=== PATIENT | female | born 1970 | race Caucasian/White ===

== ENCOUNTER 2023-01-27 10:19 | Outpatient (OUT) | payer MEDICARE, SELFPAY ==
--- NOTE | 2023-01-27 10:22 | XR_ITS ---
[facility] [id number] Patient Name: MARY JANE SANTOS MRN: [id number] date: 1970 Sex: F Assigned Patient Location: [facility] Current Patient Location: [facility] Accession/Order Number: [id number] Exam Date: 01/27/2023 10:30 Report Date: 01/27/2023 11:14 At the request of: AFIA LAO Procedure: XR knee LT 4V EXAM: XR knee LT 4V HISTORY: Left Knee Pain M25.562 COMPARISON: None. TECHNIQUE: Four views of the left knee. FINDINGS: No acute fracture or dislocation. No knee effusion identified. Moderate to severe tricompartmental degenerative changes are present, greatest at the patellofemoral articulation. There is a linear high density foreign body present in the region of the anterior soft tissues of the proximal delcid, which may represent a soft tissue foreign body or may be on the skin surface. XR/XR knee LT 4V IMPRESSION: 1. No acute osseous abnormality. 2. Question of a soft tissue foreign body versus surface debris at the anterior proximal delcid. 3. Advanced tricompartmental degenerative change. Electronically authenticated by: VESTA CROCKETT Date: 01/27/2023 11:14
== END 2023-01-27 10:20 | disposition home or self-care (01) ==
LOC: RAD 10:19
PROVIDERS: PCP Nurse Practitioner Family; Visit Provider Orthopaedic Surgery
DX: M25.562 Pain in left knee (principal)
CPT/HCPCS: 73564

== ENCOUNTER 2023-02-27 15:29 | Outpatient (REF) | payer MEDICARE, SELFPAY ==
[2023-02-27 16:24] LABS: Internal Control Within Normal Limits; Strep A Antigen Screen Negative
== END 2023-02-27 15:30 | disposition home or self-care (01) ==
LOC: LAB 15:29
PROVIDERS: PCP Nurse Practitioner Family; Visit Provider Nurse Practitioner Family
DX: J02.9 Acute pharyngitis, unspecified (principal)
CPT/HCPCS: 87070; 87880

== ENCOUNTER 2023-05-27 17:03 | Outpatient (REF) | payer MEDICARE, SELFPAY ==
[2023-05-27 17:28] LABS: Influenza Virus A Antigen Negative; Influenza Virus B Antigen Negative; Internal Control Within Normal Limits; SARS-CoV-2 Ag NEGATIVE (NEGATIVE)
[2023-05-28 10:20] LABS: SARS-CoV-2 NAA NOT DETECTED (NOT DETECTE)
== END 2023-05-27 17:04 | disposition home or self-care (01) ==
LOC: LAB 17:03
PROVIDERS: PCP Nurse Practitioner Family; Visit Provider Nurse Practitioner Family
DX: R05.9 Cough, unspecified (principal)
CPT/HCPCS: 87635; 87804; 87811

== ENCOUNTER 2023-06-17 14:48 | Outpatient (OUT) | payer MEDICARE, MEDICAID, SELFPAY ==
--- OUTSIDE RECORDS SUMMARY | 2023-06-17 14:55 | XMS_ITS | CCD ---
Author Name Unknown Address [address] [facility] [address] [place] [address] Organization [facility] Care Team Providers Care Clinical Manager Home Care Name Role Phone ANTONIO BRIAN Unavailable Unavailable JARAD NULL Unavailable Unavailab le HOY, SEA Primary Care Unavailable HOY, SEA Referring Unavailable ELTAHAWY, EHAB A Admitting Unavailable ELTAHAWY, EHAB A Attending Unavailable HOMau, SEA Primary Care Unavailable HOY, SEA Referring Unavailable ELTAHAWY, EHAB A Admitting Unavailable ELTAHAWY, EHAB A Attending Unavailable Jasmine, Anila Unavailable Arthur Moy Unavailable MD Arthur Moy Attending Provider [phone] SHANTANU, ANN Primary Care Unavailable JASMINE, ANILA Admitting Unavailable JASMINE, ANILA Attending Unavailable JASMINE, ANILA Consulting Unavailable SHANTANU, ANN Primary Care Unavailable SHANTANU, ANN Admitting Unavailable SHANTANU, ANN Attending Unavailable SHANTANU, ANN Consulting Unavailable Zieber, Win Consulting Unavailable SHANTANU, ANN Primary Care Unavailable SHANTANU, ANN Admitting Unavailable ANN FOURNIER Attending Unavailable SHANTANU, ANN Consulting Unavailable JASMINE, ANILA Admitting Unavailable JASMINE, ANILA Attending Unavailable JASMINE, ANILA Consulting Unavailable SHANTANU, ANN Primary Care Unavailable SAMSA ., DENYS Admitting Unavailable SAMSA ., DENYS Attending Unavailable Win Hall Consulting Unavailable SHANTANU, ANN Primary Care Unavailable LAYLA ., DENYS Consulting Unavailable AMILCAR, DR AZEEM Whyte Admitting Unavailable AMILCAR, DR AZEEM Whyte Attending Unavailable AMILCAR, DR AZEEM Whyte Consulting Unavailable SHANTANU, ANN Primary Care Unavailable WIN KOHLI Consulting Unavailable SHANTANU, ANN Primary Care Unavailable PAY ., DR HURD Admitting Unavailable PAY ., DR HURD Attending Unavailable PAY ., DR HURD Consulting Unavailable ANN FOURNIER Primary Care Unavailable ANN FOURNIER Admitting Unavailable ANN FOURNIER Attending Unavailable ANN FOURNIER Consulting Unavailable Misha Christian Unavailable ENEDINA ROMERO Attending Unavailable CAROLYN Fournier Primary Care Provider MD Anila Granados Attending Provider Ann Fournier Primary Care Unavailable Anila Granados Admitting Unavailable Anila Granados Attending Unavailable Olexa, Arthur Attending Unavailable Olexa, Arthur Admitting Unavailable Olexa, Arthur Admitting Unavailable Olexa, Arthur Attending Unavailable Allergies Allergy Classification Reported Allergen(s) Allergy Type Date of Onset Reaction(s) Facility Acetaminophen / oxyCODONE (1 source) Acetaminophen / oxyCODONE Drug Allergy 021 [facility] Repository Aspirin (1 source) Aspirin Drug Allergy 021 [facility] Cephalosporins (antibiotic) (3 sources) Cephalexin; 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: [cephalexin] Drug Allergy 021 [facility] Macrolides (antibiotic) (1 source) Clarithromycin Drug Allergy 021 [facility] Penicillins (antibiotic) (1 source) Penicillin Drug Allergy 021 [facility] Quinolones (antibiotic) (2 sources) moxifloxacin; 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: [Cipro] Drug Allergy 021 [facility] Sulfamethoxazole / Trimethoprim (1 source) Sulfamethoxazole / Trimethoprim Drug Allergy 021 [facility] Unclassified (10 sources) Adhesive agent Drug allergy (disorder) 021 Unknown [facility] Repository (9 sources) Acetaminophen / oxyCODONE Drug Allergy Unknown [employer] Other (9 sources) Aspirin Drug Allergy Unknown [employer] Other (10 sources) cefprozil; 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: [Cefzil] Drug Allergy 013 Unknown [facility] Repository (9 sources) Cephalexin Drug Allergy Unknown [facility] Other (9 sources) Cephalosporins (Antibiotic) Propensity to adverse reactions Hives [facility] Other (18 sources) Ciprofloxacin; 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: [ciprofloxacin] Drug Allergy Unknown [facility] Other (18 sources) moxifloxacin Drug Allergy Hives [facility] Other (9 sources) oxyCODONE Drug Allergy nausea [facility] Other (9 sources) penicillAMINE Drug Allergy anaphylaxis [facility] Other (9 sources) Penicillins Propensity to adverse reactions Unknown [facility] Other (10 sources) Soy protein; 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: [soy] Propensity to adverse reactions anaphylaxis [facility] Repository (9 sources) Sulfamethoxazole Drug Allergy Anaphylaxis [facility] Other (9 sources) Sulfamethoxazole / Trimethoprim Drug Allergy anaphylaxis [facility] Other (9 sources) Sulfanilamide Drug Allergy Anaphylaxis [facility] Other (9 sources) Trimethoprim Drug Allergy Anaphylaxis [facility] Other (9 sources) Foam Tape Propensity to adverse reactions Unknown [facility] Other (9 sources) BCise Propensity to adverse reactions stomach upset [facility] Other (9 sources) Avalox Propensity to adverse reactions Unknown [facility] Other (1 source) Acetaminophen / oxyCODONE Drug Allergy [facility] Repository (1 source) Aspirin Drug Allergy [facility] Repository (1 source) Cephalexin Drug Allergy [facility] Repository (1 source) Ciprofloxacin Drug Allergy [facility] Repository (1 source) Clarithromycin Drug Allergy [facility] Repository (1 source) Desonide Drug Allergy [facility] Repository (1 source) egg extract Drug Allergy [facility] Repository (1 source) moxifloxacin Drug Allergy [facility] Repository (1 source) Penicillins Drug allergy (disorder) [facility] Repository (1 source) Sulfamethoxazole / Trimethoprim Drug Allergy [facility] Repository (1 source) tomato allergenic extract Drug Allergy [facility] (1 source) Misc-ENV; 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: [Misc-ENV] Propensity to adverse reactions (disorder) [facility] Repository (1 source) Misc-Other; 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: [Misc-Other] Propensity to adverse reactions (disorder) [facility] Repository (1 source) Misc-Food; 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: [Misc-Food] Food allergy (disorder) [facility] Repository (6 sources) Azithromycin Drug Allergy rash [employer] Other Medications Current Medications Medication Drug Class(es) Dates Sig (Normalized) Sig (Original) [id number] 200 actuat albuterol 0.09 mg/actuat metered dose inhaler (17 sources) beta2-Adrenergic Agonist Albuterol Sulfate (2.5 MG/3ML) 0.083% Inhalation for 30 Days Active take 2 puff(s) by in halation every four hours as needed Ventolin HFA 108 (90 Base) MCG/ACT 2 puffs as needed Inhalation every 4 hrs Active allopurinol 300 mg oral tablet (9 sources) Xanthine Oxidase Inhibitor take 1 tablet by mouth every twenty-four hours Allopurinol 300 MG 1 tablet Orally Once a day Active ascorbic acid 250 mg chewable tablet (3 sources) Vitamin C take 1 tablet by mouth every twenty-four hours Vitamin C 250 MG 1 tablet Orally Once a day Active biotin 10 mg oral tablet (9 sources) take 1 tablet by mouth once daily Biotin 10 MG 1 tablet Orally Once a day Active 120 actuat budesonide 0.16 mg/actuat / formoterol fumarate 0.0045 mg/actuat metered dose inhaler (9 sources) Corticosteroid, beta2-Adrenergic Agonist take 2 puff(s) by inhalation twice daily Symbicort 160-4.5 MCG/ACT 2 puffs Inhalation Twice a day Active cholecalciferol 0.05 mg oral capsule (6 sources) Vitamin D take 1 capsule by mo [facility] every twenty-four hours Vitamin D3 50 MCG (1999 UT) 1 capsule Orally Once a day Active Cholest Off 450 MG (9 sources) take 450 mg by mouth twice daily Cholest Off 450 MG Orally TWICE A DAY Active Cholest Off 450 MG Orally Active Cinnamon Preparation (9 sources) Non-Standardized Food Allergenic Extract take 1000 mg by mouth twice maura y Cinnamon 1000 MG as directed Orally TWICE A DAY Active Cinnamon 1000 MG as directed Orally Active cyclobenzaprine hydrochlorid e 10 mg oral tablet (9 sources) Muscle Relaxant Flexeril 10mg 1 Oral once daily Active docusate sodium 250 mg oral capsule (9 sources) take 1 capsule by mo [facility] every twenty-four hours Stool Softener 250 MG 1 capsule as needed Orally Once a day Active take 3 capsules by [facility] every twenty-four hours Stool Softener 250 MG 3 capsule as needed Orally Once a day Active 0.5 ML dulaglutide 9 MG/ML A uto-Injector [Trulicity] (9 sources) GLP-1 Receptor Agonist inject 3 mg by subcu taneous injection every week Trulicity 4.5 MG/0.5ML 3mg Subcutaneous weekly for 84 days Active 2 ml dupilumab 150 mg/ml auto-injector (9 sources) Interleukin-4 Receptor alpha Antagonist Dupixent 300 MG/2ML as directed Subcutaneous EVERY 14 DAYS Active famotidine 20 mg oral tablet (9 sources) Histamine-2 Receptor Antagonist take 1 tablet by mouth every twenty-four hours Pepcid 20 MG 1 tablet Orally Once a day Active fenofibrate 160 mg oral tablet (9 sources) Peroxisome Proliferator Receptor alpha Agonist take 1 tablet by mouth every twenty-four hours Fenofibrate 160 MG 1 tablet Orally Once a day Active fexofenadine hydrochloride 180 mg oral tablet (9 sources) Histamine-1 Receptor Antagonist take 1 tablet by mouth every twenty-four hours Fexofenadine HCl 180 MG 1 tablet Orally Once a day for 30 day(s) Active Fiber (Guar Gum) 15 Grams (9 sources) take 15 g by mouth once daily Fi jamal (Guar Gum) 15 Grams as directed Orally once a day Active fluticasone propionate 0.05 mg/actuat metered dose nasal spray (9 sources) Corticosteroid take 2 spray(s) nasa l route once daily Fluticasone Propionate 50 MCG/ACT 2 sprays Nasally Once a day for 30 day(s) Active FreeStyle Lisbeth 14 Day Senso r - (8 sources) Start: 08-03-2019 Start: 08-03-2019 FreeStyle Libr e 14 Day Sensor - as directed SQ change every 14 days for 84 days Jul, Active FreeStyle Lisbeth 2 Sensor - (9 sources) Start: 11-15-2020 Start: 11-15-2020 FreeStyle Libr e 2 Sensor - as directed SQ change every 14 days for 84 days Oct, Active furosemide 40 mg oral tablet (9 sources) Loop Diuretic take 1 tablet by mouth every twelve hours Lasix 40 mg 1 tablet Orally bid for 90 day(s) Active insulin, regular, human 500 unt/ml injectable solution (9 sources) Insulin HumuLIN R U-500 (CONCENTRATED) 500 UNIT/ML as directed Subcutaneous INSULIN PUMP Active Iron (9 sources) Iron (Ferrous Gl uconate) 325 MG Orally Active krill oil 300 mg oral capsul e (9 sources) Krill Oil 300 MG Orally Active levothyroxine sodium 0.175 mg oral tablet (9 sources) l-Thyroxine Levothyroxine So dium 175 MCG 1 tablet every morning on an empty stomach Orally Once a day Active metoprolol tartrate 50 mg oral tablet (9 sources) beta-Adrenergic Jennifer take 1 tablet by mouth every twelve hours Metoprolol Tartrate 50 MG 1 tablet Orally Twice a day for 30 day(s) Active montelukast 10 mg oral tablet (9 sources) Leukotriene Receptor Antagonist take 1 tablet by mouth every twenty-four hours Singulair 10 MG 1 tablet Orally Once a day not surer of doseage Active Multivitamins (9 sources) Multivitamins as directed Orally Active OmniPod Dash 5 Pack - (3 sources) OmniPod Dash 5 P ack - as directed In Vitro Change every 72 hours for 90 days Active Omnipod DASH Pods (Gen 4) - (2 sources) Omnipod DASH Pod s (Gen 4) - for 90 Days Active One Touch Glucometer 1 (3 sources) Start: 7 One Touch Glucometer 1 as directed SQ qid for 365 days Oct, Active pantoprazole 40 mg delayed release oral tablet (9 sources) Proton Pump Inhibitor take 1 tablet by mouth every twelve hours Protonix 40 mg 1 tablet Orally bid Active Pen Pepin 5/16 (3 sources) Start: 9 Pen Pepin 5/16 USE WITH PEN INSULIN SQ qid for 90 day(s) Jul, Active pregabalin 100 mg oral capsule (9 sources) take 1 capsule by mouth every eight hours Lyrica 100 MG 1 capsule Orally tid Active Probiotic - (9 sources) Probiotic - Oral ly Active Spiriva Respimat 2.5 mcg/act uation (9 sources) Spiriva Respimat 2.5 mcg/actuation 2 puffs daily Active Super B Complex (9 sources) Super B Complex Active traMADol hydrochloride 50 mg oral tablet (4 sources) Opioid Agonist Start: 10-07-2022 take 1 tablet by mouth every six hours as needed for pain traMADol HCl 50 MG 1 tablet as needed for pain Orally up to every 6 hrs for 7 days ANIYAH: [id number] September, Active triamcinolone acetonide 0.001 mg/mg topical ointment (8 sources) Corticosteroid Triamcinolone Acetonide 0.1 % External for 90 Days Active Vitamin C 250 MG (6 sources) take 1 tablet by mouth once maura y Vitamin C 250 MG 1 tablet Orally Once a day Active Vitamin E 400 UNIT (9 sources) take 1 capsule by mouth once aileen ly Vitamin E 400 UNIT 1 capsule Orally Once a day Active Zinc (1 source) take 1 tablet by eva th once daily Zinc 50 MG 1 tablet Orally Once a day Active zinc gluconate 50 mg oral tablet (5 sources) take 1 tablet by eva th every twenty-four hours Completed/Discontinued Medications Medication Drug Class(es) Dates Sig (Normalized) Sig (Original) doxycycline hyclate 100 mg oral capsule (1 source) Tetracycline-clas s Drug Doxycycline Hyclate 100 MG Oral for 14 Days Not-Taking Durolane (1 source) Start: 11-11-2022 Durolane Oct, 60 mg zileuton 600 mg oral tablet (2 sources) 5-Lipoxygenase Inhibitor take 2 tablets by mouth every twelve hours Zyflo 600 MG 2 tablet orally bid Not-Taking Problems Active Problems Problem Classification Problem Date Documented Date Episodic/Chronic Asthma (20 sources) Cough variant asthma; 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: [Cough variant asthma] Onset: 08-24-2007 Chronic Chronic kidney disease (20 sources) Chronic kidney disease stage 2; 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: [CKD (chronic kidney disease) stage 2, GFR 60-89 ml/min] Onset: 09-10-2021 Chronic Chronic kidney disease (13 sources) Chronic kidney disease; 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: [Chronic kidney disease, stage III (moderate)] Onset: 08-02-2021 Resolved: 02-11-2022 Chronic obstructive pulmonary disease and bronchiectasis (2 sources) Unspecified chronic bronchitis; 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: [Chronic obstructive pulmonary disease with (acute) exacerbation] Onset: 09-06-2021 Chronic Coronary atherosclerosis and other heart disease (1 source) Coronary atherosclerosis and other heart disease Onset: 11-06-2017 Deficiency and other anemia (9 sources) Anemia in chronic kidney disease; 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: [Anemia in chronic kidney disease] Chronic Deficiency and other anemia (9 sources) Iron deficiency anemia; 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: [Iron deficiency anemia] Episodic Diabetes mellitus with complications (20 sources) Disorder of kidney due to diabetes mellitus; 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: [Type 2 diabetes mellitus with diabetic nephropathy] Onset: 02-10-2012 Resolved: 02-11-2022 Chronic Diabetes mellitus without complication (20 sources) Insulin dose changed; 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: [Encounter for fitting and adjustment of insulin pump] Onset: 08-24-2007 Chronic Diabetes mellitus without complication (10 sources) Insulin pump present; 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: [Presence of insulin pump (external) (internal)] Onset: 02-07-2022 Episodic Diabetes mellitus without complication (1 source) Diabetes mellitus without complication; 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: [Type 2 diabetes mellitus with diabetic chronic kidney disease] Onset: 04-30-2023 Disorders of lipid metabolism (20 sources) Hyperlipidemia; 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: [Other and unspecified hyperlipidemia] Onset: 08-24-2007 Chronic Esophageal disorders (10 sources) Gastroesophageal reflux disease; 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: [GERD [Gastroesophageal reflux disease]] Onset: 09-06-2021 Chronic Essential hypertension (9 sources) Essential hypertension; 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: [Essential (primary) hypertension] Chronic Fluid and electrolyte disorders (6 sources) Other disorders of electrolyte and fluid balance, not elsewhere classified; 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: [OTHER D/O ELECTROLYTE AND FL BAL NEC] Onset: 08-02-2021 Resolved: 02-11-2022 Episodic Hypertension with complications and secondary hypertension (19 sources) Chronic kidney disease due to hypertension; 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: [Hypertensive chronic kidney disease with stage 1 through stage 4 chronic kidney disease, or unspecified chronic kidney disease] Onset: 08-02-2021 Resolved: 02-11-2022 Chronic Nonspecific chest pain (1 source) Chest pain, unspecified; 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: [Chest pain, unspecified] Onset: 11-06-2017 Episodic Nutritional deficiencies (15 sources) Vitamin D deficiency; 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: [Vitamin D deficiency, unspecified] Onset: 08-02-2021 Resolved: 02-11-2022 Chronic Osteoarthritis (20 sources) Osteoarthritis; 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: [DJD (degenerative joint disease)] Onset: 08-24-2007 Chronic Other aftercare (9 sources) Long-term current use of insulin; 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: [skilled nursing (current) use of insulin] Episodic Other aftercare (9 sources) H/O: high risk medication; 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: [Other terminal supervisor (current) drug therapy] Episodic Other diseases of kidney and ureters (9 sources) Renal osteodystrophy; 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: [Renal osteodystrophy] Chronic Other endocrine disorders (9 sources) 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; 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: [Other hypoglycemia] Chronic Other endocrine disorders (6 sources) Hypoparathyroidism; 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: [Hypoparathyroidism, unspecified] Chronic Other endocrine disorders (3 sources) Hypoparathyroidism, unspecified; 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: [Hypoparathyroidism, unspecified] Onset: 04-30-2023 Chronic Other inflammatory condition of skin (1 source) Pruritus, unspecified Episodic Other lower respiratory disease (9 sources) Dyspnea on exertion; 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: [Dyspnea on exertion] Episodic Other nervous system disorders (9 sources) Chronic pain; 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: [Other chronic pain] Chronic Other nervous system disorders (6 sources) Paresthesia; 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: [Paresthesia of skin] Episodic Other nervous system disorders (1 source) Anesthesia of skin Episodic Other nervous system disorders (1 source) Paresthesia of skin Episodic Other non-traumatic joint disorders (9 sources) Lower limb joint arthritis; 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: [Osteoarthrosis, unspecified whether generalized or localized, lower leg] Onset: 11-26-2007 Chronic Other non-traumatic joint disorders (4 sources) Pain in left hip; 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: [PAIN IN LEFT HIP] Onset: 07-08-2022 Episodic Other nutritional; endocrine; and metabolic disorders (20 sources) Body mass index 40+ - severely obese; 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: [Body mass index (BMI) 50.0-59.9, adult] Chronic Other nutritional; endocrine; and metabolic disorders (9 sources) Morbid obesity; 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: [Morbid (severe) obesity due to excess calories] Chronic Other nutritional; endocrine; and metabolic disorders (3 sources) Morbid (severe) obesity due to excess calories; 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: [MORBID SEVERE OBES D/T EXCESS VANI] Onset: 09-10-2021 Chronic Other nutritional; endocrine; and metabolic disorders (1 source) Body mass index (BMI) 45.0-49.9, adult; 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: [BODY MASS INDEX BMI 45.0-49.9 ADULT] Onset: 09-10-2021 Chronic Other nutritional; endocrine; and metabolic disorders (4 sources) Severe obesity; 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: [Morbid (severe) obesity due to excess calories] Chronic Other nutritional; endocrine; and metabolic disorders (2 sources) Body mass index (BMI) 50.0-59.9, adult Chronic Other upper respiratory disease (9 sources) Allergic rhinitis; 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: [Allergic rhinitis due to other allergen] Onset: 06-09-2009 Chronic Other upper respiratory infections (10 sources) Chronic sinusitis; 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: [Unspecified sinusitis (chronic)] Onset: 06-09-2009 Chronic Spondylosis; intervertebral disc disorders; other back problems (20 sources) Solitary sacroiliitis; 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: [Sacroiliitis, not elsewhere classified] Chronic Spondylosis; intervertebral disc disorders; other back problems (1 source) Cervicalgia Episodic Thyroid disorders (19 sources) Hypothyroidism; 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: [Hypothyroidism, unspecified] Onset: 08-24-2007 Chronic Unclassified (2 sources) Chest pain, unspecified / R07.9(ICD-9) Onset: 11-06-2017 Unclassified (1 source) Shortness of breath / R06.02(ICD-9) Onset: 11-06-2017 Unclassified (1 source) Supraventricular tachycardia / I47.1(ICD-9) Onset: 11-06-2017 Unclassified (1 source) Morbid (severe) obesity due to excess calories / E66.01(ICD-9) Onset: 11-06-2017 Unclassified (1 source) CHRN KIDNEY DISEASE STG 3 UNSP; 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: [CHRN KIDNEY DISEASE STG 3 UNSP] Onset: 08-19-2022 Unclassified (1 source) CONTACT W/AND (SUSP) EXPOS COVID-19; 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: [CONTACT W/AND (SUSP) EXPOS COVID-19] Onset: 05-18-2022 Unclassified (1 source) Pain in left knee; 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: [Pain in left knee] Onset: 09-23-2022 Unclassified (1 source) Pain in right shoulder; 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: [Pain in right shoulder] Onset: 08-19-2022 Past or Other Problems Problem Classification Problem Date Documented Date Episodic/Chronic Deficiency and other anemia (1 source) Anemia, unspecified; 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: [ANEMIA UNSPECIFIED] Onset: 02-07-2022 Episodic Fever of unknown origin (4 sources) Fever, unspecified; 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: [FEVER UNSPECIFIED] Onset: 05-13-2022 Episodic Other aftercare (1 source) Other terminal supervisor (current) drug therapy; 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: [OTH MANAGER PROGRAM MANAGEMENT CURRENT DRUG THERAPY] Onset: 09-10-2021 Episodic Other aftercare (1 source) skilled nursing (current) use of insulin; 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: [MANAGER PROGRAM MANAGEMENT CURRENT USE OF INSULIN] Onset: 09-10-2021 Episodic Other connective tissue disease (1 source) Other enthesopathies, not elsewhere classified Onset: 10-22-2021 Resolved: 10-22-2021 Episodic Other disorders of stomach and duodenum (9 sources) Gastroparesis syndrome; 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: [Gastroparesis] Onset: 02-10-2012 Episodic Other lower respiratory disease (3 sources) Shortness of breath; 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: [SHORTNESS OF BREATH] Onset: 09-04-2021 Episodic Other non-traumatic joint disorders (1 source) Pain in left shoulder Onset: 10-22-2021 Resolved: 10-22-2021 Episodic Other upper respiratory infections (3 sources) Acute pharyngitis, unspecified; 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: [ACUTE PHARYNGITIS UNSPECIFIED] Onset: 09-07-2021 Episodic Residual codes; unclassified (1 source) Acquired absence of other specified parts of digestive tract; 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: [ACQ ABSENCE OTH PART DIGESTV TRACT] Onset: 09-10-2021 Episodic Results Test Name Value Interpretation Reference Range Facility Albumin [Mass/volume] in Ser um or Plasma by Bromocresol green (BCG) dye binding methoOrdered By: Anila Granados on 04-30-2023 Albumin BCG dye [Mass/Vol] 3.8 g/dL 3.5-5.7 [facility] Automated erythrocytes count in urine sediment (number/area)Ordered By: Anila Granados on 04-30-2023 RBC Auto (Urine sed) [#/Area] 5-9 [HPF] 0-4 [facility] Automated leukocytes count i n urine sediment (number/area)Ordered By: Anila Granados on 04-30-2023 WBC Auto (Urine sed) [#/Area] 1-2 [HPF] 0-4 [facility] Bilirubin Test strip Ql (U)O rdered By: Anila Granados on 04-30-2023 Bilirubin Ql (U) Negative Negative [facility] Calcium [Mass/volume] in Ser um or PlasmaOrdered By: Anila Granados on 04-30-2023 Calcium [Mass/Vol] 9.1 mg/dL 8.6-10.3 [facility] Carbon dioxide, total [Moles /volume] in Serum or PlasmaOrdered By: Anila Granados on 04-30-2023 CO2 [Moles/Vol] 31.5 mmol/L 21.0-31.0 [facility] Chloride [Moles/volume] in S [place] or PlasmaOrdered By: Anila Granados on 04-30-2023 Chloride [Moles/Vol] 102 mmol/L 98-107 [facility] Color Auto (U)Ordered By: Ab garcia Granados on 04-30-2023 Color (U) Yellow Yellow [facility] Creatinine [Mass/volume] in Serum or PlasmaOrdered By: Anila Granados on 04-30-2023 Creatinine [Mass/Vol] 1.53 mg/dL 0.60-1.20 [facility] Creatinine [Mass/volume] in UrineOrdered By: Anila Granados on 04-30-2023 Creatinine (U) [Mass/Vol] 34.0 mg/dL 11.0-20.0 [facility] Dipstick and Microscopicon 1 06-30-2022 Appearance (U) Clear Normal Clear [facility] Comment on above: Order Comment: Reaso n for Exam Chronic kidney disease, stage III (moderate);Disorders of fl Name Collection Type:: Clean-Voided Midstream Performed By: #### A DDONUAPLUS #### [facility] [address] [place] [address] [place] Bacteria,Urine None Seen Normal None Seen [facility] Comment on above: Order Comment: Reaso n for Exam Chronic kidney disease, stage III (moderate);Disorders of fl Name Collection Type:: Clean-Voided Midstream Performed By: #### A DDONUAPLUS #### [facility] [address] [place] [address] [place] Bilirubin,Urine Negative Normal Negative [facility] Comment on above: Order Comment: Reaso n for Exam Chronic kidney disease, stage III (moderate);Disorders of fl Name Collection Type:: Clean-Voided Midstream Performed By: #### A DDONUAPLUS #### [facility] [address] [place] [address] [place] Color (U) Yellow Normal Yellow [facility] Comment on above: Order Comment: Reaso n for Exam Chronic kidney disease, stage III (moderate);Disorders of fl Name Collection Type:: Clean-Voided Midstream Performed By: #### A DDONUAPLUS #### [facility] [address] [place] [address] [place] Glucose Ql (U) Normal Normal Normal [facility] Comment on above: Order Comment: Reaso n for Exam Chronic kidney disease, stage III (moderate);Disorders of fl Name Collection Type:: Clean-Voided Midstream Performed By: #### A DDONUAPLUS #### [facility] [address] [place] [address] [place] Hyaline Casts,Urine None Seen Normal 0-8 [facility] Comment on above: Order Comment: Reaso n for Exam Chronic kidney disease, stage III (moderate);Disorders of fl Name Collection Type:: Clean-Voided Midstream Result Comment: PERF ORMED BY: [place] [address] PATHOLOGIST GENERAL EDUCATION INSTRUCTOR MEERA GRIFFITHS M.D. Performed By: #### A DDONUAPLUS #### [facility] [address] [place] [address] [place] Ketones Ql (U) Negative Normal Negative [facility] Comment on above: Order Comment: Reaso n for Exam Chronic kidney disease, stage III (moderate);Disorders of fl Name Collection Type:: Clean-Voided Midstream Performed By: #### A DDONUAPLUS #### [facility] [address] [place] [address] Leukocyte esterase Test strip Ql (U) 1+ High Negative [facility] Comment on above: Order Comment: Reaso n for Exam Chronic kidney disease, stage III (moderate);Disorders of fl Name Collection Type:: Clean-Voided Midstream Performed By: #### A DDONUAPLUS #### [place] [address] [place] Nitrite,Urine Negative Normal Negative [facility] Comment on above: Order Comment: Reaso n for Exam Chronic kidney disease, stage III (moderate);Disorders of fl Name Collection Type:: Clean-Voided Midstream Performed By: #### A DDONUAPLUS #### [place] [address] [place] Occult Blood,Urine Negative Normal Negative [facility] Comment on above: Order Comment: Reaso n for Exam Chronic kidney disease, stage III (moderate);Disorders of fl Name Collection Type:: Clean-Voided Midstream Performed By: #### A DDONUAPLUS #### [facility] [address] [place] [address] [place] pH (U) 6.5 [pH] Normal 5.0-9.0 [facility] Comment on above: Order Comment: Reaso n for Exam Chronic kidney disease, stage III (moderate);Disorders of fl Name Collection Type:: Clean-Voided Midstream Performed By: #### A DDONUAPLUS #### [facility] [address] [place] [address] [place] Protein,Urine Negative Normal Negative [facility] Comment on above: Order Comment: Reaso n for Exam Chronic kidney disease, stage III (moderate);Disorders of fl Name Collection Type:: Clean-Voided Midstream Performed By: #### A DDONUAPLUS #### [facility] [address] [place] [address] RBC,Urine 5-9 High 0-4 [facility] Comment on above: Order Comment: Reaso n for Exam Chronic kidney disease, stage III (moderate);Disorders of fl Name Collection Type:: Clean-Voided Midstream Performed By: #### A DDONUAPLUS #### [facility] [address] [place] [address] Specificy [place],Urine 1.010 Normal 1.001-1.030 [facility] Comment on above: Order Comment: Reaso n for Exam Chronic kidney disease, stage III (moderate);Disorders of fl Name Collection Type:: Clean-Voided Midstream Performed By: #### A DDONUAPLUS #### [address] Squamous Epithelial Cell,Urine 0-1 Normal 0-2 [facility] Comment on above: Order Comment: Reaso n for Exam Chronic kidney disease, stage III (moderate);Disorders of fl Name Collection Type:: Clean-Voided Midstream Performed By: #### A DDONUAPLUS #### [address] Urobilinogen,Urine Normal Normal Normal [facility] Comment on above: Order Comment: Reaso n for Exam Chronic kidney disease, stage III (moderate);Disorders of fl Name Collection Type:: Clean-Voided Midstream Performed By: #### A DDONUAPLUS #### [facility] [address] [place] [address] WBC,Urine 1-2 Normal 0-4 [facility] Comment on above: Order Comment: Reaso n for Exam Chronic kidney disease, stage III (moderate);Disorders of fl Name Collection Type:: Clean-Voided Midstream Performed By: #### A DDONUAPLUS #### [address] Erythrocyte distribution wid th Auto (RBC) [Ratio]Ordered By: Anila Granados on 04-30-2023 Erythrocyte distribution width (RBC) [Ratio] 14.9 % 11.9-15.3 [facility] Glucose [Mass/volume] in Ser um or PlasmaOrdered By: Anila Granados on 04-30-2023 Glucose [Mass/Vol] 244 mg/dL 70-100 [facility] Comment on above: ADA recommended refe rence rangeRandom Glucose Reference Range is dependent on time and content of last meal. Glucose of more than 200 mg/dL in a nonstressed, ambulatory subject supports the diagnosis of Diabetes Mellitus. Hematocrit Auto (Bld) [Volum e fraction]Ordered By: Anila Granados on 04-30-2023 Hematocrit (Bld) [Volume fraction] 38.6 % 34.0-46.4 [facility] Hemoglobin [Mass/volume] in BloodOrdered By: Anila Granados on 04-30-2023 Hemoglobin (Bld) [Mass/Vol] 12.7 g/dL 11.8-15.4 [facility] Hemogram CBC Without Diffon 04-30-2023 Erythrocyte distribution width (RBC) [Ratio] 14.9 % Normal 11.9-15.3 [facility] Comment on above: Order Comment: Reaso n for Exam Chronic kidney disease, stage III (moderate);Disorders of fl Performed By: #### C BCNO #### [facility] [address] [place] [address] Hematocrit (Bld) [Volume fraction] 38.6 % Normal 34.0-46.4 [facility] Comment on above: Order Comment: Reaso n for Exam Chronic kidney disease, stage III (moderate);Disorders of fl Performed By: #### C BCNO #### [facility] [address] [place] [address] Hemoglobin (Bld) [Mass/Vol] 12.7 g/dL Normal 11.8-15.4 [facility] Comment on above: Order Comment: Reaso n for Exam Chronic kidney disease, stage III (moderate);Disorders of fl Performed By: #### C BCNO #### [address] MCH (RBC) [Entitic mass] 31.6 pg Normal 24.7-34.3 [facility] Comment on above: Order Comment: Reaso n for Exam Chronic kidney disease, stage III (moderate);Disorders of fl Performed By: #### C BCNO #### [address] MCV (RBC) [Entitic vol] 96.3 fL Normal 80-100 [facility] Comment on above: Order Comment: Reaso n for Exam Chronic kidney disease, stage III (moderate);Disorders of fl Performed By: #### C BCNO #### [address] Mean Corpuscular HGB Conc 32.8 g/dL Normal 32.0-35.0 [facility] Comment on above: Order Comment: Reaso n for Exam Chronic kidney disease, stage III (moderate);Disorders of fl Performed By: #### C BCNO #### [address] Platelet mean volume (Bld) [Entitic vol] 10.8 fL High 6.3-10.7 [facility] Comment on above: Order Comment: Reaso n for Exam Chronic kidney disease, stage III (moderate);Disorders of fl Result Comment: PERF ORMED BY: [place] [address] PATHOLOGIST GENERAL EDUCATION INSTRUCTOR MEERA GRIFFITHS M.D. Performed By: #### C BCNO #### [address] Platelets (Bld) [#/Vol] 164 10*3/uL Normal 150-450 [facility] Comment on above: Order Comment: Reaso n for Exam Chronic kidney disease, stage III (moderate);Disorders of fl Performed By: #### C BCNO #### [address] RBC (Bld) [#/Vol] 4.01 10*6/uL Normal 3.60-5.00 [facility] Comment on above: Order Comment: Reaso n for Exam Chronic kidney disease, stage III (moderate);Disorders of fl Performed By: #### C BCNO #### [address] [place] [address] [place] WBC (Bld) [#/Vol] 5.2 10*3/uL Normal 3.8-11.6 [facility] Comment on above: Order Comment: Reaso n for Exam Chronic kidney disease, stage III (moderate);Disorders of fl Performed By: #### C BCNO #### [facility] [address] Ketones Auto test strip (U) [Mass/Vol]Ordered By: Anila Granados on 04-30-2023 Ketones (U) [Mass/Vol] Negative Negative [facility] - UrinalysisOrder ed By: Anila Granados on 04-30-2023 Hyaline casts LM Ql (Urine sed) None seen [LPF] 0-8 [facility] Leukocytes [#/volume] correc will for nucleated erythrocytes in Blood by Automated counOrdered By: Anila Granados on 04-30-2023 WBC corrected for nucl RBC Auto (Bld) [#/Vol] 5.2 10*3/uL 3.8-11.6 [facility] MCH Auto (RBC) [Entitic mass ]Ordered By: Anila Granados on 04-30-2023 MCH (RBC) [Entitic mass] 31.6 pg 24.7-34.3 [facility] MCHC Auto (RBC) [Mass/Vol]Or dered By: Anila Smithdir on 04-30-2023 MCHC (RBC) [Mass/Vol] 32.8 g/dL 32.0-35.0 [facility] MCV Auto (RBC) [Entitic vol] Ordered By: Anila Smithdir on 04-30-2023 MCV (RBC) [Entitic vol] 96.3 fL 80-100 [facility] Magnesiumon 04-30-2023 Magnesium [Mass/Vol] 1.9 mg/dL Normal 1.9-2.7 [facility] Comment on above: Order Comment: Reaso n for Exam Chronic kidney disease, stage III (moderate);Disorders of fl Performed By: #### U FERNANDO, RENAL, MG, [id number] #### [facility] [address] [place], [place] [id number] [facility] Magnesium [Mass/volume] in S faviola or PlasmaOrdered By: Anila Granados on 04-30-2023 Magnesium [Mass/Vol] 1.9 mg/dL 1.9-2.7 [facility] Nitrite Test strip Ql (U)Ord ered By: Anila Granados on 04-30-2023 Nitrite Ql (U) Negative Negative [facility] No Panel InformationOrdered By: Anila Granados on 04-30-2023 Estimated GFR (CKD-EPI) 40.189 mL/Min [facility] Creatinine Clearance (Chem N/A [facility] Parathyrin.intact [Mass/volu me] in Serum or PlasmaOrdered By: Anila Granados on 04-30-2023 Parathyrin.intact [Mass/Vol] 19.7 pg/mL [facility] Parathyroid Hormone Intacton 04-30-2023 Parathyroid Hormone Intact 19.7 pg/mL Normal [facility] Comment on above: Order Comment: Reaso n for Exam Chronic kidney disease, stage III (moderate);Disorders of fl Result Comment: PERF ORMED BY: [place] [address] PATHOLOGIST GENERAL EDUCATION INSTRUCTOR MEERA GRIFFITHS M.D. Performed By: #### P TH #### [facility] [address] [place], [place] [id number] [facility] Phosphate [Mass/volume] in S faviola or PlasmaOrdered By: Anila Granados on 04-30-2023 Phosphate [Mass/Vol] 4.1 mg/dL 2.5-4.5 [facility] Platelet mean volume Auto (B ld) [Entitic vol]Ordered By: Anila Granados on 04-30-2023 Platelet mean volume (Bld) [Entitic vol] 10.8 fL 6.3-10.7 [facility] Platelets Auto (Bld) [#/Vol] Ordered By: Anila Granados on 04-30-2023 Platelets (Bld) [#/Vol] 164 10*3/uL 150-450 [facility] Potassium [Moles/volume] in Serum or PlasmaOrdered By: Anila Granados on 04-30-2023 Potassium [Moles/Vol] 4.0 mmol/L 3.5-5.1 [facility] Protein Auto test strip (U) [Mass/Vol]Ordered By: Anila Sellersr on 04-30-2023 Protein (U) [Mass/Vol] Negative Negative [facility] Protein Creat Ratio Ur Rando mon 04-30-2023 Creatinine, Urine (Random) 34.0 mg/dL High 11.0-20.0 [facility] Comment on above: Order Comment: Reaso n for Exam Chronic kidney disease, stage III (moderate);Disorders of fl Performed By: #### P ROCRERAT ####[place] [address] [place] [address] [facility] Protein (U) [Mass/Vol] 4 mg/dL Normal 0-9 [facility] Comment on above: Order Comment: Reaso n for Exam Chronic kidney disease, stage III (moderate);Disorders of fl Performed By: #### P ROCRERAT ####[address] [address] [facility] Urine Protein/Creatinine Ratio 118 mg/g{Cre} Normal 0-200 [facility] Comment on above: Order Comment: Reaso n for Exam Chronic kidney disease, stage III (moderate);Disorders of fl Result Comment: PERF ORMED BY: [facility] [address] [employer] [place] [id number] PATHOLOGIST GENERAL EDUCATION INSTRUCTOR MEERA GRIFFITHS M.D. Performed By: #### P ROCRERAT ####[address] [address] [place] Protein [Mass/volume] in Uri neOrdered By: Anila Granados on 04-30-2023 Protein (U) [Mass/Vol] 4 mg/dL 0-9 [facility] RBC Auto (Bld) [#/Vol]Ordere d By: Anila Jasmine on 04-30-2023 RBC (Bld) [#/Vol] 4.01 10*6/uL 3.60-5.00 [facility] Renal Function Panelon 04-30 Albumin [Mass/Vol] 3.8 g/dL Normal 3.5-5.7 [facility] Comment on above: Order Comment: Reaso n for Exam Chronic kidney disease, stage III (moderate);Disorders of fl Performed By: #### U FERNANDO, RENAL, MG, [id number] #### [facility] [address] Anion gap [Moles/Vol] 12.5 mmol/L Normal 6.0-15.0 [facility] Comment on above: Order Comment: Reaso n for Exam Chronic kidney disease, stage III (moderate);Disorders of fl Performed By: #### U FERNANDO, RENAL, MG, [id number] #### [facility] [address] Calcium [Mass/Vol] 9.1 mg/dL Normal 8.6-10.3 [facility] Comment on above: Order Comment: Reaso n for Exam Chronic kidney disease, stage III (moderate);Disorders of fl Performed By: #### U FERNANDO, RENAL, MG, [id number] #### [facility] [address] [place] [address] [place] Chloride [Moles/Vol] 102 mmol/L Normal 98-107 [facility] Comment on above: Order Comment: Reaso n for Exam Chronic kidney disease, stage III (moderate);Disorders of fl Performed By: #### U FERNANDO, RENAL, MG, [id number] #### [facility] [address] [place] [id number] [place] CO2 [Moles/Vol] 31.5 mmol/L High 21.0-31.0 [facility] Comment on above: Order Comment: Reaso n for Exam Chronic kidney disease, stage III (moderate);Disorders of fl Performed By: #### U FERNANDO, RENAL, MG, [id number] #### [facility] [address] [place] [id number] [facility] Creatinine [Mass/Vol] 1.53 mg/dL High 0.60-1.20 [facility] Comment on above: Order Comment: Reaso n for Exam Chronic kidney disease, stage III (moderate);Disorders of fl Performed By: #### U FERNANDO, RENAL, MG, [id number] #### [facility] [address] [place] [address] [place] GFR/1.73 sq M.predicted MDRD (S/P/Bld) [Vol rate/Area] 40.189 mL/min/{1.73_m2} Normal [facility] Comment on above: Order Comment: Reaso n for Exam Chronic kidney disease, stage III (moderate);Disorders of fl Performed By: #### U FERNANDO, RENAL, MG, [id number] #### [facility] [address] [place] [id number] [facility] Glucose [Mass/Vol] 244 mg/dL High 70-100 [facility] Comment on above: Order Comment: Reaso n for Exam Chronic kidney disease, stage III (moderate);Disorders of fl Result Comment: [facility] Glucose Reference Range is dependent on time and content of last meal. Glucose of more than 200 mg/dL in a nonstressed, ambulatory subject supports the diagnosis of Diabetes Mellitus. ADA recommended reference range Performed By: #### U FERNANDO, RENAL, MG, [id number] #### [facility] [address] [place] [address] [place] Phosphate [Mass/Vol] 4.1 mg/dL Normal 2.5-4.5 [facility] Comment on above: Order Comment: Reaso n for Exam Chronic kidney disease, stage III (moderate);Disorders of fl Performed By: #### U FERNANDO, RENAL, MG, [id number] #### [facility] [address] [place] [id number] [place] Potassium [Moles/Vol] 4.0 mmol/L Normal 3.5-5.1 [facility] Comment on above: Order Comment: Reaso n for Exam Chronic kidney disease, stage III (moderate);Disorders of fl Performed By: #### U FERNANDO, RENAL, MG, [id number] #### [facility] [address] [place] [id number] [facility] Sodium [Moles/Vol] 142 mmol/L Normal 136-145 [facility] Comment on above: Order Comment: Reaso n for Exam Chronic kidney disease, stage III (moderate);Disorders of fl Performed By: #### U FERNANDO, RENAL, MG, [id number] #### [facility] [address] Urea nitrogen [Mass/Vol] 46 mg/dL High 12-24 [facility] Comment on above: Order Comment: Reaso n for Exam Chronic kidney disease, stage III (moderate);Disorders of fl Performed By: #### U FERNANDO, RENAL, MG, [id number] #### [facility] [address] Serum or plasma anion gap de terminationOrdered By: Anila Jasmine on 04-30-2023 Anion gap [Moles/Vol] 12.5 mmol/L 6.0-15.0 [facility] Sodium [Moles/volume] in Ser um or PlasmaOrdered By: Anila Jasmine on 04-30-2023 Sodium [Moles/Vol] 142 mmol/L 136-145 [facility] Specific gravity Auto test s trip (U) [Rel density]Ordered By: Anila Sellersr on 04-30-2023 Specific gravity (U) [Rel density] 1.010 1.001-1.030 [facility] Squamous epithelial cells de tection in urine sediment by light microscopyOrdered By: Anila Sellersr on 04-30-2023 Epithelial cells.squamous LM Ql (Urine sed) 0-1 [HPF] 0-2 [facility] Urate [Mass/volume] in Serum or PlasmaOrdered By: Anila Jasmine on 04-30-2023 Urate [Mass/Vol] 5.8 mg/dL 2.3-6.6 [facility] Urea nitrogen [Mass/volume] in Serum or PlasmaOrdered By: Anila Jasmine on 04-30-2023 Urea nitrogen [Mass/Vol] 46 mg/dL 12-24 [facility] Uric Acidon 04-30-2023 Urate [Mass/Vol] 5.8 mg/dL Normal 2.3-6.6 [facility] Comment on above: Order Comment: Reaso n for Exam Chronic kidney disease, stage III (moderate);Disorders of fl Performed By: #### U FERNANDO, RENAL, MG, [id number] #### [facility] [address] Urine bacteria detection by automated methodOrdered By: Anila Granados on 04-30-2023 Bacteria Auto Ql (U) None seen None Seen [facility] Urine clarity by refractomet ry automatedOrdered By: Anila Granados on 04-30-2023 Clarity Refractometry automated (U) Clear Clear [facility] Urine glucose measurement by automated test strip (mass/volume)Ordered By: Anila Granados on 04-30-2023 Glucose Auto test strip (U) [Mass/Vol] Normal mg/dL Normal [facility] Urine hemoglobin detection b y automated test stripOrdered By: Anila Granados on 04-30-2023 Hemoglobin Auto test strip Ql (U) Negative Negative [facility] Urine leukocyte esterase det ection by automated test stripOrdered By: Anila Granados on 04-30-2023 Leukocyte esterase Auto test strip Ql (U) 1+ Negative [facility] Urine protein/creatinine rat ioOrdered By: Anila Granados on 04-30-2023 Protein/Creatinine (U) [Ratio] 118 mg/g{Cre} 0-200 [facility] Urobilinogen Auto test strip (U) [Mass/Vol]Ordered By: Anial Granados on 04-30-2023 Urobilinogen (U) [Mass/Vol] Normal mg/dL Normal [facility] Vitamin D 25 Hydroxy Totalon 04-30-2023 Vitamin D 25 Hydroxy Total 68.6 ng/mL Normal 30-100 [facility] Comment on above: Order Comment: Reaso n for Exam Chronic kidney disease, stage III (moderate);Disorders of fl Result Comment: JOANNE MIN D STATUS 25(OH)VITAMIN D RANGE (ng/mL) Deficient <20 Insufficient 20 to <30 Sufficient 30 to 100 Reference: Amilcar MF,Milo PENA, Adrián TELLEZ, et al. Evaluation,treatment, and prevention of vitamin D deficiency; an Endocrine Society clinical practice guideline. JCEM. 2010; 96(7):1911-30. PERFORMED BY: [place] [address] PATHOLOGIST GENERAL EDUCATION INSTRUCTOR MEERA GRIFFITHS M.D. Performed By: #### U FERNANDO, RENAL, MG, [id number] #### [address] Vitamin D+Metabolites [Mass/ volume] in Serum or PlasmaOrdered By: Anila Granados on 04-30-2023 Vitamin D+Metabolites [Mass/Vol] 68.6 ng/mL 30-100 [facility] Comment on above: VITAMIN D STATUS 25( [place])VITAMIN D RANGE (ng/mL) Deficient <20 Insufficient 20 to <30Sufficient 30 to 100Reference: Amilcar MF,Milo NC, Adrián TELLEZ, et al. Evaluation,treatment, and prevention of vitamin D deficiency; an Endocrine Society clinical practice guideline. JCEM. 2010; 96(7):1911-30. pH Auto test strip (U)Ordere d By: Anila Granados on 04-30-2023 pH (U) 6.5 [pH] 5.0-9.0 [facility] XR knee LT 2Von 09-23-2022 XR knee LT 2V [facility] Main [place] [address] [place] [address] XRay Report Signed Patient: Amadou Suarez MR#: [id number] : 1970 Acct:[id number] Age/Sex: 52 / F ADM Date: 09/23/22 Loc: [facility] [place]: Type: [facility] Attending Dr: Arthur Moy MD Copies to: Arthur Moy MD Ordering Provider: Arthur Moy MD Date of Service: 09/23/22 XR/XR knee LT 2V: Acute pain of left knee LEFT KNEE - 2 views COMPARISON: None CLINICAL DATA: Left knee pain for the past few months. No injury. Standing AP and lateral views were obtained. There is osteopenia. No acute fracture or dislocation is seen. There is narrowing of the medial tibiofemoral joint compartment with near bone to bone contact. There is also narrowing of the patellofemoral joint. There is tricompartment marginal spurring. There is no knee effusion or focal soft tissue swelling. There is a linear radiopaque foreign body projecting within the subcutaneous soft tissues at the proximal anterolateral delcid. It measures just over a centimeter in length. Atherosclerotic plaque is noted at vessels along the posterior leg. XR/XR knee LT 2V IMPRESSION: MODERATE TO SEVERE DEGENERATIVE CHANGES. RADIOPAQUE FOREIGN BODY AT THE PROXIMAL DELCID. Impression dictated by: Kim Coleman M.D.09/23/2022 5:10 PM Dictation Location: RADIO-PC-10 Transcribed By: [facility] 09/23/22 171 Dictated By: Kim Coleman MD 09/23/22 170 Signed By: 09/23/221709 [facility] XR cerv spine AP/LAT/FLX/EXT on 08-19-2022 XR cerv spine AP/LAT/FLX/EXT [facility] [place] [address] XRay Report Signed Patient: Amadou Suarez MR#: [id number] : 1970 Acct:[id number] Age/Sex: 52 / F ADM Date: 08/19/22 Loc[place] [facility] [place] Room: Type: [facility] Attending Dr: Arthur Moy MD Copies to: Arthur Moy MD Ordering Provider: Arthur Moy MD Date of Service: 08/19/22 XR/XR cerv spine AP/LAT/FLX/EXT: M54.2 AP with lateral neutral, flexion and extension views of cervical spinecervical spine HISTORY: RIGHT hand imaging. COMPARISON: None BONY ALIGNMENT: No hypermobility identified with flexion and extension views. FRACTURE: None DISC DEGENERATION: C5-6 and C6-7 moderate spondylosis present. FACETS: Unremarkable FORAMEN: Not assessed DENS: Intact CRANIOCERVICAL JUNCTION: Unremarkable SOFT TISSUES: Unremarkable XR/XR cerv spine AP/LAT/FLX/EXT IMPRESSION: No hypermobility. Lower cervical degeneration. Impression dictated by: Mihai Jackson M.D.08/19/2022 4:48 PM Dictation Location: RADIO--01 Transcribed By: [facility] 08/19/22 1648 Dictated By: Mihai Jackson DO 08/19/221646 Signed By: 08/19/221647 [facility] XR shoulder RT min 2V*on XR shoulder RT min 2V* [facility] [facility] [place] [address] [place], [place] [id number] XRay Report Signed Patient: Amadou Suarez MR#: [id number] : 1970 Acct:[id number] Age/Sex: 52 / F ADM Date: 08/19/22 Loc: [facility] [place] Room: Type: [facility] Attending Dr: Arthur Moy MD Copies to: Arthur Moy MD Ordering Provider: Arthur Moy MD Date of Service: 08/19/22 XR/XR shoulder RT min 2V*: Acute pain of right shoulder L4 views of the RIGHTshoulder HISTORY:RIGHT hand pain. Swelling involving the 4th and 5th digits. COMPARISON:None ACUTE FINDINGS:None DEGENERATIVE CHANGE:Unremarkable SOFT TISSUE FINDINGS:Unremarkabl e JOINT EFFUSION:None POSTOP CHANGES:2 screws are present in the humeral head. No abnormality. BONY MINERALIZATION:Adequ ate XR/XR shoulder RT min 2V* IMPRESSION:Unremarka ble postsurgical changes. Impression dictated by: Mihai Jackson M.D.08/19/2022 4:46 PM Dictation Location: [place] [address] Transcribed By: [facility] 08/19/221645 Dictated By: Mihai Jackson DO 08/19/221643 Signed By: 08/19/221645 [facility] PTH INTACTon 08-14-2022 PTH, Intact 12 pg/mL Critically low 15-65 [facility] Comment on above: Performed By: #### I NSULIN #### [facility] [address] [address] [address] Jose Mckinney HEMOGRAM AND PLATELon 2022 Hematocrit (Bld) [Volume fraction] 38.7 % Normal 36.0-48.0 [facility] Comment on above: Performed By: #### U RTPCR #### [facility] [address] [address] [address] Jose Mckinney Hemoglobin (Bld) [Mass/Vol] 12.7 g/dL Normal 12.0-16.0 [facility] Comment on above: Performed By: #### U RTPCR #### [facility] [address] [place] [address] Dr. Jose Mckinney MCH (RBC) [Entitic mass] 30.5 pg Normal 26.7-34.0 [facility] Comment on above: Performed By: #### U RTPCR #### [facility] [address] [place] [address] Dr. Jose Mckinney MCHC (RBC) [Mass/Vol] 32.8 g/dL Normal 29.9-35.2 [facility] Comment on above: Performed By: #### U RTPCR #### [facility] [address] [place] [address] Dr. Jose Mckinney MCV (RBC) [Entitic vol] 92.8 fL Normal 81.0-99.0 [facility] Comment on above: Performed By: #### U RTPCR #### [facility] [address] [place] [address] Dr. Jose Mckinney PLT 223 103/ul Normal 150-450 [facility] Comment on above: Performed By: #### U RTPCR #### [facility] [address] [place] [address] Dr. Jose Mckinney RBC 4.17 106/ul Critically low 4.20-5.40 [facility] Comment on above: Performed By: #### U RTPCR #### [facility] [address] [place] [address] Dr. Jose Mckinney WBC 7.0 103/ul Normal 4.0-11.0 [facility] Comment on above: Performed By: #### U RTPCR #### [facility] [address] [place] [address] Dr. Jose Mckinney MAGNESIUMon 08-13-2022 Magnesium [Mass/Vol] 1.9 mg/dL Normal 1.8-2.4 [facility] Comment on above: Performed By: #### U FERNANDO, RENAL, MG #### [facility] [address] [address] [address] Jose Mckinney RENAL FUNCTION PANELon 08-13 Albumin [Mass/Vol] 3.6 g/dL Normal 3.4-5.0 [facility] Comment on above: Performed By: #### U FERNANDO, RENAL, MG #### [facility] [address] [address] [address] Jose Mckinney Calcium [Mass/Vol] 9.3 mg/dL Normal 8.5-10.1 [facility] Comment on above: Performed By: #### U FERNANDO, RENAL, MG #### [facility] [address] [address] [address] Jose Mckinney Chloride [Moles/Vol] 104 mmol/L Normal 98-107 [facility] Comment on above: Performed By: #### U FERNANDO, RENAL, MG #### [facility] [address] [place] [address] Dr. Jose Mckinney CO2 [Moles/Vol] 28.3 mmol/L Normal 21.0-32.0 [facility] Comment on above: Performed By: #### U FERNANDO, RENAL, MG #### [facility] [address] [address] [address] Jose Mckinney Creatinine [Mass/Vol] 1.34 mg/dL Critically high 0.55-1.02 [facility] Comment on above: Performed By: #### U FERNANDO, RENAL, MG #### [facility] [address] [address] [address] Jose Mckinney EGFR-AF ITALIAN 50 mL/min/1.73m2 Critically low >=60 [facility] Comment on above: Performed By: #### U FERNANDO, RENAL, MG #### [facility] [address] [address] [address] Jose Mckinney EGFR-NON AF ITALIAN 41 mL/min/1.73m2 Critically low >=60 [facility] Comment on above: Performed By: #### U FERNANDO, RENAL, MG #### [facility] [address] [address] [address] Jose Mckinney Glucose [Mass/Vol] 226 mg/dL Critically high 74-[address] [facility] Comment on above: Performed By: #### U FERNANDO, RENAL, MG #### [facility] [address] [address] [address] Jose Mckinney Phosphate [Mass/Vol] 4.6 mg/dL Normal 2.6-4.7 [facility] Comment on above: Performed By: #### U FERNANDO, RENAL, MG #### [facility] [address] [place] [address] Dr. Jose Mckinney Potassium [Moles/Vol] 4.4 mmol/L Normal 3.5-5.1 [facility] Comment on above: Performed By: #### U FERNANDO, RENAL, MG #### [facility] [address] [place] [address] Dr. Jose Mckinney Sodium [Moles/Vol] 138 mmol/L Normal 136-145 [facility] Comment on above: Performed By: #### U FERNANDO, RENAL, MG #### [facility] [address] [place] [address] Dr. Jose Mckinney Urea nitrogen [Mass/Vol] 27.0 mg/dL Critically high 7.0-18 .0 [facility] Comment on above: Performed By: #### U FERNANDO, RENAL, MG #### [facility] [address] [place] [address] Dr. Jose Mckinney UA RANDOM W/MICROSCOPICon BACTERIA NONE SEEN Normal NONE SEEN [facility] Comment on above: Performed By: #### U AMIC #### [facility] [address] [place] [address] Dr. Jose Mckinney Bilirubin Ql (U) Negative Normal NEGATIVE [facility] Comment on above: Performed By: #### U AMIC #### [facility] [address] [place] [address] Dr. Jose Mckinney CAST NONE SEEN Normal NONE SEEN [facility] Comment on above: Performed By: #### U AMIC #### [facility] [address] [place] [address] Dr. Jose Mckinney Clarity (U) CLEAR Normal CLEAR [facility] Comment on above: Performed By: #### U AMIC #### [facility] [address] [address] [address] Jose Mckinney Color (U) YELLOW Normal YELLOW [facility] Comment on above: Performed By: #### U AMIC #### [facility] [address] [address] [address] Jose Mckinney Crystals LM Nom (Urine sed) NONE SEEN Normal NONE SEEN [facility] Comment on above: Performed By: #### U AMIC #### [facility] [address] [address] [address] Jose Mckinney Epithelial cells LM Ql (Urine sed) NONE SEEN Normal NONE SEEN /RARE [facility] Comment on above: Performed By: #### U AMIC #### [facility] [address] [place] [address] Dr. Jose Mckinney Glucose Ql (U) 250 mg/dl Abnormal NEGATIVE [facility] Comment on above: Performed By: #### U AMIC #### [facility] [address] [address] [address] Jose Mckinney Hemoglobin Ql (U) Negative Normal NEGATIVE [facility] Comment on above: Performed By: #### U AMIC #### [facility] [address] [place] [address] Dr. Jose Mckinney Ketones Ql (U) Negative Normal NEGATIVE [facility] Comment on above: Performed By: #### U AMIC #### [facility] [address] [address] [address] Jose Mckinney LEUKOCYTES Negative Normal NEGATIVE [facility] Comment on above: Performed By: #### U AMIC #### [facility] [address] [address] [address] Jose Mckinney MUCOUS NONE SEEN Normal NONE SEEN [facility] Comment on above: Performed By: #### U AMIC #### [facility] [address] [place] [address] Dr. Jose Mckinney Nitrite Ql (U) Negative Normal NEGATIVE [facility] Comment on above: Performed By: #### U AMIC #### [facility] [address] [address] [address] Jose Mckinney pH (U) 6.5 [pH] Normal 5-9 [facility] Comment on above: Performed By: #### U AMIC #### [facility] [address] [place] [address] Dr. Jose Mckinney RBC 0-2 Normal 0-2 [facility] Comment on above: Performed By: #### U AMIC #### [facility] [address] [place] [address] Dr. Jose Mckinney SPEC GRAVITY 1.020 Normal 1.005-<=1.02 5 [facility] Comment on above: Performed By: #### U AMIC #### [facility] [address] [place] [address] Dr. Jose Mckinney UA PROTEIN Negative Normal NEGATIVE/ TRACE [facility] Comment on above: Performed By: #### U AMIC #### [facility] [address] [place] [address] Dr. Jose Mckinney Urobilinogen Qn (U) 0.2 {Betsy'U}/dL Normal 0.2 - 1. 0 [facility] Comment on above: Performed By: #### U AMIC #### [facility] [address] [place] [address] Dr. Jose Mckinney WBC NONE SEEN Normal NONE SEEN [facility] Comment on above: Performed By: #### U AMIC #### [facility] [address] [place] [address] Dr. Jose Mckinney URIC ACID SERUMon 08-13-2022 Urate [Mass/Vol] 4.1 mg/dL Normal 2.6-6.0 [facility] Comment on above: Performed By: #### U FERNANDO, RENAL, MG #### [facility] [address] [place] [address] Dr. Jose Mckinney URINE T PROTEIN CREAT RATIOo n 08-13-2022 Protein (U) [Mass/Vol] 13.5 mg/dL Critically high <=12.0 [facility] Comment on above: Performed By: #### U RTPCR #### [facility] [address] [address] [address] Jose Mckinney UR PROT CREAT RAT 0.16 Normal [facility] Comment on above: Performed By: #### U RTPCR #### [facility] [address] [place] [address] Dr. Jsoe Mckinney URINE CREAT 83.00 mg/dL Normal 20.00-300.00 [facility] Comment on above: Performed By: #### U RTPCR #### [facility] [address] [place] [address] Dr. Jose Mckinney VITAMIN D 25 OHon 08-13-2022 VIT D 25-OH 54.4 ng/mL Normal [facility] Comment on above: Performed By: #### C BC #### [facility] [address] [place] [address] Dr. Jose Mckinney VIT D RANGES SEE BELOW Normal [facility] Comment on above: Result Comment: <20 ng/mL Vit D deficient 20 - <30 ng/mL Vit D insufficient 30 - 100 ng/mL Vit D sufficient >100 ng/mL Potential Toxicity Performed By: #### C BC #### [facility] [address] [place] [address] Dr. Jose Mckinney Covid-19 PCR ([facility])on 05-02 SARS-CoV-2 (COVID-19) RNA CHILO+probe Ql (Unsp spec) Not detected Normal NOT DETECTED [facility] Comment on above: Result Comment: This test is not yet approved or cleared by the [place] FDA. When there are no FDA-approved or cleared tests available, and other criteria are met, FDA can make tests available under an emergency access mechanism called an Emergency Use Authorization (EUA). The EUA for this test is supported by the Rose Grading Supervisor of Health and Human Service's (HHS's) declaration that circumstances exist to justify the emergency use of in vitro diagnostics for the detection and/or diagnosis of the virus that causes COVID-19. This EUA will remain in effect (meaning this test can be used) for the duration of the COVID-19 declaration justifying emergency of IVDs, unless it is terminated or revoked by FDA (after which the test may no longer be used). When diagnostic testing is negative, the possibility of a false negative should be considered in the context of a patient's recent exposures and the presence of clinical signs and symptoms consistent with SARS-CoV-2. Performed By: #### C BC #### [facility] [address] [place] [address] Dr. Jose Mckinney INFLUENZA A AND B AGon 05-13 INFLUANE SEE BELOW Normal [facility] Comment on above: Result Comment: Nega tive for Flu A protein angiten. Infection due to Flu A cannot be ruled out. Flu A angiten in the sample may be below the detection limit of the test. Performed By: #### C BC #### [facility] [address] [place] [address] Dr. Jose Mckinney INFLUBNEGH SEE BELOW Normal [facility] Comment on above: Result Comment: Nega tive for Flu B protein antigen. Infection due to Flu B cannot be ruled out. Flu B antigen in the sample may be below the detection limit of the test. Performed By: #### C BC #### [facility] [address] [place] [address] Dr. Jose Mckinney INFLUENZA A AG Negative Normal NEGATIVE SEE COMMENT [facility] Comment on above: Performed By: #### C BC #### [facility] [address] [place] [address] Dr. Jose Mckinney INFLUENZA B AG Negative Normal NEGATIVE SEE COMMENT [facility] Comment on above: Performed By: #### C BC #### [facility] [address] [place] [address] Dr. Jose Mckinney INTERNAL CONTROLS Within Normal Limits Normal Wi thin Normal Limits [facility] Comment on above: Performed By: #### C BC #### [facility] [address] [place] [address] Dr. Jose Mckinney INSULINon 02-07-2022 Insulin 191.0 uIU/mL Critically high 2.6-24.9 [facility] Comment on above: Performed By: #### I NSULIN #### [facility] [address] [place] [address] Dr. Jose Mckinney PTH INTACTon 02-07-2022 PTH, Intact 13 pg/mL Critically low 15-65 [facility] Comment on above: Performed By: #### C BC #### [facility] [address] [address] [address] Jose Mckinney T4, T3U, FTI [facility] 02-07 Free Thyroxine Index 2.3 Normal 1.2-4.9 [facility] Comment on above: Performed By: #### C BC #### [facility] [address] [address] [address] Jose Mckinney T3 Uptake 23 % Critically low 24-39 [facility] Comment on above: Performed By: #### C BC #### [facility] [address] [address] [address] Jose Mckinney T4 [Mass/Vol] 10.2 ug/dL Normal 4.5-12.0 [facility] Comment on above: Performed By: #### C BC #### [facility] [address] [address] [address] Jose Mckinney VIT D 25-OH [facility] 2021 Vitamin D, 25-Hydroxy 43.3 ng/mL Normal 30.0-100.0 [facility] Comment on above: Result Comment: Joanne min D deficiency has been defined by the [place] of Medicine and an Endocrine Society practice guideline as a level of serum 25-OH vitamin D less than 20 ng/mL (1,2). The Endocrine Society went on to further define vitamin D insufficiency as a level between 21 and 29 ng/mL (2). 1. IOM ([place] of Medicine). 2010. Dietary reference intakes for calcium and D. [place]: The National Academies Press. 2. Amilcar MF, Milo [place], Adrián TELLEZ, et al. Evaluation, treatment, and prevention of vitamin D deficiency: an Endocrine Society clinical practice guideline. JCEM. 2010; 96(7):1911-30. Performed By: #### C BC #### [facility] [address] [address] [address] Jose Mckinney CBC AUTO DIFFon 02-06-2022 BASO # 0.0 103/ul Normal 0.0-0.1 [facility] Comment on above: Performed By: #### U RTPCR #### [facility] [address] [address] [address] Jose Mckinney Basophils/100 WBC (Bld) 0.5 % Normal 0.2-2.0 [facility] Comment on above: Performed By: #### U RTPCR #### [facility] [address] [place] [address] Dr. Jose Mckinney EO # 0.5 103/ul Normal 0.0-0.7 [facility] Comment on above: Performed By: #### U RTPCR #### [facility] [address] [place] [address] Dr. Jose Mckinney Eosinophils/100 WBC (Bld) 8.0 % Critically high 0.9-7.0 [facility] Comment on above: Performed By: #### U RTPCR #### [facility] [address] [place] [address] Dr. Jose Mckinney Erythrocyte distribution width (RBC) [Ratio] 13.6 % Normal 11.0-15.0 [facility] Comment on above: Performed By: #### U RTPCR #### [facility] [address] [place] [address] Dr. Jose Mckinney Hematocrit (Bld) [Volume fraction] 42.5 % Normal 36.0-48.0 [facility] Comment on above: Performed By: #### U RTPCR #### [facility] [address] [place] [address] Dr. Jose Mckinney Hemoglobin (Bld) [Mass/Vol] 13.8 g/dL Normal 12.0-16.0 [facility] Comment on above: Performed By: #### U RTPCR #### [facility] [address] [place] [address] Dr. Jose Mckinney IG # 0.02 10e3/ul Normal 0.00-0.03 [facility] Comment on above: Performed By: #### U RTPCR #### [facility] [address] [place] [address] Dr. Jose Mckinney IG % 0.3 % Normal 0.0-0.5 [facility] Comment on above: Performed By: #### U RTPCR #### [facility] [address] [place] [address] Dr. Jose Mckinney LYMPH # 1.5 103/ul Normal 1.2-3.8 [facility] Comment on above: Performed By: #### U RTPCR #### [facility] [address] [place] [address] Dr. Jose Mckinney Lymphocytes/100 WBC (Bld) 25.3 % Normal 20.5-60.0 [facility] Comment on above: Performed By: #### U RTPCR #### [facility] [address] [place] [address] Dr. Jose Mckinney MANUAL DIFF REQ NO Normal [facility] Comment on above: Performed By: #### U RTPCR #### [facility] [address] [place] [address] Dr. Jose Mckinney MCH (RBC) [Entitic mass] 30.1 pg Normal 26.7-34.0 [facility] Comment on above: Performed By: #### U RTPCR #### [facility] [address] [place] [address] Dr. Jose Mckinney MCHC (RBC) [Mass/Vol] 32.5 g/dL Normal 29.9-35.2 [facility] Comment on above: Performed By: #### U RTPCR #### [facility] [address] [place] [address] Dr. Jose Mckinney MCV (RBC) [Entitic vol] 92.6 fL Normal 81.0-99.0 [facility] Comment on above: Performed By: #### U RTPCR #### [facility] [address] [place] [address] Dr. Jose Mckinney MONO # 0.4 103/ul Normal 0.3-0.8 [facility] Comment on above: Performed By: #### U RTPCR #### [facility] [address] [place] [address] Dr. Jose Mckinney Monocytes/100 WBC (Bld) 6.4 % Normal 1.7-12.0 [facility] Comment on above: Performed By: #### U RTPCR #### [facility] [address] [place] [address] Dr. Jose Mckinney NEUT # 3.6 103/ul Normal 1.4-6.5 [facility] Comment on above: Performed By: #### U RTPCR #### [facility] [address] [place] [address] Dr. Jose Mckinney Neutrophils/100 WBC (Bld) 59.5 % Normal 43.0-75.0 [facility] Comment on above: Performed By: #### U RTPCR #### [facility] [address] [place] [address] Dr. Jose Mckinney Platelet mean volume (Bld) [Entitic vol] 11.8 fL Normal 9.5-13.5 [facility] Comment on above: Performed By: #### U RTPCR #### [facility] [address] [place] [address] Dr. Jose Mckinney PLT 175 103/ul Normal 150-450 [facility] Comment on above: Performed By: #### U RTPCR #### [facility] [address] [place] [address] Dr. Jose Mckinney RBC 4.59 106/ul Normal 4.20-5.40 [facility] Comment on above: Performed By: #### U RTPCR #### [facility] [address] [place] [address] Dr. Jose Mckinney WBC 6.1 103/ul Normal 4.0-11.0 [facility] Comment on above: Performed By: #### U RTPCR #### [facility] [address] [place] [address] Dr. Jose Mckinney GLYCOHEMOGLOBIN A1Con 2021 ADA RECOMMENDATION SEE BELOW Normal [facility] Comment on above: Result Comment: ADA RECOMMENDED LIMIT 4.0 - 6.0 ADA THERAPEUTIC TARGET < 7.0 ACTION SUGGESTED > 7.0 Performed By: #### U RTPCR #### [facility] [address] [place] [address] Dr. Jose Mckinney Glucose [Mass/Vol] 209 mg/dL Normal [facility] Comment on above: Performed By: #### U RTPCR #### [facility] [address] [address] [address] Jose Mckinney HbA1c (Bld) [Mass fraction] 8.9 % Critically high 4.5-6.2 [facility] Comment on above: Performed By: #### U RTPCR #### [facility] [address] [address] [address] Jose Mckinney IRONon 02-06-2022 Iron [Mass/Vol] 55.0 ug/dL Normal 50.0-170.0 [facility] Comment on above: Performed By: #### C BC #### [facility] [address] [place] [address] Dr. Jose Mckinney LIPID PROFILEon 02-06-2022 CHOL-HDL RATIO NORM SEE BELOW Normal [facility] Comment on above: Result Comment: 3.3 - 4.4 LOW RISK 4.4 - 7.1 AVERAGE RISK 7.1 - 11.0 MODERATE RISK >11.0 HIGH RISK Performed By: #### T SH, CMP, LIPID #### [facility] [address] [address] [address] Jose Mckinney Cholesterol [Mass/Vol] 215 mg/dL Critically high <=200 [facility] Comment on above: Performed By: #### T SH, CMP, LIPID #### [facility] [address] [address] [address] Jose Mckinney Cholesterol in HDL [Mass/Vol] 32 mg/dL Critically low 40-60 [facility] Comment on above: Performed By: #### T SH, CMP, LIPID #### [facility] [address] [address] [address] Jose Mckinney Cholesterol in LDL [Mass/Vol] 118.4 mg/dL Normal [facility] Comment on above: Performed By: #### T SH, CMP, LIPID #### [facility] [address] [place] [address] Dr. Jose Mckinney Cholesterol.total/Choles terol in HDL [Mass ratio] 6.7 {ratio} Normal [facility] Comment on above: Performed By: #### T SH, CMP, LIPID #### [facility] [address] [address] [address] Jose Mckinney HDL NORMAL > or = 60 mg/dl - LOW CARDIOVASCULAR RISK <40 mg/dl - HIGH CARDIOVASCULAR RISK Normal [facility] Comment on above: Performed By: #### T SH, CMP, LIPID #### [facility] [address] [address] [address] Jose Mckinney LDL CALC NORMAL SEE BELOW Normal [facility] Comment on above: Result Comment: <100 mg/dl OPTIMAL 100 - 129 mg/dl NEAR OR ABOVE OPTIMAL 130 - 159 mg/dl BORDERLINE HIGH 160 - 189 mg/dl HIGH >190 mg/dl VERY HIGH Performed By: #### T SH, CMP, LIPID #### [facility] [address] [place] [address] Dr. Jose Mckinney Triglyceride [Mass/Vol] 323 mg/dL Critically high <=150 [facility] Comment on above: Performed By: #### T SH, CMP, LIPID #### [facility] [address] [address] [address] Jose Mckinney VLDL CALC 64.6 mg/dL Normal [facility] Comment on above: Performed By: #### T SH, CMP, LIPID #### [facility] [address] [address] [address] Jose Mckinney MAGNESIUMon 02-06-2022 Magnesium [Mass/Vol] 1.8 mg/dL Normal 1.8-2.4 [facility] Comment on above: Performed By: #### U RTPCR #### [facility] [address] [address] [address] Jose Mckinney PHOSPHORUSon 02-06-2022 Phosphate [Mass/Vol] 4.1 mg/dL Normal 2.6-4.7 [facility] Comment on above: Performed By: #### U RTPCR #### [facility] [address] [place] [address] Dr. Jose Mckinney PROF 14(COMP METB)on 022 Albumin [Mass/Vol] 3.6 g/dL Normal 3.4-5.0 [facility] Comment on above: Performed By: #### T SH, CMP, LIPID #### [facility] [address] [address] [address] Jose Mckinney Albumin/Globulin [Mass ratio] 0.9 {ratio} Normal [facility] Comment on above: Performed By: #### T SH, CMP, LIPID #### [facility] [address] [address] [address] Jose Mckinney ALP [Catalytic activity/Vol] 70 U/L Normal 46-116 [facility] Comment on above: Performed By: #### T SH, CMP, LIPID #### [facility] [address] [address] [address] Jose Mckinney ALT [Catalytic activity/Vol] 38 U/L Normal 14-59 [facility] Comment on above: Performed By: #### T SH, CMP, LIPID #### [facility] [address] [address] [address] Jose Mckinney Anion gap [Moles/Vol] 11.9 mmol/L Normal [facility] Comment on above: Performed By: #### T SH, CMP, LIPID #### [facility] [address] [place] [address] Dr. Jose Mckinney AST [Catalytic activity/Vol] 19 U/L Normal 15-37 [facility] Comment on above: Performed By: #### T SH, CMP, LIPID #### [facility] [address] [address] [address] Jose Mckinney Bilirubin [Mass/Vol] 0.3 mg/dL Normal 0.2-1.0 [facility] Comment on above: Performed By: #### T SH, CMP, LIPID #### [facility] [address] [place] [address] Dr. Jose Mckinney Calcium [Mass/Vol] 9.3 mg/dL Normal 8.5-10.1 [facility] Comment on above: Performed By: #### T SH, CMP, LIPID #### [facility] [address] [address] [address] Jose Mckinney Chloride [Moles/Vol] 104 mmol/L Normal 98-107 [facility] Comment on above: Performed By: #### T SH, CMP, LIPID #### [facility] [address] [address] [address] Jose Mckinney CO2 [Moles/Vol] 29.1 mmol/L Normal 21.0-32.0 [facility] Comment on above: Performed By: #### T SH, CMP, LIPID #### [facility] [address] [place] [address] Dr. Jose Mckinney Creatinine [Mass/Vol] 1.31 mg/dL Critically high 0.55-1.02 [facility] Comment on above: Performed By: #### T SH, CMP, LIPID #### [facility] [address] [place] [address] Dr. Jose Mckinney EGFR-AF ITALIAN 51 mL/min/1.73m2 Critically low >=60 [facility] Comment on above: Performed By: #### T SH, CMP, LIPID #### [facility] [address] [place] [address] Dr. Jose Mckinney EGFR-NON AF ITALIAN 42 mL/min/1.73m2 Critically low >=60 [facility] Comment on above: Performed By: #### T SH, CMP, LIPID #### [facility] [address] [place] [address] Dr. Jose Mckinney Globulin (S) [Mass/Vol] 3.9 g/dL Normal [facility] Comment on above: Performed By: #### T SH, CMP, LIPID #### [facility] [address] [place] [address] Dr. Jose Mckinney Glucose [Mass/Vol] 185 mg/dL Critically high 74-106 [facility] Comment on above: Performed By: #### T SH, CMP, LIPID #### [facility] [address] [place] [address] Dr. Jose Mckinney Potassium [Moles/Vol] 4.0 mmol/L Normal 3.5-5.1 [facility] Comment on above: Performed By: #### T SH, CMP, LIPID #### [facility] [address] [address] [address] Jose Mckinney Protein [Mass/Vol] 7.5 g/dL Normal 6.4-8.2 [facility] Comment on above: Performed By: #### T SH, CMP, LIPID #### [facility] [address] [place] [address] Dr. Jose Mckinney Sodium [Moles/Vol] 141 mmol/L Normal 136-145 [facility] Comment on above: Performed By: #### T SH, CMP, LIPID #### [facility] [address] [place] [address] Dr. Jose Mckinney Urea nitrogen [Mass/Vol] 20.0 mg/dL Critically high 7.0-18 .0 [facility] Comment on above: Performed By: #### T SH, CMP, LIPID #### [facility] [address] [place] [address] Dr. Jose Mckinney Urea nitrogen/Creatinine [Mass ratio] 15.3 mg/mg Normal [facility] Comment on above: Performed By: #### T SH, CMP, LIPID #### [facility] [address] [place] [address] Dr. Jose Mckinney TSHon 02-06-2022 TSH 2.011 uIU/mL Normal 0.358-3.740 [facility] Comment on above: Performed By: #### T SH, CMP, LIPID #### [facility] [address] [place] [address] Dr. Jose Mckinney UA RANDOM W/MICROSCOPICon BACTERIA NONE SEEN Normal NONE SEEN [facility] Comment on above: Performed By: #### U RTPCR #### [facility] [address] [place] [address] Dr. Jose Mckinney Bilirubin Ql (U) Negative Normal NEGATIVE [facility] Comment on above: Performed By: #### U RTPCR #### [facility] [address] [place] [address] Dr. Jose Mckinney CAST NONE SEEN Normal NONE SEEN [facility] Comment on above: Performed By: #### U RTPCR #### [facility] [address] [place] [address] Dr. Jose Mckinney Clarity (U) CLEAR Normal CLEAR [facility] Comment on above: Performed By: #### U RTPCR #### [facility] [address] [place] [address] Dr. Jose Mckinney Color (U) LT. YELLOW Normal YELLOW [facility] Comment on above: Performed By: #### U RTPCR #### [facility] [address] [place] [address] Dr. Jose Mckinney Crystals LM Nom (Urine sed) NONE SEEN Normal NONE SEEN [facility] Comment on above: Performed By: #### U RTPCR #### [facility] [address] [place] [address] Dr. Jose Mckinney Epithelial cells LM Ql (Urine sed) RARE Normal NONE SEEN /RARE [facility] Comment on above: Performed By: #### U RTPCR #### [facility] [address] [place] [address] Dr. Jose Mckinney Glucose Ql (U) Negative Normal NEGATIVE [facility] Comment on above: Performed By: #### U RTPCR #### [facility] [address] [place] [address] Dr. Jose Mckinney Hemoglobin Ql (U) Negative Normal NEGATIVE [facility] Comment on above: Performed By: #### U RTPCR #### [facility] [address] [place] [address] Dr. Jose Mckinney Ketones Ql (U) Negative Normal NEGATIVE [facility] Comment on above: Performed By: #### U RTPCR #### [facility] [address] [place] [address] Dr. Jose Mckinney LEUKOCYTES Negative Normal NEGATIVE [facility] Comment on above: Performed By: #### U RTPCR #### [facility] [address] [place] [address] Dr. Jose Mckinney MUCOUS NONE SEEN Normal NONE SEEN [facility] Comment on above: Performed By: #### U RTPCR #### [facility] [address] [place] [address] Dr. Jose Mckinney Nitrite Ql (U) Negative Normal NEGATIVE [facility] Comment on above: Performed By: #### U RTPCR #### [facility] [address] [place] [address] Dr. Jose Mckinney pH (U) 6.0 [pH] Normal 5-9 [facility] Comment on above: Performed By: #### U RTPCR #### [facility] [address] [place] [address] Dr. Jose Mckinney RBC 0-2 Normal 0-2 [facility] Comment on above: Performed By: #### U RTPCR #### [facility] [address] [place] [address] Dr. Jose Mckinney SPEC GRAVITY 1.010 Normal 1.005-<=1.02 5 [facility] Comment on above: Performed By: #### U RTPCR #### [facility] [address] [place] [address] Dr. Jose Mckinney UA PROTEIN Negative Normal NEGATIVE/ TRACE [facility] Comment on above: Performed By: #### U RTPCR #### [facility] [address] [place] [address] Dr. Jose Mckinney Urobilinogen Qn (U) 0.2 {Betsy'U}/dL Normal 0.2 - 1. 0 [facility] Comment on above: Performed By: #### U RTPCR #### [facility] [address] [place] [address] Dr. Jose Mckinney WBC 0-2 Abnormal NONE SEEN [facility] Comment on above: Performed By: #### U RTPCR #### [facility] [address] [place] [address] Dr. Jose Mckinney URIC ACID SERUMon 02-06-2022 Urate [Mass/Vol] 6.7 mg/dL Critically high 2.6-6.0 [facility] Comment on above: Performed By: #### U RTPCR #### [facility] [address] [place] [address] Dr. Jose Mckinney URINE T PROTEIN CREAT RATIOo n 02-06-2022 Protein (U) [Mass/Vol] 6.0 mg/dL Normal <=12.0 [facility] Comment on above: Performed By: #### I NSULIN #### [facility] [address] [place] [address] Dr. Jose Mckinney UR PROT CREAT RAT 0.19 Normal [facility] Comment on above: Performed By: #### I NSULIN #### [facility] [address] [place] [address] Dr. Jose Mckinney URINE CREAT 32.07 mg/dL Normal 20.00-300.00 [facility] Comment on above: Performed By: #### I NSULIN #### [facility] [address] [place] [address] Dr. Jose Mckinney BNPon 09-04-2021 Natriuretic peptide B (Bld) [Mass/Vol] 1096.0 pg/mL Critically high <=900.0 [facility] Comment on above: Performed By: #### U RTPCR #### [facility] [address] [place] [address] Dr. Jose Mckinney CBC AUTO DIFFon 09-04-2021 BASO # 0.0 103/ul Normal 0.0-0.1 [facility] Comment on above: Performed By: #### C BC #### [facility] [address] [place] [address] Dr. Jose Mckinney Basophils/100 WBC (Bld) 0.3 % Normal 0.2-2.0 [facility] Comment on above: Performed By: #### C BC #### [facility] [address] [place] [address] Dr. Jose Mckinney EO # 0.3 103/ul Normal 0.0-0.7 [facility] Comment on above: Performed By: #### C BC #### [facility] [address] [place] [address] Dr. Jose Mckinney Eosinophils/100 WBC (Bld) 2.1 % Normal 0.9-7.0 [facility] Comment on above: Performed By: #### C BC #### [facility] [address] [place] [address] Dr. Jose Mckinney Erythrocyte distribution width (RBC) [Ratio] 13.7 % Normal 11.0-15.0 [facility] Comment on above: Performed By: #### C BC #### [facility] [address] [place] [address] Dr. Jose Mckinney Hematocrit (Bld) [Volume fraction] 40.1 % Normal 36.0-48.0 [facility] Comment on above: Performed By: #### C BC #### [facility] [address] [place] [address] Dr. Jose Mckinney Hemoglobin (Bld) [Mass/Vol] 13.5 g/dL Normal 12.0-16.0 [facility] Comment on above: Performed By: #### C BC #### [facility] [address] [place] [address] Dr. Jose Mckinney IG # 0.48 10e3/ul Critically high 0.00-0.03 [facility] Comment on above: Performed By: #### C BC #### [facility] [address] [place] [address] Dr. Jose Mckinney IG % 3.7 % Critically high 0.0-0.5 [facility] Comment on above: Performed By: #### C BC #### [facility] [address] [place] [address] Dr. Jose Mckinney LYMPH # 4.2 103/ul Critically high 1.2-3.8 [facility] Comment on above: Performed By: #### C BC #### [facility] [address] [place] [address] Dr. Jose Mckinney Lymphocytes/100 WBC (Bld) 32.5 % Normal 20.5-60.0 [facility] Comment on above: Performed By: #### C BC #### [facility] [address] [place] [address] Dr. Jose Mckinney MANUAL DIFF REQ NO Normal [facility] Comment on above: Performed By: #### C BC #### [facility] [address] [place] [address] Dr. Jose Mckinney MCH (RBC) [Entitic mass] 30.7 pg Normal 26.7-34.0 [facility] Comment on above: Performed By: #### C BC #### [facility] [address] [place] [address] Dr. Jose Mckinney MCHC (RBC) [Mass/Vol] 33.7 g/dL Normal 29.9-35.2 [facility] Comment on above: Performed By: #### C BC #### [facility] [address] [place] [address] Dr. Jose Mckinney MCV (RBC) [Entitic vol] 91.1 fL Normal 81.0-99.0 [facility] Comment on above: Performed By: #### C BC #### [facility] [address] [place] [address] Dr. Jose Mckinney MONO # 0.9 103/ul Critically high 0.3-0.8 [facility] Comment on above: Performed By: #### C BC #### [facility] [address] [place] [address] Dr. Jose Mckinney Monocytes/100 WBC (Bld) 7.3 % Normal 1.7-12.0 [facility] Comment on above: Performed By: #### C BC #### [facility] [address] [place] [address] Dr. Jose Mckinney NEUT # 6.9 103/ul Critically high 1.4-6.5 [facility] Comment on above: Performed By: #### C BC #### [facility] [address] [place] [address] Dr. Jose Mckinney Neutrophils/100 WBC (Bld) 54.1 % Normal 43.0-75.0 [facility] Comment on above: Performed By: #### C BC #### [facility] [address] [place] [address] Dr. Jose Mckinney Platelet mean volume (Bld) [Entitic vol] 11.7 fL Normal 9.5-13.5 [facility] Comment on above: Performed By: #### C BC #### [facility] [address] [place] [address] Dr. Jose Mckinney PLT 216 103/ul Normal 150-450 [facility] Comment on above: Performed By: #### C BC #### [facility] [address] [place] [address] Dr. Jose Mckinney RBC 4.40 106/ul Normal 4.20-5.40 [facility] Comment on above: Performed By: #### C BC #### [facility] [address] [place] [address] Dr. Jose Mckinney WBC 12.8 103/ul Critically high 4.0-11.0 [facility] Comment on above: Performed By: #### C BC #### [facility] [address] [place] [address] Dr. Jose Mckinney Covid-19 PCR ([facility])on SARS-CoV-2 (COVID-19) RNA CHILO+probe Ql (Unsp spec) Not detected Normal NOT DETECTED [facility] Comment on above: Result Comment: This test is not yet approved or cleared by the [place] FDA. When there are no FDA-approved or cleared tests available, and other criteria are met, FDA can make tests available under an emergency access mechanism called an Emergency Use Authorization (EUA). The EUA for this test is supported by the Rose Grading Supervisor of Health and Human Service's (HHS's) declaration that circumstances exist to justify the emergency use of in vitro diagnostics for the detection and/or diagnosis of the virus that causes COVID-19. This EUA will remain in effect (meaning this test can be used) for the duration of the COVID-19 declaration justifying emergency of IVDs, unless it is terminated or revoked by FDA (after which the test may no longer be used). When diagnostic testing is negative, the possibility of a false negative should be considered in the context of a patient's recent exposures and the presence of clinical signs and symptoms consistent with SARS-CoV-2. Performed By: #### I NSULIN #### [facility] [address] [place] [address] Dr. Jose Mckinney D-DIMERon 09-04-2021 D-DIMER 0.33 mg/L FEU Normal 0.19-0.50 [facility] Comment on above: Performed By: #### I NSULIN #### [facility] [address] [place] [address] Dr. Jose Mckinney D-DIMER COMMENTS SEE BELOW Normal [facility] Comment on above: Result Comment: Incr eases in D-Dimer concentration observed with thromboembolic events can be variable due to localization, size, and age of the thrombus. Therefore, a thromboembolic event cannot be diagnosed with certainty on the basis of the reference range. D-Dimers may also be elevated for a variety of disorders including: advanced age, , coronary disease, cancer, liver disease, infection, inflammation, hematoma, DIC, trauma, post-surgery, diabetes, thrombolytic or anticoagulant therapy, stress, and generalized hospitalization. Performed By: #### I NSULIN #### [facility] [address] [place] [address] Dr. Jose Mckinney PROF 14(COMP METB)on 022 Albumin [Mass/Vol] 3.4 g/dL Normal 3.4-5.0 [facility] Comment on above: Performed By: #### U RTPCR #### [facility] [address] [place] [address] Dr. Jose Mckinney Albumin/Globulin [Mass ratio] 1.0 {ratio} Normal [facility] Comment on above: Performed By: #### U RTPCR #### [facility] [address] [place] [address] Dr. Jose Mckinney ALP [Catalytic activity/Vol] 92 U/L Normal 46-116 [facility] Comment on above: Performed By: #### U RTPCR #### [facility] [address] [place] [address] Dr. Jose Mckinney ALT [Catalytic activity/Vol] 113 U/L Critically high 14-59 [facility] Comment on above: Performed By: #### U RTPCR #### [facility] [address] [place] [address] Dr. Jose Mckinney Anion gap [Moles/Vol] 14.0 mmol/L Normal [facility] Comment on above: Performed By: #### U RTPCR #### [facility] [address] [address] [address] Jose Mckinney AST [Catalytic activity/Vol] 50 U/L Critically high 15-37 [facility] Comment on above: Performed By: #### U RTPCR #### [facility] [address] [address] [address] Jose Mckineny Bilirubin [Mass/Vol] 0.4 mg/dL Normal 0.2-1.3 [facility] Comment on above: Performed By: #### U RTPCR #### [facility] [address] [address] [address] Jose Mckinney Calcium [Mass/Vol] 9.0 mg/dL Normal 8.5-10.1 [facility] Comment on above: Performed By: #### U RTPCR #### [facility] [address] [place] [address] Dr. Jose Mckinney Chloride [Moles/Vol] 100 mmol/L Normal 98-107 [facility] Comment on above: Performed By: #### U RTPCR #### [facility] [address] [place] [address] Dr. Jose Mckinney CO2 [Moles/Vol] 25.4 mmol/L Normal 22.0-30.0 [facility] Comment on above: Performed By: #### U RTPCR #### [facility] [address] [place] [address] Dr. Jose Mckinney Creatinine [Mass/Vol] 1.61 mg/dL Critically high 0.52-1.04 [facility] Comment on above: Performed By: #### U RTPCR #### [facility] [address] [place] [address] Dr. Jose Mckinney EGFR-AF ITALIAN 41 mL/min/1.73m2 Critically low >=60 [facility] Comment on above: Performed By: #### U RTPCR #### [facility] [address] [address] [address] Jose Mckinney EGFR-NON AF ITALIAN 33 mL/min/1.73m2 Critically low >=60 [facility] Comment on above: Performed By: #### U RTPCR #### [facility] [address] [address] [address] Jose Mckinney Globulin (S) [Mass/Vol] 3.4 g/dL Normal T [facility] Comment on above: Performed By: #### U RTPCR #### [facility] [address] [address] [address] Jose Mckinney Glucose [Mass/Vol] 57 mg/dL Critically low 74-106 [facility] Comment on above: Performed By: #### U RTPCR #### [facility] [address] [address] [address] Joes Mckinney Potassium [Moles/Vol] 3.4 mmol/L Normal 3.4-5.0 [facility] Comment on above: Performed By: #### U RTPCR #### [facility] [address] [place] [address] Dr. Jose Mckinney Protein [Mass/Vol] 6.8 g/dL Normal 6.1-8.2 [facility] Comment on above: Performed By: #### U RTPCR #### [facility] [address] [place] [address] Dr. Jose Mckinney Sodium [Moles/Vol] 136 mmol/L Critically low 137-145 [facility] Comment on above: Performed By: #### U RTPCR #### [facility] [address] [place] [address] Dr. Jose Mckinney Urea nitrogen [Mass/Vol] 51.0 mg/dL Critically high 7.0-18 .0 [facility] Comment on above: Performed By: #### U RTPCR #### [facility] [address] [place] [address] Dr. Jose Mckinney Urea nitrogen/Creatinine [Mass ratio] 31.7 mg/mg Normal [facility] Comment on above: Performed By: #### U RTPCR #### [facility] [address] [place] [address] Dr. Jose Mckinney TROPONIN, HIGH SENSITIVITYon 09-04-2021 HSTROP 16.1 pg/mL Normal 4.0-35.5 [facility] Comment on above: Result Comment: CUT- OFF POINTS HAVE BEEN ESTABLISHED BASED ON THE FOURTH UNIVERSAL DEFINITIONS OF MYOCARDIAL INFARCTION. THE UPPER REFERENCE LIMIT (URL) OF TROPONIN, DEFINED THE 99TH PERCENTILE OF cTnI DISTRIBUTION IN A REFERENCE POPULATION, HAS BEEN CONFIRMED THE DECISION THRESHOLD FOR [place] DIAGNOSIS. Performed By: #### U RTPCR #### [facility] [address] [address] [address] Jose Mckinney XR CHEST 1 Von 09-04-2021 XR CHEST 1 V EXAM: XR CHEST 1 V HISTORY: Increased shortness of breath COMPARISON: Chest radiograph 08/29/2021, 02/01/2021 TECHNIQUE: Frontal chest radiograph FINDINGS: Lungs symmetrically and adequately inflated. Increased density of the lower thorax, likely technique related. No focal consolidation or evidence of pulmonary edema. No pneumothorax or pleural effusion. Prominent cardiomediastinal silhouette, unchanged. No acute osseous findings. Limited evaluation of the upper abdomen, due to technique. Postsurgical changes of the right shoulder. IMPRESSION: Prominent cardiomediastinal silhouette, which may be exaggerated by technique. No focal airspace disease. Electronically authenticated by: WIN KOHLI Date: 2021-09-04 20:53 Normal [facility] XR CHEST 2 Von 08-29-2021 XR CHEST 2 V EXAMINATION: XR CHEST 2 V HISTORY: Acute severe exacerbation of severe persistent asthma COMPARISON: XR chest 02/01/2021 FINDINGS: LUNGS: Hyperexpanded lungs. No appreciable infiltrates or mass. VASCULATURE: No increased pulmonary vasculature. PLEURA: No pneumothorax, effusion, or pleural thickening. CARDIAC: No cardiomegaly or cardiac silhouette abnormality. MEDIASTINUM: No visible mass or adenopathy. BONES: Prior right rotator cuff repair. OTHER: Negative. IMPRESSION: 1. No acute cardiopulmonary process. 2. Hyperexpanded lungs; exaggerated inspiratory effort versus mild COPD. Electronically authenticated by: WIN HALL Date: 2021-08-29 14:43 Normal [facility] Cardiovascular Lab Reporton 11-10-2020 Cardiovascular Lab Report [facility] Patient Name: [facility] Authsudheer MR #: [id number] Department of Physician: Huy Howell M.D. Division of Service Date: 11/09/2020 Cardiology Birthdate: 1970 Adult Cardiovascular Room #: [facility] [address] [place], [place] [address] Cardiovascular Laboratory Report FINAL IMPRESSION: 1. Mild coronary artery disease. 2. Normal global left ventricular systolic function by noninvasive imaging. 3. Moderate systemic hypertension. RECOMMENDATIONS: 1. The patient may proceed to upcoming surgery at acceptable (low) risk with no further cardiovascular testing needed; recommend strict heart rate and blood pressure control and avoidance of major fluid shifts. 2. Aggressive cardiovascular risk factor modification. 3. Aspirin, moderate high-intensity statin therapy, +/- beta jennifer and angiotensin-converti ng enzyme inhibitor should be considered given mild coronary disease. 4. Follow up with Dr. Sea Chatterjee as scheduled. 5. Follow up with [facility] Cardiology on an as-needed basis. PROCEDURES: Ultrasound-guided access to the left radial artery, bilateral selective coronary angiography. METHODS: After risks, benefits, and alternatives were explained, written informed consent was obtained. The patient was prepped and draped in usual sterile fashion over the left wrist and left groin. Using 1% lidocaine solution, local infiltration anesthesia was achieved over the left wrist. Using a modified Seldinger technique, a micropuncture kit and on the ultrasound guidance, access to the left radial artery was obtained. A 6-Maori glide sheath was inserted without difficulty. Bilateral selective coronary angiography was performed using JR4 and JL4 catheters. After reviewing the images, it was elected to conclude the procedure. All catheters removed. The radial sheath was removed with application of a TR band per protocol to achieve optimal hemostasis. Overall, the patient tolerated the procedure well. There were no overt complications. She was to be transferred to the holding area in stable condition. FINDINGS: Hemodynamics. AO: 139/63. LEFT VENTRICULOGRAPHY: This was not performed. Ejection fraction is normal by noninvasive imaging. CORONARY ARTERIES: Left main coronary artery: This arises from the left coronary cusp. It bifurcates into the left anterior descending and left circumflex coronary arteries. It is free of significant stenosis. Left anterior descending coronary artery: This shows luminal irregularities and mild caliber reduction in the proximal to midportion of the vessel adjacent to a small diagonal branch. It is a wrap-around vessel. There is mid to distal vessel tapering. Left circumflex coronary artery: This is angiographically nonobstructive. Right coronary artery: This is a dominant vessel giving rise to the posterior descending and small posterolateral branches. It is angiographically nonobstructive. INDICATIONS: Preoperative evaluation, abnormal stress test. Electronically Signed by: Rebeca Valadez M.D. 11/10/2020 05:10 P Rebeca Valadez M.D. Date Dict: 11/09/2020/12:57 P/Rebeca Valadez M.D. Date Trans: 11/10/2020 07:37 A/josefa [id number] cc: Sea Chatterjee M.D. [address], [facility] [address] [facility] Vital Signs Date Time Vital Sign Value Performing Clinician Facility 04-30-2023 11:00-0500 Body height 160.02 cm Anila Jasmine Other [facility] Other 04-30-2023 11:00-0500 Body mass index (BMI) [Ratio] 51.54 kg/m2 Anila Jasmine Other [facility] Other 04-30-2023 11:00-0500 Body temperature 96.4 [degF] Anila Jasmine Other [facility] Other 04-30-2023 11:00-0500 Body weight 132 kg Anila Jasmine Other [facility] Other 04-30-2023 11:00-0500 Diastolic blood pressure 84 mm[Hg] Anila Jasmine Other [facility] Other 04-30-2023 11:00-0500 Respiratory rate 18 /min Anila Jasmine Other [facility] Other 04-30-2023 11:00-0500 SaO2% (BldA) [Mass fraction] 96 % Anila Jasmine Other [facility] Other 04-30-2023 11:00-0500 Systolic blood pressure 133 mm[Hg] Anila Jasmnie Other [facility] Other 11-11-2022 14:45-0400 Body height 160.02 cm Misha Anahi Other [facility] Other 11-11-2022 14:45-0400 Body mass index (BMI) [Ratio] 49.24 kg/m2 Misha Anahi Other [facility] Other 11-11-2022 14:45-0400 Body weight 126.1 kg Misha Anahi Other [facility] Other 10-07-2022 14:30-0400 Body height 160.02 cm Misha Anahi Other [facility] Other 10-07-2022 14:30-0400 Body mass index (BMI) [Ratio] 50.41 kg/m2 Misha Anahi Other [facility] Other 10-07-2022 14:30-0400 Body weight 129.09 kg Misha Anahi Other [facility] Other 08-15-2022 15:20-0400 Body height 160.02 cm Anila Jasmine Other [facility] Other 08-15-2022 15:20-0400 Body mass index (BMI) [Ratio] 48.35 kg/m2 Anila Jasmine Other [facility] Other 08-15-2022 15:20-0400 Body temperature 97.4 [degF] Anila Jasmine Other [facility] Other 08-15-2022 15:20-0400 Body weight 123.83 kg Anila Jasmine Other [facility] Other 08-15-2022 15:20-0400 Diastolic blood pressure 70 mm[Hg] Anila Jasmine Other [facility] Other 08-15-2022 15:20-0400 Respiratory rate 18 /min Anila Jasmine Other [facility] Other 08-15-2022 15:20-0400 SaO2% (BldA) [Mass fraction] 99 % Anila Jasmine Other [facility] Other 08-15-2022 15:20-0400 Systolic blood pressure 132 mm[Hg] Anila Jasmine Other [facility] Other 02-11-2022 15:40-0400 Body height 160.02 cm Anila Jasmine Other [facility] Other 02-11-2022 15:40-0400 Body mass index (BMI) [Ratio] 50.37 kg/m2 Anila Jasmine Other [facility] Other 02-11-2022 15:40-0400 Body temperature 96.6 [degF] Anila Jasmine Other [facility] Other 02-11-2022 15:40-0400 Body weight 129 kg Anila Jasmine Other [facility] Other 02-11-2022 15:40-0400 Diastolic blood pressure 54 mm[Hg] Anila Jasmine Other [facility] Other 02-11-2022 15:40-0400 Respiratory rate 18 /min Anila Jasmine Other [facility] Other 02-11-2022 15:40-0400 SaO2% (BldA) [Mass fraction] 96 % Anila Jasmine Other [facility] Other 02-11-2022 15:40-0400 Systolic blood pressure 131 mm[Hg] Anila Jasmine Other [facility] Other 10-22-2021 15:30-0400 Body height 160.02 cm Arthur Olexa Other [facility] Other 10-22-2021 15:30-0400 Body mass index (BMI) [Ratio] 49.95 kg/m2 Arthur Olexa Other [facility] Other 10-22-2021 15:30-0400 Body weight 127.92 kg Arthur Olexa Other [facility] Other 08-02-2021 15:40-0500 Body height 160.02 cm Anila Jasmine Other [facility] Other 08-02-2021 15:40-0500 Body mass index (BMI) [Ratio] 50.66 kg/m2 Anila Jasmine Other [facility] Other 08-02-2021 15:40-0500 Body weight 129.73 kg Anila Jasmine Other [facility] Other 08-02-2021 15:40-0500 Diastolic blood pressure 80 mm[Hg] Anila Jasmine Other [facility] Other 08-02-2021 15:40-0500 Respiratory rate 18 /min Anila Jasmine Other [facility] Other 08-02-2021 15:40-0500 SaO2% (BldA) [Mass fraction] 96 % Anila Jasmine Other [facility] Other 08-02-2021 15:40-0500 Systolic blood pressure 132 mm[Hg] Anila Jasmine Other [facility] Other Encounters Encounter Date Encounter Type Care Provider Facility Start: 04-30-2023 Office outpatient vi sit 15 minutes Anila Jasmine [facility] Start: 04-30-2023 End: 04-30-2023 ambulatory [employer] Ann Fournier Work Phone: [facility] [facility] Other Start: 04-30-2023 End: 04-30-2023 Patient encounter procedure [employer]-C Ann Fournier Work Phone: [facility] [place] Work Phone: Start: 04-17-2023 End: 04-17-2023 ambulatory ENEDINA ROMERO Not Available Start: 11-11-2022 (Proc F/U) Procedure F/U Misha Christian [facility] Start: 11-11-2022 End: 11-11-2022 ambulatory Misha Christian Other [facility] Other Start: 10-24-2022 End: 10-24-2022 ambulatory Arthur Moy Other [facility] Other Start: 10-24-2022 Telephone encounter Arthur Moy [facility] Start: 10-07-2022 End: 10-07-2022 ambulatory Misha Christian Other [facility] Other Start: 10-07-2022 Office outpatient vi sit 15 minutes Misha Christian [facility] Start: 09-23-2022 End: 09-23-2022 ambulatory Arthur Moy Facility:[facility] Start: 09-23-2022 End: 09-23-2022 ambulatory MD Arthur Moy Work Phone: [facility] Work Phone: Start: 09-23-2022 End: 09-23-2022 Patient encounter procedure MD Arthur Myo Work Phone: [facility] Start: 08-19-2022 End: 08-19-2022 ambulatory Arthur Moy Facility:[facility] Start: 08-19-2022 End: 08-19-2022 Patient encounter procedure MD Arthur Moy Work Phone: [facility] Start: 08-19-2022 End: 08-19-2022 ambulatory MD Arthur Moy Work Phone: [facility] Work Phone: Start: 08-19-2022 Office outpatient ne w 30 minutes Arthur Moy [facility] Start: 08-15-2022 End: 08-15-2022 ambulatory Anila Jasmine Other [facility] Other Start: 08-15-2022 Office outpatient vi sit 25 minutes Anila Jasmine [facility] Start: 08-13-2022 End: 08-14-2022 ambulatory ANILA JASMINE Facility: Start: 07-08-2022 End: 07-09-2022 ambulatory Win Hernandezroya Facility:[facility] Start: 05-13-2022 End: 05-13-2022 ambulatory ANNJOSELUIS FOURNIER Facility:[facility] Start: 02-11-2022 End: 02-11-2022 ambulatory Anila Jasmine Other [facility] Other Start: 02-11-2022 Office outpatient vi sit 25 minutes Anila Jasmine [facility] Start: 02-06-2022 End: 02-07-2022 ambulatory ANN FOURNIER Facility:[facility] Start: 10-22-2021 End: 10-22-2021 ambulatory Arthur Moy Other [facility] Other Start: 10-22-2021 Office outpatient ne w 30 minutes Arthur Moy [facility] Start: 09-07-2021 End: 09-07-2021 ambulatory ANN FOURNIER Facility:[facility] Start: 09-04-2021 End: 09-05-[address] AZEEM FITZGERALD Facility:[facility] Start: 08-29-2021 End: 08-30-2021 ambulatory DENYSBENSON RICH . Facility:[facility] Start: 08-02-2021 End: 08-02-2021 ambulatory Anila Jasmine Other [facility] [facility] Other Start: 08-02-2021 Office outpatient vi sit 15 minutes Anila Jasmine [facility] Start: 11-09-2020 End: 11-10-2020 ambulatory SEA HOY Facility:[facility] Start: 10-31-2020 End: 11-01-2020 ambulatory SEA HOY Facility:[facility] Start: 11-06-2017 Ambulatory ANTONIO BRIAN Facility :[id number] Start: 11-06-2017 Ambulatory Facility:[id number] Procedures Date Procedure Procedure Detail Performing Clinician Start: 09-23-2022 X-ray of left knee MD Frantz Moy Work Phone: Start: 08-19-2022 Plain X-ray of right shoulder MD Arthur Moy Work Phone: Start: 08-19-2022 X-ray of cervical spine MD Arthur Moy Work Phone: Replacement of total knee joint [employer] Other Payers Date Payer Category Payer Self-pay [id number] 2008 Unknown [id number] 1970 Unknown [id number] 2.16.8 [id number] 1970 Unknown [id number] 2.16.8 [id number] 1970 Unknown [id number] 2.16.84 [id number] 1970 Unknown [id number] 2.16.84 [id number] 1968 Unknown [id number] 2.16.84 [id number] 1968 Unknown [id number] 2.16.84 [id number] 1968 Unknown [id number] 2.16.84 [id number] 1968 Unknown [id number] 2.16.84 [id number] 1968 Unknown [id number] 2.16.84 [id number] 1968 Unknown [id number] 2.16.84 [id number] 1970 Unknown [id number] 2.16.840 .[id number] 1961 Medicaid [id number] 1961 Unknown [id number] Unknown [id number] 2.16.8 [id number] Unknown [id number] 2.16.8 [id number] Unknown [id number] 2.16.8 [id number] Social History Date Type Detail Facility Unknown if ever smoked [facility] [facility] Other Sex Assigned At Sex Assigned At Bir th [employer] Other Start: 1970 Sex Assigned At Female F [facility] Medical Equipment Procedure Code Equipment Code Equipment Origin al Text Equipment Identifier Dates Start: 11-05-2016 Clinical Notes 08-02-2021 to 04-30-2023 Note Date & Type Note Facility 04-30-2023 Evaluation note Encounter Date Diagnosis Assessment Notes Apr, Disorders of fluid, electrolyte, and acid-base balance (ICD-10 - E87.8) She appears to be euvolemic on exam. Potassium and Bicarbonate are within the normal limit. Continue lasix 40 mg BID. Apr, Chronic kidney disease, stage III (moderate) (ICD-10 - N18.30) She has CKD 3 due to HTN and DM. Her b/l serum Creatinine is 1.3-1.5 mg/dl. I have discussed with her the importance of good DM and HTN control to slow down the progression of disease. Her renal US showed unremarkable kidneys in 2011. Apr, Hypertensive chronic kidney disease with stage 1 through stage 4 chronic kidney disease, or unspecified chronic kidney disease (ICD-10 - I12.9) Blood pressure is well controlled on current regimen. I will continue same medications. Apr, Vitamin D deficiency (ICD-10 - E55.9) Continue current medications Apr, Diabetes mellitus with chronic kidney disease (ICD-10 - E11.22) She has uncontrolled DM and currently follows with Dr. Moon. She currently does not take PAULETTE or ARB. Apr, Hypoparathyroidism (ICD-10 - E20.9) She has hypoparathyroidism due to the need to be etiology. Her calcium, phosphorus and vitamin D are within the goal. [facility] Other [id number] Evaluation note* Encounter Date Diagnosis Assessment Notes Treatment Notes Treatment Clinical Notes September, Arthritis of left knee (ICD-10 - M17.12) Amadou presents with left knee DJD. H/o R TKA. At this juncture we have discussed the findings and diagnosis as well as personally reviewed appropriate imaging and performed interpretation of related testing and examination with the patient in office today. Prior medical notes from Dr. Myo and history have been reviewed. Today we have discussed degenerative joint disease of the knee and its treatment. Imaging was discussed and explained to the patient. We discussed recommended conservative therapies including physical therapy, anti-inflammatory medications, and weight loss strategies. We also discussed other treatment options including cortisone injections, Visco supplementation injections which are options for treatment. I have laid out the course of knee DJD including the end-stage treatment of total joint arthroplasty. The patient recognizes and understands our options and goals and we will move forward with our treatment. At this time we will submit for viscosupplementation approval and attempt these injections. We discussed that she has modifiable risk factors prior to undergoing total knee arthroplasty. She does have advanced degenerative changes. Her weight needs to come down and her glucose control needs to improve in order to optimize her for total knee arthroplasty. She verbalized understanding of this. I will see her back for TELLEZ injections The patient has been involved in our cooperative treatment plan and agrees to move forward with treatment at this time. The patient is suffering from degenerative arthritis involving the knee. We discussed the conservative treatment options which can be beneficial in relieving pain, including gentle non-impact motion exercise and non-steroidal anti-inflammatory medication. We discussed the use of occasional cortisone injections that can provide pain relief as well as hyaluronan lubricant injection. We will avoid NSAIDs due to kidney disease, and steroid due to diabetes. We will apply for TELLEZ injections at this time. Patient continues to experience joint pain and we will now apply for hyaluronic acid injections. Patient has failed other conservative treatments including topical medications, acetaminophen, home therapy exercises for a trial of 3 months or longer. Discussed potential for surgical treatment in the future, advised patient work on weight loss and continuing to decrease her A1C in the meantime. September, Morbid (severe) obesity due to excess calories (ICD-10 - E66.01) September, Body mass index [BMI] 50.0-59.9, adult (ICD-10 - Z68.43) Today we discussed obesity. I have informed the patient the amount of stress it applies to our musculoskeletal system as well as the axial and appendicular skeleton. They understand how this can affect joint function as well as joint pain. We discussed the range of BMI and the patient's BMI of 50. We discussed weight loss strategies through increased physical activity as well as decrease caloric intake. We offered referral for bariatric services. Our discussion is limited to 5 minutes. September, Other See orders for this visit as documented in the electronic medical record. [facility] Other 03-20-2023 Evaluation note* Encounter Date Diagnosis Assessment Notes Treatment Notes Treatment Clinical Notes Jul, Itch (ICD-10 - L29.9) Jul, Anesthesia of skin (ICD-10 - R20.0) Jul, Paresthesia of skin (ICD-10 - R20.2) Based on patient's history, discussed potential for many causes including cervical disc disease, carpal tunnel and cubital tunnel. Patient declines cortisone injection to the carpal tunnel. Provided order for physical therapy for the cervical spine. If no improvement we will refer patient to neurology for EMG and neurology evaluation. Jul, Type 2 diabetes mellitus without complication, unspecified whether terminal supervisor insulin use (ICD-10 - E11.9) Jul, Cervical spine pain (ICD-10 - M54.2) [facility] Other 03-16-2023 Evaluation note* Encounter Date Diagnosis Assessment Notes Treatment Notes Treatment Clinical Notes Jul, Disorders of fluid, electrolyte, and acid-base balance (ICD-10 - E87.8) She appears to be euvolemic on exam. Potassium and Bicarbonate are within the normal limit. Continue lasix 40 mg BID. Jul, Chronic kidney disease, stage III (moderate) (ICD-10 - N18.30) She has CKD 3 due to HTN and DM. Her b/l serum Creatinine is 1.1-1.4 mg/dl. I have discussed with her the importance of good DM and HTN control to slow down the progression of disease. Her renal US showed unremarkable kidneys in 2011. I have advised her to contact the PCP office to see if the case mgr can help her with the subsidized housing. Jul, Hypertensive chronic kidney disease with stage 1 through stage 4 chronic kidney disease, or unspecified chronic kidney disease (ICD-10 - I12.9) Blood pressure is well controlled on current regimen. I will continue same medications. Jul, Vitamin D deficiency (ICD-10 - E55.9) Continue current medications Jul, Diabetes mellitus wi th chronic kidney disease (ICD-10 - E11.22) She has uncontrolled DM and currently follows with Dr. Moon. She currently does not take PAULETTE or ARB. Jul, Hypoparathyroidism (ICD-10 - E20.9) She has hypoparathyroidism due to the need to be etiology. Her calcium, phosphorus and vitamin D are within the goal. [facility] Other 02-07-2023 NotePROCEDURE: XR HIP LT 2 3V W PELVIS HISTORY: Pain of left hip joint COMPARISON: None. FINDINGS: BONES:Narrowing of the hip joint spaces. Degenerative osteophytes along the rim of acetabulum bilaterally. Separate ossification at superior margin of the greater trochanter favoring sequela of remote injury. SOFT TISSUES:No visible soft tissue swelling. EFFUSION:None visible. OTHER: Negative. IMPRESSION: 1. Moderate degenerative joint disease of the hips bilaterally. 2. No acute abnormality. Electronically authenticated by: WIN HALL Date: 2022-07-09 07:42[facility]09[facility]12[facility] Evaluation note* Encounter Date Diagnosis Assessment Notes Treatment Notes Treatment Clinical Notes Jan, Disorders of fluid, electrolyte, and acid-base balance (ICD-10 - E87.8) She appears to be euvolemic on exam. Potassium and Bicarbonate are within the normal limit. Continue lasix 40 mg BID. Jan, Chronic kidney disease, stage III (moderate) (ICD-10 - N18.30) She has CKD 3 due to HTN and DM. Her b/l serum Creatinine is 1.1-1.4 mg/dl. I have discussed with her the importance of good DM and HTN control to slow down the progression of disease. Her renal US showed unremarkable kidneys in 2011. I have advised her to contact the PCP office to see if the case mgr can help her with the subsidized housing. Jan, Hypertensive chronic kidney disease with stage 1 through stage 4 chronic kidney disease, or unspecified chronic kidney disease (ICD-10 - I12.9) Blood pressure is well controlled on current regimen. I will continue same medications. Jan, Vitamin D deficiency (ICD-10 - E55.9) Continue current medications Jan, Diabetes mellitus with chronic kidney disease (ICD-10 - E11.22) She has uncontrolled DM and currently follows with Dr. Moon. She currently does not take PAULETTE or ARB. [employer] Other 05-23-2022 Evaluation note* Encounter Date Diagnosis Assessment Notes Treatment Notes Treatment Clinical Notes September, Acute pain of left shoulder (ICD-10 - M25.512) September, Left shoulder tendonitis (ICD-10 - M77.8) This appears to be pain secondary to subacromial bursitis / rotator cuff tendonitis. We discussed and demonstrated gentle motion exercise and rotator cuff strengthening exercise. Discussed the use of non-steroidal anti-inflammatory medication. Patient is unable to have a cortisone injection today due to her diabetic condition. Formal therapy order provided. If no improvement, may consider MRI to assess for rotator cuff tear. [employer] Other 03-03-2022 Evaluation note* Encounter Date Diagnosis Assessment Notes Treatment Notes Treatment Clinical Notes Jul, Disorders of fluid, electrolyte, and acid-base balance (ICD-10 - E87.8) She appears to be euvolemic on exam. Potassium and Bicarbonate are within the normal limit. Continue lasix 40 mg BID. Jul, Chronic kidney disease, stage III (moderate) (ICD-10 - N18.30) She has CKD 3 due to HTN and DM. Her b/l serum Creatinine is 1.1-1.4 mg/dl. I have discussed with her the importance of good DM and HTN control to slow down the progression of disease. Her renal US showed unremarkable kidneys in 2011Jul, Hypertensive chronic kidney disease with stage 1 through stage 4 chronic kidney disease, or unspecified chronic kidney disease (ICD-10 - I12.9) Blood pressure is well controlled on current regimen. I will continue same medications. Jul, Vitamin D deficiency (ICD-10 - E55.9) Continue current medications Jul, Diabetes mellitus with chronic kidney disease (ICD-10 - E11.22) She has uncontrolled DM and currently follows with Dr. Moon. She currently does not take PAULETTE or ARB. [employer] Other Evaluation noteNo assessment information available [facility] Work Phone: Evaluation noteNo InformationNort [employer] Other Evaluation noteNortZonder Other Hisvs[facility] general Narrative - Reported* Type Description Date Medical History SVT Medical History diabetes mellitus type 2 Medical History asthma Medical History uncontrolled DM type 2 Medical History GERD Medical History Morbid obesity Medical History SOB on exertion Medical History hypothyroidism Medical History arthritis Medical History kidney disease stage 3 Medical History nerve damage Medical History spinal degeneration Medical History IBS Medical History ASTHMA Medical History C-Diff Surgical History Procedure: Arthroscopy knee;Dis ease: 1999 Surgical History tonsillectomy 1971 Surgical History arthroscopic rt knee surgery x' s 3 Surgical History Procedure: Tonsillectomy;Diseas e: 1971 Surgical History cholecystectomy 2000 Surgical History Procedure: Rotator Cuff Repair; Disease: 2009 Surgical History arthroscopy rt x's 2 shoulder 2 002 Surgical History Procedure: Carpal tunnel releas e;Disease: 2000 Surgical History cardiac catheterization 2007 Surgical History Procedure: eye exam; Disease:Diabetes mellitus, type 2 2012 Surgical History Procedure:Cholecystectomy;Disea se: 2000 Surgical History shoulder surgery 2008 Surgical History appendectomy 2010 Surgical History Procedure:ativan, zo dayron, tylenol;Disease:right upper quad pain 2011 Surgical History bone spur 2011 Surgical History back surgery 2011 Surgical History herniated disk repair 2011 Surgical History right total knee (07/28/12) Surgical History injections to back Dr Lundberg 09/30 Surgical History carpel tunnel right 09/16 Surgical History Heart Cath 11/09/2020 Surgical History HYSTERECTOMY/ PNEUMONIA Hospitalization History SEE ABOVE SURGERY Hospitalization History Cellul[facility] 02/2020 [employer] Other [facility] Narrative - Reported* Type Description Date Medical History SVT Medical History diabetes mellitus type 2 Medical History asthma Medical History uncontrolled DM type 2 Medical History GERD Medical History Morbid obesity Medical History SOB on exertion Medical History hypothyroidism Medical History arthritis Medical History kidney disease stage 3 Medical History nerve damage Medical History spinal degeneration Medical History IBS Medical History ASTHMA Medical History C-Diff Medical History COVID 09/2021 Surgical History Procedure: Arthroscopy knee;Dis ease: 1999 Surgical History tonsillectomy 1972 Surgical History arthroscopic rt knee surgery x' s 3 1987,1999 Surgical History Procedure: Tonsillectomy;Diseas e: 1971 Surgical History cholecystectomy 2000 Surgical History Procedure: Rotator Cuff Repair; Disease: 2009 Surgical History arthroscopy rt x's 2 shoulder 2 002 Surgical History Procedure: Carpal tunnel releas e;Disease: 2000 Surgical History cardiac catheterization 2007 Surgical History Procedure: eye exam; Disease:Diabetes mellitus, type 2 2012 Surgical History Procedure:Cholecystectomy;Disea se: 2000 Surgical History shoulder surgery 2008 Surgical History appendectomy 2010 Surgical History Procedure:ativan, zo dayron, tylenol;Disease:right upper quad pain 2011 Surgical History bone spur 2011 Surgical History back surgery 2011 Surgical History herniated disk repair 2011 Surgical History right total knee (07/28/12) Surgical History injections to back Dr Lundberg 09/30 Surgical History carpel tunnel right 09/16 Surgical History Heart Cath 11/09/2020 Surgical History HYSTERECTOMY/ PNEUMONIA Hospitalization History SEE ABOVE SURGERY Hospitalization History Cellul[facility] 02/2020 [facility] [employer] Other History general [facility]ative - [facility] [employer] Other Summary Purpose Family History No Family History Records FoundNo Family History Records FoundNo Family History Records FoundNo Family History Records FoundNo Family History Records FoundNo Family History Records Found Advance Directives No Advanced Directives Records Found Advance Directive Response Recorded Date/ Time Advance Directives No November 13 8:11am Advance Directive Response Recorded Date/ Time Advance Directives No November 13 7:11am Chief Complaint and Reason for Visit Chief Complaint M54.2 R20.0 M25.562 Chief Complaint Chronic Kidney Disea se Additional Source Comments INFORMATION SOURCE (unrecogn ized section and content) DATE CREATED AUTHOR 11/18/2017 [facility] DATE CREATED AUTHOR AUTHOR'S ORGANIZ ATION 11/18/2017 [facility] DATE CREATED AUTHOR AUTHOR'S ORGANIZ ATION 11/16/[address] [facility] DATE CREATED AUTHOR AUTHOR'S ORGANIZ ATION 08/20/2022 [facility] DATE CREATED AUTHOR AUTHOR'S ORGANIZ ATION 04/19/2023 [facility] EPIC DATE CREATED AUTHOR AUTHOR'S PURNIMA ATDAYAN 05/02/2023 [facility] REASON FOR VISIT (unrecogniz ed section and content) CKDLeft Shoulder PainCKD and HTNCKD and HTNRight Shoulder PainLeft Knee PainMED ALLERGYCKD and Edema Care Teams (unrecognized sec tion and content) Team Status: Inactive Member Role Status Dates Arthur Moy MD Attending Provider Active Team Status: Active Member Role Status Dates Ann Fournier NP-Leo Primary Care Provider Active Team Status: Inactive Member Role Status Dates CAROLYN Fitzgerald Primary Care Provider Active Anila Granados MD Attending Provider Active Goals (unrecognized section and content) Goals may be documented in a n alternate section FOR RECORDS PERTAINING TO PATIENTS WHO ARE OR HAVE BEEN ENROLLED IN A CHEMICAL DEPENDENCY/SUBSTANCEABUSE PROGRAM, SOME INFORMATION MAY BE OMITTED. This clinical summary was aggregated from multiple sources. Caution should be exercised in using it in the provision of clinical care. This summary normalizes information from multiple sources, and as a consequence, information in this document may materially change the coding, format and clinical context of patient data. In addition, data may be omitted in some cases. CLINICAL DECISIONS SHOULD BE BASED ON THE PRIMARY CLINICAL RECORDS. [employer] [facility]. provides no warranty or guarantee of the accuracy or completeness of information in this document.
--- NOTE | 2023-06-17 15:14 | XR_ITS ---
The [place] [id number] Patient Name: MARY JANE Foy [facility] MRN: [facility]:[id number] date: 1970 Sex: F Assigned Patient Location: LAB Current Patient Location: LAB Accession/Order Number: [id number] Exam Date: 06/17/2023 15:21 Report Date: 06/17/2023 15:46 At the request of: RICHELLE FOURNIER Procedure: XR ribs LT min 3V w CXR1V EXAM: XR ribs LT min 3V w CXR1V HISTORY: left rib pain R07.81 COMPARISON: Chest study dated 09/04/2021 TECHNIQUE: Left rib series was performed. FINDINGS: Artifact versus essentially undisplaced fracture of the anterior aspect of the left eighth rib on page 4 of 5. Correlate for point tenderness. No obvious focal lytic or sclerotic lesions are identified. PA view of the chest was obtained. Heart and mediastinal contours are unremarkable in appearance. No acute infiltrate or consolidations are seen. No obvious pneumothorax. Mild to moderate degenerative changes in the dorsal spine with slight convexity to the right. Postoperative opacities at the right humeral head level. XR/XR ribs LT min 3V w CXR1V IMPRESSION: Left rib series demonstrates possible essentially undisplaced fracture of the anterior left eighth rib, correlate for point tenderness. No acute process seen in the chest. Follow-up as needed. Electronically authenticated by: REX SMALLWOOD Date: 06/17/2023 15:46
[2023-06-17 17:22] LABS: Free T3 2.05 pg/mL (2.18-3.98)
== END 2023-06-17 14:49 | disposition home or self-care (01) ==
PROVIDERS: PCP Nurse Practitioner Family; Visit Provider Nurse Practitioner Family
DX: R07.81 Pleurodynia (principal); E03.9 Hypothyroidism, unspecified
CPT/HCPCS: 36415; 71101; 84436; 84443; 84481

== ENCOUNTER 2023-08-27 12:54 | Outpatient (OUT) | payer MEDICARE, MEDICAID, SELFPAY | END 2023-08-27 12:55 | disposition home or self-care (01) | LOC: PST 12:55 | PROVIDERS: PCP Nurse Practitioner Family; Visit Provider Surgery | DX: Z01.818 Encounter for other preprocedural examination (principal); R13.10 Dysphagia, unspecified ==

== ENCOUNTER 2023-08-27 12:55 | Outpatient (OUT) | payer MEDICARE, MEDICAID, SELFPAY ==
--- NOTE | 2023-08-27 12:58 | FL_ITS ---
The [address] [address] Patient Name: MARY JANE Foy [facility] MRN: [id number] date: 1970 Sex: F Assigned Patient Location: [place] Current Patient Location: [place] Accession/Order Number: [id number] Exam Date: 08/27/2023 13:10 Report Date: 08/27/2023 15:06 At the request of: NON-STAFF PHYSICIAN Procedure: FL barium swallow EXAMINATION: FL barium swallow, FL cineradiography HISTORY: Dysphagia R13.10 COMPARISON: No relevant comparison available. TECHNIQUE: A swallowing evaluation was performed with fluoroscopy in the usual manner. Standard level fluoroscopic mode of operation utilized. FINDINGS: HYPOPHARYNX: No appreciable stricture, mass, or irregularity. ESOPHAGUS:No visible obstruction, dilatation, reflux or hernia OTHER: Negative. FL/FL barium swallow IMPRESSION: 1. No appreciable abnormality to account for patient's symptoms. 2. No appreciable reflux or penetration of the upper airway during today's study. 3. Consider a Fluoroscopic Modified Swallowing Study in conjunction with speech therapy if symptoms persist. Electronically authenticated by: AFIA AVILEZ Date: 08/27/2023 15:06
--- NOTE | 2023-08-27 13:35 | FL_ITS ---
[address] [address] Patient Name: MARY JANE Foy [facility] MRN: [id number] date: 1970 Sex: F Assigned Patient Location: [place] Current Patient Location: [place] Accession/Order Number: [id number] Exam Date: 08/27/2023 13:10 Report Date: 08/27/2023 15:06 At the request of: NON-STAFF PHYSICIAN Procedure: FL cineradiography EXAMINATION: FL barium swallow, FL cineradiography HISTORY: Dysphagia R13.10 COMPARISON: No relevant comparison available. TECHNIQUE: A swallowing evaluation was performed with fluoroscopy in the usual manner. Standard level fluoroscopic mode of operation utilized. FINDINGS: HYPOPHARYNX: No appreciable stricture, mass, or irregularity. ESOPHAGUS:No visible obstruction, dilatation, reflux or hernia OTHER: Negative. FL/FL cineradiography IMPRESSION: 1. No appreciable abnormality to account for patient's symptoms. 2. No appreciable reflux or penetration of the upper airway during today's study. 3. Consider a Fluoroscopic Modified Swallowing Study in conjunction with speech therapy if symptoms persist. Electronically authenticated by: AFIA AVILEZ Date: 08/27/2023 15:06
== END 2023-08-27 12:56 | disposition home or self-care (01) ==
LOC: FL 12:55
PROVIDERS: PCP Nurse Practitioner Family
DX: R13.10 Dysphagia, unspecified (principal)
CPT/HCPCS: 74220; 76120

== ENCOUNTER 2023-09-03 06:37 | Day surgery (SDC) | payer MEDICARE, MEDICAID, SELFPAY ==
--- OUTSIDE RECORDS SUMMARY | 2023-09-03 06:41 | XMS_ITS | CCD ---
Author Organization [facility] Care Team Providers Care Pen Rider Name Role Phone ANTONIO BRIAN Unavailable Unavailable JARAD NULL Unavailable Unavailab le RENA, SEA Primary Care Unavailable HOY, SEA Referring Unavailable ELTAHAWY, EHAB A Admitting Unavailable ELTAHAWY, EHAB A Attending Unavailable HOY, SEA Primary Care Unavailable HOY, SEA Referring Unavailable ELTAHAWY, EHAB A Admitting Unavailable ELTAHAWY, EHAB A Attending Unavailable Jasmine, Anila Unavailable Arthur Moy Unavailable MD Arthur Moy Attending Provider SHANTANU, ANN Primary Care Unavailable JASMINE, ANILA Admitting Unavailable JASMINE, ANILA Attending Unavailable JASMINE, ANILA Consulting Unavailable SHANTANU, ANN Primary Care Unavailable SHANTANU, ANN Admitting Unavailable SHANTANU, ANN Attending Unavailable SHANTANU, ANN Consulting Unavailable Zieber, Afia Consulting Unavailable SHANTANU, ANN Primary Care Unavailable SHANTANU, ANN Admitting Unavailable SHANTANUANN Attending Unavailable SHANTANU, ANN Consulting Unavailable JASMINE, ANILA Admitting Unavailable JASMINE, ANILA Attending Unavailable JASMINE, ANILA Consulting Unavailable SHANTANU, ANN Primary Care Unavailable SAMSA ., DENYS Admitting Unavailable SAMSA ., DENYS Attending Unavailable Isabel, Afia Consulting Unavailable SHANTANU, ANN Primary Care Unavailable SAMSA ., DENYS Consulting Unavailable AMILCAR, DR AZEEM Whyte Admitting Unavailable AMILCAR, DR AZEEM Whyte Attending Unavailable AMILCAR, DR AZEEM Whyte Consulting Unavailable SHANTANU, ANN Primary Care Unavailable SEUN, AFIA Consulting Unavailable SHANTANU, ANN Primary Care Unavailable PAY ., DR HURD Admitting Unavailable PAY ., DR HURD Attending Unavailable PAY ., DR HURD Consulting Unavailable SHANTAUN, ANN Primary Care Unavailable ANN FOURNIER Admitting Unavailable ANN FOURNIER Attending Unavailable ANN FOURNIER Consulting Unavailable Misha Christian Unavailable CAROLYN Fournier Primary Care Provider MD Anila Granados Attending Provider Ann Fournier Primary Care Unavailable Anila Granados Admitting Unavailable Anila Granados Attending Unavailable Olexa, Arthur Attending Unavailable Olexa, Arthur Admitting Unavailable Olexa, Arthur Admitting Unavailable Olexa, Arthur Attending Unavailable ENEDINA ROMERO Attending Unavailable ENEDINA ROMERO Attending Unavailable Ann Lynn Primary Care Provider ANN FOURNIER Primary Care Unavailable KAREN, SHYANN Attending Unavailable SHYANN JONES Referring Unavailable ANN FOURNIER Primary Care Unavailable RENEE GRUBER Attending Unavailable JARAD NULL Referring Unavailable JARAD NULL Primary Care Unavailable ANN FOURNIER S Referring Unavailable ANN FOURNIER S Primary Care Unavailable Allergies Allergy Classification Reported Allergen(s) Allergy Type Date of Onset Reaction(s) Facility Acetaminophen / oxyCODONE (1 source) Acetaminophen / oxyCODONE Drug Allergy 021 [facility] Repository Aspirin (1 source) Aspirin Drug Allergy 021 [facility] Repository Cephalosporins (antibiotic) (3 sources) Cephalexin; 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: [cephalexin] Drug Allergy [facility] Repository Macrolides (antibiotic) (1 source) Clarithromycin Drug Allergy 021 [facility] Repository Penicillins (antibiotic) (1 source) Penicillin Drug Allergy 021 [facility] Repository Quinolones (antibiotic) (2 sources) moxifloxacin; 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: [Cipro] Drug Allergy [facility] Repository Sulfamethoxazole / Trimethoprim (1 source) Sulfamethoxazole / Trimethoprim Drug Allergy 021 [facility] Repository Unclassified (10 sources) Adhesive agent Drug allergy (disorder) 021 Unknown [facility] Rep[facility] (10 sources) Acetaminophen / oxyCODONE Drug Allergy 018 Vomiting [facility] [employer] Other (12 sources) Aspirin; 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: [ASPIRIN] Drug Allergy 018 Vomiting [facility] (10 sources) cefprozil; 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: [Cefzil] Drug Allergy 013 Unknown [facility] Repository (12 sources) Cephalexin; 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: [CEPHALEXIN] Drug Allergy [facility] [employer] Other (9 sources) Cephalosporins (Antibiotic) Propensity to adverse reactions [facility] [employer] Other (20 sources) Ciprofloxacin; 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: [ciprofloxacin] Drug Allergy [facility] [employer] Other (20 sources) moxifloxacin; 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: [MOXIFLOXACIN] Drug Allergy [facility] [employer] Other (9 sources) oxyCODONE Drug Allergy nausea [facility] [employer] Other (9 sources) penicillAMINE Drug Allergy anaphylaxis [facility] [employer] Other (11 sources) Penicillins; 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: [PENICILLINS] Propensity to adverse reactions Unknown [facility] Repository (10 sources) Soy protein; 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: [soy] Propensity to adverse reactions 014 anaphylaxis [facility] Repository (12 sources) Sulfamethoxazole; 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: [SULFAMETHOXAZOLE] Drug Allergy 011 Anaphylaxis, Swelling [facility] [employer] Other (10 sources) Sulfamethoxazole / Trimethoprim Drug Allergy 018 anaphylaxis [facility] [employer] Other (12 sources) Sulfanilamide; 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: [SULFANILAMIDE] Drug Allergy 023 Anaphylaxis [facility] [employer] Other (12 sources) Trimethoprim; 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: [TRIMETHOPRIM] Drug Allergy 023 Anaphylaxis [facility] [employer] Other (9 sources) Foam Tape Propensity to adverse reactions Unknown [facility] [employer] Other (9 sources) BCise Propensity to adverse reactions stomach upset [employer] [facility] [employer] Other (9 sources) Avalox Propensity to adverse reactions Unknown [employer] [facility] [employer] Other (1 source) Acetaminophen / oxyCODONE Drug Allergy 014 [facility] Repository (1 source) Aspirin Drug Allergy [facility] (1 source) Cephalexin Drug Allergy [facility] (1 source) Ciprofloxacin Drug Allergy [facility] (1 source) Clarithromycin Drug Allergy [facility] (1 source) Desonide Drug Allergy 013 [facility] (1 source) egg extract Drug Allergy [facility] (1 source) moxifloxacin Drug Allergy 013 [facility] (1 source) Penicillins Drug allergy (disorder) 013 [facility] Repository (1 source) Sulfamethoxazole / Trimethoprim Drug Allergy 013 [facility] (1 source) tomato allergenic extract Drug Allergy 015 [facility] Rep[facility] (1 source) Misc-ENV; 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: [Misc-ENV] Propensity to adverse reactions (disorder) [facility] Rep[facility] (1 source) Misc-Other; 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: [Misc-Other] Propensity to adverse reactions (disorder) [facility] (1 source) Misc-Food; 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: [Misc-Food] Food allergy (disorder) [facility] (9 sources) Azithromycin; 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: [AZITHROMYCIN] Drug Allergy 024 rash, Hives [facility] (3 sources) cefprozil; 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: [CEFPROZIL] Drug Allergy 018 Hives [facility] (1 source) Penicillins Propensity to adverse reactions to drug 07-11-2 018 Anaphylaxis [facility] (2 sources) Acetaminophen / oxyCODONE; 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: [OXYCODONE-ACETAMIN OPHEN] Drug Allergy [facility] Repository (2 sources) Sulfamethoxazole / Trimethoprim; 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: [SULFAMETHOXAZOLE-T RIMETHOPRIM] [facility] Medications Current Medications Medication Drug Class(es) Dates Sig (Normalized) Sig (Original) [id number] 200 actuat albuterol 0.09 mg/actuat metered dose inhaler (18 sources) beta2-Adrenergic Agonist take 2 puff(s) by inhalation every four hours as needed albuterol (PROVENTIL HFA;VENTOLIN HFA) 90 mcg/actuation inhaler Inhale 2 puffs every 4 (four) hours as needed for shortness of breath. 0 Active Albuterol Sulfat e (2.5 MG/3ML) 0.083% Inhalation for 30 Days Active take 2 puff(s) by in halation every four hours as needed Ventolin HFA 108 (90 Base) MCG/ACT 2 puffs as needed Inhalation every 4 hrs Active allopurinol 300 mg oral tablet (10 sources) Xanthine Oxidase Inhibitor take 1 tablet by mouth in the morning allopurinoL (ZYLOPRIM) 300 mg tablet Take 1 tablet (300 mg total) by mouth in the morning. 0 Active ascorbic acid 250 mg chewable tablet (4 sources) Vitamin C ascorbic acid, v itamin C, (ascorbic acid) 250 mg tablet,chewable Chew and swallow. 0 Active biotin 10 mg oral capsule (10 sources) biotin 10,000 mc g capsule Take by mouth. 0 Active take 1 tablet by mouth once maura y Biotin 10 MG 1 tablet Orally Once a day Active 60 actuat budesonide 0.16 mg/actuat / formoterol fumarate 0.0045 mg/actuat metered dose inhaler (10 sources) Corticosteroid, beta2-Adrenergic Agonist Start: 10-06-2017 SYMBICORT 160-4 .5 mcg/actuation inhaler take 2 puff(s) by inhalation twi ce daily Symbicort 160-4.5 MCG/ACT 2 puffs Inhalation Twice a day Active cholecalciferol 0.05 mg oral capsule (7 sources) Vitamin D take 1 capsule by mouth in the morning cholecalciferol, vitamin D3, 2,000 units capsule Take 1 capsule (2,000 Units total) by mouth in the morning. 0 Active take 1 capsule by mo uth every twenty-four hours Vitamin D3 50 MCG (2000 UT) 1 capsule Orally Once a day Active Cholest Off 450 MG (9 sources) take 450 mg by mouth twice daily Cholest Off 450 MG Orally TWICE A DAY Active Cholest Off 450 MG Orally Active cinnamon bark 500 mg oral capsule (1 source) take 4 capsules by mouth in the morning cinnamon bark (CINNAMON) 500 mg capsule Take 4 capsules (2,000 mg total) by mouth in the morning. 0 Active Cinnamon Preparation (9 sources) Non-Standardized Food Allergenic Extract take 1000 mg by mouth twice maura y Cinnamon 1000 MG as directed Orally TWICE A DAY Active Cinnamon 1000 MG as directed Orally Active cyclobenzaprine hydrochloride 10 mg oral tablet (10 sources) Muscle Relaxant Start: 11-03-2017 cyclobenzaprin e (FLEXERIL) 10 mg tablet Flexeril 10mg 1 Oral once daily Active docusate sodium 250 mg oral capsule (9 sources) take 1 capsule by mo uth every twenty-four hours Stool Softener 250 MG 1 capsule as needed Orally Once a day Active take 3 capsules by m outh every twenty-four hours Stool Softener 250 MG [...] day Active fenofibrate 160 mg oral tablet (10 sources) Peroxisome Proliferator Receptor alpha Agonist Start: 018 fenofibrate (LOFIBRA) 160 mg tablet ferrous sulfate 325 mg oral tablet (1 source) take 1 tablet by mouth once daily at breakfast ferrous sulfate (IRON) 325 (65 FE) mg tablet Take 1 tablet (325 mg total) by mouth daily with breakfast. 0 Active fexofenadine hydrochloride 180 mg oral tablet (10 sources) Histamine-1 Receptor Antagonist take 1 tablet by mouth in the morning fexofenadine (ORAL) 180 mg tablet Take 1 tablet (180 mg total) by mouth in the morning. 0 Active Fiber (Guar Gum) 15 Grams (9 sources) take 15 g by mouth once daily Fi jamal (Guar Gum) 15 Grams as directed Orally once a day Active fluticasone propionate 0.05 mg/actuat metered dose nasal spray (10 sources) Corticosteroid Start: 10-06-2017 fluticasone (F LONASE) 50 mcg/actuation nasal spray take 2 spray(s) nasal route once daily Fluticasone Propionate 50 MCG/ACT [...] Oct, Active furosemide 40 mg oral tablet (10 sources) Loop Diuretic Start: 10-06-2017 furosemide (LA SIX) 40 mg tablet 3 ml insulin, regular, human 500 unt/ml pen injector (10 sources) Insulin Start: 10-07-2017 HUMULIN R U-50 0, CONC, KWIKPEN injection Inject 150 Units of U-500 under the skin in the morning and 150 Units of U-500 at noon and 150 Units of U-500 in the evening and 150 Units of U-500 before bedtime. 150-190 units QID. 0 10/07/2017 Active HumuLIN R U-500 (CONCENTRATED) 500 UNIT/ML as directed Subcutaneous INSULIN PUMP Active inulin 2000 mg chewable tabl et (1 source) inulin (FIBER MMIES) 2 gram tablet,chewable Chew and swallow. 0 Active Iron (9 sources) Iron (Ferrous Gl uconate) 325 MG Orally Active krill oil 300 mg oral capsul e (9 sources) Krill Oil 300 MG Orally Active [id number] mg capsule (1 source) [id number]-[id number]-[id number] mg capsule Take by mouth. 0 Active Lactobacillus acidophilus (1 source) Lactobacillus ac idophilus (ACIDOPHILUS) capsule Take 1 capsule by mouth in the morning and 1 capsule at noon and 1 capsule in the evening. Take with meals. 0 Active levothyroxine sodium 0.15 mg oral tablet (10 sources) l-Thyro xine Start: 018 levothyroxine (SYNTHROID, LEVOTHROID) 150 MCG tablet Levothyroxine So dium 175 MCG 1 tablet every morning on an empty stomach Orally Once a day Active metoprolol tartrate 50 mg oral tablet (10 sources) beta-Adrenergic Ayala Start: 10-06-2017 metopr olol tartrate (LOPRESSOR) 50 mg tablet montelukast 10 mg oral tablet (10 sources) Leukotriene Receptor Antagonist Start: 11-03-2017 montelukast (SINGULAIR) 10 mg tablet multivitamin tablet,chewable (1 source) multivitamin tablet,chewable Chew 2 capsules and swallow. 0 Active Multivitamins (9 sources) Multivitamins as directed Orally Active OmniPod Dash 5 Pack - (3 sources) OmniPod Dash 5 P ack - as directed In Vitro Change every 72 hours for 90 days Active Omnipod DASH Pods (Gen 4) - (2 sources) Omnipod DASH Pod s (Gen 4) - for 90 Days Active ondansetron 4 mg disintegrating oral tablet (1 source) Serotonin-3 Receptor Antagonist Start: 11-25-2017 ondansetron ODT (ZOFRAN-ODT) 4 mg disintegrating tablet One Touch Glucometer 1 (3 sources) Start: 11-05-2016 One Touch Glucometer 1 as directed SQ qid for 365 days Oct, Active pantoprazole 40 mg delayed release oral tablet (10 sources) Proton Pump Inhibitor Start: 11-03-2017 pantoprazole (PROTONIX) 40 mg EC tablet Pen [place] 5/16 (3 sources) Start: 08-05-2018 Pen [place] 5/16 USE WITH PEN INSULIN SQ qid for 90 day(s) Jul, Active pregabalin 75 mg oral capsule (10 sources) Start: 11-03-2017 LYRICA 75 mg capsule take 1 capsule by mouth every ei ght hours Lyrica 100 MG 1 capsule Orally tid Active Probiotic - (9 sources) Probiotic - Oral ly Active Spiriva Respimat 2.5 mcg/act uation (9 sources) Spiriva Respimat 2.5 mcg/actuation 2 puffs daily Active Super B Complex (9 sources) Super B Complex Active tiotropium (1 source) Anticholinergic take 2 puff(s) by inhalation in the morning tiotropium bromide 1.25 mcg/actuation mist Inhale 2 puffs in the morning. 0 Active traMADol hydrochloride 50 mg oral tablet (4 sources) Opioid Agonist Start: 10-08-19 23 take 1 tablet by mouth every six hours as needed for pain traMADol HCl 50 MG 1 tablet as needed for pain Orally up to every 6 hrs for 7 days ANIYAH: [id number] September, Active triamcinolone acetonide 0.001 mg/mg topical ointment (8 sources) Corticosteroid Triamcinolone Acetonide 0.1 % External for 90 Days Active TRULICITY 4.5 mg/0.5 mL pen injector (1 source) Start: 07-07-19 24 inject 4.5 mg by subcutaneous injection every week TRULICITY 4.5 mg/0.5 mL pen injector Inject 4.5 mg under the skin once a week. Sundays 0 07/07/2023 Active Vitamin B Complex (1 source) vitamin B comple x (SUPER B-50 COMPLEX PLUS ORAL) Take by mouth. 0 Active Vitamin C 250 MG (6 sources) take 1 tablet by mouth once maura y Vitamin C 250 MG 1 tablet Orally Once a day Active vitamin e 180 mg oral capsule (1 source) take 1 capsule by mo uth in the morning vitamin E, dl,tocopheryl acet, (VITAMIN E, DL, ACETATE,) 400 unit capsule Take 1 capsule (400 Units total) by mouth in the morning. 0 Active Vitamin E 400 UNIT (9 sources) [...] Drug Class(es) Dates Sig (Normalized) Sig (Original) Calcium Carbonate / vitamin D3 (1 source) End: 08-14-2023 calcium carbonate/vitamin D3 (CALCIUM 500 + D, D3, ORAL) Take by mouth. 0 08/14/2023 Discontinued (Duplicate Listing) doxycycline hyclate 100 mg oral capsule (1 source) Tetracycline-clas s Drug Doxycycline Hyclate 100 MG Oral for 14 Days Not-Taking Durolane (1 source) Start: 11-11-2022 Durolane Oct, 60 mg nystatin [id number] unt/ml topical cream (1 source) Polyene Antifungal Start: 11-04-2017 End: 08-14-2023 nystatin (MYCOSTATIN) cream raNITIdine 150 mg oral tablet (1 source) Histamine-2 Receptor Antagonist Start: 10-06-2017 End: 08-14-2023 raNITIdine (ZANTAC) 150 mg tablet SITagliptin 100 mg oral tablet (1 source) Dipeptidyl Peptidase 4 Inhibitor Start: 11-03-2017 End: 08-14-2023 JANUVIA 100 mg tablet zileuton 600 mg oral tablet (2 sources) 5-Lipoxygenase Inhibitor take 2 tablets by mouth every twelve hours Zyflo 600 MG 2 tablet orally bid Not-Taking Problems Active Problems Problem Classification Problem Date Documented Da te Episodic/Chronic Asthma (20 sources) Cough variant asthma; 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: [Cough variant asthma] Onset: 8 Chronic Cancer of ovary (2 sources) History of malignant neoplasm of ovary; 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: [Personal history of malignant neoplasm of ovary] Onset: 4 08-14-2023 Episodic Chronic kidney disease (20 sources) Chronic kidney disease stage 2; 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: [CKD (chronic kidney disease) stage 2, GFR 60-89 ml/min] Onset: 2 Chronic Chronic kidney disease (13 sources) Chronic kidney disease; 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: [Chronic kidney disease, stage III (moderate)] Onset: 2 Resolved: 2 Chronic obstructive pulmonary disease and bronchiectasis (2 sources) Unspecified chronic bronchitis; 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: [Chronic obstructive pulmonary disease with (acute) exacerbation] Onset: 2 Chronic Coronary atherosclerosis and other heart disease (1 source) Coronary atherosclerosis and other heart disease Onset: 8 Deficiency and other anemia (9 sources) Anemia in chronic kidney disease; 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: [Anemia in chronic kidney disease] Chronic Deficiency and other anemia (9 sources) Iron deficiency anemia; 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: [Iron deficiency anemia] Episodic Diabetes mellitus with complications (20 sources) Disorder of kidney due to diabetes mellitus; 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: [Type 2 diabetes mellitus with diabetic nephropathy] Onset: 2 Resolved: 2 Chronic Diabetes mellitus without complication (20 sources) Insulin dose changed; 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: [Encounter for fitting and adjustment of insulin pump] Onset: 8 Chronic Diabetes mellitus without complication (10 sources) Insulin pump present; 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: [Presence of insulin pump (external) (internal)] Onset: 2 Episodic Diabetes mellitus without complication (1 source) Diabetes mellitus without complication; 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: [Type 2 diabetes mellitus with diabetic chronic kidney disease] Onset: 3 Disorders of lipid metabolism (20 sources) Hyperlipidemia; 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: [Other and unspecified hyperlipidemia] Onset: 8 Chronic E Codes: Fall (1 source) Unspecified fall, initial encounter; 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: [Unspecified fall, initial encounter] Onset: 4 Episodic E Codes: Fall (1 source) Fall Onset: 4 Esophageal disorders (10 sources) Gastroesophageal reflux disease; 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: [GERD [Gastroesophageal reflux disease]] Onset: 2 Chronic Essential hypertension (9 sources) Essential hypertension; 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: [Essential (primary) hypertension] Chronic Fluid and electrolyte disorders (6 sources) Other disorders of electrolyte and fluid balance, not elsewhere classified; 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: [OTHER D/O ELECTROLYTE AND FL BAL NEC] Onset: 2 Resolved: 2 Episodic Hypertension with complications and secondary hypertension (19 sources) Chronic kidney disease due to hypertension; 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: [Hypertensive chronic kidney disease with stage 1 through stage 4 chronic kidney disease, or unspecified chronic kidney disease] Onset: 2 Resolved: 2 Chronic Nonspecific chest pain (1 source) Chest pain, unspecified; 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: [Chest pain, unspecified] Onset: 8 Episodic Nutritional deficiencies (15 sources) Vitamin D deficiency; 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: [Vitamin D deficiency, unspecified] Onset: 2 Resolved: 2 Chronic Osteoarthritis (20 sources) Osteoarthritis; 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: [DJD (degenerative joint disease)] Onset: 8 Chronic Other aftercare (9 sources) Long-term current use of insulin; 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: [FCI (current) use of insulin] Episodic Other aftercare (9 sources) H/O: high risk medication; 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: [Other 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 renewal inspector (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) drug therapy] Episodic Other diseases of kidney and ureters (9 sources) Renal osteodystrophy; 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: [Renal osteodystrophy] Chronic Other endocrine disorders (9 sources) 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; 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: [Other hypoglycemia] Chronic Other endocrine disorders (6 sources) Hypoparathyroidism; 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: [Hypoparathyroidism, unspecified] Chronic Other endocrine disorders (3 sources) Hypoparathyroidism, unspecified; 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: [Hypoparathyroidism, unspecified] Onset: 3 Chronic Other gastrointestinal disorders (1 source) Dysphagia; 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: [Dysphagia, unspecified] 08-14-2023 Episodic Other gastrointestinal disorders (1 source) Dysphagia, unspecified; 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: [Dysphagia, unspecified] Onset: 4 Episodic Other inflammatory condition of skin (1 source) [...] whether generalized or localized, lower leg] Onset: 8 Chronic Other non-traumatic joint disorders (4 sources) Pain in left hip; 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: [PAIN IN LEFT HIP] Onset: 3 Episodic Other nutritional; endocrine; and metabolic disorders (20 sources) Body mass index 40+ - severely obese; 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: [Body mass index (BMI) 50.0-59.9, adult] 08-14-2023 Chronic Other nutritional; endocrine; and metabolic disorders (9 sources) Morbid obesity; 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: [Morbid (severe) obesity due to excess calories] Chronic Other nutritional; endocrine; and metabolic disorders (4 sources) Morbid (severe) obesity due to excess calories; 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: [MORBID SEVERE OBES D/T EXCESS VANI] Onset: 2 Chronic Other nutritional; endocrine; and metabolic disorders (2 sources) Body mass index (BMI) 45.0-49.9, adult; 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: [BODY MASS INDEX BMI 45.0-49.9 ADULT] Onset: 2 Chronic Other nutritional; endocrine; and metabolic disorders (4 sources) Severe obesity; 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: [Morbid (severe) obesity due to excess calories] Chronic Other nutritional; endocrine; and metabolic disorders (2 sources) Body mass index (BMI) 50.0-59.9, adult Chronic Other upper respiratory disease (9 sources) Allergic rhinitis; 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: [Allergic rhinitis due to other allergen] Onset: 0 Chronic Other upper respiratory infections (10 sources) Chronic sinusitis; 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: [Unspecified sinusitis (chronic)] Onset: 0 Chronic Residual codes; unclassified (1 source) Pain, unspecified; 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: [Pain, unspecified] Onset: 4 Episodic Spondylosis; intervertebral disc disorders; other back problems (20 sources) Solitary sacroiliitis; 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: [Sacroiliitis, not elsewhere classified] Chronic Spondylosis; intervertebral disc disorders; other back problems (1 source) Cervicalgia Episodic Thyroid disorders (19 sources) Hypothyroidism; 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: [Hypothyroidism, unspecified] Onset: 8 Chronic Unclassified (2 sources) Chest pain, unspecified / R07.9(ICD-9) Onset: 8 Unclassified (1 source) Shortness of breath / R06.02(ICD-9) Onset: 8 Unclassified (1 source) Supraventricular tachycardia / I47.1(ICD-9) Onset: 8 Unclassified (1 source) Morbid (severe) obesity due to excess calories / E66.01(ICD-9) Onset: 8 Unclassified (1 source) CHRN KIDNEY DISEASE STG 3 UNSP; 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: [CHRN KIDNEY DISEASE STG 3 UNSP] Onset: 3 Unclassified (1 source) CONTACT W/AND (SUSP) EXPOS COVID-19; 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: [CONTACT W/AND (SUSP) EXPOS COVID-19] Onset: 2 Unclassified (1 source) Pain in left knee; 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: [Pain in left knee] Onset: 3 Unclassified (1 source) Pain in right shoulder; 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: [Pain in right shoulder] Onset: 3 Unclassified (1 source) EMS Onset: 4 Unclassified (1 source) Emotional state finding Onset: 4 Past or Other Problems Problem Classification Problem Date Documented Date Episodic/Chronic Deficiency and other anemia (1 source) Anemia, unspecified; 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: [ANEMIA UNSPECIFIED] Onset: 02-07-2022 Episodic Fever of unknown origin (4 sources) Fever, unspecified; 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: [FEVER UNSPECIFIED] Onset: 05-13-2022 Episodic Other aftercare (1 source) Other nursing home (current) drug therapy; 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: [OTH ENVIRONMENTAL COMPLIANCE ENGINEER CURRENT DRUG THERAPY] Onset: 09-10-2021 Episodic Other aftercare (1 source) [facility] (current) use of insulin; 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: [ASSISTED CURRENT USE OF INSULIN] Onset: 09-10-2021 Episodic [...] Test Name Value Interpretation Reference Range Facility CT BRAIN WO CONTon [address] BRAIN WO CONT CT BRAIN WO CONT EXAM:CT BRAIN WO CONT INDICATION: Head trauma, moderate-severe COMPARISON: None TECHNIQUE: Standard noncontrast axial CT sections through the head. All CT scans at this facility use dose modulation, iterative reconstruction, and/or weight based dosing when appropriate to reduce radiation dose to as low as reasonably achievable. FINDINGS: Brain Parenchyma: No acute hemorrhage, cerebral edema, or acute cortical infarction. No mass effect, or midline shift. Ventricles and Sulci: Normal for age. Extra-Axial Spaces: No extra-axial fluid collection. Orbits, paranasal sinuses, midface structures, mastoid air cells: Normal Cranium and extracranial soft tissues: No fractures are identified IMPRESSION: No acute or subacute intracranial abnormalities. Finalized by Antonio Elizondo on 08/14/2023 5:19 PM Normal [facility] CT CERVICAL SPINE WO CONTon 08-14-2023 CT CERVICAL SPINE WO CONT CT CERVICAL SPINE WO CONT CT CERVICAL SPINE WO CONT HISTORY: Neck pain, trauma, dangerous mechanism COMPARISON: None TECHNIQUE: Multi detector CT slices of the cervical spine were obtained without IV contrast. CT was performed with one or more of the following dose reduction techniques: Automated exposure control, adjustment of the mA and/or kV according to patient size, or use of iterative reconstruction technique. FINDINGS: The cervical alignment is maintained. The vertebral body heights are preserved. Mild multilevel degenerative disc space narrowing and anterior endplate osteophytosis. There is ossification of the posterior longitudinal ligament at C5 and C6 with thecal sac narrowing. No significant facet arthropathy. No acute fracture is identified. The craniocervical junction and atlantoaxial joint are within normal limits. No destructive osseous lesion. The prevertebral and paraspinous soft tissues are within normal limits. The lung apices are unremarkable. IMPRESSION: * No acute fracture or malalignment. 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 Correlate with cervical myelopathy. Consider nonemergent cervical spine MRI if clinically indicated. Approved by Resident: Miles Elder DO on 08/14/2023 5:15 PM Antonio Hernandez MD have personally reviewed the image(s) and agree with and/or edited the report Finalized by Antonio Og MD on 08/14/2023 5:30 PM Normal [facility] Albumin [Mass/volume] in Ser um or Plasma by Bromocresol green (BCG) dye binding methoOrdered By: Anila Granados on 04-30-2023 Albumin BCG dye [Mass/Vol] 3.8 g/dL 3.5-5.7 [facility] Automated erythrocytes count in urine sediment (number/area)Ordered By: Anila Jasmine on 04-30-2023 RBC Auto (Urine sed) [#/Area] 5-9 [HPF] 0-4 [facility] Automated leukocytes count i n urine sediment (number/area)Ordered By: Anila Jasmine on 04-30-2023 WBC Auto (Urine sed) [#/Area] 1-2 [HPF] 0-4 [facility] Bilirubin Test strip Ql (U)O rdered By: Anila Sellersr on 04-30-2023 Bilirubin Ql (U) Negative Negative [facility] Calcium [Mass/volume] in Ser um or PlasmaOrdered By: Anila Jasmine on 04-30-2023 Calcium [Mass/Vol] 9.1 mg/dL 8.6-10.3 [facility] Carbon dioxide, total [Moles /volume] in Serum or PlasmaOrdered By: Anila Jasmine on 04-30-2023 CO2 [Moles/Vol] 31.5 mmol/L 21.0-31.0 [facility] Chloride [Moles/volume] in S faviola or PlasmaOrdered By: Anila Jasmine on 04-30-2023 Chloride [Moles/Vol] 102 mmol/L 98-107 [facility] Color Auto (U)Ordered By: Ab garcia Granados on 04-30-2023 Color (U) Yellow Yellow [facility] Creatinine [Mass/volume] in Serum or PlasmaOrdered By: Anila Jasmine on 04-30-2023 Creatinine [Mass/Vol] 1.53 mg/dL 0.60-1.20 [facility] Creatinine [Mass/volume] in UrineOrdered By: Anila Jasmine on 04-30-2023 Creatinine (U) [Mass/Vol] 34.0 mg/dL 11.0-20.0 [facility] Dipstick and Microscopicon 1 06-30-2022 Appearance (U) Clear Normal Clear [facility] Comment on above: Order Comment: Reaso n for Exam Chronic kidney disease, stage III (moderate);Disorders of fl Name Collection Type:: Clean-Voided Midstream Performed By: #### A DDONUAPLUS #### [facility] [address] Bacteria,Urine None Seen Normal None Seen [facility] Comment on above: Order Comment: Reaso n for Exam Chronic kidney disease, stage III (moderate);Disorders of fl Name Collection Type:: Clean-Voided Midstream Performed By: #### A DDONUAPLUS #### [facility] [address] [place] [address] [place] Bilirubin,Urine Negative Normal Negative [facility] Comment on above: Order Comment: Reaso n for Exam Chronic kidney disease, stage III (moderate);Disorders of fl Name Collection Type:: Clean-Voided Midstream Performed By: #### A DDONUAPLUS #### [facility] [address] [place] [address] [place] Color (U) Yellow Normal Yellow [facility] Comment on above: Order Comment: Reaso n for Exam Chronic kidney disease, stage III (moderate);Disorders of fl Name Collection Type:: Clean-Voided Midstream Performed By: #### A DDONUAPLUS #### [facility] [address] [place] [address] [place] Glucose Ql (U) Normal Normal Normal [facility] Comment on above: Order Comment: Reaso n for Exam Chronic kidney disease, stage III (moderate);Disorders of fl Name Collection Type:: Clean-Voided Midstream Performed By: #### A DDONUAPLUS #### [facility] [address] [place] [address] [place] Hyaline Casts,Urine None Seen Normal 0-8 [facility] Comment on above: Order Comment: Reaso n for Exam Chronic kidney disease, stage III (moderate);Disorders of fl Name Collection Type:: Clean-Voided Midstream Result Comment: PERF ORMED BY: [place] [address] PATHOLOGIST [employer] MEERA GRIFFITHS M.D. Performed By: #### A DDONUAPLUS #### [address] Ketones Ql (U) Negative Normal Negative [facility] Comment on above: Order Comment: Reaso n for Exam Chronic kidney disease, stage III (moderate);Disorders of fl Name Collection Type:: Clean-Voided Midstream Performed By: #### A DDONUAPLUS #### [address] Leukocyte esterase Test strip Ql (U) 1+ High Negative [facility] Comment on above: Order Comment: Reaso n for Exam Chronic kidney disease, stage III (moderate);Disorders of fl Name Collection Type:: Clean-Voided Midstream Performed By: #### A DDONUAPLUS #### [address] Nitrite,Urine Negative Normal Negative [facility] Comment on above: Order Comment: Reaso n for Exam Chronic kidney disease, stage III (moderate);Disorders of fl Name Collection Type:: Clean-Voided Midstream Performed By: #### A DDONUAPLUS #### [address] Occult Blood,Urine Negative Normal Negative [facility] Comment on above: Order Comment: Reaso n for Exam Chronic kidney disease, stage III (moderate);Disorders of fl Name Collection Type:: Clean-Voided Midstream Performed By: #### A DDONUAPLUS #### [address] pH (U) 6.5 [pH] Normal 5.0-9.0 [facility] Comment on above: Order Comment: Reaso n for Exam Chronic kidney disease, stage III (moderate);Disorders of fl Name Collection Type:: Clean-Voided Midstream Performed By: #### A DDONUAPLUS #### [address] Protein,Urine Negative Normal Negative [facility] Comment on above: Order Comment: Reaso n for Exam Chronic kidney disease, stage III (moderate);Disorders of fl Name Collection Type:: Clean-Voided Midstream Performed By: #### A DDONUAPLUS #### [address] RBC,Urine 5-9 High 0-4 [facility] Comment on above: Order Comment: Reaso n for Exam Chronic kidney disease, stage III (moderate);Disorders of fl Name Collection Type:: Clean-Voided Midstream Performed By: #### A DDONUAPLUS #### [address] Specificy [place],Urine 1.010 Normal 1.001-1.030 [facility] Comment on above: Order Comment: Reaso n for Exam Chronic kidney disease, stage III (moderate);Disorders of fl Name Collection Type:: Clean-Voided Midstream Performed By: #### A DDONUAPLUS #### [address] Squamous Epithelial Cell,Urine 0-1 Normal 0-2 [facility] Comment on above: Order Comment: Reaso n for Exam Chronic kidney disease, stage III (moderate);Disorders of fl Name Collection Type:: Clean-Voided Midstream Performed By: #### A DDONUAPLUS #### [address] Urobilinogen,Urine Normal Normal Normal [facility] Comment on above: Order Comment: Reaso n for Exam Chronic kidney disease, stage III (moderate);Disorders of fl Name Collection Type:: Clean-Voided Midstream Performed By: #### A DDONUAPLUS #### [address] WBC,Urine 1-2 Normal 0-4 [facility] Comment on above: Order Comment: Reaso n for Exam Chronic kidney disease, stage III (moderate);Disorders of fl Name Collection Type:: Clean-Voided Midstream Performed By: #### A DDONUAPLUS #### [address] Erythrocyte distribution wid th Auto (RBC) [Ratio]Ordered By: Anila Granados on 04-30-2023 Erythrocyte distribution width (RBC) [Ratio] 14.9 % 11.9-15.3 [facility] Glucose [Mass/volume] in Ser um or PlasmaOrdered By: Anila Granados on 04-30-2023 Glucose [Mass/Vol] 244 mg/dL 70-100 [facility] Comment on above: ADA recommended refe rence rangeRandom Glucose Reference Range is dependent on time and content of last meal. Glucose of more than 200 mg/dL in a nonstressed, ambulatory subject supports the diagnosis of Diabetes Mellitus. Hematocrit Auto (Bld) [Volum e fraction]Ordered By: Anila Granados on 04-30-2023 Hematocrit (Bld) [Volume fraction] 38.6 % 34.0-46.4 [facility] Hemoglobin [Mass/volume] in BloodOrdered By: Anila Granados on 04-30-2023 Hemoglobin (Bld) [Mass/Vol] 12.7 g/dL 11.8-15.4 [facility] Hemogram CBC Without Diffon 04-30-2023 Erythrocyte distribution width (RBC) [Ratio] 14.9 % Normal 11.9-15.3 [facility] Comment on above: Order Comment: Reaso n for Exam Chronic kidney disease, stage III (moderate);Disorders of fl Performed By: #### C BCNO #### [facility] [address] Hematocrit (Bld) [Volume fraction] 38.6 % Normal 34.0-46.4 [facility] Comment on above: Order Comment: Reaso n for Exam Chronic kidney disease, stage III (moderate);Disorders of fl Performed By: #### C BCNO #### [facility] [address] Hemoglobin (Bld) [Mass/Vol] 12.7 g/dL Normal 11.8-15.4 [facility] Comment on above: Order Comment: Reaso n for Exam Chronic kidney disease, stage III (moderate);Disorders of fl Performed By: #### C BCNO #### [facility] [address] [place] [address] [place] MCH (RBC) [Entitic mass] 31.6 pg Normal 24.7-34.3 [facility] Comment on above: Order Comment: Reaso n for Exam Chronic kidney disease, stage III (moderate);Disorders of fl Performed By: #### C BCNO #### [address] MCV (RBC) [Entitic vol] 96.3 fL Normal 80-100 [facility] Comment on above: Order Comment: Reaso n for Exam Chronic kidney disease, stage III (moderate);Disorders of fl Performed By: #### C BCNO #### [address] Mean Corpuscular HGB Conc 32.8 g/dL Normal 32.0-35.0 [facility] Comment on above: Order Comment: Reaso n for Exam Chronic kidney disease, stage III (moderate);Disorders of fl Performed By: #### C BCNO #### [address] Platelet mean volume (Bld) [Entitic vol] 10.8 fL High 6.3-10.7 [facility] Comment on above: Order Comment: Reaso n for Exam Chronic kidney disease, stage III (moderate);Disorders of fl Result Comment: PERF ORMED BY: [place] [address] PATHOLOGIST [employer] MEERA GRIFFITHS M.D. Performed By: #### C BCNO #### [address] Platelets (Bld) [#/Vol] 164 10*3/uL Normal 150-450 [facility] Comment on above: Order Comment: Reaso n for Exam Chronic kidney disease, stage III (moderate);Disorders of fl Performed By: #### C BCNO #### [address] RBC (Bld) [#/Vol] 4.01 10*6/uL Normal 3.60-5.00 [facility] Comment on above: Order Comment: Reaso n for Exam Chronic kidney disease, stage III (moderate);Disorders of fl Performed By: #### C BCNO #### [facility] [address] WBC (Bld) [#/Vol] 5.2 10*3/uL Normal 3.8-11.6 [facility] Comment on above: Order Comment: Reaso n for Exam Chronic kidney disease, stage III (moderate);Disorders of fl Performed By: #### C BCNO #### [facility] [address] Ketones Auto test strip (U) [Mass/Vol]Ordered By: Anila Granados on 04-30-2023 Ketones (U) [Mass/Vol] Negative Negative [facility] - UrinalysisOrder ed By: Anila Granados on 04-30-2023 Hyaline casts LM Ql (Urine sed) None seen [LPF] 0-8 [facility] Leukocytes [#/volume] correc will for nucleated erythrocytes in Blood by Automated counOrdered By: Anila Granados on 04-30-2023 WBC corrected for nucl RBC Auto (Bld) [#/Vol] 5.2 10*3/uL 3.8-11.6 [facility] MCH Auto (RBC) [Entitic mass ]Ordered By: Anila Granados on 04-30-2023 MCH (RBC) [Entitic mass] 31.6 pg 24.7-34.3 [facility] MCHC Auto (RBC) [Mass/Vol]Or dered By: Anila Granados on 04-30-2023 MCHC (RBC) [Mass/Vol] 32.8 g/dL 32.0-35.0 [facility] MCV Auto (RBC) [Entitic vol] Ordered By: Anila Granados on 04-30-2023 MCV (RBC) [Entitic vol] 96.3 fL 80-100 [facility] Magnesiumon 04-30-2023 Magnesium [Mass/Vol] 1.9 mg/dL Normal 1.9-2.7 [facility] Comment on above: Order Comment: Reaso n for Exam Chronic kidney disease, stage III (moderate);Disorders of fl Performed By: #### U FERNANDO, RENAL, MG, [id number] #### [facility] [address] [place] [id number] [facility] Magnesium [Mass/volume] in S faviola or PlasmaOrdered By: Anila Granados on 04-30-2023 Magnesium [Mass/Vol] 1.9 mg/dL 1.9-2.7 [facility] Nitrite Test strip Ql (U)Ord ered By: Anila Granados on 04-30-2023 Nitrite Ql (U) Negative Negative [facility] No Panel InformationOrdered By: Anila Granados on 04-30-2023 Estimated GFR (CKD-EPI) 40.189 mL/Min [facility] Creatinine Clearance (Chem N/A [facility] Parathyrin.intact [Mass/volu me] in Serum or PlasmaOrdered By: Anila Granados on 04-30-2023 Parathyrin.intact [Mass/Vol] 19.7 pg/mL [facility] Parathyroid Hormone Intacton 04-30-2023 Parathyroid Hormone Intact 19.7 pg/mL Normal [facility] Comment on above: Order Comment: Reaso n for Exam Chronic kidney disease, stage III (moderate);Disorders of fl Result Comment: PERF ORMED BY: [place] [address] PATHOLOGIST [employer] MEERA GRIFFITHS M.D. Performed By: #### P TH #### [facility] [address] [place], [place] [id number] [facility] Phosphate [Mass/volume] in S faviola or PlasmaOrdered By: Anila Granados on 04-30-2023 Phosphate [Mass/Vol] 4.1 mg/dL 2.5-4.5 [facility] Platelet mean volume Auto (B ld) [Entitic vol]Ordered By: Anila Jasmine on 04-30-2023 Platelet mean volume (Bld) [Entitic vol] 10.8 fL 6.3-10.7 [facility] Platelets Auto (Bld) [#/Vol] Ordered By: Anila Jasmine on 04-30-2023 Platelets (Bld) [#/Vol] 164 10*3/uL 150-450 [facility] Potassium [Moles/volume] in Serum or PlasmaOrdered By: Anila Granados on 04-30-2023 Potassium [Moles/Vol] 4.0 mmol/L 3.5-5.1 [facility] Protein Auto test strip (U) [Mass/Vol]Ordered By: Anila Jasmine on 04-30-2023 Protein (U) [Mass/Vol] Negative Negative [facility] Protein Creat Ratio Ur Rando mon 04-30-2023 Creatinine, Urine (Random) 34.0 mg/dL High 11.0-20.0 [facility] Comment on above: Order Comment: Reaso n for Exam Chronic kidney disease, stage III (moderate);Disorders of fl Performed By: #### P ROCRERAT ####[place] [id number] [place] [address] [facility] Protein (U) [Mass/Vol] 4 mg/dL Normal 0-9 [facility] Comment on above: Order Comment: Reaso n for Exam Chronic kidney disease, stage III (moderate);Disorders of fl Performed By: #### P ROCRERAT ####[place] [id number] [facility] Urine Protein/Creatinine Ratio 118 mg/g{Cre} Normal 0-200 [facility] Comment on above: Order Comment: Reaso n for Exam Chronic kidney disease, stage III (moderate);Disorders of fl Result Comment: PERF ORMED BY: [facility] [address] [place] [address] PATHOLOGIST [employer] MEERA GRIFFITHS M.D. Performed By: #### P ROCRERAT ####[address] [address] [place] Protein [Mass/volume] in Uri neOrdered By: Anila Granados on 04-30-2023 Protein (U) [Mass/Vol] 4 mg/dL 0-9 [facility] RBC Auto (Bld) [#/Vol]Ordere d By: Anila Jasmine on 04-30-2023 RBC (Bld) [#/Vol] 4.01 10*6/uL 3.60-5.00 [facility] Renal Function Panelon 04-30 Albumin [Mass/Vol] 3.8 g/dL Normal 3.5-5.7 [facility] Comment on above: Order Comment: Reaso n for Exam Chronic kidney disease, stage III (moderate);Disorders of fl Performed By: #### U FERNANDO, RENAL, MG, [id number] #### [facility] [address] Anion gap [Moles/Vol] 12.5 mmol/L Normal 6.0-15.0 [facility] Comment on above: Order Comment: Reaso n for Exam Chronic kidney disease, stage III (moderate);Disorders of fl Performed By: #### U FERNANDO, RENAL, MG, [id number] #### [facility] [address] Calcium [Mass/Vol] 9.1 mg/dL Normal 8.6-10.3 [facility] Comment on above: Order Comment: Reaso n for Exam Chronic kidney disease, stage III (moderate);Disorders of fl Performed By: #### U FERNANDO, RENAL, MG, [id number] #### [facility] [address] Chloride [Moles/Vol] 102 mmol/L Normal 98-107 [facility] Comment on above: Order Comment: Reaso n for Exam Chronic kidney disease, stage III (moderate);Disorders of fl Performed By: #### U FERNANDO, RENAL, MG, [id number] #### [facility] [address] [place] [id number] [place] CO2 [Moles/Vol] 31.5 mmol/L High 21.0-31.0 [facility] Comment on above: Order Comment: Reaso n for Exam Chronic kidney disease, stage III (moderate);Disorders of fl Performed By: #### U FERNANDO, RENAL, MG, [id number] #### [facility] [address] Creatinine [Mass/Vol] 1.53 mg/dL High 0.60-1.20 [facility] Comment on above: Order Comment: Reaso n for Exam Chronic kidney disease, stage III (moderate);Disorders of fl Performed By: #### U FERNANDO, RENAL, MG, [id number] #### [place] [address] [place] GFR/1.73 sq M.predicted MDRD (S/P/Bld) [Vol rate/Area] 40.189 mL/min/{1.73_m2} [facility] Comment on above: Order Comment: Reaso n for Exam Chronic kidney disease, stage III (moderate);Disorders of fl Performed By: #### U FERNANDO, RENAL, MG, [id number] #### [address] Glucose [Mass/Vol] 244 mg/dL High 70-100 [facility] Comment on above: Order Comment: Reaso n for Exam Chronic kidney disease, stage III (moderate);Disorders of fl Result Comment: [facility] Glucose Reference Range is dependent on time and content of last meal. Glucose of more than 200 mg/dL in a nonstressed, ambulatory subject supports the diagnosis of Diabetes Mellitus. ADA recommended reference range Performed By: #### U FERNANDO, RENAL, MG, [id number] #### [address] Phosphate [Mass/Vol] 4.1 mg/dL Normal 2.5-4.5 [facility] Comment on above: Order Comment: Reaso n for Exam Chronic kidney disease, stage III (moderate);Disorders of fl Performed By: #### U FERNANDO, RENAL, MG, [id number] #### [place] [address] [place] Potassium [Moles/Vol] 4.0 mmol/L Normal 3.5-5.1 [facility] Comment on above: Order Comment: Reaso n for Exam Chronic kidney disease, stage III (moderate);Disorders of fl Performed By: #### U FERNANDO, RENAL, MG, [id number] #### [place] [address] [place] Sodium [Moles/Vol] 142 mmol/L Normal 136-145 [facility] Comment on above: Order Comment: Reaso n for Exam Chronic kidney disease, stage III (moderate);Disorders of fl Performed By: #### U FERNANDO, RENAL, MG, [id number] #### [facility] [address] Urea nitrogen [Mass/Vol] 46 mg/dL High 12-24 [facility] Comment on above: Order Comment: Reaso n for Exam Chronic kidney disease, stage III (moderate);Disorders of fl Performed By: #### U FERNANDO, RENAL, MG, [id number] #### [facility] [address] Serum or plasma anion gap de terminationOrdered By: Anila Jasmine on 04-30-2023 Anion gap [Moles/Vol] 12.5 mmol/L 6.0-15.0 [facility] Sodium [Moles/volume] in Ser um or PlasmaOrdered By: Anila Jasmine on 04-30-2023 Sodium [Moles/Vol] 142 mmol/L 136-145 [facility] Specific gravity Auto test s trip (U) [Rel density]Ordered By: Anila Jasmine on 04-30-2023 Specific gravity (U) [Rel density] 1.010 1.001-1.030 [facility] Squamous epithelial cells de tection in urine sediment by light microscopyOrdered By: Anila Jasmine on 04-30-2023 Epithelial cells.squamous LM Ql (Urine sed) 0-1 [HPF] 0-2 [facility] Urate [Mass/volume] in Serum or PlasmaOrdered By: Anila Jasmine on 04-30-2023 Urate [Mass/Vol] 5.8 mg/dL 2.3-6.6 [facility] Urea nitrogen [Mass/volume] in Serum or PlasmaOrdered By: Anila Jasmine on 04-30-2023 Urea nitrogen [Mass/Vol] 46 mg/dL 12-24 [facility] Uric Acidon 04-30-2023 Urate [Mass/Vol] 5.8 mg/dL Normal 2.3-6.6 [facility] Comment on above: Order Comment: Reaso n for Exam Chronic kidney disease, stage III (moderate);Disorders of fl Performed By: #### U FERNANDO, RENAL, MG, [id number] #### [facility] [address] Urine bacteria detection by automated methodOrdered By: Anila Granados on 04-30-2023 Bacteria Auto Ql (U) None seen None Seen [facility] Urine clarity by refractomet ry automatedOrdered By: Anila Granados on 04-30-2023 Clarity Refractometry automated (U) Clear Clear [facility] Urine glucose measurement by automated test strip (mass/volume)Ordered By: Anila Granados on 04-30-2023 Glucose Auto test strip (U) [Mass/Vol] Normal mg/dL Normal [facility] Urine hemoglobin detection b y automated test stripOrdered By: Anila Granados on 04-30-2023 Hemoglobin Auto test strip Ql (U) Negative Negative [facility] Urine leukocyte esterase det ection by automated test stripOrdered By: Anila Granados on 04-30-2023 Leukocyte esterase Auto test strip Ql (U) 1+ Negative [facility] Urine protein/creatinine rat ioOrdered By: Anila Granados on 04-30-2023 Protein/Creatinine (U) [Ratio] 118 mg/g{Cre} 0-200 [facility] Urobilinogen Auto test strip (U) [Mass/Vol]Ordered By: Anila Granados on 04-30-2023 Urobilinogen (U) [Mass/Vol] Normal mg/dL Normal [facility] Vitamin D 25 Hydroxy Totalon 04-30-2023 Vitamin D 25 Hydroxy Total 68.6 ng/mL Normal 30-100 [facility] Comment on above: Order Comment: Reaso n for Exam Chronic kidney disease, stage III (moderate);Disorders of fl Result Comment: GAYATRI MIN D STATUS 25(OH)VITAMIN D RANGE (ng/mL) Deficient <20 Insufficient 20 to <30 Sufficient 30 to 100 Reference: Amilcar MF,Milo NC, Adrián TELLEZ, et al. Evaluation,treatment, and prevention of vitamin D deficiency; an Endocrine Society clinical practice guideline. JCEM. 2010; 96(7):191-. PERFORMED BY: [place] [address] PATHOLOGIST [employer] MEERA GRIFFITHS M.D. Performed By: #### U FERNANDO, RENAL, MG, [id number] #### [address] Vitamin D+Metabolites [Mass/ volume] in Serum or PlasmaOrdered By: Anila Granados on 04-30-2023 Vitamin D+Metabolites [Mass/Vol] 68.6 ng/mL 30-100 [facility] Comment on above: VITAMIN D STATUS 25( OH)VITAMIN D RANGE (ng/mL) Deficient <20 Insufficient 20 to <30Sufficient 30 to 100Reference: Amilcar MF,Milo PENA, Adrián TELLEZ, et al. Evaluation,treatment, and prevention of vitamin D deficiency; an Endocrine Society clinical practice guideline. JCEM. 2010; 96(7):1911-30. pH Auto test strip (U)Ordere d By: Anila Granados on 04-30-2023 pH (U) 6.5 [pH] 5.0-9.0 [facility] XR knee LT 2Von 09-23-2022 XR knee LT 2V [facility] [place] [address] [place] [address] XRay Report Signed Patient: Amadou Suarez MR#: [id number] : 1970 Acct:[id number] Age/Sex: 52 / F ADM Date: 09/23/22 Loc: [facility] Room: Type: [facility] Attending Dr: Arthur Moy MD Copies to: [...] Kim Coleman M.D.09/23/2022 5:10 PM Dictation Location: [place] [address] Transcribed By: [facility] 09/23/221709 Dictated By: Kim Coleman MD 09/23/221707 Signed By: 09/23/221709 [facility] XR cerv spine AP/LAT/FLX/EXT on 08-19-2022 XR cerv spine AP/LAT/FLX/EXT [facility] [place] [address] [place] [address] XRay Report Signed Patient: Amadou Suarez MR#: [id number] : 1970 Acct:[id number] Age/Sex: 52 / F ADM Date: 08/19/22 Loc: [facility] [place] Room: Type: [facility] Attending Dr: Arthur Moy MD Copies to: [...] 4:48 PM Dictation Location: [facility]--01 Transcribed By: BRITT 08/19/221647 Dictated By: Mihai Jackson DO 08/19/221646 Signed By: 08/19/221647 [facility] XR shoulder RT min 2V*on XR shoulder RT min 2V* [facility] [place] [address] [place] [address] XRay Report Signed Patient: Amadou Suarez MR#: [id number] : 1970 Acct:[id number] Age/Sex: 52 / F ADM Date: 08/19/22 Loc: [facility] [place] Room: Type: [facility] Attending Dr: Arthur Moy MD Copies to: [...] Mihai Jackson M.D.08/19/2022 4:46 PM Dictation Location: [facility] Transcribed By: BRITT 08/19/221645 Dictated By: Mihai Jackson DO 08/19/221643 Signed By: 08/19/221645 [facility] PTH INTACTon 08-14-2022 PTH, Intact 12 pg/mL Critically low 15-65 [facility] Comment on above: Performed By: #### I NSULIN #### [facility] [address] [place] [address] Dr. Jose Mckinney HEMOGRAM AND PLATELon 2022 Hematocrit (Bld) [Volume fraction] 38.7 % Normal 36.0-48.0 [facility] Comment on above: Performed By: #### U RTPCR #### [facility] [address] [place] [address] Dr. Jose Mckinney Hemoglobin (Bld) [Mass/Vol] 12.7 g/dL Normal 12.0-16.0 [facility] Comment on above: Performed By: #### U RTPCR #### [facility] [address] [place] [address] Dr. Jose Mckinney MCH (RBC) [Entitic mass] 30.5 pg Normal 26.7-34.0 [facility] Comment on above: Performed By: #### U RTPCR #### [facility] [address] [place] [address] Dr. Jose Mckinney MCHC (RBC) [Mass/Vol] 32.8 g/dL Normal 29.9-35.2 [facility] Comment on above: Performed By: #### U RTPCR #### [facility] [address] [place] [address] Dr. Jose Mckinney MCV (RBC) [Entitic vol] 92.8 fL Normal 81.0-99.0 [facility] Comment on above: Performed By: #### U RTPCR #### [facility] [address] [place] [address] Dr. Jose Mckinney PLT 223 103/ul Normal 150-450 [facility] Comment on above: Performed By: #### U RTPCR #### [facility] [address] [place] [address] Dr. Jose Mckinney RBC 4.17 106/ul Critically low 4.20-5.40 [facility] Comment on above: Performed By: #### U RTPCR #### [facility] [address] [place] [address] Dr. Jose Mciknney WBC 7.0 103/ul Normal 4.0-11.0 [facility] Comment on above: Performed By: #### U RTPCR #### [facility] [address] [place] [address] Dr. Jose Mckinney MAGNESIUMon 08-13-2022 Magnesium [Mass/Vol] 1.9 mg/dL Normal 1.8-2.4 [facility] Comment on above: Performed By: #### U FERNANDO, RENAL, MG #### [facility] [address] [place] [address] [address] Jose Mckinney RENAL FUNCTION PANELon 08-13 Albumin [Mass/Vol] 3.6 g/dL Normal 3.4-5.0 [facility] Comment on above: Performed By: #### U FERNANDO, RENAL, MG #### [facility] [address] [place] [address] Dr. Jose Mckinney Calcium [Mass/Vol] 9.3 mg/dL Normal 8.5-10.1 [facility] Comment on above: Performed By: #### U FERNANDO, RENAL, MG #### [facility] [address] [place] [address] Dr. Jose Mckinney Chloride [Moles/Vol] 104 mmol/L Normal 98-107 [facility] Comment on above: Performed By: #### U FERNANDO, RENAL, MG #### [facility] [address] [place] [address] Dr. Jose Mckinney CO2 [Moles/Vol] 28.3 mmol/L Normal 21.0-32.0 [facility] Comment on above: Performed By: #### U FERNANDO, RENAL, MG #### [facility] [address] [place] [address] Dr. Jose Mckinney Creatinine [Mass/Vol] 1.34 mg/dL Critically high 0.55-1.02 [facility] Comment on above: Performed By: #### U FERNANDO, RENAL, MG #### [facility] [address] [place] [address] Dr. Jose Mckinney EGFR-AF MOROCCAN 50 mL/min/1.73m2 Critically low >=60 [facility] Comment on above: Performed By: #### U FERNANDO, RENAL, MG #### [facility] [address] [place] [address] Dr. Jose Mckinney EGFR-NON AF MOROCCAN 41 mL/min/1.73m2 Critically low >=60 [facility] Comment on above: Performed By: #### U FERNANDO, RENAL, MG #### [facility] [address] [place], [place] [id number] Dr. Jose Mckinney Glucose [Mass/Vol] 226 mg/dL Critically high 74-106 [facility] Comment on above: Performed By: #### U FERNANDO, RENAL, MG #### [facility] [address] [place] [address] Dr. Jose Mckinney Phosphate [Mass/Vol] 4.6 mg/dL Normal 2.6-4.7 [facility] Comment on above: Performed By: #### U FERNANDO, RENAL, MG #### [facility] [address] [place] [address] Dr. Jose Mckinney Potassium [Moles/Vol] 4.4 mmol/L Normal 3.5-5.1 [facility] Comment on above: Performed By: #### U FERNANDO, RENAL, MG #### [facility] [address] [place] [address] Dr. Jose Mckinney Sodium [Moles/Vol] 138 mmol/L Normal 136-145 [facility] Comment on above: Performed By: #### U FERNANDO, RENAL, MG #### [facility] [address] [place] [address] Dr. Jose Mckinney Urea nitrogen [Mass/Vol] 27.0 mg/dL Critically high 7.0-18 .0 [facility] Comment on above: Performed By: #### U FERNANDO, RENAL, MG #### [facility] [address] [place] [address] Dr. Jose Mckinney UA RANDOM W/MICROSCOPICon BACTERIA NONE SEEN Normal NONE SEEN [facility] Comment on above: Performed By: #### U AMIC #### [facility] [address] [place] [address] Dr. Jose Mckinney Bilirubin Ql (U) Negative Normal NEGATIVE [facility] Comment on above: Performed By: #### U AMIC #### [facility] [address] [place] [address] Dr. Jose Mckinney CAST NONE SEEN Normal NONE SEEN [facility] Comment on above: Performed By: #### U AMIC #### [facility] [address] [place] [address] Dr. Jose Mckinney Clarity (U) CLEAR Normal CLEAR [facility] Comment on above: Performed By: #### U AMIC #### [facility] [address] [place] [address] Dr. Jose Mckinney Color (U) YELLOW Normal YELLOW [facility] Comment on above: Performed By: #### U AMIC #### [facility] [address] [address] [address] Jose Mckinney Crystals LM Nom (Urine sed) NONE SEEN Normal NONE SEEN [facility] Comment on above: Performed By: #### U AMIC #### [facility] [address] [address] [address] Jose Mckinney Epithelial cells LM Ql (Urine sed) NONE SEEN Normal NONE SEEN /RARE [facility] Comment on above: Performed By: #### U AMIC #### [facility] [address] [place] [address] Dr. Jose Mckinney Glucose Ql (U) 250 mg/dl Abnormal NEGATIVE [facility] Comment on above: Performed By: #### U AMIC #### [facility] [address] [place] [address] Dr. Jose Mckinney Hemoglobin Ql (U) Negative Normal NEGATIVE [facility] Comment on above: Performed By: #### U AMIC #### [facility] [address] [place] [address] Dr. Jose Mckinney Ketones Ql (U) Negative Normal NEGATIVE [facility] Comment on above: Performed By: #### U AMIC #### [facility] [address] [place] [address] Dr. Jose Mckinney LEUKOCYTES Negative Normal NEGATIVE [facility] Comment on above: Performed By: #### U AMIC #### [facility] [address] [place] [address] [address] Jose Mckinney MUCOUS NONE SEEN Normal NONE SEEN [facility] Comment on above: Performed By: #### U AMIC #### [facility] [address] [place] [address] Dr. Jose Mckinney Nitrite Ql (U) Negative Normal NEGATIVE [facility] Comment on above: Performed By: #### U AMIC #### [facility] [address] [place] [address] [address] Jose Mckinney pH (U) 6.5 [pH] Normal 5-9 [facility] Comment on above: Performed By: #### U AMIC #### [facility] [address] [place] [address] Dr. Jose Mckinney RBC 0-2 Normal 0-2 [facility] Comment on above: Performed By: #### U AMIC #### [facility] [address] [place] [address] Dr. Jose Mckinney SPEC GRAVITY 1.020 Normal 1.005-<=1.02 5 [facility] Comment on above: Performed By: #### U AMIC #### [facility] [address] [place] [address] Dr. Jose Mckinney UA PROTEIN Negative Normal NEGATIVE/ TRACE [facility] Comment on above: Performed By: #### U AMIC #### [facility] [address] [place] [address] Dr. Jose Mkcinney Urobilinogen Qn (U) 0.2 {Betsy'U}/dL Normal 0.2 - 1. 0 [facility] Comment on above: Performed By: #### U AMIC #### [facility] [address] [place] [address] Dr. Jose Mckinney WBC NONE SEEN Normal NONE SEEN [facility] Comment on above: Performed By: #### U AMIC #### [facility] [address] [place] [address] Dr. Jose Mckinney URIC ACID SERUMon 08-13-2022 Urate [Mass/Vol] 4.1 mg/dL Normal 2.6-6.0 [facility] Comment on above: Performed By: #### U FERNANDO, RENAL, MG #### [facility] [address] [place] [address] Dr. Jose Mckinney URINE T PROTEIN CREAT RATIOo n 08-13-2022 Protein (U) [Mass/Vol] 13.5 mg/dL Critically high <=12.0 [facility] Comment on above: Performed By: #### U RTPCR #### [facility] [address] [place] [address] Dr. Jose Mckinney UR PROT CREAT RAT 0.16 Normal [facility] Comment on above: Performed By: #### U RTPCR #### [facility] [address] [place] [address] Dr. Jose Mckinney URINE CREAT 83.00 mg/dL Normal 20.00-300.00 [facility] Comment on above: Performed By: #### U RTPCR #### [facility] [address] [place] [address] Dr. Jose Mckinney VITAMIN D 25 OHon 08-13-2022 VIT D 25-OH 54.4 ng/mL Normal [facility] Comment on above: Performed By: #### C BC #### [facility] [address] [place] [address] Dr. Jose Mckinney VIT D RANGES SEE BELOW Normal [facility] Comment on above: Result Comment: <20 ng/mL Vit D deficient 20 - <30 ng/mL Vit D insufficient 30 - 100 ng/mL Vit D sufficient >100 ng/mL Potential Toxicity Performed By: #### C BC #### [facility] [address] [place] [address] Dr. Jose Mckinney [facility]02 SARS-CoV-2 (COVID-19) RNA CHILO+probe Ql (Unsp spec) Not detected Normal NOT DETECTED [facility] Comment on above: Result Comment: This test is not yet approved or cleared by the [place] FDA. When there are no FDA-approved or cleared tests available, and other criteria are met, FDA can make tests available under an emergency access mechanism called an Emergency Use Authorization (EUA). The EUA for this test is supported by the [employer] Worker of Health and Human Service's (HHS's) declaration [...] SARS-CoV-2. Performed By: #### C BC #### [facility] [address] [place] [address] Dr. Jose Mckinney INFLUENZA A AND B AGon 05-13 [facility] SEE BELOW Normal [facility] Comment on above: Result Comment: Nega tive for Flu A protein angiten. Infection due to Flu A cannot be ruled out. Flu A angiten in the sample may be below the detection limit of the test. Performed By: #### C BC #### [facility] [address] [place] [address] Dr. Jose Mckinney INFLUBNEG SEE BELOW Normal [facility] Comment on above: Result Comment: Nega tive for Flu B protein antigen. Infection due to Flu B cannot be ruled out. Flu B antigen in the sample may be below the detection limit of the test. Performed By: #### C BC #### [facility] [address] [place] [address] Dr. Jose Mckinney INFLUENZA A AG Negative Normal NEGATIVE SEE COMMENT [facility] Comment on above: Performed By: #### C BC #### [facility] [address] [place] [address] Dr. Jose Mckinney INFLUENZA B AG Negative Normal NEGATIVE SEE COMMENT [facility] Comment on above: Performed By: #### C BC #### [facility] [address] [place] [address] Dr. Jose Mckinney INTERNAL CONTROLS Within Normal Limits Normal Wi thin Normal Limits [facility] Comment on above: Performed By: #### C BC #### [facility] [address] [place] [address] Dr. Jose Mckinney INSULINon 02-07-2022 Insulin 191.0 uIU/mL Critically high 2.6-24.9 [facility] Comment on above: Performed By: #### I NSULIN #### [facility] [address] [place] [address] Dr. Jose Mckinney PTH INTACTon 02-07-2022 PTH, Intact 13 pg/mL Critically low 15-65 [facility] Comment on above: Performed By: #### C BC #### [facility] [address] [address] [address] Jose Mckinney T4, T3U, FTI [facility] 02-07 Free Thyroxine Index 2.3 Normal 1.2-4.9 [facility] Comment on above: Performed By: #### C BC #### [facility] [address] [address] [address] Jose Mckinney T3 Uptake 23 % Critically low 24-39 [facility] Comment on above: Performed By: #### C BC #### [facility] [address] [address] [address] Jose Mckinney T4 [Mass/Vol] 10.2 ug/dL Normal 4.5-12.0 [facility] Comment on above: Performed By: #### C BC #### [facility] [address] [address] [address] Jose Mckinney VIT D 25-OH [facility] 2021 Vitamin D, 25-Hydroxy 43.3 ng/mL Normal 30.0-100.0 [facility] Comment on above: Result Comment: Gayatri min D deficiency has been defined by the [place] of [employer] and an Endocrine Society practice guideline as a level of serum 25-OH vitamin D less than 20 ng/mL (1,2). The Endocrine Society went on to further define vitamin D insufficiency as a level between 21 and 29 ng/mL (2). 1. IOM ([place] of [employer]). 2010. Dietary reference intakes for calcium and D. [place]: The National Academies Press. 2. Amilcar MF, Milo NC, Adrián TELLEZ, et al. Evaluation, treatment, and prevention of vitamin D deficiency: an Endocrine Society clinical practice guideline. JCEM. 2010; 96(7):1911-30. Performed By: #### C BC #### [facility] [address] [address] [address] Jose Mckinney CBC AUTO DIFFon 02-06-2022 BASO # 0.0 103/ul Normal 0.0-0.1 [facility] Comment on above: Performed By: #### U RTPCR #### [facility] [address] [place] [address] Dr. Jose Mckinney Basophils/100 WBC (Bld) 0.5 % Normal 0.2-2.0 [facility] Comment on above: Performed By: #### U RTPCR #### [facility] [address] [place] [address] Dr. Jose Mckinney EO # 0.5 103/ul Normal 0.0-0.7 [facility] Comment on above: Performed By: #### U RTPCR #### [facility] [address] [place] [address] Dr. Jose Mckinney Eosinophils/100 WBC (Bld) 8.0 % Critically high 0.9-7.0 [facility] Comment on above: Performed By: #### U RTPCR #### [facility] [address] [place] [address] Dr. Jose Mckinney Erythrocyte distribution width (RBC) [Ratio] 13.6 % Normal 11.0-15.0 [facility] Comment on above: Performed By: #### U RTPCR #### [facility] [address] [place] [address] Dr. Jose Mckinney Hematocrit (Bld) [Volume fraction] 42.5 % Normal 36.0-48.0 [facility] Comment on above: Performed By: #### U RTPCR #### [facility] [address] [place] [address] Dr. Jose Mckinney Hemoglobin (Bld) [Mass/Vol] 13.8 g/dL Normal 12.0-16.0 [facility] Comment on above: Performed By: #### U RTPCR #### [facility] [address] [place] [address] Dr. Jose Mckinney IG # 0.02 10e3/ul Normal 0.00-0.03 [facility] Comment on above: Performed By: #### U RTPCR #### [facility] [address] [place] [address] Dr. Jose Mckinney IG % 0.3 % Normal 0.0-0.5 [facility] Comment on above: Performed By: #### U RTPCR #### [facility] [address] [place] [address] Dr. Jose Mckinney LYMPH # 1.5 103/ul Normal 1.2-3.8 [facility] Comment on above: Performed By: #### U RTPCR #### [facility] [address] [place] [address] Dr. Jose Mckinney Lymphocytes/100 WBC (Bld) 25.3 % Normal 20.5-60.0 [facility] Comment on above: Performed By: #### U RTPCR #### [facility] [address] [place] [address] Dr. Jose Mckinney MANUAL DIFF REQ NO Normal [facility] Comment on above: Performed By: #### U RTPCR #### [facility] [address] [place] [address] Dr. Jose Mckinney MCH (RBC) [Entitic mass] 30.1 pg Normal 26.7-34.0 [facility] Comment on above: Performed By: #### U RTPCR #### [facility] [address] [place] [address] Dr. Jose Mckinney MCHC (RBC) [Mass/Vol] 32.5 g/dL Normal 29.9-35.2 [facility] Comment on above: Performed By: #### U RTPCR #### [facility] [address] [place] [address] Dr. Jose Mckinney MCV (RBC) [Entitic vol] 92.6 fL Normal 81.0-99.0 [facility] Comment on above: Performed By: #### U RTPCR #### [facility] [address] [place] [address] Dr. Jose Mckinney MONO # 0.4 103/ul Normal 0.3-0.8 [facility] Comment on above: Performed By: #### U RTPCR #### [facility] [address] [place] [address] Dr. Jose Mckinney Monocytes/100 WBC (Bld) 6.4 % Normal 1.7-12.0 [facility] Comment on above: Performed By: #### U RTPCR #### [facility] [address] [place] [address] Dr. Jose Mckinney NEUT # 3.6 103/ul Normal 1.4-6.5 [facility] Comment on above: Performed By: #### U RTPCR #### [facility] [address] [place] [address] Dr. Jose Mckinney Neutrophils/100 WBC (Bld) 59.5 % Normal 43.0-75.0 [facility] Comment on above: Performed By: #### U RTPCR #### [facility] [address] [place] [address] Dr. Jose Mckinney Platelet mean volume (Bld) [Entitic vol] 11.8 fL Normal 9.5-13.5 [facility] Comment on above: Performed By: #### U RTPCR #### [facility] [address] [place] [address] Dr. Jose Mckinney PLT 175 103/ul Normal 150-450 [facility] Comment on above: Performed By: #### U RTPCR #### [facility] [address] [place] [address] Dr. Jose Mckinney RBC 4.59 106/ul Normal 4.20-5.40 [facility] Comment on above: Performed By: #### U RTPCR #### [facility] [address] [place] [address] Dr. Jose Mckinney WBC 6.1 103/ul Normal 4.0-11.0 [facility] Comment on above: Performed By: #### U RTPCR #### [facility] [address] [place] [address] Dr. Jose Mckinney GLYCOHEMOGLOBIN A1Con 2021 ADA RECOMMENDATION SEE BELOW Normal [facility] Comment on above: Result Comment: ADA RECOMMENDED LIMIT 4.0 - 6.0 ADA THERAPEUTIC TARGET < 7.0 ACTION SUGGESTED > 7.0 Performed By: #### U RTPCR #### [facility] [address] [address] [address] Jose Mckinney Glucose [Mass/Vol] 209 mg/dL Normal [facility] Comment on above: Performed By: #### U RTPCR #### [facility] [address] [address] [address] Jose Mckinney HbA1c (Bld) [Mass fraction] 8.9 % Critically high 4.5-6.2 [facility] Comment on above: Performed By: #### U RTPCR #### [facility] [address] [address] [address] Jose Mckinney IRONon 02-06-2022 Iron [Mass/Vol] 55.0 ug/dL Normal 50.0-170.0 [facility] Comment on above: Performed By: #### C BC #### [facility] [address] [place] [address] Dr. Jose Mckinney LIPID PROFILEon 02-06-2022 CHOL-HDL RATIO NORM SEE BELOW Normal [facility] Comment on above: Result Comment: 3.3 - 4.4 LOW RISK 4.4 - 7.1 AVERAGE RISK 7.1 - 11.0 MODERATE RISK >11.0 HIGH RISK Performed By: #### T SH, CMP, LIPID #### [facility] [address] [place] [address] Dr. Jose Mckinney Cholesterol [Mass/Vol] 215 mg/dL Critically high <=200 [facility] Comment on above: Performed By: #### T SH, CMP, LIPID #### [facility] [address] [place] [address] Dr. Jose Mckinney Cholesterol in HDL [Mass/Vol] 32 mg/dL Critically low 40-60 [facility] Comment on above: Performed By: #### T SH, CMP, LIPID #### [facility] [address] [place] [address] Dr. Jose Mckinney Cholesterol in LDL [Mass/Vol] 118.4 mg/dL Normal [facility] Comment on above: Performed By: #### T SH, CMP, LIPID #### [facility] [address] [place] [address] Dr. Jose Mckinney Cholesterol.total/Choles terol in HDL [Mass ratio] 6.7 {ratio} Normal [facility] Comment on above: Performed By: #### T SH, CMP, LIPID #### [facility] [address] [place] [address] Dr. Jose Mckinney HDL NORMAL > or = 60 mg/dl - LOW CARDIOVASCULAR RISK <40 mg/dl - HIGH CARDIOVASCULAR RISK Normal [facility] Comment on above: Performed By: #### T SH, CMP, LIPID #### [facility] [address] [place] [address] Dr. Jose Mckinney LDL CALC NORMAL SEE BELOW Normal [facility] Comment on above: Result Comment: <100 mg/dl OPTIMAL 100 - 129 mg/dl NEAR OR ABOVE OPTIMAL 130 - 159 mg/dl BORDERLINE HIGH 160 - 189 mg/dl HIGH >190 mg/dl VERY HIGH Performed By: #### T SH, CMP, LIPID #### [facility] [address] [place] [address] Dr. Jose Mckinney Triglyceride [Mass/Vol] 323 mg/dL Critically high <=150 [facility] Comment on above: Performed By: #### T SH, CMP, LIPID #### [facility] [address] [place] [address] Dr. Jose Mckinney VLDL CALC 64.6 mg/dL Normal [facility] Comment on above: Performed By: #### T SH, CMP, LIPID #### [facility] [address] [place] [address] Dr. Jose Mckinney MAGNESIUMon 02-06-2022 Magnesium [Mass/Vol] 1.8 mg/dL Normal 1.8-2.4 [facility] Comment on above: Performed By: #### U RTPCR #### [facility] [address] [place] [address] Dr. Jose Mckinney PHOSPHORUSon 02-06-2022 Phosphate [Mass/Vol] 4.1 mg/dL Normal 2.6-4.7 [facility] Comment on above: Performed By: #### U RTPCR #### [facility] [address] [place] [address] Dr. Jose Mckinney PROF 14(COMP METB)on 022 Albumin [Mass/Vol] 3.6 g/dL Normal 3.4-5.0 [facility] Comment on above: Performed By: #### T SH, CMP, LIPID #### [facility] [address] [address] [address] Jose Mckinney Albumin/Globulin [Mass ratio] 0.9 {ratio} Normal [facility] Comment on above: Performed By: #### T SH, CMP, LIPID #### [facility] [address] [address] [address] Jose Mckinney ALP [Catalytic activity/Vol] 70 U/L Normal 46-116 [facility] Comment on above: Performed By: #### T SH, CMP, LIPID #### [facility] [address] [address] [address] Jose Mckinney ALT [Catalytic activity/Vol] 38 U/L Normal 14-59 [facility] Comment on above: Performed By: #### T SH, CMP, LIPID #### [facility] [address] [address] [address] Jose Mckinney Anion gap [Moles/Vol] 11.9 mmol/L Normal [facility] Comment on above: Performed By: #### T SH, CMP, LIPID #### [facility] [address] [address] [address] Jose Mckinney AST [Catalytic activity/Vol] 19 U/L Normal 15-37 [facility] Comment on above: Performed By: #### T SH, CMP, LIPID #### [facility] [address] [address] [address] Jose Mckinney Bilirubin [Mass/Vol] 0.3 mg/dL Normal 0.2-1.0 [facility] Comment on above: Performed By: #### T SH, CMP, LIPID #### [facility] [address] [address] [address] Jose Mckinney Calcium [Mass/Vol] 9.3 mg/dL Normal 8.5-10.1 [facility] Comment on above: Performed By: #### T SH, CMP, LIPID #### [facility] [address] [address] [address] Jose Mckinney Chloride [Moles/Vol] 104 mmol/L Normal 98-107 [facility] Comment on above: Performed By: #### T SH, CMP, LIPID #### [facility] [address] [address] [address] Jose Mckinney CO2 [Moles/Vol] 29.1 mmol/L Normal 21.0-32.0 [facility] Comment on above: Performed By: #### T SH, CMP, LIPID #### [facility] [address] [address] [address] Jose Mckinney Creatinine [Mass/Vol] 1.31 mg/dL Critically high 0.55-1.02 [facility] Comment on above: Performed By: #### T SH, CMP, LIPID #### [facility] [address] [address] [address] Jose Mckinney EGFR-AF MOROCCAN 51 mL/min/1.73m2 Critically low >=60 [facility] Comment on above: Performed By: #### T SH, CMP, LIPID #### [facility] [address] [address] [address] Jose Mckinney EGFR-NON AF MOROCCAN 42 mL/min/1.73m2 Critically low >=60 [facility] Comment on above: Performed By: #### T SH, CMP, LIPID #### [facility] [address] [address] [address] Jose Mckinney Globulin (S) [Mass/Vol] 3.9 g/dL Normal [facility] Comment on above: Performed By: #### T SH, CMP, LIPID #### [facility] [address] [address] [address] Jose Mckinney Glucose [Mass/Vol] 185 mg/dL Critically high 74-106 [facility] Comment on above: Performed By: #### T SH, CMP, LIPID #### [facility] [address] [address] [address] Jose Mckinney Potassium [Moles/Vol] 4.0 mmol/L Normal 3.5-5.1 [facility] Comment on above: Performed By: #### T SH, CMP, LIPID #### [facility] [address] [place] [address] Dr. Jose Mckinney Protein [Mass/Vol] 7.5 g/dL Normal 6.4-8.2 [facility] Comment on above: Performed By: #### T SH, CMP, LIPID #### [facility] [address] [place] [address] Dr. Jose Mckinney Sodium [Moles/Vol] 141 mmol/L Normal 136-145 [facility] Comment on above: Performed By: #### T MIGUEL ÁNGEL CMP, LIPID #### [facility] [address] [place] [address] Dr. Jose Mckinney Urea nitrogen [Mass/Vol] 20.0 mg/dL Critically high 7.0-18 .0 [facility] Comment on above: Performed By: #### T MIGUEL ÁNGEL CMP, LIPID #### [facility] [address] [place] [address] Dr. Jose Mckinney Urea nitrogen/Creatinine [Mass ratio] 15.3 mg/mg Normal [facility] Comment on above: Performed By: #### T MIGUEL ÁNGEL CMP, LIPID #### [facility] [address] [place] [address] Dr. Jose Mckinney TSHon 02-06-2022 TSH 2.011 uIU/mL Normal 0.358-3.740 [facility] Comment on above: Performed By: #### T MIGUEL ÁNGEL, CMP, LIPID #### [facility] [address] [place] [address] Dr. Jose Mckinney UA RANDOM W/MICROSCOPICon BACTERIA NONE SEEN Normal NONE SEEN [facility] Comment on above: Performed By: #### U RTPCR #### [facility] [address] [place] [address] Dr. Jose Mckinney Bilirubin Ql (U) Negative Normal NEGATIVE [facility] Comment on above: Performed By: #### U RTPCR #### [facility] [address] [place] [address] Dr. Jose Mckinney CAST NONE SEEN Normal NONE SEEN [facility] Comment on above: Performed By: #### U RTPCR #### [facility] [address] [place] [address] Dr. Jose Mckinney Clarity (U) CLEAR Normal CLEAR [facility] Comment on above: Performed By: #### U RTPCR #### [facility] [address] [place] [address] Dr. Jose Mckinney Color (U) LT. YELLOW Normal YELLOW [facility] Comment on above: Performed By: #### U RTPCR #### [facility] [address] [place] [address] Dr. Jose Mckinney Crystals LM Nom (Urine sed) NONE SEEN Normal NONE SEEN [facility] Comment on above: Performed By: #### U RTPCR #### [facility] [address] [place] [address] Dr. Jose Mckinney Epithelial cells LM Ql (Urine sed) RARE Normal NONE SEEN /RARE [facility] Comment on above: Performed By: #### U RTPCR #### [facility] [address] [place] [address] Dr. Jose Mckinney Glucose Ql (U) Negative Normal NEGATIVE [facility] Comment on above: Performed By: #### U RTPCR #### [facility] [address] [place] [address] Dr. Jose Mckinney Hemoglobin Ql (U) Negative Normal NEGATIVE [facility] Comment on above: Performed By: #### U RTPCR #### [facility] [address] [place] [address] Dr. Jose Mckinney Ketones Ql (U) Negative Normal NEGATIVE [facility] Comment on above: Performed By: #### U RTPCR #### [facility] [address] [place] [address] Dr. Jose Mckinney LEUKOCYTES Negative Normal NEGATIVE [facility] Comment on above: Performed By: #### U RTPCR #### [facility] [address] [place] [address] Dr. Jose Mckinney MUCOUS NONE SEEN Normal NONE SEEN [facility] Comment on above: Performed By: #### U RTPCR #### [facility] [address] [place] [address] Dr. Jose Mckinney Nitrite Ql (U) Negative Normal NEGATIVE [facility] Comment on above: Performed By: #### U RTPCR #### [facility] [address] [place] [address] Dr. Jose Mckinney pH (U) 6.0 [pH] Normal 5-9 [facility] Comment on above: Performed By: #### U RTPCR #### [facility] [address] [place] [address] Dr. Jose Mckinney RBC 0-2 Normal 0-2 [facility] Comment on above: Performed By: #### U RTPCR #### [facility] [address] [place] [address] Dr. Jose Mckinney SPEC GRAVITY 1.010 Normal 1.005-<=1.02 5 [facility] Comment on above: Performed By: #### U RTPCR #### [facility] [address] [place] [address] Dr. Jose Mckinney UA PROTEIN Negative Normal NEGATIVE/ TRACE [facility] Comment on above: Performed By: #### U RTPCR #### [facility] [address] [place] [address] Dr. Jose Mckinney Urobilinogen Qn (U) 0.2 {Betsy'U}/dL Normal 0.2 - 1. 0 [facility] Comment on above: Performed By: #### U RTPCR #### [facility] [address] [place] [address] Dr. Jose Mckinney WBC 0-2 Abnormal NONE SEEN [facility] Comment on above: Performed By: #### U RTPCR #### [facility] [address] [place] [address] Dr. Jose Mckinney URIC ACID SERUMon 02-06-2022 Urate [Mass/Vol] 6.7 mg/dL Critically high 2.6-6.0 [facility] Comment on above: Performed By: #### U RTPCR #### [facility] [address] [place] [address] Dr. Jose Mckinney URINE T PROTEIN CREAT RATIOo n 02-06-2022 Protein (U) [Mass/Vol] 6.0 mg/dL Normal <=12.0 [facility] Comment on above: Performed By: #### I NSULIN #### [facility] [address] [place] [address] Dr. Jose Mckinney UR PROT CREAT RAT 0.19 Normal [facility] Comment on above: Performed By: #### I NSULIN #### [facility] [address] [place] [address] Dr. Jose Mckinney URINE CREAT 32.07 mg/dL Normal 20.00-300.00 [facility] Comment on above: Performed By: #### I NSULIN #### [facility] [address] [place] [address] Dr. Jose Mckinney BNPon 09-04-2021 Natriuretic peptide B (Bld) [Mass/Vol] 1096.0 pg/mL Critically high <=900.0 [facility] Comment on above: Performed By: #### U RTPCR #### [facility] [address] [place] [address] Dr. Jose Mckinney CBC AUTO DIFFon 09-04-2021 BASO # 0.0 103/ul Normal 0.0-0.1 [facility] Comment on above: Performed By: #### C BC #### [facility] [address] [place] [address] Dr. Jose Mckinney Basophils/100 WBC (Bld) 0.3 % Normal 0.2-2.0 [facility] Comment on above: Performed By: #### C BC #### [facility] [address] [place] [address] Dr. Jose Mckinney EO # 0.3 103/ul Normal 0.0-0.7 [facility] Comment on above: Performed By: #### C BC #### [facility] [address] [place] [address] Dr. Jose Mckinney Eosinophils/100 WBC (Bld) 2.1 % Normal 0.9-7.0 [facility] Comment on above: Performed By: #### C BC #### [facility] [address] [address] [address] Jose Mckinney Erythrocyte distribution width (RBC) [Ratio] 13.7 % Normal 11.0-15.0 [facility] Comment on above: Performed By: #### C BC #### [facility] [address] [address] [address] Jose Mckinney Hematocrit (Bld) [Volume fraction] 40.1 % Normal 36.0-48.0 [facility] Comment on above: Performed By: #### C BC #### [facility] [address] [place] [address] Dr. Jose Mckinney Hemoglobin (Bld) [Mass/Vol] 13.5 g/dL Normal 12.0-16.0 [facility] Comment on above: Performed By: #### C BC #### [facility] [address] [place] [address] Dr. Jose Mckinney IG # 0.48 10e3/ul Critically high 0.00-0.03 [facility] Comment on above: Performed By: #### C BC #### [facility] [address] [place] [address] Dr. Jose Mckinney IG % 3.7 % Critically high 0.0-0.5 [facility] Comment on above: Performed By: #### C BC #### [facility] [address] [place] [address] Dr. Jose Mckinney LYMPH # 4.2 103/ul Critically high 1.2-3.8 [facility] Comment on above: Performed By: #### C BC #### [facility] [address] [place] [address] Dr. Jose Mckinney Lymphocytes/100 WBC (Bld) 32.5 % Normal 20.5-60.0 [facility] Comment on above: Performed By: #### C BC #### [facility] [address] [place] [address] Dr. Jose Mckinney MANUAL DIFF REQ NO Normal [facility] Comment on above: Performed By: #### C BC #### [facility] [address] [address] [address] Jose Mckinney MCH (RBC) [Entitic mass] 30.7 pg Normal 26.7-34.0 [facility] Comment on above: Performed By: #### C BC #### [facility] [address] [place] [address] Dr. Jose Mckinney MCHC (RBC) [Mass/Vol] 33.7 g/dL Normal 29.9-35.2 [facility] Comment on above: Performed By: #### C BC #### [facility] [address] [place] [address] Dr. Jose Mckinney MCV (RBC) [Entitic vol] 91.1 fL Normal 81.0-99.0 [facility] Comment on above: Performed By: #### C BC #### [facility] [address] [place] [address] Dr. Jose Mckinney MONO # 0.9 103/ul Critically high 0.3-0.8 [facility] Comment on above: Performed By: #### C BC #### [facility] [address] [place] [address] Dr. Jose Mckinney Monocytes/100 WBC (Bld) 7.3 % Normal 1.7-12.0 [facility] Comment on above: Performed By: #### C BC #### [facility] [address] [place] [address] Dr. Jose Mckinney NEUT # 6.9 103/ul Critically high 1.4-6.5 [facility] Comment on above: Performed By: #### C BC #### [facility] [address] [place] [address] Dr. Jose Mckinney Neutrophils/100 WBC (Bld) 54.1 % Normal 43.0-75.0 [facility] Comment on above: Performed By: #### C BC #### [facility] [address] [place] [address] Dr. Jose Mckinney Platelet mean volume (Bld) [Entitic vol] 11.7 fL Normal 9.5-13.5 [facility] Comment on above: Performed By: #### C BC #### [facility] [address] [address] [address] Jose Mckinney PLT 216 103/ul Normal 150-450 [facility] Comment on above: Performed By: #### C BC #### [facility] [address] [place] [address] Dr. Jose Mckinney RBC 4.40 106/ul Normal 4.20-5.40 [facility] Comment on above: Performed By: #### C BC #### [facility] [address] [place] [address] Dr. Jose Mckinney WBC 12.8 103/ul Critically high 4.0-11.0 [facility] Comment on above: Performed By: #### C BC #### [facility] [address] [place] [address] Dr. Jose Mckinney [facility] SARS-CoV-2 (COVID-19) RNA CHILO+probe Ql (Unsp spec) Not detected Normal NOT DETECTED [facility] Comment on above: Result Comment: This test is not yet approved or cleared by the [place] FDA. When there are no FDA-approved or cleared tests available, and other criteria are met, FDA can make tests available under an emergency access mechanism called an Emergency Use Authorization (EUA). The EUA for this test is supported by the [employer] of Health and Human Service's (HHS's) declaration [...] SARS-CoV-2. Performed By: #### I NSULIN #### [facility] [address] [place] [address] Dr. Jose Mckinney D-DIMERon 09-04-2021 D-DIMER 0.33 mg/L FEU Normal 0.19-0.50 [facility] Comment on above: Performed By: #### I NSULIN #### [facility] [address] [place] [address] Dr. Jose Mckinney D-DIMER COMMENTS SEE BELOW Normal [facility] Comment on above: Result Comment: Incr [...] hospitalization. Performed By: #### I NSULIN #### [facility] [address] [place] [address] Dr. Jose Mckinney PROF 14(COMP METB)on 022 Albumin [Mass/Vol] 3.4 g/dL Normal 3.4-5.0 [facility] Comment on above: Performed By: #### U RTPCR #### [facility] [address] [place] [address] Dr. Jose Mckinney Albumin/Globulin [Mass ratio] 1.0 {ratio} Normal [facility] Comment on above: Performed By: #### U RTPCR #### [facility] [address] [place] [address] Dr. Jose Mckinney ALP [Catalytic activity/Vol] 92 U/L Normal 46-116 [facility] Comment on above: Performed By: #### U RTPCR #### [facility] [address] [place] [address] Dr. Jose Mckinney ALT [Catalytic activity/Vol] 113 U/L Critically high 14-59 [facility] Comment on above: Performed By: #### U RTPCR #### [facility] [address] [place] [address] Dr. Jose Mckinney Anion gap [Moles/Vol] 14.0 mmol/L Normal [facility] Comment on above: Performed By: #### U RTPCR #### [facility] [address] [address] [address] Jose Mckinney AST [Catalytic activity/Vol] 50 U/L Critically high 15-37 [facility] Comment on above: Performed By: #### U RTPCR #### [facility] [address] [address] [address] Jose Mckinney Bilirubin [Mass/Vol] 0.4 mg/dL Normal 0.2-1.3 [facility] Comment on above: Performed By: #### U RTPCR #### [facility] [address] [address] [address] Jose Mckinney Calcium [Mass/Vol] 9.0 mg/dL Normal 8.5-10.1 [facility] Comment on above: Performed By: #### U RTPCR #### [facility] [address] [address] [address] Jose Mckinney Chloride [Moles/Vol] 100 mmol/L Normal 98-107 [facility] Comment on above: Performed By: #### U RTPCR #### [facility] [address] [address] [address] Jose Mckinney CO2 [Moles/Vol] 25.4 mmol/L Normal 22.0-30.0 [facility] Comment on above: Performed By: #### U RTPCR #### [facility] [address] [address] [address] Jose Mckinney Creatinine [Mass/Vol] 1.61 mg/dL Critically high 0.52-1.04 [facility] Comment on above: Performed By: #### U RTPCR #### [facility] [address] [address] [address] Jose Mckinney EGFR-AF MOROCCAN 41 mL/min/1.73m2 Critically low >=60 [facility] Comment on above: Performed By: #### U RTPCR #### [facility] [address] [address] [address] Jose Mckinney EGFR-NON AF MOROCCAN 33 mL/min/1.73m2 Critically low >=60 [facility] Comment on above: Performed By: #### U RTPCR #### [facility] [address] [address] [address] Jose Mckinney Globulin (S) [Mass/Vol] 3.4 g/dL Normal [facility] Comment on above: Performed By: #### U RTPCR #### [facility] [address] [address] [address] Jose Mckinney Glucose [Mass/Vol] 57 mg/dL Critically low 74-106 [facility] Comment on above: Performed By: #### U RTPCR #### [facility] [address] [address] [address] Jose Mckinney Potassium [Moles/Vol] 3.4 mmol/L Normal 3.4-5.0 [facility] Comment on above: Performed By: #### U RTPCR #### [facility] [address] [address] [address] Jose Mckinney Protein [Mass/Vol] 6.8 g/dL Normal 6.1-8.2 [facility] Comment on above: Performed By: #### U RTPCR #### [facility] [address] [address] [address] Jose Mckinney Sodium [Moles/Vol] 136 mmol/L Critically low 137-145 [facility] Comment on above: Performed By: #### U RTPCR #### [facility] [address] [address] [address] Jose Mckinney Urea nitrogen [Mass/Vol] 51.0 mg/dL Critically high 7.0-18 .0 [facility] Comment on above: Performed By: #### U RTPCR #### [facility] [address] [address] [address] Jose Mckinney Urea nitrogen/Creatinine [Mass ratio] 31.7 mg/mg Normal [facility] Comment on above: Performed By: #### U RTPCR #### [facility] [address] [address] [address] Jose Mckinney TROPONIN, HIGH SENSITIVITYon 09-04-2021 HSTROP 16.1 pg/mL Normal 4.0-35.5 [facility] Comment on above: Result Comment: CUT- OFF POINTS HAVE BEEN ESTABLISHED BASED ON THE FOURTH UNIVERSAL DEFINITIONS OF MYOCARDIAL INFARCTION. THE UPPER REFERENCE LIMIT (URL) OF TROPONIN, DEFINED THE 99TH PERCENTILE OF cTnI DISTRIBUTION IN A REFERENCE POPULATION, HAS BEEN CONFIRMED THE DECISION THRESHOLD FOR NE DIAGNOSIS. Performed By: #### U RTPCR #### [facility] [address] [address] [address] Jose Mckinney XR CHEST 1 Von [...] No focal airspace disease. Electronically authenticated by: AFIA KOHLI Date: 2021-09-04 20:53 Normal [facility] XR CHEST 2 Von 08-29-2021 XR CHEST [...] effort versus mild COPD. Electronically authenticated by: AFIA HALL Date: 2021-08-29 14:43 Normal [facility] Cardiovascular Lab Reporton 11-10-2020 Cardiovascular Lab Report [facility] Patient Name: [facility] Authumn MR #: [id number] Department of Physician: Huy Howell M.D. Division of Service Date: 11/09/2020 Cardiology Birthdate: 1970 Adult Cardiovascular Room #: [facility] [address] [place] [address] Cardiovascular Laboratory Report FINAL IMPRESSION: 1. Mild [...] Aspirin, moderate high-intensity statin therapy, +/- beta ayala and angiotensin-converti ng enzyme inhibitor should be considered given mild coronary disease. 4. Follow up with Dr. Sea Chatterjee as scheduled. 5. Follow up with [facility] Cardiology on an as-needed basis. PROCEDURES: Ultrasound-guided [...] the left radial artery was obtained. A 6-Romanian glide sheath was inserted without difficulty. Bilateral [...] Valadez M.D. Date Trans: 11/10/2020 07:37 [id number] cc: Sea Chatterjee M.D. [address] [id number] [facility] Vital Signs Date Time Vital Sign Value Performing Clinician Facility 08-14-2023 [id number] Body height 160 cm Renee MCGUIRE Work Phone: [facility] 08-14-2023 10:23-0400 Body mass index (BMI) [Ratio] 49.03 kg/m2 Renee MCGUIRE Work Phone: [facility] 08-14-2023 10:23-0400 Body weight 125.56 kg Renee MCGUIRE Work Phone: [facility] 08-14-2023 10:23-0400 Diastolic blood pressure 76 mm[Hg] Renee MCGUIRE Work Phone: [facility] 08-14-2023 10:23-0400 Heart rate 110 /min Renee MCGUIRE Work Phone: [facility] 08-14-2023 10:23-0400 Systolic blood pressure 144 mm[Hg] Renee MCGUIRE Work Phone: [facility] 04-30-2023 11:00-0500 Body height 160.02 cm Anila Jasmine Other [employer] Other 04-30-2023 11:00-0500 Body mass index (BMI) [Ratio] 51.54 kg/m2 Anila Jasmine Other [employer] Other 04-30-2023 11:00-0500 Body temperature 96.4 [degF] Anila Jasmine Other [employer] Other 04-30-2023 11:00-0500 Body weight 132 kg Anila Jasmine Other [employer] Other 04-30-2023 11:00-0500 Diastolic blood pressure 84 mm[Hg] Anila Jasmine Other [employer] Other 04-30-2023 11:00-0500 Respiratory rate 18 /min Anila Jasmine Other [employer] Other 04-30-2023 11:00-0500 SaO2% (BldA) [Mass fraction] 96 % Anila Jasmine Other [employer] Other 04-30-2023 11:00-0500 Systolic blood pressure 133 mm[Hg] Anila Jasmine Other [employer] Other 11-11-2022 14:45-0400 Body height 160.02 cm Misha Christian Other [employer] Other 11-11-2022 14:45-0400 Body mass index (BMI) [Ratio] 49.24 kg/m2 Misha Christian Other [employer] Other 11-11-2022 14:45-0400 Body weight 126.1 kg Misha Christian Other [employer] Other 10-07-2022 14:30-0400 Body height 160.02 cm Misha Christian Other [employer] Other 10-07-2022 14:30-0400 Body mass index (BMI) [Ratio] 50.41 kg/m2 Misha Christian Other [employer] Other 10-07-2022 14:30-0400 Body weight 129.09 kg Misha Christian Other [employer] Other 08-15-2022 15:20-0400 Body height 160.02 cm Anila Jasmine Other [employer] Other 08-15-2022 15:20-0400 Body mass index (BMI) [Ratio] 48.35 kg/m2 Anila Jasmine Other [employer] Other 08-15-2022 15:20-0400 Body temperature 97.4 [degF] Anila Jasmine Other [employer] Other 08-15-2022 15:20-0400 Body weight 123.83 kg Anila Jasmine Other [employer] Other 08-15-2022 15:20-0400 Diastolic blood pressure 70 mm[Hg] Anila Jasmine Other [employer] Other 08-15-2022 15:20-0400 Respiratory rate 18 /min Anila Jasmine Other [employer] Other 08-15-2022 15:20-0400 SaO2% (BldA) [Mass fraction] 99 % Anila Jasmine Other [employer] Other 08-15-2022 15:20-0400 Systolic blood pressure 132 mm[Hg] Anila Jasmine Other [employer] Other 02-11-2022 15:40-0400 Body height 160.02 cm Anila Jasmine Other [employer] Other 02-11-2022 15:40-0400 Body mass index (BMI) [Ratio] 50.37 kg/m2 Anila Jasmine Other [employer] Other 02-11-2022 15:40-0400 Body temperature 96.6 [degF] Anila Jasmine Other [employer] Other 02-11-2022 15:40-0400 Body weight 129 kg Anila Jasmine Other [employer] Other 02-11-2022 15:40-0400 Diastolic blood pressure 54 mm[Hg] Anila Jasmine Other [employer] Other 02-11-2022 15:40-0400 Respiratory rate 18 /min Anila Jasmine Other [employer] Other 02-11-2022 15:40-0400 SaO2% (BldA) [Mass fraction] 96 % Anila Jasmine Other [employer] Other 02-11-2022 15:40-0400 Systolic blood pressure 131 mm[Hg] Anila Jasmine Other [employer] Other 10-22-2021 15:30-0400 Body height 160.02 cm Arthur Olexa Other [employer] Other 10-22-2021 15:30-0400 Body mass index (BMI) [Ratio] 49.95 kg/m2 Arthur Olexa Other [employer] Other 10-22-2021 15:30-0400 Body weight 127.92 kg Arthur Olexa Other [employer] Other 08-02-2021 15:40-0500 Body height 160.02 cm Anila Jasmine Other [employer] Other 08-02-2021 15:40-0500 Body mass index (BMI) [Ratio] 50.66 kg/m2 Anila Jasmine Other [employer] Other 08-02-2021 15:40-0500 Body weight 129.73 kg Anila Jasmine Other [employer] Other 08-02-2021 15:40-0500 Diastolic blood pressure 80 mm[Hg] Anila Jasmine Other [employer] Other 08-02-2021 15:40-0500 Respiratory rate 18 /min Anila Jasmine Other [employer] Other 08-02-2021 15:40-0500 SaO2% (BldA) [Mass fraction] 96 % Anila Jasmine Other [employer] Other 08-02-2021 15:40-0500 Systolic blood pressure 132 mm[Hg] Anila Jasmine Other [employer] Other Encounters Encounter Date Encounter Type Care Provider Facility Start: 08-29-2023 ambulatory ANN Lilibeth SHANTANU [facility] Start: 08-14-2023 End: 08-15-2023 Emergency department patient visit SHYANN JONES [facility] Start: 08-14-2023 End: 08-14-2023 ambulatory RENEE GRUBER [facility] Start: 08-14-2023 End: 08-14-2023 Office outpatient new 30 minutes Renee Nickerson Helen COATING INSPECTOR-POLISH [employer]KER Work Phone: 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 RELATIONS ADMINISTRATOR-C Ann Fournier Work Phone: [employer] Other Start: 04-30-2023 End: 04-30-2023 Patient encounter procedure EMPLOYEE RELATIONS ADMINISTRATOR-C Ann Fournier Work Phone: [facility] [place] Work Phone: Start: 04-17-2023 End: 04-17-2023 ambulatory ENEDINA ROMERO Not Available Start: 11-11-2022 (Proc F/U) Procedure F/U Misha Christian [facility] Start: 11-11-2022 End: 11-11-2022 ambulatory Misha Christian Other [employer] Other Start: 10-24-2022 End: 10-24-2022 ambulatory Arthur Moy Other [employer] Other Start: 10-24-2022 Telephone encounter Arthur Moy [facility] Start: 10-07-2022 End: 10-07-2022 ambulatory Misha Christian Other [employer] Other Start: 10-07-2022 Office outpatient vi sit 15 minutes Misha Christian [facility] Start: 09-23-2022 End: 09-23-2022 ambulatory Arthur Moy Facility:[facility] Start: 09-23-2022 End: 09-23-2022 ambulatory MD Arthur Moy Work Phone: [facility] Work Phone: Start: 09-23-2022 End: 09-23-2022 Patient encounter procedure MD Arthur Moy Work Phone: [facility] Start: 08-19-2022 End: 08-19-2022 ambulatory Arthur Moy Facility:[facility] Start: 08-19-2022 End: 08-19-2022 Patient encounter procedure MD Arthur Moy Work Phone: [facility] Start: 08-19-2022 End: 08-19-2022 ambulatory MD Arthur Moy Work Phone: [facility] Work Phone: Start: 08-19-2022 Office outpatient ne w 30 minutes Arthur Moy [facility] Start: 08-15-2022 End: 08-15-2022 ambulatory Anila Jasmine Other [employer] Other Start: 08-15-2022 Office outpatient vi sit 25 minutes Anila Jasmine [facility] Start: 08-13-2022 End: 08-14-2022 ambulatory ANILA JASMINE Facility:[facility] Start: 07-08-2022 End: 07-09-2022 ambulatory Afia Hall Facility:[facility] Start: 05-13-2022 End: 05-13-2022 ambulatory ANN FOURNIER Facility:[facility] Start: 02-11-2022 End: 02-11-2022 ambulatory Anila Jasmine Other [employer] Other Start: 02-11-2022 Office outpatient vi sit 25 minutes Anila Jasmine [facility] Start: 02-06-2022 End: 02-07-2022 ambulatory ANNJOSELUIS ESPINOZAMER Facility:[facility] Start: 10-22-2021 End: 10-22-2021 ambulatory Arthur Moy Other [employer] Other Start: 10-22-2021 Office outpatient ne w [address] [facility] Start: 09-07-2021 End: 09-07-2021 ambulatory ANN FOURNIER Facility:[facility] Start: 09-04-2021 End: 09-05-[address] AZEEM FITZGERALD Facility:[facility] Start: 08-29-2021 End: 08-30-2021 ambulatory DENYSBENSON RICH . Facility:[facility] Start: 08-02-2021 End: 08-02-2021 ambulatory Anila Jasmine Other [employer] Other Start: 08-02-2021 Office outpatient vi sit 15 minutes Anila Jasmine [facility] Start: 11-09-2020 End: 11-10-2020 ambulatory SEA CHATTERJEE Facility:[facility] Start: 10-31-2020 End: 11-01-2020 ambulatory SEA CHATTERJEE Facility:[facility] Start: 11-06-2017 Ambulatory ANTONIO BRIAN Facility :[id number] Start: 11-06-2017 Ambulatory Facility:[id number] Procedures Date Procedure Procedure Detail Performing Clinician Start: 09-23-2022 X-ray of left knee MD Frantz Moy Work Phone: Start: 08-19-2022 Plain X-ray of right shoulder MD Arthur Moy Work Phone: Start: 08-19-2022 X-ray of cervical spine MD Arthur Moy Work Phone: Replacement of total knee joint Anila Granados Other Plan of Treatment Date Care Activity Detail Author Start: 08-13-2024 Adult BMI Screening Adult [facility]ening [facility] Start: 08-13-2024 Tobacco Screening [facility] Start: 08-14-2023 End: 08-13-2024 RF Esophagus Views W contrast PO Fluoroscopy esophagus Imaging Routine Dysphagia, unspecified type Expected: 08/14/2023, Expires: 08/13/2024 ooma Work Phone: Comment on above: Expected: 08/14/2023, Expires: Start: 01-31-2023 Influenza vaccination Influenza Vaccine [facility] Start: 1989 Screening for malignant neoplasm of cervix Pap Smear [facility] Start: 1987 DTaP,Tdap and Td Vaccines (1 - Tdap) DTaP,Tdap and Td Vaccines ( - Tdap) [facility] Start: 1986 Adult BMI Follow Up Plan Adult BMI Follow Up Plan [facility] Start: 1980 Depression Screening Depression Screening [facility] [employer] End: 08-13-2024 Esophagogastroduodenoscopy EGD GI Routine Dysphagia, unspecified type 1 Occurrences starting 08/14/2023 until 08/13/2024 [facility] [employer] Comment on above: 1 Occurrences starting 08/14/2023 until 08/13/2024 Payers Date Payer Category Payer Medicare [facility]LY [facility] MEDICARE ANTH MEDICARE ADVANTAGE [id number] 2023-Present [phone] [address] [place] [address] [id number] 2022 Self-pay [id number] 2017 [place] [id number] 2017-Present [phone] [address] [place] [address] [id number] 2008 Unknown [id number] 1968 Unknown [id number] [id number]7 1968 Unknown [id number] 2.16.840.1.745471.3.579.2.647 1968 Unknown [id number] 2.16.840.1.421297.3.579.2.593 1968 Unknown [id number] 2.16.840.1.185016.3.579.2.593 1968 Unknown [id number] 2.16.840.1.114993.3.579.2.593 1968 Unknown [id number] 2.16.840.1.676899.3.579.2.593 1968 Unknown [id number] 2.16.840.1.970618.3.579.2.593 1968 Unknown [id number] 2.16.840.1.465915.3.579.2.593 1968 Unknown [id number] 2.16.840.1.085030.3.579.2.593 1968 Unknown [id number] 2.16.840.1.390257.3.579.2.593 1968 Unknown [id number] 2.16.840.1.676095.3.579.2.1259 1968 Unknown [id number] 2.16.840.1.771312.3.579.2.1259 1968 Unknown [id number] 2.16.840.1.253381.3.579.2.1286 1968 Unknown [id number] 2.16.840.1.505720.3.579.2.1286 1968 Unknown [id number] 2.16.840.1.586236.3.579.2.1286 1968 Unknown [id number] 2.16.840.1.387563.3.579.2.1286 1968 Unknown [id number] 2.16.840.1.140073.3.579.2.1286 1959 Medicaid [id number] 1959 Unknown [id number] Unknown [id number] 2.16.840.1.996917.3.579.2.531 Unknown [id number] 2.16.840.1.663946.3.579.2.531 Unknown [id number] 2.16.840.1.799727.3.579.2.531 Social History Date Type Detail Facility Unknown if ever smoked [employer] Other Start: 07-13-2020 End: 08-14-2023 Sex Assigned At [facility] y[facility] Start: 1970 Sex Assigned At Female [facility] Start: 08-14-2023 Tobacco smoking stat [facility] Never smoked tobacco [facility] Start: 08-14-2023 Tobacco use and exposure Smokeless tobacco non-user [facility] Start: 08-14-2023 Alcohol intake Ex-drinker (finding) [facility] Start: 07-13-2020 End: 08-14-2023 History of Social function [facility] Childcare Unknown [facility] Start: 1970 Sex Assigned At Not on file P [facility] Medical Equipment Procedure Code Equipment Code Equipment Origin al Text Equipment Identifier Dates Start: 11-05-2016 Clinical Notes 08-02-2021 to 08-14-2023 Renee Gruber, STEPH-POLISH [employer]KER - 08/14/2023 10:00 AM EDT Note Date & Type Note Facility 08-14-2023 History of Present illness Narrative Images from the original note were not included. Chief Complaint: Dysphagia History of Present Illness Amadou Suarez is a 53 y.o. female who presents to the office for dysphagia. Symptoms started in 2021 but are quickly getting worse. She has difficulty swallowing liquids and solids. She feels like they get stuck in the back of her throat. She can usually get the food down by taking extra drinks. She denies any nausea or vomiting, bleeding or unintentional weight loss. She reports intermittent heartburn depending on her diet. She does not smoke or drink an increased amount of caffeine. She is currently taking pantoprazole 40 mg daily. She is worried because she has a personal history of ovarian cancer. Review of Systems Constitutional: Negative for fever and unexpected weight change. HENT: Positive for trouble swallowing. Respiratory: Negative for shortness of breath. Cardiovascular: Negative for chest pain. Gastrointestinal: Negative for nausea, vomiting, diarrhea, constipation, blood in stool and black tarry stool. Genitourinary: Negative for dysuria and difficulty urinating. Musculoskeletal: Negative for gait problem. Skin: Negative for rash and wound. Neurological: Negative for dizziness, weakness and light-headedness. Hematological: Does not bruise/bleed easily. Psychiatric/Behavioral: Negative for confusion. Past Medical History: Diagnosis Date Anemia Asthma Diabetes type 2, controlled ([facility]) GI problem Herniation of right side of L4-L5 intervertebral disc High cholesterol Hypertension Hypothyroidism Nerve damage in feet and legs Osteoarthritis Ovarian cancer ([facility]) Past Surgical History: Procedure Laterality Date APPENDECTOMY CHOLECYSTECTOMY DISCECTOMY KNEE ARTHROSCOPY Right NASAL SEPTUM SURGERY REPLACEMENT TOTAL KNEE Right SHOULDER HARDWARE REMOVAL TONSILLECTOMY Allergies Allergen Reactions Bactrim [Sulfamethoxazole-Trimethoprim] Anaphylaxis Penicillins Anaphylaxis Sulfamethoxazole Anaphylaxis and Swelling Sulfanilamide Anaphylaxis Trimethoprim Anaphylaxis Aspirin Vomiting Avelox [Moxifloxacin] Hives Azithromycin Hives Cefzil [Cefprozil] Hives Cephalexin Hives Ciprofloxacin Hives Percocet [Oxycodone-Acetaminophen] Vomiting Current Outpatient Medications: albuterol (PROVENTIL HFA;VENTOLIN HFA) 90 mcg/actuation inhaler, Inhale 2 puffs every 4 (four) hours as needed for shortness of breath., Disp: , Rfl: allopurinoL (ZYLOPRIM) 300 mg tablet, Take 1 tablet (300 mg total) by mouth in the morning., Disp: , Rfl: ascorbic acid, vitamin C, (ascorbic acid) 250 mg tablet,chewable, Chew and swallow., Disp: , Rfl: biotin 10,000 mcg capsule, Take by mouth., Disp: , Rfl: cholecalciferol, vitamin D3, 2,000 units capsule, Take 1 capsule (2,000 Units total) by mouth in the morning., Disp: , Rfl: cinnamon bark (CINNAMON) 500 mg capsule, Take 4 capsules (2,000 mg total) by mouth in the morning., Disp: , Rfl: cyclobenzaprine (FLEXERIL) 10 mg tablet, , Disp: , Rfl: fenofibrate (LOFIBRA) 160 mg tablet, , Disp: , Rfl: ferrous sulfate (IRON) 325 (65 FE) mg tablet, Take 1 tablet (325 mg total) by mouth daily with breakfast., Disp: , Rfl: fexofenadine (ORAL) 180 mg tablet, Take 1 tablet (180 mg total) by mouth in the morning., Disp: , Rfl: fluticasone (FLONASE) 50 mcg/actuation nasal spray, , Disp: , Rfl: furosemide (LASIX) 40 mg tablet, , Disp: , Rfl: HUMULIN R U-500, CONC, KWIKPEN injection, Inject 150 Units of U-500 under the skin in the morning and 150 Units of U-500 at noon and 150 Units of U-500 in the evening and 150 Units of U-500 before bedtime. 150-190 units QID., Disp: , Rfl: inulin (FIBER GUMMIES) 2 gram tablet,chewable, Chew and swallow., Disp: , Rfl: iiomc-zqsdr-5-ppz-vbd-eknsqx 209-47-86-50 mg capsule, Take by mouth., Disp: , Rfl: Lactobacillus acidophilus (ACIDOPHILUS) capsule, Take 1 capsule by mouth in the morning and 1 capsule at noon and 1 capsule in the evening. Take with meals., Disp: , Rfl: levothyroxine (SYNTHROID, LEVOTHROID) 150 MCG tablet, , Disp: , Rfl: LYRICA 75 mg capsule, , Disp: , Rfl: metoprolol tartrate (LOPRESSOR) 50 mg tablet, , Disp: , Rfl: montelukast (SINGULAIR) 10 mg tablet, , Disp: , Rfl: multivitamin tablet,chewable, Chew 2 capsules and swallow., Disp: , Rfl: ondansetron ODT (ZOFRAN-ODT) 4 mg disintegrating tablet, , Disp: , Rfl: pantoprazole (PROTONIX) 40 mg EC tablet, , Disp: , Rfl: SYMBICORT 160-4.5 mcg/actuation inhaler, , Disp: , Rfl: tiotropium bromide 1.25 mcg/actuation mist, Inhale 2 puffs in the morning., Disp: , Rfl: TRULICITY 4.5 mg/0.5 mL pen injector, Inject 4.5 mg under the skin once a week. Sundays, Disp: , Rfl: vitamin B complex (SUPER B-50 COMPLEX PLUS ORAL), Take by mouth., Disp: , Rfl: vitamin E, dl,tocopheryl acet, (VITAMIN E, DL, ACETATE,) 400 unit capsule, Take 1 capsule (400 Units total) by mouth in the morning., Disp: , Rfl: JANUVIA 100 mg tablet, , Disp: , Rfl: nystatin (MYCOSTATIN) cream, , Disp: , Rfl: raNITIdine (ZANTAC) 150 mg tablet, , Disp: , Rfl: Social History Socioeconomic History Marital status: Single Spouse name: Not on file Number of children: Not on file Years of education: Not on file Highest education level: Not on file Occupational History Not on file Tobacco Use Smoking status: Never Smokeless tobacco: Never Vaping Use Vaping Use: Never used Substance and Sexual Activity Alcohol use: Not Currently Drug use: Not Currently Sexual activity: Defer Other Topics Concern Not on file Social History Narrative Not on file Social Determinants of Health Financial Resource Strain: Not on file Food Insecurity: Unknown (08/14/2023) Hunger Screening Food Insecurity - Worry: Never True Food Insecurity - Inability: Not on file Transportation Needs: Not on file Physical Activity: Not on file Stress: Not on file Social Connections: Not on file Interpersonal Safety: Not on file Housing Instability: Not on file Family History Problem Relation Age of Onset Arthritis Mother Asthma Mother Hypertension Mother Hyperlipidemia Mother Stroke Mother Arthritis Father Diabetes Father Hypertension Father Alzheimer's disease Father Objective Physical Exam Constitutional: General: She is not in acute distress. Appearance: Normal appearance. She is obese. She is not ill-appearing. HENT: Head: Normocephalic and atraumatic. Mouth/Throat: Mouth: Mucous membranes are moist. Eyes: Pupils: Pupils are equal, round, and reactive to light. Cardiovascular: Rate and Rhythm: Normal rate and regular rhythm. Pulmonary: Effort: Pulmonary effort is normal. No respiratory distress. Abdominal: General: Bowel sounds are normal. There is no distension. Palpations: Abdomen is soft. Tenderness: There is no abdominal tenderness. Musculoskeletal: General: Normal range of motion. Skin: General: Skin is warm and dry. Neurological: Mental Status: She is alert and oriented to person, place, and time. Mental status is at baseline. Vital Signs: Blood pressure 144/76, pulse 110, height 160 cm (5' 3 ), weight 125.6 kg (276 lb 12.8 oz). Respiratory Source: No data recorded Admission Weight: Weight: 125.6 kg (276 lb 12.8 oz) Labs No results found for: WBC , HGB , HCT , MCV , PLT No results found for: GLU , CALCIUM , NA , K , CO2 , CL , BUN , CREATININE No results found for: AMYLASE No results found for: LIPASE No results found for: ALT , AST , GGT , ALKPHOS , LABBILI No results found for: INR , PROTIME Assessment [facility] is a 53 y.o.female with dysphagia. Plan Esophagram. EGD with possible biopsy. Risks, benefits, and alternatives discussed with patient. Patient verbalizes understanding and wishes to proceed. Evaluation included: Preparing to see the patient (e.g., review of tests) Obtaining and/or reviewing separately obtained history Performing a medically appropriate examination and/or evaluation Counseling and educating the patient/family/caregiver Referring and communicating with other health career development coordinator Dysphagia, unspecified type [R13.10] SHAYLA RUBIO [facility] [place] This note was created with the assistance of a speech recognition program. While intending to generate a timely document that accurately reflects the content of the visit, no guarantee can be provided that every grammatical or spelling mistake has been or will be identified or corrected. Thank you for your understanding. SHAYLA Rubio 08/14/23 1058 documented in this encounter [facility] 04-30-2023 Evaluation note Encounter Date Diagnosis Assessment [...] and vitamin D are within the goal. [employer] Other 05-08-2023 Evaluation note* Encounter Date Diagnosis Assessment Notes Treatment Notes Treatment Clinical Notes September, Arthritis of left knee (ICD-10 - M17.12) Authumn presents with left knee DJD. H/o R TKA. At this juncture we have discussed the findings and diagnosis as well as personally reviewed appropriate imaging and performed interpretation of related testing and examination with the patient in office today. Prior medical notes from Dr. Moy and history have been reviewed. Today we [...] as documented in the electronic medical record. [employer] [facility] Other 03-20-2023 Evaluation note* Encounter Date Diagnosis [...] 2 diabetes mellitus without complication, unspecified whether nursing home insulin use (ICD-10 - E11.9) Jul, Cervical spine pain (ICD-10 - M54.2) [employer] [facility] Other 03-16-2023 Evaluation note* Encounter Date Diagnosis [...] PCP office to see if the case management manager can help her with the subsidized housing. [...] and vitamin D are within the goal. [employer] [facility] Other 02-07-2023 NotePROCEDURE: XR HIP LT 2 [...] 2. No acute abnormality. Electronically authenticated by: AFIA HALL Date: 2022-07-09 07:42[facility]09-12-2022 Evaluation note* Encounter Date Diagnosis Assessment Notes [...] PCP office to see if the case management manager can help her with the subsidized housing. [...] currently does not take PAULETTE or ARB. [employer] [facility] Other 05-23-2022 Evaluation note* Encounter Date Diagnosis [...] MRI to assess for rotator cuff tear. [employer] [facility] Other 03-03-2022 Evaluation note* Encounter Date Diagnosis [...] currently does not take PAULETTE or ARB. [employer] Other Evaluation noteNo assessment information available [facility] Work Phone: Evaluation noteNo [email or web address] Other Evaluation note[employer] Other Evaluation note* Diagnosis Dysphagia, unspecified type- Primary Personal history of ovarian cancer Personal history of malignant neoplasm of ovary Morbid obesity with BMI of 45.0-49.9, adult ([facility]) documented in this encounter [facility] N[facility]ative - Reported* Type Description Date [...] s 3 Surgical History Procedure: Tonsillectomy;Diseas e: 1972 Surgical History cholecystectomy 2000 Surgical History Procedure: Rotator Cuff Repair; Disease: 2008 Surgical History arthroscopy rt x's 2 shoulder [...] History [facility] 02/2020 [employer] [facility] Other [facility] general Narrative - Reported* Type Description Date [...] Surgical History Procedure: Rotator Cuff Repair; Disease: 2008 Surgical History arthroscopy rt x's 2 shoulder [...] History [facility]ul[facility] 02/2020 [facility] [employer] Other History general Narrative - ReportedNortKaleida Health [employer] Other InstructionsNot on filedocumented in this encounter [facility] Summary Purpose Family History No Family History [...] M25.562 Chief Complaint Chronic Kidney Disea se Reason for Referral Specialty Diagnoses / Procedures Referred By Marina ruiz Referred To Contact Diagnoses Dysphagia, unspecified type Procedures Fluoroscopy esophagus Renee Gruber, COATING INSPECTOR-POLISH MAKER [address] [place] [address] Referral ID Status Reason Start Date Expiration Date V isits Requested Visits Authorized [id number] Pending Review 08/14/2023 08/13/2024 1 1 Additional Source Comments INFORMATION SOURCE (unrecogn ized section and content) DATE CREATED AUTHOR 11/18/2017 [facility] DATE CREATED AUTHOR AUTHOR'S ORGANIZ ATION 11/18/2017 [facility] DATE CREATED AUTHOR AUTHOR'S ORGANIZ ATION 11/16/2020 [facility] DATE CREATED AUTHOR AUTHOR'S ORGANIZ ATION 08/20/2022 [facility] DATE CREATED AUTHOR AUTHOR'S ORGANIZ ATION 05/02/2023 [facility] DATE CREATED AUTHOR AUTHOR'S ORGANIZ ATION 06/27/2023 [facility] DATE CREATED AUTHOR AUTHOR'S ORGANIZ ATION [facility]/16/2023 [facility] DATE CREATED AUTHOR AUTHOR'S ORGANIZ ATION 09/02/2023 [facility] REASON FOR VISIT (unrecogniz ed section and content) Reason Comments Difficulty Swallowing Trouble swallowing Care Teams (unrecognized sec tion and content) Team Status: Inactive Member Role Status Dates Arthur Moy MD Attending Provider Active Team Status: Active Member Role Status Dates CAROLYN Fitzgerald Primary Care Provider Active Team Status: Inactive Member Role Status Dates CAROLYN Fitzgerald Primary Care Provider Active Anila Granados MD Attending Provider Active Pen Rider Relationship Specialty Start Date End Date Ann Fournier APRN-POLISH MAKER [address] [place] [address] PCP - General Family Medicine 08/14/23 Goals (unrecognized section and content) Goals may [...] BE BASED ON THE PRIMARY CLINICAL RECORDS. [employer] provides no warranty or guarantee of the accuracy or completeness of information in this document.
[2023-09-03 06:49] VITALS: BMI 47.4
[2023-09-03 07:09] LABS: Glucometer 455 mg/dL (74-106)
[2023-09-03 07:18] VITALS: BP 169/69; PULSE 67; TEMP 36.3; O2SAT 95
--- NOTE | 2023-09-03 07:18 | PM.GSPRC ---
Date of procedure: 09/03/23 Indications for Procedure: dysphagia Pre-op diagnosis: dysphagia Procedure: EGD with biopsy antrum Findings: gastritis superficial without hemorrhage Anesthesia: MAC Surgeon: Víctor Boo Procedure Summary: Patient was taken endoscopy suite placed in the left lateral recumbent position and given sedation by the airconditioning engineer. The Olympus EGD scope was advanced under direct visualization to the posterior pharynx esophagus stomach through the 1st 2nd 3rd and 4th portions of duodenum.duodenum was normal. The scope was returned to the stomach retroflexed on itself looking the GE junction which was normal.there was superficial gastritis without hemorrhage. Biopsies were taken of the antrum and hemostasis was maintained. There were no ulcers tumors or polyps seen.scope was withdrawn to the esophagus which was normal. There were no obstructions tumors polyps or ulcers seen. The scope was removed from the mouth. Estimated blood loss (mL): 1 Specimens: antral biopsies Complications: No Condition: stable Disposition: PACU
[2023-09-03] MEDS: LACTATED RINGER'S SOLUTION 1,000 ML 50 ML IV (07:25)
[2023-09-03] MEDS: INSULIN REGULAR IN 0.9 % NACL 100 UNIT/100 ML PLAST..BAG 10 UNIT IV (07:32)
[2023-09-03 07:51] LABS: Glucometer 454 mg/dL (74-106)
[2023-09-03 08:05] LABS: Glucometer 447 mg/dL (74-106)
[2023-09-03 08:49] LABS: Glucometer 399 mg/dL (74-106)
[2023-09-03 09:29] VITALS: BP 115/52; PULSE 68; O2SAT 90
[2023-09-03 09:39] LABS: Glucometer 335 mg/dL (74-106)
[2023-09-03 09:44] VITALS: BP 154/59; PULSE 69; O2SAT 93
[2023-09-03 10:01] VITALS: BP 174/77; PULSE 67; O2SAT 95
[2023-09-06 15:53] LABS: H Pylori Tissue, Urease Negative
== END 2023-09-03 10:03 | disposition home or self-care (01) ==
PROVIDERS: PCP Nurse Practitioner Family; Visit Provider Surgery
PROC: (CPT 731; principal; 2023-09-03 07:55)
DX: R13.10 Dysphagia, unspecified (principal); K29.30 Chronic superficial gastritis without bleeding; Z85.43 Personal history of malignant neoplasm of ovary; J45.909 Unspecified asthma, uncomplicated; E11.9 Type 2 diabetes mellitus without complications; M51.26 Other intervertebral disc displacement, lumbar region; E78.00 Pure hypercholesterolemia, unspecified; I10 Essential (primary) hypertension; E03.9 Hypothyroidism, unspecified; M19.90 Unspecified osteoarthritis, unspecified site; Z90.49 Acquired absence of other specified parts of digestive tract; Z79.4 Long term (current) use of insulin; Z79.899 Other long term (current) drug therapy; Z79.85 Long-term (current) use of injectable non-insulin antidiabetic drugs; E66.9 Obesity, unspecified; Z68.42 Body mass index [BMI] 45.0-49.9, adult; Z96.651 Presence of right artificial knee joint
CPT/HCPCS: 43239; 36415; 82948; 87077; 88305; 99999; J2704

== ENCOUNTER 2023-10-01 12:54 | Outpatient (OUT) | payer MEDICARE, MEDICAID, SELFPAY ==
[2023-10-01 13:22] LABS: Hemoglobin 13.9 g/dL (12.0-16.0)
[2023-10-01] MEDS: ALBUTEROL SULFATE 2.5 MG/3 ML VIAL NEB IH (13:53)
--- NOTE | 2023-10-01 13:53 | RT_ITS ---
[facility] Test Date: 2023-10-01 Pat Name: MARY JANE [facility] Department: Room: - Gender: Female Retail Coverage Merchandiser: Mio Zhou RRT : 1970 Requested By: Cayden Viveros Order Number: [id number] Reading MD: Cayden Viveros Interpretive Statements Pulmonary function testing was completed according to ATS criteria. Findings were considered accurate and reproducible. Both pre- and post-bronchodilator values utilized for spirometry. Spirometry (based on pre-bronchodilator values): -FEV1/FVC: Normal @ 83% -FEV1: Mildly reduced @ 74% -FVC: Mildly reduced @ 70% -There is no significant bronchodilator response. Lung volumes by plethysmography (based on pre-bronchodilator values): -RV: Normal @ 90% -TLC: Normal @ 86% Diffusion capacity: -DLCO: Mild reduction @ 69% when corrected for Hb 13.9g/dL Flow-volume loop: -Mild restrictive pattern Impressions: -Spirometry is a mild restrictive pattern with normal lung volumes; this would be consistent with an obesity pattern (stated BMI 51). Mild diffusion impairment. Clinical correlation required. Clinical correlation required. Electronically Signed On 10-01-2023 17:18:26 EDT by Cayden Viveros
== END 2023-10-01 12:55 | disposition home or self-care (01) ==
LOC: CARD 12:55
PROVIDERS: PCP Nurse Practitioner Family; Visit Provider Internal Medicine
DX: J45.50 Severe persistent asthma, uncomplicated (principal)
CPT/HCPCS: 36415; 85018; 94060; 94726; 94729

== ENCOUNTER 2023-10-08 14:00 | Outpatient (OUT) | payer MEDICARE, MEDICAID, SELFPAY ==
[2023-10-08 14:34] LABS: Hemoglobin 14.1 g/dL (12.0-16.0); Mean Corpuscular HGB Conc 32.8 g/dL (29.9-35.2); Mean Corpuscular Hemoglobin 30.7 pg (26.7-34.0); Mean Corpuscular Volume 93.7 fL (81.0-99.0); Platelet Count 144 10^3/uL (150-450); Red Blood Count 4.59 10^6/uL (4.20-5.40); Red Cell Distribution Width 13.1 % (11.0-15.0); White Blood Count 4.9 10^3/uL (4.0-11.0)
[2023-10-08 14:53] LABS: Creatinine Urine Random 38.95 mg/dL (20.00-300.00); Protein Creatinine Ratio Urine 0.94; Total Protein Urine Random 36.5 mg/dL (<=11.9)
[2023-10-08 15:24] LABS: Albumin Level 3.5 g/dL (3.4-5.0); Anion Gap 24.6; BUN Creatinine Ratio 15.2; Calcium 9.7 mg/dL (8.5-10.1); Carbon Dioxide 18.7 mmol/L (21.0-32.0); Chloride 96 mmol/L (98-107); Estimated GFR (African America 54 (>=60); Estimated GFR (Non-African Ame 44 (>=60); Glucose 472 mg/dL (74-106); Magnesium 2.1 mg/dL (1.8-2.4); Phosphorus 3.6 mg/dL (2.6-4.7); Potassium 4.3 mmol/L (3.5-5.1); Sodium 135 mmol/L (136-145); Uric Acid 13.4 mg/dL (2.6-6.0)
[2023-10-09 11:10] LABS: PTH, Intact 8 pg/mL (15-65)
== END 2023-10-08 14:01 | disposition home or self-care (01) ==
LOC: LAB 14:02
PROVIDERS: PCP Nurse Practitioner Family; Visit Provider Internal Medicine
DX: I12.9 Hypertensive chronic kidney disease with stage 1 through stage 4 chronic kidney disease, or unspecified chronic kidney disease (principal); N18.30 Chronic kidney disease, stage 3 unspecified; E87.8 Other disorders of electrolyte and fluid balance, not elsewhere classified; E55.9 Vitamin D deficiency, unspecified; E11.22 Type 2 diabetes mellitus with diabetic chronic kidney disease; E20.9 Hypoparathyroidism, unspecified
CPT/HCPCS: 36415; 80069; 81001; 82306; 82570; 83735; 83970; 84156; 84550; 85027

== ENCOUNTER 2023-10-20 14:10 | Outpatient (OUT) | payer MEDICARE, MEDICAID, SELFPAY ==
--- NOTE | 2023-10-20 14:20 | XR_ITS ---
The [place] [id number] [id number] date: 1970 Sex: F Assigned Patient Location: [facility] Current Patient Location: Accession/Order Number: [id number] Exam Date: 10/20/2023 14:38 Report Date: 10/21/2023 11:11 At the request of: RICHELLE FOURNIER Procedure: XR shoulder LT min 2V PROCEDURE: XR clavicle LT, XR shoulder LT min 2V HISTORY: Fall W19.XXXA ; left shoulder pain, left clavicle pain COMPARISON: None. FINDINGS: BONES:Narrowing of the acromioclavicular joint with small undersurface osteophytes. Unremarkable humeral head and glenohumeral joint. SOFT TISSUES:No visible soft tissue swelling. EFFUSION:None visible. OTHER: Negative. XR/XR shoulder LT min 2V IMPRESSION: 1. Mild degenerative changes of the acromioclavicular joint which may predispose to rotator cuff injury. 2. No acute bone abnormality. Electronically authenticated by: AFIA AVILEZ Date: 10/21/2023 11:11
--- NOTE | 2023-10-20 14:20 | XR_ITS ---
[address] [address] [id number] date: 1970 Sex: F Assigned Patient Location: [facility] Current Patient Location: Accession/Order Number: [id number] Exam Date: 10/20/2023 14:38 Report Date: 10/21/2023 11:11 At the request of: RICHELLE FOURNIER Procedure: XR clavicle LT PROCEDURE: XR clavicle LT, XR shoulder LT min 2V HISTORY: Fall W19.XXXA ; left shoulder pain, left clavicle pain COMPARISON: None. FINDINGS: BONES:Narrowing of the acromioclavicular joint with small undersurface osteophytes. Unremarkable humeral head and glenohumeral joint. SOFT TISSUES:No visible soft tissue swelling. EFFUSION:None visible. OTHER: Negative. XR/XR clavicle LT IMPRESSION: 1. Mild degenerative changes of the acromioclavicular joint which may predispose to rotator cuff injury. 2. No acute bone abnormality. Electronically authenticated by: AFIA AVILEZ Date: 10/21/2023 11:11
== END 2023-10-20 14:11 | disposition home or self-care (01) ==
LOC: RAD 14:12
PROVIDERS: PCP Nurse Practitioner Family; Visit Provider Nurse Practitioner Family
DX: M19.012 Primary osteoarthritis, left shoulder (principal); W19.XXXA Unspecified fall, initial encounter
CPT/HCPCS: 73000; 73030

== ENCOUNTER 2023-11-20 10:57 | Outpatient (OUT) | payer MEDICARE, MEDICAID, SELFPAY ==
--- NOTE | 2023-11-20 09:40 | NM_ITS ---
Patient Name: [facility] MR#: [id number] : 1970 Exam Date: 11/20/2023 Ordering Doctor: DR CONCEPCIÓN MADRIGAL M.D. RADIOLOGY REPORT PROCEDURE: NM KARISHMA PERF SPECT REST STR COMPARISON: None. INDICATIONS: CHEST PAIN TECHNIQUE: Exam Description: Stress/Rest two day protocol gated SPECT Rest Imagin.8 mCi Tc-99m Cardiolite IV on 11/20/2023 Stress Imaging 26.2 mCi Tc-99m Cardiolite IV on 11/24/2023 Exercise Protocol: 0.4 mg Lexiscan given IV Heart Rate (bpm): Rest: 69 Max: 93 PMHR: 56 Blood Pressure: Rest: 136/64 Max: 136/64 Symptoms: Rest and peak stress ECG findings were pending and the exercise portion of the study was pending per attending physician Dr. HOPPER . For more details please see separate cardiac stress test report. FINDINGS: QUALITY OF STUDY: Poor. PERFUSION DEFECT: LOCATION: Mid-anterior. Apical anterior. SIZE: Small (1-2 segments). SEVERITY: Mild. TYPE: Persistent. WALL MOTION: Normal. LV SIZE: Normal. 74 mL. TID / TCD: None; 0.7 LVEF: Normal. Calculated EF 76%. SUMMARY: Myocardial perfusion imaging study has ABNORMAL findings. CONCLUSION: 1. No reversible ischemia 2. Pending exercise test results Dictated by: Hari Ibarra MD on 11/24/2023 at 14:01 Approved by: Hari Ibarra MD on 11/24/2023 at 14:02
== END 2023-11-20 10:58 | disposition home or self-care (01) ==
LOC: NM 10:57
PROVIDERS: PCP Nurse Practitioner Family; Visit Provider Internal Medicine Interventional Cardiology
DX: R07.9 Chest pain, unspecified (principal)
CPT/HCPCS: 78452; A9500

== ENCOUNTER 2023-11-24 07:59 | Outpatient (OUT) | payer MEDICARE, MEDICAID, SELFPAY ==
--- NOTE | 2023-11-24 | PCN_ITS ---
CARDIAC STRESS TEST Requesting Physician: Procedure Date: 11/24/2023 This was a Lexiscan stress test with myocardial perfusion imaging, performed at the [facility] on 11/24/2023. Informed consent was obtained and the patient was attached to electrocardiographic monitoring. An intravenous line was secured. Baseline vital signs and ECG were obtained. Lexiscan 0.4 mg were infused intravenously. The patient then went on to obtain myocardial perfusion imaging. Resting heart rate was 69 BPM and maximum heart rate was 93 BPM. Resting blood pressure was 136/64 and maximum blood pressure was 136/64. Resting ECG showed sinus rhythm with no ischemic changes. ECG following infusion of Lexiscan, showed sinus rhythm without ischemic changes. IMPRESSION: 1. No evidence of ischemic ECG changes seen following infusion of Lexiscan. 2. Myocardial perfusion images will be reported separately. MTDD
--- OUTSIDE RECORDS SUMMARY | 2023-11-24 08:21 | XMS_ITS | CCD ---
Author Organization [facility] Care Team Providers Care Picker / Packer Name Role Phone ANTONIO BRIAN Unavailable Unavailable JARAD NULL Unavailable Unavailab le HOY, SEA Primary Care Unavailable HOY, SEA Referring Unavailable ELTAHAWY, EHAB A Admitting Unavailable ELTAHAWY, EHAB A Attending Unavailable HOY, SEA Primary Care Unavailable HOY, SEA Referring Unavailable ELTAHAWY, EHAB A Admitting Unavailable ELTAHAWY, EHAB A Attending Unavailable Jasmine, Anila Unavailable Arthur Moy Unavailable MD Arthur Moy Attending Provider [phone] SHANTANU, ANN Primary Care Unavailable JASMINE, ANILA [...] Admitting Unavailable SAMSA ., DENYS Attending Unavailable Zieber, Afia Consulting Unavailable SHANTANU, ANN Primary Care Unavailable SAMSA ., DENYS Consulting Unavailable AMILCAR, DR AZEEM Whyte Admitting Unavailable AMILCAR, DR AZEEM Whyte Attending Unavailable AMILCAR, DR AZEEM Whyte Consulting Unavailable SHANTANU, ANN Primary Care Unavailable GERMAINEDINDavid, AFIA Consulting Unavailable SHANTANU, ANN Primary Care Unavailable PAY ., DR HURD Admitting Unavailable PAY ., DR HURD Attending Unavailable PAY ., DR HURD Consulting Unavailable SHANTANU, ANN Primary Care Unavailable SHANTANU, ANN Admitting Unavailable SHANTANU, ANN Attending Unavailable SHANTANU, ANN Consulting Unavailable Misha Christian Unavailable CAROLYN Fournier Tash Primary Care Provider [phone] MD Anila Granados Attending Provider Shantanu GAMEROOM TECHNICIAN-FINANCIAL PROCESSING CLERK, Ann S Primary Care Provider SHANTANU, ANN S Primary Care Unavailable SHYANN JONES Attending Unavailable SHYANN JONES Referring Unavailable SHANTANU, ANN S Primary Care Unavailable RENEE GRUBER Attending Unavailable JARAD NULL Referring Unavailable TENNILLEJARAD NICHOLSON Primary Care Unavailable SHANTANU, ANN S Referring Unavailable SHANTANU, ANN S Primary Care Unavailable CAROLYN Fournier Tash Primary Care Provider DO Antonio Boo Attending Provider Antonio Boo Admitting Unavailable Antonio Boo Attending Unavailable Shantanu, Ann Tash Primary Care Unavailable Anila Granados Admitting Unavailable Anila Granados Attending Unavailable Shantanu, Ann Tash Primary Care Unavailable Arthur Moy Admitting Unavailable Chinmay, Arthur Attending Unavailable REBECA VALADEZ Attending Unavailable ENEDINA ROMERO Attending Unavailable ENEDINA ROMERO Attending Unavailable ENEDINA ROMERO Attending Unavailable IRMA NGUYEN Attending Unavailable ENEDINA ROMERO Attending Unavailable Allergies Allergy Classification Reported Allergen(s) Allergy Type Date of Onset Reaction(s) Facility Acetaminophen / oxyCODONE (1 source) Acetaminophen / oxyCODONE Drug Allergy [facility] Repository Aspirin (1 source) Aspirin Drug Allergy [facility] Repository Cephalosporins (antibiotic) (3 sources) Cephalexin; 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: [cephalexin] Drug Allergy [facility] Repository Macrolides (antibiotic) (1 source) Clarithromycin Drug Allergy [facility] Repository Penicillins (antibiotic) (1 source) Penicillin Drug Allergy [facility] Repository Quinolones (antibiotic) (2 sources) moxifloxacin; 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: [Cipro] Drug Allergy [facility] Repository Sulfamethoxazole / Trimethoprim (1 source) Sulfamethoxazole / Trimethoprim Drug Allergy [facility] Repository Unclassified (12 sources) Adhesive agent Drug allergy (disorder) Unknown, Rash [facility] Repository (12 sources) Acetaminophen / oxyCODONE Drug Allergy Vomiting [employer] [facility] [employer] Other (17 sources) Aspirin; 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: [ASPIRIN] Drug Allergy Vomiting [facility] [employer] (10 sources) cefprozil; 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: [Cefzil] Drug Allergy Unknown [facility] Repository (17 sources) Cephalexin; 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: [CEPHALEXIN] Drug Allergy [facility] [employer] Other (11 sources) Cephalosporins (Antibiotic) Propensity to adverse reactions [facility] (20 sources) Ciprofloxacin; 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: [ciprofloxacin] Drug Allergy [facility] [employer] Other (20 sources) moxifloxacin; 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: [MOXIFLOXACIN] Drug Allergy [facility] [employer] Other (11 sources) oxyCODONE Drug Allergy 023 nausea [facility] (11 sources) penicillAMINE Drug Allergy anaphylaxis [facility] (14 sources) Penicillins; 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: [PENICILLINS] Propensity to adverse reactions Unknown [facility] Repository (12 sources) Soy protein; 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: [soy] Propensity to adverse reactions anaphylaxis [facility] Repository (16 sources) Sulfamethoxazole; 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: [SULFAMETHOXAZOLE] Drug Allergy 011 Anaphylaxis, Swelling [facility] [employer] Other (12 sources) Sulfamethoxazole / Trimethoprim Drug Allergy anaphylaxis [facility] [employer] Other (16 sources) Sulfanilamide; 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: [SULFANILAMIDE] Drug Allergy Anaphylaxis [facility] [employer] Other (16 sources) Trimethoprim; 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: [TRIMETHOPRIM] Drug Allergy Anaphylaxis [facility] [employer] Other (11 sources) Foam Tape Propensity to adverse reactions Unknown, Rash [facility] (11 sources) BCise Propensity to adverse reactions stomach upset [facility] (9 sources) Avalox Propensity to adverse reactions Unknown [facility] [employer] Other (1 source) Acetaminophen / oxyCODONE Drug Allergy [facility] Repository (1 source) Aspirin Drug Allergy [facility] Repository (1 source) Cephalexin Drug Allergy [facility] Repository (1 source) Ciprofloxacin Drug Allergy [facility] Repository (1 source) Clarithromycin Drug Allergy [facility] Repository (1 source) Desonide Drug Allergy 013 [facility] Repository (1 source) egg extract Drug Allergy [facility] Repository (1 source) moxifloxacin Drug Allergy [facility] Repository (1 source) Penicillins Drug allergy (disorder) [facility] Repository (1 source) Sulfamethoxazole / Trimethoprim Drug Allergy [facility] Repository (1 source) tomato allergenic extract Drug Allergy [facility] Repository (1 source) Misc-ENV; 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: [Misc-ENV] Propensity to adverse reactions (disorder) [facility] Repository (1 source) Misc-Other; 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: [Misc-Other] Propensity to adverse reactions (disorder) [facility] Repository (1 source) Misc-Food; 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: [Misc-Food] Food allergy (disorder) [facility] Repository (14 sources) Azithromycin; 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: [AZITHROMYCIN] Drug Allergy rash, Hives [facility] (8 sources) cefprozil; 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: [CEFPROZIL] Drug Allergy 011 Hives [facility] (3 sources) Penicillins Propensity to adverse reactions to drug Anaphylaxis [facility] (3 sources) Acetaminophen / oxyCODONE; 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: [OXYCODONE-ACETAMIN OPHEN] Drug Allergy [facility] Repository (3 sources) Sulfamethoxazole / Trimethoprim; 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: [SULFAMETHOXAZOLE-T RIMETHOPRIM] Drug Allergy [facility] Repository (2 sources) Acetaminophen Drug Allergy Unknown Reaction [facility] (1 source) atorvastatin; 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: [ATORVASTATIN] Drug Allergy [facility] Repository (1 source) Simvastatin; 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: [SIMVASTATIN] Drug Allergy [facility] Repository (1 source) OTHER; 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: [OTHER] Propensity to adverse reactions (disorder) [facility] Repository Medications Current Medications Medication Drug Class(es) Dates Sig (Normalized) Sig (Original) [id number] 200 actuat albuterol 0.09 mg/actuat metered dose inhaler (20 sources) beta2-Adrenergic Agonist Start: 10-09-2023 Albuterol Sulfate Active 2.5 MG INHALATION every 6 to 8 hours October 09, 2023 12:00am Start: 10-09-2023 take 2 puff(s) by in halation every four hours as needed Albuterol Sulfate (Ventolin Hfa) 90 mcg/actuation HFA aerosol inhaler Active 2 PUFF INHALATION Every 4 hours October 09, 2023 12:00am FreeText[employer] puffs as needed Inhalation every 4 hrs; Note: Source Status: Taking; Provider: Jasmine High ( ) take 2 puff(s) by in halation every four hours as needed albuterol (PROVENTIL [...] hrs Active allopurinol 300 mg oral tablet (13 sources) Xanthine Oxidase Inhibitor Start: 10-09-2023 take 1 tablet by mouth once daily Allopurinol Active 1 TAB PO Daily October 09, 2023 12:00am [employer] tablet Orally Once a day; Note: Source Status: Taking; Provider: Jasmine High ( ) take 1 tablet by mouth in the mo rning allopurinoL (ZYLOPRIM) 300 mg tablet Take 1 tablet (300 mg total) by mouth in the morning. 0 Active ascorbic acid 250 mg oral tablet (7 sources) Vitamin C Start: 10-09-2023 take 250 mg by mouth once daily Ascorbic Acid (Vitamin C) Active 250 MG PO Daily October 09, 2023 12:00am ascorbic acid, v itamin C, (ascorbic acid) 250 mg tablet,chewable Chew and swallow. 0 Active biotin 10 mg oral tablet (13 sources) Start: 10-09-2023 take 1 tablet by mouth once daily Biotin Active 1 TAB PO Daily October 09, 2023 12:00am FreeText[employer] tablet Orally Once a day; Note: Source Status: Taking; Provider: Jasmine High ( ) biotin 10,000 mc g capsule Take by mouth. 0 Active take 1 tablet by mouth once maura y Biotin 10 MG 1 tablet Orally Once a day Active 120 actuat budesonide 0.16 mg/actuat / formoterol fumarate 0.0045 mg/actuat metered dose inhaler (13 sources) Corticosteroid, beta2-Adrenergic Agonist Start: 10-09-2023 take 2 puff(s) by inhalation twice daily Budesonide-Formoterol (Symbicort) 160-4.5 mcg/actuation HFA aerosol inhaler Active 2 PUFF INHALATION Twice daily October 09, 2023 12:00am [employer] puffs Inhalation Twice a day; Note: Source Status: Taking; Provider: Jasmine High ( ) Start: 10-06-2017 SYMBICORT 160- 4.5 mcg/actuation inhaler take 2 puff(s) by in halation twice daily Symbicort 160-4.5 MCG/ACT 2 puffs Inhalation Twice a day Active cholecalciferol 0.05 mg oral capsule (10 sources) Vitamin D Start: 10-09-2023 take 1 capsule by mouth once daily Cholecalciferol (Vitamin D3) Active 1 CAP PO Daily October 09, 2023 12:00am Free[employer] capsule Orally Once a day; Note: Source Status: Taking; Provider: Jasmine High ( ) take 1 capsule by mo uth in the morning cholecalciferol, vitamin D3, 2,000 units capsule Take 1 capsule (2,000 Units total) by mouth in the morning. 0 Active take 1 capsule by mo uth every twenty-four hours Vitamin D3 50 MCG (2000 UT) 1 capsule Or ally Once a day Active Cholest Off 450 MG (9 sources) take 450 mg by mouth twice daily Cholest Off 450 MG Orally TWICE A DAY Active Cholest Off 450 MG Orally Active cinnamon bark 500 mg oral capsule (4 sources) Start: 10-09-2023 take 1 capsule by mouth once daily Cinnamon Bark (Cinnamon) 500 mg capsule Active 1000 MG PO Daily October 09, 2023 12:00am take 4 capsules by mouth in the [...] Active cyclobenzaprine hydrochloride 10 mg oral tablet (13 sources) Muscle Relaxant Start: 10-09-2023 take 10 mg by mouth once daily at bedtime Cyclobenzaprine Active 10 MG PO Daily at bedtime October 09, 2023 12:00am Start: 11-03-2017 cyclobenzaprin e (FLEXERIL) 10 mg tablet docusate sodium 250 mg oral capsule (10 sources) Start: 10-09-2023 take 250 mg by mouth once daily Docusate Sodium Active 250 MG PO Daily October 09, 2023 12:00am take 1 capsule by mo uth every [...] 3mg Subcutaneous weekly for 84 days Active Dulaglutide (Trulicity) 4.5 mg/0.5 mL pen injector (1 source) Start: 10-09-2023 inject 3 mg by subcutaneous injection every week Dulaglutide (Trulicity) 4.5 mg/0.5 mL pen injector Active MG SUBCUT October 09, 2023 12:00am FreeTextSimg Subcutaneous weekly; Note: Source Status: Taking; Refills: 3; Qty: 3 Box; Provider: Ramon Davis 2 ml dupilumab 150 mg/ml auto-injector (10 sources) Interleukin-4 Receptor alpha Antagonist Start: 10-09-2023 Dupilumab Active MG SUBCUT October 09, 2023 12:00am FreeTextSig: as directed Subcutaneous EVERY 14 DAYS; Note: Source Status: Taking; Provider: Dr Viveros Dupixent 300 MG/ 2ML as directed Subcutaneous EVERY 14 DAYS Active famotidine 20 mg oral tablet (10 sources) Histamine-2 Receptor Antagonist Start: 10-09-2023 take 1 tablet by mouth twice daily before mealtime Famotidine (Pepcid Ac) 20 mg tablet Active 20 MG PO Twice daily October 09, 2023 12:00am take 1 tablet by eva th every twenty-four hours Pepcid 20 MG 1 tablet Orally Once a day Active fenofibrate 160 mg oral tablet (13 sources) Peroxisome Proliferator Receptor alpha Agonist Start: 10-09-2023 take 160 mg by mouth once daily Fenofibrate Active 160 MG PO Daily October 09, 2023 12:00am Start: 10-06-2017 fenofibrate (L OFIBRA) 160 mg tablet ferrous sulfate 325 mg oral tablet (4 sources) Start: 10-09-2023 take 1 tablet by mouth once daily Ferrous Sulfate (Feosol) 325 mg (65 mg iron) tablet Active 325 MG PO Daily October 09, 2023 12:00am take 1 tablet by eva th once daily at breakfast ferrous sulfate (IRON) 325 (65 FE) mg tablet Take 1 tablet (325 mg total) by mouth daily with breakfast. 0 Active fexofenadine hydrochloride 180 mg oral tablet (13 sources) Histamine-1 Receptor Antagonist Start: 10-09-2023 take 1 tablet by mouth once daily Fexofenadine Active 1 TAB PO Daily October 09, 2023 12:00am FreeTextSi tablet Orally Once a day; Note: Source Status: Taking; Provider: Jasmine High ( ) take 1 tablet by mouth in the mo rning fexofenadine (ORAL) 180 mg tablet Take 1 tablet (180 mg total) by mouth in the morning. 0 Active Fiber (Guar Gum) 15 Grams (9 sources) take 15 g by mouth once daily Fi jamal (Guar Gum) 15 Grams as directed Orally once a day Active fluticasone propionate 0.05 mg/actuat metered dose nasal spray (13 sources) Corticosteroid Start: 10-09-2023 take 2 spray(s) nasal route once daily Fluticasone Propionate Active 2 SPRAY INTRANASAL Daily October 09, 2023 12:00am FreeTextSi sprays Nasally Once a day; Note: Source Status: Taking; Provider: Jasmine High ( ) Start: 10-06-2017 fluticasone (F LONASE) 50 mcg/actuation nasal spray take 2 spray(s) nasa l route once [...] Oct, Active furosemide 40 mg oral tablet (13 sources) Loop Diuretic Start: 05-09-2024 take 1 tablet by mouth twice daily Furosemide (Lasix) 40 mg tablet Active 40 MG PO Twice daily October 09, 2023 12:00am Start: 10-06-2017 furosemide (LA SIX) 40 mg tablet insulin, regular, human 500 unt/ml injectable solution (13 sources) Insulin Start: 10-09-2023 Insulin Regula r Hum U-500 Conc Active UNIT SUBCUT October 09, 2023 12:00am FreeTextSig: as directed Subcutaneous INSULIN PUMP; Note: Source Status: Taking; Provider: Jasmine High ( ) Start: 10-07-2017 HUMULIN R U-50 0, CONC, [...] Active inulin 2000 mg chewable tabl et (3 sources) inulin (FIBER MMIES) 2 gram tablet,chewable Chew and swallow. 0 Active Iron (9 sources) Iron (Ferrous Gl uconate) 325 MG Orally Active krill oil (10 sources) Start: 10-09-2023 Rrlez-Nx-2-Dha -Mpe-Inktsec-Juv (Krill Oil) 1,101-677-83-80 mg capsule Active 1 CAP PO Twice daily October 09, 2023 12:00am Krill Oil 300 MG Orally Active upbop-ydytl-[id number]-iaa-[id number]-gfbzqp 930-96-31-50 mg capsule (3 sources) siepl-pgyet-8-dh w-moi-myggep 314-29-64-50 mg capsule Take by mouth. 0 Active Lactobacillus acidophilus (3 sources) Lactobacillus ac idophilus (ACIDOPHILUS) capsule Take 1 capsule by mouth in the morning and 1 capsule at noon and 1 capsule in the evening. Take with meals. 0 Active levothyroxine sodium 0.175 m g oral tablet (13 sources) l-Thyro xine Start: 024 Levothyroxine Active 1 TAB P O Every morning October 09, 2023 12:00am FreeTextSi tablet every morning on an empty stomach Orally Once a day; Note: Source Status: Taking; Provider: Jasmine High ( ) Start: 10-07-2017 levothyroxine (SYNTHROID, LEVOTHROID) 150 MCG tablet Levothyroxine So dium 175 MCG 1 tablet every morning on an empty stomach Orally Once a day Active metoprolol tartrate 50 mg oral tablet (13 sources) beta-Adrenergic Ayala Start: 10-09-2023 take 1 tablet by mouth twice daily Metoprolol Tartrate Active 1 TAB PO Twice daily October 09, 2023 12:00am FreeTextSi tablet Orally Twice a day; Note: Source Status: Taking; Provider: Jasmine High ( ) Start: 10-06-2017 metoprolol tar trate (LOPRESSOR) 50 mg tablet montelukast 10 mg oral tablet (13 sources) Leukotriene Receptor Antagonist Start: 10-09-2023 take 1 tablet by mouth once daily Montelukast (Singulair) 10 mg tablet Active 1 TAB PO Daily October 09, 2023 12:00am FreeTextSi tablet Orally Once a day; Note: Source Status: Takingnot surer of doseage; Provider: Jasmine High ( ) Start: 11-03-2017 montelukast (S INGULAIR) 10 mg tablet Qqvyogaj-Wfs-Qotmrjk Sulfate (One Daily Multi-Vit W-Mineral) 4.5 mg iron tablet (1 source) Start: 10-09-2023 take 1 tablet by mouth once daily Cczkeayd-Znj-Msabfsq Sulfate (One Daily Multi-Vit W-Mineral) 4.5 mg iron tablet Active 1 TAB PO daily October 09, 2023 12:00am multivitamin tablet,chewable (3 sources) multivitamin tablet,chewable Chew 2 capsules and swallow. [...] Active ondansetron 4 mg disintegrating oral tablet (3 sources) Serotonin-3 Receptor Antagonist Start: 11-26-19 18 ondansetron ODT (ZOFRAN-ODT) 4 mg disintegrating tablet One Touch Glucometer 1 (3 sources) Start: 11-06-19 17 One Touch Glucometer 1 as directed SQ qid for 365 days Oct, Active pantoprazole 40 mg delayed release oral tablet (13 sources) Proton Pump Inhibitor Start: 10-09-19 24 take 1 tablet by mouth twice daily Pantoprazole (Protonix) 40 mg tablet,delayed release (DR/EC) Active 1 TAB PO Twice daily October 09, 2023 12:00am FreeTextSi tablet Orally bid; Note: Source Status: Taking; Provider: Jasmine High ( ) Start: 11-03-2017 pantoprazole ( PROTONIX) 40 mg EC tablet Pen [place] 5/16 (3 sources) Start: 08-05-2018 Pen [place] 5/ 16 USE WITH PEN INSULIN SQ qid for 90 day(s) Jul, Active plant stanol anisa 450 mg oral tablet (1 source) Start: 10-09-2023 take 1 tablet by mouth once Plant Stanol Anisa Active TAB PO October 09, 2023 12:00am FreeTextSig: Orally; Note: Source Status: TakingTWICE A DAY; Provider: Jasmine High ( ) Polydextrose (Childrens Fiber Gummy Bear) 1.5 gram tablet,chewable (1 source) Start: 10-09-2023 take 1 tablet by mouth once daily Polydextrose (Childrens Fiber Gummy Bear) 1.5 gram tablet,chewable Active 4 GM PO daily October 09, 2023 12:00am pregabalin 100 mg oral capsule (13 sources) Start: 10-09-2023 take 1 capsule by mouth three times daily Pregabalin (Lyrica) 100 mg capsule Active 100 MG PO Three times daily October 09, 2023 12:00am Start: 11-03-2017 LYRICA 75 mg c apsule take 1 capsule by [facility] every eight hours Lyrica 100 MG 1 capsule Orally tid Active Probiotic - (9 sources) Probiotic - Oral ly Active saccharomyces boulardii 250 mg oral capsule (1 source) Start: 10-09-2023 take 1 capsule by mouth twice daily Saccharomyces Boulardii (Daily Probiotic (S. Boulardii)) 250 mg capsule Active 250 MG PO Twice daily October 09, 2023 12:00am Spiriva Respimat 2.5 mcg/actuation (9 sources) Spiriva Respimat 2.5 mcg/actuation 2 puffs daily Active Super B Complex (9 sources) Super B Complex Active tiotropium (3 sources) Anticholinergic take 2 puff(s) by inhalation in the morning tiotropium bromide 1.25 mcg/actuation mist Inhale 2 puffs in the morning. 0 Active traMADol hydrochloride 50 mg oral tablet (5 sources) Opioid Agonist Start: 10-09-19 take 50 mg by mouth every eight hours Tramadol Active 50 MG PO Every 8 hours October 09, 2023 12:00am Start: 10-07-2022 take 1 tablet by eva th every six hours as needed for pain traMADol HCl 50 MG 1 tablet as needed for pain Orally up to every 6 hrs for 7 days ANIYAH: [id number] September, Active triamcinolone acetonide 0.001 mg/mg topical ointment (9 sources) Corticosteroid Start: 10-09-2023 Triamcinolone Acetonide Active APPLIC TOPICAL October 09, 2023 12:00am FreeTextSig: External; Note: Source Status: Taking; Qty: 80 Gram; Provider: Jasmine High ( ) Triamcinolone Ac etonide 0.1 % External for 90 Days Active TRULICITY 4.5 mg/0.5 mL pen injector (3 sources) Start: 07-07-2023 inject 4.5 mg by subcutaneous injection every week TRULICITY 4.5 mg/0.5 mL pen injector Inject 4.5 mg under the skin once a week. Sundays 0 07/07/2023 Active Vitamin B Complex (4 sources) Start: 10-09-2023 take 1 tablet by eva th once daily Vitamin B Complex Active 1 TAB PO Daily October 09, 2023 12:00am vitamin B comple x (SUPER B-50 COMPLEX PLUS ORAL) Take by mouth. 0 Active Vitamin C 250 MG (6 sources) take 1 tablet by mouth once maura y Vitamin C 250 MG 1 tablet Orally Once a day Active vitamin e 180 mg oral capsule (4 sources) Start: 10-09-2023 take 1 capsule by mouth once daily Vitamin E (Dl, Acetate) Active 1 CAP PO Daily October 09, 2023 12:00am FreeTextSi capsule Orally Once a day; Note: Source Status: Taking; Provider: Jasmine High ( ) take 1 capsule by mouth in the m orning vitamin E, dl,tocopheryl acet, (VITAMIN E, DL, ACETATE,) 400 unit capsule Take 1 capsule (400 Units total) by mouth in the morning. 0 Active Vitamin E 400 UNIT (9 sources) take 1 capsule by mouth once aileen ly Vitamin E 400 UNIT 1 capsule Orally Once a day Active Zinc (1 source) take 1 tablet by mouth once daily Zinc 50 MG 1 tablet Orally Once a day Active zinc gluconate 50 mg oral tablet (6 sources) Start: 10-09-2023 take 1 tablet by mouth once daily Zinc Gluconate Active 1 TAB PO Daily October 09, 2023 12:00am FreeTextSi tablet Orally Once a day; Note: Source Status: Taking; Provider: Jasmine High ( ) take 1 tablet by mouth every twe nty-four hours Completed/Discontinued Medications Medication Drug Class(es) Dates [...] Start: 11-11-2022 Durolane Oct, 60 mg nystatin [id number] unt/ml topical cream (1 source) Polyene Antifungal [...] stage 2, GFR 60-89 ml/min] Onset: 2 10-09-2023 Chronic Chronic kidney disease (13 sources) Chronic kidney disease; 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: [Chronic kidney disease, stage III (moderate)] Onset: 2 Resolved: 2 Chronic obstructive pulmonary disease and bronchiectasis (2 sources) Unspecified chronic bronchitis; 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: [Chronic obstructive pulmonary disease with (acute) exacerbation] Onset: 2 Chronic Coronary atherosclerosis and other heart disease (4 sources) Atherosclerotic heart disease of [place] coronary artery without angina pectoris; 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: [Unstable angina] Onset: 4 Chronic Coronary atherosclerosis and other heart disease [...] Essential hypertension; 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: [Essential (primary) hypertension] Chronic Hypertension with complications and secondary hypertension (20 sources) Chronic kidney disease due to hypertension; 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: [Hypertensive chronic kidney disease with stage 1 through stage 4 chronic kidney disease, or unspecified chronic kidney disease] Onset: 2 Resolved: 2 Chronic Nonspecific chest pain (1 source) Chest pain, unspecified; 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: [Chest pain, unspecified] Onset: 8 Episodic Nutritional deficiencies (17 sources) Vitamin D deficiency; 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: [Vitamin D deficiency, unspecified] Onset: 2 Resolved: 2 Chronic Osteoarthritis (20 sources) Osteoarthritis; 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: [DJD (degenerative joint disease)] Onset: 8 Chronic Other aftercare (9 sources) Long-term current use of insulin; 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: [FDC (current) use of insulin] Episodic Other aftercare (9 sources) H/O: high risk medication; 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: [Other exterminator termite (current) drug therapy] Episodic Other diseases of kidney and ureters (9 sources) Renal osteodystrophy; 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: [Renal osteodystrophy] Chronic Other endocrine disorders (9 sources) 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; 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: [Other hypoglycemia] Chronic Other endocrine disorders (7 sources) Hypoparathyroidism; 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: [Hypoparathyroidism, unspecified] 10-09-2023 Chronic Other endocrine disorders (4 sources) Hypoparathyroidism, unspecified; 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: [Hypoparathyroidism] Onset: 3 Chronic Other gastrointestinal disorders (2 sources) Dysphagia; 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: [Dysphagia, unspecified] 08-14-2023 Episodic Other [...] mass index (BMI) 50.0-59.9, adult Chronic Other nutritional; endocrine; and metabolic disorders (1 source) Hyperuricemia; 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: [Hyperuricemia without signs of inflammatory arthritis and tophaceous disease] 10-09-2023 Episodic Other nutritional; endocrine; and metabolic disorders (1 source) Hyperuricemia without signs of inflammatory arthritis and tophaceous disease; 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: [Other abnormal blood chemistry] 10-09-2023 Episodic Other upper respiratory disease (9 sources) Allergic [...] other back problems (1 source) Cervicalgia Episodic Syncope (2 sources) Syncope and collapse; 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: [Syncope and collapse] Onset: 4 Episodic Thyroid disorders (19 sources) Hypothyroidism; 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: [...] EXPOS COVID-19] Onset: 2 Unclassified (1 source) EMS Onset: 4 Unclassified (1 source) Emotional state finding Onset: 4 Unclassified (1 source) Pain in left knee; 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: [Pain in left knee] Onset: 3 Unclassified (1 source) Supraventricular tachycardia, unspecified; 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: [Supraventricular tachycardia, unspecified] Onset: Past or Other Problems Problem Classification Problem Date Documented Date Episodic/Chronic Deficiency and other anemia (1 source) Anemia, unspecified; 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: [ANEMIA UNSPECIFIED] Onset: 02-07-2022 Episodic Fever of unknown origin (4 sources) Fever, unspecified; 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: [FEVER UNSPECIFIED] Onset: 05-13-2022 Episodic Fluid and electrolyte disorders (6 sources) Other disorders of electrolyte and fluid balance, not elsewhere classified; 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: [OTHER D/O ELECTROLYTE AND FL BAL NEC] Onset: 08-02-2021 Resolved: 02-11-2022 Episodic Other aftercare (1 source) Other skilled nursing (current) drug therapy; 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: [OTH HAND MOLDER MEAT CURRENT DRUG THERAPY] Onset: 09-10-2021 Episodic Other aftercare (1 source) [facility] (current) use of insulin; 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: [SENIOR CARE CURRENT USE OF INSULIN] Onset: 09-10-2021 Episodic [...] OTH PART DIGESTV TRACT] Onset: 09-10-2021 Episodic Unclassified (1 source) Supraventricular tachycardia, unspecified; 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: [Supraventricular tachycardia, unspecified] Onset: 11-03-2023 Results Test Name Value Interpretation Reference Range Facility Office Visiton 11-03-2023 Follow-up visit [id number] [facility],Authumn D 1970 F Date Provider Department Center 11/03/2023 271-REBECA VALADEZ CARD [facility] Family History Problem Relation Age of Onset Angina Mother Heart attack Mother Heart attack Maternal Grandfather Family Status - Relation Status Age at Mother Maternal Grandfather Level of Service:10948 SC OFFICE/OUTPATIENT NEW MODERATE MDM 45 MINUTES Normal [facility] Erythrocyte distribution wid th Auto (RBC) [Ratio]on 10-08-2023 Erythrocyte distribution width (RBC) [Ratio] 13.1 % 11.0-15.0 [facility] Estimated glomerular filtrat ion rate (GFR) non- Americanon 10-08-2023 GFR/1.73 sq M.predicted among non-blacks MDRD (S/P/Bld) [Vol rate/Area] 44 mL/min/{1.73_m2} >=60 [facility] Hematocrit Auto (Bld) [Volum e fraction]on 10-08-2023 Hematocrit (Bld) [Volume fraction] 43.0 % 36.0-48.0 [facility] Hemoglobin [Mass/volume] in Bloodon 10-08-2023 Hemoglobin (Bld) [Mass/Vol] 14.1 g/dL 12.0-16.0 [facility] Laboratory - Chemistry and C hemistry - challengeon 10-08-2023 Albumin [Mass/Vol] 3.5 g/dL 3.4-5.[address] [facility] Calcium [Mass/Vol] 9.7 mg/dL 8.5-10.[address] [facility] Chloride [Moles/Vol] 96 mmol/L 98-107 [facility] CO2 [Moles/Vol] 18.7 mmol/L 21.0-32.0 [facility] Creatinine [Mass/Vol] 1.25 mg/dL 0.55-1.02 [facility] GFR/1.73 sq M.predicted MDRD (S/P/Bld) [Vol rate/Area] 54 mL/min/{1.73_m2} >=60 [facility] Glucose [Mass/Vol] 472 mg/dL 74-[address] [facility] Magnesium [Mass/Vol] 2.1 mg/dL 1.8-2.4 [facility] Potassium [Moles/Vol] 4.3 mmol/L 3.5-5.1 [facility] Sodium [Moles/Vol] 135 mmol/L 136-[address] [facility] Urate [Mass/Vol] 13.4 mg/dL 2.6-6.0 [facility] Urea nitrogen [Mass/Vol] 19.0 mg/dL 7.0-18.0 [facility] Urea nitrogen/Creatinine [Mass ratio] 15.2 mg/mg [facility] Laboratory - Urinalysison Protein (U) [Mass/Vol] 36.5 mg/dL <=11.9 [facility] Leukocytes [#/volume] correc will for nucleated erythrocytes in Blood by Automated counon 10-08-2023 WBC corrected for nucl RBC Auto (Bld) [#/Vol] 4.9 10 3/uL 4.0-11.0 [facility] MCH Auto (RBC) [Entitic mass ]on 10-08-2023 MCH (RBC) [Entitic mass] 30.7 pg 26.7-34.0 [facility] MCHC Auto (RBC) [Mass/Vol]on 10-08-2023 MCHC (RBC) [Mass/Vol] 32.8 g/dL 29.9-35.2 [facility] MCV Auto (RBC) [Entitic vol] on 10-08-2023 MCV (RBC) [Entitic vol] 93.7 fL 81.0-99.0 [facility] No Panel Informationon 10-07 25-Hydroxy Vitamin D Total 108.3 ng/mL [facility] Comment on above: <20 ng/mL Vit D defi cient20-<30 ng/mL Vit D obsmylbbulxl85-647 ng/mL Vit D sufficient>100 ng/mL Potential Toxicity Parathyroid Hormone (Intact) 8 pg/mL [facility] Comment on above: Performed at: - [address] [id number] Director: Godwin Menjivar PhD, Phone: [phone] Phosphorus Level 3.6 mg/dL 2.6-4.7 [facility] Urine Random Creatinine 38.95 mg/dL 20.00-300.0 0 [facility] Platelet mean volume Auto (B ld) [Entitic vol]on 10-08-2023 Platelet mean volume (Bld) [Entitic vol] 13.0 fL 9.5-13.5 [facility] Platelets Auto (Bld) [#/Vol] on 10-08-2023 Platelets (Bld) [#/Vol] 144 10 3/uL 150-450 [facility] RBC Auto (Bld) [#/Vol]on RBC (Bld) [#/Vol] 4.59 10 6/uL 4.20-5.40 [facility] Serum or plasma anion gap de terminationon 10-08-2023 Anion gap [Moles/Vol] 24.6 mmol/L [facility] Urine protein/creatinine rat ioon 10-08-2023 Protein/Creatinine (U) [Ratio] 0.94 [facility] EGDon 09-03-2023 [facility] Dylan 09-03-2023 L Specimen: [id number] Received: 09/03/23 Status: SOUFrantz Aldana Num: [id number] Spec Type: Surgical Subm Dr: Antonio Boo DO Tissues: A Gastric Biopsy (ANTRUM) Procedures: HE/2, Gross/Micro L4 Age/ Patient Sex Location Account Attending Physician [facility],Authumn D 53/F LABELL [id number] Antonio Boo DO SPEC NUM: [id number] RECD: 09/03/23 STATUS: [facility] NUM: [id number] KEVIN: 09/03/[address]: Antonio Boo DO ENTERED: 09/03/[address]: Zeny,Lab SPEC TYPE: Surgical DEPT: STEPHEN DUGGAN ORDERED: HE/2, Gross/Micro L4 ORDERED: HE/2, Gross/Micro L4 Pathological Diagnosis Antrum biopsy: -Antral and oxyntic mucosa with superimposed changes of mild chronic reactive gastropathy and focal mild inactive chronic gastritis, including mild stromal expansion with mild petechial congestions, and mildly associated stromal chronic inflammation, including occasionally admixed eosinophils, and mild reactive proliferation of the surface foveolar glands, otherwise without intestinal metaplasia, active erosion, glandular atypia, or overall the significant chronic inflammation identified -Also no other obvious, distinct, or specific features of Helicobacter infection identified on routine H E morphological assessment Clinical Information Gastritis Gross Description Received in formalin with patient name and date of , labeled as antrum biopsy, are 4 grace mucosal pieces of 1-8 mm in sizes each. Totally submitted in cassette A1. Specimen: [id number] Received: 09/03/23 Status: TIEN Chaseefren Num: [id number] Spec Type: Surgical Subm Dr: Atnonio Boo DO Tissues: A Gastric Biopsy (ANTRUM) Procedures: HE/2, Gross/Micro L4 [facility] [id number] (Continued) Specimen: [id number] Received: 09/03/23 (Continued) Signed (signature on file) Eder Mckinney MD 09/06/23 1850 Specimen: [id number] Received: 09/03/23 Status: TIEN Aldana Num: [id number] Spec Type: Surgical Subm Dr: Antonio Boo DO Tissues: A Gastric Biopsy (ANTRUM) Procedures: HE/All, Gross/Micro L4 Patient: Mary Jane Schaeffer [id number] (Continued) Specimen: [id number] Received: 09/03/23 (Continued) CPT Codes 11398 Specimen: [id number] Received: 09/03/23 Status: TIEN Aldana Num: [id number] Spec Type: Surgical Subm Dr: Antonio Boo, Tissues: A Gastric Biopsy (ANTRUM) Procedures: HE/2, Gross/Micro L4 Patient: RolyMary Jane D [id number] (Continued) Signed (signature on file) Eder Mckinney MD 09/06/23 6430 [facility] POCT Rehab GlucoseOrdered By : Jeni Bonilla on 09-03-[email or web address] BRAIN WO CONTon CT BRAIN WO CONT CT BRAIN WO [...] Antonio Elizondo on 08/14/2023 5:19 PM Normal [facility] CT CERVICAL SPINE WO CONTon 08-14-2023 CT [...] Og MD on 08/14/2023 5:30 PM Normal [facility] Albumin [Mass/volume] in Ser um or Plasma by Bromocresol green (BCG) dye binding methoOrdered By: Anila Granados on 04-30-2023 Albumin BCG dye [Mass/Vol] 3.8 g/dL 3.5-5.7 [facility] Automated erythrocytes count in urine sediment (number/area)Ordered By: Anila Granados on 04-30-2023 RBC Auto (Urine sed) [#/Area] 5-9 [HPF] 0-4 [facility] Automated leukocytes count i n urine sediment (number/area)Ordered By: Anila Sellersr on 04-30-2023 WBC Auto (Urine sed) [#/Area] 1-2 [HPF] 0-4 [facility] Bilirubin Test strip Ql (U)O rdered By: Anila Granaods on 04-30-2023 Bilirubin Ql (U) Negative Negative [facility] Calcium [Mass/volume] in Ser um or PlasmaOrdered By: Anila Granados on 04-30-2023 Calcium [Mass/Vol] 9.1 mg/dL 8.6-10.[address] [facility] Carbon dioxide, total [Moles /volume] in Serum or PlasmaOrdered By: Anila Granados on 04-30-2023 CO2 [Moles/Vol] 31.5 mmol/L 21.0-31.0 [facility] Chloride [Moles/volume] in S faviola or PlasmaOrdered By: Anila Granados on 04-30-2023 Chloride [Moles/Vol] 102 mmol/L 98-107 [facility] Color Auto (U)Ordered By: Ab garcia Granados on 04-30-2023 Color (U) Yellow Yellow [facility] Creatinine [Mass/volume] in Serum or PlasmaOrdered By: Anila Granados on 04-30-2023 Creatinine [Mass/Vol] 1.53 mg/dL 0.60-1.20 [facility] Creatinine [Mass/volume] in UrineOrdered By: Anila Granados on 04-30-2023 Creatinine (U) [Mass/Vol] 34.0 mg/dL 11.0-20.0 [facility] Dipstick and Microscopicon 1 06-30-2022 Appearance (U) Clear Normal Clear [facility] Comment on above: Order Comment: Reaso n for Exam Chronic kidney disease, stage III (moderate);Disorders of fl Name Collection Type:: Clean-Voided Midstream Performed By: #### A DDONUAPLUS #### [facility] [address] [place] [address] [place] Bacteria,Urine None Seen Normal None Seen [facility] Comment on above: Order Comment: Reaso n for Exam Chronic kidney disease, stage III (moderate);Disorders of fl Name Collection Type:: Clean-Voided Midstream Performed By: #### A DDONUAPLUS #### [facility] [address] [place] [address] [place] Bilirubin,Urine Negative Normal Negative [facility] Comment on above: Order Comment: Reaso n for Exam Chronic kidney disease, stage III (moderate);Disorders of fl Name Collection Type:: Clean-Voided Midstream Performed By: #### A DDONUAPLUS #### [facility] [address] [place] [address] [place] Color (U) Yellow Normal Yellow [facility] Comment on above: Order Comment: Reaso n for Exam Chronic kidney disease, stage III (moderate);Disorders of fl Name Collection Type:: Clean-Voided Midstream Performed By: #### A DDONUAPLUS #### [facility] [address] [place] [address] [place] Glucose Ql (U) Normal Normal Normal [facility] Comment on above: Order Comment: Reaso n for Exam Chronic kidney disease, stage III (moderate);Disorders of fl Name Collection Type:: Clean-Voided Midstream Performed By: #### A DDONUAPLUS #### [facility] [address] [place] [address] [place] Hyaline Casts,Urine None Seen Normal 0-8 [facility] Comment on above: Order Comment: Reaso n for Exam Chronic kidney disease, stage III (moderate);Disorders of fl Name Collection Type:: Clean-Voided Midstream Result Comment: PERF ORMED BY: [place] [address] PATHOLOGIST DIRECTOR ENERGY MEERA GRIFFITHS M.D. Performed By: #### A DDONUAPLUS #### [facility] [address] [place] [address] [place] Ketones Ql (U) Negative Normal Negative [facility] Comment on above: Order Comment: Reaso n for Exam Chronic kidney disease, stage III (moderate);Disorders of fl Name Collection Type:: Clean-Voided Midstream Performed By: #### A DDONUAPLUS #### [facility] [address] [place] [address] Leukocyte esterase Test strip Ql (U) 1+ High Negative [facility] Comment on above: Order Comment: Reaso n for Exam Chronic kidney disease, stage III (moderate);Disorders of fl Name Collection Type:: Clean-Voided Midstream Performed By: #### A DDONUAPLUS #### [place] [address] [place] Nitrite,Urine Negative Normal Negative [facility] Comment on above: Order Comment: Reaso n for Exam Chronic kidney disease, stage III (moderate);Disorders of fl Name Collection Type:: Clean-Voided Midstream Performed By: #### A DDONUAPLUS #### [address] Occult Blood,Urine Negative Normal Negative [facility] Comment on above: Order Comment: Reaso n for Exam Chronic kidney disease, stage III (moderate);Disorders of fl Name Collection Type:: Clean-Voided Midstream Performed By: #### A DDONUAPLUS #### [place] [address] [place] pH (U) 6.5 [pH] Normal 5.0-9.0 [facility] Comment on above: Order Comment: Reaso n for Exam Chronic kidney disease, stage III (moderate);Disorders of fl Name Collection Type:: Clean-Voided Midstream Performed By: #### A DDONUAPLUS #### [place] [address] [place] Protein,Urine Negative Normal Negative [facility] Comment on above: Order Comment: Reaso n for Exam Chronic kidney disease, stage III (moderate);Disorders of fl Name Collection Type:: Clean-Voided Midstream Performed By: #### A DDONUAPLUS #### [place] [address] [place] RBC,Urine 5-9 High 0-4 [facility] Comment on above: Order Comment: Reaso n for Exam Chronic kidney disease, stage III (moderate);Disorders of fl Name Collection Type:: Clean-Voided Midstream Performed By: #### A DDONUAPLUS #### [address] Specificy Chloride,Urine 1.010 Normal 1.001-1.030 [facility] Comment on above: Order Comment: Reaso n for Exam Chronic kidney disease, stage III (moderate);Disorders of fl Name Collection Type:: Clean-Voided Midstream Performed By: #### A DDONUAPLUS #### [address] Squamous Epithelial Cell,Urine 0-1 Normal 0-2 [facility] Comment on above: Order Comment: Reaso n for Exam Chronic kidney disease, stage III (moderate);Disorders of fl Name Collection Type:: Clean-Voided Midstream Performed By: #### A DDONUAPLUS #### [facility] [address] [place] [address] Urobilinogen,Urine Normal Normal Normal [facility] Comment on above: Order Comment: Reaso n for Exam Chronic kidney disease, stage III (moderate);Disorders of fl Name Collection Type:: Clean-Voided Midstream Performed By: #### A DDONUAPLUS #### [address] WBC,Urine 1-2 Normal 0-4 [facility] Comment on above: Order Comment: Reaso n for Exam Chronic kidney disease, stage III (moderate);Disorders of fl Name Collection Type:: Clean-Voided Midstream Performed By: #### A DDONUAPLUS #### [facility] [address] [place] [address] Erythrocyte distribution wid th Auto (RBC) [Ratio]Ordered By: Anila Granados on 04-30-2023 Erythrocyte distribution width (RBC) [Ratio] 14.9 % 11.9-15.3 [facility] Glucose [Mass/volume] in Ser um or PlasmaOrdered By: Anila Granados on 04-30-2023 Glucose [Mass/Vol] 244 mg/dL 70-[address] [facility] Comment on above: ADA recommended refe rence rangeRandom Glucose Reference Range is dependent on time and content of last meal. Glucose of more than 200 mg/dL in a nonstressed, ambulatory subject supports the diagnosis of Diabetes Mellitus. Hematocrit Auto (Bld) [Volum e fraction]Ordered By: Anila Granados on 04-30-2023 Hematocrit (Bld) [Volume fraction] 38.6 % 34.0-46.4 [facility] Hemoglobin [Mass/volume] in BloodOrdered By: Anila Granados on 04-30-2023 Hemoglobin (Bld) [Mass/Vol] 12.7 g/dL 11.8-15.4 [facility] Hemogram CBC Without Diffon 04-30-2023 Erythrocyte distribution width (RBC) [Ratio] 14.9 % Normal 11.9-15.3 [facility] Comment on above: Order Comment: Reaso n for Exam Chronic kidney disease, stage III (moderate);Disorders of fl Performed By: #### C BCNO #### [address] Hematocrit (Bld) [Volume fraction] 38.6 % Normal 34.0-46.4 [facility] Comment on above: Order Comment: Reaso n for Exam Chronic kidney disease, stage III (moderate);Disorders of fl Performed By: #### C BCNO #### [address] Hemoglobin (Bld) [Mass/Vol] 12.7 g/dL Normal 11.8-15.4 [facility] Comment on above: Order Comment: Reaso n for Exam Chronic kidney disease, stage III (moderate);Disorders of fl Performed By: #### C BCNO #### [address] MCH (RBC) [Entitic mass] 31.6 pg Normal 24.7-34.3 [facility] Comment on above: Order Comment: Reaso n for Exam Chronic kidney disease, stage III (moderate);Disorders of fl Performed By: #### C BCNO #### [place] [address] [place] MCV (RBC) [Entitic vol] 96.3 fL Normal 80-100 F [facility] Comment on above: Order Comment: Reaso n for Exam Chronic kidney disease, stage III (moderate);Disorders of fl Performed By: #### C BCNO #### [address] Mean Corpuscular HGB Conc 32.8 g/dL Normal 32.0-35.0 [facility] Comment on above: Order Comment: Reaso n for Exam Chronic kidney disease, stage III (moderate);Disorders of fl Performed By: #### C BCNO #### [address] Platelet mean volume (Bld) [Entitic vol] 10.8 fL High 6.3-10.7 [facility] Comment on above: Order Comment: Reaso n for Exam Chronic kidney disease, stage III (moderate);Disorders of fl Result Comment: PERF ORMED BY: [place] [address] PATHOLOGIST DIRECTOR ENERGY MEERA GRIFFITHS M.D. Performed By: #### C BCNO #### [address] Platelets (Bld) [#/Vol] 164 10*3/uL Normal 150-450 [facility] Comment on above: Order Comment: Reaso n for Exam Chronic kidney disease, stage III (moderate);Disorders of fl Performed By: #### C BCNO #### [address] RBC (Bld) [#/Vol] 4.01 10*6/uL Normal 3.60-5.00 [facility] Comment on above: Order Comment: Reaso n for Exam Chronic kidney disease, stage III (moderate);Disorders of fl Performed By: #### C BCNO #### [address] WBC (Bld) [#/Vol] 5.2 10*3/uL Normal 3.8-11.[address] [facility] Comment on above: Order Comment: Reaso n for Exam Chronic kidney disease, stage III (moderate);Disorders of fl Performed By: #### C BCNO #### [facility] [address] Ketones Auto test strip (U) [Mass/Vol]Ordered By: Anila Granados on 04-30-2023 Ketones (U) [Mass/Vol] Negative Negative [facility] Laboratory - UrinalysisOrder ed By: Anila Granados on 04-30-2023 Hyaline casts LM Ql (Urine sed) None seen [LPF] 0-8 [facility] Leukocytes [#/volume] correc will for nucleated erythrocytes in Blood by Automated counOrdered By: Anila Granados on 04-30-2023 WBC corrected for nucl RBC Auto (Bld) [#/Vol] 5.2 10*3/uL 3.8-11.6 [facility] MCH Auto (RBC) [Entitic mass ]Ordered By: Anila Granados on 04-30-2023 MCH (RBC) [Entitic mass] 31.6 pg 24.7-34.3 [facility] MCHC Auto (RBC) [Mass/Vol]Or dered By: Anila Granados on 04-30-2023 MCHC (RBC) [Mass/Vol] 32.8 g/dL 32.0-35.0 [facility] MCV Auto (RBC) [Entitic vol] Ordered By: Anila Granados on 04-30-2023 MCV (RBC) [Entitic vol] 96.3 fL 80-100 F [facility] Magnesiumon 04-30-2023 Magnesium [Mass/Vol] 1.9 mg/dL Normal 1.9-2.7 [facility] Comment on above: Order Comment: Reaso n for Exam Chronic kidney disease, stage III (moderate);Disorders of fl Performed By: #### U FERNANDO, RENAL, MG, [id number] #### [facility] [address] Magnesium [Mass/volume] in S faviola or PlasmaOrdered By: Anila Granados on 04-30-2023 Magnesium [Mass/Vol] 1.9 mg/dL 1.9-2.7 [facility] Nitrite Test strip Ql (U)Ord ered By: Anila Granados on 04-30-2023 Nitrite Ql (U) Negative Negative [facility] No Panel InformationOrdered By: Anila Granados on 04-30-2023 Estimated GFR (CKD-EPI) 40.189 mL/Min [facility] Creatinine Clearance (Chem N/A [facility] Parathyrin.intact [Mass/volu me] in Serum or PlasmaOrdered By: Anila Granados on 04-30-2023 Parathyrin.intact [Mass/Vol] 19.7 pg/mL [facility] Parathyroid Hormone Intacton 04-30-2023 Parathyroid Hormone Intact 19.7 pg/mL Normal [facility] Comment on above: Order Comment: Reaso n for Exam Chronic kidney disease, stage III (moderate);Disorders of fl Result Comment: PERF ORMED BY: [place] [address] PATHOLOGIST DIRECTOR ENERGY MEERA GRIFFITHS M.D. Performed By: #### P #### [address] Phosphate [Mass/volume] in S faviola or PlasmaOrdered By: Anila Granados on 04-30-2023 Phosphate [Mass/Vol] 4.1 mg/dL 2.5-4.5 [facility] Platelet mean volume Auto (B ld) [Entitic vol]Ordered By: Anila Granados on 04-30-2023 Platelet mean volume (Bld) [Entitic vol] 10.8 fL 6.3-10.7 [facility] Platelets Auto (Bld) [#/Vol] Ordered By: Anila Granados on 04-30-2023 Platelets (Bld) [#/Vol] 164 10*3/uL 150-450 [facility] Potassium [Moles/volume] in Serum or PlasmaOrdered By: Anila Granados on 04-30-2023 Potassium [Moles/Vol] 4.0 mmol/L 3.5-5.1 [facility] Protein Auto test strip (U) [Mass/Vol]Ordered By: Anila Granados on 04-30-2023 Protein (U) [Mass/Vol] Negative Negative [facility] Protein Creat Ratio Ur Rando mon 04-30-2023 Creatinine, Urine (Random) 34.0 mg/dL High 11.0-20.0 [facility] Comment on above: Order Comment: Reaso n for Exam Chronic kidney disease, stage III (moderate);Disorders of fl Performed By: #### P ROCRERAT #### [facility] [address] [place] [address] [place] Protein (U) [Mass/Vol] 4 mg/dL Normal 0-9 [facility] Comment on above: Order Comment: Reaso n for Exam Chronic kidney disease, stage III (moderate);Disorders of fl Performed By: #### P ROCRERAT #### [facility] [address] [place] [address] Urine Protein/Creatinine Ratio 118 mg/g{Cre} Normal 0-200 [facility] Comment on above: Order Comment: Reaso n for Exam Chronic kidney disease, stage III (moderate);Disorders of fl Result Comment: PERF ORMED BY: [place] [address] PATHOLOGIST DIRECTOR ENERGY MEERA GRIFFITHS M.D. Performed By: #### P ROCRERAT #### [facility] [address] [place] [address] [place] Protein [Mass/volume] in Uri neOrdered By: Anila Granados on 04-30-2023 Protein (U) [Mass/Vol] 4 mg/dL 0-9 [facility] RBC Auto (Bld) [#/Vol]Ordere d By: Anila Jasmine on 04-30-2023 RBC (Bld) [#/Vol] 4.01 10*6/uL 3.60-5.00 [facility] Renal Function Panelon 04-30 Albumin [Mass/Vol] 3.8 g/dL Normal 3.5-5.[address] [facility] Comment on above: Order Comment: Reaso n for Exam Chronic kidney disease, stage III (moderate);Disorders of fl Performed By: #### U FERNANDO, RENAL, MG, [id number] #### [facility] [address] Anion gap [Moles/Vol] 12.5 mmol/L Normal 6.0-15.0 [facility] Comment on above: Order Comment: Reaso n for Exam Chronic kidney disease, stage III (moderate);Disorders of fl Performed By: #### U FERNANDO, RENAL, MG, [id number] #### [facility] [address] Calcium [Mass/Vol] 9.1 mg/dL Normal 8.6-10.[address] [facility] Comment on above: Order Comment: Reaso n for Exam Chronic kidney disease, stage III (moderate);Disorders of fl Performed By: #### U FERNANDO, RENAL, MG, [id number] #### [facility] [address] [place] [address] Chloride [Moles/Vol] 102 mmol/L Normal 98-107 [facility] Comment on above: Order Comment: Reaso n for Exam Chronic kidney disease, stage III (moderate);Disorders of fl Performed By: #### U FERNANDO, RENAL, MG, [id number] #### [address] CO2 [Moles/Vol] 31.5 mmol/L High 21.0-31.0 [facility] Comment on above: Order Comment: Reaso n for Exam Chronic kidney disease, stage III (moderate);Disorders of fl Performed By: #### U FERNANDO, RENAL, MG, [id number] #### [facility] [address] [place] [id number] [facility] Creatinine [Mass/Vol] 1.53 mg/dL High 0.60-1.20 [facility] Comment on above: Order Comment: Reaso n for Exam Chronic kidney disease, stage III (moderate);Disorders of fl Performed By: #### U FERNANDO, RENAL, MG, [id number] #### [facility] [address] [place] [id number] [facility] GFR/1.73 sq M.predicted MDRD (S/P/Bld) [Vol rate/Area] 40.189 mL/min/{1.73_m2} Normal [facility] Comment on above: Order Comment: Reaso n for Exam Chronic kidney disease, stage III (moderate);Disorders of fl Performed By: #### U FERNANDO, RENAL, MG, [id number] #### [address] Glucose [Mass/Vol] 244 mg/dL High 70-[address] [facility] Comment on above: Order Comment: Reaso n for Exam Chronic kidney disease, stage III (moderate);Disorders of fl Result Comment: [facility] Glucose Reference Range is dependent on time and content of last meal. Glucose of more than 200 mg/dL in a nonstressed, ambulatory subject supports the diagnosis of Diabetes Mellitus. ADA recommended reference range Performed By: #### U FERNANDO, RENAL, MG, [id number] #### [address] Phosphate [Mass/Vol] 4.1 mg/dL Normal 2.5-4.5 [facility] Comment on above: Order Comment: Reaso n for Exam Chronic kidney disease, stage III (moderate);Disorders of fl Performed By: #### U FERNANDO, RENAL, MG, [id number] #### [place] [address] [place] Potassium [Moles/Vol] 4.0 mmol/L Normal 3.5-5.1 [facility] Comment on above: Order Comment: Reaso n for Exam Chronic kidney disease, stage III (moderate);Disorders of fl Performed By: #### U FERNANDO, RENAL, MG, [id number] #### [place] [address] [place] Sodium [Moles/Vol] 142 mmol/L Normal 136-[address] [facility] Comment on above: Order Comment: Reaso n for Exam Chronic kidney disease, stage III (moderate);Disorders of fl Performed By: #### U FERNANDO, RENAL, MG, [id number] #### [address] [place] [address] [place] Urea nitrogen [Mass/Vol] 46 mg/dL High 12-24 [facility] Comment on above: Order Comment: Reaso n for Exam Chronic kidney disease, stage III (moderate);Disorders of fl Performed By: #### U FERNANDO, RENAL, MG, [id number] #### [address] Serum or plasma anion gap de terminationOrdered By: Anila Jasmine on 04-30-2023 Anion gap [Moles/Vol] 12.5 mmol/L 6.0-15.0 [facility] Sodium [Moles/volume] in Ser um or PlasmaOrdered By: Anila Jasmine on 04-30-2023 Sodium [Moles/Vol] 142 mmol/L 136-[address] [facility] Specific gravity Auto test s trip (U) [Rel density]Ordered By: Anila Jasmine on 04-30-2023 Specific gravity (U) [Rel density] 1.010 1.001-1.030 [facility] Squamous epithelial cells de tection in urine sediment by light microscopyOrdered By: Anila Jasmine on 04-30-2023 Epithelial cells.squamous LM Ql (Urine sed) 0-1 [HPF] 0-2 [facility] Urate [Mass/volume] in Serum or PlasmaOrdered By: Anila Jasmine on 04-30-2023 Urate [Mass/Vol] 5.8 mg/dL 2.3-6.6 [facility] Urea nitrogen [Mass/volume] in Serum or PlasmaOrdered By: Anila Jasmine on 04-30-2023 Urea nitrogen [Mass/Vol] 46 mg/dL 12-24 [facility] Uric Acidon 04-30-2023 Urate [Mass/Vol] 5.8 mg/dL Normal 2.3-6.6 [facility] Comment on above: Order Comment: Reaso n for Exam Chronic kidney disease, stage III (moderate);Disorders of fl Performed By: #### U FERNANDO, RENAL, MG, [id number] #### [facility] [address] [place] [address] [place] Urine bacteria detection by automated methodOrdered By: Anila Granados on 04-30-2023 Bacteria Auto Ql (U) None seen None Seen [facility] Urine clarity by refractomet ry automatedOrdered By: Anila Granados on 04-30-2023 Clarity Refractometry automated (U) Clear Clear [facility] Urine glucose measurement by automated test strip (mass/volume)Ordered By: Anila Granados on 04-30-2023 Glucose Auto test strip (U) [Mass/Vol] Normal mg/dL Normal [facility] Urine hemoglobin detection b y automated test stripOrdered By: Anila Granados on 04-30-2023 Hemoglobin Auto test strip Ql (U) Negative Negative [facility] Urine leukocyte esterase det ection by automated test stripOrdered By: Anila Granados on 04-30-2023 Leukocyte esterase Auto test strip Ql (U) 1+ Negative [facility] Urine protein/creatinine rat ioOrdered By: Anila Granados on 04-30-2023 Protein/Creatinine (U) [Ratio] 118 mg/g{Cre} 0-200 [facility] Urobilinogen Auto test strip (U) [Mass/Vol]Ordered By: Anila Granados on 04-30-2023 Urobilinogen (U) [Mass/Vol] Normal mg/dL Normal [facility] Vitamin D 25 Hydroxy Totalon 04-30-2023 Vitamin D 25 Hydroxy Total 68.6 ng/mL Normal 30-100 [facility] Comment on above: Order Comment: Reaso n for Exam Chronic kidney disease, stage III (moderate);Disorders of fl Result Comment: GAYATRI MIN D STATUS 25(OH)VITAMIN D RANGE (ng/mL) Deficient <20 Insufficient 20 to <30 Sufficient 30 to 100 Reference: Amilcar MF,Milo NC, Vero-Tomas TELLEZ, et al. Evaluation,treatment, and prevention of vitamin D deficiency; an Endocrine Society clinical practice guideline. JCEM. 2010; 96(7):1911-30. PERFORMED BY: [facility] Diaz [place] [address] PATHOLOGIST DIRECTOR ENERGY MEERA GRIFFITHS M.D. Performed By: #### U FERNANDO, RENAL, MG, [id number] #### [place] [id number] [facility] Vitamin D+Metabolites [Mass/ volume] in Serum or PlasmaOrdered By: Anila Granados on 04-30-2023 Vitamin D+Metabolites [Mass/Vol] 68.6 ng/mL 30-100 [facility] Comment on above: VITAMIN D STATUS 25( OH)VITAMIN D RANGE (ng/mL) Deficient <20 Insufficient 20 to <30Sufficient 30 to 100Reference: Amilcar MF,Milo PENA, Adrián TELLEZ, et al. Evaluation,treatment, and prevention of vitamin D deficiency; an Endocrine Society clinical practice guideline. JCEM. 2010; 96(7):1911-30. pH Auto test strip (U)Ordere d By: Anila Granados on 04-30-2023 pH (U) 6.5 [pH] 5.0-9.0 [facility] XR knee LT 2Von 09-23-2022 XR knee LT 2V [facility] [place] [address] [place], [place] [id number] XRay Report Signed Patient: Mary Jane Schaeffer MR#: [id number] : 1970 Acct:[id number] Age/Sex: 52 / F ADM Date: 09/23/22 [place]: [facility] [place]: Type: [facility] Attending Dr: Arthur Moy MD Copies to: [...] 5:10 PM Dictation Location: RADIO-PC-10 Transcribed By: [facility] 09/23/221709 Dictated By: Kim Coleman MD 09/23/221707 Signed By: 09/23/221709 Normal [facility] PTH INTACTon 08-14-2022 PTH, Intact 12 pg/mL Critically low 15-65 [facility] Comment on above: Performed By: #### I NSULIN #### [facility] [address] [place] [address] Dr. Jose Mckinney HEMOGRAM AND PLATELon 2022 Hematocrit (Bld) [Volume fraction] 38.7 % Normal 36.0-48.0 [facility] Comment on above: Performed By: #### U RTPCR #### [facility] [address] [place] [address] Dr. Jose Mckinney Hemoglobin (Bld) [Mass/Vol] 12.7 g/dL Normal 12.0-16.0 [facility] Comment on above: Performed By: #### U RTPCR #### [facility] [address] [place] [address] Dr. Jose Mckinney MCH (RBC) [Entitic mass] 30.5 pg Normal 26.7-34.0 [facility] Comment on above: Performed By: #### U RTPCR #### [facility] [address] [place] [address] Dr. Jose Mckinney MCHC (RBC) [Mass/Vol] 32.8 g/dL Normal 29.9-35.2 [facility] Comment on above: Performed By: #### U RTPCR #### [facility] [address] [place] [address] Dr. Jose Mckinney MCV (RBC) [Entitic vol] 92.8 fL Normal 81.0-99.0 [facility] Comment on above: Performed By: #### U RTPCR #### [facility] [address] [address] [address] Jose Mckinney PLT 223 103/ul Normal 150-450 [facility] Comment on above: Performed By: #### U RTPCR #### [facility] [address] [address] [address] Jose Mckinney RBC 4.17 106/ul Critically low 4.20-5.40 [facility] Comment on above: Performed By: #### U RTPCR #### [facility] [address] [address] [address] Jose Mckinney WBC 7.0 103/ul Normal 4.0-11.0 [facility] Comment on above: Performed By: #### U RTPCR #### [facility] [address] [place] [address] Dr. Jose Mckinney MAGNESIUMon 08-13-2022 Magnesium [Mass/Vol] 1.9 mg/dL Normal 1.8-2.4 [facility] Comment on above: Performed By: #### U FERNANDO, RENAL, MG #### [facility] [address] [address] [address] Jose Mckinney RENAL FUNCTION PANELon 08-13 Albumin [Mass/Vol] 3.6 g/dL Normal 3.4-5.0 [facility] Comment on above: Performed By: #### U FERNANDO, RENAL, MG #### [facility] [address] [address] [address] Jose Mckinney Calcium [Mass/Vol] 9.3 mg/dL Normal 8.5-10.1 [facility] Comment on above: Performed By: #### U FERNANDO, RENAL, MG #### [facility] [address] [address] [address] Jose Mckinney Chloride [Moles/Vol] 104 mmol/L Normal 98-107 [facility] Comment on above: Performed By: #### U FERNANDO, RENAL, MG #### [facility] [address] [address] [address] Jose Mckinney CO2 [Moles/Vol] 28.3 mmol/L Normal 21.0-32.0 [facility] Comment on above: Performed By: #### U FERNANDO, RENAL, MG #### [facility] [address] [place] [address] Dr. Jose Mckinney Creatinine [Mass/Vol] 1.34 mg/dL Critically high 0.55-1.02 [facility] Comment on above: Performed By: #### U FERNANDO, RENAL, MG #### [facility] [address] [place] [address] Dr. Jose Mckinney EGFR-AF BAHAMIAN 50 mL/min/1.73m2 Critically low >=60 [facility] Comment on above: Performed By: #### U FERNANDO, RENAL, MG #### [facility] [address] [place] [address] Dr. Jose Mckinney EGFR-NON AF BAHAMIAN 41 mL/min/1.73m2 Critically low >=60 [facility] Comment on above: Performed By: #### U FERNANDO, RENAL, MG #### [facility] [address] [place] [address] Dr. Jose Mckinney Glucose [Mass/Vol] 226 mg/dL Critically high 74-106 [facility] Comment on above: Performed By: #### U FERNANDO, RENAL, MG #### [facility] [address] [place] [address] Dr. Jsoe Mckinney Phosphate [Mass/Vol] 4.6 mg/dL Normal 2.6-4.7 [facility] Comment on above: Performed By: #### U FERNANDO, RENAL, MG #### [facility] [address] [place] [address] Dr. Jose Mckinney Potassium [Moles/Vol] 4.4 mmol/L Normal 3.5-5.1 [facility] Comment on above: Performed By: #### U FERNANDO, RENAL, MG #### [facility] [address] [place] [address] Dr. Jose Mckinney Sodium [Moles/Vol] 138 mmol/L Normal 136-145 [facility] Comment on above: Performed By: #### U FERNANDO, RENAL, MG #### [facility] [address] [address] [address] Jose Mckinney Urea nitrogen [Mass/Vol] 27.0 mg/dL Critically high 7.0-18 .0 [facility] Comment on above: Performed By: #### U FERNANDO, RENAL, MG #### [facility] [address] [place] [address] Dr. Jose Mckinney UA RANDOM W/MICROSCOPICon BACTERIA NONE SEEN Normal NONE SEEN [facility] Comment on above: Performed By: #### U AMIC #### [facility] [address] [place] [address] Dr. Jose Mckinney Bilirubin Ql (U) Negative Normal NEGATIVE [facility] Comment on above: Performed By: #### U AMIC #### [facility] [address] [place] [address] Dr. Jose Mckinney CAST NONE SEEN Normal NONE SEEN [facility] Comment on above: Performed By: #### U AMIC #### [facility] [address] [address] [address] Jose Mckinney Clarity (U) CLEAR Normal CLEAR [facility] Comment on above: Performed By: #### U AMIC #### [facility] [address] [place] [address] Dr. Jose Mckinney Color (U) YELLOW Normal YELLOW [facility] Comment on above: Performed By: #### U AMIC #### [facility] [address] [place] [address] Dr. Jose Mckinney Crystals LM Nom (Urine sed) NONE SEEN Normal NONE SEEN [facility] Comment on above: Performed By: #### U AMIC #### [facility] [address] [place] [address] Dr. Jose Mckinney Epithelial cells LM Ql (Urine sed) NONE SEEN Normal NONE SEEN /RARE [facility] Comment on above: Performed By: #### U AMIC #### [facility] [address] [place] [address] Dr. Jose Mckinney Glucose Ql (U) 250 mg/dl Abnormal NEGATIVE [facility] Comment on above: Performed By: #### U AMIC #### [facility] [address] [address] [address] Jose Mckinney Hemoglobin Ql (U) Negative Normal NEGATIVE [facility] Comment on above: Performed By: #### U AMIC #### [facility] [address] [address] [address] Jose Mckinney Ketones Ql (U) Negative Normal NEGATIVE [facility] Comment on above: Performed By: #### U AMIC #### [facility] [address] [address] [address] Jose Mckinney LEUKOCYTES Negative Normal NEGATIVE [facility] Comment on above: Performed By: #### U AMIC #### [facility] [address] [address] [address] Jose Mckinney MUCOUS NONE SEEN Normal NONE SEEN [facility] Comment on above: Performed By: #### U AMIC #### [facility] [address] [place] [address] Dr. Jose Mckinney Nitrite Ql (U) Negative Normal NEGATIVE [facility] Comment on above: Performed By: #### U AMIC #### [facility] [address] [place] [address] Dr. Jose Mckinney pH (U) 6.5 [pH] Normal 5-9 [facility] Comment on above: Performed By: #### U AMIC #### [facility] [address] [place] [address] Dr. Jose Mckinney RBC 0-2 Normal 0-2 [facility] Comment on above: Performed By: #### U AMIC #### [facility] [address] [place] [address] Dr. Jose Mckinney SPEC GRAVITY 1.020 Normal 1.005-<=1.02 5 [facility] Comment on above: Performed By: #### U AMIC #### [facility] [address] [place] [address] Dr. Jose Mckinney UA PROTEIN Negative Normal NEGATIVE/ TRACE [facility] Comment on above: Performed By: #### U AMIC #### [facility] [address] [place] [address] Dr. Jose Mckinney Urobilinogen Qn (U) 0.2 {Betsy'U}/dL Normal 0.2 - 1. 0 [facility] Comment on above: Performed By: #### U AMIC #### [facility] [address] [place] [address] Dr. Jose Mckinney WBC NONE SEEN Normal NONE SEEN [facility] Comment on above: Performed By: #### U AMIC #### [facility] [address] [place] [address] Dr. Jose Mckinney URIC ACID SERUMon 08-13-2022 Urate [Mass/Vol] 4.1 mg/dL Normal 2.6-6.0 [facility] Comment on above: Performed By: #### U FERNANDO, RENAL, MG #### [facility] [address] [place] [address] Dr. Jose Mckinney URINE T PROTEIN CREAT RATIOo n 08-13-2022 Protein (U) [Mass/Vol] 13.5 mg/dL Critically high <=12.0 [facility] Comment on above: Performed By: #### U RTPCR #### [facility] [address] [place] [address] Dr. Jose Mckinney UR PROT CREAT RAT 0.16 Normal [address] [facility] Comment on above: Performed By: #### U RTPCR #### [facility] [address] [place] [address] Dr. Jose Mckinney URINE CREAT 83.00 mg/dL Normal 20.00-300.[address] [facility] Comment on above: Performed By: #### U RTPCR #### [facility] [address] [place] [address] Dr. Jose Mckinney VITAMIN D 25 OHon 08-13-2022 VIT D 25-OH 54.4 ng/mL Normal [facility] Comment on above: Performed By: #### C BC #### [facility] [address] [place] [address] Dr. Jose Mckinney VIT D RANGES SEE BELOW Normal [facility] Comment on above: Result Comment: <20 ng/mL Vit D deficient 20 - <30 ng/mL Vit D insufficient 30 - 100 ng/mL Vit D sufficient >100 ng/mL Potential Toxicity Performed By: #### C BC #### [facility] [address] [place] [address] Dr. Jose Mckinney Covid-19 PCR ([facility])on 05-02 SARS-CoV-2 (COVID-19) RNA CHILO+probe Ql (Unsp spec) Not detected Normal NOT DETECTED [facility] Comment on above: Result Comment: This test is not yet approved or cleared by the [place] FDA. When there are no FDA-approved or cleared tests available, and other criteria are met, FDA can make tests available under an emergency access mechanism called an Emergency Use Authorization (EUA). The EUA for this test is supported by the Fish Hatchery Inspector of Health and Human Service's (HHS's) declaration [...] SARS-CoV-2. Performed By: #### C BC #### [facility] [address] [place] [address] Dr. Jose Mckinney INFLUENZA A AND B AGon 05-13 [facility] SEE BELOW Normal [facility] Comment on above: Result Comment: Nega tive for Flu A protein angiten. Infection due to Flu A cannot be ruled out. Flu A angiten in the sample may be below the detection limit of the test. Performed By: #### C BC #### [facility] [address] [place] [address] Dr. Jose [facility]ck[facility] BEL[facility] Normal [facility] Comment on above: Result Comment: Nega tive for Flu B protein antigen. Infection due to Flu B cannot be ruled out. Flu B antigen in the sample may be below the detection limit of the test. Performed By: #### C BC #### [facility] [address] [place] [address] Dr. Jose Mckinney INFLUENZA A AG Negative Normal NEGATIVE SEE COMMENT [facility] Comment on above: Performed By: #### C BC #### [facility] [address] [place] [address] Dr. Jose Mckinney INFLUENZA B AG Negative Normal NEGATIVE SEE COMMENT [facility] Comment on above: Performed By: #### C BC #### [facility] [address] [address] [address] Jose Mckinney INTERNAL CONTROLS Within Normal Limits Normal Wi thin Normal Limits [facility] Comment on above: Performed By: #### C BC #### [facility] [address] [place] [address] Dr. Jose Mckinney INSULINon 02-07-2022 Insulin 191.0 uIU/mL Critically high 2.6-24.9 [facility] Comment on above: Performed By: #### I NSULIN #### [facility] [address] [place] [address] Dr. Jose Mckinney PTH INTACTon 02-07-2022 PTH, Intact 13 pg/mL Critically low 15-65 [facility] Comment on above: Performed By: #### C BC #### [facility] [address] [place] [address] Dr. Jose Mckinney T4, T3U, FTI [facility] 02-07 Free Thyroxine Index 2.3 Normal 1.2-4.9 [facility] Comment on above: Performed By: #### C BC #### [facility] [address] [place] [address] Dr. Jose Mckinney T3 Uptake 23 % Critically low 24-[address] [facility] Comment on above: Performed By: #### C BC #### [facility] [address] [place] [address] Dr. Jose Mckinney T4 [Mass/Vol] 10.2 ug/dL Normal 4.5-12.0 [facility] Comment on above: Performed By: #### C BC #### [facility] [address] [place] [address] Dr. Jose Mckinney VIT D 25-OH [facility] 2021 Vitamin D, 25-Hydroxy 43.3 ng/mL Normal 30.0-100.0 [facility] Comment on above: Result Comment: Gayatri min D deficiency has been defined by the [place] [employer] and an Endocrine Society practice guideline as a level of serum 25-OH vitamin D less than 20 ng/mL (1,2). The Endocrine Society went on to further define vitamin D insufficiency as a level between 21 and 29 ng/mL (2). 1. IOM ([place] [employer]). 2010. Dietary reference intakes for calcium and D. [place]: The National Academies Press. 2. Amilcar MF, Milo NC, Adrián TELLEZ, et al. Evaluation, treatment, and prevention of vitamin D deficiency: an Endocrine Society clinical practice guideline. JCEM. 2010; 96(7):1911-30. Performed By: #### C BC #### [facility] [address] [place] [address] Dr. Jose Mckinney CBC AUTO DIFFon 02-06-2022 BASO # 0.0 103/ul Normal 0.0-0.1 [facility] Comment on above: Performed By: #### U RTPCR #### [facility] [address] [place] [address] Dr. Jose Mckinney Basophils/100 WBC (Bld) 0.5 % Normal 0.2-2.0 [facility] Comment on above: Performed By: #### U RTPCR #### [facility] [address] [place] [address] Dr. Jose Mckinney EO # 0.5 103/ul Normal 0.0-0.7 [facility] Comment on above: Performed By: #### U RTPCR #### [facility] [address] [place] [address] Dr. Jose Mckinney Eosinophils/100 WBC (Bld) 8.0 % Critically high 0.9-7.0 [facility] Comment on above: Performed By: #### U RTPCR #### [facility] [address] [place] [address] Dr. Jose Mckinney Erythrocyte distribution width (RBC) [Ratio] 13.6 % Normal 11.0-15.0 [facility] Comment on above: Performed By: #### U RTPCR #### [facility] [address] [place] [address] Dr. Jose Mckinney Hematocrit (Bld) [Volume fraction] 42.5 % Normal 36.0-48.0 [facility] Comment on above: Performed By: #### U RTPCR #### [facility] [address] [place] [address] Dr. Jose Mckinney Hemoglobin (Bld) [Mass/Vol] 13.8 g/dL Normal 12.0-16.0 [facility] Comment on above: Performed By: #### U RTPCR #### [facility] [address] [place] [address] Dr. Jose Mckinney IG # 0.02 10e3/ul Normal 0.00-0.03 [facility] Comment on above: Performed By: #### U RTPCR #### [facility] [address] [place] [address] Dr. Jose Mckinney IG % 0.3 % Normal 0.0-0.5 [facility] Comment on above: Performed By: #### U RTPCR #### [facility] [address] [place] [address] Dr. Jose Mckinney LYMPH # 1.5 103/ul Normal 1.2-3.8 [facility] Comment on above: Performed By: #### U RTPCR #### [facility] [address] [place] [address] Dr. Jose Mckinney Lymphocytes/100 WBC (Bld) 25.3 % Normal 20.5-60.0 [facility] Comment on above: Performed By: #### U RTPCR #### [facility] [address] [place] [address] Dr. Jose Mckinney MANUAL DIFF REQ NO Normal [facility] Comment on above: Performed By: #### U RTPCR #### [facility] [address] [place] [address] Dr. Jose Mckinney MCH (RBC) [Entitic mass] 30.1 pg Normal 26.7-34.0 [facility] Comment on above: Performed By: #### U RTPCR #### [facility] [address] [place] [address] Dr. Jose Mckinney MCHC (RBC) [Mass/Vol] 32.5 g/dL Normal 29.9-35.2 [facility] Comment on above: Performed By: #### U RTPCR #### [facility] [address] [place] [address] Dr. Jose Mckinney MCV (RBC) [Entitic vol] 92.6 fL Normal 81.0-99.0 [facility] Comment on above: Performed By: #### U RTPCR #### [facility] [address] [place] [address] Dr. Jose Mckinney MONO # 0.4 103/ul Normal 0.3-0.8 [facility] Comment on above: Performed By: #### U RTPCR #### [facility] [address] [place] [address] Dr. Jose Mckinney Monocytes/100 WBC (Bld) 6.4 % Normal 1.7-12.0 [facility] Comment on above: Performed By: #### U RTPCR #### [facility] [address] [place] [address] Dr. Jose Mckinney NEUT # 3.6 103/ul Normal 1.4-6.5 [facility] Comment on above: Performed By: #### U RTPCR #### [facility] [address] [place] [address] Dr. Jose Mckinney Neutrophils/100 WBC (Bld) 59.5 % Normal 43.0-75.0 [facility] Comment on above: Performed By: #### U RTPCR #### [facility] [address] [place] [address] Dr. Jose Mckinney Platelet mean volume (Bld) [Entitic vol] 11.8 fL Normal 9.5-13.5 [facility] Comment on above: Performed By: #### U RTPCR #### [facility] [address] [place] [address] Dr. Jose Mckinney PLT 175 103/ul Normal 150-450 [facility] Comment on above: Performed By: #### U RTPCR #### [facility] [address] [address] [address] Jose Mckinney RBC 4.59 106/ul Normal 4.20-5.40 [facility] Comment on above: Performed By: #### U RTPCR #### [facility] [address] [address] [address] Jose Mckinney WBC 6.1 103/ul Normal 4.0-11.0 [facility] Comment on above: Performed By: #### U RTPCR #### [facility] [address] [address] [address] Jose Mckinney GLYCOHEMOGLOBIN A1Con 2021 ADA RECOMMENDATION SEE BELOW Normal [facility] Comment on above: Result Comment: ADA RECOMMENDED LIMIT 4.0 - 6.0 ADA THERAPEUTIC TARGET < 7.0 ACTION SUGGESTED > 7.0 Performed By: #### U RTPCR #### [facility] [address] [place] [address] Dr. Jose Mckinney Glucose [Mass/Vol] 209 mg/dL Normal [facility] Comment on above: Performed By: #### U RTPCR #### [facility] [address] [place] [address] Dr. Jose Mckinney HbA1c (Bld) [Mass fraction] 8.9 % Critically high 4.5-6.2 [facility] Comment on above: Performed By: #### U RTPCR #### [facility] [address] [place] [address] Dr. Jose Mckinney IRONon 02-06-2022 Iron [Mass/Vol] 55.0 ug/dL Normal 50.0-170.0 [facility] Comment on above: Performed By: #### C BC #### [facility] [address] [place] [address] Dr. Jose Mckinney LIPID PROFILEon 02-06-2022 CHOL-HDL RATIO NORM SEE BELOW Normal [facility] Comment on above: Result Comment: 3.3 - 4.4 LOW RISK 4.4 - 7.1 AVERAGE RISK 7.1 - 11.0 MODERATE RISK >11.0 HIGH RISK Performed By: #### T SH, CMP, LIPID #### [facility] [address] [address] [address] Jose Mckinney Cholesterol [Mass/Vol] 215 mg/dL Critically high <=200 [facility] Comment on above: Performed By: #### T SH, CMP, LIPID #### [facility] [address] [address] [address] Jose Mckinney Cholesterol in HDL [Mass/Vol] 32 mg/dL Critically low 40-60 [facility] Comment on above: Performed By: #### T MIGUEL ÁNGEL CMP, LIPID #### [facility] [address] [place] [address] Dr. Jose Mckinney Cholesterol in LDL [Mass/Vol] 118.4 mg/dL Normal [facility] Comment on above: Performed By: #### T MIGUEL ÁNGEL CMP, LIPID #### [facility] [address] [place] [address] Dr. Jose Mckinney Cholesterol.total/Choles terol in HDL [Mass ratio] 6.7 {ratio} Normal [facility] Comment on above: Performed By: #### T MIGUEL ÁNGEL CMP, LIPID #### [facility] [address] [place] [address] Dr. Jose Mckinney HDL NORMAL > or = 60 mg/dl - LOW CARDIOVASCULAR RISK <40 mg/dl - HIGH CARDIOVASCULAR RISK Normal [facility] Comment on above: Performed By: #### T SH, CMP, LIPID #### [facility] [address] [place] [address] Dr. Jose Mckinney LDL CALC NORMAL SEE BELOW Normal [facility] Comment on above: Result Comment: <100 mg/dl OPTIMAL 100 - 129 mg/dl NEAR OR ABOVE OPTIMAL 130 - 159 mg/dl BORDERLINE HIGH 160 - 189 mg/dl HIGH >190 mg/dl VERY HIGH Performed By: #### T SH, CMP, LIPID #### [facility] [address] [place] [address] Dr. Jose Mckinney Triglyceride [Mass/Vol] 323 mg/dL Critically high <=150 [facility] Comment on above: Performed By: #### T SH, CMP, LIPID #### [facility] [address] [address] [address] Jose Mckinney VLDL CALC 64.6 mg/dL Normal [facility] Comment on above: Performed By: #### T SH, CMP, LIPID #### [facility] [address] [place] [address] Dr. Jose Mckinney MAGNESIUMon 02-06-2022 Magnesium [Mass/Vol] 1.8 mg/dL Normal 1.8-2.4 [facility] Comment on above: Performed By: #### U RTPCR #### [facility] [address] [place] [address] Dr. Jose Mckinney PHOSPHORUSon 02-06-2022 Phosphate [Mass/Vol] 4.1 mg/dL Normal 2.6-4.7 [facility] Comment on above: Performed By: #### U RTPCR #### [facility] [address] [place] [address] Dr. Jose Mckinney PROF 14(COMP METB)on 022 Albumin [Mass/Vol] 3.6 g/dL Normal 3.4-5.0 [facility] Comment on above: Performed By: #### T SH, CMP, LIPID #### [facility] [address] [place] [address] Dr. Jose Mckinney Albumin/Globulin [Mass ratio] 0.9 {ratio} Normal [facility] Comment on above: Performed By: #### T SH, CMP, LIPID #### [facility] [address] [place] [address] Dr. Jose Mckinney ALP [Catalytic activity/Vol] 70 U/L Normal 46-116 [facility] Comment on above: Performed By: #### T SH, CMP, LIPID #### [facility] [address] [place] [address] Dr. Jose Mckinney ALT [Catalytic activity/Vol] 38 U/L Normal 14-59 [facility] Comment on above: Performed By: #### T SH, CMP, LIPID #### [facility] [address] [place] [address] Dr. Jose Mckinney Anion gap [Moles/Vol] 11.9 mmol/L Normal [facility] Comment on above: Performed By: #### T SH, CMP, LIPID #### [facility] [address] [address] [address] Jose Mckinney AST [Catalytic activity/Vol] 19 U/L Normal 15-37 [facility] Comment on above: Performed By: #### T SH, CMP, LIPID #### [facility] [address] [address] [address] Jose Mckinney Bilirubin [Mass/Vol] 0.3 mg/dL Normal 0.2-1.0 [facility] Comment on above: Performed By: #### T SH, CMP, LIPID #### [facility] [address] [place] [address] Dr. Jose Mckinney Calcium [Mass/Vol] 9.3 mg/dL Normal 8.5-10.1 [facility] Comment on above: Performed By: #### T MIGUEL ÁNGEL, CMP, LIPID #### [facility] [address] [address] [address] Jose Mckinney Chloride [Moles/Vol] 104 mmol/L Normal 98-107 [facility] Comment on above: Performed By: #### T MIGUEL ÁNGEL, CMP, LIPID #### [facility] [address] [place] [address] Dr. Jose Mckinney CO2 [Moles/Vol] 29.1 mmol/L Normal 21.0-32.0 [facility] Comment on above: Performed By: #### T SH, CMP, LIPID #### [facility] [address] [place] [address] Dr. Jose Mckinney Creatinine [Mass/Vol] 1.31 mg/dL Critically high 0.55-1.02 [facility] Comment on above: Performed By: #### T SH, CMP, LIPID #### [facility] [address] [address] [address] Jose Mckinney EGFR-AF BAHAMIAN 51 mL/min/1.73m2 Critically low >=60 [facility] Comment on above: Performed By: #### T SH, CMP, LIPID #### [facility] [address] [address] [address] Jose Mckinney EGFR-NON AF BAHAMIAN 42 mL/min/1.73m2 Critically low >=60 [facility] Comment on above: Performed By: #### T SH, CMP, LIPID #### [facility] [address] [address] [address] Jose Mckinney Globulin (S) [Mass/Vol] 3.9 g/dL Normal [facility] Comment on above: Performed By: #### T SH, CMP, LIPID #### [facility] [address] [address] [address] Jose Mckinney Glucose [Mass/Vol] 185 mg/dL Critically high 74-106 [facility] Comment on above: Performed By: #### T SH, CMP, LIPID #### [facility] [address] [address] [address] Jose Mckinney Potassium [Moles/Vol] 4.0 mmol/L Normal 3.5-5.1 [facility] Comment on above: Performed By: #### T SH, CMP, LIPID #### [facility] [address] [address] [address] Jose Mckinney Protein [Mass/Vol] 7.5 g/dL Normal 6.4-8.2 [facility] Comment on above: Performed By: #### T SH, CMP, LIPID #### [facility] [address] [address] [address] Jose Mckinney Sodium [Moles/Vol] 141 mmol/L Normal 136-145 [facility] Comment on above: Performed By: #### T SH, CMP, LIPID #### [facility] [address] [address] [address] Jose Mckinney Urea nitrogen [Mass/Vol] 20.0 mg/dL Critically high 7.0-18 .0 [facility] Comment on above: Performed By: #### T SH, CMP, LIPID #### [facility] [address] [address] [address] Jose Mckinney Urea nitrogen/Creatinine [Mass ratio] 15.3 mg/mg Normal [facility] Comment on above: Performed By: #### T SH, CMP, LIPID #### [facility] [address] [place] [address] Dr. Jose Mckinney TSHon 02-06-2022 TSH 2.011 uIU/mL Normal 0.358-3.740 [facility] Comment on above: Performed By: #### T SH, CMP, LIPID #### [facility] [address] [place] [address] Dr. Jose Mckinney UA RANDOM W/MICROSCOPICon BACTERIA NONE SEEN Normal NONE SEEN [facility] Comment on above: Performed By: #### U RTPCR #### [facility] [address] [place] [address] Dr. Jose Mckinney Bilirubin Ql (U) Negative Normal NEGATIVE [facility] Comment on above: Performed By: #### U RTPCR #### [facility] [address] [place] [address] Dr. Jose Mckinney CAST NONE SEEN Normal NONE SEEN [facility] Comment on above: Performed By: #### U RTPCR #### [facility] [address] [place] [address] Dr. Jose Mckinney Clarity (U) CLEAR Normal CLEAR [facility] Comment on above: Performed By: #### U RTPCR #### [facility] [address] [place] [address] Dr. Jose Mckinney Color (U) LT. YELLOW Normal YELLOW [facility] Comment on above: Performed By: #### U RTPCR #### [facility] [address] [place] [address] Dr. Jose Mckinney Crystals LM Nom (Urine sed) NONE SEEN Normal NONE SEEN [facility] Comment on above: Performed By: #### U RTPCR #### [facility] [address] [place] [address] Dr. Jose Mckinney Epithelial cells LM Ql (Urine sed) RARE Normal NONE SEEN /RARE [facility] Comment on above: Performed By: #### U RTPCR #### [facility] [address] [place] [address] Dr. Jose Mckinney Glucose Ql (U) Negative Normal NEGATIVE [facility] Comment on above: Performed By: #### U RTPCR #### [facility] [address] [place] [address] Dr. Jose Mckinney Hemoglobin Ql (U) Negative Normal NEGATIVE [facility] Comment on above: Performed By: #### U RTPCR #### [facility] [address] [place] [address] Dr. Jose Mckinney Ketones Ql (U) Negative Normal NEGATIVE [facility] Comment on above: Performed By: #### U RTPCR #### [facility] [address] [place] [address] Dr. Jose Mckinney LEUKOCYTES Negative Normal NEGATIVE [facility] Comment on above: Performed By: #### U RTPCR #### [facility] [address] [place] [address] Dr. Jose Mckinney MUCOUS NONE SEEN Normal NONE SEEN [facility] Comment on above: Performed By: #### U RTPCR #### [facility] [address] [place] [address] Dr. Jose Mckinney Nitrite Ql (U) Negative Normal NEGATIVE [facility] Comment on above: Performed By: #### U RTPCR #### [facility] [address] [place] [address] Dr. Jose Mckinney pH (U) 6.0 [pH] Normal 5-9 [facility] Comment on above: Performed By: #### U RTPCR #### [facility] [address] [place] [address] Dr. Jose Mckinney RBC 0-2 Normal 0-2 [facility] Comment on above: Performed By: #### U RTPCR #### [facility] [address] [place] [address] Dr. Jose Mckinney SPEC GRAVITY 1.010 Normal 1.005-<=1.02 5 [facility] Comment on above: Performed By: #### U RTPCR #### [facility] [address] [place] [address] Dr. Jose Mckinney UA PROTEIN Negative Normal NEGATIVE/ TRACE [facility] Comment on above: Performed By: #### U RTPCR #### [facility] [address] [place] [address] Dr. Jose Mckinney Urobilinogen Qn (U) 0.2 {Betsy'U}/dL Normal 0.2 - 1. 0 [facility] Comment on above: Performed By: #### U RTPCR #### [facility] [address] [place] [address] Dr. Jose Mckinney WBC 0-2 Abnormal NONE SEEN [facility] Comment on above: Performed By: #### U RTPCR #### [facility] [address] [place] [address] Dr. Jose Mckinney URIC ACID SERUMon 02-06-2022 Urate [Mass/Vol] 6.7 mg/dL Critically high 2.6-6.0 [facility] Comment on above: Performed By: #### U RTPCR #### [facility] [address] [place] [address] Dr. Jose Mckinney URINE T PROTEIN CREAT RATIOo n 02-06-2022 Protein (U) [Mass/Vol] 6.0 mg/dL Normal <=12.0 [facility] Comment on above: Performed By: #### I NSULIN #### [facility] [address] [place] [address] Dr. Jose Mckinney UR PROT CREAT RAT 0.[address] [facility] Comment on above: Performed By: #### I NSULIN #### [facility] [address] [place] [address] Dr. Jose Mckinney URINE CREAT 32.07 mg/dL Normal 20.00-300.00 [facility] Comment on above: Performed By: #### I NSULIN #### [facility] [address] [place] [address] Dr. Jose Mckinney BNPon 09-04-2021 Natriuretic peptide B (Bld) [Mass/Vol] 1096.0 pg/mL Critically high <=900.0 [facility] Comment on above: Performed By: #### U RTPCR #### [facility] [address] [address] [address] Jose Mckinney CBC AUTO DIFFon 09-04-2021 BASO # 0.0 103/ul Normal 0.0-0.1 [facility] Comment on above: Performed By: #### C BC #### [facility] [address] [place] [address] Dr. Jose Mckinney Basophils/100 WBC (Bld) 0.3 % Normal 0.2-2.0 [facility] Comment on above: Performed By: #### C BC #### [facility] [address] [place] [address] Dr. Jose Mckinney EO # 0.3 103/ul Normal 0.0-0.7 [facility] Comment on above: Performed By: #### C BC #### [facility] [address] [place] [address] Dr. Jose Mckinney Eosinophils/100 WBC (Bld) 2.1 % Normal 0.9-7.0 [facility] Comment on above: Performed By: #### C BC #### [facility] [address] [place] [address] Dr. Jose Mckinney Erythrocyte distribution width (RBC) [Ratio] 13.7 % Normal 11.0-15.0 [facility] Comment on above: Performed By: #### C BC #### [facility] [address] [place] [address] Dr. Jose Mckinney Hematocrit (Bld) [Volume fraction] 40.1 % Normal 36.0-48.0 [facility] Comment on above: Performed By: #### C BC #### [facility] [address] [place] [address] Dr. Jose Mckinney Hemoglobin (Bld) [Mass/Vol] 13.5 g/dL Normal 12.0-16.0 [facility] Comment on above: Performed By: #### C BC #### [facility] [address] [place] [address] Dr. Jose Mckinney IG # 0.48 10e3/ul Critically high 0.00-0.03 [facility] Comment on above: Performed By: #### C BC #### [facility] [address] [place] [address] Dr. Jose Mckinney IG % 3.7 % Critically high 0.0-0.5 [facility] Comment on above: Performed By: #### C BC #### [facility] [address] [place] [address] Dr. Jose Mckinney LYMPH # 4.2 103/ul Critically high 1.2-3.8 [facility] Comment on above: Performed By: #### C BC #### [facility] [address] [place] [address] Dr. Jose Mckinney Lymphocytes/100 WBC (Bld) 32.5 % Normal 20.5-60.0 [facility] Comment on above: Performed By: #### C BC #### [facility] [address] [place] [address] Dr. Jose Mckinney MANUAL DIFF REQ NO Normal [facility] Comment on above: Performed By: #### C BC #### [facility] [address] [place] [address] Dr. Jose Mckinney MCH (RBC) [Entitic mass] 30.7 pg Normal 26.7-34.0 [facility] Comment on above: Performed By: #### C BC #### [facility] [address] [place] [address] Dr. Jose Mckinney MCHC (RBC) [Mass/Vol] 33.7 g/dL Normal 29.9-35.2 [facility] Comment on above: Performed By: #### C BC #### [facility] [address] [place] [address] Dr. Jose Mckinney MCV (RBC) [Entitic vol] 91.1 fL Normal 81.0-99.0 [facility] Comment on above: Performed By: #### C BC #### [facility] [address] [place] [address] Dr. Jose Mckinney MONO # 0.9 103/ul Critically high 0.3-0.8 [facility] Comment on above: Performed By: #### C BC #### [facility] [address] [place] [address] Dr. Jose Mckinney Monocytes/100 WBC (Bld) 7.3 % Normal 1.7-12.0 [facility] Comment on above: Performed By: #### C BC #### [facility] [address] [place] [address] Dr. Jose Mckinney NEUT # 6.9 103/ul Critically high 1.4-6.5 [facility] Comment on above: Performed By: #### C BC #### [facility] [address] [place] [address] Dr. Jose Mckinney Neutrophils/100 WBC (Bld) 54.1 % Normal 43.0-75.0 [facility] Comment on above: Performed By: #### C BC #### [facility] [address] [place] [address] Dr. Jose Mckinney Platelet mean volume (Bld) [Entitic vol] 11.7 fL Normal 9.5-13.5 [facility] Comment on above: Performed By: #### C BC #### [facility] [address] [place] [address] Dr. Jose Mckinney PLT 216 103/ul Normal 150-450 [facility] Comment on above: Performed By: #### C BC #### [facility] [address] [place] [address] Dr. Jose Mckinney RBC 4.40 106/ul Normal 4.20-5.40 [facility] Comment on above: Performed By: #### C BC #### [facility] [address] [place] [address] Dr. Jose Mckinney WBC 12.8 103/ul Critically high 4.0-11.0 [facility] Comment on above: Performed By: #### C BC #### [facility] [address] [place] [address] Dr. Jose Mckinney [facility]on SARS-CoV-2 (COVID-19) RNA HCILO+probe Ql (Unsp spec) Not detected Normal NOT DETECTED [facility] Comment on above: Result Comment: This test is not yet approved or cleared by the [place] FDA. When there are no FDA-approved or cleared tests available, and other criteria are met, FDA can make tests available under an emergency access mechanism called an Emergency Use Authorization (EUA). The EUA for this test is supported by the Fish Hatchery Inspector of Health and Human Service's (HHS's) declaration [...] SARS-CoV-2. Performed By: #### I NSULIN #### [facility] [address] [place] [address] Dr. Jose Mckinney D-DIMERon 09-04-2021 D-DIMER 0.33 mg/L FEU Normal 0.19-0.50 [facility] Comment on above: Performed By: #### I NSULIN #### [facility] [address] [place] [address] Dr. Jose Mckinney D-DIMER COMMENTS SEE BELOW Normal [facility] Comment on above: Result Comment: Incr [...] hospitalization. Performed By: #### I NSULIN #### [facility] [address] [place] [address] Dr. Jose Mckinney PROF 14(COMP METB)on 022 Albumin [Mass/Vol] 3.4 g/dL Normal 3.4-5.0 [facility] Comment on above: Performed By: #### U RTPCR #### [facility] [address] [address] [address] Jose Mckinney Albumin/Globulin [Mass ratio] 1.0 {ratio} Normal [facility] Comment on above: Performed By: #### U RTPCR #### [facility] [address] [address] [address] Jose Mckinney ALP [Catalytic activity/Vol] 92 U/L Normal 46-116 [facility] Comment on above: Performed By: #### U RTPCR #### [facility] [address] [address] [address] Jose Mckinney ALT [Catalytic activity/Vol] 113 U/L Critically high 14-59 [facility] Comment on above: Performed By: #### U RTPCR #### [facility] [address] [place] [address] Dr. Jose Mckinney Anion gap [Moles/Vol] 14.0 mmol/L Normal [facility] Comment on above: Performed By: #### U RTPCR #### [facility] [address] [place] [address] Dr. Jose Mckinney AST [Catalytic activity/Vol] 50 U/L Critically high 15-37 [facility] Comment on above: Performed By: #### U RTPCR #### [facility] [address] [address] [address] Jose Mckinney Bilirubin [Mass/Vol] 0.4 mg/dL Normal 0.2-1.3 [facility] Comment on above: Performed By: #### U RTPCR #### [facility] [address] [address] [address] Jose Mckinney Calcium [Mass/Vol] 9.0 mg/dL Normal 8.5-10.1 [facility] Comment on above: Performed By: #### U RTPCR #### [facility] [address] [address] [address] Jose Mckinney Chloride [Moles/Vol] 100 mmol/L Normal 98-107 [facility] Comment on above: Performed By: #### U RTPCR #### [facility] [address] [address] [address] Jose Mckinney CO2 [Moles/Vol] 25.4 mmol/L Normal 22.0-30.0 [facility] Comment on above: Performed By: #### U RTPCR #### [facility] [address] [address] [address] Jose Mckinney Creatinine [Mass/Vol] 1.61 mg/dL Critically high 0.52-1.04 [facility] Comment on above: Performed By: #### U RTPCR #### [facility] [address] [address] [address] Jose Mckinney EGFR-AF BAHAMIAN 41 mL/min/1.73m2 Critically low >=60 [facility] Comment on above: Performed By: #### U RTPCR #### [facility] [address] [place] [address] Dr. Jose Mckinney EGFR-NON AF BAHAMIAN 33 mL/min/1.73m2 Critically low >=60 [facility] Comment on above: Performed By: #### U RTPCR #### [facility] [address] [address] [address] Jose Mckinney Globulin (S) [Mass/Vol] 3.4 g/dL Normal [facility] Comment on above: Performed By: #### U RTPCR #### [facility] [address] [address] [address] Jose Mckinney Glucose [Mass/Vol] 57 mg/dL Critically low 74-106 [facility] Comment on above: Performed By: #### U RTPCR #### [facility] [address] [address] [address] Jose Mckinney Potassium [Moles/Vol] 3.4 mmol/L Normal 3.4-5.0 [facility] Comment on above: Performed By: #### U RTPCR #### [facility] [address] [address] [address] Jose Mckinney Protein [Mass/Vol] 6.8 g/dL Normal 6.1-8.2 [facility] Comment on above: Performed By: #### U RTPCR #### [facility] [address] [address] [address] Jose Mckinney Sodium [Moles/Vol] 136 mmol/L Critically low 137-145 [facility] Comment on above: Performed By: #### U RTPCR #### [facility] [address] [address] [address] Jose Mckinney Urea nitrogen [Mass/Vol] 51.0 mg/dL Critically high 7.0-18 .0 [facility] Comment on above: Performed By: #### U RTPCR #### [facility] [address] [address] [address] Jose Mckinney Urea nitrogen/Creatinine [Mass ratio] 31.7 mg/mg Normal [facility] Comment on above: Performed By: #### U RTPCR #### [facility] [address] [place] [address] Dr. Jose Mckinney TROPONIN, HIGH SENSITIVITYon 09-04-2021 HSTROP 16.1 pg/mL Normal 4.0-35.5 [facility] Comment on above: Result Comment: CUT- OFF POINTS HAVE BEEN ESTABLISHED BASED ON THE FOURTH UNIVERSAL DEFINITIONS OF MYOCARDIAL INFARCTION. THE UPPER REFERENCE LIMIT (URL) OF TROPONIN, DEFINED THE 99TH PERCENTILE OF cTnI DISTRIBUTION IN A REFERENCE POPULATION, HAS BEEN CONFIRMED THE DECISION THRESHOLD FOR NM DIAGNOSIS. Performed By: #### U RTPCR #### [facility] [address] [place] [address] Dr. Jose Mckinney XR CHEST 1 Von [...] AFIA KOHLI Date: 2021-09-04 20:53 Normal [facility] XR CHEST 2 Von 08-29-2021 XR CHEST [...] by: AFIA HALL Date: 2021-08-29 14:43 Normal [facility] Cardiovascular Lab Reporton 11-10-2020 Cardiovascular Lab Report [facility] Patient Name: [facility] Mary Jane MR #: [id number] Department of Physician: Huy Howell M.D. Division of Service Date: 11/09/2020 Cardiology Birthdate: 1970 Adult Cardiovascular Room #: [address] [address] Cardiovascular Laboratory Report FINAL IMPRESSION: 1. Mild [...] as scheduled. 5. Follow up with [facility] Cardiology on an as-needed basis. PROCEDURES: [...] the left radial artery was obtained. A 6-Spanish glide sheath was inserted without difficulty. Bilateral [...] Valadez M.D. Date Trans: 11/10/2020 07:37 A/josefa [id number] cc: Sea Chatterjee M.D. [address] [place] [address] Normal [facility] Vital Signs Date Time Vital Sign Value Performing Clinician Facility 10-09-2023 15:26-0400 Body height 160.02 cm CAROLYN Arias Phone: [facility] 10-09-2023 15:26-0400 Body mass index (BMI) [Ratio] 45.8 kg/m2 ENVIRONMENTAL LEAD-C Annlance Velamer Work Phone: [facility] 10-09-2023 15:26-0400 Body temperature 95.9 [degF] ENVIRONMENTAL LEAD-C Annlance Velamer Work Phone: [facility] 10-09-2023 15:26-0400 Body weight 117.25 kg ENVIRONMENTAL LEAD-C Annlance Velamer Work Phone: [facility] 10-09-2023 15:26-0400 Diastolic blood pressure 62 mm[Hg] ENVIRONMENTAL LEAD-C Annlance Velamer Work Phone: [facility] 10-09-2023 15:26-0400 Heart rate 75 /min ENVIRONMENTAL LEAD-C Annlance Velamer Work Phone: [facility] 10-09-2023 15:26-0400 Respiratory rate 18 /min ENVIRONMENTAL LEAD-C Annlance Velamer Work Phone: [facility] 10-09-2023 15:26-0400 SaO2% (BldA) [Mass fraction] 96 % ENVIRONMENTAL LEAD-C Ann Velamer Work Phone: [facility] 10-09-2023 15:26-0400 Systolic blood pressure 110 mm[Hg] ENVIRONMENTAL LEAD-C Ann Velamer Work Phone: [facility] 08-14-2023 10:23-040 Body height 160 cm Reneekristel Gruber GAMEROOM TECHNICIAN-FINANCIAL PROCESSING CLERK Work Phone: [facility] 08-14-2023 10:23-0400 Body mass index (BMI) [Ratio] 49.03 kg/m2 Reneekristel Gruber GAMEROOM TECHNICIAN-FINANCIAL PROCESSING CLERK Work Phone: [facility] 08-14-2023 10:23-0400 Body weight 125.56 kg Reneekristel Gruber GAMEROOM TECHNICIAN-FINANCIAL PROCESSING CLERK Work Phone: [facility] 08-14-2023 10:23-0400 Diastolic blood pressure 76 mm[Hg] Renee Gruber APRN-FINANCIAL PROCESSING CLERK [facility] 08-14-2023 10:23-0400 Heart rate 110 /min Renee Gruber APRN-FINANCIAL PROCESSING CLERK Work Phone[facility] 08-14-2023 10:23-0400 Systolic blood pressure 144 mm[Hg] Renee Gruber APRN-FINANCIAL PROCESSING CLERK Work Phone[facility] 04-30-2023 11:00-0500 Body height 160.02 cm Anila Jasmine Other [facility] Other 04-30-2023 11:00-0500 Body mass index (BMI) [Ratio] 51.54 kg/m2 Anila Jasmine Other [facility] Other 04-30-2023 11:00-0500 Body temperature 96.4 [degF] Anila Jasmine Other [facility] Other 04-30-2023 11:00-0500 Body weight 132 kg Anila Jasmine Other [facility] Other 04-30-2023 11:00-0500 Diastolic blood pressure 84 mm[Hg] Anila Jasmine Other [facility] Other 04-30-2023 11:00-0500 Respiratory rate 18 /min Anila Jasmine Other [facility] Other 04-30-2023 11:00-0500 SaO2% (BldA) [Mass fraction] 96 % Anila Jasmine Other [facility] Other 04-30-2023 11:00-0500 Systolic blood pressure 133 mm[Hg] Anila Jamsine Other [facility] Other 11-11-2022 14:45-0400 Body height 160.02 cm Misha Christian Other [facility] Other 11-11-2022 14:45-0400 Body mass index (BMI) [Ratio] 49.24 kg/m2 Misha Anahi Other [facility] Other 11-11-2022 14:45-0400 Body weight 126.1 kg Misha Christian Other [facility] Other 10-07-2022 14:30-0400 Body height 160.02 cm Misha Christian Other [facility] Other 10-07-2022 14:30-0400 Body mass index (BMI) [Ratio] 50.41 kg/m2 Misha Anahi Other [facility] Other 10-07-2022 14:30-0400 Body weight 129.09 kg Misha Christian Other [facility] Other 08-15-2022 15:20-0400 Body height 160.02 cm Anila Jasmine Other [facility] Other 08-15-2022 15:20-0400 Body mass index (BMI) [Ratio] 48.35 kg/m2 Anila Jasmine Other [facility] Other 08-15-2022 15:20-0400 Body temperature 97.4 [degF] Anila Jasmine Other [facility] Other 08-15-2022 15:20-0400 Body weight 123.83 kg Anila Jasmine Other [facility] Other 08-15-2022 15:20-0400 Diastolic blood pressure 70 mm[Hg] Anila Jasmine Other [facility] Other 08-15-2022 15:20-0400 Respiratory rate 18 /min Anila Jasmine Other [facility] Other 08-15-2022 15:20-0400 SaO2% (BldA) [Mass fraction] 99 % Anila Jasmine Other [facility] Other 08-15-2022 15:20-0400 Systolic blood pressure 132 mm[Hg] Anila Jasmine Other [facility] Other 02-11-2022 15:40-0400 Body height 160.02 cm Anila Jasmine Other [facility] Other 02-11-2022 15:40-0400 Body mass index (BMI) [Ratio] 50.37 kg/m2 Anila Jasmine Other [facility] Other 02-11-2022 15:40-0400 Body temperature 96.6 [degF] Anila Jasmine Other [facility] Other 02-11-2022 15:40-0400 Body weight 129 kg Anila Jasmine Other [facility] Other 02-11-2022 15:40-0400 Diastolic blood pressure 54 mm[Hg] Anila Jasmine Other [facility] Other 02-11-2022 15:40-0400 Respiratory rate 18 /min Anila Jasmine Other [facility] Other 02-11-2022 15:40-0400 SaO2% (BldA) [Mass fraction] 96 % Anila Jasmine Other [facility] Other 02-11-2022 15:40-0400 Systolic blood pressure 131 mm[Hg] Anila Jasmine Other [facility] Other 10-22-2021 15:30-0400 Body height 160.02 cm Arthur Olexa Other [facility] Other 10-22-2021 15:30-0400 Body mass index (BMI) [Ratio] 49.95 kg/m2 Arthur Olexa Other [facility] Other 10-22-2021 15:30-0400 Body weight 127.92 kg Arthur Olexa Other [facility] Other 08-02-2021 15:40-0500 Body height 160.02 cm Anila Jasmine Other [facility] Other 08-02-2021 15:40-0500 Body mass index (BMI) [Ratio] 50.66 kg/m2 Anila Jasmine Other [facility] Other 08-02-2021 15:40-0500 Body weight 129.73 kg Anila Jasmine Other [facility] Other 08-02-2021 15:40-0500 Diastolic blood pressure 80 mm[Hg] Anila Jasmine Other [facility] Other 08-02-2021 15:40-0500 Respiratory rate 18 /min Anila Jasmine Other [facility] Other 08-02-2021 15:40-0500 SaO2% (BldA) [Mass fraction] 96 % Anila Jasmine Other [facility] Other 08-02-2021 15:40-0500 Systolic blood pressure 132 mm[Hg] Anila Jasmine Other [facility] Other Encounters Encounter Date Encounter Type Care Provider Facility Start: 11-13-2023 End: 11-13-2023 ambulatory ENEDINA ROMERO Not Available Start: 11-10-2023 End: 11-10-2023 ambulatory IRMA NGUYEN Not Available Start: 11-03-2023 End: 11-03-2023 ambulatory EHAB [facility] Start: 10-09-2023 End: 10-09-2023 ambulatory ENVIRONMENTAL LEAD-C Ann Fournier Work Phone: [facility] Work Phone: Start: 10-09-2023 End: 10-09-2023 Patient encounter procedure ENVIRONMENTAL LEAD-C Ann Fournier Work Phone: [facility] Work Phone: Start: 10-08-2023 Non-patient / Non-visit ENVIRONMENTAL LEAD-C Margaux Fournier Work Phone: [facility] Work Phone: Start: 09-04-2023 End: 09-04-2023 Orders Only Jeni Bonilla RMA [facility] Comment on above: Dysphagia, unspecifi ed type Start: 09-03-2023 End: 09-03-2023 Orders Only Not In System Ref Prov [facility] Start: 09-03-2023 End: 09-03-2023 Departed Referred ENVIRONMENTAL LEAD-C Ann Shantanu Work Phone: [facility] Start: 08-29-2023 ambulatory ANN S SHANTANU [facility] Start: 08-14-2023 End: 08-15-2023 Emergency department patient visit SHYANN JOENS [facility] Start: 08-14-2023 End: 08-14-2023 ambulatory RENEE GRUBER [facility] Start: 08-14-2023 End: 08-14-2023 Office outpatient new 30 minutes Renee Gruber GAMEROOM TECHNICIAN-FINANCIAL PROCESSING CLERK Work Phone: [facility] Comment on above: Dysphagia, unspecifi ed type (Primary Dx); Personal history of ovarian cancer; Morbid obesity with BMI of 45.0-49.9, adult ([facility]) Start: 06-26-2023 End: 06-26-2023 ambulatory ENEDINA ROMERO Not Available Start: 04-30-2023 Office outpatient vi sit 15 minutes Anila Granados [facility] Start: 04-30-2023 End: 04-30-2023 ambulatory ENVIRONMENTAL LEAD-C Nan Tash Shantanu Work Phone: [facility] Other Start: 04-30-2023 End: 04-30-2023 Patient encounter procedure ENVIRONMENTAL LEAD-C Ann Shantanu Work Phone: [facility] [place] Work Phone: Start: 04-17-2023 End: 04-17-2023 ambulatory ENEDINA ROMERO Not Available Start: 11-11-2022 (Proc F/U) Procedure F/U Misha Christian [facility] Start: 11-11-2022 End: 11-11-2022 ambulatory Misha Christian Other [facility] Other Start: 10-24-2022 End: 10-24-2022 ambulatory Arthur Moy Other [facility] Other Start: 10-24-2022 Telephone encounter Arthur Moy [facility] Start: 10-07-2022 End: 10-07-2022 ambulatory Misha Christian Other [facility] Other Start: 10-07-2022 Office outpatient vi sit 15 minutes Misha Christian [facility] Start: 09-23-2022 End: 09-23-2022 ambulatory Arthur Moy Facility:[facility] Start: 09-23-2022 End: 09-23-2022 ambulatory MD Arthur Moy Work Phone: [facility] Work Phone: Start: 09-23-2022 End: 09-23-2022 Patient encounter procedure MD Arthur Moy Work Phone: [facility] Start: 08-19-2022 End: 08-19-2022 Patient encounter procedure MD Arthur Moy Work Phone: [facility] Start: 08-19-2022 End: 08-19-2022 ambulatory MD Arthur Moy Work Phone: [facility] Work Phone: Start: 08-19-2022 Office outpatient ne w 30 minutes Arthur Moy [facility] Start: 08-15-2022 End: 08-15-2022 ambulatory Anila Jasmine Other [facility] Other Start: 08-15-2022 Office outpatient vi sit 25 minutes Anila Jasmine [facility] Start: 08-13-2022 End: 08-14-2022 ambulatory ANILA JASMINE Facility:[facility] Start: 07-08-2022 End: 07-09-2022 ambulatory Afia Hall Facility:[facility] Start: 05-13-2022 End: 05-13-2022 ambulatory ANN FOURNIER Facility:[facility] Start: 02-11-2022 End: 02-11-2022 ambulatory Anila Jasmine Other [facility] Other Start: 02-11-2022 Office outpatient vi sit 25 minutes Anila Jasmine [facility] Start: 02-06-2022 End: 02-07-2022 ambulatory ANN FOURNIER Facility:[facility] Start: 10-22-2021 End: 10-22-2021 ambulatory Arthur Moy Other [facility] Other Start: 10-22-2021 Office outpatient ne w 30 minutes Arthur Moy [facility] Start: 09-07-2021 End: 09-07-2021 ambulatory ANN FOURNIER Facility:[facility] Start: 09-04-2021 End: 09-05-[address] AZEEM FITZGERALD Facility:[facility] Start: 08-29-2021 End: 08-30-2021 ambulatory DENYS Omer Facility:[facility] Start: 08-02-2021 End: 08-02-2021 ambulatory Anila Jasmine Other [facility] Other Start: 08-02-2021 Office outpatient vi sit 15 minutes Anila Jasmine [facility] Start: 11-09-2020 End: 11-10-2020 ambulatory SEA CHATTERJEE Facility:[facility] Start: 10-31-2020 End: 11-01-2020 ambulatory SEA CHATTERJEE Facility:[facility] Start: 11-06-2017 Ambulatory ANTONIO BRIAN Facility :[id number] Start: 11-06-2017 Ambulatory Facility:[id number] Procedures Date Procedure Procedure Detail Performing Clinician Start: 09-03-2023 Esophagogastroduodenoscopy Renee burden GAMEROOM TECHNICIAN-FINANCIAL PROCESSING CLERK Work Phone: Start: 09-03-2023 POCT REHAB GLUCOSE Not In System Ref Prov Start: 09-23-2022 X-ray of left knee MD Arthur Moy Work Phone: Start: 08-19-2022 Plain X-ray of right shoulder MD Arthur Moy Work Phone: Start: 08-19-2022 X-ray of cervical spine MD Arthur Moy Work Phone: Replacement of total knee joint Anila Granados Other Plan of Treatment Date Care Activity Detail Author Start: 08-13-2024 Adult [facility]ening [facility] Start: 08-13-2024 Tobacco Screening [facility] Start: 02-01-2024 Influenza vaccination Influenza Vaccine [facility] Start: 08-14-2023 End: 08-13-2024 RF Esophagus Views W contrast PO Fluoroscopy esophagus Imaging Routine Dysphagia, unspecified type Expected: 08/14/2023, Expires: 08/13/2024 [employer] Work Phone: Comment on above: Expected: 08/14/2023, Expires: Start: 01-31-2023 Influenza vaccination Influenza Vaccine [facility] Start: 1989 Screening for malignant neoplasm of cervix Pap [facility] [employer] Start: 1987 DTaP,Tdap and Td Vaccines (1 - Tdap) DTaP,Tdap and Td Vaccines (1 - Tdap) [facility] Start: 1986 Adult BMI Follow Up Plan Adult BMI Follow Up Plan [facility] Start: 1980 Depression Screening [facility]ening [facility] End: 08-13-2024 Esophagogastroduodenoscopy EGD GI Routine Dysphagia, unspecified type 1 Occurrences starting 08/14/2023 until 08/13/2024 [facility] [employer] Comment on above: 1 Occurrences starting 08/14/2023 until 08/13/2024 Renal function 2000 panel - Serum or Plasma [facility] Payers Date Payer Category Payer Medicare ANTHEM MEDICARE ANTHEM MEDICARE ADVANTAGE [id number] 2023-Present [phone] [address] [place] [address] [id number] 2022 Self-pay [id number] 2017 Medicaid [facility] [id number] 2017-Present [phone] [address] [place] [address] [id number] 2008 Unknown [id number] 1970 Unknown [id number] 2.16.840.1.507663.3.579.2.647 1968 Unknown [id number] 2.16.840.1.372890.3.579.2.647 1968 Unknown [id number] 2.16.840.1.643441.3.579.2.593 1968 Unknown [id number] 2.16.840.1.162222.3.579.2.593 1968 Unknown [id number] 2.16.840.1.260774.3.579.2.593 1968 Unknown [id number] 2.16.840.1.660897.3.579.2.593 1968 Unknown [id number] 2.16.840.1.050169.3.579.2.593 1968 Unknown [id number] 2.16.840.1.254674.3.579.2.593 1968 Unknown [id number] 2.16.840.1.648638.3.579.2.593 1968 Unknown [id number] 2.16.840.1.112131.3.579.2.593 1968 Unknown [id number] 2.16.840.1.776648.3.579.2.1286 1968 Unknown [id number] 2.16.840.1.135215.3.579.2.1286 1968 Unknown [id number] 2.16.840.1.372811.3.579.2.1286 1968 Unknown [id number] 2.16.840.1.875128.3.579.2.1286 1968 Unknown [id number] 2.16.840.1.202383.3.579.2.1286 1968 Unknown [id number] 2.16.840.1.582910.3.579.2.1259 1968 Unknown [id number] 2.16.840.1.262336.3.579.2.9 1968 Unknown [id number] 2.16.840.1.266662.3.579.2.1259 1968 Unknown [id number] 2.16.840.1.499432.3.579.2.9 1968 Unknown [id number] 2.16.840.1.400876.3.579.2.1259 1961 Medicaid [id number] 1959 Unknown [id number] Unknown [id number] 2.16.840.1.839015.3.579.2.531 Unknown [id number] 2.16.840.1.175682.3.579.2.531 Social History Date Type Detail Facility Unknown if ever smoked [facility] Other Start: 07-13-2020 End: 08-14-2023 Sex Assigned At [facility] Start: 1970 Sex Assigned At Female F [facility] Start: 08-14-2023 End: 10-09-2023 Tobacco smoking status NHIS Never smoked tobacco [facility] Start: 08-14-2023 Tobacco use and exposure Smokeless tobacco non-user [facility] Start: 08-14-2023 Alcohol intake Ex-drinker (finding) [facility] Start: 07-13-2020 End: 08-14-2023 History of Social function [facility] Childcare Unknown [facility] Start: 1970 Sex Assigned At Not on file P [facility] Medical Equipment Procedure Code Equipment Code Equipment Origin al Text Equipment Identifier Dates Start: 11-05-2016 Clinical Notes 03-03-2022 to 11-03-2023 Renee Gruber, GAMEROOM TECHNICIAN-FINANCIAL PROCESSING CLERK - 08/14/2023 10:00 AM EDT Note Date & Type Note Facility 11-03-2023 Note [facility] Card[facility] Clinic Note Chief Complaint: Patient here to re-establish care. She had a recent episode of possible syncope w/ hypotension at home. She was bent over putting cases of pop away, and when she stood back up she lost her balance. Denies lightheadedness/dizziness. She doesn't remember the few seconds between the sink to the floor . EMS came and she was told her BP was 90/63. She does have intermittent vertigo. Has intermittent chest pain and palpitations. She has tried simvastatin and atorvastatin in the past and was unable to tolerate them due to myalgias. HPI: Mary Jane Schaeffer is a 53 y.o. female woman with morbid obesity and a multiple number of comorbid conditions; she is here for preop evaluation In 2020: She denies exertional symptoms apart from shortness of breath which she always has . She has asthma and uses inhalers multiple times a day. She denies chest pain. She is able to walk in the grocery store albeit at a low pace and leaning on the cart. Sometimes she has to use an electric wheelchair. She sleeps semireclined due to history of reflux, no paroxysmal external dyspnea. She has mild obstructive sleep apnea and does not wear a CPAP mask. She has chronic lower extremity edema and skin changes. Past medical history: Hypertension, fibromyalgia, PSVT, chronic kidney disease, obstructive sleep apnea, body mass index 50 and over, morbid obesity, asthma, hypertension, diabetes mellitus, hypothyroidism Allergies: Avelox, sulfa, penicillin, statin, Bactrim, Cipro, cephalosporins, aspirin, Percocet, adhesive tape, pollen, eggs, mold results UPDATE 11/03/2023 Patient had an episode of positional syncope; she was leaning forward to pick something up. She subsequently blacked out. She has exertional chest discomfort when she has SVT . This happens a few times a month. She performs a Valsalva maneuver and this sometimes helps. She has not had cardiac testing in several years. She has been diagnosed with SVT many years ago; there was discussion regarding ablation. She did not want to proceed at that time. Cardiology ROS: Review of Systems Cardiovascular: Positive for chest pain, dyspnea on exertion, irregular heartbeat and palpitations. Musculoskeletal: Positive for arthritis, back pain, joint pain, muscle weakness and myalgias. Neurological: Positive for headaches, loss of balance, vertigo and weakness. All other systems reviewed and are negative. Past Medical History She has no past medical history on file. Surgical History She has no past surgical history on file. Social History She has no history on file for tobacco use, alcohol use, and drug use. Family History No family history on file. Allergies Patient has no allergy information on record. Medications No current outpatient medications on file. Last Recorded Vitals BP 162/75 (BP Location: Left wrist, Patient Position: Sitting) Pulse 89 Ht 1.6 m (5' 3 ) Wt 127 kg (281 lb) SpO2 97% BMI 49.78 kg/m??? Physical Examination: GENERAL: alert and oriented x3, well developed, in no acute distress. HEAD: atraumatic, normocephalic. EYES: RUTH, EOMI. NECK: trachea midline, no JVD present, no carotid bruits present. CARDIAC: S1, S2 present. RRR. No murmur, rubs, or gallops. RESPIRATORY: CTAB, no increased effort of breathing, no rales, rhonchi, or wheezing. ABDOMEN: soft, nontender, nondistended. EXTREMITIES: no lower extremity edema, peripheral pulses are 2+ bilaterally. No rash/skin discoloration present. NEURO: strength/sensation equal and symmetric in bilateral upper and lower extremities. PSYCH: appropriate mood, affect, and judgement. Investigations: Exercise stress test; Abnormal EKG portion Nuclear portion: No acute or reversible ischemia Mild hypokinesis of the septal wall Transient ischemic dilation is at upper normal limits 1.2 Ejection fraction is 55% Cardiac catheterization 11/09/2020: Final impression: 1. Mild coronary artery disease 2. Normal global left ventricular systolic function by noninvasive imaging 3. Moderate systemic hypertension Recommendations: 1. The patient may proceed to upcoming surgery at acceptable risk 2. Aggressive cardiovascular SPECT modification 3. Aspirin, moderate to high intensity statin therapy, plus or minus a beta-ayala and an angiotensin-converting enzyme inhibitor 4. Follow-up with Dr. Andrew already scheduled 5. Follow-up with [facility] cardiology on an as-needed basis MARY JANE SCHAEFFER Age/Sex/Date of : 53, F - 1970 Created on: 10/31/2023 16:24 EDT TSH Collected Result Units Reference 06/17/23 15:06 3.330 uIU/mL 0.358-3.740 Thyroxine (T4) Collected Result Units Reference 06/17/23 15:06 11.20 ug/dL 4.80-13.90 Free T3 Collected Result Units Reference 06/17/23 15:06 2.05 L pg/mL 2.18-3.98 Assessment: Syncope - Chest pain Paroxysmal supraventri (more content not included)... [facility] 08-14-2023 History of Present illness Narrative Images from the original note were not included. Chief Complaint: Dysphagia History of Present Illness Mary Jane Schaeffer is a 53 y.o. female who presents to the office for dysphagia. Symptoms started in 2020 but are quickly getting worse. She has [...] Date Anemia Asthma Diabetes type 2, controlled ([facility]) GI problem Herniation of right side of L4-L5 intervertebral disc High cholesterol Hypertension Hypothyroidism Nerve damage in feet and legs Osteoarthritis Ovarian cancer ([facility]) Past Surgical History: Procedure Laterality Date APPENDECTOMY [...] tablet,chewable, Chew and swallow., Disp: , Rfl: [id number] 283-06-20-50 mg capsule, Take by mouth., Disp: , [...] results found for: INR , PROTIME Assessment Mary Jane Schaeffer is a 53 y.o.female with dysphagia. Plan Esophagram. EGD with possible biopsy. Risks, benefits, and alternatives discussed with patient. Patient verbalizes understanding and wishes to proceed. Evaluation included: Preparing to see the patient (e.g., review of tests) Obtaining and/or reviewing separately obtained history Performing a medically appropriate examination and/or evaluation Counseling and educating the patient/family/caregiver Referring and communicating with other health care transition coordinator Dysphagia, unspecified type [R13.10] SHAYLA RUBIO [facility] General Surgery [place] This note was created with the assistance of a speech recognition program. While intending to generate a timely document that accurately reflects the content of the visit, no guarantee can be provided that every grammatical or spelling mistake has been or will be identified or corrected. Thank you for your understanding. SHAYLA Rubio 08/14/23 1058 documented in this encounter [facility] 04-30-2023 Evaluation note Encounter Date Diagnosis Assessment [...] and vitamin D are within the goal. [facility] Other 05-08-2023 Evaluation note* Encounter Date Diagnosis Assessment Notes Treatment Notes Treatment Clinical Notes September, Arthritis of left knee (ICD-10 - M17.12) Mary Jane presents with left knee DJD. H/o R [...] as documented in the electronic medical record. [facility] Other 03-20-2023 Evaluation note* Encounter Date Diagnosis [...] 2 diabetes mellitus without complication, unspecified whether skilled nursing insulin use (ICD-10 - E11.9) Jul, Cervical spine pain (ICD-10 - M54.2) [facility] Other 03-16-2023 Evaluation note* Encounter Date Diagnosis [...] the PCP office to see if the family independence case manager can help her with the subsidized [...] and vitamin D are within the goal. [facility] Other 02-07-2023 NotePROCEDURE: XR HIP LT 2 [...] Electronically authenticated by: AFIA HALL Date: 2022-07-09 07:42[facility]09-12-2022 Evaluation note* Encounter Date Diagnosis Assessment Notes [...] the PCP office to see if the family independence case manager can help her with the subsidized [...] currently does not take PAULETTE or ARB. [facility] Other 05-23-2022 Evaluation note* Encounter Date Diagnosis [...] MRI to assess for rotator cuff tear. [facility] Other 03-03-2022 Evaluation note* Encounter Date Diagnosis [...] currently does not take PAULETTE or ARB. [facility] Other Evaluation noteNo assessment information available [facility] Work Phone: Evaluation noteNo InformationNort [email or web address] Other Evaluation [email or web address] [email or web address] Other Evaluation note* Diagnosis Dysphagia, unspecified type- Primary Personal history of ovarian cancer Personal history of malignant neoplasm of ovary Morbid obesity with BMI of 45.0-49.9, adult ([facility]) [facility] Diagnosis Dysphagia, unspecified type [facility] Diagnosis Onset Date Resolution Status CKD (chronic kidney disease) stage 3, GFR 30-59 ml/min acute [id number] acute Hyperuricemia acute Hypoparathyroidism acute 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 disease acute Vitamin D deficiency acute [facility] Work Phone: History general Narrative - Reported* Type Description Date [...] Procedure:ativan, zo dayron, tylenol;Disease:right upper quad pain 2012 Surgical History bone spur 2012 Surgical History back surgery 2012 Surgical History herniated disk repair 2012 Surgical History right total knee (07/28/12) Surgical History injections to back Dr Lundberg 09/30 6 Surgical History carpel tunnel right 09/16 Surgical History Heart Cath 11/09/2020 Surgical History HYSTERECTOMY/ PNEUMONIA Hospitalization History SEE ABOVE SURGERY Hospitalization History [facility] 02/2020 [facility] Other History general Narrative - Reported* Type Description Date [...] bone spur 2011 Surgical History back surgery 2012 Surgical History herniated disk repair 2012 Surgical History right total knee (07/28/12) Surgical History injections to back Dr Lundberg 09/30 6 Surgical History carpel tunnel right 09/16 Surgical History Heart Cath 11/09/2020 Surgical History HYSTERECTOMY/ PNEUMONIA Hospitalization History SEE ABOVE SURGERY Hospitalization History [facility] 02/2020 [facility] Other History general Narrative - ReportedNortFlickme Other InstructionsNot on filedocumented in this encounter [facility] filedocumented in this encounter [facility] Summary Purpose Family History No Family History Records Found Relationship Condition Age at Onset Recorded Date/T earl father Heart disease Unknown Hypertension Unknown Diabetes mellitus Unknown Unknown grandparent Heart disease Unknown History of stroke Unknown grandparent Unknown Heart disease Unknown grandparent Motor vehicle accident Unknown Not Specified History of stroke Unknown sister Family history of mental disorder Unknown Advance Directives No Advanced Directives Records Found Advance Directive Response Recorded Date/ Time Advance Directives No November 13 8:11am Advance Directive Response Recorded Date/ Time Advance Directives No November 13 7:11am Chief Complaint and Reason for Visit Chief Complaint M54.2 R20.0 M25.562 Chief Complaint Chronic Kidney Disea se Chief Complaint Unknown Chief Complaint Unknown RENAL 6 month f/u Reason for Visit CKD (chronic kidney disease) stage 3, GFR 30-59 ml/min [id number] Hyperuricemia Hypoparathyroidism Type 2 diabetes mellitus with diabetic chronic kidney disease Vitamin D deficiency Reason for Referral Specialty Diagnoses / Procedures Referred By Marina ruiz Referred To Contact Diagnoses Dysphagia, unspecified type Procedures Fluoroscopy esophagus Renee Gruber, GAMEROOM TECHNICIAN-FINANCIAL PROCESSING CLERK [address] [place] [address] Referral ID Status Reason Start Date Expiration Date V isits Requested Visits Authorized [id number] Pending Review 08/14/2023 08/13/2024 1 1 Additional Source Comments INFORMATION SOURCE (unrecogn ized section and content) DATE CREATED AUTHOR 11/18/2017 [facility] DATE CREATED AUTHOR AUTHOR'S ORGANIZ ATION 11/18/2017 [facility] DATE CREATED AUTHOR AUTHOR'S ORGANIZ ATION 11/16/2020 [facility] DATE CREATED AUTHOR AUTHOR'S ORGANIZ ATION 08/20/2022 [facility] DATE CREATED AUTHOR AUTHOR'S ORGANIZ ATION 08/16/2023 [facility] DATE CREATED AUTHOR AUTHOR'S ORGANIZ ATION 09/02/2023 [facility] DATE CREATED AUTHOR AUTHOR'S ORGANIZ ATION 09/06/2023 [facility] DATE CREATED AUTHOR AUTHOR'S ORGANIZ ATION 11/04/2023 [facility] DATE CREATED AUTHOR AUTHOR'S ORGANIZ ATION 11/15/2023 [facility] dical Specialists EPIC REASON FOR VISIT (unrecogniz ed section and content) Reason Comments Difficulty Swallowing Trouble swallowing Care Teams (unrecognized sec tion and content) Team Status: Inactive Member Role Status Dates Arthur Moy MD Attending Provider Active Team Status: Active Member Role Status Dates Ann Fournier NP-C Primary Care Provider Active Team Status: Inactive Member Role Status Dates Ann Fournier NP-C Primary Care Provider Active Anila Granados MD Attending Provider Active Picker / Packer Relationship Specialty Start Date End Date Ann Fournier GAMEROOM TECHNICIAN-FINANCIAL PROCESSING CLERK [address] [facility], [place] [address] PCP - General Family Medicine 08/14/23 Picker / Packer Relationship Specialty Start Date End Date Ann Fournier GAMEROOM TECHNICIAN-FINANCIAL PROCESSING CLERK [address] [facility], [place] [address] PCP - General Family Medicine 08/14/23 Team Status: Inactive Member Role Status Dates Ann Fournier NP-Leo Primary Care Provider Active Start: September 03, 2023 End: September 03, 2023 Antonio Boo DO Attending Provider Active Start: September 03, 2023 End: September 03, 2023 Picker / Packer Relationship Specialty Start Date End Date Ann Fournier GAMEROOM TECHNICIAN-FINANCIAL PROCESSING CLERK [address] [facility], [place] [address] PCP - General Family Medicine 08/14/23 Team Status: Active Member Role Status Dates CAROLYN Fitzgerald Primary Care Provider Active Start: October 08, 2023 Anila Granados MD Attending Provider Active Start : October 08, 2023 Team Status: Inactive Member Role Status Dates CAROLYN Fitzgerald Primary Care Provider Active Start: October 09, 2023 End: October 09, 2023 Anila Granados MD Attending Provider Active Start : October 09, 2023 End: October 09, 2023 Goals (unrecognized section and content) Goals may [...] BE BASED ON THE PRIMARY CLINICAL RECORDS. [facility]. provides no warranty or guarantee of the accuracy or completeness of information in this document.
[2023-11-24] MEDS: REGADENOSON 0.4 MG/5 ML SYRINGE 0.400000000000000022 MG IV (08:58)
--- NOTE | 2023-11-24 09:05 | PC.NURSE ---
Nursing Note Cardiac Stress Test Reviewed: Medication, allergies and patient history reviewed. Stress Test: [ x] Patient tolerated stress test well. [ ] Patient unable to tolerate walking on treadmill. Switched to Lexiscan stress test. [ x] No chest pain noted per patient [ ] Chest pain that resolved prior to leaving stress lab. [ x] No dyspnea noted. [ ] Dyspnea that resolved prior to leaving stress lab. [ x] Patient left stress lab asymptomatic and hemodynamically stable. [ ] Patient taken to the Emergency Room due to non-resolving symptoms following stress test. [ ] Patient achieved target heart rate. [ ] Patient unable to achieve target heart rate. [ ] Aminophylline administered as reversal agent to Lexiscan (Regadenoson). [ ] Nitro administered. Nursing Comments: Lexiscan stress test completed. Pt tolerated well with no issues other then headache that started to go away prior to the end of test. Pt encouraged to drink something with caffeine at breakfast to help with symptoms.
[2023-11-24 09:08] LABS: Alanine Aminotransferase 47 U/L (14-59); Albumin Globulin Ratio 0.8; Albumin Level 3.5 g/dL (3.4-5.0); Alkaline Phosphatase 77 U/L (46-116); Anion Gap 17.5; Aspartate Amino Transferase 38 U/L (15-37); BUN Creatinine Ratio 19.4; Bilirubin Total 0.6 mg/dL (0.2-1.0); Calcium 9.4 mg/dL (8.5-10.1); Carbon Dioxide 24.2 mmol/L (21.0-32.0); Chloride 102 mmol/L (98-107); Chol HDL Ratio 5.2; Cholesterol 192 mg/dL (<=200); Estimated GFR (African America 54 (>=60); Estimated GFR (Non-African Ame 45 (>=60); Globulin 4.2 g/dL; Glucose 364 mg/dL (74-106); HDL Cholesterol 37 mg/dL (40-60); Potassium 3.7 mmol/L (3.5-5.1); Sodium 140 mmol/L (136-145); Total Protein 7.7 g/dL (6.4-8.2); Triglycerides 229 mg/dL (<=150); VLDL CHOLESTEROL 45.8 mg/dL
== END 2023-11-24 08:00 | disposition home or self-care (01) ==
LOC: CARD 07:59
PROVIDERS: PCP Nurse Practitioner Family; Visit Provider Internal Medicine Interventional Cardiology
DX: R07.9 Chest pain, unspecified (principal); I11.9 Hypertensive heart disease without heart failure
CPT/HCPCS: 36415; 80053; 80061; 93017; J2785

== ENCOUNTER 2023-12-08 12:55 | Outpatient (OUT) | payer MEDICARE, MEDICAID, SELFPAY ==
--- NOTE | 2023-12-08 13:00 | CA_ITS ---
Patient Name: MARY JANE [facility] MR#: [id number] : 1970 Exam Date: 12/08/2023 Ordering Doctor: DR CONCEPCIÓN VALADEZ M.D. ECHOCARDIOGRAM REPORT PROCEDURE: CA ECHO DOPPLER COMPLETE INDICATIONS: Dyspnea on exertion, diabetes COMPARISON: None. DESCRIPTION: COMPLETE ECHOCARDIOGRAM Real-time transthoracic echocardiography with 2D, M-mode, spectral and color flow Doppler performed. QUALITY: Technically difficult due to patient's condition. LEFT VENTRICLE: Normal chamber size. Normal left ventricular wall thickness. LV EF: Global left ventricular systolic function is difficult to assess but appears preserved; visually estimated ejection fraction is 55 to 60%. Unable to assess regional wall motion abnormalities. DIASTOLIC: Diastolic function is indeterminate. ATRIAL SEPTUM: Inadequately seen. LEFT ATRIUM: Normal chamber size. RIGHT ATRIUM: Normal chamber size. RIGHT VENTRICLE: Normal chamber size. Normal systolic function. TRICUSPID VALVE: Normal mobility and thickness. No regurgitation. Unable to assess right-sided pressures due to lack of measurable tricuspid regurgitation. MITRAL VALVE: Normal mobility and thickness. No evidence of mitral valve stenosis. Mild mitral annular calcification. No mitral regurgitation. AORTIC VALVE: Normal trileaflet appearance. No visible sclerosis. Normal leaflet mobility. No evidence of aortic valve stenosis. No aortic regurgitation. AORTIC ROOT: Normal diameter and appearance. Ascending aorta is normal in size. PULMONIC VALVE: Normal thickness and mobility. No stenosis. No regurgitation. PERICARDIUM: Anterior free space; trivial effusion versus fat pad. IVC: Not well visualized. CONCLUSION: 1. Global left ventricular systolic function is difficult to assess but appears preserved; visually estimated ejection fraction is 55 to 60% 2. Normal right ventricular size and systolic function 3. Diastolic function is indeterminate 4. No significant valvular abnormalities 5. Anterior free space; trivial effusion versus fat pad Adult Echocardiography Procedure Report Left Ventricle LVEDD (3.7 - 5.6 cm): 4.78 cm LVESD (2.2 - 4.0 cm): 3.43 cm LVIVS thickness (0.6 - 1.2 cm): 0.99 cm LVPW thickness (0.5 - 1.0 cm): 1.09 cm e': 0.07 m/s E - e': 15.68 LVOT Max Gradient: 2.07 mm[Hg] LVOT Area (cm2): 0.72 m/s Peak Velocity (LVOT): 0.72 m/s LVOT Diameter 2.32 cm Left Atrium LA Volume Index (2D A2C): 21.88 ml/m2 Left Atrium Systolic Dimension: 3.86 cm Mitral Valve MV E to A Ratio: 1.20 Mitral Valve A-Wave Peak Velocity: 0.86 m/s Mitral Valve E-Wave Peak Velocity: 1.03 m/s Right Ventricle Aorta AO Root Diam: 3.27 cm Ascending Ao Diam: 2.46 cm Aortic Valve AoV Area (Peak Jesus): 2.45 cm2, 2.45 cm2 Peak Velocity(Antegrade Flow): 1.25 m/s Peak Gradient(Antegrade Flow): 6.20 mm[Hg] Tricuspid Valve Pulmonic Valve Peak Gradient: 6.36 mm[Hg], 6.18 mm[Hg] Right Atrium Right Atrium Systolic Pressure: 29.57 ml, 29.57 ml Dictated by: Concepción Valadez M.D. on 12/08/2023 at 15:49 Approved by: Concepción Valadez M.D. on 12/08/2023 at 15:53
== END 2023-12-08 12:56 | disposition home or self-care (01) ==
LOC: CARD 12:56
PROVIDERS: PCP Nurse Practitioner Family; Visit Provider Internal Medicine Interventional Cardiology
DX: R06.09 Other forms of dyspnea (principal)
CPT/HCPCS: 93306

== ENCOUNTER 2023-12-26 14:21 | Emergency (ER) | payer MEDICARE, MEDICAID, SELFPAY ==
[2023-12-26 14:24] VITALS: BP 150/83; PULSE 74; TEMP 37; O2SAT 98; BMI 49.2
--- OUTSIDE RECORDS SUMMARY | 2023-12-26 14:34 | XMS_ITS | CCD ---
Author Organization [facility] Care Team Providers Care Line Welder Name Role Phone ANTONIO BRIAN Unavailable Unavailable [...] ANN Admitting Unavailable ANN FOURNIER Attending Unavailable SHANTANU ANN Consulting Unavailable JASMINE, ANILA Admitting Unavailable JASMINE, ANILA Attending Unavailable JASMINE, ANILA Consulting Unavailable SHANTANU, ANN Primary Care Unavailable SAMSA ., DENYS Admitting Unavailable SAMSA ., DENYS Attending Unavailable Zieber, Afia Consulting Unavailable SHANTANU, ANN Primary Care Unavailable SAMSA ., DENYS Consulting Unavailable DR AZEEM FITZGERALD Admitting Unavailable AMILCAR, DR AZEEM Whyte Attending [...] Unavailable CAROLYN Fournier Tash Primary Care Provider MD Anila Granados Attending Provider Shantanu ZIGZAG TOPSTITCHER-BODY JOINER, Ann S Primary Care Provider SHANTANU, ANN S Primary Care Unavailable SHYANN JONSE Attending Unavailable SHYANN JONES Referring Unavailable SHANTANU, ANN S Primary Care Unavailable RENEE GRUBER Attending Unavailable JARAD NULL Referring Unavailable TENNILLEJARAD NICHOLSON Primary Care Unavailable SHANTANU, ANN S Referring Unavailable SHANTANU, ANN S Primary Care Unavailable CAROLYN Fournierela Tash Primary Care Provider 1( [phone] DO Antonio Boo Attending Provider Antonio Boo Admitting Unavailable Antonio Boo Attending Unavailable Shantanu, Ann Tash Primary Care Unavailable Anila Granados Admitting Unavailable Anila Granados Attending Unavailable Shantanu, Ann Tash Primary Care Unavailable Arthur Moy Admitting Unavailable Chinmay, Arthur Attending Unavailable ENEDINA ROMERO Attending Unavailable ENEDINA ROMERO Attending Unavailable ENEDINA ROMERO Attending Unavailable IRMA NGUYEN Attending Unavailable ENEDINA ROMERO Attending Unavailable REBECA VALADEZ Attending Unavailable ROHAN, EHAB Attending Unavailable Allergies Allergy Classification Reported Allergen(s) Allergy Type Date of Onset Reaction(s) Facility Acetaminophen / oxyCODONE (1 source) Acetaminophen / oxyCODONE Drug Allergy [address] [facility] Repository Aspirin (1 source) Aspirin Drug Allergy [facility] Cephalosporins (antibiotic) (3 sources) Cephalexin; 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: [cephalexin] Drug Allergy [facility] Macrolides (antibiotic) (1 source) Clarithromycin Drug Allergy [facility] Penicillins (antibiotic) (1 source) Penicillin Drug Allergy [facility] Quinolones (antibiotic) (2 sources) moxifloxacin; 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: [Cipro] Drug Allergy [facility] Sulfamethoxazole / Trimethoprim (1 source) Sulfamethoxazole / Trimethoprim Drug Allergy [facility] Unclassified (12 sources) Adhesive agent Drug allergy (disorder) Unknown, Rash [facility] (12 sources) Acetaminophen / oxyCODONE Drug Allergy Vomiting [employer] [facility] Other (17 sources) Aspirin; 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: [ASPIRIN] Drug [facility]ergy [facility] (10 sources) cefprozil; 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: [Cefzil] Drug Allergy Unknown [facility] Repository (17 sources) Cephalexin; 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: [CEPHALEXIN] Drug Allergy [facility] [employer] Other (11 sources) Cephalosporins (Antibiotic) Propensity to adverse reactions [facility] (20 sources) Ciprofloxacin; 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: [ciprofloxacin] Drug Allergy [facility] [employer] Other (20 sources) moxifloxacin; 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: [MOXIFLOXACIN] Drug Allergy [facility] [employer] Other (11 sources) oxyCODONE Drug Allergy nausea [facility] (11 sources) penicillAMINE Drug Allergy anaphylaxis [facility] (14 sources) Penicillins; 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: [PENICILLINS] Propensity to adverse reactions Unknown [facility] Repository (12 sources) Soy protein; 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: [soy] Propensity to adverse reactions 014 anaphylaxis [facility] Repository (16 sources) Sulfamethoxazole; 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: [SULFAMETHOXAZOLE] Drug Allergy 011 Anaphylaxis, Swelling [facility] [employer] Other (12 sources) Sulfamethoxazole / Trimethoprim Drug Allergy [address] [facility] [employer] Other (16 sources) Sulfanilamide; 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: [SULFANILAMIDE] Drug Allergy Anaphylaxis [facility] [employer] Other (16 sources) Trimethoprim; 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: [TRIMETHOPRIM] Drug Allergy Anaphylaxis [facility] Other (11 sources) Foam Tape Propensity to adverse reactions Unknown, Rash [facility] (11 sources) BCise Propensity to adverse reactions stomach upset [facility] (9 sources) Avalox Propensity to adverse reactions Unknown [facility] Other (1 source) Acetaminophen / oxyCODONE Drug Allergy [facility] (1 source) Aspirin Drug Allergy [facility] (1 source) Cephalexin Drug Allergy [facility] (1 source) Ciprofloxacin Drug Allergy [facility] (1 source) Clarithromycin Drug Allergy [facility] (1 source) Desonide Drug Allergy [facility] (1 source) egg extract Drug Allergy [facility] (1 source) moxifloxacin Drug Allergy [facility] (1 source) Penicillins Drug allergy (disorder) [facility] (1 source) Sulfamethoxazole / Trimethoprim Drug Allergy [facility] (1 source) tomato allergenic extract Drug Allergy [facility] (1 source) Misc-ENV; 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: [Misc-ENV] Propensity to adverse reactions (disorder) [facility] (1 source) Misc-Other; 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: [Misc-Other] Propensity to adverse reactions (disorder) [facility] (1 source) Misc-Food; 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: [Misc-Food] Food allergy (disorder) [facility] (14 sources) Azithromycin; 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: [AZITHROMYCIN] Drug Allergy rash, Hives [facility] (8 sources) cefprozil; 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: [CEFPROZIL] Drug Allergy 011 Hives [facility] (3 sources) Penicillins Propensity to adverse reactions to drug Anaphylaxis [facility] (3 sources) Acetaminophen / oxyCODONE; 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: [OXYCODONE-ACETAMIN OPHEN] Drug Allergy [facility] (3 sources) Sulfamethoxazole / Trimethoprim; 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: [SULFAMETHOXAZOLE-T RIMETHOPRIM] Drug Allergy [facility] (2 sources) Acetaminophen Drug Allergy Unknown Reaction [facility] (1 source) atorvastatin; 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: [ATORVASTATIN] Drug Allergy [facility] (1 source) Simvastatin; 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: [SIMVASTATIN] Drug Allergy [facility] (1 source) OTHER; 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: [OTHER] Propensity to adverse reactions (disorder) [facility] Rep[facility] Medications Current Medications Medication Drug Class(es) Dates Sig (Normalized) Sig (Original) [id number] 200 actuat albuterol 0.09 mg/actuat metered dose [...] DAYS; Note: Source Status: Taking; Provider: Dr Rich Dupixent 300 MG/ 2ML as directed Subcutaneous [...] by mouth in the mo rning fexofenadine (CHACHA) 180 mg tablet Take 1 tablet (180 [...] oral tablet (13 sources) Loop Diuretic Start: 10-09-2023 take 1 tablet by mouth [...] Active krill oil (10 sources) Start: 10-09-2023 Skksr-Qo-4-Dha -Zfo-Dqpivox-Uas (Krill Oil) 1,341-070-89-80 mg capsule Active 1 CAP PO Twice daily October 09, 2023 12:00am Krill Oil 300 MG Orally Active qcomb-eysxm-1-enc-dnw-oobrzt 654-17-05-50 mg capsule (3 sources) aqthv-gbuni-9-dh t-anb-phxray 795-73-93-50 mg capsule Take by mouth. 0 Active [...] 11-03-2017 montelukast (S INGULAIR) 10 mg tablet Dywhoyyl-Aol-Jdacjmw Sulfate (One Daily Multi-Vit W-Mineral) 4.5 mg iron tablet (1 source) Start: 10-09-2023 take 1 tablet by mouth once daily Bhrojwpx-Hsm-Ypsatqf Sulfate (One Daily Multi-Vit W-Mineral) 4.5 mg [...] ( PROTONIX) 40 mg EC tablet Pen [place] 5/16 (3 sources) Start: 08-05-2018 Pen [place] 5/ 16 USE WITH PEN INSULIN SQ qid for 90 day(s) Jul, Active plant stanol anisa 450 mg oral tablet (1 source) Start: 10-09-2023 take 1 tablet by mouth once Plant Stanol Anisa Active TAB PO October 09, 2023 12:00am FreeTextSig: Orally; Note: Source Status: TakingTWICE A DAY; Provider: Jasmnie High ( ) Polydextrose (Childrens Fiber Gummy [...] mg c apsule take 1 capsule by [facility] [place] every eight hours Lyrica 100 MG 1 [...] every 6 hrs for 7 days ANIYAH: [id number] September, Active triamcinolone acetonide 0.001 mg/mg topical [...] Start: 11-11-2022 Durolane Oct, 60 mg nystatin [id number] unt/ml topical cream (1 source) Polyene Antifungal [...] disease (4 sources) Atherosclerotic heart disease of [place] coronary artery without angina pectoris; 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: [Unstable [...] sources) Long-term current use of insulin; 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: [prison (current) use of insulin] Episodic Other aftercare (9 sources) H/O: high risk medication; 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: [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] Episodic Other diseases of [...] tachycardia, unspecified; 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: [Supraventricular tachycardia, unspecified] Onset: 4 Past or Other Problems Problem [...] 02-11-2022 Episodic Other aftercare (1 source) Other correction (current) drug therapy; 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] Onset: 09-10-2021 Episodic Other aftercare (1 source) prison (current) use of insulin; Translations: [INTERMEDIATE CURRENT USE OF INSULIN] Onset: 09-10-2021 Episodic [...] Value Interpretation Reference Range Facility Office Visiton 12-18-2023 Follow-up visit [id number] [facility],Authumn D 1970 F Date Provider Department Center 12/18/2023 REBECA ANDRES Family History Problem Relation Age of Onset Angina Mother Heart attack Mother Heart attack Maternal Grandfather Family Status - Relation Status Age at Mother Maternal Grandfather Level of Service:13619 HI OFFICE/OUTPATIENT ESTABLISHED MOD MDM 30 MIN [facility] 36on 11-26-2023 36 Rx sent to patient's pharmacy per her request. [facility] 36on 11-24-2023 36 Patient called back and said a lady at her pharmacy told her about Nexletol (bempedoic acid). Can I send RX for that? I told her if it was too pricey for her we could then try injections. Please advise. Thanks. [facility] 36 Regarding lab results from 11/24/2023: MD Theresa Howell MA Please prescribe Repatha or Praluent - whichever is covered by insurance Thanks for patient on her VM asking her to return my call. [facility] Office Visiton 11-03-2023 [facility] [id number] [facility] 1970 Provider Department Center 11/03/2023 REBECA ANDRES Family History Problem Relation Age of Onset Angina Mother Heart attack Mother Heart attack Maternal Grandfather Family Status - Relation Status Age at Mother Maternal Grandfather Level of Service:85516 HI OFFICE/OUTPATIENT NEW MODERATE MDM 45 MINUTES [facility] Erythrocyte distribution wid th Auto (RBC) [Ratio]on 10-08-2023 Erythrocyte distribution width (RBC) [Ratio] 13.1 % 11.0-15.0 [facility] Estimated glomerular filtrat ion rate (GFR) non- Americanon 10-08-2023 GFR/1.73 sq M.predicted among non-blacks MDRD (S/P/Bld) [Vol rate/Area] 44 mL/min/{1.73_m2} >=60 [facility] Hematocrit Auto (Bld) [Volum e fraction]on 10-08-2023 Hematocrit (Bld) [Volume fraction] 43.0 % 36.0-48.0 [facility] Hemoglobin [Mass/volume] in Bloodon 10-08-2023 Hemoglobin (Bld) [Mass/Vol] 14.1 g/dL 12.0-16.0 [facility] Laboratory - Chemistry and C hemistry - challengeon 10-08-2023 Albumin [Mass/Vol] 3.5 g/dL 3.4-5.0 [facility] Calcium [Mass/Vol] 9.7 mg/dL 8.5-10.1 [facility] Chloride [Moles/Vol] 96 mmol/L 98-107 [facility] CO2 [Moles/Vol] 18.7 mmol/L 21.0-32.0 [facility] Creatinine [Mass/Vol] 1.25 mg/dL 0.55-1.02 [facility] GFR/1.73 sq M.predicted MDRD (S/P/Bld) [Vol rate/Area] 54 mL/min/{1.73_m2} >=60 [facility] Glucose [Mass/Vol] 472 mg/dL 74-106 [facility] Magnesium [Mass/Vol] 2.1 mg/dL 1.8-2.4 [facility] Potassium [Moles/Vol] 4.3 mmol/L 3.5-5.1 [facility] Sodium [Moles/Vol] 135 mmol/L 136-145 [facility] Urate [Mass/Vol] 13.4 mg/dL 2.6-6.0 [facility] Urea nitrogen [Mass/Vol] 19.0 mg/dL 7.0-18.0 [facility] Urea nitrogen/Creatinine [Mass ratio] 15.2 mg/mg [facility] Laboratory - Urinalysison Protein (U) [Mass/Vol] 36.5 mg/dL <=11.9 [facility] Leukocytes [#/volume] correc will for nucleated erythrocytes in Blood by Automated counon 10-08-2023 WBC corrected for nucl RBC Auto (Bld) [#/Vol] 4.9 10 3/uL 4.0-11.0 [facility] MCH Auto (RBC) [Entitic mass ]on 10-08-2023 MCH (RBC) [Entitic mass] 30.7 pg 26.7-34.0 [facility] MCHC Auto (RBC) [Mass/Vol]on 10-08-2023 MCHC (RBC) [Mass/Vol] 32.8 g/dL 29.9-35.2 [facility] MCV Auto (RBC) [Entitic vol] on 10-08-2023 MCV (RBC) [Entitic vol] 93.7 fL 81.0-99.0 [facility] No Panel Informationon 10-07 25-Hydroxy Vitamin D Total 108.3 ng/mL [facility] Comment on above: <20 ng/mL Vit D defi cient20-<30 ng/mL Vit D watvqaomfofw48-682 ng/mL Vit D sufficient>100 ng/mL Potential Toxicity Parathyroid Hormone (Intact) 8 pg/mL 15-65 [facility] Comment on above: Performed at: [facility] [employer] [address] [id number] Director: Godwin Menjivar PhD, Phone: [phone] Phosphorus Level 3.6 mg/dL 2.6-4.7 [facility] Urine Random Creatinine 38.95 mg/dL 20.00-300.0 0 [facility] Platelet mean volume Auto (B ld) [Entitic vol]on 10-08-2023 Platelet mean volume (Bld) [Entitic vol] 13.0 fL 9.5-13.5 [facility] Platelets Auto (Bld) [#/Vol] on 10-08-2023 Platelets (Bld) [#/Vol] 144 10 3/uL 150-450 [facility] RBC Auto (Bld) [#/Vol]on RBC (Bld) [#/Vol] 4.59 10 6/uL 4.20-5.40 [facility] Serum or plasma anion gap de terminationon 10-08-2023 Anion gap [Moles/Vol] 24.6 mmol/L [facility] Urine protein/creatinine rat ioon 10-08-2023 Protein/Creatinine (U) [Ratio] 0.94 [facility] EGDon 09-03-2023 [facility] Dylan 09-03-2023 L Specimen: [id number] Received: 09/03/23 Status: CATHIEFrantz Aldana Num: [id number] Spec Type: Surgical Subm Dr: Antonio Boo DO Tissues: A Gastric Biopsy (ANTRUM) Procedures: HE/2, Gross/Micro L4 Age/ Patient Sex Location Account Attending Physician [facility],Authumn D 53/F LABELL [id number] Antonio Boo DO SPEC NUM: [id number] RECD: 09/03/23 STATUS: TIEN MILTON NUM: [id number] KEVIN: 09/03/[address]: Antonio Boo DO ENTERED: 09/03/23 [facility] DR: Sunshine Marin SPEC TYPE: Surgical DEPT: STEPHEN DUGGAN ORDERED: [...] each. Totally submitted in cassette A1. Specimen: [id number] Received: 09/03/23 Status: TIEN Aldana Num: [id number] Spec Type: Surgical Subm Dr: Antonio Boo DO Tissues: A Gastric Biopsy (ANTRUM) Procedures: Malena VILA/Shikha L4 [id number] (Continued) Specimen: [id number] Received: 09/03/23 (Continued) Signed (signature on file) Eder Mckinney MD 09/06/231849 Specimen: [id number] Received: 09/03/23 Status: TIEN Aldana Num: [id number] Spec Type: Surgical Subm Dr: Antonio Boo DO Tissues: A Gastric Biopsy (ANTRUM) Procedures: Malena VILA/Shikha L4 Patient: Mary Jane Scheaffer [id number] (Continued) Specimen: [id number] Received: 09/03/23 (Continued) CPT Codes 79512 Specimen: [id number] Received: 09/03/23 Status: TIEN Aldana Num: [id number] Spec Type: Surgical Subm Dr: Antonio Boo DO Tissues: A Gastric Biopsy (ANTRUM) Procedures: HE/2, Gross/Micro L4 Patient: Mary Jane Schaeffer [id number] (Continued) Signed (signature on file) Eder Mckinney MD 09/06/23 4841 [facility] POCT Rehab GlucoseOrdered By : Jeni Bonilla on 09-03-[address] [facility] [address] BRAIN WO CONTon CT BRAIN WO [...] Antonio Elizondo on 08/14/2023 5:19 PM Normal [facility] CT CERVICAL SPINE WO CONTon 08-14-2023 [...] Miles Elder DO on 08/14/2023 5:15 PM IAntonio MD have personally reviewed the image(s) and agree with and/or edited the report Finalized by Antonio Og MD on 08/14/2023 5:30 PM Normal [facility] Albumin [Mass/volume] in Ser um or Plasma by Bromocresol green (BCG) dye binding methoOrdered By: Anila Granados on 04-30-2023 Albumin BCG dye [Mass/Vol] 3.8 g/dL 3.5-5.7 [facility] Automated erythrocytes count in urine sediment (number/area)Ordered By: Anila Granados on 04-30-2023 RBC Auto (Urine sed) [#/Area] 5-9 [HPF] 0-4 [facility] Automated leukocytes count i n urine sediment (number/area)Ordered By: Anila Granados on 04-30-2023 WBC Auto (Urine sed) [#/Area] 1-2 [HPF] 0-4 [facility] Bilirubin Test strip Ql (U)O rdered By: Anila Granados on 04-30-2023 Bilirubin Ql (U) Negative Negative [facility] Calcium [Mass/volume] in Ser um or PlasmaOrdered By: Anila Granados on 04-30-2023 Calcium [Mass/Vol] 9.1 mg/dL 8.6-10.3 [facility] Carbon dioxide, total [Moles /volume] in Serum or PlasmaOrdered By: Anila Granados on 04-30-2023 CO2 [Moles/Vol] 31.5 mmol/L 21.0-31.0 [facility] Chloride [Moles/volume] in S faviola or PlasmaOrdered By: Anila Granados on 04-30-2023 Chloride [Moles/Vol] 102 mmol/L 98-107 [facility] Color Auto (U)Ordered By: Ab garcia Granados on 04-30-2023 Color (U) Yellow Yellow [facility] Creatinine [Mass/volume] in Serum or PlasmaOrdered By: Anila Granados on 04-30-2023 Creatinine [Mass/Vol] 1.53 mg/dL 0.60-1.20 [facility] Creatinine [Mass/volume] in UrineOrdered By: Anila Granados on 04-30-2023 Creatinine (U) [Mass/Vol] 34.0 mg/dL 11.0-20.0 [facility] Dipstick and Microscopicon 1 06-30-2022 Appearance (U) Clear Normal Clear [facility] Comment on above: Order Comment: Reaso n for Exam Chronic kidney disease, stage III (moderate);Disorders of fl Name Collection Type:: Clean-Voided Midstream Performed By: #### A DDONUAPLUS #### [facility] [address] [place] [address] [place] Bacteria,Urine None Seen Normal None Seen [facility] Comment on above: Order Comment: Reaso n for Exam Chronic kidney disease, stage III (moderate);Disorders of fl Name Collection Type:: Clean-Voided Midstream Performed By: #### A DDONUAPLUS #### [facility] [address] [id number] [place] Bilirubin,Urine Negative Normal Negative [facility] Comment on above: Order Comment: Reaso n for Exam Chronic kidney disease, stage III (moderate);Disorders of fl Name Collection Type:: Clean-Voided Midstream Performed By: #### A DDONUAPLUS #### [facility] [address] [id number] [place] Color (U) Yellow Normal Yellow [facility] Comment on above: Order Comment: Reaso n for Exam Chronic kidney disease, stage III (moderate);Disorders of fl Name Collection Type:: Clean-Voided Midstream Performed By: #### A DDONUAPLUS #### [address] Glucose Ql (U) Normal Normal Normal [facility] Comment on above: Order Comment: Reaso n for Exam Chronic kidney disease, stage III (moderate);Disorders of fl Name Collection Type:: Clean-Voided Midstream Performed By: #### A DDONUAPLUS #### [address] Hyaline Casts,Urine None Seen Normal 0-8 [facility] Comment on above: Order Comment: Reaso n for Exam Chronic kidney disease, stage III (moderate);Disorders of fl Name Collection Type:: Clean-Voided Midstream Result Comment: PERF ORMED BY: [place] [address] PATHOLOGIST PATTERN PUNCHER MEERA GRIFFITHS M.D. Performed By: #### A DDONUAPLUS #### [place] [address] [place] Ketones Ql (U) Negative Normal Negative [facility] Comment on above: Order Comment: Reaso n for Exam Chronic kidney disease, stage III (moderate);Disorders of fl Name Collection Type:: Clean-Voided Midstream Performed By: #### A DDONUAPLUS #### [address] Leukocyte esterase Test strip Ql (U) 1+ High Negative [facility] Comment on above: Order Comment: Reaso n for Exam Chronic kidney disease, stage III (moderate);Disorders of fl Name Collection Type:: Clean-Voided Midstream Performed By: #### A DDONUAPLUS #### [place] [address] [place] Nitrite,Urine Negative Normal Negative [facility] Comment on above: Order Comment: Reaso n for Exam Chronic kidney disease, stage III (moderate);Disorders of fl Name Collection Type:: Clean-Voided Midstream Performed By: #### A DDONUAPLUS #### [address] [address] [place] Occult Blood,Urine Negative Normal Negative [facility] Comment on above: Order Comment: Reaso n for Exam Chronic kidney disease, stage III (moderate);Disorders of fl Name Collection Type:: Clean-Voided Midstream Performed By: #### A DDONUAPLUS #### [facility] [address] [place] [address] pH (U) 6.5 [pH] Normal 5.0-9.0 [facility] Comment on above: Order Comment: Reaso n for Exam Chronic kidney disease, stage III (moderate);Disorders of fl Name Collection Type:: Clean-Voided Midstream Performed By: #### A DDONUAPLUS #### [facility] [address] [place] [address] Protein,Urine Negative Normal Negative [facility] Comment on above: Order Comment: Reaso n for Exam Chronic kidney disease, stage III (moderate);Disorders of fl Name Collection Type:: Clean-Voided Midstream Performed By: #### A DDONUAPLUS #### [facility] [address] [place] [address] RBC,Urine 5-9 High 0-4 [facility] Comment on above: Order Comment: Reaso n for Exam Chronic kidney disease, stage III (moderate);Disorders of fl Name Collection Type:: Clean-Voided Midstream Performed By: #### A DDONUAPLUS #### [facility] [address] [place] [address] [place] Specificy [place],Urine 1.010 Normal 1.001-1.030 [facility] Comment on above: Order Comment: Reaso n for Exam Chronic kidney disease, stage III (moderate);Disorders of fl Name Collection Type:: Clean-Voided Midstream Performed By: #### A DDONUAPLUS #### [facility] [address] [place] [address] [place] Squamous Epithelial Cell,Urine 0-1 Normal 0-2 [facility] Comment on above: Order Comment: Reaso n for Exam Chronic kidney disease, stage III (moderate);Disorders of fl Name Collection Type:: Clean-Voided Midstream Performed By: #### A DDONUAPLUS #### [facility] [address] Urobilinogen,Urine Normal Normal Normal [facility] Comment on above: Order Comment: Reaso n for Exam Chronic kidney disease, stage III (moderate);Disorders of fl Name Collection Type:: Clean-Voided Midstream Performed By: #### A DDONUAPLUS #### [facility] [address] WBC,Urine 1-2 Normal 0-4 [facility] Comment on above: Order Comment: Reaso n for Exam Chronic kidney disease, stage III (moderate);Disorders of fl Name Collection Type:: Clean-Voided Midstream Performed By: #### A DDONUAPLUS #### [facility] [address] Erythrocyte distribution wid th Auto (RBC) [Ratio]Ordered By: Anila Granados on 04-30-2023 Erythrocyte distribution width (RBC) [Ratio] 14.9 % 11.9-15.3 [facility] Glucose [Mass/volume] in Ser um or PlasmaOrdered By: Anila Granados on 04-30-2023 Glucose [Mass/Vol] 244 mg/dL 70-100 [facility] Comment on above: ADA recommended refe rence rangeRandom Glucose Reference Range is dependent on time and content of last meal. Glucose of more than 200 mg/dL in a nonstressed, ambulatory subject supports the diagnosis of Diabetes Mellitus. Hematocrit Auto (Bld) [Volum e fraction]Ordered By: Anila Granados on 04-30-2023 Hematocrit (Bld) [Volume fraction] 38.6 % 34.0-46.4 [facility] Hemoglobin [Mass/volume] in BloodOrdered By: Anila Granados on 04-30-2023 Hemoglobin (Bld) [Mass/Vol] 12.7 g/dL 11.8-15.4 [facility] Hemogram CBC Without Diffon 04-30-2023 Erythrocyte distribution width (RBC) [Ratio] 14.9 % Normal 11.9-15.3 [facility] Comment on above: Order Comment: Reaso n for Exam Chronic kidney disease, stage III (moderate);Disorders of fl Performed By: #### C BCNO #### [address] Hematocrit (Bld) [Volume fraction] 38.6 % Normal 34.0-46.4 [facility] Comment on above: Order Comment: Reaso n for Exam Chronic kidney disease, stage III (moderate);Disorders of fl Performed By: #### C BCNO #### [address] Hemoglobin (Bld) [Mass/Vol] 12.7 g/dL Normal 11.8-15.4 [facility] Comment on above: Order Comment: Reaso n for Exam Chronic kidney disease, stage III (moderate);Disorders of fl Performed By: #### C BCNO #### [address] MCH (RBC) [Entitic mass] 31.6 pg Normal 24.7-34.3 [facility] Comment on above: Order Comment: Reaso n for Exam Chronic kidney disease, stage III (moderate);Disorders of fl Performed By: #### C BCNO #### [address] MCV (RBC) [Entitic vol] 96.3 fL Normal 80-100 [facility] Comment on above: Order Comment: Reaso n for Exam Chronic kidney disease, stage III (moderate);Disorders of fl Performed By: #### C BCNO #### [address] Mean Corpuscular HGB Conc 32.8 g/dL Normal 32.0-35.0 [facility] Comment on above: Order Comment: Reaso n for Exam Chronic kidney disease, stage III (moderate);Disorders of fl Performed By: #### C BCNO #### [address] Platelet mean volume (Bld) [Entitic vol] 10.8 fL High 6.3-10.7 [facility] Comment on above: Order Comment: Reaso n for Exam Chronic kidney disease, stage III (moderate);Disorders of fl Result Comment: PERF ORMED BY: [place] [address] PATHOLOGIST PATTERN PUNCHER MEERA GRIFFITHS M.D. Performed By: #### C BCNO #### [facility] [address] Platelets (Bld) [#/Vol] 164 10*3/uL Normal 150-450 [facility] Comment on above: Order Comment: Reaso n for Exam Chronic kidney disease, stage III (moderate);Disorders of fl Performed By: #### C BCNO #### [facility] [address] RBC (Bld) [#/Vol] 4.01 10*6/uL Normal 3.60-5.00 [facility] Comment on above: Order Comment: Reaso n for Exam Chronic kidney disease, stage III (moderate);Disorders of fl Performed By: #### C BCNO #### [facility] [address] WBC (Bld) [#/Vol] 5.2 10*3/uL Normal 3.8-11.6 [facility] Comment on above: Order Comment: Reaso n for Exam Chronic kidney disease, stage III (moderate);Disorders of fl Performed By: #### C BCNO #### [address] Ketones Auto test strip (U) [Mass/Vol]Ordered By: Anila Granados on 04-30-2023 Ketones (U) [Mass/Vol] Negative Negative [facility] - UrinalysisOrder ed By: Anila Granados on 04-30-2023 Hyaline casts LM Ql (Urine sed) None seen [LPF] 0-8 [facility] Leukocytes [#/volume] correc will for nucleated erythrocytes in Blood by Automated counOrdered By: Anila Granados on 04-30-2023 WBC corrected for nucl RBC Auto (Bld) [#/Vol] 5.2 10*3/uL 3.8-11.6 [facility] MCH Auto (RBC) [Entitic mass ]Ordered By: Anila Granados on 04-30-2023 MCH (RBC) [Entitic mass] 31.6 pg 24.7-34.3 [facility] MCHC Auto (RBC) [Mass/Vol]Or dered By: Anila Grnaados on 04-30-2023 MCHC (RBC) [Mass/Vol] 32.8 g/dL 32.0-35.0 [facility] MCV Auto (RBC) [Entitic vol] Ordered By: Anila Granados on 04-30-2023 MCV (RBC) [Entitic vol] 96.3 fL 80-100 [facility] Magnesiumon 04-30-2023 Magnesium [Mass/Vol] 1.9 mg/dL Normal 1.9-2.7 [facility] Comment on above: Order Comment: Reaso n for Exam Chronic kidney disease, stage III (moderate);Disorders of fl Performed By: #### U FERNANDO, RENAL, MG, [id number] #### [address] Magnesium [Mass/volume] in S faviola or PlasmaOrdered By: Anila Granados on 04-30-2023 Magnesium [Mass/Vol] 1.9 mg/dL 1.9-2.7 [facility] Nitrite Test strip Ql (U)Ord ered By: Anila Granados on 04-30-2023 Nitrite Ql (U) Negative Negative [facility] No Panel InformationOrdered By: Anila Granados on 04-30-2023 Estimated GFR (CKD-EPI) 40.189 mL/Min [facility] Creatinine Clearance (Chem N/A [facility] Parathyrin.intact [Mass/volu me] in Serum or PlasmaOrdered By: Anila Granados on 04-30-2023 Parathyrin.intact [Mass/Vol] 19.7 pg/mL [facility] Parathyroid Hormone Intacton 04-30-2023 Parathyroid Hormone Intact 19.7 pg/mL Normal [facility] Comment on above: Order Comment: Reaso n for Exam Chronic kidney disease, stage III (moderate);Disorders of fl Result Comment: PERF ORMED BY: [place] [address] PATHOLOGIST PATTERN PUNCHER MEERA GRIFFITHS M.D. Performed By: #### P TH #### [facility] [address] [place] [address] Phosphate [Mass/volume] in S faviola or PlasmaOrdered By: Anila Jasmine on 04-30-2023 Phosphate [Mass/Vol] 4.1 mg/dL 2.5-4.5 [facility] Platelet mean volume Auto (B ld) [Entitic vol]Ordered By: Anila Jasmine on 04-30-2023 Platelet mean volume (Bld) [Entitic vol] 10.8 fL 6.3-10.7 [facility] Platelets Auto (Bld) [#/Vol] Ordered By: Anila Jasmine on 04-30-2023 Platelets (Bld) [#/Vol] 164 10*3/uL 150-450 [facility] Potassium [Moles/volume] in Serum or PlasmaOrdered By: Anila Jasmine on 04-30-2023 Potassium [Moles/Vol] 4.0 mmol/L 3.5-5.1 [facility] Protein Auto test strip (U) [Mass/Vol]Ordered By: Anila Sellersr on 04-30-2023 Protein (U) [Mass/Vol] Negative Negative [facility] Protein Creat Ratio Ur Rando mon 04-30-2023 Creatinine, Urine (Random) 34.0 mg/dL High 11.0-20.0 [facility] Comment on above: Order Comment: Reaso n for Exam Chronic kidney disease, stage III (moderate);Disorders of fl Performed By: #### P ROCRERAT #### [facility] [address] [place] [address] Protein (U) [Mass/Vol] 4 mg/dL Normal 0-9 [facility] Comment on above: Order Comment: Reaso n for Exam Chronic kidney disease, stage III (moderate);Disorders of fl Performed By: #### P ROCRERAT #### [facility] [address] [place] [address] [place] Urine Protein/Creatinine Ratio 118 mg/g{Cre} Normal 0-200 [facility] Comment on above: Order Comment: Reaso n for Exam Chronic kidney disease, stage III (moderate);Disorders of fl Result Comment: PERF ORMED BY: [place] [address] PATHOLOGIST PATTERN PUNCHER MEERA GRIFFITHS M.D. Performed By: #### P ROCRERAT #### [facility] [address] [place] [address] Protein [Mass/volume] in Uri neOrdered By: Anila Jasmine on 04-30-2023 Protein (U) [Mass/Vol] 4 mg/dL 0-9 [facility] RBC Auto (Bld) [#/Vol]Ordere d By: Anila Jasmine on 04-30-2023 RBC (Bld) [#/Vol] 4.01 10*6/uL 3.60-5.00 [facility] Renal Function Panelon 04-30 Albumin [Mass/Vol] 3.8 g/dL Normal 3.5-5.7 [facility] Comment on above: Order Comment: Reaso n for Exam Chronic kidney disease, stage III (moderate);Disorders of fl Performed By: #### U FERNANDO, RENAL, MG, [id number] #### [address] Anion gap [Moles/Vol] 12.5 mmol/L Normal 6.0-15.0 [facility] Comment on above: Order Comment: Reaso n for Exam Chronic kidney disease, stage III (moderate);Disorders of fl Performed By: #### U FERNANDO, RENAL, MG, [id number] #### [facility] [address] [place] [address] [place] Calcium [Mass/Vol] 9.1 mg/dL Normal 8.6-10.3 [facility] Comment on above: Order Comment: Reaso n for Exam Chronic kidney disease, stage III (moderate);Disorders of fl Performed By: #### U FERNANDO, RENAL, MG, [id number] #### [facility] [address] [place] [address] [place] Chloride [Moles/Vol] 102 mmol/L Normal 98-107 [facility] Comment on above: Order Comment: Reaso n for Exam Chronic kidney disease, stage III (moderate);Disorders of fl Performed By: #### U FERNANDO, RENAL, MG, [id number] #### [facility] [address] [place] [address] [place] CO2 [Moles/Vol] 31.5 mmol/L High 21.0-31.0 [facility] Comment on above: Order Comment: Reaso n for Exam Chronic kidney disease, stage III (moderate);Disorders of fl Performed By: #### U FERNANDO, RENAL, MG, [id number] #### [facility] [address] Creatinine [Mass/Vol] 1.53 mg/dL High 0.60-1.20 [facility] Comment on above: Order Comment: Reaso n for Exam Chronic kidney disease, stage III (moderate);Disorders of fl Performed By: #### U FERNANDO, RENAL, MG, [id number] #### [facility] [address] [place] [address] [place] GFR/1.73 sq M.predicted MDRD (S/P/Bld) [Vol rate/Area] 40.189 mL/min/{1.73_m2} Normal [facility] Comment on above: Order Comment: Reaso n for Exam Chronic kidney disease, stage III (moderate);Disorders of fl Performed By: #### U FERNANDO, RENAL, MG, [id number] #### [facility] [address] [place] [id number] [place] Glucose [Mass/Vol] 244 mg/dL High 70-100 [facility] Comment on above: Order Comment: Reaso n for Exam Chronic kidney disease, stage III (moderate);Disorders of fl Result Comment: [place] Glucose Reference Range is dependent on time and content of last meal. Glucose of more than 200 mg/dL in a nonstressed, ambulatory subject supports the diagnosis of Diabetes Mellitus. ADA recommended reference range Performed By: #### U FERNANDO, RENAL, MG, [id number] #### [facility] [address] Phosphate [Mass/Vol] 4.1 mg/dL Normal 2.5-4.5 [facility] Comment on above: Order Comment: Reaso n for Exam Chronic kidney disease, stage III (moderate);Disorders of fl Performed By: #### U FERNANDO, RENAL, MG, [id number] #### [facility] [address] [place] [address] Potassium [Moles/Vol] 4.0 mmol/L Normal 3.5-5.1 [facility] Comment on above: Order Comment: Reaso n for Exam Chronic kidney disease, stage III (moderate);Disorders of fl Performed By: #### U FERNANDO, RENAL, MG, [id number] #### [address] Sodium [Moles/Vol] 142 mmol/L Normal 136-145 [facility] Comment on above: Order Comment: Reaso n for Exam Chronic kidney disease, stage III (moderate);Disorders of fl Performed By: #### U FERNANDO, RENAL, MG, [id number] #### [address] Urea nitrogen [Mass/Vol] 46 mg/dL High 7-25 [facility] Comment on above: Order Comment: Reaso n for Exam Chronic kidney disease, stage III (moderate);Disorders of fl Performed By: #### U FERNANDO, RENAL, MG, [id number] #### [address] Serum or plasma anion gap de terminationOrdered By: Anila Granados on 04-30-2023 Anion gap [Moles/Vol] 12.5 mmol/L 6.0-15.0 [facility] Sodium [Moles/volume] in Ser um or PlasmaOrdered By: Anila Granados on 04-30-2023 Sodium [Moles/Vol] 142 mmol/L 136-145 [facility] Specific gravity Auto test s trip (U) [Rel density]Ordered By: Anila Granados on 04-30-2023 Specific gravity (U) [Rel density] 1.010 1.001-1.030 [facility] Squamous epithelial cells de tection in urine sediment by light microscopyOrdered By: Anila Granados on 04-30-2023 Epithelial cells.squamous LM Ql (Urine sed) 0-1 [HPF] 0-2 [facility] Urate [Mass/volume] in Serum or PlasmaOrdered By: Anila Granados on 04-30-2023 Urate [Mass/Vol] 5.8 mg/dL 2.3-6.6 [facility] Urea nitrogen [Mass/volume] in Serum or PlasmaOrdered By: Anila Granados on 04-30-2023 Urea nitrogen [Mass/Vol] 46 mg/dL 7-25 [facility] Uric Acidon 04-30-2023 Urate [Mass/Vol] 5.8 mg/dL Normal 2.3-6.6 [facility] Comment on above: Order Comment: Reaso n for Exam Chronic kidney disease, stage III (moderate);Disorders of fl Performed By: #### U FERNANDO, RENAL, MG, [id number] #### [facility] [address] Urine bacteria detection by automated methodOrdered By: Anila Granados on 04-30-2023 Bacteria Auto Ql (U) None seen None Seen [facility] Urine clarity by refractomet ry automatedOrdered By: Anila Granados on 04-30-2023 Clarity Refractometry automated (U) Clear Clear [facility] Urine glucose measurement by automated test strip (mass/volume)Ordered By: Anila Granados on 04-30-2023 Glucose Auto test strip (U) [Mass/Vol] Normal mg/dL Normal [facility] Urine hemoglobin detection b y automated test stripOrdered By: Anila Granados on 04-30-2023 Hemoglobin Auto test strip Ql (U) Negative Negative [facility] Urine leukocyte esterase det ection by automated test stripOrdered By: Anila Granados on 04-30-2023 Leukocyte esterase Auto test strip Ql (U) 1+ Negative [facility] Urine protein/creatinine rat ioOrdered By: Anila Granados on 04-30-2023 Protein/Creatinine (U) [Ratio] 118 mg/g{Cre} 0-200 [facility] Urobilinogen Auto test strip (U) [Mass/Vol]Ordered By: Anila Granados on 04-30-2023 Urobilinogen (U) [Mass/Vol] Normal mg/dL Normal [facility] Vitamin D 25 Hydroxy Totalon 04-30-2023 Vitamin D 25 Hydroxy Total 68.6 ng/mL Normal 30-100 [facility] Comment on above: Order Comment: Reaso n for Exam Chronic kidney disease, stage III (moderate);Disorders of fl Result Comment: GAYATRI MIN D STATUS 25(OH)VITAMIN D RANGE (ng/mL) Deficient <20 Insufficient 20 to <30 Sufficient 30 to 100 Reference: Milo Braxton, Adrián TELLEZ, et al. Evaluation,treatment, and prevention of vitamin D deficiency; an Endocrine Society clinical practice guideline. JCEM. 2010; 96(7):1911-30. PERFORMED BY: [place] [address] PATHOLOGIST PATTERN PUNCHER MEERA GRIFFITHS M.D. Performed By: #### U FERNANDO, RENAL, MG, [id number] #### [address] Vitamin D+Metabolites [Mass/ volume] in Serum or PlasmaOrdered By: Anila Granados on 04-30-2023 Vitamin D+Metabolites [Mass/Vol] 68.6 ng/mL 30-100 [facility] Comment on above: VITAMIN D STATUS 25( OH)VITAMIN D RANGE (ng/mL) Deficient <20 Insufficient 20 to <30Sufficient 30 to 100Reference: Milo Braxton, Adrián TELLEZ, et al. Evaluation,treatment, and prevention of vitamin D deficiency; an Endocrine Society clinical practice guideline. JCEM. 2010; 96(7):1911-30. pH Auto test strip (U)Ordere d By: Anila Granados on 04-30-2023 pH (U) 6.5 [pH] 5.0-9.0 [facility] XR knee LT 2Von 09-23-2022 XR knee LT 2V [facility] [place] [address] [place] [address] XRay Report Signed Patient: Mary Jane Schaeffer MR#: [id number] : 1970 Acct:[id number] Age/Sex: 52 / F ADM Date: 09/23/22 [place] [facility] [place] Type[place] [facility] [address] Attending Dr: Arthur Moy MD Copies to: [...] Kim Coleman M.D.09/23/2022 5:10 PM Dictation Location: [place] [address] Transcribed By: BRITT 09/23/221709 Dictated By: Kim Coleman MD 09/23/22 1708 Signed By: 09/23/22 1710 Normal [facility] PTH INTACTon 08-14-2022 PTH, Intact 12 pg/mL Critically low 15-65 [facility] Comment on above: Performed By: #### I NSULIN #### [facility] [address] [place] [address] [address] Jose Mckinney HEMOGRAM AND PLATELon 2022 Hematocrit (Bld) [Volume fraction] 38.7 % Normal 36.0-48.0 [facility] Comment on above: Performed By: #### U RTPCR #### [facility] [address] [place] [address] Dr. Jose Mckinney Hemoglobin (Bld) [Mass/Vol] 12.7 g/dL Normal 12.0-16.0 [facility] Comment on above: Performed By: #### U RTPCR #### [facility] [address] [place] [address] Dr. Jose Mckinney MCH (RBC) [Entitic mass] 30.5 pg Normal 26.7-34.0 [facility] Comment on above: Performed By: #### U RTPCR #### [facility] [address] [place] [address] Dr. Jose Mckinney MCHC (RBC) [Mass/Vol] 32.8 g/dL Normal 29.9-35.2 [facility] Comment on above: Performed By: #### U RTPCR #### [facility] [address] [place] [address] Dr. Jose Mckinney MCV (RBC) [Entitic vol] 92.8 fL Normal 81.0-99.0 [facility] Comment on above: Performed By: #### U RTPCR #### [facility] [address] [place] [address] Dr. Jose Mckinney PLT 223 103/ul Normal 150-450 [facility] Comment on above: Performed By: #### U RTPCR #### [facility] [address] [place] [address] Dr. Jose Mckinney RBC 4.17 106/ul Critically low 4.20-5.40 [facility] Comment on above: Performed By: #### U RTPCR #### [facility] [address] [place] [address] Dr. Jose Mckinney WBC 7.0 103/ul Normal 4.0-11.0 [facility] Comment on above: Performed By: #### U RTPCR #### [facility] [address] [place] [address] Dr. Jose Mckinney MAGNESIUMon 08-13-2022 Magnesium [Mass/Vol] 1.9 mg/dL Normal 1.8-2.4 [facility] Comment on above: Performed By: #### U FERNANDO, RENAL, MG #### [facility] [address] [place] [address] [address] Jose Mckinney RENAL FUNCTION PANELon 08-13 Albumin [Mass/Vol] 3.6 g/dL Normal 3.4-5.0 [facility] Comment on above: Performed By: #### U FERNANDO, RENAL, MG #### [facility] [address] [place] [address] Dr. Jose Mckinney Calcium [Mass/Vol] 9.3 mg/dL Normal 8.5-10.1 [facility] Comment on above: Performed By: #### U FERNANDO, RENAL, MG #### [facility] [address] [place] [address] Dr. Jose Mckinney Chloride [Moles/Vol] 104 mmol/L Normal 98-107 [facility] Comment on above: Performed By: #### U FERNANDO, RENAL, MG #### [facility] [address] [place] [address] Dr. Jose Mckinney CO2 [Moles/Vol] 28.3 mmol/L Normal 21.0-32.0 [facility] Comment on above: Performed By: #### U FERNANDO, RENAL, MG #### [facility] [address] [place] [address] Dr. Jose Mckinney Creatinine [Mass/Vol] 1.34 mg/dL Critically high 0.55-1.02 [facility] Comment on above: Performed By: #### U FERNANDO, RENAL, MG #### [facility] [address] [place] [address] Dr. Jose Mckinney EGFR-AF MARSHALLESE 50 mL/min/1.73m2 Critically low >=60 [facility] Comment on above: Performed By: #### U FERNANDO, RENAL, MG #### [facility] [address] [place] [address] Dr. Jose Mckinney EGFR-NON AF MARSHALLESE 41 mL/min/1.73m2 Critically low >=60 [facility] Comment on above: Performed By: #### U FERNANDO, RENAL, MG #### [facility] [address] [place] [address] [address] Jose Mckinney Glucose [Mass/Vol] 226 mg/dL Critically high 74-106 [facility] Comment on above: Performed By: #### U FERNANDO, RENAL, MG #### [facility] [address] [place] [address] [address] Jose Mckinney Phosphate [Mass/Vol] 4.6 mg/dL Normal 2.6-4.7 [facility] Comment on above: Performed By: #### U FERNANDO, RENAL, MG #### [facility] [address] [place] [address] Dr. Jose Mckinney Potassium [Moles/Vol] 4.4 mmol/L Normal 3.5-5.1 [facility] Comment on above: Performed By: #### U FERNANDO, RENAL, MG #### [facility] [address] [place] [address] Dr. Jose Mckinney Sodium [Moles/Vol] 138 mmol/L Normal 136-145 [facility] Comment on above: Performed By: #### U FERNANDO, RENAL, MG #### [facility] [address] [place] [address] [address] Jose Mckinney Urea nitrogen [Mass/Vol] 27.0 mg/dL Critically high 7.0-18 .0 [facility] Comment on above: Performed By: #### U FERNANDO, RENAL, MG #### [facility] [address] [place] [address] [address] Jose Mckinney UA RANDOM W/MICROSCOPICon BACTERIA NONE SEEN Normal NONE SEEN [facility] Comment on above: Performed By: #### U AMIC #### [facility] [address] [place] [address] [address] Jose Mckinney Bilirubin Ql (U) Negative Normal NEGATIVE [facility] Comment on above: Performed By: #### U AMIC #### [facility] [address] [place] [address] Dr. Jose Mckinney CAST NONE SEEN Normal NONE SEEN [facility] Comment on above: Performed By: #### U AMIC #### [facility] [address] [place] [address] [address] Jose Mckinney Clarity (U) CLEAR Normal CLEAR [facility] Comment on above: Performed By: #### U AMIC #### [facility] [address] [place] [address] Dr. Jose Mckinney Color (U) YELLOW Normal YELLOW [facility] Comment on above: Performed By: #### U AMIC #### [facility] [address] [place] [address] [address] Jose Mckinney Crystals LM Nom (Urine sed) NONE SEEN Normal NONE SEEN [facility] Comment on above: Performed By: #### U AMIC #### [facility] [address] [place] [address] Dr. Jose Mckinney Epithelial cells LM Ql (Urine sed) NONE SEEN Normal NONE SEEN /RARE [facility] Comment on above: Performed By: #### U AMIC #### [facility] [address] [place] [address] Dr. Jose Mckinney Glucose Ql (U) 250 mg/dl Abnormal NEGATIVE [facility] Comment on above: Performed By: #### U AMIC #### [facility] [address] [place] [address] Dr. Jose Mckinney Hemoglobin Ql (U) Negative Normal NEGATIVE [facility] Comment on above: Performed By: #### U AMIC #### [facility] [address] [place] [address] Dr. Jose Mckinney Ketones Ql (U) Negative Normal NEGATIVE [facility] Comment on above: Performed By: #### U AMIC #### [facility] [address] [place] [address] Dr. Jose Mckinney LEUKOCYTES Negative Normal NEGATIVE [facility] Comment on above: Performed By: #### U AMIC #### [facility] [address] [place] [address] Dr. Jose Mckinney MUCOUS NONE SEEN Normal NONE SEEN [facility] Comment on above: Performed By: #### U AMIC #### [facility] [address] [place] [address] Dr. Jose Mckinney Nitrite Ql (U) Negative Normal NEGATIVE [facility] Comment on above: Performed By: #### U AMIC #### [facility] [address] [place] [address] Dr. Jose Mckinney pH (U) 6.5 [pH] Normal 5-9 [facility] Comment on above: Performed By: #### U AMIC #### [facility] [address] [place] [address] [address] Jose Mckinney RBC 0-2 Normal 0-2 [facility] Comment on above: Performed By: #### U AMIC #### [facility] [address] [place] [address] Dr. Jose Mckinney SPEC GRAVITY 1.020 Normal 1.005-<=1.02 5 [facility] Comment on above: Performed By: #### U AMIC #### [facility] [address] [place] [address] Dr. Jose Mckinney UA PROTEIN Negative Normal NEGATIVE/ TRACE [facility] Comment on above: Performed By: #### U AMIC #### [facility] [address] [place] [address] Dr. Jose Mckinney Urobilinogen Qn (U) 0.2 {Betsy'U}/dL Normal 0.2 - 1. 0 [facility] Comment on above: Performed By: #### U AMIC #### [facility] [address] [place] [address] Dr. Jose Mckinney WBC NONE SEEN Normal NONE SEEN [facility] Comment on above: Performed By: #### U AMIC #### [facility] [address] [place] [address] Dr. Jose Mckinney URIC ACID SERUMon 08-13-2022 Urate [Mass/Vol] 4.1 mg/dL Normal 2.6-6.0 [facility] Comment on above: Performed By: #### U FERNANDO, RENAL, MG #### [facility] [address] [place] [address] Dr. Jose Mckinney URINE T PROTEIN CREAT RATIOo n 08-13-2022 Protein (U) [Mass/Vol] 13.5 mg/dL Critically high <=12.0 [facility] Comment on above: Performed By: #### U RTPCR #### [facility] [address] [place] [address] Dr. Jose Mckinney UR PROT CREAT RAT 0.16 Normal [facility] Comment on above: Performed By: #### U RTPCR #### [facility] [address] [place] [address] Dr. Jose Mckinney URINE CREAT 83.00 mg/dL Normal 20.00-300.00 [facility] Comment on above: Performed By: #### U RTPCR #### [facility] [address] [place] [address] Dr. Jose Mckinney VITAMIN D 25 OHon 08-13-2022 VIT D 25-OH 54.4 ng/mL Normal [facility] Comment on above: Performed By: #### C BC #### [facility] [address] [place] [address] Dr. Jose Mckinney VIT D RANGES SEE BELOW Normal [facility] Comment on above: Result Comment: <20 ng/mL Vit D deficient 20 - <30 ng/mL Vit D insufficient 30 - 100 ng/mL Vit D sufficient >100 ng/mL Potential Toxicity Performed By: #### C BC #### [facility] [address] [place] [address] Dr. Jose Mckinney [facility]02 SARS-CoV-2 (COVID-19) RNA CHILO+probe Ql (Unsp spec) Not detected Normal NOT DETECTED [facility] Comment on above: Result Comment: This test is not yet approved or cleared by the [place] FDA. When there are no FDA-approved or cleared tests available, and other criteria are met, FDA can make tests available under an emergency access mechanism called an Emergency Use Authorization (EUA). The EUA for this test is supported by the Motor Generator Set Operator of Health and Human Service's (HHS's) declaration [...] SARS-CoV-2. Performed By: #### C BC #### [facility] [address] [place] [address] Dr. Jose Mckinney INFLUENZA A AND B AGon 05-13 INFLUANE SEE BELOW Normal [facility] Comment on above: Result Comment: Nega tive for Flu A protein angiten. Infection due to Flu A cannot be ruled out. Flu A angiten in the sample may be below the detection limit of the test. Performed By: #### C BC #### [facility] [address] [place] [address] Dr. [facility] Normal [facility] Comment on above: Result Comment: Nega tive for Flu B protein antigen. Infection due to Flu B cannot be ruled out. Flu B antigen in the sample may be below the detection limit of the test. Performed By: #### C BC #### [facility] [address] [place] [address] Dr. Jose Mckinney INFLUENZA A AG Negative Normal NEGATIVE SEE COMMENT [facility] Comment on above: Performed By: #### C BC #### [facility] [address] [place] [address] Dr. Jose Mckinney INFLUENZA B AG Negative Normal NEGATIVE SEE COMMENT [facility] Comment on above: Performed By: #### C BC #### [facility] [address] [place] [address] Dr. Jose Mckinney INTERNAL CONTROLS Within Normal Limits Normal Wi thin Normal Limits [facility] Comment on above: Performed By: #### C BC #### [facility] [address] [place] [address] Dr. Jose Mckinney INSULINon 02-07-2022 Insulin 191.0 uIU/mL Critically high 2.6-24.9 [facility] Comment on above: Performed By: #### I NSULIN #### [facility] [address] [place], [place] [address] Dr. Jose Mckinney PTH INTACTon 02-07-2022 PTH, Intact 13 pg/mL Critically low 15-65 [facility] Comment on above: Performed By: #### C BC #### [facility] [address] [address] [address] Jose Mckinney T4, T3U, FTI [facility]on 02-07 Free Thyroxine Index 2.3 Normal 1.2-4.9 [facility] Comment on above: Performed By: #### C BC #### [facility] [address] [address] [address] Jose Mckinney T3 Uptake 23 % Critically low 24-39 [facility] Comment on above: Performed By: #### C BC #### [facility] [address] [address] [address] Jose Mckinney T4 [Mass/Vol] 10.2 ug/dL Normal 4.5-12.0 [facility] Comment on above: Performed By: #### C BC #### [facility] [address] [address] [address] Jose Mckinney VIT D 25-OH [facility] 2021 Vitamin D, 25-Hydroxy 43.3 ng/mL Normal 30.0-100.0 [facility] Comment on above: Result Comment: Gayatri min D deficiency has been defined by the [place] of [employer] and an Endocrine Society practice guideline as a level of serum 25-OH vitamin D less than 20 ng/mL (1,2). The Endocrine Society went on to further define vitamin D insufficiency as a level between 21 and 29 ng/mL (2). 1. IOM ([place] of [employer]). 2010. Dietary reference intakes for calcium and D. [place]: The National Academies Press. 2. Amilcar JIMÉNEZ, [place], Adrián TELLEZ, et al. Evaluation, treatment, and prevention of vitamin D deficiency: an Endocrine Society clinical practice guideline. JCEM. 2010; 96(7):1911-30. Performed By: #### C BC #### [facility] [address] [address] [address] Jose Mckinney CBC AUTO DIFFon 02-06-2022 BASO # 0.0 103/ul Normal 0.0-0.1 [facility] Comment on above: Performed By: #### U RTPCR #### [facility] [address] [place] [address] Dr. Jose Mckinney Basophils/100 WBC (Bld) 0.5 % Normal 0.2-2.0 [facility] Comment on above: Performed By: #### U RTPCR #### [facility] [address] [place] [address] Dr. Jose Mckinney EO # 0.5 103/ul Normal 0.0-0.7 [facility] Comment on above: Performed By: #### U RTPCR #### [facility] [address] [place] [address] Dr. Jose Mckinney Eosinophils/100 WBC (Bld) 8.0 % Critically high 0.9-7.0 [facility] Comment on above: Performed By: #### U RTPCR #### [facility] [address] [place] [address] Dr. Jose Mckinney Erythrocyte distribution width (RBC) [Ratio] 13.6 % Normal 11.0-15.0 [facility] Comment on above: Performed By: #### U RTPCR #### [facility] [address] [place] [address] Dr. Jose Mckinney Hematocrit (Bld) [Volume fraction] 42.5 % Normal 36.0-48.0 [facility] Comment on above: Performed By: #### U RTPCR #### [facility] [address] [place] [address] Dr. Jose Mckinney Hemoglobin (Bld) [Mass/Vol] 13.8 g/dL Normal 12.0-16.0 [facility] Comment on above: Performed By: #### U RTPCR #### [facility] [address] [place] [address] Dr. Jose Mckinney IG # 0.02 10e3/ul Normal 0.00-0.03 [facility] Comment on above: Performed By: #### U RTPCR #### [facility] [address] [place] [address] Dr. Jose Mckinney IG % 0.3 % Normal 0.0-0.5 [facility] Comment on above: Performed By: #### U RTPCR #### [facility] [address] [place] [address] Dr. Jose Mckinney LYMPH # 1.5 103/ul Normal 1.2-3.8 [facility] Comment on above: Performed By: #### U RTPCR #### [facility] [address] [place] [address] Dr. Jose Mckinney Lymphocytes/100 WBC (Bld) 25.3 % Normal 20.5-60.0 [facility] Comment on above: Performed By: #### U RTPCR #### [facility] [address] [place] [address] Dr. Jose Mckinney MANUAL DIFF REQ NO Normal [facility] Comment on above: Performed By: #### U RTPCR #### [facility] [address] [place] [address] Dr. Jose Mckinney MCH (RBC) [Entitic mass] 30.1 pg Normal 26.7-34.0 [facility] Comment on above: Performed By: #### U RTPCR #### [facility] [address] [place] [address] Dr. Jose Mckinney MCHC (RBC) [Mass/Vol] 32.5 g/dL Normal 29.9-35.2 [facility] Comment on above: Performed By: #### U RTPCR #### [facility] [address] [place] [address] Dr. Jose Mckinney MCV (RBC) [Entitic vol] 92.6 fL Normal 81.0-99.0 [facility] Comment on above: Performed By: #### U RTPCR #### [facility] [address] [place] [address] Dr. Jose Mckinney MONO # 0.4 103/ul Normal 0.3-0.8 [facility] Comment on above: Performed By: #### U RTPCR #### [facility] [address] [address] [address] Jose Mckinney Monocytes/100 WBC (Bld) 6.4 % Normal 1.7-12.0 [facility] Comment on above: Performed By: #### U RTPCR #### [facility] [address] [place] [address] Dr. Jose Mckinney NEUT # 3.6 103/ul Normal 1.4-6.5 [facility] Comment on above: Performed By: #### U RTPCR #### [facility] [address] [place] [address] Dr. Jose Mckinney Neutrophils/100 WBC (Bld) 59.5 % Normal 43.0-75.0 [facility] Comment on above: Performed By: #### U RTPCR #### [facility] [address] [place] [address] Dr. Jose Mckinney Platelet mean volume (Bld) [Entitic vol] 11.8 fL Normal 9.5-13.5 [facility] Comment on above: Performed By: #### U RTPCR #### [facility] [address] [place] [address] Dr. Jose Mckinney PLT 175 103/ul Normal 150-450 [facility] Comment on above: Performed By: #### U RTPCR #### [facility] [address] [place] [address] Dr. Jose Mckinney RBC 4.59 106/ul Normal 4.20-5.40 [facility] Comment on above: Performed By: #### U RTPCR #### [facility] [address] [place] [address] Dr. Jose Mckinney WBC 6.1 103/ul Normal 4.0-11.0 [facility] Comment on above: Performed By: #### U RTPCR #### [facility] [address] [place] [address] Dr. Jose Mckinney GLYCOHEMOGLOBIN A1Con 2021 ADA RECOMMENDATION SEE BELOW Normal [facility] Comment on above: Result Comment: ADA RECOMMENDED LIMIT 4.0 - 6.0 [facility] THERAPEUTIC TARGET < 7.0 ACTION SUGGESTED > 7.0 Performed By: #### U RTPCR #### [facility] [address] [address] [address] Jose Mckinney Glucose [Mass/Vol] 209 mg/dL Normal [facility] Comment on above: Performed By: #### U RTPCR #### [facility] [address] [address] [address] Jose Mckinney HbA1c (Bld) [Mass fraction] 8.9 % Critically high 4.5-6.2 [facility] Comment on above: Performed By: #### U RTPCR #### [facility] [address] [address] [address] Jose Mckinney IRONon 02-06-2022 Iron [Mass/Vol] 55.0 ug/dL Normal 50.0-170.0 [facility] Comment on above: Performed By: #### C BC #### [facility] [address] [place] [address] Dr. Jose Mckinney LIPID PROFILEon 02-06-2022 CHOL-HDL RATIO NORM SEE BELOW Normal [facility] Comment on above: Result Comment: 3.3 - 4.4 LOW RISK 4.4 - 7.1 AVERAGE RISK 7.1 - 11.0 MODERATE RISK >11.0 HIGH RISK Performed By: #### T SH, CMP, LIPID #### [facility] [address] [place] [address] Dr. Jose Mckinney Cholesterol [Mass/Vol] 215 mg/dL Critically high <=200 [facility] Comment on above: Performed By: #### T SH, CMP, LIPID #### [facility] [address] [place] [address] Dr. Jose Mckinney Cholesterol in HDL [Mass/Vol] 32 mg/dL Critically low 40-60 [facility] Comment on above: Performed By: #### T SH, CMP, LIPID #### [facility] [address] [address] [address] Jose Mckinney Cholesterol in LDL [Mass/Vol] 118.4 mg/dL Normal [facility] Comment on above: Performed By: #### T SH, CMP, LIPID #### [facility] [address] [address] [address] Jose Mckinney Cholesterol.total/Choles terol in HDL [Mass ratio] 6.7 {ratio} Normal [facility] Comment on above: Performed By: #### T MIGUEL ÁNGEL CMP, LIPID #### [facility] [address] [address] [address] Jose Mckinney HDL NORMAL > or = 60 mg/dl - LOW CARDIOVASCULAR RISK <40 mg/dl - HIGH CARDIOVASCULAR RISK Normal [facility] Comment on above: Performed By: #### T MIGUEL ÁNGEL CMP, LIPID #### [facility] [address] [address] [address] Jose Mckinney LDL CALC NORMAL SEE BELOW Normal [facility] Comment on above: Result Comment: <100 mg/dl OPTIMAL 100 - 129 mg/dl NEAR OR ABOVE OPTIMAL 130 - 159 mg/dl BORDERLINE HIGH 160 - 189 mg/dl HIGH >190 mg/dl VERY HIGH Performed By: #### T MIGUEL ÁNGEL CMP, LIPID #### [facility] [address] [address] [address] Jose Mckinney Triglyceride [Mass/Vol] 323 mg/dL Critically high <=150 [facility] Comment on above: Performed By: #### T MIGUEL ÁNGEL CMP, LIPID #### [facility] [address] [address] [address] Jose Mckinney VLDL CALC 64.6 mg/dL Normal [facility] Comment on above: Performed By: #### T MIGUEL ÁNGEL CMP, LIPID #### [facility] [address] [address] [address] Jose Mckinney MAGNESIUMon 02-06-2022 Magnesium [Mass/Vol] 1.8 mg/dL Normal 1.8-2.4 [facility] Comment on above: Performed By: #### U RTPCR #### [facility] [address] [address] [address] Jose Mckinney PHOSPHORUSon 02-06-2022 Phosphate [Mass/Vol] 4.1 mg/dL Normal 2.6-4.7 [facility] Comment on above: Performed By: #### U RTPCR #### [facility] [address] [address] [address] Jose Mckinney PROF 14(COMP METB)on 022 Albumin [Mass/Vol] 3.6 g/dL Normal 3.4-5.0 [facility] Comment on above: Performed By: #### T SH, CMP, LIPID #### [facility] [address] [address] [address] Jose Mckinney Albumin/Globulin [Mass ratio] 0.9 {ratio} Normal [facility] Comment on above: Performed By: #### T SH, CMP, LIPID #### [facility] [address] [address] [address] Jose Mckinney ALP [Catalytic activity/Vol] 70 U/L Normal 46-116 [facility] Comment on above: Performed By: #### T SH, CMP, LIPID #### [facility] [address] [address] [address] Jose Mckinney ALT [Catalytic activity/Vol] 38 U/L Normal 14-59 [facility] Comment on above: Performed By: #### T SH, CMP, LIPID #### [facility] [address] [address] [address] Jose Mckinney Anion gap [Moles/Vol] 11.9 mmol/L Normal [facility] Comment on above: Performed By: #### T SH, CMP, LIPID #### [facility] [address] [address] [address] Jose Mckinney AST [Catalytic activity/Vol] 19 U/L Normal 15-37 [facility] Comment on above: Performed By: #### T SH, CMP, LIPID #### [facility] [address] [address] [address] Jose Mckinney Bilirubin [Mass/Vol] 0.3 mg/dL Normal 0.2-1.0 [facility] Comment on above: Performed By: #### T SH, CMP, LIPID #### [facility] [address] [address] [address] Jose Mckinney Calcium [Mass/Vol] 9.3 mg/dL Normal 8.5-10.1 [facility] Comment on above: Performed By: #### T SH, CMP, LIPID #### [facility] [address] [address] [address] Jose Mckinney Chloride [Moles/Vol] 104 mmol/L Normal 98-107 [facility] Comment on above: Performed By: #### T SH, CMP, LIPID #### [facility] [address] [address] [address] Jose Mckinney CO2 [Moles/Vol] 29.1 mmol/L Normal 21.0-32.0 [facility] Comment on above: Performed By: #### T SH, CMP, LIPID #### [facility] [address] [place] [address] Dr. Jose Mckinney Creatinine [Mass/Vol] 1.31 mg/dL Critically high 0.55-1.02 [facility] Comment on above: Performed By: #### T SH, CMP, LIPID #### [facility] [address] [place] [address] Dr. Jose Mckinney EGFR-AF MARSHALLESE 51 mL/min/1.73m2 Critically low >=60 [facility] Comment on above: Performed By: #### T SH, CMP, LIPID #### [facility] [address] [place] [address] Dr. Jose Mckinney EGFR-NON AF MARSHALLESE 42 mL/min/1.73m2 Critically low >=60 [facility] Comment on above: Performed By: #### T SH, CMP, LIPID #### [facility] [address] [place] [address] Dr. Jose Mckinney Globulin (S) [Mass/Vol] 3.9 g/dL Normal [facility] Comment on above: Performed By: #### T SH, CMP, LIPID #### [facility] [address] [place] [address] Dr. Jose Mckinney Glucose [Mass/Vol] 185 mg/dL Critically high 74-106 [facility] Comment on above: Performed By: #### T SH, CMP, LIPID #### [facility] [address] [place] [address] Dr. Jose Mckinney Potassium [Moles/Vol] 4.0 mmol/L Normal 3.5-5.1 [facility] Comment on above: Performed By: #### T SH, CMP, LIPID #### [facility] [address] [address] [address] Jose Mckinney Protein [Mass/Vol] 7.5 g/dL Normal 6.4-8.2 [facility] Comment on above: Performed By: #### T SH, CMP, LIPID #### [facility] [address] [address] [address] Jose Mckinney Sodium [Moles/Vol] 141 mmol/L Normal 136-145 [facility] Comment on above: Performed By: #### T MIGUEL ÁNGEL, CMP, LIPID #### [facility] [address] [place] [address] Dr. Jose Mckinney Urea nitrogen [Mass/Vol] 20.0 mg/dL Critically high 7.0-18 .0 [facility] Comment on above: Performed By: #### T MIGUEL ÁNGEL, CMP, LIPID #### [facility] [address] [place] [address] Dr. Jose Mckinney Urea nitrogen/Creatinine [Mass ratio] 15.3 mg/mg Normal [facility] Comment on above: Performed By: #### T MIGUEL ÁNGEL, CMP, LIPID #### [facility] [address] [place] [address] Dr. Jose Mckinney TSHon 02-06-2022 TSH 2.011 uIU/mL Normal 0.358-3.740 [facility] Comment on above: Performed By: #### T SH, CMP, LIPID #### [facility] [address] [place] [address] Dr. Jose Mckinney UA RANDOM W/MICROSCOPICon BACTERIA NONE SEEN Normal NONE SEEN [facility] Comment on above: Performed By: #### U RTPCR #### [facility] [address] [place] [address] Dr. Jose Mckinney Bilirubin Ql (U) Negative Normal NEGATIVE [facility] Comment on above: Performed By: #### U RTPCR #### [facility] [address] [place] [address] Dr. Jose Mckinney CAST NONE SEEN Normal NONE SEEN [facility] Comment on above: Performed By: #### U RTPCR #### [facility] [address] [place] [address] Dr. Jose Mckinney Clarity (U) CLEAR Normal CLEAR [facility] Comment on above: Performed By: #### U RTPCR #### [facility] [address] [place] [address] Dr. Jose Mckinney Color (U) LT. YELLOW Normal YELLOW [facility] Comment on above: Performed By: #### U RTPCR #### [facility] [address] [place] [address] Dr. Jose Mckinney Crystals LM Nom (Urine sed) NONE SEEN Normal NONE SEEN [facility] Comment on above: Performed By: #### U RTPCR #### [facility] [address] [place] [address] Dr. Jose Mckinney Epithelial cells LM Ql (Urine sed) RARE Normal NONE SEEN /RARE [facility] Comment on above: Performed By: #### U RTPCR #### [facility] [address] [place] [address] Dr. Jose Mckinney Glucose Ql (U) Negative Normal NEGATIVE [facility] Comment on above: Performed By: #### U RTPCR #### [facility] [address] [place] [address] Dr. Jose Mckinney Hemoglobin Ql (U) Negative Normal NEGATIVE [facility] Comment on above: Performed By: #### U RTPCR #### [facility] [address] [place] [address] Dr. Jose Mckinney Ketones Ql (U) Negative Normal NEGATIVE [facility] Comment on above: Performed By: #### U RTPCR #### [facility] [address] [place] [address] Dr. Jose Mckinney LEUKOCYTES Negative Normal NEGATIVE [facility] Comment on above: Performed By: #### U RTPCR #### [facility] [address] [place] [address] Dr. Jose Mckinney MUCOUS NONE SEEN Normal NONE SEEN [facility] Comment on above: Performed By: #### U RTPCR #### [facility] [address] [place] [address] Dr. Jose Mckinney Nitrite Ql (U) Negative Normal NEGATIVE [facility] Comment on above: Performed By: #### U RTPCR #### [facility] [address] [place] [address] Dr. Jose Mckinney pH (U) 6.0 [pH] Normal 5-9 [facility] Comment on above: Performed By: #### U RTPCR #### [facility] [address] [place] [address] Dr. Jose Mckinney RBC 0-2 Normal 0-2 [facility] Comment on above: Performed By: #### U RTPCR #### [facility] [address] [place] [address] Dr. Jose Mckinney SPEC GRAVITY 1.010 Normal 1.005-<=1.02 5 [facility] Comment on above: Performed By: #### U RTPCR #### [facility] [address] [place] [address] Dr. Jose Mckinney UA PROTEIN Negative Normal NEGATIVE/ TRACE [facility] Comment on above: Performed By: #### U RTPCR #### [facility] [address] [place] [address] Dr. Jose Mckinney Urobilinogen Qn (U) 0.2 {Betsy'U}/dL Normal 0.2 - 1. 0 [facility] Comment on above: Performed By: #### U RTPCR #### [facility] [address] [place] [address] Dr. Jose Mckinney WBC 0-2 Abnormal NONE SEEN [facility] Comment on above: Performed By: #### U RTPCR #### [facility] [address] [place] [address] Dr. Jose Mckinney URIC ACID SERUMon 02-06-2022 Urate [Mass/Vol] 6.7 mg/dL Critically high 2.6-6.0 [facility] Comment on above: Performed By: #### U RTPCR #### [facility] [address] [place] [address] Dr. Jose Mckinney URINE T PROTEIN CREAT RATIOo n 02-06-2022 Protein (U) [Mass/Vol] 6.0 mg/dL Normal <=12.0 [facility] Comment on above: Performed By: #### I NSULIN #### [facility] [address] [place] [address] Dr. Jose Mckinney UR PROT CREAT RAT 0.19 Normal [facility] Comment on above: Performed By: #### I NSULIN #### [facility] [address] [place] [address] Dr. Jose Mckinney URINE CREAT 32.07 mg/dL Normal 20.00-300.00 [facility] Comment on above: Performed By: #### I NSULIN #### [facility] [address] [place] [address] Dr. Jose Mckinney BNPon 09-04-2021 Natriuretic peptide B (Bld) [Mass/Vol] 1096.0 pg/mL Critically high <=900.0 [facility] Comment on above: Performed By: #### U RTPCR #### [facility] [address] [place] [address] Dr. Jose Mckinney CBC AUTO DIFFon 09-04-2021 BASO # 0.0 103/ul Normal 0.0-0.1 [facility] Comment on above: Performed By: #### C BC #### [facility] [address] [place] [address] Dr. Jose Mckinney Basophils/100 WBC (Bld) 0.3 % Normal 0.2-2.0 [facility] Comment on above: Performed By: #### C BC #### [facility] [address] [place] [address] Dr. Jose Mckinney EO # 0.3 103/ul Normal 0.0-0.7 [facility] Comment on above: Performed By: #### C BC #### [facility] [address] [place] [address] Dr. Jose Mckinney Eosinophils/100 WBC (Bld) 2.1 % Normal 0.9-7.0 [facility] Comment on above: Performed By: #### C BC #### [facility] [address] [place] [address] Dr. Jose Mckinney Erythrocyte distribution width (RBC) [Ratio] 13.7 % Normal 11.0-15.0 [facility] Comment on above: Performed By: #### C BC #### [facility] [address] [place] [address] Dr. Jose Mckinney Hematocrit (Bld) [Volume fraction] 40.1 % Normal 36.0-48.0 [facility] Comment on above: Performed By: #### C BC #### [facility] [address] [place] [address] Dr. Jose Mckinney Hemoglobin (Bld) [Mass/Vol] 13.5 g/dL Normal 12.0-16.0 [facility] Comment on above: Performed By: #### C BC #### [facility] [address] [place] [address] Dr. Jose Mckinney IG # 0.48 10e3/ul Critically high 0.00-0.03 [facility] [facility] Comment on above: Performed By: #### C BC #### [facility] [address] [place] [address] Dr. Jose Mckinney IG % 3.7 % Critically high 0.0-0.5 [facility] Comment on above: Performed By: #### C BC #### [facility] [address] [place] [address] Dr. Jose Mckinney LYMPH # 4.2 103/ul Critically high 1.2-3.8 [facility] Comment on above: Performed By: #### C BC #### [facility] [address] [place] [address] Dr. Jose Mckinney Lymphocytes/100 WBC (Bld) 32.5 % Normal 20.5-60.0 [facility] Comment on above: Performed By: #### C BC #### [facility] [address] [place] [address] Dr. Jose Mckinney MANUAL DIFF REQ NO Normal [facility] Comment on above: Performed By: #### C BC #### [facility] [address] [address] [address] Jose Mckinney MCH (RBC) [Entitic mass] 30.7 pg Normal 26.7-34.0 [facility] Comment on above: Performed By: #### C BC #### [facility] [address] [place] [address] Dr. Jose Mckniney MCHC (RBC) [Mass/Vol] 33.7 g/dL Normal 29.9-35.2 [facility] Comment on above: Performed By: #### C BC #### [facility] [address] [place] [address] Dr. Jose Mckinney MCV (RBC) [Entitic vol] 91.1 fL Normal 81.0-99.0 [facility] Comment on above: Performed By: #### C BC #### [facility] [address] [place] [address] Dr. Jose Mckinney MONO # 0.9 103/ul Critically high 0.3-0.8 [facility] Comment on above: Performed By: #### C BC #### [facility] [address] [place] [address] Dr. Jose Mckinney Monocytes/100 WBC (Bld) 7.3 % Normal 1.7-12.0 [facility] Comment on above: Performed By: #### C BC #### [facility] [address] [place] [address] Dr. Jose Mckinney NEUT # 6.9 103/ul Critically high 1.4-6.5 [facility] Comment on above: Performed By: #### C BC #### [facility] [address] [place] [address] Dr. Jose Mckinney Neutrophils/100 WBC (Bld) 54.1 % Normal 43.0-75.0 [facility] Comment on above: Performed By: #### C BC #### [facility] [address] [place] [address] Dr. Jose Mckinney Platelet mean volume (Bld) [Entitic vol] 11.7 fL Normal 9.5-13.5 [facility] Comment on above: Performed By: #### C BC #### [facility] [address] [address] [address] Jose Mckinney PLT 216 103/ul Normal 150-450 [facility] Comment on above: Performed By: #### C BC #### [facility] [address] [place] [address] Dr. Jose Mckinney RBC 4.40 106/ul Normal 4.20-5.40 [facility] Comment on above: Performed By: #### C BC #### [facility] [address] [place] [address] Dr. Jose Mckinney WBC 12.8 103/ul Critically high 4.0-11.0 [facility] Comment on above: Performed By: #### C BC #### [facility] [address] [place] [address] Dr. Jose Mckinney Covid-19 PCR ([facility])on SARS-CoV-2 (COVID-19) RNA CHILO+probe Ql (Unsp spec) Not detected Normal NOT DETECTED [facility] Comment on above: Result Comment: This test is not yet approved or cleared by the [place] FDA. When there are no FDA-approved or cleared tests available, and other criteria are met, FDA can make tests available under an emergency access mechanism called an Emergency Use Authorization (EUA). The EUA for this test is supported by the Motor Generator Set Operator of Health and Human Service's (HHS's) declaration [...] SARS-CoV-2. Performed By: #### I NSULIN #### [facility] [address] [place] [address] Dr. Jose cMkinney D-DIMERon 09-04-2021 D-DIMER 0.33 mg/L FEU Normal 0.19-0.50 [facility] Comment on above: Performed By: #### I NSULIN #### [facility] [address] [place] [address] Dr. Jose Mckinney D-DIMER COMMENTS SEE BELOW Normal [facility] Comment on above: Result Comment: Incr [...] hospitalization. Performed By: #### I NSULIN #### [facility] [address] [place] [address] Dr. Jose Mckinney PROF 14(COMP METB)on 022 Albumin [Mass/Vol] 3.4 g/dL Normal 3.4-5.0 [facility] Comment on above: Performed By: #### U RTPCR #### [facility] [address] [place] [address] Dr. Jose Mckinney Albumin/Globulin [Mass ratio] 1.0 {ratio} Normal [facility] Comment on above: Performed By: #### U RTPCR #### [facility] [address] [place] [address] Dr. Jose Mckinney ALP [Catalytic activity/Vol] 92 U/L Normal 46-116 [facility] Comment on above: Performed By: #### U RTPCR #### [facility] [address] [place] [address] Dr. Jose Mckinney ALT [Catalytic activity/Vol] 113 U/L Critically high 14-59 [facility] Comment on above: Performed By: #### U RTPCR #### [facility] [address] [place] [address] Dr. Jose Mckinney Anion gap [Moles/Vol] 14.0 mmol/L Normal [facility] Comment on above: Performed By: #### U RTPCR #### [facility] [address] [place] [address] Dr. Jose Mckinney AST [Catalytic activity/Vol] 50 U/L Critically high 15-37 [facility] Comment on above: Performed By: #### U RTPCR #### [facility] [address] [place] [address] Dr. Jose Mckinney Bilirubin [Mass/Vol] 0.4 mg/dL Normal 0.2-1.3 [facility] Comment on above: Performed By: #### U RTPCR #### [facility] [address] [place] [address] Dr. Jose Mckinney Calcium [Mass/Vol] 9.0 mg/dL Normal 8.5-10.1 [facility] Comment on above: Performed By: #### U RTPCR #### [facility] [address] [place] [address] Dr. Jose Mckinney Chloride [Moles/Vol] 100 mmol/L Normal 98-107 [facility] Comment on above: Performed By: #### U RTPCR #### [facility] [address] [place] [address] Dr. Jose Mckinney CO2 [Moles/Vol] 25.4 mmol/L Normal 22.0-30.0 [facility] Comment on above: Performed By: #### U RTPCR #### [facility] [address] [place] [address] Dr. Jose Mckinney Creatinine [Mass/Vol] 1.61 mg/dL Critically high 0.52-1.04 [facility] Comment on above: Performed By: #### U RTPCR #### [facility] [address] [place] [address] Dr. Jose Mckinney EGFR-AF MARSHALLESE 41 mL/min/1.73m2 Critically low >=60 [facility] Comment on above: Performed By: #### U RTPCR #### [facility] [address] [place] [address] Dr. Jose Mckinney EGFR-NON AF MARSHALLESE 33 mL/min/1.73m2 Critically low >=60 [facility] Comment on above: Performed By: #### U RTPCR #### [facility] [address] [address] [address] Jose Mckinney Globulin (S) [Mass/Vol] 3.4 g/dL Normal [facility] Comment on above: Performed By: #### U RTPCR #### [facility] [address] [address] [address] Jose Mckinney Glucose [Mass/Vol] 57 mg/dL Critically low 74-106 [facility] Comment on above: Performed By: #### U RTPCR #### [facility] [address] [place] [address] Dr. Jose Mckinney Potassium [Moles/Vol] 3.4 mmol/L Normal 3.4-5.0 [facility] Comment on above: Performed By: #### U RTPCR #### [facility] [address] [address] [address] Jose Mckinney Protein [Mass/Vol] 6.8 g/dL Normal 6.1-8.2 [facility] Comment on above: Performed By: #### U RTPCR #### [facility] [address] [place] [address] Dr. Jose Mckinney Sodium [Moles/Vol] 136 mmol/L Critically low 137-145 [facility] Comment on above: Performed By: #### U RTPCR #### [facility] [address] [place] [address] Dr. Jose Mckinney Urea nitrogen [Mass/Vol] 51.0 mg/dL Critically high 7.0-18 .0 [facility] Comment on above: Performed By: #### U RTPCR #### [facility] [address] [place] [address] Dr. Jose Mckinney Urea nitrogen/Creatinine [Mass ratio] 31.7 mg/mg Normal [facility] Comment on above: Performed By: #### U RTPCR #### [facility] [address] [place] [address] Dr. Jose Mckinney TROPONIN, HIGH SENSITIVITYon 09-04-2021 HSTROP 16.1 pg/mL Normal 4.0-35.5 [facility] Comment on above: Result Comment: CUT- OFF POINTS HAVE BEEN ESTABLISHED BASED ON THE FOURTH UNIVERSAL DEFINITIONS OF MYOCARDIAL INFARCTION. THE UPPER REFERENCE LIMIT (URL) OF TROPONIN, DEFINED THE 99TH PERCENTILE OF cTnI DISTRIBUTION IN A REFERENCE POPULATION, HAS BEEN CONFIRMED THE DECISION THRESHOLD FOR NC DIAGNOSIS. Performed By: #### U RTPCR #### [facility] [address] [address] [address] Jose Mckinney XR CHEST 1 Von [...] AFIA KOHLI Date: 2021-09-04 20:53 Normal [facility] XR CHEST 2 Von 08-29-2021 XR [...] AFIA HALL Date: 2021-08-29 14:43 Normal [facility] Cardiovascular Lab Reporton 11-10-2020 Cardiovascular Lab Report [facility] Patient Name: [facility] Authumn MR #: [id number] Department of Physician: Huy Howell M.D. Division of Service Date: 11/09/2020 Cardiology Birthdate: 1970 Adult Cardiovascular Room #: [address] [address] [address] [id number] Cardiovascular Laboratory Report FINAL IMPRESSION: 1. Mild [...] Chatterjee as scheduled. 5. Follow up with [facility] Cardiology on an as-needed basis. PROCEDURES: [...] the left radial artery was obtained. A 6-Estonian glide sheath was inserted without difficulty. Bilateral [...] Valadez M.D. Date Trans: 11/10/2020 07:37 A/[id number] [id number] cc: Sea Chatterjee M.D. [address] [address] [facility] Vital Signs Date Time Vital Sign Value Performing Clinician Facility 10-09-2023 [id number] Body height 160.02 cm LVN-C Ann Fournier Work Phone: [facility] 10-09-2023 15:26-0400 Body mass index (BMI) [Ratio] 45.8 kg/m2 LVN-C Ann Fournier Work Phone: [facility] 10-09-2023 15:26-0400 Body temperature 95.9 [degF] LVN-C Ann Fournier Work Phone: [facility] 10-09-2023 15:26-0400 Body weight 117.25 kg LVN-C Ann Fournier Work Phone: [facility] 10-09-2023 15:26-0400 Diastolic blood pressure 62 mm[Hg] LVN-C Ann Fournier Work Phone: [facility] 10-09-2023 15:26-0400 Heart rate 75 /min LVN-C Ann Fournier Work Phone: [facility] 10-09-2023 15:26-0400 Respiratory rate 18 /min LVN-C Ann Fournier Work Phone: [facility] 10-09-2023 15:26-0400 SaO2% (BldA) [Mass fraction] 96 % LVN-C Ann Fournier Work Phone: [facility] 10-09-2023 15:26-0400 Systolic blood pressure 110 mm[Hg] LVN-C Ann Fournier Work Phone: [facility] 08-14-2023 10:23-0400 Body height 160 cm Renee Gruber [employer] [facility] 08-14-2023 10:23-0400 Body mass index (BMI) [Ratio] 49.03 kg/m2 Renee Gruber [employer] [facility] 08-14-2023 10:23-0400 Body weight 125.56 kg Renee Gruber [employer] Work Phone: [employer] 08-14-2023 10:23-0400 Diastolic blood pressure 76 mm[Hg] Renee Gruber [employer] [facility] 08-14-2023 10:23-0400 Heart rate 110 /min Renee Gruber [employer] Work Phone: [employer] 08-14-2023 10:23-0400 Systolic blood pressure 144 mm[Hg] Renee Gruber [employer] Work Phone: [employer] 04-30-2023 11:00-0500 Body height 160.02 cm Anila Jasmine Other [employer] Other 04-30-2023 11:00-0500 Body mass index (BMI) [Ratio] 51.54 kg/m2 Anila Jasmine Other [employer] Other 04-30-2023 11:00-0500 Body temperature 96.4 [degF] Anila Jasmine Other [employer] Other 04-30-2023 11:00-0500 Body weight 132 kg Anila Jasmine Other [employer] Other 04-30-2023 11:00-0500 Diastolic blood pressure 84 mm[Hg] Anila Jasmine Other [employer] Other 04-30-2023 11:00-0500 Respiratory rate 18 /min Anila Jasmine Other [employer] Other 04-30-2023 11:00-0500 SaO2% (BldA) [Mass fraction] 96 % Anila Jasmine Other [employer] Other 04-30-2023 11:00-0500 Systolic blood pressure 133 mm[Hg] Anila Jasmine Other [employer] Other 11-11-2022 14:45-0400 Body height 160.02 cm Misha Anahi Other [employer] Other 11-11-2022 14:45-0400 Body mass index (BMI) [Ratio] 49.24 kg/m2 Misha Anahi Other [employer] Other 11-11-2022 14:45-0400 Body weight 126.1 kg Misha Anahi Other [employer] Other 10-07-2022 14:30-0400 Body height 160.02 cm Misha Anahi Other [employer] Other 10-07-2022 14:30-0400 Body mass index (BMI) [Ratio] 50.41 kg/m2 Misha Christian Other [employer] Other 10-07-2022 14:30-0400 Body weight 129.09 kg Misha Christian Other [employer] Other 08-15-2022 15:20-0400 Body height 160.02 cm Anila Jasmine Other [employer] Other 08-15-2022 15:20-0400 Body mass index (BMI) [Ratio] 48.35 kg/m2 Anila Jasmine Other [employer] Other 08-15-2022 15:20-0400 Body temperature 97.4 [degF] Anila Jasmine Other [employer] Other 08-15-2022 15:20-0400 Body weight 123.83 kg Anila Jasmine Other [employer] Other 08-15-2022 15:20-0400 Diastolic blood pressure 70 mm[Hg] Anila Jasmine Other [employer] Other 08-15-2022 15:20-0400 Respiratory rate 18 /min Anila Jasmine Other [employer] Other 08-15-2022 15:20-0400 SaO2% (BldA) [Mass fraction] 99 % Anila Jasmine Other [employer] Other 08-15-2022 15:20-0400 Systolic blood pressure 132 mm[Hg] Anila Jasmine Other [employer] Other 02-11-2022 15:40-0400 Body height 160.02 cm Anila Jasmine Other [employer] Other 02-11-2022 15:40-0400 Body mass index (BMI) [Ratio] 50.37 kg/m2 Anila Jasmine Other [employer] Other 02-11-2022 15:40-0400 Body temperature 96.6 [degF] Anila Jasmine Other [employer] Other 02-11-2022 15:40-0400 Body weight 129 kg Anila Jasmine Other [employer] Other 02-11-2022 15:40-0400 Diastolic blood pressure 54 mm[Hg] Ainla Jasmine Other [employer] Other 02-11-2022 15:40-0400 Respiratory rate 18 /min Anila Jasmine Other [employer] Other 02-11-2022 15:40-0400 SaO2% (BldA) [Mass fraction] 96 % Anila Jasmine Other [employer] Other 02-11-2022 15:40-0400 Systolic blood pressure 131 mm[Hg] Anila Jasmine Other [employer] Other 10-22-2021 15:30-0400 Body height 160.02 cm Arthur Olexa Other [employer] Other 10-22-2021 15:30-0400 Body mass index (BMI) [Ratio] 49.95 kg/m2 Arthur Moy Other [employer] Other 10-22-2021 15:30-0400 Body weight 127.92 kg Arthur Farrellxa Other [employer] Other 08-02-2021 15:40-0500 Body height 160.02 cm Anila Jasmine Other [employer] Other 08-02-2021 15:40-0500 Body mass index (BMI) [Ratio] 50.66 kg/m2 Anila Jasmine Other [employer] Other 08-02-2021 15:40-0500 Body weight 129.73 kg Anila Jasmine Other [employer] Other 08-02-2021 15:40-0500 Diastolic blood pressure 80 mm[Hg] Anila Jasmine Other [employer] Other 08-02-2021 15:40-0500 Respiratory rate 18 /min Anila Jasmine Other [employer] Other 08-02-2021 15:40-0500 SaO2% (BldA) [Mass fraction] 96 % Anila Jasmine Other [employer] Other 08-02-2021 15:40-0500 Systolic blood pressure 132 mm[Hg] Anila Jasmine Other [employer] Other Encounters Encounter Date Encounter Type Care Provider Facility Start: 12-18-2023 End: 12-18-2023 ambulatory [facility] Start: 11-13-2023 End: 11-13-2023 ambulatory ENEDINA Nickerson HEATHER Not Available Start: 11-10-2023 End: 11-10-2023 ambulatory IRMA NGUYEN Not Available Start: 11-03-2023 End: 11-03-2023 ambulatory BOL[facility]AR [facility] Start: 10-09-2023 End: 10-09-2023 ambulatory LVN-C Ann Fournier Work Phone: [facility] Work Phone: Start: 10-09-2023 End: 10-09-2023 Patient encounter procedure LVN-C Ann Fournier Work Phone: [facility] Physician [facility]p Work Phone: Start: 10-08-2023 Non-patient / Non-visit LVN-C Margaux Fournier Work Phone: [facility] Physician [facility] Work Phone: Start: 09-04-2023 End: 09-04-2023 Orders Only Jeni Bonilla [facility] General Surgery Comment on above: Dysphagia, unspecifi ed type Start: 09-03-2023 End: 09-03-2023 Orders Only Not In System Ref Prov [facility] General Surgery Start: 09-03-2023 End: 09-03-2023 Departed Referred LVN-C Ann Fournier Work Phone: [facility] Start: 08-29-2023 ambulatory ANN FOURNIER [facility] Start: 08-14-2023 End: 08-15-2023 Emergency department patient visit SHYANN JONES [facility] Start: 08-14-2023 End: 08-14-2023 ambulatory RENEE GRUBER [facility] Start: 08-14-2023 End: 08-14-2023 Office outpatient new 30 minutes Renee Gruber [employer] Work Phone: [facility] Comment on above: Dysphagia, unspecifi ed type (Primary Dx); Personal history of ovarian cancer; Morbid obesity with BMI of 45.0-49.9, adult ([facility] Start: 06-26-2023 End: 06-26-2023 ambulatory ENEDINA ROMERO Not Available Start: 04-30-2023 Office outpatient vi sit 15 minutes Anila Granados [facility] Nephrology Start: 04-30-2023 End: 04-30-2023 ambulatory LVN-C Ann Bianchi Shantanu Work Phone: [employer] Other Start: 04-30-2023 End: 04-30-2023 Patient encounter procedure LVN-C Ann Velamer Work Phone: [facility] [place] Work Phone: Start: 04-17-2023 End: 04-17-2023 ambulatory ENEDINA ROMERO Not Available Start: 11-11-2022 (Proc F/U) Procedure F/U Misha Christian [facility] Start: 11-11-2022 End: 11-11-2022 ambulatory Misha Christian Other [employer] Other Start: 10-24-2022 End: 10-24-2022 ambulatory Arthur Moy Other [employer] Other Start: 10-24-2022 Telephone encounter Arthur Moy [facility] Start: 10-07-2022 End: 10-07-2022 ambulatory Misha Christian Other [employer] Other Start: 10-07-2022 Office outpatient vi sit 15 minutes Misha Christian [facility] Start: 09-23-2022 End: 09-23-2022 ambulatory Arthur Moy Facility:[facility] Start: 09-23-2022 End: 09-23-2022 ambulatory MD Arthur Moy Work Phone: [facility] Work Phone: Start: 09-23-2022 End: 09-23-2022 Patient encounter procedure MD Arthur Olexa Work Phone: [facility] Start: 08-19-2022 End: 08-19-2022 Patient encounter procedure MD Arthur Moy Work Phone: [facility] Start: 08-19-2022 End: 08-19-2022 ambulatory MD Arthur Moy Work Phone: [facility] Work Phone: Start: 08-19-2022 Office outpatient ne w 30 minutes Arthur Olexa [facility] Start: 08-15-2022 End: 08-15-2022 ambulatory Anila Jasmine Other [employer] Other Start: 08-15-2022 Office outpatient vi sit 25 minutes Anila Jasmine [facility] Start: 08-13-2022 End: 08-14-2022 ambulatory ANILA JASMINE Facility:[facility] Start: 07-08-2022 End: 07-09-2022 ambulatory Afia Hall Facility:[facility] Start: 05-13-2022 End: 05-13-2022 ambulatory ANN FOURNIER Facility:[facility] Start: 02-11-2022 End: 02-11-2022 ambulatory Anila Jasmine Other [employer] Other Start: 02-11-2022 Office outpatient vi sit 25 minutes Anila Jasmine [facility] Start: 02-06-2022 End: 02-07-2022 ambulatory ANN FOURNIER Facility:[facility] Start: 10-22-2021 End: 10-22-2021 ambulatory Arthur Olexa Other [employer] Other Start: 10-22-2021 Office outpatient ne w 30 minutes Arthur Olexa [facility] Start: 09-07-2021 End: 09-07-2021 ambulatory ANN FOURNIER Facility:[facility] Start: 09-04-2021 End: 09-05-[address] AZEEM FITZGERALD Facility:[facility] Start: 08-29-2021 End: 08-30-2021 ambulatory DENYS RICH . Facility:[facility] Start: 08-02-2021 End: 08-02-2021 ambulatory Anila Jasmine Other [employer] Other Start: 08-02-2021 Office outpatient vi sit 15 minutes Anilajames Sellersr [facility] Start: 11-09-2020 End: 11-10-2020 ambulatory SEA HOY Facility:[facility] Start: 10-31-2020 End: 11-01-2020 ambulatory SEA HOY Facility:[facility] Start: 11-06-2017 Ambulatory ANTONIO BRIAN Facility :[id number] Start: 11-06-2017 Ambulatory Facility:[id number] Procedures Date Procedure Procedure Detail Performing Clinician Start: 09-03-2023 Esophagogastroduodenoscopy Reene burden [employer] Work Phone: Start: 09-03-2023 POCT REHAB GLUCOSE Not In System Ref Prov Start: 09-23-2022 X-ray of left knee MD Arthur Moy Work Phone: Start: 08-19-2022 Plain X-ray of right shoulder MD Arthur Moy Work Phone: Start: 08-19-2022 X-ray of cervical spine MD Arthur Moy Work Phone: Replacement of total knee joint Anilajames [employer]ellers[employer] Other Plan of Treatment Date Care Activity Detail Author Start: 08-13-2024 Adult BMI Screening [facility] Start: 08-13-2024 Tobacco Screening Tobacco Screening [employer] Start: 02-01-2024 Influenza [facility] Start: 08-14-2023 End: 08-13-2024 RF Esophagus Views W contrast PO Fluoroscopy esophagus Imaging Routine Dysphagia, unspecified type Expected: 08/14/2023, Expires: 08/13/2024 [facility] Work Phone: Comment on above: Expected: 08/14/2023, Expires: Start: 09-01-2023 Influenza vaccination Influenza Vaccine [facility] Start: 1989 Screening for malignant neoplasm of cervix Pap Smear [facility] Start: 1987 DTaP,Tdap and Td Vaccines (1 - Tdap) DTaP,Tdap and Td Vaccines (1 - Tdap) [facility] Start: 1986 Adult BMI Follow Up Plan Adult BMI Follow Up Plan [facility] Start: 1980 Depression Screening [facility] Screening [facility] End: 08-13-2024 Esophagogastroduodenoscopy EGD GI Routine Dysphagia, unspecified type 1 Occurrences starting 08/14/2023 until 08/13/2024 [facility] [employer] Comment on above: 1 Occurrences starting 08/14/2023 until 08/13/2024 Renal function 2000 panel - Serum or Plasma [facility] Payers Date Payer Category Payer Medicare ANTH MEDICARE [employer] [id number] 2023-Present [phone] [address] [place] [address] [id number] 2022 Self-pay [id number] 2017 Medicaid MEDICAID [facility] EDICAID [id number] 2017-Present [phone] [address] [place] [address] [id number] 2008 Unknown [id number] 1970 Unknown [id number] 1970 Unknown [id number] [id number] 1968 Unknown [id number] [id number] 1968 Unknown [id number] [id number] 1968 Unknown [id number] [id number] 1968 Unknown [id number] [id number] 1968 Unknown [id number] [id number] 1968 Unknown [id number] 2.16.840.1.600099.3.579.2.593 1968 Unknown [id number] 2.16.840.1.141469.3.579.2.593 1968 Unknown [id number] [id number] 1968 Unknown [id number] 2.16.840.1.563525.3.579.2.1286 1968 Unknown [id number] 2.16.840.1.143187.3.579.2.1286 1968 Unknown [id number] 1970 Unknown [id number] 1970 Unknown [id number] [id number] 1970 Unknown [id number] [id number] 1970 Unknown [id number] 2.16.840.1.850467.3.579.2.9 1968 Unknown [id number] [id number] 1968 Unknown [id number] [id number] 1970 Unknown [id number] [id number] 1961 Medicaid [id number] 1961 Unknown [id number] Unknown [id number] Unknown [id number] Social History Date Type Detail Facility Unknown if ever smoked [employer] Other Start: 07-13-2020 End: 08-14-2023 [facility] 1970 Sex Assigned At Female F [facility] Start: 08-14-2023 End: 10-09-2023 Tobacco smoking status NHIS [facility] smoked tobacco [facility] Start: 08-14-2023 Tobacco use and exposure Smokeless tobacco non-user [facility] [employer] [facility] Start: 08-14-2023 Alcohol intake Ex-drinker (finding) [facility] Start: 07-13-2020 End: 08-14-2023 History of Social function [facility] [employer] [facility]care [facility] Start: 1970 Sex Assigned At Not on file [facility] Medical Equipment Procedure Code Equipment Code Equipment Origin al Text Equipment Identifier Dates Start: 11-05-2016 Clinical Notes 08-02-2021 to 12-18-2023 Renee Gruber, [employer] TOPSTITCHER-BODY JOINER - 08/14/2023 10:00 AM EDT Note Date & Type Note Facility 12-18-2023 Note [facility] Cardiology Clinic Note Chief Complaint: wants to know what is going on with her health, and how to go about it from here. HPI: Authsudheer Schaeffer is a 53 y.o. female woman [...] ROS: Review of Systems Cardiovascular: Positive for leg swelling. Respiratory: Positive for shortness of breath. Neurological: Positive for dizziness. All other systems reviewed and are negative. Past Medical History She has a past medical history of Abnormal ECG, Asthma, Diabetes mellitus ([facility]), and Hyperlipidemia. Surgical History She has a past surgical history that includes Cardiac catheterization. Social History She reports that she has never smoked. She has never used smokeless tobacco. She reports that she does not drink alcohol. No history on file for drug use. Family History Family History Problem Relation Name Age of Onset Angina Mother Heart attack Mother Heart attack Maternal Grandfather Allergies Sulfamethoxazole-trimethoprim, Atorvastatin, Azithromycin, Cefprozil, Ciprofloxacin, Keflex [cephalexin], Moxifloxacin, Other, Penicillins, Percocet [oxycodone-acetaminophen], Simvastatin, and Aspirin Medications Current Outpatient Medications: albuterol 90 mcg/actuation inhaler, INHALE 2 PUFFS EVERY 4 HOURS NEEDED FOR SHORTNESS OF BREATH, Disp: , Rfl: allopurinol (Zyloprim) 300 mg tablet, Take 1 tablet by mouth in the morning., Disp: , Rfl: bempedoic acid 180 mg tablet, Take 180 mg by mouth once daily as directed., Disp: 30 tablet, Rfl: 3 budesonide-formoteroL (Symbicort) 160-4.5 mcg/actuation inhaler, Inhale 2 puffs twice a day by inhalation route., Disp: , Rfl: clopidogrel (Plavix) 75 mg tablet, Take 1 tablet (75 mg) by mouth in the morning., Disp: 90 tablet, Rfl: 3 DOCOSAHEXAENOIC ACID ORAL, Take by mouth., Disp: , Rfl: Dupixent Pen 300 mg/2 mL pen injector, , Disp: , Rfl: fenofibrate (Lofibra) 160 mg tablet, Take 1 tablet by mouth at bedtime., Disp: , Rfl: ferrous sulfate 325 (65 Fe) MG tablet, Take 325 mg by mouth., Disp: , Rfl: fexofenadine (Chacha) 180 mg tablet, Take 180 mg by mouth in the morning., Disp: , Rfl: furosemide (Lasix) 20 mg tablet, Take 20 mg by mouth in the morning and at bedtime., Disp: , Rfl: HumuLIN R U-500, Conc, Insulin 500 unit/mL CONCENTRATED injection, USE WITH INSULIN PUMP (EXPECT UP TO 200 UNITS TOTAL DAILY, Disp: , Rfl: levothyroxine (Synthroid, Levoxyl) 175 mcg tablet, TAKE ONE TABLET BY MOUTH IN THE MORNING DAILY ON AN EMPTY STOMACH, WAIT 30 MIN BEFORE EATING OR DRINKING, Disp: , Rfl: lisinopril 10 mg tablet, Take 1 tablet (10 mg) by mouth in the morning., Disp: 90 tablet, Rfl: 3 Lyrica 100 mg capsule, Take 100 mg by mouth three times daily., Disp: , Rfl: metoprolol tartrate (Lopressor) 50 mg tablet, Take 1 tablet by mouth in the morning and at bedtime., Disp: , Rfl: montelukast (Singulair) 10 mg tablet, Take 10 mg by mouth in the morning., Disp: , Rfl: pantoprazole (ProtoNix) 40 mg EC tablet, Take 1 tablet by mouth in the morning and at bedtime., Disp: , Rfl: tiotropium (Spiriva Respimat) 1.25 mcg/actuation inhaler, INHALE 2 PUFFS DAILY, Disp: , Rfl: Trulicity 4.5 mg/0.5 mL pen injector, Inject 4.5 mg under the skin every 7 (seven) days., Disp: , Rfl: Last Recorded Vitals BP 132/74 (BP Location: Left arm, Patient Position: Sitting, BP Cuff Size: Large adult) Pulse 82 Resp 18 Ht 1.6 m (5' 3 ) Wt 126 kg (278 lb) SpO2 99% BMI 49.25 kg/m??? Physical Examination: (more content not included)... [facility] 11-03-2023 Note [facility] Cardiology Clinic Note Chief Complaint: Patient here [...] Dr. Andrew already scheduled 5. Follow-up with [facility] cardiology on an as-needed basis MARY [...] pain Paroxysmal supraventri (more content not included)... [facility] 08-14-2023 History of Present illness Narrative Images [...] Date Anemia Asthma Diabetes type 2, controlled ([facility]) GI problem Herniation of right side of L4-L5 intervertebral disc High cholesterol Hypertension Hypothyroidism Nerve damage in feet and legs Osteoarthritis Ovarian cancer (CMS-HCC) Past Surgical History: Procedure Laterality Date APPENDECTOMY [...] daily with breakfast., Disp: , Rfl: fexofenadine (CHACHA) 180 mg tablet, Take 1 tablet (180 [...] tablet,chewable, Chew and swallow., Disp: , Rfl: eciiy-odeyl-3-tph-xzc-zcgdgs 178-88-76-50 mg capsule, Take by mouth., Disp: , [...] Referring and communicating with other health career services representative Dysphagia, unspecified type [R13.10] SHAYLA RUBIO [facility] [place] This note was created with the assistance of a speech recognition program. While intending to generate a timely document that accurately reflects the content of the visit, no guarantee can be provided that every grammatical or spelling mistake has been or will be identified or corrected. Thank you for your understanding. SHAYLA Rubio 08/14/23 1058 documented in this encounter [facility] 04-30-2023 Evaluation note Encounter Date Diagnosis [...] and vitamin D are within the goal. [employer] Other 05-08-2023 Evaluation note* Encounter Date Diagnosis [...] as documented in the electronic medical record. [employer] Other 03-20-2023 Evaluation note* Encounter Date Diagnosis [...] 2 diabetes mellitus without complication, unspecified whether ferry terminal agent insulin use (ICD-10 - E11.9) Jul, Cervical spine pain (ICD-10 - M54.2) [employer] Other 03-16-2023 Evaluation note* Encounter Date Diagnosis [...] PCP office to see if the case sealer can help her with the subsidized housing. [...] and vitamin D are within the goal. [employer] Other 02-07-2023 NotePROCEDURE: XR HIP LT 2 [...] Electronically authenticated by: AFIA HALL Date: 2022-07-09 07:42[facility]09-12-20[facility] Evaluation note* Encounter Date Diagnosis Assessment [...] PCP office to see if the case sealer can help her with the subsidized housing. [...] currently does not take PAULETTE or ARB. [employer] Other 05-23-2022 Evaluation note* Encounter Date Diagnosis [...] MRI to assess for rotator cuff tear. [employer] Other 03-03-2022 Evaluation note* Encounter Date Diagnosis [...] currently does not take PAULETTE or ARB. [employer] Other Evaluation noteNo assessment information available [facility] Work Phone: Evaluation noteNo InformationNort [employer] Other Evaluation noteNort [employer] Other Evaluation note* Diagnosis Dysphagia, unspecified type- Primary Personal history of ovarian cancer Personal history of malignant neoplasm of ovary Morbid obesity with BMI of 45.0-49.9, adult ([facility]) [facility] Diagnosis Dysphagia, unspecified type documented [facility] this encounter [facility]* Diagnosis Onset Date Resolution Status CKD (chronic kidney disease) stage 3, GFR 30-59 ml/min acute [id number] acute Hyperuricemia acute Hypoparathyroidism acute 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 disease acute Vitamin D deficiency acute [facility] Work Phone: History general Narrative - Reported* [...] Procedure:Cholecystectomy;Disea se: 2000 Surgical History shoulder surgery 2009 Surgical History appendectomy 2010 Surgical History Procedure:ativan, zo dayron, tylenol;Disease:right upper quad pain 2011 Surgical History bone spur 2011 Surgical History back surgery 2011 Surgical History herniated disk repair 2011 Surgical History right total knee (07/28/12) Surgical History injections to back Dr Lundberg 09/30 Surgical History carpel tunnel right 09/16 Surgical History Heart Cath 11/09/2020 Surgical History HYSTERECTOMY/ PNEUMONIA 1 Hospitalization History SEE ABOVE SURGERY Hospitalization History [facility] 02/2020 [employer] Other History general Narrative - Reported* Type [...] History arthroscopy rt x's 2 shoulder 2 Surgical History Procedure: Carpal tunnel releas e;Disease: [...] Heart Cath 11/09/2020 Surgical History HYSTERECTOMY/ PNEUMONIA 1 Hospitalization History SEE ABOVE SURGERY Hospitalization History [facility]ul[facility] 02/2020 [employer] Other History general Narrative - ReportedNortOsteoplastics Other InstructionsNot on filedocumented in this encounter [facility] filedocumented in this [facility] SystemInstructionsNot on filedocumented in this encounter [facility] Summary Purpose Family History No [...] kidney disease) stage 3, GFR 30-59 ml/min [id number] Hyperuricemia Hypoparathyroidism Type 2 diabetes mellitus with diabetic chronic kidney disease Vitamin D deficiency Reason for Referral Specialty Diagnoses / Procedures Referred By Marina ruiz Referred To Contact Diagnoses Dysphagia, unspecified type Procedures Fluoroscopy esophagus Renee Gruber, [employer] TOPSTITCHER-BODY JOINER [id number] [id number] Referral ID Status Reason Start Date Expiration Date V isits Requested Visits Authorized [id number] Pending Review 08/14/2023 08/13/2024 1 1 Additional Source Comments INFORMATION SOURCE (unrecogn ized section and content) DATE CREATED AUTHOR 11/18/2017 [facility] DATE CREATED AUTHOR AUTHOR'S ORGANIZ ATION 11/18/2017 [facility] DATE CREATED AUTHOR AUTHOR'S ORGANIZ ATION 11/16/2020 [facility] DATE CREATED AUTHOR AUTHOR'S ORGANIZ ATION 08/20/2022 [facility] DATE CREATED AUTHOR AUTHOR'S ORGANIZ ATION 08/16/2023 [facility] DATE CREATED AUTHOR AUTHOR'S ORGANIZ ATION 09/02/2023 [facility] DATE CREATED AUTHOR AUTHOR'S ORGANIZ ATION 09/06/2023 [facility] DATE CREATED AUTHOR AUTHOR'S ORGANIZ ATION 11/15/2023 [facility] dical Specialists [facility] DATE CREATED AUTHOR AUTHOR'S ORGANIZ ATION 12/22/2023 [facility] REASON FOR VISIT (unrecogniz ed section [...] Active Anila Granados MD Attending Provider Active Line Welder Relationship Specialty Start Date End Date Ann Fournier APRN-BODY JOINER [address] [facility] [place] [address] PCP - General Family Medicine 08/14/23 Line Welder Relationship Specialty Start Date End Date nAn Fournier APRN-BODY JOINER [address] [facility] [place] [address] PCP - General Family Medicine 08/14/23 Team Status: Inactive Member Role Status Dates CAROLYN Fitzgerald Primary Care Provider Active Start: September 03, 2023 End: September 03, 2023 Antonio Boo DO Attending Provider Active Start: September 03, 2023 End: September 03, 2023 Line Welder Relationship Specialty Start Date End Date Ann Fournier ZIGZAG TOPSTITCHER-BODY JOINER [address] [facility], [facility] [address] PCP - General Family Medicine 08/14/23 Team [...] BE BASED ON THE PRIMARY CLINICAL RECORDS. [employer] provides no warranty or guarantee of the accuracy or completeness of information in this document.
--- NOTE | 2023-12-26 14:44 | XR_ITS ---
The [address] [address] [facility]: [id number] date: 1970 Sex: F Assigned Patient Location: ER Current Patient Location: ER Accession/Order Number: [id number] Exam Date: 12/26/2023 15:15 Report Date: 12/26/2023 15:51 At the request of: MAIA REYES Procedure: XR chest 2V EXAM: XR chest 2V HISTORY: Pain to left lower rib area, no injury COMPARISON: Chest x-ray obtained as part of a rib series 06/17/2023. Chest x-ray 09/04/2021. TECHNIQUE: PA, lateral chest x-ray. FINDINGS: Cardiac silhouette enlarged unchanged. Lung markings prominent stable without new or increasing lung density, consolidation or edema. No pleural effusion or pneumothorax. Slight elevation right diaphragm unchanged. XR/XR chest 2V IMPRESSION: Stable chest x-ray, no acute or new abnormality. Electronically authenticated by: MARILIN PINEDO Date: 12/26/2023 15:51
--- NOTE | 2023-12-26 14:45 | ED.GENADUL1 ---
HPI HPI - General Adult General Chief complaint: Back Pain/Injury Stated complaint: BACK PAIN Time Seen by Provider: 12/26/23 14:41 Source: patient Mode of arrival: Wheelchair Limitations: physical limitation History of Present Illness HPI narrative: 53-year-old female presents to the emergency department for pain to her left lower posterior rib area. She has had it for a week and she gives no history of any injury or unusual activity. She states if she sits still it does not hurt at all but if she moves it hurts. No dysuria or hematuria. No fever or cough or right-sided pain. No midline pain. Related Data Home Medications ?Medication ?Instructions ?Recorded ?Confirmed Lactobacillus acidophilus 100 mg PO DAILY 08/26/23 09/03/23 albuterol 90 mcg/actuation aerosol 90 mcg inhalation .every 4 hours 08/26/23 09/03/23 inhaler PRN shortness of breath allopurinol 300 mg tablet 300 mg PO DAILY 08/26/23 09/03/23 ascorbic acid (vitamin C) 250 mg 250 mg PO DAILY 08/26/23 09/03/23 chewable tablet biotin 5,000 mcg disintegrating 10,000 mcg PO DAILY 08/26/23 09/03/23 tablet budesonide-formoterol HFA 80 1 puff inhalation BID 08/26/23 09/03/23 mcg-4.5 mcg/actuation aerosol inhaler (Symbicort) cholecalciferol (vitamin D3) 50 2,000 mcg PO DAILY 08/26/23 09/03/23 mcg (2,000 unit) disintegrating tablet cyclobenzaprine 10 mg tablet 10 mg PO QAM 08/26/23 09/03/23 dulaglutide 4.5 mg/0.5 mL 4.5 mg subcut QWEEK 08/26/23 09/03/23 subcutaneous pen injector ([facility]) fenofibrate 160 mg tablet 160 mg PO DAILY 08/26/23 09/03/23 ferrous sulfate 325 mg (65 mg 325 mg PO DAILY 08/26/23 09/03/23 iron) tablet fexofenadine 180 mg tablet 180 mg PO DAILY 08/26/23 09/03/23 fluticasone propionate 50 1 spray intranasal DAILY PRN nasal 08/26/23 09/03/23 mcg/actuation nasal congestion spray,suspension (Flonase Allergy Relief) furosemide 40 mg tablet 40 mg PO DAILY 08/26/23 09/03/23 insulin regular hum U-500 conc 500 150 unit subcut QAM 08/26/23 09/03/23 unit/mL subcutaneous soln (Humulin R U-500 (Concentrated) Insulin) insulin regular hum U-500 conc 500 150 unit subcut QNOON 08/26/23 09/03/23 unit/mL subcutaneous soln (Humulin R U-500 (Concentrated) Insulin) insulin regular hum U-500 conc 500 150 unit subcut QPM 08/26/23 08/26/23 unit/mL subcutaneous soln (Humulin R U-500 (Concentrated) Insulin) inulin 2 gram chewable tablet 2 g PO DAILY 08/26/23 09/03/23 (Fiber Gummies) levothyroxine 175 mcg capsule 150 mcg PO DAILY 08/26/23 09/03/23 metoprolol tartrate 50 mg tablet 50 mg PO DAILY 08/26/23 09/03/23 montelukast 10 mg tablet 10 mg PO DAILY 08/26/23 09/03/23 nystatin 100,000 unit/gram topical 1 applic topical DAILY 08/26/23 09/03/23 cream ondansetron 4 mg disintegrating 4 mg PO DAILY PRN nausea and 08/26/23 09/03/23 tablet vomiting pantoprazole 40 mg tablet,delayed 40 mg PO BID 08/26/23 09/03/23 release (Protonix) pregabalin 75 mg capsule (Lyrica) 75 mg PO DAILY 08/26/23 09/03/23 tiotropium bromide 1.25 2 inh inhalation DAILY 08/26/23 09/03/23 mcg/actuation mist for inhalation famotidine 40 mg tablet (Pepcid) 40 mg PO DAILY 08/27/23 09/03/23 Previous Rx's ?Medication ?Instructions ?Recorded acetaminophen 300 mg-codeine 30 mg 1 tab PO Q6H PRN pain 5 days #20 12/26/23 tablet tabs Allergies Allergy/AdvReac Type Severity Reaction Status Date / Time azithromycin Allergy Severe Hives Verified 12/26/23 14:28 cephalexin Allergy Severe Hives Verified 12/26/23 14:28 ciprofloxacin Allergy Severe Hives Verified 12/26/23 14:28 Penicillins Allergy Severe Anaphylaxis Verified 12/26/23 14:28 sulfamethoxazole Allergy Severe Anaphylaxis Verified 12/26/23 14:28 sulfanilamide Allergy Severe Anaphylaxis Verified 12/26/23 14:28 trimethoprim Allergy Severe Anaphylaxis Verified 12/26/23 14:28 acetaminophen [From Percocet] AdvReac Severe Vomiting Verified 12/26/23 14:28 aspirin AdvReac Severe Vomiting Verified 12/26/23 14:28 cefprozil [From Cefzil] AdvReac Severe Hives Verified 12/26/23 14:28 moxifloxacin [From Avelox] AdvReac Severe Hives Verified 12/26/23 14:28 oxycodone [From Percocet] AdvReac Severe Vomiting Verified 12/26/23 14:28 Opioid HPI Opioid Management Most Recent Opioid Data: Last Pain Scale 5 12/26/23 16:46 Last ED Pain Assessment 12/26/23 16:46 Last MAR Pain Assessment 12/26/23 16:22 Review of Systems ROS Narrative A ten point review of systems is negative except as noted above. [facility] Medical History (Updated 12/26/23 @ 17:04 by Brian Cota MD) Fall ?W19.XXXA - Unspecified fall, initial encounter (ICD-10) Concussion ?S06.0XAA - Concussion with loss of consciousness status unknown, initial encounter (ICD-10) Obesity ?E66.9 - Obesity, unspecified (ICD-10) Delayed recovery from anesthesia Postoperative nausea and vomiting ?R11.2 - Nausea with vomiting, unspecified (ICD-10) ?Z98.890 - Other specified postprocedural states (ICD-10) Dysphagia ?R13.10 - Dysphagia, unspecified (ICD-10) Ovarian cancer ?C56.9 - Malignant neoplasm of unspecified ovary (ICD-10) Osteoarthritis ?M19.90 - Unspecified osteoarthritis, unspecified site (ICD-10) Nerve damage of right foot ?G57.91 - Unspecified mononeuropathy of right lower limb (ICD-10) Nerve damage of left foot ?G57.92 - Unspecified mononeuropathy of left lower limb (ICD-10) Hypothyroidism ?E03.9 - Hypothyroidism, unspecified (ICD-10) Hypertension ?I10 - Essential (primary) hypertension (ICD-10) High cholesterol ?E78.00 - Pure hypercholesterolemia, unspecified (ICD-10) Herniation of right side of L4-L5 intervertebral disc ?M51.26 - Other intervertebral disc displacement, lumbar region (ICD-10) GI problem ?R19.8 - Other specified symptoms and signs involving the digestive system and abdomen (ICD-10) Diabetes 1.5, managed as type 2 ?E13.9 - Other specified diabetes mellitus without complications (ICD-10) Asthma ?J45.909 - Unspecified asthma, uncomplicated (ICD-10) Anemia ?D64.9 - Anemia, unspecified (ICD-10) Surgical History (Updated 08/27/23 @ 13:[address], RN) H/O: hysterectomy ?Z90.710 - Acquired absence of both cervix and uterus (ICD-10) Hx of tonsillectomy ?Z90.89 - Acquired absence of other organs (ICD-10) Total knee replacement status ?Z96.659 - Presence of unspecified artificial knee joint (ICD-10) S/P surgery on nasal septum ?Z98.890 - Other specified postprocedural states (ICD-10) History of arthroscopic knee surgery ?Z98.890 - Other specified postprocedural states (ICD-10) History of discectomy ?Z98.890 - Other specified postprocedural states (ICD-10) History of cholecystectomy ?Z90.49 - Acquired absence of other specified parts of digestive tract (ICD-10) History of appendectomy ?Z90.49 - Acquired absence of other specified parts of digestive tract (ICD-10) Family History (Updated 08/27/23 @ 13:[address], RN) Mother Arthritis Asthma Family history of hypertension Hyperlipidemia Family history of stroke Father Arthritis Family history of diabetes mellitus Family history of hypertension Alzheimer's disease Other Family history of cancer Social History (Updated 08/27/23 @ 13:[address], RIGOBERTO) Within the past year, how often did you have a drink containing alcohol: never Score interpretation: A score less than 3 is consistent with normal alcohol consumption. Smoking status: Never smoker Second hand tobacco smoke exposure: No Non-prescribed substance use: denies use Previous occupational history: disability Highest level of school completed/degree received: some college, no degree Exam Narrative Exam Narrative: Nurses note and vital signs reviewed and patient is not hypoxic. General: The patient appears in no apparent distress. Skin: Warm, dry, no pallor noted. There is no rash noted, including in the left flank area. Head: Normocephalic, atraumatic Eye: Normal conjunctiva, no drainage Ears, Nose, Mouth, and Throat: oral mucosa is moist. Nares patent. Cardiovascular: Regular Rate and Rhythm Respiratory: Patient is in no distress, no accessory muscle use, lungs are clear to auscultation, no wheezing, rales or rhonchi Back: There is no bruise or rash or apparent tenderness to palpation of the left flank area. There is no thoracic or lumbar spine tenderness. GI: Soft and nontender Musculoskeletal: No joint swelling Neurological: A&O, normal speech Psychiatric: Cooperative Constitutional Vital Signs, click to edit/add: Last Vital Signs Temp 98.6 F 12/26/23 14:24 Pulse 74 12/26/23 14:24 Resp 20 12/26/23 14:24 BP 150/83 H 12/26/23 14:24 Pulse Ox 98 12/26/23 14:24 O2 Del Method Room Air 12/26/23 14:24 Course Vital Signs Vital signs: Vital Signs Temperature 98.6 F 12/26/23 14:24 Pulse Rate 74 12/26/23 14:24 Respiratory Rate 20 12/26/23 14:24 Blood Pressure 150/83 H 12/26/23 14:24 Pulse Oximetry 98 12/26/23 14:24 Oxygen Delivery Method Room Air 12/26/23 14:24 Temperature 98.6 F 12/26/23 14:24 Pulse Rate 74 12/26/23 14:24 Respiratory Rate 20 12/26/23 14:24 Blood Pressure 150/83 H 12/26/23 14:24 Pulse Oximetry 98 12/26/23 14:24 Oxygen Delivery Method Room Air 12/26/23 14:24 Medical Decision Making MDM Narrative Medical decision making narrative: Urinalysis is negative. No blood in the urine and I do not suspect kidney stone. No evidence of UTI. X-rays are negative. She has no pain unless she moves. My impression is that this is muscular. I do not suspect pulmonary embolism. She is feeling improved with IM Toradol and is discharged home with a prescription for Tylenol 3. Treatment diagnosis and follow-up were discussed with the patient. Differential Diagnosis Differential Diagnosis: Muscle strain, pneumonia, kidney stone, UTI Lab Data Lab results reviewed: Yes I reviewed the patient's lab results Labs: Lab Results 12/26/23 Range/Units 15:40 Urine Color Yellow (YELLOW) Urine Clarity Clear (CLEAR) Urine pH 8.0 (5.0-9.0) Ur Specific [place] 1.015 (1.005-1.025) Urine Protein Negative (NEG/TRACE) mg/dL Urine Glucose (UA) Negative (NEGATIVE) mg/dL Urine Ketones Negative (NEGATIVE) mg/dL Urine Occult Blood Negative (NEGATIVE) Urine Nitrite Negative (NEGATIVE) Urine Bilirubin Negative (NEGATIVE) Urine Urobilinogen 0.2 (0.2-1.0) EU/dL Ur Leukocyte Esterase Negative (NEGATIVE) Urine RBC 0-2 (0-2) #/HPF Urine WBC 0-2 A (NONE SEEN) #/HPF Ur Squamous Epith Cells Few A (NONE/RARE) #/LPF Urine Crystals None seen (None Seen) #/HPF Urine Bacteria None seen (NONE SEEN) #/HPF Urine Casts None seen (NONE SEEN) #/LPF Urine Mucus None seen (NONE SEEN) Imaging Data Chest x-ray: Radiologist's impression: ITS Impressions Chest X-Ray 12/26/23 14:44 IMPRESSION: Stable chest x-ray, no acute or new abnormality. Electronically authenticated by: MARILIN PINEDO Date: 12/26/2023 15:51 Discharge Plan Discharge Stand Alone Forms: Portal Instructions Chief Complaint: Back Pain/Injury Clinical Impression: Musculoskeletal back pain Patient Disposition: Home, Self-Care Time of Disposition Decision: 17:04 Condition: Good Mode of Transportation: Private Vehicle Prescriptions / Home Meds: New acetaminophen-codeine 300-30 mg tablet 1 tab PO Q6H PRN (Reason: pain) 5 Days Qty: 20 0RF No Action albuterol 90 mcg/actuation aerosol 90 mcg inhalation .every 4 hours PRN (Reason: shortness of breath) allopurinol 300 mg tablet 300 mg PO DAILY ascorbic acid (vitamin C) 250 mg tablet,chewable 250 mg PO DAILY biotin 5,000 mcg tablet,disintegrating 10,000 mcg PO DAILY cholecalciferol (vitamin D3) 50 mcg (2,000 unit) tablet,disintegrating 2,000 mcg PO DAILY cyclobenzaprine 10 mg tablet 10 mg PO QAM fenofibrate 160 mg tablet 160 mg PO DAILY ferrous sulfate 325 mg (65 mg iron) tablet 325 mg PO DAILY fexofenadine 180 mg tablet 180 mg PO DAILY fluticasone propionate [Flonase Allergy Relief] 50 mcg/actuation spray,suspension 1 spray intranasal DAILY PRN (Reason: nasal congestion) Rx Instructions: administer into each nostril furosemide 40 mg tablet 40 mg PO DAILY Humulin R U-500 (Conc) Insulin 500 unit/mL solution 150 unit subcut QAM Humulin R U-500 (Conc) Insulin 500 unit/mL solution 150 unit subcut QNOON Humulin R U-500 (Conc) Insulin 500 unit/mL solution 150 unit subcut QPM Fiber Gummies 2 gram tablet,chewable 2 g PO DAILY Lactobacillus acidophilus Capsule 100 mg PO DAILY levothyroxine 175 mcg capsule 150 mcg PO DAILY pregabalin [Lyrica] 75 mg capsule 75 mg PO DAILY metoprolol tartrate 50 mg tablet 50 mg PO DAILY montelukast 10 mg tablet 10 mg PO DAILY ondansetron 4 mg tablet,disintegrating 4 mg PO DAILY PRN (Reason: nausea and vomiting) pantoprazole [Protonix] 40 mg tablet,delayed release (DR/EC) 40 mg PO BID budesonide-formoterol [Symbicort] 80-4.5 mcg/actuation HFA aerosol inhaler 1 puff inhalation BID tiotropium bromide 1.25 mcg/actuation mist 2 inh inhalation DAILY Trulicity 4.5 mg/0.5 mL pen injector 4.5 mg subcut QWEEK Rx Instructions: friday nystatin 100,000 unit/gram cream 1 applic topical DAILY famotidine [Pepcid] 40 mg tablet 40 mg PO DAILY Rx Instructions: at bedtime Print Language: German Instructions: Back Pain (ED) Referrals: RICHELLE FOURNIER [Primary Care Provider] - 1 week
[2023-12-26 15:50] LABS: Bilirubin Urine NEGATIVE (NEGATIVE); Blood Urine NEGATIVE (NEGATIVE); Clarity Urine CLEAR (CLEAR); Color Urine YELLOW (YELLOW); Glucose Urine UA NEGATIVE (NEGATIVE); Ketones Urine NEGATIVE (NEGATIVE); Leukocyte Esterase Urine NEGATIVE (NEGATIVE); Nitrite Urine NEGATIVE (NEGATIVE); Protein Urine NEGATIVE (NEG/TRACE); Specific Gravity Urine 1.015 (1.005-1.025); Urobilinogen Urine 0.2 EU/dL (0.2-1.0)
[2023-12-26 16:02] LABS: Bacteria Urine NONE SEEN #/HPF (NONE SEEN); Cast Seen? NONE SEEN #/LPF (NONE SEEN); Crystals Seen? None Seen #/HPF (None Seen); Mucus Urine NONE SEEN (NONE SEEN); RBC Urine 0-2 #/HPF (0-2); Squamous Epithelial Cell Urine FEW #/LPF (NONE/RARE); WBC Urine 0-2 #/HPF (NONE SEEN)
[2023-12-26] MEDS: KETOROLAC TROMETHAMINE 60 MG/2 ML VIAL IM (16:22)
[2023-12-26 17:21] VITALS: BP 149/82; PULSE 82; O2SAT 99
== END 2023-12-26 17:21 | disposition home or self-care (01) ==
PROVIDERS: Emergency Provider Emergency Medicine; PCP Nurse Practitioner Family
DX: M54.9 Dorsalgia, unspecified (principal)
CPT/HCPCS: 71046; 81001; 96372; 99285; J1885

== ENCOUNTER 2024-01-12 14:15 | Outpatient (OUT) | payer MEDICARE, MEDICAID, SELFPAY ==
--- OUTSIDE RECORDS SUMMARY | 2024-01-12 14:31 | XMS_ITS | CCD ---
Author Organization [facility] Care Team Providers Care Wash Worker Name Role Phone ANTONIO BRIAN Unavailable Unavailable JARAD NULL Unavailable Unavailab le RENA, SEA Primary Care Unavailable HOY, SEA Referring Unavailable ELTAHAWY, EHAB A Admitting Unavailable ELTAHAWY, EHAB A Attending Unavailable HOY, SEA Primary Care Unavailable HOY, SEA Referring Unavailable ELTAHAWY, EHAB A Admitting Unavailable ELTAHAWY, EHAB A Attending Unavailable Jasmine, Anila Unavailable Arthur Moy Unavailable MD Arthur Moy Attending Provider [phone] SHANTANU, ANN Primary Care Unavailable JASMINE, ANILA [...] Provider MD Anila Granados Attending Provider Shantanu KEYPUNCH OPERATOR-BENEFITS CLERK, Ann S Primary Care Provider SHANTANU, ANN S Primary Care Unavailable SHYANN JONES Attending Unavailable SHYANN JONES Referring Unavailable SHANTANU, ANN S Primary Care Unavailable RENEE GRUBER Attending Unavailable JARAD NULL Referring Unavailable TENNILLEJARAD NICHOLSON Primary Care Unavailable SHANTANU, ANN S Referring Unavailable SHANTANU, ANN S Primary Care Unavailable CAROLYN Fournierela Tash Primary Care Provider DO Antonio Boo Attending Provider [phone] Antonio Boo Admitting Unavailable Antonio Boo Attending [...] Acetaminophen / oxyCODONE Drug Allergy 021 [facility] Repository Aspirin (1 source) Aspirin Drug Allergy [facility] Repository Cephalosporins (antibiotic) (3 sources) Cephalexin; Translations: [cephalexin] Drug Allergy [facility] Repository Macrolides (antibiotic) (1 source) Clarithromycin Drug Allergy [facility] Repository Penicillins (antibiotic) (1 source) Penicillin Drug Allergy [facility] Repository Quinolones (antibiotic) (2 sources) moxifloxacin; Translations: [Cipro] Drug Allergy [facility] Repository Sulfamethoxazole / Trimethoprim (1 source) Sulfamethoxazole / Trimethoprim Drug Allergy [facility] Repository Unclassified (12 sources) Adhesive agent Drug allergy (disorder) Unknown, Rash [facility] Repository (12 sources) Acetaminophen / oxyCODONE Drug Allergy Vomiting [facility] Other (17 sources) Aspirin; Translations: [ASPIRIN] Drug [facility] (10 sources) cefprozil; Translations: [Cefzil] Drug Allergy Unknown [facility] Repository (17 sources) Cephalexin; Translations: [CEPHALEXIN] Drug Allergy [facility] Other (11 sources) Cephalosporins (Antibiotic) Propensity to adverse reactions [facility] (20 sources) Ciprofloxacin; Translations: [ciprofloxacin] Drug Allergy [facility] Other (20 sources) moxifloxacin; Translations: [MOXIFLOXACIN] Drug Allergy [facility] Other (11 sources) oxyCODONE Drug Allergy nausea [facility] (11 sources) penicillAMINE Drug Allergy anaphylaxis [facility] (14 sources) Penicillins; Translations: [PENICILLINS] Propensity to adverse reactions Unknown [facility] Repository (12 sources) Soy protein; Translations: [soy] Propensity to adverse reactions 014 anaphylaxis [facility] Repository (16 sources) Sulfamethoxazole; Translations: [SULFAMETHOXAZOLE] Drug Allergy 011 Anaphylaxis, Swelling [facility] Other (12 sources) Sulfamethoxazole / Trimethoprim Drug Allergy 018 anaphylaxis [facility] Other (16 sources) Sulfanilamide; Translations: [SULFANILAMIDE] Drug Allergy Anaphylaxis [facility] Other (16 sources) Trimethoprim; Translations: [TRIMETHOPRIM] Drug Allergy Anaphylaxis [facility] Other (11 sources) Foam Tape Propensity to adverse reactions Unknown, Rash [facility] (11 sources) BCise Propensity to adverse reactions stomach upset [facility] (9 sources) Avalox Propensity to adverse reactions Unknown [facility] Other (1 source) Acetaminophen / oxyCODONE Drug Allergy [facility] Repository (1 source) Aspirin Drug Allergy [facility] (1 source) Cephalexin Drug Allergy [facility] Rep[facility] (1 source) Ciprofloxacin Drug Allergy [facility] (1 source) Clarithromycin Drug Allergy [facility] (1 source) Desonide Drug Allergy [facility] Repository (1 source) egg extract Drug Allergy [facility] Repository (1 source) moxifloxacin Drug Allergy [facility] Repository (1 source) Penicillins Drug allergy (disorder) [facility] Repository (1 source) Sulfamethoxazole / Trimethoprim Drug Allergy [facility] Repository (1 source) tomato allergenic extract Drug Allergy [facility] Repository (1 source) Misc-ENV; Translations: [Misc-ENV] Propensity to adverse reactions (disorder) [facility] Repository (1 source) Misc-Other; Translations: [Misc-Other] Propensity to adverse reactions (disorder) [facility] Repository (1 source) Misc-Food; Translations: [Misc-Food] Food allergy (disorder) [facility] Repository (14 sources) Azithromycin; Translations: [AZITHROMYCIN] Drug Allergy rash, Hives [facility] (8 sources) cefprozil; Translations: [CEFPROZIL] Drug Allergy 011 Hives [facility] (3 sources) Penicillins Propensity to adverse reactions to drug Anaphylaxis [facility] (3 sources) Acetaminophen / oxyCODONE; Translations: [OXYCODONE-ACETAMIN OPHEN] Drug Allergy [facility] Repository (3 sources) Sulfamethoxazole / Trimethoprim; Translations: [SULFAMETHOXAZOLE-T RIMETHOPRIM] Drug Allergy [facility] Repository (2 sources) Acetaminophen Drug Allergy Unknown Reaction [facility] (1 source) atorvastatin; Translations: [ATORVASTATIN] Drug Allergy [facility] Repository (1 source) Simvastatin; Translations: [SIMVASTATIN] Drug Allergy [facility] Repository (1 source) OTHER; Translations: [OTHER] Propensity to adverse reactions (disorder) [facility] Repository Medications Current Medications Medication Drug Class(es) Dates Sig (Normalized) Sig (Original) [id number] 200 actuat albuterol 0.09 mg/actuat metered dose [...] Active krill oil (10 sources) Start: 10-09-2023 Rdtkb-Dd-9-Dha -Wuv-Wixcynm-Ufg (Krill Oil) 1,302-609-64-80 mg capsule Active 1 CAP PO Twice daily October 09, 2023 12:00am Krill Oil 300 MG Orally Active dtiwl-ntppk-2-ekf-nnl-rxcwev 486-87-12-50 mg capsule (3 sources) awgxl-pfeqj-5-dh w-qsr-gwirtl 835-58-21-50 mg capsule Take by mouth. 0 Active [...] 11-03-2017 montelukast (S INGULAIR) 10 mg tablet Irryixeb-Ihu-Uqxzfad Sulfate (One Daily Multi-Vit W-Mineral) 4.5 mg iron tablet (1 source) Start: 10-09-2023 take 1 tablet by mouth once daily Btuiaqsh-Dsz-Tmxipjb Sulfate (One Daily Multi-Vit W-Mineral) 4.5 mg [...] ( PROTONIX) 40 mg EC tablet Pen Harper 5/16 (3 sources) Start: 08-05-2018 Pen Harper 5/ 16 USE WITH PEN INSULIN SQ [...] mg c apsule take 1 capsule by [facility] every eight hours Lyrica 100 MG 1 [...] every 6 hrs for 7 days ANIYAH: [id number] September, Active triamcinolone acetonide 0.001 mg/mg topical [...] Start: 11-11-2022 Durolane Oct, 60 mg nystatin [id number] unt/ml topical cream (1 source) Polyene Antifungal [...] disease (4 sources) Atherosclerotic heart disease of [place] coronary artery without angina pectoris; Translations: [Unstable [...] sources) Long-term current use of insulin; Translations: [bed bug exterminator (current) use of insulin] Episodic Other aftercare (9 sources) H/O: high risk medication; Translations: [Other bed bug exterminator (current) drug therapy] Episodic Other diseases of [...] 02-11-2022 Episodic Other aftercare (1 source) Other bed bug exterminator (current) drug therapy; Translations: [OTH DETENTION CURRENT DRUG THERAPY] Onset: 09-10-2021 Episodic Other aftercare (1 source) correction (current) use of insulin; Translations: [DETENTION CURRENT USE OF INSULIN] Onset: 09-10-2021 Episodic [...] Range Facility Office Visiton 12-18-2023 Follow-up visit [id number] On License Of [facility] D 1970 F Date Provider Department Center 12/18/2023 REBECA ANDRES Family History Problem Relation Age of Onset Angina Mother Heart attack Mother Heart attack Maternal Grandfather Family Status - Relation Status Age at Mother Maternal Grandfather Level of Service:84271 ND OFFICE/OUTPATIENT ESTABLISHED MOD MDM 30 MIN [facility] 36on 11-26-2023 36 Rx sent to patient's pharmacy per her request. [facility] 36on 11-24-2023 36 Patient called back and said a lady at her pharmacy told her about Nexletol (bempedoic acid). Can I send RX for that? I told her if it was too pricey for her we could then try injections. Please advise. Thanks. [facility] 36 Regarding lab results from 11/24/2023: MD Theresa Howell MA Please prescribe Repatha or Praluent - whichever is covered by insurance Thanks for patient on her VM asking her to return my call. [facility] Office Visiton 11-03-2023 Follow-up [id number] [facility] 1970 Provider Department Center 11/03/2023 REBECA ANDRES Family History Problem Relation Age of Onset Angina Mother Heart attack Mother Heart attack Maternal Grandfather Family Status - Relation Status Age at Mother Maternal Grandfather Level of Service:05975 ND OFFICE/OUTPATIENT NEW MODERATE MDM 45 MINUTES [facility] Erythrocyte distribution wid th Auto (RBC) [Ratio]on 10-08-2023 Erythrocyte distribution width (RBC) [Ratio] 13.1 % 11.0-15.0 [facility] Estimated glomerular filtrat ion rate (GFR) non- Americanon 10-08-2023 GFR/1.73 sq M.predicted among non-blacks MDRD (S/P/Bld) [Vol rate/Area] 44 mL/min/{1.73_m2} >=60 [facility] Hematocrit Auto (Bld) [Volum e fraction]on 10-08-2023 Hematocrit (Bld) [Volume fraction] 43.0 % 36.0-48.0 [facility] Hemoglobin [Mass/volume] in Bloodon 10-08-2023 Hemoglobin (Bld) [Mass/Vol] 14.1 g/dL 12.0-16.0 [facility] Laboratory - Chemistry and C hemistry - challengeon 10-08-2023 Albumin [Mass/Vol] 3.5 g/dL 3.4-5.0 [facility] Calcium [Mass/Vol] 9.7 mg/dL 8.5-10.1 [facility] Chloride [Moles/Vol] 96 mmol/L 98-107 [facility] CO2 [Moles/Vol] 18.7 mmol/L 21.0-32.0 [facility] Creatinine [Mass/Vol] 1.25 mg/dL 0.55-1.02 [facility] GFR/1.73 sq M.predicted MDRD (S/P/Bld) [Vol rate/Area] 54 mL/min/{1.73_m2} >=60 [facility] Glucose [Mass/Vol] 472 mg/dL 74-106 [facility] Magnesium [Mass/Vol] 2.1 mg/dL 1.8-2.4 [facility] Potassium [Moles/Vol] 4.3 mmol/L 3.5-5.1 [facility] Sodium [Moles/Vol] 135 mmol/L 136-145 [facility] Urate [Mass/Vol] 13.4 mg/dL 2.6-6.0 [facility] Urea nitrogen [Mass/Vol] 19.0 mg/dL 7.0-18.0 [facility] Urea nitrogen/Creatinine [Mass ratio] 15.2 mg/mg [facility] Laboratory - Urinalysison Protein (U) [Mass/Vol] 36.5 mg/dL <=11.9 [facility] Leukocytes [#/volume] correc will for nucleated erythrocytes in Blood by Automated counon 10-08-2023 WBC corrected for nucl RBC Auto (Bld) [#/Vol] 4.9 10 3/uL 4.0-11.0 [facility] MCH Auto (RBC) [Entitic mass ]on 10-08-2023 MCH (RBC) [Entitic mass] 30.7 pg 26.7-34.0 [facility] MCHC Auto (RBC) [Mass/Vol]on 10-08-2023 MCHC (RBC) [Mass/Vol] 32.8 g/dL 29.9-35.2 [facility] MCV Auto (RBC) [Entitic vol] on 10-08-2023 MCV (RBC) [Entitic vol] 93.7 fL 81.0-99.0 [facility] No Panel Informationon 10-07 25-Hydroxy Vitamin D Total 108.3 ng/mL [facility] Comment on above: <20 ng/mL Vit D defi cient20-<30 ng/mL Vit D vxeioejeveyz85-905 ng/mL Vit D sufficient>100 ng/mL Potential Toxicity Parathyroid Hormone (Intact) 8 pg/mL 15-65 [facility] Comment on above: Performed at: [facility] [employer] [address] [id number] Director: Godwin Menjivar PhD, Phone: [phone] Phosphorus Level 3.6 mg/dL 2.6-4.7 [facility] Urine Random Creatinine 38.95 mg/dL 20.00-300.0 0 [facility] Platelet mean volume Auto (B ld) [Entitic vol]on 10-08-2023 Platelet mean volume (Bld) [Entitic vol] 13.0 fL 9.5-13.5 [facility] Platelets Auto (Bld) [#/Vol] on 10-08-2023 Platelets (Bld) [#/Vol] 144 10 3/uL 150-450 [facility] RBC Auto (Bld) [#/Vol]on RBC (Bld) [#/Vol] 4.59 10 6/uL 4.20-5.40 [facility] Serum or plasma anion gap de terminationon 10-08-2023 Anion gap [Moles/Vol] 24.6 mmol/L [facility] Urine protein/creatinine rat ioon 10-08-2023 Protein/Creatinine (U) [Ratio] 0.94 [facility] EGDon 09-03-2023 [facility] Dylan 09-03-2023 L Specimen: [id number] Received: 09/03/23 Status: CATHIEFrantz Aldana Num: [id number] Spec Type: Surgical Subm Dr: Antonio Boo DO Tissues: A Gastric Biopsy (ANTRUM) Procedures: HE/2, Gross/Micro L4 Age/ Patient Sex Location Account Attending Physician On [facility]Authumn D 53/F LABELL [id number] Antonio Boo DO SPEC NUM: [id number] RECD: 09/03/23 STATUS: TIEN MILTON NUM: [id number] KEVIN: 09/03/[address]: Antonio Boo DO ENTERED: 09/03/23 [facility] DR: Sunshine Marin SPEC TYPE: Surgical [...] each. Totally submitted in cassette A1. Specimen: [id number] Received: 09/03/23 Status: TIEN Aldana Num: [id number] Spec Type: Surgical Subm Dr: Antonio Boo DO Tissues: A Gastric Biopsy (ANTRUM) Procedures: Malena VILA/Shikha L4 [id number] (Continued) Specimen: [id number] Received: 09/03/23 (Continued) Signed (signature on file) Eder Mckinney MD 09/06/231849 Specimen: [id number] Received: 09/03/23 Status: TIEN Aldana Num: [id number] Spec Type: Surgical Subm Dr: Antonio Boo DO Tissues: A Gastric Biopsy (ANTRUM) Procedures: Malena VILA/Shikha L4 Patient: Mary Jane Schaeffer [id number] (Continued) Specimen: [id number] Received: 09/03/23 (Continued) CPT Codes 84762 Specimen: [id number] Received: 09/03/23 Status: TIEN Aldana Num: [id number] Spec Type: Surgical Subm Dr: Antonio Boo DO Tissues: A Gastric Biopsy (ANTRUM) Procedures: HE/2, Gross/Micro L4 Patient: Mary Jane Schaeffer [id number] (Continued) Signed (signature on file) Eder Mckinney MD 09/06/23 9318 [facility] POCT Rehab GlucoseOrdered By : Jeni Bonilla on 09-03-[address] [facility] [address] BRAIN WO CONTon CT BRAIN [...] Antonio Elizondo on 08/14/2023 5:19 PM Normal [facility] CT CERVICAL SPINE WO CONTon 08-14-2023 CT [...] Og MD on 08/14/2023 5:30 PM Normal [facility] Albumin [Mass/volume] in Ser um or Plasma by Bromocresol green (BCG) dye binding methoOrdered By: Anila Granados on 04-30-2023 Albumin BCG dye [Mass/Vol] 3.8 g/dL 3.5-5.7 [facility] Automated erythrocytes count in urine sediment (number/area)Ordered By: Anila Granados on 04-30-2023 RBC Auto (Urine sed) [#/Area] 5-9 [HPF] 0-4 [facility] Automated leukocytes count i n urine sediment (number/area)Ordered By: Anila Granados on 04-30-2023 WBC Auto (Urine sed) [#/Area] 1-2 [HPF] 0-4 [facility] Bilirubin Test strip Ql (U)O rdered By: Anila Granados on 04-30-2023 Bilirubin Ql (U) Negative Negative [facility] Calcium [Mass/volume] in Ser um or PlasmaOrdered By: Anila Granados on 04-30-2023 Calcium [Mass/Vol] 9.1 mg/dL 8.6-10.3 [facility] Carbon dioxide, total [Moles /volume] in Serum or PlasmaOrdered By: Anila Granados on 04-30-2023 CO2 [Moles/Vol] 31.5 mmol/L 21.0-31.0 [facility] Chloride [Moles/volume] in S faviola or PlasmaOrdered By: Anila Granados on 04-30-2023 Chloride [Moles/Vol] 102 mmol/L 98-107 [facility] Color Auto (U)Ordered By: Ab garcia Granados on 04-30-2023 Color (U) Yellow Yellow [facility] Creatinine [Mass/volume] in Serum or PlasmaOrdered By: Anila Granados on 04-30-2023 Creatinine [Mass/Vol] 1.53 mg/dL 0.60-1.20 [facility] Creatinine [Mass/volume] in UrineOrdered By: Anila Granados on 04-30-2023 Creatinine (U) [Mass/Vol] 34.0 mg/dL 11.0-20.0 [facility] Dipstick and Microscopicon 1 06-30-2022 Appearance (U) Clear Normal Clear [facility] Comment on above: Order Comment: Reaso n for Exam Chronic kidney disease, stage III (moderate);Disorders of fl Name Collection Type:: Clean-Voided Midstream Performed By: #### A DDONUAPLUS #### [facility] [address] [place] [address] [place] Bacteria,Urine None Seen Normal None Seen [facility] Comment on above: Order Comment: Reaso n for Exam Chronic kidney disease, stage III (moderate);Disorders of fl Name Collection Type:: Clean-Voided Midstream Performed By: #### A DDONUAPLUS #### [facility] [address] [id number] [place] Bilirubin,Urine Negative Normal Negative [facility] Comment on above: Order Comment: Reaso n for Exam Chronic kidney disease, stage III (moderate);Disorders of fl Name Collection Type:: Clean-Voided Midstream Performed By: #### A DDONUAPLUS #### [facility] [address] [id number] [place] Color (U) Yellow Normal Yellow [facility] Comment on above: Order Comment: Reaso n for Exam Chronic kidney disease, stage III (moderate);Disorders of fl Name Collection Type:: Clean-Voided Midstream Performed By: #### A DDONUAPLUS #### [address] Glucose Ql (U) Normal Normal Normal [facility] Comment on above: Order Comment: Reaso n for Exam Chronic kidney disease, stage III (moderate);Disorders of fl Name Collection Type:: Clean-Voided Midstream Performed By: #### A DDONUAPLUS #### [address] Hyaline Casts,Urine None Seen Normal 0-8 [facility] Comment on above: Order Comment: Reaso n for Exam Chronic kidney disease, stage III (moderate);Disorders of fl Name Collection Type:: Clean-Voided Midstream Result Comment: PERF ORMED BY: [place] [address] PATHOLOGIST SENIOR INSIGHT MANAGER [employer] MEERA GRIFFITHS M.D. Performed By: #### A DDONUAPLUS #### [place] [address] [place] Ketones Ql (U) Negative Normal Negative [facility] Comment on above: Order Comment: Reaso n for Exam Chronic kidney disease, stage III (moderate);Disorders of fl Name Collection Type:: Clean-Voided Midstream Performed By: #### A DDONUAPLUS #### [address] Leukocyte esterase Test strip Ql (U) 1+ High Negative [facility] Comment on above: Order Comment: Reaso n for Exam Chronic kidney disease, stage III (moderate);Disorders of fl Name Collection Type:: Clean-Voided Midstream Performed By: #### A DDONUAPLUS #### [place] [address] [place] Nitrite,Urine Negative Normal Negative [facility] Comment on above: Order Comment: Reaso n for Exam Chronic kidney disease, stage III (moderate);Disorders of fl Name Collection Type:: Clean-Voided Midstream Performed By: #### A DDONUAPLUS #### [address] [address] [place] Occult Blood,Urine Negative Normal Negative [facility] Comment on above: Order Comment: Reaso n for Exam Chronic kidney disease, stage III (moderate);Disorders of fl Name Collection Type:: Clean-Voided Midstream Performed By: #### A DDONUAPLUS #### [facility] [address] [place] [address] pH (U) 6.5 [pH] Normal 5.0-9.0 [facility] Comment on above: Order Comment: Reaso n for Exam Chronic kidney disease, stage III (moderate);Disorders of fl Name Collection Type:: Clean-Voided Midstream Performed By: #### A DDONUAPLUS #### [facility] [address] [place] [address] Protein,Urine Negative Normal Negative [facility] Comment on above: Order Comment: Reaso n for Exam Chronic kidney disease, stage III (moderate);Disorders of fl Name Collection Type:: Clean-Voided Midstream Performed By: #### A DDONUAPLUS #### [facility] [address] [place] [address] RBC,Urine 5-9 High 0-4 [facility] Comment on above: Order Comment: Reaso n for Exam Chronic kidney disease, stage III (moderate);Disorders of fl Name Collection Type:: Clean-Voided Midstream Performed By: #### A DDONUAPLUS #### [facility] [address] [place] [address] [place] Specificy [place],Urine 1.010 Normal 1.001-1.030 [facility] Comment on above: Order Comment: Reaso n for Exam Chronic kidney disease, stage III (moderate);Disorders of fl Name Collection Type:: Clean-Voided Midstream Performed By: #### A DDONUAPLUS #### [facility] [address] [place] [address] [place] Squamous Epithelial Cell,Urine 0-1 Normal 0-2 [facility] Comment on above: Order Comment: Reaso n for Exam Chronic kidney disease, stage III (moderate);Disorders of fl Name Collection Type:: Clean-Voided Midstream Performed By: #### A DDONUAPLUS #### [facility] [address] Urobilinogen,Urine Normal Normal Normal [facility] Comment on above: Order Comment: Reaso n for Exam Chronic kidney disease, stage III (moderate);Disorders of fl Name Collection Type:: Clean-Voided Midstream Performed By: #### A DDONUAPLUS #### [facility] [address] WBC,Urine 1-2 Normal 0-4 [facility] Comment on above: Order Comment: Reaso n for Exam Chronic kidney disease, stage III (moderate);Disorders of fl Name Collection Type:: Clean-Voided Midstream Performed By: #### A DDONUAPLUS #### [facility] [address] Erythrocyte distribution wid th Auto (RBC) [Ratio]Ordered By: Anila Granados on 04-30-2023 Erythrocyte distribution width (RBC) [Ratio] 14.9 % 11.9-15.3 [facility] Glucose [Mass/volume] in Ser um or PlasmaOrdered By: Anila Granados on 04-30-2023 Glucose [Mass/Vol] 244 mg/dL 70-100 [facility] Comment on above: ADA recommended refe rence rangeRandom Glucose Reference Range is dependent on time and content of last meal. Glucose of more than 200 mg/dL in a nonstressed, ambulatory subject supports the diagnosis of Diabetes Mellitus. Hematocrit Auto (Bld) [Volum e fraction]Ordered By: Anila Granados on 04-30-2023 Hematocrit (Bld) [Volume fraction] 38.6 % 34.0-46.4 [facility] Hemoglobin [Mass/volume] in BloodOrdered By: Anila Granados on 04-30-2023 Hemoglobin (Bld) [Mass/Vol] 12.7 g/dL 11.8-15.4 [facility] Hemogram CBC Without Diffon 04-30-2023 Erythrocyte distribution width (RBC) [Ratio] 14.9 % Normal 11.9-15.3 [facility] Comment on above: Order Comment: Reaso n for Exam Chronic kidney disease, stage III (moderate);Disorders of fl Performed By: #### C BCNO #### [address] Hematocrit (Bld) [Volume fraction] 38.6 % Normal 34.0-46.4 [facility] Comment on above: Order Comment: Reaso n for Exam Chronic kidney disease, stage III (moderate);Disorders of fl Performed By: #### C BCNO #### [address] Hemoglobin (Bld) [Mass/Vol] 12.7 g/dL Normal 11.8-15.4 [facility] Comment on above: Order Comment: Reaso n for Exam Chronic kidney disease, stage III (moderate);Disorders of fl Performed By: #### C BCNO #### [address] MCH (RBC) [Entitic mass] 31.6 pg Normal 24.7-34.3 [facility] Comment on above: Order Comment: Reaso n for Exam Chronic kidney disease, stage III (moderate);Disorders of fl Performed By: #### C BCNO #### [address] MCV (RBC) [Entitic vol] 96.3 fL Normal 80-100 F [facility] Comment on above: Order Comment: Reaso n for Exam Chronic kidney disease, stage III (moderate);Disorders of fl Performed By: #### C BCNO #### [address] Mean Corpuscular HGB Conc 32.8 g/dL Normal 32.0-35.0 [facility] Comment on above: Order Comment: Reaso n for Exam Chronic kidney disease, stage III (moderate);Disorders of fl Performed By: #### C BCNO #### [address] Platelet mean volume (Bld) [Entitic vol] 10.8 fL High 6.3-10.7 [facility] Comment on above: Order Comment: Reaso n for Exam Chronic kidney disease, stage III (moderate);Disorders of fl Result Comment: PERF ORMED BY: [place] [address] PATHOLOGIST SENIOR INSIGHT MANAGER [employer] MEERA GRIFFITHS M.D. Performed By: #### C BCNO #### [facility] [address] Platelets (Bld) [#/Vol] 164 10*3/uL Normal 150-450 [facility] Comment on above: Order Comment: Reaso n for Exam Chronic kidney disease, stage III (moderate);Disorders of fl Performed By: #### C BCNO #### [facility] [address] RBC (Bld) [#/Vol] 4.01 10*6/uL Normal 3.60-5.00 [facility] Comment on above: Order Comment: Reaso n for Exam Chronic kidney disease, stage III (moderate);Disorders of fl Performed By: #### C BCNO #### [facility] [address] WBC (Bld) [#/Vol] 5.2 10*3/uL Normal 3.8-11.6 [facility] Comment on above: Order Comment: Reaso n for Exam Chronic kidney disease, stage III (moderate);Disorders of fl Performed By: #### C BCNO #### [address] Ketones Auto test strip (U) [Mass/Vol]Ordered By: Anila Granados on 04-30-2023 Ketones (U) [Mass/Vol] Negative Negative [facility] - UrinalysisOrder ed By: Anila Granados on 04-30-2023 Hyaline casts LM Ql (Urine sed) None seen [LPF] 0-8 [facility] Leukocytes [#/volume] correc will for nucleated erythrocytes in Blood by Automated counOrdered By: Anila Granados on 04-30-2023 WBC corrected for nucl RBC Auto (Bld) [#/Vol] 5.2 10*3/uL 3.8-11.6 [facility] MCH Auto (RBC) [Entitic mass ]Ordered By: Anila Granados on 04-30-2023 MCH (RBC) [Entitic mass] 31.6 pg 24.7-34.3 [facility] MCHC Auto (RBC) [Mass/Vol]Or dered By: Anila Granados on 04-30-2023 MCHC (RBC) [Mass/Vol] 32.8 g/dL 32.0-35.0 [facility] MCV Auto (RBC) [Entitic vol] Ordered By: Anila Granados on 04-30-2023 MCV (RBC) [Entitic vol] 96.3 fL 80-100 F [facility] Magnesiumon 04-30-2023 Magnesium [Mass/Vol] 1.9 mg/dL Normal 1.9-2.7 [facility] Comment on above: Order Comment: Reaso n for Exam Chronic kidney disease, stage III (moderate);Disorders of fl Performed By: #### U FERNANDO, RENAL, MG, [id number] #### [address] Magnesium [Mass/volume] in S faviola or PlasmaOrdered By: Anila Granados on 04-30-2023 Magnesium [Mass/Vol] 1.9 mg/dL 1.9-2.7 [facility] Nitrite Test strip Ql (U)Ord ered By: Anila Granados on 04-30-2023 Nitrite Ql (U) Negative Negative [facility] No Panel InformationOrdered By: Anila Granados on 04-30-2023 Estimated GFR (CKD-EPI) 40.189 mL/Min [facility] Creatinine Clearance (Chem N/A [facility] Parathyrin.intact [Mass/volu me] in Serum or PlasmaOrdered By: Anila Granados on 04-30-2023 Parathyrin.intact [Mass/Vol] 19.7 pg/mL [facility] Parathyroid Hormone Intacton 04-30-2023 Parathyroid Hormone Intact 19.7 pg/mL Normal [facility] Comment on above: Order Comment: Reaso n for Exam Chronic kidney disease, stage III (moderate);Disorders of fl Result Comment: PERF ORMED BY: [place] [address] PATHOLOGIST SENIOR INSIGHT MA[employer]GER [employer] MEERA GRIFFITHS M.D. Performed By: #### P TH #### [facility] [address] [place] [address] Phosphate [Mass/volume] in S faviola or PlasmaOrdered By: Anila Jasmine on 04-30-2023 Phosphate [Mass/Vol] 4.1 mg/dL 2.5-4.5 [facility] Platelet mean volume Auto (B ld) [Entitic vol]Ordered By: Anila Jasmine on 04-30-2023 Platelet mean volume (Bld) [Entitic vol] 10.8 fL 6.3-10.7 [facility] Platelets Auto (Bld) [#/Vol] Ordered By: Anila Jasmine on 04-30-2023 Platelets (Bld) [#/Vol] 164 10*3/uL 150-450 [facility] Potassium [Moles/volume] in Serum or PlasmaOrdered By: Anila Jasmine on 04-30-2023 Potassium [Moles/Vol] 4.0 mmol/L 3.5-5.1 [facility] Protein Auto test strip (U) [Mass/Vol]Ordered By: Anila Sellersr on 04-30-2023 Protein (U) [Mass/Vol] Negative Negative [facility] Protein Creat Ratio Ur Rando mon 04-30-2023 Creatinine, Urine (Random) 34.0 mg/dL High 11.0-20.0 [facility] Comment on above: Order Comment: Reaso n for Exam Chronic kidney disease, stage III (moderate);Disorders of fl Performed By: #### P ROCRERAT #### [facility] [address] [place] [address] Protein (U) [Mass/Vol] 4 mg/dL Normal 0-9 [facility] Comment on above: Order Comment: Reaso n for Exam Chronic kidney disease, stage III (moderate);Disorders of fl Performed By: #### P ROCRERAT #### [facility] [address] [place] [address] [place] Urine Protein/Creatinine Ratio 118 mg/g{Cre} Normal 0-200 [facility] Comment on above: Order Comment: Reaso n for Exam Chronic kidney disease, stage III (moderate);Disorders of fl Result Comment: PERF ORMED BY: [place] [address] PATHOLOGIST SENIOR INSIGHT MANAGER [employer] MEERA GRIFFITHS M.D. Performed By: #### P ROCRERAT #### [facility] [address] [place] [address] Protein [Mass/volume] in Uri neOrdered By: Anila Jasmine on 04-30-2023 Protein (U) [Mass/Vol] 4 mg/dL 0-9 [facility] RBC Auto (Bld) [#/Vol]Ordere d By: Anila Jasmine on 04-30-2023 RBC (Bld) [#/Vol] 4.01 10*6/uL 3.60-5.00 [facility] Renal Function Panelon 04-30 Albumin [Mass/Vol] 3.8 g/dL Normal 3.5-5.7 [facility] Comment on above: Order Comment: Reaso n for Exam Chronic kidney disease, stage III (moderate);Disorders of fl Performed By: #### U FERNANDO, RENAL, MG, [id number] #### [address] Anion gap [Moles/Vol] 12.5 mmol/L Normal 6.0-15.0 [facility] Comment on above: Order Comment: Reaso n for Exam Chronic kidney disease, stage III (moderate);Disorders of fl Performed By: #### U FERNANDO, RENAL, MG, [id number] #### [facility] [address] [place] [address] [place] Calcium [Mass/Vol] 9.1 mg/dL Normal 8.6-10.3 [facility] Comment on above: Order Comment: Reaso n for Exam Chronic kidney disease, stage III (moderate);Disorders of fl Performed By: #### U FERNANDO, RENAL, MG, [id number] #### [facility] [address] [place] [address] [place] Chloride [Moles/Vol] 102 mmol/L Normal 98-107 [facility] Comment on above: Order Comment: Reaso n for Exam Chronic kidney disease, stage III (moderate);Disorders of fl Performed By: #### U FERNANDO, RENAL, MG, [id number] #### [facility] [address] [place] [address] [place] CO2 [Moles/Vol] 31.5 mmol/L High 21.0-31.0 [facility] Comment on above: Order Comment: Reaso n for Exam Chronic kidney disease, stage III (moderate);Disorders of fl Performed By: #### U FERNANDO, RENAL, MG, [id number] #### [facility] [address] Creatinine [Mass/Vol] 1.53 mg/dL High 0.60-1.20 [facility] Comment on above: Order Comment: Reaso n for Exam Chronic kidney disease, stage III (moderate);Disorders of fl Performed By: #### U FERNANDO, RENAL, MG, [id number] #### [facility] [address] [place] [address] [place] GFR/1.73 sq M.predicted MDRD (S/P/Bld) [Vol rate/Area] 40.189 mL/min/{1.73_m2} Normal [facility] Comment on above: Order Comment: Reaso n for Exam Chronic kidney disease, stage III (moderate);Disorders of fl Performed By: #### U FERNANDO, RENAL, MG, [id number] #### [facility] [address] [place] [id number] [place] Glucose [Mass/Vol] 244 mg/dL High 70-100 [facility] Comment on above: Order Comment: Reaso n for Exam Chronic kidney disease, stage III (moderate);Disorders of fl Result Comment: [place] Glucose Reference Range is dependent on time and content of last meal. Glucose of more than 200 mg/dL in a nonstressed, ambulatory subject supports the diagnosis of Diabetes Mellitus. ADA recommended reference range Performed By: #### U FERNANDO, RENAL, MG, [id number] #### [facility] [address] Phosphate [Mass/Vol] 4.1 mg/dL Normal 2.5-4.5 [facility] Comment on above: Order Comment: Reaso n for Exam Chronic kidney disease, stage III (moderate);Disorders of fl Performed By: #### U FERNANDO, RENAL, MG, [id number] #### [facility] [address] [place] [address] Potassium [Moles/Vol] 4.0 mmol/L Normal 3.5-5.1 [facility] Comment on above: Order Comment: Reaso n for Exam Chronic kidney disease, stage III (moderate);Disorders of fl Performed By: #### U FERNANDO, RENAL, MG, [id number] #### [address] Sodium [Moles/Vol] 142 mmol/L Normal 136-145 [facility] Comment on above: Order Comment: Reaso n for Exam Chronic kidney disease, stage III (moderate);Disorders of fl Performed By: #### U FERNANDO, RENAL, MG, [id number] #### [address] Urea nitrogen [Mass/Vol] 46 mg/dL High 7-25 [facility] Comment on above: Order Comment: Reaso n for Exam Chronic kidney disease, stage III (moderate);Disorders of fl Performed By: #### U FERNANDO, RENAL, MG, [id number] #### [address] Serum or plasma anion gap de terminationOrdered By: Anila Granados on 04-30-2023 Anion gap [Moles/Vol] 12.5 mmol/L 6.0-15.0 [facility] Sodium [Moles/volume] in Ser um or PlasmaOrdered By: Anila Granados on 04-30-2023 Sodium [Moles/Vol] 142 mmol/L 136-145 [facility] Specific gravity Auto test s trip (U) [Rel density]Ordered By: Anila Granados on 04-30-2023 Specific gravity (U) [Rel density] 1.010 1.001-1.030 [facility] Squamous epithelial cells de tection in urine sediment by light microscopyOrdered By: Anila Granados on 04-30-2023 Epithelial cells.squamous LM Ql (Urine sed) 0-1 [HPF] 0-2 [facility] Urate [Mass/volume] in Serum or PlasmaOrdered By: Anila Granados on 04-30-2023 Urate [Mass/Vol] 5.8 mg/dL 2.3-6.6 [facility] Urea nitrogen [Mass/volume] in Serum or PlasmaOrdered By: Anila Granados on 04-30-2023 Urea nitrogen [Mass/Vol] 46 mg/dL 7-25 [facility] Uric Acidon 04-30-2023 Urate [Mass/Vol] 5.8 mg/dL Normal 2.3-6.6 [facility] Comment on above: Order Comment: Reaso n for Exam Chronic kidney disease, stage III (moderate);Disorders of fl Performed By: #### U FERNANDO, RENAL, MG, [id number] #### [facility] [address] Urine bacteria detection by automated methodOrdered By: Anila Granados on 04-30-2023 Bacteria Auto Ql (U) None seen None Seen [facility] Urine clarity by refractomet ry automatedOrdered By: Anila Granados on 04-30-2023 Clarity Refractometry automated (U) Clear Clear [facility] Urine glucose measurement by automated test strip (mass/volume)Ordered By: Anila Granados on 04-30-2023 Glucose Auto test strip (U) [Mass/Vol] Normal mg/dL Normal [facility] Urine hemoglobin detection b y automated test stripOrdered By: Anila Granados on 04-30-2023 Hemoglobin Auto test strip Ql (U) Negative Negative [facility] Urine leukocyte esterase det ection by automated test stripOrdered By: Anila Granados on 04-30-2023 Leukocyte esterase Auto test strip Ql (U) 1+ Negative [facility] Urine protein/creatinine rat ioOrdered By: Anila Granados on 04-30-2023 Protein/Creatinine (U) [Ratio] 118 mg/g{Cre} 0-200 [facility] Urobilinogen Auto test strip (U) [Mass/Vol]Ordered By: Anila Granados on 04-30-2023 Urobilinogen (U) [Mass/Vol] Normal mg/dL Normal [facility] Vitamin D 25 Hydroxy Totalon 04-30-2023 Vitamin D 25 Hydroxy Total 68.6 ng/mL Normal 30-100 [facility] Comment [...] practice guideline. JCEM. 2010; 96(7):1911-30. PERFORMED BY: [place] [address] PATHOLOGIST SENIOR INSIGHT MANAGER [employer] MEERA GRIFFITHS M.D. Performed By: #### U FERNANDO, RENAL, MG, [id number] #### [address] Vitamin D+Metabolites [Mass/ volume] in Serum or PlasmaOrdered By: Anila Granados on 04-30-2023 Vitamin D+Metabolites [Mass/Vol] 68.6 ng/mL 30-100 [facility] Comment on above: VITAMIN D STATUS 25( [place])VITAMIN D RANGE (ng/mL) Deficient <20 Insufficient 20 to <30Sufficient 30 to 100Reference: Milo Braxton, Adrián TELLEZ, et al. Evaluation,treatment, and prevention of vitamin D deficiency; an Endocrine Society clinical practice guideline. JCEM. 2010; 96(7):1911-30. pH Auto test strip (U)Ordere d By: Anila Granados on 04-30-2023 pH (U) 6.5 [pH] 5.0-9.0 [facility] XR knee LT 2Von 09-23-2022 XR knee LT 2V [facility] [place] [address] [place] [address] XRay Report Signed Patient: Mary Jane Schaeffer MR#: [id number] : 1970 Acct:[id number] Age/Sex: 52 / F ADM Date: 09/23/22 Loc: [facility] [place]: Type: [facility] Attending Dr: Arthur Moy MD Copies [...] Kim Coleman M.D.09/23/2022 5:10 PM Dictation Location: [place] [address] Transcribed By: BRITT 09/23/221709 Dictated By: Kim Coleman MD 09/23/22 1708 Signed By: 09/23/22 1710 Normal [facility] PTH INTACTon 08-14-2022 PTH, Intact 12 pg/mL Critically low 15-65 [facility] Comment on above: Performed By: #### I NSULIN #### [facility] [address] [place] [address] [address] Jose Mckinney HEMOGRAM AND PLATELon 2022 Hematocrit (Bld) [Volume fraction] 38.7 % Normal 36.0-48.0 [facility] Comment on above: Performed By: #### U RTPCR #### [facility] [address] [place] [address] Dr. Jose Mckinney Hemoglobin (Bld) [Mass/Vol] 12.7 g/dL Normal 12.0-16.0 [facility] Comment on above: Performed By: #### U RTPCR #### [facility] [address] [place] [address] Dr. Jose Mckinney MCH (RBC) [Entitic mass] 30.5 pg Normal 26.7-34.0 [facility] Comment on above: Performed By: #### U RTPCR #### [facility] [address] [place] [address] Dr. Jose Mckinney MCHC (RBC) [Mass/Vol] 32.8 g/dL Normal 29.9-35.2 [facility] Comment on above: Performed By: #### U RTPCR #### [facility] [address] [place] [address] Dr. Jose Mckinney MCV (RBC) [Entitic vol] 92.8 fL Normal 81.0-99.0 [facility] Comment on above: Performed By: #### U RTPCR #### [facility] [address] [place] [address] Dr. Jose Mckinney PLT 223 103/ul Normal 150-450 [facility] Comment on above: Performed By: #### U RTPCR #### [facility] [address] [place] [address] Dr. Jose Mckinney RBC 4.17 106/ul Critically low 4.20-5.40 [facility] Comment on above: Performed By: #### U RTPCR #### [facility] [address] [place] [address] Dr. Jose Mckinney WBC 7.0 103/ul Normal 4.0-11.0 [facility] Comment on above: Performed By: #### U RTPCR #### [facility] [address] [place] [address] Dr. Jose Mckinney MAGNESIUMon 08-13-2022 Magnesium [Mass/Vol] 1.9 mg/dL Normal 1.8-2.4 [facility] Comment on above: Performed By: #### U FERNANDO, RENAL, MG #### [facility] [address] [place] [address] [address] Jose Mckinney RENAL FUNCTION PANELon 08-13 Albumin [Mass/Vol] 3.6 g/dL Normal 3.4-5.0 [facility] Comment on above: Performed By: #### U FERNANDO, RENAL, MG #### [facility] [address] [place] [address] Dr. Jose Mckineny Calcium [Mass/Vol] 9.3 mg/dL Normal 8.5-10.1 [facility] Comment on above: Performed By: #### U FERNANDO, RENAL, MG #### [facility] [address] [place] [address] Dr. Jose Mckinney Chloride [Moles/Vol] 104 mmol/L Normal 98-107 [facility] Comment on above: Performed By: #### U FERNANDO, RENAL, MG #### [facility] [address] [place] [address] Dr. Jose Mckinney CO2 [Moles/Vol] 28.3 mmol/L Normal 21.0-32.0 [facility] Comment on above: Performed By: #### U FERNANDO, RENAL, MG #### [facility] [address] [place] [address] Dr. Jose Mckinney Creatinine [Mass/Vol] 1.34 mg/dL Critically high 0.55-1.02 [facility] Comment on above: Performed By: #### U FERNANDO, RENAL, MG #### [facility] [address] [place] [address] Dr. Jose Mckinney EGFR-AF IRAQI 50 mL/min/1.73m2 Critically low >=60 [facility] Comment on above: Performed By: #### U FERNANDO, RENAL, MG #### [facility] [address] [place] [address] Dr. Jose Mckinney EGFR-NON AF IRAQI 41 mL/min/1.73m2 Critically low >=60 [facility] Comment on above: Performed By: #### U FERNANDO, RENAL, MG #### [facility] [address] [place] [address] [address] Jose Mckinney Glucose [Mass/Vol] 226 mg/dL Critically high 74-106 [facility] Comment on above: Performed By: #### U FERNANDO, RENAL, MG #### [facility] [address] [place] [address] [address] Jose Mckinney Phosphate [Mass/Vol] 4.6 mg/dL Normal 2.6-4.7 [facility] Comment on above: Performed By: #### U FERNANDO, RENAL, MG #### [facility] [address] [place] [address] Dr. Jose Mckinney Potassium [Moles/Vol] 4.4 mmol/L Normal 3.5-5.1 [facility] Comment on above: Performed By: #### U FERNANDO, RENAL, MG #### [facility] [address] [place] [address] Dr. Jose Mckinney Sodium [Moles/Vol] 138 mmol/L Normal 136-145 [facility] Comment on above: Performed By: #### U FERNANDO, RENAL, MG #### [facility] [address] [place] [address] [address] Jose Mckinney Urea nitrogen [Mass/Vol] 27.0 mg/dL Critically high 7.0-18 .0 [facility] Comment on above: Performed By: #### U FERNANDO, RENAL, MG #### [facility] [address] [place] [address] [address] Jose Mckinney UA RANDOM W/MICROSCOPICon BACTERIA NONE SEEN Normal NONE SEEN [facility] Comment on above: Performed By: #### U AMIC #### [facility] [address] [place] [address] [address] Jose Mckinney Bilirubin Ql (U) Negative Normal NEGATIVE [facility] Comment on above: Performed By: #### U AMIC #### [facility] [address] [place] [address] Dr. Jose Mckinney CAST NONE SEEN Normal NONE SEEN [facility] Comment on above: Performed By: #### U AMIC #### [facility] [address] [place] [address] [address] Jose Mckinney Clarity (U) CLEAR Normal CLEAR [facility] Comment on above: Performed By: #### U AMIC #### [facility] [address] [place] [address] Dr. Jose Mckinney Color (U) YELLOW Normal YELLOW [facility] Comment on above: Performed By: #### U AMIC #### [facility] [address] [place] [address] [address] Jose Mckinney Crystals LM Nom (Urine sed) NONE SEEN Normal NONE SEEN [facility] Comment on above: Performed By: #### U AMIC #### [facility] [address] [place] [address] Dr. Jose Mckinney Epithelial cells LM Ql (Urine sed) NONE SEEN Normal NONE SEEN /RARE [facility] Comment on above: Performed By: #### U AMIC #### [facility] [address] [place] [address] Dr. Jose Mckinney Glucose Ql (U) 250 mg/dl Abnormal NEGATIVE [facility] Comment on above: Performed By: #### U AMIC #### [facility] [address] [place] [address] Dr. Jose Mckinney Hemoglobin Ql (U) Negative Normal NEGATIVE [facility] Comment on above: Performed By: #### U AMIC #### [facility] [address] [place] [address] Dr. Jose Mckinney Ketones Ql (U) Negative Normal NEGATIVE [facility] Comment on above: Performed By: #### U AMIC #### [facility] [address] [place] [address] Dr. Jose Mckinney LEUKOCYTES Negative Normal NEGATIVE [facility] Comment on above: Performed By: #### U AMIC #### [facility] [address] [place] [address] Dr. Jose Mckinney MUCOUS NONE SEEN Normal NONE SEEN [facility] [place] [facility] Comment on above: Performed By: #### U AMIC #### [facility] [address] [place] [address] Dr. Jose Mckinney Nitrite Ql (U) Negative Normal NEGATIVE [facility] [place] [facility] Comment on above: Performed By: #### U AMIC #### [facility] [address] [place] [address] Dr. Jose Mckinney pH (U) 6.5 [pH] Normal 5-9 [facility] [place] [facility] Comment on above: Performed By: #### U AMIC #### [facility] [address] [address] [address] Jose Mckinney RBC 0-2 Normal 0-2 [facility] [place] [facility] Comment on above: Performed By: #### U AMIC #### [facility] [address] [place] [address] Dr. Jose Mckinney SPEC GRAVITY 1.020 Normal 1.005-<=1.02 5 [facility] [place] [facility] Comment on above: Performed By: #### U AMIC #### [facility] [address] [place] [address] Dr. Jose Mckinney UA PROTEIN Negative Normal NEGATIVE/ TRACE [facility] Comment on above: Performed By: #### U AMIC #### [facility] [address] [place] [address] Dr. Jose Mckinney Urobilinogen Qn (U) 0.2 {Betsy'U}/dL Normal 0.2 - 1. 0 [facility] [place] [facility] Comment on above: Performed By: #### U AMIC #### [facility] [address] [place] [address] Dr. Jose Mckinney WBC NONE SEEN Normal NONE SEEN [facility] Comment on above: Performed By: #### U AMIC #### [facility] [address] [place] [address] Dr. Jose Mckinney URIC ACID SERUMon 08-13-2022 Urate [Mass/Vol] 4.1 mg/dL Normal 2.6-6.0 [facility] Comment on above: Performed By: #### U FERNANDO, RENAL, MG #### [facility] [address] [place] [address] Dr. Jose Mckinney URINE T PROTEIN CREAT RATIOo n 08-13-2022 Protein (U) [Mass/Vol] 13.5 mg/dL Critically high <=12.0 [facility] [place] [facility] Comment on above: Performed By: #### U RTPCR #### [facility] [address] [place] [address] Dr. Jose Mckinney UR PROT CREAT RAT 0.16 Normal [facility] Comment on above: Performed By: #### U RTPCR #### [facility] [address] [place] [address] Dr. Jose Mckinney URINE CREAT 83.00 mg/dL Normal 20.00-300.00 [facility] Comment on above: Performed By: #### U RTPCR #### [facility] [address] [place] [address] Dr. Jose Mckinney VITAMIN D 25 OHon 08-13-2022 VIT D 25-OH 54.4 ng/mL Normal [facility] [place] [facility] Comment on above: Performed By: #### C BC #### [facility] [address] [place] [address] Dr. Jose Mckinney VIT D RANGES SEE BELOW Normal [facility] [place] [facility] Comment on above: Result Comment: <20 ng/mL Vit D deficient 20 - <30 ng/mL Vit D insufficient 30 - 100 ng/mL Vit D sufficient >100 ng/mL Potential Toxicity Performed By: #### C BC #### [facility] [address] [place] [address] Dr. Jose Mckinney [facility]02 SARS-CoV-2 (COVID-19) RNA CHILO+probe Ql (Unsp spec) Not detected Normal NOT DETECTED [facility] [place] [facility] Comment on above: Result Comment: This test is not yet approved or cleared by the [place] FDA. When there are no FDA-approved or cleared tests available, and other criteria are met, FDA can make tests available under an emergency access mechanism called an Emergency Use Authorization (EUA). The EUA for this test is supported by the Business Manager of Health and Human Service's (HHS's) declaration [...] SARS-CoV-2. Performed By: #### C BC #### [facility] [address] [place] [address] Dr. Jose Mckinney INFLUENZA A AND B AGon 05-13 INFLUANE SEE BELOW Normal [facility] [place] [facility] Comment on above: Result Comment: Nega tive for Flu A protein angiten. Infection due to Flu A cannot be ruled out. Flu A angiten in the sample may be below the detection limit of the test. Performed By: #### C BC #### [facility] [address] [place] [address] Dr. Jose Mckinney INFLUBNTRIOS HEALTH SEE BELOW Normal [facility] [place] [facility] Comment on above: Result Comment: Nega tive for Flu B protein antigen. Infection due to Flu B cannot be ruled out. Flu B antigen in the sample may be below the detection limit of the test. Performed By: #### C BC #### [facility] [address] [place] [address] Dr. Jose Mckinney INFLUENZA A AG Negative Normal NEGATIVE SEE COMMENT [facility] [place] [facility] Comment on above: Performed By: #### C BC #### [facility] [address] [place] [address] Dr. Jose Mckinney INFLUENZA B AG Negative Normal NEGATIVE SEE COMMENT [facility] Comment on above: Performed By: #### C BC #### [facility] [address] [place] [address] Dr. Jose Mckinney INTERNAL CONTROLS Within Normal Limits Normal Wi thin Normal Limits [facility] Comment on above: Performed By: #### C BC #### [facility] [address] [place] [address] Dr. Jose Mckinney INSULINon 02-07-2022 Insulin 191.0 uIU/mL Critically high 2.6-24.9 [facility] Comment on above: Performed By: #### I NSULIN #### [facility] [address] [place], [place] [address] Dr. Jose Mckinney PTH INTACTon 02-07-2022 PTH, Intact 13 pg/mL Critically low 15-65 [facility] Comment on above: Performed By: #### C BC #### [facility] [address] [address] [address] Jose Mckinney T4, T3U, FTI [facility]on 02-07 Free Thyroxine Index 2.3 Normal 1.2-4.9 [facility] [place] [facility] Comment on above: Performed By: #### C BC #### [facility] [address] [address] [address] Jose Mckinney T3 Uptake 23 % Critically low 24-39 [facility] Comment on above: Performed By: #### C BC #### [facility] [address] [address] [address] Jose Mckinney T4 [Mass/Vol] 10.2 ug/dL Normal 4.5-12.0 [facility] Comment on above: Performed By: #### C BC #### [facility] [address] [address] [address] Jose Mckinney VIT D 25-OH [facility] 2021 Vitamin D, 25-Hydroxy 43.3 ng/mL Normal 30.0-100.0 [facility] [place] [facility] Comment on above: Result Comment: Gayatri min D deficiency has been defined by the [place] [employer] and an Endocrine Society practice guideline as a level of serum 25-OH vitamin D less than 20 ng/mL (1,2). The Endocrine Society went on to further define vitamin D insufficiency as a level between 21 and 29 ng/mL (2). 1. IOM ([place] [employer]). 2010. Dietary reference intakes for calcium and D. [place]: The National Academies Press. 2. Amilcar JIMÉNEZ, [place], Adrián TELLEZ, et al. Evaluation, treatment, and prevention of vitamin D deficiency: an Endocrine Society clinical practice guideline. JCEM. 2010; 96(7):1911-30. Performed By: #### C BC #### [facility] [address] [address] [address] Jose Mckinney CBC AUTO DIFFon 02-06-2022 BASO # 0.0 103/ul Normal 0.0-0.1 [facility] [place] [facility] Comment on above: Performed By: #### U RTPCR #### [facility] [address] [place] [address] Dr. Jose Mckinney Basophils/100 WBC (Bld) 0.5 % Normal 0.2-2.0 [facility] Comment on above: Performed By: #### U RTPCR #### [facility] [address] [place] [address] Dr. Jose Mckinney EO # 0.5 103/ul Normal 0.0-0.7 [facility] [place] [facility] Comment on above: Performed By: #### U RTPCR #### [facility] [address] [place] [address] Dr. Jose Mckinney Eosinophils/100 WBC (Bld) 8.0 % Critically high 0.9-7.0 [facility] [place] [facility] Comment on above: Performed By: #### U RTPCR #### [facility] [address] [place] [address] Dr. Jose Mckinney Erythrocyte distribution width (RBC) [Ratio] 13.6 % Normal 11.0-15.0 [facility] [place] [facility] Comment on above: Performed By: #### U RTPCR #### [facility] [address] [place] [address] Dr. Jose Mckinney Hematocrit (Bld) [Volume fraction] 42.5 % Normal 36.0-48.0 [facility] [place] [facility] Comment on above: Performed By: #### U RTPCR #### [facility] [address] [place] [address] Dr. Jose Mckinney Hemoglobin (Bld) [Mass/Vol] 13.8 g/dL Normal 12.0-16.0 [facility] [place] [facility] Comment on above: Performed By: #### U RTPCR #### [facility] [address] [place] [address] Dr. Jose Mckinney IG # 0.02 10e3/ul Normal 0.00-0.03 [facility] [place] [facility] Comment on above: Performed By: #### U RTPCR #### [facility] [address] [place] [address] Dr. Jose Mckinney IG % 0.3 % Normal 0.0-0.5 [facility] [place] [facility] Comment on above: Performed By: #### U RTPCR #### [facility] [address] [place] [address] Dr. Jose Mckinney LYMPH # 1.5 103/ul Normal 1.2-3.8 [facility] [place] [facility] Comment on above: Performed By: #### U RTPCR #### [facility] [address] [place] [address] Dr. Jose Mckinney Lymphocytes/100 WBC (Bld) 25.3 % Normal 20.5-60.0 [facility] [place] [facility] Comment on above: Performed By: #### U RTPCR #### [facility] [address] [place] [address] Dr. Jose Mckinney MANUAL DIFF REQ NO Normal [facility] Comment on above: Performed By: #### U RTPCR #### [facility] [address] [place] [address] Dr. Jose Mckinney MCH (RBC) [Entitic mass] 30.1 pg Normal 26.7-34.0 [facility] [place] [facility] Comment on above: Performed By: #### U RTPCR #### [facility] [address] [place] [address] Dr. Jose Mckinney MCHC (RBC) [Mass/Vol] 32.5 g/dL Normal 29.9-35.2 [facility] [place] [facility] Comment on above: Performed By: #### U RTPCR #### [facility] [address] [place] [address] Dr. Jose Mckinney MCV (RBC) [Entitic vol] 92.6 fL Normal 81.0-99.0 [facility] Comment on above: Performed By: #### U RTPCR #### [facility] [address] [place] [address] Dr. Jose Mckinney MONO # 0.4 103/ul Normal 0.3-0.8 [facility] [place] [facility] Comment on above: Performed By: #### U RTPCR #### [facility] [address] [address] [address] Jose Mckinney Monocytes/100 WBC (Bld) 6.4 % Normal 1.7-12.0 [facility] Comment on above: Performed By: #### U RTPCR #### [facility] [address] [place] [address] Dr. Jose Mckinney NEUT # 3.6 103/ul Normal 1.4-6.5 [facility] [place] [facility] Comment on above: Performed By: #### U RTPCR #### [facility] [address] [place] [address] Dr. Jose Mckinney Neutrophils/100 WBC (Bld) 59.5 % Normal 43.0-75.0 [facility] [place] [facility] Comment on above: Performed By: #### U RTPCR #### [facility] [address] [place] [address] Dr. Jose Mckinney Platelet mean volume (Bld) [Entitic vol] 11.8 fL Normal 9.5-13.5 [facility] [place] [facility] Comment on above: Performed By: #### U RTPCR #### [facility] [address] [place] [address] Dr. Jose Mckinney PLT 175 103/ul Normal 150-450 [facility] [place] [facility] Comment on above: Performed By: #### U RTPCR #### [facility] [address] [place] [address] Dr. Jose Mckinney RBC 4.59 106/ul Normal 4.20-5.40 [facility] [place] [facility] Comment on above: Performed By: #### U RTPCR #### [facility] [address] [place] [address] Dr. Jose Mckinney WBC 6.1 103/ul Normal 4.0-11.0 [facility] [place] [facility] Comment on above: Performed By: #### U RTPCR #### [facility] [address] [place] [address] Dr. Jose Mckinney GLYCOHEMOGLOBIN A1Con 2021 ADA RECOMMENDATION SEE BELOW Normal [facility] Comment on above: Result Comment: ADA RECOMMENDED LIMIT 4.0 - 6.0 ADA THERAPEUTIC TARGET < 7.0 ACTION SUGGESTED > 7.0 Performed By: #### U RTPCR #### [facility] [address] [address] [address] Jose Mckinney Glucose [Mass/Vol] 209 mg/dL Normal [facility] Comment on above: Performed By: #### U RTPCR #### [facility] [address] [address] [address] Jose Mckinney HbA1c (Bld) [Mass fraction] 8.9 % Critically high 4.5-6.2 [facility] [place] [facility] Comment on above: Performed By: #### U RTPCR #### [facility] [address] [address] [address] Jose Mckinney IRONon 02-06-2022 Iron [Mass/Vol] 55.0 ug/dL Normal 50.0-170.0 [facility] Comment on above: Performed By: #### C BC #### [facility] [address] [place] [address] Dr. Jose Mckinney LIPID PROFILEon 02-06-2022 CHOL-HDL RATIO NORM SEE BELOW Normal [facility] Comment on above: Result Comment: 3.3 - 4.4 LOW RISK 4.4 - 7.1 AVERAGE RISK 7.1 - 11.0 MODERATE RISK >11.0 HIGH RISK Performed By: #### T SH, CMP, LIPID #### [facility] [address] [place] [address] Dr. Jose Mckinney Cholesterol [Mass/Vol] 215 mg/dL Critically high <=200 [facility] [place] [facility] Comment on above: Performed By: #### T SH, CMP, LIPID #### [facility] [address] [place] [address] Dr. Jose Mckinney Cholesterol in HDL [Mass/Vol] 32 mg/dL Critically low 40-60 [facility] [place] [facility] Comment on above: Performed By: #### T SH, CMP, LIPID #### [facility] [address] [address] [address] Jose Mckinney Cholesterol in LDL [Mass/Vol] 118.4 mg/dL Normal [facility] [place] [facility] Comment on above: Performed By: #### T SH, CMP, LIPID #### [facility] [address] [address] [address] Jose Mckinney Cholesterol.total/Choles terol in HDL [Mass ratio] 6.7 {ratio} Normal [facility] Comment on above: Performed By: #### T MIGUEL ÁNGEL CMP, LIPID #### [facility] [address] [address] [address] Jose Mckinney HDL NORMAL > or = 60 mg/dl - LOW CARDIOVASCULAR RISK <40 mg/dl - HIGH CARDIOVASCULAR RISK Normal [facility] Comment on above: Performed By: #### T MIGUEL ÁNGEL CMP, LIPID #### [facility] [address] [address] [address] Jose Mckinney LDL CALC NORMAL SEE BELOW Normal [facility] Comment on above: Result Comment: <100 mg/dl OPTIMAL 100 - 129 mg/dl NEAR OR ABOVE OPTIMAL 130 - 159 mg/dl BORDERLINE HIGH 160 - 189 mg/dl HIGH >190 mg/dl VERY HIGH Performed By: #### T MIGUEL ÁNGEL CMP, LIPID #### [facility] [address] [address] [address] Jose Mckinney Triglyceride [Mass/Vol] 323 mg/dL Critically high <=150 [facility] Comment on above: Performed By: #### T MIGUEL ÁNGEL CMP, LIPID #### [facility] [address] [address] [address] Jose Mckinney VLDL CALC 64.6 mg/dL Normal [facility] Comment on above: Performed By: #### T MIGUEL ÁNGEL CMP, LIPID #### [facility] [address] [address] [address] Jose Mckinney MAGNESIUMon 02-06-2022 Magnesium [Mass/Vol] 1.8 mg/dL Normal 1.8-2.4 [facility] Comment on above: Performed By: #### U RTPCR #### [facility] [address] [address] [address] Jose Mckinney PHOSPHORUSon 02-06-2022 Phosphate [Mass/Vol] 4.1 mg/dL Normal 2.6-4.7 [facility] Comment on above: Performed By: #### U RTPCR #### [facility] [address] [address] [address] Jose Mckinney PROF 14(COMP METB)on 022 Albumin [Mass/Vol] 3.6 g/dL Normal 3.4-5.0 [facility] Comment on above: Performed By: #### T SH, CMP, LIPID #### [facility] [address] [address] [address] Jose Mckinney Albumin/Globulin [Mass ratio] 0.9 {ratio} Normal [facility] Comment on above: Performed By: #### T SH, CMP, LIPID #### [facility] [address] [address] [address] Jose Mckinney ALP [Catalytic activity/Vol] 70 U/L Normal 46-116 [facility] [place] [facility] Comment on above: Performed By: #### T SH, CMP, LIPID #### [facility] [address] [address] [address] Jose Mckinney ALT [Catalytic activity/Vol] 38 U/L Normal 14-59 [facility] [place] [facility] Comment on above: Performed By: #### T SH, CMP, LIPID #### [facility] [address] [address] [address] Jose Mckinney Anion gap [Moles/Vol] 11.9 mmol/L Normal [facility] Comment on above: Performed By: #### T SH, CMP, LIPID #### [facility] [address] [address] [address] Jose Mckinney AST [Catalytic activity/Vol] 19 U/L Normal 15-37 [facility] [place] [facility] Comment on above: Performed By: #### T SH, CMP, LIPID #### [facility] [address] [address] [address] Jose Mckinney Bilirubin [Mass/Vol] 0.3 mg/dL Normal 0.2-1.0 [facility] Comment on above: Performed By: #### T SH, CMP, LIPID #### [facility] [address] [address] [address] Jose Mckinney Calcium [Mass/Vol] 9.3 mg/dL Normal 8.5-10.1 [facility] Comment on above: Performed By: #### T SH, CMP, LIPID #### [facility] [address] [address] [address] Jose Mckinney Chloride [Moles/Vol] 104 mmol/L Normal 98-107 [facility] [place] [facility] Comment on above: Performed By: #### T SH, CMP, LIPID #### [facility] [address] [address] [address] Jose Mckinney CO2 [Moles/Vol] 29.1 mmol/L Normal 21.0-32.0 [facility] Comment on above: Performed By: #### T SH, CMP, LIPID #### [facility] [address] [place] [address] Dr. Jose Mckinney Creatinine [Mass/Vol] 1.31 mg/dL Critically high 0.55-1.02 [facility] Comment on above: Performed By: #### T SH, CMP, LIPID #### [facility] [address] [place] [address] Dr. Jose Mckinney EGFR-AF IRAQI 51 mL/min/1.73m2 Critically low >=60 [facility] [place] [facility] Comment on above: Performed By: #### T SH, CMP, LIPID #### [facility] [address] [place] [address] Dr. Jose Mckinney EGFR-NON AF IRAQI 42 mL/min/1.73m2 Critically low >=60 [facility] [place] [facility] Comment on above: Performed By: #### T SH, CMP, LIPID #### [facility] [address] [place] [address] Dr. Jose Mckinney Globulin (S) [Mass/Vol] 3.9 g/dL Normal [facility] Comment on above: Performed By: #### T SH, CMP, LIPID #### [facility] [address] [place] [address] Dr. Jose Mckinney Glucose [Mass/Vol] 185 mg/dL Critically high 74-106 [facility] Comment on above: Performed By: #### T SH, CMP, LIPID #### [facility] [address] [place] [address] Dr. Jose Mckinney Potassium [Moles/Vol] 4.0 mmol/L Normal 3.5-5.1 [facility] Comment on above: Performed By: #### T SH, CMP, LIPID #### [facility] [address] [address] [address] Jose Mckinney Protein [Mass/Vol] 7.5 g/dL Normal 6.4-8.2 [facility] Comment on above: Performed By: #### T SH, CMP, LIPID #### [facility] [address] [address] [address] Jose Mckinney Sodium [Moles/Vol] 141 mmol/L Normal 136-145 [facility] Comment on above: Performed By: #### T MIGUEL ÁNGEL, CMP, LIPID #### [facility] [address] [place] [address] Dr. Jose Mckinney Urea nitrogen [Mass/Vol] 20.0 mg/dL Critically high 7.0-18 .0 [facility] Comment on above: Performed By: #### T MIGUEL ÁNGEL, CMP, LIPID #### [facility] [address] [place] [address] Dr. Joes Mckinney Urea nitrogen/Creatinine [Mass ratio] 15.3 mg/mg Normal [facility] Comment on above: Performed By: #### T MIGUEL ÁNGEL, CMP, LIPID #### [facility] [address] [place] [address] Dr. Jose Mckinney TSHon 02-06-2022 TSH 2.011 uIU/mL Normal 0.358-3.740 [facility] Comment on above: Performed By: #### T SH, CMP, LIPID #### [facility] [address] [place] [address] Dr. Jose Mckinney UA RANDOM W/MICROSCOPICon BACTERIA NONE SEEN Normal NONE SEEN [facility] Comment on above: Performed By: #### U RTPCR #### [facility] [address] [place] [address] Dr. Jose Mckinney Bilirubin Ql (U) Negative Normal NEGATIVE [facility] Comment on above: Performed By: #### U RTPCR #### [facility] [address] [place] [address] Dr. Jose Mckinney CAST NONE SEEN Normal NONE SEEN [facility] Comment on above: Performed By: #### U RTPCR #### [facility] [address] [place] [address] Dr. Jose Mckinney Clarity (U) CLEAR Normal CLEAR [facility] Comment on above: Performed By: #### U RTPCR #### [facility] [address] [place] [address] Dr. Jose Mckinney Color (U) LT. YELLOW Normal YELLOW [facility] Comment on above: Performed By: #### U RTPCR #### [facility] [address] [place] [address] Dr. Jose Mckinney Crystals LM Nom (Urine sed) NONE SEEN Normal NONE SEEN [facility] Comment on above: Performed By: #### U RTPCR #### [facility] [address] [place] [address] Dr. Jose Mckinney Epithelial cells LM Ql (Urine sed) RARE Normal NONE SEEN /RARE [facility] Comment on above: Performed By: #### U RTPCR #### [facility] [address] [place] [address] Dr. Jose Mckinney Glucose Ql (U) Negative Normal NEGATIVE [facility] Comment on above: Performed By: #### U RTPCR #### [facility] [address] [place] [address] Dr. Jose Mckinney Hemoglobin Ql (U) Negative Normal NEGATIVE The [facility] Comment on above: Performed By: #### U RTPCR #### [facility] [address] [place] [address] Dr. Jose Mckinney Ketones Ql (U) Negative Normal NEGATIVE The [facility] Comment on above: Performed By: #### U RTPCR #### [facility] [address] [place] [address] Dr. Jose Mckinney LEUKOCYTES Negative Normal NEGATIVE The [facility] Comment on above: Performed By: #### U RTPCR #### [facility] [address] [place] [address] Dr. Jose Mckinney MUCOUS NONE SEEN Normal NONE SEEN The [facility] Comment on above: Performed By: #### U RTPCR #### [facility] [address] [place] [address] Dr. Jose Mckinney Nitrite Ql (U) Negative Normal NEGATIVE The [facility] Comment on above: Performed By: #### U RTPCR #### [facility] [address] [place] [address] Dr. Jose Mckinney pH (U) 6.0 [pH] Normal 5-9 The [facility] Comment on above: Performed By: #### U RTPCR #### [facility] [address] [place] [address] Dr. Jose Mckinney RBC 0-2 Normal 0-2 The [facility] Comment on above: Performed By: #### U RTPCR #### [facility] [address] [place] [address] Dr. Jose Mckinney SPEC GRAVITY 1.010 Normal 1.005-<=1.02 5 [facility] Comment on above: Performed By: #### U RTPCR #### [facility] [address] [place] [address] Dr. Jose Mckinney UA PROTEIN Negative Normal NEGATIVE/ TRACE The [facility] Comment on above: Performed By: #### U RTPCR #### [facility] [address] [place] [address] Dr. Jose Mckinney Urobilinogen Qn (U) 0.2 {Betsy'U}/dL Normal 0.2 - 1. 0 The [facility] Comment on above: Performed By: #### U RTPCR #### [facility] [address] [place] [address] Dr. Jose Mckinney WBC 0-2 Abnormal NONE SEEN [facility] Comment on above: Performed By: #### U RTPCR #### [facility] [address] [place] [address] Dr. Jose Mckinney URIC ACID SERUMon 02-06-2022 Urate [Mass/Vol] 6.7 mg/dL Critically high 2.6-6.0 [facility] Comment on above: Performed By: #### U RTPCR #### [facility] [address] [place] [address] Dr. Jose Mckinney URINE T PROTEIN CREAT RATIOo n 02-06-2022 Protein (U) [Mass/Vol] 6.0 mg/dL Normal <=12.0 [facility] Comment on above: Performed By: #### I NSULIN #### [facility] [address] [place] [address] Dr. Jose Mckinney UR PROT CREAT RAT 0.19 Normal [facility] Comment on above: Performed By: #### I NSULIN #### [facility] [address] [place] [address] Dr. Jose Mckinney URINE CREAT 32.07 mg/dL Normal 20.00-300.00 [facility] Comment on above: Performed By: #### I NSULIN #### [facility] [address] [place] [address] Dr. Jose Mckinney BNPon 09-04-2021 Natriuretic peptide B (Bld) [Mass/Vol] 1096.0 pg/mL Critically high <=900.0 [facility] Comment on above: Performed By: #### U RTPCR #### [facility] [address] [place] [address] Dr. Jose Mckinney CBC AUTO DIFFon 09-04-2021 BASO # 0.0 103/ul Normal 0.0-0.1 [facility] Comment on above: Performed By: #### C BC #### [facility] [address] [place] [address] Dr. Jose Mckinney Basophils/100 WBC (Bld) 0.3 % Normal 0.2-2.0 [facility] Comment on above: Performed By: #### C BC #### [facility] [address] [place] [address] Dr. Jose Mckinney EO # 0.3 103/ul Normal 0.0-0.7 [facility] Comment on above: Performed By: #### C BC #### [facility] [address] [place] [address] Dr. Jose Mckinney Eosinophils/100 WBC (Bld) 2.1 % Normal 0.9-7.0 [facility] Comment on above: Performed By: #### C BC #### [facility] [address] [place] [address] Dr. Jose Mckinney Erythrocyte distribution width (RBC) [Ratio] 13.7 % Normal 11.0-15.0 [facility] Comment on above: Performed By: #### C BC #### [facility] [address] [place] [address] Dr. Jose Mckinney Hematocrit (Bld) [Volume fraction] 40.1 % Normal 36.0-48.0 [facility] Comment on above: Performed By: #### C BC #### [facility] [address] [place] [address] Dr. Jose Mckinney Hemoglobin (Bld) [Mass/Vol] 13.5 g/dL Normal 12.0-16.0 [facility] Comment on above: Performed By: #### C BC #### [facility] [address] [place] [address] Dr. Jose Mckinney IG # 0.48 10e3/ul Critically high 0.00-0.03 [facility] Comment on above: Performed By: #### C BC #### [facility] [address] [place] [address] Dr. Jose Mckinney IG % 3.7 % Critically high 0.0-0.5 [facility] Comment on above: Performed By: #### C BC #### [facility] [address] [place] [address] Dr. Jose Mckinney LYMPH # 4.2 103/ul Critically high 1.2-3.8 [facility] Comment on above: Performed By: #### C BC #### [facility] [address] [place] [address] Dr. Jose Mckinney Lymphocytes/100 WBC (Bld) 32.5 % Normal 20.5-60.0 [facility] Comment on above: Performed By: #### C BC #### [facility] [address] [place] [address] Dr. Jose Mckinney MANUAL DIFF REQ NO Normal [facility] Comment on above: Performed By: #### C BC #### [facility] [address] [address] [address] Jose Mckinney MCH (RBC) [Entitic mass] 30.7 pg Normal 26.7-34.0 [facility] Comment on above: Performed By: #### C BC #### [facility] [address] [place] [address] Dr. Jose Mckinney MCHC (RBC) [Mass/Vol] 33.7 g/dL Normal 29.9-35.2 [facility] Comment on above: Performed By: #### C BC #### [facility] [address] [place] [address] Dr. Jose Mckinney MCV (RBC) [Entitic vol] 91.1 fL Normal 81.0-99.0 [facility] Comment on above: Performed By: #### C BC #### [facility] [address] [place] [address] Dr. Jose Mckinney MONO # 0.9 103/ul Critically high 0.3-0.8 [facility] Comment on above: Performed By: #### C BC #### [facility] [address] [place] [address] Dr. oJse Mckinney Monocytes/100 WBC (Bld) 7.3 % Normal 1.7-12.0 [facility] Comment on above: Performed By: #### C BC #### [facility] [address] [place] [address] Dr. Jose Mckinney NEUT # 6.9 103/ul Critically high 1.4-6.5 [facility] Comment on above: Performed By: #### C BC #### [facility] [address] [place] [address] Dr. Jose Mckinney Neutrophils/100 WBC (Bld) 54.1 % Normal 43.0-75.0 [facility] Comment on above: Performed By: #### C BC #### [facility] [address] [place] [address] Dr. Jose Mckinney Platelet mean volume (Bld) [Entitic vol] 11.7 fL Normal 9.5-13.5 [facility] Comment on above: Performed By: #### C BC #### [facility] [address] [address] [address] Jose Mckinney PLT 216 103/ul Normal 150-450 [facility] Comment on above: Performed By: #### C BC #### [facility] [address] [place] [address] Dr. Jose Mckinney RBC 4.40 106/ul Normal 4.20-5.40 [facility] Comment on above: Performed By: #### C BC #### [facility] [address] [place] [address] Dr. Jose Mckinney WBC 12.8 103/ul Critically high 4.0-11.0 [facility] Comment on above: Performed By: #### C BC #### [facility] [address] [place] [address] Dr. Jose Mckinney Covid-19 PCR ([facility])on SARS-CoV-2 (COVID-19) RNA CHILO+probe Ql (Unsp spec) Not detected Normal NOT DETECTED The [facility] Comment on above: Result Comment: This test is not yet approved or cleared by the [place] FDA. When there are no FDA-approved or cleared tests available, and other criteria are met, FDA can make tests available under an emergency access mechanism called an Emergency Use Authorization (EUA). The EUA for this test is supported by the [place] of Health and Human Service's (HHS's) declaration [...] SARS-CoV-2. Performed By: #### I NSULIN #### [facility] [address] [place] [address] Dr. Jose Mckinney D-DIMERon 09-04-2021 D-DIMER 0.33 mg/L FEU Normal 0.19-0.50 [facility] Comment on above: Performed By: #### I NSULIN #### [facility] [address] [place] [address] Dr. Jose Mckinney D-DIMER COMMENTS SEE BELOW Normal [facility] Comment on above: Result Comment: Incr [...] hospitalization. Performed By: #### I NSULIN #### [facility] [address] [place] [address] Dr. Jose Mckinney PROF 14(COMP METB)on 022 Albumin [Mass/Vol] 3.4 g/dL Normal 3.4-5.0 [facility] Comment on above: Performed By: #### U RTPCR #### [facility] [address] [place] [address] Dr. Jose Mckinney Albumin/Globulin [Mass ratio] 1.0 {ratio} Normal [facility] Comment on above: Performed By: #### U RTPCR #### [facility] [address] [place] [address] Dr. Jose Mckinney ALP [Catalytic activity/Vol] 92 U/L Normal 46-116 [facility] Comment on above: Performed By: #### U RTPCR #### [facility] [address] [place] [address] Dr. Jose Mckinney ALT [Catalytic activity/Vol] 113 U/L Critically high 14-59 [facility] Comment on above: Performed By: #### U RTPCR #### [facility] [address] [place] [address] Dr. Jose Mckinney Anion gap [Moles/Vol] 14.0 mmol/L Normal [facility] Comment on above: Performed By: #### U RTPCR #### [facility] [address] [place] [address] Dr. Jose Mckinney AST [Catalytic activity/Vol] 50 U/L Critically high 15-37 [facility] Comment on above: Performed By: #### U RTPCR #### [facility] [address] [place] [address] Dr. Jose Mckinney Bilirubin [Mass/Vol] 0.4 mg/dL Normal 0.2-1.3 [facility] Comment on above: Performed By: #### U RTPCR #### [facility] [address] [place] [address] Dr. Jose Mckinney Calcium [Mass/Vol] 9.0 mg/dL Normal 8.5-10.1 [facility] Comment on above: Performed By: #### U RTPCR #### [facility] [address] [place] [address] Dr. Jose Mckinney Chloride [Moles/Vol] 100 mmol/L Normal 98-107 [facility] Comment on above: Performed By: #### U RTPCR #### [facility] [address] [place] [address] Dr. Jose Mckinney CO2 [Moles/Vol] 25.4 mmol/L Normal 22.0-30.0 [facility] Comment on above: Performed By: #### U RTPCR #### [facility] [address] [place] [address] Dr. Jose Mckinney Creatinine [Mass/Vol] 1.61 mg/dL Critically high 0.52-1.04 [facility] Comment on above: Performed By: #### U RTPCR #### [facility] [address] [place] [address] Dr. Jose Mckinney EGFR-AF IRAQI 41 mL/min/1.73m2 Critically low >=60 [facility] Comment on above: Performed By: #### U RTPCR #### [facility] [address] [place] [address] Dr. Jose Mckinney EGFR-NON AF IRAQI 33 mL/min/1.73m2 Critically low >=60 [facility] Comment on above: Performed By: #### U RTPCR #### [facility] [address] [address] [address] Jose Mckinney Globulin (S) [Mass/Vol] 3.4 g/dL Normal [facility] Comment on above: Performed By: #### U RTPCR #### [facility] [address] [address] [address] Jose Mckinney Glucose [Mass/Vol] 57 mg/dL Critically low 74-106 [facility] Comment on above: Performed By: #### U RTPCR #### [facility] [address] [place] [address] Dr. Jose Mckinney Potassium [Moles/Vol] 3.4 mmol/L Normal 3.4-5.0 [facility] Comment on above: Performed By: #### U RTPCR #### [facility] [address] [address] [address] Jose Mckinney Protein [Mass/Vol] 6.8 g/dL Normal 6.1-8.2 [facility] Comment on above: Performed By: #### U RTPCR #### [facility] [address] [place] [address] Dr. Jose Mckinney Sodium [Moles/Vol] 136 mmol/L Critically low 137-145 [facility] Comment on above: Performed By: #### U RTPCR #### [facility] [address] [place] [address] Dr. Jose Mckinney Urea nitrogen [Mass/Vol] 51.0 mg/dL Critically high 7.0-18 .0 [facility] Comment on above: Performed By: #### U RTPCR #### [facility] [address] [place] [address] Dr. Joes Mckinney Urea nitrogen/Creatinine [Mass ratio] 31.7 mg/mg Normal [facility] Comment on above: Performed By: #### U RTPCR #### [facility] [address] [place] [address] Dr. Jose Mckinney TROPONIN, HIGH SENSITIVITYon 09-04-2021 HSTROP 16.1 pg/mL Normal 4.0-35.5 [facility] Comment on above: Result Comment: CUT- OFF POINTS HAVE BEEN ESTABLISHED BASED ON THE FOURTH UNIVERSAL DEFINITIONS OF MYOCARDIAL INFARCTION. THE UPPER REFERENCE LIMIT (URL) OF TROPONIN, DEFINED THE 99TH PERCENTILE OF cTnI DISTRIBUTION IN A REFERENCE POPULATION, HAS BEEN CONFIRMED THE DECISION THRESHOLD FOR [place] DIAGNOSIS. Performed By: #### U RTPCR #### [facility] [address] [address] [address] Jose Mckinney XR CHEST 1 Von [...] AFIA KOHLI Date: 2021-09-04 20:53 Normal [facility] XR CHEST 2 Von 08-29-2021 XR CHEST [...] AFIA HALL Date: 2021-08-29 14:43 Normal [facility] Cardiovascular Lab Reporton 11-10-2020 Cardiovascular Lab Report [facility] Patient Name: [facility]umn MR #: [id number] Department of Physician: Huy Howell M.D. Division of Service Date: 11/09/2020 Cardiology Birthdate: 1970 Adult Cardiovascular Room #: [address] [place] [address] [address] [place] [id number] Cardiovascular Laboratory Report FINAL IMPRESSION: 1. Mild [...] Chatterjee as scheduled. [facility]. [facility] basis. PROCEDURES: Ultrasound-guided [...] the left radial artery was obtained. A 6-Tajik glide sheath was inserted without difficulty. Bilateral [...] Valadez M.D. Date Trans: 11/10/2020 07:37 A/josefa [id number] cc: Sea Chatterjee M.D. [address] [id number] [facility] Vital Signs Date Time Vital Sign Value Performing Clinician Facility 10-09-2023 [id number] Body height 160.02 cm MANAGER INTERNATIONAL-C Ann Fournier Work Phone: [facility] 10-09-2023 15:26-0400 Body mass index (BMI) [Ratio] 45.8 kg/m2 MANAGER INTERNATIONAL-C Ann Fournier Work Phone: [facility] 10-09-2023 15:26-0400 Body temperature 95.9 [degF] MANAGER INTERNATIONAL-C Ann Fournier Work Phone: [facility] 10-09-2023 15:26-0400 Body weight 117.25 kg MANAGER INTERNATIONAL-C Ann Fournier Work Phone: [facility] 10-09-2023 15:26-0400 Diastolic blood pressure 62 mm[Hg] MANAGER INTERNATIONAL-C Ann Fournier Work Phone: [facility] 10-09-2023 15:26-0400 Heart rate 75 /min MANAGER INTERNATIONAL-C Ann Fournier Work Phone: [facility] 10-09-2023 15:26-0400 Respiratory rate 18 /min MANAGER INTERNATIONAL-C Ann Fournier Work Phone: [facility] 10-09-2023 15:26-0400 SaO2% (BldA) [Mass fraction] 96 % MANAGER INTERNATIONAL-C Ann Fournier Work Phone: [facility] 10-09-2023 15:26-0400 Systolic blood pressure 110 mm[Hg] MANAGER INTERNATIONAL-C Ann Fournier Work Phone: [facility] 08-14-2023 10:23-0400 Body height 160 cm Renee Gruber KEYPUNCH OPERATOR-BENEFITS CLERK Work Phone: [facility] 08-14-2023 10:23-0400 Body mass index (BMI) [Ratio] 49.03 kg/m2 Renee Gruber KEYPUNCH OPERATOR-BENEFITS CLERK Work Phone: [facility] 08-14-2023 10:23-0400 Body weight 125.56 kg Renee Gruber KEYPUNCH OPERATOR-BENEFITS CLERK Work Phone: [employer] 08-14-2023 10:23-0400 Diastolic blood pressure 76 mm[Hg] Renee Gruber KEYPUNCH OPERATOR-BENEFITS CLERK Work Phone: [facility] 08-14-2023 10:23-0400 Heart rate 110 /min Renee Gruber KEYPUNCH OPERATOR-BENEFITS CLERK Work Phone: [employer] 08-14-2023 10:23-0400 Systolic blood pressure 144 mm[Hg] Renee Gruber KEYPUNCH OPERATOR-BENEFITS CLERK Work Phone: [employer] 04-30-2023 11:00-0500 Body height 160.02 cm Anila Jasmine Other [employer] Other 04-30-2023 11:00-0500 Body mass index (BMI) [Ratio] 51.54 kg/m2 Anila Jasmine Other [employer] Other 04-30-2023 11:00-0500 Body temperature 96.4 [degF] Anila Jasmine Other [employer] Other 04-30-2023 11:00-0500 Body weight 132 kg Anila Jasmine Other [employer] Other 04-30-2023 11:00-0500 Diastolic blood pressure 84 mm[Hg] Anila Jasmine Other [employer] Other 04-30-2023 11:00-0500 Respiratory rate 18 /min Anila Jasmine Other [employer] Other 04-30-2023 11:00-0500 SaO2% (BldA) [Mass fraction] 96 % Anila Jasmine Other [employer] Other 04-30-2023 11:00-0500 Systolic blood pressure 133 mm[Hg] Anila Jasmine Other [employer] Other 11-11-2022 14:45-0400 Body height 160.02 cm Misha Anahi Other [employer] Other 11-11-2022 14:45-0400 Body mass index (BMI) [Ratio] 49.24 kg/m2 Misha Anahi Other [employer] Other 11-11-2022 14:45-0400 Body weight 126.1 kg Misha Anahi Other [employer] Other 10-07-2022 14:30-0400 Body height 160.02 cm Misha Anahi Other [employer] Other 10-07-2022 14:30-0400 Body mass index (BMI) [Ratio] 50.41 kg/m2 Misha Christian Other [employer] Other 10-07-2022 14:30-0400 Body weight 129.09 kg Misha Christian Other [employer] Other 08-15-2022 15:20-0400 Body height 160.02 cm Anila Jasmine Other [employer] Other 08-15-2022 15:20-0400 Body mass index (BMI) [Ratio] 48.35 kg/m2 Ainla Jasmine Other [employer] Other 08-15-2022 15:20-0400 Body temperature 97.4 [degF] Anila Jasmine Other [employer] Other 08-15-2022 15:20-0400 Body weight 123.83 kg Anila Jasmine Other [employer] Other 08-15-2022 15:20-0400 Diastolic blood pressure 70 mm[Hg] Anlia Jasmine Other [employer] Other 08-15-2022 15:20-0400 Respiratory rate 18 /min Anila Jasmine Other [employer] Other 08-15-2022 15:20-0400 SaO2% (BldA) [Mass fraction] 99 % Anila Jasmine Other [employer] Other 08-15-2022 15:20-0400 Systolic blood pressure 132 mm[Hg] Anila Jasmine Other [employer] Other 02-11-2022 15:40-0400 Body height 160.02 cm Anila Jasmine Other [employer] Other 02-11-2022 15:40-0400 Body mass index (BMI) [Ratio] 50.37 kg/m2 Anila Jasmine Other [employer] Other 02-11-2022 15:40-0400 Body temperature 96.6 [degF] Anila Jasmine Other [employer] Other 02-11-2022 15:40-0400 Body weight 129 kg Anila Jasmine Other [employer] Other 02-11-2022 15:40-0400 Diastolic blood pressure 54 mm[Hg] Anila Jasmine Other [employer] Other 02-11-2022 15:40-0400 Respiratory rate 18 /min Anila Jasmine Other [employer] Other 02-11-2022 15:40-0400 SaO2% (BldA) [Mass fraction] 96 % Anila Jasmine Other [employer] Other 02-11-2022 15:40-0400 Systolic blood pressure 131 mm[Hg] Anila Jasmine Other [employer] Other 10-22-2021 15:30-0400 Body height 160.02 cm Arthur Olexa Other [employer] Other 10-22-2021 15:30-0400 Body mass index (BMI) [Ratio] 49.95 kg/m2 Arthur Moy Other [employer] Other 10-22-2021 15:30-0400 Body weight 127.92 kg Arthur Farrellxa Other [employer] Other 08-02-2021 15:40-0500 Body height 160.02 cm Anila Jasmine Other [employer] Other 08-02-2021 15:40-0500 Body mass index (BMI) [Ratio] 50.66 kg/m2 Anila Jasmine Other [employer] Other 08-02-2021 15:40-0500 Body weight 129.73 kg Anila Jasmine Other [employer] Other 08-02-2021 15:40-0500 Diastolic blood pressure 80 mm[Hg] Anila Jasmine Other [employer] Other 08-02-2021 15:40-0500 Respiratory rate 18 /min Anila Jasmine Other [employer] Other 08-02-2021 15:40-0500 SaO2% (BldA) [Mass fraction] 96 % Anila Jasmine Other [employer] Other 08-02-2021 15:40-0500 Systolic blood pressure 132 mm[Hg] Anila Jasmine Other [employer] Other Encounters Encounter Date Encounter Type Care Provider Facility Start: 12-18-2023 End: 12-18-2023 ambulatory [facility] Start: 11-13-2023 End: 11-13-2023 ambulatory ENEDINA Nickerson HEATHER Not Available Start: 11-10-2023 End: 11-10-2023 ambulatory IRMA NGUYEN Not Available Start: 11-03-2023 End: 11-03-2023 ambulatory [place] [facility] Start: 10-09-2023 End: 10-09-2023 ambulatory MANAGER INTERNATIONAL-C Ann Fournier Work Phone: [facility] Work Phone: Start: 10-09-2023 End: 10-09-2023 Patient encounter procedure MANAGER INTERNATIONAL-C Ann Fournier Work Phone: [facility] Physician [employer] [facility] Work Phone: Start: 10-08-2023 Non-patient / Non-visit MANAGER INTERNATIONAL-C Margaux Fournier Work Phone: [facility] Physician [facility] Work Phone: Start: 09-04-2023 End: 09-04-2023 Orders Only Jeni Bonilla [facility] Physicians General Surgery Comment on above: Dysphagia, unspecifi ed type Start: 09-03-2023 End: 09-03-2023 Orders Only Not In System Ref Prov [facility] Physicians General Surgery Start: 09-03-2023 End: 09-03-2023 Departed Referred MANAGER INTERNATIONAL-C Ann Fournier Work Phone: [facility] C[facility] Start: 08-29-2023 ambulatory ANN FOURNIER [facility] Start: 08-14-2023 End: 08-15-2023 Emergency department patient visit SHYANN JONES [facility] Start: 08-14-2023 End: 08-14-2023 ambulatory RENEE GRUBER [facility] Start: 08-14-2023 End: 08-14-2023 Office outpatient new 30 minutes Renee Gruber KEYPUNCH OPERATOR-BENEFITS CLERK Work Phone: [facility] Comment on above: Dysphagia, unspecifi ed type (Primary Dx); Personal history of ovarian cancer; Morbid obesity with BMI of 45.0-49.9, adult ([facility]) Start: 06-26-2023 End: 06-26-2023 ambulatory ENEDINA ROMERO Not Available Start: 04-30-2023 Office outpatient vi sit 15 minutes Anila Granados [facility] Start: 04-30-2023 End: 04-30-2023 ambulatory MANAGER INTERNATIONAL-C Ann Bianchi Shantanu Work Phone: [employer] Other Start: 04-30-2023 End: 04-30-2023 Patient encounter procedure MANAGER INTERNATIONAL-C Ann Velamer Work Phone: [facility] Ctr-Lab [place] Work Phone: Start: 04-17-2023 End: 04-17-2023 ambulatory ENEDINA ROMERO Not Available Start: 11-11-2022 (Proc F/U) Procedure F/U Misha Christian [facility] Start: 11-11-2022 End: 11-11-2022 ambulatory Misha Christian Other [employer] Other Start: 10-24-2022 End: 10-24-2022 ambulatory Arthur Moy Other [employer] Other Start: 10-24-2022 Telephone encounter Arthur Moy [facility] Start: 10-07-2022 End: 10-07-2022 ambulatory Misha Christian Other [employer] Other Start: 10-07-2022 Office outpatient vi sit 15 minutes Misha Christian [facility] Start: 09-23-2022 End: 09-23-2022 ambulatory Arthur Moy Facility:[facility] Start: 09-23-2022 End: 09-23-2022 ambulatory MD Arthur Moy Work Phone: [facility] Work Phone: Start: 09-23-2022 End: 09-23-2022 Patient encounter procedure MD Arthur Olexa Work Phone: [facility] C[facility] Start: 08-19-2022 End: 08-19-2022 Patient encounter procedure MD Arthur Moy Work Phone: [facility] Start: 08-19-2022 End: 08-19-2022 ambulatory MD Arthur Moy Work Phone: [facility] Work Phone: Start: 08-19-2022 Office outpatient ne w 30 minutes Arthur Olexa [facility] Start: 08-15-2022 End: 08-15-2022 ambulatory Anila Jasmine Other [employer] Other Start: 08-15-2022 Office outpatient vi sit 25 minutes Anila Jasmine [facility] Start: 08-13-2022 End: 08-14-2022 ambulatory ANILA JASMINE Facility:[facility] Start: 07-08-2022 End: 07-09-2022 ambulatory Afia Hall Facility:[facility] Start: 05-13-2022 End: 05-13-2022 ambulatory ANN FOURNIER Facility:[facility] Start: 02-11-2022 End: 02-11-2022 ambulatory Anila Jasmine Other [employer] Other Start: 02-11-2022 Office outpatient vi sit 25 minutes Anila Jasmine [facility] Start: 02-06-2022 End: 02-07-2022 ambulatory ANN FOURNIER Facility:[facility] Start: 10-22-2021 End: 10-22-2021 ambulatory Arthur Olexa Other [employer] Other Start: 10-22-2021 Office outpatient ne w 30 minutes Arthur Olexa [facility] Start: 09-07-2021 End: 09-07-2021 ambulatory ANN FOURNIER Facility:[facility] Start: 09-04-2021 End: 09-05-[address] AZEEM FITZGERALD Facility:[facility] Start: 08-29-2021 End: 08-30-2021 ambulatory DENYS RICH . Facility:[facility] Start: 08-02-2021 End: 08-02-2021 ambulatory Anila Jasmine Other [employer] Other Start: 08-02-2021 Office outpatient vi sit 15 minutes Anilajames Sellersr [facility] Start: 11-09-2020 End: 11-10-2020 ambulatory SEA HOY [facility] Start: 10-31-2020 End: 11-01-2020 ambulatory SEA HOY [facility] Start: 11-06-2017 Ambulatory ANTONIO BRIAN Facility :[id number] Start: 11-06-2017 Ambulatory Facility:[id number] Procedures Date Procedure Procedure Detail Performing Clinician Start: 09-03-2023 Esophagogastroduodenoscopy Renee burden KEYPUNCH OPERATOR-BENEFITS CLERK Work Phone: Start: 09-03-2023 POCT REHAB [...] 08-13-2024 Adult BMI Screening Adult [facility] Screening [facility] Start: 08-13-2024 Tobacco Screening Tobacco Screening [employer] Start: 02-01-2024 Influenza vaccination Influenza Vaccine [facility] Start: 08-14-2023 End: 08-13-2024 RF Esophagus Views W contrast PO Fluoroscopy esophagus Imaging Routine Dysphagia, unspecified type Expected: 08/14/2023, Expires: 08/13/2024 [employer] Work Phone: Comment on above: Expected: 08/14/2023, Expires: Start: 09-01-2023 Influenza vaccination Influenza Vaccine [employer] Start: 1989 Screening for malignant neoplasm of cervix Pap Smear [facility] Start: 1987 DTaP,Tdap and Td Vaccines (1 - Tdap) DTaP,Tdap and Td Vaccines (1 - Tdap) [facility] Start: 1986 Adult BMI Follow Up Plan Adult BMI Follow Up Plan [facility] Start: 1980 Depression Screening Depression Screening [facility] End: 08-13-2024 Esophagogastroduodenoscopy EGD GI Routine Dysphagia, unspecified type 1 Occurrences starting 08/14/2023 until 08/13/2024 [facility] [employer] Comment on above: 1 Occurrences starting 08/14/2023 until 08/13/2024 Renal function 2000 panel - Serum or Plasma [facility] Payers Date Payer Category Payer Medicare ANTH MEDICARE [facility] MEDICARE ADVANTAGE [id number] 2023-Present [phone] [address] [place] [address] [id number] 2022 Self-pay [id number] 2017 Medicaid MEDICAID [facility] EDICAID [id number] 2017-Present [phone] [address] [place] [address] [id number] 2008 Unknown [id number] 1968 Unknown [id number] 2.16.840.1.413941.3.579.2.647 1968 Unknown [id number] 2.16.840.1.094889.3.579.2.647 1968 Unknown [id number] 2.16.840.1.596335.3.579.2.593 1968 Unknown [id number] 2.16.840.1.491167.3.579.2.593 1968 Unknown [id number] 2.16.840.1.828287.3.579.2.593 1968 Unknown [id number] 2.16.840.1.313976.3.579.2.593 1968 Unknown [id number] 2.16.840.1.213195.3.579.2.593 1968 Unknown [id number] 2.16.840.1.410862.3.579.2.593 1968 Unknown [id number] 2.16.840.1.474440.3.579.2.593 1968 Unknown [id number] 2.16.840.1.189188.3.579.2.593 1968 Unknown [id number] 2.16.840.1.517986.3.579.2.1286 1968 Unknown [id number] 2.16.840.1.743785.3.579.2.1286 1968 Unknown [id number] 2.16.840.1.596374.3.579.2.1286 1968 Unknown [id number] 2.16.840.1.625069.3.579.2.1286 1968 Unknown [id number] 2.16.840.1.141888.3.579.2.1286 1968 Unknown [id number] 2.16.840.1.291439.3.579.2.1259 1968 Unknown [id number] 2.16.840.1.945434.3.579.2.9 1968 Unknown [id number] 2.16.840.1.920780.3.579.2.1259 1968 Unknown [id number] 2.16.840.1.683822.3.579.2.1259 1968 Unknown [id number] 2.16.840.1.323817.3.579.2.1259 1959 Medicaid [id number] 1959 Unknown [id number] Unknown [id number] 2.16.840.1.314508.3.579.2.531 Unknown [id number] 2.16.840.1.947542.3.579.2.531 Social History Date Type Detail Facility Unknown if ever smoked [employer] Other Start: 07-13-2020 End: 08-14-2023 [facility] Start: 1970 Sex Assigned At Female F [facility] Start: 08-14-2023 End: 10-09-2023 Tobacco smoking status NHIS Never smoked tobacco [facility] Start: 08-14-2023 Tobacco use and exposure Smokeless tobacco non-user [facility] [employer] [facility] Start: 08-14-2023 Alcohol intake Ex-drinker (finding) [facility] Start: 07-13-2020 End: 08-14-2023 History of Social function [facility] [employer] [facility] Childcare Unknown [facility] Start: 1970 Sex Assigned At Not on file [place] [employer] [facility] Medical Equipment Procedure Code Equipment Code Equipment Origin al Text Equipment Identifier Dates Start: 11-05-2016 Clinical Notes 08-02-2021 to 12-18-2023 Renee Gruber, KEYPUNCH OPERATOR-BENEFITS CLERK - 08/14/2023 10:00 AM EDT Note Date & Type Note Facility 12-18-2023 Note [facility] Cardiology Clinic Note Chief Complaint: wants to [...] history of Abnormal ECG, Asthma, Diabetes mellitus ([facility]), and Hyperlipidemia. Surgical History She has [...] kg/m??? Physical Examination: (more content not included)... [facility] 11-03-2023 Note [facility] Cardiology Clinic Note Chief Complaint: Patient [...] Dr. Andrew already scheduled 5. [facility]-needed basis MARY JANE [...] pain Paroxysmal supraventri (more content not included)... [facility] 08-14-2023 History of Present illness Narrative Images [...] Date Anemia Asthma Diabetes type 2, controlled ([facility]) GI problem Herniation of right side of [...] tablet,chewable, Chew and swallow., Disp: , Rfl: [id number] mg capsule, Take by mouth., Disp: , [...] Referring and communicating with other health career coach Dysphagia, unspecified type [R13.10] SHAYLA RUBIO [facility] Surgery [place] This note was created with the assistance of a speech recognition program. While intending to generate a timely document that accurately reflects the content of the visit, no guarantee can be provided that every grammatical or spelling mistake has been or will be identified or corrected. Thank you for your understanding. SHAYLA Rubio 08/14/23 1058 documented in this encounter [facility] 04-30-2023 Evaluation note Encounter Date Diagnosis [...] and vitamin D are within the goal. [employer] Other 05-08-2023 Evaluation note* Encounter Date Diagnosis [...] as documented in the electronic medical record. [employer] Other 03-20-2023 Evaluation note* Encounter Date Diagnosis [...] 2 diabetes mellitus without complication, unspecified whether bed bug exterminator insulin use (ICD-10 - E11.9) Jul, Cervical spine pain (ICD-10 - M54.2) [employer] Other 03-16-2023 Evaluation note* Encounter Date Diagnosis [...] the PCP office to see if the briefcase sewer can help her with the subsidized housing. [...] and vitamin D are within the goal. [employer] Other 02-07-2023 NotePROCEDURE: XR HIP LT 2 [...] Electronically authenticated by: AFIA HALL Date: 2022-07-09 07:42[facility]09-12-2022 Evaluation note* Encounter Date Diagnosis Assessment [...] the PCP office to see if the briefcase sewer can help her with the subsidized housing. [...] currently does not take PAULETTE or ARB. [employer] Other 05-23-2022 Evaluation note* Encounter Date Diagnosis [...] MRI to assess for rotator cuff tear. [employer] Other 03-03-2022 Evaluation note* Encounter Date Diagnosis [...] currently does not take PAULETTE or ARB. [employer] Other Evaluation noteNo assessment information available [facility] Work Phone: Evaluation noteNo InformationNort [employer] Other Evaluation noteNort [employer] Other Evaluation note* Diagnosis Dysphagia, unspecified type- Primary Personal history of ovarian cancer Personal history of malignant neoplasm of ovary Morbid obesity with BMI of 45.0-49.9, adult ([facility]) documented in this encounter [facility]* Diagnosis Dysphagia, unspecified type documented in this encounter [facility]* Diagnosis Onset Date Resolution Status CKD (chronic kidney disease) stage 3, GFR 30-59 ml/min acute [id number] acute Hyperuricemia acute Hypoparathyroidism acute 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 disease acute Vitamin D deficiency acute [facility] Work Phone: History general Narrative - [...] History SEE ABOVE SURGERY Hospitalization History [facility] X2 02/2020 [employer] Other History general Narrative - Reported* Type [...] History Cellul[facility] X2 02/2020 [employer] Other History general Narrative - ReportedNortTweetPhoto Other InstructionsNot on filedocumented in this encounter [facility] on filedocumented in this encounter [facility] SystemInstructionsNot on filedocumented in this encounter [facility] Summary Purpose Family History No [...] kidney disease) stage 3, GFR 30-59 ml/min [id number] Hyperuricemia Hypoparathyroidism Type 2 diabetes mellitus with diabetic chronic kidney disease Vitamin D deficiency Reason for Referral Specialty Diagnoses / Procedures Referred By Marina ruiz Referred To Contact Diagnoses Dysphagia, unspecified type Procedures Fluoroscopy esophagus Renee Gruber, KEYPUNCH OPERATOR-BENEFITS CLERK [address] [id number] Referral ID Status Reason Start Date Expiration Date V isits Requested Visits Authorized [id number] Pending Review 08/14/2023 08/13/2024 1 1 Additional Source Comments INFORMATION SOURCE (unrecogn ized section and content) DATE CREATED AUTHOR 11/18/2017 [facility] DATE CREATED AUTHOR AUTHOR'S ORGANIZ ATION 11/18/2017 [facility] DATE CREATED AUTHOR AUTHOR'S ORGANIZ ATION 11/16/2020 [facility] DATE CREATED AUTHOR AUTHOR'S ORGANIZ ATION 08/20/2022 [facility] DATE CREATED AUTHOR AUTHOR'S ORGANIZ ATION 08/16/2023 [facility] DATE CREATED AUTHOR AUTHOR'S ORGANIZ ATION 09/02/2023 [facility] DATE CREATED AUTHOR AUTHOR'S ORGANIZ ATION 09/06/2023 [facility] DATE CREATED AUTHOR AUTHOR'S ORGANIZ ATION 11/15/2023 [facility] dical Specialists [facility] DATE CREATED AUTHOR AUTHOR'S ORGANIZ ATION 12/22/2023 [facility] REASON FOR VISIT (unrecogniz ed section [...] Active Anila Granados MD Attending Provider Active Wash Worker Relationship Specialty Start Date End Date Ann Fournier APRN-BENEFITS CLERK [address] [facility] [place] [address] PCP - General Family Medicine 08/14/23 Wash Worker Relationship Specialty Start Date End Date Ann Fournier APRN-BENEFITS CLERK [address] [facility] [place] [address] PCP - General Family Medicine 08/14/23 Team Status: Inactive Member Role Status Dates CAROLYN Fitzgerald Primary Care Provider Active Start: September 03, 2023 End: September 03, 2023 Antonio Boo DO Attending Provider Active Start: September 03, 2023 End: September 03, 2023 Wash Worker Relationship Specialty Start Date End Date Ann Fournier KEYPUNCH OPERATOR-BENEFITS CLERK [address] [facility] [place] [address] PCP - General Family Medicine 08/14/23 Team [...] BE BASED ON THE PRIMARY CLINICAL RECORDS. [employer] provides no warranty or guarantee of the accuracy or completeness of information in this document.
[2024-01-12 14:38] LABS: Basophils Absolute Auto 0.1 10^3/uL (0.0-0.1); Basophils Percent Auto 0.9 % (0.2-2.0); Eosinophils Absolute Auto 0.3 10^3/uL (0.0-0.7); Eosinophils Percent Auto 5.6 % (0.9-7.0); Hematocrit 39.5 % (36.0-48.0); Hemoglobin 13.2 g/dL (12.0-16.0); Immature Granulocytes Abs Auto 0.03 10^3/uL (0.00-0.03); Immature Granulocytes Pct Auto 0.5 % (0.0-0.5); Lymphocytes Absolute Auto 1.6 10^3/uL (1.2-3.8); Mean Corpuscular HGB Conc 33.4 g/dL (29.9-35.2); Mean Corpuscular Hemoglobin 31.5 pg (26.7-34.0); Mean Corpuscular Volume 94.3 fL (81.0-99.0); Mean Platelet Volume 11.2 fL (9.5-13.5); Monocytes Absolute Auto 0.4 10^3/uL (0.3-0.8); Monocytes Percent Auto 6.8 % (1.7-12.0); Neutrophils Absolute Auto 3.3 10^3/uL (1.4-6.5); Neutrophils Percent Auto 58.2 % (43.0-75.0); Platelet Count 225 10^3/uL (150-450); Red Blood Count 4.19 10^6/uL (4.20-5.40); Red Cell Distribution Width 12.5 % (11.0-15.0); White Blood Count 5.7 10^3/uL (4.0-11.0)
[2024-01-12 14:52] LABS: Erythrocyte Sedimentation Rate 109 mm/hr (<=30)
[2024-01-12 15:28] LABS: Alanine Aminotransferase 35 U/L (14-59); Albumin Globulin Ratio 0.9; Albumin Level 3.7 g/dL (3.4-5.0); Alkaline Phosphatase 66 U/L (46-116); Anion Gap 11.5; Aspartate Amino Transferase 28 U/L (15-37); BUN Creatinine Ratio 25.5; Bilirubin Total 0.5 mg/dL (0.2-1.0); C Reactive Protein 0.56 mg/dL (<=0.50); Calcium 9.6 mg/dL (8.5-10.1); Carbon Dioxide 30.4 mmol/L (21.0-32.0); Chloride 100 mmol/L (98-107); Estimated GFR (African America 44 (>=60); Estimated GFR (Non-African Ame 36 (>=60); Globulin 4.1 g/dL; Glucose 195 mg/dL (74-106); Potassium 3.9 mmol/L (3.5-5.1); Sodium 138 mmol/L (136-145); Total Protein 7.8 g/dL (6.4-8.2)
== END 2024-01-12 14:16 | disposition home or self-care (01) ==
LOC: LAB 14:15
PROVIDERS: PCP Nurse Practitioner Family; Visit Provider Nurse Practitioner Family
DX: R23.4 Changes in skin texture (principal)
CPT/HCPCS: 36415; 80053; 85025; 85652; 86140; 87040

== ENCOUNTER 2024-01-18 12:55 | Emergency (ER) | payer MEDICARE, MEDICAID, SELFPAY ==
[2024-01-18 13:01] VITALS: BP 143/62; PULSE 88; TEMP 36.6; O2SAT 98; BMI 49.2
--- OUTSIDE RECORDS SUMMARY | 2024-01-18 13:07 | XMS_ITS | CCD ---
Author Organization [facility] Care Team Providers Care Ironer Or Presser Name Role Phone ANTONIO BRIAN Unavailable Unavailable JARAD NULL Unavailable Unavailab le RENA, SEA Primary Care Unavailable HOY, SEA Referring Unavailable ELTAHAWY, EHAB A Admitting Unavailable ELTAHAWY, EHAB A Attending Unavailable HOY, SEA Primary Care Unavailable HOY, SEA Referring Unavailable ELTAHAWY, EHAB A Admitting Unavailable ELTAHAWY, EHAB A Attending Unavailable Jasmine, Anila Unavailable Arthur Moy Unavailable MD Arthur Moy Attending Provider [phone] SHANTANU, ANN Primary Care Unavailable JASMINE, ANILA [...] Care Provider MD Anila Granados Attending Provider [phone] Sahntanu CASE FITTER-HEADING AND PRIMING OPERATOR, Ann S Primary Care Provider SHANTANU, ANN S Primary Care Unavailable SHYANN JONES Attending Unavailable SHYANN JONES Referring Unavailable SHANTANU, ANN S Primary Care Unavailable RENEE GRUBER Attending Unavailable JARAD NULL Referring Unavailable TENNILLEJARAD NICHOLSON Primary Care Unavailable SHANTANU, ANN S Referring Unavailable SHANTANU, ANN S Primary Care Unavailable CAROLYN Fournierela Tash Primary Care Provider [phone] Antonio Boo Attending Provider Antonio Boo [...] Acetaminophen / oxyCODONE Drug Allergy 021 [facility] Aspirin (1 source) Aspirin Drug Allergy [facility] Cephalosporins (antibiotic) (3 sources) Cephalexin; Translations: [cephalexin] Drug Allergy [facility] Macrolides (antibiotic) (1 source) Clarithromycin Drug Allergy [facility] Penicillins (antibiotic) (1 source) Penicillin Drug Allergy [facility] Quinolones (antibiotic) (2 sources) moxifloxacin; Translations: [Cipro] Drug Allergy [facility] Sulfamethoxazole / Trimethoprim (1 source) Sulfamethoxazole / Trimethoprim Drug Allergy [facility] Unclassified (12 sources) Adhesive agent Drug allergy (disorder) Unknown, Rash [facility] (12 sources) Acetaminophen / oxyCODONE Drug Allergy Vomiting [employer] [facility] [employer] Other (17 sources) Aspirin; Translations: [ASPIRIN] [facility] (10 sources) cefprozil; Translations: [Cefzil] Drug Allergy Unknown [facility] Rep[facility] (17 sources) Cephalexin; Translations: [CEPHALEXIN] Drug Allergy [facility] [employer] Other (11 sources) Cephalosporins (Antibiotic) Propensity to adverse reactions [facility] (20 sources) Ciprofloxacin; Translations: [ciprofloxacin] Drug Allergy [facility] [employer] Other (20 sources) moxifloxacin; Translations: [MOXIFLOXACIN] Drug Allergy [facility] [employer] Other (11 sources) oxyCODONE Drug Allergy nausea [facility] (11 sources) penicillAMINE Drug Allergy anaphylaxis [facility] (14 sources) Penicillins; Translations: [PENICILLINS] Propensity to adverse reactions Unknown [facility] (12 sources) Soy protein; Translations: [soy] Propensity to adverse reactions 014 anaphylaxis [facility] (16 sources) Sulfamethoxazole; Translations: [SULFAMETHOXAZOLE] Drug Allergy 011 Anaphylaxis, Swelling [facility] [employer] Other (12 sources) Sulfamethoxazole / Trimethoprim Drug Allergy 018 anaphylaxis [facility] [employer] Other (16 sources) Sulfanilamide; Translations: [SULFANILAMIDE] Drug Allergy Anaphylaxis [facility] [employer] Other (16 sources) Trimethoprim; Translations: [TRIMETHOPRIM] Drug Allergy Anaphylaxis [facility] [employer] Other (11 sources) Foam Tape Propensity to adverse reactions Unknown, Rash [facility] (11 sources) BCise Propensity to adverse reactions stomach upset [facility] (9 sources) Avalox Propensity to adverse reactions Unknown [facility] [employer] Other (1 source) Acetaminophen / oxyCODONE Drug Allergy [facility] (1 source) Aspirin Drug Allergy [facility] (1 source) Cephalexin Drug Allergy [facility] (1 source) Ciprofloxacin Drug Allergy [facility] (1 source) Clarithromycin Drug Allergy [facility] (1 source) Desonide Drug Allergy [facility] (1 source) egg extract Drug Allergy [facility] (1 source) moxifloxacin Drug Allergy [facility] (1 source) Penicillins Drug allergy (disorder) [facility] (1 source) Sulfamethoxazole / Trimethoprim Drug Allergy [facility] (1 source) tomato allergenic extract Drug Allergy [facility] (1 source) Misc-ENV; Translations: [Misc-ENV] Propensity to adverse reactions (disorder) [facility] (1 source) Misc-Other; Translations: [Misc-Other] Propensity to adverse reactions (disorder) [facility] (1 source) Misc-Food; Translations: [Misc-Food] Food allergy (disorder) [facility] (14 sources) Azithromycin; Translations: [AZITHROMYCIN] Drug Allergy rash, Hives [facility] (8 sources) cefprozil; Translations: [CEFPROZIL] Drug Allergy 011 Hives [facility] (3 sources) Penicillins Propensity to adverse reactions to drug Anaphylaxis [facility] (3 sources) Acetaminophen / oxyCODONE; Translations: [OXYCODONE-ACETAMIN OPHEN] Drug Allergy [facility] (3 sources) Sulfamethoxazole / Trimethoprim; Translations: [SULFAMETHOXAZOLE-T RIMETHOPRIM] Drug Allergy [facility] (2 sources) Acetaminophen Drug Allergy Unknown Reaction [facility] (1 source) atorvastatin; Translations: [ATORVASTATIN] Drug Allergy [facility] (1 source) Simvastatin; Translations: [SIMVASTATIN] Drug Allergy [facility] (1 source) OTHER; Translations: [OTHER] Propensity to adverse reactions (disorder) [facility] Medications Current Medications Medication Drug Class(es) Dates Sig (Normalized) Sig (Original) [id number] 200 actuat albuterol 0.09 mg/actuat metered dose [...] Active krill oil (10 sources) Start: 10-09-2023 Pbzgt-On-6-Dha -Tsz-Lsuctts-Wot (Krill Oil) 1,397-610-05-80 mg capsule Active 1 CAP PO Twice daily October 09, 2023 12:00am Krill Oil 300 MG Orally Active mwalc-tvduj-1-kbj-wkc-sghcdb 875-50-51-50 mg capsule (3 sources) qyhrp-szjud-4-dh o-ejb-ettarv 587-32-77-50 mg capsule Take by mouth. 0 Active [...] 11-03-2017 montelukast (S INGULAIR) 10 mg tablet Zkuaekcl-Qlp-Ddziaae Sulfate (One Daily Multi-Vit W-Mineral) 4.5 mg iron tablet (1 source) Start: 10-09-2023 take 1 tablet by mouth once daily Lnzzjbvi-Puh-Hracjap Sulfate (One Daily Multi-Vit W-Mineral) 4.5 mg [...] ( PROTONIX) 40 mg EC tablet Pen [place]cy 5/16 (3 sources) Start: 08-05-2018 Pen [place] 5/ 16 USE WITH PEN INSULIN SQ [...] mg c apsule take 1 capsule by [facility] every eight hours Lyrica 100 MG 1 [...] every 6 hrs for 7 days ANIYAH: [id number] September, Active triamcinolone acetonide 0.001 mg/mg topical [...] Start: 11-11-2022 Durolane Oct, 60 mg nystatin [id number] unt/ml topical cream (1 source) Polyene Antifungal [...] disease (4 sources) 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; Translations: [Unstable [...] sources) Long-term current use of insulin; 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: [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 insulin] Episodic Other aftercare (9 sources) H/O: high risk medication; Translations: [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] Episodic Other diseases of [...] 02-11-2022 Episodic Other aftercare (1 source) 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; Translations: [OTH SENIOR LIVING CURRENT DRUG THERAPY] Onset: 09-10-2021 Episodic Other aftercare (1 source) USP (current) use of insulin; Translations: [SENIOR LIVING CURRENT USE OF INSULIN] Onset: 09-10-2021 Episodic [...] Range Facility Office Visiton 12-18-2023 Follow-up visit [id number] [facility],Authumn D 1970 F Date Provider Department Center 12/18/2023 REBECA ANDRES Family History Problem Relation Age of Onset Angina Mother Heart attack Mother Heart attack Maternal Grandfather Family Status - Relation Status Age at Mother Maternal Grandfather Level of Service:88274 [place] OFFICE/OUTPATIENT ESTABLISHED MOD MDM 30 MIN [facility] 36on 11-26-2023 36 Rx sent to patient's pharmacy per her request. [facility] 36on 11-24-2023 36 Patient called back and said a lady at her pharmacy told her about Nexletol (bempedoic acid). Can I send RX for that? I told her if it was too pricey for her we could then try injections. Please advise. Thanks. [facility] 36 Regarding lab results from 11/24/2023: MD Theresa Howell MA Please prescribe Repatha or Praluent - whichever is covered by insurance Thanks for patient on her VM asking her to return my call. [facility] Office Visiton 11-03-2023 [id number] [facility] 1970 Provider Department Center 11/03/2023 REBECA ANDRES Family History Problem Relation Age of Onset Angina Mother Heart attack Mother Heart attack Maternal Grandfather Family Status - Relation Status Age at Mother Maternal Grandfather Level of Service:75016 [place] OFFICE/OUTPATIENT NEW MODERATE MDM 45 MINUTES [facility] Erythrocyte distribution wid th Auto (RBC) [Ratio]on 10-08-2023 Erythrocyte distribution width (RBC) [Ratio] 13.1 % 11.0-15.0 [facility] Estimated glomerular filtrat ion rate (GFR) non- Americanon 10-08-2023 GFR/1.73 sq M.predicted among non-blacks MDRD (S/P/Bld) [Vol rate/Area] 44 mL/min/{1.73_m2} >=60 [facility] Hematocrit Auto (Bld) [Volum e fraction]on 10-08-2023 Hematocrit (Bld) [Volume fraction] 43.0 % 36.0-48.0 [facility] Hemoglobin [Mass/volume] in Bloodon 10-08-2023 Hemoglobin (Bld) [Mass/Vol] 14.1 g/dL 12.0-16.0 [facility] Laboratory - Chemistry and C hemistry - challengeon 10-08-2023 Albumin [Mass/Vol] 3.5 g/dL 3.4-5.0 [facility] Calcium [Mass/Vol] 9.7 mg/dL 8.5-10.1 [facility] Chloride [Moles/Vol] 96 mmol/L 98-107 [facility] CO2 [Moles/Vol] 18.7 mmol/L 21.0-32.0 [facility] Creatinine [Mass/Vol] 1.25 mg/dL 0.55-1.02 [facility] GFR/1.73 sq M.predicted MDRD (S/P/Bld) [Vol rate/Area] 54 mL/min/{1.73_m2} >=60 [facility] Glucose [Mass/Vol] 472 mg/dL 74-106 [facility] Magnesium [Mass/Vol] 2.1 mg/dL 1.8-2.4 [facility] Potassium [Moles/Vol] 4.3 mmol/L 3.5-5.1 [facility] Sodium [Moles/Vol] 135 mmol/L 136-145 [facility] Urate [Mass/Vol] 13.4 mg/dL 2.6-6.0 [facility] Urea nitrogen [Mass/Vol] 19.0 mg/dL 7.0-18.0 [facility] Urea nitrogen/Creatinine [Mass ratio] 15.2 mg/mg [facility] Laboratory - Urinalysison Protein (U) [Mass/Vol] 36.5 mg/dL <=11.9 [facility] Leukocytes [#/volume] correc will for nucleated erythrocytes in Blood by Automated counon 10-08-2023 WBC corrected for nucl RBC Auto (Bld) [#/Vol] 4.9 10 3/uL 4.0-11.0 [facility] MCH Auto (RBC) [Entitic mass ]on 10-08-2023 MCH (RBC) [Entitic mass] 30.7 pg 26.7-34.0 [facility] MCHC Auto (RBC) [Mass/Vol]on 10-08-2023 MCHC (RBC) [Mass/Vol] 32.8 g/dL 29.9-35.2 [facility] MCV Auto (RBC) [Entitic vol] on 10-08-2023 MCV (RBC) [Entitic vol] 93.7 fL 81.0-99.0 [facility] No Panel Informationon 10-07 25-Hydroxy Vitamin D Total 108.3 ng/mL [facility] Comment on above: <20 ng/mL Vit D defi cient20-<30 ng/mL Vit D ppyxmmbltuka46-315 ng/mL Vit D sufficient>100 ng/mL Potential Toxicity Parathyroid Hormone (Intact) 8 pg/mL 15-65 [facility] Comment on above: Performed at: [facility] Must See [place] [address] [id number] Director: Godwin Menjivar PhD, Phone: [phone] Phosphorus Level 3.6 mg/dL 2.6-4.7 [facility] Urine Random Creatinine 38.95 mg/dL 20.00-300.0 0 [facility] Platelet mean volume Auto (B ld) [Entitic vol]on 10-08-2023 Platelet mean volume (Bld) [Entitic vol] 13.0 fL 9.5-13.5 [facility] Platelets Auto (Bld) [#/Vol] on 10-08-2023 Platelets (Bld) [#/Vol] 144 10 3/uL 150-450 [facility] RBC Auto (Bld) [#/Vol]on RBC (Bld) [#/Vol] 4.59 10 6/uL 4.20-5.40 [facility] Serum or plasma anion gap de terminationon 10-08-2023 Anion gap [Moles/Vol] 24.6 mmol/L [facility] Urine protein/creatinine rat ioon 10-08-2023 Protein/Creatinine (U) [Ratio] 0.94 [facility] EGDon 09-03-2023 [facility] Dylan 09-03-2023 L Specimen: [id number] Received: 09/03/23 Status: CATHIEFrantz Aldana Num: [id number] Spec Type: Surgical Subm Dr: Antonio Boo DO Tissues: A Gastric Biopsy (ANTRUM) Procedures: HE/2, Gross/Micro L4 Age/ Patient Sex Location Account Attending Physician [facility],Authumn D 53/F LABELL [id number] Antonio Boo DO SPEC NUM: [id number] RECD: 09/03/23 STATUS: TIEN MILTON NUM: [id number] KEVIN: 09/03/[address]: Antonio Boo DO ENTERED: 09/03/[address] [facility] [address]: Sunshine Marin SPEC TYPE: [...] each. Totally submitted in cassette A1. Specimen: [id number] Received: 09/03/23 Status: TIEN Aldana Num: [id number] Spec Type: Surgical Subm Dr: Antonio Boo DO Tissues: A Gastric Biopsy (ANTRUM) Procedures: Malena VILA/Shikha L4 [facility] [id number] (Continued) Specimen: [id number] Received: 09/03/23 (Continued) Signed (signature on file) Eder Mckinney MD 09/06/231849 Specimen: [id number] Received: 09/03/23 Status: TIEN Aldana Num: [id number] Spec Type: Surgical Subm Dr: Antonio Boo DO Tissues: A Gastric Biopsy (ANTRUM) Procedures: Malena VILA/Shikha L4 Patient: Mary Jane Schaeffer [id number] (Continued) Specimen: [id number] Received: 09/03/23 (Continued) CPT Codes 37244 Specimen: [id number] Received: 09/03/23 Status: TIEN Aldana Num: [id number] Spec Type: Surgical Subm Dr: Antonio Boo DO Tissues: A Gastric Biopsy (ANTRUM) Procedures: HE/2, Gross/Micro L4 Patient: Mary Jane Schaeffer [id number] (Continued) Signed (signature on file) Eder Mckinney MD 09/06/23 4669 [facility] POCT Rehab GlucoseOrdered By : Jeni Bonilla on 09-03-[address] [facility] [address] BRAIN WO CONTon CT BRAIN [...] Antonio Elizondo on 08/14/2023 5:19 PM Normal [facility] CT CERVICAL SPINE WO CONTon 08-14-2023 [...] Og MD on 08/14/2023 5:30 PM Normal [facility] Albumin [Mass/volume] in Ser um or Plasma by Bromocresol green (BCG) dye binding methoOrdered By: Anila Granados on 04-30-2023 Albumin BCG dye [Mass/Vol] 3.8 g/dL 3.5-5.7 [facility] Automated erythrocytes count in urine sediment (number/area)Ordered By: Anila Granados on 04-30-2023 RBC Auto (Urine sed) [#/Area] 5-9 [HPF] 0-4 [facility] Automated leukocytes count i n urine sediment (number/area)Ordered By: Anila Granados on 04-30-2023 WBC Auto (Urine sed) [#/Area] 1-2 [HPF] 0-4 [facility] Bilirubin Test strip Ql (U)O rdered By: Anila Granados on 04-30-2023 Bilirubin Ql (U) Negative Negative [facility] Calcium [Mass/volume] in Ser um or PlasmaOrdered By: Anila Granados on 04-30-2023 Calcium [Mass/Vol] 9.1 mg/dL 8.6-10.3 [facility] Carbon dioxide, total [Moles /volume] in Serum or PlasmaOrdered By: Anila Granados on 04-30-2023 CO2 [Moles/Vol] 31.5 mmol/L 21.0-31.0 [facility] Chloride [Moles/volume] in S faviola or PlasmaOrdered By: Anila Granados on 04-30-2023 Chloride [Moles/Vol] 102 mmol/L 98-107 [facility] Color Auto (U)Ordered By: Ab garcia Granados on 04-30-2023 Color (U) Yellow Yellow [facility] Creatinine [Mass/volume] in Serum or PlasmaOrdered By: Anila Granados on 04-30-2023 Creatinine [Mass/Vol] 1.53 mg/dL 0.60-1.20 [facility] Creatinine [Mass/volume] in UrineOrdered By: Anila Granados on 04-30-2023 Creatinine (U) [Mass/Vol] 34.0 mg/dL 11.0-20.0 [facility] Dipstick and Microscopicon 1 06-30-2022 Appearance (U) Clear Normal Clear [facility] Comment on above: Order Comment: Reaso n for Exam Chronic kidney disease, stage III (moderate);Disorders of fl Name Collection Type:: Clean-Voided Midstream Performed By: #### A DDONUAPLUS #### [facility] [address] [place] [address] [place] Bacteria,Urine None Seen Normal None Seen [facility] Comment on above: Order Comment: Reaso n for Exam Chronic kidney disease, stage III (moderate);Disorders of fl Name Collection Type:: Clean-Voided Midstream Performed By: #### A DDONUAPLUS #### [facility] [address] [id number] [place] Bilirubin,Urine Negative Normal Negative [facility] Comment on above: Order Comment: Reaso n for Exam Chronic kidney disease, stage III (moderate);Disorders of fl Name Collection Type:: Clean-Voided Midstream Performed By: #### A DDONUAPLUS #### [facility] [address] [id number] [place] Color (U) Yellow Normal Yellow [facility] Comment on above: Order Comment: Reaso n for Exam Chronic kidney disease, stage III (moderate);Disorders of fl Name Collection Type:: Clean-Voided Midstream Performed By: #### A DDONUAPLUS #### [address] Glucose Ql (U) Normal Normal Normal [facility] Comment on above: Order Comment: Reaso n for Exam Chronic kidney disease, stage III (moderate);Disorders of fl Name Collection Type:: Clean-Voided Midstream Performed By: #### A DDONUAPLUS #### [address] Hyaline Casts,Urine None Seen Normal 0-8 [facility] Comment on above: Order Comment: Reaso n for Exam Chronic kidney disease, stage III (moderate);Disorders of fl Name Collection Type:: Clean-Voided Midstream Result Comment: PERF ORMED BY: [place] [address] PATHOLOGIST CUFF STITCHER MEERA GRIFFITHS M.D. Performed By: #### A DDONUAPLUS #### [place] [address] [place] Ketones Ql (U) Negative Normal Negative [facility] Comment on above: Order Comment: Reaso n for Exam Chronic kidney disease, stage III (moderate);Disorders of fl Name Collection Type:: Clean-Voided Midstream Performed By: #### A DDONUAPLUS #### [address] Leukocyte esterase Test strip Ql (U) 1+ High Negative [facility] Comment on above: Order Comment: Reaso n for Exam Chronic kidney disease, stage III (moderate);Disorders of fl Name Collection Type:: Clean-Voided Midstream Performed By: #### A DDONUAPLUS #### [place] [address] [place] Nitrite,Urine Negative Normal Negative [facility] Comment on above: Order Comment: Reaso n for Exam Chronic kidney disease, stage III (moderate);Disorders of fl Name Collection Type:: Clean-Voided Midstream Performed By: #### A DDONUAPLUS #### [address] [address] [place] Occult Blood,Urine Negative Normal Negative [facility] Comment on above: Order Comment: Reaso n for Exam Chronic kidney disease, stage III (moderate);Disorders of fl Name Collection Type:: Clean-Voided Midstream Performed By: #### A DDONUAPLUS #### [facility] [address] [place] [address] pH (U) 6.5 [pH] Normal 5.0-9.0 [facility] Comment on above: Order Comment: Reaso n for Exam Chronic kidney disease, stage III (moderate);Disorders of fl Name Collection Type:: Clean-Voided Midstream Performed By: #### A DDONUAPLUS #### [facility] [address] [place] [address] Protein,Urine Negative Normal Negative [facility] Comment on above: Order Comment: Reaso n for Exam Chronic kidney disease, stage III (moderate);Disorders of fl Name Collection Type:: Clean-Voided Midstream Performed By: #### A DDONUAPLUS #### [facility] [address] [place] [address] RBC,Urine 5-9 High 0-4 [facility] Comment on above: Order Comment: Reaso n for Exam Chronic kidney disease, stage III (moderate);Disorders of fl Name Collection Type:: Clean-Voided Midstream Performed By: #### A DDONUAPLUS #### [facility] [address] [place] [address] [place] Specificy [place],Urine 1.010 Normal 1.001-1.030 [facility] Comment on above: Order Comment: Reaso n for Exam Chronic kidney disease, stage III (moderate);Disorders of fl Name Collection Type:: Clean-Voided Midstream Performed By: #### A DDONUAPLUS #### [facility] [address] [place] [address] [place] Squamous Epithelial Cell,Urine 0-1 Normal 0-2 [facility] Comment on above: Order Comment: Reaso n for Exam Chronic kidney disease, stage III (moderate);Disorders of fl Name Collection Type:: Clean-Voided Midstream Performed By: #### A DDONUAPLUS #### [facility] [address] Urobilinogen,Urine Normal Normal Normal [facility] Comment on above: Order Comment: Reaso n for Exam Chronic kidney disease, stage III (moderate);Disorders of fl Name Collection Type:: Clean-Voided Midstream Performed By: #### A DDONUAPLUS #### [facility] [address] WBC,Urine 1-2 Normal 0-4 [facility] Comment on above: Order Comment: Reaso n for Exam Chronic kidney disease, stage III (moderate);Disorders of fl Name Collection Type:: Clean-Voided Midstream Performed By: #### A DDONUAPLUS #### [facility] [address] Erythrocyte distribution wid th Auto (RBC) [Ratio]Ordered By: Anila Granados on 04-30-2023 Erythrocyte distribution width (RBC) [Ratio] 14.9 % 11.9-15.3 [facility] Glucose [Mass/volume] in Ser um or PlasmaOrdered By: Anila Granados on 04-30-2023 Glucose [Mass/Vol] 244 mg/dL 70-100 [facility] Comment on above: ADA recommended refe rence rangeRandom Glucose Reference Range is dependent on time and content of last meal. Glucose of more than 200 mg/dL in a nonstressed, ambulatory subject supports the diagnosis of Diabetes Mellitus. Hematocrit Auto (Bld) [Volum e fraction]Ordered By: Anila Granados on 04-30-2023 Hematocrit (Bld) [Volume fraction] 38.6 % 34.0-46.4 [facility] Hemoglobin [Mass/volume] in BloodOrdered By: Anila Granados on 04-30-2023 Hemoglobin (Bld) [Mass/Vol] 12.7 g/dL 11.8-15.4 [facility] Hemogram CBC Without Diffon 04-30-2023 Erythrocyte distribution width (RBC) [Ratio] 14.9 % Normal 11.9-15.3 [facility] Comment on above: Order Comment: Reaso n for Exam Chronic kidney disease, stage III (moderate);Disorders of fl Performed By: #### C BCNO #### [address] Hematocrit (Bld) [Volume fraction] 38.6 % Normal 34.0-46.4 [facility] Comment on above: Order Comment: Reaso n for Exam Chronic kidney disease, stage III (moderate);Disorders of fl Performed By: #### C BCNO #### [address] Hemoglobin (Bld) [Mass/Vol] 12.7 g/dL Normal 11.8-15.4 [facility] Comment on above: Order Comment: Reaso n for Exam Chronic kidney disease, stage III (moderate);Disorders of fl Performed By: #### C BCNO #### [address] MCH (RBC) [Entitic mass] 31.6 pg Normal 24.7-34.3 [facility] Comment on above: Order Comment: Reaso n for Exam Chronic kidney disease, stage III (moderate);Disorders of fl Performed By: #### C BCNO #### [address] MCV (RBC) [Entitic vol] 96.3 fL Normal 80-100 [facility] Comment on above: Order Comment: Reaso n for Exam Chronic kidney disease, stage III (moderate);Disorders of fl Performed By: #### C BCNO #### [address] Mean Corpuscular HGB Conc 32.8 g/dL Normal 32.0-35.0 [facility] Comment on above: Order Comment: Reaso n for Exam Chronic kidney disease, stage III (moderate);Disorders of fl Performed By: #### C BCNO #### [address] Platelet mean volume (Bld) [Entitic vol] 10.8 fL High 6.3-10.7 [facility] Comment on above: Order Comment: Reaso n for Exam Chronic kidney disease, stage III (moderate);Disorders of fl Result Comment: PERF ORMED BY: [place] [address] PATHOLOGIST CUFF STITCHER MEERA GRIFFITHS M.D. Performed By: #### C BCNO #### [facility] [address] Platelets (Bld) [#/Vol] 164 10*3/uL Normal 150-450 [facility] Comment on above: Order Comment: Reaso n for Exam Chronic kidney disease, stage III (moderate);Disorders of fl Performed By: #### C BCNO #### [facility] [address] RBC (Bld) [#/Vol] 4.01 10*6/uL Normal 3.60-5.00 [facility] Comment on above: Order Comment: Reaso n for Exam Chronic kidney disease, stage III (moderate);Disorders of fl Performed By: #### C BCNO #### [facility] [address] WBC (Bld) [#/Vol] 5.2 10*3/uL Normal 3.8-11.6 [facility] Comment on above: Order Comment: Reaso n for Exam Chronic kidney disease, stage III (moderate);Disorders of fl Performed By: #### C BCNO #### [address] Ketones Auto test strip (U) [Mass/Vol]Ordered By: Anila Granados on 04-30-2023 Ketones (U) [Mass/Vol] Negative Negative [facility] - UrinalysisOrder ed By: Anila Granados on 04-30-2023 Hyaline casts LM Ql (Urine sed) None seen [LPF] 0-8 [facility] Leukocytes [#/volume] correc will for nucleated erythrocytes in Blood by Automated counOrdered By: Anila Granados on 04-30-2023 WBC corrected for nucl RBC Auto (Bld) [#/Vol] 5.2 10*3/uL 3.8-11.6 [facility] MCH Auto (RBC) [Entitic mass ]Ordered By: Anila Granados on 04-30-2023 MCH (RBC) [Entitic mass] 31.6 pg 24.7-34.3 [facility] MCHC Auto (RBC) [Mass/Vol]Or dered By: Anila Granados on 04-30-2023 MCHC (RBC) [Mass/Vol] 32.8 g/dL 32.0-35.0 [facility] MCV Auto (RBC) [Entitic vol] Ordered By: Anila Granados on 04-30-2023 MCV (RBC) [Entitic vol] 96.3 fL 80-100 F [facility] Magnesiumon 04-30-2023 Magnesium [Mass/Vol] 1.9 mg/dL Normal 1.9-2.7 [facility] Comment on above: Order Comment: Reaso n for Exam Chronic kidney disease, stage III (moderate);Disorders of fl Performed By: #### U FERNANDO, RENAL, MG, [id number] #### [address] Magnesium [Mass/volume] in S faviola or PlasmaOrdered By: Anila Granados on 04-30-2023 Magnesium [Mass/Vol] 1.9 mg/dL 1.9-2.7 [facility] Nitrite Test strip Ql (U)Ord ered By: Anila Granados on 04-30-2023 Nitrite Ql (U) Negative Negative [facility] No Panel InformationOrdered By: Anila Granados on 04-30-2023 Estimated GFR (CKD-EPI) 40.189 mL/Min [facility] Creatinine Clearance (Chem N/A [facility] Parathyrin.intact [Mass/volu me] in Serum or PlasmaOrdered By: Anila Granados on 04-30-2023 Parathyrin.intact [Mass/Vol] 19.7 pg/mL [facility] Parathyroid Hormone Intacton 04-30-2023 Parathyroid Hormone Intact 19.7 pg/mL Normal [facility] Comment on above: Order Comment: Reaso n for Exam Chronic kidney disease, stage III (moderate);Disorders of fl Result Comment: PERF ORMED BY: [place] [address] PATHOLOGIST CUFF STITCHER MEERA GRIFFITHS M.D. Performed By: #### P TH #### [facility] [address] [place] [address] Phosphate [Mass/volume] in S faviola or PlasmaOrdered By: Anila Jasmine on 04-30-2023 Phosphate [Mass/Vol] 4.1 mg/dL 2.5-4.5 [facility] Platelet mean volume Auto (B ld) [Entitic vol]Ordered By: Anila Jasmine on 04-30-2023 Platelet mean volume (Bld) [Entitic vol] 10.8 fL 6.3-10.7 [facility] Platelets Auto (Bld) [#/Vol] Ordered By: Anila Jasmine on 04-30-2023 Platelets (Bld) [#/Vol] 164 10*3/uL 150-450 [facility] Potassium [Moles/volume] in Serum or PlasmaOrdered By: Anila Jasmine on 04-30-2023 Potassium [Moles/Vol] 4.0 mmol/L 3.5-5.1 [facility] Protein Auto test strip (U) [Mass/Vol]Ordered By: Anila Sellersr on 04-30-2023 Protein (U) [Mass/Vol] Negative Negative [facility] Protein Creat Ratio Ur Rando mon 04-30-2023 Creatinine, Urine (Random) 34.0 mg/dL High 11.0-20.0 [facility] Comment on above: Order Comment: Reaso n for Exam Chronic kidney disease, stage III (moderate);Disorders of fl Performed By: #### P ROCRERAT #### [facility] [address] [place] [address] Protein (U) [Mass/Vol] 4 mg/dL Normal 0-9 [facility] Comment on above: Order Comment: Reaso n for Exam Chronic kidney disease, stage III (moderate);Disorders of fl Performed By: #### P ROCRERAT #### [facility] [address] [place] [address] [place] Urine Protein/Creatinine Ratio 118 mg/g{Cre} Normal 0-200 [facility] Comment on above: Order Comment: Reaso n for Exam Chronic kidney disease, stage III (moderate);Disorders of fl Result Comment: PERF ORMED BY: [place] [address] PATHOLOGIST CUFF STITCHER MEERA GRIFFITHS M.D. Performed By: #### P ROCRERAT #### [facility] [address] [place] [address] Protein [Mass/volume] in Uri neOrdered By: Anila Jasmine on 04-30-2023 Protein (U) [Mass/Vol] 4 mg/dL 0-9 [facility] RBC Auto (Bld) [#/Vol]Ordere d By: Anila Jasmine on 04-30-2023 RBC (Bld) [#/Vol] 4.01 10*6/uL 3.60-5.00 [facility] Renal Function Panelon 04-30 Albumin [Mass/Vol] 3.8 g/dL Normal 3.5-5.7 [facility] Comment on above: Order Comment: Reaso n for Exam Chronic kidney disease, stage III (moderate);Disorders of fl Performed By: #### U FERNANDO, RENAL, MG, [id number] #### [address] Anion gap [Moles/Vol] 12.5 mmol/L Normal 6.0-15.0 [facility] Comment on above: Order Comment: Reaso n for Exam Chronic kidney disease, stage III (moderate);Disorders of fl Performed By: #### U FERNANDO, RENAL, MG, [id number] #### [facility] [address] [place] [address] [place] Calcium [Mass/Vol] 9.1 mg/dL Normal 8.6-10.3 [facility] Comment on above: Order Comment: Reaso n for Exam Chronic kidney disease, stage III (moderate);Disorders of fl Performed By: #### U FERNANDO, RENAL, MG, [id number] #### [facility] [address] [place] [address] [place] Chloride [Moles/Vol] 102 mmol/L Normal 98-107 [facility] Comment on above: Order Comment: Reaso n for Exam Chronic kidney disease, stage III (moderate);Disorders of fl Performed By: #### U FERNANDO, RENAL, MG, [id number] #### [facility] [address] [place] [address] [place] CO2 [Moles/Vol] 31.5 mmol/L High 21.0-31.0 [facility] Comment on above: Order Comment: Reaso n for Exam Chronic kidney disease, stage III (moderate);Disorders of fl Performed By: #### U FERNANDO, RENAL, MG, [id number] #### [facility] [address] Creatinine [Mass/Vol] 1.53 mg/dL High 0.60-1.20 [facility] Comment on above: Order Comment: Reaso n for Exam Chronic kidney disease, stage III (moderate);Disorders of fl Performed By: #### U FERNANDO, RENAL, MG, [id number] #### [facility] [address] [place] [address] [place] GFR/1.73 sq M.predicted MDRD (S/P/Bld) [Vol rate/Area] 40.189 mL/min/{1.73_m2} Normal [facility] Comment on above: Order Comment: Reaso n for Exam Chronic kidney disease, stage III (moderate);Disorders of fl Performed By: #### U FERNANDO, RENAL, MG, [id number] #### [facility] [address] [place] [id number] [place] Glucose [Mass/Vol] 244 mg/dL High 70-100 [facility] Comment on above: Order Comment: Reaso n for Exam Chronic kidney disease, stage III (moderate);Disorders of fl Result Comment: [place] Glucose Reference Range is dependent on time and content of last meal. Glucose of more than 200 mg/dL in a nonstressed, ambulatory subject supports the diagnosis of Diabetes Mellitus. ADA recommended reference range Performed By: #### U FERNANDO, RENAL, MG, [id number] #### [facility] [address] Phosphate [Mass/Vol] 4.1 mg/dL Normal 2.5-4.5 [facility] Comment on above: Order Comment: Reaso n for Exam Chronic kidney disease, stage III (moderate);Disorders of fl Performed By: #### U FERNANDO, RENAL, MG, [id number] #### [facility] [address] [place] [address] Potassium [Moles/Vol] 4.0 mmol/L Normal 3.5-5.1 [facility] Comment on above: Order Comment: Reaso n for Exam Chronic kidney disease, stage III (moderate);Disorders of fl Performed By: #### U FERNANDO, RENAL, MG, [id number] #### [address] Sodium [Moles/Vol] 142 mmol/L Normal 136-145 [facility] Comment on above: Order Comment: Reaso n for Exam Chronic kidney disease, stage III (moderate);Disorders of fl Performed By: #### U FERNANDO, RENAL, MG, [id number] #### [address] Urea nitrogen [Mass/Vol] 46 mg/dL High 7-25 [facility] Comment on above: Order Comment: Reaso n for Exam Chronic kidney disease, stage III (moderate);Disorders of fl Performed By: #### U FERNANDO, RENAL, MG, [id number] #### [address] Serum or plasma anion gap de terminationOrdered By: Anila Granados on 04-30-2023 Anion gap [Moles/Vol] 12.5 mmol/L 6.0-15.0 [facility] Sodium [Moles/volume] in Ser um or PlasmaOrdered By: Anila Granados on 04-30-2023 Sodium [Moles/Vol] 142 mmol/L 136-145 [facility] Specific gravity Auto test s trip (U) [Rel density]Ordered By: Anila Granados on 04-30-2023 Specific gravity (U) [Rel density] 1.010 1.001-1.030 [facility] Squamous epithelial cells de tection in urine sediment by light microscopyOrdered By: Anila Granados on 04-30-2023 Epithelial cells.squamous LM Ql (Urine sed) 0-1 [HPF] 0-2 [facility] Urate [Mass/volume] in Serum or PlasmaOrdered By: Anila Granados on 04-30-2023 Urate [Mass/Vol] 5.8 mg/dL 2.3-6.6 [facility] Urea nitrogen [Mass/volume] in Serum or PlasmaOrdered By: Anila Granados on 04-30-2023 Urea nitrogen [Mass/Vol] 46 mg/dL 7-25 [facility] Uric Acidon 04-30-2023 Urate [Mass/Vol] 5.8 mg/dL Normal 2.3-6.6 [facility] Comment on above: Order Comment: Reaso n for Exam Chronic kidney disease, stage III (moderate);Disorders of fl Performed By: #### U FERNANDO, RENAL, MG, [id number] #### [facility] [address] Urine bacteria detection by automated methodOrdered By: Anila Granados on 04-30-2023 Bacteria Auto Ql (U) None seen None Seen [facility] Urine clarity by refractomet ry automatedOrdered By: Anila Granados on 04-30-2023 Clarity Refractometry automated (U) Clear Clear [facility] Urine glucose measurement by automated test strip (mass/volume)Ordered By: Anila Granados on 04-30-2023 Glucose Auto test strip (U) [Mass/Vol] Normal mg/dL Normal [facility] Urine hemoglobin detection b y automated test stripOrdered By: Anila Granados on 04-30-2023 Hemoglobin Auto test strip Ql (U) Negative Negative [facility] Urine leukocyte esterase det ection by automated test stripOrdered By: Anila Granados on 04-30-2023 Leukocyte esterase Auto test strip Ql (U) 1+ Negative [facility] Urine protein/creatinine rat ioOrdered By: Anila Granados on 04-30-2023 Protein/Creatinine (U) [Ratio] 118 mg/g{Cre} 0-200 [facility] Urobilinogen Auto test strip (U) [Mass/Vol]Ordered By: Anila Granados on 04-30-2023 Urobilinogen (U) [Mass/Vol] Normal mg/dL Normal [facility] Vitamin D 25 Hydroxy Totalon 04-30-2023 Vitamin D 25 Hydroxy Total 68.6 ng/mL Normal 30-100 [facility] Comment on above: Order Comment: [...] practice guideline. JCEM. 2010; 96(7):1911-30. PERFORMED BY: [place] [address] PATHOLOGIST CUFF STITCHER MEERA GRIFFITHS M.D. Performed By: #### U FERNANDO, RENAL, MG, [id number] #### [address] Vitamin D+Metabolites [Mass/ volume] in Serum or PlasmaOrdered By: Anila Granados on 04-30-2023 Vitamin D+Metabolites [Mass/Vol] 68.6 ng/mL 30-100 [facility] Comment on above: VITAMIN D STATUS 25( [place])VITAMIN D RANGE (ng/mL) Deficient <20 Insufficient 20 to <30Sufficient 30 to 100Reference: Milo Braxton, Adrián TELLEZ, et al. Evaluation,treatment, and prevention of vitamin D deficiency; an Endocrine Society clinical practice guideline. JCEM. 2010; 96(7):1911-30. pH Auto test strip (U)Ordere d By: Anila Granados on 04-30-2023 pH (U) 6.5 [pH] 5.0-9.0 [facility] XR knee LT 2Von 09-23-2022 XR knee LT 2V [facility] Main [place] [address] [place] [address] XRay Report Signed Patient: Mary Jane Schaeffer MR#: [id number] : 1970 Acct:[id number] Age/Sex: 52 / F ADM Date: 09/23/22 Loc: [facility] Room: Type: [facility] Attending Dr: Arthur Moy MD Copies to: [...] Kim Coleman M.D.09/23/2022 5:10 PM Dictation Location: [place] [address] Transcribed By: BRITT 09/23/221709 Dictated By: Kim Coleman MD 09/23/22 1708 Signed By: 09/23/22 1710 Normal [facility] PTH INTACTon 08-14-2022 PTH, Intact 12 pg/mL Critically low 15-65 [facility] Comment on above: Performed By: #### I NSULIN #### [facility] [address] [place] [address] [address] Jose Mckinney HEMOGRAM AND PLATELon 2022 Hematocrit (Bld) [Volume fraction] 38.7 % Normal 36.0-48.0 [facility] Comment on above: Performed By: #### U RTPCR #### [facility] [address] [place] [address] Dr. Jose Mckinney Hemoglobin (Bld) [Mass/Vol] 12.7 g/dL Normal 12.0-16.0 [facility] Comment on above: Performed By: #### U RTPCR #### [facility] [address] [place] [address] Dr. Jose Mckinney MCH (RBC) [Entitic mass] 30.5 pg Normal 26.7-34.0 [facility] Comment on above: Performed By: #### U RTPCR #### [facility] [address] [place] [address] Dr. Jose Mckinney MCHC (RBC) [Mass/Vol] 32.8 g/dL Normal 29.9-35.2 [facility] Comment on above: Performed By: #### U RTPCR #### [facility] [address] [place] [address] Dr. Jose Mckinney MCV (RBC) [Entitic vol] 92.8 fL Normal 81.0-99.0 [facility] Comment on above: Performed By: #### U RTPCR #### [facility] [address] [place] [address] Dr. Jose Mckinney PLT 223 103/ul Normal 150-450 [facility] Comment on above: Performed By: #### U RTPCR #### [facility] [address] [place] [address] Dr. Jose Mckinney RBC 4.17 106/ul Critically low 4.20-5.40 [facility] Comment on above: Performed By: #### U RTPCR #### [facility] [address] [place] [address] Dr. Jose Mckinney WBC 7.0 103/ul Normal 4.0-11.0 [facility] Comment on above: Performed By: #### U RTPCR #### [facility] [address] [place] [address] Dr. Jose Mckinney MAGNESIUMon 08-13-2022 Magnesium [Mass/Vol] 1.9 mg/dL Normal 1.8-2.4 [facility] Comment on above: Performed By: #### U FERNANDO, RENAL, MG #### [facility] [address] [place] [address] [address] Jose Mckinney RENAL FUNCTION PANELon 08-13 Albumin [Mass/Vol] 3.6 g/dL Normal 3.4-5.0 [facility] Comment on above: Performed By: #### U FERNANDO, RENAL, MG #### [facility] [address] [place] [address] Dr. Jose Mckinney Calcium [Mass/Vol] 9.3 mg/dL Normal 8.5-10.1 [facility] Comment on above: Performed By: #### U FERNANDO, RENAL, MG #### [facility] [address] [place] [address] Dr. Jose Mckinney Chloride [Moles/Vol] 104 mmol/L Normal 98-107 [facility] Comment on above: Performed By: #### U FERNANDO, RENAL, MG #### [facility] [address] [place] [address] Dr. Jose Mckinney CO2 [Moles/Vol] 28.3 mmol/L Normal 21.0-32.0 [facility] Comment on above: Performed By: #### U FERNANDO, RENAL, MG #### [facility] [address] [place] [address] Dr. Jose Mckinney Creatinine [Mass/Vol] 1.34 mg/dL Critically high 0.55-1.02 [facility] Comment on above: Performed By: #### U FERNANDO, RENAL, MG #### [facility] [address] [place] [address] Dr. Jose Mckinney EGFR-AF SCOTTISH 50 mL/min/1.73m2 Critically low >=60 [facility] Comment on above: Performed By: #### U FERNANDO, RENAL, MG #### [facility] [address] [place] [address] Dr. Jose Mckinney EGFR-NON AF SCOTTISH 41 mL/min/1.73m2 Critically low >=60 [facility] Comment on above: Performed By: #### U FERNANDO, RENAL, MG #### [facility] [address] [address] [address] Jose Mckinney Glucose [Mass/Vol] 226 mg/dL Critically high 74-106 [facility] Comment on above: Performed By: #### U FERNANDO, RENAL, MG #### [facility] [address] [place] [address] [address] Jose Mckinney Phosphate [Mass/Vol] 4.6 mg/dL Normal 2.6-4.7 [facility] Comment on above: Performed By: #### U FERNANDO, RENAL, MG #### [facility] [address] [place] [address] Dr. Jose Mckinney Potassium [Moles/Vol] 4.4 mmol/L Normal 3.5-5.1 [facility] Comment on above: Performed By: #### U FERNANDO, RENAL, MG #### [facility] [address] [place] [address] Dr. Jose Mckinney Sodium [Moles/Vol] 138 mmol/L Normal 136-145 [facility] Comment on above: Performed By: #### U FERNANDO, RENAL, MG #### [facility] [address] [address] [address] Jose Mckinney Urea nitrogen [Mass/Vol] 27.0 mg/dL Critically high 7.0-18 .0 [facility] Comment on above: Performed By: #### U FERNANDO, RENAL, MG #### [facility] [address] [address] [address] Jose Mckinney UA RANDOM W/MICROSCOPICon BACTERIA NONE SEEN Normal NONE SEEN [facility] Comment on above: Performed By: #### U AMIC #### [facility] [address] [address] [address] Jose Mckinney Bilirubin Ql (U) Negative Normal NEGATIVE [facility] Comment on above: Performed By: #### U AMIC #### [facility] [address] [place] [address] Dr. Jose Mckinney CAST NONE SEEN Normal NONE SEEN [facility] Comment on above: Performed By: #### U AMIC #### [facility] [address] [address] [address] Jose Mckinney Clarity (U) CLEAR Normal CLEAR [facility] Comment on above: Performed By: #### U AMIC #### [facility] [address] [place] [address] Dr. Jose Mckinney Color (U) YELLOW Normal YELLOW [facility] Comment on above: Performed By: #### U AMIC #### [facility] [address] [address] [address] Jose Mckinney Crystals LM Nom (Urine sed) NONE SEEN Normal NONE SEEN [facility] Comment on above: Performed By: #### U AMIC #### [facility] [address] [place] [address] Dr. Jose Mckinney Epithelial cells LM Ql (Urine sed) NONE SEEN Normal NONE SEEN /RARE [facility] Comment on above: Performed By: #### U AMIC #### [facility] [address] [place] [address] Dr. Jose Mckinney Glucose Ql (U) 250 mg/dl Abnormal NEGATIVE [facility] Comment on above: Performed By: #### U AMIC #### [facility] [address] [place] [address] Dr. Jose Mckinney Hemoglobin Ql (U) Negative Normal NEGATIVE [facility] Comment on above: Performed By: #### U AMIC #### [facility] [address] [place] [address] Dr. Jose Mckinney Ketones Ql (U) Negative Normal NEGATIVE [facility] Comment on above: Performed By: #### U AMIC #### [facility] [address] [place] [address] Dr. Jose Mckinney LEUKOCYTES Negative Normal NEGATIVE [facility] Comment on above: Performed By: #### U AMIC #### [facility] [address] [place] [address] Dr. Jose Mckinney MUCOUS NONE SEEN Normal NONE SEEN [facility] Comment on above: Performed By: #### U AMIC #### [facility] [address] [place] [address] Dr. Jose Mckinney Nitrite Ql (U) Negative Normal NEGATIVE [facility] Comment on above: Performed By: #### U AMIC #### [facility] [address] [place] [address] Dr. Jose Mckinney pH (U) 6.5 [pH] Normal 5-9 [facility] Comment on above: Performed By: #### U AMIC #### [facility] [address] [address] [address] Jose Mckinney RBC 0-2 Normal 0-2 [facility] Comment on above: Performed By: #### U AMIC #### [facility] [address] [place] [address] Dr. Jose Mckinney SPEC GRAVITY 1.020 Normal 1.005-<=1.02 5 [facility] Comment on above: Performed By: #### U AMIC #### [facility] [address] [place] [address] Dr. Jose Mckinney UA PROTEIN Negative Normal NEGATIVE/ TRACE [facility] Comment on above: Performed By: #### U AMIC #### [facility] [address] [place] [address] Dr. Jose Mckinney Urobilinogen Qn (U) 0.2 {Betsy'U}/dL Normal 0.2 - 1. 0 [facility] Comment on above: Performed By: #### U AMIC #### [facility] [address] [place] [address] Dr. Jose Mckinney WBC NONE SEEN Normal NONE SEEN [facility] Comment on above: Performed By: #### U AMIC #### [facility] [address] [place] [address] Dr. Jose Mckinney URIC ACID SERUMon 08-13-2022 Urate [Mass/Vol] 4.1 mg/dL Normal 2.6-6.0 [facility] Comment on above: Performed By: #### U FERNANDO, RENAL, MG #### [facility] [address] [place] [address] Dr. Jose Mckinney URINE T PROTEIN CREAT RATIOo n 08-13-2022 Protein (U) [Mass/Vol] 13.5 mg/dL Critically high <=12.0 [facility] Comment on above: Performed By: #### U RTPCR #### [facility] [address] [place] [address] Dr. Jose Mckinney UR PROT CREAT RAT 0.16 Normal [facility] Comment on above: Performed By: #### U RTPCR #### [facility] [address] [place] [address] Dr. Jose Mckinney URINE CREAT 83.00 mg/dL Normal 20.00-300.00 [facility] Comment on above: Performed By: #### U RTPCR #### [facility] [address] [place] [address] Dr. Jose Mckinney VITAMIN D 25 OHon 08-13-2022 VIT D 25-OH 54.4 ng/mL Normal [facility] Comment on above: Performed By: #### C BC #### [facility] [address] [place] [address] Dr. Jose Mckinney VIT D RANGES SEE BELOW Normal [facility] Comment on above: Result Comment: <20 ng/mL Vit D deficient 20 - <30 ng/mL Vit D insufficient 30 - 100 ng/mL Vit D sufficient >100 ng/mL Potential Toxicity Performed By: #### C BC #### [facility] [address] [place] [address] Dr. Jose Mckinney [facility]on 05-02 SARS-CoV-2 (COVID-19) RNA CHILO+probe Ql (Unsp spec) Not detected Normal NOT DETECTED [facility] Comment on above: Result Comment: This test is not yet approved or cleared by the [place] FDA. When there are no FDA-approved or cleared tests available, and other criteria are met, FDA can make tests available under an emergency access mechanism called an Emergency Use Authorization (EUA). The EUA for this test is supported by the Dope Edger of Health and Human Service's (HHS's) declaration [...] SARS-CoV-2. Performed By: #### C BC #### [facility] [address] [place] [address] Dr. Jose Mckinney INFLUENZA A AND B AGon 05-13 INFLUANE SEE BELOW Normal [facility] Comment on above: Result Comment: Nega tive for Flu A protein angiten. Infection due to Flu A cannot be ruled out. Flu A angiten in the sample may be below the detection limit of the test. Performed By: #### C BC #### [facility] [address] [place] [address] Dr. [facility] Normal [facility] Comment on above: Result Comment: Nega tive for Flu B protein antigen. Infection due to Flu B cannot be ruled out. Flu B antigen in the sample may be below the detection limit of the test. Performed By: #### C BC #### [facility] [address] [place] [address] Dr. Jose Mckinney INFLUENZA A AG Negative Normal NEGATIVE SEE COMMENT [facility] Comment on above: Performed By: #### C BC #### [facility] [address] [place] [address] Dr. Jose Mckinney INFLUENZA B AG Negative Normal NEGATIVE SEE COMMENT [facility] Comment on above: Performed By: #### C BC #### [facility] [address] [place] [address] Dr. Jose Mckinney INTERNAL CONTROLS Within Normal Limits Normal Wi thin Normal Limits [facility] Comment on above: Performed By: #### C BC #### [facility] [address] [place] [address] Dr. Jose Mckinney INSULINon 02-07-2022 Insulin 191.0 uIU/mL Critically high 2.6-24.9 [facility] Comment on above: Performed By: #### I NSULIN #### [facility] [address] [place], [place] [address] Dr. Jose Mckinney PTH INTACTon 02-07-2022 PTH, Intact 13 pg/mL Critically low 15-65 [facility] Comment on above: Performed By: #### C BC #### [facility] [address] [place] [address] [address] Jose Mckinney T4, T3U, FTI [facility]07 Free Thyroxine Index 2.3 Normal 1.2-4.9 [facility] Comment on above: Performed By: #### C BC #### [facility] [address] [place] [address] [address] Jose Mckinney T3 Uptake 23 % Critically low 24-39 [facility] Comment on above: Performed By: #### C BC #### [facility] [address] [address] [address] Jose Mckinney T4 [Mass/Vol] 10.2 ug/dL Normal 4.5-12.0 [facility] Comment on above: Performed By: #### C BC #### [facility] [address] [place] [address] [address] Jose Mckinney VIT D 25-OH [facility] 2021 Vitamin D, 25-Hydroxy 43.3 ng/mL Normal 30.0-100.0 [facility] Comment on above: Result Comment: Gayatri min D deficiency has been defined by the [place] of [employer] and an Endocrine Society practice guideline as a level of serum 25-OH vitamin D less than 20 ng/mL (1,2). The Endocrine Society went on to further define vitamin D insufficiency as a level between 21 and 29 ng/mL (2). 1. IOM ([place] of [employer]). 2010. Dietary reference intakes for calcium and D. [place]: The National Academies Press. 2. Amilcar JIMÉNEZ, [place], Adrián TELLEZ, et al. Evaluation, treatment, and prevention of vitamin D deficiency: an Endocrine Society clinical practice guideline. JCEM. 2010; 96(7):1911-30. Performed By: #### C BC #### [facility] [address] [place] [address] [address] Jose Mckinney CBC AUTO DIFFon 02-06-2022 BASO # 0.0 103/ul Normal 0.0-0.1 [facility] Comment on above: Performed By: #### U RTPCR #### [facility] [address] [place] [address] Dr. Jose Mckinney Basophils/100 WBC (Bld) 0.5 % Normal 0.2-2.0 [facility] Comment on above: Performed By: #### U RTPCR #### [facility] [address] [place] [address] Dr. Jose Mckinney EO # 0.5 103/ul Normal 0.0-0.7 [facility] Comment on above: Performed By: #### U RTPCR #### [facility] [address] [place] [address] Dr. Jose Mckinney Eosinophils/100 WBC (Bld) 8.0 % Critically high 0.9-7.0 [facility] Comment on above: Performed By: #### U RTPCR #### [facility] [address] [place] [address] Dr. Jose Mckinney Erythrocyte distribution width (RBC) [Ratio] 13.6 % Normal 11.0-15.0 [facility] Comment on above: Performed By: #### U RTPCR #### [facility] [address] [place] [address] Dr. Jsoe Mckinney Hematocrit (Bld) [Volume fraction] 42.5 % Normal 36.0-48.0 [facility] Comment on above: Performed By: #### U RTPCR #### [facility] [address] [place] [address] Dr. Jose Mckinney Hemoglobin (Bld) [Mass/Vol] 13.8 g/dL Normal 12.0-16.0 [facility] Comment on above: Performed By: #### U RTPCR #### [facility] [address] [place] [address] Dr. Jose Mckinney IG # 0.02 10e3/ul Normal 0.00-0.03 [facility] Comment on above: Performed By: #### U RTPCR #### [facility] [address] [place] [address] Dr. Jose Mckinney IG % 0.3 % Normal 0.0-0.5 [facility] Comment on above: Performed By: #### U RTPCR #### [facility] [address] [place] [address] Dr. Jose Mckinney LYMPH # 1.5 103/ul Normal 1.2-3.8 [facility] Comment on above: Performed By: #### U RTPCR #### [facility] [address] [place] [address] Dr. Jose Mckinney Lymphocytes/100 WBC (Bld) 25.3 % Normal 20.5-60.0 [facility] Comment on above: Performed By: #### U RTPCR #### [facility] [address] [place] [address] Dr. Jose Mckinney MANUAL DIFF REQ NO Normal [facility] Comment on above: Performed By: #### U RTPCR #### [facility] [address] [place] [address] Dr. Jose Mckinney MCH (RBC) [Entitic mass] 30.1 pg Normal 26.7-34.0 [facility] Comment on above: Performed By: #### U RTPCR #### [facility] [address] [place] [address] Dr. Jose Mckinney MCHC (RBC) [Mass/Vol] 32.5 g/dL Normal 29.9-35.2 [facility] Comment on above: Performed By: #### U RTPCR #### [facility] [address] [place] [address] Dr. Jose Mckinney MCV (RBC) [Entitic vol] 92.6 fL Normal 81.0-99.0 [facility] Comment on above: Performed By: #### U RTPCR #### [facility] [address] [place] [address] Dr. Jose Mckinney MONO # 0.4 103/ul Normal 0.3-0.8 [facility] Comment on above: Performed By: #### U RTPCR #### [facility] [address] [place] [address] [address] Jsoe Mckinney Monocytes/100 WBC (Bld) 6.4 % Normal 1.7-12.0 [facility] Comment on above: Performed By: #### U RTPCR #### [facility] [address] [place] [address] Dr. Jose Mckinney NEUT # 3.6 103/ul Normal 1.4-6.5 [facility] Comment on above: Performed By: #### U RTPCR #### [facility] [address] [place] [address] Dr. Jose Mckinney Neutrophils/100 WBC (Bld) 59.5 % Normal 43.0-75.0 [facility] Comment on above: Performed By: #### U RTPCR #### [facility] [address] [place] [address] Dr. Jose Mckinney Platelet mean volume (Bld) [Entitic vol] 11.8 fL Normal 9.5-13.5 [facility] Comment on above: Performed By: #### U RTPCR #### [facility] [address] [place] [address] Dr. Jose Mckinney PLT 175 103/ul Normal 150-450 [facility] Comment on above: Performed By: #### U RTPCR #### [facility] [address] [place] [address] Dr. Jose Mckinney RBC 4.59 106/ul Normal 4.20-5.40 [facility] Comment on above: Performed By: #### U RTPCR #### [facility] [address] [place] [address] Dr. Jose Mckinney WBC 6.1 103/ul Normal 4.0-11.0 [facility] Comment on above: Performed By: #### U RTPCR #### [facility] [address] [place] [address] Dr. Jose Mckinney GLYCOHEMOGLOBIN A1Con 2021 ADA RECOMMENDATION SEE BELOW Normal [facility] Comment on above: Result Comment: ADA RECOMMENDED LIMIT 4.0 - 6.0 ADA THERAPEUTIC TARGET < 7.0 ACTION SUGGESTED > 7.0 Performed By: #### U RTPCR #### [facility] [address] [place] [address] [address] Jose Mckinney Glucose [Mass/Vol] 209 mg/dL Normal [facility] Comment on above: Performed By: #### U RTPCR #### [facility] [address] [place] [address] [address] Jose Mckinney HbA1c (Bld) [Mass fraction] 8.9 % Critically high 4.5-6.2 [facility] Comment on above: Performed By: #### U RTPCR #### [facility] [address] [place] [address] [address] Jose Mckinney IRONon 02-06-2022 Iron [Mass/Vol] 55.0 ug/dL Normal 50.0-170.0 [facility] Comment on above: Performed By: #### C BC #### [facility] [address] [place] [address] Dr. Jose Mckinney LIPID PROFILEon 02-06-2022 CHOL-HDL RATIO NORM SEE BELOW Normal [facility] Comment on above: Result Comment: 3.3 - 4.4 LOW RISK 4.4 - 7.1 AVERAGE RISK 7.1 - 11.0 MODERATE RISK >11.0 HIGH RISK Performed By: #### T SH, CMP, LIPID #### [facility] [address] [place] [address] Dr. Jose Mckinney Cholesterol [Mass/Vol] 215 mg/dL Critically high <=200 [facility] Comment on above: Performed By: #### T SH, CMP, LIPID #### [facility] [address] [place] [address] Dr. Jose Mckinney Cholesterol in HDL [Mass/Vol] 32 mg/dL Critically low 40-60 [facility] Comment on above: Performed By: #### T SH, CMP, LIPID #### [facility] [address] [place] [address] [address] Jose Mckinney Cholesterol in LDL [Mass/Vol] 118.4 mg/dL Normal [facility] Comment on above: Performed By: #### T SH, CMP, LIPID #### [facility] [address] [place] [address] [address] Jose Mckinney Cholesterol.total/Choles terol in HDL [Mass ratio] 6.7 {ratio} Normal [facility] Comment on above: Performed By: #### T MIGUEL ÁNGEL CMP, LIPID #### [facility] [address] [place] [address] [address] Jose Mckinney HDL NORMAL > or = 60 mg/dl - LOW CARDIOVASCULAR RISK <40 mg/dl - HIGH CARDIOVASCULAR RISK Normal [facility] Comment on above: Performed By: #### T MIGUEL ÁNGEL CMP, LIPID #### [facility] [address] [place] [address] [address] Jose Mckinney LDL CALC NORMAL SEE BELOW Normal [facility] Comment on above: Result Comment: <100 mg/dl OPTIMAL 100 - 129 mg/dl NEAR OR ABOVE OPTIMAL 130 - 159 mg/dl BORDERLINE HIGH 160 - 189 mg/dl HIGH >190 mg/dl VERY HIGH Performed By: #### T MIGUEL ÁNGEL CMP, LIPID #### [facility] [address] [place] [address] [address] Jose Mckinney Triglyceride [Mass/Vol] 323 mg/dL Critically high <=150 [facility] Comment on above: Performed By: #### T MIGUEL ÁNGEL CMP, LIPID #### [facility] [address] [place] [address] [address] Jose Mckinney VLDL CALC 64.6 mg/dL Normal [facility] Comment on above: Performed By: #### T MIGUEL ÁNGEL CMP, LIPID #### [facility] [address] [address] [address] Jose Mckinney MAGNESIUMon 02-06-2022 Magnesium [Mass/Vol] 1.8 mg/dL Normal 1.8-2.4 [facility] Comment on above: Performed By: #### U RTPCR #### [facility] [address] [place] [address] [address] Jose Mckinney PHOSPHORUSon 02-06-2022 Phosphate [Mass/Vol] 4.1 mg/dL Normal 2.6-4.7 [facility] Comment on above: Performed By: #### U RTPCR #### [facility] [address] [address] [address] Jose Mckinney PROF 14(COMP METB)on 022 Albumin [Mass/Vol] 3.6 g/dL Normal 3.4-5.0 [facility] Comment on above: Performed By: #### T SH, CMP, LIPID #### [facility] [address] [address] [address] Jose Mckinney Albumin/Globulin [Mass ratio] 0.9 {ratio} Normal [facility] Comment on above: Performed By: #### T SH, CMP, LIPID #### [facility] [address] [place] [address] [address] Jose Mckinney ALP [Catalytic activity/Vol] 70 U/L Normal 46-116 [facility] Comment on above: Performed By: #### T SH, CMP, LIPID #### [facility] [address] [place] [address] [address] Jose Mckinney ALT [Catalytic activity/Vol] 38 U/L Normal 14-59 [facility] Comment on above: Performed By: #### T SH, CMP, LIPID #### [facility] [address] [place] [address] [address] Jose Mckinney Anion gap [Moles/Vol] 11.9 mmol/L Normal [facility] Comment on above: Performed By: #### T SH, CMP, LIPID #### [facility] [address] [address] [address] Jose Mckinney AST [Catalytic activity/Vol] 19 U/L Normal 15-37 [facility] Comment on above: Performed By: #### T SH, CMP, LIPID #### [facility] [address] [place] [address] [address] Jose Mckinney Bilirubin [Mass/Vol] 0.3 mg/dL Normal 0.2-1.0 [facility] Comment on above: Performed By: #### T SH, CMP, LIPID #### [facility] [address] [address] [address] Jose Mckinney Calcium [Mass/Vol] 9.3 mg/dL Normal 8.5-10.1 [facility] Comment on above: Performed By: #### T SH, CMP, LIPID #### [facility] [address] [place] [address] [address] Jose Mckinney Chloride [Moles/Vol] 104 mmol/L Normal 98-107 [facility] Comment on above: Performed By: #### T SH, CMP, LIPID #### [facility] [address] [place] [address] [address] Jose Mckinney CO2 [Moles/Vol] 29.1 mmol/L Normal 21.0-32.0 [facility] Comment on above: Performed By: #### T SH, CMP, LIPID #### [facility] [address] [place] [address] Dr. Jose Mckinney Creatinine [Mass/Vol] 1.31 mg/dL Critically high 0.55-1.02 [facility] Comment on above: Performed By: #### T SH, CMP, LIPID #### [facility] [address] [place] [address] Dr. Jose Mckinney EGFR-AF SCOTTISH 51 mL/min/1.73m2 Critically low >=60 [facility] Comment on above: Performed By: #### T SH, CMP, LIPID #### [facility] [address] [place] [address] Dr. Jose Mckinney EGFR-NON AF SCOTTISH 42 mL/min/1.73m2 Critically low >=60 [facility] Comment on above: Performed By: #### T SH, CMP, LIPID #### [facility] [address] [place] [address] Dr. Jose Mckinney Globulin (S) [Mass/Vol] 3.9 g/dL Normal [facility] Comment on above: Performed By: #### T SH, CMP, LIPID #### [facility] [address] [place] [address] Dr. Jose Mckinney Glucose [Mass/Vol] 185 mg/dL Critically high 74-106 [facility] Comment on above: Performed By: #### T SH, CMP, LIPID #### [facility] [address] [place] [address] Dr. Jose Mckinney Potassium [Moles/Vol] 4.0 mmol/L Normal 3.5-5.1 [facility] Comment on above: Performed By: #### T SH, CMP, LIPID #### [facility] [address] [place] [address] [address] Jose Mckinney Protein [Mass/Vol] 7.5 g/dL Normal 6.4-8.2 [facility] Comment on above: Performed By: #### T SH, CMP, LIPID #### [facility] [address] [place] [address] [address] Jose Mckinney Sodium [Moles/Vol] 141 mmol/L Normal 136-145 [facility] Comment on above: Performed By: #### T MIGUEL ÁNGEL, CMP, LIPID #### [facility] [address] [place] [address] Dr. Jose Mckinney Urea nitrogen [Mass/Vol] 20.0 mg/dL Critically high 7.0-18 .0 [facility] Comment on above: Performed By: #### T MIGUEL ÁNGEL, CMP, LIPID #### [facility] [address] [place] [address] Dr. Jose Mckinney Urea nitrogen/Creatinine [Mass ratio] 15.3 mg/mg Normal [facility] Comment on above: Performed By: #### T MIGUEL ÁNGEL, CMP, LIPID #### [facility] [address] [place] [address] Dr. Jose Mckinney TSHon 02-06-2022 TSH 2.011 uIU/mL Normal 0.358-3.740 [facility] Comment on above: Performed By: #### T SH, CMP, LIPID #### [facility] [address] [place] [address] Dr. Jose Mckinney UA RANDOM W/MICROSCOPICon BACTERIA NONE SEEN Normal NONE SEEN [facility] Comment on above: Performed By: #### U RTPCR #### [facility] [address] [place] [address] Dr. Jose Mckinney Bilirubin Ql (U) Negative Normal NEGATIVE [facility] Comment on above: Performed By: #### U RTPCR #### [facility] [address] [place] [address] Dr. Jose Mckinney CAST NONE SEEN Normal NONE SEEN [facility] Comment on above: Performed By: #### U RTPCR #### [facility] [address] [place] [address] Dr. Jose Mckinney Clarity (U) CLEAR Normal CLEAR [facility] Comment on above: Performed By: #### U RTPCR #### [facility] [address] [place] [address] Dr. Jose Mckinney Color (U) LT. YELLOW Normal YELLOW [facility] Comment on above: Performed By: #### U RTPCR #### [facility] [address] [place] [address] Dr. Jose Mckinney Crystals LM Nom (Urine sed) NONE SEEN Normal NONE SEEN [facility] Comment on above: Performed By: #### U RTPCR #### [facility] [address] [place] [address] Dr. Jose Mckinney Epithelial cells LM Ql (Urine sed) RARE Normal NONE SEEN /RARE [facility] Comment on above: Performed By: #### U RTPCR #### [facility] [address] [place] [address] Dr. Jose Mckinney Glucose Ql (U) Negative Normal NEGATIVE [facility] Comment on above: Performed By: #### U RTPCR #### [facility] [address] [place] [address] Dr. Jose Mckinney Hemoglobin Ql (U) Negative Normal NEGATIVE [facility] Comment on above: Performed By: #### U RTPCR #### [facility] [address] [place] [address] Dr. Jose Mckinney Ketones Ql (U) Negative Normal NEGATIVE [facility] Comment on above: Performed By: #### U RTPCR #### [facility] [address] [place] [address] Dr. Jose Mckinney LEUKOCYTES Negative Normal NEGATIVE [facility] Comment on above: Performed By: #### U RTPCR #### [facility] [address] [place] [address] Dr. Jose Mckinney MUCOUS NONE SEEN Normal NONE SEEN [facility] Comment on above: Performed By: #### U RTPCR #### [facility] [address] [place] [address] Dr. Jose Mckinney Nitrite Ql (U) Negative Normal NEGATIVE [facility] Comment on above: Performed By: #### U RTPCR #### [facility] [address] [place] [address] Dr. Jose Mckinney pH (U) 6.0 [pH] Normal 5-9 [facility] Comment on above: Performed By: #### U RTPCR #### [facility] [address] [place] [address] Dr. Jose Mckinney RBC 0-2 Normal 0-2 [facility] Comment on above: Performed By: #### U RTPCR #### [facility] [address] [place] [address] Dr. Jose Mckinney SPEC GRAVITY 1.010 Normal 1.005-<=1.02 5 [facility] Comment on above: Performed By: #### U RTPCR #### [facility] [address] [place] [address] Dr. Jose Mckinney UA PROTEIN Negative Normal NEGATIVE/ TRACE [facility] Comment on above: Performed By: #### U RTPCR #### [facility] [address] [place] [address] Dr. Jose Mckinney Urobilinogen Qn (U) 0.2 {Betsy'U}/dL Normal 0.2 - 1. 0 [facility] Comment on above: Performed By: #### U RTPCR #### [facility] [address] [place] [address] Dr. Jose Mckinney WBC 0-2 Abnormal NONE SEEN [facility] Comment on above: Performed By: #### U RTPCR #### [facility] [address] [place] [address] Dr. Jose Mckinney URIC ACID SERUMon 02-06-2022 Urate [Mass/Vol] 6.7 mg/dL Critically high 2.6-6.0 [facility] Comment on above: Performed By: #### U RTPCR #### [facility] [address] [place] [address] Dr. Jose Mckinney URINE T PROTEIN CREAT RATIOo n 02-06-2022 Protein (U) [Mass/Vol] 6.0 mg/dL Normal <=12.0 [facility] Comment on above: Performed By: #### I NSULIN #### [facility] [address] [place] [address] Dr. Jose Mckinney UR PROT CREAT RAT 0.19 Normal [facility] Comment on above: Performed By: #### I NSULIN #### [facility] [address] [place] [address] Dr. Jose Mckinney URINE CREAT 32.07 mg/dL Normal 20.00-300.00 [facility] Comment on above: Performed By: #### I NSULIN #### [facility] [address] [place] [address] Dr. Jose Mckinney BNPon 09-04-2021 Natriuretic peptide B (Bld) [Mass/Vol] 1096.0 pg/mL Critically high <=900.0 [facility] Comment on above: Performed By: #### U RTPCR #### [facility] [address] [place] [address] Dr. Jose Mckinney CBC AUTO DIFFon 09-04-2021 BASO # 0.0 103/ul Normal 0.0-0.1 [facility] Comment on above: Performed By: #### C BC #### [facility] [address] [place] [address] Dr. Jose Mckinney Basophils/100 WBC (Bld) 0.3 % Normal 0.2-2.0 [facility] Comment on above: Performed By: #### C BC #### [facility] [address] [place] [address] Dr. Jose Mckinney EO # 0.3 103/ul Normal 0.0-0.7 [facility] Comment on above: Performed By: #### C BC #### [facility] [address] [place] [address] Dr. Jose Mckinney Eosinophils/100 WBC (Bld) 2.1 % Normal 0.9-7.0 [facility] Comment on above: Performed By: #### C BC #### [facility] [address] [place] [address] Dr. Jose Mckinney Erythrocyte distribution width (RBC) [Ratio] 13.7 % Normal 11.0-15.0 [facility] Comment on above: Performed By: #### C BC #### [facility] [address] [place] [address] Dr. Jose Mckinney Hematocrit (Bld) [Volume fraction] 40.1 % Normal 36.0-48.0 [facility] Comment on above: Performed By: #### C BC #### [facility] [address] [place] [address] Dr. Jose Mckinney Hemoglobin (Bld) [Mass/Vol] 13.5 g/dL Normal 12.0-16.0 [facility] Comment on above: Performed By: #### C BC #### [facility] [address] [place] [address] Dr. Jose Mckinney IG # 0.48 10e3/ul Critically high 0.00-0.03 [facility] Comment on above: Performed By: #### C BC #### [facility] [address] [place] [address] Dr. Jose Mckinney IG % 3.7 % Critically high 0.0-0.5 [facility] Comment on above: Performed By: #### C BC #### [facility] [address] [place] [address] Dr. Jose Mckinney LYMPH # 4.2 103/ul Critically high 1.2-3.8 [facility] Comment on above: Performed By: #### C BC #### [facility] [address] [place] [address] Dr. Jose Mckinney Lymphocytes/100 WBC (Bld) 32.5 % Normal 20.5-60.0 [facility] Comment on above: Performed By: #### C BC #### [facility] [address] [place] [address] Dr. Jose Mckinney MANUAL DIFF REQ NO Normal [facility] Comment on above: Performed By: #### C BC #### [facility] [address] [address] [address] Jose Mckinney MCH (RBC) [Entitic mass] 30.7 pg Normal 26.7-34.0 [facility] Comment on above: Performed By: #### C BC #### [facility] [address] [place] [address] Dr. Jose Mckinney MCHC (RBC) [Mass/Vol] 33.7 g/dL Normal 29.9-35.2 [facility] Comment on above: Performed By: #### C BC #### [facility] [address] [place] [address] Dr. Jose Mckinney MCV (RBC) [Entitic vol] 91.1 fL Normal 81.0-99.0 [facility] Comment on above: Performed By: #### C BC #### [facility] [address] [place] [address] Dr. Jose Mckinney MONO # 0.9 103/ul Critically high 0.3-0.8 [facility] Comment on above: Performed By: #### C BC #### [facility] [address] [place] [address] Dr. Jose Mckinney Monocytes/100 WBC (Bld) 7.3 % Normal 1.7-12.0 [facility] Comment on above: Performed By: #### C BC #### [facility] [address] [place] [address] Dr. Jose Mckinney NEUT # 6.9 103/ul Critically high 1.4-6.5 [facility] Comment on above: Performed By: #### C BC #### [facility] [address] [place] [address] Dr. Jose Mckinney Neutrophils/100 WBC (Bld) 54.1 % Normal 43.0-75.0 [facility] Comment on above: Performed By: #### C BC #### [facility] [address] [place] [address] Dr. Jose Mckinney Platelet mean volume (Bld) [Entitic vol] 11.7 fL Normal 9.5-13.5 [facility] Comment on above: Performed By: #### C BC #### [facility] [address] [address] [address] Jose Mckinney PLT 216 103/ul Normal 150-450 [facility] Comment on above: Performed By: #### C BC #### [facility] [address] [place] [address] Dr. Jose Mckinney RBC 4.40 106/ul Normal 4.20-5.40 [facility] Comment on above: Performed By: #### C BC #### [facility] [address] [place] [address] Dr. Jose Mckinney WBC 12.8 103/ul Critically high 4.0-11.0 [facility] Comment on above: Performed By: #### C BC #### [facility] [address] [place] [address] Dr. Jose Mckinney Covid-19 PCR ([facility])on SARS-CoV-2 (COVID-19) RNA CHILO+probe Ql (Unsp spec) Not detected Normal NOT DETECTED [facility] Comment on above: Result Comment: This test is not yet approved or cleared by the [place] FDA. When there are no FDA-approved or cleared tests available, and other criteria are met, FDA can make tests available under an emergency access mechanism called an Emergency Use Authorization (EUA). The EUA for this test is supported by the Leon of Health and Human Service's (HHS's) declaration [...] SARS-CoV-2. Performed By: #### I NSULIN #### [facility] [address] [place] [address] Dr. Jose Mckinney D-DIMERon 09-04-2021 D-DIMER 0.33 mg/L FEU Normal 0.19-0.50 [facility] Comment on above: Performed By: #### I NSULIN #### [facility] [address] [place] [address] Dr. Jose Mckinney D-DIMER COMMENTS SEE BELOW Normal [facility] Comment on above: Result Comment: Incr [...] hospitalization. Performed By: #### I NSULIN #### [facility] [address] [place] [address] Dr. Jose Mckinney PROF 14(COMP METB)on 022 Albumin [Mass/Vol] 3.4 g/dL Normal 3.4-5.0 [facility] Comment on above: Performed By: #### U RTPCR #### [facility] [address] [place] [address] Dr. Jose Mckinney Albumin/Globulin [Mass ratio] 1.0 {ratio} Normal [facility] Comment on above: Performed By: #### U RTPCR #### [facility] [address] [place] [address] Dr. Jose Mckinney ALP [Catalytic activity/Vol] 92 U/L Normal 46-116 [facility] Comment on above: Performed By: #### U RTPCR #### [facility] [address] [place] [address] Dr. Jose Mckinney ALT [Catalytic activity/Vol] 113 U/L Critically high 14-59 [facility] Comment on above: Performed By: #### U RTPCR #### [facility] [address] [place] [address] Dr. Jose Mckinney Anion gap [Moles/Vol] 14.0 mmol/L Normal [facility] Comment on above: Performed By: #### U RTPCR #### [facility] [address] [place] [address] Dr. Jose Mckinney AST [Catalytic activity/Vol] 50 U/L Critically high 15-37 [facility] Comment on above: Performed By: #### U RTPCR #### [facility] [address] [place] [address] Dr. Jose Mckinney Bilirubin [Mass/Vol] 0.4 mg/dL Normal 0.2-1.3 [facility] Comment on above: Performed By: #### U RTPCR #### [facility] [address] [place] [address] Dr. Jose Mckinney Calcium [Mass/Vol] 9.0 mg/dL Normal 8.5-10.1 [facility] Comment on above: Performed By: #### U RTPCR #### [facility] [address] [place] [address] Dr. Jose Mckinney Chloride [Moles/Vol] 100 mmol/L Normal 98-107 [facility] Comment on above: Performed By: #### U RTPCR #### [facility] [address] [place] [address] Dr. Jose Mckinney CO2 [Moles/Vol] 25.4 mmol/L Normal 22.0-30.0 [facility] Comment on above: Performed By: #### U RTPCR #### [facility] [address] [place] [address] Dr. Jose Mckinney Creatinine [Mass/Vol] 1.61 mg/dL Critically high 0.52-1.04 [facility] Comment on above: Performed By: #### U RTPCR #### [facility] [address] [place] [address] Dr. Jose Mckinney EGFR-AF SCOTTISH 41 mL/min/1.73m2 Critically low >=60 [facility] Comment on above: Performed By: #### U RTPCR #### [facility] [address] [place] [address] Dr. Jose Mckinney EGFR-NON AF SCOTTISH 33 mL/min/1.73m2 Critically low >=60 [facility] Comment on above: Performed By: #### U RTPCR #### [facility] [address] [address] [address] Jose Mckinney Globulin (S) [Mass/Vol] 3.4 g/dL Normal T [facility] Comment on above: Performed By: #### U RTPCR #### [facility] [address] [address] [address] Jose Mckinney Glucose [Mass/Vol] 57 mg/dL Critically low 74-106 [facility] Comment on above: Performed By: #### U RTPCR #### [facility] [address] [place] [address] Dr. Jose Mckinney Potassium [Moles/Vol] 3.4 mmol/L Normal 3.4-5.0 [facility] Comment on above: Performed By: #### U RTPCR #### [facility] [address] [address] [address] Jose Mckinney Protein [Mass/Vol] 6.8 g/dL Normal 6.1-8.2 [facility] Comment on above: Performed By: #### U RTPCR #### [facility] [address] [place] [address] Dr. Jose Mckinney Sodium [Moles/Vol] 136 mmol/L Critically low 137-145 [facility] Comment on above: Performed By: #### U RTPCR #### [facility] [address] [place] [address] Dr. Jose Mckinney Urea nitrogen [Mass/Vol] 51.0 mg/dL Critically high 7.0-18 .0 [facility] Comment on above: Performed By: #### U RTPCR #### [facility] [address] [place] [address] Dr. Jose Mckinney Urea nitrogen/Creatinine [Mass ratio] 31.7 mg/mg Normal [facility] Comment on above: Performed By: #### U RTPCR #### [facility] [address] [place] [address] Dr. Jose Mckinney TROPONIN, HIGH SENSITIVITYon 09-04-2021 HSTROP 16.1 pg/mL Normal 4.0-35.5 [facility] Comment on above: Result Comment: CUT- OFF POINTS HAVE BEEN ESTABLISHED BASED ON THE FOURTH UNIVERSAL DEFINITIONS OF MYOCARDIAL INFARCTION. THE UPPER REFERENCE LIMIT (URL) OF TROPONIN, DEFINED THE 99TH PERCENTILE OF cTnI DISTRIBUTION IN A REFERENCE POPULATION, HAS BEEN CONFIRMED THE DECISION THRESHOLD FOR SD DIAGNOSIS. Performed By: #### U RTPCR #### [facility] [address] [address] [address] Jose Mckinney XR CHEST 1 Von [...] AFIA KOHLI Date: 2021-09-04 20:53 Normal [facility] XR CHEST 2 Von 08-29-2021 XR CHEST [...] AFIA HALL Date: 2021-08-29 14:43 Normal [facility] Lab Reporton 11-10-2020 Cardiovascular Lab Report [facility] Patient Name: [facility] MR #: [id number] Department of Physician: Huy Howell M.D. Division of Service Date: 11/09/2020 Cardiology Birthdate: 1970 Adult Cardiovascular Room #: [address] [address] [address] [id number] Cardiovascular Laboratory Report FINAL IMPRESSION: 1. Mild [...] Chatterjee as scheduled. 5. Follow up with [facility] Cardiology on an as-needed basis. PROCEDURES: [...] the left radial artery was obtained. A 6-Occitan glide sheath was inserted without difficulty. Bilateral [...] Valadez M.D. Date Trans: 11/10/2020 07:37 A/josefa [id number] cc: Sea Chatterjee M.D. [address] [address] [facility] Vital Signs Date Time Vital Sign Value Performing Clinician Facility 10-09-2023 [id number] Body height 160.02 cm CONTRACT ATTORNEY-C Ann Fournier Work Phone: [facility] 10-09-2023 15:26-0400 Body mass index (BMI) [Ratio] 45.8 kg/m2 CONTRACT ATTORNEY-C Ann Fournier Work Phone: [facility] 10-09-2023 15:26-0400 Body temperature 95.9 [degF] CONTRACT ATTORNEY-C Ann Fournier Work Phone: [facility] 10-09-2023 15:26-0400 Body weight 117.25 kg CONTRACT ATTORNEY-C Ann Fournier Work Phone: [facility] 10-09-2023 15:26-0400 Diastolic blood pressure 62 mm[Hg] CONTRACT ATTORNEY-C Ann Fournier Work Phone: [facility] 10-09-2023 15:26-0400 Heart rate 75 /min CONTRACT ATTORNEY-C Ann Fournier Work Phone: [facility] 10-09-2023 15:26-0400 Respiratory rate 18 /min CONTRACT ATTORNEY-C Ann Fournier Work Phone: [facility] 10-09-2023 15:26-0400 SaO2% (BldA) [Mass fraction] 96 % CONTRACT ATTORNEY-C Ann Fournier Work Phone: [facility] 10-09-2023 15:26-0400 Systolic blood pressure 110 mm[Hg] CONTRACT ATTORNEY-C Ann Fournier Work Phone: [facility] 08-14-2023 10:23-0400 Body height 160 cm Renee Gruber CASE FITTER-HEADING AND PRIMING OPERATOR [facility] 08-14-2023 10:23-0400 Body mass index (BMI) [Ratio] 49.03 kg/m2 Renee Gruber CASE FITTER-HEADING AND PRIMING OPERATOR [facility] 08-14-2023 10:23-0400 Body weight 125.56 kg Renee Gruber CASE FITTER-HEADING AND PRIMING OPERATOR Work Phone: [employer] 08-14-2023 10:23-0400 Diastolic blood pressure 76 mm[Hg] Renee Gruber CASE FITTER-HEADING AND PRIMING OPERATOR [facility] 08-14-2023 10:23-0400 Heart rate 110 /min Renee Gruber CASE FITTER-HEADING AND PRIMING OPERATOR Work Phone: [employer] 08-14-2023 10:23-0400 Systolic blood pressure 144 mm[Hg] Renee Gruber CASE FITTER-HEADING AND PRIMING OPERATOR Work Phone: [employer] 04-30-2023 11:00-0500 Body height 160.02 cm Anila Jasmine Other [employer] Other 04-30-2023 11:00-0500 Body mass index (BMI) [Ratio] 51.54 kg/m2 Anila Jasmine Other [employer] Other 04-30-2023 11:00-0500 Body temperature 96.4 [degF] Anila Jasmine Other [employer] Other 04-30-2023 11:00-0500 Body weight 132 kg Anila Jasmine Other [employer] Other 04-30-2023 11:00-0500 Diastolic blood pressure 84 mm[Hg] Anila Jasmine Other [employer] Other 04-30-2023 11:00-0500 Respiratory rate 18 /min Anila Jasmine Other [employer] Other 04-30-2023 11:00-0500 SaO2% (BldA) [Mass fraction] 96 % Anila Jasmine Other [employer] Other 04-30-2023 11:00-0500 Systolic blood pressure 133 mm[Hg] Anila Jasmien Other [employer] Other 11-11-2022 14:45-0400 Body height 160.02 cm Misha Anahi Other [employer] Other 11-11-2022 14:45-0400 Body mass index (BMI) [Ratio] 49.24 kg/m2 Misha Anahi Other [employer] Other 11-11-2022 14:45-0400 Body weight 126.1 kg Misha Anahi Other [employer] Other 10-07-2022 14:30-0400 Body height 160.02 cm Misha Anahi Other [employer] Other 10-07-2022 14:30-0400 Body mass index (BMI) [Ratio] 50.41 kg/m2 Misha Christian Other [employer] Other 10-07-2022 14:30-0400 Body weight 129.09 kg Misha Christian Other [employer] Other 08-15-2022 15:20-0400 Body height 160.02 cm Anila Jasmine Other [employer] Other 08-15-2022 15:20-0400 Body mass index (BMI) [Ratio] 48.35 kg/m2 Anila Jasmine Other [employer] Other 08-15-2022 15:20-0400 Body temperature 97.4 [degF] Anila Jasmine Other [employer] Other 08-15-2022 15:20-0400 Body weight 123.83 kg Anila Jasmine Other [employer] Other 08-15-2022 15:20-0400 Diastolic blood pressure 70 mm[Hg] Anila Jasmine Other [employer] Other 08-15-2022 15:20-0400 Respiratory rate 18 /min Anila Jasmine Other [employer] Other 08-15-2022 15:20-0400 SaO2% (BldA) [Mass fraction] 99 % Anila Jasmine Other [employer] Other 08-15-2022 15:20-0400 Systolic blood pressure 132 mm[Hg] Anila Jasmine Other [employer] Other 02-11-2022 15:40-0400 Body height 160.02 cm Anila Jasmine Other [employer] Other 02-11-2022 15:40-0400 Body mass index (BMI) [Ratio] 50.37 kg/m2 Anila Jasmine Other [employer] Other 02-11-2022 15:40-0400 Body temperature 96.6 [degF] Anila Jasmine Other [employer] Other 02-11-2022 15:40-0400 Body weight 129 kg Anila Jasmine Other [employer] Other 02-11-2022 15:40-0400 Diastolic blood pressure 54 mm[Hg] Anila Jasmine Other [employer] Other 02-11-2022 15:40-0400 Respiratory rate 18 /min Anila Jasmine Other [employer] Other 02-11-2022 15:40-0400 SaO2% (BldA) [Mass fraction] 96 % Anila Jasmine Other [employer] Other 02-11-2022 15:40-0400 Systolic blood pressure 131 mm[Hg] Anila Jasmine Other [employer] Other 10-22-2021 15:30-0400 Body height 160.02 cm Arthur Olexa Other [employer] Other 10-22-2021 15:30-0400 Body mass index (BMI) [Ratio] 49.95 kg/m2 Arthur Moy Other [employer] Other 10-22-2021 15:30-0400 Body weight 127.92 kg Arthur Farrellxa Other [employer] Other 08-02-2021 15:40-0500 Body height 160.02 cm Anila Jasmine Other [employer] Other 08-02-2021 15:40-0500 Body mass index (BMI) [Ratio] 50.66 kg/m2 Anila Jasmine Other [employer] Other 08-02-2021 15:40-0500 Body weight 129.73 kg Anila Jasmine Other [employer] Other 08-02-2021 15:40-0500 Diastolic blood pressure 80 mm[Hg] Anila Jasmine Other [employer] Other 08-02-2021 15:40-0500 Respiratory rate 18 /min Anila Jasmine Other [employer] Other 08-02-2021 15:40-0500 SaO2% (BldA) [Mass fraction] 96 % Anila Jasmine Other [employer] Other 08-02-2021 15:40-0500 Systolic blood pressure 132 mm[Hg] Anila Jasmine Other [employer] Other Encounters Encounter Date Encounter Type Care Provider Facility Start: 12-18-2023 End: 12-18-2023 ambulatory [facility] Start: 11-13-2023 End: 11-13-2023 ambulatory ENEDINA Nickerson HEATHER Not Available Start: 11-10-2023 End: 11-10-2023 ambulatory IRMA NGUYEN Not Available Start: 11-03-2023 End: 11-03-2023 ambulatory [facility] Start: 10-09-2023 End: 10-09-2023 ambulatory CONTRACT ATTORNEY-C Ann Fournier Work Phone: [facility] Work Phone: Start: 10-09-2023 End: 10-09-2023 Patient encounter procedure CONTRACT ATTORNEY-C Ann Fournier Work Phone: [facility]p Work Phone: Start: 10-08-2023 Non-patient / Non-visit CONTRACT ATTORNEY-C Margaux Fournier Work Phone: [facility] Work Phone: Start: 09-04-2023 End: 09-04-2023 Orders Only Jeni Bonilla [facility] General Surgery Comment on above: Dysphagia, unspecifi ed type Start: 09-03-2023 End: 09-03-2023 Orders Only Not In System Ref Prov [facility] General Surgery Start: 09-03-2023 End: 09-03-2023 Departed Referred CONTRACT ATTORNEY-C Ann Fournier Work Phone: [facility] Start: 08-29-2023 ambulatory ANN FOURNIER [facility] Start: 08-14-2023 End: 08-15-2023 Emergency department patient visit SHYANN JONES [facility] Start: 08-14-2023 End: 08-14-2023 ambulatory RENEE GRUBER [facility] Start: 08-14-2023 End: 08-14-2023 Office outpatient new 30 minutes Renee Gruber CASE FITTER-HEADING AND PRIMING OPERATOR [facility] Comment on above: Dysphagia, unspecifi ed type (Primary Dx); Personal history of ovarian cancer; Morbid obesity with BMI of 45.0-49.9, adult ([facility] Start: 06-26-2023 End: 06-26-2023 ambulatory ENEDINA ROMERO Not Available Start: 04-30-2023 Office outpatient vi sit 15 minutes Anila Granados [facility] Start: 04-30-2023 End: 04-30-2023 ambulatory CONTRACT ATTORNEY-C Ann Bianchi Shantanu Work Phone: [employer] Other Start: 04-30-2023 End: 04-30-2023 Patient encounter procedure CONTRACT ATTORNEY-C Ann Velamer Work Phone: [facility] [place] Work Phone: Start: 04-17-2023 End: 04-17-2023 ambulatory ENEDINA ROMERO Not Available Start: 11-11-2022 (Proc F/U) Procedure F/U Misha Christian [facility] Start: 11-11-2022 End: 11-11-2022 ambulatory Misha Christian Other [employer] Other Start: 10-24-2022 End: 10-24-2022 ambulatory Arthur Moy Other [employer] Other Start: 10-24-2022 Telephone encounter Arthur Moy [facility] Start: 10-07-2022 End: 10-07-2022 ambulatory Misha Christian Other [employer] Other Start: 10-07-2022 Office outpatient vi sit 15 minutes Misha Christian [facility] Start: 09-23-2022 End: 09-23-2022 ambulatory Arthur Moy Facility:[facility] Start: 09-23-2022 End: 09-23-2022 ambulatory MD Arthur oMy Work Phone: [facility] Work Phone: Start: 09-23-2022 End: 09-23-2022 Patient encounter procedure MD Arthur Olexa Work Phone: [facility] Start: 08-19-2022 End: 08-19-2022 Patient encounter procedure MD Arthur Moy Work Phone: [facility] Start: 08-19-2022 End: 08-19-2022 ambulatory MD Arthur Moy Work Phone: [facility] Work Phone: Start: 08-19-2022 Office outpatient ne w 30 minutes Arthur Olexa [facility] Start: 08-15-2022 End: 08-15-2022 ambulatory Anila Jasmine Other [employer] Other Start: 08-15-2022 Office outpatient vi sit 25 minutes Anila Jasmine [facility] Start: 08-13-2022 End: 08-14-2022 ambulatory ANILA JASMINE Facility:[facility] Start: 07-08-2022 End: 07-09-2022 ambulatory Afia Hall Facility:[facility] Start: 05-13-2022 End: 05-13-2022 ambulatory ANN FOURNIER Facility:[facility] Start: 02-11-2022 End: 02-11-2022 ambulatory Anila Jasmine Other [employer] Other Start: 02-11-2022 Office outpatient vi sit 25 minutes Anila Jasimne [facility] Start: 02-06-2022 End: 02-07-2022 ambulatory ANN FOURNIER Facility:[facility] Start: 10-22-2021 End: 10-22-2021 ambulatory Arthur Olexa Other [employer] Other Start: 10-22-2021 Office outpatient ne w 30 minutes Arthur Olexa [facility] Start: 09-07-2021 End: 09-07-2021 ambulatory ANN FOURNIER Facility:[facility] Start: 09-04-2021 End: 09-05-[address] AZEEM FITZGERALD Facility:[facility] Start: 08-29-2021 End: 08-30-2021 ambulatory DENYS RICH . Facility:[facility] Start: 08-02-2021 End: 08-02-2021 ambulatory Anila Jasmine Other [employer] Other Start: 08-02-2021 Office outpatient vi sit 15 minutes Anilajames Sellersr [facility] Start: 11-09-2020 End: 11-10-2020 ambulatory SEA HOY Facility:[facility] Start: 10-31-2020 End: 11-01-2020 ambulatory SEA HOY Facility:[facility] Start: 11-06-2017 Ambulatory ANTONIO BRIAN Facility :[id number] Start: 11-06-2017 Ambulatory Facility:[id number] Procedures Date Procedure Procedure Detail Performing Clinician Start: 09-03-2023 Esophagogastroduodenoscopy Renee burden CASE FITTER-HEADING AND PRIMING OPERATOR Work Phone: Start: 09-03-2023 POCT REHAB GLUCOSE [...] 08-13-2024 Adult BMI Screening [facility] Start: 08-13-2024 Tobacco Screening Tobacco Screening [employer] Start: 02-01-2024 Influenza vaccination Influenza Vaccine [employer] [facility] Start: 08-14-2023 End: 08-13-2024 RF Esophagus Views W contrast PO Fluoroscopy esophagus Imaging Routine Dysphagia, unspecified type Expected: 08/14/2023, Expires: 08/13/2024 [employer] Work Phone: Comment on above: Expected: 08/14/2023, Expires: Start: 09-01-2023 Influenza vaccination Influenza Vaccine [employer] [facility] Start: 1989 Screening for malignant neoplasm of cervix Pap Smear [facility] Start: 1987 DTaP,Tdap and Td Vaccines (1 - Tdap) DTaP,Tdap and Td Vaccines (1 - Tdap) [facility] Start: 1986 Adult BMI Follow Up Plan Adult BMI Follow Up Plan [facility] Start: 1980 Depression Screening [facility]ening [facility] End: 08-13-2024 Esophagogastroduodenoscopy EGD GI Routine Dysphagia, unspecified type 1 Occurrences starting 08/14/2023 until 08/13/2024 [facility] [facility] Comment on above: 1 Occurrences starting 08/14/2023 until 08/13/2024 Renal function 2000 panel - Serum or Plasma [facility] Payers Date Payer Category Payer Medicare ANTH MEDICARE [facility] [employer] [id number] 2023-Present [phone] [address] [place] [address] [id number] 2022 Self-pay [id number] 2017 Medicaid MEDICAID [facility] EDICAID [id number] 2017-Present [phone] [address] [place] [address] [id number] 2008 Unknown [id number] 1970 Unknown [id number] 2.16.840.1.469075.3.579.2.647 1970 Unknown [id number] 2.16.840.1.752987.3.579.2.647 1968 Unknown [id number] 2.16.840.1.676695.3.579.2.593 1968 Unknown [id number] 2.16.840.1.823521.3.579.2.593 1968 Unknown [id number] 2.16.840.1.585943.3.579.2.593 1968 Unknown [id number] 2.16.840.1.421634.3.579.2.593 1968 Unknown [id number] 2.16.840.1.392784.3.579.2.593 1968 Unknown [id number] 2.16.840.1.083796.3.579.2.593 1968 Unknown [id number] 2.16.840.1.875948.3.579.2.593 1968 Unknown [id number] 2.16.840.1.489928.3.579.2.593 1968 Unknown [id number] 2.16.840.1.277359.3.579.2.1286 1968 Unknown [id number] 2.16.840.1.107915.3.579.2.1286 1968 Unknown [id number] 2.16.840.1.628620.3.579.2.1286 1968 Unknown [id number] 2.16.840.1.439373.3.579.2.1286 1968 Unknown [id number] 2.16.840.1.885560.3.579.2.1286 1968 Unknown [id number] 2.16.840.1.425936.3.579.2.1259 1968 Unknown [id number] 2.16.840.1.824601.3.579.2.9 1968 Unknown [id number] 2.16.840.1.957817.3.579.2.1259 1968 Unknown [id number] 1970 Unknown [id number] 1961 Medicaid [id number] 1961 Unknown [id number] Unknown [id number] Unknown [id number] Social History Date Type Detail Facility Unknown if ever smoked [employer] Other Start: 07-13-2020 End: 08-14-2023 [facility] Start: 1970 Sex Assigned At Female F [facility] Start: 08-14-2023 End: 10-09-2023 Tobacco smoking status NHIS [facility] Start: 08-14-2023 Tobacco use and exposure Smokeless tobacco non-user [facility] [address] [facility] Start: 08-14-2023 Alcohol intake Ex-drinker (finding) [facility] Start: 07-13-2020 End: 08-14-2023 History of Social function [facility] [address] System Childcare Unknown [facility] [employer] [facility] Start: 1970 Sex Assigned At Not on file P TownsendFAZUA [facility] Medical Equipment Procedure Code Equipment Code Equipment Origin al Text Equipment Identifier Dates Start: 11-05-2016 Clinical Notes 08-02-2021 to 12-18-2023 Renee Gruber, CASE FITTER-HEADING AND PRIMING OPERATOR - 08/14/2023 10:00 AM EDT Note Date & Type Note Facility 12-18-2023 Note [facility] Cardiology Clinic Note Chief Complaint: wants to [...] history of Abnormal ECG, Asthma, Diabetes mellitus ([facility]), and Hyperlipidemia. Surgical History She has a [...] kg/m??? Physical Examination: (more content not included)... [facility] 11-03-2023 Note [facility] Cardiology Clinic Note Chief Complaint: Patient here [...] Dr. Andrew already scheduled 5. Follow-up with [facility] cardiology on an as-needed basis MARY [...] pain Paroxysmal supraventri (more content not included)... [facility] 08-14-2023 History of Present illness Narrative [...] Date Anemia Asthma Diabetes type 2, controlled ([facility]) GI problem Herniation of right [...] tablet,chewable, Chew and swallow., Disp: , Rfl: [id number] mg capsule, Take by mouth., Disp: , [...] patient/family/caregiver Referring and communicating with other health health care administrator Dysphagia, unspecified type [R13.10] SHAYLA RUBIO [facility] [place] This note was created with the assistance of a speech recognition program. While intending to generate a timely document that accurately reflects the content of the visit, no guarantee can be provided that every grammatical or spelling mistake has been or will be identified or corrected. Thank you for your understanding. SHAYLA Rubio 08/14/23 1058 documented in this encounter [facility] 04-30-2023 Evaluation note Encounter Date Diagnosis [...] and vitamin D are within the goal. [employer] Other 05-08-2023 Evaluation note* Encounter Date Diagnosis [...] as documented in the electronic medical record. [facility] Other 03-20-2023 Evaluation note* Encounter Date Diagnosis [...] 2 diabetes mellitus without complication, unspecified whether marine oil terminal superintendent insulin use (ICD-10 - E11.9) Jul, Cervical spine pain (ICD-10 - M54.2) [employer] Other 03-16-2023 Evaluation note* Encounter Date Diagnosis [...] the PCP office to see if the director case management can help her with the subsidized housing. [...] and vitamin D are within the goal. [employer] Other 02-07-2023 NotePROCEDURE: XR HIP LT 2 [...] Electronically authenticated by: AFIA HALL Date: 2022-07-09 07:42[facility]09-12-2022 Evaluation note* Encounter Date Diagnosis Assessment [...] the PCP office to see if the director case management can help her with the subsidized housing. [...] currently does not take PAULETTE or ARB. [employer] Other 05-23-2022 Evaluation note* Encounter Date Diagnosis [...] MRI to assess for rotator cuff tear. [employer] Other 03-03-2022 Evaluation note* Encounter Date Diagnosis [...] currently does not take PAULETTE or ARB. [employer] Other Evaluation noteNo assessment information available [facility] Work Phone: Evaluation noteNo InformationNort Ornicept Other Evaluation noteNort Ornicept Other Evaluation note* Diagnosis Dysphagia, unspecified type- Primary Personal history of ovarian cancer Personal history of malignant neoplasm of ovary Morbid obesity with BMI of 45.0-49.9, adult ([facility]) [facility] Diagnosis Dysphagia, unspecified type documented in this encounter [facility]* Diagnosis Onset Date Resolution Status CKD (chronic kidney disease) stage 3, GFR 30-59 ml/min acute [id number] acute Hyperuricemia acute Hypoparathyroidism acute 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 disease acute Vitamin D deficiency acute [facility] Work Phone: History general Narrative - Reported* [...] History SEE ABOVE SURGERY Hospitalization History [facility] 02/2020 [employer] Other History general Narrative - Reported* Type [...] History [facility] 02/2020 [employer] Other History general Narrative - ReportedNortDynamo Media Other InstructionsNot on filedocumented in this encounter [facility] filedocumented in this encounter [facility]Not on filedocumented in this encounter [facility] Summary Purpose Family History No [...] kidney disease) stage 3, GFR 30-59 ml/min [id number] Hyperuricemia Hypoparathyroidism Type 2 diabetes mellitus with diabetic chronic kidney disease Vitamin D deficiency Reason for Referral Specialty Diagnoses / Procedures Referred By Marina ruiz Referred To Contact Diagnoses Dysphagia, unspecified type Procedures Fluoroscopy esophagus Renee Gruber, CASE FITTER-HEADING AND PRIMING OPERATOR [address] [id number] Referral ID Status Reason Start Date Expiration Date V isits Requested Visits Authorized [id number] Pending Review 08/14/2023 08/13/2024 1 1 Additional Source Comments INFORMATION SOURCE (unrecogn ized section and content) DATE CREATED AUTHOR 11/18/2017 [facility] DATE CREATED AUTHOR AUTHOR'S ORGANIZ ATION 11/18/2017 [facility] DATE CREATED AUTHOR AUTHOR'S ORGANIZ ATION 11/16/2020 [facility] DATE CREATED AUTHOR AUTHOR'S ORGANIZ ATION 08/20/2022 [facility] DATE CREATED AUTHOR AUTHOR'S ORGANIZ ATION 08/16/2023 [facility] DATE CREATED AUTHOR AUTHOR'S ORGANIZ ATION 09/02/2023 [facility] DATE CREATED AUTHOR AUTHOR'S ORGANIZ ATION 09/06/2023 [facility] DATE CREATED AUTHOR AUTHOR'S ORGANIZ ATION 11/15/2023 [facility] DATE CREATED AUTHOR AUTHOR'S ORGANIZ ATION 12/22/2023 [facility] REASON FOR VISIT (unrecogniz ed section [...] Active Anila Granados MD Attending Provider Active Ironer Or Presser Relationship Specialty Start Date End Date Ann Fournier APRN-HEADING AND PRIMING OPERATOR [address], [place] [address] PCP - General Family Medicine 08/14/23 Ironer Or Presser Relationship Specialty Start Date End Date Ann Fournier APRN-HEADING AND PRIMING OPERATOR [address] [facility], [place] [address] PCP - General Family Medicine 08/14/23 Team Status: Inactive Member Role Status Dates CAROLYN Fitzgerald Primary Care Provider Active Start: September 03, 2023 End: September 03, 2023 Antonio Boo DO Attending Provider Active Start: September 03, 2023 End: September 03, 2023 Ironer Or Presser Relationship Specialty Start Date End Date Ann Fournier CASE FITTER-HEADING AND PRIMING OPERATOR [address] [facility], [facility] [address] PCP - General Family Medicine 08/14/23 Team [...] BE BASED ON THE PRIMARY CLINICAL RECORDS. [employer] provides no warranty or guarantee of the accuracy or completeness of information in this document.
[2024-01-18 13:58] VITALS: PULSE 87; O2SAT 99
--- NOTE | 2024-01-19 11:37 | ED_ITS ---
HPI HPI - General Adult General Chief complaint: Skin/Abscess/Foreign Body Stated complaint: RIGHT SIDE PAIN, SENSITIVITY, POSSIBLE SPIDER BITE Time Seen by Provider: 01/18/24 12:58 Source: patient Mode of arrival: Wheelchair Limitations: no limitations History of Present Illness HPI narrative: 53-year-old female to the emergency department for the evaluation of wounds to her abdomen. Patient reports that she has had 1 large and 2 small ulcerated lesions to the right side of her pannus that have been present for over a month. She has been treated by her family doctor for these wounds. She has been on Levaquin and doxycycline. Patient reports that the pain keeps her up at night and she would like something for the pain. She has no fever, sweats, chills. She is otherwise at her baseline health. She has not followed up with wound care. She is diabetic. Related Data Home Medications ?Medication ?Instructions ?Recorded ?Confirmed Lactobacillus acidophilus 100 mg PO DAILY 08/26/23 09/03/23 albuterol 90 mcg/actuation aerosol 90 mcg inhalation .every 4 hours 08/26/23 09/03/23 inhaler PRN shortness of breath allopurinol 300 mg tablet 300 mg PO DAILY 08/26/23 09/03/23 ascorbic acid (vitamin C) 250 mg 250 mg PO DAILY 08/26/23 09/03/23 chewable tablet biotin 5,000 mcg disintegrating 10,000 mcg PO DAILY 08/26/23 09/03/23 tablet budesonide-formoterol HFA 80 1 puff inhalation BID 08/26/23 09/03/23 mcg-4.5 mcg/actuation aerosol inhaler (Symbicort) cholecalciferol (vitamin D3) 50 2,000 mcg PO DAILY 08/26/23 09/03/23 mcg (2,000 unit) disintegrating tablet cyclobenzaprine 10 mg tablet 10 mg PO QAM 08/26/23 09/03/23 dulaglutide 4.5 mg/0.5 mL 4.5 mg subcut QWEEK 08/26/23 09/03/23 subcutaneous pen injector ([facility]) fenofibrate 160 mg tablet 160 mg PO DAILY 08/26/23 09/03/23 ferrous sulfate 325 mg (65 mg 325 mg PO DAILY 08/26/23 09/03/23 iron) tablet fexofenadine 180 mg tablet 180 mg PO DAILY 08/26/23 09/03/23 fluticasone propionate 50 1 spray intranasal DAILY PRN nasal 08/26/23 09/03/23 mcg/actuation nasal congestion spray,suspension (Flonase Allergy Relief) furosemide 40 mg tablet 40 mg PO DAILY 08/26/23 09/03/23 insulin regular hum U-500 conc 500 150 unit subcut QAM 08/26/23 09/03/23 unit/mL subcutaneous soln (Humulin R U-500 (Concentrated) Insulin) insulin regular hum U-500 conc 500 150 unit subcut QNOON 08/26/23 09/03/23 unit/mL subcutaneous soln (Humulin R U-500 (Concentrated) Insulin) insulin regular hum U-500 conc 500 150 unit subcut QPM 08/26/23 08/26/23 unit/mL subcutaneous soln (Humulin R U-500 (Concentrated) Insulin) inulin 2 gram chewable tablet 2 g PO DAILY 08/26/23 09/03/23 (Fiber Gummies) levothyroxine 175 mcg capsule 150 mcg PO DAILY 08/26/23 09/03/23 metoprolol tartrate 50 mg tablet 50 mg PO DAILY 08/26/23 09/03/23 montelukast 10 mg tablet 10 mg PO DAILY 08/26/23 09/03/23 nystatin 100,000 unit/gram topical 1 applic topical DAILY 08/26/23 09/03/23 cream ondansetron 4 mg disintegrating 4 mg PO DAILY PRN nausea and 08/26/23 09/03/23 tablet vomiting pantoprazole 40 mg tablet,delayed 40 mg PO BID 08/26/23 09/03/23 release (Protonix) pregabalin 75 mg capsule (Lyrica) 75 mg PO DAILY 08/26/23 09/03/23 tiotropium bromide 1.25 2 inh inhalation DAILY 08/26/23 09/03/23 mcg/actuation mist for inhalation famotidine 40 mg tablet (Pepcid) 40 mg PO DAILY 08/27/23 09/03/23 Previous Rx's ?Medication ?Instructions ?Recorded acetaminophen 300 mg-codeine 30 mg 1 tab PO Q6H PRN pain 5 days #20 12/26/23 tablet tabs hydrocodone 5 mg-acetaminophen 300 1 tab PO Q6H PRN pain 3 days #12 01/18/24 mg tablet tabs hydrocodone 5 mg-acetaminophen 325 1 tab PO Q6H PRN pain 3 days #12 01/18/24 mg tablet tabs Allergies Allergy/AdvReac Type Severity Reaction Status Date / Time azithromycin Allergy Severe Hives Verified 12/26/23 14:28 cephalexin Allergy Severe Hives Verified 12/26/23 14:28 ciprofloxacin Allergy Severe Hives Verified 12/26/23 14:28 Penicillins Allergy Severe Anaphylaxis Verified 12/26/23 14:28 sulfamethoxazole Allergy Severe Anaphylaxis Verified 12/26/23 14:28 sulfanilamide Allergy Severe Anaphylaxis Verified 12/26/23 14:28 trimethoprim Allergy Severe Anaphylaxis Verified 12/26/23 14:28 acetaminophen [From Percocet] AdvReac Severe Vomiting Verified 12/26/23 14:28 aspirin AdvReac Severe Vomiting Verified 12/26/23 14:28 cefprozil [From Cefzil] AdvReac Severe Hives Verified 12/26/23 14:28 moxifloxacin [From Avelox] AdvReac Severe Hives Verified 12/26/23 14:28 oxycodone [From Percocet] AdvReac Severe Vomiting Verified 12/26/23 14:28 Opioid HPI Opioid Management Most Recent Opioid Data: Last Pain Scale 10 01/18/24 13:10 Review of Systems ROS Status of ROS 10 or more systems reviewed and unremark able except as noted in history and below [facility] Medical History (Updated 01/18/24 @ 13:44 by Levy Burnham MD) Fall ?W19.XXXA - Unspecified fall, initial encounter (ICD-10) Concussion ?S06.0XAA - Concussion with loss of consciousness status unknown, initial encounter (ICD-10) Obesity ?E66.9 - Obesity, unspecified (ICD-10) Delayed recovery from anesthesia Postoperative nausea and vomiting ?R11.2 - Nausea with vomiting, unspecified (ICD-10) ?Z98.890 - Other specified postprocedural states (ICD-10) Dysphagia ?R13.10 - Dysphagia, unspecified (ICD-10) Ovarian cancer ?C56.9 - Malignant neoplasm of unspecified ovary (ICD-10) Osteoarthritis ?M19.90 - Unspecified osteoarthritis, unspecified site (ICD-10) Nerve damage of right foot ?G57.91 - Unspecified mononeuropathy of right lower limb (ICD-10) Nerve damage of left foot ?G57.92 - Unspecified mononeuropathy of left lower limb (ICD-10) Hypothyroidism ?E03.9 - Hypothyroidism, unspecified (ICD-10) Hypertension ?I10 - Essential (primary) hypertension (ICD-10) High cholesterol ?E78.00 - Pure hypercholesterolemia, unspecified (ICD-10) Herniation of right side of L4-L5 intervertebral disc ?M51.26 - Other intervertebral disc displacement, lumbar region (ICD-10) GI problem ?R19.8 - Other specified symptoms and signs involving the digestive system and abdomen (ICD-10) Diabetes 1.5, managed as type 2 ?E13.9 - Other specified diabetes mellitus without complications (ICD-10) Asthma ?J45.909 - Unspecified asthma, uncomplicated (ICD-10) Anemia ?D64.9 - Anemia, unspecified (ICD-10) Surgical History (Updated 08/27/23 @ 13:[address] RN) H/O: hysterectomy ?Z90.710 - Acquired absence of both cervix and uterus (ICD-10) Hx of tonsillectomy ?Z90.89 - Acquired absence of other organs (ICD-10) Total knee replacement status ?Z96.659 - Presence of unspecified artificial knee joint (ICD-10) S/P surgery on nasal septum ?Z98.890 - Other specified postprocedural states (ICD-10) History of arthroscopic knee surgery ?Z98.890 - Other specified postprocedural states (ICD-10) History of discectomy ?Z98.890 - Other specified postprocedural states (ICD-10) History of cholecystectomy ?Z90.49 - Acquired absence of other specified parts of digestive tract (ICD- 10) History of appendectomy ?Z90.49 - Acquired absence of other specified parts of digestive tract (ICD- 10) Family History (Updated 08/27/23 @ 13:[address], RIGOBERTO) Mother Arthritis Asthma Family history of hypertension Hyperlipidemia Family history of stroke Father Arthritis Family history of diabetes mellitus Family history of hypertension Alzheimer's disease Other Family history of cancer Social History (Updated 08/27/23 @ 13:[address], RIGOBERTO) Within the past year, how often did you have a drink containing alcohol: never Score interpretation: A score less than 3 is consistent with normal alcohol consumption. Smoking status: Never smoker Second hand tobacco smoke exposure: No Non-prescribed substance use: denies use Previous occupational history: disability Highest level of school completed/degree received: some college, no degree Exam Narrative Exam Narrative: VITALS: I have reviewed the triage vital signs. GENERAL: Morbidly obese adult female in no distress NEURO: Alert and oriented. Moves all extremities. Face is symmetric and expressive. EYES: PERRL. No scleral icterus or conjunctival injection. No discharge. HENT: Normocephalic, atraumatic. Hearing is grossly intact. Nares grossly patent and without discharge. Mucous membranes moist. NECK: No JVD. Patient moves neck without restriction. CARDIO: Rhythm regular. Normal rate. No murmur, rub, or gallop. Pulses equal bilaterally in the upper and lower extremity. No lower extremity edema. PULM: Lungs clear to auscultation in all cox. No wheezes, rales, or rhonchi. No conversational dyspnea. No splinting, stridor, or accessory muscle use. GI/: Abdomen is soft and non-tender. Normoactive bowel sounds. EXTREMITIES: Symmetric muscle bulk. No joint swelling. No clubbing, cyanosis, or deformity. SKIN: Warm and dry. Normal turgor. There is an approximately 7 cm oval ulceration on her right lateral pannus as well as 2 smaller dime sized areas of ulceration. There is no discharge, erythema, warmth, Crepitus, lymphangitic streaking. PSYCH: Mood, affect, and interaction is appropriate to the setting. Constitutional Vital Signs, click to edit/add: Last Vital Signs Temp 97.8 F 01/18/24 13:01 Pulse 87 01/18/24 13:58 Resp 18 01/18/24 13:58 BP 143/62 H 01/18/24 13:01 Pulse Ox 99 01/18/24 13:58 O2 Del Method Room Air 01/18/24 13:58 Course Vital Signs Vital signs: Vital Signs Temperature 97.8 F 01/18/24 13:01 Pulse Rate 88 01/18/24 13:01 Respiratory Rate 20 01/18/24 13:01 Blood Pressure 143/62 H 01/18/24 13:01 Pulse Oximetry 98 01/18/24 13:01 Oxygen Delivery Method Room Air 01/18/24 13:01 Temperature 97.8 F 01/18/24 13:01 Pulse Rate 87 01/18/24 13:58 Respiratory Rate 18 01/18/24 13:58 Blood Pressure 143/62 H 01/18/24 13:01 Pulse Oximetry 99 01/18/24 13:58 Oxygen Delivery Method Room Air 01/18/24 13:58 Medical Decision Making MDM Narrative Medical decision making narrative: Well-appearing 53-year-old female to the emergency department for evaluation of 3 chronic wounds to her pannus. Vital stable, the patient is afebrile. There is no evidence of infection. No evidence of necrotizing soft tissue infection. She has 3 chronic appearing wounds which appear to be healing. Prosper wounds with the patient. She also does not believe they are infected at this time. I do not believe there is indication for any further workup, patient agrees with this plan. I do believe she needs a referral to the wound care center for her chronic wounds with delayed healing. Paper referral form she was given a paper referral form to the wound care center. Wound care was discussed. Wound dressings were discussed. Will place her on a short course of pain medication. Return precautions were discussed. All questions were answered. The patient was discharged home. Discharge Plan Discharge Stand Alone Forms: Portal Instructions Chief Complaint: Skin/Abscess/Foreign Body Clinical Impression: Chronic wound Patient Disposition: Home, Self-Care Time of Disposition Decision: 13:44 Condition: Good Mode of Transportation: Private Vehicle Prescriptions / Home Meds: New hydrocodone-acetaminophen 5-300 mg tablet 1 tab PO Q6H PRN (Reason: pain) 3 Days Qty: 12 0RF hydrocodone-acetaminophen 5-325 mg tablet 1 tab PO Q6H PRN (Reason: pain) 3 Days Qty: 12 0RF No Action albuterol 90 mcg/actuation aerosol 90 mcg inhalation .every 4 hours PRN (Reason: shortness of breath) allopurinol 300 mg tablet 300 mg PO DAILY ascorbic acid (vitamin C) 250 mg tablet,chewable 250 mg PO DAILY biotin 5,000 mcg tablet,disintegrating 10,000 mcg PO DAILY cholecalciferol (vitamin D3) 50 mcg (2,000 unit) tablet,disintegrating 2,000 mcg PO DAILY cyclobenzaprine 10 mg tablet 10 mg PO QAM fenofibrate 160 mg tablet 160 mg PO DAILY ferrous sulfate 325 mg (65 mg iron) tablet 325 mg PO DAILY fexofenadine 180 mg tablet 180 mg PO DAILY fluticasone propionate [Flonase Allergy Relief] 50 mcg/actuation spray,suspension 1 spray intranasal DAILY PRN (Reason: nasal congestion) Rx Instructions: administer into each nostril furosemide 40 mg tablet 40 mg PO DAILY Humulin R U-500 (Conc) Insulin 500 unit/mL solution 150 unit subcut QAM Humulin R U-500 (Conc) Insulin 500 unit/mL solution 150 unit subcut QNOON Humulin R U-500 (Conc) Insulin 500 unit/mL solution 150 unit subcut QPM Fiber Gummies 2 gram tablet,chewable 2 g PO DAILY Lactobacillus acidophilus Capsule 100 mg PO DAILY levothyroxine 175 mcg capsule 150 mcg PO DAILY pregabalin [Lyrica] 75 mg capsule 75 mg PO DAILY metoprolol tartrate 50 mg tablet 50 mg PO DAILY montelukast 10 mg tablet 10 mg PO DAILY ondansetron 4 mg tablet,disintegrating 4 mg PO DAILY PRN (Reason: nausea and vomiting) pantoprazole [Protonix] 40 mg tablet,delayed release (DR/EC) 40 mg PO BID budesonide-formoterol [Symbicort] 80-4.5 mcg/actuation HFA aerosol inhaler 1 puff inhalation BID tiotropium bromide 1.25 mcg/actuation mist 2 inh inhalation DAILY Trulicity 4.5 mg/0.5 mL pen injector 4.5 mg subcut QWEEK Rx Instructions: friday nystatin 100,000 unit/gram cream 1 applic topical DAILY famotidine [Pepcid] 40 mg tablet 40 mg PO DAILY Rx Instructions: at bedtime acetaminophen-codeine 300-30 mg tablet 1 tab PO Q6H PRN (Reason: pain) 5 Days Qty: 20 0RF Print Language: Monegasque Instructions: Chronic Wounds (ED) Additional Instructions: Call the number on the wound care handout and arrange for follow-up with next week. Return to the ED with fever, worsening pain, redness, warmth spreading from wound. Take pain medication as prescribed. Take the smallest dose with the least amount of time possible to control your symptoms. Dispose of medications properly when treatment completed. Do not take with other sedating medications. Call the office of your primary care doctor to arrange for follow-up within the above-stated timeframe. Your ED visit was focused on your acute issue and does not replace primary care. You should review your labs, imaging, and diagnoses from this ED visit with your primary care physician. There may be non-emergent/ incidental findings that need further evaluation. You should review your vital signs including blood pressure with your PCP. If you were prescribed medications you should discuss possible side-effects and drug interactions with your pharmacist. Call 911 or go to the nearest Emergency Department if you develop any new or worsening symptoms. Referrals: RICHELLE FOURNIER [Primary Care Provider] - 1 week Discharge Date/Time: 01/18/24 13:59
== END 2024-01-18 13:59 | disposition home or self-care (01) ==
PROVIDERS: Emergency Provider Student in an Organized Health Care Education/Training Program; PCP Nurse Practitioner Family
DX: L98.499 Non-pressure chronic ulcer of skin of other sites with unspecified severity (principal); E11.9 Type 2 diabetes mellitus without complications; Z79.4 Long term (current) use of insulin; E66.01 Morbid (severe) obesity due to excess calories; Z68.42 Body mass index [BMI] 45.0-49.9, adult
CPT/HCPCS: 99283

== ENCOUNTER 2024-07-29 14:33 | Outpatient (OUT) | payer MEDICARE, MEDICAID, SELFPAY ==
--- NOTE | 2024-07-29 14:44 | XR_ITS ---
[facility] [place] [id number] Patient Name: MARY JANE SANTOS MRN: [id number] date: 1970 Sex: F Assigned Patient Location: [facility] Current Patient Location: [facility] Accession/Order Number: [id number] Exam Date: 07/29/2024 15:32 Report Date: 07/29/2024 15:33 At the request of: RICHELLE FOURNIER Procedure: XR shoulder RT min 2V XR shoulder RT min 2V 07/29/2024 3:01 PM SIGNS AND SYMPTOMS: ^Fall, right shoulder pain PROTOCOL: Frontal, Grashey, scapular Y views of the right shoulder COMPARISON: None FINDINGS: Mild hypertrophic changes are noted in the acromioclavicular joint. There is evidence of soft tissue anchoring in the right humeral head consistent with prior rotator cuff repair. The visualized right hemithorax is grossly intact. XR/XR shoulder RT min 2V IMPRESSION: No fracture or dislocation. Degenerative changes are noted in the right shoulder with findings consistent with previous rotator cuff repair. Impression dictated by: Donald De Souza M.D.07/29/2024 3:33 PM Dictation Location: [place] [address] Electronically authenticated by: [id number] Y Date: 07/29/2024 15:33
--- NOTE | 2024-07-29 14:44 | XR_ITS ---
[place] [address] Patient Name: MAYR JANE SANTOS MRN: [id number] date: 1970 Sex: F Assigned Patient Location: [facility] Current Patient Location: [facility] Accession/Order Number: [id number] Exam Date: 07/29/2024 15:25 Report Date: 07/29/2024 15:30 At the request of: RICHELLE FOURNIER Procedure: XR wrist RT 2V XR wrist RT 2V 07/29/2024 3:01 PM SIGNS AND SYMPTOMS: ^Fall, right wrist pain PROTOCOL: Frontal and lateral radiographs of the right wrist COMPARISON: None FINDINGS: The bones are in anatomic alignment. There is preservation of the radiocarpal joint and carpal rows. Vascular calcifications are present. There is mild soft tissue swelling. XR/XR wrist RT 2V IMPRESSION: No fracture. Nonspecific diffuse soft tissue swelling is noted. Impression dictated by: Donald De Souza M.D.07/29/2024 3:30 PM Dictation Location: [place] [address] Electronically authenticated by: [id number] Y Date: 07/29/2024 15:30
--- NOTE | 2024-07-29 14:44 | XR_ITS ---
[facility] [place] [id number] Patient [facility] MRN: [id number] date: 1970 Sex: F Assigned Patient Location: [facility] Current Patient Location: [facility] Accession/Order Number: [id number] Exam Date: 07/29/2024 15:30 Report Date: 07/29/2024 15:32 At the request of: RICHELLE FOURNIER Procedure: XR ribs RT 2V XR ribs RT 2V 07/29/2024 3:01 PM SIGNS AND SYMPTOMS: ^Fall , right rib pain PROTOCOL: Frontal radiograph of the chest with oblique radiographs of the right ribs COMPARISON: 09/17/2017 FINDINGS: The trachea is midline. The heart and mediastinal structures are within normal limits. Pleural parenchymal opacities noted at the left lung base which is of uncertain etiology. There is no evidence of acute displaced rib fracture. The bony thorax is intact. Degenerative changes are present in the thoracic spine. XR/XR ribs RT 2V IMPRESSION: Pleural parenchymal opacities noted at the left lung base which is of uncertain etiology. No acute displaced rib fracture. Impression dictated by: Donald De Souza M.D.07/29/2024 3:32 PM Dictation Location: [place] [address] Electronically authenticated by: [id number] Y Date: 07/29/2024 15:32
== END 2024-07-29 14:34 | disposition home or self-care (01) ==
LOC: RAD 14:36
PROVIDERS: PCP Nurse Practitioner Family; Visit Provider Nurse Practitioner Family
DX: M24.111 Other articular cartilage disorders, right shoulder (principal); W19.XXXA Unspecified fall, initial encounter
CPT/HCPCS: 71100; 73030; 73100

== ENCOUNTER 2024-08-04 13:04 | Outpatient (RCR) | payer MEDICARE, MEDICAID, SELFPAY | END 2024-09-02 08:43 | disposition home or self-care (01) | LOC: PT 13:04 | PROVIDERS: PCP Nurse Practitioner Family; Visit Provider Nurse Practitioner Family | DX: R42 Dizziness and giddiness (principal) | CPT/HCPCS: 97110; 97112; 97140; 97163 ==

== ENCOUNTER 2024-08-31 14:52 | Outpatient (OUT) | payer MEDICARE, MEDICAID, SELFPAY ==
--- NOTE | 2024-08-31 15:14 | CT_ITS ---
[address] [address] [facility]: [id number] date: 1970 Sex: F Assigned Patient Location: CT Current Patient Location: CT Accession/Order Number: [id number] Exam Date: 08/31/2024 17:39 Report Date: 08/31/2024 17:41 At the request of: RICHELLE FOURNIER Procedure: CT head/brain wo con Unenhanced head CT TECHNIQUE: Contiguous axial imaging of the head. The CT exam was performed using one or more the following dose reduction techniques: Automated exposure control, adjustment of the MA and/or Kv according to patient size, or use of the iterative reconstruction technique. COMPARISON: None HISTORY: Head injury. VENTRICLES: Within normal limits ATROPHY: None BRAIN PARENCHYMA: Adequate corbin-white matter differentiation identified. HEMORRHAGE: None HERNIATION: No mass effect or herniation INFARCTION: No recent vascular distribution infarction is seen. EXTRA-AXIAL FLUID COLLECTIONS None MIDBRAIN: Unremarkable OZZY: Unremarkable MEDULLA: Unremarkable SINUSES: Unremarkable ORBITS: Grossly unremarkable MASTOIDS: Unremarkable BONY STRUCTURES Intact ADDITIONAL FINDINGS: CT/CT head/brain wo con IMPRESSION: No acute findings. Impression dictated by: Mihai Jackson M.D.08/31/2024 5:41 PM Dictation Location: [employer] [facility] Electronically authenticated by: [id number] Y Date: 08/31/2024 17:41
== END 2024-08-31 14:53 | disposition home or self-care (01) ==
LOC: CT 14:53
PROVIDERS: PCP Nurse Practitioner Family; Visit Provider Nurse Practitioner Family
DX: R42 Dizziness and giddiness (principal); Z91.81 History of falling
CPT/HCPCS: 70450

== ENCOUNTER 2024-09-22 11:16 | Outpatient (OUT) | payer MEDICARE, MEDICAID, SELFPAY ==
[2024-09-22 11:54] LABS: Hematocrit 36.1 % (36.0-48.0); Mean Corpuscular HGB Conc 33.2 g/dL (29.9-35.2); Mean Corpuscular Hemoglobin 30.6 pg (26.7-34.0); Mean Corpuscular Volume 92.1 fL (81.0-99.0); Mean Platelet Volume 11.5 fL (9.5-13.5); Platelet Count 205 10^3/uL (150-450); Red Blood Count 3.92 10^6/uL (4.20-5.40); Red Cell Distribution Width 13.9 % (11.0-15.0); White Blood Count 5.9 10^3/uL (4.0-11.0)
[2024-09-22 12:08] LABS: Creatinine Urine Random 138.55 mg/dL (20.00-300.00); Protein Creatinine Ratio Urine 0.28; Total Protein Urine Random 39.1 mg/dL (<=11.9)
[2024-09-22 12:15] LABS: Albumin Level 3.6 g/dL (3.4-5.0); Anion Gap 14.2; BUN Creatinine Ratio 23.5; Calcium 9.4 mg/dL (8.5-10.1); Carbon Dioxide 25.2 mmol/L (21.0-32.0); Chloride 108 mmol/L (98-107); Estimated GFR (African America 49 (>=60 mL/min/1.73m^2); Estimated GFR (Non-African Ame 40 (>=60 mL/min/1.73m^2); Glucose 102 mg/dL (74-106); Phosphorus 3.8 mg/dL (2.6-4.7); Potassium 4.4 mmol/L (3.5-5.1); Sodium 143 mmol/L (136-145)
[2024-09-22 12:16] LABS: Uric Acid 9.7 mg/dL (2.6-6.0)
[2024-09-22 13:50] LABS: Bilirubin Urine NEGATIVE (NEGATIVE); Blood Urine NEGATIVE (NEGATIVE); Clarity Urine CLEAR (CLEAR); Color Urine LT. YELLOW (YELLOW); Glucose Urine UA NEGATIVE (NEGATIVE); Ketones Urine NEGATIVE (NEGATIVE); Leukocyte Esterase Urine TRACE (NEGATIVE); Nitrite Urine NEGATIVE (NEGATIVE); Protein Urine TRACE mg/dL (NEG/TRACE); Specific Gravity Urine 1.025 (1.005-1.025); Urobilinogen Urine 0.2 EU/dL (0.2-1.0)
[2024-09-22 14:14] LABS: Cast Seen? NONE SEEN #/LPF (NONE SEEN); Crystals Seen? None Seen #/HPF (None Seen); Mucus Urine SMALL (NONE SEEN); RBC Urine 0-2 #/HPF (0-2); Squamous Epithelial Cell Urine FEW #/LPF (NONE/RARE); Transitional Epi Cells Urine FEW #/LPF (NONE SEEN); Urine Culture Indicated NO; WBC Urine 0-2 #/HPF (NONE SEEN)
[2024-09-22 14:16] LABS: Bacteria Urine TRACE #/HPF (NONE SEEN)
[2024-09-23 11:10] LABS: PTH, Intact 14 pg/mL (15-65)
== END 2024-09-22 11:17 | disposition home or self-care (01) ==
LOC: LAB 11:19
PROVIDERS: PCP Nurse Practitioner Family; Visit Provider Internal Medicine
DX: E03.9 Hypothyroidism, unspecified (principal); E55.9 Vitamin D deficiency, unspecified; E11.22 Type 2 diabetes mellitus with diabetic chronic kidney disease; I12.9 Hypertensive chronic kidney disease with stage 1 through stage 4 chronic kidney disease, or unspecified chronic kidney disease; N18.30 Chronic kidney disease, stage 3 unspecified; R10.9 Unspecified abdominal pain; E78.00 Pure hypercholesterolemia, unspecified; E11.65 Type 2 diabetes mellitus with hyperglycemia; Z79.4 Long term (current) use of insulin; Z71.3 Dietary counseling and surveillance
CPT/HCPCS: 36415; 80061; 80069; 80076; 81001; 82043; 82306; 82570; 83036; 83525; 83540; 83735; 83970; 84156; 84550; 84681; 85025; 85027

== ENCOUNTER 2024-09-22 11:21 | Outpatient (OUT) | payer MEDICARE, MEDICAID, SELFPAY ==
[2024-09-22 12:09] LABS: Creatinine Urine Random 137.35 mg/dL (20.00-300.00); Microalbum Creatinine Ratio Ur 109.9 mg/g (0.0-29.9); Microalbumin Urine Random 15.1 mg/dL (<=30.0)
[2024-09-22 12:18] LABS: Chol HDL Ratio 4.3; Cholesterol 200 mg/dL (<=200); HDL Cholesterol 46 mg/dL (40-60); Triglycerides 236 mg/dL (<=150); VLDL CHOLESTEROL 47.2 mg/dL
[2024-09-23 04:07] LABS: C-Peptide, Serum 1.7 ng/mL (1.1-4.4)
== END 2024-09-22 11:22 | disposition home or self-care (01) ==
LOC: LAB 11:24
PROVIDERS: PCP Nurse Practitioner Family; Visit Provider Internal Medicine
DX: E55.9 Vitamin D deficiency, unspecified (principal); E11.65 Type 2 diabetes mellitus with hyperglycemia; Z79.4 Long term (current) use of insulin; Z71.3 Dietary counseling and surveillance
CPT/HCPCS: 36415; 80061; 82043; 82570; 84681

== ENCOUNTER 2024-09-22 11:56 | Outpatient (OUT) | payer MEDICARE, MEDICAID, SELFPAY ==
--- NOTE | 2024-09-22 11:55 | CT_ITS ---
[address] [address] Patient Name: MARY JANE Foy [facility] MRN: [id number] date: 1970 Sex: F Assigned Patient Location: LAB Current Patient Location: LAB Accession/Order Number: [id number] Exam Date: 09/22/2024 13:44 Report Date: 09/22/2024 13:50 At the request of: RICHELLE FOURNIER Procedure: CT abdomen pelvis w con CT Abdomen and Pelvis withcontrast TECHNIQUE: Axial imaging with 2-D reconstruction.100 cc of Omnipaque 300. The CT exam was performed using one or more the following dose reduction techniques: Automated exposure control, adjustment of the MA and/or Kv according to patient size, or use of the iterative reconstruction technique. COMPARISON: None History: Chronic abdominal wound. LIMITATIONS: None LOWER THORAX Unremarkable LIVER: Hepatic steatosis. Hepatomegaly. GALLBLADDER: No gallbladder abnormality identified. BILE DUCTS: No dilatation SPLEEN: Splenomegaly PANCREAS: Unremarkable ADRENAL GLANDS: Unremarkable KIDNEYS:Unremarkable AORTA: No abdominal aortic aneurysm identified. RETROPERITONEUM: No significant retroperitoneal abnormalities identified. MESENTERY:Unremarkable SMALL BOWEL: The small bowel loops are nondistended. APPENDIX: The appendix is normal. COLON: Unremarkable URINARY BLADDER: Urinary bladder is unremarkable. REPRODUCTIVE SYSTEM: Reproductive structures are unremarkable. PNEUMOPERITONEUM: None PERITONEAL FLUID:None BONY STRUCTURES: Degenerative change. ABDOMINAL WALL: Small fat-containing umbilical hernia. Anterior abdominal wall relaxation. 2 cm left lower quadrant subcutaneous nodule likely inflammatory. No soft tissue fluid collections. No subcutaneous air. CT/CT abdomen pelvis w con IMPRESSION: No subcutaneous air. No fluid collection. No acute abdominal or pelvic findings. Fatty hepatomegaly. Splenomegaly. Small fat-containing umbilical hernia. Impression dictated by: Mihai Jackson M.D.09/22/2024 1:50 PM Dictation Location: [facility] Electronically authenticated by: [id number] Y Date: 09/22/2024 13:50
[2024-09-22 12:50] LABS: Red Blood Count 3.92 10^6/uL (4.20-5.40); White Blood Count 5.9 10^3/uL (4.0-11.0)
[2024-09-22 12:51] LABS: Eosinophils Percent Auto 9.5 % (0.9-7.0); Hematocrit 36.1 % (36.0-48.0); Lymphocytes Percent Auto 30.8 % (20.5-60.0); Mean Corpuscular HGB Conc 33.2 g/dL (29.9-35.2); Mean Corpuscular Hemoglobin 30.6 pg (26.7-34.0); Mean Corpuscular Volume 92.1 fL (81.0-99.0); Mean Platelet Volume 11.5 fL (9.5-13.5); Monocytes Percent Auto 8.5 % (1.7-12.0); Neutrophils Percent Auto 49.7 % (43.0-75.0); Platelet Count 205 10^3/uL (150-450); Red Cell Distribution Width 13.9 % (11.0-15.0)
[2024-09-22 12:52] LABS: Basophils Absolute Auto 0.1 10^3/uL (0.0-0.1); Eosinophils Absolute Auto 0.6 10^3/uL (0.0-0.7); Immature Granulocytes Abs Auto 0.03 10^3/uL (0.00-0.03); Immature Granulocytes Pct Auto 0.5 % (0.0-0.5); Lymphocytes Absolute Auto 1.9 10^3/uL (1.2-3.8); Monocytes Absolute Auto 0.5 10^3/uL (0.3-0.8)
[2024-09-22 12:55] LABS: Alanine Aminotransferase 35 U/L (14-59); Albumin Level 3.6 g/dL (3.4-5.0); Alkaline Phosphatase 72 U/L (46-116); Aspartate Amino Transferase 29 U/L (15-37); Bilirubin Direct 0.1 mg/dL (0.0-0.2); Bilirubin Total 0.4 mg/dL (0.2-1.0); Globulin 3.7 g/dL; Total Protein 7.3 g/dL (6.4-8.2)
[2024-09-22 13:07] LABS: Estimated Average Glucose 223 mg/dL; Glycohemoglobin A1C 9.4 % (4.5-6.2)
[2024-09-23 18:08] LABS: Insulin 98.3 uIU/mL (2.6-24.9)
== END 2024-09-22 11:57 | disposition home or self-care (01) ==
LOC: LAB 11:56
PROVIDERS: PCP Nurse Practitioner Family; Visit Provider Nurse Practitioner Family
DX: R10.9 Unspecified abdominal pain (principal); S31.109A Unspecified open wound of abdominal wall, unspecified quadrant without penetration into peritoneal cavity, initial encounter; E78.00 Pure hypercholesterolemia, unspecified; E11.9 Type 2 diabetes mellitus without complications; E03.9 Hypothyroidism, unspecified; E55.9 Vitamin D deficiency, unspecified; R16.1 Splenomegaly, not elsewhere classified; K42.9 Umbilical hernia without obstruction or gangrene
CPT/HCPCS: 36415; 74177; 80076; 83036; 83525; 83540; 85025; Q9967

== ENCOUNTER 2024-10-06 12:29 | Emergency (ER) | payer MEDICARE, MEDICAID, SELFPAY ==
[2024-10-06] VITALS (13 sets, daily range): BP systolic 127–156; BP diastolic 53–75; PULSE 95–100; TEMP 36.9; O2SAT 92–96; BMI 45.5
--- NOTE | 2024-10-06 12:51 | ECG_ITS ---
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 Measurements Intervals Noble Rate: 98 P: 40 DE: 140 QRS: 104 QRSD: 80 T: 35 QT: 340 QTc: 395 Interpretive Statements 1100 Sinus rhythm 3113 Cannot rule out anterior myocardial infarction, probably old 7100 Abnormal right axis deviation 9150 abnormal ECG Compared to ECG 09/07/2021 12:09:35 Right-axis deviation now present Electronically Signed On 10-06-2024 18:14:34 EDT by NANDA KAUR M.D.
--- NOTE | 2024-10-06 12:54 | ED.GENADUL1 ---
HPI HPI - General Adult General Chief complaint: Shortness of Breath/Dyspnea Stated complaint: SHORTNESS OF BREATH Time Seen by Provider: 10/06/24 12:35 Source: patient Mode of arrival: ambulance History of Present Illness HPI narrative: 54-year-old female presents to the emergency department for shortness of breath. She has had this for 2 or 3 days and she has been coughing up brown phlegm. She states her highest temperature at home was 99 degrees and she is worried that she has pneumonia. She has nebulizer at home but did not use it. No hemoptysis or vomiting. Related Data Home Medications ?Medication ?Instructions ?Recorded ?Confirmed Lactobacillus acidophilus 100 mg PO DAILY 08/26/23 10/06/24 albuterol 90 mcg/actuation aerosol 90 mcg inhalation .every 4 hours 08/26/23 10/06/24 inhaler PRN shortness of breath allopurinol 300 mg tablet 300 mg PO DAILY 08/26/23 10/06/24 ascorbic acid (vitamin C) 250 mg 250 mg PO DAILY 08/26/23 10/06/24 chewable tablet biotin 5,000 mcg disintegrating 10,000 mcg PO DAILY 08/26/23 10/06/24 tablet budesonide-formoterol HFA 80 1 puff inhalation BID 08/26/23 10/06/24 mcg-4.5 mcg/actuation aerosol inhaler (Symbicort) cyclobenzaprine 10 mg tablet 10 mg PO QPM 08/26/23 10/06/24 dulaglutide 4.5 mg/0.5 mL 4.5 mg subcut QWEEK 08/26/23 10/06/24 subcutaneous pen injector (Trulicity) fenofibrate 160 mg tablet 160 mg PO DAILY 08/26/23 10/06/24 ferrous sulfate 325 mg (65 mg 325 mg PO DAILY 08/26/23 10/06/24 iron) tablet fexofenadine 180 mg tablet 180 mg PO DAILY 08/26/23 10/06/24 fluticasone propionate 50 1 spray intranasal DAILY PRN nasal 08/26/23 10/06/24 mcg/actuation nasal congestion spray,suspension (Flonase Allergy Relief) furosemide 40 mg tablet 40 mg PO DAILY 08/26/23 10/06/24 insulin regular hum U-500 conc 500 150 unit subcut QAM 08/26/23 10/06/24 unit/mL subcutaneous soln (Humulin R U-500 (Concentrated) Insulin) insulin regular hum U-500 conc 500 150 unit subcut QNOON 08/26/23 09/03/23 unit/mL subcutaneous soln (Humulin R U-500 (Concentrated) Insulin) insulin regular hum U-500 conc 500 150 unit subcut QPM 08/26/23 08/26/23 unit/mL subcutaneous soln (Humulin R U-500 (Concentrated) Insulin) inulin 2 gram chewable tablet 2 g PO DAILY 08/26/23 09/03/23 (Fiber Gummies) levothyroxine 175 mcg capsule 150 mcg PO DAILY 08/26/23 10/06/24 metoprolol tartrate 50 mg tablet 100 mg PO Q12H 08/26/23 10/06/24 montelukast 10 mg tablet 10 mg PO DAILY 08/26/23 10/06/24 nystatin 100,000 unit/gram topical 1 applic topical DAILY PRN rash 08/26/23 10/06/24 cream ondansetron 4 mg disintegrating 4 mg PO DAILY PRN nausea and 08/26/23 10/06/24 tablet vomiting pantoprazole 40 mg tablet,delayed 40 mg PO BID 08/26/23 10/06/24 release (Protonix) tiotropium bromide 1.25 2 inh inhalation DAILY 08/26/23 10/06/24 mcg/actuation mist for inhalation famotidine 40 mg tablet (Pepcid) 40 mg PO DAILY 08/27/23 10/06/24 clopidogrel 75 mg tablet 75 mg PO DAILY 10/06/24 10/06/24 lisinopril 10 mg tablet 10 mg PO DAILY 10/06/24 10/06/24 meclizine 25 mg tablet 25 mg PO BID PRN dizziness 10/06/24 10/06/24 pregabalin 100 mg capsule (Lyrica) 100 mg PO TID 10/06/24 10/06/24 rosuvastatin 20 mg tablet 20 mg PO DAILY 10/06/24 10/06/24 Previous Rx's ?Medication ?Instructions ?Recorded acetaminophen 300 mg-codeine 30 mg 1 tab PO Q6H PRN pain 5 days #20 12/26/23 tablet tabs Allergies Allergy/AdvReac Type Severity Reaction Status Date / Time azithromycin Allergy Severe Hives Verified 10/06/24 12:35 cephalexin Allergy Severe Hives Verified 10/06/24 12:35 ciprofloxacin Allergy Severe Hives Verified 10/06/24 12:35 Penicillins Allergy Severe Anaphylaxis Verified 10/06/24 12:35 sulfamethoxazole Allergy Severe Anaphylaxis Verified 10/06/24 12:35 sulfanilamide Allergy Severe Anaphylaxis Verified 10/06/24 12:35 trimethoprim Allergy Severe Anaphylaxis Verified 10/06/24 12:35 acetaminophen (From Percocet) AdvReac Severe Vomiting Verified 10/06/24 12:35 aspirin AdvReac Severe Vomiting Verified 10/06/24 12:35 cefprozil (From Cefzil) AdvReac Severe Hives Verified 10/06/24 12:35 moxifloxacin (From Avelox) AdvReac Severe Hives Verified 10/06/24 12:35 oxycodone (From Percocet) AdvReac Severe Vomiting Verified 10/06/24 12:35 Opioid HPI Opioid Management Most Recent Opioid Data: Last Pain Scale 10 01/18/24, 13:10 Review of Systems ROS Narrative A ten point review of systems is negative except as noted above. [facility] Medical History (Updated 10/06/24 @ 15:08 by Brian Cota MD) Fall ?W19.XXXA - Unspecified fall, initial encounter (ICD-10) Concussion ?S06.0XAA - Concussion with loss of consciousness status unknown, initial encounter (ICD-10) Obesity ?E66.9 - Obesity, unspecified (ICD-10) Delayed recovery from anesthesia Postoperative nausea and vomiting ?R11.2 - Nausea with vomiting, unspecified (ICD-10) ?Z98.890 - Other specified postprocedural states (ICD-10) Dysphagia ?R13.10 - Dysphagia, unspecified (ICD-10) Ovarian cancer ?C56.9 - Malignant neoplasm of unspecified ovary (ICD-10) Osteoarthritis ?M19.90 - Unspecified osteoarthritis, unspecified site (ICD-10) Nerve damage of right foot ?G57.91 - Unspecified mononeuropathy of right lower limb (ICD-10) Nerve damage of left foot ?G57.92 - Unspecified mononeuropathy of left lower limb (ICD-10) Hypothyroidism ?E03.9 - Hypothyroidism, unspecified (ICD-10) Hypertension ?I10 - Essential (primary) hypertension (ICD-10) High cholesterol ?E78.00 - Pure hypercholesterolemia, unspecified (ICD-10) Herniation of right side of L4-L5 intervertebral disc ?M51.26 - Other intervertebral disc displacement, lumbar region (ICD-10) GI problem ?R19.8 - Other specified symptoms and signs involving the digestive system and abdomen (ICD-10) Diabetes 1.5, managed as type 2 ?E13.9 - Other specified diabetes mellitus without complications (ICD-10) Asthma ?J45.909 - Unspecified asthma, uncomplicated (ICD-10) Anemia ?D64.9 - Anemia, unspecified (ICD-10) Surgical History H/O: hysterectomy ?Z90.710 - Acquired absence of both cervix and uterus (ICD-10) Hx of tonsillectomy ?Z90.89 - Acquired absence of other organs (ICD-10) Total knee replacement status ?Z96.659 - Presence of unspecified artificial knee joint (ICD-10) S/P surgery on nasal septum ?Z98.890 - Other specified postprocedural states (ICD-10) History of arthroscopic knee surgery ?Z98.890 - Other specified postprocedural states (ICD-10) History of discectomy ?Z98.890 - Other specified postprocedural states (ICD-10) History of cholecystectomy ?Z90.49 - Acquired absence of other specified parts of digestive tract (ICD-10) History of appendectomy ?Z90.49 - Acquired absence of other specified parts of digestive tract (ICD-10) Family History (Updated 08/27/23 @ 13:[address] RN) Mother Arthritis Asthma Family history of hypertension Hyperlipidemia Family history of stroke Father Arthritis Family history of diabetes mellitus Family history of hypertension Alzheimer's disease Other Family history of cancer Social History (Updated 08/27/23 @ 13:[address] RN) Within the past year, how often did you have a drink containing alcohol: never Score interpretation: A score less than 3 is consistent with normal alcohol consumption. Smoking status: Never smoker Second hand tobacco smoke exposure: No Non-prescribed substance use: denies use Previous occupational history: disability Highest level of school completed/degree received: some college, no degree Little interest or pleasure in doing things: not at all Feeling down, depressed, or hopeless: not at all Exam Narrative Exam Narrative: Nurses note and vital signs reviewed and patient is not hypoxic. General: The patient appears well and in no apparent distress. Patient is resting comfortably on cart. Skin: Warm, dry, no pallor noted. There is no rash noted. Head: Normocephalic, atraumatic Eye: Normal conjunctiva, no drainage Ears, Nose, Mouth, and Throat: oral mucosa is moist. Nares patent. Cardiovascular: Regular Rate and Rhythm Respiratory: Lungs have good air movement. Back: non-tender GI: Normal bowel sounds, no tenderness to palpation, no masses appreciated. No rebound, guarding, or rigidity noted. Musculoskeletal: The patient has no evidence of calf tenderness, no pitting edema, symmetrical pulses noted bilaterally Neurological: A&O, normal speech Psychiatric: Cooperative Constitutional Vital Signs, click to edit/add: Last Vital Signs Temp 98.4 F 10/06/24 12:35 Pulse 98 H 10/06/24 14:00 Resp 33 H 10/06/24 14:00 BP 150/65 H 10/06/24 13:00 Pulse Ox 94 L 10/06/24 14:00 O2 Del Method Nasal Cannula 10/06/24 13:26 O2 Flow Rate 3 10/06/24 13:26 Course Vital Signs Vital signs: Vital Signs Pulse Oximetry 96 10/06/24 12:34 Temperature 98.4 F 10/06/24 12:35 Pulse Rate 98 H 10/06/24 14:00 Respiratory Rate 33 H 10/06/24 14:00 Blood Pressure 150/65 H 10/06/24 13:00 Pulse Oximetry 94 L 10/06/24 14:00 Oxygen Delivery Method Nasal Cannula 10/06/24 13:26 Oxygen Delivery Flow Rate 3 10/06/24 13:26 Medical Decision Making MDM Narrative Medical decision making narrative: Her troponin came back elevated with repeat pending. She was given aspirin and IV heparin. Right lower lobe pneumonia is identified and she has numerous allergies including macrolides, cephalosporins, fluoroquinolones, and penicillins. She did not have doxycycline listed as an allergy and when I ordered the doxycycline she told the nurse that she broke out in a rash from it. The patient has been given IV Benadryl and she will be watched closely. The patient will be transferred to [facility] and I spoke to the nurse practitioner on duty there who accepts the patient. The patient is stable and agreeable for transfer. Differential Diagnosis Differential Diagnosis: Pneumonia, COVID, influenza, heart failure, [place] Lab Data Lab results reviewed: Yes I reviewed the patient's lab results Labs: Lab Results 10/06/24 10/06/24 Range/Units 13:20 13:29 WBC 7.7 (4.0-11.0) 10^3/uL RBC 2.89 L (4.20-5.40) 10^6/uL Hgb 9.0 L (12.0-16.0) g/dL Hct 27.9 L (36.0-48.0) % MCV 96.5 (81.0-99.0) fL MCH 31.1 (26.7-34.0) pg MCHC 32.3 (29.9-35.2) g/dL RDW 14.9 (11.0-15.0) % Plt Count 136 L (150-450) 10^3/uL MPV 12.6 (9.5-13.5) fL Seg Neuts % (Manual) 95.0 H (43.0-75.0) Lymphocytes % (Manual) 4.0 L (20.5-60.0) % Monocytes % (Manual) 1.0 L (1.7-12.0) % Eosinophils % (Manual) 0.0 L (0.9-7.0) % Basophils % (Manual) 0.0 L (0.2-2.0) % Neutrophils # (Manual) 7.31 H (1.4-6.5) 10^3/uL Lymphocytes # (Manual) 0.30 L (1.20-3.80) 10^3/uL Monocytes # (Manual) 0.07 L (0.30-0.80) 10^3/uL Eosinophils # (Manual) 0.00 (0.00-0.70) 10^3/uL Basophils # (Manual) 0.00 (0.00-0.10) 10^3/uL Anisocytosis 2+ PT 11.7 H (9.0-11.6) sec INR 1.12 APTT 34.7 (22.3-36.2) sec Sodium 135 L (136-145) mmol/L Potassium 4.7 (3.5-5.1) mmol/L Chloride 103 (98-107) mmol/L Carbon Dioxide 18.3 L (21.0-32.0) mmol/L Anion Gap 18.4 BUN 33.0 H (7.0-18.0) mg/dL Creatinine 1.84 H (0.55-1.02) mg/dL Est GFR ( Amer) 34 L (>=60 mL/min/1.73m^2) Est GFR (Non-Af Amer) 28 L (>=60 mL/min/1.73m^2) BUN/Creatinine Ratio 17.9 Glucose 498 H (74-106) mg/dL Calcium 9.2 (8.5-10.1) mg/dL Troponin I High Sens 254.3 H* (4.0-51.3) pg/mL NT-Pro-B Natriuret Pep 5250.0 H* (<=900.0) pg/mL Influenza Type A Ag Negative Influenza Type B Ag Negative SARS-CoV-2 Ag (CV2AG) Negative (NEGATIVE) Imaging Data Chest x-ray: Radiologist's impression: Right lung base infection ECG Data Attestation: I personally reviewed and interpreted this ECG as follows: (EKG on my interpretation shows normal sinus rhythm with rate of 98 and no acute) Critical Care Time Critical Care Time Critical Care Time: Yes Total Critical Care Time: 35 Attestation: Due to the high probability of sudden and clinically significant deterioration in the patient's condition he/she required the highest level of my preparedness to intervene urgently I provided critical care time including documentation time, medication orders and management, reevaluation, vital sign assessment, ordering and reviewing of lab tests, ordering and reviewing of x-ray studies, and admission orders. Aggregate critical care time is 35 minutes including only time during which I was engaged in work directly related to his/her care and did not include time spent treating other patients simultaneously. Discharge Plan Discharge Chief Complaint: Shortness of Breath/Dyspnea Clinical Impression: Acute non-ST elevation myocardial infarction (NSTEMI), Right lower lobe pneumonia Patient Disposition: [facility] Time of Disposition Decision: 15:07 Discharge Location: [facility] Condition: Fair Mode of Transportation: EMS
[2024-10-06] MEDS: METHYLPREDNISOLONE SOD SUCC PF 125 MG/2 ML VIAL IVP (13:15)
[2024-10-06] MEDS: ALBUTEROL SULFATE 2.5 MG/3 ML VIAL NEB IH (13:22)
[2024-10-06 13:38] LABS: Hematocrit 27.9 % (36.0-48.0); Mean Corpuscular HGB Conc 32.3 g/dL (29.9-35.2); Mean Corpuscular Hemoglobin 31.1 pg (26.7-34.0); Mean Corpuscular Volume 96.5 fL (81.0-99.0); Mean Platelet Volume 12.6 fL (9.5-13.5); Platelet Count 136 10^3/uL (150-450); Red Blood Count 2.89 10^6/uL (4.20-5.40); Red Cell Distribution Width 14.9 % (11.0-15.0); White Blood Count 7.7 10^3/uL (4.0-11.0)
[2024-10-06 13:49] LABS: Influenza Virus A Antigen Negative; Influenza Virus B Antigen Negative; Internal Control Within Normal Limits; SARS-CoV-2 Ag NEGATIVE (NEGATIVE)
[2024-10-06 13:53] LABS: Anisocytosis 2+; Monocytes Absolute Manual 0.07 10^3/uL (0.30-0.80); Segmented Neut Absolute Manual 7.31 10^3/uL (1.4-6.5)
[2024-10-06 13:57] LABS: Anion Gap 18.4; BUN Creatinine Ratio 17.9; Calcium 9.2 mg/dL (8.5-10.1); Carbon Dioxide 18.3 mmol/L (21.0-32.0); Chloride 103 mmol/L (98-107); Estimated GFR (African America 34 (>=60 mL/min/1.73m^2); Estimated GFR (Non-African Ame 28 (>=60 mL/min/1.73m^2); Glucose 498 mg/dL (74-106); Potassium 4.7 mmol/L (3.5-5.1); Sodium 135 mmol/L (136-145)
[2024-10-06 13:59] LABS: Troponin I High Sensitivity 254.3 pg/mL (4.0-51.3)
[2024-10-06 14:58] LABS: INR 1.12; Partial Thromboplastin Time 34.7 sec (22.3-36.2); Prothrombin Time 11.7 sec (9.0-11.6)
[2024-10-06] MEDS: DOXYCYCLINE HYCLATE 100 MG in 0.9 % SODIUM CHLORIDE 100 ML IV (15:03)
[2024-10-06] MEDS: HEPARIN SODIUM (PORCINE) 5,000 UNIT/ML VIAL 4000 UNIT IV (15:04)
[2024-10-06] MEDS: HEPARIN SODIUM,PORCINE/D5W 25,000 UNIT/500 ML IV.SOLN 18 UNIT IV (15:08)
[2024-10-06 15:25] LABS: Troponin I High Sensitivity 239.6 pg/mL (4.0-51.3)
[2024-10-06] MEDS: DIPHENHYDRAMINE HCL 50 MG/ML VIAL 25 MG IVP (15:26)
--- NOTE | 2024-10-06 15:31 | PC.NURSE ---
Patient refuses aspirin, states it makes me throw up . Dr. Cota aware of refusal.
--- NOTE | 2024-10-06 17:48 | PC.NURSE ---
Patient leaves facility with Heparin drip running.
== END 2024-10-06 17:50 | disposition short-term general hospital (02) ==
PROVIDERS: Emergency Provider Emergency Medicine; PCP Nurse Practitioner Family
DX: I21.4 Non-ST elevation (NSTEMI) myocardial infarction (principal); J18.9 Pneumonia, unspecified organism; R06.02 Shortness of breath; Z90.710 Acquired absence of both cervix and uterus; Z96.659 Presence of unspecified artificial knee joint; Z90.49 Acquired absence of other specified parts of digestive tract
CPT/HCPCS: 36415; 71045; 80048; 83880; 84484; 85007; 85027; 85610; 85730; 87040; 87804; 87811; 93005; 94640; 96365; 96366; 96368; 96375; 96376; 99285; J1200; J1644; J2919

== ENCOUNTER 2024-10-21 14:50 | Inpatient (IN) | payer MEDICARE, MEDICAID, SELFPAY ==
--- OUTSIDE RECORDS SUMMARY | 2023-08-18 06:30 | XMS_ITS ---
Author Organization [facility] Address [address] [place] [address] Care Team Providers Care Vice President [employer] Name Role Phone Ann Rocha Primary Care Provider Vladimir Hurt Unavailable [phone] REASON FOR VISIT RC LEFT KNEE ARTHRITIS Medications Medication SIG (Take, Route, Frequency, Duration) Notes Start Date End Date Status Acidophilus - 1 cap(s) orally once a day Active Cinnamon 500 mg 2 cap(s) orally 2 ti mes a day Active biotin 05240 mcg 1 cap(s) orally once a day [...] Active Encounters Encounter Location Date Provider Diagnosis [facility] Office [address] [place] [address] [address] 08/18/2023 Vladimir Riggins Primary osteoarthrit is of left knee M17.12 Assessments Encounter Date Diagnosis (ICD Code) Assessment Notes Treatment Notes Treatment Clinical Notes Section Notes 08/18/2023 Primary osteoarthritis of left knee (ICD-10 - M17.12) Plan Of Treatment Pending Test Test Name Order Date RSS: KNEE LEFT LUCITA AP,LUCITA PA ,LEFT LAT,B [place] - [id number] 08/18/2023 Progress Notes * MARY JANE SCHAEFFER DDOB:[birth year] (54 yo F)Acc No.[id number]:08/18/2023 Patient: Carmelita MARY JANE VEGAS D Provider: Isabell Riggins MD :1970 A ge:53 Y S ex:Female Date:08/18/2023 Address:[address] [place] [address] [address] Pcp:Ann Rocha Subjective: * Chief Complaints: [...] orally once a day , Taking biotin 16399 mcg capsule 1 cap(s) orally once a [...] 7 3564 X-ray Knee, complete 4 views, 36820 X-ray Knee, 3 view Forms: * Images: * Electronic signature of Vladimir Riggins MD on 10/21/2024 at 02:55 PM EDT Sign off status: Pending * Provider: Isabell Riggins MD Date: 0 08/18/2023 Generated for Mark davis/Otilia/Adrianitting on: 0 10/21/2024 02:55 PM EDT
--- OUTSIDE RECORDS SUMMARY | 2024-10-06 09:20 | XMS_ITS ---
Author Organization [facility] in [place] Address [address] [place] [address] Care Team Providers Care Retail Brand Ambassador Name Role Phone Ann Rocha Primary Care Provider Cayden Viveros [phone] Allergies Allergen (clinical drug ingredient) Drug/Non Drug Allergy documented on EMR Reaction Allergy Type Onset Date Status Soy (uncoded) anaphylaxis Allergy Acti ve aspirin Aspirin vomiting Drug Allergy Active moxifloxacin Avelox hives Drug Allergy Acti ve sulfamethoxazole / trimethoprim Bactrim anaphylaxis Drug Allergy Active Cephadyn hives Drug Allergy Active ciprofloxacin Cipro hives Drug Allergy Act ellis acetaminophen / oxycodone Percocet vomiting Drug Allergy Active Adhesive Unknown Allergy Active azithromycin Azithromycin hives Drug Allergy 05/02/2022 Active Medicinal cephalosporin and acting as antibacterial agent (FN) Cephalosporins hives Drug Allergy Active Eggs or Egg-derived Products Unknown Drug Allergy Active Pollen Pollen Unknown Allergy Active Substance with 8-arjcxcm-2-methylglut aryl-coenzyme A reductase inhibitor mechanism of action (substance) Statins Unknown Drug Allergy Active Substance with sulfonamide structure and antibacterial mechanism of action (substance) Sulfa Antibiotics Unknown Drug Allergy Active doxycycline Doxycycline hives Drug Allergy Act ellis Penicillin anaphylaxis Drug Allergy Acti ve REASON FOR VISIT F/U-ASTHMA Medications Medication SIG (Take, Route, Frequency, Duration) Notes Start Date End Date Status Lyrica 100 MG 1 capsule Orally Three times a day Active Meclizine HCl 25 MG 1 tablet as needed Orally every 12 hrs for 15 days 07/29/2024 Active Levothyroxine Sodium 175 MCG 1 tablet in the morning on an empty stomach Orally Once a day for 90 days Active Lisinopril 10 MG 1 tablet Orally Once a day Active Metoprolol Tartrate 100 MG 1 tablet with food Orally Twice a day for 90 days Active Iron 325 (65 Fe) MG 1 tablet Orally daily Active Krill Oil Active Furosemide 20 MG 1 tablet Orally BID Active HumuLIN R U-500 (CONCENTRATED) 500 UNIT/ML as directed Subcutaneous per insulin pump - Endocrin Active Fluticasone Propionate 50 MCG/ACT 2 sprays in each nostril Nasally QD Active Fiber Select Gummies - 4 tablets Orally every evening Active Fenofibrate 160 MG TAKE 1 TABLET BY MOUTH DAILY AT BEDTIME for 90 Active Fexofenadine HCl 180 MG 1 tablet Orally every evening Active Cyclobenzaprine HCl 10 MG 1 tablet Orally Once a day for 90 days Active Dupixent 300 MG/2ML as directed Subcutaneous Every 2 weeks Active Allopurinol 300 MG 1 tablet Orally Daily for 90 days Active Vitamin C Active Zinc 50 MG 1 tablet Orally Once a day Active Calcium Active Cinnamon 500 MG 1 capsule Orally BID Active Symbicort 160-4.5 MCG/ACT 2 puffs Inhalation BID for 90 days Rinse after use Active Trulicity 1.5 MG/0.5ML as directed Subcutaneous weekly Active Ventolin HFA 108 (90 Base) MCG/ACT 2 puffs as needed for SOB Inhalation Q4H for 90 days Active traMADol HCl 50 MG 1 tablet as needed Orally BID prn for 7 days 12/23/2023 Active Triamcinolone Acetonide 0.1 % 1 application Externally Twice a day Active Repatha SureClick 140 MG/ML 1 injection Subcutaneous every 2 weeks 09/29/2024 Active Spiriva Respimat 1.25 MCG/ACT 2 puffs Inhalation QD for 90 days Active Pepcid 20 MG 1 tablet Orally Daily Active Plavix 75 MG 1 tablet Orally Once a day Active Pantoprazole Sodium 40 MG 1 tablet Orally BID for 90 days Active Ondansetron HCl 4 MG 1 tablet Orally every 8 hours Active Montelukast Sodium 10 MG 1 tablet Orally QD for 30 days Active Nystatin 956704 UNIT/GM 1 application Externally daily Active Social History Tobacco Use: Social History Observation Description Date Details (start date - stop date) Never Smoker NA - NA Tobacco Control (Standard) Question Answer Notes Tobacco use: Nonsmoker Encounters Encounter Location Date Provider Diagnosis [facility] [place] [address] [place] [address] 10/06/2024 Cayden Viveros Plan Of Treatment No Information Procedure Notes * Category Sub-Category Detail Notes PFT Data: PFT 09/03/2017-FEV 1/FVC: 87%-FEV1: 69%-FVC: 63%-Bronchodilator response: None-RV: 92%-T%-DLCO: 70%-FENO 16PFT 04/06/2012-FEV1/FVC: 82% -FEV1: 79%-FVC: 78%-Bronchodilator response: None-RV: 103%-T%-DLCO: 94% Progress Notes * Amadou SUAREZ DDOB:[birth year] (54 yo F)Acc No.[id number]:10/06/2024 UNLOCKED PROGRESS NOTE Follow Up Patient: Carmelita Amadou VEGAS D Provider: Josesito Viveros DO :1970 A ge:54 Y S ex:Female Date:10/06/2024 Address:[facility] [address] [place], [address] Pcp:Ann Rocha Subjective: * Chief Complaints: * 1 . F/U-ASTHMA. * Medical History: O bstructive sleep apnea, Peripheral eosinophilia, Elevated IgE level, Chronic nonseasonal allergic rhinitis due to other allergen, Diabetes mellitus type 2, controlled, Gastroesophageal reflux disease, Hypercholesterolemia, Hypothyroidism, Obstructive sleep apnea, Intramural leiomyoma of uterus, Intrinsic atopic dermatitis, Morbid obesity, emt intermediate (current) use of 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s, Osteoarthritis of right hip, Ovarian cancer, Wound check, abscess, CAD (coronary artery disease), Fibroid uterus, Sciatica, right, Chronic allergic conjunctivitis, Vitamin D deficiency, Renal osteodystrophy, Benign hypertensive kidney disease with chronic kidney disease stage I through stage IV, or unspecified, Chronic kidney disease (CKD), stage III (moderate), Body mass index (BMI) of 70 or greater in adult, Carpal tunnel syndrome, Chronic diarrhea, Gout, Neuropathy, Degenerative disc disease, lumbar, Dependent edema, Chronic sinusitis, unspecified, Osteoarthritis, Hypertension, GERD (gastroesophageal reflux disease). * Surgical History: A ppendectomy 03/2011, Right knee arthroscopy 05/1988, Right knee arthroscopy 04/2000, Right & left heart catheterization 03/2008, Cholecystectomy 12/2000, Herniated disk repair 08/2011, Hysterectomy 12/05/2020, Nasal bone spur repair 08/2011, Right rotator cuff 12/2001, Right shoulder repair 09/2008, Tonsillectomy 01/1972, Right TKA 07/2012, Toe Surgery-Right 10/2022, EGD 09/03/2023. * Hospitalization/Major Diagno stic Procedure: D enies Past Hospitalization. * Family History: F ather: , Dementia, renal failure, emphysema, diagnosed with Diabetes mellitus without mention of complication, type II or unspecified type, not stated as uncontrolled, Unspecified essential hypertension. M other: , Stroke, lung disease , diagnosed with Diabetes mellitus without mention of complication, type II or unspecified type, not stated as uncontrolled, Unspecified essential hypertension. 1 brother(s) . . * Social History: T obacco Use: T obacco Control (Standard) T obacco use: N onsmoker Electronic Cigarette use C urrent user N o M iscellaneous: A mbulatory Assistance E quipment: C ane Occupation O ccupation: D isabled. Worked in [employer], [employer], horses Pets: dog, cat. D rugs/Alcohol: D rugs H ave you used drugs other than those for medical reasons in the past 12 months? N o D oes the Patient have a History of Drug Abuse in the Past? N o Caffeine I ntake: n one Do you drink alcohol?: No. Do you smoke marijuana?: Denies. * Medications: T aking Allopurinol 300 MG Tablet 1 tablet Orally Daily , Taking Calcium , Taking Cinnamon 500 MG Capsule 1 capsule Orally BID , Taking Cyclobenzaprine HCl 10 MG Tablet 1 tablet Orally Once a day , Taking Dupixent(Dupilumab) 300 MG/2ML Solution Pen-injector as directed Subcutaneous Every 2 weeks , Taking Fenofibrate 160 MG Tablet TAKE 1 TABLET BY MOUTH DAILY AT BEDTIME , Taking Fexofenadine HCl 180 MG Tablet 1 tablet Orally every evening , Taking Fiber Select Gummies(Fiber) - Tablet Chewable 4 tablets Orally every evening , Taking Fluticasone Propionate 50 MCG/ACT Suspension 2 sprays in each nostril Nasally QD , Taking Furosemide 20 MG Tablet 1 tablet Orally BID , Taking HumuLIN R U-500 (CONCENTRATED)(Insulin Regular Human (Conc)) 500 UNIT/ML Solution as directed Subcutaneous per insulin pump , Notes to Pharmacist: - Endocrin, Taking Iron 325 (65 Fe) MG Tablet 1 tablet Orally daily , Taking Krill Oil , Taking Levothyroxine Sodium 175 MCG Tablet 1 tablet in the morning on an empty stomach Orally Once a day , Taking Lisinopril 10 MG Tablet 1 tablet Orally Once a day , Taking Lyrica(Pregabalin) 100 MG Capsule 1 capsule Orally Three times a day , Taking Meclizine HCl 25 MG Tablet 1 tablet as needed Orally every 12 hrs , Taking Metoprolol Tartrate 100 MG Tablet 1 tablet with food Orally Twice a day , Taking Montelukast Sodium 10 MG Tablet 1 tablet Orally QD , Taking Nystatin 872489 UNIT/GM Cream 1 application Externally daily , Taking Ondansetron HCl 4 MG Tablet 1 tablet Orally every 8 hours , Taking Pantoprazole Sodium 40 MG Tablet Delayed Release 1 tablet Orally BID , Taking Pepcid(Famotidine) 20 MG Tablet 1 tablet Orally Daily , Taking Plavix(Clopidogrel Bisulfate) 75 MG Tablet 1 tablet Orally Once a day , Taking Repatha SureClick(Evolocumab) 140 MG/ML Solution Auto-injector 1 injection Subcutaneous every 2 weeks , Taking Spiriva Respimat(Tiotropium Pansey Monohydrate) 1.25 MCG/ACT Aerosol Solution 2 puffs Inhalation QD , Taking Symbicort(Budesonide-Formoterol Fumarate) 160-4.5 MCG/ACT Aerosol 2 puffs Inhalation BID , Notes to Pharmacist: Rinse after use, Taking traMADol HCl 50 MG Tablet 1 tablet as needed Orally BID prn , Taking Triamcinolone Acetonide 0.1 % Cream 1 application Externally Twice a day , Taking Trulicity(Dulaglutide) 1.5 MG/0.5ML Solution Pen-injector as directed Subcutaneous weekly , Taking Ventolin HFA(Albuterol Sulfate HFA) 108 (90 Base) MCG/ACT Aerosol Solution 2 puffs as needed for SOB Inhalation Q4H , Taking Vitamin C , Taking Zinc 50 MG Tablet 1 tablet Orally Once a day * Allergies: P enicillin: anaphylaxis - Allergy - Criticality High, Bactrim: anaphylaxis - Allergy - Criticality High, Avelox: hives - Allergy - Criticality Low, Aspirin: vomiting - Allergy - Criticality High, Cephalosporins: hives - Allergy - Criticality Low, Cipro: hives - Allergy - Criticality Low, Percocet: vomiting - Allergy - Criticality High, Cephadyn: hives - Allergy - Criticality Low, Adhesive: Allergy, Statins: Allergy, Azithromycin: hives - Allergy - Criticality Low - Onset Date 05/02/2022, Sulfa Antibiotics, Pollen, Eggs or Egg-derived Products, Soy: anaphylaxis - Allergy - Criticality High, Doxycycline: hives - Allergy. Objective: * Vitals: Assessment: Plan: * Treatment: * Procedures: P FT: Data: PFT 09/03/2017 -FEV1/FVC: 87% -FEV1: 69% -FVC: 63% -Bronchodilator response: None -RV: 92% -T% -DLCO: 70% -FENO 16 PFT 04/06/2012 -FEV1/FVC: 82% -FEV1: 79% -FVC: 78% -Bronchodilator response: None -RV: 103% -T% -DLCO: 94%. * Preventive Medicine: COVID Vaccination: H as patient had COVID Vaccination? COVID Vaccination N o Patient Refused Immunization Status: P neumovacc P bvgche16-41/23/2023. I nfluenza P t Refused. Screenings/Counseling: F ALL RISK SCREENING Fall Risk Assessment: O ne fall with injury in the past year Are you afraid of falling? N o T OBACCO ACTION PLAN Exclusion: M edical Reason Non Smoker Type of Medical Reason: N ot indicated F MEGHAN EXCLUSION Reason: M edical Reason Type of Medical Reason: A dverse reaction to drug B MS ACTION PLAN Above Normal BMI Follow-up D ietary management education, guidance, and counseling * * Electronic signature of Anna Viveros DO on 10/21/2024 at 02:55 PM EDT Sign off status: Pending Visit Status: C ANC (Cancelled) * Provider: Josesito Viveros DO Date: 10/06/2024 Generated for Mark davis/Otilia/eTransmitting on: 10/21/2024 02:55 PM EDT
--- OUTSIDE RECORDS SUMMARY | 2024-10-06 19:39 | XMS_ITS | Encounter Summary ---
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 Role Phone Ann Rocha CNP Primary Care Provider [phone] Reason for Referral * Consultation (Routine) - Pending Review Specialty Diagnoses / Procedures Referred By Contac t Referred To Contact Nutrition Diagnoses Type 2 diabetes mellitus without complication, unspecified whether long chain beamer insulin use ([facility]) Procedures NE OFFICE/OUTPATIENT NEW HIGH MDM 60 MINUTES Ravinder Rodriguez MD [address] [place] [address] [facility] [address] [place] [address] Referral ID Status Reason Start Date Expiration Date Visits Requested Visits Authorized [id number] Pending Review Specialty Services Required 10/07/2024 10/07/2025 1 1 * (Routine) - Pending Review Specialty Diagnoses / Procedures Referred By Contac t Referred To Contact Procedures ECG 12 lead Jake Buckley MD [address] [place] [address] Referral ID Status Reason Start Date Expiration Date V isits Requested Visits Authorized [id number] Pending Review 10/07/2024 10/07/2025 1 1 Reason for Visit * Auth/Cert (Routine) Specialty Diagnoses / Procedures Referred By Contac t Referred To Contact Diagnoses NSTEMI (non-ST elevated myocardial infarction) ([facility]) nstemi, pneumonia Procedures NO CODED SERVICE Zurdo Perera MD [address] [place] [phone] [facility] [address] [place] [address] Referral ID Status Reason Start Date Expiration Date Visits Re quested Visits Authorized [id number] 1 1 Encounter Details Date Type Department Care Team (Late st Contact Info) Description 10/06/2024 7:39 PM EDT - 10/11/2024 3:35 PM EDT Hospital Encounter [facility] [address] [place] [address] Zurdo Perera MD [address] [place] [phone] Ravinder Rodriguez MD [address] [place] [phone] NSTEMI (non-ST elevated myocardial infarction) ([facility]) (Primary Dx); Type 2 diabetes mellitus without complication, unspecified whether long chain beamer insulin use ([facility]); Type 2 diabetes mellitus without complication, with long-term current use of insulin ([facility]); Pneumonia of right lower lobe due to infectious organism; PETRA (obstructive sleep apnea) Discharge Disposition: Home-Health Care [facility] () Social History Tobacco Use Types Packs/Day Years Used Date Smoking Tobacco: Never Smokeless Tobacco: Never Alcohol Use Standard Drinks/Week Comments Never 0 (1 standard drink = 0.6 oz pur e alcohol) [facility] Utilities Answer Date Recorded In the past 12 months has e [employer], gas, oil, or water [employer] threatened to shut off services in your home? No 10/06/2024 Humiliation, Afraid, Rape, and Kick questionnair e Answer Date Recorded Within the last year, have y ou been afraid of your partner or ex-partner? No 10/06/2024 Emotionally Abused Not on file 10/06/2024 Physically Abused Not on file 10/06/2024 Sexually Abused Not on file 10/06/2024 Overall Financial Resource Strain (CARDIA) Answe r Date Recorded How hard is it for you to pa y for the very basics like food, housing, medical care, and heating? Not very hard 10/06/2024 Transportation Answer Date Recorded In the past 12 months, has l ack of transportation kept you from medical appointments or from getting medications? No 10/06/2024 Lack of Transportation (Non-Medical) Not on file 10/06/2024 Housing Stability Vital Sign Answer Chris e Recorded Unable to Pay for Housing in the Last Year Not o n file 10/06/2024 Number of Times Moved in the Last Year Not on fi le 10/06/2024 At any time in the past 12 m [facility], were you homeless or living in a snf (including now)? Yes 10/06/2024 Hunger Vital Sign Answer Date Recorded Within the past 12 months, y ou worried that your food would run out before you got the money to buy more. Never true 10/07/19 25 Ran Out of Food in the Last Year Not on file 10/06/2024 Sex and Gender Information Value Date Recorded Sex Assigned at Female 10/07/2024 10:13 AM EDT Gender Identity Female 10/07/2024 10:13 AM EDT Sexual Orientation Don't know 10/07/2024 10 :13 AM EDT documented as of this encounter Last Filed Vital Signs Vital Sign Reading Time Taken Comments Blood Pressure 126/53 10/11/2024 12:09 PM EDT Pulse 70 10/11/2024 12:09 PM EDT Temperature 36.4 C (97.5 F) 10/11/2024 8:05 AM EDT Respiratory Rate 22 10/11/2024 12:09 PM EDT Oxygen Saturation 97% 10/11/2024 12:09 PM EDT Inhaled Oxygen Concentration - - Weight 120 kg (263 lb 14.3 oz) 10/11/2024 3:52 A M EDT Height 160 cm (5' 2.99 ) 10/06/2024 8:00 PM EDT Body Mass Index 46.76 10/06/2024 8:00 PM EDT documented in this encounter Discharge Summaries * Ravinder Rodriguez MD - 10/10/2024 10:11 AM EDT Images from the original note were not included. Hospital Medicine Discharge Summary Final Discharge Diagnosis: Right lower lobe pneumonia Uncontrolled hyperglycemia with underlying type 2 diabetes mellitus Chronic kidney disease stage II-III Hyperlipidemia Hypothyroidism Hypertension Class III obesity Mildly elevated troponin likely supply/demand mismatch Anemia likely chronic Admission Diagnosis: NSTEMI (non-ST elevated myocardial infarction) ([facility]) [I21.4] Hospital course: [facility] is a 54 y.o. female with medical history notable for mild CAD (cath 2020), T2DM(9.7%), HTN, HLD, presented with three days of cough productive of rust colored sputum. She is currently being treated for community acquired pneumonia and diabetic ketoacidosis. S Notable labs include HS trop 56 trended to 53. ECG demonstrated sinus rhythm. As far as elevated troponin, patient was evaluated by cardiology team they felt patient can have this test outpatient on nonurgent basis Regarding patient's pneumonia, patient started on Rocephin and doxycycline and she will continue ondischarge cefpodoxime and doxycycline for 3 more days. Patient has mild allergy to doxycycline seems with Benadryl he was able to tolerate. Patient also treated for uncontrolled hyperglycemia with insulin drip initially and then transitionto Lantus. On discharge patient to continue her insulin pump at home. Patient had O2 evaluation andqualified for 2 L nasal cannula at rest and 4 L with ambulation Patient on discharge to follow-up with PCP in 1 week. Surgical, Invasive or Diagnostic Procedures Done During Admission: None Consultations During Admission: Cardiology Dear JOSE Rocha, Mary Jane is advised to follow up with you within 1-2 weeks. Items to follow up in ambulatory setting: None Follow-up with: PCP Scheduled appointments: Future Appointments Date Time Provider Department Center 11/09/2024 1:45 PM Rebeca Valadez MD [facility] Your medication list START taking these medications Instructions Last Dose Given Next Dose Due atorvastatin 80 mg tablet Commonly known as: Lipitor Take 1 tablet (80 mg) by mouth at bedtime. cefpodoxime 200 mg tablet Commonly known as: Vantin Take 1 tablet (200 mg) by mouth two times daily for 3 days. diphenhydrAMINE 25 mg capsule Commonly known as: BENADryl Take 1 capsule (25 mg) by mouth two times daily for 3 days. doxycycline 50 mg tablet Commonly known as: Adoxa Take 2 tablets (100 mg) by mouth two times daily for 3 days. Take with a full glass of water and donot lie down for at least 30 minutes after. CHANGE how you take these medications Instructions Last Dose Given Next Dose Due metoprolol tartrate 100 mg tablet Commonly known as: Lopressor What changed: Another medication with the same name was removed. Continue taking this medication, and follow the directions you see here. Take 1 tablet (100 mg) by mouth two times daily. Repatha SureClick 140 mg/mL pen injector Generic drug: evolocumab What changed: Another medication with the same name was removed. Continue taking this medication, and follow the directions you see here. Inject 140 mg under the skin every 14 (fourteen) days. CONTINUE taking these medications Instructions Last Dose Given Next Dose Due albuterol 90 mcg/actuation inhaler allopurinol 300 mg tablet Commonly known as: Zyloprim ascorbic acid 250 MG chewable tablet Commonly known as: Vitamin C biotin 5,000 mcg tablet,disintegrating budesonide-formoteroL 160-4.5 mcg/actuation inhaler Commonly known as: Symbicort clopidogrel 75 mg tablet Commonly known as: Plavix TAKE 1 TABLET (75 MG) BY MOUTH IN THE MORNING Dupixent Pen 300 mg/2 mL pen injector Generic drug: dupilumab fenofibrate 160 mg tablet Commonly known as: Lofibra ferrous sulfate 325 (65 Fe) MG tablet fexofenadine 180 mg tablet Commonly known as: Chacha fluticasone 50 mcg/actuation nasal spray Commonly known as: Flonase furosemide 20 mg tablet Commonly known as: Lasix HumuLIN R U-500 (Conc) Insulin 500 unit/mL CONCENTRATED injection Generic drug: insulin regular Lactobacillus acidophilus 100 mg (1 billion cell) capsule levothyroxine 175 mcg tablet Commonly known as: Synthroid, Levoxyl lisinopril 10 mg tablet Take 1 tablet (10 mg) by mouth in the morning. Lyrica 100 mg capsule Generic drug: pregabalin meclizine 25 mg tablet Commonly known as: Antivert montelukast 10 mg tablet Commonly known as: Singulair pantoprazole 40 mg EC tablet Commonly known as: ProtoNix tiotropium 1.25 mcg/actuation inhaler Commonly known as: Spiriva Respimat Trulicity 4.5 mg/0.5 mL pen injector Generic drug: dulaglutide STOP taking these medications bempedoic acid 180 mg tablet Pepcid 20 mg tablet Generic drug: famotidine rosuvastatin 20 mg tablet Commonly known as: Crestor Where to Get Your Medications These medications were sent to [facility] [place], [place] - [address] [facility] [place] [address] [facility] [address], [facility] [address] atorvastatin 80 mg tablet cefpodoxime 200 mg tablet diphenhydrAMINE 25 mg capsule doxycycline 50 mg tablet Authumn is allergic to sulfamethoxazole-trimethoprim, atorvastatin, azithromycin, cefprozil, ciprofloxacin, egg, keflex [cephalexin], moxifloxacin, other, penicillins, percocet [oxycodone-acetaminophen], simvastatin, soy, aspirin, and doxycycline. Disposition: Home or Self Care () Discharge Condition: Stable Code Status: Full Code Diagnostic Results Hematology: Results from last 7 days Lab Units 10/10/2432110/09/2440810/08/2444310/07/24 0606 WBC AUTO 10*3/uL -- 4.95 -- 9.59 HEMOGLOBIN g/dL 8.5* 8.4* < > 8.4* HEMATOCRIT % 26.2* 25.9* < > 27.0* MCV fL -- 94.9 -- 99.3* PLATELETS AUTO 10*3/uL -- 146* -- 178 < > = values in this interval not displayed. Chemistry: Results from last 7 days Lab Units 10/10/2432110/09/2440810/08/24 0444 SODIUM mmol/L 141 137 140 POTASSIUM mmol/L 3.5 3.7 4.1 CHLORIDE mmol/L 109* 107 109* CO2 mmol/L 24 20* 21 BUN mg/dL 55* 68* 65* CREATININE mg/dL 1.46* 1.67* 1.78* GLUCOSE mg/dL 119* 303* 212* CALCIUM mg/dL 8.1* 7.9* 8.3* No lab exists for component: AFIO2 , APHT , APCOT , APOT , ATCO2 , CK , ALB , IBILI Test Results Pending At Discharge: Pending Labs Order Current Status Blood culture, peripheral #1 Preliminary result Blood culture, peripheral #2 Preliminary result Diet at the time of discharge: regular diet and diabetic diet Activity: Normal activity as tolerated Objective Blood pressure 142/65, pulse 75, temperature 36.3 ??C (97.3 ??F), temperature source Temporal, resp. rate 18, height 1.6 m (5' 2.99 ), weight 118 kg (260 lb), SpO2 100%. General: Alert and oriented x3. Cardiology: Normal rate, regular rhythm. Lungs: Diminished breath sounds bilateral lung bases with occasional rhonchi abdomen: Soft, non tender, non distended. Extremities: No pitting edema. Neurology: No focal neuro deficit noted. Total time for discharge - review of data, exam, discussion with providers and care-team, med-rec and orders, arranging follow up, counseling of patient and/or family and documentation was 60 minutes. Signed Ravinder Rodriguez MD [facility] Medicine 10/10/2024 10:11 AM CC: JOSE Rocha documented in this encounter Discharge Instructions * Discharge Instr - AVS First Page* Halie Lundy RN - 10/11/2024 12:28 PM EDT Any questions or concerns. * Discharge Instr - Activity* Rosalinda Perez LPN - 10/10/2024 10:43 AM EDT PT/OT : evaluate & treat FALL RISK PRECAUTIONS Activity as tolerated * Discharge Instr - Diet* Iza Stauffer RN - 10/10/2024 10:44 AM EDT HEART HEALTHY DIABETIC DIET TOLERATED FINGERSTICK BLOOD SUGAR CHECKS BEFORE MEALS & AT BEDTIME * Appointments* Iza Stauffer RN - 10/10/2024 10:45 AM EDT FOLLOW-UP SCHEDULED WITH [facility]. -Please follow up with the providers listed above. -If you are unable to keep your appointments, please call to reschedule as soon as possible. Upcoming Encounters Date Type Department Care Team (Latest Contact Info) 10/21/2024 1:50 PM EDT Office Visit [facility] [address] [facility] [address] [place] [address] Benito Real, DPM [address] [facility] [address] [place] [address] 12/28/2024 2:10 PM EDT Office Visit [facility] [address] [place] [address] Margarito Moon MD 01/05/2025 2:20 PM EDT Office Visit [facility] [address] [place] [address] Angelia Worley PA * Discharge Instr - Other Orders* Rosalinda Perez LPN - 10/10/2024 3:10 PM EDT HOME O2 @ 2 LITERS PER NASAL CANULA @ REST, 4 LITERS WITH [facility]ITY [facility] SOON YOU ARRIVE HOME SO THEY CAN EXCHANGE THE TANK & SET YOU UPFOR HOME OXYGEN. PH# [phone] or [phone]. Right abd: cleanse with soap and water, pat dry daily. Keep clean and dry. Left buttocks: cleanse with soap and water, pat dry daily. Keep clean and dry. * Attachments The following attachments cannot be sent through Care Everywhere. * Heart Attack - Warning Signs and What to Do (Japanese) documented in this encounter Medications at Time of Discharge Medication Sig Dispensed Refills Start Date End Date albuterol 90 mcg/actuation inhaler INHALE 2 PUFFS EVERY 4 HOURS NEEDED FOR SHORTNESS OF BREATH 07/02/2010 allopurinol (Zyloprim) 300 mg tablet Take 1 tablet by mouth in the morning. ascorbic acid (Vitamin C) 250 MG chewable tablet Chew 250 mg in the morning. atorvastatin (Lipitor) 80 mg tabletIndications:Type 2 diabetes mellitus without complication, with long-term current use of insulin ([facility]) Take 1 tablet (80 mg) by mouth at bedtime. 30 tablet 10/10/2024 11/09/2024 biotin 5,000 mcg tablet,disintegrating Take 10,000 mcg by mouth in the morning. budesonide-formoteroL (Symbicort) 160-4.5 mcg/actuation inhaler Inhale 2 puffs twice a day by inhalation route. 10/06/2017 clopidogrel (Plavix) 75 mg tabletIndications:Jacob nary artery disease due to lipid rich plaque TAKE 1 TABLET (75 MG) BY MOUTH IN THE MORNING 90 tablet 3 07/28/2024 07/28/2025 diphenhydrAMINE 25 mg capsuleIndications:Pne umonia of right lower lobe due to infectious organism Take 1 capsule (25 mg) by mouth two times daily for 3 days. 6 capsule 10/10/2024 Dupixent Pen 300 mg/2 mL pen injector evolocumab (Repatha SureClick) 140 mg/mL pen injectorIndications:Co ronary artery disease involving [place] coronary artery of [place] heart without angina pectoris Inject 140 mg under the skin every 14 (fourteen) days. 6 mL 3 07/07/2024 fenofibrate (Lofibra) 160 mg tablet Take 1 tablet by mouth at bedtime. 10/06/2017 ferrous sulfate 325 (65 Fe) MG tablet Take 325 mg by mouth. fexofenadine (Chacha) 180 mg tablet Take 180 mg by mouth in the morning. 07/02/2010 fluticasone (Flonase) 50 mcg/actuation nasal spray Administer 1 spray into each nostril if needed each day for rhinitis. Shake gently. Before first use, prime pump. After use, clean tip and replace cap. furosemide (Lasix) 20 mg tablet Take 20 mg by mouth in the morning and at bedtime. 07/02/2010 HumuLIN R U-500, Conc, Insulin 500 unit/mL CONCENTRATED injection USE WITH INSULIN PUMP (EXPECT UP TO 200 UNITS TOTAL DAILY Lactobacillus acidophilus 100 mg (1 billion cell) capsule Take 100 mg by mouth in the morning. levothyroxine (Synthroid, Levoxyl) 175 mcg tablet TAKE ONE TABLET BY MOUTH IN THE MORNING DAILY ON AN EMPTY STOMACH, WAIT 30 MIN BEFORE EATING OR DRINKING 10/23/2020 lisinopril 10 mg tabletIndications:Esse ntial hypertension Take 1 tablet (10 mg) by mouth in the morning. 90 tablet 3 11/03/2023 11/02/2024 Lyrica 100 mg capsule Take 100 mg by mouth three times daily. meclizine (Antivert) 25 mg tablet Take 25 mg by mouth if needed in the morning and at bedtime for dizziness. metoprolol tartrate (Lopressor) 100 mg tabletIndications:SVT (supraventricular tachycardia),Benign hypertensive heart disease without congestive heart failure Take 1 tablet (100 mg) by mouth two times daily. 180 tablet 3 07/07/2024 07/07/2025 montelukast (Singulair) 10 mg tablet Take 10 mg by mouth in the morning. pantoprazole (ProtoNix) 40 mg EC tablet Take 1 tablet by mouth in the morning and at bedtime. 11/03/2017 tiotropium (Spiriva Respimat) 1.25 mcg/actuation inhaler INHALE 2 PUFFS DAILY Trulicity 4.5 mg/0.5 mL pen injector Inject 4.5 mg under the skin every 7 (seven) days. 07/07/2023 cefpodoxime (Vantin) 200 mg tabletIndications:Pneu monia of right lower lobe due to infectious organism Take 1 tablet (200 mg) by mouth two times daily for 3 days. 6 tablet 10/10/2024 10/13/2024 doxycycline (Adoxa) 50 mg tabletIndications:Pneu monia of right lower lobe due to infectious organism Take 2 tablets (100 mg) by mouth two times daily for 3 days. Take with a full glass of water and do not lie down for at least 30 minutes after. 12 tablet 10/10/2024 10/13/2024 documented as of this encounter Progress Notes * Elham Chen - 10/11/2024 1:13 PM EDT discharge planning: to Home with [facility] resuming services AVS sent to [facility], via [employer] system * RAJENDRA Angel LSW - 10/10/2024 1:43 PM EDT Patient is currently enrolled with [facility]; updates have been sent. A follow-up phone call confirmed that the patient remains active and is eligible to resume services. * Ravinder Rodriguez MD - 10/09/2024 10:38 AM EDT Images from the original note were not included. Hospital Medicine Daily Progress Note - 10/09/2024 10:38 AM; Room: [address] [place] [address] Admission: 10/06/2024 7:39 PM; Length of stay: 3 days THE HOSPITALIST TEAM PREFERS TO USE [employer] CHAT FOR NON-URGENT COMMUNICATION 7AM- 7PM. IF I DO NOT RESPOND WITHIN 20 MINUTES OR URGENT MATTERS, PLEASE CALL THROUGH THE CLINICAL PRACTICE CONSULTANT. FROM 7PM-7AM, PLEASE PAGE [phone](COVR). Code Status: Full Code Barriers to Discharge: insulin, doxycycline, ceftriaxone Expected Discharge Date: 10/10/2024 Discharge Destination: home Overview Patient is seen for evaluation and management of pneumonia, NSTEMI, type II DM. Subjective Seen today in her room, breathing better, on 2 L nasal cannula still her blood sugar not well-controlled Physical Exam Visit Vitals BP 152/71 (BP Location: Left arm, Patient Position: Lying) Pulse 80 Temp 36.5 ??C (97.7 ??F) (Temporal) Resp 20 Intake/Output Summary (Last 24 hours) at 10/09/2024 1038 Last data filed at 10/09/2024 0820 Gross per 24 hour Intake 800 ml Output 2450 ml Net -1650 ml Physical Exam Cardiovascular: Rate and Rhythm: Normal rate and regular rhythm. Pulmonary: Breath sounds: Rales present. Neurological: Mental Status: She is alert. Estimated body mass index is 47.66 kg/m?? as calculated from the following: Height as of this encounter: 1.6 m (5' 2.99 ). Weight as of this encounter: 122 kg (268 lb 15.4 oz). Assessment and Plan Assessment & Plan NSTEMI (non-ST elevated myocardial infarction) ([facility]) Repeat troponin Discontinue heparin drip Perform stress test in outpatient post recovery from acute illness Pneumonia of right lower lobe due to infectious organism Continue treatment with ceftriaxone and doxycycline, follow-up culture results Add benadryl to use with doxycycline for allergic reaction Acute on chronic anemia monitor hemoglobin, transfuse for hemoglobin less than 7 Monitor clinically for source of bleeding Acquired hypothyroidism continue levothyroxine Hyperlipidemia reports allergy/intolerance of statins Continue fenofibrate Insulin dependent type 2 diabetes mellitus ([facility]) uncontrolled with hyperglycemia due to noncompliance of insulin Normally has an insulin pump but she left at home Insulin drip was discontinued and patient switched to 50 Lantus twice daily will increase the dose today to 60 twice daily. Patient can continue her home insulin pump on discharge A1c 9.0 Class 3 obesity BMI 44.12 --> 48.01 Essential hypertension continue oral antihypertensives History of supraventricular tachycardia Continue rate control medications with Lopressor Chronic kidney disease (CKD), stage III (moderate) ([facility]) Creatinine seems at baseline GERD (gastroesophageal reflux disease) continue PPI VTE Prophylaxis: Heparin sub-q Scheduled Meds allopurinol, 300 mg, oral, Daily ascorbic acid, 250 mg, oral, Daily atorvastatin, 80 mg, oral, Nightly cetirizine, 10 mg, oral, Daily clopidogrel, 75 mg, oral, Daily famotidine, 20 mg, oral, Daily fenofibrate, 160 mg, oral, Nightly ferrous sulfate, 325 mg, oral, Daily with breakfast furosemide, 20 mg, oral, BID heparin (porcine), 5,000 Units, subcutaneous, BID insulin glargine, 60 Units, subcutaneous, BID insulin lispro, 0-10 Units, subcutaneous, TID with meals And insulin lispro, 0-8 Units, subcutaneous, Nightly lactobacillus acidophilus, 1 capsule, oral, Daily levothyroxine, 175 mcg, oral, Daily before breakfast metoprolol tartrate, 100 mg, oral, BID mometasone-formoterol, 2 puff, inhalation, BID montelukast, 10 mg, oral, Daily Oxygen Therapy, , inhalation, Continuous pantoprazole, 40 mg, oral, BID pregabalin, 100 mg, oral, TID umeclidinium, 1 puff, inhalation, Daily Pertinent Investigations Hematology: Results from last 7 days Lab Units 10/09/24 0409 10/08/24 0444 10/07/24 0606 WBC AUTO 10*3/uL 4.95 -- 9.59 HEMOGLOBIN g/dL 8.4* 7.8* 8.4* HEMATOCRIT % 25.9* 24.7* 27.0* MCV fL 94.9 -- 99.3* PLATELETS AUTO 10*3/uL 146* -- 178 Chemistry: Results from last 7 days Lab Units 10/09/24 0409 10/08/24 0444 10/07/24 0101 SODIUM mmol/L 137 140 136 POTASSIUM mmol/L 3.7 4.1 5.1 CHLORIDE mmol/L 107 109* 102 CO2 mmol/L 20* 21 9* BUN mg/dL 68* 65* 41* CREATININE mg/dL 1.67* 1.78* 1.70* GLUCOSE mg/dL 303* 212* 649* CALCIUM mg/dL 7.9* 8.3* 8.6 No lab exists for component: AFIO2 , APHT , APCOT , APOT , ATCO2 , CK , ALB , IBILI Results from last 7 days Lab Units 10/09/24 0751 10/08/24 2031 10/08/24 1608 10/08/24 1301 10/08/24 1159 10/08/24 1115 POCT GLUCOSE mg/dL 299* 285* 217* 175* 225* 213* Historical Values: (Includes values prior to this admission) Lab Results Component Value Date HDL 26 10/07/2024 LDL 121 10/07/2024 No results found for: [id number] , IRON , TIBC , C3 , C4 , BRITTANY , CANCA , ASO , PSA , CEA , CA125 , CA199 , AFP , CA153 Imaging Complete Echo (TTE) w/wo Imaging Agent, Strain, 3D, Bubble Study 1 [facility] [address] [place] [address] [phone] (fax) Echocardiogram-[facility] Name: MARY JANE SCHAEFFER Study Date: 10/07/2024 02:33 PM B/P: 137 mmHg/53 mmHg HR: 77 bpm Date of : 1970 Location: [facility] Height: 63 in. Age: 54 year(s) Patient Room: 3120 Weight: 270 lb. Gender: Female Patient Status: InPt BSA: 2.2 m2 Indication: Angina, Shortness of Breath, elevated troponin Apical images are off-axis Examination: Echocardiogram (Complete), Lumason Contrast Image Quality: Poor sound transmission in apical views Patient Consent: Procedure explained to patient Exam Details Contrast: I.V. dose of Lumason Conclusions Left Ventricle: The left ventricle is normal size. Global left ventricular systolic function is normal. EF range is estimated at 60 % -65 %. Left ventricular wall thickness is mildly increased. The septum is abnormal, consistent with RV volume and/or pressure overload. Unable to assess diastolic dysfunction. Right Ventricle: The right ventricle appears enlarged. Right ventricular systolic function appears reduced. Unable to assess right sided pressures due to lack of measurable tricuspid regurgitation. Left Atrium: Left atrium is poorly visualized. Right Atrium: Right atrium is poorly visualized. Pericardium: There is a small pericardial effusion. Overall Conclusions: Due to suboptimal imaging Lumason contrast was administered for opacification and better delineation of endocardial borders. No significant valvular abnormalities Measurements Left Ventricle Label Value Normal Value LVOTd 1.9 cm (18cm - 20cm) LVDd, 2D 4.6 cm (3.9cm - 5.3cm) LVDs, 2D 3.23 cm (2.1cm - 4cm) IVSd, 2D 1.25 cm (0.6cm - 1.1cm) LVPWd, 2D 1.21 cm (0.6cm - 0.9cm) LV Mass, 2D ASE 212.39 g LV Mass Index, 2D ASE 96.5 g/m?? (44g/m?? - 88.4g/m??) RWT, MM 0.53 (0 - 0.42) LVSVI, 2D 25 ml/m2 Left Atrium Label Value Normal Value LADs, 2D 3.6 cm (2.7cm - 3.8cm) Mitral Valve Label Value Normal Value MV E Vmax 1.02 m/s MV A Vmax 0.6 m/s MV E/A 1.7 MV E/E' lateral 20.8 MV E' lateral 0.05 m/s Aorta Label Value Normal Value AoRoot, 2D 2.7 cm (1.4cm - 3.8cm) Great Vessels Label Value Normal Value IVC 2.4 cm (1.2cm - 2.3cm) Valvular Assessment LVOT 0.7 - 1.1 m/sec Aortic Valve 1.0 - 1.7 m/sec Mitral Valve 0.6 - 1.3 m/sec Tricuspid Valve 0.3 - 0.7 m/sec Pulmonic Valve 0.6 - 0.9 m/sec Regurgitation No Trivial Trivial Stenosis No No No Max Velocity 1.02 m/sec Findings Left Ventricle: The left ventricle is normal size. Global left ventricular systolic function is normal. EF range is estimated at 60 % -65 %. Left ventricular wall thickness is mildly increased. The septum is abnormal, consistent with RV volume and/or pressure overload. Unable to assess diastolic dysfunction. Left atrial filling pressure is elevated. Right Ventricle: Right ventricle is poorly visualized. The right ventricle appears enlarged. Right ventricular systolic function appears reduced. Unable to assess right sided pressures due to lack of measurable tricuspid regurgitation. Left Atrium: Left atrium is poorly visualized. Right Atrium: Right atrium is poorly visualized. Mitral Valve: There is nonspecific thickening of the mitral valve leaflet. Trivial mitral regurgitation. No mitral valve stenosis. Aortic Valve: The aortic valve is normal. No aortic valve regurgitation. No aortic valve stenosis. The aortic valve is trileaflet. Tricuspid Valve: Normal tricuspid valve. Trivial tricuspid regurgitation. No tricuspid valve stenosis. Pulmonic Valve: Pulmonic valve is poorly visualized. Aorta: The aortic root exhibits normal size. Great Vessels: IVC: The IVC is dilated. There is no inspiratory collapse of the IVC. Pericardium: There is a small pericardial effusion. Procedure Staff Reading Group: [facility] Referring Physician: RAVINDER RODRIGUEZ Blood Bank Laboratory Professional: ERMIAS Mckee Ordering Physician: JAKE BUCKLEY 12 lead Normal sinus rhythm Nonspecific T wave abnormality Abnormal ECG When compared with ECG of 09-NOV-2020 07:35, Nonspecific T wave abnormality now evident in Anterior leads Confirmed by Gino FABIAN., L.S. (2) on 10/07/2024 12:01:23 PM XR chest 1 view Narrative: XR CHEST 1 VIEW 10/07/2024 9:43 AM CLINICAL INDICATIONS: Pneumonia COMPARISON: None FINDINGS: Bilateral pulmonary infiltrates. Small effusions and atelectasis. No pneumothorax. Heart size stable. Impression: Extensive pulmonary infiltrates consistent with edema and/or multifocal pneumonia. Electronically signed: Arthur Shepherd. Discharge Planning Expected Discharge Disposition: Home-Health Care [facility] (06) Signed Ravinder Rodriguez MD, 3rd year medical student Hospital Medicine 10/09/2024 10:38 AM As the teaching physician, I have personally performed or re-performed the history of present illness, physical exam and medical decision-making activities of the encounter and verified the medical student's documentation. I made pertinent changes as necessary to ensure accurate documentation. There may be additional comments below. * Ravinder Rodriguez MD - 10/08/2024 8:03 AM EDT Images from the original note were not included. [facility] Medicine Daily Progress Note - 10/08/2024 8:04 AM; Room: [address] [place] [address] Admission: 10/06/2024 7:39 PM; Length of stay: 2 days THE HOSPITALIST TEAM PREFERS TO USE [employer] FOR NON-URGENT COMMUNICATION 7AM- 7PM. IF I DO NOT RESPOND WITHIN 20 MINUTES OR URGENT MATTERS, PLEASE CALL THROUGH THE CLINICAL PRACTICE CONSULTANT. FROM 7PM-7AM, PLEASE PAGE [phone](COVR). Code Status: Full Code Barriers to Discharge: insulin, doxycycline, ceftriaxone Expected Discharge Date: 10/09/2024 Discharge Destination: home Overview Patient is seen for evaluation and management of pneumonia, NSTEMI, type II DM. [facility] is a 54 y.o. female presenting with right lower lobe pneumonia, NSTEMI, type II DM, and CKDIII. She states that her shortness of breath has subsided at rest, but is still present on exertion. Cough is also still present and producing yellow-colored sputum. She states that her coughimproves when on oxygen. She denies any chest pain in relation to her NSTEMI diagnosis, but notes that she has pain in her chest when she coughs. With regards to her type II DM, she states that she is feeling better after being on insulin drip. Physical Exam Visit Vitals BP 120/53 (BP Location: Left arm, Patient Position: Lying) Pulse 62 Temp 36.3 ??C (97.3 ??F) (Temporal) Resp 18 Intake/Output Summary (Last 24 hours) at 10/08/2024 0804 Last data filed at 10/07/2024 2211 Gross per 24 hour Intake 955 ml Output 650 ml Net 305 ml Physical Exam Cardiovascular: Rate and Rhythm: Normal rate and regular rhythm. Pulmonary: Breath sounds: Rales present. Neurological: Mental Status: She is alert. Estimated body mass index is 48.01 kg/m?? as calculated from the following: Height as of this encounter: 1.6 m (5' 2.99 ). Weight as of this encounter: 123 kg (270 lb 15.1 oz). Assessment and Plan Assessment & Plan NSTEMI (non-ST elevated myocardial infarction) ([facility]) Repeat troponin Discontinue heparin drip Perform stress test in outpatient post recovery from acute illness Pneumonia of right lower lobe due to infectious organism Continue treatment with ceftriaxone and doxycycline, follow-up culture results Add benadryl to use with doxycycline for allergic reaction Acute on chronic anemia monitor hemoglobin, transfuse for hemoglobin less than 7 Monitor clinically for source of bleeding Acquired hypothyroidism continue levothyroxine Hyperlipidemia reports allergy/intolerance of statins Continue fenofibrate Insulin dependent type 2 diabetes mellitus ([facility]) uncontrolled with hyperglycemia due to noncompliance of insulin Normally has an insulin pump but she left at home Will start insulin drip to evaluate insulin requirement and then transition to basal/bolus regimen check hemoglobin A1c Discontinue insulin drip 2 hours after first dose of glargine (Lantus) 50 units BID Class 3 obesity BMI 44.12 --> 48.01 Essential hypertension continue oral antihypertensives History of supraventricular tachycardia Chronic kidney disease (CKD), stage III (moderate) ([facility]) baseline unclear, monitor renal function, monitor I's and O's GERD (gastroesophageal reflux disease) continue PPI VTE Prophylaxis: Heparin sub-q Scheduled Meds allopurinol, 300 mg, oral, Daily ascorbic acid, 250 mg, oral, Daily atorvastatin, 80 mg, oral, Nightly cefTRIAXone, 2 g, intravenous, q24h cetirizine, 10 mg, oral, Daily clopidogrel, 75 mg, oral, Daily doxycycline, 100 mg, oral, q12h famotidine, 20 mg, oral, Daily fenofibrate, 160 mg, oral, Nightly ferrous sulfate, 325 mg, oral, Daily with breakfast furosemide, 20 mg, oral, BID lactobacillus acidophilus, 1 capsule, oral, Daily levothyroxine, 175 mcg, oral, Daily before breakfast metoprolol tartrate, 100 mg, oral, BID mometasone-formoterol, 2 puff, inhalation, BID montelukast, 10 mg, oral, Daily Oxygen Therapy, , inhalation, Continuous pantoprazole, 40 mg, oral, BID pregabalin, 100 mg, oral, TID umeclidinium, 1 puff, inhalation, Daily insulin regular in 0.9 % NaCl, 0-60 Units/hr, Last Rate: 4.5 Units/hr (10/08/24 0704) Pertinent Investigations Hematology: Results from last 7 days Lab Units 10/08/24 0444 10/07/24 0606 10/06/24 2235 WBC AUTO 10*3/uL -- 9.59 5.88 HEMOGLOBIN g/dL 7.8* 8.4* 8.5* HEMATOCRIT % 24.7* 27.0* 29.0* MCV fL -- 99.3* 105.8* PLATELETS AUTO 10*3/uL -- 178 126* Chemistry: Results from last 7 days Lab Units 10/08/24 0444 10/07/24 0101 SODIUM mmol/L 140 136 POTASSIUM mmol/L 4.1 5.1 CHLORIDE mmol/L 109* 102 CO2 mmol/L 21 9* BUN mg/dL 65* 41* CREATININE mg/dL 1.78* 1.70* GLUCOSE mg/dL 212* 649* CALCIUM mg/dL 8.3* 8.6 No lab exists for component: AFIO2 , APHT , APCOT , APOT , ATCO2 , CK , ALB , IBILI Results from last 7 days Lab Units 10/08/24 0703 10/08/24 0603 10/08/24 0508 10/08/24 0345 10/08/24 0248 10/08/24 0147 POCT GLUCOSE mg/dL 220* 233* 209* 251* 256* 203* Historical Values: (Includes values prior to this admission) Lab Results Component Value Date HDL 26 10/07/2024 LDL 121 10/07/2024 No results found for: CYYUIFFH46 , IRON , TIBC , C3 , C4 , BRITTANY , CANCA , ASO , PSA , CEA , CA125 , CA199 , AFP , CA153 Imaging Complete Echo (TTE) w/wo Imaging Agent, Strain, 3D, Bubble Study 1 1 [facility] Heart [facility] [address] [place] [address] [phone] (fax) Echocardiogram-[facility] Name: MARY JANE SCHAEFFER Study Date: 10/07/2024 02:33 PM B/P: 137 mmHg/53 mmHg HR: 77 bpm Date of : 1970 Location: [facility] Height: 63 in. Age: 54 year(s) Patient Room: 3120 Weight: 270 lb. Gender: Female Patient Status: InPt BSA: 2.2 m2 Indication: Angina, Shortness of Breath, elevated troponin Apical images are off-axis Examination: Echocardiogram (Complete), Lumason Contrast Image Quality: Poor sound transmission in apical views Patient Consent: Procedure explained to patient Exam Details Contrast: I.V. dose of Lumason Conclusions Left Ventricle: The left ventricle is normal size. Global left ventricular systolic function is normal. EF range is estimated at 60 % -65 %. Left ventricular wall thickness is mildly increased. The septum is abnormal, consistent with RV volume and/or pressure overload. Unable to assess diastolic dysfunction. Right Ventricle: The right ventricle appears enlarged. Right ventricular systolic function appears reduced. Unable to assess right sided pressures due to lack of measurable tricuspid regurgitation. Left Atrium: Left atrium is poorly visualized. Right Atrium: Right atrium is poorly visualized. Pericardium: There is a small pericardial effusion. Overall Conclusions: Due to suboptimal imaging Lumason contrast was administered for opacification and better delineation of endocardial borders. No significant valvular abnormalities Measurements Left Ventricle Label Value Normal Value LVOTd 1.9 cm (18cm - 20cm) LVDd, 2D 4.6 cm (3.9cm - 5.3cm) LVDs, 2D 3.23 cm (2.1cm - 4cm) IVSd, 2D 1.25 cm (0.6cm - 1.1cm) LVPWd, 2D 1.21 cm (0.6cm - 0.9cm) LV Mass, 2D ASE 212.39 g LV Mass Index, 2D ASE 96.5 g/m?? (44g/m?? - 88.4g/m??) RWT, MM 0.53 (0 - 0.42) LVSVI, 2D 25 ml/m2 Left Atrium Label Value Normal Value LADs, 2D 3.6 cm (2.7cm - 3.8cm) Mitral Valve Label Value Normal Value MV E Vmax 1.02 m/s MV A Vmax 0.6 m/s MV E/A 1.7 MV E/E' lateral 20.8 MV E' lateral 0.05 m/s Aorta Label Value Normal Value AoRoot, 2D 2.7 cm (1.4cm - 3.8cm) Great Vessels Label Value Normal Value IVC 2.4 cm (1.2cm - 2.3cm) Valvular Assessment LVOT 0.7 - 1.1 m/sec Aortic Valve 1.0 - 1.7 m/sec Mitral Valve 0.6 - 1.3 m/sec Tricuspid Valve 0.3 - 0.7 m/sec Pulmonic Valve 0.6 - 0.9 m/sec Regurgitation No Trivial Trivial Stenosis No No No Max Velocity 1.02 m/sec Findings Left Ventricle: The left ventricle is normal size. Global left ventricular systolic function is normal. EF range is estimated at 60 % -65 %. Left ventricular wall thickness is mildly increased. The septum is abnormal, consistent with RV volume and/or pressure overload. Unable to assess diastolic dysfunction. Left atrial filling pressure is elevated. Right Ventricle: Right ventricle is poorly visualized. The right ventricle appears enlarged. Right ventricular systolic function appears reduced. Unable to assess right sided pressures due to lack of measurable tricuspid regurgitation. Left Atrium: Left atrium is poorly visualized. Right Atrium: Right atrium is poorly visualized. Mitral Valve: There is nonspecific thickening of the mitral valve leaflet. Trivial mitral regurgitation. No mitral valve stenosis. Aortic Valve: The aortic valve is normal. No aortic valve regurgitation. No aortic valve stenosis. The aortic valve is trileaflet. Tricuspid Valve: Normal tricuspid valve. Trivial tricuspid regurgitation. No tricuspid valve stenosis. Pulmonic Valve: Pulmonic valve is poorly visualized. Aorta: The aortic root exhibits normal size. Great Vessels: IVC: The IVC is dilated. There is no inspiratory collapse of the IVC. Pericardium: There is a small pericardial effusion. Procedure Staff Reading Group: [facility] Referring Physician: RAVINDER RODRIGUEZ Blood Bank Laboratory Professional: ERMIAS Mckee Ordering Physician: JAKE BUCKLEY 12 lead Normal sinus rhythm Nonspecific T wave abnormality Abnormal ECG When compared with ECG of 09-NOV-2020 07:35, Nonspecific T wave abnormality now evident in Anterior leads Confirmed by Gino FABIAN., L.S. (2) on 10/07/2024 12:01:23 PM XR chest 1 view Narrative: XR CHEST 1 VIEW 10/07/2024 9:43 AM CLINICAL INDICATIONS: Pneumonia COMPARISON: None FINDINGS: Bilateral pulmonary infiltrates. Small effusions and atelectasis. No pneumothorax. Heart size stable. Impression: Extensive pulmonary infiltrates consistent with edema and/or multifocal pneumonia. Electronically signed: Arthur Shepherd. Discharge Planning Expected Discharge Disposition: Home-Health Care [facility] (06) Signed Imer Sherman, 3rd year medical student [facility] Medicine 10/08/2024 8:04 AM As the teaching physician, I have personally performed or re-performed the history of present illness, physical exam and medical decision-making activities of the encounter and verified the medical student's documentation. I made pertinent changes as necessary to ensure accurate documentation. There may be additional comments below. * Shivam Amaya - 10/08/2024 6:25 AM EDT Images from the original note were not included. Cardiology Progress Note Subjective Subjective: Mary Jane Schaeffer was seen and examined at bedside. No acute events noted since last cardiology evaluation. Denies chest pain, palpitations, dyspnea, nausea, diaphoresis. Objective: Patient Vitals for the past 24 hrs: BP Temp Temp src Pulse Resp SpO2 Weight 10/08/24 0550 -- -- -- -- -- -- 123 kg (270 lb 15.1 oz) 10/08/24 0400 120/53 36.3 ??C (97.3 ??F) Temporal 62 18 93 % -- 10/07/24 1940 138/61 35.9 ??C (96.6 ??F) Temporal 82 22 95 % -- 10/07/24 0700 -- 37 ??C (98.6 ??F) Temporal -- -- -- -- Physical Examination: GENERAL: AOx3, in no acute distress. HEAD: Atraumatic, normocephalic. EYES: PERRLA, EOMI. NECK: No JVD present. CARDIAC: RRR. No murmur, rubs, or gallops. RESPIRATORY: CTAB, no increased work of breathing. ABDOMEN: Soft, nontender, nondistended. EXTREMITIES: Trace pitting lower extremity edema, peripheral pulses are 2+ bilaterally. NEURO: No focal deficits Relevant Lab Results Encounter Date: 10/06/24 ECG 12 lead Result Value Ventricular Rate 78 Atrial Rate 78 NE Interval 138 QRS DURATION 88 QT Interval 398 QTC CALCULATION(BAZETT) 453 P [place] 62 R-[place] 83 T Wave [place] 42 Impression Normal sinus rhythm Nonspecific T wave abnormality Abnormal ECG When compared with ECG of 09-NOV-2020 07:35, Nonspecific T wave abnormality now evident in Anterior leads Confirmed by Steve FABIAN, L.S. (2) on 10/07/2024 12:01:23 PM No results found for: CKTOTAL , CKMB , CKMBINDEX , TROPONINI Complete Echo (TTE) w/wo Imaging Agent, Strain, 3D, Bubble Study Result Date: 10/07/2024 1 1 [facility] Heart [facility] [address] [place] [address] [phone] (fax) Echocardiogram-[facility] Name: MARY JANE SANTOS Study Date: 10/07/2024 02:33 PM B/P: 137 mmHg/53 mmHg HR: 77 bpm Date of : 1970 Location: [facility] Height: 63 in. Age: 54 year(s) Patient Room: 3120 Weight: 270 lb. Gender: Female Patient Status: InPt BSA: 2.2 m2 Indication: Angina, Shortness of Breath, elevated troponin Apical images are off-axis Examination: Echocardiogram (Complete), Lumason Contrast Image Quality: Poor sound transmission in apical views Patient Consent: Procedure explained to patient Exam Details Contrast: I.V. doseof Lumason Conclusions Left Ventricle: The left ventricle is normal size. Global left ventricular systolic function is normal. EF range is estimated at 60 % -65 %. Left ventricular wall thickness is mildly increased. The septum is abnormal, consistent with RV volume and/or pressure overload. Unableto assess diastolic dysfunction. Right Ventricle: The right ventricle appears enlarged. Right ventricular systolic function appears reduced. Unable to assess right sided pressures due to lack of measurable tricuspid regurgitation. Left Atrium: Left atrium is poorly visualized. Right Atrium: Right atrium is poorly visualized. Pericardium: There is a small pericardial effusion. Overall Conclusions:Due to suboptimal imaging Lumason contrast was administered for opacification and better delineation of endocardial borders. No significant valvular abnormalities Measurements Left Ventricle Label Value Normal Value LVOTd 1.9 cm (18cm - 20cm) LVDd, 2D 4.6 cm (3.9cm - 5.3cm) LVDs, 2D 3.23 cm (2.1cm - 4cm) IVSd, 2D 1.25 cm (0.6cm - 1.1cm) LVPWd, 2D 1.21 cm (0.6cm - 0.9cm) LV Mass, 2D ASE 212.39 g LV Mass Index, 2D ASE 96.5 g/m?? (44g/m?? - 88.4g/m??) RWT, MM 0.53 (0 - 0.42) LVSVI, 2D 25 ml/m2 Left Atrium Label Value Normal Value LADs, 2D 3.6 cm (2.7cm - 3.8cm) Mitral Valve Label Value Normal Value MV E Vmax 1.02 m/s MV A Vmax 0.6 m/s MV E/A 1.7 MV E/E' lateral 20.8 MV E' lateral 0.05 m/s Aorta Label Value Normal Value AoRoot, 2D 2.7 cm (1.4cm - 3.8cm) Great Vessels Label Value Normal Value IVC 2.4 cm (1.2cm - 2.3cm) Valvular Assessment LVOT 0.7 - 1.1 m/sec Aortic Valve 1.0 - 1.7 m/sec Mitral Valve 0.6 - 1.3 m/sec Tricuspid Valve 0.3 - 0.7 m/sec Pulmonic Valve 0.6 - 0.9 m/sec Regurgitation No Trivial Trivial Stenosis No No No Max Velocity 1.02 m/sec Findings Left Ventricle: The left ventricle is normal size. Global left ventricular systolic function is normal. EF range is estimated at 60 % -65 %. Left ventricular wall thickness is mildly increased. The septum is abnormal, consistent with RV volume and/or pressure overload. Unable to assess diastolic dysfunction. Left atrial filling pressure is elevated. Right Ventricle: Right ventricle is poorly visualized. The right ventricle appears enlarged. Right ventricular systolic function appears reduced. Unable to assess right sided pressures due to lack of measurable tricuspid regurgitation. Left Atrium: Left atrium is poorly visua lized. Right Atrium: Right atrium is poorly visualized. Mitral Valve: There is nonspecific thickening of the mitral valve leaflet. Trivial mitral regurgitation. No mitral valve stenosis. Aortic Valve: The aortic valve is normal. No aortic valve regurgitation. No aortic valve stenosis. The aortic [place] ve is trileaflet. Tricuspid Valve: Normal tricuspid valve. Trivial tricuspid regurgitation. No tricuspid valve stenosis. Pulmonic Valve: Pulmonic valve is poorly visualized. Aorta: The aortic root exhibits normal size. Great Vessels: IVC: The IVC is dilated. There is no inspiratory collapse of the IVC. Pericardium: There is a small pericardial effusion. Procedure Staff Reading Group: [facility] Referring Physician: RAVINDER RODRIGUEZ Blood Bank Laboratory Professional: ERMIAS Mckee Ordering Physician: JAKE BUCKLEY No nuclear medicine results found for the past 12 months Relevant Imaging Results Complete Echo (TTE) w/wo Imaging Agent, Strain, 3D, Bubble Study 1 1 [facility] Heart [facility] [address], [place] [phone] (fax) Echocardiogram-[facility] Name: MARY JANE SANTOS Study Date: 10/07/2024 02:33 PM B/P: 137 mmHg/53 mmHg HR: 77 bpm Date of : 1970 Location: [facility] Height: 63 in. Age: 54 year(s) Patient Room: 3120 Weight: 270 lb. Gender: Female Patient Status: InPt BSA: 2.2 m2 Indication: Angina, Shortness of Breath, elevated troponin Apical images are off-axis Examination: Echocardiogram (Complete), Lumason Contrast Image Quality: Poor sound transmission in apical views Patient Consent: Procedure explained to patient Exam Details Contrast: I.V. dose of Lumason Conclusions Left Ventricle: The left ventricle is normal size. Global left ventricular systolic function is normal. EF range is estimated at 60 % -65 %. Left ventricular wall thickness is mildly increased. The septum is abnormal, consistent with RV volume and/or pressure overload. Unable to assess diastolic dysfunction. Right Ventricle: The right ventricle appears enlarged. Right ventricular systolic function appears reduced. Unable to assess right sided pressures due to lack of measurable tricuspid regurgitation. Left Atrium: Left atrium is poorly visualized. Right Atrium: Right atrium is poorly visualized. Pericardium: There is a small pericardial effusion. Overall Conclusions: Due to suboptimal imaging Lumason contrast was administered for opacification and better delineation of endocardial borders. No significant valvular abnormalities Measurements Left Ventricle Label Value Normal Value LVOTd 1.9 cm (18cm - 20cm) LVDd, 2D 4.6 cm (3.9cm - 5.3cm) LVDs, 2D 3.23 cm (2.1cm - 4cm) IVSd, 2D 1.25 cm (0.6cm - 1.1cm) LVPWd, 2D 1.21 cm (0.6cm - 0.9cm) LV Mass, 2D ASE 212.39 g LV Mass Index, 2D ASE 96.5 g/m?? (44g/m?? - 88.4g/m??) RWT, MM 0.53 (0 - 0.42) LVSVI, 2D 25 ml/m2 Left Atrium Label Value Normal Value LADs, 2D 3.6 cm (2.7cm - 3.8cm) Mitral Valve Label Value Normal Value MV E Vmax 1.02 m/s MV A Vmax 0.6 m/s MV E/A 1.7 MV E/E' lateral 20.8 MV E' lateral 0.05 m/s Aorta Label Value Normal Value AoRoot, 2D 2.7 cm (1.4cm - 3.8cm) Great Vessels Label Value Normal Value IVC 2.4 cm (1.2cm - 2.3cm) Valvular Assessment LVOT 0.7 - 1.1 m/sec Aortic Valve 1.0 - 1.7 m/sec Mitral Valve 0.6 - 1.3 m/sec Tricuspid Valve 0.3 - 0.7 m/sec Pulmonic Valve 0.6 - 0.9 m/sec Regurgitation No Trivial Trivial Stenosis No No No Max Velocity 1.02 m/sec Findings Left Ventricle: The left ventricle is normal size. Global left ventricular systolic function is normal. EF range is estimated at 60 % -65 %. Left ventricular wall thickness is mildly increased. The septum is abnormal, consistent with RV volume and/or pressure overload. Unable to assess diastolic dysfunction. Left atrial filling pressure is elevated. Right Ventricle: Right ventricle is poorly visualized. The right ventricle appears enlarged. Right ventricular systolic function appears reduced. Unable to assess right sided pressures due to lack of measurable tricuspid regurgitation. Left Atrium: Left atrium is poorly visualized. Right Atrium: Right atrium is poorly visualized. Mitral Valve: There is nonspecific thickening of the mitral valve leaflet. Trivial mitral regurgitation. No mitral valve stenosis. Aortic Valve: The aortic valve is normal. No aortic valve regurgitation. No aortic valve stenosis. The aortic valve is trileaflet. Tricuspid Valve: Normal tricuspid valve. Trivial tricuspid regurgitation. No tricuspid valve stenosis. Pulmonic Valve: Pulmonic valve is poorly visualized. Aorta: The aortic root exhibits normal size. Great Vessels: IVC: The IVC is dilated. There is no inspiratory collapse of the IVC. Pericardium: There is a small pericardial effusion. Procedure Staff Reading Group: [facility] Referring Physician: RAVINDER RODRIGUEZ Blood Bank Laboratory Professional: ERMIAS Mckee Ordering Physician: JAKE BUCKLEY 12 lead Normal sinus rhythm Nonspecific T wave abnormality Abnormal ECG When compared with ECG of 09-NOV-2020 07:35, Nonspecific T wave abnormality now evident in Anterior leads Confirmed by Steve FABIAN, L.S. (2) on 10/07/2024 12:01:23 PM XR chest 1 view Narrative: XR CHEST 1 VIEW 10/07/2024 9:43 AM CLINICAL INDICATIONS: Pneumonia COMPARISON: None FINDINGS: Bilateral pulmonary infiltrates. Small effusions and atelectasis. No pneumothorax. Heart size stable. Impression: Extensive pulmonary infiltrates consistent with edema and/or multifocal pneumonia. Electronically signed: Arthur Shepherd. Assessment Assessment: NSTEMI attributed to supply/demand mismatch in the setting of acute illness and HAGMA presumed DKA,peak HS troponin 56 Mild CAD on cath 2020 Reduced RV systolic function on surface echo in the setting of chronic PETRA with CPAP nonadherence T2DM (9.7%) HTN HLD Obstructive sleep apnea with CPAP nonadherence Plan: Management of acute pathology including community acquired pneumonia per Hospitalist Medicine team. We will facilitate outpatient follow up in our clinic at which time will consider stress testing ifappropriate. No further inpatient intervention/investigation planned from a cardiac perspective. Cardiology willsign off. Please re-consult should new questions/concerns arise. While inpatient, maintain telemetry. Electrolyte correction with target potassium 4.0, magnesium 2.0. Associated attestation - Jake Buckley MD - 10/08/2024 1:19 PM EDT By using the attestations below, the signing clinician agrees that I have read and verify that thedocumentation has been personally reviewed by me and ensure that the documentation accurately reflects the encounter. GC: I personally saw this patient on the day of the encounter, performed the ramos portion(s) of the service and participated in the management and confirm the resident's documentation. Please note there may be an additional personal documentation from me. (Dr. Amaya) * Adenike Pierce - 10/07/2024 11:13 AM EDT Adult Nutrition Assessment: Name: Mary Jane Foy [facility] Date: 1970 Date of Visit: 10/07/24 Admission Dx: NSTEMI (non-ST elevated myocardial infarction) (CMS/HCC) [I21.4] Reason for assessment: high risk (wt and po intake) Information obtained from: patient, medical record, and nursing Past Medical History: Diagnosis Date Abnormal ECG Asthma Diabetes mellitus (CMS/HCC) Hyperlipidemia Current Medications: allopurinol, 300 mg, oral, Daily ascorbic acid, 250 mg, oral, Daily atorvastatin, 80 mg, oral, Nightly cefTRIAXone, 2 g, intravenous, q24h cetirizine, 10 mg, oral, Daily clopidogrel, 75 mg, oral, Daily doxycycline, 100 mg, oral, q12h famotidine, 20 mg, oral, Daily fenofibrate, 160 mg, oral, Nightly ferrous sulfate, 325 mg, oral, Daily with breakfast furosemide, 20 mg, oral, BID lactobacillus acidophilus, 1 capsule, oral, Daily levothyroxine, 175 mcg, oral, Daily before breakfast metoprolol tartrate, 100 mg, oral, BID mometasone-formoterol, 2 puff, inhalation, BID montelukast, 10 mg, oral, Daily Oxygen Therapy, , inhalation, Continuous pantoprazole, 40 mg, oral, BID pregabalin, 100 mg, oral, TID umeclidinium, 1 puff, inhalation, Daily heparin, 0-28 Units/kg/hr, Last Rate: 15 Units/kg/hr (10/07/24 0500) insulin regular in 0.9 % NaCl, 0-60 Units/hr, Last Rate: Stopped (10/07/24 1105) Labs: 0 Lab Value Date/Time POCGLU 428 (H) 10/07/2024 1044 BUN 41 (H) 10/07/2024 0101 CREATININE 1.70 (H) 10/07/2024 0101 NA 136 10/07/2024 0101 K 5.1 10/07/2024 0101 MG 1.8 02/27/2024 0508 HGB 8.4 (L) 10/07/2024 0606 WBC 9.59 10/07/2024 0606 POC B->600 A1c 02/23: 9.7%, pending A1c 10/06 Allergies: Allergies Allergen Reactions Sulfamethoxazole-Trimethoprim Anaphylaxis and Other Atorvastatin Other Myalgias Azithromycin Other Cefprozil Hives and Other Ciprofloxacin Other Keflex [Cephalexin] Other Moxifloxacin Hives and Other Other Other Penicillins Other Percocet [Oxycodone-Acetaminophen] Other Simvastatin Other myalgias Aspirin Other and Rash Doxycycline Rash Pt reports allergy to soy and eggs (can tolerate if baked). Pt reports many other food intolerances. Nutrition Problems: Swallowing Assessment: pt denies difficulties swallowing Mouth: pt denies difficulties chewing Abdominal Assessment: last BM: 10/06 Pt reports nausea, however this has improved slightly since admission Pt reports vomiting that has resolved Pt reports diarrhea that has resolved Appetite: poor Cognition: A/O x4 Nutrition Deficits Prior to Admission: Pt reports decreased intake since 10/02 Feeding Skills: pt is able to shop, cook for, and feed herself, good access to food Skin Integrity: Spider bite R pelvis (closed wound) Edema: BLE +1 Other Factors: 3L O2 Nutrition Data/Clinical Indicators of Nutrition Status: Height: 160 cm (5' 2.99 ) Weight: 123 kg (270 lb 15.1 oz) BMI (Calculated): 48.01 Wt Readings from Last 20 Encounters: 10/07/24 123 kg (270 lb 15.1 oz) 09/28/24 128.6 kg office visit 08/12/24 121 kg office visit 07/07/24 112 kg (246 lb) 04/08/24 124 kg office visit 03/03/24 126.6 ED 02/20/24 126.8 Internal Medicine 12/18/23 126 kg (278 lb) 11/03/23 127 kg (281 lb) 10/23/20 130 kg (287 lb) 09/04/23 147 kg office visit IBW: 52.3 kg UBW: Pt believes she currently weighs 249 lbs (113.2 kg), not consistent with wt records Weight change: Pt states she has lost 50 lbs since December d/t decreased appetite from previous spider bite and hospital visits. Wt records show a 20 kg loss from 09/2023 to 11/2023. Wt records are inconsistent with pt statement of wt loss since December. No recent significant weight changes. % weight change: 5.4% (7 kg) x1 year Severity of weight change: wt loss over 1 year is not clinically significant Nutrition Assessment: Pt reports poor appetite and vomiting since 10/03 and states she had not eaten anything since Friday evening. Pt lives with her mom who she calls when she shops for help with reading nutrition labelsfor allergens. She states that she follows a diabetic diet at home, but has not received diabetic nutrition education in a long time. She reports that she does not count carbohydrates at home, but she does monitor her blood sugars; she states her BG at home is usually in the 100s (non consistent with last A1c of 9.7). She eats 2 meals a day with some snacks and states that she usually does not eat breakfast. She states that she does not drink any protein drinks at home as they make her sick. Drinks: Sugar free edna-aid, sugar free iced tea, diet soda, juice, water, milk L: meat, vegetable, starch D: similar to lunch Snacks: bread, rice, yogurt, fruit cups, sugar free pudding, popcorn Dietary Orders (From admission, onward) Start Ordered 10/06/242137 Diet NPO Diet effective now Comments: Sips with medications Question: Reason for NPO: Answer: Operation/Procedure 10/06/242143 Meal Intakes: NPO Nutrition Risk: Low Nutrition Needs: Needs based on: ideal body weight (52.3 kg) Calorie needs: 7797-1975 kcals/day based on Equation: 25-30 kcal/kg Protein needs: 42-52 g/day based on 0.8-1 g/kg Fluid needs: 1569 ml/day based on 30 ml/kg Nutrition Diagnosis: altered nutrient-related laboratory values related to undesirable food choices as evidenced by POC BG ranging 428->600 and pt diet recall. Malnutrition Assessment: Per Registered Dietitian assessment and evaluation, patient does not currently meet criteria OR there is not enough information to support the diagnosis of malnutrition per the clinical criteria set by the Academy of Nutrition and Dietetics (AND) and the [place] Society of Enteral and Parenteral Nutrition (ASPEN). Nutrition Education: Diet literature: Diabetes Nutrition Therapy (explained and reviewed reading nutrition labels and discussed the importance of regular scheduled meals and snacks). Discussed sources of CHO and encouraged pt to decrease intake of sugary beverages, including juice. Provided Reading Nutrition Labels andCHO Counting handout. Demonstrated label reading and reviewed CHO counting. Expected compliance/patient understanding: good Teach back method: pt verbalized understanding Time spent: 15 minutes Treatment Plan: Diet: Diabetic female and cardiac diet when medically feasible Monitor and encourage intakes with all meals Prevent unintentional wt loss Medically manage BG Monitor results of A1c Asked MD for out patient DM education referral Goals: Adequate po intakes (kcals and protein); >75% meals Understanding of nutrition education/adherence to diet recommendations No significant unintentional wt loss BG control To reach the Clinical Dietitian, please utilize My[employer] chat Friday-Friday from 8AM-4PM or call extension [phone]. For weekends (Friday-Friday) and holidays, the Clinical Dietitian can be reached via pager ([phone]) from 9AM-3PM. The Clinical Nutrition Department is unable to respond to My[employer] chat messages on Sundays and hols. Associated attestation - Erin Umaña RD - 10/07/2024 12:46 PM EDT By using this attestation, the signing clinician agrees that I have read and verify that the documentation has been personally reviewed by me and ensure that the documentation accurately reflects the encounter. Additional Comments: -Poor appetite/intakes r/t acute illness of PNA -Prevent prolonged NPO status -DM education provided and asked MD for referral for outpatient education as well -Small, frequent intakes when diet does advance. Encouraged intakes with all meals - pt dislikes ONS. -Pt reports many food allergies/intolerances. States 2 main ones are eggs and soy. Eggs toleratedwhen baked in other products but not by themselves. Soy causes throat closure. She reports having many other random food intolerances for various reasons - she only wants eggs and soy added to allergens. RD updated allergy list. * Ravinder Rodriguez MD - 10/07/2024 10:14 AM EDT Images from the original note were not included. [facility] Medicine Daily Progress Note - 10/07/2024 10:16 AM; Room: [address] [place] [address] Admission: 10/06/2024 7:39 PM; Length of stay: 1 days THE HOSPITALIST TEAM PREFERS TO USE [employer] FOR NON-URGENT COMMUNICATION 7AM- 7PM. IF I DO NOT RESPOND WITHIN 20 MINUTES OR URGENT MATTERS, PLEASE CALL THROUGH THE CLINICAL PRACTICE CONSULTANT. FROM 7PM-7AM, PLEASE PAGE [phone](COVR). Code Status: Full Code Barriers to Discharge: IV heparin, insulin, ceftriaxone and doxycyline Expected Discharge Date: 10/09/2024 Discharge Destination: home Overview Patient is seen for evaluation and management of right lower lobe pneumonia, NSTEMI, type II diabetes mellitus. [facility] is a 54 y.o female presenting with right lower lobe pneumonia. She states that she has shortness of breath and a productive cough with yellow- colored sputum. She notes that her shortness of breath is present during both exertion and rest. She also stated that she had beating pain around her right lower lobe, and that it improves with oxygen and gets worse with movement. She rates the pain as a 7 or 8 out of 10 without oxygen, and as a 5 or 6 out of 10 with oxygen, with 1 beingvery little pain and 10 being the worst pain she has felt. She states that she had a fever on Friday, but has not had one since, and also denies diaphoresis or chills. She also stated that she discontinued her insulin pump 3 days prior due to decreased appetite. She denies any chest pain in reference to her elevated troponin and BNP. She also stated that this was her 9th time being diagnosed withpneumonia. She is allergic to doxycycline, and when in contact with it, she develops a rash. Physical Exam Visit Vitals BP 137/53 (BP Location: Left arm, Patient Position: Lying) Pulse 81 Temp 37 ??C (98.6 ??F) (Temporal) Resp 24 Intake/Output Summary (Last 24 hours) at 10/07/2024 1016 Last data filed at 10/07/2024 0500 Gross per 24 hour Intake 106.69 ml Output -- Net 106.69 ml Physical Exam Cardiovascular: Rate and Rhythm: Normal rate and regular rhythm. Neurological: Mental Status: She is alert. Pulmonary: Abnormal breath sounds Estimated body mass index is 48.01 kg/m?? as calculated from the following: Height as of this encounter: 1.6 m (5' 2.99 ). Weight as of this encounter: 123 kg (270 lb 15.1 oz). Assessment and Plan Assessment & Plan NSTEMI (non-ST elevated myocardial infarction) ([facility]/HCC) Repeat troponin Continue heparin drip Cardiology consult Pneumonia of right lower lobe due to infectious organism Continue treatment with ceftriaxone and doxycycline, follow-up culture results Add benadryl to use with doxycycline for allergic reaction Obtain chest X-ray Acute on chronic anemia monitor hemoglobin, transfuse for hemoglobin less than 7 Monitor clinically for source of bleeding Acquired hypothyroidism continue levothyroxine Hyperlipidemia reports allergy/intolerance of statins Continue fenofibrate Insulin dependent type 2 diabetes mellitus (CMS/[facility]) uncontrolled with hyperglycemia due to noncompliance of insulin Normally has an insulin pump but she left at home Will start insulin drip to evaluate insulin requirement and then transition to basal/bolus regimen check hemoglobin A1c Class 3 obesity BMI 44.12 Essential hypertension continue oral antihypertensives History of supraventricular tachycardia Chronic kidney disease (CKD), stage III (moderate) (CMS/HCC) baseline unclear, monitor renal function, monitor I's and O's GERD (gastroesophageal reflux disease) continue PPI VTE Prophylaxis: Heparin subcutaneous Scheduled Meds allopurinol, 300 mg, oral, Daily ascorbic acid, 250 mg, oral, Daily atorvastatin, 80 mg, oral, Nightly cefTRIAXone, 2 g, intravenous, q24h cetirizine, 10 mg, oral, Daily clopidogrel, 75 mg, oral, Daily doxycycline, 100 mg, oral, q12h famotidine, 20 mg, oral, Daily fenofibrate, 160 mg, oral, Nightly ferrous sulfate, 325 mg, oral, Daily with breakfast furosemide, 20 mg, oral, BID lactobacillus acidophilus, 1 capsule, oral, Daily levothyroxine, 175 mcg, oral, Daily before breakfast metoprolol tartrate, 100 mg, oral, BID mometasone-formoterol, 2 puff, inhalation, BID montelukast, 10 mg, oral, Daily Oxygen Therapy, , inhalation, Continuous pantoprazole, 40 mg, oral, BID pregabalin, 100 mg, oral, TID umeclidinium, 1 puff, inhalation, Daily heparin, 0-28 Units/kg/hr, Last Rate: 15 Units/kg/hr (10/07/24 0500) insulin regular in 0.9 % NaCl, 0-60 Units/hr, Last Rate: 9.5 Units/hr (10/07/24 0747) Pertinent Investigations Hematology: Results from last 7 days Lab Units 10/07/24 0606 10/06/24 2235 WBC AUTO 10*3/uL 9.59 5.88 HEMOGLOBIN g/dL 8.4* 8.5* HEMATOCRIT % 27.0* 29.0* MCV fL 99.3* 105.8* PLATELETS AUTO 10*3/uL 178 126* Chemistry: Results from last 7 days Lab Units 10/07/24 0101 SODIUM mmol/L 136 POTASSIUM mmol/L 5.1 CHLORIDE mmol/L 102 CO2 mmol/L 9* BUN mg/dL 41* CREATININE mg/dL 1.70* GLUCOSE mg/dL 649* CALCIUM mg/dL 8.6 No lab exists for component: AFIO2 , APHT , APCOT , APOT , ATCO2 , CK , ALB , IBILI Results from last 7 days Lab Units 10/07/24 0941 10/07/24 0847 10/07/24 0634 10/07/24 0534 10/07/24 0436 10/07/24 0334 POCT GLUCOSE mg/dL 470* 476* 555* 523* 589* >600* Historical Values: (Includes values prior to this admission) No results found for: PREALBUMIN , TSH , T3FREE , FREET4 , CORTISOL , FEV1 , UZI9GIO , DLCO , RVSP , HDL , LDL No results found for: [id number] , IRON , TIBC , C3 , C4 , BRITTANY , CANCA , ASO , PSA , CEA , CA125 , CA199 , AFP , CA153 Imaging XR knee 3 views left Narrative: [facility] Department of Radiology [address] [place] [address] Patien t Name: MARY JANE SCHAEFFER : 1970 Sex: F Age: Race: White^White Pt. Location: Patient Status: O Ordered Date: 11/24/2017 11:25:00 AM Completed Date: 11/24/2017 11:28 AM Requesting Provider: RODRIGO ABREU Attending Provider: RODRIGO ABREU Report Copy To: Signs & Symptoms: M25.562 Pain in left knee I10 History: [place] Comments: , Views (X-RAY, KNEE): AP, Lateral, [place] , Weight Bearing?: Y , With Magnification Marker?: N , Views (X-RAY, KNEE): AP, Lateral, [place] , Weight Bearing?: Y , With Magnification Marker?: N , , , Ordering Provider - RODRIGO ABREU MD , Exam: KNEE LEFT 3 VWS PELVIS 1 OR 2 VWS, KNEE LEFT 3 VWS 11/24/2017 11:28 AM EDT SIGNS AND SYMPTOMS: M25.562 Pain in left knee I10 TECHNOLOGIST COMMENTS: Patient complains of left knee pain for years. No known trauma. QUESTION FOR THE RADIOLOGIST: , Views (X-RAY, PELVIS): AP , Weight Bearing?: Y , With Magnification Marker?: Y , Views (X-RAY, PELVIS): AP , Weight Bearing?: Y , With Magnification Marker?: Y , , ...More In Sending System PROTOCOL: AP(PA) view was obtained. (accession [id number]), AP,Lateral and Tangential views were obtained. (accession [id number]) COMPARISON: None FINDINGS: Pelvis: Moderate bilateral hip osteoarthritis with mild peritrochanteric heterotopic ossifications. Left knee: Severe medial weightbearing osteoarthritis with joint effusion and essentially complete joint space loss. Incidental broken needle foreign body along the anterolateral soft tissues of proximal lower leg Impression: 1. Moderate bilateral hip osteoarthritis 2. Severe medial weightbearing knee arthritis Electronically signed by:Elham Bernard. Transcribed by: [email or web address], User Resident: Electronically Signed by: ELHAM BERNARD @ 11/24/2017 12:54 PM XR pelvis 1 or 2 views Narrative: [facility] Department of Radiology [address] [place] [id number] Patien t Name: MAKSIM MARY JANE : 1970 Sex: F Age: Race: White^White Pt. Location: 84 Patient Status: O Ordered Date: 11/24/2017 11:25:00 AM Completed Date: 11/24/2017 11:28 AM Requesting Provider: RODRIGO ABREU Attending Provider: RODRIGO ABREU Report Copy To: Signs & Symptoms: M25.562 Pain in left knee I10 History: [place] Comments: , Views (X-RAY, PELVIS): AP , Weight Bearing?: Y , With Magnification Marker?: Y , Views (X-RAY, PELVIS): AP , Weight Bearing?: Y , With Magnification Marker?: Y , , , Ordering Provider - RODRIGO ABREU MD , Exam: PELVIS 1 OR 2 VWS PELVIS 1 OR 2 VWS, KNEE LEFT 3 VWS 11/24/2017 11:28 AM EDT SIGNS AND SYMPTOMS: M25.562 Pain in left knee I10 TECHNOLOGIST COMMENTS: Patient complains of left knee pain for years. No known trauma. QUESTION FOR THE RADIOLOGIST: , Views (X-RAY, PELVIS): AP , Weight Bearing?: Y , With Magnification Marker?: Y , Views (X-RAY, PELVIS): AP , Weight Bearing?: Y , With Magnification Marker?: Y , , ...More In Sending System PROTOCOL: AP(PA) view was obtained. (accession [id number]), AP,Lateral and Tangential views were obtained. (accession [id number]) COMPARISON: None FINDINGS: Pelvis: Moderate bilateral hip osteoarthritis with mild peritrochanteric heterotopic ossifications. Left knee: Severe medial weightbearing osteoarthritis with joint effusion and essentially complete joint space loss. Incidental broken needle foreign body along the anterolateral soft tissues of proximal lower leg Impression: 1. Moderate bilateral hip osteoarthritis 2. Severe medial weightbearing knee arthritis Electronically signed by:Elham Bernard. Transcribed by: [email or web address], User Resident: Electronically Signed by: ELHAM BERNARD @ 11/24/2017 12:54 PM Discharge Planning Expected Discharge Disposition: Home-Health Care [facility] (06) Signed Imer Sherman, 3rd year medical student [facility] Medicine 10/07/2024 10:16 AM As the teaching physician, I have personally performed or re-performed the history of present illness, physical exam and medical decision-making activities of the encounter and verified the medical student's documentation. I made pertinent changes as necessary to ensure accurate documentation. There may be additional comments below. * Elham Chen - 10/07/2024 9:58 AM EDT discharge planning: to Home with [facility] resuming services PC received from Gisela at [facility]; Patient is reported to be active on their services. [facility] added to AVS and Ru[facility]/bedside nurse notified documented in this encounter H&P Notes * Silver Cain MD - 10/06/2024 10:11 PM EDT Images from the original note were not included. Hospital Medicine History and Physical 10/07/2024 1:19 AM THE HOSPITALIST TEAM PREFERS TO USE My[employer] CHAT FOR NON-URGENT COMMUNICATION 7AM- 7PM. IF I DO NOT RESPOND WITHIN 20 MINUTES OR URGENT MATTERS, PLEASE CALL THROUGH THE CLINICAL PRACTICE CONSULTANT. FROM 7PM-7AM, PLEASE PAGE [phone](COVR). Chief Complaint cough and shortness of breath History of Present Illness Authsudheer Schaeffer is an 54 y.o. female who came from the [facility] with 3-day history of shortness of breath plus cough. Reports having productive cough with brown-colored sputum. Has been having some left-sided chest discomfort during coughing spells but otherwise denies having chest pain or shortness of breath with exertion or at rest prior to recent illness. Denies fever, chills, diaphoresis. Was found to have right lower lobe pneumonia at the ED and started on IV doxycycline. Patient does endorse having allergies to multiple antibiotics. We were able to start her on ceftriaxoneand doxycycline after her transfer here. She was transferred here due to elevated high- sensitivity troponin of 2053.3 concerning for NSTEMI. Patient was started on IV heparin. She also had proBNP of 5000 2049. Hemoglobin at baseline is reported to be around 12 and decreased to 9. Patient denies melena or gross rectal bleeding. Unclear if Hemoccult was done at the outside hospital and patient is currently declining. She was also found to have elevated blood glucose of 498 on her lab workup. Reports that she stopped using her insulin pump for 3 days after she got sick due to decreased appetite.Blood glucose levels have been high when she checks at home. Review of System and Physical Exam Temp: [36.6 ??C (97.9 ??F)] 36.6 ??C (97.9 ??F) Heart Rate: [93] 93 Resp: [24] 24 BP: (136)/(56) 136/56 Physical Exam Vitals reviewed. Constitutional: General: She is not in acute distress. Appearance: She is obese. She is ill-appearing. She is not toxic-appearing or diaphoretic. HENT: Head: Normocephalic and atraumatic. Right Ear: External ear normal. Left Ear: External ear normal. Nose: Nose normal. Mouth/Throat: Mouth: Mucous membranes are moist. Pharynx: Oropharynx is clear. Eyes: Extraocular Movements: Extraocular movements intact. Conjunctiva/sclera: Conjunctivae normal. Pupils: Pupils are equal, round, and reactive to light. Cardiovascular: Rate and Rhythm: Normal rate and regular rhythm. Pulses: Normal pulses. Heart sounds: Normal heart sounds. Pulmonary: Effort: Pulmonary effort is normal. Breath sounds: Rhonchi and rales present. No wheezing. Abdominal: General: Abdomen is flat. Bowel sounds are normal. Palpations: Abdomen is soft. Tenderness: There is no abdominal tenderness. There is no guarding or rebound. Hernia: No hernia is present. Musculoskeletal: Cervical back: Normal range of motion and neck supple. Right lower leg: Edema present. Left lower leg: Edema present. Skin: General: Skin is warm and dry. Capillary Refill: Capillary refill takes less than 2 seconds. Findings: No lesion or rash. Neurological: General: No focal deficit present. Mental Status: She is alert and oriented to person, place, and time. Mental status is at baseline. Psychiatric: Mood and Affect: Mood normal. Behavior: Behavior normal. Review of Systems Constitutional: Positive for activity change, appetite change and fatigue. Negative for chills, diaphoresis and fever. HENT: Negative. Eyes: Negative. Respiratory: Positive for cough and shortness of breath. Negative for wheezing. Cardiovascular: Negative. Gastrointestinal: Negative. Endocrine: Negative. Genitourinary: Negative. Musculoskeletal: Negative. Skin: Negative. Allergic/Immunologic: Negative. Neurological: Negative. Hematological: Negative. Psychiatric/Behavioral: Negative. All other systems reviewed and are negative. Assessment and Plan Assessment & Plan NSTEMI (non-ST elevated myocardial infarction) ([facility]) monitor on telemetry, trend cardiac enzymes Continue heparin drip Cardiology consult Pneumonia of right lower lobe due to infectious organism Will empirically treat with ceftriaxone and doxycycline, follow-up culture results Acute on chronic anemia monitor hemoglobin, transfuse for hemoglobin less than 7 Monitor clinically for source of bleeding Acquired hypothyroidism continue levothyroxine Hyperlipidemia reports allergy/intolerance of statins Continue fenofibrate Insulin dependent type 2 diabetes mellitus ([facility]) uncontrolled with hyperglycemia due to noncompliance of insulin Normally has an insulin pump but she left at home Will start insulin drip to evaluate insulin requirement and then transition to basal/bolus regimen check hemoglobin A1c Class 3 obesity BMI 44.12 Essential hypertension continue oral antihypertensives History of supraventricular tachycardia Chronic kidney disease (CKD), stage III (moderate) ([facility]) baseline unclear, monitor renal function, monitor I's and O's GERD (gastroesophageal reflux disease) continue PPI VTE Prophylaxis: Heparin subcutaneous ----- Focus of this inpatient stay will remain on problems that need acute care setting for care. We will review available studies and will order additional labs, imaging and other studies as appropriate. As needed medicines are ordered as appropriate. VTE Prophylaxis will be ordered as appropriate. Please see above for management plan for individual hospital problems. Home medications are reviewed and will be continued as appropriate. Patient will be continued to be followed during this hospital stay by a member of [facility] Hospital Medicine. Past Medical History Past Medical History: Diagnosis Date Abnormal ECG Asthma Diabetes mellitus ([facility]) Hyperlipidemia Past Surgical History Past Surgical History: Procedure Laterality Date CARDIAC CATHETERIZATION Social History Social History Socioeconomic History Marital status: Spouse name: Not on file Number of children: Not on file Years of education: Not on file Highest education level: Not on file Occupational History Not on file Tobacco Use Smoking status: Never Smokeless tobacco: Never Substance and Sexual Activity Alcohol use: Never Drug use: Not on file Sexual activity: Not on file Other Topics Concern Not on file Social History Narrative Not on file Social Determinants of Health Financial Resource Strain: Low Risk (10/06/2024) Overall Financial Resource Strain (CARDIA) Difficulty of Paying Living Expenses: Not very hard Food Insecurity: No Food Insecurity (10/06/2024) Hunger Vital Sign Worried About Running Out of Food in the Last Year: Never true Ran Out of Food in the Last Year: Not on file Transportation Needs: No Transportation Needs (10/06/2024) Transportation Lack of Transportation (Medical): No Lack of Transportation (Non-Medical): Not on file Physical Activity: Not on file Stress: Not on file Social Connections: Not on file Intimate Partner Violence: Unknown (10/06/2024) Humiliation, Afraid, Rape, and Kick questionnaire Fear of Current or Ex-Partner: No Emotionally Abused: Not on file Physically Abused: Not on file Sexually Abused: Not on file Housing Stability: High Risk (10/06/2024) Housing Stability Vital Sign Unable to Pay for Housing in the Last Year: Not on file Number of Times Moved in the Last Year: Not on file Homeless in the Last Year: Yes Family History family history includes Angina in her mother; Heart attack in her maternal grandfather and mother. Allergies is allergic to sulfamethoxazole-trimethoprim, atorvastatin, azithromycin, cefprozil, ciprofloxacin,keflex [cephalexin], moxifloxacin, other, penicillins, percocet [oxycodone-acetaminophen], simvastatin, aspirin, and doxycycline. Prior to Admission Medications Medications Prior to Admission Medication Sig Dispense Refill Last Dose albuterol 90 mcg/actuation inhaler INHALE 2 PUFFS EVERY 4 HOURS NEEDED FOR SHORTNESS OF BREATH allopurinol (Zyloprim) 300 mg tablet Take 1 tablet by mouth in the morning. ascorbic acid (Vitamin C) 250 MG chewable tablet Chew 250 mg in the morning. bempedoic acid 180 mg tablet Take 180 mg by mouth once daily as directed. (Patient not taking: Reported on 07/07/2024) 30 tablet 3 biotin 5,000 mcg tablet,disintegrating Take 10,000 mcg by mouth in the morning. budesonide-formoteroL (Symbicort) 160-4.5 mcg/actuation inhaler Inhale 2 puffs twice a day by inhalation route. clopidogrel (Plavix) 75 mg tablet TAKE 1 TABLET (75 MG) BY MOUTH IN THE MORNING 90 tablet 3 Dupixent Pen 300 mg/2 mL pen injector evolocumab (Repatha SureClick) 140 mg/mL pen injector Inject 140 mg under the skin every 14 (fourteen) days. (Patient not taking: Reported on 07/07/2024) 6 mL 3 evolocumab (Repatha SureClick) 140 mg/mL pen injector Inject 140 mg under the skin every 14 (fourteen) days. 6 mL 3 famotidine (Pepcid) 20 mg tablet 1 (one) time each day at the same time. fenofibrate (Lofibra) 160 mg tablet Take 1 tablet by mouth at bedtime. ferrous sulfate 325 (65 Fe) MG tablet Take 325 mg by mouth. fexofenadine (Chacha) 180 mg tablet Take 180 mg by mouth in the morning. fluticasone (Flonase) 50 mcg/actuation nasal spray Administer 1 spray into each nostril if needed each day for rhinitis. Shake gently. Before first use, prime pump. After use, clean tip and replace cap. furosemide (Lasix) 20 mg tablet Take 20 mg by mouth in the morning and at bedtime. HumuLIN R U-500, Conc, Insulin 500 unit/mL CONCENTRATED injection USE WITH INSULIN PUMP (EXPECT UP TO 200 UNITS TOTAL DAILY Lactobacillus acidophilus 100 mg (1 billion cell) capsule Take 100 mg by mouth in the morning. levothyroxine (Synthroid, Levoxyl) 175 mcg tablet TAKE ONE TABLET BY MOUTH IN THE MORNING DAILY ON AN EMPTY STOMACH, WAIT 30 MIN BEFORE EATING OR DRINKING lisinopril 10 mg tablet Take 1 tablet (10 mg) by mouth in the morning. 90 tablet 3 Lyrica 100 mg capsule Take 100 mg by mouth three times daily. meclizine (Antivert) 25 mg tablet Take 25 mg by mouth if needed in the morning and at bedtime for dizziness. metoprolol tartrate (Lopressor) 100 mg tablet Take 1 tablet (100 mg) by mouth two times daily. 180 tablet 3 metoprolol tartrate (Lopressor) 50 mg tablet Take 1 tablet by mouth in the morning and at bedtime. metoprolol tartrate 75 mg tablet Take 1 tablet (75 mg) by mouth in the morning and at bedtime. 180 tablet 3 montelukast (Singulair) 10 mg tablet Take 10 mg by mouth in the morning. pantoprazole (ProtoNix) 40 mg EC tablet Take 1 tablet by mouth in the morning and at bedtime. rosuvastatin (Crestor) 20 mg tablet Take 1 tablet (20 mg) by mouth at bedtime. (Patient not taking:Reported on 07/07/2024) 90 tablet 3 tiotropium (Spiriva Respimat) 1.25 mcg/actuation inhaler INHALE 2 PUFFS DAILY Trulicity 4.5 mg/0.5 mL pen injector Inject 4.5 mg under the skin every 7 (seven) days. Labs Labs Reviewed CBC WITH AUTO DIFFERENTIAL - Abnormal Result Value Auto WBC 5.88 RBC 2.74 (*) Hemoglobin 8.5 (*) Hematocrit 29.0 (*) MCV 105.8 (*) MCH 31.0 MCHC 29.3 (*) RDW 15.0 Neutrophils % 86.9 (*) Lymphocytes % 10.5 (*) Monocytes % 1.4 (*) Eosinophils % 0.0 Basophils % 0.2 Neutrophils Absolute 5.11 Lymphocytes Absolute 0.62 (*) Monocytes Absolute 0.08 (*) Eosinophils Absolute 0.00 Basophils Absolute 0.01 Platelets 126 (*) nRBC % 0.0 Immature Granulocytes % 1.0 Immature Granulocytes Absolute 0.06 LACTIC ACID WITH 4 HOUR REFLEX - Normal Lactate 1.2 BLOOD CULTURE BLOOD CULTURE CBC AND DIFFERENTIAL Narrative: The following orders were created for panel order CBC and differential. Procedure Abnormality Status --------- ------ CBC auto differential[[id number]] Abnormal Final result Please view results for these tests on the individual orders. BASIC METABOLIC PANEL HIGH SENSITIVITY TROPONIN I LACTIC ACID WITH 4 HOUR REFLEX BASIC METABOLIC PANEL APTT ANTI-XA (HEPARIN LEVEL) POCT GLUCOSE METER POCT GLUCOSE METER POCT GLUCOSE METER Imaging XR knee 3 views left Narrative: [facility] Department of Radiology [address] [place] [address] Willow ruiz Name: MARY JANE SCHAEFFER : 1970 Sex: F Age: Race: White^White Pt. Location: 84 Patient Status: O Ordered Date: 11/24/2017 11:25:00 AM Completed Date: 11/24/2017 11:28 AM Requesting Provider: RODRIGO ABREU Attending Provider: RODRIGO ABREU Report Copy To: Signs & Symptoms: M25.562 Pain in left knee I10 History: [place] Comments: , Views (X-RAY, KNEE): AP, Lateral, [place] , Weight Bearing?: Y , With Magnification Marker?: N , Views (X-RAY, KNEE): AP, Lateral, [place] , Weight Bearing?: Y , With Magnification Marker?: N , , , Ordering Provider - RODRIGO ABREU MD , Exam: KNEE LEFT 3 VWS PELVIS 1 OR 2 VWS, KNEE LEFT 3 VWS 11/24/2017 11:28 AM EDT SIGNS AND SYMPTOMS: M25.562 Pain in left knee I10 TECHNOLOGIST COMMENTS: Patient complains of left knee pain for years. No known trauma. QUESTION FOR THE RADIOLOGIST: , Views (X-RAY, PELVIS): AP , Weight Bearing?: Y , With Magnification Marker?: Y , Views (X-RAY, PELVIS): AP , Weight Bearing?: Y , With Magnification Marker?: Y , , ...More In Sending System PROTOCOL: AP(PA) view was obtained. (accession [id number]), AP,Lateral and Tangential views were obtained. (accession [id number]) COMPARISON: None FINDINGS: Pelvis: Moderate bilateral hip osteoarthritis with mild peritrochanteric heterotopic ossifications. Left knee: Severe medial weightbearing osteoarthritis with joint effusion and essentially complete joint space loss. Incidental broken needle foreign body along the anterolateral soft tissues of proximal lower leg Impression: 1. Moderate bilateral hip osteoarthritis 2. Severe medial weightbearing knee arthritis Electronically signed by:Elham Bernard. Transcribed by: [email or web address], User Resident: Electronically Signed by: ELHAM BERNARD @ 11/24/2017 12:54 PM XR pelvis 1 or 2 views Narrative: [facility] Department of Radiology [address] [place] [id number] Patien t Name: MARY JANE SCHAEFFER : 1970 Sex: F Age: Race: White^White Pt. Location: 84 Patient Status: O Ordered Date: 11/24/2017 11:25:00 AM Completed Date: 11/24/2017 11:28 AM Requesting Provider: RODRIGO ABREU Attending Provider: RODRIGO ABREU Report Copy To: Signs & Symptoms: M25.562 Pain in left knee I10 History: [place] Comments: , Views (X-RAY, PELVIS): AP , Weight Bearing?: Y , With Magnification Marker?: Y , Views (X-RAY, PELVIS): AP , Weight Bearing?: Y , With Magnification Marker?: Y , , , Ordering Provider - RODRIGO ABREU MD , Exam: PELVIS 1 OR 2 VWS PELVIS 1 OR 2 VWS, KNEE LEFT 3 VWS 11/24/2017 11:28 AM EDT SIGNS AND SYMPTOMS: M25.562 Pain in left knee I10 TECHNOLOGIST COMMENTS: Patient complains of left knee pain for years. No known trauma. QUESTION FOR THE RADIOLOGIST: , Views (X-RAY, PELVIS): AP , Weight Bearing?: Y , With Magnification Marker?: Y , Views (X-RAY, PELVIS): AP , Weight Bearing?: Y , With Magnification Marker?: Y , , ...More In Sending System PROTOCOL: AP(PA) view was obtained. (accession [id number]), AP,Lateral and Tangential views were obtained. (accession [id number]) COMPARISON: None FINDINGS: Pelvis: Moderate bilateral hip osteoarthritis with mild peritrochanteric heterotopic ossifications. Left knee: Severe medial weightbearing osteoarthritis with joint effusion and essentially complete joint space loss. Incidental broken needle foreign body along the anterolateral soft tissues of proximal lower leg Impression: 1. Moderate bilateral hip osteoarthritis 2. Severe medial weightbearing knee arthritis Electronically signed by:Elham Bernard. Transcribed by: [email or web address], User Resident: Electronically Signed by: ELHAM BERNARD @ 11/24/2017 12:54 PM Signed Silver Cain MD [facility] Medicine 10/07/2024 1:19 AM documented in this encounter Consult Notes * Shivam Amaya - 10/07/2024 9:27 AM EDTAssociated Order(s): IP CONSULT TO CARDIOLOGY Images from the original note were not included. Cardiology Consult Note Reason for Consult: concern for NSTEMI HPI: Mary Jane Schaeffer is a 54 y.o. female with medical history notable for mild CAD (cath 2020), T2DM(9.7%), HTN, HLD. History obtained from patient. Mary Jane Schaeffer presented with three days of cough productive of rust colored sputum. She is currently being treated for community acquired pneumonia and diabetic ketoacidosis. She was last seen by Cardiology in July at which time her metoprolol tartrate was increased to 100mg q12hrs and she was started on Repatha for lipid management. On evaluation this admission, Ms Schaeffer denies chest pain, palpitations, worsening dyspnea. Her primary complaints are productive cough and chills. Notable labs include HS trop 56 trended to 53. ECG dem onstrated sinus rhythm. Cardiology was consulted for evaluation of NSTEMI concern. Active outpatient cardiac medications: Clopidogrel, evolocumab, fenofibrate, furosemide, lisinopril, metoprolol tartrate, rosuvastatin. Family history of cardiac pathology: None reported. Tobacco/alcohol/substance history: Denies. Occupation: Retired [employer] employee. 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 Last surface echo: EF 60-65%, reduced RV systolic function. Last coronary angiography: 2020, mild CAD. ROS: Ten point review of systems negative except as noted above. Past Medical History She has a past medical history of Abnormal ECG, Asthma, Diabetes mellitus ([facility]), and Hyperlipidemia. Surgical History She has a [...] Grandfather Allergies Sulfamethoxazole-trimethoprim, Atorvastatin, Azithromycin, Cefprozil, Ciprofloxacin, Egg, Keflex [cephalexin], Moxifloxacin, Other, Penicillins, Percocet [oxycodone-acetaminophen], Simvastatin, Soy, Aspirin, and Doxycycline Medications Current Outpatient Medications Medication Instructions albuterol 90 mcg/actuation inhaler INHALE 2 PUFFS EVERY 4 HOURS NEEDED FOR SHORTNESS OF BREATH allopurinol (Zyloprim) 300 mg tablet 1 tablet, oral, Daily ascorbic acid (VITAMIN C) 250 mg, oral, Daily bempedoic acid 180 mg, oral, Once Daily biotin 10,000 mcg, oral, Daily budesonide-formoteroL (Symbicort) 160-4.5 mcg/actuation inhaler Inhale 2 puffs twice a day by inhalation route. clopidogrel (PLAVIX) 75 mg, oral, Daily Dupixent Pen 300 mg/2 mL pen injector famotidine (Pepcid) 20 mg tablet Every 24 hours fenofibrate (Lofibra) 160 mg tablet 1 tablet, oral, Nightly ferrous sulfate 325 mg, oral fexofenadine (CHACHA) 180 mg, oral, Daily RT fluticasone (Flonase) 50 mcg/actuation nasal spray 1 spray, Each Nostril, Daily PRN, Shake gently. Before first use, prime pump. After use, clean tip and replace cap. furosemide (LASIX) 20 mg, oral, 2 times daily HumuLIN R U-500, Conc, Insulin 500 unit/mL CONCENTRATED injection USE WITH INSULIN PUMP (EXPECT UP TO 200 UNITS TOTAL DAILY Lactobacillus acidophilus 100 mg, oral, Daily levothyroxine (Synthroid, Levoxyl) 175 mcg tablet TAKE ONE TABLET BY MOUTH IN THE MORNING DAILY ON AN EMPTY STOMACH, WAIT 30 MIN BEFORE EATING OR DRINKING lisinopril 10 mg, oral, Daily Lyrica 100 mg, oral, 3 times daily meclizine (ANTIVERT) 25 mg, oral, 2 times daily PRN metoprolol tartrate (Lopressor) 50 mg tablet 1 tablet, oral, 2 times daily RT metoprolol tartrate (LOPRESSOR) 100 mg, oral, 2 times daily metoprolol tartrate 75 mg, oral, 2 times daily montelukast (SINGULAIR) 10 mg, oral, Daily pantoprazole (ProtoNix) 40 mg EC tablet 1 tablet, oral, 2 times daily RT Repatha SureClick 140 mg, subcutaneous, Every 14 days Repatha SureClick 140 mg, subcutaneous, Every 14 days rosuvastatin (CRESTOR) 20 mg, oral, Nightly tiotropium (Spiriva Respimat) 1.25 mcg/actuation inhaler INHALE 2 PUFFS DAILY Trulicity 4.5 mg, subcutaneous, Every 7 days Medications Prior to Admission Medication Sig Dispense Refill Last Dose albuterol 90 mcg/actuation inhaler INHALE 2 PUFFS EVERY 4 HOURS NEEDED FOR SHORTNESS OF BREATH allopurinol (Zyloprim) 300 mg tablet Take 1 tablet by mouth in the morning. ascorbic acid (Vitamin C) 250 MG chewable tablet Chew 250 mg in the morning. bempedoic acid 180 mg tablet Take 180 mg by mouth once daily as directed. (Patient not taking: Reported on 07/07/2024) 30 tablet 3 biotin 5,000 mcg tablet,disintegrating Take 10,000 mcg by mouth in the morning. budesonide-formoteroL (Symbicort) 160-4.5 mcg/actuation inhaler Inhale 2 puffs twice a day by inhalation route. clopidogrel (Plavix) 75 mg tablet TAKE 1 TABLET (75 MG) BY MOUTH IN THE MORNING 90 tablet 3 Dupixent Pen 300 mg/2 mL pen injector evolocumab (Repatha SureClick) 140 mg/mL pen injector Inject 140 mg under the skin every 14 (fourteen) days. (Patient not taking: Reported on 07/07/2024) 6 mL 3 evolocumab (Repatha SureClick) 140 mg/mL pen injector Inject 140 mg under the skin every 14 (fourteen) days. 6 mL 3 famotidine (Pepcid) 20 mg tablet 1 (one) time each day at the same time. fenofibrate (Lofibra) 160 mg tablet Take 1 tablet by mouth at bedtime. ferrous sulfate 325 (65 Fe) MG tablet Take 325 mg by mouth. fexofenadine (Chacha) 180 mg tablet Take 180 mg by mouth in the morning. fluticasone (Flonase) 50 mcg/actuation nasal spray Administer 1 spray into each nostril if needed each day for rhinitis. Shake gently. Before first use, prime pump. After use, clean tip and replace cap. furosemide (Lasix) 20 mg tablet Take 20 mg by mouth in the morning and at bedtime. HumuLIN R U-500, Conc, Insulin 500 unit/mL CONCENTRATED injection USE WITH INSULIN PUMP (EXPECT UP TO 200 UNITS TOTAL DAILY Lactobacillus acidophilus 100 mg (1 billion cell) capsule Take 100 mg by mouth in the morning. levothyroxine (Synthroid, Levoxyl) 175 mcg tablet TAKE ONE TABLET BY MOUTH IN THE MORNING DAILY ON AN EMPTY STOMACH, WAIT 30 MIN BEFORE EATING OR DRINKING lisinopril 10 mg tablet Take 1 tablet (10 mg) by mouth in the morning. 90 tablet 3 Lyrica 100 mg capsule Take 100 mg by mouth three times daily. meclizine (Antivert) 25 mg tablet Take 25 mg by mouth if needed in the morning and at bedtime for dizziness. metoprolol tartrate (Lopressor) 100 mg tablet Take 1 tablet (100 mg) by mouth two times daily. 180 tablet 3 metoprolol tartrate (Lopressor) 50 mg tablet Take 1 tablet by mouth in the morning and at bedtime. metoprolol tartrate 75 mg tablet Take 1 tablet (75 mg) by mouth in the morning and at bedtime. 180 tablet 3 montelukast (Singulair) 10 mg tablet Take 10 mg by mouth in the morning. pantoprazole (ProtoNix) 40 mg EC tablet Take 1 tablet by mouth in the morning and at bedtime. rosuvastatin (Crestor) 20 mg tablet Take 1 tablet (20 mg) by mouth at bedtime. (Patient not taking:Reported on 07/07/2024) 90 tablet 3 tiotropium (Spiriva Respimat) 1.25 mcg/actuation inhaler INHALE 2 PUFFS DAILY Trulicity 4.5 mg/0.5 mL pen injector Inject 4.5 mg under the skin every 7 (seven) days. Current Facility-Administered Medications Medication Dose Route Frequency Provider Last Rate Last Admin acetaminophen (Tylenol) tablet 650 mg 650 mg oral q6h PRN Silver Cain MD albuterol 90 mcg/actuation inhaler 2 puff 2 puff inhalation q4h PRN Silver Cain MD allopurinol (Zyloprim) tablet 300 mg 300 mg oral Daily Silver Cain MD ascorbic acid (Vitamin C) tablet 250 mg 250 mg oral Daily Silver Cain MD atorvastatin (Lipitor) tablet 80 mg 80 mg oral Nightly Silver Cain MD benzonatate (Tessalon) capsule 100 mg 100 mg oral TID PRN Silver Cain MD cefTRIAXone (Rocephin) IVPB 2 g in NS 50 mL (Mini-Bag Plus) 2 g intravenous q24h Silver Cain MD Stopped at 10/06/24 2236 cetirizine (ZyrTEC) tablet 10 mg 10 mg oral Daily Silver Cain MD 10 mg at 10/07/24 0857 clopidogrel (Plavix) tablet 75 mg 75 mg oral Daily Silver Cain MD 75 mg at 10/07/24 1045 dextrose 50 % in water (D50W) syringe 25 mL 25 mL intravenous PRN Silver Cain MD dextrose 50 % in water (D50W) syringe 50 mL 50 mL intravenous PRN Silver Cain MD diphenhydrAMINE (BENADryl) capsule 25 mg 25 mg oral BID PRN Ravinder Rodriguez MD 25 mg at 10/07/24 0938 doxycycline (Vibramycin) capsule 100 mg 100 mg oral q12h Silver MD Ant 100 mg at 10/07/24 1045 famotidine (Pepcid) tablet 20 mg 20 mg oral Daily Silver MD Ant 20 mg at 10/07/24 0856 fenofibrate (Lofibra) tablet 160 mg 160 mg oral Nightly Silver MD Ant 160 mg at 10/07/24 0113 ferrous sulfate tablet 325 mg 325 mg oral Daily with breakfast Silver MD Ant furosemide (Lasix) tablet 20 mg 20 mg oral BID Silver MD Ant 20 mg at 10/07/24 1045 heparin infusion 100 units/mL in D5W 0-28 Units/kg/hr intravenous Continuous Silver MD Ant 17 mL/hr at 10/07/24 0500 15 Units/kg/hr at 10/07/24 0500 insulin regular in 0.9 % NaCl 100 unit/100 mL (1 unit/mL) solution 0-60 Units/hr intravenous Continuous Silver MD Ant 9.5 mL/hr at 10/07/24 1302 9.5 Units/hr at 10/07/24 1302 lactobacillus acidophilus 500 million cell 1 capsule 1 capsule oral Daily Silver MD Ant levothyroxine (Synthroid, Levoxyl) tablet 175 mcg 175 mcg oral Daily before breakfast Silver MD Ant 175 mcg at 10/07/24 0647 meclizine (Antivert) tablet 25 mg 25 mg oral BID PRN Silver Cain MD melatonin tablet 5 mg 5 mg oral Nightly PRN Silver Cain MD metoprolol tartrate (Lopressor) tablet 100 mg 100 mg oral BID Silver MD Ant 100 mg at 10/07/24 0857 mometasone-formoterol (Dulera 100) 100-5 mcg/actuation inhaler 2 puff 2 puff inhalation BID Silver Cain MD 2 puff at 10/07/24 0856 montelukast (Singulair) tablet 10 mg 10 mg oral Daily Silver MD Ant 10 mg at 10/07/24 0857 nitroglycerin (Nitrostat) SL tablet 0.4 mg 0.4 mg sublingual q5 min PRN Silver Cain MD Oxygen Therapy inhalation Continuous Silver Cain MD Oxygen On at 10/06/24 2145 pantoprazole (ProtoNix) EC tablet 40 mg 40 mg oral BID Silver Cain MD 40 mg at 10/07/24 0857 pregabalin (Lyrica) capsule 100 mg 100 mg oral TID Silver Cain MD 100 mg at 10/07/24 1045 umeclidinium (Incruse Ellipta) 62.5 mcg/actuation inhalation 62.5 mcg 1 puff inhalation Daily Silver Cain MD 62.5 mcg at 10/07/24 0856 Last Recorded Vitals Patient Vitals for the past 24 hrs: BP Temp Temp src Pulse Resp SpO2 Height Weight 10/07/24 0700 -- 37 ??C (98.6 ??F) Temporal -- -- -- -- -- 10/07/24 0447 -- -- -- -- -- -- -- 123 kg (270 lb 15.1 oz) 10/07/24 0420 137/53 36.6 ??C (97.9 ??F) Temporal 81 24 93 % -- -- 10/07/24 0000 138/51 36.6 ??C (97.9 ??F) Temporal 93 (!) 31 94 % -- -- 10/06/24 2000 136/56 36.6 ??C (97.9 ??F) Temporal 93 24 97 % 1.6 m (5' 2.99 ) 113 kg (249 lb) Physical Examination: GENERAL: AOx3, in no acute distress. HEAD: Atraumatic, normocephalic. EYES: PERRLA, EOMI. NECK: No JVD present. CARDIAC: RRR. No murmur, rubs, or gallops. RESPIRATORY: CTAB, no increased work of breathing. ABDOMEN: Soft, nontender, nondistended. EXTREMITIES: Trace lower extremity edema, peripheral pulses are 2+ bilaterally. NEURO: No focal deficits Relevant Testing Results Encounter Date: 10/06/24 ECG 12 lead Result Value Ventricular Rate 78 Atrial Rate 78 NE Interval 138 QRS DURATION 88 QT Interval 398 QTC CALCULATION(BAZETT) 453 P [place] 62 R-[place] 83 T Wave [place] 42 Impression Normal sinus rhythm Nonspecific T wave abnormality Abnormal ECG When compared with ECG of 09-NOV-2020 07:35, Nonspecific T wave abnormality now evident in Anterior leads Confirmed by Steve FABIAN, L.S. (2) on 10/07/2024 12:01:23 PM No results found for: CKTOTAL , CKMB , CKMBINDEX , TROPONINI Complete Echo (TTE) w/wo Imaging Agent, Strain, 3D, Bubble Study Result Date: 10/07/2024 1 1 [facility] [address] [place] [address] [phone] (fax) Echocardiogram-[facility] Name: MARY JANE SCHAEFFER Study Date: 10/07/2024 02:33 PM B/P: 137 mmHg/53 mmHg HR: 77 bpm Date of : 1970 Location: [facility] Height: 63 in. Age: 54 year(s) Patient Room: 3120 Weight: 270 lb. Gender: Female Patient Status: InPt BSA: 2.2 m2 Indication: Angina, Shortness of Breath, elevated troponin Apical images are off-axis Examination: Echocardiogram (Complete), Lumason Contrast Image Quality: Poor sound transmission in apical views Patient Consent: Procedure explained to patient Exam Details Contrast: I.V. doseof Lumason Conclusions Left Ventricle: The left ventricle is normal size. Global left ventricular systolic function is normal. EF range is estimated at 60 % -65 %. Left ventricular wall thickness is mildly increased. The septum is abnormal, consistent with RV volume and/or pressure overload. Unableto assess diastolic dysfunction. Right Ventricle: The right ventricle appears enlarged. Right ventricular systolic function appears reduced. Unable to assess right sided pressures due to lack of measurable tricuspid regurgitation. Left Atrium: Left atrium is poorly visualized. Right Atrium: Right atrium is poorly visualized. Pericardium: There is a small pericardial effusion. Overall Conclusions:Due to suboptimal imaging Lumason contrast was administered for opacification and better delineation of endocardial borders. No significant valvular abnormalities Measurements Left Ventricle Label Value Normal Value LVOTd 1.9 cm (18cm - 20cm) LVDd, 2D 4.6 cm (3.9cm - 5.3cm) LVDs, 2D 3.23 cm (2.1cm - 4cm) IVSd, 2D 1.25 cm (0.6cm - 1.1cm) LVPWd, 2D 1.21 cm (0.6cm - 0.9cm) LV Mass, 2D ASE 212.39 g LV Mass Index, 2D ASE 96.5 g/m?? (44g/m?? - 88.4g/m??) RWT, MM 0.53 (0 - 0.42) LVSVI, 2D 25 ml/m2 Left Atrium Label Value Normal Value LADs, 2D 3.6 cm (2.7cm - 3.8cm) Mitral Valve Label Value Normal Value MV E Vmax 1.02 m/s MV A Vmax 0.6 m/s MV E/A 1.7 MV E/E' lateral 20.8 MV E' lateral 0.05 m/s Aorta Label Value Normal Value AoRoot, 2D 2.7 cm (1.4cm - 3.8cm) Great Vessels Label Value Normal Value IVC 2.4 cm (1.2cm - 2.3cm) Valvular Assessment LVOT 0.7 - 1.1 m/sec Aortic Valve 1.0 - 1.7 m/sec Mitral Valve 0.6 - 1.3 m/sec Tricuspid Valve 0.3 - 0.7 m/sec Pulmonic Valve 0.6 - 0.9 m/sec Regurgitation No Trivial Trivial Stenosis No No No Max Velocity 1.02 m/sec Findings Left Ventricle: The left ventricle is normal size. Global left ventricular systolic function is normal. EF range is estimated at 60 % -65 %. Left ventricular wall thickness is mildly increased. The septum is abnormal, consistent with RV volume and/or pressure overload. Unable to assess diastolic dysfunction. Left atrial filling pressure is elevated. Right Ventricle: Right ventricle is poorly visualized. The right ventricle appears enlarged. Right ventricular systolic function appears reduced. Unable to assess right sided pressures due to lack of measurable tricuspid regurgitation. Left Atrium: Left atrium is poorly visua lized. Right Atrium: Right atrium is poorly visualized. Mitral Valve: There is nonspecific thickening of the mitral valve leaflet. Trivial mitral regurgitation. No mitral valve stenosis. Aortic Valve: The aortic valve is normal. No aortic valve regurgitation. No aortic valve stenosis. The aortic [place] ve is trileaflet. Tricuspid Valve: Normal tricuspid valve. Trivial tricuspid regurgitation. No tricuspid valve stenosis. Pulmonic Valve: Pulmonic valve is poorly visualized. Aorta: The aortic root exhibits normal size. Great Vessels: IVC: The IVC is dilated. There is no inspiratory collapse of the IVC. Pericardium: There is a small pericardial effusion. Procedure Staff Reading Group: [facility] Referring Physician: RAVINDER RODRIGUEZ Blood Bank Laboratory Professional: ERMIAS Mckee Ordering Physician: JAKE BUCKLEY No nuclear medicine results found for the past 12 months Relevant Imaging Results Complete Echo (TTE) w/wo Imaging Agent, Strain, 3D, Bubble Study 1 1 [facility] Heart [facility] [address] [place] [address] [phone] (fax) Echocardiogram-[facility] Name: MARY JANE SANTOS Study Date: 10/07/2024 02:33 PM B/P: 137 mmHg/53 mmHg HR: 77 bpm Date of : 1970 Location: [facility] Height: 63 in. Age: 54 year(s) Patient Room: 3120 Weight: 270 lb. Gender: Female Patient Status: InPt BSA: 2.2 m2 Indication: Angina, Shortness of Breath, elevated troponin Apical images are off-axis Examination: Echocardiogram (Complete), Lumason Contrast Image Quality: Poor sound transmission in apical views Patient Consent: Procedure explained to patient Exam Details Contrast: I.V. dose of Lumason Conclusions Left Ventricle: The left ventricle is normal size. Global left ventricular systolic function is normal. EF range is estimated at 60 % -65 %. Left ventricular wall thickness is mildly increased. The septum is abnormal, consistent with RV volume and/or pressure overload. Unable to assess diastolic dysfunction. Right Ventricle: The right ventricle appears enlarged. Right ventricular systolic function appears reduced. Unable to assess right sided pressures due to lack of measurable tricuspid regurgitation. Left Atrium: Left atrium is poorly visualized. Right Atrium: Right atrium is poorly visualized. Pericardium: There is a small pericardial effusion. Overall Conclusions: Due to suboptimal imaging Lumason contrast was administered for opacification and better delineation of endocardial borders. No significant valvular abnormalities Measurements Left Ventricle Label Value Normal Value LVOTd 1.9 cm (18cm - 20cm) LVDd, 2D 4.6 cm (3.9cm - 5.3cm) LVDs, 2D 3.23 cm (2.1cm - 4cm) IVSd, 2D 1.25 cm (0.6cm - 1.1cm) LVPWd, 2D 1.21 cm (0.6cm - 0.9cm) LV Mass, 2D ASE 212.39 g LV Mass Index, 2D ASE 96.5 g/m?? (44g/m?? - 88.4g/m??) RWT, MM 0.53 (0 - 0.42) LVSVI, 2D 25 ml/m2 Left Atrium Label Value Normal Value LADs, 2D 3.6 cm (2.7cm - 3.8cm) Mitral Valve Label Value Normal Value MV E Vmax 1.02 m/s MV A Vmax 0.6 m/s MV E/A 1.7 MV E/E' lateral 20.8 MV E' lateral 0.05 m/s Aorta Label Value Normal Value AoRoot, 2D 2.7 cm (1.4cm - 3.8cm) Great Vessels Label Value Normal Value IVC 2.4 cm (1.2cm - 2.3cm) Valvular Assessment LVOT 0.7 - 1.1 m/sec Aortic Valve 1.0 - 1.7 m/sec Mitral Valve 0.6 - 1.3 m/sec Tricuspid Valve 0.3 - 0.7 m/sec Pulmonic Valve 0.6 - 0.9 m/sec Regurgitation No Trivial Trivial Stenosis No No No Max Velocity 1.02 m/sec Findings Left Ventricle: The left ventricle is normal size. Global left ventricular systolic function is normal. EF range is estimated at 60 % -65 %. Left ventricular wall thickness is mildly increased. The septum is abnormal, consistent with RV volume and/or pressure overload. Unable to assess diastolic dysfunction. Left atrial filling pressure is elevated. Right Ventricle: Right ventricle is poorly visualized. The right ventricle appears enlarged. Right ventricular systolic function appears reduced. Unable to assess right sided pressures due to lack of measurable tricuspid regurgitation. Left Atrium: Left atrium is poorly visualized. Right Atrium: Right atrium is poorly visualized. Mitral Valve: There is nonspecific thickening of the mitral valve leaflet. Trivial mitral regurgitation. No mitral valve stenosis. Aortic Valve: The aortic valve is normal. No aortic valve regurgitation. No aortic valve stenosis. The aortic valve is trileaflet. Tricuspid Valve: Normal tricuspid valve. Trivial tricuspid regurgitation. No tricuspid valve stenosis. Pulmonic Valve: Pulmonic valve is poorly visualized. Aorta: The aortic root exhibits normal size. Great Vessels: IVC: The IVC is dilated. There is no inspiratory collapse of the IVC. Pericardium: There is a small pericardial effusion. Procedure Staff Reading Group: [facility] Referring Physician: RAVINDER RODRIGUEZ Blood Bank Laboratory Professional: ERMIAS Mckee Ordering Physician: JAKE BUCKLEY 12 lead Normal sinus rhythm Nonspecific T wave abnormality Abnormal ECG When compared with ECG of 09-NOV-2020 07:35, Nonspecific T wave abnormality now evident in Anterior leads Confirmed by Steve FABIAN, L.S. (2) on 10/07/2024 12:01:23 PM XR chest 1 view Narrative: XR CHEST 1 VIEW 10/07/2024 9:43 AM CLINICAL INDICATIONS: Pneumonia COMPARISON: None FINDINGS: Bilateral pulmonary infiltrates. Small effusions and atelectasis. No pneumothorax. Heart size stable. Impression: Extensive pulmonary infiltrates consistent with edema and/or multifocal pneumonia. Electronically signed: Arthur Shepherd. Assessment: NSTEMI attributed to supply/demand mismatch in the setting of acute illness and DKA, peak HS troponin 56 Mild CAD on cath 2020 Reduced RV systolic function on surface echo in the setting of chronic PETRA with CPAP nonadherence T2DM (9.7%) HTN HLD Obstructive sleep apnea with CPAP nonadherence Plan: Surface echo reviewed. Within visualization limitations, no clear wall motion abnormalities were identified. No cardiac indication for heparin infusion. Management of pneumonia and DKA per Hospitalist Medicine. Continue to closely monitor volume status; patient may benefit from more aggressive diuresis once her acute pathologies have resolved, however will defer at this time given acute illness. Ms Bradshaw would benefit from stress testing, however given her acute presentation, will not pursue at this time. Can be performed as an outpatient once Ms Bradshaw has recovered from her acute illness. Maintain telemetry. Electrolyte correction with target potassium 4.0, magnesium 2.0. Associated attestation - Jake Buckley MD - 10/07/2024 6:54 PM EDT By using the attestations below, the signing clinician agrees that I have read and verify that thedocumentation has been personally reviewed by me and ensure that the documentation accurately reflects the encounter. GC: I personally saw this patient on the day of the encounter, performed the ramos portion(s) of the service and participated in the management and confirm the resident's documentation. Please note there may be an additional personal documentation from me. (Dr. Amaya).) Additional Comments: Patient presented with shortness of breath and she found to have bilateral pulmonary infiltration consistent with pneumonia. Also she had minimal elevation of troponin consistentwith type II myocardial infarction. She had mild CAD based on the cath on 2020, severe RV enlargement consistent with chronic cor pulmonale secondary to him compliant with PETRA and CPAP. Diabetes mellitus, hypertension, hyperlipidemia and PETRA. Based on this the medical therapy is going to be to continue focus on pneumonia and monitor troponin. If he still minimally elevated, will consider stress test as an outpatient as it was planned. documented in this encounter Nursing Notes * Meredith Escalona RN - 10/11/2024 3:34 PM EDT AVS gone over with patient and all questions answered at this time. Patient encouraged to call if any new questions/concerns arise. * Judy Butler LPN - 10/11/2024 8:18 AM EDT The findings from this face to face encounter indicate the reason this patient requires oxygen Patient is diagnosed with a chronic condition requiring the use of oxygen to maintain stability outside the hospital setting This note constitutes a F2F for home oxygen therapy. Patient qualifies for Home Oxygen Therapy as evaluated by respiratory therapy. 2L NC at rest and 4Lwith ambulation. HOME O2 EVAL REVIEWED AND PATIENT REQUIRES OXYGEN DUE TO SPO2 84 % ON ROOM AIR WITH AMBULATION. Dx: PNA * Raysa Breen RN - 10/10/2024 6:15 PM EDT Pt was to discharge today but is delayed by home O2 order and a med that needs changed, IV access d/c'd per order earlier, MD aware of all of this, pt agreeable and understanding. No further issues noted. documented in this encounter Miscellaneous Notes * Care Plan - Meredith Escalona RN - 10/11/2024 1:52 PM EDT The patient is Moderately Stable - Low risk of patient condition declining or worsening The patient's goals for the shift include comfort The clinical goals for the shift include VSS; safety Problem: Pain - Adult Goal: Verbalizes/displays adequate comfort level or baseline comfort level Outcome: Progressing Problem: Safety - Adult Goal: Free from fall injury Outcome: Progressing Problem: Discharge Planning Goal: Discharge to home or other facility with appropriate resources Outcome: Progressing Problem: Chronic Conditions and Co-morbidities Goal: Patient's chronic conditions and co-morbidity symptoms are monitored and maintained or improved Outcome: Progressing Problem: Neurosensory - Adult Goal: Achieves stable or improved neurological status Outcome: Progressing Problem: Respiratory - Adult Goal: Achieves optimal ventilation and oxygenation Outcome: Progressing Problem: Cardiovascular - Adult Goal: Maintains optimal cardiac output and hemodynamic stability Outcome: Progressing Problem: Skin/Tissue Integrity - Adult Goal: Skin integrity remains intact Outcome: Progressing Problem: Musculoskeletal - Adult Goal: Return mobility to safest level of function Outcome: Progressing Problem: Gastrointestinal - Adult Goal: Maintains or returns to baseline bowel function Outcome: Progressing Problem: Genitourinary - Adult Goal: Absence of urinary retention Outcome: Progressing Problem: Infection - Adult Goal: Absence of infection at discharge Outcome: Progressing Problem: Metabolic/Fluid and Electrolytes - Adult Goal: Electrolytes maintained within normal limits Outcome: Progressing Problem: Hematologic - Adult Goal: Maintains hematologic stability Outcome: Progressing * Care Plan - Vanessa Klein RN - 10/10/2024 10:11 PM EDT Problem: Pain - Adult Goal: Verbalizes/displays adequate comfort level or baseline comfort level Outcome: Progressing Flowsheets (Taken 10/10/20242006) Verbalizes/displays adequate comfort level or baseline comfort level: Encourage patient to monitor pain and request assistance Assess pain using appropriate pain scale Administer analgesics based on type and severity of pain and evaluate response Implement non-pharmacological measures as appropriate and evaluate response Problem: Safety - Adult Goal: Free from fall injury Outcome: Progressing Flowsheets (Taken 10/10/20242006) Free from fall injury: Assess patient frequently for physical needs Identify cognitive and physical deficits and behaviors that affect risk of falls [place] fall precautions as indicated by assessment Educate patient/family on patient safety, including physical limitations Instruct patient to call for assistance with activity based on assessment Modify environment to reduce risk of injury Consider OT/PT consult to assist with strengthening/mobility Problem: Discharge Planning Goal: Discharge to home or other facility with appropriate resources Outcome: Progressing Flowsheets (Taken 10/10/20242006) Discharge to home or other facility with appropriate resources: Identify barriers to discharge with patient and caregiver Identify discharge learning needs (meds, wound care, etc) Arrange for needed discharge resources and transportation as appropriate Problem: Chronic Conditions and Co-morbidities Goal: Patient's chronic conditions and co-morbidity symptoms are monitored and maintained or improved Outcome: Progressing Flowsheets (Taken 10/10/20242006) Care Plan - Patient's Chronic Conditions and Co-Morbidity Symptoms are Monitored and Maintained or Improved: Monitor and assess patient's chronic conditions and comorbid symptoms for stability, deterioration,or improvement Collaborate with multidisciplinary team to address chronic and comorbid conditions and prevent exacerbation or deterioration Update acute care plan with appropriate goals if chronic or comorbid symptoms are exacerbated and prevent overall improvement and discharge Problem: Neurosensory - Adult Goal: Achieves stable or improved neurological status Outcome: Progressing Flowsheets (Taken 10/10/20242006) Achieves stable or improved neurological status: Assess for and report changes in neurological status Initiate measures to prevent increased intracranial pressure Maintain blood pressure and fluid volume within ordered parameters to optimize cerebral perfusion and minimize risk of hemorrhage Problem: Respiratory - Adult Goal: Achieves optimal ventilation and oxygenation Outcome: Progressing Problem: Cardiovascular - Adult Goal: Maintains optimal cardiac output and hemodynamic stability Outcome: Progressing Flowsheets (Taken 10/10/20242006) Maintains optimal cardiac output and hemodynamic stability: Monitor blood pressure and heart rate Monitor urine output and notify Licensed Independent Practitioner for values outside of normal range Assess for signs of decreased cardiac output Problem: Skin/Tissue Integrity - Adult Goal: Skin integrity remains intact Outcome: Progressing Flowsheets (Taken 10/10/20242006) Skin integrity remains intact: Monitor for areas of redness and/or skin breakdown Assess vascular access sites hourly Problem: Musculoskeletal - Adult Goal: Return mobility to safest level of function Outcome: Progressing Flowsheets (Taken 10/10/20242006) Return mobility to safest level of function: Assess patient stability and activity tolerance for standing, transferring and ambulating with or without assistive devices Assist with transfers and ambulation using safe patient handling equipment as needed Ensure adequate protection for wounds/incisions during mobilization Problem: Gastrointestinal - Adult Goal: Maintains or returns to baseline bowel function Outcome: Progressing Flowsheets (Taken 10/10/20242006) Maintains or returns to baseline bowel function: Assess bowel function Encourage oral fluids to ensure adequate hydration Problem: Genitourinary - Adult Goal: Absence of urinary retention Outcome: Progressing Flowsheets (Taken 10/10/20242006) Absence of urinary retention: Assess patient???s ability to void and empty bladder Monitor intake/output and perform bladder scan as needed Problem: Infection - Adult Goal: Absence of infection at discharge Outcome: Progressing Flowsheets (Taken 10/10/20242006) Absence of infection at discharge: Assess and monitor for signs and symptoms of infection Monitor lab/diagnostic results Problem: Metabolic/Fluid and Electrolytes - Adult Goal: Electrolytes maintained within normal limits Outcome: Progressing Flowsheets (Taken 10/10/20242006) Electrolytes maintained within normal limits: Monitor labs and assess patient for signs and symptoms of electrolyte imbalances Administer electrolyte replacement as ordered Problem: Hematologic - Adult Goal: Maintains hematologic stability Outcome: Progressing Flowsheets (Taken 10/10/20242006) Maintains hematologic stability: Assess for signs and symptoms of bleeding or hemorrhage The patient is Moderately Stable - Low risk of patient condition declining or worsening The patient's goals for the shift include comfort The clinical goals for the shift include VSS; safety * Care Plan - Iza Stauffer RN - 10/10/2024 3:38 PM EDT Daily Case Management Update Multidisciplinary rounds have been completed. Barriers to Discharge: nearly medically ready/discharge pulled today. Await clarification on medications. Dc Plan : Home, resume [facility]. TG called Rusty @ [facility] agreeable to provide Home O2. Scripts/Orders/Progress Notes reviewed with Rusty per phone. Rusty aware that pt lives in [facility]. Await Script Dx to be fixed as PETRA is not a qualifying diagnosis (but PNA is). TG called Rusty back & informed dc on hold until 10/11 ; TG offered to fax the clinical that I have printed but Rusty stated to hold off until tomorrow & fax everything together Diet: Dietary Orders (From admission, onward) Start Ordered 10/07/24 1248 Regular Diet Heart Healthy/HTN, CABG,Stroke, (2gNA, low fat, low cholesterol); Diabetic Female (carb 45g/meal); Soy Allergy, Egg Allergy Diet effective now Question Answer Comment Room Service? Yes Fat restriction: Heart Healthy/HTN, CABG,Stroke, (2gNA, low fat, low cholesterol) Carbohydrate restriction: Diabetic Female (carb 45g/meal) Other restriction(s): Soy Allergy Other restriction(s): Egg Allergy 10/07/24 1247 Physician Expected Discharge Date: 10/10/2024 Discharge Delays: PT Six Click Score: 23 OT Six Click Score: PT Recommendations: OT Recommendations: New Consults: * Significant Event - Justine Montoya RRT - 10/10/2024 11:35 AM EDT 10/10/24 1115 Home Oxygen Therapy Evaluation Pulse Oximetry on room air at Rest 91 Pulse Ox on O2 with nasal cannula while at rest 94 (2L) Pulse Ox on room air while walking 84 Pulse Ox on O2 with nasal cannula while walking 93 (4L) Patient Qualification for home oxygen Qualifies * Care Plan - Raysa Breen RN - 10/10/2024 11:05 AM EDT The patient is Moderately Stable - Low risk of patient condition declining or worsening The patient's goals for the shift include discharge home The clinical goals for the shift include staable vitals and safety Over the shift, the patient did make progress toward the following goals. Barriers to progression include delay with home oxygen if needed. Recommendations to address these barriers include communicate new orders and update discharge planning Problem: Pain - Adult Goal: Verbalizes/displays adequate comfort level or baseline comfort level Outcome: Progressing . * Hospital Course - Ravinder Rodriguez MD - 10/10/2024 10:11 AM EDT [facility] 54 y.[facility]. female with medical history notable for mild CAD (cath 2020), T2DM(9.7%), HTN, HLD, presented with three days of cough productive of rust colored sputum. She is currently being treated for community acquired pneumonia and diabetic ketoacidosis. S Notable labs include HS trop 56 trended to 53. ECG demonstrated sinus rhythm. As far as elevated troponin, patient was evaluated by cardiology team they felt patient can have this test outpatient on nonurgent basis Regarding patient's pneumonia, patient started on Rocephin and doxycycline and she will continue ondischarge cefpodoxime and doxycycline for 3 more days. Patient has mild allergy to doxycycline seems with Benadryl he was able to tolerate. Patient also treated for uncontrolled hyperglycemia with insulin drip initially and then transitionto Lantus. On discharge patient to continue her insulin pump at home. Patient on discharge to follow-up with PCP in 1 week. * Care Plan - Erin Castillo RN - 10/09/2024 8:11 PM EDT Problem: Pain - Adult Goal: Verbalizes/displays adequate comfort level or baseline comfort level Outcome: Progressing Problem: Safety - Adult Goal: Free from fall injury Outcome: Progressing Flowsheets (Taken 10/09/20241999) Free from fall injury: Assess patient frequently for physical needs Identify cognitive and physical deficits and behaviors that affect risk of falls [place] fall precautions as indicated by assessment Educate patient/family on patient safety, including physical limitations Instruct patient to call for assistance with activity based on assessment Modify environment to reduce risk of injury Consider OT/PT consult to assist with strengthening/mobility Problem: Discharge Planning Goal: Discharge to home or other facility with appropriate resources Outcome: Progressing Problem: Chronic Conditions and Co-morbidities Goal: Patient's chronic conditions and co-morbidity symptoms are monitored and maintained or improved Outcome: Progressing Flowsheets (Taken 10/09/20240) Care Plan - Patient's Chronic Conditions and Co-Morbidity Symptoms are Monitored and Maintained or Improved: Monitor and assess patient's chronic conditions and comorbid symptoms for stability, deterioration,or improvement Collaborate with multidisciplinary team to address chronic and comorbid conditions and prevent exacerbation or deterioration Update acute care plan with appropriate goals if chronic or comorbid symptoms are exacerbated and prevent overall improvement and discharge The patient is Moderately Stable - Low risk of patient condition declining or worsening The patient's goals for the shift include figure out a plan The clinical goals for the shift include VSS, safety * Assessment & Plan Note - Ravinder Rodriguez MD - 10/09/2024 10:41 AM EDTAssociated Problem(s): NSTEMI (non-ST elevated myocardial infarction) ([facility]) Repeat troponin Discontinue heparin drip Perform stress test in outpatient post recovery from acute illness * Assessment & Plan Note - Ravinder Rodriguez MD - 10/09/2024 10:41 AM EDTAssociated Problem(s): Pneumonia of right lower lobe due to infectious organism Continue treatment with ceftriaxone and doxycycline, follow-up culture results Add benadryl to use with doxycycline for allergic reaction * Assessment & Plan Note - Ravinder Rodriguez MD - 10/09/2024 10:41 AM EDTAssociated Problem(s): Acute on chronic anemia monitor hemoglobin, transfuse for hemoglobin less than 7 Monitor clinically for source of bleeding * Assessment & Plan Note - Ravinder Rodriguez MD - 10/09/2024 10:41 AM EDTAssociated Problem(s): Acquired hypothyroidism continue levothyroxine * Assessment & Plan Note - Ravinder Rodriguez MD - 10/09/2024 10:41 AM EDTAssociated Problem(s): Hyperlipidemia reports allergy/intolerance of statins Continue fenofibrate * Assessment & Plan Note - Ravinder Rodriguez MD - 10/09/2024 10:41 AM EDTAssociated Problem(s): Insulin dependent type 2 diabetes mellitus (CMS/HCC) uncontrolled with hyperglycemia due to noncompliance of insulin Normally has an insulin pump but she left at home Insulin drip was discontinued and patient switched to 50 Lantus twice daily will increase the dose today to 60 twice daily. Patient can continue her home insulin pump on discharge A1c 9.0 * Assessment & Plan Note - Ravinder Rodriguez MD - 10/09/2024 10:41 AM EDTAssociated Problem(s): Class 3 obesity BMI 44.12 --> 48.01 * Assessment & Plan Note - Ravinder Rodriguez MD - 10/09/2024 10:41 AM EDTAssociated Problem(s): Essential hypertension continue oral antihypertensives * Assessment & Plan Note - Ravinder Rodriguez MD - 10/09/2024 10:41 AM EDTAssociated Problem(s): History of supraventricular tachycardia Continue rate control medications with Lopressor * Assessment & Plan Note - Ravinder Rodriguez MD - 10/09/2024 10:41 AM EDTAssociated Problem(s): Chronic kidney disease (CKD), stage III (moderate) ([facility]) Creatinine seems at baseline * Assessment & Plan Note - Ravinder Rodriguez MD - 10/09/2024 10:41 AM EDTAssociated Problem(s): GERD (gastroesophageal reflux disease) continue PPI * Care Plan - Albert Diamond RN - 10/09/2024 9:53 AM EDT Problem: Chronic Conditions and Co-morbidities Goal: Patient's chronic conditions and co-morbidity symptoms are monitored and maintained or improved Outcome: Progressing Flowsheets (Taken 10/09/2024 08) Care Plan - Patient's Chronic Conditions and Co-Morbidity Symptoms are Monitored and Maintained or Improved: Monitor and assess patient's chronic conditions and comorbid symptoms for stability, deterioration,or improvement Collaborate with multidisciplinary team to address chronic and comorbid conditions and prevent exacerbation or deterioration Update acute care plan with appropriate goals if chronic or comorbid symptoms are exacerbated and prevent overall improvement and discharge Problem: Discharge Planning Goal: Discharge to home or other facility with appropriate resources Outcome: Progressing Flowsheets (Taken 10/09/2024 08) Discharge to home or other facility with appropriate resources: Identify barriers to discharge withpatient and caregiver The patient is Moderately Stable - Low risk of patient condition declining or worsening The patient's goals for the shift include Figure out a plan The clinical goals for the shift include VSS, safety Over the shift, the patient did not make progress toward the following goals. * Care Plan - Erin Castillo RN - 10/08/2024 7:58 PM EDT Problem: Pain - Adult Goal: Verbalizes/displays adequate comfort level or baseline comfort level Outcome: Progressing Problem: Safety - Adult Goal: Free from fall injury Outcome: Progressing Flowsheets (Taken 10/08/2024 1900) Free from fall injury: Assess patient frequently for physical needs Identify cognitive and physical deficits and behaviors that affect risk of falls [place] fall precautions as indicated by assessment Educate patient/family on patient safety, including physical limitations Instruct patient to call for assistance with activity based on assessment Modify environment to reduce risk of injury Consider OT/PT consult to assist with strengthening/mobility Problem: Discharge Planning Goal: Discharge to home or other facility with appropriate resources Outcome: Progressing Flowsheets (Taken 10/08/2024 1900) Discharge to home or other facility with appropriate resources: Identify barriers to discharge withpatient and caregiver Problem: Chronic Conditions and Co-morbidities Goal: Patient's chronic conditions and co-morbidity symptoms are monitored and maintained or improved Outcome: Progressing Flowsheets (Taken 10/08/2024 1900) Care Plan - Patient's Chronic Conditions and Co-Morbidity Symptoms are Monitored and Maintained or Improved: Monitor and assess patient's chronic conditions and comorbid symptoms for stability, deterioration,or improvement Collaborate with multidisciplinary team to address chronic and comorbid conditions and prevent exacerbation or deterioration Update acute care plan with appropriate goals if chronic or comorbid symptoms are exacerbated and prevent overall improvement and discharge The patient is Moderately Stable - Low risk of patient condition declining or worsening The patient's goals for the shift include figure out a plan The clinical goals for the shift include VSS, safety * Care Plan - Faiza Magana RN - 10/08/2024 6:42 PM EDT Daily Case Management Update Multidisciplinary rounds have been completed. Barriers to Discharge: Pending medical clearance for discharge. Hep and insulin gtts d/c'd today. Cardio consulted but have no plans of IP invest/intervent. Will arrange OP follow up and poss OP stress. Likely MR 10/09. Diet: Dietary Orders (From admission, onward) Start Ordered 10/07/24 1248 Regular Diet Heart Healthy/HTN, CABG,Stroke, (2gNA, low fat, low cholesterol); Diabetic Female (carb 45g/meal); Soy Allergy, Egg Allergy Diet effective now Question Answer Comment Room Service? Yes Fat restriction: Heart Healthy/HTN, CABG,Stroke, (2gNA, low fat, low cholesterol) Carbohydrate restriction: Diabetic Female (carb 45g/meal) Other restriction(s): Soy Allergy Other restriction(s): Egg Allergy 10/07/24 1247 Physician Expected Discharge Date: 10/09/2024 Discharge Delays: PT Six Click Score: OT Six Click Score: PT Recommendations: OT Recommendations: Does patient understand post acute plan of care? Yes Is expected discharge disposition appropriate for patient?: Yes New Consults: * Assessment & Plan Note - Ravinder Rodriguez MD - 10/08/2024 10:17 AM EDTAssociated Problem(s): NSTEMI (non-ST elevated myocardial infarction) ([facility]) Repeat troponin Discontinue heparin drip Perform stress test in outpatient post recovery from acute illness * Assessment & Plan Note - Ravinder Rodriguez MD - 10/08/2024 10:17 AM EDTAssociated Problem(s): Pneumonia of right lower lobe due to infectious organism Continue treatment with ceftriaxone and doxycycline, follow-up culture results Add benadryl to use with doxycycline for allergic reaction * Assessment & Plan Note - Ravinder Rodriguez MD - 10/08/2024 10:17 AM EDTAssociated Problem(s): Acute on chronic anemia monitor hemoglobin, transfuse for hemoglobin less than 7 Monitor clinically for source of bleeding * Assessment & Plan Note - Ravinder Rodriguez MD - 10/08/2024 10:17 AM EDTAssociated Problem(s): Acquired hypothyroidism continue levothyroxine * Assessment & Plan Note - Ravinder Rodriguez MD - 10/08/2024 10:17 AM EDTAssociated Problem(s): Hyperlipidemia reports allergy/intolerance of statins Continue fenofibrate * Assessment & Plan Note - Ravinder Rodriguez MD - 10/08/2024 10:17 AM EDTAssociated Problem(s): Insulin dependent type 2 diabetes mellitus (CMS/HCC) uncontrolled with hyperglycemia due to noncompliance of insulin Normally has an insulin pump but she left at home Will start insulin drip to evaluate insulin requirement and then transition to basal/bolus regimen check hemoglobin A1c Discontinue insulin drip 2 hours after first dose of glargine (Lantus) 50 units BID * Assessment & Plan Note - Ravinder Rodriguez MD - 10/08/2024 10:17 AM EDTAssociated Problem(s): Class 3 obesity BMI 44.12 --> 48.01 * Assessment & Plan Note - Ravinder Rodriguez MD - 10/08/2024 10:17 AM EDTAssociated Problem(s): Essential hypertension continue oral antihypertensives * Assessment & Plan Note - Ravinder Rodriguez MD - 10/08/2024 10:17 AM EDTAssociated Problem(s): Chronic kidney disease (CKD), stage III (moderate) (CMS/HCC) baseline unclear, monitor renal function, monitor I's and O's * Assessment & Plan Note - Ravinder Rodriguez MD - 10/08/2024 10:17 AM EDTAssociated Problem(s): GERD (gastroesophageal reflux disease) continue PPI * Care Plan - Rosalinda Jones RN - 10/08/2024 9:50 AM EDT The patient is Moderately Unstable - Medium risk of patient condition declining or worsening The patient's goals for the shift include figure out a plan The clinical goals for the shift include VSS, safety Problem: Pain - Adult Goal: Verbalizes/displays adequate comfort level or baseline comfort level Outcome: Progressing Problem: Safety - Adult Goal: Free from fall injury Outcome: Progressing Flowsheets (Taken 10/08/2024752) Free from fall injury: Assess patient frequently for physical needs Problem: Discharge Planning Goal: Discharge to home or other facility with appropriate resources Outcome: Progressing Flowsheets (Taken 10/08/2024 075) Discharge to home or other facility with appropriate resources: Identify barriers to discharge withpatient and caregiver Problem: Chronic Conditions and Co-morbidities Goal: Patient's chronic conditions and co-morbidity symptoms are monitored and maintained or improved Outcome: Progressing Flowsheets (Taken 10/08/2024 075) Care Plan - Patient's Chronic Conditions and Co-Morbidity Symptoms are Monitored and Maintained or Improved: Monitor and assess patient's chronic conditions and comorbid symptoms for stability, deterioration, or improvement * Care Plan - Erin Castillo RN - 10/07/2024 9:02 PM EDT Problem: Pain - Adult Goal: Verbalizes/displays adequate comfort level or baseline comfort level Outcome: Progressing Problem: Safety - Adult Goal: Free from fall injury Outcome: Progressing Flowsheets (Taken 10/07/20241999) Free from fall injury: Assess patient frequently for physical needs Identify cognitive and physical deficits and behaviors that affect risk of falls [place] fall precautions as indicated by assessment Educate patient/family on patient safety, including physical limitations Instruct patient to call for assistance with activity based on assessment Modify environment to reduce risk of injury Consider OT/PT consult to assist with strengthening/mobility Problem: Discharge Planning Goal: Discharge to home or other facility with appropriate resources Outcome: Progressing Flowsheets (Taken 10/07/20241999) Discharge to home or other facility with appropriate resources: Identify barriers to discharge withpatient and caregiver Problem: Chronic Conditions and Co-morbidities Goal: Patient's chronic conditions and co-morbidity symptoms are monitored and maintained or improved Outcome: Progressing Flowsheets (Taken 10/07/20241999) Care Plan - Patient's Chronic Conditions and Co-Morbidity Symptoms are Monitored and Maintained or Improved: Monitor and assess patient's chronic conditions and comorbid symptoms for stability, deterioration,or improvement Collaborate with multidisciplinary team to address chronic and comorbid conditions and prevent exacerbation or deterioration Update acute care plan with appropriate goals if chronic or comorbid symptoms are exacerbated and prevent overall improvement and discharge The patient is Moderately Stable - Low risk of patient condition declining or worsening The patient's goals for the shift include get a plan established with doctors The clinical goals for the shift include VSS, safety * Assessment & Plan Note - Ravinder Rodriguez MD - 10/07/2024 10:34 AM EDTAssociated Problem(s): NSTEMI (non-ST elevated myocardial infarction) ([facility]) Repeat troponin Continue heparin drip Cardiology consult * Assessment & Plan Note - Ravinder Rodriguez MD - 10/07/2024 10:34 AM EDTAssociated Problem(s): Pneumonia of right lower lobe due to infectious organism Continue treatment with ceftriaxone and doxycycline, follow-up culture results Add benadryl to use with doxycycline for allergic reaction Obtain chest X-ray * Assessment & Plan Note - Ravinder Rodriguez MD - 10/07/2024 10:34 AM EDTAssociated Problem(s): Acute on chronic anemia monitor hemoglobin, transfuse for hemoglobin less than 7 Monitor clinically for source of bleeding * Assessment & Plan Note - Ravinder Rodriguez MD - 10/07/2024 10:34 AM EDTAssociated Problem(s): Acquired hypothyroidism continue levothyroxine * Assessment & Plan Note - Ravinder Rodriguez MD - 10/07/2024 10:34 AM EDTAssociated Problem(s): Hyperlipidemia reports allergy/intolerance of statins Continue fenofibrate * Assessment & Plan Note - Ravinder Rodriguez MD - 10/07/2024 10:34 AM EDTAssociated Problem(s): Insulin dependent type 2 diabetes mellitus (CMS/HCC) uncontrolled with hyperglycemia due to noncompliance of insulin Normally has an insulin pump but she left at home Will start insulin drip to evaluate insulin requirement and then transition to basal/bolus regimen check hemoglobin A1c * Assessment & Plan Note - Ravinder Rodriguez MD - 10/07/2024 10:34 AM EDTAssociated Problem(s): Class 3 obesity BMI 44.12 * Assessment & Plan Note - Ravinder Rodriguez MD - 10/07/2024 10:34 AM EDTAssociated Problem(s): Essential hypertension continue oral antihypertensives * Assessment & Plan Note - Ravinder Rodriguez MD - 10/07/2024 10:34 AM EDTAssociated Problem(s): Chronic kidney disease (CKD), stage III (moderate) (CMS/HCC) baseline unclear, monitor renal function, monitor I's and O's * Assessment & Plan Note - Ravinder Rodriguez MD - 10/07/2024 10:34 AM EDTAssociated Problem(s): GERD (gastroesophageal reflux disease) continue PPI * Care Plan - Ning Rodrigues RN - 10/07/2024 9:32 AM EDT Problem: Pain - Adult Goal: Verbalizes/displays adequate comfort level or baseline comfort level Outcome: Progressing Flowsheets (Taken 10/07/2024 0700) Verbalizes/displays adequate comfort level or baseline comfort level: Encourage patient to monitor pain and request assistance Assess pain using appropriate pain scale Administer analgesics based on type and severity of pain and evaluate response Implement non-pharmacological measures as appropriate and evaluate response Consider cultural and social influences on pain and pain management Notify Licensed Independent Practitioner if interventions unsuccessful or patient reports new pain Problem: Safety - Adult Goal: Free from fall injury Outcome: Progressing Flowsheets (Taken 10/07/2024744) Free from fall injury: Assess patient frequently for physical needs Identify cognitive and physical deficits and behaviors that affect risk of falls [place] fall precautions as indicated by assessment Educate patient/family on patient safety, including physical limitations Instruct patient to call for assistance with activity based on assessment Modify environment to reduce risk of injury Consider OT/PT consult to assist with strengthening/mobility Problem: Discharge Planning Goal: Discharge to home or other facility with appropriate resources Outcome: Progressing Flowsheets (Taken 10/07/2024744) Discharge to home or other facility with appropriate resources: Identify barriers to discharge with patient and caregiver Arrange for needed discharge resources and transportation as appropriate Identify discharge learning needs (meds, wound care, etc) Arrange for interpreters to assist at discharge as needed Refer to discharge planning if patient needs post-hospital services based on physician order or complex needs related to functional status, cognitive ability or social support system Problem: Chronic Conditions and Co-morbidities Goal: Patient's chronic conditions and co-morbidity symptoms are monitored and maintained or improved Outcome: Progressing Flowsheets (Taken 10/07/2024744) Care Plan - Patient's Chronic Conditions and Co-Morbidity Symptoms are Monitored and Maintained or Improved: Monitor and assess patient's chronic conditions and comorbid symptoms for stability, deterioration,or improvement Collaborate with multidisciplinary team to address chronic and comorbid conditions and prevent exacerbation or deterioration Update acute care plan with appropriate goals if chronic or comorbid symptoms are exacerbated and prevent overall improvement and discharge The patient is Moderately Stable - Low risk of patient condition declining or worsening The patient's goals for the shift include get a plan establish with the md's The clinical goals for the shift include hemodynamically stable * Assessment & Plan Note - Silver Cain MD - 10/07/2024 1:25 AM EDT Associated Problem(s): NSTEMI (non-ST elevated myocardial infarction) ([facility]) monitor on telemetry, trend cardiac enzymes Continue heparin drip Cardiology consult * Assessment & Plan Note - Silver Cain MD - 10/07/2024 1:25 AM EDT Associated Problem(s): Pneumonia of right lower lobe due to infectious organism Will empirically treat with ceftriaxone and doxycycline, follow-up culture results * Assessment & Plan Note - Silver Cain MD - 10/07/2024 1:25 AM EDT Associated Problem(s): Acute on chronic anemia monitor hemoglobin, transfuse for hemoglobin less than 7 Monitor clinically for source of bleeding * Assessment & Plan Note - Silver Cain MD - 10/07/2024 1:25 AM EDT Associated Problem(s): Acquired hypothyroidism continue levothyroxine * Assessment & Plan Note - Silver Cain MD - 10/07/2024 1:25 AM EDT Associated Problem(s): Hyperlipidemia reports allergy/intolerance of statins Continue fenofibrate * Assessment & Plan Note - Silver Cain MD - 10/07/2024 1:25 AM EDT Associated Problem(s): Insulin dependent type 2 diabetes mellitus ([facility]) uncontrolled with hyperglycemia due to noncompliance of insulin Normally has an insulin pump but she left at home Will start insulin drip to evaluate insulin requirement and then transition to basal/bolus regimen check hemoglobin A1c * Assessment & Plan Note - Silver Cain MD - 10/07/2024 1:25 AM EDT Associated Problem(s): Class 3 obesity BMI 44.12 * Assessment & Plan Note - Silver Cain MD - 10/07/2024 1:25 AM EDT Associated Problem(s): Essential hypertension continue oral antihypertensives * Assessment & Plan Note - Silver Cain MD - 10/07/2024 1:25 AM EDT Associated Problem(s): Chronic kidney disease (CKD), stage III (moderate) ([facility]) baseline unclear, monitor renal function, monitor I's and O's * Assessment & Plan Note - Silver Cain MD - 10/07/2024 1:25 AM EDT Associated Problem(s): GERD (gastroesophageal reflux disease) continue PPI * Care Plan - Erin Castillo RN - 10/06/2024 11:37 PM EDT Problem: Pain - Adult Goal: Verbalizes/displays adequate comfort level or baseline comfort level Outcome: Progressing Problem: Safety - Adult Goal: Free from fall injury Outcome: Progressing Problem: Discharge Planning Goal: Discharge to home or other facility with appropriate resources Outcome: Progressing Problem: Chronic Conditions and Co-morbidities Goal: Patient's chronic conditions and co-morbidity symptoms are monitored and maintained or improved Outcome: Progressing The patient is Moderately Stable - Low risk of patient condition declining or worsening The patient's goals for the shift include Treatment The clinical goals for the shift include VSS, safety O documented in this encounter Plan of Treatment Upcoming Encounters Date Type Department Care Team (Late st Contact Info) Description 11/09/2024 1:45 PM EDT Follow-Up [facility] [address] [place] [id number] Rebeca Valadez MD [address] [facility] [address] [place] [address] Scheduled Referrals Name Type Priority Associated Diagnoses Orde r Schedule Ambulatory referral to Nutrition Services Outpatient Referral Routine Type 2 diabetes mellitus without complication, unspecified whether halfway insulin use ([facility]) Expected: 10/07/2024 (Approximate), Expires: 04/09/2025 documented as of this encounter Procedures Procedure Name Priority Date/Time Associated Diagnosis Comments POCT GLUCOSE METER UNSOLICITED RESULTS Routine 10/11/2024 12:03 PM EDT POCT GLUCOSE METER UNSOLICITED RESULTS Routine 10/11/2024 7:32 AM EDT EXTRA TUBES Routine 10/11/2024 3:57 AM EDT LIGHT GREEN TOP Routine 10/11/2024 3:57 AM EDT CBC Pending Discharge 10/11/2024 3:57 AM EDT POCT GLUCOSE METER UNSOLICITED RESULTS Routine 10/10/2024 8:04 PM EDT POCT GLUCOSE METER UNSOLICITED RESULTS Routine 10/10/2024 4:43 PM EDT POCT GLUCOSE METER UNSOLICITED RESULTS Routine 10/10/2024 11:51 AM EDT HOME O2 EVAL (DESATURATION SCREEN) Routine 10/10/2024 10:47 AM EDT POCT GLUCOSE METER UNSOLICITED RESULTS Routine 10/10/2024 7:22 AM EDT HEMOGLOBIN AND HEMATOCRIT, BLOOD Pending Discharge 10/10/2024 3:22 AM EDT BASIC METABOLIC PANEL Pending Discharge 10/10/2024 3:22 AM EDT POCT GLUCOSE METER UNSOLICITED RESULTS Routine 10/09/2024 9:06 PM EDT POCT GLUCOSE METER UNSOLICITED RESULTS Routine 10/09/2024 3:49 PM EDT POCT GLUCOSE METER UNSOLICITED RESULTS Routine 10/09/2024 11:34 AM EDT POCT GLUCOSE METER UNSOLICITED RESULTS Routine 10/09/2024 7:51 AM EDT CBC Pending Discharge 10/09/2024 4:09 AM EDT BASIC METABOLIC PANEL Pending Discharge 10/09/2024 4:09 AM EDT POCT GLUCOSE METER UNSOLICITED RESULTS Routine 10/08/2024 8:31 PM EDT POCT GLUCOSE METER UNSOLICITED RESULTS Routine 10/08/2024 4:08 PM EDT POCT GLUCOSE METER UNSOLICITED RESULTS Routine 10/08/2024 1:01 PM EDT POCT GLUCOSE METER UNSOLICITED RESULTS Routine 10/08/2024 11:59 AM EDT POCT GLUCOSE METER UNSOLICITED RESULTS Routine 10/08/2024 11:15 AM EDT POCT GLUCOSE METER UNSOLICITED RESULTS Routine 10/08/2024 10:12 AM EDT POCT GLUCOSE METER UNSOLICITED RESULTS Routine 10/08/2024 9:06 AM EDT POCT GLUCOSE METER UNSOLICITED RESULTS Routine 10/08/2024 8:00 AM EDT POCT GLUCOSE METER UNSOLICITED RESULTS Routine 10/08/2024 7:03 AM EDT POCT GLUCOSE METER UNSOLICITED RESULTS Routine 10/08/2024 6:03 AM EDT POCT GLUCOSE METER UNSOLICITED RESULTS Routine 10/08/2024 5:08 AM EDT HEMOGLOBIN AND HEMATOCRIT, BLOOD Routine 10/08/2024 4:44 AM EDT BASIC METABOLIC PANEL Routine 10/08/2024 4:44 AM EDT POCT GLUCOSE METER UNSOLICITED RESULTS Routine 10/08/2024 3:45 AM EDT POCT GLUCOSE METER UNSOLICITED RESULTS Routine 10/08/2024 2:48 AM EDT POCT GLUCOSE METER UNSOLICITED RESULTS Routine 10/08/2024 1:47 AM EDT POCT GLUCOSE METER UNSOLICITED RESULTS Routine 10/08/2024 1:15 AM EDT POCT GLUCOSE METER UNSOLICITED RESULTS Routine 10/08/2024 12:38 AM EDT POCT GLUCOSE METER UNSOLICITED RESULTS Routine 10/07/2024 11:40 PM EDT POCT GLUCOSE METER UNSOLICITED RESULTS Routine 10/07/2024 10:35 PM EDT POCT GLUCOSE METER UNSOLICITED RESULTS Routine 10/07/2024 9:32 PM EDT POCT GLUCOSE METER UNSOLICITED RESULTS Routine 10/07/2024 8:33 PM EDT POCT GLUCOSE METER UNSOLICITED RESULTS Routine 10/07/2024 7:30 PM EDT POCT GLUCOSE METER UNSOLICITED RESULTS Routine 10/07/2024 6:33 PM EDT POCT GLUCOSE METER UNSOLICITED RESULTS Routine 10/07/2024 5:41 PM EDT POCT GLUCOSE METER UNSOLICITED RESULTS Routine 10/07/2024 4:40 PM EDT EXTRA TUBES Routine 10/07/2024 4:08 PM EDT LIGHT GREEN TOP Routine 10/07/2024 4:08 PM EDT ANTI-FACTOR XA Timed 10/07/2024 4:08 PM EDT POCT GLUCOSE METER UNSOLICITED RESULTS Routine 10/07/2024 3:38 PM EDT COMPLETE ECHO (TTE) W/ IMAGING AGENT Routine 10/07/2024 3:02 PM EDT POCT GLUCOSE METER UNSOLICITED RESULTS Routine 10/07/2024 2:15 PM EDT POCT GLUCOSE METER UNSOLICITED RESULTS Routine 10/07/2024 1:35 PM EDT POCT GLUCOSE METER UNSOLICITED RESULTS Routine 10/07/2024 12:25 PM EDT HIGH SENSITIVITY TROPONIN I Routine 10/07/2024 12:04 PM EDT ANTI-FACTOR XA Timed 10/07/2024 12:04 PM EDT LIPID PANEL Routine 10/07/2024 12:04 PM EDT POCT GLUCOSE METER UNSOLICITED RESULTS Routine 10/07/2024 10:44 AM EDT XR CHEST 1 VIEW Routine 10/07/2024 10:27 AM EDT ECG 12-LEAD Routine 10/07/2024 10:26 AM EDT POCT GLUCOSE METER UNSOLICITED RESULTS Routine 10/07/2024 9:41 AM EDT POCT GLUCOSE METER UNSOLICITED RESULTS Routine 10/07/2024 8:47 AM EDT POCT GLUCOSE METER UNSOLICITED RESULTS Routine 10/07/2024 7:40 AM EDT POCT GLUCOSE METER UNSOLICITED RESULTS Routine 10/07/2024 6:34 AM EDT ANTI-FACTOR XA Timed 10/07/2024 6:06 AM EDT CBC Routine 10/07/2024 6:06 AM EDT HIGH SENSITIVITY TROPONIN I Add-On 10/07/2024 6:00 AM EDT EXTRA TUBES Routine 10/07/2024 6:00 AM EDT LIGHT GREEN TOP Routine 10/07/2024 6:00 AM EDT RED TOP Routine 10/07/2024 6:00 AM EDT POCT GLUCOSE METER UNSOLICITED RESULTS Routine 10/07/2024 5:34 AM EDT POCT GLUCOSE METER UNSOLICITED RESULTS Routine 10/07/2024 4:36 AM EDT POCT GLUCOSE METER UNSOLICITED RESULTS Routine 10/07/2024 3:34 AM EDT APTT Routine 10/07/2024 1:01 AM EDT ANTI-FACTOR XA Routine 10/07/2024 1:01 AM EDT BASIC METABOLIC PANEL Routine 10/07/2024 1:01 AM EDT LACTIC ACID WITH 4 HOUR REFLEX Routine 10/07/2024 12:54 AM EDT BLOOD CULTURE STAT 10/07/2024 12:54 AM EDT BLOOD CULTURE STAT 10/07/2024 12:54 AM EDT POCT GLUCOSE METER UNSOLICITED RESULTS Routine 10/07/2024 12:11 AM EDT LACTIC ACID WITH 4 HOUR REFLEX Routine 10/06/2024 11:29 PM EDT CBC WITH AUTO DIFFERENTIAL STAT 10/06/2024 10:35 PM EDT CBC AND DIFFERENTIAL STAT 10/06/2024 10:35 PM EDT HEMOGLOBIN A1C Add-On 10/06/2024 10:35 PM EDT documented in this encounter Results * (ABNORMAL) POCT glucose meter (10/11/2024 12:03 PM EDT) [facility] Signature Glucose POC 318(H) 70 - 105 mg/dL 10/11/2024 12:20 PM EDT [facility] ([facility]) Comment:[email or web address] Blood Capillary blood specimen / Unknown 10/11/2024 12:03 PM EDT 10/11/2024 12:20 PM EDT Narrative [facility] ([facility]) - 10/11/2024 12:20 PM EDT Waived Testing in the ED is performed under the ED CLIA certificate #[id number]. Ravinder Rodriguez MD LAB BLOOD ORDERABLES Performing Organization Address City/[facility] Co de Phone Number [facility]) [address] [place] [address] * (ABNORMAL) POCT glucose meter (10/11/2024 7:32 AM EDT) Glucose POC 232(H) 70 - 105 mg/dL 10/11/2024 7:44 AM EDT [facility] ([facility]) Comment:[email or web address] Blood Capillary blood specimen / Unknown 10/11/2024 7:32 AM EDT 10/11/2024 7:44 AM EDT Narrative [facility]) - 10/11/2024 7:44 AM EDT Waived Testing in the ED is performed under the ED CLIA certificate #[id number]. Ravinder Rodriguez MD LAB BLOOD ORDERABLES Performing Organization Address [facility] Co de Phone Number [facility]) [address] [place] [address] * Light Green Top (10/11/2024 3:57 AM EDT) Extra Tube Hold for add-ons. 10/11/2024 7:01 AM EDT [facility] ([facility]) Comment:Auto resulted. Blood Venous blood specimen / Unknown 10/11/2024 3:57 AM EDT 10/11/2024 5:12 AM EDT Ravinder Rodriguez MD LAB BLOOD ORDERABLES Performing Organization Address City/[facility]/ZIP Co de Phone Number [facility] ([facility]) [address] [place] [address] * (ABNORMAL) CBC (10/11/2024 3:57 AM EDT) Auto WBC 5.66 4.00 - 10.60 10*3/uL 10/11/2024 5:44 AM EDT [facility] ([facility]) RBC 2.82(L) 3.80 - 5.00 10*6/uL 10/11/2024 5:44 AM EDT [facility] ([facility]) Hemoglobin 8.6(L) 12.0 - 15.0 g/dL 10/11/2024 5:44 AM EDT [facility] ([facility]) Hematocrit 26.9(L) 36.0 - 45.0 % 10/11/2024 5:44 AM EDT [facility] ([facility]) MCV 95.4 82.0 - 98.0 fL 10/11/2024 5:44 AM EDT [facility] ([facility]) MCH 30.5 27.0 - 33.0 pg 10/11/2024 5:44 AM EDT [facility] ([facility]) MCHC 32.0 32.0 - 35.0 g/dL 10/11/2024 5:44 AM EDT [facility] ([facility]) RDW 14.8 11.5 - 15.0 % 10/11/2024 5:44 AM EDT [facility] ([facility]) Platelets 171 150 - 400 10*3/uL 10/11/2024 5:44 AM EDT [facility] ([facility]) Blood Venous blood specimen / Unknown Arterial Line / Unknown 10/11/2024 3:57 AM EDT 10/11/2024 5:12 AM EDT [facility] LAB BLOOD ORDERABLES [facility]) [address] [place] [address] * (ABNORMAL) POCT glucose meter (10/10/2024 8:04 PM EDT) Glucose POC 289(H) 70 - 105 mg/dL 10/10/2024 8:14 PM EDT [facility] ([facility]) Comment:[email or web address] Blood Capillary blood specimen / Unknown 10/10/2024 8:04 PM EDT 10/10/2024 8:14 PM EDT [facility] ([facility]) - 10/10/2024 8:14 PM EDT Waived Testing in the ED is performed under the ED CLIA certificate #[id number]. Ravinder Rodriguez MD LAB BLOOD ORDERABLES [facility]) [address] [place] [address] * (ABNORMAL) POCT glucose meter (10/10/2024 4:43 PM EDT) Glucose POC 320(H) 70 - 105 mg/dL 10/10/2024 4:54 PM EDT [facility] ([facility]) Comment:[email or web address] Blood Capillary blood specimen / Unknown 10/10/2024 4:43 PM EDT 10/10/2024 4:54 PM EDT [facility] ([facility]) - 10/10/2024 4:54 PM EDT Waived Testing in the ED is performed under the ED CLIA certificate #[id number]. Ravinder Rodriguez MD LAB BLOOD ORDERABLES [facility] ([facility]) [address] [place] [address] * (ABNORMAL) POCT glucose meter (10/10/2024 11:51 AM EDT) Glucose POC 338(H) 70 - 105 mg/dL 10/10/2024 12:02 PM EDT [facility] ([facility]) Comment:[email or web address] Blood Capillary blood specimen / Unknown 10/10/2024 11:51 AM EDT 10/10/2024 12:02 PM EDT Narrative [facility] ([facility]) - 10/10/2024 12:02 PM EDT Waived Testing in the ED is performed under the ED CLIA certificate #[id number]. Ravinder Rodriguez MD LAB BLOOD ORDERABLES Performing Organization Address City/[facility]/ZIP Co de Phone Number [facility] ([facility]) [address] [place] [address] * (ABNORMAL) POCT glucose meter (10/10/2024 7:22 AM EDT) Glucose POC 131(H) 70 - 105 mg/dL 10/10/2024 7:35 AM EDT [facility] ([facility]) Comment:[email or web address] Blood Capillary blood specimen / Unknown 10/10/2024 7:22 AM EDT 10/10/2024 7:35 AM EDT Narrative [facility] ([facility]) - 10/10/2024 7:35 AM EDT Waived Testing in the ED is performed under the ED CLIA certificate #[id number]. Ravinder Rodriguez MD LAB BLOOD ORDERABLES Performing Organization Address [facility] Co de Phone Number [facility] ([facility]) [address] [place] [address] * (ABNORMAL) Hemoglobin and hematocrit, blood (10/10/2024 3:22 AM EDT) Hemoglobin 8.5(L) 12.0 - 15.0 g/dL 10/10/2024 4:19 AM EDT [facility] ([facility]) Hematocrit 26.2(L) 36.0 - 45.0 % 10/10/2024 4:19 AM EDT [facility] ([facility]) Blood Venous blood specimen / Unknown Arterial Line / Unknown 10/10/2024 3:22 AM EDT 10/10/2024 4:07 AM EDT Ravinder Rodriguez MD LAB BLOOD ORDERABLES [facility] ([facility]) [address] [place] [address] * (ABNORMAL) Basic metabolic panel (10/10/2024 3:22 AM EDT) Sodium 141 136 - 145 mmol/L 10/10/2024 5:01 AM EDT [facility] ([facility]) Potassium 3.5 3.5 - 5.1 mmol/L 10/10/2024 5:01 AM EDT [facility] ([facility]) Chloride 109(H) 98 - 107 mmol/L 10/10/2024 5:01 AM EDT [facility] ([facility]) CO2 24 21 - 31 mmol/L 10/10/2024 5:01 AM EDT [facility] ([facility]) BUN 55(H) 7 - 25 mg/dL 10/10/2024 5:01 AM EDT [facility] ([facility]) Creatinine 1.46(H) 0.60 - 1.20 mg/dL 10/10/2024 5:01 AM EDT [facility] ([facility]) Glucose 119(H) 70 - 100 mg/dL 10/10/2024 5:01 AM EDT [facility] ([facility]) Calcium 8.1(L) 8.6 - 10.3 mg/dL 10/10/2024 5:01 AM EDT [facility] ([facility]) Anion Gap 12 7 - 20 mmol/L 10/10/2024 5:01 AM EDT [facility] ([facility]) eGFR 42.0(L) >60.0 mL/min/1. 73m*2 10/10/2024 5:01 AM T [facility] ([facility]) Comment:The [facility] s estimated glomerular filtration rate (eGFR) will no longer include consideration of race in its calculation. The [employer] s eGFR Task Force developed new recommendations for the estimation of the glomerular filtration rate in the [place] They recommend immediate implementation of the new equation refit without the race variable in all laboratories because the calculation does not include race. In addition to not including race in the calculation and reporting, it included diversity in its development, and has acceptable performance characteristics and potential consequences that do not disproportionately affect any one group of individuals. BUN/Creatinine Ratio 37.7 09/30 5:01 AM EDT [facility] ([facility]) Blood Venous blood specimen / Unknown Arterial Line / Unknown 10/10/2024 3:22 AM EDT 10/10/2024 4:08 AM EDT Ravinder Rodriguez MD LAB BLOOD ORDERABLES Performing Organization Address [facility]/ZIP Co de Phone Number [facility]) [address] [place] [address] * (ABNORMAL) POCT glucose meter (10/09/2024 9:06 PM EDT) Glucose POC 204(H) 70 - 105 mg/dL 10/09/2024 9:17 PM EDT [facility] ([facility]) Comment:[email or web address] Blood Capillary blood specimen / Unknown 10/09/2024 9:06 PM EDT 10/09/2024 9:17 PM EDT [facility] - 10/09/2024 9:17 PM EDT Waived Testing in the ED is performed under the ED CLIA certificate #[id number]. Ravinder Rodriguez MD LAB BLOOD ORDERABLES Performing Organization Address [facility] Co de Phone Number [facility]) [address] [place] [address] * (ABNORMAL) POCT glucose meter (10/09/2024 3:49 PM EDT) Glucose POC 312(H) 70 - 105 mg/dL 10/09/2024 4:09 PM EDT [facility] ([facility]) Comment:[email or web address] Blood Capillary blood specimen / Unknown 10/09/2024 3:49 PM EDT 10/09/2024 4:09 PM EDT [facility] ([facility]) - 10/09/2024 4:09 PM EDT Waived Testing in the ED is performed under the ED CLIA certificate #[id number]. Ravinder Rodriguez MD LAB BLOOD ORDERABLES [facility] ([facility]) [address] [place] [address] * (ABNORMAL) POCT glucose meter (10/09/2024 11:34 AM EDT) Glucose POC 305(H) 70 - 105 mg/dL 10/09/2024 11:46 AM EDT [facility] ([facility]) Comment:[email or web address] Blood Capillary blood specimen / Unknown 10/09/2024 11:34 AM EDT 10/09/2024 11:46 AM EDT Narrative [facility] ([facility]) - 10/09/2024 11:46 AM EDT Waived Testing in the ED is performed under the ED CLIA certificate #[id number]. Ravinder Rodriguez MD LAB BLOOD ORDERABLES Performing Organization Address [facility]/ZIP Co de Phone Number [facility] ([facility]) [address] [place] [address] * (ABNORMAL) POCT glucose meter (10/09/2024 7:51 AM EDT) Glucose POC 299(H) 70 - 105 mg/dL 10/09/2024 8:06 AM EDT [facility] ([facility]) Comment:[email or web address] Blood Capillary blood specimen / Unknown 10/09/2024 7:51 AM EDT 10/09/2024 8:06 AM EDT Narrative [facility] ([facility]) - 10/09/2024 8:06 AM EDT Waived Testing in the ED is performed under the ED CLIA certificate #[id number]. Ravinder Rodriguez MD LAB BLOOD ORDERABLES [facility] ([facility]) [address] [place] [address] * (ABNORMAL) CBC (10/09/2024 4:09 AM EDT) Auto WBC 4.95 4.00 - 10.60 10*3/uL 10/09/2024 5:06 AM EDT [facility] ([facility]) RBC 2.73(L) 3.80 - 5.00 10*6/uL 10/09/2024 5:06 AM EDT [facility] ([facility]) Hemoglobin 8.4(L) 12.0 - 15.0 g/dL 10/09/2024 5:06 AM EDT [facility] ([facility]) Hematocrit 25.9(L) 36.0 - 45.0 % 10/09/2024 5:06 AM EDT [facility] ([facility]) MCV 94.9 82.0 - 98.0 fL 10/09/2024 5:06 AM EDT [facility] ([facility]) MCH 30.8 27.0 - 33.0 pg 10/09/2024 5:06 AM EDT [facility] ([facility]) MCHC 32.4 32.0 - 35.0 g/dL 10/09/2024 5:06 AM EDT [facility] ([facility]) RDW 15.2(H) 11.5 - 15.0 % 10/09/2024 5:06 AM EDT [facility] ([facility]) Platelets 146(L) 150 - 400 10*3/uL 10/09/2024 5:06 AM EDT [facility] ([facility]) Blood Venous blood specimen / Unknown Arterial Line / Unknown 10/09/2024 4:09 AM EDT 10/09/2024 4:51 AM EDT [facility] LAB BLOOD ORDERABLES [facility] ([facility]) [address] [place] [address] * (ABNORMAL) Basic metabolic panel (10/09/2024 4:09 AM EDT) Sodium 137 136 - 145 mmol/L 10/09/2024 5:13 AM [facility] ([facility]) Potassium 3.7 3.5 - 5.1 mmol/L 10/09/2024 5:13 AM [facility] ([facility]) Chloride 107 98 - 107 mmol/L 10/09/2024 5:13 AM [facility] ([facility]) CO2 20(L) 21 - 31 mmol/L 10/09/2024 5:13 AM [facility] ([facility]) BUN 68(H) 7 - 25 mg/dL 10/09/2024 5:13 AM [facility] ([facility]) Creatinine 1.67(H) 0.60 - 1.20 mg/dL 10/09/2024 5:13 AM [facility] ([facility]) Glucose 303(H) 70 - 100 mg/dL 10/09/2024 5:13 AM [facility] ([facility]) Calcium 7.9(L) 8.6 - 10.3 mg/dL 10/09/2024 5:13 AM [facility] ([facility]) Anion Gap 14 7 - 20 mmol/L 10/09/2024 5:13 AM [facility] ([facility]) eGFR 35.7(L) >60.0 mL/min/1. 73m*2 10/09/2024 5:13 AM [facility] ([facility]) Comment:The [facility] s estimated glomerular filtration rate (eGFR) will no longer include consideration of race in its calculation. The [employer] s eGFR Task Force developed new recommendations for the estimation of the glomerular filtration rate in the [place] They recommend immediate implementation of the new equation refit without the race variable in all laboratories because the calculation does not include race. In addition to not including race in the calculation and reporting, it included diversity in its development, and has acceptable performance characteristics and potential consequences that do not disproportionately affect any one group of individuals. BUN/Creatinine Ratio 40.7 09/30 5:13 AM [facility] ([facility]) Blood Venous blood specimen / Unknown Arterial Line / Unknown 10/09/2024 4:09 AM EDT 10/09/2024 4:50 AM EDT Ravinder Rodriguez MD LAB BLOOD ORDERABLES [facility] ([facility]) [address] [place] [address] * (ABNORMAL) POCT glucose meter (10/08/2024 8:31 PM EDT) Glucose POC 285(H) 70 - 105 mg/dL 10/08/2024 8:42 PM EDT [facility] ([facility]) Comment:[email or web address] Blood Capillary blood specimen / Unknown 10/08/2024 8:31 PM EDT 10/08/2024 8:42 PM EDT Narrative [facility] ([facility]) - 10/08/2024 8:42 PM EDT Waived Testing in the ED is performed under the ED CLIA certificate #[id number]. Ravinder Rodriguez MD LAB BLOOD ORDERABLES Performing Organization Address City/[facility]/ZIP Co de Phone Number [facility] ([facility]) [address] [place] [address] * (ABNORMAL) POCT glucose meter (10/08/2024 4:08 PM EDT) Glucose POC 217(H) 70 - 105 mg/dL 10/08/2024 4:18 PM EDT [facility] ([facility]) Comment:[email or web address] Blood Capillary blood specimen / Unknown 10/08/2024 4:08 PM EDT 10/08/2024 4:18 PM EDT Narrative [facility] ([facility]) - 10/08/2024 4:18 PM EDT Waived Testing in the ED is performed under the ED CLIA certificate #[id number]. Ravinder Rodrgiuez MD LAB BLOOD ORDERABLES [facility] ([facility]) [address] [place] [address] * (ABNORMAL) POCT glucose meter (10/08/2024 1:01 PM EDT) Glucose POC 175(H) 70 - 105 mg/dL 10/08/2024 1:18 PM EDT [facility] ([facility]) Comment:[email or web address] Blood Capillary blood specimen / Unknown 10/08/2024 1:01 PM EDT 10/08/2024 1:18 PM EDT [facility] ([facility]) - 10/08/2024 1:18 PM EDT Waived Testing in the ED is performed under the ED CLIA certificate #[id number]. Ravinder Rodriguez MD LAB BLOOD ORDERABLES [facility]) [address] [place] [address] * (ABNORMAL) POCT glucose meter (10/08/2024 11:59 AM EDT) Glucose POC 225(H) 70 - 105 mg/dL 10/08/2024 12:10 PM EDT [facility] ([facility]) Comment:[email or web address] Blood Capillary blood specimen / Unknown 10/08/2024 11:59 AM EDT 10/08/2024 12:10 PM EDT [facility] ([facility]) - 10/08/2024 12:10 PM EDT Waived Testing in the ED is performed under the ED CLIA certificate #[id number]. Ravinder Rodriguez MD LAB BLOOD ORDERABLES [facility] ([facility]) [address], [place] [id number] * (ABNORMAL) POCT glucose meter (10/08/2024 11:15 AM EDT) Glucose POC 213(H) 70 - 105 mg/dL 10/08/2024 11:36 AM EDT [facility] ([facility]) Comment:[email or web address] Blood Capillary blood specimen / Unknown 10/08/2024 11:15 AM EDT 10/08/2024 11:36 AM EDT [facility] ([facility]) - 10/08/2024 11:36 AM EDT Waived Testing in the ED is performed under the ED CLIA certificate #[id number]. Ravinder Rodriguez MD LAB BLOOD ORDERABLES Performing Organization Address [facility]/ZIP Co de Phone Number [facility] ([facility]) [address] [place] [address] * (ABNORMAL) POCT glucose meter (10/08/2024 10:12 AM EDT) Glucose POC 201(H) 70 - 105 mg/dL 10/08/2024 10:32 AM EDT [facility] ([facility]) Comment:[email or web address] Blood Capillary blood specimen / Unknown 10/08/2024 10:12 AM EDT 10/08/2024 10:32 AM EDT [facility] ([facility]) - 10/08/2024 10:32 AM EDT Waived Testing in the ED is performed under the ED CLIA certificate #[id number]. Ravinder Rodriguez MD LAB BLOOD ORDERABLES Performing Organization Address [facility] Co de Phone Number [facility] ([facility]) [address] [place] [address] * (ABNORMAL) POCT glucose meter (10/08/2024 9:06 AM EDT) Glucose POC 162(H) 70 - 105 mg/dL 10/08/2024 9:34 AM EDT [facility] ([facility]) Comment:[email or web address] Blood Capillary blood specimen / Unknown 10/08/2024 9:06 AM EDT 10/08/2024 9:34 AM EDT [facility] ([facility]) - 10/08/2024 9:34 AM EDT Waived Testing in the ED is performed under the ED CLIA certificate #[id number]. Ravinder Rodriguez MD LAB BLOOD ORDERABLES [facility] ([facility]) [address] [place] [address] * (ABNORMAL) POCT glucose meter (10/08/2024 8:00 AM EDT) Glucose POC 182(H) 70 - 105 mg/dL 10/08/2024 8:10 AM EDT [facility] ([facility]) Comment:[email or web address] Blood Capillary blood specimen / Unknown 10/08/2024 8:00 AM EDT 10/08/2024 8:10 AM EDT [facility] ([facility]) - 10/08/2024 8:10 AM EDT Waived Testing in the ED is performed under the ED CLIA certificate #[id number]. Ravinder Rodriguez MD LAB BLOOD ORDERABLES Performing Organization Address [facility]/ZIP Co de Phone Number [facility] ([facility]) [address] [place] [address] * (ABNORMAL) POCT glucose meter (10/08/2024 7:03 AM EDT) Glucose POC 220(H) 70 - 105 mg/dL 10/08/2024 7:14 AM EDT [facility] ([facility]) Comment:[email or web address] Blood Capillary blood specimen / Unknown 10/08/2024 7:03 AM EDT 10/08/2024 7:14 AM EDT [facility] ([facility]) - 10/08/2024 7:14 AM EDT Waived Testing in the ED is performed under the ED CLIA certificate #[id number]. Ravinder Rodriguez MD LAB BLOOD ORDERABLES [facility] ([facility]) [address] [place] [address] * (ABNORMAL) POCT glucose meter (10/08/2024 6:03 AM EDT) Glucose POC 233(H) 70 - 105 mg/dL 10/08/2024 6:16 AM EDT [facility] ([facility]) Comment:[email or web address] Blood Capillary blood specimen / Unknown 10/08/2024 6:03 AM EDT 10/08/2024 6:16 AM EDT [facility] ([facility]) - 10/08/2024 6:16 AM EDT Waived Testing in the ED is performed under the ED CLIA certificate #[id number]. Ravinder Rodriguez MD LAB BLOOD ORDERABLES [facility]) [address], [place] [id number] * (ABNORMAL) POCT glucose meter (10/08/2024 5:08 AM EDT) Glucose POC 209(H) 70 - 105 mg/dL 10/08/2024 5:21 AM EDT [facility] ([facility]) Comment: [email or web address] Critical Value Noted Blood Capillary blood specimen / Unknown 10/08/2024 5:08 AM EDT 10/08/2024 5:21 AM EDT [facility] ([facility]) - 10/08/2024 5:21 AM EDT Waived Testing in the ED is performed under the ED CLIA certificate #[id number]. Ravinder Rodriguez MD LAB BLOOD ORDERABLES Performing Organization Address City/[facility]/ZIP Co de Phone Number [facility] ([facility]) [address], [place] [id number] * (ABNORMAL) Hemoglobin and hematocrit, blood (10/08/2024 4:44 AM EDT) Hemoglobin 7.8(L) 12.0 - 15.0 g/dL 10/08/2024 5:22 AM EDT [facility] ([facility]) Hematocrit 24.7(L) 36.0 - 45.0 % 10/08/2024 5:22 AM EDT [facility] ([facility]) Blood Venous blood specimen / Unknown Arterial Line / Unknown 10/08/2024 4:44 AM EDT 10/08/2024 5:10 AM EDT Ravinder Rodriguez MD LAB BLOOD ORDERABLES [facility] ([facility]) [address] [place] [address] * (ABNORMAL) Basic metabolic panel (10/08/2024 4:44 AM EDT) Sodium 140 136 - 145 mmol/L 10/08/2024 5:38 AM EDT [facility] ([facility]) Potassium 4.1 3.5 - 5.1 mmol/L 10/08/2024 5:38 AM EDT [facility] ([facility]) Chloride 109(H) 98 - 107 mmol/L 10/08/2024 5:38 AM EDT [facility] ([facility]) CO2 21 21 - 31 mmol/L 10/08/2024 5:38 AM EDT [facility] ([facility]) BUN 65(H) 7 - 25 mg/dL 10/08/2024 5:38 AM EDT [facility] ([facility]) Creatinine 1.78(H) 0.60 - 1.20 mg/dL 10/08/2024 5:38 AM EDT [facility] ([facility]) Glucose 212(H) 70 - 100 mg/dL 10/08/2024 5:38 AM EDT [facility] ([facility]) Calcium 8.3(L) 8.6 - 10.3 mg/dL 10/08/2024 5:38 AM EDT [facility] ([facility]) Anion Gap 14 7 - 20 mmol/L 10/08/2024 5:38 AM EDT [facility] ([facility]) eGFR 33.1(L) >60.0 mL/min/1. 73m*2 10/08/2024 5:38 AM EDT [facility] ([facility]) Comment:The [facility] s estimated glomerular filtration rate (eGFR) will no longer include consideration of race in its calculation. The [employer] s eGFR Task Force developed new recommendations for the estimation of the glomerular filtration rate in the [place] They recommend immediate implementation of the new equation refit without the race variable in all laboratories because the calculation does not include race. In addition to not including race in the calculation and reporting, it included diversity in its development, and has acceptable performance characteristics and potential consequences that do not disproportionately affect any one group of individuals. BUN/Creatinine Ratio 36.5 01/2025 5:38 AM EDT [facility] ([facility]) Blood Venous blood specimen / Unknown Arterial Line / Unknown 10/08/2024 4:44 AM EDT 10/08/2024 5:10 AM EDT Ravinder Rodriguez MD LAB BLOOD ORDERABLES Performing Organization Address City/[facility]/ZIP Co de Phone Number [facility]) [address] [place] [address] * (ABNORMAL) POCT glucose meter (10/08/2024 3:45 AM EDT) Glucose POC 251(H) 70 - 105 mg/dL 10/08/2024 4:01 AM EDT [facility]) Comment:[email or web address] Blood Capillary blood specimen / Unknown 10/08/2024 3:45 AM EDT 10/08/2024 4:01 AM EDT Narrative [facility]) - 10/08/2024 4:01 AM EDT Waived Testing in the ED is performed under the ED CLIA certificate #[id number]. Ravinder Rodriguez MD LAB BLOOD ORDERABLES Performing Organization Address City/[facility]/ZIP Co de Phone Number [facility]) [address] [place] [address] * (ABNORMAL) POCT glucose meter (10/08/2024 2:48 AM EDT) Glucose POC 256(H) 70 - 105 mg/dL 10/08/2024 3:00 AM EDT [facility]) Comment:[email or web address] Blood Capillary blood specimen / Unknown 10/08/2024 2:48 AM EDT 10/08/2024 3:00 AM EDT [facility] ([facility]) - 10/08/2024 3:00 AM EDT Waived Testing in the ED is performed under the ED CLIA certificate #[id number]. Ravinder Rodriguez MD LAB BLOOD ORDERABLES Performing Organization Address [facility]/ZIP Co de Phone Number [facility] ([facility]) [address] [place] [address] * (ABNORMAL) POCT glucose meter (10/08/2024 1:47 AM EDT) Glucose POC 203(H) 70 - 105 mg/dL 10/08/2024 2:02 AM EDT [facility] ([facility]) Comment:[email or web address] Blood Capillary blood specimen / Unknown 10/08/2024 1:47 AM EDT 10/08/2024 2:02 AM EDT [facility] ([facility]) - 10/08/2024 2:02 AM EDT Waived Testing in the ED is performed under the ED CLIA certificate #[id number]. Ravinder Rodriguez MD LAB BLOOD ORDERABLES Performing Organization Address [facility] Co de Phone Number [facility]) [address] [place] [address] * (ABNORMAL) POCT glucose meter (10/08/2024 1:15 AM EDT) Glucose POC 188(H) 70 - 105 mg/dL 10/08/2024 1:27 AM EDT [facility] ([facility]) Comment:[email or web address] Blood Capillary blood specimen / Unknown 10/08/2024 1:15 AM EDT 10/08/2024 1:27 AM EDT [facility] ([facility]) - 10/08/2024 1:27 AM EDT Waived Testing in the ED is performed under the ED CLIA certificate #[id number]. Ravinder Rodriguez MD LAB BLOOD ORDERABLES [facility] ([facility]) [address] [place] [address] * (ABNORMAL) POCT glucose meter (10/08/2024 12:38 AM EDT) Glucose POC 199(H) 70 - 105 mg/dL 10/08/2024 1:07 AM EDT [facility] ([facility]) Comment:[email or web address] Blood Capillary blood specimen / Unknown 10/08/2024 12:38 AM EDT 10/08/2024 1:07 AM EDT Narrative [facility] ([facility]) - 10/08/2024 1:07 AM EDT Waived Testing in the ED is performed under the ED CLIA certificate #[id number]. Ravinder Rodriguez MD LAB BLOOD ORDERABLES Performing Organization Address City/[facility]/ZIP Co de Phone Number [facility] ([facility]) [address] [place] [address] * (ABNORMAL) POCT glucose meter (10/07/2024 11:40 PM EDT) Glucose POC 263(H) 70 - 105 mg/dL 10/07/2024 11:54 PM EDT [facility] ([facility]) Comment: [email or web address] Critical Value Noted Blood Capillary blood specimen / Unknown 10/07/2024 11:40 PM EDT 10/07/2024 11:54 PM EDT Narrative [facility] ([facility]) - 10/07/2024 11:54 PM EDT Waived Testing in the ED is performed under the ED CLIA certificate #[id number]. Ravinder Rodriguez MD LAB BLOOD ORDERABLES [facility] ([facility]) [address] [place] [address] * (ABNORMAL) POCT glucose meter (10/07/2024 10:35 PM EDT) Glucose POC 279(H) 70 - 105 mg/dL 10/07/2024 10:47 PM EDT [facility] ([facility]) Comment:[email or web address] Blood Capillary blood specimen / Unknown 10/07/2024 10:35 PM EDT 10/07/2024 10:47 PM EDT [facility] ([facility]) - 10/07/2024 10:47 PM EDT Waived Testing in the ED is performed under the ED CLIA certificate #[id number]. Ravinder Rodriguez MD LAB BLOOD ORDERABLES [facility]) [address] [place] [address] * (ABNORMAL) POCT glucose meter (10/07/2024 9:32 PM EDT) Glucose POC 289(H) 70 - 105 mg/dL 10/07/2024 9:47 PM EDT [facility] ([facility]) Comment:[email or web address] Blood Capillary blood specimen / Unknown 10/07/2024 9:32 PM EDT 10/07/2024 9:47 PM EDT [facility] ([facility]) - 10/07/2024 9:47 PM EDT Waived Testing in the ED is performed under the ED CLIA certificate #[id number]. Ravinder Rodriguez MD LAB BLOOD ORDERABLES [facility] ([facility]) [address], [place] [id number] * (ABNORMAL) POCT glucose meter (10/07/2024 8:33 PM EDT) Glucose POC 277(H) 70 - 105 mg/dL 10/07/2024 8:50 PM EDT [facility] ([facility]) Comment:[email or web address] Blood Capillary blood specimen / Unknown 10/07/2024 8:33 PM EDT 10/07/2024 8:50 PM EDT [facility] ([facility]) - 10/07/2024 8:50 PM EDT Waived Testing in the ED is performed under the ED CLIA certificate #[id number]. Ravinder Rodriguez MD LAB BLOOD ORDERABLES Performing Organization Address [facility]/ZIP Co de Phone Number [facility] ([facility]) [address] [place] [address] * (ABNORMAL) POCT glucose meter (10/07/2024 7:30 PM EDT) Glucose POC 319(H) 70 - 105 mg/dL 10/07/2024 7:43 PM EDT [facility] ([facility]) Comment:[email or web address] Blood Capillary blood specimen / Unknown 10/07/2024 7:30 PM EDT 10/07/2024 7:43 PM EDT [facility] ([facility]) - 10/07/2024 7:43 PM EDT Waived Testing in the ED is performed under the ED CLIA certificate #[id number]. Ravinder Rodriguez MD LAB BLOOD ORDERABLES Performing Organization Address [facility] Co de Phone Number [facility] ([facility]) [address] [place] [address] * (ABNORMAL) POCT glucose meter (10/07/2024 6:33 PM EDT) Glucose POC 362(H) 70 - 105 mg/dL 10/07/2024 6:48 PM EDT [facility] ([facility]) Comment:[email or web address] Blood Capillary blood specimen / Unknown 10/07/2024 6:33 PM EDT 10/07/2024 6:48 PM EDT [facility] ([facility]) - 10/07/2024 6:48 PM EDT Waived Testing in the ED is performed under the ED CLIA certificate #[id number]. Ravinder Rodriguez MD LAB BLOOD ORDERABLES [facility] ([facility]) [address] [place] [address] * (ABNORMAL) POCT glucose meter (10/07/2024 5:41 PM EDT) Glucose POC 375(H) 70 - 105 mg/dL 10/07/2024 6:02 PM EDT [facility] ([facility]) Comment:[email or web address] Blood Capillary blood specimen / Unknown 10/07/2024 5:41 PM EDT 10/07/2024 6:02 PM EDT Narrative [facility] ([facility]) - 10/07/2024 6:02 PM EDT Waived Testing in the ED is performed under the ED CLIA certificate #[id number]. Ravinder Rodriguez MD LAB BLOOD ORDERABLES Performing Organization Address City/[facility]/ZIP Co de Phone Number [facility] ([facility]) [address] [place] [address] * (ABNORMAL) POCT glucose meter (10/07/2024 4:40 PM EDT) Glucose POC 406(H) 70 - 105 mg/dL 10/07/2024 4:53 PM EDT [facility] ([facility]) Comment:[email or web address] Blood Capillary blood specimen / Unknown 10/07/2024 4:40 PM EDT 10/07/2024 4:53 PM EDT Narrative [facility] ([facility]) - 10/07/2024 4:53 PM EDT Waived Testing in the ED is performed under the ED CLIA certificate #[id number]. Ravinder Rodriguez MD LAB BLOOD ORDERABLES [facility] ([facility]) [address] [place] [address] * Light Green Top (10/07/2024 4:08 PM EDT) [facility] Extra Tube Hold for add-ons. 10/07/2024 6:01 PM EDT [facility] ([facility]) Comment:Auto resulted. Blood Venous blood specimen / Unknown 10/07/2024 4:08 PM EDT 10/07/2024 4:22 PM EDT Ravinder Rodriguez MD LAB BLOOD ORDERABLES Performing Organization Address City/[facility]/ZIP Co de Phone Number [facility]) [address] [place] [address] * Anti-Xa (Heparin Level) (10/07/2024 4:08 PM EDT) [facility] Anti-Xa (Heparin) 0.65 0.3 - 0.7 IU/mL 10/07/2024 4:47 PM EDT [facility] ([facility]) Comment:Rivaroxaban and Apix aban will interfere with the anti Xa assay used to monitor UFH and LMWH. Blood Venous blood specimen / Unknown Arterial Line / Unknown 10/07/2024 4:08 PM EDT 10/07/2024 4:22 PM EDT Silver Cain MD LAB BLOOD ORDERABLES Performing Organization Address City/[facility]/ZIP Co de Phone Number [facility]) [address] [place] [address] * (ABNORMAL) POCT glucose meter (10/07/2024 3:38 PM EDT) [facility] Glucose POC 330(H) 70 - 105 mg/dL 10/07/2024 3:49 PM EDT [facility] ([facility]) Comment:[email or web address] Blood Capillary blood specimen / Unknown 10/07/2024 3:38 PM EDT 10/07/2024 3:49 PM EDT Narrative [facility] ([facility]) - 10/07/2024 3:49 PM EDT Waived Testing in the ED is performed under the ED CLIA certificate #[id number]. Ravinder Rodriguez MD LAB BLOOD ORDERABLES [facility] ([facility]) [address] [place] [address] * COMPLETE ECHO (TTE) W/ IMAGING AGENT (10/07/2024 3:02 PM EDT) Anatomical Region Laterality Modality Other 10/07/2024 2:33 PM EDT Narrative 10/07/2024 4:13 PM EDT 1 1 [facility] Heart Station [address] [place] [address] [phone] (fax) Echocardiogram-[facility] Name: MARY JANE SCHAEFFER Study Date: 10/07/2024 02:33 PM B/P: 137 mmHg/53 mmHg HR: 77 bpm Date of : 1970 Location: [facility] Height: 63 in. Age: 54 year(s) Patient Room: 3120 Weight: 270 lb. Gender: Female Patient Status: InPt BSA: 2.2 m2 Indication: Angina, Shortness of Breath, elevated troponin Apical images are off-axis Examination: Echocardiogram (Complete), Lumason Contrast Image Quality: Poor sound transmission in apical views Patient Consent: Procedure explained to patient Exam Details Contrast: I.V. dose of Lumason Conclusions Left Ventricle: The left ventricle is normal size. Global left ventricular systolic function is normal. EF range is estimated at 60 % -65 %. Left ventricular wall thickness is mildly increased. The septum is abnormal, consistent with RV volume and/or pressure overload. Unable to assess diastolic dysfunction. Right Ventricle: The right ventricle appears enlarged. Right ventricular systolic function appears reduced. Unable to assess right sided pressures due to lack of measurable tricuspid regurgitation. Left Atrium: Left atrium is poorly visualized. Right Atrium: Right atrium is poorly visualized. Pericardium: There is a small pericardial effusion. Overall Conclusions: Due to suboptimal imaging Lumason contrast was administered for opacification and better delineation of endocardial borders. No significant valvular abnormalities Measurements Left Ventricle Label Value Normal Value LVOTd 1.9 cm (18cm - 20cm) LVDd, 2D 4.6 cm (3.9cm - 5.3cm) LVDs, 2D 3.23 cm (2.1cm - 4cm) IVSd, 2D 1.25 cm (0.6cm - 1.1cm) LVPWd, 2D 1.21 cm (0.6cm - 0.9cm) LV Mass, 2D ASE 212.39 g LV Mass Index, 2D ASE 96.5 g/m?? (44g/m?? - 88.4g/m??) RWT, MM 0.53 (0 - 0.42) LVSVI, 2D 25 ml/m2 Left Atrium Label Value Normal Value LADs, 2D 3.6 cm (2.7cm - 3.8cm) Mitral Valve Label Value Normal Value MV E Vmax 1.02 m/s MV A Vmax 0.6 m/s MV E/A 1.7 MV E/E' lateral 20.8 MV E' lateral 0.05 m/s Aorta Label Value Normal Value AoRoot, 2D 2.7 cm (1.4cm - 3.8cm) Great Vessels Label Value Normal Value IVC 2.4 cm (1.2cm - 2.3cm) Valvular Assessment LVOT 0.7 - 1.1 m/sec Aortic Valve 1.0 - 1.7 m/sec Mitral Valve 0.6 - 1.3 m/sec Tricuspid Valve 0.3 - 0.7 m/sec Pulmonic Valve 0.6 - 0.9 m/sec Regurgitation No Trivial Trivial Stenosis No No No Max Velocity 1.02 m/sec Findings Left Ventricle: The left ventricle is normal size. Global left ventricular systolic function is normal. EF range is estimated at 60 % -65 %. Left ventricular wall thickness is mildly increased. The septum is abnormal, consistent with RV volume and/or pressure overload. Unable to assess diastolic dysfunction. Left atrial filling pressure is elevated. Right Ventricle: Right ventricle is poorly visualized. The right ventricle appears enlarged. Right ventricular systolic function appears reduced. Unable to assess right sided pressures due to lack of measurable tricuspid regurgitation. Left Atrium: Left atrium is poorly visualized. Right Atrium: Right atrium is poorly visualized. Mitral Valve: There is nonspecific thickening of the mitral valve leaflet. Trivial mitral regurgitation. No mitral valve stenosis. Aortic Valve: The aortic valve is normal. No aortic valve regurgitation. No aortic valve stenosis. The aortic valve is trileaflet. Tricuspid Valve: Normal tricuspid valve. Trivial tricuspid regurgitation. No tricuspid valve stenosis. Pulmonic Valve: Pulmonic valve is poorly visualized. Aorta: The aortic root exhibits normal size. Great Vessels: IVC: The IVC is dilated. There is no inspiratory collapse of the IVC. Pericardium: There is a small pericardial effusion. Procedure Staff Reading Group: [facility] Referring Physician: RAVINDER RODRIGUEZ Blood Bank Laboratory Professional: ERMIAS Mckee Ordering Physician: JAKE BUCKLEY Procedure Note Rebeca Valadez MD - 10/07/2024 1 1 [facility] Heart Station [address] [place] [address] [phone] (fax) Echocardiogram-[facility] Name: MARY JANE SANTOS Study Date: 10/07/2024 02:33 PM B/P: 137 mmHg/53 mmHg HR: 77 bpm Date of : 1970 Location: [facility] Height: 63 in. Age: 54 year(s) Patient Room: 3120 Weight: 270 lb. Gender: Female Patient Status: InPt BSA: 2.2 m2 Indication: Angina, Shortness of Breath, elevated troponin Apical images are off-axis Examination: Echocardiogram (Complete), Lumason Contrast Image Quality: Poor sound transmission in apical views Patient Consent: Procedure explained to patient Exam Details Contrast: I.V. dose of Lumason Conclusions Left Ventricle: The left ventricle is normal size. Global left ventricular systolic function is normal. EF range is estimated at 60 % -65 %. Left ventricular wall thickness is mildly increased. The septum is abnormal, consistent with RV volume and/or pressure overload. Unable to assess diastolic dysfunction. Right Ventricle: The right ventricle appears enlarged. Right ventricular systolic function appears reduced. Unable to assess right sided pressures due to lack of measurable tricuspid regurgitation. Left Atrium: Left atrium is poorly visualized. Right Atrium: Right atrium is poorly visualized. Pericardium: There is a small pericardial effusion. Overall Conclusions: Due to suboptimal imaging Lumason contrast was administered for opacification and better delineation of endocardial borders. No significant valvular abnormalities Measurements Left Ventricle Label Value Normal Value LVOTd 1.9 cm (18cm - 20cm) LVDd, 2D 4.6 cm (3.9cm - 5.3cm) LVDs, 2D 3.23 cm (2.1cm - 4cm) IVSd, 2D 1.25 cm (0.6cm - 1.1cm) LVPWd, 2D 1.21 cm (0.6cm - 0.9cm) LV Mass, 2D ASE 212.39 g LV Mass Index, 2D ASE 96.5 g/m?? (44g/m?? - 88.4g/m??) RWT, MM 0.53 (0 - 0.42) LVSVI, 2D 25 ml/m2 Left Atrium Label Value Normal Value LADs, 2D 3.6 cm (2.7cm - 3.8cm) Mitral Valve Label Value Normal Value MV E Vmax 1.02 m/s MV A Vmax 0.6 m/s MV E/A 1.7 MV E/E' lateral 20.8 MV E' lateral 0.05 m/s Aorta Label Value Normal Value AoRoot, 2D 2.7 cm (1.4cm - 3.8cm) Great Vessels Label Value Normal Value IVC 2.4 cm (1.2cm - 2.3cm) Valvular Assessment LVOT 0.7 - 1.1 m/sec Aortic Valve 1.0 - 1.7 m/sec Mitral Valve 0.6 - 1.3 m/sec Tricuspid Valve 0.3 - 0.7 m/sec Pulmonic Valve 0.6 - 0.9 m/sec Regurgitation No Trivial Trivial Stenosis No No No Max Velocity 1.02 m/sec Findings Left Ventricle: The left ventricle is normal size. Global left ventricular systolic function is normal. EF range is estimated at 60 % -65 %. Left ventricular wall thickness is mildly increased. The septum is abnormal, consistent with RV volume and/or pressure overload. Unable to assess diastolic dysfunction. Left atrial filling pressure is elevated. Right Ventricle: Right ventricle is poorly visualized. The right ventricle appears enlarged. Right ventricular systolic function appears reduced. Unable to assess right sided pressures due to lack of measurable tricuspid regurgitation. Left Atrium: Left atrium is poorly visualized. Right Atrium: Right atrium is poorly visualized. Mitral Valve: There is nonspecific thickening of the mitral valve leaflet. Trivial mitral regurgitation. No mitral valve stenosis. Aortic Valve: The aortic valve is normal. No aortic valve regurgitation. No aortic valve stenosis. The aortic valve is trileaflet. Tricuspid Valve: Normal tricuspid valve. Trivial tricuspid regurgitation. No tricuspid valve stenosis. Pulmonic Valve: Pulmonic valve is poorly visualized. Aorta: The aortic root exhibits normal size. Great Vessels: IVC: The IVC is dilated. There is no inspiratory collapse of the IVC. Pericardium: There is a small pericardial effusion. Procedure Staff Reading Group: [facility] Referring Physician: RAVINDER RODRIGUEZ Blood Bank Laboratory Professional: Hoa Ornelas [facility] Ordering Physician: JAKE BUCKLEY Jake Buckley MD CV ECHO PROCEDURES * (ABNORMAL) POCT glucose meter (10/07/2024 2:15 PM EDT) Glucose POC 374(H) 70 - 105 mg/dL 10/07/2024 2:25 PM EDT [facility] ([facility]) Comment:[email or web address] Blood Capillary blood specimen / Unknown 10/07/2024 2:15 PM EDT 10/07/2024 2:25 PM EDT [facility] ([facility]) - 10/07/2024 2:25 PM EDT Waived Testing in the ED is performed under the ED CLIA certificate #[id number]. Ravinder Rodriguez MD LAB BLOOD ORDERABLES [facility] ([facility]) [address] [place] [address] * (ABNORMAL) POCT glucose meter (10/07/2024 1:35 PM EDT) Glucose POC 401(H) 70 - 105 mg/dL 10/07/2024 1:45 PM EDT [facility] ([facility]) Comment:[email or web address] Blood Capillary blood specimen / Unknown 10/07/2024 1:35 PM EDT 10/07/2024 1:45 PM EDT [facility] ([facility]) - 10/07/2024 1:45 PM EDT Waived Testing in the ED is performed under the ED CLIA certificate #[id number]. Ravinder Rodriguez MD LAB BLOOD ORDERABLES [facility] ([facility]) [address] [place] [address] * (ABNORMAL) POCT glucose meter (10/07/2024 12:25 PM EDT) Glucose POC 447(H) 70 - 105 mg/dL 10/07/2024 12:36 PM EDT [facility] ([facility]) Comment:[email or web address] Blood Capillary blood specimen / Unknown 10/07/2024 12:25 PM EDT 10/07/2024 12:36 PM EDT Narrative [facility] ([facility]) - 10/07/2024 12:36 PM EDT Waived Testing in the ED is performed under the ED CLIA certificate #[id number]. Ravinder Rodriguez MD LAB BLOOD ORDERABLES Performing Organization Address [facility]/ZIP Co de Phone Number [facility] ([facility]) [address] [place] [address] * (ABNORMAL) Lipid panel (10/07/2024 12:04 PM EDT) Triglycerides 221(H) <150 mg/dL 10/07/2024 1:20 PM EDT [facility] ([facility]) Comment: TRIGLYCERIDE REFERENCE RANGE: 20 YEARS AND OLDER CARDIOVASCULAR RISK LESS THAN 150 mg/dL LOW RISK 150 TO 199 mg/dL BORDERLINE RISK 200 mg/dL AND GREATER HIGH RISK Cholesterol 147 120 - 200 mg/dL 10/07/2024 1:20 PM EDT [facility] ([facility]) LDL Calculated 77 0 - 160 mg/dL 10/07/2024 1:20 PM EDT [facility] ([facility]) HDL 26 23 - 92 mg/dL 10/07/2024 1:20 PM EDT [facility] ([facility]) Non HDL Cholesterol 121 10/07/2024 1:20 PM EDT [facility] ([facility]) Total VLDL-C 44(H) 0 - 40 mg/dL 10/07/2024 1:20 PM EDT [facility] [facility]) Cholesterol/HDL Ratio 5.7 mg/dL 10/07/2024 1:20 PM EDT [facility] ([facility]) Blood Venous blood specimen / Unknown Arterial Line / Unknown 10/07/2024 12:04 PM EDT 10/07/2024 12:37 PM EDT Jake Buckley MD LAB BLOOD ORDERABLES [facility]) [address] [place] [address] * (ABNORMAL) High Sensitivity Troponin I (10/07/2024 12:04 PM EDT) [facility] High Sensitivity Troponin I 53(HH) <15 ng/L 10/07/2024 1:23 PM EDT [facility] ([facility]) Blood Venous blood specimen / Unknown Arterial Line / Unknown 10/07/2024 12:04 PM EDT 10/07/2024 12:37 PM EDT Jake Buckley MD LAB BLOOD ORDERABLES Performing Organization Address City/[facility]/ZIP Co de Phone Number [facility]) [address] [place] [address] * Anti-Xa (Heparin Level) (10/07/2024 12:04 PM EDT) Anti-Xa (Heparin) 0.57 0.3 - 0.7 IU/mL 10/07/2024 12:59 PM EDT [facility]) Comment:Rivaroxaban and Apix aban will interfere with the anti Xa assay used to monitor UFH and LMWH. Blood Venous blood specimen / Unknown Arterial Line / Unknown 10/07/2024 12:04 PM EDT 10/07/2024 12:31 PM EDT Silver Cain MD LAB BLOOD ORDERABLES [facility] ([facility]) [address] [place] [address] * (ABNORMAL) POCT glucose meter (10/07/2024 10:44 AM EDT) Glucose POC 428(H) 70 - 105 mg/dL 10/07/2024 10:54 AM EDT [facility] ([facility]) Comment:[email or web address] Blood Capillary blood specimen / Unknown 10/07/2024 10:44 AM EDT 10/07/2024 10:54 AM EDT Narrative [facility] ([facility]) - 10/07/2024 10:54 AM EDT Waived Testing in the ED is performed under the ED CLIA certificate #[id number]. Ravinder Rodriguez MD LAB BLOOD ORDERABLES Performing Organization Address City/[facility]/ZIP Co de Phone Number [facility] ([facility]) [address] [place] [address] * XR chest 1 view (10/07/2024 10:27 AM EDT) Anatomical Region Laterality Modality Chest Computed Radiogr aphy 10/07/2024 10:3 5 AM EDT Impressions 10/07/2024 10:35 AM EDT Extensive pulmonary infiltrates consistent with edema and/or multifocal pneumonia. Electronically signed: Arthur Shepherd. Narrative 10/07/2024 10:35 AM EDT XR CHEST 1 VIEW 10/07/2024 9:43 AM CLINICAL INDICATIONS: Pneumonia COMPARISON: None FINDINGS: Bilateral pulmonary infiltrates. Small effusions and atelectasis. No pneumothorax. Heart size stable. Procedure Note Arthur Shepherd MD - 10/07/2024 XR CHEST 1 VIEW 10/07/2024 9:43 AM CLINICAL INDICATIONS: Pneumonia COMPARISON: None FINDINGS: Bilateral pulmonary infiltrates. Small effusions and atelectasis. No pneumothorax. Heart size stable. IMPRESSION: Extensive pulmonary infiltrates consistent with edema and/or multifocal pneumonia. Electronically signed: Arthur Chu Ravinder Rodriguez MD IMG XR PROCEDURES * ECG 12 lead (10/07/2024 10:26 AM EDT) Ventricular Rate 78 BPM GE MUSE Atrial Rate 78 BPM GE MUSE NE Interval 138 ms GE MUSE QRS DURATION 88 ms GE MUSE QT Interval 398 ms GE MUSE QTC CALCULATION(BAZE TT) 453 ms GE MUSE P [place] 62 degrees GE MUSE R-[place] 83 degrees GE MUSE T Wave [place] 42 degrees GE MUSE 10/07/2024 10:0 5 AM EDT 10/07/2024 12:01 PM EDT Impressions GE MUSE - 10/07/2024 12:01 PM EDT Normal sinus rhythm Nonspecific T wave abnormality Abnormal ECG When compared with ECG of 09-NOV-2020 07:35, Nonspecific T wave abnormality now evident in Anterior leads Confirmed by Steve FABIAN, L.S. (2) on 10/07/2024 12:01:23 PM Narrative Procedure Note Micehlle Fabian MD - 10/07/2024 IMPRESSION: Normal sinus rhythm Nonspecific T wave abnormality Abnormal ECG When compared with ECG of 09-NOV-2020 07:35, Nonspecific T wave abnormality now evident in Anterior leads Confirmed by Steve FABIAN, L.S. (2) on 10/07/2024 12:01:23 PM Samer Katherine Buckley MD ECG ORDERABLES GE MUSE * (ABNORMAL) POCT glucose meter (10/07/2024 9:41 AM EDT) Glucose POC 470(H) 70 - 105 mg/dL 10/07/2024 9:51 AM EDT [facility] ([facility]) Comment:[email or web address] Blood Capillary blood specimen / Unknown 10/07/2024 9:41 AM EDT 10/07/2024 9:51 AM EDT Narrative [facility] ([facility]) - 10/07/2024 9:51 AM EDT Waived Testing in the ED is performed under the ED CLIA certificate #[id number]. Ravidner Rodriguez MD LAB BLOOD ORDERABLES [facility] ([facility]) [address] [place] [address] * (ABNORMAL) POCT glucose meter (10/07/2024 8:47 AM EDT) Glucose POC 476(H) 70 - 105 mg/dL 10/07/2024 8:58 AM EDT [facility] ([facility]) Comment:[email or web address] Blood Capillary blood specimen / Unknown 10/07/2024 8:47 AM EDT 10/07/2024 8:58 AM EDT Narrative [facility] ([facility]) - 10/07/2024 8:58 AM EDT Waived Testing in the ED is performed under the ED CLIA certificate #[id number]. Ravinder Rodriguez MD LAB BLOOD ORDERABLES Performing Organization Address City/[facility]/ZIP Co de Phone Number [facility] ([facility]) [address] [place] [address] * (ABNORMAL) POCT glucose meter (10/07/2024 7:40 AM EDT) Glucose POC 511(HH) 70 - 105 mg/dL 10/07/2024 11:42 AM EDT [facility] ([facility]) Comment: [email or web address] Critical Value Noted Blood Capillary blood specimen / Unknown 10/07/2024 7:40 AM EDT 10/07/2024 11:42 AM EDT Narrative [facility] ([facility]) - 10/07/2024 11:42 AM EDT Waived Testing in the ED is performed under the ED CLIA certificate #[id number]. Ravinder Rodriguez MD LAB BLOOD ORDERABLES [facility] ([facility]) [address] [place] [address] * (ABNORMAL) POCT glucose meter (10/07/2024 6:34 AM EDT) Pathologist [facility] Glucose POC 555(HH) 70 - 105 mg/dL 10/07/2024 7:22 AM EDT [facility] ([facility]) Comment:[email or web address] Blood Capillary blood specimen / Unknown 10/07/2024 6:34 AM EDT 10/07/2024 7:22 AM EDT Narrative [facility] ([facility]) - 10/07/2024 7:22 AM EDT Waived Testing in the ED is performed under the ED CLIA certificate #[id number]. Zurdo Perera MD LAB BLOOD ORDERABLES [facility] ([facility]) [address] [place] [address] * (ABNORMAL) CBC (10/07/2024 6:06 AM EDT) [facility] Auto WBC 9.59 4.00 - 10.60 10*3/uL 10/07/2024 7:04 AM EDT [facility] ([facility]) RBC 2.72(L) 3.80 - 5.00 10*6/uL 10/07/2024 7:04 AM EDT [facility] ([facility]) Hemoglobin 8.4(L) 12.0 - 15.0 g/dL 10/07/2024 7:04 AM EDT [facility] ([facility]) Hematocrit 27.0(L) 36.0 - 45.0 % 10/07/2024 7:04 AM EDT [facility] ([facility]) MCV 99.3(H) 82.0 - 98.0 fL 10/07/2024 7:04 AM EDT [facility] ([facility]) MCH 30.9 27.0 - 33.0 pg 10/07/2024 7:04 AM EDT [facility] ([facility]) MCHC 31.1(L) 32.0 - 35.0 g/dL 10/07/2024 7:04 AM EDT [facility] ([facility]) RDW 15.0 11.5 - 15.0 % 10/07/2024 7:04 AM EDT [facility] ([facility]) Platelets 178 150 - 400 10*3/uL 10/07/2024 7:04 AM EDT [facility] ([facility]) Immature Platelet Fraction % 6.6(H) 0.8 - 6.3 % 10/07/2024 7:04 AM EDT [facility] ([facility]) Blood Venous blood specimen / Unknown Arterial Line / Unknown 10/07/2024 6:06 AM EDT 10/07/2024 6:10 AM EDT Silver Ant WALKER LAB BLOOD ORDERABLES [facility]) [address] [place] [address] * Anti-Xa (Heparin Level) (10/07/2024 6:06 AM EDT) Pathologist [facility] Anti-Xa (Heparin) 0.40 0.3 - 0.7 IU/mL 10/07/2024 6:36 AM EDT [facility] ([facility]) Comment:Rivaroxaban and Apix aban will interfere with the anti Xa assay used to monitor UFH and LMWH. Blood Venous blood specimen / Unknown Arterial Line / Unknown 10/07/2024 6:06 AM EDT 10/07/2024 6:09 AM EDT Silver Ant WALKER LAB BLOOD ORDERABLES [facility]) [address] [place] [address] * (ABNORMAL) High Sensitivity Troponin I (10/07/2024 6:00 AM EDT) Pathologist [facility] High Sensitivity Troponin I 56(HH) <15 ng/L 10/07/2024 9:57 AM EDT [facility] ([facility]) Blood Venous blood specimen / Unknown 10/07/2024 6:00 AM EDT 10/07/2024 6:10 AM EDT Ravinder Rodriguez MD LAB BLOOD ORDERABLES Performing Organization Address City/[facility]/ZIP Co de Phone Number [facility]) [address] [place] [address] * Light Green Top (10/07/2024 6:00 AM EDT) Extra Tube Hold for add-ons. 10/07/2024 8:01 AM EDT [facility] ([facility]) Comment:Auto resulted. Blood Venous blood specimen / Unknown 10/07/2024 6:00 AM EDT 10/07/2024 6:10 AM EDT Zurdo Perera MD LAB BLOOD ORDERABLES Performing Organization Address City/[facility] Co de Phone Number [facility]) [address] [place] [address] * Red Top (10/07/2024 6:00 AM EDT) Extra Tube Hold for add-ons. 10/07/2024 8:01 AM EDT [facility] ([facility]) Comment:Auto resulted. Blood Venous blood specimen / Unknown 10/07/2024 6:00 AM EDT 10/07/2024 6:10 AM EDT Zurdo Perera MD LAB BLOOD ORDERABLES Performing Organization Address City/[facility] Co de Phone Number [facility]) [address] [place] [address] * (ABNORMAL) POCT glucose meter (10/07/2024 5:34 AM EDT) Glucose POC 523(HH) 70 - 105 mg/dL 10/07/2024 7:22 AM EDT [facility] ([facility]) Comment:[email or web address] Blood Capillary blood specimen / Unknown 10/07/2024 5:34 AM EDT 10/07/2024 7:22 AM EDT [facility] ([facility]) - 10/07/2024 7:22 AM EDT Waived Testing in the ED is performed under the ED CLIA certificate #[id number]. Zurdo Perera MD LAB BLOOD ORDERABLES Performing Organization Address [facility]/ZIP Co de Phone Number [facility] ([facility]) [address] [place] [address] * (ABNORMAL) POCT glucose meter (10/07/2024 4:36 AM EDT) Glucose POC 589(HH) 70 - 105 mg/dL 10/07/2024 5:33 AM EDT [facility] ([facility]) Comment: [email or web address] Critical Value Noted Blood Capillary blood specimen / Unknown 10/07/2024 4:36 AM EDT 10/07/2024 5:33 AM EDT [facility] ([facility]) - 10/07/2024 5:33 AM EDT Waived Testing in the ED is performed under the ED CLIA certificate #[id number]. Zurdo Perera MD LAB BLOOD ORDERABLES Performing Organization Address [facility] Co de Phone Number [facility] ([facility]) [address] [place] [address] * (ABNORMAL) POCT glucose meter (10/07/2024 3:34 AM EDT) Glucose POC >600(HH) 70 - 105 mg/dL 10/07/2024 5:33 AM EDT [facility] ([facility]) Comment: [email or web address] Critical Value Noted Blood Capillary blood specimen / Unknown 10/07/2024 3:34 AM EDT 10/07/2024 5:33 AM EDT [facility] ([facility]) - 10/07/2024 5:33 AM EDT Waived Testing in the ED is performed under the ED CLIA certificate #[id number]. Zurdo Perera MD LAB BLOOD ORDERABLES Performing Organization Address City/[facility] Co de Phone Number [facility]) [address], [place] [id number] * (ABNORMAL) Anti-Xa (Heparin Level) (10/07/2024 1:01 AM EDT) Anti-Xa (Heparin) <0.10(LL) 0.3 - 0.7 IU/mL 10/07/2024 1:58 AM EDT [facility] ([facility]) Comment:Rivaroxaban and Apix aban will interfere with the anti Xa assay used to monitor UFH and LMWH. Blood Venous blood specimen / Unknown Arterial Line / Unknown 10/07/2024 1:01 AM EDT 10/07/2024 1:20 AM EDT Zurdo Perera MD LAB BLOOD ORDERABLES Performing Organization Address [facility] Co de Phone Number [facility]) [address] [place] [address] * (ABNORMAL) APTT (10/07/2024 1:01 AM EDT) aPTT 46.7(H) 25.0 - 35.0 Seconds 10/07/2024 1:47 AM EDT [facility] ([facility]) Comment:Clinical significanc e of the APTT is questionable in the presence of heparin. Blood Venous blood specimen / Unknown Arterial Line / Unknown 10/07/2024 1:01 AM EDT 10/07/2024 1:20 AM EDT Zurdo Perera MD LAB BLOOD ORDERABLES Performing Organization Address City/[facility] Co de Phone Number [facility]) [address], [place] [id number] * (ABNORMAL) Basic metabolic panel (10/07/2024 1:01 AM EDT) Sodium 136 136 - 145 mmol/L 10/07/2024 2:20 AM [facility] ([facility]) Potassium 5.1 3.5 - 5.1 mmol/L 10/07/2024 2:20 AM [facility] ([facility]) Chloride 102 98 - 107 mmol/L 10/07/2024 2:20 AM [facility] ([facility]) CO2 9(LL) 21 - 31 mmol/L 10/07/2024 2:20 AM [facility] ([facility]) BUN 41(H) 7 - 25 mg/dL 10/07/2024 2:20 AM [facility] ([facility]) Creatinine 1.70(H) 0.60 - 1.20 mg/dL 10/07/2024 2:20 AM [facility] ([facility]) Glucose 649(HH) 70 - 100 mg/dL 10/07/2024 2:20 AM [facility] ([facility]) Calcium 8.6 8.6 - 10.3 mg/dL 10/07/2024 2:20 AM [facility] ([facility]) Anion Gap 30(H) 7 - 20 mmol/L 10/07/2024 2:20 AM [facility] ([facility]) eGFR 35.0(L) >60.0 mL/min/1. 73m*2 10/07/2024 2:20 AM [facility] ([facility]) Comment:The [facility]'s estimated glomerular filtration rate (eGFR) will no longer include consideration of race in its calculation. The [employer]'s eGFR Task Force developed new recommendations for the estimation of the glomerular filtration rate in the [place] They recommend immediate implementation of the new equation refit without the race variable in all laboratories because the calculation does not include race. In addition to not including race in the calculation and reporting, it included diversity in its development, and has acceptable performance characteristics and potential consequences that do not disproportionately affect any one group of individuals. BUN/Creatinine Ratio 24.1 05/0 12/2024 2:20 AM [facility] ([facility]) Blood Venous blood specimen / Unknown Arterial Line / Unknown 10/07/2024 1:01 AM EDT 10/07/2024 1:22 AM EDT Zurdo Perera MD LAB BLOOD ORDERABLES [facility] ([facility]) [place] [address] * Blood culture, peripheral #2 (10/07/2024 12:54 AM EDT) Blood Culture No growth at 5 days POONAM 10/12/2024 2:01 AM EDT [facility] ([facility]) Blood Venous blood specimen / Unknown Venipuncture / Unknown 10/07/2024 12:54 AM EDT 10/07/2024 1:20 AM EDT Silver Cain MD LAB MICROBIOLOGY - G ENERAL ORDERABLES Performing Organization Address City/[facility]/ZIP Co de Phone Number [facility] ([facility]) [address] [place] [address] * Blood culture, peripheral #1 (10/07/2024 12:54 AM EDT) Blood Culture No growth at 5 days POONAM 10/12/2024 2:01 AM EDT [facility] ([facility]) Blood Venous blood specimen / Unknown Venipuncture / Unknown 10/07/2024 12:54 AM EDT 10/07/2024 1:21 AM EDT Silverfelicita Cain MD LAB MICROBIOLOGY - G ENERAL ORDERABLES [facility] ([facility]) [address] [place] [address] * Lactic Acid with 4 hour reflex (10/07/2024 12:54 AM EDT) Lactate 1.1 0.5 - 2.2 mmol/L 10/07/2024 1:50 AM EDT [facility] ([facility]) Blood Venous blood specimen / Unknown Arterial Line / Unknown 10/07/2024 12:54 AM EDT 10/07/2024 1:19 AM EDT Silverfelicita Cain MD LAB BLOOD ORDERABLES [facility] ([facility]) [address] [place] [address] * (ABNORMAL) POCT glucose meter (10/07/2024 12:11 AM EDT) Glucose POC >600(HH) 70 - 105 mg/dL 10/07/2024 5:33 AM EDT [facility] ([facility]) Comment: [email or web address] Critical Value Noted Blood Capillary blood specimen / Unknown 10/07/2024 12:11 AM EDT 10/07/2024 5:33 AM EDT Narrative [facility] ([facility]) - 10/07/2024 5:33 AM EDT Waived Testing in the ED is performed under the ED CLIA certificate #[id number]. Zurdo Perera MD LAB BLOOD ORDERABLES Performing Organization Address [facility]/ZIP Co de Phone Number [facility] ([facility]) [address] [place] [address] * Lactic acid with 4 hour reflex (10/06/2024 11:29 PM EDT) [facility] Lactate 1.2 0.5 - 2.2 mmol/L 10/07/2024 12:27 AM EDT [facility] ([facility]) Blood Venous blood specimen / Unknown Arterial Line / Unknown 10/06/2024 11:29 PM EDT 10/06/2024 11:41 PM EDT Silver Cain MD LAB BLOOD ORDERABLES Performing Organization Address City/[facility]/ZIP Co de Phone Number [facility] ([facility]) [address] [place] [address] * (ABNORMAL) Hemoglobin A1c (10/06/2024 10:35 PM EDT) Hemoglobin A1C 9.0(H) 4.0 - 6.0 % 10/08/2024 12:31 PM EDT [facility] ([facility]) Estimated Average Glucose 212 mg/dL 10/08/2024 12:31 PM EDT [facility] ([facility]) Blood Venous blood specimen / Unknown Arterial Line / Unknown 10/06/2024 10:35 PM EDT 10/06/2024 10:53 PM EDT Silver Ant WALKER LAB BLOOD ORDERABLES [facility] ([facility]) [address] [place] [address] * (ABNORMAL) CBC auto differential (10/06/2024 10:35 PM EDT) Auto WBC 5.88 4.00 - 10.60 10*3/uL 10/06/2024 10:59 PM EDT [facility] ([facility]) RBC 2.74(L) 3.80 - 5.00 10*6/uL 10/06/2024 10:59 PM EDT [facility] ([facility]) Hemoglobin 8.5(L) 12.0 - 15.0 g/dL 10/06/2024 10:59 PM EDT [facility] ([facility]) Hematocrit 29.0(L) 36.0 - 45.0 % 10/06/2024 10:59 PM EDT [facility] ([facility]) MCV 105.8(H) 82.0 - 98.0 fL 10/06/2024 10:59 PM EDT [facility] ([facility]) MCH 31.0 27.0 - 33.0 pg 10/06/2024 10:59 PM EDT [facility] ([facility]) MCHC 29.3(L) 32.0 - 35.0 g/dL 10/06/2024 10:59 PM EDT [facility] ([facility]) RDW 15.0 11.5 - 15.0 % 10/06/2024 10:59 PM EDT [facility] ([facility]) Neutrophils % 86.9(H) 40.0 - 72.0 % 10/06/2024 10:59 PM T [facility] ([facility]) Lymphocytes % 10.5(L) 20.0 - 45.0 % 10/06/2024 10:59 PM [facility] ([facility]) Monocytes % 1.4(L) 5.0 - 12.0 % 10/06/2024 10:59 PM [facility] ([facility]) Eosinophils % 0.0 0.0 - 6.0 % 10/06/2024 10:59 PM [facility] ([facility]) Basophils % 0.2 0.0 - 1.0 % 10/06/2024 10:59 PM [facility] ([facility]) Neutrophils Absolute 5.11 1.60 - 7.60 10*3/uL 10/06/2024 10:59 PM [facility] ([facility]) Lymphocytes Absolute 0.62(L) 1.20 - 4.00 10*3/uL 10/06/2024 10:59 PM [facility] ([facility]) Monocytes Absolute 0.08(L) 0.10 - 1.00 10*3/uL 10/06/2024 10:59 PM [facility] ([facility]) Eosinophils Absolute 0.00 0.00 - 0.50 10*3/uL 10/06/2024 10:59 PM [facility] ([facility]) Basophils Absolute 0.01 0.00 - 0.20 10*3/uL 10/06/2024 10:59 PM [facility] ([facility]) Platelets 126(L) 150 - 400 10*3/uL 10/06/2024 10:59 PM [facility] ([facility]) nRBC % 0.0 0 % 10/06/2024 10:59 PM [facility] ([facility]) Immature Granulocytes % 1.0 0.0 - 1.0 % 10/06/2024 10:59 PM [facility] ([facility]) Immature Granulocytes Absolute 0.06 0.00 - 0.20 10*3/uL 10/06/2024 10:59 PM [facility] ([facility]) Blood Venous blood specimen / Unknown Arterial Line / Unknown 10/06/2024 10:35 PM EDT 10/06/2024 10:53 PM EDT Silver nAt WALKER LAB BLOOD ORDERABLES [facility] ([facility]) [address] [place] [address] documented in this encounter Visit Diagnoses Diagnosis NSTEMI (non-ST elevated myocardial infarction) ([facility])- Primary Acute myocardial infarction, subendocardial infarction, episode of care unspecified NSTEMI (non-ST elevated myocardial infarction) ([facility]) Acute myocardial infarction, subendocardial infarction, episode of care unspecified Type 2 diabetes mellitus without complication, unspecified whether long chain beamer insulin use ([facility]) Pneumonia of right lower lobe due to infectious organism PETRA (obstructive sleep apnea) Obstructive sleep apnea (adult) (pediatric) Pneumonia of right lower lobe due to infectious organism Acute on chronic anemia Insulin dependent type 2 diabetes mellitus ([facility]) Class 3 obesity Hyperlipidemia Other and unspecified hyperlipidemia Acquired hypothyroidism Unspecified hypothyroidism Essential hypertension Unspecified essential hypertension History of supraventricular tachycardia Personal history of other diseases of circulatory system Chronic kidney disease (CKD), stage III (moderate) ([facility]) Chronic kidney disease, Stage III (moderate) GERD (gastroesophageal reflux disease) Esophageal reflux documented in this encounter Admitting Diagnoses Diagnosis NSTEMI (non-ST elevated myocardial infarction) ([facility]) Acute myocardial infarction, subendocardial infarction, episode of care unspecified documented in this encounter Administered Medications Inactive Administered Medications - up to 3 most recent administrations Medication Order MAR Action Action Date Dose Rate Site allopurinol (Zyloprim) tablet 300 mg 300 mg, oral, Daily, First dose on Danni 10/07/24 at 1000, For 99 days Given 10/11/2024 9:51 AM EDT 300 mg Given 10/10/2024 9:50 AM EDT 300 mg Given 10/08/2024 10:13 AM EDT 300 mg ascorbic acid (Vitamin C) tablet 250 mg 250 mg, oral, Daily, First dose on [place] 10/07/24 at 1000 Given 10/11/2024 9:50 AM EDT 250 mg Given 10/10/2024 9:50 AM EDT 250 mg Given 10/08/2024 10:12 AM EDT 250 mg atorvastatin (Lipitor) tablet 80 mg 80 mg, oral, Nightly, First dose on Fri10/06/24 at 2200, For 99 days Given 10/10/2024 9:32 PM EDT 80 mg Given 10/09/2024 9:38 PM EDT 80 mg Given 10/08/2024 9:46 PM EDT 80 mg benzonatate (Tessalon) capsule 100 mg 100 mg, oral, 3 times daily PRN, cough, Starting on Fri10/07/24 at 0048, For 99 days, Do not crush or chew. Given 10/09/2024 4:31 PM EDT 100 mg cefpodoxime (Vantin) tablet 200 mg 200 mg, oral, 2 times daily, First dose on Fri10/10/24 at 1545, For 3 days, Suspected Indication (Select all that apply): Pneumonia, Type of Pneumonia: Community-Acquired Given 10/11/2024 9:50 AM EDT 200 mg Given 10/10/2024 4:20 PM EDT 200 mg cefTRIAXone (Rocephin) IVPB 2 g in NS 50 mL (Mini-Bag Plus) 2 g, intravenous, at 100 mL/hr, Administer over 30 Minutes, Every 24 hours, First dose on Fri10/06/24 at 2145, For 3 days, Mini-Bag Plus bag, Suspected Indication (Select all that apply): Pneumonia, Type of Pneumonia: Community-Acquired, Type of Therapy: Empiric New Bag 10/08/2024 9:45 PM EDT 2 g 100 mL/hr New Bag 10/07/2024 9:41 PM EDT 2 g 100 mL/hr New Bag 10/06/2024 10:06 PM EDT 2 g 100 mL/hr cetirizine (ZyrTEC) tablet 10 mg 10 mg, oral, Daily, First dose on Fri10/07/24 at 1000 Given 10/11/2024 9:52 AM EDT 10 mg Given 10/10/2024 9:50 AM EDT 10 mg Given 10/08/2024 10:13 AM EDT 10 mg clopidogrel (Plavix) tablet 75 mg 75 mg, oral, Daily, First dose on Fri10/07/24 at 1000, For 99 days Given 10/11/2024 9:50 AM EDT 75 mg Given 10/10/2024 9:49 AM EDT 75 mg Given 10/08/2024 10:13 AM EDT 75 mg dextrose 50 % in water (D50W) syringe 25 mL 25 mL, intravenous, As needed, low blood sugar, Blood glucose 50-74 mg/dL, Starting on Fri10/07/24 at 0117, For 99 days, If BG 50-74 mg/dL: Discontinue or hold the insulin infusion and administer 12.5 grams D50 IV. Recheck blood glucose every 15 minutes until greater than or equal to 90 mg/dL. Then, recheck blood glucose every hour. When blood glucose greater than or equal to 140 mg/dL, wait 30 min, restart insulin infusion at 50% of most recent rate. dextrose 50 % in water (D50W) syringe 50 mL 50 mL, intravenous, As needed, low blood sugar, Blood glucose less than 50 mg/dL, Starting on Fri10/07/24 at 0117, For 99 days, If BG less than 50 mg/dL: Discontinue or hold the insulin infusion and administer 25 grams D50 IV. Recheck blood glucose every 15 minutes until greater than or equal to 90 mg/dL. Then, recheck blood glucose every hour. When blood glucose greater than or equal to140 mg/dL, wait 30 min, restart insulin infusion at 50% of most recent rate. diphenhydrAMINE (BENADryl) capsule 25 mg 25 mg, oral, Once, On Fri10/06/24 at 2300, For 1 dose Given 10/06/2024 11:01 PM EDT 25 mg diphenhydrAMINE (BENADryl) capsule 25 mg 25 mg, oral, 2 times daily PRN, itching, allergies, Starting on Fri10/07/24 at 0922, For 99 days Given 10/11/2024 9:55 AM EDT 25 mg Given 10/10/2024 4:03 PM EDT 25 mg Given 10/09/2024 7:38 PM EDT 25 mg doxycycline (Vibramycin) capsule 100 mg 100 mg, oral, Every 12 hours, First dose on Fri10/06/24 at 2145, For 3 days, Take with at least 8 ounces (large glass) of water, do not lie down for 30 minutes after, Suspected Indication (Select all that apply): Pneumonia, Type of Pneumonia: Community-Acquired, Type of Therapy: Empiric Given 10/09/2024 10:3 1 AM EDT 100 mg Given 10/08/2024 9:47 PM EDT 100 mg Given 10/08/2024 10:13 AM EDT 100 mg doxycycline (Vibramycin) capsule 100 mg 100 mg, oral, 2 times daily, First dose on [place] 10/10/24 at 1545, For 3 days, Take with at least 8 ounces (large glass) of water, do not lie down for 30 minutes after, Suspected Indication (Select all that apply): Pneumonia, Type of Pneumonia: Community-Acquired, Type of Therapy: Definitive, No Cultures Given 10/11/2024 9:51 AM EDT 100 mg Given 10/10/2024 4:59 PM EDT 100 mg famotidine (Pepcid) tablet 20 mg 20 mg, oral, Daily, First dose on [facility] 10/07/24 at 1000, For 99 days, Indication: GERD Given 10/11/2024 9:52 AM EDT 20 mg Given 10/10/2024 9:50 AM EDT 20 mg Given 10/08/2024 10:12 AM EDT 20 mg fenofibrate (Lofibra) tablet 160 mg 160 mg, oral, Nightly, First dose on [facility] 10/07/24 at 0100, For 99 days Given 10/10/2024 9:32 PM EDT 160 mg Given 10/09/2024 9:35 PM EDT 160 mg Given 10/08/2024 9:46 PM EDT 160 mg ferrous sulfate tablet 325 mg 325 mg, oral, Daily with breakfast, First dose on [facility] 10/07/24 at 0800, For 99 days Given 10/11/2024 8:05 AM EDT 325 mg Given 10/10/2024 9:50 AM EDT 325 mg Given 10/09/2024 8:54 AM EDT 325 mg furosemide (Lasix) tablet 20 mg 20 mg, oral, 2 times daily, First dose on [facility] 10/07/24 at 0115, For 99 days Given 10/11/2024 9:52 AM EDT 20 mg Given 10/10/2024 9:32 PM EDT 20 mg Given 10/10/2024 9:49 AM EDT 20 mg heparin (porcine) injection 5,000 Units 5,000 Units, subcutaneous, 2 times daily, First dose on Fri10/08/24 at 1445, For 99 days Given 10/11/2024 9:52 AM EDT 5,000 Units Left Lower Abdomen Given 10/10/2024 9:32 PM EDT 5,000 Units L eft Lower Abdomen Given 10/10/2024 9:49 AM EDT 5,000 Units L eft Lower Abdomen heparin infusion 100 units/mL in D5W 0-28 Units/kg/hr 113 kg (0-31.64 mL/hr, rounded to 0-31.6 mL/hr), intravenous, Continuous, Starting on Fri10/06/24 at 2230, For 99 days, Cardiac/Stroke protocol - Monitor antiXa level 6 hours after rate change, then every 6 hours until therapeutic twice. While therapeutic monitor every AM., Initial Heparin rate (units/kg/hr): 15, Anti-Xa < 0.20 Maintenance Dose Adjustment (units/kg/hr): 2, Anti-Xa < 0.20 Bolus Dose (units/kg): 0, Anti-Xa 0.2-0.29 Heparin Maintenance Dose Adjustment (units/kg/hr): 1, Anti-Xa 0.3-0.7 Maintenance Dose Adjustment (units/kg/hr): 0, Anti-Xa 0.71-0.8 Maintenance Dose Adjustment (units/kg/hr): -1, Anti-Xa 0.81-0.99 Maintenance Dose Adjustment (units/kg/hr): -2, Anti-Xa 1.00 or greater = Maintenance Dose Adjustment (units/kg/hr): -2, Anti-Xa 1.0 or greater = Bolus Dose (units/kg): 0, Anti-Xa 1.0 or greater = adjust current infusion: Hold infusion for 1 hour, then restart at 2 units/kg/hr below current dose., Indication: Cardiac/Stroke New Bag 10/07/2024 4:54 PM EDT 15 Units/kg/hr 17 mL/hr Rate/Dose Verify 10/07/2024 5:00 AM EDT 15 Units/kg/hr 17 mL/hr Rate/Dose Verify 10/07/2024 2:54 AM EDT 15 Units/kg/hr 17 mL/hr insulin glargine (Lantus) injection vial 30 Units 30 Units, subcutaneous, Once, On Fri10/10/24 at 1000, For 1 dose Given 10/10/2024 10:30 AM EDT 30 Units Left Lower Abdomen insulin glargine (Lantus) injection vial 30 Units 30 Units, subcutaneous, Once, On Fri10/11/24 at 0800, For 1 dose Given 10/11/2024 9:52 AM EDT 30 Units Left Lower Abdomen insulin glargine (Lantus) injection vial 50 Units 50 Units, subcutaneous, 2 times daily, First dose on Fri10/08/24 at 1000, For 99 days Given 10/08/2024 9:46 PM EDT 50 Units Right Lower Abdomen Given 10/08/2024 10:39 AM EDT 50 Units L eft Lower Abdomen insulin glargine (Lantus) injection vial 60 Units 60 Units, subcutaneous, 2 times daily, First dose (after last modification) on Fri10/09/24 at 1000, For 196 doses Given 10/09/2024 9:34 PM EDT 60 Units Left Lower Abdomen Given 10/09/2024 10:31 AM EDT 60 Units L eft Lower Abdomen insulin lispro (HumaLOG) injection 0-10 Units 0-10 Units, subcutaneous, 3 times daily with meals, First dose on Fri10/08/24 at 1300, For 99 days, BG less than 110 instructions: Hold Insulin. If BG less than 70, implement hypoglycemia orders., BG 110-150: 0, BG 151-200: 2, BG 201-250: 4, BG 251-300: 6, BG 301-350: 8, BG 351-400: 10, BG greater than 400 instructions: Call Physician Given 10/11/2024 12:56 PM EDT 8 Units Left Lower Abdomen Given 10/11/2024 9:53 AM EDT 4 Units Le ft Lower Abdomen Given 10/10/2024 4:59 PM EDT 8 Units Le ft Upper Abdomen insulin lispro (HumaLOG) injection 0-8 Units 0-8 Units, subcutaneous, Nightly, First dose on Fri10/08/24 at 2200, For 99 days, BG less than 110 instructions: Hold Insulin. If BG less than 70, implement hypoglycemia orders, BG 110-150: 0, BG 151-200: 0, BG 201-250: 2, BG 251-300: 4, BG 301-350: 6, BG 351-400: 8, BG greater than 400 instructions: Call Physician Given 10/10/2024 9:35 PM EDT 4 Units Right Lower Abdomen Given 10/09/2024 9:34 PM EDT 2 Units Ri ght Upper Abdomen Given 10/08/2024 9:45 PM EDT 4 Units Le ft Lower Abdomen insulin regular in 0.9 % NaCl 100 unit/100 mL (1 unit/mL) bolus from bag solution 2-10 Units 2-10 Units, intravenous, Once, On [place] 10/07/24 at 0130, For 1 dose, Divide initial BG level by 100, then round to nearest 0.5 units for bolus dose. Bolus from Bag 10/07/2024 1:30 AM EDT 6.5 Units insulin regular in 0.9 % NaCl 100 unit/100 mL (1 unit/mL) solution 0-60 Units/hr (0-60 mL/hr), intravenous, Continuous, Starting on [place] 10/07/24 at 0130, After priming IV tubing with insulin, waste 20 mL to ensure saturation of all IV tubing binding sites. Check blood glucose hourly while on infusion / protocol, unless otherwise specified by the calculator. If instructed by the calculator to hold the infusion until blood glucose is greater than or equal to 140 mg/dL, do not document subsequent blood glucose values in the calculator until the patient's blood glucose is greater than or equal to 140 mg/dL and the infusion should be resumed. If enteral / parenteral nutrition is stopped abruptly, reduce the insulin infusion rate by 50%. Be mindful of significant changes in dextrose containing fluid infusion rates. Notify provider if rate exceeds 20 units/hr. (Typical doses range from 2-10 units/hr) Notify provider for potassium levels less than 3.3 mmol/L or greater than 5.2 mmol/L Notify provider if patient is eating. Patients requiring IV insulin infusion are typically not eating. If eating, administer fast-acting SC insulin after meals to cover the meal (1 unit insulin per 15 grams of carbohydrates consumed - usual dose is 3 to 6 units) should be considered with order obtained from provider. Dose may be adjusted proportionate to the percentage of the tray consumed (e.g. insulin dose if of tray eaten). Notify provider if infusion is discontinued without appropriate scheduled subcutaneous insulin ordered for patients with Type 1 diabetes mellitus, insulin requiring type 2 diabetic patients, and those requiring greater than 1 unit per hour. These patients should be transitioned to scheduled insulin. Insulin Infusion Premix - Protect from light, Starting Dose: Initial blood glucose divided by 100, rounded to the nearest 0.5 units. Rate/Dose Change 10/08/2024 7:04 AM EDT 4.5 Units/hr 4.5 mL/hr Rate/Dose Change 10/08/2024 6:04 AM EDT 3.5 Units/hr 3.5 m L/hr Rate/Dose Change 10/08/2024 5:09 AM EDT 2.5 Units/hr 2.5 m L/hr insulin regular in 0.9 % NaCl 100 unit/100 mL (1 unit/mL) solution 0-60 Units/hr (0-60 mL/hr), intravenous, Continuous, Starting on Fri10/08/24 at 0930, After priming IV tubing with insulin, waste 20 mL to ensure saturation of all IV tubing binding sites. Check blood glucose hourly while on infusion / protocol, unless otherwise specified by the calculator. If instructed by the calculator to hold the infusion until blood glucose is greater than or equal to 140 mg/dL, do not document subsequent blood glucose values in the calculator until the patient's blood glucose is greater than or equal to 140 mg/dL and the infusion should be resumed. If enteral / parenteral nutrition is stopped abruptly, reduce the insulin infusion rate by 50%. Be mindful of significant changes in dextrose containing fluid infusion rates. Notify provider if rate exceeds 20 units/hr. (Typical doses range from 2-10 units/hr) Notify provider for potassium levels less than 3.3 mmol/L or greater than 5.2 mmol/L Notify provider if patient is eating. Patients requiring IV insulin infusion are typically not eating. If eating, administer fast-acting SC insulin after meals to cover the meal (1 unit insulin per 15 grams of carbohydrates consumed - usual dose is 3 to 6 units) should be considered with order obtained from provider. Dose may be adjusted proportionate to the percentage of the tray consumed (e.g. insulin dose if of tray eaten). Notify provider if infusion is discontinued without appropriate scheduled subcutaneous insulin ordered for patients with Type 1 diabetes mellitus, insulin requiring type 2 diabetic patients, and those requiring greater than 1 unit per hour. These patients should be transitioned to scheduled insulin. Insulin Infusion Premix - Protect from light, Starting Dose: Initial blood glucose divided by 100, rounded to the nearest 0.5 units. Rate/Dose Change 10/08/2024 12:02 PM EDT 10.5 Units/hr 10.5 mL/hr Rate/Dose Change 10/08/2024 11:16 AM EDT 8.5 Units/hr 8.5 mL/hr New Bag 10/08/2024 10:18 AM EDT 6.5 Units/hr 6.5 mL/hr lactobacillus acidophilus 500 million cell 1 capsule 1 capsule, oral, Daily, First dose on [facility] 10/07/24 at 1000 Given 10/11/2024 9:50 AM EDT 1 capsule Given 10/10/2024 9:50 AM EDT 1 capsule Given 10/08/2024 10:13 AM EDT 1 capsule levothyroxine (Synthroid, Levoxyl) tablet 175 mcg 175 mcg, oral, Daily before breakfast, First dose on [facility] 10/07/24 at 0730, For 99 days Given 10/11/2024 5:38 AM EDT 175 mcg Given 10/10/2024 7:56 AM EDT 175 mcg Given 10/09/2024 8:46 AM EDT 175 mcg lisinopril tablet 10 mg 10 mg, oral, Daily, First dose on [facility] 10/09/24 at 1645, For 99 days Given 10/11/2024 9:52 AM EDT 10 mg Given 10/10/2024 9:49 AM EDT 10 mg Given 10/09/2024 4:49 PM EDT 10 mg metoprolol tartrate (Lopressor) tablet 100 mg 100 mg, oral, 2 times daily, First dose on [facility] 10/07/24 at 0100, For 99 days Given 10/11/2024 9:52 AM EDT 100 mg Given 10/10/2024 9:32 PM EDT 100 mg Given 10/10/2024 9:50 AM EDT 100 mg mometasone-formoterol (Dulera 100) 100-5 mcg/actuation inhaler 2 puff 2 puff, inhalation, 2 times daily RT, First dose on [facility] 10/07/24 at 0100, Rinse mouth with water after use to reduce aftertaste and incidence of candidiasis. Do not swallow. Given 10/11/2024 10:00 AM EDT 2 puffs Given 10/10/2024 9:33 PM EDT 2 puffs Given 10/10/2024 9:46 AM EDT 2 puffs montelukast (Singulair) tablet 10 mg 10 mg, oral, Daily, First dose on Fri10/07/24 at 1000, For 99 days Given 10/11/2024 9:51 AM EDT 10 mg Given 10/10/2024 9:50 AM EDT 10 mg Given 10/08/2024 10:13 AM EDT 10 mg Oxygen Therapy Routine, Device: Nasal Cannula, Flow in liters per minute: 2 Lpm Oxygen On 10/10/2024 9:51 AM EDT Oxygen On 10/10/2024 2:00 AM EDT 2 mL/hr In tranasal Oxygen On 10/06/2024 9:45 PM EDT pantoprazole (ProtoNix) EC tablet 40 mg 40 mg, oral, 2 times daily RT, First dose on Fri10/07/24 at 0100, For 99 days, Do not crush, chew, or split., Indication: GERD Given 10/11/2024 8:05 AM EDT 40 mg Given 10/10/2024 9:32 PM EDT 40 mg Given 10/10/2024 9:50 AM EDT 40 mg pregabalin (Lyrica) capsule 100 mg 100 mg, oral, 3 times daily, First dose on Fri10/07/24 at 0100, For 99 days Given 10/11/2024 9:52 AM EDT 100 mg Given 10/10/2024 9:32 PM EDT 100 mg Given 10/10/2024 4:03 PM EDT 100 mg sulfur hexafluoride microsphr (Lumason) injection 24.28 mg 24.28 mg (2 mL), intravenous, Once in imaging, Starting on Fri10/07/24 at 1502, For 1 dose Given 10/07/2024 3:03 PM EDT 24.28 mg umeclidinium (Incruse Ellipta) 62.5 mcg/actuation inhalation 62.5 mcg 62.5 mcg (1 puff), inhalation, Daily, First dose on [place] 10/07/24 at 1000 Given 10/11/2024 9:57 AM EDT 62.5 mcg Given 10/10/2024 9:47 AM EDT 62.5 mcg Given 10/08/2024 10:12 AM EDT 62.5 mcg documented in this encounter Active and Recently Administered Medications Times are shown in EDT. Scheduled Medication Order 10/09/2024 10/10/2024 10/11/2024 allopurinol (Zyloprim) tablet 300 mg 300 mg, oral, Daily, First dose on [place] 10/07/24 at 1000, For 99 days 1000 (Override Pull - Provider: Albert Diamond RN - Comment: given) 0950 (Given - Provider: Raysa Breen RN) 0951 (Given - Provider: Meredith Escalona, RIGOBERTO) ascorbic acid (Vitamin C) tablet 250 mg 250 mg, oral, Daily, First dose on [place] 10/07/24 at 1000 1000 (Override Pull - Provider: Albert Diamond RN - Comment: given) 0950 (Given - Provider: Raysa Breen RN) 0950 (Given - Provider: Meredith Escalona, RIGOBERTO) atorvastatin (Lipitor) tablet 80 mg 80 mg, oral, Nightly, First dose on Fri10/06/24 at 2200, For 99 days 2137 (Given - Provider: Erin Castillo, RIGOBERTO) 2131 (Given - Provider: Vanessa Klein, RIGOBERTO) cefpodoxime (Vantin) tablet 200 mg 200 mg, oral, 2 times daily, First dose on Fri10/10/24 at 1545, For 3 days, Suspected Indication (Select all that apply): Pneumonia, Type of Pneumonia: Community-Acquired 1620 (Given - Provider: Raysa Breen RN)2200 (Not Given - Provider: Vanessa Klein, RIGOBERTO - Reason: See Provider Order - Comment: too close to previous admin) 0950 (Given - Provider: Meredith Escalona, RIGOBERTO) cetirizine (ZyrTEC) tablet 10 mg 10 mg, oral, Daily, First dose on Fri10/07/24 at 1000 2200 (Not Given - Provider: Erin Castillo, RIGOBERTO - Reason: Other - Comment: Pixis said due at 1000am.) 0950 (Given - Provider: Raysa Breen RN) 0952 (Given - Provider: Meredith Escalona, RIGOBERTO) clopidogrel (Plavix) tablet 75 mg 75 mg, oral, Daily, First dose on [place] 10/07/24 at 1000, For 99 days 1000 (Override Pull - Provider: Albert Diamond RN - Comment: given) 0949 (Given - Provider: Raysa Breen RN) 0950 (Given - Provider: Meredith Escalona RN) doxycycline (Vibramycin) capsule 100 mg (COMPLETED) 100 mg, oral, Every 12 hours, First dose on Fri10/06/24 at 2145, For 3 days, Take with at least 8 ounces (large glass) of water, do not lie down for 30 minutes after, Suspected Indication (Select all that apply): Pneumonia, Type of Pneumonia: Community-Acquired, Type of Therapy: Empiric 1031 (Given - Provider: Albert Diamond RN) doxycycline (Vibramycin) capsule 100 mg 100 mg, oral, 2 times daily, First dose on Fri10/10/24 at 1545, For 3 days, Take with at least 8 ounces (large glass) of water, do not lie down for 30 minutes after, Suspected Indication (Select all that apply): Pneumonia, Type of Pneumonia: Community-Acquired, Type of Therapy: Definitive, No Cultures 1659 (Given - Provider: Raysa Breen RN - Comment: pt needed benedryl first)2200 (Not Given - Provider: Vanessa Klein RN - Reason: See Provider Order - Comment: too close to previous admin) 0951 (Given - Provider: Meredith Escalona RN) famotidine (Pepcid) tablet 20 mg 20 mg, oral, Daily, First dose on [place] 10/07/24 at 1000, For 99 days, Indication: GERD 1000 (Override Pull - Provider: Albert Diamond RN - Comment: given) 0950 (Given - Provider: Raysa Breen RN) 0952 (Given - Provider: Meredith Escalona RN) fenofibrate (Lofibra) tablet 160 mg 160 mg, oral, Nightly, First dose on [place] 10/07/24 at 0100, For 99 days 2134 (Given - Provider: Erin Castillo RN) 2131 (Given - Provider: Vanessa Klein, RIGOBERTO) ferrous sulfate tablet 325 mg 325 mg, oral, Daily with breakfast, First dose on [place] 10/07/24 at 0800, For 99 days 0854 (Given - Provider: Albert Diamond RN) 0950 (Given - Provider: Raysa Breen RN) 0805 (Given - Provider: Meredith Escalona, RIGOBERTO) furosemide (Lasix) tablet 20 mg 20 mg, oral, 2 times daily, First dose on [place] 10/07/24 at 0115, For 99 days 1000 (Override Pull - Provider: Albert Diamond RN - Comment: given)2134 (Given - Provider: Erin Castillo RN) 948 (Given - Provider: Raysa Breen RN)2131 (Given - Provider: Vanessa Klein, RIGOBERTO) 0952 (Given - Provider: Meredith Escalona, RIGOBERTO) heparin (porcine) injection 5,000 Units 5,000 Units, subcutaneous, 2 times daily, First dose on Fri10/08/24 at 1445, For 99 days 1000 (Override Pull - Provider: Albert Diamond RN - Comment: given)2136 (Given - Provider: Erin Castillo RN) 0949 (Given - Provider: Raysa Breen RN)2131 (Given - Provider: Vanessa Klein, RIGOBERTO) 0952 (Given - Provider: Meredith Escalona RN) insulin glargine (Lantus) injection vial 30 Units (COMPLETED) 30 Units, subcutaneous, Once, On Fri10/10/24 at 1000, For 1 dose 1030 (Given - Provider: Raysa Breen RN) insulin glargine (Lantus) injection vial 30 Units (COMPLETED) 30 Units, subcutaneous, Once, On Fri10/11/24 at 0800, For 1 dose 0952 (Given - Provider: Meredith Escalona RN) insulin glargine (Lantus) injection vial 60 Units (CANCELED) 60 Units, subcutaneous, 2 times daily, First dose (after last modification) on 10/09/24 at 1000, For 196 doses 1031 (Given - Provider: Albert Diamond RN)2134 (Given - Provider: Erin Castillo, RN) insulin lispro (HumaLOG) injection 0-10 Units(Linked Group 1) 0-10 Units, subcutaneous, 3 times daily with meals, First dose on Fri10/08/24 at 1300, For 99 days, BG less than 110 instructions: Hold Insulin. If BG less than 70, implement hypoglycemia orders., BG 110-150: 0, BG 151-200: 2, BG 201-250: 4, BG 251-300: 6, BG 301-350: 8, BG 351-400: 10, BG greater than 400 instructions: Call Physician 0858 (Given - Provider: Albert Diamond RN)1329 (Given - Provider: Albert Diamond RN)1649 (Given - Provider: Albert Diamond RN) 0800 (Not Given - Provider: Raysa Breen RN - Reason: Order parameters not met)1215 (Given - Provider: Raysa Breen RN)1659 (Given - Provider: Raysa Breen RN) 0953 (Given - Provider: Meredith Escalona, RIGOBERTO)1256 (Given - Provider: Meredith Escalona RN)1700 (Canceled Entry - Provider: Automatic Discharge Provider - Comment: Automatically canceled at discontinue of medication order) insulin lispro (HumaLOG) injection 0-8 Units(Linked Group 1) 0-8 Units, subcutaneous, Nightly, First dose on Fri10/08/24 at 2200, For 99 days, BG less than 110 instructions: Hold Insulin. If BG less than 70, implement hypoglycemia orders, BG 110-150: 0, BG 151-200: 0, BG 201-250: 2, BG 251-300: 4, BG 301-350: 6, BG 351-400: 8, BG greater than 400 instructions: Call Physician 2133 (Given - Provider: Erin Castillo, RIGOBERTO) 2134 (Given - Provider: Vanessa Klein RN) lactobacillus acidophilus 500 million cell 1 capsule 1 capsule, oral, Daily, First dose on Fri10/07/24 at 1000 1000 (Override Pull - Provider: Albert Diamond RN - Comment: given) 0950 (Given - Provider: Raysa Breen RN) 0950 (Given - Provider: Meredith Escalona, RIGOBERTO) levothyroxine (Synthroid, Levoxyl) tablet 175 mcg 175 mcg, oral, Daily before breakfast, First dose on [place] 10/07/24 at 0730, For 99 days 0846 (Given - Provider: Albert Diamond RN) 0756 (Given - Provider: Raysa Breen RN) 0538 (Given - Provider: Vanessa Klein, RIGOBERTO) lisinopril tablet 10 mg 10 mg, oral, Daily, First dose on 10/09/24 at 1645, For 99 days 1649 (Given - Provider: Albert Diamond RN) 0949 (Given - Provider: Raysa Breen RN) 0952 (Given - Provider: Meredith Escalona, RIGOBERTO) metoprolol tartrate (Lopressor) tablet 100 mg 100 mg, oral, 2 times daily, First dose on [place] 10/07/24 at 0100, For 99 days 1000 (Override Pull - Provider: Albert Diamond RN - Comment: given)2134 (Given - Provider: Erin Castillo RN) 0950 (Given - Provider: Raysa Breen RN)2131 (Given - Provider: Vanessa Klein, RIGOBERTO) 0952 (Given - Provider: Meredith Escalona, RIGOBERTO) mometasone-formoterol (Dulera 100) 100-5 mcg/actuation inhaler 2 puff 2 puff, inhalation, 2 times daily RT, First dose on [place] 10/07/24 at 0100, Rinse mouth with water after use to reduce aftertaste and incidence of candidiasis. Do not swallow. 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)2132 (Given - Provider: Vanessa Klein, RIGOBERTO) 1000 (Given - Provider: Meredith Escalona, RIGOBERTO) montelukast (Singulair) tablet 10 mg 10 mg, oral, Daily, First dose on [place] 10/07/24 at 1000, For 99 days 1000 (Override Pull - Provider: Albert Diamond RN - Comment: given) 0950 (Given - Provider: Raysa Breen RN) 0951 (Given - Provider: Meredith Escalona, RIGOBERTO) Oxygen Therapy Routine, Device: Nasal Cannula, Flow in liters per minute: 2 Lpm 0200 (Oxygen On - Provider: Erin Castillo RN)0951 (Oxygen On - Provider: Raysa Breen RN) pantoprazole (ProtoNix) EC tablet 40 mg 40 mg, oral, 2 times daily RT, First dose on Danni 10/07/24 at 0100, For 99 days, Do not crush, chew, or split., Indication: GERD 0856 (Given - Provider: Albert Diamond RN)1938 (Given - Provider: Erin Castillo RN) 0950 (Given - Provider: Raysa Breen RN - Comment: 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)2132 (Given - Provider: Vanessa Klein RN) 0805 (Given - Provider: Meredith Escalona, RIGOBERTO) pregabalin (Lyrica) capsule 100 mg 100 mg, oral, 3 times daily, First dose on Danni 10/07/24 at 0100, For 99 days 1000 (Override Pull - Provider: Albert Diamond RN - Comment: given)1540 (Given - Provider: Albert Diamond RN)2136 (Given - Provider: Erin Castillo RN) 0949 (Given - Provider: Raysa Breen RN)1603 (Given - Provider: Raysa Breen, RIGOBERTO)2132 (Given - Provider: Vanessa Klein RN) 0952 (Given - Provider: Meredith Escalona, RIGOBERTO)1600 (Canceled Entry - Provider: Automatic Discharge Provider - Comment: Automatically canceled at discontinue of medication order) umeclidinium (Incruse Ellipta) 62.5 mcg/actuation inhalation 62.5 mcg 62.5 mcg (1 puff), inhalation, Daily, First dose on Danni 10/07/25 at 1000 1000 (Override Pull - Provider: Albert Diamond RN - Comment: given) 0932 (Given - Provider: Raysa Breen RN) 0934 (Given - Provider: Meredith Escalona RN) PRN Medication Order 10/09/2024 10/10/2024 10/11/2024 acetaminophen (Tylenol) tablet 650 mg 650 mg, oral, Every 6 hours PRN, mild pain (1-3 pain score), (1-3), Starting on Fri10/06/24 at 2142, For 99 days albuterol 90 mcg/actuation inhaler 2 puff 2 puff, inhalation, Every 4 hours PRN, shortness of breath, wheezing, Starting on Fri10/07/24 at 0051 benzonatate (Tessalon) capsule 100 mg 100 mg, oral, 3 times daily PRN, cough, Starting on Fri10/07/24 at 0048, For 99 days, Do not crush or chew. 1631 (Given - Provider: Albert Diamond RN) dextrose 50 % in water (D50W) syringe 25 mL(Linked Group 2) 25 mL, intravenous, As needed, low blood sugar, Blood glucose 50-74 mg/dL, Starting on Fri10/07/24 at 0117, For 99 days, If BG 50-74 mg/dL: Discontinue or hold the insulin infusion and administer 12.5 grams D50 IV. Recheck blood glucose every 15 minutes until greater than or equal to 90 mg/dL. Then, recheck blood glucose every hour. When blood glucose greater than or equal to 140 mg/dL, wait 30 min, restart insulin infusion at 50% of most recent rate. dextrose 50 % in water (D50W) syringe 50 mL(Linked Group 3) 50 mL, intravenous, As needed, low blood sugar, Blood glucose less than 50 mg/dL, Starting on Fri10/07/24 at 0117, For 99 days, If BG less than 50 mg/dL: Discontinue or hold the insulin infusion and administer 25 grams D50 IV. Recheck blood glucose every 15 minutes until greater than or equal to 90 mg/dL. Then, recheck blood glucose every hour. When blood glucose greater than or equal to140 mg/dL, wait 30 min, restart insulin infusion at 50% of most recent rate. diphenhydrAMINE (BENADryl) capsule 25 mg 25 mg, oral, 2 times daily PRN, itching, allergies, Starting on Fri10/07/24 at 0922, For 99 days 0856 (Given - Provider: Albert Diamond, RN)1938 (Given - Provider: Erin Castillo, RN) 1603 (Given - Provider: Raysa Breen, RIGOBERTO) 0955 (Given - Provider: Meredith Escalona RN) meclizine (Antivert) tablet 25 mg 25 mg, oral, 2 times daily PRN, dizziness, Starting on Fri10/07/24 at 0051, For 99 days melatonin tablet 5 mg 5 mg, oral, Nightly PRN, sleep, Starting on Fri10/06/24 at 2142, For 99 days nitroglycerin (Nitrostat) SL tablet 0.4 mg 0.4 mg, sublingual, Every 5 min PRN, chest pain, Starting on Fri10/06/24 at 2142, For 3 doses, May administer up to 3 doses per episode. Linked Groups Order Group 1: insulin lispro (HumaLOG) injection 0-10 UnitsJump to med 0-10 Units, subcutaneous, 3 times daily with meals, First dose on Fri10/08/24 at 1300, For 99 days, BG less than 110 instructions: Hold Insulin. If BG less than 70, implement hypoglycemia orders., BG 110-150: 0, BG 151-200: 2, BG 201-250: 4, BG 251-300: 6, BG 301-350: 8, BG 351-400: 10, BG greater than 400 instructions: Call Physician And insulin lispro (HumaLOG) injection 0-8 UnitsJump to med 0-8 Units, subcutaneous, Nightly, First dose on Fri10/08/24 at 2200, For 99 days, BG less than 110 instructions: Hold Insulin. If BG less than 70, implement hypoglycemia orders, BG 110-150: 0, BG 151-200: 0, BG 201-250: 2, BG 251-300: 4, BG 301-350: 6, BG 351-400: 8, BG greater than 400 instructions: Call Physician Group 2: dextrose 50 % in water (D50W) syringe 25 mLJump to med 25 mL, intravenous, As needed, low blood sugar, Blood glucose 50-74 mg/dL, Starting on Danni 10/07/24 at 0117, For 99 days, If BG 50-74 mg/dL: Discontinue or hold the insulin infusion and administer 12.5 grams D50 IV. Recheck blood glucose every 15 minutes until greater than or equal to 90 mg/dL. Then, recheck blood glucose every hour. When blood glucose greater than or equal to 140 mg/dL, wait 30 min, restart insulin infusion at 50% of most recent rate. And POCT glucose meter docked device (CANCELED) As needed, Starting on Danni 10/07/24 at 0117, Until Specified, Blood Glucose 50-74 mg/dL. Recheck blood glucose every 15 minutes until greater than or equal to 90 mg/dL. Then, recheck blood glucose every hour. Group 3: dextrose 50 % in water (D50W) syringe 50 mLJump to med 50 mL, intravenous, As needed, low blood sugar, Blood glucose less than 50 mg/dL, Starting on Danni 10/07/24 at 0117, For 99 days, If BG less than 50 mg/dL: Discontinue or hold the insulin infusion and administer 25 grams D50 IV. Recheck blood glucose every 15 minutes until greater than or equal to 90 mg/dL. Then, recheck blood glucose every hour. When blood glucose greater than or equal to140 mg/dL, wait 30 min, restart insulin infusion at 50% of most recent rate. And POCT glucose meter docked device (CANCELED) As needed, Starting on Danni 10/07/24 at 0117, Until Specified, Blood glucose less than 50 mg/dL. Recheck blood glucose every 15 minutes until greater than or equal to 90 mg/dL. Then, recheck blood glucose every hour. 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
--- OUTSIDE RECORDS SUMMARY | 2024-10-07 14:30 | XMS_ITS ---
Author Name Auto Generated Organization OHIP Support Name Relationship Address Phone CURTIS SCHAEFFER Next of Kin Unknown [phone] ROMAN YEPEZ Next of Kin Unknown [phone] ROSE SCHAEFFERE Next of Kin Unknown [phone] LUCHO CRYSTAL Next of Kin Unknown [phone] ROSE SCHAEFFERE Next of Kin Unknown [phone] LUCHO CRYSTAL Next of Kin Unknown [phone] MAKSIM, CURTIS Next of Kin Unknown [phone] ROMAN YEPEZ Next of Kin Unknown [phone] ROSE SCHAEFFERE Next of Kin Unknown [phone] RAYADELAIDA Next of Kin Unknown [phone] [facility], CURTIS Next of Kin Unknown [phone] ADELAIDA BELL Next of Kin Unknown [phone] [facility], CURTIS Next of Kin Unknown [phone] ADELAIDA BELL Next of Kin Unknown [phone] [facility], CURTIS Next of Kin Unknown [phone] [facility] Next of Kin Unknown [phone] ADELAIDA BELL Next of Kin Unknown [phone] DANIELLE, CURTIS Next of Kin [address] [place] [address] Unavailable CURTIS SCHAEFFER Next of Kin [address] [place] [address] Unavailable MAKSIM, CURTIS Next of Kin [address] [place] [address] Unavailable [facility]UH, CURTIS Next of Kin [address] [place] [address] Unavailable [facility], CURTIS Next of Kin [address] [place] [address] Unavailable [facility], CURTIS Next of Kin [address] [place] [address] Unavailable [facility], CURTIS Next of Kin [address] [place] [address] Unavailable [facility], CURTIS Next of Kin [address] [place] [address] Unavailable [facility], CURTIS Next of Kin [address] [place] [address] Unavailable [facility], CURTIS Next of Kin [address] [place] [address] Unavailable [facility], CURTIS Next of Kin [address] [place] [address] Unavailable [facility], CURTIS Next of Kin [address] [place] [address] Unavailable [facility], CURTIS Next of Kin [address] [place] [address] Unavailable [facility], CURTIS Next of Kin [address] [place] [address] Unavailable [facility], CURTIS Next of Kin [address] [place] [address] Unavailable [facility], CURTIS Next of Kin [address] [place] [address] Unavailable [facility], CURTIS Next of Kin [address] [place] [address] Unavailable [facility], CURTIS Next of Kin [address] [place] [address] Unavailable [facility], CURTIS Next of Kin [address] [place] [address] Unavailable [facility], CURTIS Next of Kin [address] [place] [address] Unavailable [facility], CURTIS Next of Kin [address] [place] [address] Unavailable [facility], CURTIS Next of Kin [address] [place] [address] Unavailable [facility], CURTIS Next of Kin Unknown [phone] ADELAIDA BELL Next of Kin Unknown [phone] [facility], CURTIS Next of Kin Unknown [phone] ADELAIDA BELL Next of Kin Unknown [phone] [facility], CURTIS Next of Kin Unknown [phone] [facility], CURTIS Next of Kin Unknown [phone] RAY, ADELAIDA Next of Kin Unknown [phone] [facility], CURTIS Next of Kin Unknown [phone] RAY, ADELAIDA Next of Kin Unknown [phone] [facility], CURTIS Next of Kin Unknown [phone] Care Team Providers Care Dental Secretary Name Role Phone RAVINDER CHAPMAN Referring Unavailable JAKE BUCKLEY Referring Unavailable JAKE BUCKLEY Referring Unavailable MAIA REYES Referring Unavailable HORANI, JOSE LUIS Admitting Unavailable RAVINDER CHAPMAN Attending Unavailable ELTACADENCE, EHAB Attending Unavailable ELJEET, REBECA Attending Unavailable ROHAN, REBECA Attending Unavailable IRMA NGUYEN Attending Unavailable ENEDINA ROMERO Attending Unavailable MARTI DUNHAM Attending Unavailable ENEDINA ROMERO Attending Unavailable ENEDINA ROMERO Attending Unavailable IRMA NGUYEN Attending Unavailable ENEDINA ROMERO Attending Unavailable ELÍAS JACINTO Attending Unavailable ELÍAS JACINTO F Referring Unavailable BONNIE, JAYLEEN P Attending Unavailable SHANTANU, ANN S Referring Unavailable SHANTANU, ANN S Primary Care Unavailable BONNIE, JAYLEEN P Referring Unavailable SHANTANU, ANN S Primary Care Unavailable BONNIE, JAYLEEN P Attending Unavailable SHANTANU, ANN S Referring Unavailable SHANTANU, ANN S Primary Care Unavailable BONNIE, JAYLEEN P Attending Unavailable SHANTANU, ANN S Referring Unavailable SHANTANU, ANN S Primary Care Unavailable BONNIE, JAYLEEN P Attending Unavailable SHANTANU, ANN S Referring Unavailable SHANTANU, ANN S Primary Care Unavailable SHANTANU, ANN S Primary Care Unavailable ANTONIO PARRA Attending Unavailab GHANSHYAM Morales Admitting Unavailable ONLY), [facility] (INPATIENT Consult ing Unavailable JOSE LUIS, MENNATALLAH M Consulting Unavailable BIANKA LACY Consulting Unavailable DIVISION OF INFECTIOUS DISEASE, [facility] Consulting Unavailable GERMAINE FREEMAN Attending Unavailable SHANTANU, ANN S Primary Care Unavailable GERMAINE FREEMAN Attending Unavailable SHANTANU, ANN S Primary Care Unavailable JAYLEEN NICOLE Attending Unavailable SHANTANU, ANN S Referring Unavailable SHANTANU, ANN S Primary Care Unavailable SHANTANU, ANN S Primary Care Unavailable KEV JACKSON Attending Unavailable BALTAZAR BACON Attending Unavailable SHANTANU, ANN S Referring Unavailable SHANTANU, ANN S Primary Care Unavailable Shantanu, Ann Tash Primary Care Unavailable Arun Riggins Admitting Unavailable Arun Riggins Attending Unavailable Munir Morelos Admitting UnavailMunir Milligan Attending Unavailabl e Shantanu, Ann Tash Primary Care Unavailable Shantanu, Ann Tash Primary Care Unavailable Mc Roque Admitting Unavailable Mc Roque Attending Unavailable Jorge Early Admitting Unavailable Jorge Early Attending Unavailable Shantanu, Ann Tash Primary Care Unavailable Shantanu, Ann Tash Primary Care Unavailable Billy Nickerson Attending UnavailAudra Ortiz Admitting Unavailable Troy Moya Consulting Unavailable Antonio Jenkins Consulting Unavailable Shantanu, Ann Tash Primary Care Unavailable Troy Moya Admitting Unavailable Troy Moya Attending Unavailable PROBLEMS DATE TYPE CONDITION / CODE ATTENDING STATUS [facility] 10/06/2024 Admitting Diagnosis Non-ST elevation (NSTEMI) myocardial infarction / I21.4(ICD-10) [facility] 10/06/2024 Admitting Diagnosis Pneumonia, unspecified organism / J18.9(ICD-10) [facility] 11/03/2023 Admitting Diagnosis Type 2 diabetes mellitus without complications / E11.9(ICD-10) [facility] 11/03/2023 Admitting Diagnosis 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 / Z79.4(ICD-10) ADELA [facility] 10/06/2024 Admitting Diagnosis Obstructive sleep apnea (adult) (pediatric) / G47.33(ICD-10) RAVINDER CHAPMAN [facility] 11/03/2023 Admitting Diagnosis Other hyperlipidemia / E78.49(ICD-10) REBECA VALADEZ [facility] 05/03/2024 Unknown Other acute postprocedural pain / G89.18(ICD-10) MoyaTroy de la garza [facility] 03/17/2024 Unknown Unspecified open wound of abdominal wall, unspecified quadrant without penetration into peritoneal cavity, initial encounter / S31.109A(ICD-10) DoNikolai chewderick E [facility] 03/17/2024 Unknown Type 2 diabetes mellitus with diabetic chronic kidney disease / E11.22(ICD-10) Dojeevan, Billy [facility] 03/17/2024 Unknown Cutaneous absces s, unspecified / L02.91(ICD-10) 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 / E79.0(ICD-10) Doanastasiacalixto, Billy [facility] 03/17/2024 Unknown Resistance to mu ltiple antibiotics / Z16.24(ICD-10) Doanastasiacalixto, Billy [facility] 03/10/2024 Unknown Cellulitis of abdominal wall / L03.311(ICD-10) BALTAZAR BACON [facility] 02/20/2024 Unknown Other injury of unspecified body region, initial encounter / T14.8XXA(ICD-10) ANTONIO PARRA [facility] 02/20/2024 Unknown Local infection of the skin and subcutaneous tissue, unspecified / L08.9(ICD-10) ANTONIO PARRA [facility] 02/20/2024 Unknown Wound Check / UNK(Unknown) ANTONIO PARRA [facility] 02/06/2024 Unknown Toxic effect of unspecified spider venom, accidental (unintentional), subsequent encounter / T63.301D(ICD-10) JAYLEEN NICOLE [facility] 01/30/2024 Unknown Non-pressure chr onic ulcer of skin of 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 / L98.492(ICD-10) JAYLEEN NICOLE [facility] 01/30/2024 Unknown Toxic effect of unspecified spider venom, accidental (unintentional), initial encounter / T63.301A(ICD-10) JAYLEEN NICOLE [facility] 01/30/2024 Unknown Wound Check / FREETEXT(AOF) JAYLEEN NICOLE [facility] 11/03/2023 Admitting Diagnosis Mixed hyperlipidemia / E78.2(ICD-10) [facility] 12/18/2023 Admitting Diagnosis Hypertensive heart disease without heart failure / I11.9(ICD-10) [facility] 11/03/2023 Admitting Diagnosis 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 Patient encouraged to call if any new questions/concerns arise. 30 Observed: 10/11/2024 1:52 PM Status: COMPLETED Source: [facility] The patient is Moderately St able - Low risk of patient condition declining or worsening The patient's goals for the shift include comfort The clinical goals for the shift include VSS; safety Problem: Pain - Adult Goal: Verbalizes/displays adequate comfort level or baseline comfort level Outcome: ProgressingProblem: Safety - Adult Goal: Free from fall injury Outcome: ProgressingProblem: Discharge Planning Goal: Discharge to home or other facility with appropriate resources Outcome: ProgressingProblem: Chronic Conditions and Co-morbidities Goal: Patient's chronic conditions and co-morbidity symptoms are monitored and maintained or improved Outcome: ProgressingProblem: Neurosensory - Adult Goal: Achieves stable or improved neurological status Outcome: ProgressingProblem: Respiratory - Adult Goal: Achieves optimal ventilation and oxygenation Outcome: ProgressingProblem: Cardiovascular - Adult Goal: Maintains optimal cardiac output and hemodynamic stability Outcome: ProgressingProblem: Skin/Tissue Integrity - Adult Goal: Skin integrity remains intact Outcome: ProgressingProblem: Musculoskeletal - Adult Goal: Return mobility to safest level of function Outcome: ProgressingProblem: Gastrointestinal - Adult Goal: Maintains or returns to baseline bowel function Outcome: ProgressingProblem: Genitourinary - Adult Goal: Absence of urinary retention Outcome: ProgressingProblem: Infection - Adult Goal: Absence of infection at discharge Outcome: ProgressingProblem: Metabolic/Fluid and Electrolytes - Adult Goal: Electrolytes maintained within normal limits Outcome: ProgressingProblem: Hematologic - Adult Goal: Maintains hematologic stability Outcome: Progressing PROGRESS Observed: 10/11/2024 1:13 PM Status: COMPLETED Source: [facility] discharge planning: to Home with [facility] resuming services AVS sent to [facility], via [facility] system POCT GLUCOSE METER UNSOLICIT ED RESULTS Collected: 10/11/2024 12:03 PM Status: UNK Source: [facility] Order Comment: Waived Testin g in the ED is performed under the ED CLIA certificate #[id number]. TYPE CODE TESTS RESULT OUT OF RANGE REFERENCE UNITS LAB 885 POCT GLUCOSE 318 High 70-105 mg/dL Result Comment: [email or web address] Performed By: #### [id number] #### [facility] ([facility]) [address] [place] [address] NURSNOTE Observed: 10/11/2024 8:18 AM Status: COMPLETED Source: [facility] The findings from this face to face encounter indicate the reason this patient requires oxygen Patient is diagnosed with a chronic condition requiring the use of oxygen to maintain stability outside the hospital setting This note constitutes a F2F for home oxygen therapy. Patient qualifies for Home Oxygen Therapy as evaluated by respiratory therapy. 2L NC at rest and 4L with ambulation. HOME O2 EVAL REVIEWED AND PATIENT REQUIRES OXYGEN DUE TO SPO2 84 % ON ROOM AIR WITH AMBULATION. Dx: PNA POCT GLUCOSE METER UNSOLICIT ED RESULTS Collected: 10/11/2024 7:32 AM Status: UNK Source: [facility] Order Comment: Waived Testin g in the ED is performed under the ED CLIA certificate #[id number]. TYPE CODE TESTS RESULT OUT OF RANGE REFERENCE UNITS LAB 885 POCT GLUCOSE 232 High 70-105 mg/dL Result Comment: [email or web address] Performed By: #### [id number] #### [facility] ([facility]) [address] [place] [address] CBC Collected: 10/11/2024 3:57 AM Status: UN K Source: [facility] TYPE CODE TESTS RESULT OUT OF RANGE REFERENCE UNITS LAB [id number] LEUKOCYTES(10*3/ U L) IN BLOOD BY AUTOMATED COUNT 5.66 4.00-10.60 10*3/uL LAB [id number] ERYTHROCYTES (10*6/UL) IN BLOOD BY AUTOMATED COUNT 2.82 Low 3.80-5.00 10*6/uL LAB [id number] HEMOGLOBIN (G/DL ) IN BLOOD 8.6 Low 12.0-15.0 g/dL LAB [id number] HEMATOCRIT (%) I N BLOOD BY AUTOMATED COUNT 26.9 Low 36.0-45.0 % LAB 5805490 ERYTHROCYTE MEAN CORPUSCULAR VOLUME (FL) BY AUTOMATED COUNT 95.4 82.0-98.0 fL LAB [id number] ERYTHROCYTE MEAN CORPUSCULAR HEMOGLOBIN (PG) BY AUTOMATED COUNT 30.5 27.0-33.0 pg LAB [id number] ERYTHROCYTE MEAN CORPUSCULAR HEMOGLOBIN CONCENTRATION (G/DL) BY AUTOMATED 32.0 32.0-35.0 g/dL LAB [id number] ERYTHROCYTE DISTRIBUTION WIDTH (RATIO) BY AUTOMATED COUNT 14.8 11.5-15.0 % LAB [id number] PLATELETS (10*3/UL) IN BLOOD AUTOMATED COUNT 171 150-400 10*3/uL Performed By: #### [id number] ## ## [facility] ([facility]) [address] [place] [address] 30 Observed: 10/10/2024 10:11 PM Status: COMPLETED Source: [facility] Problem: Pain - Adult Goal: Verbalizes/displays adequate [...] and behaviors that affect risk of falls [place] fall precautions as indicated by assessment Educate [...] comorbid symptoms for stability, deterioration, or improvement Collaborate with multidisciplinary team to address [...] goals for the shift include VSS; safety POCT GLUCOSE METER UNSOLICIT ED RESULTS Collected: 10/10/2024 8:04 PM Status: UNK Source: [facility] Order Comment: Waived Testin g in the ED is performed under the ED CLIA certificate #[id number]. TYPE CODE TESTS RESULT OUT OF RANGE REFERENCE UNITS LAB 885 POCT GLUCOSE 289 High 70-105 mg/dL Result Comment: [email or web address] Performed By: #### [id number] #### [facility] ([facility]) [address] [place] [address] NURSNOTE Observed: 10/10/2024 6:15 PM Status: COMPLETED Source: [facility] Pt was to discharge today bu t is delayed by home O2 order and a med that needs changed, IV access d/c'd per order earlier, MD aware of all of this, pt agreeable and understanding. No further issues noted. POCT GLUCOSE METER UNSOLICIT ED RESULTS Collected: 10/10/2024 4:43 PM Status: UNK Source: [facility] Order Comment: Waived Testin g in the ED is performed under the ED CLIA certificate #[id number]. TYPE CODE TESTS RESULT OUT OF RANGE REFERENCE UNITS LAB 885 POCT GLUCOSE 320 High 70-105 mg/dL Result Comment: [email or web address] Performed By: #### [id number] #### [facility] ([facility]) [address] [place] [address] 30 Observed: 10/10/2024 3:38 PM Status: COMPLETED Source: [facility] Daily Case Management Update Multidisciplinary rounds have been completed. Barriers to Discharge: nearly medically ready/discharge pulled today. Await clarification on medications. Dc Plan : Home, resume [facility]. TG called Rusty @ [facility] agreeable to provide Home O2. Scripts/Orders/Progress Notes reviewed with Rusty per phone. Rusty aware that pt lives in [facility]. Await Script Dx to be fixed [...] Score: PT Recommendations: OT Recommendations: New Consults: PROGRESS Observed: 10/10/2024 2:48 PM Status: COMPLETED Source: [facility] This report has been cancell ed. PROGRESS Observed: 10/10/2024 1:43 PM Status: COMPLETED Source: [facility] Patient is currently enrolle d with [facility]; updates have been sent. A follow-up phone call confirmed that the patient remains active and is eligible to resume services. POCT GLUCOSE METER UNSOLICIT ED RESULTS Collected: 10/10/2024 11:51 AM Status: UNK Source: [facility] Order Comment: Waived Testin g in the ED is performed under the ED CLIA certificate #[id number]. TYPE CODE TESTS RESULT OUT OF RANGE REFERENCE UNITS LAB 885 POCT GLUCOSE 338 High 70-105 mg/dL Result Comment: [email or web address] Performed By: #### [id number] #### [facility] ([facility]) [address] [place] [address] PROGRESS Observed: 10/10/2024 11:35 AM Status: COMPLETED Source: [facility] 10/10/24 1115 Home Oxygen Therapy Evaluation Pulse Oximetry on room air at Rest 91 Pulse Ox on O2 with nasal cannula while at rest 94 (2L) Pulse Ox on room air while walking 84 Pulse Ox on O2 with nasal cannula while walking 93 (4L) Patient Qualification for home oxygen Qualifies 30 Observed: 10/10/2024 11:05 AM Status: COMPLETED Source: [facility] The patient is Moderately St able - Low risk of patient condition declining [...] or baseline comfort level Outcome: Progressing . DS Observed: 10/10/2024 10:11 AM Status: COMPLETED Source: [facility] Hospital Medicine Discharge Summary Final Discharge Diagnosis: Right lower lobe pneumonia Uncontrolled hyperglycemia with underlying type 2 diabetes mellitus Chronic kidney disease stage II-III Hyperlipidemia Hypothyroidism Hypertension Class III obesity Mildly elevated troponin likely supply/demand mismatch Anemia likely chronic Admission Diagnosis: NSTEMI (non-ST elevated myocardial infarction) ([facility]) [I21.4] Hospital course: Mary Jane Schaeffer is a 54 y.o. female with medical history notable for mild CAD (cath 2020), T2DM (9.7%), HTN, HLD, presented with three days of [...] Rocephin and doxycycline and she will continue on discharge cefpodoxime and doxycycline for 3 more days. Patient has mild allergy to doxycycline seems with Benadryl he was able to tolerate. Patient also treated for uncontrolled hyperglycemia with insulin drip initially and then transition to Lantus. On discharge patient to continue her insulin pump at home. Patient had O2 evaluation and qualified for 2 L nasal cannula at rest [...] Center 11/09/2024 1:45 PM Rebeca Valadez MD [facility] [place] [facility] Your medication list START taking these [...] Medications These medications were sent to [facility] - [address] [place] [address] [address] [facility] [place] [address], [facility] [address] atorvastatin 80 mg tablet cefpodoxime 200 mg tablet diphenhydrAMINE 25 mg capsule doxycycline 50 mg tablet Authumn is allergic to sulfamethoxazole-trimethoprim, atorvastatin, azithromycin, cefprozil, ciprofloxacin, egg, keflex [cephalexin], moxifloxacin, other, penicillins, percocet [oxycodone-acetaminophen], simvastatin, soy, aspirin, and doxycycline. Disposition: Home or Self Care () Discharge Condition: Stable Code Status: Full Code Diagnostic Results Hematology: Results from last 7 days Lab Units 10/10/2432110/09/2440810/08/244 10/07/24 0606 WBC AUTO 10*3/uL -- 4.95 -- 9.59 HEMOGLOBIN g/dL 8.5* 8.4* < > 8.4* HEMATOCRIT % 26.2* 25.9* < > 27.0* MCV fL -- 94.9 -- 99.3* PLATELETS AUTO 10*3/uL -- 146* -- 178 < > = values in this interval not displayed. Chemistry: Results from last 7 days Lab Units 10/10/2432110/09/24408 09/09/25 0444 SODIUM mmol/L 141 137 140 POTASSIUM [...] Blood pressure 142/65, pulse 75, temperature 36.3 ???C (97.3 ???F), temperature source Temporal, resp. rate 18, height [...] and documentation was 60 minutes. Signed Ravinder Chapman MD [facility] Medicine 10/10/2024 10:11 AM CC: JOSE Rocha POCT GLUCOSE METER UNSOLICIT ED RESULTS Collected: 10/10/2024 7:22 AM Status: UNK Source: [facility] Order Comment: Waived Testin g in the ED is performed under the ED CLIA certificate #[id number]. TYPE CODE TESTS RESULT OUT OF RANGE REFERENCE UNITS LAB 885 POCT GLUCOSE 131 High 70-105 mg/dL Result Comment: [email or web address] Performed By: #### [id number] #### [facility] ([facility]) [address] [place] [address] BASIC METABOLIC PANEL Collected: 2024 3:22 AM Status: UNK Source: [facility] TYPE CODE TESTS RESULT OUT OF RANGE REFERENCE UNITS LAB [id number] SODIUM (MMOL/L) IN SER/PLAS 141 136-145 mmol/L LAB [id number] POTASSIUM (MMOL/L) IN SER/PLAS 3.5 3.5-5.1 mmol/L LAB 6941050 CHLORIDE (MMOL/L) IN SER/PLAS 109 High 98-107 mmol/L LAB 3017091 CARBON DIOXIDE, TOTAL (MMOL/L) IN SER/PLAS 24 21-31 mmol/L LAB [id number] UREA NITROGEN (MG/DL) IN SER/PLAS 55 High 7-25 mg/dL LAB [id number] CREATININE (MG/DL) IN SER/PLAS 1.46 High 0.60-1.20 mg/dL LAB 2057209 GLUCOSE (MG/DL) IN SER/PLAS 119 High 70-100 mg/dL LAB 1350280 CALCIUM (MG/DL) IN SER/PLAS 8.1 Low 8.6-10.3 mg/dL LAB 1969112 ANION GAP IN SER/PLAS 12 7-20 mmol/L LAB [id number] GLOMERULAR FILTRATION RATE ML/MIN/1.73 SQ M.PREDICTED 42.0 Low >60.0 mL/min/ 1.73m*2 Result Comment: [facility]???s estimated glomerular filtration rate (eGFR) will no longer include consideration of race in its calculation. The National Kidney Foundation???s eGFR Task Force developed new recommendations for [...] disproportionately affect any one group of individuals. LAB 0563656 UREA NITROGEN/CREA TININE (MASS RATIO) IN SER/PLAS 37.7 NA Performed By: #### [id number] ### # [facility] ([facility]) [address] [place] [address] HEMOGLOBIN AND HEMATOCRIT, BLOOD Collected: 10/10/2024 3:22 AM Status: UNK Source: [facility] TYPE CODE TESTS RESULT OUT OF RANGE REFERENCE UNITS LAB [id number] HEMOGLOBIN (G/DL) IN BLOOD 8.5 Low 12.0-15.0 g/dL LAB 4506613 HEMATOCRIT (%) IN BLOOD BY AUTOMATED COUNT 26.2 Low 36.0-45.0 % Performed By: #### [id number] ## ## [facility] ([facility]) [address] [place] [address] POCT GLUCOSE METER UNSOLICIT ED RESULTS Collected: 10/09/2024 9:06 PM Status: UNK Source: [facility] Order Comment: Waived Testin g in the ED is performed under the ED CLIA certificate #[id number]. TYPE CODE TESTS RESULT OUT OF RANGE REFERENCE UNITS LAB 885 POCT GLUCOSE 204 High 70-105 mg/dL Result Comment: [email or web address] Performed By: #### [id number] #### [facility] (BEAKER) [address] [place] [address] 30 Observed: 10/09/2024 8:11 PM Status: COMPLETED Source: [facility] Problem: Pain - Adult Goal: Verbalizes/displays adequate comfort level or baseline comfort level Outcome: Progressing Problem: Safety - Adult Goal: Free from fall injury Outcome: Progressing Flowsheets (Taken 10/09/20241999) Free from fall injury: Assess patient frequently for physical needs Identify cognitive and physical deficits and behaviors that affect risk of falls [place] fall precautions as indicated by assessment Educate [...] or improved Outcome: Progressing Flowsheets (Taken 10/09/2024 1940) Care Plan - Patient's Chronic Conditions and Co-Morbidity Symptoms are Monitored and Maintained or Improved: Monitor and assess patient's chronic conditions and comorbid symptoms for stability, deterioration, or improvement Collaborate with multidisciplinary team to address [...] goals for the shift include VSS, safety POCT GLUCOSE METER UNSOLICIT ED RESULTS Collected: 10/09/2024 3:49 PM Status: UNK Source: [facility] Order Comment: Waived Testin g in the ED is performed under the ED CLIA certificate #[id number]. TYPE CODE TESTS RESULT OUT OF RANGE REFERENCE UNITS LAB 885 POCT GLUCOSE 312 High 70-105 mg/dL Result Comment: [email or web address] Performed By: #### [id number] #### [facility] ([facility]) [address] [place] [address] POCT GLUCOSE METER UNSOLICIT ED RESULTS Collected: 10/09/2024 11:34 AM Status: UNK Source: [facility] Order Comment: Waived Testin g in the ED is performed under the ED CLIA certificate #[id number]. TYPE CODE TESTS RESULT OUT OF RANGE REFERENCE UNITS LAB 885 POCT GLUCOSE 305 High 70-105 mg/dL Result Comment: [email or web address] Performed By: #### [id number] #### [facility] [address] [place] [address] PROGRESS Observed: 10/09/2024 10:41 AM Status: COMPLETED Source: [facility] continue oral antihypertensi ves PROGRESS Observed: 10/09/2024 10:41 AM Status: COMPLETED Source: [facility] BMI 44.12 --> 48.01 PROGRESS Observed: 10/09/2024 10:41 AM Status: COMPLETED Source: [facility] uncontrolled with hyperglyce jose luis due to noncompliance of insulin Normally has an insulin pump but she left at home Insulin drip was discontinued and patient switched to 50 Lantus twice daily will increase the dose today to 60 twice daily. Patient can continue her home insulin pump on discharge A1c 9.0 PROGRESS Observed: 10/09/2024 10:41 AM Status: COMPLETED Source: [facility] reports allergy/intolerance of statins Continue fenofibrate PROGRESS Observed: 10/09/2024 10:41 AM Status: COMPLETED Source: [facility] Creatinine seems at baseline PROGRESS Observed: 10/09/2024 10:41 AM Status: COMPLETED Source: [facility] monitor hemoglobin, transfus e for hemoglobin less than 7 Monitor clinically for source of bleeding PROGRESS Observed: 10/09/2024 10:41 AM Status: COMPLETED Source: [facility] continue PPI PROGRESS Observed: 10/09/2024 10:41 AM Status: COMPLETED Source: [facility] Continue rate control medica tions with Lopressor PROGRESS Observed: 10/09/2024 10:41 AM Status: COMPLETED Source: [facility] continue levothyroxine PROGRESS Observed: 10/09/2024 10:41 AM Status: COMPLETED Source: [facility] Continue treatment with ceft riaxone and doxycycline, follow-up culture results Add benadryl to use with doxycycline for allergic reaction PROGRESS Observed: 10/09/2024 10:41 AM Status: COMPLETED Source: [facility] Repeat troponin Discontinue heparin drip Perform stress test in outpatient post recovery from acute illness PROGRESS Observed: 10/09/2024 10:38 AM Status: COMPLETED Source: [facility] Hospital Medicine Daily Progress Note - 10/09/2024 10:38 AM; Room: [address] [place] [address] Admission: 10/06/2024 7:39 PM; Length of stay: 3 days THE HOSPITALIST TEAM PREFERS TO USE [employer]tree FOR NON-URGENT COMMUNICATION 7AM-7PM. IF I DO NOT RESPOND WITHIN 20 MINUTES OR URGENT MATTERS, PLEASE CALL THROUGH THE DETECTIVE [place]. FROM 7PM-7AM, PLEASE PAGE [phone](COVR). Code Status: Full Code Barriers to Discharge: [...] Patient Position: Lying) Pulse 80 Temp 36.5 ???C (97.7 ???F) (Temporal) Resp 20 Intake/Output Summary (Last 24 hours) at 10/09/2024 1038 Last data filed at 10/09/2024 0820 Gross per 24 hour Intake 800 ml Output 2450 ml Net -1650 ml Physical Exam Cardiovascular: Rate and Rhythm: Normal rate and regular rhythm. Pulmonary: Breath sounds: Rales present. Neurological: Mental Status: She is alert. Estimated body mass index is 47.66 kg/m??? as calculated from the following: Height as of this encounter: 1.6 m (5' 2.99 ). Weight as of this encounter: 122 kg (268 lb 15.4 oz). Assessment and Plan Assessment & Plan NSTEMI (non-ST elevated myocardial infarction) ([facility]) Repeat troponin Discontinue heparin drip Perform stress [...] fenofibrate Insulin dependent type 2 diabetes mellitus ([facility]) uncontrolled with hyperglycemia due to noncompliance of [...] Chronic kidney disease (CKD), stage III (moderate) ([facility]) Creatinine seems at baseline GERD (gastroesophageal reflux [...] LDL 121 10/07/2024 No results found for: [id number] , IRON , TIBC , C3 , C4 , BRITTANY , CANCA , ASO , PSA , CEA , CA125 , CA199 , AFP , CA153 Imaging Complete Echo (TTE) w/wo Imaging Agent, Strain, 3D, Bubble Study 1 1 [facility] Heart Station [address] [place] [address] [phone] (fax) Echocardiogram-[facility] Name: MARY JANE SCHAEFFER Study Date: 10/07/2024 02:33 PM B/P: 137 mmHg/53 mmHg HR: 77 bpm Date of : 1970 Location: [facility] Height: 63 in. Age: 54 year(s) [...] small pericardial effusion. Procedure Staff Reading Group: [facility] Referring Physician: RAVINDER CHAPMAN Equipment Analyst: ERMIAS Mckee Ordering Physician: JAKE BUCKLEY 12 [...] Discharge Planning Expected Discharge Disposition: Home-Health Care [facility] (06) Signed Ravinder Chapman MD, 3rd year medical student Hospital Medicine 10/09/2024 10:38 AM As the teaching physician, I have personally performed or re-performed the history of present illness, physical exam and medical decision-making activities of the encounter and verified the medical student's documentation. I made pertinent changes as necessary to ensure accurate documentation. There may be additional comments below. 30 Observed: 10/09/2024 9:53 AM Status: COMPLETED Source: [facility] Problem: Chronic Conditions and Co-morbidities Goal: Patient's chronic conditions and co-morbidity symptoms are monitored and maintained or improved Outcome: Progressing Flowsheets (Taken 10/09/2024 08) Care Plan - Patient's Chronic Conditions and Co-Morbidity Symptoms are Monitored and Maintained or Improved: Monitor and assess patient's chronic conditions and comorbid symptoms for stability, deterioration, or improvement Collaborate with multidisciplinary team to address [...] barriers to discharge with patient and caregiver The patient is Moderately Stable - Low risk of patient condition declining or worsening The patient's goals for the shift include Figure out a plan The clinical goals for the shift include VSS, safety Over the shift, the patient did not make progress toward the following goals. POCT GLUCOSE METER UNSOLICIT ED RESULTS Collected: 10/09/2024 7:51 AM Status: UNK Source: [facility] Order Comment: Waived Testin g in the ED is performed under the ED CLIA certificate #[id number]. TYPE CODE TESTS RESULT OUT OF RANGE REFERENCE UNITS LAB 885 POCT GLUCOSE 299 High 70-105 mg/dL Result Comment: [email or web address] Performed By: #### [id number] #### [facility] ([facility]) [address] [place] [address] BASIC METABOLIC PANEL Collected: 2024 4:09 AM Status: UNK Source: [facility] TYPE CODE TESTS RESULT OUT OF RANGE REFERENCE UNITS LAB [id number] SODIUM (MMOL/L) IN SER/PLAS 137 136-145 mmol/L LAB [id number] POTASSIUM (MMOL/L) IN SER/PLAS 3.7 3.5-5.1 mmol/L LAB 9451888 CHLORIDE (MMOL/L) IN SER/PLAS 107 98-107 mmol/L LAB 5503361 CARBON DIOXIDE, TOTAL (MMOL/L) IN SER/PLAS 20 Low 21-31 mmol/L LAB 4546062 UREA NITROGEN (MG/DL) IN SER/PLAS 68 High 7-25 mg/dL LAB 5401026 CREATININE (MG/DL) IN SER/PLAS 1.67 High 0.60-1.20 mg/dL LAB 9929582 GLUCOSE (MG/DL) IN SER/PLAS 303 High 70-100 mg/dL LAB 6563410 CALCIUM (MG/DL) IN SER/PLAS 7.9 Low 8.6-10.3 mg/dL LAB [id number] ANION GAP IN SER/PLAS 14 7-20 mmol/L LAB [id number] GLOMERULAR FILTRATION RATE ML/MIN/1.73 SQ M.PREDICTED 35.7 Low >60.0 mL/min/ 1.73m*2 Result Comment: [facility]???s estimated glomerular filtration rate (eGFR) will no longer include consideration of race in its calculation. The [employer]???s eGFR Task Force developed new recommendations for [...] disproportionately affect any one group of individuals. LAB 2785866 UREA NITROGEN/CREA TININE (MASS RATIO) IN SER/PLAS 40.7 NA Performed By: #### [id number] ### # [facility] ([facility]) [address] [place] [address] CBC Collected: 10/09/2024 4:09 AM Status: UN K Source: [facility] TYPE CODE TESTS RESULT OUT OF RANGE REFERENCE UNITS LAB 0271318 LEUKOCYTES(10*3/ U L) IN BLOOD BY AUTOMATED COUNT 4.95 4.00-10.60 10*3/uL LAB 6112117 ERYTHROCYTES (10*6/UL) IN BLOOD BY AUTOMATED COUNT 2.73 Low 3.80-5.00 10*6/uL LAB 4202921 HEMOGLOBIN (G/DL ) IN BLOOD 8.4 Low 12.0-15.0 g/dL LAB 1006338 HEMATOCRIT (%) I N BLOOD BY AUTOMATED COUNT 25.9 Low 36.0-45.0 % LAB 6305594 ERYTHROCYTE MEAN CORPUSCULAR VOLUME (FL) BY AUTOMATED COUNT 94.9 82.0-98.0 fL LAB 1198977 ERYTHROCYTE MEAN CORPUSCULAR HEMOGLOBIN (PG) BY AUTOMATED COUNT 30.8 27.0-33.0 pg LAB 0015157 ERYTHROCYTE MEAN CORPUSCULAR HEMOGLOBIN CONCENTRATION (G/DL) BY AUTOMATED 32.4 32.0-35.0 g/dL LAB 9230694 ERYTHROCYTE DISTRIBUTION WIDTH (RATIO) BY AUTOMATED COUNT 15.2 High 11.5-15.0 % LAB 7686145 PLATELETS (10*3/UL) IN BLOOD AUTOMATED COUNT 146 Low 150-400 10*3/uL Performed By: #### [id number] ## ## [facility] ([facility]) [address] [place] [address] POCT GLUCOSE METER UNSOLICIT ED RESULTS Collected: 10/08/2024 8:31 PM Status: UNK Source: [facility] Order Comment: Waived Testin g in the ED is performed under the ED CLIA certificate #[id number]. TYPE CODE TESTS RESULT OUT OF RANGE REFERENCE UNITS LAB 885 POCT GLUCOSE 285 High 70-105 mg/dL Result Comment: [email or web address] Performed By: #### [id number] #### [facility] ([facility]) [address] [place] [address] 30 Observed: 10/08/2024 7:58 PM Status: COMPLETED Source: [facility] Problem: Pain - Adult Goal: Verbalizes/displays adequate comfort level or baseline comfort level Outcome: Progressing Problem: Safety - Adult Goal: Free from fall injury Outcome: Progressing Flowsheets (Taken 10/08/2024 1900) Free from fall injury: Assess patient frequently for physical needs Identify cognitive and physical deficits and behaviors that affect risk of falls [place] fall precautions as indicated by assessment Educate [...] barriers to discharge with patient and caregiver Problem: Chronic Conditions and Co-morbidities Goal: Patient's chronic conditions and co-morbidity symptoms are monitored and maintained or improved Outcome: Progressing Flowsheets (Taken 10/08/2024 1900) Care Plan - Patient's Chronic Conditions and Co-Morbidity Symptoms are Monitored and Maintained or Improved: Monitor and assess patient's chronic conditions and comorbid symptoms for stability, deterioration, or improvement Collaborate with multidisciplinary team to address [...] goals for the shift include VSS, safety 30 Observed: 10/08/2024 6:42 PM Status: COMPLETED Source: [facility] Daily Case Management Update Multidisciplinary rounds have been completed. Barriers to Discharge: Pending medical clearance for discharge. Hep and insulin gtts d/c'd today. Cardio consulted but have no plans of IP invest/intervent. Will arrange OP follow up and poss OP stress. Likely MR 5. Diet: Dietary Orders (From admission, onward) Start [...] disposition appropriate for patient?: Yes New Consults: POCT GLUCOSE METER UNSOLICIT ED RESULTS Collected: 10/08/2024 4:08 PM Status: UNK Source: [facility] Order Comment: Waived Testin g in the ED is performed under the ED CLIA certificate #[id number]. TYPE CODE TESTS RESULT OUT OF RANGE REFERENCE UNITS LAB 885 POCT GLUCOSE 217 High 70-105 mg/dL Result Comment: [email or web address] Performed By: #### [id number] #### [facility] ([facility]AKER) [address] [place] [address] POCT GLUCOSE METER UNSOLICIT ED RESULTS Collected: 10/08/2024 1:01 PM Status: UNK Source: [facility] Order Comment: Waived Testin g in the ED is performed under the ED CLIA certificate #[id number]. TYPE CODE TESTS RESULT OUT OF RANGE REFERENCE UNITS LAB 885 POCT GLUCOSE 175 High 70-105 mg/dL Result Comment: [email or web address] Performed By: #### [id number] #### [facility] ([facility]ER) [address] [place] [address] POCT GLUCOSE METER UNSOLICIT ED RESULTS Collected: 10/08/2024 11:59 AM Status: UNK Source: [facility] Order Comment: Waived Testin g in the ED is performed under the ED CLIA certificate #[id number]. TYPE CODE TESTS RESULT OUT OF RANGE REFERENCE UNITS LAB 885 POCT GLUCOSE 225 High 70-105 mg/dL Result Comment: [email or web address] Performed By: #### [id number] #### [facility] ([facility]AKER) [address] [place] [address] POCT GLUCOSE METER UNSOLICIT ED RESULTS Collected: 10/08/2024 11:15 AM Status: UNK Source: [facility] Order Comment: Waived Testin g in the ED is performed under the ED CLIA certificate #[id number]. TYPE CODE TESTS RESULT OUT OF RANGE REFERENCE UNITS LAB 885 POCT GLUCOSE 213 High 70-105 mg/dL Result Comment: [email or web address] Performed By: #### [id number] #### [facility] ([facility]) [address] [place] [address] PROGRESS Observed: 10/08/2024 10:17 AM Status: COMPLETED Source: [facility] reports allergy/intolerance of statins Continue fenofibrate PROGRESS Observed: 10/08/2024 10:17 AM Status: COMPLETED Source: [facility] uncontrolled with hyperglyce jose luis due to noncompliance of insulin Normally has an insulin pump but she left at home Will start insulin drip to evaluate insulin requirement and then transition to basal/bolus regimen check hemoglobin A1c Discontinue insulin drip 2 hours after first dose of glargine (Lantus) 50 units BID PROGRESS Observed: 10/08/2024 10:17 AM Status: COMPLETED Source: [facility] BMI 44.12 --> 48.01 PROGRESS Observed: 10/08/2024 10:17 AM Status: COMPLETED Source: [facility] continue levothyroxine PROGRESS Observed: 10/08/2024 10:17 AM Status: COMPLETED Source: [facility] continue PPI PROGRESS Observed: 10/08/2024 10:17 AM Status: COMPLETED Source: [facility] monitor hemoglobin, transfus e for hemoglobin less than 7 Monitor clinically for source of bleeding PROGRESS Observed: 10/08/2024 10:17 AM Status: COMPLETED Source: [facility] baseline unclear, monitor re nal function, monitor I's and O's PROGRESS Observed: 10/08/2024 10:17 AM Status: COMPLETED Source: [facility] continue oral antihypertensi ves PROGRESS Observed: 10/08/2024 10:17 AM Status: COMPLETED Source: [facility] Continue treatment with ceft riaxone and doxycycline, follow-up culture results Add benadryl to use with doxycycline for allergic reaction PROGRESS Observed: 10/08/2024 10:17 AM Status: COMPLETED Source: [facility] Repeat troponin Discontinue heparin drip Perform stress test in outpatient post recovery from acute illness POCT GLUCOSE METER UNSOLICIT ED RESULTS Collected: 10/08/2024 10:12 AM Status: UNK Source: [facility] Order Comment: Waived Testin g in the ED is performed under the ED CLIA certificate #[id number]. TYPE CODE TESTS RESULT OUT OF RANGE REFERENCE UNITS LAB 885 POCT GLUCOSE 201 High 70-105 mg/dL Result Comment: [email or web address] Performed By: #### [id number] #### [facility] ([facility]ER) [address] [place] [address] 30 Observed: 10/08/2024 9:50 AM Status: COMPLETED Source: [facility] The patient is Moderately Un stable - Medium risk of patient condition declining or worsening The patient's goals for the shift include figure out a plan The clinical goals for the shift include VSS, safety Problem: Pain - Adult Goal: Verbalizes/displays adequate comfort level or baseline comfort level Outcome: Progressing Problem: Safety - Adult Goal: Free from fall injury Outcome: Progressing Flowsheets (Taken 10/08/2024 0753) Free from fall injury: Assess patient frequently for physical needs Problem: Discharge Planning Goal: Discharge to home or other facility with appropriate resources Outcome: Progressing Flowsheets (Taken 10/08/2024 0753) Discharge to home or other facility with appropriate resources: Identify barriers to discharge with patient and caregiver Problem: Chronic Conditions and Co-morbidities Goal: Patient's chronic conditions and co-morbidity symptoms are monitored and maintained or improved Outcome: Progressing Flowsheets (Taken 10/08/2024 0753) Care Plan - Patient's Chronic Conditions and Co-Morbidity Symptoms are Monitored and Maintained or Improved: Monitor and assess patient's chronic conditions and comorbid symptoms for stability, deterioration, or improvement POCT GLUCOSE METER UNSOLICIT ED RESULTS Collected: 10/08/2024 9:06 AM Status: UNK Source: [facility] Order Comment: Waived Testin g in the ED is performed under the ED CLIA certificate #[id number]. TYPE CODE TESTS RESULT OUT OF RANGE REFERENCE UNITS LAB 885 POCT GLUCOSE 162 High 70-105 mg/dL Result Comment: [email or web address] Performed By: #### [id number] #### [facility] ([facility]) [address] [place] [address] PROGRESS Observed: 10/08/2024 8:03 AM Status: COMPLETED Source: [facility] Medicine Daily Progress Note - 10/08/2024 8:04 AM; Room: [address] [place] [address] Admission: 10/06/2024 7:39 PM; Length of stay: 2 days THE HOSPITALIST TEAM PREFERS TO USE [employer] FOR NON-URGENT COMMUNICATION 7AM-7PM. IF I DO NOT RESPOND WITHIN 20 MINUTES OR URGENT MATTERS, PLEASE CALL THROUGH THE DETECTIVE [place]. FROM 7PM-7AM, PLEASE PAGE [phone](COVR). Code Status: Full Code Barriers to Discharge: insulin, doxycycline, ceftriaxone Expected Discharge Date: 10/09/2024 Discharge Destination: home Overview Patient is seen for evaluation and management of pneumonia, NSTEMI, type II DM. Indy Schaeffer is a 54 y.o. female presenting with right lower lobe pneumonia, NSTEMI, type II DM, and CKDIII. She states that her shortness of breath has subsided at rest, but is still present on exertion. Cough is also still present and producing yellow-colored sputum. She states that her cough improves when on oxygen. She denies any chest pain in relation to her NSTEMI diagnosis, but notes that she has pain in her chest when she coughs. With regards to her type II DM, she states that she is feeling better after being on insulin drip. Physical Exam Visit Vitals BP 120/53 (BP Location: Left arm, Patient Position: Lying) Pulse 62 Temp 36.3 ???C (97.3 ???F) (Temporal) Resp 18 Intake/Output Summary (Last 24 hours) at 10/08/2024 0804 Last data filed at 10/07/2024 2211 Gross per 24 hour Intake 955 ml Output 650 ml Net 305 ml Physical Exam Cardiovascular: Rate and Rhythm: Normal rate and regular rhythm. Pulmonary: Breath sounds: Rales present. Neurological: Mental Status: She is alert. Estimated body mass index is 48.01 kg/m??? as calculated from the following: Height as of this encounter: 1.6 m (5' 2.99 ). Weight as of this encounter: 123 kg (270 lb 15.1 oz). Assessment and Plan Assessment & Plan NSTEMI (non-ST elevated myocardial infarction) ([facility]) Repeat troponin Discontinue heparin drip Perform stress [...] fenofibrate Insulin dependent type 2 diabetes mellitus ([facility]) uncontrolled with hyperglycemia due to noncompliance of [...] Chronic kidney disease (CKD), stage III (moderate) ([facility]) baseline unclear, monitor renal function, monitor I's [...] LDL 121 10/07/2024 No results found for: [id number] , IRON , TIBC , C3 , C4 , BRITTANY , CANCA , ASO , PSA , CEA , CA125 , CA199 , AFP , CA153 Imaging Complete Echo (TTE) w/wo Imaging Agent, Strain, 3D, Bubble Study 1 1 [facility] Heart Station [address] [place] [address] [phone] (fax) Echocardiogram-[facility] Name: MARY JANE SANTOS Study Date: 10/07/2024 02:33 PM B/P: 137 mmHg/53 mmHg HR: 77 bpm Date of : 1970 Location: [facility] Height: 63 in. Age: 54 year(s) [...] small pericardial effusion. Procedure Staff Reading Group: [facility] Referring Physician: RAVINDER CHAPMAN Equipment Analyst: ERMIAS Mckee Ordering Physician: JAKE BUCKLEY 12 [...] Discharge Planning Expected Discharge Disposition: Home-Health Care [facility] (06) Signed Imer Sherman, 3rd year medical student [facility] Medicine 10/08/2024 8:04 AM As the teaching physician, I have personally performed or re-performed the history of present illness, physical exam and medical decision-making activities of the encounter and verified the medical student's documentation. I made pertinent changes as necessary to ensure accurate documentation. There may be additional comments below. POCT GLUCOSE METER UNSOLICIT ED RESULTS Collected: 10/08/2024 8:00 AM Status: UNK Source: [facility] Order Comment: Waived Testin g in the ED is performed under the ED CLIA certificate #[id number]. TYPE CODE TESTS RESULT OUT OF RANGE REFERENCE UNITS LAB 885 POCT GLUCOSE 182 High 70-105 mg/dL Result Comment: [email or web address] Performed By: #### [id number] #### [facility] ([facility]AKER) [address] [place] [address] POCT GLUCOSE METER UNSOLICIT ED RESULTS Collected: 10/08/2024 7:03 AM Status: UNK Source: [facility] Order Comment: Waived Testin g in the ED is performed under the ED CLIA certificate #[id number]. TYPE CODE TESTS RESULT OUT OF RANGE REFERENCE UNITS LAB 885 POCT GLUCOSE 220 High 70-105 mg/dL Result Comment: [email or web address] Performed By: #### [id number] #### [facility] ([facility]) [address] [place] [address] PROGRESS Observed: 10/08/2024 6:25 AM Status: COMPLETED Source: [facility] Attestation signed by Jake Buckley MD at 10/08/2024 1:19 PM By using the attestations below, the signing [...] additional personal documentation from me. (Dr. Amaya) Cardiology Progress Note Subjective Subjective: Mary Jane Schaeffer was seen and examined at bedside. No acute events noted since last cardiology evaluation. Denies chest pain, palpitations, dyspnea, nausea, diaphoresis. Objective: Patient Vitals for the past 24 hrs: BP Temp Temp src Pulse Resp SpO2 Weight 10/08/24 0550 -- -- -- -- -- -- 123 kg (270 lb 15.1 oz) 10/08/24 0400 120/53 36.3 ???C (97.3 ???F) Temporal 62 18 93 % -- 10/07/24 1940 138/61 35.9 ???C (96.6 ???F) Temporal 82 22 95 % -- 10/07/24 0700 -- 37 ???C (98.6 ???F) Temporal -- -- -- -- Physical Examination: [...] Value Ventricular Rate 78 Atrial Rate 78 SD Interval 138 QRS DURATION 88 QT Interval 398 QTC CALCULATION(BAZETT) 453 P Nu Mine 62 R-Nu Mine 83 T Wave Nu Mine 42 Impression Normal sinus rhythm Nonspecific T wave abnormality Abnormal ECG When compared with ECG of 09-NOV-2020 07:35, Nonspecific T wave abnormality now evident in Anterior leads Confirmed by Steve FABIAN, L.S. (2) on 10/07/2024 12:01:23 PM No results found for: CKTOTAL , CKMB , CKMBINDEX , TROPONINI Complete Echo (TTE) w/wo Imaging Agent, Strain, 3D, Bubble Study Result Date: 10/07/2024 1 1 [facility] Heart Station [address] [place] [address] [phone] (fax) Echocardiogram-[facility] Name: MARY JANE SCHAEFFER Study Date: 10/07/2024 02:33 PM B/P: 137 mmHg/53 mmHg HR: 77 bpm Date of : 1970 Location: [facility] Height: 63 in. Age: 54 year(s) [...] small pericardial effusion. Procedure Staff Reading Group: [facility] Referring Physician: RAVINDER CHAPMAN Equipment Analyst: ERMIAS Mckee Ordering Physician: JAKE BUCKLEY No nuclear medicine results found for the past 12 months Relevant Imaging Results Complete Echo (TTE) w/wo Imaging Agent, Strain, 3D, Bubble Study 1 1 [facility] Heart Station [address] [place] [address] [phone] (fax) Echocardiogram-[facility] Name: MARY JANE SANTOS Study Date: 10/07/2024 02:33 PM B/P: 137 mmHg/53 mmHg HR: 77 bpm Date of : 1970 Location: [facility] Height: 63 in. Age: 54 year(s) [...] small pericardial effusion. Procedure Staff Reading Group: [facility] Referring Physician: RAVINDER CHAPMAN Equipment Analyst: ERMIAS Mckee Ordering Physician: JAKE BUKCLEY 12 lead Normal sinus rhythm Nonspecific T [...] setting of acute illness and HAGMA presumed DKA, peak HS troponin 56 Mild CAD [...] at which time will consider stress testing if appropriate. No further inpatient intervention/investigation planned from a cardiac perspective. Cardiology will sign off. Please re-consult should new questions/concerns arise. While inpatient, maintain telemetry. Electrolyte correction with target potassium 4.0, magnesium 2.0. POCT GLUCOSE METER UNSOLICIT ED RESULTS Collected: 10/08/2024 6:03 AM Status: UNK Source: [facility] Order Comment: Waived Testin g in the ED is performed under the ED CLIA certificate #[id number]. TYPE CODE TESTS RESULT OUT OF RANGE REFERENCE UNITS LAB 885 POCT GLUCOSE 233 High 70-105 mg/dL Result Comment: eproven Performed By: #### [id number] #### [facility] ([facility]) [address] [place] [address] POCT GLUCOSE METER UNSOLICIT ED RESULTS Collected: 10/08/2024 5:08 AM Status: UNK Source: [facility] Order Comment: Waived Testin g in the ED is performed under the ED CLIA certificate #[id number]. TYPE CODE TESTS RESULT OUT OF RANGE REFERENCE UNITS LAB 885 POCT GLUCOSE 209 High 70-105 mg/dL Result Comment: [email or web address] Critical Value Noted Performed By: #### [id number] #### [facility] ([facility]) [address] [place] [address] HEMOGLOBIN AND HEMATOCRIT, BLOOD Collected: 10/08/2024 4:44 AM Status: UNK Source: U [facility] TYPE CODE TESTS RESULT OUT OF RANGE REFERENCE UNITS LAB [id number] HEMOGLOBIN (G/DL) IN BLOOD 7.8 Low 12.0-15.0 g/dL LAB [id number] HEMATOCRIT (%) IN BLOOD BY AUTOMATED COUNT 24.7 Low 36.0-45.0 % Performed By: #### [id number] ## ## [facility] ([facility]) [address] [place] [address] BASIC METABOLIC PANEL Collected: 2024 4:44 AM Status: UNK Source: [facility] TYPE CODE TESTS RESULT OUT OF RANGE REFERENCE UNITS LAB [id number] SODIUM (MMOL/L) IN SER/PLAS 140 136-145 mmol/L LAB 1086108 POTASSIUM (MMOL/L) IN SER/PLAS 4.1 3.5-5.1 mmol/L LAB 1056059 CHLORIDE (MMOL/L) IN SER/PLAS 109 High 98-107 mmol/L LAB 1747022 CARBON DIOXIDE, TOTAL (MMOL/L) IN SER/PLAS 21 21-31 mmol/L LAB [id number] UREA NITROGEN (MG/DL) IN SER/PLAS 65 High 7-25 mg/dL LAB 0772876 CREATININE (MG/DL) IN SER/PLAS 1.78 High 0.60-1.20 mg/dL LAB 5777580 GLUCOSE (MG/DL) IN SER/PLAS 212 High 70-100 mg/dL LAB 3467633 CALCIUM (MG/DL) IN SER/PLAS 8.3 Low 8.6-10.3 mg/dL LAB 1413317 ANION GAP IN SER/PLAS 14 7-20 mmol/L LAB 6776777 GLOMERULAR FILTRATION RATE ML/MIN/1.73 SQ M.PREDICTED 33.1 Low >60.0 mL/min/ 1.73m*2 Result Comment: [facility]???s estimated glomerular filtration rate (eGFR) will no longer include consideration of race in its calculation. The National Kidney Foundation???s eGFR Task Force developed new recommendations for [...] disproportionately affect any one group of individuals. LAB 0525885 UREA NITROGEN/CREA TININE (MASS RATIO) IN SER/PLAS 36.5 NA Performed By: #### [id number] ### # [facility] ([facility]) [address] [place] [address] POCT GLUCOSE METER UNSOLICIT ED RESULTS Collected: 10/08/2024 3:45 AM Status: UNK Source: [facility] Order Comment: Waived Testin g in the ED is performed under the ED CLIA certificate #[id number]. TYPE CODE TESTS RESULT OUT OF RANGE REFERENCE UNITS LAB 885 POCT GLUCOSE 251 High 70-105 mg/dL Result Comment: [email or web address] Performed By: #### [id number] #### [facility] ([facility]) [address] [place] [address] POCT GLUCOSE METER UNSOLICIT ED RESULTS Collected: 10/08/2024 2:48 AM Status: UNK Source: [facility] Order Comment: Waived Testin g in the ED is performed under the ED CLIA certificate #[id number]. TYPE CODE TESTS RESULT OUT OF RANGE REFERENCE UNITS LAB 885 POCT GLUCOSE 256 High 70-105 mg/dL Result Comment: haii Performed By: #### [id number] #### [facility] ([facility]) [address] [place] [address] POCT GLUCOSE METER UNSOLICIT ED RESULTS Collected: 10/08/2024 1:47 AM Status: UNK Source: [facility] Order Comment: Waived Testin g in the ED is performed under the ED CLIA certificate #[id number]. TYPE CODE TESTS RESULT OUT OF RANGE REFERENCE UNITS LAB 885 POCT GLUCOSE 203 High 70-105 mg/dL Result Comment: eproven Performed By: #### [id number] #### [facility] [address] [place] [address] POCT GLUCOSE METER UNSOLICIT ED RESULTS Collected: 10/08/2024 1:15 AM Status: UNK Source: [facility] Order Comment: Waived Testin g in the ED is performed under the ED CLIA certificate #[id number]. TYPE CODE TESTS RESULT OUT OF RANGE REFERENCE UNITS LAB 885 POCT GLUCOSE 188 High 70-105 mg/dL Result Comment: eproven Performed By: #### [id number] #### [facility] ([facility]) [address] [place] [address] POCT GLUCOSE METER UNSOLICIT ED RESULTS Collected: 10/08/2024 12:38 AM Status: UNK Source: [facility] Order Comment: Waived Testin g in the ED is performed under the ED CLIA certificate #[id number]. TYPE CODE TESTS RESULT OUT OF RANGE REFERENCE UNITS LAB 885 POCT GLUCOSE 199 High 70-105 mg/dL Result Comment: [email or web address] Performed By: #### [id number] #### [facility] ([facility]) [address] [place] [address] POCT GLUCOSE METER UNSOLICIT ED RESULTS Collected: 10/07/2024 11:40 PM Status: UNK Source: [facility] Order Comment: Waived Testin g in the ED is performed under the ED CLIA certificate #[id number]. TYPE CODE TESTS RESULT OUT OF RANGE REFERENCE UNITS LAB 885 POCT GLUCOSE 263 High 70-105 mg/dL Result Comment: [email or web address] Critical Value Noted Performed By: #### [id number] #### [facility] [address] [place] [address] POCT GLUCOSE METER UNSOLICIT ED RESULTS Collected: 10/07/2024 10:35 PM Status: UNK Source: [facility] Order Comment: Waived Testin g in the ED is performed under the ED CLIA certificate #[id number]. TYPE CODE TESTS RESULT OUT OF RANGE REFERENCE UNITS LAB 885 POCT GLUCOSE 279 High 70-105 mg/dL Result Comment: [email or web address] Performed By: #### [id number] #### [facility] ([facility]) [address] [place] [address] POCT GLUCOSE METER UNSOLICIT ED RESULTS Collected: 10/07/2024 9:32 PM Status: UNK Source: [facility] Order Comment: Waived Testin g in the ED is performed under the ED CLIA certificate #[id number]. TYPE CODE TESTS RESULT OUT OF RANGE REFERENCE UNITS LAB 885 POCT GLUCOSE 289 High 70-105 mg/dL Result Comment: [email or web address] Performed By: #### [id number] #### [facility] ([facility]) [address] [place] [address] 30 Observed: 10/07/2024 9:02 PM Status: COMPLETED Source: [facility] Problem: Pain - Adult Goal: Verbalizes/displays adequate comfort level or baseline comfort level Outcome: Progressing Problem: Safety - Adult Goal: Free from fall injury Outcome: Progressing Flowsheets (Taken 10/07/20241999) Free from fall injury: Assess patient frequently for physical needs Identify cognitive and physical deficits and behaviors that affect risk of falls [place] fall precautions as indicated by assessment Educate [...] barriers to discharge with patient and caregiver Problem: Chronic Conditions and Co-morbidities Goal: Patient's chronic conditions and co-morbidity symptoms are monitored and maintained or improved Outcome: Progressing Flowsheets (Taken 10/07/20241999) Care Plan - Patient's Chronic Conditions and Co-Morbidity Symptoms are Monitored and Maintained or Improved: Monitor and assess patient's chronic conditions and comorbid symptoms for stability, deterioration, or improvement Collaborate with multidisciplinary team to address [...] goals for the shift include VSS, safety POCT GLUCOSE METER UNSOLICIT ED RESULTS Collected: 10/07/2024 8:33 PM Status: UNK Source: [facility] Order Comment: Waived Testin g in the ED is performed under the ED CLIA certificate #[id number]. TYPE CODE TESTS RESULT OUT OF RANGE REFERENCE UNITS LAB 885 POCT GLUCOSE 277 High 70-105 mg/dL Result Comment: [email or web address] Performed By: #### [id number] #### [facility] ([facility]) [address] [place] [address] POCT GLUCOSE METER UNSOLICIT ED RESULTS Collected: 10/07/2024 7:30 PM Status: UNK Source: [facility] Order Comment: Waived Testin g in the ED is performed under the ED CLIA certificate #[id number]. TYPE CODE TESTS RESULT OUT OF RANGE REFERENCE UNITS LAB 885 POCT GLUCOSE 319 High 70-105 mg/dL Result Comment: [email or web address] Performed By: #### [id number] #### [facility] [address] [place] [address] POCT GLUCOSE METER UNSOLICIT ED RESULTS Collected: 10/07/2024 6:33 PM Status: UNK Source: [facility] Order Comment: Waived Testin g in the ED is performed under the ED CLIA certificate #[id number]. TYPE CODE TESTS RESULT OUT OF RANGE REFERENCE UNITS LAB 885 POCT GLUCOSE 362 High 70-105 mg/dL Result Comment: [email or web address] Performed By: #### [id number] #### [facility] ([facility]) [address] [place] [address] POCT GLUCOSE METER UNSOLICIT ED RESULTS Collected: 10/07/2024 5:41 PM Status: UNK Source: [facility] Order Comment: Waived Testin g in the ED is performed under the ED CLIA certificate #[id number]. TYPE CODE TESTS RESULT OUT OF RANGE REFERENCE UNITS LAB 885 POCT GLUCOSE 375 High 70-105 mg/dL Result Comment: [email or web address] Performed By: #### [id number] #### [facility] [address] [place] [address] POCT GLUCOSE METER UNSOLICIT ED RESULTS Collected: 10/07/2024 4:40 PM Status: UNK Source: [facility] Order Comment: Waived Testin g in the ED is performed under the ED CLIA certificate #[id number]. TYPE CODE TESTS RESULT OUT OF RANGE REFERENCE UNITS LAB 885 POCT GLUCOSE 406 High 70-105 mg/dL Result Comment: [email or web address] Performed By: #### [id number] #### [facility] ([facility]) [address] [place] [address] ANTI-XA (HEPARIN LEVEL) Collected: 10/07/2024 4:08 PM Status: UNK Source: [facility] Order Comment: Check anti-Xa level every 6 hours while on heparin infusion, or per protocol. TYPE CODE TESTS RESULT OUT OF RANGE REFERENCE UNITS LAB [id number] HEPARIN UNFRACTIONATED (U/ML) IN PPP BY CHROMOGENIC METHOD 0.65 0.3-0.7 IU/mL Result Comment: Rivaroxaban and Apixaban will interfere with the anti Xa assay used to monitor UFH and LMWH. Performed By: #### [id number] ## ## [facility] ([facility]) [address] [place] [address] POCT GLUCOSE METER UNSOLICIT ED RESULTS Collected: 10/07/2024 3:38 PM Status: UNK Source: [facility] Order Comment: Waived Testin g in the ED is performed under the ED CLIA certificate #[id number]. TYPE CODE TESTS RESULT OUT OF RANGE REFERENCE UNITS LAB 885 POCT GLUCOSE 330 High 70-105 mg/dL Result Comment: [email or web address] Performed By: #### [id number] #### [facility] ([facility]) [address] [place] [address] POCT GLUCOSE METER UNSOLICIT ED RESULTS Collected: 10/07/2024 2:15 PM Status: UNK Source: [facility] Order Comment: Waived Testin g in the ED is performed under the ED CLIA certificate #[id number]. TYPE CODE TESTS RESULT OUT OF RANGE REFERENCE UNITS LAB 885 POCT GLUCOSE 374 High 70-105 mg/dL Result Comment: [email or web address] Performed By: #### [id number] #### [facility] [address] [place] [address] POCT GLUCOSE METER UNSOLICIT ED RESULTS Collected: 10/07/2024 1:35 PM Status: UNK Source: [facility] Order Comment: Waived Testin g in the ED is performed under the ED CLIA certificate #[id number]. TYPE CODE TESTS RESULT OUT OF RANGE REFERENCE UNITS LAB 885 POCT GLUCOSE 401 High 70-105 mg/dL Result Comment: [email or web address] Performed By: #### [id number] #### [facility] [address] [place] [address] POCT GLUCOSE METER UNSOLICIT ED RESULTS Collected: 10/07/2024 12:25 PM Status: UNK Source: [facility] Order Comment: Waived Testin g in the ED is performed under the ED CLIA certificate #[id number]. TYPE CODE TESTS RESULT OUT OF RANGE REFERENCE UNITS LAB 885 POCT GLUCOSE 447 High 70-105 mg/dL Result Comment: [email or web address] Performed By: #### [id number] #### [facility] [address] [place] [address] LIPID PANEL Collected: 10/07/2024 12:04 PM Status: U NK Source: [facility] TYPE CODE TESTS RESULT OUT OF RANGE REFERENCE UNITS LAB [id number] TRIGLYCERIDE (MG/DL) IN SER/PLAS 221 High <150 mg/dL Result Comment: TRIGLYCERIDE REFERENCE RANGE: 20 YEARS AND OLDER CARDIOVASCULAR RISK LESS THAN 150 mg/dL LOW RISK 150 TO 199 mg/dL BORDERLINE RISK 200 mg/dL AND GREATER HIGH RISK LAB 2605063 CHOLESTEROL (MG/DL) IN SER/PLAS 147 120-200 mg/dL LAB 2939347 CHOLESTEROL IN LDL (MG/DL) IN SERUM OR PLASMA BY CALCULATION 77 0-160 mg/dL LAB 4532183 CHOLESTEROL IN HDL (MG/DL) IN SER/PLAS 26 23-92 mg/dL LAB 9653663 NON HDL CHOL. (LDL+VLDL) 121 NA LAB 7366754 TOTAL VLDL-C 44 High 0-40 mg/dL LAB 2481 CHOL/HDL 5.7 mg/dL Performed By: #### [id number] ### # [facility] ([facility]) [address] [place] [address] HIGH SENSITIVITY TROPONIN I Collected: 10/07/2024 12:04 PM Status: UNK Source: [facility] TYPE CODE TESTS RESULT OUT OF RANGE REFERENCE UNITS LAB 3630 HS TROPONIN I (NG/L) 53 High Alert <15 ng/L Performed By: #### [id number] # ### [facility] ([facility]) [address] [place] [address] ANTI-XA (HEPARIN LEVEL) Collected: 10/07/2024 12:04 P M Status: UNK Source: [facility] Order Comment: Check anti-Xa level every 6 hours while on heparin infusion, or per protocol. TYPE CODE TESTS RESULT OUT OF RANGE REFERENCE UNITS LAB 2395581 HEPARIN UNFRACTIONATED (U/ML) IN PPP BY CHROMOGENIC METHOD 0.57 0.3-0.7 IU/mL Result Comment: Rivaroxaban and Apixaban will interfere with the anti Xa assay used to monitor UFH and LMWH. Performed By: #### [id number] ## ## [facility] ([facility]) [address] [place] [address] PROGRESS Observed: 10/07/2024 11:13 AM Status: COMPLETED Source: [facility] Attestation signed by Erin Umaña RD at 10/07/2024 12:46 PM By using this attestation, the signing clinician [...] main ones are eggs and soy. Eggs tolerated when baked in other products but not by themselves. Soy causes throat closure. She reports having many other random food intolerances for various reasons - she only wants eggs and soy added to allergens. RD updated allergy list. Adult Nutrition Assessment: Name: Mary Jane Foy [facility] Date: 1970 Date of Visit: 10/07/24 Admission Dx: NSTEMI (non-ST elevated myocardial infarction) ([facility]) [I21.4] Reason for assessment: high risk (wt and po intake) Information obtained from: patient, medical record, and nursing Past Medical History: Diagnosis Date Abnormal ECG Asthma Diabetes mellitus ([facility]) Hyperlipidemia Current Medications: allopurinol, 300 mg, oral, [...] NA 136 10/07/2024 0101 K 5.1 10/07/2024 010 MG 1.8 02/27/2024 0508 HGB 8.4 (L) [...] she shops for help with reading nutrition labels for allergens. She states that she follows a [...] ideal body weight (52.3 kg) Calorie needs: 1163-5039 kcals/day based on Equation: 25-30 kcal/kg Protein [...] of Nutrition and Dietetics (AND) and the [place] [employer] Enteral and Parenteral Nutrition (ASPEN). Nutrition Education: Diet literature: Diabetes Nutrition Therapy (explained and reviewed reading nutrition labels and discussed the importance of regular scheduled meals and snacks). Discussed sources of CHO and encouraged pt to decrease intake of sugary beverages, including juice. Provided Reading Nutrition Labels and CHO Counting handout. Demonstrated label reading and reviewed [...] To reach the Clinical Dietitian, please utilize [employer] chat Friday-Friday from 8AM-4PM or call extension [phone]. For weekends (Friday-Friday) and holidays, the Clinical Dietitian can be reached via pager ([phone]) from 9AM-3PM. The Clinical Nutrition Department is unable to respond to [employer] chat messages on Sundays and s. POCT GLUCOSE METER UNSOLICIT ED RESULTS Collected: 10/07/2024 10:44 AM Status: UNK Source: [facility] Order Comment: Waived Testin g in the ED is performed under the ED CLIA certificate #[id number]. TYPE CODE TESTS RESULT OUT OF RANGE REFERENCE UNITS LAB 885 POCT GLUCOSE 428 High 70-105 mg/dL Result Comment: [email or web address] Performed By: #### [id number] #### [facility] ([facility]) [address] [place] [address] PROGRESS Observed: 10/07/2024 10:34 AM Status: COMPLETED Source: [facility] monitor hemoglobin, transfus e for hemoglobin less than 7 Monitor clinically for source of bleeding PROGRESS Observed: 10/07/2024 10:34 AM Status: COMPLETED Source: [facility] continue PPI PROGRESS Observed: 10/07/2024 10:34 AM Status: COM PLETED Source: [facility] BMI 44.12 PROGRESS Observed: 10/07/2024 10:34 AM Status: COMPLETED Source: [facility] uncontrolled with hyperglyce jose luis due to noncompliance of insulin Normally has an insulin pump but she left at home Will start insulin drip to evaluate insulin requirement and then transition to basal/bolus regimen check hemoglobin A1c PROGRESS Observed: 10/07/2024 10:34 AM Status: COMPLETED Source: [facility] Continue treatment with ceft riaxone and doxycycline, follow-up culture results Add benadryl to use with doxycycline for allergic reaction Obtain chest X-ray PROGRESS Observed: 10/07/2024 10:34 AM Status: COMPLETED Source: [facility] baseline unclear, monitor re nal function, monitor I's and O's PROGRESS Observed: 10/07/2024 10:34 AM Status: COMPLETED Source: [facility] continue oral antihypertensi ves PROGRESS Observed: 10/07/2024 10:34 AM Status: COMPLETED Source: [facility] reports allergy/intolerance of statins Continue fenofibrate PROGRESS Observed: 10/07/2024 10:34 AM Status: COMPLETED Source: [facility] continue levothyroxine PROGRESS Observed: 10/07/2024 10:34 AM Status: COMPLETED Source: [facility] Repeat troponin Continue heparin drip Cardiology consult PROGRESS Observed: 10/07/2024 10:14 AM Status: COMPLETED Source: [facility] Hospital Medicine Daily Progress Note - 10/07/2024 10:16 AM; Room: [address] [place] [address] Admission: 10/06/2024 7:39 PM; Length of stay: 1 days THE HOSPITALIST TEAM PREFERS TO USE [employer] FOR NON-URGENT COMMUNICATION 7AM-7PM. IF I DO NOT RESPOND WITHIN 20 MINUTES OR URGENT MATTERS, PLEASE CALL THROUGH THE DETECTIVE [place]. FROM 7PM-7AM, PLEASE PAGE [phone](COVR). Code Status: Full Code Barriers to Discharge: IV heparin, insulin, ceftriaxone and doxycyline Expected Discharge Date: 10/09/2024 Discharge Destination: home Overview Patient is seen for evaluation and management of right lower lobe pneumonia, NSTEMI, type II diabetes mellitus. [facility] 54 y.[facility] female presenting with right lower lobe pneumonia. She states that she has shortness of breath and a productive cough with yellow-colored sputum. She notes that her shortness of [...] out of 10 with oxygen, with 1 being very little pain and 10 being the worst [...] this was her 9th time being diagnosed with pneumonia. She is allergic to doxycycline, and when in contact with it, she develops a rash. Physical Exam Visit Vitals BP 137/53 (BP Location: Left arm, Patient Position: Lying) Pulse 81 Temp 37 ???C (98.6 ???F) (Temporal) Resp 24 Intake/Output Summary (Last 24 hours) at 10/07/2024 1016 Last data filed at 10/07/2024 0500 Gross per 24 hour Intake 106.69 ml Output -- Net 106.69 ml Physical Exam Cardiovascular: Rate and Rhythm: Normal rate and regular rhythm. Neurological: Mental Status: She is alert. Pulmonary: Abnormal breath sounds Estimated body mass index is 48.01 kg/m??? as calculated from the following: Height as of this encounter: 1.6 m (5' 2.99 ). Weight as of this encounter: 123 kg (270 lb 15.1 oz). Assessment and Plan Assessment & Plan NSTEMI (non-ST elevated myocardial infarction) ([facility]) Repeat troponin Continue heparin drip Cardiology consult [...] fenofibrate Insulin dependent type 2 diabetes mellitus ([facility]) uncontrolled with hyperglycemia due to noncompliance of insulin Normally has an insulin pump but she left at home Will start insulin drip to evaluate insulin requirement and then transition to basal/bolus regimen check hemoglobin A1c Class 3 obesity BMI 44.12 Essential hypertension continue oral antihypertensives History of supraventricular tachycardia Chronic kidney disease (CKD), stage III (moderate) ([facility]) baseline unclear, monitor renal function, monitor I's [...] Results from last 7 days Lab Units 05/08/25 0606 10/06/24 2235 WBC AUTO 10*3/uL 9.59 [...] , FREET4 , CORTISOL , FEV1 , SWM9BTL , DLCO , RVSP , HDL , LDL No results found for: [id number] , IRON , TIBC , C3 , C4 , BRITTANY , CANCA , ASO , PSA , CEA , CA125 , CA199 , AFP , CA153 Imaging XR knee 3 views left Narrative: [facility] Department of Radiology [address] [place] [id number] Patient Name: MARY JANE SCHAEFFER : 1970 Sex: F Age: Race: White^White Pt. Location: 84 Patient Status: O Ordered Date: 11/24/2017 11:25:00 AM Completed Date: 11/24/2017 11:28 AM Requesting Provider: RODRIGO ABREU Attending Provider: RODRIGO ABREU Report Copy To: Signs & Symptoms: M25.562 Pain in left knee I10 History: [place] Comments: , Views (X-RAY, KNEE): AP, Lateral, [place] , Weight Bearing?: Y , With Magnification Marker?: N , Views (X-RAY, KNEE): AP, Lateral, [place] , Weight Bearing?: Y , With Magnification [...] System PROTOCOL: AP(PA) view was obtained. (accession [id number]), AP,Lateral and Tangential views were obtained. (accession [id number]) COMPARISON: None FINDINGS: Pelvis: Moderate bilateral hip osteoarthritis with mild peritrochanteric heterotopic ossifications. Left knee: Severe medial weightbearing osteoarthritis with joint effusion and essentially complete joint space loss. Incidental broken needle foreign body along the anterolateral soft tissues of proximal lower leg Impression: 1. Moderate bilateral hip osteoarthritis 2. Severe medial weightbearing knee arthritis Electronically signed by:Elham Bernard. Transcribed by: [email or web address], User Resident: Electronically Signed by: ELHAM BERNARD @ 11/24/2017 12:54 PM XR pelvis 1 or 2 views Narrative: [facility] Department of Radiology [address] [place] [phone] Patient Name: MARY JANE SCHAEFFER : 1970 Sex: F Age: Race: White^White Pt. Location: Patient Status: O Ordered Date: 11/24/2017 11:25:00 AM Completed Date: 11/24/2017 11:28 AM Requesting Provider: RODRIGO ABREU Attending Provider: RODRIGO ABREU Report Copy To: Signs & Symptoms: M25.562 Pain in left knee I10 History: [place] Comments: , Views (X-RAY, PELVIS): AP , [...] System PROTOCOL: AP(PA) view was obtained. (accession [id number]), AP,Lateral and Tangential views were obtained. (accession [id number]) COMPARISON: None FINDINGS: Pelvis: Moderate bilateral hip osteoarthritis with mild peritrochanteric heterotopic ossifications. Left knee: Severe medial weightbearing osteoarthritis with joint effusion and essentially complete joint space loss. Incidental broken needle foreign body along the anterolateral soft tissues of proximal lower leg Impression: 1. Moderate bilateral hip osteoarthritis 2. Severe medial weightbearing knee arthritis Electronically signed by:Elham Bernard. Transcribed by: [email or web address], User Resident: Electronically Signed by: ELHAM BERNARD @ 11/24/2017 12:54 PM Discharge Planning Expected Discharge Disposition: Home-Health Care [facility] (06) Signed Imer Sherman, 3rd year medical student [facility] Medicine 10/07/2024 10:16 AM As the teaching physician, I have personally performed or re-performed the history of present illness, physical exam and medical decision-making activities of the encounter and verified the medical student's documentation. I made pertinent changes as necessary to ensure accurate documentation. There may be additional comments below. PROGRESS Observed: 10/07/2024 9:58 AM Status: COMPLETED Source: [facility] discharge planning: to Home with [facility] resuming services PC received from Gisela at [facility]; Patient is reported to be active on their services. [facility] added to AVS and [facility]/bedside nurse notified POCT GLUCOSE METER UNSOLICIT ED RESULTS Collected: 10/07/2024 9:41 AM Status: UNK Source: [facility] Order Comment: Waived Testin g in the ED is performed under the ED CLIA certificate #[id number]. TYPE CODE TESTS RESULT OUT OF RANGE REFERENCE UNITS LAB 885 POCT GLUCOSE 470 High 70-105 mg/dL Result Comment: [email or web address] Performed By: #### [id number] #### [facility] ([facility]) [address] [place] [address] 30 Observed: 10/07/2024 9:32 AM Status: COMPLETED Source: [facility] Problem: Pain - Adult Goal: Verbalizes/displays adequate [...] and behaviors that affect risk of falls [place] fall precautions as indicated by assessment Educate [...] comorbid symptoms for stability, deterioration, or improvement Collaborate with multidisciplinary team to address [...] goals for the shift include hemodynamically stable CONSULT Observed: 10/07/2024 9:27 AM Status: COMPLETED Source: [facility] Attestation signed by Jake Buckley MD at 10/07/2024 6:54 PM By using the attestations below, the signing [...] Also she had minimal elevation of troponin consistent with type II myocardial infarction. She had mild [...] as an outpatient as it was planned. Cardiology Consult Note Reason for Consult: concern for NSTEMI HPI: Mary Jane Schaeffer is a 54 y.o. female with medical history notable for mild CAD (cath 2020), T2DM (9.7%), HTN, HLD. History obtained from patient. Mary [...] trended to 53. ECG demonstrated sinus rhythm. Cardiology was consulted for evaluation of NSTEMI concern. Active outpatient cardiac medications: Clopidogrel, evolocumab, fenofibrate, furosemide, lisinopril, metoprolol tartrate, rosuvastatin. Family history of cardiac pathology: None reported. Tobacco/alcohol/substance history: Denies. 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 Last surface echo: EF 60-65%, reduced RV systolic function. Last coronary angiography: 2020, mild CAD. ROS: Ten point review of systems negative except as noted above. Past Medical History She has a past medical history of Abnormal ECG, Asthma, Diabetes mellitus (CMS/HCC), and Hyperlipidemia. Surgical History She has a [...] mg) by mouth at bedtime. (Patient not taking: Reported on 07/07/2024) 90 tablet 3 tiotropium (Spiriva [...] mg 25 mg oral BID PRN Ravinder Chapman MD 25 mg at 10/07/24 0938 doxycycline [...] 325 mg oral Daily with breakfast Silver Cain MD furosemide (Lasix) tablet 20 mg 20 mg oral BID Silver MD Ant 20 mg at 10/07/24 1045 heparin infusion 100 units/mL in D5W 0-28 Units/kg/hr intravenous Continuous Silver Cain MD 17 mL/hr at 10/07/24 0500 15 Units/kg/hr at 10/07/24 0500 insulin regular in 0.9 % NaCl 100 unit/100 mL (1 unit/mL) solution 0-60 Units/hr intravenous Continuous Silver Cain MD 9.5 mL/hr at 10/07/24 1302 9.5 Units/hr at 10/07/24 1302 lactobacillus acidophilus 500 million cell 1 capsule 1 capsule oral Daily Silver MD Ant levothyroxine (Synthroid, Levoxyl) tablet 175 mcg 175 mcg oral Daily before breakfast Silver Cain MD 175 mcg at 10/07/24 0647 meclizine (Antivert) [...] Cain MD 10 mg at 10/07/24 0857 nitroglycerin (Nitrostat) [...] SpO2 Height Weight 10/07/24 0700 -- 37 ???C (98.6 ???F) Temporal -- -- -- -- -- 10/07/24 0447 -- -- -- -- -- -- -- 123 kg (270 lb 15.1 oz) 10/07/24 0420 137/53 36.6 ???C (97.9 ???F) Temporal 81 24 93 % -- -- 10/07/24 0000 138/51 36.6 ???C (97.9 ???F) Temporal 93 (!) 31 94 % -- -- 10/06/24 2000 136/56 36.6 ???C (97.9 ???F) Temporal 93 24 97 % 1.6 m [...] Value Ventricular Rate 78 Atrial Rate 78 SD Interval 138 QRS DURATION 88 QT Interval 398 QTC CALCULATION(BAZETT) 453 P Nu Mine 62 R-Nu Mine 83 T Wave Nu Mine 42 Impression Normal sinus rhythm Nonspecific T wave abnormality Abnormal ECG When compared with ECG of 09-NOV-2020 07:35, Nonspecific T wave abnormality now evident in Anterior leads Confirmed by Steve FABIAN, L.S. (2) on 10/07/2024 12:01:23 PM No results found for: CKTOTAL , CKMB , CKMBINDEX , TROPONINI Complete Echo (TTE) w/wo Imaging Agent, Strain, 3D, Bubble Study Result Date: 10/07/2024 1 1 [facility] Heart Station [address] [place] [address] [phone] (fax) Echocardiogram-[facility] Name: MARY JANE SCHAEFFER Study Date: 10/07/2024 02:33 PM B/P: 137 mmHg/53 mmHg HR: 77 bpm Date of : 1970 Location: [facility] Height: 63 in. Age: 54 year(s) [...] small pericardial effusion. Procedure Staff Reading Group: [facility] Referring Physician: RAVINDER CHAPMAN Equipment Analyst: ERMIAS Mckee Ordering Physician: JAKE BUCKLEY No nuclear medicine results found for the past 12 months Relevant Imaging Results Complete Echo (TTE) w/wo Imaging Agent, Strain, 3D, Bubble Study 1 1 [facility] Heart Station [address] [place] [address] [phone] (fax) Echocardiogram-[facility] Name: MARY JANE SANTOS Study Date: 10/07/2024 02:33 PM B/P: 137 mmHg/53 mmHg HR: 77 bpm Date of : 1970 Location: [facility] Height: 63 in. Age: 54 year(s) [...] small pericardial effusion. Procedure Staff Reading Group: [facility] Referring Physician: RAVINDER CHAPMAN Equipment Analyst: ERMIAS Mckee Ordering Physician: JAKE BUCKLEY 12 [...] correction with target potassium 4.0, magnesium 2.0. POCT GLUCOSE METER UNSOLICIT ED RESULTS Collected: 10/07/2024 8:47 AM Status: UNK Source: [facility] Order Comment: Waived Testin g in the ED is performed under the ED CLIA certificate #[id number]. TYPE CODE TESTS RESULT OUT OF RANGE REFERENCE UNITS LAB 885 POCT GLUCOSE 476 High 70-105 mg/dL Result Comment: [email or web address] Performed By: #### [id number] #### [facility] ([facility]) [address] [place] [address] POCT GLUCOSE METER UNSOLICIT ED RESULTS Collected: 10/07/2024 7:40 AM Status: UNK Source: [facility] Order Comment: Waived Testin g in the ED is performed under the ED CLIA certificate #[id number]. TYPE CODE TESTS RESULT OUT OF RANGE REFERENCE UNITS LAB 885 POCT GLUCOSE 511 High Alert 70-105 mg/dL Result Comment: [email or web address] Critical Value Noted Performed By: #### [id number] #### [facility] ([facility]) [address] [place] [address] POCT GLUCOSE METER UNSOLICIT ED RESULTS Collected: 10/07/2024 6:34 AM Status: UNK Source: [facility] Order Comment: Waived Testin g in the ED is performed under the ED CLIA certificate #[id number]. TYPE CODE TESTS RESULT OUT OF RANGE REFERENCE UNITS LAB 885 POCT GLUCOSE 555 High Alert 70-105 mg/dL Result Comment: [email or web address] Performed By: #### [id number] #### [facility] ([facility]) [address] [place] [address] CBC Collected: 10/07/2024 6:06 AM Status: UN K Source: [facility] TYPE CODE TESTS RESULT OUT OF RANGE REFERENCE UNITS LAB [id number] LEUKOCYTES(10*3/ U L) IN BLOOD BY AUTOMATED COUNT 9.59 4.00-10.60 10*3/uL LAB [id number] ERYTHROCYTES (10*6/UL) IN BLOOD BY AUTOMATED COUNT 2.72 Low 3.80-5.00 10*6/uL LAB [id number] HEMOGLOBIN (G/DL ) IN BLOOD 8.4 Low 12.0-15.0 g/dL LAB [id number] HEMATOCRIT (%) I N BLOOD BY AUTOMATED COUNT 27.0 Low 36.0-45.0 % LAB 5725919 ERYTHROCYTE MEAN CORPUSCULAR VOLUME (FL) BY AUTOMATED COUNT 99.3 High 82.0-98.0 fL LAB 4292463 ERYTHROCYTE MEAN CORPUSCULAR HEMOGLOBIN (PG) BY AUTOMATED COUNT 30.9 27.0-33.0 pg LAB [id number] ERYTHROCYTE MEAN CORPUSCULAR HEMOGLOBIN CONCENTRATION (G/DL) BY AUTOMATED 31.1 Low 32.0-35.0 g/dL LAB 3656589 ERYTHROCYTE DISTRIBUTION WIDTH (RATIO) BY AUTOMATED COUNT 15.0 11.5-15.0 % LAB 5174064 PLATELETS (10*3/UL) IN BLOOD AUTOMATED COUNT 178 150-400 10*3/uL LAB 2878 IMMATURE PLATELE T FRACTION % 6.6 High 0.8-6.3 % Performed By: #### [id number] ## ## [facility] ([facility]) [address] [place] [address] ANTI-XA (HEPARIN LEVEL) Collected: 10/07/2024 6:06 AM Status: UNK Source: [facility] Order Comment: Check anti-Xa level every 6 hours while on heparin infusion, or per protocol. TYPE CODE TESTS RESULT OUT OF RANGE REFERENCE UNITS LAB [id number] HEPARIN UNFRACTIONATED (U/ML) IN PPP BY CHROMOGENIC METHOD 0.40 0.3-0.7 IU/mL Result Comment: Rivaroxaban and Apixaban will interfere with the anti Xa assay used to monitor UFH and LMWH. Performed By: #### [id number] ## ## [facility] ([facility]) [address] [place] [address] HIGH SENSITIVITY TROPONIN I Collected: 10/07/2024 6:00 AM Status: UNK Source: [facility] TYPE CODE TESTS RESULT OUT OF RANGE REFERENCE UNITS LAB 3630 HS TROPONIN I (NG/L) 56 High Alert <15 ng/L Performed By: #### [id number] # ### [facility] ([facility]) [address] [place] [address] POCT GLUCOSE METER UNSOLICIT ED RESULTS Collected: 10/07/2024 5:34 AM Status: UNK Source: [facility] Order Comment: Waived Testin g in the ED is performed under the ED CLIA certificate #[id number]. TYPE CODE TESTS RESULT OUT OF RANGE REFERENCE UNITS LAB 885 POCT GLUCOSE 523 High Alert 70-105 mg/dL Result Comment: [email or web address] Performed By: #### [id number] #### [facility] ([facility] [address] [place] [address] POCT GLUCOSE METER UNSOLICIT ED RESULTS Collected: 10/07/2024 4:36 AM Status: UNK Source: [facility] Order Comment: Waived Testin g in the ED is performed under the ED CLIA certificate #[id number]. TYPE CODE TESTS RESULT OUT OF RANGE REFERENCE UNITS LAB 885 POCT GLUCOSE 589 High Alert 70-105 mg/dL Result Comment: [email or web address] Critical Value Noted Performed By: #### [id number] #### [facility] ([facility]) [address] [place] [address] POCT GLUCOSE METER UNSOLICIT ED RESULTS Collected: 10/07/2024 3:34 AM Status: UNK Source: [facility] Order Comment: Waived Testin g in the ED is performed under the ED CLIA certificate #[id number]. TYPE CODE TESTS RESULT OUT OF RANGE REFERENCE UNITS LAB 885 POCT GLUCOSE >600 High Alert 70-105 mg/dL Result Comment: [email or web address] Critical Value Noted Performed By: #### [id number] #### [facility] ([facility] [address] [place] [address] PROGRESS Observed: 10/07/2024 1:25 AM Status: COMPLETED Source: [facility] monitor on telemetry, trend cardiac enzymes Continue heparin drip Cardiology consult PROGRESS Observed: 10/07/2024 1:25 AM Status: COMPLETED Source: [facility] baseline unclear, monitor re nal function, monitor I's and O's PROGRESS Observed: 10/07/2024 1:25 AM Status: COMPLETED Source: [facility] continue oral antihypertensi ves PROGRESS Observed: 10/07/2024 1:25 AM Status: COMPLETED Source: [facility] reports allergy/intolerance of statins Continue fenofibrate PROGRESS Observed: 10/07/2024 1:25 AM Status: COMPLETED Source: [facility] continue levothyroxine PROGRESS Observed: 10/07/2024 1:25 AM Status: COMPLETED Source: [facility] continue PPI PROGRESS Observed: 10/07/2024 1:25 AM Status: COMP LETED Source: [facility] BMI 44.12 PROGRESS Observed: 10/07/2024 1:25 AM Status: COMPLETED Source: [facility] uncontrolled with hyperglyce jose luis due to noncompliance of insulin Normally has an insulin pump but she left at home Will start insulin drip to evaluate insulin requirement and then transition to basal/bolus regimen check hemoglobin A1c PROGRESS Observed: 10/07/2024 1:25 AM Status: COMPLETED Source: [facility] monitor hemoglobin, transfus e for hemoglobin less than 7 Monitor clinically for source of bleeding PROGRESS Observed: 10/07/2024 1:25 AM Status: COMPLETED Source: [facility] Will empirically treat with ceftriaxone and doxycycline, follow-up culture results BASIC METABOLIC PANEL Collected: 2024 1:01 AM Status: UNK Source: [facility] TYPE CODE TESTS RESULT OUT OF RANGE REFERENCE UNITS LAB [id number] SODIUM (MMOL/L) IN SER/PLAS 136 136-145 mmol/L LAB 1293295 POTASSIUM (MMOL/L) IN SER/PLAS 5.1 3.5-5.1 mmol/L LAB 0910454 CHLORIDE (MMOL/L) IN SER/PLAS 102 98-107 mmol/L LAB 1898645 CARBON DIOXIDE, TOTAL (MMOL/L) IN SER/PLAS 9 Unknown 21-31 mmol/L LAB 1487024 UREA NITROGEN (MG/DL) IN SER/PLAS 41 High 7-25 mg/dL LAB 8364311 CREATININE (MG/DL) IN SER/PLAS 1.70 High 0.60-1.20 mg/dL LAB 6816894 GLUCOSE (MG/DL) IN SER/PLAS 649 High Alert 70-100 mg/dL LAB 4635012 CALCIUM (MG/DL) IN SER/PLAS 8.6 8.6-10.3 mg/dL LAB 7055561 ANION GAP IN SER/PLAS 30 High 7-20 mmol/L LAB 4131973 GLOMERULAR FILTRATION RATE ML/MIN/1.73 SQ M.PREDICTED 35.0 Low >60.0 mL/min/ 1.73m*2 Result Comment: [facility]'s estimated glomerular filtration rate (eGFR) will no [...] disproportionately affect any one group of individuals. LAB 2818930 UREA NITROGEN/CREA TININE (MASS RATIO) IN SER/PLAS 24.1 NA Performed By: #### [id number] ### # [facility] ([facility]) [address] [place] [address] ANTI-XA (HEPARIN LEVEL) Collected: 10/07/2024 1:01 AM Status: UNK Source: [facility] TYPE CODE TESTS RESULT OUT OF RANGE REFERENCE UNITS LAB 1514458 HEPARIN UNFRACTIONATED (U/ML) IN PPP BY CHROMOGENIC METHOD <0.10 Unknown 0.3-0.7 IU/mL Result Comment: Rivaroxaban and Apixaban will interfere with the anti Xa assay used to monitor UFH and LMWH. Performed By: #### [id number] ## ## [facility] ([facility]) [address] [place] [address] APTT Collected: 10/07/2024 1:01 AM Status: UN K Source: [facility] TYPE CODE TESTS RESULT OUT OF RANGE REFERENCE UNITS LAB 7541998 ACTIVATED PARTIA L THROMBOPLASTIN TIME IN PPP BY COAGULATION ASSAY 46.7 High 25.0-35.0 Seconds Result Comment: Clinical sig nificance of the APTT is questionable in the presence of heparin. Performed By: #### [id number] ## ## [facility] ([facility]) [address] [place] [address] LACTIC ACID WITH 4 HOUR REFLEX Collecte d: 10/07/2024 12:54 AM Status: UNK Source: [facility] TYPE CODE TESTS RESULT OUT OF RANGE REFERENCE UNITS LAB 2059844 LACTATE (MMOL/L) IN SER/PLAS 1.1 0.5-2.2 mmol/L Performed By: #### [id number] #### [facility] ([facility]) [address] [place] [address] BLOOD CULTURE Collected: 12:54 AM Status: UNK Source: [facility] Order Comment: From a differ ent site than #1. TYPE CODE TESTS RESULT OUT OF RANGE REFERENCE UNITS LAB 0554053 BLOOD CULTURE No growth at 5 days Performed By: #### [id number] ## ## [facility] ([facility]) [address] [place] [address] BLOOD CULTURE Collected: 12:54 AM Status: UNK Source: [facility] TYPE CODE TESTS RESULT OUT OF RANGE REFERENCE UNITS LAB 7224406 BLOOD CULTURE No growth at 5 days Performed By: #### [id number] ## ## [facility] ([facility]) [address] [place] [address] POCT GLUCOSE METER UNSOLICIT ED RESULTS Collected: 10/07/2024 12:11 AM Status: UNK Source: [facility] Order Comment: Waived Testin g in the ED is performed under the ED CLIA certificate #[id number]. TYPE CODE TESTS RESULT OUT OF RANGE REFERENCE UNITS LAB 885 POCT GLUCOSE >600 High Alert 70-105 mg/dL Result Comment: [email or web address] Critical Value Noted Performed By: #### [id number] #### [facility] ([facility]) [address] [place] [address] 30 Observed: 10/06/2024 11:37 PM Status: COMPLETED Source: [facility] Problem: Pain - Adult Goal: Verbalizes/displays adequate [...] for the shift include VSS, safety O LACTIC ACID WITH 4 HOUR REFLEX Collecte d: 10/06/2024 11:29 PM Status: UNK Source: [facility] TYPE CODE TESTS RESULT OUT OF RANGE REFERENCE UNITS LAB 3095841 LACTATE (MMOL/L) IN SER/PLAS 1.2 0.5-2.2 mmol/L Performed By: #### [id number] #### [facility] ([facility]) [address] [place] [address] HEMOGLOBIN A1C Collected: 10/06/2024 10:35 PM Status : UNK Source: [facility] TYPE CODE TESTS RESULT OUT OF RANGE REFERENCE UNITS LAB 3808796 HEMOGLOBIN A1C/HEMOGLOBIN TOTAL IN BLOOD 9.0 High 4.0-6.0 % LAB 294 ESTIMATED AVERAGE GLUCOSE (MG/DL) IN BLOOD 212 mg/dL Performed By: #### [id number] ### # [facility] ([facility]) [address] [place] [address] CBC WITH AUTO DIFFERENTIAL Collected: 0 10/06/2024 10:35 PM Status: UNK Source: [facility] TYPE CODE TESTS RESULT OUT OF RANGE REFERENCE UNITS LAB 5629741 LEUKOCYTES(10*3/ UL) IN BLOOD BY AUTOMATED COUNT 5.88 4.00-10.60 10*3/uL LAB 3866995 ERYTHROCYTES (10*6/UL) IN BLOOD BY AUTOMATED COUNT 2.74 Low 3.80-5.00 10*6/uL LAB 9516627 HEMOGLOBIN (G/DL) IN BLOOD 8.5 Low 12.0-15.0 g/dL LAB 6906746 HEMATOCRIT (%) IN BLOOD BY AUTOMATED COUNT 29.0 Low 36.0-45.0 % LAB 6387896 ERYTHROCYTE MEAN CORPUSCULAR VOLUME (FL) BY AUTOMATED COUNT 105.8 High 82.0-98.0 fL LAB 3307111 ERYTHROCYTE MEAN CORPUSCULAR HEMOGLOBIN (PG) BY AUTOMATED COUNT 31.0 27.0-33.0 pg LAB 0821181 ERYTHROCYTE MEAN CORPUSCULAR HEMOGLOBIN CONCENTRATION (G/DL) BY AUTOMATED 29.3 Low 32.0-35.0 g/dL LAB 4357351 ERYTHROCYTE DISTRIBUTION WIDTH (RATIO) BY AUTOMATED COUNT 15.0 11.5-15.0 % LAB 5118310 NEUTROPHILS/100 LEUKOCYTES IN BLOOD BY AUTOMATED COUNT 86.9 High 40.0-72.0 % LAB 3536217 LYMPHOCYTES/100 LEUKOCYTES IN BLOOD BY AUTOMATED COUNT 10.5 Low 20.0-45.0 % LAB 2623443 MONOCYTES/100 LEUKOCYTES IN BLOOD BY AUTOMATED COUNT 1.4 Low 5.0-12.0 % LAB 6224476 EOSINOPHILS/100 LEUKOCYTES IN BLOOD BY AUTOMATED COUNT 0.0 0.0-6.0 % LAB 4017758 BASOPHILS/100 LEUKOCYTES IN BLOOD BY AUTOMATED COUNT 0.2 0.0-1.0 % LAB 5617522 NEUTROPHILS (10*3/UL) IN BLOOD BY AUTOMATED COUNT 5.11 1.60-7.60 10*3/uL LAB 2544761 LYMPHOCYTES (10*3/UL) IN BLOOD BY AUTOMATED COUNT 0.62 Low 1.20-4.00 10*3/uL LAB 8366426 MONOCYTES (10*3/UL) IN BLOOD BY AUTOMATED COUNT 0.08 Low 0.10-1.00 10*3/uL LAB 5252521 EOSINOPHILS (10*3/UL) IN BLOOD BY AUTOMATED COUNT 0.00 0.00-0.50 10*3/uL LAB 5855634 BASOPHILS (10*3/UL) IN BLOOD BY AUTOMATED COUNT 0.01 0.00-0.20 10*3/uL LAB 7706691 PLATELETS (10*3/UL) IN BLOOD AUTOMATED COUNT 126 Low 150-400 10*3/uL LAB 254 NRBC (PER 100 WBCS) BY AUTOMATED COUNT 0.0 0 % LAB 1767 IMMATURE GRANULOCYTES/100 LEUKOCYTES IN BLOOD BY AUTOMATED COUNT 1.0 0.0-1.0 % LAB 1768 IMMATURE GRANULOCYTES (10*3/UL) IN BLOOD BY AUTOMATED COUNT 0.06 0.00-0.20 10*3/uL Performed By: #### [id number] # ### [facility] ([facility]) [address] [place] [address] Observed: 10/06/2024 10:11 PM Status: COMPLETED Source: [facility] Hospital Medicine History and Physical 10/07/2024 1:19 AM THE HOSPITALIST TEAM PREFERS TO USE [employer] FOR NON-URGENT COMMUNICATION 7AM-7PM. IF I DO NOT RESPOND WITHIN 20 MINUTES OR URGENT MATTERS, PLEASE CALL THROUGH THE DETECTIVE [place] [facility]. FROM 7PM-7AM, PLEASE PAGE [phone](COVR). Chief Complaint cough and shortness of breath History of Present Illness Authsudheer Schaeffer is an 54 y.o. female who came from the [facility] with 3-day history of shortness of [...] We were able to start her on ceftriaxone and doxycycline after her transfer here. She was transferred here due to elevated high-sensitivity troponin of 2053.3 concerning for NSTEMI. Patient [...] after she got sick due to decreased appetite. Blood glucose levels have been high when she checks at home. Review of System and Physical Exam Temp: [36.6 ???C (97.9 ???F)] 36.6 ???C (97.9 ???F) Heart Rate: [93] 93 Resp: [24] 24 [...] & Plan NSTEMI (non-ST elevated myocardial infarction) ([facility]) monitor on telemetry, trend cardiac enzymes Continue [...] fenofibrate Insulin dependent type 2 diabetes mellitus ([facility]) uncontrolled with hyperglycemia due to noncompliance of insulin Normally has an insulin pump but she left at home Will start insulin drip to evaluate insulin requirement and then transition to basal/bolus regimen check hemoglobin A1c Class 3 obesity BMI 44.12 Essential hypertension continue oral antihypertensives History of supraventricular tachycardia Chronic kidney disease (CKD), stage III (moderate) ([facility]) baseline unclear, monitor renal function, monitor I's [...] this hospital stay by a member of [facility]. Past Medical History Past Medical History: Diagnosis Date Abnormal ECG Asthma Diabetes mellitus (CMS/HCC) Hyperlipidemia Past Surgical History Past Surgical History: [...] allergic to sulfamethoxazole-trimethoprim, atorvastatin, azithromycin, cefprozil, ciprofloxacin, keflex [cephalexin], moxifloxacin, other, penicillins, percocet [oxycodone-acetaminophen], [...] mg) by mouth at bedtime. (Patient not taking: Reported on 07/07/2024) 90 tablet 3 tiotropium (Spiriva [...] Procedure Abnormality Status --------- ------ CBC auto differential[[id number]] Abnormal Final result Please view results for these tests on the individual orders. BASIC METABOLIC PANEL HIGH SENSITIVITY TROPONIN I LACTIC ACID WITH 4 HOUR REFLEX BASIC METABOLIC PANEL APTT ANTI-XA (HEPARIN LEVEL) POCT GLUCOSE METER POCT GLUCOSE METER POCT GLUCOSE METER Imaging XR knee 3 views left Narrative: [facility] Department of Radiology [address] [place] [address] Patient Name: MARY JANE SCHAEFFER : 1970 Sex: F Age: Race: White^White Pt. Location: Patient Status: O Ordered Date: 11/24/2017 11:25:00 AM Completed Date: 11/24/2017 11:28 AM Requesting Provider: RODRIGO ABREU Attending Provider: RODRIGO ABREU Report Copy To: Signs & Symptoms: M25.562 Pain in left knee I10 History: [place] Comments: , Views (X-RAY, KNEE): AP, Lateral, [place] , Weight Bearing?: Y , With Magnification Marker?: N , Views (X-RAY, KNEE): AP, Lateral, [place] , Weight Bearing?: Y , With Magnification [...] System PROTOCOL: AP(PA) view was obtained. (accession [id number]), AP,Lateral and Tangential views were obtained. (accession [id number]) COMPARISON: None FINDINGS: Pelvis: Moderate bilateral hip osteoarthritis with mild peritrochanteric heterotopic ossifications. Left knee: Severe medial weightbearing osteoarthritis with joint effusion and essentially complete joint space loss. Incidental broken needle foreign body along the anterolateral soft tissues of proximal lower leg Impression: 1. Moderate bilateral hip osteoarthritis 2. Severe medial weightbearing knee arthritis Electronically signed by:Elham Bernard. Transcribed by: [email or web address], User Resident: Electronically Signed by: ELHAM BERNARD @ 11/24/2017 12:54 PM XR pelvis 1 or 2 views Narrative: [facility] Department of Radiology [address] [place] [id number] Patient Name: MARY JANE SCHAEFFER : 1970 Sex: [...] System PROTOCOL: AP(PA) view was obtained. (accession [id number]), AP,Lateral and Tangential views were obtained. (accession [id number]) COMPARISON: None FINDINGS: Pelvis: Moderate bilateral hip osteoarthritis with mild peritrochanteric heterotopic ossifications. Left knee: Severe medial weightbearing osteoarthritis with joint effusion and essentially complete joint space loss. Incidental broken needle foreign body along the anterolateral soft tissues of proximal lower leg Impression: 1. Moderate bilateral hip osteoarthritis 2. Severe medial weightbearing knee arthritis Electronically signed by:Elham Bernard. Transcribed by: [email or web address], User Resident: Electronically Signed by: ELHAM BERNARD @ 11/24/2017 12:54 PM Signed Silver Cain MD [facility] 10/07/2024 1:19 AM COMPLETE BLOOD COUNT AUTO DIFF Collected: 08/21/2024 5:00 PM Status: F Source: [facility] TYPE CODE TESTS RESULT OUT OF RANGE REFERENCE UNITS LAB WBC White Blood Count 5.0 Normal 3.8-11.6 10*3/uL LAB UNWBC Uncorrected WBC 5.0 Normal 3.8-11.6 10*3/uL LAB RBC Red Blood Count 3.58 Low 3.60-5.00 10*6/u L LAB HGB Hemoglobin 11.1 Low 11.8-15.4 g/dL LAB HCT Hematocrit 33.0 Low 34.0-46.4 % LAB MCV Mean Corpuscular Volume 92.1 Normal 80-100 fL LAB MCH Mean Corpuscular Hemoglobin 30.9 Normal 24.7-34.3 pg LAB MCHC Mean Corpuscular HGB Conc 33.6 Normal 32.0-35.0 g/dL LAB RDW Red Cell Distribution Width 14.3 Normal 11.9-15.3 % LAB PLT Platelet Count 213 Normal 150-450 10*3/uL LAB MPV Mean Platelet Volume 10.5 Normal 6.3-10.7 fL LAB MDW Monocyte Distribution Width 21.75 High 0.00-20.00 % Result Comment: For adults i n ED, MDW > 20.0 may be associated with a higher risk of sepsis during the first 12 hrs of hospital admission LAB NE% Neutrophils % (Auto) 55.1 . % LAB LY% Lymphocytes % (Auto) 27.9 . % LAB MO% Monocytes % (Auto) 8.8 . % LAB EO% Eosinophils % (Auto) 7.5 . % LAB BA% Basophils % (Auto) 0.7 . % LAB NRBC% NRBC% 0.1 Normal 0-0.5 /100{WBC } LAB NE# Neutrophils # (Auto) 2.8 Normal 1.8-7.7 10*3/uL LAB LY# Lymphocytes # (Auto) 1.4 Normal 1.00-4.8 10*3/uL LAB MO# Monocytes # (Auto) 0.4 Normal 0.0-0.8 10*3/uL LAB EO# Eosinophils # (Auto) 0.4 Normal 0.0-0.45 10*3/uL LAB BA# Basophils # (Auto) 0.0 Normal 0.0-0.2 10*3/uL Performed By: #### CRP, CBC, CMP, ESR #### [facility] [address] [place] [address] [facility] ERYTHROCYTE SEDIMENTATION RATE Collected: 08/21/2024 5:00 PM Status: F Source: [facility] TYPE CODE TESTS RESULT OUT OF RANGE REFERENCE UNITS LAB ESR Erythrocyte Sedimentation Rate 57 High 0-29 Result Comment: PERFORMED BY : [place] [address] PATHOLOGIST DRIVER HELPER NATHANIEL DRAPER M.D. Performed By: #### CRP, CBC, CMP, ESR #### [place] [id number] [facility] COMPREHENSIVE METABOLIC PANEL Collected: 08/21/2024 5 :00 PM Status: F Source: [facility] TYPE CODE TESTS RESULT OUT OF RANGE REFERENCE UNITS LAB GLU Glucose 78 Normal 70-100 mg/dL Result Comment: Random Gluco se Reference Range is dependent on time and content of last meal. Glucose of more than 200 mg/dL in a nonstressed, ambulatory subject supports the diagnosis of Diabetes Mellitus. ADA recommended reference range LAB BUN Blood Urea Nitrogen 31 High 7-25 mg/d L LAB CREATT Creatinine 1.77 High 0.60-1.20 mg/dL LAB GFReNR Estimated GFR 33.324 mL/Min LAB NA Sodium 140 Normal 136-145 mmol/L LAB K Potassium 3.9 Normal 3.5-5.1 mmol/L LAB CL Chloride 109 High 98-107 mmol/L LAB CO2 Carbon Dioxide 22.2 Normal 21.0-31.0 mmol/L LAB GAP Anion Gap 12.7 Normal 6.0-15.0 meq/L LAB CA Calcium 8.9 Normal 8.6-10.3 mg/dL LAB TP Total Protein 6.8 Normal 6.4-8.9 g/dL LAB ALB Albumin Level 3.9 Normal 3.5-5.7 g/dL LAB GLOB Globulin 2.9 g/dL LAB AGRATIO Albumin/Globulin Ratio 1.3 LAB BILIT Bilirubin,Total 0.3 Normal 0.3-1.0 mg/dL LAB AST Aspartate Amino Transferase 21 Normal 13-39 U/L LAB ALT Alanine Aminotransferase 13 Normal 7-52 U/L LAB ALP Alkaline Phosphatase 55 Normal 34-104 U/L LAB CRCLPHA Creatinine Clr C alc Pharmacy 43.25 Performed By: #### CRP, CBC, CMP, ESR #### [place] [id number] [place] C-REACTIVE PROTEIN Collected: 5:00 PM Status: F Source: [facility] TYPE CODE TESTS RESULT OUT OF RANGE REFERENCE UNITS LAB CRP C-Reactive Protein <0.5 Normal 0.0-0.5 mg/dL Result Comment: PERFORMED BY : [place] [address] PATHOLOGIST DRIVER HELPER NATHANIEL DRAPER M.D. Performed By: #### CRP, CBC, CMP, ESR #### [facility] [address] [place] [address] CT ABDOMEN PELVIS W CON Observed: 2024 8:52 PM Status: COMPLETED Source: [facility] Main [place] [address] [place] [address] CT Scan Report Signed Patient: Mary Jane Schaeffer MR#: [id number] : 1970 Acct:[id number] Age/Sex: 54 / F ADM Date: 08/11/24 Loc: ER Room: Type: [facility] ER Attending Dr: Copies to: Jorge Early PA-C Ordering Provider: Jorge Early PA-C Date of Service: 08/11/24 CT/CT abdomen pelvis w con: Right side abdominal wound, rule out abscess CT Abdomen and Pelvis withcontrast TECHNIQUE: Axial imaging with 2-D reconstruction.90 cc of Isovue-300. The CT exam was performed using one or more the following dose reduction techniques: Automated exposure control, adjustment of the MA and/or Kv according to patient size, or use of the iterative reconstruction technique. COMPARISON: 04/05/2024 History: Right-sided abdominal wound. Continued drain. Assessment for abscess. LIMITATIONS: None LOWER THORAX Unremarkable LIVER: Hepatic steatosis hepatomegaly GALLBLADDER: Cholecystectomy clips identified. BILE DUCTS: No dilatation SPLEEN: Similar splenomegaly PANCREAS: Unremarkable ADRENAL GLANDS: Unremarkable KIDNEYS:Unremarkable AORTA: No abdominal aortic aneurysm identified. Atherosclerosis RETROPERITONEUM: No significant retroperitoneal abnormalities identified. MESENTERY:Unremarkable SMALL BOWEL: The small bowel loops are nondistended. APPENDIX: Appendectomy changes identified. COLON: Colonic diverticulosis. URINARY BLADDER: Urinary bladder is unremarkable. REPRODUCTIVE SYSTEM: The uterus is absent. PNEUMOPERITONEUM: None PERITONEAL FLUID:None BONY STRUCTURES: Degenerative change ABDOMINAL WALL: In the right side of the pannus there is residual soft tissue identified. This is decreased from prior examination. There is no developing abscess. There is no subcutaneous air. CT/CT abdomen pelvis w con IMPRESSION: Smaller wound defect of the right portion of the pannus. No developing abscess. Fatty hepatomegaly. Splenomegaly. Colonic diverticulosis. Impression dictated by: Mihai Jackson M.D.08/11/2024 9:01 PM Dictation Location: [place] [address] Transcribed By: [facility] 08/11/242100 Dictated By: Mihai Jackson DO 08/11/242051 Signed By: <Electronically signed by Mihai Jackson DO in OV> 08/11/242100 GLUCOSE POCT GLUCOMETERS Collected: 08/11/2024 8:21 P M Status: F Source: [facility] TYPE CODE TESTS RESULT OUT OF RANGE REFERENCE UNITS LAB GLUPOC Glucose Poc Glucometers 99 mg/dL Result Comment: Random Gluco se Reference Range is dependent on time and content of last meal. Glucose of more than 200 mg/dL in a nonstressed, ambulatory subject supports the diagnosis of Diabetes Mellitus. PERFORMED BY: [facility] [address] [place] [address] PATHOLOGIST DRIVER HELPER NATHANIEL DRAPER M.D. Performed By: #### GLULS ### # Point of Care testing , HEPATIC PANEL Collected: 08/11/2024 7:20 PM Status: F Source: [facility] TYPE CODE TESTS RESULT OUT OF RANGE REFERENCE UNITS LAB TP Total Protein 7.5 Normal 6.4-8.9 g/dL LAB ALB Albumin Level 4.1 Normal 3.5-5.7 g/dL LAB GLOB Globulin 3.4 g/dL LAB AGRATIO Albumin/Globulin Ratio 1.2 LAB BILIT Bilirubin,Total 0.4 Normal 0.3-1.0 mg/dL LAB BILID Bilirubin,Direct 0.00 Low 0.03-0.18 mg/dL Result Comment: If the DBIL is less than 0.1, IBIL is not able to be calculated. LAB BILII Bilirubin,Indirect 0.4 mg/dL LAB AST Aspartate Amino Transferase 19 Normal 13-39 U/L LAB ALT Alanine Aminotransferase 11 Normal 7-52 U/L LAB ALP Alkaline Phosphatase 50 Normal 34-104 U/L Performed By: #### ESR, CRP, BMP, CBC, HEPATIC #### [facility] [address] [place] [id number] [facility] BASIC METABOLIC PANEL Collected: 08/11/2024 7:20 PM Status: F Source: [facility] TYPE CODE TESTS RESULT OUT OF RANGE REFERENCE UNITS LAB GLU Glucose 137 High 70-100 mg/dL Result Comment: Random Gluco se Reference Range is dependent on time and content of last meal. Glucose of more than 200 mg/dL in a nonstressed, ambulatory subject supports the diagnosis of Diabetes Mellitus. ADA recommended reference range LAB BUN Blood Urea Nitrogen 68 High 7-25 mg/dL LAB CREATT Creatinine 1.81 High 0.60-1.20 mg/dL LAB GFReNR Estimated GFR 32.443 mL/Min LAB NA Sodium 139 Normal 136-145 mmol/L LAB K Potassium 4.3 Normal 3.5-5.1 mmol/L LAB CL Chloride 107 Normal 98-107 mmol/L LAB CO2 Carbon Dioxide 24.7 Normal 21.0-31.0 mmol/L LAB GAP Anion Gap 11.6 Normal 6.0-15.0 meq/L LAB CA Calcium 10.2 Normal 8.6-10.3 mg/dL LAB CRCLPHA Creatinine Clr Calc Pharmacy 41.52 Performed By: #### ESR, CRP, BMP, CBC, HEPATIC #### [facility] [address] [place] [id number] [facility] C-REACTIVE PROTEIN Collected: 08/11/2024 7:20 PM Sta tus: F Source: [facility] TYPE CODE TESTS RESULT OUT OF RANGE REFERENCE UNITS LAB CRP C-Reactive Protein 3.5 High 0.0-0.5 mg/dL Result Comment: PERFORMED BY : [place] [address] PATHOLOGIST DRIVER HELPER NATHANIEL DRAPER M.D. Performed By: #### ESR, CRP, BMP, CBC, HEPATIC #### [place] [id number] [facility] COMPLETE BLOOD COUNT AUTO DIFF Collected: 08/11/2024 7:20 PM Status: F Source: F [facility] TYPE CODE TESTS RESULT OUT OF RANGE REFERENCE UNITS LAB WBC White Blood Count 4.3 Normal 3.8-11.6 10*3/uL LAB UNWBC Uncorrected WBC 4.3 Normal 3.8-11.6 10*3/uL LAB RBC Red Blood Count 3.69 Normal 3.60-5.00 10*6/u L LAB HGB Hemoglobin 11.3 Low 11.8-15.4 g/dL LAB HCT Hematocrit 33.9 Low 34.0-46.4 % LAB MCV Mean Corpuscular Volume 91.9 Normal 80-100 fL LAB MCH Mean Corpuscular Hemoglobin 30.5 Normal 24.7-34.3 pg LAB MCHC Mean Corpuscular HGB Conc 33.2 Normal 32.0-35.0 g/dL LAB RDW Red Cell Distribution Width 14.5 Normal 11.9-15.3 % LAB PLT Platelet Count 182 Normal 150-450 10*3/uL LAB MPV Mean Platelet Volume 10.1 Normal 6.3-10.7 fL LAB MDW Monocyte Distribution Width 19.33 Normal 0.00-20.00 % LAB NE% Neutrophils % (Auto) 61.1 . % LAB LY% Lymphocytes % (Auto) 25.4 . % LAB MO% Monocytes % (Auto) 6.2 . % LAB EO% Eosinophils % (Auto) 6.9 . % LAB BA% Basophils % (Auto) 0.4 . % LAB NRBC% NRBC% 0.1 Normal 0-0.5 /100{WBC } LAB NE# Neutrophils # (Auto) 2.6 Normal 1.8-7.7 10*3/uL LAB LY# Lymphocytes # (Auto) 1.1 Normal 1.00-4.8 10*3/uL LAB MO# Monocytes # (Auto) 0.3 Normal 0.0-0.8 10*3/uL LAB EO# Eosinophils # (Auto) 0.3 Normal 0.0-0.45 10*3/uL LAB BA# Basophils # (Auto) 0.0 Normal 0.0-0.2 10*3/uL Performed By: #### ESR, CRP, BMP, CBC, HEPATIC #### [facility] [address] [place] [id number] [facility] ERYTHROCYTE SEDIMENTATION RATE Collected: 08/11/2024 7:20 PM Status: F Source: [facility] TYPE CODE TESTS RESULT OUT OF RANGE REFERENCE UNITS LAB ESR Erythrocyte Sedimentation Rate 82 High 0-29 Result Comment: PERFORMED BY : [place] [id number] PATHOLOGIST DRIVER HELPER NATHANIEL DRAPER M.D. Performed By: #### ESR, CRP, BMP, CBC, HEPATIC #### [place] [id number] [facility] PROGRESS Observed: 07/07/2024 2:00 PM Status: COMPLETED Source: [facility] Cardiology Clinic Note Chief Complaint: Patient here for 6 mo follow up mild CAD, atypical chest pain, and hypertension. She was started on rosuvastatin at last visit in December 2023 but she was unable to tolerate it due to myalgias. Repatha was then sent into her pharmacy but she said they wouldn't give it to her. No lipid panel has been drawn since then. Metoprolol was increased to 75mg bid to help with palpitations. She said this has helped to lessen them. Patient was bit by a dumont spider in Dec and is still seeing wound care for the bite. HPI: Mary Jane Schaeffer is a 54 y.o. female woman with morbid obesity and [...] not want to proceed at that time. UPDATE 07/07/2024 She has been doing relatively okay from a cardiac standpoint; palpitations have improved with increase Lopressor She is currently fighting a sinus infection and is on antibiotics She could not tolerate Crestor and apparently her insurance or the pharmacy did not prescribe the PCSK9 inhibitor Cardiology ROS: Review of Systems Constitutional: Positive for weight loss (32# since December 2023). Cardiovascular: Positive for dyspnea on exertion, leg swelling (minimal) and palpitations (must less frequent). Musculoskeletal: Positive for arthritis, back pain, joint pain, muscle weakness and myalgias. Neurological: Positive for headaches, loss of balance, vertigo and weakness. All other systems reviewed and are negative. Past Medical History She has a past medical history of Abnormal ECG, Asthma, Diabetes mellitus ([facility]/HCC), and Hyperlipidemia. Surgical History She has a [...] mL pen injector, , Disp: , Rfl: evolocumab (Repatha SureClick) 140 mg/mL pen injector, Inject 140 mg under the skin every 14 (fourteen) days., Disp: 6 mL, Rfl: 3 fenofibrate (Lofibra) 160 mg tablet, Take 1 [...] morning and at bedtime., Disp: , Rfl: metoprolol tartrate 75 mg tablet, Take 1 tablet (75 mg) by mouth in the morning and at bedtime., Disp: 180 tablet, Rfl: 3 montelukast (Singulair) 10 mg tablet, Take 10 mg by mouth in the morning., Disp: , Rfl: pantoprazole (ProtoNix) 40 mg EC tablet, Take 1 tablet by mouth in the morning and at bedtime., Disp: , Rfl: rosuvastatin (Crestor) 20 mg tablet, Take 1 tablet (20 mg) by mouth at bedtime., Disp: 90 tablet, Rfl: 3 tiotropium (Spiriva Respimat) 1.25 mcg/actuation inhaler, INHALE 2 PUFFS DAILY, Disp: , Rfl: Trulicity 4.5 mg/0.5 mL pen injector, Inject 4.5 mg under the skin every 7 (seven) days., Disp: , Rfl: Last Recorded Vitals BP 156/72 (BP Location: Right arm, Patient Position: Sitting) Pulse 70 Ht 1.6 m (5' 3 ) Wt 112 kg (246 lb) SpO2 99% BMI 43.58 kg/m??? Physical Examination: GENERAL: alert and oriented [...] Dr. Andrew already scheduled 5. Follow-up with [facility] cardiology on an as-needed basis DANIELLE,AUTHUMN D Age/Sex/Date of : 53, F - 1970 Created on: 10/31/2023 16:24 EDT TSH Collected Result Units Reference 06/17/23 15:06 3.330 uIU/mL 0.358-3.740 Thyroxine (T4) Collected Result Units Reference 06/17/23 15:06 11.20 ug/dL 4.80-13.90 Free T3 Collected Result Units Reference 06/17/23 15:06 2.05 L pg/mL 2.18-3.98 Echocardiogram 12/08/2023: Global left ventricular systolic function is difficult to assess but appears preserved; visually estimated ejection fraction is 55 to 60% Normal right ventricular size and systolic function Diastolic function is indeterminate No significant valvular abnormalities Anterior free space; trivial effusion versus fat pad Lexiscan stress test 11/20/2023: No ischemic EKG changes No reversible ischemia on nuclear images Event monitor; sinus rhythm, heart rate between 59 to 127 bpm. Infrequent SVT. During patient reported symptoms strip showed sinus rhythm and short runs of PSVT. Labs 11/24/2023: Serum creatinine is elevated at 1.24 AST is minimally elevated at 38 Triglycerides 229, cholesterol 192, HDL 37, LDL 110 Assessment: Mild CAD (Cath 2020) Syncope - Chest pain - atypical Paroxysmal supraventricular tachycardia Morbid obesity Essential hypertension - Uncontrolled Obstructive sleep apnea syndrome Diabetes mellitus Type 2 Dyspnea on exertion Low free T3 Elevated s.cr 1.25; repeat 1.24 on PAULETTE-I Plan: Continue optimal medical therapy for coronary artery disease including Plavix (she cannot tolerate aspirin- it causes emesis), high intensity statin therapy or a PCSK9 inhibitor, a beta-aayla and a RAAS inhibitor given her diabetes mellitus. Given diabetes and coronary disease, she is appropriately on a GLP-1 receptor agonistIn the form of Trulicity. She could not tolerate an SGLT2 inhibitor - Farxiga led to REBEL She could not tolerate Lipitor or Crestor: she needs a PCSK9 inhibitor in the form of Repatha or Praluent, or Leqvio given her CAD, statin intolerance (both Lipitor and Crestor) and elevated LDL Will check a fasting lipid profile and liver function test in 2 months We will increase her metoprolol to tartrate to 100 mg p.o. twice daily in an attempt to improve her symptoms of palpitations and her elevated BP Will consider referral to EP for possible EP study plus or minus ablation should her symptoms persist or worsen Treat noncardiac comorbidities as clinically appropriate RTC in 6 months or sooner should problems arise Rebeca Valadez MD, MPH, FACC, [facility] [place], [facility] Interventional Cardiology Pager Email: [email or web address] OFFICE VISIT Observed: 07/07/2024 2:00 PM Status: COMPLETED Source: [facility] [id number] [facility] 1970 F Date Provider Department Center 07/07/2024 Leyda-REBECA VALADEZ CARD [facility] Family History Problem Relation Age of Onset Angina Mother Heart attack Mother Heart attack Maternal Grandfather Family Status - Relation Status Age at Mother Maternal Grandfather Level of Service:63392 SD OFFICE/OUTPATIENT ESTABLISHED MOD MDM 30 MIN GLUCOSE POCT GLUCOMETERS Collected: 05/04/2024 6:58 A M Status: F Source: [facility] TYPE CODE TESTS RESULT OUT OF RANGE REFERENCE UNITS LAB GLUPOC Glucose Poc Glucometers 73 mg/dL Result Comment: Random Gluco se Reference Range is dependent on time and content of last meal. Glucose of more than 200 mg/dL in a nonstressed, ambulatory subject supports the diagnosis of Diabetes Mellitus. PERFORMED BY: [facility] [address] [place] [address] PATHOLOGIST DRIVER HELPER NATHANIEL DRAPER M.D. Performed By: #### GLULS ### # Point of Care testing , GLUCOSE POCT GLUCOMETERS Collected: 05/04/2024 4:18 A M Status: F Source: [facility] TYPE CODE TESTS RESULT OUT OF RANGE REFERENCE UNITS LAB GLUPOC Glucose Poc Glucometers 93 mg/dL Result Comment: Random Gluco se Reference Range is dependent on time and content of last meal. Glucose of more than 200 mg/dL in a nonstressed, ambulatory subject supports the diagnosis of Diabetes Mellitus. PERFORMED BY: [facility] [address] [place] [address] PATHOLOGIST DRIVER HELPER NATHANIEL DRAPER M.D. Performed By: #### GLULS ### # Point of Care testing , GLUCOSE POCT GLUCOMETERS Collected: 05/04/2024 2:01 A M Status: F Source: [facility] TYPE CODE TESTS RESULT OUT OF RANGE REFERENCE UNITS LAB GLUPOC Glucose Poc Glucometers 79 mg/dL Result Comment: Random Gluco se Reference Range is dependent on time and content of last meal. Glucose of more than 200 mg/dL in a nonstressed, ambulatory subject supports the diagnosis of Diabetes Mellitus. PERFORMED BY: [address] [place] [address] PATHOLOGIST DRIVER HELPER NATHANIEL DRAPER M.D. Performed By: #### GLULS ### # Point of Care testing , GLUCOSE POCT GLUCOMETERS Collected: 05/03/2024 10:49 PM Status: F Source: [facility] TYPE CODE TESTS RESULT OUT OF RANGE REFERENCE UNITS LAB GLUPOC Glucose Poc Glucometers 133 mg/dL Result Comment: Random Gluco se Reference Range is dependent on time and content of last meal. Glucose of more than 200 mg/dL in a nonstressed, ambulatory subject supports the diagnosis of Diabetes Mellitus. PERFORMED BY: [address] [place] [address] PATHOLOGIST DRIVER HELPER NATHANIEL DRAPER M.D. Performed By: #### GLULS ### # Point of Care testing , GLUCOSE POCT GLUCOMETERS Collected: 05/03/2024 9:40 P M Status: F Source: [facility] TYPE CODE TESTS RESULT OUT OF RANGE REFERENCE UNITS LAB GLUPOC Glucose Poc Glucometers 58 Low Off Scale mg/dL Result Comment: Random Gluco se Reference Range is dependent on time and content of last meal. Glucose of more than 200 mg/dL in a nonstressed, ambulatory subject supports the diagnosis of Diabetes Mellitus. LAB COMM1 Commemt1 Result Comment: Glu2: WILL N OTIFY DR/RN PERFORMED BY: [address] [place] [address] PATHOLOGIST DRIVER HELPER NATHANIEL DRAPER M.D. Performed By: #### GLULS ### # Point of Care testing , GLUCOSE POCT GLUCOMETERS Collected: 05/03/2024 6:30 P M Status: F Source: [facility] TYPE CODE TESTS RESULT OUT OF RANGE REFERENCE UNITS LAB GLUPOC Glucose Poc Glucometers 125 mg/dL Result Comment: Random Gluco se Reference Range is dependent on time and content of last meal. Glucose of more than 200 mg/dL in a nonstressed, ambulatory subject supports the diagnosis of Diabetes Mellitus. PERFORMED BY: [address] [place] [address] PATHOLOGIST DRIVER HELPER NATHANIEL DRAPER M.D. Performed By: #### GLULS ### # Point of Care testing , GLUCOSE POCT GLUCOMETERS Collected: 05/03/2024 5:54 P M Status: F Source: [facility] TYPE CODE TESTS RESULT OUT OF RANGE REFERENCE UNITS LAB GLUPOC Glucose Poc Glucometers 63 mg/dL Result Comment: Random Gluco se Reference Range is dependent on time and content of last meal. Glucose of more than 200 mg/dL in a nonstressed, ambulatory subject supports the diagnosis of Diabetes Mellitus. LAB COMM1 Commemt1 Result Comment: Glu2: Will R epeat Test PERFORMED BY: [address] [address] PATHOLOGIST DRIVER HELPER NATHANIEL DRAPER M.D. Performed By: #### GLULS ### # Point of Care testing , GLUCOSE POCT GLUCOMETERS Collected: 05/03/2024 3:51 P M Status: F Source: [facility] TYPE CODE TESTS RESULT OUT OF RANGE REFERENCE UNITS LAB GLUPOC Glucose Poc Glucometers 134 mg/dL Result Comment: Random Gluco se Reference Range is dependent on time and content of last meal. Glucose of more than 200 mg/dL in a nonstressed, ambulatory subject supports the diagnosis of Diabetes Mellitus. PERFORMED BY: [address] [address] PATHOLOGIST DRIVER HELPER NATHANIEL DRAPER M.D. Performed By: #### GLULS ### # Point of Care testing , GLUCOSE POCT GLUCOMETERS Collected: 05/03/2024 2:28 P M Status: F Source: [facility] TYPE CODE TESTS RESULT OUT OF RANGE REFERENCE UNITS LAB GLUPOC Glucose Poc Glucometers 155 mg/dL Result Comment: Random Gluco se Reference Range is dependent on time and content of last meal. Glucose of more than 200 mg/dL in a nonstressed, ambulatory subject supports the diagnosis of Diabetes Mellitus. PERFORMED BY: [address] [address] PATHOLOGIST DRIVER HELPER NATHANIEL DRAPER M.D. Performed By: #### GLULS ### # Point of Care testing , GLUCOSE POCT GLUCOMETERS Collected: 05/03/2024 2:10 P M Status: F Source: [facility] TYPE CODE TESTS RESULT OUT OF RANGE REFERENCE UNITS LAB GLUPOC Glucose Poc Glucometers 116 mg/dL Result Comment: Random Gluco se Reference Range is dependent on time and content of last meal. Glucose of more than 200 mg/dL in a nonstressed, ambulatory subject supports the diagnosis of Diabetes Mellitus. PERFORMED BY: [address] [place] [address] PATHOLOGIST DRIVER HELPER NATHANIEL DRAPER M.D. Performed By: #### GLULS ### # Point of Care testing , GLUCOSE POCT GLUCOMETERS Collected: 05/03/2024 2:00 P M Status: F Source: [facility] TYPE CODE TESTS RESULT OUT OF RANGE REFERENCE UNITS LAB GLUPOC Glucose Poc Glucometers 43 Low Off Scale mg/dL Result Comment: Random Gluco se Reference Range is dependent on time and content of last meal. Glucose of more than 200 mg/dL in a nonstressed, ambulatory subject supports the diagnosis of Diabetes Mellitus. LAB COMM1 Commemt1 Result Comment: Glu2: Result Not Confirmed PERFORMED BY: [address] [place] [address] PATHOLOGIST DRIVER HELPER NATHANIEL DRAPER M.D. Performed By: #### GLULS ### # Point of Care testing , GLUCOSE POCT GLUCOMETERS Collected: 05/03/2024 1:55 P M Status: F Source: [facility] TYPE CODE TESTS RESULT OUT OF RANGE REFERENCE UNITS LAB GLUPOC Glucose Poc Glucometers 45 Low Off Scale mg/dL Result Comment: Random Gluco se Reference Range is dependent on time and content of last meal. Glucose of more than 200 mg/dL in a nonstressed, ambulatory subject supports the diagnosis of Diabetes Mellitus. LAB COMM1 Commemt1 Result Comment: Glu2: FOLLOW HYPOGLYCEMIC PERFORMED BY: [address] [place] [address] PATHOLOGIST DRIVER HELPER NATHANIEL DRAPER M.D. Performed By: #### GLULS ### # Point of Care testing , GLUCOSE POCT GLUCOMETERS Collected: 05/03/2024 10:26 AM Status: F Source: [facility] TYPE CODE TESTS RESULT OUT OF RANGE REFERENCE UNITS LAB GLUPOC Glucose Poc Glucometers 216 mg/dL Result Comment: Random Gluco se Reference Range is dependent on time and content of last meal. Glucose of more than 200 mg/dL in a nonstressed, ambulatory subject supports the diagnosis of Diabetes Mellitus. PERFORMED BY: [facility] [address] [place] [address] PATHOLOGIST DRIVER HELPER NATHANIEL DRAPER M.D. Performed By: #### GLULS ### # Point of Care testing , COMPLETE BLOOD COUNT AUTO DIFF Collected: 05/03/2024 10:25 AM Status: F Source: [facility] TYPE CODE TESTS RESULT OUT OF RANGE REFERENCE UNITS LAB WBC White Blood Count 6.3 Normal 3.8-11.6 10*3/uL LAB UNWBC Uncorrected WBC 6.3 Normal 3.8-11.6 10*3/uL LAB RBC Red Blood Count 3.89 Normal 3.60-5.00 10*6/u L LAB HGB Hemoglobin 11.2 Low 11.8-15.4 g/dL LAB HCT Hematocrit 33.9 Low 34.0-46.4 % LAB MCV Mean Corpuscular Volume 87.0 Normal 80-100 fL LAB MCH Mean Corpuscular Hemoglobin 28.8 Normal 24.7-34.3 pg LAB MCHC Mean Corpuscular HGB Conc 33.1 Normal 32.0-35.0 g/dL LAB RDW Red Cell Distribution Width 15.0 Normal 11.9-15.3 % LAB PLT Platelet Count 192 Normal 150-450 10*3/uL LAB MPV Mean Platelet Volume 9.9 Normal 6.3-10.7 fL LAB NE% Neutrophils % (Auto) 60.9 . % LAB LY% Lymphocytes % (Auto) 25.4 . % LAB MO% Monocytes % (Auto) 4.8 . % LAB EO% Eosinophils % (Auto) 8.0 . % LAB BA% Basophils % (Auto) 0.9 . % LAB NRBC% NRBC% 0.1 Normal 0-0.5 /100{WBC} LAB NE# Neutrophils # (Auto) 3.9 Normal 1.8-7.7 10*3/uL LAB LY# Lymphocytes # (Auto) 1.6 Normal 1.00-4.8 10*3/uL LAB MO# Monocytes # (Auto) 0.3 Normal 0.0-0.8 10*3/uL LAB EO# Eosinophils # (Auto) 0.5 High 0.0-0.45 10*3/uL LAB BA# Basophils # (Auto) 0.1 Normal 0.0-0.2 10*3/uL Result Comment: PERFORMED BY : [place] [address] PATHOLOGIST DRIVER HELPER NATHANIEL DRAPER M.D. Performed By: #### BMP, CBC #### [address] BASIC METABOLIC PANEL Collected: 2023 10:25 AM Status: F Source: [facility] TYPE CODE TESTS RESULT OUT OF RANGE REFERENCE UNITS LAB GLU Glucose 228 High 70-100 mg/dL Result Comment: Random Gluco se Reference Range is dependent on time and content of last meal. Glucose of more than 200 mg/dL in a nonstressed, ambulatory subject supports the diagnosis of Diabetes Mellitus. ADA recommended reference range LAB BUN Blood Urea Nitrogen 17 Normal 7-25 mg/dL LAB CREATT Creatinine 1.09 Normal 0.60-1.20 mg/dL LAB GFReNR Estimated GFR 59.995 mL/Min LAB NA Sodium 141 Normal 136-145 mmol/L LAB K Potassium 3.4 Low 3.5-5.1 mmol/L LAB CL Chloride 105 Normal 98-107 mmol/L LAB CO2 Carbon Dioxide 22.4 Normal 21.0-31.0 mmol/L LAB GAP Anion Gap 17.0 High 6.0-15.0 meq/L LAB CA Calcium 9.2 Normal 8.6-10.3 mg/dL Result Comment: PERFORMED BY : [place] [address] PATHOLOGIST DRIVER HELPER NATHANIEL DRAPER M.D. Performed By: #### BMP, CBC #### [facility] [address] [place] [address], [place] [address] [facility] L Observed: 04/28/2024 12:00 AM Status: [place] Source: [facility] ----- ------- Specimen: [id number] Received: 05/03/24 Status: TIEN Rose Num: [id number] Spec Type: Surgical Subm Dr: Troy Moya MD Tissues: A Skin Tag or debridement (PRODUCTS OF DEBRIDEMENT) Procedures: Malena PEREZ/Shikha L3 ----- ------- Age/ Patient Sex Location Account Attending Physician ----- ------- Mary Jane Schaeffer 53/F [place] [id number] Troy Moya MD ----- ------- SPEC NUM: [id number] RECD: 05/03/24 STATUS: TIEN ROSE NUM: [id number] KEVIN: 04/28/24- SUBM DR: Troy Moya MD ENTERED: 05/03/[address] [facility] [address]: SPEC TYPE: Surgical DEPT: S ENTERED BY: [id number] RECV BY: [id number] ORDERED: HE, Gross/Micro L3 ORDERED: HE, Gross/Micro L3 Pathological Diagnosis Abdominal wound, debridement: Skin ulceration with underlying soft tissue inflammation and necrosis, consistent with wound debridement. Clinical Information Abdominal wound Gross Description Part A is received in formalin labeled with the patients name, date of , and products of debridement are fragments of grace-pink to yellow-green subcutaneous tissue, 2.4 x 2 x 0.7 cm in aggregate. Some of the fragments are lined by a grace-green plaque-like material. Serial sections reveal yellow-grace to corbin-green, dull and uniform cut surfaces. Case Planner sections are submitted in a single cassette. (1, ss, [id number]) CPT Codes 65701 ----- ------- ----- ------- Specimen: [id number] Received: 05/03/24 Status: TIEN Rose Num: [id number] Spec Type: Surgical Subm Dr: Troy Moya MD Tissues: A Skin Tag or debridement (PRODUCTS OF DEBRIDEMENT) Procedures: HE, Gross/Micro L3 ----- ------- Patient: Mary Jane Schaeffer [id number] (Continued) ----- ------- Signed (signature on file) Nathaniel Draper MD 05/05/[address] ABDOMEN PELVIS W CON Observed: 2023 10:43 PM Status: COMPLETED Source: [place] [address] CT Scan Report Signed Patient: Mary Jane Schaeffer MR#: [id number] : 1970 Acct:[id number] Age/Sex: 53 / F ADM Date: 04/05/24 Loc: ER Room: Type: [facility] ER Attending Dr: Copies to: Mc Roque DO Ordering Provider: Mc Roque DO Date of Service: 04/05/24 CT/CT abdomen pelvis w con: eval soft tissue mass RLQ CT abdomen pelvis w con 04/05/2024 8:33 PM SIGNS AND SYMPTOMS: Spider bite with chronic wound in the right lower abdominal wall TECHNIQUE: Multidetector ct axial images of the abdomen and pelvis were obtained with IV contrast. Multiplanar reformats were performed and reviewed to further define anatomy and possible pathology. CT was performed with one or more of the following dose reduction techniques: Automated exposure control, adjustment of the mA and/or kV according to patient size, or use of iterative reconstruction technique. COMPARISON: 03/17/2024 FINDINGS: Lower Chest: There is linear scarring or atelectasis at the left lung base. ABDOMEN: Liver: The liver is hypoattenuating suggesting hepatic steatosis. Bile Ducts: Normal caliber. Gallbladder: Previously removed Pancreas: Within normal limits. Spleen: There is splenomegaly. The spleen measures 16.8 cm in craniocaudal dimension. Adrenals: Within normal limits. Kidneys: Within normal limits. Pelvis: Reproductive Organs: No pelvic masses. Ureters: Within normal limits. Bladder: Within normal limits. Bowel: Normal caliber. Uncomplicated colonic diverticula are noted. Mesenteric Lymph Nodes: No enlarged mesenteric lymph nodes. Peritoneum: No ascites or free air, no fluid collection. Vessels: Atherosclerotic changes are noted in the abdominal aorta and its branches. Retroperitoneum: Within normal limits. Abdominal Wall: There is a chronic appearing wound along the lateral aspect of the right side of the abdominal pannus without evidence of abscess formation. There is resolving subcutaneous emphysema when compared to the prior exam. The open/ulcerated area appears to be slightly larger when compared to the prior exam. Bones: Degenerative changes are noted in the thoracolumbar spine. Degenerative changes are noted in the sacroiliac joints. CT/CT abdomen pelvis w con IMPRESSION: There is a chronic appearing wound along the lateral aspect of the right side of the abdominal pannus without evidence of abscess formation. There is resolving subcutaneous emphysema when compared to the prior exam. The open/ulcerated area appears to be slightly larger when compared to the prior exam. There is redemonstration of splenomegaly with the spleen measuring 16.8 cm in craniocaudal dimension. There are uncomplicated colonic diverticula. Findings are consistent with hepatic steatosis. Additional chronic findings are noted as above. Impression dictated by: Donald De Souza M.D.04/05/2024 10:53 PM Dictation Location: [place] [address] Transcribed By: [facility] 04/05/242252 Dictated By: Donald De Souza II, MD 04/05/242242 Signed By: <Electronically signed by Donald De Souza II, MD in OV> 04/05/242252 VENOUS BLOOD GAS Collected: 04/05/2024 10:34 PM Stat us: F Source: [facility] TYPE CODE TESTS RESULT OUT OF RANGE REFERENCE UNITS LAB VBPH VBG PH Venous PH 7.39 Normal 7.32-7.43 LAB VBPCO2 VBG PCO2 35.6 Low 38.0-50.0 mm[Hg] LAB VBHCO3 VBG HCO3 21.2 Low 23.0-29.0 mmol/L LAB VBBE VBG Base Excess -3.2 Low -3.0-3.0 mmol/L LAB SCQ2RGB VBG Oxygen Saturation 85.7 High Off Scale 73.0-76.0 % LAB VBTCO2 VBG TCO2 22.3 Low 24.0-29.0 mmol/L LAB VBFIO2 VBG Frac Inspired O2 21 % LAB VBDRAW VBG Draw Site Venous LAB RESPCRIT Respiratory Critical Result Comment: Critical Cheryl ue called on: 04/05/2024 at 22:36 PERFORMED BY: [place] [address] PATHOLOGIST DRIVER HELPER MEERA GRIFFITHS M.D. Performed By: #### VBG #### Point of Care testing , BETA HYDROXYBUTERATE Collected: 04/05/2024 8:57 PM S tatus: F Source: [facility] TYPE CODE TESTS RESULT OUT OF RANGE REFERENCE UNITS LAB BHOB Beta Hydroxybuterate 1.04 High 0.02-0.27 mmol/L Result Comment: PERFORMED BY : [place] [address] PATHOLOGIST DRIVER HELPER MEERA GRIFFITHS M.D. Performed By: #### BHOB #### [address] COMPLETE BLOOD COUNT AUTO DIFF Collected: 04/05/2024 8:57 PM Status: F Source: [facility] TYPE CODE TESTS RESULT OUT OF RANGE REFERENCE UNITS LAB WBC White Blood Count 4.1 Normal 3.8-11.6 10*3/uL LAB UNWBC Uncorrected WBC 4.1 Normal 3.8-11.6 10*3/uL LAB RBC Red Blood Count 3.44 Low 3.60-5.00 LAB HGB Hemoglobin 10.3 Low 11.8-15.4 g/dL LAB HCT Hematocrit 31.1 Low 34.0-46.4 % LAB MCV Mean Corpuscular Volume 90.6 Normal 80-100 fL LAB MCH Mean Corpuscular Hemoglobin 29.8 Normal 24.7-34.3 pg LAB MCHC Mean Corpuscular HGB Conc 32.9 Normal 32.0-35.0 g/dL LAB RDW Red Cell Distribution Width 14.9 Normal 11.9-15.3 % LAB PLT Platelet Count 239 Normal 150-450 10*3/uL LAB MPV Mean Platelet Volume 9.4 Normal 6.3-10.7 fL LAB MDW Monocyte Distribution Width 19.15 Normal 0.00-20.00 % LAB NE% Neutrophils % (Auto) 61.5 . % LAB LY% Lymphocytes % (Auto) 24.4 . % LAB MO% Monocytes % (Auto) 8.4 . % LAB EO% Eosinophils % (Auto) 4.6 . % LAB BA% Basophils % (Auto) 1.1 . % LAB NRBC% NRBC% 0.1 Normal 0-0.5 /100{WBC } LAB NE# Neutrophils # (Auto) 2.5 Normal 1.8-7.7 10*3/uL LAB LY# Lymphocytes # (Auto) 1.0 Normal 1.00-4.8 10*3/uL LAB MO# Monocytes # (Auto) 0.3 Normal 0.0-0.8 10*3/uL LAB EO# Eosinophils # (Auto) 0.2 Normal 0.0-0.45 10*3/uL LAB BA# Basophils # (Auto) 0.0 Normal 0.0-0.2 10*3/uL Result Comment: PERFORMED BY : [place] [address] PATHOLOGIST DRIVER HELPER MEERA GRIFFITHS M.D. Performed By: #### CBC, BMP #### [address] BASIC METABOLIC PANEL Collected: 04/05/2024 8:57 PM Status: F Source: [facility] TYPE CODE TESTS RESULT OUT OF RANGE REFERENCE UNITS LAB GLU Glucose 694 High Off Scale 70-100 mg/dL Result Comment: Critical Res ult Called to and read back by: JESUS MORSE at: 04/05/2024 21:29:55 by:[id number] Random Glucose Reference Range is dependent on time and content of last meal. Glucose of more than 200 mg/dL in a nonstressed, ambulatory subject supports the diagnosis of Diabetes Mellitus. ADA recommended reference range LAB BUN Blood Urea Nitrogen 31 High 7-25 mg/dL LAB CREATT Creatinine 1.08 Normal 0.60-1.20 mg/dL LAB GFReNR Estimated GFR > 60.0 LAB NA Sodium 128 Low 136-145 mmol/L LAB K Potassium 5.1 Normal 3.5-5.1 mmol/L LAB CL Chloride 97 Low 98-107 mmol/L LAB CO2 Carbon Dioxide 20.4 Low 21.0-31.0 mmol/L LAB GAP Anion Gap 15.7 High 6.0-15.0 LAB CA Calcium 9.4 Normal 8.6-10.3 mg/dL LAB CRCLPHA Creatinine Clr Calc Pharmacy 70.95 Result Comment: PERFORMED BY : [place] [address] PATHOLOGIST DRIVER HELPER MEERA GRIFFITHS M.D. Performed By: #### CBC, BMP #### [address] DIPSTICK AND MICROSCOPIC Collected: 09/2023 7:35 PM Status: F Source: [facility] Order Comment: Name Collecti on Type:: Clean-Voided Midstream TYPE CODE TESTS RESULT OUT OF RANGE REFERENCE UNITS LAB UCOL Color,Urine Light-Yellow Yellow LAB UAPP Appearance,Uri ne Clear Clear LAB USG Specificy [place],Urine 1.025 Normal 1.001-1.030 LAB UPH pH,Urine 5.5 Normal 5.0-9.0 LAB ULE Leukocyte Esterase,Urine Negative Negative LAB UNIT Nitrite,Urine Negative Negative LAB UPRO Protein,Urine Trace High Negative LAB UGL Glucose,Urine (UA) >=1000 High Normal LAB UKET Ketones,Urine Trace High Negative LAB UURO Urobilinogen,U rine Normal Normal LAB UBIL Bilirubin,Urin e Negative Negative LAB UBLD Occult Blood,Urine Negative Negative Result Comment: PERFORMED BY : [place] [id number] PATHOLOGIST DRIVER HELPER MEERA GRIFFITHS M.D. LAB URBC RBC,Urine 1-2 0-4 LAB UWBC WBC,Urine 5-9 High 0-4 LAB USQEPI Squamous Epithelial Cell,Urine 1-2 0-2 LAB UBACT Bacteria,Urine None Seen None Seen Result Comment: PERFORMED BY : [place] [address] PATHOLOGIST DRIVER HELPER MEERA GRIFFITHS M.D. Performed By: #### ADDONUAPL #### [place] [id number] [facility] GLUCOSE POCT GLUCOMETERS Collected: 03/24/2024 11:28 AM Status: F Source: [facility] TYPE CODE TESTS RESULT OUT OF RANGE REFERENCE UNITS LAB GLUPOC Glucose Poc Glucometers 191 mg/dL Result Comment: Random Gluco se Reference Range is dependent on time and content of last meal. Glucose of more than 200 mg/dL in a nonstressed, ambulatory subject supports the diagnosis of Diabetes Mellitus. PERFORMED BY: [place] [address] PATHOLOGIST DRIVER HELPER MEERA GRIFFITHS M.D. Performed By: #### GLULS ### # Point of Care testing , GLUCOSE POCT GLUCOMETERS Collected: 03/24/2024 6:25 A M Status: F Source: [facility] TYPE CODE TESTS RESULT OUT OF RANGE REFERENCE UNITS LAB GLUPOC Glucose Poc Glucometers 245 mg/dL Result Comment: Random Gluco se Reference Range is dependent on time and content of last meal. Glucose of more than 200 mg/dL in a nonstressed, ambulatory subject supports the diagnosis of Diabetes Mellitus. PERFORMED BY: [place] [id number] PATHOLOGIST DRIVER HELPER MEERA GRIFFITHS M.D. Performed By: #### GLULS ### # Point of Care testing , COMPLETE BLOOD COUNT AUTO DIFF Collected: 03/24/2024 6:21 AM Status: F Source: F [facility] TYPE CODE TESTS RESULT OUT OF RANGE REFERENCE UNITS LAB WBC White Blood Count 6.7 Normal 3.8-11.6 10*3/uL LAB UNWBC Uncorrected WBC 6.7 Normal 3.8-11.6 10*3/uL LAB RBC Red Blood Count 3.49 Low 3.60-5.00 LAB HGB Hemoglobin 10.3 Low 11.8-15.4 g/dL LAB HCT Hematocrit 31.4 Low 34.0-46.4 % LAB MCV Mean Corpuscular Volume 89.9 Normal 80-100 fL LAB MCH Mean Corpuscular Hemoglobin 29.4 Normal 24.7-34.3 pg LAB MCHC Mean Corpuscular HGB Conc 32.7 Normal 32.0-35.0 g/dL LAB RDW Red Cell Distribution Width 14.9 Normal 11.9-15.3 % LAB PLT Platelet Count 283 Normal 150-450 10*3/uL LAB MPV Mean Platelet Volume 9.3 Normal 6.3-10.7 fL LAB NE% Neutrophils % (Auto) 56.7 . % LAB LY% Lymphocytes % (Auto) 28.2 . % LAB MO% Monocytes % (Auto) 7.2 . % LAB EO% Eosinophils % (Auto) 7.0 . % LAB BA% Basophils % (Auto) 0.9 . % LAB NRBC% NRBC% 0.1 Normal 0-0.5 /100{WBC} LAB NE# Neutrophils # (Auto) 3.8 Normal 1.8-7.7 10*3/uL LAB LY# Lymphocytes # (Auto) 1.9 Normal 1.00-4.8 10*3/uL LAB MO# Monocytes # (Auto) 0.5 Normal 0.0-0.8 10*3/uL LAB EO# Eosinophils # (Auto) 0.5 High 0.0-0.45 10*3/uL LAB BA# Basophils # (Auto) 0.1 Normal 0.0-0.2 10*3/uL Result Comment: PERFORMED BY : [place] [address] PATHOLOGIST DRIVER HELPER MEERA GRIFFITHS M.D. Performed By: #### CBC, BMP #### [address] BASIC METABOLIC PANEL Collected: 03/24/2024 6:21 AM Status: F Source: [facility] TYPE CODE TESTS RESULT OUT OF RANGE REFERENCE UNITS LAB GLU Glucose 228 High 70-100 mg/dL Result Comment: Random Gluco se Reference Range is dependent on time and content of last meal. Glucose of more than 200 mg/dL in a nonstressed, ambulatory subject supports the diagnosis of Diabetes Mellitus. ADA recommended reference range LAB BUN Blood Urea Nitrogen 30 High 7-25 mg/dL LAB CREATT Creatinine 1.54 High 0.60-1.20 mg/dL LAB GFReNR Estimated GFR 39.628 LAB NA Sodium 138 Normal 136-145 mmol/L LAB K Potassium 3.8 Normal 3.5-5.1 mmol/L LAB CL Chloride 99 Normal 98-107 mmol/L LAB CO2 Carbon Dioxide 29.9 Normal 21.0-31.0 mmol/L LAB GAP Anion Gap 12.9 Normal 6.0-15.0 LAB CA Calcium 8.8 Normal 8.6-10.3 mg/dL LAB CRCLPHA Creatinine Clr Calc Pharmacy 49.93 Result Comment: PERFORMED BY : [place] [address] PATHOLOGIST DRIVER HELPER MEERA GRIFFITHS M.D. Performed By: #### CBC, BMP #### [address] GLUCOSE POCT GLUCOMETERS Collected: 03/24/2024 2:03 A M Status: F Source: [facility] TYPE CODE TESTS RESULT OUT OF RANGE REFERENCE UNITS LAB GLUPOC Glucose Poc Glucometers 311 mg/dL Result Comment: Random Gluco se Reference Range is dependent on time and content of last meal. Glucose of more than 200 mg/dL in a nonstressed, ambulatory subject supports the diagnosis of Diabetes Mellitus. PERFORMED BY: [place] [address] PATHOLOGIST DRIVER HELPER MEERA GRIFFITHS M.D. Performed By: #### GLULS ### # Point of Care testing , GLUCOSE POCT GLUCOMETERS Collected: 03/23/2024 8:51 P M Status: F Source: [facility] TYPE CODE TESTS RESULT OUT OF RANGE REFERENCE UNITS LAB GLUPOC Glucose Poc Glucometers 346 mg/dL Result Comment: Random Gluco se Reference Range is dependent on time and content of last meal. Glucose of more than 200 mg/dL in a nonstressed, ambulatory subject supports the diagnosis of Diabetes Mellitus. PERFORMED BY: [address] [address] PATHOLOGIST DRIVER HELPER JIANLAN SUN M.D. Performed By: #### GLULS ### # Point of Care testing , XR CHEST 1V PORTABLE Observed: 4 4:31 PM Status: COMPLETED Source: [facility] Main [address] [address] XRay Report Signed Patient: Mary Jane Schaeffer MR#: [id number] : 1970 Acct:[id number] Age/Sex: 53 / F ADM Date: 03/17/24 Loc: Room: [address] [place] [address] Type: ADM IN Attending Dr: Billy Nickerson MD Copies to: Billy Nickerson MD Ordering Provider: Billy Nickerson MD Date of Service: 03/23/24 XR/XR chest 1V portable: PICC line placement verifications PORTABLE AP ERECT CHEST 1551 hours CLINICAL HISTORY: Right-sided PICC line placement COMPARISON: 03/27/2010 There is a right-sided PICC line which extends to the distal superior vena cava. The heart is within normal limits. There is no vascular congestion. The lungs, as visualized, are clear. There is no effusion or pneumothorax. The osseous structures are intact. End plate spurring is noted at the spine. There are anchor pins at the right humeral head. XR/XR chest 1V portable IMPRESSION: PICC LINE PLACEMENT, DESCRIBED. NO ACUTE FINDINGS Impression dictated by: Kim Coleman M.D.03/23/2024 4:33 PM Dictation Location: [place] [address] Transcribed By: [facility] 03/23/24 1633 Dictated By: Kim Coleman MD 03/23/24 1631 Signed By: <Electronically signed by MD Kim Coleman in OV> 03/23/24 1633 GLUCOSE POCT GLUCOMETERS Collected: 03/23/2024 4:03 P M Status: F Source: [facility] TYPE CODE TESTS RESULT OUT OF RANGE REFERENCE UNITS LAB GLUPOC Glucose Poc Glucometers 393 mg/dL Result Comment: Random Gluco se Reference Range is dependent on time and content of last meal. Glucose of more than 200 mg/dL in a nonstressed, ambulatory subject supports the diagnosis of Diabetes Mellitus. PERFORMED BY: [place] [address] PATHOLOGIST DRIVER HELPER MEERA GRIFFITHS M.D. Performed By: #### GLULS ### # Point of Care testing , PROTHROMBIN TIME INR Collected: 12:40 PM Status: F Source: [facility] TYPE CODE TESTS RESULT OUT OF RANGE REFERENCE UNITS LAB R PT Prothrombin Time 15.1 High 9.0-12.9 s Result Comment: A hematocrit value greater than 55% may lead to inaccurate results in coagulation testing. Patients having hematocrit values >55% require a special collection tube for coagulation studies. Please contact the laboratory at [phone] for redraw instructions. LAB INR INR 1.3 Result Comment: INR Therapeu tic Range A) Pre- and Peroperative OAT started two weeks before surgery. NOT HIP SURGERY: 1.5 - 2.5 HIP SURGERY: 2 - 3 B) Primary and secondary prevention of venous THROMBOSIS: 2 - 3 C) Active venous thrombosis, pulmonary embolism and prevention of recurrent venous thrombosis: 2 - 3 D) Prevention of arterial thromboembolism including patients with mechanical heart valves: 3 - 4.5 PERFORMED BY: [place] [address] PATHOLOGIST DRIVER HELPER MEERA GRIFFITHS M.D. Performed By: #### PT #### [address] GLUCOSE POCT GLUCOMETERS Collected: 03/23/2024 10:59 AM Status: F Source: [facility] TYPE CODE TESTS RESULT OUT OF RANGE REFERENCE UNITS LAB GLUPOC Glucose Poc Glucometers 295 mg/dL Result Comment: Random Gluco se Reference Range is dependent on time and content of last meal. Glucose of more than 200 mg/dL in a nonstressed, ambulatory subject supports the diagnosis of Diabetes Mellitus. LAB COMM1 Commemt1 Glu2: Cleaned Meter Result Comment: PERFORMED BY : [place] [address] PATHOLOGIST DRIVER HELPER MEERA GRIFFITHS M.D. Performed By: #### GLULS ### # Point of Care testing , COMPLETE BLOOD COUNT AUTO DIFF Collected: 03/23/2024 7:23 AM Status: F Source: [facility] TYPE CODE TESTS RESULT OUT OF RANGE REFERENCE UNITS LAB WBC White Blood Count 6.2 Normal 3.8-11.6 10*3/uL LAB UNWBC Uncorrected WBC 6.2 Normal 3.8-11.6 10*3/uL LAB RBC Red Blood Count 3.52 Low 3.60-5.00 LAB HGB Hemoglobin 10.3 Low 11.8-15.4 g/dL LAB HCT Hematocrit 31.6 Low 34.0-46.4 % LAB MCV Mean Corpuscular Volume 89.5 Normal 80-100 fL LAB MCH Mean Corpuscular Hemoglobin 29.2 Normal 24.7-34.3 pg LAB MCHC Mean Corpuscular HGB Conc 32.6 Normal 32.0-35.0 g/dL LAB RDW Red Cell Distribution Width 14.7 Normal 11.9-15.3 % LAB PLT Platelet Count 270 Normal 150-450 10*3/uL LAB MPV Mean Platelet Volume 9.4 Normal 6.3-10.7 fL LAB NE% Neutrophils % (Auto) 56.5 . % LAB LY% Lymphocytes % (Auto) 28.3 . % LAB MO% Monocytes % (Auto) 7.8 . % LAB EO% Eosinophils % (Auto) 6.6 . % LAB BA% Basophils % (Auto) 0.8 . % LAB NRBC% NRBC% 0.1 Normal 0-0.5 /100{WBC} LAB NE# Neutrophils # (Auto) 3.5 Normal 1.8-7.7 10*3/uL LAB LY# Lymphocytes # (Auto) 1.8 Normal 1.00-4.8 10*3/uL LAB MO# Monocytes # (Auto) 0.5 Normal 0.0-0.8 10*3/uL LAB EO# Eosinophils # (Auto) 0.4 Normal 0.0-0.45 10*3/uL LAB BA# Basophils # (Auto) 0.0 Normal 0.0-0.2 10*3/uL Result Comment: PERFORMED BY : [address] [address] PATHOLOGIST DRIVER HELPER MEERA GRIFFITHS M.D. Performed By: #### BMP, CBC #### [facility] [address] [id number] [facility] BASIC METABOLIC PANEL Collected: 03/23/2024 7:23 AM Status: F Source: [facility] TYPE CODE TESTS RESULT OUT OF RANGE REFERENCE UNITS LAB GLU Glucose 184 High 70-100 mg/dL Result Comment: Random Gluco se Reference Range is dependent on time and content of last meal. Glucose of more than 200 mg/dL in a nonstressed, ambulatory subject supports the diagnosis of Diabetes Mellitus. ADA recommended reference range LAB BUN Blood Urea Nitrogen 26 High 7-25 mg/dL LAB CREATT Creatinine 1.42 High 0.60-1.20 mg/dL LAB GFReNR Estimated GFR 43.680 LAB NA Sodium 140 Normal 136-145 mmol/L LAB K Potassium 4.5 Normal 3.5-5.1 mmol/L LAB CL Chloride 99 Normal 98-107 mmol/L LAB CO2 Carbon Dioxide 31.5 High 21.0-31.0 mmol/L LAB GAP Anion Gap 14.0 Normal 6.0-15.0 LAB CA Calcium 8.6 Normal 8.6-10.3 mg/dL LAB CRCLPHA Creatinine Clr Calc Pharmacy 54.54 Result Comment: PERFORMED BY : [place] [address] PATHOLOGIST DRIVER HELPER MEERA GRIFFITHS M.D. Performed By: #### BMP, CBC #### [address] GLUCOSE POCT GLUCOMETERS Collected: 03/23/2024 6:26 A M Status: F Source: [facility] TYPE CODE TESTS RESULT OUT OF RANGE REFERENCE UNITS LAB GLUPOC Glucose Poc Glucometers 221 mg/dL Result Comment: Random Gluco se Reference Range is dependent on time and content of last meal. Glucose of more than 200 mg/dL in a nonstressed, ambulatory subject supports the diagnosis of Diabetes Mellitus. PERFORMED BY: [place] [address] PATHOLOGIST DRIVER HELPER MEERA GRIFFITHS M.D. Performed By: #### GLULS ### # Point of Care testing , GLUCOSE POCT GLUCOMETERS Collected: 03/23/2024 1:31 A M Status: F Source: [facility] TYPE CODE TESTS RESULT OUT OF RANGE REFERENCE UNITS LAB GLUPOC Glucose Poc Glucometers 249 mg/dL Result Comment: Random Gluco se Reference Range is dependent on time and content of last meal. Glucose of more than 200 mg/dL in a nonstressed, ambulatory subject supports the diagnosis of Diabetes Mellitus. PERFORMED BY: [address] [place] [address] PATHOLOGIST DRIVER HELPER MEERA GRIFFITHS M.D. Performed By: #### GLULS ### # Point of Care testing , GLUCOSE POCT GLUCOMETERS Collected: 03/22/2024 8:19 P M Status: F Source: [facility] TYPE CODE TESTS RESULT OUT OF RANGE REFERENCE UNITS LAB GLUPOC Glucose Poc Glucometers 323 mg/dL Result Comment: Random Gluco se Reference Range is dependent on time and content of last meal. Glucose of more than 200 mg/dL in a nonstressed, ambulatory subject supports the diagnosis of Diabetes Mellitus. PERFORMED BY: [address] [address] PATHOLOGIST DRIVER HELPER MEERA GRIFFITHS M.D. Performed By: #### GLULS ### # Point of Care testing , GLUCOSE POCT GLUCOMETERS Collected: 03/22/2024 4:17 P M Status: F Source: [facility] TYPE CODE TESTS RESULT OUT OF RANGE REFERENCE UNITS LAB GLUPOC Glucose Poc Glucometers 339 mg/dL Result Comment: Random Gluco se Reference Range is dependent on time and content of last meal. Glucose of more than 200 mg/dL in a nonstressed, ambulatory subject supports the diagnosis of Diabetes Mellitus. PERFORMED BY: [address] [place] [address] PATHOLOGIST DRIVER HELPER MEERA GRIFFITHS M.D. Performed By: #### GLULS ### # Point of Care testing , GLUCOSE POCT GLUCOMETERS Collected: 03/22/2024 11:43 AM Status: F Source: [facility] TYPE CODE TESTS RESULT OUT OF RANGE REFERENCE UNITS LAB GLUPOC Glucose Poc Glucometers 252 mg/dL Result Comment: Random Gluco se Reference Range is dependent on time and content of last meal. Glucose of more than 200 mg/dL in a nonstressed, ambulatory subject supports the diagnosis of Diabetes Mellitus. PERFORMED BY: [facility] [place] [address] PATHOLOGIST DRIVER HELPER MEERA GRIFFITHS M.D. Performed By: #### GLULS ### # Point of Care testing , COMPLETE BLOOD COUNT AUTO DIFF Collected: 03/22/2024 6:32 AM Status: F Source: F [facility] TYPE CODE TESTS RESULT OUT OF RANGE REFERENCE UNITS LAB WBC White Blood Count 5.9 Normal 3.8-11.6 10*3/uL LAB UNWBC Uncorrected WBC 5.9 Normal 3.8-11.6 10*3/uL LAB RBC Red Blood Count 3.34 Low 3.60-5.00 LAB HGB Hemoglobin 10.0 Low 11.8-15.4 g/dL LAB HCT Hematocrit 30.2 Low 34.0-46.4 % LAB MCV Mean Corpuscular Volume 90.4 Normal 80-100 fL LAB MCH Mean Corpuscular Hemoglobin 29.9 Normal 24.7-34.3 pg LAB MCHC Mean Corpuscular HGB Conc 33.0 Normal 32.0-35.0 g/dL LAB RDW Red Cell Distribution Width 14.6 Normal 11.9-15.3 % LAB PLT Platelet Count 243 Normal 150-450 10*3/uL LAB MPV Mean Platelet Volume 10.0 Normal 6.3-10.7 fL LAB NE% Neutrophils % (Auto) 58.1 . % LAB LY% Lymphocytes % (Auto) 27.0 . % LAB MO% Monocytes % (Auto) 8.6 . % LAB EO% Eosinophils % (Auto) 5.8 . % LAB BA% Basophils % (Auto) 0.5 . % LAB NRBC% NRBC% 0.0 Normal 0-0.5 /100{WBC} LAB NE# Neutrophils # (Auto) 3.4 Normal 1.8-7.7 10*3/uL LAB LY# Lymphocytes # (Auto) 1.6 Normal 1.00-4.8 10*3/uL LAB MO# Monocytes # (Auto) 0.5 Normal 0.0-0.8 10*3/uL LAB EO# Eosinophils # (Auto) 0.3 Normal 0.0-0.45 10*3/uL LAB BA# Basophils # (Auto) 0.0 Normal 0.0-0.2 10*3/uL Result Comment: PERFORMED BY : [facility] [address] [place] [address] PATHOLOGIST DRIVER HELPER MEERA GRIFFITHS M.D. Performed By: #### PHOS, CMP , CBC, MG #### [facility] [address] [id number] [facility] COMPREHENSIVE METABOLIC PANEL Collected: 03/22/2024 6 :32 AM Status: F Source: [facility] TYPE CODE TESTS RESULT OUT OF RANGE REFERENCE UNITS LAB GLU Glucose 240 High 70-100 mg/dL Result Comment: Random Gluco se Reference Range is dependent on time and content of last meal. Glucose of more than 200 mg/dL in a nonstressed, ambulatory subject supports the diagnosis of Diabetes Mellitus. ADA recommended reference range LAB BUN Blood Urea Nitrogen 19 Normal 7-25 mg/d L LAB CREATT Creatinine 1.29 High 0.60-1.20 mg/dL LAB GFReNR Estimated GFR 49.014 LAB NA Sodium 137 Normal 136-145 mmol/L LAB K Potassium 3.6 Normal 3.5-5.1 mmol/L LAB CL Chloride 100 Normal 98-107 mmol/L LAB CO2 Carbon Dioxide 28.8 Normal 21.0-31.0 mmol/L LAB GAP Anion Gap 11.8 Normal 6.0-15.0 LAB CA Calcium 8.5 Low 8.6-10.3 mg/dL LAB TP Total Protein 6.3 Low 6.4-8.9 g/dL LAB ALB Albumin Level 3.0 Low 3.5-5.7 g/dL LAB GLOB Globulin 3.3 g/dL LAB AGRATIO Albumin/Globulin Ratio 0.9 LAB BILIT Bilirubin,Total 0.4 Normal 0.3-1.0 mg/dL LAB AST Aspartate Amino Transferase 13 Normal 13-39 U/L LAB ALT Alanine Aminotransferase 7 Normal 7-52 U/L LAB ALP Alkaline Phosphatase 48 Normal 34-104 U/L LAB CRCLPHA Creatinine Clr C alc Pharmacy 59.79 Performed By: #### PHOS, CMP , CBC, MG #### [facility] [address] [id number] [facility] PHOSPHORUS Collected: 6:32 AM Status: F Source: [facility] TYPE CODE TESTS RESULT OUT OF RANGE REFERENCE UNITS LAB PHOS Phosphorus 3.7 Normal 2.5-4.5 mg/dL Performed By: #### PHOS, CMP , CBC, MG #### [facility] [address] [id number] [facility] MAGNESIUM Collected: 6:32 AM Status: F Source: [facility] TYPE CODE TESTS RESULT OUT OF RANGE REFERENCE UNITS LAB MG Magnesium 1.6 Low 1.9-2.7 mg/dL Result Comment: PERFORMED BY : [place] [address] PATHOLOGIST DRIVER HELPER MEERA GRIFFITHS M.D. Performed By: #### PHOS, CMP , CBC, MG #### [facility] [address] [place], [place] [id number] [facility] GLUCOSE POCT GLUCOMETERS Collected: 03/22/2024 6:29 A M Status: F Source: [facility] TYPE CODE TESTS RESULT OUT OF RANGE REFERENCE UNITS LAB GLUPOC Glucose Poc Glucometers 264 mg/dL Result Comment: Random Gluco se Reference Range is dependent on time and content of last meal. Glucose of more than 200 mg/dL in a nonstressed, ambulatory subject supports the diagnosis of Diabetes Mellitus. LAB COMM1 Commemt1 Glu2: Cleaned Meter Result Comment: PERFORMED BY : [place] [address] PATHOLOGIST DRIVER HELPER MEERA GRIFFITHS M.D. Performed By: #### GLULS ### # Point of Care testing , GLUCOSE POCT GLUCOMETERS Collected: 03/22/2024 2:24 A M Status: F Source: [facility] TYPE CODE TESTS RESULT OUT OF RANGE REFERENCE UNITS LAB GLUPOC Glucose Poc Glucometers 260 mg/dL Result Comment: Random Gluco se Reference Range is dependent on time and content of last meal. Glucose of more than 200 mg/dL in a nonstressed, ambulatory subject supports the diagnosis of Diabetes Mellitus. PERFORMED BY: [place] [id number] PATHOLOGIST DRIVER HELPER MEERA GRIFFITHS M.D. Performed By: #### GLULS ### # Point of Care testing , GLUCOSE POCT GLUCOMETERS Collected: 03/21/2024 8:48 P M Status: F Source: [facility] TYPE CODE TESTS RESULT OUT OF RANGE REFERENCE UNITS LAB GLUPOC Glucose Poc Glucometers 387 mg/dL Result Comment: Random Gluco se Reference Range is dependent on time and content of last meal. Glucose of more than 200 mg/dL in a nonstressed, ambulatory subject supports the diagnosis of Diabetes Mellitus. LAB COMM1 Commemt1 Glu2: Cleaned Meter Result Comment: PERFORMED BY : [address] [place] [address] PATHOLOGIST DRIVER HELPER MEERA GRIFFITHS M.D. Performed By: #### GLULS ### # Point of Care testing , GLUCOSE POCT GLUCOMETERS Collected: 03/21/2024 4:28 P M Status: F Source: [facility] TYPE CODE TESTS RESULT OUT OF RANGE REFERENCE UNITS LAB GLUPOC Glucose Poc Glucometers 401 High Off Scale mg/dL Result Comment: Random Gluco se Reference Range is dependent on time and content of last meal. Glucose of more than 200 mg/dL in a nonstressed, ambulatory subject supports the diagnosis of Diabetes Mellitus. LAB COMM1 Commemt1 Result Comment: Glu2: Will R epeat Test PERFORMED BY: [address] [place] [address] PATHOLOGIST DRIVER HELPER MEERA GRIFFITHS M.D. Performed By: #### GLULS ### # Point of Care testing , GLUCOSE POCT GLUCOMETERS Collected: 03/21/2024 11:28 AM Status: F Source: [facility] TYPE CODE TESTS RESULT OUT OF RANGE REFERENCE UNITS LAB GLUPOC Glucose Poc Glucometers 245 mg/dL Result Comment: Random Gluc ose Reference Range is dependent on time and content of last meal. Glucose of more than 200 mg/dL in a nonstressed, ambulatory subject supports the diagnosis of Diabetes Mellitus. PERFORMED BY: [address] [place] [address] PATHOLOGIST DRIVER HELPER MEERA GRIFFITHS M.D. Performed By: #### GLULS ### # Point of Care testing , VANCOMYCIN,PEAK Collected: 11:22 AM Status: F Source: [facility] Order Comment: Comment ?DRAW 1 HOUR AFTER INFUSION COMPLETES Date of last dose?: 20240319 Time of last dose?: 2129 TYPE CODE TESTS RESULT OUT OF RANGE REFERENCE UNITS LAB VANCP Vancomycin,P eak 50.0 High 20.0-40.0 ug/mL Result Comment: Last dose: - PERFORMED BY: [place] [address] PATHOLOGIST DRIVER HELPER MEERA GRIFFITHS M.D. Performed By: #### VANCP ### # [place] [id number] [facility] GLUCOSE POCT GLUCOMETERS Collected: 03/21/2024 6:53 A M Status: F Source: [facility] TYPE CODE TESTS RESULT OUT OF RANGE REFERENCE UNITS LAB GLUPOC Glucose Poc Glucometers 191 mg/dL Result Comment: Random Gluco se Reference Range is dependent on time and content of last meal. Glucose of more than 200 mg/dL in a nonstressed, ambulatory subject supports the diagnosis of Diabetes Mellitus. LAB COMM1 Commemt1 Glu2: Cleaned Meter Result Comment: PERFORMED BY : [place] [address] PATHOLOGIST DRIVER HELPER MEERA GRIFFITHS M.D. Performed By: #### GLULS ### # Point of Care testing , COMPREHENSIVE METABOLIC PANEL Collected: 03/21/2024 6 :38 AM Status: F Source: [facility] TYPE CODE TESTS RESULT OUT OF RANGE REFERENCE UNITS LAB GLU Glucose 185 High 70-100 mg/dL Result Comment: Random Gluco se Reference Range is dependent on time and content of last meal. Glucose of more than 200 mg/dL in a nonstressed, ambulatory subject supports the diagnosis of Diabetes Mellitus. ADA recommended reference range LAB BUN Blood Urea Nitrogen 14 Normal 7-25 mg/d L LAB CREATT Creatinine 1.05 Normal 0.60-1.20 mg/dL LAB GFReNR Estimated GFR > 60.0 LAB NA Sodium 139 Normal 136-145 mmol/L LAB K Potassium 3.6 Normal 3.5-5.1 mmol/L LAB CL Chloride 102 Normal 98-107 mmol/L LAB CO2 Carbon Dioxide 27.4 Normal 21.0-31.0 mmol/L LAB GAP Anion Gap 13.2 Normal 6.0-15.0 LAB CA Calcium 8.5 Low 8.6-10.3 mg/dL LAB TP Total Protein 6.1 Low 6.4-8.9 g/dL LAB ALB Albumin Level 2.9 Low 3.5-5.7 g/dL LAB GLOB Globulin 3.2 g/dL LAB AGRATIO Albumin/Globulin Ratio 0.9 LAB BILIT Bilirubin,Total 0.3 Normal 0.3-1.0 mg/dL LAB AST Aspartate Amino Transferase 12 Low 13-39 U/L LAB ALT Alanine Aminotransferase 7 Normal 7-52 U/L LAB ALP Alkaline Phosphatase 48 Normal 34-104 U/L LAB CRCLPHA Creatinine Clr C alc Pharmacy 74.03 Performed By: #### ESR, CMP, CBC, PHOS, CRP, MG #### [address] PHOSPHORUS Collected: 6:38 AM Status: F Source: [facility] TYPE CODE TESTS RESULT OUT OF RANGE REFERENCE UNITS LAB PHOS Phosphorus 3.5 Normal 2.5-4.5 mg/dL Performed By: #### ESR, CMP, CBC, PHOS, CRP, MG #### [address] MAGNESIUM Collected: 6:38 AM Status: F Source: [facility] TYPE CODE TESTS RESULT OUT OF RANGE REFERENCE UNITS LAB MG Magnesium 1.5 Low 1.9-2.7 mg/dL Performed By: #### ESR, CMP, CBC, PHOS, CRP, MG #### [address] C-REACTIVE PROTEIN Collected: 03/21/2024 6:38 AM Sta tus: F Source: [facility] TYPE CODE TESTS RESULT OUT OF RANGE REFERENCE UNITS LAB CRP C-Reactive Protein 6.5 High 0.0-0.5 mg/dL Result Comment: PERFORMED BY : [place] [address] PATHOLOGIST DRIVER HELPER MEERA GRIFFITHS M.D. Performed By: #### ESR, CMP, CBC, PHOS, CRP, MG #### [address] COMPLETE BLOOD COUNT AUTO DIFF Collected: 03/21/2024 6:38 AM Status: F Source: [facility] TYPE CODE TESTS RESULT OUT OF RANGE REFERENCE UNITS LAB WBC White Blood Count 5.3 Normal 3.8-11.6 10*3/uL LAB UNWBC Uncorrected WBC 5.3 Normal 3.8-11.6 10*3/uL LAB RBC Red Blood Count 3.21 Low 3.60-5.00 LAB HGB Hemoglobin 9.6 Low 11.8-15.4 g/dL LAB HCT Hematocrit 29.1 Low 34.0-46.4 % LAB MCV Mean Corpuscular Volume 90.8 Normal 80-100 fL LAB MCH Mean Corpuscular Hemoglobin 29.8 Normal 24.7-34.3 pg LAB MCHC Mean Corpuscular HGB Conc 32.8 Normal 32.0-35.0 g/dL LAB RDW Red Cell Distribution Width 14.5 Normal 11.9-15.3 % LAB PLT Platelet Count 212 Normal 150-450 10*3/uL LAB MPV Mean Platelet Volume 10.1 Normal 6.3-10.7 fL LAB NE% Neutrophils % (Auto) 54.5 . % LAB LY% Lymphocytes % (Auto) 28.5 . % LAB MO% Monocytes % (Auto) 10.3 . % LAB EO% Eosinophils % (Auto) 6.0 . % LAB BA% Basophils % (Auto) 0.7 . % LAB NRBC% NRBC% 0.1 Normal 0-0.5 /100{WBC} LAB NE# Neutrophils # (Auto) 2.9 Normal 1.8-7.7 10*3/uL LAB LY# Lymphocytes # (Auto) 1.5 Normal 1.00-4.8 10*3/uL LAB MO# Monocytes # (Auto) 0.5 Normal 0.0-0.8 10*3/uL LAB EO# Eosinophils # (Auto) 0.3 Normal 0.0-0.45 10*3/uL LAB BA# Basophils # (Auto) 0.0 Normal 0.0-0.2 10*3/uL Performed By: #### ESR, CMP, CBC, PHOS, CRP, MG #### [facility] [address] [place] [address] [facility] ERYTHROCYTE SEDIMENTATION RATE Collected: 03/21/2024 6:38 AM Status: F Source: [facility] TYPE CODE TESTS RESULT OUT OF RANGE REFERENCE UNITS LAB ESR Erythrocyte Sedimentation Rate 116 High 0-29 Result Comment: PERFORMED BY : [place] [id number] PATHOLOGIST DRIVER HELPER MEERA GRIFFITHS M.D. Performed By: #### ESR, CMP, CBC, PHOS, CRP, MG #### [place] [id number] [facility] GLUCOSE POCT GLUCOMETERS Collected: 03/21/2024 2:23 A M Status: F Source: [facility] TYPE CODE TESTS RESULT OUT OF RANGE REFERENCE UNITS LAB GLUPOC Glucose Poc Glucometers 345 mg/dL Result Comment: Random Gluco se Reference Range is dependent on time and content of last meal. Glucose of more than 200 mg/dL in a nonstressed, ambulatory subject supports the diagnosis of Diabetes Mellitus. LAB COMM1 Commemt1 Glu2: Cleaned Meter Result Comment: PERFORMED BY : [address] [address] PATHOLOGIST DRIVER HELPER MEERA GRIFFITHS M.D. Performed By: #### GLULS ### # Point of Care testing , GLUCOSE POCT GLUCOMETERS Collected: 03/20/2024 9:30 P M Status: F Source: [facility] TYPE CODE TESTS RESULT OUT OF RANGE REFERENCE UNITS LAB GLUPOC Glucose Poc Glucometers 460 High Off Scale mg/dL Result Comment: Random Gluco se Reference Range is dependent on time and content of last meal. Glucose of more than 200 mg/dL in a nonstressed, ambulatory subject supports the diagnosis of Diabetes Mellitus. LAB COMM1 Commemt1 Result Comment: Glu2: WILL N OTIFY DR/CALL SPECIALIST COMM2 Commemt2 Cleaned Meter Result Comment: PERFORMED BY : [address] [address] PATHOLOGIST DRIVER HELPER MEERA GRIFFITHS M.D. Performed By: #### GLULS ### # Point of Care testing , GLUCOSE POCT GLUCOMETERS Collected: 03/20/2024 9:28 P M Status: F Source: [facility] TYPE CODE TESTS RESULT OUT OF RANGE REFERENCE UNITS LAB GLUPOC Glucose Poc Glucometers 455 High Off Scale mg/dL Result Comment: Random Gluco se Reference Range is dependent on time and content of last meal. Glucose of more than 200 mg/dL in a nonstressed, ambulatory subject supports the diagnosis of Diabetes Mellitus. LAB COMM1 Commemt1 Result Comment: Glu2: WILL N OTIFY DR/CALL SPECIALIST COMM2 Commemt2 Will Repeat Test Result Comment: PERFORMED BY : [address] [address] PATHOLOGIST DRIVER HELPER MEERA GRIFFITHS M.D. Performed By: #### GLULS ### # Point of Care testing , GLUCOSE POCT GLUCOMETERS Collected: 03/20/2024 4:21 P M Status: F Source: [facility] TYPE CODE TESTS RESULT OUT OF RANGE REFERENCE UNITS LAB GLUPOC Glucose Poc Glucometers 269 mg/dL Result Comment: Random Gluco se Reference Range is dependent on time and content of last meal. Glucose of more than 200 mg/dL in a nonstressed, ambulatory subject supports the diagnosis of Diabetes Mellitus. PERFORMED BY: [address] [address] PATHOLOGIST DRIVER HELPER MEERA GRIFFITHS M.D. Performed By: #### GLULS ### # Point of Care testing , GLUCOSE POCT GLUCOMETERS Collected: 03/20/2024 11:46 AM Status: F Source: [facility] TYPE CODE TESTS RESULT OUT OF RANGE REFERENCE UNITS LAB GLUPOC Glucose Poc Glucometers 226 mg/dL Result Comment: Random Gluco se Reference Range is dependent on time and content of last meal. Glucose of more than 200 mg/dL in a nonstressed, ambulatory subject supports the diagnosis of Diabetes Mellitus. PERFORMED BY: [facility] [address] [place] [address] PATHOLOGIST DRIVER HELPER MEERA GRIFFITHS M.D. Performed By: #### GLULS ### # Point of Care testing , GLUCOSE POCT GLUCOMETERS Collected: 03/20/2024 6:35 A M Status: F Source: [facility] TYPE CODE TESTS RESULT OUT OF RANGE REFERENCE UNITS LAB GLUPOC Glucose Poc Glucometers 120 mg/dL Result Comment: Random Gluco se Reference Range is dependent on time and content of last meal. Glucose of more than 200 mg/dL in a nonstressed, ambulatory subject supports the diagnosis of Diabetes Mellitus. PERFORMED BY: [facility] [place] [address] PATHOLOGIST DRIVER HELPER MEERA GRIFFITHS M.D. Performed By: #### GLULS ### # Point of Care testing , COMPLETE BLOOD COUNT AUTO DIFF Collected: 03/20/2024 4:00 AM Status: F Source: [facility] TYPE CODE TESTS RESULT OUT OF RANGE REFERENCE UNITS LAB WBC White Blood Count 4.9 Normal 3.8-11.6 10*3/uL LAB UNWBC Uncorrected WBC 4.9 Normal 3.8-11.6 10*3/uL LAB RBC Red Blood Count 3.45 Low 3.60-5.00 LAB HGB Hemoglobin 10.3 Low 11.8-15.4 g/dL LAB HCT Hematocrit 31.0 Low 34.0-46.4 % LAB MCV Mean Corpuscular Volume 90.0 Normal 80-100 fL LAB MCH Mean Corpuscular Hemoglobin 29.7 Normal 24.7-34.3 pg LAB MCHC Mean Corpuscular HGB Conc 33.0 Normal 32.0-35.0 g/dL LAB RDW Red Cell Distribution Width 14.7 Normal 11.9-15.3 % LAB PLT Platelet Count 205 Normal 150-450 10*3/uL LAB MPV Mean Platelet Volume 10.0 Normal 6.3-10.7 fL LAB NE% Neutrophils % (Auto) 53.5 . % LAB LY% Lymphocytes % (Auto) 29.8 . % LAB MO% Monocytes % (Auto) 9.1 . % LAB EO% Eosinophils % (Auto) 7.0 . % LAB BA% Basophils % (Auto) 0.6 . % LAB NRBC% NRBC% 0.0 Normal 0-0.5 /100{WBC} LAB NE# Neutrophils # (Auto) 2.6 Normal 1.8-7.7 10*3/uL LAB LY# Lymphocytes # (Auto) 1.5 Normal 1.00-4.8 10*3/uL LAB MO# Monocytes # (Auto) 0.4 Normal 0.0-0.8 10*3/uL LAB EO# Eosinophils # (Auto) 0.3 Normal 0.0-0.45 10*3/uL LAB BA# Basophils # (Auto) 0.0 Normal 0.0-0.2 10*3/uL Result Comment: PERFORMED BY : [facility] [address] [place] [address] PATHOLOGIST DRIVER HELPER MEERA GRIFFITHS M.D. Performed By: #### PHOS, CMP , MG, CBC #### [facility] [address] [place] [id number] [facility] COMPREHENSIVE METABOLIC PANEL Collected: 03/20/2024 4 :00 AM Status: F Source: [facility] TYPE CODE TESTS RESULT OUT OF RANGE REFERENCE UNITS LAB GLU Glucose 198 High 70-100 mg/dL Result Comment: Random Gluco se Reference Range is dependent on time and content of last meal. Glucose of more than 200 mg/dL in a nonstressed, ambulatory subject supports the diagnosis of Diabetes Mellitus. ADA recommended reference range LAB BUN Blood Urea Nitrogen 10 Normal 7-25 mg/d L LAB CREATT Creatinine 0.85 Normal 0.60-1.20 mg/dL LAB GFReNR Estimated GFR > 60.0 LAB NA Sodium 140 Normal 136-145 mmol/L LAB K Potassium 4.2 Normal 3.5-5.1 mmol/L LAB CL Chloride 105 Normal 98-107 mmol/L LAB CO2 Carbon Dioxide 26.3 Normal 21.0-31.0 mmol/L LAB GAP Anion Gap 12.9 Normal 6.0-15.0 LAB CA Calcium 8.8 Normal 8.6-10.3 mg/dL LAB TP Total Protein 6.5 Normal 6.4-8.9 g/dL LAB ALB Albumin Level 3.2 Low 3.5-5.7 g/dL LAB GLOB Globulin 3.3 g/dL LAB AGRATIO Albumin/Globulin Ratio 1.0 LAB BILIT Bilirubin,Total 0.4 Normal 0.3-1.0 mg/dL LAB AST Aspartate Amino Transferase 14 Normal 13-39 U/L LAB ALT Alanine Aminotransferase 9 Normal 7-52 U/L LAB ALP Alkaline Phosphatase 53 Normal 34-104 U/L LAB CRCLPHA Creatinine Clr C alc Pharmacy 93.38 Performed By: #### PHOS, CMP , MG, CBC #### [facility] [address] [place] [id number] [facility] PHOSPHORUS Collected: 4:00 AM Status: F Source: [facility] TYPE CODE TESTS RESULT OUT OF RANGE REFERENCE UNITS LAB PHOS Phosphorus 3.2 Normal 2.5-4.5 mg/dL Performed By: #### PHOS, CMP , MG, CBC #### [place] [id number] [facility] MAGNESIUM Collected: 4:00 AM Status: F Source: [facility] TYPE CODE TESTS RESULT OUT OF RANGE REFERENCE UNITS LAB MG Magnesium 1.8 Low 1.9-2.7 mg/dL Result Comment: PERFORMED BY : [place] [address] PATHOLOGIST DRIVER HELPER MEERA GRIFFITHS M.D. Performed By: #### PHOS, CMP , MG, CBC #### [place] [id number] [facility] GLUCOSE POCT GLUCOMETERS Collected: 03/19/2024 9:07 P M Status: F Source: [facility] TYPE CODE TESTS RESULT OUT OF RANGE REFERENCE UNITS LAB GLUPOC Glucose Poc Glucometers 313 mg/dL Result Comment: Random Gluco se Reference Range is dependent on time and content of last meal. Glucose of more than 200 mg/dL in a nonstressed, ambulatory subject supports the diagnosis of Diabetes Mellitus. PERFORMED BY: [place] [address] PATHOLOGIST DRIVER HELPER MEERA GRIFFITHS M.D. Performed By: #### GLULS ### # Point of Care testing , VANCOMYCIN,TROUGH Collected: 7:20 PM Status: F Source: [facility] Order Comment: Time of next dose? 629 Date of last dose?: 20240317 Time of last dose?: 1629 TYPE CODE TESTS RESULT OUT OF RANGE REFERENCE UNITS LAB VANCT Vancomycin, Trough 16.9 Normal 10.0-20.0 ug/mL Result Comment: Last dose: - PERFORMED BY: [place] [id number] PATHOLOGIST DRIVER HELPER MEERA GRIFFITHS M.D. Performed By: #### VANCT ### # [address] [place] [address] [facility] GLUCOSE POCT GLUCOMETERS Collected: 03/19/2024 5:51 P M Status: F Source: [facility] TYPE CODE TESTS RESULT OUT OF RANGE REFERENCE UNITS LAB GLUPOC Glucose Poc Glucometers 286 mg/dL Result Comment: Random Gluco se Reference Range is dependent on time and content of last meal. Glucose of more than 200 mg/dL in a nonstressed, ambulatory subject supports the diagnosis of Diabetes Mellitus. PERFORMED BY: [place] [address] PATHOLOGIST DRIVER HELPER MEERA GRIFFITHS M.D. Performed By: #### GLULS ### # Point of Care testing , AEROBIC CULTURE Observed: 03/19/2024 5:34 PM Status: F Source: [facility] Comment abdominal wound tiss ue culture ORGANISM: Achromobacter xylosoxidan MDRO (O:ACHXYLMDRO) Quantity of Growth Light Growth Comment abdominal wound tissue culture No Anaerobes Isolated 3 Days Comment abdominal wound tissue culture Gram Stain Result No Bacteria Seen Aerobic POONAM Charge (NMIC56) SUSCEPTIBILITY ORGANISM: O:ACHXYLMDRO ANTIBIOTIC INTERPRETATION POONAM Amikacin R >32 Aztreonam R >16 Cefepime I 16 Ceftazidime S 8 Ceftriaxone R >32 Gentamicin R >8 Piperacillin/Tazobactam S <8 Tobramycin R >8 S = SUSCEPTIBLE I = INTERMEDIATE R = RESISTANT BLANK = DATA NOT AVAILABLE, OR DRUG NOT ADVISABLE OR TESTED R* = RESISTANCE DUE TO EXTENDED SPECTRUM BETA-LACTAMASES ESBL = EXTENDED SPECTRUM BETA-LACTAMASE TFG = THYMIDINE-DEPENDENT STRAIN SAMAN = BETA-LACTAMASE POSITIVE IB = INDUCIBLE BETA-LACTAMASE. APPEARS IN PLACE OF 'S' WITH SPECIES KNOWN TO POSSESS INDUCIBLE BETA-LACTAMASES. POTENTIALLY THEY MAY BECOME RESISTANT TO ALL B-LACTAM DRUGS. PERFORMED BY: [place] [id number] PATHOLOGIST DRIVER HELPER MEERA GRIFFITHS M.D. Performed By: #### AERC #### [facility] [address] [place] [id number] [place] GLUCOSE POCT GLUCOMETERS Collected: 03/19/2024 3:11 P M Status: F Source: [facility] TYPE CODE TESTS RESULT OUT OF RANGE REFERENCE UNITS LAB GLUPOC Glucose Poc Glucometers 284 mg/dL Result Comment: Random Gluco se Reference Range is dependent on time and content of last meal. Glucose of more than 200 mg/dL in a nonstressed, ambulatory subject supports the diagnosis of Diabetes Mellitus. LAB COMM1 Commemt1 Glu2: Cleaned Meter Result Comment: PERFORMED BY : [place] [address] PATHOLOGIST DRIVER HELPER MEERA GRIFFITHS M.D. Performed By: #### GLULS ### # Point of Care testing , HCG,URINE Collected: 03/19/2024 2:11 PM Status: F Source: [facility] TYPE CODE TESTS RESULT OUT OF RANGE REFERENCE UNITS LAB UHCGQ HCG Qualitative,U rine Negative Result Comment: PERFORMED BY : [place] [address] PATHOLOGIST DRIVER HELPER MEERA GRIFFITHS M.D. Performed By: #### UHCG #### [facility] [address] [place], [place] [id number] [place] GLUCOSE POCT GLUCOMETERS Collected: 03/19/2024 12:03 PM Status: F Source: [facility] TYPE CODE TESTS RESULT OUT OF RANGE REFERENCE UNITS LAB GLUPOC Glucose Poc Glucometers 301 mg/dL Result Comment: Random Gluco se Reference Range is dependent on time and content of last meal. Glucose of more than 200 mg/dL in a nonstressed, ambulatory subject supports the diagnosis of Diabetes Mellitus. PERFORMED BY: [place] [id number] PATHOLOGIST DRIVER HELPER MEERA GRIFFITHS M.D. Performed By: #### GLULS ### # Point of Care testing , ECG 12 LEAD ECG Observed: 03/19/2024 11:25 AM Status: COMPLETED Source: [facility] ENTER [facility] Main [address] [address] Electrocardiograph Report Signed Patient: Mary Jane Schaeffer MR#: [id number] : 1970 Acct:[id number] Age/Sex: 53 / F ADM Date: 03/17/24 Loc: Room: [address] [place] [address] Type: ADM IN Attending Dr: Audra Wheat MD Ordering Provider: Arun De Souza MD Date of Service: 03/19/24 ECG/ECG 12 lead ECG: preop Copies to: Test Reason : Blood Pressure : */* mmHG Vent. Rate : 65 BPM Atrial Rate : 65 BPM P-R Int : 152 ms QRS Dur : 84 ms QT Int : 444 ms P-R-T Axes : -1 44 13 degrees QTcB Int : 461 ms Normal sinus rhythm Normal ECG When compared with ECG of 14-Jul-2012 16:26, No significant change was found Confirmed by TERESA WALKER [facility], HUSSAIN ([id number]) on 03/19/2024 12:58:05 PM Referred By: Electronically Signed By: HUSSAIN MOORE MD FAC Transcribed By: MUS Signed By Hussain Moore MD, FACC 03/19/24 1258 VANCOMYCIN,PEAK Collected: 9:00 AM Status: F Source: [facility] Order Comment: Comment ?DRAW 1 HOUR AFTER INFUSION COMPLETES Date of last dose?: 20240317 Time of last dose?: 1630 TYPE CODE TESTS RESULT OUT OF RANGE REFERENCE UNITS LAB VANCP Vancomycin, Peak 34.9 Normal 20.0-40.0 ug/mL Result Comment: Last dose: - PERFORMED BY: [place] [address] PATHOLOGIST DRIVER HELPER MEERA GRIFFITHS M.D. Performed By: #### VANCP ### # [address] GLUCOSE POCT GLUCOMETERS Collected: 03/19/2024 6:35 A M Status: F Source: [facility] TYPE CODE TESTS RESULT OUT OF RANGE REFERENCE UNITS LAB GLUPOC Glucose Poc Glucometers 171 mg/dL Result Comment: Random Gluco se Reference Range is dependent on time and content of last meal. Glucose of more than 200 mg/dL in a nonstressed, ambulatory subject supports the diagnosis of Diabetes Mellitus. PERFORMED BY: [facility] [place] [address] PATHOLOGIST DRIVER HELPER MEERA GRIFFITHS M.D. Performed By: #### GLULS ### # Point of Care testing , COMPLETE BLOOD COUNT AUTO DIFF Collected: 03/19/2024 6:05 AM Status: F Source: [facility] TYPE CODE TESTS RESULT OUT OF RANGE REFERENCE UNITS LAB WBC White Blood Count 5.0 Normal 3.8-11.6 10*3/uL LAB UNWBC Uncorrected WBC 5.0 Normal 3.8-11.6 10*3/uL LAB RBC Red Blood Count 3.08 Low 3.60-5.00 LAB HGB Hemoglobin 9.3 Low 11.8-15.4 g/dL LAB HCT Hematocrit 28.0 Low 34.0-46.4 % LAB MCV Mean Corpuscular Volume 90.9 Normal 80-100 fL LAB MCH Mean Corpuscular Hemoglobin 30.2 Normal 24.7-34.3 pg LAB MCHC Mean Corpuscular HGB Conc 33.2 Normal 32.0-35.0 g/dL LAB RDW Red Cell Distribution Width 14.6 Normal 11.9-15.3 % LAB PLT Platelet Count 196 Normal 150-450 10*3/uL LAB MPV Mean Platelet Volume 10.1 Normal 6.3-10.7 fL LAB NE% Neutrophils % (Auto) 55.2 . % LAB LY% Lymphocytes % (Auto) 27.1 . % LAB MO% Monocytes % (Auto) 11.0 . % LAB EO% Eosinophils % (Auto) 5.9 . % LAB BA% Basophils % (Auto) 0.8 . % LAB NRBC% NRBC% 0.0 Normal 0-0.5 /100{WBC} LAB NE# Neutrophils # (Auto) 2.8 Normal 1.8-7.7 10*3/uL LAB LY# Lymphocytes # (Auto) 1.4 Normal 1.00-4.8 10*3/uL LAB MO# Monocytes # (Auto) 0.6 Normal 0.0-0.8 10*3/uL LAB EO# Eosinophils # (Auto) 0.3 Normal 0.0-0.45 10*3/uL LAB BA# Basophils # (Auto) 0.0 Normal 0.0-0.2 10*3/uL Result Comment: PERFORMED BY : [place] [id number] PATHOLOGIST DRIVER HELPER MEERA GRIFFITHS M.D. Performed By: #### MG, PHOS, CBC, CMP #### [facility] [address] [id number] [facility] COMPREHENSIVE METABOLIC PANEL Collected: 03/19/2024 6 :05 AM Status: F Source: [facility] TYPE CODE TESTS RESULT OUT OF RANGE REFERENCE UNITS LAB GLU Glucose 167 High 70-100 mg/dL Result Comment: Random Gluco se Reference Range is dependent on time and content of last meal. Glucose of more than 200 mg/dL in a nonstressed, ambulatory subject supports the diagnosis of Diabetes Mellitus. ADA recommended reference range LAB BUN Blood Urea Nitrogen 10 Normal 7-25 mg/d L LAB CREATT Creatinine 0.76 Normal 0.60-1.20 mg/dL LAB GFReNR Estimated GFR > 60.0 LAB NA Sodium 141 Normal 136-145 mmol/L LAB K Potassium 3.9 Normal 3.5-5.1 mmol/L LAB CL Chloride 108 High 98-107 mmol/L LAB CO2 Carbon Dioxide 24.8 Normal 21.0-31.0 mmol/L LAB GAP Anion Gap 12.1 Normal 6.0-15.0 LAB CA Calcium 8.3 Low 8.6-10.3 mg/dL LAB TP Total Protein 6.0 Low 6.4-8.9 g/dL LAB ALB Albumin Level 2.8 Low 3.5-5.7 g/dL LAB GLOB Globulin 3.2 g/dL LAB AGRATIO Albumin/Globulin Ratio 0.9 LAB BILIT Bilirubin,Total 0.4 Normal 0.3-1.0 mg/dL LAB AST Aspartate Amino Transferase 13 Normal 13-39 U/L LAB ALT Alanine Aminotransferase 8 Normal 7-52 U/L LAB ALP Alkaline Phosphatase 48 Normal 34-104 U/L LAB CRCLPHA Creatinine Clr C alc Pharmacy 104.44 Performed By: #### MG, PHOS, CBC, CMP #### [facility] [address] [place] [address] [facility] PHOSPHORUS Collected: 6:05 AM Status: F Source: [facility] TYPE CODE TESTS RESULT OUT OF RANGE REFERENCE UNITS LAB PHOS Phosphorus 3.3 Normal 2.5-4.5 mg/dL Performed By: #### MG, PHOS, CBC, CMP #### [facility] [address] [place] [address] MAGNESIUM Collected: 6:05 AM Status: F Source: [facility] TYPE CODE TESTS RESULT OUT OF RANGE REFERENCE UNITS LAB MG Magnesium 1.6 Low 1.9-2.7 mg/dL Result Comment: PERFORMED BY : [place] [address] PATHOLOGIST DRIVER HELPER MEERA GRIFFITHS M.D. Performed By: #### MG, PHOS, CBC, CMP #### [facility] [address] [place], [place] [id number] [facility] GLUCOSE POCT GLUCOMETERS Collected: 03/19/2024 3:02 A M Status: F Source: [facility] TYPE CODE TESTS RESULT OUT OF RANGE REFERENCE UNITS LAB GLUPOC Glucose Poc Glucometers 213 mg/dL Result Comment: Random Gluco se Reference Range is dependent on time and content of last meal. Glucose of more than 200 mg/dL in a nonstressed, ambulatory subject supports the diagnosis of Diabetes Mellitus. PERFORMED BY: [place] [address] PATHOLOGIST DRIVER HELPER MEERA GRIFFITHS M.D. Performed By: #### GLULS ### # Point of Care testing , L Observed: 03/19/2024 12:00 AM Status: F Source: [facility] Specimen: [id number] Received: 03/22/24 Status: TIEN Rose Num: [id number] Spec Type: Surgical Subm Dr: Troy Moya MD Tissues: A Debridement-Skin/Other Than Skin (DEBRIDEMENT OF ABD WOUND) Procedures: HE, Gross/Micro L3 Age/ Patient Sex Location Account Attending Physician [facility],Authumn D 53/F 3T [id number] Billy Nickerson MD SPEC NUM: [id number] RECD: 03/22/24 STATUS: TIEN ROSE NUM: [id number] KEVIN: 03/19/24- SUBM DR: Troy Moya MD ENTERED: 03/22/24-[address] [facility] [address]: SPEC TYPE: Surgical DEPT: S ENTERED BY: [id number] [facility] BY: [id number] ORDERED: ANA, Gross/Micro L3 ORDERED: ANA, Gross/Micro L3 Pathological Diagnosis Abdominal wound, debridement, excision: - Tissue with fat necrosis. - Skin with no significant histopathology. Clinical Information Abdominal wound Gross Description The specimen is received in formalin with the patient's name and debridement of abdominal wound and consists of multiple portions of grace-pink skin with underlying necrotic tissue measuring 6.0 x 6.0 x 3.0 cm in aggregate. The specimen is serially sectioned. Case Planner sections are submitted in cassette A1. Microscopic Description Microscopic examination is performed. CPT Codes 52766 ----- ------- ----- ------- Specimen: [id number] Received: 03/22/24 Status: TIEN Rose Num: [id number] Spec Type: Surgical Subm Dr: Troy Moya MD Tissues: A Debridement-Skin/Other Than Skin (DEBRIDEMENT OF ABD WOUND) Procedures: ANA Gross/Micro L3 ----- ------- Patient: Mary Jane Schaeffer [id number] (Continued) ----- ------- Signed (signature on file) Humberto Garcia MD 03/24/24 1223 GLUCOSE POCT GLUCOMETERS Collected: 03/18/2024 9:03 P M Status: F Source: [facility] TYPE CODE TESTS RESULT OUT OF RANGE REFERENCE UNITS LAB GLUPOC Glucose Poc Glucometers 349 mg/dL Result Comment: Random Gluco se Reference Range is dependent on time and content of last meal. Glucose of more than 200 mg/dL in a nonstressed, ambulatory subject supports the diagnosis of Diabetes Mellitus. PERFORMED BY: [facility] [address] [place] [address] PATHOLOGIST DRIVER HELPER MEERA GRIFFITHS M.D. Performed By: #### GLULS ### # Point of Care testing , GLUCOSE POCT GLUCOMETERS Collected: 03/18/2024 4:22 P M Status: F Source: [facility] TYPE CODE TESTS RESULT OUT OF RANGE REFERENCE UNITS LAB GLUPOC Glucose Poc Glucometers 247 mg/dL Result Comment: Random Gluco se Reference Range is dependent on time and content of last meal. Glucose of more than 200 mg/dL in a nonstressed, ambulatory subject supports the diagnosis of Diabetes Mellitus. PERFORMED BY: [facility] [address] [facility] [place] [address] PATHOLOGIST DRIVER HELPER MEERA GRIFFITHS M.D. Performed By: #### GLULS ### # Point of Care testing , GLUCOSE POCT GLUCOMETERS Collected: 03/18/2024 11:59 AM Status: F Source: [facility] TYPE CODE TESTS RESULT OUT OF RANGE REFERENCE UNITS LAB GLUPOC Glucose Poc Glucometers 255 mg/dL Result Comment: Random Gluco se Reference Range is dependent on time and content of last meal. Glucose of more than 200 mg/dL in a nonstressed, ambulatory subject supports the diagnosis of Diabetes Mellitus. PERFORMED BY: [place] [address] PATHOLOGIST DRIVER HELPER MEERA GRIFFITHS M.D. Performed By: #### GLULS ### # Point of Care testing , SUPERFICIAL WOUND CULTURE Observed: 03/02 9:45 AM Status: F Source: [facility] MDRO results called at 1005 on 03/20/24 ORGANISM: Achromobacter xylosoxidan MDRO (O:ACHXYLMDRO) Quantity of Growth Light Growth Aerobic POONAM Charge (NMIC56) SUSCEPTIBILITY ORGANISM: O:ACHXYLMDRO ANTIBIOTIC INTERPRETATION POONAM Amikacin R >32 Aztreonam R >16 Cefepime R >16 Ceftazidime I 16 Ceftriaxone R >32 Gentamicin R >8 Piperacillin/Tazobactam S <8 Tobramycin R >8 S = SUSCEPTIBLE I = INTERMEDIATE R = RESISTANT BLANK = DATA NOT AVAILABLE, OR DRUG NOT ADVISABLE OR TESTED R* = RESISTANCE DUE TO EXTENDED SPECTRUM BETA-LACTAMASES ESBL = EXTENDED SPECTRUM BETA-LACTAMASE TFG = THYMIDINE-DEPENDENT STRAIN SAMAN = BETA-LACTAMASE POSITIVE IB = INDUCIBLE BETA-LACTAMASE. APPEARS IN PLACE OF 'S' WITH SPECIES KNOWN TO POSSESS INDUCIBLE BETA-LACTAMASES. POTENTIALLY THEY MAY BECOME RESISTANT TO ALL B-LACTAM DRUGS. PERFORMED BY: [place] [address] PATHOLOGIST DRIVER HELPER MEERA GRIFFITHS M.D. Performed By: #### CUSUP ### # [place] [id number] [facility] COMPLETE BLOOD COUNT AUTO DIFF Collected: 03/18/2024 6:48 AM Status: F Source: [facility] TYPE CODE TESTS RESULT OUT OF RANGE REFERENCE UNITS LAB WBC White Blood Count 4.9 Normal 3.8-11.6 10*3/uL LAB UNWBC Uncorrected WBC 4.9 Normal 3.8-11.6 10*3/uL LAB RBC Red Blood Count 3.08 Low 3.60-5.00 LAB HGB Hemoglobin 9.3 Low 11.8-15.4 g/dL LAB HCT Hematocrit 27.9 Low 34.0-46.4 % LAB MCV Mean Corpuscular Volume 90.6 Normal 80-100 fL LAB MCH Mean Corpuscular Hemoglobin 30.1 Normal 24.7-34.3 pg LAB MCHC Mean Corpuscular HGB Conc 33.2 Normal 32.0-35.0 g/dL LAB RDW Red Cell Distribution Width 14.6 Normal 11.9-15.3 % LAB PLT Platelet Count 177 Decreased 150-450 10*3/uL LAB MPV Mean Platelet Volume 10.1 Normal 6.3-10.7 fL LAB NE% Neutrophils % (Auto) 53.5 . % LAB LY% Lymphocytes % (Auto) 28.4 . % LAB MO% Monocytes % (Auto) 11.9 . % LAB EO% Eosinophils % (Auto) 5.2 . % LAB BA% Basophils % (Auto) 1.0 . % LAB NRBC% NRBC% 0.1 Normal 0-0.5 /100{WBC } LAB NE# Neutrophils # (Auto) 2.6 Normal 1.8-7.7 10*3/uL LAB LY# Lymphocytes # (Auto) 1.4 Normal 1.00-4.8 10*3/uL LAB MO# Monocytes # (Auto) 0.6 Normal 0.0-0.8 10*3/uL LAB EO# Eosinophils # (Auto) 0.3 Normal 0.0-0.45 10*3/uL LAB BA# Basophils # (Auto) 0.0 Normal 0.0-0.2 10*3/uL Result Comment: PERFORMED BY : [facility] [address] [place] [address] PATHOLOGIST DRIVER HELPER MEERA GRIFFITHS M.D. Performed By: #### CBC, STEPHEN, TSH3, FE and TIBC, MG, PHOS, CMP, [id number] #### [facility] [address] [place], [place] [address] COMPREHENSIVE METABOLIC PANEL Collected: 03/18/2024 6 :48 AM Status: F Source: [facility] TYPE CODE TESTS RESULT OUT OF RANGE REFERENCE UNITS LAB GLU Glucose 186 High 70-100 mg/dL Result Comment: Random Gluco se Reference Range is dependent on time and content of last meal. Glucose of more than 200 mg/dL in a nonstressed, ambulatory subject supports the diagnosis of Diabetes Mellitus. ADA recommended reference range LAB BUN Blood Urea Nitrogen 14 Normal 7-25 mg/d L LAB CREATT Creatinine 0.74 Normal 0.60-1.20 mg/dL LAB GFReNR Estimated GFR > 60.0 LAB NA Sodium 141 Normal 136-145 mmol/L LAB K Potassium 3.9 Normal 3.5-5.1 mmol/L LAB CL Chloride 108 High 98-107 mmol/L LAB CO2 Carbon Dioxide 25.8 Normal 21.0-31.0 mmol/L LAB GAP Anion Gap 11.1 Normal 6.0-15.0 LAB CA Calcium 8.2 Low 8.6-10.3 mg/dL LAB TP Total Protein 5.7 Low 6.4-8.9 g/dL LAB ALB Albumin Level 2.8 Low 3.5-5.7 g/dL LAB GLOB Globulin 2.9 g/dL LAB AGRATIO Albumin/Globulin Ratio 1.0 LAB BILIT Bilirubin,Total 0.6 Normal 0.3-1.0 mg/dL LAB AST Aspartate Amino Transferase 18 Normal 13-39 U/L LAB ALT Alanine Aminotransferase 10 Normal 7-52 U/L LAB ALP Alkaline Phosphatase 46 Normal 34-104 U/L LAB CRCLPHA Creatinine Clr C alc Pharmacy 105.91 Performed By: #### CBC, STEPHEN, TSH3, FE and TIBC, MG, PHOS, CMP, [id number] #### [facility] [address] PHOSPHORUS Collected: 6:48 AM Status: F Source: [facility] TYPE CODE TESTS RESULT OUT OF RANGE REFERENCE UNITS LAB PHOS Phosphorus 3.9 Normal 2.5-4.5 mg/dL Performed By: #### CBC, STEPHEN, TSH3, FE and TIBC, MG, PHOS, CMP, [id number] #### [facility] [address] MAGNESIUM Collected: 6:48 AM Status: F Source: [facility] TYPE CODE TESTS RESULT OUT OF RANGE REFERENCE UNITS LAB MG Magnesium 1.6 Low 1.9-2.7 mg/dL Result Comment: PERFORMED BY : [place] [address] PATHOLOGIST DRIVER HELPER MEERA GRIFFITHS M.D. Performed By: #### CBC, STEPHEN, TSH3, FE and TIBC, MG, PHOS, CMP, [id number] #### [address] IRON AND TIBC PROFILE Collected: 03/18/2024 6:48 AM Status: F Source: [facility] TYPE CODE TESTS RESULT OUT OF RANGE REFERENCE UNITS LAB FE Iron 23 Low 50-212 ug/dL LAB TIBCT Total Iron Binding Capacity 210 Low 255-450 ug/dL LAB FESAT% % Iron Saturation 11.0 Low 20-50 % LAB TRANS Transferrin 150 Low 203-362 mg/dL Performed By: #### CBC, STEPHEN, TSH3, FE and TIBC, MG, PHOS, CMP, [id number] #### [address] FERRITIN Collected: 6:48 AM Status: F Source: [facility] TYPE CODE TESTS RESULT OUT OF RANGE REFERENCE UNITS LAB STEPHEN Ferritin 491.1 High 11.0-306.8 ng/mL Performed By: #### CBC, STEPHEN, TSH3, FE and TIBC, MG, PHOS, CMP, [id number] #### [facility] [address] [place] [address] VIT. B12/FOLATE PROFILE Collected: 03/02 6:48 AM Status: F Source: [facility] TYPE CODE TESTS RESULT OUT OF RANGE REFERENCE UNITS LAB B12 Vitamin B12 620 Normal 180-914 pg/mL LAB FOL Folate 23.0 >5.9 ng/mL Result Comment: Folate refer ence range: >5.9 ng/ml The WHO technical consultation on folate and vitamin b12 deficiencies has determined that folate concentrations less than 4 ng/ml are considered deficient. Performed By: #### CBC, STEPHEN, TSH3, FE and TIBC, MG, PHOS, CMP, [id number] #### [address] THYROID STIMULATING HORMONE Collected: 03/18/2024 6:4 8 AM Status: F Source: [facility] TYPE CODE TESTS RESULT OUT OF RANGE REFERENCE UNITS LAB TSH3 Thyroid Stimulating Hormone 8.44 High 0.45-5.33 u[iU]/mL Result Comment: PERFORMED BY : [place] [address] PATHOLOGIST DRIVER HELPER MEERA GRIFFITHS M.D. Performed By: #### CBC, STEPHEN, TSH3, FE and TIBC, MG, PHOS, CMP, [id number] #### [address] GLUCOSE POCT GLUCOMETERS Collected: 03/18/2024 1:53 A M Status: F Source: [facility] TYPE CODE TESTS RESULT OUT OF RANGE REFERENCE UNITS LAB GLUPOC Glucose Poc Glucometers 134 mg/dL Result Comment: Random Gluco se Reference Range is dependent on time and content of last meal. Glucose of more than 200 mg/dL in a nonstressed, ambulatory subject supports the diagnosis of Diabetes Mellitus. PERFORMED BY: [place] [address] PATHOLOGIST DRIVER HELPER MEERA GRIFFITHS M.D. Performed By: #### GLULS ### # Point of Care testing , CT ABDOMEN PELVIS WO CON Observed: 03/17 8:33 PM Status: COMPLETED Source: [facility] ENTER [facility] Main [place] [id number] CT Scan Report Signed Patient: Mary Jane Schaeffer MR#: [id number] : 1970 Acct:[id number] Age/Sex: 53 / F ADM Date: 03/17/24 Loc: ER Room: Type: [facility] ER Attending Dr: Copies to: LUBNA Blount MD Ordering Provider: Audra Wheat MD Date of Service: 03/17/24 CT/CT abdomen pelvis wo con: large abdominal wound wall CT ABDOMEN AND PELVIS WITHOUT INTRAVENOUS CONTRAST: CLINICAL HISTORY: Large right-sided abdominal wound due to spider bite to right groin. Seen yesterday. COMPARISON: None TECHNIQUE: Spiral images were obtained through the abdomen and pelvis without intravenous contrast. This CT exam was performed using one or more following dose reduction techniques: Automated exposure control, adjustment of the mA and/or kV according to patient size, or use of iterative reconstruction technique. FINDINGS: Lung Bases: [Mild bibasilar atelectasis/scarring.] Organs:Suboptimal evaluation due to lack of IV contrast. Gallbladder has been removed. Hepatosplenomegaly. Pancreas and adrenal glands appear unremarkable. Kidneys demonstrate no stones or hydronephrosis. Abdominal aorta appears normal in caliber.[ GI: Stomach is grossly unremarkable. Small bowel appears nondilated. No acute colonic abnormality is seen.[ Pelvis:[Urinary bladder is grossly unremarkable. Uterus has been removed. No adnexal mass.] Peritoneum/Retroperitoneum:No free air free fluid or lymphadenopathy.[ Abd wall/Bones:Abdominal wall demonstrates a bone involving the patient's mass with associated soft tissue gas. No fluid collection is seen to suggest underlying abscess. Osseous structures demon strate degenerative change.[ CT/CT abdomen pelvis wo con IMPRESSION: A wound is seen involving the right aspect of the patient's pannus with associated soft tissue gas. No collection is seen to suggest underlying abscess. No acute intra-abdominal process is seen. Impression dictated by: Nino Patino Jr., D.O.03/17/2024 8:35 PM Dictation Location: [place] [address] Transcribed By: [facility] 03/17/242034 Dictated By: Nino Patino Jr, DO 03/17/242032 Signed By: <Electronically signed by Nino Patino Jr, DO in OV> 03/17/242034 SUPERFICIAL WOUND CULTURE Observed: 03/02 8:11 PM Status: F Source: [facility] MDRO results called at 1005 on 03/20/24 ORGANISM: Achromobacter xylosoxidan MDRO (O:ACHXYLMDRO) Quantity of Growth Heavy Growth Aerobic POONAM Charge (NMIC56) SUSCEPTIBILITY ORGANISM: O:ACHXYLMO ANTIBIOTIC INTERPRETATION POONAM Amikacin R >32 Aztreonam R >16 Cefepime R >16 Ceftazidime S 8 Ceftriaxone R >32 Gentamicin R >8 Piperacillin/Tazobactam S <8 Tobramycin R >8 S = SUSCEPTIBLE I = INTERMEDIATE R = RESISTANT BLANK = DATA NOT AVAILABLE, OR DRUG NOT ADVISABLE OR TESTED R* = RESISTANCE DUE TO EXTENDED SPECTRUM BETA-LACTAMASES ESBL = EXTENDED SPECTRUM BETA-LACTAMASE TFG = THYMIDINE-DEPENDENT STRAIN SAMAN = BETA-LACTAMASE POSITIVE IB = INDUCIBLE BETA-LACTAMASE. APPEARS IN PLACE OF 'S' WITH SPECIES KNOWN TO POSSESS INDUCIBLE BETA-LACTAMASES. POTENTIALLY THEY MAY BECOME RESISTANT TO ALL B-LACTAM DRUGS. PERFORMED BY: [place] [address] PATHOLOGIST DRIVER HELPER MEERA GRIFFITHS M.D. Performed By: #### CUSUP ### # [address] BLOOD CULTURE Observed: 03/17/2024 6:20 PM Status: F Source: [facility] NO GROWTH 5 DAYS PERFORMED BY: [place] [address] PATHOLOGIST DRIVER HELPER MEERA GRIFFITHS M.D. Performed By: #### CMP, CUBL D, CBC #### [address] LACTIC ACID Collected: 5:43 PM Status: F Source: [facility] TYPE CODE TESTS RESULT OUT OF RANGE REFERENCE UNITS LAB LACTIC Lactic Acid 1.9 0.5-2.2 mmol/L Result Comment: PERFORMED BY : [place] [address] PATHOLOGIST DRIVER HELPER MEERA GRIFFITHS M.D. Performed By: #### LACTIC, E SR, CRP #### [place] [id number] [facility] C-REACTIVE PROTEIN Collected: 03/17/2024 5:43 PM Sta tus: F Source: [facility] TYPE CODE TESTS RESULT OUT OF RANGE REFERENCE UNITS LAB CRP C-Reactive Protein 9.0 High 0.0-0.5 mg/dL Result Comment: PERFORMED BY : [place] [address] PATHOLOGIST DRIVER HELPER MEERA GRIFFITHS M.D. Performed By: #### LACTIC, E SR, CRP #### [facility] [address] [place], [place] [id number] [facility] ERYTHROCYTE SEDIMENTATION RATE Collected: 03/17/2024 5:43 PM Status: F Source: [facility] TYPE CODE TESTS RESULT OUT OF RANGE REFERENCE UNITS LAB ESR Erythrocyte Sedimentation Rate 114 High 0-29 Result Comment: PERFORMED BY : [place] [address] PATHOLOGIST DRIVER HELPER MEERA GRIFFITHS M.D. Performed By: #### LACTIC, E SR, CRP #### [facility] [address] [place], [place] [id number] [facility] COMPLETE BLOOD COUNT AUTO DIFF Collected: 03/17/2024 5:43 PM Status: F Source: [facility] TYPE CODE TESTS RESULT OUT OF RANGE REFERENCE UNITS LAB WBC White Blood Count 6.1 Normal 3.8-11.6 10*3/uL LAB UNWBC Uncorrected WBC 6.1 Normal 3.8-11.6 10*3/uL LAB RBC Red Blood Count 3.45 Low 3.60-5.00 LAB HGB Hemoglobin 10.4 Low 11.8-15.4 g/dL LAB HCT Hematocrit 31.6 Low 34.0-46.4 % LAB MCV Mean Corpuscular Volume 91.5 Normal 80-100 fL LAB MCH Mean Corpuscular Hemoglobin 30.2 Normal 24.7-34.3 pg LAB MCHC Mean Corpuscular HGB Conc 33.0 Normal 32.0-35.0 g/dL LAB RDW Red Cell Distribution Width 14.9 Normal 11.9-15.3 % LAB PLT Platelet Count 227 Normal 150-450 10*3/uL LAB MPV Mean Platelet Volume 10.5 Normal 6.3-10.7 fL LAB MDW Monocyte Distribution Width 22.55 High 0.00-20.00 % Result Comment: For adults i n ED, MDW > 20.0 may be associated with a higher risk of sepsis during the first 12 hrs of hospital admission LAB NE% Neutrophils % (Auto) 62.3 . % LAB LY% Lymphocytes % (Auto) 24.8 . % LAB MO% Monocytes % (Auto) 9.2 . % LAB EO% Eosinophils % (Auto) 2.9 . % LAB BA% Basophils % (Auto) 0.8 . % LAB NRBC% NRBC% 0.1 Normal 0-0.5 /100{WBC } LAB NE# Neutrophils # (Auto) 3.8 Normal 1.8-7.7 10*3/uL LAB LY# Lymphocytes # (Auto) 1.5 Normal 1.00-4.8 10*3/uL LAB MO# Monocytes # (Auto) 0.6 Normal 0.0-0.8 10*3/uL LAB EO# Eosinophils # (Auto) 0.2 Normal 0.0-0.45 10*3/uL LAB BA# Basophils # (Auto) 0.1 Normal 0.0-0.2 10*3/uL Result Comment: PERFORMED BY : [place] [address] PATHOLOGIST DRIVER HELPER MEERA GRIFFITHS M.D. Performed By: #### CMP, CUBL D, CBC #### [address] COMPREHENSIVE METABOLIC PANEL Collected: 03/17/2024 5 :43 PM Status: F Source: [facility] TYPE CODE TESTS RESULT OUT OF RANGE REFERENCE UNITS LAB GLU Glucose 132 High 70-100 mg/dL Result Comment: Random Gluco se Reference Range is dependent on time and content of last meal. Glucose of more than 200 mg/dL in a nonstressed, ambulatory subject supports the diagnosis of Diabetes Mellitus. ADA recommended reference range LAB BUN Blood Urea Nitrogen 19 Normal 7-25 mg/d L LAB CREATT Creatinine 0.81 Normal 0.60-1.20 mg/dL LAB GFReNR Estimated GFR > 60.0 LAB NA Sodium 143 Normal 136-145 mmol/L LAB K Potassium 3.7 Normal 3.5-5.1 mmol/L LAB CL Chloride 109 High 98-107 mmol/L LAB CO2 Carbon Dioxide 22.6 Normal 21.0-31.0 mmol/L LAB GAP Anion Gap 15.1 High 6.0-15.0 LAB CA Calcium 8.5 Low 8.6-10.3 mg/dL LAB TP Total Protein 6.6 Normal 6.4-8.9 g/dL LAB ALB Albumin Level 3.2 Low 3.5-5.7 g/dL LAB GLOB Globulin 3.4 g/dL LAB AGRATIO Albumin/Globulin Ratio 0.9 LAB BILIT Bilirubin,Total 0.6 Normal 0.3-1.0 mg/dL LAB AST Aspartate Amino Transferase 23 Normal 13-39 U/L LAB ALT Alanine Aminotransferase 12 Normal 7-52 U/L LAB ALP Alkaline Phosphatase 51 Normal 34-104 U/L LAB CRCLPHA Creatinine Clr C alc Pharmacy 96.21 Result Comment: PERFORMED BY : [place] [address] PATHOLOGIST DRIVER HELPER MEERA GRIFFITHS M.D. Performed By: #### TIESHA MATAL D, CBC #### [facility] [address] [place], [place] [id number] [facility] BLOOD CULTURE Observed: 03/17/2024 5:43 PM Status: F Source: [facility] NO GROWTH 5 DAYS PERFORMED BY: [place] [address] PATHOLOGIST DRIVER HELPER MEERA GRIFFITHS M.D. Performed By: #### CMP, CUBL D, CBC #### [facility] [address] [place], [place] [phone] [facility] BEDSIDE GLUCOSE LAB Collected: 02/27/2024 4:07 PM Status: COMPLETED Source: [facility] TYPE CODE TESTS RESULT OUT OF RANGE REFERENCE UNITS LAB BEDG([facility]) BEDSIDE GLUCOSE LAB 429 High Alert 65-99 mg/dL BEDSIDE GLUCOSE LAB Collected: 02/27/2024 11:35 AM Status: COMPLETED Source: [facility] TYPE CODE TESTS RESULT OUT OF RANGE REFERENCE UNITS LAB BEDG([facility]) BEDSIDE GLUCOSE LAB 326 High 65-99 mg/dL CBC AND AUTO DIFF Collected: 02/27/2024 5:08 AM Status: COMPLETED Source: [facility] TYPE CODE TESTS RESULT OUT OF RANGE REFERENCE UNITS LAB WBC(LOINC) WBC COUNT 7.0 4.0-11.0 X10E9/L LAB RBC(LOINC) RBC COUNT 2.74 Low 3.80-5.20 X10E12/L LAB HGB(LOINC) HEMOGLOBIN 8.4 Low 11.7-15.5 g/dL LAB HCT(LOINC) HEMATOCRIT 25.6 Low 35-47 % LAB MCV(LOINC) MCV 93 80-100 fL LAB MCH(LOINC) MCH 30.7 27-34 pg LAB MCHC(LOINC) MCHC 32.8 32-36 g/dL LAB RDW(LOINC) RDW 13.7 11.5-15.0 % LAB PLTC(LOINC) PLATELET COUNT 239 150-450 X10E9 /L LAB MPV(LOINC) MPV 10.4 7-12 fL LAB NEUT(LOINC) % NEUTROPHILS 62.8 % LAB LYMP(LOINC) % LYMPHOCYTES 25.1 % LAB MONO(LOINC) % MONOCYTES 7.8 % LAB EOS(LOINC) % EOSINOPHILS 3.8 % LAB BASO(LOINC) % BASOPHILS 0.5 % LAB ANEUT(LOINC) ABSOLUTE NEUTROPHIL 4.4 1.5-6.6 X10E9/L LAB ALYMP(LOINC) ABSOLUTE LYMPHOCYTE 1.8 1.0-3.5 X10E9/L LAB AMONO(LOINC) ABSOLUTE MONOCYTE 0.5 0-0.9 X10E9/L LAB AEOS(LOINC) ABSOLUTE EOSINOPHIL 0.3 0.0-0.4 X10E9/L LAB ABASO(LOINC) ABSOLUTE BASOPHIL 0.0 0.0-0.2 X10E9/L Performed By: #### CBCA, CMP , 64345-2 #### [facility] ([id number]) [address] [place] [address], [place] [address] COMPREHENSIVE METABOLIC PANEL Collected: 2023 5:08 AM Status: COMPLETED Source: [facility] TYPE CODE TESTS RESULT OUT OF RANGE REFERENCE UNITS LAB NA(LOINC) SODIUM 135 134-146 mmol/L LAB K(LOINC) POTASSIUM 4.7 3.5-5.0 mmol/L LAB CL(LOINC) CHLORIDE 105 98-109 mmol/L LAB CO2(LOINC) CARBON DIOXIDE 21 Low 22-32 mmol/L LAB AGAP(LOINC) ANION GAP 9 5-15 mmol/L LAB BUN(LOINC) BLOOD UREA NITROGEN 43 High 5-23 mg/dL LAB CRET(LOINC) CREATININE 1.22 High 0.40-1.00 mg/dL Result Comment: METHOD TRACE ABLE TO IDMS STANDARD LAB GLU(LOINC) GLUCOSE 297 High 65-99 mg/dL LAB CA(LOINC) CALCIUM 8.7 8.5-10.5 mg/dL LAB TP(LOINC) TOTAL PROTEIN 6.3 6.0-8.0 g/dL LAB ALB(LOINC) ALBUMIN 2.4 Low 3.2-5.3 g/dL LAB ALK(LOINC) ALKALINE PHOSPHATASE 40 39-130 U/L LAB AST(LOINC) AST 17 0-41 U/L LAB ALT1(LOINC) ALT 15 0-31 U/L LAB TBIL(LOINC) BILIRUBIN,TOTAL 0.6 0.3-1.2 mg/d L LAB EGFR(LOINC) eGFR (CKD-EPI) NON-RACE DEPENDENT 52 Low >59 ml/min/1 .73sq.m Result Comment: Reported eGFR is based on the CKD-EPI 2020 equation that does not use a race coefficient. Performed By: #### CHRISTINE, DearLocal , [id number] #### [facility] ([id number]) [address] [place] [address] MAGNESIUM Collected: 02/27/2024 5:08 AM S tatus: COMPLETED Source: [facility] TYPE CODE TESTS RESULT OUT OF RANGE REFERENCE UNITS LAB MG(LOINC) MAGNESIUM 1.8 1.8-2.6 mg/dL Performed By: #### CBCA, CMP , [id number] #### [facility] ([id number]) [address] [place] [address] BEDSIDE GLUCOSE LAB Collected: 02/26/2024 9:10 PM Status: COMPLETED Source: [facility] TYPE CODE TESTS RESULT OUT OF RANGE REFERENCE UNITS LAB BEDG(LOINC) BEDSIDE GLUCOSE LAB 343 High 65-99 mg/dL BEDSIDE GLUCOSE LAB Collected: 02/26/2024 3:18 PM Status: COMPLETED Source: [facility] TYPE CODE TESTS RESULT OUT OF RANGE REFERENCE UNITS LAB BEDG(LOINC) BEDSIDE GLUCOSE LAB 339 High 65-99 mg/dL BEDSIDE GLUCOSE LAB Collected: 02/26/2024 12:00 PM Status: COMPLETED Source: [facility] TYPE CODE TESTS RESULT OUT OF RANGE REFERENCE UNITS LAB BEDG(LOINC) BEDSIDE GLUCOSE LAB 275 High 65-99 mg/dL CBC AND AUTO DIFF Collected: 02/26/2024 5:02 AM Status: COMPLETED Source: [facility] TYPE CODE TESTS RESULT OUT OF RANGE REFERENCE UNITS LAB WBC(LOINC) WBC COUNT 6.5 4.0-11.0 X10E9/L LAB RBC(LOINC) RBC COUNT 2.72 Low 3.80-5.20 X10E12/L LAB HGB(LOINC) HEMOGLOBIN 8.4 Low 11.7-15.5 g/dL LAB HCT(LOINC) HEMATOCRIT 25.4 Low 35-47 % LAB MCV(LOINC) MCV 93 80-100 fL LAB MCH(LOINC) MCH 30.9 27-34 pg LAB MCHC(LOINC) MCHC 33.1 32-36 g/dL LAB RDW(LOINC) RDW 13.7 11.5-15.0 % LAB PLTC(LOINC) PLATELET COUNT 232 150-450 X10E9 /L LAB MPV(LOINC) MPV 10.1 7-12 fL LAB NEUT(LOINC) % NEUTROPHILS 59.3 % LAB LYMP(LOINC) % LYMPHOCYTES 28.2 % LAB MONO(LOINC) % MONOCYTES 8.5 % LAB EOS(LOINC) % EOSINOPHILS 3.4 % LAB BASO(LOINC) % BASOPHILS 0.6 % LAB ANEUT(LOINC) ABSOLUTE NEUTROPHIL 3.8 1.5-6.6 X10E9/L LAB ALYMP(LOINC) ABSOLUTE LYMPHOCYTE 1.8 1.0-3.5 X10E9/L LAB AMONO(LOINC) ABSOLUTE MONOCYTE 0.6 0-0.9 X10E9/L LAB AEOS(LOINC) ABSOLUTE EOSINOPHIL 0.2 0.0-0.4 X10E9/L LAB ABASO(LOINC) ABSOLUTE BASOPHIL 0.0 0.0-0.2 X10E9/L Performed By: #### CBCA, 191 23-9, CMP #### [facility] ([id number]) [address] [place] [address] COMPREHENSIVE METABOLIC PANEL Collected: 2023 5:02 AM Status: COMPLETED Source: [facility] TYPE CODE TESTS RESULT OUT OF RANGE REFERENCE UNITS LAB NA(LOINC) SODIUM 133 Low 134-146 mmol/L LAB K(LOINC) POTASSIUM 4.8 3.5-5.0 mmol/L LAB CL(LOINC) CHLORIDE 102 98-109 mmol/L LAB CO2(LOINC) CARBON DIOXIDE 21 Low 22-32 mmol/L LAB AGAP(LOINC) ANION GAP 10 5-15 mmol/L LAB BUN(LOINC) BLOOD UREA NITROGEN 46 High 5-23 mg/dL LAB CRET(LOINC) CREATININE 1.48 High 0.40-1.00 mg/dL Result Comment: METHOD TRACE ABLE TO IDMS STANDARD LAB GLU(LOINC) GLUCOSE 344 High 65-99 mg/dL LAB CA(LOINC) CALCIUM 8.5 8.5-10.5 mg/dL LAB TP(LOINC) TOTAL PROTEIN 6.4 6.0-8.0 g/dL LAB ALB(LOINC) ALBUMIN 2.5 Low 3.2-5.3 g/dL LAB ALK(LOINC) ALKALINE PHOSPHATASE 38 Low 39-130 U/L LAB AST(LOINC) AST 15 0-41 U/L LAB ALT1(LOINC) ALT 13 0-31 U/L LAB TBIL(LOINC) BILIRUBIN,TOTAL 0.5 0.3-1.2 mg/d L LAB EGFR(LOINC) eGFR (CKD-EPI) NON-RACE DEPENDENT 42 Low >59 ml/min/1 .73sq.m Result Comment: Reported eGFR is based on the CKD-EPI 2020 equation that does not use a race coefficient. Performed By: #### CBCA, 191 23-9, CMP #### [facility] ([id number]) [address] [place] [address] MAGNESIUM Collected: 02/26/2024 5:02 AM S tatus: COMPLETED Source: [facility] TYPE CODE TESTS RESULT OUT OF RANGE REFERENCE UNITS LAB MG(LOINC) MAGNESIUM 1.9 1.8-2.6 mg/dL Performed By: #### CBCA, 191 23-9, CMP #### [facility] ([id number]) [address] [place] [address], [place] [address] BEDSIDE GLUCOSE LAB Collected: 02/25/2024 9:17 PM Status: COMPLETED Source: [facility] TYPE CODE TESTS RESULT OUT OF RANGE REFERENCE UNITS LAB BEDG(LOINC) BEDSIDE GLUCOSE LAB 405 High Alert 65-99 mg/dL BEDSIDE GLUCOSE LAB Collected: 02/25/2024 4:02 PM Status: COMPLETED Source: [facility] TYPE CODE TESTS RESULT OUT OF RANGE REFERENCE UNITS LAB BEDG(LOINC) BEDSIDE GLUCOSE LAB 407 High Alert 65-99 mg/dL BEDSIDE GLUCOSE LAB Collected: 02/25/2024 11:56 AM Status: COMPLETED Source: [facility] TYPE CODE TESTS RESULT OUT OF RANGE REFERENCE UNITS LAB BEDG(LOINC) BEDSIDE GLUCOSE LAB 322 High 65-99 mg/dL CBC AND AUTO DIFF Collected: 02/25/2024 4:30 AM Status: COMPLETED Source: [facility] TYPE CODE TESTS RESULT OUT OF RANGE REFERENCE UNITS LAB WBC(LOINC) WBC COUNT 6.6 4.0-11.0 X10E9/L LAB RBC(LOINC) RBC COUNT 2.81 Low 3.80-5.20 X10E12/L LAB HGB(LOINC) HEMOGLOBIN 8.8 Low 11.7-15.5 g/dL LAB HCT(LOINC) HEMATOCRIT 26.3 Low 35-47 % LAB MCV(LOINC) MCV 94 80-100 fL LAB MCH(LOINC) MCH 31.2 27-34 pg LAB MCHC(LOINC) MCHC 33.3 32-36 g/dL LAB RDW(LOINC) RDW 13.5 11.5-15.0 % LAB PLTC(LOINC) PLATELET COUNT 240 150-450 X10E9 /L LAB MPV(LOINC) MPV 10.4 7-12 fL LAB NEUT(LOINC) % NEUTROPHILS 62.5 % LAB LYMP(LOINC) % LYMPHOCYTES 25.2 % LAB MONO(LOINC) % MONOCYTES 7.3 % LAB EOS(LOINC) % EOSINOPHILS 4.5 % LAB BASO(LOINC) % BASOPHILS 0.5 % LAB ANEUT(LOINC) ABSOLUTE NEUTROPHIL 4.1 1.5-6.6 X10E9/L LAB ALYMP(LOINC) ABSOLUTE LYMPHOCYTE 1.7 1.0-3.5 X10E9/L LAB AMONO(LOINC) ABSOLUTE MONOCYTE 0.5 0-0.9 X10E9/L LAB AEOS(LOINC) ABSOLUTE EOSINOPHIL 0.3 0.0-0.4 X10E9/L LAB ABASO(LOINC) ABSOLUTE BASOPHIL 0.0 0.0-0.2 X10E9/L Performed By: #### 44980-5, CBCA, CMP #### [facility] ([id number]) [address] [place] [address], [place] [address] COMPREHENSIVE METABOLIC PANEL Collected: 2023 4:30 AM Status: COMPLETED Source: [facility] TYPE CODE TESTS RESULT OUT OF RANGE REFERENCE UNITS LAB NA(LOINC) SODIUM 137 134-146 mmol/L LAB K(LOINC) POTASSIUM 4.5 3.5-5.0 mmol/L LAB CL(LOINC) CHLORIDE 107 98-109 mmol/L LAB CO2(LOINC) CARBON DIOXIDE 22 22-32 mmol/L LAB AGAP(LOINC) ANION GAP 8 5-15 mmol/L LAB BUN(LOINC) BLOOD UREA NITROGEN 39 High 5-23 mg/dL LAB CRET(LOINC) CREATININE 1.25 High 0.40-1.00 mg/dL Result Comment: METHOD TRACE ABLE TO IDMS STANDARD LAB GLU(LOINC) GLUCOSE 257 High 65-99 mg/dL LAB CA(LOINC) CALCIUM 8.4 Low 8.5-10.5 mg/dL LAB TP(LOINC) TOTAL PROTEIN 6.3 6.0-8.0 g/dL LAB ALB(LOINC) ALBUMIN 2.6 Low 3.2-5.3 g/dL LAB ALK(LOINC) ALKALINE PHOSPHATASE 39 39-130 U/L LAB AST(LOINC) AST 18 0-41 U/L LAB ALT1(LOINC) ALT 15 0-31 U/L LAB TBIL(LOINC) BILIRUBIN,TOTAL 0.4 0.3-1.2 mg/d L LAB EGFR(LOINC) eGFR (CKD-EPI) NON-RACE DEPENDENT 51 Low >59 ml/min/1 .73sq.m Result Comment: Reported eGFR is based on the CKD-EPI 2020 equation that does not use a race coefficient. Performed By: #### 93238-2, CHRISTINE, CMP #### [facility] ([id number]) [address] [place] [address] MAGNESIUM Collected: 02/25/2024 4:30 AM S tatus: COMPLETED Source: [facility] TYPE CODE TESTS RESULT OUT OF RANGE REFERENCE UNITS LAB MG(LOINC) MAGNESIUM 1.8 1.8-2.6 mg/dL Performed By: #### 08097-6, CHRISTIEN, CMP #### [facility] ([id number]) [address] [place] [address] BEDSIDE GLUCOSE LAB Collected: 02/24/2024 9:28 PM Status: COMPLETED Source: [facility] TYPE CODE TESTS RESULT OUT OF RANGE REFERENCE UNITS LAB BEDG(LOINC) BEDSIDE GLUCOSE LAB 317 High 65-99 mg/dL BEDSIDE GLUCOSE LAB Collected: 02/24/2024 5:05 PM Status: COMPLETED Source: [facility] TYPE CODE TESTS RESULT OUT OF RANGE REFERENCE UNITS LAB BEDG(LOINC) BEDSIDE GLUCOSE LAB 255 High 65-99 mg/dL TISSUE CULTURE Observed: 02/24/2024 3:53 PM Status: COMPLETED Source: [facility] GRAM STAIN 0 to 1 WHITE BLOOD CELLS/LPF 0 SQUAMOUS EPITHELIAL CELLS/LPF NO ORGANISMS SEEN CULTURE RESULTS MANY ACHROMOBACTER (ALCALIGENES) XYLOSOXIDANS SSP. XYLOSOXIDANS RARE STAPHYLOCOCCUS, COAGULASE NEGATIVE NOT S.LUGDUNENSIS [ S = SUSCEPTIBLE R = RESISTANT I = INTERMEDIATE S-DO = Susceptible-dose dependent NS = Non-suscceptible NO = No Interpretation ] Organism: ACHROMOBACTER (ALCALIGENES) XYLOSOXIDANS SSP. XYLOSOXIDANS Antibiotic Interpretation POONAM Status CEFEPIME I 16 F CEFTAZIDIME S 4 F CIPROFLOXACIN R >=4 F GENTAMICIN I 8 F IMIPENEM S 1 F LEVOFLOXACIN R >=8 F MEROPENEM S <=0.25 F PIPERACIL/TAZOBACTAM S <=4 F TOBRAMYCIN I 8 F Performed By: #### 627-0 ### # [facility] ([id number]) [address] [place] [address] BEDSIDE GLUCOSE LAB Collected: 02/24/2024 11:59 AM Status: COMPLETED Source: [facility] TYPE CODE TESTS RESULT OUT OF RANGE REFERENCE UNITS LAB BEDG(LOINC) BEDSIDE GLUCOSE LAB 294 High 65-99 mg/dL BEDSIDE GLUCOSE LAB Collected: 02/24/2024 7:38 AM Status: COMPLETED Source: [facility] TYPE CODE TESTS RESULT OUT OF RANGE REFERENCE UNITS LAB BEDG(LOINC) BEDSIDE GLUCOSE LAB 342 High 65-99 mg/dL COMPREHENSIVE METABOLIC PANEL Collected: 2023 4:31 AM Status: COMPLETED Source: [facility] TYPE CODE TESTS RESULT OUT OF RANGE REFERENCE UNITS LAB NA(LOINC) SODIUM 133 Low 134-146 mmol/L LAB K(LOINC) POTASSIUM 4.7 3.5-5.0 mmol/L LAB CL(LOINC) CHLORIDE 102 98-109 mmol/L LAB CO2(LOINC) CARBON DIOXIDE 21 Low 22-32 mmol/L LAB AGAP(LOINC) ANION GAP 10 5-15 mmol/L LAB BUN(LOINC) BLOOD UREA NITROGEN 45 High 5-23 mg/dL LAB CRET(LOINC) CREATININE 1.36 High 0.40-1.00 mg/dL Result Comment: METHOD TRACE ABLE TO IDMS STANDARD LAB GLU(LOINC) GLUCOSE 357 High 65-99 mg/dL LAB CA(LOINC) CALCIUM 8.4 Low 8.5-10.5 mg/dL LAB TP(LOINC) TOTAL PROTEIN 6.5 6.0-8.0 g/dL LAB ALB(LOINC) ALBUMIN 2.6 Low 3.2-5.3 g/dL LAB ALK(LOINC) ALKALINE PHOSPHATASE 38 Low 39-130 U/L LAB AST(LOINC) AST 16 0-41 U/L LAB ALT1(LOINC) ALT 14 0-31 U/L LAB TBIL(LOINC) BILIRUBIN,TOTAL 0.5 0.3-1.2 mg/d L LAB EGFR(LOINC) eGFR (CKD-EPI) NON-RACE DEPENDENT 46 Low >59 ml/min/1 .73sq.m Result Comment: Reported eGFR is based on the CKD-EPI 2020 equation that does not use a race coefficient. Performed By: #### ADOLFO, 1911 3-, CBCA #### [facility] ([id number]) [address] [place] [address], [place] [address] CBC AND AUTO DIFF Collected: 02/24/2024 4:31 AM Status: COMPLETED Source: [facility] TYPE CODE TESTS RESULT OUT OF RANGE REFERENCE UNITS LAB WBC(LOINC) WBC COUNT 6.4 4.0-11.0 X10E9/L LAB RBC(LOINC) RBC COUNT 2.82 Low 3.80-5.20 X10E12/L LAB HGB(LOINC) HEMOGLOBIN 8.8 Low 11.7-15.5 g/dL LAB HCT(LOINC) HEMATOCRIT 26.4 Low 35-47 % LAB MCV(LOINC) MCV 94 80-100 fL LAB MCH(LOINC) MCH 31.2 27-34 pg LAB MCHC(LOINC) MCHC 33.3 32-36 g/dL LAB RDW(LOINC) RDW 13.5 11.5-15.0 % LAB PLTC(LOINC) PLATELET COUNT 224 150-450 X10E9 /L LAB MPV(LOINC) MPV 10.4 7-12 fL LAB NEUT(LOINC) % NEUTROPHILS 56.7 % LAB LYMP(LOINC) % LYMPHOCYTES 29.2 % LAB MONO(LOINC) % MONOCYTES 8.7 % LAB EOS(LOINC) % EOSINOPHILS 4.5 % LAB BASO(LOINC) % BASOPHILS 0.9 % LAB ANEUT(LOINC) ABSOLUTE NEUTROPHIL 3.7 1.5-6.6 X10E9/L LAB ALYMP(LOINC) ABSOLUTE LYMPHOCYTE 1.9 1.0-3.5 X10E9/L LAB AMONO(LOINC) ABSOLUTE MONOCYTE 0.6 0-0.9 X10E9/L LAB AEOS(LOINC) ABSOLUTE EOSINOPHIL 0.3 0.0-0.4 X10E9/L LAB ABASO(LOINC) ABSOLUTE BASOPHIL 0.1 0.0-0.2 X10E9/L Performed By: #### ADOLFO, 1914 3-9, CBCA #### [facility] ([id number]) [address] [place] [id number] MAGNESIUM Collected: 02/24/2024 4:31 AM S tatus: COMPLETED Source: [facility] TYPE CODE TESTS RESULT OUT OF RANGE REFERENCE UNITS LAB MG(LOINC) MAGNESIUM 1.9 1.8-2.6 mg/dL Performed By: #### CMP, 1912 3-9, CBCA #### [facility] ([id number]) [address] [place] [id number] BEDSIDE GLUCOSE LAB Collected: 02/23/2024 9:03 PM Status: COMPLETED Source: [facility] TYPE CODE TESTS RESULT OUT OF RANGE REFERENCE UNITS LAB BEDG(LOINC) BEDSIDE GLUCOSE LAB 378 High 65-99 mg/dL VANCOMYCIN TROUGH Collected: 02/23/2024 8:39 PM Status: COMPLETED Source: [facility] TYPE CODE TESTS RESULT OUT OF RANGE REFERENCE UNITS LAB VANCTR(LOINC) VANCOMYCIN TROUGH 6.8 5.0-20.0 ug/mL Performed By: #### [id number] ## ## [facility] ([id number]) [address] [place] [id number] BEDSIDE GLUCOSE LAB Collected: 02/23/2024 4:13 PM Status: COMPLETED Source: [facility] TYPE CODE TESTS RESULT OUT OF RANGE REFERENCE UNITS LAB BEDG(LOINC) BEDSIDE GLUCOSE LAB 436 High Alert 65-99 mg/dL BEDSIDE GLUCOSE LAB Collected: 02/23/2024 11:20 AM Status: COMPLETED Source: [facility] TYPE CODE TESTS RESULT OUT OF RANGE REFERENCE UNITS LAB BEDG(LOINC) BEDSIDE GLUCOSE LAB 346 High 65-99 mg/dL CBC AND AUTO DIFF Collected: 02/23/2024 4:27 AM Status: COMPLETED Source: [facility] TYPE CODE TESTS RESULT OUT OF RANGE REFERENCE UNITS LAB WBC(LOINC) WBC COUNT 6.4 4.0-11.0 X10E9/L LAB RBC(LOINC) RBC COUNT 2.83 Low 3.80-5.20 X10E12/L LAB HGB(LOINC) HEMOGLOBIN 8.8 Low 11.7-15.5 g/dL LAB HCT(LOINC) HEMATOCRIT 26.5 Low 35-47 % LAB MCV(LOINC) MCV 94 80-100 fL LAB MCH(LOINC) MCH 31.1 27-34 pg LAB MCHC(LOINC) MCHC 33.3 32-36 g/dL LAB RDW(LOINC) RDW 13.4 11.5-15.0 % LAB PLTC(LOINC) PLATELET COUNT 222 150-450 X10E9 /L LAB MPV(LOINC) MPV 10.1 7-12 fL LAB NEUT(LOINC) % NEUTROPHILS 54.3 % LAB LYMP(LOINC) % LYMPHOCYTES 31.6 % LAB MONO(LOINC) % MONOCYTES 9.5 % LAB EOS(LOINC) % EOSINOPHILS 3.8 % LAB BASO(LOINC) % BASOPHILS 0.8 % LAB ANEUT(LOINC) ABSOLUTE NEUTROPHIL 3.5 1.5-6.6 X10E9/L LAB ALYMP(LOINC) ABSOLUTE LYMPHOCYTE 2.0 1.0-3.5 X10E9/L LAB AMONO(LOINC) ABSOLUTE MONOCYTE 0.6 0-0.9 X10E9/L LAB AEOS(LOINC) ABSOLUTE EOSINOPHIL 0.2 0.0-0.4 X10E9/L LAB ABASO(LOINC) ABSOLUTE BASOPHIL 0.1 0.0-0.2 X10E9/L Performed By: #### CMP, 1912 3-9, CBCA #### [facility] ([id number]) [address] [place] [address], [place] [address] COMPREHENSIVE METABOLIC PANEL Collected: 2023 4:27 AM Status: COMPLETED Source: [facility] TYPE CODE TESTS RESULT OUT OF RANGE REFERENCE UNITS LAB NA(LOINC) SODIUM 135 134-146 mmol/L LAB K(LOINC) POTASSIUM 4.5 3.5-5.0 mmol/L LAB CL(LOINC) CHLORIDE 104 98-109 mmol/L LAB CO2(LOINC) CARBON DIOXIDE 23 22-32 mmol/L LAB AGAP(LOINC) ANION GAP 8 5-15 mmol/L LAB BUN(LOINC) BLOOD UREA NITROGEN 39 High 5-23 mg/dL LAB CRET(LOINC) CREATININE 1.48 High 0.40-1.00 mg/dL Result Comment: METHOD TRACE ABLE TO IDMS STANDARD LAB GLU(LOINC) GLUCOSE 252 High 65-99 mg/dL LAB CA(LOINC) CALCIUM 8.4 Low 8.5-10.5 mg/dL LAB TP(LOINC) TOTAL PROTEIN 6.5 6.0-8.0 g/dL LAB ALB(LOINC) ALBUMIN 2.5 Low 3.2-5.3 g/dL LAB ALK(LOINC) ALKALINE PHOSPHATASE 36 Low 39-130 U/L LAB AST(LOINC) AST 15 0-41 U/L LAB ALT1(LOINC) ALT 15 0-31 U/L LAB TBIL(LOINC) BILIRUBIN,TOTAL 0.6 0.3-1.2 mg/d L LAB EGFR(LOINC) eGFR (CKD-EPI) NON-RACE DEPENDENT 42 Low >59 ml/min/1 .73sq.m Result Comment: Reported eGFR is based on the CKD-EPI 2020 equation that does not use a race coefficient. Performed By: #### ADOLFO, 191 3-9, CBCA #### [facility] ([id number]) [address] [place] [address] MAGNESIUM Collected: 02/23/2024 4:27 AM S tatus: COMPLETED Source: [facility] TYPE CODE TESTS RESULT OUT OF RANGE REFERENCE UNITS LAB MG(INC) MAGNESIUM 2.1 1.8-2.6 mg/dL Performed By: #### ADOLFO, 1911 3-9, CBCA #### [facility] ([id number]) [address] [place] [address] BEDSIDE GLUCOSE LAB Collected: 02/22/2024 10:17 PM Status: COMPLETED Source: [facility] TYPE CODE TESTS RESULT OUT OF RANGE REFERENCE UNITS LAB BEDG(LOINC) BEDSIDE GLUCOSE LAB 416 High Alert 65-99 mg/dL BEDSIDE GLUCOSE LAB Collected: 02/22/2024 3:54 PM Status: COMPLETED Source: [facility] TYPE CODE TESTS RESULT OUT OF RANGE REFERENCE UNITS LAB BEDG([facility]) BEDSIDE GLUCOSE LAB 423 High Alert 65-99 mg/dL BEDSIDE GLUCOSE LAB Collected: 02/22/2024 12:14 PM Status: COMPLETED Source: [facility] TYPE CODE TESTS RESULT OUT OF RANGE REFERENCE UNITS LAB BEDG(LOINC) BEDSIDE GLUCOSE LAB 280 High 65-99 mg/dL COMPREHENSIVE METABOLIC PANEL Collected: 2023 4:21 AM Status: COMPLETED Source: [facility] TYPE CODE TESTS RESULT OUT OF RANGE REFERENCE UNITS LAB NA(LOINC) SODIUM 138 134-146 mmol/L LAB K(LOINC) POTASSIUM 4.3 3.5-5.0 mmol/L LAB CL(LOINC) CHLORIDE 108 98-109 mmol/L LAB CO2(LOINC) CARBON DIOXIDE 21 Low 22-32 mmol/L LAB AGAP(LOINC) ANION GAP 9 5-15 mmol/L LAB BUN(LOINC) BLOOD UREA NITROGEN 38 High 5-23 mg/dL LAB CRET(LOINC) CREATININE 1.47 High 0.40-1.00 mg/dL Result Comment: METHOD TRACE ABLE TO IDMS STANDARD LAB GLU(LOINC) GLUCOSE 105 High 65-99 mg/dL LAB CA(LOINC) CALCIUM 8.5 8.5-10.5 mg/dL LAB TP(LOINC) TOTAL PROTEIN 6.5 6.0-8.0 g/dL LAB ALB(LOINC) ALBUMIN 2.6 Low 3.2-5.3 g/dL LAB ALK(LOINC) ALKALINE PHOSPHATASE 37 Low 39-130 U/L LAB AST(LOINC) AST 23 0-41 U/L LAB ALT1(LOINC) ALT 16 0-31 U/L LAB TBIL(LOINC) BILIRUBIN,TOTAL 0.6 0.3-1.2 mg/d L LAB EGFR(LOINC) eGFR (CKD-EPI) NON-RACE DEPENDENT 42 Low >59 ml/min/1 .73sq.m Result Comment: Reported eGFR is based on the CKD-EPI 2020 equation that does not use a race coefficient. Performed By: #### 28101-9, CBCA, CMP #### [facility] ([id number]) [address] [place] [address], [place] [address] MAGNESIUM Collected: 02/22/2024 4:21 AM S tatus: COMPLETED Source: [facility] TYPE CODE TESTS RESULT OUT OF RANGE REFERENCE UNITS LAB MG(LOINC) MAGNESIUM 2.1 1.8-2.6 mg/dL Performed By: #### 46743-1, CBCA, CMP #### [facility] ([id number]) [address] [place] [address], [place] [address] CBC AND AUTO DIFF Collected: 02/22/2024 4:21 AM Status: COMPLETED Source: [facility] TYPE CODE TESTS RESULT OUT OF RANGE REFERENCE UNITS LAB WBC(LOINC) WBC COUNT 7.9 4.0-11.0 X10E9/L LAB RBC(LOINC) RBC COUNT 2.94 Low 3.80-5.20 X10E12/L LAB HGB(LOINC) HEMOGLOBIN 9.2 Low 11.7-15.5 g/dL LAB HCT(LOINC) HEMATOCRIT 27.6 Low 35-47 % LAB MCV(LOINC) MCV 94 80-100 fL LAB MCH(LOINC) MCH 31.2 27-34 pg LAB MCHC(LOINC) MCHC 33.3 32-36 g/dL LAB RDW(LOINC) RDW 13.8 11.5-15.0 % LAB PLTC(LOINC) PLATELET COUNT 253 150-450 X10E9 /L LAB MPV(LOINC) MPV 10.3 7-12 fL LAB NEUT(LOINC) % NEUTROPHILS 60.2 % LAB LYMP(LOINC) % LYMPHOCYTES 26.7 % LAB MONO(LOINC) % MONOCYTES 9.2 % LAB EOS(LOINC) % EOSINOPHILS 3.4 % LAB BASO(LOINC) % BASOPHILS 0.5 % LAB ANEUT(LOINC) ABSOLUTE NEUTROPHIL 4.7 1.5-6.6 X10E9/L LAB ALYMP(LOINC) ABSOLUTE LYMPHOCYTE 2.1 1.0-3.5 X10E9/L LAB AMONO(LOINC) ABSOLUTE MONOCYTE 0.7 0-0.9 X10E9/L LAB AEOS(LOINC) ABSOLUTE EOSINOPHIL 0.3 0.0-0.4 X10E9/L LAB ABASO(LOINC) ABSOLUTE BASOPHIL 0.0 0.0-0.2 X10E9/L Performed By: #### 98908-2, CBCA, CMP #### [facility] ([id number]) [address] [place] [address] BEDSIDE GLUCOSE LAB Collected: 02/21/2024 8:44 PM Status: COMPLETED Source: [facility] TYPE CODE TESTS RESULT OUT OF RANGE REFERENCE UNITS LAB BEDG(LOINC) BEDSIDE GLUCOSE LAB 216 High 65-99 mg/dL BEDSIDE GLUCOSE LAB Collected: 02/21/2024 5:12 PM Status: COMPLETED Source: [facility] TYPE CODE TESTS RESULT OUT OF RANGE REFERENCE UNITS LAB BEDG(INC) BEDSIDE GLUCOSE LAB 189 High 65-99 mg/dL THYROID PROFILE Collected: 02/21/2024 2:14 PM Status: COMPLETED Source: [facility] TYPE CODE TESTS RESULT OUT OF RANGE REFERENCE UNITS LAB TSH(INC) TSH 3.61 0.49-4.67 uIU/mL LAB FT4([facility]) FREE T4 1.11 0.61-1.60 ng/dL Performed By: #### THYR #### [facility] ([id number]) [address] [place] [address] BEDSIDE GLUCOSE LAB Collected: 02/21/2024 11:45 AM Status: COMPLETED Source: [facility] TYPE CODE TESTS RESULT OUT OF RANGE REFERENCE UNITS LAB BEDG([facility]) BEDSIDE GLUCOSE LAB 145 High 65-99 mg/dL COMPREHENSIVE METABOLIC PANEL Collected: 2023 4:38 AM Status: COMPLETED Source: [facility] TYPE CODE TESTS RESULT OUT OF RANGE REFERENCE UNITS LAB NA(LOINC) SODIUM 140 134-146 mmol/L LAB K(LOINC) POTASSIUM 4.2 3.5-5.0 mmol/L LAB CL(LOINC) CHLORIDE 107 98-109 mmol/L LAB CO2(LOINC) CARBON DIOXIDE 23 22-32 mmol/L LAB AGAP(LOINC) ANION GAP 10 5-15 mmol/L LAB BUN(LOINC) BLOOD UREA NITROGEN 45 High 5-23 mg/dL LAB CRET(LOINC) CREATININE 1.68 High 0.40-1.00 mg/dL Result Comment: METHOD TRACE ABLE TO IDMS STANDARD LAB GLU(LOINC) GLUCOSE 142 High 65-99 mg/dL LAB CA(LOINC) CALCIUM 8.4 Low 8.5-10.5 mg/dL LAB TP(LOINC) TOTAL PROTEIN 6.5 6.0-8.0 g/dL LAB ALB(LOINC) ALBUMIN 2.7 Low 3.2-5.3 g/dL LAB ALK(LOINC) ALKALINE PHOSPHATASE 35 Low 39-130 U/L LAB AST(LOINC) AST 23 0-41 U/L LAB ALT1(LOINC) ALT 17 0-31 U/L LAB TBIL(LOINC) BILIRUBIN,TOTAL 0.7 0.3-1.2 mg/d L LAB EGFR(LOINC) eGFR (CKD-EPI) NON-RACE DEPENDENT 36 Low >59 ml/min/1 .73sq.m Result Comment: Reported eGFR is based on the CKD-EPI 2020 equation that does not use a race coefficient. Performed By: #### RENATA, 227 6-4, 2132-02, HA1C, 2284-01 #### [facility] ([id number]) [address] [place] [address], [place] [address] #### CMP, 33109-4, CBCA #### [facility] ([id number]) [address] [place] [address] MAGNESIUM Collected: 02/21/2024 4:38 AM S tatus: COMPLETED Source: [facility] TYPE CODE TESTS RESULT OUT OF RANGE REFERENCE UNITS LAB MG(LOINC) MAGNESIUM 2.3 1.8-2.6 mg/dL Performed By: #### FEPR, 227 6-4, 2132-02, HA1C, 2284-01 #### [facility] ([id number]) [address] [place] [address], [address] [place] [address] #### CMP, 07832-7, CBCA #### [facility] ([id number]) [address] [place] [address] CBC AND AUTO DIFF Collected: 02/21/2024 4:38 AM Status: COMPLETED Source: [facility] TYPE CODE TESTS RESULT OUT OF RANGE REFERENCE UNITS LAB WBC(LOINC) WBC COUNT 7.0 4.0-11.0 X10E9/L LAB RBC(LOINC) RBC COUNT 3.00 Low 3.80-5.20 X10E12/L LAB HGB(LOINC) HEMOGLOBIN 9.4 Low 11.7-15.5 g/dL LAB HCT(LOINC) HEMATOCRIT 28.4 Low 35-47 % LAB MCV(LOINC) MCV 95 80-100 fL LAB MCH(LOINC) MCH 31.2 27-34 pg LAB MCHC(LOINC) MCHC 32.9 32-36 g/dL LAB RDW(LOINC) RDW 14.0 11.5-15.0 % LAB PLTC(LOINC) PLATELET COUNT 247 150-450 X10E9 /L LAB MPV(LOINC) MPV 9.9 7-12 fL LAB NEUT(LOINC) % NEUTROPHILS 57.0 % LAB LYMP(LOINC) % LYMPHOCYTES 28.7 % LAB MONO(LOINC) % MONOCYTES 10.8 % LAB EOS(LOINC) % EOSINOPHILS 3.0 % LAB BASO(LOINC) % BASOPHILS 0.5 % LAB ANEUT(LOINC) ABSOLUTE NEUTROPHIL 4.0 1.5-6.6 X10E9/L LAB ALYMP(LOINC) ABSOLUTE LYMPHOCYTE 2.0 1.0-3.5 X10E9/L LAB AMONO(LOINC) ABSOLUTE MONOCYTE 0.8 0-0.9 X10E9/L LAB AEOS(LOINC) ABSOLUTE EOSINOPHIL 0.2 0.0-0.4 X10E9/L LAB ABASO(LOINC) ABSOLUTE BASOPHIL 0.0 0.0-0.2 X10E9/L Performed By: #### FEPR, 227 6-4, 2132-9, HA1C, 2284-8 #### [facility] ([id number]) [address] [place] [address], [address] [place] [address] #### CMP, 61191-7, CBCA #### [facility] ([id number]) [address] [place] [address], [place] [address] HGB A1C (GLYCO-HGB) Collected: 02/21/2024 4:38 AM Status: COMPLETED Source: [facility] TYPE CODE TESTS RESULT OUT OF RANGE REFERENCE UNITS LAB HBA1C(LOINC) HEMOGLOBIN A1C 9.6 High 4.4-5.6 % Result Comment: NOTE ADA Guidelines Result HgbA1c Normal : less than 5.7 % Prediabetes : 5.7 % to 6.4 % Diabetes : > 6.4 % Use with caution in patients with abnormal hemoglobin variants as the half-life of red blood cells and in vivo glycation rates are affected. LAB EAG(LOINC) AVERAGE GLUCOSE 229 mg/dL Performed By: #### FEPR, 227 6-4, 2132-02, HA1C, 2284-01 #### [facility] ([id number]) [address] [place] [address], [place] [address] #### CMP, 18106-8, CBCA #### [facility] ([id number]) [address] [place] [address] IRON PROFILE Collected: 4:38 AM Status: COMPLETED Source: [facility] TYPE CODE TESTS RESULT OUT OF RANGE REFERENCE UNITS LAB FE(LOINC) IRON <10 Low 50-170 ug/dL LAB TIBC(LOINC) IRON BINDING 307 250-425 ug/dL LAB SAT(LOINC) IRON SATURATION <3 Low 15-50 % SATURATION Performed By: #### FEPR, 227 6-, 2132-02, HA1C, 2284-01 #### [facility] ([id number]) [address] [place] [address], [address] [address] #### CMP, 05481-8, CBCA #### [facility] ([id number]) [address] [place] [address] FERRITIN Collected: 02/21/2024 4:38 AM S tatus: COMPLETED Source: [facility] TYPE CODE TESTS RESULT OUT OF RANGE REFERENCE UNITS LAB FERR(LOINC) FERRITIN 568 High 11-307 ng/mL Performed By: #### FEPR, 227 6-4, 2132-02, HA1C, 2284-8 #### [facility] ([id number]) [address] [place] [address], [address] [place] [address] #### CMP, 02580-8, CBCA #### [facility] ([id number]) [address] [place] [address] FOLIC ACID Collected: 02/21/2024 4:38 AM S tatus: COMPLETED Source: [facility] TYPE CODE TESTS RESULT OUT OF RANGE REFERENCE UNITS LAB FOLI(LOINC) FOLIC ACID >25.0 >5.8 ng/mL Result Comment: NEW REFERENC E RANGE Performed By: #### FEPR, 227 6-4, 2132-02, HA1C, 2284-01 #### [facility] ([id number]) [address] [place] [address], [address] [place] [address] #### CMP, 75217-9, CBCA #### [facility] ([id number]) [address] [place] [address] VITAMIN B12 Collected: 02/21/2024 4:38 AM S tatus: COMPLETED Source: [facility] TYPE CODE TESTS RESULT OUT OF RANGE REFERENCE UNITS LAB B12(LOINC) VITAMIN B12 312 180-914 pg/mL Performed By: #### FEPR, 227 6-4, 2132-02, HA1C, 2284-01 #### [facility] ([id number]) [address] [place] [address], [facility] [address] [place] [address] #### CMP, 97360-1, CBCA #### [facility] ([id number]) [address] [place] [address] BEDSIDE GLUCOSE LAB Collected: 02/20/2024 9:51 PM Status: COMPLETED Source: [facility] TYPE CODE TESTS RESULT OUT OF RANGE REFERENCE UNITS LAB BEDG(LOINC) BEDSIDE GLUCOSE LAB 116 High 65-99 mg/dL BLOOD CULTURE Observed: 02/20/2024 7:18 PM Status: COMPLETED Source: [facility] CULTURE RESULTS NO GROWTH 5 DAYS BLOOD CULTURE Observed: 02/20/2024 7:10 PM Status: COMPLETED Source: [facility] CULTURE RESULTS NO GROWTH 5 DAYS SUPERFICIAL WOUND CULTURE Observed: 02/01 5:10 PM Status: COMPLETED Source: [facility] SPECIMEN NOTES SPECIMEN 2 GRAM STAIN >25 WHITE BLOOD CELLS/LPF 0 to 1 SQUAMOUS EPITHELIAL CELLS/LPF MODERATE GRAM POSITIVE COCCI FEW GRAM NEGATIVE RODS RARE YEAST CULTURE RESULTS MANY ACHROMOBACTER SPECIES ALONG WITH MANY NORMAL SKIN ERIC [ S = SUSCEPTIBLE R = RESISTANT I = INTERMEDIATE S-DO = Susceptible-dose dependent NS = Non-suscceptible NO = No Interpretation ] Organism: ACHROMOBACTER SPECIES Antibiotic Interpretation POONAM Status AMIKACIN R >=64 F CEFEPIME R 32 F CEFTAZIDIME S 4 F CIPROFLOXACIN R >=4 F GENTAMICIN R >=16 F IMIPENEM S 1 F LEVOFLOXACIN R >=8 F MEROPENEM S 1 F PIPERACIL/TAZOBACTAM S <=4 F TOBRAMYCIN I 8 F Performed By: #### 632-0 ### # [facility] ([id number]) [address] [place] [address], [address] [place] [address] CBC AND AUTO DIFF Collected: 02/20/2024 3:52 PM Status: COMPLETED Source: [facility] TYPE CODE TESTS RESULT OUT OF RANGE REFERENCE UNITS LAB WBC(LOINC) WBC COUNT 8.8 4.0-11.0 X10E9/L LAB RBC(LOINC) RBC COUNT 3.79 Low 3.80-5.20 X10E12/L LAB HGB(LOINC) HEMOGLOBIN 11.9 11.7-15.5 g/dL LAB HCT(LOINC) HEMATOCRIT 35.8 35-47 % LAB MCV(LOINC) MCV 94 80-100 fL LAB MCH(LOINC) MCH 31.4 27-34 pg LAB MCHC(LOINC) MCHC 33.2 32-36 g/dL LAB RDW(LOINC) RDW 14.2 11.5-15.0 % LAB PLTC(LOINC) PLATELET COUNT 328 150-450 X10E9 /L LAB MPV(LOINC) MPV 10.2 7-12 fL LAB NEUT(LOINC) % NEUTROPHILS 69.8 % LAB LYMP(LOINC) % LYMPHOCYTES 19.0 % LAB MONO(LOINC) % MONOCYTES 8.5 % LAB EOS(LOINC) % EOSINOPHILS 2.1 % LAB BASO(LOINC) % BASOPHILS 0.6 % LAB ANEUT(LOINC) ABSOLUTE NEUTROPHIL 6.2 1.5-6.6 X10E9/L LAB ALYMP(LOINC) ABSOLUTE LYMPHOCYTE 1.7 1.0-3.5 X10E9/L LAB AMONO(LOINC) ABSOLUTE MONOCYTE 0.8 0-0.9 X10E9/L LAB AEOS(LOINC) ABSOLUTE EOSINOPHIL 0.2 0.0-0.4 X10E9/L LAB ABASO(LOINC) ABSOLUTE BASOPHIL 0.1 0.0-0.2 X10E9/L Performed By: #### 1988-5, C MP, CBCA, 66957-0, 24301-8 #### [facility] ([id number]) [address] [place] [address], [place] [address] COMPREHENSIVE METABOLIC PANEL Collected: 2023 3:52 PM Status: COMPLETED Source: [facility] TYPE CODE TESTS RESULT OUT OF RANGE REFERENCE UNITS LAB NA(LOINC) SODIUM 139 134-146 mmol/L LAB K(LOINC) POTASSIUM 4.3 3.5-5.0 mmol/L LAB CL(LOINC) CHLORIDE 105 98-109 mmol/L LAB CO2(LOINC) CARBON DIOXIDE 24 22-32 mmol/L LAB AGAP(LOINC) ANION GAP 10 5-15 mmol/L LAB BUN(LOINC) BLOOD UREA NITROGEN 50 High 5-23 mg/dL LAB CRET(LOINC) CREATININE 1.86 High 0.40-1.00 mg/dL Result Comment: METHOD TRACE ABLE TO IDMS STANDARD LAB GLU(LOINC) GLUCOSE 134 High 65-99 mg/dL LAB CA(LOINC) CALCIUM 9.5 8.5-10.5 mg/dL LAB TP(LOINC) TOTAL PROTEIN 8.4 High 6.0-8.0 g/dL LAB ALB(LOINC) ALBUMIN 3.6 3.2-5.3 g/dL LAB ALK(LOINC) ALKALINE PHOSPHATASE 48 39-130 U/L LAB AST(LOINC) AST 32 0-41 U/L LAB ALT1(LOINC) ALT 21 0-31 U/L LAB TBIL(LOINC) BILIRUBIN,TOTAL 0.5 0.3-1.2 mg/d L LAB EGFR(LOINC) eGFR (CKD-EPI) NON-RACE DEPENDENT 32 Low >59 ml/min/1 .73sq.m Result Comment: Reported eGFR is based on the CKD-EPI 2020 equation that does not use a race coefficient. Performed By: #### 1987-, Leo MP, CBCA, 87301-0, 26528-6 #### [facility] ([id number]) [address] [place] [address] C REACTIVE PROTEIN Collected: 02/20/2024 3:52 P M Status: COMPLETED Source: [facility] TYPE CODE TESTS RESULT OUT OF RANGE REFERENCE UNITS LAB CRP(LOINC) C REACTIVE PROTEIN 10.2 High 0.000-0.744 mg/dL Performed By: #### 1987-, Leo MP, CBCA, 67420-7, 86400-6 #### [facility] ([id number]) [address] [place] [address] MAGNESIUM Collected: 02/20/2024 3:52 PM S tatus: COMPLETED Source: [facility] TYPE CODE TESTS RESULT OUT OF RANGE REFERENCE UNITS LAB MG(LOINC) MAGNESIUM 2.3 1.8-2.6 mg/dL Performed By: #### 1987-, Leo MP, CBCA, 76229-5, 27640-3 #### [facility] ([id number]) [address] [place] [address] BRN NATRIURETIC PEP Collected: 02/20/2024 3:52 PM Status: COMPLETED Source: [facility] TYPE CODE TESTS RESULT OUT OF RANGE REFERENCE UNITS LAB BNP(LOINC) BRN NATRIURETIC PEP 41 <100.0 pg/mL Performed By: #### 1987-, C MP, CBCA, 00583-8, 49252-0 #### [facility] ([id number]) [address] [place] [address] LACTATE W/REFLEX Collected: 02/20/2024 3:52 PM Status: COMPLETED Source: [facility] TYPE CODE TESTS RESULT OUT OF RANGE REFERENCE UNITS LAB LACTS(LOINC) LACTATE W/REFLEX 1.2 0.4-2.0 mmol/L Result Comment: Result did not trigger repeat Lactate, re-order if needed. Performed By: #### 38332-1 # ### [facility] ([id number]) [address] [place] [address], [place] [address] SUPERFICIAL WOUND CULTURE Observed: 02/01 3:07 PM Status: COMPLETED Source: [facility] SPECIMEN NOTES SPECIMEN 1 GRAM STAIN 10 to 24 WHITE BLOOD CELLS/LPF 0 to 1 SQUAMOUS EPITHELIAL CELLS/LPF FEW GRAM POSITIVE COCCI RARE GRAM NEGATIVE RODS CULTURE RESULTS MANY MIXED GRAM POSITIVE AND GRAM NEGATIVE ORGANISMS NO STAPHYLOCOCCUS AUREUS ISOLATED NO PSEUDOMONAS AERUGINOSA ISOLATED NO BETA HEMOLYTIC STREPTOCOCCI ISOLATED Performed By: #### 632-0 ### # [facility] ([id number]) [address] [place] [address], [address] [place] [address] SUPERFICIAL WOUND CULTURE Observed: 01/30/2024 2:36 PM Status: COMPLETED Source: [facility] GRAM STAIN 1 to 9 WHITE BLOOD CELLS/LPF 0 SQUAMOUS EPITHELIAL CELLS/LPF MANY GRAM POSITIVE COCCI IN CLUSTERS CULTURE RESULTS RARE LADY PARAPSILOSIS : CLINICAL CORRELATION RECOMMENDED. MAY REPRESENT COMMENSAL ERIC. ALONG WITH MANY NORMAL SKIN ERIC Performed By: #### 632-0 ### # [facility] ([id number]) [address] [place] [address], [address] [place] [address] OFFICE VISIT Observed: 12/18/2023 1:45 PM Status: COMPLETED Source: [facility] [id number] [facility],Authumn D 1970 F Date Provider Department Center 12/18/2023 Leyda-REBECA VALADEZ Family History Problem Relation Age of Onset Angina Mother Heart attack Mother Heart attack Maternal Grandfather Family Status - Relation Status Age at Mother Maternal Grandfather Level of Service:76209 SD OFFICE/OUTPATIENT ESTABLISHED MOD MDM 30 MIN PROGRESS Observed: 12/18/2023 1:45 PM Status: COMPLETED Source: [facility] Card[facility] Clinic Note Chief Complaint: wants to know what is going on with her health, and how to go about it from here. HPI: Mary Jane Schaeffer is a 53 [...] history of Abnormal ECG, Asthma, Diabetes mellitus ([facility]/HCC), and Hyperlipidemia. Surgical History She has a [...] SpO2 99% BMI 49.25 kg/m??? Physical Examination: GENERAL: alert and oriented [...] Dr. Andrew already scheduled 5. Follow-up with [facility] cardiology on an as-needed basis MARY JANE SCHAEFFER Age/Sex/Date of : 53, F - 1970 Created on: 10/31/2023 16:24 EDT TSH Collected Result Units Reference 06/17/23 15:06 3.330 uIU/mL 0.358-3.740 Thyroxine (T4) Collected Result Units Reference 06/17/23 15:06 11.20 ug/dL 4.80-13.90 Free T3 Collected Result Units Reference 06/17/23 15:06 2.05 L pg/mL 2.18-3.98 Echocardiogram 12/08/2023: Global left ventricular systolic function is difficult to assess but appears preserved; visually estimated ejection fraction is 55 to 60% Normal right ventricular size and systolic function Diastolic function is indeterminate No significant valvular abnormalities Anterior free space; trivial effusion versus fat pad Lexiscan stress test 11/20/2023: No ischemic EKG changes No reversible ischemia on nuclear images Event monitor; sinus rhythm, heart rate between 59 to 127 bpm. Infrequent SVT. During patient reported symptoms strip showed sinus rhythm and short runs of PSVT. Labs 11/24/2023: Serum creatinine is elevated at 1.24 AST is minimally elevated at 38 Triglycerides 229, cholesterol 192, HDL 37, LDL 110 Assessment: Mild CAD (Cath 2020) Syncope - Chest pain - atypical Paroxysmal supraventricular tachycardia Morbid obesity Essential hypertension - Uncontrolled Obstructive sleep apnea syndrome Diabetes mellitus Type 2 Dyspnea on exertion Low free T3 Elevated s.cr 1.25; repeat 1.24 on PAULETTE-I Plan: Continue optimal medical therapy for coronary artery disease including Plavix (she cannot tolerate aspirin- it causes emesis), high intensity statin therapy or a PCSK9 inhibitor, a beta-ayala and a RAAS inhibitor given her diabetes mellitus. Given diabetes and coronary disease, she is appropriately on a GLP-1 receptor agonistIn the form of Trulicity. She could not tolerate an SGLT2 inhibitor - Farxiga led to REBEL She could not tolerate Lipitor; she is willing to try Crestor. Will start Crestor 20 mg a day and uptitrate as tolerated Will check a fasting lipid profile and liver function test in 2 months If she does not tolerate Crestor and or her LDL does not decrease to target, she will need a PCSK9 inhibitor in the form of Repatha or Praluent given her statin intolerance and elevated LDL We will increase her metoprolol to tartrate to 75 mg p.o. twice daily in an attempt to improve her symptoms of palpitations Will consider referral to EP for possible EP study plus or minus ablation should her symptoms persist or worsen Treat noncardiac comorbidities as clinically appropriate RTC in 6 months or sooner should problems arise Rebeca Valadez MD, MPH, [facility], [facility], [facility] Interventional Cardiology Pager Email: [email or web address] Observed: 11/26/2023 8:30 AM Status: COMPLETED Source: [facility] Rx sent to patient's pharmac y per her request. 36 Observed: 11/24/2023 3:28 PM Status: COMPLETED Source: [facility] Patient called back and said a lady at her pharmacy told her about Nexletol (bempedoic acid). Can I send RX for that? I told her if it was too pricey for her we could then try injections. Please advise. Thanks. 36 Observed: 11/24/2023 3:13 PM Status: COMPLETED Source: [facility] Regarding lab results from : MD Theresa Howell MA Please prescribe Repatha or Praluent - whichever is covered by insurance Thanks LM for patient on her VM asking her to return my call. PROGRESS Observed: 11/03/2023 1:45 PM Status: COMPLETED Source: [facility] Cardiology Clinic Note Chief Complaint: [...] Dr. Andrew already scheduled 5. Follow-up with [facility] cardiology on an as-needed basis MARY JANE SCHAEFFER Age/Sex/Date of : 53, F - 1970 Created on: 10/31/2023 16:24 EDT TSH Collected Result Units Reference 06/17/23 15:06 3.330 uIU/mL 0.358-3.740 Thyroxine (T4) Collected Result Units Reference 06/17/23 15:06 11.20 ug/dL 4.80-13.90 Free T3 Collected Result Units Reference 06/17/23 15:06 2.05 L pg/mL 2.18-3.98 Assessment: Syncope - Chest pain Paroxysmal supraventricular tachycardia Morbid obesity Essential hypertension - Uncontrolled Obstructive sleep apnea syndrome Diabetes mellitus Type 2 Dyspnea on exertion Low free T3 Elevated s.cr 1.25 Plan: A 30-day event monitor +/- referral to EP Complete echocardiogram Lexiscan stress test She is to monitor her heart rate and blood pressure at home and let us know of any significant fluctuations In the interim, she is to continue optimal medical therapy for coronary artery disease including Plavix (she cannot tolerate aspirin- it causes emesis), high intensity statin therapy or a PCSK9 inhibitor, a beta-ayala and a RAAS inhibitor given her diabetes mellitus. Will discuss PCSK9 inhibitor at her next visit Will check a CMP and FLP 1 week after PAULETTE-I Given diabetes and vascular disease, she is appropriately on a GLP-1 receptor agonist; she could not tolerate Farxiga which caused REBEL Return to clinic following testing Rebeca Valadez MD, MPH, FACC, [facility], [facility] Interventional Cardiology Pager Email: [email or web address] OFFICE VISIT Observed: 11/03/2023 1:45 PM Status: COMPLETED Source: [facility] [id number] [facility],Authumn D 1970 F Date Provider Department Center 11/03/2023 271-REBECA VALADEZ [facility] Family History Problem Relation Age of Onset Angina Mother Heart attack Mother Heart attack Maternal Grandfather Family Status - Relation Status Age at Mother Maternal Grandfather Level of Service:7[address]16 [place] OFFICE/OUTPATIENT NEW MODERATE MDM 45 MINUTES ALLERGIES DATE TYPE / CODE NAME / CODE REACTION SEVERITY SOURCE 5 DRUG INGREDI/236249053( SNOMED CT) EGG (Inactive) GI intolerance [facility] 5 DRUG INGREDI/029795557( SNOMED CT) SOY Other [facility] 5 DRUG INGREDI/570162575( SNOMED CT) DOXYCYCLINE Rash [facility] 4 DRUG INGREDI~Food~Envir on/365905722(SNOME D CT) SOY [facility] 4 Drug Class~Environ~NON- CBORD/715381504(SN OMED CT) ADHESIVE Rash [facility] 4 DRUG INGREDI/561456086( SNOMED CT) ATORVASTATIN Other [facility] 4 DRUG INGREDI/436872810( SNOMED CT) AZITHROMYCIN Other [facility] 4 DRUG INGREDI/257170667( SNOMED CT) CIPROFLOXACIN Other [facility] 4 DRUG INGREDI/110758470( SNOMED CT) CEPHALEXIN Other [facility] 4 Miscellaneous Allergy/142243470( SNOMED CT) OTHER Other [facility] 4 Drug Class/216710145(SN OMED CT) PENICILLINS Other [facility] 4 DRUG/433664073(SNO MED CT) OXYCODONE-ACETAMINOP HEN Other [facility] 4 DRUG INGREDI/641516190( SNOMED CT) SIMVASTATIN Other [facility] 4 DRUG INGREDI~NON-CBORD/ 676542651(SNOMED CT) AZITHROMYCIN [facility] 3 DRUG INGREDI~NON-CBORD/ 594980230(SNOMED CT) SULFANILAMIDE Anaphylaxis [facility] 3 DRUG INGREDI~NON-CBORD/ 765179015(SNOMED CT) TRIMETHOPRIM Anaphylaxis [facility] 8 DRUG/413048325(SNO MED CT) SULFAMETHOXAZOLE-TRI METHOPRIM Anaphylaxis~Oth er [facility] 8 DRUG INGREDI/002708814( SNOMED CT) MOXIFLOXACIN Hives~[facility] 8 DRUG INGREDI/910926036( SNOMED CT) ASPIRIN Other~Rash Low [facility] 8 DRUG~NON-CBORD/419 524444(SNOMED CT) SULFAMETHOXAZOLE-TRI METHOPRIM Anaphylaxis High [facility] 8 Drug Class~NON-CBORD/41 7228022(SNOMED CT) PENICILLINS Anaphylaxis [facility] 8 DRUG INGREDI~NON-CBORD/ 468872686(SNOMED CT) ASPIRIN Vomiting [facility] 8 DRUG INGREDI~NON-CBORD/ 029377784(SNOMED CT) MOXIFLOXACIN [facility] 8 DRUG INGREDI~NON-CBORD/ 674195780(SNOMED CT) CEFPROZIL [facility] 8 DRUG INGREDI~NON-CBORD/ 267029070(SNOMED CT) CEPHALEXIN [facility] 8 DRUG INGREDI~NON-CBORD/ 023504545(SNOMED CT) CIPROFLOXACIN [facility] 8 DRUG~NON-CBORD/419 437949(SNOMED CT) OXYCODONE-ACETAMINOP HEN Vomiting [facility] 1 DRUG INGREDI/724478657( SNOMED CT) CEFPROZIL Hives~Other [facility] 1 DRUG INGREDI~NON-CBORD/ 531293088(SNOMED CT) SULFAMETHOXAZOLE Anaphylaxis~Swe lling High [facility] ENCOUNTERS ADMIT/DISCHARGE ACCOUNT NUMBER ADMITTING ENCOUNTER CLASS LOCATION SOURCE 10/07/2024 [id number] Inpatient Encounter Building:[facility] 10/07/2024 [id number] Inpatient Encounter Building:[facility] 10/07/2024 [id number] Inpatient Encounter Building:JESSA MENDEZ [facility] 10/06/2024/10/12/19 [id number] JOSE LUIS DACOSTA Inpatient Encounter Building:[facility] URoom: 3120Bed: 3120-01 [facility] 09/28/2024/09/29/19 [id number] Ambulatory Building:NOM S SH ENDO [facility] EPIC 08/21/2024/08/22/19 [id number] [facility] 08/12/2024/08/13/19 [id number] Ambulatory Building:NOM S CI POD [facility] EPIC 08/11/2024/08/12/19 [id number] Jorge Early [facility] 08/10/2024/08/11/19 [id number] Ambulatory Building:BSR NEURO [facility] EPIC 07/07/2024 [id number] Ambulatory Building:[facility] 05/03/2024/05/04/20 24 [id number] Troy Moya [facility] 04/08/2024/04/08/20 24 [id number] Ambulatory Building:NOM S CI POD [facility] EPIC 04/05/2024/04/05/20 24 [id number] Mc Roque [facility] 03/17/2024/03/24/20 24 [id number] Audra Wheat Inpatient Encounter [facility] nTRoom: [id number]: 1 [facility] 03/16/2024/03/16/20 24 [id number] Arun [facility] ng:ER [facility] 03/10/2024/03/10/20 24 [id number] [facility] 03/03/[facility]24/03/03/20 24 [id number] Emergency Building:PFM _EDRoom: 6Bed: 06 [facility] 03/03/2024/03/03/20 24 [id number] [facility] 02/27/2024/02/27/20 24 [id number] Inpatient Encounter Building:PFM [facility] 02/27/2024/02/27/20 24 [id number] Inpatient Encounter Building:PF _[facility] 02/20/2024/02/27/20 24 [id number] GHANSHYAM CUMMINS Inpatient Encounter Building:PFM _ACUTERoom: 205Bed: 01 [facility] 02/20/2024/02/20/20 24 [id number] Ambulatory Building:PF _[facility] 02/13/2024/02/13/20 24 [id number] Ambulatory Building:[facility] 02/06/2024/02/06/20 24 [id number] [facility] 01/30/2024/01/30/20 24 [id number] Ambulatory Building:[facility] _LAB [facility] 01/30/2024/01/30/20 24 [id number] Ambulatory Building:[facility] 01/29/2024/01/29/20 24 [id number] Ambulatory Building:NOM S CI POD [facility] EPIC 01/21/2024/01/21/20 24 [id number] Ambulatory Building:BWM GENSURG [facility] EPIC 12/18/2023/12/18/19 24 [id number] Ambulatory Building:[facility] 11/13/2023/11/13/19 24 [id number] Ambulatory Building:NOM S CI POD [facility] EPIC 11/10/2023/11/10/19 24 [id number] Ambulatory Building:BSR NEURO [facility] EPIC 11/03/2023/11/03/19 24 [id number] Ambulatory Building:[facility] PAYERS ENCOUNTER GUARANTOR PAYER SUBSCRIBER SOURCE 10/07/2024 Primary Insurance:[facility] MEDICARE ADVANTAGEPolicy Number: [id number] Date:2023-06-02 AUTHUMN Danii BUNDSCHUHDOB: [id number] JR BANSAL [address] [place] [address] 10/07/2024 Secondary [place]: [id number] Date:2017-06-02 AUTHSUDHEER Foy BUNDSCHDOB: [id number] JR BANSAL [address] [place], [place] [address] 10/07/2024 Primary Insurance:[facility] MEDICARE ADVANTAGEPolicy Number: [id number] Date:2023-06-02 AUTHUMN Danii BUNDSCHDOB: [id number] [address] [address] [facility] 10/07/2024 Secondary Insurance:[place]: [id number] Date:2017-06-02 AUTHUMN D BUNDSCHUHDOB: [id number] [address] [address] [facility] 10/07/2024 Primary Insurance:[employer] MEDICARE ADVANTAGEPolicy Number: [id number] Date:2023-06-02 AUTHUMN D BUNDSCHUHDOB: [id number] JR [address] [place] [address] [facility] 10/07/2024 Secondary Insurance:[place]: [id number] Date:2017-06-02 AUTHUMN Danii BUNDSCHUHDOB: [id number] [address] [place] [address] [facility] 10/06/2024 Primary Insurance:[employer]HEM MEDICARE ADVANTAGEPolicy Number: [id number] Date:2023-06-02 AUTHUMN D BUNDSCHUHDOB: [id number] [address] [address] [facility] 10/06/2024 Secondary Insurance:[place]: [id number] Date:2017-06-02 AUTHUMN Danii BUNDSCHUHDOB: [id number] [address] [address] [facility] 09/28/2024 AUTHUMN D BUNDSCHUHDOB: JR [address], [place] [address]Pye: () Primary Insurance:[employer]HE[place] MEDICARE ADVANTAGEPolicy Number: [id number] Date:2021-06-02 AUTHUMN Danii BUNDSCHUHDOB: [id number] [address] [place] [address] [facility] EPIC 09/28/2024 Secondary Insurance:[place] Number: [id number] Date:2017-06-02 AUTHUMN D BUNDSCHUHDOB: [id number] [address], [place] [address] [facility] EPIC 08/12/2024 AUTHUMN D BUNDSCHUHDOB: [address], [place] [address]Gax: (HP) Primary Insurance:[place] MEDICARE ADVANTAGEPolicy Number: [id number] Date:2021-06-02 AUTHUMN D BUNDSCHUHDOB: [id number] [address] [place] [address] [facility] EPIC 08/12/2024 Secondary Insurance:[place] Number: [id number] Date:2017-06-02 AUTHUMN D BUNDSCHUHDOB: [id number] [address], [place] [address] [facility] EPIC 08/10/2024 AUTHUMN D BUNDSCHUHDOB: [place] [address]Ggv: (HP) Primary Insurance:[place] MEDICARE ADVANTAGEPolicy Number: [id number] Date:2021-06-02 AUTHUMN D BUNDSCHUHDOB: [id number] AL[address], [place] [address] [facility] EPIC 08/10/2024 Secondary Insurance:[place] Number: [id number] Date:2017-06-02 AUTHUMN D BUNDSCHUHDOB: [id number] AVLIN[address]ISE [address], [place] [address] [facility] EPIC 07/07/2024 Primary Insurance:ANTH MEDICARE ADVANTAGEPolicy Number: [id number] Date:2023-06-02 AUTHUMN D BUNDSCHUHDOB: [id number] [address] [address] [facility] 07/07/2024 Secondary Insurance:[place] Number: [id number] Date:2017-06-02 AUTHUMN D BUNDSCHUHDOB: [id number] [address] [address] [facility] 04/08/2024 AUTHUMN D BUNDSCHUHDOB: [address] [address]Hkm: (HP) Primary Insurance:[facility] MEDICARE ADVANTAGEPolicy Number: [id number] Date:2021-06-02 [facility] D [facility]SELLEIREDE[facility]ITALDOB: [id number] [address] [place] [address] [facility] 04/08/2024 Secondary Insurance:MEDICAID [place] Number: [id number] Date:2017-06-02 [facility] D BUNDSCHDOB: [id number] [address] [address] [facility] 03/10/2024 AUTHUMN D BUNDSCHUHDOB: JR [address], [place] [address]Bqi: (HP) Primary Insurance:[facility] MEDICARE ADVANTAGEPolicy Number: [id number] Date:2023-06-02 AUTHUMN D BUNDSCHUHDOB: [id number] JR [address], [place] [address]Lyu: (HP) [facility] 03/10/2024 Secondary Insura nce:[place] MEDICAIDPolicy Number: [id number] Date:2017-06-02 AUTHUMN D BUNDSCHUHDOB: [id number] [address], [place] [address]Jvs: (HP) [facility] 03/03/2024 AUTHUMN D BUNDSCHUHDOB: JR [address], [place] [address]Zhh: (HP) Primary Insurance:[facility] MEDICARE ADVANTAGEPolicy Number: [id number] Date:2023-06-02 [facility] D [facility] CREEKB: [id number] JR [address], [place] [address]Wbl: (HP) [facility] 03/03/2024 Secondary Insura nce:[place] MEDICAIDPolicy Number: [id number] Date:2017-06-02 [facility] CREEKB: [id number] JR [address], [place] [address]Nxb: (HP) [facility] 03/03/2024 [facility] D [facility] CREEKDOB: JR [address], [place] [address]Bac: (HP) Primary Insurance:[facility] MEDICARE ADVANTAGEPolicy Number: [id number] Date:2023-06-02 [facility] D [facility] ST[facility] CREEKB: [id number] JR [address], [place] [address]Xts: (HP) [facility] 03/03/2024 Secondary Insura nce:[place] MEDICAIDPolicy Number: [id number] Date:2017-06-02 [facility] D [facility] CREEKDOB: [id number] [address], [place] [address]Ckg: (HP) [facility] 02/27/2024 [facility] D [facility] CREEKDOB: JR [address], [place] [address]Tho: (HP) Primary Insurance:[employer] MEDICARE ADVANTAGEPolicy Number: [id number] Date:2023-06-02 AUTHUNC [facility] CALDWELLDOB: [id number] JR [address], [place] [address]Men: (HP) [facility] 02/27/2024 Secondary Insura nce:[place] MEDICAIDPolicy Number: [id number] Date:2017-06-02 [facility] D [facility] CREEKDOB: [id number] JR [address], [place] [address]Avf: (HP) [facility] 02/27/2024 [facility] D [facility] CREEKDOB: JR [address], [place] [address]Fwg: (HP) Primary Insurance:[employer]HEM MEDICARE ADVANTAGEPolicy Number: [id number] Date:2023-06-02 [facility] Danii [facility] ST[facility] CREEKB: [id number] JR [address], [place] [address]Vxw: (HP) [facility] 02/27/2024 Secondary Insura nce:[place] MEDICAIDPolicy Number: [id number] Date:2017-06-02 [facility] Danii [facility] CREEKB: [id number] JR [address], [place] [address]Van: (HP) [facility] 02/20/2024 [facility] Danii [facility] CREEKDOB: JR [address], [place] [address]Unz: (HP) Primary Insurance:[facility] MEDICARE ADVANTAGEPolicy Number: [id number] Date:2023-06-02 [facility] D [facility] CREEKDOB: [id number] JR [address], [place] [address]Imr: (HP) [facility] 02/20/2024 Secondary Insura nce:[place] MEDICAIDPolicy Number: [id number] Date:2017-06-02 [facility] D [facility]PITALDOB: [id number] [address], [place] [address]Fdj: (HP) [facility] 02/20/2024 [facility] Danii [facility]IREDE[facility]PITALDOB: JR [address], [place] [address]Nev: (HP) Primary Insurance:[employer]HEM MEDICARE ADVANTAGEPolicy Number: [id number] Date:2023-06-02 [facility] D [facility] CREEKDOB: [id number] JR [address], [place] [address]Kod: (HP) [facility] 02/20/2024 Secondary Insura nce:[place] MEDICAIDPolicy Number: [id number] Date:2017-06-02 [facility] D [facility]SELLEIREDELL [facility] HOSPITALDOB: [id number] JR [address], [place] [address]Kof: (HP) [facility] 02/13/2024 [facility] Danii [facility]TSIREDELL [facility] HOSPITALDOB: JR [address], [place] [address]Neu: (HP) Primary Insurance:[employer]HEM MEDICARE ADVANTAGEPolicy Number: [id number] Date:2023-06-02 [facility] Danii PITTSIREDELL [facility]OR[facility] HOSPITALDOB: [id number] JR [address], [place] [address]Oeg: (HP) [facility] 02/13/2024 Secondary Insura nce:[place] MED[place]IDPolicy Number: [id number] Date:2017-06-02 [facility] Danii PITTSIREDELL MEMORIAL HOSPITALDOB: [id number] JR [address], [place] [address]Zxs: (HP) [facility] 02/06/2024 [facility] D [facility] C[facility]DOB: [id number] JR [address], [place] [address]Arl: (HP) Primary Insurance:[facility] MEDICARE ADVANTAGEPolicy Number: [id number] Date:2023-06-02 [facility] D [facility] CREEKDOB: [id number] JR [address], [place] [address]Owh: (HP) [facility] 02/06/2024 Secondary Insura nce:[place] MED[place]IDPolicy Number: [id number] Date:2017-06-02 AUTHUMN D [facility] CREEKDOB: [id number] [address], [place] [address]Htc: (HP) [facility] 01/30/2024 AUTHUMN D [facility] C[facility]DOB: JR [address], [place] [address]Brd: (HP) Primary Insurance:[facility] MEDICARE ADVANTAGEPolicy Number: [id number] Date:2023-06-02 [facility] D BUNDCAROMONT REGION[facility] - MOUNT HOLLYUHDOB: [id number] JR [address], [place] [address]Mri: (HP) [facility] 01/30/2024 Secondary Insura nce:[place] MEDICAIDPolicy Number: [id number] Date:2017-06-02 AUTHUMN D BUNDCAROMONT REGION[facility] - MOUNT HOLLYUHDOB: [id number] JR [address], [place] [address]Jme: (HP) [facility] 01/30/2024 AUTHUMN D BUNDSCHUHDOB: JR [address], [place] [address]Xdt: (HP) Primary Insurance:[employer]HEM MEDICARE ADVANTAGEPolicy Number: [id number] Date:2023-06-02 AUTHUMN D [facility]ERSCHDOB: [id number] JR [address], [place] [address]Vyn: (HP) [facility] 01/30/2024 Secondary Insura nce:[place] MEDICAIDPolicy Number: [id number] Date:2017-06-02 AUTHUMN D BUNDSCHUHDOB: [id number] [address], [place] [address]Qwx: (HP) [facility] 01/29/2024 AUTHUMN D BUNDSCHUHDOB: [address] [address]Ths: (HP) Primary Insurance:[employer]HEM MEDICARE ADVANTAGEPolicy Number: [id number] Date:2021-06-02 AUTHUMN D BUNDSCHUHDOB: [id number] [address] [place] [address] [facility] 01/29/2024 Secondary Insurance:MED[place]ID [place] Number: [id number] Date:2017-06-02 AUTHUMN D BUNDSCHUHDOB: [id number] [address] [address] [facility] EPIC 01/21/2024 AUTHUMN D BUNDSCHUHDOB: [address] [address]Vce: (HP) Primary Insurance:[employer]HEM MEDICARE ADVANTAGEPolicy Number: [id number] Date:2021-06-02 AUTHUMN D BUNDSCHUHDOB: [id number] [address] [address] [facility] EPIC 01/21/2024 Secondary Insurance:[place] Number: [id number] Date:2017-06-02 AUTHUMN D BUNDSCHUHDOB: [id number] [address] [address] [facility] EPIC 12/18/2023 Primary Insurance:ANTH MEDICARE ADVANTAGEPolicy Number: [id number] Date:2023-06-02 AUTHUMN D BUNDSCHUHDOB: [id number] [address] [place] [address] 12/18/2023 Secondary Insurance:[place]: [id number] Date:2017-06-02 AUTHUMN D BUNDSCHUHDOB: [id number] [address] 11/13/2023 AUTHUMN D BUNDSCHUHDOB: JR [address]AP[address] [address]Siz: (HP) Primary Insurance:ANTH MEDICARE ADVANTAGEPolicy Number: [id number] Date:2021-06-02 AUTHUMN D BUNDSCHUHDOB: [id number] [address] [address] [facility] EPIC 11/13/2023 Secondary Insurance:[place] Number: [id number] Date:2017-06-02 AUTHUMN D BUNDSCHUHDOB: [id number] JR [address] [address] [facility] EPIC 11/10/2023 AUTHUMN D BUNDSCHUHDOB: [address], [place] [address]Cgo: (HP) Primary Insurance:[facility] MEDICARE ADVANTAGEPolicy Number: [id number] Date:2021-06-02 AUTHUMN D BUNDSCHUHDOB: [id number] [address] [facility] EPIC 11/10/2023 Secondary Insurance:[place] Number: [id number] Date:2017-06-02 AUTHUMN D BUNDSCHUHDOB: [id number] [address] [facility] 11/03/2023 Primary Insurance:[facility] MEDICARE ADVANTAGEPolicy Number: [id number] Date:2023-06-02 MARY JANE PITTSMEMORIAL HEALTHCAREB: [id number] [place] [address] [facility] 11/03/2023 Secondary Insurance:[facility]ICAID [facility] Number: [id number] Date:2021-12-31 MARY JANE PITTSSCHB: [id number] [place] [address] [facility]
--- OUTSIDE RECORDS SUMMARY | 2024-10-07 14:30 | XMS_ITS ---
[...] Next of Kin Unknown [phone] [facility] Next of Kin Unknown [phone] ADELAIDA BELL Next of Kin Unknown [phone] [facility] Next of Kin Unknown [phone] ADELAIDA BELL Next of Kin Unknown [phone] [facility] Next of Kin Unknown [phone] BANNERMCKAYLA, CURTIS Next of Kin Unknown [phone] ADELAIDA BELL Next of Kin Unknown [phone] DANIELLE, CURTIS Next of Kin [address] [place] [address] Unavailable CURTIS SCHAEFFER Next of Kin [address] [place] [address] Unavailable MAKSIM, CURTIS Next of Kin [address] [place] [address] Unavailable BUNDSCHUH, CURTIS Next of Kin [address] [place] [address] Unavailable BUNDSCHUH, CURTIS Next of Kin [address] [place] [address] Unavailable BUNDSCHUH, CURTIS Next of Kin [address] [place] [address] Unavailable BUNDSCHUH, CURTIS Next of Kin [address] [place] [address] Unavailable BUNDSCHUH, CURTIS Next of Kin [address] [place] [address] Unavailable BUNDSCHUH, CURTIS Next of Kin [address] [place] [address] Unavailable BUNDSCHUH, CURTIS Next of Kin [address] [place] [address] Unavailable BUNDSCHUH, CURTIS Next of Kin [address] [place] [address] Unavailable BUNDSCHUH, CURTIS Next of Kin [address] [place] [address] Unavailable BUNDSCHUH, CURTIS Next of Kin [address] [place] [address] Unavailable BUNDSCHUH, CURTIS Next of Kin [address] [place] [address] Unavailable BUNDSCHUH, CURTIS Next of Kin [address] [place] [address] Unavailable BUNDSCHUH, CURTIS Next of Kin [address] [place] [address] Unavailable BUNDSCHUH, CURTIS Next of Kin [address] [place] [address] Unavailable BUNDSCHUH, CURTIS Next of Kin [address] [place] [address] Unavailable BUNDSCHUH, CURTIS Next of Kin [address] [place] [address] Unavailable BUNDSCHUH, CURTIS Next of Kin [address] [place] [address] Unavailable BUNDSCHUH, CURTIS Next of Kin [address] [place] [address] Unavailable BUNDSCHUH, CURTIS Next of Kin [address] [place] [address] Unavailable [facility] Next of Kin Unknown [phone] ADELAIDA BELL Next of Kin Unknown [phone] [facility] Next of Kin Unknown [phone] RAY, ADELAIDA Next of Kin Unknown [phone] [facility] Next of Kin Unknown [phone] [facility] Next of Kin Unknown [phone] RAY, ADELAIDA Next of Kin Unknown [phone] [facility] Next of Kin Unknown [phone] RAY, ADELAIDA Next of Kin Unknown [phone] [facility] Next of Kin Unknown [phone] Care Team Providers Care Ear Muff Assembler Name Role Phone RAVINDER CHAPMAN Referring Unavailable JAKE BUCKLEY Referring Unavailable JAKE BUCKLEY Referring Unavailable MAIA REYES Referring Unavailable JOSE LUIS DACOSTA Admitting Unavailable RAVINDER CHAPMAN Attending Unavailable ROHAN, EHAB Attending Unavailable ROHAN, REBECA Attending Unavailable ROHAN, REBECA Attending Unavailable IRMA NGUYEN Attending Unavailable ENEDINA ROMERO Attending Unavailable MARTI DUNHAM Attending Unavailable ENEDINA ROMERO Attending Unavailable ENEDINA ROMERO Attending Unavailable IRMA NGUYEN Attending Unavailable ENEDINA ROMERO Attending Unavailable ELÍAS JACINTO Attending Unavailable ELÍAS JACINTO F Referring Unavailable Shantanu, Ann Tash Primary Care Unavailable Arun Riggins Admitting Unavailable Arun Riggins Attending Unavailable Munir Morelos Admitting UnavailMunir Milligan Attending Unavaildaryl e Shantanu, Ann Tash Primary Care Unavailable Shantanu, Ann Tash Primary Care Unavailable Mc Roque Admitting Unavailable Mc Roque Attending Unavailable Jorge Early Admitting Unavailable Jorge Early Attending Unavailable Shantanu, Ann Tash Primary Care Unavailable Shantanu, Ann Tash Primary Care Unavailable Billy Nickerson Attending Unavailab Audra Baeza Admitting Unavailable Troy Moya Consulting Unavailable Antonio Jenkins Consulting Unavailable Shantanu, Ann Tash Primary Care Unavailable Troy Moya Admitting Unavailable Troy Moya Attending Unavailable BONNIE, JAYLEEN P Attending Unavailable SHANTANU, [...] S Primary Care Unavailable ANTONIO PARRA Attending UnavailGHANSHYAM Howe Admitting Unavailable ONLY), [facility] (INPATIENT Consult ing Unavailable JACKY AMAYA Consulting Unavailable BIANKA LACY Consulting Unavailable DIVISION OF INFECTIOUS DISEASE, [facility] Consulting Unavailable GERMAINE FREEMAN Attending Unavailable SHANTANU, ANN S Primary Care Unavailable GERMAINE FREEMAN Attending Unavailable SHANTANU, ANN S Primary Care Unavailable BONNIEJAYLEEN P Attending Unavailable SHANTANU, ANN S Referring Unavailable SHANTANU, ANN S Primary Care Unavailable SHANTANU, ANN S Primary Care Unavailable KEV JACKSON Attending Unavailable BALTAZAR BACON Attending Unavailable SHANTANU, ANN S Referring Unavailable SHANTANU, ANN S Primary Care Unavailable PROBLEMS DATE TYPE CONDITION / CODE ATTENDING STATUS [facility] 10/06/2024 Admitting Diagnosis Non-ST elevation (NSTEMI) myocardial infarction / I21.4(ICD-10) BENSON CHAPMAN Active [facility] 10/06/2024 Admitting Diagnosis Pneumonia, unspecified organism / J18.9(ICD-10) ADELA [facility] Active [facility] 11/03/2023 Admitting Diagnosis Type 2 diabetes mellitus without complications / E11.9(ICD-10) ADELA [facility] 11/03/2023 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 / Z79.4(ICD-10) ADELA [facility] 10/06/2024 Admitting Diagnosis Obstructive sleep apnea (adult) (pediatric) / G47.33(ICD-10) RAVINDER CHAPMAN Active [facility] 11/03/2023 Admitting Diagnosis Other hyperlipidemia / E78.49(ICD-10) REBECA VALADEZ Active [facility] 05/03/2024 Unknown Other acute postprocedural pain / G89.18(ICD-10) Troy Moya [facility] 03/17/2024 Unknown Unspecified open wound of abdominal wall, unspecified quadrant without penetration into peritoneal cavity, initial encounter / S31.109A(ICD-10) DoNikolai chewderick E [facility] 03/17/2024 Unknown Type 2 diabetes mellitus with diabetic chronic kidney disease / E11.22(ICD-10) Dojeevan, Billy [facility] 03/17/2024 Unknown Cutaneous absces s, unspecified / L02.91(ICD-10) Doanastasiacalixto, Billy E [facility] 03/17/2024 Unknown Hyperlipidemia, unspecified / E78.5(ICD-10) Doanastasiakpcalixto, Billy E [facility] 03/17/2024 Unknown Chronic kidney disease, stage 3 unspecified / N18.30(ICD-10) Doanastasiakpcalixto, Billy E [facility] 03/17/2024 Unknown Hypoparathyroidi sm, unspecified / E20.9(ICD-10) [facility] 03/17/2024 Unknown 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 / E79.0(ICD-10) Doanastasiakpcalixto, Billy [facility] 03/17/2024 Unknown Resistance to mu ltiple antibiotics / Z16.24(ICD-10) Doanastasiacalixto, Billy [facility] 03/10/2024 Unknown Cellulitis of abdominal wall / L03.311(ICD-10) BALTAZAR BACON [facility] 02/20/2024 Unknown Local infection of the skin and subcutaneous tissue, unspecified / L08.9(ICD-10) ANTONIO PARRA [facility] 02/20/2024 Unknown Other injury of unspecified body region, initial encounter / T14.8XXA(ICD-10) ANTONIO PARRA [facility] 02/20/2024 Unknown Wound Check / UNK(Unknown) ANTONIO PARRA [facility] 02/06/2024 Unknown Toxic effect of unspecified spider venom, accidental (unintentional), subsequent encounter / T63.301D(ICD-10) JAYLEEN NICOLE [facility] 01/30/2024 Unknown Non-pressure chr onic ulcer of skin of 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 / L98.492(ICD-10) JAYLEEN NICOLE [facility] 01/30/2024 Unknown Toxic effect of unspecified spider venom, accidental (unintentional), initial encounter / T63.301A(ICD-10) JAYLEEN NICOLE [facility] 01/30/2024 Unknown Wound Check / FREETEXT(AOF) JAYLEEN NICOLE [facility] 11/03/2023 Admitting Diagnosis Mixed hyperlipidemia / E78.2(ICD-10) [facility] 12/18/2023 Admitting Diagnosis Hypertensive heart disease without heart failure / I11.9(ICD-10) [facility] 11/03/2023 Admitting Diagnosis Atherosclerotic heart disease of [place] coronary artery without angina pectoris / I25.10(ICD-10) [facility] 11/03/2023 Admitting Diagnosis Syncope and collapse / R55(ICD-10) [facility] 11/03/2023 Admitting Diagnosis Supraventricular tachycardia, unspecified / I47.10(ICD-10) [facility] 11/03/2023 Admitting Diagnosis Unstable angina / I20.0(ICD-10) [facility] PROCEDURES No Procedure Records Found RESULTS NURSNOTE Observed: 10/11/2024 3:34 PM Status: COMPLETED Source: [facility] AVS gone over with patient a nd all questions answered at this time. Patient encouraged to call if any new questions/concerns arise. 30 Observed: 10/11/2024 1:52 PM Status: COMPLETED Source: [facility] The patient is Moderately St able - [...] Observed: 10/11/2024 1:13 PM Status: COMPLETED Source: [facility] discharge planning: to Home with [facility] resuming services AVS sent to [facility], via [employer] system POCT GLUCOSE METER UNSOLICIT ED RESULTS Collected: 10/11/2024 12:03 PM Status: UNK Source: [facility] Order Comment: Waived Testin g in the ED is performed under the ED CLIA certificate #[id number]. TYPE CODE TESTS RESULT OUT OF RANGE REFERENCE UNITS LAB 885 POCT GLUCOSE 318 High 70-105 mg/dL Result Comment: [email or web address] Performed By: #### [id number] #### [facility] ([facility]) [address] [place] [address] NURSNOTE Observed: 10/11/2024 8:18 AM Status: COMPLETED Source: [facility] The findings from this face to face [...] Collected: 10/11/2024 7:32 AM Status: UNK Source: [facility] Order Comment: Waived Testin g in the ED is performed under the ED CLIA certificate #[id number]. TYPE CODE TESTS RESULT OUT OF RANGE REFERENCE UNITS LAB 885 POCT GLUCOSE 232 High 70-105 mg/dL Result Comment: [email or web address] Performed By: #### [id number] #### [facility] ([facility]) [address] [place] [address] CBC Collected: 10/11/2024 3:57 AM Status: UN K Source: [facility] TYPE CODE TESTS RESULT OUT OF RANGE REFERENCE UNITS LAB [id number] LEUKOCYTES(10*3/ U L) IN BLOOD BY AUTOMATED COUNT 5.66 4.00-10.60 10*3/uL LAB [id number] ERYTHROCYTES (10*6/UL) IN BLOOD BY AUTOMATED COUNT 2.82 Low 3.80-5.00 10*6/uL LAB [id number] HEMOGLOBIN (G/DL ) IN BLOOD 8.6 Low 12.0-15.0 g/dL LAB [id number] HEMATOCRIT (%) I N BLOOD BY AUTOMATED COUNT 26.9 Low 36.0-45.0 % LAB [id number] ERYTHROCYTE MEAN CORPUSCULAR VOLUME (FL) BY AUTOMATED COUNT 95.4 82.0-98.0 fL LAB [id number] ERYTHROCYTE MEAN CORPUSCULAR HEMOGLOBIN (PG) BY AUTOMATED COUNT 30.5 27.0-33.0 pg LAB [id number] ERYTHROCYTE MEAN CORPUSCULAR HEMOGLOBIN CONCENTRATION (G/DL) BY AUTOMATED 32.0 32.0-35.0 g/dL LAB [id number] ERYTHROCYTE DISTRIBUTION WIDTH (RATIO) BY AUTOMATED COUNT 14.8 11.5-15.0 % LAB [id number] PLATELETS (10*3/UL) IN BLOOD AUTOMATED COUNT 171 150-400 10*3/uL Performed By: #### [id number] ## ## [facility] ([facility]) [address] [place] [address] 30 Observed: 10/10/2024 10:11 PM Status: COMPLETED Source: [facility] Problem: Pain - Adult Goal: Verbalizes/displays adequate [...] and behaviors that affect risk of falls [employer] fall precautions as indicated by assessment Educate [...] Collected: 10/10/2024 8:04 PM Status: UNK Source: [facility] Order Comment: Waived Testin g in the ED is performed under the ED CLIA certificate #[id number]. TYPE CODE TESTS RESULT OUT OF RANGE REFERENCE UNITS LAB 885 POCT GLUCOSE 289 High 70-105 mg/dL Result Comment: [email or web address] Performed By: #### [id number] #### [facility] ([facility] [address] [place] [address] NURSNOTE Observed: 10/10/2024 6:15 PM Status: COMPLETED Source: [facility] Pt was to discharge today bu t is delayed by home O2 order and a med that needs changed, IV access d/c'd per order earlier, MD aware of all of this, pt agreeable and understanding. No further issues noted. POCT GLUCOSE METER UNSOLICIT ED RESULTS Collected: 10/10/2024 4:43 PM Status: UNK Source: [facility] Order Comment: Waived Testin g in the ED is performed under the ED CLIA certificate #[id number]. TYPE CODE TESTS RESULT OUT OF RANGE REFERENCE UNITS LAB 885 POCT GLUCOSE 320 High 70-105 mg/dL Result Comment: [email or web address] Performed By: #### [id number] #### [facility] ([facility]) [address] [place] [address] 30 Observed: 10/10/2024 3:38 PM Status: COMPLETED Source: [facility] Daily Case Management Update Multidisciplinary rounds have been completed. Barriers to Discharge: nearly medically ready/discharge pulled today. Await clarification on medications. Dc Plan : Home, resume [facility]. TG called Rusty @ [employer] [facility] agreeable to provide Home O2. Scripts/Orders/Progress Notes [...] Observed: 10/10/2024 2:48 PM Status: COMPLETED Source: [facility] This report has been cancell ed. PROGRESS Observed: 10/10/2024 1:43 PM Status: COMPLETED Source: [facility] Patient is currently enrolle d with [facility]; updates have been sent. A follow-up phone call confirmed that the patient remains active and is eligible to resume services. POCT GLUCOSE METER UNSOLICIT ED RESULTS Collected: 10/10/2024 11:51 AM Status: UNK Source: [facility] Order Comment: Waived Testin g in the ED is performed under the ED CLIA certificate #[id number]. TYPE CODE TESTS RESULT OUT OF RANGE REFERENCE UNITS LAB 885 POCT GLUCOSE 338 High 70-105 mg/dL Result Comment: [email or web address] Performed By: #### [id number] #### [facility]) [address] [place] [address] PROGRESS Observed: 10/10/2024 11:35 AM Status: COMPLETED Source: [facility] 10/10/24 1115 Home Oxygen Therapy Evaluation Pulse Oximetry on room air at Rest 91 Pulse Ox on O2 with nasal cannula while at rest 94 (2L) Pulse Ox on room air while walking 84 Pulse Ox on O2 with nasal cannula while walking 93 (4L) Patient Qualification for home oxygen Qualifies 30 Observed: 10/10/2024 11:05 AM Status: COMPLETED Source: [facility] The patient is Moderately St able - [...] Observed: 10/10/2024 10:11 AM Status: COMPLETED Source: [facility] Hospital Medicine Discharge Summary Final Discharge Diagnosis: Right lower lobe pneumonia Uncontrolled hyperglycemia with underlying type 2 diabetes mellitus Chronic kidney disease stage II-III Hyperlipidemia Hypothyroidism Hypertension Class III obesity Mildly elevated troponin likely supply/demand mismatch Anemia likely chronic Admission Diagnosis: NSTEMI (non-ST elevated myocardial infarction) ([facility]) [I21.4] Hospital course: Mary Jane Schaeffer is [...] Center 11/09/2024 1:45 PM Rebeca Valadez MD [facility] [place] [facility] Your medication list START taking these [...] Medications These medications were sent to [facility] - [address] [place] [address] [facility] [place] [address], [facility] [address] atorvastatin 80 mg tablet cefpodoxime 200 mg [...] was 60 minutes. Signed Ravinder Chapman MD [facility] Medicine 10/10/2024 10:11 AM CC: JOSE Rocha POCT GLUCOSE METER UNSOLICIT ED RESULTS Collected: 10/10/2024 7:22 AM Status: UNK Source: [facility] Order Comment: Waived Testin g in the ED is performed under the ED CLIA certificate #[id number]. TYPE CODE TESTS RESULT OUT OF RANGE REFERENCE UNITS LAB 885 POCT GLUCOSE 131 High 70-105 mg/dL Result Comment: [email or web address] Performed By: #### [id number] #### [facility] ([facility]) [address] [place] [address] BASIC METABOLIC PANEL Collected: 2024 3:22 AM Status: UNK Source: [facility] TYPE CODE TESTS RESULT OUT OF RANGE REFERENCE UNITS LAB [id number] SODIUM (MMOL/L) IN SER/PLAS 141 136-145 mmol/L LAB [id number] POTASSIUM (MMOL/L) IN SER/PLAS 3.5 3.5-5.1 mmol/L LAB 8417089 CHLORIDE (MMOL/L) IN SER/PLAS 109 High 98-107 mmol/L LAB [id number] CARBON DIOXIDE, TOTAL (MMOL/L) IN SER/PLAS 24 21-31 mmol/L LAB [id number] UREA NITROGEN (MG/DL) IN SER/PLAS 55 High 7-25 mg/dL LAB [id number] CREATININE (MG/DL) IN SER/PLAS 1.46 High 0.60-1.20 mg/dL LAB 1178132 GLUCOSE (MG/DL) IN SER/PLAS 119 High 70-100 mg/dL LAB [id number] CALCIUM (MG/DL) IN SER/PLAS 8.1 Low 8.6-10.3 mg/dL LAB [id number] ANION GAP IN SER/PLAS 12 7-20 mmol/L LAB [id number] GLOMERULAR FILTRATION RATE ML/MIN/1.73 SQ M.PREDICTED 42.0 Low >60.0 mL/min/ 1.73m*2 Result Comment: [facility]???s estimated glomerular filtration rate (eGFR) will [...] affect any one group of individuals. LAB 3464024 UREA NITROGEN/CREA TININE (MASS RATIO) IN SER/PLAS 37.7 NA Performed By: #### [id number] ### # [facility] ([facility]) [address] [place] [address] HEMOGLOBIN AND HEMATOCRIT, BLOOD Collected: 10/10/2024 3:22 AM Status: UNK Source: [facility] TYPE CODE TESTS RESULT OUT OF RANGE REFERENCE UNITS LAB 4113851 HEMOGLOBIN (G/DL) IN BLOOD 8.5 Low 12.0-15.0 g/dL LAB [id number] HEMATOCRIT (%) IN BLOOD BY AUTOMATED COUNT 26.2 Low 36.0-45.0 % Performed By: #### [id number] ## ## [facility] ([facility]) [address] [place] [address] POCT GLUCOSE METER UNSOLICIT ED RESULTS Collected: 10/09/2024 9:06 PM Status: UNK Source: [facility] Order Comment: Waived Testin g in the ED is performed under the ED CLIA certificate #[id number]. TYPE CODE TESTS RESULT OUT OF RANGE REFERENCE UNITS LAB 885 POCT GLUCOSE 204 High 70-105 mg/dL Result Comment: [email or web address] Performed By: #### [id number] #### [facility] ([facility]) [address] [place] [address] 30 Observed: 10/09/2024 8:11 PM Status: COMPLETED Source: [facility] Problem: Pain - Adult Goal: Verbalizes/displays adequate comfort level or baseline comfort level Outcome: Progressing Problem: Safety - Adult Goal: Free from fall injury Outcome: Progressing Flowsheets (Taken 10/09/20241999) Free from fall injury: Assess patient frequently for physical needs Identify cognitive and physical deficits and behaviors that affect risk of falls [employer] fall precautions as indicated by assessment Educate [...] Collected: 10/09/2024 3:49 PM Status: UNK Source: [facility] Order Comment: Waived Testin g in the ED is performed under the ED CLIA certificate #[id number]. TYPE CODE TESTS RESULT OUT OF RANGE REFERENCE UNITS LAB 885 POCT GLUCOSE 312 High 70-105 mg/dL Result Comment: [email or web address] Performed By: #### [id number] #### [facility] ([facility]) [address] [place] [address] POCT GLUCOSE METER UNSOLICIT ED RESULTS Collected: 10/09/2024 11:34 AM Status: UNK Source: [facility] Order Comment: Waived Testin g in the ED is performed under the ED CLIA certificate #[id number]. TYPE CODE TESTS RESULT OUT OF RANGE REFERENCE UNITS LAB 885 POCT GLUCOSE 305 High 70-105 mg/dL Result Comment: [email or web address] Performed By: #### [id number] #### [facility] ([facility]) [address] [place] [address] PROGRESS Observed: 10/09/2024 10:41 AM Status: COMPLETED Source: [facility] continue oral antihypertensi ves PROGRESS Observed: 10/09/2024 10:41 AM Status: COMPLETED Source: [facility] BMI 44.12 --> 48.01 PROGRESS Observed: 10/09/2024 10:41 AM Status: COMPLETED Source: [facility] uncontrolled with hyperglyce jose luis due to noncompliance of insulin Normally has an insulin pump but she left at home Insulin drip was discontinued and patient switched to 50 Lantus twice daily will increase the dose today to 60 twice daily. Patient can continue her home insulin pump on discharge A1c 9.0 PROGRESS Observed: 10/09/2024 10:41 AM Status: COMPLETED Source: [facility] reports allergy/intolerance of statins Continue fenofibrate PROGRESS Observed: 10/09/2024 10:41 AM Status: COMPLETED Source: [facility] Creatinine seems at baseline PROGRESS Observed: 10/09/2024 10:41 AM Status: COMPLETED Source: [facility] monitor hemoglobin, transfus e for hemoglobin less than 7 Monitor clinically for source of bleeding PROGRESS Observed: 10/09/2024 10:41 AM Status: COMPLETED Source: [facility] continue PPI PROGRESS Observed: 10/09/2024 10:41 AM Status: COMPLETED Source: [facility] Continue rate control medica tions with Lopressor PROGRESS Observed: 10/09/2024 10:41 AM Status: COMPLETED Source: [facility] continue levothyroxine PROGRESS Observed: 10/09/2024 10:41 AM Status: COMPLETED Source: [facility] Continue treatment with ceft riaxone and doxycycline, follow-up culture results Add benadryl to use with doxycycline for allergic reaction PROGRESS Observed: 10/09/2024 10:41 AM Status: COMPLETED Source: [facility] Repeat troponin Discontinue heparin drip Perform stress test in outpatient post recovery from acute illness PROGRESS Observed: 10/09/2024 10:38 AM Status: COMPLETED Source: [facility] Hospital Medicine Daily Progress Note - 10/09/2024 10:38 AM; Room: [address] [place] [address] Admission: 10/06/2024 7:39 PM; Length of stay: 3 days THE HOSPITALIST TEAM PREFERS TO USE [employer] FOR NON-URGENT COMMUNICATION 7AM-7PM. IF I DO NOT RESPOND WITHIN 20 MINUTES OR URGENT MATTERS, PLEASE CALL THROUGH THE PICKER. FROM 7PM-7AM, PLEASE PAGE [phone](COVR). Code Status: Full Code Barriers to Discharge: [...] & Plan NSTEMI (non-ST elevated myocardial infarction) ([facility]) Repeat troponin Discontinue heparin drip Perform stress [...] fenofibrate Insulin dependent type 2 diabetes mellitus ([facility]) uncontrolled with hyperglycemia due to noncompliance of [...] Chronic kidney disease (CKD), stage III (moderate) ([facility]) Creatinine seems at baseline GERD (gastroesophageal reflux [...] LDL 121 10/07/2024 No results found for: [id number] , IRON , TIBC , C3 , C4 , BRITTANY , CANCA , ASO , PSA , CEA , CA125 , CA199 , AFP , CA153 Imaging Complete Echo (TTE) w/wo Imaging Agent, Strain, 3D, Bubble Study 1 1 [facility] Heart Station [address] [place] [address] [phone] (fax) Echocardiogram-[facility] Name: MARY JANE SCHAEFFER Study Date: 10/07/2024 02:33 PM B/P: 137 mmHg/53 mmHg HR: 77 bpm Date of : 1970 Location: [facility] Height: 63 in. Age: 54 year(s) Patient [...] small pericardial effusion. Procedure Staff Reading Group: [place] [facility] Referring Physician: RAVINDER CHAPMAN Grocery Team Member: ERMIAS Mckee Ordering Physician: JAKE BUCKLEY 12 [...] Discharge Planning Expected Dis[place] Disposition: [place] [facility] [place] Signed Ravinder Chapman MD, 3rd year [...] Observed: 10/09/2024 9:53 AM Status: COMPLETED Source: [facility] Problem: Chronic Conditions and Co-morbidities Goal: Patient's [...] Collected: 10/09/2024 7:51 AM Status: UNK Source: [facility] Order Comment: Waived Testin g in the ED is performed under the ED CLIA certificate #[id number]. TYPE CODE TESTS RESULT OUT OF RANGE REFERENCE UNITS LAB 885 POCT GLUCOSE 299 High 70-105 mg/dL Result Comment: [email or web address] Performed By: #### [id number] #### [facility] ([facility]) [address] [place] [address] BASIC METABOLIC PANEL Collected: 2024 4:09 AM Status: UNK Source: [facility] TYPE CODE TESTS RESULT OUT OF RANGE REFERENCE UNITS LAB [id number] SODIUM (MMOL/L) IN SER/PLAS 137 136-145 mmol/L LAB 2163581 POTASSIUM (MMOL/L) IN SER/PLAS 3.7 3.5-5.1 mmol/L LAB 8758222 CHLORIDE (MMOL/L) IN SER/PLAS 107 98-107 mmol/L LAB [id number] CARBON DIOXIDE, TOTAL (MMOL/L) IN SER/PLAS 20 Low 21-31 mmol/L LAB [id number] UREA NITROGEN (MG/DL) IN SER/PLAS 68 High 7-25 mg/dL LAB 2140003 CREATININE (MG/DL) IN SER/PLAS 1.67 High 0.60-1.20 mg/dL LAB 4253013 GLUCOSE (MG/DL) IN SER/PLAS 303 High 70-100 mg/dL LAB 2416160 CALCIUM (MG/DL) IN SER/PLAS 7.9 Low 8.6-10.3 mg/dL LAB 3905791 ANION GAP IN SER/PLAS 14 7-20 mmol/L LAB [id number] GLOMERULAR FILTRATION RATE ML/MIN/1.73 SQ M.PREDICTED 35.7 Low >60.0 mL/min/ 1.73m*2 Result Comment: [facility]???s estimated glomerular filtration rate (eGFR) will [...] affect any one group of individuals. LAB 8353478 UREA NITROGEN/CREA TININE (MASS RATIO) IN SER/PLAS 40.7 NA Performed By: #### [id number] ### # [facility] ([facility]) [address] [place] [address] CBC Collected: 10/09/2024 4:09 AM Status: UN K Source: [facility] TYPE CODE TESTS RESULT OUT OF RANGE REFERENCE UNITS LAB 2057895 LEUKOCYTES(10*3/ U L) IN BLOOD BY AUTOMATED COUNT 4.95 4.00-10.60 10*3/uL LAB 1492816 ERYTHROCYTES (10*6/UL) IN BLOOD BY AUTOMATED COUNT 2.73 Low 3.80-5.00 10*6/uL LAB 3219967 HEMOGLOBIN (G/DL ) IN BLOOD 8.4 Low 12.0-15.0 g/dL LAB 8593777 HEMATOCRIT (%) I N BLOOD BY AUTOMATED COUNT 25.9 Low 36.0-45.0 % LAB 6790412 ERYTHROCYTE MEAN CORPUSCULAR VOLUME (FL) BY AUTOMATED COUNT 94.9 82.0-98.0 fL LAB 2538350 ERYTHROCYTE MEAN CORPUSCULAR HEMOGLOBIN (PG) BY AUTOMATED COUNT 30.8 27.0-33.0 pg LAB 2937105 ERYTHROCYTE MEAN CORPUSCULAR HEMOGLOBIN CONCENTRATION (G/DL) BY AUTOMATED 32.4 32.0-35.0 g/dL LAB 4643704 ERYTHROCYTE DISTRIBUTION WIDTH (RATIO) BY AUTOMATED COUNT 15.2 High 11.5-15.0 % LAB 1446535 PLATELETS (10*3/UL) IN BLOOD AUTOMATED COUNT 146 Low 150-400 10*3/uL Performed By: #### [id number] ## ## [facility] ([facility]) [address] [place] [address] POCT GLUCOSE METER UNSOLICIT ED RESULTS Collected: 10/08/2024 8:31 PM Status: UNK Source: [facility] Order Comment: Waived Testin g in the ED is performed under the ED CLIA certificate #[id number]. TYPE CODE TESTS RESULT OUT OF RANGE REFERENCE UNITS LAB 885 POCT GLUCOSE 285 High 70-105 mg/dL Result Comment: [email or web address] Performed By: #### [id number] #### [facility] ([facility]) [address] [place] [address] 30 Observed: 10/08/2024 7:58 PM Status: COMPLETED Source: [facility] Problem: Pain - Adult Goal: Verbalizes/displays adequate comfort level or baseline comfort level Outcome: Progressing Problem: Safety - Adult Goal: Free from fall injury Outcome: Progressing Flowsheets (Taken 10/08/2024 1900) Free from fall injury: Assess patient frequently for physical needs Identify cognitive and physical deficits and behaviors that affect risk of falls [employer] fall precautions as indicated by assessment Educate [...] Observed: 10/08/2024 6:42 PM Status: COMPLETED Source: [facility] Daily Case Management Update Multidisciplinary rounds have [...] Collected: 10/08/2024 4:08 PM Status: UNK Source: [facility] Order Comment: Waived Testin g in the ED is performed under the ED CLIA certificate #[id number]. TYPE CODE TESTS RESULT OUT OF RANGE REFERENCE UNITS LAB 885 POCT GLUCOSE 217 High 70-105 mg/dL Result Comment: [email or web address] Performed By: #### [id number] #### [facility] ([facility]) [address] [place] [address] POCT GLUCOSE METER UNSOLICIT ED RESULTS Collected: 10/08/2024 1:01 PM Status: UNK Source: [facility] Order Comment: Waived Testin g in the ED is performed under the ED CLIA certificate #[id number]. TYPE CODE TESTS RESULT OUT OF RANGE REFERENCE UNITS LAB 885 POCT GLUCOSE 175 High 70-105 mg/dL Result Comment: [email or web address] Performed By: #### [id number] #### [facility] ([facility]) [address] [place] [address] POCT GLUCOSE METER UNSOLICIT ED RESULTS Collected: 10/08/2024 11:59 AM Status: UNK Source: [facility] Order Comment: Waived Testin g in the ED is performed under the ED CLIA certificate #[id number]. TYPE CODE TESTS RESULT OUT OF RANGE REFERENCE UNITS LAB 885 POCT GLUCOSE 225 High 70-105 mg/dL Result Comment: [email or web address] Performed By: #### [id number] #### [facility] ([facility]) [address] [place] [address] POCT GLUCOSE METER UNSOLICIT ED RESULTS Collected: 10/08/2024 11:15 AM Status: UNK Source: [facility] Order Comment: Waived Testin g in the ED is performed under the ED CLIA certificate #[id number]. TYPE CODE TESTS RESULT OUT OF RANGE REFERENCE UNITS LAB 885 POCT GLUCOSE 213 High 70-105 mg/dL Result Comment: [email or web address] Performed By: #### [id number] #### [facility] ([facility]) [address] [place] [address] PROGRESS Observed: 10/08/2024 10:17 AM Status: COMPLETED Source: [facility] reports allergy/intolerance of statins Continue fenofibrate PROGRESS Observed: 10/08/2024 10:17 AM Status: COMPLETED Source: [facility] uncontrolled with hyperglyce jose luis due to noncompliance of insulin Normally has an insulin pump but she left at home Will start insulin drip to evaluate insulin requirement and then transition to basal/bolus regimen check hemoglobin A1c Discontinue insulin drip 2 hours after first dose of glargine (Lantus) 50 units BID PROGRESS Observed: 10/08/2024 10:17 AM Status: COMPLETED Source: [facility] BMI 44.12 --> 48.01 PROGRESS Observed: 10/08/2024 10:17 AM Status: COMPLETED Source: [facility] continue levothyroxine PROGRESS Observed: 10/08/2024 10:17 AM Status: COMPLETED Source: [facility] continue PPI PROGRESS Observed: 10/08/2024 10:17 AM Status: COMPLETED Source: [facility] monitor hemoglobin, transfus e for hemoglobin less than 7 Monitor clinically for source of bleeding PROGRESS Observed: 10/08/2024 10:17 AM Status: COMPLETED Source: [facility] baseline unclear, monitor re nal function, monitor I's and O's PROGRESS Observed: 10/08/2024 10:17 AM Status: COMPLETED Source: [facility] continue oral antihypertensi ves PROGRESS Observed: 10/08/2024 10:17 AM Status: COMPLETED Source: [facility] Continue treatment with ceft riaxone and doxycycline, follow-up culture results Add benadryl to use with doxycycline for allergic reaction PROGRESS Observed: 10/08/2024 10:17 AM Status: COMPLETED Source: [facility] Repeat troponin Discontinue heparin drip Perform stress test in outpatient post recovery from acute illness POCT GLUCOSE METER UNSOLICIT ED RESULTS Collected: 10/08/2024 10:12 AM Status: UNK Source: [facility] Order Comment: Waived Testin g in the ED is performed under the ED CLIA certificate #[id number]. TYPE CODE TESTS RESULT OUT OF RANGE REFERENCE UNITS LAB 885 POCT GLUCOSE 201 High 70-105 mg/dL Result Comment: [email or web address] Performed By: #### [id number] #### [facility] ([facility]) [address] [place] [address] 30 Observed: 10/08/2024 9:50 AM Status: COMPLETED Source: [facility] The patient is Moderately Un stable - [...] Collected: 10/08/2024 9:06 AM Status: UNK Source: [facility] Order Comment: Waived Testin g in the ED is performed under the ED CLIA certificate #[id number]. TYPE CODE TESTS RESULT OUT OF RANGE REFERENCE UNITS LAB 885 POCT GLUCOSE 162 High 70-105 mg/dL Result Comment: [email or web address] Performed By: #### [id number] #### [facility] ([facility]) [address] [place] [address] PROGRESS Observed: 10/08/2024 8:03 AM Status: COMPLETED Source: [facility] Medicine Daily Progress Note - 10/08/2024 8:04 AM; Room: [address] [place] [address] Admission: 10/06/2024 7:39 PM; Length of stay: 2 days THE HOSPITALIST TEAM PREFERS TO USE [employer] FOR NON-URGENT COMMUNICATION 7AM-7PM. IF I DO NOT RESPOND WITHIN 20 MINUTES OR URGENT MATTERS, PLEASE CALL THROUGH THE PICKER. FROM 7PM-7AM, PLEASE PAGE [phone](COVR). Code Status: Full Code Barriers to Discharge: [...] & Plan NSTEMI (non-ST elevated myocardial infarction) ([facility]) Repeat troponin Discontinue heparin drip Perform stress [...] fenofibrate Insulin dependent type 2 diabetes mellitus ([facility]) uncontrolled with hyperglycemia due to noncompliance of [...] Chronic kidney disease (CKD), stage III (moderate) ([facility]) baseline unclear, monitor renal function, monitor I's [...] LDL 121 10/07/2024 No results found for: [id number] , IRON , TIBC , C3 , C4 , BRITTANY , CANCA , ASO , PSA , CEA , CA125 , CA199 , AFP , CA153 Imaging Complete Echo (TTE) w/wo Imaging Agent, Strain, 3D, Bubble Study 1 1 [facility] Heart Station [address] [place] [address] [phone] (fax) Echocardiogram-[facility] Name: MARY JANE SANTOS Study Date: 10/07/2024 02:33 PM B/P: 137 mmHg/53 mmHg HR: 77 bpm Date of : 1970 Location: [facility] Height: 63 in. Age: 54 year(s) Patient [...] small pericardial effusion. 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 Order Comment: Waived Testin g in the ED is performed under the ED CLIA certificate #[id number]. TYPE CODE TESTS RESULT OUT OF RANGE REFERENCE UNITS LAB 885 POCT GLUCOSE 182 High 70-105 mg/dL Result Comment: [email or web address] Performed By: #### [id number] #### [facility] ([facility]) [address] [place] [address] POCT GLUCOSE METER UNSOLICIT ED RESULTS Collected: 10/08/2024 7:03 AM Status: UNK Source: [facility] Order Comment: Waived Testin g in the ED is performed under the ED CLIA certificate #[id number]. TYPE CODE TESTS RESULT OUT OF RANGE REFERENCE UNITS LAB 885 POCT GLUCOSE 220 High 70-105 mg/dL Result Comment: [email or web address] Performed By: #### [id number] #### [facility] ([facility]) [address] [place] [address] PROGRESS Observed: 10/08/2024 6:25 AM Status: COMPLETED Source: [facility] Attestation signed by Jake Buckley MD at [...] Value Ventricular Rate 78 Atrial Rate 78 IL Interval 138 QRS DURATION 88 QT Interval 398 QTC CALCULATION(BAZETT) 453 P [place] 62 R-[place] 83 T Wave [place] 42 Impression Normal sinus rhythm Nonspecific T wave abnormality Abnormal ECG When compared with ECG of 09-NOV-2020 07:35, Nonspecific T wave abnormality now evident in Anterior leads Confirmed by Steve FABIAN, L.S. (2) on 10/07/2024 12:01:23 PM No results found for: CKTOTAL , CKMB , CKMBINDEX , TROPONINI Complete Echo (TTE) w/wo Imaging Agent, Strain, 3D, Bubble Study Result Date: 10/07/2024 1 1 [facility] Heart Station [address] [place] [address] [phone] (fax) Echocardiogram-[facility] Name: MARY JANE SCHAEFFER Study Date: 10/07/2024 02:33 PM B/P: 137 mmHg/53 mmHg HR: 77 bpm Date of : 1970 Location: [facility] Height: 63 in. Age: 54 year(s) Patient [...] small pericardial effusion. Procedure Staff Reading Group: [facility] Referring Physician: RAVINDER CHAPMAN Grocery Team Member: ERMIAS Mckee Ordering Physician: JAKE BUCKLEY No nuclear medicine results found for the past 12 months Relevant Imaging Results Complete Echo (TTE) w/wo Imaging Agent, Strain, 3D, Bubble Study 1 1 [facility] Heart Station [address] [place] [address] [phone] (fax) Echocardiogram-[facility] Name: MARY JANE SANTOS Study Date: 10/07/2024 02:33 PM B/P: 137 mmHg/53 mmHg HR: 77 bpm Date of : 1970 Location: [facility] Height: 63 in. Age: 54 year(s) Patient [...] small pericardial effusion. Procedure Staff Reading Group: [facility] Referring Physician: RAVINDER CHAPMAN Grocery Team Member: ERMIAS Mckee Ordering Physician: JAKE BUCKLEY 12 [...] Collected: 10/08/2024 6:03 AM Status: UNK Source: [facility] Order Comment: Waived Testin g in the ED is performed under the ED CLIA certificate #[id number]. TYPE CODE TESTS RESULT OUT OF RANGE REFERENCE UNITS LAB 885 POCT GLUCOSE 233 High 70-105 mg/dL Result Comment: [email or web address] Performed By: #### [id number] #### [facility] ([facility]) [address] [place] [address] POCT GLUCOSE METER UNSOLICIT ED RESULTS Collected: 10/08/2024 5:08 AM Status: UNK Source: [facility] Order Comment: Waived Testin g in the ED is performed under the ED CLIA certificate #[id number]. TYPE CODE TESTS RESULT OUT OF RANGE REFERENCE UNITS LAB 885 POCT GLUCOSE 209 High 70-105 mg/dL Result Comment: [email or web address] Critical Value Noted Performed By: #### [id number] #### [facility] ([facility]) [address] [place] [address] HEMOGLOBIN AND HEMATOCRIT, BLOOD Collected: 10/08/2024 4:44 AM Status: UNK Source: [facility] TYPE CODE TESTS RESULT OUT OF RANGE REFERENCE UNITS LAB [id number] HEMOGLOBIN (G/DL) IN BLOOD 7.8 Low 12.0-15.0 g/dL LAB 7553261 HEMATOCRIT (%) IN BLOOD BY AUTOMATED COUNT 24.7 Low 36.0-45.0 % Performed By: #### [id number] ## ## [facility] ([facility]) [address] [place] [address] BASIC METABOLIC PANEL Collected: 2024 4:44 AM Status: UNK Source: [facility] TYPE CODE TESTS RESULT OUT OF RANGE REFERENCE UNITS LAB 4639563 SODIUM (MMOL/L) IN SER/PLAS 140 136-145 mmol/L LAB 4742041 POTASSIUM (MMOL/L) IN SER/PLAS 4.1 3.5-5.1 mmol/L LAB 6190289 CHLORIDE (MMOL/L) IN SER/PLAS 109 High 98-107 mmol/L LAB 8294221 CARBON DIOXIDE, TOTAL (MMOL/L) IN SER/PLAS 21 21-31 mmol/L LAB 7930761 UREA NITROGEN (MG/DL) IN SER/PLAS 65 High 7-25 mg/dL LAB 3945766 CREATININE (MG/DL) IN SER/PLAS 1.78 High 0.60-1.20 mg/dL LAB 1146628 GLUCOSE (MG/DL) IN SER/PLAS 212 High 70-100 mg/dL LAB 8741468 CALCIUM (MG/DL) IN SER/PLAS 8.3 Low 8.6-10.3 mg/dL LAB 9113829 ANION GAP IN SER/PLAS 14 7-20 mmol/L LAB 2431395 GLOMERULAR FILTRATION RATE ML/MIN/1.73 SQ M.PREDICTED 33.1 Low >60.0 mL/min/ 1.73m*2 Result Comment: [facility]???s estimated glomerular filtration rate (eGFR) will [...] affect any one group of individuals. LAB 1495323 UREA NITROGEN/CREA TININE (MASS RATIO) IN SER/PLAS 36.5 NA Performed By: #### [id number] ### # [facility] ([facility]) [address] [place] [address] POCT GLUCOSE METER UNSOLICIT ED RESULTS Collected: 10/08/2024 3:45 AM Status: UNK Source: [facility] Order Comment: Waived Testin g in the ED is performed under the ED CLIA certificate #[id number]. TYPE CODE TESTS RESULT OUT OF RANGE REFERENCE UNITS LAB 885 POCT GLUCOSE 251 High 70-105 mg/dL Result Comment: [email or web address] Performed By: #### [id number] #### [facility] ([facility]) [address] [place] [address] POCT GLUCOSE METER UNSOLICIT ED RESULTS Collected: 10/08/2024 2:48 AM Status: UNK Source: [facility] Order Comment: Waived Testin g in the ED is performed under the ED CLIA certificate #[id number]. TYPE CODE TESTS RESULT OUT OF RANGE REFERENCE UNITS LAB 885 POCT GLUCOSE 256 High 70-105 mg/dL Result Comment: [email or web address] Performed By: #### [id number] #### [facility] ([facility]) [address] [place] [address] POCT GLUCOSE METER UNSOLICIT ED RESULTS Collected: 10/08/2024 1:47 AM Status: UNK Source: [facility] Order Comment: Waived Testin g in the ED is performed under the ED CLIA certificate #[id number]. TYPE CODE TESTS RESULT OUT OF RANGE REFERENCE UNITS LAB 885 POCT GLUCOSE 203 High 70-105 mg/dL Result Comment: [email or web address] Performed By: #### [id number] #### [facility] ([facility]) [address] [place] [address] POCT GLUCOSE METER UNSOLICIT ED RESULTS Collected: 10/08/2024 1:15 AM Status: UNK Source: [facility] Order Comment: Waived Testin g in the ED is performed under the ED CLIA certificate #[id number]. TYPE CODE TESTS RESULT OUT OF RANGE REFERENCE UNITS LAB 885 POCT GLUCOSE 188 High 70-105 mg/dL Result Comment: [email or web address] Performed By: #### [id number] #### [facility] ([facility]) [address] [place] [address] POCT GLUCOSE METER UNSOLICIT ED RESULTS Collected: 10/08/2024 12:38 AM Status: UNK Source: [facility] Order Comment: Waived Testin g in the ED is performed under the ED CLIA certificate #[id number]. TYPE CODE TESTS RESULT OUT OF RANGE REFERENCE UNITS LAB 885 POCT GLUCOSE 199 High 70-105 mg/dL Result Comment: [email or web address] Performed By: #### [id number] #### [facility] ([facility]) [address] [place] [address] POCT GLUCOSE METER UNSOLICIT ED RESULTS Collected: 10/07/2024 11:40 PM Status: UNK Source: [facility] Order Comment: Waived Testin g in the ED is performed under the ED CLIA certificate #[id number]. TYPE CODE TESTS RESULT OUT OF RANGE REFERENCE UNITS LAB 885 POCT GLUCOSE 263 High 70-105 mg/dL Result Comment: [email or web address] Critical Value Noted Performed By: #### [id number] #### [facility] ([facility]) [address] [place] [address] POCT GLUCOSE METER UNSOLICIT ED RESULTS Collected: 10/07/2024 10:35 PM Status: UNK Source: [facility] Order Comment: Waived Testin g in the ED is performed under the ED CLIA certificate #[id number]. TYPE CODE TESTS RESULT OUT OF RANGE REFERENCE UNITS LAB 885 POCT GLUCOSE 279 High 70-105 mg/dL Result Comment: [email or web address] Performed By: #### [id number] #### [facility] ([facility]) [address] [place] [address] POCT GLUCOSE METER UNSOLICIT ED RESULTS Collected: 10/07/2024 9:32 PM Status: UNK Source: [facility] Order Comment: Waived Testin g in the ED is performed under the ED CLIA certificate #[id number]. TYPE CODE TESTS RESULT OUT OF RANGE REFERENCE UNITS LAB 885 POCT GLUCOSE 289 High 70-105 mg/dL Result Comment: [email or web address] Performed By: #### [id number] #### [facility] ([facility]) [address] [place] [address] 30 Observed: 10/07/2024 9:02 PM Status: COMPLETED Source: [facility] Problem: Pain - Adult Goal: Verbalizes/displays adequate comfort level or baseline comfort level Outcome: Progressing Problem: Safety - Adult Goal: Free from fall injury Outcome: Progressing Flowsheets (Taken 10/07/20241999) Free from fall injury: Assess patient frequently for physical needs Identify cognitive and physical deficits and behaviors that affect risk of falls [employer] fall precautions as indicated by assessment Educate [...] Collected: 10/07/2024 8:33 PM Status: UNK Source: [facility] Order Comment: Waived Testin g in the ED is performed under the ED CLIA certificate #[id number]. TYPE CODE TESTS RESULT OUT OF RANGE REFERENCE UNITS LAB 885 POCT GLUCOSE 277 High 70-105 mg/dL Result Comment: [email or web address] Performed By: #### [id number] #### [facility] ([facility]) [address] [place] [address] POCT GLUCOSE METER UNSOLICIT ED RESULTS Collected: 10/07/2024 7:30 PM Status: UNK Source: [facility] Order Comment: Waived Testin g in the ED is performed under the ED CLIA certificate #[id number]. TYPE CODE TESTS RESULT OUT OF RANGE REFERENCE UNITS LAB 885 POCT GLUCOSE 319 High 70-105 mg/dL Result Comment: [email or web address] Performed By: #### [id number] #### [facility] ([facility]) [address] [place] [address] POCT GLUCOSE METER UNSOLICIT ED RESULTS Collected: 10/07/2024 6:33 PM Status: UNK Source: [facility] Order Comment: Waived Testin g in the ED is performed under the ED CLIA certificate #[id number]. TYPE CODE TESTS RESULT OUT OF RANGE REFERENCE UNITS LAB 885 POCT GLUCOSE 362 High 70-105 mg/dL Result Comment: [email or web address] Performed By: #### [id number] #### [facility] ([facility]) [address] [facility] [place] [address] POCT GLUCOSE METER UNSOLICIT ED RESULTS Collected: 10/07/2024 5:41 PM Status: UNK Source: [facility] Order Comment: Waived Testin g in the ED is performed under the ED CLIA certificate #[id number]. TYPE CODE TESTS RESULT OUT OF RANGE REFERENCE UNITS LAB 885 POCT GLUCOSE 375 High 70-105 mg/dL Result Comment: [email or web address] Performed By: #### [id number] #### [facility] ([facility]) [address] [place] [address] POCT GLUCOSE METER UNSOLICIT ED RESULTS Collected: 10/07/2024 4:40 PM Status: UNK Source: [facility] Order Comment: Waived Testin g in the ED is performed under the ED CLIA certificate #[id number]. TYPE CODE TESTS RESULT OUT OF RANGE REFERENCE UNITS LAB 885 POCT GLUCOSE 406 High 70-105 mg/dL Result Comment: [email or web address] Performed By: #### [id number] #### [facility] ([facility]) [address] [place] [address] ANTI-XA (HEPARIN LEVEL) Collected: 10/07/2024 4:08 PM Status: UNK Source: [facility] Order Comment: Check anti-Xa level every 6 hours while on heparin infusion, or per protocol. TYPE CODE TESTS RESULT OUT OF RANGE REFERENCE UNITS LAB [id number] HEPARIN UNFRACTIONATED (U/ML) IN PPP BY CHROMOGENIC METHOD 0.65 0.3-0.7 IU/mL Result Comment: Rivaroxaban and Apixaban will interfere with the anti Xa assay used to monitor UFH and LMWH. Performed By: #### [id number] ## ## [facility] ([facility]) [address] [place] [address] POCT GLUCOSE METER UNSOLICIT ED RESULTS Collected: 10/07/2024 3:38 PM Status: UNK Source: [facility] Order Comment: Waived Testin g in the ED is performed under the ED CLIA certificate #[id number]. TYPE CODE TESTS RESULT OUT OF RANGE REFERENCE UNITS LAB 885 POCT GLUCOSE 330 High 70-105 mg/dL Result Comment: [email or web address] Performed By: #### [id number] #### [facility] [facility] ([facility]) [address] [place] [address] POCT GLUCOSE METER UNSOLICIT ED RESULTS Collected: 10/07/2024 2:15 PM Status: UNK Source: [facility] Order Comment: Waived Testin g in the ED is performed under the ED CLIA certificate #[id number]. TYPE CODE TESTS RESULT OUT OF RANGE REFERENCE UNITS LAB 885 POCT GLUCOSE 374 High 70-105 mg/dL Result Comment: [email or web address] Performed By: #### [id number] #### [facility] ([facility]) [address] [place] [address] POCT GLUCOSE METER UNSOLICIT ED RESULTS Collected: 10/07/2024 1:35 PM Status: UNK Source: [facility] Order Comment: Waived Testin g in the ED is performed under the ED CLIA certificate #[id number]. TYPE CODE TESTS RESULT OUT OF RANGE REFERENCE UNITS LAB 885 POCT GLUCOSE 401 High 70-105 mg/dL Result Comment: [email or web address] Performed By: #### [id number] #### [facility] ([facility]) [address] [place] [address] POCT GLUCOSE METER UNSOLICIT ED RESULTS Collected: 10/07/2024 12:25 PM Status: UNK Source: [facility] Order Comment: Waived Testin g in the ED is performed under the ED CLIA certificate #[id number]. TYPE CODE TESTS RESULT OUT OF RANGE REFERENCE UNITS LAB 885 POCT GLUCOSE 447 High 70-105 mg/dL Result Comment: [email or web address] Performed By: #### [id number] #### [facility] ([facility]) [address] [place] [address] LIPID PANEL Collected: 10/07/2024 12:04 PM Status: U NK Source: [facility] TYPE CODE TESTS RESULT OUT OF RANGE REFERENCE UNITS LAB [id number] TRIGLYCERIDE (MG/DL) IN SER/PLAS 221 High <150 mg/dL Result Comment: TRIGLYCERIDE REFERENCE RANGE: 20 YEARS AND OLDER CARDIOVASCULAR RISK LESS THAN 150 mg/dL LOW RISK 150 TO 199 mg/dL BORDERLINE RISK 200 mg/dL AND GREATER HIGH RISK LAB 6611969 CHOLESTEROL (MG/DL) IN SER/PLAS 147 120-200 mg/dL LAB [id number] CHOLESTEROL IN LDL (MG/DL) IN SERUM OR PLASMA BY CALCULATION 77 0-160 mg/dL LAB 0836104 CHOLESTEROL IN HDL (MG/DL) IN SER/PLAS 26 23-92 mg/dL LAB 7750954 NON HDL CHOL. (LDL+VLDL) 121 NA LAB [id number] TOTAL VLDL-C 44 High 0-40 mg/dL LAB 2481 CHOL/HDL 5.7 mg/dL Performed By: #### [id number] ### # [facility] ([facility]) [address] [place] [address] HIGH SENSITIVITY TROPONIN I Collected: 10/07/2024 12:04 PM Status: UNK Source: [facility] TYPE CODE TESTS RESULT OUT OF RANGE REFERENCE UNITS LAB 3630 HS TROPONIN I (NG/L) 53 High Alert <15 ng/L Performed By: #### [id number] # ### [facility] ([facility]) [address] [place] [address] ANTI-XA (HEPARIN LEVEL) Collected: 10/07/2024 12:04 P M Status: UNK Source: [facility] Order Comment: Check anti-Xa level every 6 hours while on heparin infusion, or per protocol. TYPE CODE TESTS RESULT OUT OF RANGE REFERENCE UNITS LAB 1676067 HEPARIN UNFRACTIONATED (U/ML) IN PPP BY CHROMOGENIC METHOD 0.57 0.3-0.7 IU/mL Result Comment: Rivaroxaban and Apixaban will interfere with the anti Xa assay used to monitor UFH and LMWH. Performed By: #### [id number] ## ## [facility] ([facility]) [address] [place] [address] PROGRESS Observed: 10/07/2024 11:13 AM Status: COMPLETED Source: [facility] Attestation signed by Erin Umaña RD at [...] Adult Nutrition Assessment: Name: Mary Jane Foy [facility] Date: 1970 Date of Visit: 10/07/24 Admission Dx: NSTEMI (non-ST elevated myocardial infarction) ([facility]) [I21.4] Reason for assessment: high risk (wt and po intake) Information obtained from: patient, medical record, and nursing Past Medical History: Diagnosis Date Abnormal ECG Asthma Diabetes mellitus ([facility]) Hyperlipidemia Current Medications: allopurinol, 300 mg, oral, [...] ideal body weight (52.3 kg) Calorie needs: 6398-5804 kcals/day based on Equation: 25-30 kcal/kg Protein [...] of Nutrition and Dietetics (AND) and the [place] Society of Enteral and Parenteral Nutrition (ASPEN). [...] To reach the Clinical Dietitian, please utilize [employer] chat Friday-Friday from 8AM-4PM or call extension [phone]. For weekends (Friday-Friday) and holidays, the Clinical Dietitian can be reached via pager ([phone]) from 9AM-3PM. The Clinical Nutrition Department is unable to respond to [employer] chat messages on Sundays and s. POCT GLUCOSE METER UNSOLICIT ED RESULTS Collected: 10/07/2024 10:44 AM Status: UNK Source: [facility] Order Comment: Waived Testin g in the ED is performed under the ED CLIA certificate #[id number]. TYPE CODE TESTS RESULT OUT OF RANGE REFERENCE UNITS LAB 885 POCT GLUCOSE 428 High 70-105 mg/dL Result Comment: [email or web address] Performed By: #### [id number] #### [facility] ([facility]) [address] [place] [address] PROGRESS Observed: 10/07/2024 10:34 AM Status: COMPLETED Source: [facility] monitor hemoglobin, transfus e for hemoglobin less than 7 Monitor clinically for source of bleeding PROGRESS Observed: 10/07/2024 10:34 AM Status: COMPLETED Source: [facility] continue PPI PROGRESS Observed: 10/07/2024 10:34 AM Status: COM PLETED Source: [facility] BMI 44.12 PROGRESS Observed: 10/07/2024 10:34 AM Status: COMPLETED Source: [facility] uncontrolled with hyperglyce jose luis due to noncompliance of insulin Normally has an insulin pump but she left at home Will start insulin drip to evaluate insulin requirement and then transition to basal/bolus regimen check hemoglobin A1c PROGRESS Observed: 10/07/2024 10:34 AM Status: COMPLETED Source: [facility] Continue treatment with ceft riaxone and doxycycline, follow-up culture results Add benadryl to use with doxycycline for allergic reaction Obtain chest X-ray PROGRESS Observed: 10/07/2024 10:34 AM Status: COMPLETED Source: [facility] baseline unclear, monitor re nal function, monitor I's and O's PROGRESS Observed: 10/07/2024 10:34 AM Status: COMPLETED Source: [facility] continue oral antihypertensi ves PROGRESS Observed: 10/07/2024 10:34 AM Status: COMPLETED Source: [facility] reports allergy/intolerance of statins Continue fenofibrate PROGRESS Observed: 10/07/2024 10:34 AM Status: COMPLETED Source: [facility] continue levothyroxine PROGRESS Observed: 10/07/2024 10:34 AM Status: COMPLETED Source: [facility] Repeat troponin Continue heparin drip Cardiology consult PROGRESS Observed: 10/07/2024 10:14 AM Status: COMPLETED Source: [facility] Hospital Medicine Daily Progress Note - 10/07/2024 10:16 AM; Room: [address] [place] [address] Admission: 10/06/2024 7:39 PM; Length of stay: 1 days THE HOSPITALIST TEAM PREFERS TO USE [employer] FOR NON-URGENT COMMUNICATION 7AM-7PM. IF I DO NOT RESPOND WITHIN 20 MINUTES OR URGENT MATTERS, PLEASE CALL THROUGH THE PICKER. FROM 7PM-7AM, PLEASE PAGE [phone](COVR). Code Status: Full Code Barriers to Discharge: IV heparin, insulin, ceftriaxone and doxycyline Expected Discharge Date: 10/09/2024 Discharge Destination: home Overview Patient is seen for evaluation and management of right lower lobe pneumonia, NSTEMI, type II diabetes mellitus. [facility] 54 y.o female presenting with [...] & Plan NSTEMI (non-ST elevated myocardial infarction) ([facility]) Repeat troponin Continue heparin drip Cardiology consult [...] fenofibrate Insulin dependent type 2 diabetes mellitus ([facility]) uncontrolled with hyperglycemia due to noncompliance of insulin Normally has an insulin pump but she left at home Will start insulin drip to evaluate insulin requirement and then transition to basal/bolus regimen check hemoglobin A1c Class 3 obesity BMI 44.12 Essential hypertension continue oral antihypertensives History of supraventricular tachycardia Chronic kidney disease (CKD), stage III (moderate) ([facility]) baseline unclear, monitor renal function, monitor I's [...] , FREET4 , CORTISOL , FEV1 , PPN4TLA , DLCO , RVSP , HDL , LDL No results found for: [id number] , IRON , TIBC , C3 , C4 , BRITTANY , CANCA , ASO , PSA , CEA , CA125 , CA199 , AFP , CA153 Imaging XR knee 3 views left Narrative: [facility] Department of Radiology [address] [place] [phone] Patient Name: MARY JANE SCHAEFFER : 1970 Sex: F Age: Race: White^White Pt. Location: 84 Patient Status: O Ordered Date: 11/24/2017 11:25:00 AM Completed Date: 11/24/2017 11:28 AM Requesting Provider: RODRIGO ABREU Attending Provider: RODRIGO ABREU Report Copy To: Signs & Symptoms: M25.562 Pain in left knee I10 History: [place] Comments: , Views (X-RAY, KNEE): AP, Lateral, [place] , Weight Bearing?: Y , With Magnification Marker?: N , Views (X-RAY, KNEE): AP, Lateral, [place] , Weight Bearing?: Y , With Magnification [...] System PROTOCOL: AP(PA) view was obtained. (accession [id number]), AP,Lateral and Tangential views were obtained. (accession [id number]) COMPARISON: None FINDINGS: Pelvis: Moderate bilateral hip osteoarthritis with mild peritrochanteric heterotopic ossifications. Left knee: Severe medial weightbearing osteoarthritis with joint effusion and essentially complete joint space loss. Incidental broken needle foreign body along the anterolateral soft tissues of proximal lower leg Impression: 1. Moderate bilateral hip osteoarthritis 2. Severe medial weightbearing knee arthritis Electronically signed by:Elham Bernard. Transcribed by: [email or web address], User Resident: Electronically Signed by: ELHAM BERNARD @ 11/24/2017 12:54 PM XR pelvis 1 or 2 views Narrative: [facility] Department of Radiology [address] [place] [phone] Patient Name: MARY JANE SCHAEFFER : 1970 Sex: F Age: Race: White^White Pt. Location: Patient Status: O Ordered Date: 11/24/2017 11:25:00 AM Completed Date: 11/24/2017 11:28 AM Requesting Provider: RODRIGO ABREU Attending Provider: RODRIGO ABREU Report Copy To: Signs & Symptoms: M25.562 Pain in left knee I10 History: [place] Comments: , Views (X-RAY, PELVIS): AP , [...] System PROTOCOL: AP(PA) view was obtained. (accession [id number]), AP,Lateral and Tangential views were obtained. (accession [id number]) COMPARISON: None FINDINGS: Pelvis: Moderate bilateral hip osteoarthritis with mild peritrochanteric heterotopic ossifications. Left knee: Severe medial weightbearing osteoarthritis with joint effusion and essentially complete joint space loss. Incidental broken needle foreign body along the anterolateral soft tissues of proximal lower leg Impression: 1. Moderate bilateral hip osteoarthritis 2. Severe medial weightbearing knee arthritis Electronically signed by:Elham Bernard. Transcribed by: [email or web address], User Resident: Electronically Signed by: ELHAM BERNARD @ 11/24/2017 12:54 PM Discharge Planning Expected Discharge Disposition: [place] [facility] Signed Imer Sherman, 3rd year medical student [employer] [facility] [employer] [facility] Medicine 10/07/2024 10:16 AM As the teaching physician, I have personally performed or re-performed the history of present illness, physical exam and medical decision-making activities of the encounter and verified the medical student's documentation. I made pertinent changes as necessary to ensure accurate documentation. There may be additional comments below. PROGRESS Observed: 10/07/2024 9:58 AM Status: COMPLETED Source: [facility] discharge planning: to Home with [facility] resuming services PC received from Gisela at [facility]; Patient is reported to be active on their services. [facility] added to AVS and Ru[facility]/bedside nurse notified POCT GLUCOSE METER UNSOLICIT ED RESULTS Collected: 10/07/2024 9:41 AM Status: UNK Source: [facility] Order Comment: Waived Testin g in the ED is performed under the ED CLIA certificate #[id number]. TYPE CODE TESTS RESULT OUT OF RANGE REFERENCE UNITS LAB 885 POCT GLUCOSE 470 High 70-105 mg/dL Result Comment: [email or web address] Performed By: #### [id number] #### [facility] ([facility]) [address] [place] [address] 30 Observed: 10/07/2024 9:32 AM Status: COMPLETED Source: [facility] Problem: Pain - Adult Goal: Verbalizes/displays adequate [...] and behaviors that affect risk of falls [employer] fall precautions as indicated by assessment Educate [...] Observed: 10/07/2024 9:27 AM Status: COMPLETED Source: [facility] Attestation signed by Jake Buckley MD at [...] history: Denies. 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 Last surface echo: EF 60-65%, reduced [...] Value Ventricular Rate 78 Atrial Rate 78 IL Interval 138 QRS DURATION 88 QT Interval 398 QTC CALCULATION(BAZETT) 453 P [place] 62 R-[place] 83 T Wave [place] 42 Impression Normal sinus rhythm Nonspecific T wave abnormality Abnormal ECG When compared with ECG of 09-NOV-2020 07:35, Nonspecific T wave abnormality now evident in Anterior leads Confirmed by Steve FABIAN, L.S. (2) on 10/07/2024 12:01:23 PM No results found for: CKTOTAL , CKMB , CKMBINDEX , TROPONINI Complete Echo (TTE) w/wo Imaging Agent, Strain, 3D, Bubble Study Result Date: 10/07/2024 1 1 [facility] Heart Station [address] [place] [address] [phone] (fax) Echocardiogram-[facility] Name: MARY JANE SCHAEFFER Study Date: 10/07/2024 02:33 PM B/P: 137 mmHg/53 mmHg HR: 77 bpm Date of : 1970 Location: [facility] Height: 63 in. Age: 54 year(s) Patient [...] small pericardial effusion. Procedure Staff Reading Group: [facility] Referring Physician: RAVINDER CHAPMAN [employer] Team Member: ERMIAS Mckee Ordering Physician: JAKE BUCKLEY No nuclear medicine results found for the past 12 months Relevant Imaging Results Complete Echo (TTE) w/wo Imaging Agent, Strain, 3D, Bubble Study 1 1 [facility] Heart [facility] [address] [place] [address] [phone] (fax) Echocardiogram-[facility] Name: MARY JANE SANTOS Study Date: 10/07/2024 02:33 PM B/P: 137 mmHg/53 mmHg HR: 77 bpm Date of : 1970 Location: [facility] Height: 63 in. Age: 54 year(s) Patient [...] small pericardial effusion. Procedure Staff Reading Group: [facility] Referring Physician: RAVINDER CHAPMAN [employer] Team Member: ERMIAS Mckee Ordering Physician: JAKE BUCKLEY 12 [...] Collected: 10/07/2024 8:47 AM Status: UNK Source: [facility] Order Comment: Waived Testin g in the ED is performed under the ED CLIA certificate #[id number]. TYPE CODE TESTS RESULT OUT OF RANGE REFERENCE UNITS LAB 885 POCT GLUCOSE 476 High 70-105 mg/dL Result Comment: [email or web address] Performed By: #### [id number] #### [facility] ([facility]) [address] [place] [address] POCT GLUCOSE METER UNSOLICIT ED RESULTS Collected: 10/07/2024 7:40 AM Status: UNK Source: [facility] Order Comment: Waived Testin g in the ED is performed under the ED CLIA certificate #[id number]. TYPE CODE TESTS RESULT OUT OF RANGE REFERENCE UNITS LAB 885 POCT GLUCOSE 511 High Alert 70-105 mg/dL Result Comment: [email or web address] Critical Value Noted Performed By: #### [id number] #### [facility] ([facility]) [address] [place] [address] POCT GLUCOSE METER UNSOLICIT ED RESULTS Collected: 10/07/2024 6:34 AM Status: UNK Source: [facility] Order Comment: Waived Testin g in the ED is performed under the ED CLIA certificate #[id number]. TYPE CODE TESTS RESULT OUT OF RANGE REFERENCE UNITS LAB 885 POCT GLUCOSE 555 High Alert 70-105 mg/dL Result Comment: [email or web address] Performed By: #### [id number] #### [facility] ([facility]) [address] [place] [address] CBC Collected: 10/07/2024 6:06 AM Status: UN K Source: [facility] TYPE CODE TESTS RESULT OUT OF RANGE REFERENCE UNITS LAB [id number] LEUKOCYTES(10*3/ U L) IN BLOOD BY AUTOMATED COUNT 9.59 4.00-10.60 10*3/uL LAB [id number] ERYTHROCYTES (10*6/UL) IN BLOOD BY AUTOMATED COUNT 2.72 Low 3.80-5.00 10*6/uL LAB 5416265 HEMOGLOBIN (G/DL ) IN BLOOD 8.4 Low 12.0-15.0 g/dL LAB 8875445 HEMATOCRIT (%) I N BLOOD BY AUTOMATED COUNT 27.0 Low 36.0-45.0 % LAB 8690749 ERYTHROCYTE MEAN CORPUSCULAR VOLUME (FL) BY AUTOMATED COUNT 99.3 High 82.0-98.0 fL LAB [id number] ERYTHROCYTE MEAN CORPUSCULAR HEMOGLOBIN (PG) BY AUTOMATED COUNT 30.9 27.0-33.0 pg LAB 6186458 ERYTHROCYTE MEAN CORPUSCULAR HEMOGLOBIN CONCENTRATION (G/DL) BY AUTOMATED 31.1 Low 32.0-35.0 g/dL LAB 7298502 ERYTHROCYTE DISTRIBUTION WIDTH (RATIO) BY AUTOMATED COUNT 15.0 11.5-15.0 % LAB 1941642 PLATELETS (10*3/UL) IN BLOOD AUTOMATED COUNT 178 150-400 10*3/uL LAB 2878 IMMATURE PLATELE T FRACTION % 6.6 High 0.8-6.3 % Performed By: #### [id number] ## ## [facility] ([facility]) [address] [place] [address] ANTI-XA (HEPARIN LEVEL) Collected: 10/07/2024 6:06 AM Status: UNK Source: [facility] Order Comment: Check anti-Xa level every 6 hours while on heparin infusion, or per protocol. TYPE CODE TESTS RESULT OUT OF RANGE REFERENCE UNITS LAB [id number] HEPARIN UNFRACTIONATED (U/ML) IN PPP BY CHROMOGENIC METHOD 0.40 0.3-0.7 IU/mL Result Comment: Rivaroxaban and Apixaban will interfere with the anti Xa assay used to monitor UFH and LMWH. Performed By: #### [id number] ## ## [facility] ([facility]) [address] [place] [address] HIGH SENSITIVITY TROPONIN I Collected: 10/07/2024 6:00 AM Status: UNK Source: [facility] TYPE CODE TESTS RESULT OUT OF RANGE REFERENCE UNITS LAB 3630 HS TROPONIN I (NG/L) 56 High Alert <15 ng/L Performed By: #### [id number] ### [facility] ([facility]) [address] [place] [address] POCT GLUCOSE METER UNSOLICIT ED RESULTS Collected: 10/07/2024 5:34 AM Status: UNK Source: [facility] Order Comment: Waived Testin g in the ED is performed under the ED CLIA certificate #[id number]. TYPE CODE TESTS RESULT OUT OF RANGE REFERENCE UNITS LAB 885 POCT GLUCOSE 523 High Alert 70-105 mg/dL Result Comment: [email or web address] Performed By: #### [id number] #### [facility] ([facility] [address] [place] [address] POCT GLUCOSE METER UNSOLICIT ED RESULTS Collected: 10/07/2024 4:36 AM Status: UNK Source: [facility] Order Comment: Waived Testin g in the ED is performed under the ED CLIA certificate #[id number]. TYPE CODE TESTS RESULT OUT OF RANGE REFERENCE UNITS LAB 885 POCT GLUCOSE 589 High Alert 70-105 mg/dL Result Comment: [email or web address] Critical Value Noted Performed By: #### [id number] #### [facility] ([facility]) [address] [place] [address] POCT GLUCOSE METER UNSOLICIT ED RESULTS Collected: 10/07/2024 3:34 AM Status: UNK Source: [facility] Order Comment: Waived Testin g in the ED is performed under the ED CLIA certificate #[id number]. TYPE CODE TESTS RESULT OUT OF RANGE REFERENCE UNITS LAB 885 POCT GLUCOSE >600 High Alert 70-105 mg/dL Result Comment: [email or web address] Critical Value Noted Performed By: #### [id number] #### [facility] ([facility] [address] [place] [address] PROGRESS Observed: 10/07/2024 1:25 AM Status: COMPLETED Source: [facility] monitor on telemetry, trend cardiac enzymes Continue heparin drip Cardiology consult PROGRESS Observed: 10/07/2024 1:25 AM Status: COMPLETED Source: [facility] baseline unclear, monitor re nal function, monitor I's and O's PROGRESS Observed: 10/07/2024 1:25 AM Status: COMPLETED Source: [facility] continue oral antihypertensi ves PROGRESS Observed: 10/07/2024 1:25 AM Status: COMPLETED Source: [facility] reports allergy/intolerance of statins Continue fenofibrate PROGRESS Observed: 10/07/2024 1:25 AM Status: COMPLETED Source: [facility] continue levothyroxine PROGRESS Observed: 10/07/2024 1:25 AM Status: COMPLETED Source: [facility] continue PPI PROGRESS Observed: 10/07/2024 1:25 AM Status: COMP LETED Source: [facility] BMI 44.12 PROGRESS Observed: 10/07/2024 1:25 AM Status: COMPLETED Source: [facility] uncontrolled with hyperglyce jose luis due to noncompliance of insulin Normally has an insulin pump but she left at home Will start insulin drip to evaluate insulin requirement and then transition to basal/bolus regimen check hemoglobin A1c PROGRESS Observed: 10/07/2024 1:25 AM Status: COMPLETED Source: [facility] monitor hemoglobin, transfus e for hemoglobin less than 7 Monitor clinically for source of bleeding PROGRESS Observed: 10/07/2024 1:25 AM Status: COMPLETED Source: [facility] Will empirically treat with ceftriaxone and doxycycline, follow-up culture results BASIC METABOLIC PANEL Collected: 2024 1:01 AM Status: UNK Source: [facility] TYPE CODE TESTS RESULT OUT OF RANGE REFERENCE UNITS LAB [id number] SODIUM (MMOL/L) IN SER/PLAS 136 136-145 mmol/L LAB 0638007 POTASSIUM (MMOL/L) IN SER/PLAS 5.1 3.5-5.1 mmol/L LAB 7488594 CHLORIDE (MMOL/L) IN SER/PLAS 102 98-107 mmol/L LAB 3187387 CARBON DIOXIDE, TOTAL (MMOL/L) IN SER/PLAS 9 Unknown 21-31 mmol/L LAB 1759573 UREA NITROGEN (MG/DL) IN SER/PLAS 41 High 7-25 mg/dL LAB 6234697 CREATININE (MG/DL) IN SER/PLAS 1.70 High 0.60-1.20 mg/dL LAB 1081068 GLUCOSE (MG/DL) IN SER/PLAS 649 High Alert 70-100 mg/dL LAB 6755676 CALCIUM (MG/DL) IN SER/PLAS 8.6 8.6-10.3 mg/dL LAB 2538412 ANION GAP IN SER/PLAS 30 High 7-20 mmol/L LAB 7107652 GLOMERULAR FILTRATION RATE ML/MIN/1.73 SQ M.PREDICTED 35.0 Low >60.0 mL/min/ 1.73m*2 Result Comment: [facility]'s estimated glomerular filtration rate (eGFR) will [...] affect any one group of individuals. LAB 3524577 UREA NITROGEN/CREA TININE (MASS RATIO) IN SER/PLAS 24.1 NA Performed By: #### [id number] ### # [facility] ([facility]) [address] [place] [address] ANTI-XA (HEPARIN LEVEL) Collected: 10/07/2024 1:01 AM Status: UNK Source: [facility] TYPE CODE TESTS RESULT OUT OF RANGE REFERENCE UNITS LAB [id number] HEPARIN UNFRACTIONATED (U/ML) IN PPP BY CHROMOGENIC METHOD <0.10 Unknown 0.3-0.7 IU/mL Result Comment: Rivaroxaban and Apixaban will interfere with the anti Xa assay used to monitor UFH and LMWH. Performed By: #### [id number] ## ## [facility] ([facility]) [address] [place] [address] APTT Collected: 10/07/2024 1:01 AM Status: UN K Source: [facility] TYPE CODE TESTS RESULT OUT OF RANGE REFERENCE UNITS LAB 8588494 ACTIVATED PARTIA L THROMBOPLASTIN TIME IN PPP BY COAGULATION ASSAY 46.7 High 25.0-35.0 Seconds Result Comment: Clinical sig nificance of the APTT is questionable in the presence of heparin. Performed By: #### [id number] ## ## [facility] ([facility]) [address] [place] [address] LACTIC ACID WITH 4 HOUR REFLEX Collecte d: 10/07/2024 12:54 AM Status: UNK Source: [facility] TYPE CODE TESTS RESULT OUT OF RANGE REFERENCE UNITS LAB [id number] LACTATE (MMOL/L) IN SER/PLAS 1.1 0.5-2.2 mmol/L Performed By: #### [id number] #### [facility] ([facility]) [address] [place] [address] BLOOD CULTURE Collected: 12:54 AM Status: UNK Source: [facility] Order Comment: From a differ ent site than #1. TYPE CODE TESTS RESULT OUT OF RANGE REFERENCE UNITS LAB [id number] BLOOD CULTURE No growth at 5 days Performed By: #### [id number] ## ## [facility] ([facility]) [address] [place] [address] BLOOD CULTURE Collected: 12:54 AM Status: UNK Source: [facility] TYPE CODE TESTS RESULT OUT OF RANGE REFERENCE UNITS LAB [id number] BLOOD CULTURE No growth at 5 days Performed By: #### [id number] ## ## [facility] ([facility]) [address] [place] [address] POCT GLUCOSE METER UNSOLICIT ED RESULTS Collected: 10/07/2024 12:11 AM Status: UNK Source: [facility] Order Comment: Waived Testin g in the ED is performed under the ED CLIA certificate #[id number]. TYPE CODE TESTS RESULT OUT OF RANGE REFERENCE UNITS LAB 885 POCT GLUCOSE >600 High Alert 70-105 mg/dL Result Comment: [email or web address] Critical Value Noted Performed By: #### [id number] #### [facility] ([facility]) [address] [place] [address] 30 Observed: 10/06/2024 11:37 PM Status: COMPLETED Source: [facility] Problem: Pain - Adult Goal: Verbalizes/displays adequate [...] d: 10/06/2024 11:29 PM Status: UNK Source: [facility] TYPE CODE TESTS RESULT OUT OF RANGE REFERENCE UNITS LAB [id number] LACTATE (MMOL/L) IN SER/PLAS 1.2 0.5-2.2 mmol/L Performed By: #### [id number] #### [facility] ([facility]) [address] [place] [address] HEMOGLOBIN A1C Collected: 10/06/2024 10:35 PM Status : UNK Source: [facility] TYPE CODE TESTS RESULT OUT OF RANGE REFERENCE UNITS LAB 8736020 HEMOGLOBIN A1C/HEMOGLOBIN TOTAL IN BLOOD 9.0 High 4.0-6.0 % LAB 294 ESTIMATED AVERAGE GLUCOSE (MG/DL) IN BLOOD 212 mg/dL Performed By: #### [id number] ### # [facility] ([facility]) [address] [place] [address] CBC WITH AUTO DIFFERENTIAL Collected: 0 10/06/2024 10:35 PM Status: UNK Source: [facility] TYPE CODE TESTS RESULT OUT OF RANGE REFERENCE UNITS LAB 9677801 LEUKOCYTES(10*3/ UL) IN BLOOD BY AUTOMATED COUNT 5.88 4.00-10.60 10*3/uL LAB 1202293 ERYTHROCYTES (10*6/UL) IN BLOOD BY AUTOMATED COUNT 2.74 Low 3.80-5.00 10*6/uL LAB 3778521 HEMOGLOBIN (G/DL) IN BLOOD 8.5 Low 12.0-15.0 g/dL LAB 9091950 HEMATOCRIT (%) IN BLOOD BY AUTOMATED COUNT 29.0 Low 36.0-45.0 % LAB 2456173 ERYTHROCYTE MEAN CORPUSCULAR VOLUME (FL) BY AUTOMATED COUNT 105.8 High 82.0-98.0 fL LAB 6814322 ERYTHROCYTE MEAN CORPUSCULAR HEMOGLOBIN (PG) BY AUTOMATED COUNT 31.0 27.0-33.0 pg LAB 4195392 ERYTHROCYTE MEAN CORPUSCULAR HEMOGLOBIN CONCENTRATION (G/DL) BY AUTOMATED 29.3 Low 32.0-35.0 g/dL LAB 8668061 ERYTHROCYTE DISTRIBUTION WIDTH (RATIO) BY AUTOMATED COUNT 15.0 11.5-15.0 % LAB 1072940 NEUTROPHILS/100 LEUKOCYTES IN BLOOD BY AUTOMATED COUNT 86.9 High 40.0-72.0 % LAB 2455871 LYMPHOCYTES/100 LEUKOCYTES IN BLOOD BY AUTOMATED COUNT 10.5 Low 20.0-45.0 % LAB 3962793 MONOCYTES/100 LEUKOCYTES IN BLOOD BY AUTOMATED COUNT 1.4 Low 5.0-12.0 % LAB 6691502 EOSINOPHILS/100 LEUKOCYTES IN BLOOD BY AUTOMATED COUNT 0.0 0.0-6.0 % LAB 4060510 BASOPHILS/100 LEUKOCYTES IN BLOOD BY AUTOMATED COUNT 0.2 0.0-1.0 % LAB 2877676 NEUTROPHILS (10*3/UL) IN BLOOD BY AUTOMATED COUNT 5.11 1.60-7.60 10*3/uL LAB 6560579 LYMPHOCYTES (10*3/UL) IN BLOOD BY AUTOMATED COUNT 0.62 Low 1.20-4.00 10*3/uL LAB 4864712 MONOCYTES (10*3/UL) IN BLOOD BY AUTOMATED COUNT 0.08 Low 0.10-1.00 10*3/uL LAB 7923492 EOSINOPHILS (10*3/UL) IN BLOOD BY AUTOMATED COUNT 0.00 0.00-0.50 10*3/uL LAB 6527558 BASOPHILS (10*3/UL) IN BLOOD BY AUTOMATED COUNT 0.01 0.00-0.20 10*3/uL LAB 1010909 PLATELETS (10*3/UL) IN BLOOD AUTOMATED COUNT 126 Low 150-400 10*3/uL LAB 254 NRBC (PER 100 WBCS) BY AUTOMATED COUNT 0.0 0 % LAB 1767 IMMATURE GRANULOCYTES/100 LEUKOCYTES IN BLOOD BY AUTOMATED COUNT 1.0 0.0-1.0 % LAB 1768 IMMATURE GRANULOCYTES (10*3/UL) IN BLOOD BY AUTOMATED COUNT 0.06 0.00-0.20 10*3/uL Performed By: #### [id number] # ### [facility] ([facility]) [address] [place] [address] Observed: 10/06/2024 10:11 PM Status: COMPLETED Source: [facility] Hospital Medicine History and Physical 10/07/2024 1:19 AM THE HOSPITALIST TEAM PREFERS TO USE [employer] FOR NON-URGENT COMMUNICATION 7AM-7PM. IF I DO NOT RESPOND WITHIN 20 MINUTES OR URGENT MATTERS, PLEASE CALL THROUGH THE PICKER. FROM 7PM-7AM, PLEASE PAGE [phone](COVR). Chief Complaint cough and shortness of breath History of Present Illness Authsudheer Schaeffer is an 54 y.o. female who came from the [facility] with 3-day history of shortness of [...] & Plan NSTEMI (non-ST elevated myocardial infarction) ([facility]) monitor on telemetry, trend cardiac enzymes Continue [...] fenofibrate Insulin dependent type 2 diabetes mellitus ([facility]) uncontrolled with hyperglycemia due to noncompliance of insulin Normally has an insulin pump but she left at home Will start insulin drip to evaluate insulin requirement and then transition to basal/bolus regimen check hemoglobin A1c Class 3 obesity BMI 44.12 Essential hypertension continue oral antihypertensives History of supraventricular tachycardia Chronic kidney disease (CKD), stage III (moderate) ([facility]) baseline unclear, monitor renal function, monitor I's [...] this hospital stay by a member of [facility]. Past Medical History Past Medical History: [...] Procedure Abnormality Status --------- ------ CBC auto differential[[id number]] Abnormal Final result Please view results for these tests on the individual orders. BASIC METABOLIC PANEL HIGH SENSITIVITY TROPONIN I LACTIC ACID WITH 4 HOUR REFLEX BASIC METABOLIC PANEL APTT ANTI-XA (HEPARIN LEVEL) POCT GLUCOSE METER POCT GLUCOSE METER POCT GLUCOSE METER Imaging XR knee 3 views left Narrative: [facility] Department of Radiology [address] [place] [address] Patient Name: MARY JANE SCHAEFFER : 1970 Sex: F Age: Race: White^White Pt. Location: Patient Status: O Ordered Date: 11/24/2017 11:25:00 AM Completed Date: 11/24/2017 11:28 AM Requesting Provider: RODRIGO ABREU Attending Provider: RODRIGO ABREU Report Copy To: Signs & Symptoms: M25.562 Pain in left knee I10 History: [place] Comments: , Views (X-RAY, KNEE): AP, Lateral, [place] , Weight Bearing?: Y , With Magnification Marker?: N , Views (X-RAY, KNEE): AP, Lateral, [place] , Weight Bearing?: Y , With Magnification [...] System PROTOCOL: AP(PA) view was obtained. (accession [id number]), AP,Lateral and Tangential views were obtained. (accession [id number]) COMPARISON: None FINDINGS: Pelvis: Moderate bilateral hip osteoarthritis with mild peritrochanteric heterotopic ossifications. Left knee: Severe medial weightbearing osteoarthritis with joint effusion and essentially complete joint space loss. Incidental broken needle foreign body along the anterolateral soft tissues of proximal lower leg Impression: 1. Moderate bilateral hip osteoarthritis 2. Severe medial weightbearing knee arthritis Electronically signed by:Elham Bernard. Transcribed by: [email or web address], User Resident: Electronically Signed by: ELHAM BERNARD @ 11/24/2017 12:54 PM XR pelvis 1 or 2 views Narrative: [facility] Department of Radiology [address] [place] [id number] Patient Name: MARY JANE SCHAEFFER : [...] System PROTOCOL: AP(PA) view was obtained. (accession [id number]), AP,Lateral and Tangential views were obtained. (accession [id number]) COMPARISON: None FINDINGS: Pelvis: Moderate bilateral hip osteoarthritis with mild peritrochanteric heterotopic ossifications. Left knee: Severe medial weightbearing osteoarthritis with joint effusion and essentially complete joint space loss. Incidental broken needle foreign body along the anterolateral soft tissues of proximal lower leg Impression: 1. Moderate bilateral hip osteoarthritis 2. Severe medial weightbearing knee arthritis Electronically signed by:Elham Bernard. Transcribed by: [email or web address], User Resident: Electronically Signed by: ELHAM BERNARD @ 11/24/2017 12:54 PM Signed Silver Cain MD [facility] Medicine 10/07/2024 1:19 AM COMPLETE BLOOD COUNT AUTO DIFF Collected: 08/21/2024 5:00 PM Status: F Source: F [facility] TYPE CODE TESTS RESULT OUT OF [...] By: #### CRP, CBC, CMP, ESR #### [facility] [address] [place] [address] [facility] ERYTHROCYTE SEDIMENTATION RATE Collected: 08/21/2024 5:00 PM Status: F Source: [facility] TYPE CODE TESTS RESULT OUT OF RANGE REFERENCE UNITS LAB ESR Erythrocyte Sedimentation Rate 57 High 0-29 Result Comment: PERFORMED BY : [place] [address] PATHOLOGIST URGENT CARE NURSE PRACTITIONER NATHANIEL DRAPER M.D. Performed By: #### CRP, CBC, CMP, ESR #### [place] [id number] [facility] COMPREHENSIVE METABOLIC PANEL Collected: 08/21/2024 5 :00 PM Status: F Source: [facility] TYPE CODE TESTS RESULT OUT OF [...] By: #### CRP, CBC, CMP, ESR #### [place] [id number] [place] C-REACTIVE PROTEIN Collected: 5:00 PM Status: F Source: [facility] TYPE CODE TESTS RESULT OUT OF RANGE REFERENCE UNITS LAB CRP C-Reactive Protein <0.5 Normal 0.0-0.5 mg/dL Result Comment: PERFORMED BY : [place] [address] PATHOLOGIST URGENT CARE NURSE PRACTITIONER NATHANIEL DRAPER M.D. Performed By: #### CRP, CBC, CMP, ESR #### [facility] [address] [place] [address] CT ABDOMEN PELVIS W CON Observed: 2024 8:52 PM Status: COMPLETED Source: [facility] C ENTER [facility] Main [place] [address] [place] [address] CT Scan Report Signed Patient: Mary Jane Schaeffer MR#: [id number] : 1970 Acct:[id number] Age/Sex: 54 / F ADM Date: 08/11/24 Loc: ER Room: Type: [facility] ER Attending Dr: Copies to: Jorge Early [...] Mihai Jackson M.D.08/11/2024 9:01 PM Dictation Location: [place] [address] Transcribed By: [facility] 08/11/242100 Dictated By: Mihai Jackson DO 08/11/242051 Signed By: <Electronically signed by Mihai Jackson DO in OV> 08/11/242100 GLUCOSE POCT GLUCOMETERS Collected: 08/11/2024 8:21 P M Status: F Source: [facility] TYPE CODE TESTS RESULT OUT OF RANGE REFERENCE UNITS LAB GLUPOC Glucose Poc Glucometers 99 mg/dL Result Comment: Random Gluco se Reference Range is dependent on time and content of last meal. Glucose of more than 200 mg/dL in a nonstressed, ambulatory subject supports the diagnosis of Diabetes Mellitus. PERFORMED BY: [facility] [address] [place] [address] PATHOLOGIST URGENT CARE NURSE PRACTITIONER NATHANIEL DRAPER M.D. Performed By: #### GLULS ### # Point of Care testing , HEPATIC PANEL Collected: 08/11/2024 7:20 PM Status: F Source: [facility] TYPE CODE TESTS RESULT OUT OF [...] #### ESR, CRP, BMP, CBC, HEPATIC #### [facility] [address] [place] [id number] [facility] BASIC METABOLIC PANEL Collected: 08/11/2024 7:20 PM Status: F Source: [facility] TYPE CODE TESTS RESULT OUT OF [...] #### ESR, CRP, BMP, CBC, HEPATIC #### [facility] [address] [place] [id number] [facility] C-REACTIVE PROTEIN Collected: 08/11/2024 7:20 PM Sta tus: F Source: [facility] TYPE CODE TESTS RESULT OUT OF RANGE REFERENCE UNITS LAB CRP C-Reactive Protein 3.5 High 0.0-0.5 mg/dL Result Comment: PERFORMED BY : [place] [address] PATHOLOGIST URGENT CARE NURSE PRACTITIONER NATHANIEL DRAPER M.D. Performed By: #### ESR, CRP, BMP, CBC, HEPATIC #### [place] [id number] [facility] COMPLETE BLOOD COUNT AUTO DIFF Collected: 08/11/2024 7:20 PM Status: F Source: F [facility] TYPE CODE TESTS RESULT OUT OF [...] #### ESR, CRP, BMP, CBC, HEPATIC #### [facility] [address] [place] [id number] [facility] ERYTHROCYTE SEDIMENTATION RATE Collected: 08/11/2024 7:20 PM Status: F Source: [facility] TYPE CODE TESTS RESULT OUT OF RANGE REFERENCE UNITS LAB ESR Erythrocyte Sedimentation Rate 82 High 0-29 Result Comment: PERFORMED BY : [place] [id number] PATHOLOGIST URGENT CARE NURSE PRACTITIONER NATHANIEL DRAPER M.D. Performed By: #### ESR, CRP, BMP, CBC, HEPATIC #### [place] [id number] [facility] PROGRESS Observed: 07/07/2024 2:00 PM Status: COMPLETED Source: [facility] Cardiology Clinic Note Chief Complaint: Patient here [...] history of Abnormal ECG, Asthma, Diabetes mellitus ([facility]), and Hyperlipidemia. Surgical History She [...] Dr. Andrew already scheduled 5. Follow-up with [facility] cardiology on an as-needed basis DANIELLE,AUTHUMN D [...] problems arise Rebeca Valadez MD, MPH, FACC, [facility] Interventional Cardiology Pager Email: [email or web address] OFFICE VISIT Observed: 07/07/2024 2:00 PM Status: COMPLETED Source: [facility] [id number] [facility] 1970 F Date Provider Department Center 07/07/2024 Leyda-REBECA VALADEZ CARD [facility] Family History Problem Relation Age of Onset Angina Mother Heart attack Mother Heart attack Maternal Grandfather Family Status - Relation Status Age at Mother Maternal Grandfather Level of Service:[address] [place] OFFICE/OUTPATIENT ESTABLISHED MOD MDM 30 MIN GLUCOSE POCT GLUCOMETERS Collected: 05/04/2024 6:58 A M Status: F Source: [facility] TYPE CODE TESTS RESULT OUT OF RANGE REFERENCE UNITS LAB GLUPOC Glucose Poc Glucometers 73 mg/dL Result Comment: Random Gluco se Reference Range is dependent on time and content of last meal. Glucose of more than 200 mg/dL in a nonstressed, ambulatory subject supports the diagnosis of Diabetes Mellitus. PERFORMED BY: [facility] [address] [place] [address] PATHOLOGIST URGENT CARE NURSE PRACTITIONER NATHANIEL DRAPER M.D. Performed By: #### GLULS ### # Point of Care testing , GLUCOSE POCT GLUCOMETERS Collected: 05/04/2024 4:18 A M Status: F Source: [facility] TYPE CODE TESTS RESULT OUT OF RANGE REFERENCE UNITS LAB GLUPOC Glucose Poc Glucometers 93 mg/dL Result Comment: Random Gluco se Reference Range is dependent on time and content of last meal. Glucose of more than 200 mg/dL in a nonstressed, ambulatory subject supports the diagnosis of Diabetes Mellitus. PERFORMED BY: [facility] [address] [place] [address] PATHOLOGIST URGENT CARE NURSE PRACTITIONER NATHANIEL DRAPER M.D. Performed By: #### GLULS ### # Point of Care testing , GLUCOSE POCT GLUCOMETERS Collected: 05/04/2024 2:01 A M Status: F Source: [facility] TYPE CODE TESTS RESULT OUT OF RANGE REFERENCE UNITS LAB GLUPOC Glucose Poc Glucometers 79 mg/dL Result Comment: Random Gluco se Reference Range is dependent on time and content of last meal. Glucose of more than 200 mg/dL in a nonstressed, ambulatory subject supports the diagnosis of Diabetes Mellitus. PERFORMED BY: [address] [place] [address] PATHOLOGIST URGENT CARE NURSE PRACTITIONER NATHANIEL DRAPER M.D. Performed By: #### GLULS ### # Point of Care testing , GLUCOSE POCT GLUCOMETERS Collected: 05/03/2024 10:49 PM Status: F Source: [facility] TYPE CODE TESTS RESULT OUT OF RANGE REFERENCE UNITS LAB GLUPOC Glucose Poc Glucometers 133 mg/dL Result Comment: Random Gluco se Reference Range is dependent on time and content of last meal. Glucose of more than 200 mg/dL in a nonstressed, ambulatory subject supports the diagnosis of Diabetes Mellitus. PERFORMED BY: [address] [place] [address] PATHOLOGIST URGENT CARE NURSE PRACTITIONER NATHANIEL DRAPER M.D. Performed By: #### GLULS ### # Point of Care testing , GLUCOSE POCT GLUCOMETERS Collected: 05/03/2024 9:40 P M Status: F Source: [facility] TYPE CODE TESTS RESULT OUT OF [...] Glu2: WILL N OTIFY DR/RN PERFORMED BY: [address] [place] [address] PATHOLOGIST URGENT CARE NURSE PRACTITIONER NATHANIEL DRAPER M.D. Performed By: #### GLULS ### # Point of Care testing , GLUCOSE POCT GLUCOMETERS Collected: 05/03/2024 6:30 P M Status: F Source: [facility] TYPE CODE TESTS RESULT OUT OF RANGE REFERENCE UNITS LAB GLUPOC Glucose Poc Glucometers 125 mg/dL Result Comment: Random Gluco se Reference Range is dependent on time and content of last meal. Glucose of more than 200 mg/dL in a nonstressed, ambulatory subject supports the diagnosis of Diabetes Mellitus. PERFORMED BY: [address] [place] [address] PATHOLOGIST URGENT CARE NURSE PRACTITIONER NATHANIEL DRAPER M.D. Performed By: #### GLULS ### # Point of Care testing , GLUCOSE POCT GLUCOMETERS Collected: 05/03/2024 5:54 P M Status: F Source: [facility] TYPE CODE TESTS RESULT OUT OF RANGE REFERENCE UNITS LAB GLUPOC Glucose Poc Glucometers 63 mg/dL Result Comment: Random Gluco se Reference Range is dependent on time and content of last meal. Glucose of more than 200 mg/dL in a nonstressed, ambulatory subject supports the diagnosis of Diabetes Mellitus. LAB COMM1 Commemt1 Result Comment: Glu2: Will R epeat Test PERFORMED BY: [address] [address] PATHOLOGIST URGENT CARE NURSE PRACTITIONER NATHANIEL DRAPER M.D. Performed By: #### GLULS ### # Point of Care testing , GLUCOSE POCT GLUCOMETERS Collected: 05/03/2024 3:51 P M Status: F Source: [facility] TYPE CODE TESTS RESULT OUT OF RANGE REFERENCE UNITS LAB GLUPOC Glucose Poc Glucometers 134 mg/dL Result Comment: Random Gluco se Reference Range is dependent on time and content of last meal. Glucose of more than 200 mg/dL in a nonstressed, ambulatory subject supports the diagnosis of Diabetes Mellitus. PERFORMED BY: [address] [address] PATHOLOGIST URGENT CARE NURSE PRACTITIONER NATHANIEL DRAPER M.D. Performed By: #### GLULS ### # Point of Care testing , GLUCOSE POCT GLUCOMETERS Collected: 05/03/2024 2:28 P M Status: F Source: [facility] TYPE CODE TESTS RESULT OUT OF RANGE REFERENCE UNITS LAB GLUPOC Glucose Poc Glucometers 155 mg/dL Result Comment: Random Gluco se Reference Range is dependent on time and content of last meal. Glucose of more than 200 mg/dL in a nonstressed, ambulatory subject supports the diagnosis of Diabetes Mellitus. PERFORMED BY: [address] [address] PATHOLOGIST URGENT CARE NURSE PRACTITIONER NATHANIEL DRAPER M.D. Performed By: #### GLULS ### # Point of Care testing , GLUCOSE POCT GLUCOMETERS Collected: 05/03/2024 2:10 P M Status: F Source: [facility] TYPE CODE TESTS RESULT OUT OF RANGE REFERENCE UNITS LAB GLUPOC Glucose Poc Glucometers 116 mg/dL Result Comment: Random Gluco se Reference Range is dependent on time and content of last meal. Glucose of more than 200 mg/dL in a nonstressed, ambulatory subject supports the diagnosis of Diabetes Mellitus. PERFORMED BY: [address] [place] [address] PATHOLOGIST URGENT CARE NURSE PRACTITIONER NATHANIEL DRAPER M.D. Performed By: #### GLULS ### # Point of Care testing , GLUCOSE POCT GLUCOMETERS Collected: 05/03/2024 2:00 P M Status: F Source: [facility] TYPE CODE TESTS RESULT OUT OF [...] Comment: Glu2: Result Not Confirmed PERFORMED BY: [address] [place] [address] PATHOLOGIST URGENT CARE NURSE PRACTITIONER NATHANIEL DRAPER M.D. Performed By: #### GLULS ### # Point of Care testing , GLUCOSE POCT GLUCOMETERS Collected: 05/03/2024 1:55 P M Status: F Source: [facility] TYPE CODE TESTS RESULT OUT OF RANGE REFERENCE UNITS LAB GLUPOC Glucose Poc Glucometers 45 Low Off Scale mg/dL Result Comment: Random Gluco se Reference Range is dependent on time and content of last meal. Glucose of more than 200 mg/dL in a nonstressed, ambulatory subject supports the diagnosis of Diabetes Mellitus. LAB COMM1 Commemt1 Result Comment: Glu2: FOLLOW HYPOGLYCEMIC PERFORMED BY: [address] [place] [address] PATHOLOGIST URGENT CARE NURSE PRACTITIONER NATHANIEL DRAPER M.D. Performed By: #### GLULS ### # Point of Care testing , GLUCOSE POCT GLUCOMETERS Collected: 05/03/2024 10:26 AM Status: F Source: [facility] TYPE CODE TESTS RESULT OUT OF RANGE REFERENCE UNITS LAB GLUPOC Glucose Poc Glucometers 216 mg/dL Result Comment: Random Gluco se Reference Range is dependent on time and content of last meal. Glucose of more than 200 mg/dL in a nonstressed, ambulatory subject supports the diagnosis of Diabetes Mellitus. PERFORMED BY: [facility] [address] [place] [address] PATHOLOGIST URGENT CARE NURSE PRACTITIONER NATHANIEL DRAPER M.D. Performed By: #### GLULS ### # Point of Care testing , COMPLETE BLOOD COUNT AUTO DIFF Collected: 05/03/2024 10:25 AM Status: F Source: [facility] TYPE CODE TESTS RESULT OUT OF [...] 0.0-0.2 10*3/uL Result Comment: PERFORMED BY : [place] [address] PATHOLOGIST URGENT CARE NURSE PRACTITIONER NATHANIEL DRAPER M.D. Performed By: #### BMP, CBC #### [address] BASIC METABOLIC PANEL Collected: 2023 10:25 AM Status: F Source: [facility] TYPE CODE TESTS RESULT OUT OF [...] 8.6-10.3 mg/dL Result Comment: PERFORMED BY : [place] [address] PATHOLOGIST URGENT CARE NURSE PRACTITIONER NATHANIEL DRAPER M.D. Performed By: #### BMP, CBC #### [facility] [address] [place] [address], [place] [address] [facility] L Observed: 04/28/2024 12:00 AM Status: [place] Source: [facility] ----- ------- Specimen: [id number] Received: 05/03/24 Status: TIEN Rose Num: [id number] Spec Type: Surgical Subm Dr: Troy Moya MD Tissues: A Skin Tag or debridement (PRODUCTS OF DEBRIDEMENT) Procedures: Malena PEREZ/Shikha L3 ----- ------- Age/ Patient Sex Location Account Attending Physician ----- ------- Mary Jane Schaeffer 53/F [place] [id number] Troy Moya MD ----- ------- SPEC NUM: [id number] RECD: 05/03/24 STATUS: TIEN ROSE NUM: [id number] KEVIN: 04/28/24- SUBM DR: Troy Moya MD ENTERED: 05/03/[address] [facility] [address]: SPEC TYPE: Surgical DEPT: S ENTERED BY: [id number] RECV BY: [id number] ORDERED: HE, Gross/Micro L3 ORDERED: HE, Gross/Micro [...] to corbin-green, dull and uniform cut surfaces. Washer Engineer Helper sections are submitted in a single cassette. (1, ss, [id number] A) CPT Codes 06633 ----- ------- ----- ------- Specimen: [id number] Received: 05/03/24 Status: TIEN Rose Num: [id number] Spec Type: Surgical Subm Dr: Troy Moya MD Tissues: A Skin Tag or debridement (PRODUCTS OF DEBRIDEMENT) Procedures: HE, Gross/Micro L3 ----- ------- Patient: Mary Jane Schaeffer [id number] (Continued) ----- ------- Signed (signature on file) Nathaniel Draper MD 05/05/[address] ABDOMEN PELVIS W CON Observed: 2023 10:43 PM Status: COMPLETED Source: [place] [address] CT Scan Report Signed Patient: Mary Jane Schaeffer MR#: [id number] : 1970 Acct:[id number] Age/Sex: 53 / F ADM Date: 04/05/24 Loc: ER Room: Type: [facility] ER Attending Dr: Copies to: [place] [...] De Souza M.D.04/05/2024 10:53 PM Dictation Location: [place] [address] Transcribed By: [facility] 04/05/242252 Dictated By: Donald De Souza II, MD 04/05/242242 Signed By: <Electronically signed by Donald De Souza II, MD in OV> 04/05/242252 VENOUS BLOOD GAS Collected: 04/05/2024 10:34 PM Stat us: F Source: [facility] TYPE CODE TESTS RESULT OUT OF RANGE REFERENCE UNITS LAB VBPH VBG PH Venous PH 7.39 Normal 7.32-7.43 LAB VBPCO2 VBG PCO2 35.6 Low 38.0-50.0 mm[Hg] LAB VBHCO3 VBG HCO3 21.2 Low 23.0-29.0 mmol/L LAB VBBE VBG Base Excess -3.2 Low -3.0-3.0 mmol/L LAB CPV8NRL VBG Oxygen Saturation 85.7 High Off Scale 73.0-76.0 % LAB VBTCO2 VBG TCO2 22.3 Low 24.0-29.0 mmol/L LAB VBFIO2 VBG Frac Inspired O2 21 % LAB VBDRAW VBG Draw Site Venous LAB RESPCRIT Respiratory Critical Result Comment: Critical Cheryl ue called on: 04/05/2024 at 22:36 PERFORMED BY: [place] [address] PATHOLOGIST URGENT CARE NURSE PRACTITIONER MEERA GRIFFITHS M.D. Performed By: #### VBG #### Point of Care testing , BETA HYDROXYBUTERATE Collected: 04/05/2024 8:57 PM S tatus: F Source: [facility] TYPE CODE TESTS RESULT OUT OF RANGE REFERENCE UNITS LAB BHOB Beta Hydroxybuterate 1.04 High 0.02-0.27 mmol/L Result Comment: PERFORMED BY : [place] [address] PATHOLOGIST URGENT CARE NURSE PRACTITIONER MEERA GRIFFITHS M.D. Performed By: #### BHOB #### [address] COMPLETE BLOOD COUNT AUTO DIFF Collected: 04/05/2024 8:57 PM Status: F Source: F [facility] TYPE CODE TESTS RESULT OUT OF [...] 0.0-0.2 10*3/uL Result Comment: PERFORMED BY : [place] [address] PATHOLOGIST URGENT CARE NURSE PRACTITIONER MEERA GRIFFITHS M.D. Performed By: #### CBC, BMP #### [address] BASIC METABOLIC PANEL Collected: 04/05/2024 8:57 PM Status: F Source: [facility] TYPE CODE TESTS RESULT OUT OF RANGE REFERENCE UNITS LAB GLU Glucose 694 High Off Scale 70-100 mg/dL Result Comment: Critical Res ult Called to and read back by: JESUS MORSE at: 04/05/2024 21:29:55 by:[id number] Random Glucose Reference Range is dependent on [...] Pharmacy 70.95 Result Comment: PERFORMED BY : [place] [address] PATHOLOGIST URGENT CARE NURSE PRACTITIONER MEERA GRIFFITHS M.D. Performed By: #### CBC, BMP #### [address] DIPSTICK AND MICROSCOPIC Collected: 09/2023 7:35 PM Status: F Source: [facility] Order Comment: Name Collecti on Type:: Clean-Voided Midstream TYPE CODE TESTS RESULT OUT OF RANGE REFERENCE UNITS LAB UCOL Color,Urine Light-Yellow Yellow LAB UAPP Appearance,Uri ne Clear Clear LAB USG Specificy [place],Urine 1.025 Normal 1.001-1.030 LAB UPH pH,Urine 5.5 Normal 5.0-9.0 LAB ULE Leukocyte Esterase,Urine Negative Negative LAB UNIT Nitrite,Urine Negative Negative LAB UPRO Protein,Urine Trace High Negative LAB UGL Glucose,Urine (UA) >=1000 High Normal LAB UKET Ketones,Urine Trace High Negative LAB UURO Urobilinogen,U rine Normal Normal LAB UBIL Bilirubin,Urin e Negative Negative LAB UBLD Occult Blood,Urine Negative Negative Result Comment: PERFORMED BY : [place] [id number] PATHOLOGIST URGENT CARE NURSE PRACTITIONER MEERA GRIFFITHS M.D. LAB URBC RBC,Urine 1-2 0-4 LAB UWBC WBC,Urine 5-9 High 0-4 LAB USQEPI Squamous Epithelial Cell,Urine 1-2 0-2 LAB UBACT Bacteria,Urine None Seen None Seen Result Comment: PERFORMED BY : [place] [address] PATHOLOGIST URGENT CARE NURSE PRACTITIONER MEERA GRIFFITHS M.D. Performed By: #### ADDONUAPL #### [place] [id number] [facility] GLUCOSE POCT GLUCOMETERS Collected: 03/24/2024 11:28 AM Status: F Source: [facility] TYPE CODE TESTS RESULT OUT OF RANGE REFERENCE UNITS LAB GLUPOC Glucose Poc Glucometers 191 mg/dL Result Comment: Random Gluco se Reference Range is dependent on time and content of last meal. Glucose of more than 200 mg/dL in a nonstressed, ambulatory subject supports the diagnosis of Diabetes Mellitus. PERFORMED BY: [place] [address] PATHOLOGIST URGENT CARE NURSE PRACTITIONER MEERA GRIFFITHS M.D. Performed By: #### GLULS ### # Point of Care testing , GLUCOSE POCT GLUCOMETERS Collected: 03/24/2024 6:25 A M Status: F Source: [facility] TYPE CODE TESTS RESULT OUT OF RANGE REFERENCE UNITS LAB GLUPOC Glucose Poc Glucometers 245 mg/dL Result Comment: Random Gluco se Reference Range is dependent on time and content of last meal. Glucose of more than 200 mg/dL in a nonstressed, ambulatory subject supports the diagnosis of Diabetes Mellitus. PERFORMED BY: [place] [id number] PATHOLOGIST URGENT CARE NURSE PRACTITIONER MEERA GRIFFITHS M.D. Performed By: #### GLULS ### # Point of Care testing , COMPLETE BLOOD COUNT AUTO DIFF Collected: 03/24/2024 6:21 AM Status: F Source: F [facility] TYPE CODE TESTS RESULT OUT OF [...] 0.0-0.2 10*3/uL Result Comment: PERFORMED BY : [place] [address] PATHOLOGIST URGENT CARE NURSE PRACTITIONER MEERA GRIFFITHS M.D. Performed By: #### CBC, BMP #### [address] BASIC METABOLIC PANEL Collected: 03/24/2024 6:21 AM Status: F Source: [facility] TYPE CODE TESTS RESULT OUT OF [...] Pharmacy 49.93 Result Comment: PERFORMED BY : [place] [address] PATHOLOGIST URGENT CARE NURSE PRACTITIONER MEERA GRIFFITHS M.D. Performed By: #### CBC, BMP #### [address] GLUCOSE POCT GLUCOMETERS Collected: 03/24/2024 2:03 A M Status: F Source: [facility] TYPE CODE TESTS RESULT OUT OF RANGE REFERENCE UNITS LAB GLUPOC Glucose Poc Glucometers 311 mg/dL Result Comment: Random Gluco se Reference Range is dependent on time and content of last meal. Glucose of more than 200 mg/dL in a nonstressed, ambulatory subject supports the diagnosis of Diabetes Mellitus. PERFORMED BY: [place] [address] PATHOLOGIST URGENT CARE NURSE PRACTITIONER MEERA GRIFFITHS M.D. Performed By: #### GLULS ### # Point of Care testing , GLUCOSE POCT GLUCOMETERS Collected: 03/23/2024 8:51 P M Status: F Source: [facility] TYPE CODE TESTS RESULT OUT OF RANGE REFERENCE UNITS LAB GLUPOC Glucose Poc Glucometers 346 mg/dL Result Comment: Random Gluco se Reference Range is dependent on time and content of last meal. Glucose of more than 200 mg/dL in a nonstressed, ambulatory subject supports the diagnosis of Diabetes Mellitus. PERFORMED BY: [address] [address] PATHOLOGIST URGENT CARE NURSE PRACTITIONER JIANLAN SUN M.D. Performed By: #### GLULS ### # Point of Care testing , XR CHEST 1V PORTABLE Observed: 4 4:31 PM Status: COMPLETED Source: [facility] [address] [address] XRay Report Signed Patient: Mary Jane Schaeffer MR#: [id number] : 1970 Acct:[id number] Age/Sex: 53 / F ADM Date: 03/17/24 Loc: Room: [address] [place] [address] Type: ADM IN Attending Dr: Billy Nickerson [...] Kim Coleman M.D.03/23/2024 4:33 PM Dictation Location: [place] [address] Transcribed By: [facility] 03/23/24 1633 Dictated By: Kim Coleman MD 03/23/24 1631 Signed By: <Electronically signed by MD Kim Coleman in OV> 03/23/24 1633 GLUCOSE POCT GLUCOMETERS Collected: 03/23/2024 4:03 P M Status: F Source: [facility] TYPE CODE TESTS RESULT OUT OF RANGE REFERENCE UNITS LAB GLUPOC Glucose Poc Glucometers 393 mg/dL Result Comment: Random Gluco se Reference Range is dependent on time and content of last meal. Glucose of more than 200 mg/dL in a nonstressed, ambulatory subject supports the diagnosis of Diabetes Mellitus. PERFORMED BY: [place] [address] PATHOLOGIST URGENT CARE NURSE PRACTITIONER MEERA GRIFFITHS M.D. Performed By: #### GLULS ### # Point of Care testing , PROTHROMBIN TIME INR Collected: 12:40 PM Status: F Source: [facility] TYPE CODE TESTS RESULT OUT OF RANGE REFERENCE UNITS LAB R PT Prothrombin Time 15.1 High 9.0-12.9 s Result Comment: A hematocrit value greater than 55% may lead to inaccurate results in coagulation testing. Patients having hematocrit values >55% require a special collection tube for coagulation studies. Please contact the laboratory at [phone] for redraw instructions. LAB INR INR 1.3 [...] heart valves: 3 - 4.5 PERFORMED BY: [place] [address] PATHOLOGIST URGENT CARE NURSE PRACTITIONER MEERA GRIFFITHS M.D. Performed By: #### PT #### [address] GLUCOSE POCT GLUCOMETERS Collected: 03/23/2024 10:59 AM Status: F Source: [facility] TYPE CODE TESTS RESULT OUT OF RANGE REFERENCE UNITS LAB GLUPOC Glucose Poc Glucometers 295 mg/dL Result Comment: Random Gluco se Reference Range is dependent on time and content of last meal. Glucose of more than 200 mg/dL in a nonstressed, ambulatory subject supports the diagnosis of Diabetes Mellitus. LAB COMM1 Commemt1 Glu2: Cleaned Meter Result Comment: PERFORMED BY : [place] [address] PATHOLOGIST URGENT CARE NURSE PRACTITIONER MEERA GRIFFITHS M.D. Performed By: #### GLULS ### # Point of Care testing , COMPLETE BLOOD COUNT AUTO DIFF Collected: 03/23/2024 7:23 AM Status: F Source: F [facility] TYPE CODE TESTS RESULT OUT OF [...] 0.0-0.2 10*3/uL Result Comment: PERFORMED BY : [address] [address] PATHOLOGIST URGENT CARE NURSE PRACTITIONER MEERA GRIFFITHS M.D. Performed By: #### BMP, CBC #### [facility] [address] [place] [id number] [facility] BASIC METABOLIC PANEL Collected: 03/23/2024 7:23 AM Status: F Source: [facility] TYPE CODE TESTS RESULT OUT OF [...] Pharmacy 54.54 Result Comment: PERFORMED BY : [place] [address] PATHOLOGIST URGENT CARE NURSE PRACTITIONER MEERA GRIFFITHS M.D. Performed By: #### BMP, CBC #### [address] GLUCOSE POCT GLUCOMETERS Collected: 03/23/2024 6:26 A M Status: F Source: [facility] TYPE CODE TESTS RESULT OUT OF RANGE REFERENCE UNITS LAB GLUPOC Glucose Poc Glucometers 221 mg/dL Result Comment: Random Gluco se Reference Range is dependent on time and content of last meal. Glucose of more than 200 mg/dL in a nonstressed, ambulatory subject supports the diagnosis of Diabetes Mellitus. PERFORMED BY: [place] [address] PATHOLOGIST URGENT CARE NURSE PRACTITIONER MEERA GRIFFITHS M.D. Performed By: #### GLULS ### # Point of Care testing , GLUCOSE POCT GLUCOMETERS Collected: 03/23/2024 1:31 A M Status: F Source: [facility] TYPE CODE TESTS RESULT OUT OF RANGE REFERENCE UNITS LAB GLUPOC Glucose Poc Glucometers 249 mg/dL Result Comment: Random Gluco se Reference Range is dependent on time and content of last meal. Glucose of more than 200 mg/dL in a nonstressed, ambulatory subject supports the diagnosis of Diabetes Mellitus. PERFORMED BY: [address] [place] [address] PATHOLOGIST URGENT CARE NURSE PRACTITIONER MEERA GRIFFITHS M.D. Performed By: #### GLULS ### # Point of Care testing , GLUCOSE POCT GLUCOMETERS Collected: 03/22/2024 8:19 P M Status: F Source: [facility] TYPE CODE TESTS RESULT OUT OF RANGE REFERENCE UNITS LAB GLUPOC Glucose Poc Glucometers 323 mg/dL Result Comment: Random Gluco se Reference Range is dependent on time and content of last meal. Glucose of more than 200 mg/dL in a nonstressed, ambulatory subject supports the diagnosis of Diabetes Mellitus. PERFORMED BY: [address] [address] PATHOLOGIST URGENT CARE NURSE PRACTITIONER MEERA GRIFFITHS M.D. Performed By: #### GLULS ### # Point of Care testing , GLUCOSE POCT GLUCOMETERS Collected: 03/22/2024 4:17 P M Status: F Source: [facility] TYPE CODE TESTS RESULT OUT OF RANGE REFERENCE UNITS LAB GLUPOC Glucose Poc Glucometers 339 mg/dL Result Comment: Random Gluco se Reference Range is dependent on time and content of last meal. Glucose of more than 200 mg/dL in a nonstressed, ambulatory subject supports the diagnosis of Diabetes Mellitus. PERFORMED BY: [address] [place] [address] PATHOLOGIST URGENT CARE NURSE PRACTITIONER MEERA GRIFFITHS M.D. Performed By: #### GLULS ### # Point of Care testing , GLUCOSE POCT GLUCOMETERS Collected: 03/22/2024 11:43 AM Status: F Source: [facility] TYPE CODE TESTS RESULT OUT OF RANGE REFERENCE UNITS LAB GLUPOC Glucose Poc Glucometers 252 mg/dL Result Comment: Random Gluco se Reference Range is dependent on time and content of last meal. Glucose of more than 200 mg/dL in a nonstressed, ambulatory subject supports the diagnosis of Diabetes Mellitus. PERFORMED BY: [facility] [place] [address] PATHOLOGIST URGENT CARE NURSE PRACTITIONER MEERA GRIFFITHS M.D. Performed By: #### GLULS ### # Point of Care testing , COMPLETE BLOOD COUNT AUTO DIFF Collected: 03/22/2024 6:32 AM Status: F Source: F [facility] TYPE CODE TESTS RESULT OUT OF [...] 0.0-0.2 10*3/uL Result Comment: PERFORMED BY : [facility] [address] [place] [address] PATHOLOGIST URGENT CARE NURSE PRACTITIONER MEERA GRIFFITHS M.D. Performed By: #### PHOS, CMP , CBC, MG #### [facility] [address] [place] [id number] [facility] COMPREHENSIVE METABOLIC PANEL Collected: 03/22/2024 6 :32 AM Status: F Source: [facility] TYPE CODE TESTS RESULT OUT OF [...] #### PHOS, CMP , CBC, MG #### [facility] [address] [place] [id number] [facility] PHOSPHORUS Collected: 6:32 AM Status: F Source: [facility] TYPE CODE TESTS RESULT OUT OF RANGE REFERENCE UNITS LAB PHOS Phosphorus 3.7 Normal 2.5-4.5 mg/dL Performed By: #### PHOS, CMP , CBC, MG #### [facility] [address] [place] [id number] [facility] MAGNESIUM Collected: 6:32 AM Status: F Source: [facility] TYPE CODE TESTS RESULT OUT OF RANGE REFERENCE UNITS LAB MG Magnesium 1.6 Low 1.9-2.7 mg/dL Result Comment: PERFORMED BY : [place] [address] PATHOLOGIST URGENT CARE NURSE PRACTITIONER MEERA GRIFFITHS M.D. Performed By: #### PHOS, CMP , CBC, MG #### [facility] [address] [place], [place] [id number] [facility] GLUCOSE POCT GLUCOMETERS Collected: 03/22/2024 6:29 A M Status: F Source: [facility] TYPE CODE TESTS RESULT OUT OF RANGE REFERENCE UNITS LAB GLUPOC Glucose Poc Glucometers 264 mg/dL Result Comment: Random Gluco se Reference Range is dependent on time and content of last meal. Glucose of more than 200 mg/dL in a nonstressed, ambulatory subject supports the diagnosis of Diabetes Mellitus. LAB COMM1 Commemt1 Glu2: Cleaned Meter Result Comment: PERFORMED BY : [place] [address] PATHOLOGIST URGENT CARE NURSE PRACTITIONER MEERA GRIFFITHS M.D. Performed By: #### GLULS ### # Point of Care testing , GLUCOSE POCT GLUCOMETERS Collected: 03/22/2024 2:24 A M Status: F Source: [facility] TYPE CODE TESTS RESULT OUT OF RANGE REFERENCE UNITS LAB GLUPOC Glucose Poc Glucometers 260 mg/dL Result Comment: Random Gluco se Reference Range is dependent on time and content of last meal. Glucose of more than 200 mg/dL in a nonstressed, ambulatory subject supports the diagnosis of Diabetes Mellitus. PERFORMED BY: [place] [id number] PATHOLOGIST URGENT CARE NURSE PRACTITIONER MEERA GRIFFITHS M.D. Performed By: #### GLULS ### # Point of Care testing , GLUCOSE POCT GLUCOMETERS Collected: 03/21/2024 8:48 P M Status: F Source: [facility] TYPE CODE TESTS RESULT OUT OF RANGE REFERENCE UNITS LAB GLUPOC Glucose Poc Glucometers 387 mg/dL Result Comment: Random Gluco se Reference Range is dependent on time and content of last meal. Glucose of more than 200 mg/dL in a nonstressed, ambulatory subject supports the diagnosis of Diabetes Mellitus. LAB COMM1 Commemt1 Glu2: Cleaned Meter Result Comment: PERFORMED BY : [address] [place] [address] PATHOLOGIST URGENT CARE NURSE PRACTITIONER MEERA GRIFFITHS M.D. Performed By: #### GLULS ### # Point of Care testing , GLUCOSE POCT GLUCOMETERS Collected: 03/21/2024 4:28 P M Status: F Source: [facility] TYPE CODE TESTS RESULT OUT OF [...] Glu2: Will R epeat Test PERFORMED BY: [address] [place] [address] PATHOLOGIST URGENT CARE NURSE PRACTITIONER MEERA GRIFFITHS M.D. Performed By: #### GLULS ### # Point of Care testing , GLUCOSE POCT GLUCOMETERS Collected: 03/21/2024 11:28 AM Status: F Source: [facility] TYPE CODE TESTS RESULT OUT OF RANGE REFERENCE UNITS LAB GLUPOC Glucose Poc Glucometers 245 mg/dL Result Comment: Random Gluc ose Reference Range is dependent on time and content of last meal. Glucose of more than 200 mg/dL in a nonstressed, ambulatory subject supports the diagnosis of Diabetes Mellitus. PERFORMED BY: [address] [place] [address] PATHOLOGIST URGENT CARE NURSE PRACTITIONER MEERA GRIFFITHS M.D. Performed By: #### GLULS ### # Point of Care testing , VANCOMYCIN,PEAK Collected: 11:22 AM Status: F Source: [facility] Order Comment: Comment ?DRAW 1 HOUR AFTER INFUSION COMPLETES Date of last dose?: 20240319 Time of last dose?: 2129 TYPE CODE TESTS RESULT OUT OF RANGE REFERENCE UNITS LAB VANCP Vancomycin,P eak 50.0 High 20.0-40.0 ug/mL Result Comment: Last dose: - PERFORMED BY: [place] [address] PATHOLOGIST URGENT CARE NURSE PRACTITIONER MEERA GRIFFITHS M.D. Performed By: #### VANCP ### # [place] [id number] [facility] GLUCOSE POCT GLUCOMETERS Collected: 03/21/2024 6:53 A M Status: F Source: [facility] TYPE CODE TESTS RESULT OUT OF RANGE REFERENCE UNITS LAB GLUPOC Glucose Poc Glucometers 191 mg/dL Result Comment: Random Gluco se Reference Range is dependent on time and content of last meal. Glucose of more than 200 mg/dL in a nonstressed, ambulatory subject supports the diagnosis of Diabetes Mellitus. LAB COMM1 Commemt1 Glu2: Cleaned Meter Result Comment: PERFORMED BY : [place] [address] PATHOLOGIST URGENT CARE NURSE PRACTITIONER MEERA GRIFFITHS M.D. Performed By: #### GLULS ### # Point of Care testing , COMPREHENSIVE METABOLIC PANEL Collected: 03/21/2024 6 :38 AM Status: F Source: [facility] TYPE CODE TESTS RESULT OUT OF [...] ESR, CMP, CBC, PHOS, CRP, MG #### [address] PHOSPHORUS Collected: 6:38 AM Status: F Source: [facility] TYPE CODE TESTS RESULT OUT OF RANGE REFERENCE UNITS LAB PHOS Phosphorus 3.5 Normal 2.5-4.5 mg/dL Performed By: #### ESR, CMP, CBC, PHOS, CRP, MG #### [address] MAGNESIUM Collected: 6:38 AM Status: F Source: [facility] TYPE CODE TESTS RESULT OUT OF RANGE REFERENCE UNITS LAB MG Magnesium 1.5 Low 1.9-2.7 mg/dL Performed By: #### ESR, CMP, CBC, PHOS, CRP, MG #### [address] C-REACTIVE PROTEIN Collected: 03/21/2024 6:38 AM Sta tus: F Source: [facility] TYPE CODE TESTS RESULT OUT OF RANGE REFERENCE UNITS LAB CRP C-Reactive Protein 6.5 High 0.0-0.5 mg/dL Result Comment: PERFORMED BY : [place] [address] PATHOLOGIST URGENT CARE NURSE PRACTITIONER MEERA GRIFFITHS M.D. Performed By: #### ESR, CMP, CBC, PHOS, CRP, MG #### [address] COMPLETE BLOOD COUNT AUTO DIFF Collected: 03/21/2024 6:38 AM Status: F Source: F [facility] TYPE CODE TESTS RESULT OUT OF [...] ESR, CMP, CBC, PHOS, CRP, MG #### [facility] [address] [place] [address] [facility] ERYTHROCYTE SEDIMENTATION RATE Collected: 03/21/2024 6:38 AM Status: F Source: [facility] TYPE CODE TESTS RESULT OUT OF RANGE REFERENCE UNITS LAB ESR Erythrocyte Sedimentation Rate 116 High 0-29 Result Comment: PERFORMED BY : [place] [id number] PATHOLOGIST URGENT CARE NURSE PRACTITIONER MEERA GRIFFITHS M.D. Performed By: #### ESR, CMP, CBC, PHOS, CRP, MG #### [place] [id number] [facility] GLUCOSE POCT GLUCOMETERS Collected: 03/21/2024 2:23 A M Status: F Source: [facility] TYPE CODE TESTS RESULT OUT OF RANGE REFERENCE UNITS LAB GLUPOC Glucose Poc Glucometers 345 mg/dL Result Comment: Random Gluco se Reference Range is dependent on time and content of last meal. Glucose of more than 200 mg/dL in a nonstressed, ambulatory subject supports the diagnosis of Diabetes Mellitus. LAB COMM1 Commemt1 Glu2: Cleaned Meter Result Comment: PERFORMED BY : [address] [address] PATHOLOGIST URGENT CARE NURSE PRACTITIONER MEERA GRIFFITHS M.D. Performed By: #### GLULS ### # Point of Care testing , GLUCOSE POCT GLUCOMETERS Collected: 03/20/2024 9:30 P M Status: F Source: [facility] TYPE CODE TESTS RESULT OUT OF RANGE REFERENCE UNITS LAB GLUPOC Glucose Poc Glucometers 460 High Off Scale mg/dL Result Comment: Random Gluco se Reference Range is dependent on time and content of last meal. Glucose of more than 200 mg/dL in a nonstressed, ambulatory subject supports the diagnosis of Diabetes Mellitus. LAB COMM1 Commemt1 Result Comment: Glu2: WILL N OTIFY DR/WATER REGULATOR AND VALVE REPAIRER COMM2 Commemt2 Cleaned Meter Result Comment: PERFORMED BY : [address] [address] PATHOLOGIST URGENT CARE NURSE PRACTITIONER MEERA GRIFFITHS M.D. Performed By: #### GLULS ### # Point of Care testing , GLUCOSE POCT GLUCOMETERS Collected: 03/20/2024 9:28 P M Status: F Source: [facility] TYPE CODE TESTS RESULT OUT OF RANGE REFERENCE UNITS LAB GLUPOC Glucose Poc Glucometers 455 High Off Scale mg/dL Result Comment: Random Gluco se Reference Range is dependent on time and content of last meal. Glucose of more than 200 mg/dL in a nonstressed, ambulatory subject supports the diagnosis of Diabetes Mellitus. LAB COMM1 Commemt1 Result Comment: Glu2: WILL N OTIFY DR/WATER REGULATOR AND VALVE REPAIRER COMM2 Commemt2 Will Repeat Test Result Comment: PERFORMED BY : [address] [address] PATHOLOGIST URGENT CARE NURSE PRACTITIONER MEERA GRIFFITHS M.D. Performed By: #### GLULS ### # Point of Care testing , GLUCOSE POCT GLUCOMETERS Collected: 03/20/2024 4:21 P M Status: F Source: [facility] TYPE CODE TESTS RESULT OUT OF RANGE REFERENCE UNITS LAB GLUPOC Glucose Poc Glucometers 269 mg/dL Result Comment: Random Gluco se Reference Range is dependent on time and content of last meal. Glucose of more than 200 mg/dL in a nonstressed, ambulatory subject supports the diagnosis of Diabetes Mellitus. PERFORMED BY: [address] [address] PATHOLOGIST URGENT CARE NURSE PRACTITIONER MEERA GRIFFITHS M.D. Performed By: #### GLULS ### # Point of Care testing , GLUCOSE POCT GLUCOMETERS Collected: 03/20/2024 11:46 AM Status: F Source: [facility] TYPE CODE TESTS RESULT OUT OF RANGE REFERENCE UNITS LAB GLUPOC Glucose Poc Glucometers 226 mg/dL Result Comment: Random Gluco se Reference Range is dependent on time and content of last meal. Glucose of more than 200 mg/dL in a nonstressed, ambulatory subject supports the diagnosis of Diabetes Mellitus. PERFORMED BY: [facility] [address] [place] [address] PATHOLOGIST URGENT CARE NURSE PRACTITIONER MEERA GRIFFITHS M.D. Performed By: #### GLULS ### # Point of Care testing , GLUCOSE POCT GLUCOMETERS Collected: 03/20/2024 6:35 A M Status: F Source: [facility] TYPE CODE TESTS RESULT OUT OF RANGE REFERENCE UNITS LAB GLUPOC Glucose Poc Glucometers 120 mg/dL Result Comment: Random Gluco se Reference Range is dependent on time and content of last meal. Glucose of more than 200 mg/dL in a nonstressed, ambulatory subject supports the diagnosis of Diabetes Mellitus. PERFORMED BY: [facility] [place] [address] PATHOLOGIST URGENT CARE NURSE PRACTITIONER MEERA GRIFFITHS M.D. Performed By: #### GLULS ### # Point of Care testing , COMPLETE BLOOD COUNT AUTO DIFF Collected: 03/20/2024 4:00 AM Status: F Source: F [facility] TYPE CODE TESTS RESULT OUT OF [...] 0.0-0.2 10*3/uL Result Comment: PERFORMED BY : [facility] [address] [place] [address] PATHOLOGIST URGENT CARE NURSE PRACTITIONER MEERA GRIFFITHS M.D. Performed By: #### PHOS, CMP , MG, CBC #### [facility] [address] [place] [id number] [facility] COMPREHENSIVE METABOLIC PANEL Collected: 03/20/2024 4 :00 AM Status: F Source: [facility] TYPE CODE TESTS RESULT OUT OF [...] #### PHOS, CMP , MG, CBC #### [facility] [address] [place] [id number] [facility] PHOSPHORUS Collected: 4:00 AM Status: F Source: [facility] TYPE CODE TESTS RESULT OUT OF RANGE REFERENCE UNITS LAB PHOS Phosphorus 3.2 Normal 2.5-4.5 mg/dL Performed By: #### PHOS, CMP , MG, CBC #### [place] [id number] [facility] MAGNESIUM Collected: 4:00 AM Status: F Source: [facility] TYPE CODE TESTS RESULT OUT OF RANGE REFERENCE UNITS LAB MG Magnesium 1.8 Low 1.9-2.7 mg/dL Result Comment: PERFORMED BY : [place] [address] PATHOLOGIST URGENT CARE NURSE PRACTITIONER MEERA GRIFFITHS M.D. Performed By: #### PHOS, CMP , MG, CBC #### [place] [id number] [facility] GLUCOSE POCT GLUCOMETERS Collected: 03/19/2024 9:07 P M Status: F Source: [facility] TYPE CODE TESTS RESULT OUT OF RANGE REFERENCE UNITS LAB GLUPOC Glucose Poc Glucometers 313 mg/dL Result Comment: Random Gluco se Reference Range is dependent on time and content of last meal. Glucose of more than 200 mg/dL in a nonstressed, ambulatory subject supports the diagnosis of Diabetes Mellitus. PERFORMED BY: [place] [address] PATHOLOGIST URGENT CARE NURSE PRACTITIONER MEERA GRIFFITHS M.D. Performed By: #### GLULS ### # Point of Care testing , VANCOMYCIN,TROUGH Collected: 7:20 PM Status: F Source: [facility] Order Comment: Time of next dose? 629 Date of last dose?: 20240317 Time of last dose?: 1629 TYPE CODE TESTS RESULT OUT OF RANGE REFERENCE UNITS LAB VANCT Vancomycin, Trough 16.9 Normal 10.0-20.0 ug/mL Result Comment: Last dose: - PERFORMED BY: [place] [id number] PATHOLOGIST URGENT CARE NURSE PRACTITIONER MEERA GRIFFITHS M.D. Performed By: #### VANCT ### # [address] [place] [address] [facility] GLUCOSE POCT GLUCOMETERS Collected: 03/19/2024 5:51 P M Status: F Source: [facility] TYPE CODE TESTS RESULT OUT OF RANGE REFERENCE UNITS LAB GLUPOC Glucose Poc Glucometers 286 mg/dL Result Comment: Random Gluco se Reference Range is dependent on time and content of last meal. Glucose of more than 200 mg/dL in a nonstressed, ambulatory subject supports the diagnosis of Diabetes Mellitus. PERFORMED BY: [place] [address] PATHOLOGIST URGENT CARE NURSE PRACTITIONER MEERA GRIFFITHS M.D. Performed By: #### GLULS ### # Point of Care testing , AEROBIC CULTURE Observed: 03/19/2024 5:34 PM Status: F Source: [facility] Comment abdominal wound tiss ue culture ORGANISM: [...] RESISTANT TO ALL B-LACTAM DRUGS. PERFORMED BY: [place] [id number] PATHOLOGIST URGENT CARE NURSE PRACTITIONER MEERA GRIFFITHS M.D. Performed By: #### AERC #### [facility] [address] [place] [address] [place] GLUCOSE POCT GLUCOMETERS Collected: 03/19/2024 3:11 P M Status: F Source: [facility] TYPE CODE TESTS RESULT OUT OF RANGE REFERENCE UNITS LAB GLUPOC Glucose Poc Glucometers 284 mg/dL Result Comment: Random Gluco se Reference Range is dependent on time and content of last meal. Glucose of more than 200 mg/dL in a nonstressed, ambulatory subject supports the diagnosis of Diabetes Mellitus. LAB COMM1 Commemt1 Glu2: Cleaned Meter Result Comment: PERFORMED BY : [place] [address] PATHOLOGIST URGENT CARE NURSE PRACTITIONER MEERA GRIFFITHS M.D. Performed By: #### GLULS ### # Point of Care testing , HCG,URINE Collected: 03/19/2024 2:11 PM Status: F Source: [facility] TYPE CODE TESTS RESULT OUT OF RANGE REFERENCE UNITS LAB UHCGQ HCG Qualitative,U rine Negative Result Comment: PERFORMED BY : [place] [address] PATHOLOGIST URGENT CARE NURSE PRACTITIONER MEERA GRIFFITHS M.D. Performed By: #### UHCG #### [facility] [address] [place], [place] [id number] [place] GLUCOSE POCT GLUCOMETERS Collected: 03/19/2024 12:03 PM Status: F Source: [facility] TYPE CODE TESTS RESULT OUT OF RANGE REFERENCE UNITS LAB GLUPOC Glucose Poc Glucometers 301 mg/dL Result Comment: Random Gluco se Reference Range is dependent on time and content of last meal. Glucose of more than 200 mg/dL in a nonstressed, ambulatory subject supports the diagnosis of Diabetes Mellitus. PERFORMED BY: [place] [id number] PATHOLOGIST URGENT CARE NURSE PRACTITIONER MEERA GRIFFITHS M.D. Performed By: #### GLULS ### # Point of Care testing , ECG 12 LEAD ECG Observed: 03/19/2024 11:25 AM Status: COMPLETED Source: [facility] Main [address] [address] Electrocardiograph Report Signed Patient: Mary Jane Schaeffer MR#: [id number] : 1970 Acct:[id number] Age/Sex: 53 / F ADM Date: 03/17/24 Loc: Room: [address] [place] [address] Type: ADM IN Attending Dr: Audra Wheat [...] change was found Confirmed by TERESA WALKER [facility], HUSSAIN ([id number]) on 03/19/2024 12:58:05 PM Referred By: Electronically Signed By: HUSSAIN MOORE MD FAC Transcribed By: MUS Signed By Hussain Moore MD, FACC 03/19/24 1258 VANCOMYCIN,PEAK Collected: 9:00 AM Status: F Source: [facility] Order Comment: Comment ?DRAW 1 HOUR AFTER INFUSION COMPLETES Date of last dose?: 20240317 Time of last dose?: 1630 TYPE CODE TESTS RESULT OUT OF RANGE REFERENCE UNITS LAB VANCP Vancomycin, Peak 34.9 Normal 20.0-40.0 ug/mL Result Comment: Last dose: - PERFORMED BY: [place] [address] PATHOLOGIST URGENT CARE NURSE PRACTITIONER MEERA GRIFFITHS M.D. Performed By: #### VANCP ### # [address] GLUCOSE POCT GLUCOMETERS Collected: 03/19/2024 6:35 A M Status: F Source: [facility] TYPE CODE TESTS RESULT OUT OF RANGE REFERENCE UNITS LAB GLUPOC Glucose Poc Glucometers 171 mg/dL Result Comment: Random Gluco se Reference Range is dependent on time and content of last meal. Glucose of more than 200 mg/dL in a nonstressed, ambulatory subject supports the diagnosis of Diabetes Mellitus. PERFORMED BY: [facility] [place] [address] PATHOLOGIST URGENT CARE NURSE PRACTITIONER MEERA GRIFFITHS M.D. Performed By: #### GLULS ### # Point of Care testing , COMPLETE BLOOD COUNT AUTO DIFF Collected: 03/19/2024 6:05 AM Status: F Source: F [facility] TYPE CODE TESTS RESULT OUT OF [...] 0.0-0.2 10*3/uL Result Comment: PERFORMED BY : [place] [id number] PATHOLOGIST URGENT CARE NURSE PRACTITIONER MEERA GRIFFITHS M.D. Performed By: #### MG, PHOS, CBC, CMP #### [facility] [address] [place] [id number] [facility] COMPREHENSIVE METABOLIC PANEL Collected: 03/19/2024 6 :05 AM Status: F Source: [facility] TYPE CODE TESTS RESULT OUT OF [...] By: #### MG, PHOS, CBC, CMP #### [facility] [address] [place] [address] [facility] PHOSPHORUS Collected: 6:05 AM Status: F Source: [facility] TYPE CODE TESTS RESULT OUT OF RANGE REFERENCE UNITS LAB PHOS Phosphorus 3.3 Normal 2.5-4.5 mg/dL Performed By: #### MG, PHOS, CBC, CMP #### [facility] [address] [place] [address] MAGNESIUM Collected: 6:05 AM Status: F Source: [facility] TYPE CODE TESTS RESULT OUT OF RANGE REFERENCE UNITS LAB MG Magnesium 1.6 Low 1.9-2.7 mg/dL Result Comment: PERFORMED BY : [place] [address] PATHOLOGIST URGENT CARE NURSE PRACTITIONER MEERA GRIFFITHS M.D. Performed By: #### MG, PHOS, CBC, CMP #### [facility] [address] [place], [place] [address] [facility] GLUCOSE POCT GLUCOMETERS Collected: 03/19/2024 3:02 A M Status: F Source: [facility] TYPE CODE TESTS RESULT OUT OF RANGE REFERENCE UNITS LAB GLUPOC Glucose Poc Glucometers 213 mg/dL Result Comment: Random Gluco se Reference Range is dependent on time and content of last meal. Glucose of more than 200 mg/dL in a nonstressed, ambulatory subject supports the diagnosis of Diabetes Mellitus. PERFORMED BY: [place] [address] PATHOLOGIST URGENT CARE NURSE PRACTITIONER MEERA GRIFFITHS M.D. Performed By: #### GLULS ### # Point of Care testing , L Observed: 03/19/2024 12:00 AM Status: F Source: [facility] Specimen: [id number] Received: 03/22/24 Status: TIEN Rose Num: [id number] Spec Type: Surgical Subm Dr: Troy Moya MD Tissues: A Debridement-Skin/Other Than Skin (DEBRIDEMENT OF ABD WOUND) Procedures: HE, Gross/Micro L3 Age/ Patient Sex Location Account Attending Physician [facility],Authumn D 53/F 3T [id number] Billy Nickerson MD SPEC NUM: [id number] RECD: 03/22/24 STATUS: TIEN ROSE NUM: [id number] KEVIN: 03/19/24- SUBM DR: Troy Moya MD ENTERED: 03/22/24-[address] [facility] [address]: SPEC TYPE: Surgical DEPT: S ENTERED BY: [id number] [facility] BY: [id number] ORDERED: ANA, Gross/Micro L3 ORDERED: ANA, Gross/Micro [...] in aggregate. The specimen is serially sectioned. Washer Engineer Helper sections are submitted in cassette A1. Microscopic Description Microscopic examination is performed. CPT Codes 56797 ----- ------- ----- ------- Specimen: [id number] Received: 03/22/24 Status: TIEN Rose Num: [id number] Spec Type: Surgical Subm Dr: Troy Moya MD Tissues: A Debridement-Skin/Other Than Skin (DEBRIDEMENT OF ABD WOUND) Procedures: ANA Gross/Micro L3 ----- ------- Patient: Mary Jane Schaeffer [id number] (Continued) ----- ------- Signed (signature on file) Humberto Garcia MD 03/24/24 1223 GLUCOSE POCT GLUCOMETERS Collected: 03/18/2024 9:03 P M Status: F Source: [facility] TYPE CODE TESTS RESULT OUT OF RANGE REFERENCE UNITS LAB GLUPOC Glucose Poc Glucometers 349 mg/dL Result Comment: Random Gluco se Reference Range is dependent on time and content of last meal. Glucose of more than 200 mg/dL in a nonstressed, ambulatory subject supports the diagnosis of Diabetes Mellitus. PERFORMED BY: [facility] [address] [place] [address] PATHOLOGIST URGENT CARE NURSE PRACTITIONER MEERA GRIFFITHS M.D. Performed By: #### GLULS ### # Point of Care testing , GLUCOSE POCT GLUCOMETERS Collected: 03/18/2024 4:22 P M Status: F Source: [facility] TYPE CODE TESTS RESULT OUT OF RANGE REFERENCE UNITS LAB GLUPOC Glucose Poc Glucometers 247 mg/dL Result Comment: Random Gluco se Reference Range is dependent on time and content of last meal. Glucose of more than 200 mg/dL in a nonstressed, ambulatory subject supports the diagnosis of Diabetes Mellitus. PERFORMED BY: [facility] [address] [facility] [place] [address] PATHOLOGIST URGENT CARE NURSE PRACTITIONER MEERA GRIFFITHS M.D. Performed By: #### GLULS ### # Point of Care testing , GLUCOSE POCT GLUCOMETERS Collected: 03/18/2024 11:59 AM Status: F Source: [facility] TYPE CODE TESTS RESULT OUT OF RANGE REFERENCE UNITS LAB GLUPOC Glucose Poc Glucometers 255 mg/dL Result Comment: Random Gluco se Reference Range is dependent on time and content of last meal. Glucose of more than 200 mg/dL in a nonstressed, ambulatory subject supports the diagnosis of Diabetes Mellitus. PERFORMED BY: [place] [address] PATHOLOGIST URGENT CARE NURSE PRACTITIONER MEERA GRIFFITHS M.D. Performed By: #### GLULS ### # Point of Care testing , SUPERFICIAL WOUND CULTURE Observed: 03/02 9:45 AM Status: F Source: [facility] MDRO results called at 1005 on 03/20/24 [...] RESISTANT TO ALL B-LACTAM DRUGS. PERFORMED BY: [place] [address] PATHOLOGIST URGENT CARE NURSE PRACTITIONER MEERA GRIFFITHS M.D. Performed By: #### CUSUP ### # [place] [id number] [facility] COMPLETE BLOOD COUNT AUTO DIFF Collected: 03/18/2024 6:48 AM Status: F Source: F [facility] TYPE CODE TESTS RESULT OUT OF [...] 0.0-0.2 10*3/uL Result Comment: PERFORMED BY : [facility] [address] [place] [address] PATHOLOGIST URGENT CARE NURSE PRACTITIONER MEERA GRIFFITHS M.D. Performed By: #### CBC, STEPHEN, TSH3, FE and TIBC, MG, PHOS, CMP, [id number] #### [facility] [address] [place], [place] [address] COMPREHENSIVE METABOLIC PANEL Collected: 03/18/2024 6 :48 AM Status: F Source: [facility] TYPE CODE TESTS RESULT OUT OF [...] TSH3, FE and TIBC, MG, PHOS, CMP, [id number] #### [facility] [address] PHOSPHORUS Collected: 6:48 AM Status: F Source: [facility] TYPE CODE TESTS RESULT OUT OF RANGE REFERENCE UNITS LAB PHOS Phosphorus 3.9 Normal 2.5-4.5 mg/dL Performed By: #### CBC, STEPHEN, TSH3, FE and TIBC, MG, PHOS, CMP, [id number] #### [facility] [address] MAGNESIUM Collected: 6:48 AM Status: F Source: [facility] TYPE CODE TESTS RESULT OUT OF RANGE REFERENCE UNITS LAB MG Magnesium 1.6 Low 1.9-2.7 mg/dL Result Comment: PERFORMED BY : [place] [address] PATHOLOGIST URGENT CARE NURSE PRACTITIONER MEERA GRIFFITHS M.D. Performed By: #### CBC, STEPHEN, TSH3, FE and TIBC, MG, PHOS, CMP, [id number] #### [address] IRON AND TIBC PROFILE Collected: 03/18/2024 6:48 AM Status: F Source: [facility] TYPE CODE TESTS RESULT OUT OF RANGE REFERENCE UNITS LAB FE Iron 23 Low 50-212 ug/dL LAB TIBCT Total Iron Binding Capacity 210 Low 255-450 ug/dL LAB FESAT% % Iron Saturation 11.0 Low 20-50 % LAB TRANS Transferrin 150 Low 203-362 mg/dL Performed By: #### CBC, STEPHEN, TSH3, FE and TIBC, MG, PHOS, CMP, [id number] #### [address] FERRITIN Collected: 6:48 AM Status: F Source: [facility] TYPE CODE TESTS RESULT OUT OF RANGE REFERENCE UNITS LAB STEPHEN Ferritin 491.1 High 11.0-306.8 ng/mL Performed By: #### CBC, STEPHEN, TSH3, FE and TIBC, MG, PHOS, CMP, [id number] #### [facility] [address] [place] [address] VIT. B12/FOLATE PROFILE Collected: 03/02 6:48 AM Status: F Source: [facility] TYPE CODE TESTS RESULT OUT OF [...] TSH3, FE and TIBC, MG, PHOS, CMP, [id number] #### [address] THYROID STIMULATING HORMONE Collected: 03/18/2024 6:4 8 AM Status: F Source: [facility] TYPE CODE TESTS RESULT OUT OF RANGE REFERENCE UNITS LAB TSH3 Thyroid Stimulating Hormone 8.44 High 0.45-5.33 u[iU]/mL Result Comment: PERFORMED BY : [place] [address] PATHOLOGIST URGENT CARE NURSE PRACTITIONER MEERA GRIFFITHS M.D. Performed By: #### CBC, STEPHEN, TSH3, FE and TIBC, MG, PHOS, CMP, [id number] #### [address] GLUCOSE POCT GLUCOMETERS Collected: 03/18/2024 1:53 A M Status: F Source: [facility] TYPE CODE TESTS RESULT OUT OF RANGE REFERENCE UNITS LAB GLUPOC Glucose Poc Glucometers 134 mg/dL Result Comment: Random Gluco se Reference Range is dependent on time and content of last meal. Glucose of more than 200 mg/dL in a nonstressed, ambulatory subject supports the diagnosis of Diabetes Mellitus. PERFORMED BY: [place] [address] PATHOLOGIST URGENT CARE NURSE PRACTITIONER MEERA GRIFFITHS M.D. Performed By: #### GLULS ### # Point of Care testing , CT ABDOMEN PELVIS WO CON Observed: 03/17 8:33 PM Status: COMPLETED Source: [facility] Main [place] [id number] CT Scan Report Signed Patient: Mary Jane Schaeffer MR#: [id number] : 1970 Acct:[id number] Age/Sex: 53 / F ADM Date: 03/17/24 Loc: ER Room: Type: [facility] ER Attending Dr: Copies to: LUBNA Blount [...] Patino Jr., D.O.03/17/2024 8:35 PM Dictation Location: [place] [address] Transcribed By: [facility] 03/17/242034 Dictated By: Nino Patino Jr, DO 03/17/242032 Signed By: <Electronically signed by Nino Patino Jr, DO in OV> 03/17/242034 SUPERFICIAL WOUND CULTURE Observed: 03/02 8:11 PM Status: F Source: [facility] MDRO results called at 1005 on 03/20/24 [...] RESISTANT TO ALL B-LACTAM DRUGS. PERFORMED BY: [place] [address] PATHOLOGIST URGENT CARE NURSE PRACTITIONER MEERA GRIFFITHS M.D. Performed By: #### CUSUP ### # [address] BLOOD CULTURE Observed: 03/17/2024 6:20 PM Status: F Source: [facility] NO GROWTH 5 DAYS PERFORMED BY: [place] [address] PATHOLOGIST URGENT CARE NURSE PRACTITIONER MEERA GRIFFITHS M.D. Performed By: #### CMP, CUBL D, CBC #### [address] LACTIC ACID Collected: 5:43 PM Status: F Source: [facility] TYPE CODE TESTS RESULT OUT OF RANGE REFERENCE UNITS LAB LACTIC Lactic Acid 1.9 0.5-2.2 mmol/L Result Comment: PERFORMED BY : [place] [address] PATHOLOGIST URGENT CARE NURSE PRACTITIONER MEERA GRIFFITHS M.D. Performed By: #### LACTIC, E SR, CRP #### [place] [id number] [facility] C-REACTIVE PROTEIN Collected: 03/17/2024 5:43 PM Sta tus: F Source: [facility] TYPE CODE TESTS RESULT OUT OF RANGE REFERENCE UNITS LAB CRP C-Reactive Protein 9.0 High 0.0-0.5 mg/dL Result Comment: PERFORMED BY : [place] [address] PATHOLOGIST URGENT CARE NURSE PRACTITIONER MEERA GRIFFITHS M.D. Performed By: #### LACTIC, E SR, CRP #### [facility] [address] [place], [place] [phone] [facility] ERYTHROCYTE SEDIMENTATION RATE Collected: 03/17/2024 5:43 PM Status: F Source: [facility] TYPE CODE TESTS RESULT OUT OF RANGE REFERENCE UNITS LAB ESR Erythrocyte Sedimentation Rate 114 High 0-29 Result Comment: PERFORMED BY : [place] [address] PATHOLOGIST URGENT CARE NURSE PRACTITIONER MEERA GRIFFITHS M.D. Performed By: #### LACTIC, E SR, CRP #### [facility] [address] [place], [place] [address] [facility] COMPLETE BLOOD COUNT AUTO DIFF Collected: 03/17/2024 5:43 PM Status: F Source: F [facility] TYPE CODE TESTS RESULT OUT OF [...] 0.0-0.2 10*3/uL Result Comment: PERFORMED BY : [place] [address] PATHOLOGIST URGENT CARE NURSE PRACTITIONER MEERA GRIFFITHS M.D. Performed By: #### CMP, CUBL D, CBC #### [address] COMPREHENSIVE METABOLIC PANEL Collected: 03/17/2024 5 :43 PM Status: F Source: [facility] TYPE CODE TESTS RESULT OUT OF [...] Pharmacy 96.21 Result Comment: PERFORMED BY : [place] [address] PATHOLOGIST URGENT CARE NURSE PRACTITIONER MEERA GRIFFITHS M.D. Performed By: #### TIESHA MATAL D, CBC #### [facility] [address] [place], [place] [address] [facility] BLOOD CULTURE Observed: 03/17/2024 5:43 PM Status: F Source: [facility] NO GROWTH 5 DAYS PERFORMED BY: [place] [address] PATHOLOGIST URGENT CARE NURSE PRACTITIONER MEERA GRIFFITHS M.D. Performed By: #### CMP, CUBL D, CBC #### [facility] [address] [place], [place] [address] [facility] BEDSIDE GLUCOSE LAB Collected: 02/27/2024 4:07 PM Status: COMPLETED Source: [facility] TYPE CODE TESTS RESULT OUT OF RANGE REFERENCE UNITS LAB BEDG([facility]) BEDSIDE GLUCOSE LAB 429 High Alert 65-99 mg/dL BEDSIDE GLUCOSE LAB Collected: 02/27/2024 11:35 AM Status: COMPLETED Source: [facility] TYPE CODE TESTS RESULT OUT OF RANGE REFERENCE UNITS LAB BEDG([facility]) BEDSIDE GLUCOSE LAB 326 High 65-99 mg/dL CBC AND AUTO DIFF Collected: 02/27/2024 5:08 AM Status: COMPLETED Source: [facility] TYPE CODE TESTS RESULT OUT OF [...] X10E9/L Performed By: #### CBCA, CMP , 50997-7 #### [facility] ([id number]) [address] [place] [address], [place] [address] COMPREHENSIVE METABOLIC PANEL Collected: 2023 5:08 AM Status: COMPLETED Source: [facility] TYPE CODE TESTS RESULT OUT OF [...] a race coefficient. Performed By: #### CHRISTINE, [employer] , 70808-6 #### [facility] ([id number]) [address] [place] [address] MAGNESIUM Collected: 02/27/2024 5:08 AM S tatus: COMPLETED Source: [facility] TYPE CODE TESTS RESULT OUT OF RANGE REFERENCE UNITS LAB MG(LOINC) MAGNESIUM 1.8 1.8-2.6 mg/dL Performed By: #### CBCA, CMP , 40168-2 #### [facility] ([id number]) [address] [place] [address] BEDSIDE GLUCOSE LAB Collected: 02/26/2024 9:10 PM Status: COMPLETED Source: [facility] TYPE CODE TESTS RESULT OUT OF RANGE REFERENCE UNITS LAB BEDG(LOINC) BEDSIDE GLUCOSE LAB 343 High 65-99 mg/dL BEDSIDE GLUCOSE LAB Collected: 02/26/2024 3:18 PM Status: COMPLETED Source: [facility] TYPE CODE TESTS RESULT OUT OF RANGE REFERENCE UNITS LAB BEDG(LOINC) BEDSIDE GLUCOSE LAB 339 High 65-99 mg/dL BEDSIDE GLUCOSE LAB Collected: 02/26/2024 12:00 PM Status: COMPLETED Source: [facility] TYPE CODE TESTS RESULT OUT OF RANGE REFERENCE UNITS LAB BEDG(LOINC) BEDSIDE GLUCOSE LAB 275 High 65-99 mg/dL CBC AND AUTO DIFF Collected: 02/26/2024 5:02 AM Status: COMPLETED Source: [facility] TYPE CODE TESTS RESULT OUT OF [...] By: #### CBCA, 191 23-9, CMP #### [facility] ([id number]) [address] [place] [address] COMPREHENSIVE METABOLIC PANEL Collected: 2023 5:02 AM Status: COMPLETED Source: [facility] TYPE CODE TESTS RESULT OUT OF [...] By: #### CBCA, 191 23-9, CMP #### [facility] ([id number]) [address] [place] [address] MAGNESIUM Collected: 02/26/2024 5:02 AM S tatus: COMPLETED Source: [facility] TYPE CODE TESTS RESULT OUT OF RANGE REFERENCE UNITS LAB MG(LOINC) MAGNESIUM 1.9 1.8-2.6 mg/dL Performed By: #### CBCA, 191 23-9, CMP #### [facility] ([id number]) [address] [place] [address], [place] [address] BEDSIDE GLUCOSE LAB Collected: 02/25/2024 9:17 PM Status: COMPLETED Source: [facility] TYPE CODE TESTS RESULT OUT OF RANGE REFERENCE UNITS LAB BEDG(LOINC) BEDSIDE GLUCOSE LAB 405 High Alert 65-99 mg/dL BEDSIDE GLUCOSE LAB Collected: 02/25/2024 4:02 PM Status: COMPLETED Source: [facility] TYPE CODE TESTS RESULT OUT OF RANGE REFERENCE UNITS LAB BEDG(LOINC) BEDSIDE GLUCOSE LAB 407 High Alert 65-99 mg/dL BEDSIDE GLUCOSE LAB Collected: 02/25/2024 11:56 AM Status: COMPLETED Source: [facility] TYPE CODE TESTS RESULT OUT OF RANGE REFERENCE UNITS LAB BEDG(LOINC) BEDSIDE GLUCOSE LAB 322 High 65-99 mg/dL CBC AND AUTO DIFF Collected: 02/25/2024 4:30 AM Status: COMPLETED Source: [facility] TYPE CODE TESTS RESULT OUT OF [...] BASOPHIL 0.0 0.0-0.2 X10E9/L Performed By: #### [id number], CBCA, CMP #### [facility] ([id number]) [address] [place] [address], [place] [address] COMPREHENSIVE METABOLIC PANEL Collected: 2023 4:30 AM Status: COMPLETED Source: [facility] TYPE CODE TESTS RESULT OUT OF [...] use a race coefficient. Performed By: #### [id number], CHRISTINE, CMP #### [facility] ([id number]) [address] [place] [address] [id number] MAGNESIUM Collected: 02/25/2024 4:30 AM S tatus: COMPLETED Source: [facility] TYPE CODE TESTS RESULT OUT OF RANGE REFERENCE UNITS LAB MG(LOINC) MAGNESIUM 1.8 1.8-2.6 mg/dL Performed By: #### 78992-5, CHRISTINE, CMP #### [facility] ([id number]) [address] [place] [address] BEDSIDE GLUCOSE LAB Collected: 02/24/2024 9:28 PM Status: COMPLETED Source: [facility] TYPE CODE TESTS RESULT OUT OF RANGE REFERENCE UNITS LAB BEDG(LOINC) BEDSIDE GLUCOSE LAB 317 High 65-99 mg/dL BEDSIDE GLUCOSE LAB Collected: 02/24/2024 5:05 PM Status: COMPLETED Source: [facility] TYPE CODE TESTS RESULT OUT OF RANGE REFERENCE UNITS LAB BEDG(LOINC) BEDSIDE GLUCOSE LAB 255 High 65-99 mg/dL TISSUE CULTURE Observed: 02/24/2024 3:53 PM Status: COMPLETED Source: [facility] GRAM STAIN 0 to 1 WHITE BLOOD [...] F Performed By: #### 627-0 ### # [facility] ([id number]) [address], [address] [place] [address] BEDSIDE GLUCOSE LAB Collected: 02/24/2024 11:59 AM Status: COMPLETED Source: [facility] TYPE CODE TESTS RESULT OUT OF RANGE REFERENCE UNITS LAB BEDG(LOINC) BEDSIDE GLUCOSE LAB 294 High 65-99 mg/dL BEDSIDE GLUCOSE LAB Collected: 02/24/2024 7:38 AM Status: COMPLETED Source: [facility] TYPE CODE TESTS RESULT OUT OF RANGE REFERENCE UNITS LAB BEDG(LOINC) BEDSIDE GLUCOSE LAB 342 High 65-99 mg/dL COMPREHENSIVE METABOLIC PANEL Collected: 2023 4:31 AM Status: COMPLETED Source: [facility] TYPE CODE TESTS RESULT OUT OF [...] By: #### ADOLFO, 1911 3-, CBCA #### [facility] ([id number]) [address] [place] [address], [place] [address] CBC AND AUTO DIFF Collected: 02/24/2024 4:31 AM Status: COMPLETED Source: [facility] TYPE CODE TESTS RESULT OUT OF [...] By: #### ADOLFO, 1912 3-9, CBCA #### [facility] ([id number]) [address] [place] [address] MAGNESIUM Collected: 02/24/2024 4:31 AM S tatus: COMPLETED Source: [facility] TYPE CODE TESTS RESULT OUT OF RANGE REFERENCE UNITS LAB MG(LOINC) MAGNESIUM 1.9 1.8-2.6 mg/dL Performed By: #### CMP, 1912 3-9, CBCA #### [facility] ([id number]) [address] [place] [address] BEDSIDE GLUCOSE LAB Collected: 02/23/2024 9:03 PM Status: COMPLETED Source: [facility] TYPE CODE TESTS RESULT OUT OF RANGE REFERENCE UNITS LAB BEDG(LOINC) BEDSIDE GLUCOSE LAB 378 High 65-99 mg/dL VANCOMYCIN TROUGH Collected: 02/23/2024 8:39 PM Status: COMPLETED Source: [facility] TYPE CODE TESTS RESULT OUT OF RANGE REFERENCE UNITS LAB VANCTR(LOINC) VANCOMYCIN TROUGH 6.8 5.0-20.0 ug/mL Performed By: #### 4092-3 ## ## [facility] ([id number]) [address] [place] [address] BEDSIDE GLUCOSE LAB Collected: 02/23/2024 4:13 PM Status: COMPLETED Source: [facility] TYPE CODE TESTS RESULT OUT OF RANGE REFERENCE UNITS LAB BEDG(LOINC) BEDSIDE GLUCOSE LAB 436 High Alert 65-99 mg/dL BEDSIDE GLUCOSE LAB Collected: 02/23/2024 11:20 AM Status: COMPLETED Source: [facility] TYPE CODE TESTS RESULT OUT OF RANGE REFERENCE UNITS LAB BEDG(LOINC) BEDSIDE GLUCOSE LAB 346 High 65-99 mg/dL CBC AND AUTO DIFF Collected: 02/23/2024 4:27 AM Status: COMPLETED Source: [facility] TYPE CODE TESTS RESULT OUT OF [...] By: #### CMP, 1912 3-9, CBCA #### [facility] ([id number]) [address] [place] [address], [place] [address] COMPREHENSIVE METABOLIC PANEL Collected: 2023 4:27 AM Status: COMPLETED Source: [facility] TYPE CODE TESTS RESULT OUT OF [...] By: #### ADOLFO, 191 3-9, CBCA #### [facility] ([id number]) [address] [place] [address] MAGNESIUM Collected: 02/23/2024 4:27 AM S tatus: COMPLETED Source: [facility] TYPE CODE TESTS RESULT OUT OF RANGE REFERENCE UNITS LAB MG(INC) MAGNESIUM 2.1 1.8-2.6 mg/dL Performed By: #### ADOLFO, 1911 3-9, CBCA #### [facility] ([id number]) [address] [place] [address] BEDSIDE GLUCOSE LAB Collected: 02/22/2024 10:17 PM Status: COMPLETED Source: [facility] TYPE CODE TESTS RESULT OUT OF RANGE REFERENCE UNITS LAB BEDG(LOINC) BEDSIDE GLUCOSE LAB 416 High Alert 65-99 mg/dL BEDSIDE GLUCOSE LAB Collected: 02/22/2024 3:54 PM Status: COMPLETED Source: [facility] TYPE CODE TESTS RESULT OUT OF RANGE REFERENCE UNITS LAB [facility] BEDSIDE GLUCOSE LAB 423 High Alert 65-99 mg/dL BEDSIDE GLUCOSE LAB Collected: 02/22/2024 12:14 PM Status: COMPLETED Source: [facility] TYPE CODE TESTS RESULT OUT OF RANGE REFERENCE UNITS LAB BEDG(LOINC) BEDSIDE GLUCOSE LAB 280 High 65-99 mg/dL COMPREHENSIVE METABOLIC PANEL Collected: 2023 4:21 AM Status: COMPLETED Source: [facility] TYPE CODE TESTS RESULT OUT OF [...] use a race coefficient. Performed By: #### 62121-7, CBCA, CMP #### [facility] ([id number]) [address] [place] [address], [place] [address] MAGNESIUM Collected: 02/22/2024 4:21 AM S tatus: COMPLETED Source: [facility] TYPE CODE TESTS RESULT OUT OF RANGE REFERENCE UNITS LAB MG(LOINC) MAGNESIUM 2.1 1.8-2.6 mg/dL Performed By: #### 29746-8, CBCA, CMP #### [facility] ([id number]) [address] [place] [address], [place] [address] CBC AND AUTO DIFF Collected: 02/22/2024 4:21 AM Status: COMPLETED Source: [facility] TYPE CODE TESTS RESULT OUT OF [...] BASOPHIL 0.0 0.0-0.2 X10E9/L Performed By: #### 72598-1, CBCA, CMP #### [facility] ([id number]) [address] [place] [address] BEDSIDE GLUCOSE LAB Collected: 02/21/2024 8:44 PM Status: COMPLETED Source: [facility] TYPE CODE TESTS RESULT OUT OF RANGE REFERENCE UNITS LAB BEDG(LOINC) BEDSIDE GLUCOSE LAB 216 High 65-99 mg/dL BEDSIDE GLUCOSE LAB Collected: 02/21/2024 5:12 PM Status: COMPLETED Source: [facility] TYPE CODE TESTS RESULT OUT OF RANGE REFERENCE UNITS LAB BEDG(INC) BEDSIDE GLUCOSE LAB 189 High 65-99 mg/dL THYROID PROFILE Collected: 02/21/2024 2:14 PM Status: COMPLETED Source: [facility] TYPE CODE TESTS RESULT OUT OF RANGE REFERENCE UNITS LAB TSH(INC) TSH 3.61 0.49-4.67 uIU/mL LAB FT4([facility]) FREE T4 1.11 0.61-1.60 ng/dL Performed By: #### THYR #### [facility] ([id number]) [address] [place] [address] BEDSIDE GLUCOSE LAB Collected: 02/21/2024 11:45 AM Status: COMPLETED Source: [facility] TYPE CODE TESTS RESULT OUT OF RANGE REFERENCE UNITS LAB BEDG([facility]) BEDSIDE GLUCOSE LAB 145 High 65-99 mg/dL COMPREHENSIVE METABOLIC PANEL Collected: 2023 4:38 AM Status: COMPLETED Source: [facility] TYPE CODE TESTS RESULT OUT OF [...] RENATA, 227 6-4, 2132-02, HA1C, 2284-01 #### [facility] ([id number]) [address] [place] [address], [place] [address] #### CMP, 95108-8, CBCA #### [facility] ([id number]) [address] [place] [address] MAGNESIUM Collected: 02/21/2024 4:38 AM S tatus: COMPLETED Source: [facility] TYPE CODE TESTS RESULT OUT OF RANGE REFERENCE UNITS LAB MG(LOINC) MAGNESIUM 2.3 1.8-2.6 mg/dL Performed By: #### FEPR, 227 6-4, 2132-02, HA1C, 2284-01 #### [facility] ([id number]) [address] [place] [address], [address] [place] [address] #### CMP, 25322-5, CBCA #### [facility] ([id number]) [address] [place] [address] CBC AND AUTO DIFF Collected: 02/21/2024 4:38 AM Status: COMPLETED Source: [facility] TYPE CODE TESTS RESULT OUT OF [...] FEPR, 227 6-4, 2132-9, HA1C, 2284-8 #### [facility] ([id number]) [address] [place] [address], [address] [place] [address] #### CMP, 86649-4, CBCA #### [facility] ([id number]) [address] [place] [address], [place] [address] HGB A1C (GLYCO-HGB) Collected: 02/21/2024 4:38 AM Status: COMPLETED Source: [facility] TYPE CODE TESTS RESULT OUT OF [...] FEPR, 227 6-4, 2132-02, HA1C, 2284-01 #### [facility] ([id number]) [address] [place] [address], [place] [address] #### CMP, 73993-7, CBCA #### [facility] ([id number]) [address] [place] [address] IRON PROFILE Collected: 4:38 AM Status: COMPLETED Source: [facility] TYPE CODE TESTS RESULT OUT OF RANGE REFERENCE UNITS LAB FE(LOINC) IRON <10 Low 50-170 ug/dL LAB TIBC(LOINC) IRON BINDING 307 250-425 ug/dL LAB SAT(LOINC) IRON SATURATION <3 Low 15-50 % SATURATION Performed By: #### FEPR, 227 6-, 2132-02, HA1C, 2284-01 #### [facility] ([id number]) [address] [place] [address], [address] [address] #### CMP, 01554-4, CBCA #### [facility] ([id number]) [address] [place] [address] FERRITIN Collected: 02/21/2024 4:38 AM S tatus: COMPLETED Source: [facility] TYPE CODE TESTS RESULT OUT OF RANGE REFERENCE UNITS LAB FERR(LOINC) FERRITIN 568 High 11-307 ng/mL Performed By: #### FEPR, 227 6-4, 2132-02, HA1C, 2284-8 #### [facility] ([id number]) [address] [place] [address], [address] [place] [address] #### CMP, 07253-4, CBCA #### [facility] ([id number]) [address] [place] [address] FOLIC ACID Collected: 02/21/2024 4:38 AM S tatus: COMPLETED Source: [facility] TYPE CODE TESTS RESULT OUT OF RANGE REFERENCE UNITS LAB FOLI(LOINC) FOLIC ACID >25.0 >5.8 ng/mL Result Comment: NEW REFERENC E RANGE Performed By: #### FEPR, 227 6-4, 2132-02, HA1C, 2284-01 #### [facility] ([id number]) [address] [place] [address], [address] [place] [address] #### CMP, 08085-4, CBCA #### [facility] ([id number]) [address] [place] [address] VITAMIN B12 Collected: 02/21/2024 4:38 AM S tatus: COMPLETED Source: [facility] TYPE CODE TESTS RESULT OUT OF RANGE REFERENCE UNITS LAB B12(LOINC) VITAMIN B12 312 180-914 pg/mL Performed By: #### FEPR, 227 6-4, 2132-02, HA1C, 2284-01 #### [facility] ([id number]) [address] [place] [address], [facility] [address] [place] [address] #### CMP, 60883-4, CBCA #### [facility] ([id number]) [address] [place] [address] BEDSIDE GLUCOSE LAB Collected: 02/20/2024 9:51 PM Status: COMPLETED Source: [facility] TYPE CODE TESTS RESULT OUT OF RANGE REFERENCE UNITS LAB BEDG(LOINC) BEDSIDE GLUCOSE LAB 116 High 65-99 mg/dL BLOOD CULTURE Observed: 02/20/2024 7:18 PM Status: COMPLETED Source: [facility] CULTURE RESULTS NO GROWTH 5 DAYS BLOOD CULTURE Observed: 02/20/2024 7:10 PM Status: COMPLETED Source: [facility] CULTURE RESULTS NO GROWTH 5 DAYS SUPERFICIAL WOUND CULTURE Observed: 02/01 5:10 PM Status: COMPLETED Source: [facility] SPECIMEN NOTES SPECIMEN 2 GRAM STAIN >25 [...] F Performed By: #### 632-0 ### # [facility] ([id number]) [address] [place] [address], [address] [place] [address] CBC AND AUTO DIFF Collected: 02/20/2024 3:52 PM Status: COMPLETED Source: [facility] TYPE CODE TESTS RESULT OUT OF [...] Performed By: #### 1988-5, C MP, CBCA, 04085-4, 77083-5 #### [facility] ([id number]) [address] [place] [address], [place] [address] COMPREHENSIVE METABOLIC PANEL Collected: 2023 3:52 PM Status: COMPLETED Source: [facility] TYPE CODE TESTS RESULT OUT OF [...] Performed By: #### 1987-, Leo MP, CBCA, 89710-4, 30792-4 #### [facility] ([id number]) [address] [place] [address] C REACTIVE PROTEIN Collected: 02/20/2024 3:52 P M Status: COMPLETED Source: [facility] TYPE CODE TESTS RESULT OUT OF RANGE REFERENCE UNITS LAB CRP(LOINC) C REACTIVE PROTEIN 10.2 High 0.000-0.744 mg/dL Performed By: #### 1987-, Leo MP, CBCA, 86695-8, 25593-1 #### [facility] ([id number]) [address] [place] [address] MAGNESIUM Collected: 02/20/2024 3:52 PM S tatus: COMPLETED Source: [facility] TYPE CODE TESTS RESULT OUT OF RANGE REFERENCE UNITS LAB MG(LOINC) MAGNESIUM 2.3 1.8-2.6 mg/dL Performed By: #### 1987-, Leo MP, CBCA, 74696-8, 30710-7 #### [facility] ([id number]) [address] [place] [address] BRN NATRIURETIC PEP Collected: 02/20/2024 3:52 PM Status: COMPLETED Source: [facility] TYPE CODE TESTS RESULT OUT OF RANGE REFERENCE UNITS LAB BNP(LOINC) BRN NATRIURETIC PEP 41 <100.0 pg/mL Performed By: #### 1987-, C MP, CBCA, 43988-6, 73020-8 #### [facility] ([id number]) [address] [place] [address] LACTATE W/REFLEX Collected: 02/20/2024 3:52 PM Status: COMPLETED Source: [facility] TYPE CODE TESTS RESULT OUT OF RANGE REFERENCE UNITS LAB LACTS(LOINC) LACTATE W/REFLEX 1.2 0.4-2.0 mmol/L Result Comment: Result did not trigger repeat Lactate, re-order if needed. Performed By: #### 42602-9 # ### [facility] ([id number]) [address] [place] [address], [place] [address] SUPERFICIAL WOUND CULTURE Observed: 02/01 3:07 PM Status: COMPLETED Source: [facility] SPECIMEN NOTES SPECIMEN 1 GRAM STAIN 10 to 24 WHITE BLOOD CELLS/LPF 0 to 1 SQUAMOUS EPITHELIAL CELLS/LPF FEW GRAM POSITIVE COCCI RARE GRAM NEGATIVE RODS CULTURE RESULTS MANY MIXED GRAM POSITIVE AND GRAM NEGATIVE ORGANISMS NO STAPHYLOCOCCUS AUREUS ISOLATED NO PSEUDOMONAS AERUGINOSA ISOLATED NO BETA HEMOLYTIC STREPTOCOCCI ISOLATED Performed By: #### 632-0 ### # [facility] ([id number]) [address] [place] [address], [address] [place] [address] SUPERFICIAL WOUND CULTURE Observed: 01/30/2024 2:36 PM Status: COMPLETED Source: [facility] GRAM STAIN 1 to 9 WHITE BLOOD CELLS/LPF 0 SQUAMOUS EPITHELIAL CELLS/LPF MANY GRAM POSITIVE COCCI IN CLUSTERS CULTURE RESULTS RARE LADY PARAPSILOSIS : CLINICAL CORRELATION RECOMMENDED. MAY REPRESENT COMMENSAL ERIC. ALONG WITH MANY NORMAL SKIN ERIC Performed By: #### 632-0 ### # [facility] ([id number]) [address] [place] [address], [address] [place] [address] OFFICE VISIT Observed: 12/18/2023 1:45 PM Status: COMPLETED Source: [facility] [id number] [facility],Authumn D 1970 F Date Provider Department Center 12/18/2023 Leyda-REBECA VALADEZ Family History Problem Relation Age of Onset Angina Mother Heart attack Mother Heart attack Maternal Grandfather Family Status - Relation Status Age at Mother Maternal Grandfather Level of Service:17940 [place] OFFICE/OUTPATIENT ESTABLISHED MOD MDM 30 MIN PROGRESS Observed: 12/18/2023 1:45 PM Status: COMPLETED Source: [facility] Cardiology Clinic Note Chief Complaint: wants to [...] history of Abnormal ECG, Asthma, Diabetes mellitus ([facility]/HCC), and Hyperlipidemia. Surgical History She [...] Dr. Andrew already scheduled 5. Follow-up with [facility] cardiology on an as-needed basis MARY JANE [...] should problems arise Rebeca Valadez MD, MPH, [facility], [facility], [facility] Interventional Cardiology Pager Email: [email or web address] Observed: 11/26/2023 8:30 AM Status: COMPLETED Source: [facility] Rx sent to patient's pharmac y per her request. 36 Observed: 11/24/2023 3:28 PM Status: COMPLETED Source: [facility] Patient called back and said a lady at her pharmacy told her about Nexletol (bempedoic acid). Can I send RX for that? I told her if it was too pricey for her we could then try injections. Please advise. Thanks. 36 Observed: 11/24/2023 3:13 PM Status: COMPLETED Source: [facility] Regarding lab results from : MD Theresa Howell MA Please prescribe Repatha or Praluent - whichever is covered by insurance Thanks LM for patient on her VM asking her to return my call. PROGRESS Observed: 11/03/2023 1:45 PM Status: COMPLETED Source: [facility] Cardiology Clinic Note Chief Complaint: Patient here [...] Dr. Andrew already scheduled 5. Follow-up with [facility] cardiology on an as-needed basis MARY JANE [...] following testing Rebeca Valadez MD, MPH, FACC, [facility], [facility] Interventional Cardiology Pager Email: [email or web address] OFFICE VISIT Observed: 11/03/2023 1:45 PM Status: COMPLETED Source: [facility] [id number] [facility],Authumn D 1970 F Date Provider Department Center 11/03/2023 271-REBECA VALADEZ [facility] Family History Problem Relation Age of Onset Angina Mother Heart attack Mother Heart attack Maternal Grandfather Family Status - Relation Status Age at Mother Maternal Grandfather Level of Service:30008 [place] OFFICE/OUTPATIENT NEW MODERATE MDM 45 MINUTES ALLERGIES DATE TYPE / CODE NAME / CODE REACTION SEVERITY SOURCE 5 DRUG INGREDI/434677444( SNOMED CT) EGG (Inactive) GI intolerance [facility] 5 DRUG INGREDI/950867784( SNOMED CT) SOY Other [facility] 5 DRUG INGREDI/181340021( SNOMED CT) DOXYCYCLINE Rash [facility] 4 DRUG INGREDI~Food~Envir on/869681307(SNOME D CT) SOY [facility] 4 Drug Class~Environ~NON- CBORD/116555498(SN OMED CT) ADHESIVE Rash [facility] 4 DRUG INGREDI/382115173( SNOMED CT) ATORVASTATIN Other [facility] 4 DRUG INGREDI/463994775( SNOMED CT) AZITHROMYCIN Other [facility] 4 DRUG INGREDI/437065192( SNOMED CT) CIPROFLOXACIN Other [facility] 4 DRUG INGREDI/414617788( SNOMED CT) CEPHALEXIN Other [facility] 4 Miscellaneous Allergy/761539862( SNOMED CT) OTHER Other [facility] 4 Drug Class/782570486(SN OMED CT) PENICILLINS Other [facility] 4 DRUG/435581700(SNO MED CT) OXYCODONE-ACETAMINOP HEN Other [facility] 4 DRUG INGREDI/507159938( SNOMED CT) SIMVASTATIN Other [facility] 4 DRUG INGREDI~NON-CBORD/ 371273788(SNOMED CT) AZITHROMYCIN [facility] 3 DRUG INGREDI~NON-CBORD/ 091785409(SNOMED CT) SULFANILAMIDE Anaphylaxis [facility] 3 DRUG INGREDI~NON-CBORD/ 913723683(SNOMED CT) TRIMETHOPRIM Anaphylaxis [facility] 8 DRUG/654903844(SNO MED CT) SULFAMETHOXAZOLE-TRI METHOPRIM Anaphylaxis~Oth er [facility] 8 DRUG INGREDI/193369025( SNOMED CT) MOXIFLOXACIN Hives~[facility] 8 DRUG INGREDI/442913839( SNOMED CT) ASPIRIN Other~Rash Low [facility] 8 DRUG~NON-CBORD/419 738459(SNOMED CT) SULFAMETHOXAZOLE-TRI METHOPRIM Anaphylaxis High [facility] 8 Drug Class~NON-CBORD/41 3357103(SNOMED CT) PENICILLINS Anaphylaxis [facility] 8 DRUG INGREDI~NON-CBORD/ 335228795(SNOMED CT) ASPIRIN Vomiting [facility] 8 DRUG INGREDI~NON-CBORD/ 581546894(SNOMED CT) MOXIFLOXACIN [facility] 8 DRUG INGREDI~NON-CBORD/ 990589367(SNOMED CT) CEFPROZIL [facility] 8 DRUG INGREDI~NON-CBORD/ 085417537(SNOMED CT) CEPHALEXIN [facility] 8 DRUG INGREDI~NON-CBORD/ 849086334(SNOMED CT) CIPROFLOXACIN [facility] 8 DRUG~NON-CBORD/419 064481(SNOMED CT) OXYCODONE-ACETAMINOP HEN [facility]om[facility] 1 DRUG INGREDI/535019430( SNOMED CT) CEFPROZIL Hives~Other [facility] 1 DRUG INGREDI~NON-CBORD/ 314722273(SNOMED CT) SULFAMETHOXAZOLE Anaphylaxis~[facility] High [facility] ENCOUNTERS ADMIT/DISCHARGE ACCOUNT NUMBER ADMITTING ENCOUNTER CLASS LOCATION SOURCE 10/07/2024 [id number] Inpatient Encounter Building:[facility] 10/07/2024 [id number] Inpatient Encounter Building:[facility] 10/07/2024 [id number] Inpatient Encounter Building:JESSA MENDEZ [facility] 10/06/2024/10/12/19 [id number] JOSE LUIS DACOSTA Inpatient Encounter Building:[facility] URoom: 3120Bed: 3120-01 [facility] 09/28/2024/09/29/19 [id number] Ambulatory Building:NOM S SH ENDO [facility] EPIC 08/21/2024/08/22/19 [id number] [facility] 08/12/2024/08/13/19 [id number] Ambulatory Building:NOM S CI POD [facility] EPIC 08/11/2024/08/12/19 [id number] Jorge Early [facility] 08/10/2024/08/11/19 [id number] Ambulatory Building:BSR NEURO [facility] EPIC 07/07/2024 [id number] Ambulatory Building:[facility] 05/03/2024/05/04/20 24 [id number] Troy Moya [facility] 04/08/2024/04/08/20 24 [id number] Ambulatory Building:NOM S CI POD [facility] EPIC 04/05/2024/04/05/20 24 [id number] Mc Roque [facility] 03/17/2024/03/24/20 24 [id number] Audra Wheat Inpatient Encounter [facility] nTRoom: [id number]: 1 [facility] 03/16/2024/03/16/20 24 [id number] Arun Riggins [facility] ng:ER [facility] 03/10/2024/03/10/20 24 [id number] [facility]03[facility]20 24 [id number] Emergency Building:PFM _EDRoom: 6Bed: 06 [facility] 03/03/2024/03/03/20 24 [id number] [facility]02/27/20 24 [id number] [facility] 24 [id number] [facility]02/27/20 24 [id number] GHANSHYAM CUMMINS Inpatient Encounter Building:PFM _ACUTERoom: 205Bed: 01 [facility] 02/20/2024/02/20/20 24 [id number] Ambulatory Building:PF [facility] 02/13/2024/02/13/20 24 [id number] Ambulatory Building:[facility] 02/06/2024/02/06/20 24 [id number] [facility]/30[facility]01/30/20 24 [id number] Ambulatory Building:[facility] _LAB [facility] 01/30/2024/01/30/20 24 [id number] Ambulatory Building:[facility] 01/29/2024/01/29/20 24 [id number] Ambulatory Building:NOM S CI POD [facility] EPIC 01/21/2024/01/21/20 24 [id number] Ambulatory Building:[facility] EPIC 12/18/2023/12/18/19 24 [id number] Ambulatory Building:[facility] 11/13/2023/11/13/19 24 [id number] Ambulatory Building:NOM S CI POD [facility] EPIC 11/10/2023/11/10/19 24 [id number] Ambulatory Building:BSR NEURO [facility] 11/03/2023/11/03/19 24 [id number] Ambulatory Building:[facility] PAYERS ENCOUNTER GUARANTOR PAYER SUBSCRIBER SOURCE 10/07/2024 Primary Insurance:[facility] MEDICARE ADVANTAGEPolicy Number: [id number] Date:2023-06-02 AUTHUMN Danii BUNDSCHUHDOB: [id number] JR BANSAL [address] [place] [address] 10/07/2024 Secondary Insurance:MED[place]ID [place] Number: [id number] Date:2017-06-02 AUTHSUDHEER Foy BUNDSCHDOB: [id number] JR BANSAL [address] [place], [place] [address] [address] 10/07/2024 Primary Insurance:[facility] MEDICARE ADVANTAGEPolicy Number: [id number] Date:2023-06-02 AUTHUMN Danii BUNDSCHDOB: [id number] [address] [address] [facility] 10/07/2024 Secondary Insurance:[place]ID [place] Number: [id number] Date:2017-06-02 AUTHUMN D BUNDSCHUHDOB: [id number] [address] [address] [facility] 10/07/2024 Primary Insurance:[employer] MEDICARE ADVANTAGEPolicy Number: [id number] Date:2023-06-02 AUTHUMN D BUNDSCHUHDOB: [id number] [address] [address] [facility] 10/07/2024 Secondary Insurance:MED[place]ID [place] Number: [id number] Date:2017-06-02 AUTHUMN Danii BUNDSCHUHDOB: [id number] [address] [address] [facility] 10/06/2024 Primary Insurance:[employer]HEM MEDICARE ADVANTAGEPolicy Number: [id number] Date:2023-06-02 AUTHUMN D BUNDSCHUHDOB: [id number] [address] [address] [facility] 10/06/2024 Secondary Insurance:[place]ID [place] Number: [id number] Date:2017-06-02 AUTHUMN Danii BUNDSCHUHDOB: [id number] [address] [address] [facility] 09/28/2024 AUTHUMN D BUNDSCHUHDOB: [address], [place] [address]Ypk: () Primary Insurance:[employer]HEM MEDICARE ADVANTAGEPolicy Number: [id number] Date:2021-06-02 AUTHUMN Danii BUNDSCHUHDOB: [id number] [address] [place] [address] [facility] 09/28/2024 Secondary Insurance:[place] Number: [id number] Date:2017-06-02 AUTHUMN D BUNDSCHUHDOB: [id number] [address] [address] [facility] 08/12/2024 AUTHUMN D BUNDSCHUHDOB: AL[address] [address]Ndz: (HP) Primary Insurance:ANTH MEDICARE ADVANTAGEPolicy Number: [id number] Date:2021-06-02 AUTHUMN D BUNDSCHUHDOB: [id number] [address] [address] [facility] 08/12/2024 Secondary Insurance:[place] Number: [id number] Date:2017-06-02 AUTHUMN D BUNDSCHUHDOB: [id number] [address], [place] [address] [facility] 08/10/2024 AUTHUMN D BUNDSCHUHDOB: [place] [address]Igr: (HP) Primary Insurance:ANTH MEDICARE ADVANTAGEPolicy Number: [id number] Date:2021-06-02 AUTHUMN D BUNDSCHUHDOB: [id number] [address] [address] [facility] 08/10/2024 Secondary Insurance:[place] Number: [id number] Date:2017-06-02 AUTHUMN D BUNDSCHUHDOB: [id number] [address] [address] [facility] 07/07/2024 Primary Insurance:ANTH MEDICARE ADVANTAGEPolicy Number: [id number] Date:2023-06-02 AUTHUMN D BUNDSCHUHDOB: [id number] [address] [address] [facility] 07/07/2024 Secondary Insurance:MED[place]ID [place] Number: [id number] Date:2017-06-02 AUTHUMN D BUNDSCHUHDOB: [id number] [address] [address] [facility] 04/08/2024 AUTHUMN D BUNDSCHUHDOB: [address] [address]Shu: (HP) Primary Insurance:[facility] MEDICARE ADVANTAGEPolicy Number: [id number] Date:2021-06-02 [facility]: [id number] [address] [address] [facility] 04/08/2024 Secondary Insurance:MEDICAID [place]olicy Number: [id number] Date:2017-06-02 [facility] D BUNDSCHDOB: [id number] [address] [address] [facility] 03/10/2024 AUTHUMN D BUNDSCHUHDOB: [address], [place] [address]Hjh: (HP) Primary Insurance:[facility] MEDICARE ADVANTAGEPolicy Number: [id number] Date:2023-06-02 AUTHUMN D BUNDSCHUHDOB: [id number] [address], [place] [address]Bsz: (HP) [facility] 03/10/2024 Secondary Insura nce:[place] MED[place]ID[place] Number: [id number] Date:2017-06-02 AUTHUMN D BUNDSCHUHDOB: [id number] [address], [place] [address]Uxi: (HP) [facility] 03/03/2024 AUTHUMN D BUNDSCHUHDOB: [address], [place] [address]Pir: (HP) Primary Insurance:[facility] MEDICARE ADVANTAGEPolicy Number: [id number] Date:2023-06-02 [facility]: [id number] [address], [place] [address]Vxx: (HP) [facility] 03/03/2024 Secondary Insura nce:[place] MEDICAIDPolicy Number: [id number] Date:2017-06-02 [facility]: [id number] [address] [address]Apa: (HP) [facility] 03/03/2024 [facility] [address], [place] [address]Qbp: (HP) Primary Insurance:[facility] MEDICARE ADVANTAGEPolicy Number: [id number] Date:2023-06-02 [facility] D [facility]: [id number] [address], [place] [address]Kwq: (HP) [facility] 03/03/2024 Secondary Insura nce:[place] MED[place]Policy Number: [id number] Date:2017-06-02 [facility]: [id number] [address], [place] [address]Qem: (HP) [facility] 02/27/2024 [facility]: [facility] [address], [place] [address]Rgd: (HP) Primary Insurance:ANTHEM MEDICARE ADVANTAGEPolicy Number: [id number] Date:2023-06-02 [facility]: [id number] [address], [place] [address]Afx: (HP) [facility] 02/27/2024 [place] Insura nce:[place] MED[place] Number: [id number] Date:2017-06-02 [facility]: [id number] [address], [place] [address]Hpz: (HP) [facility] 02/27/2024 [facility]: [facility] [address], [place] [address]Qix: (HP) Primary Insurance:ANTHEM MEDICARE ADVANTAGEPolicy Number: [id number] Date:2023-06-02 [facility] Danii [facility]: [id number] [address], [place] [address]Arm: (HP) [facility] 02/27/2024 Secondary Insura nce:[place] MEDICAIDPolicy Number: [id number] Date:2017-06-02 [facility] Danii [facility]: [id number] [address], [place] [address]Qkg: (HP) [facility] 02/20/2024 [facility]ii [facility] [address], [place] [address]Ibl: (HP) Primary Insurance:[facility] MEDICARE ADVANTAGEPolicy Number: [id number] Date:2023-06-02 [facility]: [id number] [address], [place] [address]Exo: (HP) [facility] 02/20/2024 [place] Insura nce:[place] MEDICA[place]Policy Number: [id number] Date:2017-06-02 [facility]DOB: [id number] JR [address], [place] [address]Dkm: (HP) [facility] 02/20/2024 [facility] Danii [facility]ENTERDOB: JR [address], [place] [address]Ncm: (HP) Primary Insurance:ANTHEM MEDICARE ADVANTAGEPolicy Number: [id number] Date:2023-06-02 [facility]: [id number] [address], [place] [address]Nko: (HP) [facility] 02/20/2024 [place] Insura nce:[place] Number: [id number] Date:2017-06-02 [facility]DOB: [id number] [address], [place] [address]Jmo: (HP) [facility] 02/13/2024 [facility] Danii [facility]: [address], [place] [address]Xtd: (HP) Primary Insurance:ANTHEM MEDICARE ADVANTAGEPolicy Number: [id number] Date:2023-06-02 [facility] Danii [facility]ENTERDOB: [id number] [address], [place] [address]Edc: (HP) [facility] 02/13/2024 [place] Insura nce:[place] Number: [id number] Date:2017-06-02 [facility] Danii [facility]ENTERDOB: [id number] [address], [place] [address]Jkb: (HP) [facility] 02/06/2024 [facility]: [id number] [address], [place] [address]Vrn: (HP) Primary Insurance:[facility] MEDICARE ADVANTAGEPolicy Number: [id number] Date:2023-06-02 [facility]: [id number] [address], [place] [address]Wnq: (HP) [facility] 02/06/2024 [place] Insura nce:[place] MED[place]Policy Number: [id number] Date:2017-06-02 AUTHUMN D [facility]: [id number] [address], [place] [address]Opa: (HP) [facility] 01/30/2024 AUTHUMN D [facility]: JR [address], [place] [address]Mul: (HP) Primary Insurance:[facility] MEDICARE ADVANTAGEPolicy Number: [id number] Date:2023-06-02 [facility] D BUNDATRIUM HEALTH HARRISBURGUHDOB: [id number] JR [address], [place] [address]Qjn: (HP) [facility] 01/30/2024 [place] Insura nce:[place] MED[place] Number: [id number] Date:2017-06-02 AUTHUMN D BUNDATRIUM HEALTH HARRISBURGUHDOB: [id number] [address], [place] [address]Qiv: (HP) [facility] 01/30/2024 AUTHUMN D BUNDSCHUHDOB: JR [address], [place] [address]Qtq: (HP) Primary Insurance:ANTHEM MEDICARE ADVANTAGEPolicy Number: [id number] Date:2023-06-02 AUTHUMN D BANNERSCHDOB: [id number] [address], [place] [address]Lvo: (HP) [facility] 01/30/2024 Secondary Insura nce:[place] MEDICAIDPolicy Number: [id number] Date:2017-06-02 AUTHUMN D BUNDSCHUHDOB: [id number] [address], [place] [address]Qpb: (HP) [facility] 01/29/2024 AUTHUMN D BUNDSCHUHDOB: [address] [address]Amw: (HP) Primary Insurance:ANTHEM MEDICARE ADVANTAGEPolicy Number: [id number] Date:2021-06-02 AUTHUMN D BUNDSCHUHDOB: [id number] [address] [address] [facility] 01/29/2024 Secondary Insurance:MEDICAID [place] Number: [id number] Date:2017-06-02 AUTHUMN D BUNDSCHUHDOB: [id number] [address] [address] [facility] 01/21/2024 AUTHUMN D BUNDSCHUHDOB: [address] [address]Ior: (HP) Primary Insurance:ANTHEM MEDICARE ADVANTAGEPolicy Number: [id number] Date:2021-06-02 AUTHUMN D BUNDSCHUHDOB: [id number] [address] [address] [facility] 01/21/2024 Secondary Insurance:[place] Number: [id number] Date:2017-06-02 AUTHUMN D BUNDSCHUHDOB: [id number] [address] [address] [facility] 12/18/2023 Primary Insurance:AN[place] MEDICARE ADVANTAGEPolicy Number: [id number] Date:2023-06-02 AUTHUMN D BUNDSCHUHDOB: [id number] [id number] [place] [address] 12/18/2023 Secondary Insurance:MEDICAID [place] Number: [id number] Date:2017-06-02 AUTHUMN D BUNDSCHUHDOB: [id number] [address] 11/13/2023 AUTHUMN D BUNDSCHUHDOB: [address]AP[address] [address]Efv: (HP) Primary Insurance:[place] MEDICARE ADVANTAGEPolicy Number: [id number] Date:2021-06-02 AUTHUMN D BUNDSCHUHDOB: [id number] [address] [address] [facility] 11/13/2023 Secondary Insurance:MED[place] Number: [id number] Date:2017-06-02 AUTHUMN D BUNDSCHUHDOB: [id number] [address] [address] [facility] 11/10/2023 AUTHUMN D BUNDSCHUHDOB: [address] [address]Iuz: (HP) Primary Insurance:[facility] MEDICARE ADVANTAGEPolicy Number: [id number] Date:2021-06-02 AUTHUMN D BUNDSCHUHDOB: [id number] [address] [address] [facility] 11/10/2023 Secondary Insurance:MED[place]ID [place] Number: [id number] Date:2017-06-02 AUTHUMN D BUNDSCHUHDOB: [id number] [address] [address] [facility] 11/03/2023 Primary Insurance:[facility] MEDICARE ADVANTAGEPolicy Number: [id number] Date:2023-06-02 [facility]: [id number] [place] [address] [facility] 11/03/2023 Secondary Insurance:[facility]ID [facility] Number: [id number] Date:2021-12-31 MARY JANE PITTSSCHB: [id number] [place] [address] [facility]
--- OUTSIDE RECORDS SUMMARY | 2024-10-12 10:19 | XMS_ITS ---
Author Organization [facility] [place] Address [address] [place] [address] Care Team Providers Care Maori Liaison Adviser Name Role Phone Ann Rocha Primary Care Provider REASON FOR VISIT Check On Encounters Encounter Location Date Provider Diagnosis [facility] [address] [place] [address] 10/12/2024 Ann Rocha Plan Of Treatment No Information Progress Notes * Amadou SUAREZ DDOB:[birth year] (54 yo F)Acc No.[id number]:10/12/2024 Patient: Carmelita Amadou VEGAS :1970 A ge:54 Y S ex:Female Address:[facility] [address], [place] [address] * true * Date: Generated for Naidai ryan/Faitag/eTransmitting on: 0 10/21/2024 02:22 PM EDT
[2024-10-21] VITALS (19 sets, daily range): BP systolic 135–190; BP diastolic 57–79; PULSE 74–103; TEMP 36.7–36.9; O2SAT 93–99; BMI 48.5; BMI 48.4; BMI 48.6
--- OUTSIDE RECORDS SUMMARY | 2024-10-21 10:00 | XMS_ITS ---
Author Organization [facility] in [place] Address [address] [place] [address] Care Team Providers Care Implementation Engineer Name Role Phone Ann Rocha Primary Care Provider Allergies Allergen (clinical drug ingredient) Drug/Non Drug [...] Pollen Pollen Unknown Allergy Active Substance with 6-biiumtt-3-methylglut aryl-coenzyme A reductase inhibitor mechanism of action (substance) Statins Unknown Drug Allergy Active Substance with sulfonamide structure and antibacterial mechanism of action (substance) Sulfa Antibiotics Unknown Drug Allergy Active doxycycline Doxycycline hives Drug Allergy Act ellis Penicillin anaphylaxis Drug Allergy Acti ve REASON FOR VISIT Presents to office alone for TCM from [place] for pneumonia, Finished ATB. Currently on 2L oxygen Medications Medication SIG (Take, Route, Frequency, Duration) Notes Start Date End Date Status Zinc 50 MG 1 tablet Orally Once a day Active Ventolin HFA 108 (90 Base) MCG/ACT 2 puffs as needed for SOB Inhalation Q4H for 90 days Active Vitamin C Active Triamcinolone Acetonide 0.1 % 1 application Externally Twice a day Active Trulicity 1.5 MG/0.5ML as directed Subcutaneous weekly Active Symbicort 160-4.5 MCG/ACT 2 puffs Inhalation BID for 90 days Rinse after use Active traMADol HCl 50 MG 1 tablet as needed Orally BID prn for 7 days 12/23/2023 Active Repatha SureClick 140 MG/ML 1 injection Subcutaneous every 2 weeks 09/29/2024 Active Spiriva Respimat 1.25 MCG/ACT 2 puffs Inhalation QD for 90 days Active Plavix 75 MG 1 tablet Orally Once a day Active Pantoprazole Sodium 40 MG 1 tablet Orally BID for 90 days Active Nystatin 676784 UNIT/GM 1 application Externally daily Active Ondansetron HCl 4 MG 1 tablet Orally every 8 hours Active Montelukast Sodium 10 MG 1 tablet Orally QD for 30 days Active Pepcid 20 MG 1 tablet Orally Daily Active Metoprolol Tartrate 100 MG 1 tablet with food Orally Twice a day for 90 days Active Lyrica 100 MG 1 capsule Orally Three times a day Active Meclizine HCl 25 MG 1 tablet as needed Orally every 12 hrs for 15 days 07/29/2024 Active Lisinopril 10 MG 1 tablet Orally Once a day Active Levothyroxine Sodium 175 MCG 1 tablet in the morning on an empty stomach Orally Once a day for 90 days Active Iron [...] as directed Subcutaneous Every 2 weeks Active Cinnamon 500 MG 1 capsule Orally BID Active Allopurinol 300 MG 1 tablet Orally Daily for 90 days Active Calcium Active Oxygen - as directed Active Social History Tobacco Use: Social History Observation Description Date Details (start date - stop date) Never Smoker NA - NA Tobacco Control (Standard) Question Answer Notes Tobacco use: Nonsmoker AUDIT-C (Standard) Question Answer Notes Did you have a drink containing alcohol in the p ast year? No Points 0 Interpretation Negative Vital Signs Temperature 98.8 degrees Fahrenheit 10/22/19 25 Blood pressure systolic 150 mm Hg 10/22/19 25 Blood pressure diastolic 60 mm Hg 025 Heart Rate 94 /min 10/21/2024 Height 63 in 10/21/2024 Weight 265.6 lbs 10/21/2024 BMI 47.04 kg/m2 10/21/2024 Oximetry 91 % 10/21/2024 Encounters Encounter Location Date Provider Diagnosis 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 Presents to office alone for TCM from [place] for pneumonia. 2. Finished ATB. Currently on 2L oxygen. 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 * Hospitalization/Major Diagno stic Procedure: p neumonia 10/24. * Family History: F ather: , Dementia, [...] Cigarette use C urrent user N o D rug/Alcohol: A LINDEN-C (Standard) D id you have a drink containing alcohol in the past year? N o P oints 0 I nterpretation N egative * Medications: T aking Allopurinol 300 MG [...] 1 tablet Orally QD , Taking Nystatin 859427 UNIT/GM Cream 1 application Externally daily , Taking Ondansetron HCl 4 MG Tablet 1 tablet Orally every 8 hours , Taking Oxygen - - as directed , Taking Pantoprazole Sodium 40 MG Tablet Delayed Release 1 tablet Orally BID , Taking Pepcid(Famotidine) 20 MG Tablet 1 tablet Orally Daily , Taking Plavix(Clopidogrel Bisulfate) 75 MG Tablet 1 tablet Orally Once a day , Taking Repatha SureClick(Evolocumab) 140 MG/ML Solution Auto-injector 1 injection Subcutaneous every 2 weeks , Taking Spiriva Respimat(Tiotropium Sterling Monohydrate) 1.25 MCG/ACT Aerosol Solution 2 puffs [...] 1 tablet Orally Once a day , Medication List reviewed and reconciled with the patient * Allergies: P enicillin: anaphylaxis - Allergy [...] Doxycycline: hives - Allergy. Objective: * Vitals: W t:265.6lbs, Ht: 63 in, BP:150/60mm Hg, Temp:98.8F, HR:94/min, BMI:47.04Index, Oxygen sat %:91%, Ht-cm: 160.02 cm, Wt-k.48 kg. Assessment: Plan: * Treatment: * Preventive Medicine: Screenings/Counseling: B LA ACTION PLAN Above Normal BMI Follow-up D ietary management education, guidance, and counseling See treatment section of progress note for complete details of management plan. * * Electronic signature of Karie Kaiser NP, CORRECTIONAL CASE MANAGER.MUNICIPAL FIREFIGHTER.[id number] on 10/21/2024 at 02:22 PM EDT Sign off status: Pending Visit Status: A RR (Check-In) * Provider: Margaux Rocha (TTC), MUNICIPAL FIREFIGHTER Date: 10/21/2024 Generated for Mark davis/Otilia/eTransmitting on: 10/21/2024 02:22 PM EDT
--- OUTSIDE RECORDS SUMMARY | 2024-10-21 14:56 | XMS_ITS | Clinical Summary ---
Author Organization [facility] tem Address [id number] [address] [place] [address] Care Team Providers Care Graphics Editor Name Role Phone Ann Rocha TRAWL NET MAKER-BUTADIENE CONVERTER HELPER Primary Care Provider Allergies Active Allergy Reactions Criticality Noted Date Comments Adhesive Rash Low 01/30/2024 Aspirin Vomiting 12/10/2017 Moxifloxacin Hives 12/10/2017 Azithromycin Hives 08/14/2023 Sulfamethoxazole-Trimethoprim Anaphylaxis High 12/10 Cefprozil Hives 12/10/2017 Cephalexin Hives 12/10/2017 Ciprofloxacin Hives 12/10/2017 Penicillins Anaphylaxis High 12/10/2017 Oxycodone-Acetaminophen Vomiting 12/10/2017 Soy 02/21/2024 Sulfamethoxazole Anaphylaxis,Swelling High 1 Sulfanilamide Anaphylaxis High 10/21/2022 Trimethoprim Anaphylaxis High 10/21/2022 Medications SYMBICORT 160-4.5 mcg/actuation inhalerIndication s:bronchospasm prevention with COPD Inhale 2 puffs in the morning and 2 puffs before bedtime. Indications: bronchospasm prevention with COPD. 10/07/19 18 Active cyclobenzaprine (FLEXERIL) 10 mg tablet Take 1 tablet (10 mg total) by mouth nightly. 11/04/19 18 Active fenofibrate (LOFIBRA) 160 mg tablet 10/07/19 18 Active fluticasone (FLONASE) 50 mcg/actuation nasal spray 10/07/19 18 Active furosemide (LASIX) 40 mg tablet Take 1 tablet (40 mg total) by mouth 2 (two) times a day before meals. 10/07/19 18 Active HUMULIN R U-500, CONC, KWIKPEN injection Inject 150 Units of U-500 under the skin in the morning and 150 Units of U-500 at noon and 150 Units of U-500 in the evening and 150 Units of U-500 before bedtime. 150-190 units QID. 10/08/19 18 Active levothyroxine (SYNTHROID, LEVOTHROID) 150 MCG tablet 10/08/19 18 Active metoprolol tartrate (LOPRESSOR) 50 mg tabletIndications :hypertension Take 1.5 tablets (75 mg total) by mouth in the morning and 1.5 tablets (75 mg total) before bedtime. Indications: high blood pressure. 10/07/19 18 Active montelukast (SINGULAIR) 10 mg tablet 11/04/19 18 Active ondansetron ODT (ZOFRAN-ODT) 4 mg disintegrating tablet Dissolve 1 tablet (4 mg total) on tongue every 8 (eight) hours as needed for nausea. 11/26/19 18 Active pantoprazole (PROTONIX) 40 mg EC tabletIndications :gastroesophageal reflux disease Take 1 tablet (40 mg total) by mouth in the morning and 1 tablet (40 mg total) before bedtime. Indications: gastroesophageal reflux disease. 11/04/19 18 Active LYRICA 75 mg capsule Take 1 capsule (75 mg total) by mouth 3 (three) times a day. 11/04/19 18 Active cinnamon bark (CINNAMON) 500 mg capsule Take 4 capsules (2,000 mg total) by mouth in the morning. Active vitamin E, dl,tocopheryl acet, (VITAMIN E, DL, ACETATE,) 400 unit capsule Take 1 capsule (400 Units total) by mouth in the morning. Active ascorbic acid, vitamin C, (ascorbic acid) 250 mg tablet,chewable Chew and swallow. Active multivitamin tablet,chewable Chew 2 capsules and swallow. Active fexofenadine (ORAL) 180 mg tablet Take 1 tablet (180 mg total) by mouth in the morning. Active ferrous sulfate (IRON) 325 (65 FE) mg tablet Take 1 tablet (325 mg total) by mouth daily with breakfast. Active biotin 10,000 mcg capsule Take by mouth. Activ e dintt-dukte-8-dha -epa-lipids 894-49-00-50 mg capsule Take by mouth. Activ e inulin (FIBER GUMMIES) 2 gram tablet,chewable Chew and swallow. Active Lactobacillus acidophilus (ACIDOPHILUS) capsule Take 1 capsule by mouth in the morning and 1 capsule at noon and 1 capsule in the evening. Take with meals. Active vitamin B complex (SUPER B-50 COMPLEX PLUS ORAL) Take by mouth. Activ e tiotropium bromide 1.25 mcg/actuation mist Inhale 2 puffs in the morning. Active albuterol (PROVENTIL HFA;VENTOLIN HFA) 90 mcg/actuation inhaler Inhale 2 puffs every 4 (four) hours as needed for shortness of breath. Active allopurinoL (ZYLOPRIM) 300 mg tablet Take 1 tablet (300 mg total) by mouth in the morning. Active TRULICITY 4.5 mg/0.5 mL pen injector Inject 4.5 mg under the skin once a week. Sundays07/07/19 24 Active acetaminophen-cod eine (TYLENOL #3) 300-30 mg per tablet Take 1 tablet by mouth every 4 (four) hours as needed for pain. 01/12/20 24 Active clopidogreL (PLAVIX) 75 mg tablet Take 1 tablet (75 mg total) by mouth in the morning. Active HYDROcodone-aceta minophen (NORCO) 5-325 mg per tablet Take 1 tablet by mouth every 4 (four) hours as needed for pain. 01/18/20 24 Active lisinopriL (PRINIVIL,ZESTRIL ) 10 mg tablet Take 1 tablet (10 mg total) by mouth in the morning. 11/03/19 24 Active traMADoL (ULTRAM) 50 mg tablet Take 1 tablet (50 mg total) by mouth every 6 (six) hours as needed for pain. 12/23/19 24 Active dupilumab (DUPIXENT PEN) 300 mg/2 mL pen injector SUBQ injection pen Inject 2 mL (300 mg total) under the skin once. One injection subcutaneous every 14 days Active sodium hypochlorite (DAKIN'S SOLUTION) 0.125 % solution external solution Apply 1 Application topically in the morning and 1 Application before bedtime. Apply one application topically in the morning and 1 application at bedtime for wound care. 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 01/30/2024 Obesity, morbid 10/31/2022 Diabetic neuropathy 10/21/2022 Other chronic pain 10/21/2022 Supraventricular tachycardia 10/23/2020 Gastroparesis 02/10/2012 Lobular panniculitis 07/03/2010 Allergic rhinitis due to allergen 06/09/2009 Chronic sinusitis 06/09/2009 Acquired hypothyroidism 08/24/2007 Asthma without status asthmaticus 08/24/2007 Hyperlipidemia 08/24/2007 Type 2 diabetes mellitus without complication Family History Medical History Relation Name Comments Alzheimer's disease Father Arthritis Father Diabetes Father Hypertension Father Arthritis Mother Asthma Mother Hyperlipidemia Mother Hypertension Mother Stroke Mother Relation Name Status Comments Father Mother Alive Social History Tobacco Use Types Packs/Day Years Used Date Smoking Tobacco: Never Smokeless Tobacco: Never Alcohol Use Standard Drinks/Week Comments Not Currently 0 (1 standard drink = 0.6 oz pur e alcohol) [facility] Utilities Answer Date Recorded In the past 12 months has th e electric, gas, oil, or water company threatened to shut off services in your home? No 02/20/2024 PRAPARE - Transportation Answer Date Re corded In the past 12 months, has l ack of transportation kept you from medical appointments or from getting medications? No 02/01 In the past 12 months, has l ack of transportation kept you from meetings, work, or from getting things needed for daily living? No 02/20/2024 Housing Instability Answer Date Recorde d Are you worried or concerned that in the next two months you may not have stable housing that you own, rent or stay in as a part of a household? No 02/20/2024 Childcare Answer Date Recorded Childcare Unknown 11/11/2018 Employment Answer Date Recorded Employment Unknown 11/11/2018 Hunger Screening Answer Date Recorded Within the past 12 months we worried whether our food would run out before we got money to buy more. Never True 03/10/2024 Within the past 12 months th e food we bought just didn't last and we didn't have money to get more. Never True 03/10/2024 Purpose - Life Answer Date Recorded Purpose and direction in life Unknown Comments No Sex and Gender Information Value Date Recorded Sex Assigned at Not on file Legal Sex Female 11:56 AM EDT Gender Identity Not on file Sexual Orientation Not on file Last Filed Vital Signs Vital Sign Reading Time Taken Comments Blood Pressure 169/94 03/10/2024 3:45 PM EDT Pulse 97 03/10/2024 3:45 PM EDT Temperature 36.4 C (97.5 F) 03/10/2024 3:45 PM EDT Respiratory Rate 18 03/10/2024 3:45 PM EDT Oxygen Saturation 100% 03/03/2024 8:30 PM EDT Inhaled Oxygen Concentration - - Weight 126.6 kg (279 lb) 03/03/2024 7:49 PM EDT Height 157.5 cm (5' 2 ) 03/03/2024 7:49 PM EDT Body Mass Index 51.03 03/03/2024 7:49 PM EDT Plan of Treatment Health Maintenance Due Date Last Done Comments Diabetic Ophthalmology Exam 1968 Urine Microalbumin 1968 Depression Screening 1980 Adult BMI Follow Up Plan 1986 Diabetic Foot Exam 1986 DTaP,Tdap and Td Vaccines (1 - Tdap) 1987 Pap Smear 1989 Influenza Vaccine 01/31/2025 Adult BMI Screening 03/03/2025 03/03/2024 Tobacco Screening 03/10/2025 03/10/2024 Zoster (Shingles) Vaccine Completed 03/22/2019, Goals Goal Patient Goal Type Associated Problems Recent Progress Patient-Stated? Author home General Yes Luiza Odom LSW Note: Evaluation of progress towards goal: under assessment Medical Devices Not on file Insurance MEDICAID [place] ANTH MEDICARE Advance Directives * Full Code (Latest Code Status on File) Date Activated Date Inactivated Comments 02/20/2024 6:55 PM 02/27/2024 9:48 PM Care Teams Graphics Editor Relationship Specialty Start Date End Date Ann Rocha, TRAWL NET MAKER-BUTADIENE CONVERTER HELPER [address] [facility] [place] [phone] PCP - General Family Medicine 02/20/24
--- OUTSIDE RECORDS SUMMARY | 2024-10-21 14:56 | XMS_ITS | Clinical Summary ---
Author Organization [facility] Address [address] [place], [place] [address] Care Team Providers Care Cell Room Operator Name Role Phone Paulo MICHEALS MD, Cedric Mae Primary Care Provider [phone] Allergies Active Allergy Reactions Criticality Noted Date Comments Salicylates GI Upset 07/02/2010 avalox [Other] Hives 07/02/2010 Sulfamethoxazole Swelling 07/02/2010 Cefprozil Hives 07/02/2010 Cephalexin Hives 07/02/2010 Ciprofloxacin Hives 07/02/2010 foam tape [Other] Other: See Comments 1 breaks out skin Penicillins Anaphylaxis 07/02/2010 Medications clindamycin 150 mg ORAL capsule take one tablet (150mg) every 6 hours for 10 days 0 1 Active propoxyphene napsylate-acetami nophen (DARVOCET-N 100) 100-650 mg ORAL per tablet as needed per physician order 0 1 Active simvastatin (ZOCOR) 40 mg ORAL tablet Take one(1) tablet daily at bedtime. 0 1 Active fexofenadine (ORAL) 180 mg ORAL tablet Take one(1) tablet daily at bedtime 0 1 Active levothyroxine (SYNTHROID) 125 mcg ORAL tablet Take one(1) tablet daily in the morning 0 1 Active furosemide 20 mg ORAL tablet Take one(1) tablet daily. 0 1 Active diclofenac, EC, 75 mg ORAL EC tablet take 75mg twice daily 0 1 Active metoprolol tartrate (LOPRESSOR) 50 mg ORAL tablet Take one(1) tablet twice daily. 0 1 Active Omeprazole Magnesium 20 mg ORAL tablet take two tablets twice daily 0 1 Active Rosiglitazone-Met formin (AVANDAMET) 4-1,000 mg ORAL per tablet take one tablet twice daily 0 1 Active insulin detemir (LEVEMIR) 100 unit/mL SUBCUTANEOUS injection 70 units at bedtime 12 1 Active albuterol HFA (PROAIR HFA) 90 mcg/Actuation INHALATION inhaler two puffs every 4 to 6 hours as needed 0 1 Active Mometasone-Formot eugene (DULERA) 100-5 mcg/Actuation INHALATION HFAA two puffs twice daily, pt. unsure of dose 0 1 Active fluticasone-salme terol (ADVAIR DISKUS) 100-50 mcg/dose INHALATION DsDv Take one(1) inhalation twice daily; rinse and gargle mouth with water after each use, pt. unsure of dose 0 1 Active nystatin-triamcin olone TOPICAL cream rub on to affected areas after shaving 0 1 Active Active Problems Problem Noted Date Diagnosed Date Lobular panniculitis 07/03/2010 Social History Tobacco Use Types Packs/Day Years Used Date Smoking Tobacco: Never Assessed Comments Unknown Sex and Gender Information Value Date Recorded Sex Assigned at Not on file Legal Sex Female 9:54 AM EST Gender Identity Not on file Sexual Orientation Not on file Plan of Treatment Health Maintenance Due Date Last Done Comments Anxiety Screening 1986 Depression Screening 1986 HIV Screening 1986 Hepatitis C Screening 1986 DTaP,Tdap,Td Vaccine (1 - Tdap) 1987 Hepatitis B Vaccine (1 of 3 - 19+ 3-dose series) 06/11 Cervical Cancer Screening [address] M[address] Colonography 2013 Cologuard (FIT-DNA) 2013 Colonoscopy 2013 Colorectal Cancer Screening 2013 Diabetes Screening 2013 Fecal Occult Blood 2013 Lipid Screening 2013 Sigmoidoscopy 2013 Pneumococcal Vaccine: 50+ (1 of 1 - PCV) 2018 Shingrix Vaccine (1 of 2) 2018 Covid-19 Vaccine ( season) 2024 Influenza Vaccine (Season Ended) 2025 Insurance BLUE CARD PPO OOS Care Teams Cell Room Operator Relationship Specialty Start Date End Date Cedric Bates II, MD PCP - General Internal Medicine 04/20/10
--- OUTSIDE RECORDS SUMMARY | 2024-10-21 14:56 | XMS_ITS | Encounter Summary ---
Author Organization [facility] Address [id number] [address] [place] [address] Care Team Providers Care Unix Developer Name Role Phone Ann Rocha Primary Care Provider Encounter Details Date Type Department Care Team ([facility] st Contact Info) Description 09/04/2023 Orders Only [facility] [address] [place] [address] Transcribe, Orders Support User Social History Tobacco Use Types Packs/Day Years Used Date Smoking Tobacco: Never Smokeless Tobacco: Never Alcohol Use Standard Drinks/Week Comments Not Currently 0 (1 standard drink = 0.6 oz pur e alcohol) Childcare Answer Date Recorded Childcare Unknown 11/11/2018 Employment Answer Date Recorded Employment Unknown 11/11/2018 Hunger Screening Answer Date Recorded Within the past 12 months we worried whether our food would run out before we got money to buy more. Never True 08/14/2023 Within the past 12 months th e food we bought just didn't last and we didn't have money to get more. Never True 08/14/2023 Purpose - Life Answer Date Recorded Purpose and direction in life Unknown Comments Unknown Sex and Gender Information Value Date Recorded Sex Assigned at Not on file Legal Sex Female 11:56 AM EDT Gender Identity Not on file Sexual Orientation Not on file documented as of this encounter Plan of Treatment Not on file documented as of this encounter Visit Diagnoses Not on filedocumented in this encounter Care Teams Unix Developer Relationship Specialty Start Date End Date Ann Rocha APRN-CNP [address] [facility] [place] [address] PCP - General Family Medicine 02/20/24 documented as of this encounter
--- OUTSIDE RECORDS SUMMARY | 2024-10-21 14:56 | XMS_ITS | Encounter Summary ---
Author Organization [facility] Address [address] [place] [address] Care Team Providers Care Manager Investment Banking Name Role Phone Kamran Chatterjee MD Primary Care Provider [phone] Angelia Worley Unavailable Encounter Details Date Type Department Care Team (Late st Contact Info) Description 09/23/2024 Orders Only [facility] [address] [place] [address] Margarito Moon MD [address] [place] [address] Social History Tobacco Use Types Packs/Day Years Used Date Smoking Tobacco: Never Passive Smoke Exposure: Never Smokeless Tobacco: Never Alcohol Use Standard Drinks/Week Comments Never 0 (1 standard drink = 0.6 oz pur e alcohol) Comments Unknown Sex and Gender Information Value Date Recorded Sex Assigned at Not on file Legal Sex Female 6:50 PM EDT Gender Identity Not on file Sexual Orientation Not on file documented as of this encounter Plan of Treatment Upcoming Encounters Date Type Department Care Team (Late st Contact Info) Description 12/28/2024 2:10 PM EDT Office Visit [facility] [address] [place] [address] Margarito Moon MD [address] [place] [address] 01/05/2025 2:20 PM EDT Office Visit [facility] [address] [place] [address] Angelia Worley PA [address] [place] [id number] documented as of this encounter Procedures Procedure Name Priority Date/Time Associated Diagnosis Comments C-PEPTIDE Routine 09/23/2024 8:58 AM EDT documented in this encounter Results * C-peptide (09/23/2024 8:58 AM EDT) Blood Venous blood specimen / Unknown Margarito Moon MD LAB BLOOD ORDERABLES Final Re sult documented in this encounter Visit Diagnoses Not on filedocumented in this encounter Care Teams Manager Investment Banking Relationship Specialty Start Date End Date Kamran Chatterjee MD [address] [facility] [place] [address] PCP - General Family Medicine 10/23/22 Angelia Worley PA [address] [place] [address] Physician Account Management Assistant Neurology 08/10/24 documented as of this encounter
--- OUTSIDE RECORDS SUMMARY | 2024-10-21 14:56 | XMS_ITS | Patient Health Record ---
Author Organization [facility] Address [address] [place] [address] Care Team Providers Care Senior Speech Pathologist Name Role Phone Ann Rocha Primary Care Provider Vladimir Hurt Unavailable [phone] Allergies Allergen (clinical drug ingredient) Drug/Non Drug Allergy documented on EMR Reaction Allergy Type Onset Date Status adhesives (uncoded) Unknown Allergy Active eggs (uncoded) Unknown Allergy Activ e soy (uncoded) Unknown Allergy Active tomatoes (uncoded) Unknown Allergy A ctive cefprozil cefprozil Unknown Drug Allergy Active cephalexin cephalexin Unknown Drug Allergy Activ e ciprofloxacin Cipro Unknown Drug Allergy Act ellis sulfamethoxazole / trimethoprim Bactrim Unknown Drug Allergy Active aspirin aspirin Unknown Drug Allergy Active moxifloxacin Avelox Unknown Drug Allergy Acti ve penicillin G penicillin G sodium Unknown Drug Allergy Active Percocet Unknown Drug Allergy Active Reason For Referral No Information Medications Medication SIG (Take, Route, Frequency, Duration) Notes Start Date End Date Status multivitamin Vitamin B Complex 1 cap(s) orally once a day Active Fiber Tabs 625 mg 2 tab(s) orally 4 ti mes a day Active Calcium 500+D 500 mg-10 mcg 1 tab(s) howard wed 2 times a day Active Vitamin C 500 mg 1 tab(s) chewed once a day Active Lyrica 100 mg 1 cap(s) orally 2 ti mes a day Active Trulicity Pen 4.5 mg/0.5 mL as directed subcutaneously once a week Active HumaLOG Active fluticasone furoate 100 mcg as directed inhaled every 24 hours Active pantoprazole 40 mg 1 tab(s) orally once a day Active Synthroid 175 mcg (0.175 mg) 1 tab(s) orally once a day Active fenofibrate 160 mg 1 tab(s) orally once a day Active Acidophilus - 1 cap(s) orally once a day Active Metoprolol Tartrate 50 mg 1 tab(s) orall y 2 times a day Active Cinnamon 500 mg 2 cap(s) orally 2 ti mes a day Active cyclobenzaprine 10 mg 1 tab(s) orally 3 times a day Active furosemide 40 mg/5 mL 5 mL orally once a day Active allopurinol 300 mg 1 tab(s) orally once a day Active Iron 100 Plus Vitamin B Complex with C, Folic Acid and Iron 1 tab(s) orally once a day Active Symbicort 160 mcg-4.5 mcg/inh 2 puff(s) inhaled 2 times a day Active biotin 29773 mcg 1 cap(s) orally once a day Active Spiriva Respimat 10 ACT 2.5 mcg/inh 2 puff(s) inhaled once a day Active fexofenadine 180 mg 1 tab(s) orally once a day Active Ventolin HFA 90 mcg/inh 2 puff(s) inhale d every 6 hours Active Stool Softener with Laxative 50 mg-8.6 mg 2 tab(s) orally once a day (at bedtime) Active montelukast 10 mg 1 tab(s) orally once a day Active Vitamin D2 50,000 intl units 1 cap(s) orally once a week Active vitamin E 400 intl units 1 cap(s) orally once a day Active Vitamin B6 100 mg 1 tab(s) orally once a day Active Social History Tobacco Use: Social History Observation Description Date Details (start date - stop date) Never Smoker NA - NA Smoking History Question Answer Notes Smoking Status NonSmoker Problems Problem Type SNOMED Code ICD Code Onset Dates Problem Status W/U Status Risk Notes Problem 482247051746175 Primary osteoarthritis of left knee (M17.12) Active confirmed Problem 4795271454 Left knee pain, unspecified chronicity (M25.562) Active confirmed Problem 117076197 Diabetes mellitu s of other type without complication, unspecified whether human resources compensation analyst insulin use (E13.9) Active confirmed Plan Of Treatment Pending Test Test Name Order Date Hgb A1c 08/13/2023 Insurance Providers Payer Name Payer Address Payer Phone Subscriber Number Group Number Insured Name Patient Relationship to Insured Coverage Start Date Coverage End Date Medicare [employer] [address] [place] [address] [id number] MARY JANE CORREA Self - patient is the insured [facility] of Medicaid [address] [place] [address] [id number] MARY JANE CORREA Self - patient is the insured Medical (General) History Medical History History ICD Code Asthma/COPD Yes Respiratory problems: Yes Lung Disease: Yes Cancer Type Yes Anesthetic Reactions Yes Malignant Hyperthermia: No Heart problems: Yes Hypothyroidism Yes Diabetes: Yes GI Problems: Yes High Blood Pressure: Yes Kidney trouble Yes Surgical History Surgery Date(Month/Year) Hysterectomy November/2020 TKR laterality not sepcified Back surgery August/2011 Nasal spur removal August/2011 Appendectomy Right shoulder repair Cholecystectomy Screw removal July/1988 Right knee arthroscopy Tonsilectomy
--- OUTSIDE RECORDS SUMMARY | 2024-10-21 14:56 | XMS_ITS | Encounter Summary ---
Author Organization [facility] Address [address] [place] [address] Care Team Providers Care Camp Head Counselor Name Role Phone Kamran Chatterjee MD Primary Care Provider [phone] Angelia Worley Unavailable Encounter Details Date Type Department Care Team (Late Contact Info) Description 10/21/2024 Telephone [facility] [address] [facility] [address] [place] [address] Benito Real DPM [address] [facility] [address] [place] [address] Social History Tobacco Use Types Packs/Day Years [...] on file documented as of this encounter Miscellaneous Notes * Telephone Encounter - Barrera Cuadra - 10/21/2024 2:22 PM EDT CALLED PT FOR NO SHOW APPT (10/21/24) - LEFT VM TO CALL US BACK. documented in this encounter Plan of Treatment Upcoming Encounters Date Type Department Care Team (Late Contact Info) Description 12/28/2024 2:10 PM EDT Office Visit [facility] [address] [place] [address] Margarito Moon MD [address] [place] [address] 01/05/2025 2:20 PM EDT Office Visit [facility] [address] [place] [address] Angelia Worley PA [address] [place] [address] documented as of this encounter Visit Diagnoses Not on filedocumented in this encounter Care Teams Camp Head Counselor Relationship Specialty Start Date End Date Kamran Chatterjee MD [address] [place] [address] PCP - General Family Medicine 10/23/22 Angelia Worley PA [address] [place] [address] Physician Commercial Glazier Neurology 08/10/24 documented as of this encounter
--- OUTSIDE RECORDS SUMMARY | 2024-10-21 14:56 | XMS_ITS | Encounter Summary ---
Author Organization [facility] Address [address] [place] [address] Care Team Providers Care Speeder Hand Name Role Phone Kamran Chatterjee MD Primary Care Provider [phone] Angelia Worley Unavailable Encounter Details Date Type Department Care Team (Late st Contact Info) Description 09/22/2024 Orders Only [facility] [address] [place] [address] Margarito Moon MD [address] [place] [address] Social History Tobacco Use Types [...] [facility] [address] [place] [address] Margarito Moon MD [address] [place] [address] 01/05/2025 2:20 PM EDT Office Visit [facility] [address] [place] [address] Angelia Worley PA [address] [place] [address] documented as of this encounter Procedures Procedure Name Priority Date/Time Associated Diagnosis Comments MICROALBUMIN / CREATININE URINE RATIO Routine 09/22/2024 2:18 PM EDT LIPID PANEL Routine 09/22/2024 2:18 PM EDT VITAMIN D Routine 09/22/2024 2:14 PM EDT CREATININE Routine 09/22/2024 2:14 PM EDT CBC Routine 09/22/2024 2:14 PM EDT COMPREHENSIVE METABOLIC PANEL Routine 09/22/2024 2:14 PM EDT documented in this encounter Results * Lipid panel (09/22/2024 2:18 PM EDT) Blood Venous blood specimen / Unknown Margarito Moon MD LAB BLOOD ORDERABLES Final Re sult * Microalbumin / creatinine urine ratio (09/22/2024 2:18 PM EDT) Urine Urine specimen obtained by clean catch procedure / Unknown Margarito Moon MD LAB URINE ORDERABLES Final Re sult * Comprehensive metabolic panel (09/22/2024 2:14 PM EDT) Blood Venous blood specimen / Unknown Margarito Moon MD LAB BLOOD ORDERABLES Final Re sult * VITAMIN D (09/22/2024 2:14 PM EDT) Margarito Moon MD LAB BLOOD ORDERABLES Final Re sult * Creatinine (09/22/2024 2:14 PM EDT) Blood Venous blood specimen / Unknown Margarito Moon MD LAB BLOOD ORDERABLES Final Re sult * CBC (09/22/2024 2:14 PM EDT) Blood Venous blood specimen / Unknown Margarito Moon MD LAB BLOOD ORDERABLES Final Re sult documented in this encounter Visit Diagnoses Not on filedocumented in this encounter Care Teams Speeder Hand Relationship Specialty Start Date End Date Kamran Chatterjee MD [address] [facility] [place] [address] PCP - General Family Medicine 10/23/22 Angelia Worley PA [address] [place] [address] Physician Unified Communications Engineer Neurology 08/10/24 documented as of this encounter
--- OUTSIDE RECORDS SUMMARY | 2024-10-21 14:56 | XMS_ITS | Clinical Summary ---
Author Organization [facility] Address [address] [facility] [place] [address] Care Team Providers Care Parachutist/Combatant Diver Qualified Name Role Phone Kamran Chatterjee MD Primary Care Provider [phone] Angelia Wroley Unavailable Allergies Active Allergy Reactions Criticality Noted Date Comments Aspirin Rash Low 10/21/2022 Cefprozil Hives 07/02/2010 Cephalexin Hives 07/02/2010 Cephalosporins Hives 10/21/2022 Ciprofloxacin Other,Hives 07/02/2010 Moxifloxacin Hives,Unknown 10/21/2022 Oxycodone-Acetaminophen Other,GI intolerance Penicillins Unknown,Anaphylaxis High 07/02/2010 Sulfamethoxazole Anaphylaxis,Swelling High 1 Sulfamethoxazole-Trimethoprim Anaphylaxis High 12/10 Sulfanilamide Anaphylaxis High 10/21/2022 Trimethoprim Anaphylaxis High 10/21/2022 Wound Dressing Adhesive Rash Low 10/23/2022 Medications albuterol HFA (Ventolin HFA) 90 mcg/act inhaler Inhale 2 puffs in the morning and 2 puffs in the evening and 2 puffs before bedtime. Active allopurinol (Zyloprim) 300 MG tablet Take 300 mg by mouth 1 (one) time each day at the same time Active ascorbic acid (Vitamin C) 250 MG tablet Take 250 mg by mouth 1 (one) time each day at the same time Active budesonide-formot eugene (Symbicort) 160-4.5 MCG/ACT inhaler Inhale 2 puffs every 12 (twelve) hours Active calcium carbonate (Os-Mauricio) 1250 (500 Ca) MG tablet Take 1,250 mg by mouth every 12 (twelve) hours Active cholecalciferol (Vitamin D-3) 50 MCG (2000 UT) capsule Take 1 capsule by mouth 1 (one) time each day at the same time Active cyclobenzaprine (Flexeril) 10 MG tablet Take 10 mg by mouth 1 (one) time each day at the same time Active fenofibrate (Triglide) 160 MG tablet Take 160 mg by mouth 1 (one) time each day at the same time Active furosemide (Lasix) 40 MG tablet Take 40 mg by mouth Daily Active insulin regular (HumuLIN R U-500 KWIKPEN) 500 UNIT/ML CONCENTRATED injection Inject 500 mL under the skin at bedtime Active levothyroxine (Synthroid, Levoxyl) 175 MCG tablet Take 100 mcg by mouth 1 (one) time each day at the same time Active metoprolol tartrate (Lopressor) 50 MG tablet Take 50 mg by mouth every 12 (twelve) hours Active pantoprazole (ProtoNix) 40 MG EC tablet Take 40 mg by mouth 1 (one) time each day at the same time Active tiotropium (Spiriva Respimat) 1.25 MCG/ACT inhaler Inhale 2 puffs 1 (one) time each day at the same time Active zileuton CR (Zyflo CR) 600 MG 12 hr tablet Take 1,200 mg by mouth every 12 (twelve) hours Active biotin 10 MG capsule Take 10 mg by mouth Daily Active cinnamon 500 MG capsule Take 2,000 mg by mouth in the morning. Active clindamycin (Cleocin) 300 MG capsule Take 300 mg by mouth in the morning and 300 mg in the evening and 300 mg before bedtime. 3 Active Rome DMT 30-30 MG tablet Take 30 mg by mouth Daily 3 Active diclofenac (Voltaren) 75 MG EC tablet Take 75 mg by mouth in the morning and 75 mg before bedtime. 2 Active doxycycline (Monodox) 100 MG capsule Take 100 mg by mouth in the morning and 100 mg before bedtime. 3 Active ferrous sulfate 325 (65 Fe) MG tablet Take 325 mg by mouth in the morning. Take with meals. Active fexofenadine (Chacha) 180 MG tablet Take 180 mg by mouth in the morning. Active indomethacin (Indocin) 50 MG capsule Take 50 mg by mouth in the morning and 50 mg in the evening. Take with meals. 2 Active Inulin 2 g chewable tablet Chew 2 g Acti ve Lactobacillus (Acidophilus) capsule Take 1 capsule by mouth in the morning and 1 capsule at noon and 1 capsule in the evening. Take with meals. Active montelukast (Singulair) 10 MG tablet Take 10 mg by mouth Daily 2 Active traMADol (Ultram) 50 MG tablet Take 50 mg by mouth every 6 (six) hours if needed 3 Active ascorbic acid (Vitamin C) 250 MG chewable tablet Chew 250 mg Daily Active cholecalciferol (Vitamin D-3) 50 MCG (2000 UT) capsule Take 2,000 Units by mouth in the morning. Active furosemide (Lasix) 20 MG tablet Take 20 mg by mouth in the morning and 20 mg before bedtime. 3 Active HumuLIN R 500 UNIT/ML CONCENTRATED injection Inject 500 mL under the skin in the morning. 3 Active lisinopril 10 MG tablet Take by mouth Daily Active clopidogrel (Plavix) 75 MG tablet Take 75 mg by mouth Daily Active pregabalin (Lyrica) 100 MG capsuleIndication s:Lumbar back pain,Lumbar radiculopathy Take 1 capsule (100 mg) by mouth in the morning and 1 capsule (100 mg) in the evening and 1 capsule (100 mg) before bedtime. 270 capsule 4 Active levoFLOXacin (Levaquin) 250 MG tablet Take 250 mg by mouth Daily 3 Active Docusate Sodium (DSS) 250 MG capsule Take 1 capsule by mouth Daily as needed 4 Active Calcium Polycarbophil (fiber) 625 MG tablet Take 2 tablets by mouth every 6 (six) hours Active Dupilumab (Dupixent) 300 MG/2ML solution auto-injector 4 Active Lyrica 100 MG capsuleIndication s:Lumbar back pain,Lumbar radiculopathy Take 1 capsule (100 mg) by mouth in the morning and 1 capsule (100 mg) in the evening and 1 capsule (100 mg) before bedtime. 270 capsule 5 Active insulin regular (HumuLIN R) 500 UNIT/ML CONCENTRATED injectionIndicati ons:Type 2 diabetes mellitus without complication, with long-term current use of insulin Inject 250 Units under the skin Daily 45 mL 1 5 03/27/20 25 Active Dulaglutide 4.5 MG/0.5ML solution auto-injectorIndi cations:Type 2 diabetes mellitus without complication, with long-term current use of insulin Inject 1 Dose under the skin 1 (one) time per week 2 mL 5 5 12/29/19 25 Active Continuous Glucose Sensor (FreeStyle Lisbeth 2 Sensor) miscIndications:T ype 2 diabetes mellitus without complication, with long-term current use of insulin CHANGE EVERY 14 DAYS. 6 each 1 5 Active Insulin Disposable Pump (Omnipod DASH Pods, Gen 4,) miscIndications:T ype 2 diabetes mellitus without complication, with long-term current use of insulin CHANGE POD EVERY 72 HOURS. 10 each 12 5 10/02/19 26 Active Dulaglutide 4.5 MG/0.5ML solution auto-injector Inject 1 Dose under the skin 1 (one) time per week 4 09/29/19 25 Discontinu ed(Reorder ) Continuous Glucose Sensor (FreeStyle Lisbeth 2 Sensor) miscIndications:T ype 2 diabetes mellitus without complication, with long-term current use of insulin CHANGE EVERY 14 DAYS. 6 each 1 5 10/02/19 25 Discontinu ed(Reorder ) Dulaglutide 4.5 MG/0.5ML solution auto-injectorIndi cations:Type 2 diabetes mellitus without complication, with long-term current use of insulin Inject 1 Dose under the skin 1 (one) time per week 6 mL 1 5 09/30/19 25 Discontinu ed(Reorder ) Active Problems Problem Noted Date Diagnosed Date Obesity, morbid 10/31/2022 Diabetic neuropathy 10/21/2022 Other chronic pain 10/21/2022 Disorder of nervous system due to type 2 diabete s mellitus 02/10/2012 Gastroparesis 02/10/2012 Allergic rhinitis due to allergen 06/09/2009 Chronic sinusitis 06/09/2009 Acquired hypothyroidism 08/24/2007 Asthma without status asthmaticus 08/24/2007 Generalized osteoarthritis 08/24/2007 Hyperlipidemia 08/24/2007 Type 2 diabetes mellitus without complication Encounters Date Type Department Care Team Description 10/21/2024 Telephone [facility] [address] [place] [id number] Benito Real DPM 10/01/2024 Refill [facility] [address] [place] [address] Kat Crisostomo LPN Type 2 diabetes mellitus without complication, with long-term current use of insulin 09/29/2024 Refill [facility] [address] [place] [address] Kat Crisostomo LPN Type 2 diabetes mellitus without complication, with long-term current use of insulin 09/28/2024 1:30 PM EDT Office Visit [facility] [address] [place] [address] Margarito Moon MD Type 2 diabetes mellitus without complication, with long-term current use of insulin (Primary Dx); Acquired hypothyroidism (CMS/HCC); Mixed hyperlipidemia (CMS/HCC); Encounter for dietary consultation; Insulin long-term use (CMS/[facility]); Encounter for fitting or adjustment of insulin pump; Insulin pump in place; Class 3 severe obesity due to excess calories with serious comorbidity and body mass index (BMI) of 50.0 to 59.9 in adult 09/28/2024 Bamboo flowsheet [facility] [address] [place] [address] Margarito Moon MD 09/23/2024 Orders Only [facility] [address] [place] [address] Margarito Moon MD 09/22/2024 Orders Only [facility] [address] [place] [address] Margarito Moon MD 08/12/2024 2:10 PM EDT Office Visit [facility] [address] [place] [phone] Benito Real DPM Diabetes mellitus due to underlying condition with diabetic polyneuropathy, with long-term current use of insulin (CMS/[facility]) (Primary Dx); Pain due to onychomycosis of toenails of both feet 08/12/2024 Bamboo flowsheet [facility] [address] [place] [address] Benito Real DPM 08/12/2024 Travel 08/11/2024 Telephone [facility] [address] [facility] [address] [place] [phone] Yael Zamora MA Abdominal wound changes 08/10/2024 11:00 AM EDT Office Visit [facility] [address] [place] [address] Angelia Wroley PA Tremor (Primary Dx); Lumbar back pain; Lumbar radiculopathy; Migraine without aura and without status migrainosus, not intractable (CMS/HCC) 08/10/2024 Bamboo flowsheet [facility] [address] [place] [address] Angelia Worley PA 08/02/2024 Telephone [facility] [address] [place] [address] Margarito Moon MD Med Refill from Last 3 Months Immunizations Immunization Administration Dates Next Due Pneumococcal Conjugate PCV 20 08/22/2022 Zoster, Recombinant 03/22/2019,01/14/2019 Family History Medical History Relation Name Comments Heart disease Brother x 1 COPD Father Diabetes Father Hypertension Father Kidney failure Father Osteoporosis Father Heart disease Maternal Grandfather Heart disease Mother Hypertension Mother Kidney failure Mother No Known Problems Paternal Grandmother Relation Name Status Comments Brother x 1 Alive Father Maternal Grandfather Mother Alive Paternal Grandmother Sister x 2 Alive Social History Tobacco Use Types Packs/Day Years Used Date Smoking Tobacco: Never Passive Smoke Exposure: Never Smokeless Tobacco: Never Tobacco Cessation:Counseling Given: Yes Alcohol Use Standard Drinks/Week Comments Never 0 (1 standard drink = 0.6 oz pur e alcohol) Comments Unknown Sex and Gender Information Value Date Recorded Sex Assigned at Not on file Legal Sex Female 6:50 PM EDT Gender Identity Not on file Sexual Orientation Not on file Last Filed Vital Signs Vital Sign Reading Time Taken Comments Blood Pressure 128/62 09/28/2024 1:59 PM EDT Pulse 99 09/28/2024 1:59 PM EDT Temperature - - Respiratory Rate 18 09/28/2024 1:59 PM EDT Oxygen Saturation 97% 09/28/2024 1:59 PM EDT Inhaled Oxygen Concentration - - Weight 128 kg (283 lb) 09/28/2024 1:59 PM EDT Height 157.5 cm (5' 2 ) 09/28/2024 1:59 PM EDT Body Mass Index 51.76 09/28/2024 1:59 PM EDT Plan of Treatment Upcoming Encounters Date Type Department Care Team (Late st Contact Info) Description 12/28/2024 2:10 PM EDT Office Visit [facility] [address] [place] [address] Margarito Moon MD [address] [place] [address] 01/05/2025 2:20 PM EDT Office Visit [facility] [address] [place] [address] Angelia Worley PA [address] [place] [address] Procedures Procedure Name Priority Date/Time Associated Diagnosis Comments POCT GLUCOSE Routine 09/28/2024 2:05 PM EDT Type 2 diabetes mellitus without complication, with long-term current use of insulin C-PEPTIDE Routine 09/23/2024 8:58 AM EDT LIPID PANEL Routine 09/22/2024 2:18 PM EDT MICROALBUMIN / CREATININE URINE RATIO Routine 09/22/2024 2:18 PM EDT COMPREHENSIVE METABOLIC PANEL Routine 09/22/2024 2:14 PM EDT VITAMIN D Routine 09/22/2024 2:14 PM EDT CREATININE Routine 09/22/2024 2:14 PM EDT CBC Routine 09/22/2024 2:14 PM EDT from Last 3 Months Results * POCT glucose manually resulted (09/28/2024 2:05 PM EDT) Glucose Blood, POC 188 mg/dL Blood Capillary blood specimen / Unknown 09/28/2024 2:05 PM EDT Result [facility] Margarito Moon MD POINT OF CARE TEST ENTER/EDIT ORDERABLES Final Result * C-peptide (09/23/2024 8:58 AM EDT) Blood Venous blood specimen / Unknown Result [facility] Margarito Moon MD LAB BLOOD ORDERABLES Final Re sult * Microalbumin / creatinine urine ratio (09/22/2024 2:18 PM EDT) Urine Urine specimen obtained by clean catch procedure / Unknown Result [facility] Margarito Moon MD LAB URINE ORDERABLES Final Re sult * Lipid panel (09/22/2024 2:18 PM EDT) Blood Venous blood specimen / Unknown Result [facility] Margarito Moon MD LAB BLOOD ORDERABLES Final Re sult * VITAMIN D (09/22/2024 2:14 PM EDT) Result [facility] Margarito Moon MD LAB BLOOD ORDERABLES Final Re sult * Creatinine (09/22/2024 2:14 PM EDT) Blood Venous blood specimen / Unknown Result [facility] Margarito Moon MD LAB BLOOD ORDERABLES Final Re sult * CBC (09/22/2024 2:14 PM EDT) Blood Venous blood specimen / Unknown Margarito Moon MD LAB BLOOD ORDERABLES Final Re sult * Comprehensive metabolic panel (09/22/2024 2:14 PM EDT) Blood Venous blood specimen / Unknown Margarito Moon MD LAB BLOOD ORDERABLES Final Re sult from Last 3 Months Insurance [employer] [place]ICAID [place] Care Teams Parachutist/Combatant Diver Qualified Relationship Specialty Start Date End Date Kamran Chatterjee MD [address] [facility] [place] [address] PCP - General Family Medicine 10/23/22 Angelia Worley PA [address] [facility] [address] [place] [address] Physician Treating Plant Supervisor Neurology 08/10/24
--- OUTSIDE RECORDS SUMMARY | 2024-10-21 14:56 | XMS_ITS | Clinical Summary ---
Author Organization [facility] Address [address] [place] [address] Care Team Providers Care Tipple Engineer Name Role Phone Ann Rocha CNP Primary Care Provider Allergies Active Allergy Reactions Criticality Noted Date Comments Aspirin Other,Rash Low 12/10/2017 Atorvastatin Other 11/03/2023 Myalgias Azithromycin Other 11/03/2023 Cefprozil Hives,Other 07/02/2010 Ciprofloxacin Other 11/03/2023 Doxycycline Rash Low 10/06/2024 Egg GI intolerance 10/07/2024 Cannot tolerate eggs alone or in [facility] when baked into products Cephalexin Other 11/03/2023 Moxifloxacin Hives,Other 12/10/2017 Other Other 11/03/2023 Penicillins Other 11/03/2023 Oxycodone-Acetaminophen Other 11/03/2023 Simvastatin Other 11/03/2023 myalgias Soy Other 10/07/2024 Throat closes Sulfamethoxazole-Trimetho prim Anaphylaxis,Other High 12/10/2017 Medications Medication Sig Dispensed Refills Start Date End Date Status HumuLIN R U-500, Conc, Insulin 500 unit/mL CONCENTRATED injection USE WITH INSULIN PUMP (EXPECT UP TO 200 UNITS TOTAL DAILY Active albuterol 90 mcg/actuation inhaler INHALE 2 PUFFS EVERY 4 HOURS NEEDED FOR SHORTNESS OF BREATH 07/02/2010 Active allopurinol (Zyloprim) 300 mg tablet Take 1 tablet by mouth in the morning. Active budesonide-formoter oL (Symbicort) 160-4.5 mcg/actuation inhaler Inhale 2 puffs twice a day by inhalation route. 10/06/2017 Active Trulicity 4.5 mg/0.5 mL pen injector Inject 4.5 mg under the skin every 7 (seven) days. 07/07/2023 Active Dupixent Pen 300 mg/2 mL pen injector Active fenofibrate (Lofibra) 160 mg tablet Take 1 tablet by mouth at bedtime. 10/06/2017 Active ferrous sulfate 325 (65 Fe) MG tablet Take 325 mg by mouth. Active fexofenadine (Chacha) 180 mg tablet Take 180 mg by mouth in the morning. 07/02/2010 Active furosemide (Lasix) 20 mg tablet Take 20 mg by mouth in the morning and at bedtime. 07/02/2010 Active levothyroxine (Synthroid, Levoxyl) 175 mcg tablet TAKE ONE TABLET BY MOUTH IN THE MORNING DAILY ON AN EMPTY STOMACH, WAIT 30 MIN BEFORE EATING OR DRINKING 10/23/2020 Active montelukast (Singulair) 10 mg tablet Take 10 mg by mouth in the morning. Active pantoprazole (ProtoNix) 40 mg EC tablet Take 1 tablet by mouth in the morning and at bedtime. 11/03/2017 Active Lyrica 100 mg capsule Take 100 mg by mouth three times daily. Active tiotropium (Spiriva Respimat) 1.25 mcg/actuation inhaler INHALE 2 PUFFS DAILY Active lisinopril 10 mg tabletIndications:E ssential hypertension Take 1 tablet (10 mg) by mouth in the morning. 90 tablet 3 11/03/2023 5 Active evolocumab (Repatha SureClick) 140 mg/mL pen injectorIndications :Coronary artery disease involving [place] coronary artery of [place] heart without angina pectoris Inject 140 mg under the skin every 14 (fourteen) days. 6 mL 3 07/07/2024 Active metoprolol tartrate (Lopressor) 100 mg tabletIndications:S VT (supraventricular tachycardia),Benign hypertensive heart disease without congestive heart failure Take 1 tablet (100 mg) by mouth two times daily. 180 tablet 3 07/07/2024 6 Active clopidogrel (Plavix) 75 mg tabletIndications:C oronary artery disease due to lipid rich plaque TAKE 1 TABLET (75 MG) BY MOUTH IN THE MORNING 90 tablet 3 07/28/2024 6 Active Lactobacillus acidophilus 100 mg (1 billion cell) capsule Take 100 mg by mouth in the morning. Active ascorbic acid (Vitamin C) 250 MG chewable tablet Chew 250 mg in the morning. Active biotin 5,000 mcg tablet,disintegrati ng Take 10,000 mcg by mouth in the morning. Active fluticasone (Flonase) 50 mcg/actuation nasal spray Administer 1 spray into each nostril if needed each day for rhinitis. Shake gently. Before first use, prime pump. After use, clean tip and replace cap. Active meclizine (Antivert) 25 mg tablet Take 25 mg by mouth if needed in the morning and at bedtime for dizziness. Active atorvastatin (Lipitor) 80 mg tabletIndications:T ype 2 diabetes mellitus without complication, with long-term current use of insulin ([facility]) Take 1 tablet (80 mg) by mouth at bedtime. 30 tablet 10/10/2024 5 Active diphenhydrAMINE 25 mg capsuleIndications: Pneumonia of right lower lobe due to infectious organism Take 1 capsule (25 mg) by mouth two times daily for 3 days. 6 capsule 10/10/2024 Active metoprolol tartrate (Lopressor) 50 mg tablet Take 1 tablet by mouth in the morning and at bedtime. 5 Discontinue d(Stop Taking at Discharge) bempedoic acid 180 mg tabletIndications:O ther hyperlipidemia Take 180 mg by mouth once daily as directed. 30 tablet 3 11/26/2023 5 Discontinue d(Stop Taking at Discharge) metoprolol tartrate 75 mg tabletIndications:B enign hypertensive heart disease without congestive heart failure Take 1 tablet (75 mg) by mouth in the morning and at bedtime. 180 tablet 3 12/18/2023 5 Discontinue d(Stop Taking at Discharge) rosuvastatin (Crestor) 20 mg tabletIndications:M ixed hyperlipidemia Take 1 tablet (20 mg) by mouth at bedtime. 90 tablet 3 12/18/2023 5 Discontinue d(Stop Taking at Discharge) evolocumab (Repatha SureClick) 140 mg/mL pen injectorIndications :Hyperlipidemia, unspecified hyperlipidemia type Inject 140 mg under the skin every 14 (fourteen) days. 6 mL 3 01/15/2024 5 Discontinue d(Stop Taking at Discharge) famotidine (Pepcid) 20 mg tablet 1 (one) time each day at the same time. 5 Discontinue d(Stop Taking at Discharge) cefpodoxime (Vantin) 200 mg tabletIndications:P neumonia of right lower lobe due to infectious organism Take 1 tablet (200 mg) by mouth two times daily for 3 days. 6 tablet 10/10/2024 doxycycline (Adoxa) 50 mg tabletIndications:P neumonia of right lower lobe due to infectious organism Take 2 tablets (100 mg) by mouth two times daily for 3 days. Take with a full glass of water and do not lie down for at least 30 minutes after. 12 tablet 10/10/2024 5 Active Problems Problem Noted Date Diagnosed Date Insulin dependent type 2 diabetes mellitus 10/07 Assessment & Plan (10/09/2024 10:41 AM EDT): uncontrolled with hyperglycemia due to noncompliance of insulin Normally has an insulin pump but she left at home Insulin drip was discontinued and patient switched to 50 Lantus twice daily will increase the dose today to 60 twice daily. Patient can continue her home insulin pump on discharge A1c 9.0 Assessment & Plan (10/08/2024 2:38 PM EDT): uncontrolled with hyperglycemia due to noncompliance of insulin Normally has an insulin pump but she left at home Will start insulin drip to evaluate insulin requirement and then transition to basal/bolus regimen check hemoglobin A1c Discontinue insulin drip 2 hours after first dose of glargine (Lantus) 50 units BID Assessment & Plan (10/07/2024 12:58 PM EDT): uncontrolled with hyperglycemia due to noncompliance of insulin Normally has an insulin pump but she left at home Will start insulin drip to evaluate insulin requirement and then transition to basal/bolus regimen check hemoglobin A1c Assessment & Plan (10/07/2024 1:25 AM EDT): uncontrolled with hyperglycemia due to noncompliance of insulin Normally has an insulin pump but she left at home Will start insulin drip to evaluate insulin requirement and then transition to basal/bolus regimen check hemoglobin A1c Class 3 obesity 10/07/2024 Assessment & Plan (10/09/2024 10:41 AM EDT): BMI 44.12 --> 48.01 Assessment & Plan (10/08/2024 2:38 PM EDT): BMI 44.12 --> 48.01 Assessment & Plan (10/07/2024 12:58 PM EDT): BMI 44.12 Assessment & Plan (10/07/2024 1:25 AM EDT): BMI 44.12 Essential hypertension 10/07/2024 Assessment & Plan (10/09/2024 10:41 AM EDT): continue oral antihypertensives Assessment & Plan (10/08/2024 2:38 PM EDT): continue oral antihypertensives Assessment & Plan (10/07/2024 12:58 PM EDT): continue oral antihypertensives Assessment & Plan (10/07/2024 1:25 AM EDT): continue oral antihypertensives History of supraventricular tachycardia 10/08/19 Assessment & Plan (10/09/2024 10:41 AM EDT): Continue rate control medications with Lopressor Chronic kidney disease (CKD), stage III (moderat e) 10/07/2024 Assessment & Plan (10/09/2024 10:41 AM EDT): Creatinine seems at baseline Assessment & Plan (10/08/2024 2:38 PM EDT): baseline unclear, monitor renal function, monitor I's and O's Assessment & Plan (10/07/2024 12:58 PM EDT): baseline unclear, monitor renal function, monitor I's and O's Assessment & Plan (10/07/2024 1:25 AM EDT): baseline unclear, monitor renal function, monitor I's and O's GERD (gastroesophageal reflux disease) Assessment & Plan (10/09/2024 10:41 AM EDT): continue PPI Assessment & Plan (10/08/2024 2:38 PM EDT): continue PPI Assessment & Plan (10/07/2024 12:58 PM EDT): continue PPI Assessment & Plan (10/07/2024 1:25 AM EDT): continue PPI NSTEMI (non-ST elevated myocardial infarction) 0 10/06/2024 Assessment & Plan (10/09/2024 10:41 AM EDT): Repeat troponin Discontinue heparin drip Perform stress test in outpatient post recovery from acute illness Assessment & Plan (10/08/2024 2:38 PM EDT): Repeat troponin Discontinue heparin drip Perform stress test in outpatient post recovery from acute illness Assessment & Plan (10/07/2024 12:58 PM EDT): Repeat troponin Continue heparin drip Cardiology consult Assessment & Plan (10/07/2024 1:25 AM EDT): monitor on telemetry, trend cardiac enzymes Continue heparin drip Cardiology consult Pneumonia of right lower lobe due to infectious organism 10/06/2024 Assessment & Plan (10/09/2024 10:41 AM EDT): Continue treatment with ceftriaxone and doxycycline, follow-up culture results Add benadryl to use with doxycycline for allergic reaction Assessment & Plan (10/08/2024 2:38 PM EDT): Continue treatment with ceftriaxone and doxycycline, follow-up culture results Add benadryl to use with doxycycline for allergic reaction Assessment & Plan (10/07/2024 12:58 PM EDT): Continue treatment with ceftriaxone and doxycycline, follow-up culture results Add benadryl to use with doxycycline for allergic reaction Obtain chest X-ray Assessment & Plan (10/07/2024 1:25 AM EDT): Will empirically treat with ceftriaxone and doxycycline, follow-up culture results Acute on chronic anemia 10/06/2024 Assessment & Plan (10/09/2024 10:41 AM EDT): monitor hemoglobin, transfuse for hemoglobin less than 7 Monitor clinically for source of bleeding Assessment & Plan (10/08/2024 2:38 PM EDT): monitor hemoglobin, transfuse for hemoglobin less than 7 Monitor clinically for source of bleeding Assessment & Plan (10/07/2024 12:58 PM EDT): monitor hemoglobin, transfuse for hemoglobin less than 7 Monitor clinically for source of bleeding Assessment & Plan (10/07/2024 1:25 AM EDT): monitor hemoglobin, transfuse for hemoglobin less than 7 Monitor clinically for source of bleeding Stage 2 chronic kidney disease 02/20/2024 Wound infection 02/20/2024 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 01/30/2024 Obesity, morbid 10/31/2022 Diabetic neuropathy 10/21/2022 Other chronic pain 10/21/2022 Supraventricular tachycardia 10/23/2020 Gastroparesis 02/10/2012 Disorder of nervous system due to type 2 diabete s mellitus 02/10/2012 Lobular panniculitis 07/03/2010 Allergic rhinitis due to allergen 06/09/2009 Chronic sinusitis 06/09/2009 Acquired hypothyroidism 08/24/2007 Assessment & Plan (10/09/2024 10:41 AM EDT): continue levothyroxine Assessment & Plan (10/08/2024 2:38 PM EDT): continue levothyroxine Assessment & Plan (10/07/2024 12:58 PM EDT): continue levothyroxine Assessment & Plan (10/07/2024 1:25 AM EDT): continue levothyroxine Asthma without status asthmaticus 08/24/2007 Generalized osteoarthritis 08/24/2007 Hyperlipidemia 08/24/2007 Assessment & Plan (10/09/2024 10:41 AM EDT): reports allergy/intolerance of statins Continue fenofibrate Assessment & Plan (10/08/2024 2:38 PM EDT): reports allergy/intolerance of statins Continue fenofibrate Assessment & Plan (10/07/2024 12:58 PM EDT): reports allergy/intolerance of statins Continue fenofibrate Assessment & Plan (10/07/2024 1:25 AM EDT): reports allergy/intolerance of statins Continue fenofibrate Type 2 diabetes mellitus without complication Encounters Date Type Department Care Team Description 10/06/2024 7:39 PM EDT - 10/11/2024 3:35 PM EDT Hospital Encounter [facility] [address] [place] [address] Zurdo Perera MD Saad, Hani, MD NSTEMI (non-ST elevated myocardial infarction) (CMS/HCC) (Primary Dx); Type 2 diabetes mellitus without complication, unspecified whether snf insulin use (CMS/HCC); Type 2 diabetes mellitus without complication, with long-term current use of insulin (CMS/HCC); Pneumonia of right lower lobe due to infectious organism; PETRA (obstructive sleep apnea) Discharge Disposition: Home-Health Care [facility] (06) 10/06/2024 Travel 07/27/2024 Refill [facility] [address] [place] [address] Rebeca Valadez MD Coronary artery disease due to lipid rich plaque from Last 3 Months Family History Medical History Relation Name Comments Heart attack Maternal Grandfather Angina Mother Heart attack Mother Relation Name Status Comments Maternal Grandfather Mother Social History Tobacco Use Types Packs/Day Years Used Date Smoking Tobacco: Never Smokeless Tobacco: Never Tobacco Cessation:Counseling Given: Not Answered Alcohol Use Standard Drinks/Week Comments Never 0 (1 standard drink = 0.6 oz pur e alcohol) [facility] Utilities Answer Date Recorded In the past 12 months has th e [employer], gas, oil, or water [employer] threatened to shut off services in your [...] any time in the past 12 m [facility], were you homeless or living in a halfway (including now)? Yes 10/06/2024 Hunger Vital Sign [...] Don't know 10/07/2024 10 :13 AM EDT Last Filed Vital Signs Vital Sign Reading [...] Mass Index 46.76 10/06/2024 8:00 PM EDT Plan of Treatment Upcoming Encounters Date Type Department Care Team (Late st Contact Info) Description 11/09/2024 1:45 PM EDT Follow-Up [facility] [address] [place] [id number] Rebeca Valadez MD [address] [facility] [address] [facility] [place] [id number] Health Maintenance Due Date Last Done Comments CT Colonography 1968 Colonoscopy 1968 Colorectal Cancer Screening 1968 FIT-DNA 1968 FIT 1968 FOBT 1968 Medicare Annual Wellness (AWV) 1968 Sigmoidoscopy 1968 Diabetes: Retinopathy Screening 1978 Depression Screening 1980 Hepatitis B Vaccines (1 of 3 - 19+ 3-dose series) 1987 Pap Smear 1989 Adult Tetanus 1990 Cervical Cancer Screening 1998 HPV/Cotest 1998 Mammogram 2008 COVID-19 Vaccine (2023-2 5 season) 2024 Diabetes: Hemoglobin A1C 01/06/2025 10/06/2024 Influenza Vaccine (Season Ended) 2025 Diabetes: Urine Protein Screening 09/22/2025 09/22/2024 Zoster Vaccines Completed 03/22/2019, 01/14/2019 Pneumococcal Vaccine: Pediatrics (0 to 5 Years) and At-Risk Patients (6 to 64 Years) Completed 08/22/2022, 08/22/2022 HIB Vaccines Aged Out No longer eligi ble based on patient's age to complete this topic HPV Vaccines Aged Out No longer eligi ble based on patient's age to complete this topic IPV Vaccines Aged Out No longer eligi ble based on patient's age to complete this topic Meningococcal B Vaccine Aged Out No l onger eligible based on patient's age to complete this topic Meningococcal Vaccine Aged Out No alina hardy eligible based on patient's age to complete this topic Rotavirus Vaccines Aged Out No longer eligible based on patient's age to complete this topic Procedures Procedure Name Priority Date/Time Associated Diagnosis Comments POCT GLUCOSE METER UNSOLICITED RESULTS Routine 10/11/2024 12:03 PM EDT POCT GLUCOSE METER UNSOLICITED RESULTS Routine 10/11/2024 7:32 AM EDT LIGHT GREEN TOP Routine 10/11/2024 3:57 AM EDT EXTRA TUBES Routine 10/11/2024 3:57 AM EDT CBC Pending [...] UNSOLICITED RESULTS Routine 10/09/2024 7:51 AM EDT BASIC METABOLIC PANEL Pending Discharge 10/09/2024 4:09 AM EDT CBC Pending Discharge 10/09/2024 4:09 AM EDT POCT [...] UNSOLICITED RESULTS Routine 10/07/2024 4:40 PM EDT LIGHT GREEN TOP Routine 10/07/2024 4:08 PM EDT EXTRA TUBES Routine 10/07/2024 4:08 PM EDT ANTI-FACTOR XA Timed 10/07/2024 4:08 PM EDT POCT GLUCOSE METER UNSOLICITED RESULTS Routine 10/07/2024 3:38 PM EDT COMPLETE ECHO (TTE) W/ IMAGING AGENT Routine 10/07/2024 3:02 PM EDT POCT GLUCOSE METER UNSOLICITED RESULTS Routine 10/07/2024 2:15 PM EDT POCT GLUCOSE METER UNSOLICITED RESULTS Routine 10/07/2024 1:35 PM EDT POCT GLUCOSE METER UNSOLICITED RESULTS Routine 10/07/2024 12:25 PM EDT LIPID PANEL Routine 10/07/2024 12:04 PM EDT HIGH SENSITIVITY TROPONIN I Routine 10/07/2024 12:04 PM EDT ANTI-FACTOR XA Timed 10/07/2024 12:04 PM EDT POCT GLUCOSE METER [...] UNSOLICITED RESULTS Routine 10/07/2024 6:34 AM EDT CBC Routine 10/07/2024 6:06 AM EDT ANTI-FACTOR XA Timed 10/07/2024 6:06 AM EDT HIGH SENSITIVITY TROPONIN I Add-On 10/07/2024 6:00 AM EDT LIGHT GREEN TOP Routine 10/07/2024 6:00 AM EDT RED TOP Routine 10/07/2024 6:00 AM EDT EXTRA TUBES Routine 10/07/2024 6:00 AM EDT POCT GLUCOSE METER UNSOLICITED RESULTS Routine 10/07/2024 5:34 AM EDT POCT GLUCOSE METER UNSOLICITED RESULTS Routine 10/07/2024 4:36 AM EDT POCT GLUCOSE METER UNSOLICITED RESULTS Routine 10/07/2024 3:34 AM EDT ANTI-FACTOR XA Routine 10/07/2024 1:01 AM EDT APTT Routine 10/07/2024 1:01 AM EDT BASIC METABOLIC PANEL Routine 10/07/2024 1:01 AM EDT LACTIC ACID WITH 4 HOUR REFLEX Routine 10/07/2024 12:54 AM EDT BLOOD CULTURE STAT 10/07/2024 12:54 AM EDT BLOOD CULTURE STAT 10/07/2024 12:54 AM EDT POCT GLUCOSE METER UNSOLICITED RESULTS Routine 10/07/2024 12:11 AM EDT LACTIC ACID WITH 4 HOUR REFLEX Routine 10/06/2024 11:29 PM EDT HEMOGLOBIN A1C Add-On 10/06/2024 10:35 PM EDT CBC WITH AUTO DIFFERENTIAL STAT 10/06/2024 10:35 PM EDT CBC AND DIFFERENTIAL STAT 10/06/2024 10:35 PM EDT from Last 3 Months Results * (ABNORMAL) POCT glucose meter (10/11/2024 12:03 PM EDT) Only the most recent of47 resultswithin the time period is included. Glucose POC 318(H) 70 - 105 mg/dL 10/11/2024 12:20 PM EDT [facility]) Comment:[email or web address] Blood Capillary blood specimen / Unknown 10/11/2024 12:03 PM EDT 10/11/2024 12:20 PM EDT Narrative [facility]) - 10/11/2024 12:20 PM EDT Waived Testing in the ED is performed under the ED CLIA certificate #[id number]. Ravinder Chapman MD LAB BLOOD ORDERABLES [facility]) [address] [place] [address] * Light Green Top (10/11/2024 3:57 AM EDT) Only the most recent of3 resultswithin the time period is included. Extra Tube Hold for add-ons. 10/11/2024 7:01 AM EDT [facility] ([facility]) Comment:Auto resulted. Blood Venous blood specimen / Unknown 10/11/2024 3:57 AM EDT 10/11/2024 5:12 AM EDT Ravinder Chapman MD LAB BLOOD ORDERABLES [facility] ([facility]) [address] [place] [address] * (ABNORMAL) CBC (10/11/2024 3:57 AM EDT) Only the most recent of3 resultswithin the time period is included. Auto WBC 5.66 4.00 - 10.60 10*3/uL 10/11/2024 5:44 AM EDT [facility] ([facility]) RBC 2.82(L) 3.80 - 5.00 10*6/uL 10/11/2024 5:44 AM EDT [facility] ([facility]) Hemoglobin 8.6(L) 12.0 - 15.0 g/dL 10/11/2024 5:44 AM EDT [facility] ([facility]) Hematocrit 26.9(L) 36.0 - 45.0 % 10/11/2024 5:44 AM EDT [facility] ([facility]) MCV 95.4 82.0 - 98.0 fL 10/11/2024 5:44 AM EDT [facility] ([facility]) MCH 30.5 27.0 - 33.0 pg 10/11/2024 5:44 AM EDT [facility] ([facility]) MCHC 32.0 32.0 - 35.0 g/dL 10/11/2024 5:44 AM EDT [facility] ([facility]) RDW 14.8 11.5 - 15.0 % 10/11/2024 5:44 AM EDT [facility] ([facility]) Platelets 171 150 - 400 10*3/uL 10/11/2024 5:44 AM EDT [facility] ([facility]) Blood Venous blood specimen / Unknown Arterial Line / Unknown 10/11/2024 3:57 AM EDT 10/11/2024 5:12 AM EDT Silver Cain MD LAB BLOOD ORDERABLES Performing Organization Address [facility]/ZIP Co de Phone Number [facility] ([facility]) [address] [place] [address] * (ABNORMAL) Hemoglobin and hematocrit, blood (10/10/2024 3:22 AM EDT) Only the most recent of2 resultswithin the time period is included. Hemoglobin 8.5(L) 12.0 - 15.0 g/dL 10/10/2024 4:19 AM EDT [facility] ([facility]) Hematocrit 26.2(L) 36.0 - 45.0 % 10/10/2024 4:19 AM EDT [facility] ([facility]) Blood Venous blood specimen / Unknown Arterial Line / Unknown 10/10/2024 3:22 AM EDT 10/10/2024 4:07 AM EDT Ravinder Chapman MD LAB BLOOD ORDERABLES Performing Organization Address City/[facility]/ZIP Co de Phone Number [facility] ([facility]) [address] [place] [address] * (ABNORMAL) Basic metabolic panel (10/10/2024 3:22 AM EDT) Only the most recent of4 resultswithin the time period is included. Sodium 141 136 - 145 mmol/L 10/10/2024 5:01 AM EDT [facility] ([facility]) Potassium 3.5 3.5 - 5.1 mmol/L 10/10/2024 5:01 AM EDT [facility] ([facility]) Chloride 109(H) 98 - 107 mmol/L 10/10/2024 5:01 AM EDT [facility] ([facility]) CO2 24 21 - 31 mmol/L 10/10/2024 5:01 AM EDT [facility] ([facility]) BUN 55(H) 7 - 25 mg/dL 10/10/2024 5:01 AM EDT [facility] ([facility]) Creatinine 1.46(H) 0.60 - 1.20 mg/dL 10/10/2024 5:01 AM EDT [facility] ([facility]) Glucose 119(H) 70 - 100 mg/dL 10/10/2024 5:01 AM EDT [facility] ([facility]) Calcium 8.1(L) 8.6 - 10.3 mg/dL 10/10/2024 5:01 AM EDT [facility] ([facility]) Anion Gap 12 7 - 20 mmol/L 10/10/2024 5:01 AM EDT [facility] ([facility]) eGFR 42.0(L) >60.0 mL/min/1. 73m*2 10/10/2024 5:01 AM EDT [facility] ([facility]) Comment:[facility] s estimated glomerular filtration rate (eGFR) will [...] BUN/Creatinine Ratio 37.7 09/30 5:01 AM EDT [facility] ([facility]) Blood Venous blood specimen / Unknown Arterial Line / Unknown 10/10/2024 3:22 AM EDT 10/10/2024 4:08 AM EDT Ravinder Chapman MD LAB BLOOD ORDERABLES [facility] ([facility]) [address] [place] [address] * Anti-Xa (Heparin Level) (10/07/2024 4:08 PM EDT) Only the most recent of4 resultswithin the time period is included. Anti-Xa (Heparin) 0.65 0.3 - 0.7 IU/mL 10/07/2024 4:47 PM EDT [facility] ([facility]) Comment:Rivaroxaban and Apix aban will interfere with the anti Xa assay used to monitor UFH and LMWH. Blood Venous blood specimen / Unknown Arterial Line / Unknown 10/07/2024 4:08 PM EDT 10/07/2024 4:22 PM EDT Silver Ant WALKER LAB BLOOD ORDERABLES [facility] ([facility]) [address] [place] [address] * COMPLETE ECHO (TTE) W/ IMAGING AGENT (10/07/2024 3:02 PM EDT) Anatomical Region Laterality Modality Other 10/07/2024 2:33 PM EDT Narrative 10/07/2024 4:13 PM EDT [address] [facility] Heart Station [address] [place], [place] [id number] [phone] (fax) Echocardiogram-[facility] Name: MARY JANE SCHAEFFER Study Date: 10/07/2024 02:33 PM B/P: 137 mmHg/53 mmHg HR: 77 bpm Date of : 1970 Location: [facility] Height: 63 in. Age: 54 [...] small pericardial effusion. Procedure Staff Reading Group: [facility] Referring Physician: RAVINDER CHAPMAN Software Architect: ERMIAS Mckee Ordering Physician: JAKE DAMIAN Procedure Note Rebeca Valadez MD - 10/07/2024 1 1 [facility] Heart Station [address] [id number] [phone] (fax) Echocardiogram-[facility] Name: MARY JANE SCHAEFFER Study Date: 10/07/2024 02:33 PM B/P: 137 mmHg/53 mmHg HR: 77 bpm Date of : 1970 Location: [facility] Height: 63 in. Age: 54 [...] small pericardial effusion. Procedure Staff Reading Group: [facility] Referring Physician: RAVINDER CHAPMAN Software Architect: Hoa Ornelas [facility] Ordering Physician: JAKE DAMIAN Jake Damian MD CV ECHO PROCEDURES * (ABNORMAL) High Sensitivity Troponin I (10/07/2024 12:04 PM EDT) Only the most recent of2 resultswithin the time period is included. [facility] High Sensitivity Troponin I 53(HH) <15 ng/L 10/07/2024 1:23 PM EDT [facility] ([place]) Blood Venous blood specimen / Unknown Arterial Line / Unknown 10/07/2024 12:04 PM EDT 10/07/2024 12:37 PM EDT Jake Damian MD LAB BLOOD ORDERABLES [facility] ([place]) [address] [place] [address] * (ABNORMAL) Lipid panel (10/07/2024 12:04 PM EDT) [facility] Triglycerides 221(H) <150 mg/dL 10/07/2024 1:20 PM EDT [facility] ([facility]) Comment: TRIGLYCERIDE REFERENCE RANGE: 20 YEARS AND OLDER CARDIOVASCULAR RISK LESS THAN 150 mg/dL LOW RISK 150 TO 199 mg/dL BORDERLINE RISK 200 mg/dL AND GREATER HIGH RISK Cholesterol 147 120 - 200 mg/dL 10/07/2024 1:20 PM EDT [facility] ([facility]) LDL Calculated 77 0 - 160 mg/dL 10/07/2024 1:20 PM EDT [facility] ([facility]) HDL 26 23 - 92 mg/dL 10/07/2024 1:20 PM EDT [facility] ([facility]) Non HDL Cholesterol 121 10/07/2024 1:20 PM EDT [facility] ([facility]) Total VLDL-C 44(H) 0 - 40 mg/dL 10/07/2024 1:20 PM EDT [facility] ([facility]) Cholesterol/HDL Ratio 5.7 mg/dL 10/07/2024 1:20 PM EDT [facility] ([facility]) Blood Venous blood specimen / Unknown Arterial Line / Unknown 10/07/2024 12:04 PM EDT 10/07/2024 12:37 PM EDT Jake Damian MD LAB BLOOD ORDERABLES [facility] ([place]) [address] [place] [address] * XR chest 1 view (10/07/2024 10:27 [...] multifocal pneumonia. Electronically signed: Arthur Chu Ravinder Chapman MD IMG XR PROCEDURES * ECG 12 lead (10/07/2024 10:26 AM EDT) Ventricular Rate 78 BPM GE MUSE Atrial Rate 78 BPM GE MUSE SC Interval 138 ms GE MUSE QRS DURATION 88 ms GE MUSE QT Interval 398 ms GE MUSE QTC CALCULATION(BAZE TT) 453 ms GE MUSE P Barling 62 degrees GE MUSE R-Barling 83 degrees GE MUSE T Wave Barling 42 degrees GE MUSE 10/07/2024 10:0 5 AM EDT 10/07/2024 12:01 PM EDT Impressions GE MUSE - 10/07/2024 12:01 PM EDT Normal sinus rhythm Nonspecific T wave abnormality Abnormal ECG When compared with ECG of 09-NOV-2020 07:35, Nonspecific T wave abnormality now evident in Anterior leads Confirmed by Gino ZAPATA., L.S. (2) on 10/07/2024 12:01:23 PM Narrative Procedure Note Michelle Zapata MD - 10/07/2024 IMPRESSION: Normal sinus rhythm Nonspecific T wave abnormality Abnormal ECG When compared with ECG of 09-NOV-2020 07:35, Nonspecific T wave abnormality now evident in Anterior leads Confirmed by Steve ZAPATA, L.S. (2) on 10/07/2024 12:01:23 PM Jake Damian MD ECG ORDERABLES GE MUSE * Red Top (10/07/2024 6:00 AM EDT) Extra Tube Hold for add-ons. 10/07/2024 8:[address] [facility]) Comment:Auto resulted. Blood Venous blood specimen / Unknown 10/07/2024 6:00 AM EDT 10/07/2024 6:10 AM EDT Zurdo Perera MD LAB BLOOD ORDERABLES Performing Organization Address City/[facility] Co de Phone Number [facility]) [address] [place] [address] * (ABNORMAL) APTT (10/07/2024 1:01 AM EDT) aPTT 46.7(H) 25.0 - 35.0 Seconds 10/07/2024 1:47 AM EDT [facility] ([facility]) Comment:Clinical significanc e of the APTT is questionable in the presence of heparin. Blood Venous blood specimen / Unknown Arterial Line / Unknown 10/07/2024 1:01 AM EDT 10/07/2024 1:20 AM EDT Zurdo Perera MD LAB BLOOD ORDERABLES Performing Organization Address [facility] Co de Phone Number [facility] ([facility]) [address] [place] [address] * Lactic Acid with 4 hour reflex (10/07/2024 12:54 AM EDT) Only the most recent of2 resultswithin the time period is included. Lactate 1.1 0.5 - 2.2 mmol/L 10/07/2024 1:50 AM EDT [facility] ([facility]) Blood Venous blood specimen / Unknown Arterial Line / Unknown 10/07/2024 12:54 AM EDT 10/07/2024 1:19 AM EDT Silver Cain MD LAB BLOOD ORDERABLES Performing Organization Address City/[facility] Co de Phone Number [facility]) [address] [place] [address] * Blood culture, peripheral #2 (10/07/2024 12:54 AM EDT) Only the most recent of2 resultswithin the time period is included. [facility] Blood Culture No growth at 5 days POONAM 10/12/2024 2:01 AM EDT [facility] ([facility]) Blood Venous blood specimen / Unknown Venipuncture / Unknown 10/07/2024 12:54 AM EDT 10/07/2024 1:20 AM EDT Silver Ant [facility] MICROBIOLOGY - G ENERAL ORDERABLES [facility] ([facility]) [address] [place] [address] * (ABNORMAL) CBC auto differential (10/06/2024 10:35 PM EDT) [facility] Auto WBC 5.88 4.00 - 10.60 10*3/uL 10/06/2024 10:59 PM EDT [facility] ([facility]) RBC 2.74(L) 3.80 - 5.00 10*6/uL 10/06/2024 10:59 PM EDT [facility] ([facility]) Hemoglobin 8.5(L) 12.0 - 15.0 g/dL 10/06/2024 10:59 PM EDT [facility] ([facility]) Hematocrit 29.0(L) 36.0 - 45.0 % 10/06/2024 10:59 PM EDT [facility] ([facility]) MCV 105.8(H) 82.0 - 98.0 fL 10/06/2024 10:59 PM EDT [facility] ([facility]) MCH 31.0 27.0 - 33.0 pg 10/06/2024 10:59 PM EDT [facility] ([facility]) MCHC 29.3(L) 32.0 - 35.0 g/dL 10/06/2024 10:59 PM EDT [facility] ([facility]) RDW 15.0 11.5 - 15.0 % 10/06/2024 10:59 PM EDT [facility] ([facility]) Neutrophils % 86.9(H) 40.0 - 72.0 % 10/06/2024 10:59 PM EDT [facility] ([facility]) Lymphocytes % 10.5(L) 20.0 - 45.0 % 10/06/2024 10:59 PM EDT [facility] ([facility]) Monocytes % 1.4(L) 5.0 - 12.0 % 10/06/2024 10:59 PM EDT [facility] ([facility]) Eosinophils % 0.0 0.0 - 6.0 % 10/06/2024 10:59 PM EDT [facility] ([facility]) Basophils % 0.2 0.0 - 1.0 % 10/06/2024 10:59 PM T [facility] ([facility]) Neutrophils Absolute 5.11 1.60 - 7.60 10*3/uL 10/06/2024 10:59 PM EDT [facility] ([facility]) Lymphocytes Absolute 0.62(L) 1.20 - 4.00 10*3/uL 10/06/2024 10:59 PM T [facility] ([facility]) Monocytes Absolute 0.08(L) 0.10 - 1.00 10*3/uL 10/06/2024 10:59 PM T [facility] ([facility]) Eosinophils Absolute 0.00 0.00 - 0.50 10*3/uL 10/06/2024 10:59 PM EDT [facility] ([facility]) Basophils Absolute 0.01 0.00 - 0.20 10*3/uL 10/06/2024 10:59 PM T [facility] ([facility]) Platelets 126(L) 150 - 400 10*3/uL 10/06/2024 10:59 PM EDT [facility] ([facility]) nRBC % 0.0 0 % 10/06/2024 10:59 PM T [facility] ([facility]) Immature Granulocytes % 1.0 0.0 - 1.0 % 10/06/2024 10:59 PM T [facility] ([facility]) Immature Granulocytes Absolute 0.06 0.00 - 0.20 10*3/uL 10/06/2024 10:59 PM T [facility] ([facility]) Blood Venous blood specimen / Unknown Arterial Line / Unknown 10/06/2024 10:35 PM EDT 10/06/2024 10:53 PM EDT Silver Ant [facility] LAB BLOOD ORDERABLES [facility] ([facility]) [address], [place] [id number] * (ABNORMAL) Hemoglobin A1c (10/06/2024 10:35 PM EDT) Hemoglobin A1C 9.0(H) 4.0 - 6.0 % 10/08/2024 12:31 PM EDT [facility] ([facility]) Estimated Average Glucose 212 mg/dL 10/08/2024 12:31 PM EDT [facility] ([facility]) Blood Venous blood specimen / Unknown Arterial Line / Unknown 10/06/2024 10:35 PM EDT 10/06/2024 10:53 PM EDT Silver Ant W[facility] LAB BLOOD ORDERABLES [facility] ([place]) [address] [place] [address] from Last 3 Months Advance Directives * Full Code (Latest Code Status on File) Date Activated Date Inactivated Comments 10/06/2024 9:44 PM 10/11/2024 5:35 PM Care Teams Tipple Engineer Relationship Specialty Start Date End Date Ann Rocha CNP [facility] [place] [address] PCP - General Family Medicine 11/03/23
--- OUTSIDE RECORDS SUMMARY | 2024-10-21 14:57 | XMS_ITS | Patient Health Record ---
Author Organization The [facility] in [place] Address [address] [place] [address] Care Team Providers Care Video Production Engineer Name Role Phone Ann Fournier Primary Care Provider SEA CHATTERJEE Unavailable [phone] ANN FOURNIER Unavailable [phone] Cayden Viveros Unavailable [phone] Levy Chatterjee Unavailable [phone] Allergies Allergen (clinical drug ingredient) Drug/Non Drug [...] Pollen Pollen Unknown Allergy Active Substance with 8-botlfpd-5-methylglut aryl-coenzyme A reductase inhibitor mechanism of action (substance) Statins Unknown Drug Allergy Active Substance with sulfonamide structure and antibacterial mechanism of action (substance) Sulfa Antibiotics Unknown Drug Allergy Active doxycycline Doxycycline hives Drug Allergy Act ellis Penicillin anaphylaxis Drug Allergy Acti ve Results Component Value Reference Range Notes XR ribs RT 2V Reviewed date:07/29/2024 03:46:43 PM Interpretation: Performing Lab: Notes/Report: Source Facility: [address] [address] XRay Report Signed Patient: MARY JANE SCHAEFFER MR#: [id number] : 1970 Acct:[id number] Age/Sex: 54 / F ADM Date: 07/29/24 Loc: RAD Attending Dr: ANN FOURNIER Ordering Physician: ANN FOURNIER Date of Service: 07/29/24 Procedure(s): XR ribs RT 2V Accession Number(s): [id number] cc: ANN FOURNIER [place] [address] Patient Name: MARY JANE SCHAEFFER MRN: [id number] date: 1970 Sex: F Assigned Patient Location: [facility] Current Patient Location: [facility] Accession/Order Number: [id number] Exam Date: 07/29/2024 15:30 Report Date: 07/29/2024 15:32 At the request of: ANN FOURNIER Procedure: XR ribs RT 2V XR ribs RT 2V 07/29/2024 3:01 PM SIGNS AND SYMPTOMS: Fall , right rib pain PROTOCOL: Frontal radiograph of the chest with oblique radiographs of the right ribs COMPARISON: 09/17/2017 FINDINGS: The trachea is midline. The heart and mediastinal structures are within normal limits. Pleural parenchymal opacities noted at the left lung base which is of uncertain etiology. There is no evidence of acute displaced rib fracture. The bony thorax is intact. Degenerative changes are present in the thoracic spine. XR/XR ribs RT 2V IMPRESSION: Pleural parenchymal opacities noted at the left lung base which is of uncertain etiology. No acute displaced rib fracture. Impression dictated by: Donald De Souza M.D.07/29/2024 3:32 PM Dictation Location: [place] [address] Electronically authenticated by: [id number] Y Date: 07/29/2024 15:32 Dictated By: Donald De Souza M.D. Signed By: 07/29/24 1535 DD/ 31 TD/TT: Vacuum Cleaner Operator: [address] [address] XRay Report Signed Patient: MARY JANE SCHAEFFER MR#: [id number] : 1970 Acct:[id number] Age/Sex: 54 / F ADM Date: 07/29/24 Loc: RAD Attending Dr: ANN FOURNIER Ordering Physician: ANN FOURNIER Date of Service: 07/29/24 Procedure(s): XR rib s RT 2V Accession Number(s): [id number] cc: ANN FOURNIER [address] [address] Patient Name: MARY JANE SCHAEFFER MRN: [id number] date: 1970 Sex: F Assigned Patient Location: [facility] Current Patient Location: [facility] Accession/Order Numb er: [id number] Exam Date: 07/29/2024 15:30 Report Date: 07/29/2024 15:32 At the request of: ANN FOURNIER Procedure: XR ribs RT 2V XR ribs RT 2V 025 3:01 PM SIGNS AND SYMPTOMS: Fall , right rib pain PROTOCOL: Frontal radiograph of the chest with oblique radiographs of the right ribs COMPARISON: 09/17/2017 FINDINGS: The trachea is midli ne. The heart and mediastinal structures are within normal limits. Pleur al parenchymal opacities noted at the left lung base which is of uncertai n etiology. There is no evidence of acute displaced rib fracture. The bony thorax is intact. Degenerative changes are present in the thoracic spine. X R/XR ribs RT 2V IMPRESSION: Pleural parenchymal opacities noted at the left lung base which is of uncertain etiology. No acute displaced r ib fracture. Impression dictated by: Donald De Souza M.D.07/29/2024 3:32 PM Dictation Location: [place] [address] Electronically authenticated by: [id number] Y Date: 07/29/2024 15:32 Dictated By: Donald De Souza M.D. Signed By: 07/29/24 1535 DD/ 31 TD/TT: Vacuum Cleaner Operator: XR wrist RT 2V Reviewed date:07/29/2024 03:46:43 PM Interpretation: Performing Lab: Notes/Report: Source Facility: [place] [address] [place] [address] XRay Report Signed Patient: MARY JANE SCHAEFFER MR#: [id number] : 1970 Acct:[id number] Age/Sex: 54 / F ADM Date: 07/29/24 Loc: RAD Attending Dr: ANN FOURNIER Ordering Physician: ANN FOURNIER Date of Service: 07/29/24 Procedure(s): XR wrist RT 2V Accession Number(s): [id number] cc: ANN FOURNIER [place] [address] Patient Name: MARY JANE SCHAEFFER MRN: [id number] date: 1970 Sex: F Assigned Patient Location: [facility] Current Patient Location: [facility] Accession/Order Number: [id number] Exam Date: 07/29/2024 15:25 Report Date: 07/29/2024 15:30 At the request of: ANN FOURNIER Procedure: XR wrist RT 2V XR wrist RT 2V 07/29/2024 3:01 PM SIGNS AND SYMPTOMS: Fall, right wrist pain PROTOCOL: Frontal and lateral radiographs of the right wrist COMPARISON: None FINDINGS: The bones are in anatomic alignment. There is preservation of the radiocarpal joint and carpal rows. Vascular calcifications are present. There is mild soft tissue swelling. XR/XR wrist RT 2V IMPRESSION: No fracture. Nonspecific diffuse soft tissue swelling is noted. Impression dictated by: Donald De Souza M.D.07/29/2024 3:30 PM Dictation Location: [place] [address] Electronically authenticated by: [id number] Y Date: 07/29/2024 15:30 Dictated By: Donald De Souza M.D. Signed By: 07/29/24 153 DD/ 1530 TD/TT: Vacuum Cleaner Operator: [place] [address] XRay Report Signed Patient: MARY JANE SCHAEFFER#: [id number] : 1970 Acct:[id number] Age/Sex: 54 / F ADM Date: 07/29/24 Loc: RAD Attending Dr: ANN FOURNIER Ordering Physician: ANN FOURNIER Date of Service: 07/29/24 Procedure(s): XR wri st RT 2V Accession Number(s): [id number] cc: ANN FOURNIER [place] [address] Patient Name: MARY JANE SCHAEFFER MRN: [id number] date: 1970 Sex: F Assigned Patient Location: [facility] Current Patient Location: [facility] Accession/Order Numb er: [id number] Exam Date: 07/29/2024 15:25 Report Date: 07/29/2024 15:30 At the request of: ANN FOURNIER Procedure: XR wrist RT 2V XR wrist RT 2V 2024 3:01 PM SIGNS AND SYMPTOMS: Fall, right wrist pain PROTOCOL: Frontal an d lateral radiographs of the right wrist COMPARISON: None FINDINGS: The bones are in anatomic alignment. There is preservation of the radiocarpal joint and carpal row s. Vascular calcifications are present. There is mild soft tissue swelling. X R/XR wrist RT 2V IMPRESSION: No fracture. Nonspecific diffuse soft tissue swelling is noted. Impression dictated by: Donald De Souza M.D.07/29/2024 3:30 PM Dictation Location: [place] [address] Electronically authenticated by: [id number] Y Date: 07/29/2024 15:30 Dictated By: Donald De Souza M.D. Signed By: 07/29/24 1533 DD/ 1530 TD/TT: Vacuum Cleaner Operator: ZABRINA harper SPECT rest str Reviewed date:11/25/2023 11:13:49 AM Interpretation: Performing Lab: Notes/Report: Source Facility: [place] [address] Nuclear Medicine Report Signed Patient: MARY JANE SCHAEFFER MR#: [id number] : 1970 Acct:[id number] Age/Sex: 53 / F ADM Date: 11/20/23 Loc: NM Attending Dr: Rebeca Madrigal M.D. Ordering Physician: Rebeca Madrigal M.D. Date of Service: 11/20/23 Procedure(s): NM pretty perf SPECT rest str Accession Number(s): [id number] cc: ANN FOURNIER ; Rebeca Madrigal M.D. Patient Name: MARY JANE [facility] MR#: [id number] : 1970 Exam Date: 11/20/2023 Ordering Doctor: DR REBECA MADRIGAL M.D. RADIOLOGY REPORT PROCEDURE: NM PRETTY PERF SPECT REST STR COMPARISON: None. INDICATIONS: CHEST PAIN TECHNIQUE: Exam Description: Stress/Rest two day protocol gated SPECT Rest Imagin.8 mCi Tc-99m Cardiolite IV on 11/20/2023 Stress Imaging 26.2 mCi Tc-99m Cardiolite IV on 11/24/2023 Exercise Protocol: 0.4 mg Lexiscan given IV Heart Rate (bpm): Rest: 69 Max: 93 PMHR: 56 Blood Pressure: Rest: 136/64 Max: 136/64 Symptoms: Rest and peak stress ECG findings were pending and the exercise portion of the study was pending per attending physician Dr. HOPPER . For more details please see separate cardiac stress test report. FINDINGS: QUALITY OF STUDY: Poor. PERFUSION DEFECT: LOCATION: Mid-anterior. Apical anterior. SIZE: Small (1-2 segments). SEVERITY: Mild. TYPE: Persistent. WALL MOTION: Normal. LV SIZE: Normal. 74 mL. TID / TCD: None; 0.7 LVEF: Normal. Calculated EF 76%. SUMMARY: Myocardial perfusion imaging study has ABNORMAL findings. CONCLUSION: 1. No reversible ischemia 2. Pending exercise test results Dictated by: Hari Ibarra MD on 11/24/2023 at 14:01 Approved by: Hari Ibarra MD on 11/24/2023 at 14:02 Dictated By: Hari Ibarra M.D. Signed By: 11/24/23 1403 DD/ 1402 TD/TT: Vacuum Cleaner Operator: [place] [address] Nuclear Medicine Report Signed Patient: MARY JANE SCHAEFFER MR#: [id number] : 1970 Acct:[id number] Age/Sex: 53 / F ADM Date: 11/20/23 Loc: NM Attending Dr: Rebeca Madrigal M.D. Ordering Physician: Rebeca Madrigal M.D. Date of Service: 11/20/23 Procedure(s): NM pretty perf SPECT rest str Accession Number(s): [id number] cc: ANN FOURNIER ; Rebeca Madrigal M.D. Patient Name: MARY JANE SCHAEFFER MR#: [id number] : 1970 Exam Date: 11/20/2023 Ordering Doctor: DR REBECA MADRIGAL M.D. RADIOLOGY REPORT PROCEDURE: NM PRETTY PE RF SPECT REST STR COMPARISON: None. INDICATIONS: CHEST PAIN TECHNIQUE: Exam Description: Stress/Rest two day protocol gated SPECT Rest Imagin.8 m Ci Tc-99m Cardiolite IV on 11/20/2023 Stress Imaging 26.2 mCi Tc-99m Cardiolite IV on 11/24/2023 Exercise Protocol: 0 .4 mg Lexiscan given IV Heart Rate (bpm): Re st: 69 Max: 93 PMHR: 56 Blood Pressure: Rest : 136/64 Max: 136/64 Symptoms: Rest and peak stress ECG findings were pending and the exercise portion of the study was pending pe r attending physician Dr. HOPPER . For more details please see separate cardiac stress test report. FINDINGS: QUALITY OF STUDY: Poor. PERFUSION DEFECT: LOCATION: Mid-anteri or. Apical anterior. SIZE: Small (1-2 segments). SEVERITY: Mild. TYPE: Persistent. WALL MOTION: Normal. LV SIZE: Normal. 74 mL. TID / TCD: None; 0.7 LVEF: Normal. Calculated EF 76%. SUMMARY: Myocardial perfusion imaging study has ABNORMAL findings. CONCLUSION: 1. No reversible ischemia 2. Pending exercise test results Dictated by: Hari levin MD on 11/24/2023 at 14:01 Approved by: Hari levin MD on 11/24/2023 at 14:02 Dictated By: Sujit Ibarra M.D. Signed By: 11/24/23 1403 DD/ 1402 TD/TT: Vacuum Cleaner Operator: MARTHA echo doppler complete Reviewed date:12/08/2023 04:59:45 PM Interpretation: Performing Lab: Notes/Report: Source Facility: [place] [address] [place] [address] Cardiology Report Signed Patient: MARY JANE SCHAEFFER MR#: [id number] : 1970 Acct:[id number] Age/Sex: 53 / F ADM Date: 12/08/23 Loc: CARD Attending Dr: Rebeca Madrigal M.D. Ordering Physician: Rebeca Madrigal M.D. Date of Service: 12/08/23 Procedure(s): MARTHA echo doppler complete Accession Number(s): [id number] cc: ANN FOURNIER ; Rebeca Madrigal M.D. Patient Name: MARY JANE SCHAEFFER MR#: [id number] : 1970 Exam Date: 12/08/2023 Ordering Doctor: DR REBECA MADRIGAL M.D. ECHOCARDIOGRAM REPORT PROCEDURE: CA ECHO DOPPLER COMPLETE INDICATIONS: Dyspnea on exertion, diabetes COMPARISON: None. DESCRIPTION: COMPLETE ECHOCARDIOGRAM Real-time transthoracic echocardiography with 2D, M-mode, spectral and color flow Doppler performed. QUALITY: Technically difficult due to patient's condition. LEFT VENTRICLE: Normal chamber size. Normal left ventricular wall thickness. LV EF: Global left ventricular systolic function is difficult to assess but appears preserved; visually estimated ejection fraction is 55 to 60%. Unable to assess regional wall motion abnormalities. DIASTOLIC: Diastolic function is indeterminate. ATRIAL SEPTUM: Inadequately seen. LEFT ATRIUM: Normal chamber size. RIGHT ATRIUM: Normal chamber size. RIGHT VENTRICLE: Normal chamber size. Normal systolic function. TRICUSPID VALVE: Normal mobility and thickness. No regurgitation. Unable to assess right-sided pressures due to lack of measurable tricuspid regurgitation. MITRAL VALVE: Normal mobility and thickness. No evidence of mitral valve stenosis. Mild mitral annular calcification. No mitral regurgitation. AORTIC VALVE: Normal trileaflet appearance. No visible sclerosis. Normal leaflet mobility. No evidence of aortic valve stenosis. No aortic regurgitation. AORTIC ROOT: Normal diameter and appearance. Ascending aorta is normal in size. PULMONIC VALVE: Normal thickness and mobility. No stenosis. No regurgitation. PERICARDIUM: Anterior free space; trivial effusion versus fat pad. IVC: Not well visualized. CONCLUSION: 1. Global left ventricular systolic function is difficult to assess but appears preserved; visually estimated ejection fraction is 55 to 60% 2. Normal right ventricular size and systolic function 3. Diastolic function is indeterminate 4. No significant valvular abnormalities 5. Anterior free space; trivial effusion versus fat pad Adult Echocardiography Procedure Report Left Ventricle LVEDD (3.7 - 5.6 cm): 4.78 cm LVESD (2.2 - 4.0 cm): 3.43 cm LVIVS thickness (0.6 - 1.2 cm): 0.99 cm LVPW thickness (0.5 - 1.0 cm): 1.09 cm e': 0.07 m/s E - e': 15.68 LVOT Max Gradient: 2.07 mm[Hg] LVOT Area (cm2): 0.72 m/s Peak Velocity (LVOT): 0.72 m/s LVOT Diameter 2.32 cm Left Atrium LA Volume Index (2D A2C): 21.88 ml/m2 Left Atrium Systolic Dimension: 3.86 cm Mitral Valve MV E to A Ratio: 1.20 Mitral Valve A-Wave Peak Velocity: 0.86 m/s Mitral Valve E-Wave Peak Velocity: 1.03 m/s Right Ventricle Aorta AO Root Diam: 3.27 cm Ascending Ao Diam: 2.46 cm Aortic Valve AoV Area (Peak Jesus): 2.45 cm2, 2.45 cm2 Peak Velocity(Antegrade Flow): 1.25 m/s Peak Gradient(Antegrade Flow): 6.20 mm[Hg] Tricuspid Valve Pulmonic Valve Peak Gradient: 6.36 mm[Hg], 6.18 mm[Hg] Right Atrium Right Atrium Systolic Pressure: 29.57 ml, 29.57 ml Dictated by: Rebeca Madrigal M.D. on 12/08/2023 at 15:49 Approved by: Rebeca Madrigal M.D. on 12/08/2023 at 15:53 Dictated By: Rebeca Madrigal M.D. Signed By: 12/08/23 1555 DD/ 1553 TD/TT: Vacuum Cleaner Operator: The [address] [address] Cardiology Report Signed Patient: MARY JANE SCHAEFFER MR#: [id number] : 1970 Acct:[id number] Age/Sex: 53 / F ADM Date: 12/08/23 Loc: CARD Attending Dr: Rebeca Madrigal M.D. Ordering Physician: Rebeca Madrigal M.D. Date of Service: 12/08/23 Procedure(s): CA ech o doppler complete Accession Number(s): [id number] cc: ANN FOURNIER ; Rebeca Madrigal M.D. Patient Name: MARY JANE SCHAEFFER MR#: [id number] : 1970 Exam Date: 12/08/2023 Ordering Doctor: DR REBECA MADRIGAL M.D. ECHOCARDIOGRAM REPORT PROCEDURE: CA ECHO DOPPLER COMPLETE INDICATIONS: Dyspnea on exertion, diabetes COMPARISON: None. DESCRIPTION: COMPLET E ECHOCARDIOGRAM Real-time transthoracic echocardiography wit h 2D, M-mode, spectral and color flow Doppler performed. QUALITY: Technically difficult due to patient's condition. LEFT VENTRICLE: Norm al chamber size. Normal left ventricular wall thickness. LV EF: Global left ventricular systolic function is difficult to assess but appears preserve d; visually estimated ejection fraction is 55 to 60%. Unable to assess regional wall motion abnormalities. DIASTOLIC: Diastolic function is indeterminate. ATRIAL SEPTUM: Inadequately seen. LEFT ATRIUM: Normal chamber size. RIGHT ATRIUM: Normal chamber size. RIGHT VENTRICLE: Nor mal chamber size. Normal systolic function. TRICUSPID VALVE: Nor mal mobility and thickness. No regurgitation. Unable to assess right-side d pressures due to lack of measurable tricuspid regurgitation. MITRAL VALVE: Normal mobility and thickness. No evidence of mitral valve stenosis. Mild tim l annular calcification. No mitral regurgitation. AORTIC VALVE: Normal trileaflet appearance. No visible sclerosis. Normal leaflet mobility. No evidence of aortic valve stenosis. No aortic regurgitation. AORTIC ROOT: Normal diameter and appearance. Ascending aorta is normal in size. PULMONIC VALVE: Norm al thickness and mobility. No stenosis. No regurgitation. PERICARDIUM: Anterio r free space; trivial effusion versus fat pad. IVC: Not well visualized. CONCLUSION: 1. Global left ventricular systolic function is difficult to assess but appears preserved; visually estimated ejection fraction is 55 to 60% 2. Normal right ventricular size and systolic function 3. Diastolic functio n is indeterminate 4. No significant valvular abnormalities 5. Anterior free spa ce; trivial effusion versus fat pad Adult Echocardiograp hy Procedure Report Left Ventricle LVEDD (3.7 - 5.6 cm) : 4.78 cm LVESD (2.2 - 4.0 cm) : 3.43 cm LVIVS thickness (0.6 - 1.2 cm): 0.99 cm LVPW thickness (0.5 - 1.0 cm): 1.09 cm e': 0.07 m/s E - e': 15.68 LVOT Max Gradient: 2 .07 mm[Hg] LVOT Area (cm2): 0. 72 m/s Peak Velocity (LVOT) : 0.72 m/s LVOT Diameter 2.32 cm Left Atrium LA Volume Index (2D A2C): 21.88 ml/m2 Left Atrium Systolic Dimension: 3.86 cm Mitral Valve MV E to A Ratio: 1.20 Mitral Valve A-Wave Peak Velocity: 0.86 m/s Mitral Valve E-Wave Peak Velocity: 1.03 m/s Right Ventricle Aorta AO Root Diam: 3.27 cm Ascending Ao Diam: 2 .46 cm Aortic Valve AoV Area (Peak Jesus): 2.45 cm2, 2.45 cm2 Peak Velocity(Antegr tena Flow): 1.25 m/s Peak Gradient(Antegr tena Flow): 6.20 mm[Hg] Tricuspid Valve Pulmonic Valve Peak Gradient: 6.36 mm[Hg], 6.18 mm[Hg] Right Atrium Right Atrium Systoli c Pressure: 29.57 ml, 29.57 ml Dictated by: Rebeca Madrigal M.D. on 12/08/2023 at 15:49 Approved by: Rebeca Madrigal M.D. on 12/08/2023 at 15:53 Dictated By: Rebeca Madrigal M.D. Signed By: 12/08/23 1555 DD/ 1553 TD/TT: Vacuum Cleaner Operator: HONG Boateng or MICROSCOPIC Reviewed date:12/29/2023 10:57:59 AM Interpretation: Performing Lab: Notes/Report: [facility] , Color Urine YELLOW YELLOW Clarity Urine CLEAR CLEAR Specific [place] Urine 1.015 1.005-1.025 pH Urine 8.0 5.0-9.0 Protein Urine NEGATIVE NEG/TRACE mg/dL Glucose Urine UA NEGATIVE NEGATIVE mg/dL Bilirubin Urine NEGATIVE NEGATIVE Ketones Urine NEGATIVE NEGATIVE mg/dL Blood Urine NEGATIVE NEGATIVE Nitrite Urine NEGATIVE NEGATIVE Urobilinogen Urine 0.2 0.2-1.0 EU/dL Leukocyte Esterase Urine NEGATIVE NEGATIVE WBC Urine 0-2 NONE SEEN #/HPF RBC Urine 0-2 0-2 #/HPF Bacteria Urine NONE SEEN NONE SEEN #/HPF Mucus Urine NONE SEEN NONE SEEN Squamous Epithelial Cell Urine FEW NONE/RARE #/LPF Crystals Seen? None Seen None Seen #/HPF Cast Seen? NONE SEEN NONE SEEN #/LPF Performing Lab: see note ML - [facility] LB XR chest 2V Reviewed date:12/29/2023 10:57:59 AM Interpretation: Performing Lab: Notes/Report: Source Facility: [place] [address] [place] [address] XRay Report Signed Patient: MARY JANE SCHAEFFER MR#: [id number] : 1970 Acct:[id number] Age/Sex: 53 / F ADM Date: 12/26/23 Loc: ER Attending Dr: Ordering Physician: Maia Reyes M.D. Date of Service: 12/26/23 Procedure(s): XR chest 2V Accession Number(s): [id number] cc: ANN FOURNIER ; Maia Reyes M.D. The [place] [address] Patient Name: MARY JANE SCHAEFFER MRN: [id number] date: 1970 Sex: F Assigned Patient Location: ER Current Patient Location: ER Accession/Order Number: [id number] Exam Date: 12/26/2023 15:15 Report Date: 12/26/2023 15:51 At the request of: MAIA REYES Procedure: XR chest 2V EXAM: XR chest 2V HISTORY: Pain to left lower rib area, no injury COMPARISON: Chest x-ray obtained as part of a rib series 06/17/2023. Chest x-ray 09/04/2021. TECHNIQUE: PA, lateral chest x-ray. FINDINGS: Cardiac silhouette enlarged unchanged. Lung markings prominent stable without new or increasing lung density, consolidation or edema. No pleural effusion or pneumothorax. Slight elevation right diaphragm unchanged. XR/XR chest 2V IMPRESSION: Stable chest x-ray, no acute or new abnormality. Electronically authenticated by: MARILIN PINEDO Date: 12/26/2023 15:51 Dictated By: Marilin Pinedo M.D. Signed By: 12/26/23 1554 DD/ 50 TD/TT: Vacuum Cleaner Operator: [place] [address] XRay Report Signed Patient: MARY JANE SCHAEFFER MR#: [id number] : 1970 Acct:[id number] Age/Sex: 53 / F ADM Date: 12/26/23 Loc: ER Attending Dr: Ordering Physician: Maia Reyes M.D. Date of Service: 12/26/23 Procedure(s): XR [address] st 2V Accession Number(s): [id number] cc: ANN FOURNIER ; Maia Reyes M.D. The [place] [id number] Patient Name: MARY JANE SCHAEFFER MRN: [id number] date: 1970 Sex: F Assigned Patient Location: ER Current Patient Location: ER Accession/Order Numb er: [id number] Exam Date: 12/26/2023 15:15 Report Date: 12/26/2023 15:51 At the request of: MAIA REYES Procedure: XR chest 2V EXAM: XR chest 2V HISTORY: Pain to lef t lower rib area, no injury COMPARISON: Chest x- ray obtained as part of a rib series 06/17/2023. Chest x-ray 09/04/2021. TECHNIQUE: PA, later al chest x-ray. FINDINGS: Cardiac silhouette enlarged unchanged. Lung markings prominent stable without new or increasing lung density, consolidation or edema. No pleural effusion or pneumothorax. Slight elevation right diaphragm unchanged. X R/XR chest 2V IMPRESSION: Stable chest x-ray, no acute or new abnormality. Electronically authenticated by: MARILIN PINEDO Date: 12/26/2023 15:51 Dictated By: Marilin Pinedo M.D. Signed By: 12/26/23 1554 DD/ 155 TD/TT: Vacuum Cleaner Operator: CBC AUTO DIFF Reviewed date:01/13/2024 09:13:07 AM Interpretation: Performing Lab: Notes/Report: [facility] , White Blood Count 5.7 4.0-11.0 10 3/uL Red Blood Count 4.19 4.20-5.40 10 6/uL Hemoglobin 13.2 12.0-16.0 g/dL Hematocrit 39.5 36.0-48.0 % Mean Corpuscular Volume 94.3 81.0-99.0 fL Mean Corpuscular Hemoglobin 31.5 26.7-34.0 pg Mean Corpuscular HGB Conc 33.4 29.9-35.2 g/dL Red Cell Distribution Width 12.5 11.0-15.0 % Platelet Count 225 150-450 10 3/uL Mean Platelet Volume 11.2 9.5-13.5 fL Neutrophils Percent Auto 58.2 43.0-75.0 % Lymphocytes Percent Auto 28.0 20.5-60.0 % Monocytes Percent Auto 6.8 1.7-12.0 % Eosinophils Percent Auto 5.6 0.9-7.0 % Basophils Percent Auto 0.9 0.2-2.0 % Immature Granulocytes Pct Auto 0.5 0.0-0.5 % Neutrophils Absolute Auto 3.3 1.4-6.5 10 3/uL Lymphocytes Absolute Auto 1.6 1.2-3.8 10 3/uL Monocytes Absolute Auto 0.4 0.3-0.8 10 3/uL Eosinophils Absolute Auto 0.3 0.0-0.7 10 3/uL Basophils Absolute Auto 0.1 0.0-0.1 10 3/uL Immature Granulocytes Abs Auto 0.03 0.00-0.03 10 3/uL Performing Lab: see note ML - [facility] LB XR shoulder RT min 2V Reviewed date:07/29/2024 03:46:43 PM Interpretation: Performing Lab: Notes/Report: Source Facility: [facility]-[address] [address] XRay Report Signed Patient: MARY JANE SCHAEFFER MR#: [id number] : 1970 Acct:[id number] Age/Sex: 54 / F ADM Date: 07/29/24 Loc: RAD Attending Dr: ANN FOURNIER Ordering Physician: ANN FOURNIER Date of Service: 07/29/24 Procedure(s): XR shoulder RT min 2V Accession Number(s): [id number] cc: ANN FOURNIER [place] [address] Patient Name: MARY JANE SCHAEFFER MRN: [id number] date: 1970 Sex: F Assigned Patient Location: [facility] Current Patient Location: [facility] Accession/Order Number: [id number] Exam Date: 07/29/2024 15:32 Report Date: 07/29/2024 15:33 At the request of: ANN FOURNIER Procedure: XR shoulder RT min 2V XR shoulder RT min 2V 07/29/2024 3:01 PM SIGNS AND SYMPTOMS: Fall, right shoulder pain PROTOCOL: Frontal, Grashey, scapular Y views of the right shoulder COMPARISON: None FINDINGS: Mild hypertrophic changes are noted in the acromioclavicular joint. There is evidence of soft tissue anchoring in the right humeral head consistent with prior rotator cuff repair. The visualized right hemithorax is grossly intact. XR/XR shoulder RT min 2V IMPRESSION: No fracture or dislocation. Degenerative changes are noted in the right shoulder with findings consistent with previous rotator cuff repair. Impression dictated by: Donald De Souza M.D.07/29/2024 3:33 PM Dictation Location: [place] [address] Electronically authenticated by: [id number] Y Date: 07/29/2024 15:33 Dictated By: Donald De Souza M.D. Signed By: 07/29/24 1536 DD/ 153 TD/TT: Vacuum Cleaner Operator: [place] [id number] XRay Report Signed Patient: MARY JANE SCHAEFFER MR#: [id number] : 1970 Acct:[id number] Age/Sex: 54 / F ADM Date: 07/29/24 Loc: RAD Attending Dr: ANN FOURNIER Ordering Physician: ANN FOURNIER Date of Service: 07/29/24 Procedure(s): XR shoulder RT min 2V Accession Number(s): [id number] cc: ANN FOURNIER [place] [address] Patient Name: MARY JANE Foy [facility] MRN: [id number] date: 1970 Sex: F Assigned Patient Location: [facility] Current Patient Location: [facility] Accession/Order Numb er: [id number] Exam Date: 07/29/2024 15:32 Report Date: 07/29/2024 15:33 At the request of: ANN FOURNIER Procedure: XR should er RT min 2V XR shoulder RT min 2 V 07/29/2024 3:01 PM SIGNS AND SYMPTOMS: Fall, right shoulder pain PROTOCOL: Frontal, Grashey, scapular Y views of the right shoulder COMPARISON: None FINDINGS: Mild hypertrophic changes are noted in the acromioclavicular joint. There is evidence of soft tis gracie anchoring in the right humeral head consistent with prior rotator cuff repair. The visualized right hemithorax is grossly intact. X R/XR shoulder RT min 2V IMPRESSION: No fracture or dislocation. Degenerative changes are noted in the right shoulder with findings consistent with previous rotato r cuff repair. Impression dictated by: Donlad De Souza M.D.07/29/2024 3:33 PM Dictation Location: [place] [address] Electronically authenticated by: [id number] Y Date: 07/29/2024 15:33 Dictated By: Donald De Souza M.D. Signed By: 07/29/24 1536 DD/ 1533 TD/TT: Vacuum Cleaner Operator: CBC AUTO DIFF Reviewed date:09/23/2024 12:02:34 PM Interpretation: Performing Lab: Notes/Report: [facility] , White Blood Count 5.9 4.0-11.0 10 3/uL Red Blood Count 3.92 4.20-5.40 10 6/uL Hemoglobin 12.0 12.0-16.0 g/dL Hematocrit 36.1 36.0-48.0 % Mean Corpuscular Volume 92.1 81.0-99.0 fL Mean Corpuscular Hemoglobin 30.6 26.7-34.0 pg Mean Corpuscular HGB Conc 33.2 29.9-35.2 g/dL Red Cell Distribution Width 13.9 11.0-15.0 % Platelet Count 205 150-450 10 3/uL Mean Platelet Volume 11.5 9.5-13.5 fL Neutrophils Percent Auto 49.7 43.0-75.0 % Lymphocytes Percent Auto 30.8 20.5-60.0 % Monocytes Percent Auto 8.5 1.7-12.0 % Eosinophils Percent Auto 9.5 0.9-7.0 % Basophils Percent Auto 1.0 0.2-2.0 % Immature Granulocytes Pct Auto 0.5 0.0-0.5 % Neutrophils Absolute Auto 3.0 1.4-6.5 10 3/uL Lymphocytes Absolute Auto 1.9 1.2-3.8 10 3/uL Monocytes Absolute Auto 0.5 0.3-0.8 10 3/uL Eosinophils Absolute Auto 0.6 0.0-0.7 10 3/uL Basophils Absolute Auto 0.1 0.0-0.1 10 3/uL Immature Granulocytes Abs Auto 0.03 0.00-0.03 10 3/uL Performing Lab: see note ML - [facility] LB GLYCOHEMOGLOBIN A1C Reviewed date:09/23/2024 12:02:34 PM Interpretation: Performing Lab: Notes/Report: [facility] , Glycohemoglobin A1C 9.4 4.5-6.2 % ADA RECOMMENDED LIMIT 4.0 - 6.0 ADA THERAPEUTIC TARGET < 7.0 ACTION SUGGESTED > 7.0 Estimated Average Glucose 223 Performing Lab: see note - [facility] LB INSULIN Reviewed date:09/24/2024 01:08:40 PM Interpretation: Performing Lab: Notes/Report: [facility] , Insulin 98.3 2.6-24.9 uIU/mL Performed at: [facility] Lab[address] [id number] Library Technology Instructor: Godwin Menjivar PhD, Phone: [phone] Performing Lab: see note LC - [facility] LB LIPID PROFILE Reviewed date:09/23/2024 12:02:34 PM Interpretation: Performing Lab: Notes/Report: [facility] , Triglycerides 236 <=150 mg/dL Cholesterol 200 <=200 mg/dL HDL Cholesterol 46 40-60 mg/dL > or =60 mg/dl - LOW CARDIOVASCULAR RISK <40 mg/dl - HIGH CARDIOVASCULAR RISK LDL Cholesterol Calculated 107.0 <100 mg/dl OPTIMAL 100-129 mg/dl NEAR OR ABOVE OPTIMAL 130-159 mg/dl BORDERLINE HIGH 160-189 mg/dl HIGH >190 mg/dl VERY HIGH VLDL CHOLESTEROL 47.2 Chol HDL Ratio 4.3 3.3 - 4.4 LOW RISK 4.4 - 7.1 AVERAGE RISK 7.1 - 11.0 MODERATE RISK >11.0 HIGH RISK Performing Lab: see note ML - [facility] LB LIVER PROFILE Reviewed date:09/23/2024 12:02:34 PM Interpretation: Performing Lab: Notes/Report: [facility] , Bilirubin Total 0.4 0.2-1.0 mg/dL Bilirubin Direct 0.1 0.0-0.2 mg/dL Aspartate Amino Transferase 29 15-37 U/L Alanine Aminotransferase 35 14-59 U/L Alkaline Phosphatase 72 46-116 U/L Total Protein 7.3 6.4-8.2 g/dL Albumin Level 3.6 3.4-5.0 g/dL Globulin 3.7 Albumin Globulin Ratio 1.0 Performing Lab: see note ML - [facility] LB MAGNESIUM Reviewed date:09/23/2024 12:02:34 PM Interpretation: Performing Lab: Notes/Report: [facility] , Magnesium 2.0 1.8-2.4 mg/dL Performing Lab: see note ML - [facility] LB MICROALB CREAT RATIO RANDOM Reviewed date:09/23/2024 12:02:34 PM Interpretation: Performing Lab: Notes/Report: [facility] , Microalbumin Urine Random 15.1 <=30.0 mg/dL Creatinine Urine Random 137.35 20.00-30 0.00 mg/dL Microalbum Creatinine Ratio Ur 109.9 0.0-29.9 mg/g NO MICROALBUMINURIA 0-29 MG/G CLINICAL MICROALBUMINURIA 30-300 MG/G MACROALBUMINURIA >300 MG/G Performing Lab: see note ML - [facility] LB RENAL FUNCTION PANEL Reviewed date:09/23/2024 12:02:34 PM Interpretation: Performing Lab: Notes/Report: [facility] , Sodium 143 136-145 mmol/L Potassium 4.4 3.5-5.1 mmol/L Chloride 108 98-107 mmol/L Carbon Dioxide 25.2 21.0-32.0 mmol/L Anion Gap 14.2 Glucose 102 74-106 mg/dL Blood Urea Nitrogen 32.0 7.0-18.0 mg/dL Creatinine 1.36 0.55-1.02 mg/dL Estimated GFR ( Anneliese 49 >=60 mL/min/1.73m 2 Estimated GFR (Non- Michela 40 >=60 mL/min/1.73m 2 BUN Creatinine Ratio 23.5 Calcium 9.4 8.5-10.1 mg/dL Phosphorus 3.8 2.6-4.7 mg/dL Albumin Level 3.6 3.4-5.0 g/dL Performing Lab: see note ML - [facility] LB UA RANDOM W or MICROSCOPIC Reviewed date:09/23/2024 12:02:34 PM Interpretation: Performing Lab: Notes/Report: [facility] , Color Urine LT. YELLOW YELLOW Clarity Urine CLEAR CLEAR Specific [place] Urine 1.025 1.005-1.025 pH Urine 6.0 5.0-9.0 Protein Urine TRACE NEG/TRACE mg/dL Glucose Urine UA NEGATIVE NEGATIVE mg/dL Bilirubin Urine NEGATIVE NEGATIVE Ketones Urine NEGATIVE NEGATIVE mg/dL Blood Urine NEGATIVE NEGATIVE Nitrite Urine NEGATIVE NEGATIVE Urobilinogen Urine 0.2 0.2-1.0 EU/dL Leukocyte Esterase Urine TRACE NEGATIVE WBC Urine 0-2 NONE SEEN #/HPF RBC Urine 0-2 0-2 #/HPF Bacteria Urine TRACE NONE SEEN #/HPF Mucus Urine SMALL NONE SEEN Squamous Epithelial Cell Urine FEW NONE/RARE #/LPF Transitional Epi Cells Urine FEW NONE SEEN #/LPF Crystals Seen? None Seen None Seen #/HPF Cast Seen? NONE SEEN NONE SEEN #/LPF Urine Culture Indicated NO Performing Lab: see note ML - [facility] LB URIC ACID SERUM Reviewed date:09/23/2024 12:02:34 PM Interpretation: Performing Lab: Notes/Report: [facility] , Uric Acid 9.7 2.6-6.0 mg/dL Performing Lab: see note - [facility] LB URINE T PROTEIN CREAT RATIO Reviewed date:09/23/2024 12:02:34 PM Interpretation: Performing Lab: Notes/Report: [facility] , Total Protein Urine Random 39.1 <=11.9 mg/dL Creatinine Urine Random 138.55 20.00-30 0.00 mg/dL Protein Creatinine Ratio Urine 0.28 Performing Lab: see note ML - [facility] CBC no Diff (Hemogram) Reviewed date:09/23/2024 12:02:34 PM Interpretation: Performing Lab: Notes/Report: [facility] , White Blood Count 5.9 4.0-11.0 10 3/uL Red Blood Count 3.92 4.20-5.40 10 6/uL Hemoglobin 12.0 12.0-16.0 g/dL Hematocrit 36.1 36.0-48.0 % Mean Corpuscular Volume 92.1 81.0-99.0 fL Mean Corpuscular Hemoglobin 30.6 26.7-34.0 pg Mean Corpuscular HGB Conc 33.2 29.9-35.2 g/dL Red Cell Distribution Width 13.9 11.0-15.0 % Platelet Count 205 150-450 10 3/uL Mean Platelet Volume 11.5 9.5-13.5 fL Performing Lab: see note ML - [facility] C-Peptide, Serum Reviewed date:09/23/2024 12:02:34 PM Interpretation: Performing Lab: Notes/Report: [facility] , C-Peptide, Serum 1.7 1.1-4.4 ng/mL C-Peptide reference interval is for fasting patients. Performed at: - [facility] [address] [id number] Library Technology Instructor: Godwin Menjivar PhD, Phone: [phone] Performing Lab: see note - [facility] LB BNP Reviewed date:10/07/2024 11:17:12 AM Interpretation: Performing Lab: Notes/Report: [facility] , NT Pro B Type Natriuretic Pept 5250.0 <=900.0 pg/mL RESULTS CALLED TO [place] Olson Performing Lab: see note ML - [facility] CBC AUTO DIFF Reviewed date:10/07/2024 11:17:12 AM Interpretation: Performing Lab: Notes/Report: [facility] , White Blood Count 7.7 4.0-11.0 10 3/uL Red Blood Count 2.89 4.20-5.40 10 6/uL Hemoglobin 9.0 12.0-16.0 g/dL Hematocrit 27.9 36.0-48.0 % Mean Corpuscular Volume 96.5 81.0-99.0 fL Mean Corpuscular Hemoglobin 31.1 26.7-34.0 pg Mean Corpuscular HGB Conc 32.3 29.9-35.2 g/dL Red Cell Distribution Width 14.9 11.0-15.0 % Platelet Count 136 150-450 10 3/uL Mean Platelet Volume 12.6 9.5-13.5 fL Performing Lab: see note ML - [facility] LB PTT Reviewed date:10/07/2024 11:17:12 AM Interpretation: Performing Lab: Notes/Report: [facility] , Partial Thromboplastin Time 34.7 22.3-36.2 sec Performing Lab: see note - [facility] Prothrombin Time INR Reviewed date:10/07/2024 11:17:12 AM Interpretation: Performing Lab: Notes/Report: [facility] , Prothrombin Time 11.7 9.0-11.6 sec INR 1.12 DESIRED INR: 2.0-3.0 CONDITIONS NOT LISTED BELOW 2.5-3.5 FOR PROSTHETIC HEART VALVE REPLACEMENT 2.5-3.5 RECURRENT THROMBOSIS Performing Lab: see note ML - [facility] LB Manual Differential Reviewed date:10/07/2024 11:17:12 AM Interpretation: Performing Lab: Notes/Report: [facility] , Segmented Neutrophils % Manual 95.0 43.0-75.0 Lymphocytes Percent Manual 4.0 20.5-60.0 % Monocytes Percent Manual 1.0 1.7-12.0 % Eosinophils Percent Manual 0.0 0.9-7.0 % Basophils Percent Manual 0.0 0.2-2.0 % Segmented Neut Absolute Manual 7.31 1.4-6.5 10 3/uL Lymphocytes Absolute Manual 0.30 1.20-3.80 10 3/uL Monocytes Absolute Manual 0.07 0.30-0.80 10 3/uL Eosinophils Absolute Manual 0.00 0.00-0.70 10 3/uL Basophils Abs Manual 0.00 0.00-0.10 1 0 3/uL Anisocytosis 2+ Performing Lab: see note ML - [facility] LB SARS-CoV-2 Ag* Reviewed date:10/07/2024 11:17:12 AM Interpretation: Performing Lab: Notes/Report: [facility] , SARS-CoV-2 Ag NEGATIVE NEGATIVE This test has not been FDA cleared or approved, but has been authorized by the FDA under an Emergency Use Authorization (EUA) for use by authorized laboratories certified under CLIA that meet the requirements to perform moderate or high complexity testing. This test has been authorized only for the detection of proteins from SARS-CoV-2, not for any other viruses or pathogens. The emergency use of this test is authorized for the duration of the declaration that circumstances exist justifying the authorization of emergency use of in vitro diagnostic tests for detection and/or diagnosis of Covid-19 under section 564(b)(1) of the Act, 21 U.S.C. 360bbb-3(b)(1), unless the declaration is terminated or authorization is revoked sooner. Performing Lab: see note ML - [facility] LB ECG 12 lead Reviewed date:10/07/2024 11:17:12 AM Interpretation: Performing Lab: Notes/Report: Source Facility: [facility]-[address] [place] [address] [place] [address] Electrocardiograph Report Signed Patient: MARY JANE SCHAEFFER MR#: [id number] : 1970 Acct:[id number] Age/Sex: 54 / F ADM Date: 10/06/24 Loc: ER Attending Dr: Ordering Physician: Maia Reyes M.D. 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 Measurements Intervals [place] Rate: 98 P: 40 TX: 140 QRS: 104 QRSD: 80 T: 35 QT: 340 QTc: 395 Interpretive Statements 1100 Sinus rhythm 3113 Cannot rule out anterior myocardial infarction, probably old 7100 Abnormal right axis deviation 9150 abnormal ECG Compared to ECG 09/07/2021 12:09:35 Right-axis deviation now present Electronically Signed On 10-06-2024 18:14:34 EDT by NANDA KAUR M.D. Dictated By: NANDA KAUR Signed By: 10/06/241813 DD/ 1317 TD/TT: Vacuum Cleaner Operator: [place] [address] Electrocardiograph Report Signed Patient: MARY JANE SCHAEFFER MR#: [id number] : 1970 Acct:[id number] Age/Sex: 54 / F ADM Date: 10/06/24 Loc: ER Attending Dr: Ordering Physician: Maia Reyes M.D. 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 Measurements Intervals [place] Rate: 98 P: 40 TX: 140 QRS: 104 QRSD: 80 T: 35 QT: 340 QTc: 395 Interpretive Statements 1100 Sinus rhythm 3113 Cannot rule out anterior myocardial infarction, probably old 7100 Abnormal right axis deviation 9150 abnormal ECG Compared to ECG 09/07/2021 12:09:35 Right-axis deviation now present Electronically Kianna d On 10-06-2024 18:14:34 EDT by NANDA KAUR M.D. Dictated By: NANDA KAUR Signed By: 10/06/241813 DD/ 1317 TD/TT: Vacuum Cleaner Operator: Troponin I High Sensitivity Reviewed date:10/07/2024 11:17:12 AM Interpretation: Performing Lab: Notes/Report: [facility] , Troponin I High Sensitivity 239.6 4.0-51.3 pg/mL RESULTS CALLED TO DR. REYES CUT-OFF POINTS HAVE BEEN ESTABLISHED BASED ON THE FOURTH UNIVERSAL DEFINITION OF MYOCARDIAL INFARCTION. THE UPPER REFERENCE LIMIT (URL) OF TROPONIN, DEFINED THE 99TH PERCENTILE OF cTnI DISTRIBUTION IN A REFERENCE POPULATION, HAS BEEN CONFIRMED THE DECISION THRESHOLD FOR NE DIAGNOSIS. 99TH PERCENTILE = 51.4 PG/ML NOTE: HIGH-SENSITIVITY TROPONIN ASSAY IS NOT INTENDED TO BE USED IN ISOLATION BUT SHOULD BE INTERPRETED IN CONJUNCTION WITH OTHER DIAGNOSTIC AND CLINICAL INFORMATION. Performing Lab: see note - [facility] LB Blood Culture 2 Reviewed date:10/11/2024 04:36:51 PM Interpretation: Performing Lab: Notes/Report: R HAND - PEDS [facility] , Blood Culture 2 See Below For Report Blood Culture 2 NG5D NO GROWTH AT 5 DAYS.^NO GROWTH AT 5 DAYS. Performing Lab: see note - [facility] LB Blood Culture 1 Reviewed date:10/11/2024 04:36:51 PM Interpretation: Performing Lab: Notes/Report: L AC [facility] , Blood Culture 1 See Below For Report Blood Culture 1 NG5D NO GROWTH AT 5 DAYS.^NO GROWTH AT 5 DAYS. Performing Lab: see note [facility] PROF CHEM 8 (BAS METB) Reviewed date:10/07/2024 11:17:12 AM Interpretation: Performing Lab: Notes/Report: [facility] , Sodium 135 136-145 mmol/L Potassium 4.7 3.5-5.1 mmol/L Chloride 103 98-107 mmol/L Carbon Dioxide 18.3 21.0-32.0 mmol/L Anion Gap 18.4 Glucose 498 74-106 mg/dL Blood Urea Nitrogen 33.0 7.0-18.0 mg/dL Creatinine 1.84 0.55-1.02 mg/dL Estimated GFR ( Anneliese 34 >=60 mL/min/1.73m 2 Estimated GFR (Non- Michela 28 >=60 mL/min/1.73m 2 BUN Creatinine Ratio 17.9 Calcium 9.2 8.5-10.1 mg/dL Performing Lab: see note ML - [facility] LB INFLUENZA A AND B AG Reviewed date:10/07/2024 11:17:12 AM Interpretation: Performing Lab: Notes/Report: [facility] , Influenza Virus A Antigen Negative Negative for Flu A protein antigen. Infection due to Flu A cannot be ruled out. Flu A antigen in the sample may be below the detection limit of the test. Influenza Virus B Antigen Negative Negative for Flu B protein antigen. Infection due to Flu B cannot be ruled out. Flu B antigen in the sample may be below the detection limit of the test. Performing Lab: see note ML - [facility] LB PTH, Intact Reviewed date:09/23/2024 12:02:34 PM Interpretation: Performing Lab: Notes/Report: [facility] , PTH, Intact 14 15-65 pg/mL Performed at: [facility] [address] [id number] Library Technology Instructor: Godwin Menjivar PhD, Phone: [phone] Performing Lab: see note - [facility] LB VITAMIN D 25 [place] Reviewed date:09/23/2024 12:02:34 PM Interpretation: Performing Lab: Notes/Report: [facility] , Vitamin D 70.9 <20 ng/mL Vit D deficient 20-<30 ng/mL Vit D insufficient 30-100 ng/mL Vit D sufficient >100 ng/mL Potential Toxicity Performing Lab: see note ML - [facility] LB IRON Reviewed date:09/23/2024 12:02:34 PM Interpretation: Performing Lab: Notes/Report: [facility] , Iron 123.0 50.0-170.0 ug/dL Performing Lab: see note ML - [facility] LB CT head/brain wo con Reviewed date:09/05/2024 09:45:10 PM Interpretation: Performing Lab: Notes/Report: Source Facility: [facility]-[address] [place] [address] [place] [address] CT Scan Report Signed Patient: MARY JANE SCHAEFFER MR#: [id number] : 1970 Acct:[id number] Age/Sex: 54 / F ADM Date: 08/31/24 Loc: CT Attending Dr: ANN FOURNIER Ordering Physician: ANN FOURNIER Date of Service: 08/31/24 Procedure(s): CT head/brain wo con Accession Number(s): [id number] cc: ANN FOURNIER [place] [address] Patient Name: MARY JANE SCHAEFFER MRN: [id number] date: 1970 Sex: F Assigned Patient Location: CT Current Patient Location: CT Accession/Order Number: [id number] Exam Date: 08/31/2024 17:39 Report Date: 08/31/2024 17:41 At the request of: ANN FOURNIER Procedure: CT head/brain wo con Unenhanced head CT TECHNIQUE: Contiguous axial imaging of the head. The CT exam was performed using one or more the following dose reduction techniques: Automated exposure control, adjustment of the MA and/or Kv according to patient size, or use of the iterative reconstruction technique. COMPARISON: None HISTORY: Head injury. VENTRICLES: Within normal limits ATROPHY: None BRAIN PARENCHYMA: Adequate corbin-white matter differentiation identified. HEMORRHAGE: None HERNIATION: No mass effect or herniation INFARCTION: No recent vascular distribution infarction is seen. EXTRA-AXIAL FLUID COLLECTIONS None MIDBRAIN: Unremarkable OZZY: Unremarkable MEDULLA: Unremarkable SINUSES: Unremarkable ORBITS: Grossly unremarkable MASTOIDS: Unremarkable BONY STRUCTURES Intact ADDITIONAL FINDINGS: CT/CT head/brain wo con IMPRESSION: No acute findings. Impression dictated by: Mihai Jackson M.D.08/31/2024 5:41 PM Dictation Location: [place] [address] Electronically authenticated by: [id number] Y Date: 08/31/2024 17:41 Dictated By: Mihai Jackson D.O. Signed By: 08/31/241743 DD/ 40 TD/TT: Vacuum Cleaner Operator: [place] [address] CT Scan Report Signed Patient: MARY JANE SCHAEFFER MR#: [id number] : 1970 Acct:[id number] Age/Sex: 54 / F ADM Date: 08/31/24 Loc: CT Attending Dr: ANN FOURNIER Ordering Physician: ANN FOURNIER Date of Service: 08/31/24 Procedure(s): CT head/brain wo con Accession Number(s): [id number] cc: ANN FOURNIER [place] [id number] Patient Name: MARY JANE Foy [facility] MRN: [id number] date: 1970 Sex: F Assigned Patient Location: CT Current Patient Location: CT Accession/Order Numb er: [id number] Exam Date: 08/31/2024 17:39 Report Date: 08/31/2024 17:41 At the request of: ANN FOURNIER Procedure: CT head/b rain wo con Unenhanced head CT TECHNIQUE: Contiguou s axial imaging of the head. The CT exam was performed using one or more th e following dose reduction techniques: Automated exposure control, adjustment of the MA and/or Kv according to patient size, or use of the iterative reconstruction technique. COMPARISON: None HISTORY: Head injury. VENTRICLES: Within normal limits ATROPHY: None BRAIN PARENCHYMA: Adequate corbin-white matter differentiation identified. HEMORRHAGE: None HERNIATION: No mass effect or herniation INFARCTION: No recen t vascular distribution infarction is seen. EXTRA-AXIAL FLUID COLLECTIONS None MIDBRAIN: Unremarkable OZZY: Unremarkable MEDULLA: Unremarkable SINUSES: Unremarkable ORBITS: Grossly unremarkable MASTOIDS: Unremarkable BONY STRUCTURES Intact ADDITIONAL FINDINGS: C T/CT head/brain wo con IMPRESSION: No acute findings. Impression dictated by: Mihai Jackson M.D.08/31/2024 5:41 PM Dictation Location: [place] [address] Electronically authenticated by: [id number] Y Date: 08/31/2024 17:41 Dictated By: Mihai Jackson D.O. Signed By: 08/31/241743 DD/ 40 TD/TT: Vacuum Cleaner Operator: Erythrocyte Sedimentation Ra te Reviewed date:01/13/2024 09:13:08 AM Interpretation: Performing Lab: Notes/Report: [facility] , Erythrocyte Sedimentation Rate 109 <=30 mm/hr Performing Lab: see note ML - [facility] LB PROF 14(COMP METB) Reviewed date:01/13/2024 09:13:08 AM Interpretation: Performing Lab: Notes/Report: [facility] , Sodium 138 136-145 mmol/L Potassium 3.9 3.5-5.1 mmol/L Chloride 100 98-107 mmol/L Carbon Dioxide 30.4 21.0-32.0 mmol/L Anion Gap 11.5 Glucose 195 74-106 mg/dL Blood Urea Nitrogen 38.0 7.0-18.0 mg/dL Creatinine 1.49 0.55-1.02 mg/dL Estimated GFR ( Anneliese 44 >=60 Estimated GFR (Non- Michela 36 >=60 BUN Creatinine Ratio 25.5 Calcium 9.6 8.5-10.1 mg/dL Bilirubin Total 0.5 0.2-1.0 mg/dL Aspartate Amino Transferase 28 15-37 U/L Alanine Aminotransferase 35 14-59 U/L Alkaline Phosphatase 66 46-116 U/L Total Protein 7.8 6.4-8.2 g/dL Albumin Level 3.7 3.4-5.0 g/dL Globulin 4.1 Albumin Globulin Ratio 0.9 Performing Lab: see note ML - [facility] LB CRP Reviewed date:01/13/2024 09:12:56 AM Interpretation: Performing Lab: Notes/Report: [facility] , C Reactive Protein 0.56 <=0.50 mg/dL Performing Lab: see note ML - [facility] LB PROF 14(COMP METB) Reviewed date:11/24/2023 10:13:53 AM Interpretation: Performing Lab: Notes/Report: [facility] , Sodium 140 136-145 mmol/L Potassium 3.7 3.5-5.1 mmol/L Chloride 102 98-107 mmol/L Carbon Dioxide 24.2 21.0-32.0 mmol/L Anion Gap 17.5 Glucose 364 74-106 mg/dL Blood Urea Nitrogen 24.0 7.0-18.0 mg/dL Creatinine 1.24 0.55-1.02 mg/dL Estimated GFR ( Anneliese 54 >=60 Estimated GFR (Non- Michela 45 >=60 BUN Creatinine Ratio 19.4 Calcium 9.4 8.5-10.1 mg/dL Bilirubin Total 0.6 0.2-1.0 mg/dL Aspartate Amino Transferase 38 15-37 U/L Alanine Aminotransferase 47 14-59 U/L Alkaline Phosphatase 77 46-116 U/L Total Protein 7.7 6.4-8.2 g/dL Albumin Level 3.5 3.4-5.0 g/dL Globulin 4.2 Albumin Globulin Ratio 0.8 Performing Lab: see note - [facility] LB LIPID PROFILE Reviewed date:11/24/2023 10:13:53 AM Interpretation: Performing Lab: Notes/Report: [facility] , Triglycerides 229 <=150 mg/dL Cholesterol 192 <=200 mg/dL HDL Cholesterol 37 40-60 mg/dL > or =60 mg/dl - LOW CARDIOVASCULAR RISK <40 mg/dl - HIGH CARDIOVASCULAR RISK LDL Cholesterol Calculated 110.0 <100 mg/dl OPTIMAL 100-129 mg/dl NEAR OR ABOVE OPTIMAL 130-159 mg/dl BORDERLINE HIGH 160-189 mg/dl HIGH >190 mg/dl VERY HIGH VLDL CHOLESTEROL 45.8 Chol HDL Ratio 5.2 3.3 - 4.4 LOW RISK 4.4 - 7.1 AVERAGE RISK 7.1 - 11.0 MODERATE RISK >11.0 HIGH RISK Performing Lab: see note ML - [facility] CT abdomen pelvis w con Reviewed date:09/23/2024 11:53:25 AM Interpretation: Performing Lab: Notes/Report: Source Facility: [place] [address] CT Scan Report Signed Patient: MARY JANE SCHAEFFER MR#: [id number] : 1970 Acct:[id number] Age/Sex: 54 / F ADM Date: 09/22/24 Loc: LAB Attending Dr: ANN FOURNIER Ordering Physician: ANN FOURNIER Date of Service: 09/22/24 Procedure(s): CT abdomen pelvis w con Accession Number(s): [id number] cc: ANN FOURNIER [place] [address] Patient Name: MARY JANE SCHAEFFER MRN: [id number] date: 1970 Sex: F Assigned Patient Location: LAB Current Patient Location: LAB Accession/Order Number: [id number] Exam Date: 09/22/2024 13:44 Report Date: 09/22/2024 13:50 At the request of: ANN FOURNIER Procedure: CT abdomen pelvis w con CT Abdomen and Pelvis withcontrast TECHNIQUE: Axial imaging with 2-D reconstruction.100 cc of Omnipaque 300. The CT exam was performed using one or more the following dose reduction techniques: Automated exposure control, adjustment of the MA and/or Kv according to patient size, or use of the iterative reconstruction technique. COMPARISON: None History: Chronic abdominal wound. LIMITATIONS: None LOWER THORAX Unremarkable LIVER: Hepatic steatosis. Hepatomegaly. GALLBLADDER: No gallbladder abnormality identified. BILE DUCTS: No dilatation SPLEEN: Splenomegaly PANCREAS: Unremarkable ADRENAL GLANDS: Unremarkable KIDNEYS:Unremarkable AORTA: No abdominal aortic aneurysm identified. RETROPERITONEUM: No significant retroperitoneal abnormalities identified. MESENTERY:Unremarkable SMALL BOWEL: The small bowel loops are nondistended. APPENDIX: The appendix is normal. COLON: Unremarkable URINARY BLADDER: Urinary bladder is unremarkable. REPRODUCTIVE SYSTEM: Reproductive structures are unremarkable. PNEUMOPERITONEUM: None PERITONEAL FLUID:None BONY STRUCTURES: Degenerative change. ABDOMINAL WALL: Small fat-containing umbilical hernia. Anterior abdominal wall relaxation. 2 cm left lower quadrant subcutaneous nodule likely inflammatory. No soft tissue fluid collections. No subcutaneous air. CT/CT abdomen pelvis w con IMPRESSION: No subcutaneous air. No fluid collection. No acute abdominal or pelvic findings. Fatty hepatomegaly. Splenomegaly. Small fat-containing umbilical hernia. Impression dictated by: Mihai Jackson M.D.09/22/2024 1:50 PM Dictation Location: [place] [address] Electronically authenticated by: [id number] Y Date: 09/22/2024 13:50 Dictated By: Mihai Jackson D.O. Signed By: 09/22/24 1352 DD/ 1350 TD/TT: Vacuum Cleaner Operator: [place] [address] CT Scan Report Signed Patient: MARY JANE SCHAEFFER MR#: [id number] : 1970 Acct:[id number] Age/Sex: 54 / F ADM Date: 09/22/24 Loc: LAB Attending Dr: ANN FOURNIER Ordering Physician: ANN FOURNIER Date of Service: 09/22/24 Procedure(s): CT abd omen pelvis w con Accession Number(s): [id number] cc: ANN FOURNIER [facility] [address] [place] [id number] [facility]: [facility] MRN: [id number] date: 1970 Sex: F Assigned Patient Location: LAB Current Patient Location: LAB Accession/Order Numb er: [id number] Exam Date: 09/22/2024 13:44 Report Date: 09/22/2024 13:50 At the request of: ANN FOURNIER Procedure: CT abdome n pelvis w con CT Abdomen and Pelvi s withcontrast TECHNIQUE: Axial louis ging with 2-D reconstruction.100 cc of Omnipaque 300. The CT exam was performe d using one or more the following dose reduction techniques: Automate d exposure control, adjustment of the MA and/or Kv according to patient size, or use of the iterative reconstruction technique. COMPARISON: None History: Chronic abdominal wound. LIMITATIONS: None LOWER THORAX Unremarkable LIVER: Hepatic steatosis. Hepatomegaly. GALLBLADDER: No gallbladder abnormality identified. BILE DUCTS: No dilatation SPLEEN: Splenomegaly PANCREAS: Unremarkable ADRENAL GLANDS: Unremarkable KIDNEYS:Unremarkable AORTA: No abdominal aortic aneurysm identified. RETROPERITONEUM: No significant retroperitoneal abnormalities identified. MESENTERY:Unremarkable SMALL BOWEL: The sma ll bowel loops are nondistended. APPENDIX: The append ix is normal. COLON: Unremarkable URINARY BLADDER: Uri nary bladder is unremarkable. REPRODUCTIVE SYSTEM: Reproductive structures are unremarkable. PNEUMOPERITONEUM: None PERITONEAL FLUID:None BONY STRUCTURES: Degenerative change. ABDOMINAL WALL: Smal l fat-containing umbilical hernia. Anterior abdominal wall relaxation. 2 c m left lower quadrant subcutaneous nodule likely inflammatory. No sof t tissue fluid collections. No subcutaneous air. C T/CT abdomen pelvis w con IMPRESSION: No subcutaneous air. No fluid collection. No acute abdominal or pelvic findings. Fat ty hepatomegaly. Splenomegaly. Small fat-containing umbilical hernia. Impression dictated by: Mihai Jackson M.D.09/22/2024 1:50 PM Dictation Location: [place] [address] Electronically authenticated by: [id number] Y Date: 09/22/2024 13:50 Dictated By: Mihai Jackson D.O. Signed By: 09/22/24 1352 DD/ 1350 TD/TT: Vacuum Cleaner Operator: Blood Culture 2 Reviewed date:01/19/2024 12:44:09 PM Interpretation: Performing Lab: Notes/Report: [facility] , Blood Culture 2 See Below For Report Blood Culture 2 NG5D NO GROWTH AT 5 DAYS. Performing Lab: see note ML - [facility] Blood Culture 1 Reviewed date:01/19/2024 12:44:09 PM Interpretation: Performing Lab: Notes/Report: [facility] , Blood Culture 1 See Below For Report Blood Culture 1 NG5D NO GROWTH AT 5 DAYS. Performing Lab: see note ML - [facility] Troponin I High Sensitivity Reviewed date:10/07/2024 11:17:12 AM Interpretation: Performing Lab: Notes/Report: [facility] , Troponin I High Sensitivity 254.3 4.0-51.3 pg/mL RESULTS CALLED TO EMMIE ELLIOTT RN CUT-OFF POINTS HAVE BEEN ESTABLISHED BASED ON THE FOURTH UNIVERSAL DEFINITION OF MYOCARDIAL INFARCTION. THE UPPER REFERENCE LIMIT (URL) OF TROPONIN, DEFINED THE 99TH PERCENTILE OF cTnI DISTRIBUTION IN A REFERENCE POPULATION, HAS BEEN CONFIRMED THE DECISION THRESHOLD FOR NE DIAGNOSIS. 99TH PERCENTILE = 51.4 PG/ML NOTE: HIGH-SENSITIVITY TROPONIN ASSAY IS NOT INTENDED TO BE USED IN ISOLATION BUT SHOULD BE INTERPRETED IN CONJUNCTION WITH OTHER DIAGNOSTIC AND CLINICAL INFORMATION. Performing Lab: see note ML - [facility] Reason For Referral Diagnosis 1 Eschar (R23.4) Referral Organization [facility] Referring Provider First Name Ann Referring Provider Last Name Josefina Referring Provider [facility] icine Referred Provider Manolo Sanchez Referred Provider Specialty Surgery Referral Priority Routine Reason Switching providers- second opinion/ treatment Diagnosis 1 Abdominal abscess (K 65.1) Referral Organization [facility] Referring Provider First Name Ann Referring Provider Last Name Josefina Referring Provider [facility] icine Referred Provider [place], Wound Car e Referred Provider Specialty Wound Care Referral Priority Routine Reason vertigo Diagnosis 1 Vertigo (R42) Referral Organization [facility] Referring Provider First Name Ann Referring Provider Last Name Josefina Referring Provider [facility] icine Referred Provider [facility], Physical Therap y Referred Provider Specialty Physical The rapist Referral Priority Routine Medications Medication SIG (Take, Route, Frequency, Duration) Notes Start Date End Date Status Iron 325 (65 Fe) MG 1 tablet Orally daily Active Krill Oil Active Furosemide 20 MG 1 tablet Orally BID Active Ventolin HFA 108 (90 Base) MCG/ACT 2 puffs as needed for SOB Inhalation Q4H for 90 days Active HumuLIN R U-500 (CONCENTRATED) 500 UNIT/ML as directed Subcutaneous per insulin pump - Endocrin Active Vitamin C Active Fiber Select Gummies - 4 tablets Orally every evening Active Triamcinolone Acetonide 0.1 % 1 application Externally Twice a day Active Fluticasone Propionate 50 MCG/ACT 2 sprays in each nostril Nasally QD Active Trulicity 1.5 MG/0.5ML as directed Subcutaneous weekly Active Fenofibrate 160 MG TAKE 1 TABLET BY MOUTH DAILY AT BEDTIME for 90 Active Symbicort 160-4.5 MCG/ACT 2 puffs Inhalation BID for 90 days Rinse after use Active Fexofenadine HCl 180 MG 1 tablet Orally every evening Active traMADol HCl 50 MG 1 tablet as needed Orally BID prn for 7 days 12/23/2023 Active Cyclobenzaprine HCl 10 MG 1 tablet Orally Once a day for 90 days Active Repatha SureClick 140 MG/ML 1 injection Subcutaneous every 2 weeks 09/29/2024 Active Dupixent 300 MG/2ML as directed Subcutaneous Every 2 weeks Active Spiriva Respimat 1.25 MCG/ACT 2 puffs Inhalation QD for 90 days Active Pepcid 20 MG 1 tablet Orally Daily Active Plavix 75 MG 1 tablet Orally Once a day Active Cinnamon 500 MG 1 capsule Orally BID Active Allopurinol 300 MG 1 tablet Orally Daily for 90 days Active Pantoprazole Sodium 40 MG 1 tablet Orally BID for 90 days Active Zinc 50 MG 1 tablet Orally Once a day Active Calcium Active Nystatin 282615 UNIT/GM 1 application Externally daily Active Oxygen - as directed Active Ondansetron HCl 4 MG 1 tablet Orally every 8 hours Active Metoprolol Tartrate 100 MG 1 tablet with food Orally Twice a day for 90 days Active Montelukast Sodium 10 MG 1 tablet Orally QD for 30 days Active Lyrica 100 MG 1 capsule Orally Three times a day Active Meclizine HCl 25 MG 1 tablet as needed Orally every 12 hrs for 15 days 07/29/2024 Active Lisinopril 10 MG 1 tablet Orally Once a day Active Levothyroxine Sodium 175 MCG 1 tablet in the morning on an empty stomach Orally Once a day for 90 days Active Immunizations Vaccine Route Administration Date Status Comme nts Pneumococcal (Prevnar 13) Unknown 08/22/2022 Administer ed Pneumococcal (Prevnar 20) Unknown 08/22/2022 Administer ed ZOSTER (SHINGLES) VACCINE (HZV) Unknown 03/22/2019 Admi nistered Social History Tobacco Use: Social History Observation Description Date Details (start date - stop date) Never Smoker NA - NA Tobacco Control (Standard) Question Answer Notes Tobacco use: Nonsmoker AUDIT-C (Standard) Question Answer Notes Did you have a drink containing alcohol in the p ast year? No Points 0 Interpretation Negative Problems Problem Type SNOMED Code ICD Code Onset Dates Problem Status W/U Status Risk Notes Problem Intramural leiomyoma of uterus (08608354) Intramural leiomyoma of uterus (D25.1) Active confirmed Problem 57619244 Anxiety disorder , unspecified (F41.9) Active confirmed Problem Chronic sinusitis (21170437) Chronic sinusitis, unspecified (J32.9) Active confirmed Problem 090609306 Severe persisten t asthma, uncomplicated (J45.50) Active confirmed Problem Renal osteodystrophy (58312786) Renal osteodystrophy (N25.0) Active confirmed Problem Injury of lower leg (485709349) Other specified injuries of left lower leg, initial encounter (S89.82XA) Active confirmed Problem Fall () Unspecified fall , initial encounter (W19.XXXA) Active confirmed Problem Long-term current us e of 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 (884709999) 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.51) Active confirmed Problem Morbid obesity (455877879) Morbid obesity (E66.01) Active confirmed Problem Hypertension (04298305) Hypertension (I10) Active confirmed Problem Osteoarthritis (132023159) Osteoarthritis (M19.90) Active confirmed Problem Gastroesophageal reflux disease (335396010) GERD (gastroesophageal reflux disease) (K21.9) Active confirmed Problem Hypothyroidism (70093612) Hypothyroidism (E03.9) Active confirmed Problem Carpal tunnel syndrome (95962623) Carpal tunnel syndrome (G56.00) Active confirmed Problem Coronary artery disease (56293896) CAD (coronary artery disease) (I25.10) Active confirmed Problem Gout (41876871) Gout (M10.9) Active confirmed Problem Obstructive sleep apnea (38339858) Obstructive sleep apnea (G47.33) Active confirmed Problem Vitamin D deficiency (92637988) Vitamin D deficiency (E55.9) Active confirmed Problem Neuropathy (279534550) Neuropathy (G62.9) Active confirmed Problem Chronic diarrhea (767529379) Chronic diarrhea (K52.9) Active confirmed Problem Localized, primary osteoarthritis of the pelvic region and thigh (063941575) Osteoarthritis of right hip (M16.11) Active confirmed Problem Degeneration of lumbar intervertebral disc (38358415) Degenerative disc disease, lumbar (M51.36) Active confirmed Problem Dependent edema (25863891) Dependent edema (R60.9) Active confirmed Problem Atopic dermatitis (07613202) Intrinsic atopic dermatitis (L20.84) Active confirmed Problem Body mass index 40+ - severely obese (537982501) Body mass index (BMI) of 70 or greater in adult (Z68.45) Active confirmed Problem Ovarian cancer (488966557) Ovarian cancer (C56.9) Active confirmed Problem Increased immunoglobulin (545632212) Elevated IgE level (R76.8) Active confirmed Problem Lumbar radiculopathy (010551694) Chronic lumbar radiculopathy (M54.16) Active confirmed Problem Gastroesophageal reflux disease (321604566) Gastroesophageal reflux disease (K21.9) Active confirmed Problem Fibroid uterus (62423358) Fibroid uterus (D25.9) Active confirmed Problem Chronic allergic conjunctivitis (62824479) Chronic allergic conjunctivitis (H10.45) Active confirmed Problem Wound of abdomen (576669670) Wound of abdomen (S31.109A) Active confirmed Problem Long-term current us e of drug therapy (232019710) Encounter for long-term (current) use of medications (Z79.899) Active confirmed Problem Type II diabetes mellitus well controlled (224317205) Diabetes mellitus type 2, controlled (E11.9) Active confirmed Problem Hypercholesterolemia (12415094) Hypercholesterolemia (E78.00) Active confirmed Problem Allergic rhinitis (78649280) Chronic nonseasonal allergic rhinitis due to other allergen (J30.89) Active confirmed Problem Lumbar spinal stenosis (28570197) Lumbar stenosis (M48.061) Active confirmed Problem Chronic kidney disease due to hypertension (900035830890081) Benign hypertensive kidney disease with chronic kidney disease stage I through stage IV, or unspecified (I12.9) Active confirmed Problem 572418101 Body mass index [BMI] 45.0-49.9, adult (Z68.42) Active confirmed Problem Peripheral eosinophilia (D72.19) Active confirmed Problem Chronic kidney disease stage 3 (disorder) (837439101) Chronic kidney disease (CKD), stage III (moderate) (N18.30) Active confirmed Vital Signs Heart Rate 94 /min 10/21/2024 Temperature 98.8 degrees Fahrenheit 10/21/2024 Oximetry 91 % 10/21/2024 Blood pressure diastolic 60 mm Hg 10/21/2024 Height 63 in 10/21/2024 Blood pressure systolic 150 mm Hg 10/21/2024 Weight 265.6 lbs 10/21/2024 BMI 47.04 kg/m2 10/21/2024 Encounters Encounter Location Date Provider Diagnosis [address] [address] 07/29/2024 Ann Fournier Vertigo R42 ; Low BP I95.9 and Fall W19.XXXA [facility] [address] [place] [address] 11/19/2023 SEA HOY Acute non-recurrent sinusitis, unspecified location J01.90 and Nasal congestion R09.[address] [address] 12/23/2023 Ann Fournier Muscle strain T14.8X XA [address] [address] 01/12/2024 Ann Fournier Eschar R23.[address] [address] 06/29/2024 Ann Fournier Acute sinusitis J01. [address] [address] 07/14/2024 Levy Hoy Severe persistent asthma, uncomplicated J45.50 ; Morbid obesity E66.01 ; Diabetes mellitus type 2, controlled E11.9 ; Unspecified fall, initial encounter W19.XXXA and Acute bronchitis, unspecified organism J20.9 [facility] [address] [facility] [place] [address] 10/21/2024 Ann Fournier Pneumonia J18.9 [facility] [address] [facility] [place] [address] 09/07/2024 Ann Fournier Night sweats R61 and Abdominal pain R10.9 [facility] [address] [facility] [place] [address] 10/28/2023 ANN FOURNIER [facility] [address] [facility] [place] [address] 12/17/2023 Ann Fournier [facility] [address] [facility] [place] [address] 01/12/2024 Ann Fournier Eschar R23.4 [facility] [address] [facility] [place] [address] 01/13/2024 Ann Fournier [facility] [address] [facility] [place] [address] 01/22/2024 Ann Fournier [facility] [address] [facility] [place] [address] 03/16/2024 Ann Fournier Abdominal abscess K6 5.1 [facility] [address] [facility] [place] [place] [address] 03/17/2024 Ann Fournier [facility] [address] [facility] [place] [address] 03/23/2024 Cayden Viveros [facility] [address] [facility] [place] [address] 03/25/2024 Ann Fournier [facility] [address] [facility] [place] [address] 05/10/2024 Ann Fournier [facility] [address] [facility] [place] [address] 07/14/2024 Ann Fournier Severe persistent asthma, uncomplicated J45.50 [facility] [address] [facility] [place] [address] 07/29/2024 Ann Fournier [facility] [address] [facility] [place] [address] 08/11/2024 Ann Fournier [facility] [address] [facility] [place] [address] 08/16/2024 Ann Fournier [facility] [address] [facility] [place] [address] 09/01/2024 Levy Sen [facility] [address] [facility] [place] [address] 09/05/2024 Ann Fournier [facility] [address] [facility] [place] [address] 09/07/2024 nAn Fournier [facility] [address] [facility] [place] [address] 09/08/2024 Ann Fournier Wound of abdomen S31.109A [facility] [address] [facility] [place] [address] 09/23/2024 Ann Fournier [facility] [address] [facility] [place] [address] 09/23/2024 Ann Fournier [facility] [address] [facility] [place] [address] 09/29/2024 Caydenmariam Mendoza Severe persistent asthma, uncomplicated J45.50 ; Acute sinusitis J01.90 and Eschar R23.4 [facility] [address] [facility] [place] [address] 10/06/2024 Cayden Viveros [facility] [address] [facility] [place] [address] 10/12/2024 Ann Fournier Assessments Encounter Date Diagnosis (ICD Code) Assessment Notes Treatment Notes Treatment Clinical Notes Section Notes 12/23/2023 Muscle strain (ICD-10 - T14.8XXA) continue with ice, creams, flexeril at HS prn fu if not improving 01/12/2024 Eschar (ICD-10 - R23.4) referral Dr Sanchez close monitoring to ER if worsens 06/29/2024 Acute sinusitis (ICD-10 - J01.90) fu if not improving 07/14/2024 Severe persistent asthma, uncomplicated (ICD-10 - J45.50) 07/14/2024 Morbid obesity (ICD-10 - E66.01) 11/19/2023 Acute non-recurrent sinusitis, unspecified location (ICD-10 - J01.90) ifnot better friday 0-calling back 0- u/s neck and CBC, chemr 14 07/29/2024 Vertigo (ICD-10 - R42) 07/29/2024 Low BP (ICD-10 - I95.9) increase fluids monitor over weekend, report Friday to ER if needed, feeling worse 09/07/2024 Night sweats (ICD-10 - R61) continue to monitor no fever check BS 09/07/2024 Abdominal pain (ICD-10 - R10.9) repeat CT? 10/21/2024 Pneumonia (ICD-10 - J18.9) home for 9 days feeling progressively worse oxygen 91% on 2L to ER for eval, notified 01/12/2024 Eschar (ICD-10 - R23.4) 03/16/2024 Abdominal abscess (ICD-10 - K65.1) 07/14/2024 Severe persistent asthma, uncomplicated (ICD-10 - J45.50) 09/08/2024 Wound of abdomen (ICD-10 - S31.109A) 09/29/2024 Severe persistent asthma, uncomplicated (ICD-10 - J45.50) 09/29/2024 Acute sinusitis (ICD-10 - J01.90) 07/29/2024 Fall (ICD-10 - W19.XXXA) 11/19/2023 Nasal congestion (ICD-10 - R09.81) 07/14/2024 Diabetes mellitus type 2, controlled (ICD-10 - E11.9) 07/14/2024 Unspecified fall, initial encounter (ICD-10 - W19.XXXA) 09/29/2024 Eschar (ICD-10 - R23.4) 07/14/2024 Acute bronchitis, unspecified organism (ICD-10 - J20.9) Rest and drink more liquids, especially water. You may use a humidifier or vaporizer to help keep the drainage moist. Orlg-dln-hrcjdjr Nasal Saline may help the stuffy and runny nose. Use Ibuprofen and or Tylenol as needed for fever, chills, body aches or pain. Children 5 years old should not be given rhah-upj-gewlxhm cough and cold medications such as guaifenesin and dextromethorphan. If you're over age 5, you may try bvoc-onl-wrglyip cold medications such as guaifenesin and dextromethorphan, or multi-symptom cold reliever such as Dayquil to help reduce the symptoms. Antibiotics have been prescribed. You should take these until completed and follow the directions. Antibiotics can sometimes cause upset stomach, and in rare cases, serious allergic reactions or serious gastrointestinal problems. If you start having severe abdominal pain, severe vomiting, or bloody diarrhea, you should be reevaluated by your physician or urgent care immediately. Follow up with your Primary Care Provider or return to clinic if symptoms do not improve within 3-5 days. If you develop severe symptoms such as shortness of breath, repeated vomiting, coughing up blood, or chest pain you should go to the emergency room or call 911 Plan Of Treatment Pending Test Test Name Order Date CMP (COMPLETE METABOLIC PANEL) 4 HEMOGLOBIN A1C (GLYCO) 09/07/2024 IRON, TOTAL 09/07/2024 LIPID PANEL (CHOL/TRIG/HDL/LDL) 09/08/19 25 CBC WITH DIFF 01/12/2024 VITAMIN D, 25 LEVEL (TOTAL) 09/07/2024 XR Clavicle LT (2 views) * 10/20/2023 XR Ribs Unilateral LT 06/17/2023 XR Shoulder LT * 10/20/2023 SED RATE and CRP 01/12/2024 Insulin Level 09/07/2024 INFLUENZA A and B, NASAL/NASOPHARYNGEAL (PCR) 05/27/2023 SARS COVID-2 NASAL - PCR 05/27/2023 CT HEAD WO CON 07/29/2024 XR SHOULDER RT 2V or > 07/29/2024 THYROID PANEL (T4/TSH/FREE T3) 5 THYROID PANEL (T4/TSH/FREE T3) 3 CMP (COMP MET AMES) w/eGFR CKD-EPI 2024 CBC WITH DIFF 09/07/2024 Insurance Providers Payer Name Payer Address Payer Phone Subscriber Number Group Number Insured Name Patient Relationship to Insured Coverage Start Date Coverage End Date [employer] ADV PLAN [address] [place] [address] [id number] [facility] [id number] Mary Jane Moran Self - patient is the insured 8 MEDICAID [place] 2ND INS [address] [place], [place] [id number] [phone] [id number] Mary Jane Moran Self - patient is the insured Medications Administered Medication Instructions Date of Administration Dosage Notes Dupixent 08/07/2022 600 mg Medical (General) History Medical History History ICD Code Obstructive sleep apnea G47.33 Peripheral eosinophilia D72.19 Elevated IgE level R76.8 Chronic nonseasonal allergic rhinitis du e to other allergen J30.89 Diabetes mellitus type 2, controlled E11 .9 Gastroesophageal reflux disease K21.9 Hypercholesterolemia E78.00 Hypothyroidism E03.9 Obstructive sleep apnea G47.33 Intramural leiomyoma of uterus D25.1 Intrinsic atopic dermatitis L20.84 Morbid obesity E66.01 USP (current) use of inhaled stero ids Z79.51 Osteoarthritis of right hip M16.11 Ovarian cancer C56.9 Wound check, abscess Z51.89 CAD (coronary artery disease) I25.10 Fibroid uterus D25.9 Sciatica, right M54.31 Chronic allergic conjunctivitis H10.45 Vitamin D deficiency E55.9 Renal osteodystrophy N25.0 Benign hypertensive kidney d isease with chronic kidney disease stage I through stage IV, or unspecified I12.9 Chronic kidney disease (CKD), stage III (moderate) N18.30 Body mass index (BMI) of 70 or greater i n adult Z68.45 Carpal tunnel syndrome G56.00 Chronic diarrhea K52.9 Gout M10.9 Neuropathy G62.9 Degenerative disc disease, lumbar M51.36 Dependent edema R60.9 Chronic sinusitis, unspecified J32.9 Osteoarthritis M19.90 Hypertension I10 GERD (gastroesophageal reflux disease) K 21.9 Surgical History Surgery Date(Month/Year) EGD 09/03/2023 Toe Surgery-Right 10/2022 Right TKA 07/2012 Tonsillectomy 01/1972 Right shoulder repair 09/2008 Right rotator cuff 12/2001 Nasal bone spur repair 08/2011 Hysterectomy 12/05/2020 Herniated disk repair 08/2011 Cholecystectomy 12/2000 Right & left heart catheterization 03/21 08 Right knee arthroscopy 04/2000 Right knee arthroscopy 05/1988 Appendectomy 03/2011 Hospitalization History Reason Date(Month/Year) pneumonia 10/24
--- OUTSIDE RECORDS SUMMARY | 2024-10-21 14:57 | XMS_ITS | Clinical Summary ---
Author Organization [facility] Address [address] [place] [address] Phone Care Team Providers Care Clinical Operations Leader Name Role Phone Unavailable Primary Care Provider Unavailabl e Social History Tobacco Use Types Packs/Day Years Used Date Smoking Tobacco: Never Assessed Comments Unknown Sex and Gender Information Value Date Recorded Sex Assigned at Not on file Legal Sex Female 12:57 PM EST Gender Identity Not on file Sexual Orientation Not on file Plan of Treatment Not on file
--- NOTE | 2024-10-21 15:06 | XR_ITS ---
[facility] [place] [id number] Patient Name: MARY JANE SANTOS MRN: [id number] date: 1970 Sex: F Assigned Patient Location: ED.MAIN Current Patient Location: ED.MAIN Accession/Order Number: [id number] Exam Date: 10/21/2024 15:41 Report Date: 10/21/2024 15:42 At the request of: MAIA REYES MD Procedure: XR chest 1V XR chest 1V 10/21/2024 3:18 PM SIGNS AND SYMPTOMS: Chest pain, shortness of breath PROTOCOL: Frontal radiograph of the chest COMPARISON: 10/06/2024 FINDINGS: The trachea is midline. The heart and mediastinal structures are within normal limits. Airspace opacity is slightly worse at the left lung base with an accompanying small left-sided pleural effusion. The present in the thoracic spine. The bony thorax is intact. XR/XR chest 1V IMPRESSION: Airspace opacity is slightly worse at the left lung base with an accompanying small left-sided pleural effusion. Impression dictated by: Donald De Souza M.D. 10/21/2024 3:42 PM Dictation Location: [place] [address] Electronically authenticated by: [id number] Y Date: 10/21/2024 15:42
--- NOTE | 2024-10-21 15:06 | ECG_ITS ---
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
--- NOTE | 2024-10-21 15:07 | ED.GENADUL1 ---
HPI HPI - General Adult General Chief complaint: Shortness of Breath/Dyspnea Stated complaint: CHEST PAINS SOB Time Seen by Provider: 10/21/24 14:53 Source: patient Mode of arrival: Wheelchair History of Present Illness HPI narrative: 54-year-old female presents to the emergency department for chest pain shortness of breath and cough. She had been seen here on October 06 and that time had pneumonia but also had elevated troponin and was transferred to [facility]. She states she stayed there for 5 days and they sent her home on 2 more days of antibiotics which she has now finished, about 8 days ago. She for the past 2 days has had similar pains in her chest as well as a cough. She saw her PCP today who told her to come here. Related Data Home Medications ?Medication ?Instructions ?Recorded ?Confirmed Lactobacillus acidophilus 100 mg PO DAILY 08/26/23 10/06/24 albuterol 90 mcg/actuation aerosol 90 mcg inhalation .every 4 hours 08/26/23 10/06/24 inhaler PRN shortness of breath allopurinol 300 mg tablet 300 mg PO DAILY 08/26/23 10/06/24 ascorbic acid (vitamin C) 250 mg 250 mg PO DAILY 08/26/23 10/06/24 chewable tablet biotin 5,000 mcg disintegrating 10,000 mcg PO DAILY 08/26/23 10/06/24 tablet budesonide-formoterol HFA 80 1 puff inhalation BID 08/26/23 10/06/24 mcg-4.5 mcg/actuation aerosol inhaler (Symbicort) cyclobenzaprine 10 mg tablet 10 mg PO QPM 08/26/23 10/06/24 dulaglutide 4.5 mg/0.5 mL 4.5 mg subcut QWEEK 08/26/23 10/21/24 subcutaneous pen injector (Trulicity) fenofibrate 160 mg tablet 160 mg PO DAILY 08/26/23 10/21/24 fluticasone propionate 50 1 spray intranasal DAILY PRN nasal 08/26/23 10/21/24 mcg/actuation nasal congestion spray,suspension (Flonase Allergy Relief) furosemide 40 mg tablet 40 mg PO DAILY 08/26/23 10/06/24 insulin regular hum U-500 conc 500 150 unit subcut QAM 08/26/23 10/21/24 unit/mL subcutaneous soln (Humulin R U-500 (Concentrated) Insulin) insulin regular hum U-500 conc 500 150 unit subcut QNOON 08/26/23 10/21/24 unit/mL subcutaneous soln (Humulin R U-500 (Concentrated) Insulin) insulin regular hum U-500 conc 500 150 unit subcut QPM 08/26/23 10/21/24 unit/mL subcutaneous soln (Humulin R U-500 (Concentrated) Insulin) inulin 2 gram chewable tablet 2 g PO DAILY 08/26/23 09/03/23 (Fiber Gummies) levothyroxine 175 mcg capsule 150 mcg PO DAILY 08/26/23 10/21/24 montelukast 10 mg tablet 10 mg PO DAILY 08/26/23 10/21/24 nystatin 100,000 unit/gram topical 1 applic topical DAILY PRN rash 08/26/23 10/21/24 cream pantoprazole 40 mg tablet,delayed 40 mg PO BID 08/26/23 10/21/24 release (Protonix) tiotropium bromide 1.25 2 inh inhalation DAILY 08/26/23 10/06/24 mcg/actuation mist for inhalation famotidine 40 mg tablet (Pepcid) 40 mg PO DAILY 08/27/23 10/06/24 clopidogrel 75 mg tablet 75 mg PO DAILY 10/06/24 10/21/24 lisinopril 10 mg tablet 10 mg PO DAILY 10/06/24 10/21/24 pregabalin 100 mg capsule (Lyrica) 100 mg PO TID 10/06/24 10/21/24 rosuvastatin 20 mg tablet 20 mg PO DAILY 10/06/24 10/06/24 evolocumab 140 mg/mL subcutaneous 140 mg subcut .Q2WKS 10/21/24 10/21/24 pen injector (Repatha SureClick) insulin pump cart,cont inf,BT 10/21/24 10/21/24 (Omnipod Dash Pods (Gen 4) subcutaneous cartridge) metoprolol tartrate 100 mg tablet 100 mg PO BID 10/21/24 10/21/24 Previous Rx's ?Medication ?Instructions ?Recorded acetaminophen 300 mg-codeine 30 mg 1 tab PO Q6H PRN pain 5 days #20 12/26/23 tablet tabs Allergies Allergy/AdvReac Type Severity Reaction Status Date / Time azithromycin Allergy Severe Hives Verified 10/06/24 12:35 cephalexin Allergy Severe Hives Verified 10/06/24 12:35 ciprofloxacin Allergy Severe Hives Verified 10/06/24 12:35 doxycycline Allergy Severe Hives Verified 10/21/24 15:00 Penicillins Allergy Severe Anaphylaxis Verified 10/06/24 12:35 sulfamethoxazole Allergy Severe Anaphylaxis Verified 10/06/24 12:35 sulfanilamide Allergy Severe Anaphylaxis Verified 10/06/24 12:35 trimethoprim Allergy Severe Anaphylaxis Verified 10/06/24 12:35 acetaminophen (From Percocet) AdvReac Severe Vomiting Verified 10/06/24 12:35 aspirin AdvReac Severe Vomiting Verified 10/06/24 12:35 cefprozil (From Cefzil) AdvReac Severe Hives Verified 10/06/24 12:35 moxifloxacin (From Avelox) AdvReac Severe Hives Verified 10/06/24 12:35 oxycodone (From Percocet) AdvReac Severe Vomiting Verified 10/06/24 12:35 Opioid HPI Opioid Management Most Recent Opioid Data: Last Pain Scale 10 01/18/24, 13:10 Review of Systems ROS Narrative A ten point review of systems is negative except as noted above. [facility] Medical History (Updated 10/21/24 @ 16:10 by Brian Cota MD) Fall ?W19.XXXA - Unspecified fall, initial encounter (ICD-10) Concussion ?S06.0XAA - Concussion with loss of consciousness status unknown, initial encounter (ICD-10) Obesity ?E66.9 - Obesity, unspecified (ICD-10) Delayed recovery from anesthesia Postoperative nausea and vomiting ?R11.2 - Nausea with vomiting, unspecified (ICD-10) ?Z98.890 - Other specified postprocedural states (ICD-10) Dysphagia ?R13.10 - Dysphagia, unspecified (ICD-10) Ovarian cancer ?C56.9 - Malignant neoplasm of unspecified ovary (ICD-10) Osteoarthritis ?M19.90 - Unspecified osteoarthritis, unspecified site (ICD-10) Nerve damage of right foot ?G57.91 - Unspecified mononeuropathy of right lower limb (ICD-10) Nerve damage of left foot ?G57.92 - Unspecified mononeuropathy of left lower limb (ICD-10) Hypothyroidism ?E03.9 - Hypothyroidism, unspecified (ICD-10) Hypertension ?I10 - Essential (primary) hypertension (ICD-10) High cholesterol ?E78.00 - Pure hypercholesterolemia, unspecified (ICD-10) Herniation of right side of L4-L5 intervertebral disc ?M51.26 - Other intervertebral disc displacement, lumbar region (ICD-10) GI problem ?R19.8 - Other specified symptoms and signs involving the digestive system and abdomen (ICD-10) Diabetes 1.5, managed as type 2 ?E13.9 - Other specified diabetes mellitus without complications (ICD-10) Asthma ?J45.909 - Unspecified asthma, uncomplicated (ICD-10) Anemia ?D64.9 - Anemia, unspecified (ICD-10) Surgical History H/O: hysterectomy ?Z90.710 - Acquired absence of both cervix and uterus (ICD-10) Hx of tonsillectomy ?Z90.89 - Acquired absence of other organs (ICD-10) Total knee replacement status ?Z96.659 - Presence of unspecified artificial knee joint (ICD-10) S/P surgery on nasal septum ?Z98.890 - Other specified postprocedural states (ICD-10) History of arthroscopic knee surgery ?Z98.890 - Other specified postprocedural states (ICD-10) History of discectomy ?Z98.890 - Other specified postprocedural states (ICD-10) History of cholecystectomy ?Z90.49 - Acquired absence of other specified parts of digestive tract (ICD-10) History of appendectomy ?Z90.49 - Acquired absence of other specified parts of digestive tract (ICD-10) Family History (Updated 08/27/23 @ 13:[address], RIGOBERTO) Mother Arthritis Asthma Family history of hypertension Hyperlipidemia Family history of stroke Father Arthritis Family history of diabetes mellitus Family history of hypertension Alzheimer's disease Other Family history of cancer Social History (Updated 08/27/23 @ 13:[address], RIGOBERTO) Within the past year, how often did you have a drink containing alcohol: never Score interpretation: A score less than 3 is consistent with normal alcohol consumption. Smoking status: Never smoker Second hand tobacco smoke exposure: No Non-prescribed substance use: denies use Previous occupational history: disability Highest level of school completed/degree received: some college, no degree Little interest or pleasure in doing things: not at all Feeling down, depressed, or hopeless: not at all Exam Narrative Exam Narrative: Nurses note and vital signs reviewed and patient is not hypoxic. General: The patient appears in no apparent distress. Skin: Warm, dry, no pallor noted. There is no rash noted. Head: Normocephalic, atraumatic Eye: Normal conjunctiva, no drainage Ears, Nose, Mouth, and Throat: oral mucosa is moist. Nares patent. Cardiovascular: Regular Rate and Rhythm, not tachycardic Respiratory: Appears to have mild dyspnea. Breath sounds are equal and no rales or rhonchi are noted Back: non-tender GI: Soft and nontender Musculoskeletal: The patient has no evidence of calf tenderness, no pitting edema, symmetrical pulses noted bilaterally Neurological: A&O, normal speech Psychiatric: Cooperative Constitutional Vital Signs, click to edit/add: Last Vital Signs Temp 98.4 F 10/21/24 14:53 Pulse 88 10/21/24 14:53 Resp 26 H 10/21/24 14:53 BP 181/67 H 10/21/24 14:53 Pulse Ox 96 10/21/24 14:53 O2 Del Method Nasal Cannula 10/21/24 14:53 O2 Flow Rate 2 10/21/24 14:53 Course Vital Signs Vital signs: Vital Signs Temperature 98.4 F 10/21/24 14:53 Pulse Rate 88 10/21/24 14:53 Respiratory Rate 26 H 10/21/24 14:53 Blood Pressure 181/67 H 10/21/24 14:53 Pulse Oximetry 96 10/21/24 14:53 Oxygen Delivery Method Nasal Cannula 10/21/24 14:53 Oxygen Delivery Flow Rate 2 10/21/24 14:53 Temperature 98.4 F 10/21/24 14:53 Pulse Rate 88 10/21/24 14:53 Respiratory Rate 26 H 10/21/24 14:53 Blood Pressure 181/67 H 10/21/24 14:53 Pulse Oximetry 96 10/21/24 14:53 Oxygen Delivery Method Nasal Cannula 10/21/24 14:53 Oxygen Delivery Flow Rate 2 10/21/24 14:53 Medical Decision Making MDM Narrative Medical decision making narrative: Today's troponin is negative. Chest x-ray shows left lower lobe infiltrate with pleural effusion. She has failed outpatient therapy. She had finished a course of doxycycline. She is fatigued and short of breath. When she was discharged from [facility] 10 days ago she was sent home on oxygen and has been on 2 L nasal cannula since then. She will be admitted. Blood cultures were obtained and lactic acid level is pending. She has been given IV antibiotic. Treatment diagnosis and disposition were discussed with the patient. The patient states there are only 3 antibiotics that she can take: Doxycycline, clindamycin, and vancomycin. She was recently on doxycycline and we would like to avoid vancomycin so she is being given IV clindamycin here. Case discussed with Dr. Chatterjee. Differential Diagnosis Differential Diagnosis: Pneumonia, pleural effusion, myocardial infarction Lab Data Lab results reviewed: Yes I reviewed the patient's lab results Labs: Lab Results 10/21/24 10/21/24 Range/Units 15:20 15:54 WBC 6.4 (4.0-11.0) 10^3/uL RBC 2.93 L (4.20-5.40) 10^6/uL Hgb 9.2 L (12.0-16.0) g/dL Hct 28.5 L (36.0-48.0) % MCV 97.3 (81.0-99.0) fL MCH 31.4 (26.7-34.0) pg MCHC 32.3 (29.9-35.2) g/dL RDW 14.4 (11.0-15.0) % Plt Count 187 (150-450) 10^3/uL MPV 12.6 (9.5-13.5) fL Neut % (Auto) 77.3 H (43.0-75.0) % Lymph % (Auto) 13.2 L (20.5-60.0) % [place] % (Auto) 6.3 (1.7-12.0) % Eos % (Auto) 2.2 (0.9-7.0) % Baso % (Auto) 0.5 (0.2-2.0) % Neut # (Auto) 4.9 (1.4-6.5) 10^3/uL Lymph # (Auto) 0.8 L (1.2-3.8) 10^3/uL [place] # (Auto) 0.4 (0.3-0.8) 10^3/uL Eos # (Auto) 0.1 (0.0-0.7) 10^3/uL Baso # (Auto) 0.0 (0.0-0.1) 10^3/uL Abs Immat Gran (auto) 0.03 (0.00-0.03) 10^3/uL Imm/Tot Granulo (auto) 0.5 (0.0-0.5) % Sodium 136 (136-145) mmol/L Potassium 5.3 H (3.5-5.1) mmol/L Chloride 105 (98-107) mmol/L Carbon Dioxide 22.5 (21.0-32.0) mmol/L Anion Gap 13.8 BUN 32.0 H (7.0-18.0) mg/dL Creatinine 1.44 H (0.55-1.02) mg/dL Est GFR ( Amer) 46 L (>=60 mL/min/1.73m^2) Est GFR (Non-Af Amer) 38 L (>=60 mL/min/1.73m^2) BUN/Creatinine Ratio 22.2 Glucose 433 H (74-106) mg/dL Calcium 9.7 (8.5-10.1) mg/dL Troponin I High Sens 6.1 (4.0-51.3) pg/mL NT-Pro-B Natriuret Pep 1610.0 H* (<=900.0) pg/mL Imaging Data Chest x-ray: Radiologist's impression: ITS Impressions Chest X-Ray 10/21/24 15:06 IMPRESSION: Airspace opacity is slightly worse at the left lung base with an accompanying small left-sided pleural effusion. Impression dictated by: Donald De Souza M.D. 10/21/2024 3:42 PM Dictation Location: [place] [address] Electronically authenticated by: [id number] Y Date: 10/21/2024 15:42 ECG Data Attestation: I personally reviewed and interpreted this ECG as follows: (EKG on my interpretation shows normal sinus rhythm with a rate of 87 and no acute change) Discharge Plan Discharge Chief Complaint: Shortness of Breath/Dyspnea Clinical Impression: Left lower lobe pneumonia Patient Disposition: Admitted as Observation Time of Disposition Decision: 16:10 Condition: Fair
[2024-10-21 15:30] LABS: Basophils Percent Auto 0.5 % (0.2-2.0); Eosinophils Absolute Auto 0.1 10^3/uL (0.0-0.7); Eosinophils Percent Auto 2.2 % (0.9-7.0); Hematocrit 28.5 % (36.0-48.0); Hemoglobin 9.2 g/dL (12.0-16.0); Immature Granulocytes Abs Auto 0.03 10^3/uL (0.00-0.03); Immature Granulocytes Pct Auto 0.5 % (0.0-0.5); Lymphocytes Absolute Auto 0.8 10^3/uL (1.2-3.8); Lymphocytes Percent Auto 13.2 % (20.5-60.0); Mean Corpuscular HGB Conc 32.3 g/dL (29.9-35.2); Mean Corpuscular Hemoglobin 31.4 pg (26.7-34.0); Mean Corpuscular Volume 97.3 fL (81.0-99.0); Mean Platelet Volume 12.6 fL (9.5-13.5); Monocytes Absolute Auto 0.4 10^3/uL (0.3-0.8); Monocytes Percent Auto 6.3 % (1.7-12.0); Neutrophils Absolute Auto 4.9 10^3/uL (1.4-6.5); Neutrophils Percent Auto 77.3 % (43.0-75.0); Platelet Count 187 10^3/uL (150-450); Red Blood Count 2.93 10^6/uL (4.20-5.40); Red Cell Distribution Width 14.4 % (11.0-15.0); White Blood Count 6.4 10^3/uL (4.0-11.0)
[2024-10-21 15:49] LABS: Troponin I High Sensitivity 6.1 pg/mL (4.0-51.3)
[2024-10-21 16:06] LABS: Potassium 5.3 mmol/L (3.5-5.1); Sodium 136 mmol/L (136-145)
[2024-10-21 16:07] LABS: Anion Gap 13.8; BUN Creatinine Ratio 22.2; Calcium 9.7 mg/dL (8.5-10.1); Carbon Dioxide 22.5 mmol/L (21.0-32.0); Chloride 105 mmol/L (98-107); Estimated GFR (African America 46 (>=60 mL/min/1.73m^2); Estimated GFR (Non-African Ame 38 (>=60 mL/min/1.73m^2); Glucose 433 mg/dL (74-106)
[2024-10-21] MEDS: CLINDAMYCIN PHOSPHATE/D5W 900 MG/50 ML PREMIX 100 MG IV (16:29)
[2024-10-21 16:30] LABS: Lactate/Lactic Acid 1.4 mmol/L (0.4-2.0)
--- NOTE | 2024-10-21 18:37 | P.HP_ITS ---
HPI H&P: HPI History of Present Illness Chief complaint: LOWER (L0) LOBE PNEUMONIA Narrative: Patient presented management increasing cough and shortness of breath she has had a recent stay at an outside facility for workup for acute NSTEMI from a pneumonia. Went home on doxycycline. Receiving a total of 7 days. Over the last several days increasing cough and shortness of breath, in the emergency room and have left lower lobe pneumonia with left pleural effusion, some mild elevation in BNP but much improved from her previous ER visit that required her transferred for acute NSTEMI. When I saw patient up on the medical surgical floor, resting fairly comfortably in bed, maybe some mild conversational dyspnea cough during the evaluation she does get some chest pain but it is with the cough Opioid HPI Opioid Management Most Recent Pain and Opioid Data: Last Pain Scale 10 01/18/24, 13:10 Last ORT Total Score 3 Today, 17:13 Last ORT Risk Category Low Risk Today, 17:13 PFSH PFS Medical History Fall ?W19.XXXA - Unspecified fall, initial encounter (ICD-10) Concussion ?S06.0XAA - Concussion with loss of consciousness status unknown, initial encounter (ICD-10) Obesity ?E66.9 - Obesity, unspecified (ICD-10) Delayed recovery from anesthesia Postoperative nausea and vomiting ?R11.2 - Nausea with vomiting, unspecified (ICD-10) ?Z98.890 - Other specified postprocedural states (ICD-10) Dysphagia ?R13.10 - Dysphagia, unspecified (ICD-10) Ovarian cancer ?C56.9 - Malignant neoplasm of unspecified ovary (ICD-10) Osteoarthritis ?M19.90 - Unspecified osteoarthritis, unspecified site (ICD-10) Nerve damage of right foot ?G57.91 - Unspecified mononeuropathy of right lower limb (ICD-10) Nerve damage of left foot ?G57.92 - Unspecified mononeuropathy of left lower limb (ICD-10) Hypothyroidism ?E03.9 - Hypothyroidism, unspecified (ICD-10) Hypertension ?I10 - Essential (primary) hypertension (ICD-10) High cholesterol ?E78.00 - Pure hypercholesterolemia, unspecified (ICD-10) Herniation of right side of L4-L5 intervertebral disc ?M51.26 - Other intervertebral disc displacement, lumbar region (ICD-10) GI problem ?R19.8 - Other specified symptoms and signs involving the digestive system and abdomen (ICD-10) Diabetes 1.5, managed as type 2 ?E13.9 - Other specified diabetes mellitus without complications (ICD-10) Asthma ?J45.909 - Unspecified asthma, uncomplicated (ICD-10) Anemia ?D64.9 - Anemia, unspecified (ICD-10) Surgical History H/O: hysterectomy ?Z90.710 - Acquired absence of both cervix and uterus (ICD-10) Hx of tonsillectomy ?Z90.89 - Acquired absence of other organs (ICD-10) Total knee replacement status ?Z96.659 - Presence of unspecified artificial knee joint (ICD-10) S/P surgery on nasal septum ?Z98.890 - Other specified postprocedural states (ICD-10) History of arthroscopic knee surgery ?Z98.890 - Other specified postprocedural states (ICD-10) History of discectomy ?Z98.890 - Other specified postprocedural states (ICD-10) History of cholecystectomy ?Z90.49 - Acquired absence of other specified parts of digestive tract (ICD- 10) History of appendectomy ?Z90.49 - Acquired absence of other specified parts of digestive tract (ICD- 10) Family History (Updated 08/27/23 @ 13:[address] RN) Mother Arthritis Asthma Family history of hypertension Hyperlipidemia Family history of stroke Father Arthritis Family history of diabetes mellitus Family history of hypertension Alzheimer's disease Other Family history of cancer Social History (Updated 08/27/23 @ 13:[address], RIGOBERTO) Within the past year, how often did you have a drink containing alcohol: never Score interpretation: A score less than 3 is consistent with normal alcohol consumption. Smoking status: Never smoker Second hand tobacco smoke exposure: No Non-prescribed substance use: denies use Previous occupational history: disability Highest level of school completed/degree received: high school graduate Little interest or pleasure in doing things: not at all Feeling down, depressed, or hopeless: not at all Meds Home Medications and Allergies Home Medications ?Medication ?Instructions ?Recorded ?Confirmed ?Type Lactobacillus acidophilus 100 mg PO DAILY 08/26/2312/24 History albuterol 90 mcg/actuation aerosol 90 mcg inhalation . every 4 hours 08/26/23 10/06/24 History inhaler PRN shortness of breath allopurinol 300 mg tablet 300 mg PO DAILY 08/26/2312/24 History ascorbic acid (vitamin C) 250 mg 250 mg PO DAILY 08/2510/06/24 History chewable tablet biotin 5,000 mcg disintegrating 10,000 mcg PO DAILY 10/06/24 History tablet budesonide-formoterol HFA 80 1 puff inhalation BID 10/06/24 History mcg-4.5 mcg/actuation aerosol inhaler (Symbicort) cyclobenzaprine 10 mg tablet 10 mg PO QPM 08/26/2312/24 History dulaglutide 4.5 mg/0.5 mL 4.5 mg subcut QWEEK 08/26/23 10/21/24 History subcutaneous pen injector (Trulicity) fenofibrate 160 mg tablet 160 mg PO DAILY 08/26/23 History fluticasone propionate 50 1 spray intranasal DAILY PRN nasal 08/26/23 10/21/24 History mcg/actuation nasal congestion spray,suspension (Flonase Allergy Relief) furosemide 40 mg tablet 40 mg PO DAILY 08/26/2312/24 History insulin regular hum U-500 conc 500 150 unit subcut QAM 08/26/23 10/21/24 History unit/mL subcutaneous soln (Humulin R U-500 (Concentrated) Insulin) insulin regular hum U-500 conc 500 150 unit subcut QNO ON 08/26/23 10/21/24 History unit/mL subcutaneous soln (Humulin R U-500 (Concentrated) Insulin) insulin regular hum U-500 conc 500 150 unit subcut QPM 08/26/23 10/21/24 History unit/mL subcutaneous soln (Humulin R U-500 (Concentrated) Insulin) inulin 2 gram chewable tablet 2 g PO DAILY 08/26/23 History (Fiber Gummies) levothyroxine 175 mcg capsule 150 mcg PO DAILY 4 10/21/24 History montelukast 10 mg tablet 10 mg PO DAILY 08/26/2310/01 History nystatin 100,000 unit/gram topical 1 applic topical DA LATRICE PRN rash 08/26/23 10/21/24 History cream pantoprazole 40 mg tablet,delayed 40 mg PO BID 4 10/21/24 History release (Protonix) tiotropium bromide 1.25 2 inh inhalation DAILY 08/2510/06/24 History mcg/actuation mist for inhalation famotidine 40 mg tablet (Pepcid) 40 mg PO DAILY 10/06/24 History acetaminophen 300 mg-codeine 30 mg 1 tab PO Q6H PRN pa in 5 days #20 12/26/23 10/06/24 Rx tablet tabs clopidogrel 75 mg tablet 75 mg PO DAILY 10/06/2410/01 History lisinopril 10 mg tablet 10 mg PO DAILY 10/06/2410/01 History pregabalin 100 mg capsule (Lyrica) 100 mg PO TID 10/0610/21/24 History rosuvastatin 20 mg tablet 20 mg PO DAILY 10/06/2412/24 History evolocumab 140 mg/mL subcutaneous 140 mg subcut .Q2WKS 10/21/24 10/21/24 History pen injector (Repatha SureClick) insulin pump cart,cont inf,BT 10/21/24 10/21/24 Histo ry (Omnipod Dash Pods (Gen 4) subcutaneous cartridge) metoprolol tartrate 100 mg tablet 100 mg PO BID 10/21/24 History Allergies Allergy/AdvReac Type Severity Reaction Status Date / Time azithromycin Allergy Severe Hives Verified 10/06/24 12:35 cephalexin Allergy Severe Hives Verified 10/06/24 12:35 ciprofloxacin Allergy Severe Hives Verified 10/06/24 12:35 doxycycline Allergy Severe Hives Verified 10/21/24 15:00 Penicillins Allergy Severe Anaphylaxis Verified 10/06/24 12:35 sulfamethoxazole Allergy Severe Anaphylaxis Verified 10/06/24 12:35 sulfanilamide Allergy Severe Anaphylaxis Verified 10/06/24 12:35 trimethoprim Allergy Severe Anaphylaxis Verified 10/06/24 12:35 acetaminophen (From Percocet) AdvReac Severe Vomiting Verified 10/06/24 12:35 aspirin AdvReac Severe Vomiting Verified 10/06/24 12:35 cefprozil (From Cefzil) AdvReac Severe Hives Verified 10/06/24 12:35 moxifloxacin (From Avelox) AdvReac Severe Hives Verified 10/06/24 12:35 oxycodone (From Percocet) AdvReac Severe Vomiting Verified 10/06/24 12:35 Exam Constitutional Vital Signs, click to edit/add: Last Vital Signs Temp 98.0 F 10/21/24 17:24 Pulse 81 10/21/24 17:24 Resp 22 H 10/21/24 17:24 BP 148/78 H 10/21/24 17:24 Pulse Ox 94 L 10/21/24 17:24 O2 Del Method Nasal Cannula 10/21/24 17:24 O2 Flow Rate 2 10/21/24 17:24 Documenting provider has reviewed patient's vital signs: yes Common normals: apparent distress (Mild conversational dyspnea) Chest Common normals: inspection of chest normal Respiratory Common normals: normal respiratory effort and no retractions; not clear to ascultation bilaterally Auscultation: rhonchi, wheezes and egophony (Left lower lobe) Cardio Common normals: no JVD, regular rate and regular rhythm GI Common normals: soft to palpation and non-tender; negative for Normal to inspection, nondistended, normoactive bowel sounds present (Severe morbid obesity) Extremity Common normals: abnormal to inspection (1+ edema) Results Labs Labs: Short CBC 10/21/24 Range/Units 15:20 WBC 6.4 (4.0-11.0) 10^3/uL Hgb 9.2 L (12.0-16.0) g/dL Hct 28.5 L (36.0-48.0) % Plt Count 187 (150-450) 10^3/uL BMP 10/21/24 15:54 Sodium 136 Potassium 5.3 H Chloride 105 Carbon Dioxide 22.5 BUN 32.0 H Creatinine 1.44 H Glucose 433 H Calcium 9.7 Assessment and Plan Assessment and Plan (1) Left lower lobe pneumonia: (2) Musculoskeletal back pain: (3) Obesity: (4) Hypothyroidism: (5) Hypertension: (6) Diabetes 1.5, managed as type 2: (7) Asthma: Plan Inpatient findings: Respiratory distress, uncontrolled hypertensive resulting in hypertensive urgency causing her shortness of breath and complicated by acute left lower lobe pneumonia with left pleural effusion with white blood cell count normal but with left shift consistent with a bacterial process causing an acute exacerbation of her asthma Acute exacerbation of asthma with chronic hypoxic respiratory failure resulting in home oxygenation of 2 L at rest and 4 L with activity-secondary to acute left lower lobe pneumonia with possible nosocomial infection as she was in the hospital for 5 days at an outside tertiary care facility secondary to acute NSTEMI from left lower lobe pneumonia which she appears to be possibly untreated with oral doxycycline. Patient has tolerated Levaquin in the past we will try patient Levaquin and clindamycin to cover MRSA aerosol treatments and low-dose steroids secondary to the diabetes Recently acute NSTEMI type II-check echocardiogram for follow-up add nitrates Hypertensive urgency-shortness of breath is improving as her blood pressure is improving. Adding nitrates, maintain other blood pressure medications and adjust as necessary Insulin-dependent diabetes mellitus-insulin sliding scale plus home insulin regiment Severe morbid obesity-diet management Iron deficiency anemia-monitor daily Hyperkalemia-repeat in a.m. consider holding lisinopril Elevated BNP but much improved from her previous recent ER admission with acute NSTEMI type II-repeat in a.m. and check echocardiogram maintain oral diuretics Left pleural effusion-serial testing, improving cardiac function should resolve Lumbar radiculopathy-continue with home medications Gout-continue with home medications Coronary artery disease secondary to hypercholesterolemia-continue with home medications GERD-continue with home medications minus the Pepcid Hypothyroidism-check levels Admission status: Patient has acute exacerbation of asthma combined with her chronic hypoxic respiratory failure secondary to acute left lower lobe pneumonia with possible nosocomial pneumonia based on recent hospitalization, initial thought process was to start patient off as observation, patient is unlikely to be discharged within 2 midnights will change patient to inpatient status. Medically necessary treatment will span 2 midnights
[2024-10-21 18:58] LABS: Influenza Virus A Antigen Negative; Influenza Virus B Antigen Negative; Internal Control Within Normal Limits; Respiratory Syncytial Virus Not Detected (NOT DETECTE); SARS-CoV-2 Ag NEGATIVE (NEGATIVE)
[2024-10-21 19:07] LABS: Troponin I High Sensitivity 6.9 pg/mL (4.0-51.3)
[2024-10-21 19:13] LABS: Alanine Aminotransferase 24 U/L (14-59); Albumin Globulin Ratio 0.8; Albumin Level 2.9 g/dL (3.4-5.0); Alkaline Phosphatase 50 U/L (46-116); Aspartate Amino Transferase 20 U/L (15-37); Bilirubin Direct 0.2 mg/dL (0.0-0.2); Bilirubin Total 0.5 mg/dL (0.2-1.0); Free T3 1.85 pg/mL (2.18-3.98); Globulin 3.6 g/dL; Magnesium 1.8 mg/dL (1.8-2.4); Thyroid Stimulating Hormone 4.601 uIU/mL (0.358-3.740); Total Protein 6.5 g/dL (6.4-8.2)
[2024-10-21 20:51] LABS: Glucometer 391 mg/dL (74-106)
[2024-10-21] MEDS: METHYLPREDNISOLONE SOD SUCC PF 125 MG/2 ML VIAL 60 MG IVP (21:43)
[2024-10-21] MEDS: INSULIN ASPART 300 UNIT/3 ML PEN SUBQ (21:43)
[2024-10-21] MEDS: PREGABALIN 100 MG CAPSULE PO (21:44)
[2024-10-21] MEDS: LEVOFLOXACIN IN DEXTROSE 5 % 750 MG/150 ML PREMIX 100 MG IV (21:44)
[2024-10-21] MEDS: BENZONATATE 100 MG CAPSULE 200 MG PO (21:44)
[2024-10-21] MEDS: ISOSORBIDE MONONITRATE 30 MG TAB.ER.24H PO (21:44)
[2024-10-21] MEDS: CLINDAMYCIN PHOSPHATE/D5W 600 MG/50 ML PREMIX 100 MG IV (21:44)
[2024-10-21] MEDS: CYCLOBENZAPRINE HCL 10 MG TABLET PO (21:44)
[2024-10-21] MEDS: METOPROLOL TARTRATE 100 MG TABLET PO (21:44)
[2024-10-21] MEDS: PANTOPRAZOLE SODIUM 40 MG TABLET.DR PO (21:44)
[2024-10-21 22:03] LABS: Troponin I High Sensitivity 8.3 pg/mL (4.0-51.3)
[2024-10-21] MEDS: IPRATROPIUM/ALBUTEROL SULFATE 3 ML AMPUL.NEB IH (22:21)
[2024-10-22] VITALS (19 sets, daily range): BP systolic 122–145; BP diastolic 47–71; PULSE 68–86; TEMP 36.3–36.6; O2SAT 90–98
[2024-10-22] MEDS: IPRATROPIUM/ALBUTEROL SULFATE 3 ML AMPUL.NEB IH ×4 (04:26→23:00)
[2024-10-22] MEDS: METHYLPREDNISOLONE SOD SUCC PF 125 MG/2 ML VIAL 60 MG IVP (04:28)
[2024-10-22] MEDS: CLINDAMYCIN PHOSPHATE/D5W 600 MG/50 ML PREMIX 100 MG IV ×4 (04:29→21:53)
[2024-10-22] MEDS: BENZONATATE 100 MG CAPSULE 200 MG PO ×3 (05:47→21:53)
[2024-10-22] MEDS: LEVOTHYROXINE SODIUM 75 MCG TABLET 150 MCG PO (05:48)
[2024-10-22] MEDS: PREGABALIN 100 MG CAPSULE PO ×3 (05:48→21:53)
[2024-10-22 05:49] LABS: Hematocrit 26.4 % (36.0-48.0); Hemoglobin 8.4 g/dL (12.0-16.0); Mean Corpuscular HGB Conc 31.8 g/dL (29.9-35.2); Mean Corpuscular Hemoglobin 30.7 pg (26.7-34.0); Mean Corpuscular Volume 96.4 fL (81.0-99.0); Mean Platelet Volume 12.8 fL (9.5-13.5); Platelet Count 159 10^3/uL (150-450); Red Blood Count 2.74 10^6/uL (4.20-5.40); Red Cell Distribution Width 14.1 % (11.0-15.0); White Blood Count 4.1 10^3/uL (4.0-11.0)
--- NOTE | 2024-10-22 06:00 | ECG_ITS ---
[facility] Test Date: 2024-10-22 Pat Name: MARY JANE [facility] Department: Room: 229-1 Gender: Female Igniter Capper: : 1970 Requested By: SEA CHASE Order Number: [id number] Reading MD: NANDA KAUR M.D. Measurements Intervals [place] Rate: 74 P: 67 WA: 150 QRS: 111 QRSD: 86 T: 52 QT: 418 QTc: 465 Interpretive Statements SINUS RHYTHM POSSIBLE RIGHT VENTRICULAR HYPERTROPHY [SOME/ALL OF: PROMINENT R IN V1, LATE TRANSITION, RAD, MIKE, SSS] Poor R-Wave progression Compared to ECG 10/21/2024 15:02:25 Poor R wave progression is now present Electronically Signed On 10-23-2024 8:56:42 EDT by NANDA KAUR M.D.
[2024-10-22 06:11] LABS: Alanine Aminotransferase 21 U/L (14-59); Albumin Globulin Ratio 0.7; Albumin Level 2.6 g/dL (3.4-5.0); Alkaline Phosphatase 47 U/L (46-116); Anion Gap 17.9; Aspartate Amino Transferase 17 U/L (15-37); BUN Creatinine Ratio 21.6; Bilirubin Total 0.5 mg/dL (0.2-1.0); Calcium 9.1 mg/dL (8.5-10.1); Carbon Dioxide 22.9 mmol/L (21.0-32.0); Chloride 105 mmol/L (98-107); Estimated GFR (African America 48 (>=60 mL/min/1.73m^2); Estimated GFR (Non-African Ame 39 (>=60 mL/min/1.73m^2); Glucose 459 mg/dL (74-106); Potassium 5.8 mmol/L (3.5-5.1); Sodium 140 mmol/L (136-145); Total Protein 6.6 g/dL (6.4-8.2); Troponin I High Sensitivity 4.4 pg/mL (4.0-51.3)
[2024-10-22 06:36] LABS: Lymphocytes Absolute Manual 0.36 10^3/uL (1.20-3.80); Monocytes Absolute Manual 0.04 10^3/uL (0.30-0.80); Segmented Neut Absolute Manual 3.69 10^3/uL (1.4-6.5)
--- NOTE | 2024-10-22 07:26 | P.PN_ITS ---
Progress Note: Subjective Subjective Interval history: Patient was still mild conversational dyspnea, cough during the evaluation, shortness of breath persisting more than her baseline shortness of breath Exam Constitutional Vital Signs, click to edit/add: Last Vital Signs Temp 97.9 F 10/22/24 04:00 Pulse 75 10/22/24 05:58 Resp 20 10/22/24 04:26 BP 133/71 10/22/24 04:00 Pulse Ox 94 L 10/22/24 04:26 O2 Del Method Nasal Cannula 10/22/24 04:26 O2 Flow Rate 2 10/22/24 04:26 Documenting provider has reviewed patient's vital signs: yes Common normals: apparent distress (Mild conversational dyspnea) Chest Common normals: inspection of chest normal Respiratory Common normals: no retractions; abnormal respiratory effort (Mild conversational dyspnea) and not clear to ascultation bilaterally Auscultation: rhonchi (Less today but persisting), wheezes and egophony (Left lower lobe-unchanged) Cardio Common normals: no JVD, regular rate and regular rhythm GI Common normals: soft to palpation and non-tender; negative for Normal to inspection, nondistended, normoactive bowel sounds present (Severe morbid obesity) Extremity Common normals: abnormal to inspection (1+ edema) Progress Note: Objective Labs Labs: Short CBC 10/21/24 10/22/24 Range/Units 15:20 05:11 WBC 6.4 4.1 (4.0-11.0) 10^3/uL Hgb 9.2 L 8.4 L (12.0-16.0) g/dL Hct 28.5 L 26.4 L (36.0-48.0) % Plt Count 187 159 (150-450) 10^3/uL BMP 10/21/24 10/22/24 15:54 05:11 Sodium 136 140 Potassium 5.3 H 5.8 H Chloride 105 105 Carbon Dioxide 22.5 22.9 BUN 32.0 H 30.0 H Creatinine 1.44 H 1.39 H Glucose 433 H 459 H Calcium 9.7 9.1 Liver Function 10/21/24 10/22/24 Range/Units 18:41 05:11 Total Bilirubin 0.5 0.5 (0.2-1.0) mg/dL Direct Bilirubin 0.2 (0.0-0.2) mg/dL AST 20 17 (15-37) U/L ALT 24 21 (14-59) U/L Alkaline Phosphatase 50 47 (46-116) U/L Albumin 2.9 L 2.6 L (3.4-5.0) g/dL Progress Note: A&P Assessment and Plan (1) Left lower lobe pneumonia: (2) Musculoskeletal back pain: (3) Obesity: (4) Hypothyroidism: (5) Hypertension: (6) Diabetes 1.5, managed as type 2: (7) Asthma: Plan Inpatient findings: Respiratory distress, uncontrolled hypertensive resulting in hypertensive urgency causing her shortness of breath and complicated by acute left lower lobe pneumonia with left pleural effusion with white blood cell count normal but with left shift consistent with a bacterial process causing an acute exacerbation of her asthma Acute exacerbation of asthma with chronic hypoxic respiratory failure resulting in home oxygenation of 2 L at rest and 4 L with activity-secondary to acute left lower lobe pneumonia with possible nosocomial infection as she was in the hospital for 5 days at an outside tertiary care facility secondary to acute NSTEMI from left lower lobe pneumonia which she appears to be possibly untreated with oral doxycycline. Patient has tolerated Levaquin in the past we will try patient Levaquin and clindamycin to cover MRSA aerosol treatments and low-dose steroids secondary to the diabetes, overall feels improved today's will maintain current treatment plan Recently acute NSTEMI type II-check echocardiogram for follow-up add nitrates- pending Hypertensive urgency-shortness of breath is improving as her blood pressure is improving. Adding nitrates, maintain other blood pressure medications and adjust as necessary-blood pressure improved today Insulin-dependent diabetes mellitus-insulin sliding scale plus home insulin regiment Severe morbid obesity-diet management Iron deficiency anemia-monitor daily Hyperkalemia-further elevated today, holding lisinopril starting Kayexalate, repeat serial labs every 4 hours and intensive monitoring with telemetry to continue-with recent acute NSTEMI patient high risk for arrhythmia Elevated BNP but much improved from her previous recent ER admission with acute NSTEMI type II-repeat in a.m. and check echocardiogram maintain oral diuretics Left pleural effusion-serial testing, improving cardiac function should resolve Lumbar radiculopathy-continue with home medications Gout-continue with home medications Coronary artery disease secondary to hypercholesterolemia-continue with home medications GERD-continue with home medications minus the Pepcid Hypothyroidism-check levels Admission status: Patient has acute exacerbation of asthma combined with her chronic hypoxic respiratory failure secondary to acute left lower lobe pneumonia with possible nosocomial pneumonia based on recent hospitalization, initial thought process was to start patient off as observation, patient is unlikely to be discharged within 2 midnights will change patient to inpatient status. Medically necessary treatment will span 2 midnights due to intensive monitoring secondary to the hyperkalemia with frequent labs every 4 hours for monitoring potassium and persisting need for aerosol treatments, patient high risk for arrhythmia secondary to the need for the albuterol's and her hyperkalemia and recent acute NSTEMI ?
[2024-10-22] MEDS: 0.9 % SODIUM CHLORIDE 1,000 ML 250 ML IV ×2 (08:45→18:30)
[2024-10-22] MEDS: INSULIN ASPART 300 UNIT/3 ML PEN SUBQ ×4 (08:45→21:57)
[2024-10-22] MEDS: PANTOPRAZOLE SODIUM 40 MG TABLET.DR PO ×2 (08:46→21:53)
[2024-10-22] MEDS: ISOSORBIDE MONONITRATE 30 MG TAB.ER.24H PO (08:46)
[2024-10-22] MEDS: ALLOPURINOL 300 MG TABLET PO (08:46)
[2024-10-22] MEDS: CLOPIDOGREL BISULFATE 75 MG TABLET PO (08:46)
[2024-10-22] MEDS: MONTELUKAST SODIUM 10 MG TABLET PO (08:47)
[2024-10-22] MEDS: METOPROLOL TARTRATE 100 MG TABLET PO ×2 (08:47→21:53)
[2024-10-22] MEDS: METHYLPREDNISOLONE SOD SUCC PF 40 MG/ML VIAL IVP ×3 (08:47→21:52)
[2024-10-22] MEDS: FUROSEMIDE 40 MG TABLET PO (08:47)
--- NOTE | 2024-10-22 09:07 | CM.NOTE ---
Rounds made with Dr. Chatterjee, pt continues to c/o increased work of breathing with minimal activity. No discharge today, Dr. Chatterjee will change pt status to inpatient.
--- NOTE | 2024-10-22 09:20 | SWNOTE1 ---
SW called and pt is current with [facility], nursing only. SW spoke with case management and pt does wear home oxygen at 2 liters at rest and 4 liters with activity.
--- NOTE | 2024-10-22 09:42 | ECG_ITS ---
[facility] Test Date: 2024-10-22 Pat Name: MARY JANE [facility] Department: Room: 229-1 Gender: Female Brainer: : 1970 Requested By: SEA CHASE Order Number: [id number] Reading MD: NANDA KAUR M.D. Measurements Intervals [place] Rate: 75 P: 79 CT: 152 QRS: 151 QRSD: 87 T: 71 QT: 429 QTc: 480 Interpretive Statements SINUS RHYTHM POSSIBLE RIGHT VENTRICULAR HYPERTROPHY [SOME/ALL OF: PROMINENT R IN V1, LATE TRANSITION, RAD, MIKE, SSS] Poor R-wave progression Compared to ECG 10/22/2024 04:23:33 No significant changes Electronically Signed On 10-23-2024 9:02:34 EDT by NANDA KAUR M.D.
[2024-10-22 10:20] LABS: Anion Gap 16.4; BUN Creatinine Ratio 21.9; Calcium 9.2 mg/dL (8.5-10.1); Carbon Dioxide 22.2 mmol/L (21.0-32.0); Chloride 103 mmol/L (98-107); Estimated GFR (African America 38 (>=60 mL/min/1.73m^2); Estimated GFR (Non-African Ame 31 (>=60 mL/min/1.73m^2); Potassium 5.6 mmol/L (3.5-5.1); Sodium 136 mmol/L (136-145)
[2024-10-22 10:23] LABS: Glucose 551 mg/dL (74-106)
[2024-10-22] MEDS: SODIUM POLYSTYRENE SULFON 15 GM/60 ML ORAL.SUSP KAYEXALATE 30 GM PO (10:25)
--- NOTE | 2024-10-22 10:26 | SWNOTE1 ---
DERRICK faxed updates to [facility]. Updates included faec sheet, ED note, and H&P.
[2024-10-22] MEDS: INSULIN REGULAR, HUMAN (100 UNIT/ML) 10 ML MDV SUBQ ×3 (11:48→21:58)
--- NOTE | 2024-10-22 13:07 | SWNOTE1 ---
SW did review PT note and recommendation of home health PT. SW to have PT added to home health order.
[2024-10-22 13:20] LABS: Glucometer 550 mg/dL (74-106)
[2024-10-22 14:19] LABS: Anion Gap 14.6; BUN Creatinine Ratio 21.9; Calcium 9.3 mg/dL (8.5-10.1); Carbon Dioxide 22.8 mmol/L (21.0-32.0); Chloride 105 mmol/L (98-107); Estimated GFR (African America 35 (>=60 mL/min/1.73m^2); Estimated GFR (Non-African Ame 29 (>=60 mL/min/1.73m^2); Potassium 4.4 mmol/L (3.5-5.1); Sodium 138 mmol/L (136-145)
[2024-10-22 14:22] LABS: Glucose 558 mg/dL (74-106)
[2024-10-22 14:22] LABS: Bilirubin Urine NEGATIVE (NEGATIVE); Blood Urine NEGATIVE (NEGATIVE); Clarity Urine CLEAR (CLEAR); Color Urine LT. YELLOW (YELLOW); Glucose Urine UA >=1000 mg/dL (NEGATIVE); Ketones Urine TRACE mg/dL (NEGATIVE); Leukocyte Esterase Urine NEGATIVE (NEGATIVE); Nitrite Urine NEGATIVE (NEGATIVE); Protein Urine NEGATIVE (NEG/TRACE); Specific Gravity Urine 1.015 (1.005-1.025); Urobilinogen Urine 0.2 EU/dL (0.2-1.0); pH Urine 5.5 (5.0-9.0)
[2024-10-22 14:37] LABS: Bacteria Urine TRACE #/HPF (NONE SEEN); Mucus Urine NONE SEEN (NONE SEEN); RBC Urine 0-2 #/HPF (0-2); Squamous Epithelial Cell Urine FEW #/LPF (NONE/RARE); WBC Urine NONE SEEN #/HPF (NONE SEEN)
[2024-10-22 14:38] LABS: Cast Seen? NONE SEEN #/LPF (NONE SEEN); Crystals Seen? None Seen #/HPF (None Seen)
[2024-10-22 17:45] LABS: Glucometer 485 mg/dL (74-106)
[2024-10-22] MEDS: 0.9 % SODIUM CHLORIDE 250 ML 10 ML IV (18:00)
--- NOTE | 2024-10-22 18:02 | PC.NURSE ---
PVR completed and was negative. Pt voided 400ml prior
[2024-10-22 18:18] LABS: Anion Gap 16.3; BUN Creatinine Ratio 19.7; Calcium 9.4 mg/dL (8.5-10.1); Carbon Dioxide 21.7 mmol/L (21.0-32.0); Chloride 104 mmol/L (98-107); Estimated GFR (African America 29 (>=60 mL/min/1.73m^2); Estimated GFR (Non-African Ame 24 (>=60 mL/min/1.73m^2); Glucose 500 mg/dL (74-106); Sodium 138 mmol/L (136-145)
--- NOTE | 2024-10-22 18:25 | CA_ITS ---
Patient Name: MARY JANE [facility] MR#: [id number] : 1970 Exam Date: 10/22/2024 Ordering Doctor: DR SEA CHASE . ECHOCARDIOGRAM REPORT PROCEDURE: CA ECHO LIMITED INDICATIONS: Dyspnea, elevated BNP, diabetes, hypertension, CAD COMPARISON: None. DESCRIPTION: Limited ECHOCARDIOGRAM Real-time transthoracic echocardiography with 2D and M-mode performed. QUALITY: Limited echocardiogram per physician order. Technically difficult due to patient's condition. LEFT VENTRICLE: Normal chamber size. Borderline left ventricular hypertrophy. LV EF: Global left ventricular systolic function is difficult to assess but appears preserved; visually estimated ejection fraction is 55%. Unable to assess regional wall motion abnormalities. Suggest contrast study for better delineation of endocardial borders. LEFT ATRIUM: Normal in size. RIGHT ATRIUM: Poorly seen. RIGHT VENTRICLE: Normal in size and systolic function. TRICUSPID VALVE: Normal mobility and thickness. MITRAL VALVE: Normal mobility and thickness. AORTIC VALVE: Normal trileaflet appearance. No visible sclerosis. Normal leaflet mobility. AORTIC ROOT: Normal diameter and appearance. Ascending aorta is normal in size. PULMONIC VALVE: Normal thickness and mobility. PERICARDIUM: Anterior free space; trivial effusion versus fat pad. CONCLUSION: 1. Global left ventricular systolic function is difficult to assess but appears preserved; visually estimated ejection fraction is 55% 2. The right ventricle appears normal in size and systolic function 3. Borderline left ventricular hypertrophy 4. The left atrium is normal in size 5. Anterior face may; trivial effusion versus fat pad A limited echocardiogram was performed Adult Echocardiography Procedure Report Left Ventricle LVEDD (3.7 - 5.6 cm): 4.68 cm LVESD (2.2 - 4.0 cm): 3.22 cm LVIVS thickness (0.6 - 1.2 cm): 1.05 cm LVPW thickness (0.5 - 1.0 cm): 1.14 cm LVOT Diameter 2.00 cm Left Atrium Left Atrium Systolic Dimension: 3.89 cm Mitral Valve Right Ventricle Aorta AO Root Diam: 3.08 cm Ascending Ao Diam: 2.97 cm Aortic Valve Tricuspid Valve Pulmonic Valve Right Atrium Dictated by: Rebeca Valadez M.D. on 10/22/2024 at 15:30 Approved by: Rebeca Valadez M.D. on 10/22/2024 at 15:33
--- NOTE | 2024-10-22 18:33 | PC.NURSE ---
patient would like to take a break from the compression hose for the night
--- NOTE | 2024-10-22 18:38 | PC.NURSE ---
dr beltran notified of abnormal labs
[2024-10-22] MEDS: CYCLOBENZAPRINE HCL 10 MG TABLET PO (21:53)
[2024-10-22] MEDS: LEVOFLOXACIN IN DEXTROSE 5 % 750 MG/150 ML PREMIX 100 MG IV (21:53)
[2024-10-22 22:03] LABS: Glucometer 402 mg/dL (74-106)
[2024-10-22 22:32] LABS: Anion Gap 17.2; Carbon Dioxide 22.9 mmol/L (21.0-32.0); Chloride 106 mmol/L (98-107); Estimated GFR (African America 31 (>=60 mL/min/1.73m^2); Estimated GFR (Non-African Ame 26 (>=60 mL/min/1.73m^2); Glucose 377 mg/dL (74-106); Potassium 4.1 mmol/L (3.5-5.1); Sodium 142 mmol/L (136-145)
[2024-10-23] VITALS (10 sets, daily range): BP systolic 120–125; BP diastolic 67–70; PULSE 72–88; TEMP 36.6; O2SAT 90–96
[2024-10-23] MEDS: IPRATROPIUM/ALBUTEROL SULFATE 3 ML AMPUL.NEB IH (04:28)
[2024-10-23] MEDS: CLINDAMYCIN PHOSPHATE/D5W 600 MG/50 ML PREMIX 100 MG IV ×2 (05:07→10:08)
[2024-10-23] MEDS: METHYLPREDNISOLONE SOD SUCC PF 40 MG/ML VIAL IVP (05:07)
[2024-10-23] MEDS: PREGABALIN 100 MG CAPSULE PO (05:08)
[2024-10-23] MEDS: BENZONATATE 100 MG CAPSULE 200 MG PO (05:08)
[2024-10-23 05:12] LABS: Glucometer 95 mg/dL (74-106)
[2024-10-23] MEDS: LEVOTHYROXINE SODIUM 75 MCG TABLET 150 MCG PO (05:43)
[2024-10-23 06:25] LABS: Hematocrit 24.3 % (36.0-48.0); Hemoglobin 7.9 g/dL (12.0-16.0); Immature Granulocytes Abs Auto 0.02 10^3/uL (0.00-0.03); Immature Granulocytes Pct Auto 0.3 % (0.0-0.5); Lymphocytes Absolute Auto 0.6 10^3/uL (1.2-3.8); Lymphocytes Percent Auto 8.1 % (20.5-60.0); Mean Corpuscular HGB Conc 32.5 g/dL (29.9-35.2); Mean Corpuscular Hemoglobin 30.6 pg (26.7-34.0); Mean Corpuscular Volume 94.2 fL (81.0-99.0); Mean Platelet Volume 12.4 fL (9.5-13.5); Monocytes Absolute Auto 0.3 10^3/uL (0.3-0.8); Neutrophils Absolute Auto 5.9 10^3/uL (1.4-6.5); Neutrophils Percent Auto 86.6 % (43.0-75.0); Platelet Count 162 10^3/uL (150-450); Red Blood Count 2.58 10^6/uL (4.20-5.40); Red Cell Distribution Width 14.2 % (11.0-15.0); White Blood Count 6.8 10^3/uL (4.0-11.0)
[2024-10-23 06:45] LABS: Alanine Aminotransferase 20 U/L (14-59); Albumin Globulin Ratio 0.7; Albumin Level 2.6 g/dL (3.4-5.0); Alkaline Phosphatase 44 U/L (46-116); Anion Gap 15.3; Aspartate Amino Transferase 13 U/L (15-37); BUN Creatinine Ratio 25.7; Bilirubin Total 0.2 mg/dL (0.2-1.0); Calcium 8.8 mg/dL (8.5-10.1); Carbon Dioxide 23.7 mmol/L (21.0-32.0); Chloride 108 mmol/L (98-107); Estimated GFR (African America 36 (>=60 mL/min/1.73m^2); Estimated GFR (Non-African Ame 30 (>=60 mL/min/1.73m^2); Globulin 3.7 g/dL; Glucose 86 mg/dL (74-106); Sodium 143 mmol/L (136-145); Total Protein 6.3 g/dL (6.4-8.2); Troponin I High Sensitivity 7.1 pg/mL (4.0-51.3)
[2024-10-23] MEDS: FUROSEMIDE 40 MG/4 ML VIAL IVP (08:36)
[2024-10-23] MEDS: MONTELUKAST SODIUM 10 MG TABLET PO (08:36)
[2024-10-23] MEDS: PANTOPRAZOLE SODIUM 40 MG TABLET.DR PO (08:36)
[2024-10-23] MEDS: METOPROLOL TARTRATE 100 MG TABLET PO (08:36)
[2024-10-23] MEDS: ISOSORBIDE MONONITRATE 30 MG TAB.ER.24H PO (08:36)
[2024-10-23] MEDS: CLOPIDOGREL BISULFATE 75 MG TABLET PO (08:36)
[2024-10-23] MEDS: ALLOPURINOL 300 MG TABLET PO (08:36)
--- NOTE | 2024-10-23 09:18 | PT.DAILY ---
Physical Therapy Daily Note PT Daily Note/Assess Start: 10/23/24 09:14 Freq: Status: Active Protocol: Document 10/23/24 09:15 MACI (Rec: 10/23/24 09:18 MACI [id number]) Physical Therapy Daily Note/Assessment Time In/Time Out Time In 08:40 Time Out 09:00 Pain In Pain N/A Pain Out Pain N/A Subjective Subjective Supine upon arrival. Coughing spell leads to pt needing to use restroom. Agrees to allow TELEPHONE SURVEYOR to assist with this. Therapeutic Exercise Time Therapeutic Exercise 5 Minutes (minutes) Therapeutic Exercise 0 Units Therapeutic Exercise Treatment Therapeutic Exercise Seated bilat LE strengthening ex complete while sitting Treatment in BS chair 10x ea. Therapeutic Activity Time Therapeutic Activity 10 Minutes (minutes) Therapeutic Activity 1 Units Therapeutic Activity Treatment Bed Mobility Ability Standby Assistance Chair Transfer Standby Assistance Ability Therapeutic Activity Supine>sit SBA with increased time needed. Sit>stand Comments from EOB SBA for safety. Pt amb 15' with [facility] to restroom. No assistance required to doff brief. Using grab bars for toilet transfer SBA. Pt able to perform pericare without assistance. Sit>stand using grab bar SBA. Pt amb 5' with [facility] SBA to sink to wash hands. No LOB with static standing. Pt amb 20' with [facility] SBA to BS chair. sits in BS chair for ex then remains there upon completion with call light within reach and needs met. Total Physical Therapy Time Total Therapy 15 Minutes Total Physical 1 Therapy Units Summary Daily Note Summary Improved gait endurance with [facility] today.
--- NOTE | 2024-10-23 09:57 | P.DS_ITS ---
DS: Providers Provider Date of admission: 10/22/24 09:39 Primary care physician: RICHELLE FOURNIER Consults: 10/21/24 18:22 Consult to Pharmacy Routine Consulting Provider: Reason for consultation: Please Pitman me when Med Rec is Updated Has provider been notified: No Occupational Therapy Eval and Treat Routine Reason for consultation: Only if needed for Rehab Has provider been notified: No Physical Therapy Eval and Treat Routine Reason for consultation: Eval and Treat Has provider been notified: No DS: Diagnosis Discharge Diagnosis (1) Left lower lobe pneumonia: (2) Musculoskeletal back pain: (3) Obesity: (4) Hypothyroidism: (5) Hypertension: (6) Diabetes 1.5, managed as type 2: (7) Asthma: Plan Inpatient findings: Respiratory distress, uncontrolled hypertensive resulting in hypertensive urgency causing her shortness of breath and complicated by acute left lower lobe pneumonia with left pleural effusion with white blood cell count normal but with left shift consistent with a bacterial process causing an acute exacerbation of her asthma Acute exacerbation of asthma with chronic hypoxic respiratory failure resulting in home oxygenation of 2 L at rest and 4 L with activity-secondary to acute left lower lobe pneumonia with possible nosocomial infection as she was in the hospital for 5 days at an outside tertiary care facility secondary to acute NSTEMI from left lower lobe pneumonia which she appears to be possibly untreated with oral doxycycline. Patient has tolerated Levaquin in the past we will try patient Levaquin and clindamycin to cover MRSA aerosol treatments and low-dose steroids secondary to the diabetes, overall feels improved today's will maintain current treatment plan Recently acute NSTEMI type II-check echocardiogram for follow-up add nitrates- pending Hypertensive urgency-shortness of breath is improving as her blood pressure is improving. Adding nitrates, maintain other blood pressure medications and adjust as necessary-blood pressure improved today Insulin-dependent diabetes mellitus-insulin sliding scale plus home insulin regiment Severe morbid obesity-diet management Iron deficiency anemia-monitor daily Hyperkalemia-further elevated today, holding lisinopril starting Kayexalate, repeat serial labs every 4 hours and intensive monitoring with telemetry to continue-with recent acute NSTEMI patient high risk for arrhythmia Elevated BNP but much improved from her previous recent ER admission with acute NSTEMI type II-repeat in a.m. and check echocardiogram maintain oral diuretics Left pleural effusion-serial testing, improving cardiac function should resolve Lumbar radiculopathy-continue with home medications Gout-continue with home medications Coronary artery disease secondary to hypercholesterolemia-continue with home medications GERD-continue with home medications minus the Pepcid Hypothyroidism-check levels Admission status: Patient has acute exacerbation of asthma combined with her chronic hypoxic respiratory failure secondary to acute left lower lobe pneumonia with possible nosocomial pneumonia based on recent hospitalization, initial thought process was to start patient off as observation, patient is unlikely to be discharged within 2 midnights will change patient to inpatient status. Medically necessary treatment will span 2 midnights due to intensive monitoring secondary to the hyperkalemia with frequent labs every 4 hours for monitoring potassium and persisting need for aerosol treatments, patient high risk for arrhythmia secondary to the need for the albuterol's and her hyperkalemia and recent acute NSTEMI ? DS: Summary Hospital Course Hospital Course: Patient seen and evaluated in the emergency room with increasing cough and shortness of breath, she has chronic hypoxic respiratory failure requiring 2 to 4 L of supplemental oxygen, white blood cell count elevated on admission, chest x-ray consistent with left lower lobe pneumonia, patient was placed on IV antibiotics and frequent aerosol treatments, patient has significantly elevated hyperglycemia with sugars in the 4-5 100s, this resulted in an acute kidney injury with stage I with creatinine greater than 150% above baseline with decreased urine output for 6 hours, also developed significant hyperkalemia that did not improve with fluid resuscitation were necessitated giving Kayexalate, she was placed on telemetry with Chem-8 stat and every 6 4 hours to monitor potassium and kidney function closely. She was given multiple fluid boluses, her creatinine is returned to normal today sugars have returned to normal today, does have a slight elevation in her BNP secondary to the fluids given, she will get 1 dose of Lasix this morning she is actually down will be weaned off of her supplemental oxygen at rest, she will still likely need it with activity, with her overall improvement should be discharged home in improving condition. Medications see list. Follow-up with us in the office next week. Time Spent with Patient Time attestation: Total time spent providing and/or coordinating discharge services: Exam Constitutional Vital Signs, click to edit/add: Last Vital Signs Temp 97.9 F 10/23/24 08:30 Pulse 72 10/23/24 09:44 Resp 18 10/23/24 08:30 BP 122/67 10/23/24 08:30 Pulse Ox 90 L 10/23/24 08:30 O2 Del Method Room Air 10/23/24 08:30 O2 Flow Rate 1 10/23/24 04:29 Documenting provider has reviewed patient's vital signs: yes Common normals: no apparent distress (Conversational dyspnea resolved) Chest Common normals: inspection of chest normal Respiratory Common normals: normal respiratory effort (Conversational dyspnea resolved) and no retractions; not clear to ascultation bilaterally Auscultation: rhonchi (Much improved); no wheezes and no egophony (Egophony resolved) Cardio Common normals: no JVD, regular rate and regular rhythm GI Common normals: soft to palpation and non-tender; negative for Normal to inspection, nondistended, normoactive bowel sounds present (Severe morbid obesity) Extremity Common normals: abnormal to inspection (Unchanged) DS: Data Data Completed and Pending Labs on day of discharge: Labs from last 24 hours 10/23/24 10/23/24 10/22/24 05:55 05:06 22:06 WBC 6.8 RBC 2.58 L Hgb 7.9 L Hct 24.3 L MCV 94.2 MCH 30.6 MCHC 32.5 RDW 14.2 Plt Count 162 MPV 12.4 Neut % (Auto) 86.6 H Lymph % (Auto) 8.1 L Dundy % (Auto) 5.0 Eos % (Auto) 0.0 L Baso % (Auto) 0.0 L Neut # (Auto) 5.9 Lymph # (Auto) 0.6 L Dundy # (Auto) 0.3 Eos # (Auto) 0.0 Baso # (Auto) 0.0 Abs Immat Gran (auto) 0.02 Imm/Tot Granulo (auto) 0.3 Sodium 143 142 Potassium 4.0 4.1 Chloride 108 H 106 Carbon Dioxide 23.7 22.9 Anion Gap 15.3 17.2 BUN 45.0 H 40.0 H Creatinine 1.75 H 2.00 H Est GFR ( Amer) 36 L 31 L Est GFR (Non-Af Amer) 30 L 26 L BUN/Creatinine Ratio 25.7 20.0 Glucose 86 377 H Calcium 8.8 9.0 Total Bilirubin 0.2 AST 13 L ALT 20 Alkaline Phosphatase 44 L Troponin I High Sens 7.1 NT-Pro-B Natriuret Pep 2578.0 H* Total Protein 6.3 L Albumin 2.6 L Globulin 3.7 Albumin/Globulin Ratio 0.7 Urine Color Urine Clarity Urine pH Ur Specific [place] Urine Protein Urine Glucose (UA) Urine Ketones Urine Occult Blood Urine Nitrite Urine Bilirubin Urine Urobilinogen Ur Leukocyte Esterase Urine RBC Urine WBC Ur Squamous Epith Cells Urine Crystals Urine Bacteria Urine Casts Urine Mucus POC Glucose 95 10/22/24 10/22/24 10/22/24 21:56 18:00 17:33 WBC RBC Hgb Hct MCV MCH MCHC RDW Plt Count MPV Neut % (Auto) Lymph % (Auto) Dundy % (Auto) Eos % (Auto) Baso % (Auto) Neut # (Auto) Lymph # (Auto) Dundy # (Auto) Eos # (Auto) Baso # (Auto) Abs Immat Gran (auto) Imm/Tot Granulo (auto) Sodium 138 Potassium 4.0 Chloride 104 Carbon Dioxide 21.7 Anion Gap 16.3 BUN 42.0 H Creatinine 2.13 H Est GFR ( Amer) 29 L Est GFR (Non-Af Amer) 24 L BUN/Creatinine Ratio 19.7 Glucose 500 H Calcium 9.4 Total Bilirubin AST ALT Alkaline Phosphatase Troponin I High Sens NT-Pro-B Natriuret Pep Total Protein Albumin Globulin Albumin/Globulin Ratio Urine Color Urine Clarity Urine pH Ur Specific [place] Urine Protein Urine Glucose (UA) Urine Ketones Urine Occult Blood Urine Nitrite Urine Bilirubin Urine Urobilinogen Ur Leukocyte Esterase Urine RBC Urine WBC Ur Squamous Epith Cells Urine Crystals Urine Bacteria Urine Casts Urine Mucus POC Glucose 402 H 485 H 10/22/24 10/22/24 10/22/24 14:00 13:52 13:17 WBC RBC Hgb Hct MCV MCH MCHC RDW Plt Count MPV Neut % (Auto) Lymph % (Auto) D[place] % (Auto) Eos % (Auto) Baso % (Auto) Neut # (Auto) Lymph # (Auto) Dundy # (Auto) Eos # (Auto) Baso # (Auto) Abs Immat Gran (auto) Imm/Tot Granulo (auto) Sodium 138 Potassium 4.4 Chloride 105 Carbon Dioxide 22.8 Anion Gap 14.6 BUN 40.0 H Creatinine 1.83 H Est GFR ( Amer) 35 L Est GFR (Non-Af Amer) 29 L BUN/Creatinine Ratio 21.9 Glucose 558 H* Calcium 9.3 Total Bilirubin AST ALT Alkaline Phosphatase Troponin I High Sens NT-Pro-B Natriuret Pep Total Protein Albumin Globulin Albumin/Globulin Ratio Urine Color Lt. yellow Urine Clarity Clear Urine pH 5.5 Ur Specific [place] 1.015 Urine Protein Negative Urine Glucose (UA) >=1000 A Urine Ketones Trace A Urine Occult Blood Negative Urine Nitrite Negative Urine Bilirubin Negative Urine Urobilinogen 0.2 Ur Leukocyte Esterase Negative Urine RBC 0-2 Urine WBC None seen Ur Squamous Epith Cells Few A Urine Crystals None seen Urine Bacteria Trace A Urine Casts None seen Urine Mucus None seen POC Glucose 550 H* 10/22/24 09:59 WBC RBC Hgb Hct MCV MCH MCHC RDW Plt Count MPV Neut % (Auto) Lymph % (Auto) [place] % (Auto) Eos % (Auto) Baso % (Auto) Neut # (Auto) Lymph # (Auto) D[place] # (Auto) Eos # (Auto) Baso # (Auto) Abs Immat Gran (auto) Imm/Tot Granulo (auto) Sodium 136 Potassium 5.6 H Chloride 103 Carbon Dioxide 22.2 Anion Gap 16.4 BUN 37.0 H Creatinine 1.69 H Est GFR ( Amer) 38 L Est GFR (Non-Af Amer) 31 L BUN/Creatinine Ratio 21.9 Glucose 551 H* Calcium 9.2 Total Bilirubin AST ALT Alkaline Phosphatase Troponin I High Sens NT-Pro-B Natriuret Pep Total Protein Albumin Globulin Albumin/Globulin Ratio Urine Color Urine Clarity Urine pH Ur Specific [place] Urine Protein Urine Glucose (UA) Urine Ketones Urine Occult Blood Urine Nitrite Urine Bilirubin Urine Urobilinogen Ur Leukocyte Esterase Urine RBC Urine WBC Ur Squamous Epith Cells Urine Crystals Urine Bacteria Urine Casts Urine Mucus POC Glucose Preliminary micro results at discharge 10/22/24 14:00 Urine Culture - Preliminary Urine,Clean Catch Pending - Specimen sent to [facility] Discharge Plan Discharge Disposition: Home, Self-Care Condition: Fair Discharge Medications: New benzonatate 200 mg capsule 200 mg PO TID PRN (Reason: cough) Qty: 20 0RF levofloxacin 750 mg tablet 750 mg PO DAILY 10 Days Qty: 10 0RF Rx Instructions: Has tolerated IV lovenox in hospital clindamycin HCl 300 mg capsule 300 mg PO Q6H 10 Days Qty: 40 0RF Continued clopidogrel 75 mg tablet 75 mg PO DAILY lisinopril 10 mg tablet 10 mg PO DAILY pregabalin [Lyrica] 100 mg capsule 100 mg PO TID fenofibrate 160 mg tablet 160 mg PO DAILY fluticasone propionate [Flonase Allergy Relief] 50 mcg/actuation spray,suspension 1 spray intranasal DAILY PRN (Reason: nasal congestion) Rx Instructions: administer into each nostril Humulin R U-500 (Conc) Insulin 500 unit/mL solution 150 unit subcut QPM levothyroxine 175 mcg capsule 150 mcg PO DAILY montelukast 10 mg tablet 10 mg PO DAILY pantoprazole [Protonix] 40 mg tablet,delayed release (DR/EC) 40 mg PO BID Trulicity 4.5 mg/0.5 mL pen injector 4.5 mg subcut QWEEK Rx Instructions: friday nystatin 100,000 unit/gram cream 1 applic topical DAILY PRN (Reason: rash) Repatha SureClick 140 mg/mL pen injector 140 mg SUBCUT .Q2WKS metoprolol tartrate 100 mg tablet 100 mg PO BID (DME) Omnipod Dash Pods (Gen 4) Cartridge SUBCUT Activity: resume usual activities as tolerated Diet: regular diet Print Language: Lao Patient Instructions: Pneumonia (DC) Security Guards Dispatcher/Unattended Ground Sensor Specialist Instructions: Resume [facility] health. Phone number is [phone] Forms: Portal Instructions Follow Up Appointments: Follow up with Richelle Fournier 7-10 days'
--- NOTE | 2024-10-26 16:30 | CM.DCFOLLOWU ---
Person spoke with: patient How are you feeling? feeling well How is your pain? none Did you understand your discharge instructions?yes Do you have any questions about your discharge instructions? no Were you given any prescriptions at discharge? yes Were you able to get your prescriptions filled?yes Do you understand how to take your medications as ordered?yes Do you have any questions about your follow up appointment and do you plan to keep your follow up appointment? no questions, will call and schedule follow up Is there anything else that you would like to discuss? no Questions/Comments/Concerns/Other:no
== END 2024-10-23 11:46 | disposition home health service (06) | DRG 193 ==
LOC: ER 16:10 → MS 17:12
PROVIDERS: Admitting Provider Family Medicine; Emergency Provider Emergency Medicine; PCP Nurse Practitioner Family; Visit Provider Family Medicine
DX: J18.9 Pneumonia, unspecified organism (principal); I21.A1 Myocardial infarction type 2; J45.901 Unspecified asthma with (acute) exacerbation; J96.11 Chronic respiratory failure with hypoxia; J90 Pleural effusion, not elsewhere classified; N17.9 Acute kidney failure, unspecified; Z68.42 Body mass index [BMI] 45.0-49.9, adult; I16.0 Hypertensive urgency; E66.01 Morbid (severe) obesity due to excess calories; E03.9 Hypothyroidism, unspecified; E13.65 Other specified diabetes mellitus with hyperglycemia; Z99.81 Dependence on supplemental oxygen; Z79.85 Long-term (current) use of injectable non-insulin antidiabetic drugs; Z79.4 Long term (current) use of insulin; D50.9 Iron deficiency anemia, unspecified; E87.5 Hyperkalemia; R79.89 Other specified abnormal findings of blood chemistry; M54.16 Radiculopathy, lumbar region; M10.9 Gout, unspecified; I25.10 Atherosclerotic heart disease of native coronary artery without angina pectoris; K21.9 Gastro-esophageal reflux disease without esophagitis; E78.00 Pure hypercholesterolemia, unspecified; M54.9 Dorsalgia, unspecified; I10 Essential (primary) hypertension; Z79.890 Hormone replacement therapy; Z85.43 Personal history of malignant neoplasm of ovary
CPT/HCPCS: 36415; 51798; 71045; 80048; 80053; 80076; 81001; 82948; 83605; 83735; 83880; 84436; 84443; 84481; 84484; 85007; 85025; 85027; 87040; 87070; 87086; 87205; 87420; 87804; 87811; 93005; 93308; 94640; 94667; 94668; 94761; 96365; 96366; 96367; 96375; 96376; 97161; 97165; 97530; 99285; G0328; G0378; J0736; J1817; J1938; J2919

== ENCOUNTER 2024-11-08 13:41 | Inpatient (IN) | payer MEDICARE, MEDICAID, SELFPAY ==
--- OUTSIDE RECORDS SUMMARY | 2023-08-18 06:30 | XMS_ITS ---
Author Organization [facility] Address [address] [place] [address] Care Team Providers Care Cap Maker Name Role Phone Ann Rocha Primary Care Provider Vladimir Hurt Unavailable [phone] REASON FOR VISIT RC LEFT KNEE ARTHRITIS Medications Medication SIG (Take, Route, Frequency, Duration) Notes Start Date End Date Status Acidophilus - 1 cap(s) orally once a day Active Cinnamon 500 mg 2 cap(s) orally 2 ti mes a day Active biotin 38218 mcg 1 cap(s) orally once a day Active fexofenadine 180 mg 1 tab(s) orally once a day Active Stool Softener with Laxative 50 mg-8.6 mg 2 tab(s) orally once a day (at bedtime) Active Metoprolol Tartrate 50 mg 1 tab(s) orall y 2 times a day Active Symbicort 160 mcg-4.5 mcg/inh 2 puff(s) inhaled 2 times a day Active Spiriva Respimat 10 ACT 2.5 mcg/inh 2 puff(s) inhaled once a day Active Ventolin HFA 90 mcg/inh 2 puff(s) inhale d every 6 hours Active montelukast 10 mg 1 tab(s) orally once a day Active fenofibrate 160 mg 1 tab(s) orally once a day Active cyclobenzaprine 10 mg 1 tab(s) orally 3 times a day Active furosemide 40 mg/5 mL 5 mL orally once a day Active allopurinol 300 mg 1 tab(s) orally once a day Active pantoprazole 40 mg 1 tab(s) orally once a day Active Lyrica 100 mg 1 cap(s) orally 2 ti mes a day Active Trulicity Pen 4.5 mg/0.5 mL as directed subcutaneously once a week Active HumaLOG Active fluticasone furoate 100 mcg as directed inhaled every 24 hours Active Synthroid 175 mcg (0.175 mg) 1 tab(s) orally once a day Active multivitamin Vitamin B Complex 1 cap(s) orally once a day Active Fiber Tabs 625 mg 2 tab(s) orally 4 ti mes a day Active Calcium 500+D 500 mg-10 mcg 1 tab(s) howard wed 2 times a day Active Vitamin C 500 mg 1 tab(s) chewed once a day Active Vitamin D2 50,000 intl units 1 cap(s) orally once a week Active Iron 100 Plus Vitamin B Complex with C, Folic Acid and Iron 1 tab(s) orally once a day Active vitamin E 400 intl units 1 cap(s) orally once a day Active Vitamin B6 100 mg 1 tab(s) orally once a day Active Encounters Encounter Location Date Provider Diagnosis [facility] Office [address] [place] [address] [address] 08/18/2023 Vladimir Riggins Primary osteoarthrit is of left knee M17.12 Assessments Encounter Date Diagnosis (ICD Code) Assessment Notes Treatment Notes Treatment Clinical Notes Section Notes 08/18/2023 Primary osteoarthritis of left knee (ICD-10 - M17.12) Plan Of Treatment Pending Test Test Name Order Date RSS: KNEE LEFT LUCITA AP,LUCITA PA ,LEFT LAT,B [place] - [id number] 08/18/2023 Progress Notes * MARY JANE SCHAEFFER DDOB:[birth year] (54 yo F)Acc No.[id number]:08/18/2023 Patient: Carmelita MARY JANE VEGAS D Provider: Isabell Riggins MD :1970 A ge:53 Y S ex:Female Date:08/18/2023 Address:[address] [place] [address] [address] Pcp:Ann Rocha Subjective: * Chief Complaints: * 1 . RC LEFT KNEE ARTHRITIS. * Medical History: * Medications: T aking Cinnamon 500 mg capsule 2 cap(s) orally 2 times a day , Taking Acidophilus - capsule 1 cap(s) orally once a day , Taking Stool Softener with Laxative 50 mg- 8.6 mg tablet 2 tab(s) orally once a day (at bedtime) , Taking fexofenadine 180 mg tablet 1 tab(s) orally once a day , Taking biotin 39791 mcg capsule 1 cap(s) orally once a day , Taking Iron 100 Plus Vitamin B Complex with C, Folic Acid and Iron tablet 1 tab(s) orally once a day , Taking Vitamin B6 100 mg tablet 1 tab(s) orally once a day , Taking vitamin E 400 intl units capsule 1 cap(s) orally once a day , Taking Vitamin D2 50,000 intl units capsule 1 cap(s) orally once a week , Taking Vitamin C 500 mg tablet, chewable 1 tab(s) chewed once a day , Taking Calcium 500+D 500 mg-10 mcg tablet, chewable 1 tab(s) chewed 2 times a day , Taking Fiber Tabs 625 mg tablet 2 tab(s) orally 4 times a day , Taking multivitamin Vitamin B Complex capsule 1 cap(s) orally once a day , Taking fluticasone furoate 100 mcg powder as directed inhaled every 24 hours , Taking HumaLOG , Taking Trulicity Pen 4.5 mg/0.5 mL solution as directed subcutaneously once a week , Taking Lyrica 100 mg capsule 1 cap(s) orally 2 times a day , Taking Synthroid 175 mcg (0.175 mg) tablet 1 tab(s) orally once a day , Taking pantoprazole 40 mg delayed release tablet 1 tab(s) orally once a day , Taking fenofibrate 160 mg tablet 1 tab(s) orally once a day , Taking allopurinol 300 mg tablet 1 tab(s) orally once a day , Taking furosemide 40 mg/5 mL solution 5 mL orally once a day , Taking cyclobenzaprine 10 mg tablet 1 tab(s) orally 3 times a day , Taking Metoprolol Tartrate 50 mg tablet 1 tab(s) orally 2 times a day , Taking montelukast 10 mg tablet 1 tab(s) orally once a day , Taking Ventolin HFA 90 mcg/inh aerosol 2 puff(s) inhaled every 6 hours , Taking Spiriva Respimat 10 ACT 2.5 mcg/inh aerosol 2 puff(s) inhaled once a day , Taking Symbicort 160 mcg-4.5 mcg/inh aerosol 2 puff(s) inhaled 2 times a day Objective: * Vitals: Assessment: * Assessment: 1. P rimary osteoarthritis of left knee - M17.12 (Primary) Plan: * Treatment: * Procedure Codes: 7 3564 X-ray Knee, complete 4 views, 82563 X-ray Knee, 3 view Forms: * Images: * Electronic signature of Vladimir Riggins MD on 11/08/2024 at 01:49 PM EDT Sign off status: Pending * Provider: Isabell Riggins MD Date: 0 08/18/2023 Generated for Mark davis/Otilia/Adrianitting on: 0 11/08/2024 01:49 PM EDT
--- OUTSIDE RECORDS SUMMARY | 2024-10-29 00:04 | XMS_ITS | Continuity of Care Document ---
Author Organization [facility] Address [address] [place] [address] Phone Care Team Providers Care Hat Lining Paster Name Role Phone Ann Rocha Primary Care Provider Jorge Early PA-C Emergency Provider Munir Morelos DO Emergency Provider Troy Moya MD Attending Provider Kamran Chatterjee MD Attending Provider Care Teams Visit Care Team Team Status: Inactive Member Role Status Dates CAROLYN Fitzgerald Primary Care Provider Active Start: August 11, 2024 End: August 11, 2024 Jorge Early PA-C Emergency Provider Active Start: August 11, 2024 End: August 11, 2024 Visit Care Team Team Status: Inactive Member Role Status Dates CAROLYN Fitzgerald Primary Care Provider Active Start: August 21, 2024 End: August 21, 2024 Munir Morelos DO Emergency Provider Active Start: August 21, 2024 End: August 21, 2024 Visit Care Team Team Status: Active Member Role Status Dates CAROLYN Fitzgerald Primary Care Provider Active Start: September 07, 2024 Troy Moya MD Attending Provider Active Sta rt: September 07, 2024 Visit Care Team Team Status: Active Member Role Status Dates CAROLYN Fitzgerald Primary Care Provider Active Start: September 22, 2024 Anila Granados MD Attending Provider Active Start : September 22, 2024 Patient Care Team Team Status: Inactive Member Role Status Dates Kamran Chatterjee MD Attending Provider Active Sta rt: October 22, 2024 End: October 22, 2024 Chief Complaint and Reason for Visit Chief Complaint Admit Date wound on stomach August 11, 2024 5:1 7pm sore wound on stomach August 21, 2024 4 :22pm Open Wound September 07, 2024 10:1 2am Unknown October 22, 2024 2:10p m Reason for Visit Admit Date Chronic abdominal wound infection September 07, 2024 10:12am Multiple drug resistant organism (MDRO) culture positive September 07, 2024 10:12am Open abdominal wall wound September 07 10:12am Type 2 diabetes mellitus with diabetic c hronic kidney disease September 07, 2024 10:12am Allergies, Adverse Reactions, Alerts Allergen Type Severity Reaction Last Updated Verified Status adhesive Allergy Unknown Rash August 24, 2024 8:44am Yes Active azithromycin Allergy Unknown rash August 24, 2024 8:44am Yes Active cefprozil Allergy Unknown Hives August 24, 2024 8:44am Yes Active cephalexin Allergy Unknown Hives August 24, 2024 8:44am Yes Active Cephalosporins Allergy Unknown Hives July 8:44am Yes Active ciprofloxacin Allergy Unknown Hives August 24, 2024 8:44am Yes Active moxifloxacin Allergy Unknown Hives August 24, 2024 8:44am Yes Active oxycodone Allergy Unknown nausea August 24, 2024 8:44am Yes Active penicillamine Allergy Unknown anaphylaxis July 8:44am Yes Active Penicillins Allergy Unknown Anaphylaxis August 24, 2024 8:44am Yes Active soy Allergy Unknown anaphylaxis August 24, 2024 8:44am Yes Active sulfamethoxazole Allergy Unknown Anaphylaxis August 012024 8:44am Yes Active sulfanilamide Allergy Unknown Anaphylaxis July 8:44am Yes Active trimethoprim Allergy Unknown Anaphylaxis August 24, 2024 8:44am Yes Active doxycycline Allergy Unknown hives August 24, 2024 8:44am Yes Active acetaminophen Adverse Reaction Moderate Vomiting August 24, 2024 8:44am Yes Active aspirin Adverse Reaction Moderate Vomiting August 24, 2024 8:44am Yes Active BCise Allergy Unknown stomach upset March 9:12am No Active Foam Tape Allergy Unknown Rash March 30, 2024 9:12am No Active Social History Smoking Status Status Start Date End Date Date of Observa tion Never smoked tobacco (finding) September 07, 2024 10:42am Observation Status Observation Response Date of Response Patient Sex Female October 24, 2024 1 2:03am Assigned Sex Female 1970 Status Not August 11 Family History Relationship Condition Age at Onset Recorded Date/T earl father Heart disease Unknown Hypertension Unknown Diabetes mellitus Unknown Unknown grandparent Heart disease Unknown History of stroke Unknown Unknown grandparent Unknown Heart disease Unknown grandparent Motor vehicle accident Unknown Unknown grandparent Unknown Heart disease Unknown mother History of stroke Unknown Hypertension Unknown Heart disease Unknown Diabetes mellitus Unknown sister Family history of mental disorder Unknown Problems Active Problems Medical Problem Onset Date Status High vitamin D level Active Type 2 diabetes mellitus with diabetic chronic k idney disease Active Other acute postprocedural pain Active Infected wound Active CKD (chronic kidney disease) stage 3, GFR 30-59 ml/min Active Hypertensive chronic kidney disease with stage 1 through stage 4 chronic kidney disease, or unspecified chronic kidney disease Active Multiple drug resistant organism (MDRO) culture positive Active Hyperlipidemia Active Hypoparathyroidism Active Chronic abdominal wound infection Active Open abdominal wall wound Active Inactive/Resolved Problems Medical Problem Onset Date Status Encounter for wound re-check Res olved Visit for wound check Resolved Abscess Resolved Hyperglycemia Resolved Hyperuricemia Resolved Chronic abdominal wound infection Resolved Medications Medication Status Dose Units Route Directions Qty Days St art Date Stop Date End Date Instructions Metoprolol Tartrate 75 mg tablet Active 75 MG PO Twice daily Octobe r 2023 12:00a m Insulin Pump Cart,Cont Inf,Bt (Omnipod Dash Pods (Gen 4)) cartridge Active EACH SUBCUT Octobe r 2023 12:00a m Magnesium 200 mg tablet Active 400 MG PO Daily Octobe r 2023 12:00a m Meropenem 1 gram Recon Soln Discont inued 1 GM IV Q8H 63 21 Octobe r 2023 12:00a m Decem jamal 2023 11:32 am Hydrocodone- Acetaminophe n 5-325 mg Tablet Active 1 TAB PO Twice daily as needed for Pain 10 5 Octobe r 2023 Clopidogrel 75 mg tablet Active 75 MG PO Daily Decemb er 2023 1:00am Pregabalin (Lyrica) 100 mg capsule Active 100 MG PO Three times daily Decemb er 2023 1:00am Hydrocodone- Acetaminophe n 5-325 mg tablet Active 1 TAB PO Q6H as needed for pain 20 5 Decemb er 2023 Clindamycin Hcl 150 mg capsule Active 450 MG PO Three times daily 63 August 21, 2024 12:00a m Doxycycline Hyclate 100 mg capsule Discont inued 100 MG PO Twice daily 20 Marobe r 2023 12:00a m Octob er 2023 8:30p m Doxycycline Hyclate 100 mg tablet Active 100 MG PO Twice daily 20 August 11, 2024 12:00a m Dulaglutide (Trulicity) 4.5 mg/0.5 mL pen injector Active 4.5 MG SUBCUT every week October 09, 2023 12:00a m Dupilumab 300 mg/2 mL pen injector Active 300 MG SUBCUT EVERY 2 WEEKS October 09, 2023 12:00a m Vitamin E (Dl, Acetate) 180 mg (400 unit) capsule Active 1 CAP PO Daily October 09, 2023 12:00a m Cholecalcife rol (Vitamin D3) 50 mcg (2,000 unit) capsule Discont inued 1 CAP PO Daily October 09, 2023 12:00a m Octob er 2023 8:28p m FreeTextSi capsule Orally Once a day; Note: Source Status: Taking; Provider: Roberta High ( ) Budesonide-F ormoterol (Symbicort) 160-4.5 mcg/actuatio n HFA aerosol inhaler Active 2 PUFF INHALA TION Twice daily October 09, 2023 12:00a m Albuterol Sulfate (Ventolin Hfa) 90 mcg/actuatio n HFA aerosol inhaler Active 2 PUFF INHALA TION Every 4 hours as needed for shortness of breath or wheezing October 09, 2023 12:00a m Montelukast (Singulair) 10 mg tablet Active 1 TAB PO Daily October 09, 2023 12:00a m Zinc Gluconate 50 mg tablet Active 1 TAB PO Daily October 09, 2023 12:00a m Metoprolol Tartrate 50 mg tablet Discont inued 1 TAB PO Twice daily October 09, 2023 12:00a m Octob er 2023 8:34p m FreeTextSi tablet Orally Twice a day; Note: Source Status: Taking; Provider: Roberta High ( ) Triamcinolon e Acetonide 0.1 % ointment Active 1 APPLIC TOPICA L Daily as needed for skin irritation October 09, 2023 12:00a m Pantoprazole (Protonix) 40 mg tablet,delay ed release (DR/EC) Active 1 TAB PO Twice daily October 09, 2023 12:00a m Famotidine (Pepcid Ac) 20 mg tablet Active 20 MG PO Bedtime October 09, 2023 12:00a m Insulin Regular Hum U-500 Conc 500 unit/mL solution Active 200 UNIT SUBCUT Q3D as needed for Uses with omnipod October 09, 2023 12:00a m Fexofenadine 180 mg tablet Active 1 TAB PO Bedtime October 09, 2023 12:00a m Albuterol Sulfate 2.5 mg /3 mL (0.083 %) solution for nebulization Active 2.5 MG INHALA TION every 6 to 8 hours as needed for shortness of breath or wheezing October 09, 2023 12:00a m Levothyroxin e 175 mcg tablet Active 1 TAB PO Every morning October 09, 2023 12:00a m Pregabalin (Lyrica) 100 mg capsule Discont inued 100 MG PO Three times daily October 09, 2023 12:00a m Octob er 2023 12:00 pm Fenofibrate 160 mg tablet Active 160 MG PO Bedtime October 09, 2023 12:00a m Fluticasone Propionate 50 mcg/actuatio n spray,suspen osvaldo Active 2 SPRAY INTRAN RUTH Daily October 09, 2023 12:00a m Docusate Sodium 250 mg capsule Active 250 MG PO Daily October 09, 2023 12:00a m Allopurinol 300 mg tablet Active 1 TAB PO Daily October 09, 2023 12:00a m Biotin 10 mg tablet Active 1 TAB PO Daily October 09, 2023 12:00a m Furosemide (Lasix) 40 mg tablet Active 40 MG PO Twice daily October 09, 2023 12:00a m Cyclobenzapr ine 10 mg tablet Active 10 MG PO Daily at bedtime October 09, 2023 12:00a m Ferrous Sulfate (Feosol) 325 mg (65 mg iron) tablet Active 325 MG PO Daily October 09, 2023 12:00a m Saccharomyce s Boulardii (Daily Probiotic (S. Boulardii)) 250 mg capsule Active 250 MG PO Every morning October 09, 2023 12:00a m Owkbw-Jo-2-D av-Vdw-Glbko ho-Ast (Krill Oil) 1,000-170-50 -80 mg capsule Active 1 CAP PO Every evening October 09, 2023 12:00a m Polydextrose (Childrens Fiber Gummy Bear) 1.5 gram tablet,chewa ble Active 4 GM PO daily October 09, 2023 12:00a m Ascorbic Acid (Vitamin C) 250 mg tablet Active 250 MG PO Daily October 09, 2023 12:00a m Vitamin B Complex tablet Active 1 TAB PO Daily October 09, 2023 12:00a m Multivit-Min -Ferrous Sulfate (One Daily Multi-Vit W-Mineral) 4.5 mg iron tablet Active 1 TAB PO daily October 09, 2023 12:00a m Cinnamon Bark (Cinnamon) 500 mg capsule Active 500 MG PO .bid October 09, 2023 12:00a m Tramadol 50 mg tablet Discont inued 50 MG PO Every 8 hours as needed October 09, 2023 12:00a m Octob er 2023 8:27p m Procedures Procedure Date Performed Status Urine Culture October 22, [address] abdomen pelvis w con August 11, 2024 7:03pm completed Relevant Diagnostic Tests and/or Laboratory Data Laboratory Results Test Date/Time Result Interpretation Reference Range Result Comment Performing Site Urine Random Creatinine September 22, 2024 11:26am 138.55 mg/dL 20.00-300. 00 Parathyroid Hormone (Intact) September 22, 2024 11:45am 14 pg/mL Abnormal (applies to non-numeric results) 15- Performed at: - [facility] [id number] [place], [place] [id number] Director: Godwin Menjivar PhD, Phone: [phone] 25-Hydroxy Vitamin D Total September 22, 2024 11:45am 70.9 ng/mL <20 ng/mL Vit D [id number] <30 ng/mL Vit D insufficient 30-100 ng/mL Vit D sufficient>1 00 ng/mL Potential Toxicity Magnesium Level September 22, 2024 11:45am 2.0 mg/dL 1.8-2.4 Uric Acid September 22, 2024 11:45am 9.7 mg/dL Above high normal 2.6-6.0 Anion Gap September 22, 2024 11:45am 14.2 Hematocrit September 22, 2024 11:45am 36.1 % 36.0-48.0 Urine Protein/Creatinine Ratio September 22, 2024 11:26am 0.28 Albumin September 22, 2024 11:45am 3.6 g/dL 3.4-5.0 Hemoglobin September 22, 2024 11:45am 12.0 g/dL 12.0-16.0 Urine Random Total Protein September 22, 2024 11:26am 39.1 mg/dL Above high normal <=11.9 BUN/Creatinine Ratio September 22, 2024 11:45am 23.5 Mean Corpuscular Hemoglobin September 22, 2024 11:45am 30.6 pg 26.7-34.0 Blood Urea Nitrogen September 22, 2024 11:45am 32.0 mg/dL Above high normal 7.0-18.0 Mean Corpuscular Hemoglobin Concent September 22, 2024 11:45am 33.2 g/dL 29.9-35.2 Calcium Level September 22, 2024 11:45am 9.4 mg/dL 8.5-10.1 Mean Corpuscular Volume September 22, 2024 11:45am 92.1 fL 81.0-99.0 Chloride Level September 22, 2024 11:45am 108 mmol/L Above high normal 98-107 Mean Platelet Volume September 22, 2024 11:45am 11.5 fL 9.5-13.5 Carbon Dioxide Level September 22, 2024 11:45am 25.2 mmol/L 21.0-32.0 Platelet Count September 22, 2024 11:45am 205 10 3/uL 150-450 Creatinine September 22, 2024 11:45am 1.36 mg/dL Above high normal 0.55-1.02 Red Blood Count September 22, 2024 11:45am 3.92 10 6/uL Below low normal 4.20-5.40 Estimated GFR () September 22, 2024 11:45am 49 Below low normal >=60 mL/min/1.7 3m 2 Red Cell Distribution Width September 22, 2024 11:45am 13.9 % 11.0-15.0 Estimated GFR (Non- September 22, 2024 11:45am 40 Below low normal >=60 mL/min/1.7 3m 2 Corrected White Blood Count September 22, 2024 11:45am 5.9 10 3/uL 4.0-11.0 Glucose Level September 22, 2024 11:45am 102 mg/dL 74-106 Potassium Level September 22, 2024 11:45am 4.4 mmol/L 3.5-5.1 Sodium Level September 22, 2024 11:45am 143 mmol/L 136-145 Phosphorus Level September 22, 2024 11:45am 3.8 mg/dL 2.6-4.7 Corrected White Blood Count August 11, 2024 7:20pm 4.3 10*3/uL 3.8-11.6 [facility] [id number] [address] [facility] [address] Corrected White Blood Count August 21, 2024 5:00pm 5.0 10*3/uL 3.8-11.6 [facility] [id number] [address] [facility] [address] Uncorrected WBC Count August 11, 2024 7:20pm 4.3 10*3/uL 3.8-11.6 [facility] [id number] [address] [facility] [address] Uncorrected WBC Count August 21, 2024 5:00pm 5.0 10*3/uL 3.8-11.6 [facility] [id number] [address] [id number] Red Blood Count August 11, 2024 7:20pm 3.69 10*6/uL 3.60-5.00 [facility] [id number] [address] [facility] [address] Red Blood Count August 21, 2024 5:00pm 3.58 10*6/uL Below low normal 3.60-5.00 [facility] [id number] [address] [facility] [address] Hemoglobin August 11, 2024 7:20pm 11.3 g/dL Below low normal 11.8-15.4 [facility] [id number] [address] [facility] [address] Hemoglobin August 21, 2024 5:00pm 11.1 g/dL Below low normal 11.8-15.4 [facility] [id number] [address] [facility] [address] Hematocrit August 11, 2024 7:20pm 33.9 % Below low normal 34.0-46.4 [facility] [id number] [address] [facility] [address] Hematocrit August 21, 2024 5:00pm 33.0 % Below low normal 34.0-46.4 [facility] [id number] [address] [facility] [address] Mean Corpuscular Volume August 11, 2024 7:20pm 91.9 fL 80-100 [facility] [id number] [address] [facility] [address] Mean Corpuscular Volume August 21, 2024 5:00pm 92.1 fL 80-100 [facility] [id number] [address] [facility] [address] Mean Corpuscular Hemoglobin August 11, 2024 7:20pm 30.5 pg 24.7-34.3 [facility] [id number] [address] [facility] [address] Mean Corpuscular Hemoglobin August 21, 2024 5:00pm 30.9 pg 24.7-34.3 [facility] [id number] [address] [facility] [address] Mean Corpuscular Hemoglobin Concent August 11, 2024 7:20pm 33.2 g/dL 32.0-35.0 [facility] [id number] [address] [facility] [address] Mean Corpuscular Hemoglobin Concent August 21, 2024 5:00pm 33.6 g/dL 32.0-35.0 [facility] [id number] [address] [facility] [address] Red Cell Distribution Width August 11, 2024 7:20pm 14.5 % 11.9-15.3 [facility] [id number] [address] [place] [address] Red Cell Distribution Width August 21, 2024 5:00pm 14.3 % 11.9-15.3 [facility] [id number] [address] [place] [address] Platelet Count August 11, 2024 7:20pm 182 10*3/uL 150-450 [facility] [id number] [address] [place] [address] Platelet Count August 21, 2024 5:00pm 213 10*3/uL 150-450 [facility] [id number] [address] [place] [address] Mean Platelet Volume August 11, 2024 7:20pm 10.1 fL 6.3-10.7 [facility] [id number] [address] [place] [address] Mean Platelet Volume August 21, 2024 5:00pm 10.5 fL 6.3-10.7 [facility] [id number] [address] [place] [address] Monocyte Distribution Width August 11, 2024 7:20pm 19.33 % 0.00-20.00 [facility] [id number] [address] [facility] [address] Monocyte Distribution Width August 21, 2024 5:00pm 21.75 % Above high normal 0.00-20.00 For adults in ED, MDW > 20.0 may be associated with a higher risk of sepsis during the first 12 hrs of hospital admission [facility] [id number] [address] [place] [address] Neutrophils (%) (Auto) August 11, 2024 7:20pm 61.1 % . [facility] [id number] [address] [place] [address] Neutrophils (%) (Auto) August 21, 2024 5:00pm 55.1 % . [facility] [id number] [address] [facility] [address] Lymphocytes (%) (Auto) August 11, 2024 7:20pm 25.4 % . [facility] [id number] [address] [facility] [address] Lymphocytes (%) (Auto) August 21, 2024 5:00pm 27.9 % . [facility] [id number] [address] [facility] [address] Monocytes (%) (Auto) August 11, 2024 7:20pm 6.2 % . [facility] [id number] [address] [facility] [address] Monocytes (%) (Auto) August 21, 2024 5:00pm 8.8 % . [facility] [id number] [address] [facility] [address] Eosinophils (%) (Auto) August 11, 2024 7:20pm 6.9 % . [facility] [id number] [address] [facility] [address] Eosinophils (%) (Auto) August 21, 2024 5:00pm 7.5 % . [facility] [id number] [address] [facility] [address] Basophils (%) (Auto) August 11, 2024 7:20pm 0.4 % . [facility] [id number] [address] [facility] [address] Basophils (%) (Auto) August 21, 2024 5:00pm 0.7 % . [facility] [id number] [address] [facility] [address] Nucleated RBC Relative Count (auto) August 11, 2024 7:20pm 0.1 /100{WBC } 0-0.5 [facility] [id number] [address] [facility] [address] Nucleated RBC Relative Count (auto) August 21, 2024 5:00pm 0.1 /100{WBC } 0-0.5 [facility] [id number] [address] [facility] [address] Neutrophils # (Auto) August 11, 2024 7:20pm 2.6 10*3/uL 1.8-7.7 [facility] [id number] [address] [facility] [address] Neutrophils # (Auto) August 21, 2024 5:00pm 2.8 10*3/uL 1.8-7.7 [facility] [id number] [address] [facility] [address] Lymphocytes # (Auto) August 11, 2024 7:20pm 1.1 10*3/uL 1.00-4.8 [facility] [id number] [address] [facility] [address] Lymphocytes # (Auto) August 21, 2024 5:00pm 1.4 10*3/uL 1.00-4.8 [facility] [id number] [address] [place] [address] Monocytes # (Auto) August 11, 2024 7:20pm 0.3 10*3/uL 0.0-0.8 [facility] [id number] [address] [place] [address] Monocytes # (Auto) August 21, 2024 5:00pm 0.4 10*3/uL 0.0-0.8 [facility] [id number] [address] [place] [address] Eosinophils # (Auto) August 11, 2024 7:20pm 0.3 10*3/uL 0.0-0.45 [facility] [id number] [address] [place] [address] Eosinophils # (Auto) August 21, 2024 5:00pm 0.4 10*3/uL 0.0-0.45 [facility] [id number] [address] [place] [address] Basophils # (Auto) August 11, 2024 7:20pm 0.0 10*3/uL 0.0-0.2 [facility] [id number] [address] [place] [address] Basophils # (Auto) August 21, 2024 5:00pm 0.0 10*3/uL 0.0-0.2 [facility] [id number] [address] [place], [place] [address] Erythrocyte Sedimentation Rate August 11, 2024 7:20pm 82 mm/hr Above high normal 0-29 [facility] [id number] [address] [place] [address] Erythrocyte Sedimentation Rate August 21, 2024 5:00pm 57 mm/hr Above high normal 0-29 [facility] [id number] [address] [facility] [address] Glucose Level August 11, 2024 7:20pm 137 mg/dL Above high normal 70-100 ADA recommended reference rangeRandom Glucose Reference Range is dependent on time and content of last meal. Glucose of more than 200 mg/dL in a nonstressed, ambulatory subject supports the diagnosis of Diabetes Mellitus. [facility] [id number] [address] [facility] [address] Glucose Level August 21, 2024 5:00pm 78 mg/dL 70-100 ADA recommended reference rangeRandom Glucose Reference Range is dependent on time and content of last meal. Glucose of more than 200 mg/dL in a nonstressed, ambulatory subject supports the diagnosis of Diabetes Mellitus. [facility] [id number] [address] [facility] [address] Blood Urea Nitrogen August 11, 2024 7:20pm 68 mg/dL Above high normal 7-25 [facility] [id number] [address] [place] [address] Blood Urea Nitrogen August 21, 2024 5:00pm 31 mg/dL Above high normal 7-25 [facility] [id number] [address] [facility] [address] Creatinine August 11, 2024 7:20pm 1.81 mg/dL Above high normal 0.60-1.20 [facility] [id number] [address] [facility] [address] Creatinine August 21, 2024 5:00pm 1.77 mg/dL Above high normal 0.60-1.20 [facility] [id number] [address] [facility] [address] Estimated GFR (CKD-EPI) August 11, 2024 7:20pm 32.443 mL/Min [facility] [id number] [address] [facility] [address] Estimated GFR (CKD-EPI) August 21, 2024 5:00pm 33.324 mL/Min [facility] [id number] [address] [facility] [address] Sodium Level August 11, 2024 7:20pm 139 mmol/L 136-145 [facility] [id number] [address] [place] [address] Sodium Level August 21, 2024 5:00pm 140 mmol/L 136-145 [facility] [id number] [address] [facility] [address] Potassium Level August 11, 2024 7:20pm 4.3 mmol/L 3.5-5.1 [facility] [id number] [address] [place] [address] Potassium Level August 21, 2024 5:00pm 3.9 mmol/L 3.5-5.1 [facility] [id number] [address] [facility] [address] Chloride Level August 11, 2024 7:20pm 107 mmol/L 98-107 [facility] [id number] [address] [facility] [address] Chloride Level August 21, 2024 5:00pm 109 mmol/L Above high normal 98-107 [facility] [id number] [address] [facility] [address] Carbon Dioxide Level August 11, 2024 7:20pm 24.7 mmol/L 21.0-31.0 [facility] [id number] [address] [place] [address] Carbon Dioxide Level August 21, 2024 5:00pm 22.2 mmol/L 21.0-31.0 [facility] [id number] [address] [place] [address] Anion Gap August 11, 2024 7:20pm 11.6 mEq/L 6.0-15.0 [facility] [id number] [address] [place] [address] Anion Gap August 21, 2024 5:00pm 12.7 mEq/L 6.0-15.0 [facility] [id number] [address] [place] [address] Calcium Level August 11, 2024 7:20pm 10.2 mg/dL 8.6-10.3 [facility] [id number] [address] [place] [address] Calcium Level August 21, 2024 5:00pm 8.9 mg/dL 8.6-10.3 [facility] [id number] [address] [facility] [address] Total Protein August 11, 2024 7:20pm 7.5 g/dL 6.4-8.9 [facility] [id number] [address] [facility] [address] Total Protein August 21, 2024 5:00pm 6.8 g/dL 6.4-8.9 [facility] [id number] [address] [facility] [address] Albumin August 11, 2024 7:20pm 4.1 g/dL 3.5-5.7 [facility] [id number] [address] [facility] [address] Albumin August 21, 2024 5:00pm 3.9 g/dL 3.5-5.7 [facility] [id number] [address] [facility] [address] Globulin August 11, 2024 7:20pm 3.4 g/dL [facility] [id number] [address] [facility] [address] Globulin August 21, 2024 5:00pm 2.9 g/dL [facility] [id number] [address] [facility] [address] Albumin/Globulin Ratio August 11, 2024 7:20pm 1.2 [facility] [id number] [address] [facility] [address] Albumin/Globulin Ratio August 21, 2024 5:00pm 1.3 [facility] [id number] [address] [facility] [address] Total Bilirubin August 11, 2024 7:20pm 0.4 mg/dL 0.3-1.0 [facility] [id number] [address] [facility] [address] Total Bilirubin August 21, 2024 5:00pm 0.3 mg/dL 0.3-1.0 [facility] [id number] [address] [place] [address] Direct Bilirubin August 11, 2024 7:20pm 0.00 mg/dL Below low normal 0.03-0.18 If the DBIL is less than 0.1, IBIL is not able to becalculated . [facility] [id number] [address] [facility] [address] Indirect Bilirubin August 11, 2024 7:20pm 0.4 mg/dL [facility] [id number] [address] [place] [address] Aspartate Amino Transf (AST/SGOT) August 11, 2024 7:20pm 19 U/L 13-39 [facility] [id number] [address] [facility] [address] Aspartate Amino Transf (AST/SGOT) August 21, 2024 5:00pm 21 U/L 13-39 [facility] [id number] [address] [facility] [address] Alanine Aminotransferase (ALT/SGPT) August 11, 2024 7:20pm 11 U/L 7-52 [facility] [id number] [address] [facility] [address] Alanine Aminotransferase (ALT/SGPT) August 21, 2024 5:00pm 13 U/L 7-52 [facility] [id number] [address] [facility] [address] Alkaline Phosphatase August 11, 2024 7:20pm 50 U/L 34-104 [facility] [id number] [address] [place] [address] Alkaline Phosphatase August 21, 2024 5:00pm 55 U/L 34-104 [facility] [id number] [address] [facility] [address] C-Reactive Protein, Quantitative August 11, 2024 7:20pm 3.5 mg/dL Above high normal 0.0-0.5 [facility] [id number] [address] [place] [address] C-Reactive Protein, Quantitative August 21, 2024 5:00pm < 0.5 mg/dL 0.0-0.5 [facility] [id number] [address] [facility] [address] Pharmacy Creatinine Clearance (Chem August 11, 2024 7:20pm 41.52 [facility] [id number] [address] [place] [address] Pharmacy Creatinine Clearance (Chem August 21, 2024 5:00pm 43.25 [facility] [id number] [address] [place] [address] Bedside Glucose August 11, 2024 8:21pm 99 mg/dL Random Glucose Reference Range is dependent on time and content of last meal. Glucose of more than 200 mg/dL in a nonstressed, ambulatory subject supports the diagnosis of Diabetes Mellitus. Point of Care testing Diagnostic Imaging Reports Author Mihai Jackson [facility] Authored August 11, 2024 8:5 2pm Report Dictated Date/Time Dictated By Status Radiology Report August 11, 2024 8:52pm Mihai hwang , DO completed [facility] Main [place] [address] [place] [address] CT Scan Report Signed Patient: Amadou Suarez MR#: [id number] : 1970 Acct:[id number] Age/Sex: 54 / F ADM Date: 5 Loc: ER Room: Type: [facility] ER Attending Dr: Copies to: Jorge Early PA-C~ Ordering Provider: Jorge Early PA-C Date of [...] Mihai Jackson M.D.08/11/2024 9:01 PM Dictation Location: [place] [address] Transcribed By: BRITT 08/11/242100 Dictated By: Mihai Jackson DO 08/11/242051 Signed By: <Electronically signed by Mihai Jackson DO in OV> 08/11/242100 Vital Signs Vital Reading Result Reference Range Collection Date/Time Height 62 [in_i] August 11 5:34pm Weight 114.30 kg August 11 5:34pm Body Temperature 98.1 [degF] 97.6-99.0 August 11, 2024 5:34pm Heart Rate 76 /min 60-100 August 11 8:58pm Respiratory rate 16 /min -August 11, 2024 8:58pm Oxygen saturation by Pulse oximetry 96 % 95-100 August 11, 2024 8:5 8pm BP Systolic 136 mm[Hg] 100-140 August 11 8:58pm BP Diastolic 54 mm[Hg] 60-100 August 11 8:58pm Height 62 [in_i] August 21 4:33pm Weight 117.85 kg August 21 4:33pm Body Temperature 97.9 [degF] 97.6-99.0 August 21, 2024 4:33pm Heart Rate 69 /min 60-100 August 21 6:54pm Respiratory rate 18 /min -August 21, 2024 6:54pm Oxygen saturation by Pulse oximetry 96 % 95-100 August 21, 2024 6:5 4pm BP Systolic 139 mm[Hg] 100-140 August 21 6:54pm BP Diastolic 64 mm[Hg] 60-100 August 21 6:54pm Height 62 [in_i] September 07, 2024 10:42am Weight 117.02 kg September 07, 2024 10:42am Body Temperature 99.0 [degF] 97.6-99.0 September 07, 2024 10:15am Heart Rate 82 /min 60-100 September 07, 2024 10:15am Respiratory rate 18 /min -September 07, 2024 10:15am BP Systolic 153 mm[Hg] 100-140 September 07, 2024 10:15am BP Diastolic 58 mm[Hg] 60-100 September 07, 2024 10:15am BMI (Body Mass Index) 47.2 kg/m2 September 07, 2024 10:42am Advance Directives Advance Directive Response Recorded Date/ Time Advance Directives No November 13 8:11am Insurance Providers Guarantor AuthDanii Castillo Address [address] [place] [address] [address] [facility] [address] Contact Info. Home Phone: Payer Policy Id Coverage Id Subscriber's Name Subscriber Id Effective Date Expiration Date Medicaid [id number] Danii Allen [id number] [employer] [id number] AuthDanii Castillo [id number] [facility] P[facility]S [id number] Danii Allen [id number] Encounters Encounter Location(s) Arrival/Admit Date Discharge /Depart Date Provider(s) Departed Emergency [facility]Emergency Room August 11, 2024 5:17pm August 11, 2024 10:31pm null Departed Emergency [facility]-Emergency Room August 21, 2024 4:22pm August 21, 2024 7:00pm null Registered Recurring [facility]-Wound Care David September 07, 2024 10:12am Troy Carr MD Non-patient / Non-visit [facility] September 22, 2024 11:45am Anila Granados MD Departed Referred [facility]-LAB [facility] October 22, 2024 2:10pm October 22, 2024 2:11pm Yumiko Li MD Recent Diagnosis Onset Date Admit Date Chronic abdominal wound infection September 07, 2024 10:12am 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 September 07, 2024 10:12am Open abdominal wall wound September 07, 2024 10:12am 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 disease September 07, 2024 10:12am Assessments Diagnosis Onset Date Resolution Status Admit Date Chronic abdominal wound infection acute September 07, 2024 10:12am 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 acute August 10:12am Open abdominal wall wound acute September 07, 2024 10:12am 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 disease acute September 07, 2024 10:12am Plan of Treatment Future Tests Future scheduled test information is unavailable Pending Tests Pending diagnostic test information is unavailable Future Visits Future appointment information is unavailable Referrals to Other Providers Reason for Referral Referral Start Date Provider Provider Contact Information Provider Address Ann Rocha CNP Work Phone: [employer] [facility] [address] [facility] [address] Ann Rocha CNP Work Phone: [employer] [facility] [address] [facility] [address] Future Procedures Procedure Name Ordered Date Scheduled Date Urine Culture October 23, 2024 1:18pm October 22, 2024 2:10pm Future Medications Future medication information is unavailable Patient Instructions Instruction Admit Date Wound care - ED discharge instructions marcello 2024 5:17pm Wound care - ED discharge instructions [facility] 2024 4:22pm
[2024-11-08] VITALS (42 sets, daily range): BP systolic 160–202; BP diastolic 60–89; PULSE 59–113; TEMP 36.3–36.6; O2SAT 90–98; BMI 48.5; BMI 50.5
--- OUTSIDE RECORDS SUMMARY | 2024-11-08 13:49 | XMS_ITS | Patient Health Record ---
Author Organization [facility] Address [address] [place] [address] Care Team Providers Care Bridge Manager Name Role Phone Ann Rocha Primary Care Provider Vladimir Hurt Unavailable [phone] Allergies Allergen (clinical drug ingredient) Drug/Non Drug [...] inhaled 2 times a day Active biotin 70277 mcg 1 cap(s) orally once a day [...] Problem Status W/U Status Risk Notes Problem [id number] Primary osteoarthritis of left knee (M17.12) Active confirmed Problem [id number] Left knee pain, unspecified chronicity (M25.562) Active confirmed Problem [id number] Diabetes mellitu s of other type without complication, unspecified whether long lines operator insulin use (E13.9) Active confirmed Plan Of Treatment Pending Test Test Name Order Date Hgb A1c 08/13/2023 Insurance Providers Payer Name Payer Address Payer Phone Subscriber Number Group Number Insured Name Patient Relationship to Insured Coverage Start Date Coverage End Date Medicare [employer] [address] [place] [address] [id number] MARY JANE CORREA Self - patient is the insured [facility] of Medicaid [address] [place] [address] [id number] MARY JANE CORREA Self - patient is [...]
--- NOTE | 2024-11-08 13:59 | XR_ITS ---
[place] [id number] Patient Name: MARY JANE SANTOS MRN: [id number] date: 1970 Sex: F Assigned Patient Location: ER Current Patient Location: ER Accession/Order Number: [id number] Exam Date: 11/08/2024 14:39 Report Date: 11/08/2024 14:40 At the request of: VICKEY JOSEPH MD Procedure: XR chest 1V Plain film chest Single view HISTORY: Acute shortness of breath for 2 days duration. Right lower extremity swelling. COMPARISON: 10/21/2024 FINDINGS: SUPPORT DEVICES: None POSTSURGICAL CHANGES: None HEART: Cardiomegaly PULMONARY PAM: Hilar vascular congestion MEDIASTINUM: Unremarkable LUNGS AND PLEURA: Perihilar and basilar groundglass parenchymal densities. Basilar pleural reactions. BONY STRUCTURES: Intact ADDITIONAL FINDINGS None XR/XR chest 1V IMPRESSION: CHF findings a small pleural effusions. Impression dictated by: Vickey Jackson M.D. 11/08/2024 2:40 PM Dictation Location: [place] [address] Electronically authenticated by: [id number] Y Date: 11/08/2024 14:40
--- NOTE | 2024-11-08 13:59 | ECG_ITS ---
[facility] Test Date: 2024-11-08 Pat Name: MARY JANE [facility] Department: Room: - Gender: Female Bill Checker: : 1970 Requested By: [id number] Order Number: [id number] Reading MD: NANDA KAUR M.D. Measurements Intervals Carver Rate: 104 P: 52 MS: 148 QRS: 97 QRSD: 76 T: 49 QT: 340 QTc: 401 Interpretive Statements 1120 Sinus tachycardia 7102 Moderate right axis deviation 9140 abnormal rhythm ECG Compared to ECG 10/22/2024 11:19:58 Right-axis deviation now present Sinus rhythm no longer present Poor R-wave progression no longer present Electronically Signed On 11-08-2024 21:53:58 EDT by NANDA KAUR M.D.
--- NOTE | 2024-11-08 14:18 | ED.GENADUL1 ---
HPI HPI - General Adult General Chief complaint: Shortness of Breath/Dyspnea Stated complaint: SOB Time Seen by Provider: 11/08/24 14:17 Source: patient Mode of arrival: ambulance Limitations: no limitations History of Present Illness HPI narrative: Patient is a 54-year-old female who is presenting to the ER with chief complaint of shortness of breath, hypoxia. Patient was 85% on room air at home noted by EMS. Patient came in on 5 L of nasal cannula at 97%. Patient has a history of asthma. Patient has history of morbid obesity. Patient's fur remodeler is Dr. Viveros. All systems are negative except as noted/marked. All systems reviewed and otherwise negative. Nurses note and vital signs reviewed and patient is not hypoxic. General: The patient appears well and in no apparent distress. Patient is resting comfortably on cart. Patient is not toxic, lethargic, or listless Skin: Warm, dry, no pallor noted. There is no rash noted. No petechiae, purpura. Head: Normocephalic, atraumatic Eye: Normal conjunctiva, no drainage, EOMI. PERRL Ears, Nose, Mouth, and Throat: oral mucosa is moist. Nares patent. Mouth without vesicles. Cardiovascular: Regular Rate and Rhythm, no murmur, gallop, rub Respiratory: Patient is in no distress, no accessory muscle use, lungs are clear to auscultation, no wheezing, rales or rhonchi Back: non-tender, no CVA tenderness bilaterally to percussion. No CT LS midline pain GI: no tenderness to palpation, no masses appreciated. No rebound, guarding, or rigidity noted. No distention Musculoskeletal: Patient has full range of motion of all of the extremities, no motor, sensory, or focal neurological deficits Neurological: A&O x4, normal speech Psychiatric: Cooperative Related Data Home Medications ?Medication ?Instructions ?Recorded ?Confirmed dulaglutide 4.5 mg/0.5 mL 4.5 mg subcut QWEEK 08/26/23 11/08/24 subcutaneous [facility] fenofibrate 160 mg tablet 160 mg PO DAILY 08/26/23 11/08/24 fluticasone propionate 50 1 spray intranasal DAILY PRN nasal 08/26/23 11/08/24 mcg/actuation nasal congestion spray,suspension (Flonase Allergy Relief) insulin regular hum U-500 conc 500 150 unit subcut QPM 08/26/23 10/21/24 unit/mL subcutaneous soln (Humulin R U-500 (Concentrated) Insulin) levothyroxine 175 mcg capsule 150 mcg PO DAILY 08/26/23 11/08/24 nystatin 100,000 unit/gram topical 1 applic topical DAILY PRN rash 08/26/23 11/08/24 cream pantoprazole 40 mg tablet,delayed 40 mg PO BID 08/26/23 11/08/24 release (Protonix) clopidogrel 75 mg tablet 75 mg PO DAILY 10/06/24 11/08/24 lisinopril 10 mg tablet 10 mg PO DAILY 10/06/24 11/08/24 pregabalin 100 mg capsule (Lyrica) 100 mg PO TID 10/06/24 11/08/24 evolocumab 140 mg/mL subcutaneous 140 mg subcut .Q2WKS 10/21/24 11/08/24 pen injector (Repatha SureClick) insulin pump cart,cont inf,BT 10/21/24 10/21/24 (Omnipod Dash Pods (Gen 4) subcutaneous cartridge) metoprolol tartrate 100 mg tablet 100 mg PO BID 10/21/24 11/08/24 Allergies Allergy/AdvReac Type Severity Reaction Status Date / Time azithromycin Allergy Severe Hives Verified 10/06/24 12:35 cephalexin Allergy Severe Hives Verified 10/06/24 12:35 ciprofloxacin Allergy Severe Hives Verified 10/06/24 12:35 doxycycline Allergy Severe Hives Verified 10/21/24 15:00 Penicillins Allergy Severe Anaphylaxis Verified 10/06/24 12:35 sulfamethoxazole Allergy Severe Anaphylaxis Verified 10/06/24 12:35 sulfanilamide Allergy Severe Anaphylaxis Verified 10/06/24 12:35 trimethoprim Allergy Severe Anaphylaxis Verified 10/06/24 12:35 acetaminophen (From Percocet) AdvReac Severe Vomiting Verified 10/06/24 12:35 aspirin AdvReac Severe Vomiting Verified 10/06/24 12:35 cefprozil (From Cefzil) AdvReac Severe Hives Verified 10/06/24 12:35 moxifloxacin (From Avelox) AdvReac Severe Hives Verified 10/06/24 12:35 oxycodone (From Percocet) AdvReac Severe Vomiting Verified 10/06/24 12:35 Opioid HPI Opioid Management Most Recent Opioid Data: Last Pain Scale 4 Today, 19:54 Last Pain Assessment Today, 19:54 Last ORT Total Score 0 Today, 18:37 Last ORT Risk Category Low Risk Today, 18:37 PFSH [facility] Medical History (Updated 11/08/24 @ 20:24 by Mihai Godoy MD) Left lower lobe pneumonia ?J18.9 - Pneumonia, unspecified organism (ICD-10) Musculoskeletal back pain ?M54.9 - Dorsalgia, unspecified (ICD-10) Fall ?W19.XXXA - Unspecified fall, initial encounter (ICD-10) Concussion ?S06.0XAA - Concussion with loss of consciousness status unknown, initial encounter (ICD-10) Obesity ?E66.9 - Obesity, unspecified (ICD-10) Delayed recovery from anesthesia Postoperative nausea and vomiting ?R11.2 - Nausea with vomiting, unspecified (ICD-10) ?Z98.890 - Other specified postprocedural states (ICD-10) Dysphagia ?R13.10 - Dysphagia, unspecified (ICD-10) Ovarian cancer ?C56.9 - Malignant neoplasm of unspecified ovary (ICD-10) Osteoarthritis ?M19.90 - Unspecified osteoarthritis, unspecified site (ICD-10) Nerve damage of right foot ?G57.91 - Unspecified mononeuropathy of right lower limb (ICD-10) Nerve damage of left foot ?G57.92 - Unspecified mononeuropathy of left lower limb (ICD-10) Hypothyroidism ?E03.9 - Hypothyroidism, unspecified (ICD-10) Hypertension ?I10 - Essential (primary) hypertension (ICD-10) High cholesterol ?E78.00 - Pure hypercholesterolemia, unspecified (ICD-10) Herniation of right side of L4-L5 intervertebral disc ?M51.26 - Other intervertebral disc displacement, lumbar region (ICD-10) GI problem ?R19.8 - Other specified symptoms and signs involving the digestive system and abdomen (ICD-10) Diabetes 1.5, managed as type 2 ?E13.9 - Other specified diabetes mellitus without complications (ICD-10) Asthma ?J45.909 - Unspecified asthma, uncomplicated (ICD-10) Anemia ?D64.9 - Anemia, unspecified (ICD-10) Surgical History H/O: hysterectomy ?Z90.710 - Acquired absence of both cervix and uterus (ICD-10) Hx of tonsillectomy ?Z90.89 - Acquired absence of other organs (ICD-10) Total knee replacement status ?Z96.659 - Presence of unspecified artificial knee joint (ICD-10) S/P surgery on nasal septum ?Z98.890 - Other specified postprocedural states (ICD-10) History of arthroscopic knee surgery ?Z98.890 - Other specified postprocedural states (ICD-10) History of discectomy ?Z98.890 - Other specified postprocedural states (ICD-10) History of cholecystectomy ?Z90.49 - Acquired absence of other specified parts of digestive tract (ICD-10) History of appendectomy ?Z90.49 - Acquired absence of other specified parts of digestive tract (ICD-10) Family History (Updated 08/27/23 @ 13:[address] RN) Mother Arthritis Asthma Family history of hypertension Hyperlipidemia Family history of stroke Father Arthritis Family history of diabetes mellitus Family history of hypertension Alzheimer's disease Other Family history of cancer Social History (Updated 08/27/23 @ 13:[address], RIGOBERTO) Within the past year, how often did you have a drink containing alcohol: never Score interpretation: A score less than 3 is consistent with normal alcohol consumption. Smoking status: Never smoker Second hand tobacco smoke exposure: No Non-prescribed substance use: denies use Previous occupational history: disability Highest level of school completed/degree received: high school graduate Little interest or pleasure in doing things: not at all Feeling down, depressed, or hopeless: not at all Exam Constitutional Vital Signs, click to edit/add: Last Vital Signs Temp 97.4 F L 11/08/24 19:54 Pulse 95 H 11/08/24 20:00 Resp 22 H 11/08/24 19:54 BP 167/85 H 11/08/24 19:54 Pulse Ox 92 L 11/08/24 19:54 O2 Del Method Nasal Cannula 11/08/24 19:54 O2 Flow Rate 2 11/08/24 19:54 Course Vital Signs Vital signs: Vital Signs Pulse Rate 104 H 11/08/24 13:45 Respiratory Rate 30 H 11/08/24 13:45 Pulse Oximetry 97 11/08/24 13:45 Temperature 97.4 F L 11/08/24 19:54 Pulse Rate 95 H 11/08/24 20:00 Respiratory Rate 22 H 11/08/24 19:54 Blood Pressure 167/85 H 11/08/24 19:54 Pulse Oximetry 92 L 11/08/24 19:54 Oxygen Delivery Method Nasal Cannula 11/08/24 19:54 Oxygen Delivery Flow Rate 2 11/08/24 19:54 Medical Decision Making MDM Narrative Medical decision making narrative: Patient seen and examined: Patient have cardiac/shortness of breath testing done Differential diagnosis includes but is not limited to: Pneumonia, CHF, pneumothorax, pleural effusions, [place], ACS, dehydration, anemia, electrolyte abnormality Diagnostics and management: Patient will have laboratory studies Relevant laboratory interpretation: Patient had white blood cell count of 6.8, hemoglobin and hematocrit of 8.7/27. Patient is in his blood gas was 7.34, potassium 6, BUN and creatinine of 29/1.56. Glucose 536, lactic 1.6. Magnesium 1.9. Troponin 29, being atretic peptide 1937. Radiological studies: Please see the formal radiological report. Chest x-ray initially looked like bilateral pneumonia/infiltrate versus possible CHF versus possible early ards Reevaluation: Patient did feel slightly better after DuoNeb breathing treatments. Shared decision making: I discussed with the patient the necessary laboratory findings and radiological findings. Social barriers to healthcare: There are no food insecurities, there is no issue with transportation, there are no insurance barriers. Disposition: I discussed with the patient with Dr. Viveros. Patient has multiple allergies. 2 antibiotics given in the ER were discussed and recommended by Dr. Viveros. Patient saw Dr. Viveros in the ER, he came to see and evaluate the patient. He will be in consultation. Patient will be admitted to Dr. Chase because patient sees Ann Zavala as a nurse practitioner. Dr CHASE came to see and evaluate the patient after his office hours as well and will be placing orders. Lab Data Labs: Lab Results 11/08/24 Range/Units 13:55 WBC 6.8 (4.0-11.0) 10^3/uL RBC 2.81 L (4.20-5.40) 10^6/uL Hgb 8.7 L (12.0-16.0) g/dL Hct 27.4 L (36.0-48.0) % MCV 97.5 (81.0-99.0) fL MCH 31.0 (26.7-34.0) pg MCHC 31.8 (29.9-35.2) g/dL RDW 15.0 (11.0-15.0) % Plt Count 159 (150-450) 10^3/uL MPV 12.0 (9.5-13.5) fL Neut % (Auto) 82.2 H (43.0-75.0) % Lymph % (Auto) 10.8 L (20.5-60.0) % [place] % (Auto) 5.2 (1.7-12.0) % Eos % (Auto) 0.9 (0.9-7.0) % Baso % (Auto) 0.3 (0.2-2.0) % Neut # (Auto) 5.6 (1.4-6.5) 10^3/uL Lymph # (Auto) 0.7 L (1.2-3.8) 10^3/uL [place] # (Auto) 0.4 (0.3-0.8) 10^3/uL Eos # (Auto) 0.1 (0.0-0.7) 10^3/uL Baso # (Auto) 0.0 (0.0-0.1) 10^3/uL Abs Immat Gran (auto) 0.04 H (0.00-0.03) 10^3/uL Imm/Tot Granulo (auto) 0.6 H (0.0-0.5) % PT 11.0 (9.0-11.6) sec INR 1.04 VBG pH 7.342 (7.330-7.430) VBG pCO2 33.1 L (40.0-52.0) mmHg Sodium 141 (136-145) mmol/L Potassium 6.0 H (3.5-5.1) mmol/L Chloride 107 (98-107) mmol/L Carbon Dioxide 21.5 (21.0-32.0) mmol/L Anion Gap 18.5 BUN 29.0 H (7.0-18.0) mg/dL Creatinine 1.56 H (0.55-1.02) mg/dL Est GFR ( Amer) 42 L (>=60 mL/min/1.73m^2) Est GFR (Non-Af Amer) 34 L (>=60 mL/min/1.73m^2) BUN/Creatinine Ratio 18.6 Glucose 536 H* (74-106) mg/dL Lactate 1.6 (0.4-2.0) mmol/L Calcium 9.4 (8.5-10.1) mg/dL Magnesium 1.9 (1.8-2.4) mg/dL Total Bilirubin 0.6 (0.2-1.0) mg/dL AST 23 (15-37) U/L ALT 27 (14-59) U/L Alkaline Phosphatase 66 (46-116) U/L Troponin I High Sens 30.2 (4.0-51.3) pg/mL NT-Pro-B Natriuret Pep 1937.0 H* (<=900.0) pg/mL Total Protein 6.7 (6.4-8.2) g/dL Albumin 3.2 L (3.4-5.0) g/dL Globulin 3.5 g/dL Albumin/Globulin Ratio 0.9 ECG Data Attestation: I personally reviewed and interpreted this ECG as follows: (EKG interpretation. Sinus tachycardia at 104. Normal axis deviation. No acute ST elevation, no acute ectopy. QTc of 401.) Discharge Plan Discharge Chief Complaint: Shortness of Breath/Dyspnea Clinical Impression: Multifocal pneumonia, Hypoxia, Hyperkalemia Patient Disposition: Admitted As Inpatient Time of Disposition Decision: 18:14 Discharge Date/Time: 11/08/24 18:15
[2024-11-08 14:20] LABS: pH VBG 7.342 (7.330-7.430)
[2024-11-08 14:21] LABS: PCO2 VBG 33.1 mmHg (40.0-52.0)
[2024-11-08 14:22] LABS: Basophils Percent Auto 0.3 % (0.2-2.0); Eosinophils Absolute Auto 0.1 10^3/uL (0.0-0.7); Eosinophils Percent Auto 0.9 % (0.9-7.0); Hematocrit 27.4 % (36.0-48.0); Hemoglobin 8.7 g/dL (12.0-16.0); Immature Granulocytes Abs Auto 0.04 10^3/uL (0.00-0.03); Immature Granulocytes Pct Auto 0.6 % (0.0-0.5); Lymphocytes Absolute Auto 0.7 10^3/uL (1.2-3.8); Lymphocytes Percent Auto 10.8 % (20.5-60.0); Mean Corpuscular HGB Conc 31.8 g/dL (29.9-35.2); Mean Corpuscular Volume 97.5 fL (81.0-99.0); Monocytes Absolute Auto 0.4 10^3/uL (0.3-0.8); Monocytes Percent Auto 5.2 % (1.7-12.0); Neutrophils Absolute Auto 5.6 10^3/uL (1.4-6.5); Neutrophils Percent Auto 82.2 % (43.0-75.0); Platelet Count 159 10^3/uL (150-450); Red Blood Count 2.81 10^6/uL (4.20-5.40); White Blood Count 6.8 10^3/uL (4.0-11.0)
[2024-11-08] MEDS: IPRATROPIUM/ALBUTEROL SULFATE 3 ML AMPUL.NEB IH (14:34)
[2024-11-08 14:37] LABS: INR 1.04
[2024-11-08 14:43] LABS: Lactate/Lactic Acid 1.6 mmol/L (0.4-2.0)
[2024-11-08 14:44] LABS: Magnesium 1.9 mg/dL (1.8-2.4); Troponin I High Sensitivity 30.2 pg/mL (4.0-51.3)
[2024-11-08] MEDS: LACTATED RINGER'S SOLUTION 1,000 ML 1000 ML IV (14:44)
[2024-11-08] MEDS: METHYLPREDNISOLONE SOD SUCC PF 125 MG/2 ML VIAL IVP (14:44)
[2024-11-08 14:50] LABS: Alanine Aminotransferase 27 U/L (14-59); Albumin Globulin Ratio 0.9; Albumin Level 3.2 g/dL (3.4-5.0); Alkaline Phosphatase 66 U/L (46-116); Anion Gap 18.5; Aspartate Amino Transferase 23 U/L (15-37); BUN Creatinine Ratio 18.6; Bilirubin Total 0.6 mg/dL (0.2-1.0); Calcium 9.4 mg/dL (8.5-10.1); Carbon Dioxide 21.5 mmol/L (21.0-32.0); Chloride 107 mmol/L (98-107); Estimated GFR (African America 42 (>=60 mL/min/1.73m^2); Estimated GFR (Non-African Ame 34 (>=60 mL/min/1.73m^2); Globulin 3.5 g/dL; Sodium 141 mmol/L (136-145); Total Protein 6.7 g/dL (6.4-8.2)
[2024-11-08 14:52] LABS: Glucose 536 mg/dL (74-106)
[2024-11-08] MEDS: VANCOMYCIN HCL 1,750 MG in 0.9 % SODIUM CHLORIDE 500 ML 250 MG IV (16:19)
--- NOTE | 2024-11-08 16:27 | PM.PLCN ---
History of Present Illness History of Present Illness Consult date: 11/08/24 Requesting physician: Mihai Godoy Reason for consult: pneumonia Chief complaint: SOB Narrative: 54yo female, well known to me, presents to [facility] ER with SOB. She is established with me outpatient with a diagnosis of severe asthma. She has not been seen outpatient by me since 09/24/2023 d/t ongoing illness. She had an appointment on 11/10/2024 to see me, but contacted the office today and left a message that she was cancelling it as she was going to the ER - she had conversational dyspnea. Upon arrival to the ER, SpO2 was 85% on RA. CTA chest revealed multifocal pneumonia and bilateral pleural effusions. Of note, she was treated for pneumonia on 10/22/2024, and prior to that, was admitted to [facility] with NSTEMI - discharge summary from 10/11/2024 was reviewed, was on Rocephin + doxycycline d/t multiple drug allergies. She states her breathing has been doing poorly over the past year ever since she got bit by a spider on her left lower abdomen, with issues involved in wound healing since. She remains on Symbicort + Spiriva outpatient, but has not been using any additional albuterol treatments. She complains of increased BLE edema. Review of Systems ROS Status of ROS 10 or more systems reviewed and unremarkable except as noted in history and below [facility] Medical History (Updated 11/08/24 @ 16:07 by Mihai Godoy MD) Left lower lobe pneumonia ?J18.9 - Pneumonia, unspecified organism (ICD-10) Musculoskeletal back pain ?M54.9 - Dorsalgia, unspecified (ICD-10) Fall ?W19.XXXA - Unspecified fall, initial encounter (ICD-10) Concussion ?S06.0XAA - Concussion with loss of consciousness status unknown, initial encounter (ICD-10) Obesity ?E66.9 - Obesity, unspecified (ICD-10) Delayed recovery from anesthesia Postoperative nausea and vomiting ?R11.2 - Nausea with vomiting, unspecified (ICD-10) ?Z98.890 - Other specified postprocedural states (ICD-10) Dysphagia ?R13.10 - Dysphagia, unspecified (ICD-10) Ovarian cancer ?C56.9 - Malignant neoplasm of unspecified ovary (ICD-10) Osteoarthritis ?M19.90 - Unspecified osteoarthritis, unspecified site (ICD-10) Nerve damage of right foot ?G57.91 - Unspecified mononeuropathy of right lower limb (ICD-10) Nerve damage of left foot ?G57.92 - Unspecified mononeuropathy of left lower limb (ICD-10) Hypothyroidism ?E03.9 - Hypothyroidism, unspecified (ICD-10) Hypertension ?I10 - Essential (primary) hypertension (ICD-10) High cholesterol ?E78.00 - Pure hypercholesterolemia, unspecified (ICD-10) Herniation of right side of L4-L5 intervertebral disc ?M51.26 - Other intervertebral disc displacement, lumbar region (ICD-10) GI problem ?R19.8 - Other specified symptoms and signs involving the digestive system and abdomen (ICD-10) Diabetes 1.5, managed as type 2 ?E13.9 - Other specified diabetes mellitus without complications (ICD-10) Asthma ?J45.909 - Unspecified asthma, uncomplicated (ICD-10) Anemia ?D64.9 - Anemia, unspecified (ICD-10) Surgical History H/O: hysterectomy ?Z90.710 - Acquired absence of both cervix and uterus (ICD-10) Hx of tonsillectomy ?Z90.89 - Acquired absence of other organs (ICD-10) Total knee replacement status ?Z96.659 - Presence of unspecified artificial knee joint (ICD-10) S/P surgery on nasal septum ?Z98.890 - Other specified postprocedural states (ICD-10) History of arthroscopic knee surgery ?Z98.890 - Other specified postprocedural states (ICD-10) History of discectomy ?Z98.890 - Other specified postprocedural states (ICD-10) History of cholecystectomy ?Z90.49 - Acquired absence of other specified parts of digestive tract (ICD-10) History of appendectomy ?Z90.49 - Acquired absence of other specified parts of digestive tract (ICD-10) Family History (Updated 08/27/23 @ 13:[address], [place]) Mother Arthritis Asthma Family history of hypertension Hyperlipidemia Family history of stroke Father Arthritis Family history of diabetes mellitus Family history of hypertension Alzheimer's disease Other Family history of cancer Social History (Updated 08/27/23 @ 13:[address] RN) Within the past year, how often did you have a drink containing alcohol: never Score interpretation: A score less than 3 is consistent with normal alcohol consumption. Smoking status: Never smoker Second hand tobacco smoke exposure: No Non-prescribed substance use: denies use Previous occupational history: disability Highest level of school completed/degree received: high school graduate Little interest or pleasure in doing things: not at all Feeling down, depressed, or hopeless: not at all Meds Home Medications and Allergies Home Medications ?Medication ?Instructions ?Recorded ?Confirmed ?Type dulaglutide 4.5 mg/0.5 mL 4.5 mg subcut QWEEK 08/26/23 10/21/24 History subcutaneous pen injector (Trulicity) fenofibrate 160 mg tablet 160 mg PO DAILY 08/26/23 10/21/24 History fluticasone propionate 50 1 spray intranasal DAILY PRN nasal 08/26/23 10/21/24 History mcg/actuation nasal congestion spray,suspension (Flonase Allergy Relief) insulin regular hum U-500 conc 500 150 unit subcut QPM 08/26/23 10/21/24 History unit/mL subcutaneous soln (Humulin R U-500 (Concentrated) Insulin) levothyroxine 175 mcg capsule 150 mcg PO DAILY 08/26/23 10/21/24 History montelukast 10 mg tablet 10 mg PO DAILY 08/26/23 10/21/24 History nystatin 100,000 unit/gram topical 1 applic topical DAILY PRN rash 08/26/23 10/21/24 History cream pantoprazole 40 mg tablet,delayed 40 mg PO BID 08/26/23 10/21/24 History release (Protonix) clopidogrel 75 mg tablet 75 mg PO DAILY 10/06/24 10/21/24 History lisinopril 10 mg tablet 10 mg PO DAILY 10/06/24 10/21/24 History pregabalin 100 mg capsule (Lyrica) 100 mg PO TID 10/06/24 10/21/24 History evolocumab 140 mg/mL subcutaneous 140 mg subcut .Q2WKS 10/21/24 10/21/24 History pen injector (Repatha SureClick) insulin pump cart,cont inf,BT 10/21/24 10/21/24 History (Omnipod Dash Pods (Gen 4) subcutaneous cartridge) metoprolol tartrate 100 mg tablet 100 mg PO BID 10/21/24 10/21/24 History benzonatate 200 mg capsule 200 mg PO TID PRN cough #20 caps 10/23/24 Rx clindamycin HCl 300 mg capsule 300 mg PO Q6H 10 days #40 caps 10/23/24 Rx levofloxacin 750 mg tablet 750 mg PO DAILY 10 days #10 tabs 10/23/24 Rx Allergies Allergy/AdvReac Type Severity Reaction Status Date / Time azithromycin Allergy Severe Hives Verified 10/06/24 12:35 cephalexin Allergy Severe Hives Verified 10/06/24 12:35 ciprofloxacin Allergy Severe Hives Verified 10/06/24 12:35 doxycycline Allergy Severe Hives Verified 10/21/24 15:00 Penicillins Allergy Severe Anaphylaxis Verified 10/06/24 12:35 sulfamethoxazole Allergy Severe Anaphylaxis Verified 10/06/24 12:35 sulfanilamide Allergy Severe Anaphylaxis Verified 10/06/24 12:35 trimethoprim Allergy Severe Anaphylaxis Verified 10/06/24 12:35 acetaminophen (From Percocet) AdvReac Severe Vomiting Verified 10/06/24 12:35 aspirin AdvReac Severe Vomiting Verified 10/06/24 12:35 cefprozil (From Cefzil) AdvReac Severe Hives Verified 10/06/24 12:35 moxifloxacin (From Avelox) AdvReac Severe Hives Verified 10/06/24 12:35 oxycodone (From Percocet) AdvReac Severe Vomiting Verified 10/06/24 12:35 Exam Narrative Exam Narrative: Constitutional: Morbidly obese. Appears acutely ill with conversational dyspnea. Skin: Appears pale HEENT: Wearing nasal cannula Chest: Thoracic kyphosis Lungs: Diffuse moist crackles, faint wheeze. CV: Tachycardic with a regular rhythm Abdomen: Excessive central adiposity. Lower left abdomen wound which is dresssed Extremities: 1+ pitting edema Neuro: No fasciculations or seizure activity Psych: Appropriate affect Constitutional Vital Signs, click to edit/add: Last Vital Signs Temp 97.8 F 11/08/24 13:48 Pulse 102 H 11/08/24 14:50 Resp 31 H 11/08/24 14:50 BP 160/80 H 11/08/24 13:48 Pulse Ox 96 11/08/24 14:50 O2 Del Method Nasal Cannula 11/08/24 14:35 O2 Flow Rate 5 11/08/24 14:35 Results Laboratory Findings ABG, PT/INR, D-dimer: PT/INR, D-dimer PT 11.0 sec (9.0-11.6) 11/08/24 13:55 INR 1.04 11/08/24 13:55 Abnormal lab findings: Abnormal Labs 11/08/24 13:55 RBC 2.81 L Hgb 8.7 L Hct 27.4 L Neut % (Auto) 82.2 H Lymph % (Auto) 10.8 L Lymph # (Auto) 0.7 L Abs Immat Gran (auto) 0.04 H Imm/Tot Granulo (auto) 0.6 H VBG pCO2 33.1 L Potassium 6.0 H BUN 29.0 H Creatinine 1.56 H Est GFR ( Amer) 42 L Est GFR (Non-Af Amer) 34 L Glucose 536 H* NT-Pro-B Natriuret Pep 1937.0 H* Albumin 3.2 L Assessment and Plan Assessment and Plan (1) Multifocal pneumonia: Assessment and Plan: 1. Pneumonia, bilateral. Present on admission. Cultures ordered (BC x2, sputum). Multiple drug allergies which complicate treatment. Apparently [facility] pre-treated her with Benadryl prior to cephalosporins. Aztrenonam generally has low cross-reactivity with PCN and cephalosporins (less than with carbapenems) - this has solely Gram - activity; paired with vancomycin (no record of allergy) which has only Gram + activity, this combination covers most agents with exception of atypicals, which she can only take doxycycline given erythromycin & fluoroquinolone allergies. 2. Severe sepsis. Secondary to #1. Tachycardic, tachypneic, leukocytosis with acute respiratory failure on admission. Treat pneumonia, supportive care. 3. Tohxm-ip-sdirqmg respiratory failure with hypoxia. Secondary to pneumonia, severe sepsis. Baseline O2 after discharge from [facility] 10/11/2024 was 2-4L/min O2. Requiring now 5L/min O2 to maintain SpO2 >90%. 4. Exacerbation of severe persistent asthma. Secondary to pneumonia. On triple inhaled therapy (Symbicor 160 + Spiriva) and was on Dupixent. With tachycardia, will change to levalbuterol + ipratropium nebs and budesonide. Difficulty expectorating - add pulmonary toilet including Mucinex, PEP, and hypertonic saline nebs. 5. Bilateral pleural effusions. Present on admission. Appear new compared to prior imaging from 09/22/2024 abdomen/pelvis CT. Unclear fluid resuscitation or cardiac status - the discharge summary from [facility] is somewhat vague. Patient has underlying CKD 3, so diuresis may worsen renal function. Will consider thoracentesis if she does not tolerate diuresis. 6. Normocytic anemia. Hb 8.7 - associated with CKD? Appears pale, but this is around her range over the past several months. Transfuse if <7g/dL. 7. DM-2. Will need to monitor closely if on steroids. Has insulin pump. 8. 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 Monitor renal function with diuresis. 9. Hyperkalemia. K 6+ today - etiology unclear - has respiratory alkalosis which would typically drive K+ into cells. Levalbuterol may help. 10. Morbid obesity. BMI 48.5. Weight has always been an issue with the patient, inducing a restrictive pulmonary physiology.
--- NOTE | 2024-11-08 18:44 | P.HP_ITS ---
HPI H&P: HPI History of Present Illness Chief complaint: SOB,MULTIFOCAL PNEUMONIA, HYPOXIA Narrative: Patient presented to the emergency with increasing cough and shortness of breath, she noticed the shortness of breath about 2 days prior to admission the cough more yesterday. In the ER found to have multifocal pneumonia and possible acute combined congestive heart failure, patient admitted for workup and treatment of same When I saw patient in the emergency room, having significant respiratory distress with moderate conversational dyspnea and cough throughout the evaluation Opioid HPI Opioid Management Most Recent Pain and Opioid Data: Last Pain Scale 2 10/22/24, 18:00 Last ORT Total Score 0 Today, 18:37 Last ORT Risk Category Low Risk Today, 18:37 Review of Systems ROS Status of ROS 10 or more systems reviewed and unremark able except as noted in history and below [facility] Medical History (Updated 11/08/24 @ 18:47 by Kamran Chatterjee MD) Left lower lobe pneumonia ?J18.9 - Pneumonia, unspecified organism (ICD-10) Musculoskeletal back pain ?M54.9 - Dorsalgia, unspecified (ICD-10) Fall ?W19.XXXA - Unspecified fall, initial encounter (ICD-10) Concussion ?S06.0XAA - Concussion with loss of consciousness status unknown, initial encounter (ICD-10) Obesity ?E66.9 - Obesity, unspecified (ICD-10) Delayed recovery from anesthesia Postoperative nausea and vomiting ?R11.2 - Nausea with vomiting, unspecified (ICD-10) ?Z98.890 - Other specified postprocedural states (ICD-10) Dysphagia ?R13.10 - Dysphagia, unspecified (ICD-10) Ovarian cancer ?C56.9 - Malignant neoplasm of unspecified ovary (ICD-10) Osteoarthritis ?M19.90 - Unspecified osteoarthritis, unspecified site (ICD-10) Nerve damage of right foot ?G57.91 - Unspecified mononeuropathy of right lower limb (ICD-10) Nerve damage of left foot ?G57.92 - Unspecified mononeuropathy of left lower limb (ICD-10) Hypothyroidism ?E03.9 - Hypothyroidism, unspecified (ICD-10) Hypertension ?I10 - Essential (primary) hypertension (ICD-10) High cholesterol ?E78.00 - Pure hypercholesterolemia, unspecified (ICD-10) Herniation of right side of L4-L5 intervertebral disc ?M51.26 - Other intervertebral disc displacement, lumbar region (ICD-10) GI problem ?R19.8 - Other specified symptoms and signs involving the digestive system and abdomen (ICD-10) Diabetes 1.5, managed as type 2 ?E13.9 - Other specified diabetes mellitus without complications (ICD-10) Asthma ?J45.909 - Unspecified asthma, uncomplicated (ICD-10) Anemia ?D64.9 - Anemia, unspecified (ICD-10) Surgical History H/O: hysterectomy ?Z90.710 - Acquired absence of both cervix and uterus (ICD-10) Hx of tonsillectomy ?Z90.89 - Acquired absence of other organs (ICD-10) Total knee replacement status ?Z96.659 - Presence of unspecified artificial knee joint (ICD-10) S/P surgery on nasal septum ?Z98.890 - Other specified postprocedural states (ICD-10) History of arthroscopic knee surgery ?Z98.890 - Other specified postprocedural states (ICD-10) History of discectomy ?Z98.890 - Other specified postprocedural states (ICD-10) History of cholecystectomy ?Z90.49 - Acquired absence of other specified parts of digestive tract (ICD- 10) History of appendectomy ?Z90.49 - Acquired absence of other specified parts of digestive tract (ICD- 10) Family History (Updated 08/27/23 @ 13:[address], [place]) Mother Arthritis Asthma Family history of hypertension Hyperlipidemia Family history of stroke Father Arthritis Family history of diabetes mellitus Family history of hypertension Alzheimer's disease Other Family history of cancer Social History (Updated 08/27/23 @ 13:[address], RN) Within the past year, how often did you have a drink containing alcohol: never Score interpretation: A score less than 3 is consistent with normal alcohol consumption. Smoking status: Never smoker Second hand tobacco smoke exposure: No Non-prescribed substance use: denies use Previous occupational history: disability Highest level of school completed/degree received: high school graduate Little interest or pleasure in doing things: not at all Feeling down, depressed, or hopeless: not at all Meds Home Medications and Allergies Home Medications ?Medication ?Instructions ?Recorded ?Confirmed ?Type dulaglutide 4.5 mg/0.5 mL 4.5 mg subcut QWEEK 08/26/23 11/08/24 History subcutaneous pen injector (Trulicity) fenofibrate 160 mg tablet 160 mg PO DAILY 08/26/2302/24 History fluticasone propionate 50 1 spray intranasal DAILY PRN nasal 08/26/23 11/08/24 History mcg/actuation nasal congestion spray,suspension (Flonase Allergy Relief) insulin regular hum U-500 conc 500 150 unit subcut QPM 08/26/23 10/21/24 History unit/mL subcutaneous soln (Humulin R U-500 (Concentrated) Insulin) levothyroxine 175 mcg capsule 150 mcg PO DAILY 4 11/08/24 History nystatin 100,000 unit/gram topical 1 applic topical DA LATRICE PRN rash 08/26/23 11/08/24 History cream pantoprazole 40 mg tablet,delayed 40 mg PO BID 4 11/08/24 History release (Protonix) clopidogrel 75 mg tablet 75 mg PO DAILY 10/06/2402/24 History lisinopril 10 mg tablet 10 mg PO DAILY 10/06/2402/24 History pregabalin 100 mg capsule (Lyrica) 100 mg PO TID 10/0611/08/24 History evolocumab 140 mg/mL subcutaneous 140 mg subcut .Q2WKS 10/21/24 11/08/24 History pen injector (Repatha SureClick) insulin pump cart,cont inf,BT 10/21/24 10/21/24 Histo ry (Omnipod Dash Pods (Gen 4) subcutaneous cartridge) metoprolol tartrate 100 mg tablet 100 mg PO BID 11/08/24 History Allergies Allergy/AdvReac Type Severity Reaction Status Date / Time azithromycin Allergy Severe Hives Verified 10/06/24 12:35 cephalexin Allergy Severe Hives Verified 10/06/24 12:35 ciprofloxacin Allergy Severe Hives Verified 10/06/24 12:35 doxycycline Allergy Severe Hives Verified 10/21/24 15:00 Penicillins Allergy Severe Anaphylaxis Verified 10/06/24 12:35 sulfamethoxazole Allergy Severe Anaphylaxis Verified 10/06/24 12:35 sulfanilamide Allergy Severe Anaphylaxis Verified 10/06/24 12:35 trimethoprim Allergy Severe Anaphylaxis Verified 10/06/24 12:35 acetaminophen (From Percocet) AdvReac Severe Vomiting Verified 10/06/24 12:35 aspirin AdvReac Severe Vomiting Verified 10/06/24 12:35 cefprozil (From Cefzil) AdvReac Severe Hives Verified 10/06/24 12:35 moxifloxacin (From Avelox) AdvReac Severe Hives Verified 10/06/24 12:35 oxycodone (From Percocet) AdvReac Severe Vomiting Verified 10/06/24 12:35 Exam Constitutional Vital Signs, click to edit/add: Last Vital Signs Temp 97.9 F 11/08/24 18:37 Pulse 97 H 11/08/24 18:37 Resp 16 11/08/24 18:37 BP 174/81 H 11/08/24 18:37 Pulse Ox 92 L 11/08/24 18:37 O2 Del Method Nasal Cannula 11/08/24 18:37 O2 Flow Rate 2 11/08/24 18:37 Documenting provider has reviewed patient's vital signs: yes Common normals: apparent distress (Moderate respiratory distress with conversational dyspnea) Chest Common normals: inspection of chest normal Respiratory Common normals: abnormal respiratory effort (Moderate conversational dyspnea with respiratory distress) and not clear to ascultation bilaterally Auscultation: rales, rhonchi and wheezes GI Common normals: Normal to inspection, nondistended, normoactive bowel sounds present, soft to palpation and non-tender Extremity Common normals: normal to inspection (3+ edema bilateral lower extremities) Results Labs Labs: Short CBC 11/08/24 Range/Units 13:55 WBC 6.8 (4.0-11.0) 10^3/uL Hgb 8.7 L (12.0-16.0) g/dL Hct 27.4 L (36.0-48.0) % Plt Count 159 (150-450) 10^3/uL BMP 11/08/24 13:55 Sodium 141 Potassium 6.0 H Chloride 107 Carbon Dioxide 21.5 BUN 29.0 H Creatinine 1.56 H Glucose 536 H* Calcium 9.4 Liver Function 11/08/24 Range/Units 13:55 Total Bilirubin 0.6 (0.2-1.0) mg/dL AST 23 (15-37) U/L ALT 27 (14-59) U/L Alkaline Phosphatase 66 (46-116) U/L Albumin 3.2 L (3.4-5.0) g/dL ABG ABG results: 11/08/24 13:55 VBG pH 7.342 VBG pCO2 33.1 L Assessment and Plan Assessment and Plan (1) Multifocal pneumonia: (2) Hypoxia: (3) Obesity: (4) Hypothyroidism: (5) Hypertension: (6) High cholesterol: (7) Diabetes 1.5, managed as type 2: (8) Asthma: (9) Anemia: Plan Admission findings: Sinus tachycardia, respiratory distress with acute hypoxia with chronic hypoxic respiratory failure, elevated blood pressure on admission, acute hypoxia with O2 sat of 91% on 3 L normal white blood cell count but with left shift consistent with a bacterial process, hyperkalemia, severe elevation in glucose, elevated BNP all consistent with multifocal pneumonia causing acute exacerbation of COPD and resulting in sepsis (tachycardia, respiratory distress, known infectious source of lungs) Multifocal pneumonia resulting in sepsis with acute exacerbation of chronic hypoxic respiratory failure and acute hypoxia-consult to pulmonology-antibiotic started as recommended, need to watch creatinine closely with chronic kidney disease stage III Acute combined congestive heart failure secondary to the sepsis as outlined above-recent echocardiogram was good ejection fraction, consult to cardiology, track and trend troponins as she has had NSTEMI's in the past, Bumex drip today, Bilateral pleural effusions-diuresis, can consider repeating chest x-ray Anemia likely combination of iron deficiency as well as renal-monitor daily Uncontrolled diabetes mellitus-likely to be worse with treatment for the above, insulin sliding scale plus her home high-dose insulin regiment Chronic kidney disease stage III-monitor daily Hyperkalemia-diuresis likely to fix, repeat in a.m. Coronary artery disease secondary to hypercholesterolemia-consult to cardiology maintain current medications Hypothyroidism-check levels Hypertension-continue with home medications GERD-use home medications Diabetic peripheral neuropathy as a complication of poorly controlled diabetes mellitus-continue with home medications Admissions status: Patient now with acute exacerbation of asthma secondary multifocal pneumonia resulting in sepsis and acute combined congestive heart failure with acute hypoxia on top of chronic hypoxic respiratory failure, medically necessary treatment will span 2 midnights. Inpatient status Urinary Catheter Management Urinary Catheter Management Pure Wick: Cath placed during this visit: yes Urethral indwelling: No Insertion date: 11/08/24 Insertion time: 15:50
[2024-11-08 19:20] LABS: Influenza Virus A Antigen Negative; Influenza Virus B Antigen Negative; Internal Control Within Normal Limits; Respiratory Syncytial Virus Not Detected (NOT DETECTE); SARS-CoV-2 Ag NEGATIVE (NEGATIVE)
[2024-11-08 19:27] LABS: Troponin I High Sensitivity 29.3 pg/mL (4.0-51.3)
[2024-11-08] MEDS: AZTREONAM 1,000 MG in 0.9 % SODIUM CHLORIDE 50 ML 100 MG IV (19:30)
[2024-11-08 19:31] LABS: Magnesium 1.9 mg/dL (1.8-2.4); Thyroid Stimulating Hormone 1.272 uIU/mL (0.358-3.740)
[2024-11-08] MEDS: SODIUM CHLORIDE 3% INHALATION 15 ML NEB 3 ML IH (20:31)
[2024-11-08] MEDS: LEVALBUTEROL HCL 0.63 MG/3 ML VIAL.NEB IH (20:31)
[2024-11-08] MEDS: IPRATROPIUM BROMIDE 0.5 MG/2.5 ML VIAL.NEB IH (20:31)
[2024-11-08] MEDS: BUDESONIDE 0.5 MG/2 ML AMPULE NEB IH (20:31)
[2024-11-08 20:58] LABS: Anion Gap 21.2; BUN Creatinine Ratio 20.3; Calcium 9.2 mg/dL (8.5-10.1); Carbon Dioxide 18.9 mmol/L (21.0-32.0); Chloride 105 mmol/L (98-107); Estimated GFR (African America 44 (>=60 mL/min/1.73m^2); Estimated GFR (Non-African Ame 36 (>=60 mL/min/1.73m^2); Sodium 139 mmol/L (136-145)
[2024-11-08 21:00] LABS: Glucose 587 mg/dL (74-106); Potassium 6.1 mmol/L (3.5-5.1)
[2024-11-08] MEDS: GUAIFENESIN 600 MG TAB.ER.12H 1200 MG PO (21:03)
[2024-11-08] MEDS: BUMETANIDE 10 MG in 0.9 % SODIUM CHLORIDE 160 ML 20 MG IV (21:03)
[2024-11-08] MEDS: METOPROLOL TARTRATE 100 MG TABLET PO (21:03)
[2024-11-08] MEDS: PANTOPRAZOLE SODIUM 40 MG TABLET.DR PO (21:03)
[2024-11-08] MEDS: BENZONATATE 100 MG CAPSULE 200 MG PO (21:03)
[2024-11-08] MEDS: INSULIN ASPART 300 UNIT/3 ML PEN SUBQ (21:11)
[2024-11-08 21:16] LABS: Glucometer 537 mg/dL (74-106)
[2024-11-08] MEDS: PREGABALIN 100 MG CAPSULE PO (21:24)
[2024-11-08 22:05] LABS: Troponin I High Sensitivity 25.7 pg/mL (4.0-51.3)
[2024-11-09] VITALS (22 sets, daily range): BP systolic 143–170; BP diastolic 52–81; PULSE 73–89; TEMP 36.3–36.7; O2SAT 91–96
[2024-11-09] MEDS: SODIUM ZIRCONIUM CYCLOSILICATE 10 GM POWD.PACK PO (00:59)
[2024-11-09] MEDS: AZTREONAM 1,000 MG in 0.9 % SODIUM CHLORIDE 50 ML 100 MG IV ×3 (03:13→19:42)
[2024-11-09] MEDS: IPRATROPIUM BROMIDE 0.5 MG/2.5 ML VIAL.NEB IH ×4 (04:41→21:44)
[2024-11-09] MEDS: LEVALBUTEROL HCL 0.63 MG/3 ML VIAL.NEB IH ×4 (04:41→21:44)
[2024-11-09] MEDS: PREGABALIN 100 MG CAPSULE PO ×3 (05:35→21:12)
[2024-11-09] MEDS: LEVOTHYROXINE SODIUM 75 MCG TABLET 150 MCG PO (05:35)
[2024-11-09 05:44] LABS: Basophils Percent Auto 0.2 % (0.2-2.0); Hematocrit 28.1 % (36.0-48.0); Hemoglobin 9.1 g/dL (12.0-16.0); Immature Granulocytes Abs Auto 0.04 10^3/uL (0.00-0.03); Immature Granulocytes Pct Auto 0.6 % (0.0-0.5); Lymphocytes Absolute Auto 0.7 10^3/uL (1.2-3.8); Lymphocytes Percent Auto 11.2 % (20.5-60.0); Mean Corpuscular HGB Conc 32.4 g/dL (29.9-35.2); Mean Corpuscular Hemoglobin 31.1 pg (26.7-34.0); Mean Corpuscular Volume 95.9 fL (81.0-99.0); Mean Platelet Volume 12.1 fL (9.5-13.5); Monocytes Absolute Auto 0.1 10^3/uL (0.3-0.8); Monocytes Percent Auto 1.8 % (1.7-12.0); Neutrophils Absolute Auto 5.6 10^3/uL (1.4-6.5); Neutrophils Percent Auto 86.2 % (43.0-75.0); Platelet Count 153 10^3/uL (150-450); Red Blood Count 2.93 10^6/uL (4.20-5.40); Red Cell Distribution Width 14.6 % (11.0-15.0); White Blood Count 6.5 10^3/uL (4.0-11.0)
[2024-11-09 06:09] LABS: Alanine Aminotransferase 23 U/L (14-59); Albumin Globulin Ratio 0.8; Albumin Level 2.9 g/dL (3.4-5.0); Alkaline Phosphatase 59 U/L (46-116); Anion Gap 19.6; Aspartate Amino Transferase 16 U/L (15-37); BUN Creatinine Ratio 22.4; Bilirubin Total 0.6 mg/dL (0.2-1.0); Calcium 9.2 mg/dL (8.5-10.1); Carbon Dioxide 19.6 mmol/L (21.0-32.0); Chloride 105 mmol/L (98-107); Estimated GFR (African America 46 (>=60 mL/min/1.73m^2); Estimated GFR (Non-African Ame 38 (>=60 mL/min/1.73m^2); Globulin 3.5 g/dL; Potassium 5.2 mmol/L (3.5-5.1); Sodium 139 mmol/L (136-145); Total Protein 6.4 g/dL (6.4-8.2)
[2024-11-09 06:13] LABS: Glucose 518 mg/dL (74-106)
--- NOTE | 2024-11-09 07:47 | P.PN_ITS ---
Progress Note: Subjective Subjective Interval history: Patient states her breathing does feel some better she still looks extremely weak, not nearly as much conversational dyspnea as she had yesterday Exam Constitutional Vital Signs, click to edit/add: Last Vital Signs Temp 97.3 F L 11/09/24 03:00 Pulse 88 11/09/24 06:00 Resp 24 H 11/09/24 04:41 BP 170/76 H 11/09/24 03:00 Pulse Ox 94 L 11/09/24 04:41 O2 Del Method Nasal Cannula 11/09/24 04:41 O2 Flow Rate 3 11/09/24 04:41 Documenting provider has reviewed patient's vital signs: yes Common normals: no apparent distress (Mild respiratory distress with conversational dyspnea) Chest Common normals: inspection of chest normal Respiratory Common normals: abnormal respiratory effort (Mild conversational dyspnea with respiratory distress) and not clear to ascultation bilaterally Auscultation: rales (Bases), rhonchi (Improved) and wheezes (None noted but just with aerosol treatment) Cardio Common normals: regular rate, regular rhythm and no murmurs GI Common normals: soft to palpation and non-tender; negative for Normal to inspection, nondistended, normoactive bowel sounds present (Morbidly obese) Extremity Common normals: abnormal to inspection (3+ edema bilateral lower extremities) and clubbing, cyanosis or edema Progress Note: Objective Labs Labs: Short CBC 11/08/24 11/09/24 Range/Units 13:55 05:25 WBC 6.8 6.5 (4.0-11.0) 10^3/uL Hgb 8.7 L 9.1 L (12.0-16.0) g/dL Hct 27.4 L 28.1 L (36.0-48.0) % Plt Count 159 153 (150-450) 10^3/uL BMP 11/08/24 11/08/24 11/09/24 13:55 20:39 05:25 Sodium 141 139 139 Potassium 6.0 H 6.1 H* 5.2 H Chloride 107 105 105 Carbon Dioxide 21.5 18.9 L 19.6 L BUN 29.0 H 30.0 H 32.0 H Creatinine 1.56 H 1.48 H 1.43 H Glucose 536 H* 587 H* 518 H* Calcium 9.4 9.2 9.2 Liver Function 11/08/24 11/09/24 Range/Units 13:55 05:25 Total Bilirubin 0.6 0.6 (0.2-1.0) mg/dL AST 23 16 (15-37) U/L ALT 27 23 (14-59) U/L Alkaline Phosphatase 66 59 (46-116) U/L Albumin 3.2 L 2.9 L (3.4-5.0) g/dL Progress Note: A&P Assessment and Plan (1) Multifocal pneumonia: (2) Hypoxia: (3) Obesity: (4) Hypothyroidism: (5) Hypertension: (6) High cholesterol: (7) Diabetes 1.5, managed as type 2: (8) Asthma: (9) Anemia: Plan Admission findings: Sinus tachycardia, respiratory distress with acute hypoxia with chronic hypoxic respiratory failure, elevated blood pressure on admission, acute hypoxia with O2 sat of 91% on 3 L normal white blood cell count but with left shift consistent with a bacterial process, hyperkalemia, severe elevation in glucose, elevated BNP all consistent with multifocal pneumonia causing acute exacerbation of COPD and resulting in sepsis (tachycardia, respiratory distress, known infectious source of lungs) Multifocal pneumonia resulting in sepsis with acute exacerbation of chronic hypoxic respiratory failure and acute hypoxia-see pulmonology notes Acute combined congestive heart failure secondary to the sepsis as outlined above-recent echocardiogram was good ejection fraction, consult to cardiology, repeat Bumex drip again today, creatinine stable Bilateral pleural effusions-diuresis, can consider repeating chest x-ray-see above Anemia likely combination of iron deficiency as well as renal-monitor daily- improved slightly Uncontrolled diabetes mellitus-likely to be worse with treatment for the above, insulin sliding scale plus her home high-dose insulin regiment discussed with pharmacy Chronic kidney disease stage III-monitor daily Hyperkalemia-diuresis likely to fix, repeat in a.m. Coronary artery disease secondary to hypercholesterolemia-consult to cardiology maintain current medications Hypothyroidism-check levels Hypertension-continue with home medications GERD-use home medications Diabetic peripheral neuropathy as a complication of poorly controlled diabetes mellitus-continue with home medications Admissions status: Patient now with acute exacerbation of asthma secondary multifocal pneumonia resulting in sepsis and acute combined congestive heart failure with acute hypoxia on top of chronic hypoxic respiratory failure, medically necessary treatment will span 2 midnights. Inpatient status Urinary Catheter Management Urinary Catheter Management Pure Wick: Cath placed during this visit: yes Urethral indwelling: No Insertion date: 11/08/24 Insertion time: 15:50 Urethral: Cath placed during this visit: yes Urethral indwelling: Yes Reason for continuing: measure accurate output Insertion date: 11/08/24 Insertion time: 21:15
[2024-11-09 07:56] LABS: Glucometer 538 mg/dL (74-106)
--- NOTE | 2024-11-09 08:22 | P.PLPN_ITS ---
Progress Note: A&P Assessment and Plan (1) Multifocal pneumonia: Assessment and Plan: 1. Pneumonia, bilateral. Clinically appears to have improved overnight. Continue aztreonam + vancomycin - no rash or reaction noted. Cx pending. 2. Severe sepsis. Secondary to #1. Clinically is improving. 3. Tnapd-iw-npcybyq respiratory failure with hypoxia. Secondary to pneumonia, severe sepsis. Question patient compliance with O2 at home given conversation with patient. She has never made it into the office for hospital F/U. Educated patient on proper positioning of nasal cannula prongs. 4. Exacerbation of severe persistent asthma. Secondary to pneumonia. Continue budesonide + levalbuterol/ipratropium. Transition back to Symbicort + Spiriva @ discharge. 5. Bilateral pleural effusions. Diuresis with Bumex - monitor renal function. 6. Metabolic acidosis. Present on admission, also had respiratory alkalosis - compensatory + secondary to hypoxia. HCO3- low today (19), but no lactic acidosis - question possible DKA associated with uncontrolled DM2? 7. DM-2. Uncontrolled, FSBS >500. Mild acidosis on ABG yesterday - question possible HHNKS or even progression towards DKA? Pharmacy was present in room assisting patient with insulin pump and to better manage FSBS. 8. 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 Renal function currently maintained. Monitor with Bumex therapy. 9. Hyperkalemia. Associated with acidosis? Improved today. 10. Normocytic anemia. Hb slightly improved to 9.1g/dL. Better color today. 11. Morbid obesity. BMI 48.5. Subjective Subjective Interval history: Patient seen @ bedside today. Breathing is less labored, no pursed lip breathing. Less pallor. She says she is still SOB, but not as severe. FiO2 weaned down to 3L; however, nasal cannula was malpositioned with prongs upside- down in the nares. I repositioned the nasal cannula and she replied That feels better. Labs reviewed - cx pending. K+ improved. More air movement; she feels congestion loosening, but still having difficulty expectorating. Exam Narrative Exam Narrative: Exam Narrative: Constitutional: Morbidly obese. Conversational dyspnea improved. Not diaphoretic unlike yesterday. Skin: Better color this AM. HEENT: Nasal cannula was upside down - I re-adjusted the cannula to have the prongs entering the nares the correct way. Chest: Thoracic kyphosis Lungs: More air movement today. Slightly less crackles, no wheezes today. RR decreased from 30's yesterday to 20's. CV: RRR Abdomen: Excessive central adiposity. Extremities: 1+ pitting edema - relatively unchanged Neuro: No fasciculations or seizure activity Psych: Appropriate affect Constitutional Vital Signs, click to edit/add: Last Vital Signs Temp 97.3 F L 11/09/24 03:00 Pulse 88 11/09/24 07:58 Resp 24 H 11/09/24 04:41 BP 170/76 H 11/09/24 03:00 Pulse Ox 94 L 11/09/24 04:41 O2 Del Method Nasal Cannula 11/09/24 04:41 O2 Flow Rate 3 11/09/24 04:41
[2024-11-09] MEDS: CLOPIDOGREL BISULFATE 75 MG TABLET PO (08:46)
[2024-11-09] MEDS: GUAIFENESIN 600 MG TAB.ER.12H 1200 MG PO ×2 (08:46→21:12)
[2024-11-09] MEDS: METOPROLOL TARTRATE 100 MG TABLET PO ×2 (08:46→21:11)
[2024-11-09] MEDS: FENOFIBRATE 54 MG TABLET 162 MG PO (08:47)
[2024-11-09] MEDS: INSULIN ASPART 300 UNIT/3 ML PEN SUBQ ×3 (08:47→16:40)
[2024-11-09] MEDS: PANTOPRAZOLE SODIUM 40 MG TABLET.DR PO ×2 (08:47→21:12)
[2024-11-09] MEDS: INSULIN REGULAR, HUMAN (100 UNIT/ML) 10 ML MDV SUBQ (08:47)
[2024-11-09] MEDS: CANAGLIFLOZIN 100 MG TABLET PO (08:47)
[2024-11-09 09:15] LABS: Bilirubin Urine NEGATIVE (NEGATIVE); Blood Urine LARGE (NEGATIVE); Clarity Urine CLEAR (CLEAR); Color Urine LT. YELLOW (YELLOW); Glucose Urine UA >=1000 mg/dL (NEGATIVE); Ketones Urine NEGATIVE (NEGATIVE); Leukocyte Esterase Urine NEGATIVE (NEGATIVE); Nitrite Urine NEGATIVE (NEGATIVE); Protein Urine NEGATIVE (NEG/TRACE); Urobilinogen Urine 0.2 EU/dL (0.2-1.0)
--- NOTE | 2024-11-09 09:43 | SWNOTE1 ---
SW and I met with with pt in room. Pt lives at home with her mother that she cares for. Pt is otherwise independent. Pt uses a cane and recently started using home oxygen at 2 liters. Pt did have home health coming in, [facility], but that has stopped. SW did let pt know that Dr. Chatterjee recommends pt go to rehab. 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 SW did let pt know that we could have home health as plan a and snf as a plan b as she is a precert. SW let the pt know SW and I would be back after therapy comes in. SW to follow up.
[2024-11-09 09:50] LABS: Bacteria Urine TRACE #/HPF (NONE SEEN); Cast Seen? NONE SEEN #/LPF (NONE SEEN); Crystals Seen? None Seen #/HPF (None Seen); Mucus Urine NONE SEEN (NONE SEEN); Squamous Epithelial Cell Urine RARE #/LPF (NONE/RARE); WBC Urine 0-2 #/HPF (NONE SEEN)
--- NOTE | 2024-11-09 09:50 | SWNOTE1 ---
Important Message from [employer] reviewed and discussed with patient. Pt. verbalized understanding and signed the form. Original given to patient and copy placed in patient?s chart.
[2024-11-09 11:00] LABS: Glucometer 551 mg/dL (74-106)
[2024-11-09] MEDS: BUDESONIDE 0.5 MG/2 ML AMPULE NEB IH ×2 (11:54→21:44)
[2024-11-09 12:20] LABS: A. calcoaceticus-baumannii Cpx NOT DETECTED (NOT DETECTE); Bacteroides fragilis NOT DETECTED (NOT DETECTE); Candida albicans NOT DETECTED (NOT DETECTE); Candida auris NOT DETECTED (NOT DETECTE); Candida glabrata NOT DETECTED (NOT DETECTE); Candida krusei NOT DETECTED (NOT DETECTE); Candida parapsilosis NOT DETECTED (NOT DETECTE); Candida tropicalis NOT DETECTED (NOT DETECTE); Cryptococcus neoformans/gattii NOT DETECTED (NOT DETECTE); Enterobacter cloacae complex NOT DETECTED (NOT DETECTE); Enterobacterales NOT DETECTED (NOT DETECTE); Enterococcus faecalis NOT DETECTED (NOT DETECTE); Enterococcus faecium NOT DETECTED (NOT DETECTE); Haemophilus influenzae NOT DETECTED (NOT DETECTE); Klebsiella aerogenes NOT DETECTED (NOT DETECTE); Klebsiella pneumoniae group NOT DETECTED (NOT DETECTE); Listeria monocytogenes NOT DETECTED (NOT DETECTE); Neisseria meningitidis NOT DETECTED (NOT DETECTE); Proteus spp. NOT DETECTED (NOT DETECTE); Pseudomonas aeruginosa NOT DETECTED (NOT DETECTE); Salmonella spp. NOT DETECTED (NOT DETECTE); Serratia marcescens NOT DETECTED (NOT DETECTE); Staphylococcus lugdunensis NOT DETECTED (NOT DETECTE); Stenotrophomonas maltophilia NOT DETECTED (NOT DETECTE); Streptococcus agalactiae NOT DETECTED (NOT DETECTE); Streptococcus pneumoniae NOT DETECTED (NOT DETECTE); Streptococcus pyogenes NOT DETECTED (NOT DETECTE); Streptococcus spp. NOT DETECTED (NOT DETECTE)
[2024-11-09] MEDS: 0.9 % SODIUM CHLORIDE 250 ML 10 ML IV (12:40)
[2024-11-09] MEDS: BUMETANIDE 10 MG in 0.9 % SODIUM CHLORIDE 160 ML 20 MG IV (13:16)
[2024-11-09 13:49] LABS: Source BLOOD
[2024-11-09 13:51] LABS: Staphylococcus epidermidis DETECTED (NOT DETECTE)
[2024-11-09] MEDS: ACETAMINOPHEN 500 MG TABLET 1000 MG PO (15:00)
[2024-11-09] MEDS: BENZONATATE 100 MG CAPSULE 200 MG PO (15:00)
--- NOTE | 2024-11-09 15:31 | SWNOTE1 ---
OT is recommending SNF. SW stopped back in and spoke with pt about rehab. She does feel like she is a little weaker, but feels she will be better once she is ready for dc. SW again offered rehab. Pt concerned about not being at home with her mother to care for her. At this time she just wants to discharge home with HH. SW to check back tomorrow.
[2024-11-09] MEDS: SODIUM CHLORIDE 3% INHALATION 15 ML NEB 3 ML IH (16:17)
[2024-11-09 16:30] LABS: Glucometer 148 mg/dL (74-106)
[2024-11-09] MEDS: VANCOMYCIN HCL 2,000 MG in 0.9 % SODIUM CHLORIDE 500 ML 250 MG IV (16:39)
[2024-11-09 21:17] LABS: Glucometer 112 mg/dL (74-106)
[2024-11-10] VITALS (25 sets, daily range): BP systolic 123–169; BP diastolic 72–85; PULSE 69–86; TEMP 36.3–36.6; O2SAT 83–98
[2024-11-10 00:28] LABS: Glucometer 125 mg/dL (74-106)
[2024-11-10] MEDS: AZTREONAM 1,000 MG in 0.9 % SODIUM CHLORIDE 50 ML 100 MG IV ×3 (03:23→19:33)
[2024-11-10 05:24] LABS: Basophils Percent Auto 0.5 % (0.2-2.0); Eosinophils Absolute Auto 0.2 10^3/uL (0.0-0.7); Eosinophils Percent Auto 2.7 % (0.9-7.0); Hematocrit 30.7 % (36.0-48.0); Hemoglobin 9.9 g/dL (12.0-16.0); Immature Granulocytes Abs Auto 0.05 10^3/uL (0.00-0.03); Immature Granulocytes Pct Auto 0.6 % (0.0-0.5); Lymphocytes Absolute Auto 1.7 10^3/uL (1.2-3.8); Lymphocytes Percent Auto 18.9 % (20.5-60.0); Mean Corpuscular HGB Conc 32.2 g/dL (29.9-35.2); Mean Corpuscular Hemoglobin 30.9 pg (26.7-34.0); Mean Corpuscular Volume 95.9 fL (81.0-99.0); Mean Platelet Volume 11.8 fL (9.5-13.5); Monocytes Absolute Auto 0.5 10^3/uL (0.3-0.8); Monocytes Percent Auto 5.6 % (1.7-12.0); Neutrophils Absolute Auto 6.3 10^3/uL (1.4-6.5); Neutrophils Percent Auto 71.7 % (43.0-75.0); Platelet Count 184 10^3/uL (150-450); Red Cell Distribution Width 14.8 % (11.0-15.0); White Blood Count 8.7 10^3/uL (4.0-11.0)
[2024-11-10] MEDS: IPRATROPIUM BROMIDE 0.5 MG/2.5 ML VIAL.NEB IH ×4 (05:37→21:16)
[2024-11-10] MEDS: LEVALBUTEROL HCL 0.63 MG/3 ML VIAL.NEB IH ×4 (05:37→21:16)
[2024-11-10] MEDS: SODIUM CHLORIDE 3% INHALATION 15 ML NEB 3 ML IH ×2 (05:37→16:24)
[2024-11-10 05:48] LABS: Alanine Aminotransferase 22 U/L (14-59); Albumin Globulin Ratio 0.8; Albumin Level 3.1 g/dL (3.4-5.0); Alkaline Phosphatase 56 U/L (46-116); Anion Gap 16.7; Aspartate Amino Transferase 16 U/L (15-37); BUN Creatinine Ratio 28.4; Bilirubin Total 0.5 mg/dL (0.2-1.0); Calcium 9.5 mg/dL (8.5-10.1); Carbon Dioxide 28.4 mmol/L (21.0-32.0); Chloride 102 mmol/L (98-107); Estimated GFR (African America 38 (>=60 mL/min/1.73m^2); Estimated GFR (Non-African Ame 31 (>=60 mL/min/1.73m^2); Globulin 3.7 g/dL; Glucose 156 mg/dL (74-106); Potassium 4.1 mmol/L (3.5-5.1); Sodium 143 mmol/L (136-145); Total Protein 6.8 g/dL (6.4-8.2)
[2024-11-10] MEDS: LEVOTHYROXINE SODIUM 100 MCG TABLET PO (05:49)
[2024-11-10] MEDS: LEVOTHYROXINE SODIUM 75 MCG TABLET PO (05:49)
[2024-11-10] MEDS: PREGABALIN 100 MG CAPSULE PO ×3 (05:49→21:23)
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
--- NOTE | 2024-11-10 07:40 | P.PN_ITS ---
Progress Note: Subjective Subjective Interval history: Patient states her breathing does feel some better she still looks extremely weak, not nearly as much conversational dyspnea as she had yesterday Exam Constitutional Vital Signs, click to edit/add: Last Vital Signs Temp 97.7 F 11/10/24 03:00 Pulse 77 11/10/24 05:57 Resp 20 11/10/24 05:38 BP 123/72 11/10/24 03:00 Pulse Ox 96 11/10/24 05:38 O2 Del Method Nasal Cannula 11/10/24 05:38 O2 Flow Rate 2 11/10/24 05:38 Progress Note: Objective Labs Labs: Short CBC 11/10/24 Range/Units 05:10 WBC 8.7 (4.0-11.0) 10^3/uL Hgb 9.9 L (12.0-16.0) g/dL Hct 30.7 L (36.0-48.0) % Plt Count 184 (150-450) 10^3/uL BMP 11/10/24 05:10 Sodium 143 Potassium 4.1 Chloride 102 Carbon Dioxide 28.4 BUN 48.0 H Creatinine 1.69 H Glucose 156 H Calcium 9.5 Liver Function 11/10/24 Range/Units 05:10 Total Bilirubin 0.5 (0.2-1.0) mg/dL AST 16 (15-37) U/L ALT 22 (14-59) U/L Alkaline Phosphatase 56 (46-116) U/L Albumin 3.1 L (3.4-5.0) g/dL Urine 11/09/24 Range/Units 08:40 Urine Color Lt. yellow (YELLOW) Urine Clarity Clear (CLEAR) Urine pH 6.0 (5.0-9.0) Ur Specific Dierks 1.010 (1.005-1.025) Urine Protein Negative (NEG/TRACE) mg/dL Urine Glucose (UA) >=1000 A (NEGATIVE) mg/dL Progress Note: A&P Assessment and Plan (1) Multifocal pneumonia: (2) Iron deficiency anemia: (3) Chronic kidney disease, stage III (moderate): (4) Hyperkalemia: (5) Acute combined systolic (congestive) and diastolic (congestive) heart failure: (6) Hypoxia: (7) Musculoskeletal back pain: (8) Obesity: (9) Hypothyroidism: (10) Hypertension: (11) High cholesterol: (12) Diabetes 1.5, managed as type 2: (13) Asthma: Plan Admission findings: Sinus tachycardia, respiratory distress with acute hypoxia w ith chronic hypoxic respiratory failure, elevated blood pressure on admission, acute hypoxia with O2 sat of 91% on 3 L normal white blood cell count but with left shift consistent with a bacterial process, hyperkalemia, severe elevation in glucose, elevated BNP all consistent with multifocal pneumonia causing acute exacerbation of COPD and resulting in sepsis (tachycardia, respiratory distress, known infectious source of lungs) Multifocal pneumonia resulting in sepsis with acute exacerbation of chronic hypoxic respiratory failure and acute hypoxia-see pulmonology notes Acute combined congestive heart failure secondary to the sepsis as outlined above-recent echocardiogram was good ejection fraction, cardiology consult joseph lazaro, good diuresis with Bumex drip will change to oral agents today Bilateral pleural effusions-diuresis, can consider repeating chest [id number]-up chest x-ray Anemia likely combination of iron deficiency as well as renal-monitor daily- improved slightly Uncontrolled diabetes mellitus-likely to be worse with treatment for the above, insulin sliding scale plus her home high-so far doing well with the higher dose sliding scale, will maintain that and DC the every 8 hours insulin Chronic kidney disease stage III-up somewhat from diuresis as expected Hyperkalemia-resolved Coronary artery disease secondary to hypercholesterolemia-consult to cardiology maintain current medications Hypothyroidism-check levels Hypertension-stable GERD-use home medications Diabetic peripheral neuropathy as a complication of poorly controlled diabetes mellitus-continue with home medications Admissions status: Patient now with acute exacerbation of asthma secondary multifocal pneumonia resulting in sepsis and acute combined congestive heart failure with acute hypoxia on top of chronic hypoxic respiratory failure, medically necessary treatment will span 2 midnights. Inpatient status Urinary Catheter Management Urinary Catheter Management Pure Wick: Cath placed during this visit: yes Urethral indwelling: No Insertion date: 11/08/24 Insertion time: 15:50 Urethral: Cath placed during this visit: yes Urethral indwelling: Yes Reason for continuing: measure accurate output Insertion date: 11/08/24 Insertion time: 21:15
[2024-11-10 07:45] LABS: Glucometer 191 mg/dL (74-106)
--- NOTE | 2024-11-10 07:50 | XR_ITS ---
[place] [id number] Patient Name: [facility] MRN: [id number] date: 1970 Sex: F Assigned Patient Location: Current Patient Location: Accession/Order Number: [id number] Exam Date: 11/10/2024 09:14 Report Date: 11/10/2024 09:19 At the request of: SEA CHASE MD Procedure: XR chest 2V PA AND LATERAL CHEST: CLINICAL HISTORY: follow up pneumonia , pleural effusions COMPARISON: CT and chest x-ray 11/08/2024 Bibasilar pleural-parenchymal changes are still present, left slightly greater than right where the hemidiaphragm is obscured. There is additional patchy groundglass opacity at the right lower lung. Findings may be slightly improved. No pneumothorax is visualized. The heart is top normal in size. The hilar and mediastinal silhouettes are within normal limits. The visualized bony thorax is intact. There is endplate spurring at the spine. [place] pins are noted at the right humeral head. XR/XR chest 2V IMPRESSION: CONTINUED PLEURAL-PARENCHYMAL CHANGES. DESPITE DIFFERENCES IN TECHNIQUE AND MODALITY, SLIGHT INTERVAL IMPROVEMENT IS SUSPECTED. Impression dictated by: Kim Coleman M.D. 11/10/2024 9:19 AM Dictation Location: [place] [address] Electronically authenticated by: [id number] Y Date: 11/10/2024 09:19
[2024-11-10] MEDS: FENOFIBRATE 54 MG TABLET 162 MG PO (08:40)
[2024-11-10] MEDS: CANAGLIFLOZIN 100 MG TABLET PO (08:40)
[2024-11-10] MEDS: CLOPIDOGREL BISULFATE 75 MG TABLET PO (08:40)
[2024-11-10] MEDS: GUAIFENESIN 600 MG TAB.ER.12H 1200 MG PO ×2 (08:40→21:23)
[2024-11-10] MEDS: FUROSEMIDE 40 MG TABLET PO ×2 (08:40→21:23)
[2024-11-10] MEDS: METOPROLOL TARTRATE 100 MG TABLET PO ×2 (08:40→21:23)
[2024-11-10] MEDS: PANTOPRAZOLE SODIUM 40 MG TABLET.DR PO ×2 (08:40→21:23)
[2024-11-10] MEDS: INSULIN ASPART 300 UNIT/3 ML PEN SUBQ ×4 (08:41→21:24)
[2024-11-10] MEDS: SACUBITRIL/VALSARTAN 24 MG-26 MG TABLET 1 TAB PO ×2 (08:41→21:23)
--- NOTE | 2024-11-10 09:22 | SWNOTE1 ---
Called [facility] to check what pt's liter flow is for home oxygen. She is on 2 liters at rest and 4 liters on ambulation. We notified the pt's nurse.
--- NOTE | 2024-11-10 10:47 | SWNOTE1 ---
Case management received a call from [facility] that they cannot accept the pt for home health. SW will speak with the pt to discuss other options.
[2024-11-10 11:07] LABS: Glucometer 206 mg/dL (74-106)
[2024-11-10] MEDS: BUDESONIDE 0.5 MG/2 ML AMPULE NEB IH ×2 (11:22→21:16)
[2024-11-10] MEDS: ACETAMINOPHEN 500 MG TABLET 1000 MG PO (14:44)
--- NOTE | 2024-11-10 15:02 | SWNOTE1 ---
SW and I went and spoke with pt and let her know [facility] is unable to accept her. SW discussed other company options with the pt. Pt was okay with [facility]. SW sent referral to them.
--- NOTE | 2024-11-10 15:05 | SWNOTE1 ---
SW let pt know she will likely go home on IV antibiotics. Pt has had home IV antibiotics in the past and is able to do them herself. Pt could not remember the supplier of the antibiotics but does not have a preference. At this point we are waiting on confirmation of the antibiotic to move forward with the referral.
--- NOTE | 2024-11-10 15:48 | XR_ITS ---
[place] [id number] Patient Name: MARY JANE SANTOS MRN: [id number] date: 1970 Sex: F Assigned Patient Location: Current Patient Location: Accession/Order Number: [id number] Exam Date: 11/10/2024 20:09 Report Date: 11/10/2024 20:11 At the request of: SEA CHASE MD Procedure: XR chest 1V Plain film chest Single view HISTORY: PICC line placement COMPARISON: 11/10/2024 FINDINGS: SUPPORT DEVICES: Right PICC line tip overlies the distal SVC. POSTSURGICAL CHANGES: Right rotator cuff repair changes HEART: Within normal limits PULMONARY PAM: Within normal limits MEDIASTINUM: Unremarkable LUNGS AND PLEURA: Similar left greater than right mild to moderate basilar pleural-parenchymal changes. No pneumothorax. BONY STRUCTURES: Intact ADDITIONAL FINDINGS None XR/XR chest 1V IMPRESSION: Adequate position of right arm PICC line. Similar basilar pleural-parenchymal changes. Impression dictated by: Mihai Jackson M.D. 11/10/2024 8:11 PM Dictation Location: [place] [address] Electronically authenticated by: [id number] Y Date: 11/10/2024 20:11
[2024-11-10 16:41] LABS: Glucometer 296 mg/dL (74-106)
[2024-11-10] MEDS: VANCOMYCIN HCL 2,000 MG in 0.9 % SODIUM CHLORIDE 500 ML 250 MG IV (16:59)
[2024-11-10] MEDS: 0.9 % SODIUM CHLORIDE 250 ML 10 ML IV (17:11)
[2024-11-10 17:48] LABS: mecA/C NOT DETECTED (NOT DETECTE)
[2024-11-10 18:01] LABS: Staphylococcus spp. DETECTED (NOT DETECTE)
--- NOTE | 2024-11-10 18:27 | PM.CACN ---
History of Present Illness History of Present Illness Consult date: 11/10/24 Requesting physician: Kamran Chatterjee Consult reason: congestive heart failure Chief complaint: SOB,MULTIFOCAL PNEUMONIA, HYPOXIA Narrative: This is a 54-year-old woman with prior history of mild coronary artery disease by cardiac catheterization in 2020, hypertension, hyperlipidemia, stage IIIb chronic kidney disease, morbid obesity, type 2 diabetes with elevated hemoglobin A1c, recurrent admissions for pneumonia and hypoxic respiratory failure. She also has obstructive sleep apnea and is not compliant with CPAP therapy. She is now admitted to the hospital with another episode of pneumonia and hypoxia. In addition she was found to have elevated BNP. Troponin levels were normal. She has been having significant cough that has improved treatment with antibiotics here in the hospital. She has lower extremity edema and was started on intravenous diuretic therapy. She was admitted to [facility] on 10/06/2024 due to pneumonia and at that time she had minimally elevated troponin high-sensitivity. This was thought to be type II myocardial infarction related to the acute illness. Her echocardiogram at that time showed normal left ventricular systolic function, dilated right ventricle that is dysfunctional. And no significant valvular dysfunction. Today she reports that she has been feeling better. She denies chest pain except when coughing. Her breathing has improved. Her leg swelling has improved with therapy. Review of Systems ROS Status of ROS 10 or more systems reviewed and unremarkable except as noted in history and below Cardiovascular Reports: chest pain, edema, swelling of feet/ankles and shortness of breath with exertion Respiratory Reports: shortness of breath, cough and wheezing [facility] Medical History (Updated 11/10/24 @ 18:40 by NANDA KAUR) Left lower lobe pneumonia ?J18.9 - Pneumonia, unspecified organism (ICD-10) Musculoskeletal back pain ?M54.9 - Dorsalgia, unspecified (ICD-10) Fall ?W19.XXXA - Unspecified fall, initial encounter (ICD-10) Concussion ?S06.0XAA - Concussion with loss of consciousness status unknown, initial encounter (ICD-10) Obesity ?E66.9 - Obesity, unspecified (ICD-10) Delayed recovery from anesthesia Postoperative nausea and vomiting ?R11.2 - Nausea with vomiting, unspecified (ICD-10) ?Z98.890 - Other specified postprocedural states (ICD-10) Dysphagia ?R13.10 - Dysphagia, unspecified (ICD-10) Ovarian cancer ?C56.9 - Malignant neoplasm of unspecified ovary (ICD-10) Osteoarthritis ?M19.90 - Unspecified osteoarthritis, unspecified site (ICD-10) Nerve damage of right foot ?G57.91 - Unspecified mononeuropathy of right lower limb (ICD-10) Nerve damage of left foot ?G57.92 - Unspecified mononeuropathy of left lower limb (ICD-10) Hypothyroidism ?E03.9 - Hypothyroidism, unspecified (ICD-10) Hypertension ?I10 - Essential (primary) hypertension (ICD-10) High cholesterol ?E78.00 - Pure hypercholesterolemia, unspecified (ICD-10) Herniation of right side of L4-L5 intervertebral disc ?M51.26 - Other intervertebral disc displacement, lumbar region (ICD-10) GI problem ?R19.8 - Other specified symptoms and signs involving the digestive system and abdomen (ICD-10) Diabetes 1.5, managed as type 2 ?E13.9 - Other specified diabetes mellitus without complications (ICD-10) Asthma ?J45.909 - Unspecified asthma, uncomplicated (ICD-10) Anemia ?D64.9 - Anemia, unspecified (ICD-10) Surgical History H/O: hysterectomy ?Z90.710 - Acquired absence of both cervix and uterus (ICD-10) Hx of tonsillectomy ?Z90.89 - Acquired absence of other organs (ICD-10) Total knee replacement status ?Z96.659 - Presence of unspecified artificial knee joint (ICD-10) S/P surgery on nasal septum ?Z98.890 - Other specified postprocedural states (ICD-10) History of arthroscopic knee surgery ?Z98.890 - Other specified postprocedural states (ICD-10) History of discectomy ?Z98.890 - Other specified postprocedural states (ICD-10) History of cholecystectomy ?Z90.49 - Acquired absence of other specified parts of digestive tract (ICD-10) History of appendectomy ?Z90.49 - Acquired absence of other specified parts of digestive tract (ICD-10) Family History (Updated 08/27/23 @ 13:[address] RN) Mother Arthritis Asthma Family history of hypertension Hyperlipidemia Family history of stroke Father Arthritis Family history of diabetes mellitus Family history of hypertension Alzheimer's disease Other Family history of cancer Social History (Updated 08/27/23 @ 13:[address] RN) Within the past year, how often did you have a drink containing alcohol: never Score interpretation: A score less than 3 is consistent with normal alcohol consumption. Smoking status: Never smoker Second hand tobacco smoke exposure: No Non-prescribed substance use: denies use Previous occupational history: disability Highest level of school completed/degree received: high school graduate Little interest or pleasure in doing things: not at all Feeling down, depressed, or hopeless: not at all Meds Home Medications and Allergies Home Medications ?Medication ?Instructions ?Recorded ?Confirmed ?Type dulaglutide 4.5 mg/0.5 mL 4.5 mg subcut QWEEK 08/26/23 11/08/24 History subcutaneous pen injector (Trulicity) fenofibrate 160 mg tablet 160 mg PO DAILY 08/26/23 11/08/24 History fluticasone propionate 50 1 spray intranasal DAILY PRN nasal 08/26/23 11/08/24 History mcg/actuation nasal congestion spray,suspension (Flonase Allergy Relief) insulin regular hum U-500 conc 500 150 unit subcut QPM 08/26/23 11/09/24 History unit/mL subcutaneous soln (Humulin R U-500 (Concentrated) Insulin) levothyroxine 175 mcg capsule 175 mcg PO .ACB 08/26/23 11/09/24 History nystatin 100,000 unit/gram topical 1 applic topical DAILY PRN rash 08/26/23 11/08/24 History cream pantoprazole 40 mg tablet,delayed 40 mg PO BID 08/26/23 11/08/24 History release (Protonix) clopidogrel 75 mg tablet 75 mg PO DAILY 10/06/24 11/08/24 History lisinopril 10 mg tablet 10 mg PO DAILY 10/06/24 11/08/24 History pregabalin 100 mg capsule (Lyrica) 100 mg PO TID 10/06/24 11/08/24 History evolocumab 140 mg/mL subcutaneous 140 mg subcut .Q2WKS 10/21/24 11/08/24 History pen injector (Repatha SureClick) insulin pump cart,cont inf,BT 10/21/24 11/09/24 History (Omnipod Dash Pods (Gen 4) subcutaneous cartridge) metoprolol tartrate 100 mg tablet 100 mg PO BID 10/21/24 11/08/24 History furosemide 40 mg tablet 40 mg PO BID 11/09/24 11/09/24 History Allergies Allergy/AdvReac Type Severity Reaction Status Date / Time azithromycin Allergy Severe Hives Verified 10/06/24 12:35 cephalexin Allergy Severe Hives Verified 10/06/24 12:35 ciprofloxacin Allergy Severe Hives Verified 10/06/24 12:35 doxycycline Allergy Severe Hives Verified 10/21/24 15:00 Penicillins Allergy Severe Anaphylaxis Verified 10/06/24 12:35 sulfamethoxazole Allergy Severe Anaphylaxis Verified 10/06/24 12:35 sulfanilamide Allergy Severe Anaphylaxis Verified 10/06/24 12:35 trimethoprim Allergy Severe Anaphylaxis Verified 10/06/24 12:35 acetaminophen (From Percocet) AdvReac Severe Vomiting Verified 10/06/24 12:35 aspirin AdvReac Severe Vomiting Verified 10/06/24 12:35 cefprozil (From Cefzil) AdvReac Severe Hives Verified 10/06/24 12:35 moxifloxacin (From Avelox) AdvReac Severe Hives Verified 10/06/24 12:35 oxycodone (From Percocet) AdvReac Severe Vomiting Verified 10/06/24 12:35 Exam Constitutional Vital Signs, click to edit/add: Last Vital Signs Temp 97.4 F L 11/10/24 17:12 Pulse 83 11/10/24 18:00 Resp 20 11/10/24 17:12 BP 160/85 H 11/10/24 17:12 Pulse Ox 91 L 11/10/24 17:12 O2 Del Method Nasal Cannula 11/10/24 17:12 O2 Flow Rate 1.5 11/10/24 17:12 Common normals: oriented x3 General appearance: cooperative and comfortable Nutritional appearance: obese Orientation/consciousness: Yes oriented to person, Yes oriented to place and Yes oriented to time Eye Common normals: conjunctivae normal Chest Common normals: inspection of chest normal Respiratory Auscultation: diminished lung sounds Cardio Common normals: no JVD, regular rate, regular rhythm, S1 normal heart sound, S2 normal heart sound and no murmurs Peripheral pulses: radial pulses present GI Common normals: Normal to inspection, nondistended, normoactive bowel sounds present Extremity General: edema Neuro Common normals: no focal motor deficits and no sensory deficits noted Psych Attention/concentration: attention grossly intact Memory/cognition: memory grossly intact Insight: insight good Judgement: judgment good Results Labs and Meds Lab results: Cardiac Enzymes 11/10/24 Range/Units 05:10 AST 16 (15-37) U/L CBC 11/10/24 Range/Units 05:10 WBC 8.7 (4.0-11.0) 10^3/uL RBC 3.20 L (4.20-5.40) 10^6/uL Hgb 9.9 L (12.0-16.0) g/dL Hct 30.7 L (36.0-48.0) % Plt Count 184 (150-450) 10^3/uL Neut # (Auto) 6.3 (1.4-6.5) 10^3/uL Lymph # (Auto) 1.7 (1.2-3.8) 10^3/uL [place] # (Auto) 0.5 (0.3-0.8) 10^3/uL Eos # (Auto) 0.2 (0.0-0.7) 10^3/uL Baso # (Auto) 0.0 (0.0-0.1) 10^3/uL Comprehensive Metabolic Panel 11/10/24 Range/Units 05:10 Sodium 143 (136-145) mmol/L Potassium 4.1 (3.5-5.1) mmol/L Chloride 102 (98-107) mmol/L Carbon Dioxide 28.4 (21.0-32.0) mmol/L BUN 48.0 H (7.0-18.0) mg/dL Creatinine 1.69 H (0.55-1.02) mg/dL Glucose 156 H (74-106) mg/dL Calcium 9.5 (8.5-10.1) mg/dL AST 16 (15-37) U/L ALT 22 (14-59) U/L Alkaline Phosphatase 56 (46-116) U/L Total Protein 6.8 (6.4-8.2) g/dL Albumin 3.1 L (3.4-5.0) g/dL Intake and Output 06/11/25 06/11/25 06/11/25 07:59 15:59 23:59 Intake Total 473.333 / 2551.166 50 / 50 0 / 50 Output Total 1625 / 6675 Balance -1151.667 / -4123.834 50 / 50 0 / 50 Intake: Oral 300 / 1300 IV 173.333 / 1251.166 50 / 50 0 / 50 0.9 % Sodium Chloride 250 ml @ 123.333 / 201.166 0 / 0 10 mls/hr IV .Q24H PRN Rx#: [id number] Aztreonam 1,000 mg In 0.9 % 50 / 150 50 / 50 Sodium Chloride 50 ml @ 100 mls /hr IV Q8H [facility] Rx#:[id number] Output: Urine Amount (Catheter) 1625 / 4525 Urethral 1625 / 4525 Other: Weight 118.8 kg EKG Interpretation EKG: sinus rhythm, normal QRS and no acute changes Assessment and Plan Assessment and Plan (1) Elevated brain natriuretic peptide (BNP) level: (2) Essential hypertension: (3) CAD (coronary artery disease): Qualifiers: Coronary Disease-Associated Artery/Lesion type: [place] artery [place] vs. transplanted heart: [place] heart Associated angina: without angina Qualified Code(s): I25.10 - Atherosclerotic heart disease of [place] coronary artery without angina pectoris (4) Chronic kidney disease, stage III (moderate): Qualifiers: Chronic kidney disease stage 3 subtype: stage 3b (GFR 30-44) Qualified Code(s): N18.32 - Chronic kidney disease, stage 3b (5) PETRA (obstructive sleep apnea): (6) Multifocal pneumonia: Plan 1. Elevated natruretic peptide levels, lower extremity edema and volume overload on exam: I think she has right-sided heart failure based on the results of the recent echocardiogram in September 2024 which would be likely related to her untreated obstructive sleep apnea, recurrent respiratory failure and hypoxia with recurrent pneumonias. She has responded to diuretic therapy. I would recommend shifting to p.o. diuretic therapy in the next 1 day or so maintenance of furosemide 40 mg daily. 2. Hypertension: This is not controlled. I recommend adding amlodipine 10 mg daily. 3. CAD: No angina. Her chest pain is musculoskeletal related to coughing and is due to the active pneumonia. She has mild CAD by cardiac catheterization in 2020. She is maintained on PCSK9 inhibitor. She is also maintained on clopidogrel as she could not tolerate aspirin. Continue the same. 4. Continue to monitor renal function given her stage IIIb CKD while she is being actively diuresed. 5. Further recommendations regarding treatment of sleep apnea and pneumonia per Dr. Chatterjee and pulmonary energy sales consultant. We can see her in follow-up in our office after discharge.
[2024-11-10] MEDS: AMLODIPINE BESYLATE 5 MG TABLET 10 MG PO (19:32)
[2024-11-10 21:23] LABS: Glucometer 196 mg/dL (74-106)
[2024-11-11] VITALS (21 sets, daily range): BP systolic 119–145; BP diastolic 59–81; PULSE 66–81; TEMP 36.3–36.6; O2SAT 93–98
[2024-11-11] MEDS: AZTREONAM 1,000 MG in 0.9 % SODIUM CHLORIDE 50 ML 100 MG IV ×3 (04:08→23:18)
[2024-11-11] MEDS: LEVALBUTEROL HCL 0.63 MG/3 ML VIAL.NEB IH ×4 (04:37→20:15)
[2024-11-11] MEDS: IPRATROPIUM BROMIDE 0.5 MG/2.5 ML VIAL.NEB IH ×4 (04:37→20:15)
[2024-11-11] MEDS: SODIUM CHLORIDE 3% INHALATION 15 ML NEB 3 ML IH ×2 (04:37→15:19)
[2024-11-11] MEDS: PREGABALIN 100 MG CAPSULE PO ×3 (05:57→22:01)
[2024-11-11] MEDS: LEVOTHYROXINE SODIUM 75 MCG TABLET PO (05:57)
[2024-11-11] MEDS: LEVOTHYROXINE SODIUM 100 MCG TABLET PO (05:57)
[2024-11-11 06:03] LABS: Basophils Percent Auto 0.4 % (0.2-2.0); Eosinophils Absolute Auto 0.3 10^3/uL (0.0-0.7); Eosinophils Percent Auto 6.6 % (0.9-7.0); Hematocrit 28.8 % (36.0-48.0); Hemoglobin 9.3 g/dL (12.0-16.0); Immature Granulocytes Abs Auto 0.04 10^3/uL (0.00-0.03); Immature Granulocytes Pct Auto 0.8 % (0.0-0.5); Lymphocytes Absolute Auto 1.4 10^3/uL (1.2-3.8); Lymphocytes Percent Auto 27.4 % (20.5-60.0); Mean Corpuscular HGB Conc 32.3 g/dL (29.9-35.2); Mean Corpuscular Hemoglobin 30.9 pg (26.7-34.0); Mean Corpuscular Volume 95.7 fL (81.0-99.0); Mean Platelet Volume 11.8 fL (9.5-13.5); Monocytes Absolute Auto 0.4 10^3/uL (0.3-0.8); Monocytes Percent Auto 8.8 % (1.7-12.0); Neutrophils Absolute Auto 2.8 10^3/uL (1.4-6.5); Platelet Count 150 10^3/uL (150-450); Red Blood Count 3.01 10^6/uL (4.20-5.40); Red Cell Distribution Width 14.5 % (11.0-15.0)
[2024-11-11 06:32] LABS: Alanine Aminotransferase 18 U/L (14-59); Albumin Globulin Ratio 0.8; Albumin Level 2.5 g/dL (3.4-5.0); Alkaline Phosphatase 48 U/L (46-116); Anion Gap 12.8; Aspartate Amino Transferase 14 U/L (15-37); BUN Creatinine Ratio 31.8; Bilirubin Total 0.4 mg/dL (0.2-1.0); Calcium 8.5 mg/dL (8.5-10.1); Carbon Dioxide 29.5 mmol/L (21.0-32.0); Chloride 103 mmol/L (98-107); Estimated GFR (African America 35 (>=60 mL/min/1.73m^2); Estimated GFR (Non-African Ame 29 (>=60 mL/min/1.73m^2); Globulin 3.1 g/dL; Glucose 284 mg/dL (74-106); Potassium 4.3 mmol/L (3.5-5.1); Sodium 141 mmol/L (136-145); Total Protein 5.6 g/dL (6.4-8.2)
--- NOTE | 2024-11-11 06:52 | PM.PLPN ---
Progress Note: A&P Assessment and Plan (1) Multifocal pneumonia: Assessment and Plan: 1. Pneumonia, bilateral. Clinically improving. As per recommendations yesterday, they remain unchanged. Continue aztreonam 1g IV Q8H and vancomycin currently 2gm IV Q24 (pharmacy to dose) for a total of 10 days of therapy (day 1 being admission on 11/08/2024). PICC placed yesterday. 2. Severe sepsis. Secondary to #1. Clinically improving. 3. Weofk-di-cktxofu respiratory failure with hypoxia. Remains on O2 @ 2L/min ~baseline. Continue O2. 4. Exacerbation of severe persistent asthma. Restart Symbicort + Spiriva @ discharge. 5. Bilateral pleural effusions. Treating via diuresis. No worsening on CXR. 6. Metabolic acidosis. Question combination of severe sepsis +/- DKA. 7. DM-2. Monitor FSBS. 8. 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 Cr and GFR beginning to creep up d/t diuretics, but she has had good diuresis. 9. Hyperkalemia. Resolved. 10. Normocytic anemia. Improved. 11. Morbid obesity. BMI 48.5 on admission. Weight loss. Plan Patient absolutely needs to F/U with me in the office - has been ~14 months since she was last seen and she will need refills of her medications. Subjective Subjective Interval history: Patient is sleepy this morning - I woke her up. She states her breathing is doing better. SpO2 maintained on 2L/min. PICC placed - CXR confirms good placement. No worsening of infiltrates. Other than the questionable BC, no other cultures have returned positive. Case discussed with Dr. Chatterjee @ patient's bedside. Exam Narrative Exam Narrative: Exam Narrative: No conversational dyspnea. Constitutional: Morbidly obese Skin: No rash. No cyanosis. HEENT: Nasal cannula. She has developed mild oral candidiasis in the posterior soft palate. Chest: Thoracic kyphosis Lungs: Air movement continues to improve - decreased crackles. No wheezes. CV: RRR Abdomen: Excessive central adiposity. Extremities: Wearing compression stockings Neuro: No fasciculations or seizure activity Psych: Sleepy but pleasant. Constitutional Vital Signs, click to edit/add: Last Vital Signs Temp 97.4 F L 11/11/24 04:10 Pulse 73 11/11/24 05:52 Resp 20 11/11/24 04:38 BP 134/75 11/11/24 04:10 Pulse Ox 94 L 11/11/24 04:38 O2 Del Method Nasal Cannula 11/11/24 04:38 O2 Flow Rate 2 11/11/24 04:38
[2024-11-11 08:02] LABS: Glucometer 298 mg/dL (74-106)
--- NOTE | 2024-11-11 08:06 | P.DS_ITS ---
DS: Providers Provider Date of admission: 11/08/24 18:14 Primary care physician: RICHELLE FOURNIER Consults: 11/08/24 16:04 Consult to Pulmonology Routine Consulting Provider: Cayden Viveros Reason for consultation: pt, multifocal pneumonia Has provider been notified: Yes 11/08/24 18:31 Consult to Pharmacy Routine Consulting Provider: Reason for consultation: Please [place] me when Med Rec is Updated Has provider been notified: No 11/08/24 18:41 Consult to Cardiology Routine Reason for consultation: chf Has provider been notified: No 11/09/24 07:52 Consult to [place] Routine Reason for consult:: Correction Other reason:: likely will need rehab 11/09/24 09:13 Occupational Therapy Eval and Treat Routine Reason for consultation: eval and treat rehab Has provider been notified: No Physical Therapy Eval and Treat Routine Reason for consultation: eval and treat Has provider been notified: No 11/10/24 08:35 Consult to PICC Line RN Routine Consulting Provider: Kamran Chatterjee Reason for consultation: lonmg term IV ab Consult to [place] Routine Reason for consult:: Home Health Other reason:: senior living out-pt iv ab - 14 days minimum DS: Diagnosis Discharge Diagnosis (1) Multifocal pneumonia: (2) PETRA (obstructive sleep apnea): (3) CAD (coronary artery disease): Qualifiers: Coronary Disease-Associated Artery/Lesion type: [place] artery [place] vs. transplanted heart: [place] heart Associated angina: without angina Qualified Code(s): I25.10 - Atherosclerotic heart disease of [place] coronary artery without angina pectoris (4) Essential hypertension: (5) Elevated brain natriuretic peptide (BNP) level: Plan Admission findings: Sinus tachycardia, respiratory distress with acute hypoxia with chronic hypoxic respiratory failure, elevated blood pressure on admission, acute hypoxia with O2 sat of 91% on 3 L normal white blood cell count but with left shift consistent with a bacterial process, hyperkalemia, severe elevation in glucose, elevated BNP all consistent with multifocal pneumonia causing acute exacerbation of COPD and resulting in sepsis (tachycardia, respiratory distress, known infectious source of lungs) Multifocal pneumonia resulting in sepsis with acute exacerbation of chronic hypoxic respiratory failure and acute hypoxia-see pulmonology notes Acute combined congestive heart failure secondary to the sepsis as outlined above-excellent diuresis, net of 8.9 L diuresed Bilateral pleural effusions-diuresis, can consider repeating chest q-[id number]-[id number]-up chest x-ray Anemia likely combination of iron deficiency as well as renal-monitor daily- improved slightly Uncontrolled diabetes mellitus-likely to be worse with treatment for the above, insulin sliding scale plus her home high-so far doing well with the higher dose sliding scale, will maintain that and DC the every 8 hours insulin Chronic kidney disease stage III-up somewhat from diuresis as expected Hyperkalemia-resolved Coronary artery disease secondary to hypercholesterolemia-consult to cardiology maintain current medications Hypothyroidism-check levels Hypertension-stable GERD-use home medications Diabetic peripheral neuropathy as a complication of poorly controlled diabetes mellitus-continue with home medications Admissions status: Patient now with acute exacerbation of asthma secondary multifocal pneumonia resulting in sepsis and acute combined congestive heart failure with acute hypoxia on top of chronic hypoxic respiratory failure, medically necessary treatment will span 2 midnights. Inpatient status DS: Summary Hospital Course Hospital Course: Patient admitted with increasing cough and shortness of breath, found to have acute combined congestive heart failure secondary to multi focal pneumonia resulting in sepsis, with acute hypoxic respiratory failure, patient diuresed well over the course the hospitalization receiving Bumex drip on 2 occasions, she diuresed almost 9 L net. Pneumonia also improving, white blood cell count stable at the time of discharge, productive cough improving and lung exam is clearing, see pulmonology notes, recommendation for outpatient IV antibiotics the patient's had multiple hospitalizations, she was restarted on her home diuretics with still excellent diuresis yesterday, sugar was difficult to maintain initially with severe hyperglycemia but that is improving at the time of discharge as well. Medications see list. See pulmonology and PCP at discharge within the next week. Time Spent with Patient Time attestation: Total time spent providing and/or coordinating discharge services: Exam Constitutional Vital Signs, click to edit/add: Last Vital Signs Temp 97.4 F L 11/11/24 04:10 Pulse 73 11/11/24 05:52 Resp 20 11/11/24 04:38 BP 134/75 11/11/24 04:10 Pulse Ox 94 L 11/11/24 04:38 O2 Del Method Nasal Cannula 11/11/24 04:38 O2 Flow Rate 2 11/11/24 04:38 Documenting provider has reviewed patient's vital signs: yes Common normals: no apparent distress (Mild respiratory distress with conversational dyspnea) Chest Common normals: inspection of chest normal Respiratory Common normals: abnormal respiratory effort (Mild conversational dyspnea with respiratory distress) and not clear to ascultation bilaterally Auscultation: rhonchi (minimal); no rales (Bases) and no wheezes (None noted but just with aerosol treatment) Cardio Common normals: regular rate, regular rhythm and no murmurs GI Common normals: soft to palpation and non-tender; negative for Normal to inspection, nondistended, normoactive bowel sounds present (Morbidly obese) Extremity Common normals: abnormal to inspection (1-2+ edema bilateral lower extremities, improved) and clubbing, cyanosis or edema DS: Data Data Completed and Pending Labs on day of discharge: Labs from last 24 hours 11/11/24 11/11/24 11/10/24 08:00 05:55 21:22 WBC 5.0 RBC 3.01 L Hgb 9.3 L Hct 28.8 L MCV 95.7 MCH 30.9 MCHC 32.3 RDW 14.5 Plt Count 150 MPV 11.8 Neut % (Auto) 56.0 Lymph % (Auto) 27.4 [place] % (Auto) 8.8 Eos % (Auto) 6.6 Baso % (Auto) 0.4 Neut # (Auto) 2.8 Lymph # (Auto) 1.4 [place] # (Auto) 0.4 Eos # (Auto) 0.3 Baso # (Auto) 0.0 Abs Immat Gran (auto) 0.04 H Imm/Tot Granulo (auto) 0.8 H Sodium 141 Potassium 4.3 Chloride 103 Carbon Dioxide 29.5 Anion Gap 12.8 BUN 57.0 H Creatinine 1.79 H Est GFR ( Amer) 35 L Est GFR (Non-Af Amer) 29 L BUN/Creatinine Ratio 31.8 Glucose 284 H Calcium 8.5 Total Bilirubin 0.4 AST 14 L ALT 18 Alkaline Phosphatase 48 NT-Pro-B Natriuret Pep 1303.0 H* Total Protein 5.6 L Albumin 2.5 L Globulin 3.1 Albumin/Globulin Ratio 0.8 Staphylococcus sp PCR Staph aureus (PCR) mecA/C-Methicil Resis Gene POC Glucose 298 H 196 H 11/10/24 11/10/24 11/08/24 16:29 11:05 14:34 WBC RBC Hgb Hct MCV MCH MCHC RDW Plt Count MPV Neut % (Auto) Lymph % (Auto) [place] % (Auto) Eos % (Auto) Baso % (Auto) Neut # (Auto) Lymph # (Auto) [place] # (Auto) Eos # (Auto) Baso # (Auto) Abs Immat Gran (auto) Imm/Tot Granulo (auto) Sodium Potassium Chloride Carbon Dioxide Anion Gap BUN Creatinine Est GFR ( Amer) Est GFR (Non-Af Amer) BUN/Creatinine Ratio Glucose Calcium Total Bilirubin AST ALT Alkaline Phosphatase NT-Pro-B Natriuret Pep Total Protein Albumin Globulin Albumin/Globulin Ratio Staphylococcus sp PCR Detected A* Staph aureus (PCR) Not detected mecA/C-Methicil Resis Gene Not detected POC Glucose 296 H 206 H Preliminary micro results at discharge 11/08/24 14:34 Blood Culture Result 2 - Preliminary Blood 11/08/24 13:55 Blood Culture Result 1 - Preliminary Blood NO GROWTH AT 36-48 HOURS. FINAL TO FOLLOW. 11/08/24 14:34 Aerobic Susc Result 2 - Preliminary Blood 11/09/24 08:40 Urine Culture - Preliminary Urine,Clean Catch Pending - Specimen sent to [facility] Discharge Plan Discharge Disposition: Home Health Service Discharge Medications: New nystatin 100,000 unit/mL Suspension 500,000 unit PO QID 10 Days Qty: 200 0RF Invokana 100 mg Tablet 100 mg PO QD Qty: 30 11RF Entresto 24-26 mg Tablet 1 tab PO BID Qty: 60 11RF vancomycin 2 gram recon soln 2 g IV Q24H 10 Days aztreonam 1 gram recon soln 1 g IV Q8H Qty: 30 0RF aztreonam 1 gram recon soln 1 g IM Q8H Qty: 30 0RF vancomycin 2 gram recon soln 2 g IV Q24H 10 Days vancomycin 2 gram recon soln 2 g IV Q24H Continued clopidogrel 75 mg tablet 75 mg PO DAILY lisinopril 10 mg tablet 10 mg PO DAILY pregabalin [Lyrica] 100 mg capsule 100 mg PO TID fenofibrate 160 mg tablet 160 mg PO DAILY fluticasone propionate [Flonase Allergy Relief] 50 mcg/actuation spray,suspension 1 spray intranasal DAILY PRN (Reason: nasal congestion) Rx Instructions: administer into each nostril Humulin R U-500 (Conc) Insulin 500 unit/mL solution 150 unit subcut QPM levothyroxine 175 mcg capsule 175 mcg PO .ACB pantoprazole [Protonix] 40 mg tablet,delayed release (DR/EC) 40 mg PO BID Trulicity 4.5 mg/0.5 mL pen injector 4.5 mg subcut QWEEK Rx Instructions: friday nystatin 100,000 unit/gram cream 1 applic topical DAILY PRN (Reason: rash) Repatha SureClick 140 mg/mL pen injector 140 mg SUBCUT .Q2WKS metoprolol tartrate 100 mg tablet 100 mg PO BID (DME) Omnipod Dash Pods (Gen 4) Cartridge SUBCUT furosemide 40 mg tablet 40 mg PO BID Print Language: Upper Sorbian Patient Instructions: How to Care for Your PICC (Peripherally Inserted Central Catheter) (DC) Forms: Portal Instructions
--- NOTE | 2024-11-11 08:38 | SWNOTE1 ---
Pt is going home with IV antibiotics. DERRICK faxed script, labs, face sheet, PICC line info, and progress note to [facility]. DERRICK called Hilario at [facility] and since pt lives in [place], they will be the ones servicing. DERRICK had message from [facility] and they can't accept as other company has not discharged out of the system. DERRICK called [facility] and spoke to business office and they will discharge her out.
--- NOTE | 2024-11-11 08:45 | SWNOTE1 ---
SW called [facility] and they are able to accept.
[2024-11-11] MEDS: AMLODIPINE BESYLATE 5 MG TABLET 10 MG PO (08:48)
[2024-11-11] MEDS: SACUBITRIL/VALSARTAN 24 MG-26 MG TABLET 1 TAB PO ×2 (08:48→22:01)
[2024-11-11] MEDS: FENOFIBRATE 54 MG TABLET 162 MG PO (08:48)
[2024-11-11] MEDS: GUAIFENESIN 600 MG TAB.ER.12H 1200 MG PO ×2 (08:48→22:00)
[2024-11-11] MEDS: CLOPIDOGREL BISULFATE 75 MG TABLET PO (08:48)
[2024-11-11] MEDS: ACETAMINOPHEN 500 MG TABLET 1000 MG PO ×2 (08:48→18:44)
[2024-11-11] MEDS: CANAGLIFLOZIN 100 MG TABLET PO (08:48)
[2024-11-11] MEDS: PANTOPRAZOLE SODIUM 40 MG TABLET.DR PO ×2 (08:49→22:02)
[2024-11-11] MEDS: FUROSEMIDE 40 MG TABLET PO ×2 (08:49→22:01)
[2024-11-11] MEDS: INSULIN ASPART 300 UNIT/3 ML PEN SUBQ ×4 (08:49→22:02)
[2024-11-11] MEDS: NYSTATIN 500,000 UNIT/5 ML ORAL.SUSP 500000 UNIT PO ×4 (08:49→22:01)
[2024-11-11] MEDS: METOPROLOL TARTRATE 100 MG TABLET PO ×2 (08:49→22:01)
[2024-11-11] MEDS: BUDESONIDE 0.5 MG/2 ML AMPULE NEB IH ×2 (11:02→20:15)
--- NOTE | 2024-11-11 11:27 | SWNOTE1 ---
SW called [facility] ([facility]) and they have received referral and are working on it.
[2024-11-11] MEDS: POLYETHYLENE GLYCOL 3350 17 GM POWDER PACKET PO (11:32)
--- NOTE | 2024-11-11 11:41 | PT.DAILY ---
Physical Therapy Daily Note PT Daily Note/Assess Start: 11/11/24 11:32 Freq: Status: Active Protocol: Document 11/11/24 11:32 [id number] (Rec: 11/11/24 11:41 [id number]) Physical Therapy Daily Note/Assessment Time In/Time Out Time In 10:43 Time Out 10:55 Pain In Pain Level 2 Pain Out Pain Level 2 Subjective Subjective Patient received supine in bed and agreeable to participating with PT. Patient states her pain is in both hips and low back. Patient states she hopes to go home today. Patient on 1-2 L of O2 via NC. Therapeutic Exercise Time Therapeutic Exercise 3 Minutes (minutes) Therapeutic Exercise 0 Units Therapeutic Exercise Treatment Therapeutic Exercise Patient performed supine LUCITA LE ther ex for Treatment strengthening to improve gait and functional mobility for ankle pumps, quad sets. Seated in chair at bedside for toe/heel raises, LAQ's and MRE hip ABD/ADD. Patient SPO2 level prior to ther ex 94%. Therapeutic Activity Time Therapeutic Activity 9 Minutes (minutes) Therapeutic Activity 1 Units Therapeutic Activity Treatment Bed Mobility Ability Standby Assistance,Contact Guard Assist Chair Transfer Standby Assistance Ability Therapeutic Activity Bed mobility: supine to L sit with use of L hand rail Comments is SBA to CGA +1. Sit to stand to LBQC is SBA +1. Patient ambulated ~ 130 feet in room with LBQC with SBA +1, MIN A for O2 line and urine cath bag. Patient limited by length of O2 line. Patient seated in chair at bedside. SPO2 level post walking 85%. VC's for breathing, SPO2 level increased to 93%. CBWR and all needs met. Total Physical Therapy Time Total Therapy 12 Minutes Total Physical 1 Therapy Units Summary Daily Note Summary Patient limited on ambulation distance progression secondary to desaturating with exertion. Patient would benefit from HH PT upon D/C to address functional deficits and return to PLOF.
--- NOTE | 2024-11-11 11:58 | SWNOTE1 ---
SW received call from [facility] in regards to pt's home IV antibiotics. She advised that pt will have a co-pay amount for supplies and nurse, but she has to check with her team about the cost due to pt's insurance. She voiced they will need Vanco trough as well. She stated that pt has to use there nurse due to her insurance, but SW advised that pt is set with [facility] and that pt should be able to use there nurse. She voiced she will call back once she checks with her team. She will also coordinate with [facility] .
--- NOTE | 2024-11-11 13:19 | SWNOTE1 ---
SW received another call from [facility] and they left message. She stated due to pt's insurance that [facility] has to provide the nurse and they just need Vanco trough. DERRICK called and spoke to Renee at [facility]. She voiced if pt was only getting nurse then that would be the case, but if pt needs other services such as therapy, then [facility] nurse would provide services. [facility] could not do PT/OT without having nurse going in as well. [facility].
--- NOTE | 2024-11-11 14:19 | SWNOTE1 ---
SW updated pt in regard to the antibiotics she will need at discharge. SW checked with pt to see if she would have a ride home later this evening. Pt is going to check.
--- NOTE | 2024-11-11 14:56 | SWNOTE1 ---
DERRICK received call [facility] and they have spoke to [facility] and they are bundling with [facility] for nursing and all is well. [facility] just needs CRF sent over along with dc med rec and script for home IV's. SW to send over. SW faxed CRF, dc med rec, dc summary, and script for IV anbx. DERRICK spoke to pt and she will have a ride home from a friend. She told her friend it will be after 7:00pm. Pt will get her dose of Vanco here and her last dose of Aztreonam prior to discharge. [facility] did voice that [facility] told them they would deliver meds tonight and [facility] plans on starting care tomorrow morning.
[2024-11-11 15:43] LABS: Vancomycin Trough 31.9 ug/mL (5.0-20.0)
--- NOTE | 2024-11-11 16:00 | SWNOTE1 ---
DERRICK faxed vanco trough to [facility] along with labs. All labs sent to [facility] along with discharge orders. DERRICK stopped in pt's room and she was on the phone with [facility]. Pt will discharge this evening and have [facility].
--- NOTE | 2024-11-11 16:43 | SWNOTE1 ---
DERRICK received call from [facility]. Pharmacist at [facility] voiced that pt should stay at hospital due to elevated vanco trough levels and FRONT END ARCHITECT increasing as well. She also stated the nurse from [facility] can't come out and take trough in morning and then return to administer IV anbx. At this time they are advising pt should stay until another trough level is drawn. DERRICK updated nurse and pharmacy was on floor as well and she is aware of tough needing to be ordered. DERRICK updated Dr. Chatterjee as well.
[2024-11-11 17:32] LABS: Glucometer 177 mg/dL (74-106)
[2024-11-11 22:01] LABS: Glucometer 212 mg/dL (74-106)
[2024-11-11] MEDS: 0.9 % SODIUM CHLORIDE 250 ML 100 ML IV (23:18)
[2024-11-12] VITALS (15 sets, daily range): BP systolic 111–147; BP diastolic 69–74; PULSE 74–92; TEMP 36.6–36.7; O2SAT 92–97
[2024-11-12] MEDS: LEVALBUTEROL HCL 0.63 MG/3 ML VIAL.NEB IH ×3 (05:19→16:02)
[2024-11-12] MEDS: SODIUM CHLORIDE 3% INHALATION 15 ML NEB 3 ML IH ×2 (05:20→16:02)
[2024-11-12] MEDS: IPRATROPIUM BROMIDE 0.5 MG/2.5 ML VIAL.NEB IH ×3 (05:20→16:02)
[2024-11-12 05:47] LABS: Basophils Percent Auto 0.2 % (0.2-2.0); Eosinophils Absolute Auto 0.4 10^3/uL (0.0-0.7); Eosinophils Percent Auto 7.8 % (0.9-7.0); Hematocrit 28.4 % (36.0-48.0); Hemoglobin 9.1 g/dL (12.0-16.0); Immature Granulocytes Abs Auto 0.03 10^3/uL (0.00-0.03); Immature Granulocytes Pct Auto 0.6 % (0.0-0.5); Lymphocytes Absolute Auto 1.5 10^3/uL (1.2-3.8); Lymphocytes Percent Auto 30.2 % (20.5-60.0); Mean Corpuscular Hemoglobin 30.4 pg (26.7-34.0); Mean Platelet Volume 12.3 fL (9.5-13.5); Monocytes Absolute Auto 0.3 10^3/uL (0.3-0.8); Neutrophils Absolute Auto 2.6 10^3/uL (1.4-6.5); Neutrophils Percent Auto 54.2 % (43.0-75.0); Platelet Count 165 10^3/uL (150-450); Red Blood Count 2.99 10^6/uL (4.20-5.40); Red Cell Distribution Width 14.4 % (11.0-15.0); White Blood Count 4.9 10^3/uL (4.0-11.0)
[2024-11-12] MEDS: PREGABALIN 100 MG CAPSULE PO ×2 (05:51→14:55)
[2024-11-12] MEDS: LEVOTHYROXINE SODIUM 100 MCG TABLET PO (05:51)
[2024-11-12] MEDS: LEVOTHYROXINE SODIUM 75 MCG TABLET PO (05:51)
[2024-11-12] MEDS: NYSTATIN 500,000 UNIT/5 ML ORAL.SUSP 500000 UNIT PO ×2 (05:51→11:39)
[2024-11-12 06:13] LABS: Alanine Aminotransferase 16 U/L (14-59); Albumin Globulin Ratio 0.7; Albumin Level 2.3 g/dL (3.4-5.0); Alkaline Phosphatase 53 U/L (46-116); Anion Gap 11.8; Aspartate Amino Transferase 13 U/L (15-37); BUN Creatinine Ratio 31.1; Bilirubin Total 0.3 mg/dL (0.2-1.0); Calcium 8.5 mg/dL (8.5-10.1); Carbon Dioxide 30.4 mmol/L (21.0-32.0); Chloride 103 mmol/L (98-107); Estimated GFR (African America 35 (>=60 mL/min/1.73m^2); Estimated GFR (Non-African Ame 29 (>=60 mL/min/1.73m^2); Globulin 3.4 g/dL; Glucose 170 mg/dL (74-106); Potassium 4.2 mmol/L (3.5-5.1); Sodium 141 mmol/L (136-145); Total Protein 5.7 g/dL (6.4-8.2)
--- NOTE | 2024-11-12 07:46 | P.DS_ITS ---
DS: Providers Provider Date of admission: 11/08/24 18:14 Primary care physician: ANN FOURNIER Consults: 11/08/24 16:04 Consult to Pulmonology Routine Consulting Provider: Cayden Viveros Reason for consultation: pt, multifocal pneumonia Has provider been notified: Yes 11/08/24 18:31 Consult to Pharmacy Routine Consulting Provider: Reason for consultation: Please [place] me when Med Rec is Updated Has provider been notified: No 11/08/24 18:41 Consult to Cardiology Routine Reason for consultation: chf Has provider been notified: No 11/09/24 07:52 Consult to Extract Puller Routine Reason for consult:: [facility] Other reason:: likely will need rehab 11/09/24 09:13 Occupational Therapy Eval and Treat Routine Reason for consultation: eval and treat rehab Has provider been notified: No Physical Therapy Eval and Treat Routine Reason for consultation: eval and treat Has provider been notified: No 11/10/24 08:35 Consult to PICC Line RN Routine Consulting Provider: Kamran Chatterjee Reason for consultation: lonmg term IV ab Consult to Extract Puller Routine Reason for consult:: Home Health Other reason:: nursing home out-pt iv ab - 14 days minimum DS: Diagnosis Discharge Diagnosis (1) Multifocal pneumonia: (2) PETRA (obstructive sleep apnea): (3) CAD (coronary artery disease): Qualifiers: Coronary Disease-Associated Artery/Lesion type: hughes artery [place] vs. transplanted heart: hughes heart Associated angina: without angina Qualified Code(s): I25.10 - Atherosclerotic heart disease of hughes coronary artery without angina pectoris (4) Essential hypertension: (5) Elevated brain natriuretic peptide (BNP) level: Plan Admission findings: Sinus tachycardia, respiratory distress with acute hypoxia with chronic hypoxic respiratory failure, elevated blood pressure on admission, acute hypoxia with O2 sat of 91% on 3 L normal white blood cell count but with left shift consistent with a bacterial process, hyperkalemia, severe elevation in glucose, elevated BNP all consistent with multifocal pneumonia causing acute exacerbation of COPD and resulting in sepsis (tachycardia, respiratory distress, known infectious source of lungs) Multifocal pneumonia resulting in sepsis with acute exacerbation of chronic hypoxic respiratory failure and acute hypoxia-see pulmonology notes Acute combined congestive heart failure secondary to the sepsis as outlined above-excellent diuresis, net of 10.8 L diuresed, edema much improved Bilateral pleural effusions-diuresis,-repeat chest x-ray somewhat improved Anemia likely combination of iron deficiency as well as renal-stable Uncontrolled diabetes mellitus-improved at discharge Chronic kidney disease stage III-up somewhat from diuresis as expected Hyperkalemia-resolved Coronary artery disease secondary to hypercholesterolemia-consult to cardiology maintain current medications Hypothyroidism-check levels Hypertension-stable at discharge GERD-use home medications Diabetic peripheral neuropathy as a complication of poorly controlled diabetes mellitus-continue with home medications Admissions status: Patient now with acute exacerbation of asthma secondary multifocal pneumonia resulting in sepsis and acute combined congestive heart failure with acute hypoxia on top of chronic hypoxic respiratory failure, medically necessary treatment will span 2 midnights. Inpatient status DS: Summary Hospital Course Hospital Course: Patient admitted with increasing cough and shortness of breath, found to have acute combined congestive heart failure secondary to multi focal pneumonia resu lting in sepsis, with acute hypoxic respiratory failure, patient diuresed well over the course the hospitalization receiving Bumex drip on 2 occasions, she diuresed almost 11 L net. Patient is back and back on her home oral regiment and still having good diuresis, Entresto started and tolerating well, potassium normal. Blood pressure improved with amlodipine. Pneumonia also improving, white blood cell count stable at the time of discharge, productive cough improving and lung exam is clearing, see pulmonology notes, recommendation for outpatient IV antibiotics the patient's had multiple hospitalizations, she was restarted on her home diuretics with still excellent diuresis yesterday, sugar was difficult to maintain initially with severe hyperglycemia but that is improving at the time of discharge as well. Medications see list. See pulmonology and PCP at discharge within the next week. Time Spent with Patient Time attestation: Total time spent providing and/or coordinating discharge services: Exam Constitutional Vital Signs, click to edit/add: Last Vital Signs Temp 97.8 F 11/12/24 03:12 Pulse 74 11/12/24 05:59 Resp 18 11/12/24 05:19 BP 111/69 11/12/24 03:12 Pulse Ox 95 11/12/24 05:19 O2 Del Method Nasal Cannula 11/12/24 05:19 O2 Flow Rate 1 11/12/24 05:19 Documenting provider has reviewed patient's vital signs: yes Common normals: no apparent distress (Mild respiratory distress with conversational dyspnea) Chest Common normals: inspection of chest normal Respiratory Common normals: normal respiratory effort (Mild conversational dyspnea with respiratory distress); not clear to ascultation bilaterally Auscultation: rhonchi (Much improved); no rales (Resolved) and no wheezes (None noted but just with aerosol treatment) Cardio Common normals: regular rate, regular rhythm and no murmurs GI Common normals: soft to palpation and non-tender; negative for Normal to inspection, nondistended, normoactive bowel sounds present (Morbidly obese) Extremity Common normals: abnormal to inspection (1-2+ edema bilateral lower extremities, improved) and clubbing, cyanosis or edema DS: Data Data Completed and Pending Labs on day of discharge: Labs from last 24 hours 11/12/24 11/11/24 11/11/24 05:00 22:00 17:20 WBC 4.9 RBC 2.99 L Hgb 9.1 L Hct 28.4 L MCV 95.0 MCH 30.4 MCHC 32.0 RDW 14.4 Plt Count 165 MPV 12.3 Neut % (Auto) 54.2 Lymph % (Auto) 30.2 [place] % (Auto) 7.0 Eos % (Auto) 7.8 H Baso % (Auto) 0.2 Neut # (Auto) 2.6 Lymph # (Auto) 1.5 [place] # (Auto) 0.3 Eos # (Auto) 0.4 Baso # (Auto) 0.0 Abs Immat Gran (auto) 0.03 Imm/Tot Granulo (auto) 0.6 H Sodium 141 Potassium 4.2 Chloride 103 Carbon Dioxide 30.4 Anion Gap 11.8 BUN 57.0 H Creatinine 1.83 H Est GFR ( Amer) 35 L Est GFR (Non-Af Amer) 29 L BUN/Creatinine Ratio 31.1 Glucose 170 H Calcium 8.5 Total Bilirubin 0.3 AST 13 L ALT 16 Alkaline Phosphatase 53 NT-Pro-B Natriuret Pep 532.0 Total Protein 5.7 L Albumin 2.3 L Globulin 3.4 Albumin/Globulin Ratio 0.7 Vancomycin Trough POC Glucose 212 H 177 H 11/11/24 11/11/24 14:47 08:00 WBC RBC Hgb Hct MCV MCH MCHC RDW Plt Count MPV Neut % (Auto) Lymph % (Auto) [place] % (Auto) Eos % (Auto) Baso % (Auto) Neut # (Auto) Lymph # (Auto) [place] # (Auto) Eos # (Auto) Baso # (Auto) Abs Immat Gran (auto) Imm/Tot Granulo (auto) Sodium Potassium Chloride Carbon Dioxide Anion Gap BUN Creatinine Est GFR ( Amer) Est GFR (Non-Af Amer) BUN/Creatinine Ratio Glucose Calcium Total Bilirubin AST ALT Alkaline Phosphatase NT-Pro-B Natriuret Pep Total Protein Albumin Globulin Albumin/Globulin Ratio Vancomycin Trough 31.9 H* POC Glucose 298 H Preliminary micro results at discharge 11/08/24 14:34 Aerobic Susc Result 2 - Preliminary Blood 11/08/24 14:34 Blood Culture Result 2 - Preliminary Blood 11/08/24 13:55 Blood Culture Result 1 - Preliminary Blood NO GROWTH AT 36-48 HOURS. FINAL TO FOLLOW. 11/09/24 08:40 Urine Culture - Preliminary Urine,Clean Catch Pending - Specimen sent to [facility] Discharge Plan Discharge Disposition: Home Health Service Discharge Medications: New nystatin 100,000 unit/mL Suspension 500,000 unit PO QID 10 Days Qty: 200 0RF Invokana 100 mg Tablet 100 mg PO QD Qty: 30 11RF vancomycin 2 gram recon soln 2 g IV Q24H 10 Days aztreonam 1 gram recon soln 1 g IV Q8H Qty: 30 0RF aztreonam 1 gram recon soln 1 g IM Q8H Qty: 30 0RF vancomycin 2 gram recon soln 2 g IV Q24H 10 Days vancomycin 2 gram recon soln 2 g IV Q24H aztreonam 1 gram recon soln 1 g IV Q8H Qty: 30 0RF vancomycin 2 gram recon soln 2 g IV Q24H amlodipine 5 mg Tablet 5 mg PO QD Qty: 30 11RF Entresto 49-51 mg tablet 1 tab PO BID Qty: 60 11RF Continued clopidogrel 75 mg tablet 75 mg PO DAILY pregabalin [Lyrica] 100 mg capsule 100 mg PO TID fenofibrate 160 mg tablet 160 mg PO DAILY fluticasone propionate [Flonase Allergy Relief] 50 mcg/actuation spray,suspension 1 spray intranasal DAILY PRN (Reason: nasal congestion) Rx Instructions: administer into each nostril Humulin R U-500 (Conc) Insulin 500 unit/mL solution 150 unit subcut QPM levothyroxine 175 mcg capsule 175 mcg PO .ACB pantoprazole [Protonix] 40 mg tablet,delayed release (DR/EC) 40 mg PO BID Trulicity 4.5 mg/0.5 mL pen injector 4.5 mg subcut QWEEK Rx Instructions: friday nystatin 100,000 unit/gram cream 1 applic topical DAILY PRN (Reason: rash) Repatha SureClick 140 mg/mL pen injector 140 mg SUBCUT .Q2WKS metoprolol tartrate 100 mg tablet 100 mg PO BID (DME) Omnipod Dash Pods (Gen 4) Cartridge SUBCUT furosemide 40 mg tablet 40 mg PO BID Discontinued lisinopril 10 mg tablet 10 mg PO DAILY Print Language: Amharic Patient Instructions: How to Care for Your PICC (Peripherally Inserted Central Catheter) (DC) Manager Cost/Information Technology Manager Instructions: Discharge with [facility], plan is for start of care on 11/12/24 for IV antibiotics. Phone number is [phone] [facility] will deliver medications this evening for start of care 11/12/24. Phone number is [phone] Forms: Portal Instructions Follow Up Appointments: . November 16 @ 11am with [place] [facility] at [facility] [phone] . November 18 @ 1:30pm with Ann Fournier NP [phone] . November 23 @ 3:20pm with Dr. Viveros (Pulmonology) at [facility] [phone]
[2024-11-12 07:55] LABS: Glucometer 223 mg/dL (74-106)
[2024-11-12 08:04] LABS: Glucometer 178 mg/dL (74-106)
[2024-11-12] MEDS: INSULIN ASPART 300 UNIT/3 ML PEN SUBQ ×2 (08:32→11:39)
[2024-11-12] MEDS: GUAIFENESIN 600 MG TAB.ER.12H 1200 MG PO (08:32)
[2024-11-12] MEDS: AMLODIPINE BESYLATE 5 MG TABLET 10 MG PO (08:32)
[2024-11-12] MEDS: CLOPIDOGREL BISULFATE 75 MG TABLET PO (08:32)
[2024-11-12] MEDS: FENOFIBRATE 54 MG TABLET 162 MG PO (08:32)
[2024-11-12] MEDS: CANAGLIFLOZIN 100 MG TABLET PO (08:33)
[2024-11-12] MEDS: FUROSEMIDE 40 MG TABLET PO (08:33)
[2024-11-12] MEDS: PANTOPRAZOLE SODIUM 40 MG TABLET.DR PO (08:33)
[2024-11-12] MEDS: METOPROLOL TARTRATE 100 MG TABLET PO (08:33)
[2024-11-12] MEDS: POLYETHYLENE GLYCOL 3350 17 GM POWDER PACKET PO (08:33)
[2024-11-12] MEDS: SACUBITRIL/VALSARTAN 24 MG-26 MG TABLET 1 TAB PO (08:33)
[2024-11-12] MEDS: BUDESONIDE 0.5 MG/2 ML AMPULE NEB IH (10:23)
[2024-11-12 10:26] LABS: Vancomycin Random 23.4 ug/mL
--- NOTE | 2024-11-12 10:30 | RESP.RT ---
placed on room air
--- NOTE | 2024-11-12 11:23 | PT.DAILY ---
Physical Therapy Daily Note PT Daily Note/Assess Start: 11/11/24 11:32 Freq: Status: Active Protocol: Document 11/12/24 11:19 MACI (Rec: 11/12/24 11:23 MACI [id number]) Physical Therapy Daily Note/Assessment Time In/Time Out Time In 11:03 Time Out 11:15 Pain In Pain N/A Pain Out Pain N/A Subjective Subjective Pt sitting in BS chair upon arrival. Just finished OT session. Agrees to PT this morning. Therapeutic Exercise Time Therapeutic Exercise 5 Minutes (minutes) Therapeutic Exercise 0 Units Therapeutic Exercise Treatment Therapeutic Exercise Seated bilat LE strengthening ex complete in BS chair ( Treatment by memory, minimal cues needed) 10x ea. Therapeutic Activity Time Therapeutic Activity 6 Minutes (minutes) Therapeutic Activity 1 Units Therapeutic Activity Treatment Chair Transfer Independent Ability Therapeutic Activity Sit>stand IND to LBQC. Pt amb 150' with LBQC with SUP Comments on room air. Minimal fatigue upon completion. Spo2 89% on room air when returned to room. Total Physical Therapy Time Total Therapy 11 Minutes Total Physical 1 Therapy Units Summary Daily Note Summary Minimal fatigue with amb today but did see OT prior to our session. Improved gait distance by 20' from yesterday.
[2024-11-12] MEDS: AZTREONAM 1,000 MG in 0.9 % SODIUM CHLORIDE 50 ML 100 MG IV (11:40)
[2024-11-12 11:42] LABS: Glucometer 318 mg/dL (74-106)
--- NOTE | 2024-11-12 12:58 | SWNOTE1 ---
See case management note. Vanco trough complete. DERRICK faxed over lab work and updated script to [facility]. DERRICK spoke to pharmacist at [facility] and she will review and let SW know if all is good. DERRICK faxed updated script, labs, and CRF to [facility].
--- NOTE | 2024-11-12 13:47 | SWNOTE1 ---
SW updated patient on discharge today and start of care tomorrow with HH. Pt does have a ride.
--- NOTE | 2024-11-12 14:45 | SWNOTE1 ---
SW received call from [facility] and they will send meds out for delivery around 5:00. SW let nurse know and pt know as well. Pt is good to discharge today.
[2024-11-12] MEDS: VANCOMYCIN HCL 1,500 MG in 0.9 % SODIUM CHLORIDE 500 ML 250 MG IV (14:53)
[2024-11-12 16:54] LABS: Glucometer 89 mg/dL (74-106)
--- NOTE | 2024-11-15 14:38 | CM.DCFOLLOWU ---
Person spoke with: Amadou How are you feeling? Better still tired How is your pain? No pain Did you understand your discharge instructions? Yes Do you have any questions about your discharge instructions? No Were you given any prescriptions at discharge? Yes Were you able to get your prescriptions filled? Yes Do you understand how to take your medications as ordered? Yes Do you have any questions about your follow up appointment and do you plan to keep your follow up appointment? They are all scheduled and I plan on going to appointments Is there anything else that you would like to discuss? No Questions/Comments/Concerns/Other:
== END 2024-11-12 17:30 | disposition home health service (06) | DRG 871 ==
LOC: ER 16:01 → MS 18:22
PROVIDERS: Registered Nurse; Admitting Provider Family Medicine; Emergency Provider Emergency Medicine; PCP Nurse Practitioner Family; Visit Provider Family Medicine
DX: A41.9 Sepsis, unspecified organism (principal); I50.41 Acute combined systolic (congestive) and diastolic (congestive) heart failure; J18.9 Pneumonia, unspecified organism; J96.21 Acute and chronic respiratory failure with hypoxia; J44.0 Chronic obstructive pulmonary disease with (acute) lower respiratory infection; J44.1 Chronic obstructive pulmonary disease with (acute) exacerbation; I13.0 Hypertensive heart and chronic kidney disease with heart failure and stage 1 through stage 4 chronic kidney disease, or unspecified chronic kidney disease; J45.51 Severe persistent asthma with (acute) exacerbation; E87.20 Acidosis, unspecified; B37.0 Candidal stomatitis; Z68.42 Body mass index [BMI] 45.0-49.9, adult; E87.5 Hyperkalemia; E13.65 Other specified diabetes mellitus with hyperglycemia; Z96.41 Presence of insulin pump (external) (internal); Z79.85 Long-term (current) use of injectable non-insulin antidiabetic drugs; Z79.4 Long term (current) use of insulin; R65.20 Severe sepsis without septic shock; E13.22 Other specified diabetes mellitus with diabetic chronic kidney disease; I25.2 Old myocardial infarction; D50.9 Iron deficiency anemia, unspecified; I25.10 Atherosclerotic heart disease of native coronary artery without angina pectoris; E78.00 Pure hypercholesterolemia, unspecified; E03.9 Hypothyroidism, unspecified; K21.9 Gastro-esophageal reflux disease without esophagitis; E13.42 Other specified diabetes mellitus with diabetic polyneuropathy; N18.32 Chronic kidney disease, stage 3b; Z85.43 Personal history of malignant neoplasm of ovary; Z87.01 Personal history of pneumonia (recurrent); T36.95XA Adverse effect of unspecified systemic antibiotic, initial encounter; Z90.710 Acquired absence of both cervix and uterus; Z90.49 Acquired absence of other specified parts of digestive tract; Z96.659 Presence of unspecified artificial knee joint; D64.9 Anemia, unspecified; G47.33 Obstructive sleep apnea (adult) (pediatric); Z91.199 Patient's noncompliance with other medical treatment and regimen due to unspecified reason
CPT/HCPCS: 36415; 36569; 36592; 51702; 71045; 71046; 71275; 80048; 80053; 80202; 81001; 82800; 82947; 82948; 83605; 83735; 83880; 84436; 84443; 84484; 85025; 85610; 87040; 87070; 87077; 87086; 87150; 87186; 87205; 87420; 87804; 87811; 93005; 94640; 94667; 94668; 94761; 96365; 96366; 96375; 97161; 97165; 97530; 97535; 99285; C1887; J0457; J1817; J2919; J3370; Q9966

== ENCOUNTER 2025-01-04 14:02 | Outpatient (OUT) | payer MEDICARE, MEDICAID, SELFPAY ==
--- OUTSIDE RECORDS SUMMARY | 2023-08-18 06:30 | XMS_ITS ---
Author Organization [facility] Address [address] [place] [address] Care Team Providers Care Rn Or Lpn Name Role Phone Ann Rocha Primary Care Provider Vladimir Hurt Unavailable [phone] REASON FOR VISIT RC LEFT KNEE ARTHRITIS Medications Medication SIG (Take, Route, Frequency, Duration) Notes Start Date End Date Status Acidophilus - 1 cap(s) orally once a day Active Cinnamon 500 mg 2 cap(s) orally 2 ti mes a day Active biotin 07946 mcg 1 cap(s) orally once a day [...] Active Encounters Encounter Location Date Provider Diagnosis [facility] Office [address] [place] [address] [address] 08/18/2023 Vladimir Riggins Primary osteoarthrit is of left knee M17.12 Assessments Encounter Date Diagnosis (ICD Code) Assessment Notes Treatment Notes Treatment Clinical Notes Section Notes 08/18/2023 Primary osteoarthritis of left knee (ICD-10 - M17.12) Plan Of Treatment Pending Test Test Name Order Date RSS: KNEE LEFT LUCITA AP,LUCITA PA ,LEFT LAT,B [place] - [id number] 08/18/2023 Progress Notes * MARY JANE SCHAEFFER DDOB:[birth year] (54 yo F)Acc No.[id number]:08/18/2023 Patient: Carmelita MARY JANE VEGAS D Provider: Isabell Riggins MD :1970 A ge:53 Y S ex:Female Date:08/18/2023 Address:[address] [place] [address] [address] Pcp:Ann Rocha Subjective: * Chief Complaints: [...] orally once a day , Taking biotin 26414 mcg capsule 1 cap(s) orally once a [...] 7 3564 X-ray Knee, complete 4 views, 14186 X-ray Knee, 3 view Forms: * Images: * Electronic signature of Vladimir Riggins MD on 01/04/2025 at 02:05 PM EDT Sign off status: Pending * Provider: Isabell Riggins MD Date: 0 08/18/2023 Generated for Mark davis/Otilia/Adrianitting on: 0 01/04/2025 02:05 PM EDT
--- OUTSIDE RECORDS SUMMARY | 2024-11-25 07:10 | XMS_ITS ---
Author Organization [facility] [place] Address [address] [place] [address] Care Team Providers Care Medical Unit Secretary Name Role Phone Ann Rocha Primary Care Provider REASON FOR VISIT PICC line Encounters Encounter Location Date Provider Diagnosis [facility] [address] [place] [address] 11/25/2024 Ann Rocha Plan Of Treatment No Information Progress Notes * Amadou SUAREZ DDOB:[birth year] (54 yo F)Acc No.[id number]:11/25/2024 Patient: Carmelita Amadou VEGAS :1970 A ge:54 Y S ex:Female Address:[address], [place] [address] * true * Date: Generated for Printi ng/Faitag/eTransmitting on: 0 01/04/2025 02:04 PM EDT
--- OUTSIDE RECORDS SUMMARY | 2024-12-09 13:23 | XMS_ITS ---
Author Organization [facility] in [place] Address [address] [place] [address] Care Team Providers Care Waxer Floor Name Role Phone Ann Rocha Primary Care Provider Encounters Encounter Location Date Provider Diagnosis [facility] [address] [place] [address] 12/09/2024 Ann Rocha Plan Of Treatment No Information Progress Notes * Amadou SUAREZ DDOB:[birth year] (54 yo F)Acc No.[id number]:12/09/2024 Patient: Carmelita FEDEJONATHANAmadou SCHULTZ :1970 A ge:54 Y S ex:Female Address:[facility] [address], [place] [address] * true * Date: Generated for Printi ng/Faxing/eTransmitting on: 0 01/04/2025 02:05 PM EDT
--- NOTE | 2025-01-04 14:00 | CA_ITS ---
Patient Name: MARY JANE ON LICENSE OF [facility] MR#: [id number] : 1970 Exam Date: 01/04/2025 Ordering Doctor: DR CONCEPCIÓN MADRIGAL M.D. ECHOCARDIOGRAM REPORT PROCEDURE: CA ECHO LIMITED INDICATIONS: Pericardial effusion, diabetes COMPARISON: None. DESCRIPTION: Limited ECHOCARDIOGRAM Real-time transthoracic echocardiography with 2D and M-mode performed. QUALITY: Technically difficult due to patient's condition. LEFT VENTRICLE: Normal chamber size. Normal left ventricular wall thickness. Systolic function appears normal. Estimated LVEF is 55%. LV EF: Normal left ventricular ejection fraction, (55%). DIASTOLIC: ATRIAL SEPTUM: LEFT ATRIUM: Normal chamber size. RIGHT ATRIUM: Normal chamber size. RIGHT VENTRICLE: Normal chamber size. Systolic function appears normal. TRICUSPID VALVE: Normal mobility and thickness. MITRAL VALVE: Normal mobility and thickness. There is no mitral annular calcification. AORTIC VALVE: Normal trileaflet appearance. No visible sclerosis. Normal leaflet mobility. AORTIC ROOT: Normal diameter and appearance. Ascending aorta is normal in size. PULMONIC VALVE: Not well visualized. PERICARDIUM: Trivial pericardial effusion. IVC: PLEURA: CONCLUSION: 1. The left ventricle is normal in size and appears to have normal systolic function. Estimated LVEF is 55%. 2. Normal right ventricular size and systolic function. 3. Reveal mostly anterior pericardial effusion. 4. Technically difficult study with poor sound transmission. 5. Limited study performed with no Doppler interrogation as requested. Adult Echocardiography Procedure Report Left Ventricle LVEDD (3.7 - 5.6 cm): 3.88 cm LVESD (2.2 - 4.0 cm): 2.81 cm LVIVS thickness (0.6 - 1.2 cm): 0.96 cm LVPW thickness (0.5 - 1.0 cm): 0.98 cm LVOT Diameter 1.90 cm Left Atrium Left Atrium Systolic Dimension: 3.57 cm Mitral Valve Right Ventricle Aorta AO Root Diam: 2.42 cm Ascending Ao Diam: 2.63 cm Aortic Valve Tricuspid Valve Pulmonic Valve Right Atrium Right Atrium Systolic Pressure: 37.39 ml, 37.39 ml Dictated by: Munir Franco M.D. on 01/04/2025 at 18:27 Approved by: Munir Franco M.D. on 01/04/2025 at 18:32
--- OUTSIDE RECORDS SUMMARY | 2025-01-04 14:05 | XMS_ITS | Clinical Summary ---
Author Organization [facility] Address [address] [id number] Care Team Providers Care Numerical Control Tool Programmer Name Role Phone Phys, Unable To Identify Primary Care Provider U navailable Social History Tobacco Use Types Packs/Day Years Used Date Smoking Tobacco: Never Assessed Comments Unknown Sex and Gender Information Value Date Recorded Sex Assigned at Not on file Legal Sex Female 10:50 AM EDT Gender Identity Not on file Sexual Orientation Not on file Plan of Treatment Health Maintenance Due Date Last Done Comments Cologuard (average risk only) 1970 Colonoscopy 1968 Colorectal Cancer Screening 1968 FIT (average risk only) 1968 Hepatitis C Screening 1968 Alternating Mammogram/MRI 1980 DTaP,Tdap,and Td Vaccines (1 - Tdap) 1987 Hepatitis B Vaccine ages 19 years and older (1 of 3 - 19+ 3-dose series) 1987 Breast Cancer Screening 1988 Mammogram 1988 Cervical Cancer Screening: Cytology 1989 Pneumococcal Vaccines 50year s + (1 of 1 - PCV) 2018 Zoster Recombinant Vaccines (1 of 2) 2018 COVID-19 Vaccine ( - 2023-2 5 season) 2024 Influenza Vaccine (#1) 2025 Respiratory Syncytial Virus (RSV) or ages 60 years and older (1 - 1-dose 75+ series) 2043 Respiratory Syncytial Virus (RSV) ages 0 thru 19 months Aged Out No longer eligible based on patient's age to complete this topic Insurance BCBS MEDICARE OUT OF STATE [place] Care Teams Numerical Control Tool Programmer Relationship Specialty Start Date End Date Phys, Unable To Identify PCP - General 12/15/20
--- OUTSIDE RECORDS SUMMARY | 2025-01-04 14:07 | XMS_ITS | Patient Health Record ---
Author Organization [facility] in [place] Address [address] [place] [address] Care Team Providers Care Investment Fund Manager Name Role Phone Ann Fournier Primary Care Provider [phone] Cayden Viveros Unavailable [phone] Levy Chatterjee Unavailable [phone] Allergies Allergen (clinical drug ingredient) Drug/Non Drug [...] Pollen Pollen Unknown Allergy Active Substance with 5-wgsxckg-5-methylglut aryl-coenzyme A reductase inhibitor mechanism of action (substance) Statins Unknown Drug Allergy Active Substance with sulfonamide structure and antibacterial mechanism of action (substance) Sulfa Antibiotics Unknown Drug Allergy Active doxycycline Doxycycline hives Drug Allergy Act ellis Penicillin anaphylaxis Drug Allergy Acti ve Results Component Value Reference Range Notes Blood Culture 1 Reviewed date:01/19/2024 12:44:09 PM Interpretation: Performing Lab: Notes/Report: [facility] , Blood Culture 1 See Below For Report Blood Culture 1 NG5D NO GROWTH AT 5 DAYS. Performing Lab: see note ML - [facility] LB Blood Culture 2 Reviewed date:01/19/2024 12:44:09 PM Interpretation: Performing Lab: Notes/Report: [facility] , Blood Culture 2 See Below For Report Blood Culture 2 NG5D NO GROWTH AT 5 DAYS. Performing Lab: see note ML - [facility] LB CBC AUTO DIFF Reviewed date:01/13/2024 09:13:07 AM Interpretation: Performing Lab: Notes/Report: [facility] , White Blood Count 5.7 4.0-11.0 [...] Performing Lab: see note ML - [facility] LB CRP Reviewed date:01/13/2024 09:12:56 AM Interpretation: Performing Lab: Notes/Report: [facility] , C Reactive Protein 0.56 <=0.50 mg/dL Performing Lab: see note ML - [facility] LB PROF 14(COMP METB) Reviewed date:01/13/2024 09:13:08 AM Interpretation: Performing Lab: Notes/Report: [facility] , Sodium 138 136-145 mmol/L Potassium [...] 0.9 Performing Lab: see note ML - [facility] LB Erythrocyte Sedimentation Ra te Reviewed date:01/13/2024 09:13:08 AM Interpretation: Performing Lab: Notes/Report: [place] , Erythrocyte Sedimentation Rate 109 <=30 mm/hr Performing Lab: see note ML - [facility] LB CBC AUTO DIFF Reviewed date:09/23/2024 12:02:34 PM Interpretation: Performing Lab: Notes/Report: [facility] , White Blood Count 5.9 4.0-11.0 [...] 0.00-0.03 10 3/uL Performing Lab: see note - [facility] GLYCOHEMOGLOBIN A1C Reviewed date:09/23/2024 12:02:34 PM Interpretation: Performing Lab: Notes/Report: [place] , Glycohemoglobin A1C 9.4 4.5-6.2 % ADA RECOMMENDED LIMIT 4.0 - 6.0 ADA THERAPEUTIC TARGET < 7.0 ACTION SUGGESTED > 7.0 Estimated Average Glucose 223 Performing Lab: see note [facility] INSULIN Reviewed date:09/24/2024 01:08:40 PM Interpretation: Performing Lab: Notes/Report: [facility] , Insulin 98.3 2.6-24.9 uIU/mL Performed at: - [facility] [address] [id number] Loan Operations Manager: Godwin Menjivar PhD, Phone: [phone] Performing Lab: see note - [facility] LB IRON Reviewed date:09/23/2024 12:02:34 PM Interpretation: Performing Lab: Notes/Report: [facility] , Iron 123.0 50.0-170.0 ug/dL Performing Lab: see note [facility] LB LIPID PROFILE Reviewed date:09/23/2024 12:02:34 PM Interpretation: Performing Lab: Notes/Report: [facility] , Triglycerides 236 <=150 mg/dL Cholesterol [...] RISK Performing Lab: see note ML - [facility] LB LIVER PROFILE Reviewed date:09/23/2024 12:02:34 PM Interpretation: Performing Lab: Notes/Report: [facility] , Bilirubin Total 0.4 0.2-1.0 mg/dL Bilirubin Direct 0.1 0.0-0.2 mg/dL Aspartate Amino Transferase 29 15-37 U/L Alanine Aminotransferase 35 14-59 U/L Alkaline Phosphatase 72 46-116 U/L Total Protein 7.3 6.4-8.2 g/dL Albumin Level 3.6 3.4-5.0 g/dL Globulin 3.7 Albumin Globulin Ratio 1.0 Performing Lab: see note ML - [facility] LB MAGNESIUM Reviewed date:09/23/2024 12:02:34 PM Interpretation: Performing Lab: Notes/Report: [facility] , Magnesium 2.0 1.8-2.4 mg/dL Performing Lab: see note ML - [facility] LB MICROALB CREAT RATIO RANDOM Reviewed date:09/23/2024 12:02:34 PM Interpretation: Performing Lab: Notes/Report: [facility] , Microalbumin Urine Random 15.1 <=30.0 mg/dL Creatinine Urine Random 137.35 20.00-30 0.00 mg/dL Microalbum Creatinine Ratio Ur 109.9 0.0-29.9 mg/g NO MICROALBUMINURIA 0-29 MG/G CLINICAL MICROALBUMINURIA 30-300 MG/G MACROALBUMINURIA >300 MG/G Performing Lab: see note ML - [facility] LB RENAL FUNCTION PANEL Reviewed date:09/23/2024 12:02:34 PM Interpretation: Performing Lab: Notes/Report: [facility] , Sodium 143 136-145 mmol/L Potassium [...] g/dL Performing Lab: see note ML - [facility] UA RANDOM W or MICROSCOPIC Reviewed date:09/23/2024 12:02:34 PM Interpretation: Performing Lab: Notes/Report: [facility] , Color Urine LT. YELLOW YELLOW Clarity Urine CLEAR CLEAR Specific [place] Urine 1.025 1.005-1.025 pH Urine 6.0 5.0-9.0 [...] NO Performing Lab: see note ML - [facility] LB URIC ACID SERUM Reviewed date:09/23/2024 12:02:34 PM Interpretation: Performing Lab: Notes/Report: [facility] , Uric Acid 9.7 2.6-6.0 mg/dL Performing Lab: see note ML - [facility] LB URINE T PROTEIN CREAT RATIO Reviewed date:09/23/2024 12:02:34 PM Interpretation: Performing Lab: Notes/Report: [facility] , Total Protein Urine Random 39.1 <=11.9 mg/dL Creatinine Urine Random 138.55 20.00-30 0.00 mg/dL Protein Creatinine Ratio Urine 0.28 Performing Lab: see note - [facility] VITAMIN D 25 [place] Reviewed date:09/23/2024 12:02:34 PM Interpretation: Performing Lab: Notes/Report: [facility] , Vitamin D 70.9 <20 ng/mL Vit D deficient 20-<30 ng/mL Vit D insufficient 30-100 ng/mL Vit D sufficient >100 ng/mL Potential Toxicity Performing Lab: see note - [facility] CBC no Diff (Hemogram) Reviewed date:09/23/2024 12:02:34 PM Interpretation: Performing Lab: Notes/Report: [facility] , White Blood Count 5.9 4.0-11.0 [...] fL Performing Lab: see note ML - [facility] LB PTT Reviewed date:10/07/2024 11:17:12 AM Interpretation: Performing Lab: Notes/Report: [facility] , Partial Thromboplastin Time 34.7 22.3-36.2 sec Performing Lab: see note - [facility] LB Blood Culture 1 Reviewed date:10/11/2024 04:36:51 PM Interpretation: Performing Lab: Notes/Report: [place] [facility] , Blood Culture 1 See Below For Report Blood Culture 1 NG5D NO GROWTH AT 5 DAYS.^NO GROWTH AT 5 DAYS. Performing Lab: see note ML - [facility] LB Blood Culture 2 Reviewed date:10/11/2024 04:36:51 PM Interpretation: Performing Lab: Notes/Report: R HAND - PEDS [facility] , Blood Culture 2 See Below For Report Blood Culture 2 NG5D NO GROWTH AT 5 DAYS.^NO GROWTH AT 5 DAYS. Performing Lab: see note - [facility] LB Prothrombin Time INR Reviewed date:10/07/2024 11:17:12 AM Interpretation: Performing Lab: Notes/Report: [facility] , Prothrombin Time 11.7 9.0-11.6 sec INR 1.12 DESIRED INR: 2.0-3.0 CONDITIONS NOT LISTED BELOW 2.5-3.5 FOR PROSTHETIC HEART VALVE REPLACEMENT 2.5-3.5 RECURRENT THROMBOSIS Performing Lab: see note - [facility] LB Manual Differential Reviewed date:10/07/2024 11:17:12 AM Interpretation: Performing Lab: Notes/Report: [facility] , Segmented Neutrophils % Manual 95.0 [...] 3/uL Anisocytosis 2+ Performing Lab: see note - [facility] LB SARS-CoV-2 Ag* Reviewed date:10/07/2024 11:17:12 AM Interpretation: Performing Lab: Notes/Report: [facility] , SARS-CoV-2 Ag NEGATIVE NEGATIVE This [...] Performing Lab: see note ML - [facility] LB ECG 12 lead Reviewed date:10/07/2024 11:17:12 AM Interpretation: Performing Lab: Notes/Report: Source Facility: [facility] [place] [address] [place] [address] Electrocardiograph Report Signed Patient: MARY JANE SCHAEFFER MR#: [id number] : 1970 Acct:[id number] Age/Sex: 54 / F ADM Date: 10/06/24 Loc: ER Attending Dr: Ordering Physician: Maia Reyes M.D. Date of Service: 10/06/24 Procedure(s): ECG 12 lead Accession Number(s): [id number] cc: [facility] Test Date: 2024-10-06 Pat Name: MARY JANE SCHAEFFER Department: Room: - Gender: Female Radio Electronics Officer: : 1970 Requested By: ANN FOURNIER Order Number: [id number] Reading MD: NANDA KAUR M.D. Measurements Intervals [place] Rate: 98 P: 40 NH: 140 QRS: 104 QRSD: 80 T: 35 QT: 340 QTc: 395 Interpretive Statements 1100 Sinus rhythm 3113 Cannot rule out anterior myocardial infarction, probably old 7100 Abnormal right axis deviation 9150 abnormal ECG Compared to ECG 09/07/2021 12:09:35 Right-axis deviation now present Electronically Signed On 10-06-2024 18:14:34 EDT by NANDA KAUR M.D. Dictated By: NANDA KAUR Signed By: 10/06/24 7454 DD/ 1317 TD/TT: Superintendent Horticulture: [place] [address] Electrocardiograph Report Signed Patient: MARY JANE SCHAEFFER MR#: [id number] : 1970 Acct:[id number] Age/Sex: 54 / F ADM Date: 10/06/24 Loc: ER Attending Dr: Ordering Physician: Maia Reyes M.D. Date of Service: 10/06/24 Procedure(s): ECG 12 lead Accession Number(s): [id number] cc: [facility] Test Date: 2024-10-06 Pat Name: MARY JANE SANTOS Department: 95 Room: - Gender: Female Radio Electronics Officer: : 1970 Requested By: ANN FOURNIER Order Number: [id number] Reading MD: NANDA KAUR M.D. Measurements Intervals [place] Rate: 98 P: 40 NH: 140 QRS: 104 QRSD: 80 T: 35 QT: 340 QTc: 395 Interpretive Statements 1100 Sinus rhythm 3113 Cannot rule out anterior myocardial infarction, probably old 7100 Abnormal right axis deviation 9150 abnormal ECG Compared to ECG 09/07/2021 12:09:35 Right-axis deviation now present Electronically Kianna d On 10-06-2024 18:14:34 EDT by NANDA KAUR M.D. Dictated By: NANDA KAUR Signed By: 10/06/24 1814 DD/ 1317 TD/TT: Superintendent Horticulture: Troponin I High Sensitivity Reviewed date:10/07/2024 11:17:12 AM Interpretation: Performing Lab: Notes/Report: [facility] , Troponin I High Sensitivity 239.6 4.0-51.3 pg/mL RESULTS CALLED TO DR. REYES CUT-OFF POINTS HAVE BEEN ESTABLISHED BASED ON THE FOURTH UNIVERSAL DEFINITION OF MYOCARDIAL INFARCTION. THE UPPER REFERENCE LIMIT (URL) OF TROPONIN, DEFINED THE 99TH PERCENTILE OF cTnI DISTRIBUTION IN A REFERENCE POPULATION, HAS BEEN CONFIRMED THE DECISION THRESHOLD FOR SC DIAGNOSIS. 99TH PERCENTILE = 51.4 PG/ML NOTE: HIGH-SENSITIVITY TROPONIN ASSAY IS NOT INTENDED TO BE USED IN ISOLATION BUT SHOULD BE INTERPRETED IN CONJUNCTION WITH OTHER DIAGNOSTIC AND CLINICAL INFORMATION. Performing Lab: see note ML - [facility] LB LACTATE or LACTIC ACID Reviewed date:10/21/2024 07:55:32 PM Interpretation: Performing Lab: Notes/Report: [facility] , Lactate/Lactic Acid 1.4 0.4-2.0 mmol/L Performing Lab: see note ML - [facility] Troponin I High Sensitivity Reviewed date:10/21/2024 04:18:32 PM Interpretation: Performing Lab: Notes/Report: [facility] , Troponin I High Sensitivity 6.1 4.0-51.3 pg/mL CUT-OFF POINTS HAVE BEEN ESTABLISHED BASED ON THE FOURTH UNIVERSAL DEFINITION OF MYOCARDIAL INFARCTION. THE UPPER REFERENCE LIMIT (URL) OF TROPONIN, DEFINED THE 99TH PERCENTILE OF cTnI DISTRIBUTION IN A REFERENCE POPULATION, HAS BEEN CONFIRMED THE DECISION THRESHOLD FOR SC DIAGNOSIS. 99TH PERCENTILE = 51.4 PG/ML NOTE: HIGH-SENSITIVITY TROPONIN ASSAY IS NOT INTENDED TO BE USED IN ISOLATION BUT SHOULD BE INTERPRETED IN CONJUNCTION WITH OTHER DIAGNOSTIC AND CLINICAL INFORMATION. Performing Lab: see note ML - [facility] FREE T3 Reviewed date:10/21/2024 07:55:32 PM Interpretation: Performing Lab: Notes/Report: [facility] , Free T3 1.85 2.18-3.98 pg/mL Performing Lab: see note ML - [facility] LB INFLUENZA A AND B AG Reviewed date:10/21/2024 07:55:32 PM Interpretation: Performing Lab: Notes/Report: [facility] , Influenza Virus A Antigen Negative [...] test. Performing Lab: see note ML - [facility] LB LIVER PROFILE Reviewed date:10/21/2024 07:55:32 PM Interpretation: Performing Lab: Notes/Report: [facility] , Bilirubin Total 0.5 0.2-1.0 mg/dL Bilirubin Direct 0.2 0.0-0.2 mg/dL Aspartate Amino Transferase 20 15-37 U/L Alanine Aminotransferase 24 14-59 U/L Alkaline Phosphatase 50 46-116 U/L Total Protein 6.5 6.4-8.2 g/dL Albumin Level 2.9 3.4-5.0 g/dL Globulin 3.6 Albumin Globulin Ratio 0.8 Performing Lab: see note ML - [facility] LB MAGNESIUM Reviewed date:10/21/2024 07:55:32 PM Interpretation: Performing Lab: Notes/Report: [facility] , Magnesium 1.8 1.8-2.4 mg/dL Performing Lab: see note ML - [facility] LB RSV Reviewed date:10/21/2024 07:55:32 PM Interpretation: Performing Lab: Notes/Report: [facility] , Respiratory Syncytial Virus Not Detected NOT DETECTE Performing Lab: see note ML - [facility] LB T4 Reviewed date:10/21/2024 07:55:32 PM Interpretation: Performing Lab: Notes/Report: [facility] , T4 Thyroxine 9.70 4.80-13.90 ug/dL Performing Lab: see note ML - [facility] LB TSH Reviewed date:10/21/2024 07:55:32 PM Interpretation: Performing Lab: Notes/Report: [facility] , Thyroid Stimulating Hormone 4.601 0.358-3.740 uIU/mL Performing Lab: see note ML - [facility] LB Troponin I High Sensitivity Reviewed date:10/21/2024 07:55:32 PM Interpretation: Performing Lab: Notes/Report: [facility] , Troponin I High Sensitivity 6.9 4.0-51.3 pg/mL CUT-OFF POINTS HAVE BEEN ESTABLISHED BASED ON THE FOURTH UNIVERSAL DEFINITION OF MYOCARDIAL INFARCTION. THE UPPER REFERENCE LIMIT (URL) OF TROPONIN, DEFINED THE 99TH PERCENTILE OF cTnI DISTRIBUTION IN A REFERENCE POPULATION, HAS BEEN CONFIRMED THE DECISION THRESHOLD FOR SC DIAGNOSIS. 99TH PERCENTILE = 51.4 PG/ML NOTE: HIGH-SENSITIVITY TROPONIN ASSAY IS NOT INTENDED TO BE USED IN ISOLATION BUT SHOULD BE INTERPRETED IN CONJUNCTION WITH OTHER DIAGNOSTIC AND CLINICAL INFORMATION. Performing Lab: see note ML - [facility] LB SARS-CoV-2 Ag* Reviewed date:10/21/2024 07:55:32 PM Interpretation: Performing Lab: Notes/Report: [facility] , SARS-CoV-2 Ag NEGATIVE NEGATIVE This [...] Performing Lab: see note ML - [facility] Troponin I High Sensitivity Reviewed date:10/23/2024 11:42:38 AM Interpretation: Performing Lab: Notes/Report: [facility] , Troponin I High Sensitivity 8.3 4.0-51.3 pg/mL CUT-OFF POINTS HAVE BEEN ESTABLISHED BASED ON THE FOURTH UNIVERSAL DEFINITION OF MYOCARDIAL INFARCTION. THE UPPER REFERENCE LIMIT (URL) OF TROPONIN, DEFINED THE 99TH PERCENTILE OF cTnI DISTRIBUTION IN A REFERENCE POPULATION, HAS BEEN CONFIRMED THE DECISION THRESHOLD FOR SC DIAGNOSIS. 99TH PERCENTILE = 51.4 PG/ML NOTE: HIGH-SENSITIVITY TROPONIN ASSAY IS NOT INTENDED TO BE USED IN ISOLATION BUT SHOULD BE INTERPRETED IN CONJUNCTION WITH OTHER DIAGNOSTIC AND CLINICAL INFORMATION. Performing Lab: see note ML - [facility] LB PROF CHEM 8 (BAS METB) Reviewed date:10/23/2024 11:42:38 AM Interpretation: Performing Lab: Notes/Report: [facility] , Sodium 136 136-145 mmol/L Potassium 5.6 3.5-5.1 mmol/L Chloride 103 98-107 mmol/L Carbon Dioxide 22.2 21.0-32.0 mmol/L Anion Gap 16.4 Glucose 551 74-106 mg/dL RESULTS CALLED TO MAHAD HERRMANN RN Blood Urea Nitrogen 37.0 7.0-18.0 mg/dL Creatinine 1.69 0.55-1.02 mg/dL Estimated GFR ( Anneliese 38 >=60 mL/min/1.73m 2 Estimated GFR (Non- Michela 31 >=60 mL/min/1.73m 2 BUN Creatinine Ratio 21.9 Calcium 9.2 8.5-10.1 mg/dL Performing Lab: see note ML - [facility] LB UA RANDOM W or MICROSCOPIC Reviewed date:10/23/2024 11:42:38 AM Interpretation: Performing Lab: Notes/Report: [facility] , Color Urine LT. YELLOW YELLOW Clarity Urine CLEAR CLEAR Specific Marshall Urine 1.015 1.005-1.025 pH Urine 5.5 5.0-9.0 Protein Urine NEGATIVE NEG/TRACE mg/dL Glucose Urine UA >=1000 NEGATIVE mg/dL Bilirubin Urine NEGATIVE NEGATIVE Ketones Urine TRACE NEGATIVE mg/dL Blood Urine NEGATIVE NEGATIVE Nitrite Urine NEGATIVE NEGATIVE Urobilinogen Urine 0.2 0.2-1.0 EU/dL Leukocyte Esterase Urine NEGATIVE NEGATIVE WBC Urine NONE SEEN NONE SEEN #/HPF RBC Urine 0-2 0-2 #/HPF Bacteria Urine TRACE NONE SEEN #/HPF Mucus Urine NONE SEEN NONE SEEN Squamous Epithelial Cell Urine FEW NONE/RARE #/LPF Crystals Seen? None Seen None Seen #/HPF Cast Seen? NONE SEEN NONE SEEN #/LPF Performing Lab: see note ML - [facility] LB Urine Culture - [facility] Reviewed date:10/26/2024 01:01:53 PM Interpretation: Performing Lab: Notes/Report: [facility] , Urine Culture - [facility] See Below For Report Urine Culture - [facility] 50,000 colonies/ml mixed Urine Culture - [facility] bacterial skin contaminants Urine Culture - [facility] 50,000 colonies/ml mixed Urine Culture - [facility] 2 Days Urine Culture - [facility] 50,000 colonies/ml mixed Urine Culture - [facility] Urine Culture - [facility] 50,000 colonies/ml mixed Urine Culture - [facility] Testing performed a [facility] Urine Culture - [facility] 50,000 colonies/ml mixed Urine Culture - [facility] [address] [place] [address] Urine Culture - [facility] 50,000 colonies/ml mixed Performing Lab: see note ML - [facility] LB ECG 12 lead Reviewed date:10/23/2024 11:42:38 AM Interpretation: Performing Lab: Notes/Report: Source Facility: [facility]-[address] [place] [address] [place] [address] Electrocardiograph Report Signed Patient: MARY JANE SCHAEFFER MR#: [id number] : 1970 Acct:[id number] Age/Sex: 54 / F ADM Date: 10/21/24 Loc: [place] 229-[address]: Sea Chatterjee M.D. Ordering Physician: Sea Chatterjee M.D. Date of Service: 10/22/24 Procedure(s): ECG 12 lead Accession Number(s): [id number] cc: [place] Test Date: 2024-10-22 Pat [facility] Department: Room: [facility] Gender: Female Radio Electronics Officer: : 1970 Requested By: SEA CHATTERJEE Order Number: [id number] Reading MD: NANDA KAUR M.D. Measurements Intervals [place] Rate: 74 P: 67 NH: 150 QRS: 111 QRSD: 86 T: 52 QT: 418 QTc: 465 Interpretive Statements SINUS RHYTHM POSSIBLE RIGHT VENTRICULAR HYPERTROPHY [SOME/ALL OF: PROMINENT R IN V1, LATE TRANSITION, RAD, MIKE, SSS] Poor R-Wave progression Compared to ECG 10/21/2024 15:02:25 Poor R wave progression is now present Electronically Signed On 10-23-2024 8:56:42 EDT by NANDA KAUR M.D. Dictated By: NANDA KAUR Signed By: 10/23/24 0856 DD/ 0423 TD/TT: Superintendent Horticulture: [place] [address] Electrocardiograph Report Signed Patient: MARY JANE SCHAEFFER MR#: [id number] : 1970 Acct:[id number] Age/Sex: 54 / F ADM Date: 10/21/24 Loc: [place] 229-[address]: Fransisco Chatterjee M.D. Ordering Physician: Sea Chatterjee M.D. Date of Service: 10/22/24 Procedure(s): ECG 12 lead Accession Number(s): [id number] cc: [place] Test Date: 2024-10-22 Pat [facility] Department: 95 Room: [facility] Gender: Female Radio Electronics Officer: : 1970 Requested By: SEA CHATTERJEE Order Number: [id number] Ej MD: NANDA KAUR M.D. Measurements Intervals [place] Rate: 74 P: 67 NH: 150 QRS: 111 QRSD: 86 T: 52 QT: 418 QTc: 465 Interpretive Statements SINUS RHYTHM POSSIBLE RIGHT VENTRICULAR HYPERTROPHY [SOME/ALL OF: PROMINENT R IN V1, LATE TRANSITION, RAD, MIKE , SSS] Poor R-Wave progression Compared to ECG 10/21/2024 15:02:25 Poor R wave progress ion is now present Electronically Kianna d On 10-23-2024 8:56:42 EDT by NANDA KAUR M.D. Dictated By: NANDA KAUR Signed By: 10/23/24 0856 DD/ 0423 TD/TT: Superintendent Horticulture: MARTHA chandler Reviewed date:10/23/2024 11:42:38 AM Interpretation: Performing Lab: Notes/Report: Source Facility: [place] [address] Cardiology Report Signed Patient: MARY JANE SCHAEFFER MR#: [id number] : 1970 Acct:[id number] Age/Sex: 54 / F ADM Date: 10/21/24 Loc: [place] 229-[address]: Sea Chatterjee M.D. Ordering Physician: Sea Chatterjee M.D. Date of Service: 10/22/24 Procedure(s): CA echo limited Accession Number(s): [id number] cc: ANN FOURNIER ; Sea Chatterjee M.D. Patient Name: MARY JANE SCHAEFFER MR#: [id number] : 1970 Exam Date: 10/22/2024 Ordering Doctor: DR SEA CHATTERJEE . ECHOCARDIOGRAM REPORT PROCEDURE: CA ECHO LIMITED INDICATIONS: Dyspnea, elevated BNP, diabetes, hypertension, CAD COMPARISON: None. DESCRIPTION: Limited ECHOCARDIOGRAM Real-time transthoracic echocardiography with 2D and M-mode performed. QUALITY: Limited echocardiogram per physician order. Technically difficult due to patient's condition. LEFT VENTRICLE: Normal chamber size. Borderline left ventricular hypertrophy. LV EF: Global left ventricular systolic function is difficult to assess but appears preserved; visually estimated ejection fraction is 55%. Unable to assess regional wall motion abnormalities. Suggest contrast study for better delineation of endocardial borders. LEFT ATRIUM: Normal in size. RIGHT ATRIUM: Poorly seen. RIGHT VENTRICLE: Normal in size and systolic function. TRICUSPID VALVE: Normal mobility and thickness. MITRAL VALVE: Normal mobility and thickness. AORTIC VALVE: Normal trileaflet appearance. No visible sclerosis. Normal leaflet mobility. AORTIC ROOT: Normal diameter and appearance. Ascending aorta is normal in size. PULMONIC VALVE: Normal thickness and mobility. PERICARDIUM: Anterior free space; trivial effusion versus fat pad. CONCLUSION: 1. Global left ventricular systolic function is difficult to assess but appears preserved; visually estimated ejection fraction is 55% 2. The right ventricle appears normal in size and systolic function 3. Borderline left ventricular hypertrophy 4. The left atrium is normal in size 5. Anterior face may; trivial effusion versus fat pad A limited echocardiogram was performed Adult Echocardiography Procedure Report Left Ventricle LVEDD (3.7 - 5.6 cm): 4.68 cm LVESD (2.2 - 4.0 cm): 3.22 cm LVIVS thickness (0.6 - 1.2 cm): 1.05 cm LVPW thickness (0.5 - 1.0 cm): 1.14 cm LVOT Diameter 2.00 cm Left Atrium Left Atrium Systolic Dimension: 3.89 cm Mitral Valve Right Ventricle Aorta AO Root Diam: 3.08 cm Ascending Ao Diam: 2.97 cm Aortic Valve Tricuspid Valve Pulmonic Valve Right Atrium Dictated by: Rebeca Madrigal M.D. on 10/22/2024 at 15:30 Approved by: Rebeca Madrigal M.D. on 10/22/2024 at 15:33 Dictated By: Rebeca Madrigal M.D. Signed By: 10/22/24 1534 DD/ 1534 TD/TT: Superintendent Horticulture: [place] [address] Cardiology Report Signed Patient: MARY JANE SCHAEFFER MR#: [id number] : 1970 Acct:[id number] Age/Sex: 54 / F ADM Date: 10/21/24 Loc: [place] 229-[address]: Fransisco Chatterjee M.D. Ordering Physician: Sea Chatterjee M.D. Date of Service: 10/22/24 Procedure(s): CA ech o limited Accession Number(s): [id number] cc: ANN FOURNIER ; Sea Chatterjee M.D. Patient [facility]: [facility] MR#: [id number] : 1970 Exam Date: 10/22/2024 Ordering Doctor: DR SEA CHATTERJEE . ECHOCARDIOGRAM REPORT PROCEDURE: CA ECHO LIMITED INDICATIONS: Dyspnea , elevated BNP, diabetes, hypertension, CAD COMPARISON: None. DESCRIPTION: Limited ECHOCARDIOGRAM Real-time transthoracic echocardiography wit h 2D and M-mode performed. QUALITY: Limited echocardiogram per physician order. Technically difficult due to patient's condition. LEFT VENTRICLE: Norm al chamber size. Borderline left ventricular hypertrophy. LV EF: Global left ventricular systolic function is difficult to assess but appears preserve d; visually estimated ejection fraction is 55%. Unable to assess regional wall motion abnormalities. Suggest contrast study for better delineation of endocardial borders. LEFT ATRIUM: Normal in size. RIGHT ATRIUM: Poorly seen. RIGHT VENTRICLE: Nor mal in size and systolic function. TRICUSPID VALVE: Nor mal mobility and thickness. MITRAL VALVE: Normal mobility and thickness. AORTIC VALVE: Normal trileaflet appearance. No visible sclerosis. Normal leaflet mobility. AORTIC ROOT: Normal diameter and appearance. Ascending aorta is normal in size. PULMONIC VALVE: Norm al thickness and mobility. PERICARDIUM: Anterio r free space; trivial effusion versus fat pad. CONCLUSION: 1. Global left ventricular systolic function is difficult to assess but appears preserved; visually estimated ejection fraction is 55% 2. The right ventric le appears normal in size and systolic function 3. Borderline left ventricular hypertrophy 4. The left atrium i s normal in size 5. Anterior face may ; trivial effusion versus fat pad A limited echocardio gram was performed Adult Echocardiograp hy Procedure Report Left Ventricle LVEDD (3.7 - 5.6 cm) : 4.68 cm LVESD (2.2 - 4.0 cm) : 3.22 cm LVIVS thickness (0.6 - 1.2 cm): 1.05 cm LVPW thickness (0.5 - 1.0 cm): 1.14 cm LVOT Diameter 2.00 cm Left Atrium Left Atrium Systolic Dimension: 3.89 cm Mitral Valve Right Ventricle Aorta AO Root Diam: 3.08 cm Ascending Ao Diam: 2 .97 cm Aortic Valve Tricuspid Valve Pulmonic Valve Right Atrium Dictated by: Rebeca Madrigal M.D. on 10/22/2024 at 15:30 Approved by: Rebeca Madrigal M.D. on 10/22/2024 at 15:33 Dictated By: Rebeca Madrigal M.D. Signed By: 10/22/24 1534 DD/ 1534 TD/TT: Superintendent Horticulture: PROF JAVAN Guevara ([facility]) Reviewed date:10/23/2024 11:42:38 AM Interpretation: Performing Lab: Notes/Report: [facility] , Sodium 138 136-145 mmol/L Potassium 4.4 3.5-5.1 mmol/L Chloride 105 98-107 mmol/L Carbon Dioxide 22.8 21.0-32.0 mmol/L Anion Gap 14.6 Glucose 558 74-106 mg/dL RESULTS CALLED TO MAHAD HERRMANN RN Blood Urea Nitrogen 40.0 7.0-18.0 mg/dL Creatinine 1.83 0.55-1.02 mg/dL Estimated GFR ( Anneliese 35 >=60 mL/min/1.73m 2 Estimated GFR (Non- Michela 29 >=60 mL/min/1.73m 2 BUN Creatinine Ratio 21.9 Calcium 9.3 8.5-10.1 mg/dL Performing Lab: see note ML - [facility] LB PROF JAVAN Guevara ([facility]) Reviewed date:10/23/2024 11:42:38 AM Interpretation: Performing Lab: Notes/Report: [facility] , Sodium 142 136-145 mmol/L Potassium 4.1 3.5-5.1 mmol/L Chloride 106 98-107 mmol/L Carbon Dioxide 22.9 21.0-32.0 mmol/L Anion Gap 17.2 Glucose 377 74-106 mg/dL Blood Urea Nitrogen 40.0 7.0-18.0 mg/dL Creatinine 2.00 0.55-1.02 mg/dL Estimated GFR ( Anneliese 31 >=60 mL/min/1.73m 2 Estimated GFR (Non- Michela 26 >=60 mL/min/1.73m 2 BUN Creatinine Ratio 20.0 Calcium 9.0 8.5-10.1 mg/dL Performing Lab: see note ML - [facility] LB BNP Reviewed date:10/23/2024 11:42:38 AM Interpretation: Performing Lab: Notes/Report: [facility] , NT Pro B Type Natriuretic Pept 2578.0 <=900.0 pg/mL RESULTS CALLED TO Dina Mims RN @BY Elijah gAuilera [place] at 0648 Performing Lab: see note ML - [facility] LB CBC AUTO DIFF Reviewed date:10/23/2024 11:42:38 AM Interpretation: Performing Lab: Notes/Report: [facility] , White Blood Count 6.8 4.0-11.0 10 3/uL Red Blood Count 2.58 4.20-5.40 10 6/uL Hemoglobin 7.9 12.0-16.0 g/dL Hematocrit 24.3 36.0-48.0 % Mean Corpuscular Volume 94.2 81.0-99.0 fL Mean Corpuscular Hemoglobin 30.6 26.7-34.0 pg Mean Corpuscular HGB Conc 32.5 29.9-35.2 g/dL Red Cell Distribution Width 14.2 11.0-15.0 % Platelet Count 162 150-450 10 3/uL Mean Platelet Volume 12.4 9.5-13.5 fL Neutrophils Percent Auto 86.6 43.0-75.0 % Lymphocytes Percent Auto 8.1 20.5-60.0 % Monocytes Percent Auto 5.0 1.7-12.0 % Eosinophils Percent Auto 0.0 0.9-7.0 % Basophils Percent Auto 0.0 0.2-2.0 % Immature Granulocytes Pct Auto 0.3 0.0-0.5 % Neutrophils Absolute Auto 5.9 1.4-6.5 10 3/uL Lymphocytes Absolute Auto 0.6 1.2-3.8 10 3/uL Monocytes Absolute Auto 0.3 0.3-0.8 10 3/uL Eosinophils Absolute Auto 0.0 0.0-0.7 10 3/uL Basophils Absolute Auto 0.0 0.0-0.1 10 3/uL Immature Granulocytes Abs Auto 0.02 0.00-0.03 10 3/uL Performing Lab: see note ML - [facility] LB PROF 14(COMP METB) Reviewed date:10/23/2024 11:42:38 AM Interpretation: Performing Lab: Notes/Report: [facility] , Sodium 143 136-145 mmol/L Potassium 4.0 3.5-5.1 mmol/L Chloride 108 98-107 mmol/L Carbon Dioxide 23.7 21.0-32.0 mmol/L Anion Gap 15.3 Glucose 86 74-106 mg/dL Blood Urea Nitrogen 45.0 7.0-18.0 mg/dL Creatinine 1.75 0.55-1.02 mg/dL Estimated GFR ( Anneliese 36 >=60 mL/min/1.73m 2 Estimated GFR (Non- Michela 30 >=60 mL/min/1.73m 2 BUN Creatinine Ratio 25.7 Calcium 8.8 8.5-10.1 mg/dL Bilirubin Total 0.2 0.2-1.0 mg/dL Aspartate Amino Transferase 13 15-37 U/L Alanine Aminotransferase 20 14-59 U/L Alkaline Phosphatase 44 46-116 U/L Total Protein 6.3 6.4-8.2 g/dL Albumin Level 2.6 3.4-5.0 g/dL Globulin 3.7 Albumin Globulin Ratio 0.7 Performing Lab: see note ML - [facility] LB Troponin I High Sensitivity Reviewed date:10/23/2024 11:42:38 AM Interpretation: Performing Lab: Notes/Report: [facility] , Troponin I High Sensitivity 7.1 4.0-51.3 pg/mL CUT-OFF POINTS HAVE BEEN ESTABLISHED BASED ON THE FOURTH UNIVERSAL DEFINITION OF MYOCARDIAL INFARCTION. THE UPPER REFERENCE LIMIT (URL) OF TROPONIN, DEFINED THE 99TH PERCENTILE OF cTnI DISTRIBUTION IN A REFERENCE POPULATION, HAS BEEN CONFIRMED THE DECISION THRESHOLD FOR SC DIAGNOSIS. 99TH PERCENTILE = 51.4 PG/ML NOTE: HIGH-SENSITIVITY TROPONIN ASSAY IS NOT INTENDED TO BE USED IN ISOLATION BUT SHOULD BE INTERPRETED IN CONJUNCTION WITH OTHER DIAGNOSTIC AND CLINICAL INFORMATION. Performing Lab: see note ML - [facility] BLOOD CULTURE ID PANEL Reviewed date:11/11/2024 09:22:05 AM Interpretation: Performing Lab: Notes/Report: [facility] , CTX-M NOT APPLICABLE NOT DETECTE IMP NOT APPLICABLE NOT DETECTE KPC NOT APPLICABLE NOT DETECTE mcr-1 NOT APPLICABLE NOT DETECTE mecA/C NOT DETECTED NOT DETECTE --- 11/10/24 1748 --- mecA/C previously reported as: NOT APPLICABLE mecA/C and MREJ (MRSA) NOT APPLICABLE NOT DETECTE NDM NOT APPLICABLE NOT DETECTE OXA-48-like NOT APPLICABLE NOT DETECTE Mary/B NOT APPLICABLE NOT DETECTE VIM NOT APPLICABLE NOT DETECTE Source BLOOD Enterococcus faecalis NOT DETECTED NOT DETECTE Enterococcus faecium NOT DETECTED NOT DETECTE Listeria monocytogenes NOT DETECTED NOT DETECTE Staphylococcus spp. DETECTED NOT DETECTE RESULTS CALLED TO LINO MCCORMACK RN at 1800 --- 11/10/241800 --- Staph spp. previously reported as: NOT DETECTED Staphylococcus aureus NOT DETECTED NOT DETECTE RESULTS CALLED TO WENDY BANDA RN --- 11/10/241800 --- Staph. aureus previously reported as: DETECTED *A RESULTS CALLED TO WENDY BANDA RN Staphylococcus epidermidis DETECTED NOT DETECTE RESULTS CALLED TO WENDY BANDA RN Staphylococcus lugdunensis NOT DETECTED NOT DETECTE Streptococcus spp. NOT DETECTED NOT DETECTE Streptococcus agalactiae NOT DETECTED NOT DETECTE Streptococcus pneumoniae NOT DETECTED NOT DETECTE Streptococcus pyogenes NOT DETECTED NOT DETECTE A. calcoaceticus-baumannii Cpx NOT DETECTED NOT DETECTE Bacteroides fragilis NOT DETECTED NOT DETECTE Enterobacterales NOT DETECTED NOT DETECTE Enterobacter cloacae complex NOT DETECTED NOT DETECTE Escherichia coli NOT DETECTED NOT DETECTE Klebsiella aerogenes NOT DETECTED NOT DETECTE Klebsiella oxytoca NOT DETECTED NOT DETECTE Klebsiella pneumoniae group NOT DETECTED NOT DETECTE Proteus spp. NOT DETECTED NOT DETECTE Salmonella spp. NOT DETECTED NOT DETECTE Serratia marcescens NOT DETECTED NOT DETECTE Haemophilus influenzae NOT DETECTED NOT DETECTE Neisseria meningitidis NOT DETECTED NOT DETECTE Pseudomonas aeruginosa NOT DETECTED NOT DETECTE Stenotrophomonas maltophilia NOT DETECTED NOT DETECTE Priti albicans NOT DETECTED NOT DETECTE Priti auris NOT DETECTED NOT DETECTE Priti glabrata NOT DETECTED NOT DETECTE Priti krusei NOT DETECTED NOT DETECTE Priti parapsilosis NOT DETECTED NOT DETECTE Priti tropicalis NOT DETECTED NOT DETECTE Cryptococcus neoformans/gattii NOT DETECTED NOT DETECTE Performing Lab: see note ML - [facility] LB PROF CHEM 8 (BAS METB) Reviewed date:11/09/2024 09:51:05 AM Interpretation: Performing Lab: Notes/Report: Comment Elevated K+ [place] , Sodium 139 136-145 mmol/L Potassium 6.1 3.5-5.1 mmol/L RESULTS CALLED TO ISAMAR DRIVER RN @BY Tiki Romano at 2057 Chloride 105 98-107 mmol/L Carbon Dioxide 18.9 21.0-32.0 mmol/L Anion Gap 21.2 Glucose 587 74-106 mg/dL RESULTS CALLED TO ISAMAR DRIVER RN @BY Tiki Romano at 2057 Blood Urea Nitrogen 30.0 7.0-18.0 mg/dL Creatinine 1.48 0.55-1.02 mg/dL Estimated GFR ( Anneliese 44 >=60 mL/min/1.73m 2 Estimated GFR (Non- Michela 36 >=60 mL/min/1.73m 2 BUN Creatinine Ratio 20.3 Calcium 9.2 8.5-10.1 mg/dL Performing Lab: see note - [facility] LB Venous Blood Gas Reviewed date:11/08/2024 03:09:40 PM Interpretation: Performing Lab: Notes/Report: [place] , pH VBG 7.342 7.330-7.430 PCO2 VBG 33.1 40.0-52.0 mmHg Performing Lab: see note - [facility] LB Aerobe ID + Suscept Reviewed date:11/14/2024 12:08:30 PM Interpretation: Performing Lab: Notes/Report: [facility] , Aerobe ID + Suscept See Below For Report Aerobe ID + Suscept O:STAEPI Isolated Organism: 1.1 Antibiotic Interpretation POONAM Status Aerobe ID + Suscept *ABNORMAL* Aerobe ID + Suscept O:STAEPI Isolated Organism: 1.1 Antibiotic Interpretation POONAM Status Aerobe ID + Suscept Gram positive cocci Aerobe ID + Suscept O:STAEPI Isolated Organism: 1.1 Antibiotic Interpretation POONAM Status Aerobe ID + Suscept *ABNORMAL* Aerobe ID + Suscept O:STAEPI Isolated Organism: 1.1 Antibiotic Interpretation POONAM Status Aerobe ID + Suscept Recovered from aerob ic bottle only. Aerobe ID + Suscept O:STAEPI Isolated Organism: 1.1 Antibiotic Interpretation POONAM Status Aerobe ID + Suscept Organism: Staphyloco ccus epidermidis : Aerobe ID + Suscept O:STAEPI Isolated Organism: 1.1 Antibiotic Interpretation POONAM Status Aerobe ID + Suscept *ABNORMAL* Aerobe ID + Suscept O:STAEPI Isolated Organism: 1.1 Antibiotic Interpretation POONAM Status Aerobe ID + Suscept Based on susceptibil ity to oxacillin this isolate would be Aerobe ID + Suscept O:STAEPI Isolated Organism: 1.1 Antibiotic Interpretation POONAM Status Aerobe ID + Suscept susceptible to: Aerobe ID + Suscept O:STAEPI Isolated Organism: 1.1 Antibiotic Interpretation POONAM Status Aerobe ID + Suscept *Penicillinase-stabl e penicillins, such as: Aerobe ID + Suscept O:STAEPI Isolated Organism: 1.1 Antibiotic Interpretation POONAM Status Aerobe ID + Suscept Cloxacillin, Dicloxacillin, Nafcillin Aerobe ID + Suscept O:STAEPI Isolated Organism: 1.1 Antibiotic Interpretation POONAM Status Aerobe ID + Suscept *Beta-lactam combina tion agents, such as: Aerobe ID + Suscept O:STAEPI Isolated Organism: 1.1 Antibiotic Interpretation POONAM Status Aerobe ID + Suscept Amoxicillin-clavulan ic acid, Ampicillin-sulbactam, Aerobe ID + Suscept O:STAEPI Isolated Organism: 1.1 Antibiotic Interpretation POONAM Status Aerobe ID + Suscept Piperacillin-tazobactam Aerobe ID + Suscept O:STAEPI Isolated Organism: 1.1 Antibiotic Interpretation POONAM Status Aerobe ID + Suscept *Oral cephems, such as: Aerobe ID + Suscept O:STAEPI Isolated Organism: 1.1 Antibiotic Interpretation POONAM Status Aerobe ID + Suscept Cefaclor, Cefdinir, Cefpodoxime, Cefprozil, Cefuroxime, Aerobe ID + Suscept O:STAEPI Isolated Organism: 1.1 Antibiotic Interpretation POONAM Status Aerobe ID + Suscept Cephalexin, Loracarbef Aerobe ID + Suscept O:STAEPI Isolated Organism: 1.1 Antibiotic Interpretation POONAM Status Aerobe ID + Suscept *Parenteral cephems, such as: Aerobe ID + Suscept O:STAEPI Isolated Organism: 1.1 Antibiotic Interpretation POONAM Status Aerobe ID + Suscept Cefazolin, Cefepime, Cefotaxime, Cefotetan, Ceftaroline, Aerobe ID + Suscept O:STAEPI Isolated Organism: 1.1 Antibiotic Interpretation POONAM Status Aerobe ID + Suscept Ceftizoxime, Ceftriaxone, Cefuroxime Aerobe ID + Suscept O:STAEPI Isolated Organism: 1.1 Antibiotic Interpretation POONAM Status Aerobe ID + Suscept *Carbapenems, such as: Aerobe ID + Suscept O:STAEPI Isolated Organism: 1.1 Antibiotic Interpretation POONAM Status Aerobe ID + Suscept Doripenem, Ertapenem , Imipenem, Meropenem Aerobe ID + Suscept O:STAEPI Isolated Organism: 1.1 Antibiotic Interpretation POONAM Status Aerobe ID + Suscept Most isolates of Staphylococcus sp. produce a beta- Aerobe ID + Suscept O:STAEPI Isolated Organism: 1.1 Antibiotic Interpretation POONAM Status Aerobe ID + Suscept lactamase enzyme rendering them resistant to Aerobe ID + Suscept O:STAEPI Isolated Organism: 1.1 Antibiotic Interpretation POONAM Status Aerobe ID + Suscept penicillin. Please contact the laboratory if Aerobe ID + Suscept O:STAEPI Isolated Organism: 1.1 Antibiotic Interpretation POONAM Status Aerobe ID + Suscept penicillin is being considered for therapy. Aerobe ID + Suscept O:STAEPI Isolated Organism: 1.1 Antibiotic Interpretation POONAM Status Aerobe ID + Suscept Recovered from aerob ic bottle only. Aerobe ID + Suscept O:STAEPI Isolated Organism: 1.1 Antibiotic Interpretation POONAM Status Aerobe ID + Suscept Staphylococcus epidermidis Aerobe ID + Suscept O:STAEPI Isolated Organism: 1.1 Antibiotic Interpretation POONAM Status Aerobe ID + Suscept See Below For Report Aerobe ID + Suscept O:STAEPI Isolated Organism: 1.1 Antibiotic Interpretation POONAM Status Aerobe ID + Suscept Performed at: [facility] Aerobe ID + Suscept O:STAEPI Isolated Organism: 1.1 Antibiotic Interpretation POONAM Status Aerobe ID + Suscept [id number] [place], [place] [id number] Aerobe ID + Suscept O:STAEPI Isolated Organism: 1.1 Antibiotic Interpretation POONAM Status Aerobe ID + Suscept Loan Operations Manager: Janeth Menjivar PhD, Phone: [phone] Aerobe ID + Suscept O:STAEPI Isolated Organism: 1.1 Antibiotic Interpretation POONAM Status Aerobe ID + Suscept See Below For Report Aerobe ID + Suscept O:STAEPI Isolated Organism: 1.1 Antibiotic Interpretation POONAM Status Aerobe ID + Suscept Ciprofloxacin S F Aerobe ID + Suscept O:STAEPI Isolated Organism: 1.1 Antibiotic Interpretation POONAM Status Aerobe ID + Suscept Erythromycin S F Aerobe ID + Suscept O:STAEPI Isolated Organism: 1.1 Antibiotic Interpretation POONAM Status Aerobe ID + Suscept Gentamicin S F Aerobe ID + Suscept O:STAEPI Isolated Organism: 1.1 Antibiotic Interpretation POONAM Status Aerobe ID + Suscept Levofloxacin S F Aerobe ID + Suscept O:STAEPI Isolated Organism: 1.1 Antibiotic Interpretation POONAM Status Aerobe ID + Suscept Linezolid S F Aerobe ID + Suscept O:STAEPI Isolated Organism: 1.1 Antibiotic Interpretation POONAM Status Aerobe ID + Suscept Moxifloxacin S F Aerobe ID + Suscept O:STAEPI Isolated Organism: 1.1 Antibiotic Interpretation POONAM Status Aerobe ID + Suscept Oxacillin S F Aerobe ID + Suscept O:STAEPI Isolated Organism: 1.1 Antibiotic Interpretation POONAM Status Aerobe ID + Suscept Rifampin S F Aerobe ID + Suscept O:STAEPI Isolated Organism: 1.1 Antibiotic Interpretation POONAM Status Aerobe ID + Suscept Tetracycline S F Aerobe ID + Suscept O:STAEPI Isolated Organism: 1.1 Antibiotic Interpretation POONAM Status Aerobe ID + Suscept Trimethoprim/Sulfame thox azole S F Aerobe ID + Suscept O:STAEPI Isolated Organism: 1.1 Antibiotic Interpretation POONAM Status Aerobe ID + Suscept Vancomycin S F Aerobe ID + Suscept O:STAEPI Isolated Organism: 1.1 Antibiotic Interpretation POONAM Status Aerobe ID + Suscept Clindamycin S F Aerobe ID + Suscept O:STAEPI Isolated Organism: 1.1 Antibiotic Interpretation POONAM Status Performing Lab: see note LC - [facility] LB SEE REPORT - Farm Helper Id information not found for OBX-specific television producer legend ECG 12 lead Reviewed date:11/09/2024 09:51:05 AM Interpretation: Performing Lab: Notes/Report: Source Facility: [place] [address] [place] [address] Electrocardiograph Report Signed Patient: MARY JANE SCHAEFFER MR#: [id number] : 1970 Acct:[id number] Age/Sex: 54 / F ADM Date: 11/08/24 Loc: MS 230-[address]: Sea Chatterjee M.D. Ordering Physician: Vickey Godoy Date of Service: 11/08/24 Procedure(s): ECG 12 lead Accession Number(s): [id number] cc: [place] Test Date: 2024-11-08 Pat [facility] Department: Room: - Gender: Female Radio Electronics Officer: : 1970 Requested By: 0919 Order Number: [id number] Reading MD: NANDA KAUR M.D. Measurements Intervals [place] Rate: 104 P: 52 NH: 148 QRS: 97 QRSD: 76 T: 49 QT: 340 QTc: 401 Interpretive Statements 1120 Sinus tachycardia 7102 Moderate right axis deviation 9140 abnormal rhythm ECG Compared to ECG 10/22/2024 11:19:58 Right-axis deviation now present Sinus rhythm no longer present Poor R-wave progression no longer present Electronically Signed On 11-08-2024 21:53:58 EDT by NANDA KAUR M.D. Dictated By: NANDA KAUR Signed By: 11/08/24 215 DD/ 1345 TD/TT: Superintendent Horticulture: [place] [address] Electrocardiograph Report Signed Patient: MARY JANE SCHAEFFER MR#: [id number] : 1970 Acct:[id number] Age/Sex: 54 / F ADM Date: 11/08/24 Loc: MS 230-[address]: Fransisco Chatterjee M.D. Ordering Physician: Vickey Godoy Date of Service: 11/08/24 Procedure(s): ECG 12 lead Accession Number(s): [id number] cc: [place] Test Date: 2024-11-08 Pat Name[facility] Department: 95 Room: - Gender: Female Radio Electronics Officer: : 1970 Requested By: 0919 Order Number: [id number] Reading MD: NANDA KAUR M.D. Measurements Intervals [place] Rate: 104 P: 52 NH: 148 QRS: 97 QRSD: 76 T: 49 QT: 340 QTc: 401 Interpretive Statements 1120 Sinus tachycardia 7102 Moderate right axis deviation 9140 abnormal rhy th ECG Compared to ECG 10/22/2024 11:19:58 Right-axis deviation now present Sinus rhythm no long er present Poor R-wave progress ion no longer present Electronically Kianna d On 11-08-2024 21:53:58 EDT by NANDA KAUR M.D. Dictated By: NANDA KAUR Signed By: 11/08/24 2150 DD/ 1345 TD/TT: Superintendent Horticulture: XR chest 1V Reviewed date:11/08/2024 03:09:40 PM Interpretation: Performing Lab: Notes/Report: Source Facility: [place] [address] XRay Report Signed Patient: MARY JANE SCHAEFFER MR#: [id number] : 1970 Acct:[id number] Age/Sex: 54 / F ADM Date: 11/08/24 Loc: ER Attending Dr: Ordering Physician: Vickey Godoy Date of Service: 11/08/24 Procedure(s): XR chest 1V Accession Number(s): [id number] cc: ANN FOURNIER ; Vickey Godoy [place] [id number] Patient Name: MARY JANE SCHAEFFER MRN: [id number] date: 1970 Sex: F Assigned Patient Location: ER Current Patient Location: ER Accession/Order Number: [id number] Exam Date: 11/08/2024 14:39 Report Date: 11/08/2024 14:40 At the request of: VICKEY GODOY MD Procedure: XR chest 1V Plain film chest Single view HISTORY: Acute shortness of breath for 2 days duration. Right lower extremity swelling. COMPARISON: 10/21/2024 FINDINGS: SUPPORT DEVICES: None POSTSURGICAL CHANGES: None HEART: Cardiomegaly PULMONARY JAZMYNE: Hilar vascular congestion MEDIASTINUM: Unremarkable LUNGS AND PLEURA: Perihilar and basilar groundglass parenchymal densities. Basilar pleural reactions. BONY STRUCTURES: Intact ADDITIONAL FINDINGS None XR/XR chest 1V IMPRESSION: CHF findings a small pleural effusions. Impression dictated by: Vickey Jackson M.D. 11/08/2024 2:40 PM Dictation Location[facility] Electronically authenticated by: [id number] Y Date: 11/08/2024 14:40 Dictated By: Vickey Jackson D.O. Signed By: 11/08/24 1442 DD/ 39 TD/TT: Superintendent Horticulture: [place] [address] XRay Report Signed Patient: MARY JANE SCHAEFFER MR#: [id number] : 1970 Acct:[id number] Age/Sex: 54 / F ADM Date: 11/08/24 Loc: ER Attending Dr: Ordering Physician: Vickey Godoy Date of Service: 11/08/24 Procedure(s): XR [address] st 1V Accession Number(s): [id number] cc: ANN FOURNIER ; Vickey Godoy [place] [id number] Patient Name: MARY JANE SCHAEFFER MRN: [id number] date: 1970 Sex: F Assigned Patient Location: ER Current Patient Location: ER Accession/Order Numb er: [id number] Exam Date: 11/08/2024 14:39 Report Date: 11/08/2024 14:40 At the request of: VICKEY GODOY MD Procedure: XR chest 1V Plain film chest Sin gle view HISTORY: Acute short ness of breath for 2 days duration. Right lower extremity swelling. COMPARISON: 10/21/2024 FINDINGS: SUPPORT DEVICES: None POSTSURGICAL CHANGES : None HEART: Cardiomegaly PULMONARY JAZMYNE: Jazmyne r vascular congestion MEDIASTINUM: Unremarkable LUNGS AND PLEURA: Perihilar and basilar groundglass parenchymal densities. Basilar pleural reactions. BONY STRUCTURES: Intact ADDITIONAL FINDINGS None X R/XR chest 1V IMPRESSION: CHF find ings a small pleural effusions. Impression dictated by: Vickey Jackson M.D. 11/08/2024 2:40 PM Dictation Location: [facility] Electronically authenticated by: [id number] Y Date: 11/08/2024 14:40 Dictated By: Vickey Jackson D.O. Signed By: 11/08/24 1442 DD/ 1440 TD/TT: Superintendent Horticulture: Troponin I High Sensitivity Reviewed date:11/09/2024 03:27:07 PM Interpretation: Performing Lab: Notes/Report: [facility] , Troponin I High Sensitivity 25.7 4.0-51.3 pg/mL CUT-OFF POINTS HAVE BEEN ESTABLISHED BASED ON THE FOURTH UNIVERSAL DEFINITION OF MYOCARDIAL INFARCTION. THE UPPER REFERENCE LIMIT (URL) OF TROPONIN, DEFINED THE 99TH PERCENTILE OF cTnI DISTRIBUTION IN A REFERENCE POPULATION, HAS BEEN CONFIRMED THE DECISION THRESHOLD FOR SC DIAGNOSIS. 99TH PERCENTILE = 51.4 PG/ML NOTE: HIGH-SENSITIVITY TROPONIN ASSAY IS NOT INTENDED TO BE USED IN ISOLATION BUT SHOULD BE INTERPRETED IN CONJUNCTION WITH OTHER DIAGNOSTIC AND CLINICAL INFORMATION. Performing Lab: see note ML - [facility] LB BNP Reviewed date:11/09/2024 03:27:07 PM Interpretation: Performing Lab: Notes/Report: [facility] , NT Pro B Type Natriuretic Pept 4795.0 <=900.0 pg/mL RESULTS CALLED TO Wendy Banda RN Performing Lab: see note ML - [facility] LB CBC AUTO DIFF Reviewed date:11/09/2024 03:27:07 PM Interpretation: Performing Lab: Notes/Report: [facility] , White Blood Count 6.5 4.0-11.0 10 3/uL Red Blood Count 2.93 4.20-5.40 10 6/uL Hemoglobin 9.1 12.0-16.0 g/dL Hematocrit 28.1 36.0-48.0 % Mean Corpuscular Volume 95.9 81.0-99.0 fL Mean Corpuscular Hemoglobin 31.1 26.7-34.0 pg Mean Corpuscular HGB Conc 32.4 29.9-35.2 g/dL Red Cell Distribution Width 14.6 11.0-15.0 % Platelet Count 153 150-450 10 3/uL Mean Platelet Volume 12.1 9.5-13.5 fL Neutrophils Percent Auto 86.2 43.0-75.0 % Lymphocytes Percent Auto 11.2 20.5-60.0 % Monocytes Percent Auto 1.8 1.7-12.0 % Eosinophils Percent Auto 0.0 0.9-7.0 % Basophils Percent Auto 0.2 0.2-2.0 % Immature Granulocytes Pct Auto 0.6 0.0-0.5 % Neutrophils Absolute Auto 5.6 1.4-6.5 10 3/uL Lymphocytes Absolute Auto 0.7 1.2-3.8 10 3/uL Monocytes Absolute Auto 0.1 0.3-0.8 10 3/uL Eosinophils Absolute Auto 0.0 0.0-0.7 10 3/uL Basophils Absolute Auto 0.0 0.0-0.1 10 3/uL Immature Granulocytes Abs Auto 0.04 0.00-0.03 10 3/uL Performing Lab: see note - [facility] LB PROF 14(COMP METB) Reviewed date:11/09/2024 03:27:07 PM Interpretation: Performing Lab: Notes/Report: [facility] , Sodium 139 136-145 mmol/L Potassium 5.2 3.5-5.1 mmol/L Chloride 105 98-107 mmol/L Carbon Dioxide 19.6 21.0-32.0 mmol/L Anion Gap 19.6 Glucose 518 74-106 mg/dL RESULTS CALLED TO TAMIA ROONEY RN @BY Tiki Romano at 0612 Blood Urea Nitrogen 32.0 7.0-18.0 mg/dL Creatinine 1.43 0.55-1.02 mg/dL Estimated GFR ( Anneliese 46 >=60 mL/min/1.73m 2 Estimated GFR (Non- Michela 38 >=60 mL/min/1.73m 2 BUN Creatinine Ratio 22.4 Calcium 9.2 8.5-10.1 mg/dL Bilirubin Total 0.6 0.2-1.0 mg/dL Aspartate Amino Transferase 16 15-37 U/L Alanine Aminotransferase 23 14-59 U/L Alkaline Phosphatase 59 46-116 U/L Total Protein 6.4 6.4-8.2 g/dL Albumin Level 2.9 3.4-5.0 g/dL Globulin 3.5 Albumin Globulin Ratio 0.8 Performing Lab: see note ML - [facility] LB Troponin I High Sensitivity Reviewed date:11/09/2024 03:27:07 PM Interpretation: Performing Lab: Notes/Report: [facility] , Troponin I High Sensitivity 20.0 4.0-51.3 pg/mL CUT-OFF POINTS HAVE BEEN ESTABLISHED BASED ON THE FOURTH UNIVERSAL DEFINITION OF MYOCARDIAL INFARCTION. THE UPPER REFERENCE LIMIT (URL) OF TROPONIN, DEFINED THE 99TH PERCENTILE OF cTnI DISTRIBUTION IN A REFERENCE POPULATION, HAS BEEN CONFIRMED THE DECISION THRESHOLD FOR SC DIAGNOSIS. 99TH PERCENTILE = 51.4 PG/ML NOTE: HIGH-SENSITIVITY TROPONIN ASSAY IS NOT INTENDED TO BE USED IN ISOLATION BUT SHOULD BE INTERPRETED IN CONJUNCTION WITH OTHER DIAGNOSTIC AND CLINICAL INFORMATION. Performing Lab: see note ML - [facility] LB Urine Culture - [facility] Reviewed date:11/14/2024 12:08:30 PM Interpretation: Performing Lab: Notes/Report: [facility] , Urine Culture - [facility] See Below For Report Urine Culture - [facility] No Growth 2 Days Urine Culture - [facility] Urine Culture - [facility] No Growth 2 Days [facility]rine [facility] Testing performed a [facility] Urine Culture - [facility] No Growth 2 Days Urine Culture [facility] [address] [place] [address] Urine Culture - [facility] No Growth 2 Days Performing Lab: see note ML - [facility] LB CBC AUTO DIFF Reviewed date:11/10/2024 12:49:15 PM Interpretation: Performing Lab: Notes/Report: [facility] , White Blood Count 8.7 4.0-11.0 10 3/uL Red Blood Count 3.20 4.20-5.40 10 6/uL Hemoglobin 9.9 12.0-16.0 g/dL Hematocrit 30.7 36.0-48.0 % Mean Corpuscular Volume 95.9 81.0-99.0 fL Mean Corpuscular Hemoglobin 30.9 26.7-34.0 pg Mean Corpuscular HGB Conc 32.2 29.9-35.2 g/dL Red Cell Distribution Width 14.8 11.0-15.0 % Platelet Count 184 150-450 10 3/uL Mean Platelet Volume 11.8 9.5-13.5 fL Neutrophils Percent Auto 71.7 43.0-75.0 % Lymphocytes Percent Auto 18.9 20.5-60.0 % Monocytes Percent Auto 5.6 1.7-12.0 % Eosinophils Percent Auto 2.7 0.9-7.0 % Basophils Percent Auto 0.5 0.2-2.0 % Immature Granulocytes Pct Auto 0.6 0.0-0.5 % Neutrophils Absolute Auto 6.3 1.4-6.5 10 3/uL Lymphocytes Absolute Auto 1.7 1.2-3.8 10 3/uL Monocytes Absolute Auto 0.5 0.3-0.8 10 3/uL Eosinophils Absolute Auto 0.2 0.0-0.7 10 3/uL Basophils Absolute Auto 0.0 0.0-0.1 10 3/uL Immature Granulocytes Abs Auto 0.05 0.00-0.03 10 3/uL Performing Lab: see note ML - [facility] LB XR chest 1V Reviewed date:11/11/2024 12:54:12 PM Interpretation: Performing Lab: Notes/Report: Source Facility: [place] [address] [place] [address] XRay Report Signed Patient: ROLYMARY JANE MR#: [id number] : 1970 Acct:[id number] Age/Sex: 54 / F ADM Date: 11/08/24 Loc: [place] 230-[address]: Sea Chatterjee M.D. Ordering Physician: Sea Chatterjee M.D. Date of Service: 11/10/24 Procedure(s): XR chest 1V Accession Number(s): [id number] cc: ANN FOURNIER ; Sea Chatterjee M.D. [place] [id number] Patient Name: MARY JANE SCHAEFFER MRN: [id number] date: 1970 Sex: F Assigned Patient Location: MS Current Patient Location: MS Accession/Order Number: [id number] Exam Date: 11/10/2024 20:09 Report Date: 11/10/2024 20:11 At the request of: SAE CHATTERJEE MD Procedure: XR chest 1V Plain film chest Single view HISTORY: PICC line placement COMPARISON: 11/10/2024 FINDINGS: SUPPORT DEVICES: Right PICC line tip overlies the distal SVC. POSTSURGICAL CHANGES: Right rotator cuff repair changes HEART: Within normal limits PULMONARY JAZMYNE: Within normal limits MEDIASTINUM: Unremarkable LUNGS AND PLEURA: Similar left greater than right mild to moderate basilar pleural-parenchymal changes. No pneumothorax. BONY STRUCTURES: Intact ADDITIONAL FINDINGS None XR/XR chest 1V IMPRESSION: Adequate position of right arm PICC line. Similar basilar pleural-parenchymal changes. Impression dictated by: Vickey Jackson M.D. 11/10/2024 8:11 PM Dictation Location: [place] [address] Electronically authenticated by: [id number] Y Date: 11/10/2024 20:11 Dictated By: Vickey Jackson D.O. Signed By: 11/10/242013 DD/ 10 TD/TT: Superintendent Horticulture: [place] [address] XRay Report Signed Patient: MARY JANE SCHAEFFER MR#: [id number] : 1970 Acct:[id number] Age/Sex: 54 / F ADM Date: 11/08/24 Loc: MS 230-[address]: Fransisco Chatterjee M.D. Ordering Physician: Sea Chatterjee M.D. Date of Service: 11/10/24 Procedure(s): XR [address] [facility] 1V Accession Number(s): [id number] cc: ANN FOURNIER ; Sea Chatterjee M.D. [place] [address] Patient Name: MARY JANE SCHAEFFER MRN: [id number] date: 1970 Sex: F Assigned Patient Location: MS Current Patient Location: MS Accession/Order Numb er: [id number] Exam Date: 11/10/2024 20:09 Report Date: 11/10/2024 20:11 At the request of: SEA CHATTERJEE MD Procedure: XR chest 1V Plain film chest Sin gle view HISTORY: PICC line placement COMPARISON: 11/10/2024 FINDINGS: SUPPORT DEVICES: Rig ht PICC line tip overlies the distal SVC. POSTSURGICAL CHANGES : Right rotator cuff repair changes HEART: Within normal limits PULMONARY JAZMYNE: With in normal limits MEDIASTINUM: Unremarkable LUNGS AND PLEURA: Similar left greater than right mild to moderate basilar pleural-parenchymal changes. No pneumothorax. BONY STRUCTURES: Intact ADDITIONAL FINDINGS None X R/XR chest 1V IMPRESSION: Adequate position of right arm PICC line. Similar basilar pleural-parenchymal changes. Impression dictated by: Vickey Jackson M.D. 11/10/2024 8:11 PM Dictation Location: [place] [address] Electronically authenticated by: [id number] Y Date: 11/10/2024 20:11 Dictated By: Vickey Jackson D.O. Signed By: 11/10/242013 DD/ 10 TD/TT: Superintendent [employer]: BNP Reviewed date:11/11/2024 12:54:12 PM Interpretation: Performing Lab: Notes/Report: [facility] , NT Pro B Type Natriuretic Pept 1303.0 <=900.0 pg/mL RESULTS CALLED TO ISAMAR DRIVER RN @BY Tiki Romano at 0633 Performing Lab: see note ML - [facility] LB CBC AUTO DIFF Reviewed date:11/11/2024 12:54:12 PM Interpretation: Performing Lab: Notes/Report: [facility] , White Blood Count 5.0 4.0-11.0 10 3/uL Red Blood Count 3.01 4.20-5.40 10 6/uL Hemoglobin 9.3 12.0-16.0 g/dL Hematocrit 28.8 36.0-48.0 % Mean Corpuscular Volume 95.7 81.0-99.0 fL Mean Corpuscular Hemoglobin 30.9 26.7-34.0 pg Mean Corpuscular HGB Conc 32.3 29.9-35.2 g/dL Red Cell Distribution Width 14.5 11.0-15.0 % Platelet Count 150 150-450 10 3/uL Mean Platelet Volume 11.8 9.5-13.5 fL Neutrophils Percent Auto 56.0 43.0-75.0 % Lymphocytes Percent Auto 27.4 20.5-60.0 % Monocytes Percent Auto 8.8 1.7-12.0 % Eosinophils Percent Auto 6.6 0.9-7.0 % Basophils Percent Auto 0.4 0.2-2.0 % Immature Granulocytes Pct Auto 0.8 0.0-0.5 % Neutrophils Absolute Auto 2.8 1.4-6.5 10 3/uL Lymphocytes Absolute Auto 1.4 1.2-3.8 10 3/uL Monocytes Absolute Auto 0.4 0.3-0.8 10 3/uL Eosinophils Absolute Auto 0.3 0.0-0.7 10 3/uL Basophils Absolute Auto 0.0 0.0-0.1 10 3/uL Immature Granulocytes Abs Auto 0.04 0.00-0.03 10 3/uL Performing Lab: see note ML - [facility] LB PROF 14(COMP METB) Reviewed date:11/11/2024 12:54:12 PM Interpretation: Performing Lab: Notes/Report: [facility] , Sodium 141 136-145 mmol/L Potassium 4.3 3.5-5.1 mmol/L Chloride 103 98-107 mmol/L Carbon Dioxide 29.5 21.0-32.0 mmol/L Anion Gap 12.8 Glucose 284 74-106 mg/dL Blood Urea Nitrogen 57.0 7.0-18.0 mg/dL Creatinine 1.79 0.55-1.02 mg/dL Estimated GFR ( Anneliese 35 >=60 mL/min/1.73m 2 Estimated GFR (Non- Michela 29 >=60 mL/min/1.73m 2 BUN Creatinine Ratio 31.8 Calcium 8.5 8.5-10.1 mg/dL Bilirubin Total 0.4 0.2-1.0 mg/dL Aspartate Amino Transferase 14 15-37 U/L Alanine Aminotransferase 18 14-59 U/L Alkaline Phosphatase 48 46-116 U/L Total Protein 5.6 6.4-8.2 g/dL Albumin Level 2.5 3.4-5.0 g/dL Globulin 3.1 Albumin Globulin Ratio 0.8 Performing Lab: see note ML - [facility] LB CBC AUTO DIFF Reviewed date:11/12/2024 12:54:41 PM Interpretation: Performing Lab: Notes/Report: [facility] , White Blood Count 4.9 4.0-11.0 10 3/uL Red Blood Count 2.99 4.20-5.40 10 6/uL Hemoglobin 9.1 12.0-16.0 g/dL Hematocrit 28.4 36.0-48.0 % Mean Corpuscular Volume 95.0 81.0-99.0 fL Mean Corpuscular Hemoglobin 30.4 26.7-34.0 pg Mean Corpuscular HGB Conc 32.0 29.9-35.2 g/dL Red Cell Distribution Width 14.4 11.0-15.0 % Platelet Count 165 150-450 10 3/uL Mean Platelet Volume 12.3 9.5-13.5 fL Neutrophils Percent Auto 54.2 43.0-75.0 % Lymphocytes Percent Auto 30.2 20.5-60.0 % Monocytes Percent Auto 7.0 1.7-12.0 % Eosinophils Percent Auto 7.8 0.9-7.0 % Basophils Percent Auto 0.2 0.2-2.0 % Immature Granulocytes Pct Auto 0.6 0.0-0.5 % Neutrophils Absolute Auto 2.6 1.4-6.5 10 3/uL Lymphocytes Absolute Auto 1.5 1.2-3.8 10 3/uL Monocytes Absolute Auto 0.3 0.3-0.8 10 3/uL Eosinophils Absolute Auto 0.4 0.0-0.7 10 3/uL Basophils Absolute Auto 0.0 0.0-0.1 10 3/uL Immature Granulocytes Abs Auto 0.03 0.00-0.03 10 3/uL Performing Lab: see note ML - [facility] LB PROF 14(COMP METB) Reviewed date:11/12/2024 12:54:41 PM Interpretation: Performing Lab: Notes/Report: [facility] , Sodium 141 136-145 mmol/L Potassium 4.2 3.5-5.1 mmol/L Chloride 103 98-107 mmol/L Carbon Dioxide 30.4 21.0-32.0 mmol/L Anion Gap 11.8 Glucose 170 74-106 mg/dL Blood Urea Nitrogen 57.0 7.0-18.0 mg/dL Creatinine 1.83 0.55-1.02 mg/dL Estimated GFR ( Anneliese 35 >=60 mL/min/1.73m 2 Estimated GFR (Non- Michela 29 >=60 mL/min/1.73m 2 BUN Creatinine Ratio 31.1 Calcium 8.5 8.5-10.1 mg/dL Bilirubin Total 0.3 0.2-1.0 mg/dL Aspartate Amino Transferase 13 15-37 U/L Alanine Aminotransferase 16 14-59 U/L Alkaline Phosphatase 53 46-116 U/L Total Protein 5.7 6.4-8.2 g/dL Albumin Level 2.3 3.4-5.0 g/dL Globulin 3.4 Albumin Globulin Ratio 0.7 Performing Lab: see note ML - [facility] LB BNP Reviewed date:11/12/2024 12:54:41 PM Interpretation: Performing Lab: Notes/Report: [facility] , NT Pro B Type Natriuretic Pept 532.0 <=900.0 pg/mL Performing Lab: see note ML - [facility] LB VANCOMYCIN TROUGH Reviewed date:11/11/2024 05:22:23 PM Interpretation: Performing Lab: Notes/Report: [facility] , Vancomycin Trough 31.9 5.0-20.0 ug/mL RESULTS CALLED TO MAHAD HERRMANN RN Performing Lab: see note - [facility] LB XR chest 2V Reviewed date:11/10/2024 12:49:15 PM Interpretation: Performing Lab: Notes/Report: Source Facility: [place] [address] [place] [address] XRay Report Signed Patient: MARY JANE SCHAEFFER MR#: [id number] : 1970 Acct:[id number] Age/Sex: 54 / F ADM Date: 11/08/24 Loc: MS 230-[address]: Sea Chatterjee M.D. Ordering Physician: Sea Chatterjee M.D. Date of Service: 11/10/24 Procedure(s): XR chest 2V Accession Number(s): [id number] cc: ANN FOURNIER ; Sea Chatterjee M.D. [place] [address] Patient Name: MARY JANE SCHAEFFER MRN: [id number] date: 1970 Sex: F Assigned Patient Location: MS Current Patient Location: MS Accession/Order Number: [id number] Exam Date: 11/10/2024 09:14 Report Date: 11/10/2024 09:19 At the request of: SEA CHATTERJEE MD Procedure: XR chest 2V PA AND LATERAL CHEST: CLINICAL HISTORY: follow up pneumonia , pleural effusions COMPARISON: CT and chest x-ray 11/08/2024 Bibasilar pleural-parenchymal changes are still present, left slightly greater than right where the hemidiaphragm is obscured. There is additional patchy groundglass opacity at the right lower lung. Findings may be slightly improved. No pneumothorax is visualized. The heart is top normal in size. The hilar and mediastinal silhouettes are within normal limits. The visualized bony thorax is intact. There is endplate spurring at the spine. [place] pins are noted at the right humeral head. XR/XR chest 2V IMPRESSION: CONTINUED PLEURAL-PARENCHYMAL CHANGES. DESPITE DIFFERENCES IN TECHNIQUE AND MODALITY, SLIGHT INTERVAL IMPROVEMENT IS SUSPECTED. Impression dictated by: Kim Coleman M.D. 11/10/2024 9:19 AM Dictation Location: [place] [address] Electronically authenticated by: [id number] Y Date: 11/10/2024 09:19 Dictated By: Kim Coleman M.D. Signed By: 11/10/24921 DD/ 8 TD/TT: Superintendent Horticulture: [place] [address] XRay Report Signed Patient: MARY JANE SCHAEFFER MR#: [id number] : 1970 Acct:[id number] Age/Sex: 54 / F ADM Date: 11/08/24 Loc: [place] 230-[address]: Fransisco Chatterjee M.D. Ordering Physician: Sea Chatterjee M.D. Date of Service: 11/10/24 Procedure(s): XR [address] 2V Accession Number(s): [id number] cc: ANN FOURNIER ; Sea Chatterjee M.D. [address] [address] Patient Name: MARY JANE SCHAEFFER MRN: [id number] date: 1970 Sex: F Assigned Patient Location: MS Current Patient Location: MS Accession/Order Numb er: [id number] Exam Date: 11/10/2024 09:14 Report Date: 11/10/2024 09:19 At the request of: SEA CHATTERJEE MD Procedure: XR chest 2V PA AND LATERAL CHEST: CLINICAL HISTORY: fo llow up pneumonia , pleural effusions COMPARISON: CT and c hest x-ray 11/08/2024 Bibasilar pleural-parenchymal changes are still present, left slightly greater than right where the hemidiaphragm is obscured. There is additional patchy groundglass opacity at the right lower lung. Findings may be slightly improved. No pneumothorax is visualized. The heart is top normal in size. The hilar and mediastinal silhouettes are within normal limits. The visualized bony thor ax is intact. There is endplate spurring at the spine. [place] pins are note d at the right humeral head. X R/XR chest 2V IMPRESSION: CONTINUED PLEURAL-PARENCHYMAL CHANGES. DESPITE DIFFERENCES IN TECHNIQUE AND MODALITY, SLIGHT INTERVAL IMPROVEMENT IS SUSPECTED. Impression dictated by: Kim Coleman M.D. 11/10/2024 9:19 AM Dictation Location: [place] [address] Electronically authenticated by: [id number] Y Date: 11/10/2024 09:19 Dictated By: Kim Coleman M.D. Signed By: 11/10/24921 DD/ 8 TD/TT: Superintendent [employer]iculture: PROF Merchant(COMP METB) Reviewed date:11/10/2024 12:49:15 PM Interpretation: Performing Lab: Notes/Report: [facility] , Sodium 143 136-145 mmol/L Potassium 4.1 3.5-5.1 mmol/L Chloride 102 98-107 mmol/L Carbon Dioxide 28.4 21.0-32.0 mmol/L Anion Gap 16.7 Glucose 156 74-106 mg/dL Blood Urea Nitrogen 48.0 7.0-18.0 mg/dL Creatinine 1.69 0.55-1.02 mg/dL Estimated GFR ( Anneliese 38 >=60 mL/min/1.73m 2 Estimated GFR (Non- Michela 31 >=60 mL/min/1.73m 2 BUN Creatinine Ratio 28.4 Calcium 9.5 8.5-10.1 mg/dL Bilirubin Total 0.5 0.2-1.0 mg/dL Aspartate Amino Transferase 16 15-37 U/L Alanine Aminotransferase 22 14-59 U/L Alkaline Phosphatase 56 46-116 U/L Total Protein 6.8 6.4-8.2 g/dL Albumin Level 3.1 3.4-5.0 g/dL Globulin 3.7 Albumin Globulin Ratio 0.8 Performing Lab: see note ML - [facility] LB BNP Reviewed date:11/10/2024 12:49:15 PM Interpretation: Performing Lab: Notes/Report: [facility] , NT Pro B Type Natriuretic Pept 3671.0 <=900.0 pg/mL RESULTS CALLED TO ERENDIRA MOYA RN @BY Tiki Romano at 0609 Performing Lab: see note - [facility] LB UA RANDOM W or MICROSCOPIC Reviewed date:11/09/2024 03:27:07 PM Interpretation: Performing Lab: Notes/Report: [facility] , Color Urine LT. YELLOW YELLOW Clarity Urine CLEAR CLEAR Specific [place] Urine 1.010 1.005-1.025 pH Urine 6.0 5.0-9.0 Protein Urine NEGATIVE NEG/TRACE mg/dL Glucose Urine UA >=1000 NEGATIVE mg/dL Bilirubin Urine NEGATIVE NEGATIVE Ketones Urine NEGATIVE NEGATIVE mg/dL Blood Urine LARGE NEGATIVE Nitrite Urine NEGATIVE NEGATIVE Urobilinogen Urine 0.2 0.2-1.0 EU/dL Leukocyte Esterase Urine NEGATIVE NEGATIVE WBC Urine 0-2 NONE SEEN #/HPF RBC Urine 10-20 0-2 #/HPF Bacteria Urine TRACE NONE SEEN #/HPF Mucus Urine NONE SEEN NONE SEEN Squamous Epithelial Cell Urine RARE NONE/RARE #/LPF Crystals Seen? None Seen None Seen #/HPF Cast Seen? NONE SEEN NONE SEEN #/LPF Performing Lab: see note ML - [facility] LB SARS-CoV-2 Ag* Reviewed date:11/08/2024 08:06:43 PM Interpretation: Performing Lab: Notes/Report: [facility] , SARS-CoV-2 Ag NEGATIVE NEGATIVE This [...] Performing Lab: see note ML - [facility] LB Troponin I High Sensitivity Reviewed date:11/08/2024 08:06:43 PM Interpretation: Performing Lab: Notes/Report: [facility] , Troponin I High Sensitivity 29.3 4.0-51.3 pg/mL CUT-OFF POINTS HAVE BEEN ESTABLISHED BASED ON THE FOURTH UNIVERSAL DEFINITION OF MYOCARDIAL INFARCTION. THE UPPER REFERENCE LIMIT (URL) OF TROPONIN, DEFINED THE 99TH PERCENTILE OF cTnI DISTRIBUTION IN A REFERENCE POPULATION, HAS BEEN CONFIRMED THE DECISION THRESHOLD FOR SC DIAGNOSIS. 99TH PERCENTILE = 51.4 PG/ML NOTE: HIGH-SENSITIVITY TROPONIN ASSAY IS NOT INTENDED TO BE USED IN ISOLATION BUT SHOULD BE INTERPRETED IN CONJUNCTION WITH OTHER DIAGNOSTIC AND CLINICAL INFORMATION. Performing Lab: see note ML - [facility] LB TSH Reviewed date:11/08/2024 08:06:43 PM Interpretation: Performing Lab: Notes/Report: [facility] , Thyroid Stimulating Hormone 1.272 0.358-3.740 uIU/mL Performing Lab: see note ML - [facility] LB T4 Reviewed date:11/08/2024 08:06:43 PM Interpretation: Performing Lab: Notes/Report: [facility] , T4 Thyroxine 10.00 4.80-13.90 ug/dL Performing Lab: see note ML - [facility] LB RSV Reviewed date:11/08/2024 08:06:43 PM Interpretation: Performing Lab: Notes/Report: [facility] , Respiratory Syncytial Virus Not Detected NOT DETECTE Performing Lab: see note ML - [facility] LB MAGNESIUM Reviewed date:11/08/2024 08:06:43 PM Interpretation: Performing Lab: Notes/Report: [facility] , Magnesium 1.9 1.8-2.4 mg/dL Performing Lab: see note ML - [facility] LB INFLUENZA A AND B AG Reviewed date:11/08/2024 08:06:43 PM Interpretation: Performing Lab: Notes/Report: [facility] , Influenza Virus A Antigen Negative [...] of the test. Performing Lab: see note - [facility] Troponin I High Sensitivity Reviewed date:11/08/2024 03:09:40 PM Interpretation: Performing Lab: Notes/Report: [place] , Troponin I High Sensitivity 30.2 4.0-51.3 pg/mL CUT-OFF POINTS HAVE BEEN ESTABLISHED BASED ON THE FOURTH UNIVERSAL DEFINITION OF MYOCARDIAL INFARCTION. THE UPPER REFERENCE LIMIT (URL) OF TROPONIN, DEFINED THE 99TH PERCENTILE OF cTnI DISTRIBUTION IN A REFERENCE POPULATION, HAS BEEN CONFIRMED THE DECISION THRESHOLD FOR SC DIAGNOSIS. 99TH PERCENTILE = 51.4 PG/ML NOTE: HIGH-SENSITIVITY TROPONIN ASSAY IS NOT INTENDED TO BE USED IN ISOLATION BUT SHOULD BE INTERPRETED IN CONJUNCTION WITH OTHER DIAGNOSTIC AND CLINICAL INFORMATION. Performing Lab: see note - [facility] Prothrombin Time INR Reviewed date:11/08/2024 03:09:40 PM Interpretation: Performing Lab: Notes/Report: [place] , Prothrombin Time 11.0 9.0-11.6 sec INR 1.04 DESIRED INR: 2.0-3.0 CONDITIONS NOT LISTED BELOW 2.5-3.5 FOR PROSTHETIC HEART VALVE REPLACEMENT 2.5-3.5 RECURRENT THROMBOSIS Performing Lab: see note - [facility] Blood Culture 1 Reviewed date:11/14/2024 12:08:30 PM Interpretation: Performing Lab: Notes/Report: LEFT AC [place] , Blood Culture 1 See Below For Report Blood Culture 1 NG5D NO GROWTH AT 5 DAYS.^NO GROWTH AT 5 DAYS. Performing Lab: see note [facility] LB PROF 14(COMP METB) Reviewed date:11/08/2024 03:09:40 PM Interpretation: Performing Lab: Notes/Report: [facility] , Sodium 141 136-145 mmol/L Potassium 6.0 3.5-5.1 mmol/L Chloride 107 98-107 mmol/L Carbon Dioxide 21.5 21.0-32.0 mmol/L Anion Gap 18.5 Glucose 536 74-106 mg/dL RESULTS CALLED TO SANDOVAL ALVARADO RN at 1451 Blood Urea Nitrogen 29.0 7.0-18.0 mg/dL Creatinine 1.56 0.55-1.02 mg/dL Estimated GFR ( Anneliese 42 >=60 mL/min/1.73m 2 Estimated GFR (Non- Michela 34 >=60 mL/min/1.73m 2 BUN Creatinine Ratio 18.6 Calcium 9.4 8.5-10.1 mg/dL Bilirubin Total 0.6 0.2-1.0 mg/dL Aspartate Amino Transferase 23 15-37 U/L Alanine Aminotransferase 27 14-59 U/L Alkaline Phosphatase 66 46-116 U/L Total Protein 6.7 6.4-8.2 g/dL Albumin Level 3.2 3.4-5.0 g/dL Globulin 3.5 Albumin Globulin Ratio 0.9 Performing Lab: see note ML - [facility] LB MAGNESIUM Reviewed date:11/08/2024 03:09:40 PM Interpretation: Performing Lab: Notes/Report: [facility] , Magnesium 1.9 1.8-2.4 mg/dL Performing Lab: see note ML - [facility] LB LACTATE or LACTIC ACID Reviewed date:11/08/2024 03:09:40 PM Interpretation: Performing Lab: Notes/Report: [facility] , Lactate/Lactic Acid 1.6 0.4-2.0 mmol/L Performing Lab: see note ML - [facility] LB CBC AUTO DIFF Reviewed date:11/08/2024 03:09:40 PM Interpretation: Performing Lab: Notes/Report: [facility] , White Blood Count 6.8 4.0-11.0 10 3/uL Red Blood Count 2.81 4.20-5.40 10 6/uL Hemoglobin 8.7 12.0-16.0 g/dL Hematocrit 27.4 36.0-48.0 % Mean Corpuscular Volume 97.5 81.0-99.0 fL Mean Corpuscular Hemoglobin 31.0 26.7-34.0 pg Mean Corpuscular HGB Conc 31.8 29.9-35.2 g/dL Red Cell Distribution Width 15.0 11.0-15.0 % Platelet Count 159 150-450 10 3/uL Mean Platelet Volume 12.0 9.5-13.5 fL Neutrophils Percent Auto 82.2 43.0-75.0 % Lymphocytes Percent Auto 10.8 20.5-60.0 % Monocytes Percent Auto 5.2 1.7-12.0 % Eosinophils Percent Auto 0.9 0.9-7.0 % Basophils Percent Auto 0.3 0.2-2.0 % Immature Granulocytes Pct Auto 0.6 0.0-0.5 % Neutrophils Absolute Auto 5.6 1.4-6.5 10 3/uL Lymphocytes Absolute Auto 0.7 1.2-3.8 10 3/uL Monocytes Absolute Auto 0.4 0.3-0.8 10 3/uL Eosinophils Absolute Auto 0.1 0.0-0.7 10 3/uL Basophils Absolute Auto 0.0 0.0-0.1 10 3/uL Immature Granulocytes Abs Auto 0.04 0.00-0.03 10 3/uL Performing Lab: see note ML - [facility] BNP Reviewed date:11/08/2024 03:09:40 PM Interpretation: Performing Lab: Notes/Report: [facility] , NT Pro B Type Natriuretic Pept 1937.0 <=900.0 pg/mL RESULTS CALLED TO SANDOVAL ALVARADO RN at 1451 Performing Lab: see note [facility] PROF CHEM 8 (BAS METB) Reviewed date:10/23/2024 11:42:38 AM Interpretation: Performing Lab: Notes/Report: [facility] , Sodium 138 136-145 mmol/L Potassium 4.0 3.5-5.1 mmol/L Chloride 104 98-107 mmol/L Carbon Dioxide 21.7 21.0-32.0 mmol/L Anion Gap 16.3 Glucose 500 74-106 mg/dL Blood Urea Nitrogen 42.0 7.0-18.0 mg/dL Creatinine 2.13 0.55-1.02 mg/dL Estimated GFR ( Anneliese 29 >=60 mL/min/1.73m 2 Estimated GFR (Non- Michela 24 >=60 mL/min/1.73m 2 BUN Creatinine Ratio 19.7 Calcium 9.4 8.5-10.1 mg/dL Performing Lab: see note - [facility] ECG 12 lead Reviewed date:10/23/2024 11:42:38 AM Interpretation: Performing Lab: Notes/Report: Source Facility: [place] [address] [place] [address] Electrocardiograph Report Signed Patient: MARY JANE SCHAEFFER MR#: [id number] : 1970 Acct:[id number] Age/Sex: 54 / F ADM Date: 10/21/24 Loc: MS 229-[address]: Sea Chatterjee M.D. Ordering Physician: Sea Chatterjee M.D. Date of Service: 10/22/24 Procedure(s): ECG 12 lead Accession Number(s): [id number] cc: [facility] Test Date: 2024-10-22 Pat Name: MARY JANE SCHAEFFER Department: Room: [facility] Gender: Female Radio Electronics Officer: : 1970 Requested By: SEA CHATTERJEE Order Number: [id number] Reading MD: NANDA KAUR M.D. Measurements Intervals [place] Rate: 75 P: 79 NH: 152 QRS: 151 QRSD: 87 T: 71 QT: 429 QTc: 480 Interpretive Statements SINUS RHYTHM POSSIBLE RIGHT VENTRICULAR HYPERTROPHY [SOME/ALL OF: PROMINENT R IN V1, LATE TRANSITION, RAD, MIKE, SSS] Poor R-wave progression Compared to ECG 10/22/2024 04:23:33 No significant changes Electronically Signed On 10-23-2024 9:02:34 EDT by NANDA KAUR M.D. Dictated By: NANDA KAUR Signed By: 10/23/24 0903 DD/ 1119 TD/TT: Superintendent Horticulture: [place] [address] Electrocardiograph Report Signed Patient: MARY JANE SCHAEFFER MR#: [id number] : 1970 Acct:[id number] Age/Sex: 54 / F ADM Date: 10/21/24 Loc: MS 229-[address]: Fransisco Chatterjee M.D. Ordering Physician: Sea Chatterjee M.D. Date of Service: 10/22/24 Procedure(s): ECG 12 lead Accession Number(s): [id number] cc: [facility] Test Date: 2024-10-22 Pat Name: MARY JANE SANTOS Department: 95 Room: [facility] Gender: Female Radio Electronics Officer: : 1970 Requested By: SEA CHATTERJEE Order Number: [id number] Reading MD: NANDA KAUR M.D. Measurements Intervals [place] Rate: 75 P: 79 NH: 152 QRS: 151 QRSD: 87 T: 71 QT: 429 QTc: 480 Interpretive Statements SINUS RHYTHM POSSIBLE RIGHT VENTRICULAR HYPERTROPHY [SOME/ALL OF: PROMINENT R IN V1, LATE TRANSITION, RAD, MIKE , SSS] Poor R-wave progression Compared to ECG 10/22/2024 04:23:33 No significant changes Electronically Kianna d On 10-23-2024 9:02:34 EDT by NANDA KAUR M.D. Dictated By: NANDA KAUR Signed By: 10/23/24 0903 DD/ 1119 TD/TT: Superintendent Horticulture: Troponin I High Sensitivity Reviewed date:10/23/2024 11:42:38 AM Interpretation: Performing Lab: Notes/Report: [facility] , Troponin I High Sensitivity 4.4 4.0-51.3 pg/mL CUT-OFF POINTS HAVE BEEN ESTABLISHED BASED ON THE FOURTH UNIVERSAL DEFINITION OF MYOCARDIAL INFARCTION. THE UPPER REFERENCE LIMIT (URL) OF TROPONIN, DEFINED THE 99TH PERCENTILE OF cTnI DISTRIBUTION IN A REFERENCE POPULATION, HAS BEEN CONFIRMED THE DECISION THRESHOLD FOR SC DIAGNOSIS. 99TH PERCENTILE = 51.4 PG/ML NOTE: HIGH-SENSITIVITY TROPONIN ASSAY IS NOT INTENDED TO BE USED IN ISOLATION BUT SHOULD BE INTERPRETED IN CONJUNCTION WITH OTHER DIAGNOSTIC AND CLINICAL INFORMATION. Performing Lab: see note ML - [facility] LB Manual Differential Reviewed date:10/23/2024 11:42:38 AM Interpretation: Performing Lab: Notes/Report: [facility] , Segmented Neutrophils % Manual 90.0 43.0-75.0 Lymphocytes Percent Manual 9.0 20.5-60.0 % Monocytes Percent Manual 1.0 1.7-12.0 % Eosinophils Percent Manual 0.0 0.9-7.0 % Basophils Percent Manual 0.0 0.2-2.0 % Segmented Neut Absolute Manual 3.69 1.4-6.5 10 3/uL Lymphocytes Absolute Manual 0.36 1.20-3.80 10 3/uL Monocytes Absolute Manual 0.04 0.30-0.80 10 3/uL Eosinophils Absolute Manual 0.00 0.00-0.70 10 3/uL Basophils Abs Manual 0.00 0.00-0.10 1 0 3/uL Performing Lab: see note - [facility] LB PROF 14(COMP METB) Reviewed date:10/23/2024 11:42:38 AM Interpretation: Performing Lab: Notes/Report: [facility] , Sodium 140 136-145 mmol/L Potassium 5.8 3.5-5.1 mmol/L Chloride 105 98-107 mmol/L Carbon Dioxide 22.9 21.0-32.0 mmol/L Anion Gap 17.9 Glucose 459 74-106 mg/dL Blood Urea Nitrogen 30.0 7.0-18.0 mg/dL Creatinine 1.39 0.55-1.02 mg/dL Estimated GFR ( Anneliese 48 >=60 mL/min/1.73m 2 Estimated GFR (Non- Michela 39 >=60 mL/min/1.73m 2 BUN Creatinine Ratio 21.6 Calcium 9.1 8.5-10.1 mg/dL Bilirubin Total 0.5 0.2-1.0 mg/dL Aspartate Amino Transferase 17 15-37 U/L Alanine Aminotransferase 21 14-59 U/L Alkaline Phosphatase 47 46-116 U/L Total Protein 6.6 6.4-8.2 g/dL Albumin Level 2.6 3.4-5.0 g/dL Globulin 4.0 Albumin Globulin Ratio 0.7 Performing Lab: see note ML - [facility] LB CBC AUTO DIFF Reviewed date:10/23/2024 11:42:38 AM Interpretation: Performing Lab: Notes/Report: [facility] , White Blood Count 4.1 4.0-11.0 10 3/uL Red Blood Count 2.74 4.20-5.40 10 6/uL Hemoglobin 8.4 12.0-16.0 g/dL Hematocrit 26.4 36.0-48.0 % Mean Corpuscular Volume 96.4 81.0-99.0 fL Mean Corpuscular Hemoglobin 30.7 26.7-34.0 pg Mean Corpuscular HGB Conc 31.8 29.9-35.2 g/dL Red Cell Distribution Width 14.1 11.0-15.0 % Platelet Count 159 150-450 10 3/uL Mean Platelet Volume 12.8 9.5-13.5 fL Performing Lab: see note - [facility] LB BNP Reviewed date:10/23/2024 11:42:38 AM Interpretation: Performing Lab: Notes/Report: [facility] , NT Pro B Type Natriuretic Pept 1535.0 <=900.0 pg/mL RESULTS CALLED TO Dina Mims RN @BY Elijah Aguilera MT at 0611 Performing Lab: see note - [facility] LB XR chest 1V Reviewed date:10/21/2024 04:18:32 PM Interpretation: Performing Lab: Notes/Report: Source Facility: [place] [address] [place] [address] XRay Report Signed Patient: MARY JANE SCHAEFFER MR#: [id number] : 1970 Acct:[id number] Age/Sex: 54 / F ADM Date: 10/21/24 Loc: ER Attending Dr: Ordering Physician: Maia Reyes M.D. Date of Service: 10/21/24 Procedure(s): XR chest 1V Accession Number(s): [id number] cc: ANN FOURNIER ; Maia Reyes M.D. [place] [address] Patient Name: MARY JANE SCHAEFFER MRN: [id number] date: 1970 Sex: F Assigned Patient Location: ED.MAIN Current Patient Location: ED.MAIN Accession/Order Number: [id number] Exam Date: 10/21/2024 15:41 Report Date: 10/21/2024 15:42 At the request of: MAIA REYES MD Procedure: XR chest 1V XR chest 1V 10/21/2024 3:18 PM SIGNS AND SYMPTOMS: Chest pain, shortness of breath PROTOCOL: Frontal radiograph of the chest COMPARISON: 10/06/2024 FINDINGS: The trachea is midline. The heart and mediastinal structures are within normal limits. Airspace opacity is slightly worse at the left lung base with an accompanying small left-sided pleural effusion. The present in the thoracic spine. The bony thorax is intact. XR/XR chest 1V IMPRESSION: Airspace opacity is slightly worse at the left lung base with an accompanying small left-sided pleural effusion. Impression dictated by: Donald De Souza M.D. 10/21/2024 3:42 PM Dictation Location: [place] [address] Electronically authenticated by: [id number] Y Date: 10/21/2024 15:42 Dictated By: Donald De Souza M.D. Signed By: 10/21/24 154 DD/ 154 TD/TT: Superintendent Horticulture: [place] [address] XRay Report Signed Patient: MARY JANE SCHAEFFER MR#: [id number] : 1970 Acct:[id number] Age/Sex: 54 / F ADM Date: 10/21/24 Loc: ER Attending Dr: Ordering Physician: Maia Reyes M.D. Date of Service: 10/21/24 Procedure(s): XR [address] st 1V Accession Number(s): [id number] cc: NAN FOURNIER ; Maia Reyes M.D. [address] [address] Patient Name: MARY JANE SCHAEFFER MRN: [id number] date: 1970 Sex: F Assigned Patient Location: ED.MAIN Current Patient Location: ED.MAIN Accession/Order Numb er: [id number] Exam Date: 10/21/2024 15:41 Report Date: 10/21/2024 15:42 At the request of: MAIA REYES MD Procedure: XR chest 1V XR chest 1V 3:18 PM SIGNS AND SYMPTOMS: Chest pain, shortness of breath PROTOCOL: Frontal radiograph of the chest COMPARISON: 10/06/2024 FINDINGS: The trachea is midli ne. The heart and mediastinal structures are within normal limits. Airsp lacie opacity is slightly worse at the left lung base with an accompanying smal l left-sided pleural effusion. The present in the thoracic spine. The bony thorax is intact. X R/XR chest 1V IMPRESSION: Airspace opacity is slightly worse at the left lung base with an accompanying small left-sided ple ural effusion. Impression dictated by: Donald De Souza M.D. 10/21/2024 3:42 PM Dictation Location: [place] [address] Electronically authenticated by: [id number] Y Date: 10/21/2024 15:42 Dictated By: Donald De Souza M.D. Signed By: 10/21/24 1545 DD/ 154 TD/TT: Superintendent Horticulture: ECG 12 lead Reviewed date:10/21/2024 04:18:32 PM Interpretation: Performing Lab: Notes/Report: Source Facility: [place] [address] Electrocardiograph Report Signed Patient: MARY JANE SCHAEFFER MR#: [id number] : 1970 Acct:[id number] Age/Sex: 54 / F ADM Date: 10/21/24 Loc: ER Attending Dr: Ordering Physician: Maia Reyes M.D. Date of Service: 10/21/24 Procedure(s): ECG 12 lead Accession Number(s): [id number] cc: [facility] Test Date: 2024-10-21 Pat Name: MARY JANE SCHAEFFER Department: Room: - Gender: Female Radio Electronics Officer: : 1970 Requested By: 1030 Order Number: [id number] Reading MD: REBECA MADRIGAL Measurements Intervals [place] Rate: 87 P: 54 NH: 142 QRS: 75 QRSD: 80 T: 49 QT: 364 QTc: 408 Interpretive Statements 1100 Sinus rhythm 9110 normal ECG Compared to ECG 10/06/2024 13:17:15 Myocardial infarct finding no longer present Right-axis deviation no longer present Electronically Signed On 10-21-2024 15:45:04 EDT by REBECA MADRIGAL Dictated By: Rebeca Madrigal M.D. Signed By: 10/21/24 1545 DD/ 1502 TD/TT: Superintendent Horticulture: [place] [address] Electrocardiograph Report Signed Patient: MARY JANE SCHAEFFER MR#: [id number] : 1970 Acct:[id number] Age/Sex: 54 / F ADM Date: 10/21/24 Loc: ER Attending Dr: Ordering Physician: Maia Reyes M.D. Date of Service: 10/21/24 Procedure(s): ECG 12 lead Accession Number(s): [id number] cc: [place] Test Date: 2024-10-21 Pat Name: MARY JANE SCHAEFFER Department: 95 Room: - Gender: Female Radio Electronics Officer: : 1970 Requested By: 1030 Order Number: [id number] Reading MD: REBECA MADRIGAL Measurements Intervals [place] Rate: 87 P: 54 NH: 142 QRS: 75 QRSD: 80 T: 49 QT: 364 QTc: 408 Interpretive Statements 1100 Sinus rhythm 9110 normal ECG Compared to ECG 10/06/2024 13:17:15 Myocardial infarct finding no longer present Right-axis deviation no longer present Electronically Kianna d On 10-21-2024 15:45:04 EDT by REBECA MADRIGAL Dictated By: Rebeca Madrigal M.D. Signed By: 10/21/24 1545 DD/ 150 TD/TT: Superintendent Horticulture: Blood Culture 2 Reviewed date:10/28/2024 10:37:38 AM Interpretation: Performing Lab: Notes/Report: RIGHT FOREARM - [facility] [place] , Blood Culture 2 See Below For Report Blood Culture 2 NG5D NO GROWTH AT 5 DAYS.^NO GROWTH AT 5 DAYS. Performing Lab: see note ML - [facility] LB Blood Culture 1 Reviewed date:10/28/2024 01:03:07 PM Interpretation: Performing Lab: Notes/Report: RIGHT AC - PEDS [place] , Blood Culture 1 See Below For Report Blood Culture 1 NG5D NO GROWTH AT 5 DAYS.^NO GROWTH AT 5 DAYS. Performing Lab: see note - [facility] LB PROF CHEM 8 (BAS METB) Reviewed date:10/21/2024 04:18:32 PM Interpretation: Performing Lab: Notes/Report: [facility] , Sodium 136 136-145 mmol/L Potassium 5.3 3.5-5.1 mmol/L Chloride 105 98-107 mmol/L Carbon Dioxide 22.5 21.0-32.0 mmol/L Anion Gap 13.8 Glucose 433 74-106 mg/dL Blood Urea Nitrogen 32.0 7.0-18.0 mg/dL Creatinine 1.44 0.55-1.02 mg/dL Estimated GFR ( Anneliese 46 >=60 mL/min/1.73m 2 Estimated GFR (Non- Michela 38 >=60 mL/min/1.73m 2 BUN Creatinine Ratio 22.2 Calcium 9.7 8.5-10.1 mg/dL Performing Lab: see note ML - [facility] LB CBC AUTO DIFF Reviewed date:10/21/2024 04:18:32 PM Interpretation: Performing Lab: Notes/Report: [facility] , White Blood Count 6.4 4.0-11.0 10 3/uL Red Blood Count 2.93 4.20-5.40 10 6/uL Hemoglobin 9.2 12.0-16.0 g/dL Hematocrit 28.5 36.0-48.0 % Mean Corpuscular Volume 97.3 81.0-99.0 fL Mean Corpuscular Hemoglobin 31.4 26.7-34.0 pg Mean Corpuscular HGB Conc 32.3 29.9-35.2 g/dL Red Cell Distribution Width 14.4 11.0-15.0 % Platelet Count 187 150-450 10 3/uL Mean Platelet Volume 12.6 9.5-13.5 fL Neutrophils Percent Auto 77.3 43.0-75.0 % Lymphocytes Percent Auto 13.2 20.5-60.0 % Monocytes Percent Auto 6.3 1.7-12.0 % Eosinophils Percent Auto 2.2 0.9-7.0 % Basophils Percent Auto 0.5 0.2-2.0 % Immature Granulocytes Pct Auto 0.5 0.0-0.5 % Neutrophils Absolute Auto 4.9 1.4-6.5 10 3/uL Lymphocytes Absolute Auto 0.8 1.2-3.8 10 3/uL Monocytes Absolute Auto 0.4 0.3-0.8 10 3/uL Eosinophils Absolute Auto 0.1 0.0-0.7 10 3/uL Basophils Absolute Auto 0.0 0.0-0.1 10 3/uL Immature Granulocytes Abs Auto 0.03 0.00-0.03 10 3/uL Performing Lab: see note ML - [facility] BNP Reviewed date:10/21/2024 04:18:31 PM Interpretation: Performing Lab: Notes/Report: [facility] , NT Pro B Type Natriuretic Pept 1610.0 <=900.0 pg/mL RESULTS CALLED TO DR Kan REYES Performing Lab: see note ML - [facility] Troponin I High Sensitivity Reviewed date:10/07/2024 11:17:12 AM Interpretation: Performing Lab: Notes/Report: [facility] , Troponin I High Sensitivity 254.3 4.0-51.3 pg/mL RESULTS CALLED TO EMMIE ELLIOTT RN CUT-OFF POINTS HAVE BEEN ESTABLISHED BASED ON THE FOURTH UNIVERSAL DEFINITION OF MYOCARDIAL INFARCTION. THE UPPER REFERENCE LIMIT (URL) OF TROPONIN, DEFINED THE 99TH PERCENTILE OF cTnI DISTRIBUTION IN A REFERENCE POPULATION, HAS BEEN CONFIRMED THE DECISION THRESHOLD FOR SC DIAGNOSIS. 99TH PERCENTILE = 51.4 PG/ML NOTE: HIGH-SENSITIVITY TROPONIN ASSAY IS NOT INTENDED TO BE USED IN ISOLATION BUT SHOULD BE INTERPRETED IN CONJUNCTION WITH OTHER DIAGNOSTIC AND CLINICAL INFORMATION. Performing Lab: see note ML - [facility] PROF CHEM 8 (BAS METB) Reviewed date:10/07/2024 11:17:12 AM Interpretation: Performing Lab: Notes/Report: [facility] , Sodium 135 136-145 mmol/L Potassium [...] mg/dL Performing Lab: see note ML - [facility] INFLUENZA A AND B AG Reviewed date:10/07/2024 11:17:12 AM Interpretation: Performing Lab: Notes/Report: [facility] , Influenza Virus A Antigen Negative [...] of the test. Performing Lab: see note - [facility] CBC AUTO DIFF Reviewed date:10/07/2024 11:17:12 AM Interpretation: Performing Lab: Notes/Report: [facility] , White Blood Count 7.7 4.0-11.0 [...] fL Performing Lab: see note ML - [facility] BNP Reviewed date:10/07/2024 11:17:12 AM Interpretation: Performing Lab: Notes/Report: [facility] , NT Pro B Type Natriuretic Pept 5250.0 <=900.0 pg/mL RESULTS CALLED TO GEORGIA Olson Performing Lab: see note - [facility] C-Peptide, Serum Reviewed date:09/23/2024 12:02:34 PM Interpretation: Performing Lab: Notes/Report: [facility] , C-Peptide, Serum 1.7 1.1-4.4 ng/mL C-Peptide reference interval is for fasting patients. Performed at: CB - [facility] [address] [id number] Loan Operations Manager: Godwin Menjivar PhD, Phone: [phone] Performing Lab: see note LC - [facility] LB PTH, Intact Reviewed date:09/23/2024 12:02:34 PM Interpretation: Performing Lab: Notes/Report: [facility] , PTH, Intact 14 15-65 pg/mL Performed at: CB - [facility] [address] [id number] Loan Operations Manager: Godwin Menjivar PhD, Phone: [phone] Performing Lab: see note LC - [facility] LB CT head/brain wo con Reviewed date:09/05/2024 09:45:10 PM Interpretation: Performing Lab: Notes/Report: Source Facility: [place] [address] CT Scan Report Signed Patient: MARY JANE SCHAEFFER MR#: [id number] : 1970 Acct:[id number] Age/Sex: 54 / F ADM Date: 08/31/24 Loc: CT Attending Dr: ANN FOURNIER Ordering Physician: ANN FOURNIER Date of Service: 08/31/24 Procedure(s): CT head/brain wo con Accession Number(s): [id number] cc: ANN FOURNIER [place] [address] Patient Name: MARY JANE SCHAEFFER MRN: [id number] date: 1970 Sex: F Assigned Patient Location: CT Current Patient Location: CT Accession/Order Number: [id number] Exam Date: 08/31/2024 17:39 Report Date: 08/31/2024 [...] IMPRESSION: No acute findings. Impression dictated by: Vickey Jackson M.D.08/31/2024 5:41 PM Dictation Location: [place] [address] Electronically authenticated by: [id number] Y Date: 08/31/2024 17:41 Dictated By: Vickey Jackson D.O. Signed By: 08/31/241743 DD/ 40 TD/TT: Superintendent Horticulture: [place] [address] CT Scan Report Signed Patient: MARY JANE SCHAEFFER MR#: [id number] : 1970 Acct:[id number] Age/Sex: 54 / F ADM Date: 08/31/24 Loc: CT Attending Dr: ANN FOURNIER Ordering Physician: ANN FOURNIER Date of Service: 08/31/24 Procedure(s): CT head/brain wo con Accession Number(s): [id number] cc: ANN FOURNIER [address] [address] Patient Name: MARY JANE SCHAEFFER MRN: [id number] date: 1970 Sex: F Assigned Patient Location: CT Current Patient Location: CT Accession/Order Numb er: [id number] Exam Date: 08/31/2024 17:39 Report Date: 08/31/2024 [...] IMPRESSION: No acute findings. Impression dictated by: Vickey Jackson M.D.08/31/2024 5:41 PM Dictation Location: [place] [address] Electronically authenticated by: [id number] Y Date: 08/31/2024 17:41 Dictated By: Vickey Jackson D.O. Signed By: 08/31/241743 DD/ 40 TD/TT: Superintendent Horticulture: XR shoulder RT min 2V Reviewed date:07/29/2024 03:46:43 PM Interpretation: Performing Lab: Notes/Report: Source Facility: [place] [address] XRay Report Signed Patient: MARY JANE SCHAEFFER MR#: [id number] : 1970 Acct:[id number] Age/Sex: 54 / F ADM Date: 07/29/24 Loc: SRI Attending Dr: ANN FOURNIER Ordering Physician: ANN FOURNIER Date of Service: 07/29/24 Procedure(s): XR shoulder RT min 2V Accession Number(s): [id number] cc: ANN FOURNIER [place] [address] Patient Name: MARY JANE SCHAEFFER MRN: [id number] date: 1970 Sex: F Assigned Patient Location: RAD Current Patient Location: [facility] Accession/Order Number: [id number] Exam Date: 07/29/2024 15:32 Report Date: 07/29/2024 [...] De Souza M.D.07/29/2024 3:33 PM Dictation Location: [place] [address] Electronically authenticated by: [id number] Y Date: 07/29/2024 15:33 Dictated By: Donald De Souza M.D. Signed By: 07/29/24 1536 DD/ 153 TD/TT: Superintendent Horticulture: [place] [address] XRay Report Signed Patient: MARY JANE SCHAEFFER MR#: [id number] : 1970 Acct:[id number] Age/Sex: 54 / F ADM Date: 07/29/24 Loc: [facility] Attending Dr: ANN FOURNIER Ordering Physician: ANN FOURNIER Date of Service: 07/29/24 Procedure(s): XR shoulder RT min 2V Accession Number(s): [id number] cc: ANN FOURNIER [place] [id number] Patient Name: MARY JANE SCHAEFFER MRN: [id number] date: 1970 Sex: F Assigned Patient Location: [facility] Current Patient Location: [facility] Accession/Order Numb er: [id number] Exam Date: 07/29/2024 15:32 Report Date: 07/29/2024 [...] rotato r cuff repair. Impression dictated by: Donald De Souza M.D.07/29/2024 3:33 PM Dictation Location: [place] [address] Electronically authenticated by: [id number] Y Date: 07/29/2024 15:33 Dictated By: Donald De Souza M.D. Signed By: 07/29/24 1536 DD/ 1533 TD/TT: Superintendent Horticulture: CT abdomen pelvis w con Reviewed date:09/23/2024 11:53:25 AM Interpretation: Performing Lab: Notes/Report: Source Facility: [place] [address] CT Scan Report Signed Patient: MARY JANE SCHAEFFER MR#: [id number] : 1970 Acct:[id number] Age/Sex: 54 / F ADM Date: 09/22/24 Loc: LAB Attending Dr: ANN FOURNIER Ordering Physician: ANN FOURNIER Date of Service: 09/22/24 Procedure(s): CT abdomen pelvis w con Accession Number(s): [id number] cc: ANN FOURNIER [place] [address] Patient Name: MARY JANE SCHAEFFER MRN: [id number] date: 1970 Sex: F Assigned Patient Location: LAB Current Patient Location: LAB Accession/Order Number: [id number] Exam Date: 09/22/2024 13:44 Report Date: 09/22/2024 [...] Small fat-containing umbilical hernia. Impression dictated by: Vickey Jackson M.D.09/22/2024 1:50 PM Dictation Location: [place] [address] Electronically authenticated by: [id number] Y Date: 09/22/2024 13:50 Dictated By: Vickey Jackson D.O. Signed By: 09/22/24 1352 DD/ 1350 TD/TT: Superintendent Horticulture: [place] [address] CT Scan Report Signed Patient: MARY JANE SCHAEFFER MR#: [id number] : 1970 Acct:[id number] Age/Sex: 54 / F ADM Date: 09/22/24 Loc: LAB Attending Dr: ANN FOURNIER Ordering Physician: ANN FOURNIER Date of Service: 09/22/24 Procedure(s): CT abd omen pelvis w con Accession Number(s): [id number] cc: ANN FOURNIER [place] [id number] Patient Name: MARY JANE SCHAEFFER MRN: [facility]:[id number] date: 1970 Sex: F Assigned Patient Location: LAB Current Patient Location: LAB Accession/Order Numb er: [id number] Exam Date: 09/22/2024 13:44 Report Date: 09/22/2024 13:50 At the request of: ANN SHANTANU Procedure: CT abdome n pelvis w con [...] Small fat-containing umbilical hernia. Impression dictated by: Vickey Jackson M.D.09/22/2024 1:50 PM Dictation Location: [place] [address] Electronically authenticated by: [id number] Y Date: 09/22/2024 13:50 Dictated By: Vickey Jackson D.O. Signed By: 09/22/24 1352 DD/ 1350 TD/TT: Superintendent Horticulture: XR wrist RT 2V Reviewed date:07/29/2024 03:46:43 PM Interpretation: Performing Lab: Notes/Report: Source Facility: [place] [address] XRay Report Signed Patient: MARY JANE SCHAEFFER MR#: [id number] : 1970 Acct:[id number] Age/Sex: 54 / F ADM Date: 07/29/24 Loc: RAD Attending Dr: ANN FOURNIER Ordering Physician: ANN FOURNIER Date of Service: 07/29/24 Procedure(s): XR wrist RT 2V Accession Number(s): [id number] cc: ANN FOURNIER [place] [id number] Patient Name: MARY JANE SCHAEFFER MRN: [id number] date: 1970 Sex: F Assigned Patient Location: [facility] Current Patient Location: [facility] Accession/Order Number: [id number] Exam Date: 07/29/2024 15:25 Report Date: 07/29/2024 [...] De Souza M.D.07/29/2024 3:30 PM Dictation Location: [place] [address] Electronically authenticated by: [id number] Y Date: 07/29/2024 15:30 Dictated By: Donald De Souza M.D. Signed By: 07/29/24 1533 DD/ 153 TD/TT: Superintendent Horticulture: [place] [address] XRay Report Signed Patient: MARY JANE SCHAEFFER MR#: [id number] : 1970 Acct:[id number] Age/Sex: 54 / F ADM Date: 07/29/24 Loc: RAD Attending Dr: ANN FOURNIER Ordering Physician: ANN FOURNIER Date of Service: 07/29/24 Procedure(s): XR wri st RT 2V Accession Number(s): [id number] cc: ANN FOURNIER [place] [id number] Patient Name: MARY JANE SCHAEFFER MRN: [id number] date: 1970 Sex: F Assigned Patient Location: RAD Current Patient Location: [facility] Accession/Order Numb er: [id number] Exam Date: 07/29/2024 15:25 Report Date: 07/29/2024 [...] De Souza M.D.07/29/2024 3:30 PM Dictation Location: [place] [address] Electronically authenticated by: [id number] Y Date: 07/29/2024 15:30 Dictated By: Donald De Souza M.D. Signed By: 07/29/24 1533 DD/ 1530 TD/TT: Superintendent Horticulture: XR ribs RT 2V Reviewed date:07/29/2024 03:46:43 PM Interpretation: Performing Lab: Notes/Report: Source Facility: [place] [address] XRay Report Signed Patient: MARY JANE SCHAEFFER MR#: [id number] : 1970 Acct:[id number] Age/Sex: 54 / F ADM Date: 07/29/24 Loc: RAD Attending Dr: ANN FOURNIER Ordering Physician: ANN FOURNIER Date of Service: 07/29/24 Procedure(s): XR ribs RT 2V Accession Number(s): [id number] cc: ANN FOURNIER [place] [id number] Patient Name: MARY JANE SCHAEFFER MRN: [id number] date: 1970 Sex: F Assigned Patient Location: RAD Current Patient Location: RAD Accession/Order Number: [id number] Exam Date: 07/29/2024 15:30 Report Date: 07/29/2024 [...] De Souza M.D.07/29/2024 3:32 PM Dictation Location: [place] [address] Electronically authenticated by: [id number] Y Date: 07/29/2024 15:32 Dictated By: Donald De Souza M.D. Signed By: 07/29/24 1535 DD/ 1532 TD/TT: Superintendent Horticulture: [place] [address] XRay Report Signed Patient: MARY JANE SCHAEFFER MR#: [id number] : 1970 Acct:[id number] Age/Sex: 54 / F ADM Date: 07/29/24 Loc: RAD Attending Dr: ANN FOURNIER Ordering Physician: ANN FOURNIER Date of Service: 07/29/24 Procedure(s): XR rib s RT 2V Accession Number(s): [id number] cc: ANN FOURNIER [address] [address] Patient Name: MARY JANE Foy [facility] MRN: [id number] date: 1970 Sex: F Assigned Patient Location: RAD Current Patient Location: RAD Accession/Order Numb er: [id number] Exam Date: 07/29/2024 15:30 Report Date: 07/29/2024 [...] De Souza M.D.07/29/2024 3:32 PM Dictation Location: [place] [address] Electronically authenticated by: [id number] Y Date: 07/29/2024 15:32 Dictated By: Donald De Souza M.D. Signed By: 07/29/24 1535 DD/ 1532 TD/TT: Superintendent Horticulture: CREATININE Reviewed date:11/22/2024 02:19:41 PM Interpretation: Performing Lab: Notes/Report: CREATININE 1.88 0.40-1.00 mg/dL METHOD TRACE ABLE TO IDMS STANDARD EGFR (CKD-EPI) NON-RACE DEPENDENT 31 >=60 ml/min/1.73sq.m Reported eGFR is based on the CKD-EPI 2020 equation that does not use a race coefficient. PERFORMED AT [address] [place] [address] BUN Reviewed date:11/22/2024 02:19:52 PM Interpretation: Performing Lab: Notes/Report: BLOOD UREA NITROGEN 38 5-23 mg/dL PERFORMED AT [address] [place] [address] CREATININE Reviewed date:11/16/2024 12:40:32 PM Interpretation: Performing Lab: Notes/Report: CREATININE 0.99 0.40-1.00 mg/dL METHOD TRACE ABLE TO [facility] STANDARD EGFR (CKD-EPI) NON-RACE DEPENDENT 67 >=60 ml/min/1.73sq.m Reported eGFR is based on the CKD-EPI 2020 equation that does not use a race coefficient. PERFORMED AT [address] [place] [address] BUN Reviewed date:11/16/2024 12:40:32 PM Interpretation: Performing Lab: Notes/Report: BLOOD UREA NITROGEN 29 5-23 mg/dL PERFORMED AT [address] [place] [address] VANCOMYCIN RANDOM Reviewed date:11/12/2024 12:54:41 PM Interpretation: Performing Lab: Notes/Report: [place] , Vancomycin Random 23.4 Performing Lab: see note ML - [facility] LB Reason For Referral Diagnosis 1 Eschar (R23.4) Referral Organization [facility] Referring Provider First Name Ann Referring Provider Last Name Shantanu Referring Provider [facility] icine Referred Provider Manolo Sanchez Referred Provider Specialty Surgery Referral Priority Routine Reason Switching providers- second opinion/ treatment Diagnosis 1 Abdominal abscess (K 65.1) Referral Organization [facility] Referring Provider First Name Ann Referring Provider Last Name Shantanu Referring Provider [facility] icine Referred Provider [place], Wound Car e Referred Provider Specialty Wound Care Referral Priority Routine Reason vertigo Diagnosis 1 Vertigo (R42) Referral Organization [facility] Referring Provider First Name Ann Referring Provider Last Name Shantanu Referring Provider Speciality [facility] icine Referred Provider [facility], Physical Therap y Referred Provider Specialty Physical The rapist Referral Priority Routine Diagnosis 1 Drug allergy, antibi otic (Z88.1) Referral Organization [facility] Referring Provider First Name Ann Referring Provider Last Name Shantanu Referring Provider Speciality Family [facility] linden Referred Provider Laz Rausch Referred Provider Specialty Family Medic ine Referral Priority Routine Medications Medication SIG (Take, Route, Frequency, Duration) Notes Start Date End Date Status Levothyroxine Sodium 175 MCG 1 tablet in the morning on an empty stomach Orally Once a day for 90 days Unknown Lyrica 100 MG 1 capsule Orally Three times a day Unknown Iron 325 (65 Fe) MG 1 tablet Orally daily Unknown Krill Oil Unknown HumuLIN R U-500 (CONCENTRATED) 500 UNIT/ML as directed Subcutaneous per insulin pump - Endocrin Unknown Vitamin C Unknown Invokana 100 MG 1 tablet before the first meal of the day Orally Once a day Unknown Zinc 50 MG 1 tablet Orally Once a day Unknown Fluticasone Propionate 50 MCG/ACT 2 sprays in each nostril Nasally QD Unknown Trulicity 1.5 MG/0.5ML as directed Subcutaneous weekly Unknown Furosemide 20 MG 1 tablet Orally BID Unknown Ventolin HFA 108 (90 Base) MCG/ACT 2 puffs as needed for SOB Inhalation Q4H for 90 days Unknown Fexofenadine HCl 180 MG 1 tablet Orally every evening Unknown traMADol HCl 50 MG 1 tablet as needed Orally BID prn for 7 days 12/23/2023 Unknown Fiber Select Gummies - 4 tablets Orally every evening Unknown Triamcinolone Acetonide 0.1 % 1 application Externally Twice a day Unknown Spiriva Respimat 1.25 MCG/ACT 2 puffs Inhalation QD for 90 days Unknown Symbicort 160-4.5 MCG/ACT 2 puffs Inhalation BID for 90 days Rinse after use (10.2gm?) Rinse after use Unknown Fenofibrate 160 MG TAKE 1 TABLET BY MOUTH DAILY AT BEDTIME for 90 Unknown Cyclobenzaprine HCl 10 MG 1 tablet Orally Once a day for 90 days Unknown Repatha SureClick 140 MG/ML 1 injection Subcutaneous every 2 weeks 09/29/2024 Unknown Entresto 49-51 MG 1 tablet Orally Twice a day Unknown Calcium Unknown Pepcid 20 MG 1 tablet Orally Daily Unknown Cinnamon 500 MG 1 capsule Orally BID Unknown Plavix 75 MG 1 tablet Orally Once a day Unknown Allopurinol 300 MG 1 tablet Orally Daily for 90 days Unknown Oxygen - as directed Unknown amLODIPine Besylate 10 MG 1 tablet Orally Once a day Unknown Pantoprazole Sodium 40 MG 1 tablet Orally BID for 90 days Unknown Nystatin 319515 UNIT/GM 1 application Externally daily Unknown Ondansetron HCl 4 MG 1 tablet Orally every 8 hours Unknown Metoprolol Tartrate 100 MG 1 tablet with food Orally Twice a day for 90 days Unknown Montelukast Sodium 10 MG 1 tablet Orally QD for 90 days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
== END 2025-01-04 14:03 | disposition home or self-care (01) ==
LOC: CARD 14:02
PROVIDERS: PCP Nurse Practitioner Family; Visit Provider Internal Medicine Interventional Cardiology
DX: I31.39 Other pericardial effusion (noninflammatory) (principal)
CPT/HCPCS: 93308

== ENCOUNTER 2025-04-05 13:23 | Outpatient (OUT) | payer MEDICARE, MEDICAID, SELFPAY ==
--- NOTE | 2025-04-05 13:28 | XR_ITS ---
[facility] [place] [id number] Patient Name: MARY JANE SANTOS MRN: [id number] date: 1970 Sex: F Assigned Patient Location: [facility] Current Patient Location: [facility] Accession/Order Number: [id number] Exam Date: 04/05/2025 13:30 Report Date: 04/05/2025 15:48 At the request of: RICHELLE FOURNIER Procedure: XR hip RT 2V w/ pelvis XR hip RT 2V w/ pelvis 04/05/2025 1:52 PM SIGNS AND SYMPTOMS: ^Right Hip Pain PROTOCOL: Frontal radiograph of the pelvis with frontal and frog-leg views of the right hip COMPARISON: 01/08/2021 FINDINGS: There is narrowing of the joint spaces of the hips with mild prominence of the acetabular rims bilaterally. Degenerative changes are noted in the lumbar spine and sacroiliac joints. There is no fracture or dislocation. There is enthesophyte formation along the greater trochanters. Vascular calcifications are present in the pelvis. XR/XR hip RT 2V w/ pelvis IMPRESSION: No fracture or dislocation. Degenerative changes are noted in the hips bilaterally. This is slightly worse on the right when compared to the prior exam. Impression dictated by: Donald De Souza M.D. 04/05/2025 3:48 PM Dictation Location: [place] [id number] Electronically authenticated by: [id number] Y Date: 04/05/2025 15:48
--- NOTE | 2025-04-05 13:28 | XR_ITS ---
[facility] [place] [id number] Patient Name: MARY JANE SANTOS MRN: [id number] date: 1970 Sex: F Assigned Patient Location: [facility] Current Patient Location: [facility] Accession/Order Number: [id number] Exam Date: 04/05/2025 13:30 Report Date: 04/05/2025 15:47 At the request of: RICHELLE FOURNIER Procedure: XR lumbar spine 2-3V XR lumbar spine 2-3V 04/05/2025 1:52 PM SIGNS AND SYMPTOMS: Chronic low back pain with right hip pain laterally PROTOCOLS: 2 views of the lumbar spine COMPARISON: None FINDINGS: The alignment, development and bony structures are normal. There is no fracture or destructive lesion. There is moderate severe disc height loss at L4-5 with moderate disc height loss at L5-S1. Mild disc height loss is noted otherwise. Facet degenerative changes are present, greatest in the lower lumbar spine. Degenerative changes are noted in the sacroiliac joints. There is evidence of prior cholecystectomy. XR/XR lumbar spine 2-3V IMPRESSION: No fracture or subluxation. Disc and facet degenerative changes are noted, greatest at L4-5 and L5-S1, as above. Impression dictated by: Donald De Souza M.D. 04/05/2025 3:47 PM Dictation Location: [place] [address] Electronically authenticated by: [id number] Y Date: 04/05/2025 15:47
--- OUTSIDE RECORDS SUMMARY | 2025-04-05 13:41 | XMS_ITS | CCD ---
Author Organization [facility] Care Team Providers Care Gallery Or Museum Guide Name Role Phone ANTONIO BRIAN Unavailable Unavailable JARAD NULL Unavailable Unavailab le HOY, KAMRAN Primary Care Unavailable HOY, KAMRAN Referring Unavailable ELTAHAWY, EHAB A Admitting Unavailable ELTAHAWY, EHAB A Attending Unavailable HOY, KAMRAN Primary Care Unavailable HOY, KAMRAN Referring Unavailable ELTAHAWY, EHAB A Admitting Unavailable ELTAHAWY, EHAB A Attending Unavailable Roberta, Anila Unavailable Arthur Moy Unavailable MD Arthur Moy Attending Provider JOSEFINA, ANN Primary Care Unavailable ROBERTA, ANILA Admitting Unavailable ROBERTA, ANILA Attending Unavailable ROBERTA, ANILA Consulting Unavailable JOSEFINA, ANN Primary Care Unavailable JOSEFINA, ANN Admitting Unavailable JOSEFINA, ANN Attending Unavailable JOSEFINA, ANN Consulting Unavailable Zieber, Afia Consulting Unavailable JOSEFINA, ANN Primary Care Unavailable JOSEFINA, ANN Admitting Unavailable JOSEFINA, ANN Attending Unavailable JOSEFINA, ANN Consulting Unavailable ROBERTA, ANILA Admitting Unavailable ROBERTA, ANILA Attending Unavailable ROBERTA, ANILA Consulting Unavailable JOSEFINA, ANN Primary Care Unavailable SAMSA ., DENYS Admitting Unavailable SAMSA ., DENYS Attending Unavailable Davider, Afia Consulting Unavailable JOSEFINA, ANN Primary Care Unavailable SAMSA ., DENYS Consulting Unavailable AMILCAR, DR AZEEM Whyte Admitting Unavailable AMILCAR, DR AZEEM Whyte Attending Unavailable DR AZEEM RIGGINS Consulting Unavailable JOSEFINA, ANN Primary Care Unavailable SEUN, AFIA Consulting Unavailable JOSEFINA, ANN Primary Care Unavailable PAY ., DR HURD Admitting Unavailable PAY ., DR HURD Attending Unavailable PAY ., DR HURD Consulting Unavailable JOSEFINA, ANN Primary Care Unavailable JOSEFINA, ANN Admitting Unavailable JOSEFINA, ANN Attending Unavailable JOSEFINA, ANN Consulting Unavailable Misha Christian Unavailable CAROLYN Fournier Ann Tash Primary Care Provider MD Anila Granados Attending Provider RENEE DUBOSE Attending Unavailable JARAD NULL Referring Unavailable JARAD NULL Primary Care Unavailable JOSEFINA, ANN S Referring Unavailable JOSEFINA, ANN S Primary Care Unavailable CAROLYN Fournier Ann Tash Primary Care Provider DO Antonio Boo Attending Provider CAROLYN Fournier Ann Tash Primary Care Provider MD Arun Riggins Emergency Provider LUBNA Early Emergency Provider MD Audra Wheat Admit Provider MD Audra Wheat Attending Provider Sen WALKER, Kamran Calderon Primary Care Provider MD Troy Moya Other Provider MD Antonio Jenkins Other Provider MD Billy Nickerson Attending Provider [phone] CAROLYN Fournier Ann Tash Primary Care Provider [phone] MD Arun Riggins Emergency Provider LUBNA Early Emergency Provider MD Audra Wheat Admit Provider MD Troy Moya Other Provider MD Antonio Jenkins Other Provider MD Billy Nickerson Attending Provider MD Troy Moya Attending Provider DO Mc Roque Emergency Provider [phone]-MEDICAL PSYCHOTHERAPIST, Ann S Primary Care Provider Josefina LABORER ROAD-MEDICAL PSYCHOTHERAPIST, Ann S Primary Care Provider Angelia Coreas Unavailable Josefina TRUCKING SUPERVISOR-C, Ann Tash Primary Care Provider [phone] Troy Moya MD Attending Provider Nneka HO-Leo, Jorge Murphy Emergency Provider [phone] Josefina TRUCKING SUPERVISOR-C, Ann Tash Primary Care Provider [phone] Troy Moya MD Attending Provider Munir Morelos DO Emergency Provider Troy Moya MD Attending Provider Kamran Chatterjee MD Attending Provider Josefina TRUCKING SUPERVISOR-C, Ann Tash Primary Care Provider Troy Moya MD Attending Provider [phone] JAYLEEN NICOLE Attending Unavailable JOSEFINA, ANN S Referring Unavailable JOSEFINA, ANN S Primary Care Unavailable BONNIE, JAYLEEN P Referring Unavailable JOSEFINA, ANN S Primary Care Unavailable JAYLEEN NICOLE Attending Unavailable JOSEFINA, ANN S Referring Unavailable JOSEFINA, ANN S Primary Care Unavailable BONNIEJAYLEEN NICHOLSON P Attending Unavailable JOSEFINA, ANN S Referring Unavailable JOSEFINA, ANN S Primary Care Unavailable BONNIEJAYLEEN P Attending Unavailable JOSEFINA, NAN S Referring Unavailable JOSEFINA, ANN S Primary Care Unavailable JOSEFINA, ANN S Primary Care Unavailable ANTONIO PARRA Attending UnavailGHANSHYAM Howe Admitting Unavailable ONLY), IP WOUND CARE SERVICES (INPATIENT Consult ing Unavailable BALAJI AMAYA Consulting Unavailable DELONTE COLINDRES Consulting Unavailable [facility] Consulting Unavailable GERMAINE FREEMAN Attending Unavailable JOSEFINA, ANN S Primary Care Unavailable BONNIEJAYLEEN P Attending Unavailable JOSEFINA, ANN S Referring Unavailable JOSEFINA, ANN S Primary Care Unavailable JOSEFINA, ANN S Primary Care Unavailable KEV JACKSON Attending Unavailable RENEE ART Attending Unavailable JOSEFINA, ANN S Referring Unavailable JOSEFINA, ANN S Primary Care Unavailable Kamran Chatterjee MD Primary Care Provider Angelia Coreas Unavailable Josefina QUIROZ-C, Ann Bianchi Primary Care Provider Anila Granados MD Attending Provider NON STAFF Primary Care Provider UnavailYECENIA Alegria Referring Unavailable MAIA REYES Referring Unavailable JOSE LUIS DACOSTA Admitting Unavailable RAVINDER CHAPMAN Attending Unavailable REBECA VALADEZ Attending Unavailable REBECA VALADEZ Attending Unavailable BENSON CHAPMANI Referring Unavailable YECENIA BUCKLEY Referring Unavailable Leticia Fine APRN Attending Provider Josefina QUIROZ-C, Ann Bianchi Primary Care Provider [phone] Troy Moya MD Attending Provider Jorge Early PA-C Emergency Provider [phone] Antonio Newton DO Admit Provider Antonio Newton DO Attending Provider Audra Wheat MD Other Provider Antonio Jenkins MD Attending Provider [phone] Antonio Jenkins MD Other Provider Arun Riggins Admitting Unavailable Arun Riggins Attending Unavailable Josefina, Ann Tash Primary Care Unavailable Josefina, Ann Tash Primary Care Unavailable Munir Morelos Admitting UnavailMunir Milligan Attending Unavailabl e Billy Nickerson Attending Unavailab Troy Aguirre Consulting Unavailable Josefina, Ann Tash Primary Care Unavailable Audra Wheat Admitting Unavailable Antonio Jenkins Consulting Unavailable Antonio Newton Admitting Unavailable Josefina, Ann Tash Primary Care Unavailable Antonio Jenkins Consulting Unavailable Audra Wheat Attending Unavailable Josefina, Ann Tash Primary Care Unavailable Jorge Eraly Admitting Unavailable Jorge Early Attending Unavailable Mc Roque Admitting Unavailable Mc Roque Attending Unavailable Josefina, Ann Tash Primary Care Unavailable Kamran Chatterjee Admitting Unavailable Kamran Chatterjee Attending Unavailable Kamran Chatterjee Admitting Unavailable Kamran Chatterjee Attending Unavailable Troy Moya Admitting Unavailable Troy Moya Attending Unavailable Ann Fournier Primary Care Unavailable Troy Moya Admitting Unavailable Troy Moya Attending Unavailable Ann Fournier Primary Care Unavailable Anila Granados MD Attending Provider Troy Moya MD Attending Provider [phone] Josefina TRUCKING SUPERVISOR-C, Ann Bianchi Primary Care Provider Kamran Chatterjee MD Primary Care Provider Angelia Coreas Unavailable ANGELIA WORLEY Attending Unavailable BENITO ROMERO Attending Unavailable MARGARITO MOON Attending Unavailable MARGARITO MOON Referring Unavailable BENITO ROMERO Attending Unavailable JEANNA OLMEDO Attending Unavailable MARGARITO MOON Attending Unavailable BENITO ROMERO Attending Unavailable JEANNA OLMEDO Attending Unavailable BENITO ROMERO Attending Unavailable MARGARITO MOON Attending Unavailable Allergies Allergy ClassificationReported Allergen(s)Allergy TypeDate of OnsetReaction(s) FacilityAcetaminophen / oxyCODONE (1 source)Acetaminophen / oxyCODONEDrug Jbsonwq39-48-3096Erj [facility] RepositoryAspirin (1 source)AspirinDrug Hsrqwfq43-14-4375Bqx [facility] RepositoryCephalosporins (antibiotic) (3 sources)Cephalexin; Translations: [cephalexin]Drug Ffciryo96-55-7521Vrf [facility] RepositoryMacrolides (antibiotic) (1 source)ClarithromycinDrug Xedhlzu41-89-5222Rfz [facility] RepositoryPenicillins (antibiotic) (1 source)PenicillinDrug Ddtdbsy03-78-3038Jsf [facility] RepositoryQuinolones (antibiotic) (2 sources)moxifloxacin; Translations: [Cipro]Drug Pcsvhxy18-58-5303Ext [facility] RepositorySulfamethoxazole / Trimethoprim (1 source)Sulfamethoxazole / TrimethoprimDrug Jywbzhk11-21-4157Wmz [facility] RepositoryUnclassified (20 sources)Adhesive agent; Translations: [ADHESIVE]Drug allergy (disorder) 33-70-6958Lflalrj, RashThe [facility] Repository (20 sources)Acetaminophen / oxyCODONEDrug Icpielq19-16-4410TnkhyxneNarzo Coast Contur Other (20 sources)Aspirin; Translations: [ASPIRIN]Drug Faoajvx18-04-8124Jdapovks [facility] Repository (10 sources)cefprozil; Translations: [Cefzil]Drug Misqitg05-41-8423QdykyarZreFulton County Health Center Repository (20 sources)Cephalexin; Translations: [CEPHALEXIN]Drug Gveixxt41-51-7859Fctfc [facility] Repository (20 sources)Cephalosporins (Antibiotic)Propensity to adverse viemfuylu84-78-4410 [facility] (20 sources)Ciprofloxacin; Translations: [ciprofloxacin]Drug Vdgnkvo32-85-1979 Other, HivesProMedica Repository (20 sources)moxifloxacin; Translations: [MOXIFLOXACIN]Drug Ntjhrjx96-48-9099 Hives, UnknownProMedica Repository (20 sources)oxyCODONEDrug Cjcggnh86-67-8467loazreEffiarutjUniversity Hospitals [facility] (20 sources)penicillAMINEDrug Sasjovj16-18-4186muhuwcqwoixBzxszlonfBellevue Hospital (20 sources)Penicillins; Translations: [PENICILLINS]Propensity to adverse opoliodqa22-80-2664Zvgdvpp, AnaphylaxisProMedica Repository (20 sources)Soy protein; Translations: [soy]Propensity to adverse reactions 28-61-6549ilywoemmchwIrxUniversity Hospitals Health System Repository (20 sources)Sulfamethoxazole; Translations: [SULFAMETHOXAZOLE]Drug Allergy 54-65-0641Plfrezbyhhc, SwellingProMedica Repository (20 sources)Sulfamethoxazole / TrimethoprimDrug Gkajljm01-85-4707xaxncdcxlar [facility] Other (20 sources)Sulfanilamide; Translations: [SULFANILAMIDE]Drug Dzyrdfl03-77-8187 AnaphylaxisProMedica Repository (20 sources)Trimethoprim; Translations: [TRIMETHOPRIM]Drug Uhknhec13-25-8399 AnaphylaxisProMedica Repository (20 sources)Foam TapePropensity to adverse atnywcruq60-01-9970Tuvymik, Rash [facility] (20 sources)BCisePropensity to adverse ohczrozen89-47-1627wabwgoc upsetAkron Children'S Hospital (9 sources)AvaloxPropensity to adverse reactionsUnknoHawthorn Children's Psychiatric Hospital [employer] Other (1 source)Acetaminophen / oxyCODONEDrug Xcxjiym34-37-3524Qda [facility] Repository (1 source)AspirinDrug Xctkycj97-97-9266Iyg [facility] Repository (1 source)CephalexinDrug Smnuecv85-45-9075Nhs [facility] Repository (1 source)CiprofloxacinDrug Wkrktuk53-93-2230Moh [facility] Repository (1 source)ClarithromycinDrug Nkenkne82-80-3521Bnu [facility] Repository (1 source)DesonideDrug Yjkxsuc71-47-0366Zvc [facility] Repository (2 sources)egg extract; Translations: [EGG]Drug Knciboh09-43-5887Ykx [facility] Repository (1 source)moxifloxacinDrug Lcmjuog02-06-0804Enq [facility] Repository (1 source)PenicillinsDrug allergy (disorder)75-01-8466Mcu [facility] Repository (1 source)Sulfamethoxazole / TrimethoprimDrug Djqsczt05-84-7480Xzk [facility] Repository (1 source)tomato allergenic extractDrug Siejfii56-95-2287XkrAdena Health System Repository (1 source)Misc-ENV; Translations: [Misc-ENV]Propensity to adverse reactions (disorder)00-79-0316Rht [facility] Repository (1 source)Misc-Other; Translations: [Misc-Other]Propensity to adverse reactions (disorder)83-54-2944EmkAdena Health System Repository (1 source)Misc-Food; Translations: [Misc-Food]Food allergy (disorder)09-07-2014 [facility] Repository (20 sources)Azithromycin; Translations: [AZITHROMYCIN]Drug Pfbiyqh92-97-1807 rash, HivesProMedica Repository (20 sources)Acetaminophen / oxyCODONE; Translations: [OXYCODONE-ACETAMINOPHEN] Drug Ouimmdo17-94-8125Gzakh, GI intoleranceProMedica Repository (20 sources)cefprozil; Translations: [CEFPROZIL]Drug Whwogqh28-12-0991Innjc [facility] Repository (3 sources)Sulfamethoxazole / Trimethoprim; Translations: [SULFAMETHOXAZOLE-TRIMETHOPRIM]Drug Hjdfjrc99-97-8170OacDpvkam Repository (15 sources)AcetaminophenDrug Pnpiwqv64-15-4704Wvowuho Reaction, Vomiting [facility] (20 sources)Aluminum aspirinDrug Jegnxim09-84-2730AvqzPQJL Healthcare (20 sources)Cephalosporins (Antibiotic)Drug Pguzylw13-79-5684SmwulVFXS Healthcare (20 sources)PenicillinsDrug Wuuoxrd00-07-8780Agpdlpy, AnaphylaxisLee's Summit Hospital (20 sources)Wound Dressing AdhesiveDrug Uowmleu75-51-8072QecnYRHG Healthcare (13 sources)PenicillinsPropensity to adverse reactions to nbnq90-56-9348 AnaphylaxisAultman Hospital System (8 sources)Adhesive agentPropensity to adverse reactions to gdis55-88-9853Nocg [facility] (9 sources)Doxycycline; Translations: [DOXYCYCLINE]Drug Ptmlkja82-99-1273kbeyeMercy Health Tiffin Hospital (1 source)atorvastatin; Translations: [ATORVASTATIN]Drug Ulttybe74-26-8961 [facility] Repository (1 source)Simvastatin; Translations: [SIMVASTATIN]Drug Nhxpicr95-34-9721 [facility] Repository (1 source)OTHER; Translations: [OTHER]Propensity to adverse reactions (disorder) 46-47-5327LiczzeemnfOhioHealth [facility] Repository Medications Current Medications MedicationDrug Class(es)DatesSig (Normalized)Sig (Original)acetaminophen 325 mg oral tablet (1 source)Start: 41-85-1808twqp 1 tablet by mouth every four hours as needed for pain and fever and mlfxardg413 mg, oral, Every 4 hours PRN, mild pain - pain scale 1-3, temperature greater than 38 C, headaches, Temperature greater than 38.3 C, Starting on Fri02/20/24 at 1854, [Warning: Total Acetaminophen not to exceed more than 4 grams (4000 mg) in 24 hours]acetaminophen 300 mg / codeine phosphate 30 mg oral tablet (5 sources)Opioid AgonistStart: 28-27-6174idvr 1 tablet by mouth every four hours as needed for painacetaminophen-codeine (TYLENOL #3) 300-30 mg per tablet Take 1 tablet by mouth every 4 (four) hoursas needed for pain. 01/12/2024 Active [id number] 200 actuat albuterol 0.09 mg/actuat metered dose inhaler (20 sources)beta2-Adrenergic AgonistStart: 70-03-6494Wykul: 48-60-7618otlp 1 puff(s) by inhalation every four hours as needed for wheezingStart: 10-09-2023 take 2 puff(s) by inhalation every four hours as neededAlbuterol Sulfate (Ventolin Hfa) 90 mcg/actuation HFA aerosol inhaler Active 2 PUFF INHALATION Every 4 hours October 09, 2023 12:00am FreeTextSi puffs as needed Inhalation every 4 hrs; Note: Source Status: Taking; Provider: Roberta High ( )take 2 puff(s) by inhalation in the morning, then take 2 puff(s) by inhalation in the evening, thentake 2 puff(s) by inhalation at bedtimealbuterol HFA (Ventolin HFA) 90 mcg/act inhaler Inhale 2 puffs in the morning and 2 puffs in the evening and 2 puffs before bedtime. Activetake 2 puff(s) by inhalation every four hours as neededalbuterol (PROVENTIL HFA;VENTOLIN HFA) 90 mcg/actuation inhaler Inhale 2 puffs every 4 (four) hoursas needed for shortness of breath. ActiveAlbuterol Sulfate (2.5 MG/3ML) 0.083% Inhalation for 30 Days Activetake 2 puff(s) by inhalation every four hours as neededVentolin HFA 108 (90 Base) MCG/ACT 2 puffs as needed Inhalation every 4 hrs Activealbuterol 0.833 mg/ml / ipratropium bromide 0.167 mg/ml inhalation solution (1 source)Anticholinergic, beta2-Adrenergic AgonistStart: 94-90-0883zotg 3 mL by inhalation every four hours as needed for wheezing3 mL, nebulization, Every 4 hours PRN, wheezing, Starting on Danni 02/26/24 at 0327, Implement INPATIENT/ED Bronchodilator Clinical Practice Guidelines? Yes, Document: \phsi.[facility].org\epic\EPIC_Reference\Orders\Respiratory Care Guidelines\CPG Bronchodilator 2020.pdfallopurinol 300 mg oral tablet (20 sources)Xanthine Oxidase InhibitorStart: 10-09-2023 End: 26-58-8469ppiw 1 tablet by mouth once dailyAllopurinol 300 mg tablet Active 300 MG PO Daily December 02, 2024 4:03pm Complies with drug therapyamLODIPine 10 mg oral tablet (7 sources)Dihydropyridine Calcium Channel BlockerStart: 88-37-5709gwbg 1 tablet by mouth once dailyStart: 12-02-2024 End: 58-11-5579ywuu 1 tablet by mouth once dailyAmlodipine 5 mg tablet Discontinued 5 MG PO Daily December 02, 2024 12:00am February 21, 2025 4:10pm ascorbic acid 250 mg oral tablet (20 sources)Vitamin CStart: 93-42-4828gzsg 1 tablet by mouth once dailyascorbic acid (Vitamin C) 250 MG chewable tablet Chew 250 mg Daily Activebenzonatate 100 mg oral capsule (1 source)Non-narcotic AntitussiveStart: 99-80-6776ukpk 100 mg by mouth three times daily as needed for sfppe712 mg, oral, 3 times daily PRN, cough, Starting on [facility] 02/26/24 at 2104, Do not crush, chew or dissolve.biotin 10 mg oral tablet (20 sources)Start: 10-09-2023 End: 42-68-4760okja 1 tablet by mouth once dailyBiotin 10 mg tablet Active 10 MG PO Daily December 02, 2024 4:03pm Complies with drug therapytake 1 capsule by mouth once dailybiotin 10 MG capsule Take 10 mg by mouth Daily Activebiotin 10,000 mcg capsule Take by mouth. Activetake 1 tablet by mouth once dailyBiotin 10 MG 1 tablet Orally Once a day Dnbwwp360 actuat budesonide 0.16 mg/actuat / formoterol fumarate 0.0045 mg/actuat metered dose inhaler (20 sources)Corticosteroid, beta2-Adrenergic AgonistStart: 80-60-0344kvpq 1 puff(s) by inhalation twice dailyStart: 01-19-9991rfid 2 puff(s) by inhalation twice dailyBudesonide-Formoterol (Symbicort) 160-4.5 mcg/actuation HFA aerosol inhaler Active 2 PUFF INHALATION Twice daily October 09, 2023 12:00am FreeTextSi puffs Inhalation Twice a day; Note: Source Status: Taking; Provider: Roberta High ( )Start: 16-18-5030krxp 2 puff(s) by inhalation in the morningSYMBICORT 160-4.5 mcg/actuation inhaler Indications: bronchospasm prevention with COPD Inhale 2 puffs in the morning and 2 puffs before bedtime. Indications: bronchospasm prevention with COPD. 10/06/2017 ActiveStart: 57-10-1918NZMMRZPNS 160-4.5 mcg/actuation inhaler 10/06/2017 Activebudesonide- formoterol (Symbicort) 160-4.5 MCG/ACT inhaler Inhale 2 puffs every 12 (twelve) hours Activetake 2 puff(s) by inhalation twice dailySymbicort 160-4.5 MCG/ACT 2 puffs Inhalation Twice a day Activecalcium carbonate 500 mg oral tablet (20 sources)calcium carbonate (Os-Vani) 1250 (500 Ca) MG tablet Take 1,250 mg by mouth every 12 (twelve) hours Activecalcium polycarbophil 625 mg oral tablet (20 sources)take 2 tablets by mouth every six hoursCalcium Polycarbophil (fiber) 625 MG tablet Take 2 tablets by mouth every 6 (six) hours ActiveCholest Off 450 MG (9 sources)take 450 mg by mouth twice dailyCholest Off 450 MG Orally TWICE A DAY ActiveCholest Off 450 MG Orally ActiveCinnamon Preparation (9 sources)Non-Standardized Food Allergenic Extracttake 1000 mg by mouth twice dailyCinnamon 1000 MG as directed Orally TWICE A DAY ActiveCinnamon 1000 MG as directed Orally Activeclopidogrel 75 mg oral tablet (20 sources)P2Y12 Platelet InhibitorStart: 35-52-1128ylbl 1 tablet by mouth once dailyContinuous Glucose Sensor (FreeStyle Lisbeth 2 Sensor) misc (20 sources)Start: 31-94-7965Orszfxsjwj Glucose Sensor (FreeStyle Lisbeth 2 Sensor) misc Indications: Type 2 diabetes mellitus without complication, with long-term current use of insulin (HCC) CHANGE EVERY 14 DAYS. 6 each 1 10/01/2024 ActiveStart: 21-94-8794Eiglchnsbu Glucose Sensor (FreeStyle Lisbeth 2 Sensor) misc Indications: Type 2 diabetes mellitus without complication, with long-term current use of insulin CHANGE EVERY 14 DAYS. 6 each 1 08/02/2024 ActiveStart: 25-95-6321Briodixcoo Glucose Sensor (FreeStyle Lisbeth 2 Sensor) [facility] Indications: Type 2 diabetes mellitus without complication, with long-term current use of insulin (CMS/HCC) CHANGE EVERY 14 DAYS. 6 each 1 08/02/2024 ActiveStart: 16-06-2859Hgdpgtxlfi Glucose Sensor (FreeStyle Lisbeth 2 Sensor) [facility] 1 each every 14 (fourteen) days 04/11/2024 Activecyclobenzaprine hydrochloride 10 mg oral tablet (20 sources)Muscle RelaxantStart: 11-03-2017 End: 29-90-3131xegc 1 tablet by mouth once daily at bedtimeCyclobenzaprine 10 mg tablet Active 10 MG PO Daily at bedtime October 09, 2023 12:00am Complies with drug therapydextromethorphan hydrobromide 30 mg / pyrilamine maleate 30 mg oral tablet (20 sources)Uncompetitive Y-xgiqur-E-aspartate Receptor Antagonist, Sigma-1 AgonistStart: 21-27-5933sizr 1 tablet by mouth once dailyCapron DMT 30-30 MG tablet Take 30 mg by mouth Daily 07/25/2022 Activediclofenac sodium 75 mg delayed release oral tablet (20 sources)Nonsteroidal Anti-inflammatory DrugStart: 02-54-7908udzm 1 tablet by mouth in the morningdiclofenac (Voltaren) 75 MG EC tablet Take 75 mg by mouth in the morning and 75 mg before bedtime. 04/12/2022 Activedocusate sodium 250 mg oral capsule (20 sources)Start: 84-05-8709ojjf 1 capsule by mouth every twenty-four hours as neededDocusate Sodium (DSS) 250 MG capsule Take 1 capsule by mouth Daily as needed 10/09/2023 Activetake 1 capsule by mouth every twenty-four hoursStool Softener 250 MG 1 capsule as needed Orally Once a day Activetake 3 capsules by mouth every twenty-four hoursStool Softener 250 MG 3 capsule as needed Orally Once a day Activedocusate sodium 50 mg / sennosides, jail 8.6 mg oral tablet (1 source)Start: 71-88-9209wdur 1 tablet by mouth every twelve hours as needed for constipation1 tablet, oral, Every 12 hours PRN, constipation, Starting on Fri02/20/24 at 1854doxepin hydrochloride 10 mg oral capsule (3 sources)Tricyclic AntidepressantStart: 80-56-4175clct 1-2 capsules by mouth at bedtimeDulaglutide (13 sources)GLP-1 Receptor AgonistStart: 14-86-4341Ztztr: 13-19-3057Sbnysatzset (Trulicity) 4.5 mg/0.5 mL pen injector Active 4.5 MG SUBCUT every week October 09, 2023 12:00am Complies with drug therapyinject 3 mg by subcutaneous injection every weekTrulicity 4.5 MG/0.5ML 3mg Subcutaneous weekly for 84 days Active Dulaglutide (Trulicity) 4.5 mg/0.5 mL pen injector (10 sources)Start: 13-62-5722Swvogjwstsl (Trulicity) 4.5 mg/0.5 mL pen injector Active 4.5 MG SUBCUT every week October 08, 2023 11:00pmStart: 10-09-2023 Dulaglutide (Trulicity) 4.5 mg/0.5 mL pen injector Active 4.5 MG SUBCUT every week October 09, 2023 12:00amStart: 44-63-8398lwvhkj 3 mg by subcutaneous injection every weekDulaglutide (Trulicity) 4.5 mg/0.5 mL pen injector Active MG SUBCUT October 09, 2023 12:00am FreeTextSimg Subcutaneous weekly; Note: Source Status: Taking; Refills: 3; Qty: 3 Box; Provider: Ramon Gruber KDulaglutide 4.5 MG/0.5ML solution auto-injector (20 sources)Start: 03-29-2025 End: 41-05-9397wjukge 1 dose by subcutaneous injection every weekDulaglutide 4.5 MG/0.5ML solution auto-injector Indications: Type 2 diabetes mellitus without complication, with long-term current use of insulin (HCC) Inject 1 Dose under the skin 1 (one) time per week 2 mL 5 03/29/2025 06/27/2025 ActiveStart: 09-29-2024 End: 78-05-5231wwoxio 1 dose by subcutaneous injection every weekDulaglutide 4.5 MG/0.5ML solution auto-injector Indications: Type 2 diabetes mellitus without complication, with long-term current use of insulin (HCC) Inject 1 Dose under the skin 1 (one) time per week 2 mL 5 09/29/2024 03/29/2025 Discontinued (Reorder)Start: 60-31-6123enxvsn 1 dose by subcutaneous injection every week Dulaglutide 4.5 MG/0.5ML solution auto-injector Indications: Type 2 diabetes mellitus without complication, with long-term current use of insulin (HCC) Inject 1 Dose under the skin 1 (one) time per week 2 mL 5 09/29/2024 Active Start: 09-29-2024 End: 04-66-6589zjsspj 1 dose by subcutaneous injection every weekDulaglutide 4.5 MG/0.5ML solution auto-injector Indications: Type 2 diabetes mellitus without complication, with long-term current use of insulin (HCC) Inject 1 Dose under the skin 1 (one) time per week 2 mL 5 09/29/2024 12/28/2024 ActiveStart: 09-28-2024 End: 47-30-3572qvdbvr 1 dose by subcutaneous injection every weekDulaglutide 4.5 MG/0.5ML solution auto-injector Indications: Type 2 diabetes mellitus without complication, with long-term current use of insulin Inject 1 Dose under the skin 1 (one) time per week 6 mL 1 09/28/2024 12/27/2024 ActiveStart: 10-09-2023 End: 19-26-2883kexiri 1 dose by subcutaneous injection every weekDulaglutide 4.5 MG/0.5ML solution auto-injector Inject 1 Dose under the skin 1 (one) time per week 10/09/2023 09/28/2024 Discontinued (Reorder)Start: 76-28-8736nmtyli 1 dose by subcutaneous injection every weekDulaglutide 4.5 MG/0.5ML solution auto- injector Inject 1 Dose under the skin 1 (one) time per week 10/09/2023 Active2 ml dupilumab 150 mg/ml auto-injector (20 sources)Interleukin-4 Receptor alpha AntagonistStart: 85-92-2957Cymcaftxq (Dupixent) 300 MG/2ML solution auto-injector 10/09/2023 ActiveStart: 10-09-2023 Dupilumab Active MG SUBCUT October 09, 2023 12:00am FreeTextSig: as directed Subcutaneous EVERY 14 DAYS; Note: Source Status: Taking; Provider: Dr Rich Dupixent 300 MG/2ML as directed Subcutaneous EVERY 14 DAYS Active1 ml evolocumab 140 mg/ml auto-injector (4 sources)PCSK9 InhibitorStart: 73-97-5115fjsompuuag 20 mg oral tablet (20 sources)Histamine-2 Receptor AntagonistStart: 84-93-9028gymc 1 tablet by mouth at bedtimetake 1 tablet by mouth every twenty-four hoursPepcid 20 MG 1 tablet Orally Once a day Activefenofibrate 160 mg oral tablet (20 sources)Peroxisome Proliferator Receptor alpha AgonistStart: 57-17-9236qrxc 1 tablet by mouth at bedtimeFenofibrate 160 mg tablet Active 160 MG PO Bedtime October 09, 2023 12:00am Complies with drug therapyfexofenadine hydrochloride 180 mg oral tablet (20 sources)Histamine-1 Receptor AntagonistStart: 10-09-2023 End: 44-91-9338voon 1 tablet by mouth at bedtimeFexofenadine 180 mg tablet Active 180 MG PO Bedtime December 02, 2024 4:05pm Complies with drug therapyFiber (Guar Gum) 15 Grams (9 sources)take 15 g by mouth once dailyFiber (Guar Gum) 15 Grams as directed Orally once a day Activefluconazole 200 mg oral tablet (6 sources)Azole AntifungalStart: 04-67-1519sxgv 1 tablet by mouth once daily Start: 02-28-2024 End: 66-00-6397kpvq 1 tablet by mouth in the morningfluconazole (DIFLUCAN) 200 mg tablet Take 1 tablet (200 mg total) by mouth in the morning for 5 days. 5 tablet 02/28/2024 03/04/2024 ActiveStart: 04-62-3570feub 200 mg by mouth once mg, oral, Daily, First dose on Fri02/24/24 at 1530, HAZARDOUS - Handle with care. Look-alike/sound-alike medication - verify indication for use., Indication: Intra-abdominal infectionStart: 02-06-2024 End: 75-20-5236pysi 1 tablet by mouth in the morningfluconazole (DIFLUCAN) 200 mg tablet Take 1 tablet (200 mg total) by mouth in the morning for 3 days. 1 tablet 02/06/2024 02/09/2024 Activefluticasone propionate 0.05 mg/actuat metered dose nasal spray (20 sources)CorticosteroidStart: 58-63-7011Povgn: 23-02-7275fahr 2 spray(s) nasal route once dailyFluticasone Propionate Active 2 SPRAY INTRANASAL Daily October 09, 2023 12:00am FreeTextSi sprays Nasally Once a day; Note: Source Status: Taking; Provider: Roberta High ( )Start: 51-33-3219arjkdkkxljq (FLONASE) 50 mcg/actuation nasal spray 10/06/2017 Activetake 2 spray(s) nasal route once dailyFluticasone Propionate 50 MCG/ACT 2 sprays Nasally Once a day for 30 day(s) Yvtzxf30 actuat fluticasone furoate 0.2 mg/actuat / vilanterol 0.025 mg/actuat dry powder inhaler (1 source)Corticosteroid, beta2-Adrenergic AgonistStart: 77-02-6823bjox 1 puff(s) by inhalation once daily1 puff, inhalation, Daily, First dose on 02/21/24 at 1300FreeStyle Lisbeth 14 Day Sensor - (8 sources)Start: 03-93-9092Ysgeu: 05-46-3567OrafNpile Lisbeth 14 Day Sensor - as directed SQ change every 14 days for 84 days Jul, ActiveFreeStyle Lisbeth 2 Sensor - (9 sources)Start: 50-24-4717Wapav: 24-47-6737EoohLjzer Lisbeth 2 Sensor - as directed SQ change every 14 days for 84 days Oct, Activefurosemide 20 mg oral tablet (20 sources)Loop DiureticStart: 61-82-3575ownx 1 tablet by mouth in the morning furosemide (Lasix) 20 MG tablet Take 20 mg by mouth in the morning and 20 mg before bedtime. 09/26/2022 ActiveStart: 10-06-2017 End: 67-73-2088bkcj 1 tablet by mouth twice dailyFurosemide (Lasix) 40 mg tablet Discontinued 40 MG PO Twice daily October 09, 2023 12:00am November 01, 2024 11:10am take 1 tablet by mouth once dailyfurosemide (Lasix) 40 MG tablet Take 40 mg by mouth Daily Activeglucagon (rdna) 1 mg injection (1 source)Antihypoglycemic AgentStart: mg, intramuscular, As needed, low blood sugar, blood glucose less than 70 mg/dL and unconscious or NPO without IV access., Starting on Fri02/20/24 at 1854, If conscious and not NPO, immediately follow with meal tray or high protein (7Grams) snack if tray not available. If NPO, initiate IV 5% Dextrose/Water at 100 mL/hr and contact prescriber for additional orders. If blood glucose is not greater than 70 mg/dL after initial treatment, repeat treatment.150 ml glucose 50 mg/ml injection (3 sources)Start: g, oral, As needed, low blood sugar, blood glucose less than 70 mg/dL, Starting on Fri02/20/24 at 1854, If patient conscious and taking PO. If blood glucose is not greater than 70 mg/dL after initial treatment, repeat treatment.Start: mL, intravenous, As needed, low blood sugar, blood glucose less than 70 mg/dL and unconscious orNPO with IV access, Starting on Fri02/20/24 at 1854, Push over 1-3 minutes STAT. If conscious and not NPO, immediately follow with meal tray or high protein (7 grams) snack if tray not available. If NPO, initiate 5% dextrose in water at 100 mL/hr and contact prescriber for additional orders. If blood glucose is not greater than 70 mg/dL after initial treatment, repeat treatment. VESICANT (RED) Warning: HYPERTONIC solution.Start: 12-58-7504vajv 70 mg intravenously every ydup300 mL/hr, intravenous, Continuous PRN, blood glucose less than 70 mg/dL, Starting on Fri02/20/24 at 1854, Use immediately following dextrose 50% or glucagon treatment for patients who are unconscious or NPO. Contact prescriber for additional orders. If blood glucose is not greater than 70 mg/dL after initial treatment, repeat treatment.1 ml heparin sodium, porcine 5000 unt/ml injection (2 sources)Unfractionated Heparin, Anti-coagulantStart: ,000 Units, subcutaneous, Every 8 hours scheduled, First dose (after last modification) on Fri02/24/24 at 1400, Notify prescriber if INR greater than 1.9, hemoglobin less than 10 mg/dL, aPTT greaterthan 40 seconds, and/or platelet count less than 100,000/mm Look-alike/sound-alike medication - verify indication for use. Observe for bleeding.Start: 02-20-2024 End: ,000 Units, subcutaneous, Every 8 hours scheduled, First dose on Fri02/20/24 at 2200, Notify prescriber if INR greater than 1.9, hemoglobin less than 10 mg/dL, aPTT greater than 40 seconds, and/or platelet count less than 100,000/mm Look-alike/sound-alike medication - verify indication for use. Obs erve for bleeding.sodium hypochlorite 1.25 mg/ml topical solution (7 sources)Start: 86-57-9876phjzei hypochlorite (DAKIN'S SOLUTION) 0.125 % solution external solution Apply 1 Application topically in the morning and 1 Application before bedtime. Apply one application topically in the morningand 1 application at bedtime for wound care. 473 mL 2 02/25/2024 ActiveStart: 02-21-2024 End: Application, topical, 2 times daily, First dose on Fri02/23/24 at 1100, Moistened gauze directly to wound bed, do not apply over periwound indomethacin 50 mg oral capsule (20 sources)Nonsteroidal Anti-inflammatory DrugStart: 88-10-9172ntfi 1 capsule by mouth in the morningindomethacin (Indocin) 50 MG capsule Take 50 mg by mouth in the morning and 50 mg in the evening. Take with meals. 05/13/2022 Active3 ml insulin aspart, human 100 unt/ml pen injector (1 source)Insulin AnalogStart: 42-00-7708Xauiuxi Disposable Pump (Omnipod DASH Pods, Gen 4,) misc (18 sources)Start: 10-01-2024 End: 64-83-1901Kqeykcr Disposable Pump (Omnipod DASH Pods, Gen 4,) misc Indications: Type 2 diabetes mellitus without complication, with long-term current use of insulin (HCC) CHANGE POD EVERY 72 HOURS. 10 each 12 10/01/2024 10/01/2025 ActiveInsulin Pump Cart,Cont Inf,Bt (1 source)Start: 91-58-3030Qjlafzy Pump Cart,Cont Inf,Bt Active EACH SUBCUT March 17, 2024 12:00amInsulin Pump Cart,Cont Inf,Bt (Omnipod Dash Pods (Gen 4)) cartridge (11 sources)Start: 49-79-0804Czexjgx Pump Cart,Cont Inf,Bt (Omnipod Dash Pods (Gen 4)) cartridge Active EACH SUBCUT March 16, 2024 11:00pmStart: 09-63-3653Axaeyum Pump Cart,Cont Inf,Bt (Omnipod Dash Pods (Gen 4)) cartridge Active EACH SUBCUT March 17, 2024 12:00aminulin 2000 mg chewable tablet (20 sources)Inulin 2 g chewable tablet Chew 2 g ActiveIron (9 sources)Iron (Ferrous Gluconate) 325 MG Orally Active syizg-gnsxs-1-yel-uun-xkctef 009-45-88-50 mg capsule (14 sources)kacgw-zqlni-9-oqn-bcd-btdhgn 301-34-74-50 mg capsule Take by mouth. piipc-yicgr-7-lqx-vwu-ouinpf 863-69-19-50 mg capsule Take by mouth. Active aveuy-hcibx-9-saf-clz-cvcgog 657-34-11-50 mg capsule Take by mouth. 0 Active lactobacillus acidophilus 16 mg oral capsule (20 sources)Lactobacillus (Acidophilus) capsule Take 1 capsule by mouth in the morning and 1 capsule at noon and 1 capsule in the evening. Take with meals. ActiveLactobacillus acidophilus (ACIDOPHILUS) capsule Take 1 capsule by mouth in the morning and 1 capsule at noon and 1 capsule in the evening. Take with meals. Lactobacillus acidophilus (ACIDOPHILUS) capsule Take 1 capsule by mouth in the morning and 1 capsule at noon and 1 capsule in the evening. Take with meals. ActiveLactobacillus acidophilus (ACIDOPHILUS) capsule Take 1 capsule by mouth in the morning and 1 capsule at noon and 1 capsule in the evening. Take with meals. 0 ActivelevoFLOXacin 250 mg oral tablet (20 sources)Quinolone AntimicrobialStart: 31-07-2499cnjb 1 tablet by mouth once dailylevoFLOXacin (Levaquin) 250 MG tablet Take 250 mg by mouth Daily 05/28/2023 Activelevothyroxine sodium 0.175 mg oral tablet (20 sources)l-ThyroxineStart: 03-60-8421989 mcg, oral, Daily, First dose on 02/21/24 at 1200, Look-alike/sound-alike medication. Verify indication for use Administer on empty stomach at least ONE hour before or TWO hours after food Enteral Feeding: For 7 days or less of tube feeding- do NOT hold tube feedings, after 7 days- hold tube feedings ONE hour before and ONE hour after administration DOES NOT APPLY TO NEONATES Monitor thyroid function tests weeklyStart: 16-24-7133cqkh 1 tablet by mouth once daily in the morning Levothyroxine Active 1 TAB PO Every morning October 08, 2023 11:00pmStart: 10-09-2023 End: 73-42-8607piuq 1 tablet by mouth once daily in the morningLevothyroxine 175 mcg tablet Active 175 MCG PO Every morning December 02, 2024 4:05pm Complies with drug therapyStart: 48-70-6215wpzkliiafalaj (SYNTHROID, LEVOTHROID) 150 MCG tablet 10/07/2017 ActiveLevothyroxine Sodium 175 MCG 1 tablet every morning on an empty stomach Orally Once a day Activelisinopril 10 mg oral tablet (20 sources)Angiotensin Converting Enzyme InhibitorStart: 54-08-6604nexy 1 tablet by mouth in the morninglisinopriL (PRINIVIL,ZESTRIL) 10 mg tablet Take 1 tablet (10 mg total) by mouth in the morning. 11/03/2023 ActiveMagnesium (11 sources)Start: 42-64-6244evko 2 tablets by mouth once dailyStart: 03-21-2024 take 2 tablets by mouth once dailyMagnesium 200 mg tablet Active 400 MG PO Daily March 21, 2024 12:00am Complies with drug therapyStart: 51-32-6479zcvp 2 tablets by mouth once dailyMagnesium 200 mg tablet Active 400 MG PO Daily March 21, 2024 12:00amStart: 76-98-1935nwtw 400 mg by mouth once daily Magnesium Active 400 MG PO Daily March 20, 2024 11:00pmStart: 51-73-9324zvil 400 mg by mouth once dailyMagnesium Active 400 MG PO Daily March 21, 2024 12:00am50 ml magnesium sulfate 40 mg/ml injection (2 sources)Start: ,000 mg, intravenous, at 25 mL/hr, Administer over 120 Minutes, As needed, Magnesium level 1.7 to 1.9 mg/dL, or Ionized Magnesium level 0.45 to 0.5 mmol/L., Starting on Fri02/20/24 at 1855, Recheck magnesium level 4 hours after infusion complete. With each magnesium result continue the replacementorders as needed.Start: ,000 mg, intravenous, at 25 mL/hr, Administer over 240 Minutes, As needed, Magnesium level 1.6 mg/dL or less, or Ionized Magnesium level 0.44 mmol/L or less, Starting on Fri02/20/24 at 1854, Recheckmagnesium level 4 hours after infusion complete. 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, Indication: SSTI, Authorizing Service: IDconsult has been placed, I acknowledge that an appropriate consult is REQUIRED to use this drug at [facility], [facility] and [facility] per [facility]-approved policy # MM 1.15: YesStart: 02-24-2024 End: ,000 mg, intravenous, at 240 mL/hr, Administer over 30 Minutes, Once, On Fri02/24/24 at 1800, For 1 dose, Indication: SSTI, Authorizing Service: ID consult has been placedmetoprolol tartrate 100 mg oral tablet (20 sources)beta-Adrenergic BlockerStart: 44-22-2370oquy 1 tablet by mouth twice dailyStart: 03-17-2024 End: 14-86-1521pqyo 1 tablet by mouth twice dailyMetoprolol Tartrate 75 mg tablet Discontinued 75 MG PO Twice daily March 17, 2024 12:00am December 02, 2024 4:06pmStart: 57-47-3075eyvb 75 mg by mouth twice daily for tgxbnqpuwsrw32 mg, oral, 2 times daily, First dose on 02/21/24 at 1200, Look-alike/sound-alike medication - verify indication for use., Indications: hypertensionStart: 10-06-2017 End: 68-61-5428hvol 1 tablet by mouth twice dailyMetoprolol Tartrate 50 mg tablet Discontinued 1 TAB PO Twice daily October 09, 2023 12:00am March 17, 2024 8:34pm FreeTextSi tablet Orally Twice a day; Note: Source Status: Taking; Provider: Roberta High ( )Start: 91-34-7593jgeu 1.5 tablets by mouth in the morning, then take 1.5 tablets by mouth at bedtime metoprolol tartrate (LOPRESSOR) 50 mg tablet Indications: hypertension Take 1.5 tablets (75 mg total) by mouth in the morning and 1.5 tablets (75 mg total) before bedtime. Indications: high blood pressure. 10/06/2017 Activetake 1 tablet by mouth every twelve hoursmetoprolol tartrate (Lopressor) 50 MG tablet Take 50 mg by mouth every 12 (twelve) hours Activemontelukast 10 mg oral tablet (20 sources)Leukotriene Receptor AntagonistStart: 05-30-3905zfza 1 tablet by mouth once dailymontelukast (Singulair) 10 MG tablet Take 10 mg by mouth Daily 04/04/2022 Active1 ml morphine sulfate 2 mg/ml prefilled syringe (1 source)Opioid AgonistStart: 58-20-1338gsip 2 mg intravenously every four hours as needed for pain2 mg, intravenous, Every 4 hours PRN, severe pain - pain scale 7-10, Starting on 02/22/24 at 1102, Look-alike/sound-alike medication - verify indication for use.multivitamin tablet,chewable (14 sources)multivitamin tablet,chewable Chew 2 capsules and swallow. multivitamin tablet,chewable Chew 2 capsules and swallow. Activemultivitamin tablet,chewable Chew 2 capsules and swallow. 0 ActiveMultivitamins (9 sources)Multivitamins as directed Orally Activenystatin 100 unt/mg topical powder (5 sources)Polyene AntifungalStart: 02-01-2025 End: 31-64-8375Wznai: 11-04-2017 End: 01-27-0337hblitmkt (MYCOSTATIN) creamOmniPod Dash 5 Pack - (3 sources)OmniPod Dash 5 Pack - as directed In Vitro Change every 72 hours for 90 days ActiveOmnipod DASH Pods (Gen 4) - (2 sources)Omnipod DASH Pods (Gen 4) - for 90 Days Active2 ml ondansetron 2 mg/ml injection (15 sources)Serotonin-3 Receptor AntagonistStart: 57-21-7064socw 4 mg intravenously every six hours as needed for nausea and vomiting4 mg, intravenous, Every 6 hours PRN, nausea, vomiting, Starting on Fri02/20/24 at 1854, Administerover 2-5 minutes.Start: 83-57-4155svph 1 tablet by mouth every eight hours as needed for nauseaondansetron ODT (ZOFRAN-ODT) 4 mg disintegrating tablet Dissolve 1 tablet (4 mg total) on tongue every 8 (eight) hours as needed for nausea. 11/25/2017 ActiveOne Touch Glucometer 1 (3 sources)Start: 16-23-5696Sdf Touch Glucometer 1 as directed SQ qid for 365 days Oct, Activepantoprazole 40 mg delayed release oral tablet (20 sources)Proton Pump InhibitorStart: 22-03-962729 mg, oral, Every morning before breakfast, First dose on 02/21/24 at 0600, Look-alike/sound-alike medication - verify indication for use. If patient is receiving enteral feeding, consider alternative PPI or continue IV pantoprazole until the delayed-release tablet can be taken orally, Indication: GERDStart: 65-49-9478vroc 1 tablet by mouth twice dailyPantoprazole (Protonix) 40 mg tablet,delayed release (DR/EC) Active 1 TAB PO Twice daily October 09, 2023 12:00am Complies with drug therapyPen [place] 10/15 (3 sources)Start: 32-95-3887Fgs [place] 5/16 USE WITH PEN INSULIN SQ qid for 90 day(s) Jul, Activeplant stanol anisa (2 sources)Start: 69-96-5877irwi 1 tablet by mouth oncePlant Stanol Anisa Active TAB PO October 09, 2023 12:00am FreeTextSig: Orally; Note: Source Status: Pasquale ingTWICE A DAY; Provider: Roberta High ( )Start: 39-36-5302ucxg 1 tablet by mouth oncePlant Stanol Anisa Active TAB PO October 09, 2023 12:00am FreeTextSig: Orally; Note: Source Status: TakingTWICE A DAY; Provider: Roberta High ( )Potassium Chloride (1 source)Start: 96-78-1016epffarucf chloride (KLOR-CON M 20) CR tablet 30-50 mEqpregabalin 100 mg oral capsule (20 sources)Start: 10-09-2023 End: 35-23-5351ucji 1 capsule by mouth in the morning, then take 1 capsule by mouth in the evening, then take 1 capsule by mouth at bedtimeLyrica 100 MG capsule Indications: Lumbar back pain , Lumbar radiculopathy Take 1 capsule (100 mg) by mouth in the morning and 1 capsule (100 mg) in the evening and 1 capsule (100 mg) before bedtime.270 capsule 08/10/2024 ActiveStart: 81-03-0852shvc 1 capsule by mouth three times dailyLYRICA 75 mg capsule Take 1 capsule (75 mg total) by mouth 3 (three) times a day. 11/03/2017 Activetake 1 capsule by mouth every eight hoursLyrica 100 MG 1 capsule Orally tid ActiveProbiotic - (9 sources)Probiotic - Orally ActiveSpiriva Respimat 2.5 mcg/actuation (9 sources)Spiriva Respimat 2.5 mcg/actuation 2 puffs daily ActiveSuper B Complex (9 sources)Super B Complex Bwfgxg21 actuat tiotropium 0.77699 mg/actuat inhalation spray (20 sources)Anticholinergictiotropium (Spiriva Respimat) 1.25 MCG/ACT inhaler Inhale 2 puffs 1 (one) time each day at the sametime Activetake 2 puff(s) by inhalation in the morningtiotropium bromide 1.25 mcg/actuation mist Inhale 2 puffs in the morning.take 2 puff(s) by inhalation in the morningtiotropium bromide 1.25 mcg/actuation mist Inhale 2 puffs in the morning. Activetake 2 puff(s) by inhalation in the morningtiotropium bromide 1.25 mcg/actuation mist Inhale 2 puffs in the morning. 0 ActiveTRULICITY 4.5 mg/0.5 mL pen injector (14 sources)Start: 23-21-1781vppmgx 4.5 mg by subcutaneous injection every week TRULICITY 4.5 mg/0.5 mL pen injector Inject 4.5 mg under the skin once a week. Sundays07/07/2023Start: 48-75-7212kwizlm 4.5 mg by subcutaneous injection every weekTRULICITY 4.5 mg/0.5 mL pen injector Inject 4.5 mg under the skin once a week. Sundays07/07/2023 ActiveStart: 12-72-7046akknwi 4.5 mg by subcutaneous injection every weekTRULICITY 4.5 mg/0.5 mL pen injector Inject 4.5 mg under the skin once a week. Sundays07/07/2023ctivevancomycin (VANCOCIN) 1,500 mg in sodium chloride 0.9 % 500 mL IVPB (2 sources)Start: 79-37-0103mduw 1500 mg intravenously every twenty-four hours 1,500 mg, intravenous, at 353 mL/hr, Administer over 90 Minutes, Every 24 hours, First dose (after last modification) on Fri02/24/24 at 2100, VESICANT (YELLOW), Indication: Uncomplicated skin andsoft tissue infectionStart: 02-22-2024 End: ,500 mg, intravenous, at 353 mL/hr, Administer over 90 Minutes, Every 36 hours, First dose on Fri02/22/24 at 0900, VESICANT (YELLOW), Indication: Uncomplicated skin and soft tissue infectionVitamin B Complex (19 sources)Start: 08-85-6335tlya 1 tablet by mouth once dailyVitamin B Complex Active 1 TAB PO Daily October 08, 2023 11:00pmStart: 85-14-8835xamz 1 tablet by mouth once dailyVitamin B Complex Active 1 TAB PO Daily October 09, 2023 12:00am vitamin B complex (SUPER B-50 COMPLEX PLUS ORAL) Take by mouth.vitamin B complex (SUPER B-50 COMPLEX PLUS ORAL) Take by mouth. Activevitamin B complex (SUPER B- 50 COMPLEX PLUS ORAL) Take by mouth. 0 ActiveVitamin C 250 MG (6 sources)take 1 tablet by mouth once dailyVitamin C 250 MG 1 tablet Orally Once a day ActiveVitamin E 400 UNIT (9 sources)take 1 capsule by mouth once dailyVitamin E 400 UNIT 1 capsule Orally Once a day Aqsujt53 hr zileuton 600 mg extended release oral tablet (20 sources)5-Lipoxygenase Inhibitorzileuton CR (Zyflo CR) 600 MG 12 hr tablet Take 1,200 mg by mouth every 12 (twelve) hours Activetake 2 tablets by mouth every twelve hoursZyflo 600 MG 2 tablet orally bid Not-TakingZinc (1 source)take 1 tablet by mouth once dailyZinc 50 MG 1 tablet Orally Once a day Activezinc gluconate 50 mg oral tablet (20 sources)Start: 10-09-2023 End: 36-21-1962acap 1 tablet by mouth once dailyZinc Gluconate 50 mg tablet Active 50 MG PO Daily December 02, 2024 4:07pm Complies with drug therapytake 1 tablet by mouth every twenty-four hours Completed/Discontinued Medications MedicationDrug Class(es)DatesSig (Normalized)Sig (Original)acetaminophen 325 mg / HYDROcodone bitartrate 5 mg oral tablet (20 sources)Opioid AgonistStart: 05-03-2024 End: 75-39-5107qdak 1 tablet by mouth every six hours as needed for pain Hydrocodone-Acetaminophen 5-325 mg tablet Discontinued 1 TAB PO Q6H as needed for pain 19 10May 03, 2024 March 13, 2025 12:46pmStart: 03-24-2024 End: 75-81-6706jgbj 1 tablet by mouth twice daily as needed for painHydrocodone- Acetaminophen 5-325 mg Tablet Discontinued 1 TAB PO Twice daily as needed for Pain 10 5Oct2023December 02, 2024 4:05pmStart: 20-77-4413fdcp 1 tablet by mouth every four hours as needed for painHYDROcodone-acetaminophen (NORCO) 5- 325 mg per tablet Take 1 tablet by mouth every 4 (four) hours as needed for pain. 01/18/2024 ActiveCalcium Carbonate / vitamin D3 (1 source) End: 92-45-7992xvbwbao carbonate/vitamin D3 (CALCIUM 500 + D, D3, ORAL) Take by mouth. 0 08/14/2023 Discontinued (Duplicate Listing)canagliflozin 100 mg oral tablet (4 sources)Sodium-Glucose Cotransporter 2 InhibitorStart: 09-39-8211fqia 1 tablet by mouth oncecholecalciferol 0.05 mg oral capsule (20 sources)Vitamin DStart: 10-09-2023 End: 22-63-8241lles 1 capsule by mouth once dailyCholecalciferol (Vitamin D3) 50 mcg (2,000 unit) capsule Discontinued 1 CAP PO Daily October 09, 2023 12:00am March 17, 2024 8:28pm FreeTextSi capsule Orally Once a day; Note: Source Status: Taking; Provider: Roberta High ( )Start: 10-09-2023 End: 70-57-3963nkqi 1 capsule by mouth once dailyCholecalciferol (Vitamin D3) Discontinued 1 CAP PO Daily October 08, 2023 11:00pm March 17, 2024 7:28pm FreeTextSi capsule Orally Once a day; Note: Source Status: Taking; Provider: Roberta High ( ) End: 11-38-3796jiih 1 capsule by mouth in the morningcholecalciferol (Vitamin D- 3) 50 MCG (2000 UT) capsule Take 2,000 Units by mouth in the morning. Active cinnamon bark 500 mg oral capsule (20 sources)Start: 10-09-2023 End: 01-04-9391zwtn 1 capsule by mouth twice dailyCinnamon Bark (Cinnamon) 500 mg capsule Discontinued 500 MG PO .bid October 09, 2023 12:00am March 13, 2025 12:46pmStart: 94-80-8834hrlh 1 capsule by mouth once dailyCinnamon Bark (Cinnamon) 500 mg capsule Active 1000 MG PO Daily October 08, 2023 11:00pmtake 4 capsules by mouth in the morningcinnamon 500 MG capsule Take 2,000 mg by mouth in the morning. Activeclindamycin 150 mg oral capsule (20 sources)Lincosamide AntibacterialStart: 08-21-2024 End: 72-57-7224phgc 3 capsules by mouth three times dailyClindamycin Hcl 150 mg capsule Discontinued 450 MG PO Three times daily 63 August 21, 2024 12:00am December 02, 2024 4:04pmStart: 03-06-3090pjvq 1 capsule by mouth in the morning, then take 1 capsule by mouth in the evening, then take 1 capsule by mouth at bedtimeclindamycin (Cleocin) 300 MG capsule Take 300 mg by mouth in the morning and 300 mg in the evening and 300 mg before bedtime. 10/15/2022 Active diphenhydrAMINE hydrochloride 25 mg oral capsule (4 sources)Histamine-1 Receptor AntagonistStart: 12-02-2024 End: 91-30-8062ztcc 1 capsule by mouth twice daily as neededDiphenhydramine Hcl (Allergy Relief(Diphenhydramin)) 25 mg capsule Discontinued 25 MG PO Twice daily as needed for allergic reaction December 02, 2024 12:00am March 09, 2025 8:47pm doxycycline hyclate 100 mg oral tablet (20 sources)Tetracycline-class DrugStart: 08-11-2024 End: 77-05-9915gxuj 1 tablet by mouth twice dailyDoxycycline Hyclate 100 mg tablet Discontinued 100 MG PO Twice daily 21 03August 11, 2024 12:00amJuly 2024 4:04pmStart: 03-16-2024 End: 23-39-9942uvnk 1 capsule by mouth twice dailyDoxycycline Hyclate 100 mg capsule Discontinued 100 MG PO Twice daily March 16, 2024 12:00amOct2023 8:30pmStart: 02-20-2024 End: 73-93-2923Ydgafcij on Fri02/20/24 at 2254, For 1 dose, Raysa Zafar: desmond overrideStart: 02-20-2024 End: 46-62-2839402 mg, oral, 2 times daily, First dose on Fri02/20/24 at 2100, May give with meals to decrease GI upset. Administer with at least 8 ounces of water and have patient sit up for at least 30 minutes after taking to reduce the risk of esophageal irritation and ulceration., Indication: Skin and soft tissue infectionStart: 02-06-2024 End: 43-45-2887hftl 1 tablet by mouth in the morning, then take 1 tablet by mouth at bedtimedoxycycline (ADOXA) 100 MG tablet Indications: Spider bite wound, accidental or unintentional, subsequent encounter Take 1 tablet (100 mg total) by mouth in the morning and 1 tablet (100 mg total) before bedtime. Do all this for 14 days. 28 tablet 02/06/2024 02/27/2024 Discontinued (Stop Taking at Discharge)Start: 46-03-0717cnav 1 capsule by mouth in the morningdoxycycline (Monodox) 100 MG capsule Take 100 mg by mouth in the morning and 100 mg before bedtime.10/08/2022 ActiveDoxycycline Hyclate 100 MG Oral for 14 Days Not-Taking Durolane (1 source)Start: 48-71-4966Usknhftq Oct, 60 mgferrous sulfate 325 mg oral tablet (20 sources)Start: 10-09-2023 End: 48-73-2576bwqx 1 tablet by mouth once dailyFerrous Sulfate (Feosol) 325 mg (65 mg iron) tablet Discontinued 325 MG PO Daily October 09, 2023 12:00am March 13, 2025 12:46pm0.5 ml HYDROmorphone hydrochloride 1 mg/ml prefilled syringe (1 source)Opioid AgonistStart: 02-24-2024 End: .5 mg, intravenous, Every 5 min PRN, severe pain - pain scale 7- 10, Starting on Fri02/24/24 at 1552, PACU (only), If IV push, administer over over 2 to 3 minutes. Look-alike/sound-alike medication -verify indication for use.3 ml insulin glargine 100 unt/ml pen injector (2 sources)Insulin AnalogStart: 02-22-2024 End: 46-31-7685Mvzxjtvg on 02/22/24 at 2213, For 1 dose, [place] Krueger: anat override Look-alike/sound-alike medication - verify indication for use. Prime with 2 units of insulin prior to administration. Basal(long acting) insulin for subcutaneous administration only. Do not mix with any other insulin. Pre-filled pens stable 28 days at room temperature.Start: 02-22-2024 End: Units, subcutaneous, 2 times daily, First dose on Fri02/22/24 at 2100, Look-alike/sound-alike medication - verify indication for use. Prime with 2 units of insulin prior to administration. Basal (long acting) insulin for subcutaneous administration only. Do not mix with any other insulin. Pre-filled pens stable 28 days at room temperature.3 ml insulin lispro 100 unt/ml pen injector (9 sources)Insulin AnalogStart: 02-24-2024 End: 53-80-8131yvluce 450 mg by subcutaneous injection once, then inject 2 [IU] by subcutaneous injection 15 minutes after mealtime3-18 Units, subcutaneous, Once, On Fri02/24/24 at 1800, For 1 dose, Sliding scale hyperglycemia dosing. For blood glucose 151-200 mg/dL, give 3 units. For blood glucose 201-250 mg/dL, give 6 units. For blood glucose 251-300 mg/dL, give 9 units. For blood glucose 301-350 mg/dL, give 12 units. For blood glucose 351-400 mg/dL, give 15 units. For blood glucose 401-450 mg/dL, give 18 units Give even if NPO or meals skipped. Do NOT give more often then every 4 hours when NPO. Notify prescriber if blood glucose greater than 450 mg/dL. Look-alike/sound-alike medication - verify indication for use. Prime with 2 units of insulin prior to administration. Prandial/supplemental Insulin. Pre-filled pens stable 28 days at room temperature. Insulin lispro should be administered within 15 minutes before or immediately after a meal.Start: 62-48-3737hajmit 450 mg by subcutaneous injection four times daily at mealtime, then inject 2 [IU] by subcutaneous injection 15 minutes after mealtime3-18 Units, subcutaneous, 4 times daily with meals and nightly, First dose (after last modification) on Fri02/24/24 at 1200, Sliding scale hyperglycemia dosing. For blood glucose 151-200 mg/dL, give 3 units. For blood glucose 201-250 mg/dL, give 6 units. For blood glucose 251-300 mg/dL, give 9 units. For blood glucose 301-350 mg/dL, give 12 units. For blood glucose 351-400 mg/dL, give 15 units. For blood glucose 401-450 mg/dL, give 18 units Give even if NPO or meals skipped. Do NOT give more often then every 4 hours when NPO. Notify prescriber if blood glucose greater than 450 mg/dL. Look-alike/sound-alike medication - verify indication for use. Prime with 2 units of insulin prior to administration. Prandial/supplemental Insulin. Pre-filled pens stable 28 days at room temperature. Insulinlispro should be administered within 15 minutes before or immediately after a meal.Start: 02-23-2024 End: 01-16-4907tqthoy 15 [IU] by subcutaneous injection once, then inject 2 [IU] by subcutaneous injection 15 minutes after huukjkap69 Units, subcutaneous, Once, On Fri02/23/24 at 1645, For 1 dose, Look-alike/sound-alike medication- verify indication for use. Prime with 2 units of insulin prior to administration. Prandial/supplemental Insulin. Pre-filled pens stable 28 days at room temperature. Insulin lispro should be administered within 15 minutes before or immediately after a meal.Start: 02-22-2024 End: 87-58-0360tyaopj 2 [IU] by subcutaneous injection 15 minutes after mealtime 20 Units, subcutaneous, Once, On Fri02/22/24 at 2230, For 1 dose, Look-alike/sound-alike medication- verify indication for use. Prime with 2 units of insulin prior to administration. Prandial/supplemental Insulin. Pre-filled pens stable 28 days at room temperature. Insulin lispro should be administered within 15 minutes before or immediately after a meal.Start: 02-22-2024 End: 04-92-4902rwlqfn 15 [IU] by subcutaneous injection once, then inject 2 [IU] by subcutaneous injection 15 minutes after repskrvs03 Units, subcutaneous, Once, On Fri02/22/24 at 1600, For 1 dose, Look-alike/sound-alike medication- verify indication for use. Prime with 2 units of insulin prior to administration. Prandial/supplemental Insulin. Pre-filled pens stable 28 days at room temperature. Insulin lispro should be administered within 15 minutes before or immediately after a meal.Start: 02-21-2024 End: 24-36-1665jjapsf 400 mg by subcutaneous injection three times daily at mealtime, then inject 2 [IU] by subcutaneous injection 15 minutes after mealtime 2-10 Units, subcutaneous, 3 times daily with meals, First dose on Fri02/23/24 at 1200, Daytime hyperglycemia dosing. For blood glucose 151-200 mg/dL, give 2 units. For blood glucose 201-250 mg/dL, give 4 units. For blood glucose 251-300 mg/dL, give 6 units. For blood glucose 301-350 mg/dL, give 8 units. For blood glucose 351-400 mg/dL, give 10 units. Give even if NPO or meals skipped. Do NOT givemore often then every 4 hours when NPO. Notify prescriber if blood glucose greater than 400 mg/dL. Look-alike/sound-alike medication - verify indication for use. Prime with 2 units of insulin prior to administration. Prandial/supplemental Insulin. Pre-filled pens stable 28 days at room temperature.Insulin lispro should be administered within 15 minutes before or immediately after a meal.Start: 02-20-2024 End: 89-16-7719pyelud 400 mg by subcutaneous injection once daily, then inject 2 [IU] by subcutaneous injection 15minutes after mealtime2-8 Units, subcutaneous, Nightly, First dose on Fri02/23/24 at 2200, Bedtime hyperglycemia dosing. For blood glucose 201-250 mg/dL, give 2 units. For blood glucose 251-300 mg/dL, give 4 units. For blood glucose 301-350 mg/dL, give 6 units. For blood glucose 351- 400 mg/dL, give 8 units. Give even ifNPO or meals skipped. Do NOT give more often then every 4 hours when NPO. Notify prescriber if blood glucose greater than 400 mg/dL. Look-alike/sound-alike medication - verify indication for use. Prime with 2 units of insulin prior to administration. Prandial/supplemental Insulin. Pre-filled pens stable 28 days at room temperature. Insulin lispro should be administered within 15 minutes before orimmediately after a meal. insulin, regular, human 500 unt/ml injectable solution (20 sources)InsulinStart: 71-96-6104Fetvwdd Regular Hum U-500 Conc Active UNIT SUBCUT October 09, 2023 12:00am FreeTextSig: as directed Subcutaneous INSULIN PUMP; Note: Source Status: Taking; Provider: Roberta High ( )Start: 09-14-2022 End: 34-35-5247yzozkp 250 [IU] by subcutaneous injection once dailyinsulin regular (HumuLIN R) 500 UNIT/ML CONCENTRATED injection Indications: Type 2 diabetes mellitus without complication, with long-term current use of insulin (HCC) Inject 250 Units under the skin Daily 45 mL 1 09/28/2024 03/29/2025 Discontinued (Reorder)Start: 17-67-8695GvthJDB R 500 UNIT/ML CONCENTRATED injection Inject 500 mL under the skin in the morning. 09/14/2022 ActiveStart: 09-91-9542FNYJCTR R U-500, CONC, KWIKPEN injection Inject 150 Units of U-500 under the skin in the morning and 150 Units of U-500 at noon and 150 Units of U- 500 in the evening and 150 Units of U-500 before bedtime. 150-190 units QID. 10/07/2017 Active End: 25-68-6565dccqdmf regular (HumuLIN R U-500 KWIKPEN) 500 UNIT/ML CONCENTRATED injection Inject 500 mL under the skin at bedtime 03/29/2025 Discontinued (Formulary change)HumuLIN R U-500 (CONCENTRATED) 500 UNIT/ML as directed Subcutaneous INSULIN PUMP Activekrill oil (20 sources)Start: 10-09-2023 End: 00-05-9577Qoofi-If-2-Atm-Mfc-Zncspad-Guo (Krill Oil) 1,554-188-91-80 mg capsule Discontinued 1 CAP PO Every evening October 09, 2023 12:00am March 13, 2025 12:46pmStart: 80-89-9315Rvsln-Yg-6-Oiw-Iau-Xvgmacw-Ecq (Krill Oil) 1,874-047-53-80 mg capsule Active 1 CAP PO Every eveningOctober 09, 2023 12:00am Complies with drug therapyStart: 62-33-3813Slaej-Wb-9-Saf-Naj-Ebzkqws-Juq (Krill Oil) 1,430-025-28-80 mg capsule Active 1 CAP PO Every eveningMay 2023 12:00amStart: 41-91-0159Rltcj-Hl-8-Kxa-Bcf-Bmduwcp-Lyt (Krill Oil) 1,734-443-13-80 mg capsule Active 1 CAP PO Twice daily October 08, 2023 11:00pm Start: 71-37-3007Jytgz-Wu-0-Hlp-Tyn-Itzqlao-Jrj (Krill Oil) 1,820-027-48-80 mg capsule Active 1 CAP PO Twice daily October 09, 2023 12:00amKrill Oil 300 MG Orally Activelidocaine 25 mg/ml / prilocaine 25 mg/ml topical cream (3 sources)Antiarrhythmic, Amide Local AnestheticStart: 03-10-2024 End: Application, topical, Once, On Fri03/10/24 at 1645, For 1 dose, If no allergy, apply topically towounds with each wound care appointment with practitioner for pain control.Start: 03-03-2024 End: Application, topical, Once, On Fri03/03/24 at 1230, For 1 dose, If no allergy, apply topically towounds with each wound care appointment with practitioner for pain control.Start: 02-13-2024 End: Application, topical, Once, On Fri02/13/24 at 0930, For 1 dose, If no allergy, apply topically towounds with each wound care appointment with practitioner for pain control.meropenem 1000 mg injection (11 sources)Penem AntibacterialStart: 03-22-2024 End: 95-21-8801tzvk 1 g intravenously every eight hoursMeropenem 1 gram Recon Soln Discontinued 1 GM IV Q8H 63 March 22, 2024 12:00am May 11:90qzWgpapiva-Fyj-Hpbcsnu Sulfate (One Daily Multi-Vit W-Mineral) 4.5 mg iron tablet (14 sources)Start: 10-09-2023 End: 26-07-4862syvu 1 tablet by mouth once wcyivTxybdmcq-Ezt-Vwybwpy Sulfate (One Daily Multi-Vit W-Mineral) 4.5 mg iron tablet Discontinued 1 TAB PO daily October 09, 2023 12:00am March 13, 2025 12:46pmStart: 23-77-3332eiqt 1 tablet by mouth once iqyhdYxcicxfr-Suh-Vcduzri Sulfate (One Daily Multi-Vit W-Mineral) 4.5 mg iron tablet Active 1 TAB PO daily October 09, 2023 12:00am Complies with drug therapyStart: 79-43-3609gmwz 1 tablet by mouth once daily Sxqqrosx-Rme-Spkygao Sulfate (One Daily Multi-Vit W-Mineral) 4.5 mg iron tablet Active 1 TAB PO daily October 08, 2023 11:00pmStart: 40-35-4414gsng 1 tablet by mouth once adktcFacoiasm-Kmm-Tnmxuzh Sulfate (One Daily Multi-Vit W-Mineral) 4.5 mg iron tablet Active 1 TAB PO daily October 09, 2023 12:00amPolydextrose (Childrens Fiber Gummy Bear) 1.5 gram tablet,chewable (14 sources)Start: 10-09-2023 End: 37-75-9760pyyr 1 tablet by mouth once dailyPolydextrose (Childrens Fiber Gummy Bear) 1.5 gram tablet,chewable Discontinued 4 GM PO daily October 09, 2023 12:00am March 13, 2025 12:46pmStart: 82-67-7146zbdi 1 tablet by mouth once dailyPolydextrose (Childrens Fiber Gummy Bear) 1.5 gram tablet,chewable Active 4 GM PO daily October 09, 2023 12:00am Complies with drug therapyStart: 10-09-2023 take 1 tablet by mouth once dailyPolydextrose (Childrens Fiber Gummy Bear) 1.5 gram tablet,chewable Active 4 GM PO daily October 08, 2023 11:00pmStart: 10-09-2023 take 1 tablet by mouth once dailyPolydextrose (Childrens Fiber Gummy Bear) 1.5 gram tablet,chewable Active 4 GM PO daily October 09, 2023 12:00amraNITIdine 150 mg oral tablet (1 source)Histamine-2 Receptor AntagonistStart: 10-06-2017 End: 73-93-6463cpTLMSfqel (ZANTAC) 150 mg tabletsaccharomyces boulardii 250 mg oral capsule (14 sources)Start: 10-09-2023 End: 07-08-7252vtwb 1 capsule by mouth once daily in the morningSaccharomyces Boulardii (Daily Probiotic (S. Boulardii)) 250 mg capsule Discontinued 250 MG PO Every morning October 09, 2023 12:00am March 13, 2025 12:46pmStart: 10-09-2023 take 1 capsule by mouth twice dailySaccharomyces Boulardii (Daily Probiotic (S. Boulardii)) 250 mg capsule Active 250 MG PO Twice daily October 08, 2023 11:00pm sacubitril 49 mg / valsartan 51 mg oral tablet (4 sources)Angiotensin 2 Receptor BlockerStart: 79-22-8384xfdd 1 tablet by mouth twice dailySITagliptin 100 mg oral tablet (1 source)Dipeptidyl Peptidase 4 InhibitorStart: 11-03-2017 End: 41-26-8166URIYMWB 100 mg xbmqlz9844 ml sodium chloride 9 mg/ml injection (4 sources)Start: 02-20-2024 End: 65-87-4661jbdn 75 mL intravenously every hour75 mL/hr, intravenous, Continuous, Starting on Fri02/20/24 at 1900, For 24 hoursStart: 09-08-4844vzal 20 mL intravenously every hour as xgirxo24 mL/hr, intravenous, Continuous PRN, to maintain patency of lines, Starting on Fri02/20/24 at 1854Start: 02-20-2024 take 25 mL intravenously every hour as oxflxb96 mL, intravenous, at 100 mL/hr, Administer over 15 Minutes, As needed, line care, line care afterIVPB administration, Starting on Fri02/20/24 at 1854Start: mL, intravenous, As needed, line care, before and after each intermittent use, Starting on Fri02/20/24 at 1626traMADol hydrochloride 50 mg oral tablet (20 sources)Opioid AgonistStart: 10-09-2023 End: 22-10-8169alec 1 tablet by mouth every eight hours as neededTramadol 50 mg tablet Discontinued 50 MG PO Every 8 hours as needed October 09, 2023 12:00am March 17, 2024 8:27pmStart: 97-14-0219ssxq 1 tablet by mouth every six hours as neededtraMADol (Ultram) 50 MG tablet Take 50 mg by mouth every 6 (six) hours if needed 10/15/2022 Activetriamcinolone acetonide 0.001 mg/mg topical ointment (20 sources)CorticosteroidStart: 10-09-2023 End: 51-16-5705Eurdacvonsvbc Acetonide 0.1 % ointment Discontinued 1 APPLIC TOPICAL Daily as needed for skin irritation October 09, 2023 12:00am March 13, 2025 12:46pmStart: 51-07-2996Wynvwhejbetdi Acetonide Active APPLIC TOPICAL October 09, 2023 12:00am FreeTextSig: External; Note: Source Status: Taking; Qty: 80 Gram; Provider: Roberta High ( )Triamcinolone Acetonide 0.1 % External for 90 Days Activevancomycin (VANCOCIN) 1,750 mg in sodium chloride 0.9 % 500 mL IVPB (1 source)Start: 02-20-2024 End: ,750 mg (rounded from 1,776 mg = 15 mg/kg 118.4 kg), intravenous, at 268 mL/hr, Administer over 120 Minutes, Once, On Fri02/20/24 at 1930, For 1 dose, VESICANT (YELLOW), Indication: Uncomplicated skin and soft tissue infectionVitamin B Complex tablet (9 sources)Start: 10-09-2023 End: 83-65-9098fkek 1 tablet by mouth once dailyVitamin B Complex tablet Discontinued 1 TAB PO Daily October 09, 2023 12:00am March 13, 2025 12:46pm Start: 83-54-7517mjkp 1 tablet by mouth once dailyVitamin B Complex tablet Active 1 TAB PO Daily October 09, 2023 12:00am Complies with drug therapyStart: 49-44-4094nlfp 1 tablet by mouth once dailyVitamin B Complex tablet Active 1 TAB PO Daily October 09, 2023 12:00amvitamin e 180 mg oral capsule (20 sources)Start: 10-09-2023 End: 95-63-7436jmvr 1 capsule by mouth once dailyVitamin E (Dl, Acetate) 180 mg (400 unit) capsule Discontinued 1 CAP PO Daily October 09, 2023 12:00amOct2024 12:46pmtake 1 capsule by mouth in the morningvitamin E, dl,tocopheryl acet, (VITAMIN E, DL, ACETATE,) 400 unit capsule Take 1 capsule (400 Units total) by mouth in the morning. Active Problems Active Problems Problem ClassificationProblemDateDocumented DateEpisodic/ChronicAcute and unspecified renal failure (7 sources)Acute renal failure syndrome; Translations: [Acute kidney failure, unspecified]Onset: 838753-71-3748CbrxqrzmRuury myocardial infarction (2 sources)Non-ST elevation (NSTEMI) myocardial infarction; Translations: [Non- ST elevation (NSTEMI) myocardial infarction]Onset: 13-16-8980Gueikbe Administrative/social admission (6 sources)Patient encounter status; Translations: [Dietary counseling and surveillance]74-86-9858RhfsblboZapiln (20 sources)Cough variant asthma; Translations: [Cough variant asthma]Onset: 76-65-9444ZrgjdyjKcdtrp of ovary (2 sources)Personal history of malignant neoplasm of ovary; Translations: [History of malignant neoplasm of ovary]Onset: 911974-10-1690Kmwwbgch Cardiac dysrhythmias (9 sources)Supraventricular tachycardia; Translations: [Supraventricular tachycardia (CMS-HCC)]Onset: 480260-77-7708PxexlvdJcqftrc kidney disease (20 sources)Chronic kidney disease stage 2; Translations: [CKD (chronic kidney disease) stage 2, GFR 60-89 ml/min]Onset: 363970-48-6734EuxsfriUtwtiiz kidney disease (13 sources)Chronic kidney disease; Translations: [Chronic kidney disease, stage III (moderate)]Onset: 08-02-2021 Resolved: 07-15-3644Vxephog obstructive pulmonary disease and bronchiectasis (2 sources)Unspecified chronic bronchitis; Translations: [Chronic obstructive pulmonary disease with (acute) exacerbation]Onset: 56-83-3590AkwkkgzRnqvcpy ulcer of skin (15 sources)Chronic ulcer of skin; Translations: [Non-pressure chronic ulcer of skin of 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]Onset: 01-57-092245332068-43-9834Lagofvu Congestive heart failure; nonhypertensive (2 sources)Chronic diastolic (congestive) heart failure; Translations: [Chronic diastolic (congestive) heart failure]Onset: 19-63-2325DojbptcDjcvixzj atherosclerosis and other heart disease (2 sources)Atherosclerotic heart disease of [place] coronary artery without angina pectoris; Translations: [Atherosclerotic heart disease of [place] coronary artery without angina pectoris]Onset: 48-77-7629JknkhgqEdaddnqu atherosclerosis and other heart disease (1 source)Coronary atherosclerosis and other heart diseaseOnset: 11-06-2017 Deficiency and other anemia (9 sources)Anemia in chronic kidney disease; Translations: [Anemia in chronic kidney disease]ChronicDeficiency and other anemia (9 sources)Iron deficiency anemia; Translations: [Iron deficiency anemia] EpisodicDiabetes mellitus with complications (20 sources)Disorder of kidney due to diabetes mellitus; Translations: [Type 2 diabetes mellitus with diabetic nephropathy]Onset: 02-10-2012 Resolved: 02-18-8897LaozwdzKuktvyqt mellitus without complication (20 sources)Insulin dose changed; Translations: [Encounter for fitting and adjustment of insulin pump]Onset: 29-99-9667AyfabncBdgfawcd mellitus without complication (20 sources)Insulin pump present; Translations: [Presence of insulin pump (external) (internal)]Onset: 169061-56-1176CbtkvfikMipfwoifu of lipid metabolism (20 sources)Hyperlipidemia; Translations: [Other and unspecified hyperlipidemia] Onset: 767289-49-4490KrysbwcT Codes: Adverse effects of medical drugs (4 sources)Penicillin adverse reaction; Translations: [Adverse effect of penicillins, initial encounter]98-91-5031LsifxbsyIoyrmszupm disorders (10 sources)Gastroesophageal reflux disease; Translations: [GERD [Gastroesophageal reflux disease]]Onset: 80-15-3842XsujovvBcydmxjfj hypertension (9 sources)Essential hypertension; Translations: [Essential (primary) hypertension]ChronicFluid and electrolyte disorders (5 sources)Other disorders of electrolyte and fluid balance, not elsewhere classified; Translations: [OTHER D/O ELECTROLYTE AND FL BAL NEC]Onset: 08-02-2021 Resolved: 72-75-2467XhsckhofRdxbuhsr; including migraine (6 sources)Migraine without aura, not refractory ; Translations: [Migraine without aura, not intractable, without status migrainosus]32-84-7624Ieupsxg Hypertension with complications and secondary hypertension (20 sources)Chronic kidney disease due to hypertension; Translations: [Hypertensive chronic kidney disease withstage 1 through stage 4 chronic kidney disease, or unspecified chronic kidney disease]Onset: 08-02-2021 Resolved: 90-31-7397JyeozjqCnyoobj (20 sources)Pain in toe; Translations: [Tinea unguium]Onset: 03-09-2025 55-70-7480KzfozmjrEqgkrw and vomiting (5 sources)Nausea and vomiting; Translations: [Nausea with vomiting, unspecified]Onset: 797990-37-6390FdvrixqqPeebwkftxve chest pain (1 source)Chest pain, unspecified; Translations: [Chest pain, unspecified]Onset: 56-00-6083VqkhiisnLqgvbespnti deficiencies (16 sources)Vitamin D deficiency; Translations: [Vitamin D deficiency, unspecified]Onset: 08-02-2021 Resolved: 11-56-5274NdkhgziWzjxfqexcrjzex (20 sources)Osteoarthritis; Translations: [DJD (degenerative joint disease)] Onset: 18-96-7239MgcwhmuGvqil aftercare (15 sources)Long-term current use of insulin; Translations: [nursing home (current) use of insulin]49-59-0798XehdodwxKidgr aftercare (9 sources)H/O: high risk medication; Translations: [Other nursing home (current) drug therapy]EpisodicOther aftercare (18 sources)Wound finding; Translations: [Encounter for other specified aftercare]91-11-9524VjzqvkraHwvzj diseases of kidney and ureters (9 sources)Renal osteodystrophy; Translations: [Renal osteodystrophy]Chronic Other endocrine disorders (9 sources)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; Translations: [Other hypoglycemia]ChronicOther endocrine disorders (20 sources)Hypoparathyroidism; Translations: [Hypoparathyroidism, unspecified] 20-02-6247JctflneUefzz endocrine disorders (7 sources)Hypoparathyroidism, unspecified; Translations: [Hypoparathyroidism] Onset: 86-00-0173QjktztkPcqhg gastrointestinal disorders (1 source)Dysphagia, unspecified; Translations: [Dysphagia, unspecified]Onset: 53-21-0982XuyixmskHcwhw inflammatory condition of skin (1 source)Pruritus, unspecifiedEpisodicOther injuries and conditions due to external causes (18 sources)Local infection of wound; Translations: [Other injury of unspecified body region, initial encounter]Onset: [id number] lower respiratory disease (9 sources)Dyspnea on exertion; Translations: [Dyspnea on exertion]EpisodicOther nervous system disorders (20 sources)Chronic pain; Translations: [Other chronic pain]Onset: 10-21-2022 43-79-3188SvcwvqoPrwls nervous system disorders (4 sources)Bilateral carpal tunnel syndrome; Translations: [Carpal tunnel syndrome, bilateral upper limbs]82-93-8315KrkkhqnMhruy nervous system disorders (6 sources)Paresthesia; Translations: [Paresthesia of skin]EpisodicOther nervous system disorders (1 source)Anesthesia of skinEpisodicOther nervous system disorders (1 source)Paresthesia of skinEpisodicOther nervous system disorders (6 sources)Tremor; Translations: [Tremor, unspecified]65-54-2088LhvmlkloQukij nervous system disorders (9 sources)Acute postoperative pain; Translations: [Other acute postprocedural pain]22-44-7389MoxrjwfhCaour non-traumatic joint disorders (9 sources)Lower limb joint arthritis; Translations: [Osteoarthrosis, unspecified whether generalized or localized, lower leg]Onset: 07-85-3188Tkrruin Other non-traumatic joint disorders (4 sources)Pain in left hip; Translations: [PAIN IN LEFT HIP]Onset: 07-08-2022 EpisodicOther nutritional; endocrine; and metabolic disorders (20 sources)Body mass index 40+ - severely obese; Translations: [Body mass index (BMI) 50.0-59.9, adult]44-24-8065WpblidhTcaqg nutritional; endocrine; and metabolic disorders (20 sources)Morbid obesity; Translations: [Morbid (severe) obesity due to excess calories]Onset: 815427-39-1956VvjdxvqHkubs nutritional; endocrine; and metabolic disorders (4 sources)Morbid (severe) obesity due to excess calories; Translations: [MORBID SEVERE OBES D/T EXCESS VANI]Onset: 99-09-5943AsazmeyHerls nutritional; endocrine; and metabolic disorders (2 sources)Body mass index (BMI) 45.0-49.9, adult; Translations: [BODY MASS INDEX BMI 45.0-49.9 ADULT]Onset: 10-93-3747MsvsrtoSpvfk nutritional; endocrine; and metabolic disorders (10 sources)Severe obesity; Translations: [Morbid (severe) obesity due to excess calories]20-82-7269FemrmczTpsrj nutritional; endocrine; and metabolic disorders (2 sources)Body mass index (BMI) 50.0-59.9, adultChronicOther nutritional; endocrine; and metabolic disorders (14 sources)Hypervitaminosis D; Translations: [Hypervitaminosis D]10-12-2023 ChronicOther nutritional; endocrine; and metabolic disorders (16 sources)Hyperuricemia; Translations: [Hyperuricemia without signs of inflammatory arthritis and tophaceous disease]42-84-3272NmbgmiwoFcctz upper respiratory disease (20 sources)Allergic rhinitis; Translations: [Allergic rhinitis due to other allergen]Onset: 160986-47-2802ZslqgqrTydsr upper respiratory disease (2 sources)Chronic rhinitis; Translations: [Chronic rhinitis]03-23-2860Idpygfx Other upper respiratory infections (20 sources)Chronic sinusitis; Translations: [Unspecified sinusitis (chronic)] Onset: 318527-49-4414AyqrxxmTvvvevpf codes; unclassified (2 sources)Obstructive sleep apnea (adult) (pediatric); Translations: [Obstructive sleep apnea (adult) (pediatric)]Onset: 41-62-0954NyzsardTxlqsjbk codes; unclassified (4 sources)Periodic leg movements of sleep ; Translations: [Periodic limb movement disorder]77-22-3166JcnfehbPmssrnmh codes; unclassified (1 source)Pain, unspecified; Translations: [Pain, unspecified]Onset: 08-29-2023 EpisodicRespiratory failure; insufficiency; arrest (adult) (6 sources)Dependence on supplemental oxygen; Translations: [Dependence on supplemental oxygen]89-09-3041DitwtdpAcnu and subcutaneous tissue infections (20 sources)Abscess; Translations: [Cutaneous abscess, unspecified]Onset: 383273-18-8591QnqrimgoTuzthwtjjcu; intervertebral disc disorders; other back problems (20 sources)Solitary sacroiliitis; Translations: [Sacroiliitis, not elsewhere classified]ChronicSpondylosis; intervertebral disc disorders; other back problems (9 sources)Cervicalgia; Translations: [Low back pain]EpisodicThyroid disorders (20 sources)Hypothyroidism; Translations: [Hypothyroidism, unspecified]Onset: 616152-51-9327KqmpsxkYwbhwugpkqvx (2 sources)Chest pain, unspecified / R07.9(ICD-9)Onset: 07-73-7619Cwglsvqslwtb (1 source)Shortness of breath / R06.02(ICD-9)Onset: 22-53-9439Dfxqqehcvggo (1 source)Supraventricular tachycardia / I47.1(ICD-9)Onset: 11-06-2017 Unclassified (1 source)Morbid (severe) obesity due to excess calories / E66.01(ICD-9)Onset: 51-28-1616Yzytgdjupnbf (1 source)CHRN KIDNEY DISEASE STG 3 UNSP; Translations: [CHRN KIDNEY DISEASE STG 3 UNSP]Onset: 83-15-9180Spttqjzqxfok (1 source)CONTACT W/AND (SUSP) EXPOS COVID-19; Translations: [CONTACT W/AND (SUSP) EXPOS COVID-19]Onset: 26-25-8328Eyvirutgfzuw (1 source)Emotional state findingOnset: 57-01-3071Wwxiojhbpryu (2 sources)Wound CheckOnset: 75-01-0126Ahpyhiqiasxi (1 source)Supraventricular tachycardia, unspecified; Translations: [Supraventricular tachycardia, unspecified]Onset: 94-72-4958Bjpybnvxxewr (1 source)Other pericardial effusion (noninflammatory); Translations: [Other pericardial effusion (noninflammatory)]Onset: 96-16-5984Anmiukizbxsg (1 source)Call office on Friday to schedule follow-up with your Primary Care Provider within 3-5 days of discharge. Past or Other Problems Problem ClassificationProblemDateDocumented DateEpisodic/ChronicBacterial infection; unspecified site (20 sources)Microbiologic culture positive; Translations: [Resistance to multiple antibiotics]Onset: 12-93-646687404081-87-9229QolcrarjKbuwcqtyvw and other anemia (1 source)Anemia, unspecified; Translations: [ANEMIA UNSPECIFIED]Onset: 93-01-8270DjjxyswxErtus of unknown origin (4 sources)Fever, unspecified; Translations: [FEVER UNSPECIFIED]Onset: 98-81-3179SbyaxpgvVepd wounds of head; neck; and trunk (20 sources)Wound of abdomen; Translations: [Unspecified open wound of abdominal wall, unspecified quadrant without penetration into peritoneal cavity, initial encounter]Onset: 985469-98-1124RkxgmaxyWznlf aftercare (1 source)Other terminologist (current) drug therapy; Translations: [OTH VASCULAR PHYSICIAN CURRENT DRUG THERAPY]Onset: 47-81-4474HcpocrmxVypyy aftercare (3 sources)nursing home (current) use of insulin; Translations: [VASCULAR PHYSICIAN CURRENT USE OF INSULIN]Onset: 05-49-9673QxdekcxfRomae connective tissue disease (1 source)Other enthesopathies, not elsewhere classifiedOnset: 10-22-2021 Resolved: 03-26-6687UxqpdotzTegqm connective tissue disease (2 sources)Pain of toe of left foot; Translations: [Pain in left toe(s)] 02-26-2614IluwmzlkMjtmn connective tissue disease (2 sources)Pain of toe of right foot; Translations: [Pain in right toe(s)] 95-40-6395EfbevuioGfeti connective tissue disease (8 sources)Lobular panniculitis; Translations: [Panniculitis, unspecified]Onset: 610990-15-2678SlxzbtxkAkcmj disorders of stomach and duodenum (20 sources)Gastroparesis syndrome; Translations: [Gastroparesis]Onset: 542666-30-1233ToyselhiYsaqi gastrointestinal disorders (2 sources)Dysphagia; Translations: [Dysphagia, unspecified]84-00-1812Hfjuszai Other injuries and conditions due to external causes (1 source)Other injury of unspecified body region, initial encounter; Translations: [Other injury of unspecified body region, initial encounter]Onset: 76-41-3471ZzmhzsdlVfopa lower respiratory disease (3 sources)Shortness of breath; Translations: [SHORTNESS OF BREATH]Onset: 45-77-1747LdedsoawWyqjw nervous system disorders (1 source)Other acute postprocedural pain; Translations: [Other acute postprocedural pain]Onset: 18-16-6973GzqhzbzeUevsn non-traumatic joint disorders (1 source)Pain in left shoulderOnset: 10-22-2021 Resolved: 61-99-3414GrhclfeaDalzg nutritional; endocrine; and metabolic disorders (5 sources)Hyperuricemia without signs of inflammatory arthritis and tophaceous disease; Translations: [Other abnormal blood chemistry]Onset: 03-17-2024 08-14-7998XpafshbyAhjsg upper respiratory infections (3 sources)Acute pharyngitis, unspecified; Translations: [ACUTE PHARYNGITIS UNSPECIFIED]Onset: 64-15-8608BlmlomajYxnmfuqnb (except that caused by tuberculosis or sexually transmitted disease) (2 sources)Pneumonia, unspecified organism; Translations: [Pneumonia, unspecified organism]Onset: 84-25-4870QodixocbZoibqunmm by nonmedicinal substances (5 sources)Spider bite wound; Translations: [Toxic effect of unspecified spider venom, accidental (unintentional), initial encounter]Onset: EpisodicResidual codes; unclassified (1 source)Acquired absence of other specified parts of digestive tract; Translations: [ACQ ABSENCE OTH PART DIGESTV TRACT]Onset: 50-35-6085Qvtakczp Unclassified (1 source)Supraventricular tachycardia, unspecified; Translations: [Supraventricular tachycardia, unspecified]Onset: 94-83-1522Ifqrzxtjhlca (1 source)Other pericardial effusion (noninflammatory); Translations: [Other pericardial effusion (noninflammatory)]Onset: 12-09-2024 Results Test NameValueInterpretationReference RangeFacilityGlucose (Bld) [Mass/Vol] Ordered By: Mery Trent on 42-60-9665Wnqacdl Blood, LTW262 mg/dLNOMS HealthcareLaboratory - Hematology and Cell countson 05-92-2986ZyG5d (Bld) [Mass fraction]8.3 %NOMS HealthcareNo Panel InformationOrdered By: Mery Trent on 64-74-8335YBWY HealthcareComplete Blood Count Auto Diffon 68-53-6905Noeqlchhh (Bld) [#/Vol]0.0 10*3/uLNormal0.0-0.2The [facility] Physician GroupComment on above:Result Comment: PERFORMED BY:[address] [place], [place] [phone] MEDICAL DIRECTORJHOANA GONZALEZ M.D.Performed By: #### MG, CBC, CMP ####[address] [address] USABasophils/100 WBC (Bld)0.7 %Normal.The [facility] Physician GroupComment on above:Performed By: #### MG, CBC, CMP ####[address] [address] USAEosinophils (Bld) [#/Vol]0.4 10*3/uLNormal0.0-0.45The [facility] Physician GroupComment on above: Performed By: #### MG, CBC, CMP ####[address] [address] USAEosinophils/100 WBC (Bld)9.4 %Normal.The [facility] Physician GroupComment on above:Performed By: #### MG, CBC, CMP ####[address] [address] USAErythrocyte distribution width (RBC) [Ratio]15.2 %Lqgybf14.9-15.3The [facility] Physician GroupComment on above:Performed By: #### MG, CBC, CMP ####[address] [address] USAHematocrit (Bld) [Volume fraction]30.1 %Low34.0-46.4The [facility] Physician GroupComment on above: Performed By: #### MG, CBC, CMP ####[address] [address] USAHemoglobin (Bld) [Mass/Vol]10.1 g/dLLow11.8-15.4The [facility] Physician GroupComment on above:Performed By: #### MG, CBC, CMP ####[place] [address] [place] Lymphocytes (Bld) [#/Vol]1.3 10*3/uLNormal1.00-4.8The [facility] Comment on above:Performed By: #### MG, CBC, CMP ####[place] [address] USALymphocytes/100 WBC (Bld)31.3 %Normal. The [facility] Physician GroupComment on above:Performed By: #### MG, CBC, CMP ####[address] (RBC) [Entitic mass]30.6 thRuzoxc27.7-34.3The [facility] Physician GroupComment on above:Performed By: #### MG, CBC, CMP ####[address] (RBC) [Entitic vol]91.5 hDLiefbt41-563Ath [facility] Physician GroupComment on above:Performed By: #### MG, CBC, CMP ####[place] [address] USAMean Corpuscular HGB Conc33.4 g/fWBudbhv11.0-35.0The [facility] Physician GroupComment on above:Performed By: #### MG, CBC, CMP ####[place] [address] USAMonocytes (Bld) [#/Vol]0.3 10*3/uLNormal 0.0-0.8The [facility] Physician GroupComment on above:Performed By: #### MG, CBC, CMP ####[place] [address] [place] Monocytes/100 WBC (Bld)7.5 %Normal.The [facility] Physician GroupComment on above:Performed By: #### MG, CBC, CMP ####[place] [address] USANeutrophils (Bld) [#/Vol]2.1 10*3/uLNormal 1.8-7.7The [facility] Physician GroupComment on above:Performed By: #### MG, CBC, CMP ####[place] [address] [place] Neutrophils/100 WBC (Bld)51.1 %Normal.The [facility] Physician GroupComment on above:Performed By: #### MG, CBC, CMP ####[place] [address] USANRBC%0.1 /100{WBC}Normal0-0.5The [facility] Physician GroupComment on above:Performed By: #### MG, CBC, CMP ####[place] [address] USAPlatelet mean volume (Bld) [Entitic vol]11.4 fLHigh6.3-10.7The [facility] Physician GroupComment on above:Performed By: #### MG, CBC, CMP ####[place] [address] USAPlatelets (Bld) [#/Vol]172 10*3/uLNormal 150-450The [facility] Physician GroupComment on above:Performed By: #### MG, CBC, CMP ####[place] [address] [place] RBC (Bld) [#/Vol]3.29 10*6/uLLow3.60-5.00The [facility] Physician GroupComment on above:Performed By: #### MG, CBC, CMP ####[place] [address] USAWBC (Bld) [#/Vol]4.0 10*3/uLNormal3.8-11.6The [facility] Physician GroupComment on above:Performed By: #### MG, CBC, CMP ####[place] [address] USAWhite Blood Count4.0 [CFU]/mLNormal3.8-11.6The [facility] Physician GroupComment on above:Performed By: #### MG, CBC, CMP ####[address] [address] USAComprehensive Metabolic Panelon 03-13-2025 Albumin [Mass/Vol]3.6 g/dLNormal3.5-5.7The [facility] Physician GroupComment on above:Performed By: #### MG, CBC, CMP ####[place] [address] USAAlbumin/Globulin [Mass ratio]1.3 {ratio}Normal The [facility] Physician GroupComment on above:Performed By: #### MG, CBC, CMP ####[place] [address] USAALP [Catalytic activity/Vol]49 U/RKplcvi06-746Qkn [facility] Physician GroupComment on above:Performed By: #### MG, CBC, CMP ####[place] [address] USAALT [Catalytic activity/Vol]11 U/LNormal7-52 The [facility] Physician GroupComment on above:Performed By: #### MG, CBC, CMP ####[place] [address] USAAnion gap [Moles/Vol]10.5 mmol/LNormal6.0-15.0The [facility] Physician GroupComment on above:Performed By: #### MG, CBC, CMP ####[place] [address] USAAST [Catalytic activity/Vol]19 U/PPqciuo06-06 The [facility] Physician GroupComment on above:Performed By: #### MG, CBC, CMP ####[place] [address] [place] Bilirubin [Mass/Vol]0.4 mg/dLNormal0.3-1.0The [facility] Physician GroupComment on above:Performed By: #### MG, CBC, CMP ####[place] [address] USACalcium [Mass/Vol]8.8 mg/dLNormal8.6-10.3The [facility] Physician GroupComment on above:Performed By: #### MG, CBC, CMP ####[place] [address] [place] Chloride [Moles/Vol]107 mmol/NQokhso39-618Kmg [facility]ician GroupComment on above:Performed By: #### MG, CBC, CMP ####[place] [address] USACO2 [Moles/Vol]23.8 mmol/MFnclar39.0-31.0The [facility] Physician GroupComment on above:Performed By: #### MG, CBC, CMP ####[address] Creatinine [Mass/Vol]1.47 mg/dLHigh0.60-1.20ThCaribou Memorial Hospital Physician GroupComment on above:Performed By: #### MG, CBC, CMP ####[place] [address] USACreatinine Clr Calc Vxyxnoew97.95NormBroward Health North Physician GroupComment on above:Performed By: #### MG, CBC, CMP ####[place] [address] [place] GFR/1.73 sq M.predicted MDRD (S/P/Bld) [Vol rate/Area]41.643 mL/min/{1.73_m2} NormalThe [facility] Physician GroupComment on above:Performed By: #### MG, CBC, CMP ####[place] [address] [place] Globulin (S) [Mass/Vol]2.7 g/dLNoECU Health North Hospital Physician [facility] MadisonComment on above:Performed By: #### MG, CBC, CMP ####[place] [address] USAGlucose [Mass/Vol]167 mg/hHDkdh57-374Etd [facility] Physician GroupComment on above:Result Comment: Random Glucose Reference Range is dependent on time and content of last meal. Glucose of more than 200 mg/dL in a nonstressed, ambulatory subject supports the diagnosis of Diabetes Mellitus. ADA recommended reference rangePerformed By: #### MG, CBC, CMP ####[address] [address] [place] Potassium [Moles/Vol]4.3 mmol/LNormal3.5-5.1The [facility] Physician GroupComment on above:Performed By: #### MG, CBC, CMP ####[place] [address] USAProtein [Mass/Vol]6.3 g/dLLow6.4-8.9The [facility] Physician GroupComment on above:Performed By: #### MG, CBC, CMP ####[place] [address] USASodium [Moles/Vol]137 mmol/OOqfsyq817-107Dvp [facility] Physician GroupComment on above: Performed By: #### MG, CBC, CMP ####[place] [address] USAUrea nitrogen [Mass/Vol]21 mg/dLNormalCaribou Memorial Hospital Physician GroupComment on above:Performed By: #### MG, CBC, CMP ####[place] [address] USAGlucose Poct Glucometerson 60-92-5325Sgaubvc [Mass/Vol]167 mg/dLNaval Hospital [facility] Physician [facility] MadisonComment on above:Result Comment: Random Glucose Reference Range is dependent on time and content of last meal. Glucose of more than 200 mg/dL in a nonstressed, ambulatory subject supports the diagnosis of Diabetes Chris litus.PERFORMED BY:[place] [address] [address] [place], [place] [phone] MEDICAL MARCOS GONZALEZ M.D.Performed By: #### GLULS ####Point of Care testing,Wzhbbqq3Nuo5: Cleaned MeterNoECU Health North Hospital Physician [facility] MadisonComment on above:Result Comment: PERFORMED BY:[place] [address] [address] [place], [place] [phone] MEDICAL MARCOS GONZALEZ M.D.Performed By: #### GLULS ####Point of Care testing,Glucose [Mass/Vol]126 mg/dLNormalThe [facility] Physician GroupComment on above:Result Comment: Random Glucose Reference Range is dependent on time and content of last meal. Glucose of more than 200 mg/dL in a nonstressed, ambulatory subject supports the diagnosis of Diabetes Mellitus.Performed By: #### GLULS ####Point of Care testing,Magnesiumon 30-58-8857Idfwwubos [Mass/Vol] 1.9 mg/dLNormal1.9-2.7The [facility] Physician GroupComment on above:Result Comment: PERFORMED BY:[address] [place], [place] [phone] MEDICAL MARCOS GONZALEZ M.D.Performed By: #### MG, CBC, CMP ####[address] [address] USABasic Metabolic Panelon 60-19-2819Zijeu gap [Moles/Vol]9.2 mmol/LNormal6.0-15.0The [facility] Physician GroupComment on above:Performed By: #### BMP, MG, CBC ####[address] [address] USACalcium [Mass/Vol]8.7 mg/dLNormal8.6-10.3The [facility] Physician GroupComment on above:Performed By: #### BMP, MG, CBC ####[address] [address] [place] Chloride [Moles/Vol]110 mmol/OIggz46-683Fji [facility] Physician GroupComment on above:Performed By: #### BMP, MG, CBC ####[address] [address] USACO2 [Moles/Vol]24.8 mmol/IXgnhvr94.0-31.0The [facility] Physician GroupComment on above:Performed By: #### BMP, MG, CBC ####[address] [address] [place] Creatinine [Mass/Vol]1.49 mg/dLHigh0.60-1.20The [facility] Physician GroupComment on above:Performed By: #### BMP, MG, CBC ####[place] [address] USACreatinine Clr Calc Kdswuflr80.91NormalThe [facility] Physician GroupComment on above:Performed By: #### BMP, MG, CBC ####[place] [address] [place] GFR/1.73 sq M.predicted MDRD (S/P/Bld) [Vol rate/Area]40.974 mL/min/{1.73_m2} NormalThe [facility] Physician GroupComment on above:Performed By: #### BMP, MG, CBC ####[address] Glucose [Mass/Vol]156 mg/wPLubj64-802Iim [facility] Physician GroupComment on above:Result Comment: Random Glucose Reference Range is dependent on time and content of last meal. Glucose of more than 200 mg/dL in a nonstressed, ambulatory subject supports the diagnosis of Diabetes Mellitus. ADA recommended reference rangePerformed By: #### BMP, MG, CBC ####[place] [address] USAPotassium [Moles/Vol]4.0 mmol/LNormal 3.5-5.1The [facility] Physician GroupComment on above:Performed By: #### BMP, MG, CBC ####[address] Sodium [Moles/Vol]140 mmol/EQevcpi865-032Pfe [facility] Physician GroupComment on above:Performed By: #### BMP, MG, CBC ####[place] [address] [facility] HOSPITALUrea nitrogen [Mass/Vol]24 mg/dLNormal7-25The [facility] Physician GroupComment on above:Performed By: #### BMP, MG, CBC ####[address] Complete Blood Count Auto Diffon 10-75-6618Npejrymcb (Bld) [#/Vol]0.0 10*3/uL Normal0.0-0.2The [facility] Physician GroupComment on above:Result Comment: PERFORMED BY:[address] [place], [place] [phone] MEDICAL DIRECTORJHOANA GONZALEZ M.D.Performed By: #### BMP, MG, CBC ####[place] [address] USABasophils/100 WBC (Bld)0.8 %Normal.The [facility] Comment on above:Performed By: #### BMP, MG, CBC ####[place] [address] USAEosinophils (Bld) [#/Vol]0.4 10*3/uL Normal0.0-0.45The [facility] Physician GroupComment on above:Performed By: #### BMP, MG, CBC ####[place] [address] USAEosinophils/100 WBC (Bld)9.6 %Normal.The [facility] Comment on above:Performed By: #### BMP, MG, CBC ####[place] [address] USAErythrocyte distribution width (RBC) [Ratio]15.1 %Bnpril67.9-15.3The [facility] Physician GroupComment on above: Performed By: #### BMP, MG, CBC ####[place] [address] USAHematocrit (Bld) [Volume fraction]28.6 %Low34.0-46.4 The [facility] Physician GroupComment on above:Performed By: #### BMP, MG, CBC ####[place] [address] [place] Hemoglobin (Bld) [Mass/Vol]9.5 g/dLLow11.8-15.4The [facility] Comment on above:Performed By: #### BMP, MG, CBC ####[address] [address] USALymphocytes (Bld) [#/Vol]1.4 10*3/uL Normal1.00-4.8The [facility] Physician GroupComment on above:Performed By: #### BMP, MG, CBC ####[address] [address] USALymphocytes/100 WBC (Bld)31.5 %Normal.The [facility] Comment on above:Performed By: #### BMP, MG, CBC ####[address] [address] [facility] (RBC) [Entitic mass]30.7 pgNormal 24.7-34.3The [facility] Physician GroupComment on above:Performed By: #### BMP, MG, CBC ####[address] [address] [facility] (RBC) [Entitic vol]92.8 qYInqika56-036Noh [facility] Comment on above:Performed By: #### BMP, MG, CBC ####[place] [address] USAMean Corpuscular HGB Conc33.0 g/dL Tgjqgl79.0-35.0The [facility] Physician GroupComment on above:Performed By: #### BMP, MG, CBC ####[place] [address] USAMonocytes (Bld) [#/Vol]0.4 10*3/uLNormal0.0-0.8The [facility] Physician GroupComment on above:Performed By: #### BMP, MG, CBC ####[address] [address] USAMonocytes/100 WBC (Bld)8.4 % Normal.The [facility] Physician GroupComment on above:Performed By: #### BMP, MG, CBC ####[place] [address] [place] Neutrophils (Bld) [#/Vol]2.2 10*3/uLNormal1.8-7.7The [facility] Comment on above:Performed By: #### BMP, MG, CBC ####[place] [address] USANeutrophils/100 WBC (Bld)49.7 %Normal. The [facility] Physician GroupComment on above:Performed By: #### BMP, MG, CBC ####[place] [address] USANRBC% 0.1 /100{WBC}Normal0-0.5The [facility] Physician GroupComment on above:Performed By: #### BMP, MG, CBC ####[place] [address] USAPlatelet mean volume (Bld) [Entitic vol]10.8 fLHigh 6.3-10.7The [facility] Physician GroupComment on above:Performed By: #### BMP, MG, CBC ####[place] [address] USAPlatelets (Bld) [#/Vol]163 10*3/mUUepwcz893-340Bby [facility] Comment on above:Performed By: #### BMP, MG, CBC ####[place] [address] USARBC (Bld) [#/Vol]3.09 10*6/uLLow 3.60-5.00The [facility] Physician GroupComment on above:Performed By: #### BMP, MG, CBC ####[place] [address] USAWBC (Bld) [#/Vol]4.4 10*3/uLNormal3.8-11.6The [facility] Comment on above:Performed By: #### BMP, MG, CBC ####[place] [address] USAWhite Blood Count4.4 [CFU]/mLNormal 3.8-11.6The [facility] Physician GroupComment on above:Performed By: #### BMP, MG, CBC ####[address] [place] [address] USAGlucose Poct Glucometerson 59-81-3936Cmwyzog9Zsc2: Cleaned MeterNoECU Health North Hospital Physician GroupComment on above:Result Comment: PERFORMED BY:[place] [address] [address] [place], [place] [phone] MEDICAL MARCOS GONZALEZ M.D.Performed By: #### GLULS ####Point of Care testing,Glucose [Mass/Vol]210 mg/dLNaval Hospital Pensacola Physician GroupComment on above:Result Comment: Random Glucose Reference Range is dependent on time and content of last meal. Glucose of more than 200 mg/dL in a nonstressed, ambulatory subject supports the diagnosis of Diabetes Mellitus.Performed By: #### GLULS ####Point of Care testing,Glucose [Mass/Vol]202 mg/dLNaval Hospital Pensacola Physician GroupComment on above:Result Comment: Random Glucose Reference Range is dependent on time and content of last meal. Glucose of more than 200 mg/dL in a nonstressed, ambulatory subject supports the diagnosis of Diabetes Mellitus.PERFORMED BY:[address] [place], [place] [phone] MEDICAL MARCOS GONZALEZ M.D.Performed By: #### GLULS ####Point of Care testing,Glucose [Mass/Vol]252 mg/dLNaval Hospital Pensacola Physician GroupComment on above:Result Comment: Random Glucose Reference Range is dependent on time and content of last meal. Glucose of more than 200 mg/dL in a nonstressed, ambulatory subject supports the diagnosis of Diabetes Mellitus.PERFORMED BY:[address] [place]DE[place], [place] [phone] MEDICAL MARCOS GONZALEZ M.D.Performed By: #### GLULS ####Point of Care testing, Glucose [Mass/Vol]143 mg/dLNaval Hospital Pensacola Physician GroupComment on above: Result Comment: Random Glucose Reference Range is dependent on time and content of last meal. Glucose of more than 200 mg/dL in a nonstressed, ambulatory subject supports the diagnosis of Diabetes Mellitus.PERFORMED BY:[address] [place], [place] [phone] MEDICAL DIRECTORJHOANA GONZALEZ M.D.Performed By: #### GLULS ####Point of Care testing,Magnesiumon 31-33-4960Ctcybdjpe [Mass/Vol]1.9 mg/dLNormal1.9-2.7The [facility] Physician GroupComment on above:Result Comment: PERFORMED BY:[address] [place], [place] [phone] MEDICAL MARCOS GONZALEZ M.D.Performed By: #### BMP, MG, CBC ####[address] [address] USABasic Metabolic Panelon 95-20-2953Npbct gap [Moles/Vol]12.9 mmol/LNormal6.0-15.0The [facility] Physician GroupComment on above:Performed By: #### MG, CBC, BMP ####[address] [address] USACalcium [Mass/Vol]8.8 mg/dLNormal8.6-10.3The [facility] Physician GroupComment on above: Performed By: #### MG, CBC, BMP ####[address] [address] USAChloride [Moles/Vol]112 mmol/LKbil18-646Qzf [facility] Physician GroupComment on above:Performed By: #### MG, CBC, BMP ####[address] [address] USACO2 [Moles/Vol]24.3 mmol/TAoudny58.0-31.0The [facility] Physician GroupComment on above:Performed By: #### MG, CBC, BMP ####[address] [address] USACreatinine [Mass/Vol]1.52 mg/dLHigh0.60-1.20 The [facility] Physician GroupComment on above:Performed By: #### MG, CBC, BMP ####[address] [place] [address] [place] Creatinine Clr Calc Ekwoozfz79.96NormalThe [facility] Physician GroupComment on above:Performed By: #### MG, CBC, BMP ####[address] [place] [id number] USAGFR/1.73 sq M.predicted MDRD (S/P/Bld) [Vol rate/Area]40.005 mL/min/{1.73_m2}NormalThe [facility] Physician GroupComment on above:Performed By: #### MG, CBC, BMP ####[address] [place] [address] USAGlucose [Mass/Vol]113 mg/yOQymr37-008Hqy [facility] Physician GroupComment on above:Result Comment: Random Glucose Reference Range is dependent on time and content of last meal. Glucose of more than 200 mg/dL in a nonstressed, ambulatory subject supports the diagnosis of Diabetes Mellitus. ADA recommended reference rangePerformed By: #### MG, CBC, BMP ####[place] [address] [place] Potassium [Moles/Vol]4.2 mmol/LNormal3.5-5.1The [facility] Physician GroupComment on above:Performed By: #### MG, CBC, BMP ####[place] [address] USASodium [Moles/Vol]145 mmol/FNmmjam966-910Rru [facility] Physician GroupComment on above:Performed By: #### MG, CBC, BMP ####[address] USAUrea nitrogen [Mass/Vol]27 mg/dLHigh7-25The [facility] Physician GroupComment on above:Performed By: #### MG, CBC, BMP ####[address] USAComplete Blood Count Auto Diffon 03-11-2025 Basophils (Bld) [#/Vol]0.0 10*3/uLNormal0.0-0.2The [facility] Comment on above:Result Comment: PERFORMED BY:[address] [place], [place] [phone] MEDICAL DIRECTORJHOANA GONZALEZ M.D.Performed By: #### MG, CBC, BMP ####[address] [address] USABasophils/100 WBC (Bld)0.6 %Normal.The [facility] Physician GroupComment on above:Performed By: #### MG, CBC, BMP ####[address] [address] USAEosinophils (Bld) [#/Vol]0.4 10*3/uLNormal0.0-0.45The [facility] Physician GroupComment on above:Performed By: #### MG, CBC, BMP ####[address] [address] USAEosinophils/100 WBC (Bld)9.6 %Normal.The [facility] Physician GroupComment on above:Performed By: #### MG, CBC, BMP ####[address] [address] USAErythrocyte distribution width (RBC) [Ratio]15.5 %High11.9-15.3The [facility] Physician GroupComment on above:Performed By: #### MG, CBC, BMP ####[address] [address] [place] Hematocrit (Bld) [Volume fraction]30.3 %Low34.0-46.4The [facility] Physician GroupComment on above:Performed By: #### MG, CBC, BMP ####[address] [address] USAHemoglobin (Bld) [Mass/Vol] 10.0 g/dLLow11.8-15.4The [facility] Physician GroupComment on above:Performed By: #### MG, CBC, BMP ####[place] [address] USALymphocytes (Bld) [#/Vol]1.2 10*3/uLNormal1.00-4.8The [facility] Physician GroupComment on above:Performed By: #### MG, CBC, BMP ####[place] [address] USALymphocytes/100 WBC (Bld)26.5 %Normal.The [facility] Physician GroupComment on above:Performed By: #### MG, CBC, BMP ####[address] (RBC) [Entitic mass]31.0 ctYisjur55.7-34.3The [facility] Physician GroupComment on above:Performed By: #### MG, CBC, BMP ####[address] (RBC) [Entitic vol]93.9 cADkivbv50-884Pli [facility] Physician GroupComment on above:Performed By: #### MG, CBC, BMP ####[address] Corpuscular HGB Conc33.0 g/vNCosady83.0-35.0The [facility] Physician GroupComment on above:Performed By: #### MG, CBC, BMP ####[address] Monocytes (Bld) [#/Vol]0.3 10*3/uLNormal0.0-0.8The [facility] Comment on above:Performed By: #### MG, CBC, BMP ####[place] [address] USAMonocytes/100 WBC (Bld)6.9 %Normal.The [facility] Physician GroupComment on above:Performed By: #### MG, CBC, BMP ####[place] [address] [place] Neutrophils (Bld) [#/Vol]2.6 10*3/uLNormal1.8-7.7The [facility] Comment on above:Performed By: #### MG, CBC, BMP ####[address] [address] USANeutrophils/100 WBC (Bld)56.4 %Normal. The [facility] Physician GroupComment on above:Performed By: #### MG, CBC, BMP ####[address] [address] USANRBC% 0.1 /100{WBC}Normal0-0.5The [facility] Physician GroupComment on above:Performed By: #### MG, CBC, BMP ####[address] [address] USAPlatelet mean volume (Bld) [Entitic vol]11.3 fLHigh 6.3-10.7The [facility] Physician GroupComment on above:Performed By: #### MG, CBC, BMP ####[address] [address] USAPlatelets (Bld) [#/Vol]171 10*3/zIIwbkgh353-987Muw [facility] Comment on above:Performed By: #### MG, CBC, BMP ####[address] [address] USARBC (Bld) [#/Vol]3.23 10*6/uLLow 3.60-5.00The [facility] Physician GroupComment on above:Performed By: #### MG, CBC, BMP ####[address] [address] USAWBC (Bld) [#/Vol]4.7 10*3/uLNormal3.8-11.6The [facility] Comment on above:Performed By: #### MG, CBC, BMP ####[address] [address] USAWhite Blood Count4.7 [CFU]/mLNormal 3.8-11.6The [facility] Physician GroupComment on above:Performed By: #### MG, CBC, BMP ####[address] [address] USAGlucose Poct Glucometerson 01-86-1749Mhbvlzq1Lex5: Cleaned MeterNormalThe [facility] Physician GroupComment on above:Result Comment: PERFORMED BY:[address] M[address] ARGUELLESKanDAVID, [place] [phone] MEDICAL MARCOS GONZALEZ M.D.Performed By: #### GLULS ####Point of Care testing,Glucose [Mass/Vol]135 mg/dLNaval Hospital Pensacola Physician GroupComment on above:Result Comment: Random Glucose Reference Range is dependent on time and content of last meal. Glucose of more than 200 mg/dL in a nonstressed, ambulatory subject supports the diagnosis of Diabetes Mellitus.Performed By: #### GLULS ####Point of Care testing,Utgluom3Wwe7: Cleaned MeterNaval Hospital Pensacola Physician GroupComment on above:Result Comment: PERFORMED BY:[address] [place], [place] [phone] MEDICAL MARCOS GONZALEZ M.D.Performed By: #### GLULS ####Point of Care testing,Glucose [Mass/Vol]192 mg/dLNaval Hospital Pensacola Physician GroupComment on above:Result Comment: Random Glucose Reference Range is dependent on time and content of last meal. Glucose of more than 200 mg/dL in a nonstressed, ambulatory subject supports the diagnosis of Diabetes Mellitus.Performed By: #### GLULS ####Point of Care testing,Glucose [Mass/Vol]150 mg/dLNaval Hospital Pensacola Physician GroupComment on above:Result Comment: Random Glucose Reference Range is dependent on time and content of last meal. Glucose of more than 200 mg/dL in a nonstressed, ambulatory subject supports the diagnosis of Diabetes Mellitus.PERFORMED BY:[address] [place], [place] [phone] MEDICAL MARCOS GONZALEZ M.D.Performed By: #### GLULS ####Point of Care testing,Glucose [Mass/Vol]120 mg/dLNaval Hospital Pensacola Physician GroupComment on above:Result Comment: Random Glucose Reference Range is dependent on time and content of last meal. Glucose of more than 200 mg/dL in a nonstressed, ambulatory subject supports the diagnosis of Diabetes Mellitus.PERFORMED BY:[address] [place], [place] [phone] MEDICAL DIRECTORJHOANA GONZALEZ M.D.Performed By: #### GLULS ####Point of Care testing, Magnesiumon 23-28-5955Cefmlffqr [Mass/Vol]1.9 mg/dLNormal1.9-2.7The [facility] Physician GroupComment on above:Result Comment: PERFORMED BY:[address] [place], [place] [phone] MEDICAL DIRECTORJHOANA GONZALEZ M.D.Performed By: #### MG, CBC, BMP ####[address] [address] USAA1C with Estimated Average Gluon 64-99-0632Lxyocil [Mass/Vol]240 mg/dLNormalThe [facility] Physician GroupComment on above:Result Comment: PERFORMED BY:[address] [place] [place], [place] [phone] MEDICAL MARCOS GONZALEZ M.D.Performed By: #### BMP, MG, CBC, A1C WTH eA ####[address] [address] SEWGuO0u (Bld) [Mass fraction]10.0 %High4.3-5.6The [facility] Physician GroupComment on above:Result Comment: Increased risk for diabetes: 5.7 - 6.4 diabetes: >6.4 glycemic control for adults with diabetes: <7.0Performed By: #### BMP, MG, CBC, A1C WTH eA ####[address] [address] USABasic Metabolic Panelon 01-13-8439Tbhah gap [Moles/Vol]13.4 mmol/LNormal 6.0-15.0The [facility] Physician GroupComment on above:Performed By: #### BMP, MG, CBC, A1C WTH eA ####[address] [address] USACalcium [Mass/Vol]8.8 mg/dLNormal8.6-10.3The [facility] Physician GroupComment on above:Performed By: #### BMP, MG, CBC, A1C WTH eA ####[address] [place] [address] USAChloride [Moles/Vol] 110 mmol/SEjct56-152Ged [facility] Physician GroupComment on above:Performed By: #### BMP, MG, CBC, A1C WTH eA ####[place] [address] USACO2 [Moles/Vol]23.8 mmol/XYjjouh73.0-31.0The [facility] Physician GroupComment on above:Performed By: #### BMP, MG, CBC, A1C WTH eA ####[place] [address] [place] Creatinine [Mass/Vol]1.78 mg/dLHigh0.60-1.20The [facility] Physician GroupComment on above:Performed By: #### BMP, MG, CBC, A1C WTH eA ####[place] [address] USACreatinine Clr Calc Pharmacy 39.27NormalThe [facility] Physician GroupComment on above:Performed By: #### BMP, MG, CBC, A1C WTH eA ####[place] [id number] USAGFR/1.73 sq M.predicted MDRD (S/P/Bld) [Vol rate/Area]33.100 mL/min/{1.73_m2}NormalThe [facility] Physician GroupComment on above:Performed By: #### BMP, MG, CBC, A1C WTH eA ####[place] [address] USAGlucose [Mass/Vol]202 mg/rKGtqd78-520Izg [facility] Physician GroupComment on above:Result Comment: Random Glucose Reference Range is dependent on time and content of last meal. Glucose of more than 200 mg/dL in a nonstressed, ambulatory subject supports the diagnosis of Diabetes Mellitus. ADA recommended reference rangePerformed By: #### BMP, MG, CBC, A1C WTH eA ####[address] Potassium [Moles/Vol]4.2 mmol/LNormal3.5-5.1The [facility] Physician GroupComment on above:Performed By: #### BMP, MG, CBC, A1C WTH eA ####[place] [address] USASodium [Moles/Vol]143 mmol/L Tfyxao139-470Cbp [facility] Physician GroupComment on above:Performed By: #### BMP, MG, CBC, A1C WTH eA ####[address] StreetUrea nitrogen [Mass/Vol]37 mg/dLHigh7-25The [facility] Physician GroupComment on above:Performed By: #### BMP, MG, CBC, A1C WTH eA ####[address] Complete Blood Count Auto Diffon 76-06-3039Wnvpfrjbf (Bld) [#/Vol]0.0 10*3/uL Normal0.0-0.2The [facility] MadisonComment on above:Result Comment: PERFORMED BY:[address] [place], [place] [phone] MEDICAL DIRECTORJHOANA GONZALEZ M.D.Performed By: #### BMP, MG, CBC, A1C WTH eA ####[place] [address] USABasophils/100 WBC (Bld)0.7 %Normal.The [facility] Physician GroupComment on above:Performed By: #### BMP, MG, CBC, A1C WTH eA ####[address] Eosinophils (Bld) [#/Vol]0.4 10*3/uLNormal0.0-0.45The [facility] Comment on above:Performed By: #### BMP, MG, CBC, A1C WTH eA ####[place] [address] USAEosinophils/100 WBC (Bld)7.1 %Normal.The [facility] Physician GroupComment on above:Performed By: #### BMP, MG, CBC, A1C WTH eA ####[place] [address] USAErythrocyte distribution width (RBC) [Ratio]15.3 % Coiphp87.9-15.3The [facility] Physician GroupComment on above:Performed By: #### BMP, MG, CBC, A1C WTH eA ####[place] [address] USAHematocrit (Bld) [Volume fraction]29.9 %Low34.0-46.4 The [facility] Physician GroupComment on above:Performed By: #### BMP, MG, CBC, A1C WTH eA ####[place] [address] USAHemoglobin (Bld) [Mass/Vol]9.7 g/dLLow11.8-15.4The [facility] Comment on above:Performed By: #### BMP, MG, CBC, A1C WTH eA ####[place] [address] USALymphocytes (Bld) [#/Vol]1.5 10*3/uLNormal1.00-4.8The [facility] Physician GroupComment on above: Performed By: #### BMP, MG, CBC, A1C WTH eA ####[place] [address] USALymphocytes/100 WBC (Bld)29.7 %Normal. The [facility] Physician GroupComment on above:Performed By: #### BMP, MG, CBC, A1C WTH eA ####[place] [address] USAMCH (RBC) [Entitic mass]30.4 jhJvesgb57.7-34.3The [facility] Comment on above:Performed By: #### BMP, MG, CBC, A1C WTH eA ####[place] [address] USAMCV (RBC) [Entitic vol]93.7 sFYjuqwo10-913Wfl [facility]ician GroupComment on above:Performed By: #### BMP, MG, CBC, A1C WTH eA ####[place] [address] USAMean Corpuscular HGB Conc32.4 g/bKErrzfs57.0-35.0The [facility] Physician GroupComment on above:Performed By: #### BMP, MG, CBC, A1C WTH eA ####[place] [address] [place] Monocytes (Bld) [#/Vol]0.3 10*3/uLNormal0.0-0.8The [facility] Comment on above:Performed By: #### BMP, MG, CBC, A1C WTH eA ####[place] [address] USAMonocytes/100 WBC (Bld)6.7 %Normal.The [facility] Physician GroupComment on above:Performed By: #### BMP, MG, CBC, A1C WTH eA ####[place] [address] USANeutrophils (Bld) [#/Vol]2.8 10*3/uLNormal1.8-7.7The [facility] Physician GroupComment on above:Performed By: #### BMP, MG, CBC, A1C WTH eA ####[place] [address] [place] Neutrophils/100 WBC (Bld)55.8 %Normal.The [facility] Physician GroupComment on above:Performed By: #### BMP, MG, CBC, A1C WTH eA ####[place] [address] USANRBC%0.1 /100{WBC}Normal0-0.5The [facility] Physician GroupComment on above:Performed By: #### BMP, MG, CBC, A1C WTH eA ####[address] [place] [address] [facility] Platelet mean volume (Bld) [Entitic vol]11.0 fLHigh6.3-10.7The [facility] Physician GroupComment on above:Performed By: #### BMP, MG, CBC, A1C WTH eA ####[place] [address] [facility] Platelets (Bld) [#/Vol]178 10*3/eXSccqzk657-475Qzx [facility] Comment on above:Performed By: #### BMP, MG, CBC, A1C WTH eA ####[place] [address] USARBC (Bld) [#/Vol]3.19 10*6/uLLow3.60-5.00The [facility] MadisonComment on above:Performed By: #### BMP, MG, CBC, A1C WTH eA ####[place] [address] USAWBC (Bld) [#/Vol]5.0 10*3/uLNormal3.8-11.6The [facility] Physician GroupComment on above:Performed By: #### BMP, MG, CBC, A1C WTH eA ####[place] [address] [facility] White Blood Count5.0 [CFU]/mLNormal3.8-11.6The [facility] MadisonComment on above:Performed By: #### BMP, MG, CBC, A1C WTH eA ####[place] [address] USAECG 12 lead ECGon 03-10-2025 ECG 12 lead ECGNoECU Health North Hospital Physician [facility] MadisonGlucose Poct Glucometerson 51-46-8077Gllgwhx [Mass/Vol]101 mg/dLNoECU Health North Hospital Physician [facility] MadisonComment on above:Result Comment: Random Glucose Reference Range is dependent on time and content of last meal. Glucose of more than 200 mg/dL in a nonstressed, ambulatory subject supports the diagnosis of Diabetes Mellitus.PERFORMED BY:[address] [place], [place] [phone] MEDICAL MARCOS GONZALEZ M.D.Performed By: #### GLULS ####Point of Care testing,Wsbzymi3Zoe8: Cleaned MeterNoECU Health North Hospital Physician [facility] MadisonComment on above:Result Comment: PERFORMED BY:[address] ANDERSharleneKanDAVID, [place] [phone] MEDICAL MARCOS GONZALEZ M.D.Performed By: #### GLULS ####Point of Care testing,Glucose [Mass/Vol]200 mg/dLNaval Hospital Pensacola Physician GroupComment on above:Result Comment: Random Glucose Reference Range is dependent on time and content of last meal. Glucose of more than 200 mg/dL in a nonstressed, ambulatory subject supports the diagnosis of Diabetes Mellitus.Performed By: #### GLULS ####Point of Care testing,Glucose [Mass/Vol]257 mg/dLNaval Hospital Pensacola Physician GroupComment on above:Result Comment: Random Glucose Reference Range is dependent on time and content of last meal. Glucose of more than 200 mg/dL in a nonstressed, ambulatory subject supports the diagnosis of Diabetes Mellitus.PERFORMED BY:[address] ANDERSharleneKanDAVID, [place] [phone] MEDICAL MARCOS GONZALEZ M.D.Performed By: #### GLULS ####Point of Care testing,Magnesiumon 03-10-2025 Magnesium [Mass/Vol]2.0 mg/dLNormal1.9-2.7The [facility] Physician GroupComment on above:Result Comment: PERFORMED BY:[address] [place], [place] [phone] MEDICAL MARCOS GONZALEZ M.D.Performed By: #### BMP, MG, CBC, A1C WTH eA ####[address] [address] [facility] HOSPITALAlanine aminotransferase [Enzymatic activity/volume] in Serum or PlasmaOrdered By: Jorge Early on 19-27-2925LEP [Catalytic activity/Vol]17 U/LNfirsthealth7-52[facility]'S HospitalComment on above:Performed By: #### CBC, CMP ####[address] [address] USAAlbumin [Mass/volume] in Serum or Plasma by Bromocresol green (BCG) dye binding methoOrdered By: Jorge Early on 80-88-5285Zztnydw BCG dye [Mass/Vol]4.2 g/dL3.5-5.7FThe Surgical Hospital at SouthwoodsAlkaline phosphatase [Enzymatic activity/volume] in Serum or Plasma Ordered By: Jorge Early on 97-85-0419EHD [Catalytic activity/Vol]50 U/LNormal 34-104[facility]S HospitalComment on above:Performed By: #### CBC, CMP ####[place] [address] [facility] Appearance of UrineOrdered By: Jorge Early on 33-48-4442Gkbuvzvjkw (U)Clear NormalClearFThe Surgical Hospital at SouthwoodsComment on above:Order Comment: Name Collection Type:: Clean-Voided MidstreamPerformed By: #### ADDONUAPLUS ####[place] [address] [facility] Aspartate aminotransferase [Enzymatic activity/volume] in Serum or PlasmaOrdered By: Jorge Early on 38-38-6671SZJ [Catalytic activity/Vol]22 U/TRnbcel73-77 [facility] HospitalComment on above:Performed By: #### CBC, CMP ####[place] [address] [facility] Bacteria [Presence] in Urine by AutomatedOrdered By: Jorge Early on 03-09-2025 Bacteria Auto Ql (U)None seen [HPF]None SeenAkron Children'S Hospital Basophils [#/volume] in Blood by Automated countOrdered By: Jorge Early on 97-02-6190Apukacsqb (Bld) [#/Vol]0.0 10*3/uLNormal0.0-0.2FThe Surgical Hospital at SouthwoodsComment on above:Result Comment: PERFORMED BY:[address] [place], [place] [phone] MEDICAL DIRECTORJHOANA GONZALEZ M.D.Performed By: #### CBC, CMP ####[address] [address] USABasophils/100 leukocytes in Blood by Automated countOrdered By: Jorge Early on 47-00-1258Gkgdxiyfh/100 WBC (Bld)0.7 %Normal.[facility]'S HospitalComment on above:Performed By: #### CBC, CMP ####[place] [address] USABilirubin Test strip Ql (U)Ordered By: Jorge Early on 03-09-2025 Bilirubin Ql (U)NegativeNegativeAkron Children'S HospitalBilirubin.total [Mass/volume] in Serum or PlasmaOrdered By: Jorge Early on 76-17-9916Kpwdksvoh [Mass/Vol]0.6 mg/dLNormal0.3-1.0[facility]'S HospitalComment on above:Performed By: #### CBC, CMP ####[place] [address] USABioFire Not Detectedon 44-26-5076IbsLmrd Not DetectedNot detectedNormalNot DetecteThe [facility] Physician GroupComment on above:Result Comment: This is a duplicate RP2.1 COVID (PCR) result to be used for statistical tracking purpose only.PERFORMED BY:[address] [place], [place] [phone] MEDICAL DIRECTORJHOANA GONZALEZ M.D.Performed By: #### BIOFIRECOVNOTDE, RESP PANEL UPP. ####[address] [address] USABlood Cultureon 24-95-5509Jrrfzmor identified Cx Nom (Bld)NO GROWTH 5 DAYS PERFORMED BY: [facility] [address] [place] [id number] PATHOLOGIST REFRIGERATION PERSON JHOANA GONZALEZ M.D.NormalThe [facility] Physician GroupComment on above: Performed By: #### LACTIC, CRP, CUBLD, ESR ####[place] [address] USABacteria identified Cx Nom (Bld)NO GROWTH 5 DAYS PERFORMED BY: [facility] [address] [place] [place] [address] PATHOLOGIST REFRIGERATION PERSON JHOANA GONZALEZ M.D.NormalThe [facility] Physician GroupComment on above: Performed By: #### LACTIC, CRP, CUBLD, ESR ####[place] [address] [place] [address] USAC reactive protein [Mass/volume] in Serum or PlasmaOrdered By: Jorge Early on 70-86-8553JJQ [Mass/Vol]2.3 mg/dLHigh 0.0-0.5FThe Surgical Hospital at SouthwoodsC-Reactive Proteinon 67-19-8953S- Reactive Protein2.3 mg/dLHigh0.0-0.5The [facility]ician [facility] MadisonComment on above:Result Comment: PERFORMED BY:[place] [address] [place] [place], [place] [phone] MEDICAL DIRECTORJHOANA GONZALEZ M.D.Performed By: #### LACTIC, CRP, CUBLD, ESR ####[place] [address] [place] [address] USACOVID-19 Detected/Not DetectedOrdered By: Jorge Early on 01-30-6382AFXB-CoV-2 (COVID-19) RNA CHILO+non-probe Ql (Nph) Not detectedNot DetectOhioHealth Shelby HospitalComment on above:This is a duplicate RP2.1 COVID (PCR) result to be used for statistical tracking purpose only.CT abdomen pelvis wo conon 17-51-1061LE abdomen pelvis wo conNormal The [facility]ician [facility] MadisonCalcium [Mass/volume] in Serum or PlasmaOrdered By: Jorge Early on 79-51-0632Kbdocca [Mass/Vol]9.5 mg/dLNormal8.6-10.3FThe Surgical Hospital at SouthwoodsComment on above:Performed By: #### CBC, CMP ####[place] [address] [place] [address] [place] Capillary blood glucose measurement by glucometer (mass/volume)Ordered By: Jorge Early on 90-55-2328Jzxkqnc [Mass/Vol]251 mg/dLNoOhio Valley HospitalComment on above:Random Glucose Reference Range is dependent on time and content of last meal. Glucose of more than 200 mg/dL in a nonstressed, ambulatory subject supports the diagnosis of Diabetes Mellitus.Result Comment: Random Glucose Reference Range is dependent on time and content of last meal. Glucose of more than 200 mg/dL in a nonstressed, ambulatory subject supports the diagnosis of Diabetes Mellitus.PERFORMED BY:[address] [place], [place] [id number] MEDICAL DIRECTORJHOANA GONZALEZ M.D.Performed By: #### GLULS ####Point of Care testing, Carbon dioxide, total [Moles/volume] in Serum or PlasmaOrdered By: Jorge Early on 31-74-4650PC4 [Moles/Vol]22.4 mmol/TJtorlr78.0-31.0[facility] Children'S HospitalComment on above:Performed By: #### CBC, CMP ####[address] [address] USAChloride [Moles/volume] in Serum or PlasmaOrdered By: Jorge Early on 40-19-5030Fsnvuidi [Moles/Vol]103 mmol/UFxmwto05-830ZmvdcdzczAkron Children'S HospitalComment on above:Performed By: #### CBC, CMP ####[address] [address] USAColor of Urine by AutoOrdered By: Jorge Early on 11-10-0412Eencg (U)Light-yellowNormalYSt. Francis HospitalComment on above: Order Comment: Name Collection Type:: Clean-Voided MidstreamPerformed By: #### ADDONUAPLUS ####[place] [id number] USAComplete Blood Count Auto Diffon 28-71-7142Mshf Corpuscular HGB Conc 32.6 g/vEIdpdin77.0-35.0The [facility] Physician GroupComment on above:Performed By: #### CBC, CMP ####[address] [address] USAMonocytes/100 WBC (Bld)16.18 %Normal0.00-20.00The [facility] MadisonComment on above:Performed By: #### CBC, CMP ####[address] [address] USANRBC%0.0 /100{WBC} Normal0-0.5The [facility] Health MadisonComment on above:Performed By: #### CBC, CMP ####[address] [address] [facility] White Blood Count6.4 [CFU]/mLNormal3.8-11.6The [facility] Health MadisonComment on above:Performed By: #### CBC, CMP ####[address] [address] USAComprehensive Metabolic Panelon 03-09-2025 Albumin [Mass/Vol]4.2 g/dLNormal3.5-5.7The [facility] Physician GroupComment on above:Performed By: #### CBC, CMP ####[address] [address] USACreatinine Clr Calc Wfdtedfu10.84NormalThe [facility]ician [facility] Health MadisonComment on above:Result Comment: PERFORMED BY:[address] [place], [place] [phone] MEDICAL MARCOS GONZALEZ M.D.Performed By: #### CBC, CMP ####[address] [address] USAGFR/1.73 sq M.predicted MDRD (S/P/Bld) [Vol rate/Area]29.487 mL/min/{1.73_m2}NormalThe [facility] MadisonComment on above:Performed By: #### CBC, CMP ####[address] [address] USACreatinine [Mass/volume] in Serum or PlasmaOrdered By: Jorge Early on 92-76-7933Ijuohgxjdp [Mass/Vol]1.96 mg/dLHigh 0.60-1.20[facility]'S HospitalComment on above:Performed By: #### CBC, CMP ####[address] [address] USADipstick and Microscopicon 59-10-8813Ctwcmori,UrineNone SeenNormalNone Seen The [facility] Physician GroupComment on above:Order Comment: Name Collection Type:: Clean-Voided MidstreamPerformed By: #### ADDONUAPLUS ####[address] [address] USABilirubin,Urine NegativeNormalNegativeThe [facility] Physician GroupComment on above:Order Comment: Name Collection Type:: Clean-Voided MidstreamPerformed By: #### ADDONUAPLUS ####[address] [address] USAGlucose Ql (U)>=NormalNormalThe [facility] Physician GroupComment on above:Order Comment: Name Collection Type:: Clean-Voided MidstreamPerformed By: #### ADDONUAPLUS ####[address] [address] USAHyaline Casts,UrineNoneNormal0-8The [facility] Physician GroupComment on above:Order Comment: Name Collection Type:: Clean-Voided MidstreamPerformed By: #### ADDONUAPLUS ####[address] [address] USAMucus,UrineRareNormalThe [facility] Comment on above:Order Comment: Name Collection Type:: Clean-Voided Midstream Result Comment: PERFORMED BY:[place] [address] [address] [place], [place] [phone] MEDICAL MARCOS GONZALEZ M.D.Performed By: #### ADDONUAPLUS ####[address] [address] USANitrite,UrineNegativeNormalNegativeThe [facility] Physician GroupComment on above:Order Comment: Name Collection Type:: Clean- Voided MidstreamPerformed By: #### ADDONUAPLUS ####[address] [place] [address] USAOccult Blood,UrineNegativeNormal NegativeThe [facility] Wayne Physician GroupComment on above:Order Comment: Name Collection Type:: Clean-Voided MidstreamResult Comment: PERFORMED BY:[address] [place] [address] [place], [place] [phone] MEDICAL DIRECTORJHOANA GONZALEZ M.D.Performed By: #### ADDONUAPLUS ####[address] [address] [place] Protein,UrineTraceNormalNegativeThe [facility] Wayne Physician GroupComment on above: Order Comment: Name Collection Type:: Clean-Voided MidstreamPerformed By: #### ADDONUAPLUS ####[address] [address] USARBC,Yacfv4-0Vteelw8-5Rkg [facility] Physician GroupComment on above: Order Comment: Name Collection Type:: Clean-Voided MidstreamPerformed By: #### ADDONUAPLUS ####[address] [address] USASpecificy Hall Summit,Urine1.840Fmsoqp7.001-1.030The [facility] Physician GroupComment on above:Order Comment: Name Collection Type:: Clean-Voided MidstreamPerformed By: #### ADDONUAPLUS ####[address] [address] USASquamous Epithelial Cell,Gapcz5-3Tmidpl9-6Plc [facility] Physician GroupComment on above:Order Comment: Name Collection Type:: Clean-Voided MidstreamPerformed By: #### ADDONUAPLUS ####[address] [address] USAUrobilinogen,UrineNormalNormal NormalThe [facility] Physician GroupComment on above:Order Comment: Name Collection Type:: Clean-Voided MidstreamPerformed By: #### ADDONUAPLUS ####[address] [address] [place] WBC,Sfmxb6-8Fkqsyc5-9Dmt [facility] Physician GroupComment on above:Order Comment: Name Collection Type:: Clean-Voided MidstreamPerformed By: #### ADDONUAPLUS ####[place] [address] USAEosinophils [#/volume] in Blood by Automated countOrdered By: Jorge Early on 16-01-3591Gccqruwtcxi (Bld) [#/Vol]0.1 10*3/uLNormal0.0-0.45[facility]'S HospitalComment on above:Performed By: #### CBC, CMP ####[place] [address] [place] Eosinophils/100 leukocytes in Blood by Automated countOrdered By: Jorge Early on 42-52-3024Hcqovlpicdx/100 WBC (Bld)1.4 %Normal.[facility]'S HospitalComment on above:Performed By: #### CBC, CMP ####[place] [address] USAEpithelial cells.squamous [#/area] in Urine sediment by Automated countOrdered By: Jorge Early on 16-67-0762Xngfksagmy cells.squamous Auto (Urine sed) [#/Area]1-2 [HPF]0-2 [facility]S HospitalErythrocyte Sedimentation Rateon 20-06-8450OVT (Bld) [Velocity]109 mm/hHigh0-29The [facility] Physician GroupComment on above: Result Comment: PERFORMED BY:[address] [place], [place] [phone] MEDICAL MARCOS GONZALEZ M.D.Performed By: #### LACTIC, CRP, CUBLD, ESR ####[address] [address] USAErythrocyte distribution width [Ratio] by Automated countOrdered By: Jorge Early on 36-95-0431Pvxvcrlchgi distribution width (RBC) [Ratio]15.1 %Bfnvvl52.9-15.3FThe Surgical Hospital at SouthwoodsComment on above:Performed By: #### CBC, CMP ####[place] [address] USAErythrocyte sedimentation rate by Photometric methodOrdered By: Jorge Early on 75-12-2955WXU Photometric method (Bld) [Velocity]109 mm/hrHigh0-29[facility] Erythrocytes [#/area] in Urine sediment by Automated countOrdered By: Jorge Early on 34-24-7678UER Auto (Urine sed) [#/Area]1-2 [HPF]0-4FThe Surgical Hospital at SouthwoodsErythrocytes [#/volume] in Blood by Automated countOrdered By: Jorge Early on 70-27-5930GQG (Bld) [#/Vol]3.40 10*6/uLLow3.60-5.00[facility]S HospitalComment on above:Performed By: #### CBC, CMP ####[facility] [address] [place] [id number] [place] Glomerular filtration rate [Volume Rate/Area] in Serum, Plasma or Blood by CreatinineOrdered By: Jorge Early on 21-86-3141Vttpiakgxb filtration rate [Volume Rate/Area] in Serum, Plasma or Blood by Ehqajaqvak57.487 mL/MinAkron Children'S HospitalGlucose [Mass/volume] in Serum or PlasmaOrdered By: Jorge Early on 38-99-3302Zdputob [Mass/Vol]418 mg/mARzwe49-399IqsuhgmkcAkron Children'S HospitalComment on above:ADA recommended reference rangeRandom Glucose Reference Range is dependent on time and content of last meal. Glucose of more than 200 mg/dL in a nonstressed, ambulatory subject supports the diagnosisof Diabetes Mellitus.Result Comment: Random Glucose Reference Range is dependent on time and content of last meal. Glucose of more than 200 mg/dL in a nonstressed, ambulatory subject supports the diagnosis of Diabetes Mellitus. ADA recommended reference rangePerformed By: #### CBC, CMP ####[facility] [address] [place] [address] USAGlucose [Mass/volume] in Urine by Test stripOrdered By: Jorge Early on 40-99-7504Gvzwvil Test strip (U) [Mass/Vol]>=1000 mg/dLHighNormalAkron Children'S HospitalHematocrit [Volume Fraction] of Blood by Automated countOrdered By: Jorge Early on 39-06-0988Dmxmkxrqrp (Bld) [Volume fraction]31.9 %Low34.0-46.4FThe Surgical Hospital at SouthwoodsComment on above:Performed By: #### CBC, CMP ####[place] [place] [address] USAHemoglobin Test strip Ql (U)Ordered By: Jorge Early on 87-68-6988Mraeyfxebz Ql (U)NegativeNegative [facility]S HospitalHemoglobin [Mass/volume] in BloodOrdered By: Jorge Early on 75-05-8804Mwlxlkhuoc (Bld) [Mass/Vol]10.4 g/dLLow11.8-15.4 [facility]S HospitalComment on above:Performed By: #### CBC, CMP ####[address] [address] USAHyaline casts [#/area] in Urine sediment by Automated countOrdered By: Jorge Early on 94-71-4931Kniqutb casts Auto (Urine sed) [#/Area]None [LPF]0-8[facility]'S HospitalKetones [Presence] in Urine by Test stripOrdered By: Jorge Early on 21-38-9465Bmypzdy Ql (U)1+NormalNegativeAkron Children'S Hospital Comment on above:Order Comment: Name Collection Type:: Clean-Voided Midstream Performed By: #### ADDONUAPLUS ####[address] [address] USALactate [Moles/volume] in Serum or PlasmaOrdered By: Jorge Early on 32-86-2733Sqnwkfv [Moles/Vol]0.7 mmol/LNormal0.5-1.9[facility]S HospitalComment on above:Lactic Acid reference range has been updated to 0.5 1.9 mmol/L and the critical range of 2.0 or greater.Result Comment: Lactic Acid reference range has been updated to 0.5 ? 1.9 mmol/L and the critical range of 2.0 or greater.PERFORMED BY:[place] [address] [address] [place], [place] [phone] MEDICAL DIRECTORJHOANA GONZALEZ M.D.Performed By: #### LACTIC, CRP, CUBLD, ESR ####[place] [address] [place] Leukocyte esterase [Presence] in Urine by Test stripOrdered By: Jorge Early on 47-68-4620Vxwuehafw esterase Test strip Ql (U)NegativeNormalNegativeAkron Children'S HospitalComment on above:Order Comment: Name Collection Type:: Clean-Voided MidstreamPerformed By: #### ADDONUAPLUS ####[place] [address] USALeukocytes [#/area] in Urine sediment by Automated countOrdered By: Jorge Early on 62-89-3340HZG Auto (Urine sed) [#/Area]1-2 [HPF]0-4FThe Surgical Hospital at SouthwoodsLeukocytes [#/volume] corrected for nucleated erythrocytes in Blood by Automated counOrdered By: Jorge Early on 24-14-7743ENN corrected for nucl RBC Auto (Bld) [#/Vol]6.4 10*3/uL3.8-11.6FThe Surgical Hospital at SouthwoodsLeukocytes [#/volume] in Blood by Automated countOrdered By: Jorge Early on 14-72-0525FRN (Bld) [#/Vol]6.4 10*3/uLNormal3.8-11.6FThe Surgical Hospital at SouthwoodsComment on above:Performed By: #### CBC, CMP ####[place] [address] USALymphocytes [#/volume] in Blood by Automated countOrdered By: Jorge Early on 16-59-7897Sdbnqekifvf (Bld) [#/Vol]0.9 10*3/uLLow1.00-4.8[facility]S HospitalComment on above:Performed By: #### CBC, CMP ####[place] [address] [place] Lymphocytes/100 leukocytes in Blood by Automated countOrdered By: Jorge Early on 38-48-8459Xthxvbrmdbn/100 WBC (Bld)14.1 %Normal.[facility]'S HospitalComment on above:Performed By: #### CBC, CMP ####[place] [address] [facility] [Entitic mass] by Automated countOrdered By: Jorge Early on 96-42-6415IOL (RBC) [Entitic mass] 30.6 bhGrztqi68.7-34.3FThe Surgical Hospital at SouthwoodsComment on above: Performed By: #### CBC, CMP ####[place] [address] [facility]HC Auto (RBC) [Mass/Vol]Ordered By: Jorge Early on 52-47-0646TDRO (RBC) [Mass/Vol]32.6 g/dL32.0-35.0[facility]S HospitalMCV [Entitic volume] by Automated countOrdered By: Jorge Early on 31-70-9578EQD (RBC) [Entitic vol]93.8 cIXciqwl99-552JxupsrtnuAkron Children'S HospitalComment on above:Performed By: #### CBC, CMP ####[place] [address] USAMonocyte distribution width [Entitic volume] in Blood by AutomatedOrdered By: Jorge Early on 03-09-2025 Monocyte distribution width Auto (Bld) [Entitic vol]16.18 %0.00-20.00[facility]S HospitalMonocytes [#/volume] in Blood by Automated countOrdered By: Jorge Early on 37-77-2493Whmpyitoo (Bld) [#/Vol]0.3 10*3/uLNormal0.0-0.8 [facility]S HospitalComment on above:Performed By: #### CBC, CMP ####[place] [address] [facility] Monocytes/100 leukocytes in Blood by Automated countOrdered By: Jorge Early on 53-38-5804Yueapumje/100 WBC (Bld)5.3 %Normal.[facility] Comment on above:Performed By: #### CBC, CMP ####[place] [address] USAMucus [Presence] in Urine by Automated Ordered By: Jorge Early on 98-60-5487Yszlp Auto Ql (U)Rare [LPF][facility]'S HospitalNeutrophils [#/volume] in Blood by Automated countOrdered By: Jorge Early on 60-10-0543Rmbdmlolhop (Bld) [#/Vol]5.0 10*3/uLNormal1.8-7.7 [facility] HospitalComment on above:Performed By: #### CBC, CMP ####[place] [address] [place] Neutrophils/100 leukocytes in Blood by Automated countOrdered By: Jorge Early on 12-43-7574Opmejexuuxo/100 WBC (Bld)78.5 %Normal.[facility]S HospitalComment on above:Performed By: #### CBC, CMP ####[place] [address] USANitrite Test strip Ql (U) Ordered By: Jorge Early on 72-17-9280Xypzvee Ql (U)NegativeNegativeAkron Children'S HospitalNo Panel InformationOrdered By: Jorge Early on 86-05-3559Dfcpdxyx Creatinine Clearance (Chem38.84[facility]S HospitalNucleated erythrocytes [Presence] in Blood by Automated countOrdered By: Jorge Early on 81-03-1251Rjmemnmyu RBC Auto Ql (Bld)0.0 /100{WBC}0-0.5FThe Surgical Hospital at SouthwoodsPlatelet mean volume [Entitic volume] in Blood by Automated countOrdered By: Jorge Early on 83-34-9668Nrhjdspd mean volume (Bld) [Entitic vol]10.6 fLNormal6.3-10.7FThe Surgical Hospital at SouthwoodsComment on above:Performed By: #### CBC, CMP ####[place] [address] USAPlatelets [#/volume] in Blood by Automated count Ordered By: Jorge Early on 93-58-3353Yitimaduv (Bld) [#/Vol]197 10*3/uLNormal 150-450[facility]S HospitalComment on above:Performed By: #### CBC, CMP ####[place] [address] [place] Potassium [Moles/volume] in Serum or PlasmaOrdered By: Jorge Early on 10-39-0040Puppcgcdx [Moles/Vol]5.0 mmol/LNormal3.5-5.1FThe Surgical Hospital at SouthwoodsComment on above:Performed By: #### CBC, CMP ####[place] [address] USAProtein Test strip (U) [Mass/Vol]Ordered By: Jorge Early on 49-80-2221Evuhmty (U) [Mass/Vol]Trace mg/dLHighNegativeAkron Children'S HospitalProtein [Mass/volume] in Serum or PlasmaOrdered By: Jorge Early on 17-80-6273Wjtnzjq [Mass/Vol]7.6 g/dLNormal 6.4-8.9[facility] HospitalComment on above:Performed By: #### CBC, CMP ####[place] [address] [place] Respiratory (Upper) Panel, PCRon 42-12-1310Pqctwmqmhyq (Upper) Panel, PCRNormal The [facility] Physician GroupComment on above:Performed By: #### BIOFIRECOVNOTDE, RESP PANEL UPP. ####[place] [address] USARespiratory pathogens DNA and RNA panel - Nasopharynx by CHILO with non-probe detectionOrdered By: Jorge Early on 20-34-2643Znzaeuivbcy pathogens DNA and RNA panel CHILO+non-probe (Nph)[facility] Hospitalerum globulin measurement by calculation (mass/volume) Ordered By: Jorge Early on 76-19-9785Wuryxxbh (S) [Mass/Vol]3.4 g/dLNormal [facility] HospitalComment on above:Performed By: #### CBC, CMP ####[place] [address] USASerum or plasma albumin/globulin mass ratioOrdered By: Jorge Early on 03-09-2025 Albumin/Globulin [Mass ratio]1.2 {ratio}NormalAkron Children'S Hospital Comment on above:Performed By: #### CBC, CMP ####[address] [address] USASerum or plasma anion gap determinationOrdered By: Jorge Early on 99-46-9497Mdavu gap [Moles/Vol]17.6 mmol/LHigh6.0-15.0[facility]S HospitalComment on above:Performed By: #### CBC, CMP ####[address] [address] USASodium [Moles/volume] in Serum or PlasmaOrdered By: Jorge Early on 02-52-1228Pebsmd [Moles/Vol]138 mmol/CJtodru265-097FzlglgnawAkron Children'S HospitalComment on above:Performed By: #### CBC, CMP ####[address] [address] USASpecific gravity Test strip (U) [Rel density]Ordered By: Jorge Early on 09-79-9737Zcmtoqus gravity (U) [Rel density]1.0161.001-1.030[facility]S HospitalUrea nitrogen [Mass/volume] in Serum or PlasmaOrdered By: Jorge Early on 35-04-2396Znrq nitrogen [Mass/Vol]43 mg/dLHigh7-25[facility]S HospitalComment on above:Performed By: #### CBC, CMP ####[address] [address] USAUrobilinogen Test strip (U) [Mass/Vol]Ordered By: Jorge Early on 37-26-7578Udlpraaxuovd (U) [Mass/Vol]Normal mg/dLNormalAkron Children'S HospitalpH of Urine by Test stripOrdered By: Jorge Early on 84-03-6807tR (U)6.0 [pH]Normal5.0-9.0[facility]S HospitalComment on above:Order Comment: Name Collection Type:: Clean-Voided MidstreamPerformed By: #### ADDONUAPLUS ####[address] [facility] [place] [address] WRG86hj 84-79-369623KxggMD Naty Howell MA Please reassure her that her echo shows only a small effusion and that it has not worsened Advised patient of Dr. Valadez findings. Patient verbalized understanding. [facility] Medical CenterGlucose (Bld) [Mass/Vol]Ordered By: Mery Trent on 09-07-9720Zrpwzjj Blood, CKY276 mg/dLNOND HealthcareLaboratory - Hematology and Cell countson 61-08-4494JiA1s (Bld) [Mass fraction]8.9 %NOMS HealthcareNo Panel InformationOrdered By: Mery Trent on 58-49-6371YYIC HealthcareFollow-Upon 85-40-8119Qbslba-[id number] [facility],Authumn D 1970 F Date Provider Department Center 12/09/2024 271-REBECA VALADEZ CARD [facility] Family History Problem Relation Age of Onset Angina Mother Heart attack Mother Heart attack Maternal Grandfather Family Status - Relation Status Age at Mother Maternal Grandfather Level of Service:54020 NM OFFICE/OUTPATIENT ESTABLISHED MOD MDM 30 [facility] HospitalOrders Onlyon 50-05-7393Exughj [id number] [facility],Authumn D 1970 F Date Provider Department Center 12/08/2024 [id number], HISTORICAL BH CARD [facility] Family History Problem Relation Age of Onset Angina Mother Heart attack Mother Heart attack Maternal Grandfather Family Status - Relation Status Age at Mother Maternal GrandfatherNormalOhioHealth Grove City Methodist HospitalBUNon 11-22-2024 Urea nitrogen [Mass/Vol]38 mg/dLHigh10-22ProPeterson Regional Medical CenterComment on above:Performed By: #### 37413-1 #### [facility] ([id number]) [address] [place] [address], FIRST FLOOR [place], [place] [address]JLUCEMCKGK, SERUMon 81-60-5724Xoofucojjp [Mass/Vol]1.88 mg/dL High0.40-1.00ProMedica Elkhart HospitalComment on above:Result Comment: METHOD TRACEABLE TO IDND STANDARDPerformed By: #### 94788-4 #### [facility] ([id number]) [address] [place] [address]ZKT/1.73 sq M.predicted among non-blacks MDRD (S/P/Bld) [Vol rate/Area]31 mL/min/{1.73_m2}Low>=60ProPeterson Regional Medical CenterComment on above: Result Comment: Reported eGFR is based on the CKD-EPI 2020 equation that does not use a race coefficient.Performed By: #### 73412-2 #### [facility] ([id number]) [address] [place] [address]QPHPMEOHXI, TROUGHon 41-12-7673NFETQSNAUW TAVCOJ97.8 ug/mL Normal5.0-20.0UC Medical CenterComment on above:Performed By: #### 18258-2 #### [facility] ([id number]) [address] [place] [address]XRBdt 56-93-7144Xqsp nitrogen [Mass/Vol]29 mg/dLHigh5-23 UC Medical CenterComment on above:Performed By: #### 96573-7 #### [facility] ([id number]) [address] [place] [address]XWBCSOFXHQ, SERUMon 36-51-3192Kxpvhohkxg [Mass/Vol]0.99 mg/dL Normal0.40-1.00UC Medical CenterComment on above:Result Comment: METHOD TRACEABLE TO [facility] STANDARDPerformed By: #### 45304-9 #### [facility] ([id number]) [address] [place] [address]XWT/1.73 sq M.predicted among non-blacks MDRD (S/P/Bld) [Vol rate/Area]67 mL/min/{1.73_m2}Normal>=60ProPeterson Regional Medical CenterComment on above:Result Comment: Reported eGFR is based on the CKD-EPI 2020 equation that does not use a race coefficient.Performed By: #### 93959-3 #### [facility] ([id number]) [address] [facility], [place], [place] [address]LYUZWBXAJU, TROUGHon 88-39-9503SPPSLPTTVD CXOHTO72.3 ug/mL Normal5.0-20.0ProMedica Gole[facility] Valley Cottage HospitalComment on above:Performed By: #### 51016-6 #### [facility] ([id number]) [address], [place], [place] [address]Pkzbz Cultureon 81-12-6443Baguimao identified Cx Nom (U)No Growth 2 Days PERFORMED BY: [address] [place] [id number] PATHOLOGIST REFRIGERATION PERSON JHOANA GONZALEZ M.D.NormalThe Unc Health Wayne Physician GroupComment on above: Performed By: #### CUU ####[facility] [address] [place] [address] USAUrine cultureOrdered By: Kamran Chatterjee on 11-09-2024 Bacteria identified Cx Nom (U)No Growth 2 DaysAkron Children'S Hospital Urine Cultureon 81-05-0837Niguuboh identified Cx Nom (U)NormalAdventhealth Zephyrhills Physician GroupComment on above:Performed By: #### CUU ####[address] [place] [address] USAUrine cultureOrdered By: Kamran Chatterjee on 22-85-9333Ymfneaya identified Cx Nom (U)Urine cultureAkron Children'S HospitalBacteria identified Cx Nom (U)2 DaysAkron Children'S Hospital30on 26-31-332298Oyj patient is Moderately Stable - Low risk [...] - Adult Goal: Maintains hematologic stability Outcome: ProgressingNormalUniversity Wyandot Memorial HospitalCBWilson [facility] Center 10-11-2024 Erythrocyte distribution width (RBC) [Ratio]14.8 %Tlurkr45.5-15.0UnRegency Hospital ToledoComment on above:Performed By: #### [id number] #### [facility] ([facility]) [address] [place], [place] [address]BXRKDXWOOYK MEAN CORPUSCULAR HEMOGLOBIN CONCENTRATION (G/DL) BY OZGCXGVSJ65.0 g/fSRolrzw42.0-35.0UnRegency Hospital ToledoComment on above:Performed By: #### [id number] #### [facility] ([facility]) [address] [place], [place] [address]Xjtbtiwzjd (Bld) [Volume fraction]26.9 %Low36.0-45.0UnRegency Hospital ToledoComment on above:Performed By: #### [id number] #### [facility] ([facility]) [address] [place], [place] [address]Zwcfcbhfky (Bld) [Mass/Vol]8.6 g/dLLow12.0-15.0UnRegency Hospital ToledoComment on above:Performed By: #### [id number] #### [facility] ([facility]) [address] [place], [place] [address]ULZ (RBC) [Entitic mass]30.5 qgRzadxo86.0-33.0UnRegency Hospital ToledoComment on above:Performed By: #### [id number] #### [facility] ([facility]) [address] [facility] CENTERSharlene [place], [place] [address]UQU (RBC) [Entitic vol]95.4 sCTjexwz53.0-98.0UnRegency Hospital ToledoComment on above:Performed By: #### [id number] #### [facility] ([facility]) [address] [place], [place] [address]GHKMSBKFK (10*3/UL) IN BLOOD AUTOMATED [id number] 10*3/uLNormal 150-400UnRegency Hospital ToledoComment on above:Performed By: #### [id number] #### [facility] ([facility]) [address] [place], [place] [address]SOP (Bld) [#/Vol]2.82 10*6/uLLow3.80-5.00UnRegency Hospital ToledoComment on above:Performed By: #### [id number] #### [facility] ([facility]) [address] [place], [place] [address]DOI (Bld) [#/Vol]5.66 10*3/uLNormal4.00-10.60UnRegency Hospital ToledoComment on above:Performed By: #### [id number] #### [facility] ([facility]) [address] [place], [place] [address]CHXFUZUZjt 93-78-6553NYGNLBHBUMX gone over with patient and all questions answered at this time. Patient encouraged to call if any new questions/concerns arise.NormalUnRegency Hospital ToledoNURSNOTEThe findings from this face to face encounter [...] % ON ROOM AIR WITH AMBULATION. Dx: PNANormalUniversity Wyandot Memorial HospitalPOCT GLUCOSE METER UNSOLICITED RESULTSon 08-27-0643Hbgaqwt [Mass/Vol]318 mg/wSUdwb71-811KbxtunrugaRegency Hospital ToledoComment on above:Order Comment: Waived Testing in the ED is performed under the ED CLIA certificate #[id number].Result Comment: [email or web address] Performed By: #### [id number] ####[facility] ([facility])[address] [place], [place] [address]Ifjkgyi [Mass/Vol]232 mg/rZRsox04-466JvdhbqtlmgRegency Hospital ToledoComment on above:Order Comment: Waived Testing in the ED is performed under the ED CLIA certificate #[id number].Result Comment: [email or web address] Performed By: #### [id number] #### [facility] ([facility]) [address] [place], [place] [address]18vy [id number]: Pain - Adult Goal: Verbalizes/displays adequate comfort [...] and behaviors that affect risk of falls Davis fall precautions as indicated by assessment Educate [...] Monitor labs and assess patient for signs a (more content not included)...Normal [facility]30Daily Case Management Update Multidisciplinary rounds have been completed. Barriers to Discharge: nearly medically ready/discharge pulled today. Await clarification on medications. Dc Plan : Home, resume [facility]. TG called Rusty @ [employer] [facility] agreeable to provide Home O2. Scripts/Orders/Progress Notes reviewed with Rusty per phone. Rusty aware that pt lives in [facility]. Await Script Dx to be fixed [...] Click Score: PT Recommendations: OT Recommendations: New Consults:[facility]30The patient is Moderately Stable - Low risk [...] level or baseline comfort level Outcome: Progressing .NormalUnRegency Hospital ToledoBASIC METABOLIC PANELon 10-10-2024 Anion gap [Moles/Vol]12 mmol/LNormal7-20UnRegency Hospital Toledo Comment on above:Performed By: #### [id number] #### [facility] ([facility]) [address] [place] [place], [place] [address]Ulchjss [Mass/Vol]8.1 mg/dLLow8.6-10.3UnRegency Hospital ToledoComment on above:Performed By: #### [id number] #### [facility] ([facility]) [address] [place], [place] [address]Yobmmfpv [Moles/Vol]109 mmol/WKnzv56-532TmuqpmxunbRegency Hospital ToledoComment on above:Performed By: #### [id number] #### [facility] ([facility]) [address] [place], [place] [address]FO3 [Moles/Vol]24 mmol/WBzejzr24-19GxbkkngtalRegency Hospital ToledoComment on above:Performed By: #### [id number] #### [facility] ([facility]) [address] [place], [place] [address]Qqrrlnsiwp [Mass/Vol]1.46 mg/dLHigh0.60-1.20UnRegency Hospital ToledoComment on above:Performed By: #### [id number] #### [facility] ([facility]) [address] [place], [place] [address]MMWAIOUBHX FILTRATION RATE ML/MIN/1.73 SQ M.PUTFMUFXI59.0 mL/min/1.73m*2Low>60.0UnRegency Hospital ToledoComment on above:Result Comment: The [facility]???s estimated glomerular filtration rate (eGFR) will [...] potential consequences that do not disproportionately affect anyone group of individuals.Performed By: #### [id number] #### [facility] ([facility]) [address] [place], [place] [address]Eoapjgu [Mass/Vol]119 mg/gAUjqs46-483BxahfdftmfRegency Hospital ToledoComment on above:Performed By: #### [id number] #### [facility] ([facility]) [address] [place], [place] [address]Rokdcwahy [Moles/Vol]3.5 mmol/LNormal3.5-5.1UnRegency Hospital ToledoComment on above:Performed By: #### [id number] #### [facility] ([facility]) [address] [place], [place] [address]Sanfys [Moles/Vol]141 mmol/OKyxuot156-554UyuefxslwhRegency Hospital ToledoComment on above:Performed By: #### [id number] #### [facility] ([facility]) [address] [place], [place] [address]Irhc nitrogen [Mass/Vol]55 mg/dLHigh7-25UnRegency Hospital ToledoComment on above:Performed By: #### [id number] #### [facility] ([facility]) [address] [place], [place] [address]KDGM NITROGEN/CREATININE (MASS RATIO) IN SER/PLAS37.7Normal [facility] HospitalComment on above:Performed By: #### [id number] #### [facility] ([facility]) [address] [place], [place] [address]DRJVOOELEY AND HEMATOCRIT, BLOODon 42-14-6690Paucgljnej (Bld) [Volume fraction]26.2 %Low36.0-45.0UnRegency Hospital ToledoComment on above:Performed By: #### [id number] ####[facility] ([facility])[address] [place], [place] [address]Ywaqvelbap (Bld) [Mass/Vol]8.5 g/dLLow12.0-15.0UnRegency Hospital ToledoComment on above:Performed By: #### [id number] ####[facility] ([facility] [place], [place] [address]VDCKHJSUmc 10-10-2024 NURSNOTEPt was to discharge today but is delayed by home O2 order and a med that needs changed, IV access d/c'd per order earlier, MD aware of all of this, pt agreeable and understanding. No further issues noted.NormalUnRegency Hospital ToledoPOCT GLUCOSE METER UNSOLICITED RESULTSon 30-87-5867Eapdkhk [Mass/Vol]289 mg/pNNvyg77-761HkktslrebpRegency Hospital ToledoComment on above:Order Comment: Waived Testing in the ED is performed under the ED CLIA certificate #[id number].Result Comment: [email or web address] By: #### [id number] ####[facility] ([facility])[address] [place], [place] [address]Akizfwb [Mass/Vol]320 mg/yKAkrk83-981WnkpzzxfrpRegency Hospital ToledoComment on above:Order Comment: Waived Testing in the ED is performed under the ED CLIA certificate #[id number].Result Comment: [email or web address] By: #### [id number] ####[facility] ([facility])[address] [place], [place] [address]Wmkuqcd [Mass/Vol]338 mg/qZOavg96-930XvtzdosxhtOhioHealth Grove City Methodist HospitalComment on above:Order Comment: Waived Testing in the ED is performed under the ED CLIA certificate #[id number].Result Comment: [email or web address] By: #### [id number] #### [facility] ([facility]) [address] [place], [place] [address]Khxmnvk [Mass/Vol]131 mg/wLOpaj94-020UnztbtkbwtRegency Hospital ToledoComment on above:Order Comment: Waived Testing in the ED is performed under the ED CLIA certificate #[id number].Result Comment: [email or web address] Performed By: #### [id number] #### [facility] ([facility]) [address] [place], [place] [address]aw 15-31-[address]Ziinoqs: Pain - Adult Goal: Verbalizes/displays adequate comfort level or baseline comfort level Outcome: Progressing Problem: Safety - Adult Goal: Free from fall injury Outcome: Progressing Flowsheets (Taken 10/09/20241999) Free from fall injury: Assess patient frequently for physical needs Identify cognitive and physical deficits and behaviors that affect risk of falls Davis fall precautions as indicated by assessment Educate [...] maintained or improved Outcome: Progressing Flowsheets (Taken 10/09/20241939) Care Plan - Patient's Chronic Conditions and [...] clinical goals for the shift include VSS, safetyNormalUniversity of [facility]30Problem: Chronic Conditions and Co-morbidities Goal: Patient's chronic [...] with appropriate resources Outcome: Progressing Flowsheets (Taken 10/09/2024819) Discharge to home or other facility with [...] not make progress toward the following goals. NormalUnRegency Hospital ToledoBASIC METABOLIC PANELon 17-72-3693Wkvuj gap [Moles/Vol]14 mmol/LNormal7-20UnRegency Hospital ToledoComment on above:Performed By: #### [id number] #### [facility] ([facility]) [address] [place] [address]Imbowsd [Mass/Vol]7.9 mg/dLLow8.6-10.3UnRegency Hospital ToledoComment on above:Performed By: #### [id number] #### [facility] ([facility]) [address] [place] [address]Anlymlrn [Moles/Vol]107 mmol/ILwvrrh88-357ZaymcfzzzfRegency Hospital ToledoComment on above:Performed By: #### [id number] #### [facility] ([facility]) [address] [place] [address]CS9 [Moles/Vol]20 mmol/SQzq21-99TqimxpkbwqRegency Hospital ToledoComment on above:Performed By: #### [id number] #### [facility] ([facility]) [address] [place] [address]Ljmxqfxitf [Mass/Vol]1.67 mg/dLHigh0.60-1.20UnRegency Hospital ToledoComment on above:Performed By: #### [id number] #### [facility] ([facility]) [address] [place] [address]INAQVRMVZB FILTRATION RATE ML/MIN/1.73 SQ M.NUWRCBRPM02.7 mL/min/1.73m*2Low>60.0UnRegency Hospital ToledoComment on above:Result Comment: [facility]???s estimated glomerular filtration rate (eGFR) will [...] potential consequences that do not disproportionately affect anyone group of individuals.Performed By: #### [id number] #### [facility] ([facility]) [address] [place] [place], [place] [address]Ibowlzr [Mass/Vol]303 mg/oQJpdb55-266GlaxxsbmhtRegency Hospital ToledoComment on above:Performed By: #### [id number] #### [facility] ([facility]) [address] [place], [place] [address]Ilrdhtjgu [Moles/Vol]3.7 mmol/LNormal3.5-5.1UnRegency Hospital ToledoComment on above:Performed By: #### [id number] #### [facility] ([facility]) [address] [facility] [place], [place] [address]Sygbav [Moles/Vol]137 mmol/GPgnfdg332-522VimswzosoeRegency Hospital ToledoComment on above:Performed By: #### [id number] #### [facility] ([facility]) [address] [facility] [place] [address]Vjrr nitrogen [Mass/Vol]68 mg/dLHigh7-25UnRegency Hospital ToledoComment on above:Performed By: #### [id number] #### [facility] ([facility]) [address] [place], [place] [address]WNWI NITROGEN/CREATININE (MASS RATIO) IN SER/PLAS40.7Normal [facility] HospitalComment on above:Performed By: #### [id number] #### [facility] ([facility]) [address] [facility] [place], [place] [address]OYOvi 52-85-6498Mfjozznogbp distribution width (RBC) [Ratio]15.2 %High11.5-15.0UnRegency Hospital ToledoComment on above:Performed By: #### [id number] #### [facility] ([facility]) [address] [place], [place] [address]DSXCLRPASGQ MEAN CORPUSCULAR HEMOGLOBIN CONCENTRATION (G/DL) BY POFXSLEDN60.4 g/jIKlalyw52.0-35.0UnRegency Hospital ToledoComment on above:Performed By: #### [id number] #### [facility] ([facility]) [address] [place] [address]Nvdgofbqmw (Bld) [Volume fraction]25.9 %Low36.0-45.0UnRegency Hospital ToledoComment on above:Performed By: #### [id number] #### [facility] ([facility]) [address] [place] [address]Umekerbdoz (Bld) [Mass/Vol]8.4 g/dLLow12.0-15.0UnRegency Hospital ToledoComment on above:Performed By: #### [id number] #### [facility] ([facility]) [address] [place] [address]CGA (RBC) [Entitic mass]30.8 vlLvrjdo44.0-33.0UnRegency Hospital ToledoComment on above:Performed By: #### [id number] #### [facility] ([facility]) [address] [place] [address]YCY (RBC) [Entitic vol]94.9 aYWviwxv06.0-98.0UnRegency Hospital ToledoComment on above:Performed By: #### [id number] #### [facility] ([facility]) [address] [place] [address]CUBQQSTIM (10*3/UL) IN BLOOD AUTOMATED CWPTF418 10*3/uLLow 150-400UnRegency Hospital ToledoComment on above:Performed By: #### [id number] #### [facility] ([facility]) [address] [place] [address]NOL (Bld) [#/Vol]2.73 10*6/uLLow3.80-5.00UnRegency Hospital ToledoComment on above:Performed By: #### [id number] #### [facility] ([facility]) [address] [place] [address]NIO (Bld) [#/Vol]4.95 10*3/uLNormal4.00-10.60UnRegency Hospital ToledoComment on above:Performed By: #### [id number] #### [facility] ([facility]) [address] [place], [place] [address]DOMW GLUCOSE METER UNSOLICITED RESULTSon 51-49-7112Ecerkkr [Mass/Vol]204 mg/qIGxmv92-647NqdnyxbhtcRegency Hospital ToledoComment on above:Order Comment: Waived Testing in the ED is performed under the ED CLIA certificate #[id number].Result Comment: hypfcic8Typpchxce By: #### [id number] #### [facility] ([facility]) [address] [place], [place] [address]Vbakkhc [Mass/Vol]312 mg/iVZszm81-627FuyurdbtdmRegency Hospital ToledoComment on above:Order Comment: Waived Testing in the ED is performed under the ED CLIA certificate #[id number].Result Comment: tklopfe Performed By: #### [id number] #### [facility] ([facility]) [address] [place], [place] [address]Mcsyyyk [Mass/Vol]305 mg/hYYsvc42-832LmdwzpnfqxOhioHealth Grove City Methodist HospitalComment on above:Order Comment: Waived Testing in the ED is performed under the ED CLIA certificate #[id number].Result Comment: bflood Performed By: #### [id number] #### [facility] ([employer]) [address] [place], [place] [address]Zphouxc [Mass/Vol]299 mg/bABswf06-724TowlniqnaxOhioHealth Grove City Methodist HospitalComment on above:Order Comment: Waived Testing in the ED is performed under the ED CLIA certificate #[id number].Result Comment: bflood Performed By: #### [id number] #### [facility] ([facility]) [address] [place], [place] [address]kh 39-90-151407Ztheobq: Pain - Adult Goal: Verbalizes/displays adequate comfort level or baseline comfort level Outcome: Progressing Problem: Safety - Adult Goal: Free from fall injury Outcome: Progressing Flowsheets (Taken 10/08/20241899) Free from fall injury: Assess patient frequently for physical needs Identify cognitive and physical deficits and behaviors that affect risk of falls Davis fall precautions as indicated by assessment Educate patient/family on patient safety, including physical limitations Instruct patient to call for assistance with activity based on assessment Modify environment to reduce risk of injury Consider OT/PT consult to assist with strengthening/mobility Problem: Discharge Planning Goal: Discharge to home or other facility with appropriate resources Outcome: Progressing Flowsheets (Taken 10/08/20241899) Discharge to home or other facility with appropriate resources: Identify barriers to discharge with patient and caregiver Problem: Chronic Conditions and Co-morbidities Goal: Patient's chronic conditions and co-morbidity symptoms are monitored and maintained or improved Outcome: Progressing Flowsheets (Taken 10/08/20241899) Care Plan - Patient's Chronic Conditions and [...] clinical goals for the shift include VSS, safetyNormalUniversity of [facility]30Daily Case Management Update Multidisciplinary rounds have been [...] discharge disposition appropriate for patient?: Yes New Consults:NormalUnRegency Hospital [place]edo30The patient is Moderately Unstable - Medium risk [...] with appropriate resources Outcome: Progressing Flowsheets (Taken 10/08/2024752) Discharge to home or other facility with appropriate resources: Identify barriers to discharge with patient and caregiver Problem: Chronic Conditions and Co-morbidities Goal: Patient's chronic conditions and co-morbidity symptoms are monitored and maintained or improved Outcome: Progressing Flowsheets (Taken 10/08/2024752) Care Plan - Patient's Chronic Conditions and Co-Morbidity Symptoms are Monitored and Maintained or Improved: Monitor and assess patient's chronic conditions and comorbid symptoms for stability, deterioration, or improvementNormalUniversFairfield Medical CenterBASIC METABOLIC PANELon 57-75-2007Kfqru gap [Moles/Vol] 14 mmol/LNormal7-20UnRegency Hospital ToledoComment on above:Performed By: #### [id number] #### [facility] ([facility]) [address] [place], [place] [address]Ujawiim [Mass/Vol]8.3 mg/dLLow8.6-10.3UnRegency Hospital ToledoComment on above:Performed By: #### [id number] #### [facility] ([facility]) [address] [facility] [place] [address]Epjbcawf [Moles/Vol]109 mmol/OCzko43-680BgjsaecygrRegency Hospital ToledoComment on above:Performed By: #### [id number] #### [facility] ([facility]ER) [address] [facility], [place] [address]NG7 [Moles/Vol]21 mmol/SNkgyrc98-00XmfylzzbwtRegency Hospital ToledoComment on above:Performed By: #### [id number] #### [facility] ([facility]) [address] [place] [address]Qcjhfsbbtj [Mass/Vol]1.78 mg/dLHigh0.60-1.20UnRegency Hospital ToledoComment on above:Performed By: #### [id number] #### [facility] ([facility]) [address] [place] [address]BVJQJRQZAO FILTRATION RATE ML/MIN/1.73 SQ M.PYSIOBWCB53.1 mL/min/1.73m*2Low>60.0UnRegency Hospital ToledoComment on above:Result Comment: [facility]???s estimated glomerular filtration rate (eGFR) will [...] potential consequences that do not disproportionately affect anyone group of individuals.Performed By: #### [id number] #### [facility] ([facility]) [address] [place] [address]Uyuzrlx [Mass/Vol]212 mg/oDNjux46-696UncpkfplyoRegency Hospital ToledoComment on above:Performed By: #### [id number] #### [facility] ([facility]) [address] [place] [address]Thwuueolz [Moles/Vol]4.1 mmol/LNormal3.5-5.1UnRegency Hospital ToledoComment on above:Performed By: #### [id number] #### [facility] ([facility]) [address] [place] [address]Rbxcep [Moles/Vol]140 mmol/IZutsyh261-195TwhoxxwmpkRegency Hospital ToledoComment on above:Performed By: #### [id number] #### [facility] ([facility]) [address] [place], [place] [address]Rdap nitrogen [Mass/Vol]65 mg/dLHigh7-25UnRegency Hospital ToledoComment on above:Performed By: #### [id number] #### [facility] ([facility]) [address] [place], [place] [address]RXJT NITROGEN/CREATININE (MASS RATIO) IN SER/PLAS36.5Normal [facility] HospitalComment on above:Performed By: #### [id number] #### [facility] ([facility]) [address] [place], [place] [address]KUNCEEUPLX AND HEMATOCRIT, BLOODon 80-83-7920Gowkchcgzm (Bld) [Volume fraction]24.7 %Low36.0-45.0UnRegency Hospital ToledoComment on above:Performed By: #### [id number] ####[facility] ([facility])[address] [place], [place] [address]Yuvenrkaoy (Bld) [Mass/Vol]7.8 g/dLLow12.0-15.0UnRegency Hospital ToledoComment on above:Performed By: #### [id number] ####[facility] ([facility])[address] [place], [place] [address]ULOA GLUCOSE METER UNSOLICITED RESULTSon 15-23-3167Hqewiny [Mass/Vol]285 mg/kJDzyz97-544OohrqntkskRegency Hospital ToledoComment on above:Order Comment: Waived Testing in the ED is performed under the ED CLIA certificate #[id number].Result Comment: [email or web address] Performed By: #### [id number] #### [facility] ([facility]) [address] [place], [place] [address]Bzuqxtp [Mass/Vol]217 mg/dLDxjw37-054OrkqedehjeRegency Hospital ToledoComment on above:Order Comment: Waived Testing in the ED is performed under the ED CLIA certificate #[id number].Result Comment: isegura2 Performed By: #### [id number] #### [facility] ([facility]) [address] [place], [place] [address]Hjwsksp [Mass/Vol]175 mg/oXFpwd30-215LiyxkfnveyRegency Hospital ToledoComment on above:Order Comment: Waived Testing in the ED is performed under the ED CLIA certificate #[id number].Result Comment: jfennel2 Performed By: #### [id number] #### [facility] ([facility]) [address] [place], [place] [address]Dqohsza [Mass/Vol]225 mg/iWJyyy19-474DwlborwlxaRegency Hospital ToledoComment on above:Order Comment: Waived Testing in the ED is performed under the ED CLIA certificate #[id number].Result Comment: isegura2 Performed By: #### [id number] #### [facility] ([facility]) [address] [place], [place] [address]Xoobczt [Mass/Vol]213 mg/jGGzzg01-321VaqrcfavziRegency Hospital ToledoComment on above:Order Comment: Waived Testing in the ED is performed under the ED CLIA certificate #[id number].Result Comment: jfennel2 Performed By: #### [id number] #### [facility] ([facility]) [address] [place], [place] [address]Dtfjeyj [Mass/Vol]201 mg/aZHzmq35-918LwhdkebvtlRegency Hospital ToledoComment on above:Order Comment: Waived Testing in the ED is performed under the ED CLIA certificate #[id number].Result Comment: [email or web address] Performed By: #### [id number] #### [facility] ([facility]) [address] [place], [place] [address]Zgbuthf [Mass/Vol]162 mg/xFTupy01-517OlcddfumupRegency Hospital ToledoComment on above:Order Comment: Waived Testing in the ED is performed under the ED CLIA certificate #[id number].Result Comment: jfennel2 Performed By: #### [id number] #### [facility] ([facility]) [address] [place], [place] [address]Tmrfazm [Mass/Vol]182 mg/cNBllc47-112BubennnyiiRegency Hospital ToledoComment on above:Order Comment: Waived Testing in the ED is performed under the ED CLIA certificate #[id number].Result Comment: [email or web address] Performed By: #### [id number] #### [facility] ([facility]) [address] [place], [place] [address]Ukfiqgn [Mass/Vol]220 mg/lUSywr95-448NzibubdqaoRegency Hospital ToledoComment on above:Order Comment: Waived Testing in the ED is performed under the ED CLIA certificate #[id number].Result Comment: isegura2 Performed By: #### [id number] #### [facility] ([facility]) [address] [place], [place] [address]Tapjbyh [Mass/Vol]233 mg/eFAjjv17-619EoaigwtigkRegency Hospital ToledoComment on above:Order Comment: Waived Testing in the ED is performed under the ED CLIA certificate #[id number].Result Comment: eproven Performed By: #### [id number] ####[facility] ([facility] [place], [place] [address]Rhqwbyj [Mass/Vol]209 mg/lNMzir80-811IapzvnwvdtRegency Hospital ToledoComment on above:Order Comment: Waived Testing in the ED is performed under the ED CLIA certificate #[id number].Result Comment: pvaleri Critical Value NotedPerformed By: #### [id number] #### [facility] [facility] (BEAKER) [address] [place], [place] [address]Henaqyj [Mass/Vol]251 mg/lIBecl59-944NrtdtcpoziRegency Hospital ToledoComment on above:Order Comment: Waived Testing in the ED is performed under the ED CLIA certificate #[id number].Result Comment: Performed By: #### [id number] #### [facility] (BEAKER) [address] [place], [place] [address]Pgwxmce [Mass/Vol]256 mg/wXUqvl42-775VpdtjynfuwRegency Hospital ToledoComment on above:Order Comment: Waived Testing in the ED is performed under the ED CLIA certificate #[id number].Result Comment: pvaleri Performed By: #### [id number] #### [facility] (BEAKER) [address] [place], [place] [address]Yyvnzoo [Mass/Vol]203 mg/sIKhmk46-613WahhoiawnnRegency Hospital ToledoComment on above:Order Comment: Waived Testing in the ED is performed under the ED CLIA certificate #[id number].Result Comment: eproven Performed By: #### [id number] #### [facility] (AK[facility]) [address] [place], [place] [address]Zkdciao [Mass/Vol]188 mg/oMTpex04-174UeotspaadmRegency Hospital ToledoComment on above:Order Comment: Waived Testing in the ED is performed under the ED CLIA certificate #[id number].Result Comment: eproven Performed By: #### [id number] #### [facility] (AKER) [address] [place], [place] [address]Coyqzgo [Mass/Vol]199 mg/fJIadn15-736AbonctrxqqRegency Hospital ToledoComment on above:Order Comment: Waived Testing in the ED is performed under the ED CLIA certificate #[id number].Result Comment: pvaleri Performed By: #### [id number] #### [facility] ([facility]) [address] [place], [place] [address]af [id number]: Pain - Adult Goal: Verbalizes/displays adequate comfort level or baseline comfort level Outcome: Progressing Problem: Safety - Adult Goal: Free from fall injury Outcome: Progressing Flowsheets (Taken 10/07/20241999) Free from fall injury: Assess patient frequently for physical needs Identify cognitive and physical deficits and behaviors that affect risk of falls Davis fall precautions as indicated by assessment Educate [...] clinical goals for the shift include VSS, safetyNormalUniversity of [facility]30Problem: Pain - Adult Goal: Verbalizes/displays adequate comfort level or baseline comfort level Outcome: Progressing Flowsheets (Taken 10/07/2024699) Verbalizes/displays adequate comfort level or baseline comfort [...] and behaviors that affect risk of falls Davis fall precautions as indicated by assessment Educate [...] clinical goals for the shift include hemodynamically stableNormalUniversity of Dallas Regional Medical CenterANTI-XA (HEPARIN LEVEL)on 22-40-7476HTYUXAC UNFRACTIONATED (U/ML) IN PPP BY CHROMOGENIC METHOD0.65 IU/mLNormal0.3-0.7 [facility] HospitalComment on above:Order Comment: Check anti-Xa level every 6 hours while on heparin infusion, or per protocol.Result Comment: Rivaroxaban and Apixaban will interfere with the anti Xa assay used to monitor UFH and LMWH.Performed By: #### [id number] #### [facility] (BEAKER) [address] [place], [place] [address]DFLOBEB UNFRACTIONATED (U/ML) IN PPP BY CHROMOGENIC METHOD0.57 IU/mLNormal0.3-0.7[facility] Methodist HospitalComment on above:Order Comment: Check anti-Xa level every 6 hours while on heparin infusion, or per protocol.Result Comment: Rivaroxaban and Apixaban will interfere with the anti Xa assay used to monitor UFH and LMWH.Performed By: #### [id number] #### [facility] (BEAKER) [address] [place], [place] [address]HQCRGBE UNFRACTIONATED (U/ML) IN PPP BY CHROMOGENIC METHOD0.40 IU/mLNormal0.3-0.7UnRegency Hospital ToledoComment on above:Order Comment: Check anti-Xa level every 6 hours while on heparin infusion, or per protocol.Result Comment: Rivaroxaban and Apixaban will interfere with the anti Xa assay used to monitor UFH and LMWH.Performed By: #### [id number] #### [facility] (BEAKER) [address] [place] [address]GHIIZTY UNFRACTIONATED (U/ML) IN PPP BY CHROMOGENIC METHOD<0.10 Invalid Interpretation Code0.3-0.7UnRegency Hospital ToledoComment on above:Result Comment: Rivaroxaban and Apixaban will interfere with the anti Xa assay used to monitor UFH and LMWH.Performed By: #### [id number] #### [facility] ([facility]) [address] [address]PGGDvt 85-42-4823SCBXNRWLB PARTIAL THROMBOPLASTIN TIME IN PPP BY COAGULATION ASSAY46.7 JkzrzarDnqr07.0-35.0UnRegency Hospital Toledo Comment on above:Result Comment: Clinical significance of the APTT is questionable in the presence of heparin.Performed By: #### [id number] #### [facility] ([facility]) [address] [address]UXRWL METABOLIC PANELon 97-57-9181Sezsg gap [Moles/Vol]30 mmol/L High7-20UnRegency Hospital ToledoComment on above:Performed By: #### [id number] ####[facility] ([facility])[address] [address]Bmoukog [Mass/Vol]8.6 mg/dLNormal8.6-10.3UnRegency Hospital ToledoComment on above:Performed By: #### [id number] ####[facility] ([facility])[address] [address]Cdfgafrc [Moles/Vol]102 mmol/QDzpmzg97-363ZgiqfrxvzxRegency Hospital ToledoComment on above:Performed By: #### [id number] ####[facility] ([facility])[address] [address]HN0 [Moles/Vol]9 mmol/LInvalid Interpretation Abxs32-32OmtulxknhjRegency Hospital ToledoComment on above: Performed By: #### [id number] ####[facility] ([facility])[address] [address]Zmsdjsgjqq [Mass/Vol]1.70 mg/dLHigh0.60-1.20UnRegency Hospital ToledoComment on above:Performed By: #### [id number] ####[facility] ([facility])[address] [place] [address]DMXKVQUXLV FILTRATION RATE ML/MIN/1.73 SQ M.THWYJKJYU94.0 mL/min/1.73m*2Low>60.0UnRegency Hospital Toledo Comment on above:Result Comment: The [facility]'s estimated glomerular filtration rate (eGFR) will no longer include consideration of race in its calculation. The National Kidney Foundation'seGFR Task Force developed new recommendations for the estimation of the glomerular filtration rate in the [place] They recommend immediate implementation of the new equation refit without the race variable in all laboratories because the calculation does not include race. In addition to not including race in the calculation and reporting, it included diversity in its development, and has acceptable p erformance characteristics and potential consequences that do not disproportionately affect any onegroup of individuals.Performed By: #### [id number] ####[facility] ([facility])[address] [place] [address]Whuvmnn [Mass/Vol]649 mg/dLCritically khef69-417CqaivswtpvRegency Hospital Toledo Comment on above:Performed By: #### [id number] ####[facility] ([facility])[address] [place] [address]Bpgtsczcq [Moles/Vol]5.1 mmol/LNormal3.5-5.1 [facility] HospitalComment on above:Performed By: #### [id number] ####[facility] ([facility])[address] [place] [address]Envuds [Moles/Vol]136 mmol/QCfgfgy948-329UivviczbvrRegency Hospital ToledoComment on above:Performed By: #### [id number] ####[facility] ([facility])[address] [place] [address]Jzal nitrogen [Mass/Vol]41 mg/dLHigh7-25UnRegency Hospital ToledoComment on above:Performed By: #### [id number] ####[facility] (BEAKER)[address] [place] [address]SWWW NITROGEN/CREATININE (MASS RATIO) IN SER/PLAS24.1NormalUnRegency Hospital ToledoComment on above: Performed By: #### [id number] ####[facility] ([facility])[address] [address]HYSQK CULTUREon 61-47-2798Gromhiom identified Cx Nom (Bld)No growth at 5 daysNormalUniversFairfield Medical CenterComment on above:Order Comment: From a different site than #1.Performed By: #### [id number] ####[facility] ([facility])[address] [place] [address]Dpapuritz By: #### [id number] #### [facility] ([facility]) [address] [place] [address]QSBab 94-97-7864Uuzjxsnsahp distribution width (RBC) [Ratio]15.0 %Nsrpvx99.5-15.0UnRegency Hospital ToledoComment on above:Performed By: #### [id number] #### [facility] ([facility]) [address] [place] [address]LKZIWPYUAWL MEAN CORPUSCULAR HEMOGLOBIN CONCENTRATION (G/DL) BY UZRUIYBAA16.1 g/dLLow32.0-35.0UnRegency Hospital ToledoComment on above:Performed By: #### [id number] #### [facility] ([facility]) [address] [place], [place] [address]Qwwsvpzlke (Bld) [Volume fraction]27.0 %Low36.0-45.0UnRegency Hospital ToledoComment on above:Performed By: #### [id number] #### [facility] ([facility]) [address] [place], [place] [address]Qagfvfrjwc (Bld) [Mass/Vol]8.4 g/dLLow12.0-15.0UnRegency Hospital ToledoComment on above:Performed By: #### [id number] #### [facility] [address] [place], [place] [address]CCPRIPVG PLATELET FRACTION %6.6 %High0.8-6.3UnRegency Hospital ToledoComment on above:Performed By: #### [id number] #### [facility] ([facility]) [address] [place] [address]RTZ (RBC) [Entitic mass]30.9 xoZgjnbd51.0-33.0UnRegency Hospital ToledoComment on above:Performed By: #### [id number] #### [facility] ([facility]) [address] [place] [place] [address]VHE (RBC) [Entitic vol]99.3 xDYwqe11.0-98.0UnRegency Hospital ToledoComment on above:Performed By: #### [id number] #### [facility] ([facility]) [address] [place] [address]VLUVCIXEK (10*3/UL) IN BLOOD AUTOMATED HSLNN179 10*3/uLNormal 150-400UnRegency Hospital ToledoComment on above:Performed By: #### [id number] #### [facility] ([facility]) [address] [place], [place] [address]DDV (Bld) [#/Vol]2.72 10*6/uLLow3.80-5.00UnRegency Hospital ToledoComment on above:Performed By: #### [id number] #### [facility] ([facility]) [address] [place] [place] [address]PJA (Bld) [#/Vol]9.59 10*3/uLNormal4.00-10.60UnRegency Hospital ToledoComment on above:Performed By: #### [id number] #### [facility] ([facility]) [address] [place] [address]ORLJDJDgp 63-92-3294QOALTHK Attestation signed by Yecenia Buckley MD at 10/07/2024 6:54 PM By [...] for Consult: concern for NSTEMI HPI: Mary Jnae uSarez is a 54 y.o. female with medical history notable for mild CAD (cath 2020), T2DM (9.7%), HTN, HLD. History obtained from patient. Mary aJne Suarez presented with three days of cough productive of rust colored sputum. She is currently being treated for community acquired pneumonia and diabetic ketoacidosis. She was last seen by Cardiology in July at which time her metoprolol tartrate was increased to 100mg q12hrs and she was started on Repatha for lipid management. On evaluation this admission, Ms Suarez denies chest pain, palpitations, worsening dyspnea. Her primary complaints are productive cough and chills. Notable labs include HS trop 56 trended to 53. ECG demonstrated sinus rhythm. Cardiology was consulted for evaluation of NSTEMI concern. Active outpatient cardiac medications: Clopidogrel, evolocumab, fenofibrate, furosemide, lisinopril, metoprolol tartrate, rosuvastatin. Family history of cardiac pathology: None reported. Tobacco/alcohol/substance history: Denies. 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 Last surface echo: EF 60-65%, reduced [...] Nightly ferrous sulfate 325 mg, oral fexofenadine (ORAL) 180 mg, oral, Daily RT fluticasone (Flonase) [...] oral, 2 times daily PRN metoprolol tartrate (Lopresso (more content not included)...NormalUnRegency Hospital ToledoHIGH SENSITIVITY TROPONIN Ion 99-80-8463NY TROPONIN I (NG/L)53 ng/LCritically high<15UnRegency Hospital ToledoComment on above:Performed By: #### [id number] #### [facility] (AKER) [address] [place], [place] [address]LP TROPONIN I (NG/L)56 ng/LCritically high<15UnRegency Hospital ToledoComment on above:Performed By: #### [id number] #### [facility] ([facility]) [address] [place], [place] [address]QRFTNY ACID WITH 4 HOUR REFLEXon 40-77-4223IHGUTIX (MMOL/L) IN SER/PLAS1.1 mmol/LNormal0.5-2.2UnRegency Hospital ToledoComment on above:Performed By: #### [id number] #### [facility] (BEAKER) [address] [place], [place] [address]EKCCA PANELon 18-50-9156OYFF/HDL5.7 mg/dLNormalUniversFairfield Medical CenterComment on above:Performed By: #### [id number] ####[facility] (BEAKER)[address] [place], [place] [address]Lrhjjthwkdx [Mass/Vol]147 mg/dL Walovo577-596DuzxjuqrliRegency Hospital ToledoComment on above:Performed By: #### [id number] ####[facility] ([facility])[address] [place] [address] Magnesium [Mass/Vol]221 mg/dLHigh<150UnRegency Hospital ToledoComment on above:Result Comment: TRIGLYCERIDE REFERENCE RANGE: 20 YEARS AND OLDER CARDIOVASCULAR RISK LESS THAN 150 mg/dL LOW RISK 150 TO 199 mg/dL BORDERLINE RISK 200 mg/dL AND GREATER HIGH RISKPerformed By: #### [id number] ####[facility] ([facility])[address] [facility], [place] [address]Fvjrynyjz [Mass/Vol]77 mg/dLNormal 0-160UnRegency Hospital ToledoComment on above:Performed By: #### [id number] ####[facility] ([facility])[address] [place], [place] [address]Xdqauogiu [Mass/Vol]26 mg/iSCdkzni48-85IwmuneonazRegency Hospital ToledoComment on above:Performed By: #### [id number] ####[facility] ([facility])[address] [place], [place] [address]HIZ HDL CHOL. (LDL+VLDL)121NormalUniBlanchard Valley Health SystemComment on above:Performed By: #### [id number] ####[facility] ([facility])[address] [place], [place] [address]TBGRJ VLDL-C44 mg/dLHigh0-40UnRegency Hospital ToledoComment on above:Performed By: #### [id number] ####[facility] ([facility])[address] [place], [place] [address]VUSE GLUCOSE METER UNSOLICITED RESULTSon 51-85-6067Fwowogx [Mass/Vol]263 mg/oQYxxy10-441BtaaedxmapRegency Hospital ToledoComment on above:Order Comment: Waived Testing in the ED is performed under the ED CLIA certificate #[id number].Result Comment: ldoe Critical Value NotedPerformed By: #### [id number] #### [facility] ([facility]) [address] [place], [place] [address]Aaqzfnt [Mass/Vol]279 mg/zVJgmh05-020BxqvwhjroxRegency Hospital ToledoComment on above:Order Comment: Waived Testing in the ED is performed under the ED CLIA certificate #[id number].Result Comment: [email or web address] Performed By: #### [id number] #### [facility] (BEAKER) [address] [place], [place] [address]Abiroby [Mass/Vol]289 mg/bNVfdd52-620ZoyeyroohaRegency Hospital ToledoComment on above:Order Comment: Waived Testing in the ED is performed under the ED CLIA certificate #[id number].Result Comment: [email or web address] Performed By: #### [id number] #### [facility] (BEAKER) [address] [place], [place] [address]Jobpwcu [Mass/Vol]277 mg/kRVwvq81-470ExnvcjtldpRegency Hospital ToledoComment on above:Order Comment: Waived Testing in the ED is performed under the ED CLIA certificate #[id number].Result Comment: [email or web address] Performed By: #### [id number] #### [facility] (BEAKER) [address] [place], [place] [address]Jqtsarf [Mass/Vol]319 mg/tXUvny95-989VlhtpveyfqOhioHealth Grove City Methodist HospitalComment on above:Order Comment: Waived Testing in the ED is performed under the ED CLIA certificate #[id number].Result Comment: eproven Performed By: #### [id number] #### [facility] (BEAKER) [address] [place], [place] [address]Oigcclm [Mass/Vol]362 mg/hYZdwb34-642GnbxxznkpiRegency Hospital ToledoComment on above:Order Comment: Waived Testing in the ED is performed under the ED CLIA certificate #[id number].Result Comment: [email or web address] Performed By: #### [id number] #### [facility] (BEAKER) [address] [place], [place] [address]Qceyzna [Mass/Vol]375 mg/lMPjji36-116OskvqyhkgnRegency Hospital ToledoComment on above:Order Comment: Waived Testing in the ED is performed under the ED CLIA certificate #[id number].Result Comment: [email or web address] Performed By: #### [id number] #### [facility] (BEAKER) [address] [place], [place] [address]Tczdmqw [Mass/Vol]406 mg/jSWwqh10-838AxdvfcobfuRegency Hospital ToledoComment on above:Order Comment: Waived Testing in the ED is performed under the ED CLIA certificate #[id number].Result Comment: [email or web address] Performed By: #### [id number] ####[facility] (BEAKER)[address] [place], [place] [address]Qnvjiwp [Mass/Vol]330 mg/rHDqxb11-413UgtbecuzwnRegency Hospital ToledoComment on above:Order Comment: Waived Testing in the ED is performed under the ED CLIA certificate #[id number].Result Comment: [email or web address] Performed By: #### [id number] #### [facility] (BEAKER) [address] [place], [place] [address]Pgzhgbt [Mass/Vol]374 mg/wRLztr18-949JeboqgbsanRegency Hospital ToledoComment on above:Order Comment: Waived Testing in the ED is performed under the ED CLIA certificate #[id number].Result Comment: [email or web address] Performed By: #### [id number] ####[facility] (BEAKER)[address] [place], [place] [address]Mupuvii [Mass/Vol]401 mg/tNIldl83-987LhthxnfwkmRegency Hospital ToledoComment on above:Order Comment: Waived Testing in the ED is performed under the ED CLIA certificate #[id number].Result Comment: [email or web address] Performed By: #### [id number] ####[facility] (BEAKER)[address] [place], [place] [address]Qjfclls [Mass/Vol]447 mg/wIZbqd37-839SeamzznxrpRegency Hospital ToledoComment on above:Order Comment: Waived Testing in the ED is performed under the ED CLIA certificate #[id number].Result Comment: [email or web address] Performed By: #### [id number] ####[facility] (BEAKER)[address] [place], [place] [address]Ytbtkzg [Mass/Vol]428 mg/cKEcvt91-749SfanvammldRegency Hospital ToledoComment on above:Order Comment: Waived Testing in the ED is performed under the ED CLIA certificate #[id number].Result Comment: [email or web address] Performed By: #### [id number] ####[facility] (BEAKER)[address] [place], [place] [address]Zwtrgyb [Mass/Vol]470 mg/sHCyjy14-943LgsmjpofjlRegency Hospital ToledoComment on above:Order Comment: Waived Testing in the ED is performed under the ED CLIA certificate #[id number].Result Comment: [email or web address] Performed By: #### [id number] #### [facility] (BEAKER) [address] [place], [place] [address]Syycxia [Mass/Vol]476 mg/hRLinz57-118FkzjivfkitRegency Hospital ToledoComment on above:Order Comment: Waived Testing in the ED is performed under the ED CLIA certificate #[id number].Result Comment: [email or web address] Performed By: #### [id number] #### [facility] (BEAKER) [address] [place], [place] [address]Habutwl [Mass/Vol]511 mg/dLCritically pcxb25-042AgeffpiivfOhioHealth Grove City Methodist HospitalComment on above:Order Comment: Waived Testing in the ED is performed under the ED CLIA certificate #[id number].Result Comment: [email or web address] Critical Value NotedPerformed By: #### [id number] #### [facility] (BEAKER) [address] [place], [place] [address]Rufmomp [Mass/Vol]555 mg/dLCritically kcak56-283DykytbjznuRegency Hospital ToledoComment on above:Order Comment: Waived Testing in the ED is performed under the ED CLIA certificate #[id number].Result Comment: blongor Performed By: #### [id number] ####[facility] (BEAKER)[address] [place], [place] [address]Yslljzg [Mass/Vol]523 mg/dLCritically mybu22-899IribjjnnggRegency Hospital ToledoComment on above:Order Comment: Waived Testing in the ED is performed under the ED CLIA certificate #[id number].Result Comment: ldoe Performed By: #### [id number] ####[facility] (BEAKER)[address] [place], [place] [address]Twbzehd [Mass/Vol]589 mg/dLCritically izkd39-791QbxdzndjzzOhioHealth Grove City Methodist HospitalComment on above:Order Comment: Waived Testing in the ED is performed under the ED CLIA certificate #[id number].Result Comment: nslawin Critical Value NotedPerformed By: #### [id number] ####[facility] (BEAKER)[address] [place], [place] [address]Hycuysr [Mass/Vol]mg/dLCritically high 70-105OhioHealth [facility] City Methodist HospitalComment on above:Order Comment: Waived Testing in the ED is performed under the ED CLIA certificate #[id number].Result Comment: ldoe Critical Value NotedPerformed By: #### [id number] ####[facility] (BEAKER)[address] [place], [place] [address]Qfxlnie [Mass/Vol]mg/dLCritically high 70-105OhioHealth [facility] City Methodist HospitalComment on above:Order Comment: Waived Testing in the ED is performed under the ED CLIA certificate #[id number].Result Comment: [email or web address] Critical Value NotedPerformed By: #### [id number] #### [facility] (BEAKER) [address] [place] [address]178qd 08-64-135350Tgntsat: Pain - Adult Goal: Verbalizes/displays adequate comfort [...] goals for the shift include VSS, safety ONMercy Health St. Charles HospitalCB WITH AUTO DIFFERENTIALon 76-40-0713Gofcvhbyl (Bld) [#/Vol]0.01 10*3/uLNormal0.00-0.20UnRegency Hospital ToledoComment on above:Performed By: #### [id number] #### [facility] ([facility]) [address] [place] [place], [place] [address]Nmuknaeih/100 WBC (Bld)0.2 %Normal0.0-1.0UnRegency Hospital ToledoComment on above:Performed By: #### [id number] #### [facility] ([facility]) [address] [facility] [place], [place] [address]Zifuybdfyal (Bld) [#/Vol]0.00 10*3/uLNormal0.00-0.50UnRegency Hospital ToledoComment on above:Performed By: #### [id number] #### [facility] ([facility]) [address] [place], [place] [address]Sunhpklspks/100 WBC (Bld)0.0 %Normal0.0-6.0UnRegency Hospital ToledoComment on above:Performed By: #### [id number] #### [facility] ([facility]) [address] [place], [place] [address]Aknybygsipd distribution width (RBC) [Ratio]15.0 %Normal 11.5-15.0UnRegency Hospital ToledoComment on above:Performed By: #### [id number] #### [facility] ([facility]) [address] [place], [place] [address]VVWFYPRQIOL MEAN CORPUSCULAR HEMOGLOBIN CONCENTRATION (G/DL) BY AFYFZMDFI42.3 g/dLLow32.0-35.0UnRegency Hospital ToledoComment on above:Performed By: #### [id number] #### [facility] ([facility]) [address] [place] [place], [place] [address]Jfbwhpqpqz (Bld) [Volume fraction]29.0 %Low36.0-45.0UnReg[facility] Hospital ToledoComment on above:Performed By: #### [id number] #### [facility] ([facility]) [address] [place] [address]Fjswzdmefc (Bld) [Mass/Vol]8.5 g/dLLow12.0-15.0UnReg[facility] Hospital ToledoComment on above:Performed By: #### [id number] #### [facility] ([facility]) [address] [place] [address]Gxpbjhhj granulocytes (Bld) [#/Vol]0.06 10*3/uLNormal0.00-0.20 [facility] HospitalComment on above:Performed By: #### [id number] #### [facility] ([facility]) [address] [place] [address]Ulidqhdh granulocytes/100 WBC (Bld)1.0 %Normal0.0-1.0UnRegency Hospital ToledoComment on above:Performed By: #### [id number] #### [facility] ([facility]) [address] [place], [place] [address]Giagcqrzajh (Bld) [#/Vol]0.62 10*3/uLLow1.20-4.00UnRegency Hospital ToledoComment on above:Performed By: #### [id number] #### [facility] ([facility]) [address] [place] [place] [address]Wkczmwcviec/100 WBC (Bld)10.5 %Low20.0-45.0UnRegency Hospital ToledoComment on above:Performed By: #### [id number] #### [facility] ([facility]) [address] [place] [place], [place] [address]MYT (RBC) [Entitic mass]31.0 xqOwsxsc10.0-33.0UnRegency Hospital ToledoComment on above:Performed By: #### [id number] #### [facility] ([facility]) [address] [place] [address]ZPG (RBC) [Entitic vol]105.8 bZIztp05.0-98.0UnRegency Hospital ToledoComment on above:Performed By: #### [id number] #### [facility] ([facility] [address] [place] [address]Xzrhzwpdg (Bld) [#/Vol]0.08 10*3/uLLow0.10-1.00UnRegency Hospital ToledoComment on above:Performed By: #### [id number] #### [facility] ([facility]) [address] [place] [address]Jxnftrpic/100 WBC (Bld)1.4 %Low5.0-12.0UnRegency Hospital ToledoComment on above:Performed By: #### [id number] #### [facility] ([facility]) [address] [place], [place] [address]Sfrhyfpmtvo (Bld) [#/Vol]5.11 10*3/uLNormal1.60-7.60UnRegency Hospital ToledoComment on above:Performed By: #### [id number] #### [facility] ([facility]) [address] [place] [place] [address]Tcjdvpjakdl/100 WBC (Bld)86.9 %High40.0-72.0UnRegency Hospital ToledoComment on above:Performed By: #### [id number] #### [facility] ([facility]) [address] [place] [address]SQLT (PER 100 WBCS) BY AUTOMATED COUNT0.0 %Mtkdig7VbzdgjyqlmRegency Hospital ToledoComment on above:Performed By: #### [id number] #### [facility] ([facility]) [address] [place], [place] [address]FFOLLUVGE (10*3/UL) IN BLOOD AUTOMATED NAGSZ504 10*3/uLLow 150-400UnRegency Hospital ToledoComment on above:Performed By: #### [id number] #### [facility] ([facility]) [address] [place] [address]CON (Bld) [#/Vol]2.74 10*6/uLLow3.80-5.00UnRegency Hospital ToledoComment on above:Performed By: #### [id number] #### [facility] ([facility]) [address]RON[facility] ILLSharlene [place], [place] [address]CAB (Bld) [#/Vol]5.88 10*3/uLNormal4.00-10.60UnRegency Hospital ToledoComment on above:Performed By: #### [id number] #### [facility] ([facility]) [address] [facility] CENTERSharlene [place], [place] [address]ISSBPLNKWS A1Con 03-75-2363Cnmwwdl [Mass/Vol]212 mg/dLNormal [facility] HospitalComment on above:Performed By: #### [id number] #### [facility] ([facility]) [address] [facility] CENTERSharlene [place], [place] [address]XjA2y (Bld) [Mass fraction]9.0 %High4.0-6.0UnRegency Hospital ToledoComment on above:Performed By: #### [id number] #### [facility] ([facility]) [address] [place], [place] [address]UTXBIL ACID WITH 4 HOUR REFLEXon 56-43-9625NWXNXZR (MMOL/L) IN SER/PLAS1.2 mmol/LNormal0.5-2.2UnRegency Hospital ToledoComment on above:Performed By: #### [id number] ####[facility] ([facility])[address] [place], [place] [address]Fuwjoda (Bld) [Mass/Vol]Ordered By: Mery Trent on 54-87-9979Qxlwibm Blood, FNV007 mg/dLAtrium Health SouthParkErythrocyte distribution width Auto (RBC) [Ratio]on 77-75-3410Pgrbmskipac distribution width (RBC) [Ratio]Erythrocyte distribution width [Ratio] by Automated count11.0-15.0 [facility] HospitalErythrocyte distribution width (RBC) [Ratio] 13.9 %11.0-15.0[facility] HospitalEstimated glomerular filtration rate (GFR) non- Americanon 20-66-9291DXJ/1.73 sq M.predicted among non- blacks MDRD (S/P/Bld) [Vol rate/Area]Estimated glomerular filtration rate (GFR) non- AmericanLow>=60 mL/min/1.73m 2FThe Surgical Hospital at Southwoods GFR/1.73 sq M.predicted among non-blacks MDRD (S/P/Bld) [Vol rate/Area]40 mL/min/{1.73_m2}Low>=60 mL/min/1.73m [address] [place] [address] Hematocrit Auto (Bld) [Volume fraction]on 37-92-6100Wniadkzyqr (Bld) [Volume fraction]Hematocrit [Volume Fraction] of Blood by Automated count36.0-48.0 [facility]S HospitalHematocrit (Bld) [Volume fraction]36.1 % 36.0-48.0[facility] HospitalHemoglobin [Mass/volume] in Bloodon 29-50-2110Xsnlyxavta (Bld) [Mass/Vol]Hemoglobin [Mass/volume] in Blood12.0-16.0 [facility] HospitalHemoglobin (Bld) [Mass/Vol]12.0 g/dL12.0-16.0 [facility] HospitalLaboratory - Chemistry and Chemistry - challengeon 89-91-9587Srpcqgv [Mass/Vol]3.6 g/dL3.4-5.0[facility] HospitalCalcium [Mass/Vol]9.4 mg/dL8.5-10.1FThe Surgical Hospital at SouthwoodsChloride [Moles/Vol]108 mmol/THjiq82-947FwqwhqvnoAk[facility] Children'S Hospital CO2 [Moles/Vol]25.2 mmol/L21.0-32.0[facility] HospitalCreatinine [Mass/Vol]1.36 mg/dLHigh0.55-1.02[facility] HospitalGFR/1.73 sq M.predicted MDRD (S/P/Bld) [Vol rate/Area]49 mL/min/{1.73_m2}Low>=60 mL/min/1.73m [address] [place], [place] [address]Glucose [Mass/Vol]102 mg/dM86-693 [facility]S HospitalMagnesium [Mass/Vol]2.0 mg/dL1.8-2.4FThe Surgical Hospital at SouthwoodsPotassium [Moles/Vol]4.4 mmol/L3.5-5.1FHolzer Medical Center – Jacksonodium [Moles/Vol]143 mmol/V173-993PclrqlgkrAkron Children'S HospitalUrate [Mass/Vol]9.7 mg/dLHigh2.6-6.0[facility] HospitalUrea nitrogen [Mass/Vol]32.0 mg/dLHigh7.0-18.0[facility] HospitalUrea nitrogen/Creatinine [Mass ratio]23.5 mg/mgAk[facility] Children'S Hospital Bilirubin Ql (U)NegativeNEGWayne HospitalGlucose (U) [Mass/Vol]NegativeNEGWayne HospitalKetones Ql (U) NegativeNEGWayne HospitalpH (U)6.0 [pH]5.0-9.0[facility] Hospitalpecific gravity (U) [Rel density]1.0251.005-1.025 [facility] HospitalUrobilinogen Qn (U)0.2 {Betsy'U}/dL0.2-1.0 [facility] HospitalLaboratory - Specimen informationon 09-22-2024 Appearance (U)CLEARCLEARFThe Surgical Hospital at SouthwoodsColor (U)LT. YELLOW YELLOWAkron Children'S HospitalLaboratory - Urinalysison 09-22-2024 Leukocyte esterase Test strip Ql (U)TRACEAbnormalNEGWayne HospitalMucus Ql (Urine sed)SMALLAbnormalNONE [facility] HospitalNitrite Ql (U)NegativeNEGWayne Hospital Protein (U) [Mass/Vol]39.1 mg/dLHigh<=11.9[facility] Protein Ql (U)TRACE mg/dLNEG/TRACEAkron Children'S HospitalLeukocytes [#/volume] corrected for nucleated erythrocytes in Blood by Automated counon 48-01-9305VIA corrected for nucl RBC Auto (Bld) [#/Vol]Leukocytes [#/volume] corrected for nucleated erythrocytes in Blood by Automated coun4.0-11.0[facility] HospitalWBC corrected for nucl RBC Auto (Bld) [#/Vol]5.9 10 3/uL 4.0-11.0[facility] HospitalMCH Auto (RBC) [Entitic mass]on 07-56-0996ZTK (RBC) [Entitic mass]MCH [Entitic mass] by Automated count26.7-34.0 [facility] (RBC) [Entitic mass]30.6 pg26.7-34.0 [facility] CampusHC Auto (RBC) [Mass/Vol]on 31-11-3305ALPN (RBC) [Mass/Vol]MCHC [Mass/volume] by Automated count29.9-35.2FTriHealth McCullough-Hyde Memorial HospitalHC (RBC) [Mass/Vol]33.2 g/dL29.9-35.2FTriHealth McCullough-Hyde Memorial HospitalV Auto (RBC) [Entitic vol]on 94-72-4821CJN (RBC) [Entitic vol]MCV [Entitic volume] by Automated count81.0-99.0[facility] CampusV (RBC) [Entitic vol]92.1 fL81.0-99.0[facility] HospitalNo Panel Informationon 276891-Jhmsezo Vitamin D Total70.9 ng/mLAkron Children'S HospitalComment on above:<20 ng/mL Vit D jghovwdxn88-<30 ng/mL Vit D joiasrytmpbo35-152 ng/mL Vit D sufficient>100 ng/mL Potential Toxicity Parathyroid Hormone (Intact)14 pg/yJSvksbyet06-28ZxokkcehrAkron Children'S HospitalComment on above:Performed at: - [facility] [id number] Director: Godwin Menjivar PhD, Phone: [phone] Phosphorus Level3.8 mg/dL2.6-4.7FThe Surgical Hospital at SouthwoodsUrine Bacteria TRACE #/HPFAbnormalNONE SEENAkron Children'S HospitalUrine Culture ReflexedNOAkron Children'S HospitalUrine Occult BloodNegativeNEGATIVE [facility] HospitalUrine Other CastsNONE SEEN #/LPFNONE SEEN [facility] HospitalUrine Other CrystalsNone Seen #/HPFNone Seen [facility] HospitalUrine Random Sbgnvmrdvr612.55 mg/dL20.00-300.00 [facility] HospitalUrine RBC0-2 #/HPF0-2FThe Surgical Hospital at SouthwoodsUrine Squamous Epithelial CellsFEW #/LPFAbnormalNONE/RAREAkron Children'S HospitalUrine Transitional Epithelial CellsFEW #/LPFAbnormalNONE SEENAkron Children'S HospitalUrine WBC0-2 #/HPFAbnormalNONE SEEN [facility]S HospitalPlatelet mean volume Auto (Bld) [Entitic vol]on 33-84-1106Gjxrsjml mean volume (Bld) [Entitic vol]Platelet mean volume [Entitic volume] in Blood by Automated count9.5-13.5FThe [facility] Platelet mean volume (Bld) [Entitic vol]11.5 fL9.5-13.5FThe Surgical Hospital at SouthwoodsPlatelets Auto (Bld) [#/Vol]on 96-52-4488Gotgyxpop (Bld) [#/Vol] Platelets [#/volume] in Blood by Automated elwle605-584AytzmncstAkron Children'S HospitalPlatelets (Bld) [#/Vol]205 10 3/xM741-853CtvltiynnAkron Children'S HospitalRBC Auto (Bld) [#/Vol]on 99-60-0979UAP (Bld) [#/Vol]Erythrocytes [#/volume] in Blood by Automated countLow4.20-5.40[facility]S HospitalRBC (Bld) [#/Vol]3.92 10 6/uLLow4.20-5.40[facility] Serum or plasma anion gap determinationon 28-17-2201Gxqui gap [Moles/Vol]Serum or plasma anion gap determinationAkron Children'S HospitalAnion gap [Moles/Vol]14.2 mmol/LFThe Surgical Hospital at SouthwoodsUrine protein/creatinine ratioon 56-81-0501Lwedcxi/Creatinine (U) [Ratio]Urine protein/creatinine ratio [facility] HospitalProtein/Creatinine (U) [Ratio]0.28[facility]S HospitalAlanine aminotransferase [Enzymatic activity/volume] in Serum or PlasmaOrdered By: Munir Morelos on 48-57-5050CLI [Catalytic activity/Vol]Alanine aminotransferase [Enzymatic activity/volume] in Serum or Plasma7-[facility]S HospitalAlbumin [Mass/volume] in Serum or Plasma by Bromocresol green (BCG) dye binding methoOrdered By: Munir Morelos on 96-74-3236Dvzmhkh BCG dye [Mass/Vol]Albumin [Mass/volume] in Serum or Plasma by Bromocresol green (BCG) dye binding metho3.5-5.7FThe Surgical Hospital at SouthwoodsAlkaline phosphatase [Enzymatic activity/volume] in Serum or PlasmaOrdered By: Munir Morelos on 52-21-5712LAK [Catalytic activity/Vol]Alkaline phosphatase [Enzymatic activity/volume] in Serum or Plasma 34-104[facility]S HospitalAspartate aminotransferase [Enzymatic activity/volume] in Serum or PlasmaOrdered By: Munir Morelos on 08-21-2024 AST [Catalytic activity/Vol]Aspartate aminotransferase [Enzymatic activity/volume] in Serum or Rqtdmg04-67HltmkbcazAkron Children'S Hospital Basophils Auto (Bld) [#/Vol]Ordered By: Munir Morelos on 08-21-2024 Basophils (Bld) [#/Vol]Automated basophil count0.0-0.2FThe Surgical Hospital at SouthwoodsBasophils/100 WBC Auto (Bld)Ordered By: Munir Morelos on 08-21-2024 Basophils/100 WBC (Bld)Automated basophil %.[facility] Bilirubin.total [Mass/volume] in Serum or PlasmaOrdered By: Munir Morelos on 52-50-1561Xiflrefee [Mass/Vol]Bilirubin.total [Mass/volume] in Serum or Plasma0.3-1.0[facility] HospitalC reactive protein [Mass/volume] in Serum or PlasmaOrdered By: Munir Morelos on 04-59-2729MBJ [Mass/Vol]C reactive protein [Mass/volume] in Serum or Plasma0.0-0.5FThe Surgical Hospital at SouthwoodsC-Reactive Proteinon 93-24-3128XFS [Mass/Vol]mg/LNormal0.0-0.5The [facility] Physician GroupComment on above:Result Comment: PERFORMED BY:[facility] [place], [place] [phone] MEDICAL DIRECTORROBER SERRANO M.D.Performed By: #### CRP, CBC, CMP, ESR ####[place] [id number] [place] Calcium [Mass/volume] in Serum or PlasmaOrdered By: Munir Morelos on 51-07-9452Dwssakb [Mass/Vol]Calcium [Mass/volume] in Serum or Plasma8.6-10.3 [facility] HospitalCarbon dioxide, total [Moles/volume] in Serum or PlasmaOrdered By: Munir Morelos on 31-51-3512IH1 [Moles/Vol]Carbon dioxide, total [Moles/volume] in Serum or Hqstpi97.0-31.0[facility] HospitalChloride [Moles/volume] in Serum or PlasmaOrdered By: Munir Morelos on 94-41-5546Wzzlisqs [Moles/Vol]Chloride [Moles/volume] in Serum or BtifdvDsiy10-303FzgrejicuAkron Children'S HospitalComplete Blood Count Auto Diff on 53-57-0883Qwxhmvkqm (Bld) [#/Vol]0.0 10*3/uLNormal0.0-0.2The [facility] Physician GroupComment on above:Performed By: #### CRP, CBC, CMP, ESR ####[place] [id number] [place] Basophils/100 WBC (Bld)0.7 %Normal.The [facility] Physician GroupComment on above:Performed By: #### CRP, CBC, CMP, ESR ####[place] [address] USAEosinophils (Bld) [#/Vol]0.4 10*3/uL Normal0.0-0.45The [facility] Wayne Physician GroupComment on above:Performed By: #### CRP, CBC, CMP, ESR ####[place] [address] USAEosinophils/100 WBC (Bld)7.5 %Normal.The [facility] Comment on above:Performed By: #### CRP, CBC, CMP, ESR ####[place] [address] USAErythrocyte distribution width (RBC) [Ratio]14.3 %Dxquic22.9-15.3The [facility] Physician GroupComment on above:Performed By: #### CRP, CBC, CMP, ESR ####[place] [address] USAHematocrit (Bld) [Volume fraction]33.0 %Low34.0-46.4The [facility] Physician GroupComment on above:Performed By: #### CRP, CBC, CMP, ESR ####[place] [address] USAHemoglobin (Bld) [Mass/Vol]11.1 g/dLLow11.8-15.4The [facility] Physician GroupComment on above:Performed By: #### CRP, CBC, CMP, ESR ####[place] [address] [place] Lymphocytes (Bld) [#/Vol]1.4 10*3/uLNormal1.00-4.8The [facility] Comment on above:Performed By: #### CRP, CBC, CMP, ESR ####[place] [address] USALymphocytes/100 WBC (Bld)27.9 %Normal.The [facility] Physician GroupComment on above:Performed By: #### CRP, CBC, CMP, ESR ####[address] [address] [facility] HOSPITALMCH (RBC) [Entitic mass]30.9 emVcwjsw51.7-34.3The [facility] Physician GroupComment on above:Performed By: #### CRP, CBC, CMP, ESR ####[address] [address] USAMCV (RBC) [Entitic vol]92.1 dBZehvbk04-658Emi [facility] Physician GroupComment on above:Performed By: #### CRP, CBC, CMP, ESR ####[place] [address] USAMean Corpuscular HGB Conc33.6 g/mLUciwfy54.0-35.0The [facility] Physician GroupComment on above:Performed By: #### CRP, CBC, CMP, ESR ####[address] [address] [facility] Monocytes (Bld) [#/Vol]0.4 10*3/uLNormal0.0-0.8The [facility] Comment on above:Performed By: #### CRP, CBC, CMP, ESR ####[place] [address] USAMonocytes/100 WBC (Bld)21.75 % High0.00-20.00The [facility] Physician GroupComment on above:Result Comment: For adults in ED, MDW > 20.0 may be associated with a higher risk of sepsis during the first 12 hrs of hospital admissionPerformed By: #### CRP, CBC, CMP, ESR ####[address] Monocytes/100 WBC (Bld)8.8 %Normal.The [facility] Physician GroupComment on above:Performed By: #### CRP, CBC, CMP, ESR ####[place] [address] USANeutrophils (Bld) [#/Vol]2.8 10*3/uL Normal1.8-7.7The [facility] Physician GroupComment on above:Performed By: #### CRP, CBC, CMP, ESR ####[place] [address] USANeutrophils/100 WBC (Bld)55.1 %Normal.The [facility] Comment on above:Performed By: #### CRP, CBC, CMP, ESR ####[place] [address] USANRBC%0.1 /100{WBC}Normal0-0.5 The [facility] Physician GroupComment on above:Performed By: #### CRP, CBC, CMP, ESR ####[place] [id number] [place] Platelet mean volume (Bld) [Entitic vol]10.5 fLNormal6.3-10.7The [facility] Physician GroupComment on above:Performed By: #### CRP, CBC, CMP, ESR ####[address] [address] [place] Platelets (Bld) [#/Vol]213 10*3/vOLoyogg906-405Nnk [facility] Comment on above:Performed By: #### CRP, CBC, CMP, ESR ####[address] [address] USARBC (Bld) [#/Vol]3.58 10*6/uL Low3.60-5.00The [facility] MadisonComment on above:Performed By: #### CRP, CBC, CMP, ESR ####[address] [address] USAWBC (Bld) [#/Vol]5.0 10*3/uLNormal3.8-11.6The [facility] Physician GroupComment on above:Performed By: #### CRP, CBC, CMP, ESR ####[address] [address] [facility]OSPITALComprehensive Metabolic Panelon 99-91-0583Llfaugw [Mass/Vol]3.9 g/dLNormal3.5-5.7The [facility] Physician GroupComment on above:Performed By: #### CRP, CBC, CMP, ESR ####[address] Albumin/Globulin [Mass ratio]1.3 {ratio}NormalThe [facility] Comment on above:Performed By: #### CRP, CBC, CMP, ESR ####[address] [address] USAALP [Catalytic activity/Vol]55 U/MNiqlzm10-656Zqr [facility] Physician GroupComment on above:Performed By: #### CRP, CBC, CMP, ESR ####[address] [address] USAALT [Catalytic activity/Vol]13 U/LNormal7-52The [facility] Physician GroupComment on above:Performed By: #### CRP, CBC, CMP, ESR ####[place] [address] [place] [address] USAAnion gap [Moles/Vol] 12.7 mmol/LNormal6.0-15.0The [facility] Physician GroupComment on above:Performed By: #### CRP, CBC, CMP, ESR ####[address] [address] USAAST [Catalytic activity/Vol]21 U/WRruqpy47-71Rnw [facility] Physician GroupComment on above:Performed By: #### CRP, CBC, CMP, ESR ####[address] [address] [place] Bilirubin [Mass/Vol]0.3 mg/dLNormal0.3-1.0The [facility] Physician GroupComment on above:Performed By: #### CRP, CBC, CMP, ESR ####[address] [address] USACalcium [Mass/Vol]8.9 mg/dLNormal 8.6-10.3The [facility] Physician GroupComment on above:Performed By: #### CRP, CBC, CMP, ESR ####[address] [address] USAChloride [Moles/Vol]109 mmol/XNebx91-476Vsz [facility] Comment on above:Performed By: #### CRP, CBC, CMP, ESR ####[address] [address] USACO2 [Moles/Vol]22.2 mmol/L Yikgtf39.0-31.0The [facility] Physician GroupComment on above:Performed By: #### CRP, CBC, CMP, ESR ####[address] [address] USACreatinine [Mass/Vol]1.77 mg/dLHigh0.60-1.20The [facility] Physician GroupComment on above:Performed By: #### CRP, CBC, CMP, ESR ####[address] [address] USACreatinine Clr Calc Fadtxkxw28.25NormalThe [facility] Physician GroupComment on above:Performed By: #### CRP, CBC, CMP, ESR ####[place] [address] [place] [address] USAEstimated GFR33.324 mL/MinNormEast Ohio Regional Hospitale [facility] Physician GroupComment on above:Performed By: #### CRP, CBC, CMP, ESR ####[address] [address] [place] Globulin (S) [Mass/Vol]2.9 g/dLNormEast Ohio Regional Hospitale [facility] Physician GroupComment on above:Performed By: #### CRP, CBC, CMP, ESR ####[address] [address] USAGlucose [Mass/Vol]78 mg/bXWjgdlt67-817 The [facility] Physician GroupComment on above:Result Comment: Random Glucose Reference Range is dependent on time and content of last meal. Glucose of more than 200 mg/dL in a nonstressed, ambulatory subject supports the diagnosis of Diabetes Mellitus. ADA recommended reference rangePerformed By: #### CRP, CBC, CMP, ESR ####[address] [address] USAPotassium [Moles/Vol]3.9 mmol/LNormal3.5-5.1The [facility] Comment on above:Performed By: #### CRP, CBC, CMP, ESR ####[address] [address] USAProtein [Mass/Vol]6.8 g/dL Normal6.4-8.9The [facility] Physician GroupComment on above:Performed By: #### CRP, CBC, CMP, ESR ####[address] [address] USASodium [Moles/Vol]140 mmol/CCsunvz713-203Qxk [facility] Physician GroupComment on above:Performed By: #### CRP, CBC, CMP, ESR ####[address] [address] USAUrea nitrogen [Mass/Vol]31 mg/dLHigh7-25The [facility] Physician GroupComment on above: Performed By: #### CRP, CBC, CMP, ESR ####[facility] [address] [place] [address] USACreatinine [Mass/volume] in Serum or Plasma Ordered By: Munir Morelos on 65-65-3365Fhdudqwoea [Mass/Vol]Creatinine [Mass/volume] in Serum or PlasmaHigh0.60-1.20[facility] Eosinophils Auto (Bld) [#/Vol]Ordered By: Munir Morelos on 08-21-2024 Eosinophils (Bld) [#/Vol]Automated eosinophil count0.0-0.45[facility] HospitalEosinophils/100 WBC Auto (Bld)Ordered By: Munir Morelos on 96-00-2499Wgbpkjzfwbq/100 WBC (Bld)Automated eosinophil %.[facility]S HospitalErythrocyte Sedimentation Rateon 20-37-4827ISP (Bld) [Velocity]57 mm/hHigh0-29The [facility] Physician GroupComment on above:Result Comment: PERFORMED BY:[address] [place], [place] [phone] MEDICAL DIRECTORROBER SERRANO M.D. Performed By: #### CRP, CBC, CMP, ESR ####[facility] [id number] [place] [address] USAErythrocyte distribution width Auto (RBC) [Ratio]Ordered By: Munir Morelos on 34-70-1899Mvdrnwspnow distribution width (RBC) [Ratio]Erythrocyte distribution width [Ratio] by Automated count 11.9-15.3FThe Surgical Hospital at SouthwoodsErythrocyte sedimentation rate by Photometric methodOrdered By: Munir Morelos on 87-59-9434WOA Photometric method (Bld) [Velocity]Erythrocyte sedimentation rate by Photometric methodHigh 0-29[facility] HospitalGlobulin Calc (S) [Mass/Vol]Ordered By: Munir Morelos on 60-52-8543Otlqznxo (S) [Mass/Vol]Serum globulin measurement by calculation (mass/volume)[facility] HospitalGlucose [Mass/volume] in Serum or PlasmaOrdered By: Munir Morelos on 08-21-2024 Glucose [Mass/Vol]Glucose [Mass/volume] in Serum or Xmornu62-748KhfrohlxuAkron Children'S HospitalComment on above:ADA recommended reference rangeRandom Glucose Reference Range is dependent on time and content of last meal. Glucose of more than 200 mg/dL in a nonstressed, ambulatory subject supports the diagnosisof Diabetes Mellitus.Hematocrit Auto (Bld) [Volume fraction]Ordered By: Munir Morelos on 21-15-7108Cbzfuzloii (Bld) [Volume fraction]Hematocrit [Volume Fraction] of Blood by Automated trwxmCeg03.0-46.4FThe Surgical Hospital at SouthwoodsHemoglobin [Mass/volume] in BloodOrdered By: Munir Morelos on 50-03-0657Iuyvsudgpv (Bld) [Mass/Vol]Hemoglobin [Mass/volume] in BloodLow 11.8-15.4FThe Surgical Hospital at SouthwoodsLeukocytes [#/volume] corrected for nucleated erythrocytes in Blood by Automated counOrdered By: Munir Morelos on 59-18-2947BUI corrected for nucl RBC Auto (Bld) [#/Vol]Leukocytes [#/volume] corrected for nucleated erythrocytes in Blood by Automated coun3.8-11.6FThe Surgical Hospital at SouthwoodsLymphocytes Auto (Bld) [#/Vol]Ordered By: Munir Morelos on 09-92-4994Qxojdguuqbo (Bld) [#/Vol]Lymphocytes [#/volume] in Blood by Automated count1.00-4.8[facility] Children'S HospitalLymphocytes/100 WBC Auto (Bld)Ordered By: Munir Morelos on 29-03-6847Rinbocstktp/100 WBC (Bld)Lymphocytes/100 leukocytes in Blood by Automated count.[facility] HospitalMCH Auto (RBC) [Entitic mass]Ordered By: Munir Morelos on 82-80-8712GEM (RBC) [Entitic mass]MCH [Entitic mass] by Automated count24.7-34.3 [facility] HospitalMCHC Auto (RBC) [Mass/Vol]Ordered By: Munir Morelos on 45-07-9147EVAF (RBC) [Mass/Vol]MCHC [Mass/volume] by Automated count32.0-35.0[facility]S HospitalMCV Auto (RBC) [Entitic vol] Ordered By: Munir Morelos on 14-85-5872YIB (RBC) [Entitic vol]MCV [Entitic volume] by Automated fyflk81-751VcfhcksboAkron Children'S HospitalMonocyte distribution width [Entitic volume] in Blood by AutomatedOrdered By: Munir Morelos on 57-42-0726Aazrpviv distribution width Auto (Bld) [Entitic vol] Monocyte distribution width [Entitic volume] in Blood by AutomatedHigh0.00-20.00 [facility]S HospitalComment on above:For adults in ED, MDW > 20.0 may be associated with a higher risk of sepsis during the first 12 hrs of hospital admissionMonocytes Auto (Bld) [#/Vol]Ordered By: Munir Morelos on 63-69-6424Elqbpyboj (Bld) [#/Vol]Automated blood monocyte count0.0-0.8[facility]S HospitalMonocytes/100 WBC Auto (Bld)Ordered By: Munir Morelos on 98-42-4894Myoxcymeg/100 WBC (Bld)Automated monocyte %.[facility]'S HospitalNeutrophils Auto (Bld) [#/Vol]Ordered By: Munir Morelos on 92-01-0520Kffuwbsqqgh (Bld) [#/Vol]Neutrophils [#/volume] in Blood by Automated count1.8-7.7FThe Surgical Hospital at SouthwoodsNeutrophils/100 WBC Auto (Bld)Ordered By: Munir Morelos on 49-65-6104Ejxbsiizwkd/100 WBC (Bld)Automated neutrophil %.[facility]S HospitalNo Panel InformationOrdered By: Munir Morelos on 89-23-3360Dizalpnli GFR (CKD-EPI) 33.324 mL/MinAkron Children'S HospitalPharmacy Creatinine Clearance (Chem43.25[facility]'S HospitalNucleated erythrocytes [Presence] in Blood by Automated countOrdered By: Munir Morelos on 10-98-1898Xxhcxysjg RBC Auto Ql (Bld)Nucleated erythrocytes [Presence] in Blood by Automated count 0-0.5FThe Surgical Hospital at SouthwoodsPlatelet mean volume Auto (Bld) [Entitic vol]Ordered By: Munir Morelos on 75-67-5382Irpbymcg mean volume (Bld) [Entitic vol]Platelet mean volume [Entitic volume] in Blood by Automated count 6.3-10.7FThe Surgical Hospital at SouthwoodsPlatelets Auto (Bld) [#/Vol]Ordered By: Munir Morelos on 91-81-0984Glpvrzpmn (Bld) [#/Vol]Platelets [#/volume] in Blood by Automated ytkmg117-668KhqjpwqogAkron Children'S HospitalPotassium [Moles/volume] in Serum or PlasmaOrdered By: Munir Morelos on 08-21-2024 Potassium [Moles/Vol]Potassium [Moles/volume] in Serum or Plasma3.5-5.1FThe Surgical Hospital at SouthwoodsProtein [Mass/volume] in Serum or PlasmaOrdered By: Munir Morelos on 91-34-2602Guemwjy [Mass/Vol]Protein [Mass/volume] in Serum or Plasma6.4-8.9[facility]S HospitalRBC Auto (Bld) [#/Vol]Ordered By: Munir Morelos on 21-17-5733BAR (Bld) [#/Vol]Erythrocytes [#/volume] in Blood by Automated countLow3.60-5.00[facility] Community Hospitalerum or plasma albumin/globulin mass ratioOrdered By: Munir Morelos on 08-21-2024 Albumin/Globulin [Mass ratio]Serum or plasma albumin/globulin mass ratio [facility] Hospitalerum or plasma anion gap determinationOrdered By: Munir Morelos on 82-65-5178Ohgrp gap [Moles/Vol]Serum or plasma anion gap determination6.0-15.0[facility] Hospitalodium [Moles/volume] in Serum or PlasmaOrdered By: Munir Morelos on 05-29-7500Gzqjud [Moles/Vol] Sodium [Moles/volume] in Serum or Ggjwxw462-764XourkgrymAkron Children'S Hospital Urea nitrogen [Mass/volume] in Serum or PlasmaOrdered By: Munir Morelos on 39-41-6878Wniu nitrogen [Mass/Vol]Urea nitrogen [Mass/volume] in Serum or Plasma High7-25[facility]S HospitalWBC Auto (Bld) [#/Vol]Ordered By: Munir Morelos on 65-78-6160LTY (Bld) [#/Vol]Leukocytes [#/volume] in Blood by Automated count3.8-11.6FThe Surgical Hospital at SouthwoodsAlanine aminotransferase [Enzymatic activity/volume] in Serum or PlasmaOrdered By: Jorge Early on 19-63-0026FOC [Catalytic activity/Vol]Alanine aminotransferase [Enzymatic activity/volume] in Serum or Plasma752[facility]'S HospitalAlbumin [Mass/volume] in Serum or Plasma by Bromocresol green (BCG) dye binding methoOrdered By: Jorge Early on 20-53-3805Nsjkzsj BCG dye [Mass/Vol] Albumin [Mass/volume] in Serum or Plasma by Bromocresol green (BCG) dye binding metho3.5-5.7FThe Surgical Hospital at SouthwoodsAlkaline phosphatase [Enzymatic activity/volume] in Serum or PlasmaOrdered By: Jorge Early on 65-20-4159FJB [Catalytic activity/Vol]Alkaline phosphatase [Enzymatic activity/volume] in Serum or Ffihbi94-125ZeoldpecdAkron Children'S HospitalAspartate aminotransferase [Enzymatic activity/volume] in Serum or PlasmaOrdered By: Jorge Early on 27-09-4947CSH [Catalytic activity/Vol]Aspartate aminotransferase [Enzymatic activity/volume] in Serum or Pbnqmf71-01LlryhltsuAkron Children'S HospitalBasic Metabolic Panelon 75-65-0348Bdckn gap [Moles/Vol]11.6 mmol/LNormal6.0-15.0The [facility] Physician GroupComment on above:Performed By: #### CRP, BMP, ESR, CBC, HEPATIC ####[facility] [id number] [place] [address] USACalcium [Mass/Vol]10.2 mg/dLNormal8.6-10.3The [facility] Comment on above:Performed By: #### CRP, BMP, ESR, CBC, HEPATIC ####[facility] [address] [place] [address] USAChloride [Moles/Vol] 107 mmol/GZpbjdu82-888Qcv [facility] Physician GroupComment on above:Performed By: #### CRP, BMP, ESR, CBC, HEPATIC ####[address] [address] USACO2 [Moles/Vol]24.7 mmol/UNtyuuf00.0-31.0The [facility] Physician GroupComment on above:Performed By: #### CRP, BMP, ESR, CBC, HEPATIC ####[place] [address] USACreatinine [Mass/Vol]1.81 mg/dLHigh0.60-1.20The [facility]ician [facility] Comment on above:Performed By: #### CRP, BMP, ESR, CBC, HEPATIC ####[place] [address] USACreatinine Clr Calc Sssyjyow94.52NoECU Health North Hospital Physician [facility] MadisonComment on above:Performed By: #### CRP, BMP, ESR, CBC, HEPATIC ####[place] [address] USAEstimated GFR32.443 mL/MinNoECU Health North Hospital Physician [facility] MadisonComment on above:Performed By: #### CRP, BMP, ESR, CBC, HEPATIC ####[place] [address] USAGlucose [Mass/Vol]137 mg/jCVtpu28-377Rqg [facility] MadisonComment on above: Result Comment: Random Glucose Reference Range is dependent on time and content of last meal. Glucose of more than 200 mg/dL in a nonstressed, ambulatory subject supports the diagnosis of Diabetes Mellitus. ADA recommended reference rangePerformed By: #### CRP, BMP, ESR, CBC, HEPATIC ####[place] [id number] USAPotassium [Moles/Vol]4.3 mmol/LNormal3.5-5.1The [facility] Physician GroupComment on above:Performed By: #### CRP, BMP, ESR, CBC, HEPATIC ####[place] [address] USASodium [Moles/Vol]139 mmol/DMgoaka031-693Pvq [facility] Physician GroupComment on above:Performed By: #### CRP, BMP, ESR, CBC, HEPATIC ####[facility] [address] [place] [address] USAUrea nitrogen [Mass/Vol]68 mg/dLHigh7-25The [facility] Physician GroupComment on above:Performed By: #### CRP, BMP, ESR, CBC, HEPATIC ####[facility] [address] [place] [address] USABasophils Auto (Bld) [#/Vol] Ordered By: Jorge Early on 68-41-0327Krjlyarov (Bld) [#/Vol]Automated basophil count0.0-0.2FThe Surgical Hospital at SouthwoodsBasophils/100 WBC Auto (Bld)Ordered By: Jorge Early on 16-93-7848Gptuufdsj/100 WBC (Bld)Automated basophil %. [facility]S HospitalBilirubin.direct [Mass/volume] in Serum or PlasmaOrdered By: Jorge Early on 43-03-8265Jiyolwrjk.direct [Mass/Vol] Bilirubin.direct [Mass/volume] in Serum or PlasmaLow0.03-0.18FThe Surgical Hospital at SouthwoodsComment on above:If the DBIL is less than 0.1, IBIL is not able to becalculated.Bilirubin.total [Mass/volume] in Serum or PlasmaOrdered By: Jorge Early on 96-66-1323Cfjsicmip [Mass/Vol]Bilirubin.total [Mass/volume] in Serum or Plasma0.3-1.0[facility]S HospitalC reactive protein [Mass/volume] in Serum or PlasmaOrdered By: Jorge Early on 84-12-6709MDY [Mass/Vol]C reactive protein [Mass/volume] in Serum or PlasmaHigh0.0-0.5 [facility]S HospitalC-Reactive Proteinon 50-88-2314Q-Reactive Protein3.5 mg/dLHigh0.0-0.5The [facility] Physician GroupComment on above:Result Comment: PERFORMED BY:[facility] [place], [place] [phone] MEDICAL DIRECTORROBER SERRANO M.D. Performed By: #### CRP, BMP, ESR, CBC, HEPATIC ####[facility] [address] [place] [address] USACT abdomen pelvis w conon 68-24-9777CJ abdomen pelvis w conNormalThe [facility] Physician [facility] MadisonCalcium [Mass/volume] in Serum or PlasmaOrdered By: Jorge Early on 64-52-7729Rzcofag [Mass/Vol]Calcium [Mass/volume] in Serum or Plasma8.6-10.3FThe Surgical Hospital at SouthwoodsCarbon dioxide, total [Moles/volume] in Serum or PlasmaOrdered By: Jorge Early on 89-91-4909ZA3 [Moles/Vol]Carbon dioxide, total [Moles/volume] in Serum or Plasma 21.0-31.0[facility]S HospitalChloride [Moles/volume] in Serum or PlasmaOrdered By: Jorge Early on 83-37-9516Gkwiyhvh [Moles/Vol]Chloride [Moles/volume] in Serum or Zhugvw38-158TgpkwgxczAkron Children'S HospitalComplete Blood Count Auto Diffon 37-64-9623Ssrqccjsz (Bld) [#/Vol]0.0 10*3/uLNormal 0.0-0.2The [facility] Physician GroupComment on above:Performed By: #### CRP, BMP, ESR, CBC, HEPATIC ####[facility] [address] [place] [id number] USABasophils/100 WBC (Bld)0.4 %Normal.The [facility] Physician GroupComment on above:Performed By: #### CRP, BMP, ESR, CBC, HEPATIC ####[facility] [address] [place] [address] [place] Eosinophils (Bld) [#/Vol]0.3 10*3/uLNormal0.0-0.45The [facility] Comment on above:Performed By: #### CRP, BMP, ESR, CBC, HEPATIC ####[facility] [place], [place] [address] USAEosinophils/100 WBC (Bld)6.9 %Normal.The [facility] Physician GroupComment on above:Performed By: #### CRP, BMP, ESR, CBC, HEPATIC ####[place] [address] USAErythrocyte distribution width (RBC) [Ratio]14.5 % Kgxuqw51.9-15.3The [facility] Physician GroupComment on above:Performed By: #### CRP, BMP, ESR, CBC, HEPATIC ####[place] [address] USAHematocrit (Bld) [Volume fraction]33.9 %Low34.0-46.4 The [facility] Physician GroupComment on above:Performed By: #### CRP, BMP, ESR, CBC, HEPATIC ####[place] [address] USAHemoglobin (Bld) [Mass/Vol]11.3 g/dLLow11.8-15.4The [facility] Physician GroupComment on above:Performed By: #### CRP, BMP, ESR, CBC, HEPATIC ####[place] [address] [place] Lymphocytes (Bld) [#/Vol]1.1 10*3/uLNormal1.00-4.8The [facility] Comment on above:Performed By: #### CRP, BMP, ESR, CBC, HEPATIC ####[place] [address] USALymphocytes/100 WBC (Bld)25.4 %Normal.The [facility] Physician GroupComment on above:Performed By: #### CRP, BMP, ESR, CBC, HEPATIC ####[place] [address] USAMCH (RBC) [Entitic mass]30.5 cxOisuua20.7-34.3The [facility] Physician GroupComment on above:Performed By: #### CRP, BMP, ESR, CBC, HEPATIC ####[place] [address] USAMCV (RBC) [Entitic vol]91.9 hIKvbrph76-673Png [facility] Comment on above:Performed By: #### CRP, BMP, ESR, CBC, HEPATIC ####[place] [address] USAMean Corpuscular HGB Conc33.2 g/pJHcdtzr15.0-35.0The [facility] Physician GroupComment on above: Performed By: #### CRP, BMP, ESR, CBC, HEPATIC ####[place] [address] USAMonocytes (Bld) [#/Vol]0.3 10*3/uL Normal0.0-0.8The [facility] Physician GroupComment on above:Performed By: #### CRP, BMP, ESR, CBC, HEPATIC ####[place] [address] USAMonocytes/100 WBC (Bld)19.33 %Normal0.00-20.00The [facility] Physician GroupComment on above:Performed By: #### CRP, BMP, ESR, CBC, HEPATIC ####[place] [address] USAMonocytes/100 WBC (Bld)6.2 %Normal.The [facility] Physician GroupComment on above:Performed By: #### CRP, BMP, ESR, CBC, HEPATIC ####[place] [address] USANeutrophils (Bld) [#/Vol]2.6 10*3/uLNormal1.8-7.7The [facility] Physician GroupComment on above:Performed By: #### CRP, BMP, ESR, CBC, HEPATIC ####[place] [address] USANeutrophils/100 WBC (Bld)61.1 %Normal.The [facility] Physician GroupComment on above:Performed By: #### CRP, BMP, ESR, CBC, HEPATIC ####[place] [address] USANRBC% 0.1 /100{WBC}Normal0-0.5The [facility] Physician GroupComment on above:Performed By: #### CRP, BMP, ESR, CBC, HEPATIC ####[place] [address] USAPlatelet mean volume (Bld) [Entitic vol]10.1 fLNormal6.3-10.7The [facility] Physician GroupComment on above:Performed By: #### CRP, BMP, ESR, CBC, HEPATIC ####[place] [address] [place] [address] USAPlatelets (Bld) [#/Vol]182 10*3/bSTplwbv412-341Xdf [facility]ician GroupComment on above:Performed By: #### CRP, BMP, ESR, CBC, HEPATIC ####[place] [address] [place] [address] USARBC (Bld) [#/Vol]3.69 10*6/uLNormal3.60-5.00The [facility] Comment on above:Performed By: #### CRP, BMP, ESR, CBC, HEPATIC ####[place] [address] USAWBC (Bld) [#/Vol]4.3 10*3/uLNormal3.8-11.6The [facility] Physician GroupComment on above:Performed By: #### CRP, BMP, ESR, CBC, HEPATIC ####[place] [address] USACreatinine [Mass/volume] in Serum or PlasmaOrdered By: Jorge Early on 85-22-7229Zgjwrcsvdt [Mass/Vol]Creatinine [Mass/volume] in Serum or PlasmaHigh0.60-1.20[facility]S HospitalEosinophils Auto (Bld) [#/Vol]Ordered By: Jorge Early on 85-87-8895Kzgvhxoshzf (Bld) [#/Vol] Automated eosinophil count0.0-0.45[facility] Eosinophils/100 WBC Auto (Bld)Ordered By: Jorge Early on 08-11-2024 Eosinophils/100 WBC (Bld)Automated eosinophil %.[facility]S HospitalErythrocyte Sedimentation Rateon 92-79-1645VGQ (Bld) [Velocity]82 mm/hHigh 0-29The [facility] Physician GroupComment on above:Result Comment: PERFORMED BY:[facility] [place], [place] [phone] MEDICAL DIRECTORROBER SERRANO M.D.Performed By: #### CRP, BMP, ESR, CBC, HEPATIC ####[facility] [place] [address] USAErythrocyte distribution width Auto (RBC) [Ratio] Ordered By: Jorge Early on 43-59-8433Yocsuicyvyc distribution width (RBC) [Ratio]Erythrocyte distribution width [Ratio] by Automated count11.9-15.3 [facility]S HospitalErythrocyte sedimentation rate by Photometric methodOrdered By: Jorge Early on 66-64-6001LTA Photometric method (Bld) [Velocity]Erythrocyte sedimentation rate by Photometric method0-[facility]'S HospitalGlobulin Calc (S) [Mass/Vol]Ordered By: Jorge Early on 11-38-9057Cmvwkpll (S) [Mass/Vol]Serum globulin measurement by calculation (mass/volume)[facility]'S HospitalGlucose Glucometer (BldC) [Mass/Vol]Ordered By: Jorge Early on 68-98-6605Wbfyfok [Mass/Vol]Capillary blood glucose measurement by glucometer (mass/volume)[facility]S HospitalComment on above:Random Glucose Reference Range is dependent on time and content of last meal. Glucose of more than 200 mg/dL in a nonstressed, ambulatory subject supports the diagnosis of Diabetes Mellitus.Glucose Poct Glucometerson 40-96-6268Texyvrs [Mass/Vol]99 mg/dLNoECU Health North Hospital Physician GroupComment on above:Result Comment: Random Glucose Reference Range is dependent on time and content of last meal. Glucose of more than 200 mg/dL in a nonstressed, ambulatory subject supports the diagnosis of Diabetes Chris litus.PERFORMED BY:[place] [address] [place], [place] [phone] MEDICAL DIRECTORROBER SERRANO M.D. Performed By: #### GLULS ####Point of Care testing,Glucose [Mass/volume] in Serum or PlasmaOrdered By: Jorge Early on 36-22-9245Oxhjmpi [Mass/Vol]Glucose [Mass/volume] in Serum or YeqpvxOqbg60-538WrgclymjrAkron Children'S Hospital Comment on above:ADA recommended reference rangeRandom Glucose Reference Range is dependent on time and content of last meal. Glucose of more than 200 mg/dL in a nonstressed, ambulatory subject supports the diagnosisof Diabetes Mellitus. Hematocrit Auto (Bld) [Volume fraction]Ordered By: Jorge Early on 08-11-2024 Hematocrit (Bld) [Volume fraction]Hematocrit [Volume Fraction] of Blood by Automated qkyfmJoy10.0-46.4FThe Surgical Hospital at SouthwoodsHemoglobin [Mass/volume] in BloodOrdered By: Jorge Early on 40-99-3389Dkflwidxzb (Bld) [Mass/Vol]Hemoglobin [Mass/volume] in JenjiYni59.8-15.4FThe Surgical Hospital at SouthwoodsHepatic Panelon 37-39-2544Xcvgate [Mass/Vol]4.1 g/dLNormal3.5-5.7 The [facility] Physician GroupComment on above:Performed By: #### CRP, BMP, ESR, CBC, HEPATIC ####[facility] [address] [place] [address] USAAlbumin/Globulin [Mass ratio]1.2 {ratio}NormalThe [facility] Physician [facility] MadisonComment on above:Performed By: #### CRP, BMP, ESR, CBC, HEPATIC ####[facility] [address] [place] [address] USAALP [Catalytic activity/Vol]50 U/ETwiviv21-544Cca [facility] Physician GroupComment on above:Performed By: #### CRP, BMP, ESR, CBC, HEPATIC ####[facility] [address] [place] [address] USAALT [Catalytic activity/Vol]11 U/LNormal7-52The [facility] Physician GroupComment on above:Performed By: #### CRP, BMP, ESR, CBC, HEPATIC ####[facility] [address] [place] [address] USAAST [Catalytic activity/Vol]19 U/BCpvqfk75-27Ojr [facility] Physician GroupComment on above:Performed By: #### CRP, BMP, ESR, CBC, HEPATIC ####[place] [address] [place] [address] USABilirubin [Mass/Vol]0.4 mg/dLNormal0.3-1.0The [facility] Comment on above:Performed By: #### CRP, BMP, ESR, CBC, HEPATIC ####[place] [address] USABilirubin,Indirect0.4 mg/dLNormBroward Health North Physician [facility] MadisonComment on above:Performed By: #### CRP, BMP, ESR, CBC, HEPATIC ####[place] [address] USABilirubin.indirect [Mass/Vol]0.00 mg/dLLow0.03-0.18 The [facility] Physician GroupComment on above:Result Comment: If the DBIL is less than 0.1, IBIL is not able to be calculated.Performed By: #### CRP, BMP, ESR, CBC, HEPATIC ####[place] [address] USAGlobulin (S) [Mass/Vol]3.4 g/dLNormBroward Health North Physician [facility] Comment on above:Performed By: #### CRP, BMP, ESR, CBC, HEPATIC ####[place] [address] USAProtein [Mass/Vol]7.5 g/dLNormal6.4-8.9The [facility] MadisonComment on above:Performed By: #### CRP, BMP, ESR, CBC, HEPATIC ####[place] [address] USALeukocytes [#/volume] corrected for nucleated erythrocytes in Blood by Automated counOrdered By: Jorge Early on 97-30-6167DGO corrected for nucl RBC Auto (Bld) [#/Vol]Leukocytes [#/volume] corrected for nucleated erythrocytes in Blood by Automated coun3.8-11.6FThe Surgical Hospital at SouthwoodsLymphocytes Auto (Bld) [#/Vol]Ordered By: Jorge Early on 99-79-9560Ccicaqehtob (Bld) [#/Vol]Lymphocytes [#/volume] in Blood by Automated count1.00-4.8[facility]S HospitalLymphocytes/100 WBC Auto (Bld) Ordered By: Jorge Early on 06-57-6076Zgrtlugqcri/100 WBC (Bld)Lymphocytes/100 leukocytes in Blood by Automated count.[facility] CampusH Auto (RBC) [Entitic mass]Ordered By: Jorge Early on 43-43-9761RKJ (RBC) [Entitic mass]MCH [Entitic mass] by Automated count24.7-34.3FThe Surgical Hospital at SouthwoodsMCHC Auto (RBC) [Mass/Vol]Ordered By: Jorge Early on 87-02-2030HKMC (RBC) [Mass/Vol]MCHC [Mass/volume] by Automated count32.0-35.0[facility]S HospitalMCV Auto (RBC) [Entitic vol]Ordered By: Jorge Early on 08-11-2024 MCV (RBC) [Entitic vol]MCV [Entitic volume] by Automated -195IyyzvklzmAkron Children'S HospitalMonocyte distribution width [Entitic volume] in Blood by AutomatedOrdered By: Jorge Early on 69-73-9245Yepowiev distribution width Auto (Bld) [Entitic vol]Monocyte distribution width [Entitic volume] in Blood by Automated0.00-20.00[facility]S HospitalMonocytes Auto (Bld) [#/Vol] Ordered By: Jorge Early on 14-76-0064Akwnmquxs (Bld) [#/Vol]Automated blood monocyte count0.0-0.8[facility]S HospitalMonocytes/100 WBC Auto (Bld)Ordered By: Jorge Early on 19-85-9776Ldjizbsii/100 WBC (Bld)Automated monocyte %.[facility]'S HospitalNeutrophils Auto (Bld) [#/Vol] Ordered By: Jorge Early on 12-09-1443Icuiozcnnmg (Bld) [#/Vol]Neutrophils [#/volume] in Blood by Automated count1.8-7.7FThe Surgical Hospital at Southwoods Neutrophils/100 WBC Auto (Bld)Ordered By: Jorge Early on 08-11-2024 Neutrophils/100 WBC (Bld)Automated neutrophil %.[facility] CenterNo Panel InformationOrdered By: Jorge Early on 44-91-8906Parebckxg GFR (CKD-EPI)32.443 mL/MinAkron Children'S HospitalPharmacy Creatinine Clearance (Chem41.52[facility]'S HospitalNucleated erythrocytes [Presence] in Blood by Automated countOrdered By: Jorge Early on 08-11-2024 Nucleated RBC Auto Ql (Bld)Nucleated erythrocytes [Presence] in Blood by Automated count0-0.5FThe Surgical Hospital at SouthwoodsPlatelet mean volume Auto (Bld) [Entitic vol]Ordered By: Jorge Early on 93-17-3030Agondyjg mean volume (Bld) [Entitic vol]Platelet mean volume [Entitic volume] in Blood by Automated count6.3-10.7FThe Surgical Hospital at SouthwoodsPlatelets Auto (Bld) [#/Vol] Ordered By: Jorge Early on 34-25-0128Cafgxgsmq (Bld) [#/Vol]Platelets [#/volume] in Blood by Automated ohmbc092-430SrtrctdupAkron Children'S Hospital Potassium [Moles/volume] in Serum or PlasmaOrdered By: Jorge Early on 15-75-1855Nlnnytcje [Moles/Vol]Potassium [Moles/volume] in Serum or Plasma 3.5-5.1FThe Surgical Hospital at SouthwoodsProtein [Mass/volume] in Serum or Plasma Ordered By: Jorge Early on 92-47-4220Kphbgkj [Mass/Vol]Protein [Mass/volume] in Serum or Plasma6.4-8.9[facility]S HospitalRBC Auto (Bld) [#/Vol] Ordered By: Jorge Early on 28-18-2288WNU (Bld) [#/Vol]Erythrocytes [#/volume] in Blood by Automated count3.60-5.00[facility] Hospitalerum or plasma albumin/globulin mass ratioOrdered By: Jorge Early on 08-11-2024 Albumin/Globulin [Mass ratio]Serum or plasma albumin/globulin mass ratio [facility] Hospitalerum or plasma anion gap determinationOrdered By: Jorge Early on 16-17-9623Tafpw gap [Moles/Vol]Serum or plasma anion gap determination6.0-15.0[facility] Hospitalerum or plasma non- glucuronidated bilirubin measurement (mass/volume)Ordered By: Jorge Early on 28-06-0549Gdalmzqwi.indirect [Mass/Vol]Serum or plasma non-glucuronidated bilirubin measurement (mass/volume)[facility] Hospitalodium [Moles/volume] in Serum or PlasmaOrdered By: Jorge Early on 79-62-3338Zediol [Moles/Vol]Sodium [Moles/volume] in Serum or Dyvwfu235-216BimiyboibAkron Children'S HospitalUrea nitrogen [Mass/volume] in Serum or PlasmaOrdered By: Jorge Early on 61-72-3123Imya nitrogen [Mass/Vol]Urea nitrogen [Mass/volume] in Serum or PlasmaHigh7-25[facility]S HospitalWBC Auto (Bld) [#/Vol]Ordered By: Jorge Early on 19-45-2230DNR (Bld) [#/Vol]Leukocytes [#/volume] in Blood by Automated count3.8-11.6FThe Surgical Hospital at SouthwoodsOffice Visiton 19-18-4798Zxurgn-up [id number] [facility]Mary [facility] 1970 F Date Provider Department Center 07/07/2024 Leyda-REBECA VALADEZ [facility] Family History Problem Relation Age of Onset Angina Mother Heart attack Mother Heart attack Maternal Grandfather Family Status - Relation Status Age at Mother Maternal Grandfather Level of Service:39378 NM OFFICE/OUTPATIENT ESTABLISHED MOD MDM 30 [facility] HospitalGLUCOSE POCT GLUCOMETERSon 82-71-0568Nvbbbpt [Mass/Vol]73 mg/dLNOMS HealthcareComment on above:Random Glucose Reference Range is dependent on time and content of last meal. Glucose of more than 200 mg/dL in a nonstressed, ambulatory subject supports the diagnosis of Diabetes Mellitus. [facility]OMS HealthcareGlucose [Mass/Vol]93 mg/dLNOMS HealthcareComment on above:Random Glucose Reference Range is dependent on time and content of last meal. Glucose of more than 200 mg/dL in a nonstressed, ambulatory subject supports the diagnosis of Diabetes Mellitus. [facility]OMS HealthcareGlucose [Mass/Vol]79 mg/dLNOMS HealthcareComment on above:Random Glucose Reference Range is dependent on time and content of last meal. Glucose of more than 200 mg/dL in a nonstressed, ambulatory subject supports the diagnosis of Diabetes Mellitus. NOMS HealthcareGlucose Poct Glucometerson 00-97-3244Wsipoba [Mass/Vol]73 mg/dL NormalThe [facility] Physician GroupComment on above:Result Comment: Random Glucose Reference Range is dependent on time and content of last meal. Glucose of more than 200 mg/dL in a nonstressed, ambulatory subject supports the diagnosis of Diabetes Mellitus.PERFORMED BY:[address] ADDISONDAV[place], [place] [phone] MEDICAL DIRECTORROBER SERRANO M.D.Performed By: #### GLULS ####Point of Care testing,Glucose [Mass/Vol]93 mg/dLNormalThe [facility] Physician GroupComment on above:Result Comment: Random Glucose Reference Range is dependent on time and content of last meal. Glucose of more than 200 mg/dL in a nonstressed, ambulatory subject supports the diagnosis of Diabetes Mellitus.PERFORMED BY:[address] [place], [place] [phone] MEDICAL DIRECTORROBER SERRANO M.D. Performed By: #### GLULS ####Point of Care testing,Glucose [Mass/Vol]79 mg/dL NormalThe [facility] Physician GroupComment on above:Result Comment: Random Glucose Reference Range is dependent on time and content of last meal. Glucose of more than 200 mg/dL in a nonstressed, ambulatory subject supports the diagnosis of Diabetes Mellitus.PERFORMED BY:[address] ADDISONRIDGEDALE, [place] [phone] MEDICAL DIRECTORROBER SERRANO M.D.Performed By: #### GLULS ####Point of Care testing,Basic Metabolic Panelon 80-66-8104Rmsgm gap [Moles/Vol]17.0 mmol/LHigh 6.0-15.0The [facility] Physician GroupComment on above:Performed By: #### BMP, CBC ####[address] [address] [facility] Calcium [Mass/Vol]9.2 mg/dLNormal8.6-10.3The [facility] Physician GroupComment on above:Result Comment: PERFORMED BY:[address] [address] [address] [place], [place] [phone] MEDICAL DIRECTORROBER THORNTON M.D.Performed By: #### BMP, CBC ####[address] [place] [address] USAChloride [Moles/Vol]105 mmol/NMtgqlj21-801Ofb [facility] Physician GroupComment on above:Performed By: #### BMP, CBC ####[address] [address] USACO2 [Moles/Vol]22.4 mmol/VSndxcl42.0-31.0The [facility] Physician GroupComment on above:Performed By: #### BMP, CBC ####[address] [address] USACreatinine [Mass/Vol]1.09 mg/dLNormal0.60-1.20The [facility] Physician GroupComment on above:Performed By: #### BMP, CBC ####[address] [address] [place] Estimated GFR59.995 mL/MinNormalThe [facility] Physician GroupComment on above: Performed By: #### BMP, CBC ####[address] [address] USAGlucose [Mass/Vol]228 mg/kHGwjl31-489Cbc [facility] Physician GroupComment on above:Result Comment: Random Glucose Reference Range is dependent on time and content of last meal. Glucose of more than 200 mg/dL in a nonstressed, ambulatory subject supports the diagnosis of Diabetes Mellitus. ADA recommended reference rangePerformed By: #### BMP, CBC ####[place] [address] USAPotassium [Moles/Vol] 3.4 mmol/LLow3.5-5.1The [facility] Physician GroupComment on above:Performed By: #### BMP, CBC ####[address] USASodium [Moles/Vol]141 mmol/JCjjjrq823-460Ltr [facility] Comment on above:Performed By: #### BMP, CBC ####[address] [address] USAUrea nitrogen [Mass/Vol]17 mg/dLNormal 7-25The [facility] Physician GroupComment on above:Performed By: #### BMP, CBC ####[place] [address] [facility] Complete Blood Count Auto Diffon 12-64-2283Zhrxflpwq (Bld) [#/Vol]0.1 10*3/uL Normal0.0-0.2The [facility] Physician GroupComment on above:Result Comment: PERFORMED BY:[address] [place], [place] [phone] MEDICAL DIRECTORROBER SERRANO M.D. Performed By: #### BMP, CBC ####[address] [place] USABasophils/100 WBC (Bld)0.9 %Normal.The [facility] Physician GroupComment on above:Performed By: #### BMP, CBC ####[place] [address] USAEosinophils (Bld) [#/Vol]0.5 10*3/uLHigh0.0-0.45The [facility] Physician GroupComment on above: Performed By: #### BMP, CBC ####[address] [address] USAEosinophils/100 WBC (Bld)8.0 %Normal.The [facility] Physician GroupComment on above:Performed By: #### BMP, CBC ####[place] [address] USAErythrocyte distribution width (RBC) [Ratio]15.0 %Bhldth16.9-15.3The [facility] Physician GroupComment on above:Performed By: #### BMP, CBC ####[address] [place] [address] USAHematocrit (Bld) [Volume fraction] 33.9 %Low34.0-46.4The [facility] Physician GroupComment on above:Performed By: #### BMP, CBC ####[place] [address] USAHemoglobin (Bld) [Mass/Vol]11.2 g/dLLow11.8-15.4The [facility] Physician GroupComment on above:Performed By: #### BMP, CBC ####[place] [address] USALymphocytes (Bld) [#/Vol]1.6 10*3/uLNormal1.00-4.8The [facility] Physician GroupComment on above:Performed By: #### BMP, CBC ####[place] [address] USALymphocytes/100 WBC (Bld)25.4 %Normal.The [facility] Comment on above:Performed By: #### BMP, CBC ####[place] [address] USAMCH (RBC) [Entitic mass]28.8 pgNormal 24.7-34.3The [facility] Physician GroupComment on above:Performed By: #### BMP, CBC ####[place] [address] USAMCV (RBC) [Entitic vol]87.0 nXTwpxop73-302Asp [facility] Physician GroupComment on above:Performed By: #### BMP, CBC ####[address] [address] USAMean Corpuscular HGB Conc33.1 g/bEYbxwid89.0-35.0The [facility] Physician GroupComment on above:Performed By: #### BMP, CBC ####[place] [address] [place] Monocytes (Bld) [#/Vol]0.3 10*3/uLNormal0.0-0.8The [facility] Comment on above:Performed By: #### BMP, CBC ####[address] [address] USAMonocytes/100 WBC (Bld)4.8 %Normal.The [facility] Physician GroupComment on above:Performed By: #### BMP, CBC ####[address] [address] [place] Neutrophils (Bld) [#/Vol]3.9 10*3/uLNormal1.8-7.7The [facility] Comment on above:Performed By: #### BMP, CBC ####[address] [address] USANeutrophils/100 WBC (Bld)60.9 %Normal. The [facility] Physician GroupComment on above:Performed By: #### BMP, CBC ####[address] [address] USANRBC% 0.1 /100{WBC}Normal0-0.5The [facility] Physician GroupComment on above:Performed By: #### BMP, CBC ####[address] [address] USAPlatelet mean volume (Bld) [Entitic vol]9.9 fLNormal6.3-10.7The [facility] Physician GroupComment on above:Performed By: #### BMP, CBC ####[address] [address] [place] Platelets (Bld) [#/Vol]192 10*3/jBIdlgfe187-550Eud [facility] Comment on above:Performed By: #### BMP, CBC ####[address] [address] USARBC (Bld) [#/Vol]3.89 10*6/uLNormal 3.60-5.00The [facility] Physician GroupComment on above:Performed By: #### BMP, CBC ####[address] [address] USAWBC (Bld) [#/Vol]6.3 10*3/uLNormal3.8-11.6The [facility] Physician GroupComment on above:Performed By: #### BMP, CBC ####[facility] [address] [place] [address] USAGLUCOSE POCT GLUCOMETERSon 11-51-4316Mbvrbuj [Mass/Vol]133 mg/dLNOND HealthcareComment on above:Random Glucose Reference Range is dependent on time and content of last meal. Glucose of more than 200 mg/dL in a nonstressed, ambulatory subject supports the diagnosis of Diabetes Mellitus. [facility] HospitalXfjfnicjavANQOLND6RQXN HealthcareComment on above:Glu2: WILL NOTIFY DR/RN Glucose [Mass/Vol]58 mg/dLCritically lowNOND HealthcareComment on above:Random Glucose Reference Range is dependent on time and content of last meal. Glucose of more than 200 mg/dL in a nonstressed, ambulatory subject supports the diagnosis of Diabetes Mellitus. Interpretation and review of laboratory resultsAbnormalAtrium Health SouthParkGlucose [Mass/Vol]125 mg/dLNOND HealthcareComment on above:Random Glucose Reference Range is dependent on time and content of last meal. Glucose of more than 200 mg/dL in a nonstressed, ambulatory subject supports the diagnosis of Diabetes Mellitus. [address] HealthcareComment on above:Glu2: Will Repeat Test Glucose [Mass/Vol]63 mg/dLNOND HealthcareComment on above:Random Glucose Reference Range is dependent on time and content of last meal. Glucose of more than 200 mg/dL in a nonstressed, ambulatory subject supports the diagnosis of Diabetes Mellitus. [facility] HealthcareGlucose [Mass/Vol]134 mg/dLNOND HealthcareComment on above:Random Glucose Reference Range is dependent on time and content of last meal. Glucose of more than 200 mg/dL in a nonstressed, ambulatory subject supports the diagnosis of Diabetes Mellitus. [facility] HealthcareGlucose [Mass/Vol]155 mg/dLNOND HealthcareComment on above:Random Glucose Reference Range is dependent on time and content of last meal. Glucose of more than 200 mg/dL in a nonstressed, ambulatory subject supports the diagnosis of Diabetes Mellitus. [facility] HealthcareGlucose [Mass/Vol]116 mg/dLNOND HealthcareComment on above:Random Glucose Reference Range is dependent on time and content of last meal. Glucose of more than 200 mg/dL in a nonstressed, ambulatory subject supports the diagnosis of Diabetes Mellitus. [address]Comment on above:Glu2: Result Not ConfirmedInterpretation and review of laboratory resultsAb51 Price StreetComment on above:Glu2: FOLLOW HYPOGLYCEMIC Glucose [Mass/Vol]45 mg/dLCritically lowLee's Summit HospitalComment on above:Random Glucose Reference Range is dependent on time and content of last meal. Glucose of more than 200 mg/dL in a nonstressed, ambulatory subject supports the diagnosis of Diabetes Mellitus. Interpretation and review of laboratory resultsAbNovant Health/NHRMCGlucose [Mass/Vol]216 mg/dLLee's Summit HospitalComment on above:Random Glucose Reference Range is dependent on time and content of last meal. Glucose of more than 200 mg/dL in a nonstressed, ambulatory subject supports the diagnosis of Diabetes Mellitus. [facility] HospitalGlucose Poct Glucometerson 03-41-1252Qhildqu [Mass/Vol]133 mg/dL NormalAdventhealth Zephyrhills Physician GroupComment on above:Result Comment: Random Glucose Reference Range is dependent on time and content of last meal. Glucose of more than 200 mg/dL in a nonstressed, ambulatory subject supports the diagnosis of Diabetes Mellitus.PERFORMED BY:[address] [place], [place] [phone] MEDICAL DIRECTORROBER SERRANO M.D.Performed By: #### GLULS ####Point of Care testing,Jfcikvt9UvclvxPpt[address] Physician GroupComment on above:Result Comment: Glu2: WILL NOTIFY /LEONELAERFORMED BY:[address] [address] [place]HH[place], [place] [phone] MEDICAL DIRECTORROBER SERRANO M.D.Performed By: #### GLULS ####Point of Care testing,Glucose [Mass/Vol]58 mg/dLOff scale lowAdventhealth Zephyrhills Physician Group Comment on above:Result Comment: Random Glucose Reference Range is dependent on time and content of last meal. Glucose of more than 200 mg/dL in a nonstressed, ambulatory subject supports the diagnosis of Diabetes Mellitus.Performed By: #### GLULS ####Point of Care testing,Glucose [Mass/Vol]125 mg/dLNaval Hospital Pensacola Physician GroupComment on above:Result Comment: Random Glucose Reference Range is dependent on time and content of last meal. Glucose of more than 200 mg/dL in a nonstressed, ambulatory subject supports the diagnosis of Diabetes Mellitus.PERFORMED BY:[address] [place], [place] [phone] MEDICAL DIRECTORMOHUNT [facility]ORIAL [facility] Yumiko THORNTON M.D.Performed By: #### GLULS ####Point of Care testing,Cyvvqgo9Huslxz [facility]yrhills Physician GroupComment on above:Result Comment: Glu2: Will Repeat TestPERFORMED BY:[address] [place], [place] [phone] MEDICAL DIRECTORMORUPALI SERRANO M.D. Performed By: #### GLULS ####Point of Care testing,Result Comment: Glu2: Result Not ConfirmedPERFORMED BY:[address] MARIOH[place], [place] [phone] MEDICAL DIRECTORDENNISKINGSBROOK JEWISH MEDICAL CENTEREUGENIO THORNTON M.D.Glucose [Mass/Vol]63 mg/dLNoECU Health North Hospital Physician Group Comment on above:Result Comment: Random Glucose Reference Range is dependent on time and content of last meal. Glucose of more than 200 mg/dL in a nonstressed, ambulatory subject supports the diagnosis of Diabetes Mellitus.Performed By: #### GLULS ####Point of Care testing,Glucose [Mass/Vol]134 mg/dLNaval Hospital Pensacola Physician GroupComment on above:Result Comment: Random Glucose Reference Range is dependent on time and content of last meal. Glucose of more than 200 mg/dL in a nonstressed, ambulatory subject supports the diagnosis of Diabetes Mellitus.PERFORMED BY:[address] [place], [place] [phone] MEDICAL DIRECTORMORUPALI THORNTON M.D.Performed By: #### GLULS ####Point of Care testing,Glucose [Mass/Vol]155 mg/dLNaval Hospital Pensacola Physician GroupComment on above:Result Comment: Random Glucose Reference Range is dependent on time and content of last meal. Glucose of more than 200 mg/dL in a nonstressed, ambulatory subject supports the diagnosis of Diabetes Mellitus.PERFORMED BY:[address] [place], [place] [phone] MEDICAL DIRECTORMORUPALI SERRANO M.D.Performed By: #### GLULS ####Point of Care testing,Glucose [Mass/Vol]43 mg/dLMadison County Health Care SystemComment on above: Random Glucose Reference Range is dependent on time and content of last meal. Glucose of more than 200 mg/dL in a nonstressed, ambulatory subject supports the diagnosis of Diabetes Mellitus. Result Comment: Random Glucose Reference Range is dependent on time and content of last meal. Glucose of more than 200 mg/dL in a nonstressed, ambulatory subject supports the diagnosis of Diabetes Mellitus.Performed By: #### GLULS ####Point of Care testing,Glucose [Mass/Vol]116 mg/dLNaval Hospital Pensacola Physician GroupComment on above:Result Comment: Random Glucose Reference Range is dependent on time and content of last meal. Glucose of more than 200 mg/dL in a nonstressed, ambulatory subject supports the diagnosis of Diabetes Chris litus.PERFORMED BY:[address] [place], [place] [phone] MEDICAL DIRECTORMORUPALI SERRANO M.D. Performed By: #### GLULS ####Point of Care testing,Kpcvuim6QbzoizSqs [facility] Physician GroupComment on above:Result Comment: Glu2: FOLLOW HYPOGLYCEMICPERFORMED BY:[address] [place], [place] [phone] MEDICAL DIRECTORROBER THORNTON M.D.Performed By: #### GLULS ####Point of Care testing,Glucose [Mass/Vol]45 mg/dLOff scale lowThe [facility] Physician GroupComment on above: Result Comment: Random Glucose Reference Range is dependent on time and content of last meal. Glucose of more than 200 mg/dL in a nonstressed, ambulatory subject supports the diagnosis of Diabetes Mellitus.Performed By: #### GLULS ####Point of Care testing,Glucose [Mass/Vol]216 mg/dLNormalThCaribou Memorial Hospital Physician GroupComment on above:Result Comment: Random Glucose Reference Range is dependent on time and content of last meal. Glucose of more than 200 mg/dL in a nonstressed, ambulatory subject supports the diagnosis of Diabetes Chris litus.PERFORMED BY:[address] [place], [place] [phone] MEDICAL DIRECTORROBER SERRANO M.D. Performed By: #### GLULS ####Point of Care testing,[facility] 23-17-2302OUdrwddQnd [place] [facility] MadisonAutomated basophil %Ordered By: Mc Roque on 98-91-4738Pkpkmhwcw/100 WBC (Bld)1.1 %Normal.[facility] Comment on above:Performed By: #### CBC, BMP ####[facility] [address] [place] [address] USAAutomated basophil countOrdered By: Mc Roque on 10-58-3469Fqkoqtyuy (Bld) [#/Vol]0.0 10*3/uLNormal0.0-0.2 [facility] HospitalComment on above:Result Comment: PERFORMED BY:[address] M[address] ADDISONRIDGED[place], [place] [phone] MEDICAL DIRECTORMEERA GRIFFITHS M.D.Performed By: #### CBC, BMP ####[facility] [address] [place] [address] [facility] Automated blood monocyte countOrdered By: Mc Roque on 04-05-2024 Monocytes (Bld) [#/Vol]0.3 10*3/uLNormal0.0-0.8[facility] Comment on above:Performed By: #### CBC, BMP ####[facility] [place] [address] USAAutomated eosinophil %Ordered By: Mc Roque on 30-93-6897Jocaerrumzg/100 WBC (Bld)4.6 %Normal.[facility]S HospitalComment on above:Performed By: #### CBC, BMP ####[address] [address] [place] Automated eosinophil countOrdered By: Mc Roque on 43-57-6023Mshlturpomx (Bld) [#/Vol]0.2 10*3/uLNormal0.0-0.45[facility] HospitalComment on above:Performed By: #### CBC, BMP ####[place] [address] USAAutomated monocyte %Ordered By: Mc Roque on 71-23-1960Dgoqhigta/100 WBC (Bld)8.4 %Normal.[facility]'S HospitalComment on above:Performed By: #### CBC, BMP ####[address] [address] USAAutomated neutrophil %Ordered By: Mc Roque on 73-57-8271Jxkduloyxts/100 WBC (Bld)61.5 % Normal.[facility]S HospitalComment on above:Performed By: #### CBC, BMP ####[address] [address] [place] Bacteria [Presence] in Urine sediment by Light microscopyOrdered By: PROVIDER TEMP on 19-30-7730Bvxboxgk LM Ql (Urine sed)None seen [HPF]None SeenAkron Children'S HospitalBasic Metabolic Panelon 13-68-8020Vuhqqcxtuu Clr Calc Bsubvumd38.95NoECU Health North Hospital Physician GroupComment on above:Result Comment: PERFORMED BY:[address] [place], [place] [phone] MEDICAL DIRECTORMEERA GRIFFITHS M.D.Performed By: #### CBC, BMP ####[address] [place] [address] USAGFR/1.73 sq M.predicted MDRD (S/P/Bld) [Vol rate/Area]mL/min/{1.73_m2}Normal The [facility] MadisonComment on above:Performed By: #### CBC, BMP ####[address] [place] [address] USABeta Hydroxybuterateon 73-70-3210Nidi Hydroxybuterate1.04 mmol/LHigh0.02-0.27The [facility] Physician [facility] MadisonComment on above:Result Comment: PERFORMED BY:[address] [place], [place] [phone] MEDICAL DIRECTORMEERA GRIFFITHS M.D.Performed By: #### BHOB ####[address] [address] USABeta hydroxybutyrate [Moles/volume] in Serum or PlasmaOrdered By: Mc Roque on 11-43-3118Kcvk hydroxybutyrate [Moles/Vol]1.04 mmol/LHigh0.02-0.27[facility]S HospitalBilirubin Test strip Ql (U)Ordered By: PROVIDER TEMP on 04-05-2024 Bilirubin Ql (U)NegativeNegativeAkron Children'S HospitalCT abdomen pelvis w conon 32-26-6804WG abdomen pelvis w conNormalSelect Specialty HospitalCalcium [Mass/volume] in Serum or PlasmaOrdered By: Mc Roque on 87-94-5390Sqzxuhq [Mass/Vol]9.4 mg/dLNormal8.6-10.3FThe Surgical Hospital at SouthwoodsComment on above:Performed By: #### CBC, BMP ####[address] [place] [address] USACarbon dioxide, total [Moles/volume] in Serum or PlasmaOrdered By: Mc Roque on 71-55-9852GF8 [Moles/Vol]20.4 mmol/LLow21.0-31.0[facility]S HospitalComment on above:Performed By: #### CBC, BMP ####[address] [address] USAChloride [Moles/volume] in Serum or PlasmaOrdered By: Mc Roque on 14-74-0359Slddipgu [Moles/Vol]97 mmol/LNdi97-905 [facility]S HospitalComment on above:Performed By: #### CBC, BMP ####[place] [address] USAColor of Urine by AutoOrdered By: JESSE IGLESIAS on 70-67-9270Atwgc (U)Light-yellow NormalYellowAkron Children'S HospitalComment on above:Order Comment: Name Collection Type:: Clean-Voided MidstreamPerformed By: #### ADDONUAPLUS ####[place] [address] [facility] Complete Blood Count Auto Diffon 86-46-2259Xwtd Corpuscular HGB Conc32.9 g/dL Ammtnl52.0-35.0The [facility] Physician GroupComment on above:Performed By: #### CBC, BMP ####[place] [address] USAMonocytes/100 WBC (Bld)19.15 %Normal0.00-20.00The [facility] Comment on above:Performed By: #### CBC, BMP ####[place] [address] USANRBC%0.1 /100{WBC}Normal0-0.5The [facility] Physician GroupComment on above:Performed By: #### CBC, BMP ####[address] Creatinine [Mass/volume] in Serum or PlasmaOrdered By: Mc Roque on 44-92-3622Xmljtvgbho [Mass/Vol]1.08 mg/dLNormal0.60-1.20[facility]S HospitalComment on above:Performed By: #### CBC, BMP ####[address] [place] [address] USADipstick and Microscopicon 92-23-2152Opplsqhl,UrineNone SeenNormalNone SeenThe [facility] Physician GroupComment on above:Order Comment: Name Collection Type:: Clean- Voided MidstreamResult Comment: PERFORMED BY:[address] [place], [place] [phone] MEDICAL DIRECTORMEERA GRIFFITHS M.D.Performed By: #### ADDONUAPLUS ####[address] [address] USABilirubin,UrineNegativeNormal NegativeThe [facility] Physician GroupComment on above:Order Comment: Name Collection Type:: Clean-Voided MidstreamPerformed By: #### ADDONUAPLUS ####[address] [place] [address] USAGlucose Ql (U)>=1000Williamson Memorial HospitalNoECU Health North Hospital Physician GroupComment on above:Order Comment: Name Collection Type:: Clean-Voided MidstreamPerformed By: #### ADDONUAPLUS ####[address] [address] USANitrite,UrineNegativeNormalNegativeAdventhealth Zephyrhills Physician GroupComment on above:Order Comment: Name Collection Type:: Clean-Voided MidstreamPerformed By: #### ADDONUAPLUS ####[address] [address] USAOccult Blood,UrineNegativeNormalNegativeAdventhealth Zephyrhills Physician GroupComment on above:Order Comment: Name Collection Type:: Clean-Voided MidstreamResult Comment: PERFORMED BY:[address] [place], [place] [phone] MEDICAL NIKI GRIFFITHS M.D.Performed By: #### ADDONUAPLUS ####[address] [place] [address] USAProtein,UrineTraceHighNegative The [facility] Physician GroupComment on above:Order Comment: Name Collection Type:: Clean-Voided MidstreamPerformed By: #### ADDONUAPLUS ####[address] [address] USARBC,Uzwjy6-1Vfelyp2-2 The [facility] Physician GroupComment on above:Order Comment: Name Collection Type:: Clean-Voided MidstreamPerformed By: #### ADDONUAPLUS ####[place] [address] USASpecificy Hall Summit,Urine1.026Zllpbh1.001-1.030The [facility] Physician GroupComment on above:Order Comment: Name Collection Type:: Clean-Voided MidstreamPerformed By: #### ADDONUAPLUS ####[place] [address] USASquamous Epithelial Cell,Pxfbu3-3Mcxwhm4-6Ynr [facility] Physician GroupComment on above:Order Comment: Name Collection Type:: Clean-Voided MidstreamPerformed By: #### ADDONUAPLUS ####[place] [address] USAUrobilinogen,UrineNormalNormalNormalThe [facility] Physician GroupComment on above:Order Comment: Name Collection Type:: Clean-Voided MidstreamPerformed By: #### ADDONUAPLUS ####[address] [address] USAWBC,Vsxyp3-5Uyyt6-1Nuf [facility] Physician GroupComment on above:Order Comment: Name Collection Type:: Clean-Voided MidstreamPerformed By: #### ADDONUAPLUS ####[address] [address] USAEpithelial cells.squamous [#/area] in Urine sediment by Microscopy high power fieldOrdered By: PROVIDER TEMP on 13-53-8745Dpfuoxjdtf cells.squamous LM.HPF (Urine sed) [#/Area]1-2 [HPF] 0-2FThe Surgical Hospital at SouthwoodsErythrocyte distribution width [Ratio] by Automated countOrdered By: Mc Roque on 81-89-3510Nxaiagguhou distribution width (RBC) [Ratio]14.9 %Ijnubl45.9-15.3FThe Surgical Hospital at SouthwoodsComment on above:Performed By: #### CBC, BMP ####[place] [address] USAErythrocytes [#/area] in Urine sediment by Microscopy high power fieldOrdered By: PROVIDER TEMP on 04-05-2024 RBC LM.HPF (Urine sed) [#/Area]1-2 [HPF]0-4FThe Surgical Hospital at Southwoods Erythrocytes [#/volume] in Blood by Automated countOrdered By: Mc Roque on 53-99-2410VLN (Bld) [#/Vol]3.44 10*6/uLLow3.60-5.00[facility]S HospitalComment on above:Performed By: #### CBC, BMP ####[facility] [place] [address] USAGlucose [Mass/volume] in Serum or PlasmaOrdered By: Mc Roque on 63-41-6486Ltkcpjt [Mass/Vol] 694 mg/dLOff scale drmy40-759QfntxvmcxAkron Children'S HospitalComment on above: Critical Result Called to and read back by: JESUS MORSE at: 04/05/2024 21:29:55 by:[id number] recommended reference rangeRandom Glucose Reference Range is dependent on time and content of last meal. Glucose of more than 200 mg/dL in a nonstressed, ambulatory subject supports the diagnosis of Diabetes Mellitus. Result Comment: Critical Result Called to and read back by: JESUS MORSE at: 04/05/2024 21:29:55 by:[id number] Random Glucose Reference Range is dependent on time and content of last meal. Glucose of more than 200 mg/dL in a nonstressed, ambulatory subject supports the diagnosis of Diabetes Mellitus. ADA recommended reference rangePerformed By: #### CBC, BMP ####[facility] [place] [address] USAGlucose [Mass/volume] in Urine by Test stripOrdered By: JESSE IGLESIAS on 97-85-9250Izwrwvf Test strip (U) [Mass/Vol] >=1000 mg/dLHighNormalAkron Children'S HospitalHematocrit [Volume Fraction] of Blood by Automated countOrdered By: Mc Roque on 04-05-2024 Hematocrit (Bld) [Volume fraction]31.1 %Low34.0-46.4FThe Surgical Hospital at SouthwoodsComment on above:Performed By: #### CBC, BMP ####[address] [address] USAHemoglobin Test strip Ql (U) Ordered By: PROVIDER TEMP on 58-70-4277Uthwaugowq Ql (U)NegativeNegative [facility]'S HospitalHemoglobin [Mass/volume] in BloodOrdered By: Mc Roque on 98-98-3480Juwmmgawdo (Bld) [Mass/Vol]10.3 g/dLLow11.8-15.4 [facility]S HospitalComment on above:Performed By: #### CBC, BMP ####[address] [address] USAKetones [Presence] in Urine by Test stripOrdered By: PROVIDER TEMP on 05-86-0865Myeoeat Ql (U)TraceHighNegativeAkron Children'S HospitalComment on above:Order Comment: Name Collection Type:: Clean-Voided MidstreamPerformed By: #### ADDONUAPLUS ####[address] [address] USALeukocyte esterase [Presence] in Urine by Test stripOrdered By: PROVIDER TEMP on 55-39-4007Nivuhhrjj esterase Test strip Ql (U)NegativeNormal NegativeAkron Children'S HospitalComment on above:Order Comment: Name Collection Type:: Clean-Voided MidstreamPerformed By: #### ADDONUAPLUS ####[address] [address] [place] Leukocytes [#/area] in Urine sediment by Microscopy high power fieldOrdered By: PROVIDER TEMP on 28-43-8208UFL LM.HPF (Urine sed) [#/Area]5-9 [HPF]High0-4 [facility]'S HospitalLeukocytes [#/volume] corrected for nucleated erythrocytes in Blood by Automated counOrdered By: Mc Roque on 57-69-2958NYW corrected for nucl RBC Auto (Bld) [#/Vol]4.1 10*3/uL3.8-11.6 [facility]S HospitalLeukocytes [#/volume] in Blood by Automated countOrdered By: Mc Roque on 90-87-0686BZI (Bld) [#/Vol]4.1 10*3/uL Normal3.8-11.6FThe Surgical Hospital at SouthwoodsComment on above:Performed By: #### CBC, BMP ####[address] [address] USALymphocytes [#/volume] in Blood by Automated countOrdered By: Mc Roque on 09-46-7959Iudpecthoag (Bld) [#/Vol]1.0 10*3/uLNormal1.00-4.8 [facility]S HospitalComment on above:Performed By: #### CBC, BMP ####[address] [address] [place] Lymphocytes/100 leukocytes in Blood by Automated countOrdered By: Mc Roque on 10-05-8485Gwgfkeicyyd/100 WBC (Bld)24.4 %Normal.[facility]'S HospitalComment on above:Performed By: #### CBC, BMP ####[address] [address] [facility]ITALMCH [Entitic mass] by Automated countOrdered By: Mc Roque on 17-48-0143WJF (RBC) [Entitic mass]29.8 qaSqzkds55.7-34.3FThe Surgical Hospital at SouthwoodsComment on above: Performed By: #### CBC, BMP ####[address] [address] [facility] HOSPITALMCHC Auto (RBC) [Mass/Vol]Ordered By: Mc Roque on 51-83-9928QNOB (RBC) [Mass/Vol]32.9 g/dL32.0-35.0Sum[facility] Health [facility] CampusV [Entitic volume] by Automated countOrdered By: Mc Roque on 48-83-7033ULH (RBC) [Entitic vol]90.6 rZIwuefr24-195AtndorbqtAkron Children'S HospitalComment on above:Performed By: #### CBC, BMP ####[address] [address] [place] Monocyte distribution width [Entitic volume] in Blood by AutomatedOrdered By: Mc Roque on 10-94-1980Gxeuzuyx distribution width Auto (Bld) [Entitic vol]19.15 %0.00-20.00[facility]'S HospitalNeutrophils [#/volume] in Blood by Automated countOrdered By: Mc Roque on 82-67-5465Koiqgkvurft (Bld) [#/Vol]2.5 10*3/uLNormal1.8-7.7FThe Surgical Hospital at SouthwoodsComment on above:Performed By: #### CBC, BMP ####[facility] [address] [place] [address] USANitrite Test strip Ql (U)Ordered By: JESSE TEMMargaux on 08-95-0237Ptonlhe Ql (U)NegativeNegativeAkron Children'S HospitalNo Panel InformationOrdered By: Mc Roque on 90-44-3414Oowef Gas Critical ValueSee commentAkron Children'S HospitalComment on above:Critical Value called on: 04/05/2024 at 22:36Blood Gas Sample SiteVenCommunity Regional Medical CenterFiO221 %[facility] Children'S HospitalVenous Blood Base Excess- 3.2 mmol/LLow-3.0-3.0[facility]'S HospitalVenous Blood Oxygen Vlwbmqewqc40.7 %High73.0-76.0[facility]'S HospitalVenous Blood Partial Pressure CO235.6 mm[Hg]Low38.0-50.0[facility] Venous Blood pH7.397.32-7.43[facility]S HospitalEstimated GFR (CKD-EPI)> 60.0 mL/MinAkron Children'S HospitalPharmacy Creatinine Clearance (Chem70.95[facility]'S HospitalNucleated erythrocytes [Presence] in Blood by Automated countOrdered By: Mc Roque on 27-29-2380Wusymhzwz RBC Auto Ql (Bld)0.1 /100{WBC}0-0.5FThe Surgical Hospital at SouthwoodsPlatelet mean volume [Entitic volume] in Blood by Automated count Ordered By: Mc Roque on 06-25-4437Pieyiwhg mean volume (Bld) [Entitic vol]9.4 fLNormal6.3-10.7FThe Surgical Hospital at SouthwoodsComment on above: Performed By: #### CBC, BMP ####[facility] [address] [place] [address] USAPlatelets [#/volume] in Blood by Automated count Ordered By: Mc Roque on 89-53-5745Moacxwzpx (Bld) [#/Vol]239 10*3/uL Yhhpwg597-162IifwoxhibAkron Children'S HospitalComment on above:Performed By: #### CBC, BMP ####[address] [address] USAPotassium [Moles/volume] in Serum or PlasmaOrdered By: Mc Roque on 16-50-6491Dymxelxxg [Moles/Vol]5.1 mmol/LNormal3.5-5.1FThe Surgical Hospital at SouthwoodsComment on above:Performed By: #### CBC, BMP ####[address] [address] USAProtein Test strip (U) [Mass/Vol]Ordered By: PROVIDER TEMP on 82-28-9288Vegbgut (U) [Mass/Vol]Trace mg/dLHighNegativeBucyrus Community Hospitalerum or plasma anion gap determinationOrdered By: Mc Roque on 51-40-5767Hxxdu gap [Moles/Vol]15.7 mmol/LHigh6.0-15.0[facility]S HospitalComment on above:Performed By: #### CBC, BMP ####[address] [address] USASodium [Moles/volume] in Serum or Plasma Ordered By: Mc Roque on 58-54-8133Wafezu [Moles/Vol]128 mmol/LLow 136-145[facility]'S HospitalComment on above:Performed By: #### CBC, BMP ####[address] [address] [place] Specific gravity Test strip (U) [Rel density]Ordered By: PROVIDER TEMP on 77-99-9801Bbqjyxfq gravity (U) [Rel density]1.0251.001-1.030[facility]'S HospitalUrea nitrogen [Mass/volume] in Serum or PlasmaOrdered By: Mc Roque on 66-81-6916Xwdc nitrogen [Mass/Vol]31 mg/dLHigh7-25[facility]S HospitalComment on above:Performed By: #### CBC, BMP ####[facility] [address] [place] [address] USAUrine appearanceOrdered By: PROVIDER TEMP on 11-08-8215Lifslemnwt (U)ClearNormalClear [facility]S HospitalComment on above:Order Comment: Name Collection Type:: Clean-Voided MidstreamPerformed By: #### ADDONUAPLUS ####[facility] [address] [place] [address] USAUrobilinogen Test strip (U) [Mass/Vol]Ordered By: PROVIDER TEMP on 26-05-1084Jexbkryxgnbc (U) [Mass/Vol]Normal mg/dLNoOhio Valley HospitalVenous Blood Gas Ordered By: Mc Roque on 66-05-3898LL8 [Moles/Vol]22.3 mmol/LLow 24.0-29.0[facility]'S HospitalComment on above:Performed By: #### VBG ####Point of Care testing,HCO3 (Bld) [Moles/Vol]21.2 mmol/LLow23.0-29.0 [facility]S HospitalComment on above:Performed By: #### VBG ####Point of Care testing,Venous Blood Gason 68-88-8544Dfuwugiybiy Critical NormalThe Unc Health Wayne Physician GroupComment on above:Result Comment: Critical Value called on: 04/05/2024 at 22:36PERFORMED BY:[address] [place], [place] [phone] MEDICAL DIRECTORMEERA GRIFFITHS M.D.Performed By: #### VBG ####Point of Care testing,VBG Base Excess-3.2 mmol/LLow-3.0-3.0The [facility] Physician GroupComment on above: Performed By: #### VBG ####Point of Care testing,VBG Draw SiteVenousNormalThe [facility] Wayne Physician GroupComment on above:Performed By: #### VBG ####Point of Care testing,VBG Frac Inspired O221 %NormalThe Unc Health Wayne Physician GroupComment on above:Performed By: #### VBG ####Point of Care testing,VBG Oxygen Saturation 85.7 %Off scale high73.0-76.0The [facility] Wayne Physician GroupComment on above: Performed By: #### VBG ####Point of Care testing,VBG LDM014.6 mm[Hg]Low38.0-50.0 The [facility] Wayne Physician GroupComment on above:Performed By: #### VBG ####Point of Care testing,VBG PH Venous PH7.82Uvjcin9.32-7.43The [facility] Comment on above:Performed By: #### VBG ####Point of Care testing,pH of Urine by Test stripOrdered By: PROVIDER TEMP on 77-76-3977qL (U)5.5 [pH]Normal5.0-9.0 [facility]S HospitalComment on above:Order Comment: Name Collection Type:: Clean-Voided MidstreamPerformed By: #### ADDONUAPLUS ####[place] [address] USAAutomated basophil % Ordered By: Billy Nickerson on 79-80-7379Rczqrcjto/100 WBC (Bld)0.9 %Normal. [facility]S HospitalComment on above:Performed By: #### BMP, CBC ####[address] [address] [place] Automated basophil countOrdered By: Billy Nickerson on 70-38-0628Qbxfwinrj (Bld) [#/Vol]0.1 10*3/uLNormal0.0-0.2FThe Surgical Hospital at SouthwoodsComment on above:Result Comment: PERFORMED BY:[address] [place], [place] [phone] MEDICAL DIRECTORMEERA GRIFFITHS M.D. Performed By: #### BMP, CBC ####[address] [address] USAAutomated blood monocyte countOrdered By: Billy Nickerson on 29-48-4035Vallwdaxa (Bld) [#/Vol]0.5 10*3/uLNormal0.0-0.8[facility] HospitalComment on above:Performed By: #### BMP, CBC ####[address] [address] [place] Automated eosinophil %Ordered By: Billylisa Nickerson on 03-24-2024 Eosinophils/100 WBC (Bld)7.0 %Normal.[facility]'S HospitalComment on above:Performed By: #### BMP, CBC ####[address] [address] USAAutomated eosinophil countOrdered By: Billy Nickerson on 78-31-5289Xdpexnntvxj (Bld) [#/Vol]0.5 10*3/uLHigh0.0-0.45[facility] HospitalComment on above:Performed By: #### BMP, CBC ####[address] [address] [place] Automated monocyte %Ordered By: Billylisa Nickerson on 57-90-4223Ormlwaama/100 WBC (Bld)7.2 %Normal.[facility]'S HospitalComment on above:Performed By: #### BMP, CBC ####[address] [address] USAAutomated neutrophil %Ordered By: Billylisa Nickerson on 03-24-2024 Neutrophils/100 WBC (Bld)56.7 %Normal.[facility]'S HospitalComment on above:Performed By: #### BMP, CBC ####[address] [address] USABasic Metabolic Panelon 56-33-0267Bbpmuzhmdn Clr Calc Pvvpgvlg[address] [place] [address] Physician GroupComment on above:Result Comment: PERFORMED BY:[address] [place], [place] [phone] MEDICAL DIRECTORMEERA GRIFFITHS M.D.Performed By: #### BMP, CBC ####[address] [address] USAGFR/1.73 sq M.predicted MDRD (S/P/Bld) [Vol rate/Area]39.628 mL/min/{1.73_m2}NormalThe [facility] Wayne Physician GroupComment on above:Performed By: #### BMP, CBC ####[address] [address] USACalcium [Mass/volume] in Serum or PlasmaOrdered By: Billy Nickerson on 40-24-0894Drfzksy [Mass/Vol]8.8 mg/dLNormal8.6-10.3FThe Surgical Hospital at SouthwoodsComment on above:Performed By: #### BMP, CBC ####[place] [address] [facility] Capillary blood glucose measurement by glucometer (mass/volume)Ordered By: Billy Nickerson on 17-04-7729Glzzpjz [Mass/Vol]191 mg/dLNoOhio Valley HospitalComment on above:Random Glucose Reference Range is dependent on time and content of last meal. Glucose of more than 200 mg/dL in a nonstressed, ambulatory subject supports the diagnosis of Diabetes Mellitus. Result Comment: Random Glucose Reference Range is dependent on time and content of last meal. Glucose of more than 200 mg/dL in a nonstressed, ambulatory subject supports the diagnosis of Diabetes Mellitus.PERFORMED BY:[address] [place], [place] [phone] MEDICAL DIRECTORMEERA GRIFFITHS M.D.Performed By: #### GLULS ####Point of Care testing,Carbon dioxide, total [Moles/volume] in Serum or PlasmaOrdered By: Billy Nickerson on 58-07-2438BN4 [Moles/Vol]29.9 mmol/UJplaaw06.0-31.0 [facility] HospitalComment on above:Performed By: #### BMP, CBC ####[address] [address] [facility] Chloride [Moles/volume] in Serum or PlasmaOrdered By: Billy Nickerson on 19-49-8809Iwiqplqa [Moles/Vol]99 mmol/SRawinm99-850SudcuxzltAkron Children'S HospitalComment on above:Performed By: #### BMP, CBC ####[place] [address] USAComplete Blood Count Auto Diff on 48-79-8002Fpjo Corpuscular HGB Conc32.7 g/hYZrmyvf56.0-35.0The [facility] Physician GroupComment on above:Performed By: #### BMP, CBC ####[place] [address] USANRBC%0.1 /100{WBC} Normal0-0.5The [facility] Physician [facility] Health MadisonComment on above:Performed By: #### FABIO, CBC ####[place] [address] [place] Creatinine [Mass/volume] in Serum or PlasmaOrdered By: Billy Nickerson on 86-15-0198Aondxozutb [Mass/Vol]1.54 mg/dLHigh0.60-1.20[facility] HospitalComment on above:Performed By: #### FABIO, CBC ####[place] [address] USAErythrocyte distribution width [Ratio] by Automated countOrdered By: Billy Nickerson on 03-24-2024 Erythrocyte distribution width (RBC) [Ratio]14.9 %Vielsp31.9-15.3FThe Surgical Hospital at SouthwoodsComment on above:Performed By: #### FABIO, CBC ####[place] [address] [place] Erythrocytes [#/volume] in Blood by Automated countOrdered By: Billy Nickerson on 36-40-2782JTE (Bld) [#/Vol]3.49 10*6/uLLow3.60-5.00[facility]S HospitalComment on above:Performed By: #### BMP, CBC ####[place] [address] USAGlucose Poct Glucometerson 62-41-8632Dcakesj [Mass/Vol]245 mg/dLNaval Hospital Pensacola Physician GroupComment on above:Result Comment: Random Glucose Reference Range is dependent on time and content of last meal. Glucose of more than 200 mg/dL in a nonstressed, ambulatory subject supports the diagnosis of Diabetes Chris litus.PERFORMED BY:[place] [address] [address] ANDERSharleenKanDAVID, [place] [phone] MEDICAL DIRECTORMEERA GRIFFITHS M.D.Performed By: #### GLULS ####Point of Care testing,Glucose [Mass/Vol]311 mg/dLNaval Hospital Pensacola Physician GroupComment on above:Result Comment: Random Glucose Reference Range is dependent on time and content of last meal. Glucose of more than 200 mg/dL in a nonstressed, ambulatory subject supports the diagnosis of Diabetes Chris litus.PERFORMED BY:[place] [address] [place], [place] [phone] MEDICAL DIRECTORMEERA GRIFFITHS M.D.Performed By: #### GLULS ####Point of Care testing,Glucose [Mass/volume] in Serum or PlasmaOrdered By: Billy Nickerson on 03-91-5681Nunnzxx [Mass/Vol]228 mg/hDEavi29-872 [facility] HospitalComment on above:ADA recommended reference rangeRandom Glucose Reference Range is dependent on time and content of last meal. Glucose of more than 200 mg/dL in a nonstressed, ambulatory subject supports the diagnosisof Diabetes Mellitus.Result Comment: Random Glucose Reference Range is dependent on time and content of last meal. Glucose of more than 200 mg/dL in a nonstressed, ambulatory subject supports the diagnosis of Diabetes Mellitus. ADA recommended reference rangePerformed By: #### BMP, CBC ####[facility] [place] [address] [facility] Hematocrit [Volume Fraction] of Blood by Automated countOrdered By: Billy Nickerson on 28-13-8913Nmuumvowsi (Bld) [Volume fraction]31.4 %Low34.0-46.4 [facility]S HospitalComment on above:Performed By: #### BMP, CBC ####[place] [address] [place] [address] [place] Hemoglobin [Mass/volume] in BloodOrdered By: Billy Nickerson on 03-24-2024 Hemoglobin (Bld) [Mass/Vol]10.3 g/dLLow11.8-15.4FThe Surgical Hospital at SouthwoodsComment on above:Performed By: #### BMP, CBC ####[address] [address] USALeukocytes [#/volume] corrected for nucleated erythrocytes in Blood by Automated counOrdered By: Billykian Nickerson on 38-76-2801BTH corrected for nucl RBC Auto (Bld) [#/Vol] 6.7 10*3/uL3.8-11.6FThe Surgical Hospital at SouthwoodsLeukocytes [#/volume] in Blood by Automated countOrdered By: Billy Nickerson on 82-71-6519SQG (Bld) [#/Vol]6.7 10*3/uLNormal3.8-11.6FThe Surgical Hospital at SouthwoodsComment on above:Performed By: #### BMP, CBC ####[address] [address] USALymphocytes [#/volume] in Blood by Automated count Ordered By: Billy Nickerson on 73-67-5863Oihcgyrfdck (Bld) [#/Vol]1.9 10*3/uLNormal1.00-4.8[facility] HospitalComment on above:Performed By: #### BMP, CBC ####[address] [address] USALymphocytes/100 leukocytes in Blood by Automated countOrdered By: Billy Nickerson on 92-44-1046Kynnzppajkb/100 WBC (Bld)28.2 %Normal.[facility]S HospitalComment on above:Performed By: #### BMP, CBC ####[address] [address] USAMCH [Entitic mass] by Automated countOrdered By: Billy Nickerson on 03-24-2024 MCH (RBC) [Entitic mass]29.4 ayLtoucf14.7-34.3FThe Surgical Hospital at Southwoods Comment on above:Performed By: #### BMP, CBC ####[facility] [address] [place] [id number] [facility] TULSAHC Auto (RBC) [Mass/Vol]Ordered By: Billy Nickerson on 32-27-0159QUUZ (RBC) [Mass/Vol]32.7 g/dL32.0-35.0 [facility]S HospitalMCV [Entitic volume] by Automated countOrdered By: Billy Nickerson on 47-26-2665PTY (RBC) [Entitic vol]89.9 kNThhjoz42-693 [facility] HospitalComment on above:Performed By: #### BMP, CBC ####[facility] [address] [place] [address] [place] Neutrophils [#/volume] in Blood by Automated countOrdered By: Billy Nickerson on 59-65-2182Sbukhseeqrn (Bld) [#/Vol]3.8 10*3/uLNormal1.8-7.7 [facility]S HospitalComment on above:Performed By: #### BMP, CBC ####[facility] [address] [place], [place] [address] USANo Panel InformationOrdered By: Billy Nickerson on 17-06-7728Idxlblfwd GFR (CKD-EPI)39.628 mL/MinAkron Children'S HospitalPharmacy Creatinine Clearance (Chem49.93[facility]'S HospitalNucleated erythrocytes [Presence] in Blood by Automated countOrdered By: Billy Nickerson on 48-36-7027Veavfhuhf RBC Auto Ql (Bld)0.1 /100{WBC}0-0.5FThe Surgical Hospital at SouthwoodsPlatelet mean volume [Entitic volume] in Blood by Automated count Ordered By: Billy Nickerson on 65-51-6367Zdpnkyjc mean volume (Bld) [Entitic vol]9.3 fLNormal6.3-10.7FThe Surgical Hospital at SouthwoodsComment on above: Performed By: #### BMP, CBC ####[address] [address] USAPlatelets [#/volume] in Blood by Automated count Ordered By: Billy Nickerson on 08-93-9426Njqstiwmr (Bld) [#/Vol]283 10*3/uL Twnibz059-661ApytpfrgrAkron Children'S HospitalComment on above:Performed By: #### BMP, CBC ####[address] [address] USAPotassium [Moles/volume] in Serum or PlasmaOrdered By: Billy Nickerson on 03-02-7214Khvkeuont [Moles/Vol]3.8 mmol/LNormal3.5-5.1FThe Surgical Hospital at SouthwoodsComment on above:Performed By: #### BMP, CBC ####[address] [address] USASerum or plasma anion gap determinationOrdered By: Billy Nickerson on 03-24-2024 Anion gap [Moles/Vol]12.9 mmol/LNormal6.0-15.0[facility] Comment on above:Performed By: #### FABIO, CBC ####[address] [address] USASodium [Moles/volume] in Serum or PlasmaOrdered By: Billy Nickerson on 33-84-8700Bhqowo [Moles/Vol]138 mmol/L Kjahne902-599YtkkfqchhAkron Children'S HospitalComment on above:Performed By: #### BMP, CBC ####[address] [address] USAUrea nitrogen [Mass/volume] in Serum or PlasmaOrdered By: Billy Nickerson on 88-33-7570Ewhg nitrogen [Mass/Vol]30 mg/dLHigh7-25[facility] HospitalComment on above:Performed By: #### BMP, CBC ####[address] [address] USABasic Metabolic Panelon 27-52-9988Uijlq gap [Moles/Vol]14.0 mmol/LNormal6.0-15.0The [facility] Physician GroupComment on above:Performed By: #### BMP, CBC ####[place] [address] USACalcium [Mass/Vol]8.6 mg/dLNormal8.6-10.3The [facility] Physician GroupComment on above: Performed By: #### BMP, CBC ####[place] [address] USAChloride [Moles/Vol]99 mmol/CWuyqgp26-128Bve [facility] Physician GroupComment on above:Performed By: #### BMP, CBC ####[place] [address] USACO2 [Moles/Vol]31.5 mmol/LHigh21.0-31.0The [facility] Physician GroupComment on above:Performed By: #### BMP, CBC ####[place] [address] USACreatinine [Mass/Vol]1.42 mg/dLHigh0.60-1.20The [facility] Physician GroupComment on above:Performed By: #### BMP, CBC ####[place] [address] [place] Creatinine Clr Calc Zrkgxaax76.54NormalThCaribou Memorial Hospital Physician GroupComment on above:Result Comment: PERFORMED BY:[address] [place], [place] [phone] MEDICAL NIKI GRIFFITHS M.D. Performed By: #### BMP, CBC ####[address] [address] USAGFR/1.73 sq M.predicted MDRD (S/P/Bld) [Vol rate/Area]43.680 mL/min/{1.73_m2}NormalThe [facility] Physician GroupComment on above:Performed By: #### BMP, CBC ####[address] [address] USAGlucose [Mass/Vol]184 mg/wALogg60-848Cvq [facility] Physician GroupComment on above:Result Comment: Random Glucose Reference Range is dependent on time and content of last meal. Glucose of more than 200 mg/dL in a nonstressed, ambulatory subject supports the diagnosis of Diabetes Mellitus. ADA recommended reference rangePerformed By: #### BMP, CBC ####[address] [address] USAPotassium [Moles/Vol] 4.5 mmol/LNormal3.5-5.1The [facility] Physician GroupComment on above:Performed By: #### BMP, CBC ####[address] [address] USASodium [Moles/Vol]140 mmol/VAbjllx021-542Ccg [facility] Physician GroupComment on above:Performed By: #### BMP, CBC ####[address] [address] USAUrea nitrogen [Mass/Vol]26 mg/dLHigh 7-25The [facility] Physician GroupComment on above:Performed By: #### BMP, CBC ####[place] [address] [place] Complete Blood Count Auto Diffon 46-61-5454Ekvstazoa (Bld) [#/Vol]0.0 10*3/uL Normal0.0-0.2The [facility] Physician GroupComment on above:Result Comment: PERFORMED BY:[address] [place], [place] [phone] MEDICAL DIRECTORMEERA GRIFFITHS M.D.Performed By: #### BMP, CBC ####[place] [address] USABasophils/100 WBC (Bld)0.8 %Normal.The [facility] Physician GroupComment on above:Performed By: #### BMP, CBC ####[address] [address] USAEosinophils (Bld) [#/Vol]0.4 10*3/uLNormal0.0-0.45 The [facility] Physician GroupComment on above:Performed By: #### BMP, CBC ####[address] [address] [place] Eosinophils/100 WBC (Bld)6.6 %Normal.The [facility] Physician GroupComment on above:Performed By: #### BMP, CBC ####[address] [address] USAErythrocyte distribution width (RBC) [Ratio]14.7 % Ybejzx00.9-15.3The [facility] Physician GroupComment on above:Performed By: #### BMP, CBC ####[place] [address] USAHematocrit (Bld) [Volume fraction]31.6 %Low34.0-46.4The [facility] Physician GroupComment on above:Performed By: #### BMP, CBC ####[place] [address] USAHemoglobin (Bld) [Mass/Vol]10.3 g/dL Low11.8-15.4The [facility] Physician GroupComment on above:Performed By: #### BMP, CBC ####[address] [address] USALymphocytes (Bld) [#/Vol]1.8 10*3/uLNormal1.00-4.8The [facility] Physician GroupComment on above:Performed By: #### BMP, CBC ####[address] [address] USALymphocytes/100 WBC (Bld)28.3 %Normal .The [facility] Physician GroupComment on above:Performed By: #### BMP, CBC ####[address] [address] USAMCH (RBC) [Entitic mass]29.2 ebKqojep65.7-34.3The [facility] Physician GroupComment on above:Performed By: #### BMP, CBC ####[address] [address] USAMCV (RBC) [Entitic vol]89.5 aACsmlzi32-060Sft [facility] Physician GroupComment on above:Performed By: #### BMP, CBC ####[place] [address] USAMean Corpuscular HGB Conc32.6 g/gZOjonxc23.0-35.0The [facility] Physician GroupComment on above:Performed By: #### BMP, CBC ####[place] [address] USAMonocytes (Bld) [#/Vol]0.5 10*3/uLNormal 0.0-0.8The [facility] Physician GroupComment on above:Performed By: #### BMP, CBC ####[place] [address] [place] Monocytes/100 WBC (Bld)7.8 %Normal.The [facility] Physician GroupComment on above:Performed By: #### BMP, CBC ####[place] [address] USANeutrophils (Bld) [#/Vol]3.5 10*3/uLNormal1.8-7.7The [facility] Physician GroupComment on above:Performed By: #### BMP, CBC ####[place] [address] [place] Neutrophils/100 WBC (Bld)56.5 %Normal.The [facility] Physician GroupComment on above:Performed By: #### BMP, CBC ####[place] [address] USANRBC%0.1 /100{WBC}Normal0-0.5The [facility] Physician GroupComment on above:Performed By: #### BMP, CBC ####[place] [address] USAPlatelet mean volume (Bld) [Entitic vol]9.4 fLNormal6.3-10.7The [facility] Physician GroupComment on above: Performed By: #### BMP, CBC ####[place] [address] USAPlatelets (Bld) [#/Vol]270 10*3/gUGzsxvu086-515Wyq [facility] Physician GroupComment on above:Performed By: #### BMP, CBC ####[address] [address] USARBC (Bld) [#/Vol]3.52 10*6/uLLow3.60-5.00The [facility] Physician GroupComment on above:Performed By: #### BMP, CBC ####[address] [address] USAWBC (Bld) [#/Vol]6.2 10*3/uLNormal3.8-11.6The [facility] Physician GroupComment on above:Performed By: #### BMP, CBC ####[address] [address] USAGlucose Poct Glucometerson 93-09-0140Prrmqji [Mass/Vol]346 mg/dLPhillips Eye InstituteComment on above:Result Comment: Random Glucose Reference Range is dependent on time and content of last meal. Glucose of more than 200 mg/dL in a nonstressed, ambulatory subject supports the diagnosis of Diabetes Chris litus.PERFORMED BY:[address] [place], [place] [phone] MEDICAL DIRECTORMEERA GRIFFITHS M.D.Performed By: #### GLULS ####Point of Care testing,Glucose [Mass/Vol]393 mg/dLPhillips Eye InstituteComment on above:Result Comment: Random Glucose Reference Range is dependent on time and content of last meal. Glucose of more than 200 mg/dL in a nonstressed, ambulatory subject supports the diagnosis of Diabetes Chris litus.PERFORMED BY:[address] ARGUELLESKanDAVIDHOFFMAN ESTATES, [place] [phone] MEDICAL DIRECTORMEERA GRIFFITHS M.D.Performed By: #### GLULS ####Point of Care testing,Iuroyuw5Uay7: Cleaned MeterNoKettering Health TroyComment on above:Result Comment: PERFORMED BY:[address] [address] [address] [place], [place] [phone] MEDICAL DIRECTORMEERA GRIFFITHS M.D.Performed By: #### GLULS ####Point of Care testing, Glucose [Mass/Vol]295 mg/dLNoECU Health North Hospital Physician GroupComment on above: Result Comment: Random Glucose Reference Range is dependent on time and content of last meal. Glucose of more than 200 mg/dL in a nonstressed, ambulatory subject supports the diagnosis of Diabetes Mellitus.Performed By: #### GLULS ####Point of Care testing,Glucose [Mass/Vol]221 mg/dLNaval Hospital Pensacola Physician GroupComment on above:Result Comment: Random Glucose Reference Range is dependent on time and content of last meal. Glucose of more than 200 mg/dL in a nonstressed, ambulatory subject supports the diagnosis of Diabetes Chris litus.PERFORMED BY:[address] [address] [address] ADDISONDAV[place], [place] [phone] MEDICAL DIRECTORMEERA GRIFFITHS M.D.Performed By: #### GLULS ####Point of Care testing,Glucose [Mass/Vol]249 mg/dLNaval Hospital Pensacola Physician GroupComment on above:Result Comment: Random Glucose Reference Range is dependent on time and content of last meal. Glucose of more than 200 mg/dL in a nonstressed, ambulatory subject supports the diagnosis of Diabetes Chris litus.PERFORMED BY:[address] [address] [address] ADDISON[place], [place] [phone] MEDICAL DIRECTORMEERA GRIFFITHS M.D.Performed By: #### GLULS ####Point of Care testing,INR in Platelet poor plasma by Coagulation assay Ordered By: Audra Wheat on 66-44-4659DYS Coag (PPP) [Relative time]1.3 {INR} [facility] HospitalComment on above:INR Therapeutic Range A) Pre- and Peroperative OAT started two weeks before surgery. NOT HIP SURGERY: 1.5 - 2.5 HIP SURGERY: 2 - 3B) Primary and secondary prevention of venous THROMBOSIS: 2 - 3C) Active venous thrombosis, pulmonary embolismand prevention of recurrent venous thrombosis: 2 - 3D) Prevention of arterial thromboembolismincluding patients with mechanical heart valves: 3 - 4.5Result Comment: INR Therapeutic Range A) Pre- and Peroperative OAT started two weeks before surgery. NOT HIP SURGERY: 1.5 - 2.5 HIP SURGERY: 2 - 3 B) Primary and secondary prevention of venous THROMBOSIS: 2 - 3 C) Active venous thrombosis, pulmonary embolism and prevention of recurrent venous thrombosis: 2 - 3 D) Prevention of arterial thromboembolism including patients with mechanical heart valves: 3 - 4.5PERFORMED BY:[facility] [place], [place] [phone] MEDICAL DIRECTORMEERA GRIFFITHS M.D. Performed By: #### PT ####[facility] [address] [place] [address] USANo Panel InformationOrdered By: Billy Nickerson on 17-63-7934Ulplbwy Glucose CommentGlu2: cleaned meterAkron Children'S HospitalProthrombin time (PT)Ordered By: Audra Wheat on 62-99-3884QD Coag (PPP) [Time]15.1 sHigh9.0-12.9Ak[facility] Children'S HospitalComment on above: A hematocrit value greater than 55% may lead to inaccurate results in coagulation testing. Patientshaving hematocrit values >55% require a special collection tube for coagulation studies. Please contact the laboratory at [phone] for redraw instructions.Result Comment: A hematocrit value greater than 55% may lead to inaccurate results in coagulation testing. Patients having hematocrit values >55% require a special collection tube for coagulation s tudies. Please contact the laboratory at [phone] for redraw instructions. Performed By: #### PT ####[facility] [address] [place] [address] USAXR chest 1V portableon [id number] chest 1V [facility] Physician GroupAlanine aminotransferase [Enzymatic activity/volume] in Serum or PlasmaOrdered By: Audra Wheat on 37-77-2475ZUW [Catalytic activity/Vol]7 U/LNormal7-52[facility] Children'S HospitalComment on above:Performed By: #### MG, PHOS, CMP, CBC ####[place] [id number] USAAlbumin [Mass/volume] in Serum or Plasma by Bromocresol green (BCG) dye binding methoOrdered By: Audra Wheat on 81-89-5443Bnvwsen BCG dye [Mass/Vol]3.0 g/dLLow3.5-5.7FThe Surgical Hospital at SouthwoodsAlkaline phosphatase [Enzymatic activity/volume] in Serum or Plasma Ordered By: Audra Wheat on 81-98-0303MXX [Catalytic activity/Vol]48 U/LNormal 34-104[facility] Children'S HospitalComment on above:Performed By: #### MG, PHOS, CMP, CBC ####[place] [address] USAAspartate aminotransferase [Enzymatic activity/volume] in Serum or PlasmaOrdered By: Audra Wheat on 05-96-1658NWM [Catalytic activity/Vol]13 U/L Odycqy34-11EyrmfcjdzAkron Children'S HospitalComment on above:Performed By: #### MG, PHOS, CMP, CBC ####[place] [address] USABilirubin.total [Mass/volume] in Serum or PlasmaOrdered By: Audra Wheat on 93-83-0579Ugoauhexg [Mass/Vol]0.4 mg/dLNormal0.3-1.0[facility]'S HospitalComment on above:Performed By: #### MG, PHOS, CMP, CBC ####[place] [id number] [facility] Complete Blood Count Auto Diffon 23-12-0775Zrngmxetr (Bld) [#/Vol]0.0 10*3/uL Normal0.0-0.2The [facility] Physician GroupComment on above:Result Comment: PERFORMED BY:[address] [place], [place] [phone] MEDICAL DIRECTORMEERA GRIFFITHS M.D.Performed By: #### MG, PHOS, CMP, CBC ####[place] [address] USABasophils/100 WBC (Bld)0.5 %Normal.The [facility] Comment on above:Performed By: #### MG, PHOS, CMP, CBC ####[place] [address] USAEosinophils (Bld) [#/Vol]0.3 10*3/uLNormal0.0-0.45The [facility] Physician GroupComment on above:Performed By: #### MG, PHOS, CMP, CBC ####[place] [address] USAEosinophils/100 WBC (Bld)5.8 %Normal.The [facility] Physician GroupComment on above:Performed By: #### MG, PHOS, CMP, CBC ####[address] Erythrocyte distribution width (RBC) [Ratio]14.6 %Thywol51.9-15.3The [facility] Physician GroupComment on above:Performed By: #### MG, PHOS, CMP, CBC ####[place] [address] USA Hematocrit (Bld) [Volume fraction]30.2 %Low34.0-46.4The [facility] Physician GroupComment on above:Performed By: #### MG, PHOS, CMP, CBC ####[place] [address] USAHemoglobin (Bld) [Mass/Vol]10.0 g/dLLow11.8-15.4The [facility] Physician GroupComment on above: Performed By: #### MG, PHOS, CMP, CBC ####[place] [address] USALymphocytes (Bld) [#/Vol]1.6 10*3/uLNormal 1.00-4.8The [facility] Physician GroupComment on above:Performed By: #### MG, PHOS, CMP, CBC ####[place] [address] USALymphocytes/100 WBC (Bld)27.0 %Normal.The [facility] Comment on above:Performed By: #### MG, PHOS, CMP, CBC ####[address] (RBC) [Entitic mass]29.9 otEonmje32.7-34.3The [facility] Physician GroupComment on above:Performed By: #### MG, PHOS, CMP, CBC ####[address] (RBC) [Entitic vol]90.4 zJJyxxuz11-766Rlb [facility] Physician GroupComment on above:Performed By: #### MG, PHOS, CMP, CBC ####[place] [address] USAMean Corpuscular HGB Conc33.0 g/xQDurhbb73.0-35.0The [facility] Physician GroupComment on above:Performed By: #### MG, PHOS, CMP, CBC ####[place] [address] USAMonocytes (Bld) [#/Vol]0.5 10*3/uL Normal0.0-0.8The [facility] Physician GroupComment on above:Performed By: #### MG, PHOS, CMP, CBC ####[place] [address] USAMonocytes/100 WBC (Bld)8.6 %Normal.The [facility] Comment on above:Performed By: #### MG, PHOS, CMP, CBC ####[place] [address] USANeutrophils (Bld) [#/Vol]3.4 10*3/uLNormal1.8-7.7The [facility] Physician GroupComment on above:Performed By: #### MG, PHOS, CMP, CBC ####[place] [address] USANeutrophils/100 WBC (Bld)58.1 %Normal.The [facility] Physician GroupComment on above:Performed By: #### MG, PHOS, CMP, CBC ####[place] [address] USANRBC% 0.0 /100{WBC}Normal0-0.5The [facility] Physician GroupComment on above:Performed By: #### MG, PHOS, CMP, CBC ####[place] [address] USAPlatelet mean volume (Bld) [Entitic vol]10.0 fL Normal6.3-10.7The [facility] Physician GroupComment on above:Performed By: #### MG, PHOS, CMP, CBC ####[place] [address] USAPlatelets (Bld) [#/Vol]243 10*3/bMDcvheq841-534Zwu [facility] Physician GroupComment on above:Performed By: #### MG, PHOS, CMP, CBC ####[place] [address] USARBC (Bld) [#/Vol]3.34 10*6/uLLow3.60-5.00The [facility] Physician GroupComment on above:Performed By: #### MG, PHOS, CMP, CBC ####[place] [address] USAWBC (Bld) [#/Vol]5.9 10*3/uLNormal 3.8-11.6The [facility] Physician GroupComment on above:Performed By: #### MG, PHOS, CMP, CBC ####[place] [address] USAComprehensive Metabolic Panelon 45-88-8790Kyblalp [Mass/Vol]3.0 g/dLLow 3.5-5.7The [facility] Physician GroupComment on above:Performed By: #### MG, PHOS, CMP, CBC ####[place] [address] USAAnion gap [Moles/Vol]11.8 mmol/LNormal6.0-15.0The [facility] Physician GroupComment on above:Performed By: #### MG, PHOS, CMP, CBC ####[place] [address] USACalcium [Mass/Vol]8.5 mg/dLLow8.6-10.3The [facility] Physician GroupComment on above:Performed By: #### MG, PHOS, CMP, CBC ####[place] [address] USAChloride [Moles/Vol]100 mmol/AEmgjtn47-058Coy [facility] Physician GroupComment on above:Performed By: #### MG, PHOS, CMP, CBC ####[place] [address] USACO2 [Moles/Vol]28.8 mmol/LVggstr89.0-31.0The [facility] Physician GroupComment on above:Performed By: #### MG, PHOS, CMP, CBC ####[place] [address] USACreatinine [Mass/Vol]1.29 mg/dLHigh 0.60-1.20The [facility] Physician GroupComment on above:Performed By: #### MG, PHOS, CMP, CBC ####[place] [address] USACreatinine Clr Calc Lrggpota21.79NormalThe [facility] Comment on above:Performed By: #### MG, PHOS, CMP, CBC ####[place] [address] USAGFR/1.73 sq M.predicted MDRD (S/P/Bld) [Vol rate/Area]49.014 mL/min/{1.73_m2}NormalAdventhealth Zephyrhills Physician GroupComment on above:Performed By: #### MG, PHOS, CMP, CBC ####[address] [address] USAGlucose [Mass/Vol]240 mg/yZLnkr75-083Bdd [facility] Physician GroupComment on above:Result Comment: Random Glucose Reference Range is dependent on time and content of last meal. Glucose of more than 200 mg/dL in a nonstressed, ambulatory subject supports the diagnosis of Diabetes Mellitus. ADA recommended reference rangePerformed By: #### MG, PHOS, CMP, CBC ####[address] [place] [address] USAPotassium [Moles/Vol]3.6 mmol/LNormal3.5-5.1The [facility] Physician GroupComment on above:Performed By: #### MG, PHOS, CMP, CBC ####[address] [address] USASodium [Moles/Vol]137 mmol/GRqwxnx906-126Vlp [facility] Physician GroupComment on above: Performed By: #### MG, PHOS, CMP, CBC ####[address] [address] USAUrea nitrogen [Mass/Vol]19 mg/dLNormal7-e [facility] Physician GroupComment on above:Performed By: #### MG, PHOS, CMP, CBC ####[address] [address] USAGlucose Poct Glucometerson 21-12-9275Ntrqall [Mass/Vol]323 mg/dLNoECU Health North Hospital Physician GroupComment on above:Result Comment: Random Glucose Reference Range is dependent on time and content of last meal. Glucose of more than 200 mg/dL in a nonstressed, ambulatory subject supports the diagnosis of Diabetes Chris litus.PERFORMED BY:[address] MIGU[address] [place]DISONRIDGED[place], [place] [phone] MEDICAL DIRECTORMEERA GRIFFITHS M.D.Performed By: #### GLULS ####Point of Care testing,Glucose [Mass/Vol]339 mg/dLNoECU Health North Hospital Physician GroupComment on above:Result Comment: Random Glucose Reference Range is dependent on time and content of last meal. Glucose of more than 200 mg/dL in a nonstressed, ambulatory subject supports the diagnosis of Diabetes Chris litus.PERFORMED BY:[address] [address] [address] [place] [phone] MEDICAL DIRECTORMEERA GRIFFITHS M.D.Performed By: #### GLULS ####Point of Care testing,Glucose [Mass/Vol]252 mg/dLNaval Hospital Pensacola Physician GroupComment on above:Result Comment: Random Glucose Reference Range is dependent on time and content of last meal. Glucose of more than 200 mg/dL in a nonstressed, ambulatory subject supports the diagnosis of Diabetes Chris litus.PERFORMED BY:[address] [address] [address] M[address] [place]DIS[place], [place] [phone] MEDICAL DIRECTORMEERA GRIFFITHS M.D.Performed By: #### GLULS ####Point of Care testing,Canbxiv6Vdi5: Cleaned MeterNoECU Health North Hospital Physician GroupComment on above:Result Comment: PERFORMED BY:[address] [place], [place] [phone] MEDICAL DIRECTORMEERA GRIFFITHS M.D.Performed By: #### GLULS ####Point of Care testing, Glucose [Mass/Vol]264 mg/dLNaval Hospital Pensacola Physician GroupComment on above: Result Comment: Random Glucose Reference Range is dependent on time and content of last meal. Glucose of more than 200 mg/dL in a nonstressed, ambulatory subject supports the diagnosis of Diabetes Mellitus.Performed By: #### GLULS ####Point of Care testing,Glucose [Mass/Vol]260 mg/dLNaval Hospital Pensacola Physician GroupComment on above:Result Comment: Random Glucose Reference Range is dependent on time and content of last meal. Glucose of more than 200 mg/dL in a nonstressed, ambulatory subject supports the diagnosis of Diabetes Chris litus.PERFORMED BY:[address] [place], [place] [phone] MEDICAL NIKI GRIFFITHS M.D.Performed By: #### GLULS ####Point of Care testing,Magnesium [Mass/volume] in Serum or Plasma Ordered By: Audra Wheat on 22-84-4975Qylhfmbwy [Mass/Vol]1.6 mg/dLLow1.9-2.7 [facility]S HospitalComment on above:Result Comment: PERFORMED BY:[address] [place], [place] [phone] MEDICAL DIRECTORMEERA GRIFFITHS M.D.Performed By: #### MG, PHOS, CMP, CBC ####[address] [address] USAPhosphate [Mass/volume] in Serum or PlasmaOrdered By: Audra Wheat on 93-75-7516Tocsqftdl [Mass/Vol]3.7 mg/dLNormal2.5-4.5FThe Surgical Hospital at SouthwoodsComment on above:Performed By: #### MG, PHOS, CMP, CBC ####[address] [address] USAProtein [Mass/volume] in Serum or PlasmaOrdered By: Audra Wheat on 35-76-7227Qfvtggp [Mass/Vol]6.3 g/dLLow6.4-8.9[facility]S HospitalComment on above:Performed By: #### MG, PHOS, CMP, CBC ####[address] [address] USASerum globulin measurement by calculation (mass/volume)Ordered By: Audra Wheat on 33-41-7970Rxvddolz (S) [Mass/Vol]3.3 g/dLNormEast Ohio Regional HospitalComment on above:Performed By: #### MG, PHOS, CMP, CBC ####[address] [address] USASerum or plasma albumin/globulin mass ratioOrdered By: Audra Wheat on 50-46-3859Mfacafb/Globulin [Mass ratio]0.9 {ratio}NormalAkron Children'S HospitalComment on above:Performed By: #### MG, PHOS, CMP, CBC ####[address] [address] USAC reactive protein [Mass/volume] in Serum or PlasmaOrdered By: Audra Wheat on 54-53-4477BOR [Mass/Vol]6.5 mg/dLHigh0.0-0.5FThe Surgical Hospital at SouthwoodsC- Reactive Proteinon 90-46-8335E-Reactive Protein6.5 mg/dLHigh0.0-0.5The [facility] Physician GroupComment on above:Result Comment: PERFORMED BY:[address] [place], [place] [phone] MEDICAL DIRECTORMEERA GRIFFITHS M.D.Performed By: #### ESR, CMP, CRP, CBC, PHOS, MG ####[place] [address] [facility] Complete Blood Count Auto Diffon 86-09-1439Dgwqitnkq (Bld) [#/Vol]0.0 10*3/uL Normal0.0-0.2The [facility] Physician GroupComment on above:Performed By: #### ESR, CMP, CRP, CBC, PHOS, MG ####[place] [address] USABasophils/100 WBC (Bld)0.7 %Normal.The [facility] Physician GroupComment on above:Performed By: #### ESR, CMP, CRP, CBC, PHOS, MG ####[address] Eosinophils (Bld) [#/Vol]0.3 10*3/uLNormal0.0-0.45The [facility] Comment on above:Performed By: #### ESR, CMP, CRP, CBC, PHOS, MG ####[place] [address] USAEosinophils/100 WBC (Bld)6.0 %Normal.The [facility] Physician GroupComment on above:Performed By: #### ESR, CMP, CRP, CBC, PHOS, MG ####[place] [address] USAErythrocyte distribution width (RBC) [Ratio]14.5 % Xrrzlo39.9-15.3The [facility] Physician GroupComment on above:Performed By: #### ESR, CMP, CRP, CBC, PHOS, MG ####[place] [address] USAHematocrit (Bld) [Volume fraction]29.1 %Low34.0-46.4 The [facility] Physician GroupComment on above:Performed By: #### ESR, CMP, CRP, CBC, PHOS, MG ####[place] [address] USAHemoglobin (Bld) [Mass/Vol]9.6 g/dLLow11.8-15.4The [facility] Physician GroupComment on above:Performed By: #### ESR, CMP, CRP, CBC, PHOS, MG ####[place] [address] [place] Lymphocytes (Bld) [#/Vol]1.5 10*3/uLNormal1.00-4.8The [facility] Comment on above:Performed By: #### ESR, CMP, CRP, CBC, PHOS, MG ####[place] [address] USALymphocytes/100 WBC (Bld)28.5 %Normal.The [facility] Physician GroupComment on above:Performed By: #### ESR, CMP, CRP, CBC, PHOS, MG ####[place] [address] [facility] HOSPITALMCH (RBC) [Entitic mass]29.8 lzDyqcdj54.7-34.3The [facility] Physician GroupComment on above:Performed By: #### ESR, CMP, CRP, CBC, PHOS, MG ####[place] [address] [facility] HOSPITALMCV (RBC) [Entitic vol]90.8 kGGukkoz46-883Acy [facility] Comment on above:Performed By: #### ESR, CMP, CRP, CBC, PHOS, MG ####[place] [address] USAMean Corpuscular HGB Conc32.8 g/vOFtpgms69.0-35.0The [facility] Physician GroupComment on above: Performed By: #### ESR, CMP, CRP, CBC, PHOS, MG ####[place] [address] USAMonocytes (Bld) [#/Vol]0.5 10*3/uL Normal0.0-0.8The [facility] Physician GroupComment on above:Performed By: #### ESR, CMP, CRP, CBC, PHOS, MG ####[place] [address] USAMonocytes/100 WBC (Bld)10.3 %Normal.The [facility] Physician GroupComment on above:Performed By: #### ESR, CMP, CRP, CBC, PHOS, MG ####[address] Neutrophils (Bld) [#/Vol]2.9 10*3/uLNormal1.8-7.7The [facility] Comment on above:Performed By: #### ESR, CMP, CRP, CBC, PHOS, MG ####[place] [address] USANeutrophils/100 WBC (Bld)54.5 %Normal.The [facility] Physician GroupComment on above:Performed By: #### ESR, CMP, CRP, CBC, PHOS, MG ####[place] [address] USANRBC%0.1 /100{WBC}Normal0-0.5The [facility] Physician GroupComment on above:Performed By: #### ESR, CMP, CRP, CBC, PHOS, MG ####[address] Platelet mean volume (Bld) [Entitic vol]10.1 fLNormal6.3-10.7The [facility] Physician GroupComment on above:Performed By: #### ESR, CMP, CRP, CBC, PHOS, MG ####[address] Platelets (Bld) [#/Vol]212 10*3/lLPojqjr468-847Tuv [facility] Comment on above:Performed By: #### ESR, CMP, CRP, CBC, PHOS, MG ####[address] [address] USARBC (Bld) [#/Vol]3.21 10*6/uLLow3.60-5.00The [facility] Physician GroupComment on above:Performed By: #### ESR, CMP, CRP, CBC, PHOS, MG ####[place] [address] USAWBC (Bld) [#/Vol]5.3 10*3/uLNormal3.8-11.6The [facility] Physician GroupComment on above:Performed By: #### ESR, CMP, CRP, CBC, PHOS, MG ####[place] [address] USAComprehensive Metabolic Panelon 02-46-1680Mhkrpar [Mass/Vol]2.9 g/dLLow 3.5-5.7The [facility] Physician GroupComment on above:Performed By: #### ESR, CMP, CRP, CBC, PHOS, MG ####[place] [address] USAAlbumin/Globulin [Mass ratio]0.9 {ratio}NormalThe [facility] Physician GroupComment on above:Performed By: #### ESR, CMP, CRP, CBC, PHOS, MG ####[place] [address] USAALP [Catalytic activity/Vol]48 U/UFvgouj16-128Fqs [facility] Physician GroupComment on above:Performed By: #### ESR, CMP, CRP, CBC, PHOS, MG ####[place] [address] USAALT [Catalytic activity/Vol]7 U/LNormal7-52The [facility] Physician GroupComment on above:Performed By: #### ESR, CMP, CRP, CBC, PHOS, MG ####[place] [address] USAAnion gap [Moles/Vol]13.2 mmol/LNormal6.0-15.0The [facility] Physician GroupComment on above:Performed By: #### ESR, CMP, CRP, CBC, PHOS, MG ####[place] [address] USAAST [Catalytic activity/Vol]12 U/IJaj87-39Ukx [facility] Comment on above:Performed By: #### ESR, CMP, CRP, CBC, PHOS, MG ####[place] [address] USABilirubin [Mass/Vol] 0.3 mg/dLNormal0.3-1.0The [facility] Physician GroupComment on above:Performed By: #### ESR, CMP, CRP, CBC, PHOS, MG ####[place] [address] USACalcium [Mass/Vol]8.5 mg/dLLow8.6-10.3The [facility] Physician GroupComment on above:Performed By: #### ESR, CMP, CRP, CBC, PHOS, MG ####[place] [address] USAChloride [Moles/Vol]102 mmol/NHdzbub76-384Udt [facility] Comment on above:Performed By: #### ESR, CMP, CRP, CBC, PHOS, MG ####[place] [address] USACO2 [Moles/Vol]27.4 mmol/BKbnziv76.0-31.0The [facility] Physician GroupComment on above:Performed By: #### ESR, CMP, CRP, CBC, PHOS, MG ####[place] [address] USACreatinine [Mass/Vol]1.05 mg/dLNormal0.60-1.20The [facility] Physician GroupComment on above:Performed By: #### ESR, CMP, CRP, CBC, PHOS, MG ####[place] [address] USACreatinine Clr Calc Zfjydthm15.03NoECU Health North Hospital Physician GroupComment on above:Performed By: #### ESR, CMP, CRP, CBC, PHOS, MG ####[place] [address] USAGFR/1.73 sq M.predicted MDRD (S/P/Bld) [Vol rate/Area]mL/min/{1.73_m2}NormalThe [facility] Comment on above:Performed By: #### ESR, CMP, CRP, CBC, PHOS, MG ####[place] [address] USAGlobulin (S) [Mass/Vol]3.2 g/dLNaval Hospital Pensacola Physician [facility] Health MadisonComment on above:Performed By: #### ESR, CMP, CRP, CBC, PHOS, MG ####[place] [address] USAGlucose [Mass/Vol]185 mg/tRHgmd74-251Crn [facility] Physician GroupComment on above:Result Comment: Random Glucose Reference Range is dependent on time and content of last meal. Glucose of more than 200 mg/dL in a nonstressed, ambulatory subject supports the diagnosis of Diabetes Mellitus. ADA recommended reference rangePerformed By: #### ESR, CMP, CRP, CBC, PHOS, MG ####[place] [address] USAPotassium [Moles/Vol]3.6 mmol/LNormal3.5-5.1The [facility] Physician GroupComment on above:Performed By: #### ESR, CMP, CRP, CBC, PHOS, MG ####[place] [id number] USAProtein [Mass/Vol]6.1 g/dLLow6.4-8.9The [facility] Physician GroupComment on above: Performed By: #### ESR, CMP, CRP, CBC, PHOS, MG ####[place] [id number] USASodium [Moles/Vol]139 mmol/LNormal 136-145The [facility] Physician GroupComment on above:Performed By: #### ESR, CMP, CRP, CBC, PHOS, MG ####[address] [address] [facility]ITALUrea nitrogen [Mass/Vol]14 mg/dLNormal7-e [facility] Physician GroupComment on above:Performed By: #### ESR, CMP, CRP, CBC, PHOS, MG ####[place] [id number] [facility] Erythrocyte Sedimentation Rateon 60-63-9714VYB (Bld) [Velocity]116 mm/hHigh0-29 The [facility] Physician GroupComment on above:Result Comment: PERFORMED BY:[address] [address] [address] [place], [place] [phone] MEDICAL DIRECTORMEERA GRIFFITHS M.D.Performed By: #### ESR, CMP, CRP, CBC, PHOS, MG ####[place] [address] [facility] HOSPITALErythrocyte sedimentation rate by Photometric methodOrdered By: Audra Wheat on 70-49-9570JXF Photometric method (Bld) [Velocity]116 mm/hrHigh 0-29[facility] HospitalGlucose Poct Glucometerson 03-21-2024 Mdjwzoi2Fsi1: Cleaned [facility] Physician [facility] MadisonComment on above: Result Comment: PERFORMED BY:[address] [address] [place] ROTHHOFFMAN [place], [place] [phone] MEDICAL DIRECTORMEERA GRIFFITHS M.D. Performed By: #### GLULS ####Point of Care testing,Glucose [Mass/Vol]387 mg/dL NormalThe [facility] Physician GroupComment on above:Result Comment: Random Glucose Reference Range is dependent on time and content of last meal. Glucose of more than 200 mg/dL in a nonstressed, ambulatory subject supports the diagnosis of Diabetes Mellitus.Performed By: #### GLULS ####Point of Care testing,Kwvnmjw7JctdnrErv [facility] Physician GroupComment on above:Result Comment: Glu2: Will Repeat TestPERFORMED BY:[address] [address] [address] [place] [phone] MEDICAL DIRECTORMEERA GRIFFITHS M.D.Performed By: #### GLULS ####Point of Care testing, Glucose [Mass/Vol]401 mg/dLOff scale highAdventhealth Zephyrhills Physician GroupComment on above:Result Comment: Random Glucose Reference Range is dependent on time and content of last meal. Glucose of more than 200 mg/dL in a nonstressed, ambulatory subject supports the diagnosis of Diabetes Mellitus.Performed By: #### GLULS ####Point of Care testing,Glucose [Mass/Vol]245 mg/dLNoECU Health North Hospital Physician GroupComment on above:Result Comment: Random Glucose Reference Range is dependent on time and content of last meal. Glucose of more than 200 mg/dL in a nonstressed, ambulatory subject supports the diagnosis of Diabetes Mellitus.PERFORMED BY:[address] [address] [address] [place], [place] [phone] MEDICAL DIRECTORMEERA GRIFFITHS M.D. Performed By: #### GLULS ####Point of Care testing,Flzvqhj7Xrk1: Cleaned Meter [facility] Physician GroupComment on above:Result Comment: PERFORMED BY:[address] [address] [address]AMIN ARGUELLESKanDAVID, [place] [phone] MEDICAL NIKI GRIFFITHS M.D.Performed By: #### GLULS ####Point of Care testing,Glucose [Mass/Vol]191 mg/dLNaval Hospital Pensacola Physician GroupComment on above:Result Comment: Random Glucose Reference Range is dependent on time and content of last meal. Glucose of more than 200 mg/dL in a nonstressed, ambulatory subject supports the diagnosis of Diabetes Mellitus. Performed By: #### GLULS ####Point of Care testing,Dmlrfrm2Wzm6: Cleaned Meter [facility] Physician GroupComment on above:Result Comment: PERFORMED BY:[address] [address] [address]AM[address] ARGUELLESKanDAVIDHOFFMAN [place], [place] [phone] MEDICAL DIRECTORMEERA GRIFFITHS M.D.Performed By: #### GLULS ####Point of Care testing,Glucose [Mass/Vol]345 mg/dLNormalThe [facility] Physician GroupComment on above:Result Comment: Random Glucose Reference Range is dependent on time and content of last meal. Glucose of more than 200 mg/dL in a nonstressed, ambulatory subject supports the diagnosis of Diabetes Mellitus. Performed By: #### GLULS ####Point of Care testing,Magnesiumon 03-21-2024 Magnesium [Mass/Vol]1.5 mg/dLLow1.9-2.7The [facility] Physician GroupComment on above:Performed By: #### ESR, CMP, CRP, CBC, PHOS, MG ####[address] [place] [address] USAPhosphoruson 03-21-2024 Phosphate [Mass/Vol]3.5 mg/dLNormal2.5-4.5The [facility] Physician GroupComment on above:Performed By: #### ESR, CMP, CRP, CBC, PHOS, MG ####[address] [place] [address] USAVancomycin [Mass/volume] in Serum or Plasma --peakOrdered By: Audra Wheat on 89-23-3111Kxyotmvfmv peak [Mass/Vol]50.0 ug/tFIbxo50.0-40.0[facility]'S HospitalComment on above:Last dose: -Vancomycin,Peakon 47-79-2808Ckptwusliu,Peak50.0 ug/mLHigh 20.0-40.0The [facility] Physician GroupComment on above:Order Comment: Comment ?DRAW 1 HOUR AFTER INFUSION COMPLETES Date of last dose?: [id number] Time of last dose?: Comment: Last dose: -PERFORMED BY:[address] [place], [place] [phone] MEDICAL DIRECTORMEERA GRIFFITHS M.D.Performed By: #### VANCP ####[address] [place] [address] USAComplete Blood Count Auto Diffon 67-27-2407Tbsltrgyy (Bld) [#/Vol]0.0 10*3/uLNormal0.0-0.2The [facility] Physician GroupComment on above:Result Comment: PERFORMED BY:[address] [place], [place] [phone] MEDICAL DIRECTORMEERA GRIFFITHS M.D.Performed By: #### MG, CBC, PHOS, CMP ####[place] [address] USABasophils/100 WBC (Bld)0.6 %Normal.The [facility] Physician GroupComment on above:Performed By: #### MG, CBC, PHOS, CMP ####[place] [address] USAEosinophils (Bld) [#/Vol]0.3 10*3/uLNormal0.0-0.45 The [facility] Physician GroupComment on above:Performed By: #### MG, CBC, PHOS, CMP ####[place] [address] [place] Eosinophils/100 WBC (Bld)7.0 %Normal.The [facility] Physician GroupComment on above:Performed By: #### MG, CBC, PHOS, CMP ####[place] [address] USAErythrocyte distribution width (RBC) [Ratio]14.7 %Aiqpde05.9-15.3The [facility] Physician GroupComment on above: Performed By: #### MG, CBC, PHOS, CMP ####[place] [address] USAHematocrit (Bld) [Volume fraction]31.0 %Low 34.0-46.4The [facility] Physician GroupComment on above:Performed By: #### MG, CBC, PHOS, CMP ####[place] [address] USAHemoglobin (Bld) [Mass/Vol]10.3 g/dLLow11.8-15.4The [facility] Physician GroupComment on above:Performed By: #### MG, CBC, PHOS, CMP ####[place] [address] USALymphocytes (Bld) [#/Vol]1.5 10*3/uLNormal1.00-4.8The [facility] Physician GroupComment on above: Performed By: #### MG, CBC, PHOS, CMP ####[place] [address] USALymphocytes/100 WBC (Bld)29.8 %Normal.The [facility] Physician GroupComment on above:Performed By: #### MG, CBC, PHOS, CMP ####[address] (RBC) [Entitic mass]29.7 ryKwuugd41.7-34.3The [facility] Physician GroupComment on above:Performed By: #### MG, CBC, PHOS, CMP ####[address] (RBC) [Entitic vol]90.0 fLNormal 80-100The [facility] Physician GroupComment on above:Performed By: #### MG, CBC, PHOS, CMP ####[place] [address] USAMean Corpuscular HGB Conc33.0 g/jMIijqmd00.0-35.0The [facility] Physician GroupComment on above:Performed By: #### MG, CBC, PHOS, CMP ####[place] [address] USAMonocytes (Bld) [#/Vol]0.4 10*3/uLNormal0.0-0.8The [facility] Physician GroupComment on above: Performed By: #### MG, CBC, PHOS, CMP ####[place] [address] USAMonocytes/100 WBC (Bld)9.1 %Normal.The [facility] Physician GroupComment on above:Performed By: #### MG, CBC, PHOS, CMP ####[place] [address] [place] Neutrophils (Bld) [#/Vol]2.6 10*3/uLNormal1.8-7.7The [facility] Comment on above:Performed By: #### MG, CBC, PHOS, CMP ####[place] [address] USANeutrophils/100 WBC (Bld)53.5 %Normal.The [facility] Physician GroupComment on above:Performed By: #### MG, CBC, PHOS, CMP ####[place] [address] USANRBC%0.0 /100{WBC}Normal0-0.5The [facility] Physician GroupComment on above:Performed By: #### MG, CBC, PHOS, CMP ####[place] [address] USAPlatelet mean volume (Bld) [Entitic vol]10.0 fLNormal6.3-10.7The [facility] Physician GroupComment on above:Performed By: #### MG, CBC, PHOS, CMP ####[place] [address] USAPlatelets (Bld) [#/Vol]205 10*3/kFXyjlgo152-972Pno [facility] Physician GroupComment on above:Performed By: #### MG, CBC, PHOS, CMP ####[place] [address] USARBC (Bld) [#/Vol]3.45 10*6/uLLow3.60-5.00The [facility] Physician GroupComment on above:Performed By: #### MG, CBC, PHOS, CMP ####[place] [address] USAWBC (Bld) [#/Vol]4.9 10*3/uLNormal 3.8-11.6The [facility] Physician GroupComment on above:Performed By: #### MG, CBC, PHOS, CMP ####[place] [address] USAComprehensive Metabolic Panelon 22-79-6917Hsdgdlu [Mass/Vol]3.2 g/dLLow 3.5-5.7The [facility] Physician GroupComment on above:Performed By: #### MG, CBC, PHOS, CMP ####[address] [place] [address] USAAlbumin/Globulin [Mass ratio]1.0 {ratio}NormalThe [facility] Comment on above:Performed By: #### MG, CBC, PHOS, CMP ####[address] [address] USAALP [Catalytic activity/Vol]53 U/LNvhiys15-331Eli [facility] Physician GroupComment on above:Performed By: #### MG, CBC, PHOS, CMP ####[address] [address] USAALT [Catalytic activity/Vol]9 U/LNormal7-52The [facility] Physician GroupComment on above:Performed By: #### MG, CBC, PHOS, CMP ####[address] [address] USAAnion gap [Moles/Vol] 12.9 mmol/LNormal6.0-15.0The [facility] Physician GroupComment on above:Performed By: #### MG, CBC, PHOS, CMP ####[address] [address] USAAST [Catalytic activity/Vol]14 U/KEjzbpy50-07Awi [facility] Physician GroupComment on above:Performed By: #### MG, CBC, PHOS, CMP ####[address] [address] [place] Bilirubin [Mass/Vol]0.4 mg/dLNormal0.3-1.0The [facility] Physician GroupComment on above:Performed By: #### MG, CBC, PHOS, CMP ####[address] [address] USACalcium [Mass/Vol]8.8 mg/dLNormal 8.6-10.3The [facility] Physician GroupComment on above:Performed By: #### MG, CBC, PHOS, CMP ####[place] [address] USAChloride [Moles/Vol]105 mmol/DVaatbh69-961Mna [facility] Comment on above:Performed By: #### MG, CBC, PHOS, CMP ####[place] [address] USACO2 [Moles/Vol]26.3 mmol/L Ipavnw27.0-31.0The [facility] Physician GroupComment on above:Performed By: #### MG, CBC, PHOS, CMP ####[place] [address] USACreatinine [Mass/Vol]0.85 mg/dLNormal0.60-1.20The [facility] Physician GroupComment on above:Performed By: #### MG, CBC, PHOS, CMP ####[place] [address] [place] Creatinine Clr Calc Vapxkfke73.38NormBroward Health North Physician GroupComment on above:Performed By: #### MG, CBC, PHOS, CMP ####[place] [address] USAGFR/1.73 sq M.predicted MDRD (S/P/Bld) [Vol rate/Area]mL/min/{1.73_m2}NormalThe [facility] Physician GroupComment on above:Performed By: #### MG, CBC, PHOS, CMP ####[address]Globulin (S) [Mass/Vol]3.3 g/dLNormal The [facility] Physician GroupComment on above:Performed By: #### MG, CBC, PHOS, CMP ####[address] Glucose [Mass/Vol]198 mg/wZAhml15-428Hjl [facility] Physician GroupComment on above:Result Comment: Random Glucose Reference Range is dependent on time and content of last meal. Glucose of more than 200 mg/dL in a nonstressed, ambulatory subject supports the diagnosis of Diabetes Mellitus. ADA recommended reference rangePerformed By: #### MG, CBC, PHOS, CMP ####[place] [address] USAPotassium [Moles/Vol]4.2 mmol/LNormal3.5-5.1The [facility] Physician GroupComment on above:Performed By: #### MG, CBC, PHOS, CMP ####[place] [address] USAProtein [Mass/Vol]6.5 g/dLNormal6.4-8.9The [facility] Physician GroupComment on above:Performed By: #### MG, CBC, PHOS, CMP ####[place] [address] USASodium [Moles/Vol]140 mmol/UKfoyqa322-687Yae [facility] Physician GroupComment on above: Performed By: #### MG, CBC, PHOS, CMP ####[place] [address] USAUrea nitrogen [Mass/Vol]10 mg/dLNormal7-25The [facility] Physician [facility] MadisonComment on above:Performed By: #### MG, CBC, PHOS, CMP ####[place] [address] USAGlucose Poct Glucometerson 74-82-0965Tkfkxqj9HtwqyaNjo [place] Physician [facility] MadisonComment on above:Result Comment: Glu2: WILL NOTIFY DR/RNPerformed By: #### GLULS ####Point of Care testing,Syagude9Mvdhorl MeterNaval Hospital Pensacola Physician [facility] MadisonComment on above:Result Comment: PERFORMED BY:[address] [place], [place] [phone] MEDICAL DIRECTORMEERA GRIFFITHS M.D.Performed By: #### GLULS ####Point of Care testing, Glucose [Mass/Vol]460 mg/dLOff scale highThe [facility] Physician GroupComment on above:Result Comment: Random Glucose Reference Range is dependent on time and content of last meal. Glucose of more than 200 mg/dL in a nonstressed, ambulatory subject supports the diagnosis of Diabetes Mellitus.Performed By: #### GLULS ####Point of Care testing,Ozkdfky7EznzeaXrbNaval Hospital Pensacola Physician [facility] Comment on above:Result Comment: Glu2: WILL NOTIFY DR/LEONELAerformed By: #### GLULS ####Point of Care testing,Wzaemrl0Vudl Repeat TestNoECU Health North Hospital Physician GroupComment on above:Result Comment: PERFORMED BY:[address] [address] [address] [place]NANDEZUSKWATERLOO, [place] [phone] MEDICAL DIRECTORMEERA GRIFFITHS M.D.Performed By: #### GLULS ####Point of Care testing, Glucose [Mass/Vol]455 mg/dLOff scale highAdventhealth Zephyrhills Physician GroupComment on above:Result Comment: Random Glucose Reference Range is dependent on time and content of last meal. Glucose of more than 200 mg/dL in a nonstressed, ambulatory subject supports the diagnosis of Diabetes Mellitus.Performed By: #### GLULS ####Point of Care testing,Glucose [Mass/Vol]269 mg/dLNaval Hospital Pensacola Physician GroupComment on above:Result Comment: Random Glucose Reference Range is dependent on time and content of last meal. Glucose of more than 200 mg/dL in a nonstressed, ambulatory subject supports the diagnosis of Diabetes Mellitus.PERFORMED BY:[address] [address] [address] MIGUEL IQBALWATERLOO, [place] [phone] MEDICAL NIKI GRIFFITHS M.D. Performed By: #### GLULS ####Point of Care testing,Glucose [Mass/Vol]226 mg/dL [facility] Physician GroupComment on above:Result Comment: Random Glucose Reference Range is dependent on time and content of last meal. Glucose of more than 200 mg/dL in a nonstressed, ambulatory subject supports the diagnosis of Diabetes Mellitus.PERFORMED BY:[address] [address] N[address] MIGU[address] ADDISONDAVIDHOFFMAN [place], [place] [phone] MEDICAL NIKI GRIFFITHS M.D.Performed By: #### GLULS ####Point of Care testing, Glucose [Mass/Vol]120 mg/dLNormBroward Health North Physician GroupComment on above: Result Comment: Random Glucose Reference Range is dependent on time and content of last meal. Glucose of more than 200 mg/dL in a nonstressed, ambulatory subject supports the diagnosis of Diabetes Mellitus.PERFORMED BY:[address] [address] [address] ADDISONDAVIDHOFFMAN [place], [place] [phone] MEDICAL DIRECTORMEERA GRIFFITHS M.D.Performed By: #### GLULS ####Point of Care testing,Magnesiumon 12-28-7958Rlnmntlht [Mass/Vol]1.8 mg/dLLow1.9-2.7The [facility] Physician GroupComment on above:Result Comment: PERFORMED BY:[address] [address] [address] ADDISONDAVIDHOFFMAN ESTAT[place], [place] [phone] MEDICAL DIRECTORMEERA GRIFFITHS M.D.Performed By: #### MG, CBC, PHOS, CMP ####[place] [phone] USANo Panel InformationOrdered By: Audra Wheat on 73-82-7656Zqetoqt Glucose #2 CommentCleaned [facility] Health CenterPhosphoruson 03-20-2024 Phosphate [Mass/Vol]3.2 mg/dLNormal2.5-4.5The [facility] Physician GroupComment on above:Performed By: #### MG, CBC, PHOS, CMP ####[place] [address] USAAerobic Cultureon 70-26-1592Dswsynn CultureNormBroward Health North Physician GroupComment on above:Performed By: #### AERC ####[place] [address] [facility] Complete Blood Count Auto Diffon 80-62-6045Fijtxoaxz (Bld) [#/Vol]0.0 10*3/uL Normal0.0-0.2The [facility] Physician GroupComment on above:Result Comment: PERFORMED BY:[address] [address] [address] ROTHHOFFMAN E[place], [place] [phone] MEDICAL DIRECTORMEERA GRIFFITHS M.D.Performed By: #### CBC, CMP, MG, PHOS ####[place] [address] USABasophils/100 WBC (Bld)0.8 %Normal.The [facility] Comment on above:Performed By: #### CBC, CMP, MG, PHOS ####[place] [address] USAEosinophils (Bld) [#/Vol]0.3 10*3/uLNormal0.0-0.45The [facility] Physician GroupComment on above:Performed By: #### CBC, CMP, MG, PHOS ####[place] [address] USAEosinophils/100 WBC (Bld)5.9 %Normal.The [facility] Physician GroupComment on above:Performed By: #### CBC, CMP, MG, PHOS ####[address] Erythrocyte distribution width (RBC) [Ratio]14.6 %Aehfar76.9-15.3The [facility] Physician GroupComment on above:Performed By: #### CBC, CMP, MG, PHOS ####[place] [address] [place] Hematocrit (Bld) [Volume fraction]28.0 %Low34.0-46.4The [facility] Physician GroupComment on above:Performed By: #### CBC, CMP, MG, PHOS ####[place] [address] USAHemoglobin (Bld) [Mass/Vol]9.3 g/dLLow11.8-15.4The [facility] Physician GroupComment on above: Performed By: #### CBC, CMP, MG, PHOS ####[place] [address] USALymphocytes (Bld) [#/Vol]1.4 10*3/uLNormal 1.00-4.8The [facility] Physician GroupComment on above:Performed By: #### CBC, CMP, MG, PHOS ####[place] [address] USALymphocytes/100 WBC (Bld)27.1 %Normal.The [facility] Comment on above:Performed By: #### CBC, CMP, MG, PHOS ####[address] (RBC) [Entitic mass]30.2 loGkocnq99.7-34.3The [facility] Physician GroupComment on above:Performed By: #### CBC, CMP, MG, PHOS ####[address] (RBC) [Entitic vol]90.9 uOCzuorl98-439Xcs [facility] Physician GroupComment on above:Performed By: #### CBC, CMP, MG, PHOS ####[place] [address] USAMean Corpuscular HGB Conc33.2 g/rLEeffyd93.0-35.0The [facility] Physician GroupComment on above:Performed By: #### CBC, CMP, MG, PHOS ####[place] [address] USAMonocytes (Bld) [#/Vol]0.6 10*3/uL Normal0.0-0.8The [facility] Physician GroupComment on above:Performed By: #### CBC, CMP, MG, PHOS ####[place] [address] USAMonocytes/100 WBC (Bld)11.0 %Normal.The [facility] Comment on above:Performed By: #### CBC, CMP, MG, PHOS ####[place] [address] USANeutrophils (Bld) [#/Vol]2.8 10*3/uLNormal1.8-7.7The [facility] Physician GroupComment on above:Performed By: #### CBC, CMP, MG, PHOS ####[place] [address] USANeutrophils/100 WBC (Bld)55.2 %Normal.The [facility] Physician GroupComment on above:Performed By: #### CBC, CMP, MG, PHOS ####[place] [address] USANRBC% 0.0 /100{WBC}Normal0-0.5The [facility] Physician GroupComment on above:Performed By: #### CBC, CMP, MG, PHOS ####[place] [address] USAPlatelet mean volume (Bld) [Entitic vol]10.1 fL Normal6.3-10.7The [facility] Physician GroupComment on above:Performed By: #### CBC, CMP, MG, PHOS ####[place] [address] USAPlatelets (Bld) [#/Vol]196 10*3/iSWjmnod550-028Otu [facility] Physician GroupComment on above:Performed By: #### CBC, CMP, MG, PHOS ####[place] [address] USARBC (Bld) [#/Vol]3.08 10*6/uLLow3.60-5.00The [facility] Physician GroupComment on above:Performed By: #### CBC, CMP, MG, PHOS ####[place] [address] USAWBC (Bld) [#/Vol]5.0 10*3/uLNormal 3.8-11.6The [facility] Physician GroupComment on above:Performed By: #### CBC, CMP, MG, PHOS ####[place] [address] USAComprehensive Metabolic Panelon 22-05-2357Qinpkae [Mass/Vol]2.8 g/dLLow 3.5-5.7The [facility] Physician GroupComment on above:Performed By: #### CBC, CMP, MG, PHOS ####[address] [address] USAAlbumin/Globulin [Mass ratio]0.9 {ratio}NormalThe [facility] Physician GroupComment on above:Performed By: #### CBC, CMP, MG, PHOS ####[address] [address] USAALP [Catalytic activity/Vol]48 U/BIhzbnd83-812Qoe [facility] Physician GroupComment on above: Performed By: #### CBC, CMP, MG, PHOS ####[address] [address] USAALT [Catalytic activity/Vol]8 U/LNormal7-52The [facility] Physician GroupComment on above:Performed By: #### CBC, CMP, MG, PHOS ####[place] [address] USAAnion gap [Moles/Vol]12.1 mmol/LNormal6.0-15.0The [facility] Physician GroupComment on above:Performed By: #### CBC, CMP, MG, PHOS ####[place] [address] USAAST [Catalytic activity/Vol]13 U/L Etatan51-38Jnz [facility] Physician GroupComment on above:Performed By: #### CBC, CMP, MG, PHOS ####[place] [address] USABilirubin [Mass/Vol]0.4 mg/dLNormal0.3-1.0The [facility] Comment on above:Performed By: #### CBC, CMP, MG, PHOS ####[address] [address] USACalcium [Mass/Vol]8.3 mg/dLLow 8.6-10.3The [facility] Physician GroupComment on above:Performed By: #### CBC, CMP, MG, PHOS ####[address] [address] USAChloride [Moles/Vol]108 mmol/OCerp43-724Cjq [facility] Comment on above:Performed By: #### CBC, CMP, MG, PHOS ####[place] [address] USACO2 [Moles/Vol]24.8 mmol/L Xrkoxf01.0-31.0The [facility] Physician GroupComment on above:Performed By: #### CBC, CMP, MG, PHOS ####[place] [address] USACreatinine [Mass/Vol]0.76 mg/dLNormal0.60-1.20The [facility] Physician GroupComment on above:Performed By: #### CBC, CMP, MG, PHOS ####[address] Creatinine Clr Calc Iqmivpau403.44NormalThCaribou Memorial Hospital Physician [facility] MadisonComment on above:Performed By: #### CBC, CMP, MG, PHOS ####[place] [address] USAGFR/1.73 sq M.predicted MDRD (S/P/Bld) [Vol rate/Area]mL/min/{1.73_m2}NormalThe [facility] Physician GroupComment on above:Performed By: #### CBC, CMP, MG, PHOS ####[place] [address] USAGlobulin (S) [Mass/Vol]3.2 g/dLNormal The [facility] Physician GroupComment on above:Performed By: #### CBC, CMP, MG, PHOS ####[place] [address] [facility] Glucose [Mass/Vol]167 mg/nHBnck38-516Cdj [facility] Physician GroupComment on above:Result Comment: Random Glucose Reference Range is dependent on time and content of last meal. Glucose of more than 200 mg/dL in a nonstressed, ambulatory subject supports the diagnosis of Diabetes Mellitus. ADA recommended reference rangePerformed By: #### CBC, CMP, MG, PHOS ####[place] [address] USAPotassium [Moles/Vol]3.9 mmol/LNormal3.5-5.1The [facility] Physician GroupComment on above:Performed By: #### CBC, CMP, MG, PHOS ####[place] [address] USAProtein [Mass/Vol]6.0 g/dLLow6.4-8.9The [facility] Physician GroupComment on above:Performed By: #### CBC, CMP, MG, PHOS ####[place] [address] USASodium [Moles/Vol]141 mmol/PWljify110-376Slb [facility] Physician GroupComment on above: Performed By: #### CBC, CMP, MG, PHOS ####[place] [address] USAUrea nitrogen [Mass/Vol]10 mg/dLNormal7-25The [facility] Physician GroupComment on above:Performed By: #### CBC, CMP, MG, PHOS ####[place] [address] USAECG 12 lead ECGon 00-23-0693KTZ 12 lead ECGNoECU Health North Hospital Physician [facility] MadisonGlucose Poct Glucometerson 27-24-8271Okuedzk [Mass/Vol]313 mg/dLNoECU Health North Hospital Physician [facility] MadisonComment on above:Result Comment: Random Glucose Reference Range is dependent on time and content of last meal. Glucose of more than 200 mg/dL in a nonstressed, ambulatory subject supports the diagnosis of Diabetes Chris litus.PERFORMED BY:[address] [place], [place] [phone] MEDICAL DIRECTORMEERA GRIFFITHS M.D.Performed By: #### GLULS ####Point of Care testing,Glucose [Mass/Vol]286 mg/dLNaval Hospital [place] [facility]ician [facility] MadisonComment on above:Result Comment: Random Glucose Reference Range is dependent on time and content of last meal. Glucose of more than 200 mg/dL in a nonstressed, ambulatory subject supports the diagnosis of Diabetes Chris litus.PERFORMED BY:[address], [place] [id number] MEDICAL DIRECTORMEERA GRIFFITHS M.D.Performed By: #### GLULS ####Point of Care testing,[id number]: Cleaned MeterNoECU Health [facility] Hospital Physician GroupComment on above:Result Comment: PERFORMED BY:[address] [place], [place] [phone] MEDICAL DIRECTORMEERA GRIFFITHS M.D.Performed By: #### GLULS ####Point of Care testing, Glucose [Mass/Vol]284 mg/dLNaval Hospital Pensacola Physician GroupComment on above: Result Comment: Random Glucose Reference Range is dependent on time and content of last meal. Glucose of more than 200 mg/dL in a nonstressed, ambulatory subject supports the diagnosis of Diabetes Mellitus.Performed By: #### GLULS ####Point of Care testing,Glucose [Mass/Vol]301 mg/dLNaval Hospital Pensacola Physician GroupComment on above:Result Comment: Random Glucose Reference Range is dependent on time and content of last meal. Glucose of more than 200 mg/dL in a nonstressed, ambulatory subject supports the diagnosis of Diabetes Chris litus.PERFORMED BY:[address] [place], [place] [phone] MEDICAL NIKI GRIFFITHS M.D.Performed By: #### GLULS ####Point of Care testing,Glucose [Mass/Vol]171 mg/dLNaval Hospital Pensacola Physician GroupComment on above:Result Comment: Random Glucose Reference Range is dependent on time and content of last meal. Glucose of more than 200 mg/dL in a nonstressed, ambulatory subject supports the diagnosis of Diabetes Chris litus.PERFORMED BY:[address] [place], [place] [phone] MEDICAL NIKI GRIFFITHS M.D.Performed By: #### GLULS ####Point of Care testing,Glucose [Mass/Vol]213 mg/dLNaval Hospital Pensacola Physician GroupComment on above:Result Comment: Random Glucose Reference Range is dependent on time and content of last meal. Glucose of more than 200 mg/dL in a nonstressed, ambulatory subject supports the diagnosis of Diabetes Chris litus.PERFORMED BY:[address] [place], [place] [phone] MEDICAL DIRECTORMEERA GRIFFITHS M.D.Performed By: #### GLULS ####Point of Care testing,Gram stain for investigation of transfusion reactionOrdered By: Troy Moya on 59-80-9854Yuaemghrsmq observation Gram stain Nom (Unsp spec)Achromobacter xylosoxidan MDROAbnAultman HospitalMicroscopic observation Gram stain Nom (Unsp spec)Achromobacter xylosoxidan MDROAbnAultman HospitalHCG ( test) IA.rapid Ql (U)Ordered By: Arun De Souza on 51-98-3821NQT ( test) Ql (U) NegativeAkron Children'S HospitalHCG,Urineon 27-97-4509Vqkv HCG ( test) Ql (U)NegativeNormSedgwick County Memorial HospitalComment on above:Result Comment: PERFORMED BY:[address] [place], [place] [phone] MEDICAL DIRECTORMEERA GRIFFITHS M.D. Performed By: #### UHCG ####[address] [place] [address] USALon 36-28-9700NGjziieKxc [facility] Magnesiumon 66-39-7768Jiqiqxqdv [Mass/Vol]1.6 mg/dLLow1.9-2.7The [facility] MadisonComment on above:Result Comment: PERFORMED BY:[address] [place], [place] [phone] MEDICAL DIRECTORMEERA GRIFFITHS M.D.Performed By: #### CBC, CMP, MG, PHOS ####[address] [place] [address] USAPhosphoruson 94-41-1000Agmnbhoks [Mass/Vol]3.3 mg/dLNormal2.5-4.5The [facility] Physician GroupComment on above:Performed By: #### CBC, CMP, MG, PHOS ####[address] [address] USASerum or plasma trough vancomycin levelOrdered By: Audra Wheat on 20-49-7770Vatsgvtxpj trough [Mass/Vol]16.9 ug/mL10.0-20.0Ak[facility] Children'S HospitalComment on above: Last dose: -Vancomycin,Peakon 29-61-8243Tqnhgghbxh,Peak34.9 ug/nEEzdsuh01.0-40.0 The [facility] Physician GroupComment on above:Order Comment: Comment ?DRAW 1 HOUR AFTER INFUSION COMPLETES Date of last dose?: 20240317 Time of last dose?: 163Result Comment: Last dose: -PERFORMED BY:[address] [place], [place] [phone] MEDICAL DIRECTORMEERA GRIFFITHS M.D.Performed By: #### VANCP ####[address] [address] USAVancomycin,Troughon 03-19-2024 Vancomycin,Vtfscz44.9 ug/kFMbjgzp59.0-20.0The [facility] Physician GroupComment on above:Order Comment: Time of next dose? 629 Date of last dose?: 20240317 Time of last dose?: 163Result Comment: Last dose: -PERFORMED BY:[address] [place], [place] [phone] MEDICAL DIRECTORMEERA GRIFFITHS M.D.Performed By: #### VANCT ####[address] [address] USABacteria identified Aer cx Nom (Unsp spec)Ordered By: Audra Wheat on 41-47-2947Dkkfbnhoyxh Wound Culture Achromobacter xylosoxidan MDROAbnAultman Hospital Superficial Wound CultureAchromobacter xylosoxidan MDROAbnAultman HospitalComplete Blood Count Auto Diffon 97-33-3862Xdezfcgns (Bld) [#/Vol]0.0 10*3/uLNormal0.0-0.2The [facility] Physician GroupComment on above:Result Comment: PERFORMED BY:[address] [place], [place] [phone] MEDICAL DIRECTORMEERA GRIFFITHS M.D. Performed By: #### FE and TIBC, MG, PHOS, CBC, STEPHEN, TSH3, CMP, [id number] ####[place] [address] [place] Basophils/100 WBC (Bld)1.0 %Normal.The [facility] Physician GroupComment on above:Performed By: #### FE and TIBC, MG, PHOS, CBC, STEPHEN, TSH3, CMP, [id number] ####[place] [address] [place] Eosinophils (Bld) [#/Vol]0.3 10*3/uLNormal0.0-0.45The [facility] Comment on above:Performed By: #### FE and TIBC, MG, PHOS, CBC, STEPHEN, TSH3, CMP, [id number] ####[place] [address] USAEosinophils/100 WBC (Bld)5.2 %Normal.The [facility] Physician GroupComment on above:Performed By: #### FE and TIBC, MG, PHOS, CBC, STEPHEN, TSH3, CMP, [id number] ####[place] [address] [place] Erythrocyte distribution width (RBC) [Ratio]14.6 %Gqppbz01.9-15.3The [facility] Physician GroupComment on above:Performed By: #### FE and TIBC, MG, PHOS, CBC, STEPHEN, TSH3, CMP, [id number] ####[place] [address] USAHematocrit (Bld) [Volume fraction]27.9 %Low34.0-46.4 The [facility] Physician GroupComment on above:Performed By: #### FE and TIBC, MG, PHOS, CBC, STEPHEN, TSH3, CMP, [id number] ####[place] [address] USAHemoglobin (Bld) [Mass/Vol]9.3 g/dLLow 11.8-15.4The [facility] Physician GroupComment on above:Performed By: #### FE and TIBC, MG, PHOS, CBC, STEPHEN, TSH3, CMP, [id number] ####[place] [address] USALymphocytes (Bld) [#/Vol]1.4 10*3/uL Normal1.00-4.8The [facility] Physician GroupComment on above:Performed By: #### FE and TIBC, MG, PHOS, CBC, STEPHEN, TSH3, CMP, [id number] ####[place] [address] USALymphocytes/100 WBC (Bld)28.4 %Normal.The [facility] Physician GroupComment on above:Performed By: #### FE and TIBC, MG, PHOS, CBC, STEPHEN, TSH3, CMP, [id number] ####[place] [address] [facility] (RBC) [Entitic mass]30.1 pgNormal 24.7-34.3The [facility] Physician GroupComment on above:Performed By: #### FE and TIBC, MG, PHOS, CBC, STEPHEN, TSH3, CMP, [id number] ####[place] [address] [facility] (RBC) [Entitic vol]90.6 fLNormal 80-100The [facility] Physician GroupComment on above:Performed By: #### FE and TIBC, MG, PHOS, CBC, STEPHEN, TSH3, CMP, [id number] ####[place] [address] USAMean Corpuscular HGB Conc33.2 g/dL Jupgzi19.0-35.0The [facility] Physician GroupComment on above:Performed By: #### FE and TIBC, MG, PHOS, CBC, STEPHEN, TSH3, CMP, [id number] ####[place] [address] USAMonocytes (Bld) [#/Vol]0.6 10*3/uLNormal0.0-0.8The [facility]ician GroupComment on above:Performed By: #### FE and TIBC, MG, PHOS, CBC, STEPHEN, TSH3, CMP, [id number] ####[place] [address] USAMonocytes/100 WBC (Bld)11.9 %Normal.The [facility] Physician GroupComment on above:Performed By: #### FE and TIBC, MG, PHOS, CBC, STEPHEN, TSH3, CMP, [id number] ####[place] [address] USANeutrophils (Bld) [#/Vol]2.6 10*3/uLNormal1.8-7.7The [facility]ician GroupComment on above: Performed By: #### FE and TIBC, MG, PHOS, CBC, STEPHEN, TSH3, CMP, [id number] ####[place] [address] [place] Neutrophils/100 WBC (Bld)53.5 %Normal.The [facility] Physician GroupComment on above:Performed By: #### FE and TIBC, MG, PHOS, CBC, STEPHEN, TSH3, CMP, [id number] ####[place] [address] USANRBC% 0.1 /100{WBC}Normal0-0.5The [facility] Physician GroupComment on above:Performed By: #### FE and TIBC, MG, PHOS, CBC, STEPHEN, TSH3, CMP, [id number] ####[place] [address] USAPlatelet mean volume (Bld) [Entitic vol]10.1 fLNormal6.3-10.7The [facility]ician GroupComment on above:Performed By: #### FE and TIBC, MG, PHOS, CBC, STEPHEN, TSH3, CMP, [id number] ####[place] [address] [place] Platelets (Bld) [#/Vol]177 10*3/uLSignificant change ghxh899-176Shy [facility] MadisonComment on above:Performed By: #### FE and TIBC, MG, PHOS, CBC, STEPHEN, TSH3, CMP, [id number] ####[place] [address] USARBC (Bld) [#/Vol]3.08 10*6/uLLow3.60-5.00The [facility] MadisonComment on above:Performed By: #### FE and TIBC, MG, PHOS, CBC, STEPHEN, TSH3, CMP, [id number] ####[place] [address] USAWBC (Bld) [#/Vol]4.9 10*3/uLNormal3.8-11.6The [facility] MadisonComment on above:Performed By: #### FE and TIBC, MG, PHOS, CBC, STEPHEN, TSH3, CMP, [id number] ####[address] StreetComprehensive Metabolic Panelon 03-18-2024 Albumin [Mass/Vol]2.8 g/dLLow3.5-5.7The [facility] MadisonComment on above:Performed By: #### FE and TIBC, MG, PHOS, CBC, STEPHEN, TSH3, CMP, [id number] ####[address] Albumin/Globulin [Mass ratio]1.0 {ratio}NormalThe [facility] Comment on above:Performed By: #### FE and TIBC, MG, PHOS, CBC, STEPHEN, TSH3, CMP, [id number] ####[address] [place] [address] USAALP [Catalytic activity/Vol]46 U/NYosyqv99-329Plc [facility] Comment on above:Performed By: #### FE and TIBC, MG, PHOS, CBC, STEPHEN, TSH3, CMP, [id number] ####[address] [address] USAALT [Catalytic activity/Vol]10 U/LNormal7-52The [facility] Comment on above:Performed By: #### FE and TIBC, MG, PHOS, CBC, STEPHEN, TSH3, CMP, [id number] ####[place] [address] USAAnion gap [Moles/Vol]11.1 mmol/LNormal6.0-15.0The [facility] Comment on above:Performed By: #### FE and TIBC, MG, PHOS, CBC, STEPHEN, TSH3, CMP, [id number] ####[place] [address] USAAST [Catalytic activity/Vol]18 U/LJskpvr45-47Xen [facility] Comment on above:Performed By: #### FE and TIBC, MG, PHOS, CBC, STEPHEN, TSH3, CMP, [id number] ####[address] [address] USABilirubin [Mass/Vol]0.6 mg/dLNormal0.3-1.0The [facility] Comment on above:Performed By: #### FE and TIBC, MG, PHOS, CBC, STEPHEN, TSH3, CMP, [id number] ####[address] [address] USACalcium [Mass/Vol]8.2 mg/dLLow8.6-10.3The [facility]ician GroupComment on above:Performed By: #### FE and TIBC, MG, PHOS, CBC, STEPHEN, TSH3, CMP, [id number] ####[address] Chloride [Moles/Vol]108 mmol/IZquh43-103Tls [facility] Physician GroupComment on above:Performed By: #### FE and TIBC, MG, PHOS, CBC, STEPHEN, TSH3, CMP, [id number] ####[place] [address] USACO2 [Moles/Vol]25.8 mmol/GQqeypk75.0-31.0The [facility] Physician GroupComment on above:Performed By: #### FE and TIBC, MG, PHOS, CBC, STEPHEN, TSH3, CMP, [id number] ####[address] Creatinine [Mass/Vol]0.74 mg/dLNormal0.60-1.20The [facility] Comment on above:Performed By: #### FE and TIBC, MG, PHOS, CBC, STEPHEN, TSH3, CMP, [id number] ####[place] [address] USACreatinine Clr Calc Frxufawd557.91NoECU Health North Hospital Physician GroupComment on above:Performed By: #### FE and TIBC, MG, PHOS, CBC, STEPHEN, TSH3, CMP, [id number] ####[place] [address] USAGFR/1.73 sq M.predicted MDRD (S/P/Bld) [Vol rate/Area]mL/min/{1.73_m2}Normal The [facility] MadisonComment on above:Performed By: #### FE and TIBC, MG, PHOS, CBC, STEPHEN, TSH3, CMP, [id number] ####[place] [address] USAGlobulin (S) [Mass/Vol]2.9 g/dLNoECU Health North Hospital Physician GroupComment on above:Performed By: #### FE and TIBC, MG, PHOS, CBC, STEPHEN, TSH3, CMP, [id number] ####[address] [place] [address] USAGlucose [Mass/Vol]186 mg/gBPjfn60-887Fpb [facility] GroupComment on above:Result Comment: Random Glucose Reference Range is dependent on time and content of last meal. Glucose of more than 200 mg/dL in a nonstressed, ambulatory subject supports the diagnosis of Diabetes Mellitus. ADA recommended reference rangePerformed By: #### FE and TIBC, MG, PHOS, CBC, STEPHEN, TSH3, CMP, [id number] ####[place] [address] USAPotassium [Moles/Vol]3.9 mmol/LNormal 3.5-5.1The [facility] Physician GroupComment on above:Performed By: #### FE and TIBC, MG, PHOS, CBC, STEPHEN, TSH3, CMP, [id number] ####[place] [address] USAProtein [Mass/Vol]5.7 g/dLLow6.4-8.9 The [facility] Physician GroupComment on above:Performed By: #### FE and TIBC, MG, PHOS, CBC, STEPHEN, TSH3, CMP, [id number] ####[place] [address] USASodium [Moles/Vol]141 mmol/YVseamg839-581Kxm [facility]ician GroupComment on above:Performed By: #### FE and TIBC, MG, PHOS, CBC, STEPHEN, TSH3, CMP, [id number] ####[place] [address] USAUrea nitrogen [Mass/Vol]14 mg/dLNormal7-25The [facility]ician GroupComment on above:Performed By: #### FE and TIBC, MG, PHOS, CBC, STEPHEN, TSH3, CMP, [id number] ####[place] [address] USAFerritin [Mass/volume] in Serum or Plasma Ordered By: Audra Wheat on 23-48-4696Yldswuzf [Mass/Vol]491.1 ng/mLHigh 11.0-306.8[facility]'S HospitalComment on above:Performed By: #### FE and TIBC, MG, PHOS, CBC, STEPHEN, TSH3, CMP, [id number] ####[facility] [address]apick[address] [place] [address] USAFolate [Mass/volume] in Serum or PlasmaOrdered By: Audra Wheat on 32-79-6514Qhvmmx [Mass/Vol]23.0 ng/mL>5.9 [facility]S HospitalComment on above:Folate reference range: >5.9 ng/mlThe WHO technical consultation on folate and vitamin p14edmydlishkme has determined that folate concentrations lessthan 4 ng/ml are considered deficient. Glucose Poct Glucometerson 72-69-7483Vhljwmd [Mass/Vol]349 mg/dLNoECU Health North Hospital Physician GroupComment on above:Result Comment: Random Glucose Reference Range is dependent on time and content of last meal. Glucose of more than 200 mg/dL in a nonstressed, ambulatory subject supports the diagnosis of Diabetes Mellitus.PERFORMED BY:[address] M[address] [place]DE[place], [place] [phone] MEDICAL DIRECTORMEERA GRIFFITHS M.D. Performed By: #### GLULS ####Point of Care testing,Glucose [Mass/Vol]247 mg/dL NormalAdventhealth Zephyrhills Physician GroupComment on above:Result Comment: Random Glucose Reference Range is dependent on time and content of last meal. Glucose of more than 200 mg/dL in a nonstressed, ambulatory subject supports the diagnosis of Diabetes Mellitus.PERFORMED BY:[address] MIGU[address] IQBALWATERLOO, [place] [phone] MEDICAL DIRECTORMEERA GRIFFITHS M.D.Performed By: #### GLULS ####Point of Care testing, Glucose [Mass/Vol]255 mg/dLNaval Hospital Pensacola Physician GroupComment on above: Result Comment: Random Glucose Reference Range is dependent on time and content of last meal. Glucose of more than 200 mg/dL in a nonstressed, ambulatory subject supports the diagnosis of Diabetes Mellitus.PERFORMED BY:[address] [place] [phone] MEDICAL DIRECTORMEERA GRIFFITHS M.D.Performed By: #### GLULS ####Point of Care testing,Glucose [Mass/Vol]134 mg/dLNaval Hospital Pensacola Physician [facility] MadisonComment on above:Result Comment: Random Glucose Reference Range is dependent on time and content of last meal. Glucose of more than 200 mg/dL in a nonstressed, ambulatory subject supports the diagnosis of Diabetes Mellitus.PERFORMED BY:[address] [place], [place] [phone] MEDICAL DIRECTORMEERA GRIFFITHS M.D.Performed By: #### GLULS ####Point of Care testing,Iron [Mass/volume] in Serum or PlasmaOrdered By: Audra Wheat on 46-70-5034Jsuo [Mass/Vol]23 ug/eDMuv28-781CrsfgdhwyAkron Children'S HospitalComment on above:Performed By: #### FE and TIBC, MG, PHOS, CBC, STEPHEN, TSH3, CMP, [id number] ####[address] [address] USAIron and TIBC Profileon 03-18-2024% Iron Saturation 11.0 %Rys15-07Fdb [facility] MadisonComment on above:Performed By: #### FE and TIBC, MG, PHOS, CBC, STEPHEN, TSH3, CMP, [id number] ####[address] [address] USATotal Iron Binding Tlxtqpyv352 ug/mJSxe817-903Mks [facility]ician GroupComment on above:Performed By: #### FE and TIBC, MG, PHOS, CBC, STEPHEN, TSH3, CMP, [id number] ####[address] [address] USAIron binding capacity [Mass/volume] in Serum or PlasmaOrdered By: Audra Wheat on 70-08-3335Dkeh binding capacity [Mass/Vol]210 ug/eNVvx033-810NqghzwktlAkron Children'S Hospital Iron saturation [Mass Fraction] in Serum or PlasmaOrdered By: Audra Wheat on 13-03-1246Eczl saturation [Mass fraction]11.0 %Hkg42-20PaiwghymgAkron Children'S HospitalMagnesiumon 04-98-1961Pjxuwygjh [Mass/Vol]1.6 mg/dLLow1.9-2.7The [facility] MadisonComment on above:Result Comment: PERFORMED BY:[address] [place], [place] [phone] MEDICAL DIRECTORMEERA GRIFFITHS M.D.Performed By: #### FE and TIBC, MG, PHOS, CBC, STEPHEN, TSH3, CMP, [id number] ####[address] [address] USAPhosphoruson 98-44-0013Mwdxihoxh [Mass/Vol]3.9 mg/dL Normal2.5-4.5The [facility] Physician GroupComment on above:Performed By: #### FE and TIBC, MG, PHOS, CBC, STEPHEN, TSH3, CMP, [id number] ####[address] [address] USASuperficial Wound Cultureon 56-81-3264Lokpfjwwcij Wound CultureNormalThe [facility] MadisonComment on above:Performed By: #### CUSUP ####[address] [address] USAThyrotropin [Units/volume] in Serum or PlasmaOrdered By: Audra Wheat on 20-51-2966DZW Qn8.44 m[IU]/LHigh0.45-5.33[facility]'S HospitalComment on above:Result Comment: PERFORMED BY:[address] [place], [place] [phone] MEDICAL DIRECTORMEERA GRIFFITHS M.D.Performed By: #### FE and TIBC, MG, PHOS, CBC, STEPHEN, TSH3, CMP, [id number] ####[address] [address] USATransferrin [Mass/volume] in Serum or PlasmaOrdered By: Audra Wheat on 51-19-0314Xnmtpysweqj [Mass/Vol]150 mg/nFPpc955-164IqfpugrarAkron Children'S HospitalComment on above:Performed By: #### FE and TIBC, MG, PHOS, CBC, STEPHEN, TSH3, CMP, [id number] ####[place] [address] [place] [id number] USAVit. B12/Folate Profileon 08-91-3278Rwjxro15.0 ng/mLNormal>5.9The [facility] Physician GroupComment on above:Result Comment: Folate reference range: >5.9 ng/ml The WHO technical consultation on folate and vitamin b12 deficiencies has determined that folate concentrations less than 4 ng/ml are considered deficient.Performed By: #### FE and TIBC, MG, PHOS, CBC, STEPHEN, TSH3, CMP, [id number] ####[place] [address] [place] [id number] USAVitamin B12 ser/plasOrdered By: Audra Wheat on 25-34-7450Yubxfeyvy (Vitamin B12) [Mass/Vol]620 pg/wWWriqtn125-847DokvubpgdAkron Children'S HospitalComment on above:Performed By: #### FE and TIBC, MG, PHOS, CBC, STEPHEN, TSH3, CMP, [id number] ####[place] [address] [place] [id number] USAAlanine aminotransferase [Enzymatic activity/volume] in Serum or PlasmaOrdered By: Jorge Early on 58-70-9383IUQ [Catalytic activity/Vol]12 U/LNormal7-52[facility]S HospitalComment on above:Performed By: #### CBC, CMP, CUBLD ####[place] [address] USAAlbumin [Mass/volume] in Serum or Plasma by Bromocresol green (BCG) dye binding methoOrdered By: Jorge Early on 35-65-8216Lfvawjt BCG dye [Mass/Vol]3.2 g/dLLow3.5-5.7FThe Surgical Hospital at SouthwoodsAlkaline phosphatase [Enzymatic activity/volume] in Serum or Plasma Ordered By: Jorge Early on 66-83-0176SXG [Catalytic activity/Vol]51 U/LNormal 34-104[facility]S HospitalComment on above:Performed By: #### CBC, CMP, CUBLD ####[address] [address] USAAspartate aminotransferase [Enzymatic activity/volume] in Serum or Plasma Ordered By: Jorge Early on 26-34-0560QQM [Catalytic activity/Vol]23 U/LNormal 13-39[facility] HospitalComment on above:Performed By: #### CBC, CMP, CUBLD ####[place] [address] USAAutomated basophil %Ordered By: Jorge Early on 60-44-9725Ldrmpvgey/100 WBC (Bld)0.8 %Normal.[facility]'S HospitalComment on above:Performed By: #### CBC, CMP, CUBLD ####[place] [address] USAAutomated basophil countOrdered By: Jorge Early on 70-38-0107Ihyqluspz (Bld) [#/Vol]0.1 10*3/uLNormal0.0-0.2FThe Surgical Hospital at SouthwoodsComment on above:Result Comment: PERFORMED BY:[address] [place], [place] [phone] MEDICAL DIRECTORMEERA GRIFFITHS M.D.Performed By: #### CBC, CMP, CUBLD ####[address] [address] USAAutomated blood monocyte countOrdered By: Jorge Early on 49-75-1213Jzgnnmfey (Bld) [#/Vol]0.6 10*3/uLNormal0.0-0.8[facility] HospitalComment on above:Performed By: #### CBC, CMP, CUBLD ####[place] [address] USAAutomated eosinophil %Ordered By: Jorge Early on 95-86-7122Znlchlbvqln/100 WBC (Bld)2.9 %Normal.[facility] Comment on above:Performed By: #### CBC, CMP, CUBLD ####[facility] [address] [place] [address] USAAutomated eosinophil count Ordered By: Jorge Early on 86-65-0721Loqdxafrrfc (Bld) [#/Vol]0.2 10*3/uLNormal 0.0-0.45[facility] HospitalComment on above:Performed By: #### CBC, CMP, CUBLD ####[facility] [address] [place] [address] USAAutomated monocyte %Ordered By: Jorge Early on 80-71-7888Ixexweylc/100 WBC (Bld)9.2 %Normal.[facility]'S HospitalComment on above: Performed By: #### CBC, CMP, CUBLD ####[facility] [address] [place] [id number] USAAutomated neutrophil %Ordered By: Jorge Early on 24-55-0271Voqvxohcwrp/100 WBC (Bld)62.3 %Normal.[facility]'S HospitalComment on above:Performed By: #### CBC, CMP, CUBLD ####[facility] [address] [place] [address] USABacteria identified Aer cx Nom (Unsp spec)Ordered By: Jamie Mehta on 98-49-2580Wvsnnwgaynu Wound CultureAchromobacter xylosoxidan MDROAbnAultman Hospital Superficial Wound CultureAchromobacter xylosoxidan MDROAbnAultman HospitalBacterial blood cultureOrdered By: Jorge Early on 51-41-5605Ipbkhluo identified Cx Nom (Bld)NO GROWTH 5 DAYSAkron Children'S HospitalBacteria identified Cx Nom (Bld)NO GROWTH [facility] HospitalB[facility] identified Cx Nom (Bld)NO GROWTH 5 [facility] HospitalBacteria identified Cx Nom (Bld)NO GROWTH 5 [facility] HospitalBilirubin.total [Mass/volume] in Serum or PlasmaOrdered By: Jorge Early on 26-22-5996Xisdccssr [Mass/Vol]0.6 mg/dLNormal0.3-1.0 [facility] HospitalComment on above:Performed By: #### CBC, CMP, CUBLD ####[address] [address] [place] Blood Cultureon [id number] identified Cx Nom (Bld)NO GROWTH 5 DAYS PERFORMED BY: [facility] [address] [place] [address] PATHOLOGIST REFRIGERATION PERSON MEERA GRIFFITHS M.D.[facility] Physician GroupComment on above:Performed By: #### CBC, CMP, CUBLD ####[address] [address] [place]ABacteria identified Cx Nom (Bld)NO GROWTH 5 DAYS PERFORMED BY: [address] [address] PATHOLOGIST REFRIGERATION PERSON MEERA GRIFFITHS M.D.[facility] Physician GroupComment on above:Performed By: #### CBC, CMP, CUBLD ####[address] [address] [place]AC reactive protein [Mass/volume] in Serum or Plasma Ordered By: Jorge Early on [id number] [Mass/Vol]9.0 mg/dLHigh0.0-0.5 [facility] HospitalC-Reactive Proteinon [id number]-Reactive Protein9.0 mg/dLHigh0.0-0.5[facility] MadisonComment on above:Result Comment: PERFORMED BY:[address] [id number] MEDICAL DIRECTORMEERA GRIFFITHS M.D.Performed By: #### LACTIC, ESR, CRP ####[address] [place] abdomen pelvis wo conon [id number] abdomen pelvis wo conNormalThe [facility] Physician [facility] MadisonCalcium [Mass/volume] in Serum or PlasmaOrdered By: Jorge Early on [id number] [Mass/Vol]8.5 mg/dLLow 8.6-10.3FThe Surgical Hospital at SouthwoodsComment on above:Performed By: #### CBC, CMP, CUBLD ####Mark [place] [id number] USACarbon dioxide, total [Moles/volume] in Serum or PlasmaOrdered By: Jorge Early on 71-67-9420VL6 [Moles/Vol]22.6 mmol/DEleguw25.0-31.0Ak[facility] Children'S HospitalComment on above:Performed By: #### CBC, CMP, CUBLD ####[place] [address] [place] Chloride [Moles/volume] in Serum or PlasmaOrdered By: Jorge Early on 03-17-2024 Chloride [Moles/Vol]109 mmol/KKqhl65-943BzpecgpzkAkron Children'S HospitalComment on above:Performed By: #### CBC, CMP, CUBLD ####[place] [address] USAComplete Blood Count Auto Diffon 17-71-4935Xogs Corpuscular HGB Conc33.0 g/wXMnoewg54.0-35.0The [facility] Physician GroupComment on above:Performed By: #### CBC, CMP, CUBLD ####[place] [address] USAMonocytes/100 WBC (Bld)22.55 %High0.00-20.00The [facility] Physician GroupComment on above:Result Comment: For adults in ED, MDW > 20.0 may be associated with a higher risk of sepsis during the first 12 hrs of hospital admissionPerformed By: #### CBC, CMP, CUBLD ####[address] [address] [place] NRBC%0.1 /100{WBC}Normal0-0.5The [facility] Physician GroupComment on above: Performed By: #### CBC, CMP, CUBLD ####[place] [address] USAComprehensive Metabolic Panelon 63-74-4506Mhyozmc [Mass/Vol]3.2 g/dLLow3.5-5.7The [facility] Physician GroupComment on above: Performed By: #### CBC, CMP, CUBLD ####[address] [address] USACreatinine Clr Calc Ojqrzdci06.21NormalThe [facility] Physician [facility] Health MadisonComment on above:Result Comment: PERFORMED BY:[place] [address] [address] [place]DISON[place], [place] [phone] MEDICAL DIRECTORMEERA GRIFFITHS M.D.Performed By: #### CBC, CMP, CUBLD ####[address] [address] USAGFR/1.73 sq M.predicted MDRD (S/P/Bld) [Vol rate/Area]mL/min/{1.73_m2}NormalThe [place]oylestown HealthComment on above:Performed By: #### CBC, CMP, CUBLD ####[address] [address] USACreatinine [Mass/volume] in Serum or PlasmaOrdered By: Jorge Early on 22-13-5773Iasepcwnqm [Mass/Vol]0.81 mg/dLNormal0.60-1.20[facility] Children'S HospitalComment on above:Performed By: #### CBC, CMP, CUBLD ####[address] [address] USAErythrocyte Sedimentation Rateon 54-19-6821SDP (Bld) [Velocity]114 mm/hHigh0-29The [place] HealthComment on above: Result Comment: PERFORMED BY:[place] [address] [address] [place], [place] [phone] MEDICAL DIRECTORMEERA GRIFFITHS M.D. Performed By: #### LACTIC, ESR, CRP ####[address] USAErythrocyte distribution width [Ratio] by Automated countOrdered By: Jorge Early on 05-08-4704Efnwghhpxnu distribution width (RBC) [Ratio]14.9 %Uvmsbz70.9-15.3FThe Surgical Hospital at SouthwoodsComment on above: Performed By: #### CBC CMP, CUBLD ####[place] [address] [place] [address] USAErythrocyte sedimentation rate by Photometric method Ordered By: Jorge Early on 21-90-3486MZV Photometric method (Bld) [Velocity]114 mm/hrHigh0-29[facility] Children'S HospitalErythrocytes [#/volume] in Blood by Automated countOrdered By: Jorge Early on 16-13-1323BFK (Bld) [#/Vol]3.45 10*6/uLLow3.60-5.00[facility] Children'S HospitalComment on above:Performed By: #### CBC CMP, CUBLD ####[address] [address] USAGlucose [Mass/volume] in Serum or PlasmaOrdered By: Jorge Early on 90-62-2461Nlkwaav [Mass/Vol]132 mg/eJTzgf21-943IeoxyrcyeAkron Children'S HospitalComment on above:ADA recommended reference rangeRandom Glucose Reference Range is dependent on time and content of last meal. Glucose of more than 200 mg/dL in a nonstressed, ambulatory subject supports the diagnosisof Diabetes Mellitus.Result Comment: Random Glucose Reference Range is dependent on time and content of last meal. Glucose of more than 200 mg/dL in a nonstressed, ambulatory subject supports the diagnosis of Diabetes Mellitus. ADA recommended reference rangePerformed By: #### CBC, CMP, CUBLD ####[place] [address] [place] [address] USAHematocrit [Volume Fraction] of Blood by Automated countOrdered By: Jorge Early on 03-17-2024 Hematocrit (Bld) [Volume fraction]31.6 %Low34.0-46.4FThe Surgical Hospital at SouthwoodsComment on above:Performed By: #### CBC, CMP, CUBLD ####[address] [address] USAHemoglobin [Mass/volume] in BloodOrdered By: Jorge Early on 41-67-2751Kcdiwzjglm (Bld) [Mass/Vol]10.4 g/dL Low11.8-15.4FThe Surgical Hospital at SouthwoodsComment on above:Performed By: #### CBC, CMP, CUBLD ####[place] [address] [place] [address] USALactate [Moles/volume] in Serum or PlasmaOrdered By: Jorge Early on 45-85-6448Gcabqhu [Moles/Vol]1.9 mmol/LNormal0.5-2.2FThe Surgical Hospital at SouthwoodsComment on above:Result Comment: PERFORMED BY:[address] [place], [place] [phone] MEDICAL DIRECTORMEERA GRIFFITHS M.D.Performed By: #### LACTIC, ESR, CRP ####[address] USALeukocytes [#/volume] corrected for nucleated erythrocytes in Blood by Automated counOrdered By: Jorge Early on 16-15-7466FWQ corrected for nucl RBC Auto (Bld) [#/Vol]6.1 10*3/uL3.8-11.6FThe Surgical Hospital at SouthwoodsLeukocytes [#/volume] in Blood by Automated countOrdered By: Jorge Early on 54-23-5236HLF (Bld) [#/Vol]6.1 10*3/uLNormal3.8-11.6FThe Surgical Hospital at SouthwoodsComment on above:Performed By: #### CBC, CMP, CUBLD ####[address] [address] USALymphocytes [#/volume] in Blood by Automated count Ordered By: Jorge Early on 00-07-0981Slmkstadeny (Bld) [#/Vol]1.5 10*3/uLNormal 1.00-4.8[facility] Children'S HospitalComment on above:Performed By: #### CBC, CMP, CUBLD ####[address] [address] USALymphocytes/100 leukocytes in Blood by Automated countOrdered By: Jorge Early on 71-58-2621Sevnpdrrtza/100 WBC (Bld)24.8 %Normal.[facility] Children'S HospitalComment on above:Performed By: #### CBC, CMP, CUBLD ####[place] [address] [facility] [Entitic mass] by Automated countOrdered By: Jorge Early on 33-74-9658GBR (RBC) [Entitic mass]30.2 weAjbktb16.7-34.3FThe Surgical Hospital at SouthwoodsComment on above:Performed By: #### CBC, CMP, CUBLD ####[place] [address] [facility] Auto (RBC) [Mass/Vol]Ordered By: Jorge Early on 31-29-9954UZJF (RBC) [Mass/Vol]33.0 g/dL32.0-35.0[facility] CampusV [Entitic volume] by Automated countOrdered By: Jorge Early on 01-47-3740WEB (RBC) [Entitic vol]91.5 lAHnttfr78-347CsshgupesAkron Children'S HospitalComment on above:Performed By: #### CBC, CMP, CUBLD ####[place] [address] USAMonocyte distribution width [Entitic volume] in Blood by AutomatedOrdered By: Jorge Early on 03-17-2024 Monocyte distribution width Auto (Bld) [Entitic vol]22.55 %High0.00-20.00 [facility]'S HospitalComment on above:For adults in ED, MDW > 20.0 may be associated with a higher risk of sepsis during the first 12 hrs of hospital admissionNeutrophils [#/volume] in Blood by Automated countOrdered By: Jorge Early on 33-09-6088Eclmsxauyrq (Bld) [#/Vol]3.8 10*3/uLNormal1.8-7.7 [facility]'S HospitalComment on above:Performed By: #### CBC, CMP, CUBLD ####[place] [address] No Panel InformationOrdered By: Jorge Early on 64-32-5171Fyzaxvwtw GFR (CKD-EPI)> 60.0 mL/MinAkron Children'S HospitalPharmacy Creatinine Clearance (Chem96.21[facility] Children'S HospitalNucleated erythrocytes [Presence] in Blood by Automated countOrdered By: Jorge Early on 03-17-2024 Nucleated RBC Auto Ql (Bld)0.1 /100{WBC}0-0.5FThe Surgical Hospital at Southwoods Platelet mean volume [Entitic volume] in Blood by Automated countOrdered By: Jorge Early on 18-20-2574Uaxulwnk mean volume (Bld) [Entitic vol]10.5 fLNormal 6.3-10.7FThe Surgical Hospital at SouthwoodsComment on above:Performed By: #### CBC, CMP, CUBLD ####[place] [address] USAPlatelets [#/volume] in Blood by Automated countOrdered By: Jorge Early on 67-62-8144Vdtfcvtxm (Bld) [#/Vol]227 10*3/zUWvssty536-565RxjzsjzvjAkron Children'S HospitalComment on above:Performed By: #### CBC, CMP, CUBLD ####[place] [address] [place] Potassium [Moles/volume] in Serum or PlasmaOrdered By: Jorge Early on 77-07-2210Mcazellgw [Moles/Vol]3.7 mmol/LNormal3.5-5.1FThe Surgical Hospital at SouthwoodsComment on above:Performed By: #### CBC, CMP, CUBLD ####[place] [address] USAProtein [Mass/volume] in Serum or PlasmaOrdered By: Jorge Early on 09-87-5786Zpttvif [Mass/Vol]6.6 g/dLNormal6.4-8.9[facility] Children'S HospitalComment on above:Performed By: #### CBC, CMP, CUBLD ####[facility] [place] [address] USASerum globulin measurement by calculation (mass/volume)Ordered By: Jorge Early on 30-23-2048Fjmtpmwd (S) [Mass/Vol]3.4 g/dLNoOhio Valley HospitalComment on above:Performed By: #### ADOLFO LEIVA, CUBLD ####[address] [address] USASerum or plasma albumin/globulin mass ratioOrdered By: Jorge Early on 98-93-0754Rmjkjpi/Globulin [Mass ratio]0.9 {ratio}[facility] of God HospitalComment on above:Performed By: #### ADOLFO LEIVA, CUBLD ####[place] [address] USASerum or plasma anion gap determinationOrdered By: Jorge Early on 59-82-4354Bemcy gap [Moles/Vol]15.1 mmol/LHigh6.0-15.0[facility] Children'S HospitalComment on above:Performed By: #### ADOLFO LEIVA, CUBLD ####[address] [address] USASodium [Moles/volume] in Serum or PlasmaOrdered By: Jorge Early on 13-28-0954Wzlxoy [Moles/Vol]143 mmol/IQosizv289-682MulsevylbAkron Children'S HospitalComment on above:Performed By: #### ADOLFO LEIVA, CUBLD ####[address] [address] [place] Superficial Wound Cultureon 24-88-7428Pfwompfgvev Wound CultureNoECU Health North Hospital Physician GroupComment on above:Performed By: #### CUSUP ####[address] [address] USAUrea nitrogen [Mass/volume] in Serum or PlasmaOrdered By: Jorge Early on 34-39-4212Ceoz nitrogen [Mass/Vol]19 mg/dLNormal7-25[facility]'S HospitalComment on above:Performed By: #### CBC CMP, CUBLD ####[address] [address] USAVASHE/HYPOCHLOROUS ACIDon 51-54-0945Zbsnznj in clinic today.MANUALLY TRANSCRIBED RESULTSProBucyrus Community Hospital SystemOptifoam Gentle Sacrumon 68-20-2141Gpmrrut in clinic today. MANUALLY TRANSCRIBED RESULTSProMedica Health SystemVASHE/HYPOCHLOROUS ACIDon 58-89-8404Bvssofr in clinic today.MANUALLY TRANSCRIBED RESULTSProBucyrus Community Hospital SystemXeroform 4x4on 81-97-7629Jscbwfl in clinic today. MANUALLY TRANSCRIBED RESULTSProBucyrus Community Hospital SystemCBC AND AUTO DIFFon 01-32-3531SQGULSKI BASOPHIL0.0 X10E9/LNormal0.0-0.2PChildren's Hospital of Columbus Comment on above:Performed By: #### [facility]INE [facility], 1989-10, , 19262-7 #### [facility] ([id number]) [address] [place] [address]KCBBHWZP NEUTROPHIL4.4 X10E9/LNormal1.5-6.6ProPeterson Regional Medical CenterComment on above:Performed By: #### [facility]RI[facility]INE [facility], 1987-10, , 51576-4 #### [facility] ([id number]) [address] [place] [address]Vzkpfqlis/100 WBC (Bld)0.5 %NormalUC Medical Center Comment on above:Performed By: #### [facility]RISTINE [facility], 1987-10, , 14073-7 #### [facility] ([id number]) [address] [place] [address] 94[address]Xgtyjerfilv (Bld) [#/Vol]0.3 10*3/uLNormal0.0-0.4UC Medical CenterComment on above:Performed By: #### CBCA [facility], 1989-10, , 974[address]-2 #### [facility] ([id number]) [address] [place] [address] 101[address]Nfcvnreerly/100 WBC (Bld)3.8 %NormalUC Medical Center Comment on above:Performed By: #### ADOLFO KING, 1989-10, , 63157-9 #### [facility] ([id number]) [address] [place] [address]Jhmwdwwblwh distribution width (RBC) [Ratio]13.7 %Normal 11.5-15.0UC Medical CenterComment on above:Performed By: #### [facility]INE [facility], 1987-10, , 36759-2 #### [facility] ([id number]) [address] [place] [address]Bhlzscmxpd (Bld) [Volume fraction]25.6 %Yyy16-71OfqJidlitPeterson Regional Medical CenterComment on above:Performed By: #### ADOLFO KING, 1989-10, , 71000-4 #### [facility] ([id number]) [address] [place] [address]Nzedahcgpc (Bld) [Mass/Vol]8.4 g/dLLow11.7-15.5PChildren's Hospital of ColumbusComment on above:Performed By: #### ADOLFO KING, 1989-10, , 51218-4 #### [facility] ([id number]) [address] [place] [address]Znhutlayxto (Bld) [#/Vol]1.8 10*3/uLNormal1.0-3.5PChildren's Hospital of ColumbusComment on above:Performed By: #### ADOLFO KING, 1989-10, , 82055-3 #### [facility] ([id number]) [address] [place] [address]Kxuusbwqumz/100 WBC (Bld)25.1 %NormalUC Medical Center Comment on above:Performed By: #### CBCADOLFO Nickerson, 1989-10, , 31409-1 #### [facility] ([id number]) [address] [place] [address]KCJ (RBC) [Entitic mass]30.7 syNwxdrk15-88MxvMakxxgPeterson Regional Medical CenterComment on above:Performed By: #### CBCLiya, [facility], 1987-[facility], , 42590-3 #### [facility] ([id number]) [address] [place] [address]PZFC (RBC) [Mass/Vol]32.8 g/dPMksebq56-03WibMgewukPeterson Regional Medical CenterComment on above:Performed By: #### [facility], 1987-10, , #### [facility] ([id number]) [address] [place] [address]YSK (RBC) [Entitic vol]93 dFXewhqk00-336BijTbjsft Fremont HospitalComment on above:Performed By: #### CBCLiya [facility], 1987-10, , 04230-0 #### [facility] ([id number]) [address] [place] [address]Fllbseyay (Bld) [#/Vol]0.5 10*3/uLNormal0-0.9UC Medical CenterComment on above:Performed By: #### CBCA, [facility], 1987-10, , 73318-4 #### [facility] ([id number]) [address] [place] [address]Bbwwtjxbt/100 WBC (Bld)7.8 %NormalUC Medical Center Comment on above:Performed By: #### CBCA, CMP, 1987-10, , 08282-8 #### [facility] ([id number]) [address] [place] [address]Dywcyweisbq/100 WBC (Bld)62.8 %NormalUC Medical Center Comment on above:Performed By: #### ADOLFO KING, 1989-10, , 56182-5 #### [facility] ([id number]) [address] [place] [address] 68[address]Zocqeitl mean volume (Bld) [Entitic vol]10.4 fLNormal7-12 UC Medical CenterComment on above:Performed By: #### CHRISTINE, [facility], 1987-10, , 63886-1 #### [facility] ([id number]) [address] [place] [address] 7[address]Lrnszgljd (Bld) [#/Vol]239 10*3/uDEhmqfz125-707SmcOgtdnlUC Medical CenterComment on above:Performed By: #### ADOLFO KING, 1989-10, , 40397-5 #### [facility] ([id number]) [address] [place] [address] 47[address]MGW COUNT2.74 X10E12/LLow3.80-5.20[facility] Comment on above:Performed By: #### ADOLFO KING, 1989-10, , 81744-4 #### [facility] ([id number]) [address] [place] [address]CYQ (Bld) [#/Vol]7.0 10*3/uLNormal4.0-11.0UC Medical CenterComment on above:Performed By: #### ADOLFO KING, 1989-10, , 59986-8 #### [facility] ([id number]) [address] [place] [address]FMU auto differentialon 52-98-7157Ymstkldtd (Bld) [#/Vol]0.0 10*3/uLAultman Hospital SystemBasophils/100 WBC (Bld)0.5 %[facility] Anne HospitalEosinophils (Bld) [#/Vol]0.3 10*3/uLMercy Health St. Anne HospitalEosinophils/100 WBC (Bld)3.8 %[facility] Anne HospitalErythrocyte distribution width (RBC) [Ratio]13.7 %11.5 - 15.0 %[facility] Anne HospitalHematocrit (Bld) [Volume fraction]25.6 %Low35 - 47 %[facility] Anne HospitalHemoglobin (Bld) [Mass/Vol]8.4 g/dLLow11.7 - 15.5 g/dLMercy Health St. Anne HospitalInterpretation and review of laboratory resultsAbnormCincinnati Shriners HospitalLymphocytes (Bld) [#/Vol]1.8 10*3/[facility]ont HospitalLymphocytes/100 WBC (Bld)25.1 %[facility] Anne HospitalMCH (RBC) [Entitic mass]30.7 pg27 - 34 [facility] InstituteMCHC (RBC) [Mass/Vol]32.8 g/dL32 - 36 g/dLMercy Health St. Anne HospitalMCV (RBC) [Entitic vol]93 fL80 - 100 [facility] HospitalMonocytes (Bld) [#/Vol]0.5 10*3/Be[facility]ont HospitalMonocytes/100 WBC (Bld)7.8 %[facility] Anne HospitalNeutrophils (Bld) [#/Vol]4.4 10*3/uLMercy Health St. Anne HospitalNeutrophils/100 WBC (Bld)62.8 % [facility] Anne HospitalPlatelet mean volume (Bld) [Entitic vol]10.4 fL7 - [address] Anne HospitalPlatelets (Bld) [#/Vol]239 10*3/[facility] RBC (Bld) [#/Vol]2.74 10*6/[facility] Butterworth HospitalWBC corrected for nucl RBC Auto (Bld) [#/Vol]7.0[facility] COMPREHENSIVE METABOLIC PANELon 02-45-9088Uitribo [Mass/Vol]2.4 g/dLLow3.2-5.3 UC Medical CenterComment on above:Performed By: #### ADOLFO KING, 1989-10, , 62754-1 #### [facility] ([id number]) [address] [place] [address], [place] [address]DVT [Catalytic activity/Vol]40 U/YWxaila94-758KslQqfbftPeterson Regional Medical CenterComment on above:Performed By: #### ADOLFO KING, 1987-10, , 94389-2 #### [facility] ([id number]) [address] [place] [address], [place] [address]YYT [Catalytic activity/Vol]15 U/LNormal0-31PChildren's Hospital of ColumbusComment on above:Performed By: #### ADOLFO KING, 1989-10, , 46335-4 #### [facility] ([id number]) [address] [place] [address] 537[address]Hybgb gap [Moles/Vol]9 mmol/LNormal5-15ProPeterson Regional Medical CenterComment on above:Performed By: #### ADOLFO KING, 1987-10, , 71111-3 #### [facility] ([id number]) [address] [place] [address] 180[address]AUZ [Catalytic activity/Vol]17 U/LNormal0-41ProPeterson Regional Medical CenterComment on above:Performed By: #### ADOLFO KING, 1987-10, , 47788-5 #### [facility] ([id number]) [address] [place] [address] 85[address]Aprxkkpky [Mass/Vol]0.6 mg/dLNormal0.3-1.2ProMedSutter Amador HospitalComment on above:Performed By: #### ADOLFO KING, 1987-10, , 55278-6 #### [facility] ([id number]) [address] [place] [address], [place] [address]Fxeplnk [Mass/Vol]8.7 mg/dLNormal8.5-10.5PChildren's Hospital of ColumbusComment on above:Performed By: #### ADOLFO KING, 1987-10, , #### [facility] ([id number]) [address] [place] [address]Jtrjhnzh [Moles/Vol]105 mmol/ZHzuodz26-233CfbFwiykrPeterson Regional Medical CenterComment on above:Performed By: #### ADOLFO KING, 1987-10, , #### [facility] ([id number]) [address] [place] [address]MU9 [Moles/Vol]21 mmol/RKwy98-32VxpOuhbiqChildren's Hospital of Columbus Comment on above:Performed By: #### ADOLFO KING, 1987-10, , #### [facility] ([id number]) [address] [place] [address] 044[address]Lkqaihydjs [Mass/Vol]1.22 mg/dLHigh0.40-1.00ProPeterson Regional Medical CenterComment on above:Result Comment: METHOD TRACEABLE TO IDMS STANDARD Performed By: #### ADOLFO KING, 1987-10, , 61074-5 #### [facility] ([id number]) [address] [place] [address] 70642LSG/1.73 sq M.predicted among non-blacks MDRD (S/P/Bld) [Vol rate/Area]52 mL/min/{1.73_m2}Low>59ProPeterson Regional Medical CenterComment on above: Result Comment: Reported eGFR is based on the CKD-EPI 2020 equation that does not use a race coefficient.Performed By: #### ADOLFO KING, 1987-10, , 4 #### [facility] ([id number]) [address] [place] [address]Mrxalmo [Mass/Vol]297 mg/aFFcyn09-90RycJdszknUC Medical Center Comment on above:Performed By: #### ADOLFO KIGN, 1989-10, , 62541-9 #### [facility] ([id number]) [address] [place] [address] 949[address]Uokjzvdng [Moles/Vol]4.7 mmol/LNormal3.5-5.0ProPeterson Regional Medical CenterComment on above:Performed By: #### [facility], 1987-10, , 21795-6 #### [facility] ([id number]) [address] [place] [address] 956[address]Gmacrec [Mass/Vol]6.3 g/dLNormal6.0-8.0ProPeterson Regional Medical CenterComment on above:Performed By: #### ADOLFO KING, 1987-10, , 66777-5 #### [facility] ([id number]) [address] [place] [address] 69[address]Hauruo [Moles/Vol]135 mmol/EHspivy353-943NsdTjizvc [facility]ont HospitalComment on above:Performed By: #### [facility], 1987-10, , 69024-4 #### [facility] ([id number]) [address] [place] [address] 922[address]Otzw nitrogen [Mass/Vol]43 mg/dLHigh5-23ProPeterson Regional Medical CenterComment on above:Performed By: #### ADOLFO KING, 1989-10, , 47033-9 #### [facility] ([id number]) [address] [place] [address] 427[address]Kxmrnetzeraws metabolic panelon 03-11-8562Kdjqapb [Mass/Vol]2.4 g/dLLow3.2 - 5.3 g/dLProBucyrus Community Hospital SystemALP [Catalytic activity/Vol]40 U/L 39 - 130 U/LProMedica Health SystemALT No additional P-5'-P [Catalytic activity/Vol]15 U/L0 - 31 U/[facility] SystemAnion gap [Moles/Vol]9 mmol/L5 - 15 mmol/[facility] SystemAST [Catalytic activity/Vol]17 U/L0 - 41 U/[facility] Shriners HospitalBilirubin [Mass/Vol]0.6 mg/dL0.3 - 1.2 mg/dL [facility] Anne HospitalCalcium [Mass/Vol]8.7 mg/dL8.5 - 10.5 mg/dLMercy Health St. Anne HospitalChloride [Moles/Vol]105 mmol/L98 - 109 mmol/[facility] SystemCO2 [Moles/Vol]21 mmol/LLow22 - 32 mmol/[facility]riners HospitalCreatinine [Mass/Vol]1.22 mg/dLHigh0.40 - 1.00 mg/dLMercy Health St. Anne HospitalComment on above:METHOD TRACEABLE TO [facility] STANDARDeGFR (CKD-EPI)non-race mgbhrywat92OzoVirginia Hospital CenterComment on above: Reported eGFR is based on the CKD-EPI 2020 equation that does not use a race coefficient. Glucose [Mass/Vol]297 mg/hFTzbi78 - 99 mg/dLMercy Health St. Anne Hospital Interpretation and review of laboratory resultsAbnoWakeMed North Hospital Potassium [Moles/Vol]4.7 mmol/L3.5 - 5.0 mmol/[facility] SystemProtein [Mass/Vol]6.3 g/dL6.0 - 8.0 g/dLNovant Health Clemmons Medical Centerodium [Moles/Vol]135 mmol/L134 - 146 mmol/[facility]riners HospitalUrea nitrogen [Mass/Vol]43 mg/dL High5 - 23 mg/dLMercy Health St. Anne HospitalGlucose Glucometer (BldC) [Mass/Vol]on [id number] [Mass/Vol]429 mg/dLCritically high65 - 99 mg/dLMercy Health St. Anne HospitalInterpretation and review of laboratory resultsAbnoHospital of the University of PennsylvaniaGlucose [Mass/Vol]429 mg/dLCritically high 65-99UC [facility] CenterGlucose [Mass/Vol]326 mg/fUHaae67 - 99 mg/dL [facility] HospitalInterpretation and review of laboratory resultsAbnormal [facility] for ChildrenGlucose [Mass/Vol]326 mg/dLHigh 65-99[facility] CenterGlucose [Mass/Vol]343 mg/lLOxxq53 - 99 mg/dL ProMMetroHealth Main Campus Medical CenterInterpretation and review of laboratory resultsAbnormal [facility] SystemMAGNESIUMon [id number] [Mass/Vol]1.8 mg/dLNormal1.8-2.6UC Medical CenterComment on above: Performed By: #### CBCA, CMP, 1987-, 45179-6, 77086-4 #### [facility] ([id number]) [address] [place] [address], [place], [place] [address]Pjolvufrcwg [id number] [Mass/Vol]1.8 mg/dL1.8 - 2.6 mg/dLMercy Health St. Anne HospitalNo Panel Informationon [id number] Hospital CompanyBacteria identified Aer cx Nom (Wound)on [id number] and review of laboratory resultsAbnoGrand View Health SystemMicroscopic observation Gram stain Nom (Unsp spec)>25 WHITE BLOOD CELLS/LPPremier Health Upper Valley Medical Center SystemMicroscopic observation Gram stain Nom (Unsp spec)0 to 1 SQUAMOUS EPITHELIAL CELLS/LPPremier Health [facility] SystemMicroscopic observation Gram stain Nom (Unsp spec)PositiveProMediwv Health SystemMicroscopic observation Gram stain Nom (Unsp spec)NegativeProMediGuernsey Memorial Hospital SystemMicroscopic observation Gram stain Nom (Unsp spec)RARE YEASTProEncompass Health Rehabilitation Hospital [facility] Montgomery Health SystemService comment (Unsp spec) [Interp]SPECIMEN 2PLafourche, St. Charles and Terrebon[place] parishes Health SystemService comment (Unsp spec) [Interp]MANY ACHROMOBACTER SPECIESAbnoGrand View Health SystemService comment (Unsp spec) [Interp]ALONG WITH MANY NORMAL SKIN FLORAAscension Saint Clare's Hospital SystemCBC AND AUTO DIFFon 42-01-7135DROWBSRY BASOPHIL0.0 X10E9/LNormal0.0-0.2PChildren's Hospital of ColumbusComment on above:Performed By: #### CBCA, [facility], 1987-10, , 58944-1 #### [facility] ([id number]) [address] [place] [address] 20469BQJUUJAF NEUTROPHIL3.8 X10E9/LNormal1.5-6.6UC Medical CenterComment on above:Performed By: #### CBCLiya, [facility], 1987-10, , 72159-6 #### [facility] ([id number]) [address] [place] [address] 90590Srxccigvx/100 WBC (Bld)0.6 %NormalUC Medical Center Comment on above:Performed By: #### CBCLiya [facility], 1987-10, , 90136-7 #### [facility] ([id number]) [address] [place] [address] 72248Nxbpowzsvnc (Bld) [#/Vol]0.2 10*3/uLNormal0.0-0.4ProPeterson Regional Medical CenterComment on above:Performed By: #### CHRISTINE [facility], 1987-10, , 16750-7 #### [facility] ([id number]) [address] [place] [address] 27545Qneezlfjnoe/100 WBC (Bld)3.4 %NormalUC Medical Center Comment on above:Performed By: #### CBCA, [facility], 1987-10, , 95450-5 #### [facility] ([id number]) [address] [place] [address] 12866Nfgnzzzpfqb distribution width (RBC) [Ratio]13.7 %Normal 11.5-15.0UC Medical CenterComment on above:Performed By: #### CBCAADOLFO, 1987-10, , 99528-2 #### [facility] ([id number]) [address], [place] [address]Zcuxjtlmri (Bld) [Volume fraction]25.4 %Ozw44-45VxvJdoakeUC Medical CenterComment on above:Performed By: #### CHRISTINE, ADOLFO, 1987-10, , 51542-8 #### [facility] ([id number]) [address] [place] [address] 91737Htuetjllbp (Bld) [Mass/Vol]8.4 g/dLLow11.7-15.5PChildren's Hospital of ColumbusComment on above:Performed By: #### CHRISTINE [facility], 1987-10, , 40691-0 #### [facility] ([id number]) [address] [place] [address] 06096Rwpackcldkg (Bld) [#/Vol]1.8 10*3/uLNormal1.0-3.5PChildren's Hospital of ColumbusComment on above:Performed By: #### CHRISTINE [facility], 1987-10, , 92170-2 #### [facility] ([id number]) [address] [place] [address] 39240Ocvcqrbniie/100 WBC (Bld)28.2 %NormalUC Medical Center Comment on above:Performed By: #### CBCLiya [facility], 1987-10, , #### [facility] ([id number]) [address] [place] [address] 72082CPQ (RBC) [Entitic mass]30.9 dnQwyupt32-19EngMoxganUC Medical CenterComment on above:Performed By: #### CBCA, CMP, 1987-10, , 16007-4 #### [facility] ([id number]) [address] [place] [address] 31832UCPH (RBC) [Mass/Vol]33.1 g/xBZuuxwm54-66JazRqavspUC Medical CenterComment on above:Performed By: #### CBCLiya, [facility], 1987-10, , 19056-2 #### [facility] ([id number]) [address] [place] [address] 30439QWQ (RBC) [Entitic vol]93 kFUohvze84-127DetOsdbdz Fremont HospitalComment on above:Performed By: #### CBCLiya, [facility], 1987-10, , 88824-7 #### [facility] ([id number]) [address] [place] [address] 08732Yzhvnidik (Bld) [#/Vol]0.6 10*3/uLNormal0-0.9UC Medical CenterComment on above:Performed By: #### CHRISTINE, ADOLFO, 1987-10, , 25644-4 #### [facility] ([id number]) [address] [place] [address] 07711Iilavhhzi/100 WBC (Bld)8.5 %[facility] Comment on above:Performed By: #### CBCLyia, [facility], 1987-10, , 59905-3 #### [facility] ([id number]) [address] [place] [address] 16295Aekkmjopqxd/100 WBC (Bld)59.3 %[facility] Comment on above:Performed By: #### CBCA, [facility], 1987-10, , 76414-9 #### [facility] ([id number]) [address] [place] [address] 44842Tdeetocg mean volume (Bld) [Entitic vol]10.1 fLNormal7-12 ProMSan Gabriel Valley Medical CenterComment on above:Performed By: #### CBCA, CMP, 1987-10, , 30905-9 #### [facility] ([id number]) [address] [place] [address] [place] [address]Ljefzhtyz (Bld) [#/Vol]232 10*3/oZGtklej020-501McyQuilxb [facility]ont HospitalComment on above:Performed By: #### CHRISTINE [facility], 1987-10, , 86694-2 #### [facility] ([id number]) [address], [place] [address]ZXE COUNT2.72 X10E12/LLow3.80-5.20[facility] Comment on above:Performed By: #### CHRISTINE [facility], 1987-10, , 29118-8 #### [facility] ([id number]) [address] [place] [address] 73854NKU (Bld) [#/Vol]6.5 10*3/uLNormal4.0-11.0UC Medical CenterComment on above:Performed By: #### CHRISTINE [facility], 1987-10, , 64367-2 #### [facility] ([id number]) [address] [place] [address] 02595BJK auto differentialon 92-44-4894Fmtssrlcs (Bld) [#/Vol]0.0 10*3/uLProMedica Health SystemBasophils/100 WBC (Bld)0.6 %ProMedica Health SystemEosinophils (Bld) [#/Vol]0.2 10*3/uLProMedica Health SystemEosinophils/100 WBC (Bld)3.4 %ProMedica Health SystemErythrocyte distribution width (RBC) [Ratio]13.7 %11.5 - 15.0 %ProMedica Health SystemHematocrit (Bld) [Volume fraction]25.4 %Low35 - 47 %ProMedica Health SystemHemoglobin (Bld) [Mass/Vol]8.4 g/dLLow11.7 - 15.5 g/dLMercy Health St. Anne HospitalInterpretation and review of laboratory resultsAbnormalAultman Hospital SystemLymphocytes (Bld) [#/Vol]1.8 10*3/[facility]umont HospitalLymphocytes/100 WBC (Bld)28.2 %[facility] HospitalH (RBC) [Entitic mass]30.9 pg27 - 34 pgPRegency Hospital CompanyMCHC (RBC) [Mass/Vol]33.1 g/dL32 - 36 g/dLMercy Health St. Anne HospitalMCV (RBC) [Entitic vol]93 fL80 - 100 fLPRegency Hospital CompanyMonocytes (Bld) [#/Vol]0.6 10*3/uLMercy Health St. Anne HospitalMonocytes/100 WBC (Bld)8.5 %[facility] Anne HospitalNeutrophils (Bld) [#/Vol]3.8 10*3/[facility]ont HospitalNeutrophils/100 WBC (Bld)59.3 % [facility] Anne HospitalPlatelet mean volume (Bld) [Entitic vol]10.1 fL7 - [address] Anne HospitalPlatelets (Bld) [#/Vol]232 10*3/[facility] RBC (Bld) [#/Vol]2.72 10*6/LowMercy Health St. Anne HospitalWBC corrected for nucl RBC Auto (Bld) [#/Vol]6.5PExcela Health COMPREHENSIVE METABOLIC PANELon 55-25-3228Igyztlm [Mass/Vol]2.5 g/dLLow3.2-5.3 UC Medical CenterComment on above:Performed By: #### ADOLFO KING, 1987-10, , 17218-2 #### [facility] ([id number]) [address] [place] [address] 27198HKN [Catalytic activity/Vol]38 U/AZup80-523MjdOtgzplUC Medical CenterComment on above:Performed By: #### ADOLFO KING, 1987-10, , 25722-0 #### [facility] ([id number]) [address] [place] [address] 87493DER [Catalytic activity/Vol]13 U/LNormal0-31PChildren's Hospital of ColumbusComment on above:Performed By: #### ADOLFO KING, 1987-10, , 85812-3 #### [facility] ([id number]) [address] [place] [address] 20471Veash gap [Moles/Vol]10 mmol/LNormal5-15ProPeterson Regional Medical CenterComment on above:Performed By: #### ADOLFO KING, 1987-10, , 03781-7 #### [facility] ([id number]) [address] [place] [address] 46308ZSF [Catalytic activity/Vol]15 U/LNormal0-41ProPeterson Regional Medical CenterComment on above:Performed By: #### ADOLFO KING, 1987-10, , 78447-0 #### [facility] ([id number]) [address] [place] [address] 99911Hbgcwnejn [Mass/Vol]0.5 mg/dLNormal0.3-1.2PChildren's Hospital of ColumbusComment on above:Performed By: #### ADOLFO KING, 1987-10, , 45624-9 #### [facility] ([id number]) [address] [place] [address] 57839Zeexqbn [Mass/Vol]8.5 mg/dLNormal8.5-10.5PChildren's Hospital of ColumbusComment on above:Performed By: #### ADOLFO KING, 1987-10, , 61186-9 #### [facility] ([id number]) [address] [place] [address] 29941Zuizxzll [Moles/Vol]102 mmol/KQekfad20-519HeaSrrwozPeterson Regional Medical CenterComment on above:Performed By: #### ADOLFO KING, 1987-10, , 25112-4 #### [facility] ([id number]) [address] [place] [address] 58472WK2 [Moles/Vol]21 mmol/BBgd84-12MiaPktbojChildren's Hospital of Columbus Comment on above:Performed By: #### ADOLFO KING, 1987-10, , 60544-9 #### [facility] ([id number]) [address] [place] [address] 25105Nvoehjmmqh [Mass/Vol]1.48 mg/dLHigh0.40-1.00ProPeterson Regional Medical CenterComment on above:Result Comment: METHOD TRACEABLE TO IDMS STANDARD Performed By: #### ADOLFO KING, 1987-10, , 98538-3 #### [facility] ([id number]) [address] [place] [address] 12582KPM/1.73 sq M.predicted among non-blacks MDRD (S/P/Bld) [Vol rate/Area]42 mL/min/{1.73_m2}Low>59ProPeterson Regional Medical CenterComment on above: Result Comment: Reported eGFR is based on the CKD-EPI 2020 equation that does not use a race coefficient.Performed By: #### ADOLFO KING, 1987-10, , 16064- 4 #### [facility] ([id number]) [address] [place] [address] 03386Rqiplii [Mass/Vol]344 mg/lKAwrj54-02ZszDkgiygUC Medical Center Comment on above:Performed By: #### ADOLFO KING, 1987-10, , 97055-5 #### [facility] ([id number]) [address] [place] [address] 92207Mktlbystf [Moles/Vol]4.8 mmol/LNormal3.5-5.0ProPeterson Regional Medical CenterComment on above:Performed By: #### ADOLFO KING, 1987-10, , 01768-2 #### [facility] ([id number]) [address], [place] [address]Wwqthkx [Mass/Vol]6.4 g/dLNormal6.0-8.0ProPeterson Regional Medical CenterComment on above:Performed By: #### ADOLFO KING, 1987-10, , 79079-7 #### [facility] ([id number]) [address] [place] [address] 97397Zyvozv [Moles/Vol]133 mmol/YWoq694-834LxkBsxwzxPeterson Regional Medical CenterComment on above:Performed By: #### ADOLFO KING, 1987-10, , 72537-0 #### [facility] ([id number]) [address] [place] [address] 30887Phhs nitrogen [Mass/Vol]46 mg/dLHigh5-23ProPeterson Regional Medical CenterComment on above:Performed By: #### CHRISTINE [facility], 1987-10, , 36390-0 #### [facility] ([id number]) [address] [place] [address] 15665Jwijutkrcvywb metabolic panelon 91-96-7336Tahlnwk [Mass/Vol]2.5 g/dLLow3.2 - 5.3 g/dLProMedica Health SystemALP [Catalytic activity/Vol]38 U/L Low39 - 130 U/LProMedica Health SystemALT No additional P-5'-P [Catalytic activity/Vol]13 U/L0 - 31 U/LProMedica Health SystemAnion gap [Moles/Vol]10 mmol/L5 - 15 mmol/LProMedica Health SystemAST [Catalytic activity/Vol]15 U/L0 - 41 U/LProMedica Health SystemBilirubin [Mass/Vol]0.5 mg/dL0.3 - 1.2 mg/dL ProMedica Health SystemCalcium [Mass/Vol]8.5 mg/dL8.5 - 10.5 mg/dLProMedica Health SystemChloride [Moles/Vol]102 mmol/L98 - 109 mmol/LProMedica Health SystemCO2 [Moles/Vol]21 mmol/LLow22 - 32 mmol/LPrGrand Lake Joint Township District Memorial Hospital SystemCreatinine [Mass/Vol]1.48 mg/dLHigh0.40 - 1.00 mg/dLMercy Health St. Anne HospitalComment on above:METHOD TRACEABLE TO IDND STANDARDeGFR (CKD-EPI)non-race xuilpqfmv02Yui- PINThe Rehabilitation Institute of St. LouisComment on above: Reported eGFR is based on the CKD-EPI 2020 equation that does not use a race coefficient. Glucose [Mass/Vol]344 mg/zOHmxq73 - 99 mg/dLMercy Health St. Anne Hospital Interpretation and review of laboratory resultsAbHelen Hayes Hospital Potassium [Moles/Vol]4.8 mmol/L3.5 - 5.0 mmol/LProMedica Health SystemProtein [Mass/Vol]6.4 g/dL6.0 - 8.0 g/dLNovant Health Clemmons Medical Centerodium [Moles/Vol]133 mmol/SElq905 - 146 mmol/[facility] SystemUrea nitrogen [Mass/Vol]46 mg/dL High5 - 23 mg/dLMercy Health St. Anne HospitalGlucose Glucometer (BldC) [Mass/Vol]on 02-18-2564Zueeghb [Mass/Vol]343 mg/aMHjbs88-18VoeKcrftyUC Medical CenterGlucose [Mass/Vol]339 mg/tBUrxd21 - 99 mg/dLMercy Health St. Anne HospitalInterpretation and review of laboratory resultsAbChildren's Hospital of PhiladelphiaGlucose [Mass/Vol]339 mg/fTYzma26-20XthItzhcoUC Medical CenterGlucose [Mass/Vol]275 mg/tLYbtx98-64HvhVglzdfMercy Health St. Anne HospitalInterpretation and review of laboratory resultsAbChildren's Hospital of Philadelphia MAGNESIUMon 10-34-5943Hcdrkkkjx [Mass/Vol]1.9 mg/dLNormal1.8-2.6UC Medical CenterComment on above:Performed By: #### CHRISTINE, ADOLFO, 1989-, 47898-9, 65314-4 #### [facility] ([id number]) [address] [place] [address], [place], [place] [address]Bahsptcydjz 91-49-4646Nqbncdvte [Mass/Vol]1.9 mg/dL1.8 - 2.6 mg/dLMercy Health St. Anne HospitalNo Panel Informationon 32-81-3510JhdTawthbRegency Hospital CompanyBacteria identified Aer cx Nom (Bld)on 16-96-7077Azseqec comment (Unsp spec) [Interp]NO GROWTH 5 DAYSProAvita Health System Ontario HospitalProAvita Health System Ontario HospitalCBC AND AUTO DIFFon 98-74-5961DWJNJDRL BASOPHIL0.0 X10E9/LNormal0.0-0.2PChildren's Hospital of ColumbusComment on above:Performed By: #### ADOLFO KING, 1987-10, , 85665-9 #### [facility] ([id number]) [address] [place] [address] 70757UDHGRKTH NEUTROPHIL4.1 X10E9/LNormal1.5-6.6ProPeterson Regional Medical CenterComment on above:Performed By: #### ADOLFO KING, 1987-10, , 27182-0 #### [facility] ([id number]) [address] [place] [address] 60262Rfhfcesim/100 WBC (Bld)0.5 %NormalUC Medical Center Comment on above:Performed By: #### ADOLFO KING, 1987-10, , 12697-9 #### [facility] ([id number]) [address] [place] [address] 39678Kjwfxcethed (Bld) [#/Vol]0.3 10*3/uLNormal0.0-0.4UC Medical CenterComment on above:Performed By: #### ADOLFO KING, 1987-10, , 69768-3 #### [facility] ([id number]) [address] [place] [address] 72409Tqldubqzufi/100 WBC (Bld)4.5 %[facility] Comment on above:Performed By: #### ADOLFO KING, 1987-10, , 11903-2 #### [facility] ([id number]) [address] [place] [address] 51348Iuisvukotuh distribution width (RBC) [Ratio]13.5 %Normal 11.5-15.0UC Medical CenterComment on above:Performed By: #### CHRISTINE, [facility], 1987-10, , 18030-4 #### [facility] ([id number]) [address] [place] [address] 16883Hspzcczter (Bld) [Volume fraction]26.3 %Eqa72-97MoiHmgfocPeterson Regional Medical CenterComment on above:Performed By: #### CHRISTINE [facility], 1987-10, , 59251-6 #### [facility] ([id number]) [address] [place] [address] 37886Jhitsjvbzo (Bld) [Mass/Vol]8.8 g/dLLow11.7-15.5PChildren's Hospital of ColumbusComment on above:Performed By: #### CHRISTINE [facility], 1987-10, , 81005-0 #### [facility] ([id number]) [address] [place] [address] 33823Kbzowrxmfml (Bld) [#/Vol]1.7 10*3/uLNormal1.0-3.5PChildren's Hospital of ColumbusComment on above:Performed By: #### CBCA, [facility], 1987-10, , 91307-7 #### [facility] ([id number]) [address] [place] [address] 55101Grzbcbbrgvr/100 WBC (Bld)25.2 %NormalProPeterson Regional Medical Center Comment on above:Performed By: #### CBCA, CMP, 1987-10, , 20292-7 #### [facility] ([id number]) [address], [place] [address]BYO (RBC) [Entitic mass]31.2 lgNqrltt95-37GniMgjybtUC Medical CenterComment on above:Performed By: #### ADOLFO KING, 1987-10, , #### [facility] ([id number]) [address] [place] [address] 15849UHVJ (RBC) [Mass/Vol]33.3 g/oIWgiziu37-48QvfRqzxkfPeterson Regional Medical CenterComment on above:Performed By: #### CHRISTINE [facility], 1987-10, , #### [facility] ([id number]) [address] [place] [address] 10231VQP (RBC) [Entitic vol]94 nUKfdmqh86-630OzzRmghzx [facility] HospitalComment on above:Performed By: #### CHRISTINE [facility], 1987-10, , #### [facility] ([id number]) [address] [place] [address] 45047Vovitbhkg (Bld) [#/Vol]0.5 10*3/uLNormal0-0.9UC Medical CenterComment on above:Performed By: #### ADOLFO KING, 1987-10, , #### [facility] ([id number]) [address] [place] [address] 94937Wyoltgtct/100 WBC (Bld)7.3 %[facility] Comment on above:Performed By: #### CBCADOLFO Nickerson, 1987-10, , 31755-9 #### [facility] ([id number]) [address] [place] [address] 14594Ykzrxerljfr/100 WBC (Bld)62.5 %[facility] Comment on above:Performed By: #### CBCADOLFO Nickerson, 1987-10, , 10399-3 #### [facility] ([id number]) [address] [place] [address] 40904Bhfvdjqq mean volume (Bld) [Entitic vol]10.4 fLNormal7-12 [facility] Medical CenterComment on above:Performed By: #### CHRISTINE [facility], 1987-10, , 85416-4 #### [facility] ([id number]) [address] [place] [address] 18178Rsdnvdjtw (Bld) [#/Vol]240 10*3/uUXgpqzw067-726AqvQwmpxi [facility] HospitalComment on above:Performed By: #### CHRISTINE [facility], 1987-10, , 08234-5 #### [facility] ([id number]) [address] [place] [address] 45924BTC COUNT2.81 X10E12/LLow3.80-5.20[facility] Comment on above:Performed By: #### [facility]INE [facility], 1987-10, , 41732-0 #### [facility] ([id number]) [address] [place] [address] 89054KFB (Bld) [#/Vol]6.6 10*3/uLNormal4.0-11.0UC Medical CenterComment on above:Performed By: #### ADOLFO KING, 1987-10, , 33855-4 #### [facility] ([id number]) [address] [place] [address] 53873GWM auto differentialon 46-93-3349Nuoaoyrby (Bld) [#/Vol]0.0 10*3/uLProMedica Health SystemBasophils/100 WBC (Bld)0.5 %[facility] SystemEosinophils (Bld) [#/Vol]0.3 10*3/uLProMedica Health SystemEosinophils/100 WBC (Bld)4.5 %[facility]. Anne HospitalErythrocyte distribution width (RBC) [Ratio]13.5 %11.5 - 15.0 %[facility] Anne HospitalHematocrit (Bld) [Volume fraction]26.3 %Low35 - 47 %[facility] Anne HospitalHemoglobin (Bld) [Mass/Vol]8.8 g/dLLow11.7 - 15.5 g/dLMercy Health St. Anne HospitalInterpretation and review of laboratory resultsAbnormCincinnati Shriners HospitalLymphocytes (Bld) [#/Vol]1.7 10*3/[facility] HospitalLymphocytes/100 WBC (Bld)25.2 %[facility] Anne HospitalMCH (RBC) [Entitic mass]31.2 pg27 - 34 [facility] InstituteMCHC (RBC) [Mass/Vol]33.3 g/dL32 - 36 g/dLMercy Health St. Anne HospitalMCV (RBC) [Entitic vol]94 fL80 - 100 [facility] HospitalMonocytes (Bld) [#/Vol]0.5 10*3/[facility] HospitalMonocytes/100 WBC (Bld)7.3 %[facility] Anne HospitalNeutrophils (Bld) [#/Vol]4.1 10*3/[facility]ont HospitalNeutrophils/100 WBC (Bld)62.5 % [facility] Anne HospitalPlatelet mean volume (Bld) [Entitic vol]10.4 fL7 - [address] Anne HospitalPlatelets (Bld) [#/Vol]240 10*3/[facility] RBC (Bld) [#/Vol]2.81 10*6/[facility] Butter[facility] HospitalWBC corrected for nucl RBC Auto (Bld) [#/Vol]6.6[facility] COMPREHENSIVE METABOLIC PANELon 29-07-0579Dduupqd [Mass/Vol]2.6 g/dLLow3.2-5.3 [facility] Medical CenterComment on above:Performed By: #### CBCA, CMP, 1987-, 61759-0, 63289-7 #### [facility] ([id number]) [address] [place] [address], [place] [address]GRP [Catalytic activity/Vol]39 U/AGvloos18-413EwwVsidufPeterson Regional Medical CenterComment on above:Performed By: #### ADOLFO KING, 1987-10, , 25401-8 #### [facility] ([id number]) [address] [place] [address], [place] [address]ZQF [Catalytic activity/Vol]15 U/LNormal0-31PChildren's Hospital of ColumbusComment on above:Performed By: #### ADOLFO KING, 1987-10, , 95342-7 #### [facility] ([id number]) [address] [place] [address] 14064Orzos gap [Moles/Vol]8 mmol/LNormal5-15ProPeterson Regional Medical CenterComment on above:Performed By: #### ADOLFO KING, 1987-10, , 20482-8 #### [facility] ([id number]) [address] [place] [address] 30221ORW [Catalytic activity/Vol]18 U/LNormal0-41ProPeterson Regional Medical CenterComment on above:Performed By: #### ADOLFO KING, 1987-10, , 30109-8 #### [facility] ([id number]) [address] [place] [address] 52249Pmghwwbpk [Mass/Vol]0.4 mg/dLNormal0.3-1.2PChildren's Hospital of ColumbusComment on above:Performed By: #### ADOLFO KING, 1987-10, , 71806-5 #### [facility] ([id number]) [address] [place] [address] 66136Dmxdnno [Mass/Vol]8.4 mg/dLLow8.5-10.5PChildren's Hospital Colorado HospitalComment on above:Performed By: #### ADOLFO KING, 1989-10, , 41782-4 #### [facility] ([id number]) [address] [place] [address] 31978Yeaexllw [Moles/Vol]107 mmol/PWovvdb34-675AyzDfcfqgUC Medical CenterComment on above:Performed By: #### ADOLFO KING, 1989-10, , 66622-5 #### [facility] ([id number]) [address] [place] [address] 30163GK6 [Moles/Vol]22 mmol/HMzsqih67-78OjmZrdcveChildren's Hospital of Columbus Comment on above:Performed By: #### ADOLFO KING, 1989-10, , 30780-0 #### [facility] ([id number]) [address] [place] [address] 06701Aztnkyigkd [Mass/Vol]1.25 mg/dLHigh0.40-1.00UC Medical CenterComment on above:Result Comment: METHOD TRACEABLE TO IDMS STANDARD Performed By: #### ADOLFO KING, 1989-10, , 13319-0 #### [facility] ([id number]) [address] [place] [address] 53118RYQ/1.73 sq M.predicted among non-blacks MDRD (S/P/Bld) [Vol rate/Area]51 mL/min/{1.73_m2}Low>59ProPeterson Regional Medical CenterComment on above: Result Comment: Reported eGFR is based on the CKD-EPI 2020 equation that does not use a race coefficient.Performed By: #### ADOLFO KING, 1989-10, , 05214- 4 #### [facility] ([id number]) [address] [place] [address] 55117Nyciqes [Mass/Vol]257 mg/pJMoyh36-61AfuNnhvwhUC Medical Center Comment on above:Performed By: #### ADOLFO KING, 1989-10, , 15888-1 #### [facility] ([id number]) [address] [place] [address] 14902Cbbunajhm [Moles/Vol]4.5 mmol/LNormal3.5-5.0ProPeterson Regional Medical CenterComment on above:Performed By: #### ADOLFO KING, 1989-10, , 84871-7 #### [facility] ([id number]) [address] [place] [address] 88608Iaojeev [Mass/Vol]6.3 g/dLNormal6.0-8.0ProPeterson Regional Medical CenterComment on above:Performed By: #### ADOLFO KING, 1989-10, , 15150-5 #### [facility] ([id number]) [address] [place] [address] 54930Vugkvd [Moles/Vol]137 mmol/FRyhnuj864-726YtrJrxlcn Fremont HospitalComment on above:Performed By: #### ADOLFO KING, 1989-10, , 06152-9 #### [facility] ([id number]) [address] [place] [address] 64609Dssd nitrogen [Mass/Vol]39 mg/dLHigh5-23ProPeterson Regional Medical CenterComment on above:Performed By: #### ADOLFO KING, 1989-10, , 96929-6 #### [facility] ([id number]) [address] [place] [address] 14814Vezvtasmsoywc metabolic panelon 63-68-9886Uczjroa [Mass/Vol]2.6 g/dLLow3.2 - 5.3 g/dLProBucyrus Community Hospital SystemALP [Catalytic activity/Vol]39 U/L 39 - 130 U/LProMedica Health SystemALT No additional P-5'-P [Catalytic activity/Vol]15 U/L0 - 31 U/LProMedica Health SystemAnion gap [Moles/Vol]8 mmol/L5 - 15 mmol/[facility] SystemAST [Catalytic activity/Vol]18 U/L0 - 41 U/[facility] SystemBilirubin [Mass/Vol]0.4 mg/dL0.3 - 1.2 mg/dL ProMMunicipal Hospital and Granite Manor SystemCalcium [Mass/Vol]8.4 mg/dLLow8.5 - 10.5 mg/dLProAvita Health System Ontario HospitalChloride [Moles/Vol]107 mmol/L98 - 109 mmol/[place] [facility] SystemCO2 [Moles/Vol]22 mmol/L22 - 32 mmol/[facility] SystemCreatinine [Mass/Vol]1.25 mg/dLHigh0.40 - 1.00 mg/dLMercy Health St. Anne HospitalComment on above:METHOD TRACEABLE TO [facility] STANDARDeGFR (CKD-EPI)non-race zfczaitha14Upm- PINFPRegency Hospital CompanyComment on above: Reported eGFR is based on the CKD-EPI 2020 equation that does not use a race coefficient. Glucose [Mass/Vol]257 mg/kYZeqz09 - 99 mg/dLMercy Health St. [facility] Hospital Interpretation and review of laboratory resultsAbnoWakeMed North Hospital Potassium [Moles/Vol]4.5 mmol/L3.5 - 5.0 mmol/[facility] SystemProtein [Mass/Vol]6.3 g/dL6.0 - 8.0 g/dLNovant Health Clemmons Medical Centerodium [Moles/Vol]137 mmol/L134 - 146 mmol/[facility] SystemUrea nitrogen [Mass/Vol]39 mg/dL High5 - 23 mg/dLMercy Health St. Anne HospitalGlucose Glucometer (BldC) [Mass/Vol]on 85-45-2349Wpzdvxd [Mass/Vol]405 mg/dLCritically high65 - 99 mg/dLMercy Health St. Anne HospitalInterpretation and review of laboratory resultsAbnoHospital of the University of PennsylvaniaGlucose [Mass/Vol]405 mg/dLCritically high 65-99UC Medical CenterGlucose [Mass/Vol]407 mg/dLCritically high65 - 99 mg/dLMercy Health St. Anne HospitalInterpretation and review of laboratory results AbnormalProAvita Health System Ontario HospitalProMedica Health SystemGlucose [Mass/Vol]407 mg/dLCritically oltn70-83OhbYvkzqyPeterson Regional Medical CenterGlucose [Mass/Vol]317 mg/dL High65 - 99 mg/dLProBucyrus Community Hospital SystemGlucose [Mass/Vol]322 mg/hJBdzt33 - 99 mg/dLMercy Health St. Anne HospitalInterpretation and review of laboratory results AbnormalProAvita Health System Ontario HospitalProAvita Health System Ontario HospitalGlucose [Mass/Vol]322 mg/kWYmwt36-83AvnPzblwfPeterson Regional Medical CenterMAGNESIUMon 90-32-7811Noydzocnd [Mass/Vol]1.8 mg/dLNormal1.8-2.6UC Medical CenterComment on above: Performed By: #### ADOLFO KING, 1987-10, , 02969-6 #### [facility] ([id number]) [address] [place] [address] 02166Mtbqtmqfuka 09-18-8156Yykuzkunt [Mass/Vol]1.8 mg/dL1.8 - 2.6 mg/dLMercy Health St. Anne HospitalNo Panel Informationon 06-36-4963CoyRllqzoRegency Hospital CompanyCBC AND AUTO DIFFon 41-70-2832IISSCYUB BASOPHIL0.1 X10E9/LNormal0.0-0.2 UC Medical CenterComment on above:Performed By: #### ADOLFO KING, 1987-10, , 80870-1 #### [facility] ([id number]) [address] [place] [address] 42551HIXUNRLU NEUTROPHIL3.7 X10E9/LNormal1.5-6.6UC Medical CenterComment on above:Performed By: #### ADOLFO KING, 1987-10, , 67982-3 #### [facility] ([id number]) [address] [place] [address] 02905Lpoykxbto/100 WBC (Bld)0.9 %NormalUC Medical Center Comment on above:Performed By: #### ADOLFO KING, 1987-10, , 60722-4 #### [facility] ([id number]) [address] [place] [address] 08839Fajkvbajwqq (Bld) [#/Vol]0.3 10*3/uLNormal0.0-0.4ProPeterson Regional Medical CenterComment on above:Performed By: #### [facility], 1987-10, , 81725-1 #### [facility] ([id number]) [address] [place] [address] 22907Fbmmjpzpmqa/100 WBC (Bld)4.5 %NormalUC Medical Center Comment on above:Performed By: #### [facility], 1987-10, , 56481-9 #### [facility] ([id number]) [address] [place] [address] 38612Fbxcrrdtldn distribution width (RBC) [Ratio]13.5 %Normal 11.5-15.0ProPeterson Regional Medical CenterComment on above:Performed By: #### [facility], 1987-10, , 51063-8 #### [facility] ([id number]) [address] [place] [address] 96774Aluedflsjo (Bld) [Volume fraction]26.4 %Rlg43-43McwYetzqkPeterson Regional Medical CenterComment on above:Performed By: #### [facility], 1987-10, , 46079-0 #### [facility] ([id number]) [address] [place] [address] 97068Rqjulrlaej (Bld) [Mass/Vol]8.8 g/dLLow11.7-15.5PChildren's Hospital of ColumbusComment on above:Performed By: #### ADOLFO KING, 1987-10, , 25767-1 #### [facility] ([id number]) [address] [place] [address] 70228Ujlbfetboun (Bld) [#/Vol]1.9 10*3/uLNormal1.0-3.5PChildren's Hospital of ColumbusComment on above:Performed By: #### [facility], 1987-10, , 22488-4 #### [facility] ([id number]) [address] [place] [address] 79561Gzpgexhrzhq/100 WBC (Bld)29.2 %NormalUC Medical Center Comment on above:Performed By: #### [facility], 1987-10, , 24327-8 #### [facility] ([id number]) [address] [place] [address] 33289VUM (RBC) [Entitic mass]31.2 yhHrgjus98-80ZksVucqfdUC Medical CenterComment on above:Performed By: #### [facility], 1987-10, , #### [facility] ([id number]) [address] [place] [address] 43323BZWR (RBC) [Mass/Vol]33.3 g/jNWckeyk62-03IzxQzcnarPeterson Regional Medical CenterComment on above:Performed By: #### [facility], 1987-10, , 64271-9 #### [facility] ([id number]) [address] [place] [address] 48288RVO (RBC) [Entitic vol]94 jZTroibr90-077VmhNtiuqt Fremont HospitalComment on above:Performed By: #### [facility], 1987-10, , 27020-8 #### [facility] ([id number]) [address] [place] [address] 66820Qwwifolee (Bld) [#/Vol]0.6 10*3/uLNormal0-0.9UC Medical CenterComment on above:Performed By: #### CBCA, CMP, 1987-10, , 93729-7 #### [facility] ([id number]) [address] [place] [address] 03959Zcztklxzc/100 WBC (Bld)8.7 %[facility] Comment on above:Performed By: #### CBCA, CMP, 1987-10, , 38865-2 #### [facility] ([id number]) [address] [place] [address] 06070Gefsbtvvuqd/100 WBC (Bld)56.7 %[facility] Comment on above:Performed By: #### CBCA, CMP, 1987-10, , 82256-3 #### [facility] ([id number]) [address] [place] [address] 21514Fcsjrjqx mean volume (Bld) [Entitic vol]10.4 fLNormal7-12 UC Medical CenterComment on above:Performed By: #### CBCA, CMP, 1987-10, , 22900-4 #### [facility] ([id number]) [address] [place] [address] 77179Psqjbtpqz (Bld) [#/Vol]224 10*3/eIPxghsq049-954KuhOuibfoUC Medical CenterComment on above:Performed By: #### CBCA, CMP, 1987-10, , 91865-4 #### [facility] ([id number]) [address] [place] [address] 77695HUP COUNT2.82 X10E12/LLow3.80-5.20[facility] Comment on above:Performed By: #### CBCA, CMP, 1987-10, , 84676-3 #### [facility] ([id number]) [address] [place] [address] 02050VAJ (Bld) [#/Vol]6.4 10*3/uLNormal4.0-11.0UC Medical CenterComment on above:Performed By: #### CHRISTINE, CMP, 1987-, 92935-4, 54844-0 #### [facility] ([id number]) [address] [facility], [address] FLO[address] [place], [place] [address]DGA auto differentialon 27-80-4985Wxshpjagk (Bld) [#/Vol]0.1 10*3/uLMercy Health St. Rita's Medical Center Health SystemBasophils/100 WBC (Bld)0.9 %[facility] SystemEosinophils (Bld) [#/Vol]0.3 10*3/uLAultman Hospital SystemEosinophils/100 WBC (Bld)4.5 %[facility] SystemErythrocyte distribution width (RBC) [Ratio]13.5 %11.5 - 15.0 %[facility] SystemHematocrit (Bld) [Volume fraction]26.4 %Low35 - 47 %[facility] SystemHemoglobin (Bld) [Mass/Vol]8.8 g/dLLow11.7 - 15.5 g/dLAultman Hospital SystemInterpretation and review of laboratory resultsAbnormalAultman Hospital SystemLymphocytes (Bld) [#/Vol]1.9 10*3/uLAultman Hospital SystemLymphocytes/100 WBC (Bld)29.2 %[facility] HospitalMCH (RBC) [Entitic mass]31.2 pg27 - 34 pgPRegency Hospital CompanyMCHC (RBC) [Mass/Vol]33.3 g/dL32 - 36 g/dLMercy Health St. Anne HospitalMCV (RBC) [Entitic vol]94 fL80 - 100 [facility]'s HospitalMonocytes (Bld) [#/Vol]0.6 10*3/uLProBucyrus Community Hospital SystemMonocytes/100 WBC (Bld)8.7 %[facility] SystemNeutrophils (Bld) [#/Vol]3.7 10*3/uLAultman Hospital SystemNeutrophils/100 WBC (Bld)56.7 % [facility] SystemPlatelet mean volume (Bld) [Entitic vol]10.4 fL7 - [address] Anne HospitalPlatelets (Bld) [#/Vol]224 10*3/uLMercy Health St. Anne Hospital RBC (Bld) [#/Vol]2.82 10*6/uLLowMercy Health St. Anne HospitalWBC corrected for nucl RBC Auto (Bld) [#/Vol]6.4[facility] COMPREHENSIVE METABOLIC PANELon 63-34-6471Yzkzdbb [Mass/Vol]2.6 g/dLLow3.2-5.3 UC Medical CenterComment on above:Performed By: #### ADOLFO KING, 1987-10, , 68707-6 #### [facility] ([id number]) [address] [place] [address] 80612PYO [Catalytic activity/Vol]38 U/TNlh05-899BdeHgyozxPeterson Regional Medical CenterComment on above:Performed By: #### ADOLFO KING, 1987-10, , 42571-5 #### [facility] ([id number]) [address] [place] [address] 40154EYM [Catalytic activity/Vol]14 U/LNormal0-31ProMedSutter Amador HospitalComment on above:Performed By: #### ADOLFO KING, 1987-10, , 88369-0 #### [facility] ([id number]) [address] [place] [address] 09417Upqys gap [Moles/Vol]10 mmol/LNormal5-15UC Medical CenterComment on above:Performed By: #### ADOLFO KING, 1987-10, , 18317-1 #### [facility] ([id number]) [address] [place] [address] 88923KAR [Catalytic activity/Vol]16 U/LNormal0-41ProPeterson Regional Medical CenterComment on above:Performed By: #### ADOLFO KING, 1987-10, , 72492-3 #### [facility] ([id number]) [address] [place] [address] 51048Wxkmjxdng [Mass/Vol]0.5 mg/dLNormal0.3-1.2PChildren's Hospital of ColumbusComment on above:Performed By: #### ADOLFO KING, 1987-10, , 06808-5 #### [facility] ([id number]) [address] [place] [address] 98809Lztehnd [Mass/Vol]8.4 mg/dLLow8.5-10.5PChildren's Hospital of ColumbusComment on above:Performed By: #### ADOLFO KING, 1987-10, , 01800-1 #### [facility] ([id number]) [address] [place] [address] 91200Almqwexo [Moles/Vol]102 mmol/SYnrpyl65-778HhaIzvkmfPeterson Regional Medical CenterComment on above:Performed By: #### ADOLFO KING, 1987-10, , 75187-5 #### [facility] ([id number]) [address] [place] [address] 59546BN2 [Moles/Vol]21 mmol/DDvu44-97VbhBvlwvoChildren's Hospital of Columbus Comment on above:Performed By: #### ADOLFO KING, 1987-10, , 55160-3 #### [facility] ([id number]) [address] [place] [address] 54714Uqjtcorocs [Mass/Vol]1.36 mg/dLHigh0.40-1.00UC Medical CenterComment on above:Result Comment: METHOD TRACEABLE TO IDMS STANDARD Performed By: #### ADOLFO KING, 1987-10, , 01419-6 #### [facility] ([id number]) [address] [place] [address] 58240EAA/1.73 sq M.predicted among non-blacks MDRD (S/P/Bld) [Vol rate/Area]46 mL/min/{1.73_m2}Low>59ProPeterson Regional Medical CenterComment on above: Result Comment: Reported eGFR is based on the CKD-EPI 2020 equation that does not use a race coefficient.Performed By: #### ADOLFO KING, 1987-10, , 00015- 4 #### [facility] ([id number]) [address] [place] [address] 88440Slzlziz [Mass/Vol]357 mg/sRHrlm61-91KrtAbihgwUC Medical Center Comment on above:Performed By: #### ADOLFO KING, 1987-10, , 48799-6 #### [facility] ([id number]) [address] [place] [address] 23898Zeraekxpj [Moles/Vol]4.7 mmol/LNormal3.5-5.0ProPeterson Regional Medical CenterComment on above:Performed By: #### ADOLFO KING, 1987-10, , 81151-5 #### [facility] ([id number]) [address] [place] [address] 46880Xsckkig [Mass/Vol]6.5 g/dLNormal6.0-8.0ProPeterson Regional Medical CenterComment on above:Performed By: #### ADOLFO KING, 1987-10, , 78600-8 #### [facility] ([id number]) [address] [place] [address] 10998Oyymbe [Moles/Vol]133 mmol/GPwv549-040OyyRtozyoPeterson Regional Medical CenterComment on above:Performed By: #### ADOLFO KING, 1987-10, , 89308-5 #### [facility] ([id number]) [address] [place] [address] 85372Gizr nitrogen [Mass/Vol]45 mg/dLHigh5-23UC Medical CenterComment on above:Performed By: #### CBCA, CMP, 1987-, 31261-8, 66048-8 #### [facility] ([id number]) [address] [facility], [address] F[address] [place], [place] [address]Pzomkuozaoxrx metabolic panelon 22-51-7042Thlalgn [Mass/Vol]2.6 g/dLLow3.2 - 5.3 g/dLProSt. Elizabeth Hospitalca Health SystemALP [Catalytic activity/Vol]38 U/L Low39 - 130 U/LProMedica Health SystemALT No additional P-5'-P [Catalytic activity/Vol]14 U/L0 - 31 U/LProMedica Health SystemAnion gap [Moles/Vol]10 mmol/L5 - 15 mmol/LProMedica Health SystemAST [Catalytic activity/Vol]16 U/L0 - 41 U/LProMedica Health SystemBilirubin [Mass/Vol]0.5 mg/dL0.3 - 1.2 mg/dL ProMedica Health SystemCalcium [Mass/Vol]8.4 mg/dLLow8.5 - 10.5 mg/dLProSt. Elizabeth Hospitalca Health SystemChloride [Moles/Vol]102 mmol/L98 - 109 mmol/LProMedica Health SystemCO2 [Moles/Vol]21 mmol/LLow22 - 32 mmol/LProMedica Health SystemCreatinine [Mass/Vol]1.36 mg/dLHigh0.40 - 1.00 mg/dLAultman Hospital SystemComment on above:METHOD TRACEABLE TO [facility] STANDARDeGFR (CKD-EPI)non-race rgluktgvv62Hxt- PINPremier Health Upper Valley Medical Center SystemComment on above: Reported eGFR is based on the CKD-EPI 2020 equation that does not use a race coefficient. Glucose [Mass/Vol]357 mg/kFHpeq89 - 99 mg/dLAultman Hospital System Interpretation and review of laboratory resultsAbnormalProBucyrus Community Hospital System Potassium [Moles/Vol]4.7 mmol/L3.5 - 5.0 mmol/LProMedica Health SystemProtein [Mass/Vol]6.5 g/dL6.0 - 8.0 g/dLProBucyrus Community Hospital SystemSodium [Moles/Vol]133 mmol/RUqp434 - 146 mmol/LProMedTriHealthUrea nitrogen [Mass/Vol]45 mg/dL High5 - 23 mg/dLMercy Health St. Anne HospitalGlucose Glucometer (BldC) [Mass/Vol]on 21-27-9755Eqwyjnw [Mass/Vol]317 mg/iLNabh03-83SqgUjanitUC Medical CenterGlucose [Mass/Vol]255 mg/eRItmx26 - 99 mg/dLMercy Health St. Anne HospitalInterpretation and review of laboratory resultsAbnormHoly Redeemer Health SystemGlucose [Mass/Vol]255 mg/gRVuge83-66KxeZxkfygUC Medical CenterGlucose [Mass/Vol]294 mg/dGHjnm83 - 99 mg/dLMercy Health St[address] Anne HospitalInterpretation and review of laboratory resultsAbChildren's Hospital of PhiladelphiaGlucose [Mass/Vol]294 mg/eKBece61-31ZvoWfipvdUC Medical CenterGlucose [Mass/Vol]342 mg/kCUsxz67 - 99 mg/dLMercy Health St. Anne HospitalInterpretation and review of laboratory resultsAbChildren's Hospital of PhiladelphiaGlucose [Mass/Vol]342 mg/wEEwst50-73DjoDtytrxUC Medical CenterMAGNESIUMon 37-64-8820Abpkrzjcm [Mass/Vol]1.9 mg/dLNoal1.8-2.6[facility] Comment on above:Performed By: #### CBCA, CMP, 1988-5, 08489-8, 30203-1 #### [facility] ([id number]) [address] [place] [address], [place], [place] [address]Qbmawdahaug 38-49-6232Ptqfekwvf [Mass/Vol]1.9 mg/dL1.8 - 2.6 mg/dLMercy Health St. Anne HospitalNo Panel Informationon 76-88-7369HliOfewelRegency Hospital CompanyTISSUE CULTUREon 72-44-8723Mojoylel identified Aer cx Nom (Tiss)GRAM STAIN 0 to 1 WHITE BLOOD CELLS/LPF [...] PIPERACIL/TAZOBACTAM S <=4 F TOBRAMYCIN I 8 FIntermediatePChildren's Hospital of ColumbusComment on above:Performed By: #### ADOLFO KING, 1987-10, , 00194-1 #### [facility] ([id number]) [address] [place] [address] 03194OWV AND AUTO DIFFon 78-40-4326QNFPUFVU BASOPHIL0.1 X10E9/L Normal0.0-0.2PChildren's Hospital of ColumbusComment on above:Performed By: #### ADOLFO KING, 1987-10, , 13013-4 #### [facility] ([id number]) [address] [place] [address] 56061RJPMAGNS NEUTROPHIL3.5 X10E9/LNormal1.5-6.6[facility] Medical CenterComment on above:Performed By: #### ADOLFO KING, 1987-10, , 91790-1 #### [facility] ([id number]) [address] [place] [address] 46878Piwtqifah/100 WBC (Bld)0.8 %NormalUC Medical Center Comment on above:Performed By: #### ADOLFO KING, 1987-10, , 18855-6 #### [facility] ([id number]) [address] [place] [address] 60292Usqawgfuaev (Bld) [#/Vol]0.2 10*3/uLNormal0.0-0.4UC Medical CenterComment on above:Performed By: #### ADOLFO KING, 1987-10, , 31621-2 #### [facility] ([id number]) [address] [place] [address] 66079Lvovcdfmyao/100 WBC (Bld)3.8 %NormalUC Medical Center Comment on above:Performed By: #### ADOLFO KING, 1987-10, , 25114-6 #### [facility] ([id number]) [address] [place] [address] 61363Polftsyzjbw distribution width (RBC) [Ratio]13.4 %Normal 11.5-15.0ProPeterson Regional Medical CenterComment on above:Performed By: #### ADOLFO KING, 1987-10, , #### [facility] ([id number]) [address] [place] [address] 55452Iqdqsxqatc (Bld) [Volume fraction]26.5 %Kwj79-29WdlZfwovrPeterson Regional Medical CenterComment on above:Performed By: #### ADOLFO KING, 1987-10, , 49327-2 #### [facility] ([id number]) [address] [place] [address] 12507Oajywycrkt (Bld) [Mass/Vol]8.8 g/dLLow11.7-15.5PChildren's Hospital of ColumbusComment on above:Performed By: #### ADOLFO KING, 1987-10, , 12500-7 #### [facility] ([id number]) [address] [place] [address] 95777Vgoeybtxvvl (Bld) [#/Vol]2.0 10*3/uLNormal1.0-3.5PChildren's Hospital of ColumbusComment on above:Performed By: #### ADOLFO KING, 1987-10, , 79303-7 #### [facility] ([id number]) [address] [place] [address] 54210Zdfkkfcuocj/100 WBC (Bld)31.6 %NormalUC Medical Center Comment on above:Performed By: #### CBCA, CMP, 1987-10, , 12116-9 #### [facility] ([id number]) [address] [place] [address] 91462HQC (RBC) [Entitic mass]31.1 cmTgqqre12-34QofJhosfcPeterson Regional Medical CenterComment on above:Performed By: #### CBCA, CMP, 1987-10, , 47027-9 #### [facility] ([id number]) [address] [place] [address] 10614IGAZ (RBC) [Mass/Vol]33.3 g/bYOojdac09-26EbuKzmxeuPeterson Regional Medical CenterComment on above:Performed By: #### CBCA, CMP, 1987-10, , 50036-9 #### [facility] ([id number]) [address] [place] [address] 63383HJA (RBC) [Entitic vol]94 vFSzvktg21-327PjeOvjxnl [facility]remont HospitalComment on above:Performed By: #### CBCA, CMP, 1987-10, , 91391-4 #### [facility] ([id number]) [address] [place] [address] 33191Isgsrttni (Bld) [#/Vol]0.6 10*3/uLNormal0-0.9UC Medical CenterComment on above:Performed By: #### CBCA, CMP, 1987-10, , 09514-3 #### [facility] ([id number]) [address] [place] [address] 63450Iztlxoiwt/100 WBC (Bld)9.5 %[facility] Comment on above:Performed By: #### CBCA, CMP, 1987-10, , 29871-4 #### [facility] ([id number]) [address] [place] [address] 59209Btkszysodem/100 WBC (Bld)54.3 %[facility] Comment on above:Performed By: #### CBCA, [facility], 1987-10, , 42314-0 #### [facility] ([id number]) [address] [place] [address] 12053Suvijqcj mean volume (Bld) [Entitic vol]10.1 fLNormal7-12 [facility] CenterComment on above:Performed By: #### CBCLiya, CMP, 1987-10, , 48986-6 #### [facility] ([id number]) [address] [place] [address] 17008Cswkiebor (Bld) [#/Vol]222 10*3/tVQwrmiy612-701LqrMpmhzoUC Medical CenterComment on above:Performed By: #### CBCA, CMP, 1987-10, , 99584-3 #### [facility] ([id number]) [address] [place] [address] 40947NWK COUNT2.83 X10E12/LLow3.80-5.20[facility] Comment on above:Performed By: #### CBCA, CMP, 1987-10, , 94329-9 #### [facility] ([id number]) [address] [place] [address] 99329EXQ (Bld) [#/Vol]6.4 10*3/uLNormal4.0-11.0UC Medical CenterComment on above:Performed By: #### CBCA, CMP, 1987-10, 45909-2, 26354-2 #### [facility] ([id number]) [address], [address] [place], [place] [address]TBZ auto differentialon 99-55-4810Ndbzhgaac (Bld) [#/Vol]0.1 10*3/uLProMedica Health SystemBasophils/100 WBC (Bld)0.8 %[facility]Med[facility] Health SystemEosinophils (Bld) [#/Vol]0.2 10*3/uLProMedica Health SystemEosinophils/100 WBC (Bld)3.8 %[facility] Health SystemErythrocyte distribution width (RBC) [Ratio]13.4 %11.5 - 15.0 %[facility] SystemHematocrit (Bld) [Volume fraction]26.5 %Low35 - 47 %[facility] SystemHemoglobin (Bld) [Mass/Vol]8.8 g/dLLow11.7 - 15.5 g/dLAultman Hospital SystemInterpretation and review of laboratory resultsAbnormalAultman Hospital SystemLymphocytes (Bld) [#/Vol]2.0 10*3/uLAultman Hospital SystemLymphocytes/100 WBC (Bld)31.6 %[facility] HospitalMCH (RBC) [Entitic mass]31.1 pg27 - 34 [facility] InstituteMCHC (RBC) [Mass/Vol]33.3 g/dL32 - 36 g/dLMercy Health St. Anne HospitalMCV (RBC) [Entitic vol]94 fL80 - 100 [facility] SystemMonocytes (Bld) [#/Vol]0.6 10*3/uLMercy Health St[facility] Health SystemMonocytes/100 WBC (Bld)9.5 %[facility] SystemNeutrophils (Bld) [#/Vol]3.5 10*3/uLAultman Hospital SystemNeutrophils/100 WBC (Bld)54.3 % [facility] SystemPlatelet mean volume (Bld) [Entitic vol]10.1 fL7 - 12 fL [facility] SystemPlatelets (Bld) [#/Vol]222 10*3/uLProSt. Elizabeth Hospitalca Health System RBC (Bld) [#/Vol]2.83 10*6/uLLowMercy Health St. Anne HospitalWBC corrected for nucl RBC Auto (Bld) [#/Vol]6.4[facility] COMPREHENSIVE METABOLIC PANELon 80-14-4311Nxhxwyo [Mass/Vol]2.5 g/dLLow3.2-5.3 [facility] Medical CenterComment on above:Performed By: #### ADOLFO KING, 1989-10, , 44640-8 #### [facility] ([id number]) [address] [place] [address] 52778UFH [Catalytic activity/Vol]36 U/VHou15-722XfgToszlfUC Medical CenterComment on above:Performed By: #### ADOLFO KING, 1989-10, , 19147-8 #### [facility] ([id number]) [address] [place] [address] 41099EBM [Catalytic activity/Vol]15 U/LNormal0-31ProMedSutter Amador HospitalComment on above:Performed By: #### ADOLFO KING, 1989-10, , 62477-4 #### [facility] ([id number]) [address] [place] [address] 06545Gyzli gap [Moles/Vol]8 mmol/LNormal5-15UC Medical CenterComment on above:Performed By: #### ADOLFO KING, 1989-10, , 03619-1 #### [facility] ([id number]) [address] [place] [address] 39390MEO [Catalytic activity/Vol]15 U/LNormal0-41ProPeterson Regional Medical CenterComment on above:Performed By: #### ADOLFO KING, 1989-10, , 36628-6 #### [facility] ([id number]) [address] [place] [address] 59367Lvargjumh [Mass/Vol]0.6 mg/dLNormal0.3-1.2PChildren's Hospital of ColumbusComment on above:Performed By: #### [facility], 1989-10, , 63970-1 #### [facility] ([id number]) [address] [place] [address] 11117Fqncdio [Mass/Vol]8.4 mg/dLLow8.5-10.5PChildren's Hospital of ColumbusComment on above:Performed By: #### ADOLFO KING, 1989-10, , 48382-3 #### [facility] ([id number]) [address] [place] [address] 27146Fajrpwgq [Moles/Vol]104 mmol/LZjcqhl63-768VpqEdkzkqPeterson Regional Medical CenterComment on above:Performed By: #### ADOLFO KING, 1989-10, , 75923-9 #### [facility] ([id number]) [address] [place] [address] 39736DZ3 [Moles/Vol]23 mmol/ADjryvf16-47IfqVvlzhqChildren's [facility] Comment on above:Performed By: #### ADOLFO KING, 1987-10, , 33932-8 #### [facility] ([id number]) [address] [place] [address] 42297Lkkcbtyazg [Mass/Vol]1.48 mg/dLHigh0.40-1.00ProPeterson Regional Medical CenterComment on above:Result Comment: METHOD TRACEABLE TO IDMS STANDARD Performed By: #### ADOLFO KING, 1987-10, , 25519-4 #### [facility] ([id number]) [address] [place] [address] 60016PLY/1.73 sq M.predicted among non-blacks MDRD (S/P/Bld) [Vol rate/Area]42 mL/min/{1.73_m2}Low>59ProPeterson Regional Medical CenterComment on above: Result Comment: Reported eGFR is based on the CKD-EPI 2020 equation that does not use a race coefficient.Performed By: #### ADOLFO KING, 1987-10, , 4 #### [facility] ([id number]) [address] [place] [address] 73288Qsbresf [Mass/Vol]252 mg/fLWisd97-49XagVatkpvUC Medical Center Comment on above:Performed By: #### ADOLFO KING, 1987-10, , 77678-6 #### [facility] ([id number]) [address] [place] [address] 02689Xoqfofeuk [Moles/Vol]4.5 mmol/LNormal3.5-5.0ProPeterson Regional Medical CenterComment on above:Performed By: #### ADOLFO KING, 1987-10, , 86917-4 #### [facility] ([id number]) [address] [place] [address] 07581Kwikocx [Mass/Vol]6.5 g/dLNormal6.0-8.0ProPeterson Regional Medical CenterComment on above:Performed By: #### ADOLFO KING, 1987-10, , 36520-7 #### [facility] ([id number]) [address] [place] [address] 23833Mfzxia [Moles/Vol]135 mmol/LIpktzo487-160LcgOsyzkj [facility]remont HospitalComment on above:Performed By: ###Demetrio KING CMP, 1987-10, , 87679-9 #### [facility] ([id number]) [address] [place] [address] 33314Yjdk nitrogen [Mass/Vol]39 mg/dLHigh5-23ProPeterson Regional Medical CenterComment on above:Performed By: #### ADOLFO KING, 1987-10, , #### [facility] ([id number]) [address], FIRST FLOOR [place], [place] [id number] metabolic panelon 72-85-2702Ldmixca [Mass/Vol]2.5 g/dLLow3.2 - 5.3 g/dLProSt. Elizabeth Hospitalca Health SystemALP [Catalytic activity/Vol]36 U/L Low39 - 130 U/LProMedica Health SystemALT No additional P-5'-P [Catalytic activity/Vol]15 U/L0 - 31 U/LProMedica Health SystemAnion gap [Moles/Vol]8 mmol/L5 - 15 mmol/LProMedica Health SystemAST [Catalytic activity/Vol]15 U/L0 - 41 U/LProMedica Health SystemBilirubin [Mass/Vol]0.6 mg/dL0.3 - 1.2 mg/dL ProMedica Health SystemCalcium [Mass/Vol]8.4 mg/dLLow8.5 - 10.5 mg/dLProSt. Elizabeth Hospitalca Health SystemChloride [Moles/Vol]104 mmol/L98 - 109 mmol/LProMedica Health SystemCO2 [Moles/Vol]23 mmol/L22 - 32 mmol/LProMedica Health SystemCreatinine [Mass/Vol]1.48 mg/dLHigh0.40 - 1.00 mg/dLProBucyrus Community Hospital SystemComment on above:METHOD TRACEABLE TO IDND STANDARDeGFR (CKD-EPI)non-race oxmqxznwk80Ubr- PINPremier Health Upper Valley Medical Center SystemComment on above: Reported eGFR is based on the CKD-EPI 2020 equation that does not use a race coefficient. Glucose [Mass/Vol]252 mg/pOAreg95 - 99 mg/dLAultman Hospital System Interpretation and review of laboratory resultsAbnormalProSt. Elizabeth Hospitalca Health System Potassium [Moles/Vol]4.5 mmol/L3.5 - 5.0 mmol/LProMedica Health SystemProtein [Mass/Vol]6.5 g/dL6.0 - 8.0 g/dLProSt. Elizabeth Hospitalca Health SystemSodium [Moles/Vol]135 mmol/L134 - 146 mmol/LProMedica Health SystemUrea nitrogen [Mass/Vol]39 mg/dL High5 - 23 mg/dLProBucyrus Community Hospital SystemGlucose Glucometer (BldC) [Mass/Vol]on 49-26-2479Kixovza [Mass/Vol]378 mg/aTUysc25 - 99 mg/dLMercy Health St. [facility] Interpretation and review of laboratory resultsAbnormUPMC Magee-Womens HospitalGlucose [Mass/Vol]378 mg/eJKlfi88-67EnmXwdokkUC Medical CenterGlucose [Mass/Vol]436 mg/dLCritically high65 - 99 mg/dLMercy Health [address] Anne HospitalInterpretation and review of laboratory resultsAbnormAurora Medical Center in Summit SystemGlucose [Mass/Vol]436 mg/dLCritically znxo58-39 UC Medical CenterGlucose [Mass/Vol]346 mg/hREuli22 - 99 mg/dLMercy Health St. Anne HospitalInterpretation and review of laboratory resultsAbnoHospital of the University of PennsylvaniaGlucose [Mass/Vol]346 mg/pNYhbh63-76 UC Medical CenterGlucose [Mass/Vol]416 mg/dLCritically high65 - 99 mg/dLMercy Health St. Anne HospitalInterpretation and review of laboratory results AbnormalProGeisinger Jersey Shore HospitalMAGNESIUMon 02-23-2024 Magnesium [Mass/Vol]2.1 mg/dLNormal1.8-2.6UC Medical CenterComment on above:Performed By: #### ADOLFO KING, 1987-10, , 76785-3 #### [facility] ([id number]) [address] [place] [address] 72724Bbmpvudcyuu 33-81-1103Ikpzjmnpn [Mass/Vol]2.1 mg/dL1.8 - 2.6 mg/dLMercy Health St. Anne HospitalNo Panel Informationon 60-87-1303ThiYviujt Health SystemVancomycin trough [Mass/Vol]on 18-05-5923GwpXdjnsj Health SystemVANCOMYCIN TROUGH6.8 ug/mLNormal5.0-20.0UC Medical CenterComment on above: Performed By: #### ADOLFO KING, 1987-10, , 25190-0 #### [facility] ([id number]) [address] [place] [address] 63730Pajmkwxski, troughon 48-39-7043Fronjeljes trough [Mass/Vol]6.8 ug/mL5.0 - 20.0 ug/mLMercy Health St. Anne HospitalBacteria identified Aer cx Nom (Wound)on 62-79-8484Uczzzvyqoqa observation Gram stain Nom (Unsp spec)10 to 24 WHITE BLOOD CELLS/LPPremier Health Upper Valley Medical Center SystemMicroscopic observation Gram stain Nom (Unsp spec)0 to 1 SQUAMOUS EPITHELIAL CELLS/LPPremier Health Upper Valley Medical Center System Microscopic observation Gram stain Nom (Unsp spec)PositiveProBucyrus Community Hospital SystemMicroscopic observation Gram stain Nom (Unsp spec)NegativeProEncompass Health Rehabilitation [facility] Of Montgomery Health SystemService comment (Unsp spec) [Interp]SPECIMEN 1PGeorgetown Behavioral Hospital System Service comment (Unsp spec) [Interp]NegativeProEncompass Health Rehabilitation Hospital Of [facility] Health SystemService comment (Unsp spec) [Interp]NO STAPHYLOCOCCUS AUREUS ISOLATEDProEncompass Health Rehabilitation [facility] Health SystemService comment (Unsp spec) [Interp]NO PSEUDOMONAS AERUGINOSA ISOLATED [facility] Health SystemService comment (Unsp spec) [Interp]NO BETA HEMOLYTIC STREPTOCOCCI ISOLATEDAultman Hospital SystemProBucyrus Community Hospital SystemCBC AND AUTO DIFFon 23-36-6489WCROXGKF BASOPHIL0.0 X10E9/LNormal0.0-0.2PChildren's Hospital of ColumbusComment on above:Performed By: #### ADOLFO KING, 1987-10, , 26887-7 #### [facility] ([id number]) [address] [place] [address] 21958KZVMYZJX NEUTROPHIL4.7 X10E9/LNormal1.5-6.6UC Medical CenterComment on above:Performed By: #### ADOLFO KNIG, 1987-10, , 78757-6 #### [facility] ([id number]) [address] [place] [address] 05377Fjowqhkig/100 WBC (Bld)0.5 %NormalUC Medical Center Comment on above:Performed By: #### ADOLFO KING, 1987-10, , 39310-8 #### [facility] ([id number]) [address] [place] [address] 51846Juuhbprepjq (Bld) [#/Vol]0.3 10*3/uLNormal0.0-0.4UC Medical CenterComment on above:Performed By: #### [facility], 1987-10, , 31308-8 #### [facility] ([id number]) [address] [place] [address] 58784Hhblxrthxft/100 WBC (Bld)3.4 %NormalUC Medical Center Comment on above:Performed By: #### [facility], 1987-10, , 89908-2 #### [facility] ([id number]) [address] [place] [address] 05507Bievzlgtcsh distribution width (RBC) [Ratio]13.8 %Normal 11.5-15.0ProPeterson Regional Medical CenterComment on above:Performed By: #### [facility], 1987-10, , 18467-6 #### [facility] ([id number]) [address] [place] [address] 07899Vhabmnzdnh (Bld) [Volume fraction]27.6 %Ghb96-75HwvNtzfxmPeterson Regional Medical CenterComment on above:Performed By: #### ADOLFO KING, 1987-10, , 09166-7 #### [facility] ([id number]) [address] [place] [address] 79788Hvbrbervrb (Bld) [Mass/Vol]9.2 g/dLLow11.7-15.5PChildren's Hospital of ColumbusComment on above:Performed By: #### ADOLFO KING, 1987-10, , 91442-3 #### [facility] ([id number]) [address] [place] [address] 53018Bwxuvruypxi (Bld) [#/Vol]2.1 10*3/uLNormal1.0-3.5ProMedSutter Amador HospitalComment on above:Performed By: #### [facility], 1987-10, , 99960-2 #### [facility] ([id number]) [address] [place] [address] 80336Ikhglxcgfng/100 WBC (Bld)26.7 %NormalUC Medical Center Comment on above:Performed By: #### [facility], 1987-10, , #### [facility] ([id number]) [address] [place] [address] 65552XRZ (RBC) [Entitic mass]31.2 tzPkunut90-91CzdMhzasiPeterson Regional Medical CenterComment on above:Performed By: #### [facility], 1987-10, , #### [facility] ([id number]) [address] [place] [address] 99896PXOW (RBC) [Mass/Vol]33.3 g/yUIwgdif15-77EdqAqnqcoPeterson Regional Medical CenterComment on above:Performed By: #### ADOLFO KING, 1987-10, , 57242-3 #### [facility] ([id number]) [address] [place] [address] 96373FFK (RBC) [Entitic vol]94 bQKhxlyw86-473KikKzrkqe [facility]ont HospitalComment on above:Performed By: #### CBCLiya, CMP, 1987-10, , 36694-3 #### [facility] ([id number]) [address] [place] [address] 84456Vmybtekud (Bld) [#/Vol]0.7 10*3/uLNormal0-0.9UC Medical CenterComment on above:Performed By: #### CBCLiya, CMP, 1987-10, , 40196-0 #### [facility] ([id number]) [address] [place] [address] 21677Kmagatqvi/100 WBC (Bld)9.2 %[facility] Comment on above:Performed By: #### CBCA, CMP, 1987-10, , 06165-4 #### [facility] ([id number]) [address] [place] [address] 17304Xefulvuirrh/100 WBC (Bld)60.2 %[facility] Comment on above:Performed By: #### CBCLiya, CMP, 1987-10, , 67502-2 #### [facility] ([id number]) [address] [place] [address] 20918Tvnovtng mean volume (Bld) [Entitic vol]10.3 fLNormal7-12 UC Medical CenterComment on above:Performed By: #### CBCLiya, CMP, 1987-10, , 87289-7 #### [facility] ([id number]) [address] [place] [address] 85758Yslopuvjd (Bld) [#/Vol]253 10*3/vCPnoglp290-883PqaNacsozUC Medical CenterComment on above:Performed By: #### CBCA, CMP, 1987-10, , 52257-3 #### [facility] ([id number]) [address] [place] [address] 96731QUO COUNT2.94 X10E12/LLow3.80-5.20[facility] Comment on above:Performed By: #### CBCA, CMP, 1987-10, , 26689-6 #### [facility] ([id number]) [address] [place] [address] 62547ILY (Bld) [#/Vol]7.9 10*3/uLNormal4.0-11.0UC Medical CenterComment on above:Performed By: #### CBCA, CMP, 1987-, 58592-8, 87821-4 #### [facility] ([id number]) [address] [facility], [address] FLO[address] [place], [place] [address]QCY auto differentialon 90-36-6587Xxmvkkvaf (Bld) [#/Vol]0.0 10*3/uLAultman Hospital SystemBasophils/100 WBC (Bld)0.5 %[facility] Anne HospitalEosinophils (Bld) [#/Vol]0.3 10*3/uLMercy Health St. Anne HospitalEosinophils/100 WBC (Bld)3.4 %[facility] HospitalErythrocyte distribution width (RBC) [Ratio]13.8 %11.5 - 15.0 %[facility] SystemHematocrit (Bld) [Volume fraction]27.6 %Low35 - 47 %[facility] HospitalHemoglobin (Bld) [Mass/Vol]9.2 g/dLLow11.7 - 15.5 g/dLMercy Health St[address] Anne HospitalInterpretation and review of laboratory resultsAbnormalMercy Health St. Anne HospitalLymphocytes (Bld) [#/Vol]2.1 10*3/uLMercy Health St. Anne HospitalLymphocytes/100 WBC (Bld)26.7 %[facility] HospitalMCH (RBC) [Entitic mass]31.2 pg27 - 34 pgPRegency Hospital CompanyMCHC (RBC) [Mass/Vol]33.3 g/dL32 - 36 g/dLMercy Health St. Anne HospitalMCV (RBC) [Entitic vol]94 fL80 - 100 [facility]'s HospitalMonocytes (Bld) [#/Vol]0.7 10*3/uLMercy Health St. Anne HospitalMonocytes/100 WBC (Bld)9.2 %[facility] HospitalNeutrophils (Bld) [#/Vol]4.7 10*3/uLMercy Health St. Anne HospitalNeutrophils/100 WBC (Bld)60.2 % ProMedica Health SystemPlatelet mean volume (Bld) [Entitic vol]10.3 fL7 - 12 fL [facility] SystemPlatelets (Bld) [#/Vol]253 10*3/uLMercy Health St. Anne Hospital RBC (Bld) [#/Vol]2.94 10*6/uLLowMercy Health St. Anne HospitalWBC corrected for nucl RBC Auto (Bld) [#/Vol]7.9[facility] COMPREHENSIVE METABOLIC PANELon 34-99-6895Hbcsflp [Mass/Vol]2.6 g/dLLow3.2-5.3 UC Medical CenterComment on above:Performed By: #### ADOLFO KING, 1987-10, , 83038-5 #### [facility] ([id number]) [address] [place] [address] 61241EJI [Catalytic activity/Vol]37 U/PSeo77-194MtnBxwrwbUC Medical CenterComment on above:Performed By: #### ADOLFO KING, 1987-10, , 30700-5 #### [facility] ([id number]) [address] [place] [address] 54088OEC [Catalytic activity/Vol]16 U/LNormal0-31ProMedSutter Amador HospitalComment on above:Performed By: #### ADOLFO KNIG, 1987-10, , 57500-5 #### [facility] ([id number]) [address] [place] [address] 41481Kuigs gap [Moles/Vol]9 mmol/LNormal5-15UC Medical CenterComment on above:Performed By: #### ADOLFO KING, 1987-10, , 65465-7 #### [facility] ([id number]) [address] [place] [address] 84189VDP [Catalytic activity/Vol]23 U/LNormal0-41ProPeterson Regional Medical CenterComment on above:Performed By: #### ADOLFO KING, 1987-10, , 11445-5 #### [facility] ([id number]) [address] [place] [address] 56723Cmbqomdrl [Mass/Vol]0.6 mg/dLNormal0.3-1.2PChildren's Hospital of ColumbusComment on above:Performed By: #### ADOLFO KING, 1987-10, , 35389-4 #### [facility] ([id number]) [address] [place] [address] 13385Usewjiv [Mass/Vol]8.5 mg/dLNormal8.5-10.5PChildren's Hospital of ColumbusComment on above:Performed By: #### ADOLFO KING, 1987-10, , 18837-5 #### [facility] ([id number]) [address] [place] [address] 81597Msgadymn [Moles/Vol]108 mmol/RNimjib55-568EpsRilvcePeterson Regional Medical CenterComment on above:Performed By: #### ADOLFO KING, 1987-10, , 93383-2 #### [facility] ([id number]) [address] [place] [address] 09569EW5 [Moles/Vol]21 mmol/FLob86-84WxxCnwcbcChildren's Hospital of [facility] Comment on above:Performed By: #### ADOLFO KING, 1987-10, , 53589-8 #### [facility] ([id number]) [address] [place] [address] 67631Kfblyukqtw [Mass/Vol]1.47 mg/dLHigh0.40-1.00UC Medical CenterComment on above:Result Comment: METHOD TRACEABLE TO IDMS STANDARD Performed By: #### ADOLFO KING, 1987-10, , 90949-4 #### [facility] ([id number]) [address] [place] [address] 70273YYH/1.73 sq M.predicted among non-blacks MDRD (S/P/Bld) [Vol rate/Area]42 mL/min/{1.73_m2}Low>59ProPeterson Regional Medical CenterComment on above: Result Comment: Reported eGFR is based on the CKD-EPI 2020 equation that does not use a race coefficient.Performed By: #### ADOLFO KING, 1987-10, , 32587- 4 #### [facility] ([id number]) [address] [place] [address] 30219Ekdqyxm [Mass/Vol]105 mg/zYTyui22-10MobSakfdlUC Medical Center Comment on above:Performed By: #### ADOLFO KING, 1987-10, , 61018-3 #### [facility] ([id number]) [address] [place] [address] 30551Igrnydyro [Moles/Vol]4.3 mmol/LNormal3.5-5.0ProPeterson Regional Medical CenterComment on above:Performed By: #### ADOLFO KING, 1987-10, , 56178-0 #### [facility] ([id number]) [address] [place] [address] 64599Couidwk [Mass/Vol]6.5 g/dLNormal6.0-8.0ProPeterson Regional Medical CenterComment on above:Performed By: #### ADOLFO KING, 1987-10, , 79323-5 #### [facility] ([id number]) [address] [place] [address] 68974Fsqehy [Moles/Vol]138 mmol/LOhbdyi977-659JwpGbwjtq [facility] HospitalComment on above:Performed By: #### ADOLFO KING, 1987-10, , 39215-8 #### [facility] ([id number]) [address] [place] [address] 95595Rrmh nitrogen [Mass/Vol]38 mg/dLHigh5-23UC Medical CenterComment on above:Performed By: #### CBCA, CMP, 1987-, 34517-6, 21733-8 #### [facility] ([id number]) [address], [address] [place], [place] [address]Gynuszxofpbfq metabolic panelon 03-43-2321Egbalam [Mass/Vol]2.6 g/dLLow3.2 - 5.3 g/dLProSt. Elizabeth Hospitalca Health SystemALP [Catalytic activity/Vol]37 U/L Low39 - 130 U/LProMedica Health SystemALT No additional P-5'-P [Catalytic activity/Vol]16 U/L0 - 31 U/LProMedica Health SystemAnion gap [Moles/Vol]9 mmol/L5 - 15 mmol/LProMedica Health SystemAST [Catalytic activity/Vol]23 U/L0 - 41 U/LProMedica Health SystemBilirubin [Mass/Vol]0.6 mg/dL0.3 - 1.2 mg/dL Pro[facility]ica Health SystemCalcium [Mass/Vol]8.5 mg/dL8.5 - 10.5 mg/dLProSt. Elizabeth Hospitalca Health SystemChloride [Moles/Vol]108 mmol/L98 - 109 mmol/LProMedica Health SystemCO2 [Moles/Vol]21 mmol/LLow22 - 32 mmol/LProMedica Health SystemCreatinine [Mass/Vol]1.47 mg/dLHigh0.40 - 1.00 mg/dLAultman Hospital SystemComment on above:METHOD TRACEABLE TO IDND STANDARDeGFR (CKD-EPI)non-race arkfwpyyx58Afa- PINPremier Health Upper Valley Medical Center SystemComment on above: Reported eGFR is based on the CKD-EPI 2020 equation that does not use a race coefficient. Glucose [Mass/Vol]105 mg/mSPyva24 - 99 mg/dLAultman Hospital System Interpretation and review of laboratory resultsAbnormalProBucyrus Community Hospital System Potassium [Moles/Vol]4.3 mmol/L3.5 - 5.0 mmol/LProMedica Health SystemProtein [Mass/Vol]6.5 g/dL6.0 - 8.0 g/dLProMedica Health SystemSodium [Moles/Vol]138 mmol/L134 - 146 mmol/LProMedica [facility] SystemUrea nitrogen [Mass/Vol]38 mg/dL High5 - 23 mg/dLMercy Health St. Anne HospitalGlucose Glucometer (BldC) [Mass/Vol]on 10-74-4326Ragvrav [Mass/Vol]416 mg/dLCritically kkjv91-61KaeCveiwiUC Medical CenterGlucose [Mass/Vol]423 mg/dLCritically high65 - 99 mg/dLMercy Health [address] Anne HospitalInterpretation and review of laboratory resultsAbnoWakeMed North HospitalProAvita Health System Ontario HospitalGlucose [Mass/Vol]423 mg/dLCritically siuh48-71 [facility] CenterGlucose [Mass/Vol]280 mg/yYJqdd11 - 99 mg/dLMercy Health [address] Anne HospitalInterpretation and review of laboratory resultsAbnoHospital of the University of PennsylvaniaGlucose [Mass/Vol]280 mg/cTFnzh65-13 [facility] CenterMAGNESIUMon 47-53-5743Xrgjbmzzg [Mass/Vol]2.1 mg/dL Normal1.8-2.6UC Medical CenterComment on above:Performed By: #### ADOLFO KING, 1987-10, , 92083-0 #### [facility] ([id number]) [address] [place] [address] 58663Cyewcbjcmia 71-96-7325Gfrckkclq [Mass/Vol]2.1 mg/dL1.8 - 2.6 mg/dLMercy Health St. Anne HospitalNo Panel Informationon 01-13-7781AlzFfhncl Health SystemCBC AND AUTO DIFFon 99-91-7637XTMXRQPZ BASOPHIL0.0 X10E9/LNormal0.0-0.2 [facility] CenterComment on above:Performed By: #### ADOLFO KING, 1987-10, , 24670-7 #### [facility] ([id number]) [address] [place] [address] 91324GPLWAFKT NEUTROPHIL4.0 X10E9/LNormal1.5-6.6UC Medical CenterComment on above:Performed By: #### CBCA, CMP, 1987-10, , 89845-7 #### [facility] ([id number]) [address] [place] [address] 55057Yeolbngmb/100 WBC (Bld)0.5 %NormalUC Medical Center Comment on above:Performed By: #### CBCA, CMP, 1987-10, , 40064-8 #### [facility] ([id number]) [address] [place] [address] 71539Pgrraqodeqz (Bld) [#/Vol]0.2 10*3/uLNormal0.0-0.4UC Medical CenterComment on above:Performed By: #### CBCA, CMP, 1987-10, , 23282-7 #### [facility] ([id number]) [address] [place] [address] 99896Zpslhxgyjwi/100 WBC (Bld)3.0 %NormalUC Medical Center Comment on above:Performed By: #### CBCLiya, CMP, 1987-10, , 45368-1 #### [facility] ([id number]) [address] [place] [address] 12017Jefllynlhfg distribution width (RBC) [Ratio]14.0 %Normal 11.5-15.0ProPeterson Regional Medical CenterComment on above:Performed By: #### CBCA, CMP, 1987-10, , 29481-7 #### [facility] ([id number]) [address] [place] [address] 13919Qoneshlkoj (Bld) [Volume fraction]28.4 %Rei72-67DldAvfjbbPeterson Regional Medical CenterComment on above:Performed By: #### CBCA, CMP, 1987-10, , 57780-7 #### [facility] ([id number]) [address] [place] [address] 04016Yvwaqdmzaa (Bld) [Mass/Vol]9.4 g/dLLow11.7-15.5PChildren's Hospital of ColumbusComment on above:Performed By: #### [facility], 1987-10, , 47875-4 #### [facility] ([id number]) [address] [place] [address] 99065Ilyhmqmuvgl (Bld) [#/Vol]2.0 10*3/uLNormal1.0-3.5PChildren's Hospital of ColumbusComment on above:Performed By: #### [facility], 1987-10, , 83683-8 #### [facility] ([id number]) [address] [place] [address] 92355Bgychfoodgn/100 WBC (Bld)28.7 %NormalUC Medical Center Comment on above:Performed By: #### [facility], 1989-10, , 76898-7 #### [facility] ([id number]) [address] [place] [address] 14930PBF (RBC) [Entitic mass]31.2 fyWgdgfn00-60GvwKuxuhuUC Medical CenterComment on above:Performed By: #### CBCLiya, [facility], 1987-10, , 42821-4 #### [facility] ([id number]) [address] [place] [address] 18782BKJE (RBC) [Mass/Vol]32.9 g/rYBbzows65-03MewAtubbtUC Medical CenterComment on above:Performed By: #### CBCA, [facility], 1987-10, , 03804-5 #### [facility] ([id number]) [address] [place] [address] 16895OUN (RBC) [Entitic vol]95 fZAlyzcp40-108TdpVisspd [facility]remont HospitalComment on above:Performed By: #### CBCLiya, CMP, 1987-10, , 24834-8 #### [facility] ([id number]) [address] [place] [address] 73654Zshdsmafa (Bld) [#/Vol]0.8 10*3/uLNormal0-0.9UC Medical CenterComment on above:Performed By: #### CBCA, CMP, 1987-10, , 20922-6 #### [facility] ([id number]) [address] [place] [address] 38814Ikuizsnsj/100 WBC (Bld)10.8 %NormalUC Medical Center Comment on above:Performed By: #### CBCA, CMP, 1987-10, , 45588-7 #### [facility] ([id number]) [address] [place] [address] 73440Aryhxysjleg/100 WBC (Bld)57.0 %NormalUC Medical Center Comment on above:Performed By: #### CHRISTINE, CMP, 1987-10, , 60122-7 #### [facility] ([id number]) [address] [place] [address] 27307Effadbuy mean volume (Bld) [Entitic vol]9.9 fLNormal7-12 ProMSan Gabriel Valley Medical CenterComment on above:Performed By: #### CBCA, CMP, 1987-10, , 60725-4 #### [facility] ([id number]) [address] [place] [address] 71025Otnofiszw (Bld) [#/Vol]247 10*3/cXBngqho556-300GymKzppfc [facility]remont HospitalComment on above:Performed By: #### CBCA, CMP, 1987-10, , 13246-5 #### [facility] ([id number]) [address], [place] [address]MFF COUNT3.00 X10E12/LLow3.80-5.20[facility] Comment on above:Performed By: #### ADOLFO KING, 1989-10, , 15422-3 #### [facility] ([id number]) [address] [place] [address] 09664OKX (Bld) [#/Vol]7.0 10*3/uLNormal4.0-11.0UC Medical CenterComment on above:Performed By: #### ADOLFO KING, 1989-10, , 12691-0 #### [facility] ([id number]) [address] [place] [address] [id number] auto differentialon 64-68-4363Kypcugvvt (Bld) [#/Vol]0.0 10*3/uLAultman Hospital SystemBasophils/100 WBC (Bld)0.5 %[facility] HospitalEosinophils (Bld) [#/Vol]0.2 10*3/uLAultman Hospital SystemEosinophils/100 WBC (Bld)3.0 %[facility] HospitalErythrocyte distribution width (RBC) [Ratio]14.0 %11.5 - 15.0 %[facility] HospitalHematocrit (Bld) [Volume fraction]28.4 %Low35 - 47 %[facility] HospitalHemoglobin (Bld) [Mass/Vol]9.4 g/dLLow11.7 - 15.5 g/dLMercy Health St. Anne HospitalInterpretation and review of laboratory resultsAbnormalMercy Health St. Anne HospitalLymphocytes (Bld) [#/Vol]2.0 10*3/uLMercy Health St. Anne HospitalLymphocytes/100 WBC (Bld)28.7 %[facility] HospitalH (RBC) [Entitic mass]31.2 pg27 - 34 [facility] InstituteMCHC (RBC) [Mass/Vol]32.9 g/dL32 - 36 g/dLMercy Health St. Anne HospitalMCV (RBC) [Entitic vol]95 fL80 - 100 fLPRegency Hospital CompanyMonocytes (Bld) [#/Vol]0.8 10*3/uLMercy Health St. Anne HospitalMonocytes/100 WBC (Bld)10.8 %[facility] HospitalNeutrophils (Bld) [#/Vol]4.0 10*3/uLMercy Health St. Anne HospitalNeutrophils/100 WBC (Bld)57.0 % [facility] HospitalPlatelet mean volume (Bld) [Entitic vol]9.9 fL7 - [address] Anne HospitalPlatelets (Bld) [#/Vol]247 10*3/uLMercy Health St. [facility] Hospital RBC (Bld) [#/Vol]3.00 10*6/uLLowMercy Health St. Anne HospitalWBC corrected for nucl RBC Auto (Bld) [#/Vol]7.0[facility] COMPREHENSIVE METABOLIC PANELon 88-47-2756Arnwlrj [Mass/Vol]2.7 g/dLLow3.2-5.3 UC Medical CenterComment on above:Performed By: #### ADOLFO KING, 1987-10, , 73412-6 #### [facility] ([id number]) [address] [place] [address] 19164XAW [Catalytic activity/Vol]35 U/XRhn65-864TztBmreldUC Medical CenterComment on above:Performed By: #### ADOLFO KING, 1987-10, , 13217-1 #### [facility] ([id number]) [address] [place] [address] 13516EFU [Catalytic activity/Vol]17 U/LNormal0-31PChildren's Hospital of ColumbusComment on above:Performed By: #### ADOLFO KING, 1987-10, , 69140-9 #### [facility] ([id number]) [address] [place] [address] 61746Pvnzz gap [Moles/Vol]10 mmol/LNormal5-15ProPeterson Regional Medical CenterComment on above:Performed By: #### ADOLFO KING, 1987-10, , 44199-5 #### [facility] ([id number]) [address] [place] [address] 35771VNW [Catalytic activity/Vol]23 U/LNormal0-41ProPeterson Regional Medical CenterComment on above:Performed By: #### ADOLFO KIGN, 1987-10, , 87076-3 #### [facility] ([id number]) [address] [place] [address] 34712Nfewmtvpw [Mass/Vol]0.7 mg/dLNormal0.3-1.2PChildren's Hospital of ColumbusComment on above:Performed By: #### ADOLFO KING, 1987-10, , 51066-2 #### [facility] ([id number]) [address] [place] [address] 16806Hdlkmtb [Mass/Vol]8.4 mg/dLLow8.5-10.5PChildren's Hospital of ColumbusComment on above:Performed By: #### ADOLFO KING, 1987-10, , 04709-8 #### [facility] ([id number]) [address] [place] [address] 46798Oytbvhjl [Moles/Vol]107 mmol/KYpamqh40-491RneMlnaupPeterson Regional Medical CenterComment on above:Performed By: #### ADOLFO KING, 1987-10, , 94700-8 #### [facility] ([id number]) [address] [place] [address], [place] [address]QX0 [Moles/Vol]23 mmol/OQuxzpc94-77AsqIpqldeChildren's Hospital of Columbus Comment on above:Performed By: #### ADOLFO KING, 1987-10, , 22201-0 #### [facility] ([id number]) [address] [place] [address] 18512Xaakshhehb [Mass/Vol]1.68 mg/dLHigh0.40-1.00ProPeterson Regional Medical CenterComment on above:Result Comment: METHOD TRACEABLE TO IDMS STANDARD Performed By: #### ADOLFO KING, 1987-10, , 48880-9 #### [facility] ([id number]) [address] [place] [address] 08154OIB/1.73 sq M.predicted among non-blacks MDRD (S/P/Bld) [Vol rate/Area]36 mL/min/{1.73_m2}Low>59ProPeterson Regional Medical CenterComment on above: Result Comment: Reported eGFR is based on the CKD-EPI 2020 equation that does not use a race coefficient.Performed By: #### ADOLFO KING, 1987-10, , 51501- 4 #### [facility] ([id number]) [address] [place] [address] 04638Beayuen [Mass/Vol]142 mg/lXWjjm40-10LeqVtnltfUC Medical Center Comment on above:Performed By: #### ADOLFO KING, 1987-10, , 38345-4 #### [facility] ([id number]) [address] [place] [address] 21192Kfyhdobsh [Moles/Vol]4.2 mmol/LNormal3.5-5.0ProPeterson Regional Medical CenterComment on above:Performed By: #### ADOLFO KING, 1987-10, , 59017-7 #### [facility] ([id number]) [address] [place] [address] 83521Ermnxli [Mass/Vol]6.5 g/dLNormal6.0-8.0ProPeterson Regional Medical CenterComment on above:Performed By: #### ADOLFO KING, 1987-10, , 19847-5 #### [facility] ([id number]) [address] [place] [address], [place], [place] [address]Bovuue [Moles/Vol]140 mmol/VPlbyfm900-267JhlMkgeuz Fremont HospitalComment on above:Performed By: #### ADOLFO KING, 1987-10, , 94250-2 #### [facility] ([id number]) [address] [place] [address], [place], [place] [address]Fjka nitrogen [Mass/Vol]45 mg/dLHigh5-23ProPeterson Regional Medical CenterComment on above:Performed By: #### ADOLFO KING, 1987-10, , 49120-0 #### [facility] ([id number]) [address] [place] [address], [place], [place] [address]Xtvuoqvza (Vitamin B12) [Mass/Vol]on 15-13-1022RqxBzczsp Health SystemComprehensive metabolic panelon 26-54-9138Xwiabyn [Mass/Vol]2.7 g/dLLow 3.2 - 5.3 g/dLProMedica Health SystemALP [Catalytic activity/Vol]35 U/LLow39 - 130 U/LProMedica Health SystemALT No additional P-5'-P [Catalytic activity/Vol] 17 U/L0 - 31 U/LProMedica Health SystemAnion gap [Moles/Vol]10 mmol/L5 - 15 mmol/LProMedica Health SystemAST [Catalytic activity/Vol]23 U/L0 - 41 U/L ProMedica Health SystemBilirubin [Mass/Vol]0.7 mg/dL0.3 - 1.2 mg/dLProMedica Health SystemCalcium [Mass/Vol]8.4 mg/dLLow8.5 - 10.5 mg/dLProMedica Health SystemChloride [Moles/Vol]107 mmol/L98 - 109 mmol/LProMedica Health SystemCO2 [Moles/Vol]23 mmol/L22 - 32 mmol/LProMedica Health SystemCreatinine [Mass/Vol] 1.68 mg/dLHigh0.40 - 1.00 mg/dLAultman Hospital SystemComment on above:METHOD TRACEABLE TO IDMS STANDARDeGFR (CKD-EPI)non-race yafmbhdzo20Jap- PINFPGeorgetown Behavioral Hospital SystemComment on above: Reported eGFR is based on the CKD-EPI 2020 equation that does not use a race coefficient. Glucose [Mass/Vol]142 mg/sGQjxg53 - 99 mg/dLMercy Health St. [facility] Interpretation and review of laboratory resultsAbnormalAultman Hospital System Potassium [Moles/Vol]4.2 mmol/L3.5 - 5.0 mmol/LProMedica Health SystemProtein [Mass/Vol]6.5 g/dL6.0 - 8.0 g/dLProBucyrus Community Hospital SystemSodium [Moles/Vol]140 mmol/L134 - 146 mmol/LProMedica Health SystemUrea nitrogen [Mass/Vol]45 mg/dL High5 - 23 mg/dLMercy Health St. Anne HospitalFERRITINon 88-41-0002Mweapxgk [Mass/Vol] 568 ng/vVZaaz06-447JvfZfqrpwUC Medical CenterComment on above:Performed By: #### ADOLFO KING, 1987-10, , 99143-4 #### [facility] ([id number]) [address] [place] [address] 35973Fcsferyeqy 72-49-2863Eizcorxl [Mass/Vol]568 ng/vEEgqo04 - 307 ng/mLAultman Hospital SystemFerritin [Mass/Vol]on 15-79-6301Lqnumekmhmhgnx and review of laboratory resultsAbnormalAultman Hospital SystemProBucyrus Community Hospital SystemFolateon 50-85-3507Dialgp [Mass/Vol]ng/mL5.8 - PINF ng/mLMercy Health St. Anne HospitalComment on above:NEW REFERENCE RANGEFolate [Mass/Vol]on 02-21-[address] Anne HospitalFOLIC ACID>25.0Normal>5.8[facility] Comment on above:Result Comment: NEW REFERENCE RANGEPerformed By: #### ADOLFO KING, 1987-10, , 07900-8 #### [facility] ([id number]) [address] [place] [address] 35876Lnvylde Glucometer (BldC) [Mass/Vol]on 70-21-3969Ggcrysu [Mass/Vol]216 mg/kOMvoe27 - 99 mg/dLMercy Health St. Anne HospitalInterpretation and review of laboratory resultsAbnoHospital of the University of PennsylvaniaGlucose [Mass/Vol]216 mg/oAXqsm16-51WjuYsayccUC Medical CenterGlucose [Mass/Vol]189 mg/zJJnav66 - 99 mg/dLMercy Health [address] Anne HospitalInterpretation and review of laboratory resultsAbnoHospital of the University of PennsylvaniaGlucose [Mass/Vol]189 mg/rGOgwx49-83DyeCseusnUC Medical CenterGlucose [Mass/Vol]145 mg/oGMdsk30 - 99 mg/dLMercy Health St[address] Anne HospitalInterpretation and review of laboratory resultsAbChildren's Hospital of PhiladelphiaGlucose [Mass/Vol]145 mg/dEWgqi07-11BxxDntytaUC Medical CenterHGB A1C (GLYCO-HGB)on 42-59-4046Hqdeitv [Mass/Vol]229 mg/dLNoCleveland Clinic Mercy HospitalComment on above:Performed By: #### ADOLFO KING, 1987-10, 21123-8, 76812-0 #### [facility] ([id number]) [address] [place] [address] 98385YcT4k (Bld) [Mass fraction]9.6 %High4.4-5.6UC Medical CenterComment on above:Result Comment: NOTE ADA Guidelines Result HgbA1c Normal : less than 5.7 % Prediabetes : 5.7 % to 6.4 % Diabetes : > 6.4 % Use with caution in patients with abnormal hemoglobin variants as the half-life of red blood cells and in vivo glycation rates are affected.Performed By: #### ADOLFO KING, 1987-10, 28561-7, 01643-7 #### [facility] ([id number]) [address] [place] [address] 82035Uywzkvjvnh A1con 14-13-8865Egaosqx glucose Estimated from glycated hemoglobin (Bld) [Mass/Vol]229 mg/dLMercy Health St. Anne HospitalHbA1c (Bld) [Mass fraction]9.6 %High4.4 - 5.6 %[facility] Anne HospitalComment on above:NOTE ADA Guidelines Result HgbA1c Normal : less than 5.7 % Prediabetes : 5.7 % to 6.4 % Diabetes : > 6.4 % Use with caution in patients with abnormal hemoglobin variants as the half-life of red blood cells and in vivo glycation rates are affected. Interpretation and review of laboratory resultsAbnormUPMC Magee-Womens HospitalIRON PROFILEon 19-36-9514Guia [Mass/Vol]ug/qZRcg54-707 [facility] Medical CenterComment on above:Performed By: #### ADOLFO KING, 1987-10, , 12345-2 #### [facility] ([id number]) [address] [place] [address] 95255SJCU VAEUYUZ923 ug/tGKqrobh441-413OejBawgutUC Medical Center Comment on above:Performed By: #### ADOLFO KING, 1987-10, , 30766-9 #### [facility] ([id number]) [address] [place] [address] 73966DEWE SATURATION<9Xas27-39XauVmiaupUC Medical CenterComment on above:Performed By: #### ADOLFO KING, 1987-10, , 05971-9 #### [facility] ([id number]) [address] [place] [address] 79248Vgcu and TIBCon 29-35-5150Wvvbcktynzdiiw and review of laboratory resultsAbnormLifecare Hospital of Chester County SystemIron [Mass/Vol]ug/dLLow50 - 170 ug/dLMercy Health St[address] Anne HospitalIron binding capacity [Mass/Vol]307 ug/dL250 - 425 ug/dLProMedica Health SystemIron saturation [Mass fraction]LowProMedica Mclaren Caro RegionProBucyrus Community Hospital SystemMAGNESIUMon 87-97-0313Rhnrhsfqr [Mass/Vol]2.3 mg/dL Normal1.8-2.6UC Medical CenterComment on above:Performed By: #### ADOLFO KING, 1987-10, , 62838-6 #### [facility] ([id number]) [address] [place] [address] 07058Phxthueqezu 82-08-1608Wufgubsco [Mass/Vol]2.3 mg/dL1.8 - 2.6 mg/dLAultman Hospital SystemNo Panel Informationon 22-35-5511LyyRgszpzRegency Hospital CompanyTHYROID PROFILEon 42-78-3385Yhve T4 [Mass/Vol]1.11 ng/dLNormal0.61-1.60 ProMSan Gabriel Valley Medical CenterComment on above:Performed By: #### ADOLFO KING, 1987-10, , 95541-9 #### [facility] ([id number]) [address] [place] [address] 70992RQR4.61 uIU/mLNormal0.49-4.67UC Medical CenterComment on above:Performed By: ###Demetrio KING CMP, 1987-10, , 02840-0 #### [facility] ([id number]) [address] [place] [address] 96386Cnzcukk profile includes TSH FT4on 06-07-0989Jlle T4 [Mass/Vol] 1.11 ng/dL0.61 - 1.60 ng/dLMercy Health St. Anne HospitalTSH Qn3.61 m[IU]/LProMedica Summerville Medical Center SystemVITAMIN B12on 89-15-7361Vycyieplq (Vitamin B12) [Mass/Vol]312 pg/mKOqpvhe867-820EaaBughihChildren's Hospital of ColumbusComment on above: Performed By: ###Demetrio KING CMP, 1987-10, , 84922-7 #### [facility] ([id number]) [address] [place] [address] 49988Xmoqomn B12on 18-43-3926Xwuvxbxek (Vitamin B12) [Mass/Vol]312 pg/mL180 - 914 pg/mLMercy Health St. Anne HospitalBLOOD CULTUREon 37-27-5986Xnxrwhzh identified Aer cx Nom (Bld)CULTURE RESULTS NO GROWTH 5 DAYSNormHolzer Health SystemBacteria identified Aer cx Nom (Bld)CULTURE RESULTS NO GROWTH 5 DAYSNormHolzer Health SystemC-reactive proteinon 02-20-2024 CRP [Mass/Vol]10.2 mg/dLHigh0.000 - 0.744 mg/dLMercy Health St. Anne HospitalCBC AND AUTO DIFFon 68-84-5363PRTMOBEZ BASOPHIL0.1 X10E9/LNormal0.0-0.2PChildren's Hospital of ColumbusComment on above:Performed By: #### ADOLFO KING, 1987-10, , 38122-5 #### [facility] ([id number]) [address] [place] [address] 90373UBFHUYUA NEUTROPHIL6.2 X10E9/LNormal1.5-6.6ProPeterson Regional Medical CenterComment on above:Performed By: #### ADOLFO KING, 1987-10, , 93514-5 #### [facility] ([id number]) [address] [place] [address] 39303Ytfjzdjbl/100 WBC (Bld)0.6 %NormalProPeterson Regional Medical Center Comment on above:Performed By: #### ADOLFO KING, 1987-10, , 05438-9 #### [facility] ([id number]) [address] [place] [address] 17315Derofhekonh (Bld) [#/Vol]0.2 10*3/uLNormal0.0-0.4ProPeterson Regional Medical CenterComment on above:Performed By: #### ADOLFO KING, 1987-10, , 61169-7 #### [facility] ([id number]) [address] [place] [address] 18241Femhqnhvhcz/100 WBC (Bld)2.1 %NormalMercy Health [facility]ain Hospital on above:Performed By: #### CHRISTINE, [facility], 1987-10, , 81202-5 #### [facility] ([id number]) [address] [place] [address] 35915Rdskovziljy distribution width (RBC) [Ratio]14.2 %Normal 11.5-15.0ProPeterson Regional Medical CenterComment on above:Performed By: #### CHRISTINE [facility], 1987-10, , 45513-9 #### [facility] ([id number]) [address] [place] [address] 85800Ulqrrbhasm (Bld) [Volume fraction]35.8 %Prgwbg41-95HzhIpthhdPeterson Regional Medical CenterComment on above:Performed By: #### CHRISTINE [facility], 1987-10, , 97790-6 #### [facility] ([id number]) [address] [place] [address] 67142Fzradinrma (Bld) [Mass/Vol]11.9 g/gSJxvrrj60.7-15.5PChildren's Hospital of ColumbusComment on above:Performed By: #### CBCLiya, [facility], 1987-10, , 00483-4 #### [facility] ([id number]) [address] [place] [address] 74249Zkkttcgjafd (Bld) [#/Vol]1.7 10*3/uLNormal1.0-3.5PChildren's Hospital of ColumbusComment on above:Performed By: #### CBCLiya, CMP, 1987-10, , 86078-9 #### [facility] ([id number]) [address], [place] [address]Yamjdcjryzu/100 WBC (Bld)19.0 %NormalUC Medical Center Comment on above:Performed By: #### CBCADOLFO Nickerson, 1987-10, , 65852-6 #### [facility] ([id number]) [address] [place] [address] 73270TLN (RBC) [Entitic mass]31.4 sjClchpg51-35PtcNoksbzUC Medical CenterComment on above:Performed By: #### CBCLiya, [facility], 1987-10, , 77372-9 #### [facility] ([id number]) [address] [place] [address] 72300SEEW (RBC) [Mass/Vol]33.2 g/sCTxagog26-50WetYpsfrmPeterson Regional Medical CenterComment on above:Performed By: #### CBCLiya, [facility], 1987-10, , 39842-8 #### [facility] ([id number]) [address] [place] [address] 85904PLH (RBC) [Entitic vol]94 nZBsdwtz24-595DujVtriukUC Medical CenterComment on above:Performed By: #### CBCADOLFO Nickerson, 1987-10, , 90066-3 #### [facility] ([id number]) [address] [place] [address] 21232Hmszznkqd (Bld) [#/Vol]0.8 10*3/uLNormal0-0.9UC Medical CenterComment on above:Performed By: #### CBCA, CMP, 1987-10, , 87637-0 #### [facility] ([id number]) [address] [place] [address] 27985Hsbuejtpv/100 WBC (Bld)8.5 %NormalUC Medical Center Comment on above:Performed By: #### CBCA, CMP, 1987-10, , 23875-2 #### [facility] ([id number]) [address] [place] [address] 58796Qhzvbtsmnpk/100 WBC (Bld)69.8 %NormalUC Medical Center Comment on above:Performed By: #### CBCA, CMP, 1987-10, , 34441-5 #### [facility] ([id number]) [address] [place] [address] 41719Batnyhac mean volume (Bld) [Entitic vol]10.2 fLNormal7-12 [facility] Cott[facility] HospitalComment on above:Performed By: #### CBCA, CMP, 1987-10, , 88391-4 #### [facility] ([id number]) [address] [place] [address] 56829Owxwfkbrj (Bld) [#/Vol]328 10*3/tLEasgjs858-996ZruByudyk [facility]remont HospitalComment on above:Performed By: #### CBCA, CMP, 1987-10, , 40061-9 #### [facility] ([id number]) [address] [place] [address] 18605PDC COUNT3.79 X10E12/LLow3.80-5.20[facility] Comment on above:Performed By: #### CBCA, CMP, 1987-10, , 86178-4 #### [facility] ([id number]) [address] [place] [address] 66998NUO (Bld) [#/Vol]8.8 10*3/uLNormal4.0-11.0UC Medical CenterComment on above:Performed By: #### CBCA, CMP, 1987-10, , 76670-4 #### [facility] ([id number]) [address] [place] [address] 92407KMU auto differentialon 81-53-2459Fznfkhtbj (Bld) [#/Vol]0.1 10*3/[facility] HospitalBasophils/100 WBC (Bld)0.6 %[facility] HospitalEosinophils (Bld) [#/Vol]0.2 10*3/uLMercy Health St. Anne HospitalEosinophils/100 WBC (Bld)2.1 %[facility] HospitalErythrocyte distribution width (RBC) [Ratio]14.2 %11.5 - 15.0 %[facility] HospitalHematocrit (Bld) [Volume fraction]35.8 %35 - 47 %[facility] HospitalHemoglobin (Bld) [Mass/Vol]11.9 g/dL11.7 - 15.5 g/dLMercy Health St. Anne HospitalInterpretation and review of laboratory resultsAbnormCincinnati Shriners HospitalLymphocytes (Bld) [#/Vol]1.7 10*3/[facility]ont HospitalLymphocytes/100 WBC (Bld)19.0 %[facility] HospitalMCH (RBC) [Entitic mass]31.4 pg27 - 34 pgPRegency Hospital CompanyMCHC (RBC) [Mass/Vol]33.2 g/dL32 - 36 g/dLMercy Health St. Anne HospitalMCV (RBC) [Entitic vol]94 fL80 - 100 [facility] Children's HospitalMonocytes (Bld) [#/Vol]0.8 10*3/[facility]ont HospitalMonocytes/100 WBC (Bld)8.5 %[facility] HospitalNeutrophils (Bld) [#/Vol]6.2 10*3/Be[facility]umont HospitalNeutrophils/100 WBC (Bld)69.8 % [facility] HospitalPlatelet mean volume (Bld) [Entitic vol]10.2 fL7 - [address] Anne HospitalPlatelets (Bld) [#/Vol]328 10*3/[facility] RBC (Bld) [#/Vol]3.79 10*6/LowMercy Health St. Anne HospitalWBC corrected for nucl RBC Auto (Bld) [#/Vol]8.8ProMedica Health SystemProMedica Health System COMPREHENSIVE METABOLIC PANELon 98-14-9135Qrfnptk [Mass/Vol]3.6 g/dLNormal 3.2-5.3PChildren's Hospital of ColumbusComment on above:Performed By: #### ADOLFO KING, 1987-10, , 98296-0 #### [facility] ([id number]) [address] [place] [address] 05851DXG [Catalytic activity/Vol]48 U/YFyixpu73-752KapJbbufgPeterson Regional Medical CenterComment on above:Performed By: #### ADOLFO KING, 1987-10, , 06022-7 #### [facility] ([id number]) [address] [place] [address] 18718EHN [Catalytic activity/Vol]21 U/LNormal0-31PChildren's Hospital of ColumbusComment on above:Performed By: #### ADOFLO KING, 1987-10, , 87250-4 #### [facility] ([id number]) [address] [place] [address] 13044Owoxk gap [Moles/Vol]10 mmol/LNormal5-15UC Medical CenterComment on above:Performed By: #### ADOLFO KING, 1987-10, , 81359-2 #### [facility] ([id number]) [address] [place] [address] 03463ABU [Catalytic activity/Vol]32 U/LNormal0-41ProPeterson Regional Medical CenterComment on above:Performed By: #### ADOLFO KING, 1987-10, , 97226-9 #### [facility] ([id number]) [address] [place] [address] 87022Wgidvgtej [Mass/Vol]0.5 mg/dLNormal0.3-1.2PChildren's Hospital of ColumbusComment on above:Performed By: #### ADOLFO KING, 1987-10, , 75603-2 #### [facility] ([id number]) [address] [place] [address] 97916Ywabaqa [Mass/Vol]9.5 mg/dLNormal8.5-10.5PChildren's Hospital of ColumbusComment on above:Performed By: #### ADOLFO KING, 1987-10, , 56462-7 #### [facility] ([id number]) [address] [place] [address] 87223Yafkbxuj [Moles/Vol]105 mmol/LIlwmnx43-250XvjKmzcoiUC Medical CenterComment on above:Performed By: #### ADOLFO KING, 1987-10, , 63814-8 #### [facility] ([id number]) [address] [place] [address] 46146MQ5 [Moles/Vol]24 mmol/TSczsue80-65GfpBahqmoChildren's Hospital of [facility] Comment on above:Performed By: #### ADOLFO KING, 1989-10, , 27000-1 #### [facility] ([id number]) [address] [place] [address] 51013Ykfrdunxsq [Mass/Vol]1.86 mg/dLHigh0.40-1.00UC Medical CenterComment on above:Result Comment: METHOD TRACEABLE TO IDMS STANDARD Performed By: #### ADOLFO KING, 1989-10, , 40806-0 #### [facility] ([id number]) [address] [place] [address] 46115KNC/1.73 sq M.predicted among non-blacks MDRD (S/P/Bld) [Vol rate/Area]32 mL/min/{1.73_m2}Low>59ProPeterson Regional Medical CenterComment on above: Result Comment: Reported eGFR is based on the CKD-EPI 2020 equation that does not use a race coefficient.Performed By: #### ADOLFO KING, 1989-10, , 67462- 4 #### [facility] ([id number]) [address] [place] [address] 68388Orbolzo [Mass/Vol]134 mg/sCCtec06-25PytRxmxpxUC Medical Center Comment on above:Performed By: #### ADOLFO KING, 1989-10, , 97487-3 #### [facility] ([id number]) [address] [place] [address] 30505Kmxedjfgu [Moles/Vol]4.3 mmol/LNormal3.5-5.0ProPeterson Regional Medical CenterComment on above:Performed By: #### ADOLFO KING, 1989-10, , 41670-7 #### [facility] ([id number]) [address] [place] [address] 63679Pgrlxbm [Mass/Vol]8.4 g/dLHigh6.0-8.0[facility] Comment on above:Performed By: #### ADOLFO KING, 1989-10, , 55563-7 #### [facility] ([id number]) [address] [place] [address] 64595Nuokok [Moles/Vol]139 mmol/BVztohw524-949MefSeydle Fremont HospitalComment on above:Performed By: #### ADOLFO KING, 1989-10, , 00959-0 #### [facility] ([id number]) [address] [place] [address] 11423Chzh nitrogen [Mass/Vol]50 mg/dLHigh5-23ProPeterson Regional Medical CenterComment on above:Performed By: #### ADOLFO KING, 1989-10, , 51445-1 #### [facility] ([id number]) [address] [place] [address] 57953WZH [Mass/Vol]on 09-20-2024C REACTIVE JKWAJZS63.2 mg/dLHigh 0.000-0.744PChildren's Hospital of ColumbusComment on above:Performed By: #### CBCA, [facility], 1989-, 04213-1, 26782-0 #### [facility] ([id number]) [address] [facility], [address] FLO[address] [place], [place] [id number] metabolic panelon 64-51-9538Mzyshqn [Mass/Vol]3.6 g/dL3.2 - 5.3 g/dLProMedica Health SystemALP [Catalytic activity/Vol]48 U/L39 - 130 U/LProMedica Health SystemALT No additional P-5'-P [Catalytic activity/Vol] 21 U/L0 - 31 U/LProMedica Health SystemAnion gap [Moles/Vol]10 mmol/L5 - 15 mmol/LProMedica Health SystemAST [Catalytic activity/Vol]32 U/L0 - 41 U/L ProMedica Health SystemBilirubin [Mass/Vol]0.5 mg/dL0.3 - 1.2 mg/dLProMedica Health SystemCalcium [Mass/Vol]9.5 mg/dL8.5 - 10.5 mg/dLProMedica Health System Chloride [Moles/Vol]105 mmol/L98 - 109 mmol/LProMedica Health SystemCO2 [Moles/Vol]24 mmol/L22 - 32 mmol/LProMedica Health SystemCreatinine [Mass/Vol] 1.86 mg/dLHigh0.40 - 1.00 mg/dLAultman Hospital SystemComment on above:METHOD TRACEABLE TO IDND STANDARDeGFR (CKD-EPI)non-race uwuakkyyl23Qdv- PINFPGeorgetown Behavioral Hospital SystemComment on above: Reported eGFR is based on the CKD-EPI 2020 equation that does not use a race coefficient. Glucose [Mass/Vol]134 mg/zBXyuz52 - 99 mg/dLProMedica Health SystemPotassium [Moles/Vol]4.3 mmol/L3.5 - 5.0 mmol/LProMedica Health SystemProtein [Mass/Vol] 8.4 g/dLHigh6.0 - 8.0 g/dLProMedica Health SystemSodium [Moles/Vol]139 mmol/L134 - 146 mmol/LProMedica [facility] SystemUrea nitrogen [Mass/Vol]50 mg/dLHigh5 - 23 mg/dLMercy Health St. Anne HospitalGlucose Glucometer (BldC) [Mass/Vol]on 02-20-2024 Glucose [Mass/Vol]116 mg/qVBztd39 - 99 mg/dLMercy Health St. Anne Hospital Interpretation and review of laboratory resultsAbnormalMercy Health St. Anne Hospital ProMedicPerham Health Hospital SystemGlucose [Mass/Vol]116 mg/yFBygj26-24QzgAcqdwiUC Medical CenterLactate (P brian) [Moles/Vol]on 43-79-8994PmfJqnrew Health SystemLACTATE W/REFLEX1.2 mmol/LNormal0.4-2.0UC Medical CenterComment on above:Result Comment: Result did not trigger repeat Lactate, re-order if needed.Performed By: #### 87718-5 #### [facility] ([id number]) [address] [place] [address] 97690Deytjyu w/ Reflexon 23-97-0840Qrgdhky (P brian) [Moles/Vol]1.2 mmol/L0.4 - 2.0 mmol/[facility] SystemComment on above: Result did not trigger repeat Lactate, re-order if needed. MAGNESIUMon 35-50-3693Cxljbpudj [Mass/Vol]2.3 mg/dLNormal1.8-2.6UC Medical CenterComment on above:Performed By: #### [facility], [facility], 1990-5, 97917-0, 57674-1 #### [facility] ([id number]) [address] [place] [address] 71617Sijvaeuelxc 84-56-4560Hlsgeiede [Mass/Vol]2.3 mg/dL1.8 - 2.6 mg/dLMercy Health St. Anne HospitalNatriuretic peptide B [Mass/Vol]on 02-20-2024 Natriuretic peptide B (Bld) [Mass/Vol]41 pg/mLNINF - 100.0 pg/mLProAvita Health System Ontario HospitalProEncompass Health Rehabilitation [facility] Montgomery Health SystemNatriuretic peptide B (Bld) [Mass/Vol]41 pg/mL Normal<100.0UC Medical CenterComment on above:Performed By: #### [facility], [facility], 1990-5, 77477-0, 97873-0 #### [facility] ([id number]) [address] [facility] FIRST FLO[address] [place], [place] [address]Kl Panel Informationon 04-08-3689Nhibawjedmqxhl and review of laboratory resultsAbnoHospital of the University of Pennsylvania SUPERFICIAL WOUND CULTUREon 52-04-9544Tmeeebpk identified Aer cx Nom (Wound) SPECIMEN NOTES SPECIMEN 2 GRAM STAIN >25 [...] PIPERACIL/TAZOBACTAM S <=4 F TOBRAMYCIN I 8 FIntermediaUniversity Hospitals Health SystemComment on above:Performed By: #### 632-0 #### [facility] ([id number]) [address] [facility], [address] [place], [place] [address]Yhsserft identified Aer cx Nom (Wound)SPECIMEN NOTES SPECIMEN 1 GRAM STAIN 10 to 24 WHITE BLOOD CELLS/LPF 0 to 1 SQUAMOUS EPITHELIAL CELLS/LPF FEW GRAM POSITIVE COCCI RARE GRAM NEGATIVE RODS CULTURE RESULTS MANY MIXED GRAM POSITIVE AND GRAM NEGATIVE ORGANISMS NO STAPHYLOCOCCUS AUREUS ISOLATED NO PSEUDOMONAS AERUGINOSA ISOLATED NO BETA HEMOLYTIC STREPTOCOCCI ISOLATEDNoCleveland Clinic Mercy HospitalComment on above:Performed By: #### 632-0 #### [facility] ([id number]) [address] [facility] [address] [place], [place] [address]Vu Panel Informationon 51-85-9840Amnuvfh in clinic todayMANUALLY TRANSCRIBED RESULTSProMedica Health SystemNo Panel Informationon 02-06-2024 Applied in clinic todayMANUALLY TRANSCRIBED RESULTSNo Panel InformationOrdered By: Fiorella Martinez on 45-40-2900FclQgbqdx Health SystemBacteria identified Aer cx Nom (Wound)on 58-71-8143Aqwfwcfxzwcoxg and review of laboratory resultsAbnormal ProMMunicipal Hospital and Granite Manor SystemMicroscopic observation Gram stain Nom (Unsp spec)1 to 9 WHITE BLOOD CELLS/LPFPGeorgetown Behavioral Hospital SystemMicroscopic observation Gram stain Nom (Unsp spec)0 SQUAMOUS EPITHELIAL CELLS/LPFPGeorgetown Behavioral Hospital SystemMicroscopic observation Gram stain Nom (Unsp spec)PositiveProBucyrus Community Hospital SystemService comment (Unsp spec) [Interp]RARE LADY PARAPSILOSIS : CLINICAL CORRELATION RECOMMENDED. MAY REPRESENT COMMENSAL ERIC.AbnormalAultman Hospital System Service comment (Unsp spec) [Interp]ALONG WITH MANY NORMAL SKIN FLORAMercy Health St. Anne HospitalProAvita Health System Ontario HospitalNo Panel Informationon 65-40-7389Qpgeokh in clinic today MANUALLY TRANSCRIBED RESULTSProTriHealth Bethesda North HospitalUPERFICIAL WOUND CULTUREon 30-76-0190Jpwrvsnx identified Aer cx Nom (Wound)GRAM STAIN 1 to 9 WHITE BLOOD CELLS/LPF 0 SQUAMOUS EPITHELIAL CELLS/LPF MANY GRAM POSITIVE COCCI IN CLUSTERS CULTURE RESULTS RARE LADY PARAPSILOSIS : CLINICAL CORRELATION RECOMMENDED. MAY REPRESENT COMMENSAL ERIC. ALONG WITH MANY NORMAL SKIN FLORANoCleveland Clinic Mercy HospitalComment on above:Performed By: #### 632-0 #### [facility] ([id number]) [address] [place] [address], [address] [place], [place] [address]Mpuaylnanzo distribution width Auto (RBC) [Ratio]on 10-08-2023 Erythrocyte distribution width (RBC) [Ratio]13.1 %11.0-15.0[facility]'S HospitalEstimated glomerular filtration rate (GFR) non- Americanon 59-94-4955HBK/1.73 sq M.predicted among non-blacks MDRD (S/P/Bld) [Vol rate/Area]44 mL/min/{1.73_m2}>=60[facility]'S HospitalHematocrit Auto (Bld) [Volume fraction]on 20-86-0326Jqrykkhwaz (Bld) [Volume fraction]43.0 %36.0-48.0[facility]'S HospitalHemoglobin [Mass/volume] in Bloodon 28-79-2802Rvexxpflkp (Bld) [Mass/Vol]14.1 g/dL12.0-16.0[facility] HospitalLaboratory - Chemistry and Chemistry - challengeon 10-08-2023 Albumin [Mass/Vol]3.5 g/dL3.4-5.0[facility] HospitalCalcium [Mass/Vol]9.7 mg/dL8.5-10.1FThe Surgical Hospital at SouthwoodsChloride [Moles/Vol] 96 mmol/L40-127DgcirfxxiAkron Children'S HospitalCO2 [Moles/Vol]18.7 mmol/L 21.0-32.0[facility] HospitalCreatinine [Mass/Vol]1.25 mg/dL 0.55-1.02[facility]S HospitalGFR/1.73 sq M.predicted MDRD (S/P/Bld) [Vol rate/Area]54 mL/min/{1.73_m2}>=60[facility]S HospitalGlucose [Mass/Vol]472 mg/oC84-830BprdarorfAkron Children'S HospitalMagnesium [Mass/Vol] 2.1 mg/dL1.8-2.4FThe Surgical Hospital at SouthwoodsPotassium [Moles/Vol]4.3 mmol/L 3.5-5.1FHolzer Medical Center – Jacksonodium [Moles/Vol]135 mmol/C684-618 [facility] HospitalUrate [Mass/Vol]13.4 mg/dL2.6-6.0[facility] HospitalUrea nitrogen [Mass/Vol]19.0 mg/dL7.0-18.0[facility] HospitalUrea nitrogen/Creatinine [Mass ratio]15.2 mg/mgAkron Children'S HospitalLaboratory - Urinalysison 10-67-7493Pbtgnue (U) [Mass/Vol]36.5 mg/dL<=11.9[facility]S HospitalLeukocytes [#/volume] corrected for nucleated erythrocytes in Blood by Automated counon 31-74-4980TBG corrected for nucl RBC Auto (Bld) [#/Vol]4.9 10 3/uL4.0-11.0[facility] Auto (RBC) [Entitic mass]on 81-25-1074BFE (RBC) [Entitic mass] 30.7 pg26.7-34.0[facility] CampusHC Auto (RBC) [Mass/Vol]on 22-95-1141AMWI (RBC) [Mass/Vol]32.8 g/dL29.9-35.2FTriHealth McCullough-Hyde Memorial HospitalV Auto (RBC) [Entitic vol]on 04-07-7456NFU (RBC) [Entitic vol]93.7 fL 81.0-99.0[facility] HospitalNo Panel Informationon - Hydroxy Vitamin D Lleox045.3 ng/mLAkron Children'S HospitalComment on above:<20 ng/mL Vit D piidkmetx25-<30 ng/mL Vit D hcykycvkyptb00-638 ng/mL Vit D sufficient>100 ng/mL Potential ToxicityParathyroid Hormone (Intact)8 pg/mL15-65 [facility] HospitalComment on above:Performed at: [facility] - [facility] [address] [id number] Director: Godwin Menjivar PhD, Phone: [phone] Level3.6 mg/dL2.6-4.7FThe Surgical Hospital at SouthwoodsUrine Random Yocmjhjfuh50.95 mg/dL20.00-300.00[facility]S HospitalPlatelet mean volume Auto (Bld) [Entitic vol]on 88-89-6030Sjkfzpzr mean volume (Bld) [Entitic vol]13.0 fL9.5-13.5FThe Surgical Hospital at Southwoods Platelets Auto (Bld) [#/Vol]on 67-19-6232Exrvdwmwk (Bld) [#/Vol]144 10 3/uL 150-450[facility]'S HospitalRBC Auto (Bld) [#/Vol]on 68-64-1802QPL (Bld) [#/Vol]4.59 10 6/uL4.20-5.40Bucyrus Community Hospitalerum or plasma anion gap determinationon 29-14-4075Rpepe gap [Moles/Vol]24.6 mmol/L [facility] HospitalUrine protein/creatinine ratioon 10-08-2023 Protein/Creatinine (U) [Ratio]0.94[facility] HospitalEGDon 61-67-5679GfpQzqrodRegency Hospital CompanyNo Panel InformationOrdered By: Jeni Bonilla on 18-18-4226ZbkEyuscnRegency Hospital CompanyAlbumin [Mass/volume] in Serum or Plasma by Bromocresol green (BCG) dye binding methoOrdered By: Anila Granados on 04-30-2023 Albumin BCG dye [Mass/Vol]3.8 g/dL3.5-5.7FThe Surgical Hospital at Southwoods Automated erythrocytes count in urine sediment (number/area)Ordered By: Anila Granados on 98-24-4615ZWJ Auto (Urine sed) [#/Area]5-9 [HPF]0-4FThe Surgical Hospital at SouthwoodsAutomated leukocytes count in urine sediment (number/area)Ordered By: Anila Granados on 05-19-6310JOQ Auto (Urine sed) [#/Area]1-2 [HPF]0-4FThe Surgical Hospital at SouthwoodsBilirubin Test strip Ql (U)Ordered By: Anila Granados on 42-36-8182Fkmxlfbmf Ql (U)NegativeNegativeAkron Children'S Hospital Calcium [Mass/volume] in Serum or PlasmaOrdered By: Anila Granados on 04-30-2023 Calcium [Mass/Vol]9.1 mg/dL8.6-10.3FThe Surgical Hospital at SouthwoodsCarbon dioxide, total [Moles/volume] in Serum or PlasmaOrdered By: Anila Granados on 75-80-6059CZ1 [Moles/Vol]31.5 mmol/L21.0-31.0[facility] Chloride [Moles/volume] in Serum or PlasmaOrdered By: Anila Granados on 04-30-2023 Chloride [Moles/Vol]102 mmol/V29-387WfmxbshtwAkron Children'S HospitalColor Auto (U)Ordered By: Anila Granados on 35-48-1634Sjovj (U)YellowYellowAkron Children'S HospitalCreatinine [Mass/volume] in Serum or PlasmaOrdered By: Anila Granados on 53-94-8508Rxmxirdhtp [Mass/Vol]1.53 mg/dL0.60-1.20[facility] HospitalCreatinine [Mass/volume] in UrineOrdered By: Anila Granados on 04-30-2023 Creatinine (U) [Mass/Vol]34.0 mg/dL11.0-20.0[facility] Erythrocyte distribution width Auto (RBC) [Ratio]Ordered By: Anila Granados on 68-52-4041Atdrvadcvag distribution width (RBC) [Ratio]14.9 %11.9-15.3FThe Surgical Hospital at SouthwoodsGlucose [Mass/volume] in Serum or PlasmaOrdered By: Anila Granados on 84-99-3490Ksfkhvn [Mass/Vol]244 mg/kL61-830PgsaexijsAkron Children'S HospitalComment on above:ADA recommended reference rangeRandom Glucose Reference Range is dependent on time and content of last meal. Glucose of more than 200 mg/dL in a nonstressed, ambulatory subject supports the diagnosisof Diabetes Mellitus.Hematocrit Auto (Bld) [Volume fraction]Ordered By: Anila Granados on 30-96-2685Nsqnthepuk (Bld) [Volume fraction]38.6 %34.0-46.4FThe Surgical Hospital at SouthwoodsHemoglobin [Mass/volume] in BloodOrdered By: Anila Granados on 04-97-6916Aywgvszvqu (Bld) [Mass/Vol]12.7 g/dL11.8-15.4FThe Surgical Hospital at SouthwoodsKetones Auto test strip (U) [Mass/Vol]Ordered By: Anila Granados on 79-83-7949Mdrtzbk (U) [Mass/Vol]NegativeNegativeAkron Children'S HospitalLaboratory - UrinalysisOrdered By: Anila Granados on 97-81-4169Ezpnjph casts LM Ql (Urine sed)None seen [LPF]0-8[facility]S HospitalLeukocytes [#/volume] corrected for nucleated erythrocytes in Blood by Automated coun Ordered By: Anila Graandos on 53-89-5703IUW corrected for nucl RBC Auto (Bld) [#/Vol]5.2 10*3/uL3.8-11.6FThe Surgical Hospital at SouthwoodsMCH Auto (RBC) [Entitic mass]Ordered By: Anila Granados on 76-16-8122XRR (RBC) [Entitic mass]31.6 pg24.7-34.3FThe Surgical Hospital at SouthwoodsMCHC Auto (RBC) [Mass/Vol]Ordered By: Anila Granados on 52-11-0303ICHS (RBC) [Mass/Vol]32.8 g/dL32.0-35.0[facility]S HospitalMCV Auto (RBC) [Entitic vol]Ordered By: Anila Granados on 37-42-4210OIW (RBC) [Entitic vol]96.3 wB65-668XicqdivxuAkron Children'S Hospital Magnesium [Mass/volume] in Serum or PlasmaOrdered By: Anila Granados on 04-30-2023 Magnesium [Mass/Vol]1.9 mg/dL1.9-2.7FThe Surgical Hospital at SouthwoodsNitrite Test strip Ql (U)Ordered By: Anila Granados on 22-01-2920Jfoquct Ql (U)Negative NegativeAkron Children'S HospitalNo Panel InformationOrdered By: Anila Granados on 95-41-2657Njglgxqrv GFR (CKD-EPI)40.189 mL/MinAkron Children'S HospitalPharmacy Creatinine Clearance (ChemN/[facility] HospitalParathyrin.intact [Mass/volume] in Serum or PlasmaOrdered By: Anila Granados on 36-07-0477Pdqsxbicse.intact [Mass/Vol]19.7 pg/gE02-32KugmznjipAkron Children'S HospitalPhosphate [Mass/volume] in Serum or PlasmaOrdered By: Anila Granados on 06-09-1311Pdbqdruoa [Mass/Vol]4.1 mg/dL2.5-4.5FThe Surgical Hospital at SouthwoodsPlatelet mean volume Auto (Bld) [Entitic vol]Ordered By: Anila Granados on 57-42-5760Cmwzfzbn mean volume (Bld) [Entitic vol]10.8 fL6.3-10.7FThe Surgical Hospital at SouthwoodsPlatelets Auto (Bld) [#/Vol]Ordered By: Anila Granados on 15-14-9468Aqmwztmse (Bld) [#/Vol]164 10*3/cL062-295EdpxsmfqkAkron Children'S HospitalPotassium [Moles/volume] in Serum or PlasmaOrdered By: Anila Granados on 27-05-6877Gbgvrggyu [Moles/Vol]4.0 mmol/L3.5-5.1FThe Surgical Hospital at SouthwoodsProtein Auto test strip (U) [Mass/Vol]Ordered By: Anila Smithdir on 67-53-3691Rvynrxb (U) [Mass/Vol]NegativeNegativeAkron Children'S HospitalProtein [Mass/volume] in UrineOrdered By: Anila Roberta on 21-35-7395Fvmandg (U) [Mass/Vol]4 mg/dL0-9[facility]S HospitalRBC Auto (Bld) [#/Vol] Ordered By: Anila Roberta on 50-62-8761RSV (Bld) [#/Vol]4.01 10*6/uL3.60-5.00 [facility] Community Hospitalerum or plasma anion gap determinationOrdered By: Anila Granados on 66-58-0672Vcyin gap [Moles/Vol]12.5 mmol/L6.0-15.0[facility] Community Hospitalodium [Moles/volume] in Serum or PlasmaOrdered By: Anila Granados on 89-53-0978Mvqmea [Moles/Vol]142 mmol/B462-919MlldgraraBucyrus Community Hospitalpecific gravity Auto test strip (U) [Rel density]Ordered By: Anila Granados on 96-45-9817Dsspknns gravity (U) [Rel density]1.0101.001-1.030 [facility] Community Hospitalquamous epithelial cells detection in urine sediment by light microscopyOrdered By: Anila Granados on 91-13-0277Dgkegoduvu cells.squamous LM Ql (Urine sed)0-1 [HPF]0-2FThe Surgical Hospital at Southwoods Urate [Mass/volume] in Serum or PlasmaOrdered By: Anila Granados on 79-69-9614Namww [Mass/Vol]5.8 mg/dL2.3-6.6FThe Surgical Hospital at SouthwoodsUrea nitrogen [Mass/volume] in Serum or PlasmaOrdered By: Anila Granados on 05-62-1791Wkjd nitrogen [Mass/Vol]46 mg/dL7-25[facility]'S HospitalUrine bacteria detection by automated methodOrdered By: Anila Granados on 37-25-1530Esmtujvf Auto Ql (U)None seenNone SeenAkron Children'S HospitalUrine clarity by refractometry automatedOrdered By: Anila Granados on 46-17-2552Jcnvnjg Refractometry automated (U)ClearClearFThe Surgical Hospital at SouthwoodsUrine glucose measurement by automated test strip (mass/volume)Ordered By: Anila Granados on 61-58-2683Xlcksgv Auto test strip (U) [Mass/Vol]Normal mg/dLNoOhio Valley HospitalUrine hemoglobin detection by automated test stripOrdered By: Anila Granados on 48-79-7567Vybihddqpg Auto test strip Ql (U)NegativeNegative [facility] HospitalUrine leukocyte esterase detection by automated test stripOrdered By: Anila Granados on 60-27-1430Sypkwdvrg esterase Auto test strip Ql (U)1+NegativeAkron Children'S HospitalUrine protein/creatinine ratioOrdered By: Anila Granados on 44-57-9912Hvrwsjn/Creatinine (U) [Ratio]118 mg/g{Cre}0-200[facility]S HospitalUrobilinogen Auto test strip (U) [Mass/Vol]Ordered By: Anila Granados on 04-50-4178Kojacsxtkuii (U) [Mass/Vol]Normal mg/dLSt. John of God HospitalVitamin D+Metabolites [Mass/volume] in Serum or PlasmaOrdered By: Anila Granados on 34-93-7306Pdzpqkg D+Metabolites [Mass/Vol]68.6 ng/nT74-676YhpxbokzmAkron Children'S HospitalComment on above: VITAMIN D STATUS 25(OH)VITAMIN D RANGE (ng/mL) Deficient <20 Insufficient 20 to <75Lwckkvgtho60 to 100Reference: Amilcar MF,Milo NC, Adrián TELLEZ, et al. Evaluation,treatment, and prevention of vitamin D deficiency; an Endocrine Society clinical practice guideline. JCEM. 2010; 96(7):1911-30.pH Auto test strip (U)Ordered By: Anila Granados on 06-42-0863yR (U)6.5 [pH]5.0-9.0[facility]S HospitalPTH INTACTon 86-46-3621OHD, Vuojvo56 pg/mLCritically low 15-65The [facility] - AndersonComment on above:Performed By: #### INSULIN #### [facility] [address] [place] [address] Dr. Jose MckinneyHEMOGRAM AND PLATELon 93-08-9462Hakhtidzwi (Bld) [Volume fraction]38.7 %Hbclov33.0-48.0The [facility] HospitalComment on above:Performed By: #### URTPCR #### [facility] [address] [place] [address] Dr. Jose MckinneyHemoglobin (Bld) [Mass/Vol]12.7 g/bQUlxfdt98.0-16.0The [facility] - AndersonComment on above:Performed By: #### URTPCR #### [facility] [address] [place] [address] Dr. Jose Harrington (RBC) [Entitic mass]30.5 stBpxupk54.7-34.0The [facility] - AndersonComment on above:Performed By: #### URTPCR #### [facility] [address] [place] [address] Dr. Jose Harrington (RBC) [Mass/Vol]32.8 g/sIXdgntk70.9-35.2The [facility] - AndersonComment on above:Performed By: #### URTPCR #### [facility] [address] [place] [address] Dr. Jose Harrington (RBC) [Entitic vol]92.8 fSNbzczf12.0-99.0The [facility] - AndersonComment on above:Performed By: #### URTPCR #### [facility] [address] [place] [address] Dr. Jose MckinneyPLT223 103/zqLbswbg388-424Qne [facility] - AndersonComment on above: Performed By: #### URTPCR #### [facility] [address] [place] [address] Dr. Jose MckinneyRBC4.17 106/ulCritically low4.20-5.40The [facility] - AndersonComment on above:Performed By: #### URTPCR #### [facility] [address] [place] [address] Dr. Joes MckinneyWBC7.0 103/ulNormal4.0-11.0The [facility] - AndersonComment on above: Performed By: #### URTPCR #### [facility] [address] [place] [address] Dr. Jose MckinneyMAGNESIUMon 77-08-5775Yzbtiigtk [Mass/Vol]1.9 mg/dLNormal1.8-2.4 The [facility] - AndersonComment on above:Performed By: #### URIC, RENAL, MG #### [facility] [address] [place] [address] Dr. Jose MckinneyRENAL FUNCTION PANELon 74-77-1529Mzqgzkr [Mass/Vol]3.6 g/dLNormal 3.4-5.0The [facility] - AndersonComment on above:Performed By: #### URIC, RENAL, MG #### [facility] [address] [place] [address] Dr. Jose MckinneyCalcium [Mass/Vol]9.3 mg/dLNormal8.5-10.1The [facility] Comment on above:Performed By: #### URIC, RENAL, MG #### [facility] [address] [place] [address] Dr. Jose MckinneyChloride [Moles/Vol]104 mmol/MWboztr32-506Sax [facility] Comment on above:Performed By: #### URIC, RENAL, MG #### [facility] [address] [place] [address] Dr. Jose MckinneyCO2 [Moles/Vol]28.3 mmol/JEhuewr88.0-32.0The [facility] Comment on above:Performed By: #### URIC, RENAL, MG #### [facility] [address] [place] [address] Dr. Jose MckinneyCreatinine [Mass/Vol]1.34 mg/dLCritically high0.55-1.02The [facility] - AndersonComment on above:Performed By: #### URIC, RENAL, MG #### [facility] [address] [place] [address] Dr. Jose MarkGFR-AF COXVHPNA32 mL/min/1.76v2Zparcsbnup low>=60The [facility] - AndersonComment on above:Performed By: #### URIC, RENAL, MG #### [facility] [address] [place] [address] Dr. Jose MarkGFR-NON AF RZCTATSA46 mL/min/1.80c4Ebpeuflfjt low>=60The [facility] - AndersonComment on above:Performed By: #### URIC, RENAL, MG #### [facility] [address] [place] [address] Dr. Jose MckinneyGlucose [Mass/Vol]226 mg/dLCritically qjod58-367Dwc [facility] - AndersonComment on above:Performed By: #### URIC, RENAL, MG #### [facility] [address] [place] [address] Dr. Jose MckinneyPhosphate [Mass/Vol]4.6 mg/dLNormal2.6-4.7The [facility] Comment on above:Performed By: #### URIC, RENAL, MG #### [facility] [address] [place] [address] Dr. Jose MckinneyPotassium [Moles/Vol]4.4 mmol/LNormal3.5-5.1[facility] Comment on above:Performed By: #### URIC, RENAL, MG #### [facility] [address] [place] [address] Dr. Jose MckinneySodium [Moles/Vol]138 mmol/CIkwuug608-572Zyw [facility] Comment on above:Performed By: #### URIC, RENAL, MG #### [facility] [address] [place] [address] Dr. Jose MckinneyUrea nitrogen [Mass/Vol]27.0 mg/dLCritically high7.0-18.0The City Hospitalment on above:Performed By: #### URIC, RENAL, MG #### [facility] [address] [address] [address] Jose Cruz RANDOM W/MICROSCOPICon 94-13-8503KTAVDGUUONMX SEENNormalNONE SEENAdena Health SystemComselect specialty hospital-flint on above:Performed By: #### UAMIC #### [facility] [address] [address] [address] Jose MckinneyBilirubin Ql (U)NegativeNormalNEGATIVEAdena Health System Comment on above:Performed By: #### UAMIC #### [facility] [address] [address] [address] Jose MckinneyCASTNONE SEENNormalNONE SEENAdena Health SystemComment on above:Performed By: #### UAMIC #### [facility] [address] [address] [address] Jose MckinneyClarity (U)CLEARNormalCLEARAdena Health SystemComment on above: Performed By: #### UAMIC #### [facility] [address] [address] [address] Jose MckinneyColor (U)YELLOWNormalYELLOWAdena Health SystemComment on above: Performed By: #### UAMIC #### [facility] [address] [address] [address] Jose McknineyCrystals LM Nom (Urine sed)NONE SEENNormalNONE SEENAdena Health SystemComselect specialty hospital-flint on above:Performed By: #### UAMIC #### [facility] [address] [address] [address] Garcia ChangEpithelial cells LM Ql (Urine sed)NONE SEENNormalNONE SEEN /RARE [facility] SystemComselect specialty hospital-flint on above:Performed By: #### UAMIC #### [facility] [address] [address] [address] Jose MckinneyGlucose Ql (U)250 mg/dlAbnoalNEGGood Samaritan Hospital Comment on above:Performed By: #### UAMIC #### [facility] [address] [address] [address] Jose MckinneyHemoglobin Ql (U)NegativeNormalNEGGood Samaritan Hospital Comment on above:Performed By: #### UAMIC #### [facility] [address] [address] [address] Jose Batista Ql (U)NegativeNormalNEGATIVEThe [facility] - AndersonComment on above:Performed By: #### UAMIC #### [facility] [address] [address] [address] Jose MckinneyLEUKOCYTESNegativeNormalNEGATIVEThe [facility] - AndersonComment on above:Performed By: #### UAMIC #### [facility] [address] [address] [address] Jose DuarteCOUSNONSharlene SEENNormalNONE SEENAdena Health SystemComment on above:Performed By: #### UAMIC #### [facility] [address] [place] [address] Dr. Jose Elamtrshayy Ql (U)NegativeNormalNEGATIVEAdena Health SystemComment on above:Performed By: #### UAMIC #### [facility] [address] [place] [address] Dr. Jose MckinneypH (U)6.5 [pH]Normal5-9Adena Health SystemComment on above: Performed By: #### UAMIC #### [facility] [address] [place] [address] Dr. Jose MckinneyPplslCBX0-6Uvlzrl5-5Ofe Bellevue HospitalComment on above:Performed By: #### UAMIC #### [facility] [address] [place] [address] Dr. Jose MckinneySPEC GRAVITY1.909Kgbpyv3.005-<=1.025The [facility] - AndersonComment on above:Performed By: #### UAMIC #### [facility] [address] [place] [address] Dr. Jose Cruz PROTEINNegativeNormalNEGATIVE/ TRACEThe [facility] Comment on above:Performed By: #### UAMIC #### [facility] [address] [place] [address] Dr. Jose Friasbilinogen Qn (U)0.2 {Betsy'U}/dLNormal0.2 - 1.0The [facility] - AndersonComment on above:Performed By: #### UAMIC #### [facility] [address] [place] [address] Dr. Jose Vazquez SEENNormalNONE SEENAdena Health SystemComment on above: Performed By: #### UAMIC #### [facility] [address] [place] [address] Dr. Jose MckinneyURIC ACID SERUMon 39-35-3933Srwnh [Mass/Vol]4.1 mg/dLNormal 2.6-6.0The [facility] - AndersonComment on above:Performed By: #### URIC, RENAL, MG #### [facility] [address] [place] [address] Dr. Jose Smiley T PROTEIN CREAT RATIOon 49-59-5572Qfahwhz (U) [Mass/Vol] 13.5 mg/dLCritically high<=12.0The [facility] AndersonComment on above:Performed By: #### URTPCR #### [facility] [address] [place] [address] Dr. Jose Bhagat PROT CREAT RAT0.16[facility] Methodist HospitalComment on above: Performed By: #### URTPCR #### [facility] [address] [place] [address] Dr. Jose Smiley CREAT83.00 mg/vDPlgjco33.00-300.00The [facility] Comment on above:Performed By: #### URTPCR #### [facility] [address] [place] [address] Dr. Jose MckinneyVITAMIN D 25 OHon 90-43-8997BNV D 25-OH54.4 ng/mLNormalThe [facility] AndersonComment on above:Performed By: #### CBC #### [facility] [address] [place] [address] Dr. Jose Pedraza D RANGESSEE BELOWOhioHealth Riverside Methodist HospitalComment on above: Result Comment: <20 ng/mL Vit D deficient 20 - <30 ng/mL Vit D insufficient 30 - 100 ng/mL Vit D sufficient >100 ng/mL Potential ToxicityPerformed By: #### CBC #### [facility] [address] [place] [address] Dr. Jose MckinneyCovid-19 PCR ([facility])on 62-55-7072CAFE-CoV-2 (COVID-19) RNA CHILO+probe Ql (Unsp spec)Not detectedNormalNOT DETECTEDThe [facility] Comment on above:Result Comment: This test is not yet approved or cleared by the [place] FDA. When there are no FDA-approved or cleared tests available, and other criteria are met, FDA can make tests available under an emergency access mechanism called an Emergency Use Authorization (EUA). The EUA for this test is supported by the Proposal Specialist of Health and Human Service's (HHS's) declaration that circumstances exist to justify the emergency use of in vitro diagnostics for the detection and/or diagnosis of the virus that causes COVID- 19. This EUA will remain in effect (meaning [...] of clinical signs and symptoms consistent with SARS-CoV-2.Performed By: #### CBC #### [facility] [address] [place] [address] Dr. Jose MckinneyINFLMERLENENZA A AND B AGon 29-68-7792EPCBQIILNAFZUFirelands Regional Medical Center South CampusComment on above:Result Comment: Negative for Flu A protein angiten. Infection due to Flu A cannot be ruled out. FluA angiten in the sample may be below the detection limit of the test.Performed By: #### CBC #### [facility] [address] [place] [address] Dr. Jose MckinneyINFLUBNEGHSShelby Memorial HospitalComselect specialty hospital-flint on above: Result Comment: Negative for Flu B protein antigen. Infection due to Flu B cannot be ruled out. FluB antigen in the sample may be below the detection limit of the test.Performed By: #### CBC #### [facility] [address] [address] [address] Jose Nickerson AGNegativeNormalNEGATIVE SEE COMMENTThe [facility] on above:Performed By: #### CBC #### [facility] [address] [address] [address] Jose Mae AGNegativeNormalNEGATIVE SEE COMMENTThe [facility] AndersonComment on above:Performed By: #### CBC #### [facility] [address] [place] [address] Dr. Jose MckinneyINTERNAL CONTROLSWithin Normal LimitsNormalWithin Normal Limits The [facility] - AndersonComment on above:Performed By: #### CBC #### [facility] [address] [place] [address] Dr. Jose MckinneyINSULINon 70-39-7911Psrtktf965.0 uIU/mLCritically high2.6-24.9The [facility] AndersonComment on above:Performed By: #### INSULIN #### [facility] [address] [place] [address] Dr. Jose MckinneyPTH INTACTon 03-34-8689IQP, Ilckla21 pg/mLCritically hsx50-63Ond [facility] AndersonComment on above:Performed By: #### CBC #### [facility] [address] [place] [address] Dr. Jose MckinneyT4, T3U, FTI LABCORPon 84-73-5229Coxy Thyroxine Index2.3Normal 1.2-4.9The [facility] AndersonComment on above:Performed By: #### CBC #### [facility] [address] [address] [address] Jose MckinneyT3 Mgpvvh28 %Critically gky41-57Dbt [facility] AndersonComment on above:Performed By: #### CBC #### [facility] [address] [place] [address] Dr. Jose Durán4 [Mass/Vol]10.2 ug/dLNormal4.5-12.0The Reynolds HospitalComment on above:Performed By: #### CBC #### [facility] [address] [address] [address] Jose Foy 25-OH LABCORPon 70-29-1582Sdxzeot D, 25-Dlmevaa04.3 ng/mL Lkukcd61.0-100.0The [facility] AndersonComselect specialty hospital-flint on above:Result Comment: Vitamin D deficiency has been defined by the [place] of Medicine and an Endocrine Society practice guideline as a level of serum 25-OH vitamin D less than 20 ng/mL (1,2). The Endocrine Society went on to further define vitamin D insufficiency as a level between 21 and 29 ng/mL (2). 1. IOM ([place] of Medicine). 2010. Dietary reference intakes for calcium and D. [place]: The National Academies Press. 2. Amilcar JIMÉNEZ, Milo PENA, Adrián TELLEZ, et al. Evaluation, treatment, and prevention of vitamin D deficiency: an Endocrine Society clinical practice guideline. JCEM. 2010; 96(7):1911-30.Performed By: #### CBC #### [facility] [address] [place] [address] Dr. Jose MunozC AUTO DIFFon 39-23-9182XGPO #0.0 103/ulNormal0.0-0.1The [facility] on above:Performed By: #### URTPCR #### [facility] [address] [address] [address] Jose MckinneyBasophils/100 WBC (Bld)0.5 %Normal0.2-2.0The [facility] Comment on above:Performed By: #### URTPCR #### [facility] [address] [address] [address] Jose Saldivar #0.5 103/ulNormal0.0-0.7The [facility] AndersonComment on above: Performed By: #### URTPCR #### [facility] [address] [address] [address] Jose Markosinophils/100 WBC (Bld)8.0 %Critically high0.9-7.0The Tomas HospitalComment on above:Performed By: #### URTPCR #### [facility] [address] [place] [address] Dr. Jose Markrythrocyte distribution width (RBC) [Ratio]13.6 %Icreaj01.0-15.0 The [facility] AndersonComment on above:Performed By: #### URTPCR #### [facility] [address] [place] [address] Dr. Jose MckinneyHematocrit (Bld) [Volume fraction]42.5 %Nqcguk51.0-48.0The [facility] AndersonComment on above:Performed By: #### URTPCR #### [facility] [address] [place] [address] Dr. Jose MckinneyHemoglobin (Bld) [Mass/Vol]13.8 g/tWJdltzw94.0-16.0The [facility] AndersonComment on above:Performed By: #### URTPCR #### [facility] [address] [place] [address] Dr. Jose Trejo #0.02 10e3/ulNormal0.00-0.03The [facility] AndersonComment on above:Performed By: #### URTPCR #### [facility] [address] [place] [address] Dr. oJse Trejo %0.3 %Normal0.0-0.5The [facility] AndersonComselect specialty hospital-[facility] on above: Performed By: #### URTPCR #### [facility] [address] [place] [address] Dr. Jose MondragonH #1.5 103/ulNormal1.2-3.8The [facility] AndersonComment on above:Performed By: #### URTPCR #### [facility] [address] [place] [address] Dr. Jose Lionmphocytes/100 WBC (Bld)25.3 %Wowajg02.5-60.0The [facility] AndersonComment on above:Performed By: #### URTPCR #### [facility] [address] [place] [address] Dr. Jose Leigh DIFF REQNONormalThe [facility] AndersonComment on above: Performed By: #### URTPCR #### [facility] [address] [place] [address] Dr. Jose Harrington (RBC) [Entitic mass]30.1 tcDmseri84.7-34.0The [facility] AndersonComment on above:Performed By: #### URTPCR #### [facility] [address] [place] [address] Dr. Jose Harrington (RBC) [Mass/Vol]32.5 g/uAMkunqq44.9-35.2The [facility] AndersonComment on above:Performed By: #### URTPCR #### [facility] [address] [place] [address] Dr. Jose Harrington (RBC) [Entitic vol]92.6 yBVhvajy80.0-99.0The [facility] AndersonComment on above:Performed By: #### URTPCR #### [facility] [address] [place] [address] Dr. Jose Acuna #0.4 103/ulNormal0.3-0.8The [facility] AndersonComment on above:Performed By: #### URTPCR #### [facility] [address] [place] [address] Dr. Jose Buchananocytes/100 WBC (Bld)6.4 %Normal1.7-12.0The [facility] Comment on above:Performed By: #### URTPCR #### [facility] [address] [place] [address] Dr. Jose Lan #3.6 103/ulNormal1.4-6.5The [facility] AndersonComment on above:Performed By: #### URTPCR #### [facility] [address] [place] [address] Dr. Jose Parsonsutrophils/100 WBC (Bld)59.5 %Swcdqc26.0-75.0The [facility] AndersonComment on above:Performed By: #### URTPCR #### [facility] [address] [address] [address] Jose MckinneyPlatelet mean volume (Bld) [Entitic vol]11.8 fLNormal9.5-13.5The [facility] AndersonComment on above:Performed By: #### URTPCR #### [facility] [address] [place] [address] Dr. Jose MckinneyPLT175 103/ofRgyywh164-521Olw [facility] AndersonComselect [facility] on above: Performed By: #### URTPCR #### [facility] [address] [place] [address] Dr. Jose MckinneyRBC4.59 106/ulNormal4.20-5.40The [facility] AndersonComselect [facility] on above:Performed By: #### URTPCR #### [facility] [address] [place] [address] Dr. Jose MckinneyWBC6.1 103/ulNormal4.0-11.0The [facility] AndersonCom[facility] on above: Performed By: #### URTPCR #### [facility] [address] [place] [address] Dr. Jose MckinneyGLYCOHEMOGLOBIN A1Con 92-96-1187TVQ RECOMMENDATIONSEE BELOWNormal [facility] Health SystemComselect specialty hospital-flint on above:Result Comment: ADA RECOMMENDED LIMIT 4.0 - 6.0 ADA THERAPEUTIC TARGET < 7.0 ACTION SUGGESTED > 7.0Performed By: #### URTPCR #### [facility] [address] [place] [address] Dr. Jose MckinneyGlucose [Mass/Vol]209 mg/dLNormalThe [facility] AndersonComselect [facility] hospital-[facility] on above:Performed By: #### URTPCR #### [facility] [address] [place] [address] Dr. Jose MckinneyHbA1c (Bld) [Mass fraction]8.9 %Critically high4.5-6.2The [facility] on above:Performed By: #### URTPCR #### [facility] [address] [place] [address] Dr. Jose Baeza 07-86-7370Hklx [Mass/Vol]55.0 ug/jHYppnyl11.0-170.0The [facility] AndersonComment on above:Performed By: #### CBC #### [facility] [address] [place] [address] Dr. Jose Blackwell PROFILEon 38-57-3924JUWU-HDL RATIO NORMSEE [facility] Health SystemComment on above:Result Comment: 3.3 - 4.4 LOW RISK 4.4 - 7.1 AVERAGE RISK 7.1 - 11.0 MODERATE RISK >11.0 HIGH RISKPerformed By: #### TSH, CMP, LIPID #### [facility] [address] [place] [address] Dr. Jose Bajwaesterol [Mass/Vol]215 mg/dLCritically high<=200The [facility] AndersonComselect [facility] on above:Performed By: #### TSH, CMP, LIPID #### [facility] [address] [place] [address] Dr. Jose Bajwaesterol in HDL [Mass/Vol]32 mg/dLCritically itk69-61Ral [facility] AndersonCom[facility] on above:Performed By: #### TSH, CMP, LIPID #### [facility] [address] [place] [address] Dr. Jose Bajwaesterol in LDL [Mass/Vol]118.4 mg/dLOhioHealth Riverside Methodist HospitalComselect specialty hospital-flint on above:Performed By: #### TSH, CMP, LIPID #### [facility] [address] [place] [address] Dr. Jose Wells.total/Cholesterol in HDL [Mass ratio]6.7 {ratio} NormalThe [facility] AndersonComselect [facility] hospital-[facility] on above:Performed By: #### TSH, CMP, LIPID #### [facility] [address] [place] [address] Dr. Jose Thompson NORMAL> or = 60 mg/dl - LOW CARDIOVASCULAR RISK <40 mg/dl - HIGH CARDIOVASCULAR RISKOhioHealth Riverside Methodist HospitalComment on above:Performed By: #### TSH, CMP, LIPID #### [facility] [address] [place] [address] Dr. Jose MckinneyLDL CALC NORMALSEE BELOWOhioHealth Riverside Methodist HospitalComment on above:Result Comment: <100 mg/dl OPTIMAL 100 - 129 mg/dl NEAR OR ABOVE OPTIMAL 130 - 159 mg/dl BORDERLINE HIGH 160 - 189 mg/dl HIGH >190 mg/dl VERY HIGH Performed By: #### TSH, CMP, LIPID #### [facility] [address] [place] [address] Dr. Jose MckinneyTriglyceride [Mass/Vol]323 mg/dLCritically high<=150The City Hospitalment on above:Performed By: #### TSH, CMP, LIPID #### [facility] [address] [place] [address] Dr. Jose MckinneyVLDL CALC64.6 mg/dLOhioHealth Riverside Methodist HospitalComment on above: Performed By: #### TSH, CMP, LIPID #### [facility] [address] [place] [address] Dr. Jose MckinneyMAGNESIUMon 89-98-0447Atsjocwpw [Mass/Vol]1.8 mg/dLNormal1.8-2.4 The [facility] AndersonComment on above:Performed By: #### URTPCR #### [facility] [address] [place] [address] Dr. Jose MckinneyPHOSPHORUSon 11-90-6642Feojekvra [Mass/Vol]4.1 mg/dLNormal2.6-4.7 The [facility] on above:Performed By: #### URTPCR #### [facility] [address] [place] [address] Dr. Jose MckinneyPROF 14(COMP METB)on 62-84-6144Sijxcnb [Mass/Vol]3.6 g/dLNormal 3.4-5.0The [facility] on above:Performed By: #### TSH, CMP, LIPID #### [facility] [address] [place] [address] Dr. Jose MckinneyAlbumin/Globulin [Mass ratio]0.9 {ratio}NormalThe Tomas HospitalComment on above:Performed By: #### TSH, CMP, LIPID #### [facility] [address] [address] [address] Jose Vargas [Catalytic activity/Vol]70 U/EFiwkfg43-896Ylg [facility] AndersonComment on above:Performed By: #### TSH, CMP, LIPID #### [facility] [address] [address] [address] Jose Govea [Catalytic activity/Vol]38 U/EVwupwz66-05Eky [facility] AndersonComment on above:Performed By: #### TSH, CMP, LIPID #### [facility] [address] [address] [address] Jose Lesteron gap [Moles/Vol]11.9 mmol/LNormalThe [facility] Comment on above:Performed By: #### TSH, CMP, LIPID #### [facility] [address] [address] [address] Jose MckinneyAST [Catalytic activity/Vol]19 U/ACpdtxn02-46Gxf City Hospitalment on above:Performed By: #### TSH, CMP, LIPID #### [facility] [address] [address] [address] Jose MckinneyBilirubin [Mass/Vol]0.3 mg/dLNormal0.2-1.0[facility] Comment on above:Performed By: #### TSH, CMP, LIPID #### [facility] [address] [address] [address] Jose MckinneyCalcium [Mass/Vol]9.3 mg/dLNormal8.5-10.1[facility] Comment on above:Performed By: #### TSH, CMP, LIPID #### [facility] [address] [place] [address] Dr. Jose MckinneyChloride [Moles/Vol]104 mmol/BFjeqag33-711Jvz [facility] Comment on above:Performed By: #### TSH, CMP, LIPID #### [facility] [address] [address] [address] Jose MckinneyCO2 [Moles/Vol]29.1 mmol/KZetzmh74.0-32.0The [facility] Comment on above:Performed By: #### TSH, CMP, LIPID #### [facility] [address] [place] [address] Dr. Jose MckinneyCreatinine [Mass/Vol]1.31 mg/dLCritically high0.55-1.02A[facility] Health SystemComment on above:Performed By: #### TSH, CMP, LIPID #### [facility] [address] [place] [address] Dr. Garcia ChangEGFR-AF DYVUTTJY44 mL/min/1.35m5Towexsexqm low>=60The [facility] AndersonComment on above:Performed By: #### TSH, CMP, LIPID #### [facility] [address] [place] [address] Dr. Jose MarkGFR-NON AF XOXSDLPY57 mL/min/1.16e8Wejhprhsct low>=60The [facility] AndersonComment on above:Performed By: #### TSH, CMP, LIPID #### [facility] [address] [place] [address] Dr. Jose MckinneyGlobulin (S) [Mass/Vol]3.9 g/dLNormalThe [facility] AndersonComment on above:Performed By: #### TSH, CMP, LIPID #### [facility] [address] [place] [address] Dr. Jose MckinneyGlucose [Mass/Vol]185 mg/dLCritically etvp41-289Xgm [facility] AndersonComment on above:Performed By: #### TSH, CMP, LIPID #### [facility] [address] [place] [address] Dr. Jose MckinneyPotassium [Moles/Vol]4.0 mmol/LNormal3.5-5.1The [facility] Comment on above:Performed By: #### TSH, CMP, LIPID #### [facility] [address] [place] [address] Dr. Jose MckinneyProtein [Mass/Vol]7.5 g/dLNormal6.4-8.2The [facility] Comment on above:Performed By: #### TSH, CMP, LIPID #### [facility] [address] [address] [address] Jose Castellanosdium [Moles/Vol]141 mmol/ZHuctdf798-450Kej [facility] Comment on above:Performed By: #### TSH, CMP, LIPID #### [facility] [address] [address] [address] Jose Wilson nitrogen [Mass/Vol]20.0 mg/dLCritically high7.0-18.0The [facility] AndersonComment on above:Performed By: #### TSH, CMP, LIPID #### [facility] [address] [address] [address] Jose Wilson nitrogen/Creatinine [Mass ratio]15.3 mg/mgNoalThRegency Hospital Cleveland EastComment on above:Performed By: #### TSH, CMP, LIPID #### [facility] [address] [place] [address] Dr. Jose Mcarthur 21-96-5018ELL4.011 uIU/mLNormal0.358-3.740The [facility] - AndersonComment on above:Performed By: #### TSH, CMP, LIPID #### [facility] [address] [place] [address] Dr. Jose Cruz RANDOM W/MICROSCOPICon 46-82-3458QWOUXFGMMHAC SEENNormalNONE SEENAdena Health SystemComment on above:Performed By: #### URTPCR #### [facility] [address] [place] [address] Dr. Jose Keenanirubin Ql (U)NegativeNormalNEGATIVEAdena Health System Comment on above:Performed By: #### URTPCR #### [facility] [address] [place] [address] Dr. Jose MckinneyCASTNONSharlene SEENNormalNONE SEENAdena Health SystemComment on above:Performed By: #### URTPCR #### [facility] [address] [place] [address] Dr. Jose MckinneyClarity (U)CLEARNormalCLEARThe [facility] AndersonComment on above: Performed By: #### URTPCR #### [facility] [address] [address] [address] Jose Riley (U)LT. YELLOWNormalYELLOWAdena Health SystemComselect specialty hospital-flint on above:Performed By: #### URTPCR #### [facility] [address] [address] [address] Jose MckinneyCrystals LM Nom (Urine sed)NONE SEENNormalNONE SEENAdena Health SystemComment on above:Performed By: #### URTPCR #### [facility] [address] [address] [address] Garcia ChangEpithelial cells LM Ql (Urine sed)RARENormalNONE SEEN /RAREAdena Health SystemComselect specialty hospital-flint on above:Performed By: #### URTPCR #### [facility] [address] [place] [address] Dr. Jose MckinneyGlucose Ql (U)NegativeNormalNEGATIVEAdena Health SystemComment on above:Performed By: #### URTPCR #### [facility] [address] [place] [address] Dr. Jose MckinneyHemoglobin Ql (U)NegativeNormalNEGATIVECleveland Clinic [facility]ron General on above:Performed By: #### URTPCR #### [facility] [address] [place] [address] Dr. Jose MckinneyKetones Ql (U)NegativeNormalNEGATIVEAdena Health SystemComment on above:Performed By: #### URTPCR #### [facility] [address] [place] [address] Dr. Jose MckinneyLEUKOCYTESNegativeNormalNEGATIVEAdena Health SystemComselect specialty hospital-[facility] on above:Performed By: #### URTPCR #### [facility] [address] [place] [address] Dr. Jose MckinneyMUCOUSNONE SEENNormalNONE SEENAdena Health SystemComselect specialty hospital-[place] on above:Performed By: #### URTPCR #### [facility] [address] [place] [address] Dr. Jsoe MckinneyNitrite Ql (U)NegativeNormalNEGATIVEThe [facility] AndersonComment on above:Performed By: #### URTPCR #### [facility] [address] [place] [address] Dr. Jose MckinneypH (U)6.0 [pH]Normal5-9The [facility] AndersonComment on above: Performed By: #### URTPCR #### [facility] [address] [place] [address] Dr. Jose MckinneyDjcgbMEV0-0Ewymrp9-8Glg [facility] AndersonComment on above:Performed By: #### URTPCR #### [facility] [address] [place] [address] Dr. Jose MckinneySPEC GRAVITY1.352Vsbntu9.005-<=1.025The [facility] AndersonComment on above:Performed By: #### URTPCR #### [facility] [address] [place] [address] Dr. Jose Cruz PROTEINNegativeNormalNEGATIVE/ TRACEThe [facility] Comment on above:Performed By: #### URTPCR #### [facility] [address] [place] [address] Dr. Jose Friasbilalejandrogen Qn (U)0.2 {Betsy'U}/dLNormal0.2 - 1.0The [facility] AndersonComment on above:Performed By: #### URTPCR #### [facility] [address] [place] [address] Dr. Jose MckinneyWBC0-2AbnormalNONE SEENThe [facility] AndersonComment on above: Performed By: #### URTPCR #### [facility] [address] [place] [address] Dr. Jose MckinneyURIC ACID SERUMon 12-66-8740Mecjo [Mass/Vol]6.7 mg/dLCritically high2.6-6.0The [facility] AndersonComment on above:Performed By: #### URTPCR #### [facility] [address] [place] [address] Dr. Jose Smiley T PROTEIN CREAT RATIOon 01-68-3130Ytxsuup (U) [Mass/Vol]6.0 mg/dLNormal<=12.0The [facility] AndersonComment on above:Performed By: #### INSULIN #### [facility] [address] [place] [address] Dr. Jose Bhagat PROT CREAT RAT0.19NormalThe [facility] AndersonComment on above: Performed By: #### INSULIN #### [facility] [address] [place] [address] Dr. Jose Smiley CREAT32.07 mg/pUAjeags79.00-300.00[facility] Comment on above:Performed By: #### INSULIN #### [facility] [address] [place] [address] Dr. Jose Shaw 27-52-4325Gshekwbqlfb peptide B (Bld) [Mass/Vol]1096.0 pg/mLCritically high<=900.0The [facility] AndersonComment on above:Performed By: #### URTPCR #### [facility] [address] [place] [address] Dr. Jose Seals AUTO DIFFon 62-10-0916YYJB #0.0 103/ulNormal0.0-0.1Adena Health SystemComment on above:Performed By: #### CBC #### [facility] [address] [place] [address] Dr. Jose MckinneyBasophils/100 WBC (Bld)0.3 %Normal0.2-2.0[facility] Comment on above:Performed By: #### CBC #### [facility] [address] [place] [address] Dr. Jose Saldivar #0.3 103/ulNormal0.0-0.7The [facility] AndersonComment on above: Performed By: #### CBC #### [facility] [address] [place] [address] Dr. Jose Markosinophils/100 WBC (Bld)2.1 %Normal0.9-7.0[facility] Comment on above:Performed By: #### CBC #### [facility] [address] [place] [address] Dr. Jose Markrythrocyte distribution width (RBC) [Ratio]13.7 %Nkihgm12.0-15.0 The [facility] AndersonComment on above:Performed By: #### CBC #### [facility] [address] [place] [address] Dr. Jose MckinneyHematocrit (Bld) [Volume fraction]40.1 %Wqrjmm20.0-48.0The Reynolds HospitalComment on above:Performed By: #### CBC #### [facility] [address] [place] [address] Dr. Jose MckinneyHemoglobin (Bld) [Mass/Vol]13.5 g/xYSsteyy13.0-16.0Adena Health SystemComment on above:Performed By: #### CBC #### [facility] [address] [place] [address] Dr. Jose Trejo #0.48 10e3/ulCritically high0.00-0.03[facility] Comment on above:Performed By: #### CBC #### [facility] [address] [place] [address] Dr. Jose Trejo %3.7 %Critically high0.0-0.5The [facility] AndersonComment on above:Performed By: #### CBC #### [facility] [address] [place] [address] Dr. Jose Riggs #4.2 103/ulCritically high1.2-3.8The [facility] Comment on above:Performed By: #### CBC #### [facility] [address] [place] [address] Dr. Jose Mondragonhocytes/100 WBC (Bld)32.5 %Dbnciz34.5-60.0The [facility] AndersonComment on above:Performed By: #### CBC #### [facility] [address] [place] [address] Dr. Jose AmezcuaUAL DIFF REQNONormalThe [facility] AndersonComment on above: Performed By: #### CBC #### [facility] [address] [address] [address] Jose Harrington (RBC) [Entitic mass]30.7 xgBbeyjp76.7-34.0The [facility] AndersonComment on above:Performed By: #### CBC #### [facility] [address] [place] [address] Dr. Jose Harrington (RBC) [Mass/Vol]33.7 g/aJKwcite86.9-35.2The [facility] AndersonComment on above:Performed By: #### CBC #### [facility] [address] [place] [address] Dr. Jose Harrington (RBC) [Entitic vol]91.1 zSIapefb69.0-99.0The [facility] AndersonComment on above:Performed By: #### CBC #### [facility] [address] [place] [address] Dr. Jose Acuna #0.9 103/ulCritically high0.3-0.8ThRegency Hospital [facility] Comment on above:Performed By: #### CBC #### [facility] [address] [place] [address] Dr. Jose Buchananocytes/100 WBC (Bld)7.3 %Normal1.7-12.0[facility] Comment on above:Performed By: #### CBC #### [facility] [address] [place] [address] Dr. Jose Lan #6.9 103/ulCritically high1.4-6.5ThRegency Hospital [facility] Comment on above:Performed By: #### CBC #### [facility] [address] [place] [address] Dr. Jose Parsonsutrophils/100 WBC (Bld)54.1 %Ulbied71.0-75.0The [facility] AndersonComment on above:Performed By: #### CBC #### [facility] [address] [place] [address] Dr. Jose Boolet mean volume (Bld) [Entitic vol]11.7 fLNormal9.5-13.5The [facility] AndersonComment on above:Performed By: #### CBC #### [facility] [address] [place] [address] Dr. Jose MckinneyPLT216 103/vwSmxghj638-934Zig [facility] AndersonComment on above: Performed By: #### CBC #### [facility] [address] [place] [address] Dr. Jose MckinneyRBC4.40 106/ulNormal4.20-5.40The [facility] AndersonComment on above:Performed By: #### CBC #### [facility] [address] [place] [address] Dr. Jose MckinneyWBC12.8 103/ulCritically high4.0-11.0The [facility] AndersonComment on above:Performed By: #### CBC #### [facility] [address] [place] [address] Dr. Jose Hurst-19 PCR (CVDFORSYTH DENTAL INFIRMARY FOR CHIL[facility]EN)on 61-78-3491WSKZ-CoV-2 (COVID-19) RNA CHILO+probe Ql (Unsp spec)Not detectedNormalNOT DETECTEDThe [facility] Comment on above:Result Comment: This test is not yet approved or cleared by the [place] FDA. When there are no FDA-approved or cleared tests available, and other criteria are met, FDA can make tests available under an emergency access mechanism called an Emergency Use Authorization (EUA). The EUA for this test is supported by the [place] of Health and Human Service's (HHS's) declaration that circumstances exist to justify the emergency use of in vitro diagnostics for the detection and/or diagnosis of the virus that causes COVID- 19. This EUA will remain in effect (meaning [...] of clinical signs and symptoms consistent with SARS-CoV-2.Performed By: #### INSULIN #### [facility] [address] [place] [address] Dr. Jose Franklin-DIMERon 63-55-6890R-DIMER0.33 mg/L FEUNormal0.19-0.50The [facility] on above:Performed By: #### INSULIN #### [facility] [address] [place] [address] Dr. Jose QuezadaDIMER COMMENTSSEE BELOWNormalThRegency Hospital Cleveland EastComselect specialty hospital-[place] on above:Result Comment: Increases in D-Dimer concentration observed with thromboembolic events [...] stress, and generalized hospitalization. Performed By: #### INSULIN #### [facility] [address] [place] [address] Dr. Jose MckinenyPROF 14(COMP METB)on 57-99-4442Wfboxdx [Mass/Vol]3.4 g/dLNormal 3.4-5.0The [facility] on above:Performed By: #### URTPCR #### [facility] [address] [place] [address] Dr. Jose MckinneyAlbumin/Globulin [Mass ratio]1.0 {ratio}NormalThe [facility] on above:Performed By: #### URTPCR #### [facility] [address] [place] [address] Dr. Jose Vargas [Catalytic activity/Vol]92 U/ALpaxqg35-007Iuy [facility] on above:Performed By: #### URTPCR #### [facility] [address] [place] [address] Dr. Jose ArguellesT [Catalytic activity/Vol]113 U/LCritically pvxc17-33Vnn [facility] on above:Performed By: #### URTPCR #### [facility] [address] [address] [address] Jose Lesteron gap [Moles/Vol]14.0 mmol/LNormalAdena Health System Comment on above:Performed By: #### URTPCR #### [facility] [address] [address] [address] Jose MckinneyAST [Catalytic activity/Vol]50 U/LCritically wzbt11-09Mph [facility] AndersonComment on above:Performed By: #### URTPCR #### [facility] [address] [place] [address] Dr. Jose MckinneyBilirubin [Mass/Vol]0.4 mg/dLNormal0.2-1.3TUniversity [facility]als [facility] Comment on above:Performed By: #### URTPCR #### [facility] [address] [place] [address] Dr. Jose MckinneyCalcium [Mass/Vol]9.0 mg/dLNormal8.5-10.1[facility] Comment on above:Performed By: #### URTPCR #### [facility] [address] [place] [address] Dr. Jose MckinneyChloride [Moles/Vol]100 mmol/GIqesze17-525RjmAdena Health System Comment on above:Performed By: #### URTPCR #### [facility] [address] [place] [address] Dr. Jose MckinneyCO2 [Moles/Vol]25.4 mmol/ZNywdif04.0-30.0[facility] Comment on above:Performed By: #### URTPCR #### [facility] [address] [address] [address] Jose MckinneyCreatinine [Mass/Vol]1.61 mg/dLCritically high0.52-1.04The [facility] AndersonComment on above:Performed By: #### URTPCR #### [facility] [address] [place] [address] Dr. Garcia ChangEGFR-AF TFXJVCRO44 mL/min/1.22o2Dpebijwqka low>=60The [facility] AndersonComment on above:Performed By: #### URTPCR #### [facility] [address] [address] [address] Jose MarkGFR-NON AF GTNGOPZC83 mL/min/1.26j4Qrqgyagurn low>=60The [facility] AndersonComment on above:Performed By: #### URTPCR #### [facility] [address] [address] [address] Jose MckinneyGlobulin (S) [Mass/Vol]3.4 g/dLNormBarnesville HospitalComment on above:Performed By: #### URTPCR #### [facility] [address] [address] [address] Jose MckinneyGlucose [Mass/Vol]57 mg/dLCritically wri97-175Xgz [facility] AndersonComment on above:Performed By: #### URTPCR #### [facility] [address] [address] [address] Jose MckinneyPotassium [Moles/Vol]3.4 mmol/LNormal3.4-5.0The [facility] Comment on above:Performed By: #### URTPCR #### [facility] [address] [address] [address] Jose MckinneyProtein [Mass/Vol]6.8 g/dLNormal6.1-8.2The [facility] Comment on above:Performed By: #### URTPCR #### [facility] [address] [address] [address] Jose MckinneySodium [Moles/Vol]136 mmol/LCritically zmj438-806Txp [facility] AndersonComment on above:Performed By: #### URTPCR #### [facility] [address] [address] [address] Jose MckinneyUrea nitrogen [Mass/Vol]51.0 mg/dLCritically high7.0-18.0The [facility] AndersonComment on above:Performed By: #### URTPCR #### [facility] [address] [address] [address] Jose MckinneyUrea nitrogen/Creatinine [Mass ratio]31.7 mg/mgNoCleveland Clinic Marymount HospitalComselect specialty hospital-[place] on above:Performed By: #### URTPCR #### [facility] [address] [address] [address] Jose Mo, HIGH SENSITIVITYon 99-75-0389ZHXELM48.1 pg/mLNormal 4.0-35.5ThK[facility]tering Health [facility] on above:Result Comment: CUT-OFF POINTS HAVE BEEN ESTABLISHED BASED ON THE FOURTH UNIVERSAL DEFINITIONS OF MYOCARDIAL INFARCTION. THE UPPER REFERENCE LIMIT (URL) OF TROPONIN, DEFINED THE 99TH PERCENTILE OF cTnI DISTRIBUTION IN A REFERENCE POPULATION, HAS BEEN CONFIRMED THE DECISION THRESHOLD FOR AR DIAGNOSIS.Performed By: #### URTPCR #### [facility] [address] [address] [address] Jose MckinneyXR CHEST 1 Von 93-55-9714ZU CHEST 1 VEXAM: XR CHEST 1 V HISTORY: Increased shortness [...] Electronically authenticated by: AFIA KOHLI Date: 2021-09-04 20:53[facility] HospitalXR CHE[facility] 2 Von [id number] CHEST 2 VEXAMINATION: XR CHEST 2 V HISTORY: Acute severe [...] versus mild COPD. Electronically authenticated by: AFIA AVILEZ Date: 2021-08-29 14:43[facility] HospitalCardiovascular Lab Reporton [id number] Lab Report [facility] RolyPaul MR #: [id number] Department of Physician: Huy Howell M.D. Division of Service Date: 11/09/2020 Cardiology Birthdate: 1970 Adult Cardiovascular Room #: [facility] [address] [facility] [place] [address] Cardiovascular Laboratory Report FINAL IMPRESSION: 1. Mild [...] high-intensity statin therapy, +/- beta ayala and angiotensin-converting enzyme inhibitor should be considered given mild coronary disease. 4. Follow up with Dr. Kamran Chatterjee as scheduled. 5. Follow up with [facility] Cardiology on an as-needed basis. PROCEDURES: [...] the left radial artery was obtained. A 6-[place]enezuelan glide sheath was inserted without difficulty. Bilateral [...] Valadez M.D. Date Trans: 11/10/2020 07:37 A/josefa DN_JN:[id number] cc: Kamran Chatterjee M.D. [address] [id number] Children[facility] Center Vital Signs Date TimeVital SignValuePerforming GbzwzlthaHgibhvds20-78-8812 14:15-0400Body .5 Grace Moon MD Work Phone: noLiberty HospitalFgprmxsvag86-35-3356 14:15-0400Body mass index (BMI) [Ratio]49.38 kg/p1KtlxrMargarito Moon MD Work Phone: [phone] Fqgtyajojb78-01-3719 14:15-0400Body .47 kgMargarito Moon MD Work Phone: noVeeda Wtidrwubdx67-49-3952 14:15-0400Diastolic blood pqoeetbz02 mm[Hg]Margarito Moon MD Work Phone: [employer]rapeuticsLiberty HospitalSavrzynjbs00-64-6193 14:15-0400Heart pgsm539 /min Margarito Moon MD Work Phone: [facility] HospitalRdptcuqcrg45-59-2904 14:15-0400Respiratory rate20 /minMargarito Moon MD Work Phone: [facility] HospitalHvzqodnkar45-21-6385 14:15-3995ZrL4% (BldA) [Mass fraction]95 %Margarito Moon MD Work Phone: [facility] HospitalOaksnjwvwp75-35-0661 14:15-0400Systolic blood rvoqxyez993 mm[Hg]Margarito Moon MD Work Phone: [address] [place], [place] [address]Mqdkueegxw16-56-7787 12:38-0400Body temperature 97.4 [degF]Leticia Gillmor [address] Work Phone: [phone] [place], [place] 8901410-12-2025 12:38-0400 Diastolic blood wvpynnsa74 mm[Hg]Leticia Gillmor [address] Work Phone: 1(367)[address] [place], [place] 8901410-12-2025 12:38-0400 Heart rate84 /minAngela Gillmor [address] Work Phone: [phone] [place], [place] 8901410-12-2025 12:38-0400 Respiratory rate18 /minAngela Gillmor [address] Work Phone: [phone] [place], [place] 8901410-12-2025 12:38-0400 SaO2% (BldA) [Mass fraction]97 %Leticia Gillmor [address] Work Phone: [phone] [place], [place] 8901410-12-2025 12:38-0400 Systolic blood mm[Hg]Leticia Gillmor [address] Work Phone: 1(857)[address] [place], [place] 8901410-12-2025 06:00-04[address] Work Phone: 1(095)[address] [place], [place] 8901410-09-2025 13:18-0400 Body qbsfuz692.[address] Work Phone: [facility]10-09-2025 08:49-0400 Inhaled oxygen flow rate2 L/minLeticia Fine [address] Work Phone: [facility]10-08-2025 22:03-0400 Diastolic blood kgdyfngf33 mm[Hg]Ann Josefina [employer]UCKING SUPER[employer]OR[employer]C Work Phone: [phone] [place], [place] 0405510-08-2025 22:03-0400 Heart rate81 /minPamela Josefina TRUCKING SUPERVISOR-C Work Phone: [phone] [place], [place] 0405510-08-2025 22:03-0400 Respiratory rate18 /minPamela Josefina TRUCKING SUPERVISOR-C Work Phone: 1([phone] [place], [place] 0405510-08-2025 22:03-0400 SaO2% (BldA) [Mass fraction]99 %Ann Josefina TRUCKING SUPERVISOR-C Work Phone: 1(028)[address] [place], [place] 0405510-08-2025 22:03-0400 Systolic blood hojfxjzq765 mm[Hg]Ann Josefina TRUCKING SUPERVISOR-C Work Phone: 1([phone] [place], [place] 0405510-08-2025 13:05-0400 Body ahlqmq603.94 cmPamela Josefina TRUCKING SUPERVISOR-C Work Phone: [phone] [place], [place] 0405510-08-2025 13:05-0400 Body dnealoflkfp00.6 [degF]Ann Josefina TRUCKING SUPERVISOR-C Work Phone: [phone] [place], [place] 0405510-08-2025 13:05-0400 Body .2 kgPamela Josefina TRUCKING SUPERVISOR-C Work Phone: [phone] [place], [place] 0405510-08-2025 13:05-0400 Inhaled oxygen flow rate4 L/minPamela Josefina TRUCKING SUPERVISOR-C Work Phone: [phone] [place], [place] 0405509-23-2025 11:29-0400 Body pacehv160.48 cmPamela Josefina TRUCKING SUPERVISOR-C Work Phone: 1([phone] [place], [place] 0405509-23-2025 11:29-0400 Body mass index (BMI) [Ratio]48.4 kg/k1Kkvmhb Josefina TRUCKING SUPERVISOR-C Work Phone: 1([phone] [place], [place] 9280809-23-2025 11:29-0400 Body udpxds499.2 kgPamela Josefina TRUCKING SUPERVISOR-C Work Phone: [phone] [place], [place] 9280809-23-2025 10:43-0400 Body ixfdccxqoab21.7 [degF]Ann Josefina TRUCKING SUPERVISOR-C Work Phone: 1([phone] [place], [place] 9280809-23-2025 10:43-0400 Diastolic blood qkmigrnm14 mm[Hg]Ann Josefina TRUCKING SUPERVISOR-C Work Phone: 1(022)300-[address] [place], [place] 9280809-23-2025 10:43-0400 Heart rate92 /minPamela Josefina TRUCKING SUPERVISOR-C Work Phone: [phone] [place], [place] 9280809-23-2025 10:43-0400 Inhaled oxygen flow rate4 L/minPamela Josefina TRUCKING SUPERVISOR-C Work Phone: 1([phone] [place], [place] 9280809-23-2025 10:43-0400 Respiratory rate18 /minPamela Josefina TRUCKING SUPERVISOR-C Work Phone: 1(071)254-[address] [place], [place] 9280809-23-2025 10:43-0400 Systolic blood rkrnofnk008 mm[Hg]Ann Josefina TRUCKING SUPERVISOR-C Work Phone: [phone] [place], [place] 9280809-22-2025 16:15-0400 Diastolic blood ymparhfy32 mm[Hg]Anila Granados MD Work Phone: [facility]09-22-2025 16:15-0400 Heart rate83 /Felicitas Granados MD Work Phone: [facility]09-22-2025 16:15-0400 Systolic blood mm[Hg]Anila Granados MD Work Phone: [facility]09-11-2025 14:02-0400 Body senawx411.5 cmBenito Romero Yumiko Work Phone: [facility] HospitalXskaesmxkb16-43-2722 14:02-0400Body mass index (BMI) [Ratio]48.29 kg/l1Rezgihyt Brown DPM Work Phone: [facility] HospitalXzcrjgyzgx77-85-4446 14:02-0400Body acvwqy757.75 kgBenito Romero DPM Work Phone: [facility] HospitalRpibgkgwld15-40-0309 14:02-0400Respiratory rate16 /minJosefbeni Romero DPM Work Phone: [facility] HospitalQagiidrbds82-53-7373 09:22-0400Body ipcvwm185.48 cmAtelly Granados MD Work Phone: [phone]09-02-2025 09:22-0400 Body mass index (BMI) [Ratio]48.4 kg/a8WcguiAnila Granados MD Work Phone: 1(381)[address] [place], [place] 9327609-02-2025 09:22-0400 Body .2 Lora Granados MD Work Phone: 1([phone] [place], [place] 9327609-02-2025 08:44-0400 Body papsbwkzmqm33.1 [degF]Anila Granados MD Work Phone: 1([phone] [place], [place] 9327609-02-2025 08:44-0400 Diastolic blood ovwyyuvp11 mm[Hg]Anila Granados MD Work Phone: 1(428)[address]09-02-2025 08:44-0400 Heart rate90 /Felicitas Granados MD Work Phone: [phone] [place], [place] 2383109-02-2025 08:44-0400 Inhaled oxygen flow rate2 L/minAnila Granados MD Work Phone: 1(127)[address] [place], [place] 9327609-02-2025 08:44-0400 Respiratory rate18 /Felicitas Granados MD Work Phone: [phone] [place], [place] 2383109-02-2025 08:44-0400 Systolic blood gehbuvft759 mm[Hg]Anila Granados MD Work Phone: [facility]07-29-2025 14:18-0400 Body .5 Grace Moon MD Work Phone: [facility] HospitalGvzwjzucob94-10-2933 14:18-0400Body mass index (BMI) [Ratio]48.29 kg/e2AtxllMargarito Moon MD Work Phone: [facility] HospitalAzkdjwlsfk88-49-9295 14:18-0400Body salgzx902.75 kgMargarito Moon MD Work Phone: [facility] HospitalGitrjwzpks71-33-0428 14:18-0400Heart rate76 /min Margarito Moon MD Work Phone: [facility] HospitalUwinodpmnl03-76-8943 14:18-0400Respiratory rate16 /minMargarito Moon MD Work Phone: [facility] HospitalSejwmszjpv55-09-2763 14:18-3592FxE6% (BldA) [Mass fraction]99 %Margarito Moon MD Work Phone: [facility] HospitalXfnakpogzh20-55-8223 10:33-0400Body ofsnmo473.5 Tiffany Olmedo MD Work Phone: noLiberty HospitalHvfcxtxqra89-21-0326 10:33-0400Body mass index (BMI) [Ratio]50.48 kg/m2Jeanna Olmedo MD Work Phone: noLiberty HospitalQjstsxqfun07-99-8274 10:33-0400Body czasuq529.19 kgJeanna Olmedo MD Work Phone: noLiberty HospitalDxiyahfwhz44-49-3262 15:58-0400Body cjyjfk637.48 Josefa Fournier TRUCKING SUPERVISOR-C Work Phone: [facility]07-03-2025 15:58-0400 Body mass index (BMI) [Ratio]49.5 kg/p1BqthijAnn Fournier TRUCKING SUPERVISOR-C Work Phone: [facility]07-03-2025 15:58-0400 Body igersbcnnym75.9 [degF]Ann Velamer TRUCKING SUPERVISOR-C Work Phone: 1([phone] [place], [place] 9280807-03-2025 15:58-0400 Body .92 kgPamelliya Josefina TRUCKING SUPERVISOR-C Work Phone: 1([phone] [place], [place] 9280807-03-2025 15:58-0400 Diastolic blood motenwar41 mm[Hg]Ann Fournier TRUCKING SUPERVISOR-C Work Phone: 1(343)314-[address] [place], [place] 9280807-03-2025 15:58-0400 Heart rate72 /minPamela Josefina TRUCKING SUPERVISOR-C Work Phone: 1(656)698-[address] [place], [place] 9280807-03-2025 15:58-0400 Inhaled oxygen flow rate2 L/minPachrisa Josefina TRUCKING SUPERVISOR-C Work Phone: 1(566)219-[address] [place], [place] 9280807-03-2025 15:58-0400 Respiratory rate20 /minPamela Josefina TRUCKING SUPERVISOR-C Work Phone: 1(928)539-[address] [place], [place] 9280807-03-2025 15:58-0400 SaO2% (BldA) [Mass fraction]98 %Ann Josefina TRUCKING SUPERVISOR-C Work Phone: 1(345)106-[address] [place], [place] 9280807-03-2025 15:58-0400 Systolic blood yvawjwbl650 mm[Hg]Ann Josefina TRUCKING SUPERVISOR-C Work Phone: 1(085)600-[address] [place], [place] 9280806-26-2025 14:05-0400 Body .5 cmBenito Romero DPM Work Phone: [facility] HospitalXrtbejfeqt79-18-6297 14:05-0400Body mass index (BMI) [Ratio]51.76 kg/c6FundzmoaBenito Romero DPM Work Phone: [facility] HospitalPzsoidorji96-55-9997 14:05-0400Body .37 kgBenito Romero DPM Work Phone: [facility] HospitalGfyfqjpahq83-13-6182 14:05-0400Respiratory rate18 /minBenito Romero DPM Work Phone: [facility] HospitalHxwfchcibd95-97-3964 10:59-0400Body hfochp551.48 cmPamela Josefina TRUCKING SUPERVISOR-C Work Phone: 1(815)058-[address] [place], [place] 9280806-03-2025 10:59-0400 Body mass index (BMI) [Ratio]47.2 kg/h0Mwrizz Josefina TRUCKING SUPERVISOR-C Work Phone: 1(425)[address]06-03-2025 10:59-0400 Body xfmxte226.02 kgPachrisa Josefina TRUCKING SUPERVISOR-C Work Phone: 1(013)[facility]-[address] [place], [place] 9280806-03-2025 10:36-0400 Body jfnfckculca16.4 [degF]Ann Josefina TRUCKING SUPERVISOR-C Work Phone: 1(197)137-[address] [place], [place] 9280806-03-2025 10:36-0400 Diastolic blood khzlbjut23 mm[Hg]Ann Josefina TRUCKING SUPERVISOR-C Work Phone: 1(979)[address]06-03-2025 10:36-0400 Heart rate92 /minPamela Josefina TRUCKING SUPERVISOR-C Work Phone: 1(299)[facility]-[address] [place], [place] 9280806-03-2025 10:36-0400 Respiratory rate20 /minPamela Josefina TRUCKING SUPERVISOR-C Work Phone: 1(316)[facility] [place], [place] 9280806-03-2025 10:36-0400 Systolic blood xpmouacf552 mm[Hg]Ann Josefina TRUCKING SUPERVISOR-C Work Phone: 1(104)[address] [place], [place] 0405504-29-2025 13:59-0400 Body .5 Grace Moon MD Work Phone: 1(115)419-22[facility] HospitalJwhszsloon24-31-1339 13:59-0400Body mass index (BMI) [Ratio]51.76 kg/g6RkqqvMargarito Moon MD Work Phone: 1(291)556-20[facility] HospitalHfnlkeklzx62-03-2520 13:59-0400Body arzhwn538.37 Rocco Moon MD Work Phone: [facility] HospitalWklcpkxvah16-22-3104 13:59-0400Diastolic blood epnsrvji49 mm[Hg]Margarito Moon MD Work Phone: [facility] HospitalDcauliufyr68-74-9235 13:59-0400Heart rate99 /min Margarito Moon MD Work Phone: [facility] HospitalPyttahpdon95-96-4742 13:59-0400Respiratory rate18 /minMargarito Moon MD Work Phone: [facility] HospitalOsjaxbmmph11-75-9401 13:59-5233ZvX8% (BldA) [Mass fraction]97 %Margarito Moon MD Work Phone: 1(990)934-[address] [place], [place] [address]Zycslknfzf15-55-4332 13:59-0400Systolic blood quzzcdgp889 mm[Hg]Margarito Moon MD Work Phone: 1(753)526-[address] [place], [place] [address]Vhxhpncufo11-63-6996 10:42-0400Body ikezjc636.48 cmPamela Josefina TRUCKING SUPERVISOR-C Work Phone: 1(668)697-[address] [place], [place] 9280804-08-2025 10:42-0400 Body mass index (BMI) [Ratio]47.2 kg/u3Bhrfre Josefina TRUCKING SUPERVISOR-C Work Phone: 1(850)841-[address] [place], [place] 9280804-08-2025 10:42-0400 Body .02 kgPachrisa Josefina TRUCKING SUPERVISOR-C Work Phone: 1(820)301-[address] [place], [place] 9280804-08-2025 10:15-0400 Body vkzvexfadzx67 [degF]Annlance Velamer TRUCKING SUPERVISOR-C Work Phone: 1(926)486-[address] [place], [place] 9280804-08-2025 10:15-0400 Diastolic blood kamkcbiw81 mm[Hg]Annlance Velamer TRUCKING SUPERVISOR-C Work Phone: 1(754)382-[address] [place], [place] 9280804-08-2025 10:15-0400 Heart rate82 /minPachrisa Josefina TRUCKING SUPERVISOR-C Work Phone: 1(268)875-[address] [place], [place] 9280804-08-2025 10:15-0400 Respiratory rate18 /minPachrisa Josefina TRUCKING SUPERVISOR-C Work Phone: 1(796)776-[address] [place], [place] 9280804-08-2025 10:15-0400 Systolic blood mwtjsaei798 mm[Hg]Ann Josefina TRUCKING SUPERVISOR-C Work Phone: 1(074)078-[address] [place], [place] 9280803-22-2025 18:54-0400 Diastolic blood usdbnmba81 mm[Hg]Ann Josefina TRUCKING SUPERVISOR-C Work Phone: 1(735)483-[address] [place], [place] 9280803-22-2025 18:54-0400 Heart rate69 /minPachrisa Josefina TRUCKING SUPERVISOR-C Work Phone: 1(618)483-[address] [place], [place] 9280803-22-2025 18:54-0400 Respiratory rate18 /minPachrisa Josefina TRUCKING SUPERVISOR-C Work Phone: 1(905)368-[address] [place], [place] 9280803-22-2025 18:54-0400 SaO2% (BldA) [Mass fraction]96 %Ann Josefina TRUCKING SUPERVISOR-C Work Phone: 1(227)[facility]-[address] [place], [place] 9280803-22-2025 18:54-0400 Systolic blood ddnzuyok885 mm[Hg]Ann Josefina TRUCKING SUPERVISOR-C Work Phone: 1(310)[facility]-[address] [place], [place] 9280803-22-2025 16:33-0400 Body .48 cmPamela Josefina TRUCKING SUPERVISOR-C Work Phone: 1(880)[address] [place], [place] 0405503-22-2025 16:33-0400 Body gxoiuqvtxac83.9 [degF]Ann Josefina TRUCKING SUPERVISOR-C Work Phone: 1(772)[address] [place], [place] 0405503-22-2025 16:33-0400 Body .85 kgPamela Josefina TRUCKING SUPERVISOR-C Work Phone: 1(437)[facility]-[address] [place], [place] 9280803-18-2025 09:47-0400 Body hcuelw381.48 cmPamela Josefina TRUCKING SUPERVISOR-C Work Phone: 1(246)[address] [place], [place] 0405503-18-2025 09:47-0400 Body mass index (BMI) [Ratio]47.2 kg/i3Oyogdj Josefina TRUCKING SUPERVISOR-C Work Phone: 1(026)[address]03-18-2025 09:47-0400 Body caghrc307.02 kgPamela Josfeina TRUCKING SUPERVISOR-C Work Phone: 1(547)[address]03-18-2025 09:33-0400 Diastolic blood vswtkdew88 mm[Hg]Ann Fournier TRUCKING SUPERVISOR-C Work Phone: [facility]03-18-2025 09:33-0400 Heart sjpv382 /minPachrisa Josefina TRUCKING SUPERVISOR-C Work Phone: 1(937)016-[address] [place], [place] 9280803-18-2025 09:33-0400 Respiratory rate18 /minPamela Josefina TRUCKING SUPERVISOR-C Work Phone: [facility]03-18-2025 09:33-0400 Systolic blood gnghwuwh428 mm[Hg]Ann Fournier TRUCKING SUPERVISOR-C Work Phone: 1(103)958-[address] [place], [place] 9280803-13-2025 13:53-0400 Body pmehye425.5 cmBenito Romero DPM Work Phone: [facility] HospitalZzfunjwdnj92-25-1531 13:53-0400Body mass index (BMI) [Ratio]48.83 kg/o3Qjncsoqm Brown DPM Work Phone: 1(852)[address] [place], [place] [address]Wjazzchpte09-17-6223 13:53-0400Body .11 kgBenito Romero DPM Work Phone: 1(892)9-[address] [place], [place] [address]Rvusqmcewp39-66-5629 13:53-0400Respiratory rate16 /Alexa Brown DPM Work Phone: [facility] HospitalTyuoilsdpa04-36-8376 20:58-0400Diastolic blood cwkescgf10 mm[Hg]Ann Fournier TRUCKING SUPERVISOR-C Work Phone: [facility]03-12-2025 20:58-0400 Heart rate76 /minPamela Josefina TRUCKING SUPERVISOR-C Work Phone: [facility]03-12-2025 20:58-0400 Respiratory rate16 /minPamela Josefina TRUCKING SUPERVISOR-C Work Phone: [facility]03-12-2025 20:58-0400 SaO2% (BldA) [Mass fraction]96 %Ann Fournier TRUCKING SUPERVISOR-C Work Phone: 1(419)[address]03-12-2025 20:58-0400 Systolic blood ubdkinvx902 mm[Hg]Ann Josefina TRUCKING SUPERVISOR-C Work Phone: [facility]03-12-2025 17:34-0400 Body mcwgda873.48 Josefa Josefina TRUCKING SUPERVISOR-C Work Phone: 1(461)840-[address] [place], [place] 9280803-12-2025 17:34-0400 Body lxayrswdcou38.1 [degF]Ann Josefina TRUCKING SUPERVISOR-C Work Phone: 1(700)750-[address] [place], [place] 9280803-12-2025 17:34-0400 Body eiwivi238.3 kgPacony Josefina TRUCKING SUPERVISOR-C Work Phone: 1(950)632-[address] [place], [place] 9280803-11-2025 11:00-0400 Body zshkuo617.5 Kae HO Work Phone: 1(794)144-5[facility] HospitalMkchjvuxae16-77-4542 11:00-0400Body mass index (BMI) [Ratio]48.83 kg/m2Angelia HO Work Phone: 1(299)186-5[facility] HospitalAqihnzyxnq13-21-9005 11:00-0400Body .11 kgAngelia HO Work Phone: 1(305)028-1[facility] HospitalCnipqatkyh13-40-5883 11:00-0400Diastolic blood uspvybzc38 mm[Hg]Angelia HO Work Phone: 1(699)910-1[facility] HospitalAdjsmqzxbe45-47-4320 11:00-0400Heart rate93 /min Angelia HO Work Phone: 1([phone] [address]Usehdphbvj42-75-8438 11:00-0400Respiratory rate16 /minAngelia Worley PA Work Phone: [facility] HospitalQjoqyyaljg23-18-3804 11:00-5808CwC3% (BldA) [Mass fraction]96 %Angelia HO Work Phone: [facility] HospitalLvqzsnhryt87-25-1649 11:00-0400Systolic blood mm[Hg]Angelia HO Work Phone: [facility] HospitalPhwqmvyzsp60-37-9596 11:21-0500Body sxvebz021.48 cmPamela Josefina TRUCKING SUPERVISOR-C Work Phone: 1(148)[facility]-[address] [place], [place] 9280802-25-2025 11:21-0500 Body mass index (BMI) [Ratio]47.2 kg/b9Karkov Josefina TRUCKING SUPERVISOR-C Work Phone: 1(164)[address] [place], [place] 0405502-25-2025 11:21-0500 Body .02 kgPamela Josefina TRUCKING SUPERVISOR-C Work Phone: 1(412)[facility]-[address] [place], [place] 9280802-25-2025 11:02-0500 Body ankopaukplv27.3 [degF]Ann Josefina TRUCKING SUPERVISOR-C Work Phone: 1(429)[facility]-[address] [place], [place] 9280802-25-2025 11:02-0500 Diastolic blood mm[Hg]Ann Josefina TRUCKING SUPERVISOR-C Work Phone: 1(366)[facility]-[address] [place], [place] 9280802-25-2025 11:02-0500 Heart rate83 /minPamela Josefina TRUCKING SUPERVISOR-C Work Phone: 1(481)[facility]-[address] [place], [place] 9280802-25-2025 11:02-0500 Respiratory rate16 /minPamela Josefina TRUCKING SUPERVISOR-C Work Phone: 1(728)[facility]-[address] [place], [place] 9280802-25-2025 11:02-0500 Systolic blood uzzezopw521 mm[Hg]Ann Josefina TRUCKING SUPERVISOR-C Work Phone: 1(631)[facility]-[address] [place], [place] 9280811-07-2024 13:07-0500 Body nejwxh517 cmBenito Romero DPM Work Phone: [facility] HospitalPjrihzmjmh54-74-7957 13:07-0500Body mass index (BMI) [Ratio]48.54 kg/x7CvpjgjihBenito Romero DPM Work Phone: [facility] HospitalEkmvpkzlxd64-20-2208 13:07-0500Body .29 kgBenito Romero DPM Work Phone: [facility] HospitalWrplcvmann09-38-3061 13:07-0500Diastolic blood jhmunmaf77 mm[Hg]Benito Romero DPM Work Phone: [facility] HospitalUiinwdneuy61-40-1117 13:07-0500Heart rate82 /min Benito Brown DPM Work Phone: [facility] HospitalOhjvrghwza00-92-1924 13:07-0500Systolic blood caloceyb002 mm[Hg]Benito Romero DPM Work Phone: [facility] HospitalSsgsiwckjl09-92-7391 23:16-0500Diastolic blood yujvwdhr81 mm[Hg]TRUCKING SUPERVISOR-C Ann Josefina Work Phone: 1(499)712-[address] [place], [place] 9280811-04-2024 23:16-0500 Heart rate87 /minNP-C Ann Josefina Work Phone: 1(219)594-[address] [place], [place] 9280811-04-2024 23:16-0500 Respiratory rate18 /minNP-C Ann Josefina Work Phone: 1(164)[address]11-04-2024 23:16-0500 SaO2% (BldA) [Mass fraction]98 %TRUCKING SUPERVISOR-C Ann Josefina Work Phone: 1(692)809-[address] [place], [place] 9280811-04-2024 23:16-0500 Systolic blood esnbaahy176 mm[Hg]TRUCKING SUPERVISOR-C Ann Josefina Work Phone: 1(150)607-[address] [place], [place] 9280811-04-2024 19:27-0500 Body .48 cmNP-C Ann Josefina Work Phone: 1(611)723-[address] [place], [place] 9280811-04-2024 19:27-0500 Body zmcvqhiurfa49.6 [degF]TRUCKING SUPERVISOR-C Ann Josefina Work Phone: 1(544)135-[address] [place], [place] 9280811-04-2024 19:27-0500 Body .75 kgNP-C Ann Josefina Work Phone: 1(116)[address]10-29-2024 09:36-0400 Body wphpey910.48 cmNP-C Ann Josefina Work Phone: 1(001)[address]10-29-2024 09:36-0400 Body mass index (BMI) [Ratio]47.2 kg/m2NP-C Ann Josefina Work Phone: 1(843)044-[address] [place], [place] 9280810-29-2024 09:36-0400 Body jgokuc415.02 kgNP-C Ann Josefina Work Phone: [address] [place], [place] 0405510-29-2024 09:10-0400 Body ybaftmwmxgm05.8 [degF]TRUCKING SUPERVISOR-C Ann Josefina Work Phone: 1(809)[address] [place], [place] 0405510-29-2024 09:10-0400 Diastolic blood uosfrlxy90 mm[Hg]TRUCKING SUPERVISOR-C Ann Josefina Work Phone: 1419)[address]10-29-2024 09:10-0400 Heart esrr585 /minNP-C Ann Josefina Work Phone: 1(626)[address] [place], [place] 0405510-29-2024 09:10-0400 Respiratory rate18 /minNP-C Ann Josefina Work Phone: 1(658)[address] [place], [place] 0405510-29-2024 09:10-0400 Systolic blood gbnzbhdi298 mm[Hg]TRUCKING SUPERVISOR-C Ann Josefina Work Phone: 1(419)[address] [place], [place] 0405510-23-2024 08:00-0400 Body ecmgzqgihcq18.1 [degF]TRUCKING SUPERVISOR-C Ann Josefina Work Phone: 1(956)[address] [place], [place] 0405510-23-2024 08:00-0400 Diastolic blood mm[Hg]TRUCKING SUPERVISOR-C Ann Josefina Work Phone: 1(440)[address] [place], [place] 0405510-23-2024 08:00-0400 Heart rate67 /minNP-C Ann Josefina Work Phone: 1(908)483-[address] [place], [place] 9280810-23-2024 08:00-0400 Respiratory rate17 /minNP-C Ann Josefina Work Phone: 1(333)[address] [place], [place] 0405510-23-2024 08:00-0400 SaO2% (BldA) [Mass fraction]94 %TRUCKING SUPERVISOR-C Ann Josefina Work Phone: 1(947)[address]10-23-2024 08:00-0400 Systolic blood yjmkiene353 mm[Hg]TRUCKING SUPERVISOR-C Ann Josefina Work Phone: 1(838)483-[address] [place], [place] 9280810-23-2024 06:50-0400 Body xenklv011.4 kgNP-C Ann Josefina Work Phone: 1(493)[address] [place], [place] 0405510-22-2024 09:32-0400 Inhaled oxygen flow rate6 L/minNP-C Ann Josefina Work Phone: 1(593)[address] [place], [place] 0405510-21-2024 15:55-0400 Body dluodg068.48 cmNP-C Ann Josefina Work Phone: 1419)[address] [place], [place] 0405510-16-2024 22:12-0400 Body cfbgtozyoug68.3 [degF]TRUCKING SUPERVISOR-C Ann Josefina Work Phone: 1(431)[address] [place], [place] 0405510-16-2024 22:12-0400 Diastolic blood mm[Hg]TRUCKING SUPERVISOR-C Ann Josefina Work Phone: 1(652)[address] [place], [place] 0405510-16-2024 22:12-0400 Heart rate83 /minNP-C Ann Josefina Work Phone: 1(628)[address] [place], [place] 0405510-16-2024 22:12-0400 Respiratory rate16 /minNP-C Ann Josefina Work Phone: 1(818)[address] [place], [place] 0405510-16-2024 22:12-0400 SaO2% (BldA) [Mass fraction]99 %TRUCKING SUPERVISOR-C Ann Josefina Work Phone: 1(418)[address] [place], [place] 0405510-16-2024 22:12-0400 Systolic blood icqpongq221 mm[Hg]TRUCKING SUPERVISOR-C Ann Josefina Work Phone: 1(475)[address] [place], [place] 0405510-16-2024 16:35-0400 Body .48 cmNP-C Ann Josefina Work Phone: 1(035)[address] [place], [place] 0405510-16-2024 16:35-0400 Body ebxmge484 kgNP-C Ann Josefina Work Phone: 1(350)[address] [place], [place] 0405510-15-2024 16:06-0400 Body vopoip871.48 cmNP-C Ann Velamer Work Phone: 1(606)[address] [place], [place] 0405510-15-2024 16:06-0400 Body [degF]TRUCKING SUPERVISOR-C Ann Velamer Work Phone: 1(160)[address] [place], [place] 0405510-15-2024 16:06-0400 Body mxadln744.39 kgNP-C Ann Velamer Work Phone: 1(207)[address] [place], [place] 0405510-15-2024 16:06-0400 Diastolic blood xohfexbg13 mm[Hg]TRUCKING SUPERVISOR-C Annlance Velamer Work Phone: 1(638)[address] [place], [place] 0405510-15-2024 16:06-0400 Heart msby660 /minNP-C Ann Velamer Work Phone: 1(410)[address] [place], [place] 0405510-15-2024 16:06-0400 Respiratory rate22 /minNP-C Ann Velamer Work Phone: 1(362)[address] [place], [place] 0405510-15-2024 16:06-0400 SaO2% (BldA) [Mass fraction]97 %TRUCKING SUPERVISOR-C Ann Velamer Work Phone: 1(690)[address] [place], [place] 0405510-15-2024 16:06-0400 Systolic blood ybmmmmxt775 mm[Hg]TRUCKING SUPERVISOR-C Ann Velamer Work Phone: 1(501)[address] [place], [place] 0405510-09-2024 15:45-0400 Body erehnogucuz58.5 [degF]Renee Kaelyn LABOR[address] RO[address]-MEDICAL PSYCHOTHERAPIST Work Phone: 1(141)[facility]10-09-2024 15:45-0400Diastolic blood mm[Hg]Renee Kaelyn LAB[address] RO[address]-MEDICAL PSYCHOTHERAPIST Work Phone: 1(621)[facility]10-09-2024 15:45-0400Heart rate 97 /minJessica Kaelyn LABORER RO[address]-MEDICAL PSYCHOTHERAPIST Work Phone: 1(215)[facility]10-09-2024 15:45-0400 Respiratory rate18 /minJessica Kaelyn LABORER RO[address]-MEDICAL PSYCHOTHERAPIST Work Phone: 1(262)[facility]10-09-2024 15:45-0400Systolic blood wqpogcws000 mm[Hg]Renee Art LAB[address]-MEDICAL PSYCHOTHERAPIST Work Phone: 1(965)[facility]10-02-2024 11:04-0400Body qxryxgzwbbw69.5 [degF]Jayleen Nicole LAB[address] RO[address]-MEDICAL PSYCHOTHERAPIST Work Phone: [facility]10-02-2024 11:04-0400Diastolic blood zmapudwb03 mm[Hg]Jayleen Nicole LAB[address] RO[address]-MEDICAL PSYCHOTHERAPIST Work Phone: [facility]10-02-2024 11:04-0400Heart rate 91 /Woodrow Nicole LAB[address]ER RO[address]-MEDICAL PSYCHOTHERAPIST Work Phone: [facility]10-02-2024 11:04-0400Systolic blood coepqojh589 mm[Hg]Jayleen Nicole LAB[address]-MEDICAL PSYCHOTHERAPIST Work Phone: [facility]09-27-2024 15:01-0400Body kcrixxpsjqq83.5 [degF]Ghanshyam Mayberry MD Work Phone: [facility]09-27-2024 15:01-0400Diastolic blood mm[Hg]Ghanshyam Mayberry MD Work Phone: 1(281)[phone]09-27-2024 15:01-0400Heart rate 86 /Molina Mayberry MD Work Phone: [facility]09-27-2024 15:01-0400 Respiratory rate16 /Molina Mayberry MD Work Phone: [facility]09-27-2024 15:01-0400Systolic blood qdfwinwi401 mm[Hg]Ghanshyam Mayberry MD Work Phone: [facility]09-27-2024 10:09-6870FnS1% (BldA) [Mass fraction]94 %Ghanshyam Mayberry MD Work Phone: [facility]09-26-2024 00:00-0400Body mass index (BMI) [Ratio]51.14 kg/w8EitnefGhanshyam Mayberry MD Work Phone: [facility] Kpnude56-35-3088 00:00-0400Body mrtylp808.83 kgGhanshyam Mayberry MD Work Phone: [facility] Hfunwn30-89-8127 21:36-0400Body evfhqz185.5 cmGhanshyam Mayberry MD Work Phone: [facility] Onwbvd92-98-1928 13:56-0400Body dumxyqukbvk64.6 [degF]Jayleen Nicole LABORER RO[address]-MEDICAL PSYCHOTHERAPIST Work Phone: 1(083)574-37[facility] Jhvxsi78-58-1518 13:56-0400Diastolic blood mm[Hg]Jayleen Nicole LAB[address]-MEDICAL PSYCHOTHERAPIST Work Phone: 1(670)076-14[facility] Algmcy18-93-9710 13:56-0400Heart rate 111 /minJayleen Bonnie LABORER RO[address]-MEDICAL PSYCHOTHERAPIST Work Phone: 1(383)014-96[facility] Bcknjc33-62-2058 13:56-0400Systolic blood stodchcy726 mm[Hg]Jayleen Nicole LAB[address]ER [address]-MEDICAL PSYCHOTHERAPIST Work Phone: 1([phone] Tktcjd60-79-6170 09:20-0400Body lfxcltylvsp56.6 [degF]Jayleen Nicole LAB[address]-MEDICAL PSYCHOTHERAPIST Work Phone: 1(124)[phone] Qnwrvc57-39-1290 09:20-0400Diastolic blood vyjbszer66 mm[Hg]Jayleen Nicole LAB[address]-MEDICAL PSYCHOTHERAPIST Work Phone: 1(049)535-97[facility] Bfzend60-49-5692 09:20-0400Heart rate 80 /minNakiajules Nicole LABORER ROAD-MEDICAL PSYCHOTHERAPIST Work Phone: [phone] Ijxmml28-35-2416 09:20-0400 Respiratory rate18 /minJayleen Bonnie LABORER ROAD-MEDICAL PSYCHOTHERAPIST Work Phone: 1(428)437-19[facility] Rgxhln15-64-0348 09:20-0400Systolic blood gsgyqvoa935 mm[Hg]Jayleen Nicole LABORER RO[address]-MEDICAL PSYCHOTHERAPIST Work Phone: [phone]-30-2024 14:02-0400Body .6 [degF]Jayleen Nicole LABORER RO[address]-MEDICAL PSYCHOTHERAPIST Work Phone: [facility]08-30-2024 14:02-0400Diastolic blood yojiyqbc39 mm[Hg]Jayleen Nicole LABORER [address]-MEDICAL PSYCHOTHERAPIST Work Phone: [facility]08-30-2024 14:02-0400Heart rate 86 /minJayleen Nicole LABORER ROAD-MEDICAL PSYCHOTHERAPIST Work Phone: [facility]08-30-2024 14:02-0400 Respiratory rate18 /minJayleen Nicole LABORER ROAD-MEDICAL PSYCHOTHERAPIST Work Phone: [facility]08-30-2024 14:02-040Systolic blood zxkfmidh954 mm[Hg]Jayleen Nicole LABORER RO[address]-MEDICAL PSYCHOTHERAPIST Work Phone: [facility]08-29-2024 13:15-0400Body lhpcwa724 cmBenito Romero DPM Work Phone: [facility] HospitalVqblnebecv88-59-2060 13:15-0400Body mass index (BMI) [Ratio]48.54 kg/g2XxianzrvBenito Romero DPM Work Phone: [facility] HospitalShbtexijtb83-94-6084 13:15-0400Body .29 kgBenito Romero DPM Work Phone: [facility] HospitalUlnlxuqhga60-02-2227 13:15-0400Diastolic blood jqziwxbd94 mm[Hg]Benito Romero DPM Work Phone: [facility] HospitalAytxgdfjjq26-73-7763 13:15-0400Heart rate77 /min Benito Romero DPM Work Phone: [place] [address]Bjwpgunpvx81-83-7927 13:15-0400Systolic blood mm[Hg]Benito Romero DPM Work Phone: [facility] HospitalOaoylnlypj10-22-1431 10:49-0400Body yiwtxx624 cm Manolo Sanchez DO Work Phone: 1(567)228-030217 [address] StreetYdepdvzwsh59-93-9965 10:49-0400Body mass index (BMI) [Ratio]48.54 kg/m2Manolo Sanchez DO Work Phone: 1(008)[facility] [place], [place] [id number] 10:49-0400Body fkqbae536.29 kgManolo Snachez DO Work Phone: [address] [place], [place] 6105008-21-2024 10:49-0400Heart rate74 /min Manolo Sanchez DO Work Phone: 1(186)[address] [place], [place] 6105008-21-2024 10:49-0400Respiratory rate18 /minManolo Sanchez DO Work Phone: 1(322)[address] [place], [place] 6105008-21-2024 10:49-8147HfJ9% (BldA) [Mass fraction]99 %Manolo Sanchez DO Work Phone: 1(817)[address] [place], [place] 6105005-09-2024 15:26-0400Body eraxnx093.02 cmNP-C Ann Fournier Work Phone: 1(336)[address]05-09-2024 15:26-0400 Body mass index (BMI) [Ratio]45.8 kg/m2NP-C Ann Fournier Work Phone: 1(084)[address] [place], [place] 0405505-09-2024 15:26-0400 Body dafjrxdcffl15.9 [degF]TRUCKING SUPERVISOR-C Ann Fournier Work Phone: 1(538)[address] [place], [place] 0405505-09-2024 15:26-0400 Body mcintj960.25 kgNP-C Ann Fournier Work Phone: 1(027)[address] [place], [place] 0405505-09-2024 15:26-0400 Diastolic blood djvcerxw07 mm[Hg]TRUCKING SUPERVISOR-C Ann Velamer Work Phone: 1(940)[address]05-09-2024 15:26-0400 Heart rate75 /minNP-C Ann Velamer Work Phone: 1(550)[address]05-09-2024 15:26-0400 Respiratory rate18 /minNP-C Ann Fournier Work Phone: [facility]05-09-2024 15:26-0400 SaO2% (BldA) [Mass fraction]96 %TRUCKING SUPERVISOR-C Ann Fournier Work Phone: [facility]05-09-2024 15:26-0400 Systolic blood vvkuzloq055 mm[Hg]TRUCKING SUPERVISOR-C Ann Fournier Work Phone: [facility]03-14-2024 10:23-0400 Body selciq[address]-MEDICAL PSYCHOTHERAPIST [facility] Phone[facility] 10:23-0400Body mass index (BMI) [Ratio]49.03 kg/o0IxfazikReene Dubose LABORER [address]-MEDICAL PSYCHOTHERAPIST Work Phone: [facility]-14-2024 10:23-0400Body vwdnmi140.[address]-MEDICAL PSYCHOTHERAPIST Work Phone: [facility]-14-2024 10:23-0400Diastolic blood hresaufn10 mm[Hg]Renee Dubose LABORER [address]-MEDICAL PSYCHOTHERAPIST Work Phone: [facility]-14-2024 10:23-0400Heart rate 110 /minRenee Dubose LABORER ROAD-MEDICAL PSYCHOTHERAPIST Work Phone: [facility]-14-2024 10:23-0400Systolic blood admalbcw074 mm[Hg]Renee Dubose LABORER [address]-MEDICAL PSYCHOTHERAPIST Work Phone: [facility]-29-2023 11:00-0500Body exkymh060.02 cmAbdul Roberta Other [employer] Other [id number] 11:00-0500Body mass index (BMI) [Ratio] 51.54 kg/h8Cbzkx Roberta Other [employer] Executive Channel Other 11-29-2023 11:00-0500Body ceascajarmq18.4 [degF]Anila Roberta Other [employer] Other 11-29-2023 11:00-0500Body qudzws528 kgAbdul Roberta Other [employer] Other 11-29-2023 11:00-0500Diastolic blood dpazcfqj70 mm[Hg] Anila Roberta Other [employer] Other 11-29-2023 11:00-0500Respiratory rate18 /minAbdul Roberta Other [employer] Other 11-29-2023 11:00-5907GaV0% (BldA) [Mass fraction]96 % Anila Roberta Other [employer] Other 11-29-2023 11:00-0500Systolic blood molikovn844 mm[Hg] Anila Roberta Other [employer] Other 06-12-2023 14:45-0400Body piweyc546.02 cmJustin Anahi Other [employer] Other 06-12-2023 14:45-0400Body mass index (BMI) [Ratio] 49.24 kg/v9Puiaqp Anahi Other [employer] Other 06-12-2023 14:45-0400Body .1 kgJustin Anahi Other [employer] Other 05-08-2023 14:30-0400Body oulzez334.02 cmJustin Anahi Other [employer] Other 05-08-2023 14:30-0400Body mass index (BMI) [Ratio] 50.41 kg/c5Bdhktw Anahi Other [employer] Other 05-08-2023 14:30-0400Body .09 kgJustin Anahi Other [employer] Other 03-16-2023 15:20-0400Body iafcux518.02 cmAbdul Roberta Other [employer] Other 03-16-2023 15:20-0400Body mass index (BMI) [Ratio] 48.35 kg/p0Qzpdq Roberta Other [employer] Other 03-16-2023 15:20-0400Body didynfbdjzh97.4 [degF]Anila Roberta Other [employer] Other 03-16-2023 15:20-0400Body idptao685.83 kgAbdul Roberta Other [employer] Other 03-16-2023 15:20-0400Diastolic blood sxigszqv99 mm[Hg] Anila Roberta Other [employer] Other 03-16-2023 15:20-0400Respiratory rate18 /minAbdul Roberta Other [employer] Other 03-16-2023 15:20-7554WjL3% (BldA) [Mass fraction]99 % Anila Roberta Other [employer] Other 03-16-2023 15:20-0400Systolic blood thiqrcej529 mm[Hg] Anila Roberta Other [employer] Other 09-12-2022 15:40-0400Body .02 cmAbdul Roberta Other [employer] Other 09-12-2022 15:40-0400Body mass index (BMI) [Ratio] 50.37 kg/a4Ufbwd Roberta Other [employer] Other 09-12-2022 15:40-0400Body pnjlbaingtv52.6 [degF]Anila Roberta Other [employer] Other 09-12-2022 15:40-0400Body lyzaaw183 kgAbdul Roberta Other [employer] Other 09-12-2022 15:40-0400Diastolic blood ykqcookd45 mm[Hg] Anila Roberta Other [employer] Other 09-12-2022 15:40-0400Respiratory rate18 /minAbdul Roberta Other [employer] Other 09-12-2022 15:40-6872JrB8% (BldA) [Mass fraction]96 % Anila Roberta Other [employer] Other 09-12-2022 15:40-0400Systolic blood xhdulnek034 mm[Hg] Anila Roberta Other [employer] Other 05-23-2022 15:30-0400Body .02 cmThomas Olexa Other [employer] Other 05-23-2022 15:30-0400Body mass index (BMI) [Ratio] 49.95 kg/x1Ebcepm Olexa Other [employer] Other 05-23-2022 15:30-0400Body rphyyj382.92 kgThomas Olexa Other [employer] Other 03-03-2022 15:40-0500Body cjtfak017.02 cmAbdul Roberta Other [employer] Other 03-03-2022 15:40-0500Body mass index (BMI) [Ratio] 50.66 kg/y9Ycpxm Roberta Other [employer] Other 03-03-2022 15:40-0500Body hwzhda025.73 kgAbdul Roberta Other [employer] Other 03-03-2022 15:40-0500Diastolic blood ofewagop94 mm[Hg] Anila Roberta Other [employer] Other 03-03-2022 15:40-0500Respiratory rate18 /minAbdul Roberta Other [employer] Other 03-03-2022 15:40-9120OlZ7% (BldA) [Mass fraction]96 % Anila Roberta Other [employer] Other 03-03-2022 15:40-0500Systolic blood sbhunczn880 mm[Hg] Anila Roberta Other [employer] Other Encounters Encounter DateEncounter TypeCare ProviderFacilityStart: 03-29-2025 End: 79-43-8885Nrxvwt outpatient visit 25 minutesMargarito Moon MD Work Phone: noms David EndocrinologyComment on above:Type 2 diabetes mellitus without complication, with long-term current use of insulin (HCC) (PrimaryDx); Acquired hypothyroidism; Mixed hyperlipidemia; Encounter for dietary consultation; Insulin long-term use (HCC); Encounter for fitting or adjustment of insulin pump; Insulin pump in place; Class 3 severe obesity due to excess calories with serious comorbidity and body mass index (BMI) of45.0 to 49.9 in adult ([facility]-HCC)Start: 03-29-2025 End: 28-35-6615lvygwujqeuEQNVK F SABBAGHNot AvailableStart: 03-29-2025 End: 54-85-2832Tvxdmkjennifer Moon MD Work Phone: noms David EndocrinologyStart: 03-29-2025 End: 49-49-8547Jdxkvnneha Moon MD Work Phone: noms David EndocrinologyStart: 03-09-2025 End: 96-67-6931Echifbbmde and management of inpatientMicpatric WhyteKan Olukarthikeyan DO-[facility] [place] [facility] Work Phone: Start: 93-13-8606Exq-patient / Non-visitMicpatric Jenkins MD-[facility] Infect Dis Work Phone: Start: 94-09-9361Kzhgqxaunm Nina Moya MD- [facility]ound [facility] [place] Work Phone: Start: 02-21-2025 End: 60-75-2236pputdosvsqYOP [facility] Work Phone: Start: 02-21-2025 End: 76-48-1851Bccufro encounter procedureLeticia Calderon APRN-[facility] Neurology [place] Work Phone: Start: 02-10-2025 End: 14-53-8747Qviwpa flowsAiyana Nickerson Farhan DPM Work Phone: noMS CI PODIATRYStart: 02-10-2025 End: 37-07-8410Deyznt flowsAiyana Liya Romero DPM Work Phone: noMS CI PODIATRYStart: 02-10-2025 End: 92-17-5102Lcyocww encounter procedureDianemc Romero DPM Work Phone: noMS CI PODIATRYComment on above:Diabetes mellitus due to underlying condition with diabetic polyneuropathy, with long-term current u se of insulin (HCC) (Primary Dx); Pain due to onychomycosis of toenails of both feetStart: 02-10-2025 End: 10-98-9462irmuqnxdtiQSDDZBIJ A BROWNNot AvailableStart: 02-02-2025 End: 55-38-9970Kwkefn Sheldon Olmedo MD Work Phone: N[facility] [place] AllergyStart: 02-02-2025 End: 28-69-8523Jqzfze Sheldon Olmedo MD Work Phone: NOWH [place] AllergyStart: 02-02-2025 End: 89-33-8478Ujyevqc encounter procedureJeanna Olmedo MD Work Phone: [facility] [place] AllergyComment on above:Adverse effect of penicillin, subsequent encounter (Primary Dx)Start: 02-02-2025 End: 53-76-1621xihxukemrbOQCN E RAMBASEKNjean claude AvailableStart: 38-38-6790Zvmhccbgya Nina Moya MD-[facility] [place] Work Phone: Start: 12-28-2024 End: 43-58-3370Cywdyu outpatient visit 25 minutesMargarito Moon MD Work Phone: NOOI [place] EndocrinologyComment on above:Type 2 diabetes mellitus without complication, with long-term current use of insulin (HCC) (PrimaryDx); Acquired hypothyroidism ; Mixed hyperlipidemia ; Encounter for dietary consultation; Insulin long-term use (HCC); Encounter for fitting or adjustment of insulin pump; Insulin pump in place; Class 3 severe obesity due to excess calories with serious comorbidity and body mass index (BMI) of45.0 to 49.9 in adult ([facility]-HCC)Start: 12-28-2024 End: 67-72-9618Zdhtoe Sonia Moon MD Work Phone: NOOM [facility] EndocrinologyStart: 12-28-2024 End: 47-27-7805Bjhpbaneha Moon MD Work Phone: NODG [facility] EndocrinologyStart: 12-28-2024 End: 09-90-4513qkuckdqhwwJRLAJ F SABBAGHNot AvailableStart: 12-09-2024 End: 41-99-6528uekhwgjxmnYUBT [facility] Hospitaltart: 12-06-2024 End: 28-83-9670Nclltg flowsLeo Olmedo MD Work Phone: NOMS SWS ALLStart: 12-06-2024 End: 42-61-1080Ylrtek flowsheetJeanna Olmedo MD Work Phone: NOMS SWS ALLStart: 12-06-2024 End: 14-18-7441Usluur outpatient new 30 minutesToadalberto Olmedo MD Work Phone: NOMS SWS ALLComment on above:Adverse effect of penicillin, initial encounter (Primary Dx); Chronic rhinitisStart: 12-06-2024 End: 17-86-2896iyjnvngcsqZPYW E RAMBASEKNot AvailableStart: 12-02-2024 End: 25-63-0071wejuvwovmjUcbmno Sue Cramer NP-C Work Phone: [facility] Work Phone: Start: 12-02-2024 End: 00-65-3179Lsjrwme encounter procedureAnila Granados MD-[facility] Nephrology [place] Work Phone: Start: 11-25-2024 End: 62-98-5514Otbgybp encounter procedureBenito Liya Farhan DPM Work Phone: noms CI PODIATRYComment on above:Diabetes mellitus due to underlying condition with diabetic polyneuropathy, with long-term current u se of insulin (HCC) (Primary Dx); Pain due to onychomycosis of toenails of both feetStart: 11-25-2024 End: 31-71-7411Aflduh flowsheetBenito Romero DPM Work Phone: noms CI PODIATRYStart: 11-25-2024 End: 88-87-5607Wtabce flowsheetNicbeni Romero DPM Work Phone: noms CI PODIATRYStart: 11-25-2024 End: 47-04-2136jpexupftyrXKORXBGJ A BROWNNot AvailableStart: 11-09-2024 End: 04-89-3011ouqsqlvqhlHnqiwz Sue Cramer TRUCKING SUPERVISOR-C Work Phone: [facility] Work Phone: Start: 11-09-2024 End: 41-34-7218Neraciby ReferredAnn Fournier TRUCKING SUPERVISOR-C Work Phone: [facility]-LAB Path Spec Tomas HospStart: 11-02-2024 End: 04-40-3995slzvxinetcSssoqu VargasFacility:[facility] Start: 11-02-2024 End: 97-53-9725Mpelvbkzop Nina Moya MD-Wound Care [facility] Work Phone: Start: 70-03-1991Mxysplhmmr Andres Fournier TRUCKING SUPERVISOR-C Work Phone: [facility]-Wound Care [facility] Work Phone: Start: 10-22-2024 End: 95-63-3971bwkczllilyFwppuz Sue Cramer TRUCKING SUPERVISOR-C Work Phone: [facility] Work Phone: Start: 10-22-2024 End: 15-89-7969Veanjxxj ReferredAnn Fournier TRUCKING SUPERVISOR-C Work Phone: [facility]-LAB Path Spec Tomas HospStart: 62-62-2470Mwhzhkbbnh and management of inpatientSAMER J [facility] Centertart: 38-51-0738Dmpvammmzc and management of inpatientSAMER J [facility]tart: 10-06-2024 End: 86-77-2296Uhficmueee and management of inpatientJEFFERY [facility] Centertart: 09-28-2024 End: 94-50-1423Vhtkfrjennifer Moon MD Work Phone: noms ENDOCRINOLOGYStart: 09-28-2024 End: 13-27-9452Jrakuvneha Moon MD Work Phone: noms ENDOCRINOLOGYStart: 09-28-2024 End: 70-20-7620ldzewqcqycEFFEO F SABBAGHNot AvailableStart: 09-28-2024 End: 92-23-4794Kphskk outpatient visit 25 minutesMargarito Moon MD Work Phone: noms ENDOCRINOLOGYComment on above:Type 2 diabetes mellitus without complication, with long-term current use of insulin (Primary Dx); Acquired hypothyroidism (CMS/HCC); Mixed hyperlipidemia (CMS/HCC); Encounter for dietary consultation; Insulin long-term use (CMS/HCC); Encounter for fitting or adjustment of insulin pump; Insulin pump in place; Class 3 severe obesity due to excess calories with serious comorbidity and body mass index (BMI) of50.0 to 59.9 in adultStart: 48-28-8278Xzj-patient / Non-visit Ann JONESC Work Phone: [facility] Work Phone: Start: 18-54-5248Ifczednaoq Andres Fournier NP-C Work Phone: [facility] [place] Work Phone: Start: 08-21-2024 End: 04-26-7694Ucbwsefij department patient visitAnn Fournier TRUCKING SUPERVISOR-C Work Phone: [facility]-Emergency Room Work Phone: Start: 71-03-5764Pvmttvoavl RecurringAnn Fournier TRUCKING SUPERVISOR-C Work Phone: [facility] Work Phone: Start: 08-12-2024 End: 19-76-6411Vetmjjf encounter procedureBenito Romero DPM Work Phone: noms CI PODIATRYComment on above:Diabetes mellitus due to underlying condition with diabetic polyneuropathy, with long-term current u se of insulin (CMS/[facility]) (Primary Dx); Pain due to onychomycosis of toenails of both feetStart: 08-12-2024 End: 30-16-6110Zeupxy flowsheetBenito Romero DPM Work Phone: noms CI PODIATRYStart: 08-12-2024 End: 58-51-9962Ikcphb Gabriela Romero DPM Work Phone: noms CI PODIATRYStart: 08-12-2024 End: 16-96-3845mwinamqawuTZBCEYSI A BROWNNot AvailableStart: 08-11-2024 End: 18-49-2672Fcjfecnii department patient visitAnn Fournier TRUCKING SUPERVISOR-C Work Phone: [facility]-Emergency Room Work Phone: Start: 08-10-2024 End: 64-99-3779Vfztkm outpatient visit 15 minutesAnnsharlene HO Work Phone: ana BELLEVUEComment on above:Tremor (Primary Dx); Lumbar back pain; Lumbar radiculopathy; Migraine without aura and without status migrainosus, not intractable (CMS/[facility]) Start: 08-10-2024 End: 34-53-3741hymsmdsmqhFSKU HILLNot AvailableStart: 08-02-2024 End: 55-28-1018Arrssjgfn encounterMargarito Moon MD Work Phone: noms ENDOCRINOLOGYComment on above:Med RefillStart: 34-22-5961Ityqntufqk RecurringMichaelliya VelaJosefina TRUCKING SUPERVISOR-C Work Phone: [facility] Work Phone: Start: 18-76-0024carterujekMTCX [facility] Hospitaltart: 05-04-2024 End: 47-14-9290Uuhfsewg Result EncounterTroy Moya MD Work Phone: noms External Department UnsolicitedStart: 05-04-2024 End: 06-71-7931Tiqxuipr Result EncounterTroy Carr MD Work Phone: noms External Department UnsolicitedStart: 05-03-2024 End: 29-83-7897Cbhrcjgy Result EncounterTroy Moya MD Work Phone: noms External Department UnsolicitedStart: 05-03-2024 End: 42-58-5331Tarsuooq Result Cyrus Carr MD Work Phone: noms External Department UnsolicitedStart: 05-03-2024 End: 68-12-0800rmnzknllbgQrdxti VargasFacility:[facility] Start: 04-08-2024 End: 11-70-4167Kdxtli flowsAiyana Romero DPM Work Phone: noms CI PODIATRYStart: 04-08-2024 End: 53-10-5824Faugka Gabriela Romero DPM Work Phone: noms CI PODIATRYStart: 04-08-2024 End: 77-09-7555Vnlvrhp encounter procedureBenito Romero DPM Work Phone: noms CI PODIATRYComment on above:Diabetes mellitus due to underlying condition with diabetic polyneuropathy, with long-term current u se of insulin ([facility]) (Primary Dx); Pain due to onychomycosis of toenails of both feetStart: 04-08-2024 End: 35-37-3079ddrcioyqarDJBIBHZW A BROWNNot AvailableStart: 04-05-2024 End: 01-91-5728Dvomqztew department patient visitNP-C Ann Fournier Work Phone: [facility]-Emergency Room Work Phone: Start: 55-15-0914Cgufksobzr RecurringNP-C Ann Fournier Work Phone: [facility]-Wound [facility] [place] Work Phone: Start: 03-19-2024 End: 51-53-1592Exjrkwxz Result EncounterTroy Moya MD Work Phone: noms External Department UnsolicitedStart: 03-19-2024 End: 86-23-9392Wwpgtsgj Result EncounterTroy Carr MD Work Phone: noms External Department UnsolicitedStart: 03-19-2024 End: 48-27-7977Ybdfimlfp encounterYandy [facility]ound Care ClinicStart: 50-95-2251Mrj-patient / Xxs-uvmnuPS-O Ann Fournier Work Phone: [facility] Infectious Disease Work Phone: Start: 03-17-2024 End: 68-98-6812Jhihxvplqk and management of inpatientNP-C Ann Josefina Work Phone: [facility] [place] [facility] Work Phone: Start: 03-16-2024 End: 21-66-5814Jibgahnxi department patient visitNP-C Ann Josefina Work Phone: [facility]-Emergency Room Work Phone: Start: 03-10-2024 End: 40-80-6633rdsvdjrwfeEPQRAZG WOZNIAKPKilo [facility] Hospitaltart: 03-10-2024 End: 59-47-0237Wopjumg encounter Ioana Nicole LABORER ROAD-MEDICAL PSYCHOTHERAPIST Work Phone: [facility] - Wound Care ClinicComment on above:Non-pressure chronic ulcer of skin of 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 ([facility]-HCC) (Primary Dx); Cellulitis, abdominal wallStart: 03-03-2024 End: 74-64-3799Xclhkbnkf department patient visitPAMELA S [facility]: 03-03-2024 End: 53-60-0721eiyrmdjgbcFZWP P [facility]ALLYNGerman Hospitaltart: 03-03-2024 End: 93-91-4453Vjpyehi encounter Ioana Nicole LABORER ROAD-MEDICAL PSYCHOTHERAPIST Work Phone: [facility] - Wound Care ClinicComment on above:Non-pressure chronic ulcer of skin of 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 ([facility]-HCC) (Primary Dx); Cellulitis, abdominal wallStart: 02-27-2024 End: 72-03-8809Leyexckmbn and management of inpatientVERN D LYDIAGerman Hospitaltart: 02-20-2024 End: 91-96-6392Yjfcyimqbt and management of inpatientMichael P Nevercelestekas DO Work Phone: [facility] - Acute Care Comment on above:Wound infection (Primary Dx)Start: 02-20-2024 End: 32-44-4266Aswtvng encounter Ioana Nicole LABORER ROAD-MEDICAL PSYCHOTHERAPIST Work Phone: [facility] - Wound Care ClinicComment on above:Cellulitis, abdominal wall (Primary Dx)Start: 02-20-2024 End: 43-02-4064xvnvraoyiuTWVS P [facility]YGerman Hospitaltart: 02-13-2024 End: 04-41-3643zjlrmwhaeiUANW P [facility]tart: 02-13-2024 End: 86-51-3091Pcnykdw encounter Ioana Nicole LABORER ROAD-MEDICAL PSYCHOTHERAPIST Work Phone: [facility] - Wound Care ClinicComment on above:Non-pressure chronic ulcer of skin of 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 (CMS-HCC) (Primary Dx); Spider bite wound, accidental or unintentional, subsequent encounterStart: 02-06-2024 End: 53-49-5442Ejjcdcx encounter Ioana Nicole LABORER ROAD-MEDICAL PSYCHOTHERAPIST Work Phone: [facility] - Wound Care ClinicComment on above:Non-pressure chronic ulcer of skin of 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 (CMS-HCC) (Primary Dx); Spider bite wound, accidental or unintentional, subsequent encounterStart: 02-06-2024 End: 18-38-9141sueyxuxlziNCMS P [facility]YGerman Hospitaltart: 01-30-2024 End: 02-52-4115geprcrkgjkIWWC P [facility] HospitalStart: 01-30-2024 End: 02-85-7344Mokafs outpatient new [address]-MEDICAL PSYCHOTHERAPIST Work Phone: [facility] - Wound Care ClinicComment on above:Non-pressure chronic ulcer of skin of 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 ([facility]-HCC) (Primary Dx); Spider bite wound, accidental or unintentional, initial encounterStart: 01-30-2024 End: 20-32-8341xtkcvkvghgJKMX P [facility]Av[facility] HospitalStart: 01-29-2024 End: 22-58-1938Wsnqbe flowsAiyana Romero DPM Work Phone: NOMS CI PODIATRYStart: 01-29-2024 End: 14-22-9668Rzhzmq flowsAiyana Romero DPM Work Phone: [facility] CI PODIATRYStart: 01-29-2024 End: 71-09-1269Pkrtxgt encounter procedureBenito Romero DPM Work Phone: N[facility] CI PODIATRYComment on above:Diabetes mellitus due to underlying condition with diabetic polyneuropathy, with long-term current u se of insulin ([facility]) (Primary Dx); Onychomycosis; Toe pain, left; Toe pain, rightStart: 01-21-2024 End: 52-08-1348Bmmhrl flowsheetManolo Sanchez DO Work Phone: NOMS RICHARD GENSStart: 01-21-2024 End: 62-28-8425Foowrw flowsheetManolo Sanchez DO Work Phone: NOMS Yumiko GENSStart: 01-21-2024 End: 04-89-8704Fdklkm outpatient new 30 minutesKyle Daniel DO Work Phone: [facility] GENSComment on above:Chronic wound infection of abdomen, initial encounter (Primary Dx)Start: 10-09-2023 End: 96-15-3791hvlwinjhwuZS-C Ann Fournier Work Phone: [facility] Work Phone: Start: 10-09-2023 End: 79-85-9658Tfnycjy encounter procedureNP-C Ann Fournier Work Phone: [facility] Nephrology [place] Work Phone: Start: 11-46-7470Mtn-patient / Xjy-mblbqXM-Q Ann Fournier Work Phone: [facility] Work Phone: Start: 09-10-2023 End: 01-88-0635Eiqivprqy encounterLauren Venia CMAProMedica Physicians General SurgeryStart: 09-09-2023 End: 49-65-7750Irjmiv OnlyNot In System Ref ProvProMedica Physicians General SurgeryStart: 48-45-3908Akvkjn OnlyJeni Bonilla RMAProMedica Physicians General SurgeryComment on above:Dysphagia, unspecified typeStart: 09-03-2023 End: 33-54-9408zgclncujmnMW-C Ann Fournier Work Phone: [facility] Work Phone: Start: 09-03-2023 End: 36-97-2270Gzcmzuyb ReferredNP-C Ann Josefina Work Phone: [facility]-LAB Path Spec [facility] HospStart: 03-03-7221mwaxycyqysVSPUJCOakBend Medical Center Ambulatory [facility] Start: 08-14-2023 End: 59-77-4353lgolfzulstOUXDSVDFranciscan Health Dyer [facility] Start: 08-14-2023 End: 93-99-8919Nxxczp outpatient new [address]-MEDICAL PSYCHOTHERAPIST Work Phone: [facility] Physicians General SurgeryComment on above: Dysphagia, unspecified type (Primary Dx); Personal history of ovarian cancer; Morbid obesity with BMI of 45.0-49.9, adult ([facility])Start: 03-11-0184Hgzwrp outpatient visit 15 minutesAbdul QadirFPG NephrologyStart: 04-30-2023 End: 90-72-7534skcxnwibfdPO-C Ann Tash Fournier Work Phone: [employer] Other Start: 04-30-2023 End: 65-33-6870Zpnhjxe encounter procedureNP-C Ann Josefina Work Phone: [facility]-Lab Main [place] Work Phone: Start: 11-11-2022(Proc F/U) Procedure F/UJustin Anahi Hernandez OrthopedicsStart: 11-11-2022 End: 59-21-0749umbsljmbuuJrhisc Anahi Other [employer] Other Start: 10-24-2022 End: 39-45-5757khcphzpmzdApwgdt Olexa Other [employer] Other Start: 03-58-2431Ubjbfsfli encounterThomas OlexaFPG David OrthopedicsStart: 10-07-2022 End: 02-33-1150rzncgfteqyBoqvfz Kelley Other [facility] [employer] Other Start: 70-76-6463Xtegda outpatient visit 15 minutes Misha Hernandez OrthopedicsStart: 09-23-2022 End: 86-75-0210tuiexgxkruWS Arthur Olexa Work Phone: [facility] Work Phone: Start: 09-23-2022 End: 86-44-3105Ebwjfrl encounter procedureMD Arthur Olexa Work Phone: [facility] Start: 08-19-2022 End: 07-76-9163Bcwrdxu encounter procedureMD Arthur Olexa Work Phone: [facility] [place] [facility] Start: 08-19-2022 End: 45-02-1103iypzaldaxlHU Arthur Olexa Work Phone: [facility] Work Phone: Start: 01-45-3939Zypqzy outpatient new 30 minutes Arthur Hernandez OrthopedicsStart: 08-15-2022 End: 85-39-1498xyxtswkwkjDpwar Roberta Other [facility] [employer] Other Start: 57-38-8537Jwndwo outpatient visit 25 minutes Anila QadirFPG Nephrology ClydeStart: 08-13-2022 End: 53-24-6672zeiszwpcmzMWHEQ QADIRFacility:C8Ikijl: 07-08-2022 End: 35-83-8257xwrnszqolhQfeuwo ZieberFacility:H9Tzzaz: 05-13-2022 End: 85-58-3141yysxfrkvuyKHVOYA CRAMERFacility:V0Ieepu: 02-11-2022 End: 28-37-1850fcjgzgnyheToich Roberta Other [place] [employer] Other Start: 72-60-0207Udenrf outpatient visit 25 minutes Anila QadirFPG Nephrology ClydeStart: 02-06-2022 End: 66-11-7806mkwcujogzoFHSQEI JOSEFINAFacility:O6Fabxt: 10-22-2021 End: 07-91-9408jchfaivvkxNvdibs Olexa Other [employer] Other Start: 40-18-1863Jtczhe outpatient new 30 minutes Arthur Hernandez OrthopedicsStart: 09-07-2021 End: 58-92-7734mxstrdfakgBSXVUU JOSEFINAFacility:R9Iymmv: 09-04-2021 End: 98-38-5704pagexnqkikEL AZEEM RIGGINSFacility:F3Obqst: 08-29-2021 End: 11-24-3570mvwbnlgqosNWHUTQ SAMSA .Facility:Z2Jdgzd: 08-02-2021 End: 25-35-3780pysbdnohdbDkqcq Roberta Other [employer] Other Start: 03-32-4277Nansfv outpatient visit 15 minutes Anila QadirFPG Nephrology ClydeStart: 11-09-2020 End: 17-08-0426iicsspbhydYAJTNZG HOYFacility:UTMCStart: 10-31-2020 End: 30-49-8553vtqygxsejkMZDIKIQ HOYFacility:UTMCStart: 43-34-7858Riufkxwizl ANTONIO LYSTERFacility:1532Start: 95-65-8355XinwjzrghfLljvethl:9507 Procedures DateProcedureProcedure DetailPerforming ClinicianStart: 29-06-2379Kqhf bld gluc mntr dev cleared fda spec home useMargarito Moon MD Work Phone: Start: 09-17-5334EQ of abdomen and pelvis without contrastAnn Fournier NP-Leo Work Phone: Start: 66-36-1926Mqccwtfechj Panel (PCR)Ann Fournier TRUCKING SUPERVISOR-C Work Phone: Start: 26-39-8741Swzj bld gluc mntr dev cleared fda spec home useMargarito Moon MD Work Phone: Start: 97-58-5776Xpzmj cultureAnn Fournier TRUCKING SUPERVISOR-C Work Phone: [phone]-art: 25-78-6985Bslqq cultureAnn Fournier TRUCKING SUPERVISOR-C Work Phone: [phone]-art: 76-72-0861Psln bld gluc mntr dev cleared fda spec home useMargarito Moon MD Work Phone: Start: [phone] tomography of abdomen and pelvis with contrastAnn Fournier [employer]UCKING SUPERVISOR-C Work Phone: Start: [phone] POCT GLUCAlvina Moya MD Work Phone: Start: [id number] POCT GLUCAlvina Moya MD Work Phone: Start: [phone] POCT GLUCAlvina Moya MD Work Phone: Start: [id number] POCT GLUCAlvina Moya MD Work Phone: Start: [phone] POCT GLUCAlvina Moya MD Work Phone: Start: 05-03-2024 End: 44-38-9764BXFXFMV POCT GLUCAlvina Moya MD Work Phone: Start: 00-91-4070KTFWHTE POCT GLUCAlvina Moya MD Work Phone: Start: 05-03-2024 End: 64-35-7715IFCKAOB POCT GLUCOMETERSTroy Moya MD Work Phone: Start: 05-03-2024 End: 58-84-9490ENYYUBI POCT GLUCOMETERSTroy Moya MD Work Phone: Start: 04-63-7304Gsnqvhve tomography of abdomen and pelvis with contrastNP-C Ann Fournier Work Phone: Start: 95-48-4838Xtggd chest X-rayNP-C Ann Fournier Work Phone: Start: 62-49-9904VNKBKUK CULTURETroy Moya MD Work Phone: Start: 00-93-8559TRJEXTJDX Amilcar Moya MD Work Phone: Start: 50-04-5561MpzosveuyybNC-Leo Fournier Work Phone: Start: 78-71-8083Tktfxdsvansxd of transfusion reaction TRUCKING SUPERVISOR-C Ann Fournier Work Phone: Start: 52-52-4147Dfiaiuu microbial cultureNP-C Ann Fournier Work Phone: [phone]-art: 13-57-0999VB of abdomen and pelvis without contrastNP-C Ann Fournier Work Phone: [phone]-art: 47-80-0524Tnzqfwm microbial cultureNP-C Ann Fournier Work Phone: [phone]-art: 46-98-9418Prdzr culture for bacteria, including anaerobic screenNP-C Ann Fournier Work Phone: Start: 66-28-1837FVMGUZQ Caesar Nicole LABORER ROAD-MEDICAL PSYCHOTHERAPIST Work Phone: Start: 03-03-2024 End: 45-59-3246WEBQNYN Caesar Nicole LABORER ROAD-MEDICAL PSYCHOTHERAPIST Work Phone: Start: 90-16-0748Muwc bld gluc mntr dev cleared fda spec home useKalestu Mayberry MD Work Phone: Start: 90-72-6055Bspv bld gluc mntr dev cleared fda spec home useGhanshyam Mayberry MD Work Phone: Start: 59-74-5865Ccomsyssiphvw metabolic panel Balaji Amaya MD Work Phone: Start: 42-55-6878Bsqe bld gluc mntr dev cleared fda spec home useGhanshyam Mayberry MD Work Phone: Start: 70-07-5844Sxvg bld gluc mntr dev cleared fda spec home useGhanshyam Mayberry MD Work Phone: Start: 02-26-2024 End: 10-89-2914Imkgimwrygyqq metabolic panelBalaji Amaya MD Work Phone: Start: 02-95-9880Qlsm bld gluc mntr dev cleared fda spec home useGhanshyam Mayberry MD Work Phone: Start: 06-20-6220Wjdx bld gluc mntr dev cleared fda spec home useGhanshyam Mayberry MD Work Phone: Start: 98-95-5553Ihrf bld gluc mntr dev cleared fda spec home useGhanshyam Mayberry MD Work Phone: Start: 15-32-5760Mxdqlinuizzgo metabolic panelAngela Iker LABORER ROAD-MEDICAL PSYCHOTHERAPIST Work Phone: Start: 34-79-0717Xcxo bld gluc mntr dev cleared fda spec home useGhanshyam Mayberry MD Work Phone: Start: 98-94-4460Zoqu bld gluc mntr dev cleared fda spec home useGhanshyam Mayberry MD Work Phone: Start: 68-20-9870Muk bact xcpt urine blood/stool aerobic isolBalaji Amaya MD Work Phone: Start: 02-24-2024 End: 82-81-6286SPHGEOCBEWJ ABDOMENBalaji Amaya MD Work Phone: Start: 02-24-2024 End: 12-12-3236FKPOVXMM DRAINAGE Markie Amaya MD Work Phone: Start: 51-30-7603Yxzd bld gluc mntr dev cleared fda spec home useGhanshyam Mayberry MD Work Phone: Start: 78-06-9990Fetz bld gluc mntr dev cleared fda spec home useGhanshyam Mayberry MD Work Phone: Start: 66-88-4845Icliqmpasnubc metabolic panel Balaji Amaya MD Work Phone: Start: 89-61-9041Gfdt bld gluc mntr dev cleared fda spec home useGhanshyam Mayberry MD Work Phone: Start: 53-68-3132Fkck screen quantitative vancomycin Leticia Dong LABORER ROAD-MEDICAL PSYCHOTHERAPIST Work Phone: Start: 29-74-5173Isic bld gluc mntr dev cleared fda spec home useGhanshyam Mayberry MD Work Phone: Start: 45-81-3586Qzug bld gluc mntr dev cleared fda spec home useGhanshyam Mayberry MD Work Phone: Start: 75-67-5444Vvhyswybwmhwt metabolic panel Balaji Amaya MD Work Phone: Start: 25-09-7425Gfyo bld gluc mntr dev cleared fda spec home useGhanshyam Mayberry MD Work Phone: Start: 67-82-7358Qkct bld gluc mntr dev cleared fda spec home useGhanshyam Mayberry MD Work Phone: Start: 18-54-1266Lxyj bld gluc mntr dev cleared fda spec home useGhanshyam Mayberry MD Work Phone: Start: 54-66-4410Bgexduwjtczsl metabolic panel Balaji Amaya MD Work Phone: Start: 00-99-4285Nyqz bld gluc mntr dev cleared fda spec home useGhanshyam Mayberry MD Work Phone: Start: 12-24-5333Ncyy bld gluc mntr dev cleared fda spec home useGhanshyam Mayberry MD Work Phone: Start: 31-39-2609Laaiq of free thyroxineMichael P Neverauskas DO Work Phone: Start: 60-38-2390Iali bld gluc mntr dev cleared fda spec home useGhanshyam Mayberry MD Work Phone: Start: 35-69-3354Vftgrclfsmtgi metabolic panel Balaji Amaya MD Work Phone: Start: 16-45-0301Qdzt bld gluc mntr dev cleared fda spec home useGhanshyam Mayberry MD Work Phone: Start: 02-20-2024 End: 72-77-6854Mkxnzqv bacterial blood aerobic w/id Eduardo Dong LABORER ROAD-MEDICAL PSYCHOTHERAPIST Work Phone: Start: 93-06-8541Prw bact xcpt urine blood/stool aerobic isolGhanshyam Mayberry MD Work Phone: Start: 80-93-1159W-reactive proteinMichael P Neverauskas DO Work Phone: Start: 08-30-1821Qthgvnkqalodg metabolic panelMichael P Neverauskas DO Work Phone: Start: 68-92-9451Ifz bact xcpt urine blood/stool aerobic isolMichael P Neverauskas DO Work Phone: Start: 46-25-6398LMYKPQB COMMUNICATIONJayleen Nicole LABORER ROAD-MEDICAL PSYCHOTHERAPIST Work Phone: Start: 99-05-2520VKRAMSW COMMUNICATIONJayleen Damico Bonnie LABORER ROAD-MEDICAL PSYCHOTHERAPIST Work Phone: Start: 85-93-8164YRAOPGI COMMUNICATIONNakiay P Bonnie LABORER ROAD-MEDICAL PSYCHOTHERAPIST Work Phone: Start: 09-02-3014AdxubmjxvfcnxnnutcdeczufrpIqorjzx A Carroll LABORER ROAD-MEDICAL PSYCHOTHERAPIST Work Phone: Start: 17-09-3231Bwdbg i surg pathology gross examination onlyNot In System Ref ProvStart: 85-89-9240XULL REHAB GLUCOSENot In System Ref ProvStart: 05-61-1534U-ray of left kneeMD Arthur Moy Work Phone: Start: 81-67-6704Jduij X-ray of right shoulderMD Arthur Olexa Work Phone: Start: 27-93-0317U-ray of cervical spineMD Arthur Olexa Work Phone: Replacement of total knee jointAbdul Roberta Other Plan of Treatment DateCare ActivityDetailAuthorStart: 06-28-2025 End: 21-30-6864Vlzvuip encounter bxcjwahac05/27/2026 2:10 PM EST Office Visit [facility] [address] [place] [address] Margarito Moon MD [address] [place] [address] [facility]ocrinologyStart: 05-05-2025 End: 99-16-0359Nbkxpiu encounter trineiicz53/04/2025 1:00 PM EST Office Visit [facility] [address] [facility] [address] [place] [address] Benito Romero, DPM [address] [facility] 5 [place] [address] [facility] PODIATRYStart: 03-29-2025 End: 26-62-3292Idlthnk encounter procedureNOMS [facility] EndocrinologyComment on above:Type 2 diabetes mellitus without complication, with long-term current use of insulin (HCC)Start: 44-56-6881EitpndmmvBucyrus Community Hospitaltart: 87-90-1261Babtkfor to infectious diseases physicianBucyrus Community Hospitaltart: 80-64-3134Dffyezq ScreeningTobacco ScreeningMercy Health St. [facility] Start: 03-09-2025 End: 18-99-8669KmuzwxjckBucyrus Community Hospitaltart: 42-24-7937Glauhojc admissionBucyrus Community Hospitaltart: 24-56-6478BrbezjobtBucyrus Community Hospitaltart: 37-30-7537Iqbksjaj identified in Blood by CultureBlood CultureBucyrus Community Hospitaltart: 14-70-3901Oxerl BMI Screening Adult BMI ScreeningNovant Health Clemmons Medical Centertart: 33-62-3331Mvxpjbe Screening Tobacco ScreeningNovant Health Clemmons Medical Centertart: 69-20-1267Xwmtm BMI Screening Adult BMI ScreeningNovant Health Clemmons Medical Centertart: 16-17-4172Bezez BMI Screening Adult BMI ScreeningNovant Health Clemmons Medical Centertart: 42-83-8623Ircszfn Screening Tobacco ScreeningNovant Health Clemmons Medical Centertart: 02-10-2025 End: 72-62-6682Sowaruc encounter procedureNOMS CI PODIATRYComment on above: Diabetes mellitus due to underlying condition with diabetic polyneuropathy, with long-term current use of insulin (HCC) (Primary Dx); Pain due to onychomycosis of toenails of both feetStart: 02-02-2025 End: 31-39-9729Iwfmozs encounter procedureNOMS SWS ALLComment on above:Arrived Start: 30-17-8160Dsejoxz ScreeningTobacco ScreeningNovant Health Clemmons Medical Centertart: 01-05-2025 End: 08-48-3555Wtcvuuc encounter /06/2025 2:20 PM EDT Office Visit [facility]ITT[facility] MOURA [address] [place] [address] Angelia Worley PA [address] [place], [place] [address] BRITTANY ARTtart: 12-28-2024 End: 23-69-4792Sbmtdoe encounter procedureNOMS SH ENDOCRINOLOGYComment on above: Type 2 diabetes mellitus without complication, with long-term current use of insulin (HCC)Start: 12-06-2024 End: 12-74-2258Vuwuzvjjld V IgEPenicillin V IgE Lab Routine Adverse effect of penicillin, initial encounter Expected: 12/06/2024 (Approximate), Expires: 12/06/2025[facility] Work Phone: Comment on above:Expected: 12/06/2024 (Approximate), Expires: 12/06/2025Start: 12-06-2024 End: 37-98-1927Uuhhssl encounter procedureNOMS SWS ALLComment on above:Arrived Start: 11-25-2024 End: 22-72-0469Comuvfv encounter bavoubiyr54/26/2025 2:10 PM EDT Office Visit [facility] [address] [facility] [address] [place] [address] Benito Romero DPM [address] [address] Diabetes mellitus due to underlying condition with diabetic polyneuropathy, with long-term current use of insulin (HCC) (Primary Dx); Pain due to onychomycosis of toenails of bothfeetNOMS CI PODIATRYComment on above:Diabetes mellitus due to underlying condition with diabetic polyneuropathy, with long-term current use of insulin (HCC) (Primary Dx); Pain due to onychomycosis of toenails of both feetStart: 34-12-7394Ikuulspe identified in Urine by CultureUrine [facility] Start: 25-31-3767Qgswd [facility] Hospitaltart: 10-22-2024 Urine [facility] Hospitaltart: 33-32-2152Urzkwpyk identified in Urine by CultureUrine [facility] Start: 10-21-2024 End: 28-27-9677Hjwudsm encounter izmrfwyho19/22/2025 1:50 PM EDT Office Visit [facility] [address] [facility] [address] [place] [address] Benito Romero DPM [address] [address] [facility] CI PODIATRYStart: 09-14-2024 End: 19-15-7028Ijmpyhg encounter pyozznnvi17/15/2025 1:20 PM EDT Office Visit [facility] [address] [place] [phone] Margarito Moon MD [address] [place] [address] [facility] ENDOCRINOLOGYStart: 21-26-0173Uzcat BMI ScreeningAdult BMI ScreeningAultman Hospital SystemStart: 16-20-1158Pdxxypq ScreeningTobacco ScreeningAultman Hospital SystemStart: 08-12-2024 End: 37-79-8834Qhoajpq encounter procedureN[facility]S CI PODIATRYComment on above: Diabetes mellitus due to underlying condition with diabetic polyneuropathy, with long-term current use of insulin (CMS/HCC) (Primary Dx); Pain due to onychomycosis of toenails of both feetStart: 08-10-2024 End: 28-68-7229Njyeceq encounter ivbgdhcvs42/11/2025 11:00 AM EDT Office Visit [facility] [place] [address] [place] [address] Angelia Worley PA [address] [place] [address] BRITTANY ARTtart: 08-05-2024 End: 51-70-1606Jgljbqb encounter eqfnbhjys55/06/2025 4:50 PM EST Office Visit [facility] [address] [place] [address] [place] [address] Benito Romero, DPM [address] [address] [facility] CI PODIATRYStart: 06-17-2024 End: 91-64-6250Jxlnsrd encounter iwqxxawwy66/16/2025 1:10 PM EST Office Visit [facility] [address] [place] [address] [place] [address] Benito Romero, DPM [address] [facility] 5 [place] [address] [facility] CI PODIATRYStart: 06-07-2024 End: 28-48-9918Vpyntli encounter ozndlbric11/06/2025 2:30 PM EST Office Visit [facility] [address] [place] [phone] Margarito Moon MD [address] [place] [address] [facility]Start: 04-08-2024 End: 67-51-0834Dsgiaya encounter procedureN[facility]S CI PODIATRYComment on above: Diabetes mellitus due to underlying condition with diabetic polyneuropathy, with long-term current use of insulin (CMS/HCC) (Primary Dx); Pain due to onychomycosis of toenails of both feetStart: 04-07-2024 End: 84-12-5950Mgzmsni encounter gflluxjkg83/06/2024 2:00 PM EST Office Visit [facility] [address] [place] [address] Jayleen Nicole, LAB[address] [address] [place], [place] [facility]ound Care ClinicStart: 03-29-2024 End: 25-08-2875Alxgnta encounter hypxlryij91/28/2024 2:20 PM EDT Office Visit [facility] [address] [place] [address] Angelia Worley PA [address] [place] [address] [facility] ROUTEStart: 09-33-1384MwlqeglykCleveland Clinic Union Hospital CenterStart: 03-19-2024 End: 07-74-4799TevguuczbCleveland Clinic Union Hospital CenterStart: 95-09-7110Wdimgqucucmtc metabolic 2000 panel - Serum or PlasmaCleveland Clinic Union Hospital CenterStart: 83-96-3678JnxgaiswpCleveland Clinic Union Hospital CenterStart: 47-49-9300HjoqwgsonCleveland Clinic Union Hospital CenterStart: 61-04-8243Qsacenyx therapy procedureBucyrus Community Hospitaltart: 29-12-1490Dkxlnlqq to general surgeonBucyrus Community Hospitaltart: 31-87-7254Vykrcbsn to infectious diseases physician [facility] Hospitaltart: 81-12-5318Rwhnlbgb admissionBucyrus Community Hospitaltart: 76-52-7979Swlwcnid identified in Blood by Culture [facility] Hospitaltart: 98-80-4768Ibtuocjs of Abdomen Subcutaneous Tissue and Fascia, Open ApproachExcision of Abdomen Subcutaneous Tissue and Fascia, Open ApproachBucyrus Community Hospitaltart: 74-96-1221Dfvspzsgu of Infusion Device into Superior Vena Cava, Percutaneous ApproachInsertion of Infusion Device into Superior Vena Cava, Percutaneous ApproachBucyrus Community Hospitaltart: 03-10-2024 End: 10-15-4206Aoovxkm encounter mfazhhfkd03/09/2024 3:20 PM EDT Office Visit [facility] [address] [place] [address], [address]-MEDICAL PSYCHOTHERAPIST [address] [place], [place] Renee Art, LABORER ROAD-MEDICAL PSYCHOTHERAPIST [address] [place] [address] [facility] Wound [facility] ClinicStart: 03-03-2024 End: 28-40-3884Nyhiyci encounter /02/2024 10:40 AM EDT Office Visit [facility] Wound [facility] [address] [facility] [address] Jayleen Nicole, LABORER ROAD-MEDICAL PSYCHOTHERAPIST [address] [place] [address] [facility] Hospitaltart: 02-27-2024 End: 74-27-6929Oldkucp encounter procedureOhioHealth [facility]ound [facility] Hospitaltart: 02-20-2024 End: 28-76-6849Wxdbxgb encounter ajeqxdtor62/20/2024 1:40 PM EDT Office Visit [facility] Wound Care [facility] [address] [place] [address] Jayleen Nicole, LABORER ROAD-MEDICAL PSYCHOTHERAPIST 2 [facility], [place] [facility] Hospitaltart: 02-13-2024 End: 69-96-3817Uuaqztu encounter xjjopjssz82/13/2024 9:00 AM EDT Office Visit [facility] Wound [facility] [address] [facility] [place] [address] Jayleen Nicole, LABORER ROAD-MEDICAL PSYCHOTHERAPIST [address] [facility], [place] [facility] Hospitaltart: 02-06-2024 End: 53-09-1315Xglykbj encounter hrxvcrqav01/06/2024 1:40 PM EDT Office Visit [facility] Wound [facility] [address] [facility] [address], [address]-MEDICAL PSYCHOTHERAPIST [address] [facility], [place] [facility] Wound [facility] Hospitaltart: 10-67-4744Rwbbvnsva vaccinationInfluenza VaccineAultman Hospital SystemStart: 01-29-2024 End: 03-82-6046Nfjorzp encounter procedureNOMS CI PODIATRYComment on above: Diabetes mellitus due to underlying condition with diabetic polyneuropathy, with long-term current use of insulin ([facility]) (Primary Dx); Onychomycosis; Toe pain, left; Toe pain, rightStart: 01-21-2024 End: 81-81-0317Ggswjhe encounter dgrkjadlq61/21/2024 10:45 AM EDT Office Visit [facility] [address] [place] [address] DanielManolo arora DO [address] [place] [address] ArrivedNOMS SHERIFFYumiko GENSComment on above: ArrivedStart: 08-14-2023 End: 23-87-7540SN Esophagus Views W contrast POFluoroscopy esophagus Imaging Routine Dysphagia, unspecified type Expected: 08/14/2023, Expires: 08/13/2024 [employer] Work Phone: Comment on above:Expected: 08/14/2023, Expires: 08/13/2024Start: 42-63-6947Kyqvzhstu vaccinationInfluenza VaccineProEncompass Health Rehabilitation Hospital [facility] [place]pe[place] SystemStart: 07-48-2683Nqmkezcoq for malignant neoplasm of cervixPap SmearProSt. Elizabeth HospitalKampyle SystemStart: 18-26-3254LFfU,Tdap and Td Vaccines (1 - Tdap)DTaP,Tdap and Td Vaccines ( - Tdap)[facility] SystemStart: 45-31-5132Igabl BMI Follow Up PlanAdult BMI Follow Up PlanProEncompass Health Rehabilitation [facility] [place] SystemStart: 05-46-9915Gmvfbsmp foot examinationDiabetic Foot ExamProBucyrus Community Hospital SystemStart: 41-13-4098Kyjvfudoyl ScreeningDepression ScreeningProEncompass Health Rehabilitation [facility] [place] SystemStart: 35-32-6879Isnufevc screeningDiabetic Ophthalmology Exam [facility] SystemStart: 30-84-4804Ydjnz screening for proteinUrine MicroalbuminMercy Health St. Anne HospitalAEROBIC CULTUREAEROBIC CULTURE Lab Routine 03/19/2024 5:34 PM EDTKANE COUNTY HUM[facility] RES[facility] Work Phone: ANAEROBIC CULTUREANAEROBIC CULTURE Lab Routine 03/19/2024 5:34 PM EDThom[facility] [place] by [facility]oven[facility] HealthBacteria identified in Tissue by Aerobe cultureTissue culture includes gram stain Microbiology Routine 02/24/2024 3:53 PM EDCleveland Clinic Marymount HospitalBedside Glucose *Place/Obtain serum glucose if >500(>600 MRH) per glucometer.Bedside Glucose *Place/Obtain serum glucose if >500(>600 MRH) per glucometer. Point of Care Testing Routine 4X Daily (AC and at bedtime) until discontinued starting 02/20/2024, 20 completedGeostellar Work Phone: Comment on above:4X Daily (AC and at bedtime) until discontinued starting 02/20/2024, 20 completedBedside Glucose *Place/Obtain serum glucose if >500(>600 MRH) per glucometer.Bedside Glucose *Place/Obtain serum glucose if >500(>600 MRH) per glucometer. Point of Care Testing Routine 4X Daily (AC and at bedtime) until discontinued starting 02/23/2024, 10 completed [employer] Work Phone: Comment on above:4X Daily (AC and at bedtime) until discontinued starting 02/23/2024, 10 completedCBC W Auto Differential panel - BloodCBC auto differential Lab Routine Lab max of 3 days, Daily, for lab use only until discontinued starting 02/21/2024, 7 [facility] HospitalHackPad Comment on above:Lab max of 3 days, Daily, for lab use only until discontinued starting 02/21/2024, 7 completedComprehensive metabolic 2000 panel - Serum or PlasmaComprehensive metabolic panel Lab Routine Lab max of 3 days, Daily, for lab use only until discontinued starting 02/21/2024, 7 completedCentral Vermont Medical CenterHackPadComment on above:Lab max of 3 days, Daily, for lab use only until discontinued starting 02/21/2024, 7 completed End: 62-85-9901UvaktwdazbploxssvqnbtxymmcWGI GI Routine Dysphagia, unspecified type 1 Occurrences starting 08/14/2023 until 08/13/2024[facility] CenterHackPad Comment on above:1 Occurrences starting 08/14/2023 until 08/13/2024Magnesium [Mass/volume] in Serum or PlasmaMagnesium Lab Routine Lab max of 3 days, Daily, for lab use only until discontinued starting 02/21/2024, 7 completedCentral Vermont Medical CenterHackPadComment on above:Lab max of 3 days, Daily, for lab use only until discontinued starting 02/21/2024, 7 completedOxygen Therapy - Maintain SpO2: 90%; *ICING MAKER Guidelines for O2: Yes; Document: \[email or web address]\epi c\EPIC_Reference\Orders\Respiratory Care Guidelines\CPG Oxygen 2022.pdfOxygen Therapy - Maintain SpO2: 90%; *ICING MAKER Guidelines for O2: Yes; Document: \[email or web address]\epic\EPIC_Reference\Orders\Respiratory Care Guidelines\CPG Oxygen 2022.pdf Respiratory Care Routine AsNeeded until discontinued starting 02/20/2024[facility] CompanyComment on above:As Needed until discontinued starting 02/20/2024atient [facility] Work Phone: Patient referralCleveland Clinic Union Hospital Ctr Work Phone: End: 48-02-0705Osaxj oximetry, spot On current oxygen flowPulse oximetry, spot On current oxygen flow Respiratory Care Routine Once for 1 Occurrences starting 02/20/2024 until 02/20/2024[facility] CompanyComment on above:Once for 1 Occurrences starting 02/20/2024 until 4Renal function 1999 panel - Serum or [facility] HospitalRenal function 1999 panel - Serum or PlasmaAkron Children'S Hospital End: 86-78-9549Jabacbaboz, trough To be drawn prior to the 2100 doseVancomycin, trough To be drawn prior to the 2100 dose Lab Routine Once for 1 Occurrences starting 02/27/2024 until 02/27/2024[facility] CompanyComment on above:Once for 1 Occurrences starting 02/27/2024 until 02/27/2024[facility] Immunizations Immunization DateImmunizationNotesCare AakftwzqKtqhgqpj92-41-7588Alyujfrxedvp Conjugate PCV 20Margarito Moon MD Work Phone: NOLiberty HospitalVngdetaipo76-58-9355dodwfp vaccine recombinant Margarito Moon MD Work Phone: noLiberty HospitalVyrgavcqtd56-02-4172qdkqqi vaccine recombinant Margarito Moon MD Work Phone: [employer] Payers DatePayer CategoryPayerPolicy ID2024Medicare [facility] [id number] 2022Medicare [id number] 2022Medicare (Managed Care)[employer] Member Subscriber Plan / Payer (Effective 2021-Present) Name: Marysegary Mary Jane Foy Relation to Subscriber: Self Name: Luiz Suarezsudheer Foy Payer ID: Not on file Group ID: [id number] Type: Not on file Address: [address] [place] [id number] 2018Medicaid [id number] [id number] 2.1.740948.3.57[id number] .1.836782.3.57[id number] .1.267273.3.57[id number] 2..840.1.707948.3.57[id number] 2.840.1.776887.3.57[id number] 2.840.1.666962.3.57[id number] 2.840.1.827556.3.57[id number] 2.840.1.524669.3.57[id number] 2.840.1.151877.3.57[id number] 2.840.1.925712.3.57[id number] 2.840.1.190055.3.57[id number] 2.0.1.627795.3.57[id number] 2.840.1.008154.3.57[id number] 2.0.1.196613.3.57[id number] 2.840.1.511406.3.57[id number] 2.840.1.320974.3.57[id number] 2.840.1.189532.3.57[id number] 2.840.1.739253.3.57[id number] 2.840.1.964058.3.57[id number] 2.16840.1.229856.3.57[id number] 2.840.1.193203.3.57[id number] 2.840.1.433214.3.57[id number] 2.0.1.984355.3.579.2.392238-96-5564Opgdlny22772797 2.0.1.921651.3.579.2.011333-08-5098Awnigzz22343128 2.0.1.589942.3.579.2.025310-51-4692Mefyjeh00315193 2.0.1.535948.3.579.2.975494-00-1774Tzwveoz47185731 2.0.1.475453.3.579.2.841959-84-0321Uvwsivi92731531 2..1.695271.3.579.2.769590-49-4043Cbjosfr57163181 2.840.1.950456.3.579.2.770469-71-0632Jekffwv9472668 2.0.1.512553.3.579.2.509928-76-8729Cnuhveu4264304 2.840.1.066884.3.579.2.815363-00-9059Uxnlmzw6284122 2.840.1.442291.3.579.2.400161-53-8287Yubwjde0534751 [id number] [id number] 1962Unknown [id number] Social History DateTypeDetailFacilityUnknown if ever smokedNorth Executive Channel Other Start: 01-29-2024 End: 27-70-0152Pbi Assigned At BirthNov[facility] Medical Centertart: 85-58-2368Ldj [facility]: 07-27-2018 End: 79-64-7935Thsxxed smoking status NHISNever smoked tobacco (finding) [facility]: 10-21-2022 End: 92-41-8574Flhkqfw use and exposureSmokeless tobacco non-userNOMS Healthcare Start: 01-29-2024 End: 14-21-7964Ccdzbjdoz beverage intakeLifetime non-drinker (finding)[facility] HealthcareStart: 01-29-2024 End: 28-93-3673Kughmmt of Social functionAultman Hospital SystemStart: 39-86-3432Asx assigned at birthNot on fileNOMS HealthcareStart: 08-14-2023 End: 09-47-7441Otbyrkb intakeEx-drinker (finding)[facility] SystemStart: 72-23-5074ImzsbxrstNxzhnddCklYdsbxg Health SystemHas the Shuttersong, gas, oil, or water company threatened to shut off services in your home in past 12MoNo [facility] SystemStart: 01-05-2015 End: 59-76-1625DvzSdacte (finding)[facility] SystemStart: 03-10-2025 End: 79-49-0601NXGK Follow upSDOH [facility]Way[facility] Work Phone: NEGATED: Highlighted rowAkron Children'S HospitalNEGATED: Highlighted rowStart: NINFHistory of tobacco usePassive smokerNOND Healthcare Medical Equipment Procedure CodeEquipment CodeEquipment Original TextEquipment IdentifierDates Start: 11-05-2016 Goals DatePatient GoalDesired Activity/StatePersonal health goalComment on above: Evaluation of progress towards goal: under assessment Functional Status BtrbFoavgabyjfWwsunoGmtjiijp75-83-6599Qftleyyrzd statusPatient at [facility] Work Phone: Mental Status NuemEawycweavdWyhioeEjolgaco61-26-2480Uitvkjwaa functionCognitive Status [facility] at [facility] Work Phone: Clinical Notes 08-02-2021 to 03-29-2025 Note Date & YkajTfatBgktyfqd03-23-2654 History of Present illness Narrative* Margarito Moon MD - 03/29/2025 2:20 PM EDT Images from the original note were not included. Authumn Danii Suarez is a 54 y.o. female No ref. provider found presents with chief complaint of Diabetes and Follow-up HPI: IM : 03/2025 follow up visit on 03/29/2025 , using u-500 inside the pump, ( 12 am 0.65, 4 am 0.75, 8 am 1, 12 pm1.05, 4 pm 1.25. ICR 1:2, ISS 1:20), on Trulicity 4.5 mg once weekly. She was on on Invokana and cause her some problems. IM : 11/2024 follow up visit on 12/28/2024 , using u-500 inside the pump, ( 12 am 0.65, 4 am 0.75, 8 am 1, 12 pm 1.05, 4 pm 1.25. ICR 1:2, ISS 1:20), on Trulicity 4.5 mg once weekly. IM : 08/2024 follow up visit on 09/28/2024 , using u-500 inside the pump, ( 12 am 0.65, 4 am 0.75, 8 am 1, 12 pm 1.05, 4 pm 1.25. ICR 1:2, ISS 1:20), on Trulicity 4.5 mg once weekly. CGM 01-21-70 AVG 241, A1c 9.7 on 07/2024 with her PCP. IM : 02/2024 follow up visit on 02/09/2024, using u-500 inside the pump off now and using 30 units tid per syringes , ( 12 am 0.65, 4 am 0.75, 8 am 1, 12 pm 1.05, 4 pm 1.25. ICR 1:2, ISS 1:20), on Trulicity 4.5 mg once weekly. CGM AVG 233. IM : 10/2023 follow up visit on 10/13/2023 for urgent visit for high bg 473, using u-500 inside the pump off now and using 30 units tid per syringes , ( 12 am 0.65, 4 am 0.75, 8 am 1, 12 pm 1.05, 4 pm 1.25. ICR 1:2, ISS 1:20), on Trulicity 4.5 mg once weekly. IM : 09/2023 follow up visit on 09/01/2023 A1c 13.4, bg 542, using u-500 inside the pump, 12 am 0.65, 4 am 0.75, 8am 1, 12 pm 1.05, 4 pm 1.25. ICR 1:2, ISS 1:20, on Trulicity 4.5 mg once weekly. off insulin for short tram, plan for EGD soon IM : 04/2023 follow up visit on 04/14/2023 A1c 10.9 , bg 389, using u-500 inside the pump, 12 am 0.65, 4 am 0.75, 8 am 1, 12 pm 1.05, 4 pm 1.25. ICR 1:2, ISS 1:20, on Trulicity 4.5 mg once weekly. pump AVG 282, 122-hi. IM : 12/2022 follow up visit on 01/13/2023 A1c 9.4 , bg 140, using u-500 inside the pump, 12 am 0.65, 4 am 0.75, 8 am 1, 12 pm 1.05, 4 pm 1.25. ICR 1:2, ISS 1:20, on Trulicity 4.5 mg once weekly. pump AVG 262, 143-hi. CGM 06-26-73 avg 248. IM : 08/2022 follow up visit on 09/23/2022 A1c 8.4 , bg 232, using u-500 inside the pump, 12 am 0.65, 4 am 0.75, 8 am 1, 12 pm 1.05, 4 pm 1.25. ICR 1:2, ISS 1:40, on Trulicity 4.5 mg once weekly. pump AVG 242, TDD45, 49/51% IM 06/2022 follow up visit on 06/17/2022 A1c 10.4 , bg 270, using u-500 inside the pump, 12 am 0.1, 4 am 0.75, 8 am 1, 12 pm 1.05, 4 pm 1.25. ICR 1:2, ISS 1:50, on trulcity 4.5 mg once weekly. [facility] 56 AVG 228 IM 10/2021 follow up visit on 11/20/2021 A1c 10 , bg 154, using u-500 inside the pump, 12 am 0.7, 4 am 0.75, 8 am 1, 12 pm 1.30, 4 pm 1.25. ICR 1:7, on trulcity 4.5 mg once weekly. CGM 0-20-80 AVG 289 IM 05/2021 follow up visit on 05/16/2021 A1c 8.6, bg 126, using u-500 inside the pump, 12 am 0.7, 4 am 0.75, 8am 1, 12 pm 1.30, 4 pm 1.25. ICR 1:7, ISS 12 AM 30, 8 AM 40, target 110, . pump avg 235, 47/53%, TDD 38 units, on trulcity 3 mg once weekly IM 01/2021 follow up visit on 02/13/2021 A1c 7.5, bg 126, using u-500 insied the pump, 12 am 0.7, 4 am 0.65, 8am 1, 12 pm 1.25, 4 pm 1.25. ICR 1:6, ISS 12 AM 30, 8 AM 40, target 110, CGM 1046-44 AVG 176. pumpavg 222, 32/68%, TDD 59.5 units( equal to almost 300), on trulcity 1.5 mg once weekly HPI: 10/2020 New patient to this office. Last time saw me in the old office. CGM interpretation: 3% low range, 42% in good range, 55% in high range. Insulin pump: 12 AM, 1; 4 AM 0.8; 8 AM 0.65; 12 PM 1.25; 4 PM 1.5. ICR 1:6 and ISS 12 AM 30 and 8 AM 20 and insulin pump downloaded, average 241, 29% basal, 71% bolus, total daily dose 84. She is using Humalog 200. She is morbidly obese. Body mass index 40. She wants to go with U-500 insulin pump. She left the nurse practitioner she used before since she was not able to put her on U-500 and she just upgraded her Trulicity to 3 mg once weekly. SUBJECTIVE: MEDICATIONS: Current Outpatient Medications Medication Instructions albuterol HFA (Ventolin HFA) 90 mcg/act inhaler 2 puffs, 3 times daily allopurinol (ZYLOPRIM) 300 mg, Every 24 hours ascorbic acid (VITAMIN C) 250 mg, Every 24 hours ascorbic acid (VITAMIN C) 250 mg, Daily biotin 10 mg, Daily budesonide-formoterol (Symbicort) 160-4.5 MCG/ACT inhaler 2 puffs, Every 12 hours calcium carbonate (OS-VANI) 1,250 mg, Every 12 hours Calcium Polycarbophil (fiber) 625 MG tablet 2 tablets, Every 6 hours Lake DMT 30-30 MG tablet 30 mg, Daily cholecalciferol (Vitamin D-3) 50 MCG (2000 UT) capsule 1 capsule, Every 24 hours cholecalciferol (VITAMIN D-3) 2,000 Units, Daily RT cinnamon 2,000 mg, Daily RT clindamycin (CLEOCIN) 300 mg, 3 times daily clopidogrel (PLAVIX) 75 mg, Daily Continuous Glucose Sensor (FreeStyle Lisbeth 2 Sensor) misc CHANGE EVERY 14 DAYS. cyclobenzaprine (FLEXERIL) 10 mg, Every 24 hours diclofenac (VOLTAREN) 75 mg, 2 times daily Docusate Sodium (DSS) 250 MG capsule 1 capsule, Daily PRN doxycycline (MONODOX) 100 mg, 2 times daily Dulaglutide 4.5 MG/0.5ML solution auto-injector 1 Dose, Subcutaneous, Weekly Dupilumab (Dupixent) 300 MG/2ML solution auto-injector fenofibrate (TRIGLIDE) 160 mg, Every 24 hours ferrous sulfate 325 mg, Daily with breakfast fexofenadine (ORAL) 180 mg, Daily RT furosemide (LASIX) 40 mg, Daily furosemide (LASIX) 20 mg, 2 times daily HumuLIN R 250 Units, Subcutaneous, Daily indomethacin (INDOCIN) 50 mg, 2 times daily with meals Insulin Disposable Pump (Omnipod DASH Pods, Gen 4,) misc CHANGE POD EVERY 72 HOURS. Inulin 2 g Lactobacillus (Acidophilus) capsule 1 capsule, 3 times daily with meals levoFLOXacin (LEVAQUIN) 250 mg, Daily levothyroxine (SYNTHROID, LEVOXYL) 100 mcg, Every 24 hours lisinopril 10 MG tablet Daily Lyrica 100 mg, Oral, 3 times daily metoprolol tartrate (LOPRESSOR) 50 mg, Every 12 hours montelukast (SINGULAIR) 10 mg, Daily pantoprazole (PROTONIX) 40 mg, Every 24 hours pregabalin (LYRICA) 100 mg, Oral, 3 times daily tiotropium (Spiriva Respimat) 1.25 MCG/ACT inhaler 2 puffs, Every 24 hours traMADol (ULTRAM) 50 mg, Every 6 hours PRN zileuton CR (ZYFLO CR) 1,200 mg, Every 12 hours ALLERGIES: Allergies Allergen Reactions Sulfamethoxazole Anaphylaxis and Swelling Sulfamethoxazole-Trimethoprim Anaphylaxis Sulfanilamide Anaphylaxis Trimethoprim Anaphylaxis Cefprozil Hives Cephalexin Hives Cephalosporins Hives Ciprofloxacin Other and Hives Moxifloxacin Hives and Unknown Oxycodone-Acetaminophen Other and GI intolerance Aspirin Rash Wound Dressing Adhesive Rash Past Medical History: Diagnosis Date Allergies Anemia Arthritis Asthma ([facility]) Asthma ([facility]) Diabetes mellitus ([facility]) Dietary counseling and surveillance DJD (degenerative joint disease) DM (diabetes mellitus) ([facility]) Encounter for fitting or adjustment of insulin pump H/O arthroscopic knee surgery 1987 Herniated cervical disc History of cardiac cath History of migraine headaches intermediate frame tender (current) use of insulin ([facility]) Mixed hyperlipidemia Morbid obesity with BMI of 50.0-59.9, adult ([facility]) Obesity Onychomycosis Osteoarthritis Presence of insulin pump Right upper quadrant pain Supraventricular tachycardia (HCC) Supraventricular tachycardia ([facility]) Thyroid disease Tinea pedis Type 2 diabetes mellitus with hyperglycemia ([facility]) Vitamin D deficiency Past Surgical History: Procedure Laterality Date BACK SURGERY 2011 CARPAL TUNNEL RELEASE 2000 CHOLECYSTECTOMY 2000 EYE EXAM 2012 KNEE SURGERY 1999 knee arthroscopy ROTATOR CUFF REPAIR 2009 TONSILLECTOMY 1972 REVIEW OF SYMPTOMS: 14 POINT OF SYSTEM REVIEWED AND NEGATIVE OBJECTIVE: Constitutional: Afebrile @ home; no weakness or night sweats SKIN: No change in skin color; no itching, rash or lesions; no hair loss; HEENT: No HAs or injury; no dizziness; No difficulty with vision; no eye pain, discharge or lesions; no hearing loss or difficulty; no nasal discharge, NECK: No pain, limitation of motion, lumps or swollen glands RESP: No cough, wheezing or difficulty breathing. No CP with breathing; CARDIO: No CP , SOB or fatigue, No edema, palpitations or dyspnea with exertion GI: No N/V/D or abd. pain; good appetite with no recent change. No heart burn, liver or gallbladderdisease; no rectal bleeding or pain : No urinary pain , frequency or odor. MUSCULOSKELETAL: No muscle pain or cramps; no extremity weakness.No joint pain, stiffness, swellingor limitation of movement NEUROLOGY: No H/O seizures, stroke or fainting. No weakness, tremors. Hematology: No bleeding problems or excessive bruising ENDOCRINE: No increase in hunger, thirst or urination; admits compliance to medical management plan Feet: numbness tingling yes , ulcers or skin break yes Lab Results Component Value Date GLU 187 03/29/2025 GLU 194 12/28/2024 GLU 318 (H) 10/11/2024 08/12/2024 1:53 PM 09/28/2024 1:59 PM 11/25/2024 2:05 PM 12/06/2024 10:33 AM 12/28/2024 2:18 PM 02/10/2025 2:02 PM 03/29/2025 2:15 PM Vitals BMI 48.83 kg/m2 51.76 kg/m2 51.76 kg/m2 50.48 kg/m2 48.29 kg/m2 48.29 kg/m2 49.38 kg/m2 BSA (m2) 2.3 m2 2.37 m2 2.37 m2 2.34 m2 2.29 m2 2.29 m2 2.31 m2 Systolic 128 124 Diastolic 62 78 Heart Rate 99 76 116 SpO2 97 % 99 % 95 % Resp 16 18 18 16 16 20 Height (in) 5' 2 5' 2 5' 2 5' 2 5' 2 5' 2 5' 2 Weight (lb) 267 283 283 276 264 264 270 Visit Report Report Report Report Report Report Report Report ASSESSMENT AND PLAN: Assessment/Plan Diagnoses and all orders for this visit: Type 2 diabetes mellitus without complication, with long-term current use of insulin (HCC) - POCT glucose manually resulted - POCT glycosylated hemoglobin (Hb A1C) docked device - insulin regular (HumuLIN R) 500 UNIT/ML CONCENTRATED injection; Inject 250 Units under the skin Daily - Dulaglutide 4.5 MG/0.5ML solution auto-injector; Inject 1 Dose under the skin 1 (one) time per week We will continue with the same insulin pump settings, Trulicity 4.5 mg once weekly. Acquired hypothyroidism Mixed hyperlipidemia Encounter for dietary consultation Insulin long-term use (HCC) Encounter for fitting or adjustment of insulin pump Insulin pump in place Class 3 severe obesity due to excess calories with serious comorbidity and body mass index (BMI) of45.0 to 49.9 in adult ([facility]) Diet and exercise reviewed with the patient Follow up in about 3 months (around 06/29/2025). documented in this encounterLee's Summit HospitalMuhfdixfeo21-19-7382 Radiology Diagnostic study [place] [address] CT Scan Report Signed Patient: Mary Jane Suarez MR#: [id number] : 1970 Acct:[id number] Age/Sex: 54 / F ADM Date: 5 Loc: ER Room: Type: [facility] ER Attending Dr: Copies to: Jorge Early PA-C~ Ordering Provider: Jorge Early PA-C Date of Service: 03/09/25 CT/CT abdomen pelvis wo con: Left lower abdominal wound CT ABDOMEN AND PELVIS WITHOUT INTRAVENOUS CONTRAST: CLINICAL HISTORY: Left lower quadrant abdominal wound, left lower quadrant pain, nausea, vomiting COMPARISON: 08/11/2024 TECHNIQUE: Spiral images were obtained through the abdomen and pelvis without intravenous contrast.This CT exam was performed using one or more following dose reduction techniques: Automated exposure control, adjustment of the mA and/or kV according to patient size, or use of iterative reconstruction technique. FINDINGS: Lung Bases: [Mild left basilar atelectasis or scarring. Minimal tree-in-bud nodularity both lung bases perhaps due to small airways disease versus aspiration.] Organs:Fatty liver. Cholecystectomy. Splenomegaly. Pancreas, adrenals unremarkable.[ GI: Small hiatal hernia with esophageal mural thickening at level of the distal GE junction[. Ifwd-ox-pwwdcqdh gaseous distention with air fluid level. Givw-eh-ixqozhqy colonic diverticulosis. Fehm-ge-dohpfusa stool burden. No bowel obstruction. No surrounding inflammatory changes. Pelvis:[Bladder wall thickening could relate to under distention. Hysterectomy. No adnexal mass.] Peritoneum/Retroperitoneum:Mild to moderate plaque on the nonaneurysmal aorta. No free air or free fluid. No definite adenopathy.[ Abd wall/Bones:Multilevel degenerative changes. No suspicious osseous lesion. Small fat-containing umbilical hernia. Subcutaneous emphysema right lower quadrant abdominal wall could be related to subcutaneous injection sites. Scattered foci of nonspecific skin thickening left lower quadrant there are quadrant noted unclear if this corresponds to the reported abdominal wound. No definite loculatedcollections within the anterior abdominal wall soft tissues.[ CT/CT abdomen pelvis wo con IMPRESSION: Nonspecific skin thickening anterior abdominal wall. Unclear if this corresponds to the site of clinical exam findings. No definite evidence loculated collection identified to suggest abscess. Otherwise negative acute inflammatory process or bowel obstruction identified. Hepatosplenomegaly Impression dictated by: Ciro Egan M.D. 03/09/2025 4:10 PM Dictation Location: [place] [address] Transcribed By: [facility] 03/09/25 1610 Dictated By: Ciro Egan MD 03/09/25 1602 Signed By: 03/09/25 1610 [facility] Work Phone: 1(937) 160-678309-22-2025 Evaluation note* Diagnosis Onset Date Resolution Status Admit Date Bilateral carpal tunnel syndrome acuteSept2024 3:56pmLumbar back painacuteSept2024 3:56pm Migraine without aura and without status migrainosus, not intractableacute February 21, 2025 3:56pmPLMD (periodic limb movement disorder)acuteSept2024 3:56pmTremoracuteSeptember 2024 3:56pmCutaneous mycosisacute February 22, 2025 10:42amOpen abdominal wall woundacuteSeptember 2024 10:42amOxygen dependentacuteSeptember 2024 10:42amType 2 diabetes mellitus with diabetic chronic kidney diseaseacuteSeptember 2024 10:42amAbdominal wall cellulitisacuteOctober 2024 8:39pmAcute hyperglycemiaacuteOct2024 8:39pmAKI (acute kidney injury)acuteOctober 2024 8:39pmRefractory nausea and vomitingacuteOct2024 8:39pmSkin candidiasisacuteMarch 09, 2025 8:39pm [facility] Work Phone: 1(241) 190-433609-22-2025 Evaluation note* Diagnosis Onset Date Resolution Status Admit Date Bilateral carpal tunnel syndrome acuteSeptember 2024 3:56pmLumbar back painacuteSeptember 2024 3:56pm Migraine without aura and without status migrainosus, not intractableacute February 21, 2025 3:56pmPLMD (periodic limb movement disorder)acuteSeptember 2024 3:56pmTremoracuteSeptember 2024 3:56pmCutaneous mycosisacute February 22, 2025 10:42amOpen abdominal wall woundacuteSeptember 2024 10:42amOxygen dependentacuteSeptember 2024 10:42amType 2 diabetes mellitus with diabetic chronic kidney diseaseacuteSeptember 2024 10:42amAbdominal wall cellulitisacuteOctober 2024 8:39pmAcute hyperglycemiaacuteOct2024 8:39pmAcute kidney injury superimposed on chronic kidney diseaseacute March 09, 2025 8:39pmAKI (acute kidney injury)acuteOctober 2024 8:39pm Refractory nausea and vomitingacuteOct2024 8:39pmSkin candidiasisacute March 09, 2025 8:39pm [facility] Work Phone: 1(265) 605-878009-11-2025 History of Present illness Narrative* Benito Romero DPM - 02/10/2025 2:00 PM EDT Patient: Mary Jane Foy [facility] : 1970 PCP: Kamran Chatterjee MD SUBJECTIVE This is a 54 y.o. female that presents today with a CC of elongated, thick nails. Pt states nails have been elongated and thick for many years and cause pain with ambulation in shoegear. Pt has tried previous treatment with minimal relief. Pt presents today for nail care and treatment. Patient is DM2 with peripheral neuropathy Allergies: Allergies Allergen Reactions Penicillins Unknown and Anaphylaxis Sulfamethoxazole Anaphylaxis and Swelling Sulfamethoxazole-Trimethoprim Anaphylaxis Sulfanilamide Anaphylaxis Trimethoprim Anaphylaxis Cefprozil Hives Cephalexin Hives Cephalosporins Hives Ciprofloxacin Other and Hives Moxifloxacin Hives and Unknown Oxycodone-Acetaminophen Other and GI intolerance Aspirin Rash Wound Dressing Adhesive Rash Past Medical History: Past Medical History: Diagnosis Date Allergies Anemia Arthritis Asthma (HCC) Asthma ([facility]) Diabetes mellitus ([facility]) Dietary counseling and surveillance DJD (degenerative joint disease) DM (diabetes mellitus) ([facility]) Encounter for fitting or adjustment of insulin pump H/O arthroscopic knee surgery 1987 Herniated cervical disc History of cardiac cath History of migraine headaches nursing home (current) use of insulin ([facility]) Mixed hyperlipidemia Morbid obesity with BMI of 50.0-59.9, adult ([facility]) Obesity Onychomycosis Osteoarthritis Presence of insulin pump Right upper quadrant pain Supraventricular tachycardia (HCC) Supraventricular tachycardia ([facility]) Thyroid disease Tinea pedis Type 2 diabetes mellitus with hyperglycemia ([facility]) Vitamin D deficiency Medications: Current Outpatient Medications: albuterol HFA (Ventolin HFA) 90 mcg/act inhaler, Inhale 2 puffs in the morning and 2 puffs in the evening and 2 puffs before bedtime., Disp: , Rfl: allopurinol (Zyloprim) 300 MG tablet, Take 300 mg by mouth 1 (one) time each day at the same time, Disp: , Rfl: ascorbic acid (Vitamin C) 250 MG chewable tablet, Chew 250 mg Daily, Disp: , Rfl: ascorbic acid (Vitamin C) 250 MG tablet, Take 250 mg by mouth 1 (one) time each day at the same time, Disp: , Rfl: biotin 10 MG capsule, Take 10 mg by mouth Daily, Disp: , Rfl: budesonide-formoterol (Symbicort) 160-4.5 MCG/ACT inhaler, Inhale 2 puffs every 12 (twelve) hours, Disp: , Rfl: calcium carbonate (Os-Vani) 1250 (500 Ca) MG tablet, Take 1,250 mg by mouth every 12 (twelve) hours,Disp: , Rfl: Calcium Polycarbophil (fiber) 625 MG tablet, Take 2 tablets by mouth every 6 (six) hours, Disp: , Rfl: Lake DMT 30-30 MG tablet, Take 30 mg by mouth Daily, Disp: , Rfl: cholecalciferol (Vitamin D-3) 50 MCG (1999 UT) capsule, Take 1 capsule by mouth 1 (one) time each day at the same time, Disp: , Rfl: cholecalciferol (Vitamin D-3) 50 MCG (1999 UT) capsule, Take 2,000 Units by mouth in the morning., Disp: , Rfl: cinnamon 500 MG capsule, Take 2,000 mg by mouth in the morning., Disp: , Rfl: clindamycin (Cleocin) 300 MG capsule, Take 300 mg by mouth in the morning and 300 mg in the eveningand 300 mg before bedtime., Disp: , Rfl: clopidogrel (Plavix) 75 MG tablet, Take 75 mg by mouth Daily, Disp: , Rfl: Continuous Glucose Sensor (FreeStyle Lisbeth 2 Sensor) [facility], CHANGE EVERY 14 DAYS., Disp: 6 each, Rfl: 1 cyclobenzaprine (Flexeril) 10 MG tablet, Take 10 mg by mouth 1 (one) time each day at the same time, Disp: , Rfl: diclofenac (Voltaren) 75 MG EC tablet, Take 75 mg by mouth in the morning and 75 mg before bedtime., Disp: , Rfl: Docusate Sodium (DSS) 250 MG capsule, Take 1 capsule by mouth Daily as needed, Disp: , Rfl: doxycycline (Monodox) 100 MG capsule, Take 100 mg by mouth in the morning and 100 mg before bedtime., Disp: , Rfl: Dulaglutide 4.5 MG/0.5ML solution auto-injector, Inject 1 Dose under the skin 1 (one) time per week, Disp: 2 mL, Rfl: 5 Dupilumab (Dupixent) 300 MG/2ML solution auto-injector, , Disp: , Rfl: fenofibrate (Triglide) 160 MG tablet, Take 160 mg by mouth 1 (one) time each day at the same time, Disp: , Rfl: ferrous sulfate 325 (65 Fe) MG tablet, Take 325 mg by mouth in the morning. Take with meals., Disp:, Rfl: fexofenadine (Oral) 180 MG tablet, Take 180 mg by mouth in the morning., Disp: , Rfl: furosemide (Lasix) 20 MG tablet, Take 20 mg by mouth in the morning and 20 mg before bedtime., Disp: , Rfl: furosemide (Lasix) 40 MG tablet, Take 40 mg by mouth Daily, Disp: , Rfl: HumuLIN R 500 UNIT/ML CONCENTRATED injection, Inject 500 mL under the skin in the morning., Disp: ,Rfl: indomethacin (Indocin) 50 MG capsule, Take 50 mg by mouth in the morning and 50 mg in the evening. Take with meals., Disp: , Rfl: Insulin Disposable Pump (Omnipod DASH Pods, Gen 4,) mis, CHANGE POD EVERY 72 HOURS., Disp: 10 each, Rfl: 12 insulin regular (HumuLIN R U-500 KWIKPEN) 500 UNIT/ML CONCENTRATED injection, Inject 500 mL under the skin at bedtime, Disp: , Rfl: insulin regular (HumuLIN R) 500 UNIT/ML CONCENTRATED injection, Inject 250 Units under the skin Daily, Disp: 45 mL, Rfl: 1 Inulin 2 g chewable tablet, Chew 2 g, Disp: , Rfl: Lactobacillus (Acidophilus) capsule, Take 1 capsule by mouth in the morning and 1 capsule at noon and 1 capsule in the evening. Take with meals., Disp: , Rfl: levoFLOXacin (Levaquin) 250 MG tablet, Take 250 mg by mouth Daily, Disp: , Rfl: levothyroxine (Synthroid, Levoxyl) 175 MCG tablet, Take 100 mcg by mouth 1 (one) time each day at the same time, Disp: , Rfl: lisinopril 10 MG tablet, Take by mouth Daily, Disp: , Rfl: Lyrica 100 MG capsule, Take 1 capsule (100 mg) by mouth in the morning and 1 capsule (100 mg) in the evening and 1 capsule (100 mg) before bedtime., Disp: 270 capsule, Rfl: 0 metoprolol tartrate (Lopressor) 50 MG tablet, Take 50 mg by mouth every 12 (twelve) hours, Disp: , Rfl: montelukast (Singulair) 10 MG tablet, Take 10 mg by mouth Daily, Disp: , Rfl: pantoprazole (ProtoNix) 40 MG EC tablet, Take 40 mg by mouth 1 (one) time each day at the same time, Disp: , Rfl: pregabalin (Lyrica) 100 MG capsule, Take 1 capsule (100 mg) by mouth in the morning and 1 capsule (100 mg) in the evening and 1 capsule (100 mg) before bedtime., Disp: 270 capsule, Rfl: 0 tiotropium (Spiriva Respimat) 1.25 MCG/ACT inhaler, Inhale 2 puffs 1 (one) time each day at the same time, Disp: , Rfl: traMADol (Ultram) 50 MG tablet, Take 50 mg by mouth every 6 (six) hours if needed, Disp: , Rfl: zileuton CR (Zyflo CR) 600 MG 12 hr tablet, Take 1,200 mg by mouth every 12 (twelve) hours, Disp: ,Rfl: Social History: Social History Socioeconomic History Marital status: Spouse name: Not on file Number of children: Not on file Years of education: Not on file Highest education level: Not on file Occupational History Not on file Tobacco Use Smoking status: Never Passive exposure: Never Smokeless tobacco: Never Substance and Sexual Activity Alcohol use: Never Drug use: Never Sexual activity: Not on file Other Topics Concern Not on file Social History Narrative Not on file Social Drivers of Health Financial Resource Strain: Low Risk (10/06/2024) Received from [facility] Overall Financial Resource Strain (CARDIA) Difficulty of Paying Living Expenses: Not very hard Food Insecurity: No Food Insecurity (10/06/2024) Received from [facility] Hunger Vital Sign Within the past 12 months, you worried that your food would run out before you got the money to buymore.: Never true Ran Out of Food in the Last Year: Not on file Transportation Needs: No Transportation Needs (10/06/2024) Received from [facility] Transportation In the past 12 months, has lack of transportation kept you from medical appointments or from getting medications?: No Lack of Transportation (Non-Medical): Not on file Physical Activity: Not on file Stress: Not on file Social Connections: Not on file Intimate Partner Violence: Unknown (10/06/2024) Received from [facility] Humiliation, Afraid, Rape, and Kick questionnaire Fear of Current or Ex-Partner: No Emotionally Abused: Not on file Physically Abused: Not on file Sexually Abused: Not on file Housing Stability: High Risk (10/06/2024) Received from [facility] Housing Stability Vital Sign Unable to Pay for Housing in the Last Year: Not on file Number of Times Moved in the Last Year: Not on file At any time in the past 12 months, were you homeless or living in a half-way (including now)?: Yes ROS: General: denies fever, chills, fatigue, malaise OBJECTIVE LE EXAM: DERM: Elongated thick yellow crumbly nails digits 1 through 10. Negative hair growth with thin shiny atrophic skin bilaterally VASC: Negative DP and negative PT pedal pulses NEURO: 5.07 [place] Ayla monofilament test diminished to digits and forefoot bilaterally 125Hz tuning fork diminished to 1st MPJ bilaterally ORTHO: Positive pain on palpation to toenails of the left 1,2,3,4,5 toes and right 1,2,3,4,5 toes ASSESSMENT 1. Diabetes mellitus due to underlying condition with diabetic polyneuropathy, with long-term current use of insulin (HCC) 2. Pain due to onychomycosis of toenails of both feet PLAN Discussed proper foot care with patient today. Debride nails in length and thickness digits 1 through 10 Patient educated today on proper diabetic foot care including monitoring feet daily for any signs of infection openings in the skin or irregularities to both feet. Patient had a diabetic neurologicalexam today to both their feet and discussed proper shoe gear. Benito Romero DPM documented in this encounterLee's Summit [id number] History of Present illness Narrative* Jeanna Olmedo MD - 02/02/2025 9:00 AM EDT Mary Jane Suarez returns to the office today for cautious graded oral challenge to penicillin. She has had negative recent skin testing and ImmunoCAP testing for penicillin. She has held her metoprolol in preparation for her oral challenge. She reports feeling well upon arriving in the office today and denies having any respiratory or cutaneous symptoms. At 9:13 a.m. in the morning patient received approximately 1 mg of penicillin and her dose was tripled every 25 minutes until she had ingested a 300 mg dose. She was then observed in the office for an extra hour and had no signs or symptoms of allergic reaction. I explained that she is no longer allergic to penicillin and that she may receive penicillins as clinically indicated and follow-up was arranged on an as needed basis. Time of challenge 3 hours and 20 minutes documented in this encounterLee's Summit [id number] History of Present illness Narrative* Margarito Moon MD - 12/28/2024 2:10 PM EDT Authsudheer Suarez is a 54 y.o. female No ref. provider found presents with chief complaint of Diabetes and Follow-up HPI: IM : 11/2024 follow up visit on 12/28/2024 , using u-500 inside the pump, ( 12 am 0.65, 4 am 0.75, 8 am 1, 12 pm 1.05, 4 pm 1.25. ICR 1:2, ISS 1:20), on Trulicity 4.5 mg once weekly. IM : 08/2024 follow up visit on 09/28/2024 , using u-500 inside the pump, ( 12 am 0.65, 4 am 0.75, 8 am 1, 12 pm 1.05, 4 pm 1.25. ICR 1:2, ISS 1:20), on Trulicity 4.5 mg once weekly. CGM 8-22-70 AVG 241, A1c 9.7 on 07/2024 with her PCP. IM : 02/2024 follow up visit on 02/09/2024, using u-500 inside the pump off now and using 30 units tid per syringes , ( 12 am 0.65, 4 am 0.75, 8 am 1, 12 pm 1.05, 4 pm 1.25. ICR 1:2, ISS 1:20), on Trulicity 4.5 mg once weekly. CGM 5-33-61 AVG 233. IM : 10/2023 follow up visit on 10/13/2023 for urgent visit for high bg 473, using u-500 inside the pump off now and using 30 units tid per syringes , ( 12 am 0.65, 4 am 0.75, 8 am 1, 12 pm 1.05, 4 pm 1.25. ICR 1:2, ISS 1:20), on Trulicity 4.5 mg once weekly. IM : 09/2023 follow up visit on 09/01/2023 A1c 13.4, bg 542, using u-500 inside the pump, 12 am 0.65, 4 am 0.75, 8am 1, 12 pm 1.05, 4 pm 1.25. ICR 1:2, ISS 1:20, on Trulicity 4.5 mg once weekly. off insulin for short tram, plan for EGD soon IM : 04/2023 follow up visit on 04/14/2023 A1c 10.9 , bg 389, using u-500 inside the pump, 12 am 0.65, 4 am 0.75, 8 am 1, 12 pm 1.05, 4 pm 1.25. ICR 1:2, ISS 1:20, on Trulicity 4.5 mg once weekly. pump AVG 282, 122-hi. IM : 12/2022 follow up visit on 01/13/2023 A1c 9.4 , bg 140, using u-500 inside the pump, 12 am 0.65, 4 am 0.75, 8 am 1, 12 pm 1.05, 4 pm 1.25. ICR 1:2, ISS 1:20, on Trulicity 4.5 mg once weekly. pump AVG 262, 143-hi. CGM 06-26-73 avg 248. IM : 08/2022 follow up visit on 09/23/2022 A1c 8.4 , bg 232, using u-500 inside the pump, 12 am 0.65, 4 am 0.75, 8 am 1, 12 pm 1.05, 4 pm 1.25. ICR 1:2, ISS 1:40, on Trulicity 4.5 mg once weekly. pump AVG 242, TDD45, 49/51% IM 06/2022 follow up visit on 06/17/2022 A1c 10.4 , bg 270, using u-500 inside the pump, 12 am 0.1, 4 am 0.75, 8 am 1, 12 pm 1.05, 4 pm 1.25. ICR 1:2, ISS 1:50, on trulcity 4.5 mg once weekly. CHM 1-33-56 AVG 228 IM 10/2021 follow up visit on 11/20/2021 A1c 10 , bg 154, using u-500 inside the pump, 12 am 0.7, 4 am 0.75, 8 am 1, 12 pm 1.30, 4 pm 1.25. ICR 1:7, on trulcity 4.5 mg once weekly. CGM 0-20-80 AVG 289 IM 05/2021 follow up visit on 05/16/2021 A1c 8.6, bg 126, using u-500 inside the pump, 12 am 0.7, 4 am 0.75, 8am 1, 12 pm 1.30, 4 pm 1.25. ICR 1:7, ISS 12 AM 30, 8 AM 40, target 110, . pump avg 235, 47/53%, TDD 38 units, on trulcity 3 mg once weekly IM 01/2021 follow up visit on 02/13/2021 A1c 7.5, bg 126, using u-500 insied the pump, 12 am 0.7, 4 am 0.65, 8am 1, 12 pm 1.25, 4 pm 1.25. ICR 1:6, ISS 12 AM 30, 8 AM 40, target 110, CGM -44 AVG 176. pumpavg 222, 32/68%, TDD 59.5 units( equal to almost 300), on trulcity 1.5 mg once weekly HPI: 10/2020 New patient to this office. Last time saw me in the old office. CGM interpretation: 3% low range, 42% in good range, 55% in high range. Insulin pump: 12 AM, 1; 4 AM 0.8; 8 AM 0.65; 12 PM 1.25; 4 PM 1.5. ICR 1:6 and ISS 12 AM 30 and 8 AM 20 and insulin pump downloaded, average 241, 29% basal, 71% bolus, total daily dose 84. She is using Humalog 200. She is morbidly obese. Body mass index 40. She wants to go with U-500 insulin pump. She left the nurse practitioner she used before since she was not able to put her on U-500 and she just upgraded her Trulicity to 3 mg once weekly. SUBJECTIVE: MEDICATIONS: Current Outpatient Medications Medication Instructions albuterol HFA (Ventolin HFA) 90 mcg/act inhaler 2 puffs, 3 times daily allopurinol (ZYLOPRIM) 300 mg, Every 24 hours ascorbic acid (VITAMIN C) 250 mg, Every 24 hours ascorbic acid (VITAMIN C) 250 mg, Daily biotin 10 mg, Daily budesonide-formoterol (Symbicort) 160-4.5 MCG/ACT inhaler 2 puffs, Every 12 hours calcium carbonate (OS-VANI) 1,250 mg, Every 12 hours Calcium Polycarbophil (fiber) 625 MG tablet 2 tablets, Every 6 hours Lake DMT 30-30 MG tablet 30 mg, Daily cholecalciferol (Vitamin D-3) 50 MCG (2000 UT) capsule 1 capsule, Every 24 hours cholecalciferol (VITAMIN D-3) 2,000 Units, Daily RT cinnamon 2,000 mg, Daily RT clindamycin (CLEOCIN) 300 mg, 3 times daily clopidogrel (PLAVIX) 75 mg, Daily Continuous Glucose Sensor (FreeStyle Lisbeth 2 Sensor) misc CHANGE EVERY 14 DAYS. cyclobenzaprine (FLEXERIL) 10 mg, Every 24 hours diclofenac (VOLTAREN) 75 mg, 2 times daily Docusate Sodium (DSS) 250 MG capsule 1 capsule, Daily PRN doxycycline (MONODOX) 100 mg, 2 times daily Dulaglutide 4.5 MG/0.5ML solution auto-injector 1 Dose, Subcutaneous, Weekly Dupilumab (Dupixent) 300 MG/2ML solution auto-injector fenofibrate (TRIGLIDE) 160 mg, Every 24 hours ferrous sulfate 325 mg, Daily with breakfast fexofenadine (ORAL) 180 mg, Daily RT furosemide (LASIX) 40 mg, Daily furosemide (LASIX) 20 mg, 2 times daily HumuLIN R 500 UNIT/ML CONCENTRATED injection 500 mL, Every morning HumuLIN R 250 Units, Subcutaneous, Daily indomethacin (INDOCIN) 50 mg, 2 times daily with meals Insulin Disposable Pump (Omnipod DASH Pods, Gen 4,) misc CHANGE POD EVERY 72 HOURS. insulin regular (HumuLIN R U-500 KWIKPEN) 500 UNIT/ML CONCENTRATED injection 500 mL, Nightly Inulin 2 g Lactobacillus (Acidophilus) capsule 1 capsule, 3 times daily with meals levoFLOXacin (LEVAQUIN) 250 mg, Daily levothyroxine (SYNTHROID, LEVOXYL) 100 mcg, Every 24 hours lisinopril 10 MG tablet Daily Lyrica 100 mg, Oral, 3 times daily metoprolol tartrate (LOPRESSOR) 50 mg, Every 12 hours montelukast (SINGULAIR) 10 mg, Daily pantoprazole (PROTONIX) 40 mg, Every 24 hours pregabalin (LYRICA) 100 mg, Oral, 3 times daily tiotropium (Spiriva Respimat) 1.25 MCG/ACT inhaler 2 puffs, Every 24 hours traMADol (ULTRAM) 50 mg, Every 6 hours PRN zileuton CR (ZYFLO CR) 1,200 mg, Every 12 hours ALLERGIES: Allergies Allergen Reactions Penicillins Unknown and Anaphylaxis Sulfamethoxazole Anaphylaxis and Swelling Sulfamethoxazole-Trimethoprim Anaphylaxis Sulfanilamide Anaphylaxis Trimethoprim Anaphylaxis Cefprozil Hives Cephalexin Hives Cephalosporins Hives Ciprofloxacin Other and Hives Moxifloxacin Hives and Unknown Oxycodone-Acetaminophen Other and GI intolerance Aspirin Rash Wound Dressing Adhesive Rash Past Medical History: Diagnosis Date Allergies Anemia Arthritis Asthma ([facility]) Asthma ([facility]) Diabetes mellitus ([facility]) Dietary counseling and surveillance DJD (degenerative joint disease) DM (diabetes mellitus) ([facility]) Encounter for fitting or adjustment of insulin pump H/O arthroscopic knee surgery 1987 Herniated cervical disc History of cardiac cath History of migraine headaches intermediate frame tender (current) use of insulin ([facility]) Mixed hyperlipidemia Morbid obesity with BMI of 50.0-59.9, adult ([facility]) Obesity Onychomycosis Osteoarthritis Presence of insulin pump Right upper quadrant pain Supraventricular tachycardia ([facility]) Supraventricular tachycardia ([facility]) Thyroid disease Tinea pedis Type 2 diabetes mellitus with hyperglycemia ([facility]) Vitamin D deficiency Past Surgical History: Procedure Laterality Date BACK SURGERY 2011 CARPAL TUNNEL RELEASE 2000 CHOLECYSTECTOMY 2000 EYE EXAM 2012 KNEE SURGERY 1999 knee arthroscopy ROTATOR CUFF REPAIR 2009 TONSILLECTOMY 1972 REVIEW OF SYMPTOMS: 14 POINT OF SYSTEM REVIEWED AND NEGATIVE OBJECTIVE: Constitutional: Afebrile @ home; no weakness or night sweats SKIN: No change in skin color; no itching, rash or lesions; no hair loss; HEENT: No HAs or injury; no dizziness; No difficulty with vision; no eye pain, discharge or lesions; no hearing loss or difficulty; no nasal discharge, NECK: No pain, limitation of motion, lumps or swollen glands RESP: No cough, wheezing or difficulty breathing. No CP with breathing; CARDIO: No CP , SOB or fatigue, No edema, palpitations or dyspnea with exertion GI: No N/V/D or abd. pain; good appetite with no recent change. No heart burn, liver or gallbladderdisease; no rectal bleeding or pain : No urinary pain , frequency or odor. MUSCULOSKELETAL: No muscle pain or cramps; no extremity weakness.No joint pain, stiffness, swellingor limitation of movement NEUROLOGY: No H/O seizures, stroke or fainting. No weakness, tremors. Hematology: No bleeding problems or excessive bruising ENDOCRINE: No increase in hunger, thirst or urination; admits compliance to medical management plan Feet: numbness tingling yes , ulcers or skin break yes Lab Results Component Value Date GLU 194 12/28/2024 GLU 318 (H) 10/11/2024 GLU 232 (H) 10/11/2024 Visit Vitals Pulse 76 Resp 16 Ht 5' 2 Wt 264 lb SpO2 99% BMI 48.29 kg/m Smoking Status Never BSA 2.29 m ASSESSMENT AND PLAN: Assessment/Plan Diagnoses and all orders for this visit: Type 2 diabetes mellitus without complication, with long-term current use of insulin ([facility]) - POCT glucose manually resulted - POCT glycosylated hemoglobin (Hb A1C) docked device We will continue with the same insulin pump settings, Trulicity 4.5 mg once weekly. Acquired hypothyroidism Mixed hyperlipidemia Encounter for dietary consultation Insulin long-term use ([facility]) Encounter for fitting or adjustment of insulin pump Insulin pump in place Class 3 severe obesity due to excess calories with serious comorbidity and body mass index (BMI) of45.0 to 49.9 in adult ([facility]) Diet and exercise reviewed with the patient No follow-ups on file. documented in this encounterLee's Summit [id number] [facility] Chief Complaint: Patient here for 6 mo follow up mild CAD, atypical chest pain, and hypertension. She was admitted to [facility] in September 2024 for NSTEMI. Patient admitted again last month from [facility] for CHF and pneumonia. Seen by Dr. Franco as inpatient consult at [facility]. She was started on amlodipine and Entresto, and lisinopril was stopped. HPI: Mary Jane Suarez is a 54 y.o. female woman with [...] pharmacy did not prescribe the PCSK9 inhibitor UPDATE 12/09/2024 Was admitted in September to [facility] for right lower lobe pneumonia, DKA, and found to have a troponin leak Hospital Medicine Discharge Summary Final Discharge Diagnosis: Right lower lobe pneumonia Uncontrolled hyperglycemia with underlying type 2 diabetes mellitus Chronic kidney disease stage II-III Hyperlipidemia Hypothyroidism Hypertension Class III obesity Mildly elevated troponin likely supply/demand mismatch Anemia likely chronic Admission Diagnosis: NSTEMI (non-ST elevated myocardial infarction) ([facility]/H[facility]) [I21.4] Hospital course: Mary Jane Suarez is a 54 y.o. female with medical [...] to follow-up with PCP in 1 week. UPDATE 12/09/2024 Feels improved compared to when she was in the hospital. Still has a mild cough. No fevers, no chills. No anginal chest pain. During hospitalization, an echocardiogram was obtained which showed a preserved ejection fraction and a D-shaped septum consistent with right ventricular pressure and/or volume overload. Cardiology ROS: Review of Systems Cardiovascular: Positive for chest pain ( from my asthma ), dyspnea on exertion and palpitations ( sometimes ). Respiratory: Positive for shortness of breath. Musculoskeletal: Positive for arthritis, back pain, joint pain, muscle weakness and myalgias. Neurological: Positive for headaches, loss of balance, vertigo and weakness. All other systems reviewed and are negative. Past Medical History She has a past medical history of Abnormal ECG, Asthma, Diabetes mellitus ([facility]/HCC), and Hyperlipidemia. Surgical History She has a past surgical history that includes Cardiac catheterization. Social History She reports that she has never smoked. She has ne (more content not included)... [facility]07-07-2025 History of Present illness Narrative* Jeanna Olmedo MD - 12/06/2024 10:20 AM EDT [facility] Jane [facility] is a very pleasant 54 y.o. year old female who comes to the office today with the chief complaint of concern about drug especially antibiotic allergies. Referred by Ann Fournier Patient has a history of allergy to penicillin Bactrim Avelox aspirin cephalosporins ciprofloxacin Percocet Cephadyn? Adhesive statins azithromycin sulfa antibiotics eggs soy and doxycycline. She hashad a recent episode of pneumonia. She took penicillin when she was a baby. She believes she got hives at that time. She feels she hadsome throat tightness at that time as well. This occurred about 4-6 hours after the first dose. Shewas in the hosp at that time for pneumonia. This was at about 6 months of age. There was no desquamation or mucous membrane lesions at that time. She got hives after taking cephalosporins. This occurred at about age 13 about 10 minutes after thefirst dose. She got red itchy and then bumps on her skin. She had no desquamation or mucous membrane lesions or symptoms of anaphylaxis with this episode. She has avoided cephalosporins since that time. She took ciprofloxacin and got red skin and hives about 30 minutes after the first dose but no other symptoms at that time. This was at about age 23. There was no desquamation or mucous membrane lesions with that reaction and she has avoided this since that time. She took doxycycline and got all red and got hives. This was this past September and was about 30 minutesafter the first dose. She took future doses with Benadryl and continued the course of doxycycline. EXAM The patient appears comfortable in the office today. Lungs are clear to auscultation bilaterally. The oral mucosa is pink and healthy without any lesions or ulcers. The palate elevates in the midline. The nasal mucosa is pink and healthy. There is no epistaxis mucopus or nasal polyposis noted. The nasal septum is approximately in the midline. The skin is clear of any lesions, excoriations, or erythema. Skin testing in the office today performed under direct physician supervision is negative for penicillin, ampicillin and ceftriaxone in the setting of a positive histamine control. IMPRESSION: Adverse effect penicillin- we agreed she would obtain ImmunoCAP testing for penicillin and then follow up for a cautious graded oral challenge to penicillin if this is negative. I explained that her blood needs to be drawn at least 2 weeks before her follow-up assessment. If she passes her penicillin challenge then it may be reasonable to subsequently evaluate her for allergy to ciprofloxacin. documented in this encounterLee's Summit [id number] Evaluation note* Diagnosis Onset Date Resolution Status Admit Date CKD (chronic kidney disease) stage 3, GF R 30-59 ml/min acuteJuly 2024 3:11pmHyperlipidemiaacuteJuly 2024 3:11pmHypertensive chronic kidney disease with stage 1 through stage 4 chronic kiacuteJuly 2024 3:11pmHypoparathyroidismacuteJuly 2024 3:11pmType 2 diabetes mellitus with diabetic chronic kidney diseaseacuteJuly 2024 3:11pmHyperuricemia resolvedJuly 2024 3:11pmCutaneous mycosisacuteSept2024 8:42am Open abdominal wall woundacuteSept2024 8:42amOxygen dependentacute Sirena 2024 8:42amType 2 diabetes mellitus with diabetic chronic kidney diseaseacuteSept2024 8:42am [facility] Work Phone: [phone]) 898-891006-26-2025 History of Present illness Narrative* Benito Romero, AIDAM - 11/25/2024 2:10 PM EDT Patient: Mary Jane D [facility] : 1970 PCP: Kamran Chatterjee MD SUBJECTIVE This is a 54 y.o. female that presents today with a CC of elongated, thick nails. Pt states nails have been elongated and thick for many years and cause pain with ambulation in shoegear. Pt has tried previous treatment with minimal relief. Pt presents today for nail care and treatment. Patient is DM2 with peripheral neuropathy Allergies: Allergies Allergen Reactions Penicillins Unknown and Anaphylaxis Sulfamethoxazole Anaphylaxis and Swelling Sulfamethoxazole-Trimethoprim Anaphylaxis Sulfanilamide Anaphylaxis Trimethoprim Anaphylaxis Cefprozil Hives Cephalexin Hives Cephalosporins Hives Ciprofloxacin Other and Hives Moxifloxacin Hives and Unknown Oxycodone-Acetaminophen Other and GI intolerance Aspirin Rash Wound Dressing Adhesive Rash Past Medical History: Past Medical History: Diagnosis Date Allergies Anemia Arthritis Asthma ([facility]CC) Asthma ([facility]) Diabetes mellitus ([facility]) Dietary counseling and surveillance DJD (degenerative joint disease) DM (diabetes mellitus) ([facility]) Encounter for fitting or adjustment of insulin pump H/O arthroscopic knee surgery 1987 Herniated cervical disc History of cardiac cath History of migraine headaches nursing home (current) use of insulin ([facility]) Mixed hyperlipidemia Morbid obesity with BMI of 50.0-59.9, adult ([facility]) Obesity Onychomycosis Osteoarthritis Presence of insulin pump Right upper quadrant pain Supraventricular tachycardia ([facility]) Supraventricular tachycardia ([facility]) Thyroid disease Tinea pedis Type 2 diabetes mellitus with hyperglycemia ([facility]) Vitamin D deficiency Medications: Current Outpatient Medications: albuterol HFA (Ventolin HFA) 90 mcg/act inhaler, Inhale 2 puffs in the morning and 2 puffs in the evening and 2 puffs before bedtime., Disp: , Rfl: allopurinol (Zyloprim) 300 MG tablet, Take 300 mg by mouth 1 (one) time each day at the same time, Disp: , Rfl: ascorbic acid (Vitamin C) 250 MG chewable tablet, Chew 250 mg Daily, Disp: , Rfl: ascorbic acid (Vitamin C) 250 MG tablet, Take 250 mg by mouth 1 (one) time each day at the same time, Disp: , Rfl: biotin 10 MG capsule, Take 10 mg by mouth Daily, Disp: , Rfl: budesonide-formoterol (Symbicort) 160-4.5 MCG/ACT inhaler, Inhale 2 puffs every 12 (twelve) hours, Disp: , Rfl: calcium carbonate (Os-Vani) 1250 (500 Ca) MG tablet, Take 1,250 mg by mouth every 12 (twelve) hours,Disp: , Rfl: Calcium Polycarbophil (fiber) 625 MG tablet, Take 2 tablets by mouth every 6 (six) hours, Disp: , Rfl: Lake DMT 30-30 MG tablet, Take 30 mg by mouth Daily, Disp: , Rfl: cholecalciferol (Vitamin D-3) 50 MCG (1999) capsule, Take 1 capsule by mouth 1 (one) time each day at the same time, Disp: , Rfl: cholecalciferol (Vitamin D-3) 50 MCG (1999 UT) capsule, Take 2,000 Units by mouth in the morning., Disp: , Rfl: cinnamon 500 MG capsule, Take 2,000 mg by mouth in the morning., Disp: , Rfl: clindamycin (Cleocin) 300 MG capsule, Take 300 mg by mouth in the morning and 300 mg in the eveningand 300 mg before bedtime., Disp: , Rfl: clopidogrel (Plavix) 75 MG tablet, Take 75 mg by mouth Daily, Disp: , Rfl: Continuous Glucose Sensor (FreeStyle Lisbeth 2 Sensor) [facility], CHANGE EVERY 14 DAYS., Disp: 6 each, Rfl: 1 cyclobenzaprine (Flexeril) 10 MG tablet, Take 10 mg by mouth 1 (one) time each day at the same time, Disp: , Rfl: diclofenac (Voltaren) 75 MG EC tablet, Take 75 mg by mouth in the morning and 75 mg before bedtime., Disp: , Rfl: Docusate Sodium (DSS) 250 MG capsule, Take 1 capsule by mouth Daily as needed, Disp: , Rfl: doxycycline (Monodox) 100 MG capsule, Take 100 mg by mouth in the morning and 100 mg before bedtime., Disp: , Rfl: Dulaglutide 4.5 MG/0.5ML solution auto-injector, Inject 1 Dose under the skin 1 (one) time per week, Disp: 2 mL, Rfl: 5 Dupilumab (Dupixent) 300 MG/2ML solution auto-injector, , Disp: , Rfl: fenofibrate (Triglide) 160 MG tablet, Take 160 mg by mouth 1 (one) time each day at the same time, Disp: , Rfl: ferrous sulfate 325 (65 Fe) MG tablet, Take 325 mg by mouth in the morning. Take with meals., Disp:, Rfl: fexofenadine (Oral) 180 MG tablet, Take 180 mg by mouth in the morning., Disp: , Rfl: furosemide (Lasix) 20 MG tablet, Take 20 mg by mouth in the morning and 20 mg before bedtime., Disp: , Rfl: furosemide (Lasix) 40 MG tablet, Take 40 mg by mouth Daily, Disp: , Rfl: HumuLIN R 500 UNIT/ML CONCENTRATED injection, Inject 500 mL under the skin in the morning., Disp: ,Rfl: indomethacin (Indocin) 50 MG capsule, Take 50 mg by mouth in the morning and 50 mg in the evening. Take with meals., Disp: , Rfl: Insulin Disposable Pump (Omnipod DASH Pods, Gen 4,) misc, CHANGE POD EVERY 72 HOURS., Disp: 10 each, Rfl: 12 insulin regular (HumuLIN R U-500 KWIKPEN) 500 UNIT/ML CONCENTRATED injection, Inject 500 mL under the skin at bedtime, Disp: , Rfl: insulin regular (HumuLIN R) 500 UNIT/ML CONCENTRATED injection, Inject 250 Units under the skin Daily, Disp: 45 mL, Rfl: 1 Inulin 2 g chewable tablet, Chew 2 g, Disp: , Rfl: Lactobacillus (Acidophilus) capsule, Take 1 capsule by mouth in the morning and 1 capsule at noon and 1 capsule in the evening. Take with meals., Disp: , Rfl: levoFLOXacin (Levaquin) 250 MG tablet, Take 250 mg by mouth Daily, Disp: , Rfl: levothyroxine (Synthroid, Levoxyl) 175 MCG tablet, Take 100 mcg by mouth 1 (one) time each day at the same time, Disp: , Rfl: lisinopril 10 MG tablet, Take by mouth Daily, Disp: , Rfl: Lyrica 100 MG capsule, Take 1 capsule (100 mg) by mouth in the morning and 1 capsule (100 mg) in the evening and 1 capsule (100 mg) before bedtime., Disp: 270 capsule, Rfl: 0 metoprolol tartrate (Lopressor) 50 MG tablet, Take 50 mg by mouth every 12 (twelve) hours, Disp: , Rfl: montelukast (Singulair) 10 MG tablet, Take 10 mg by mouth Daily, Disp: , Rfl: pantoprazole (ProtoNix) 40 MG EC tablet, Take 40 mg by mouth 1 (one) time each day at the same time, Disp: , Rfl: pregabalin (Lyrica) 100 MG capsule, Take 1 capsule (100 mg) by mouth in the morning and 1 capsule (100 mg) in the evening and 1 capsule (100 mg) before bedtime., Disp: 270 capsule, Rfl: 0 tiotropium (Spiriva Respimat) 1.25 MCG/ACT inhaler, Inhale 2 puffs 1 (one) time each day at the same time, Disp: , Rfl: traMADol (Ultram) 50 MG tablet, Take 50 mg by mouth every 6 (six) hours if needed, Disp: , Rfl: zileuton CR (Zyflo CR) 600 MG 12 hr tablet, Take 1,200 mg by mouth every 12 (twelve) hours, Disp: ,Rfl: Social History: Social History Socioeconomic History Marital status: Spouse name: Not on file Number of children: Not on file Years of education: Not on file Highest education level: Not on file Occupational History Not on file Tobacco Use Smoking status: Never Passive exposure: Never Smokeless tobacco: Never Substance and Sexual Activity Alcohol use: Never Drug use: Never Sexual activity: Not on file Other Topics Concern Not on file Social History Narrative Not on file Social Drivers of Health Financial Resource Strain: Low Risk (10/06/2024) Received from [facility] Overall Financial Resource Strain (CARDIA) Difficulty of Paying Living Expenses: Not very hard Food Insecurity: No Food Insecurity (10/06/2024) Received from [facility] Hunger Vital Sign Within the past 12 months, you worried that your food would run out before you got the money to buymore.: Never true Ran Out of Food in the Last Year: Not on file Transportation Needs: No Transportation Needs (10/06/2024) Received from [facility] Transportation In the past 12 months, has lack of transportation kept you from medical appointments or from getting medications?: No Lack of Transportation (Non-Medical): Not on file Physical Activity: Not on file Stress: Not on file Social Connections: Not on file Intimate Partner Violence: Unknown (10/06/2024) Received from [facility] Humiliation, Afraid, Rape, and Kick questionnaire Fear of Current or Ex-Partner: No Emotionally Abused: Not on file Physically Abused: Not on file Sexually Abused: Not on file Housing Stability: High Risk (10/06/2024) Received from [facility] Housing Stability Vital Sign Unable to Pay for Housing in the Last Year: Not on file Number of Times Moved in the Last Year: Not on file At any time in the past 12 months, were you homeless or living in a half-way (including now)?: Yes ROS: General: denies fever, chills, fatigue, malaise OBJECTIVE LE EXAM: DERM: Elongated thick yellow crumbly nails digits 1 through 10. Negative hair growth with thin shiny atrophic skin bilaterally VASC: Negative DP and negative PT pedal pulses NEURO: 5.07 [place] Ayla monofilament test diminished to digits and forefoot bilaterally 125Hz tuning fork diminished to 1st MPJ bilaterally ORTHO: Positive pain on palpation to toenails of the left 1,2,3,4,5 toes and right 1,2,3,4,5 toes ASSESSMENT 1. Diabetes mellitus due to underlying condition with diabetic polyneuropathy, with long-term current use of insulin (HCC) 2. Pain due to onychomycosis of toenails of both feet PLAN Discussed proper foot care with patient today. Debride nails in length and thickness digits 1 through 10 Patient educated today on proper diabetic foot care including monitoring feet daily for any signs of infection openings in the skin or irregularities to both feet. Patient had a diabetic neurologicalexam today to both their feet and discussed proper shoe gear. Benito Romero DPM documented in this encounterLee's Summit [id number] Evaluation note* Diagnosis Onset Date Resolution Status Admit Date Chronic abdominal wound infection acuteJune 2024 10:36amMultiple drug resistant organism (MDRO) culture positiveacuteJune 2024 10:36amOpen abdominal wall woundacuteJune 2024 10:36amType 2 diabetes mellitus with diabetic chronic kidney diseaseacuteJune 2024 10:36am [facility] Work Phone: 1(823) 682-140006-03-2025 Evaluation note* Diagnosis Onset Date Resolution Status Admit Date Chronic abdominal wound infection acuteJune 2024 10:36amMultiple drug resistant organism (MDRO) culture positiveacuteJune 2024 10:36amOpen abdominal wall woundacuteJune 2024 10:36amType 2 diabetes mellitus with diabetic chronic kidney diseaseacuteJune 2024 10:36amCKD (chronic kidney disease) stage 3, GFR 30-59 ml/minacuteJuly 2024 3:11pmHigh vitamin D levelacuteJuly 2024 3:11pmHyperlipidemia acuteJuly 2024 3:11pmHypertensive chronic kidney disease with stage 1 through stage 4 chronic kiacuteJuly 2024 3:11pmHypoparathyroidismacuteJuly 2024 3:11pmType 2 diabetes mellitus with diabetic chronic kidney disease acuteJuly 2024 3:11pmHyperuricemiaresolvedJuly 2024 3:11pm [facility] Work Phone: 1(728) 353-444405-12-2025 Notedischarge planning: to Home with [facility] resuming services AVS sent to [facility], via CareTongbanjie systemUnRegency Hospital [facility]05-11-2025 NoteThis report has been cancelled.[facility]05-11-2025 NotePatient is currently enrolled with [facility]; updates have been sent. A follow-up phone call confirmed that the patient remains active and is eligible to resume services.[facility]05-11-2025 Note10/10/24 1115 Home Oxygen Therapy Evaluation Pulse Oximetry on room air at Rest 91 Pulse Ox on O2 with nasal cannula while at rest 94 (2L) Pulse Ox on room air while walking 84 Pulse Ox on O2 with nasal cannula while walking 93 (4L) Patient Qualification for home oxygen QualifiesUnRegency Hospital [place]05-11-2025 NoteHospital Medicine Discharge Summary Final Discharge Diagnosis: Right lower lobe pneumonia Uncontrolled hyperglycemia with underlying type 2 diabetes mellitus Chronic kidney disease stage II-III Hyperlipidemia Hypothyroidism Hypertension Class III obesity Mildly elevated troponin likely supply/demand mismatch Anemia likely chronic Admission Diagnosis: NSTEMI (non-ST elevated myocardial infarction) ([facility]) [I21.4] Hospital course: Mary Jane Suarez is a 54 y.o. female with medical [...] None Consultations During Admission: Cardiology Dear JOSE Fournier Authumn is advised to follow up with you within 1-2 weeks. Items to follow up in ambulatory setting: None Follow-up with: PCP Scheduled appointments: Future Appointments Date Time Provider Department Center 11/09/2024 1:45 PM Rebeca Valadez MD [facility] Your medication list START taking these [...] fexofenadine 180 mg tablet Commonly known as: Oral fluticasone 50 mcg/actuation nasal spray Commonly known [...] Medications These medications were sent to [facility] [place] [employer] (more content not included)...[facility]05-10-2025 Note continue oral antihypertensivesUniversFairfield Medical Center05-10-2025 Notereports allergy/intolerance of statins Continue fenofibrateUnRegency Hospital [facility]05-10-2025 NoteBMI 44.12 --> 48.01UnRegency [facility]05-10-2025 Noteuncontrolled with hyperglycemia due to noncompliance of insulin Normally has an insulin pump but she left at home Insulin drip was discontinued and patient switched to 50 Lantus twice daily will increase the dose today to 60 twice daily. Patient can continue her home insulin pump on discharge A1c 9.0UnRegency Hospital [facility]05-10-2025 NoteCreatinine seems at baselineUnRegency Hospital [facility]05-10-2025 Notemonitor hemoglobin, transfuse for hemoglobin less than 7 Monitor clinically for source of bleedingUnRegency Hospital [facility] 10-09-2024 Notecontinue PPIUnRegency Hospital [facility]05-10-2025 Note Continue rate control medications with LopressorUnRegency Hospital [facility]05-10-2025 Notecontinue levothyroxineUnRegency Hospital [facility] 10-09-2024 NoteContinue treatment with ceftriaxone and doxycycline, follow-up culture results Add benadryl to use with doxycycline for allergic reactionUnRegency Hospital [facility]05-10-2025 NoteRepeat troponin Discontinue heparin drip Perform stress test in outpatient post recovery from acute illnessUnRegency Hospital [facility]05-10-2025 NoteHospital Medicine Daily Progress Note - 10/09/2024 10:38 AM; Room: [address] [place] [address] Admission: 10/06/2024 7:39 PM; Length of stay: 3 days THE HOSPITALIST TEAM PREFERS TO USE [employer] FOR NON-URGENT COMMUNICATION 7AM-7PM. IF I DO NOT RESPOND WITHIN 20 MINUTES OR URGENT MATTERS, PLEASE CALL THROUGH THE SALES ORDER PROCESSOR. FROM 7PM-7AM, PLEASE PAGE [phone](COVR). Code Status: Full Code Barriers to Discharge: [...] & Plan NSTEMI (non-ST elevated myocardial infarction) ([facility]) Repeat troponin Discontinue heparin drip Perform stress [...] fenofibrate Insulin dependent type 2 diabetes mellitus ([facility]) uncontrolled with hyperglycemia due to noncompliance of [...] Chronic kidney disease (CKD), stage III (moderate) ([facility]) Creatinine seems at baseline GERD (gastroesophageal reflux [...] LDL 121 10/07/2024 No results found for: [id number] , IRON , TIBC , C3 , C4 , BRITTANY , CANCA , ASO , PSA , CEA , CA125 , CA199 , AFP , CA153 Imaging Complete Echo (TTE) w/wo Imagin (more content not included)...[facility]05-09-2025 NoteBMI 44.12 --> 48.01Un[facility]05-09-2025 Notereports allergy/intolerance of statins Continue fenofibrateUnRegency Hospital [facility]05-09-2025 Notecontinue levothyroxineUnRegency Hospital [facility]05-09-2025 Notecontinue PPI [facility]05-09-2025 Notebaseline unclear, monitor renal function, monitor I's and O'sUnRegency Hospital [facility]05-09-2025 Notecontinue oral antihypertensivesUniversFairfield Medical Center 10-08-2024 Notemonitor hemoglobin, transfuse for hemoglobin less than 7 Monitor clinically for source of bleedingUnRegency Hospital [place] 10-08-2024 NoteContinue treatment with ceftriaxone and doxycycline, follow-up culture results Add benadryl to use with doxycycline for allergic reactionUnRegency Hospital [place]05-09-2025 NoteRepeat troponin Discontinue heparin drip Perform stress test in outpatient post recovery from acute illnessUnRegency Hospital [facility]05-09-2025 Noteuncontrolled with hyperglycemia due to noncompliance of insulin Normally has an insulin pump but she left at home Will start insulin drip to evaluate insulin requirement and then transition to basal/bolus regimen check hemoglobin A1c Discontinue insulin drip 2 hours after first dose of glargine (Lantus) 50 units BIDUnRegency Hospital [facility]05-09-2025 NoteHospital Medicine Daily Progress Note - 10/08/2024 8:04 AM; Room: [address] [place] [address] Admission: 10/06/2024 7:39 PM; Length of stay: 2 days THE HOSPITALIST TEAM PREFERS TO USE [employer] FOR NON-URGENT COMMUNICATION 7AM-7PM. IF I DO NOT RESPOND WITHIN 20 MINUTES OR URGENT MATTERS, PLEASE CALL THROUGH THE SALES ORDER PROCESSOR. FROM 7PM-7AM, PLEASE PAGE [phone](COVR). Code Status: Full Code Barriers to Discharge: insulin, doxycycline, ceftriaxone Expected Discharge Date: 10/09/2024 Discharge Destination: home Overview Patient is seen for evaluation and management of pneumonia, NSTEMI, type II DM. Indy Suarez is a 54 y.o. female presenting with [...] & Plan NSTEMI (non-ST elevated myocardial infarction) ([facility]) Repeat troponin Discontinue heparin drip Perform stress [...] fenofibrate Insulin dependent type 2 diabetes mellitus ([facility]) uncontrolled with hyperglycemia due to noncompliance of [...] Chronic kidney disease (CKD), stage III (moderate) ([facility]) baseline unclear, monitor renal function, monitor I's [...] 10/08/24 0147 POCT GLUCOSE mg/dL 220* 233* 209 (more content not included)...[facility]05-09-2025 Note Attestation signed by Yecenia Buckley MD at 10/08/2024 1:19 PM By [...] Cardiology Progress Note Subjective Subjective: Mary Jane Suarez was seen and examined at bedside. No [...] Value Ventricular Rate 78 Atrial Rate 78 NM Interval 138 QRS DURATION 88 QT Interval 398 QTC CALCULATION(BAZETT) 453 P Morrow 62 R-Morrow 83 T Wave Morrow 42 Impression Normal sinus rhythm Nonspecific T wave abnormality Abnormal ECG When compared with ECG of 09-NOV-2020 07:35, Nonspecific T wave abnormality now evident in Anterior leads Confirmed by Steve FABIAN, L.S. (2) on 10/07/2024 12:01:23 PM No results found for: CKTOTAL , CKMB , CKMBINDEX , TROPONINI Complete Echo (TTE) w/wo Imaging Agent, Strain, 3D, Bubble Study Result Date: 10/07/2024 1 1 [facility] [address] [place] [address] [phone] (fax) Echocardiogram-[facility] Name: MARY JANE DUNHAM Study Date: 10/07/2024 02:33 PM B/P: 137 mmHg/53 mmHg HR: 77 bpm Date of : 1970 Location: [facility] Height: 63 in. Age: 54 year(s) [...] is normal size. Global left ventricular systolic (more content not included)...[facility]05-08-2025 Note Attestation signed by Erin Umaña RD at [...] list. Adult Nutrition Assessment: Name: Mary Jane Dunham Date: 1970 Date of Visit: 10/07/24 Admission Dx: NSTEMI (non-ST elevated myocardial infarction) ([facility]) [I21.4] Reason for assessment: high risk (wt and po intake) Information obtained from: patient, medical record, and nursing Past Medical History: Diagnosis Date Abnormal ECG Asthma Diabetes mellitus ([facility]) Hyperlipidemia Current Medications: allopurinol, 300 mg, oral, [...] is not clinically significant Nutrition Assessment: Pt repo (more content not included)...[facility] 10-07-2024 Notecontinue PPIUnRegency Hospital [facility]05-08-2025 NoteBMI 44.12Un[facility]05-08-2025 Noteuncontrolled with hyperglycemia due to noncompliance of insulin Normally has an insulin pump but she left at home Will start insulin drip to evaluate insulin requirement and then transition to basal/bolus regimen check hemoglobin [id number] Hospital [facility]edo05-08-2025 NoteContinue treatment with ceftriaxone and doxycycline, follow-up culture results Add benadryl to use with doxycycline for allergic reaction Obtain chest X-rayUnRegency Hospital [facility]05-08-2025 Notemonitor hemoglobin, transfuse for hemoglobin less than 7 Monitor clinically for source of bleedingUnRegency Hospital [facility] 10-07-2024 Notebaseline unclear, monitor renal function, monitor I's and O's [facility]05-08-2025 Notecontinue oral antihypertensivesUniversFairfield Medical Center05-08-2025 Notereports allergy/intolerance of statins Continue fenofibrateUnRegency Hospital [facility]05-08-2025 Notecontinue levothyroxineUnRegency Hospital [facility]05-08-2025 NoteRepeat troponin Continue heparin drip Cardiology consultUnRegency Hospital [facility]05-08-2025 NoteHospital Medicine Daily Progress Note - 10/07/2024 10:16 AM; Room: [address] [place] [address] Admission: 10/06/2024 7:39 PM; Length of stay: 1 days THE HOSPITALIST TEAM PREFERS TO USE [employer] FOR NON-URGENT COMMUNICATION 7AM-7PM. IF I DO NOT RESPOND WITHIN 20 MINUTES OR URGENT MATTERS, PLEASE CALL THROUGH THE SALES ORDER PROCESSOR. FROM 7PM-7AM, PLEASE PAGE [phone](COVR). Code Status: Full Code Barriers to Discharge: IV heparin, insulin, ceftriaxone and doxycyline Expected Discharge Date: 10/09/2024 Discharge Destination: home Overview Patient is seen for evaluation and management of right lower lobe pneumonia, NSTEMI, type II diabetes mellitus. [facility] is a 54 y.o female presenting with [...] & Plan NSTEMI (non-ST elevated myocardial infarction) ([facility]) Repeat troponin Continue heparin drip Cardiology consult [...] fenofibrate Insulin dependent type 2 diabetes mellitus ([facility]) uncontrolled with hyperglycemia due to noncompliance of insulin Normally has an insulin pump but she left at home Will start insulin drip to evaluate insulin requirement and then transition to basal/bolus regimen check hemoglobin A1c Class 3 obesity BMI 44.12 Essential hypertension continue oral antihypertensives History of supraventricular tachycardia Chronic kidney disease (CKD), stage III (moderate) ([facility]) baseline unclear, monitor renal function, monitor I's [...] mmol/L 136 POTASSIUM mmol/L 5.1 CHLORIDE mmol/L 10 (more content not included)...[facility]05-08-2025 Notedischarge planning: to Home with [facility] resuming services PC received from Gisela at [facility]; Patient is reported to be active on their services. [facility] added to AVS and RuCC/bedside nurse notified [facility]05-08-2025 Notemonitor on telemetry, trend cardiac enzymes Continue heparin drip Cardiology consultUnRegency Hospital [facility]05-08-2025 Notebaseline unclear, monitor renal function, monitor I's and O'sUnRegency Hospital [facility]05-08-2025 Notecontinue oral antihypertensivesUniBlanchard Valley Health System05-08-2025 Notereports allergy/intolerance of statins Continue fenofibrateUnRegency Hospital [facility]05-08-2025 Notecontinue levothyroxineUnRegency [facility]05-08-2025 Notecontinue PPI [facility]05-08-2025 NoteBMI 44.12UnRegency [facility]05-08-2025 Noteuncontrolled with hyperglycemia due to noncompliance of insulin Normally has an insulin pump but she left at home Will start insulin drip to evaluate insulin requirement and then transition to basal/bolus regimen check hemoglobin [id number] Hospital [facility]05-08-2025 Notemonitor hemoglobin, transfuse for hemoglobin less than 7 Monitor clinically for source of bleedingUnRegency Hospital [facility] 10-07-2024 NoteWill empirically treat with ceftriaxone and doxycycline, follow- up culture resultsUnRegency Hospital [facility]05-07-2025 NoteHospital Medicine History and Physical 10/07/2024 1:19 AM THE HOSPITALIST TEAM PREFERS TO USE [employer] FOR NON-URGENT COMMUNICATION 7AM-7PM. IF I DO NOT RESPOND WITHIN 20 MINUTES OR URGENT MATTERS, PLEASE CALL THROUGH THE SALES ORDER PROCESSOR. FROM 7PM-7AM, PLEASE PAGE [phone](COVR). Chief Complaint cough and shortness of breath History of Present Illness Authsudheer Suarez is an 54 y.o. female who came from the [facility] with 3-day history of shortness of breath [...] & Plan NSTEMI (non-ST elevated myocardial infarction) ([facility]) monitor on telemetry, trend cardiac enzymes Continue [...] fenofibrate Insulin dependent type 2 diabetes mellitus ([facility]) uncontrolled with hyperglycemia due to noncompliance of insulin Normally has an insulin pump but she left at home Will start insulin drip to evaluate insulin requirement and then transition to basal/bolus regimen check hemoglobin A1c Class 3 obesity BMI 44.12 Essential hypertension continue oral antihypertensives History of supraventricular tachycardia Chronic kidney disease (CKD), stag (more content not included)...[facility]04-29-2025 History of Present illness Narrative* Margarito Moon MD - 09/28/2024 1:30 PM EDT Authsudheer Foy [facility] is a 54 y.o. female Margarito Moon MD presents with chief complaint of Diabetes and Follow-up (09/22/24 A1C 9.7%) HPI: IM : 01/2025 follow up visit on 09/28/2024 , using u-500 inside the pump, ( 12 am 0.65, 4 am 0.75, 8 am 1, 12 pm 1.05, 4 pm 1.25. ICR 1:2, ISS 1:20), on Trulicity 4.5 mg once weekly. CGM 01-21-70 AVG 241, A1c 9.7 on 07/2024 with her PCP. IM : 02/2024 follow up visit on 02/09/2024, using u-500 inside the pump off now and using 30 units tid per syringes , ( 12 am 0.65, 4 am 0.75, 8 am 1, 12 pm 1.05, 4 pm 1.25. ICR 1:2, ISS 1:20), on Trulicity 4.5 mg once weekly. CGM AVG 233. IM : 10/2023 follow up visit on 10/13/2023 for urgent visit for high bg 473, using u-500 inside the pump off now and using 30 units tid per syringes , ( 12 am 0.65, 4 am 0.75, 8 am 1, 12 pm 1.05, 4 pm 1.25. ICR 1:2, ISS 1:20), on Trulicity 4.5 mg once weekly. IM : 09/2023 follow up visit on 09/01/2023 A1c 13.4, bg 542, using u-500 inside the pump, 12 am 0.65, 4 am 0.75, 8am 1, 12 pm 1.05, 4 pm 1.25. ICR 1:2, ISS 1:20, on Trulicity 4.5 mg once weekly. off insulin for short tram, plan for EGD soon IM : 04/2023 follow up visit on 04/14/2023 A1c 10.9 , bg 389, using u-500 inside the pump, 12 am 0.65, 4 am 0.75, 8 am 1, 12 pm 1.05, 4 pm 1.25. ICR 1:2, ISS 1:20, on Trulicity 4.5 mg once weekly. pump AVG 282, 122-hi. IM : 12/2022 follow up visit on 01/13/2023 A1c 9.4 , bg 140, using u-500 inside the pump, 12 am 0.65, 4 am 0.75, 8 am 1, 12 pm 1.05, 4 pm 1.25. ICR 1:2, ISS 1:20, on Trulicity 4.5 mg once weekly. pump AVG 262, 143-hi. CGM 06-26-73 avg 248. IM : 08/2022 follow up visit on 09/23/2022 A1c 8.4 , bg 232, using u-500 inside the pump, 12 am 0.65, 4 am 0.75, 8 am 1, 12 pm 1.05, 4 pm 1.25. ICR 1:2, ISS 1:40, on Trulicity 4.5 mg once weekly. pump AVG 242, TDD45, 49/51% IM 06/2022 follow up visit on 06/17/2022 A1c 10.4 , bg 270, using u-500 inside the pump, 12 am 0.1, 4 am 0.75, 8 am 1, 12 pm 1.05, 4 pm 1.25. ICR 1:2, ISS 1:50, on trulcity 4.5 mg once weekly. CHM 1-33-56 AVG 228 IM 10/2021 follow up visit on 11/20/2021 A1c 10 , bg 154, using u-500 inside the pump, 12 am 0.7, 4 am 0.75, 8 am 1, 12 pm 1.30, 4 pm 1.25. ICR 1:7, on trulcity 4.5 mg once weekly. CGM 0-20-80 AVG 289 IM 05/2021 follow up visit on 05/16/2021 A1c 8.6, bg 126, using u-500 inside the pump, 12 am 0.7, 4 am 0.75, 8am 1, 12 pm 1.30, 4 pm 1.25. ICR 1:7, ISS 12 AM 30, 8 AM 40, target 110, . pump avg 235, 47/53%, TDD 38 units, on trulcity 3 mg once weekly IM 01/2021 follow up visit on 02/13/2021 A1c 7.5, bg 126, using u-500 insied the pump, 12 am 0.7, 4 am 0.65, 8am 1, 12 pm 1.25, 4 pm 1.25. ICR 1:6, ISS 12 AM 30, 8 AM 40, target 110, CGM 1046-44 AVG 176. pumpavg 222, 32/68%, TDD 59.5 units( equal to almost 300), on trulcity 1.5 mg once weekly HPI: 10/2020 New patient to this office. Last time saw me in the old office. CGM interpretation: 3% low range, 42% in good range, 55% in high range. Insulin pump: 12 AM, 1; 4 AM 0.8; 8 AM 0.65; 12 PM 1.25; 4 PM 1.5. ICR 1:6 and ISS 12 AM 30 and 8 AM 20 and insulin pump downloaded, average 241, 29% basal, 71% bolus, total daily dose 84. She is using Humalog 200. She is morbidly obese. Body mass index 40. She wants to go with U-500 insulin pump. She left the nurse practitioner she used before since she was not able to put her on U-500 and she just upgraded her Trulicity to 3 mg once weekly. SUBJECTIVE: MEDICATIONS: Current Outpatient Medications Medication Instructions albuterol HFA (Ventolin HFA) 90 mcg/act inhaler 2 puffs, 3 times daily allopurinol (ZYLOPRIM) 300 mg, Every 24 hours ascorbic acid (VITAMIN C) 250 mg, Every 24 hours ascorbic acid (VITAMIN C) 250 mg, Daily biotin 10 mg, Daily budesonide-formoterol (Symbicort) 160-4.5 MCG/ACT inhaler 2 puffs, Every 12 hours calcium carbonate (OS-VANI) 1,250 mg, Every 12 hours Calcium Polycarbophil (fiber) 625 MG tablet 2 tablets, Every 6 hours Lake DMT 30-30 MG tablet 30 mg, Daily cholecalciferol (Vitamin D-3) 50 MCG (2000 UT) capsule 1 capsule, Every 24 hours cholecalciferol (VITAMIN D-3) 2,000 Units, Daily RT cinnamon 2,000 mg, Daily RT clindamycin (CLEOCIN) 300 mg, 3 times daily clopidogrel (PLAVIX) 75 mg, Daily Continuous Glucose Sensor (FreeStyle Lisbeth 2 Sensor) misc CHANGE EVERY 14 DAYS. cyclobenzaprine (FLEXERIL) 10 mg, Every 24 hours diclofenac (VOLTAREN) 75 mg, 2 times daily Docusate Sodium (DSS) 250 MG capsule 1 capsule, Daily PRN doxycycline (MONODOX) 100 mg, 2 times daily Dulaglutide 4.5 MG/0.5ML solution auto-injector 1 Dose, Subcutaneous, Weekly Dupilumab (Dupixent) 300 MG/2ML solution auto-injector fenofibrate (TRIGLIDE) 160 mg, Every 24 hours ferrous sulfate 325 mg, Daily with breakfast fexofenadine (ORAL) 180 mg, Daily RT furosemide (LASIX) 40 mg, Daily furosemide (LASIX) 20 mg, 2 times daily HumuLIN R 500 UNIT/ML CONCENTRATED injection 500 mL, Every morning HumuLIN R 250 Units, Subcutaneous, Daily indomethacin (INDOCIN) 50 mg, 2 times daily with meals insulin regular (HumuLIN R U-500 KWIKPEN) 500 UNIT/ML CONCENTRATED injection 500 mL, Nightly Inulin 2 g Lactobacillus (Acidophilus) capsule 1 capsule, 3 times daily with meals levoFLOXacin (LEVAQUIN) 250 mg, Daily levothyroxine (SYNTHROID, LEVOXYL) 100 mcg, Every 24 hours lisinopril 10 MG tablet Daily Lyrica 100 mg, Oral, 3 times daily metoprolol tartrate (LOPRESSOR) 50 mg, Every 12 hours montelukast (SINGULAIR) 10 mg, Daily pantoprazole (PROTONIX) 40 mg, Every 24 hours pregabalin (LYRICA) 100 mg, Oral, 3 times daily tiotropium (Spiriva Respimat) 1.25 MCG/ACT inhaler 2 puffs, Every 24 hours traMADol (ULTRAM) 50 mg, Every 6 hours PRN zileuton CR (ZYFLO CR) 1,200 mg, Every 12 hours ALLERGIES: Allergies Allergen Reactions Penicillins Unknown and Anaphylaxis Sulfamethoxazole Anaphylaxis and Swelling Sulfamethoxazole-Trimethoprim Anaphylaxis Sulfanilamide Anaphylaxis Trimethoprim Anaphylaxis Cefprozil Hives Cephalexin Hives Cephalosporins Hives Ciprofloxacin Other and Hives Moxifloxacin Hives and Unknown Oxycodone-Acetaminophen Other and GI intolerance Aspirin Rash Wound Dressing Adhesive Rash Past Medical History: Diagnosis Date Allergies Anemia Arthritis Asthma ([facility]) Asthma ([facility] Diabetes mellitus ([facility]) Dietary counseling and surveillance DJD (degenerative joint disease) DM (diabetes mellitus) ([facility]) Encounter for fitting or adjustment of insulin pump H/O arthroscopic knee surgery 1987 Herniated cervical disc History of cardiac cath History of migraine headaches nursing home (current) use of insulin ([facility]) Mixed hyperlipidemia ([facility]) Morbid obesity with BMI of 50.0-59.9, adult ([facility]) Obesity Onychomycosis Osteoarthritis Presence of insulin pump Right upper quadrant pain Supraventricular tachycardia ([facility]) Supraventricular tachycardia ([facility]) Thyroid disease ([facility]) Tinea pedis Type 2 diabetes mellitus with hyperglycemia ([facility]) Vitamin D deficiency Past Surgical History: Procedure Laterality Date BACK SURGERY 2011 CARPAL TUNNEL RELEASE 2000 CHOLECYSTECTOMY 2000 EYE EXAM 2012 KNEE SURGERY 1999 knee arthroscopy ROTATOR CUFF REPAIR 2009 TONSILLECTOMY 1972 REVIEW OF SYMPTOMS: 14 POINT OF SYSTEM REVIEWED AND NEGATIVE OBJECTIVE: Constitutional: Afebrile @ home; no weakness or night sweats SKIN: No change in skin color; no itching, rash or lesions; no hair loss; HEENT: No HAs or injury; no dizziness; No difficulty with vision; no eye pain, discharge or lesions; no hearing loss or difficulty; no nasal discharge, NECK: No pain, limitation of motion, lumps or swollen glands RESP: No cough, wheezing or difficulty breathing. No CP with breathing; CARDIO: No CP , SOB or fatigue, No edema, palpitations or dyspnea with exertion GI: No N/V/D or abd. pain; good appetite with no recent change. No heart burn, liver or gallbladderdisease; no rectal bleeding or pain : No urinary pain , frequency or odor. MUSCULOSKELETAL: No muscle pain or cramps; no extremity weakness.No joint pain, stiffness, swellingor limitation of movement NEUROLOGY: No H/O seizures, stroke or fainting. No weakness, tremors. Hematology: No bleeding problems or excessive bruising ENDOCRINE: No increase in hunger, thirst or urination; admits compliance to medical management plan Feet: numbness tingling yes , ulcers or skin break yes Lab Results Component Value Date GLU 188 09/28/2024 GLU 73 05/04/2024 GLU 93 05/04/2024 Visit Vitals BP 128/62 Pulse 99 Resp 18 Ht 5' 2 Wt 283 lb SpO2 97% BMI 51.76 kg/m Smoking Status Never BSA 2.37 m ASSESSMENT AND PLAN: Assessment/Plan Diagnoses and all orders for this visit: Type 2 diabetes mellitus without complication, with long-term current use of insulin - POCT glucose manually resulted - Dulaglutide 4.5 MG/0.5ML solution auto-injector; Inject 1 Dose under the skin 1 (one) time per week - insulin regular (HumuLIN R) 500 UNIT/ML CONCENTRATED injection; Inject 250 Units under the skin Daily We will continue with the same insulin pump settings, Trulicity 4.5 mg once weekly. Acquired hypothyroidism (CMS/HCC) Mixed hyperlipidemia (CMS/HCC) Encounter for dietary consultation Insulin long-term use (CMS/HCC) Encounter for fitting or adjustment of insulin pump Insulin pump in place Class 3 severe obesity due to excess calories with serious comorbidity and body mass index (BMI) of50.0 to 59.9 in adult Diet and exercise reviewed with the patient Follow up in about 3 months (around 12/28/2024). documented in this encounterLee's Summit [id number] Evaluation note* Diagnosis Onset Date Resolution Status Admit Date Chronic abdominal wound infection acuteApril 2024 10:12amMultiple drug resistant organism (MDRO) culture positiveacuteApril 2024 10:12amOpen abdominal wall woundacuteApril 2024 10:12amType 2 diabetes mellitus with diabetic chronic kidney diseaseacute September 07, 2024 10:12am [facility] Work Phone: 1([phone] Evaluation note* Diagnosis Onset Date Resolution Status Admit Date Chronic abdominal wound infection acuteMarch 2024 9:30amMultiple drug resistant organism (MDRO) culture positiveacuteMarch 2024 9:30amOpen abdominal wall woundacuteMarch 2024 9:30amType 2 diabetes mellitus with diabetic chronic kidney diseaseacute August 17, 2024 9:30am [facility] Work Phone: 1([phone]) 732-480903-12-2025 Radiology Diagnostic study [place] [address] CT Scan Report Signed Patient: Mary Jane Suarez MR#: [id number] : 1970 Acct:[id number] Age/Sex: 54 / F ADM Date: 5 Loc: ER Room: Type: [facility] ER Attending Dr: Copies to: Jorge [...] Mihai Jackson M.D.08/11/2024 9:01 PM Dictation Location: RADIO-[id number] Transcribed By: [facility] 08/11/242100 Dictated By: Mihai Jackson DO 08/11/242051 Signed By: 08/11/242100 [facility]03-11-2025 History of Present illness Narrative * GEORGIA Butt - 08/10/2024 11:00 AM EDT Subjective Authumn Danii Suarez is a 54 y.o. year old female Chief Complaint Patient presents with Tremors Past Medical History: Diagnosis Date Allergies Anemia Arthritis Asthma (CMS/HCC) Asthma (CMS/HCC) Diabetes mellitus (CMS/HCC) Dietary counseling and surveillance DJD (degenerative joint disease) DM (diabetes mellitus) (CMS/HCC) Encounter for fitting or adjustment of insulin pump H/O arthroscopic knee surgery 1987 Herniated cervical disc History of cardiac cath History of migraine headaches nursing home (current) use of insulin (CMS/HCC) Mixed hyperlipidemia (CMS/HCC) Morbid obesity with BMI of 50.0-59.9, adult (CMS/HCC) Obesity Onychomycosis Osteoarthritis Presence of insulin pump Right upper quadrant pain Supraventricular tachycardia (CMS/HCC) Supraventricular tachycardia (CMS/HCC) Thyroid disease (CMS/HCC) Tinea pedis Type 2 diabetes mellitus with hyperglycemia (CMS/HCC) Vitamin D deficiency Past Surgical History: Procedure Laterality Date BACK SURGERY 2011 CARPAL TUNNEL RELEASE 2000 CHOLECYSTECTOMY 2000 EYE EXAM 2012 KNEE SURGERY 1999 knee arthroscopy ROTATOR CUFF REPAIR 2009 TONSILLECTOMY 1972 Family History Problem Relation Name Age of Onset Kidney failure Mother Hypertension Mother Heart disease Mother COPD Father Kidney failure Father Diabetes Father Hypertension Father Osteoporosis Father Heart disease Brother x 1 Heart disease Maternal Grandfather No Known Problems Paternal Grandmother Social History Tobacco Use Smoking status: Never Passive exposure: Never Smokeless tobacco: Never Substance Use Topics Alcohol use: Never Medication Documentation Review Audit Reviewed by JULIAN VILLAREAL (Registered Nurse) on 04/08/24 at 1308 Medication Order Taking? Sig Documenting Provider Last Dose Status albuterol HFA (Ventolin HFA) 90 mcg/act inhaler [id number] No Inhale 2 puffs in the morning and 2 puffs in the evening and 2 puffs before bedtime. Historical MD Jesse Taking Active allopurinol (Zyloprim) 300 MG tablet [id number] No Take 300 mg by mouth 1 (one) time each day at the same time. Historical MD Jesse Taking Active ascorbic acid (Vitamin C) 250 MG chewable tablet [id number] No Chew 250 mg in the morning. PushpaProMD kenya Taking Active ascorbic acid (Vitamin C) 250 MG tablet [id number] No Take 250 mg by mouth 1 (one) time each day at the same time. Historical MD Jesse Taking Active biotin 10 MG capsule [id number] No Take 10 mg by mouth in the morning. Historical MD Jesse TakingActive budesonide-formoterol (Symbicort) 160-4.5 MCG/ACT inhaler [id number] No Inhale 2 puffs every 12 (twelve) hours. Historical ProviderMD Taking Active calcium carbonate (Os-Vani) 1250 (500 Ca) MG tablet [id number] No Take 1,250 mg by mouth every 12 (twelve) hours. Historical MD Jesse Taking Active Lake DMT 30-30 MG tablet [id number] No Take 30 mg by mouth in the morning. Pushpa Cavazos MD Taking Active cholecalciferol (Vitamin D-3) 50 MCG (1999 UT) capsule [id number] No Take 1 capsule by mouth 1 (one) time each day at the same time. Pushpa Cavazos MD Taking Active cholecalciferol (Vitamin D-3) 50 MCG (1999) capsule [id number] No Take 2,000 Units by mouth in themorning. Pushpa Cavazos MD Taking Active cinnamon 500 MG capsule [id number] No Take 2,000 mg by mouth in the morning. Pushpa Cavazos MD Taking Active clindamycin (Cleocin) 300 MG capsule [id number] No Take 300 mg by mouth in the morning and 300 mg in the evening and 300 mg before bedtime. Pushpa Cavazos MD Taking Active clopidogrel (Plavix) 75 MG tablet [id number] No Take 75 mg by mouth Daily GEORGIA Butt Taking Active cyclobenzaprine (Flexeril) 10 MG tablet [id number] No Take 10 mg by mouth 1 (one) time each day at the same time. Pushpa Cavazos MD Taking Active diclofenac (Voltaren) 75 MG EC tablet [id number] No Take 75 mg by mouth in the morning and 75 mg before bedtime. Pushpa Cavazos MD Taking Active doxycycline (Monodox) 100 MG capsule [id number] No Take 100 mg by mouth in the morning and 100 mg before bedtime. Pushpa Cavazos MD Taking Active fenofibrate (Triglide) 160 MG tablet [id number] No Take 160 mg by mouth 1 (one) time each day at the same time. Pushpa Cavazos MD Taking Active ferrous sulfate 325 (65 Fe) MG tablet [id number] No Take 325 mg by mouth in the morning. Take with meals. Pushpa Cavazos MD Taking Active fexofenadine (Oral) 180 MG tablet [id number] No Take 180 mg by mouth in the morning. Pushpa Cavazos MD Taking Active furosemide (Lasix) 20 MG tablet [id number] No Take 20 mg by mouth in the morning and 20 mg before bedtime. Pushpa Cavazos MD Taking Active furosemide (Lasix) 40 MG tablet [id number] No Take 40 mg by mouth in the morning. Pushpa Cavazos MD Taking Active HumuLIN R 500 UNIT/ML CONCENTRATED injection [id number] No Inject 500 mL under the skin in the morning. Pushpa Cavazos MD Taking Active indomethacin (Indocin) 50 MG capsule [id number] No Take 50 mg by mouth in the morning and 50 mg in the evening. Take with meals. Pushpa Cavazos MD Taking Active insulin regular (HumuLIN R U-500 KWIKPEN) 500 UNIT/ML CONCENTRATED injection [id number] No Inject 500mL under the skin at bedtime. Pushpa Cavazos MD Taking Active Inulin 2 g chewable tablet [id number] No Chew 2 g. Pushpa Cavazos MD Taking Active Lactobacillus (Acidophilus) capsule [id number] No Take 1 capsule by mouth in the morning and 1 capsule at noon and 1 capsule in the evening. Take with meals. Pushpa Cavazos MD Taking Active levoFLOXacin (Levaquin) 250 MG tablet [id number] No Take 250 mg by mouth Daily Manolo Sanchez DO Taking Active levothyroxine (Synthroid, Levoxyl) 175 MCG tablet [id number] No Take 100 mcg by mouth 1 (one) time each day at the same time. Pushpa Cavazos MD Taking Active lisinopril 10 MG tablet [id number] No Take by mouth Daily GEORGIA Butt Taking Active Lyrica 100 MG capsule [id number] No Take 1 capsule (100 mg) by mouth in the morning and 1 capsule (100 mg) in the evening and 1 capsule (100 mg) before bedtime. GEORGIA Butt Taking Active metoprolol tartrate (Lopressor) 50 MG tablet [id number] No Take 50 mg by mouth every 12 (twelve) hours. Pushpa Cavazos MD Taking Active montelukast (Singulair) 10 MG tablet [id number] No Take 10 mg by mouth in the morning. Pushpa Cavazos MD Taking Active pantoprazole (ProtoNix) 40 MG EC tablet [id number] No Take 40 mg by mouth 1 (one) time each day at the same time. Pushpa Cavazos MD Taking Active pregabalin (Lyrica) 100 MG capsule [id number] No Take 1 capsule (100 mg) by mouth in the morning and 1 capsule (100 mg) in the evening and 1 capsule (100 mg) before bedtime. GEORGIA Butt Taking Active tiotropium (Spiriva Respimat) 1.25 MCG/ACT inhaler [id number] No Inhale 2 puffs 1 (one) time each dayat the same time. Pushpa Cavazos MD Taking Active traMADol (Ultram) 50 MG tablet [id number] No Take 50 mg by mouth every 6 (six) hours if needed. Pushpa Cavazos MD Taking Active zileuton CR (Zyflo CR) 600 MG 12 hr tablet [id number] No Take 1,200 mg by mouth every 12 (twelve) hours. Historical Provider, Taking Active HPI IMBALANCE -imbalance continues -some days are better than others -admits to numbness and tingling in [place] feet -right is worse than left most of the time -occasionally will radiate up leg, depends on how long she was on her feet that day -ambulates with cane -admits to a recent fall . TREMOR -tremor is the same, no worsening -located in LU[place] hands -left is worse than right -notices mostly with activity -denies any hand weakness or gripping trouble -no trouble with eating, drinking, or writing -reports carrying things in her hands is a challenge LUMBAR PAIN -on lyrica -back pain recently flared up after fall -got adjusted by chiropractor and this has helped -pain is located in low back -radiates in to hips and occasionally up the back -change in weather continues to trigger -warm to cool really makes her sore ROS Review of Systems Constitutional: Negative. Respiratory: Negative. Cardiovascular: Negative. Gastrointestinal: Negative. Musculoskeletal: Positive for back pain and gait problem. Neurological: Positive for tremors. Objective Visit Vitals BP 138/82 Pulse 93 Resp 16 Ht 5' 2 Wt 267 lb SpO2 96% BMI 48.83 kg/m Smoking Status Never BSA 2.3 m Neurological Exam Mental Status Awake, alert and oriented to person, place and time. Recent and remote memory are intact. Speech isnormal. Language is fluent with no aphasia. Attention and concentration are normal. Fund of knowledge is appropriate for level of education. Cranial Nerves CN II: Visual acuity is normal. Visual cox full to confrontation. CN III, IV, : Extraocular movements intact bilaterally. Normal lids and orbits bilaterally. Pupils equal round and reactive to light bilaterally. CN V: Facial sensation is normal. CN VII: Full and symmetric facial movement. CN VIII: Hearing is normal. CN XI: Shoulder shrug strength is normal. Motor Normal muscle bulk throughout. Normal muscle tone. No abnormal involuntary movements. Sensory Light touch is normal in upper and lower extremities. Temperature is normal in upper and lower extremities. Gait Ambulates with a cane. Motor Examination RUE Strength deltoid, biceps, triceps, wrist extensors, wrist extensors, wrist flexor, equine breeder strength 5/5. LUE Strength deltoid, biceps, triceps, wrist extensors, wrist extensors, wrist flexor, equine breeder strength 5/5. RLE Strength illopsoas, quadriceps, tibialis anterior, and gastrocnemius strength 5/5. LLE Strength illopsoas, quadriceps, tibialis anterior, and gastrocnemius strength 5/5. Tone Normal tone x4 extremities. Reflexes: RUE biceps reflex 2, brachioradialis reflex 2 LUE biceps reflex 2, brachioradialis reflex 2 RLE knee reflex 1, ankle reflex 0 LLE knee reflex 1, ankle reflex 0 Assessment and Plan Diagnoses and all orders for this visit: Tremor Patient states that she has noticed tremor since her last visit mainly occurring in her hands whileholding cups. Her father also had tremor in his hands and feet. She did not tolerate Topamax or primidone. Tremor is at baseline. Bilateral carpal tunnel syndrome Patient with bilateral median neuropathy consistent with carpal tunnel syndrome. H/o carpal tunnel release. Migraine without aura and without status migrainosus, not intractable (CMS/HCC) Headaches consistent with migraines. Weather changes cause worsening. Lumbar back pain Lumbar spondylosis Lumbar radiculopathy Back pain due to underlying degenerative spondylosis and bilateral S1 radiculopathies. She has previously seen pain management. MRI lumbar spine 08/2019 at [facility] and followed up with Dr. Cadena and has SI joint inflammation and was referred to pain management. She received injections for s ome time but these became ineffective. She is having balance issues and has completed PT. She is having increase in leg pain due to osteoarthritis. She has resumed lyrica and is tolerating well. She reportedly cannot take the generic. She does have flares with weather changes. She has had some increase in symptoms after a recent fall. She was evaluated at the ED with no acute findings. BLE EMG 08/18/2019: revealed bilateral S1 radiculopathies, L>R. PLAN Continue Lyrica 100mg PO TID for neuropathic pain OARRS reviewed Patient was counseled on fall precautions Patient to follow up with this clinic in 4 months documented in this encounterLee's Summit [id number] Telephone encounter Note* Telephone Encounter - Michael Boles - 08/02/2024 1:31 PM EST Please refill sensors to [facility] please and thank you! [facility] [id number] Miscellaneous Notes* Telephone Encounter - Michael Trinidadarthy - 08/02/2024 1:31 PM EST Please refill sensors to [facility] please and thank you! documented in this encounterLee's Summit [id number] Evaluation note* Diagnosis Onset Date Resolution Status Admit Date Chronic abdominal wound infection acuteFebruary 2024 10:49amMultiple drug resistant organism (MDRO) culture positiveacuteFebruary 2024 10:49amType 2 diabetes mellitus with diabetic chronic kidney diseaseacuteFebruary 2024 10:49am [facility] Work Phone: [phone]) [phone] [facility] Chief Complaint: Patient here [...] care for the bite. HPI: Mary Jane Suarez is a 54 y.o. female woman with [...] history of Abnormal ECG, Asthma, Diabetes mellitus ([facility]), and Hyperlipidemia. Surgical History She has a [...] mg by mouth., Disp: , Rfl: fexofenadine (Oral) 180 mg tablet, Take 180 mg by mouth in the morning., Disp: , Rfl: furosemide (Lasix) 20 mg tablet, Take 20 mg by mouth in the morning and at bedtime., Disp: , Rfl: HumuLIN R U-500, Conc, Insulin 500 unit/mL CONCENTRATED injection, USE WITH INSULIN PUMP (EXPECT UP TO 200 UNITS TOTAL DAILY, Disp: , Rfl: le (more content not included)...[facility]11-07-2024 History of Present illness Narrative* Benito Romero, MICHAEL - 04/08/2024 1:10 PM EST Patient: Authumn D [facility]: 1970 PCP: Kamran Chatterjee MD SUBJECTIVE This is a 53 y.o. female that presents today with a CC of elongated, thick nails. Pt states nails have been elongated and thick for many years and cause pain with ambulation in shoegear. Pt has tried previous treatment with minimal relief. Pt presents today for nail care and treatment. Patient is DM2 with peripheral neuropathy Allergies: Allergies Allergen Reactions Penicillins Unknown and Anaphylaxis Sulfamethoxazole Anaphylaxis and Swelling Sulfamethoxazole-Trimethoprim Anaphylaxis Sulfanilamide Anaphylaxis Trimethoprim Anaphylaxis Cefprozil Hives Cephalexin Hives Cephalosporins Hives Ciprofloxacin Other and Hives Moxifloxacin Hives and Unknown Oxycodone-Acetaminophen Other and GI intolerance Aspirin Rash Wound Dressing Adhesive Rash Past Medical History: Past Medical History: Diagnosis Date Allergies Anemia Arthritis Asthma (CMS/HCC) Asthma (CMS/HCC) Diabetes mellitus (CMS/HCC) DJD (degenerative joint disease) DM (diabetes mellitus) (CMS/HCC) H/O arthroscopic knee surgery 1987 Herniated cervical disc History of cardiac cath History of migraine headaches Obesity Onychomycosis Osteoarthritis Right upper quadrant pain Supraventricular tachycardia (CMS/HCC) Supraventricular tachycardia (CMS/HCC) Thyroid disease (CMS/HCC) Tinea pedis Medications: Current Outpatient Medications: albuterol HFA (Ventolin HFA) 90 mcg/act inhaler, Inhale 2 puffs in the morning and 2 puffs in the evening and 2 puffs before bedtime., Disp: , Rfl: allopurinol (Zyloprim) 300 MG tablet, Take 300 mg by mouth 1 (one) time each day at the same time.,Disp: , Rfl: ascorbic acid (Vitamin C) 250 MG chewable tablet, Chew 250 mg in the morning., Disp: , Rfl: ascorbic acid (Vitamin C) 250 MG tablet, Take 250 mg by mouth 1 (one) time each day at the same time., Disp: , Rfl: biotin 10 MG capsule, Take 10 mg by mouth in the morning., Disp: , Rfl: budesonide-formoterol (Symbicort) 160-4.5 MCG/ACT inhaler, Inhale 2 puffs every 12 (twelve) hours.,Disp: , Rfl: calcium carbonate (Os-Vani) 1250 (500 Ca) MG tablet, Take 1,250 mg by mouth every 12 (twelve) hours., Disp: , Rfl: Lake DMT 30-30 MG tablet, Take 30 mg by mouth in the morning., Disp: , Rfl: cholecalciferol (Vitamin D-3) 50 MCG (1999 UT) capsule, Take 1 capsule by mouth 1 (one) time each day at the same time., Disp: , Rfl: cholecalciferol (Vitamin D-3) 50 MCG (1999 UT) capsule, Take 2,000 Units by mouth in the morning., Disp: , Rfl: cinnamon 500 MG capsule, Take 2,000 mg by mouth in the morning., Disp: , Rfl: clindamycin (Cleocin) 300 MG capsule, Take 300 mg by mouth in the morning and 300 mg in the eveningand 300 mg before bedtime., Disp: , Rfl: clopidogrel (Plavix) 75 MG tablet, Take 75 mg by mouth Daily, Disp: , Rfl: cyclobenzaprine (Flexeril) 10 MG tablet, Take 10 mg by mouth 1 (one) time each day at the same time., Disp: , Rfl: diclofenac (Voltaren) 75 MG EC tablet, Take 75 mg by mouth in the morning and 75 mg before bedtime., Disp: , Rfl: doxycycline (Monodox) 100 MG capsule, Take 100 mg by mouth in the morning and 100 mg before bedtime., Disp: , Rfl: fenofibrate (Triglide) 160 MG tablet, Take 160 mg by mouth 1 (one) time each day at the same time.,Disp: , Rfl: ferrous sulfate 325 (65 Fe) MG tablet, Take 325 mg by mouth in the morning. Take with meals., Disp:, Rfl: fexofenadine (Oral) 180 MG tablet, Take 180 mg by mouth in the morning., Disp: , Rfl: furosemide (Lasix) 20 MG tablet, Take 20 mg by mouth in the morning and 20 mg before bedtime., Disp: , Rfl: furosemide (Lasix) 40 MG tablet, Take 40 mg by mouth in the morning., Disp: , Rfl: HumuLIN R 500 UNIT/ML CONCENTRATED injection, Inject 500 mL under the skin in the morning., Disp: ,Rfl: indomethacin (Indocin) 50 MG capsule, Take 50 mg by mouth in the morning and 50 mg in the evening. Take with meals., Disp: , Rfl: insulin regular (HumuLIN R U-500 KWIKPEN) 500 UNIT/ML CONCENTRATED injection, Inject 500 mL under the skin at bedtime., Disp: , Rfl: Inulin 2 g chewable tablet, Chew 2 g., Disp: , Rfl: Lactobacillus (Acidophilus) capsule, Take 1 capsule by mouth in the morning and 1 capsule at noon and 1 capsule in the evening. Take with meals., Disp: , Rfl: levoFLOXacin (Levaquin) 250 MG tablet, Take 250 mg by mouth Daily, Disp: , Rfl: levothyroxine (Synthroid, Levoxyl) 175 MCG tablet, Take 100 mcg by mouth 1 (one) time each day at the same time., Disp: , Rfl: lisinopril 10 MG tablet, Take by mouth Daily, Disp: , Rfl: Lyrica 100 MG capsule, Take 1 capsule (100 mg) by mouth in the morning and 1 capsule (100 mg) in the evening and 1 capsule (100 mg) before bedtime., Disp: 270 capsule, Rfl: 0 metoprolol tartrate (Lopressor) 50 MG tablet, Take 50 mg by mouth every 12 (twelve) hours., Disp: ,Rfl: montelukast (Singulair) 10 MG tablet, Take 10 mg by mouth in the morning., Disp: , Rfl: pantoprazole (ProtoNix) 40 MG EC tablet, Take 40 mg by mouth 1 (one) time each day at the same time., Disp: , Rfl: pregabalin (Lyrica) 100 MG capsule, Take 1 capsule (100 mg) by mouth in the morning and 1 capsule (100 mg) in the evening and 1 capsule (100 mg) before bedtime., Disp: 270 capsule, Rfl: 0 tiotropium (Spiriva Respimat) 1.25 MCG/ACT inhaler, Inhale 2 puffs 1 (one) time each day at the same time., Disp: , Rfl: traMADol (Ultram) 50 MG tablet, Take 50 mg by mouth every 6 (six) hours if needed., Disp: , Rfl: zileuton CR (Zyflo CR) 600 MG 12 hr tablet, Take 1,200 mg by mouth every 12 (twelve) hours., Disp: , Rfl: Social History: Social History Socioeconomic History Marital status: Spouse name: Not on file Number of children: Not on file Years of education: Not on file Highest education level: Not on file Occupational History Not on file Tobacco Use Smoking status: Never Passive exposure: Never Smokeless tobacco: Never Substance and Sexual Activity Alcohol use: Never Drug use: Never Sexual activity: Not on file Other Topics Concern Not on file Social History Narrative Not on file Social Drivers of Health Financial Resource Strain: Not on file Food Insecurity: No Food Insecurity (03/10/2024) Received from [facility] Hunger Screening Within the past 12 months we worried whether our food would run out before we got money to buy more.: Never True Within the past 12 months the food we bought just didn't last and we didn't have money to get more.: Never True Transportation Needs: No Transportation Needs (02/20/2024) Received from [facility] PRAPARE - Transportation Lack of Transportation (Medical): No Lack of Transportation (Non-Medical): No Physical Activity: Not on file Stress: Not on file Social Connections: Not on file Intimate Partner Violence: Unknown (07/24/2023) [facility] [place] Safety & Environment Fear of Current or Ex-Partner: Not on file Emotionally Abused: Not on file Physically Abused: Not on file Sexually Abused: Not on file Physically or Sexually Abused: Not on file Housing Stability: Low Risk (02/20/2024) Received from [facility] Housing Instability Are you worried or concerned that in the next two months you may not have stable housing that you own, rent or stay in as a part of a household?: No ROS: General: denies fever, chills, fatigue, malaise OBJECTIVE LE EXAM: DERM: Elongated thick yellow crumbly nails digits 1 through 9. Negative hair growth with thin shinyatrophic skin bilaterally VASC: Negative DP and negative PT pedal pulses NEURO: 5.07 [place] Ayla monofilament test diminished to digits and forefoot bilaterally 125Hz tuning fork diminished to 1st MPJ bilaterally ORTHO: Positive pain on palpation to nails 1 through 9 ASSESSMENT Onychomycosis nails 1-9 Painful toenails 1-9 DM2 with Peripheral neuropathy PLAN Discussed proper foot care with patient today. Debride nails in length and thickness digits 1 through 9 Patient educated today on proper diabetic foot care including monitoring feet daily for any signs of infection openings in the skin or irregularities to both feet. Patient had a diabetic neurologicalexam today to both their feet and discussed proper shoe gear. Benito Romero DPM documented in this encounterLee's Summit [id number] Discharge summary Author Billy Nickerson [facility] March 24, 2024 12:19pmNote Date/TimeOct2023 11:46am[place] [address] Discharge Summary Signed Patient: Mary Jane Suarez MR#: [id number] : 1970 Acct:[id number] Age/Sex: 53 / F Adm Date: 4 Loc: Room: [address] [place] [address]: Billy Nickerson MD Copies to: MD Ann Sánchez CNP~ Providers Date of Discharge: 03/24/24 Discharging Provider: Billy Nickerson Primary Care Provider: Ann Fournier Consults: 03/17/24 20:08 Consult to General Surgery Routine Comment: Consulting Provider: Troy Moya Reason For Exam: Large abdominal wall infection, needs debridement Has Provider Been Notified: Yes Date of Notification: 03/18/24 Time of Notification: 07:18 Extended Comment: I already started her on IV antibiotics Consult to Infectious Diseases Routine Comment: Consulting Provider: Antonio Jenkins Reason For Exam: Large abdominal wall infection Has Provider Been Notified: Yes Date of Notification: 03/18/24 Time of Notification: 07:18 03/17/24 20:09 Consult to Physical Therapy Routine Comment: Physician Instructions: Consult to PT for:: Evaluation and Treat Discharge Diagnosis (1) Chronic abdominal wound infection: (2) Hyperlipidemia: (3) Type 2 diabetes mellitus with diabetic chronic kidney disease: (4) CKD (chronic kidney disease) stage 3, GFR 30-59 ml/min: (5) Hypoparathyroidism: (6) Hyperuricemia: (7) Multiple drug resistant organism (MDRO) culture positive: Final Diagnosis Final Discharge Diagnosis: As above Summary Hospital Course Hospital course: Ms. Suarez is a 53yo F with PMH of T2DM, CKD 3, HTN, iron deficiency anemia, morbid obesity, asthma, iron deficiency anemia, morbid obesity who presented to the emergency department with complaints of worsening abdominal wound on the right lower pannus. She had been followed by an outside hospital wound care clinic, whom she was not happy with as she felt the wound was worsening. Patient was evaluated by infectious diseases and general surgery. Patient underwent tissue debridement by generalsurgery on 03/19/2024. She tolerated the procedure well. Culture of the tissue is growing Achromobacter XylosoxidansMDRO. Infectious diseases recommended IV meropenem for treatment. PICC was placed and patient is recommended for 3 weeks of IV meropenem on discharge. Rosaurall follow- up with [facility] as an outpatient. She was discharged with home health and in stable condition. 35 minutes spent coordinating the discharge of this patient Time Spent with Patient Time spent providing/coordinating discharge services (# min): 35 Surgeries and Procedures Operation Date: 03/19/24 16:15 Actual Procedures p OR Debridement of Abdominal Wound(Not Applicable) - Troy Moya MD Discharge Plan Discharge Plan Patient Disposition: Home Health Services Activity: Ambulate as Tolerated Diet: Diabetic Additional Instructions: Home health nurse to manage care: Full code Routine vital signs BID dressing changes: *Dressing changes to right abdominal wound: Remove packing. Irrigate woundwith saline/Vashe, repackwith saline moistened Kerlix gauze roll and cover with dry dressings. Use non-sting skin prep underall tape. Patient allergic to adhesives causing blisters and sores. *Theraworx protect to clean scratches to right buttock and gluteal cleft from scratching and all skin folds redness Provide education and assist with home medication regimen Maintain and provide routine care to PICC line -- placed 03/23/24 Change dressing of PICC line Q7D Care to be managed by PCP Instructions: Peripherally-Inserted Central Catheter (DC), Hydrocodone and Acetaminophen, Know yourMeds Prescriptions: New meropenem 1 gram Recon Soln 1 g IV Q8H 21 Days Qty: 63 0RF hydrocodone-acetaminophen 5-325 mg Tablet 1 tab PO BID PRN (Reason: Pain) 5 Days Qty: 10 0RF Continued metoprolol tartrate 75 mg tablet 75 mg PO BID (DME) Omnipod Dash Pods (Gen 4) Cartridge SUBCUT magnesium 200 mg tablet 400 mg PO DAILY Trulicity 4.5 mg/0.5 mL pen injector 4.5 mg subcut QWEEK Patient Comments: Takes on Friday dupilumab 300 mg/2 mL pen injector 300 mg subcut Q2W Patient Comments: Takes on Friday with Trulicity vitamin E (dl, acetate) 180 mg (400 unit) capsule 1 cap PO DAILY budesonide-formoterol [Symbicort] 160-4.5 mcg/actuation HFA aerosol inhaler 2 puff inhalation BID albuterol sulfate [Ventolin HFA] 90 mcg/actuation HFA aerosol inhaler 2 puff inhalation Q4HR PRN (Reason: shortness of breath or wheezing) montelukast [Singulair] 10 mg tablet 1 tab PO DAILY zinc gluconate 50 mg tablet 1 tab PO DAILY triamcinolone acetonide 0.1 % ointment 1 applic topical DAILY PRN (Reason: skin irritation) pantoprazole [Protonix] 40 mg tablet,delayed release (DR/EC) 1 tab PO BID famotidine [Pepcid AC] 20 mg tablet 20 mg PO HS insulin regular hum U-500 conc 500 unit/mL solution 200 unit subcut Q3D PRN (Reason: Uses with omnipod) fexofenadine 180 mg tablet 1 tab PO HS albuterol sulfate 2.5 mg /3 mL (0.083 %) solution for nebulization 2.5 mg inhalation Q6-8H PRN (Reason: shortness of breath or wheezing) levothyroxine 175 mcg tablet 1 tab PO QAM fenofibrate 160 mg tablet 160 mg PO HS fluticasone propionate 50 mcg/actuation spray,suspension 2 spray intranasal DAILY docusate sodium 250 mg capsule 250 mg PO DAILY allopurinol 300 mg tablet 1 tab PO DAILY biotin 10 mg tablet 1 tab PO DAILY furosemide [Lasix] 40 mg tablet 40 mg PO BID cyclobenzaprine 10 mg tablet 10 mg PO QHS ferrous sulfate [Feosol] 325 mg (65 mg iron) tablet 325 mg PO DAILY Saccharomyces boulardii [Daily Probiotic (S. boulardii)] 250 mg capsule 250 mg PO BID krill oil 1,[id number] mg capsule 1 cap PO BID Childrens Fiber Gummy Bear 1.5 gram tablet,chewable 4 g PO QDAY ascorbic acid (vitamin C) 250 mg tablet 250 mg PO DAILY vitamin B complex Tablet 1 tab PO DAILY One Daily Multi-Vit w-Mineral 4.5 mg iron tablet 1 tab PO QDAY cinnamon bark [Cinnamon] 500 mg capsule 1,000 mg PO DAILY Discontinued pregabalin [Lyrica] 100 mg capsule 100 mg PO TID Patient Comments: Patient only takes brand Other Ambulatory Orders: Initiate Home Health (Routine) Timeframe: 1 Day Location: Determined by Patient Ordered By: Billy Nickerson Follow Up: [facility] [Outside] - 03/30/24 8:45 am () Ann Fournier NP-C [Primary Care Provider] - 03/29/24 2:15 pm Exam Physical Exam Vital Signs: Temp Pulse Resp BP Pulse Ox O2 Del Method O2 Flow Rate 98.1 F 67 17 113/73 94 L Room Air 6 03/24/24 08:00 03/24/24 08:00 03/24/24 08:00 03/24/24 08:00 03/24/24 08:00 03/24/24 08:00 03/23/24 09:32 Narrative: Constitutional: Well-appearing middle-aged WF, resting in bed in no acute distress HEENT: Mucous membranes, neck supple, no JVD Cardiovascular: RRR, no M/R/G, normal S1 and S2 Respiratory: Clear to auscultation bilaterally, no wheezes, rales or rhonchi GI: Soft, NTND, NABS. Dressing noted on the right lower quadrant : Deferred Extremities: No clubbing, cyanosis or edema Neuro: AAOx3, no focal deficits, strength 5/5 throughout Skin: Area of skin breakdown is covered in clean, dry and intact dressing Psych: Calm, cooperative and conversant Diagnostic Studies Completed and Pending Studies Labs on day of discharge: 03/24/24 11:28: POC Glucose 191 03/24/24 06:25: POC Glucose 245 03/24/24 06:21: Corrected WBC 6.7, Uncorrected WBC Count 6.7, RBC 3.49 L, Hgb 10.3 L, Hct 31.4 L, MCV 89.9, MCH 29.4, MCHC 32.7, RDW 14.9, Plt Count 283, MPV 9.3, Neut % (Auto) 56.7, Lymph % (Auto) 28.2, Jasper % (Auto) 7.2, Eos % (Auto) 7.0, Baso % (Auto) 0.9, Nucleat RBC Rel Count 0.1, Neut # (Auto) 3.8, Lymph # (Auto) 1.9, [place]asper # (Auto) 0.5, Eos # (Auto) 0.5 H, Baso # (Auto) 0.1, PHA Creatinine Clear 49.93, Sodium 138, Potassium 3.8, Chloride 99, Carbon Dioxide 29.9, Anion Gap 12.9, BUN 30 H, Creatinine 1.54 H, Est GFR (CKD-EPI) 39.628, Glucose 228 H, Calcium 8.8 03/24/24 02:03: POC Glucose 311 03/23/24 20:51: POC Glucose 346 03/23/24 16:03: POC Glucose 393 03/23/24 12:40: PT 15.1 H, INR 1.3 Documented By: Billy Nickerson MD 4 [id number] Signed By: <Electronically signed by Billy Nickerson MD> 03/24/24 [facility] Work Phone: 1(627) 672-532410-22-2024 Progress note Author Billy Nickerson [facility] March 23, 2024 6:55pmNote Date/TimeOct2023 6:52pm[place] [address] Hospitalist Progress Note Signed Patient: Mary Jane Suarez MR#: [id number] : 1970 Acct:[id number] Age/Sex: 53 / F Adm Date: 4 Loc: Room: [address] [place] [address] Type: ADM IN Attending Dr: Billy Nickerson MD Copies to: ~ Date of Service: 03/23/2024 Subjective Subjective Narrative: No acute events noted overnight. Patient afebrile and hemodynamically stable. No new complaints today Exam Physical Exam Vital Signs: Temp Pulse Resp BP Pulse Ox O2 Del Method O2 Flow Rate 97.9 F 82 18 116/70 94 L Room Air 6 03/23/24 15:59 03/23/24 15:59 03/23/24 15:59 03/23/24 15:59 03/23/24 15:59 03/23/24 15:59 03/23/24 09:32 Narrative: Constitutional: Well-appearing middle-aged WF, resting in bed in no acute distress HEENT: Mucous membranes, neck supple, no JVD Cardiovascular: RRR, no M/R/G, normal S1 and S2 Respiratory: Clear to auscultation bilaterally, no wheezes, rales or rhonchi GI: Soft, NTND, NABS. Dressing noted on the right lower quadrant : Deferred Extremities: No clubbing, cyanosis or edema Neuro: AAOx3, no focal deficits, strength 5/5 throughout Skin: Area of skin breakdown is covered in clean dry and intact dressing Psych: Calm, cooperative and conversant Objective Lab Results 03/23/24 07:23 03/23/24 07:23 Microbiology Results Microbiology 03/17/24 18:20 Blood - Left Antecubital Blood Culture - Final NO GROWTH 5 DAYS 03/17/24 17:43 Blood - Right Antecubital Blood Culture - Final NO GROWTH 5 DAYS Meds Allergies and Active Meds Allergies acetaminophen [Percocet] Allergy (Unknown, Verified 03/17/24 16:33) Unknown Reaction adhesive Allergy (Unknown, Verified 03/17/24 16:33) Rash aspirin Allergy (Unknown, Verified 03/17/24 16:33) Unknown Reaction azithromycin [Zithromax Z-Stalin] Allergy (Unknown, Verified 03/17/24 16:33) rash cefprozil [Cefzil] Allergy (Unknown, Verified 03/17/24 16:33) Unknown Reaction cephalexin Allergy (Unknown, Verified 03/17/24 16:33) Unknown Reaction Cephalosporins Allergy (Unknown, Verified 03/17/24 16:33) Hives ciprofloxacin Allergy (Unknown, Verified 03/17/24 16:33) Unknown moxifloxacin Allergy (Unknown, Verified 03/17/24 16:33) Hives oxycodone Allergy (Unknown, Verified 03/17/24 16:33) nausea penicillamine Allergy (Unknown, Verified 03/17/24 16:33) anaphylaxis Penicillins Allergy (Unknown, Verified 03/17/24 16:33) Unknown soy Allergy (Unknown, Verified 03/17/24 16:33) anaphylaxis sulfamethoxazole Allergy (Unknown, Verified 03/17/24 16:33) Anaphylaxis sulfanilamide Allergy (Unknown, Verified 03/17/24 16:33) Anaphylaxis trimethoprim Allergy (Unknown, Verified 03/17/24 16:33) Anaphylaxis BCise Allergy (Unknown, Uncoded 04/30/23 11:16) stomach upset Foam Tape Allergy (Unknown, Uncoded 10/09/23 14:20) Rash Active Meds: Active Medications Generic Name Dose Route Start Last Admin Trade Name Freq PRN Reason Stop Dose Admin Acetaminophen 1,000 mg 03/18/24 01:44 03/18/24 01:56 Acetaminophen 500 Mg Tablet PO 03/18/25 01:43 1,000 mg Q6H PRN Administration Fever or Pain Hydrocodone Bitart/Acetaminophen 1 tab 03/19/24 17:48 03/22/24 11:15 Hydrocodone/Acetaminophen 5-325 Mg Tablet PO 1 tab Q6H PRN Administration Pain Albuterol 2.5 mg 03/17/24 22:33 Albuterol Neb 2.5 Mg/3 Ml Vial.Neb INHALATION 03/17/25 22:32 Q6HR PRN shortness of breath or wheezing Albuterol 2 puff 03/17/24 22:33 Albuterol Hfa 60 Puff/8 Gram Inhaler INHALATION 03/17/25 22:32 Q4HR PRN shortness of breath or wheezing Allopurinol 300 mg 03/18/24 09:00 03/23/24 09:23 Allopurinol 300 Mg Tablet PO 03/18/25 08:59 300 mg DAILY JONATHAN Administration Ascorbic Acid 250 mg 03/18/24 09:00 03/23/24 09:23 Ascorbic Acid 500 Mg Tablet PO 03/18/25 08:59 250 mg DAILY JONATHAN Administration Budesonide/Formoterol Fumarate 2 puff 03/18/24 09:00 03/23/24 09:17 Budesonide/Formoterol 160-4.5 Mcg 60 Puff/6 Gm Hfa.Aer.Ad INHALATION 03/18/25 08:59 2 puff BID JONATHAN Administration Cyclobenzaprine HCl 10 mg 03/18/24 22:00 03/22/24 22:04 Cyclobenzaprine 10 Mg Tablet PO 03/18/25 21:59 10 mg QHS JONATHAN Administration Dextrose 15 gm 03/17/24 23:36 Dextrose 50% In Water 25 Gm/50 Ml Syringe IV-PUSH 03/17/25 23:35 TID.AC.HS.2A PRN Blood Glucose <120 mg/dL Dextrose 25 gm 03/17/24 23:36 Dextrose 50% In Water 25 Gm/50 Ml Syringe IV-PUSH 03/17/25 23:35 TID.AC.HS.2A PRN Blood Glucose <100 mg/dL Docusate Sodium 200 mg 03/18/24 09:00 03/23/24 09:23 Docusate 100 Mg Capsule PO 03/18/25 08:59 200 mg DAILY JONATHAN Administration Dupilumab 300 mg 03/21/24 09:00 03/21/24 08:37 Dupilumab 300 Mg/2 Ml Pen.Injctr SUBCUT 03/21/25 08:59 Not Given Q2W JONATHAN Famotidine 20 mg 03/18/24 22:00 03/22/24 22:03 Famotidine 20 Mg Tablet PO 03/18/25 21:59 20 mg HS JONATHAN Administration Fenofibrate 48 mg 03/23/24 22:00 Fenofibrate Nanocrystallized 48 Mg Tablet PO 03/23/25 21:59 HS JONATHAN Ferrous Sulfate 324 mg 03/18/24 09:00 03/23/24 09:23 Ferrous Sulfate 324 Mg Tablet.Dr PO 03/18/25 08:59 324 mg DAILY JONATHAN Administration Fluticasone Propionate 2 spray 03/18/24 09:00 03/23/24 09:23 Fluticasone Propionate [place] 120 [place]/16 Gm Bottle INTRANASAL 03/18/25 08:59 2 spray DAILY JONATHAN Administration Furosemide 40 mg 03/18/24 08:00 03/23/24 16:50 Furosemide 40 Mg Tablet PO 03/18/25 07:59 40 mg BID@0800,1600 JONATHAN Administration Glucose 30 gm 03/17/24 23:36 Dextrose 40% Gel 15 Gm Tube PO 03/17/25 23:35 TID.AC.HS.2A PRN Blood Glucose <100 mg/dL Glucose 15 gm 03/17/24 23:36 Dextrose 40% Gel 15 Gm Tube PO 03/17/25 23:35 TID.AC.HS.2A PRN Blood Glucose <120 mg/dL Heparin Sodium (Porcine) 5,000 unit 10/20/24 14:00 03/23/24 15:20 Heparin 5,000 Unit/Ml Vial SUBCUT 03/21/25 13:59 Not Given Q8HR JONATHAN Hydromorphone HCl 1 mg 03/19/24 17:48 03/22/24 18:42 Hydromorphone 1 Mg/Ml Syringe IV-PUSH 1 mg Q4H PRN Administration Pain Meropenem 1 gm in 100 mls @ 200 mls/hr 03/22/24 15:00 03/23/24 17:00 Merrem IV 200 mls/hr Q8H JONATHAN Administration Insulin Human Regular 0 unit 03/18/24 02:00 03/23/24 16:49 Insulin Regular U-500, Human 1,500 Unit/3 Ml Insuln.Pen SUBCUT 03/18/25 01:59 25 unit TID.AC.HS.2A JONATHAN Administration Protocol Levothyroxine Sodium 100 mcg 03/18/24 06:30 03/23/24 05:37 Levothyroxine 100 Mcg Tablet PO 03/18/25 06:29 100 mcg DAILY@0630 JONATHAN Administration Levothyroxine Sodium 75 mcg 03/18/24 06:30 03/23/24 05:37 Levothyroxine 75 Mcg Tablet PO 03/18/25 06:29 75 mcg DAILY@0630 JONATHAN Administration Loratadine 10 mg 03/18/24 22:00 03/22/24 22:04 Loratadine 10 Mg Tablet PO 03/18/25 21:59 10 mg HS JONATHAN Administration Metoprolol Tartrate 75 mg 03/18/24 09:00 03/23/24 09:23 Metoprolol Tartrate 25 Mg Tablet PO 03/18/25 08:59 75 mg BID JONATHAN Administration Montelukast Sodium 10 mg 03/18/24 22:00 03/22/24 22:03 Montelukast 10 Mg Tablet PO 03/18/25 21:59 10 mg HS JONATHAN Administration Multivitamins 1 tab 03/18/24 09:00 03/23/24 09:23 Multivitamin 1 Tab Tablet PO 03/18/25 08:59 1 tab DAILY JONATHAN Administration Trulicity ( 4.5 mg 03/21/24 09:00 03/21/24 08:37 Dulaglutide) 4.5 Mg/ SUBCUT 03/21/25 08:59 Not Given 0.5 Ml Pen Injector Morrison@0900 JONATHAN Pom- Insulin Regular 200 unit 03/17/24 22:33 Hum U-500 Conc 500 SUBCUT 03/17/25 22:32 Unit/Ml Solution) Q3D PRN Uses with omnipod Pantoprazole Sodium 40 mg 03/24/24 09:00 Pantoprazole 40 Mg Tablet.Dr PO 03/24/25 08:59 DAILY OJNATHAN Saccharomyces Boulardii 250 mg 03/18/24 09:00 03/23/24 09:24 Saccharomyces Boulardii 250 Mg Capsule PO 03/18/25 08:59 250 mg BID JONATHAN Administration Sodium Chloride 0 ml 03/17/24 16:32 03/19/24 15:08 Sodium Chloride 0.9 % 10 Ml Syringe IV-PUSH 03/17/25 16:31 10 ml PRN PRN Administration Flush Sodium Chloride 0 ml 03/22/24 10:06 Sodium Chloride 0.9 % 10 Ml Syringe IV-PUSH 03/22/25 10:05 PRN PRN Flush Tramadol HCl 50 mg 03/18/24 01:44 03/19/24 03:12 Tramadol 50 Mg Tablet PO 09/14/24 01:43 50 mg Q6H PRN Administration Pain Scale 6 - 10 Triamcinolone Acetonide 1 applic 03/18/24 00:58 Triamcinolone 0.1% Cream 15 Gm Tube TOPICAL 03/18/25 00:57 DAILY PRN skin irritation Vitamin B Complex/Vit C/Folic Acid 1 tab 03/18/24 09:00 03/23/24 09:23 Folic Acid/Vit Bcomp,C 1 Tab Tablet PO 03/18/25 08:59 1 tab DAILY JONATHAN Administration Zinc Gluconate 50 mg 03/18/24 09:00 03/23/24 09:23 Zinc Gluconate 50 Mg Tablet PO 03/18/25 08:59 50 mg DAILY JONATHAN Administration A&P - Hospitalist Assessment/Plan (1) Abscess: (2) Hyperlipidemia: (3) Type 2 diabetes mellitus with diabetic chronic kidney disease: (4) CKD (chronic kidney disease) stage 3, GFR 30-59 ml/min: (5) Hypoparathyroidism: (6) Hyperuricemia: (7) Multiple drug resistant organism (MDRO) culture positive: Plan Large Abdominal wall/skin Necrotic wound infection, growing Achromobacter Xylosoxidans Poor wound healing given morbid obesity and Immunocompromised state from pt's Type 2 Diabetes Rule out Calciphylaxis Normocytic Anemia, likely in the setting of chronic inflammation Clinically, is doing well overall. She remains afebrile and hemodynamically stable. -Culture of the tissue growing Achromobacter Xylosoxidans MDRO, following with ID regarding the antibiotic management -Antibiotic has been adjusted to IV meropenem per ID; patient to be discharged home tomorrow -ID recommendation appreciated -SCDs for DVT prophylaxis given her anemia, started heparin subcu today -Pantoprazole IV 40 mg daily for GI prophylaxis -PT eval -Ambulate as tolerated -Wound care following CODE STATUS: Full code Documented By: Billy Nickerson MD [id number] Signed By: <Electronically signed by Billy Nickerson MD> 03/23/24 1855 [facility] Work Phone: 1(995) 194-366910-22-2024 [facility] Progress note Author Billy Nickerson [facility] March 22, 2024 8:35pmNote Date/TimeOct2023 8:10pm[place] [address] Hospitalist Progress Note Signed Patient: Mary Jane Suraez MR#: [id number] : 1970 Acct:[id number] Age/Sex: 53 / F Adm Date: 4 Loc: Room: [address] [place] [address] Type: ADM IN Attending Dr: Billy Nickerson MD Copies to: ~ Date of Service: 03/22/2024 Subjective Subjective Narrative: No acute events noted overnight. Patient is resting comfortably on my assessment. She is anticipating PICC line placement and discharge when it is feasible. Exam Physical Exam Vital Signs: Temp Pulse Resp BP Pulse Ox O2 Del Method O2 Flow Rate 98 F 74 18 110/74 94 L Room Air 6 03/22/24 20:02 03/22/24 20:02 03/22/24 20:02 03/22/24 20:02 03/22/24 20:02 03/22/24 20:02 03/19/24 17:50 Narrative: Constitutional: Well-appearing middle-aged WF, resting in bed in no acute distress HEENT: Mucous membranes, neck supple, no JVD Cardiovascular: RRR, no M/R/G, normal S1 and S2 Respiratory: Clear to auscultation bilaterally, no wheezes, rales or rhonchi GI: Soft, NTND, NABS. Dressing noted on the right lower quadrant : Deferred Extremities: No clubbing, cyanosis or edema Neuro: AAOx3, no focal deficits, strength 5/5 throughout Skin: Area of skin breakdown is covered in clean dry and intact dressing Psych: Calm, cooperative and conversant Objective Lab Results 03/22/24 06:32 03/22/24 06:32 Microbiology Results Microbiology 03/17/24 18:20 Blood - Left Antecubital Blood Culture - Final NO GROWTH 5 DAYS 03/17/24 17:43 Blood - Right Antecubital Blood Culture - Final NO GROWTH 5 DAYS 03/19/24 17:34 Abdomen - Tissue Aerobic Culture - Final Achromobacter xylosoxidan MDRO 03/19/24 17:34 Abdomen - Tissue Anaerobic Culture - Final No Anaerobes Isolated 3 Days 03/19/24 17:34 Abdomen - Tissue Gram Stain - Final Meds Allergies and Active Meds Allergies acetaminophen [Percocet] Allergy (Unknown, Verified 03/17/24 16:33) Unknown Reaction adhesive Allergy (Unknown, Verified 03/17/24 16:33) Rash aspirin Allergy (Unknown, Verified 03/17/24 16:33) Unknown Reaction azithromycin [Zithromax Z-Stalin] Allergy (Unknown, Verified 03/17/24 16:33) rash cefprozil [Cefzil] Allergy (Unknown, Verified 03/17/24 16:33) Unknown Reaction cephalexin Allergy (Unknown, Verified 03/17/24 16:33) Unknown Reaction Cephalosporins Allergy (Unknown, Verified 03/17/24 16:33) Hives ciprofloxacin Allergy (Unknown, Verified 03/17/24 16:33) Unknown moxifloxacin Allergy (Unknown, Verified 03/17/24 16:33) Hives oxycodone Allergy (Unknown, Verified 03/17/24 16:33) nausea penicillamine Allergy (Unknown, Verified 03/17/24 16:33) anaphylaxis Penicillins Allergy (Unknown, Verified 03/17/24 16:33) Unknown soy Allergy (Unknown, Verified 03/17/24 16:33) anaphylaxis sulfamethoxazole Allergy (Unknown, Verified 03/17/24 16:33) Anaphylaxis sulfanilamide Allergy (Unknown, Verified 03/17/24 16:33) Anaphylaxis trimethoprim Allergy (Unknown, Verified 03/17/24 16:33) Anaphylaxis BCise Allergy (Unknown, Uncoded 04/30/23 11:16) stomach upset Foam Tape Allergy (Unknown, Uncoded 10/09/23 14:20) Rash Active Meds: Active Medications Generic Name Dose Route Start Last Admin Trade Name Freq PRN Reason Stop Dose Admin Acetaminophen 1,000 mg 03/18/24 01:44 03/18/24 01:56 Acetaminophen 500 Mg Tablet PO 03/18/25 01:43 1,000 mg Q6H PRN Administration Fever or Pain Hydrocodone Bitart/Acetaminophen 1 tab 03/19/24 17:48 03/22/24 11:15 Hydrocodone/Acetaminophen 5-325 Mg Tablet PO 1 tab Q6H PRN Administration Pain Albuterol 2.5 mg 03/17/24 22:33 Albuterol Neb 2.5 Mg/3 Ml Vial.Neb INHALATION 03/17/25 22:32 Q6HR PRN shortness of breath or wheezing Albuterol 2 puff 03/17/24 22:33 Albuterol Hfa 60 Puff/8 Gram Inhaler INHALATION 03/17/25 22:32 Q4HR PRN shortness of breath or wheezing Allopurinol 300 mg 03/18/24 09:00 03/22/24 09:28 Allopurinol 300 Mg Tablet PO 03/18/25 08:59 300 mg DAILY JONATHAN Administration Ascorbic Acid 250 mg 03/18/24 09:00 03/22/24 09:28 Ascorbic Acid 500 Mg Tablet PO 03/18/25 08:59 250 mg DAILY JONATHAN Administration Budesonide/Formoterol Fumarate 2 puff 03/18/24 09:00 03/22/24 08:19 Budesonide/Formoterol 160-4.5 Mcg 60 Puff/6 Gm Hfa.Aer.Ad INHALATION 03/18/25 08:59 2 puff BID JONATHAN Administration Cyclobenzaprine HCl 10 mg 03/18/24 22:00 03/21/24 21:47 Cyclobenzaprine 10 Mg Tablet PO 03/18/25 21:59 10 mg QHS JONATHAN Administration Dextrose 15 gm 03/17/24 23:36 Dextrose 50% In Water 25 Gm/50 Ml Syringe IV-PUSH 03/17/25 23:35 TID.AC.HS.2A PRN Blood Glucose <120 mg/dL Dextrose 25 gm 03/17/24 23:36 Dextrose 50% In Water 25 Gm/50 Ml Syringe IV-PUSH 03/17/25 23:35 TID.AC.HS.2A PRN Blood Glucose <100 mg/dL Docusate Sodium 200 mg 03/18/24 09:00 03/22/24 09:28 Docusate 100 Mg Capsule PO 03/18/25 08:59 200 mg DAILY JONATHAN Administration Dupilumab 300 mg 03/21/24 09:00 03/21/24 08:37 Dupilumab 300 Mg/2 Ml Pen.Injctr SUBCUT 03/21/25 08:59 Not Given Q2W JONATHAN Famotidine 20 mg 03/18/24 22:00 03/21/24 21:47 Famotidine 20 Mg Tablet PO 03/18/25 21:59 20 mg HS JONATHAN Administration Fenofibrate 145 mg 03/18/24 22:00 03/21/24 21:47 Fenofibrate Nanocrystallized 145 Mg Tablet PO 03/18/25 21:59 145 mg HS JONATHAN Administration Ferrous Sulfate 324 mg 03/18/24 09:00 03/22/24 09:28 Ferrous Sulfate 324 Mg Tablet.Dr PO 03/18/25 08:59 324 mg DAILY JONATHAN Administration Fluticasone Propionate 2 spray 03/18/24 09:00 03/22/24 09:29 Fluticasone Propionate [place] 120 [place]/16 Gm Bottle INTRANASAL 03/18/25 08:59 2 spray DAILY JONATHAN Administration Furosemide 40 mg 03/18/24 08:00 03/22/24 15:04 Furosemide 40 Mg Tablet PO 03/18/25 07:59 40 mg BID@0800,1600 JONATHAN Administration Glucose 30 gm 03/17/24 23:36 Dextrose 40% Gel 15 Gm Tube PO 03/17/25 23:35 TID.AC.HS.2A PRN Blood Glucose <100 mg/dL Glucose 15 gm 03/17/24 23:36 Dextrose 40% Gel 15 Gm Tube PO 03/17/25 23:35 TID.AC.HS.2A PRN Blood Glucose <120 mg/dL Heparin Sodium (Porcine) 5,000 unit 03/21/24 14:00 03/22/24 15:07 Heparin 5,000 Unit/Ml Vial SUBCUT 03/21/25 13:59 Not Given Q8HR JONATHAN Hydromorphone HCl 1 mg 03/19/24 17:48 03/22/24 18:42 Hydromorphone 1 Mg/Ml Syringe IV-PUSH 1 mg Q4H PRN Administration Pain Meropenem 1 gm in 100 mls @ 200 mls/hr 03/22/24 15:00 03/22/24 15:04 Merrem IV 200 mls/hr Q8H JONATHAN Administration Insulin Human Regular 0 unit 03/18/24 02:00 03/22/24 16:48 Insulin Regular U-500, Human 1,500 Unit/3 Ml Insuln.Pen SUBCUT 03/18/25 01:59 20 unit TID.AC.HS.2A JONATHAN Administration Protocol Levothyroxine Sodium 100 mcg 03/18/24 06:30 03/22/24 05:43 Levothyroxine 100 Mcg Tablet PO 03/18/25 06:29 100 mcg DAILY@0630 JONATHAN Administration Levothyroxine Sodium 75 mcg 03/18/24 06:30 03/22/24 05:43 Levothyroxine 75 Mcg Tablet PO 03/18/25 06:29 75 mcg DAILY@0630 JONATHAN Administration Loratadine 10 mg 03/18/24 22:00 03/21/24 21:47 Loratadine 10 Mg Tablet PO 03/18/25 21:59 10 mg HS JONATHAN Administration Metoprolol Tartrate 75 mg 03/18/24 09:00 03/22/24 09:27 Metoprolol Tartrate 25 Mg Tablet PO 03/18/25 08:59 75 mg BID JONATHAN Administration Montelukast Sodium 10 mg 03/18/24 22:00 03/21/24 21:48 Montelukast 10 Mg Tablet PO 03/18/25 21:59 10 mg HS JONATHAN Administration Multivitamins 1 tab 03/18/24 09:00 03/22/24 09:28 Multivitamin 1 Tab Tablet PO 03/18/25 08:59 1 tab DAILY JONATHAN Administration Trulicity ( 4.5 mg 03/21/24 09:00 03/21/24 08:37 Dulaglutide) 4.5 Mg/ SUBCUT 03/21/25 08:59 Not Given 0.5 Ml Pen Injector Morrison@0900 JONATHAN Pom- Insulin Regular 200 unit 03/17/24 22:33 Hum U-500 Conc 500 SUBCUT 03/17/25 22:32 Unit/Ml Solution) Q3D PRN Uses with omnipod Pantoprazole Sodium 40 mg 03/18/24 09:00 03/22/24 09:29 Pantoprazole 40 Mg Vial IV-PUSH 03/18/25 08:59 40 mg DAILY JONATHAN Administration Saccharomyces Boulardii 250 mg 03/18/24 09:00 03/22/24 09:28 Saccharomyces Boulardii 250 Mg Capsule PO 03/18/25 08:59 250 mg BID JONATHAN Administration Sodium Chloride 0 ml 03/17/24 16:32 03/19/24 15:08 Sodium Chloride 0.9 % 10 Ml Syringe IV-PUSH 03/17/25 16:31 10 ml PRN PRN Administration Flush Sodium Chloride 10 ml 03/17/24 20:08 03/21/24 08:32 Sodium Chloride 0.9 % 10 Ml Vial.Pf INJECTION 03/17/25 20:07 10 ml PRN PRN Administration Dilution Sodium Chloride 10 ml 03/17/24 20:08 Sodium Chloride 0.9 % 10 Ml Syringe IV-PUSH 03/17/25 20:07 PRN PRN Flush Sodium Chloride 0 ml 03/22/24 10:06 Sodium Chloride 0.9 % 10 Ml Syringe IV-PUSH 03/22/25 10:05 PRN PRN Flush Tramadol HCl 50 mg 03/18/24 01:44 03/19/24 03:12 Tramadol 50 Mg Tablet PO 09/14/24 01:43 50 mg Q6H PRN Administration Pain Scale 6 - 10 Triamcinolone Acetonide 1 applic 03/18/24 00:58 Triamcinolone 0.1% Cream 15 Gm Tube TOPICAL 03/18/25 00:57 DAILY PRN skin irritation Vitamin B Complex/Vit C/Folic Acid 1 tab 03/18/24 09:00 03/22/24 09:28 Folic Acid/Vit Bcomp,C 1 Tab Tablet PO 03/18/25 08:59 1 tab DAILY JONATHAN Administration Zinc Gluconate 50 mg 03/18/24 09:00 03/22/24 09:27 Zinc Gluconate 50 Mg Tablet PO 03/18/25 08:59 50 mg DAILY JONATHAN Administration A&P - Hospitalist Assessment/Plan (1) Abscess: (2) Hyperlipidemia: (3) Type 2 diabetes mellitus with diabetic chronic kidney disease: (4) CKD (chronic kidney disease) stage 3, GFR 30-59 ml/min: (5) Hypoparathyroidism: (6) Hyperuricemia: (7) Multiple drug resistant organism (MDRO) culture positive: Plan Large Abdominal wall/skin Necrotic wound infection, growing Achromobacter Xylosoxidans Poor wound healing given morbid obesity and Immunocompromised state from pt's Type 2 Diabetes Rule out Calciphylaxis Normocytic Anemia, likely in the setting of chronic inflammation Clinically, is doing well overall. She remains afebrile and hemodynamically stable. -Patient underwent biopsy and debridement of her right lower abdomen open wound -Culture of the tissue growing Achromobacter Xylosoxidans MDRO, following with ID regarding the antibiotic management -Antibiotic has been adjusted to IV meropenem per ID -ID recommendation appreciated -SCDs for DVT prophylaxis given her anemia, started heparin subcu today -Pantoprazole IV 40 mg daily for GI prophylaxis -PT eval -Ambulate as tolerated -Wound care following Documented By: Billy Nickerson MD 2007 Signed By: <Electronically signed by Billy Nickerson MD> 03/22/242034 [facility] Work Phone: 1(673) 462-450510-21-2024 Progress note Author Antonio Jenkins [facility] March 22, 2024 10:10amNote Date/TimeOct2023 10:11[place] [address] Infect. Disease Progress Note Signed Patient: Mary Jane Suarez MR#: [id number] : 1970 Acct:[id number] Age/Sex: 53 / F Adm Date: 4 Loc: 3T Room: [address] [place] [address] Type: ADM IN Attending Dr: Audra Wheat MD Copies to: ~ Date of Service: 03/22/2024 Subjective Interval history: Patient overall doing okay today but having discomfort in the right lower quadrant where her abdominal wound is present. Dressing intact. Exam Physical Exam Vital Signs: Temp Pulse Resp BP Pulse Ox O2 Del Method O2 Flow Rate 97.5 F L 72 18 125/74 95 Room Air 6 03/22/24 09:26 03/22/24 09:26 03/22/24 09:26 03/22/24 09:26 03/22/24 09:26 03/22/24 09:26 03/19/24 17:50 Const General: comfortable and no acute distress HEENT Ears: hearing grossly normal bilaterally Nose: external nose normal Face and sinus: normal facial exam Teeth and gingiva: dentition normal Throat: posterior oropharynx normal Eyes General: appearance normal, both eyes and all related structures Neck Neck: normal visual inspection Chest Chest palpation & inspection: normal inspection of the chest Resp Effort & Inspection: normal respiratory effort Auscultation: clear to auscultation bilaterally Cardio Rate: regular rate GI Inspection: abnormal to inspection and obesity Skin General: rashes and/or lesions noted Other: Abd wound with dressing intact Neuro General: patient oriented x3 Extrem General: normal to inspection Objective Labs CBC/BMP: CBC, BMP 03/22/24 06:32 Corrected WBC 5.9 Uncorrected WBC Count 5.9 RBC 3.34 L Hgb 10.0 L Hct 30.2 L Plt Count 243 Sodium 137 Potassium 3.6 Chloride 100 Carbon Dioxide 28.8 Anion Gap 11.8 BUN 19 Creatinine 1.29 H Calcium 8.5 L Labs: 03/22/24 06:32 BUN 19 Creatinine 1.29 H Microbiology Microbiology: Microbiology - Results from entire visit 03/19/24 17:34 Abdomen - Tissue Aerobic Culture - Final Achromobacter xylosoxidan MDRO 03/19/24 17:34 Abdomen - Tissue Anaerobic Culture - Preliminary No Anaerobes Isolated 2 Days 03/19/24 17:34 Abdomen - Tissue Gram Stain - Final 03/17/24 18:20 Blood - Left Antecubital Blood Culture - Preliminary No Growth 4 Days 03/17/24 17:43 Blood - Right Antecubital Blood Culture - Preliminary No Growth 4 Days 03/17/24 20:11 Abdomen - Right Lower Superficial Wound Culture - Final Achromobacter xylosoxidan MDRO 03/18/24 09:45 Abdomen - Drainage Superficial Wound Culture - Final Achromobacter xylosoxidan MDRO Allergies and Medications Allergies and Active Meds Allergies acetaminophen [Percocet] Allergy (Unknown, Verified 03/17/24 16:33) Unknown Reaction adhesive Allergy (Unknown, Verified 03/17/24 16:33) Rash aspirin Allergy (Unknown, Verified 03/17/24 16:33) Unknown Reaction azithromycin [Zithromax Z-Stalin] Allergy (Unknown, Verified 03/17/24 16:33) rash cefprozil [Cefzil] Allergy (Unknown, Verified 03/17/24 16:33) Unknown Reaction cephalexin Allergy (Unknown, Verified 03/17/24 16:33) Unknown Reaction Cephalosporins Allergy (Unknown, Verified 03/17/24 16:33) Hives ciprofloxacin Allergy (Unknown, Verified 03/17/24 16:33) Unknown moxifloxacin Allergy (Unknown, Verified 03/17/24 16:33) Hives oxycodone Allergy (Unknown, Verified 03/17/24 16:33) nausea penicillamine Allergy (Unknown, Verified 03/17/24 16:33) anaphylaxis Penicillins Allergy (Unknown, Verified 03/17/24 16:33) Unknown soy Allergy (Unknown, Verified 03/17/24 16:33) anaphylaxis sulfamethoxazole Allergy (Unknown, Verified 03/17/24 16:33) Anaphylaxis sulfanilamide Allergy (Unknown, Verified 03/17/24 16:33) Anaphylaxis trimethoprim Allergy (Unknown, Verified 03/17/24 16:33) Anaphylaxis BCise Allergy (Unknown, Uncoded 04/30/23 11:16) stomach upset Foam Tape Allergy (Unknown, Uncoded 10/09/23 14:20) Rash Active Medications Acetaminophen (Acetaminophen 500 Mg Tablet) 1,000 mg PO Q6H PRN PRN Reason: Fever or Pain Stop: 03/18/25 01:43 Last Admin: 03/18/24 01:56 Dose: 1,000 mg Hydrocodone Bitart/Acetaminophen (Hydrocodone/Acetaminophen 5-325 Mg Tablet) 1 tab PO Q6H PRN PRN Reason: Pain Last Admin: 03/20/24 11:51 Dose: 1 tab Albuterol (Albuterol Neb 2.5 Mg/3 Ml Vial.Neb) 2.5 mg INHALATION Q6HR PRN PRN Reason: shortness of breath or wheezing Stop: 03/17/25 22:32 Albuterol (Albuterol Hfa 60 Puff/8 Gram Inhaler) 2 puff INHALATION Q4HR PRN PRN Reason: shortness of breath or wheezing Stop: 03/17/25 22:32 Allopurinol (Allopurinol 300 Mg Tablet) 300 mg PO DAILY [facility] Stop: 03/18/25 08:59 Last Admin: 03/22/24 09:28 Dose: 300 mg Ascorbic Acid (Ascorbic Acid 500 Mg Tablet) 250 mg PO DAILY JONATHAN Stop: 03/18/25 08:59 Last Admin: 03/22/24 09:28 Dose: 250 mg Budesonide/Formoterol Fumarate (Budesonide/Formoterol 160-4.5 Mcg 60 Puff/6 Gm Hfa.Aer.Ad) 2 puff INHALATION BID JONATHAN Stop: 03/18/25 08:59 Last Admin: 03/22/24 08:19 Dose: 2 puff Cyclobenzaprine HCl (Cyclobenzaprine 10 Mg Tablet) 10 mg PO QHS JONATHAN Stop: 03/18/25 21:59 Last Admin: 03/21/24 21:47 Dose: 10 mg Dextrose (Dextrose 50% In Water 25 Gm/50 Ml Syringe) 15 gm IV-PUSH TID.AC.HS.2A PRN PRN Reason: Blood Glucose <120 mg/dL Stop: 03/17/25 23:35 Dextrose (Dextrose 50% In Water 25 Gm/50 Ml Syringe) 25 gm IV-PUSH TID.AC.HS.2A PRN PRN Reason: Blood Glucose <100 mg/dL Stop: 03/17/25 23:35 Docusate Sodium (Docusate 100 Mg Capsule) 200 mg PO DAILY [facility] Stop: 03/18/25 08:59 Last Admin: 03/22/24 09:28 Dose: 200 mg Dupilumab (Dupilumab 300 Mg/2 Ml Pen.Injctr) 300 mg SUBCUT Q2W JONATHAN Stop: 03/21/25 08:59 Last Admin: 03/21/24 08:37 Dose: Not Given Famotidine (Famotidine 20 Mg Tablet) 20 mg PO [facility] Stop: 03/18/25 21:59 Last Admin: 03/21/24 21:47 Dose: 20 mg Fenofibrate (Fenofibrate Nanocrystallized 145 Mg Tablet) 145 mg PO [facility] Stop: 03/18/25 21:59 Last Admin: 03/21/24 21:47 Dose: 145 mg Ferrous Sulfate (Ferrous Sulfate 324 Mg Tablet.Dr) 324 mg PO DAILY [facility] Stop: 03/18/25 08:59 Last Admin: 03/22/24 09:28 Dose: 324 mg Fluticasone Propionate (Fluticasone Propionate [place] 120 [place]/16 Gm Bottle) 2 spray INTRANASAL DAILY [facility] Stop: 03/18/25 08:59 Last Admin: 03/22/24 09:29 Dose: 2 spray Furosemide (Furosemide 40 Mg Tablet) 40 mg PO BID@0800,1600 [facility] Stop: 03/18/25 07:59 Last Admin: 03/22/24 09:28 Dose: 40 mg Glucose (Dextrose 40% Gel 15 Gm Tube) 30 gm PO TID.AC.HS.2A PRN PRN Reason: Blood Glucose <100 mg/dL Stop: 03/17/25 23:35 Glucose (Dextrose 40% Gel 15 Gm Tube) 15 gm PO TID.AC.HS.2A PRN PRN Reason: Blood Glucose <120 mg/dL Stop: 03/17/25 23:35 Heparin Sodium (Porcine) (Heparin 5,000 Unit/Ml Vial) 5,000 unit SUBCUT Q8HR [facility] Stop: 03/21/25 13:59 Last Admin: 03/22/24 05:44 Dose: Not Given Hydromorphone HCl (Hydromorphone 1 Mg/Ml Syringe) 1 mg IV-PUSH Q4H PRN PRN Reason: Pain Last Admin: 03/22/24 05:14 Dose: 1 mg Piperacillin Sod/Tazobactam Sod (Zosyn) 3.375 gm in 100 mls @ 200 mls/hr IV Q6H [facility] Last Admin: 03/22/24 09:28 Dose: 200 mls/hr Insulin Human Regular (Insulin Regular U-500, Human 1,500 Unit/3 Ml Insuln.Pen) 0 unit SUBCUT TID.AC.HS.2A [facility]; Protocol Stop: 03/18/25 01:59 Last Admin: 03/22/24 09:27 Dose: 15 unit Levothyroxine Sodium (Levothyroxine 100 Mcg Tablet) 100 mcg PO DAILY@0630 [facility] Stop: 03/18/25 06:29 Last Admin: 03/22/24 05:43 Dose: 100 mcg Levothyroxine Sodium (Levothyroxine 75 Mcg Tablet) 75 mcg PO DAILY@0630 [facility] Stop: 03/18/25 06:29 Last Admin: 03/22/24 05:43 Dose: 75 mcg Loratadine (Loratadine 10 Mg Tablet) 10 mg PO HS JONATHAN Stop: 03/18/25 21:59 Last Admin: 03/21/24 21:47 Dose: 10 mg Metoprolol Tartrate (Metoprolol Tartrate 25 Mg Tablet) 75 mg PO BID JONATHAN Stop: 03/18/25 08:59 Last Admin: 03/22/24 09:27 Dose: 75 mg Montelukast Sodium (Montelukast 10 Mg Tablet) 10 mg PO HS JONATHAN Stop: 03/18/25 21:59 Last Admin: 03/21/24 21:48 Dose: 10 mg Multivitamins (Multivitamin 1 Tab Tablet) 1 tab PO DAILY JONATHAN Stop: 03/18/25 08:59 Last Admin: 03/22/24 09:28 Dose: 1 tab Trulicity ( Dulaglutide) 4.5 Mg/0.5 Ml Pen Injector 4.5 mg SUBCUT Morrison@0900 [facility] Stop: 03/21/25 08:59 Last Admin: 03/21/24 08:37 Dose: Not Given Pom- Insulin Regular Hum U-500 Conc 500 Unit/Ml Solution) 200 unit SUBCUT Q3D PRN PRN Reason: Uses with omnipod Stop: 03/17/25 22:32 Pantoprazole Sodium (Pantoprazole 40 Mg Vial) 40 mg IV-PUSH DAILY JONATHAN Stop: 03/18/25 08:59 Last Admin: 03/22/24 09:29 Dose: 40 mg Saccharomyces Boulardii (Saccharomyces Boulardii 250 Mg Capsule) 250 mg PO BID JONATHAN Stop: 03/18/25 08:59 Last Admin: 03/22/24 09:28 Dose: 250 mg Sodium Chloride (Sodium Chloride 0.9 % 10 Ml Syringe) 0 ml IV-PUSH PRN PRN PRN Reason: Flush Stop: 03/17/25 16:31 Last Admin: 03/19/24 15:08 Dose: 10 ml Sodium Chloride (Sodium Chloride 0.9 % 10 Ml Vial.Pf) 10 ml INJECTION PRN PRN PRN Reason: Dilution Stop: 03/17/25 20:07 Last Admin: 03/21/24 08:32 Dose: 10 ml Sodium Chloride (Sodium Chloride 0.9 % 10 Ml Syringe) 10 ml IV-PUSH PRN PRN PRN Reason: Flush Stop: 03/17/25 20:07 Tramadol HCl (Tramadol 50 Mg Tablet) 50 mg PO Q6H PRN PRN Reason: Pain Scale 6 - 10 Stop: 09/14/24 01:43 Last Admin: 03/19/24 03:12 Dose: 50 mg Triamcinolone Acetonide (Triamcinolone 0.1% Cream 15 Gm Tube) 1 applic TOPICAL DAILY PRN PRN Reason: skin irritation Stop: 03/18/25 00:57 Vitamin B Complex/Vit C/Folic Acid (Folic Acid/Vit Bcomp,C 1 Tab Tablet) 1 tab PO DAILY JONATHAN Stop: 03/18/25 08:59 Last Admin: 03/22/24 09:28 Dose: 1 tab Zinc Gluconate (Zinc Gluconate 50 Mg Tablet) 50 mg PO DAILY JONATHAN Stop: 03/18/25 08:59 Last Admin: 03/22/24 09:27 Dose: 50 mg A&P - Infectious Disease Assessment/Plan (1) Chronic abdominal wound infection: Qualifiers: Encounter type: initial encounter Qualified Code(s): S31.109A - Unspecified open wound of abdominalwall, unspecified quadrant without penetration into peritoneal cavity, initial encounter; L08.9 - Local infection of the skin and subcutaneous tissue, unspecified (2) Type 2 diabetes mellitus with diabetic chronic kidney disease: Plan Debridement was done. Cultures with Achromobacter. This is an MDRO. Patient is currently on Zosyn for which it is sensitive to. Ironically she has a penicillin unknown allergy and but she seems to betolerating this quite well. Though it is not reported meropenem and trimethoprim sulfa do show thisorganism is susceptible to these agents. Will need IV antibiotics given patient's anaphylaxis listed to sulfa. Will either need to continue on Zosyn or switch to meropenem for discharge. Will place PICC line. Documented By: Antonio Jenkins MD 03/22/24 1007 Signed By: <Electronically signed by MD Antonio Jenkins> 03/22/24 1010 [facility] Work Phone: 1(503) 690-373810-21-2024 Progress note Author Audra Wheat [facility] March 21, 2024 10:57pmNote Date/TimeOctober 2023 11:25[place] [address] Hospitalist Progress Note Signed Patient: Mary Jane Suarez MR#: [id number] : 1970 Acct:[id number] Age/Sex: 53 / F Adm Date: 4 Loc: Room: [address] [place] [address] Type: ADM IN Attending Dr: Audra Wheat MD Copies to: ~ Date of Service: 03/21/2024 Subjective Subjective Narrative: Patient seen examined bedside. No events overnight. Not in acute distress. Cultures are pending. Will follow-up with ID tomorrow regarding the direction of p.o. antibiotics on discharge or need for IV. Labs reviewed and magnesium corrected. Exam Physical Exam Vital Signs: Temp Pulse Resp BP Pulse Ox O2 Del Method O2 Flow Rate 97.4 F L 78 16 123/69 99 Room Air 6 03/21/24 08:00 03/21/24 08:00 03/21/24 08:00 03/21/24 08:00 03/21/24 08:00 03/21/24 08:00 03/19/24 17:50 Narrative: General: Appears comfortable and not in distress, lying in bed, cooperative, calm, and pleasant, morbidly obese HEENT: No thyromegaly, no lymphadenopathy, EOMI, PERRLA, neck is supple Heart: normal S1 and S2, no murmurs, regular normal rate Lung: Bilateral air entry, no wheezing or crackles, pt is not in any respiratorydistress Abdomen/Skin : Soft, positive bowel sounds, her wound is packed, no erythema or discharge from it. 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 WORK[employer]: Awake,Alert, following simple command, no focal sensory or motor deficits Psychiatric: Cooperative, normal mood and affect Objective Lab Results 03/21/24 06:38 03/21/24 06:38 Microbiology Results Microbiology 03/19/24 17:34 Abdomen - Tissue Aerobic Culture - Preliminary Gram Negative Bacilli 03/19/24 17:34 Abdomen - Tissue Anaerobic Culture - Preliminary No Anaerobes Isolated 2 Days 03/19/24 17:34 Abdomen - Tissue Gram Stain - Final 03/17/24 18:20 Blood - Left Antecubital Blood Culture - Preliminary No Growth 3 Days 03/17/24 17:43 Blood - Right Antecubital Blood Culture - Preliminary No Growth 3 Days 03/17/24 20:11 Abdomen - Right Lower Superficial Wound Culture - Final Achromobacter xylosoxidan MDRO 03/18/24 09:45 Abdomen - Drainage Superficial Wound Culture - Final Achromobacter xylosoxidan MDRO Meds Allergies and Active Meds Allergies acetaminophen [Percocet] Allergy (Unknown, Verified 03/17/24 16:33) Unknown Reaction adhesive Allergy (Unknown, Verified 03/17/24 16:33) Rash aspirin Allergy (Unknown, Verified 03/17/24 16:33) Unknown Reaction azithromycin [Zithromax Z-Stalin] Allergy (Unknown, Verified 03/17/24 16:33) rash cefprozil [Cefzil] Allergy (Unknown, Verified 03/17/24 16:33) Unknown Reaction cephalexin Allergy (Unknown, Verified 03/17/24 16:33) Unknown Reaction Cephalosporins Allergy (Unknown, Verified 03/17/24 16:33) Hives ciprofloxacin Allergy (Unknown, Verified 03/17/24 16:33) Unknown moxifloxacin Allergy (Unknown, Verified 03/17/24 16:33) Hives oxycodone Allergy (Unknown, Verified 03/17/24 16:33) nausea penicillamine Allergy (Unknown, Verified 03/17/24 16:33) anaphylaxis Penicillins Allergy (Unknown, Verified 03/17/24 16:33) Unknown soy Allergy (Unknown, Verified 03/17/24 16:33) anaphylaxis sulfamethoxazole Allergy (Unknown, Verified 03/17/24 16:33) Anaphylaxis sulfanilamide Allergy (Unknown, Verified 03/17/24 16:33) Anaphylaxis trimethoprim Allergy (Unknown, Verified 03/17/24 16:33) Anaphylaxis BCise Allergy (Unknown, Uncoded 04/30/23 11:16) stomach upset Foam Tape Allergy (Unknown, Uncoded 10/09/23 14:20) Rash Active Meds: Active Medications Generic Name Dose Route Start Last Admin Trade Name Freq PRN Reason Stop Dose Admin Acetaminophen 1,000 mg 03/18/24 01:44 03/18/24 01:56 Acetaminophen 500 Mg Tablet PO 03/18/25 01:43 1,000 mg Q6H PRN Administration Fever or Pain Hydrocodone Bitart/Acetaminophen 1 tab 03/19/24 17:48 03/20/24 11:51 Hydrocodone/Acetaminophen 5-325 Mg Tablet PO 1 tab Q6H PRN Administration Pain Albuterol 2.5 mg 03/17/24 22:33 Albuterol Neb 2.5 Mg/3 Ml Vial.Neb INHALATION 03/17/25 22:32 Q6HR PRN shortness of breath or wheezing Albuterol 2 puff 03/17/24 22:33 Albuterol Hfa 60 Puff/8 Gram Inhaler INHALATION 03/17/25 22:32 Q4HR PRN shortness of breath or wheezing Allopurinol 300 mg 03/18/24 09:00 03/21/24 08:33 Allopurinol 300 Mg Tablet PO 03/18/25 08:59 300 mg DAILY JONATHAN Administration Ascorbic Acid 250 mg 03/18/24 09:00 03/21/24 08:33 Ascorbic Acid 500 Mg Tablet PO 03/18/25 08:59 250 mg DAILY JONATHAN Administration Budesonide/Formoterol Fumarate 2 puff 03/18/24 09:00 03/21/24 08:49 Budesonide/Formoterol 160-4.5 Mcg 60 Puff/6 Gm Hfa.Aer.Ad INHALATION 03/18/25 08:59 2 puff BID JONATHAN Administration Cyclobenzaprine HCl 10 mg 03/18/24 22:00 03/20/24 21:52 Cyclobenzaprine 10 Mg Tablet PO 03/18/25 21:59 10 mg QHS JONATHAN Administration Dextrose 15 gm 03/17/24 23:36 Dextrose 50% In Water 25 Gm/50 Ml Syringe IV-PUSH 03/17/25 23:35 TID.AC.HS.2A PRN Blood Glucose <120 mg/dL Dextrose 25 gm 03/17/24 23:36 Dextrose 50% In Water 25 Gm/50 Ml Syringe IV-PUSH 03/17/25 23:35 TID.AC.HS.2A PRN Blood Glucose <100 mg/dL Docusate Sodium 200 mg 03/18/24 09:00 03/21/24 08:33 Docusate 100 Mg Capsule PO 03/18/25 08:59 200 mg DAILY JONATHAN Administration Dupilumab 300 mg 03/21/24 09:00 03/21/24 08:37 Dupilumab 300 Mg/2 Ml Pen.Injctr SUBCUT 03/21/25 08:59 Not Given Q2W JONATHAN Famotidine 20 mg 03/18/24 22:00 03/20/24 21:52 Famotidine 20 Mg Tablet PO 03/18/25 21:59 20 mg HS JONATHAN Administration Fenofibrate 145 mg 03/18/24 22:00 03/20/24 21:53 Fenofibrate Nanocrystallized 145 Mg Tablet PO 03/18/25 21:59 145 mg HS JONATHAN Administration Ferrous Sulfate 324 mg 03/18/24 09:00 03/21/24 08:32 Ferrous Sulfate 324 Mg Tablet.Dr PO 03/18/25 08:59 324 mg DAILY JONATHAN Administration Fluticasone Propionate 2 spray 03/18/24 09:00 03/21/24 08:33 Fluticasone Propionate [place] 120 [place]/16 Gm Bottle INTRANASAL 03/18/25 08:59 2 spray DAILY JONATHAN Administration Furosemide 40 mg 03/18/24 08:00 03/21/24 08:32 Furosemide 40 Mg Tablet PO 03/18/25 07:59 40 mg BID@0800,1600 JONATHAN Administration Glucose 30 gm 03/17/24 23:36 Dextrose 40% Gel 15 Gm Tube PO 03/17/25 23:35 TID.AC.HS.2A PRN Blood Glucose <100 mg/dL Glucose 15 gm 03/17/24 23:36 Dextrose 40% Gel 15 Gm Tube PO 03/17/25 23:35 TID.AC.HS.2A PRN Blood Glucose <120 mg/dL Hydromorphone HCl 1 mg 03/19/24 17:48 03/21/24 05:05 Hydromorphone 1 Mg/Ml Syringe IV-PUSH 1 mg Q4H PRN Administration Pain Vancomycin HCl 1 gm in 250 mls @ 250 mls/hr 03/19/24 21:30 03/21/24 09:33 Vancomycin IV 250 mls/hr Q12H JONATHAN Administration Meropenem 1 gm in 100 mls @ 33.333 mls/hr 03/19/24 23:00 03/21/24 06:11 Merrem IV 33.33 mls/hr Q8H JONATHAN Administration Magnesium Sulfate/Dextrose 1 gm in 100 mls @ 100 mls/hr 03/21/24 11:22 Magnesium Sulfate 1 Gm-*D5w* IV 03/21/24 12:21 ONCE ONE Insulin Human Regular 0 unit 03/18/24 02:00 03/21/24 08:33 Insulin Regular U-500, Human 1,500 Unit/3 Ml Insuln.Pen SUBCUT 03/18/25 01:59 5 unit TID.AC.HS.2A JONATHAN Administration Protocol Levothyroxine Sodium 100 mcg 03/18/24 06:30 03/21/24 06:12 Levothyroxine 100 Mcg Tablet PO 03/18/25 06:29 100 mcg DAILY@0630 JONATHAN Administration Levothyroxine Sodium 75 mcg 03/18/24 06:30 03/21/24 06:12 Levothyroxine 75 Mcg Tablet PO 03/18/25 06:29 75 mcg DAILY@0630 JONATHAN Administration Loratadine 10 mg 03/18/24 22:00 03/20/24 21:52 Loratadine 10 Mg Tablet PO 03/18/25 21:59 10 mg HS JONATHAN Administration Metoprolol Tartrate 75 mg 03/18/24 09:00 03/21/24 08:33 Metoprolol Tartrate 25 Mg Tablet PO 03/18/25 08:59 75 mg BID JONATHAN Administration Montelukast Sodium 10 mg 03/18/24 22:00 03/20/24 21:53 Montelukast 10 Mg Tablet PO 03/18/25 21:59 10 mg HS JONATHAN Administration Multivitamins 1 tab 03/18/24 09:00 03/21/24 08:33 Multivitamin 1 Tab Tablet PO 03/18/25 08:59 1 tab DAILY JONATHAN Administration Trulicity ( 4.5 mg 03/21/24 09:00 03/21/24 08:37 Dulaglutide) 4.5 Mg/ SUBCUT 03/21/25 08:59 Not Given 0.5 Ml Pen Injector Morrison@0900 [facility] Pom- Insulin Regular 200 unit 03/17/24 22:33 Hum U-500 Conc 500 SUBCUT 03/17/25 22:32 Unit/Ml Solution) Q3D PRN Uses with omnipod Pantoprazole Sodium 40 mg 03/18/24 09:00 03/21/24 08:32 Pantoprazole 40 Mg Vial IV-PUSH 03/18/25 08:59 40 mg DAILY JONATHAN Administration Saccharomyces Boulardii 250 mg 03/18/24 09:00 03/21/24 08:32 Saccharomyces Boulardii 250 Mg Capsule PO 03/18/25 08:59 250 mg BID JONATHAN Administration Sodium Chloride 0 ml 03/17/24 16:32 03/19/24 15:08 Sodium Chloride 0.9 % 10 Ml Syringe IV-PUSH 03/17/25 16:31 10 ml PRN PRN Administration Flush Sodium Chloride 10 ml 03/17/24 20:08 03/21/24 08:32 Sodium Chloride 0.9 % 10 Ml Vial.Pf INJECTION 03/17/25 20:07 10 ml PRN PRN Administration Dilution Sodium Chloride 10 ml 03/17/24 20:08 Sodium Chloride 0.9 % 10 Ml Syringe IV-PUSH 03/17/25 20:07 PRN PRN Flush Tramadol HCl 50 mg 03/18/24 01:44 03/19/24 03:12 Tramadol 50 Mg Tablet PO 09/14/24 01:43 50 mg Q6H PRN Administration Pain Scale 6 - 10 Triamcinolone Acetonide 1 applic 03/18/24 00:58 Triamcinolone 0.1% Cream 15 Gm Tube TOPICAL 03/18/25 00:57 DAILY PRN skin irritation Vancomycin HCl 1 each 03/17/24 20:08 Vancomycin - Pharmacy Dosing 1 Each Miscell IV ONCE PRN ZZ.Pharmacy Consult Protocol Vitamin B Complex/Vit C/Folic Acid 1 tab 03/18/24 09:00 03/21/24 08:33 Folic Acid/Vit Bcomp,C 1 Tab Tablet PO 03/18/25 08:59 1 tab DAILY JONATHAN Administration Zinc Gluconate 50 mg 03/18/24 09:00 03/21/24 08:33 Zinc Gluconate 50 Mg Tablet PO 03/18/25 08:59 50 mg DAILY JONATHAN Administration A&P - Hospitalist Assessment/Plan (1) Abscess: (2) Hyperlipidemia: (3) Type 2 diabetes mellitus with diabetic chronic kidney disease: (4) CKD (chronic kidney disease) stage 3, GFR 30-59 ml/min: (5) Hypoparathyroidism: (6) Hyperuricemia: Plan Large Abdominal wall/skin Necrotic wound infection, growing Achromobacter Xylosoxidans Poor wound healing given morbid obesity and Immunocompromised state from pt's Type 2 Diabetes Rule out Calciphylaxis Normocytic Anemia, likely in the setting of chronic inflammation -Patient underwent biopsy and debridement of her right lower abdomen open wound -Culture of the tissue growing Achromobacter Xylosoxidans MDRO, following with ID regarding the antibiotic management -Will switch to zosyn given sensitivity results for now as per ID recs -ID recommendation appreciated -SCDs for DVT prophylaxis given her anemia, started heparin subcu today -Pantoprazole IV 40 mg daily for GI prophylaxis -PT eval -Ambulate as tolerated -Wound care following As per general surgery recs: -Await culture results. -Patient states she already has an appointment at the [facility] wound care center next week. -Can be discharged with home health when okay with hospitalist and infectious disease. I discussed with the patient at length her plan of management. Answer question addressed or concerns. Time Spent With Patient (min): 45 Documented By: Audra Wheat MD 03/21/24 1123 Signed By: <Electronically signed by Audra Wheat MD> 03/21/24 [address] [facility] Work Phone: [phone] Progress note [facility] March 20, 2024 12:42pmNote Date/TimeOct2023 12:41[place] [address] General Surgery Progress Note Signed Patient: Mary Jane Suarez MR#: [id number] : 1970 Acct:[id number] Age/Sex: 53 / F Adm Date: 4 Loc: Room: [address] [place] [address] Type: ADM IN Attending Dr: Audra Wheat MD Copies to: ~ Date of Service: 03/20/2024 Subjective Subjective HPI: Patient is postop day #1 status post debridement of abdominal wound. Cultures pending. She appears comfortable. Allergies & Medications Medications and Allergies Allergies acetaminophen [Percocet] Allergy (Unknown, Verified 03/17/24 16:33) Unknown Reaction adhesive Allergy (Unknown, Verified 03/17/24 16:33) Rash aspirin Allergy (Unknown, Verified 03/17/24 16:33) Unknown Reaction azithromycin [Zithromax Z-Stalin] Allergy (Unknown, Verified 03/17/24 16:33) rash cefprozil [Cefzil] Allergy (Unknown, Verified 03/17/24 16:33) Unknown Reaction cephalexin Allergy (Unknown, Verified 03/17/24 16:33) Unknown Reaction Cephalosporins Allergy (Unknown, Verified 03/17/24 16:33) Hives ciprofloxacin Allergy (Unknown, Verified 03/17/24 16:33) Unknown moxifloxacin Allergy (Unknown, Verified 03/17/24 16:33) Hives oxycodone Allergy (Unknown, Verified 03/17/24 16:33) nausea penicillamine Allergy (Unknown, Verified 03/17/24 16:33) anaphylaxis Penicillins Allergy (Unknown, Verified 03/17/24 16:33) Unknown soy Allergy (Unknown, Verified 03/17/24 16:33) anaphylaxis sulfamethoxazole Allergy (Unknown, Verified 03/17/24 16:33) Anaphylaxis sulfanilamide Allergy (Unknown, Verified 03/17/24 16:33) Anaphylaxis trimethoprim Allergy (Unknown, Verified 03/17/24 16:33) Anaphylaxis BCise Allergy (Unknown, Uncoded 04/30/23 11:16) stomach upset Foam Tape Allergy (Unknown, Uncoded 10/09/23 14:20) Rash Home Medications Saccharomyces boulardii 250 mg capsule (Daily Probiotic (S. boulardii)) 250 mg PO BID 10/09/23 [History Confirmed 03/17/24] albuterol sulfate 2.5 mg/3 mL (0.083 %) solution for nebulization 2.5 mg inhalation Q6-8H PRN shortness of breath or wheezing 10/09/23 [History Confirmed 03/17/24] albuterol sulfate 90 mcg/actuation aerosol inhaler (Ventolin HFA) 2 puff inhalation Q4HR PRN shortness of breath or wheezing 10/09/23 [History Confirmed 03/17/24] allopurinol 300 mg tablet 1 tab PO DAILY 10/09/23 [History Confirmed 03/17/24] ascorbic acid (vitamin C) 250 mg tablet 250 mg PO DAILY 10/09/23 [History Confirmed 03/17/24] biotin 10 mg tablet 1 tab PO DAILY 10/09/23 [History Confirmed 03/17/24] budesonide-formoterol HFA 160 mcg-4.5 mcg/actuation aerosol inhaler (Symbicort) 2 puff inhalation BID 10/09/23 [History Confirmed 03/17/24] cinnamon bark 500 mg capsule (Cinnamon) 1,000 mg PO DAILY 10/09/23 [History Confirmed 03/17/24] cyclobenzaprine 10 mg tablet 10 mg PO QHS 10/09/23 [History Confirmed 03/17/24] docusate sodium 250 mg capsule 250 mg PO DAILY 10/09/23 [History Confirmed 03/17/24] dulaglutide 4.5 mg/0.5 mL subcutaneous pen injector (Trulicity) 4.5 mg subcut QWEEK 10/09/23 [History Confirmed 03/19/24] dupilumab 300 mg/2 mL subcutaneous pen injector 300 mg subcut Q2W 10/09/23 [History Confirmed 03/17/24] famotidine 20 mg tablet (Pepcid AC) 20 mg PO HS 10/09/23 [History Confirmed 03/17/24] fenofibrate 160 mg tablet 160 mg PO HS 10/09/23 [History Confirmed 03/17/24] ferrous sulfate 325 mg (65 mg iron) tablet (Feosol) 325 mg PO DAILY 10/09/23 [History Confirmed 03/17/24] fexofenadine 180 mg tablet 1 tab PO HS 10/09/23 [History Confirmed 03/17/24] fluticasone propionate 50 mcg/actuation nasal spray,suspension 2 spray intranasal DAILY 10/09/23 [History Confirmed 03/17/24] furosemide 40 mg tablet (Lasix) 40 mg PO BID 10/09/23 [History Confirmed 03/17/24] insulin regular hum U-500 conc 500 unit/mL subcutaneous soln 200 unit subcut Q3DPRN Uses with omnipod 10/09/23 [History Confirmed 03/17/24] krill 1,000 mg-omega-3 170 mg-dha 50 mg-epa 80 [id number] capsule (krill oil) 1 cap PO BID 10/09/23 [History Confirmed 03/17/24] levothyroxine 175 mcg tablet 1 tab PO QAM 10/09/23 [History Confirmed 03/17/24] montelukast 10 mg tablet (Singulair) 1 tab PO DAILY 10/09/23 [History Confirmed 03/17/24] multivitamin with minerals-ferrous sulfate 4.5 mg iron tablet (One Daily Multivitamins with Minerals) 1 tab PO QDAY 10/09/23 [History Confirmed 03/17/24] pantoprazole 40 mg tablet,delayed release (Protonix) 1 tab PO BID 10/09/23 [History Confirmed 03/17/24] polydextrose 1.5 gram chewable tablet (Childrens Fiber Gummy Bear) 4 g PO QDAY 10/09/23 [History Confirmed 03/17/24] pregabalin 100 mg capsule (Lyrica) 100 mg PO TID 10/09/23 [History Confirmed 03/17/24] triamcinolone acetonide 0.1 % topical ointment 1 applic topical DAILY PRN skin irritation 10/09/23 [History Confirmed 03/17/24] vitamin B complex 1 tab PO DAILY 10/09/23 [History Confirmed 03/17/24] vitamin E (dl, acetate) 180 mg (400 unit) capsule 1 cap PO DAILY 10/09/23 [History Confirmed 03/17/24] zinc gluconate 50 mg tablet 1 tab PO DAILY 10/09/23 [History Confirmed 03/17/24] insulin pump cart,cont inf,BT (Omnipod Dash Pods (Gen 4) subcutaneous cartridge) 03/17/24 [History Confirmed 03/17/24] metoprolol tartrate 75 mg tablet 75 mg PO BID 03/17/24 [History Confirmed 03/17/24] Active Medications Acetaminophen (Acetaminophen 500 Mg Tablet) 1,000 mg PO Q6H PRN PRN Reason: Fever or Pain Stop: 03/18/25 01:43 Last Admin: 03/18/24 01:56 Dose: 1,000 mg Hydrocodone Bitart/Acetaminophen (Hydrocodone/Acetaminophen 5-325 Mg Tablet) 1 tab PO Q6H PRN PRN Reason: Pain Last Admin: 03/20/24 11:51 Dose: 1 tab Albuterol (Albuterol Neb 2.5 Mg/3 Ml Vial.Neb) 2.5 mg INHALATION Q6HR PRN PRN Reason: shortness of breath or wheezing Stop: 03/17/25 22:32 Albuterol (Albuterol Hfa 60 Puff/8 Gram Inhaler) 2 puff INHALATION Q4HR PRN PRN Reason: shortness of breath or wheezing Stop: 03/17/25 22:32 Allopurinol (Allopurinol 300 Mg Tablet) 300 mg PO DAILY JONATHAN Stop: 03/18/25 08:59 Last Admin: 03/20/24 09:06 Dose: 300 mg Ascorbic Acid (Ascorbic Acid 500 Mg Tablet) 250 mg PO DAILY JONATHAN Stop: 03/18/25 08:59 Last Admin: 03/20/24 09:06 Dose: 250 mg Budesonide/Formoterol Fumarate (Budesonide/Formoterol 160-4.5 Mcg 60 Puff/6 Gm Hfa.Aer.Ad) 2 puff INHALATION BID JONATHAN Stop: 03/18/25 08:59 Last Admin: 03/20/24 08:25 Dose: 2 puff Cyclobenzaprine HCl (Cyclobenzaprine 10 Mg Tablet) 10 mg PO QHS JONATHAN Stop: 03/18/25 21:59 Last Admin: 03/19/24 21:50 Dose: 10 mg Dextrose (Dextrose 50% In Water 25 Gm/50 Ml Syringe) 15 gm IV-PUSH TID.AC.HS.2APRN PRN Reason: Blood Glucose <120 mg/dL Stop: 03/17/25 23:35 Dextrose (Dextrose 50% In Water 25 Gm/50 Ml Syringe) 25 gm IV-PUSH TID.AC.HS.2APRN PRN Reason: Blood Glucose <100 mg/dL Stop: 03/17/25 23:35 Docusate Sodium (Docusate 100 Mg Capsule) 200 mg PO DAILY JONATHAN Stop: 03/18/25 08:59 Last Admin: 03/20/24 09:06 Dose: 200 mg Dupilumab (Dupilumab 300 Mg/2 Ml Pen.Injctr) 300 mg SUBCUT Q2W JONATHAN Stop: 03/21/25 08:59 Famotidine (Famotidine 20 Mg Tablet) 20 mg PO HS JONATHAN Stop: 03/18/25 21:59 Last Admin: 03/19/24 21:50 Dose: 20 mg Fenofibrate (Fenofibrate Nanocrystallized 145 Mg Tablet) 145 mg PO HS JONATHAN Stop: 03/18/25 21:59 Last Admin: 03/19/24 21:50 Dose: 145 mg Ferrous Sulfate (Ferrous Sulfate 324 Mg Tablet.Dr) 324 mg PO DAILY JONATHAN Stop: 03/18/25 08:59 Last Admin: 03/20/24 09:06 Dose: 324 mg Fluticasone Propionate (Fluticasone Propionate [place] 120 [place]/16 Gm Bottle) 2 spray INTRANASAL DAILY JONATHAN Stop: 03/18/25 08:59 Last Admin: 03/20/24 09:07 Dose: 2 spray Furosemide (Furosemide 40 Mg Tablet) 40 mg PO BID@0800,1600 [facility] Stop: 03/18/25 07:59 Last Admin: 03/20/24 09:06 Dose: 40 mg Glucose (Dextrose 40% Gel 15 Gm Tube) 30 gm PO TID.AC.HS.2A PRN PRN Reason: Blood Glucose <100 mg/dL Stop: 03/17/25 23:35 Glucose (Dextrose 40% Gel 15 Gm Tube) 15 gm PO TID.AC.HS.2A PRN PRN Reason: Blood Glucose <120 mg/dL Stop: 03/17/25 23:35 Hydromorphone HCl (Hydromorphone 1 Mg/Ml Syringe) 1 mg IV-PUSH Q4H PRN PRN Reason: Pain Last Admin: 03/20/24 03:51 Dose: 1 mg Lactated Ringer's (Lactated Ringers) 1,000 mls @ 20 mls/hr IV .Q24H [facility] Stop: 03/19/25 15:14 Last Admin: 03/19/24 15:09 Dose: 20 mls/hr Vancomycin HCl (Vancomycin) 1 gm in 250 mls @ 250 mls/hr IV Q12H [facility] Last Admin: 03/20/24 09:36 Dose: 250 mls/hr Meropenem (Merrem) 1 gm in 100 mls @ 33.333 mls/hr IV Q8H [facility] Last Admin: 03/20/24 06:07 Dose: 33.33 mls/hr Insulin Human Regular (Insulin Regular U-500, Human 1,500 Unit/3 Ml Insuln.Pen) 0 unit SUBCUT TID.AC.HS.2A [facility]; Protocol Stop: 03/18/25 01:59 Last Admin: 03/20/24 11:47 Dose: 10 unit Levothyroxine Sodium (Levothyroxine 100 Mcg Tablet) 100 mcg PO DAILY@0630 [facility] Stop: 03/18/25 06:29 Last Admin: 03/20/24 06:08 Dose: 100 mcg Levothyroxine Sodium (Levothyroxine 75 Mcg Tablet) 75 mcg PO DAILY@0630 [facility] Stop: 03/18/25 06:29 Last Admin: 03/20/24 06:08 Dose: 75 mcg Loratadine (Loratadine 10 Mg Tablet) 10 mg PO HS JONATHAN Stop: 03/18/25 21:59 Last Admin: 03/19/24 21:50 Dose: 10 mg Metoprolol Tartrate (Metoprolol Tartrate 25 Mg Tablet) 75 mg PO BID JONATHAN Stop: 03/18/25 08:59 Last Admin: 03/20/24 09:06 Dose: 75 mg Montelukast Sodium (Montelukast 10 Mg Tablet) 10 mg PO HS JONATHAN Stop: 03/18/25 21:59 Last Admin: 03/19/24 21:49 Dose: 10 mg Multivitamins (Multivitamin 1 Tab Tablet) 1 tab PO DAILY JONATHAN Stop: 03/18/25 08:59 Last Admin: 03/20/24 09:06 Dose: 1 tab Trulicity ( Dulaglutide) 4.5 Mg/0.5 Ml Pen Injector 4.5 mg SUBCUT Morrison@0900 [facility] Stop: 03/21/25 08:59 Pom- Insulin Regular Hum U-500 Conc 500 Unit/Ml Solution) 200 unit SUBCUT Q3D PRN PRN Reason: Uses with omnipod Stop: 03/17/25 22:32 Pantoprazole Sodium (Pantoprazole 40 Mg Vial) 40 mg IV-PUSH DAILY JONATHAN Stop: 03/18/25 08:59 Last Admin: 03/20/24 09:07 Dose: 40 mg Saccharomyces Boulardii (Saccharomyces Boulardii 250 Mg Capsule) 250 mg PO BID JONATHAN Stop: 03/18/25 08:59 Last Admin: 03/20/24 09:06 Dose: 250 mg Sodium Chloride (Sodium Chloride 0.9 % 10 Ml Syringe) 0 ml IV-PUSH PRN PRN PRN Reason: Flush Stop: 03/17/25 16:31 Last Admin: 03/19/24 15:08 Dose: 10 ml Sodium Chloride (Sodium Chloride 0.9 % 10 Ml Vial.Pf) 10 ml INJECTION PRN PRN PRN Reason: Dilution Stop: 03/17/25 20:07 Last Admin: 03/20/24 09:07 Dose: 10 ml Sodium Chloride (Sodium Chloride 0.9 % 10 Ml Syringe) 10 ml IV-PUSH PRN PRN PRN Reason: Flush Stop: 03/17/25 20:07 Tramadol HCl (Tramadol 50 Mg Tablet) 50 mg PO Q6H PRN PRN Reason: Pain Scale 6 - 10 Stop: 09/14/24 01:43 Last Admin: 03/19/24 03:12 Dose: 50 mg Triamcinolone Acetonide (Triamcinolone 0.1% Cream 15 Gm Tube) 1 applic TOPICAL DAILY PRN PRN Reason: skin irritation Stop: 03/18/25 00:57 Vancomycin HCl (Vancomycin - Pharmacy Dosing 1 Each Miscell) 1 each IV ONCE PRN; Protocol PRN Reason: ZZ.Pharmacy Consult Vitamin B Complex/Vit C/Folic Acid (Folic Acid/Vit Bcomp,C 1 Tab Tablet) 1 tab PO DAILY JONATHAN Stop: 03/18/25 08:59 Last Admin: 03/20/24 09:06 Dose: 1 tab Zinc Gluconate (Zinc Gluconate 50 Mg Tablet) 50 mg PO DAILY [facility] Stop: 03/18/25 08:59 Last Admin: 03/20/24 09:06 Dose: 50 mg Exam Physical Exam Vital Signs: Temp Pulse Resp BP Pulse Ox O2 Del Method O2 Flow Rate 98.0 F 85 18 128/61 93 L Room Air 6 03/20/24 08:00 03/20/24 08:00 03/20/24 08:00 03/20/24 08:00 03/20/24 08:00 03/20/24 08:00 03/19/24 17:50 Const General: cooperative and no acute distress GI Other: Dressings dry. Neuro General: patient alert and patient awake Objective Pain Assessment Abdomen: Pain Description: Dull and Aching Pain Intensity: 7 Intake & Output 24 hour I&O: Intake & Output 03/19/24 03/20/24 03/20/24 23:59 07:59 15:59 Intake Total 250 / 550 600 / 600 Balance 250 / 550 600 / 600 Weight 122.3 kg Labs 03/20/24 04:00 03/20/24 04:00 Laboratory Results - Last 48 hrs. 03/20/24 11:46: POC Glucose 226 03/20/24 06:35: POC Glucose 120 03/20/24 04:00: Corrected WBC 4.9, Uncorrected WBC Count 4.9, RBC 3.45 L, Hgb 10.3 L, Hct 31.0 L, MCV 90.0, MCH 29.7, MCHC 33.0, RDW 14.7, Plt Count 205, MPV 10.0, Neut % (Auto) 53.5, Lymph % (Auto) 29.8, Jasper % (Auto) 9.1, Eos % (Auto) 7.0, Baso % (Auto) 0.6, Nucleat RBC Rel Count 0.0, Neut # (Auto) 2.6, Lymph # (Auto) 1.5, Jasper # (Auto) 0.4, Eos # (Auto) 0.3, Baso # (Auto) 0.0, PHA Creatinine Clear 93.38, Sodium 140, Potassium 4.2, Chloride 105, Carbon Dioxide 26.3, Anion Gap 12.9, BUN 10, Creatinine 0.85, Est GFR (CKD-EPI) > 60.0, [id number] H, Calcium 8.8, Phosphorus 3.2, Magnesium 1.8L, Total Bilirubin 0.4, AST 14, ALT 9, Alkaline Phosphatase 53, Total Protein 6.5, Albumin 3.2 L, Gl obulin 3.3, Albumin/Globulin Ratio 1.0 03/19/24 21:07: POC Glucose 313 03/19/24 19:20: Vancomycin Trough 16.9 03/19/24 17:51: POC Glucose 286 03/19/24 15:11: POC Glucose 284, POC Glucose Comment Glu2: cleaned meter 03/19/24 14:11: Urine HCG, Qual Negative 03/19/24 12:03: POC Glucose 301 03/19/24 09:00: Vancomycin Peak 34.9 03/19/24 06:35: POC Glucose 171 03/19/24 06:05: Corrected WBC 5.0, Uncorrected WBC Count 5.0, RBC 3.08 L, Hgb 9.3 L, Hct 28.0 L, MCV 90.9, MCH 30.2, MCHC 33.2, RDW 14.6, Plt Count 196, MPV 10.1, Neut % (Auto) 55.2, Lymph % (Auto) 27.1, Jasper % (Auto) 11.0, Eos % (Auto) 5.9, Baso % (Auto) 0.8, Nucleat RBC Rel Count 0.0, Neut # (Auto) 2.8, Lymph # (Auto) 1.4, Jasper # (Auto) 0.6, Eos # (Auto) 0.3, Baso # (Auto) 0.0, PHA Creatinine Clear 104.44, Sodium 141, Potassium 3.9, Chloride 108 H, Carbon Dioxide 24.8, Anion Gap 12.1, BUN 10,Creatinine 0.76, Est GFR (CKD-EPI) > 60.0,Glucose 167 H, Calcium 8.3 L, Phosphorus 3.3, Magnesium 1.6 L, Total Bilirubin 0.4, AST 13, ALT 8, Alkaline Phosphatase 48, Total Protein 6.0 L, Albumin 2.8 L,Globulin 3.2, Albumin/Globulin Ratio 0.9 03/19/24 03:02: POC Glucose 213 03/18/24 21:03: POC Glucose 349 03/18/24 16:22: POC Glucose 247 Microbiology Microbiology 03/19/24 17:34 Abdomen - Tissue Aerobic Culture - Preliminary 03/19/24 17:34 Abdomen - Tissue Anaerobic Culture - Preliminary No Anaerobes Isolated 1 Day 03/17/24 20:11 Abdomen - Right Lower Superficial Wound Culture - Final Achromobacter xylosoxidan MDRO 03/18/24 09:45 Abdomen - Drainage Superficial Wound Culture - Final Achromobacter xylosoxidan MDRO 03/17/24 18:20 Blood - Left Antecubital Blood Culture - Preliminary No Growth 2 Days 03/17/24 17:43 Blood - Right Antecubital Blood Culture - Preliminary No Growth 2 Days A&P - General Surgery Assessment/Plan (1) Chronic abdominal wound infection: Qualifiers: Encounter type: initial encounter Qualified Code(s): S31.109A - Unspecified open wound of abdominalwall, unspecified quadrant without penetration into peritoneal cavity, initial encounter; L08.9 - Local infection of the skin and subcutaneous tissue, unspecified (2) Type 2 diabetes mellitus with diabetic chronic kidney disease: Plan Continue dressing changes. Await culture results. Patient states she already has an appointment at the [facility] wound care center next week. Can be discharged with home health when okay with hospitalist and infectious disease. Documented By: Troy Moya MD 03/20/241239 Signed By: <Electronically signed by MD Troy Moya> 03/20/24 [address] Work Phone: [phone]) 555-208310-19-2024 Progress note Author Audra Wheat [facility] March 20, 2024 12:21pmNote Date/TimeOct2023 12:17pm[place] [address] Hospitalist Progress Note Signed Patient: Mary Jane Suarez MR#: [id number] : 1970 Acct:[id number] Age/Sex: 53 / F Adm Date: 4 Loc: 3T Room: [address] [place] [address] Type: ADM IN Attending Dr: Audra Wheat MD Copies to: ~ Date of Service: 03/20/2024 Subjective Subjective Narrative: Patient seen examined bedside. No events overnight. Patient underwent debridement with biopsy of the wound. I reviewed general surgery's note. Patient has no fever or chills. Labs were reviewed. He is very cooperative andpleasant. No events overnight. Patient hemodynamic stable. Exam Physical Exam Vital Signs: Temp Pulse Resp BP Pulse Ox O2 Del Method O2 Flow Rate 98.0 F 85 18 128/61 93 L Room Air 6 03/20/24 08:00 03/20/24 08:00 03/20/24 08:00 03/20/24 08:00 03/20/24 08:00 03/20/24 08:00 03/19/24 17:50 Narrative: General: Appears comfortable and not in distress, lying in bed, cooperative, calm, and pleasant, morbidly obese HEENT: No thyromegaly, no lymphadenopathy, EOMI, PERRLA, neck is supple Heart: normal S1 and S2, no murmurs, regular normal rate Lung: Bilateral air entry, no wheezing or crackles, pt is not in any respiratorydistress Abdomen/Skin : Soft, positive bowel sounds, her wound is packed, no erythema or discharge from it. 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 WORKER: Awake,Alert, following simple command, no focal sensory or motor deficits Psychiatric: Cooperative, normal mood and affect Objective Lab Results 03/20/24 04:00 03/20/24 04:00 Microbiology Results Microbiology 03/19/24 17:34 Abdomen - Tissue Aerobic Culture - Preliminary 03/19/24 17:34 Abdomen - Tissue Anaerobic Culture - Preliminary No Anaerobes Isolated 1 Day 03/17/24 20:11 Abdomen - Right Lower Superficial Wound Culture - Final Achromobacter xylosoxidan MDRO 03/18/24 09:45 Abdomen - Drainage Superficial Wound Culture - Final Achromobacter xylosoxidan MDRO 03/17/24 18:20 Blood - Left Antecubital Blood Culture - Preliminary No Growth 2 Days 03/17/24 17:43 Blood - Right Antecubital Blood Culture - Preliminary No Growth 2 Days Meds Allergies and Active Meds Allergies acetaminophen [Percocet] Allergy (Unknown, Verified 03/17/24 16:33) Unknown Reaction adhesive Allergy (Unknown, Verified 03/17/24 16:33) Rash aspirin Allergy (Unknown, Verified 03/17/24 16:33) Unknown Reaction azithromycin [Zithromax Z-Stalin] Allergy (Unknown, Verified 03/17/24 16:33) rash cefprozil [Cefzil] Allergy (Unknown, Verified 03/17/24 16:33) Unknown Reaction cephalexin Allergy (Unknown, Verified 03/17/24 16:33) Unknown Reaction Cephalosporins Allergy (Unknown, Verified 03/17/24 16:33) Hives ciprofloxacin Allergy (Unknown, Verified 03/17/24 16:33) Unknown moxifloxacin Allergy (Unknown, Verified 03/17/24 16:33) Hives oxycodone Allergy (Unknown, Verified 03/17/24 16:33) nausea penicillamine Allergy (Unknown, Verified 03/17/24 16:33) anaphylaxis Penicillins Allergy (Unknown, Verified 03/17/24 16:33) Unknown soy Allergy (Unknown, Verified 03/17/24 16:33) anaphylaxis sulfamethoxazole Allergy (Unknown, Verified 03/17/24 16:33) Anaphylaxis sulfanilamide Allergy (Unknown, Verified 03/17/24 16:33) Anaphylaxis trimethoprim Allergy (Unknown, Verified 03/17/24 16:33) Anaphylaxis BCise Allergy (Unknown, Uncoded 04/30/23 11:16) stomach upset Foam Tape Allergy (Unknown, Uncoded 10/09/23 14:20) Rash Active Meds: Active Medications Generic Name Dose Route Start Last Admin Trade Name Freq PRN Reason Stop Dose Admin Acetaminophen 1,000 mg 03/18/24 01:44 03/18/24 01:56 Acetaminophen 500 Mg Tablet PO 03/18/25 01:43 1,000 mg Q6H PRN Administration Fever or Pain Hydrocodone Bitart/Acetaminophen 1 tab 03/19/24 17:48 03/20/24 11:51 Hydrocodone/Acetaminophen 5-325 Mg Tablet PO 1 tab Q6H PRN Administration Pain Albuterol 2.5 mg 03/17/24 22:33 Albuterol Neb 2.5 Mg/3 Ml Vial.Neb INHALATION 03/17/25 22:32 Q6HR PRN shortness of breath or wheezing Albuterol 2 puff 03/17/24 22:33 Albuterol Hfa 60 Puff/8 Gram Inhaler INHALATION 03/17/25 22:32 Q4HR PRN shortness of breath or wheezing Allopurinol 300 mg 03/18/24 09:00 03/20/24 09:06 Allopurinol 300 Mg Tablet PO 03/18/25 08:59 300 mg DAILY JONATHAN Administration Ascorbic Acid 250 mg 03/18/24 09:00 03/20/24 09:06 Ascorbic Acid 500 Mg Tablet PO 03/18/25 08:59 250 mg DAILY JONATHAN Administration Budesonide/Formoterol Fumarate 2 puff 03/18/24 09:00 03/20/24 08:25 Budesonide/Formoterol 160-4.5 Mcg 60 Puff/6 Gm Hfa.Aer.Ad INHALATION 03/18/25 08:59 2 puff BID JONATHAN Administration Cyclobenzaprine HCl 10 mg 03/18/24 22:00 03/19/24 21:50 Cyclobenzaprine 10 Mg Tablet PO 03/18/25 21:59 10 mg QHS JONATHAN Administration Dextrose 15 gm 03/17/24 23:36 Dextrose 50% In Water 25 Gm/50 Ml Syringe IV-PUSH 03/17/25 23:35 TID.AC.HS.2A PRN Blood Glucose <120 mg/dL Dextrose 25 gm 03/17/24 23:36 Dextrose 50% In Water 25 Gm/50 Ml Syringe IV-PUSH 03/17/25 23:35 TID.AC.HS.2A PRN Blood Glucose <100 mg/dL Docusate Sodium 200 mg 03/18/24 09:00 03/20/24 09:06 Docusate 100 Mg Capsule PO 03/18/25 08:59 200 mg DAILY JONATHAN Administration Dupilumab 300 mg 03/21/24 09:00 Dupilumab 300 Mg/2 Ml Pen.Injctr SUBCUT 03/21/25 08:59 Q2W JONATHAN Famotidine 20 mg 03/18/24 22:00 03/19/24 21:50 Famotidine 20 Mg Tablet PO 03/18/25 21:59 20 mg HS JONATHAN Administration Fenofibrate 145 mg 03/18/24 22:00 03/19/24 21:50 Fenofibrate Nanocrystallized 145 Mg Tablet PO 03/18/25 21:59 145 mg HS JONATHAN Administration Ferrous Sulfate 324 mg 03/18/24 09:00 03/20/24 09:06 Ferrous Sulfate 324 Mg Tablet.Dr PO 03/18/25 08:59 324 mg DAILY JONATHAN Administration Fluticasone Propionate 2 spray 03/18/24 09:00 03/20/24 09:07 Fluticasone Propionate [place] 120 [place]/16 Gm Bottle INTRANASAL 03/18/25 08:59 2 spray DAILY JONATHAN Administration Furosemide 40 mg 03/18/24 08:00 03/20/24 09:06 Furosemide 40 Mg Tablet PO 03/18/25 07:59 40 mg BID@0800,1600 JONATHAN Administration Glucose 30 gm 03/17/24 23:36 Dextrose 40% Gel 15 Gm Tube PO 03/17/25 23:35 TID.AC.HS.2A PRN Blood Glucose <100 mg/dL Glucose 15 gm 03/17/24 23:36 Dextrose 40% Gel 15 Gm Tube PO 03/17/25 23:35 TID.AC.HS.2A PRN Blood Glucose <120 mg/dL Hydromorphone HCl 1 mg 03/19/24 17:48 03/20/24 03:51 Hydromorphone 1 Mg/Ml Syringe IV-PUSH 1 mg Q4H PRN Administration Pain Lactated Ringer's 1,000 mls @ 20 mls/hr 03/19/24 15:15 03/19/24 15:09 Lactated Ringers IV 03/19/25 15:14 20 mls/hr .Q24H JONATHAN Administration Vancomycin HCl 1 gm in 250 mls @ 250 mls/hr 03/19/24 21:30 03/20/24 09:36 Vancomycin IV 250 mls/hr Q12H JONATHAN Administration Meropenem 1 gm in 100 mls @ 33.333 mls/hr 03/19/24 23:00 03/20/24 06:07 Merrem IV 33.33 mls/hr Q8H JONATHAN Administration Insulin Human Regular 0 unit 03/18/24 02:00 03/20/24 11:47 Insulin Regular U-500, Human 1,500 Unit/3 Ml Insuln.Pen SUBCUT 03/18/25 01:59 10 unit TID.AC.HS.2A JONATHAN Administration Protocol Levothyroxine Sodium 100 mcg 03/18/24 06:30 03/20/24 06:08 Levothyroxine 100 Mcg Tablet PO 03/18/25 06:29 100 mcg DAILY@0630 JONATHAN Administration Levothyroxine Sodium 75 mcg 03/18/24 06:30 03/20/24 06:08 Levothyroxine 75 Mcg Tablet PO 03/18/25 06:29 75 mcg DAILY@0630 JONATHAN Administration Loratadine 10 mg 03/18/24 22:00 03/19/24 21:50 Loratadine 10 Mg Tablet PO 03/18/25 21:59 10 mg HS JONATHAN Administration Metoprolol Tartrate 75 mg 03/18/24 09:00 03/20/24 09:06 Metoprolol Tartrate 25 Mg Tablet PO 03/18/25 08:59 75 mg BID JONATHAN Administration Montelukast Sodium 10 mg 03/18/24 22:00 03/19/24 21:49 Montelukast 10 Mg Tablet PO 03/18/25 21:59 10 mg HS [facility] Administration Multivitamins 1 tab 03/18/24 09:00 03/20/24 09:06 Multivitamin 1 Tab Tablet PO 03/18/25 08:59 1 tab DAILY [facility] Administration Trulicity ( 4.5 mg 03/21/24 09:00 Dulaglutide) 4.5 Mg/ SUBCUT 03/21/25 08:59 0.5 Ml Pen Injector Morrison@0900 [facility] Pom- Insulin Regular 200 unit 03/17/24 22:33 Hum U-500 Conc 500 SUBCUT 03/17/25 22:32 Unit/Ml Solution) Q3D PRN Uses with omnipod Pantoprazole Sodium 40 mg 03/18/24 09:00 03/20/24 09:07 Pantoprazole 40 Mg Vial IV-PUSH 03/18/25 08:59 40 mg DAILY JONATHAN Administration Saccharomyces Boulardii 250 mg 03/18/24 09:00 03/20/24 09:06 Saccharomyces Boulardii 250 Mg Capsule PO 03/18/25 08:59 250 mg BID JONATHAN Administration Sodium Chloride 0 ml 03/17/24 16:32 03/19/24 15:08 Sodium Chloride 0.9 % 10 Ml Syringe IV-PUSH 03/17/25 16:31 10 ml PRN PRN Administration Flush Sodium Chloride 10 ml 03/17/24 20:08 03/20/24 09:07 Sodium Chloride 0.9 % 10 Ml Vial.Pf INJECTION 03/17/25 20:07 10 ml PRN PRN Administration Dilution Sodium Chloride 10 ml 03/17/24 20:08 Sodium Chloride 0.9 % 10 Ml Syringe IV-PUSH 03/17/25 20:07 PRN PRN Flush Tramadol HCl 50 mg 03/18/24 01:44 03/19/24 03:12 Tramadol 50 Mg Tablet PO 09/14/24 01:43 50 mg Q6H PRN Administration Pain Scale 6 - 10 Triamcinolone Acetonide 1 applic 03/18/24 00:58 Triamcinolone 0.1% Cream 15 Gm Tube TOPICAL 03/18/25 00:57 DAILY PRN skin irritation Vancomycin HCl 1 each 03/17/24 20:08 Vancomycin - Pharmacy Dosing 1 Each Miscell IV ONCE PRN ZZ.Pharmacy Consult Protocol Vitamin B Complex/Vit C/Folic Acid 1 tab 03/18/24 09:00 03/20/24 09:06 Folic Acid/Vit Bcomp,C 1 Tab Tablet PO 03/18/25 08:59 1 tab DAILY JONATHAN Administration Zinc Gluconate 50 mg 03/18/24 09:00 03/20/24 09:06 Zinc Gluconate 50 Mg Tablet PO 03/18/25 08:59 50 mg DAILY JONATHAN Administration A&P - Hospitalist Assessment/Plan (1) Abscess: (2) Hyperlipidemia: (3) Type 2 diabetes mellitus with diabetic chronic kidney disease: (4) CKD (chronic kidney disease) stage 3, GFR 30-59 ml/min: (5) Hypoparathyroidism: (6) Hyperuricemia: Plan Large Abdominal wall/skin Necrotic wound infection Poor wound healing given morbid obesity and Immunocompromised state from pt's Type 2 Diabetes Rule out Calciphylaxis Normocytic Anemia, likely in the setting of chronic inflammation -Patient underwent biopsy and debridement of her right lower abdomen open wound, will follow-up on culture and pathology -For now, continue vancomycin IV and meropenem IV, to be dosed by pharmacy -ID recommendation appreciated -SCDs for DVT prophylaxis given her anemia -Pantoprazole IV 40 mg daily for GI prophylaxis -PT eval -Ambulate as tolerated -Wound care following I discussed with the patient at length her plan of management. Answer question addressed or concerns. Time Spent With Patient (min): 45 Documented By: Audra Wheat MD 03/20/24 1215 Signed By: <Electronically signed by Audra Wheat MD> 03/20/24 1221 [facility] Work Phone: 1(550) 439-425510-18-2024 Progress note Author Audra Wheat [facility] March 19, 2024 1:47pmNote Date/TimeOct2023 1:[place] [address] Hospitalist Progress Note Signed Patient: Mary Jane Suarez MR#: [id number] : 1970 Acct:[id number] Age/Sex: 53 / F Adm Date: 4 Loc: Room: [address] [place] [address] Type: ADM IN Attending Dr: Audra Wheat MD Copies to: ~ Date of Service: 03/19/2024 Subjective Subjective Narrative: Patient seen examined bedside. No events overnight. Patient has no fever or chills. She is hemodynamically the patient is on the negative side. She is pleasant cooperative. Wound care nurse and ID were at bedside. Rescheduled fordebridement and biopsy of the wound by surgery today. Exam Physical Exam Vital Signs: Temp Pulse Resp BP Pulse Ox O2 Del Method 98.1 F 70 18 142/74 H 96 Room Air 03/19/24 12:00 03/19/24 12:00 03/19/24 12:00 03/19/24 12:00 03/19/24 12:00 03/19/24 12:00 Narrative: General: Appears comfortable and not in distress, lying in bed, cooperative, calm, and pleasant, morbidly obese HEENT: No thyromegaly, no lymphadenopathy, EOMI, PERRLA, neck is supple Heart: normal S1 and S2, no murmurs, regular normal rate Lung: Bilateral air entry, no wheezing or crackles, pt is not in any respiratorydistress Abdomen/Skin : Soft, positive bowel sounds, she does have a large abdominal wound iinvolving her right lower quadrant abdomnial wall, involving the adipose tissue, not clear if there is involvement of muscles, surrounded by areas of induration and erythema involving the skin folds in the area. There is foul smelling odor and signs of necrotic tissue in the wound area. 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 WORKER: Awake,Alert, following simple command, no focal sensory or motor deficits Psychiatric: Cooperative, normal mood and affect Objective Lab Results 03/19/24 06:05 03/19/24 06:05 Microbiology Results Microbiology 03/17/24 20:11 Abdomen - Right Lower Superficial Wound Culture - Preliminary Gram Negative Bacilli 03/18/24 09:45 Abdomen - Drainage Superficial Wound Culture - Preliminary Gram Negative Bacilli 03/17/24 18:20 Blood - Left Antecubital Blood Culture - Preliminary No Growth 1 Day 03/17/24 17:43 Blood - Right Antecubital Blood Culture - Preliminary No Growth 1 Day Meds Allergies and Active Meds Allergies acetaminophen [Percocet] Allergy (Unknown, Verified 03/17/24 16:33) Unknown Reaction adhesive Allergy (Unknown, Verified 03/17/24 16:33) Rash aspirin Allergy (Unknown, Verified 03/17/24 16:33) Unknown Reaction azithromycin [Zithromax Z-Stalin] Allergy (Unknown, Verified 03/17/24 16:33) rash cefprozil [Cefzil] Allergy (Unknown, Verified 03/17/24 16:33) Unknown Reaction cephalexin Allergy (Unknown, Verified 03/17/24 16:33) Unknown Reaction Cephalosporins Allergy (Unknown, Verified 03/17/24 16:33) Hives ciprofloxacin Allergy (Unknown, Verified 03/17/24 16:33) Unknown moxifloxacin Allergy (Unknown, Verified 03/17/24 16:33) Hives oxycodone Allergy (Unknown, Verified 03/17/24 16:33) nausea penicillamine Allergy (Unknown, Verified 03/17/24 16:33) anaphylaxis Penicillins Allergy (Unknown, Verified 03/17/24 16:33) Unknown soy Allergy (Unknown, Verified 03/17/24 16:33) anaphylaxis sulfamethoxazole Allergy (Unknown, Verified 03/17/24 16:33) Anaphylaxis sulfanilamide Allergy (Unknown, Verified 03/17/24 16:33) Anaphylaxis trimethoprim Allergy (Unknown, Verified 03/17/24 16:33) Anaphylaxis BCise Allergy (Unknown, Uncoded 04/30/23 11:16) stomach upset Foam Tape Allergy (Unknown, Uncoded 10/09/23 14:20) Rash Active Meds: Active Medications Generic Name Dose Route Start Last Admin Trade Name Freq PRN Reason Stop Dose Admin Acetaminophen 1,000 mg 03/18/24 01:44 03/18/24 01:56 Acetaminophen 500 Mg Tablet PO 03/18/25 01:43 1,000 mg Q6H PRN Administration Fever or Pain Albuterol 2.5 mg 03/17/24 22:33 Albuterol Neb 2.5 Mg/3 Ml Vial.Neb INHALATION 03/17/25 22:32 Q6HR PRN shortness of breath or wheezing Albuterol 2 puff 03/17/24 22:33 Albuterol Hfa 60 Puff/8 Gram Inhaler INHALATION 03/17/25 22:32 Q4HR PRN shortness of breath or wheezing Allopurinol 300 mg 03/18/24 09:00 03/19/24 10:24 Allopurinol 300 Mg Tablet PO 03/18/25 08:59 Not Given DAILY JONATHAN Ascorbic Acid 250 mg 03/18/24 09:00 03/19/24 10:25 Ascorbic Acid 500 Mg Tablet PO 03/18/25 08:59 Not Given DAILY JONATHAN Budesonide/Formoterol Fumarate 2 puff 03/18/24 09:00 03/19/24 08:01 Budesonide/Formoterol 160-4.5 Mcg 60 Puff/6 Gm Hfa.Aer.Ad INHALATION 03/18/25 08:59 2 puff BID JONATHAN Administration Cyclobenzaprine HCl 10 mg 03/18/24 22:00 03/18/24 21:39 Cyclobenzaprine 10 Mg Tablet PO 03/18/25 21:59 10 mg QHS JONATHAN Administration Dextrose 15 gm 03/17/24 23:36 Dextrose 50% In Water 25 Gm/50 Ml Syringe IV-PUSH 03/17/25 23:35 TID.AC.HS.2A PRN Blood Glucose <120 mg/dL Dextrose 25 gm 03/17/24 23:36 Dextrose 50% In Water 25 Gm/50 Ml Syringe IV-PUSH 03/17/25 23:35 TID.AC.HS.2A PRN Blood Glucose <100 mg/dL Docusate Sodium 200 mg 03/18/24 09:00 03/19/24 10:25 Docusate 100 Mg Capsule PO 03/18/25 08:59 Not Given DAILY JONATHAN Dupilumab 300 mg 03/21/24 09:00 Dupilumab 300 Mg/2 Ml Pen.Injctr SUBCUT 03/21/25 08:59 Q2W JONATHAN Famotidine 20 mg 03/18/24 22:00 03/18/24 21:38 Famotidine 20 Mg Tablet PO 03/18/25 21:59 20 mg HS JONATHAN Administration Fenofibrate 145 mg 03/18/24 22:00 03/18/24 21:39 Fenofibrate Nanocrystallized 145 Mg Tablet PO 03/18/25 21:59 145 mg HS JONATHAN Administration Ferrous Sulfate 324 mg 03/18/24 09:00 03/19/24 10:25 Ferrous Sulfate 324 Mg Tablet.Dr PO 03/18/25 08:59 Not Given DAILY JONATHAN Fluticasone Propionate 2 spray 03/18/24 09:00 03/19/24 09:10 Fluticasone Propionate [place] 120 [place]/16 Gm Bottle INTRANASAL 03/18/25 08:59 2 spray DAILY JONATHAN Administration Furosemide 40 mg 03/18/24 08:00 03/19/24 10:24 Furosemide 40 Mg Tablet PO 03/18/25 07:59 Not Given BID@0800,1600 JONATHAN Glucose 30 gm 03/17/24 23:36 Dextrose 40% Gel 15 Gm Tube PO 03/17/25 23:35 TID.AC.HS.2A PRN Blood Glucose <100 mg/dL Glucose 15 gm 03/17/24 23:36 Dextrose 40% Gel 15 Gm Tube PO 03/17/25 23:35 TID.AC.HS.2A PRN Blood Glucose <120 mg/dL Meropenem 1 gm in 100 mls @ 200 mls/hr 03/17/24 21:00 03/19/24 12:47 Merrem IV 200 mls/hr Q8H JONATHAN Administration Vancomycin HCl 1.25 gm/ 275 mls @ 183.333 mls/hr 03/18/24 06:30 03/19/24 06:23 Dextrose IV 03/18/25 06:29 183.33 mls/hr Q12H JONATHAN Administration Insulin Human Regular 0 unit 03/18/24 02:00 03/19/24 12:47 Insulin Regular U-500, Human 1,500 Unit/3 Ml Insuln.Pen SUBCUT 03/18/25 01:59 Not Given TID.AC.HS.2A JONATHAN Protocol Levothyroxine Sodium 100 mcg 03/18/24 06:30 03/19/24 05:41 Levothyroxine 100 Mcg Tablet PO 03/18/25 06:29 100 mcg DAILY@0630 JONATHAN Administration Levothyroxine Sodium 75 mcg 03/18/24 06:30 03/19/24 05:41 Levothyroxine 75 Mcg Tablet PO 03/18/25 06:29 75 mcg DAILY@0630 JONATHAN Administration Loratadine 10 mg 03/18/24 22:00 03/18/24 21:39 Loratadine 10 Mg Tablet PO 03/18/25 21:59 10 mg HS JONATHAN Administration Metoprolol Tartrate 75 mg 03/18/24 09:00 03/19/24 09:09 Metoprolol Tartrate 25 Mg Tablet PO 03/18/25 08:59 75 mg BID JONATHAN Administration Montelukast Sodium 10 mg 03/18/24 22:00 03/18/24 21:40 Montelukast 10 Mg Tablet PO 03/18/25 21:59 10 mg HS JONATHAN Administration Multivitamins 1 tab 03/18/24 09:00 03/19/24 10:25 Multivitamin 1 Tab Tablet PO 03/18/25 08:59 Not Given DAILY JONATHAN Trulicity ( 4.5 mg 03/21/24 09:00 Dulaglutide) 4.5 Mg/ SUBCUT 03/21/25 08:59 0.5 Ml Pen Injector Morrison@0900 [facility] Pom- Insulin Regular 200 unit 03/17/24 22:33 Hum U-500 Conc 500 SUBCUT 03/17/25 22:32 Unit/Ml Solution) Q3D PRN Uses with omnipod Pantoprazole Sodium 40 mg 03/18/24 09:00 03/19/24 09:09 Pantoprazole 40 Mg Vial IV-PUSH 03/18/25 08:59 40 mg DAILY JONATHAN Administration Saccharomyces Boulardii 250 mg 03/18/24 09:00 03/19/24 10:25 Saccharomyces Boulardii 250 Mg Capsule PO 03/18/25 08:59 Not Given BID JONATHAN Sodium Chloride 0 ml 03/17/24 16:32 03/18/24 18:04 Sodium Chloride 0.9 % 10 Ml Syringe IV-PUSH 03/17/25 16:31 10 ml PRN PRN Administration Flush Sodium Chloride 10 ml 03/17/24 20:08 03/19/24 09:10 Sodium Chloride 0.9 % 10 Ml Vial.Pf INJECTION 03/17/25 20:07 10 ml PRN PRN Administration Dilution Sodium Chloride 10 ml 03/17/24 20:08 Sodium Chloride 0.9 % 10 Ml Syringe IV-PUSH 03/17/25 20:07 PRN PRN Flush Tramadol HCl 50 mg 03/18/24 01:44 03/19/24 03:12 Tramadol 50 Mg Tablet PO 09/14/24 01:43 50 mg Q6H PRN Administration Pain Scale 6 - 10 Triamcinolone Acetonide 1 applic 03/18/24 00:58 Triamcinolone 0.1% Cream 15 Gm Tube TOPICAL 03/18/25 00:57 DAILY PRN skin irritation Vancomycin HCl 1 each 03/17/24 20:08 Vancomycin - Pharmacy Dosing 1 Each Miscell IV ONCE PRN ZZ.Pharmacy Consult Protocol Vitamin B Complex/Vit C/Folic Acid 1 tab 03/18/24 09:00 03/19/24 10:25 Folic Acid/Vit Bcomp,C 1 Tab Tablet PO 03/18/25 08:59 Not Given DAILY JONATHAN Zinc Gluconate 50 mg 03/18/24 09:00 03/19/24 10:25 Zinc Gluconate 50 Mg Tablet PO 03/18/25 08:59 Not Given DAILY JONATHAN A&P - Hospitalist Assessment/Plan (1) Abscess: (2) Hyperlipidemia: (3) Type 2 diabetes mellitus with diabetic chronic kidney disease: (4) CKD (chronic kidney disease) stage 3, GFR 30-59 ml/min: (5) Hypoparathyroidism: (6) Hyperuricemia: Plan Large Abdominal wall/skin Necrotic wound infection Poor wound healing given morbid obesity and Immunocompromised state from pt's Type 2 Diabetes Rule out Calciphylaxis Normocytic Anemia, likely in the setting of chronic inflammation -Labs reviewed, were unremarkable, ID consulted, appreciate their recs -Continue vancomycin IV and meropenem IV, to be dosed by pharmacy -ID recommendation appreciate -CT abdomen pelvis results reviewed -Scheduled for debridement and will biopsy today by general surgery -SCDs for DVT prophylaxis given her anemia -Pantoprazole IV 40 mg daily for GI prophylaxis -PT eval -Ambulate as tolerated -Wound care eval Time Spent With Patient (min): 35 Documented By: Audra Wheat MD 03/19/24 1345 Signed By: <Electronically signed by Audra Wheat MD> 03/19/24 1347 [facility] Work Phone: 1(591) 629-287310-18-2024 Miscellaneous Notes* Telephone Encounter - Yandy Bray RN - 03/19/2024 2:23 PM EDT [employer] called patient to let her know she missed her wound clinic appointment today. Patient shon is currently admitted to the hospital at [facility] in [facility]. Patient states she was admitted on 03/17/24. Pt states she has an infection and is on antibiotics. Pt also states she may be having a surgical debridement while admitted. Pt states she will call the wound clinic to make an appointment after she is discharged from the hospital. [facility] Net10-18-2024 Telephone encounter Note* Telephone Encounter - Yandy Bray RN - 03/19/2024 2:23 PM EDT [employer] called patient to let her know she missed her wound clinic appointment today. Patient shon is currently admitted to the hospital at [facility] in [facility]. Patient states she was admitted on 03/17/24. Pt states she has an infection and is on antibiotics. Pt also states she may be having a surgical debridement while admitted. Pt states she will call the wound clinic to make an appointment after she is discharged from the hospital. [facility] [id number] Progress note Author Antonio Jenkins [facility] March 19, 2024 9:48amNote Date/TimeOct2023 9:48am[address] [address] Infect. Disease Progress Note Signed Patient: Mary Jane Suarez MR#: [id number] : 1970 Acct:[id number] Age/Sex: 53 / F Adm Date: 4 Loc: 3T Room: [address] [place] [address] Type: ADM IN Attending Dr: Audra Wheat MD Copies to: ~ Date of Service: 03/19/2024 Subjective Interval history: For debridement today. States she is having some discomfort in the right lower quadrant of her abdomen. Afebrile overnight. Exam Physical Exam Vital Signs: Temp Pulse Resp BP Pulse Ox O2 Del Method 98.0 F 77 18 125/74 95 Room Air 03/19/24 04:46 03/19/24 04:46 03/19/24 04:46 03/19/24 04:46 03/19/24 04:46 03/19/24 04:46 Const General: comfortable and no acute distress HEENT Ears: hearing grossly normal bilaterally Nose: external nose normal Face and sinus: normal facial exam Teeth and gingiva: dentition normal Throat: posterior oropharynx normal Eyes General: appearance normal, both eyes and all related structures Neck Neck: normal visual inspection Chest Chest palpation & inspection: normal inspection of the chest Resp Effort & Inspection: normal respiratory effort Auscultation: clear to auscultation bilaterally Cardio Rate: regular rate GI Inspection: abnormal to inspection and obesity Skin General: rashes and/or lesions noted Other: Neuro General: patient oriented x3 Extrem General: normal to inspection Objective Labs CBC/BMP: CBC, BMP 03/19/24 06:05 Corrected WBC 5.0 Uncorrected WBC Count 5.0 RBC 3.08 L Hgb 9.3 L Hct 28.0 L Plt Count 196 Sodium 141 Potassium 3.9 Chloride 108 H Carbon Dioxide 24.8 Anion Gap 12.1 BUN 10 Creatinine 0.76 Calcium 8.3 L Labs: 03/19/24 06:05 BUN 10 Creatinine 0.76 Microbiology Microbiology: 03/17/24 18:20 Blood Culture - Preliminary Blood - Left Antecubital No Growth 1 Day 03/17/24 17:43 Blood Culture - Preliminary Blood - Right Antecubital No Growth 1 Day 03/17/24 20:11 Superficial Wound Culture - Pending Abdomen - Right Lower 03/18/24 09:45 Superficial Wound Culture - Pending Abdomen - Drainage Allergies and Medications Allergies and Active Meds Allergies acetaminophen [Percocet] Allergy (Unknown, Verified 03/17/24 16:33) Unknown Reaction adhesive Allergy (Unknown, Verified 03/17/24 16:33) Rash aspirin Allergy (Unknown, Verified 03/17/24 16:33) Unknown Reaction azithromycin [Zithromax Z-Stalin] Allergy (Unknown, Verified 03/17/24 16:33) rash cefprozil [Cefzil] Allergy (Unknown, Verified 03/17/24 16:33) Unknown Reaction cephalexin Allergy (Unknown, Verified 03/17/24 16:33) Unknown Reaction Cephalosporins Allergy (Unknown, Verified 03/17/24 16:33) Hives ciprofloxacin Allergy (Unknown, Verified 03/17/24 16:33) Unknown moxifloxacin Allergy (Unknown, Verified 03/17/24 16:33) Hives oxycodone Allergy (Unknown, Verified 03/17/24 16:33) nausea penicillamine Allergy (Unknown, Verified 03/17/24 16:33) anaphylaxis Penicillins Allergy (Unknown, Verified 03/17/24 16:33) Unknown soy Allergy (Unknown, Verified 03/17/24 16:33) anaphylaxis sulfamethoxazole Allergy (Unknown, Verified 03/17/24 16:33) Anaphylaxis sulfanilamide Allergy (Unknown, Verified 03/17/24 16:33) Anaphylaxis trimethoprim Allergy (Unknown, Verified 03/17/24 16:33) Anaphylaxis BCise Allergy (Unknown, Uncoded 04/30/23 11:16) stomach upset Foam Tape Allergy (Unknown, Uncoded 10/09/23 14:20) Rash Active Medications Acetaminophen (Acetaminophen 500 Mg Tablet) 1,000 mg PO Q6H PRN PRN Reason: Fever or Pain Stop: 03/18/25 01:43 Last Admin: 03/18/24 01:56 Dose: 1,000 mg Albuterol (Albuterol Neb 2.5 Mg/3 Ml Vial.Neb) 2.5 mg INHALATION Q6HR PRN PRN Reason: shortness of breath or wheezing Stop: 03/17/25 22:32 Albuterol (Albuterol Hfa 60 Puff/8 Gram Inhaler) 2 puff INHALATION Q4HR PRN PRN Reason: shortness of breath or wheezing Stop: 03/17/25 22:32 Allopurinol (Allopurinol 300 Mg Tablet) 300 mg PO DAILY JONATHAN Stop: 03/18/25 08:59 Last Admin: 03/18/24 10:18 Dose: Not Given Ascorbic Acid (Ascorbic Acid 500 Mg Tablet) 250 mg PO DAILY [facility] Stop: 03/18/25 08:59 Last Admin: 03/18/24 18:03 Dose: 250 mg Budesonide/Formoterol Fumarate (Budesonide/Formoterol 160-4.5 Mcg 60 Puff/6 Gm Hfa.Aer.Ad) 2 puff INHALATION BID JONATHAN Stop: 03/18/25 08:59 Last Admin: 03/19/24 08:01 Dose: 2 puff Cyclobenzaprine HCl (Cyclobenzaprine 10 Mg Tablet) 10 mg PO QHS JONATHAN Stop: 03/18/25 21:59 Last Admin: 03/18/24 21:39 Dose: 10 mg Dextrose (Dextrose 50% In Water 25 Gm/50 Ml Syringe) 15 gm IV-PUSH TID.AC.HS.2A PRN PRN Reason: Blood Glucose <120 mg/dL Stop: 03/17/25 23:35 Dextrose (Dextrose 50% In Water 25 Gm/50 Ml Syringe) 25 gm IV-PUSH TID.AC.HS.2A PRN PRN Reason: Blood Glucose <100 mg/dL Stop: 03/17/25 23:35 Docusate Sodium (Docusate 100 Mg Capsule) 200 mg PO DAILY [facility] Stop: 03/18/25 08:59 Last Admin: 03/18/24 18:04 Dose: Not Given Dupilumab (Dupilumab 300 Mg/2 Ml Pen.Injctr) 300 mg SUBCUT Q2W [facility] Stop: 03/21/25 08:59 Famotidine (Famotidine 20 Mg Tablet) 20 mg PO HS [facility] Stop: 03/18/25 21:59 Last Admin: 03/18/24 21:38 Dose: 20 mg Fenofibrate (Fenofibrate Nanocrystallized 145 Mg Tablet) 145 mg PO HS [facility] Stop: 03/18/25 21:59 Last Admin: 03/18/24 21:39 Dose: 145 mg Ferrous Sulfate (Ferrous Sulfate 324 Mg Tablet.Dr) 324 mg PO DAILY [facility] Stop: 03/18/25 08:59 Last Admin: 03/18/24 22:30 Dose: 324 mg Fluticasone Propionate (Fluticasone Propionate [place] 120 [place]/16 Gm Bottle) 2 spray INTRANASAL DAILY [facility] Stop: 03/18/25 08:59 Last Admin: 03/19/24 09:10 Dose: 2 spray Furosemide (Furosemide 40 Mg Tablet) 40 mg PO BID@0800,1600 [facility] Stop: 03/18/25 07:59 Last Admin: 03/18/24 18:04 Dose: Not Given Glucose (Dextrose 40% Gel 15 Gm Tube) 30 gm PO TID.AC.HS.2A PRN PRN Reason: Blood Glucose <100 mg/dL Stop: 03/17/25 23:35 Glucose (Dextrose 40% Gel 15 Gm Tube) 15 gm PO TID.AC.HS.2A PRN PRN Reason: Blood Glucose <120 mg/dL Stop: 03/17/25 23:35 Meropenem (Merrem) 1 gm in 100 mls @ 200 mls/hr IV Q8H [facility] Last Admin: 03/19/24 05:06 Dose: 200 mls/hr Vancomycin HCl 1.25 gm/ (Dextrose) 275 mls @ 183.333 mls/hr IV Q12H [facility] Stop: 03/18/25 06:29 Last Admin: 03/19/24 06:23 Dose: 183.33 mls/hr Insulin Human Regular (Insulin Regular U-500, Human 1,500 Unit/3 Ml Insuln.Pen) 0 unit SUBCUT TID.AC.HS.2A [facility]; Protocol Stop: 03/18/25 01:59 Last Admin: 03/19/24 09:12 Dose: Not Given Levothyroxine Sodium (Levothyroxine 100 Mcg Tablet) 100 mcg PO DAILY@0630 [facility] Stop: 03/18/25 06:29 Last Admin: 03/19/24 05:41 Dose: 100 mcg Levothyroxine Sodium (Levothyroxine 75 Mcg Tablet) 75 mcg PO DAILY@0630 [facility] Stop: 03/18/25 06:29 Last Admin: 03/19/24 05:41 Dose: 75 mcg Loratadine (Loratadine 10 Mg Tablet) 10 mg PO [facility] Stop: 03/18/25 21:59 Last Admin: 03/18/24 21:39 Dose: 10 mg Metoprolol Tartrate (Metoprolol Tartrate 25 Mg Tablet) 75 mg PO BID [facility] Stop: 03/18/25 08:59 Last Admin: 10/18/24 09:09 Dose: 75 mg Montelukast Sodium (Montelukast 10 Mg Tablet) 10 mg PO HS JONATHAN Stop: 03/18/25 21:59 Last Admin: 03/18/24 21:40 Dose: 10 mg Multivitamins (Multivitamin 1 Tab Tablet) 1 tab PO DAILY [facility] Stop: 03/18/25 08:59 Last Admin: 03/18/24 22:30 Dose: 1 tab Trulicity ( Dulaglutide) 4.5 Mg/0.5 Ml Pen Injector 4.5 mg SUBCUT Morrison@0900 JONATHAN Stop: 03/21/25 08:59 Pom- Insulin Regular Hum U-500 Conc 500 Unit/Ml Solution) 200 unit SUBCUT Q3D PRN PRN Reason: Uses with omnipod Stop: 03/17/25 22:32 Pantoprazole Sodium (Pantoprazole 40 Mg Vial) 40 mg IV-PUSH DAILY [facility]ATHAN Stop: 03/18/25 08:59 Last Admin: 03/19/24 09:09 Dose: 40 mg Saccharomyces Boulardii (Saccharomyces Boulardii 250 Mg Capsule) 250 mg PO BID JONATHAN Stop: 03/18/25 08:59 Last Admin: 03/18/24 21:39 Dose: 250 mg Sodium Chloride (Sodium Chloride 0.9 % 10 Ml Syringe) 0 ml IV-PUSH PRN PRN PRN Reason: Flush Stop: 03/17/25 16:31 Last Admin: 03/18/24 18:04 Dose: 10 ml Sodium Chloride (Sodium Chloride 0.9 % 10 Ml Vial.Pf) 10 ml INJECTION PRN PRN PRN Reason: Dilution Stop: 03/17/25 20:07 Last Admin: 03/19/24 09:10 Dose: 10 ml Sodium Chloride (Sodium Chloride 0.9 % 10 Ml Syringe) 10 ml IV-PUSH PRN PRN PRN Reason: Flush Stop: 03/17/25 20:07 Tramadol HCl (Tramadol 50 Mg Tablet) 50 mg PO Q6H PRN PRN Reason: Pain Scale 6 - 10 Stop: 09/14/24 01:43 Last Admin: 03/19/24 03:12 Dose: 50 mg Triamcinolone Acetonide (Triamcinolone 0.1% Cream 15 Gm Tube) 1 applic TOPICAL DAILY PRN PRN Reason: skin irritation Stop: 03/18/25 00:57 Vancomycin HCl (Vancomycin - Pharmacy Dosing 1 Each Miscell) 1 each IV ONCE PRN; Protocol PRN Reason: ZZ.Pharmacy Consult Vitamin B Complex/Vit C/Folic Acid (Folic Acid/Vit Bcomp,C 1 Tab Tablet) 1 tab PO DAILY [facility] Stop: 03/18/25 08:59 Last Admin: 03/18/24 22:30 Dose: 1 tab Zinc Gluconate (Zinc Gluconate 50 Mg Tablet) 50 mg PO DAILY [facility] Stop: 03/18/25 08:59 Last Admin: 03/18/24 22:31 Dose: 50 mg A&P - Infectious Disease Assessment/Plan (1) Chronic abdominal wound infection: Qualifiers: Encounter type: initial encounter Qualified Code(s): S31.109A - Unspecified open wound of abdominalwall, unspecified quadrant without penetration into peritoneal cavity, initial encounter; L08.9 - Local infection of the skin and subcutaneous tissue, unspecified (2) Type 2 diabetes mellitus with diabetic chronic kidney disease: Plan Debridement planned for later today. Blood cultures negative at 1 day. Superficial wound cultures pending. Empiric vancomycin and meropenem to continue. Documented By: Antonio Jenkins MD 03/19/24946 Signed By: <Electronically signed by MD Antonio Jenkins> 03/19/2448 [facility] Work Phone: 1(415) 257-440510-17-2024 Consult note Author Troy Moya [facility] March 18, 2024 4:27pmNote Date/TimeOct2023 4:[place] [address] General Surgery Consult Note Signed Patient: Mary Jane Suarez MR#: [id number] : 1970 Acct:[id number] Age/Sex: 53 / F Adm Date: 4 Loc: Room: [address] [place] [address] Type: ADM IN Attending Dr: Audra Wheat MD Copies to: MD Audra Hoang MD Pamela Sue Cramer, CNP~ History of Present Illness Date of consult: 03/18/2024 Requesting/Attending Provider: Audra Wheat MD History of present illness: The patient is a 53-year-old female who presents with a right lower abdominal wound. Wound started about 2 months ago after a spider bite. Patient has been having wound care performed at [facility]. Wound became worse and patient developed cellulitis and was admitted to the hospital whereshe underwent debridement as well as received IV antibiotics. More recently, patient was on negative pressure wound therapy. However, patient's wound started to become worse and developed an odor andthe patient ultimately was admitted here. CT scan showed:IMPRESSION: A wound is seen involving the right aspect of the patient's pannus with associated soft tissue gas.No collection is seen to suggest underlying abscess. No acute intra-abdominal process is seen. Patient is diabetic. She has a history of SVT. She has recently had a poor appetite. Review of Systems Constitutional Constitutional: Denies fever(s) Cardiovascular Cardiovascular: Denies chest pain Respiratory Respiratory: Denies dyspnea Gastrointestinal Gastrointestinal: Denies abdominal pain Comments: Decreased appetite Genitourinary Genitourinary: Denies difficulty voiding Integumentary/Breasts Skin/Breast: Reports wounds Neurologic Neurologic: Denies syncope [facility] Medical History Neuropathy DJD (degenerative joint disease) Arthritis SVT (supraventricular tachycardia) Hypothyroid Diabetes Surgical History History of back surgery Family History Father Heart disease Hypertension Diabetes Grandparent Heart disease Legacy FamHx Relation: Maternal Grand Father History of stroke Legacy FamHx Relation: Maternal Grand Father; Legacy FamHx Problem: Diagnosed with Stroke Legacy FamHx Relation: Maternal Grand Father Grandparent Legacy FamHx Relation: Maternal Grand Mother Heart disease Legacy FamHx Relation: Maternal Grand Mother Grandparent Motor vehicle accident Legacy FamHx Relation: Paternal Grand Father Legacy FamHx Relation: Paternal Grand Father Grandparent Legacy FamHx Relation: Paternal Grand Mother Heart disease Legacy FamHx Relation: Paternal Grand Mother Mother History of stroke Legacy FamHx Problem: Diagnosed with Stroke Hypertension Heart disease Diabetes Sister Family history of mental disorder Legacy FamHx Problem: Diagnosed with Mental Illness Social History Smoking Status: Never smoker Substance Use Type: None Allergies & Medications Medications and Allergies Allergies acetaminophen [Percocet] Allergy (Unknown, Verified 03/17/24 16:33) Unknown Reaction adhesive Allergy (Unknown, Verified 03/17/24 16:33) Rash aspirin Allergy (Unknown, Verified 03/17/24 16:33) Unknown Reaction azithromycin [Zithromax Z-Stalin] Allergy (Unknown, Verified 03/17/24 16:33) rash cefprozil [Cefzil] Allergy (Unknown, Verified 03/17/24 16:33) Unknown Reaction cephalexin Allergy (Unknown, Verified 03/17/24 16:33) Unknown Reaction Cephalosporins Allergy (Unknown, Verified 03/17/24 16:33) Hives ciprofloxacin Allergy (Unknown, Verified 03/17/24 16:33) Unknown moxifloxacin Allergy (Unknown, Verified 03/17/24 16:33) Hives oxycodone Allergy (Unknown, Verified 03/17/24 16:33) nausea penicillamine Allergy (Unknown, Verified 03/17/24 16:33) anaphylaxis Penicillins Allergy (Unknown, Verified 03/17/24 16:33) Unknown soy Allergy (Unknown, Verified 03/17/24 16:33) anaphylaxis sulfamethoxazole Allergy (Unknown, Verified 03/17/24 16:33) Anaphylaxis sulfanilamide Allergy (Unknown, Verified 03/17/24 16:33) Anaphylaxis trimethoprim Allergy (Unknown, Verified 03/17/24 16:33) Anaphylaxis BCise Allergy (Unknown, Uncoded 04/30/23 11:16) stomach upset Foam Tape Allergy (Unknown, Uncoded 10/09/23 14:20) Rash Home Medications Saccharomyces boulardii 250 mg capsule (Daily Probiotic (S. boulardii)) 250 mg PO BID 10/09/23 [History Confirmed 03/17/24] albuterol sulfate 2.5 mg/3 mL (0.083 %) solution for nebulization 2.5 mg inhalation Q6-8H PRN shortness of breath or wheezing 10/09/23 [History Confirmed 03/17/24] albuterol sulfate 90 mcg/actuation aerosol inhaler (Ventolin HFA) 2 puff inhalation Q4HR PRN shortness of breath or wheezing 10/09/23 [History Confirmed 03/17/24] allopurinol 300 mg tablet 1 tab PO DAILY 10/09/23 [History Confirmed 03/17/24] ascorbic acid (vitamin C) 250 mg tablet 250 mg PO DAILY 10/09/23 [History Confirmed 03/17/24] biotin 10 mg tablet 1 tab PO DAILY 10/09/23 [History Confirmed 03/17/24] budesonide-formoterol HFA 160 mcg-4.5 mcg/actuation aerosol inhaler (Symbicort) 2 puff inhalation BID 10/09/23 [History Confirmed 03/17/24] cinnamon bark 500 mg capsule (Cinnamon) 1,000 mg PO DAILY 10/09/23 [History Confirmed 03/17/24] cyclobenzaprine 10 mg tablet 10 mg PO QHS 10/09/23 [History Confirmed 03/17/24] docusate sodium 250 mg capsule 250 mg PO DAILY 10/09/23 [History Confirmed 03/17/24] dulaglutide 4.5 mg/0.5 mL subcutaneous pen injector (Trulicity) 4.5 mg subcut QWEEK 10/09/23 [History Confirmed 03/17/24] dupilumab 300 mg/2 mL subcutaneous pen injector 300 mg subcut Q2W 10/09/23 [History Confirmed 03/17/24] famotidine 20 mg tablet (Pepcid AC) 20 mg PO HS 10/09/23 [History Confirmed 03/17/24] fenofibrate 160 mg tablet 160 mg PO HS 10/09/23 [History Confirmed 03/17/24] ferrous sulfate 325 mg (65 mg iron) tablet (Feosol) 325 mg PO DAILY 10/09/23 [History Confirmed 03/17/24] fexofenadine 180 mg tablet 1 tab PO HS 10/09/23 [History Confirmed 03/17/24] fluticasone propionate 50 mcg/actuation nasal spray,suspension 2 spray intranasal DAILY 10/09/23 [History Confirmed 03/17/24] furosemide 40 mg tablet (Lasix) 40 mg PO BID 10/09/23 [History Confirmed 03/17/24] insulin regular hum U-500 conc 500 unit/mL subcutaneous soln 200 unit subcut Q3DPRN Uses with omnipod 10/09/23 [History Confirmed 03/17/24] krill 1,000 mg-omega-3 170 mg-dha 50 mg-epa 80 am-uylvog-cruwi capsule (krill oil) 1 cap PO BID 10/09/23 [History Confirmed 03/17/24] levothyroxine 175 mcg tablet 1 tab PO QAM 10/09/23 [History Confirmed 03/17/24] montelukast 10 mg tablet (Singulair) 1 tab PO DAILY 10/09/23 [History Confirmed 03/17/24] multivitamin with minerals-ferrous sulfate 4.5 mg iron tablet (One Daily Multivitamins with Minerals) 1 tab PO QDAY 10/09/23 [History Confirmed 03/17/24] pantoprazole 40 mg tablet,delayed release (Protonix) 1 tab PO BID 10/09/23 [History Confirmed 03/17/24] polydextrose 1.5 gram chewable tablet (Childrens Fiber Gummy Bear) 4 g PO QDAY 10/09/23 [History Confirmed 03/17/24] pregabalin 100 mg capsule (Lyrica) 100 mg PO TID 10/09/23 [History Confirmed 03/17/24] triamcinolone acetonide 0.1 % topical ointment 1 applic topical DAILY PRN skin irritation 10/09/23 [History Confirmed 03/17/24] vitamin B complex 1 tab PO DAILY 10/09/23 [History Confirmed 03/17/24] vitamin E (dl, acetate) 180 mg (400 unit) capsule 1 cap PO DAILY 10/09/23 [History Confirmed 03/17/24] zinc gluconate 50 mg tablet 1 tab PO DAILY 10/09/23 [History Confirmed 03/17/24] insulin pump cart,cont inf,BT (Omnipod Dash Pods (Gen 4) subcutaneous cartridge) 03/17/24 [History Confirmed 03/17/24] metoprolol tartrate 75 mg tablet 75 mg PO BID 03/17/24 [History Confirmed 03/17/24] Active Medications Acetaminophen (Acetaminophen 500 Mg Tablet) 1,000 mg PO Q6H PRN PRN Reason: Fever or Pain Stop: 03/18/25 01:43 Last Admin: 03/18/24 01:56 Dose: 1,000 mg Albuterol (Albuterol Neb 2.5 Mg/3 Ml Vial.Neb) 2.5 mg INHALATION Q6HR PRN PRN Reason: shortness of breath or wheezing Stop: 03/17/25 22:32 Albuterol (Albuterol Hfa 60 Puff/8 Gram Inhaler) 2 puff INHALATION Q4HR PRN PRN Reason: shortness of breath or wheezing Stop: 03/17/25 22:32 Allopurinol (Allopurinol 300 Mg Tablet) 300 mg PO DAILY JONATHAN Stop: 03/18/25 08:59 Last Admin: 03/18/24 10:18 Dose: Not Given Ascorbic Acid (Ascorbic Acid 500 Mg Tablet) 250 mg PO DAILY [facility]ATHAN Stop: 03/18/25 08:59 Budesonide/Formoterol Fumarate (Budesonide/Formoterol 160-4.5 Mcg 60 Puff/6 Gm Hfa.Aer.Ad) 2 puff INHALATION BID JONATHAN Stop: 03/18/25 08:59 Last Admin: 03/18/24 09:12 Dose: 2 puff Cyclobenzaprine HCl (Cyclobenzaprine 10 Mg Tablet) 10 mg PO QHS JONATHAN Stop: 03/18/25 21:59 Dextrose (Dextrose 50% In Water 25 Gm/50 Ml Syringe) 15 gm IV-PUSH TID.AC.HS.2APRN PRN Reason: Blood Glucose <120 mg/dL Stop: 03/17/25 23:35 Dextrose (Dextrose 50% In Water 25 Gm/50 Ml Syringe) 25 gm IV-PUSH TID.AC.HS.2APRN PRN Reason: Blood Glucose <100 mg/dL Stop: 03/17/25 23:35 Docusate Sodium (Docusate 100 Mg Capsule) 200 mg PO DAILY [facility]ONATHAN Stop: 03/18/25 08:59 Dupilumab (Dupilumab 300 Mg/2 Ml Pen.Injctr) 300 mg SUBCUT Q2W [facility]ATHAN Stop: 03/21/25 08:59 Famotidine (Famotidine 20 Mg Tablet) 20 mg PO HS JONATHAN Stop: 03/18/25 21:59 Fenofibrate (Fenofibrate Nanocrystallized 145 Mg Tablet) 145 mg PO HS JONATHAN Stop: 03/18/25 21:59 Ferrous Sulfate (Ferrous Sulfate 324 Mg Tablet.Dr) 324 mg PO DAILY JONATHAN Stop: 03/18/25 08:59 Fluticasone Propionate (Fluticasone Propionate [place] 120 [place]/16 Gm Bottle) 2 spray INTRANASAL DAILY JONATHAN Stop: 03/18/25 08:59 Furosemide (Furosemide 40 Mg Tablet) 40 mg PO BID@0800,1600 JONATHAN Stop: 03/18/25 07:59 Last Admin: 03/18/24 10:18 Dose: Not Given Glucose (Dextrose 40% Gel 15 Gm Tube) 30 gm PO TID.AC.HS.2A PRN PRN Reason: Blood Glucose <100 mg/dL Stop: 03/17/25 23:35 Glucose (Dextrose 40% Gel 15 Gm Tube) 15 gm PO TID.AC.HS.2A PRN PRN Reason: Blood Glucose <120 mg/dL Stop: 03/17/25 23:35 Meropenem (Merrem) 1 gm in 100 mls @ 200 mls/hr IV Q8H [facility] Last Admin: 03/18/24 14:09 Dose: 200 mls/hr Vancomycin HCl 1.25 gm/ (Dextrose) 275 mls @ 183.333 mls/hr IV Q12H [facility] Stop: 03/18/25 06:29 Last Admin: 03/18/24 06:06 Dose: 183.33 mls/hr Insulin Human Regular (Insulin Regular U-500, Human 1,500 Unit/3 Ml Insuln.Pen) 0 unit SUBCUT TID.AC.HS.2A [facility]; Protocol Stop: 03/18/25 01:59 Last Admin: 03/18/24 12:01 Dose: 10 unit Levothyroxine Sodium (Levothyroxine 100 Mcg Tablet) 100 mcg PO DAILY@0630 [facility] Stop: 03/18/25 06:29 Last Admin: 03/18/24 06:04 Dose: 100 mcg Levothyroxine Sodium (Levothyroxine 75 Mcg Tablet) 75 mcg PO DAILY@0630 [facility] Stop: 03/18/25 06:29 Last Admin: 03/18/24 06:04 Dose: 75 mcg Loratadine (Loratadine 10 Mg Tablet) 10 mg PO [facility] Stop: 03/18/25 21:59 Metoprolol Tartrate (Metoprolol Tartrate 25 Mg Tablet) 75 mg PO BID [facility] Stop: 03/18/25 08:59 Last Admin: 03/18/24 08:44 Dose: 75 mg Montelukast Sodium (Montelukast 10 Mg Tablet) 10 mg PO [facility] Stop: 03/18/25 21:59 Multivitamins (Multivitamin 1 Tab Tablet) 1 tab PO DAILY [facility] Stop: 03/18/25 08:59 Trulicity ( Dulaglutide) 4.5 Mg/0.5 Ml Pen Injector 4.5 mg SUBCUT Morrison@0900 [facility] Stop: 03/21/25 08:59 Pom- Insulin Regular Hum U-500 Conc 500 Unit/Ml Solution) 200 unit SUBCUT Q3D PRN PRN Reason: Uses with omnipod Stop: 03/17/25 22:32 Pantoprazole Sodium (Pantoprazole 40 Mg Vial) 40 mg IV-PUSH DAILY JONATHAN Stop: 03/18/25 08:59 Last Admin: 03/18/24 10:21 Dose: 40 mg Saccharomyces Boulardii (Saccharomyces Boulardii 250 Mg Capsule) 250 mg PO BID JONATHAN Stop: 03/18/25 08:59 Last Admin: 03/18/24 10:22 Dose: Not Given Sodium Chloride (Sodium Chloride 0.9 % 10 Ml Syringe) 0 ml IV-PUSH PRN PRN PRN Reason: Flush Stop: 03/17/25 16:31 Last Admin: 03/17/24 17:45 Dose: 10 ml Sodium Chloride (Sodium Chloride 0.9 % 10 Ml Vial.Pf) 10 ml INJECTION PRN PRN PRN Reason: Dilution Stop: 03/17/25 20:07 Last Admin: 03/18/24 10:21 Dose: 10 ml Sodium Chloride (Sodium Chloride 0.9 % 10 Ml Syringe) 10 ml IV-PUSH PRN PRN PRN Reason: Flush Stop: 03/17/25 20:07 Tramadol HCl (Tramadol 50 Mg Tablet) 50 mg PO Q6H PRN PRN Reason: Pain Scale 6 - 10 Stop: 09/14/24 01:43 Triamcinolone Acetonide (Triamcinolone 0.1% Cream 15 Gm Tube) 1 applic TOPICAL DAILY PRN PRN Reason: skin irritation Stop: 03/18/25 00:57 Vancomycin HCl (Vancomycin - Pharmacy Dosing 1 Each Miscell) 1 each IV ONCE PRN; Protocol PRN Reason: ZZ.Pharmacy Consult Vitamin B Complex/Vit C/Folic Acid (Folic Acid/Vit Bcomp,C 1 Tab Tablet) 1 tab PO DAILY [facility] Stop: 03/18/25 08:59 Zinc Gluconate (Zinc Gluconate 50 Mg Tablet) 50 mg PO DAILY [facility] Stop: 03/18/25 08:59 Exam Physical Exam Vital Signs: Temp Pulse Resp BP Pulse Ox O2 Del Method 98.0 F 78 18 134/72 98 Room Air 03/18/24 12:00 03/18/24 12:00 03/18/24 12:00 03/18/24 12:00 03/18/24 12:00 03/18/24 12:00 Const General: cooperative and no acute distress Orientation: alert HEENT Head: atraumatic Eyes Sclera: sclerae normal (anicteric) Resp Auscultation: clear to auscultation bilaterally Cardio Rate: regular rate Rhythm: regular rhythm GI Palpation: soft Skin Other: In the right lower abdomen, there is a large open wound with necrotic tissue andsurrounding induration. There is moderate amount of drainage. Neuro General: patient alert and patient awake Results - Gen. Surgery Pain Assessment Abdomen: Pain Description: Dull and Aching Pain Intensity: 9 Intake and Output 24 hour I&O: Intake & Output 03/18/24 03/18/24 03/18/24 07:59 15:59 23:59 Intake Total 500 / 500 Balance 500 / 500 Weight 120.1 kg Labs 03/18/24 06:48 03/18/24 06:48 Laboratory Results - last 72 hr 03/18/24 11:59: POC Glucose 255 03/18/24 06:48: TSH 3rd Generation Cancelled 03/18/24 06:48: Folate Cancelled, TSH 3rd Generation 8.44 H 03/18/24 06:48: Vitamin B12 Cancelled, Folate 23.0 03/18/24 06:48: Ferritin Cancelled, Total Bilirubin 0.6, AST 18, ALT 10, Alkaline Phosphatase 46, Total Protein 5.7 L, Albumin 2.8 L, Globulin 2.9, Albumin/Globulin Ratio 1.0, Vitamin B12 620 03/18/24 06:48: Transferrin Cancelled, Ferritin 491.1 H 03/18/24 06:48: Iron Saturation Cancelled, Transferrin 150 L 03/18/24 06:48: TIBC Cancelled, Iron Saturation 11.0 L 03/18/24 06:48: Iron Cancelled, TIBC 210 L 03/18/24 06:48: Corrected WBC 4.9, Uncorrected WBC Count 4.9, RBC 3.08 L, Hgb 9.3 L, Hct 27.9 L, MCV 90.6, MCH 30.1, MCHC 33.2, RDW 14.6, Plt Count 177 D, MPV 10.1, Neut % (Auto) 53.5, Lymph % (Auto)28.4, Jasper % (Auto) 11.9, Eos % (Auto) 5.2, Baso % (Auto) 1.0, Nucleat RBC Rel Count 0.1, Neut # (Auto) 2.6, Lymph # (Auto) 1.4, Jasper # (Auto) 0.6, Eos # (Auto) 0.3, Baso # (Auto) 0.0, PHA CreatinineClear 105.91, Sodium 141, Potassium 3.9, Chloride 108 H, Carbon Dioxide 25.8, Anion Gap 11.1, BUN 14, Creatinine 0.74, Est GFR (CKD-EPI) > 60.0,Glucose 186 H, Calcium 8.2 L, Phosphorus 3.9, Magnesium 1.6 L, Iron 23 L 03/18/24 01:53: POC Glucose 134 03/17/24 17:43: Corrected WBC 6.1, Uncorrected WBC Count 6.1, RBC 3.45 L, Hgb 10.4 L, Hct 31.6 L, MCV 91.5, MCH 30.2, MCHC 33.0, RDW 14.9, Plt Count 227, MPV 10.5, Neut % (Auto) 62.3, Lymph % (Auto) 24.8, Jasper % (Auto) 9.2, Eos % (Auto) 2.9, Baso % (Auto) 0.8, Nucleat RBC Rel Count 0.1, Neut # (Auto) 3.8, Lymph # (Auto) 1.5, Jasper # (Auto) 0.6, Eos # (Auto) 0.2, Baso # (Auto) 0.1, Monocyte Dist Width 22.55 H, ESR 114 H, PHA Creatinine Clear 96.21, Sodium 143, Potassium3.7, Chloride 109 H, CarbonDioxide 22.6, Anion Gap 15.1 H, BUN 19, Creatinine 0.81, Est GFR (CKD-EPI) > 60.0, Glucose 132 H, Lactic Acid 1.9, Calcium 8.5 L, Total Bilirubin 0.6, AST 23, ALT 12, Alkaline Phosphatase 51, C-Reactive Prot, Quant 9.0 H, Total Protein 6.6, Albumin 3.2 L, Globulin 3.4, Albumin/Globulin Ratio 0.9 A&P - General Surgery (1) Chronic abdominal wound infection: Qualifiers: Encounter type: initial encounter Qualified Code(s): S31.109A - Unspecified open wound of abdominalwall, unspecified quadrant without penetration into peritoneal cavity, initial encounter; L08.9 - Local infection of the skin and subcutaneous tissue, unspecified (2) Type 2 diabetes mellitus with diabetic chronic kidney disease: Plan Plan will be to debride the abdominal wound. The procedure, benefits, risks including risks of bleeding, infection, wound healing problems discussed. Tissue culture can be sent. When the wound bed isclean and viable without necrotic tissue, we can consider resuming negative pressure wound therapy. Patient would like to follow at the [facility] [place] [facility] [place]. Documented By: Troy Moya MD 03/18/249 Signed By: <Electronically signed by MD Troy Moya> 03/18/24 1626 [facility] Work Phone: 1(816) 794-545610-17-2024 Progress note Author Audra Wheat [facility] March 18, 2024 11:16amNote Date/TimeOct2023 11:16[place] [address] Hospitalist Progress Note Signed Patient: Mary Jane Suarez MR#: [id number] : 1970 Acct:[id number] Age/Sex: 53 / F Adm Date: 4 Loc: Room: [address] [place] [address] Type: ADM IN Attending Dr: Audra Wheat MD Copies to: ~ Date of Service: 03/18/2024 Subjective Subjective Narrative: Patient seen examined bedside. No events overnight. Patient has no fever or chills. She is hemodynamically the patient is on the negative side. She is pleasant cooperative. Wound care nurse and ID were at bedside. Labs reviewed. Exam Physical Exam Vital Signs: Temp Pulse Resp BP Pulse Ox O2 Del Method 97.6 F 77 14 128/69 97 Room Air 03/18/24 07:49 03/18/24 07:49 03/18/24 07:49 03/18/24 07:49 03/18/24 07:49 03/18/24 08:08 Narrative: General: Appears comfortable and not in distress, lying in bed, cooperative, calm, and pleasant, morbidly obese HEENT: No thyromegaly, no lymphadenopathy, EOMI, PERRLA, neck is supple Heart: normal S1 and S2, no murmurs, regular normal rate Lung: Bilateral air entry, no wheezing or crackles, pt is not in any respiratorydistress Abdomen/Skin : Soft, positive bowel sounds, she does have a large abdominal wound iinvolving her right lower quadrant abdomnial wall, involving the adipose tissue, not clear if there is involvement of muscles, surrounded by areas of induration and erythema involving the skin folds in the area. There is foul smelling odor and signs of necrotic tissue in the wound area. 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 WORKER: Awake,Alert, following simple command, no focal sensory or motor deficits Psychiatric: Cooperative, normal mood and affect Objective Lab Results 03/18/24 06:48 03/18/24 06:48 Meds Allergies and Active Meds Allergies acetaminophen [Percocet] Allergy (Unknown, Verified 03/17/24 16:33) Unknown Reaction adhesive Allergy (Unknown, Verified 03/17/24 16:33) Rash aspirin Allergy (Unknown, Verified 03/17/24 16:33) Unknown Reaction azithromycin [Zithromax Z-Stalin] Allergy (Unknown, Verified 03/17/24 16:33) rash cefprozil [Cefzil] Allergy (Unknown, Verified 03/17/24 16:33) Unknown Reaction cephalexin Allergy (Unknown, Verified 03/17/24 16:33) Unknown Reaction Cephalosporins Allergy (Unknown, Verified 03/17/24 16:33) Hives ciprofloxacin Allergy (Unknown, Verified 03/17/24 16:33) Unknown moxifloxacin Allergy (Unknown, Verified 03/17/24 16:33) Hives oxycodone Allergy (Unknown, Verified 03/17/24 16:33) nausea penicillamine Allergy (Unknown, Verified 03/17/24 16:33) anaphylaxis Penicillins Allergy (Unknown, Verified 03/17/24 16:33) Unknown soy Allergy (Unknown, Verified 03/17/24 16:33) anaphylaxis sulfamethoxazole Allergy (Unknown, Verified 03/17/24 16:33) Anaphylaxis sulfanilamide Allergy (Unknown, Verified 03/17/24 16:33) Anaphylaxis trimethoprim Allergy (Unknown, Verified 03/17/24 16:33) Anaphylaxis BCise Allergy (Unknown, Uncoded 04/30/23 11:16) stomach upset Foam Tape Allergy (Unknown, Uncoded 10/09/23 14:20) Rash Active Meds: Active Medications Generic Name Dose Route Start Last Admin Trade Name Freq PRN Reason Stop Dose Admin Acetaminophen 1,000 mg 03/18/24 01:44 03/18/24 01:56 Acetaminophen 500 Mg Tablet PO 03/18/25 01:43 1,000 mg Q6H PRN Administration Fever or Pain Albuterol 2.5 mg 03/17/24 22:33 Albuterol Neb 2.5 Mg/3 Ml Vial.Neb INHALATION 03/17/25 22:32 Q6HR PRN shortness of breath or wheezing Albuterol 2 puff 03/17/24 22:33 Albuterol Hfa 60 Puff/8 Gram Inhaler INHALATION 03/17/25 22:32 Q4HR PRN shortness of breath or wheezing Allopurinol 300 mg 03/18/24 09:00 03/18/24 10:18 Allopurinol 300 Mg Tablet PO 03/18/25 08:59 Not Given DAILY JONATHAN Ascorbic Acid 250 mg 03/18/24 09:00 Ascorbic Acid 500 Mg Tablet PO 03/18/25 08:59 DAILY JONATHAN Budesonide/Formoterol Fumarate 2 puff 03/18/24 09:00 03/18/24 09:12 Budesonide/Formoterol 160-4.5 Mcg 60 Puff/6 Gm Hfa.Aer.Ad INHALATION 03/18/25 08:59 2 puff BID JONATHAN Administration Cyclobenzaprine HCl 10 mg 03/18/24 22:00 Cyclobenzaprine 10 Mg Tablet PO 03/18/25 21:59 QHS JONATHAN Dextrose 15 gm 03/17/24 23:36 Dextrose 50% In Water 25 Gm/50 Ml Syringe IV-PUSH 03/17/25 23:35 TID.AC.HS.2A PRN Blood Glucose <120 mg/dL Dextrose 25 gm 03/17/24 23:36 Dextrose 50% In Water 25 Gm/50 Ml Syringe IV-PUSH 03/17/25 23:35 TID.AC.HS.2A PRN Blood Glucose <100 mg/dL Docusate Sodium 200 mg 03/18/24 09:00 Docusate 100 Mg Capsule PO 03/18/25 08:59 DAILY JONATHAN Dupilumab 300 mg 03/21/24 09:00 Dupilumab 300 Mg/2 Ml Pen.Injctr SUBCUT 03/21/25 08:59 Q2W JONATHAN Famotidine 20 mg 03/18/24 22:00 Famotidine 20 Mg Tablet PO 03/18/25 21:59 HS JONATHAN Fenofibrate 145 mg 03/18/24 22:00 Fenofibrate Nanocrystallized 145 Mg Tablet PO 03/18/25 21:59 HS JONATHAN Ferrous Sulfate 324 mg 03/18/24 09:00 Ferrous Sulfate 324 Mg Tablet.Dr PO 03/18/25 08:59 DAILY JONATHAN Fluticasone Propionate 2 spray 03/18/24 09:00 Fluticasone Propionate [place] 120 [place]/16 Gm Bottle INTRANASAL 03/18/25 08:59 DAILY JONATHAN Furosemide 40 mg 03/18/24 08:00 03/18/24 10:18 Furosemide 40 Mg Tablet PO 03/18/25 07:59 Not Given BID@0800,1600 [facility] Glucose 30 gm 03/17/24 23:36 Dextrose 40% Gel 15 Gm Tube PO 03/17/25 23:35 TID.AC.HS.2A PRN Blood Glucose <100 mg/dL Glucose 15 gm 03/17/24 23:36 Dextrose 40% Gel 15 Gm Tube PO 03/17/25 23:35 TID.AC.HS.2A PRN Blood Glucose <120 mg/dL Meropenem 1 gm in 100 mls @ 200 mls/hr 03/17/24 21:00 03/18/24 05:21 Merrem IV 200 mls/hr Q8H JONATHAN Administration Vancomycin HCl 1.25 gm/ 275 mls @ 183.333 mls/hr 03/18/24 06:30 03/18/24 06:06 Dextrose IV 03/18/25 06:29 183.33 mls/hr Q12H JONATHAN Administration Insulin Human Regular 0 unit 03/18/24 02:00 03/18/24 08:46 Insulin Regular U-500, Human 1,500 Unit/3 Ml Insuln.Pen SUBCUT 03/18/25 01:59 5 unit TID.AC.HS.2A JONATHAN Administration Protocol Levothyroxine Sodium 100 mcg 03/18/24 06:30 03/18/24 06:04 Levothyroxine 100 Mcg Tablet PO 03/18/25 06:29 100 mcg DAILY@0630 JONATHAN Administration Levothyroxine Sodium 75 mcg 03/18/24 06:30 03/18/24 06:04 Levothyroxine 75 Mcg Tablet PO 03/18/25 06:29 75 mcg DAILY@0630 JONATHAN Administration Loratadine 10 mg 03/18/24 22:00 Loratadine 10 Mg Tablet PO 03/18/25 21:59 HS [facility] Metoprolol Tartrate 75 mg 03/18/24 09:00 03/18/24 08:44 Metoprolol Tartrate 25 Mg Tablet PO 03/18/25 08:59 75 mg BID JONATHAN Administration Montelukast Sodium 10 mg 03/18/24 22:00 Montelukast 10 Mg Tablet PO 03/18/25 21:59 HS [facility] Multivitamins 1 tab 03/18/24 09:00 Multivitamin 1 Tab Tablet PO 03/18/25 08:59 DAILY JONATHAN Trulicity ( 4.5 mg 03/21/24 09:00 Dulaglutide) 4.5 Mg/ SUBCUT 03/21/25 08:59 0.5 Ml Pen Injector Morrison@0900 [facility] Pom- Insulin Regular 200 unit 03/17/24 22:33 Hum U-500 Conc 500 SUBCUT 03/17/25 22:32 Unit/Ml Solution) Q3D PRN Uses with omnipod Pantoprazole Sodium 40 mg 03/18/24 09:00 03/18/24 10:21 Pantoprazole 40 Mg Vial IV-PUSH 03/18/25 08:59 40 mg DAILY JONATHAN Administration Saccharomyces Boulardii 250 mg 03/18/24 09:00 03/18/24 10:22 Saccharomyces Boulardii 250 Mg Capsule PO 03/18/25 08:59 Not Given BID JONATHAN Sodium Chloride 0 ml 03/17/24 16:32 03/17/24 17:45 Sodium Chloride 0.9 % 10 Ml Syringe IV-PUSH 03/17/25 16:31 10 ml PRN PRN Administration Flush Sodium Chloride 10 ml 03/17/24 20:08 03/18/24 10:21 Sodium Chloride 0.9 % 10 Ml Vial.Pf INJECTION 03/17/25 20:07 10 ml PRN PRN Administration Dilution Sodium Chloride 10 ml 03/17/24 20:08 Sodium Chloride 0.9 % 10 Ml Syringe IV-PUSH 03/17/25 20:07 PRN PRN Flush Tramadol HCl 50 mg 03/18/24 01:44 Tramadol 50 Mg Tablet PO 09/14/24 01:43 Q6H PRN Pain Scale 6 - 10 Triamcinolone Acetonide 1 applic 03/18/24 00:58 Triamcinolone 0.1% Cream 15 Gm Tube TOPICAL 03/18/25 00:57 DAILY PRN skin irritation Vancomycin HCl 1 each 03/17/24 20:08 Vancomycin - Pharmacy Dosing 1 Each Miscell IV ONCE PRN ZZ.Pharmacy Consult Protocol Vitamin B Complex/Vit C/Folic Acid 1 tab 03/18/24 09:00 Folic Acid/Vit Bcomp,C 1 Tab Tablet PO 03/18/25 08:59 DAILY JONATHAN Zinc Gluconate 50 mg 03/18/24 09:00 Zinc Gluconate 50 Mg Tablet PO 03/18/25 08:59 DAILY JONATHAN A&P - Hospitalist Assessment/Plan (1) Abscess: (2) Hyperlipidemia: (3) Type 2 diabetes mellitus with diabetic chronic kidney disease: (4) CKD (chronic kidney disease) stage 3, GFR 30-59 ml/min: (5) Hypoparathyroidism: (6) Hyperuricemia: Plan Large Abdominal wall/skin Necrotic wound infection Poor wound healing given morbid obesity and Immunocompromised state from pt's Type 2 Diabetes Rule out Calciphylaxis Normocytic Anemia, likely in the setting of chronic inflammation -Labs reviewed, were unremarkable, ID consulted, appreciate their recs -Continue vancomycin IV and meropenem IV, to be dosed by pharmacy -Obtain ID consult -CT abdomen pelvis results reviewed -Pt is NPO, pending general surgery recs -SCDs for DVT prophylaxis given her anemia -Pantoprazole IV 40 mg daily for GI prophylaxis -PT eval -Ambulate as tolerated -Wound care eval Time Spent With Patient (min): 45 Documented By: Audra Wheat MD 03/18/241112 Signed By: <Electronically signed by Audra Wheat MD> 03/18/241115 [facility] Work Phone: 1(127) 670-616710-17-2024 History and physical note Author Audra Wheat [facility] March 18, 2024 11:13amNote Date/TimeOctober 2023 8:12[place] [address] Hospitalist H&P Signed Patient: Mary Jane Suarez MR#: [id number] : 1970 Acct:[id number] Age/Sex: 53 / F Adm Date: 4 Loc: Room: [address] [place] [address] Type: ADM IN Attending Dr: Audra Wheat MD Copies to: MD Ann Meraz, MEDICAL PSYCHOTHERAPIST~ HPI DATE OF EXAMINATION: 03/17/24 CHIEF COMPLAINT: Abdominal skin wound HISTORY OF PRESENT ILLNESS: This is a 53-year-old female with past medical history of CKD stage III, type 2 diabetes, hypertension, iron deficiency anemia, morbid obesity, asthma, who presents today to the ED for worsening abdominal wall wound. History obtained from the ED staff and the patient at bedside. She was seen in theED yesterday for worsening right sided abdominal wall wound on the concern was for I&D, she wasfound to have early abscess in the right thigh and was placed on the Vibramycin and was discharged home. She returns today stating that the wound isgetting worse and spasmatic. Back to December patientwas bit by a [place] spider and since then she was complaining of fever on and off, anorexia and worsening skin lesion, 3 weeks later she saw her PCP who started on Levaquin and doxycycline given her extensive allergies to the medications. Patient continued not to improve and actually wound was getting worse and she was seen in [facility] for 2 times, was sent home on doxycycline, states that she had 5 rounds doxycycline so far. Until she was referred to the wound care services at [place], when the recommended her to go to the ER. Patient was seen in the [facility] and was admitted there for IV antibiotics, she remembers takingmeropenem. He was discharged on February 27 with no p.o. antibiotics. Since then patient was reporting fever on and off with a Tmax of 100.5 as well as chills and anorexia. She denies any nausea or vomiting. Here in the ED, patient had chemistry that was not significant for renal standpoint, but did have elevated CRP of 9. Her ESR is pending. Her CBC showedhemoglobin 10.4 with MCV of 91.5, acute drop from 14.1 on October 2023. Her wound was clearly necrotic and foul-smelling. She was hypertensive did not have feverand heart rate and pulse was normal. In the ED patient received IV meropenem once and IV vancomycin once. And blood cultures ordered. Patient is frustratedand states that she needs a solutionfor this, she needs this to be fixed . Ianswered her questions. Patient will be admitted for further workup and management. She will need IV antibiotics given her extensive failure of p.o. and IV antibiotics before. Review of Systems Review of Systems All other systems reviewed & are negative unless noted below or in HPI [facility] Medical History Neuropathy DJD (degenerative joint disease) Arthritis SVT (supraventricular tachycardia) Hypothyroid Diabetes Surgical History History of back surgery Family History Father Heart disease Hypertension Diabetes Grandparent Heart disease Legacy FamHx Relation: Maternal Grand Father History of stroke Legacy FamHx Relation: Maternal Grand Father; Legacy FamHx Problem: Diagnosed with Stroke Legacy FamHx Relation: Maternal Grand Father Grandparent Legacy FamHx Relation: Maternal Grand Mother Heart disease Legacy FamHx Relation: Maternal Grand Mother Grandparent Motor vehicle accident Legacy FamHx Relation: Paternal Grand Father Legacy FamHx Relation: Paternal Grand Father Grandparent Legacy FamHx Relation: Paternal Grand Mother Heart disease Legacy FamHx Relation: Paternal Grand Mother Mother History of stroke Legacy FamHx Problem: Diagnosed with Stroke Hypertension Heart disease Diabetes Sister Family history of mental disorder Legacy FamHx Problem: Diagnosed with Mental Illness Social History Smoking Status: Never smoker Substance Use Type: Alcohol Meds Medications and Allergies Allergies acetaminophen [Percocet] Allergy (Unknown, Verified 03/17/24 16:33) Unknown Reaction adhesive Allergy (Unknown, Verified 03/17/24 16:33) Rash aspirin Allergy (Unknown, Verified 03/17/24 16:33) Unknown Reaction azithromycin [Zithromax Z-Satlin] Allergy (Unknown, Verified 03/17/24 16:33) rash cefprozil [Cefzil] Allergy (Unknown, Verified 03/17/24 16:33) Unknown Reaction cephalexin Allergy (Unknown, Verified 03/17/24 16:33) Unknown Reaction Cephalosporins Allergy (Unknown, Verified 03/17/24 16:33) Hives ciprofloxacin Allergy (Unknown, Verified 03/17/24 16:33) Unknown moxifloxacin Allergy (Unknown, Verified 03/17/24 16:33) Hives oxycodone Allergy (Unknown, Verified 03/17/24 16:33) nausea penicillamine Allergy (Unknown, Verified 03/17/24 16:33) anaphylaxis Penicillins Allergy (Unknown, Verified 03/17/24 16:33) Unknown soy Allergy (Unknown, Verified 03/17/24 16:33) anaphylaxis sulfamethoxazole Allergy (Unknown, Verified 03/17/24 16:33) Anaphylaxis sulfanilamide Allergy (Unknown, Verified 03/17/24 16:33) Anaphylaxis trimethoprim Allergy (Unknown, Verified 03/17/24 16:33) Anaphylaxis BCise Allergy (Unknown, Uncoded 04/30/23 11:16) stomach upset Foam Tape Allergy (Unknown, Uncoded 10/09/23 14:20) Rash Home Medications Saccharomyces boulardii 250 mg capsule (Daily Probiotic (S. boulardii)) 250 mg PO BID 10/09/23 [History Confirmed 03/17/24] albuterol sulfate 2.5 mg/3 mL (0.083 %) solution for nebulization 2.5 mg inhalation Q6-8H PRN shortness of breath or wheezing 10/09/23 [History Confirmed 03/17/24] albuterol sulfate 90 mcg/actuation aerosol inhaler (Ventolin HFA) 2 puff inhalation Q4HR PRN shortness of breath or wheezing 10/09/23 [History Confirmed 03/17/24] allopurinol 300 mg tablet 1 tab PO DAILY 10/09/23 [History Confirmed 03/17/24] ascorbic acid (vitamin C) 250 mg tablet 250 mg PO DAILY 10/09/23 [History Confirmed 03/17/24] biotin 10 mg tablet 1 tab PO DAILY 10/09/23 [History Confirmed 03/17/24] budesonide-formoterol HFA 160 mcg-4.5 mcg/actuation aerosol inhaler (Symbicort) 2 puff inhalation BID 10/09/23 [History Confirmed 03/17/24] cinnamon bark 500 mg capsule (Cinnamon) 1,000 mg PO DAILY 10/09/23 [History Confirmed 03/17/24] cyclobenzaprine 10 mg tablet 10 mg PO QHS 10/09/23 [History Confirmed 03/17/24] docusate sodium 250 mg capsule 250 mg PO DAILY 10/09/23 [History Confirmed 03/17/24] dulaglutide 4.5 mg/0.5 mL subcutaneous pen injector (Trulicity) 4.5 mg subcut QWEEK 10/09/23 [History Confirmed 03/17/24] dupilumab 300 mg/2 mL subcutaneous pen injector 300 mg subcut Q2W 10/09/23 [History Confirmed 03/17/24] famotidine 20 mg tablet (Pepcid AC) 20 mg PO HS 10/09/23 [History Confirmed 03/17/24] fenofibrate 160 mg tablet 160 mg PO HS 10/09/23 [History Confirmed 03/17/24] ferrous sulfate 325 mg (65 mg iron) tablet (Feosol) 325 mg PO DAILY 10/09/23 [History Confirmed 03/17/24] fexofenadine 180 mg tablet 1 tab PO HS 10/09/23 [History Confirmed 03/17/24] fluticasone propionate 50 mcg/actuation nasal spray,suspension 2 spray intranasal DAILY 10/09/23 [History Confirmed 03/17/24] furosemide 40 mg tablet (Lasix) 40 mg PO BID 10/09/23 [History Confirmed 03/17/24] insulin regular hum U-500 conc 500 unit/mL subcutaneous soln 200 unit subcut Q3DPRN Uses with omnipod 10/09/23 [History Confirmed 03/17/24] krill 1,000 mg-omega-3 170 mg-dha 50 mg-epa 80 dp-[id number]-[id number] capsule (krill oil) 1 cap PO BID 10/09/23 [History Confirmed 03/17/24] levothyroxine 175 mcg tablet 1 tab PO QAM 10/09/23 [History Confirmed 03/17/24] montelukast 10 mg tablet (Singulair) 1 tab PO DAILY 10/09/23 [History Confirmed 03/17/24] multivitamin with minerals-ferrous sulfate 4.5 mg iron tablet (One Daily Multivitamins with Minerals) 1 tab PO QDAY 10/09/23 [History Confirmed 03/17/24] pantoprazole 40 mg tablet,delayed release (Protonix) 1 tab PO BID 10/09/23 [History Confirmed 03/17/24] polydextrose 1.5 gram chewable tablet (Childrens Fiber Gummy Bear) 4 g PO QDAY 10/09/23 [History Confirmed 03/17/24] pregabalin 100 mg capsule (Lyrica) 100 mg PO TID 10/09/23 [History Confirmed 03/17/24] triamcinolone acetonide 0.1 % topical ointment 1 applic topical DAILY PRN skin irritation 10/09/23 [History Confirmed 03/17/24] vitamin B complex 1 tab PO DAILY 10/09/23 [History Confirmed 03/17/24] vitamin E (dl, acetate) 180 mg (400 unit) capsule 1 cap PO DAILY 10/09/23 [History Confirmed 03/17/24] zinc gluconate 50 mg tablet 1 tab PO DAILY 10/09/23 [History Confirmed 03/17/24] insulin pump cart,cont inf,BT (Omnipod Dash Pods (Gen 4) subcutaneous cartridge) 03/17/24 [History Confirmed 03/17/24] metoprolol tartrate 75 mg tablet 75 mg PO BID 03/17/24 [History Confirmed 03/17/24] Exam Physical Exam Vital Signs: Temp Pulse Resp BP Pulse Ox O2 Del Method 97.5 F L 81 22 176/75 H 99 Room Air 03/17/24 17:16 03/17/24 17:16 03/17/24 17:16 03/17/24 17:16 03/17/24 17:16 03/17/24 17:16 Narrative: General: Appears comfortable and not in distress, lying in bed, cooperative, calm, and pleasant, morbidly obese HEENT: No thyromegaly, no lymphadenopathy, EOMI, PERRLA, neck is supple Heart: normal S1 and S2, no murmurs, regular normal rate Lung: Bilateral air entry, no wheezing or crackles, pt is not in any respiratorydistress Abdomen/Skin : Soft, positive bowel sounds 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 WORKER: Awake,Alert, following simple command, no focal sensory or motor deficits Psychiatric: Cooperative, normal mood and affect Results - Hospitalist H&P Lab Results Labs: Laboratory Last Values Corrected WBC 6.1 X10E3/uL (3.8-11.6) 03/17/24 17:43 Uncorrected WBC Count 6.1 x10E3/uL (3.8-11.6) 03/17/24 17:43 RBC 3.45 X10E6/uL (3.60-5.00) L 03/17/24 17:43 Hgb 10.4 g/dL (11.8-15.4) L 03/17/24 17:43 Hct 31.6 % (34.0-46.4) L 03/17/24 17:43 MCV 91.5 fl (80-100) 03/17/24 17:43 MCH 30.2 pg (24.7-34.3) 03/17/24 17:43 MCHC 33.0 g/dL (32.0-35.0) 03/17/24 17:43 RDW 14.9 % (11.9-15.3) 03/17/24 17:43 Plt Count 227 x10E3/uL (150-450) 03/17/24 17:43 MPV 10.5 fl (6.3-10.7) 03/17/24 17:43 Neut % (Auto) 62.3 % (.) 03/17/24 17:43 Lymph % (Auto) 24.8 % (.) 03/17/24 17:43 [place] % (Auto) 9.2 % (.) 03/17/24 17:43 Eos % (Auto) 2.9 % (.) 03/17/24 17:43 Baso % (Auto) 0.8 % (.) 03/17/24 17:43 Nucleat RBC Rel Count 0.1 /100 WBC (0-0.5) 03/17/24 17:43 Neut # (Auto) 3.8 x10E3/uL (1.8-7.7) 03/17/24 17:43 Lymph # (Auto) 1.5 x10E3/uL (1.00-4.8) 03/17/24 17:43 [place] # (Auto) 0.6 x10E3/uL (0.0-0.8) 03/17/24 17:43 Eos # (Auto) 0.2 x10E3/uL (0.0-0.45) 03/17/24 17:43 Baso # (Auto) 0.1 x10E3/uL (0.0-0.2) 03/17/24 17:43 Monocyte Dist Width 22.55 % (0.00-20.00) H 03/17/24 17:43 PHA Creatinine Clear 96.21 03/17/24 17:43 Sodium 143 mmol/L (136-145) 03/17/24 17:43 Potassium 3.7 mmol/L (3.5-5.1) 03/17/24 17:43 Chloride 109 mmol/L (98-107) H 03/17/24 17:43 Carbon Dioxide 22.6 mmol/L (21.0-31.0) 03/17/24 17:43 Anion Gap 15.1 mEq/L (6.0-15.0) H 03/17/24 17:43 BUN 19 mg/dL (7-25) 03/17/24 17:43 Creatinine 0.81 mg/dL (0.60-1.20) 03/17/24 17:43 Est GFR (CKD-EPI) > 60.0 mL/Min 03/17/24 17:43 Glucose 132 mg/dL (70-100) H 03/17/24 17:43 Lactic Acid 1.9 mmol/L (0.5-2.2) 03/17/24 17:43 Calcium 8.5 mg/dL (8.6-10.3) L 03/17/24 17:43 Total Bilirubin 0.6 mg/dl (0.3-1.0) 03/17/24 17:43 AST 23 U/L (13-39) 03/17/24 17:43 ALT 12 U/L (7-52) 03/17/24 17:43 Alkaline Phosphatase 51 U/L (34-104) 03/17/24 17:43 C-Reactive Prot, Quant 9.0 mg/dL (0.0-0.5) H 03/17/24 17:43 Total Protein 6.6 gm/dL (6.4-8.9) 03/17/24 17:43 Albumin 3.2 gm/dL (3.5-5.7) L 03/17/24 17:43 Globulin 3.4 gm/dL 03/17/24 17:43 Albumin/Globulin Ratio 0.9 03/17/24 17:43 Assessment & Plan Assessment/Plan (1) Abscess: (2) Hyperlipidemia: (3) Type 2 diabetes mellitus with diabetic chronic kidney disease: (4) CKD (chronic kidney disease) stage 3, GFR 30-59 ml/min: (5) Hypoparathyroidism: (6) Hyperuricemia: Plan Large Abdominal wall/skin Necrotic wound infection Poor wound healing given morbid obesity and Immunocompromised state from pt's Type 2 Diabetes Normocytic Anemia -Pt presented with the above HPI, physical exam findings, lab imaging results, and ED course. -Admit patient to medical floor with telemetry -Start vancomycin IV and meropenem IV, to be dosed by pharmacy -Obtain ID consult -Asked ED to call GEN surgery for further recommendations -Follow ESR -Obtain CT abdomen pelvis without contrast -SCDs for DVT prophylaxis given her anemia -Pantoprazole IV 40 mg daily for GI prophylaxis -PT eval -Ambulate as tolerated -Wound care eval -N.p.o. as of midnight just in case surgery wants to do an intervention on her. -Patient would like to use her own insulin pump as she requires very high amountof premeal and long-acting insulin is not provide in the hospital Full code I discussed the plan of plan with the patient in details. I answered her questions and addressed her concerns. I promised to do my best to help her feelbetter IP vs OBS Justification Based on differential dx, clinical care plan, and risk of adverse events, if untreated, in my clinical judgement this patient requires an acute care setting as: INPATIENT because of an expectation ofan over 2 midnight stay. Estimated length of stay (# of days): 4 Documented By: Audra Wheat MD 03/17/241955 Signed By: <Electronically signed by Audra Wheat MD> 03/18/24 [facility] Work Phone: 1(692) 681-916310-17-2024 Consult note Author Antonio Jenkins [facility] March 18, 2024 9:43amNote Date/TimeOct2023 9:37[place] [id number] Infect. Disease Consult Note Signed Patient: Mary Jane Suarez MR#: [id number] : 1970 Acct:[id number] Age/Sex: 53 / F Adm Date: 4 Loc: Room: [address] [place] [address] Type: ADM IN Attending Dr: Audra Wheat MD Copies to: MD Audra Mcmanus MD Pamela Sue Cramer, MEDICAL PSYCHOTHERAPIST~ HPI Data of Consult Consult date: 03/18/24 Requesting Physician: Audra Wheat MD Primary Care Provider: Ann Fournier, TRUCKING SUPERVISOR-C Consult Narrative History of present illness: Ms. Suarez is a 53 year old female and type 2 diabetes who states she got [facility]. She states she saw the spider and that is when she developed the necrotic right lower quadrant abdominal skin lesions. She had had a debrided [facility]. She had a wound VAC in place. She states when she was sent home she was not given antibiotics. But it is documented from the H&P perhaps she was given meropenem. This was while she wasin the hospital. She states when the nurse took off the VAC yesterday it was grossly infected. General surgery is consulted as well as myself. Patient has been getting fevers and chills. CC: Audra Wheat MD [facility] Medical History Neuropathy DJD (degenerative joint disease) Arthritis SVT (supraventricular tachycardia) Hypothyroid Diabetes Surgical History History of back surgery Family History Father Heart disease Hypertension Diabetes Grandparent Heart disease Legacy FamHx Relation: Maternal Grand Father History of stroke Legacy FamHx Relation: Maternal Grand Father; Legacy FamHx Problem: Diagnosed with Stroke Legacy FamHx Relation: Maternal Grand Father Grandparent Legacy FamHx Relation: Maternal Grand Mother Heart disease Legacy FamHx Relation: Maternal Grand Mother Grandparent Motor vehicle accident Legacy FamHx Relation: Paternal Grand Father Legacy FamHx Relation: Paternal Grand Father Grandparent Legacy FamHx Relation: Paternal Grand Mother Heart disease Legacy FamHx Relation: Paternal Grand Mother Mother History of stroke [facility] Famx Problem: Diagnosed with Stroke Hypertension Heart disease Diabetes Sister [facility]: Diagnosed with Mental Illness Social History Smoking Status: Never smoker Substance Use Type: None Allergies and Medications Allergies and Active Meds Allergies acetaminophen [Percocet] Allergy (Unknown, Verified 03/17/24 16:33) Unknown Reaction adhesive Allergy (Unknown, Verified 03/17/24 16:33) Rash aspirin Allergy (Unknown, Verified 03/17/24 16:33) Unknown Reaction azithromycin [Zithromax Z-Stalin] Allergy (Unknown, Verified 03/17/24 16:33) rash cefprozil [Cefzil] Allergy (Unknown, Verified 03/17/24 16:33) Unknown Reaction cephalexin Allergy (Unknown, Verified 03/17/24 16:33) Unknown Reaction Cephalosporins Allergy (Unknown, Verified 03/17/24 16:33) Hives ciprofloxacin Allergy (Unknown, Verified 03/17/24 16:33) Unknown moxifloxacin Allergy (Unknown, Verified 03/17/24 16:33) Hives oxycodone Allergy (Unknown, Verified 03/17/24 16:33) nausea penicillamine Allergy (Unknown, Verified 03/17/24 16:33) anaphylaxis Penicillins Allergy (Unknown, Verified 03/17/24 16:33) Unknown soy Allergy (Unknown, Verified 03/17/24 16:33) anaphylaxis sulfamethoxazole Allergy (Unknown, Verified 03/17/24 16:33) Anaphylaxis sulfanilamide Allergy (Unknown, Verified 03/17/24 16:33) Anaphylaxis trimethoprim Allergy (Unknown, Verified 03/17/24 16:33) Anaphylaxis BCise Allergy (Unknown, Uncoded 04/30/23 11:16) stomach upset Foam Tape Allergy (Unknown, Uncoded 10/09/23 14:20) Rash Active Medications Acetaminophen (Acetaminophen 500 Mg Tablet) 1,000 mg PO Q6H PRN PRN Reason: Fever or Pain Stop: 03/18/25 01:43 Last Admin: 03/18/24 01:56 Dose: 1,000 mg Albuterol (Albuterol Neb 2.5 Mg/3 Ml Vial.Neb) 2.5 mg INHALATION Q6HR PRN PRN Reason: shortness of breath or wheezing Stop: 03/17/25 22:32 Albuterol (Albuterol Hfa 60 Puff/8 Gram Inhaler) 2 puff INHALATION Q4HR PRN PRN Reason: shortness of breath or wheezing Stop: 03/17/25 22:32 Allopurinol (Allopurinol 300 Mg Tablet) 300 mg PO DAILY JONATHAN Stop: 03/18/25 08:59 Ascorbic Acid (Ascorbic Acid 500 Mg Tablet) 250 mg PO DAILY JONATHAN Stop: 03/18/25 08:59 Budesonide/Formoterol Fumarate (Budesonide/Formoterol 160-4.5 Mcg 60 Puff/6 Gm Hfa.Aer.Ad) 2 puff INHALATION BID JONATHAN Stop: 03/18/25 08:59 Last Admin: 03/18/24 09:12 Dose: 2 puff Cyclobenzaprine HCl (Cyclobenzaprine 10 Mg Tablet) 10 mg PO QHS JONATHAN Stop: 03/18/25 21:59 Dextrose (Dextrose 50% In Water 25 Gm/50 Ml Syringe) 15 gm IV-PUSH TID.AC.HS.2A PRN PRN Reason: Blood Glucose <120 mg/dL Stop: 03/17/25 23:35 Dextrose (Dextrose 50% In Water 25 Gm/50 Ml Syringe) 25 gm IV-PUSH TID.AC.HS.2A PRN PRN Reason: Blood Glucose <100 mg/dL Stop: 03/17/25 23:35 Docusate Sodium (Docusate 100 Mg Capsule) 200 mg PO DAILY JONATHAN Stop: 03/18/25 08:59 Dupilumab (Dupilumab 300 Mg/2 Ml Pen.Injctr) 300 mg SUBCUT Q2W JONATHAN Stop: 03/21/25 08:59 Famotidine (Famotidine 20 Mg Tablet) 20 mg PO HS JONATHAN Stop: 03/18/25 21:59 Fenofibrate (Fenofibrate Nanocrystallized 145 Mg Tablet) 145 mg PO HS JONATHAN Stop: 03/18/25 21:59 Ferrous Sulfate (Ferrous Sulfate 324 Mg Tablet.Dr) 324 mg PO DAILY JONATHAN Stop: 03/18/25 08:59 Fluticasone Propionate (Fluticasone Propionate [place] 120 [place]/16 Gm Bottle) 2 spray INTRANASAL DAILY JONATHAN Stop: 03/18/25 08:59 Furosemide (Furosemide 40 Mg Tablet) 40 mg PO BID@0800,1600 JONATHAN Stop: 03/18/25 07:59 Glucose (Dextrose 40% Gel 15 Gm Tube) 30 gm PO TID.AC.HS.2A PRN PRN Reason: Blood Glucose <100 mg/dL Stop: 03/17/25 23:35 Glucose (Dextrose 40% Gel 15 Gm Tube) 15 gm PO TID.AC.HS.2A PRN PRN Reason: Blood Glucose <120 mg/dL Stop: 03/17/25 23:35 Meropenem (Merrem) 1 gm in 100 mls @ 200 mls/hr IV Q8H [facility] Last Admin: 03/18/24 05:21 Dose: 200 mls/hr Vancomycin HCl 1.25 gm/ (Dextrose) 275 mls @ 183.333 mls/hr IV Q12H [facility] Stop: 03/18/25 06:29 Last Admin: 03/18/24 06:06 Dose: 183.33 mls/hr Insulin Human Regular (Insulin Regular U-500, Human 1,500 Unit/3 Ml Insuln.Pen) 0 unit SUBCUT TID.AC.HS.2A [facility]; Protocol Stop: 03/18/25 01:59 Last Admin: 03/18/24 08:46 Dose: 5 unit Levothyroxine Sodium (Levothyroxine 100 Mcg Tablet) 100 mcg PO DAILY@0630 [facility] Stop: 03/18/25 06:29 Last Admin: 03/18/24 06:04 Dose: 100 mcg Levothyroxine Sodium (Levothyroxine 75 Mcg Tablet) 75 mcg PO DAILY@0630 [facility] Stop: 03/18/25 06:29 Last Admin: 03/18/24 06:04 Dose: 75 mcg Loratadine (Loratadine 10 Mg Tablet) 10 mg PO [facility] Stop: 03/18/25 21:59 Metoprolol Tartrate (Metoprolol Tartrate 25 Mg Tablet) 75 mg PO BID [facility] Stop: 03/18/25 08:59 Last Admin: 03/18/24 08:44 Dose: 75 mg Montelukast Sodium (Montelukast 10 Mg Tablet) 10 mg PO [facility] Stop: 03/18/25 21:59 Multivitamins (Multivitamin 1 Tab Tablet) 1 tab PO DAILY [facility] Stop: 03/18/25 08:59 Trulicity ( Dulaglutide) 4.5 Mg/0.5 Ml Pen Injector 4.5 mg SUBCUT Morrison@0900 [facility] Stop: 03/21/25 08:59 Pom- Insulin Regular Hum U-500 Conc 500 Unit/Ml Solution) 200 unit SUBCUT Q3D PRN PRN Reason: Uses with omnipod Stop: 03/17/25 22:32 Pantoprazole Sodium (Pantoprazole 40 Mg Vial) 40 mg IV-PUSH DAILY JONATHAN Stop: 03/18/25 08:59 Saccharomyces Boulardii (Saccharomyces Boulardii 250 Mg Capsule) 250 mg PO BID JONATHAN Stop: 03/18/25 08:59 Sodium Chloride (Sodium Chloride 0.9 % 10 Ml Syringe) 0 ml IV-PUSH PRN PRN PRN Reason: Flush Stop: 03/17/25 16:31 Last Admin: 03/17/24 17:45 Dose: 10 ml Sodium Chloride (Sodium Chloride 0.9 % 10 Ml Vial.Pf) 10 ml INJECTION PRN PRN PRN Reason: Dilution Stop: 03/17/25 20:07 Sodium Chloride (Sodium Chloride 0.9 % 10 Ml Syringe) 10 ml IV-PUSH PRN PRN PRN Reason: Flush Stop: 03/17/25 20:07 Tramadol HCl (Tramadol 50 Mg Tablet) 50 mg PO Q6H PRN PRN Reason: Pain Scale 6 - 10 Stop: 09/14/24 01:43 Triamcinolone Acetonide (Triamcinolone 0.1% Cream 15 Gm Tube) 1 applic TOPICAL DAILY PRN PRN Reason: skin irritation Stop: 03/18/25 00:57 Vancomycin HCl (Vancomycin - Pharmacy Dosing 1 Each Miscell) 1 each IV ONCE PRN; Protocol PRN Reason: ZZ.Pharmacy Consult Vitamin B Complex/Vit C/Folic Acid (Folic Acid/Vit Bcomp,C 1 Tab Tablet) 1 tab PO DAILY [facility] Stop: 03/18/25 08:59 Zinc Gluconate (Zinc Gluconate 50 Mg Tablet) 50 mg PO DAILY [facility] Stop: 03/18/25 08:59 Exam Physical Exam Vital Signs: Temp Pulse Resp BP Pulse Ox O2 Del Method 97.6 F 77 14 128/69 97 Room Air 03/18/24 07:49 03/18/24 07:49 03/18/24 07:49 03/18/24 07:49 03/18/24 07:49 03/18/24 08:08 Narrative: appears chilled Const General: comfortable and no acute distress HEENT Ears: hearing grossly normal bilaterally Nose: external nose normal Face and sinus: normal facial exam Teeth and gingiva: dentition normal Throat: posterior oropharynx normal Eyes General: appearance normal, both eyes and all related structures Neck Neck: normal visual inspection Chest Chest palpation & inspection: normal inspection of the chest Resp Effort & Inspection: normal respiratory effort Auscultation: clear to auscultation bilaterally Cardio Rate: regular rate GI Inspection: abnormal to inspection and obesity Skin General: rashes and/or lesions noted Other: Neuro General: patient oriented x3 Extrem General: normal to inspection Results - Infectious Disease Labs 03/18/24 06:48 03/18/24 06:48 Labs: 03/17/24 17:43: Corrected WBC 6.1, Uncorrected WBC Count 6.1, BUN 19, Creatinine 0.81 03/18/24 06:48: Corrected WBC 4.9, Uncorrected WBC Count 4.9, BUN 14, Creatinine 0.74 Microbiology Results Microbiology Narrative: 03/17/24 18:20 Blood Culture - Pending Blood - Left Antecubital 03/17/24 17:43 Blood Culture - Pending Blood - Right Antecubital Imaging and Cardiology Status: report viewed by me Results Comments: IMPRESSION: A wound is seen involving the right aspect of the patient's pannus with associated soft tissue gas.No collection is seen to suggest underlying abscess. No acute intra-abdominal process is seen. A&P - Infectious Disease (1) Chronic abdominal wound infection: (2) Type 2 diabetes mellitus with diabetic chronic kidney disease: Plan General surgery consult pending. Cultures pending from the blood. To date no wound cultures yet collected at [facility]. Empiric vancomycin and meropenem started. Chronic kidney disease who is not on dialysis. Patient did see a wall spider around the time this area of problem began but given patient's appearance of wound possibility of calciphylaxis could be entertained. Biopsy would be needed. Documented By: Antonio Jenkins MD 03/18/24930 Signed By: <Electronically signed by MD Antonio Jenkins> 03/18/24942 [facility] Work Phone: [phone] History of Present illness Narrative* Renee Art, STEPH-MEDICAL PSYCHOTHERAPIST - 03/10/2024 3:20 PM EDT Images from the original note were not included. Wound Care Progress Note Patient: Mary Jane Foy [facility]ly [facility] Date of : 1970 Chief Complaint: Nonhealing abdominal wound, follow up Subjective/HPI: Mary Jane is a 53 y.o. female who present to [facility] for evaluation of 1 ulcer(s) on the right lower abdomen. Patient established with wound clinic 01/30/2024. Current daily wound care includes: NPWT with black granufoam changed by [facility]. This was initiated for first application yesterday. [facility] is coming tomorrow to reapply. We would like this changed 3 times per week. Patient reports she was bitten by a brown usha spider approximately end of December 2023. She has been treated with oralantibiotics. Patient reports there are several spiders in her apartment building and other residents have been bitten. Patient was hospitalized 02/20/2024 - 02/27/2024 for wound infection of abdominal wound. Post incision and drainage of wound 02/24/[address] Amaya. Measurable wound changes: wound converted to 1 large wound Patient accompanied by: Self, arrives in wheelchair Nutritional screen shows patient does take in three servings of protein per day. Patient does not deny fever, chills, sweats or other symptoms of infection. Prescribed antibiotics:Completed as prescribed. Today's reported Blood sugar: not recorded today Lab Results Component Value Date HGBA1C 9.6 (H) 02/21/2024 Tobacco:denied - never a smoker Contributing comorbid conditions: Type 2 diabetes insulin dependent, BMI 51.03 kg/m2 Patient Active Problem List Diagnosis Acquired hypothyroidism Allergic rhinitis due to allergen Asthma without status asthmaticus Chronic sinusitis Diabetic neuropathy ([facility]) Gastroparesis Hyperlipidemia Lobular panniculitis Obesity, morbid ([facility]) Other chronic pain Supraventricular tachycardia ([facility]) Type 2 diabetes mellitus without complication ([facility]) Non-pressure chronic ulcer of skin of 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 ([facility]) Wound infection Stage 2 chronic kidney disease Past Medical History: Diagnosis Date Anemia Asthma COPD (chronic obstructive pulmonary disease) ([facility]) Diabetes type 2, controlled ([facility]) GI problem Herniation of right side of L4-L5 intervertebral disc High cholesterol Hypertension Hypothyroidism Nerve damage in feet and legs Osteoarthritis Ovarian cancer (CMS-HCC) Past Surgical History: Procedure Laterality Date APPENDECTOMY CHOLECYSTECTOMY DEBRIDEMENT ABDOMEN N/A 02/24/2024 Performed by Balaji Amaya MD at [facility] DISCECTOMY INCISION DRAINAGE ABDOMEN N/A 02/24/2024 Performed by Balaji Amaya MD at [facility] KNEE ARTHROSCOPY Right NASAL SEPTUM SURGERY REPLACEMENT TOTAL KNEE Right SHOULDER HARDWARE REMOVAL TONSILLECTOMY Current Outpatient Medications Medication Sig Dispense Refill acetaminophen-codeine (TYLENOL #3) 300-30 mg per tablet Take 1 tablet by mouth every 4 (four) hoursas needed for pain. albuterol (PROVENTIL HFA;VENTOLIN HFA) 90 mcg/actuation inhaler Inhale 2 puffs every 4 (four) hoursas needed for shortness of breath. allopurinoL (ZYLOPRIM) 300 mg tablet Take 1 tablet (300 mg total) by mouth in the morning. ascorbic acid, vitamin C, (ascorbic acid) 250 mg tablet,chewable Chew and swallow. biotin 10,000 mcg capsule Take by mouth. cinnamon bark (CINNAMON) 500 mg capsule Take 4 capsules (2,000 mg total) by mouth in the morning. clopidogreL (PLAVIX) 75 mg tablet Take 1 tablet (75 mg total) by mouth in the morning. cyclobenzaprine (FLEXERIL) 10 mg tablet Take 1 tablet (10 mg total) by mouth nightly. dupilumab (DUPIXENT PEN) 300 mg/2 mL pen injector SUBQ injection pen Inject 2 mL (300 mg total) under the skin once. One injection subcutaneous every 14 days fenofibrate (LOFIBRA) 160 mg tablet ferrous sulfate (IRON) 325 (65 FE) mg tablet Take 1 tablet (325 mg total) by mouth daily with breakfast. fexofenadine (ORAL) 180 mg tablet Take 1 tablet (180 mg total) by mouth in the morning. fluticasone (FLONASE) 50 mcg/actuation nasal spray furosemide (LASIX) 40 mg tablet Take 1 tablet (40 mg total) by mouth 2 (two) times a day before meals. HUMULIN R U-500, CONC, KWIKPEN injection Inject 150 Units of U-500 under the skin in the morning and 150 Units of U-500 at noon and 150 Units of U-500 in the evening and 150 Units of U-500 before bedtime. 150-190 units QID. HYDROcodone-acetaminophen (NORCO) 5-325 mg per tablet Take 1 tablet by mouth every 4 (four) hours as needed for pain. inulin (FIBER GUMMIES) 2 gram tablet,chewable Chew and swallow. [id number] [id number] mg capsule Take by mouth. Lactobacillus acidophilus (ACIDOPHILUS) capsule Take 1 capsule by mouth in the morning and 1 capsule at noon and 1 capsule in the evening. Take with meals. levothyroxine (SYNTHROID, LEVOTHROID) 150 MCG tablet lisinopriL (PRINIVIL,ZESTRIL) 10 mg tablet Take 1 tablet (10 mg total) by mouth in the morning. LYRICA 75 mg capsule Take 1 capsule (75 mg total) by mouth 3 (three) times a day. metoprolol tartrate (LOPRESSOR) 50 mg tablet Take 1.5 tablets (75 mg total) by mouth in the morningand 1.5 tablets (75 mg total) before bedtime. Indications: high blood pressure. montelukast (SINGULAIR) 10 mg tablet multivitamin tablet,chewable Chew 2 capsules and swallow. ondansetron ODT (ZOFRAN-ODT) 4 mg disintegrating tablet Dissolve 1 tablet (4 mg total) on tongue every 8 (eight) hours as needed for nausea. pantoprazole (PROTONIX) 40 mg EC tablet Take 1 tablet (40 mg total) by mouth in the morning and 1 tablet (40 mg total) before bedtime. Indications: gastroesophageal reflux disease. sodium hypochlorite (DAKIN'S SOLUTION) 0.125 % solution external solution Apply 1 Application topically in the morning and 1 Application before bedtime. Apply one application topically in the morningand 1 application at bedtime for wound care. 473 mL 2 SYMBICORT 160-4.5 mcg/actuation inhaler Inhale 2 puffs in the morning and 2 puffs before bedtime. Indications: bronchospasm prevention with COPD. tiotropium bromide 1.25 mcg/actuation mist Inhale 2 puffs in the morning. traMADoL (ULTRAM) 50 mg tablet Take 1 tablet (50 mg total) by mouth every 6 (six) hours as needed for pain. TRULICITY 4.5 mg/0.5 mL pen injector Inject 4.5 mg under the skin once a week. Sundays vitamin B complex (SUPER B-50 COMPLEX PLUS ORAL) Take by mouth. vitamin E, dl,tocopheryl acet, (VITAMIN E, DL, ACETATE,) 400 unit capsule Take 1 capsule (400 Unitstotal) by mouth in the morning. No current facility-administered medications for this visit. Allergies Allergen Reactions Bactrim [Sulfamethoxazole-Trimethoprim] Anaphylaxis Penicillins Anaphylaxis Sulfamethoxazole Anaphylaxis and Swelling Sulfanilamide Anaphylaxis Trimethoprim Anaphylaxis Aspirin Vomiting Avelox [Moxifloxacin] Hives Azithromycin Hives Cefzil [Cefprozil] Hives Cephalexin Hives Ciprofloxacin Hives Percocet [Oxycodone-Acetaminophen] Vomiting Soy Adhesive Rash The following portions of the patient's history were reviewed and updated as appropriate: allergies, current medications, past family history, past medical history, past social history, past surgicalhistory, problem list, and medication reconciliation was completed including current medication andpost discharge medication. PAIN: mostly to the right inferior lateral lower edge Pain Description: Sore Pain Scale 0/10: 8 Relieved by: Medication Review of Systems Constitutional: Negative for appetite change, chills and fever. HENT: Negative for hearing loss and trouble swallowing. Eyes: Positive for visual disturbance. Negative for pain. Respiratory: Negative for cough, shortness of breath and stridor. Cardiovascular: Negative for chest pain, palpitations and leg swelling. Gastrointestinal: Negative for abdominal distention, abdominal pain, nausea and vomiting. Genitourinary: Negative for dysuria, frequency and urgency. Musculoskeletal: Positive for arthralgias, back pain and gait problem. Skin: Positive for color change and wound. Neurological: Positive for numbness. Negative for weakness. Psychiatric/Behavioral: Negative for confusion. Objective: Vitals: 03/10/24 1545 BP: (!) 169/94 Pulse: 97 Resp: 18 Temp: 36.4 C (97.5 F) Physical Exam Nursing note reviewed. Constitutional: Appearance: She is well-developed. She is obese. HENT: Head: Normocephalic and atraumatic. Right Ear: External ear normal. Left Ear: External ear normal. Nose: Nose normal. Mouth/Throat: Mouth: Mucous membranes are dry. Pharynx: Oropharynx is clear. Eyes: Pupils: Pupils are equal, round, and reactive to light. Cardiovascular: Rate and Rhythm: Normal rate and regular rhythm. Heart sounds: No murmur heard. No friction rub. Pulmonary: Effort: No respiratory distress. Breath sounds: Normal breath sounds. No wheezing. Abdominal: General: Bowel sounds are normal. Palpations: Abdomen is soft. Tenderness: There is abdominal tenderness. There is guarding. Genitourinary: Comments: deferred Musculoskeletal: General: Normal range of motion. Cervical back: Normal range of motion and neck supple. Skin: General: Skin is warm and dry. Capillary Refill: Capillary refill takes less than 2 seconds. Findings: Wound present. Neurological: Mental Status: She is alert and oriented to person, place, and time. Motor: Weakness present. Psychiatric: Mood and Affect: Mood normal. Behavior: Behavior normal. Wound Assessment: Wound 02/24/24 Incision Abdomen N/A (Active) Wound Image Pre debridement Post debridement 03/10/241599 Site Assessment Yellow;[place];Red;Black;Painful 03/10/241558 Molly-wound Assessment [place];Blanchable erythema;Induration 03/10/241558 Wound Length (cm) 6 cm 03/10/241599 Wound Width (cm) 12.2 cm 03/10/241599 Wound Surface Area (cm^2) 73.2 cm^2 03/10/241599 Wound Depth (cm) 3 cm 03/10/241599 Wound Volume (cm^3) 219.6 cm^3 03/10/241599 Change in Wound Size % -4.41 03/10/241599 Drainage Description Serosanguineous;Cuello 03/10/241558 Drainage Amount Large Copious 03/10/241558 Treatments Cleansed with;Vashe/Hypochlorous Acid 03/10/241558 Debridement Performed? Y 03/10/241599 Type of Debridement Sharp to Subcutaneous 03/10/241599 Debridement Area (cm^2) 73.2 cm^2 03/10/241599 Dressing Type Moist to moist;Abdominal dressing 03/10/241599 Dressing Changed New 03/10/241599 Dressing Status Clean;Dry;Intact 03/10/241599 Wound Bed Granulation (%) < 25% 03/10/241558 Wound Bed Slough (%) 50% to 75% 10/09/24 1559 Wound Bed Eschar (%) < 25% 03/10/24 1559 Discussion: Debridement includes the removal of foreign material and/or devitalized tissue until healthy tissue is exposed. Risks, benefits and alternatives were discussed with the patient. We discussed possible complications, including infection and bleeding. Written consent was obtained prior to the procedure. Timeout procedure completed. Goals of debridement include: removal of devitalized tissue, decrease risk of infection, promote wound healing and prevent further complications. Procedure: Debridement/Procedure Level: Removal of devitalized tissue, nonviable tissue, and/or infection: Sub-q/Tissue abdomen skin and adipose Instrument Used: Adson and scalpel #15 blade Anesthesia EMLA Bleeding: Small Bleeding Control: Pressure Added Pain Control: Benzocaine 20% spray and EMLA Specimen Taken: None, Total Surface Area of Debridement: 73.2 cm2 Dressing: The wound was cleansed with Vashe wound wash and an adaptic with EMLA was placed in wound clinic. Patient Status: Well tolerated by patient. Assessment/Plan/Education: 1. Non-pressure chronic ulcer of skin of 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 (CMS-HCC) 2. Cellulitis, abdominal wall Do the until the NPWT device reapplied Vashe Use: 1) Cleanse the wound and surrounding skin with Vashe This will remove the wound debris 2) Allow to site for 10 minutes 3) Cover with xeroform gauze 4) Cover with silicone bordered foam, patient sensitive to adhesive Negative Pressure Wound Therapy Order for Facility or Home Care Wound(s) Location: abdomen Type of NPWT preferred if available: [employer] Cleanse wound and periwound with soap and water after removing the old dressing. Dry intact skin completely. Place black foam into tunneling or undermining areas per guidelines. Remember on the 2nd dressing change, pull foam back about 1 cm after placement. + Use black foam to cover wound bed. Cover any white foam used with black foam. + Set at 125 MmHg Continuous. Move track pad off the wound(s) to a non-pressure area. Change 3 times per week (NPWT only) and as needed. Patient may remove dressing and shower prior to appointment or nurse visit. Keep NPWT on at least 22 hours in a 24 hour period. Alternate dressing of Normal Saline wet to dry changed twice a day may be used if needed. Remember to keep NPWT machine in an upright position, even at night. Change canister weekly and as needed. Document number and types(s) of foam inserted into wound(s). Patient instructed in Other: Chronic wounds care to abdomen. Patient verbalize ability to perform wound care. Patient verbalized understanding. We will continue to follow closely to avoid any complications or infection. Our short term goal is wound compliance. Our nursing home goal is wound closure. The patient was taught to watch for S/S of infection (redness, pus, pain, increased swelling, chills or fever) and to call the PCP or wound care clinic if such occurs. The patient was educated on offloading the area by avoiding direct pressure to the wound bed. Education as well as the pathophysiology of the disease process was provided on infection, edema, necrotic tissue and its relationship tononhealing wounds. Education was also provided on treatment plan. Patient verbalized understanding. Follow up wound clinic in 4 weeks. Instructed to contact wound clinic/PCP or ER should symptoms worsen. Total time spent was 24 minutes: Preparing to see the patient (e.g., review of tests) Obtaining and/or reviewing separately obtained history Performing a medically appropriate examination and/or evaluation Counseling and educating the patient/family/caregiver Ordering medications, tests, or procedures Documenting clinical information in the electronic or other health record SHAYLA SHELBY 03/10/24 4:[address] [facility] [phone] SHAYLA Shelby 03/10/24 1658 [facility] Instructions* Patient Instructions* Rebecca Dotson RN - 03/10/2024 3:20 PM EDT [facility]- 3 TIMES WEEKLY DRESSING CHANGES Wound Management Treatment Plan Wound Location(s): right lateral proximal (upper) abdomen, right lateral distal (lower) abdomen HOW TO CARE FOR YOUR WOUND UNTIL WOUND VAC ARRIVES: The following should be performed Daily and as needed. STEP 1: Cleanse wound with Wound cleanser. STEP 2: Place a moistened Vashe gauze into wound beds. A sample of Vashe solution was given to you at clinic 03/03/24) STEP 3: Apply xeroform into wound bed STEP 4: Wipe skin around wound with skin prep pad, this will help protect your skin and help the foam dressing to adhere. STEP 5: Cover wound with Foam with silicone border ONCE WOUND VAC ARRIVES CALL HOME HEALTH AND ARRANGE FOR THEM TO COME AND PUT IT ON. WOUND VAC DRESSING CHANGES 3 TIMES WEEKLY. NPWT wound management. Negative Pressure Wound Therapy Order for [facility] Cleanse wound and periwound with soap and water after removing the old dressing. Dry intact skin completely. Wound(s) Location: RIGHT LOWER ABDOMEN + Irrigate wound(s) with Saline (normal) prior to applying new dressing. + Apply skin prep to around the wound prior to placing drape. + Place adaptic over wound bed prior to applying black foam. Black foam to cover wound bed. If tunneling present apply piece of white foam noting where tunneling is located then cover with black foam. + Set at 125 MmHg Continuous. Move track pad off the wound(s) to a non-pressure area. Change 3 times per week (NPWT only) and as needed. Patient may remove dressing and shower prior to appointment or nurse visit. Keep NPWT on at least 22 hours in a 24 hour period. Alternate dressing of SALINE MOIST TO MOIST GAUZE can be used if dressing comes off until the vac can be replaced. Remember to keep NPWT machine in an upright position, even at night. Change canister weekly and as needed. Document number and types(s) of foam inserted into wound(s).NPWT wound management. Apply vaseline to any red irritated areas of skin to outer abdomen. ACTIVITY: Avoid direct pressure to wound(s) at all times and Reposition at least every 2 hours NUTRITION: High protein diet SKIN CARE: keep wound covered at all times SWELLING CONTROL: Avoid standing for prolonged periods of time. Elevate legs whenever sitting to level of heart/hips or higher. ITEMS TO FOLLOW UP ON: None Length Width Depth Wound drainage Type Description large Serosanginous Serosanguinous, cuello, yellow documented in this encounterSelect Medical Specialty Hospital - YoungstownProRadis Mcl[facility] Caro [id number] History of Present illness Narrative* Jayleen Nicole, STEPH-MEDICAL PSYCHOTHERAPIST - 03/03/2024 10:40 AM EDT Images from the original note were not included. Wound Care Progress Note Patient: Mary Jane Foy [facility]ly [facility] Date of : 1970 Chief Complaint: Nonhealing abdominal wound, follow up Subjective/HPI: Mary Jane is a 53 y.o. female who present to [facility] for evaluation of 1 ulcer(s) on the right lower abdomen. Patient established with wound clinic 01/30/2024. Current daily wound care includes: daily vashe soaks, covering wound bed dressing, change daily per home care nurses. Patient reports she was bitten by a brown usha spider approximately 1 month ago. She has been treated with o ral antibiotics. Patient reports there are several spiders in her apartment building and other residents have been bitten. Patient was hospitalized 02/20/2024 - 02/27/2024 for wound infection of abdominal wound. Post incision and drainage of wound 02/24/[address] Amaya. Measurable wound changes: wound converted to 1 large wound Patient accompanied by: Self, arrives in wheelchair Nutritional screen shows patient does take in three servings of protein per day. Patient does not deny fever, chills, sweats or other symptoms of infection. Prescribed antibiotics:Completed as prescribed. Today's reported Blood sugar: not recorded today Lab Results Component Value Date HGBA1C 9.6 (H) 02/21/2024 Tobacco:denied - never a smoker Contributing comorbid conditions: Type 2 diabetes insulin dependent, BM I 51.14 Patient Active Problem List Diagnosis Acquired hypothyroidism Allergic rhinitis due to allergen Asthma without status asthmaticus Chronic sinusitis Diabetic neuropathy ([facility]) Gastroparesis Hyperlipidemia Lobular panniculitis Obesity, morbid ([facility]) Other chronic pain Supraventricular tachycardia ([facility]) Type 2 diabetes mellitus without complication ([facility]) Non-pressure chronic ulcer of skin of 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 ([facility]) Wound infection Stage 2 chronic kidney disease Past Medical History: Diagnosis Date Anemia Asthma COPD (chronic obstructive pulmonary disease) ([facility]) Diabetes type 2, controlled ([facility]) GI problem Herniation of right side of L4-L5 intervertebral disc High cholesterol Hypertension Hypothyroidism Nerve damage in feet and legs Osteoarthritis Ovarian cancer ([facility]) Past Surgical History: Procedure Laterality Date APPENDECTOMY CHOLECYSTECTOMY DEBRIDEMENT ABDOMEN N/A 02/24/2024 Performed by Balaji Amaya MD at [facility] DISCECTOMY INCISION DRAINAGE ABDOMEN N/A 02/24/2024 Performed by Balaji Amaya MD at [facility] KNEE ARTHROSCOPY Right NASAL SEPTUM SURGERY REPLACEMENT TOTAL KNEE Right SHOULDER HARDWARE REMOVAL TONSILLECTOMY Current Outpatient Medications Medication Sig Dispense Refill acetaminophen-codeine (TYLENOL #3) 300-30 mg per tablet Take 1 tablet by mouth every 4 (four) hoursas needed for pain. albuterol (PROVENTIL HFA;VENTOLIN HFA) 90 mcg/actuation inhaler Inhale 2 puffs every 4 (four) hoursas needed for shortness of breath. allopurinoL (ZYLOPRIM) 300 mg tablet Take 1 tablet (300 mg total) by mouth in the morning. ascorbic acid, vitamin C, (ascorbic acid) 250 mg tablet,chewable Chew and swallow. biotin 10,000 mcg capsule Take by mouth. cinnamon bark (CINNAMON) 500 mg capsule Take 4 capsules (2,000 mg total) by mouth in the morning. clopidogreL (PLAVIX) 75 mg tablet Take 1 tablet (75 mg total) by mouth in the morning. cyclobenzaprine (FLEXERIL) 10 mg tablet Take 1 tablet (10 mg total) by mouth nightly. dupilumab (DUPIXENT PEN) 300 mg/2 mL pen injector SUBQ injection pen Inject 2 mL (300 mg total) under the skin once. One injection subcutaneous every 14 days fenofibrate (LOFIBRA) 160 mg tablet ferrous sulfate (IRON) 325 (65 FE) mg tablet Take 1 tablet (325 mg total) by mouth daily with breakfast. fexofenadine (ORAL) 180 mg tablet Take 1 tablet (180 mg total) by mouth in the morning. fluconazole (DIFLUCAN) 200 mg tablet Take 1 tablet (200 mg total) by mouth in the morning for 5 days. 5 tablet 0 fluticasone (FLONASE) 50 mcg/actuation nasal spray furosemide (LASIX) 40 mg tablet Take 1 tablet (40 mg total) by mouth 2 (two) times a day before meals. HUMULIN R U-500, CONC, KWIKPEN injection Inject 150 Units of U-500 under the skin in the morning and 150 Units of U-500 at noon and 150 Units of U-500 in the evening and 150 Units of U-500 before bedtime. 150-190 units QID. HYDROcodone-acetaminophen (NORCO) 5-325 mg per tablet Take 1 tablet by mouth every 4 (four) hours as needed for pain. inulin (FIBER GUMMIES) 2 gram tablet,chewable Chew and swallow. evaiy-omtqw-5-hks-tuu-hduadi 930-80-72-50 mg capsule Take by mouth. Lactobacillus acidophilus (ACIDOPHILUS) capsule Take 1 capsule by mouth in the morning and 1 capsule at noon and 1 capsule in the evening. Take with meals. levothyroxine (SYNTHROID, LEVOTHROID) 150 MCG tablet lisinopriL (PRINIVIL,ZESTRIL) 10 mg tablet Take 1 tablet (10 mg total) by mouth in the morning. LYRICA 75 mg capsule Take 1 capsule (75 mg total) by mouth 3 (three) times a day. metoprolol tartrate (LOPRESSOR) 50 mg tablet Take 1.5 tablets (75 mg total) by mouth in the morningand 1.5 tablets (75 mg total) before bedtime. Indications: high blood pressure. montelukast (SINGULAIR) 10 mg tablet multivitamin tablet,chewable Chew 2 capsules and swallow. ondansetron ODT (ZOFRAN-ODT) 4 mg disintegrating tablet Dissolve 1 tablet (4 mg total) on tongue every 8 (eight) hours as needed for nausea. pantoprazole (PROTONIX) 40 mg EC tablet Take 1 tablet (40 mg total) by mouth in the morning and 1 tablet (40 mg total) before bedtime. Indications: gastroesophageal reflux disease. sodium hypochlorite (DAKIN'S SOLUTION) 0.125 % solution external solution Apply 1 Application topically in the morning and 1 Application before bedtime. Apply one application topically in the morningand 1 application at bedtime for wound care. 473 mL 2 SYMBICORT 160-4.5 mcg/actuation inhaler Inhale 2 puffs in the morning and 2 puffs before bedtime. Indications: bronchospasm prevention with COPD. tiotropium bromide 1.25 mcg/actuation mist Inhale 2 puffs in the morning. traMADoL (ULTRAM) 50 mg tablet Take 1 tablet (50 mg total) by mouth every 6 (six) hours as needed for pain. TRULICITY 4.5 mg/0.5 mL pen injector Inject 4.5 mg under the skin once a week. Sundays vitamin B complex (SUPER B-50 COMPLEX PLUS ORAL) Take by mouth. vitamin E, dl,tocopheryl acet, (VITAMIN E, DL, ACETATE,) 400 unit capsule Take 1 capsule (400 Unitstotal) by mouth in the morning. No current facility-administered medications for this visit. Allergies Allergen Reactions Bactrim [Sulfamethoxazole-Trimethoprim] Anaphylaxis Penicillins Anaphylaxis Sulfamethoxazole Anaphylaxis and Swelling Sulfanilamide Anaphylaxis Trimethoprim Anaphylaxis Aspirin Vomiting Avelox [Moxifloxacin] Hives Azithromycin Hives Cefzil [Cefprozil] Hives Cephalexin Hives Ciprofloxacin Hives Percocet [Oxycodone-Acetaminophen] Vomiting Soy Adhesive Rash The following portions of the patient's history were reviewed and updated as appropriate: allergies, current medications, past family history, past medical history, past social history, past surgicalhistory, problem list, and medication reconciliation was completed including current medication andpost discharge medication. PAIN:5/10 with touching Pain Description: (stinging) Pain Scale 0/10: 7 Relieved by: Medication Review of Systems Constitutional: Negative. Negative for appetite change, chills and fever. HENT: Negative. Negative for trouble swallowing. Eyes: Negative. Respiratory: Negative. Negative for cough, shortness of breath and stridor. Cardiovascular: Negative. Negative for chest pain, palpitations and leg swelling. Gastrointestinal: Negative. Negative for abdominal distention, abdominal pain, nausea and vomiting. Genitourinary: Negative. Negative for dysuria, frequency and urgency. Musculoskeletal: Positive for arthralgias, back pain and gait problem. Skin: Positive for color change and wound. Neurological: Positive for numbness. Negative for weakness. Objective: Vitals: 03/03/24 1104 BP: (!) 162/91 Pulse: 91 Temp: 36.4 C (97.5 F) Physical Exam Nursing note reviewed. Constitutional: Appearance: She is well-developed. HENT: Head: Normocephalic and atraumatic. Cardiovascular: Rate and Rhythm: Normal rate and regular rhythm. Heart sounds: No murmur heard. No friction rub. Pulmonary: Effort: No respiratory distress. Breath sounds: Normal breath sounds. No wheezing. Abdominal: General: Bowel sounds are normal. Palpations: Abdomen is soft. Tenderness: There is abdominal tenderness. There is guarding. Musculoskeletal: General: Normal range of motion. Cervical back: Normal range of motion. Skin: General: Skin is warm and dry. Neurological: Mental Status: She is alert and oriented to person, place, and time. Wound Assessment: 03/03/24 1100 Wound 02/24/24 Incision Abdomen N/A Date First Assessed/Time First Assessed: 02/24/24 1549 Primary Wound Type: Incision Location: Abdomen Orientation: N/A Wound Description (Comments): saline soaked kerlix roll to pack, 4x4s, coverall Wound Image Pre debridement Post debridement Site Assessment Yellow;Cuello;Red;Black;Painful Molly-wound Assessment [place];Blanchable erythema;Induration Wound Length (cm) 5.5 cm Wound Width (cm) 12.4 cm Wound Surface Area (cm^2) 68.2 cm^2 Wound Depth (cm) 2.4 cm Wound Volume (cm^3) 163.68 cm^3 Change in Wound Size % 2.72 Drainage Description Serosanguineous;Cuello Drainage Amount Large Copious Treatments Cleansed with;Vashe/Hypochlorous Acid Debridement Performed? Y Type of Debridement Sharp to Subcutaneous Debridement Area (cm^2) 68.2 cm^2 Wound Bed Granulation (%) < 25% Wound Bed Slough (%) 50% to 75% (adipose tisssue noted) Wound Bed Eschar (%) < 25% Discussion: Debridement includes the removal of foreign material and/or devitalized tissue until healthy tissue is exposed. Risks, benefits and alternatives were discussed with the patient. We discussed possible complications, including infection and bleeding. Written consent was obtained prior to the procedure. Timeout procedure completed. Goals of debridement include: removal of devitalized tissue, decrease risk of infection, promote wound healing and prevent further complications. Procedure: Debridement/Procedure Level: Removal of devitalized tissue, nonviable tissue, and/or infection: Sub-q/Tissue and adipose Instrument Used: Adson, Curette, and Scissors Anesthesia Dermoplast Bleeding: Small Bleeding Control: Pressure Added Pain Control: EMLA Specimen Taken: None, Total Surface Area of Debridement: 68.2 cm2 Dressing: The wound was cleansed with Vashe wound wash and an adaptic with EMLA was placed in wound clinic. Patient Status: Well tolerated by patient. Assessment/Plan/Education: 1. Non-pressure chronic ulcer of skin of 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 (CMS-HCC) 2. Cellulitis, abdominal wall Vashe Use: 1) Cleanse the wound and surrounding skin with Vashe This will remove the wound debris 2) Allow to site for 10 minutes 3) Cover with xeroform gauze 4) Cover with silicone bordered foam, patient sensitive to adhesive Do the above until the NPWT device arrives. Negative Pressure Wound Therapy Order for Facility or Home Care Wound(s) Location: abdomen Type of NPWT preferred if available: [employer] Cleanse wound and periwound with soap and water after removing the old dressing. Dry intact skin completely. Place black foam into tunneling or undermining areas per guidelines. Remember on the 2nd dressing change, pull foam back about 1 cm after placement. + Use black foam to cover wound bed. Cover any white foam used with black foam. + Set at 125 MmHg Continuous. Move track pad off the wound(s) to a non-pressure area. Change 3 times per week (NPWT only) and as needed. Patient may remove dressing and shower prior to appointment or nurse visit. Keep NPWT on at least 22 hours in a 24 hour period. Alternate dressing of Normal Saline wet to dry changed twice a day may be used if needed. Remember to keep NPWT machine in an upright position, even at night. Change canister weekly and as needed. Document number and types(s) of foam inserted into wound(s). Patient instructed in Other: Chronic wounds care to abdomen. Patient verbalize ability to perform wound care. Patient verbalized understanding. We will continue to follow closely to avoid any complications or infection. Our short term goal is wound compliance. Our terminologist goal is wound closure. The patient was taught to watch for S/S of infection (redness, pus, pain, increased swelling, chills or fever) and to call the PCP or wound care clinic if such occurs. The patient was educated on offloading the area by avoiding direct pressure to the wound bed. Education as well as the pathophysiology of the disease process was provided on infection, edema, necrotic tissue and its relationship tononhealing wounds. Education was also provided on treatment plan. Patient verbalized understanding. Follow up wound clinic in 2 weeks. Instructed to contact wound clinic/PCP or ER should symptoms worsen. Total time spent was 24 minutes: Preparing to see the patient (e.g., review of tests) Obtaining and/or reviewing separately obtained history Performing a medically appropriate examination and/or evaluation Counseling and educating the patient/family/caregiver Ordering medications, tests, or procedures Documenting clinical information in the electronic or other health record - SHAYLA CASANOVA 03/03/24 1:01 PM Jayleen Nicole APRN, JOSE, CWS, ELMIRA [facility]:[phone] SHAYLA Casanova 02/03/24 0812 SHAYLA Casanova 02/06/24 1500 SHAYLA Casanova 02/06/24 1542 SHAYLA Casanova 02/13/24 1036 SHAYLA Casanova 03/03/24 1318 documented in [address] [facility]Mer[facility] Instructions* Patient Instructions* Rebecca Dotson RN - 03/03/2024 10:40 AM EDT [facility]- 3 TIMES WEEKLY DRESSING CHANGES Wound Management Treatment Plan Wound Location(s): right lateral proximal (upper) abdomen, right lateral distal (lower) abdomen HOW TO CARE FOR YOUR WOUND UNTIL WOUND VAC ARRIVES: The following should be performed Daily and as needed. STEP 1: Cleanse wound with Wound cleanser. STEP 2: Place a moistened Vashe gauze into wound beds. A sample of Vashe solution was given to you at clinic 03/03/24) STEP 3: Apply xeroform into wound bed STEP 4: Wipe skin around wound with skin prep pad, this will help protect your skin and help the foam dressing to adhere. STEP 5: Cover wound with Foam with silicone border ONCE WOUND VAC ARRIVES CALL [facility] AND ARRANGE FOR THEM TO COME AND PUT IT ON. WOUND VAC DRESSING CHANGES 3 TIMES WEEKLY. NPWT wound management. Negative Pressure Wound Therapy Order for [facility] Cleanse wound and periwound with soap and water after removing the old dressing. Dry intact skin completely. Wound(s) Location: RIGHT LOWER ABDOMEN + Irrigate wound(s) with Saline (normal) prior to applying new dressing. + Apply skin prep to around the wound prior to placing drape. + Place adaptic over wound bed prior to applying black foam. Black foam to cover wound bed. If tunneling present apply piece of white foam noting where tunneling is located then cover with black foam. + Set at 125 MmHg Continuous. Move track pad off the wound(s) to a non-pressure area. Change 3 times per week (NPWT only) and as needed. Patient may remove dressing and shower prior to appointment or nurse visit. Keep NPWT on at least 22 hours in a 24 hour period. Alternate dressing of SALINE MOIST TO MOIST GAUZE can be used if dressing comes off until the vac can be replaced. Remember to keep NPWT machine in an upright position, even at night. Change canister weekly and as needed. Document number and types(s) of foam inserted into wound(s).NPWT wound management. Apply vaseline to any red irritated areas of skin to outer abdomen. ACTIVITY: Avoid direct pressure to wound(s) at all times and Reposition at least every 2 hours NUTRITION: High protein diet SKIN CARE: keep wound covered at all times SWELLING CONTROL: Avoid standing for prolonged periods of time. Elevate legs whenever sitting to level of heart/hips or higher. ITEMS TO FOLLOW UP ON: None Length Width Depth Wound drainage Type Description large Serosanginous Serosanguinous, cuello, yellow documented in this encounterMer[facility]09[facility]27-[facility] Nurse Note* Brittany Orozco RN - 02/27/2024 7:20 PM EDT RN went over discharge instructions, patient verbalizes understanding, no further questions. Patient left via her own vehicle. [facility] Nurse Note* Brittany Orozco RN - 02/27/2024 7:20 PM EDT RN went over discharge instructions, patient verbalizes understanding, no further questions. Patient left via her own vehicle. documented in this encounterMer[facility]. [facility]09-27-2024 Hospital course Narrative* Ghanshyam Mayberyr MD - 02/27/2024 10:22 AM EDT Images from the original note were not included. [facility] INTERNAL MEDICINE [facility] [address] [id number] Hospital Medicine Discharge Summary Patient: Mary Jane Suarez Date of : 1970 Room: Encounter date: 02/27/24 DATE OF ADMISSION: 02/20/2024 DATE OF DISCHARGE:02/27/2024 DISCHARGE DIAGNOSES Principal Problem: Wound infection Active Problems: Acquired hypothyroidism Diabetic neuropathy ([facility]) Hyperlipidemia Obesity, morbid ([facility]) Supraventricular tachycardia ([facility]) Type 2 diabetes mellitus without complication ([facility]) Stage 2 chronic kidney disease [facility] General surgery, Infectious Disease PCP: ANN FOURNIER, LABOR[facility] RO[employer]-MEDICAL PSYCHOTHERAPIST PROCEDURES Debridement of abdominal wounds HOSPITAL COURSE SUMMARY Per HPI: Mary Jane Suarez is a 53 y.o. female with PMH of diabetes, chronic kidney disease, SVT,asthma, hypothyroidism, who presented to emergency department under the advice of the wound care clinic. Patient stated approximately 3-4 weeks ago got bit twice by a spider, wound has continued to wo rsen. She was previously on doxycycline, she does have multiple allergies to antibiotics. She was stated she was also had low-grade fevers at home. Workup in emergency department did show slight acute kidney injury on chronic kidney disease, no leukocytosis, lactate was negative, CRP elevated at 10.2. Blood cultures and wound cultures have been collected. She was started on vancomycin. Will have Infectious Disease and General surgery see her for potential debridement, for which apparently General surgery is not available until 02/23/2024. While she was here she was treated with IV antibiotics and followed by General surgery and Infectious Disease. General surgery did see patient initially and debride abdominal wounds. She was also followed by Infectious Disease. Patient did receive full 7 days of vancomycin. She also received a 3 day course of meropenem for achromobacter found in wound. Per Infectious Disease recommendations, patient will be sent home with 5 more days of fluconazole to complete a 7 day course. Patient be discharged home with health to help with wound care. Wound team did see patient while she was here and gavedressing change discharge recommendations. 02/27/24, Hospital Day: 8 Interval History: Status: improved. No overnight events or new complaints. Review of Systems Constitutional: Negative for activity change, appetite change, fatigue and unexpected weight change. HENT: Negative for trouble swallowing. Respiratory: Negative for cough, sputum production, shortness of breath and wheezing. Cardiovascular: Negative for chest pain, palpitations and leg swelling. Gastrointestinal: Negative for abdominal pain, blood in stool, melena, constipation, diarrhea, nausea and vomiting. Genitourinary: Negative for difficulty urinating. Skin: Positive for wound. Negative for color change and rash. Neurological: Negative for dizziness, seizures, speech difficulty and headaches. Psychiatric/Behavioral: Negative for sleep disturbance. Physical Exam BP 131/58 Pulse 89 Temp 36.8 C (98.2 F) (Oral) Resp 16 Ht 157.5 cm (5' 2 ) Wt 126.8 kg (279 lb 9.6 oz) SpO2 93% BMI 51.14 kg/m Intake/Output Summary (Last 24 hours) at 02/27/2024 1022 Last data filed at 02/27/2024 0904 Gross per 24 hour Intake 1594.11 ml Output 2130 ml Net -535.89 ml Constitutional: General: No acute distress. Cardiovascular: Rate and Rhythm: Normal rate and regular rhythm. Heart sounds: Normal heart sounds, S1 normal and S2 normal. Pulmonary: Effort: Pulmonary effort is normal. Breath sounds: Normal breath sounds. Musculoskeletal: Right lower leg: No edema. Left lower leg: No edema. Skin: Wound with dressing dry and intact. General: Skin is warm and dry. Coloration: Skin is not pale. Neurological: General: No focal deficit present. Psychiatric: Mood and Affect: Mood normal. Behavior: Behavior normal. Labs Recent Results (from the past 48 hour(s)) Bedside Glucose *Place/Obtain serum glucose if >500(>600 [facility]) per glucometer. Collection Time: 02/25/24 11:56 AM Result Value Ref Range Bedside glucose 322 (H) 65 - 99 mg/dL Bedside Glucose *Place/Obtain serum glucose if >500(>600 [facility]) per glucometer. Collection Time: 02/25/24 4:02 PM Result Value Ref Range Bedside glucose 407 (HH) 65 - 99 mg/dL Bedside Glucose *Place/Obtain serum glucose if >500(>600 [facility]) per glucometer. Collection Time: 02/25/24 9:17 PM Result Value Ref Range Bedside glucose 405 (HH) 65 - 99 mg/dL Comprehensive metabolic panel Collection Time: 02/26/24 5:02 AM Result Value Ref Range Sodium 133 (L) 134 - 146 mmol/L Potassium, Bld 4.8 3.5 - 5.0 mmol/L Chloride 102 98 - 109 mmol/L CO2 21 (L) 22 - 32 mmol/L Anion gap 10 5 - 15 mmol/L BUN 46 (H) 5 - 23 mg/dL Creatinine 1.48 (H) 0.40 - 1.00 mg/dL Glucose 344 (H) 65 - 99 mg/dL Calcium 8.5 8.5 - 10.5 mg/dL Total Protein 6.4 6.0 - 8.0 g/dL Albumin 2.5 (L) 3.2 - 5.3 g/dL Alkaline Phosphatase 38 (L) 39 - 130 U/L AST 15 0 - 41 U/L ALT 13 0 - 31 U/L Total bilirubin 0.5 0.3 - 1.2 mg/dL eGFR (CKD-EPI)non-race dependent 42 (L) >59 ml/min/1.73sq.m Magnesium Collection Time: 02/26/24 5:02 AM Result Value Ref Range Magnesium 1.9 1.8 - 2.6 mg/dL CBC auto differential Collection Time: 02/26/24 5:02 AM Result Value Ref Range White Blood Cells 6.5 4.0 - 11.0 X10E9/L RBC count 2.72 (L) 3.80 - 5.20 X10E12/L Hemoglobin 8.4 (L) 11.7 - 15.5 g/dL Hematocrit 25.4 (L) 35 - 47 % MCV 93 80 - 100 fL MCH 30.9 27 - 34 pg MCHC 33.1 32 - 36 g/dL RDW 13.7 11.5 - 15.0 % Platelets 232 150 - 450 X10E9/L MPV 10.1 7 - 12 fL % neutrophils 59.3 % % lymphocytes 28.2 % % monocytes 8.5 % % eosinophils 3.4 % % Basophils 0.6 % Neutrophils Absolute (A) 3.8 1.5 - 6.6 X10E9/L Lymphocytes Absolute 1.8 1.0 - 3.5 X10E9/L Monocytes Absolute 0.6 0 - 0.9 X10E9/L Eosinophils Absolute 0.2 0.0 - 0.4 X10E9/L Basophils Absolute 0.0 0.0 - 0.2 X10E9/L Bedside Glucose *Place/Obtain serum glucose if >500(>600 MR[facility]) per glucometer. Collection Time: 02/26/24 12:00 PM Result Value Ref Range Bedside glucose 275 (H) 65 - 99 mg/dL Bedside Glucose *Place/Obtain serum glucose if >500(>600 MRH) per glucometer. Collection Time: 02/26/24 3:18 PM Result Value Ref Range Bedside glucose 339 (H) 65 - 99 mg/dL Bedside Glucose *Place/Obtain serum glucose if >500(>600 [facility]) per glucometer. Collection Time: 02/26/24 9:10 PM Result Value Ref Range Bedside glucose 343 (H) 65 - 99 mg/dL Comprehensive metabolic panel Collection Time: 02/27/24 5:08 AM Result Value Ref Range Sodium 135 134 - 146 mmol/L Potassium, Bld 4.7 3.5 - 5.0 mmol/L Chloride 105 98 - 109 mmol/L CO2 21 (L) 22 - 32 mmol/L Anion gap 9 5 - 15 mmol/L BUN 43 (H) 5 - 23 mg/dL Creatinine 1.22 (H) 0.40 - 1.00 mg/dL Glucose 297 (H) 65 - 99 mg/dL Calcium 8.7 8.5 - 10.5 mg/dL Total Protein 6.3 6.0 - 8.0 g/dL Albumin 2.4 (L) 3.2 - 5.3 g/dL Alkaline Phosphatase 40 39 - 130 U/L AST 17 0 - 41 U/L ALT 15 0 - 31 U/L Total bilirubin 0.6 0.3 - 1.2 mg/dL eGFR (CKD-EPI)non-race dependent 52 (L) >59 ml/min/1.73sq.m Magnesium Collection Time: 02/27/24 5:08 AM Result Value Ref Range Magnesium 1.8 1.8 - 2.6 mg/dL CBC auto differential Collection Time: 02/27/24 5:08 AM Result Value Ref Range White Blood Cells 7.0 4.0 - 11.0 X10E9/L RBC count 2.74 (L) 3.80 - 5.20 X10E12/L Hemoglobin 8.4 (L) 11.7 - 15.5 g/dL Hematocrit 25.6 (L) 35 - 47 % MCV 93 80 - 100 fL MCH 30.7 27 - 34 pg MCHC 32.8 32 - 36 g/dL RDW 13.7 11.5 - 15.0 % Platelets 239 150 - 450 X10E9/L MPV 10.4 7 - 12 fL % neutrophils 62.8 % % lymphocytes 25.1 % % monocytes 7.8 % % eosinophils 3.8 % % Basophils 0.5 % Neutrophils Absolute (A) 4.4 1.5 - 6.6 X10E9/L Lymphocytes Absolute 1.8 1.0 - 3.5 X10E9/L Monocytes Absolute 0.5 0 - 0.9 X10E9/L Eosinophils Absolute 0.3 0.0 - 0.4 X10E9/L Basophils Absolute 0.0 0.0 - 0.2 X10E9/L Radiology No results found. DISCHARGE ASSESSMENT & PLAN Fluconazole 200 mg daily x5 more days. Wound care DISCHARGE INSTRUCTION Disposition: Home with homecare Condition: Good Activity: activity as tolerated Diet: Adult nutrition supplements Adult diet Regular Texture; Consistent Carb 255 grams (2000 kcal); No Added Salt (3-4 gm Sodium) Adult diet Follow up: SHAYLA KRAFT within 7-14 days. Follow-up with wound care Labs/Imaging/Pathology: Discharge Medications: Medication List START taking these medications Instructions Last Dose Given Next Dose Due DAKIN'S SOLUTION 0.125 % solution external solution Generic drug: sodium hypochlorite Apply 1 Application topically in the morning and 1 Application before bedtime. Apply one application topically in the morning and 1 application at bedtime for wound care. fluconazole 200 mg tablet Commonly known as: DIFLUCAN Start taking on: February 28, 2024 Take 1 tablet (200 mg total) by mouth in the morning for 5 days. CONTINUE taking these medications Instructions Last Dose Given Next Dose Due acetaminophen-codeine 300-30 mg per tablet Commonly known as: TYLENOL #3 Take 1 tablet by mouth every 4 (four) hours as needed for pain. ACIDOPHILUS capsule Generic drug: Lactobacillus acidophilus Take 1 capsule by mouth in the morning and 1 capsule at noon and 1 capsule in the evening. Take with meals. albuterol 90 mcg/actuation inhaler Commonly known as: PROVENTIL HFA;VENTOLIN HFA Inhale 2 puffs every 4 (four) hours as needed for shortness of breath. allopurinoL 300 mg tablet Commonly known as: ZYLOPRIM Take 1 tablet (300 mg total) by mouth in the morning. ascorbic acid 250 mg tablet,chewable Generic drug: ascorbic acid (vitamin C) Chew and swallow. biotin 10,000 mcg capsule Take by mouth. CINNAMON 500 mg capsule Generic drug: cinnamon bark Take 4 capsules (2,000 mg total) by mouth in the morning. clopidogreL 75 mg tablet Commonly known as: PLAVIX Take 1 tablet (75 mg total) by mouth in the morning. cyclobenzaprine 10 mg tablet Commonly known as: FLEXERIL Take 1 tablet (10 mg total) by mouth nightly. DUPIXENT PEN 300 mg/2 mL pen injector SUBQ injection pen Generic drug: dupilumab Inject 2 mL (300 mg total) under the skin once. One injection subcutaneous every 14 days fenofibrate 160 mg tablet Commonly known as: LOFIBRA fexofenadine 180 mg tablet Commonly known as: ORAL Take 1 tablet (180 mg total) by mouth in the morning. FIBER GUMMIES 2 gram tablet,chewable Generic drug: inulin Chew and swallow. fluticasone propionate 50 mcg/actuation nasal spray Commonly known as: FLONASE furosemide 40 mg tablet Commonly known as: LASIX Take 1 tablet (40 mg total) by mouth 2 (two) times a day before meals. HumuLIN R U-500 (Conc) Kwikpen injection Generic drug: insulin regular human U-500 concentrated Inject 150 Units of U-500 under the skin in the morning and 150 Units of U-500 at noon and 150 Units of U-500 in the evening and 150 Units of U-500 before bedtime. 150-190 units QID. HYDROcodone-acetaminophen 5-325 mg per tablet Commonly known as: NORCO Take 1 tablet by mouth every 4 (four) hours as needed for pain. IRON 325 (65 FE) mg tablet Generic drug: ferrous sulfate Take 1 tablet (325 mg total) by mouth daily with breakfast. xjrqm-krfhy-[id number]-[id number]-xxuopl 482-24-60-50 mg capsule Take by mouth. levothyroxine 150 MCG tablet Commonly known as: SYNTHROID, LEVOTHROID lisinopriL 10 mg tablet Commonly known as: PRINIVIL,ZESTRIL Take 1 tablet (10 mg total) by mouth in the morning. LYRICA 75 mg capsule Generic drug: pregabalin Take 1 capsule (75 mg total) by mouth 3 (three) times a day. metoprolol tartrate 50 mg tablet Commonly known as: LOPRESSOR Take 1.5 tablets (75 mg total) by mouth in the morning and 1.5 tablets (75 mg total) before bedtime. Indications: high blood pressure. montelukast 10 mg tablet Commonly known as: SINGULAIR multivitamin tablet,chewable Chew 2 capsules and swallow. ondansetron ODT 4 mg disintegrating tablet Commonly known as: ZOFRAN ODT Dissolve 1 tablet (4 mg total) on tongue every 8 (eight) hours as needed for nausea. pantoprazole 40 mg EC tablet Commonly known as: PROTONIX Take 1 tablet (40 mg total) by mouth in the morning and 1 tablet (40 mg total) before bedtime. Indications: gastroesophageal reflux disease. SUPER B-50 COMPLEX PLUS ORAL Take by mouth. SYMBICORT 160-4.5 mcg/actuation inhaler Generic drug: budesonide-formoteroL Inhale 2 puffs in the morning and 2 puffs before bedtime. Indications: bronchospasm prevention withCOPD. tiotropium bromide 1.25 mcg/actuation mist Inhale 2 puffs in the morning. traMADoL 50 mg tablet Commonly known as: ULTRAM Take 1 tablet (50 mg total) by mouth every 6 (six) hours as needed for pain. TRULICITY 4.5 mg/0.5 mL pen injector Generic drug: dulaglutide Inject 4.5 mg under the skin once a week. Sundays vitamin E (dl, acetate) 180 mg (400 unit) capsule Take 1 capsule (400 Units total) by mouth in the morning. STOP taking these medications cholecalciferol (vitamin D3) 2,000 units capsule doxycycline 100 MG tablet Commonly known as: ADOXA Where to Get Your Medications These medications were sent to [facility]/pharmacy #[id number] - [place], [place] - [address] [place] [address] [address] [facility] [id number] DAKIN'S SOLUTION 0.125 % solution external solution fluconazole 200 mg tablet >30 minutes were spent on discharging this patient. SHAYLA Pinedo, 02/27/2024 10:22 AM [facility] Internal Medicine 7AM-7PM (all facilities): EpicChat or page through Vocera. 7PM-7AM ([facility], [facility]): EpicChat or page, [phone]. 7PM-7AM ([facility] [place], [place] and [facility] Rehab): EpicChat or page through Vocera. This note is dictated with the use of M*Modal. Please note that this dictation was completed with computer voice recognition software. Quite often unanticipated grammatical, syntax, homophones, and other interpretive errors are inadvertently transcribed by the computer software. Please disregard these errors. Please excuse any errors that have escaped final proofreading. SHAYLA Pinedo 02/27/24 1138 Physician Attestation I, Ghanshyam Mayberry MD, personally performed a face to face diagnostic evaluation on this patient. I have reviewed the note authored by the advance practice provider including history, review of systems,physical examination,medical decision making and agree with the assessment and plan as written. I have seen and evaluated the patient, I have repeated the ramos portions of the physical exam and concur with the IRINEO findings. I have reviewed all laboratory findings and imaging reports/films. I agree with the plan as noted. [facility] Progress note* Telehealth Note - SHAYLA Bolaños - 02/27/2024 9:06 AM EDT Images from the original note were not included. Tele-Infectious Disease Telemedicine progress Note Consent Statement: I discussed risks, benefits, and alternatives of a real-time synchronous audiovisual consultation with the patient (and any accompanying persons) including the risks that the patient's personal health details and medical records will be discussed over real-time, synchronous, interactive video/audio/telecommunication technology,the visit will not be recorded without the express consent of both the provider and the patient, and that there are some limitations compared to zgiw-ly-hebo evaluations. We elected to proceed. Our team prefers to use indidebt for communication. We make every effort to keep the Treatment Teamin Epic updated. 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 She was receiving doxycycline and fluconazole as an outpatient. 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 Lopez Op note did not note any sign of infection Diabetes mellitus type 2 Not well controlled most recent A1c 9.6 Reinforced importance of strict glycemic control for healing Acute kidney injury on CKD stage 2 Subjective Interval History: Labs imaging and notes reviewed. Patient seen assessed at the bedside via video chat with assistance from RN she is not having any fevers white count 7.0 I would like for her to complete a full course ertapenem through today she can discharge after this is been completed Her wound has areas of necrosis already and the skin proximal to the wound are discolored Objective Physical Examination : BP 131/58 Pulse 89 Temp 36.8 C (98.2 F) (Oral) Resp 16 Ht 157.5 cm (5' 2 ) Wt 126.8 kg (279 lb 9.6 oz) SpO2 93% BMI 51.14 kg/m Temperature Range: Temp: 36.8 C (98.2 F) Temp Av.8 C (98.2 F) Min: 36.7 C (98 F) Max: 37 C (98.6 F) CONSTITUTIONAL - no acute distress SKIN - photo of abdominal wound below CARDIOVASCULAR -RRR RESPIRATORY - Good effort; Lungs clear to auscultation bilaterally with no wheezes, rhonchi, or crackles GASTROINTESTINAL - Abdominal wound photo below MUSCULOSKELETAL - No erythema, swelling, or nodules of the joints NEUROLOGIC - bulk and tone normal no atrophy noted Laboratory data: I have independently reviewed the following labs: Results from last 7 days Lab Units 02/27/24 05002/26/24 0502 02/25/24 0430 WBC X10E9/L 7.0 6.5 6.6 HEMOGLOBIN g/dL 8.4* 8.4* 8.8* HEMATOCRIT % 25.6* 25.4* 26.3* MCV fL 93 93 94 PLATELETS X10E9/L 239 232 240 NEUTROS ABS X10E9/L 4.4 3.8 4.1 LYMPHS ABS AUTO X10E9/L 1.8 1.8 1.7 MONOS ABS AUTO X10E9/L 0.5 0.6 0.5 EOS ABS AUTO X10E9/L 0.3 0.2 0.3 BASOS ABS AUTO X10E9/L 0.0 0.0 0.0 Results from last 7 days Lab Units 02/27/24 0508 02/26/24 0502 02/25/24 0430 SODIUM mmol/L 135 133* 137 POTASSIUM mmol/L 4.7 4.8 4.5 CHLORIDE mmol/L 105 102 107 CO2 mmol/L 21* 21* 22 BUN mg/dL 43* 46* 39* CREATININE mg/dL 1.22* 1.48* 1.25* CALCIUM mg/dL 8.7 8.5 8.4* ALK PHOS U/L 40 38* 39 ALT U/L 15 13 15 AST U/L 17 15 18 Results from last 7 days Lab Units 02/21/24 0438 02/20/24 1552 CRP mg/dL -- 10.2* HEMOGLOBIN A1C % 9.6* -- Imaging Studies: No results found. I have personally reviewed this study. Cultures: Microbiology Results Procedure Component Value Units Date/Time Tissue culture includes gram stain [[id number]] Collected: 02/24/24 1553 Specimen: Tissue from Abdomen Updated: 02/26/24 1040 Gram Stain Result 0 to 1 WHITE BLOOD CELLS/LPF 0 SQUAMOUS EPITHELIAL CELLS/LPF NO ORGANISMS SEEN Culture CULTURE IN PROGRESS Blood culture #2 [[id number]] Collected: 02/20/241917 Specimen: Blood Updated: 02/25/242202 Culture NO GROWTH 5 DAYS Blood culture #1 [[id number]] Collected: 02/20/241909 Specimen: Blood Updated: 02/25/242202 Culture NO GROWTH 5 DAYS Wound culture superficial includes gram stain [[id number]] (Abnormal) (Susceptibility) Collected: 02/20/24 1710 Specimen: Wound Swab Updated: 02/26/24 1122 Specimen Notes SPECIMEN 2 Gram Stain Result >25 WHITE BLOOD CELLS/LPF 0 to 1 SQUAMOUS EPITHELIAL CELLS/LPF MODERATE GRAM POSITIVE COCCI FEW GRAM NEGATIVE RODS RARE YEAST Culture MANY ACHROMOBACTER SPECIES ALONG WITH MANY NORMAL SKIN ERIC Susceptibility Achromobacter Species POONAM METHOD Amikacin >=64 Resistant Cefepime 32 Resistant Ceftazidime 4 Susceptible Ciprofloxacin >=4 Resistant Gentamicin >=16 Resistant IMIPENEM 1 Susceptible Levofloxacin >=8 Resistant Meropenem 1 Susceptible PIPERACIL/TAZOBACTAM <=4 Susceptible Tobramycin 8 Intermediate [1] [1] CLIA ID [id number] Wound culture superficial includes gram stain [[id number]] Collected: 02/20/24 1507 Specimen: Wound Swab Updated: 02/22/24 1025 Specimen Notes SPECIMEN 1 Gram Stain Result 10 to 24 WHITE BLOOD CELLS/LPF 0 to 1 SQUAMOUS EPITHELIAL CELLS/LPF FEW GRAM POSITIVE COCCI RARE GRAM NEGATIVE RODS Culture MANY MIXED GRAM POSITIVE AND GRAM NEGATIVE ORGANISMS NO STAPHYLOCOCCUS AUREUS ISOLATED NO PSEUDOMONAS AERUGINOSA ISOLATED NO BETA HEMOLYTIC STREPTOCOCCI ISOLATED Medications: allopurinoL, 300 mg, oral, Daily cyclobenzaprine, 10 mg, oral, Nightly fluconazole, 200 mg, oral, Daily fluticasone furoate-vilanteroL, 1 puff, inhalation, Daily heparin (porcine), 5,000 Units, subcutaneous, Q8H JONATHAN insulin lispro, 3-18 Units, subcutaneous, With meals and nightly levothyroxine, 150 mcg, oral, Daily meropenem, 1,000 mg, intravenous, Q12H metoprolol tartrate, 75 mg, oral, BID montelukast, 10 mg, oral, Nightly pantoprazole, 40 mg, oral, QAM AC pregabalin, 75 mg, oral, TID sodium hypochlorite, 1 Application, topical, BID vancomycin, 1,500 mg, intravenous, Q24H This progress note was completed using a voice test lead system. Every effort was made to ensure accuracy; however, inadvertent computerized test lead errors may be present. Thank you for allowing us to participate in the care of this patient. Rebecca Malloy CNP I prefer to be contacted via cell phone at [phone] SHAYLA Bolaños 02/27/24 1601 hoccer Work Phone: 1(390) 533-561509-27-2024 Miscellaneous Notes* Telehealth Note - SHAYLA Bolaños - 02/27/2024 9:06 AM EDT Images from the original note were not included. Tele-Infectious Disease Telemedicine progress Note Consent Statement: I discussed risks, benefits, and alternatives of a real-time synchronous audiovisual consultation with the patient (and any accompanying persons) including the risks that the patient's personal health details and medical records will be discussed over real-time, synchronous, interactive video/audio/telecommunication technology,the visit will not be recorded without the express consent of both the provider and the patient, and that there are some limitations compared to lagx-gu-snum evaluations. We elected to proceed. Our team prefers to use Bgiftyt for communication. We make every effort to keep the Treatment Teamin Epic updated. 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 She was receiving doxycycline and fluconazole as an outpatient. 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 Lopez Op note did not note any sign of infection Diabetes mellitus type 2 Not well controlled most recent A1c 9.6 Reinforced importance of strict glycemic control for healing Acute kidney injury on CKD stage 2 Subjective Interval History: Labs imaging and notes reviewed. Patient seen assessed at the bedside via video chat with assistance from RN she is not having any fevers white count 7.0 I would like for her to complete a full course ertapenem through today she can discharge after this is been completed Her wound has areas of necrosis already and the skin proximal to the wound are discolored Objective Physical Examination : BP 131/58 Pulse 89 Temp 36.8 C (98.2 F) (Oral) Resp 16 Ht 157.5 cm (5' 2 ) Wt 126.8 kg (279 lb 9.6 oz) SpO2 93% BMI 51.14 kg/m Temperature Range: Temp: 36.8 C (98.2 F) Temp Av.8 C (98.2 F) Min: 36.7 C (98 F) Max: 37 C (98.6 F) CONSTITUTIONAL - no acute distress SKIN - photo of abdominal wound below CARDIOVASCULAR -RRR RESPIRATORY - Good effort; Lungs clear to auscultation bilaterally with no wheezes, rhonchi, or crackles GASTROINTESTINAL - Abdominal wound photo below MUSCULOSKELETAL - No erythema, swelling, or nodules of the joints NEUROLOGIC - bulk and tone normal no atrophy noted Laboratory data: I have independently reviewed the following labs: Results from last 7 days Lab Units 02/27/24 0508 02/26/24 0502 02/25/24 0430 WBC X10E9/L 7.0 6.5 6.6 HEMOGLOBIN g/dL 8.4* 8.4* 8.8* HEMATOCRIT % 25.6* 25.4* 26.3* MCV fL 93 93 94 PLATELETS X10E9/L 239 232 240 NEUTROS ABS X10E9/L 4.4 3.8 4.1 LYMPHS ABS AUTO X10E9/L 1.8 1.8 1.7 MONOS ABS AUTO X10E9/L 0.5 0.6 0.5 EOS ABS AUTO X10E9/L 0.3 0.2 0.3 BASOS ABS AUTO X10E9/L 0.0 0.0 0.0 Results from last 7 days Lab Units 02/27/24 0508 02/26/24 0502 02/25/24 0430 SODIUM mmol/L 135 133* 137 POTASSIUM mmol/L 4.7 4.8 4.5 CHLORIDE mmol/L 105 102 107 CO2 mmol/L 21* 21* 22 BUN mg/dL 43* 46* 39* CREATININE mg/dL 1.22* 1.48* 1.25* CALCIUM mg/dL 8.7 8.5 8.4* ALK PHOS U/L 40 38* 39 ALT U/L 15 13 15 AST U/L 17 15 18 Results from last 7 days Lab Units 02/21/24 0438 02/20/24 1552 CRP mg/dL -- 10.2* HEMOGLOBIN A1C % 9.6* -- Imaging Studies: No results found. I have personally reviewed this study. Cultures: Microbiology Results Procedure Component Value Units Date/Time Tissue culture includes gram stain [[id number]] Collected: 02/24/24 155 Specimen: Tissue from Abdomen Updated: 02/26/24 104 Gram Stain Result 0 to 1 WHITE BLOOD CELLS/LPF 0 SQUAMOUS EPITHELIAL CELLS/LPF NO ORGANISMS SEEN Culture CULTURE IN PROGRESS Blood culture #2 [[id number]] Collected: 02/20/241917 Specimen: Blood Updated: 02/25/242202 Culture NO GROWTH 5 DAYS Blood culture #1 [[id number]] Collected: 02/20/241909 Specimen: Blood Updated: 02/25/242202 Culture NO GROWTH 5 DAYS Wound culture superficial includes gram stain [[id number]] (Abnormal) (Susceptibility) Collected: 02/20/24 171 Specimen: Wound Swab Updated: 02/26/24 1122 Specimen Notes SPECIMEN 2 Gram Stain Result >25 WHITE BLOOD CELLS/LPF 0 to 1 SQUAMOUS EPITHELIAL CELLS/LPF MODERATE GRAM POSITIVE COCCI FEW GRAM NEGATIVE RODS RARE YEAST Culture MANY ACHROMOBACTER SPECIES ALONG WITH MANY NORMAL SKIN REIC Susceptibility Achromobacter Species POONAM METHOD Amikacin >=64 Resistant Cefepime 32 Resistant Ceftazidime 4 Susceptible Ciprofloxacin >=4 Resistant Gentamicin >=16 Resistant IMIPENEM 1 Susceptible Levofloxacin >=8 Resistant Meropenem 1 Susceptible PIPERACIL/TAZOBACTAM <=4 Susceptible Tobramycin 8 Intermediate [1] [1] CLIA ID [id number] Wound culture superficial includes gram stain [[id number]] Collected: 02/20/24 1507 Specimen: Wound Swab Updated: 02/22/24 1025 Specimen Notes SPECIMEN 1 Gram Stain Result 10 to 24 WHITE BLOOD CELLS/LPF 0 to 1 SQUAMOUS EPITHELIAL CELLS/LPF FEW GRAM POSITIVE COCCI RARE GRAM NEGATIVE RODS Culture MANY MIXED GRAM POSITIVE AND GRAM NEGATIVE ORGANISMS NO STAPHYLOCOCCUS AUREUS ISOLATED NO PSEUDOMONAS AERUGINOSA ISOLATED NO BETA HEMOLYTIC STREPTOCOCCI ISOLATED Medications: allopurinoL, 300 mg, oral, Daily cyclobenzaprine, 10 mg, oral, Nightly fluconazole, 200 mg, oral, Daily fluticasone furoate-vilanteroL, 1 puff, inhalation, Daily heparin (porcine), 5,000 Units, subcutaneous, Q8H JONATHAN insulin lispro, 3-18 Units, subcutaneous, With meals and nightly levothyroxine, 150 mcg, oral, Daily meropenem, 1,000 mg, intravenous, Q12H metoprolol tartrate, 75 mg, oral, BID montelukast, 10 mg, oral, Nightly pantoprazole, 40 mg, oral, QAM AC pregabalin, 75 mg, oral, TID sodium hypochlorite, 1 Application, topical, BID vancomycin, 1,500 mg, intravenous, Q24H This progress note was completed using a voice test lead system. Every effort was made to ensure accuracy; however, inadvertent computerized test lead errors may be present. Thank you for allowing us to participate in the care of this patient. Rebecca Malloy CNP I prefer to be contacted via cell phone at [phone] SHAYLA Bolaños 02/27/24 1601 * Plan of Care - S. Mirela Soliz RN - 02/27/2024 9:00 AM EDT Problem: Pain Goal: Patient goal is pain score less than 4, able to rest, and participant in treatment plan as appropriate Description: INTERVENTIONS: 1. Encourage patient or legal outside sales representative insurance to report early pain and ask for pain medicine when needed 2. Assess pain using appropriate pain scale and include the scale used when documenting 3. Administer analgesics based on type and severity of pain and evaluate response within appropriate time frame 4. Implement non-pharmacological measures as appropriate and evaluate response 5. Consider cultural and social influences on pain and pain management 6. Notify LIP if interventions ineffective or patient reports new pain 7. Monitor vital signs including pulse ox, end-tidal CO2 based on pain intervention 8. Reassess pain per policy 9. Teach patient or legal outside sales representative insurance interventions for comforting Outcome: Progressing Note: Evaluation of progress towards goal: Pt able to report pain according to 0/10 pain scale. Medicating patient for pain per orders. * Discharge Planning Note - Alona Okeefe - 02/27/2024 8:29 AM EDT DISCHARGE PLANNING NOTE Mary Jane Foy [facility]ly [facility] Patient will complete IV Meropenem course at 4pm today. Discharge plan on oral antibiotics as per infectious disease. Dressing Changes: Umm Wbeer CNP for wound care is recommending Dakins cleanse and dressing changesBID. Patient and her mother will be teachable caregivers and will complete dressing changes. [facility] to provide education. Plan of Care: [facility] [phone] fax CRF at Discharge Follow up appointments as below: Appointment with Ann Fournier (PCP) scheduled for March 03, 2024 @ 1100. Follow up with Wound Clinic scheduled for February 27, 2024. Umm Weber and Fiorella Martinez with wound care were notified that appointment needs rescheduled. - Alona Okeefe 02/27/24 8:29 AM CRF sent to [facility] via Aut[employer] - Alona Okeefe 02/27/24 12:02 PM * Plan of Care - Briseida Shaver RN - 02/27/2024 12:33 AM EDT Problem: Safety Goal: Patient will be injury free during hospitalization Description: INTERVENTIONS: 1. Assess patient's risk for falls and implement fall prevention plan of care per policy 2. Provide and maintain a safe environment 3. Proper use of double Identifiers 4. Medication administration using the 5 rights 5. Hand hygiene 6. Specimens are labeled at the bedside 7. Instruct patient/ patient outside sales representative insurance about use of safety devices 8. Include patient/ patient outside sales representative insurance in decisions related to safety Outcome: Progressing Note: Evaluation of progress towards goal: ongoing Problem: Knowledge Deficit Goal: Patient/patient outside sales representative insurance demonstrates understanding of disease process, treatment plan,medications, and discharge instructions Description: INTERVENTIONS 1. Complete learning assessment and assess knowledge base 2. Provide teaching at level of understanding 3. Provide teaching via preferred learning method(s) Outcome: Progressing Note: Evaluation of progress towards goal: ongoing Problem: Activity Intolerance/Impaired Mobility Goal: Mobility/activity is maintained at optimum level for patient Description: Patient's goal is: INTERVENTIONS 1. Assess and monitor patient barriers to mobility and need for assistive/adaptive devices 2. Assess patient's emotional response to limitations 3. Collaborate with interdisciplinary teams and initiate plans and interventions as ordered 4. Encourage independent activity per tolerance 5. Maintain proper body alignment 6. Perform active/passive ROM as tolerated/ordered 7. Coordinate activities to conserve energy 8. Reposition patient 9. Ensure adequate rest/sleep time Outcome: Progressing Note: Evaluation of progress towards goal: ongoing * Wound Care - Fiorella Martinez RN - 02/26/2024 10:26 AM EDT Images from the original note were not included. WOUND CARE NOTE Date of Admission: 02/20/2024 3:27 PM Reason for Consult: Abdominal wounds History of Present Illness: Authumn D [facility]ly [facility] who presents with Abdominal wounds due to a spider bite . Wound has been present since since January 03. Patient has been being seen in the wound clinic. She was sent down to the ER after being seen on Friday02/20/24 due to possible cellulitis of the abdomen.Dr. Amaya debride wound on 02/24/24 in surgery. Pain is worsened with touching. Pain is improved with Medication and rest. Current wound pain 4/10. Vital Signs: BP (!) 93/34 Pulse 76 Temp 36.6 C (97.8 F) (Oral) Resp 16 Ht 157.5 cm (5' 2 ) Wt 126.8 kg (279 lb 9.6 oz) SpO2 91% BMI 51.14 kg/m ID is consulted and managing patient antibiotics Wound Assessment: Wound 02/24/24 Incision Abdomen N/A (Active) Wound Image 02/26/24 1000 Site Assessment Clean;Dry 02/26/24 1004 Molly-wound Assessment Dark edges; Blanchable 02/26/24 1004 Shape See photo 02/26/24 1004 Wound Length (cm) 5.7 cm 02/26/24 1000 Wound Width (cm) 12.3 cm 02/26/24 1000 Wound Surface Area (cm^2) 70.11 cm^2 02/26/24 1000 Wound Depth (cm) 2.7 cm 02/26/24 1000 Wound Volume (cm^3) 189.297 cm^3 02/26/24 1000 Closure Open to air 02/25/24 1000 Drainage Description Serosanguineous 02/26/24 1004 Drainage Amount Scant 02/26/24 1004 Treatments Cleansed with;Dakins solution 02/26/24 1004 Debridement Performed? N 02/26/24 1000 Dressing Type Dry Dressing 02/26/24 1004 Dressing Changed Changed 02/26/24 1004 Dressing Status Clean;Dry;Intact 02/26/24 1004 Tunneling 1 (cm) 3.2 cm 02/26/24 1000 Tunneling 1 Clock Position of Wound 1 o'clock 02/26/24 1000 Pressure Injury Stage 3 02/26/24 1000 Plan of care discussed with wound care services MEDICAL PSYCHOTHERAPIST Plan is for patient to go home with [facility] Wound Plan Dressing: Apply moistened gauze with 0.125% Dakins then secure with dry dressing. Change BID Follow up: Will continue to follow while inpatient. Patient has a follow up appointment in the wound clinic. Thank you for allowing us to participate in the care of this patient. Please feel free to call us with any questions or concerns. Fiorella Martinez RN [facility] Preferred contact via Ext. [phone], [employer] Chat or [facility] [place] TRUCKING SUPERVISOR: Quinton MCGUIRE, JOAN * Telehealth Note - SHAYLA Bolaños - 02/26/2024 9:34 AM EDT Images from the original note were not included. Tele-Infectious Disease Telemedicine progress Note Consent Statement: I discussed risks, benefits, and alternatives of a real-time synchronous audiovisual consultation with the patient (and any accompanying persons) including the risks that the patient's personal health details and medical records will be discussed over real-time, synchronous, interactive video/audio/telecommunication technology,the visit will not be recorded without the express consent of both the provider and the patient, and that there are some limitations compared to [id number]-om-[id number] evaluations. We elected to proceed. Our team prefers to use Bgiftyt for communication. We make every effort to keep the Treatment Teamin Epic updated. Patient name: Mary Jane Foy Formerly [facility] Patient Today's Date and Time: 02/26/2024, 9:35 AM Admission Date: 02/20/2024 Impression /Plan: Open abdominal wall wound Abdominal wall infection Presented with chronic ulcers to right lower abdomen, wound care clinic on January 29. She was receiving doxycycline and fluconazole as an outpatient. 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 She has completed 7 days of vancomycin She can dc 5 more days of fluconazole to complete a 7 day course Discussed with Dr. Lopez Op note did not note any sign of infection Diabetes mellitus type 2 Not well controlled most recent A1c 9.6 Reinforced importance of strict glycemic control for healing Acute kidney injury on CKD stage 2 Subjective Interval History: And notes reviewed. Patient seen assessed at the bedside via videochat with assistance from RN no fevers chills or chest pain. Objective Physical Examination : BP (!) 93/34 Pulse 76 Temp 36.6 C (97.8 F) (Oral) Resp 16 Ht 157.5 cm (5' 2 ) Wt 126.8 kg(279 lb 9.6 oz) SpO2 91% BMI 51.14 kg/m Temperature Range: Temp: 36.6 C (97.8 F) Temp Av.7 C (98 F) Min: 36.4 C (97.5 F) Max: 36.9 C (98.4 F) CONSTITUTIONAL - chronically ill appearing SKIN -pale CARDIOVASCULAR -RRR RESPIRATORY - non-labored GASTROINTESTINAL - abdominal wound photo below MUSCULOSKELETAL - No erythema, swelling, or nodules of the joints NEUROLOGIC - bulk and tone normal no atrophy noted Laboratory data: I have independently reviewed the following labs: Results from last 7 days Lab Units 02/26/24 0502 02/25/24 0430 02/24/24 0431 WBC X10E9/L 6.5 6.6 6.4 HEMOGLOBIN g/dL 8.4* 8.8* 8.8* HEMATOCRIT % 25.4* 26.3* 26.4* MCV fL 93 94 94 PLATELETS X10E9/L 232 240 224 NEUTROS ABS X10E9/L 3.8 4.1 3.7 LYMPHS ABS AUTO X10E9/L 1.8 1.7 1.9 MONOS ABS AUTO X10E9/L 0.6 0.5 0.6 EOS ABS AUTO X10E9/L 0.2 0.3 0.3 BASOS ABS AUTO X10E9/L 0.0 0.0 0.1 Results from last 7 days Lab Units 02/26/24 0502 02/25/24 0430 02/24/24 0431 SODIUM mmol/L 133* 137 133* POTASSIUM mmol/L 4.8 4.5 4.7 CHLORIDE mmol/L 102 107 102 CO2 mmol/L 21* 22 21* BUN mg/dL 46* 39* 45* CREATININE mg/dL 1.48* 1.25* 1.36* CALCIUM mg/dL 8.5 8.4* 8.4* ALK PHOS U/L 38* 39 38* ALT U/L 13 15 14 AST U/L 15 18 16 Results from last 7 days Lab Units 02/21/24 0438 02/20/24 1552 CRP mg/dL -- 10.2* HEMOGLOBIN A1C % 9.6* -- Imaging Studies: No results found. I have personally reviewed this study. Cultures: Microbiology Results Procedure Component Value Units Date/Time Tissue culture includes gram stain [[id number]] Collected: 02/24/24 1553 Specimen: Tissue from Abdomen Updated: 02/25/24 0843 Gram Stain Result 0 to 1 WHITE BLOOD CELLS/LPF 0 SQUAMOUS EPITHELIAL CELLS/LPF NO ORGANISMS SEEN Culture PENDING Blood culture #2 [[id number]] Collected: 02/20/241917 Specimen: Blood Updated: 02/25/242202 Culture NO GROWTH 5 DAYS Blood culture #1 [[id number]] Collected: 02/20/241909 Specimen: Blood Updated: 02/25/242202 Culture NO GROWTH 5 DAYS Wound culture superficial includes gram stain [[id number]] (Abnormal) Collected: 02/20/24 1710 Specimen: Wound Swab Updated: 02/25/24 1053 Specimen Notes SPECIMEN 2 Gram Stain Result >25 WHITE BLOOD CELLS/LPF 0 to 1 SQUAMOUS EPITHELIAL CELLS/LPF MODERATE GRAM POSITIVE COCCI FEW GRAM NEGATIVE RODS RARE YEAST Culture MANY ACHROMOBACTER SPECIES ALONG WITH MANY NORMAL SKIN ERIC Wound culture superficial includes gram stain [[id number]] Collected: 02/20/24 1507 Specimen: Wound Swab Updated: 02/22/24 1025 Specimen Notes SPECIMEN 1 Gram Stain Result 10 to 24 WHITE BLOOD CELLS/LPF 0 to 1 SQUAMOUS EPITHELIAL CELLS/LPF FEW GRAM POSITIVE COCCI RARE GRAM NEGATIVE RODS Culture MANY MIXED GRAM POSITIVE AND GRAM NEGATIVE ORGANISMS NO STAPHYLOCOCCUS AUREUS ISOLATED NO PSEUDOMONAS AERUGINOSA ISOLATED NO BETA HEMOLYTIC STREPTOCOCCI ISOLATED Medications: allopurinoL, 300 mg, oral, Daily cyclobenzaprine, 10 mg, oral, Nightly fluconazole, 200 mg, oral, Daily fluticasone furoate-vilanteroL, 1 puff, inhalation, Daily heparin (porcine), 5,000 Units, subcutaneous, Q8H JONATHAN insulin lispro, 3-18 Units, subcutaneous, With meals and nightly levothyroxine, 150 mcg, oral, Daily meropenem, 1,000 mg, intravenous, Q12H metoprolol tartrate, 75 mg, oral, BID montelukast, 10 mg, oral, Nightly pantoprazole, 40 mg, oral, QAM AC pregabalin, 75 mg, oral, TID sodium hypochlorite, 1 Application, topical, BID vancomycin, 1,500 mg, intravenous, Q24H This progress note was completed using a voice test lead system. Every effort was made to ensure accuracy; however, inadvertent computerized test lead errors may be present. Thank you for allowing us to participate in the care of this patient. Rebecca Malloy CNP I prefer to be contacted via cell phone at [phone] SHAYLA Bolaños 02/26/24 2114 SHAYLA Bolaños 02/26/242115 * Plan of Care - Lily Gomez RN - 02/26/2024 8:59 AM EDT Problem: Pain Goal: Patient goal is pain score less than 4, able to rest, and participant in treatment plan as appropriate Description: INTERVENTIONS: 1. Encourage patient or legal outside sales representative insurance to report early pain and ask for pain medicine when needed 2. Assess pain using appropriate pain scale and include the scale used when documenting 3. Administer analgesics based on type and severity of pain and evaluate response within appropriate time frame 4. Implement non-pharmacological measures as appropriate and evaluate response 5. Consider cultural and social influences on pain and pain management 6. Notify LIP if interventions ineffective or patient reports new pain 7. Monitor vital signs including pulse ox, end-tidal CO2 based on pain intervention 8. Reassess pain per policy 9. Teach patient or legal outside sales representative insurance interventions for comforting Outcome: Progressing Note: Evaluation of progress towards goal: Pain assessed and treated accordingly. Problem: Safety Goal: Patient will be injury free during hospitalization Description: INTERVENTIONS: 1. Assess patient's risk for falls and implement fall prevention plan of care per policy 2. Provide and maintain a safe environment 3. Proper use of double Identifiers 4. Medication administration using the 5 rights 5. Hand hygiene 6. Specimens are labeled at the bedside 7. Instruct patient/ patient outside sales representative insurance about use of safety devices 8. Include patient/ patient outside sales representative insurance in decisions related to safety Outcome: Progressing Note: Evaluation of progress towards goal: PT is free of falls, hourly rounding is completed, area is kept clear. Problem: Infection Goal: Absence of infection during hospitalization Description: Interventions: 1. Assess and monitor for signs and symptoms of infection 2. Monitor lab/diagnostic results 3. Monitor all insertion sites i.e., indwelling lines, tubes and drains 4. Monitor endotracheal (as able) and nasal secretions for changes in amount and color 5. Administer medications as ordered 6. Instruct and encourage patient and family to use good hand hygiene technique 7. Identify and instruct patient/patient outside sales representative insurance in use of appropriate isolation precautionsfor identified infection/symptoms 8. Provide and discuss with patient/patient outside sales representative insurance on educational MDRO sheet 9. Encourage and monitor nutritional status daily and consult retort feeder ground bone if indicated 10. Implement neutropenic guidelines as needed 11. Review exposure to history of communicable disease and recent travel history on admission 12. Encourage annual influenza vaccine 13. Encourage pneumonia vaccine Outcome: Progressing Note: Evaluation of progress towards goal: Pt assessed and monitored for signs and symptoms of infection, lab and diagnostic results monitored as needed, administer medications as needed. Problem: Knowledge Deficit Goal: Patient/patient outside sales representative insurance demonstrates understanding of disease process, treatment plan,medications, and discharge instructions Description: INTERVENTIONS 1. Complete learning assessment and assess knowledge base 2. Provide teaching at level of understanding 3. Provide teaching via preferred learning method(s) Outcome: Progressing Note: Evaluation of progress towards goal: Learning assessment and knowledge base assessed, teaching provided at an understandable level as needed. Problem: Glucose Imbalance Goal: Clinical indication of glucose balance is achieved Description: Patient's goal is: INTERVENTIONS 1. Monitor blood glucose levels as ordered 2. Administer medications as ordered 3. Notify physician of ineffective treatment plan Outcome: Progressing Note: Evaluation of progress towards goal: Glucose to be monitored and treated accordingly * Plan of Care - Yandy Crooks RN - 02/26/2024 12:49 AM EDT Problem: Pain Goal: Patient goal is pain score less than 4, able to rest, and participant in treatment plan as appropriate Description: INTERVENTIONS: 1. Encourage patient or legal outside sales representative insurance to report early pain and ask for pain medicine when needed 2. Assess pain using appropriate pain scale and include the scale used when documenting 3. Administer analgesics based on type and severity of pain and evaluate response within appropriate time frame 4. Implement non-pharmacological measures as appropriate and evaluate response 5. Consider cultural and social influences on pain and pain management 6. Notify LIP if interventions ineffective or patient reports new pain 7. Monitor vital signs including pulse ox, end-tidal CO2 based on pain intervention 8. Reassess pain per policy 9. Teach patient or legal outside sales representative insurance interventions for comforting Outcome: Progressing Note: Evaluation of progress towards goal: pain controlled with norco. Offer pain med prior to dressing changes * Plan of Care - Lilibeth. Mirela Soliz RN - 02/25/2024 5:06 PM EDT Problem: Pain Goal: Patient goal is pain score less than 4, able to rest, and participant in treatment plan as appropriate Description: INTERVENTIONS: 1. Encourage patient or legal outside sales representative insurance to report early pain and ask for pain medicine when needed 2. Assess pain using appropriate pain scale and include the scale used when documenting 3. Administer analgesics based on type and severity of pain and evaluate response within appropriate time frame 4. Implement non-pharmacological measures as appropriate and evaluate response 5. Consider cultural and social influences on pain and pain management 6. Notify LIP if interventions ineffective or patient reports new pain 7. Monitor vital signs including pulse ox, end-tidal CO2 based on pain intervention 8. Reassess pain per policy 9. Teach patient or legal outside sales representative insurance interventions for comforting Outcome: Progressing Note: Evaluation of progress towards goal: Pt able to report pain according to 0/10 pain scale. Medicating patient for pain per orders. * Telehealth Note - SHAYLA Esposito - 02/25/2024 1:52 PM EDT Images from the original note were not included. Division of Infectious Diseases - Progress Note [facility] - TeleMedicine During Business Hours: Please use indidebt for communication. After Hours: Please call for our answering service. Patient name: Mary Jane Foy Formerly [facility] Patient Today's Date and Time: 02/25/2024, 1:52 PM Admission Date: 02/20/2024 Primary Care Physician: SHAYLA KRAFT Impression and Recommendations:: Open abdominal wall wound Abdominal wall infection The patient presents with two chronic ulcers on the right lower abdomen, initially evaluated at [facility] on 01/30/2024. She has been following with Wound Care now for several weeks. There was concern for increasing erythema and drainage with a yellowish exudate from the wounds. Wound care consult in potential consideration for surgical debridement is planned for later this afternoon. She has been on doxycycline and fluconazole as an outpatient. 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 Cont. Vanco for gram positive coverage. For the achromobacter , start meropenem. Follow sensitives. Unlikely to have many alternatives given her allergy profile. Will likely need IV coverage at discharge. Start diflucan for the yeast. 02/23: S/p debridement. OP note is pending Follow cultures Subjective Interval History:: Pt seen at bedside via vidyo connect. No fevers or chills. No n/v/d. Tolerating meropenem. Understands she will likely need IV atbx. Objective Physical Examination : BP 113/47 Pulse 69 Temp 36.8 C (98.2 F) (Oral) Resp 17 Ht 157.5 cm (5' 2 ) Wt 123.9 kg (273 lb 3.2 oz) SpO2 91% BMI 49.97 kg/m Temperature Range: Temp: 36.8 C (98.2 F) Temp Av.7 C (98.1 F) Min: 36.4 C (97.6 F) Max: 37.2 C(99 F) *Pt seen via vidyo connect. Portions of the exam pulled from hospitalist documentation and via assessment from the RN at bedside* Constitutional: awake and alert. Cardiovascular: S1, S2 Respiratory: clear non labored. Gastrointestinal/Abdomen: abdominal wound pictured below Musculoskeletal/Extremities: No cyanosis, clubbing, edema, or effusions. Skin: warm, dry, no rashes or lesions noted Neurologic: Bulk and tone are normal. No atrophy is noted. Laboratory data: I have independently reviewed the following labs: Results from last 7 days Lab Units 02/25/24 0430 02/24/24 0431 02/23/24 0427 WBC X10E9/L 6.6 6.4 6.4 HEMOGLOBIN g/dL 8.8* 8.8* 8.8* HEMATOCRIT % 26.3* 26.4* 26.5* MCV fL 94 94 94 PLATELETS X10E9/L 240 224 222 NEUTROS ABS X10E9/L 4.1 3.7 3.5 LYMPHS ABS AUTO X10E9/L 1.7 1.9 2.0 MONOS ABS AUTO X10E9/L 0.5 0.6 0.6 EOS ABS AUTO X10E9/L 0.3 0.3 0.2 BASOS ABS AUTO X10E9/L 0.0 0.1 0.1 Results from last 7 days Lab Units 02/25/24 04302/24/2443002/23/24 0427 SODIUM mmol/L 137 133* 135 POTASSIUM mmol/L 4.5 4.7 4.5 CHLORIDE mmol/L 107 102 104 CO2 mmol/L 22 21* 23 BUN mg/dL 39* 45* 39* CREATININE mg/dL 1.25* 1.36* 1.48* CALCIUM mg/dL 8.4* 8.4* 8.4* ALBUMIN g/dL 2.6* 2.6* 2.5* ALK PHOS U/L 39 38* 36* ALT U/L 15 14 15 AST U/L 18 16 15 Results from last 7 days Lab Units 02/21/24 0438 02/20/24 1552 CRP mg/dL -- 10.2* FERRITIN ng/mL 568* -- Results from last 7 days Lab Units 02/21/24437 HEMOGLOBIN A1C % 9.6* Invalid input(s): BILIRUBINU , BILIRUBINNU Imaging Studies: Cultures: Microbiology Results Procedure Component Value Units Date/Time Tissue culture includes gram stain [[id number]] Collected: 02/24/24 155 Specimen: Tissue from Abdomen Updated: 02/25/24 0843 Gram Stain Result 0 to 1 WHITE BLOOD CELLS/LPF 0 SQUAMOUS EPITHELIAL CELLS/LPF NO ORGANISMS SEEN Culture PENDING Blood culture #2 [[id number]] Collected: 02/20/241917 Specimen: Blood Updated: 02/24/242205 Culture NO GROWTH 4 DAYS Blood culture #1 [[id number]] Collected: 02/20/241909 Specimen: Blood Updated: 02/24/242204 Culture NO GROWTH 4 DAYS Wound culture superficial includes gram stain [[id number]] (Abnormal) Collected: 02/20/24 1710 Specimen: Wound Swab Updated: 02/25/24 1053 Specimen Notes SPECIMEN 2 Gram Stain Result >25 WHITE BLOOD CELLS/LPF 0 to 1 SQUAMOUS EPITHELIAL CELLS/LPF MODERATE GRAM POSITIVE COCCI FEW GRAM NEGATIVE RODS RARE YEAST Culture MANY ACHROMOBACTER SPECIES ALONG WITH MANY NORMAL SKIN ERIC Wound culture superficial includes gram stain [[id number]] Collected: 02/20/24 1507 Specimen: Wound Swab Updated: 02/22/24 1025 Specimen Notes SPECIMEN 1 Gram Stain Result 10 to 24 WHITE BLOOD CELLS/LPF 0 to 1 SQUAMOUS EPITHELIAL CELLS/LPF FEW GRAM POSITIVE COCCI RARE GRAM NEGATIVE RODS Culture MANY MIXED GRAM POSITIVE AND GRAM NEGATIVE ORGANISMS NO STAPHYLOCOCCUS AUREUS ISOLATED NO PSEUDOMONAS AERUGINOSA ISOLATED NO BETA HEMOLYTIC STREPTOCOCCI ISOLATED Medications: allopurinoL, 300 mg, oral, Daily cyclobenzaprine, 10 mg, oral, Nightly fluconazole, 200 mg, oral, Daily fluticasone furoate-vilanteroL, 1 puff, inhalation, Daily heparin (porcine), 5,000 Units, subcutaneous, Q8H JONATHAN insulin lispro, 3-18 Units, subcutaneous, With meals and nightly levothyroxine, 150 mcg, oral, Daily meropenem, 1,000 mg, intravenous, Q12H metoprolol tartrate, 75 mg, oral, BID montelukast, 10 mg, oral, Nightly pantoprazole, 40 mg, oral, QAM AC pregabalin, 75 mg, oral, TID sodium hypochlorite, 1 Application, topical, BID vancomycin, 1,500 mg, intravenous, Q24H Thank you for allowing us to participate in the care of this patient. Please call with questions. Erin Chaudhari DNP, CNP From 7AM-7PM: From 7AM-7PM: Please use indidebt for communication From 7PM-7AM: Please call for our answering service. Tele-Infectious DiseaseTelemedicine Consult Note Consent Statement: I discussed risks, benefits, and alternatives of a real-time synchronous audiovisual consultation with the patient (and any accompanying persons) including the risks that the patient's personal health details and medical records will be discussed over real-time, synchronous, interactive video/audio/telecommunication technology, the visit will not be recorded without the express consent of both the provider and the patient, and that there are some limitations compared to [id number]-[id number]-[id number] evaluations. We elected to proceed. SHAYLA Esposito 02/24/24 [id number] SHAYLA Esposito 02/25/24 9137 * Discharge Planning Note - Michelle Camarena - 02/25/2024 1:45 PM EDT DISCHARGE PLANNING NOTE Referral sent to [facility] ([place]- P# ; F# ) ([place], [place] P# ; F#), [address] [facility] [place] (P# ; F# ); [place] (P# [phone] ; F# [phone]) and [facility] (formerly [facility]) (P# ; F# ) ; [place](P# ; F# ) ; [facility] (P# ; F# ); [facility] (P# ; F# ) ; [facility] (P# ; F# ) ; [facility] (P# ; F# ) [place] (P# ; F# ) * Discharge Planning Note - Michelle Camarena - 02/25/2024 12:02 PM EDT DISCHARGE PLANNING NOTE Referral sent to [facility] [employer] [place] [place] [facility] - (P# ; F# ) and [facility] ([place]- P# ; F# ) ([place], [place] P# ; F#) * Discharge Planning Note - Alona Okeefe - 02/25/2024 11:12 AM EDT DISCHARGE PLANNING NOTE Mary Jane Foy [facility] [facility] met with patient at bedside. We currently reviewed where we are at with treatment and discharge plan. We discuss dressing changes at home. Patient states her mom lives with her and between herself and her mom she feels they can be taught to change dressings on abdomen. We discussed infectious disease note from yesterday and recommendation for IV Merropenum (though the note doesn'tspecify if she will need home therapy). Patient states she feels she can connect herself to her IV antibiotics. Patient would like a referral to [facility] first. And if they are unable to accept we candiscuss other options. Discharge Plan: Possible Option #1 - Home on oral antibiotics. Possible Option #2 - Home with IV PICC line and IV antibiotics administered at home. Will need referral to [facility] and [facility] pending acceptance. Tasked to the transition center today. Plan of Care: [facility] [phone] or [phone] fax CRF at Discharge Dressing Changes: Umm Weber CNP for wound care is recommending Dakins cleanse and dressing changesBID. Patient and her mother will be teachable caregivers and will complete dressing changes[facility]. Follow up appointments as below: Appointment with Ann Fournier (PCP) scheduled for March 03, 2024 @ 1100. Follow up with Wound Clinic scheduled for February 27, 2024. - Alona Maldonado 02/25/24 11:12 AM [facility] declined patient. Referrals fo [facility] sent to the following: Alexis Cano. Patient is aware of [facility] declined and agrees with the above referrals. - Alona Maldonado 02/25/24 12:32 PM Patient was accepted [facility] and [facility] did not have a final response yet. Patient was agreeable to acceptance of any of the above referrals. Discharge Plan: Possible Option #1 - Home on oral antibiotics. Possible Option #2 - Home with IV PICC line and IV antibiotics administered at home. Will need referral to [facility] (accepted) and [facility] (accepted). Plan of Care: [facility] [phone] fax CRF at Discharge Dressing Changes: Umm Weber CNP for wound care is recommending Dakins cleanse and dressing changesBID. Patient and her mother will be teachable caregivers and will complete dressing changes. [facility] to provide education. Follow up appointments as below: Appointment with Ann Fournier (PCP) scheduled for March 03, 2024 @ 1100. Follow up with Wound Clinic scheduled for February 27, 2024. - Alona Okeefe 02/25/24 1:58 PM * Discharge Planning Note - Alona Okeefe - 02/25/2024 8:33 AM EDT [facility] made as below. Discharge Plan: Possible Option #1 - Home on oral antibiotics. Possible Option #2 - Home with IV PICC line and IV antibiotics administered at home. Will need referral to [facility] and [facility]. This option must be used if IV antibiotics are ordered > daily. Possible Option #3 - Home with IV PICC line and IV antibiotics administered at [facility]. Discharge IV antibiotics should be ordered as a therapy plan and first dose scheduled with [facility]. This option can be used only if antibiotics are ordered as a daily infusion. Follow up appointments as below: Appointment with Ann Fournier (PCP) in 12 days from today. Tasked to the transition center. Jayleen Nicole (Wound Clinic) scheduled for February 27, 2024 @ 1:30 p.m. - Alona Okeefe 02/25/24 8:33 AM * Plan of Care - Lissette Acuña RN - 02/24/2024 8:34 PM EDT Problem: Pain Goal: Patient goal is pain score less than 4, able to rest, and participant in treatment plan as appropriate Description: INTERVENTIONS: 1. Encourage patient or legal outside sales representative insurance to report early pain and ask for pain medicine when needed 2. Assess pain using appropriate pain scale and include the scale used when documenting 3. Administer analgesics based on type and severity of pain and evaluate response within appropriate time frame 4. Implement non-pharmacological measures as appropriate and evaluate response 5. Consider cultural and social influences on pain and pain management 6. Notify LIP if interventions ineffective or patient reports new pain 7. Monitor vital signs including pulse ox, end-tidal CO2 based on pain intervention 8. Reassess pain per policy 9. Teach patient or legal outside sales representative insurance interventions for comforting Outcome: Progressing Note: Evaluation of progress towards goal: Pt able to report pain according to 0/10 pain scale. Medicating patient for pain per orders. * Op Note - Balaji Amaya MD - 02/24/2024 3:17 PM EDT Operative Note: Procedure Date: 02/24/2024 Pre-operative Diagnosis: Necrotic wound of abdominal wall Post-operative Diagnosis: same Surgeon: Surgeons and Role: * Balaji Amaya MD - Primary Procedure: Debridement of abdominal wall wound, skin and subcutaneous tissue Anesthesia: MAC EBL: Minimal Specimens: Tissue culture Complications: none immediate Findings: necrotic abdominal wall wound RLQ, no signs of infection. Skin and subcu tissues with black eschar and exudate. Pre-debridement measurements two wounds 7.5 x 3cm and 3.5 x 4 cm. post-debridement measurements 11 x 4 x 2 cm, one larger wound Indications: Mary Jane Foy Formerly [facility] is a 53 y.o. female with necrotic wound of abdominal wall. The plan for debridemt was discussed with the patient and family. After a thorough explanation of the risks, benefits, and alternatives the patient agreed to proceed with the operative intervention. Procedure in Detail: The patient was brought to the operating room placed in supine position. Cardiopulmonary monitoringwas initiated. EPC cuffs were placed. Monitored anesthesia care was provided. The patient's abdomenwas prepped and draped in usual sterile fashion. A critical surgical time-out was performed. The wound was examined as above. Pre debridement measurements were obtained. Using sharp dissectionthe skin was incised and incision deepened to the subcutaneous tissue. Using electrocautery all necrotic and nonviable tissue was excised. There was a small skin bridge between the 2 wounds. This wasexcised. Debridement was performed down to the and including the subcutaneous tissue. Post debridement measurements were taken as above. Hemostasis was assured. The wound was packed with wet to dry dressing. That concluded the procedure. No signs of infection were noted. The patient tolerated the procedure well and there were no intraoperative complications. Balaji Amaya MD [facility] General Surgery [place] * Telehealth Note - SHAYLA Esposito - 02/24/2024 2:30 PM EDT Images from the original note were not included. Division of Infectious Diseases - Progress Note [facility] - TeleMedicine During Business Hours: Please use indidebt for communication. After Hours: Please call for our answering service. 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 She has been following with Wound Care now for several weeks. There was concern for increasing erythema and drainage with a yellowish exudate from the wounds. Wound care consult in potential consideration for surgical debridement is planned for later this afternoon. She has been on doxycycline and fluconazole as an outpatient. 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 Cont. Vanco for gram positive coverage. For the achromobacter , start meropenem. Follow sensitives. Unlikely to have many alternatives given her allergy profile. Start diflucan for the yeast. Surgery today for debridement. Follow cultures Subjective Interval History:: Pt seen at bedside via [employer]. No fevers or chills. No n/v/d. Wound pain is stable. Objective Physical Examination : BP 116/48 Pulse 79 Temp 36.9 C (98.5 F) (Oral) Resp 16 Ht 157.5 cm (5' 2 ) Wt 124.2 kg (273 lb 12.8 oz) SpO2 94% BMI 50.08 kg/m Temperature Range: Temp: 36.9 C (98.5 F) Temp Av.7 C (98.1 F) Min: 36.5 C (97.7 F) Max: 36.9 C(98.5 F) *Pt seen via [employer] connect. Portions of the exam pulled from hospitalist documentation and via assessment from the RN at bedside* Constitutional: awake and alert. Cardiovascular: S1, S2 Respiratory: clear non labored. Gastrointestinal/Abdomen: abdominal wound pictured below Musculoskeletal/Extremities: No cyanosis, clubbing, edema, or effusions. Skin: warm, dry, no rashes or lesions noted Neurologic: Bulk and tone are normal. No atrophy is noted. Laboratory data: I have independently reviewed the following labs: Results from last 7 days Lab Units 02/24/2443002/23/2442602/22/24420 WBC X10E9/L 6.4 6.4 7.9 HEMOGLOBIN g/dL 8.8* 8.8* 9.2* HEMATOCRIT % 26.4* 26.5* 27.6* MCV fL 94 94 94 PLATELETS X10E9/L 224 222 253 NEUTROS ABS X10E9/L 3.7 3.5 4.7 LYMPHS ABS AUTO X10E9/L 1.9 2.0 2.1 MONOS ABS AUTO X10E9/L 0.6 0.6 0.7 EOS ABS AUTO X10E9/L 0.3 0.2 0.3 BASOS ABS AUTO X10E9/L 0.1 0.1 0.0 Results from last 7 days Lab Units 02/24/2443002/23/2442602/22/24420 SODIUM mmol/L 133* 135 138 POTASSIUM mmol/L 4.7 4.5 4.3 CHLORIDE mmol/L 102 104 108 CO2 mmol/L 21* 23 21* BUN mg/dL 45* 39* 38* CREATININE mg/dL 1.36* 1.48* 1.47* CALCIUM mg/dL 8.4* 8.4* 8.5 ALBUMIN g/dL 2.6* 2.5* 2.6* ALK PHOS U/L 38* 36* 37* ALT U/L 14 15 16 AST U/L 16 15 23 Results from last 7 days Lab Units 02/21/24 0438 02/20/24 1552 CRP mg/dL -- 10.2* FERRITIN ng/mL 568* -- Results from last 7 days Lab Units 02/21/24 0438 HEMOGLOBIN A1C % 9.6* Invalid input(s): BILIRUBINU , BILIRUBINNU Imaging Studies: Cultures: Microbiology Results Procedure Component Value Units Date/Time Blood culture #2 [[id number]] Collected: 02/20/241917 Specimen: Blood Updated: 02/23/242205 Culture NO GROWTH 3 DAYS Blood culture #1 [[id number]] Collected: 02/20/241909 Specimen: Blood Updated: 02/23/242204 Culture NO GROWTH 3 DAYS Wound culture superficial includes gram stain [[id number]] (Abnormal) Collected: 02/20/24 1710 Specimen: Wound Swab Updated: 02/24/24 1225 Specimen Notes SPECIMEN 2 Gram Stain Result >25 WHITE BLOOD CELLS/LPF 0 to 1 SQUAMOUS EPITHELIAL CELLS/LPF MODERATE GRAM POSITIVE COCCI FEW GRAM NEGATIVE RODS RARE YEAST Culture MANY ACHROMOBACTER SPECIES CULTURE IN PROGRESS Wound culture superficial includes gram stain [[id number]] Collected: 02/20/24 1507 Specimen: Wound Swab Updated: 02/22/24 1025 Specimen Notes SPECIMEN 1 Gram Stain Result 10 to 24 WHITE BLOOD CELLS/LPF 0 to 1 SQUAMOUS EPITHELIAL CELLS/LPF FEW GRAM POSITIVE COCCI RARE GRAM NEGATIVE RODS Culture MANY MIXED GRAM POSITIVE AND GRAM NEGATIVE ORGANISMS NO STAPHYLOCOCCUS AUREUS ISOLATED NO PSEUDOMONAS AERUGINOSA ISOLATED NO BETA HEMOLYTIC STREPTOCOCCI ISOLATED Medications: allopurinoL, 300 mg, oral, Daily cyclobenzaprine, 10 mg, oral, Nightly fluconazole, 200 mg, oral, Daily fluticasone furoate-vilanteroL, 1 puff, inhalation, Daily heparin (porcine), 5,000 Units, subcutaneous, Q8H JONATHAN insulin lispro, 3-18 Units, subcutaneous, With meals and nightly levothyroxine, 150 mcg, oral, Daily meropenem, 1,000 mg, intravenous, Q12H metoprolol tartrate, 75 mg, oral, BID montelukast, 10 mg, oral, Nightly pantoprazole, 40 mg, oral, QAM AC pregabalin, 75 mg, oral, TID sodium hypochlorite, 1 Application, topical, BID vancomycin, 1,500 mg, intravenous, Q24H Thank you for allowing us to participate in the care of this patient. Please call with questions. Erin Chaudhari DNP, CNP From 7AM-7PM: From 7AM-7PM: Please use indidebt for communication From 7PM-7AM: Please call for our answering service. Tele-Infectious DiseaseTelemedicine Consult Note Consent Statement: I discussed risks, benefits, and alternatives of a real-time synchronous audiovisual consultation with the patient (and any accompanying persons) including the risks that the patient's personal health details and medical records will be discussed over real-time, synchronous, interactive video/audio/telecommunication technology, the visit will not be recorded without the express consent of both the provider and the patient, and that there are some limitations compared to [id number] evaluations. We elected to proceed. SHAYLA Esposito 02/24/24 1435 * Plan of Care - SHAYLA Rai - 02/24/2024 1:15 PM EDT Wound care consulted. Patient is known to wound care clinic. Continue dakins dressings as ordered. Awaiting OR for debridement then will reevaluate and update wound plan of care as indicated. SHAYLA Rai 02/24/24 1412 * Plan of Care - Lily Gomez RN - 02/24/2024 9:00 AM EDT Problem: Pain Goal: Patient goal is pain score less than 4, able to rest, and participant in treatment plan as appropriate Description: INTERVENTIONS: 1. Encourage patient or legal outside sales representative insurance to report early pain and ask for pain medicine when needed 2. Assess pain using appropriate pain scale and include the scale used when documenting 3. Administer analgesics based on type and severity of pain and evaluate response within appropriate time frame 4. Implement non-pharmacological measures as appropriate and evaluate response 5. Consider cultural and social influences on pain and pain management 6. Notify LIP if interventions ineffective or patient reports new pain 7. Monitor vital signs including pulse ox, end-tidal CO2 based on pain intervention 8. Reassess pain per policy 9. Teach patient or legal outside sales representative insurance interventions for comforting Outcome: Progressing Note: Evaluation of progress towards goal: Pain assessed and treated accordingly. Problem: Safety Goal: Patient will be injury free during hospitalization Description: INTERVENTIONS: 1. Assess patient's risk for falls and implement fall prevention plan of care per policy 2. Provide and maintain a safe environment 3. Proper use of double Identifiers 4. Medication administration using the 5 rights 5. Hand hygiene 6. Specimens are labeled at the bedside 7. Instruct patient/ patient outside sales representative insurance about use of safety devices 8. Include patient/ patient outside sales representative insurance in decisions related to safety Outcome: Progressing Note: Evaluation of progress towards goal: PT is free of falls, hourly rounding is completed, area is kept clear. Problem: Infection Goal: Absence of infection during hospitalization Description: Interventions: 1. Assess and monitor for signs and symptoms of infection 2. Monitor lab/diagnostic results 3. Monitor all insertion sites i.e., indwelling lines, tubes and drains 4. Monitor endotracheal (as able) and nasal secretions for changes in amount and color 5. Administer medications as ordered 6. Instruct and encourage patient and family to use good hand hygiene technique 7. Identify and instruct patient/patient outside sales representative insurance in use of appropriate isolation precautionsfor identified infection/symptoms 8. Provide and discuss with patient/patient outside sales representative insurance on educational MDRO sheet 9. Encourage and monitor nutritional status daily and consult retort feeder ground bone if indicated 10. Implement neutropenic guidelines as needed 11. Review exposure to history of communicable disease and recent travel history on admission 12. Encourage annual influenza vaccine 13. Encourage pneumonia vaccine Outcome: Progressing Note: Evaluation of progress towards goal: Pt assessed and monitored for signs and symptoms of infection, lab and diagnostic results monitored as needed, administer medications as needed. Problem: Glucose Imbalance Goal: Clinical indication of glucose balance is achieved Description: Patient's goal is: INTERVENTIONS 1. Monitor blood glucose levels as ordered 2. Administer medications as ordered 3. Notify physician of ineffective treatment plan Outcome: Progressing Note: Evaluation of progress towards goal: Glucose to be monitored and treated accordingly * Query Response - Ghanshyam Mayberry MD - 02/24/2024 8:35 AM EDT Query Response Note CDI QUERY TEXT: Diabetic Associated Manifestations [id number] Disclaimer: By submitting this query, we are merely seeking further clarification of documentation to accurately reflect all conditions that you are monitoring, evaluating, treating or that extend the hospitalization or utilize additional resources of care. Please utilize your independent clinical judgment when addressing the question(s) below. Dear Dr. Mayberry, The patient is admitted with cellulitis of abdomen. PPH H&P includes, ??Patient stated approximately 3-4 weeks ago got bit twice by a spider, woundhas continued to worsen? Type 2 diabetes mellitus? Hemoglobin A1c 9.6?? A cause and effect relationship may not be assumed and must be documented by a provider. Please clarify the relationship, if any, between abdominal wall cellulitis and diabetes, such as: >> Abdominal wall cellulitis associated/due to with diabetes >> Abdominal wall cellulitis and diabetes are unrelated to each other >> Other, please specify Please respond on this query and in the progress notes. Thank you, VICKY Faustin, RN [facility] Health Information Management Email: [email or web address] If you have any questions or concerns, regarding this query, please call or send them to me via e-mail. The patient's Clinical Indicators include: As above. CDI RESPONSE TEXT: Abdominal wall cellulitis associated/due to with diabetes Query created by: Florina Lewis on 02/24/2024 8:10 AM Electronically signed by: Ghanshyam Mayberry MD 02/24/2024 8:33 AM * Plan of Care - Yandy Crooks RN - 02/24/2024 12:35 AM EDT Problem: Pain Goal: Patient goal is pain score less than 4, able to rest, and participant in treatment plan as appropriate Description: INTERVENTIONS: 1. Encourage patient or legal outside sales representative insurance to report early pain and ask for pain medicine when needed 2. Assess pain using appropriate pain scale and include the scale used when documenting 3. Administer analgesics based on type and severity of pain and evaluate response within appropriate time frame 4. Implement non-pharmacological measures as appropriate and evaluate response 5. Consider cultural and social influences on pain and pain management 6. Notify LIP if interventions ineffective or patient reports new pain 7. Monitor vital signs including pulse ox, end-tidal CO2 based on pain intervention 8. Reassess pain per policy 9. Teach patient or legal outside sales representative insurance interventions for comforting Outcome: Progressing Note: Evaluation of progress towards goal: pain controlled with tylenol and scheduled lyrica * Plan of Care - Theresa Melendez RN - 02/23/2024 4:07 PM EDT Problem: Pain Goal: Patient goal is pain score less than 4, able to rest, and participant in treatment plan as appropriate Description: INTERVENTIONS: 1. Encourage patient or legal outside sales representative insurance to report early pain and ask for pain medicine when needed 2. Assess pain using appropriate pain scale and include the scale used when documenting 3. Administer analgesics based on type and severity of pain and evaluate response within appropriate time frame 4. Implement non-pharmacological measures as appropriate and evaluate response 5. Consider cultural and social influences on pain and pain management 6. Notify LIP if interventions ineffective or patient reports new pain 7. Monitor vital signs including pulse ox, end-tidal CO2 based on pain intervention 8. Reassess pain per policy 9. Teach patient or legal outside sales representative insurance interventions for comforting Outcome: Progressing Note: Evaluation of progress towards goal: Ongoing Problem: Safety Goal: Patient will be injury free during hospitalization Description: INTERVENTIONS: 1. Assess patient's risk for falls and implement fall prevention plan of care per policy 2. Provide and maintain a safe environment 3. Proper use of double Identifiers 4. Medication administration using the 5 rights 5. Hand hygiene 6. Specimens are labeled at the bedside 7. Instruct patient/ patient outside sales representative insurance about use of safety devices 8. Include patient/ patient outside sales representative insurance in decisions related to safety Outcome: Progressing Note: Evaluation of progress towards goal: Ongoing Problem: Infection Goal: Absence of infection during hospitalization Description: Interventions: 1. Assess and monitor for signs and symptoms of infection 2. Monitor lab/diagnostic results 3. Monitor all insertion sites i.e., indwelling lines, tubes and drains 4. Monitor endotracheal (as able) and nasal secretions for changes in amount and color 5. Administer medications as ordered 6. Instruct and encourage patient and family to use good hand hygiene technique 7. Identify and instruct patient/patient outside sales representative insurance in use of appropriate isolation precautionsfor identified infection/symptoms 8. Provide and discuss with patient/patient outside sales representative insurance on educational MDRO sheet 9. Encourage and monitor nutritional status daily and consult retort feeder ground bone if indicated 10. Implement neutropenic guidelines as needed 11. Review exposure to history of communicable disease and recent travel history on admission 12. Encourage annual influenza vaccine 13. Encourage pneumonia vaccine Outcome: Progressing Note: Evaluation of progress towards goal: Ongoing Problem: Knowledge Deficit Goal: Patient/patient outside sales representative insurance demonstrates understanding of disease process, treatment plan,medications, and discharge instructions Description: INTERVENTIONS 1. Complete learning assessment and assess knowledge base 2. Provide teaching at level of understanding 3. Provide teaching via preferred learning method(s) Outcome: Progressing Note: Evaluation of progress towards goal: Ongoing Problem: Discharge Planning Goal: Discharge to post-acute care, other facility, or home with appropriate resources Description: Patient's goal is: INTERVENTIONS 1. Conduct assessment to determine patient/family and health care team treatment goals, and need for post-acute services based on payer coverage, community resources, and patient preferences, and barriers to discharge 2. Coordinate with Social work, Care Navigation, and Utilization Review to arrange appropriate level of services according to patient's needs based on patient preference and payer coverage in collaboration with the physician and health care team 3. Address psychosocial, clinical, and financial barriers to discharge as identified in assessment in conjunction with the patient/family and health care team 4. Consult appropriate ancillary services (i.e.. PT/OT/ST, etc) as needed 5. Communicate with and update the patient/family, physician, and health care team regarding progress on the discharge plan 6. Identify discharge learning needs (meds, wound care, etc). 7. Arrange for needed discharge transportation as appropriate Outcome: Progressing Note: Evaluation of progress towards goal: Ongoing Problem: Inadequate Airway Clearance Goal: Patient will maintain patent airway Description: INTERVENTIONS 1. Assess and monitor breath sounds, cough and sputum (if present) 2. Monitor respiratory rate and oxygen saturation 3. Collaborate with respiratory therapy to administer medication, oxygen, and suitable airway clearance techniques as ordered 4. Position patient for maximum ventilatory efficiency; elevate head of bed at least 30 degrees if appropriate 5. Provide adequate fluid intake to liquify secretions if appropriate 6. Suction secretions as indicated to maintain patent airway 7. Instruct patient to turn, cough, and deep breathe; encourage incentive spirometer if indicated Outcome: Progressing Note: Evaluation of progress towards goal: Ongoing Problem: Inadequate Breathing Pattern Goal: Patient will achieve/maintain normal respiratory rate/effort Description: Patient's goal is: INTERVENTIONS 1. Assess and monitor respiratory rate, effort, breathing pattern, and oxygenation 2. Monitor patient for restlessness, anxiety, air hunger 3. Assess physical activity tolerance 4. Assess tobacco history; ask, advise, and refer as appropriate 5. Collaborate with interdisciplinary team and initiate plans/interventions as needed Outcome: Progressing Note: Evaluation of progress towards goal: Ongoing Goal: Patient will maintain effective ventilation Description: Patient's goal is: INTERVENTIONS 1. Assess and monitor vital signs, respiratory status (to include respiratory rate, depth, effort, and breath sounds), oxygen saturation, oral mucosa, tongue, pain, and labs (ABGs). 2. Collaborate with interdisciplinary team and initiate plans and interventions as needed 3. Oxygen therapy as indicated 4. Position patient for maximum ventilatory efficiency 5. Instruct patient to turn, cough, and deep breathe; encourage incentive spirometer if indicated 6. Plan activities to conserve energy 7. Encourage ambulation/activity per patient's tolerance 8. Collaborate with patient/RT to administer medications/treatments 9. Monitor lab/diagnostic results Outcome: Progressing Note: Evaluation of progress towards goal: Ongoing Problem: Anxiety Goal: Anxiety is at manageable level Description: Patient's goal is: INTERVENTIONS 1. Assess and monitor patient's anxiety level 2. Monitor for signs and symptoms of anxiety both physical and emotional (heart palpitations, chestpain, shortness of breath, headaches, nausea, feeling jumpy, restlessness, irritable, apprehensive) 3. Reorient/orient patient to unit/surroundings 4. Explain treatment plan 5. Explain tests/procedures prior to initiation 6. Encourage participation in care 7. Encourage verbalization of concerns/fears 8. Assess coping mechanisms 9. Assist in developing anxiety-reducing skills 10. Administer complimentary therapies 11. Manage patient's environment 12. Limit or eliminate stimulants such as caffeine and nicotine 13. Collaborate with ancillary departments 14. Include patient/patient outside sales representative insurance in decisions related to anxiety Outcome: Progressing Note: Evaluation of progress towards goal: Ongoing Problem: Activity Intolerance/Impaired Mobility Goal: Mobility/activity is maintained at optimum level for patient Description: Patient's goal is: INTERVENTIONS 1. Assess and monitor patient barriers to mobility and need for assistive/adaptive devices 2. Assess patient's emotional response to limitations 3. Collaborate with interdisciplinary teams and initiate plans and interventions as ordered 4. Encourage independent activity per tolerance 5. Maintain proper body alignment 6. Perform active/passive ROM as tolerated/ordered 7. Coordinate activities to conserve energy 8. Reposition patient 9. Ensure adequate rest/sleep time Outcome: Progressing Note: Evaluation of progress towards goal: Ongoing Problem: Inadequate Coping Goal: Demonstrates and verbalizes ability to cope effectively Description: Patient's goal is: INTERVENTIONS 1. Patient is able to verbalize feelings related to emotional state 2. Encourage verbalization of feelings, perceptions, fears, stressors, loss of loved ones 3. Encourage verbalization of problems out of their control 4. Encourage participation in care and self management 5. Inform patient of all treatment/care prior to providing care 6. Collaborate with pastoral/spiritual care, transition social worker, mental health counselor as needed. 7. Instruct patient on diversional activities such as physical activity, distraction, and deep breathing exercises to assist with coping 8. Involve patient's outside sales representative insurance in care Outcome: Progressing Note: Evaluation of progress towards goal: Ongoing Problem: Glucose Imbalance Goal: Clinical indication of glucose balance is achieved Description: Patient's goal is: INTERVENTIONS 1. Monitor blood glucose levels as ordered 2. Administer medications as ordered 3. Notify physician of ineffective treatment plan Outcome: Progressing Note: Evaluation of progress towards goal: Ongoing Goal: Patient's discharge needs are met Description: Patient's goal is: INTERVENTIONS 1. Assess patient for self-management skills 2. Encourage participation in diabetes management 3. Identify potential discharge barriers on admission and throughout hospital stay 4. Involve patient/S.O. in discharge planning process 5. Communicate referral to heating plant superintendent as appropriate 6. Communicate referral to retort feeder ground bone as appropriate 7. Collaborate with case management/transition social worker for discharge needs Outcome: Progressing Note: Evaluation of progress towards goal: Ongoing Problem: Moderate - High Risk Fall Score Description: Smith Fall Score of =/> 25 or indicated by [facility] Assessment Goal: Patient should be free from fall Description: Interventions: 1. [place] to environment 2. Hourly rounds addressing the 4 P's (Pain, Positioning, Possessions, Potty) 3. Clear area of hazards (spills, clutter, electrical cords, unnecessary equipment) 4. Place equipment (bed & TV controls, call light, phone, urinal) within reach 5. Encourage patient to wear glasses and hearing aides as appropriate 6. Maintain bed in lowest position 7. Lock wheels on bed/wheelchair 8. Provide adequate lighting, including night light 9. Assess need for additional bedding, food/fluids, pain med's prior to sleep/routinely 10. Provide gripper slippers or personal non-skid footwear 11. Teach patient and patient outside sales representative insurance to maintain environment for safety and engage in all aspects of fall prevention program 12. Remind patient to call for help before getting out of bed 13. Initiate bed/chair/exit alarms supportive devices as appropriate, (chair wedge, no-skid floor mat, raised edge mattress, hip protectors) 14. Locate patient bed assignment for optimal visualization 15. Evaluate and identify Safe Patient Handling Equipment needs 16. Provide supervision when out of bed or chair 17. Utilize gait belt as needed to assist with ambulation 18. Place adaptive equipment (cane, walker) within reach 19. Request patient outside sales representative insurance bring adaptive equipment/mobility aids from home or obtain and provide as needed 20. Consult pharmacy regarding effects of med's affecting mobility, cognition, and alternatives 21. Obtain physician order for PT if risk factors associated with mobility are present 22. Obtain physician order for OT as appropriate 23. Utilize diversional activities 24. Educate patient and patient outside sales representative insurance how to maintain a safe environment during visitationtimes (notify nurse prior to leaving bedside) 25. Consider appropriateness of medical or non-medical cost consultant 26. Set up voiding schedule as appropriate (every 2 hours) Outcome: Progressing Note: Evaluation of progress towards goal: Ongoing Problem: Potential for Compromised Skin Integrity Goal: Skin integrity is maintained or improved Description: Patient's goal is: INTERVENTIONS 1. Perform initial skin assessment on admission and as needed 2. Turn patient every 2 hours and PRN 3. Relieve pressure to bony prominences 4. Avoid shearing 5. Keep skin clean and dry 6. Alternate a full bath with partial baths for elderly 7. Apply lotion/moisturizer on skin 8. Monitor patient's hygiene practices 9. Float heels 10. Collaborate with interdisciplinary team and initiate plans and interventions as needed Outcome: Progressing Note: Evaluation of progress towards goal: Ongoing Goal: Patient's nutritional intake is adequate Description: Patient's goal is: INTERVENTIONS 1. Assess and monitor food intake and supplements, patient food preferences, nausea, vomiting, labs, oral cavity (gums, teeth, tongue, mucosa), proper denture fit, and cultural beliefs 2. Monitor for signs of hypoglycemia and hyperglycemia 3. Collaborate with interdisciplinary team and initiate plan and interventions as ordered 4. Monitor patient's weight 5. Assist patient with meals/food selection 6. Assist patient with eating 7. Allow adequate time for meals 8. Provide pleasant environment during mealtime 9. Increase social contact during mealtimes 10. Plan activities to conserve energy 11. Encourage/perform oral hygiene as appropriate 12. Encourage patient to take dietary supplement as ordered 13. Collaborate with clinical retort feeder ground bone 14. Include patient/ patient's outside sales representative insurance in decisions related to nutrition Outcome: Progressing Note: Evaluation of progress towards goal: Ongoing Problem: Urinary Incontinence Goal: Perineal skin integrity is maintained or improved Description: INTERVENTIONS 1. Assess genitourinary system, perineal skin, labs (urinalysis), and history of incontinence to include past management, aggravating, and alleviating factors 2. Keep skin clean and dry 3. Apply skin protectant 4. Develop skin care regimen 5. Provide privacy when changing patients incontinence device to maintain their dignity 6. Consider placing an indwelling catheter 7. Collaborate with interdisciplinary team and initiate plans and interventions as needed Outcome: Progressing Note: Evaluation of progress towards goal: Ongoing * Plan of Care - RAYNE Miller - 02/23/2024 1:12 PM EDT Problem: Increased Nutrient Needs (NI-5.1) Description: Increased need for a specific nutrient compared to established reference standards or recommendations based on physiological needs. Goal: Consume > 50% of supplements and meals Outcome: Progressing Flowsheets (Taken 02/23/2024 1311) Nutrition Communication: 02/22 juvenBID 100 %po Source of Nutrition Referral (Initial Visit Only): Nutrition screen Note: Evaluation of progress towards goal: monitor poc * Wound Care - Fiorella Martinez RN - 02/23/2024 12:18 PM EDT Images from the original note were not included. WOUND CARE NOTE Date of Admission: 02/20/2024 3:27 PM Reason for Consult: Abdominal wounds History of Present Illness: Authsudheer Foy [facility] who presents with Abdominal wounds due to a spider bite . Wound has been present since since January 03. Patient has been being seen in the wound clinic. She was sent down to the ER after being seen on Friday02/20/24 due to possible cellulitis of the a bdomen.Pain is worsened with touching. Pain is improved with Medication and rest. Current wound pain 08/09. Vital Signs: BP 125/51 Pulse 77 Temp 36.7 C (98 F) (Oral) Resp 16 Ht 157.5 cm (5' 2 ) Wt 124.2 kg (273 lb 12.8 oz) SpO2 92% BMI 50.08 kg/m Wound related workup: General surgery consulted for debridement. Patient is to be NPO at midnight and Dr. Amaay will debride tomorrow. Wound Assessment: Wound 01/30/24 1 Abdomen Right Lateral;Proximal (Active) Wound Image 02/23/24 1200 Site Assessment Red;Yellow;Eschar Unstable 02/23/24 1200 Molly-wound Assessment Blanchable erythema;Red 02/23/24 1200 Wound Length (cm) 3.5 cm 02/23/24 1200 Wound Width (cm) 9.5 cm 02/23/24 1200 Wound Surface Area (cm^2) 33.25 cm^2 02/23/24 1200 Wound Depth (cm) 1 cm 02/23/24 1200 Wound Volume (cm^3) 33.25 cm^3 02/23/24 1200 Change in Wound Size % -179.41 02/23/24 1200 Closure Open to air 02/23/24 0718 Drainage Description Sanguineous 02/23/24 1200 Drainage Amount Small 02/23/24 1200 Treatments Cleansed with;Dakins solution 02/23/24 1200 Debridement Performed? N 02/23/24 1200 Dressing Type Gauze Rolled/Kerlix;Foam 02/23/24 1200 Dressing Changed New 02/23/24 1200 Dressing Status Clean;Dry;Intact 02/23/24 1200 State of Healing Non-healing 02/23/24 1200 Wound Bed Granulation (%) < 25% 02/23/24 1200 Wound Bed Slough (%) 75% to 100% 02/23/24 1200 Wound Bed Eschar (%) < 25% 02/23/24 1200 Margins Defined edges 02/23/24717 Non-staged Wound Description Not applicable 02/23/24717 Pressure Injury Stage U 02/23/24 0718 Wound 01/30/24 2 Abdomen Right Lateral;Distal (Active) Wound Image 02/23/24 1200 Site Assessment Eschar Unstable;Yellow;Red 02/23/24 1200 Molly-wound Assessment Blanchable erythema;Red 02/23/24 1200 Wound Length (cm) 3 cm 02/23/24 1200 Wound Width (cm) 4 cm 02/23/24 1200 Wound Surface Area (cm^2) 12 cm^2 02/23/24 1200 Wound Depth (cm) 1 cm 02/23/24 1200 Wound Volume (cm^3) 12 cm^3 02/23/24 1200 Change in Wound Size % 52.38 02/23/24 1200 Closure None 02/23/24717 Drainage Description Sanguineous 02/23/24 1200 Drainage Amount Small 02/23/24 1200 Treatments Site care 02/23/24717 Debridement Performed? N 02/23/24 1200 Dressing Type Foam;Gauze Rolled/Kerlix 02/23/24 1200 Dressing Changed New 02/23/24717 Dressing Status Clean;Dry;Intact 02/23/24717 State of Healing Non-healing 02/23/24717 Wound Bed Granulation (%) < 25% 02/23/24 1200 Wound Bed Slough (%) 75% to 100% 02/23/24 1200 Wound Bed Eschar (%) < 25% 02/23/24 1200 Margins Unattached edges 02/23/24717 Non-staged Wound Description Not applicable 02/23/24717 Pressure Injury Stage U 02/23/24717 Plan of care was discussed with Wound care services MEDICAL PSYCHOTHERAPIST Wound Plan Dressing: Apply moistened gauze with 0.125% Dakins then secure with dry dressing. Follow up: Will continue to follow while inpatient. Patient has a follow up appointment in the wound clinic Thank you for allowing us to participate in the care of this patient. Please feel free to call us with any questions or concerns. Fiorella Martinez RN [facility] Preferred contact via Ext. [phone], [employer] Chat or [facility] [place] TRUCKING SUPERVISOR: Quinton Weber APRN-MEDICAL PSYCHOTHERAPIST, CWON * Discharge Planning Note - Alona Okeefe - 02/23/2024 12:02 PM EDT DISCHARGE PLANNING NOTE Authumn D [facility] Hand off received from BOZENA Cervantes. Infectious disease consulted on patient. Discharge plan will be pending Infectious Disease home going recommendations. Discharge Plan: Possible Option #1 - Home on oral antibiotics. Possible Option #2 - Home with IV PICC line and IV antibiotics administered at home. Will need referral to [facility]. This option must be used if IV antibiotics are ordered > daily. Possible Option #3 - Home with IV PICC line and IV antibiotics administered at [facility]. Discharge IV antibiotics should be ordered as a therapy plan and first dose scheduled with [facility]. This option can be used only if antibiotics are ordered as a daily infusion. Follow up appointments as below: Appointment with Ann Fournier (PCP) in 12 days from today. Tasked to the transition center. Follow up with Wound Clinic in 2 weeks from today. Tasked to the transition center. - Alona Okeefe 02/23/24 12:02 PM * Discharge Planning Note - BOZENA Greene - 02/23/2024 9:51 AM EDT Images from the original note were not included. DISCHARGE PLANNING NOTE 02/23/24 0947 Discharge Disposition Discharge Disposition Home with Self Care (pending ID recommendation for AB need at [place]) County Information [facility] Patient Information Primary Caregiver Self Support System Immediate family;Friends (mom, friend Marilynn) Stressors Type of stressor (does not endorse) Income Information Income Information Unemployed Referral To Community Resources Denies needs Discharge Planning Living Arrangements Parent (mom lives with pt) Support Systems Parent;Friends Assistance Needed uses cane; has walker if needed; nebulizer, shower chair Type of Residence Private residence Private Residence 1 story Residence Accessibility Steps into home Number of Steps 0 Home Care Services No Community Agencies Currently Utilized [employer] [place] Patient expects to be discharged to: home Does the patient need discharge transport arranged? No Services Requested: Services Requested Discharge Disposition: Home with self care Initial DC Assessment Completed: Yes DC Planning Complete Discharge Milestones: Yes Patient Goals: Patient/Caregiver Goals Patient/Caregiver Goals: Home No Needs (pending ID recommendations for AB) Home No Needs: Caregiver/Family Goals home (pt-stated) Evaluation of progress towards goal: under assessment Chart reviewed. Pleasant pt agreeable to conversation; introduced self & role of SW, assessment/goals as above. Pt said goal is to return home. Patient said she is familiar with having a PICC line as she has [facility] for a prior wound. Pt does not endorse alcohol/substance use. Pt does not endorse food insecurity or financial stressors. Pt is able to afford home medications. Pt has functioning water, heat, cooling & electric inthe home. Pt does not endorse any type of domestic abuse. Pt does not endorse anxiety, depression or other mental health concerns; negative [place] screen. Pt provides own transportation. Pt is independent in/out of the home, performs own household tasks,meal preparation & grocery shops. Pt relayed her mom & good friend Marilynn provide natural supports. Patient's preferred pharmacy is [facility]. PCP verified as Ann Fournier . Educated pt on available community resources including meals on wheels & on benefits of Home Health Care; pt does not endorse any current DC needs. Informed pt that Care Navigation will be following & should HHC be recommended CN would meet & discuss; pt states understanding. Opportunity provided to ask questions, pt does not endorse anyat this time. Plan to prevent readmission is for pt to follow up with PCP, pt prefers to make own appointment, follow DC instructions including medication compliance and to reach out to health care team as needed. Care Navigation following for safe care transition. * Telehealth Consult - Delonte Colindres MD - 02/23/2024 8:13 AM EDTAssociated Order(s): Consult Infectious Disease Telehealth Images from the original note were not included. Consult Infectious Disease Telehealth Consult performed by: Delonte Colindres MD Consult ordered by: SHAYLA Stephens Reason for consult: non-healing wound Tele-Infectious Disease Telemedicine Consult Note Consent Statement: I discussed risks, benefits, and alternatives of a real-time synchronous audiovisual consultation with the patient (and any accompanying persons) including the risks that the patient's personal health details and medical records will be discussed over real-time, synchronous, interactive video/audio/telecommunication technology, the visit will not be recorded without the express consent of both the provider and the patient, andthat there are some limitations compared to [id number] evaluations. We elected to proceed. Division of Infectious Diseases - Initial Consult Note [facility] - TeleMedicine During Business Hours: Please use indidebt for communication. After Hours: Please call for our answering service. Patient name: Mary Jane Foy [facility] Patient Today's Date and Time: 02/23/2024, 8:13 AM Admission Date: 02/20/2024 Primary Care Physician: SHAYLA KRAFT Impression and Recommendations:: Open abdominal wall wound with complication, initial encounter. The patient presents with two chronic ulcers on the right lower abdomen, [facility] on 01/30[facility]2024. She has been following with Wound Care now for several weeks. There was concern for increasing erythema and drainage with a yellowish exudate from the wounds. Wound care consult in potential consideration for surgical debridement is planned for later this afternoon. She has been on doxycycline and fluconazole as an outpatient. 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 We do not have susceptibilities for this. She endorses a spider bite; not entirely clear if this is the etiology in question, but it does also not necessarily influence our treatment to any great extent. Agree with vancomycin. We will add back fluconazole for longer course. If there is a surgical debridement that is planned, then surgical cultures would potentially be helpful although I am less confident that superficial cultures will be helpful in guiding therapy. We will follow. Thank you for the consultation. Subjective Reason for consultation / Chief complaint:: Abdominal wall wound of the skin with fat layer exposed, spider bite wound. History of Present Illness We appreciate the opportunity to consult on Mary Jane Suarez, a 53 y.o.-year-old female who was initially admitted on 02/20/2024. The patient is a female presenting with a chief complaint of a spider bite on her abdomen, which occurred approximately three to four weeks ago. Initially, she attempted to treat the bites at home by washing them with a wound wash and applying Neosporin. However, thepain intensified over the weekend, prompting her to visit the [facility] emergency room. At the time of her ER visit, the patient reported two bites on her abdomen that were becoming increasingly painful. She described some discharge from the wounds but denied significant swelling or redness. Although she had experienced low- grade fevers and chills at home, she currently denies any fevers, sweats, nausea, or vomiting. The patient has a history of chronic kidney disease and was previously on doxycycline for her condition, as well as levaquin (750 mg) following the bite. Due to multiple allergies to antibiotics, hertreatment options may be limited. Upon evaluation in the emergency department, her workup revealed slight acute kidney injury but no leukocytosis. Her CRP level was elevated at 10.2, and blood and wound cultures were obtained. She was started on vancomycin for potential infection. General surgery has been consulted for possible debridement, although they are unavailable until February 23, 2024. Past Medical History: Past Medical History: Diagnosis Date Anemia Asthma COPD (chronic obstructive pulmonary disease) [place] Diabetes type 2, controlled ([facility]) GI problem Herniation of right side of L4-L5 intervertebral disc High cholesterol Hypertension Hypothyroidism Nerve damage in feet and legs Osteoarthritis Ovarian cancer ([facility]) Past Surgical History: Past Surgical History: Procedure Laterality Date APPENDECTOMY CHOLECYSTECTOMY DISCECTOMY KNEE ARTHROSCOPY Right NASAL SEPTUM SURGERY REPLACEMENT TOTAL KNEE Right SHOULDER HARDWARE REMOVAL TONSILLECTOMY Medications: allopurinoL, 300 mg, oral, Daily cyclobenzaprine, 10 mg, oral, Nightly fluticasone furoate-vilanteroL, 1 puff, inhalation, Daily heparin (porcine), 5,000 Units, subcutaneous, Q8H JONATHAN insulin regular human U-500 concentrated , 150 Units of U-500, subcutaneous, BID with meals levothyroxine, 150 mcg, oral, Daily metoprolol tartrate, 75 mg, oral, BID montelukast, 10 mg, oral, Nightly pantoprazole, 40 mg, oral, QAM AC pregabalin, 75 mg, oral, TID sodium hypochlorite, 1 Application, topical, BID vancomycin, 1,500 mg, intravenous, Q36H Social History: Social History Socioeconomic History Marital status: Single Tobacco Use Smoking status: Never Smokeless tobacco: Never Vaping Use Vaping status: Never Used Substance and Sexual Activity Alcohol use: Not Currently Drug use: Not Currently Sexual activity: Defer Social Determinants of Health Food Insecurity: No Food Insecurity (02/20/2024) Hunger Screening Food Insecurity - Worry: Never True Food Insecurity - Inability: Never True Transportation Needs: No Transportation Needs (02/20/2024) PRAPARE - Transportation Lack of Transportation (Medical): No Lack of Transportation (Non-Medical): No Interpersonal Safety: Not At Risk (02/20/2024) Humiliation, Afraid, Rape, and Kick questionnaire Fear of Current or Ex-Partner: No Emotionally Abused: No Physically Abused: No Sexually Abused: No Housing Instability: Low Risk (02/20/2024) Housing Instability Housing Instability: No Family History: Family History Problem Relation Age of Onset Arthritis Mother Asthma Mother Hypertension Mother Hyperlipidemia Mother Stroke Mother Arthritis Father Diabetes Father Hypertension Father Alzheimer's disease Father Immunization History: There is no immunization history on file for this patient. Allergies: Allergies Allergen Reactions Bactrim [Sulfamethoxazole-Trimethoprim] Anaphylaxis Penicillins Anaphylaxis Sulfamethoxazole Anaphylaxis and Swelling Sulfanilamide Anaphylaxis Trimethoprim Anaphylaxis Aspirin Vomiting Avelox [Moxifloxacin] Hives Azithromycin Hives Cefzil [Cefprozil] Hives Cephalexin Hives Ciprofloxacin Hives Percocet [Oxycodone-Acetaminophen] Vomiting Soy Adhesive Rash Review of Systems: Constitutional: Denies fever, chills, or significant weight loss; reports fatigue. Skin: Reports pain and discharge from spider bites; denies swelling or redness. Gastrointestinal: Denies nausea or vomiting. Renal: Reports chronic kidney disease; denies changes in urinary habits. Neurological: Denies headaches or dizziness. Objective Physical Examination: BP 125/51 Pulse 77 Temp 36.7 C (98 F) (Oral) Resp 16 Ht 157.5 cm (5' 2 ) Wt 124.2 kg (273lb 12.8 oz) SpO2 92% BMI 50.08 kg/m Temperature Range: Temp: 36.7 C (98 F) Temp Av.9 C (98.5 F) Min: 36.4 C (97.5 F) Max: 37.6 C (99.7 F) Visit was conducted via the [employer]. My impressions are as follows: General: Alert and oriented; appears mildly distressed due to pain. Vital Signs: Stable; afebrile. Skin: Two spider bite sites on the abdomen; slight tenderness; drainage observed; no signs of acuteinfection. Abdomen: Soft, non-tender; no distension or palpable masses. Extremities: No edema or cyanosis; normal pulses. Neurological: No focal deficits; normal strength and sensation. Labs: I have reviewed the following labs personally: Results from last 7 days Lab Units 02/23/2442602/22/2442002/21/24 0438 WBC X10E9/L 6.4 7.9 7.0 HEMOGLOBIN g/dL 8.8* 9.2* 9.4* HEMATOCRIT % 26.5* 27.6* 28.4* MCV fL 94 94 95 PLATELETS X10E9/L 222 253 247 NEUTROS ABS X10E9/L 3.5 4.7 4.0 LYMPHS ABS AUTO X10E9/L 2.0 2.1 2.0 MONOS ABS AUTO X10E9/L 0.6 0.7 0.8 EOS ABS AUTO X10E9/L 0.2 0.3 0.2 BASOS ABS AUTO X10E9/L 0.1 0.0 0.0 Results from last 7 days Lab Units 02/23/24 04202/22/24 1554 02/22/24 1214 02/22/24 04202/21/24 1145 02/21/24 0438 SODIUM mmol/L 135 -- -- 138 -- 140 POTASSIUM mmol/L 4.5 -- -- 4.3 -- 4.2 CHLORIDE mmol/L 104 -- -- 108 -- 107 CO2 mmol/L 23 -- -- 21* -- 23 BUN mg/dL 39* -- -- 38* -- 45* CREATININE mg/dL 1.48* -- -- 1.47* -- 1.68* BEDSIDE GLUCOSE mg/dL -- 423* 280* -- < > -- GLUCOSE mg/dL 252* -- -- 105* -- 142* CALCIUM mg/dL 8.4* -- -- 8.5 -- 8.4* ALBUMIN g/dL 2.5* -- -- 2.6* -- 2.7* ALK PHOS U/L 36* -- -- 37* -- 35* ALT U/L 15 -- -- 16 -- 17 AST U/L 15 -- -- 23 -- 23 < > = values in this interval not displayed. Results from last 7 days Lab Units 02/21/24 0438 02/20/24 1552 CRP mg/dL -- 10.2* HEMOGLOBIN A1C % 9.6* -- Cultures: Microbiology Results Procedure Component Value Units Date/Time Blood culture #2 [[id number]] Collected: 02/20/241917 Specimen: Blood Updated: 02/22/242205 Culture NO GROWTH 2 DAYS Blood culture #1 [[id number]] Collected: 02/20/241909 Specimen: Blood Updated: 02/22/242205 Culture NO GROWTH 2 DAYS Wound culture superficial includes gram stain [[id number]] Collected: 02/20/24 1710 Specimen: Wound Swab Updated: 02/22/24 1251 Specimen Notes SPECIMEN 2 Gram Stain Result >25 WHITE BLOOD CELLS/LPF 0 to 1 SQUAMOUS EPITHELIAL CELLS/LPF MODERATE GRAM POSITIVE COCCI FEW GRAM NEGATIVE RODS RARE YEAST Culture CULTURE IN PROGRESS Wound culture superficial includes gram stain [[id number]] Collected: 02/20/24 1507 Specimen: Wound Swab Updated: 02/22/24 1025 Specimen Notes SPECIMEN 1 Gram Stain Result 10 to 24 WHITE BLOOD CELLS/LPF 0 to 1 SQUAMOUS EPITHELIAL CELLS/LPF FEW GRAM POSITIVE COCCI RARE GRAM NEGATIVE RODS Culture MANY MIXED GRAM POSITIVE AND GRAM NEGATIVE ORGANISMS NO STAPHYLOCOCCUS AUREUS ISOLATED NO PSEUDOMONAS AERUGINOSA ISOLATED NO BETA HEMOLYTIC STREPTOCOCCI ISOLATED Telemedicine Statement: Tele-Infectious Disease Telemedicine Consult Note Consent Statement: I discussed risks, benefits, and alternatives of a real-time synchronous audiovisual consultation with the patient (and any accompanying persons) including the risks that the patient's personal health details and medical records will be discussed over real-time, synchronous, interactive video/audio/telecommunication technology, the visit will not be recorded without the express consent of both the provider and the patient, andthat there are some limitations compared to [id number] evaluations. We elected to proceed. Thank you for allowing us to participate in the care of this patient. Please call with questions. Delonte Colindres MD, MPH, FACP, FIDSA From 7AM-7PM: Please use indidebt for communication. From 7PM-7AM: Please call for our answering service. * Plan of Care - Meliza Ramires RN - 02/22/2024 10:51 PM EDT Problem: Safety Goal: Patient will be injury free during hospitalization Description: INTERVENTIONS: 1. Assess patient's risk for falls and implement fall prevention plan of care per policy 2. Provide and maintain a safe environment 3. Proper use of double Identifiers 4. Medication administration using the 5 rights 5. Hand hygiene 6. Specimens are labeled at the bedside 7. Instruct patient/ patient outside sales representative insurance about use of safety devices 8. Include patient/ patient outside sales representative insurance in decisions related to safety Outcome: Progressing Note: Evaluation of progress towards goal: Safety maintained Problem: Infection Goal: Absence of infection during hospitalization Description: Interventions: 1. Assess and monitor for signs and symptoms of infection 2. Monitor lab/diagnostic results 3. Monitor all insertion sites i.e., indwelling lines, tubes and drains 4. Monitor endotracheal (as able) and nasal secretions for changes in amount and color 5. Administer medications as ordered 6. Instruct and encourage patient and family to use good hand hygiene technique 7. Identify and instruct patient/patient outside sales representative insurance in use of appropriate isolation precautionsfor identified infection/symptoms 8. Provide and discuss with patient/patient outside sales representative insurance on educational MDRO sheet 9. Encourage and monitor nutritional status daily and consult retort feeder ground bone if indicated 10. Implement neutropenic guidelines as needed 11. Review exposure to history of communicable disease and recent travel history on admission 12. Encourage annual influenza vaccine 13. Encourage pneumonia vaccine Outcome: Progressing Note: Evaluation of progress towards goal: Ongoing IV abt tx Problem: Knowledge Deficit Goal: Patient/patient outside sales representative insurance demonstrates understanding of disease process, treatment plan,medications, and discharge instructions Description: INTERVENTIONS 1. Complete learning assessment and assess knowledge base 2. Provide teaching at level of understanding 3. Provide teaching via preferred learning method(s) Outcome: Progressing Note: Evaluation of progress towards goal: In agreement with plan of care * Plan of Care - Mikki Street RN - 02/22/2024 8:50 AM EDT Problem: Pain Goal: Patient goal is pain score less than 4, able to rest, and participant in treatment plan as appropriate Description: INTERVENTIONS: 1. Encourage patient or legal outside sales representative insurance to report early pain and ask for pain medicine when needed 2. Assess pain using appropriate pain scale and include the scale used when documenting 3. Administer analgesics based on type and severity of pain and evaluate response within appropriate time frame 4. Implement non-pharmacological measures as appropriate and evaluate response 5. Consider cultural and social influences on pain and pain management 6. Notify LIP if interventions ineffective or patient reports new pain 7. Monitor vital signs including pulse ox, end-tidal CO2 based on pain intervention 8. Reassess pain per policy 9. Teach patient or legal outside sales representative insurance interventions for comforting Outcome: Progressing Note: Evaluation of progress towards goal: monitor and treat pain as ordered Problem: Safety Goal: Patient will be injury free during hospitalization Description: INTERVENTIONS: 1. Assess patient's risk for falls and implement fall prevention plan of care per policy 2. Provide and maintain a safe environment 3. Proper use of double Identifiers 4. Medication administration using the 5 rights 5. Hand hygiene 6. Specimens are labeled at the bedside 7. Instruct patient/ patient outside sales representative insurance about use of safety devices 8. Include patient/ patient outside sales representative insurance in decisions related to safety Outcome: Progressing Note: Evaluation of progress towards goal: remains free from fall/ injury Problem: Infection Goal: Absence of infection during hospitalization Description: Interventions: 1. Assess and monitor for signs and symptoms of infection 2. Monitor lab/diagnostic results 3. Monitor all insertion sites i.e., indwelling lines, tubes and drains 4. Monitor endotracheal (as able) and nasal secretions for changes in amount and color 5. Administer medications as ordered 6. Instruct and encourage patient and family to use good hand hygiene technique 7. Identify and instruct patient/patient outside sales representative insurance in use of appropriate isolation precautionsfor identified infection/symptoms 8. Provide and discuss with patient/patient outside sales representative insurance on educational MDRO sheet 9. Encourage and monitor nutritional status daily and consult retort feeder ground bone if indicated 10. Implement neutropenic guidelines as needed 11. Review exposure to history of communicable disease and recent travel history on admission 12. Encourage annual influenza vaccine 13. Encourage pneumonia vaccine Outcome: Progressing Note: Evaluation of progress towards goal: antibiotics administered as ordered * Plan of Care - Meliza Ramires RN - 02/22/2024 12:19 AM EDT Problem: Safety Goal: Patient will be injury free during hospitalization Description: INTERVENTIONS: 1. Assess patient's risk for falls and implement fall prevention plan of care per policy 2. Provide and maintain a safe environment 3. Proper use of double Identifiers 4. Medication administration using the 5 rights 5. Hand hygiene 6. Specimens are labeled at the bedside 7. Instruct patient/ patient outside sales representative insurance about use of safety devices 8. Include patient/ patient outside sales representative insurance in decisions related to safety Outcome: Progressing Note: Evaluation of progress towards goal: Safety maintained Problem: Knowledge Deficit Goal: Patient/patient outside sales representative insurance demonstrates understanding of disease process, treatment plan,medications, and discharge instructions Description: INTERVENTIONS 1. Complete learning assessment and assess knowledge base 2. Provide teaching at level of understanding 3. Provide teaching via preferred learning method(s) Outcome: Progressing Note: Evaluation of progress towards goal: In agreement with plan of care Problem: Anxiety Goal: Anxiety is at manageable level Description: Patient's goal is: INTERVENTIONS 1. Assess and monitor patient's anxiety level 2. Monitor for signs and symptoms of anxiety both physical and emotional (heart palpitations, chestpain, shortness of breath, headaches, nausea, feeling jumpy, restlessness, irritable, apprehensive) 3. Reorient/orient patient to unit/surroundings 4. Explain treatment plan 5. Explain tests/procedures prior to initiation 6. Encourage participation in care 7. Encourage verbalization of concerns/fears 8. Assess coping mechanisms 9. Assist in developing anxiety-reducing skills 10. Administer complimentary therapies 11. Manage patient's environment 12. Limit or eliminate stimulants such as caffeine and nicotine 13. Collaborate with ancillary departments 14. Include patient/patient outside sales representative insurance in decisions related to anxiety Outcome: Progressing Note: Evaluation of progress towards goal: Anxiety improved * Plan of Care - Mikki Street RN - 02/21/2024 8:11 AM EDT Problem: Pain Goal: Patient goal is pain score less than 4, able to rest, and participant in treatment plan as appropriate Description: INTERVENTIONS: 1. Encourage patient or legal outside sales representative insurance to report early pain and ask for pain medicine when needed 2. Assess pain using appropriate pain scale and include the scale used when documenting 3. Administer analgesics based on type and severity of pain and evaluate response within appropriate time frame 4. Implement non-pharmacological measures as appropriate and evaluate response 5. Consider cultural and social influences on pain and pain management 6. Notify LIP if interventions ineffective or patient reports new pain 7. Monitor vital signs including pulse ox, end-tidal CO2 based on pain intervention 8. Reassess pain per policy 9. Teach patient or legal outside sales representative insurance interventions for comforting Outcome: Progressing Note: Evaluation of progress towards goal: monitor and treat pain as ordered Problem: Safety Goal: Patient will be injury free during hospitalization Description: INTERVENTIONS: 1. Assess patient's risk for falls and implement fall prevention plan of care per policy 2. Provide and maintain a safe environment 3. Proper use of double Identifiers 4. Medication administration using the 5 rights 5. Hand hygiene 6. Specimens are labeled at the bedside 7. Instruct patient/ patient outside sales representative insurance about use of safety devices 8. Include patient/ patient outside sales representative insurance in decisions related to safety Outcome: Progressing Note: Evaluation of progress towards goal: remains free from fall/ injury * Plan of Care - Meliza Ramires RN - 02/20/2024 9:59 PM EDT Problem: Safety Goal: Patient will be injury free during hospitalization Description: INTERVENTIONS: 1. Assess patient's risk for falls and implement fall prevention plan of care per policy 2. Provide and maintain a safe environment 3. Proper use of double Identifiers 4. Medication administration using the 5 rights 5. Hand hygiene 6. Specimens are labeled at the bedside 7. Instruct patient/ patient outside sales representative insurance about use of safety devices 8. Include patient/ patient outside sales representative insurance in decisions related to safety Note: Evaluation of progress towards goal: Safety maintained Problem: Knowledge Deficit Goal: Patient/patient outside sales representative insurance demonstrates understanding of disease process, treatment plan,medications, and discharge instructions Description: INTERVENTIONS 1. Complete learning assessment and assess knowledge base 2. Provide teaching at level of understanding 3. Provide teaching via preferred learning method(s) Note: Evaluation of progress towards goal: In agreement with plan of care Problem: Glucose Imbalance Goal: Clinical indication of glucose balance is achieved Description: Patient's goal is: INTERVENTIONS 1. Monitor blood glucose levels as ordered 2. Administer medications as ordered 3. Notify physician of ineffective treatment plan Note: Evaluation of progress towards goal: Glucose balance on going [facility] [id number] Plan of care note * Plan of Care - Chema Soliz RN - 02/27/2024 9:00 AM EDT Problem: Pain Goal: Patient goal is pain score less than 4, able to rest, and participant in treatment plan as appropriate Description: INTERVENTIONS: 1. Encourage patient or legal outside sales representative insurance to report early pain and ask for pain medicine when needed 2. Assess pain using appropriate pain scale and include the scale used when documenting 3. Administer analgesics based on type and severity of pain and evaluate response within appropriate time frame 4. Implement non-pharmacological measures as appropriate and evaluate response 5. Consider cultural and social influences on pain and pain management 6. Notify LIP if interventions ineffective or patient reports new pain 7. Monitor vital signs including pulse ox, end-tidal CO2 based on pain intervention 8. Reassess pain per policy 9. Teach patient or legal outside sales representative insurance interventions for comforting Outcome: Progressing Note: Evaluation of progress towards goal: Pt able to report pain according to 0/10 pain scale. Medicating patient for pain per orders. [facility] [place] [id number] Progress note* Discharge Planning Note - Alona Okeefe - 02/27/2024 8:29 AM EDT [facility] at 4pm today. Discharge plan on oral antibiotics as per infectious disease. Dressing Changes: Umm Weber CNP for wound care is recommending Dakins cleanse and dressing changesBID. Patient and her mother will be teachable caregivers and will complete dressing changes. [facility] to provide education. Plan of Care: [facility] [phone] fax CRF at Discharge Follow up appointments as below: Appointment with Ann Fournier (PCP) scheduled for March 03, 2024 @ 1100. Follow up with [facility] scheduled for February 27, 2024. Umm Weber and Fiorella Martinez with wound care were notified that appointment needs rescheduled. - Alona Okeefe 02/27/24 8:29 AM CRF sent to [facility] via [employer] - Alona Okeefe 02/27/24 12:02 PM [id number] Plan of care note* Plan of Care - Briseida Shaver RN - 02/27/2024 12:33 AM EDT Problem: Safety Goal: Patient will be injury free during hospitalization Description: INTERVENTIONS: 1. Assess patient's risk for falls and implement fall prevention plan of care per policy 2. Provide and maintain a safe environment 3. Proper use of double Identifiers 4. Medication administration using the 5 rights 5. Hand hygiene 6. Specimens are labeled at the bedside 7. Instruct patient/ patient outside sales representative insurance about use of safety devices 8. Include patient/ patient outside sales representative insurance in decisions related to safety Outcome: Progressing Note: Evaluation of progress towards goal: ongoing Problem: Knowledge Deficit Goal: Patient/patient outside sales representative insurance demonstrates understanding of disease process, treatment plan,medications, and discharge instructions Description: INTERVENTIONS 1. Complete learning assessment and assess knowledge base 2. Provide teaching at level of understanding 3. Provide teaching via preferred learning method(s) Outcome: Progressing Note: Evaluation of progress towards goal: ongoing Problem: Activity Intolerance/Impaired Mobility Goal: Mobility/activity is maintained at optimum level for patient Description: Patient's goal is: INTERVENTIONS 1. Assess and monitor patient barriers to mobility and need for assistive/adaptive devices 2. Assess patient's emotional response to limitations 3. Collaborate with interdisciplinary teams and initiate plans and interventions as ordered 4. Encourage independent activity per tolerance 5. Maintain proper body alignment 6. Perform active/passive ROM as tolerated/ordered 7. Coordinate activities to conserve energy 8. Reposition patient 9. Ensure adequate rest/sleep time Outcome: Progressing Note: Evaluation of progress towards goal: ongoing [facility]09-26-2024 History of Present illness Narrative* Ghanshyam Mayberry MD - 02/26/2024 12:40 PM EDT Images from the original note were not included. [facility] INTERNAL MEDICINE [facility] [address] [id number] Hospital Medicine Progress Note Patient: Mary Jane Foy [facility] Date of : 1970 Room: PCP: SHAYLA KRAFT Admission date: 02/20/2024 3:27 PM Encounter date: 02/26/24 Hospital Day: 7 SUBJECTIVE Chief complaints: Chief Complaint Patient presents with Wound Check Interval History: Status: stable. No new complaints. Review of Systems Constitutional: Negative for chills and fever. HENT: Negative for ear pain and sore throat. Eyes: Negative for pain and visual disturbance. Respiratory: Negative for cough and shortness of breath. Cardiovascular: Negative for chest pain and palpitations. Gastrointestinal: Negative for abdominal pain and vomiting. Genitourinary: Negative for dysuria and hematuria. Musculoskeletal: Positive for arthralgias. Negative for back pain. Skin: Positive for wound. Negative for color change and rash. Neurological: Positive for weakness. Negative for seizures and syncope. All other systems reviewed and are negative. OBJECTIVE BP 120/46 Pulse 77 Temp 36.7 C (98 F) (Oral) Resp 16 Ht 157.5 cm (5' 2 ) Wt 126.8 kg (279lb 9.6 oz) SpO2 94% BMI 51.14 kg/m Temp: [36.4 C (97.5 F)-36.9 C (98.4 F)] 36.7 C (98 F) Pulse: [76-94] 77 Resp: [16] 16 BP: (93-149)/(34-59) 120/46 SpO2: [90 %-96 %] 94 % O2 Device: None (Room air) O2 Flow Rate (L/min): [0 L/min] 0 L/min Intake/Output Summary (Last 24 hours) at 02/26/2024 1240 Last data filed at 02/26/2024 0747 Gross per 24 hour Intake 1287.19 ml Output 1400 ml Net -112.81 ml Physical Exam Constitutional: General: She is not in acute distress. Appearance: She is well-developed. She is obese. She is not ill-appearing. HENT: Head: Normocephalic and atraumatic. Nose: Nose normal. Mouth/Throat: Mouth: Mucous membranes are moist. Pharynx: Oropharynx is clear. Eyes: Conjunctiva/sclera: Conjunctivae normal. Pupils: Pupils are equal, round, and reactive to light. Cardiovascular: Rate and Rhythm: Normal rate and regular rhythm. Heart sounds: Normal heart sounds. No murmur heard. Pulmonary: Effort: Pulmonary effort is normal. No respiratory distress. Breath sounds: Normal breath sounds. No wheezing. Abdominal: General: Bowel sounds are normal. Palpations: Abdomen is soft. Musculoskeletal: General: Normal range of motion. Cervical back: Neck supple. Lymphadenopathy: Cervical: No cervical adenopathy. Skin: General: Skin is warm and dry. Findings: Erythema present. No rash. Comments: Abd wound , see images in media Neurological: Mental Status: She is alert and oriented to person, place, and time. Cranial Nerves: No cranial nerve deficit. Medications Scheduled: allopurinoL, 300 mg, oral, Daily cyclobenzaprine, 10 mg, oral, Nightly fluconazole, 200 mg, oral, Daily fluticasone furoate-vilanteroL, 1 puff, inhalation, Daily heparin (porcine), 5,000 Units, subcutaneous, Q8H JONATHAN insulin lispro, 3-18 Units, subcutaneous, With meals and nightly levothyroxine, 150 mcg, oral, Daily meropenem, 1,000 mg, intravenous, Q12H metoprolol tartrate, 75 mg, oral, BID montelukast, 10 mg, oral, Nightly pantoprazole, 40 mg, oral, QAM AC pregabalin, 75 mg, oral, TID sodium hypochlorite, 1 Application, topical, BID vancomycin, 1,500 mg, intravenous, Q24H Infusions: dextrose 5 % in water, 100 mL/hr sodium chloride 0.9 %, 20 mL/hr, Last Rate: 20 mL/hr (02/26/24 0747) As Needed: acetaminophen dextrose dextrose 5 % in water dextrose 50 % in water (D50W) glucagon (human recombinant) HYDROcodone-acetaminophen ipratropium-albuteroL magnesium sulfate magnesium sulfate morphine injection ondansetron potassium chloride OR potassium chloride sennosides-docusate sodium sodium chloride sodium chloride sodium chloride 0.9 % Allergies: Bactrim [sulfamethoxazole-trimethoprim], Penicillins, Sulfamethoxazole, Sulfanilamide, Trimethoprim, Aspirin, Avelox [moxifloxacin], Azithromycin, Cefzil [cefprozil], Cephalexin, Ciprofloxacin, Percocet [oxycodone-acetaminophen], Soy, and Adhesive Code Status: Full Code Labs Recent Results (from the past 24 hour(s)) Bedside Glucose *Place/Obtain serum glucose if >500(>600 MRH) per glucometer. Collection Time: 02/25/24 4:02 PM Result Value Ref Range Bedside glucose 407 (HH) 65 - 99 mg/dL Bedside Glucose *Place/Obtain serum glucose if >500(>600 MRH) per glucometer. Collection Time: 02/25/24 9:17 PM Result Value Ref Range Bedside glucose 405 (HH) 65 - 99 mg/dL Comprehensive metabolic panel Collection Time: 02/26/24 5:02 AM Result Value Ref Range Sodium 133 (L) 134 - 146 mmol/L Potassium, Bld 4.8 3.5 - 5.0 mmol/L Chloride 102 98 - 109 mmol/L CO2 21 (L) 22 - 32 mmol/L Anion gap 10 5 - 15 mmol/L BUN 46 (H) 5 - 23 mg/dL Creatinine 1.48 (H) 0.40 - 1.00 mg/dL Glucose 344 (H) 65 - 99 mg/dL Calcium 8.5 8.5 - 10.5 mg/dL Total Protein 6.4 6.0 - 8.0 g/dL Albumin 2.5 (L) 3.2 - 5.3 g/dL Alkaline Phosphatase 38 (L) 39 - 130 U/L AST 15 0 - 41 U/L ALT 13 0 - 31 U/L Total bilirubin 0.5 0.3 - 1.2 mg/dL eGFR (CKD-EPI)non-race dependent 42 (L) >59 ml/min/1.73sq.m Magnesium Collection Time: 02/26/24 5:02 AM Result Value Ref Range Magnesium 1.9 1.8 - 2.6 mg/dL CBC auto differential Collection Time: 02/26/24 5:02 AM Result Value Ref Range White Blood Cells 6.5 4.0 - 11.0 X10E9/L RBC count 2.72 (L) 3.80 - 5.20 X10E12/L Hemoglobin 8.4 (L) 11.7 - 15.5 g/dL Hematocrit 25.4 (L) 35 - 47 % MCV 93 80 - 100 fL MCH 30.9 27 - 34 pg MCHC 33.1 32 - 36 g/dL RDW 13.7 11.5 - 15.0 % Platelets 232 150 - 450 X10E9/L MPV 10.1 7 - 12 fL % neutrophils 59.3 % % lymphocytes 28.2 % % monocytes 8.5 % % eosinophils 3.4 % % Basophils 0.6 % Neutrophils Absolute (A) 3.8 1.5 - 6.6 X10E9/L Lymphocytes Absolute 1.8 1.0 - 3.5 X10E9/L Monocytes Absolute 0.6 0 - 0.9 X10E9/L Eosinophils Absolute 0.2 0.0 - 0.4 X10E9/L Basophils Absolute 0.0 0.0 - 0.2 X10E9/L Bedside Glucose *Place/Obtain serum glucose if >500(>600 MRH) per glucometer. Collection Time: 02/26/24 12:00 PM Result Value Ref Range Bedside glucose 275 (H) 65 - 99 mg/dL Radiology No results found. HOSPITAL PROBLEM LIST Principal Problem: Wound infection Active Problems: Acquired hypothyroidism Diabetic neuropathy ([facility]) Hyperlipidemia Obesity, morbid ([facility]) Supraventricular tachycardia ([facility]) Type 2 diabetes mellitus without complication ([facility]) Stage 2 chronic kidney disease ASSESSMENT & PLAN Cellulitis of abdomen -Infectious Disease, Wound Care and General surgery following. - debridement done on 02/24/2024. - continue on vancomycin, add meropenem per ID -Wound culture shows achromobacter, blood culture no growth x5 days -Mult allergies -wound care following SVT/HTN -Follows with cardio -On lopressor and plavix -Holding lisinopril for acute kidney injury -BP/HR has been stable Acute kidney injury on CKD stage 2 -Stated her baseline GFR is approximately 45 -stable -continue to monitor daily. Normocytic anemia -hemoglobin stable Diabetes -Hemoglobin A1c 9.6 - hold U 500 insulin. - Patient to bring in pump from home. -continues hyperglycemic. -Will monitor blood glucose a.c. and HS cover with high-dose sliding scale coverage until able to get home pump Hypothyroidism -tsh wnl -cont levothyroxine Asthma -on room air -cont home inhalers VTE - Hold heparin until after debridement tomorrow DC planning - Hopeful discharge home tomorrow After 3rd dose of IV antibiotic. Appreciate Infectious Disease input - Manolo Padilla APRN-JOSE 02/26/24 12:40 PM [facility] Internal Medicine 7AM-7PM (all facilities): Bgiftyt or page through Telebit. 7PM-7AM ([facility], [facility] Psychiatry and Inpatient Rehab): EpicChat or page, [phone]. 7PM-7AM ([place], [place], [place], [place] and [facility] Rehab): EpicChat or page through Telebit. This note is dictated with the use of M*Modal. Please note that this dictation was completed with computer voice recognition software. Quite often unanticipated grammatical, syntax, homophones, and other interpretive errors are inadvertently transcribed by the computer software. Please disregard these errors. Please excuse any errors that have escaped final proofreading. Manolo Padilla APRN-JOSE 02/26/24 1242 Physician Attestation I, Ghanshyam Mayberry MD, personally performed a face to face diagnostic evaluation on this patient. I have reviewed the note authored by the advance practice provider including history, review of systems,physical examination,medical decision making and agree with the assessment and plan as written. I have seen and evaluated the patient, I have repeated the ramos portions of the physical exam and concur with the IRINEO findings. I have reviewed all laboratory findings and imaging reports/films. I agree with the plan as noted. * Chema Soliz RN - 02/25/2024 4:10 PM EDT Provider not informed of 407 blood sugar d/t orders in place to call if blood sugar greater than 450. Sliding scale insulin orders followed. * Ghanshyam Mayberry MD - 02/25/2024 4:05 PM EDT Images from the original note were not included. [facility] INTERNAL MEDICINE [facility] [id number] Hospital Medicine Progress Note Patient: Mary Jane Foy [facility]ly [facility] Date of : 1970 Room: PCP: SHAYLA KRAFT Admission date: 02/20/2024 3:27 PM Encounter date: 02/25/24 Hospital Day: 6 SUBJECTIVE Chief complaints: Chief Complaint Patient presents with Wound Check Interval History: Status: stable. Continues hyperglycemic but improving with increase dose sliding scale. Awaiting Infectious Diseasefinal recommendations. Review of Systems Constitutional: Negative for chills and fever. HENT: Negative for ear pain and sore throat. Eyes: Negative for pain and visual disturbance. Respiratory: Negative for cough and shortness of breath. Cardiovascular: Negative for chest pain and palpitations. Gastrointestinal: Negative for abdominal pain and vomiting. Genitourinary: Negative for dysuria and hematuria. Musculoskeletal: Positive for arthralgias. Negative for back pain. Skin: Positive for wound. Negative for color change and rash. Neurological: Positive for weakness. Negative for seizures and syncope. All other systems reviewed and are negative. OBJECTIVE BP 146/59 Pulse 80 Temp 36.4 C (97.5 F) (Oral) Resp 16 Ht 157.5 cm (5' 2 ) Wt 123.9 kg (273 lb 3.2 oz) SpO2 94% BMI 49.97 kg/m Temp: [36.4 C (97.5 F)-37.2 C (99 F)] 36.4 C (97.5 F) Pulse: [67-81] 80 Resp: [16-20] 16 BP: (113-146)/(42-66) 146/59 SpO2: [89 %-97 %] 94 % O2 Device: None (Room air) O2 Flow Rate (L/min): [0 L/min] 0 L/min Intake/Output Summary (Last 24 hours) at 02/25/2024 1605 Last data filed at 02/25/2024 0918 Gross per 24 hour Intake 761.64 ml Output 800 ml Net -38.36 ml Physical Exam Constitutional: General: She is not in acute distress. Appearance: She is well-developed. She is obese. She is not ill-appearing. HENT: Head: Normocephalic and atraumatic. Nose: Nose normal. Mouth/Throat: Mouth: Mucous membranes are moist. Pharynx: Oropharynx is clear. Eyes: Conjunctiva/sclera: Conjunctivae normal. Pupils: Pupils are equal, round, and reactive to light. Cardiovascular: Rate and Rhythm: Normal rate and regular rhythm. Heart sounds: Normal heart sounds. No murmur heard. Pulmonary: Effort: Pulmonary effort is normal. No respiratory distress. Breath sounds: Normal breath sounds. No wheezing. Abdominal: General: Bowel sounds are normal. Palpations: Abdomen is soft. Musculoskeletal: General: Normal range of motion. Cervical back: Neck supple. Lymphadenopathy: Cervical: No cervical adenopathy. Skin: General: Skin is warm and dry. Findings: Erythema present. No rash. Comments: Abd wound , see images in media Neurological: Mental Status: She is alert and oriented to person, place, and time. Cranial Nerves: No cranial nerve deficit. Medications Scheduled: allopurinoL, 300 mg, oral, Daily cyclobenzaprine, 10 mg, oral, Nightly fluconazole, 200 mg, oral, Daily fluticasone furoate-vilanteroL, 1 puff, inhalation, Daily heparin (porcine), 5,000 Units, subcutaneous, Q8H JONATHAN insulin lispro, 3-18 Units, subcutaneous, With meals and nightly levothyroxine, 150 mcg, oral, Daily meropenem, 1,000 mg, intravenous, Q12H metoprolol tartrate, 75 mg, oral, BID montelukast, 10 mg, oral, Nightly pantoprazole, 40 mg, oral, QAM AC pregabalin, 75 mg, oral, TID sodium hypochlorite, 1 Application, topical, BID vancomycin, 1,500 mg, intravenous, Q24H Infusions: dextrose 5 % in water, 100 mL/hr sodium chloride 0.9 %, 20 mL/hr As Needed: acetaminophen dextrose dextrose 5 % in water dextrose 50 % in water (D50W) glucagon (human recombinant) HYDROcodone-acetaminophen magnesium sulfate magnesium sulfate morphine injection ondansetron potassium chloride OR potassium chloride sennosides-docusate sodium sodium chloride sodium chloride sodium chloride 0.9 % Allergies: Bactrim [sulfamethoxazole-trimethoprim], Penicillins, Sulfamethoxazole, Sulfanilamide, Trimethoprim, Aspirin, Avelox [moxifloxacin], Azithromycin, Cefzil [cefprozil], Cephalexin, Ciprofloxacin, Percocet [oxycodone-acetaminophen], Soy, and Adhesive Code Status: Full Code Labs Recent Results (from the past 24 hour(s)) Bedside Glucose *Place/Obtain serum glucose if >500(>600 MRH) per glucometer. Collection Time: 02/24/24 5:05 PM Result Value Ref Range Bedside glucose 255 (H) 65 - 99 mg/dL Bedside Glucose *Place/Obtain serum glucose if >500(>600 MRH) per glucometer. Collection Time: 02/24/24 9:28 PM Result Value Ref Range Bedside glucose 317 (H) 65 - 99 mg/dL Comprehensive metabolic panel Collection Time: 02/25/24 4:30 AM Result Value Ref Range Sodium 137 134 - 146 mmol/L Potassium, Bld 4.5 3.5 - 5.0 mmol/L Chloride 107 98 - 109 mmol/L CO2 22 22 - 32 mmol/L Anion gap 8 5 - 15 mmol/L BUN 39 (H) 5 - 23 mg/dL Creatinine 1.25 (H) 0.40 - 1.00 mg/dL Glucose 257 (H) 65 - 99 mg/dL Calcium 8.4 (L) 8.5 - 10.5 mg/dL Total Protein 6.3 6.0 - 8.0 g/dL Albumin 2.6 (L) 3.2 - 5.3 g/dL Alkaline Phosphatase 39 39 - 130 U/L AST 18 0 - 41 U/L ALT 15 0 - 31 U/L Total bilirubin 0.4 0.3 - 1.2 mg/dL eGFR (CKD-EPI)non-race dependent 51 (L) >59 ml/min/1.73sq.m Magnesium Collection Time: 02/25/24 4:30 AM Result Value Ref Range Magnesium 1.8 1.8 - 2.6 mg/dL CBC auto differential Collection Time: 02/25/24 4:30 AM Result Value Ref Range White Blood Cells 6.6 4.0 - 11.0 X10E9/L RBC count 2.81 (L) 3.80 - 5.20 X10E12/L Hemoglobin 8.8 (L) 11.7 - 15.5 g/dL Hematocrit 26.3 (L) 35 - 47 % MCV 94 80 - 100 fL MCH 31.2 27 - 34 pg MCHC 33.3 32 - 36 g/dL RDW 13.5 11.5 - 15.0 % Platelets 240 150 - 450 X10E9/L MPV 10.4 7 - 12 fL % neutrophils 62.5 % % lymphocytes 25.2 % % monocytes 7.3 % % eosinophils 4.5 % % Basophils 0.5 % Neutrophils Absolute (A) 4.1 1.5 - 6.6 X10E9/L Lymphocytes Absolute 1.7 1.0 - 3.5 X10E9/L Monocytes Absolute 0.5 0 - 0.9 X10E9/L Eosinophils Absolute 0.3 0.0 - 0.4 X10E9/L Basophils Absolute 0.0 0.0 - 0.2 X10E9/L Bedside Glucose *Place/Obtain serum glucose if >500(>600 MRH) per glucometer. Collection Time: 02/25/24 11:56 AM Result Value Ref Range Bedside glucose 322 (H) 65 - 99 mg/dL Radiology No results found. HOSPITAL PROBLEM LIST Principal Problem: Wound infection Active Problems: Acquired hypothyroidism Diabetic neuropathy ([facility]) Hyperlipidemia Obesity, morbid ([facility]) Supraventricular tachycardia ([facility]) Type 2 diabetes mellitus without complication ([facility]) Stage 2 chronic kidney disease ASSESSMENT & PLAN Cellulitis of abdomen -Infectious Disease, Wound Care and General surgery following. - debridement done on 02/24/2024. - continue on vancomycin, add meropenem per ID -Wound culture shows achromobacter, blood culture no growth x4 days -Mult allergies -wound care following SVT/HTN -Follows with cardio -On lopressor and plavix -Holding lisinopril for acute kidney injury -BP/HR has been stable Acute kidney injury on CKD stage 2 -Stated her baseline GFR is approximately 45 -stable -continue to monitor daily. Normocytic anemia -hemoglobin stable Diabetes -Hemoglobin A1c 9.6 - hold U 500 insulin. - Patient to bring in pump from home. -continues hyperglycemic. -blood glucose better controlled in the 250s instead of 350s from yesterday. -Will monitor blood glucose a.c. and HS cover with high-dose sliding scale coverage until able to get home pump Hypothyroidism -tsh wnl -cont levothyroxine Asthma -on room air -cont home inhalers VTE - Hold heparin until after debridement tomorrow DC planning - Hopeful discharge home tomorrow. Appreciate Infectious Disease input - Manolo Padilla APRN-JOSE 02/25/24 4:05 PM [facility] Internal Medicine 7AM-7PM (all facilities): EpicChat or page through Telebit. 7PM-7AM ([facility], [facility] Psychiatry and Inpatient Rehab): EpicChat or page, [phone]. 7PM-7AM ([place], [place], [place], [place] and [facility] Rehab): EpicChat or page through Telebit. This note is dictated with the use of M*Modal. Please note that this dictation was completed with computer voice recognition software. Quite often unanticipated grammatical, syntax, homophones, and other interpretive errors are inadvertently transcribed by the computer software. Please disregard these errors. Please excuse any errors that have escaped final proofreading. Manolo Padilla APRN-JOSE 02/25/24 5112 Physician Attestation I, Ghanshyam Mayberry MD, personally performed a face to face diagnostic evaluation on this patient. I have reviewed the note authored by the advance practice provider including history, review of systems,physical examination,medical decision making and agree with the assessment and plan as written. I have seen and evaluated the patient, I have repeated the ramos portions of the physical exam and concur with the IRINEO findings. I have reviewed all laboratory findings and imaging reports/films. I agree with the plan as noted. * Ghanshyam Mayberry MD - 02/24/2024 2:03 PM EDT Images from the original note were not included. [facility] INTERNAL MEDICINE [facility] [address] [facility] [place] [id number] Hospital Medicine Progress Note Patient: Mary Jane Foy [facility] Date of : 1970 Room: PCP: ANN FOURNIER APRN-MEDICAL PSYCHOTHERAPIST Admission date: 02/20/2024 3:27 PM Encounter date: 02/24/24 Hospital Day: 5 SUBJECTIVE Chief complaints: Chief Complaint Patient presents with Wound Check Interval History: Status: stable. Hyperglycemic overnight. Increased sliding scale coverage. Review of Systems Constitutional: Negative for chills and fever. HENT: Negative for ear pain and sore throat. Eyes: Negative for pain and visual disturbance. Respiratory: Negative for cough and shortness of breath. Cardiovascular: Negative for chest pain and palpitations. Gastrointestinal: Negative for abdominal pain and vomiting. Genitourinary: Negative for dysuria and hematuria. Musculoskeletal: Positive for arthralgias. Negative for back pain. Skin: Positive for wound. Negative for color change and rash. Neurological: Positive for weakness. Negative for seizures and syncope. All other systems reviewed and are negative. OBJECTIVE BP 116/48 Pulse 79 Temp 36.9 C (98.5 F) (Oral) Resp 16 Ht 157.5 cm (5' 2 ) Wt 124.2 kg (273 lb 12.8 oz) SpO2 94% BMI 50.08 kg/m Temp: [36.5 C (97.7 F)-36.9 C (98.5 F)] 36.9 C (98.5 F) Pulse: [74-90] 79 Resp: [16-17] 16 BP: (116-128)/(40-58) 116/48 SpO2: [89 %-98 %] 94 % O2 Device: None (Room air) O2 Flow Rate (L/min): [0 L/min] 0 L/min Intake/Output Summary (Last 24 hours) at 02/24/2024 1404 Last data filed at 02/23/2024 1900 Gross per 24 hour Intake 1244.89 ml Output 1500 ml Net -255.11 ml Physical Exam Constitutional: General: She is not in acute distress. Appearance: She is well-developed. She is obese. She is not ill-appearing. HENT: Head: Normocephalic and atraumatic. Nose: Nose normal. Mouth/Throat: Mouth: Mucous membranes are moist. Pharynx: Oropharynx is clear. Eyes: Conjunctiva/sclera: Conjunctivae normal. Pupils: Pupils are equal, round, and reactive to light. Cardiovascular: Rate and Rhythm: Normal rate and regular rhythm. Heart sounds: Normal heart sounds. No murmur heard. Pulmonary: Effort: Pulmonary effort is normal. No respiratory distress. Breath sounds: Normal breath sounds. No wheezing. Abdominal: General: Bowel sounds are normal. Palpations: Abdomen is soft. Musculoskeletal: General: Normal range of motion. Cervical back: Neck supple. Lymphadenopathy: Cervical: No cervical adenopathy. Skin: General: Skin is warm and dry. Findings: Erythema present. No rash. Comments: Abd wound , see images in media Neurological: Mental Status: She is alert and oriented to person, place, and time. Cranial Nerves: No cranial nerve deficit. Medications Scheduled: allopurinoL, 300 mg, oral, Daily cyclobenzaprine, 10 mg, oral, Nightly fluticasone furoate-vilanteroL, 1 puff, inhalation, Daily heparin (porcine), 5,000 Units, subcutaneous, Q8H JONATHAN insulin lispro, 3-18 Units, subcutaneous, With meals and nightly levothyroxine, 150 mcg, oral, Daily metoprolol tartrate, 75 mg, oral, BID montelukast, 10 mg, oral, Nightly pantoprazole, 40 mg, oral, QAM AC pregabalin, 75 mg, oral, TID sodium hypochlorite, 1 Application, topical, BID vancomycin, 1,500 mg, intravenous, Q24H Infusions: dextrose 5 % in water, 100 mL/hr sodium chloride 0.9 %, 20 mL/hr As Needed: acetaminophen dextrose dextrose 5 % in water dextrose 50 % in water (D50W) glucagon (human recombinant) HYDROcodone-acetaminophen magnesium sulfate magnesium sulfate morphine injection ondansetron potassium chloride OR potassium chloride sennosides-docusate sodium sodium chloride sodium chloride sodium chloride 0.9 % Allergies: Bactrim [sulfamethoxazole-trimethoprim], Penicillins, Sulfamethoxazole, Sulfanilamide, Trimethoprim, Aspirin, Avelox [moxifloxacin], Azithromycin, Cefzil [cefprozil], Cephalexin, Ciprofloxacin, Percocet [oxycodone-acetaminophen], Soy, and Adhesive Code Status: Full Code Labs Recent Results (from the past 24 hour(s)) Bedside Glucose *Place/Obtain serum glucose if >500(>600 MRH) per glucometer. Collection Time: 02/23/24 4:13 PM Result Value Ref Range Bedside glucose 436 (HH) 65 - 99 mg/dL Vancomycin, trough Collection Time: 02/23/24 8:39 PM Result Value Ref Range Vancomycin trough 6.8 5.0 - 20.0 ug/mL Bedside Glucose *Place/Obtain serum glucose if >500(>600 MRH) per glucometer. Collection Time: 02/23/24 9:03 PM Result Value Ref Range Bedside glucose 378 (H) 65 - 99 mg/dL Comprehensive metabolic panel Collection Time: 02/24/24 4:31 AM Result Value Ref Range Sodium 133 (L) 134 - 146 mmol/L Potassium, Bld 4.7 3.5 - 5.0 mmol/L Chloride 102 98 - 109 mmol/L CO2 21 (L) 22 - 32 mmol/L Anion gap 10 5 - 15 mmol/L BUN 45 (H) 5 - 23 mg/dL Creatinine 1.36 (H) 0.40 - 1.00 mg/dL Glucose 357 (H) 65 - 99 mg/dL Calcium 8.4 (L) 8.5 - 10.5 mg/dL Total Protein 6.5 6.0 - 8.0 g/dL Albumin 2.6 (L) 3.2 - 5.3 g/dL Alkaline Phosphatase 38 (L) 39 - 130 U/L AST 16 0 - 41 U/L ALT 14 0 - 31 U/L Total bilirubin 0.5 0.3 - 1.2 mg/dL eGFR (CKD-EPI)non-race dependent 46 (L) >59 ml/min/1.73sq.m Magnesium Collection Time: 02/24/24 4:31 AM Result Value Ref Range Magnesium 1.9 1.8 - 2.6 mg/dL CBC auto differential Collection Time: 02/24/24 4:31 AM Result Value Ref Range White Blood Cells 6.4 4.0 - 11.0 X10E9/L RBC count 2.82 (L) 3.80 - 5.20 X10E12/L Hemoglobin 8.8 (L) 11.7 - 15.5 g/dL Hematocrit 26.4 (L) 35 - 47 % MCV 94 80 - 100 fL MCH 31.2 27 - 34 pg MCHC 33.3 32 - 36 g/dL RDW 13.5 11.5 - 15.0 % Platelets 224 150 - 450 X10E9/L MPV 10.4 7 - 12 fL % neutrophils 56.7 % % lymphocytes 29.2 % % monocytes 8.7 % % eosinophils 4.5 % % Basophils 0.9 % Neutrophils Absolute (A) 3.7 1.5 - 6.6 X10E9/L Lymphocytes Absolute 1.9 1.0 - 3.5 X10E9/L Monocytes Absolute 0.6 0 - 0.9 X10E9/L Eosinophils Absolute 0.3 0.0 - 0.4 X10E9/L Basophils Absolute 0.1 0.0 - 0.2 X10E9/L Bedside Glucose *Place/Obtain serum glucose if >500(>600 MRH) per glucometer. Collection Time: 02/24/24 7:38 AM Result Value Ref Range Bedside glucose 342 (H) 65 - 99 mg/dL Bedside Glucose *Place/Obtain serum glucose if >500(>600 MRH) per glucometer. Collection Time: 02/24/24 11:59 AM Result Value Ref Range Bedside glucose 294 (H) 65 - 99 mg/dL Radiology No results found. HOSPITAL PROBLEM LIST Principal Problem: Wound infection Active Problems: Acquired hypothyroidism Diabetic neuropathy ([facility]) Hyperlipidemia Obesity, morbid ([facility]) Supraventricular tachycardia ([facility]) Type 2 diabetes mellitus without complication ([facility]) Stage 2 chronic kidney disease ASSESSMENT & PLAN Cellulitis of abdomen -Infectious Disease, Wound Care and General surgery following. - debridement scheduled for today. - continue on vancomycin, -Wound culture, blood culture pending -Mult allergies -wound care following SVT/HTN -Follows with cardio -On lopressor and plavix -Holding lisinopril for acute kidney injury -BP/HR has been stable Acute kidney injury on CKD stage 2 -Stated her baseline GFR is approximately 45 -stable -continue to monitor daily. Normocytic anemia -hemoglobin stable Diabetes -Hemoglobin A1c 9.6 - hold U 500 insulin. - Patient to bring in pump from home. -continues hyperglycemic. -increase dose of sliding scale coverage to between 3 and 18 units. -Will monitor blood glucose a.c. and HS cover with high-dose sliding scale coverage until able to get home pump Hypothyroidism -tsh wnl -cont levothyroxine Asthma -on room air -cont home inhalers VTE - Hold heparin until after debridement tomorrow DC planning - Hopeful discharge home tomorrow. Appreciate Infectious Disease input - Manolo Padilla APRN-JOSE 02/24/24 2:04 PM [facility] Internal Medicine 7AM-7PM (all facilities): EpicChat or page through Telebit. 7PM-7AM ([facility], [facility] Psychiatry and Inpatient Rehab): EpicChat or page, [phone]. 7PM-7AM ([facility], [place], [place] and [facility] Rehab): EpicChat or page through Telebit. This note is dictated with the use of M*Modal. Please note that this dictation was completed with computer voice recognition software. Quite often unanticipated grammatical, syntax, homophones, and other interpretive errors are inadvertently transcribed by the computer software. Please disregard these errors. Please excuse any errors that have escaped final proofreading. Manolo Padilla APRN-JOSE 02/24/24 8783 Physician Attestation I, Ghanshyam Mayberry MD, personally performed a face to face diagnostic evaluation on this patient. I have reviewed the note authored by the advance practice provider including history, review of systems,physical examination,medical decision making and agree with the assessment and plan as written. I have seen and evaluated the patient, I have repeated the ramos portions of the physical exam and concur with the IRINEO findings. I have reviewed all laboratory findings and imaging reports/films. I agree with the plan as noted. * Kiah Rivera [facility] - 02/24/2024 8:17 AM EDT Kinetic Consultation Note - Vancomycin Reason for Consult: Pharmacy to dose IV vancomycin Today is day number 5 of IV Vancomycin therapy. Working Diagnosis: cellulitis from Patient Active Problem List Diagnosis Date Noted Wound infection 02/20/2024 Stage 2 chronic kidney disease 02/20/2024 Non-pressure chronic ulcer of skin of 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 ([facility]) 01/30/2024 Obesity, morbid ([facility]) 10/31/2022 Diabetic neuropathy ([facility]) 10/21/2022 Other chronic pain 10/21/2022 Supraventricular tachycardia ([facility]) 10/23/2020 Gastroparesis 02/10/2012 Lobular panniculitis 07/03/2010 Allergic rhinitis due to allergen 06/09/2009 Chronic sinusitis 06/09/2009 Acquired hypothyroidism 08/24/2007 Asthma without status asthmaticus 08/24/2007 Hyperlipidemia 08/24/2007 Type 2 diabetes mellitus without complication ([facility]) 08/24/2007 History of Present Illness: Mary Jane Suarez is a 53 y.o. female for whom pharmacy has been consulted for vancomycin dosing for cellulitis with abdominal wounds . Relevant clinical data and objective history reviewed: Allergies: Bactrim [sulfamethoxazole-trimethoprim], Penicillins, Sulfamethoxazole, Sulfanilamide, Trimethoprim, Aspirin, Avelox [moxifloxacin], Azithromycin, Cefzil [cefprozil], Cephalexin, Ciprofloxacin, Percocet [oxycodone-acetaminophen], Soy, and Adhesive Results from last 7 days Lab Units 02/24/24 0431 02/23/24 0427 02/22/24 0421 02/21/24 0438 02/20/24 1552 CREATININE mg/dL 1.36* 1.48* 1.47* 1.68* 1.86* BUN mg/dL 45* 39* 38* 45* 50* WBC X10E9/L 6.4 6.4 7.9 7.0 8.8 HEMOGLOBIN g/dL 8.8* 8.8* 9.2* 9.4* 11.9 HEMATOCRIT % 26.4* 26.5* 27.6* 28.4* 35.8 MCV fL 94 94 94 95 94 Estimated Creatinine Clearance: 37 mL/min (A) (by C-G formula based on SCr of 1.36 mg/dL (H)). I/O last 3 completed shifts: In: 1709.9 [P.O.:1185; IV Piggyback:524.9] Out: 2600 [Urine:2600] Temp Readings from Last 3 Encounters: 02/24/24 36.9 C (98.5 F) (Oral) 02/20/24 37 C (98.6 F) (Temporal) 02/13/24 37 C (98.6 F) (Temporal) Renal Parameters: REBEL on CKD stage 2 - improving Culture Data: Microbiology Results Procedure Component Value Units Date/Time Blood culture #2 [[id number]] Collected: 02/20/241917 Specimen: Blood Updated: 02/23/242205 Culture NO GROWTH 3 DAYS Blood culture #1 [[id number]] Collected: 02/20/241909 Specimen: Blood Updated: 02/23/242204 Culture NO GROWTH 3 DAYS Wound culture superficial includes gram stain [[id number]] Collected: 02/20/24 1710 Specimen: Wound Swab Updated: 02/22/24 1251 Specimen Notes SPECIMEN 2 Gram Stain Result >25 WHITE BLOOD CELLS/LPF 0 to 1 SQUAMOUS EPITHELIAL CELLS/LPF MODERATE GRAM POSITIVE COCCI FEW GRAM NEGATIVE RODS RARE YEAST Culture CULTURE IN PROGRESS Wound culture superficial includes gram stain [[id number]] Collected: 02/20/24 1507 Specimen: Wound Swab Updated: 02/22/24 1025 Specimen Notes SPECIMEN 1 Gram Stain Result 10 to 24 WHITE BLOOD CELLS/LPF 0 to 1 SQUAMOUS EPITHELIAL CELLS/LPF FEW GRAM POSITIVE COCCI RARE GRAM NEGATIVE RODS Culture MANY MIXED GRAM POSITIVE AND GRAM NEGATIVE ORGANISMS NO STAPHYLOCOCCUS AUREUS ISOLATED NO PSEUDOMONAS AERUGINOSA ISOLATED NO BETA HEMOLYTIC STREPTOCOCCI ISOLATED Concurrent Antibiotics: Anti-infectives (From admission, onward) Start Dose/Rate Route Frequency Ordered Stop 02/24/24 2100 vancomycin (VANCOCIN) 1,500 mg in sodium chloride 0.9 % 500 mL IVPB 1,500 mg 353 mL/hr over 90 Minutes intravenous Every 24 hours 02/24/24 0812 Recent Vancomycin Regimen: 1500mg every 36 hours for 2 day Recent Vancomycin Serum concentration (trough or random) = 6.8 mg/L obtained on 02/22 Results from last 7 days Lab Units 02/23/242038 VANCOMYCIN TROUGH ug/mL 6.8 Desired Vancomycin Trough Concentration Range: 10-15 ug/mL Recommendations: Begin vancomycin 1500 mg IVPB every 24 hours. Renal function improved with Scr at 1.36 (1.68 on admit). Trough below goal range. Increase dosing interval from 36 to 24 hours. Obtain a trough prior tofourth dose of new regimen 02/26 at 2030. Pharmacy Dosing Service to follow serum concentrations and adjust as needed. Please see electronic record for orders. Thank you for consulting. Kaih Rivera RPH * RAYNE Miller - 02/23/2024 1:03 PM EDT NUTRITION ADULT INITIAL EVALUATION NUTRITION ASSESSMENT Reason To Be Seen: received nutritional trigger for infected wound Hospital Occurrences: Admit Diagnosis: Patient Active Problem List Diagnosis Acquired hypothyroidism Allergic rhinitis due to allergen Asthma without status asthmaticus Chronic sinusitis Diabetic neuropathy ([facility]) Gastroparesis Hyperlipidemia Lobular panniculitis Obesity, morbid ([facility]) Other chronic pain Supraventricular tachycardia ([facility]) Type 2 diabetes mellitus without complication ([facility]) Non-pressure chronic ulcer of skin of 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 ([facility]) Wound infection Stage 2 chronic kidney disease Past Medical History: Past Medical History: Diagnosis Date Anemia Asthma COPD (chronic obstructive pulmonary disease) ([facility]) Diabetes type 2, controlled ([facility]) GI problem Herniation of right side of L4-L5 intervertebral disc High cholesterol Hypertension Hypothyroidism Nerve damage in feet and legs Osteoarthritis Ovarian cancer ([facility]) Past Surgical History: Past Surgical History: Procedure Laterality Date APPENDECTOMY CHOLECYSTECTOMY DISCECTOMY KNEE ARTHROSCOPY Right NASAL SEPTUM SURGERY REPLACEMENT TOTAL KNEE Right SHOULDER HARDWARE REMOVAL TONSILLECTOMY Diet History: Pt reports she has a good appetite consuming 100 % of meals Allergies: Allergies Allergen Reactions Bactrim [Sulfamethoxazole-Trimethoprim] Anaphylaxis Penicillins Anaphylaxis Sulfamethoxazole Anaphylaxis and Swelling Sulfanilamide Anaphylaxis Trimethoprim Anaphylaxis Aspirin Vomiting Avelox [Moxifloxacin] Hives Azithromycin Hives Cefzil [Cefprozil] Hives Cephalexin Hives Ciprofloxacin Hives Percocet [Oxycodone-Acetaminophen] Vomiting Soy Adhesive Rash Nutrition Focused Physical Findings-- No evidence of muscle wasting/malnutrition. As per nutrition flow sheet- Skin: Skin Color: [place] (02/23/24717) Skin Temp: Warm, Dry (02/23/24717) Skin Integrity: Other (Comment) (RLQ abd wound) (02/20/24 1557) Wound: Wound 01/30/24 1 Abdomen Right Lateral;Proximal-State of Healing: Non-healing (02/23/24 1200) Wound 01/30/24 2 Abdomen Right Lateral;Distal-State of Healing: Non-healing (02/23/24717) Wound 01/30/24 1 Abdomen Right Lateral;Proximal-Site Assessment: Red, Yellow, Eschar Unstable (02/23/24 1200) Wound 01/30/24 2 Abdomen Right Lateral;Distal-Site Assessment: Eschar Unstable, Yellow, Red (02/23/24 1200) Wound 01/30/24 1 Abdomen Right Lateral;Hwzkrwgo-Cob-ncgmtl Wound Description: Not applicable (02/23/24717) Wound 01/30/24 2 Abdomen Right Lateral;Pdkugd-Mfm-iloevp Wound Description: Not applicable (02/23/24717) Gastrointestinal: Edema: Labs: Results from last 3 days Lab Units 02/23/24 0427 02/22/24 04202/21/24 0438 SODIUM mmol/L 135 138 140 POTASSIUM mmol/L 4.5 4.3 4.2 CHLORIDE mmol/L 104 108 107 CO2 mmol/L 23 21* 23 BUN mg/dL 39* 38* 45* CREATININE mg/dL 1.48* 1.47* 1.68* CALCIUM mg/dL 8.4* 8.5 8.4* ALBUMIN g/dL 2.5* 2.6* 2.7* ALK PHOS U/L 36* 37* 35* ALT U/L 15 16 17 AST U/L 15 23 23 Results from last 7 days Lab Units 02/23/24 1120 02/23/24 0427 02/22/24 2217 02/22/24 1554 02/22/24 1214 02/22/24 0421 02/21/24 2044 BEDSIDE GLUCOSE mg/dL 346* -- 416* 423* 280* -- 216* GLUCOSE mg/dL -- 252* -- -- -- 105* -- Results from last 3 days Lab Units 02/23/2442602/22/24 04202/21/24 0438 MAGNESIUM mg/dL 2.1 2.1 2.3 No data from last 3 days. Results from last 3 days Lab Units 02/23/24 04202/22/24 04202/21/24 0438 WBC X10E9/L 6.4 7.9 7.0 HEMOGLOBIN g/dL 8.8* 9.2* 9.4* HEMATOCRIT % 26.5* 27.6* 28.4* PLATELETS X10E9/L 222 253 247 MCV fL 94 94 95 Lab Results Component Value Date [id number] 312 02/21/2024 Lab Results Component Value Date FOLATE >25.0 02/21/2024 Lab Results Component Value Date IRON <10 (L) 02/21/2024 TIBC 307 02/21/2024 FERRITIN 568 (H) 02/21/2024 Lab Results Component Value Date IRONSAT <3 (L) 02/21/2024 Lab Results Component Value Date HGBA1C 9.6 (H) 02/21/2024 No results found for: CHOL No results found for: HDL , LDL No results found for: LIPIDPROF No results found for: VIDHYDROX Medications/ Parenteral: Medications Prior to Admission Medication Sig Dispense Refill Last Dose acetaminophen-codeine (TYLENOL #3) 300-30 mg per tablet Take 1 tablet by mouth every 4 (four) hoursas needed for pain. Past Week albuterol (PROVENTIL HFA;VENTOLIN HFA) 90 mcg/actuation inhaler Inhale 2 puffs every 4 (four) hoursas needed for shortness of breath. Past Week allopurinoL (ZYLOPRIM) 300 mg tablet Take 1 tablet (300 mg total) by mouth in the morning. 02/20/2024 ascorbic acid, vitamin C, (ascorbic acid) 250 mg tablet,chewable Chew and swallow. 02/20/2024 biotin 10,000 mcg capsule Take by mouth. 02/20/2024 cinnamon bark (CINNAMON) 500 mg capsule Take 4 capsules (2,000 mg total) by mouth in the morning. 02/20/2024 clopidogreL (PLAVIX) 75 mg tablet Take 1 tablet (75 mg total) by mouth in the morning. 02/20/2024 cyclobenzaprine (FLEXERIL) 10 mg tablet Take 1 tablet (10 mg total) by mouth nightly. 02/19/2024 [] doxycycline (ADOXA) 100 MG tablet Take 1 tablet (100 mg total) by mouth in the morning and 1 tablet (100 mg total) before bedtime. Do all this for 14 days. 28 tablet 0 02/20/2024 dupilumab (DUPIXENT PEN) 300 mg/2 mL pen injector SUBQ injection pen Inject 2 mL (300 mg total) under the skin once. One injection subcutaneous every 14 days Past Week fenofibrate (LOFIBRA) 160 mg tablet 02/19/2024 ferrous sulfate (IRON) 325 (65 FE) mg tablet Take 1 tablet (325 mg total) by mouth daily with breakfast. 02/20/2024 fexofenadine (ORAL) 180 mg tablet Take 1 tablet (180 mg total) by mouth in the morning. 02/19/2024 fluticasone (FLONASE) 50 mcg/actuation nasal spray 02/20/2024 furosemide (LASIX) 40 mg tablet Take 1 tablet (40 mg total) by mouth 2 (two) times a day before meals. 02/20/2024 HUMULIN R U-500, CONC, KWIKPEN injection Inject 150 Units of U-500 under the skin in the morning and 150 Units of U-500 at noon and 150 Units of U-500 in the evening and 150 Units of U-500 before bedtime. 150-190 units QID. 02/20/2024 HYDROcodone-acetaminophen (NORCO) 5-325 mg per tablet Take 1 tablet by mouth every 4 (four) hours as needed for pain. Past Week inulin (FIBER GUMMIES) 2 gram tablet,chewable Chew and swallow. 02/19/2024 pzaxe-[id number]-4-fog-gjb-cxbseu 839-69-84-50 mg capsule Take by mouth. 02/20/2024 Lactobacillus acidophilus (ACIDOPHILUS) capsule Take 1 capsule by mouth in the morning and 1 capsule at noon and 1 capsule in the evening. Take with meals. 02/20/2024 levothyroxine (SYNTHROID, LEVOTHROID) 150 MCG tablet 02/20/2024 lisinopriL (PRINIVIL,ZESTRIL) 10 mg tablet Take 1 tablet (10 mg total) by mouth in the morning. 02/20/2024 LYRICA 75 mg capsule Take 1 capsule (75 mg total) by mouth 3 (three) times a day. 02/20/2024 metoprolol tartrate (LOPRESSOR) 50 mg tablet Take 1.5 tablets (75 mg total) by mouth in the morningand 1.5 tablets (75 mg total) before bedtime. Indications: high blood pressure. 02/20/2024 montelukast (SINGULAIR) 10 mg tablet 02/20/2024 multivitamin tablet,chewable Chew 2 capsules and swallow. 02/20/2024 ondansetron ODT (ZOFRAN-ODT) 4 mg disintegrating tablet Dissolve 1 tablet (4 mg total) on tongue every 8 (eight) hours as needed for nausea. Past Week pantoprazole (PROTONIX) 40 mg EC tablet Take 1 tablet (40 mg total) by mouth in the morning and 1 tablet (40 mg total) before bedtime. Indications: gastroesophageal reflux disease. 02/20/2024 SYMBICORT 160-4.5 mcg/actuation inhaler Inhale 2 puffs in the morning and 2 puffs before bedtime. Indications: bronchospasm prevention with COPD. 02/20/2024 tiotropium bromide 1.25 mcg/actuation mist Inhale 2 puffs in the morning. 02/20/2024 traMADoL (ULTRAM) 50 mg tablet Take 1 tablet (50 mg total) by mouth every 6 (six) hours as needed for pain. 02/20/2024 TRULICITY 4.5 mg/0.5 mL pen injector Inject 4.5 mg under the skin once a week. Sundays Past Week vitamin B complex (SUPER B-50 COMPLEX PLUS ORAL) Take by mouth. 02/20/2024 vitamin E, dl,tocopheryl acet, (VITAMIN E, DL, ACETATE,) 400 unit capsule Take 1 capsule (400 Unitstotal) by mouth in the morning. 02/20/2024 cholecalciferol, vitamin D3, 2,000 units capsule Take 1 capsule (2,000 Units total) by mouth in themorning. (Patient not taking: Reported on 02/20/2024) Past Month Current Facility-Administered Medications Medication Dose Route Frequency Provider Last Rate Last Admin acetaminophen (TYLENOL) tablet 650 mg 650 mg oral Q4H PRN Leticia Dong APRN- MEDICAL PSYCHOTHERAPIST 650 mg at 02/20/24 2328 allopurinoL (ZYLOPRIM) tablet 300 mg 300 mg oral Daily Leticia Dong APRN-MEDICAL PSYCHOTHERAPIST 300 mg at 02/23/24 0810 cyclobenzaprine (FLEXERIL) tablet 10 mg 10 mg oral Nightly Leticia Dong APRN- MEDICAL PSYCHOTHERAPIST 10 mg at 02/22/24 2209 dextrose (GLUTOSE) 40 % gel 15 g 15 g oral PRN Leticia Dong APRN-JOSE dextrose 5 % (D5W) infusion 100 mL/hr intravenous Continuous PRN Leticia Dong APRN-JOSE dextrose 50 % in water (D50W) 50% solution 25 mL 25 mL intravenous PRN Leticia Dong APRN-MEDICAL PSYCHOTHERAPIST fluticasone furoate-vilanteroL (BREO ELLIPTA) 200-25 mcg/dose inhaler 1 puff 1 puff inhalation Daily Leticia Dong APRN-MEDICAL PSYCHOTHERAPIST 1 puff at 02/23/24 1151 glucagon HCL injection 1 mg 1 mg intramuscular PRN Leticia Dong APRN-JOSE [START ON 02/24/2024] heparin (porcine) injection 5,000 Units 5,000 Units subcutaneous Q8H JONATHAN Manolo Padilla APRN-JOSE HYDROcodone-acetaminophen (NORCO) 5-325 mg per tablet 1 tablet 1 tablet oral Q4H PRN Leticia Dong APRN-JOSE 1 tablet at 02/23/24 0935 insulin lispro (HumaLOG) injection 2-10 Units 2-10 Units subcutaneous TID with meals Manolo Padilla APRN-JOSE 8 Units at 02/23/24 1135 insulin lispro (HumaLOG) injection 2-8 Units 2-8 Units subcutaneous Nightly Manolo Padilla APRN-JOSE levothyroxine (SYNTHROID, LEVOTHROID) tablet 150 mcg 150 mcg oral Daily Leticia Dong APRN-MEDICAL PSYCHOTHERAPIST 150mcg at 02/23/24 0512 magnesium sulfate IVPB 2000 mg/50 mL in iso-osmotic water (40 mg/mL premix) 2,000 mg intravenous PRN Leticia Dong APRN-JOSE magnesium sulfate IVPB 4000 mg/100 mL in iso-osmotic water (40 mg/mL premix) 4,000 mg intravenous PRN Leticia Dong APRN-JOSE metoprolol tartrate (LOPRESSOR) tablet 75 mg 75 mg oral BID Leticia Dong APRN- MEDICAL PSYCHOTHERAPIST 75 mg at 02/23/24 0810 montelukast (SINGULAIR) tablet 10 mg 10 mg oral Nightly Leticia Dong APRN-MEDICAL PSYCHOTHERAPIST 10 mg at 02/22/24 2209 morphine injection 2 mg 2 mg intravenous Q4H PRN Leticia Dong APRN-JOSE ondansetron (PF) (ZOFRAN) injection 4 mg 4 mg intravenous Q6H PRN Leticia Dong APRN-JOSE pantoprazole (PROTONIX) EC tablet 40 mg 40 mg oral QAM AC Leticia Dong APRN- MEDICAL PSYCHOTHERAPIST 40 mg at 512 potassium chloride (KLOR-CON M 20) CR tablet 30-50 mEq 30-50 mEq oral PRN SHAYLA Stephens Or potassium chloride (KAYCIEL) 20 mEq/15 mL solution 30-50 mEq 30-50 mEq oral PRN Leticia Dong APRN-JOSE pregabalin (LYRICA) capsule 75 mg 75 mg oral TID Leticia Dong APRN-MEDICAL PSYCHOTHERAPIST 75 mg at 02/23/24 1300 sennosides-docusate sodium (SENOKOT-S) 8.6-50 mg 1 tablet 1 tablet oral Q12H PRN Leticia Dong APRN-JOSE sodium chloride 0.9 % flush 3 mL 3 mL intravenous PRN Antonio Parra DO sodium chloride 0.9 % flush bag 25 mL intravenous PRN Leticia Dong APRN-JOSE sodium chloride 0.9 % infusion 20 mL/hr intravenous Continuous PRN SHAYLA Stephens sodium hypochlorite (DAKIN'S 1/4 STRENGTH) 0.125 % external solution 1 Application 1 Application topical BID SHAYLA Rai vancomycin (VANCOCIN) 1,500 mg in sodium chloride 0.9 % 500 mL IVPB 1,500 mg intravenous Q36H Leticia Dong APRN-JOSE Stopped at 02/22/24 1015 Nutrition Findings/Summary: Noted non stage abdominal wounds that are infected. Surgery consult pending. Anthropometrics: Ht Readings from Last 1 Encounters: 02/20/24 157.5 cm (5' 2 ) Wt Readings from Last 10 Encounters: 02/22/24 124.2 kg (273 lb 12.8 oz) 08/14/23 125.6 kg (276 lb 14.4 oz) 08/14/23 125.6 kg (276 lb 12.8 oz) 12/10/17 128.8 kg (284 lb) [place] Body Weight: 50 kg Percent [place] Body Weight: 248 % Body Mass Index: Body mass index is 50.08 kg/m . BMI Category: Obese class 3 (> or = 40.00) Diet/ Nutrition Order Review: Dietary Orders (From admission, onward) Start Ordered 02/24/24 0001 Adult diet NPO Diet effective midnight Question: Diet Type: Answer: NPO 02/23/24 1232 02/20/24 1855 Adult diet Regular Texture; Consistent Carb 255 grams (2000 kcal); No Added Salt (3-4gm Sodium) Diet effective now Question Answer Comment Diet Type: Regular Texture Carbohydrate Modifiers: Consistent Carb 255 grams (2000 kcal) Sodium Modifiers: No Added Salt (3-4 gm Sodium) 02/20/24 1855 Diet Intakes: Percent Meals Eaten (%): 100 (02/23/24 0958) 100 [x] 75-100% [] 50-75% [] 25-50% [] <25% [] NPO [] Unable to assess Intake/ Output Last 24 hrs: Intake/Output Summary (Last 24 hours) at 02/23/2024 1303 Last data filed at 02/23/2024 1301 Gross per 24 hour Intake 465 ml Output 1100 ml Net -635 ml Oral Supplemental Intake/ Acceptance: just started wound supplements at this time [] 75-100% [] 50-75% [] 25-50% [] <25% [] NPO [x] Unable to assess [place] Body Weight (50 kg) used to estimate nutrition needs Estimated Energy Needs: ~3067-4893 kcals daily. Method and weight used: 30-35 kcal/kg IBW Estimated Protein Needs: ~75-110 grams daily. Method and weight used: 1.5-2.2 gm/kg IBW Estimated Fluid Needs: ~1249-2660 ml daily. Method Used: 1 ml/kcal General Needs: Malnutrition Status: Malnutrition Present: No NUTRITION DIAGNOSIS: Intake Diagnosis: Increased nutrient needs HMB (NI 5.1) related to abdominal wounds as evidenced bydelayed wound healing. NUTRITION INTERVENTIONS: Supplements (medical food, vitamin or mineral): will send BID wound supplement Coordination of nutrition care: spoke with RNClarissa GOALS: Patient to meet calorie and protein needs RECOMMENDATIONS: Started [place] BID to provide for each packet/drink HMB, 90 calories, 7g L-Arginineand 7g L-Glutamine amino acids and 2.5g protein (collagen). NUTRITION MONITORING AND EVALUATION: Will monitor PO intakes, supplement acceptance, Weights, Nutrition Related Labs, POC & Follow. [x] Progressing toward goal [] Not progressing [] Progress toward goal declining [] Goal achieved Sue Romero RD.,LD. Clinical Dietitian [facility] [phone] 02/23/24 * Ghanshyam Mayberry MD - 02/23/2024 12:29 PM EDT Images from the original note were not included. [facility] [phone] Hospital Medicine Progress Note Patient: Mary Jane Foy [facility]ly [facility] Date of : 1970 Room: PCP: SHAYLA KRAFT Admission date: 02/20/2024 3:27 PM Encounter date: 02/23/24 Hospital Day: 4 SUBJECTIVE Chief complaints: Chief Complaint Patient presents with Wound Check Interval History: Status: stable. Hyperglycemic overnight. Started on high-dose sliding scale insulin. Review of Systems Constitutional: Negative for chills and fever. HENT: Negative for ear pain and sore throat. Eyes: Negative for pain and visual disturbance. Respiratory: Negative for cough and shortness of breath. Cardiovascular: Negative for chest pain and palpitations. Gastrointestinal: Negative for abdominal pain and vomiting. Genitourinary: Negative for dysuria and hematuria. Musculoskeletal: Positive for arthralgias. Negative for back pain. Skin: Positive for wound. Negative for color change and rash. Neurological: Positive for weakness. Negative for seizures and syncope. All other systems reviewed and are negative. OBJECTIVE BP 125/51 Pulse 77 Temp 36.7 C (98 F) (Oral) Resp 16 Ht 157.5 cm (5' 2 ) Wt 124.2 kg (273lb 12.8 oz) SpO2 92% BMI 50.08 kg/m Temp: [36.7 C (98 F)-37.6 C (99.7 F)] 36.7 C (98 F) Pulse: [77-92] 77 Resp: [16-20] 16 BP: (125-148)/(51-61) 125/51 SpO2: [92 %-93 %] 92 % O2 Device: None (Room air) O2 Flow Rate (L/min): [0 L/min] 0 L/min Intake/Output Summary (Last 24 hours) at 02/23/2024 1230 Last data filed at 02/23/2024 0958 Gross per 24 hour Intake 465 ml Output -- Net 465 ml Physical Exam Constitutional: Appearance: She is well-developed. She is obese. She is ill-appearing. HENT: Head: Normocephalic and atraumatic. Nose: Nose normal. Eyes: Pupils: Pupils are equal, round, and reactive to light. Cardiovascular: Rate and Rhythm: Normal rate and regular rhythm. Heart sounds: Normal heart sounds. No murmur heard. Pulmonary: Effort: Pulmonary effort is normal. No respiratory distress. Breath sounds: Normal breath sounds. No wheezing. Abdominal: General: Bowel sounds are normal. Palpations: Abdomen is soft. Tenderness: There is no abdominal tenderness. Musculoskeletal: General: Normal range of motion. Cervical back: Neck supple. Lymphadenopathy: Cervical: No cervical adenopathy. Skin: General: Skin is warm and dry. Findings: Erythema present. No rash. Comments: Abd wound , see images in media Neurological: Mental Status: She is alert and oriented to person, place, and time. Cranial Nerves: No cranial nerve deficit. Medications Scheduled: allopurinoL, 300 mg, oral, Daily cyclobenzaprine, 10 mg, oral, Nightly fluticasone furoate-vilanteroL, 1 puff, inhalation, Daily heparin (porcine), 5,000 Units, subcutaneous, Q8H JONATHAN insulin lispro, 2-10 Units, subcutaneous, TID with meals insulin lispro, 2-8 Units, subcutaneous, Nightly levothyroxine, 150 mcg, oral, Daily metoprolol tartrate, 75 mg, oral, BID montelukast, 10 mg, oral, Nightly pantoprazole, 40 mg, oral, QAM AC pregabalin, 75 mg, oral, TID sodium hypochlorite, 1 Application, topical, BID vancomycin, 1,500 mg, intravenous, Q36H Infusions: dextrose 5 % in water, 100 mL/hr sodium chloride 0.9 %, 20 mL/hr As Needed: acetaminophen dextrose dextrose 5 % in water dextrose 50 % in water (D50W) glucagon (human recombinant) HYDROcodone-acetaminophen magnesium sulfate magnesium sulfate morphine injection ondansetron potassium chloride OR potassium chloride sennosides-docusate sodium sodium chloride sodium chloride sodium chloride 0.9 % Allergies: Bactrim [sulfamethoxazole-trimethoprim], Penicillins, Sulfamethoxazole, Sulfanilamide, Trimethoprim, Aspirin, Avelox [moxifloxacin], Azithromycin, Cefzil [cefprozil], Cephalexin, Ciprofloxacin, Percocet [oxycodone-acetaminophen], Soy, and Adhesive Code Status: Full Code Labs Recent Results (from the past 24 hour(s)) Bedside Glucose *Place/Obtain serum glucose if >500(>600 [facility]) per glucometer. Collection Time: 02/22/24 3:54 PM Result Value Ref Range Bedside glucose 423 (HH) 65 - 99 mg/dL Bedside Glucose *Place/Obtain serum glucose if >500(>600 [facility]) per glucometer. Collection Time: 02/22/24 10:17 PM Result Value Ref Range Bedside glucose 416 (HH) 65 - 99 mg/dL Comprehensive metabolic panel Collection Time: 02/23/24 4:27 AM Result Value Ref Range Sodium 135 134 - 146 mmol/L Potassium, Bld 4.5 3.5 - 5.0 mmol/L Chloride 104 98 - 109 mmol/L CO2 23 22 - 32 mmol/L Anion gap 8 5 - 15 mmol/L BUN 39 (H) 5 - 23 mg/dL Creatinine 1.48 (H) 0.40 - 1.00 mg/dL Glucose 252 (H) 65 - 99 mg/dL Calcium 8.4 (L) 8.5 - 10.5 mg/dL Total Protein 6.5 6.0 - 8.0 g/dL Albumin 2.5 (L) 3.2 - 5.3 g/dL Alkaline Phosphatase 36 (L) 39 - 130 U/L AST 15 0 - 41 U/L ALT 15 0 - 31 U/L Total bilirubin 0.6 0.3 - 1.2 mg/dL eGFR (CKD-EPI)non-race dependent 42 (L) >59 ml/min/1.73sq.m Magnesium Collection Time: 02/23/24 4:27 AM Result Value Ref Range Magnesium 2.1 1.8 - 2.6 mg/dL CBC auto differential Collection Time: 02/23/24 4:27 AM Result Value Ref Range White Blood Cells 6.4 4.0 - 11.0 X10E9/L RBC count 2.83 (L) 3.80 - 5.20 X10E12/L Hemoglobin 8.8 (L) 11.7 - 15.5 g/dL Hematocrit 26.5 (L) 35 - 47 % MCV 94 80 - 100 fL MCH 31.1 27 - 34 pg MCHC 33.3 32 - 36 g/dL RDW 13.4 11.5 - 15.0 % Platelets 222 150 - 450 X10E9/L MPV 10.1 7 - 12 fL % neutrophils 54.3 % % lymphocytes 31.6 % % monocytes 9.5 % % eosinophils 3.8 % % Basophils 0.8 % Neutrophils Absolute (A) 3.5 1.5 - 6.6 X10E9/L Lymphocytes Absolute 2.0 1.0 - 3.5 X10E9/L Monocytes Absolute 0.6 0 - 0.9 X10E9/L Eosinophils Absolute 0.2 0.0 - 0.4 X10E9/L Basophils Absolute 0.1 0.0 - 0.2 X10E9/L Bedside Glucose *Place/Obtain serum glucose if >500(>600 [facility]) per glucometer. Collection Time: 02/23/24 11:20 AM Result Value Ref Range Bedside glucose 346 (H) 65 - 99 mg/dL Radiology No results found. HOSPITAL PROBLEM LIST Principal Problem: Wound infection Active Problems: Acquired hypothyroidism Diabetic neuropathy ([facility]) Hyperlipidemia Obesity, morbid ([facility]) Supraventricular tachycardia ([facility]) Type 2 diabetes mellitus without complication ([facility]) Stage 2 chronic kidney disease ASSESSMENT & PLAN Cellulitis of abdomen -Infectious Disease, Wound Care and General surgery consulted - general surgery debride tomorrow morning. - continue on vancomycin, -Wound culture, blood culture pending -Mult allergies SVT/HTN -Follows with cardio -On lopressor and plavix -Holding lisinopril for acute kidney injury -BP/HR has been stable Acute kidney injury on CKD stage 2 -Stated her baseline GFR is approximately 45 -stable -continue to monitor daily. Normocytic anemia -hemoglobin stable Diabetes -Hemoglobin A1c 9.6 - hold U 500 insulin. - Patient to bring in pump from home. - Will monitor blood glucose a.c. and HS cover with high-dose sliding scale coverage until able to get home pump Hypothyroidism -tsh wnl -cont levothyroxine Asthma -on room air -cont home inhalers VTE - Hold heparin until after debridement tomorrow DC planning -from home. Appreciate Infectious Disease general surgery input - Manolo Padilla APRN-JOSE 02/23/24 12:31 PM [facility] Internal Medicine 7AM-7PM (all facilities): EpicChat or page through Telebit. 7PM-7AM ([facility], [facility] Psychiatry and Inpatient Rehab): EpicChat or page, [phone]. 7PM-7AM ([place], [place], [place], [place] and [facility] Rehab): EpicChat or page through Telebit. This note is dictated with the use of M*Modal. Please note that this dictation was completed with computer voice recognition software. Quite often unanticipated grammatical, syntax, homophones, and other interpretive errors are inadvertently transcribed by the computer software. Please disregard these errors. Please excuse any errors that have escaped final proofreading. SHAYLA Pinedo 02/23/24 1450 Physician Attestation I, Ghanshyam Mayberry MD, personally performed a face to face diagnostic evaluation on this patient. I have reviewed the note authored by the advance practice provider including history, review of systems,physical examination,medical decision making and agree with the assessment and plan as written. I have seen and evaluated the patient, I have repeated the ramos portions of the physical exam and concur with the IRINEO findings. I have reviewed all laboratory findings and imaging reports/films. I agree with the plan as noted. * Cruzito Burgess RPH - 02/23/2024 5:22 AM EDT Patient U-500 insulin use evaluation: Order is pending until initial pharmacy consult validates the patients home dose. Patients requiring dose of u-500 insulin before initial pharmacy consult is completed will be transitioned to U-100 insulin (subcutaneous correctional scale or IV insulin drip) until the dose can be verified. Thank you. Cruzito Burgess PharmD * Ghanshyam Mayberry MD - 02/22/2024 12:54 PM EDT Images from the original note were not included. [facility] INTERNAL MEDICINE [facility] [address] [place] [id number] Hospital Medicine Progress Note Patient: Mary Jane Foy Formerly [facility] Date of : 1970 Room: PCP: SHAYLA KRAFT Admission date: 02/20/2024 3:27 PM Encounter date: 02/22/24 Hospital Day: 3 SUBJECTIVE Chief complaints: Chief Complaint Patient presents with Wound Check Interval History: Status: stable. No overnight events or new complaints. Wound causing more pain today, IV morphine added prn to use prior to dressing changes Review of Systems Constitutional: Negative for chills and fever. HENT: Negative for ear pain and sore throat. Eyes: Negative for pain and visual disturbance. Respiratory: Negative for cough and shortness of breath. Cardiovascular: Negative for chest pain and palpitations. Gastrointestinal: Negative for abdominal pain and vomiting. Genitourinary: Negative for dysuria and hematuria. Musculoskeletal: Positive for arthralgias. Negative for back pain. Skin: Positive for wound. Negative for color change and rash. Neurological: Positive for weakness. Negative for seizures and syncope. All other systems reviewed and are negative. OBJECTIVE BP 114/51 Pulse 71 Temp 36.4 C (97.5 F) (Oral) Resp 16 Ht 157.5 cm (5' 2 ) Wt 124.2 kg (273 lb 12.8 oz) SpO2 95% BMI 50.08 kg/m Temp: [36.4 C (97.5 F)-37.6 C (99.6 F)] 36.4 C (97.5 F) Pulse: [71-88] 71 Resp: [16-20] 16 BP: (114-131)/(47-63) 114/51 SpO2: [89 %-95 %] 95 % O2 Device: None (Room air) Intake/Output Summary (Last 24 hours) at 02/22/2024 1254 Last data filed at 02/22/2024 1200 Gross per 24 hour Intake 2230.6 ml Output 700 ml Net 1530.6 ml Physical Exam Constitutional: Appearance: She is well-developed. She is obese. She is ill-appearing. HENT: Head: Normocephalic and atraumatic. Nose: Nose normal. Eyes: Pupils: Pupils are equal, round, and reactive to light. Cardiovascular: Rate and Rhythm: Normal rate and regular rhythm. Heart sounds: Normal heart sounds. No murmur heard. Pulmonary: Effort: Pulmonary effort is normal. No respiratory distress. Breath sounds: Normal breath sounds. No wheezing. Abdominal: General: Bowel sounds are normal. Palpations: Abdomen is soft. Tenderness: There is no abdominal tenderness. Musculoskeletal: General: Normal range of motion. Cervical back: Neck supple. Lymphadenopathy: Cervical: No cervical adenopathy. Skin: General: Skin is warm and dry. Findings: Erythema present. No rash. Comments: Abd wound Neurological: Mental Status: She is alert and oriented to person, place, and time. Cranial Nerves: No cranial nerve deficit. Medications Scheduled: allopurinoL, 300 mg, oral, Daily cyclobenzaprine, 10 mg, oral, Nightly fluticasone furoate-vilanteroL, 1 puff, inhalation, Daily heparin (porcine), 5,000 Units, subcutaneous, Q8H JONATHAN insulin lispro, 2-10 Units, subcutaneous, TID with meals insulin lispro, 2-8 Units, subcutaneous, Nightly levothyroxine, 150 mcg, oral, Daily metoprolol tartrate, 75 mg, oral, BID montelukast, 10 mg, oral, Nightly pantoprazole, 40 mg, oral, QAM AC pregabalin, 75 mg, oral, TID sodium hypochlorite, 1 Application, topical, BID vancomycin, 1,500 mg, intravenous, Q36H Infusions: dextrose 5 % in water, 100 mL/hr sodium chloride 0.9 %, 20 mL/hr As Needed: acetaminophen dextrose dextrose 5 % in water dextrose 50 % in water (D50W) glucagon (human recombinant) HYDROcodone-acetaminophen magnesium sulfate magnesium sulfate morphine injection ondansetron potassium chloride OR potassium chloride sennosides-docusate sodium sodium chloride sodium chloride sodium chloride 0.9 % Allergies: Bactrim [sulfamethoxazole-trimethoprim], Penicillins, Sulfamethoxazole, Sulfanilamide, Trimethoprim, Aspirin, Avelox [moxifloxacin], Azithromycin, Cefzil [cefprozil], Cephalexin, Ciprofloxacin, Percocet [oxycodone-acetaminophen], Soy, and Adhesive Code Status: Full Code Labs Recent Results (from the past 24 hour(s)) Thyroid profile includes TSH FT4 Collection Time: 02/21/24 2:14 PM Result Value Ref Range TSH 3.61 0.49 - 4.67 uIU/mL T4, free 1.11 0.61 - 1.60 ng/dL Bedside Glucose *Place/Obtain serum glucose if >500(>600 [facility]) per glucometer. Collection Time: 02/21/24 5:12 PM Result Value Ref Range Bedside glucose 189 (H) 65 - 99 mg/dL Bedside Glucose *Place/Obtain serum glucose if >500(>600 [facility]) per glucometer. Collection Time: 02/21/24 8:44 PM Result Value Ref Range Bedside glucose 216 (H) 65 - 99 mg/dL Comprehensive metabolic panel Collection Time: 02/22/24 4:21 AM Result Value Ref Range Sodium 138 134 - 146 mmol/L Potassium, Bld 4.3 3.5 - 5.0 mmol/L Chloride 108 98 - 109 mmol/L CO2 21 (L) 22 - 32 mmol/L Anion gap 9 5 - 15 mmol/L BUN 38 (H) 5 - 23 mg/dL Creatinine 1.47 (H) 0.40 - 1.00 mg/dL Glucose 105 (H) 65 - 99 mg/dL Calcium 8.5 8.5 - 10.5 mg/dL Total Protein 6.5 6.0 - 8.0 g/dL Albumin 2.6 (L) 3.2 - 5.3 g/dL Alkaline Phosphatase 37 (L) 39 - 130 U/L AST 23 0 - 41 U/L ALT 16 0 - 31 U/L Total bilirubin 0.6 0.3 - 1.2 mg/dL eGFR (CKD-EPI)non-race dependent 42 (L) >59 ml/min/1.73sq.m Magnesium Collection Time: 02/22/24 4:21 AM Result Value Ref Range Magnesium 2.1 1.8 - 2.6 mg/dL CBC auto differential Collection Time: 02/22/24 4:21 AM Result Value Ref Range White Blood Cells 7.9 4.0 - 11.0 X10E9/L RBC count 2.94 (L) 3.80 - 5.20 X10E12/L Hemoglobin 9.2 (L) 11.7 - 15.5 g/dL Hematocrit 27.6 (L) 35 - 47 % MCV 94 80 - 100 fL MCH 31.2 27 - 34 pg MCHC 33.3 32 - 36 g/dL RDW 13.8 11.5 - 15.0 % Platelets 253 150 - 450 X10E9/L MPV 10.3 7 - 12 fL % neutrophils 60.2 % % lymphocytes 26.7 % % monocytes 9.2 % % eosinophils 3.4 % % Basophils 0.5 % Neutrophils Absolute (A) 4.7 1.5 - 6.6 X10E9/L Lymphocytes Absolute 2.1 1.0 - 3.5 X10E9/L Monocytes Absolute 0.7 0 - 0.9 X10E9/L Eosinophils Absolute 0.3 0.0 - 0.4 X10E9/L Basophils Absolute 0.0 0.0 - 0.2 X10E9/L Bedside Glucose *Place/Obtain serum glucose if >500(>600 [facility]) per glucometer. Collection Time: 02/22/24 12:14 PM Result Value Ref Range Bedside glucose 280 (H) 65 - 99 mg/dL Radiology No results found. HOSPITAL PROBLEM LIST Principal Problem: Wound infection Active Problems: Acquired hypothyroidism Diabetic neuropathy ([facility]) Hyperlipidemia Obesity, morbid ([facility]) Supraventricular tachycardia ([facility]) Type 2 diabetes mellitus without complication ([facility]) Stage 2 chronic kidney disease ASSESSMENT & PLAN Cellulitis of abdomen -Infectious Disease, Wound Care and General surgery consulted -Currently on vancomycin, previously on doxycycline outpatient -Wound culture, blood culture pending -Mult allergies SVT/HTN -Follows with cardio -On lopressor and plavix -Holding lisinopril for acute kidney injury -BP/HR has been stable Acute kidney injury on CKD stage 2 -Stated her baseline GFR is approximately 45 -improved, received fluids Normocytic anemia -hemoglobin stable Diabetes -Hemoglobin A1c 9.6 -ISS -stated she is on U500, but this is not what she has been filling Hypothyroidism -tsh wnl -cont levothyroxine Asthma -on room air -cont home inhalers VTE -heparin sub q DC planning -from home Leticia Dong APRN-MEDICAL PSYCHOTHERAPIST 02/22/2024 12:54 PM [facility] Internal Medicine 7AM-7PM (all facilities): EpicChat or page through Telebit. 7PM-7AM ([facility], [facility] Psychiatry and Inpatient Rehab): EpicChat or page, [phone]. 7PM-7AM ([place], [place], [place], [place] and [facility] Rehab): EpicChat or page through [employer]. Leticia Dong APRN-MEDICAL PSYCHOTHERAPIST 02/22/24 1301 Physician Attestation I, Ghanshyam Mayberry MD, personally performed a face to face diagnostic evaluation on this patient. I have reviewed the note authored by the advance practice provider including history, review of systems,physical examination,medical decision making and agree with the assessment and plan as written. I have seen and evaluated the patient, I have repeated the ramos portions of the physical exam and concur with the IRINEO findings. I have reviewed all laboratory findings and imaging reports/films. I agree with the plan as noted. * Nicholas Figueroa [facility] - 02/22/2024 7:49 AM EDT Consult for pharmacy to dose Vancomycin for cellulites, abdominal wounds. BUN= 38, Scr= 1.47 this morning, improving since admission. New Calculations WT= 124.2kg Vd= 86.94L Crcl= 34.2ml/hr CL= 2.052L/HR Ke= 0.0236hrs- T 1/2= 29.36hrs Will dose at 1,500mg every 36 hours. Monitor BUN/Scr daily and draw trough on 02-23-24, which will be before 3rd dose total. Nicholas Figueroa PharmD [facility] documented [facility] Progress note* Wound Care - Fiorella Martinez RN - 02/26/2024 10:26 AM EDT Images from the original note were not included. WOUND CARE NOTE Date of Admission: 02/20/2024 3:27 PM Reason for Consult: Abdominal wounds History of Present Illness: Authumn D [facility]ly [facility] who presents with Abdominal wounds due to a spider bite . Wound has been present since since January 03. Patient has been being seen in the wound clinic. She was sent down to the ER after being seen on Friday02/20/24 due to possible cellulitis of the abdomen.Dr. Amaya debride wound on 02/24/24 in surgery. Pain is worsened with touching. Pain is improved with Medication and rest. Current wound pain 4/10. Vital Signs: BP (!) 93/34 Pulse 76 Temp 36.6 C (97.8 F) (Oral) Resp 16 Ht 157.5 cm (5' 2 ) Wt 126.8 kg (279 lb 9.6 oz) SpO2 91% BMI 51.14 kg/m ID is consulted and managing patient antibiotics Wound Assessment: Wound 02/24/24 Incision Abdomen N/A (Active) Wound Image 02/26/24 1000 Site Assessment Clean;Dry 02/26/24 1004 Molly-wound Assessment Dark edges; Blanchable 02/26/24 1004 Shape See photo 02/26/24 1004 Wound Length (cm) 5.7 cm 02/26/24 1000 Wound Width (cm) 12.3 cm 02/26/24 1000 Wound Surface Area (cm^2) 70.11 cm^2 02/26/24 1000 Wound Depth (cm) 2.7 cm 02/26/24 1000 Wound Volume (cm^3) 189.297 cm^3 02/26/24 1000 Closure Open to air 02/25/24 1000 Drainage Description Serosanguineous 02/26/24 1004 Drainage Amount Scant 02/26/24 1004 Treatments Cleansed with;Dakins solution 02/26/24 1004 Debridement Performed? N 02/26/24 1000 Dressing Type Dry Dressing 02/26/24 1004 Dressing Changed Changed 02/26/24 1004 Dressing Status Clean;Dry;Intact 02/26/24 1004 Tunneling 1 (cm) 3.2 cm 02/26/24 1000 Tunneling 1 Clock Position of Wound 1 o'clock 02/26/24 1000 Pressure Injury Stage 3 02/26/24 1000 Plan of care discussed with wound care services MEDICAL PSYCHOTHERAPIST Plan is for patient to go home with [facility] Wound Plan Dressing: Apply moistened gauze with 0.125% Dakins then secure with dry dressing. Change BID Follow up: Will continue to follow while inpatient. Patient has a follow up appointment in the wound clinic. Thank you for allowing us to participate in the care of this patient. Please feel free to call us with any questions or concerns. Fiorella Martinez RN [facility] Enterostomal/Wound Care Preferred contact via Ext. [phone], [employer] 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 Tele-Infectious Disease Telemedicine progress Note Consent Statement: I discussed risks, benefits, and alternatives of a real-time synchronous audiovisual consultation with the patient (and any accompanying persons) including the risks that the patient's personal health details and medical records will be discussed over real-time, synchronous, interactive video/audio/telecommunication technology,the visit will not be recorded without the express consent of both the provider and the patient, and that there are some limitations compared to [id number] evaluations. We elected to proceed. Our team prefers to use EpicChat for communication. We make every effort to keep the Treatment Teamin Epic updated. Patient name: Mary Jane Foy [facility] Patient Today's Date and Time: 02/26/2024, 9:35 AM Admission Date: 02/20/2024 Impression /Plan: Open abdominal wall wound Abdominal wall infection Presented with chronic ulcers to right lower abdomen, wound care clinic on January 29. She was receiving doxycycline and fluconazole as an outpatient. 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 She has completed 7 days of vancomycin She can dc 5 more days of fluconazole to complete a 7 day course Discussed with Dr. Lopez Op note did not note any sign of infection Diabetes mellitus type 2 Not well controlled most recent A1c 9.6 Reinforced importance of strict glycemic control for healing Acute kidney injury on CKD stage 2 Subjective Interval History: And notes reviewed. Patient seen assessed at the bedside via videochat with assistance from RN no fevers chills or chest pain. Objective Physical Examination : BP (!) 93/34 Pulse 76 Temp 36.6 C (97.8 F) (Oral) Resp 16 Ht 157.5 cm (5' 2 ) Wt 126.8 kg(279 lb 9.6 oz) SpO2 91% BMI 51.14 kg/m Temperature Range: Temp: 36.6 C (97.8 F) Temp Av.7 C (98 F) Min: 36.4 C (97.5 F) Max: 36.9 C (98.4 F) CONSTITUTIONAL - chronically ill appearing SKIN -pale CARDIOVASCULAR -RRR RESPIRATORY - non-labored GASTROINTESTINAL - abdominal wound photo below MUSCULOSKELETAL - No erythema, swelling, or nodules of the joints NEUROLOGIC - bulk and tone normal no atrophy noted Laboratory data: I have independently reviewed the following labs: Results from last 7 days Lab Units 02/26/24 0502 02/25/24 0430 02/24/24 0431 WBC X10E9/L 6.5 6.6 6.4 HEMOGLOBIN g/dL 8.4* 8.8* 8.8* HEMATOCRIT % 25.4* 26.3* 26.4* MCV fL 93 94 94 PLATELETS X10E9/L 232 240 224 NEUTROS ABS X10E9/L 3.8 4.1 3.7 LYMPHS ABS AUTO X10E9/L 1.8 1.7 1.9 MONOS ABS AUTO X10E9/L 0.6 0.5 0.6 EOS ABS AUTO X10E9/L 0.2 0.3 0.3 BASOS ABS AUTO X10E9/L 0.0 0.0 0.1 Results from last 7 days Lab Units 02/26/24 0502 02/25/24 0430 02/24/24 0431 SODIUM mmol/L 133* 137 133* POTASSIUM mmol/L 4.8 4.5 4.7 CHLORIDE mmol/L 102 107 102 CO2 mmol/L 21* 22 21* BUN mg/dL 46* 39* 45* CREATININE mg/dL 1.48* 1.25* 1.36* CALCIUM mg/dL 8.5 8.4* 8.4* ALK PHOS U/L 38* 39 38* ALT U/L 13 15 14 AST U/L 15 18 16 Results from last 7 days Lab Units 02/21/24 0438 02/20/24 1552 CRP mg/dL -- 10.2* HEMOGLOBIN A1C % 9.6* -- Imaging Studies: No results found. I have personally reviewed this study. Cultures: Microbiology Results Procedure Component Value Units Date/Time Tissue culture includes gram stain [[id number]] Collected: 02/24/241552 Specimen: Tissue from Abdomen Updated: 02/25/24842 Gram Stain Result 0 to 1 WHITE BLOOD CELLS/LPF 0 SQUAMOUS EPITHELIAL CELLS/LPF NO ORGANISMS SEEN Culture PENDING Blood culture #2 [[id number]] Collected: 02/20/241917 Specimen: Blood Updated: 02/25/242202 Culture NO GROWTH 5 DAYS Blood culture #1 [[id number]] Collected: 02/20/241909 Specimen: Blood Updated: 02/25/242202 Culture NO GROWTH 5 DAYS Wound culture superficial includes gram stain [[id number]] (Abnormal) Collected: 02/20/24 1710 Specimen: Wound Swab Updated: 02/25/24 1053 Specimen Notes SPECIMEN 2 Gram Stain Result >25 WHITE BLOOD CELLS/LPF 0 to 1 SQUAMOUS EPITHELIAL CELLS/LPF MODERATE GRAM POSITIVE COCCI FEW GRAM NEGATIVE RODS RARE YEAST Culture MANY ACHROMOBACTER SPECIES ALONG WITH MANY NORMAL SKIN ERIC Wound culture superficial includes gram stain [[id number]] Collected: 02/20/24 1507 Specimen: Wound Swab Updated: 02/22/24 1025 Specimen Notes SPECIMEN 1 Gram Stain Result 10 to 24 WHITE BLOOD CELLS/LPF 0 to 1 SQUAMOUS EPITHELIAL CELLS/LPF FEW GRAM POSITIVE COCCI RARE GRAM NEGATIVE RODS Culture MANY MIXED GRAM POSITIVE AND GRAM NEGATIVE ORGANISMS NO STAPHYLOCOCCUS AUREUS ISOLATED NO PSEUDOMONAS AERUGINOSA ISOLATED NO BETA HEMOLYTIC STREPTOCOCCI ISOLATED Medications: allopurinoL, 300 mg, oral, Daily cyclobenzaprine, 10 mg, oral, Nightly fluconazole, 200 mg, oral, Daily fluticasone furoate-vilanteroL, 1 puff, inhalation, Daily heparin (porcine), 5,000 Units, subcutaneous, Q8H JONATHAN insulin lispro, 3-18 Units, subcutaneous, With meals and nightly levothyroxine, 150 mcg, oral, Daily meropenem, 1,000 mg, intravenous, Q12H metoprolol tartrate, 75 mg, oral, BID montelukast, 10 mg, oral, Nightly pantoprazole, 40 mg, oral, QAM AC pregabalin, 75 mg, oral, TID sodium hypochlorite, 1 Application, topical, BID vancomycin, 1,500 mg, intravenous, Q24H This progress note was completed using a voice test lead system. Every effort was made to ensure accuracy; however, inadvertent computerized test lead errors may be present. Thank you for allowing us to participate in the care of this patient. Rebecca Malloy CNP I prefer to be contacted via cell phone at [phone] SHAYLA Bolaños 02/26/242114 SHAYLA Bolaños 02/26/242115 [facility]09-26-2024 Plan of care note* Plan of Care - Lily Gomez RN - 02/26/2024 8:59 AM EDT Problem: Pain Goal: Patient goal is pain score less than 4, able to rest, and participant in treatment plan as appropriate Description: INTERVENTIONS: 1. Encourage patient or legal outside sales representative insurance to report early pain and ask for pain medicine when needed 2. Assess pain using appropriate pain scale and include the scale used when documenting 3. Administer analgesics based on type and severity of pain and evaluate response within appropriate time frame 4. Implement non-pharmacological measures as appropriate and evaluate response 5. Consider cultural and social influences on pain and pain management 6. Notify LIP if interventions ineffective or patient reports new pain 7. Monitor vital signs including pulse ox, end-tidal CO2 based on pain intervention 8. Reassess pain per policy 9. Teach patient or legal outside sales representative insurance interventions for comforting Outcome: Progressing Note: Evaluation of progress towards goal: Pain assessed and treated accordingly. Problem: Safety Goal: Patient will be injury free during hospitalization Description: INTERVENTIONS: 1. Assess patient's risk for falls and implement fall prevention plan of care per policy 2. Provide and maintain a safe environment 3. Proper use of double Identifiers 4. Medication administration using the 5 rights 5. Hand hygiene 6. Specimens are labeled at the bedside 7. Instruct patient/ patient outside sales representative insurance about use of safety devices 8. Include patient/ patient outside sales representative insurance in decisions related to safety Outcome: Progressing Note: Evaluation of progress towards goal: PT is free of falls, hourly rounding is completed, area is kept clear. Problem: Infection Goal: Absence of infection during hospitalization Description: Interventions: 1. Assess and monitor for signs and symptoms of infection 2. Monitor lab/diagnostic results 3. Monitor all insertion sites i.e., indwelling lines, tubes and drains 4. Monitor endotracheal (as able) and nasal secretions for changes in amount and color 5. Administer medications as ordered 6. Instruct and encourage patient and family to use good hand hygiene technique 7. Identify and instruct patient/patient outside sales representative insurance in use of appropriate isolation precautionsfor identified infection/symptoms 8. Provide and discuss with patient/patient outside sales representative insurance on educational MDRO sheet 9. Encourage and monitor nutritional status daily and consult retort feeder ground bone if indicated 10. Implement neutropenic guidelines as needed 11. Review exposure to history of communicable disease and recent travel history on admission 12. Encourage annual influenza vaccine 13. Encourage pneumonia vaccine Outcome: Progressing Note: Evaluation of progress towards goal: Pt assessed and monitored for signs and symptoms of infection, lab and diagnostic results monitored as needed, administer medications as needed. Problem: Knowledge Deficit Goal: Patient/patient outside sales representative insurance demonstrates understanding of disease process, treatment plan,medications, and discharge instructions Description: INTERVENTIONS 1. Complete learning assessment and assess knowledge base 2. Provide teaching at level of understanding 3. Provide teaching via preferred learning method(s) Outcome: Progressing Note: Evaluation of progress towards goal: Learning assessment and knowledge base assessed, teaching provided at an understandable level as needed. Problem: Glucose Imbalance Goal: Clinical indication of glucose balance is achieved Description: Patient's goal is: INTERVENTIONS 1. Monitor blood glucose levels as ordered 2. Administer medications as ordered 3. Notify physician of ineffective treatment plan Outcome: Progressing Note: Evaluation of progress towards goal: Glucose to be monitored and treated accordingly [facility]09-26-2024 Plan of care note* Plan of Care - Yandy Crooks RN - 02/26/2024 12:49 AM EDT Problem: Pain Goal: Patient goal is pain score less than 4, able to rest, and participant in treatment plan as appropriate Description: INTERVENTIONS: 1. Encourage patient or legal outside sales representative insurance to report early pain and ask for pain medicine when needed 2. Assess pain using appropriate pain scale and include the scale used when documenting 3. Administer analgesics based on type and severity of pain and evaluate response within appropriate time frame 4. Implement non-pharmacological measures as appropriate and evaluate response 5. Consider cultural and social influences on pain and pain management 6. Notify LIP if interventions ineffective or patient reports new pain 7. Monitor vital signs including pulse ox, end-tidal CO2 based on pain intervention 8. Reassess pain per policy 9. Teach patient or legal outside sales representative insurance interventions for comforting Outcome: Progressing Note: Evaluation of progress towards goal: pain controlled with norco. Offer pain med prior to dressing changes [facility]09-25-2024 Plan of care note* Plan of Care - Chema Soliz RN - 02/25/2024 5:06 PM EDT Problem: Pain Goal: Patient goal is pain score less than 4, able to rest, and participant in treatment plan as appropriate Description: INTERVENTIONS: 1. Encourage patient or legal outside sales representative insurance to report early pain and ask for pain medicine when needed 2. Assess pain using appropriate pain scale and include the scale used when documenting 3. Administer analgesics based on type and severity of pain and evaluate response within appropriate time frame 4. Implement non-pharmacological measures as appropriate and evaluate response 5. Consider cultural and social influences on pain and pain management 6. Notify LIP if interventions ineffective or patient reports new pain 7. Monitor vital signs including pulse ox, end-tidal CO2 based on pain intervention 8. Reassess pain per policy 9. Teach patient or legal outside sales representative insurance interventions for comforting Outcome: Progressing Note: Evaluation of progress towards goal: Pt able to report pain according to 0/10 pain scale. Medicating patient for pain per orders. [facility]09-25-2024 Progress note* Telehealth Note - SHAYLA Esposito - 02/25/2024 1:52 PM EDT Images from the original note were not included. Division of Infectious Diseases - Progress Note [facility] - TeleMedicine During Business Hours: Please use indidebt for communication. After Hours: Please call for our answering service. Patient name: Mary Jane Foy [facility] Patient Today's Date and Time: 02/25/2024, 1:52 PM Admission Date: 02/20/2024 Primary Care Physician: SHAYLA KRAFT Impression and Recommendations:: Open abdominal wall wound Abdominal wall infection The patient presents with two chronic ulcers on the right lower abdomen, [facility]. She has been following with Wound Care now for several weeks. There was concern for increasing erythema and drainage with a yellowish exudate from the wounds. Wound care consult in potential consideration for surgical debridement is planned for later this afternoon. She has been on doxycycline and fluconazole as an outpatient. 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 Cont. Vanco for gram positive coverage. For the achromobacter , start meropenem. Follow sensitives. Unlikely to have many alternatives given her allergy profile. Will likely need IV coverage at discharge. Start diflucan for the yeast. 02/23: S/p debridement. OP note is pending Follow cultures Subjective Interval History:: Pt seen at bedside via vidyo connect. No fevers or chills. No n/v/d. Tolerating meropenem. Understands she will likely need IV atbx. Objective Physical Examination : BP 113/47 Pulse 69 Temp 36.8 C (98.2 F) (Oral) Resp 17 Ht 157.5 cm (5' 2 ) Wt 123.9 kg (273 lb 3.2 oz) SpO2 91% BMI 49.97 kg/m Temperature Range: Temp: 36.8 C (98.2 F) Temp Av.7 C (98.1 F) Min: 36.4 C (97.6 F) Max: 37.2 C(99 F) *Pt seen via vidyo connect. Portions of the exam pulled from hospitalist documentation and via assessment from the RN at bedside* Constitutional: awake and alert. Cardiovascular: S1, S2 Respiratory: clear non labored. Gastrointestinal/Abdomen: abdominal wound pictured below Musculoskeletal/Extremities: No cyanosis, clubbing, edema, or effusions. Skin: warm, dry, no rashes or lesions noted Neurologic: Bulk and tone are normal. No atrophy is noted. Laboratory data: I have independently reviewed the following labs: Results from last 7 days Lab Units 02/25/24 0430 02/24/24 0431 02/23/24 0427 WBC X10E9/L 6.6 6.4 6.4 HEMOGLOBIN g/dL 8.8* 8.8* 8.8* HEMATOCRIT % 26.3* 26.4* 26.5* MCV fL 94 94 94 PLATELETS X10E9/L 240 224 222 NEUTROS ABS X10E9/L 4.1 3.7 3.5 LYMPHS ABS AUTO X10E9/L 1.7 1.9 2.0 MONOS ABS AUTO X10E9/L 0.5 0.6 0.6 EOS ABS AUTO X10E9/L 0.3 0.3 0.2 BASOS ABS AUTO X10E9/L 0.0 0.1 0.1 Results from last 7 days Lab Units 02/25/24 04302/24/24 04302/23/24426 SODIUM mmol/L 137 133* 135 POTASSIUM mmol/L 4.5 4.7 4.5 CHLORIDE mmol/L 107 102 104 CO2 mmol/L 22 21* 23 BUN mg/dL 39* 45* 39* CREATININE mg/dL 1.25* 1.36* 1.48* CALCIUM mg/dL 8.4* 8.4* 8.4* ALBUMIN g/dL 2.6* 2.6* 2.5* ALK PHOS U/L 39 38* 36* ALT U/L 15 14 15 AST U/L 18 16 15 Results from last 7 days Lab Units 02/21/24 0438 02/20/24 1552 CRP mg/dL -- 10.2* FERRITIN ng/mL 568* -- Results from last 7 days Lab Units 02/21/24437 HEMOGLOBIN A1C % 9.6* Invalid input(s): BILIRUBINU , BILIRUBINNU Imaging Studies: Cultures: Microbiology Results Procedure Component Value Units Date/Time Tissue culture includes gram stain [[id number]] Collected: 02/24/24 155 Specimen: Tissue from Abdomen Updated: 02/25/24 0843 Gram Stain Result 0 to 1 WHITE BLOOD CELLS/LPF 0 SQUAMOUS EPITHELIAL CELLS/LPF NO ORGANISMS SEEN Culture PENDING Blood culture #2 [[id number]] Collected: 02/20/241917 Specimen: Blood Updated: 02/24/242205 Culture NO GROWTH 4 DAYS Blood culture #1 [[id number]] Collected: 02/20/241909 Specimen: Blood Updated: 02/24/242204 Culture NO GROWTH 4 DAYS Wound culture superficial includes gram stain [[id number]] (Abnormal) Collected: 02/20/24 1710 Specimen: Wound Swab Updated: 02/25/24 1053 Specimen Notes SPECIMEN 2 Gram Stain Result >25 WHITE BLOOD CELLS/LPF 0 to 1 SQUAMOUS EPITHELIAL CELLS/LPF MODERATE GRAM POSITIVE COCCI FEW GRAM NEGATIVE RODS RARE YEAST Culture MANY ACHROMOBACTER SPECIES ALONG WITH MANY NORMAL SKIN ERIC Wound culture superficial includes gram stain [[id number]] Collected: 02/20/24 1507 Specimen: Wound Swab Updated: 02/22/24 1025 Specimen Notes SPECIMEN 1 Gram Stain Result 10 to 24 WHITE BLOOD CELLS/LPF 0 to 1 SQUAMOUS EPITHELIAL CELLS/LPF FEW GRAM POSITIVE COCCI RARE GRAM NEGATIVE RODS Culture MANY MIXED GRAM POSITIVE AND GRAM NEGATIVE ORGANISMS NO STAPHYLOCOCCUS AUREUS ISOLATED NO PSEUDOMONAS AERUGINOSA ISOLATED NO BETA HEMOLYTIC STREPTOCOCCI ISOLATED Medications: allopurinoL, 300 mg, oral, Daily cyclobenzaprine, 10 mg, oral, Nightly fluconazole, 200 mg, oral, Daily fluticasone furoate-vilanteroL, 1 puff, inhalation, Daily heparin (porcine), 5,000 Units, subcutaneous, Q8H JONATHAN insulin lispro, 3-18 Units, subcutaneous, With meals and nightly levothyroxine, 150 mcg, oral, Daily meropenem, 1,000 mg, intravenous, Q12H metoprolol tartrate, 75 mg, oral, BID montelukast, 10 mg, oral, Nightly pantoprazole, 40 mg, oral, QAM AC pregabalin, 75 mg, oral, TID sodium hypochlorite, 1 Application, topical, BID vancomycin, 1,500 mg, intravenous, Q24H Thank you for allowing us to participate in the care of this patient. Please call with questions. Erin Chaudhari DNP, CNP From 7AM-7PM: From 7AM-7PM: Please use indidebt for communication From 7PM-7AM: Please call for our answering service. Tele-Infectious DiseaseTelemedicine Consult Note Consent Statement: I discussed risks, benefits, and alternatives of a real-time synchronous audiovisual consultation with the patient (and any accompanying persons) including the risks that the patient's personal health details and medical records will be discussed over real-time, synchronous, interactive video/audio/telecommunication technology, the visit will not be recorded without the express consent of both the provider and the patient, and that there are some limitations compared to [id number] evaluations. We elected to proceed. SHAYLA Esposito 02/24/24 1533 SHAYLA Esposito 02/25/24 7866 hoccer Work Phone: [phone] Progress note* Discharge Planning Note - Michelle Camarena - 02/25/2024 1:45 PM EDT DISCHARGE PLANNING NOTE Referral sent to [facility] ([place]- P# ; F# ) ([place], [place] P# ; F#), [address]- [place] (P# ; F# ); [place] (P# [phone] ; F# [phone]) and [facility] ([facility]) (P# ; F# ) ; [place](P# ; F# ) ; [facility] (P# ; F# ); [facility] (P# ; F# ) ; [facility] (P# ; F# ) ; [facility] (P# ; F# ) [place] (P# ; F# ) [facility]09-25-2024 Progress note* Discharge Planning Note - Michelle Camarena - 02/25/2024 12:02 PM EDT DISCHARGE PLANNING NOTE Referral sent to [facility] [employer] [place] [place] [facility] - (P# ; F# ) and [facility] ([place]- P# ; F# ) ([place], [place] P# ; F#) [facility]09-25-2024 Progress note* Discharge Planning Note - Alona Okeefe - 02/25/2024 11:12 AM EDT DISCHARGE PLANNING NOTE Luizumn D [facility] Care Navigation met with patient at bedside. We currently reviewed where we are at with treatment and discharge plan. We discuss dressing changes at home. Patient states her mom lives with her and between herself and her mom she feels they can be taught to change dressings on abdomen. We discussed infectious disease note from yesterday and recommendation for IV Merropenum (though the note doesn'tspecify if she will need home therapy). Patient states she feels she can connect herself to her IV antibiotics. Patient would like a referral to [facility] first. And if they are unable to accept we candiscuss other options. Discharge Plan: Possible Option #1 - Home on oral antibiotics. Possible Option #2 - Home with IV PICC line and IV antibiotics administered at home. Will need referral to [facility] pending acceptance. Tasked to the transition center today. Plan of Care: [facility] [phone] or [phone] fax CRF at Discharge Dressing Changes: Umm Weber CNP for wound care is recommending Dakins cleanse and dressing changesBID. Patient and her mother will be teachable caregivers and will complete dressing changes. [facility] to provide education. Follow up appointments as below: Appointment with Ann Fournier (PCP) scheduled for March 03, 2024 @ 1100. Follow up with Wound Clinic scheduled for February 27, 2024. - Alona Okeefe 02/25/24 11:12 AM [facility] declined patient. Referrals fo [facility] sent to the following: Med 1 [facility]. Patient is aware of [facility] declined and agrees with the above referrals. - Alona Okeefe 02/25/24 12:32 PM Patient was accepted [facility], Med 1 and [facility] did not have a final response yet. Patient was agreeable to acceptance of any of the above referrals. Discharge Plan: Possible Option #1 - Home on oral antibiotics. Possible Option #2 - Home with IV PICC line and IV antibiotics administered at home. Will need referral to [facility] (accepted) and [facility] (accepted). Plan of Care: [facility] [phone] fax CRF at Discharge Dressing Changes: Umm Weber CNP for wound care is recommending Dakins cleanse and dressing changesBID. Patient and her mother will be teachable caregivers and will complete dressing changes. [facility] to provide education. Follow up appointments as below: Appointment with Ann Fournier (PCP) scheduled for March 03, 2024 @ 1100. Follow up with Wound Clinic scheduled for February 27, 2024. - Alona Okeefe 02/25/24 1:[address] [facility]09-25-2024 Hospital Discharge instructions* Appointments * Sanjuana Kendrick - 02/25/2024 10:48 AM EDT YOUR SCHEDULED APPOINTMENTS Please make note of this in your schedule as to not miss or call to reschedule. Thank you! Feb 27, 2024 1:30 PM (Arrive by 1:15 PM) WOUND CHECK VISIT with SHAYLA Casanova [facility] ([facility]) [address] [facility] [address] SHAYLA KRAFT PCP - General Family Medicine [phone] [address] Next Steps: Go on 03/03/2024 Instructions: 11:00 am (arrive at 10:45 am) Pt. should bring the following to appointment; Discharge paperwork Picture ID, Insurance card, co-pay, and all current medications in their bottles. Please provide a 24 hour notice for cancellation. Failure to do so will result in the practice declining to see pt. in the future. If you have insurance copay you must bring with you to the appointment. Please arrive about 15 minutes prior to appointment for check-in/registration. For NEW PATIENT APPOINTMENTS, please arrive 30 minutes early to complete new patient paperwork. For NEW patients, MD will not prescribe terminologist pain medication. [facility] Progress note* Discharge Planning Note - Alona Okeefe - 02/25/2024 8:33 AM EDT DISCHARGE PLANNING NOTE Authumn D [facility] Wound clinic follow up appointment made as below. Discharge Plan: Possible Option #1 - Home on oral antibiotics. Possible Option #2 - Home with IV PICC line and IV antibiotics administered at home. Will need referral to [facility]. This option must be used if IV antibiotics are ordered > daily. Possible Option #3 - Home with IV PICC line and IV antibiotics administered at [facility]. Discharge IV antibiotics should be ordered as a therapy plan and first dose scheduled with [facility]. This option can be used only if antibiotics are ordered as a daily infusion. Follow up appointments as below: Appointment with Ann Fournier (PCP) in 12 days from today. Tasked to the transition center. Jayleen Nicole (Wound Clinic) scheduled for February 27, 2024 @ 1:30 p.m. - Alona Okeefe 02/25/24 8:33 AM [facility] [id number] Plan of care note* Plan of Care - Lissette Acuña RN - 02/24/2024 8:34 PM EDT Problem: Pain Goal: Patient goal is pain score less than 4, able to rest, and participant in treatment plan as appropriate Description: INTERVENTIONS: 1. Encourage patient or legal outside sales representative insurance to report early pain and ask for pain medicine when needed 2. Assess pain using appropriate pain scale and include the scale used when documenting 3. Administer analgesics based on type and severity of pain and evaluate response within appropriate time frame 4. Implement non-pharmacological measures as appropriate and evaluate response 5. Consider cultural and social influences on pain and pain management 6. Notify LIP if interventions ineffective or patient reports new pain 7. Monitor vital signs including pulse ox, end-tidal CO2 based on pain intervention 8. Reassess pain per policy 9. Teach patient or legal outside sales representative insurance interventions for comforting Outcome: Progressing Note: Evaluation of progress towards goal: Pt able to report pain according to 0/10 pain scale. Medicating patient for pain per orders. [facility]09-24-2024 Procedure note* Op Note - Balaji Amaya MD - 02/24/2024 3:17 PM EDT Operative Note: Procedure Date: 02/24/2024 Pre-operative Diagnosis: Necrotic wound of abdominal wall Post-operative Diagnosis: same Surgeon: Surgeons and Role: * Balaji Amaya MD - Primary Procedure: Debridement of abdominal wall wound, skin and subcutaneous tissue Anesthesia: MAC EBL: Minimal Specimens: Tissue culture Complications: none immediate Findings: necrotic abdominal wall wound RLQ, no signs of infection. Skin and subcu tissues with black eschar and exudate. Pre-debridement measurements two wounds 7.5 x 3cm and 3.5 x 4 cm. post-debridement measurements 11 x 4 x 2 cm, one larger wound Indications: Mary Jane Suarez is a 53 y.o. female with necrotic wound of abdominal wall. The plan for debridemt was discussed with the patient and family. After a thorough explanation of the risks, benefits, and alternatives the patient agreed to proceed with the operative intervention. Procedure in Detail: The patient was brought to the operating room placed in supine position. Cardiopulmonary monitoringwas initiated. EPC cuffs were placed. Monitored anesthesia care was provided. The patient's abdomenwas prepped and draped in usual sterile fashion. A critical surgical time-out was performed. The wound was examined as above. Pre debridement measurements were obtained. Using sharp dissectionthe skin was incised and incision deepened to the subcutaneous tissue. Using electrocautery all necrotic and nonviable tissue was excised. There was a small skin bridge between the 2 wounds. This wasexcised. Debridement was performed down to the and including the subcutaneous tissue. Post debridement measurements were taken as above. Hemostasis was assured. The wound was packed with wet to dry dressing. That concluded the procedure. No signs of infection were noted. The patient tolerated the procedure well and there were no intraoperative complications. Balaji Amaya MD [facility] [place] [facility]09-24-2024 Attending History and physical note* Balaji Amaya MD - 02/24/2024 3:12 PM EDT HISTORY AND PHYSICAL INTERVAL NOTE: Mary Jane Suarez 1970 [id number] H&P reviewed. The patient was examined and there are no changes to the H&P. Balaji Amaya MD Source Note - Balaji Amaya MD - 02/23/2024 1:29 PM EDT Images from the original note were not included. Chief Complaint: Wound History of Present Illness Mary Jane Suarez is a 53 y.o. female who presented to emergency department on as advised by the wound care clinic. Approximately 3-4 weeks ago she was bit twice by a spider in the right lower abdomen. Initially she was treated as an outpatient with oral antibiotics, however, the wound continued to worsen and she was having increased pain, purulent drainage and fevers. Wound cultures pending. Review of Systems Constitutional: Negative for fever and unexpected weight change. HENT: Negative for trouble swallowing. Respiratory: Negative for shortness of breath. Cardiovascular: Negative for chest pain. Gastrointestinal: Negative for nausea, vomiting, abdominal pain, diarrhea, constipation, blood in stool and black tarry stool. Genitourinary: Negative for dysuria and difficulty urinating. Musculoskeletal: Negative for gait problem. Skin: Positive for wound. Negative for rash. Neurological: Negative for dizziness, weakness and light-headedness. Hematological: Does not bruise/bleed easily. Psychiatric/Behavioral: Negative for confusion. Past Medical History: Diagnosis Date Anemia Asthma COPD (chronic obstructive pulmonary disease) [facility] Diabetes type 2, controlled ([facility]) GI problem Herniation of right side of L4-L5 intervertebral disc High cholesterol Hypertension Hypothyroidism Nerve damage in feet and legs Osteoarthritis Ovarian cancer ([facility] Past Surgical History: Procedure Laterality Date APPENDECTOMY CHOLECYSTECTOMY DISCECTOMY KNEE ARTHROSCOPY Right NASAL SEPTUM SURGERY REPLACEMENT TOTAL KNEE Right SHOULDER HARDWARE REMOVAL TONSILLECTOMY Allergies Allergen Reactions Bactrim [Sulfamethoxazole-Trimethoprim] Anaphylaxis Penicillins Anaphylaxis Sulfamethoxazole Anaphylaxis and Swelling Sulfanilamide Anaphylaxis Trimethoprim Anaphylaxis Aspirin Vomiting Avelox [Moxifloxacin] Hives Azithromycin Hives Cefzil [Cefprozil] Hives Cephalexin Hives Ciprofloxacin Hives Percocet [Oxycodone-Acetaminophen] Vomiting Soy Adhesive Rash Current Facility-Administered Medications: acetaminophen (TYLENOL) tablet 650 mg, 650 mg, oral, Q4H PRN, Leticia Dong APRN-JOSE, 650 mg at 02/20/24 2328 allopurinoL (ZYLOPRIM) tablet 300 mg, 300 mg, oral, Daily, IVÁN Stephens CNP, 300 mg at 02/23/24 0810 cyclobenzaprine (FLEXERIL) tablet 10 mg, 10 mg, oral, Nightly, SHAYLA Stephens, 10 mg at 02/22/24 2209 dextrose (GLUTOSE) 40 % gel 15 g, 15 g, oral, PRN, SHAYLA Stephens dextrose 5 % (D5W) infusion, 100 mL/hr, intravenous, Continuous PRN, SHAYLA Stephens dextrose 50 % in water (D50W) 50% solution 25 mL, 25 mL, intravenous, PRN, SHAYLA Stephens fluticasone furoate-vilanteroL (BREO ELLIPTA) 200-25 mcg/dose inhaler 1 puff, 1 puff, inhalation, Daily, SHAYLA Stephens, 1 puff at 02/23/24 1151 glucagon HCL injection 1 mg, 1 mg, intramuscular, PRN, SHAYLA Stephens [START ON 02/24/2024] heparin (porcine) injection 5,000 Units, 5,000 Units, subcutaneous, Q8H Manolo CASTILLO APRN-CNP HYDROcodone-acetaminophen (NORCO) 5-325 mg per tablet 1 tablet, 1 tablet, oral, Q4H PRN, Leticia Dong APRN-MEDICAL PSYCHOTHERAPIST, 1 tablet at 02/23/24 0935 insulin lispro (HumaLOG) injection 2-10 Units, 2-10 Units, subcutaneous, TID with meals, Manolo Padilla APRN-MEDICAL PSYCHOTHERAPIST, 8 Units at 02/23/24 1135 insulin lispro (HumaLOG) injection 2-8 Units, 2-8 Units, subcutaneous, Nightly, Manolo Padilla APRN-JOSE levothyroxine (SYNTHROID, LEVOTHROID) tablet 150 mcg, 150 mcg, oral, Daily, Leticia Dong LAB[address] RO[address]-MEDICAL PSYCHOTHERAPIST, 150 mcg at 02/23/24 0512 magnesium sulfate IVPB 2000 mg/50 mL in iso-osmotic water (40 mg/mL premix), 2,000 mg, intravenous,PRN, Leticia Dong [address] RO[address]-MEDICAL PSYCHOTHERAPIST magnesium sulfate IVPB 4000 mg/100 mL in iso-osmotic water (40 mg/mL premix), 4,000 mg, intravenous, PRN, Leticia Dong [address] RO[address]-MEDICAL PSYCHOTHERAPIST metoprolol tartrate (LOPRESSOR) tablet 75 mg, 75 mg, oral, BID, Leticia Dong APRN-MEDICAL PSYCHOTHERAPIST, 75 mg at 02/23/24 0810 montelukast (SINGULAIR) tablet 10 mg, 10 mg, oral, Nightly, Leticia Dong [address] RO[address]- MEDICAL PSYCHOTHERAPIST, 10 mg at 02/22/24 2209 morphine injection 2 mg, 2 mg, intravenous, Q4H PRN, Leticia Dong [address] RO[address]-MEDICAL PSYCHOTHERAPIST ondansetron (PF) (ZOFRAN) injection 4 mg, 4 mg, intravenous, Q6H PRN, Leticia Dong LAB[address] RO[address]-MEDICAL PSYCHOTHERAPIST pantoprazole (PROTONIX) EC tablet 40 mg, 40 mg, oral, QAM AC, Leticia Dong [address] RO[address]-MEDICAL PSYCHOTHERAPIST, 40 mg at 02/23/24 0512 potassium chloride (KLOR-CON M 20) CR tablet 30-50 mEq, 30-50 mEq, oral, PRN OR potassium chloride (KAYCIEL) 20 mEq/15 mL solution 30-50 mEq, 30-50 mEq, oral, PRN, Leticia Dong [address] RO[address]-MEDICAL PSYCHOTHERAPIST pregabalin (LYRICA) capsule 75 mg, 75 mg, oral, TID, Leticia Dong APRN-MEDICAL PSYCHOTHERAPIST, 75 mg at 02/23/24 1300 sennosides-docusate sodium (SENOKOT-S) 8.6-50 mg 1 tablet, 1 tablet, oral, Q12H PRN, Leticia Dong APRN-JOSE sodium chloride 0.9 % flush 3 mL, 3 mL, intravenous, PRN, Antonio Parra, sodium chloride 0.9 % flush bag, 25 mL, intravenous, PRN, Leticia Dong APRN-JOSE sodium chloride 0.9 % infusion, 20 mL/hr, intravenous, Continuous PRN, Leticia oDng APRN-JOSE sodium hypochlorite (DAKIN'S 1/4 STRENGTH) 0.125 % external solution 1 Application, 1 Application, topical, BID, Quinton Weber APRN-JOSE vancomycin (VANCOCIN) 1,500 mg in sodium chloride 0.9 % 500 mL IVPB, 1,500 mg, intravenous, Q36H, Leticia Dong APRN-JOSE, Stopped at 02/22/24 1015 Social History Socioeconomic History Marital status: Single Spouse name: Not on file Number of children: Not on file Years of education: Not on file Highest education level: Not on file Occupational History Not on file Tobacco Use Smoking status: Never Smokeless tobacco: Never Vaping Use Vaping status: Never Used Substance and Sexual Activity Alcohol use: Not Currently Drug use: Not Currently Sexual activity: Defer Other Topics Concern Not on file Social History Narrative Not on file Social Determinants of Health Financial Resource Strain: Not on file Food Insecurity: No Food Insecurity (02/20/2024) Hunger Screening Food Insecurity - Worry: Never True Food Insecurity - Inability: Never True Transportation Needs: No Transportation Needs (02/20/2024) PRAPARE - Transportation Lack of Transportation (Medical): No Lack of Transportation (Non-Medical): No Physical Activity: Not on file Stress: Not on file Social Connections: Not on file Interpersonal Safety: Not At Risk (02/20/2024) Humiliation, Afraid, Rape, and Kick questionnaire Fear of Current or Ex-Partner: No Emotionally Abused: No Physically Abused: No Sexually Abused: No Housing Instability: Low Risk (02/20/2024) Housing Instability Housing Instability: No Family History Problem Relation Age of Onset Arthritis Mother Asthma Mother Hypertension Mother Hyperlipidemia Mother Stroke Mother Arthritis Father Diabetes Father Hypertension Father Alzheimer's disease Father Objective Physical Exam Constitutional: General: She is not in acute distress. Appearance: Normal appearance. She is not ill-appearing. HENT: Head: Normocephalic and atraumatic. Mouth/Throat: Mouth: Mucous membranes are moist. Eyes: Pupils: Pupils are equal, round, and reactive to light. Cardiovascular: Rate and Rhythm: Normal rate. Pulmonary: Effort: Pulmonary effort is normal. No respiratory distress. Abdominal: General: There is no distension. Palpations: Abdomen is soft. Tenderness: There is abdominal tenderness in the right lower quadrant. Comments: Right lower quadrant wound with yellow drainage Musculoskeletal: General: Normal range of motion. Skin: General: Skin is warm and dry. Neurological: Mental Status: She is alert and oriented to person, place, and time. Mental status is at baseline. Vital Signs: Blood pressure 125/51, pulse 77, temperature 36.7 C (98 F), temperature source Oral, resp. rate 16, height 157.5 cm (5' 2 ), weight 124.2 kg (273 lb 12.8 oz), SpO2 92%. Respiratory Source: O2 Device: None (Room air) Admission Weight: Weight: 118.4 kg (261 lb) Labs Lab Results Component Value Date WBC 6.4 02/23/2024 HGB 8.8 (L) 02/23/2024 HCT 26.5 (L) 02/23/2024 MCV 94 02/23/2024 PLT 222 02/23/2024 Lab Results Component Value Date GLU 346 (H) 02/23/2024 CALCIUM 8.4 (L) 02/23/2024 K 4.5 02/23/2024 CO2 23 02/23/2024 CL 104 02/23/2024 BUN 39 (H) 02/23/2024 CREATININE 1.48 (H) 02/23/2024 No results found for: AMYLASE No results found for: LIPASE Lab Results Component Value Date ALT 15 02/23/2024 AST 15 02/23/2024 ALKPHOS 36 (L) 02/23/2024 No results found for: INR , PROTIME Assessment Mary Jane Suarez is a 53 y.o.female with right lower quadrant wound. Plan Debridement tomorrow. NPO at midnight. Evaluation included: Preparing to see the patient (e.g., review of tests) Obtaining and/or reviewing separately obtained history Performing a medically appropriate examination and/or evaluation Counseling and educating the patient/family/caregiver Referring and communicating with other health managed care coordinator [email or web address] RENEE DUBOSE APRN-[facility] [place] This note was created with the assistance of a speech recognition program. While intending to generate a timely document that accurately reflects the content of the visit, no guarantee can be provided that every grammatical or spelling mistake has been or will be identified or corrected. Thank you for your understanding. SHAYLA Rubio 02/23/24 1453 Abdominal wound with necrosis. Debridement tomorrow. I have seen and evaluated the patient, and have reviewed the history above and agree. I have repeated the ramos portions of the physical exam and concur with the nurse practitioner's findings. I have reviewed all laboratory findings and imaging reports/films. I agree with the plan as noted above. [facility] [employer] Work Phone: [phone] History and physical note* Balaji Amaya MD - 02/24/2024 3:12 PM EDT HISTORY AND PHYSICAL INTERVAL NOTE: Luizsudheer Danii Dunhamkaitlin 1970 [id number] H&P reviewed. The patient was examined and there are no changes to the H&P. Balaji Amaya MD Source Note - Balaji Amaya MD - 02/23/2024 1:29 PM EDT Images from the original note were not included. Chief Complaint: Wound History of Present Illness Mary Jane Suarez is a 53 y.o. female who presented to emergency department on as advised by the wound care clinic. Approximately 3-4 weeks ago she was bit twice by a spider in the right lower abdomen. Initially she was treated as an outpatient with oral antibiotics, however, the wound continued to worsen and she was having increased pain, purulent drainage and fevers. Wound cultures pending. Review of Systems Constitutional: Negative for fever and unexpected weight change. HENT: Negative for trouble swallowing. Respiratory: Negative for shortness of breath. Cardiovascular: Negative for chest pain. Gastrointestinal: Negative for nausea, vomiting, abdominal pain, diarrhea, constipation, blood in stool and black tarry stool. Genitourinary: Negative for dysuria and difficulty urinating. Musculoskeletal: Negative for gait problem. Skin: Positive for wound. Negative for rash. Neurological: Negative for dizziness, weakness and light-headedness. Hematological: Does not bruise/bleed easily. Psychiatric/Behavioral: Negative for confusion. Past Medical History: Diagnosis Date Anemia Asthma COPD (chronic obstructive pulmonary disease) ([facility] Diabetes type 2, controlled ([facility]) GI problem Herniation of right side of L4-L5 intervertebral disc High cholesterol Hypertension Hypothyroidism Nerve damage in feet and legs Osteoarthritis Ovarian cancer ([facility]) Past Surgical History: Procedure Laterality Date APPENDECTOMY CHOLECYSTECTOMY DISCECTOMY KNEE ARTHROSCOPY Right NASAL SEPTUM SURGERY REPLACEMENT TOTAL KNEE Right SHOULDER HARDWARE REMOVAL TONSILLECTOMY Allergies Allergen Reactions Bactrim [Sulfamethoxazole-Trimethoprim] Anaphylaxis Penicillins Anaphylaxis Sulfamethoxazole Anaphylaxis and Swelling Sulfanilamide Anaphylaxis Trimethoprim Anaphylaxis Aspirin Vomiting Avelox [Moxifloxacin] Hives Azithromycin Hives Cefzil [Cefprozil] Hives Cephalexin Hives Ciprofloxacin Hives Percocet [Oxycodone-Acetaminophen] Vomiting Soy Adhesive Rash Current Facility-Administered Medications: acetaminophen (TYLENOL) tablet 650 mg, 650 mg, oral, Q4H PRN, Leticia Dong APRN-MEDICAL PSYCHOTHERAPIST, 650 mg at 02/20/24 2328 allopurinoL (ZYLOPRIM) tablet 300 mg, 300 mg, oral, Daily, Leticia Dong APRN- MEDICAL PSYCHOTHERAPIST, 300 mg at 02/23/24 08 cyclobenzaprine (FLEXERIL) tablet 10 mg, 10 mg, oral, Nightly, Leticia Dong APRN-MEDICAL PSYCHOTHERAPIST, 10 mg at 02/22/242208 dextrose (GLUTOSE) 40 % gel 15 g, 15 g, oral, PRN, SHAYLA Stephens dextrose 5 % (D5W) infusion, 100 mL/hr, intravenous, Continuous PRN, SHAYLA Stephens dextrose 50 % in water (D50W) 50% solution 25 mL, 25 mL, intravenous, PRN, Leticia Dong APRN-JOSE fluticasone furoate-vilanteroL (BREO ELLIPTA) 200-25 mcg/dose inhaler 1 puff, 1 puff, inhalation, Daily, SHAYLA Stephens, 1 puff at 02/23/24 1151 glucagon HCL injection 1 mg, 1 mg, intramuscular, PRN, SHAYLA Stephens [START ON 02/24/2024] heparin (porcine) injection 5,000 Units, 5,000 Units, subcutaneous, Q8H JONATHAN, SHAYLA Pinedo HYDROcodone-acetaminophen (NORCO) 5-325 mg per tablet 1 tablet, 1 tablet, oral, Q4H PRN, Leticia Dong APRN-JOSE, 1 tablet at 02/23/24 0935 insulin lispro (HumaLOG) injection 2-10 Units, 2-10 Units, subcutaneous, TID with meals, SHAYLA Pinedo, 8 Units at 02/23/24 1135 insulin lispro (HumaLOG) injection 2-8 Units, 2-8 Units, subcutaneous, Nightly, SHAYLA Pinedo levothyroxine (SYNTHROID, LEVOTHROID) tablet 150 mcg, 150 mcg, oral, Daily, Leticia Dong APRN-JOSE, 150 mcg at 02/23/24 0512 magnesium sulfate IVPB 2000 mg/50 mL in iso-osmotic water (40 mg/mL premix), 2,000 mg, intravenous,PRN, Leticia Dong APRN-JOSE magnesium sulfate IVPB 4000 mg/100 mL in iso-osmotic water (40 mg/mL premix), 4,000 mg, intravenous, PRN, Leticia Dong APRN-JOSE metoprolol tartrate (LOPRESSOR) tablet 75 mg, 75 mg, oral, BID, Leticia Dong APRN-JOSE, 75 mg at 02/23/24 0810 montelukast (SINGULAIR) tablet 10 mg, 10 mg, oral, Nightly, Leticia Dong APRN- JOSE, 10 mg at 02/22/24 2209 morphine injection 2 mg, 2 mg, intravenous, Q4H PRN, Leticia Dong APRN-MEDICAL PSYCHOTHERAPIST ondansetron (PF) (ZOFRAN) injection 4 mg, 4 mg, intravenous, Q6H PRN, Leticia Dong APRN-JOSE pantoprazole (PROTONIX) EC tablet 40 mg, 40 mg, oral, QAM AC, Leticia Dong APRN-MEDICAL PSYCHOTHERAPIST, 40 mg at 02/23/24 0512 potassium chloride (KLOR-CON M 20) CR tablet 30-50 mEq, 30-50 mEq, oral, PRN OR potassium chloride (KAYCIEL) 20 mEq/15 mL solution 30-50 mEq, 30-50 mEq, oral, PRN, Leticia Dong APRN-MEDICAL PSYCHOTHERAPIST pregabalin (LYRICA) capsule 75 mg, 75 mg, oral, TID, Leticia Dong APRN-JOSE, 75 mg at 02/23/24 1300 sennosides-docusate sodium (SENOKOT-S) 8.6-50 mg 1 tablet, 1 tablet, oral, Q12H PRN, Leticia Dong APRN-JOSE sodium chloride 0.9 % flush 3 mL, 3 mL, intravenous, PRN, Antonio Parra, DO sodium chloride 0.9 % flush bag, 25 mL, intravenous, PRN, Leticia Dong APRN-JOSE sodium chloride 0.9 % infusion, 20 mL/hr, intravenous, Continuous PRN, Leticia Dong APRN-JOSE sodium hypochlorite (DAKIN'S 1/4 STRENGTH) 0.125 % external solution 1 Application, 1 Application, topical, BID, SHAYLA Rai vancomycin (VANCOCIN) 1,500 mg in sodium chloride 0.9 % 500 mL IVPB, 1,500 mg, intravenous, Q36H, Leticia Dong APRN-JOSE, Stopped at 02/22/24 1015 Social History Socioeconomic History Marital status: Single Spouse name: Not on file Number of children: Not on file Years of education: Not on file Highest education level: Not on file Occupational History Not on file Tobacco Use Smoking status: Never Smokeless tobacco: Never Vaping Use Vaping status: Never Used Substance and Sexual Activity Alcohol use: Not Currently Drug use: Not Currently Sexual activity: Defer Other Topics Concern Not on file Social History Narrative Not on file Social Determinants of Health Financial Resource Strain: Not on file Food Insecurity: No Food Insecurity (02/20/2024) Hunger Screening Food Insecurity - Worry: Never True Food Insecurity - Inability: Never True Transportation Needs: No Transportation Needs (02/20/2024) PRAPARE - Transportation Lack of Transportation (Medical): No Lack of Transportation (Non-Medical): No Physical Activity: Not on file Stress: Not on file Social Connections: Not on file Interpersonal Safety: Not At Risk (02/20/2024) Humiliation, Afraid, Rape, and Kick questionnaire Fear of Current or Ex-Partner: No Emotionally Abused: No Physically Abused: No Sexually Abused: No Housing Instability: Low Risk (02/20/2024) Housing Instability Housing Instability: No Family History Problem Relation Age of Onset Arthritis Mother Asthma Mother Hypertension Mother Hyperlipidemia Mother Stroke Mother Arthritis Father Diabetes Father Hypertension Father Alzheimer's disease Father Objective Physical Exam Constitutional: General: She is not in acute distress. Appearance: Normal appearance. She is not ill-appearing. HENT: Head: Normocephalic and atraumatic. Mouth/Throat: Mouth: Mucous membranes are moist. Eyes: Pupils: Pupils are equal, round, and reactive to light. Cardiovascular: Rate and Rhythm: Normal rate. Pulmonary: Effort: Pulmonary effort is normal. No respiratory distress. Abdominal: General: There is no distension. Palpations: Abdomen is soft. Tenderness: There is abdominal tenderness in the right lower quadrant. Comments: Right lower quadrant wound with yellow drainage Musculoskeletal: General: Normal range of motion. Skin: General: Skin is warm and dry. Neurological: Mental Status: She is alert and oriented to person, place, and time. Mental status is at baseline. Vital Signs: Blood pressure 125/51, pulse 77, temperature 36.7 C (98 F), temperature source Oral, resp. rate 16, height 157.5 cm (5' 2 ), weight 124.2 kg (273 lb 12.8 oz), SpO2 92%. Respiratory Source: O2 Device: None (Room air) Admission Weight: Weight: 118.4 kg (261 lb) Labs Lab Results Component Value Date WBC 6.4 02/23/2024 HGB 8.8 (L) 02/23/2024 HCT 26.5 (L) 02/23/2024 MCV 94 02/23/2024 PLT 222 02/23/2024 Lab Results Component Value Date GLU 346 (H) 02/23/2024 CALCIUM 8.4 (L) 02/23/2024 K 4.5 02/23/2024 CO2 23 02/23/2024 CL 104 02/23/2024 BUN 39 (H) 02/23/2024 CREATININE 1.48 (H) 02/23/2024 No results found for: AMYLASE No results found for: LIPASE Lab Results Component Value Date ALT 15 02/23/2024 AST 15 02/23/2024 ALKPHOS 36 (L) 02/23/2024 No results found for: INR , PROTIME Assessment Mary Jane Suarez is a 53 y.o.female with right lower quadrant wound. Plan Debridement tomorrow. NPO at midnight. Evaluation included: Preparing to see the patient (e.g., review of tests) Obtaining and/or reviewing separately obtained history Performing a medically appropriate examination and/or evaluation Counseling and educating the patient/family/caregiver Referring and communicating with other health managed care coordinator [email or web address]@ SHAYLA RUBIO [facility] General [facility] [place] This note was created with the assistance of a speech recognition program. While intending to generate a timely document that accurately reflects the content of the visit, no guarantee can be provided that every grammatical or spelling mistake has been or will be identified or corrected. Thank you for your understanding. SHAYLA Rubio 02/23/24 1453 Abdominal wound with necrosis. Debridement tomorrow. I have seen and evaluated the patient, and have reviewed the history above and agree. I have repeated the ramos portions of the physical exam and concur with the nurse practitioner's findings. I have reviewed all laboratory findings and imaging reports/films. I agree with the plan as noted above. * Ghanshyam Mayberry MD - 02/21/2024 9:05 AM EDT Images from the original note were not included. [facility] [address] [facility] [id number] Hospital Medicine History & Physical Patient: Mary Jane Suarez Date of : 1970 Room: PCP: ANN FOURNIER APRN-MEDICAL PSYCHOTHERAPIST Admission date: 02/20/2024 3:27 PM Encounter date: 02/21/24 Hospital Day: 2 SUBJECTIVE Mary Jane Suarez is a 53 y.o. female with PMH of diabetes, chronic kidney disease, SVT, asthma, hypothyroidism, who presented to emergency department under the advice of the wound care clinic. Patient stated approximately 3-4 weeks ago got bit twice by a spider, wound has continued to worsen. She was previously on doxycycline, she does have multiple allergies to antibiotics. She was stated shewas also had low-grade fevers at home. Workup in emergency department did show slight acute kidney injury on chronic kidney disease, no leukocytosis, lactate was negative, CRP elevated at 10.2. Blood cultures and wound cultures have been collected. She was started on vancomycin. Will have Infectious Disease and General surgery see her for potential debridement, for which apparently General surgery is not available until 02/23/2024. Allergies: Bactrim [sulfamethoxazole-trimethoprim], Penicillins, Sulfamethoxazole, Sulfanilamide, Trimethoprim, Aspirin, Avelox [moxifloxacin], Azithromycin, Cefzil [cefprozil], Cephalexin, Ciprofloxacin, Percocet [oxycodone-acetaminophen], and Adhesive Prior to Admission medications Medication Sig Start Date End Date Taking? Authorizing Provider acetaminophen-codeine (TYLENOL #3) 300-30 mg per tablet Take 1 tablet by mouth every 4 (four) hoursas needed for pain. 01/12/24 Yes Not In System Ref Prov albuterol (PROVENTIL HFA;VENTOLIN HFA) 90 mcg/actuation inhaler Inhale 2 puffs every 4 (four) hoursas needed for shortness of breath. Yes Not In System Ref Prov allopurinoL (ZYLOPRIM) 300 mg tablet Take 1 tablet (300 mg total) by mouth in the morning. Yes Not In System Ref Prov ascorbic acid, vitamin C, (ascorbic acid) 250 mg tablet,chewable Chew and swallow. Yes Not In System Ref Prov biotin 10,000 mcg capsule Take by mouth. Yes Not In System Ref Prov cinnamon bark (CINNAMON) 500 mg capsule Take 4 capsules (2,000 mg total) by mouth in the morning. Yes Not In System Ref Prov clopidogreL (PLAVIX) 75 mg tablet Take 1 tablet (75 mg total) by mouth in the morning. Yes Not In System Ref Prov cyclobenzaprine (FLEXERIL) 10 mg tablet Take 1 tablet (10 mg total) by mouth nightly. 11/03/17 Yes Not In System Ref Prov doxycycline (ADOXA) 100 MG tablet Take 1 tablet (100 mg total) by mouth in the morning and 1 tablet(100 mg total) before bedtime. Do all this for 14 days. 02/06/24 02/20/24 Yes Jayleen Nicole, LAB[employer] RO[address]-MEDICAL PSYCHOTHERAPIST dupilumab (DUPIXENT PEN) 300 mg/2 mL pen injector SUBQ injection pen Inject 2 mL (300 mg total) under the skin once. One injection subcutaneous every 14 days Yes Not In System Ref Prov fenofibrate (LOFIBRA) 160 mg tablet 10/06/17 Yes Not In System Ref Prov ferrous sulfate (IRON) 325 (65 FE) mg tablet Take 1 tablet (325 mg total) by mouth daily with breakfast. Yes Not In System Ref Prov fexofenadine (ORAL) 180 mg tablet Take 1 tablet (180 mg total) by mouth in the morning. Yes Not In System Ref Prov fluticasone (FLONASE) 50 mcg/actuation nasal spray 10/06/17 Yes Not In System Ref Prov furosemide (LASIX) 40 mg tablet Take 1 tablet (40 mg total) by mouth 2 (two) times a day before meals. 10/06/17 Yes Not In System Ref Prov HUMULIN R U-500, CONC, KWIKPEN injection Inject 150 Units of U-500 under the skin in the morning and 150 Units of U-500 at noon and 150 Units of U-500 in the evening and 150 Units of U-500 before bedtime. 150-190 units QID. 10/07/17 Yes Not In System Ref Prov HYDROcodone-acetaminophen (NORCO) 5-325 mg per tablet Take 1 tablet by mouth every 4 (four) hours as needed for pain. 01/18/24 Yes Not In System Ref Prov inulin (FIBER GUMMIES) 2 gram tablet,chewable Chew and swallow. Yes Not In System Ref Prov [id number] [id number] mg capsule Take by mouth. Yes Not In System Ref Prov Lactobacillus acidophilus (ACIDOPHILUS) capsule Take 1 capsule by mouth in the morning and 1 capsule at noon and 1 capsule in the evening. Take with meals. Yes Not In System Ref Prov levothyroxine (SYNTHROID, LEVOTHROID) 150 MCG tablet 10/07/17 Yes Not In System Ref Prov lisinopriL (PRINIVIL,ZESTRIL) 10 mg tablet Take 1 tablet (10 mg total) by mouth in the morning. 11/03/23 Yes Not In System Ref Prov LYRICA 75 mg capsule Take 1 capsule (75 mg total) by mouth 3 (three) times a day. 11/03/17 Yes Not InSystem Ref Prov metoprolol tartrate (LOPRESSOR) 50 mg tablet Take 1.5 tablets (75 mg total) by mouth in the morningand 1.5 tablets (75 mg total) before bedtime. Indications: high blood pressure. 10/06/17 Yes Not In System Ref Prov montelukast (SINGULAIR) 10 mg tablet 11/03/17 Yes Not In System Ref Prov multivitamin tablet,chewable Chew 2 capsules and swallow. Yes Not In System Ref Prov ondansetron ODT (ZOFRAN-ODT) 4 mg disintegrating tablet Dissolve 1 tablet (4 mg total) on tongue every 8 (eight) hours as needed for nausea. 11/25/17 Yes Not In System Ref Prov pantoprazole (PROTONIX) 40 mg EC tablet Take 1 tablet (40 mg total) by mouth in the morning and 1 tablet (40 mg total) before bedtime. Indications: gastroesophageal reflux disease. 11/03/17 Yes Not In System Ref Prov SYMBICORT 160-4.5 mcg/actuation inhaler Inhale 2 puffs in the morning and 2 puffs before bedtime. Indications: bronchospasm prevention with COPD. 10/06/17 Yes Not In System Ref Prov tiotropium bromide 1.25 mcg/actuation mist Inhale 2 puffs in the morning. Yes Not In System Ref Prov traMADoL (ULTRAM) 50 mg tablet Take 1 tablet (50 mg total) by mouth every 6 (six) hours as needed for pain. 12/23/23 Yes Not In System Ref Prov TRULICITY 4.5 mg/0.5 mL pen injector Inject 4.5 mg under the skin once a week. Sundays07/07/23 Yes Not In System Ref Prov vitamin B complex (SUPER B-50 COMPLEX PLUS ORAL) Take by mouth. Yes Not In System Ref Prov vitamin E, dl,tocopheryl acet, (VITAMIN E, DL, ACETATE,) 400 unit capsule Take 1 capsule (400 Unitstotal) by mouth in the morning. Yes Not In System Ref Prov cholecalciferol, vitamin D3, 2,000 units capsule Take 1 capsule (2,000 Units total) by mouth in themorning. Patient not taking: Reported on 02/20/2024 Not In System Ref Prov Code Status: Full Code Past Medical History: Patient has a past medical history of Anemia, Asthma, COPD (chronic obstructive pulmonary disease) ([facility] Diabetes type 2, controlled ([facility] GI problem, Herniation of right side of L4-L5 intervertebral disc, High cholesterol, Hypertension, Hypothyroidism, Nerve damage, Osteoarthritis, and Ovarian cancer ([facility] Past Surgical History: Patient has a past surgical history that includes Tonsillectomy; Appendectomy; Knee arthroscopy (Right); Cholecystectomy; Shoulder hardware removal; Nasal septum surgery; Discectomy; and Replacement total knee (Right). Family History: Patient's family history includes Alzheimer's disease in her father; Arthritis in her father and mother; Asthma in her mother; Diabetes in her father; Hyperlipidemia in her mother; Hypertension in her father and mother; Stroke in her mother. Social History: Patient reports that she has never smoked. She has never used smokeless tobacco. She reports that she does not currently use alcohol. She reports that she does not currently use drugs. Review of Systems Constitutional: Positive for fever. Negative for chills. HENT: Negative for ear pain and sore throat. Eyes: Negative for pain and visual disturbance. Respiratory: Negative for cough and shortness of breath. Cardiovascular: Negative for chest pain and palpitations. Gastrointestinal: Negative for abdominal pain and vomiting. Genitourinary: Negative for dysuria and hematuria. Musculoskeletal: Positive for arthralgias. Skin: Positive for wound. Negative for color change and rash. Neurological: Positive for weakness. Negative for seizures and syncope. All other systems reviewed and are negative. OBJECTIVE BP 113/51 Pulse 91 Temp 36.8 C (98.3 F) (Oral) Resp 20 Ht 157.5 cm (5' 2 ) Wt 125.8 kg (277 lb 4.8 oz) SpO2 90% BMI 50.72 kg/m Temp: [36.6 C (97.8 F)-37.1 C (98.8 F)] 36.8 C (98.3 F) Pulse: [91-111] 91 Resp: [20] 20 BP: (113-154)/(51-68) 113/51 SpO2: [90 %-98 %] 90 % O2 Device: None (Room air) Intake/Output Summary (Last 24 hours) at 02/21/2024 0905 Last data filed at 02/21/2024 0004 Gross per 24 hour Intake 753.26 ml Output -- Net 753.26 ml Physical Exam Constitutional: Appearance: She is well-developed. She is obese. She is ill-appearing. HENT: Head: Normocephalic and atraumatic. Nose: Nose normal. Eyes: Pupils: Pupils are equal, round, and reactive to light. Cardiovascular: Rate and Rhythm: Normal rate and regular rhythm. Heart sounds: Normal heart sounds. No murmur heard. Pulmonary: Effort: Pulmonary effort is normal. No respiratory distress. Breath sounds: Normal breath sounds. No wheezing. Abdominal: General: Bowel sounds are normal. Palpations: Abdomen is soft. Tenderness: There is no abdominal tenderness. Musculoskeletal: General: Normal range of motion. Cervical back: Neck supple. Lymphadenopathy: Cervical: No cervical adenopathy. Skin: General: Skin is warm and dry. Findings: Erythema and wound present. No rash. Comments: Wound to abd Neurological: Mental Status: She is alert and oriented to person, place, and time. Cranial Nerves: No cranial nerve deficit. Medications Scheduled: doxycycline, 100 mg, oral, BID heparin (porcine), 5,000 Units, subcutaneous, Q8H JONATHAN insulin lispro, 2-10 Units, subcutaneous, TID with meals insulin lispro, 2-8 Units, subcutaneous, Nightly pantoprazole, 40 mg, oral, QAM AC sodium hypochlorite, 1 Application, topical, BID vancomycin, , intravenous, Dosed by Levels Infusions: dextrose 5 % in water, 100 mL/hr sodium chloride 0.9 %, 20 mL/hr sodium chloride 0.9 %, 75 mL/hr, Last Rate: 75 mL/hr (02/21/24 0004) As Needed: acetaminophen dextrose dextrose 5 % in water dextrose 50 % in water (D50W) glucagon (human recombinant) magnesium sulfate magnesium sulfate ondansetron potassium chloride OR potassium chloride sennosides-docusate sodium sodium chloride sodium chloride sodium chloride 0.9 % Allergies: Bactrim [sulfamethoxazole-trimethoprim], Penicillins, Sulfamethoxazole, Sulfanilamide, Trimethoprim, Aspirin, Avelox [moxifloxacin], Azithromycin, Cefzil [cefprozil], Cephalexin, Ciprofloxacin, Percocet [oxycodone-acetaminophen], and Adhesive Labs Recent Results (from the past 24 hour(s)) Wound culture superficial includes gram stain Collection Time: 02/20/24 3:07 PM Specimen: Wound Swab RIGHT~LOWER~ABDOMEN~SUPERIOR Result Value Ref Range Specimen Notes SPECIMEN 1 Gram Stain Result 10 to 24 WHITE BLOOD CELLS/LPF Gram Stain Result 0 to 1 SQUAMOUS EPITHELIAL CELLS/LPF Gram Stain Result FEW GRAM POSITIVE COCCI Gram Stain Result RARE GRAM NEGATIVE RODS Culture PENDING CBC auto differential Collection Time: 02/20/24 3:52 PM Result Value Ref Range White Blood Cells 8.8 4.0 - 11.0 X10E9/L RBC count 3.79 (L) 3.80 - 5.20 X10E12/L Hemoglobin 11.9 11.7 - 15.5 g/dL Hematocrit 35.8 35 - 47 % MCV 94 80 - 100 fL MCH 31.4 27 - 34 pg MCHC 33.2 32 - 36 g/dL RDW 14.2 11.5 - 15.0 % Platelets 328 150 - 450 X10E9/L MPV 10.2 7 - 12 fL % neutrophils 69.8 % % lymphocytes 19.0 % % monocytes 8.5 % % eosinophils 2.1 % % Basophils 0.6 % Neutrophils Absolute (A) 6.2 1.5 - 6.6 X10E9/L Lymphocytes Absolute 1.7 1.0 - 3.5 X10E9/L Monocytes Absolute 0.8 0 - 0.9 X10E9/L Eosinophils Absolute 0.2 0.0 - 0.4 X10E9/L Basophils Absolute 0.1 0.0 - 0.2 X10E9/L Comprehensive metabolic panel Collection Time: 02/20/24 3:52 PM Result Value Ref Range Sodium 139 134 - 146 mmol/L Potassium, Bld 4.3 3.5 - 5.0 mmol/L Chloride 105 98 - 109 mmol/L CO2 24 22 - 32 mmol/L Anion gap 10 5 - 15 mmol/L BUN 50 (H) 5 - 23 mg/dL Creatinine 1.86 (H) 0.40 - 1.00 mg/dL Glucose 134 (H) 65 - 99 mg/dL Calcium 9.5 8.5 - 10.5 mg/dL Total Protein 8.4 (H) 6.0 - 8.0 g/dL Albumin 3.6 3.2 - 5.3 g/dL Alkaline Phosphatase 48 39 - 130 U/L AST 32 0 - 41 U/L ALT 21 0 - 31 U/L Total bilirubin 0.5 0.3 - 1.2 mg/dL eGFR (CKD-EPI)non-race dependent 32 (L) >59 ml/min/1.73sq.m C-reactive protein Collection Time: 02/20/24 3:52 PM Result Value Ref Range CRP 10.2 (H) 0.000 - 0.744 mg/dL Magnesium Collection Time: 02/20/24 3:52 PM Result Value Ref Range Magnesium 2.3 1.8 - 2.6 mg/dL Lactate w/ Reflex Collection Time: 02/20/24 3:52 PM Result Value Ref Range Lactate w/ Reflex 1.2 0.4 - 2.0 mmol/L B-type natriuretic peptide Collection Time: 02/20/24 3:52 PM Result Value Ref Range BNP 41 <100.0 pg/mL Wound culture superficial includes gram stain Collection Time: 02/20/24 5:10 PM Specimen: Wound Swab RIGHT~LOWER~ABDOMEN~INFERIOER Result Value Ref Range Specimen Notes SPECIMEN 2 Gram Stain Result >25 WHITE BLOOD CELLS/LPF Gram Stain Result 0 to 1 SQUAMOUS EPITHELIAL CELLS/LPF Gram Stain Result MODERATE GRAM POSITIVE COCCI Gram Stain Result FEW GRAM NEGATIVE RODS Gram Stain Result RARE YEAST Culture PENDING Bedside Glucose *Place/Obtain serum glucose if >500(>600 MRH) per glucometer. Collection Time: 02/20/24 9:51 PM Result Value Ref Range Bedside glucose 116 (H) 65 - 99 mg/dL Comprehensive metabolic panel Collection Time: 02/21/24 4:38 AM Result Value Ref Range Sodium 140 134 - 146 mmol/L Potassium, Bld 4.2 3.5 - 5.0 mmol/L Chloride 107 98 - 109 mmol/L CO2 23 22 - 32 mmol/L Anion gap 10 5 - 15 mmol/L BUN 45 (H) 5 - 23 mg/dL Creatinine 1.68 (H) 0.40 - 1.00 mg/dL Glucose 142 (H) 65 - 99 mg/dL Calcium 8.4 (L) 8.5 - 10.5 mg/dL Total Protein 6.5 6.0 - 8.0 g/dL Albumin 2.7 (L) 3.2 - 5.3 g/dL Alkaline Phosphatase 35 (L) 39 - 130 U/L AST 23 0 - 41 U/L ALT 17 0 - 31 U/L Total bilirubin 0.7 0.3 - 1.2 mg/dL eGFR (CKD-EPI)non-race dependent 36 (L) >59 ml/min/1.73sq.m Magnesium Collection Time: 02/21/24 4:38 AM Result Value Ref Range Magnesium 2.3 1.8 - 2.6 mg/dL CBC auto differential Collection Time: 02/21/24 4:38 AM Result Value Ref Range White Blood Cells 7.0 4.0 - 11.0 X10E9/L RBC count 3.00 (L) 3.80 - 5.20 X10E12/L Hemoglobin 9.4 (L) 11.7 - 15.5 g/dL Hematocrit 28.4 (L) 35 - 47 % MCV 95 80 - 100 fL MCH 31.2 27 - 34 pg MCHC 32.9 32 - 36 g/dL RDW 14.0 11.5 - 15.0 % Platelets 247 150 - 450 X10E9/L MPV 9.9 7 - 12 fL % neutrophils 57.0 % % lymphocytes 28.7 % % monocytes 10.8 % % eosinophils 3.0 % % Basophils 0.5 % Neutrophils Absolute (A) 4.0 1.5 - 6.6 X10E9/L Lymphocytes Absolute 2.0 1.0 - 3.5 X10E9/L Monocytes Absolute 0.8 0 - 0.9 X10E9/L Eosinophils Absolute 0.2 0.0 - 0.4 X10E9/L Basophils Absolute 0.0 0.0 - 0.2 X10E9/L Radiology No results found. HOSPITAL PROBLEM LIST Principal Problem: Wound infection Active Problems: Acquired hypothyroidism Diabetic neuropathy ([facility]) Hyperlipidemia Obesity, morbid ([facility] Supraventricular tachycardia ([facility]) Type 2 diabetes mellitus without complication ([facility]) Stage 2 chronic kidney disease ASSESSMENT & PLAN Cellulitis of abdomen -Infectious Disease, Wound Care and General surgery consulted -Currently on vancomycin, previously on doxycycline outpatient -Wound culture, blood culture pending -Mult allergies SVT/HTN -Follows with cardio -On lopressor and plavix -Holding lisinopril for acute kidney injury Acute kidney injury on CKD stage 2 -Stated her baseline GFR is approximately 45 -Continue gentle fluids Diabetes -Hemoglobin A1c 9.6 -ISS Hypothyroidism -check tsh -cont levothyroxine Asthma -on room air -cont home inhalers VTE -heparin sub q DC planning -from home Leticia Dong APRN-MEDICAL PSYCHOTHERAPIST 02/21/2024 9:05 AM [facility] 7AM-7PM (all facilities): EpicChat or page through Telebit. 7PM-7AM ([facility], [facility]): EpicLaurent or srikanth, [phone]. 7PM-7AM ([place], [place], [place], [place] and [facility] Rehab): EpicChat or page through Telebit. Leticia Dong APRN-MEDICAL PSYCHOTHERAPIST 02/21/24 1412 Physician Attestation I, Ghanshyam Mayberry MD, personally performed a face to face diagnostic evaluation on this patient. I have reviewed the note authored by the advance practice provider including history, review of systems,physical examination,medical decision making and agree with the assessment and plan as written. I have seen and evaluated the patient, I have repeated the ramos portions of the physical exam and concur with the IRINEO findings. I have reviewed all laboratory findings and imaging reports/films. I agree with the plan as noted. documented [facility] Progress note* Telehealth Note - SHAYLA Esposito - 02/24/2024 2:30 PM EDT Images from the original note were not included. Division of Infectious Diseases - Progress Note [facility] - TeleMedicine During Business Hours: Please use indidebt for communication. After Hours: Please call for our answering service. Patient name: Mary Jane Foy [facility] Patient Today's Date and Time: 02/24/2024, 2:30 PM Admission Date: 02/20/2024 Primary Care Physician: SHAYLA KRAFT Impression and Recommendations:: Open abdominal wall wound Abdominal wall infection The patient presents with two chronic ulcers on the right lower abdomen, [facility] She has been following with Wound Care now for several weeks. There was concern for increasing erythema and drainage with a yellowish exudate from the wounds. Wound care consult in potential consideration for surgical debridement is planned for later this afternoon. She has been on doxycycline and fluconazole as an outpatient. 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 Cont. Vanco for gram positive coverage. For the achromobacter , start meropenem. Follow sensitives. Unlikely to have many alternatives given her allergy profile. Start diflucan for the yeast. Surgery today for debridement. Follow cultures Subjective Interval History:: Pt seen at bedside via [place] connect. No fevers or chills. No n/v/d. Wound pain is stable. Objective Physical Examination : BP 116/48 Pulse 79 Temp 36.9 C (98.5 F) (Oral) Resp 16 Ht 157.5 cm (5' 2 ) Wt 124.2 kg (273 lb 12.8 oz) SpO2 94% BMI 50.08 kg/m Temperature Range: Temp: 36.9 C (98.5 F) Temp Av.7 C (98.1 F) Min: 36.5 C (97.7 F) Max: 36.9 C(98.5 F) *Pt seen via [place] connect. Portions of the exam pulled from hospitalist documentation and via assessment from the RN at bedside* Constitutional: awake and alert. Cardiovascular: S1, S2 Respiratory: clear non labored. Gastrointestinal/Abdomen: abdominal wound pictured below Musculoskeletal/Extremities: No cyanosis, clubbing, edema, or effusions. Skin: warm, dry, no rashes or lesions noted Neurologic: Bulk and tone are normal. No atrophy is noted. Laboratory data: I have independently reviewed the following labs: Results from last 7 days Lab Units 02/24/2443002/23/2442602/22/24420 WBC X10E9/L 6.4 6.4 7.9 HEMOGLOBIN g/dL 8.8* 8.8* 9.2* HEMATOCRIT % 26.4* 26.5* 27.6* MCV fL 94 94 94 PLATELETS X10E9/L 224 222 253 NEUTROS ABS X10E9/L 3.7 3.5 4.7 LYMPHS ABS AUTO X10E9/L 1.9 2.0 2.1 MONOS ABS AUTO X10E9/L 0.6 0.6 0.7 EOS ABS AUTO X10E9/L 0.3 0.2 0.3 BASOS ABS AUTO X10E9/L 0.1 0.1 0.0 Results from last 7 days Lab Units 02/24/2443002/23/2442602/22/24 042 SODIUM mmol/L 133* 135 138 POTASSIUM mmol/L 4.7 4.5 4.3 CHLORIDE mmol/L 102 104 108 CO2 mmol/L 21* 23 21* BUN mg/dL 45* 39* 38* CREATININE mg/dL 1.36* 1.48* 1.47* CALCIUM mg/dL 8.4* 8.4* 8.5 ALBUMIN g/dL 2.6* 2.5* 2.6* ALK PHOS U/L 38* 36* 37* ALT U/L 14 15 16 AST U/L 16 15 23 Results from last 7 days Lab Units 02/21/2443702/20/24 1552 CRP mg/dL -- 10.2* FERRITIN ng/mL 568* -- Results from last 7 days Lab Units 02/21/24 0438 HEMOGLOBIN A1C % 9.6* Invalid input(s): BILIRUBINU , BILIRUBINNU Imaging Studies: Cultures: Microbiology Results Procedure Component Value Units Date/Time Blood culture #2 [[id number]] Collected: 02/20/241917 Specimen: Blood Updated: 02/23/242205 Culture NO GROWTH 3 DAYS Blood culture #1 [[id number]] Collected: 02/20/241909 Specimen: Blood Updated: 02/23/242204 Culture NO GROWTH 3 DAYS Wound culture superficial includes gram stain [[id number]] (Abnormal) Collected: 02/20/24 1710 Specimen: Wound Swab Updated: 02/24/24 1225 Specimen Notes SPECIMEN 2 Gram Stain Result >25 WHITE BLOOD CELLS/LPF 0 to 1 SQUAMOUS EPITHELIAL CELLS/LPF MODERATE GRAM POSITIVE COCCI FEW GRAM NEGATIVE RODS RARE YEAST Culture MANY ACHROMOBACTER SPECIES CULTURE IN PROGRESS Wound culture superficial includes gram stain [[id number]] Collected: 02/20/24 1507 Specimen: Wound Swab Updated: 02/22/24 1025 Specimen Notes SPECIMEN 1 Gram Stain Result 10 to 24 WHITE BLOOD CELLS/LPF 0 to 1 SQUAMOUS EPITHELIAL CELLS/LPF FEW GRAM POSITIVE COCCI RARE GRAM NEGATIVE RODS Culture MANY MIXED GRAM POSITIVE AND GRAM NEGATIVE ORGANISMS NO STAPHYLOCOCCUS AUREUS ISOLATED NO PSEUDOMONAS AERUGINOSA ISOLATED NO BETA HEMOLYTIC STREPTOCOCCI ISOLATED Medications: allopurinoL, 300 mg, oral, Daily cyclobenzaprine, 10 mg, oral, Nightly fluconazole, 200 mg, oral, Daily fluticasone furoate-vilanteroL, 1 puff, inhalation, Daily heparin (porcine), 5,000 Units, subcutaneous, Q8H JONATHAN insulin lispro, 3-18 Units, subcutaneous, With meals and nightly levothyroxine, 150 mcg, oral, Daily meropenem, 1,000 mg, intravenous, Q12H metoprolol tartrate, 75 mg, oral, BID montelukast, 10 mg, oral, Nightly pantoprazole, 40 mg, oral, QAM AC pregabalin, 75 mg, oral, TID sodium hypochlorite, 1 Application, topical, BID vancomycin, 1,500 mg, intravenous, Q24H Thank you for allowing us to participate in the care of this patient. Please call with questions. Erin Chaudhari DNP, CNP From 7AM-7PM: From 7AM-7PM: Please use indidebt for communication From 7PM-7AM: Please call for our answering service. Tele-Infectious DiseaseTelemedicine Consult Note Consent Statement: I discussed risks, benefits, and alternatives of a real-time synchronous audiovisual consultation with the patient (and any accompanying persons) including the risks that the patient's personal health details and medical records will be discussed over real-time, synchronous, interactive video/audio/telecommunication technology, the visit will not be recorded without the express consent of both the provider and the patient, and that there are some limitations compared to [id number] evaluations. We elected to proceed. SHAYLA Esposito 02/24/[address] [facility]09-24-2024 Plan of care note* Plan of Care - SHAYLA Rai - 02/24/2024 1:15 PM EDT Wound care consulted. Patient is known to wound care clinic. Continue dakins dressings as ordered. Awaiting OR for debridement then will reevaluate and update wound plan of care as indicated. SHAYLA Rai 02/24/[address] [facility]09-24-2024 Plan of care note* Plan of Care - Lily Gomez RN - 02/24/2024 9:00 AM EDT Problem: Pain Goal: Patient goal is pain score less than 4, able to rest, and participant in treatment plan as appropriate Description: INTERVENTIONS: 1. Encourage patient or legal outside sales representative insurance to report early pain and ask for pain medicine when needed 2. Assess pain using appropriate pain scale and include the scale used when documenting 3. Administer analgesics based on type and severity of pain and evaluate response within appropriate time frame 4. Implement non-pharmacological measures as appropriate and evaluate response 5. Consider cultural and social influences on pain and pain management 6. Notify LIP if interventions ineffective or patient reports new pain 7. Monitor vital signs including pulse ox, end-tidal CO2 based on pain intervention 8. Reassess pain per policy 9. Teach patient or legal outside sales representative insurance interventions for comforting Outcome: Progressing Note: Evaluation of progress towards goal: Pain assessed and treated accordingly. Problem: Safety Goal: Patient will be injury free during hospitalization Description: INTERVENTIONS: 1. Assess patient's risk for falls and implement fall prevention plan of care per policy 2. Provide and maintain a safe environment 3. Proper use of double Identifiers 4. Medication administration using the 5 rights 5. Hand hygiene 6. Specimens are labeled at the bedside 7. Instruct patient/ patient outside sales representative insurance about use of safety devices 8. Include patient/ patient outside sales representative insurance in decisions related to safety Outcome: Progressing Note: Evaluation of progress towards goal: PT is free of falls, hourly rounding is completed, area is kept clear. Problem: Infection Goal: Absence of infection during hospitalization Description: Interventions: 1. Assess and monitor for signs and symptoms of infection 2. Monitor lab/diagnostic results 3. Monitor all insertion sites i.e., indwelling lines, tubes and drains 4. Monitor endotracheal (as able) and nasal secretions for changes in amount and color 5. Administer medications as ordered 6. Instruct and encourage patient and family to use good hand hygiene technique 7. Identify and instruct patient/patient outside sales representative insurance in use of appropriate isolation precautionsfor identified infection/symptoms 8. Provide and discuss with patient/patient outside sales representative insurance on educational MDRO sheet 9. Encourage and monitor nutritional status daily and consult retort feeder ground bone if indicated 10. Implement neutropenic guidelines as needed 11. Review exposure to history of communicable disease and recent travel history on admission 12. Encourage annual influenza vaccine 13. Encourage pneumonia vaccine Outcome: Progressing Note: Evaluation of progress towards goal: Pt assessed and monitored for signs and symptoms of infection, lab and diagnostic results monitored as needed, administer medications as needed. Problem: Glucose Imbalance Goal: Clinical indication of glucose balance is achieved Description: Patient's goal is: INTERVENTIONS 1. Monitor blood glucose levels as ordered 2. Administer medications as ordered 3. Notify physician of ineffective treatment plan Outcome: Progressing Note: Evaluation of progress towards goal: Glucose to be monitored and treated accordingly [facility] [place] [id number] Progress note* Query Response - Ghanshyam Mayberry MD - 02/24/2024 8:35 AM EDT Query Response Note CDI QUERY TEXT: Diabetic Associated Manifestations [id number] Disclaimer: By submitting this query, we are merely seeking further clarification of documentation to accurately reflect all conditions that you are monitoring, evaluating, treating or that extend the hospitalization or utilize additional resources of care. Please utilize your independent clinical judgment when addressing the question(s) below. Dear Dr. Mayberry, The patient is admitted with cellulitis of abdomen. PPH H&P includes, ??Patient stated approximately 3-4 weeks ago got bit twice by a spider, woundhas continued to worsen? Type 2 diabetes mellitus? Hemoglobin A1c 9.6?? A cause and effect relationship may not be assumed and must be documented by a provider. Please clarify the relationship, if any, between abdominal wall cellulitis and diabetes, such as: >> Abdominal wall cellulitis associated/due to with diabetes >> Abdominal wall cellulitis and diabetes are unrelated to each other >> Other, please specify Please respond on this query and in the progress notes. Thank you, VICKY Faustin, RN [facility] Health Information Management Email: [email or web address] If you have any questions or concerns, regarding this query, please call or send them to me via e-mail. The patient's Clinical Indicators include: As above. CDI RESPONSE TEXT: Abdominal wall cellulitis associated/due to with diabetes Query created by: Florina Lewis on 02/24/2024 8:10 AM Electronically signed by: Ghanshyam Mayberry MD 02/24/2024 8:33 AM [facility] [id number] Plan of care note* Plan of Care - Yandy Crooks RN - 02/24/2024 12:35 AM EDT Problem: Pain Goal: Patient goal is pain score less than 4, able to rest, and participant in treatment plan as appropriate Description: INTERVENTIONS: 1. Encourage patient or legal outside sales representative insurance to report early pain and ask for pain medicine when needed 2. Assess pain using appropriate pain scale and include the scale used when documenting 3. Administer analgesics based on type and severity of pain and evaluate response within appropriate time frame 4. Implement non-pharmacological measures as appropriate and evaluate response 5. Consider cultural and social influences on pain and pain management 6. Notify LIP if interventions ineffective or patient reports new pain 7. Monitor vital signs including pulse ox, end-tidal CO2 based on pain intervention 8. Reassess pain per policy 9. Teach patient or legal outside sales representative insurance interventions for comforting Outcome: Progressing Note: Evaluation of progress towards goal: pain controlled with tylenol and scheduled lyrica [facility]09-23-2024 Plan of care note* Plan of Care - Theresa Melendez RN - 02/23/2024 4:07 PM EDT Problem: Pain Goal: Patient goal is pain score less than 4, able to rest, and participant in treatment plan as appropriate Description: INTERVENTIONS: 1. Encourage patient or legal outside sales representative insurance to report early pain and ask for pain medicine when needed 2. Assess pain using appropriate pain scale and include the scale used when documenting 3. Administer analgesics based on type and severity of pain and evaluate response within appropriate time frame 4. Implement non-pharmacological measures as appropriate and evaluate response 5. Consider cultural and social influences on pain and pain management 6. Notify LIP if interventions ineffective or patient reports new pain 7. Monitor vital signs including pulse ox, end-tidal CO2 based on pain intervention 8. Reassess pain per policy 9. Teach patient or legal outside sales representative insurance interventions for comforting Outcome: Progressing Note: Evaluation of progress towards goal: Ongoing Problem: Safety Goal: Patient will be injury free during hospitalization Description: INTERVENTIONS: 1. Assess patient's risk for falls and implement fall prevention plan of care per policy 2. Provide and maintain a safe environment 3. Proper use of double Identifiers 4. Medication administration using the 5 rights 5. Hand hygiene 6. Specimens are labeled at the bedside 7. Instruct patient/ patient outside sales representative insurance about use of safety devices 8. Include patient/ patient outside sales representative insurance in decisions related to safety Outcome: Progressing Note: Evaluation of progress towards goal: Ongoing Problem: Infection Goal: Absence of infection during hospitalization Description: Interventions: 1. Assess and monitor for signs and symptoms of infection 2. Monitor lab/diagnostic results 3. Monitor all insertion sites i.e., indwelling lines, tubes and drains 4. Monitor endotracheal (as able) and nasal secretions for changes in amount and color 5. Administer medications as ordered 6. Instruct and encourage patient and family to use good hand hygiene technique 7. Identify and instruct patient/patient outside sales representative insurance in use of appropriate isolation precautionsfor identified infection/symptoms 8. Provide and discuss with patient/patient outside sales representative insurance on educational MDRO sheet 9. Encourage and monitor nutritional status daily and consult retort feeder ground bone if indicated 10. Implement neutropenic guidelines as needed 11. Review exposure to history of communicable disease and recent travel history on admission 12. Encourage annual influenza vaccine 13. Encourage pneumonia vaccine Outcome: Progressing Note: Evaluation of progress towards goal: Ongoing Problem: Knowledge Deficit Goal: Patient/patient outside sales representative insurance demonstrates understanding of disease process, treatment plan,medications, and discharge instructions Description: INTERVENTIONS 1. Complete learning assessment and assess knowledge base 2. Provide teaching at level of understanding 3. Provide teaching via preferred learning method(s) Outcome: Progressing Note: Evaluation of progress towards goal: Ongoing Problem: Discharge Planning Goal: Discharge to post-acute care, other facility, or home with appropriate resources Description: Patient's goal is: INTERVENTIONS 1. Conduct assessment to determine patient/family and health care team treatment goals, and need for post-acute services based on payer coverage, community resources, and patient preferences, and barriers to discharge 2. Coordinate with Social work, Care Navigation, and Utilization Review to arrange appropriate level of services according to patient's needs based on patient preference and payer coverage in collaboration with the physician and health care team 3. Address psychosocial, clinical, and financial barriers to discharge as identified in assessment in conjunction with the patient/family and health care team 4. Consult appropriate ancillary services (i.e.. PT/OT/ST, etc) as needed 5. Communicate with and update the patient/family, physician, and health care team regarding progress on the discharge plan 6. Identify discharge learning needs (meds, wound care, etc). 7. Arrange for needed discharge transportation as appropriate Outcome: Progressing Note: Evaluation of progress towards goal: Ongoing Problem: Inadequate Airway Clearance Goal: Patient will maintain patent airway Description: INTERVENTIONS 1. Assess and monitor breath sounds, cough and sputum (if present) 2. Monitor respiratory rate and oxygen saturation 3. Collaborate with respiratory therapy to administer medication, oxygen, and suitable airway clearance techniques as ordered 4. Position patient for maximum ventilatory efficiency; elevate head of bed at least 30 degrees if appropriate 5. Provide adequate fluid intake to liquify secretions if appropriate 6. Suction secretions as indicated to maintain patent airway 7. Instruct patient to turn, cough, and deep breathe; encourage incentive spirometer if indicated Outcome: Progressing Note: Evaluation of progress towards goal: Ongoing Problem: Inadequate Breathing Pattern Goal: Patient will achieve/maintain normal respiratory rate/effort Description: Patient's goal is: INTERVENTIONS 1. Assess and monitor respiratory rate, effort, breathing pattern, and oxygenation 2. Monitor patient for restlessness, anxiety, air hunger 3. Assess physical activity tolerance 4. Assess tobacco history; ask, advise, and refer as appropriate 5. Collaborate with interdisciplinary team and initiate plans/interventions as needed Outcome: Progressing Note: Evaluation of progress towards goal: Ongoing Goal: Patient will maintain effective ventilation Description: Patient's goal is: INTERVENTIONS 1. Assess and monitor vital signs, respiratory status (to include respiratory rate, depth, effort, and breath sounds), oxygen saturation, oral mucosa, tongue, pain, and labs (ABGs). 2. Collaborate with interdisciplinary team and initiate plans and interventions as needed 3. Oxygen therapy as indicated 4. Position patient for maximum ventilatory efficiency 5. Instruct patient to turn, cough, and deep breathe; encourage incentive spirometer if indicated 6. Plan activities to conserve energy 7. Encourage ambulation/activity per patient's tolerance 8. Collaborate with patient/RT to administer medications/treatments 9. Monitor lab/diagnostic results Outcome: Progressing Note: Evaluation of progress towards goal: Ongoing Problem: Anxiety Goal: Anxiety is at manageable level Description: Patient's goal is: INTERVENTIONS 1. Assess and monitor patient's anxiety level 2. Monitor for signs and symptoms of anxiety both physical and emotional (heart palpitations, chestpain, shortness of breath, headaches, nausea, feeling jumpy, restlessness, irritable, apprehensive) 3. Reorient/orient patient to unit/surroundings 4. Explain treatment plan 5. Explain tests/procedures prior to initiation 6. Encourage participation in care 7. Encourage verbalization of concerns/fears 8. Assess coping mechanisms 9. Assist in developing anxiety-reducing skills 10. Administer complimentary therapies 11. Manage patient's environment 12. Limit or eliminate stimulants such as caffeine and nicotine 13. Collaborate with ancillary departments 14. Include patient/patient outside sales representative insurance in decisions related to anxiety Outcome: Progressing Note: Evaluation of progress towards goal: Ongoing Problem: Activity Intolerance/Impaired Mobility Goal: Mobility/activity is maintained at optimum level for patient Description: Patient's goal is: INTERVENTIONS 1. Assess and monitor patient barriers to mobility and need for assistive/adaptive devices 2. Assess patient's emotional response to limitations 3. Collaborate with interdisciplinary teams and initiate plans and interventions as ordered 4. Encourage independent activity per tolerance 5. Maintain proper body alignment 6. Perform active/passive ROM as tolerated/ordered 7. Coordinate activities to conserve energy 8. Reposition patient 9. Ensure adequate rest/sleep time Outcome: Progressing Note: Evaluation of progress towards goal: Ongoing Problem: Inadequate Coping Goal: Demonstrates and verbalizes ability to cope effectively Description: Patient's goal is: INTERVENTIONS 1. Patient is able to verbalize feelings related to emotional state 2. Encourage verbalization of feelings, perceptions, fears, stressors, loss of loved ones 3. Encourage verbalization of problems out of their control 4. Encourage participation in care and self management 5. Inform patient of all treatment/care prior to providing care 6. Collaborate with pastoral/spiritual care, transition social worker, mental health counselor as needed. 7. Instruct patient on diversional activities such as physical activity, distraction, and deep breathing exercises to assist with coping 8. Involve patient's outside sales representative insurance in care Outcome: Progressing Note: Evaluation of progress towards goal: Ongoing Problem: Glucose Imbalance Goal: Clinical indication of glucose balance is achieved Description: Patient's goal is: INTERVENTIONS 1. Monitor blood glucose levels as ordered 2. Administer medications as ordered 3. Notify physician of ineffective treatment plan Outcome: Progressing Note: Evaluation of progress towards goal: Ongoing Goal: Patient's discharge needs are met Description: Patient's goal is: INTERVENTIONS 1. Assess patient for self-management skills 2. Encourage participation in diabetes management 3. Identify potential discharge barriers on admission and throughout hospital stay 4. Involve patient/S.O. in discharge planning process 5. Communicate referral to heating plant superintendent as appropriate 6. Communicate referral to retort feeder ground bone as appropriate 7. Collaborate with case management/transition social worker for discharge needs Outcome: Progressing Note: Evaluation of progress towards goal: Ongoing Problem: Moderate - High Risk Fall Score Description: Smith Fall Score of =/> 25 or indicated by [facility] Assessment Goal: Patient should be free from fall Description: Interventions: 1. [place] to environment 2. Hourly rounds addressing the 4 P's (Pain, Positioning, Possessions, Potty) 3. Clear area of hazards (spills, clutter, electrical cords, unnecessary equipment) 4. Place equipment (bed & TV controls, call light, phone, urinal) within reach 5. Encourage patient to wear glasses and hearing aides as appropriate 6. Maintain bed in lowest position 7. Lock wheels on bed/wheelchair 8. Provide adequate lighting, including night light 9. Assess need for additional bedding, food/fluids, pain med's prior to sleep/routinely 10. Provide gripper slippers or personal non-skid footwear 11. Teach patient and patient outside sales representative insurance to maintain environment for safety and engage in all aspects of fall prevention program 12. Remind patient to call for help before getting out of bed 13. Initiate bed/chair/exit alarms supportive devices as appropriate, (chair wedge, no-skid floor mat, raised edge mattress, hip protectors) 14. Locate patient bed assignment for optimal visualization 15. Evaluate and identify Safe Patient Handling Equipment needs 16. Provide supervision when out of bed or chair 17. Utilize gait belt as needed to assist with ambulation 18. Place adaptive equipment (cane, walker) within reach 19. Request patient outside sales representative insurance bring adaptive equipment/mobility aids from home or obtain and provide as needed 20. Consult pharmacy regarding effects of med's affecting mobility, cognition, and alternatives 21. Obtain physician order for PT if risk factors associated with mobility are present 22. Obtain physician order for OT as appropriate 23. Utilize diversional activities 24. Educate patient and patient outside sales representative insurance how to maintain a safe environment during visitationtimes (notify nurse prior to leaving bedside) 25. Consider appropriateness of medical or non-medical cost consultant 26. Set up voiding schedule as appropriate (every 2 hours) Outcome: Progressing Note: Evaluation of progress towards goal: Ongoing Problem: Potential for Compromised Skin Integrity Goal: Skin integrity is maintained or improved Description: Patient's goal is: INTERVENTIONS 1. Perform initial skin assessment on admission and as needed 2. Turn patient every 2 hours and PRN 3. Relieve pressure to bony prominences 4. Avoid shearing 5. Keep skin clean and dry 6. Alternate a full bath with partial baths for elderly 7. Apply lotion/moisturizer on skin 8. Monitor patient's hygiene practices 9. Float heels 10. Collaborate with interdisciplinary team and initiate plans and interventions as needed Outcome: Progressing Note: Evaluation of progress towards goal: Ongoing Goal: Patient's nutritional intake is adequate Description: Patient's goal is: INTERVENTIONS 1. Assess and monitor food intake and supplements, patient food preferences, nausea, vomiting, labs, oral cavity (gums, teeth, tongue, mucosa), proper denture fit, and cultural beliefs 2. Monitor for signs of hypoglycemia and hyperglycemia 3. Collaborate with interdisciplinary team and initiate plan and interventions as ordered 4. Monitor patient's weight 5. Assist patient with meals/food selection 6. Assist patient with eating 7. Allow adequate time for meals 8. Provide pleasant environment during mealtime 9. Increase social contact during mealtimes 10. Plan activities to conserve energy 11. Encourage/perform oral hygiene as appropriate 12. Encourage patient to take dietary supplement as ordered 13. Collaborate with clinical retort feeder ground bone 14. Include patient/ patient's outside sales representative insurance in decisions related to nutrition Outcome: Progressing Note: Evaluation of progress towards goal: Ongoing Problem: Urinary Incontinence Goal: Perineal skin integrity is maintained or improved Description: INTERVENTIONS 1. Assess genitourinary system, perineal skin, labs (urinalysis), and history of incontinence to include past management, aggravating, and alleviating factors 2. Keep skin clean and dry 3. Apply skin protectant 4. Develop skin care regimen 5. Provide privacy when changing patients incontinence device to maintain their dignity 6. Consider placing an indwelling catheter 7. Collaborate with interdisciplinary team and initiate plans and interventions as needed Outcome: Progressing Note: Evaluation of progress towards goal: Ongoing [facility]09-23-2024 Consult note* Balaji Amaya MD - 02/23/2024 1:29 PM EDT Images from the original note were not included. Chief Complaint: Wound History of Present Illness Mary Jane Suarez is a 53 y.o. female who presented to emergency department on as advised by the wound care clinic. Approximately 3-4 weeks ago she was bit twice by a spider in the right lower abdomen. Initially she was treated as an outpatient with oral antibiotics, however, the wound continued to worsen and she was having increased pain, purulent drainage and fevers. Wound cultures pending. Review of Systems Constitutional: Negative for fever and unexpected weight change. HENT: Negative for trouble swallowing. Respiratory: Negative for shortness of breath. Cardiovascular: Negative for chest pain. Gastrointestinal: Negative for nausea, vomiting, abdominal pain, diarrhea, constipation, blood in stool and black tarry stool. Genitourinary: Negative for dysuria and difficulty urinating. Musculoskeletal: Negative for gait problem. Skin: Positive for wound. Negative for rash. Neurological: Negative for dizziness, weakness and light-headedness. Hematological: Does not bruise/bleed easily. Psychiatric/Behavioral: Negative for confusion. Past Medical History: Diagnosis Date Anemia Asthma COPD (chronic obstructive pulmonary disease[place] Diabetes type 2, controlled ([facility]) GI problem Herniation of right side of L4-L5 intervertebral disc High cholesterol Hypertension Hypothyroidism Nerve damage in feet and legs Osteoarthritis Ovarian cancer [place]) Past Surgical History: Procedure Laterality Date APPENDECTOMY CHOLECYSTECTOMY DISCECTOMY KNEE ARTHROSCOPY Right NASAL SEPTUM SURGERY REPLACEMENT TOTAL KNEE Right SHOULDER HARDWARE REMOVAL TONSILLECTOMY Allergies Allergen Reactions Bactrim [Sulfamethoxazole-Trimethoprim] Anaphylaxis Penicillins Anaphylaxis Sulfamethoxazole Anaphylaxis and Swelling Sulfanilamide Anaphylaxis Trimethoprim Anaphylaxis Aspirin Vomiting Avelox [Moxifloxacin] Hives Azithromycin Hives Cefzil [Cefprozil] Hives Cephalexin Hives Ciprofloxacin Hives Percocet [Oxycodone-Acetaminophen] Vomiting Soy Adhesive Rash Current Facility-Administered Medications: acetaminophen (TYLENOL) tablet 650 mg, 650 mg, oral, Q4H PRN, Leticia Dong APRN-JOSE, 650 mg at 02/20/24 2328 allopurinoL (ZYLOPRIM) tablet 300 mg, 300 mg, oral, Daily, Leticia Dong APRN- MEDICAL PSYCHOTHERAPIST, 300 mg at 02/23/24 0810 cyclobenzaprine (FLEXERIL) tablet 10 mg, 10 mg, oral, Nightly, Leticia Dong APRN-JOSE, 10 mg at 02/22/24 2209 dextrose (GLUTOSE) 40 % gel 15 g, 15 g, oral, PRN, SHAYLA Stephens dextrose 5 % (D5W) infusion, 100 mL/hr, intravenous, Continuous PRN, SHAYLA Stephens dextrose 50 % in water (D50W) 50% solution 25 mL, 25 mL, intravenous, PRN, Leticia Dong APRN-JOSE fluticasone furoate-vilanteroL (BREO ELLIPTA) 200-25 mcg/dose inhaler 1 puff, 1 puff, inhalation, Daily, SHAYLA Stephens, 1 puff at 02/23/24 1151 glucagon HCL injection 1 mg, 1 mg, intramuscular, PRN, Leticia Dong APRN-JOSE [START ON 02/24/2024] heparin (porcine) injection 5,000 Units, 5,000 Units, subcutaneous, Q8H JONATHAN, SHAYLA Pinedo HYDROcodone-acetaminophen (NORCO) 5-325 mg per tablet 1 tablet, 1 tablet, oral, Q4H PRN, Leticia Dong APRN-JOSE, 1 tablet at 02/23/24 0935 insulin lispro (HumaLOG) injection 2-10 Units, 2-10 Units, subcutaneous, TID with meals, SHAYLA Pinedo, 8 Units at 02/23/24 1135 insulin lispro (HumaLOG) injection 2-8 Units, 2-8 Units, subcutaneous, Nightly, Manolo Padilla APRN-JOSE levothyroxine (SYNTHROID, LEVOTHROID) tablet 150 mcg, 150 mcg, oral, Daily, Leticia Dong APRN-MEDICAL PSYCHOTHERAPIST, 150 mcg at 02/23/24 0512 magnesium sulfate IVPB 2000 mg/50 mL in iso-osmotic water (40 mg/mL premix), 2,000 mg, intravenous,PRN, Leticia Dong APRN-JOSE magnesium sulfate IVPB 4000 mg/100 mL in iso-osmotic water (40 mg/mL premix), 4,000 mg, intravenous, PRN, Leticia Dong APRN-MEDICAL PSYCHOTHERAPIST metoprolol tartrate (LOPRESSOR) tablet 75 mg, 75 mg, oral, BID, Leticia Dong APRN-JOSE, 75 mg at 02/23/24 0810 montelukast (SINGULAIR) tablet 10 mg, 10 mg, oral, Nightly, Leticia Dong APRN- JOSE, 10 mg at 02/22/24 2209 morphine injection 2 mg, 2 mg, intravenous, Q4H PRN, Leticia Dong APRN-MEDICAL PSYCHOTHERAPIST ondansetron (PF) (ZOFRAN) injection 4 mg, 4 mg, intravenous, Q6H PRN, Leticia Dong APRN-JOSE pantoprazole (PROTONIX) EC tablet 40 mg, 40 mg, oral, QAM AC, Leticia Dong APRN-MEDICAL PSYCHOTHERAPIST, 40 mg at 02/23/24 0512 potassium chloride (KLOR-CON M 20) CR tablet 30-50 mEq, 30-50 mEq, oral, PRN OR potassium chloride (KAYCIEL) 20 mEq/15 mL solution 30-50 mEq, 30-50 mEq, oral, PRN, Leticia Dong APRN-MEDICAL PSYCHOTHERAPIST pregabalin (LYRICA) capsule 75 mg, 75 mg, oral, TID, Leticia Dong APRN-JOSE, 75 mg at 02/23/24 1300 sennosides-docusate sodium (SENOKOT-S) 8.6-50 mg 1 tablet, 1 tablet, oral, Q12H PRN, Leticia Dong APRN-JOSE sodium chloride 0.9 % flush 3 mL, 3 mL, intravenous, PRN, Antonio Bunchkalilibeth, DO sodium chloride 0.9 % flush bag, 25 mL, intravenous, PRN, Leticia Dong APRN-JOSE sodium chloride 0.9 % infusion, 20 mL/hr, intravenous, Continuous PRN, Leticia Dong APRN-JOSE sodium hypochlorite (DAKIN'S 1/4 STRENGTH) 0.125 % external solution 1 Application, 1 Application, topical, BID, SHAYLA Rai vancomycin (VANCOCIN) 1,500 mg in sodium chloride 0.9 % 500 mL IVPB, 1,500 mg, intravenous, Q36H, Leticia Dogn APRN-JOSE, Stopped at 02/22/24 1015 Social History Socioeconomic History Marital status: Single Spouse name: Not on file Number of children: Not on file Years of education: Not on file Highest education level: Not on file Occupational History Not on file Tobacco Use Smoking status: Never Smokeless tobacco: Never Vaping Use Vaping status: Never Used Substance and Sexual Activity Alcohol use: Not Currently Drug use: Not Currently Sexual activity: Defer Other Topics Concern Not on file Social History Narrative Not on file Social Determinants of Health Financial Resource Strain: Not on file Food Insecurity: No Food Insecurity (02/20/2024) Hunger Screening Food Insecurity - Worry: Never True Food Insecurity - Inability: Never True Transportation Needs: No Transportation Needs (02/20/2024) PRAPARE - Transportation Lack of Transportation (Medical): No Lack of Transportation (Non-Medical): No Physical Activity: Not on file Stress: Not on file Social Connections: Not on file Interpersonal Safety: Not At Risk (02/20/2024) Humiliation, Afraid, Rape, and Kick questionnaire Fear of Current or Ex-Partner: No Emotionally Abused: No Physically Abused: No Sexually Abused: No Housing Instability: Low Risk (02/20/2024) Housing Instability Housing Instability: No Family History Problem Relation Age of Onset Arthritis Mother Asthma Mother Hypertension Mother Hyperlipidemia Mother Stroke Mother Arthritis Father Diabetes Father Hypertension Father Alzheimer's disease Father Objective Physical Exam Constitutional: General: She is not in acute distress. Appearance: Normal appearance. She is not ill-appearing. HENT: Head: Normocephalic and atraumatic. Mouth/Throat: Mouth: Mucous membranes are moist. Eyes: Pupils: Pupils are equal, round, and reactive to light. Cardiovascular: Rate and Rhythm: Normal rate. Pulmonary: Effort: Pulmonary effort is normal. No respiratory distress. Abdominal: General: There is no distension. Palpations: Abdomen is soft. Tenderness: There is abdominal tenderness in the right lower quadrant. Comments: Right lower quadrant wound with yellow drainage Musculoskeletal: General: Normal range of motion. Skin: General: Skin is warm and dry. Neurological: Mental Status: She is alert and oriented to person, place, and time. Mental status is at baseline. Vital Signs: Blood pressure 125/51, pulse 77, temperature 36.7 C (98 F), temperature source Oral, resp. rate 16, height 157.5 cm (5' 2 ), weight 124.2 kg (273 lb 12.8 oz), SpO2 92%. Respiratory Source: O2 Device: None (Room air) Admission Weight: Weight: 118.4 kg (261 lb) Labs Lab Results Component Value Date WBC 6.4 02/23/2024 HGB 8.8 (L) 02/23/2024 HCT 26.5 (L) 02/23/2024 MCV 94 02/23/2024 PLT 222 02/23/2024 Lab Results Component Value Date GLU 346 (H) 02/23/2024 CALCIUM 8.4 (L) 02/23/2024 K 4.5 02/23/2024 CO2 23 02/23/2024 CL 104 02/23/2024 BUN 39 (H) 02/23/2024 CREATININE 1.48 (H) 02/23/2024 No results found for: AMYLASE No results found for: LIPASE Lab Results Component Value Date ALT 15 02/23/2024 AST 15 02/23/2024 ALKPHOS 36 (L) 02/23/2024 No results found for: INR , PROTIME Assessment Mary Jane Suarez is a 53 y.o.female with right lower quadrant wound. Plan Debridement tomorrow. NPO at midnight. Evaluation included: Preparing to see the patient (e.g., review of tests) Obtaining and/or reviewing separately obtained history Performing a medically appropriate examination and/or evaluation Counseling and educating the patient/family/caregiver Referring and communicating with other health managed care coordinator [email or web address] RENEE DUBOSE APRN-JOSE [facility] [place] This note was created with the assistance of a speech recognition program. While intending to generate a timely document that accurately reflects the content of the visit, no guarantee can be provided that every grammatical or spelling mistake has been or will be identified or corrected. Thank you for your understanding. SHAYLA Rubio 02/23/24 1453 Abdominal wound with necrosis. Debridement tomorrow. I have seen and evaluated the patient, and have reviewed the history above and agree. I have repeated the ramos portions of the physical exam and concur with the nurse practitioner's findings. I have reviewed all laboratory findings and imaging reports/films. I agree with the plan as noted above. [facility]09-23-2024 Consult note* Balaji Amaya MD - 02/23/2024 1:29 PM EDT Images from the original note were not included. Chief Complaint: Wound History of Present Illness Mary Jane Suarez is a 53 y.o. female who presented to emergency department on as advised by the wound care clinic. Approximately 3-4 weeks ago she was bit twice by a spider in the right lower abdomen. Initially she was treated as an outpatient with oral antibiotics, however, the wound continued to worsen and she was having increased pain, purulent drainage and fevers. Wound cultures pending. Review of Systems Constitutional: Negative for fever and unexpected weight change. HENT: Negative for trouble swallowing. Respiratory: Negative for shortness of breath. Cardiovascular: Negative for chest pain. Gastrointestinal: Negative for nausea, vomiting, abdominal pain, diarrhea, constipation, blood in stool and black tarry stool. Genitourinary: Negative for dysuria and difficulty urinating. Musculoskeletal: Negative for gait problem. Skin: Positive for wound. Negative for rash. Neurological: Negative for dizziness, weakness and light-headedness. Hematological: Does not bruise/bleed easily. Psychiatric/Behavioral: Negative for confusion. Past Medical History: Diagnosis Date Anemia Asthma COPD (chronic obstructive pulmonary disease) [place] Diabetes type 2, controlled [place] GI problem Herniation of right side of L4-L5 intervertebral disc High cholesterol Hypertension Hypothyroidism Nerve damage in feet and legs Osteoarthritis Ovarian cancer [place] Past Surgical History: Procedure Laterality Date APPENDECTOMY CHOLECYSTECTOMY DISCECTOMY KNEE ARTHROSCOPY Right NASAL SEPTUM SURGERY REPLACEMENT TOTAL KNEE Right SHOULDER HARDWARE REMOVAL TONSILLECTOMY Allergies Allergen Reactions Bactrim [Sulfamethoxazole-Trimethoprim] Anaphylaxis Penicillins Anaphylaxis Sulfamethoxazole Anaphylaxis and Swelling Sulfanilamide Anaphylaxis Trimethoprim Anaphylaxis Aspirin Vomiting Avelox [Moxifloxacin] Hives Azithromycin Hives Cefzil [Cefprozil] Hives Cephalexin Hives Ciprofloxacin Hives Percocet [Oxycodone-Acetaminophen] Vomiting Soy Adhesive Rash Current Facility-Administered Medications: acetaminophen (TYLENOL) tablet 650 mg, 650 mg, oral, Q4H PRN, Leticia Dong APRN-MEDICAL PSYCHOTHERAPIST, 650 mg at 02/20/24 2328 allopurinoL (ZYLOPRIM) tablet 300 mg, 300 mg, oral, Daily, Leticia Dong APRN- MEDICAL PSYCHOTHERAPIST, 300 mg at 02/23/24 0810 cyclobenzaprine (FLEXERIL) tablet 10 mg, 10 mg, oral, Nightly, SHAYLA Stephens, 10 mg at 02/22/24 2209 dextrose (GLUTOSE) 40 % gel 15 g, 15 g, oral, PRN, SHAYLA Stephens dextrose 5 % (D5W) infusion, 100 mL/hr, intravenous, Continuous PRN, Leticia Dong APRN-JOSE dextrose 50 % in water (D50W) 50% solution 25 mL, 25 mL, intravenous, PRN, Leticia Dong APRN-JOSE fluticasone furoate-vilanteroL (BREO ELLIPTA) 200-25 mcg/dose inhaler 1 puff, 1 puff, inhalation, Daily, SHAYLA Stephens, 1 puff at 02/23/24 1151 glucagon HCL injection 1 mg, 1 mg, intramuscular, PRN, SHAYLA Stephens [START ON 02/24/2024] heparin (porcine) injection 5,000 Units, 5,000 Units, subcutaneous, Q8H JONATHAN, SHAYLA Pinedo HYDROcodone-acetaminophen (NORCO) 5-325 mg per tablet 1 tablet, 1 tablet, oral, Q4H PRN, SHAYLA Stephens, 1 tablet at 02/23/24 0935 insulin lispro (HumaLOG) injection 2-10 Units, 2-10 Units, subcutaneous, TID with meals, Manolo Padilla APRN-JOSE, 8 Units at 02/23/24 1135 insulin lispro (HumaLOG) injection 2-8 Units, 2-8 Units, subcutaneous, Nightly, SHAYLA Pinedo levothyroxine (SYNTHROID, LEVOTHROID) tablet 150 mcg, 150 mcg, oral, Daily, Leticia Dong APRN-JOSE, 150 mcg at 02/23/24 0512 magnesium sulfate IVPB 2000 mg/50 mL in iso-osmotic water (40 mg/mL premix), 2,000 mg, intravenous,PRN, Leticia Dong APRN-JOSE magnesium sulfate IVPB 4000 mg/100 mL in iso-osmotic water (40 mg/mL premix), 4,000 mg, intravenous, PRN, Leticia Dong APRN-JOSE metoprolol tartrate (LOPRESSOR) tablet 75 mg, 75 mg, oral, BID, Leticia Dong APRN-MEDICAL PSYCHOTHERAPIST, 75 mg at 02/23/24 0810 montelukast (SINGULAIR) tablet 10 mg, 10 mg, oral, Nightly, Leticia Dong APRN- MEDICAL PSYCHOTHERAPIST, 10 mg at 02/22/24 2209 morphine injection 2 mg, 2 mg, intravenous, Q4H PRN, SHAYLA Stephens ondansetron (PF) (ZOFRAN) injection 4 mg, 4 mg, intravenous, Q6H PRN, Leticia Dong APRN-JOSE pantoprazole (PROTONIX) EC tablet 40 mg, 40 mg, oral, QAM AC, Leticia Dong APRN-JOSE, 40 mg at 02/23/24 0512 potassium chloride (KLOR-CON M 20) CR tablet 30-50 mEq, 30-50 mEq, oral, PRN OR potassium chloride (KAYCIEL) 20 mEq/15 mL solution 30-50 mEq, 30-50 mEq, oral, PRN, Leticia Dong APRN-MEDICAL PSYCHOTHERAPIST pregabalin (LYRICA) capsule 75 mg, 75 mg, oral, TID, Leticia Dong APRN-JOSE, 75 mg at 02/23/24 1300 sennosides-docusate sodium (SENOKOT-S) 8.6-50 mg 1 tablet, 1 tablet, oral, Q12H PRN, Leticia Dong APRN-JOSE sodium chloride 0.9 % flush 3 mL, 3 mL, intravenous, PRN, Antonio Parra, sodium chloride 0.9 % flush bag, 25 mL, intravenous, PRN, SHAYLA Stephens sodium chloride 0.9 % infusion, 20 mL/hr, intravenous, Continuous PRN, SHAYLA Stephens sodium hypochlorite (DAKIN'S 1/4 STRENGTH) 0.125 % external solution 1 Application, 1 Application, topical, BID, SHAYLA Rai vancomycin (VANCOCIN) 1,500 mg in sodium chloride 0.9 % 500 mL IVPB, 1,500 mg, intravenous, Q36H, SHAYLA Stephens, Stopped at 02/22/24 1015 Social History Socioeconomic History Marital status: Single Spouse name: Not on file Number of children: Not on file Years of education: Not on file Highest education level: Not on file Occupational History Not on file Tobacco Use Smoking status: Never Smokeless tobacco: Never Vaping Use Vaping status: Never Used Substance and Sexual Activity Alcohol use: Not Currently Drug use: Not Currently Sexual activity: Defer Other Topics Concern Not on file Social History Narrative Not on file Social Determinants of Health Financial Resource Strain: Not on file Food Insecurity: No Food Insecurity (02/20/2024) Hunger Screening Food Insecurity - Worry: Never True Food Insecurity - Inability: Never True Transportation Needs: No Transportation Needs (02/20/2024) PRAPARE - Transportation Lack of Transportation (Medical): No Lack of Transportation (Non-Medical): No Physical Activity: Not on file Stress: Not on file Social Connections: Not on file Interpersonal Safety: Not At Risk (02/20/2024) Humiliation, Afraid, Rape, and Kick questionnaire Fear of Current or Ex-Partner: No Emotionally Abused: No Physically Abused: No Sexually Abused: No Housing Instability: Low Risk (02/20/2024) Housing Instability Housing Instability: No Family History Problem Relation Age of Onset Arthritis Mother Asthma Mother Hypertension Mother Hyperlipidemia Mother Stroke Mother Arthritis Father Diabetes Father Hypertension Father Alzheimer's disease Father Objective Physical Exam Constitutional: General: She is not in acute distress. Appearance: Normal appearance. She is not ill-appearing. HENT: Head: Normocephalic and atraumatic. Mouth/Throat: Mouth: Mucous membranes are moist. Eyes: Pupils: Pupils are equal, round, and reactive to light. Cardiovascular: Rate and Rhythm: Normal rate. Pulmonary: Effort: Pulmonary effort is normal. No respiratory distress. Abdominal: General: There is no distension. Palpations: Abdomen is soft. Tenderness: There is abdominal tenderness in the right lower quadrant. Comments: Right lower quadrant wound with yellow drainage Musculoskeletal: General: Normal range of motion. Skin: General: Skin is warm and dry. Neurological: Mental Status: She is alert and oriented to person, place, and time. Mental status is at baseline. Vital Signs: Blood pressure 125/51, pulse 77, temperature 36.7 C (98 F), temperature source Oral, resp. rate 16, height 157.5 cm (5' 2 ), weight 124.2 kg (273 lb 12.8 oz), SpO2 92%. Respiratory Source: O2 Device: None (Room air) Admission Weight: Weight: 118.4 kg (261 lb) Labs Lab Results Component Value Date WBC 6.4 02/23/2024 HGB 8.8 (L) 02/23/2024 HCT 26.5 (L) 02/23/2024 MCV 94 02/23/2024 PLT 222 02/23/2024 Lab Results Component Value Date GLU 346 (H) 02/23/2024 CALCIUM 8.4 (L) 02/23/2024 K 4.5 02/23/2024 CO2 23 02/23/2024 CL 104 02/23/2024 BUN 39 (H) 02/23/2024 CREATININE 1.48 (H) 02/23/2024 No results found for: AMYLASE No results found for: LIPASE Lab Results Component Value Date ALT 15 02/23/2024 AST 15 02/23/2024 ALKPHOS 36 (L) 02/23/2024 No results found for: INR , PROTIME Assessment Mary Jane Suarez is a 53 y.o.female with right lower quadrant wound. Plan Debridement tomorrow. NPO at midnight. Evaluation included: Preparing to see the patient (e.g., review of tests) Obtaining and/or reviewing separately obtained history Performing a medically appropriate examination and/or evaluation Counseling and educating the patient/family/caregiver Referring and communicating with other health managed care coordinator [email or web address] SHAYLA RUBIO [facility] Phys[facility] General Surgery [place] This note was created with the assistance of a speech recognition program. While intending to generate a timely document that accurately reflects the content of the visit, no guarantee can be provided that every grammatical or spelling mistake has been or will be identified or corrected. Thank you for your understanding. SHAYLA Rubio 02/23/24 1453 Abdominal wound with necrosis. Debridement tomorrow. I have seen and evaluated the patient, and have reviewed the history above and agree. I have repeated the ramos portions of the physical exam and concur with the nurse practitioner's findings. I have reviewed all laboratory findings and imaging reports/films. I agree with the plan as noted above. * Nicholas Figueroa [facility] - 02/21/2024 8:38 AM EDTAssociated Order(s): PHARMACY TO DOSE VANCO Consult for pharmacy to dose Vancomycin for cellulitis, abdominal wounds. A dose of 1,750mg was gvien at 2034 on 02-20-24. Calculations WT= 125.8kg VD= 88.06L Crcl= 29.9ml/min CL- 1.794L/HR Ke= 0.0204hrs- T 1/2= 34hrs Will review tomorrow mornings BUN/Scr and clinical progress before determining dose. Looks like dose will be 1,500mg-1,750mg every 36-48hrs and would be due tomorrow morning at earliest. Nicholas Figueroa PharmD [facility] documented in this encounterSelect [facility]Up [facility] Net09-23-2024 Plan of care note * Plan of Care - RAYNE Miller - 02/23/2024 1:12 PM EDT Problem: Increased Nutrient Needs (NI-5.1) Description: Increased need for a specific nutrient compared to established reference standards or recommendations based on physiological needs. Goal: Consume > 50% of supplements and meals Outcome: Progressing Flowsheets (Taken 02/23/2024 1311) Nutrition Communication: 02/22 juvenBID 100 %po Source of Nutrition Referral (Initial Visit Only): Nutrition screen Note: Evaluation of progress towards goal: monitor poc [facility] [id number] Progress note* Wound Care - Fiorella Martinez RN - 02/23/2024 12:18 PM EDT Images from the original note were not included. WOUND CARE NOTE Date of Admission: 02/20/2024 3:27 PM Reason for Consult: Abdominal wounds History of Present Illness: Mary Jane Foy [facility] who presents with Abdominal wounds due to a spider bite . Wound has been present since since January 03. Patient has been being seen in the wound clinic. She was sent down to the ER after being seen on Friday02/20/24 due to possible cellulitis of the a bdomen.Pain is worsened with touching. Pain is improved with Medication and rest. Current wound pain 08/09. Vital Signs: BP 125/51 Pulse 77 Temp 36.7 C (98 F) (Oral) Resp 16 Ht 157.5 cm (5' 2 ) Wt 124.2 kg (273 lb 12.8 oz) SpO2 92% BMI 50.08 kg/m Wound related workup: General surgery consulted for debridement. Patient is to be NPO at midnight and Dr. Amaya will debride tomorrow. Wound Assessment: Wound 01/30/24 1 Abdomen Right Lateral;Proximal (Active) Wound Image 02/23/24 1200 Site Assessment Red;Yellow;Eschar Unstable 02/23/24 1200 Molly-wound Assessment Blanchable erythema;Red 02/23/24 1200 Wound Length (cm) 3.5 cm 02/23/24 1200 Wound Width (cm) 9.5 cm 02/23/24 1200 Wound Surface Area (cm^2) 33.25 cm^2 02/23/24 1200 Wound Depth (cm) 1 cm 02/23/24 1200 Wound Volume (cm^3) 33.25 cm^3 02/23/24 1200 Change in Wound Size % -179.41 02/23/24 1200 Closure Open to air 02/23/24 0718 Drainage Description Sanguineous 02/23/24 1200 Drainage Amount Small 02/23/24 1200 Treatments Cleansed with;Dakins solution 02/23/24 1200 Debridement Performed? N 02/23/24 1200 Dressing Type Gauze Rolled/Kerlix;Foam 02/23/24 1200 Dressing Changed New 02/23/24 1200 Dressing Status Clean;Dry;Intact 02/23/24 1200 State of Healing Non-healing 02/23/24 1200 Wound Bed Granulation (%) < 25% 02/23/24 1200 Wound Bed Slough (%) 75% to 100% 02/23/24 1200 Wound Bed Eschar (%) < 25% 02/23/24 1200 Margins Defined edges 02/23/24717 Non-staged Wound Description Not applicable 02/23/24717 Pressure Injury Stage U 02/23/24 0718 Wound 01/30/24 2 Abdomen Right Lateral;Distal (Active) Wound Image 02/23/24 1200 Site Assessment Eschar Unstable;Yellow;Red 02/23/24 1200 Molly-wound Assessment Blanchable erythema;Red 02/23/24 1200 Wound Length (cm) 3 cm 02/23/24 1200 Wound Width (cm) 4 cm 02/23/24 1200 Wound Surface Area (cm^2) 12 cm^2 02/23/24 1200 Wound Depth (cm) 1 cm 02/23/24 1200 Wound Volume (cm^3) 12 cm^3 02/23/24 1200 Change in Wound Size % 52.38 02/23/24 1200 Closure None 02/23/24717 Drainage Description Sanguineous 02/23/24 1200 Drainage Amount Small 02/23/24 1200 Treatments Site care 02/23/24717 Debridement Performed? N 02/23/24 1200 Dressing Type Foam;Gauze Rolled/Kerlix 02/23/24 1200 Dressing Changed New 02/23/24717 Dressing Status Clean;Dry;Intact 02/23/24717 State of Healing Non-healing 02/23/24717 Wound Bed Granulation (%) < 25% 02/23/24 1200 Wound Bed Slough (%) 75% to 100% 02/23/24 1200 Wound Bed Eschar (%) < 25% 02/23/24 1200 Margins Unattached edges 02/23/24717 Non-staged Wound Description Not applicable 02/23/24717 Pressure Injury Stage U 02/23/24717 Plan of care was discussed with Wound care services MEDICAL PSYCHOTHERAPIST Wound Plan Dressing: Apply moistened gauze with 0.125% Dakins then secure with dry dressing. Follow up: Will continue to follow while inpatient. Patient has a follow up appointment in the wound clinic Thank you for allowing us to participate in the care of this patient. Please feel free to call us with any questions or concerns. Fiorella Martinez RN [facility] Preferred contact via Ext. [phone], [employer] Chat or [facility] Wound [facility] [place] TRUCKING SUPERVISOR: Quinton Weber APRN-MEDICAL PSYCHOTHERAPIST, CWON [facility] [id number] Progress note* Discharge Planning Note - Alona Okeefe - 02/23/2024 12:02 PM EDT DISCHARGE PLANNING NOTE Authumn D [facility] Hand off received from BOZENA Cervantes. Infectious disease consulted on patient. Discharge plan will be pending Infectious Disease home going recommendations. Discharge Plan: Possible Option #1 - Home on oral antibiotics. Possible Option #2 - Home with IV PICC line and IV antibiotics administered at home. Will need referral to [facility] [facility]. This option must be used if IV antibiotics are ordered > daily. Possible Option #3 - Home with IV PICC line and IV antibiotics administered at [facility]. Discharge IV antibiotics should be ordered as a therapy plan and first dose scheduled with [facility]. This option can be used only if antibiotics are ordered as a daily infusion. Follow up appointments as below: Appointment with Ann Fournier (PCP) in 12 days from today. Tasked to the transition center. Follow up with Wound Clinic in 2 weeks from today. Tasked to the transition center. - Alona Okeefe 02/23/24 12:[address] [facility]09-23-2024 Progress note* Discharge Planning Note - BOZENA Greene - 02/23/2024 9:51 AM EDT Images from the original note were not included. DISCHARGE PLANNING NOTE 02/23/24 0947 Discharge Disposition Discharge Disposition Home with Self Care (pending ID recommendation for AB need at [place]) County Information [facility] Patient Information Primary Caregiver Self Support System Immediate family;Friends (mom, friend Marilynn) Stressors Type of stressor (does not endorse) Income Information Income Information Unemployed Referral To Community Resources Denies needs Discharge Planning Living Arrangements Parent (mom lives with pt) Support Systems Parent;Friends Assistance Needed uses cane; has walker if needed; nebulizer, shower chair Type of Residence Private residence Private Residence [address] [place] Res[address] Accessibility Steps into home Number of Steps 0 Home Care Services No Community Agencies Currently Utilized [employer] [place] Patient expects to be discharged to: home Does the patient need discharge transport arranged? No Services Requested: Services Requested Discharge Disposition: Home with self care Initial DC Assessment Completed: Yes DC Planning Complete Discharge Milestones: Yes Patient Goals: Patient/Caregiver Goals Patient/Caregiver Goals: Home No Needs (pending ID recommendations for AB) Home No Needs: Caregiver/Family Goals home (pt-stated) Evaluation of progress towards goal: under assessment Chart reviewed. Pleasant pt agreeable to conversation; introduced self & role of SW, assessment/goals as above. Pt said goal is to return home. Patient said she is familiar with having a PICC line as she has [facility] for a prior wound. Pt does not endorse alcohol/substance use. Pt does not endorse food insecurity or financial stressors. Pt is able to afford home medications. Pt has functioning water, heat, cooling & electric inthe home. Pt does not endorse any type of domestic abuse. Pt does not endorse anxiety, depression or other mental health concerns; negative [place] screen. Pt provides own transportation. Pt is independent in/out of the home, performs own household tasks,meal preparation & grocery shops. Pt relayed her mom & good friend Marilynn provide natural supports. Patient's preferred pharmacy is [facility]. PCP verified as Ann Fournier . Educated pt on available community resources including meals on wheels & on benefits of Home Health Care; pt does not endorse any current DC needs. Informed pt that Care Navigation will be following & should HHC be recommended CN would meet & discuss; pt states understanding. Opportunity provided to ask questions, pt does not endorse anyat this time. Plan to prevent readmission is for pt to follow up with PCP, pt prefers to make own appointment, follow DC instructions including medication compliance and to reach out to health care team as needed. Care Navigation following for safe care transition. [facility] hoccer09-23-2024 Consult note* Telehealth Consult - Delonte Colindres MD - 02/23/2024 8:13 AM EDTAssociated Order(s): Consult Infectious Disease Telehealth Images from the original note were not included. Consult Infectious Disease Telehealth Consult performed by: Delonte Colindres MD Consult ordered by: Leticia Dong APRN-JOSE Reason for consult: non-healing wound Tele-Infectious Disease Telemedicine Consult Note Consent Statement: I discussed risks, benefits, and alternatives of a real-time synchronous audiovisual consultation with the patient (and any accompanying persons) including the risks that the patient's personal health details and medical records will be discussed over real-time, synchronous, interactive video/audio/telecommunication technology, the visit will not be recorded without the express consent of both the provider and the patient, andthat there are some limitations compared to [id number]-mk-xnia evaluations. We elected to proceed. Division of Infectious Diseases - Initial Consult Note [facility] - TeleMedicine During Business Hours: Please use indidebt for communication. After Hours: Please call for our answering service. Patient name: Mary Jane Foy [facility] Patient Today's Date and Time: 02/23/2024, 8:13 AM Admission Date: 02/20/2024 Primary Care Physician: ANN FOURNIER APRN-JOSE Impression and Recommendations:: Open abdominal wall wound with complication, initial encounter. The patient presents with two chronic ulcers on the right lower abdomen, [facility] on [facility]30[facility]24. She has been following with Wound Care now for several weeks. There was concern for increasing erythema and drainage with a yellowish exudate from the wounds. Wound care consult in potential consideration for surgical debridement is planned for later this afternoon. She has been on doxycycline and fluconazole as an outpatient. 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 We do not have susceptibilities for this. She endorses a spider bite; not entirely clear if this is the etiology in question, but it does also not necessarily influence our treatment to any great extent. Agree with vancomycin. We will add back fluconazole for longer course. If there is a surgical debridement that is planned, then surgical cultures would potentially be helpful although I am less confident that superficial cultures will be helpful in guiding therapy. We will follow. Thank you for the consultation. Subjective Reason for consultation / Chief complaint:: Abdominal wall wound of the skin with fat layer exposed, spider bite wound. History of Present Illness We appreciate the opportunity to consult on Authsudheer D [facility], a 53 y.o.-year-old female who was initially admitted on 02/20/2024. The patient is a female presenting with a chief complaint of a spider bite on her abdomen, which occurred approximately three to four weeks ago. Initially, she attempted to treat the bites at home by washing them with a wound wash and applying Neosporin. However, thepain intensified over the weekend, prompting her to visit the [facility] emergency room. At the time of her ER visit, the patient reported two bites on her abdomen that were becoming increasingly painful. She described some discharge from the wounds but denied significant swelling or redness. Although she had experienced low- grade fevers and chills at home, she currently denies any fevers, sweats, nausea, or vomiting. The patient has a history of chronic kidney disease and was previously on doxycycline for her condition, as well as levaquin (750 mg) following the bite. Due to multiple allergies to antibiotics, hertreatment options may be limited. Upon evaluation in the emergency department, her workup revealed slight acute kidney injury but no leukocytosis. Her CRP level was elevated at 10.2, and blood and wound cultures were obtained. She was started on vancomycin for potential infection. General surgery has been consulted for possible debridement, although they are unavailable until February 23, 2024. Past Medical History: Past Medical History: Diagnosis Date Anemia Asthma COPD (chronic obstructive pulmonary disease) ([facility] Diabetes type 2, controlled ([facility]) GI problem Herniation of right side of L4-L5 intervertebral disc High cholesterol Hypertension Hypothyroidism Nerve damage in feet and legs Osteoarthritis Ovarian cancer ([facility]) Past Surgical History: Past Surgical History: Procedure Laterality Date APPENDECTOMY CHOLECYSTECTOMY DISCECTOMY KNEE ARTHROSCOPY Right NASAL SEPTUM SURGERY REPLACEMENT TOTAL KNEE Right SHOULDER HARDWARE REMOVAL TONSILLECTOMY Medications: allopurinoL, 300 mg, oral, Daily cyclobenzaprine, 10 mg, oral, Nightly fluticasone furoate-vilanteroL, 1 puff, inhalation, Daily heparin (porcine), 5,000 Units, subcutaneous, Q8H JONATHAN insulin regular human U-500 concentrated , 150 Units of U-500, subcutaneous, BID with meals levothyroxine, 150 mcg, oral, Daily metoprolol tartrate, 75 mg, oral, BID montelukast, 10 mg, oral, Nightly pantoprazole, 40 mg, oral, QAM AC pregabalin, 75 mg, oral, TID sodium hypochlorite, 1 Application, topical, BID vancomycin, 1,500 mg, intravenous, Q36H Social History: Social History Socioeconomic History Marital status: Single Tobacco Use Smoking status: Never Smokeless tobacco: Never Vaping Use Vaping status: Never Used Substance and Sexual Activity Alcohol use: Not Currently Drug use: Not Currently Sexual activity: Defer Social Determinants of Health Food Insecurity: No Food Insecurity (02/20/2024) Hunger Screening Food Insecurity - Worry: Never True Food Insecurity - Inability: Never True Transportation Needs: No Transportation Needs (02/20/2024) PRAPARE - Transportation Lack of Transportation (Medical): No Lack of Transportation (Non-Medical): No Interpersonal Safety: Not At Risk (02/20/2024) Humiliation, Afraid, Rape, and Kick questionnaire Fear of Current or Ex-Partner: No Emotionally Abused: No Physically Abused: No Sexually Abused: No Housing Instability: Low Risk (02/20/2024) Housing Instability Housing Instability: No Family History: Family History Problem Relation Age of Onset Arthritis Mother Asthma Mother Hypertension Mother Hyperlipidemia Mother Stroke Mother Arthritis Father Diabetes Father Hypertension Father Alzheimer's disease Father Immunization History: There is no immunization history on file for this patient. Allergies: Allergies Allergen Reactions Bactrim [Sulfamethoxazole-Trimethoprim] Anaphylaxis Penicillins Anaphylaxis Sulfamethoxazole Anaphylaxis and Swelling Sulfanilamide Anaphylaxis Trimethoprim Anaphylaxis Aspirin Vomiting Avelox [Moxifloxacin] Hives Azithromycin Hives Cefzil [Cefprozil] Hives Cephalexin Hives Ciprofloxacin Hives Percocet [Oxycodone-Acetaminophen] Vomiting Soy Adhesive Rash Review of Systems: Constitutional: Denies fever, chills, or significant weight loss; reports fatigue. Skin: Reports pain and discharge from spider bites; denies swelling or redness. Gastrointestinal: Denies nausea or vomiting. Renal: Reports chronic kidney disease; denies changes in urinary habits. Neurological: Denies headaches or dizziness. Objective Physical Examination: BP 125/51 Pulse 77 Temp 36.7 C (98 F) (Oral) Resp 16 Ht 157.5 cm (5' 2 ) Wt 124.2 kg (273lb 12.8 oz) SpO2 92% BMI 50.08 kg/m Temperature Range: Temp: 36.7 C (98 F) Temp Av.9 C (98.5 F) Min: 36.4 C (97.5 F) Max: 37.6 C (99.7 F) Visit was conducted via the [employer] of [facility]. My impressions are as follows: General: Alert and oriented; appears mildly distressed due to pain. Vital Signs: Stable; afebrile. Skin: Two spider bite sites on the abdomen; slight tenderness; drainage observed; no signs of acuteinfection. Abdomen: Soft, non-tender; no distension or palpable masses. Extremities: No edema or cyanosis; normal pulses. Neurological: No focal deficits; normal strength and sensation. Labs: I have reviewed the following labs personally: Results from last 7 days Lab Units 02/23/2442602/22/2442002/21/24 0438 WBC X10E9/L 6.4 7.9 7.0 HEMOGLOBIN g/dL 8.8* 9.2* 9.4* HEMATOCRIT % 26.5* 27.6* 28.4* MCV fL 94 94 95 PLATELETS X10E9/L 222 253 247 NEUTROS ABS X10E9/L 3.5 4.7 4.0 LYMPHS ABS AUTO X10E9/L 2.0 2.1 2.0 MONOS ABS AUTO X10E9/L 0.6 0.7 0.8 EOS ABS AUTO X10E9/L 0.2 0.3 0.2 BASOS ABS AUTO X10E9/L 0.1 0.0 0.0 Results from last 7 days Lab Units 02/23/2442602/22/24 1554 02/22/24 1214 02/22/24 04202/21/24 1145 02/21/24 0438 SODIUM mmol/L 135 -- -- 138 -- 140 POTASSIUM mmol/L 4.5 -- -- 4.3 -- 4.2 CHLORIDE mmol/L 104 -- -- 108 -- 107 CO2 mmol/L 23 -- -- 21* -- 23 BUN mg/dL 39* -- -- 38* -- 45* CREATININE mg/dL 1.48* -- -- 1.47* -- 1.68* BEDSIDE GLUCOSE mg/dL -- 423* 280* -- < > -- GLUCOSE mg/dL 252* -- -- 105* -- 142* CALCIUM mg/dL 8.4* -- -- 8.5 -- 8.4* ALBUMIN g/dL 2.5* -- -- 2.6* -- 2.7* ALK PHOS U/L 36* -- -- 37* -- 35* ALT U/L 15 -- -- 16 -- 17 AST U/L 15 -- -- 23 -- 23 < > = values in this interval not displayed. Results from last 7 days Lab Units 02/21/24 0438 02/20/24 1552 CRP mg/dL -- 10.2* HEMOGLOBIN A1C % 9.6* -- Cultures: Microbiology Results Procedure Component Value Units Date/Time Blood culture #2 [[id number]] Collected: 02/20/241917 Specimen: Blood Updated: 02/22/242205 Culture NO GROWTH 2 DAYS Blood culture #1 [[id number]] Collected: 02/20/241909 Specimen: Blood Updated: 02/22/242205 Culture NO GROWTH 2 DAYS Wound culture superficial includes gram stain [[id number]] Collected: 02/20/24 1710 Specimen: Wound Swab Updated: 02/22/24 1251 Specimen Notes SPECIMEN 2 Gram Stain Result >25 WHITE BLOOD CELLS/LPF 0 to 1 SQUAMOUS EPITHELIAL CELLS/LPF MODERATE GRAM POSITIVE COCCI FEW GRAM NEGATIVE RODS RARE YEAST Culture CULTURE IN PROGRESS Wound culture superficial includes gram stain [[id number]] Collected: 02/20/24 1507 Specimen: Wound Swab Updated: 02/22/24 1025 Specimen Notes SPECIMEN 1 Gram Stain Result 10 to 24 WHITE BLOOD CELLS/LPF 0 to 1 SQUAMOUS EPITHELIAL CELLS/LPF FEW GRAM POSITIVE COCCI RARE GRAM NEGATIVE RODS Culture MANY MIXED GRAM POSITIVE AND GRAM NEGATIVE ORGANISMS NO STAPHYLOCOCCUS AUREUS ISOLATED NO PSEUDOMONAS AERUGINOSA ISOLATED NO BETA HEMOLYTIC STREPTOCOCCI ISOLATED Telemedicine Statement: Tele-Infectious Disease Telemedicine Consult Note Consent Statement: I discussed risks, benefits, and alternatives of a real-time synchronous audiovisual consultation with the patient (and any accompanying persons) including the risks that the patient's personal health details and medical records will be discussed over real-time, synchronous, interactive video/audio/telecommunication technology, the visit will not be recorded without the express consent of both the provider and the patient, andthat there are some limitations compared to [id number] evaluations. We elected to proceed. Thank you for allowing us to participate in the care of this patient. Please call with questions. Delonte Colindres MD, MPH, FACP, FIDSA From 7AM-7PM: Please use indidebt for communication. From 7PM-7AM: Please call for our answering service. [employer] Work Phone: [phone] 261-712409-22-2024 Plan of care note* Plan of Care - Meliza Ramires RN - 02/22/2024 10:51 PM EDT Problem: Safety Goal: Patient will be injury free during hospitalization Description: INTERVENTIONS: 1. Assess patient's risk for falls and implement fall prevention plan of care per policy 2. Provide and maintain a safe environment 3. Proper use of double Identifiers 4. Medication administration using the 5 rights 5. Hand hygiene 6. Specimens are labeled at the bedside 7. Instruct patient/ patient outside sales representative insurance about use of safety devices 8. Include patient/ patient outside sales representative insurance in decisions related to safety Outcome: Progressing Note: Evaluation of progress towards goal: Safety maintained Problem: Infection Goal: Absence of infection during hospitalization Description: Interventions: 1. Assess and monitor for signs and symptoms of infection 2. Monitor lab/diagnostic results 3. Monitor all insertion sites i.e., indwelling lines, tubes and drains 4. Monitor endotracheal (as able) and nasal secretions for changes in amount and color 5. Administer medications as ordered 6. Instruct and encourage patient and family to use good hand hygiene technique 7. Identify and instruct patient/patient outside sales representative insurance in use of appropriate isolation precautionsfor identified infection/symptoms 8. Provide and discuss with patient/patient outside sales representative insurance on educational MDRO sheet 9. Encourage and monitor nutritional status daily and consult retort feeder ground bone if indicated 10. Implement neutropenic guidelines as needed 11. Review exposure to history of communicable disease and recent travel history on admission 12. Encourage annual influenza vaccine 13. Encourage pneumonia vaccine Outcome: Progressing Note: Evaluation of progress towards goal: Ongoing IV abt tx Problem: Knowledge Deficit Goal: Patient/patient outside sales representative insurance demonstrates understanding of disease process, treatment plan,medications, and discharge instructions Description: INTERVENTIONS 1. Complete learning assessment and assess knowledge base 2. Provide teaching at level of understanding 3. Provide teaching via preferred learning method(s) Outcome: Progressing Note: Evaluation of progress towards goal: In agreement with plan of care [facility]09-22-2024 Plan of care note* Plan of Care - Mikki Street RN - 02/22/2024 8:50 AM EDT Problem: Pain Goal: Patient goal is pain score less than 4, able to rest, and participant in treatment plan as appropriate Description: INTERVENTIONS: 1. Encourage patient or legal outside sales representative insurance to report early pain and ask for pain medicine when needed 2. Assess pain using appropriate pain scale and include the scale used when documenting 3. Administer analgesics based on type and severity of pain and evaluate response within appropriate time frame 4. Implement non-pharmacological measures as appropriate and evaluate response 5. Consider cultural and social influences on pain and pain management 6. Notify LIP if interventions ineffective or patient reports new pain 7. Monitor vital signs including pulse ox, end-tidal CO2 based on pain intervention 8. Reassess pain per policy 9. Teach patient or legal outside sales representative insurance interventions for comforting Outcome: Progressing Note: Evaluation of progress towards goal: monitor and treat pain as ordered Problem: Safety Goal: Patient will be injury free during hospitalization Description: INTERVENTIONS: 1. Assess patient's risk for falls and implement fall prevention plan of care per policy 2. Provide and maintain a safe environment 3. Proper use of double Identifiers 4. Medication administration using the 5 rights 5. Hand hygiene 6. Specimens are labeled at the bedside 7. Instruct patient/ patient outside sales representative insurance about use of safety devices 8. Include patient/ patient outside sales representative insurance in decisions related to safety Outcome: Progressing Note: Evaluation of progress towards goal: remains free from fall/ injury Problem: Infection Goal: Absence of infection during hospitalization Description: Interventions: 1. Assess and monitor for signs and symptoms of infection 2. Monitor lab/diagnostic results 3. Monitor all insertion sites i.e., indwelling lines, tubes and drains 4. Monitor endotracheal (as able) and nasal secretions for changes in amount and color 5. Administer medications as ordered 6. Instruct and encourage patient and family to use good hand hygiene technique 7. Identify and instruct patient/patient outside sales representative insurance in use of appropriate isolation precautionsfor identified infection/symptoms 8. Provide and discuss with patient/patient outside sales representative insurance on educational MDRO sheet 9. Encourage and monitor nutritional status daily and consult retort feeder ground bone if indicated 10. Implement neutropenic guidelines as needed 11. Review exposure to history of communicable disease and recent travel history on admission 12. Encourage annual influenza vaccine 13. Encourage pneumonia vaccine Outcome: Progressing Note: Evaluation of progress towards goal: antibiotics administered as ordered [facility]09-22-2024 Plan of care note* Plan of Care - Meliza Ramires RN - 02/22/2024 12:19 AM EDT Problem: Safety Goal: Patient will be injury free during hospitalization Description: INTERVENTIONS: 1. Assess patient's risk for falls and implement fall prevention plan of care per policy 2. Provide and maintain a safe environment 3. Proper use of double Identifiers 4. Medication administration using the 5 rights 5. Hand hygiene 6. Specimens are labeled at the bedside 7. Instruct patient/ patient outside sales representative insurance about use of safety devices 8. Include patient/ patient outside sales representative insurance in decisions related to safety Outcome: Progressing Note: Evaluation of progress towards goal: Safety maintained Problem: Knowledge Deficit Goal: Patient/patient outside sales representative insurance demonstrates understanding of disease process, treatment plan,medications, and discharge instructions Description: INTERVENTIONS 1. Complete learning assessment and assess knowledge base 2. Provide teaching at level of understanding 3. Provide teaching via preferred learning method(s) Outcome: Progressing Note: Evaluation of progress towards goal: In agreement with plan of care Problem: Anxiety Goal: Anxiety is at manageable level Description: Patient's goal is: INTERVENTIONS 1. Assess and monitor patient's anxiety level 2. Monitor for signs and symptoms of anxiety both physical and emotional (heart palpitations, chestpain, shortness of breath, headaches, nausea, feeling jumpy, restlessness, irritable, apprehensive) 3. Reorient/orient patient to unit/surroundings 4. Explain treatment plan 5. Explain tests/procedures prior to initiation 6. Encourage participation in care 7. Encourage verbalization of concerns/fears 8. Assess coping mechanisms 9. Assist in developing anxiety-reducing skills 10. Administer complimentary therapies 11. Manage patient's environment 12. Limit or eliminate stimulants such as caffeine and nicotine 13. Collaborate with ancillary departments 14. Include patient/patient outside sales representative insurance in decisions related to anxiety Outcome: Progressing Note: Evaluation of progress towards goal: Anxiety improved [facility]09-21-2024 History and physical note* Ghanshyam Mayberry MD - 02/21/2024 9:05 AM EDT Images from the original note were not included. [facility] [address] [facility] [id number] Hospital Medicine History & Physical Patient: Mary Jane Suarez Date of : 1970 Room: PCP: SHAYLA KRAFT Admission date: 02/20/2024 3:27 PM Encounter date: 02/21/24 Hospital Day: 2 SUBJECTIVE Mary Jane Suarez is a 53 y.o. female with PMH of diabetes, chronic kidney disease, SVT, asthma, hypothyroidism, who presented to emergency department under the advice of the wound care clinic. Patient stated approximately 3-4 weeks ago got bit twice by a spider, wound has continued to worsen. She was previously on doxycycline, she does have multiple allergies to antibiotics. She was stated shewas also had low-grade fevers at home. Workup in emergency department did show slight acute kidney injury on chronic kidney disease, no leukocytosis, lactate was negative, CRP elevated at 10.2. Blood cultures and wound cultures have been collected. She was started on vancomycin. Will have Infectious Disease and General surgery see her for potential debridement, for which apparently General surgery is not available until 02/23/2024. Allergies: Bactrim [sulfamethoxazole-trimethoprim], Penicillins, Sulfamethoxazole, Sulfanilamide, Trimethoprim, Aspirin, Avelox [moxifloxacin], Azithromycin, Cefzil [cefprozil], Cephalexin, Ciprofloxacin, Percocet [oxycodone-acetaminophen], and Adhesive Prior to Admission medications Medication Sig Start Date End Date Taking? Authorizing Provider acetaminophen-codeine (TYLENOL #3) 300-30 mg per tablet Take 1 tablet by mouth every 4 (four) hoursas needed for pain. 01/12/24 Yes Not In System Ref Prov albuterol (PROVENTIL HFA;VENTOLIN HFA) 90 mcg/actuation inhaler Inhale 2 puffs every 4 (four) hoursas needed for shortness of breath. Yes Not In System Ref Prov allopurinoL (ZYLOPRIM) 300 mg tablet Take 1 tablet (300 mg total) by mouth in the morning. Yes Not In System Ref Prov ascorbic acid, vitamin C, (ascorbic acid) 250 mg tablet,chewable Chew and swallow. Yes Not In System Ref Prov biotin 10,000 mcg capsule Take by mouth. Yes Not In System Ref Prov cinnamon bark (CINNAMON) 500 mg capsule Take 4 capsules (2,000 mg total) by mouth in the morning. Yes Not In System Ref Prov clopidogreL (PLAVIX) 75 mg tablet Take 1 tablet (75 mg total) by mouth in the morning. Yes Not In System Ref Prov cyclobenzaprine (FLEXERIL) 10 mg tablet Take 1 tablet (10 mg total) by mouth nightly. 11/03/17 Yes Not In System Ref Prov doxycycline (ADOXA) 100 MG tablet Take 1 tablet (100 mg total) by mouth in the morning and 1 tablet(100 mg total) before bedtime. Do all this for 14 days. 02/06/24 02/20/24 Yes Jayleen Nicole APRN-JOSE dupilumab (DUPIXENT PEN) 300 mg/2 mL pen injector SUBQ injection pen Inject 2 mL (300 mg total) under the skin once. One injection subcutaneous every 14 days Yes Not In System Ref Prov fenofibrate (LOFIBRA) 160 mg tablet 10/06/17 Yes Not In System Ref Prov ferrous sulfate (IRON) 325 (65 FE) mg tablet Take 1 tablet (325 mg total) by mouth daily with breakfast. Yes Not In System Ref Prov fexofenadine (ORAL) 180 mg tablet Take 1 tablet (180 mg total) by mouth in the morning. Yes Not In System Ref Prov fluticasone (FLONASE) 50 mcg/actuation nasal spray 10/06/17 Yes Not In System Ref Prov furosemide (LASIX) 40 mg tablet Take 1 tablet (40 mg total) by mouth 2 (two) times a day before meals. 10/06/17 Yes Not In System Ref Prov HUMULIN R U-500, CONC, KWIKPEN injection Inject 150 Units of U-500 under the skin in the morning and 150 Units of U-500 at noon and 150 Units of U-500 in the evening and 150 Units of U-500 before bedtime. 150-190 units QID. 10/07/17 Yes Not In System Ref Prov HYDROcodone-acetaminophen (NORCO) 5-325 mg per tablet Take 1 tablet by mouth every 4 (four) hours as needed for pain. 01/18/24 Yes Not In System Ref Prov inulin (FIBER GUMMIES) 2 gram tablet,chewable Chew and swallow. Yes Not In System Ref Prov vango-cwabt-[id number]-uxsane 996-21-86-50 mg capsule Take by mouth. Yes Not In System Ref Prov Lactobacillus acidophilus (ACIDOPHILUS) capsule Take 1 capsule by mouth in the morning and 1 capsule at noon and 1 capsule in the evening. Take with meals. Yes Not In System Ref Prov levothyroxine (SYNTHROID, LEVOTHROID) 150 MCG tablet 10/07/17 Yes Not In System Ref Prov lisinopriL (PRINIVIL,ZESTRIL) 10 mg tablet Take 1 tablet (10 mg total) by mouth in the morning. 11/03/23 Yes Not In System Ref Prov LYRICA 75 mg capsule Take 1 capsule (75 mg total) by mouth 3 (three) times a day. 11/03/17 Yes Not InSystem Ref Prov metoprolol tartrate (LOPRESSOR) 50 mg tablet Take 1.5 tablets (75 mg total) by mouth in the morningand 1.5 tablets (75 mg total) before bedtime. Indications: high blood pressure. 10/06/17 Yes Not In System Ref Prov montelukast (SINGULAIR) 10 mg tablet 11/03/17 Yes Not In System Ref Prov multivitamin tablet,chewable Chew 2 capsules and swallow. Yes Not In System Ref Prov ondansetron ODT (ZOFRAN-ODT) 4 mg disintegrating tablet Dissolve 1 tablet (4 mg total) on tongue every 8 (eight) hours as needed for nausea. 11/25/17 Yes Not In System Ref Prov pantoprazole (PROTONIX) 40 mg EC tablet Take 1 tablet (40 mg total) by mouth in the morning and 1 tablet (40 mg total) before bedtime. Indications: gastroesophageal reflux disease. 11/03/17 Yes Not In System Ref Prov SYMBICORT 160-4.5 mcg/actuation inhaler Inhale 2 puffs in the morning and 2 puffs before bedtime. Indications: bronchospasm prevention with COPD. 10/06/17 Yes Not In System Ref Prov tiotropium bromide 1.25 mcg/actuation mist Inhale 2 puffs in the morning. Yes Not In System Ref Prov traMADoL (ULTRAM) 50 mg tablet Take 1 tablet (50 mg total) by mouth every 6 (six) hours as needed for pain. 12/23/23 Yes Not In System Ref Prov TRULICITY 4.5 mg/0.5 mL pen injector Inject 4.5 mg under the skin once a week. Sundays07/07/23 Yes Not In System Ref Prov vitamin B complex (SUPER B-50 COMPLEX PLUS ORAL) Take by mouth. Yes Not In System Ref Prov vitamin E, dl,tocopheryl acet, (VITAMIN E, DL, ACETATE,) 400 unit capsule Take 1 capsule (400 Unitstotal) by mouth in the morning. Yes Not In System Ref Prov cholecalciferol, vitamin D3, 2,000 units capsule Take 1 capsule (2,000 Units total) by mouth in themorning. Patient not taking: Reported on 02/20/2024 Not In System Ref Prov Code Status: Full Code Past Medical History: Patient has a past medical history of Anemia, Asthma, COPD (chronic obstructive pulmonary disease) ([facility] Diabetes type 2, controlled ([facility] GI problem, Herniation of right side of L4-L5 intervertebral disc, High cholesterol, Hypertension, Hypothyroidism, Nerve damage, Osteoarthritis, and Ovarian cancer ([facility] Past Surgical History: Patient has a past surgical history that includes Tonsillectomy; Appendectomy; Knee arthroscopy (Right); Cholecystectomy; Shoulder hardware removal; Nasal septum surgery; Discectomy; and Replacement total knee (Right). Family History: Patient's family history includes Alzheimer's disease in her father; Arthritis in her father and mother; Asthma in her mother; Diabetes in her father; Hyperlipidemia in her mother; Hypertension in her father and mother; Stroke in her mother. Social History: Patient reports that she has never smoked. She has never used smokeless tobacco. She reports that she does not currently use alcohol. She reports that she does not currently use drugs. Review of Systems Constitutional: Positive for fever. Negative for chills. HENT: Negative for ear pain and sore throat. Eyes: Negative for pain and visual disturbance. Respiratory: Negative for cough and shortness of breath. Cardiovascular: Negative for chest pain and palpitations. Gastrointestinal: Negative for abdominal pain and vomiting. Genitourinary: Negative for dysuria and hematuria. Musculoskeletal: Positive for arthralgias. Skin: Positive for wound. Negative for color change and rash. Neurological: Positive for weakness. Negative for seizures and syncope. All other systems reviewed and are negative. OBJECTIVE BP 113/51 Pulse 91 Temp 36.8 C (98.3 F) (Oral) Resp 20 Ht 157.5 cm (5' 2 ) Wt 125.8 kg (277 lb 4.8 oz) SpO2 90% BMI 50.72 kg/m Temp: [36.6 C (97.8 F)-37.1 C (98.8 F)] 36.8 C (98.3 F) Pulse: [91-111] 91 Resp: [20] 20 BP: (113-154)/(51-68) 113/51 SpO2: [90 %-98 %] 90 % O2 Device: None (Room air) Intake/Output Summary (Last 24 hours) at 02/21/2024 0905 Last data filed at 02/21/2024 0004 Gross per 24 hour Intake 753.26 ml Output -- Net 753.26 ml Physical Exam Constitutional: Appearance: She is well-developed. She is obese. She is ill-appearing. HENT: Head: Normocephalic and atraumatic. Nose: Nose normal. Eyes: Pupils: Pupils are equal, round, and reactive to light. Cardiovascular: Rate and Rhythm: Normal rate and regular rhythm. Heart sounds: Normal heart sounds. No murmur heard. Pulmonary: Effort: Pulmonary effort is normal. No respiratory distress. Breath sounds: Normal breath sounds. No wheezing. Abdominal: General: Bowel sounds are normal. Palpations: Abdomen is soft. Tenderness: There is no abdominal tenderness. Musculoskeletal: General: Normal range of motion. Cervical back: Neck supple. Lymphadenopathy: Cervical: No cervical adenopathy. Skin: General: Skin is warm and dry. Findings: Erythema and wound present. No rash. Comments: Wound to abd Neurological: Mental Status: She is alert and oriented to person, place, and time. Cranial Nerves: No cranial nerve deficit. Medications Scheduled: doxycycline, 100 mg, oral, BID heparin (porcine), 5,000 Units, subcutaneous, Q8H JONATHAN insulin lispro, 2-10 Units, subcutaneous, TID with meals insulin lispro, 2-8 Units, subcutaneous, Nightly pantoprazole, 40 mg, oral, QAM AC sodium hypochlorite, 1 Application, topical, BID vancomycin, , intravenous, Dosed by Levels Infusions: dextrose 5 % in water, 100 mL/hr sodium chloride 0.9 %, 20 mL/hr sodium chloride 0.9 %, 75 mL/hr, Last Rate: 75 mL/hr (02/21/24 0004) As Needed: acetaminophen dextrose dextrose 5 % in water dextrose 50 % in water (D50W) glucagon (human recombinant) magnesium sulfate magnesium sulfate ondansetron potassium chloride OR potassium chloride sennosides-docusate sodium sodium chloride sodium chloride sodium chloride 0.9 % Allergies: Bactrim [sulfamethoxazole-trimethoprim], Penicillins, Sulfamethoxazole, Sulfanilamide, Trimethoprim, Aspirin, Avelox [moxifloxacin], Azithromycin, Cefzil [cefprozil], Cephalexin, Ciprofloxacin, Percocet [oxycodone-acetaminophen], and Adhesive Labs Recent Results (from the past 24 hour(s)) Wound culture superficial includes gram stain Collection Time: 02/20/24 3:07 PM Specimen: Wound Swab RIGHT~LOWER~ABDOMEN~SUPERIOR Result Value Ref Range Specimen Notes SPECIMEN 1 Gram Stain Result 10 to 24 WHITE BLOOD CELLS/LPF Gram Stain Result 0 to 1 SQUAMOUS EPITHELIAL CELLS/LPF Gram Stain Result FEW GRAM POSITIVE COCCI Gram Stain Result RARE GRAM NEGATIVE RODS Culture PENDING CBC auto differential Collection Time: 02/20/24 3:52 PM Result Value Ref Range White Blood Cells 8.8 4.0 - 11.0 X10E9/L RBC count 3.79 (L) 3.80 - 5.20 X10E12/L Hemoglobin 11.9 11.7 - 15.5 g/dL Hematocrit 35.8 35 - 47 % MCV 94 80 - 100 fL MCH 31.4 27 - 34 pg MCHC 33.2 32 - 36 g/dL RDW 14.2 11.5 - 15.0 % Platelets 328 150 - 450 X10E9/L MPV 10.2 7 - 12 fL % neutrophils 69.8 % % lymphocytes 19.0 % % monocytes 8.5 % % eosinophils 2.1 % % Basophils 0.6 % Neutrophils Absolute (A) 6.2 1.5 - 6.6 X10E9/L Lymphocytes Absolute 1.7 1.0 - 3.5 X10E9/L Monocytes Absolute 0.8 0 - 0.9 X10E9/L Eosinophils Absolute 0.2 0.0 - 0.4 X10E9/L Basophils Absolute 0.1 0.0 - 0.2 X10E9/L Comprehensive metabolic panel Collection Time: 02/20/24 3:52 PM Result Value Ref Range Sodium 139 134 - 146 mmol/L Potassium, Bld 4.3 3.5 - 5.0 mmol/L Chloride 105 98 - 109 mmol/L CO2 24 22 - 32 mmol/L Anion gap 10 5 - 15 mmol/L BUN 50 (H) 5 - 23 mg/dL Creatinine 1.86 (H) 0.40 - 1.00 mg/dL Glucose 134 (H) 65 - 99 mg/dL Calcium 9.5 8.5 - 10.5 mg/dL Total Protein 8.4 (H) 6.0 - 8.0 g/dL Albumin 3.6 3.2 - 5.3 g/dL Alkaline Phosphatase 48 39 - 130 U/L AST 32 0 - 41 U/L ALT 21 0 - 31 U/L Total bilirubin 0.5 0.3 - 1.2 mg/dL eGFR (CKD-EPI)non-race dependent 32 (L) >59 ml/min/1.73sq.m C-reactive protein Collection Time: 02/20/24 3:52 PM Result Value Ref Range CRP 10.2 (H) 0.000 - 0.744 mg/dL Magnesium Collection Time: 02/20/24 3:52 PM Result Value Ref Range Magnesium 2.3 1.8 - 2.6 mg/dL Lactate w/ Reflex Collection Time: 02/20/24 3:52 PM Result Value Ref Range Lactate w/ Reflex 1.2 0.4 - 2.0 mmol/L B-type natriuretic peptide Collection Time: 02/20/24 3:52 PM Result Value Ref Range BNP 41 <100.0 pg/mL Wound culture superficial includes gram stain Collection Time: 02/20/24 5:10 PM Specimen: Wound Swab RIGHT~LOWER~ABDOMEN~INFERIOER Result Value Ref Range Specimen Notes SPECIMEN 2 Gram Stain Result >25 WHITE BLOOD CELLS/LPF Gram Stain Result 0 to 1 SQUAMOUS EPITHELIAL CELLS/LPF Gram Stain Result MODERATE GRAM POSITIVE COCCI Gram Stain Result FEW GRAM NEGATIVE RODS Gram Stain Result RARE YEAST Culture PENDING Bedside Glucose *Place/Obtain serum glucose if >500(>600 MRH) per glucometer. Collection Time: 02/20/24 9:51 PM Result Value Ref Range Bedside glucose 116 (H) 65 - 99 mg/dL Comprehensive metabolic panel Collection Time: 02/21/24 4:38 AM Result Value Ref Range Sodium 140 134 - 146 mmol/L Potassium, Bld 4.2 3.5 - 5.0 mmol/L Chloride 107 98 - 109 mmol/L CO2 23 22 - 32 mmol/L Anion gap 10 5 - 15 mmol/L BUN 45 (H) 5 - 23 mg/dL Creatinine 1.68 (H) 0.40 - 1.00 mg/dL Glucose 142 (H) 65 - 99 mg/dL Calcium 8.4 (L) 8.5 - 10.5 mg/dL Total Protein 6.5 6.0 - 8.0 g/dL Albumin 2.7 (L) 3.2 - 5.3 g/dL Alkaline Phosphatase 35 (L) 39 - 130 U/L AST 23 0 - 41 U/L ALT 17 0 - 31 U/L Total bilirubin 0.7 0.3 - 1.2 mg/dL eGFR (CKD-EPI)non-race dependent 36 (L) >59 ml/min/1.73sq.m Magnesium Collection Time: 02/21/24 4:38 AM Result Value Ref Range Magnesium 2.3 1.8 - 2.6 mg/dL CBC auto differential Collection Time: 02/21/24 4:38 AM Result Value Ref Range White Blood Cells 7.0 4.0 - 11.0 X10E9/L RBC count 3.00 (L) 3.80 - 5.20 X10E12/L Hemoglobin 9.4 (L) 11.7 - 15.5 g/dL Hematocrit 28.4 (L) 35 - 47 % MCV 95 80 - 100 fL MCH 31.2 27 - 34 pg MCHC 32.9 32 - 36 g/dL RDW 14.0 11.5 - 15.0 % Platelets 247 150 - 450 X10E9/L MPV 9.9 7 - 12 fL % neutrophils 57.0 % % lymphocytes 28.7 % % monocytes 10.8 % % eosinophils 3.0 % % Basophils 0.5 % Neutrophils Absolute (A) 4.0 1.5 - 6.6 X10E9/L Lymphocytes Absolute 2.0 1.0 - 3.5 X10E9/L Monocytes Absolute 0.8 0 - 0.9 X10E9/L Eosinophils Absolute 0.2 0.0 - 0.4 X10E9/L Basophils Absolute 0.0 0.0 - 0.2 X10E9/L Radiology No results found. HOSPITAL PROBLEM LIST Principal Problem: Wound infection Active Problems: Acquired hypothyroidism Diabetic neuropathy ([facility]) Hyperlipidemia Obesity, morbid ([facility]) Supraventricular tachycardia ([facility]) Type 2 diabetes mellitus without complication ([facility]) Stage 2 chronic kidney disease ASSESSMENT & PLAN Cellulitis of abdomen -Infectious Disease, Wound Care and General surgery consulted -Currently on vancomycin, previously on doxycycline outpatient -Wound culture, blood culture pending -Mult allergies SVT/HTN -Follows with cardio -On lopressor and plavix -Holding lisinopril for acute kidney injury Acute kidney injury on CKD stage 2 -Stated her baseline GFR is approximately 45 -Continue gentle fluids Diabetes -Hemoglobin A1c 9.6 -ISS Hypothyroidism -check tsh -cont levothyroxine Asthma -on room air -cont home inhalers VTE -heparin sub q DC planning -from home Leticia Dong APRN-MEDICAL PSYCHOTHERAPIST 02/21/2024 9:05 AM [facility] 7AM-7PM (all facilities): EpicChat or page through [employer]. 7PM-7AM ([facility], [facility] and Inpatient Rehab): EpicChat or page, [phone]. 7PM-7AM ([place], [place], [place], [place] and [facility] Rehab): EpicChat or page through [employer]. Leticia Dong APRN-MEDICAL PSYCHOTHERAPIST 02/21/24 1412 Physician Attestation I, Ghanshyam Mayberry MD, personally performed a face to face diagnostic evaluation on this patient. I have reviewed the note authored by the advance practice provider including history, review of systems,physical examination,medical decision making and agree with the assessment and plan as written. I have seen and evaluated the patient, I have repeated the ramos portions of the physical exam and concur with the IRINEO findings. I have reviewed all laboratory findings and imaging reports/films. I agree with the plan as noted. [facility]09-21-2024 Consult note* Nicholas Figueroa RPH - 02/21/2024 8:38 AM EDTAssociated Order(s): PHARMACY TO DOSE VANCO Consult for pharmacy to dose Vancomycin for cellulitis, abdominal wounds. A dose of 1,750mg was gvien at 2034 on 02-20-24. Calculations WT= 125.8kg VD= 88.06L Crcl= 29.9ml/min CL- 1.794L/HR Ke= 0.0204hrs- T 1/2= 34hrs Will review tomorrow mornings BUN/Scr and clinical progress before determining dose. Looks like dose will be 1,500mg-1,750mg every 36-48hrs and would be due tomorrow morning at earliest. Nicholas Figueroa PharmD [facility]09-21-2024 Plan of care note* Plan of Care - Mikki Street RN - 02/21/2024 8:11 AM EDT Problem: Pain Goal: Patient goal is pain score less than 4, able to rest, and participant in treatment plan as appropriate Description: INTERVENTIONS: 1. Encourage patient or legal outside sales representative insurance to report early pain and ask for pain medicine when needed 2. Assess pain using appropriate pain scale and include the scale used when documenting 3. Administer analgesics based on type and severity of pain and evaluate response within appropriate time frame 4. Implement non-pharmacological measures as appropriate and evaluate response 5. Consider cultural and social influences on pain and pain management 6. Notify LIP if interventions ineffective or patient reports new pain 7. Monitor vital signs including pulse ox, end-tidal CO2 based on pain intervention 8. Reassess pain per policy 9. Teach patient or legal outside sales representative insurance interventions for comforting Outcome: Progressing Note: Evaluation of progress towards goal: monitor and treat pain as ordered Problem: Safety Goal: Patient will be injury free during hospitalization Description: INTERVENTIONS: 1. Assess patient's risk for falls and implement fall prevention plan of care per policy 2. Provide and maintain a safe environment 3. Proper use of double Identifiers 4. Medication administration using the 5 rights 5. Hand hygiene 6. Specimens are labeled at the bedside 7. Instruct patient/ patient outside sales representative insurance about use of safety devices 8. Include patient/ patient outside sales representative insurance in decisions related to safety Outcome: Progressing Note: Evaluation of progress towards goal: remains free from fall/ injury [facility]09-20-2024 Plan of care note* Plan of Care - Meliza Ramires RN - 02/20/2024 9:59 PM EDT Problem: Safety Goal: Patient will be injury free during hospitalization Description: INTERVENTIONS: 1. Assess patient's risk for falls and implement fall prevention plan of care per policy 2. Provide and maintain a safe environment 3. Proper use of double Identifiers 4. Medication administration using the 5 rights 5. Hand hygiene 6. Specimens are labeled at the bedside 7. Instruct patient/ patient outside sales representative insurance about use of safety devices 8. Include patient/ patient outside sales representative insurance in decisions related to safety Note: Evaluation of progress towards goal: Safety maintained Problem: Knowledge Deficit Goal: Patient/patient outside sales representative insurance demonstrates understanding of disease process, treatment plan,medications, and discharge instructions Description: INTERVENTIONS 1. Complete learning assessment and assess knowledge base 2. Provide teaching at level of understanding 3. Provide teaching via preferred learning method(s) Note: Evaluation of progress towards goal: In agreement with plan of care Problem: Glucose Imbalance Goal: Clinical indication of glucose balance is achieved Description: Patient's goal is: INTERVENTIONS 1. Monitor blood glucose levels as ordered 2. Administer medications as ordered 3. Notify physician of ineffective treatment plan Note: Evaluation of progress towards goal: Glucose balance on going [facility] [id number] Physician Emergency department Note* Antonio Parra DO - 02/20/2024 4:12 PM EDT Images from the original note were not included. [facility] ER Location [facility] ED CHIEF COMPLAINT Chief Complaint Patient presents with Wound Check HISTORY OF PRESENT ILLNESS Mary Jane Foy [facility] From Triage:Aiden Hickman RN (Registered Nurse) Date of Service: 02/20/24 1508 Addendum Sent from wound care of cellulitis. Pt has wound to RLQ of abdomen, pt reports purulent discharge. Has had fevers for the past 6 days This is a 53-year-old female who comes in with a complaint of left lower quadrant abdominal wounds that have been having some pustular discharge. Patient states she has been running some fevers all week. She got bit by to spiders and apparently the wounds have been getting worse. 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 She is kind of hoping not to get admitted. She is a diabetic her blood sugar has been running in the 180s. No nausea or vomiting.. Nurses Notes reviewed and I agree except as noted in the HPI. REVIEW OF SYSTEMS Review of Systems Constitutional: Negative. HENT: Negative. Eyes: Negative. Respiratory: Negative. Cardiovascular: Negative. Gastrointestinal: Negative. Endocrine: Negative. Genitourinary: Negative. Musculoskeletal: Negative. Skin: Positive for wound. Allergic/Immunologic: Negative. Neurological: Negative. Hematological: Negative. Psychiatric/Behavioral: Negative. PAST MEDICAL HISTORY Past Medical History: Diagnosis Date Anemia Asthma Diabetes type 2, controlled ([facility]) GI problem Herniation of right side of L4-L5 intervertebral disc High cholesterol Hypertension Hypothyroidism Nerve damage in feet and legs Osteoarthritis Ovarian cancer ([facility]) SURGICAL HISTORY Past Surgical History: Procedure Laterality Date APPENDECTOMY CHOLECYSTECTOMY DISCECTOMY KNEE ARTHROSCOPY Right NASAL SEPTUM SURGERY REPLACEMENT TOTAL KNEE Right SHOULDER HARDWARE REMOVAL TONSILLECTOMY CURRENT MEDICATIONS Medication List None ALLERGIES Allergies Allergen Reactions Bactrim [Sulfamethoxazole-Trimethoprim] Anaphylaxis Penicillins Anaphylaxis Sulfamethoxazole Anaphylaxis and Swelling Sulfanilamide Anaphylaxis Trimethoprim Anaphylaxis Aspirin Vomiting Avelox [Moxifloxacin] Hives Azithromycin Hives Cefzil [Cefprozil] Hives Cephalexin Hives Ciprofloxacin Hives Percocet [Oxycodone-Acetaminophen] Vomiting Adhesive Rash FAMILY HISTORY Family History Problem Relation Age of Onset Arthritis Mother Asthma Mother Hypertension Mother Hyperlipidemia Mother Stroke Mother Arthritis Father Diabetes Father Hypertension Father Alzheimer's disease Father SOCIAL HISTORY Social History Socioeconomic History Marital status: Single Tobacco Use Smoking status: Never Smokeless tobacco: Never Vaping Use Vaping status: Never Used Substance and Sexual Activity Alcohol use: Not Currently Drug use: Not Currently Sexual activity: Defer Social Determinants of Health Food Insecurity: No Food Insecurity (02/20/2024) Hunger Screening Food Insecurity - Worry: Never True Food Insecurity - Inability: Never True Received from [facility] PHYSICAL EXAM INITIAL VITALS: ED Triage Vitals [02/20/24 1505] Temp Heart Rate Resp BP SpO2 37.1 C (98.8 F) 99 20 154/68 95 % Temp Source Heart Rate Source Patient Position BP Location FiO2 (%) Oral -- -- -- -- Physical Exam Constitutional She is oriented to person, place, and time. She appears well- developed and well-nourished. HENT Head Normocephalic and atraumatic. Eyes: EOM are normal. Pupils are equal, round, and reactive to light. Neck Normal range of motion. Neck supple. Pulmonary/Chest: Effort normal. Musculoskeletal: General: Normal range of motion. Cervical back: Normal range of motion and neck supple. Neurological She is alert and oriented to person, place, and time. Skin: Skin is warm. Please see image below for details Psychiatric: She has a normal mood and affect. Her behavior is normal. Judgment and thought content normal. Proceedure: Procedures DIFFERENTIAL DIAGNOSIS: Active Problems: * No active hospital problems. * Wound infection Cellulitis *All differentials are some of the many considered and this list is not complete or all inclusive. Those items stricken out have been ruled out using current eval. DIAGNOSTIC RESULTS EKG: All EKG's are interpreted by the Emergency Department Physician who either signs or Co-signs this chart in the absence of a apprentice painter neckties. Please see proccedure section. RADIOLOGY: non-plain film images(s) such as CT, Ultrasound and MRI are read by the radiologist. The patient had a view X-ray of the which demonstrates [] Visualized and interpreted by me [] Radiologist's Wet Read Report Reviewed [] Discussed with Radiologist. No results found. LABS: Labs Reviewed - No data to display EMERGENCY DEPARTMENT COURSE: Vitals: Blood Pressure 154/68 Pulse 99 Temperature 37.1 C (98.8 F) (Oral) Respiration 20 Height 157.5 cm (5' 2 ) Weight 118.4 kg (261 lb) Oxygen Saturation 95% Body Mass Index 47.74 kg/m CrCl cannot be calculated (No successful lab value found.). 4:24 p.m. with these wounds looks like there some saponification ongoing. I think that she does have mild degree of cellulitis. Definitely I am going to go ahead and get some blood work on her. 5:32 p.m. patient briefed on results plan is for admission. Doxycycline ordered. Hospitalist in agreement. INCIDENTAL FINDINGS None CRITICAL CARE: None CONSULTS: Consulting Providers Not on file PROCEDURES: None FINAL IMPRESSION Final diagnoses: None DISPOSITION/PLAN No follow-up provider specified. Pt aware to return to the ER if symptoms change or change for the worse. Pt aware to call if any questions. Pt has been instructed to keep medications away from the public at all times. Pt aware not to operate machinery of any kind while taking pain meds, nerve pills or muscle relaxers. PATIENT REFERRED TO: No follow-up provider specified. DISCHARGE MEDICATIONS: Medication List None MDM Reviewed: previous chart, nursing note and vitals (Please note that portions of this note were completed with a voice recognition program. Efforts were made to edit the dictations but occasionally words are mis-transcribed.) Antonio Parra DO 02/20/2024 4:12 PM This note was created with the assistance of a speech-recognition program. Although the intention is to generate a document that actually reflects the content of the visit, no guarantees can be provided that every mistake has been identified and corrected by editing. Antonio Parra DO 02/20/24 1614 Antonio Parra DO 02/20/24 1626 Antonio Parra DO 02/20/[address] [facility]09-20-2024 Emergency department Note* Antonio Parra DO - 02/20/2024 4:12 PM EDT Images from the original note were not included. [facility] ER Location [facility] ED CHIEF COMPLAINT Chief Complaint Patient presents with Wound Check HISTORY OF PRESENT ILLNESS Authumn D [facility] From Triage:Aiden Hickman RN (Registered Nurse) Date of Service: 02/20/24 7144 Addendum Sent from wound care of cellulitis. Pt has wound to RLQ of abdomen, pt reports purulent discharge. Has had fevers for the past 6 days This is a 53-year-old female who comes in with a complaint of left lower quadrant abdominal wounds that have been having some pustular discharge. Patient states she has been running some fevers all week. She got bit by to spiders and apparently the wounds have been getting worse. 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 She is kind of hoping not to get admitted. She is a diabetic her blood sugar has been running in the 180s. No nausea or vomiting.. Nurses Notes reviewed and I agree except as noted in the HPI. REVIEW OF SYSTEMS Review of Systems Constitutional: Negative. HENT: Negative. Eyes: Negative. Respiratory: Negative. Cardiovascular: Negative. Gastrointestinal: Negative. Endocrine: Negative. Genitourinary: Negative. Musculoskeletal: Negative. Skin: Positive for wound. Allergic/Immunologic: Negative. Neurological: Negative. Hematological: Negative. Psychiatric/Behavioral: Negative. PAST MEDICAL HISTORY Past Medical History: Diagnosis Date Anemia Asthma Diabetes type 2, controlled ([facility]) GI problem Herniation of right side of L4-L5 intervertebral disc High cholesterol Hypertension Hypothyroidism Nerve damage in feet and legs Osteoarthritis Ovarian cancer ([facility]) SURGICAL HISTORY Past Surgical History: Procedure Laterality Date APPENDECTOMY CHOLECYSTECTOMY DISCECTOMY KNEE ARTHROSCOPY Right NASAL SEPTUM SURGERY REPLACEMENT TOTAL KNEE Right SHOULDER HARDWARE REMOVAL TONSILLECTOMY CURRENT MEDICATIONS Medication List None ALLERGIES Allergies Allergen Reactions Bactrim [Sulfamethoxazole-Trimethoprim] Anaphylaxis Penicillins Anaphylaxis Sulfamethoxazole Anaphylaxis and Swelling Sulfanilamide Anaphylaxis Trimethoprim Anaphylaxis Aspirin Vomiting Avelox [Moxifloxacin] Hives Azithromycin Hives Cefzil [Cefprozil] Hives Cephalexin Hives Ciprofloxacin Hives Percocet [Oxycodone-Acetaminophen] Vomiting Adhesive Rash FAMILY HISTORY Family History Problem Relation Age of Onset Arthritis Mother Asthma Mother Hypertension Mother Hyperlipidemia Mother Stroke Mother Arthritis Father Diabetes Father Hypertension Father Alzheimer's disease Father SOCIAL HISTORY Social History Socioeconomic History Marital status: Single Tobacco Use Smoking status: Never Smokeless tobacco: Never Vaping Use Vaping status: Never Used Substance and Sexual Activity Alcohol use: Not Currently Drug use: Not Currently Sexual activity: Defer Social Determinants of Health Food Insecurity: No Food Insecurity (02/20/2024) Hunger Screening Food Insecurity - Worry: Never True Food Insecurity - Inability: Never True Received from [facility] PHYSICAL EXAM INITIAL VITALS: ED Triage Vitals [02/20/24 1505] Temp Heart Rate Resp BP SpO2 37.1 C (98.8 F) 99 20 154/68 95 % Temp Source Heart Rate Source Patient Position BP Location FiO2 (%) Oral -- -- -- -- Physical Exam Constitutional She is oriented to person, place, and time. She appears well- developed and well-nourished. HENT Head Normocephalic and atraumatic. Eyes: EOM are normal. Pupils are equal, round, and reactive to light. Neck Normal range of motion. Neck supple. Pulmonary/Chest: Effort normal. Musculoskeletal: General: Normal range of motion. Cervical back: Normal range of motion and neck supple. Neurological She is alert and oriented to person, place, and time. Skin: Skin is warm. Please see image below for details Psychiatric: She has a normal mood and affect. Her behavior is normal. Judgment and thought content normal. Proceedure: Procedures DIFFERENTIAL DIAGNOSIS: Active Problems: * No active hospital problems. * Wound infection Cellulitis *All differentials are some of the many considered and this list is not complete or all inclusive. Those items stricken out have been ruled out using current eval. DIAGNOSTIC RESULTS EKG: All EKG's are interpreted by the Emergency Department Physician who either signs or Co-signs this chart in the absence of a apprentice painter neckties. Please see proccedure section. RADIOLOGY: non-plain film images(s) such as CT, Ultrasound and MRI are read by the radiologist. The patient had a view X-ray of the which demonstrates [] Visualized and interpreted by me [] Radiologist's Wet Read Report Reviewed [] Discussed with Radiologist. No results found. LABS: Labs Reviewed - No data to display EMERGENCY DEPARTMENT COURSE: Vitals: Blood Pressure 154/68 Pulse 99 Temperature 37.1 C (98.8 F) (Oral) Respiration 20 Height 157.5 cm (5' 2 ) Weight 118.4 kg (261 lb) Oxygen Saturation 95% Body Mass Index 47.74 kg/m CrCl cannot be calculated (No successful lab value found.). 4:24 p.m. with these wounds looks like there some saponification ongoing. I think that she does have mild degree of cellulitis. Definitely I am going to go ahead and get some blood work on her. 5:32 p.m. patient briefed on results plan is for admission. Doxycycline ordered. Hospitalist in agreement. INCIDENTAL FINDINGS None CRITICAL CARE: None CONSULTS: Consulting Providers Not on file PROCEDURES: None FINAL IMPRESSION Final diagnoses: None DISPOSITION/PLAN No follow-up provider specified. Pt aware to return to the ER if symptoms change or change for the worse. Pt aware to call if any questions. Pt has been instructed to keep medications away from the public at all times. Pt aware not to operate machinery of any kind while taking pain meds, nerve pills or muscle relaxers. PATIENT REFERRED TO: No follow-up provider specified. DISCHARGE MEDICATIONS: Medication List None MDM Reviewed: previous chart, nursing note and vitals (Please note that portions of this note were completed with a voice recognition program. Efforts were made to edit the dictations but occasionally words are mis-transcribed.) Antonio Parra DO 02/20/2024 4:12 PM This note was created with the assistance of a speech-recognition program. Although the intention is to generate a document that actually reflects the content of the visit, no guarantees can be provided that every mistake has been identified and corrected by editing. Antonio Parra DO 02/20/24 1614 Antonio Parra, 02/20/24 1626 Antonio Parra, 02/20/24 1734 * Aiden Hickman RN - 02/20/2024 3:08 PM EDT Sent from wound care of cellulitis. Pt has wound to RLQ of abdomen, pt reports purulent discharge. Has had fevers for the past 6 days [facility] Emergency department Triage note* Aiden Hickman RN - 02/20/2024 3:08 PM EDT Sent from wound care of cellulitis. Pt has wound to RLQ of abdomen, pt reports purulent discharge. Has had fevers for the past [address] [facility]09-20-2024 History of Present illness Narrative* Fiorella Martinez RN - 02/20/2024 1:40 PM EDT Sent patient down to ER for evaluation * SHAYLA Casanova - 02/20/2024 1:40 PM EDT Presents to wound care clinic reporting elevated temperature, reports she feels listless Necrotic abdominal wounds Patient reports increased wound drainage and pain Patient transferred to the emergency room for evaluation S: ill appearing female, reports temperature, General malaise, increased wound drainage B: history of right lower quadrant abdominal wounds, reports being bitten by spider, patient was bitten by a spider early January 20, 2024. Culture shows rare lady parapsilosis A: Necrotic looking abdominal wounds, tachycardia pulse 111 R: Transferred to ER, cellulitis of abdominal wall Report called to triage - SHAYLA CASANOVA 02/20/24 2:48 PM SHAYLA Casanova 02/20/24 1450 documented [facility] [address] [facility] Instructions* Patient Instructions* Fiorella Martinez RN - 02/20/2024 1:40 PM EDT Wound culture was obtained in clinic today, 01/30/24. Wound Management Treatment Plan Wound Location(s): right lateral proximal (upper) abdomen, right lateral distal (lower) abdomen HOW TO CARE FOR YOUR WOUND The following should be performed Daily and as needed. STEP 1: Cleanse wound with Wound cleanser. STEP 2: Place a moistened Vashe gauze into wound beds. A sample of Vashe solution was given to you at clinic 01/30/24) STEP 3: Apply xeroform into wound bed STEP 4: Wipe surrounding wound skin with skin prep pad, this will help protect your skin and help the foam dressing to adhere. STEP 5: Cover wound with Foam with silicone border Apply vaseline to any red irritated areas of skin to outer abdomen. ACTIVITY: Avoid direct pressure to wound(s) at all times and Reposition at least every 2 hours NUTRITION: High protein diet SKIN CARE: keep wound covered at all times SWELLING CONTROL: Avoid standing for prolonged periods of time. Elevate legs whenever sitting to level of heart/hips or higher. ITEMS TO FOLLOW UP ON: None Length Width Depth Wound 01/30/24 1 Abdomen Right Lateral;Proximal-Wound Length (cm): 3 cm Wound 01/30/24 2 Abdomen Right Lateral;Distal-Wound Length (cm): 3.5 cm Wound 01/30/24 1 Abdomen Right Lateral;Proximal-Wound Width (cm): 3.2 cm Wound 01/30/24 2 Abdomen Right Lateral;Distal-Wound Width (cm): 9 cm Wound 01/30/24 1 Abdomen RightLateral;Proximal-Wound Depth (cm): 1.1 cm Wound 01/30/24 2 Abdomen Right Lateral;Distal-Wound Depth (cm): 0.6 cm Wound drainage Type Description large Serosanginous Serosanguinous, cuello, yellow documented in this encounterMer[facility] History of Present illness Narrative* Jayleen Nicole, LABORER ROAD-MEDICAL PSYCHOTHERAPIST - 02/13/2024 9:00 AM EDT Images from the original note were not included. Wound Care Progress Note Patient: Mary Jane Foy [facility] Date of : 1970 Chief Complaint: Nonhealing abdominal wounds, follow up Subjective/HPI: Mary Jane is a 53 y.o. female who present to [facility] for evaluation of 2 ulcer(s) on the right lower abdomen. Patient established with wound clinic 01/30/2024. Current daily wound care includes: daily vashe soaks, covering wound bed with Xeroform and dry dressing, change daily. Patientreports she was bitten by a brown usha spider approximately 1 month ago. She has been treated withoral antibiotics. Patient reports there are several spiders in her apartment building and other residents have been bitten. Measurable wound changes: Increase wound measurement #1, decrease wound measurement #2 Patient accompanied by: Self, arrives in wheelchair Nutritional screen shows patient does take in three servings of protein per day. Patient does not deny fever, chills, sweats or other symptoms of infection. Prescribed antibiotics:Taking doxycycline as prescribed. Patient did not start Diflucan as prescribed. Review of wound culture: 01/30/2024 Component Gram Stain Result 1 to 9 WHITE BLOOD CELLS/LPF 0 SQUAMOUS EPITHELIAL CELLS/LPF MANY GRAM POSITIVE COCCI IN CLUSTERS Culture RARE LADY PARAPSILOSIS : CLINICAL CORRELATION RECOMMENDED. MAY REPRESENT COMMENSAL ERIC. Abnormal ALONG WITH MANY NORMAL SKIN ERIC Today's reported Blood sugar: 198 No results found for: HGBA1C Tobacco:denied - never a smoker Contributing comorbid conditions: Type 2 diabetes insulin dependent, BM I 49.06 Patient Active Problem List Diagnosis Acquired hypothyroidism Allergic rhinitis due to allergen Asthma without status asthmaticus Chronic sinusitis Diabetic neuropathy ([facility]) Gastroparesis Hyperlipidemia Lobular panniculitis Obesity, morbid ([facility]) Other chronic pain Supraventricular tachycardia ([facility]) Type 2 diabetes mellitus without complication ([facility]) Non-pressure chronic ulcer of skin of 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 ([facility]) Past Medical History: Diagnosis Date Anemia Asthma Diabetes type 2, controlled ([facility]) GI problem Herniation of right side of L4-L5 intervertebral disc High cholesterol Hypertension Hypothyroidism Nerve damage in feet and legs Osteoarthritis Ovarian cancer ([facility]) Past Surgical History: Procedure Laterality Date APPENDECTOMY CHOLECYSTECTOMY DISCECTOMY KNEE ARTHROSCOPY Right NASAL SEPTUM SURGERY REPLACEMENT TOTAL KNEE Right SHOULDER HARDWARE REMOVAL TONSILLECTOMY Current Outpatient Medications Medication Sig Dispense Refill albuterol (PROVENTIL HFA;VENTOLIN HFA) 90 mcg/actuation inhaler Inhale 2 puffs every 4 (four) hoursas needed for shortness of breath. allopurinoL (ZYLOPRIM) 300 mg tablet Take 1 tablet (300 mg total) by mouth in the morning. ascorbic acid, vitamin C, (ascorbic acid) 250 mg tablet,chewable Chew and swallow. biotin 10,000 mcg capsule Take by mouth. cholecalciferol, vitamin D3, 2,000 units capsule Take 1 capsule (2,000 Units total) by mouth in themorning. cinnamon bark (CINNAMON) 500 mg capsule Take 4 capsules (2,000 mg total) by mouth in the morning. cyclobenzaprine (FLEXERIL) 10 mg tablet doxycycline (ADOXA) 100 MG tablet Take 1 tablet (100 mg total) by mouth in the morning and 1 tablet(100 mg total) before bedtime. Do all this for 14 days. 28 tablet 0 fenofibrate (LOFIBRA) 160 mg tablet ferrous sulfate (IRON) 325 (65 FE) mg tablet Take 1 tablet (325 mg total) by mouth daily with breakfast. fexofenadine (ORAL) 180 mg tablet Take 1 tablet (180 mg total) by mouth in the morning. fluticasone (FLONASE) 50 mcg/actuation nasal spray furosemide (LASIX) 40 mg tablet HUMULIN R U-500, CONC, KWIKPEN injection Inject 150 Units of U-500 under the skin in the morning and 150 Units of U-500 at noon and 150 Units of U-500 in the evening and 150 Units of U-500 before bedtime. 150-190 units QID. inulin (FIBER GUMMIES) 2 gram tablet,chewable Chew and swallow. [id number] 449-93-32-50 mg capsule Take by mouth. Lactobacillus acidophilus (ACIDOPHILUS) capsule Take 1 capsule by mouth in the morning and 1 capsule at noon and 1 capsule in the evening. Take with meals. levothyroxine (SYNTHROID, LEVOTHROID) 150 MCG tablet LYRICA 75 mg capsule metoprolol tartrate (LOPRESSOR) 50 mg tablet montelukast (SINGULAIR) 10 mg tablet multivitamin tablet,chewable Chew 2 capsules and swallow. ondansetron ODT (ZOFRAN-ODT) 4 mg disintegrating tablet pantoprazole (PROTONIX) 40 mg EC tablet SYMBICORT 160-4.5 mcg/actuation inhaler tiotropium bromide 1.25 mcg/actuation mist Inhale 2 puffs in the morning. TRULICITY 4.5 mg/0.5 mL pen injector Inject 4.5 mg under the skin once a week. Sundays vitamin B complex (SUPER B-50 COMPLEX PLUS ORAL) Take by mouth. vitamin E, dl,tocopheryl acet, (VITAMIN E, DL, ACETATE,) 400 unit capsule Take 1 capsule (400 Unitstotal) by mouth in the morning. No current facility-administered medications for this visit. Allergies Allergen Reactions Bactrim [Sulfamethoxazole-Trimethoprim] Anaphylaxis Penicillins Anaphylaxis Sulfamethoxazole Anaphylaxis and Swelling Sulfanilamide Anaphylaxis Trimethoprim Anaphylaxis Aspirin Vomiting Avelox [Moxifloxacin] Hives Azithromycin Hives Cefzil [Cefprozil] Hives Cephalexin Hives Ciprofloxacin Hives Percocet [Oxycodone-Acetaminophen] Vomiting Adhesive Rash The following portions of the patient's history were reviewed and updated as appropriate: allergies, current medications, past family history, past medical history, past social history, past surgicalhistory, problem list, and medication reconciliation was completed including current medication andpost discharge medication. PAIN:5/10 with touching Review of Systems Constitutional: Negative. Negative for appetite change, chills and fever. HENT: Negative. Negative for trouble swallowing. Eyes: Negative. Respiratory: Negative. Negative for cough, shortness of breath and stridor. Cardiovascular: Negative. Negative for chest pain, palpitations and leg swelling. Gastrointestinal: Negative. Negative for abdominal distention, abdominal pain, nausea and vomiting. Genitourinary: Negative. Negative for dysuria, frequency and urgency. Musculoskeletal: Positive for arthralgias, back pain and gait problem. Skin: Positive for color change and wound. Neurological: Positive for numbness. Negative for weakness. Objective: Vitals: 02/13/24919 BP: 140/70 Pulse: 80 Resp: 18 Temp: 37 C (98.6 F) Physical Exam Nursing note reviewed. Constitutional: Appearance: She is well-developed. HENT: Head: Normocephalic and atraumatic. Cardiovascular: Rate and Rhythm: Normal rate and regular rhythm. Heart sounds: No murmur heard. No friction rub. Pulmonary: Effort: No respiratory distress. Breath sounds: Normal breath sounds. No wheezing. Abdominal: General: Bowel sounds are normal. Palpations: Abdomen is soft. Musculoskeletal: General: Normal range of motion. Cervical back: Normal range of motion. Skin: General: Skin is warm and dry. Neurological: Mental Status: She is alert and oriented to person, place, and time. Wound Assessment: Wound 01/30/24 1 Abdomen Right Lateral;Proximal (Active) Wound Image Pre debridement Post debridement 02/13/24 0948 Site Assessment Yellow;Moist;[place];Red;Brown 02/13/24 0922 Molly-wound Assessment Blanchable erythema;Red 09/13/24 0922 Wound Length (cm) 2.7 cm 02/13/24947 Wound Width (cm) 4.1 cm 02/13/24947 Wound Surface Area (cm^2) 11.07 cm^2 02/13/24947 Wound Depth (cm) 0.2 cm 02/13/24947 Wound Volume (cm^3) 2.214 cm^3 02/13/24947 Change in Wound Size % 6.97 02/13/24947 Drainage Description Serosanguineous;Yellow;Cu[place] 02/13/24921 Drainage Amount Moderate 02/13/24921 Treatments Cleansed with;Wound cleanser;Soak with;Vashe/Hypochlorous Acid 02/13/24921 Debridement Performed? Y 02/13/24947 Type of Debridement Sharp to Subcutaneous 02/13/24947 Debridement Area (cm^2) 11.07 cm^2 02/13/24947 Dressing Type Foam;Xeroform 02/13/24947 Dressing Changed Changed 02/13/24947 Dressing Status Clean;Dry;Intact 02/13/24947 Wound Bed Granulation (%) < 25% 02/13/24921 Wound Bed Slough (%) 75% to 100% 02/13/24921 Wound 01/30/24 2 Abdomen Right Lateral;Distal (Active) Wound Image Pre debridement Post debridement 02/13/24947 Site Assessment Black;Red;[place];Yellow;[place] 02/13/24921 Molly-wound Assessment Blanchable erythema;Red 02/13/24921 Wound Length (cm) 2.5 cm 02/13/24947 Wound Width (cm) 9.1 cm 02/13/24947 Wound Surface Area (cm^2) 22.75 cm^2 02/13/24947 Wound Depth (cm) 0.6 cm 02/13/24947 Wound Volume (cm^3) 13.65 cm^3 02/13/24947 Change in Wound Size % 9.72 02/13/24947 Drainage Description Serosanguineous;Cu[place];Yellow 02/13/24921 Drainage Amount Moderate 02/13/24921 Treatments Cleansed with;Wound cleanser;Soak with;Vashe/Hypochlorous Acid 02/13/24921 Debridement Performed? Y 02/13/24947 Type of Debridement Sharp to Subcutaneous 02/13/24947 Debridement Area (cm^2) 22.75 cm^2 02/13/24947 Dressing Type Foam;Xeroform 02/13/24947 Dressing Changed Changed 02/13/24947 Dressing Status Clean;Dry;Intact 02/13/24947 Wound Bed Granulation (%) 25% to 50% 02/13/24921 Wound Bed Slough (%) 25% to 50% 02/13/24921 Wound Bed Eschar (%) < 25% 02/13/24921 Discussion: Debridement includes the removal of foreign material and/or devitalized tissue until healthy tissue is exposed. Risks, benefits and alternatives were discussed with the patient. We discussed possible complications, including infection and bleeding. Written consent was obtained prior to the procedure. Timeout procedure completed. Goals of debridement include: removal of devitalized tissue, decrease risk of infection, promote wound healing and prevent further complications. Procedure: Debridement/Procedure Level: Removal of devitalized tissue, nonviable tissue, and/or infection: Sub-q/Tissue Instrument Used: Adson, Curette, and Scissors Anesthesia Dermoplast Bleeding: Small Bleeding Control: Pressure Added Pain Control: Benzocaine 20% spray Specimen Taken: None, Total Surface Area of Debridement: 33.82 cm2 Dressing: The wound was cleansed with Vashe wound wash and a Xeroform dressing was placed in wound clinic. Patient Status: Well tolerated by patient. Assessment/Plan/Education: 1. 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 Spider bite wound, accidental or unintentional, initial encounter Vashe Use: 1) Cleanse the wound and surrounding skin with Vashe This will remove the wound debris 2) Allow to site for 10 minutes 3) Cover with xeroform gauze 4) Cover with silicone bordered foam, patient sensitive to adhesive 5) Continue prescription doxycycline 100 mg 1 p.o. b.i.d. as prescribed. 6) do not scratch area 7) will add Diflucan 200 mg one PO per day for 3 days, based on wound culture. Patient did not start. Patient instructed in Other: Chronic wounds care to abdomen. Patient verbalize ability to perform wound care. Patient verbalized understanding. We will continue to follow closely to avoid any complications or infection. Our short term goal is wound compliance. Our terminologist goal is wound closure. The patient was taught to watch for S/S of infection (redness, pus, pain, increased swelling, chills or fever) and to call the PCP or wound care clinic if such occurs. The patient was educated on offloading the area by avoiding direct pressure to the wound bed. Education as well as the pathophysiology of the disease process was provided on infection, edema, necrotic tissue and its relationship tononhealing wounds. Education was also provided on treatment plan. Patient verbalized understanding. Follow up wound clinic in 1 week. Instructed to contact wound clinic/PCP or ER should symptoms worsen. Total time spent was 24 minutes: Preparing to see the patient (e.g., review of tests) Obtaining and/or reviewing separately obtained history Performing a medically appropriate examination and/or evaluation Counseling and educating the patient/family/caregiver Ordering medications, tests, or procedures Documenting clinical information in the electronic or other health record - SHAYLA CASANOVA 02/13/24 10:28 AM Jayleen Nicole APRN, JOSE, CWLilibeth, [place] [facility]:[phone] SHAYLA Casanova 02/03/24 0812 SHAYLA Casanova 02/06/24 1500 SHAYLA Casanova 02/06/24 1542 SHAYLA Casanova 02/13/24 1036 documented in [address] [facility] Instructions* Patient Instructions* Fiorella Martinez RN - 02/13/2024 9:00 AM EDT Wound culture was obtained in clinic today, 01/30/24. Wound Management Treatment Plan Wound Location(s): right lateral proximal (upper) abdomen, right lateral distal (lower) abdomen HOW TO CARE FOR YOUR WOUND The following should be performed Daily and as needed. STEP 1: Cleanse wound with Wound cleanser. STEP 2: Place a moistened Vashe gauze into wound beds. A sample of Vashe solution was given to you at clinic 01/30/24) STEP 3: Apply xeroform into wound bed STEP 4: Wipe surrounding wound skin with skin prep pad, this will help protect your skin and help the foam dressing to adhere. STEP 5: Cover wound with Foam with silicone border Apply vaseline to any red irritated areas of skin to outer abdomen. ACTIVITY: Avoid direct pressure to wound(s) at all times and Reposition at least every 2 hours NUTRITION: High protein diet SKIN CARE: keep wound covered at all times SWELLING CONTROL: Avoid standing for prolonged periods of time. Elevate legs whenever sitting to level of heart/hips or higher. ITEMS TO FOLLOW UP ON: None Length Width Depth Wound 01/30/24 1 Abdomen Right Lateral;Proximal-Wound Length (cm): 2.7 cm Wound 01/30/24 2 Abdomen Right Lateral;Distal-Wound Length (cm): 2.5 cm Wound 01/30/24 1 Abdomen Right Lateral;Proximal-Wound Width (cm): 4.1 cm Wound 01/30/24 2 Abdomen Right Lateral;Distal-Wound Width (cm): 9.1 cm Wound 01/30/24 1 Abdomen Right Lateral;Proximal-Wound Depth (cm): 0.5 cm Wound 01/30/24 2 Abdomen Right Lateral;Distal-Wound Depth (cm): 0.6 cm Wound drainage Type Description large Serosanginous Serosanguinous, cuello, yellow documented in this [facility] History of Present illness Narrative* Jayleen Nicole, LAB[employer]ICAL PSYCHOTHERAPIST - 02/06/2024 1:40 PM EDT Images from the original note were not included. Wound Care Progress Note Patient: Mary Jane Foy [facility]ly [facility] Date of : 1970 Chief Complaint: Nonhealing abdominal wounds, follow up Subjective/HPI: Mary Jane is a 53 y.o. female who present to [facility] for evaluation of 2 ulcer(s) on the right lower abdomen. Patient established with wound clinic 01/30/2024. Current daily wound care includes: daily vashe soaks, keeping covered. Patient reports she was bitten by a brown usha spider approximately 1 month ago. She has been treated with oral antibiotics. Patient reports there are several spiders in her apartment building and other residents have been bitten. Measurable wound changes: Decrease wound measurement #1, increase wound measurement #2 Patient accompanied by: Self, arrives in wheelchair Nutritional screen shows patient [place] take in three servings of protein per day. Patient does not deny fever, chills, sweats or other symptoms of infection. Prescribed antibiotics:Currently none Review of wound culture: 01/30/2024 Component Gram Stain Result 1 to 9 WHITE BLOOD CELLS/LPF 0 SQUAMOUS EPITHELIAL CELLS/LPF MANY GRAM POSITIVE COCCI IN CLUSTERS Culture RARE LADY PARAPSILOSIS : CLINICAL CORRELATION RECOMMENDED. MAY REPRESENT COMMENSAL ERIC. Abnormal ALONG WITH MANY NORMAL SKIN ERIC Today's reported Blood sugar: 183 No results found for: HGBA1C Tobacco:denied - never a smoker Contributing comorbid conditions: Type 2 diabetes insulin dependent, BM I 49.06 Patient Active Problem List Diagnosis Acquired hypothyroidism Allergic rhinitis due to allergen Asthma without status asthmaticus Chronic sinusitis Diabetic neuropathy ([facility]) Gastroparesis Hyperlipidemia Lobular panniculitis Obesity, morbid ([facility]) Other chronic pain Supraventricular tachycardia ([facility]) Type 2 diabetes mellitus without complication ([facility]) Non-pressure chronic ulcer of skin of 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 ([facility]) Past Medical History: Diagnosis Date Anemia Asthma Diabetes type 2, controlled ([facility]) GI problem Herniation of right side of L4-L5 intervertebral disc High cholesterol Hypertension Hypothyroidism Nerve damage in feet and legs Osteoarthritis Ovarian cancer ([facility]) Past Surgical History: Procedure Laterality Date APPENDECTOMY CHOLECYSTECTOMY DISCECTOMY KNEE ARTHROSCOPY Right NASAL SEPTUM SURGERY REPLACEMENT TOTAL KNEE Right SHOULDER HARDWARE REMOVAL TONSILLECTOMY Current Outpatient Medications Medication Sig Dispense Refill albuterol (PROVENTIL HFA;VENTOLIN HFA) 90 mcg/actuation inhaler Inhale 2 puffs every 4 (four) hoursas needed for shortness of breath. allopurinoL (ZYLOPRIM) 300 mg tablet Take 1 tablet (300 mg total) by mouth in the morning. ascorbic acid, vitamin C, (ascorbic acid) 250 mg tablet,chewable Chew and swallow. biotin 10,000 mcg capsule Take by mouth. cholecalciferol, vitamin D3, 2,000 units capsule Take 1 capsule (2,000 Units total) by mouth in themorning. cinnamon bark (CINNAMON) 500 mg capsule Take 4 capsules (2,000 mg total) by mouth in the morning. cyclobenzaprine (FLEXERIL) 10 mg tablet fenofibrate (LOFIBRA) 160 mg tablet ferrous sulfate (IRON) 325 (65 FE) mg tablet Take 1 tablet (325 mg total) by mouth daily with breakfast. fexofenadine (ORAL) 180 mg tablet Take 1 tablet (180 mg total) by mouth in the morning. fluticasone (FLONASE) 50 mcg/actuation nasal spray furosemide (LASIX) 40 mg tablet HUMULIN R U-500, CONC, KWIKPEN injection Inject 150 Units of U-500 under the skin in the morning and 150 Units of U-500 at noon and 150 Units of U-500 in the evening and 150 Units of U-500 before bedtime. 150-190 units QID. inulin (FIBER GUMMIES) 2 gram tablet,chewable Chew and swallow. [id number] 303-15-52-50 mg capsule Take by mouth. Lactobacillus acidophilus (ACIDOPHILUS) capsule Take 1 capsule by mouth in the morning and 1 capsule at noon and 1 capsule in the evening. Take with meals. levothyroxine (SYNTHROID, LEVOTHROID) 150 MCG tablet LYRICA 75 mg capsule metoprolol tartrate (LOPRESSOR) 50 mg tablet montelukast (SINGULAIR) 10 mg tablet multivitamin tablet,chewable Chew 2 capsules and swallow. ondansetron ODT (ZOFRAN-ODT) 4 mg disintegrating tablet pantoprazole (PROTONIX) 40 mg EC tablet SYMBICORT 160-4.5 mcg/actuation inhaler tiotropium bromide 1.25 mcg/actuation mist Inhale 2 puffs in the morning. TRULICITY 4.5 mg/0.5 mL pen injector Inject 4.5 mg under the skin once a week. Sundays vitamin B complex (SUPER B-50 COMPLEX PLUS ORAL) Take by mouth. vitamin E, dl,tocopheryl acet, (VITAMIN E, DL, ACETATE,) 400 unit capsule Take 1 capsule (400 Unitstotal) by mouth in the morning. No current facility-administered medications for this visit. Allergies Allergen Reactions Bactrim [Sulfamethoxazole-Trimethoprim] Anaphylaxis Penicillins Anaphylaxis Sulfamethoxazole Anaphylaxis and Swelling Sulfanilamide Anaphylaxis Trimethoprim Anaphylaxis Aspirin Vomiting Avelox [Moxifloxacin] Hives Azithromycin Hives Cefzil [Cefprozil] Hives Cephalexin Hives Ciprofloxacin Hives Percocet [Oxycodone-Acetaminophen] Vomiting Adhesive Rash The following portions of the patient's history were reviewed and updated as appropriate: allergies, current medications, past family history, past medical history, past social history, past surgicalhistory, problem list, and medication reconciliation was completed including current medication andpost discharge medication. PAIN: Pain Scale 0/10: 5 Review of Systems Constitutional: Negative. Negative for appetite change, chills and fever. HENT: Negative. Negative for trouble swallowing. Eyes: Negative. Respiratory: Negative. Negative for cough, shortness of breath and stridor. Cardiovascular: Negative. Negative for chest pain, palpitations and leg swelling. Gastrointestinal: Negative. Negative for abdominal distention, abdominal pain, nausea and vomiting. Genitourinary: Negative. Negative for dysuria, frequency and urgency. Musculoskeletal: Positive for arthralgias, back pain and gait problem. Skin: Positive for color change and wound. Neurological: Positive for numbness. Negative for weakness. Objective: Physical Exam Nursing note reviewed. Constitutional: Appearance: She is well-developed. HENT: Head: Normocephalic and atraumatic. Cardiovascular: Rate and Rhythm: Normal rate and regular rhythm. Heart sounds: No murmur heard. No friction rub. Pulmonary: Effort: No respiratory distress. Breath sounds: Normal breath sounds. No wheezing. Abdominal: General: Bowel sounds are normal. Palpations: Abdomen is soft. Musculoskeletal: General: Normal range of motion. Cervical back: Normal range of motion. Skin: General: Skin is warm and dry. Neurological: Mental Status: She is alert and oriented to person, place, and time. Wound Assessment: Wound 01/30/24 1 Abdomen Right Lateral;Proximal (Active) Wound Image Pre debridement Post debridement 02/06/24 1414 Site Assessment Black;Red;Yellow;Painful 02/06/24 1414 Molly-wound Assessment Red;Blanchable erythema 02/06/24 1414 Wound Length (cm) 3 cm 02/06/24 1428 Wound Width (cm) 3.5 cm 02/06/24 1428 Wound Surface Area (cm^2) 10.5 cm^2 02/06/24 1428 Wound Depth (cm) 0.5 cm 02/06/24 1428 Wound Volume (cm^3) 5.25 cm^3 02/06/24 1428 Change in Wound Size % 11.76 02/06/24 1428 Drainage Description Serosanguineous;Yellow;[place] 02/06/24 1414 Drainage Amount Moderate 02/06/24 1414 Treatments Cleansed with;Wound cleanser;Soak with;Vashe/Hypochlorous Acid 02/06/24 1414 Debridement Performed? Y 02/06/24 1428 Type of Debridement Sharp to Subcutaneous 02/06/24 1428 Debridement Area (cm^2) 10.5 cm^2 02/06/24 1428 Dressing Type Xeroform;Foam 02/06/24 1428 Dressing Changed New 02/06/24 1428 Dressing Status Clean;Dry;Intact 02/06/24 1428 Wound Bed Granulation (%) < 25% 02/06/24 141 Wound Bed Slough (%) 50% to 75% 02/06/24 1414 Wound Bed Eschar (%) < 25% 02/06/24 1414 Wound 01/30/24 2 Abdomen Right Lateral;Distal (Active) Wound Image Pre debridement Posterior 02/06/24 1414 Site Assessment Black;Red;Painful;Yellow 02/06/24 141 Molly-wound Assessment Blanchable erythema;Red;Painful 02/06/24 1414 Wound Length (cm) 3 cm 02/06/24 1428 Wound Width (cm) 8.8 cm 02/06/24 1428 Wound Surface Area (cm^2) 26.4 cm^2 02/06/24 1428 Wound Depth (cm) 0.6 cm 02/06/24 1428 Wound Volume (cm^3) 15.84 cm^3 02/06/24 1428 Change in Wound Size % -4.76 02/06/24 1428 Drainage Description Serosanguineous;[place];Yellow 02/06/24 1414 Drainage Amount Moderate 02/06/24 1414 Treatments Cleansed with;Wound cleanser;Soak with;Vashe/Hypochlorous Acid 02/06/24 1414 Debridement Performed? Y 02/06/24 1428 Type of Debridement Sharp to Subcutaneous 02/06/24 1428 Debridement Area (cm^2) 26.4 cm^2 02/06/24 1428 Dressing Type Foam;Xeroform 02/06/24 1428 Dressing Changed New 02/06/24 1428 Dressing Status Clean;Dry;Intact 02/06/24 1428 Wound Bed Granulation (%) < 25% 02/06/24 1414 Wound Bed Slough (%) < 25% 02/06/24 1414 Wound Bed Eschar (%) 25% to 50% 02/06/24 1414 Discussion: Debridement includes the removal of foreign material and/or devitalized tissue until healthy tissue is exposed. Risks, benefits and alternatives were discussed with the patient. We discussed possible complications, including infection and bleeding. Written consent was obtained prior to the procedure. Timeout procedure completed. Goals of debridement include: removal of devitalized tissue, decrease risk of infection, promote wound healing and prevent further complications. Procedure: Debridement/Procedure Level: Removal of devitalized tissue, nonviable tissue, and/or infection: Sub-q/Tissue Instrument Used: Adson, Curette, and Scissors Anesthesia Dermoplast Bleeding: Small Bleeding Control: Pressure Added Pain Control: Benzocaine 20% spray Specimen Taken: None, Total Surface Area of Debridement: 36.9 cm2 Dressing: The wound was cleansed with wound wash and a Vashe moist gauze dressing was placed in wound clinic. Patient Status: Well tolerated by patient. Assessment/Plan/Education: 1. Non-pressure chronic ulcer of skin of 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 (CMS-HCC) 2. Spider bite wound, accidental or unintentional, initial encounter Vashe Use: 1) Cleanse the wound and surrounding skin with Vashe This will remove the wound debris 2) Allow to site for 10 minutes 3) Cover with xeroform gauze 4) Cover with silicone bordered foam, patient sensitive to adhesive 5) prescription doxycycline 100 mg 1 p.o. b.i.d. for 14 days 6) do not scratch area 7) will add Diflucan 200 mg one PO per day for 3 days, based on wound culture. Patient instructed in Other: Chronic wounds care to abdomen. Patient verbalize ability to perform wound care. Patient verbalized understanding. We will continue to follow closely to avoid any complications or infection. Our short term goal is wound compliance. Our terminologist goal is wound closure. The patient was taught to watch for S/S of infection (redness, pus, pain, increased swelling, chills or fever) and to call the PCP or wound care clinic if such occurs. The patient was educated on offloading the area by avoiding direct pressure to the wound bed. Education as well as the pathophysiology of the disease process was provided on infection, edema, necrotic tissue and its relationship tononhealing wounds. Education was also provided on treatment plan. Patient verbalized understanding. Follow up wound clinic in 1 week. Instructed to contact wound clinic/PCP or ER should symptoms worsen. Total time spent was 24 minutes: Preparing to see the patient (e.g., review of tests) Obtaining and/or reviewing separately obtained history Performing a medically appropriate examination and/or evaluation Counseling and educating the patient/family/caregiver Ordering medications, tests, or procedures Documenting clinical information in the electronic or other health record - SHAYLA CASANOVA 02/06/24 2:41 PM Jayleen Nicole APRN, JOSE, KALPANA, ELMIRA [facility]:[phone] SHAYLA Casanova 02/03/24 0812 SHAYLA Casanova 02/06/24 1500 SHAYLA Casanova 02/06/24 1542 documented in this encounterSelect [facility]Kampyle [id number] Instructions* Patient Instructions* Fiorella Martinez RN - 02/06/2024 1:40 PM EDT Wound culture was obtained in clinic today, 01/30/24. We will notify you of any abnormal results. Wound Management Treatment Plan Wound Location(s): right lateral proximal (upper) abdomen, right lateral distal (lower) abdomen HOW TO CARE FOR YOUR WOUND The following should be performed Daily and as needed. STEP 1: Cleanse wound with Wound cleanser. STEP 2: Place a moistened Vashe gauze into wound beds. A sample of Vashe solution was given to you at clinic 01/30/24) STEP 3: Apply xeroform into wound bed STEP 4: Wipe surrounding wound skin with skin prep pad, this will help protect your skin and help the foam dressing to adhere. STEP 5: Cover wound with Foam with silicone border Apply vaseline to any red irritated areas of skin to outer abdomen. ACTIVITY: Avoid direct pressure to wound(s) at all times and Reposition at least every 2 hours NUTRITION: High protein diet SKIN CARE: keep wound covered at all times SWELLING CONTROL: Avoid standing for prolonged periods of time. Elevate legs whenever sitting to level of heart/hips or higher. ITEMS TO FOLLOW UP ON: None Length Width Depth Wound 01/30/24 1 Abdomen Right Lateral;Proximal-Wound Length (cm): 3 cm Wound 01/30/24 2 Abdomen Right Lateral;Distal-Wound Length (cm): 3 cm Wound 01/30/24 1 Abdomen Right Lateral;Proximal-Wound Width (cm): 3.5 cm Wound 01/30/24 2 Abdomen Right Lateral;Distal-Wound Width (cm): 8.8 cm Wound 01/30/24 1 Abdomen Right Lateral;Proximal-Wound Depth (cm): 0.5 cm Wound 01/30/24 2 Abdomen Right Lateral;Distal-Wound Depth (cm): 0.6 cm Wound drainage Type Description large Serosanginous Serosanguinous, cuello, yellow documented in [facility] Miscellaneous Notes* Addendum Note - SHAYLA Casanova - 02/06/2024 1:40 PM EDTAddended by: JAYLEEN NICOLE on: 02/06/2024 03:42 PM Modules accepted: Orders documented in this encounterMer[facility]09-[facility]-2024 Note* Addendum Note - SHAYLA Casanova - 02/06/2024 1:40 PM EDTAddended by: JAYLEEN NICOLE on: 02/06/2024 03:42 PM Modules accepted: Orders [facility]08-30-[facility] History of Present illness Narrative* SHAYLA Casanova - 01/30/2024 2:00 PM EDT Images from the original note were not included. Wound Care Progress Note Patient: Mary Jane Foy Formerly [facility] Date of : 1970 Chief Complaint: Nonhealing abdominal wounds New patient evaluation Subjective/HPI: Mary Jane is a 53 y.o. female who [facility] for evaluation of 2 ulcer(s) on the right lower abdomen. Patient established with wound clinic 01/30/2024. Current daily wound care includes applying bacitracin ointment. Patient reports she was bitten by a brown usha spider approximately 1 month ago. She has been treated with oral antibiotics. Patient reports there are several spiders in her apartment building and other residents have been bitten. Measurable wound changes: New patient evaluation Patient accompanied by: Self, arrives in wheelchair Nutritional screen shows patient [place] take in three servings of protein per day. Patient does not deny fever, chills, sweats or other symptoms of infection. Prescribed antibiotics:Currently non Today's reported Blood sugar: 136 No results found for: HGBA1C Tobacco:denied - never a smoker Contributing comorbid conditions: Type 2 diabetes insulin dependent, BM I 49.06 Patient Active Problem List Diagnosis Acquired hypothyroidism Allergic rhinitis due to allergen Asthma without status asthmaticus Chronic sinusitis Diabetic neuropathy ([facility]) Gastroparesis Hyperlipidemia Lobular panniculitis Obesity, morbid ([facility]) Other chronic pain Supraventricular tachycardia ([facility]) Type 2 diabetes mellitus without complication ([facility]) Non-pressure chronic ulcer of skin of 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 ([facility]) Past Medical History: Diagnosis Date Anemia Asthma Diabetes type 2, controlled ([facility]) GI problem Herniation of right side of L4-L5 intervertebral disc High cholesterol Hypertension Hypothyroidism Nerve damage in feet and legs Osteoarthritis Ovarian cancer ([facility]) Past Surgical History: Procedure Laterality Date APPENDECTOMY CHOLECYSTECTOMY DISCECTOMY KNEE ARTHROSCOPY Right NASAL SEPTUM SURGERY REPLACEMENT TOTAL KNEE Right SHOULDER HARDWARE REMOVAL TONSILLECTOMY Current Outpatient Medications Medication Sig Dispense Refill albuterol (PROVENTIL HFA;VENTOLIN HFA) 90 mcg/actuation inhaler Inhale 2 puffs every 4 (four) hoursas needed for shortness of breath. allopurinoL (ZYLOPRIM) 300 mg tablet Take 1 tablet (300 mg total) by mouth in the morning. ascorbic acid, vitamin C, (ascorbic acid) 250 mg tablet,chewable Chew and swallow. biotin 10,000 mcg capsule Take by mouth. cholecalciferol, vitamin D3, 2,000 units capsule Take 1 capsule (2,000 Units total) by mouth in themorning. cinnamon bark (CINNAMON) 500 mg capsule Take 4 capsules (2,000 mg total) by mouth in the morning. cyclobenzaprine (FLEXERIL) 10 mg tablet fenofibrate (LOFIBRA) 160 mg tablet ferrous sulfate (IRON) 325 (65 FE) mg tablet Take 1 tablet (325 mg total) by mouth daily with breakfast. fexofenadine (ORAL) 180 mg tablet Take 1 tablet (180 mg total) by mouth in the morning. fluticasone (FLONASE) 50 mcg/actuation nasal spray furosemide (LASIX) 40 mg tablet HUMULIN R U-500, CONC, KWIKPEN injection Inject 150 Units of U-500 under the skin in the morning and 150 Units of U-500 at noon and 150 Units of U-500 in the evening and 150 Units of U-500 before bedtime. 150-190 units QID. inulin (FIBER GUMMIES) 2 gram tablet,chewable Chew and swallow. [id number] mg capsule Take by mouth. Lactobacillus acidophilus (ACIDOPHILUS) capsule Take 1 capsule by mouth in the morning and 1 capsule at noon and 1 capsule in the evening. Take with meals. levothyroxine (SYNTHROID, LEVOTHROID) 150 MCG tablet LYRICA 75 mg capsule metoprolol tartrate (LOPRESSOR) 50 mg tablet montelukast (SINGULAIR) 10 mg tablet multivitamin tablet,chewable Chew 2 capsules and swallow. ondansetron ODT (ZOFRAN-ODT) 4 mg disintegrating tablet pantoprazole (PROTONIX) 40 mg EC tablet SYMBICORT 160-4.5 mcg/actuation inhaler tiotropium bromide 1.25 mcg/actuation mist Inhale 2 puffs in the morning. TRULICITY 4.5 mg/0.5 mL pen injector Inject 4.5 mg under the skin once a week. Sundays vitamin B complex (SUPER B-50 COMPLEX PLUS ORAL) Take by mouth. vitamin E, dl,tocopheryl acet, (VITAMIN E, DL, ACETATE,) 400 unit capsule Take 1 capsule (400 Unitstotal) by mouth in the morning. No current facility-administered medications for this visit. Allergies Allergen Reactions Bactrim [Sulfamethoxazole-Trimethoprim] Anaphylaxis Penicillins Anaphylaxis Sulfamethoxazole Anaphylaxis and Swelling Sulfanilamide Anaphylaxis Trimethoprim Anaphylaxis Aspirin Vomiting Avelox [Moxifloxacin] Hives Azithromycin Hives Cefzil [Cefprozil] Hives Cephalexin Hives Ciprofloxacin Hives Percocet [Oxycodone-Acetaminophen] Vomiting Adhesive Rash The following portions of the patient's history were reviewed and updated as appropriate: allergies, current medications, past family history, past medical history, past social history, past surgicalhistory, problem list, and medication reconciliation was completed including current medication andpost discharge medication. PAIN: Pain Description: Sharp, Shooting, Other (Comment) (stabbing) Pain Scale 0/10: 8 Relieved by: Rest Review of Systems Constitutional: Negative. Negative for appetite change, chills and fever. HENT: Negative. Negative for trouble swallowing. Eyes: Negative. Respiratory: Negative. Negative for cough, shortness of breath and stridor. Cardiovascular: Negative. Negative for chest pain, palpitations and leg swelling. Gastrointestinal: Negative. Negative for abdominal distention, abdominal pain, nausea and vomiting. Genitourinary: Negative. Negative for dysuria, frequency and urgency. Musculoskeletal: Positive for arthralgias, back pain and gait problem. Skin: Positive for color change and wound. Neurological: Positive for numbness. Negative for weakness. Objective: Vitals: 01/30/24 1402 BP: 110/53 Pulse: 86 Resp: 18 Temp: 37 C (98.6 F) Physical Exam Vitals and nursing note reviewed. Constitutional: Appearance: She is well-developed. HENT: Head: Normocephalic and atraumatic. Cardiovascular: Rate and Rhythm: Normal rate and regular rhythm. Heart sounds: No murmur heard. No friction rub. Pulmonary: Effort: No respiratory distress. Breath sounds: Normal breath sounds. No wheezing. Abdominal: General: Bowel sounds are normal. Palpations: Abdomen is soft. Musculoskeletal: General: Normal range of motion. Cervical back: Normal range of motion. Skin: General: Skin is warm and dry. Neurological: Mental Status: She is alert and oriented to person, place, and time. Wound Assessment: Wound 01/30/24 1 Abdomen Right Lateral;Proximal (Active) Wound Image Pre debridement Post debridement Wound culture obtain 01/30/24 1426 Site Assessment Red;Yellow;Brown;Painful;Moist;Cuello 01/30/24 1417 Molly-wound Assessment Red;Blanchable erythema;Painful 01/30/24 1417 Wound Length (cm) 3.4 cm 01/30/24 1426 Wound Width (cm) 3.5 cm 01/30/24 1426 Wound Surface Area (cm^2) 11.9 cm^2 01/30/24 1426 Wound Depth (cm) 0.5 cm 01/30/24 1426 Wound Volume (cm^3) 5.95 cm^3 01/30/24 1426 Change in Wound Size % 0 01/30/24 142 Drainage Description Serosanguineous;Cuello;Yellow;Odor Faint 01/30/24 1417 Drainage Amount Large Copious 01/30/24 1417 Treatments Cleansed with;Soak with;Vashe/Hypochlorous Acid 01/30/24 1417 Debridement Performed? Y 01/30/24 1426 Type of Debridement Sharp to Subcutaneous 01/30/24 1426 Debridement Area (cm^2) 11.9 cm^2 01/30/24 1426 Wound Bed Granulation (%) < 25% 01/30/24 1417 Wound Bed Slough (%) 75% to 100% 01/30/24 1417 Wound 01/30/24 2 Abdomen Right Lateral;Distal (Active) Wound Image Pre Wound debridement Post debride 01/30/24 1426 Site Assessment Red;Yellow;Brown;Cuello;Moist;Painful 01/30/24 1417 Molly-wound Assessment Blanchable erythema;Red;Painful 01/30/24 1417 Wound Length (cm) 3.53 cm 01/30/24 1426 Wound Width (cm) 7.2 cm 01/30/24 1426 Wound Surface Area (cm^2) 25.416 cm^2 01/30/24 1426 Wound Depth (cm) 0.3 cm 01/30/24 1426 Wound Volume (cm^3) 7.6248 cm^3 01/30/24 1426 Change in Wound Size % -0.86 01/30/24 1426 Drainage Description Serosanguineous;Cuello;Yellow 01/30/24 1417 Drainage Amount Large Copious 01/30/24 1417 Treatments Cleansed with;Soak with;Vashe/Hypochlorous Acid 01/30/24 1417 Debridement Performed? Y 01/30/24 1426 Type of Debridement Sharp to Subcutaneous 01/30/24 142 Debridement Area (cm^2) 25.2 cm^2 01/30/24 142 Wound Bed Granulation (%) 25% to 50% 01/30/24 141 Wound Bed Slough (%) 50% to 75% 01/30/24 1417 Discussion: Debridement includes the removal of foreign material and/or devitalized tissue until healthy tissue is exposed. Risks, benefits and alternatives were discussed with the patient. We discussed possible complications, including infection and bleeding. Written consent was obtained prior to the procedure. Timeout procedure completed. Goals of debridement include: removal of devitalized tissue, decrease risk of infection, promote wound healing and prevent further complications. Procedure: Debridement/Procedure Level: Removal of devitalized tissue, nonviable tissue, and/or infection: Sub-q/Tissue Instrument Used: Adson, Curette, and Scissors Anesthesia Dermoplast Bleeding: Small Bleeding Control: Pressure Added Pain Control: Benzocaine 20% spray Specimen Taken: C&S, Brodie method Total Surface Area of Debridement: 37.1 cm2 Dressing: The wound was cleansed with wound wash and a Vashe moist gauze dressing was placed in wound clinic. Patient Status: Well tolerated by patient. Assessment/Plan/Education: 1. Non-pressure chronic ulcer of skin of 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 (CMS-HCC) 2. Spider bite wound, accidental or unintentional, initial encounter Vashe Use: 1) Cleanse the wound and surrounding skin with Vashe This will remove the wound debris 2) Moist to moist Vashe gauze 3) Cover with silicone bordered foam, patient sensitive to adhesive 4) Wound culture obtained. 5) do not scratch area Patient instructed in Other: Chronic wounds care to abdomen. Patient verbalize ability to perform wound care. Patient verbalized understanding. We will continue to follow closely to avoid any complications or infection. Our short term goal is wound compliance. Our nursing home goal is wound closure. The patient was taught to watch for S/S of infection (redness, pus, pain, increased swelling, chills or fever) and to call the PCP or wound care clinic if such occurs. The patient was educated on offloading the area by avoiding direct pressure to the wound bed. Education as well as the pathophysiology of the disease process was provided on infection, edema, necrotic tissue and its relationship tononhealing wounds. Education was also provided on treatment plan. Patient verbalized understanding. Follow up wound clinic in 1 week. Instructed to contact wound clinic/PCP or ER should symptoms worsen. Total time spent was 24 minutes: Preparing to see the patient (e.g., review of tests) Obtaining and/or reviewing separately obtained history Performing a medically appropriate examination and/or evaluation Counseling and educating the patient/family/caregiver Ordering medications, tests, or procedures Documenting clinical information in the electronic or other health record - SHAYLA CASANOVA 01/30/24 2:37 PM Jayleen Nicole APRN, JOSE, KALPANA, ELMIRA [facility]:[phone] SHAYLA Casanova 02/03/24 0812 documented in [facility] encounter[facility] Instructions* Patient Instructions* Yandy Bray RN - 01/30/2024 2:00 PM EDT Wound culture was obtained in clinic today, 01/30/24. We will notify you of any abnormal results. Wound Management Treatment Plan Wound Location(s): right lateral proximal (upper) abdomen, right lateral distal (lower) abdomen HOW TO CARE FOR YOUR WOUND The following should be performed Daily and as needed. STEP 1: Cleanse wound with Wound cleanser. STEP 2: Place a moistened Vashe gauze into wound beds. A sample of Vashe solution was given to you at clinic 01/30/24) STEP 3: Wipe surrounding wound skin with skin prep pad, this will help protect your skin and help the foam dressing to adhere. STEP 4: Cover wound with Foam with silicone border Apply vaseline to any red irritated areas of skin to outer abdomen. ACTIVITY: Avoid direct pressure to wound(s) at all times and Reposition at least every 2 hours NUTRITION: High protein diet SKIN CARE: keep wound covered at all times SWELLING CONTROL: Avoid standing for prolonged periods of time. Elevate legs whenever sitting to level of heart/hips or higher. ITEMS TO FOLLOW UP ON: None Length Width Depth Wound 01/30/24 1 Abdomen Right Lateral;Proximal-Wound Length (cm): 3.4 cm Wound 01/30/24 2 Abdomen Right Lateral;Distal-Wound Length (cm): 3.53 cm Wound 01/30/24 1 Abdomen Right Lateral;Proximal-Wound Width (cm): 3.5 cm Wound 01/30/24 2 Abdomen Right Lateral;Distal-Wound Width (cm): 7.2 cm Wound 01/30/24 1 Abdomen Right Lateral;Proximal-Wound Depth (cm): 0.5 cm Wound 01/30/24 2 Abdomen Right Lateral;Distal-Wound Depth (cm): 0.3 cm Wound drainage Type Description large Serosanginous Serosanguinous, cuello, yellow documented in this encounterMer[facility] History of Present illness Narrative* Benito Romero DPM - 01/29/2024 1:10 PM EDT Patient: Mary Jane Foy Formerly [facility] : 1970 PCP: Kamran Chatterjee MD SUBJECTIVE This is a 53 y.o. female that presents today with a CC of elongated, thick nails. Pt states nails have been elongated and thick for many years and cause pain with ambulation in shoegear. Pt has tried previous treatment with minimal relief. Pt presents today for nail care and treatment. Patient is DM2 Allergies: Allergies Allergen Reactions Penicillins Unknown and Anaphylaxis Sulfamethoxazole Anaphylaxis and Swelling Sulfamethoxazole-Trimethoprim Anaphylaxis Sulfanilamide Anaphylaxis Trimethoprim Anaphylaxis Cefprozil Hives Cephalexin Hives Cephalosporins Hives Ciprofloxacin Other and Hives Moxifloxacin Hives and Unknown Oxycodone-Acetaminophen Other and GI intolerance Aspirin Rash Wound Dressing Adhesive Rash Past Medical History: Past Medical History: Diagnosis Date Allergies Anemia Arthritis Asthma (CMS/HCC) Asthma (CMS/HCC) Diabetes mellitus (CMS/HCC) DJD (degenerative joint disease) DM (diabetes mellitus) (CMS/HCC) H/O arthroscopic knee surgery 1987 Herniated cervical disc History of cardiac cath History of migraine headaches Obesity Onychomycosis Osteoarthritis Right upper quadrant pain Supraventricular tachycardia (CMS/HCC) Supraventricular tachycardia (CMS/HCC) Thyroid disease (CMS/HCC) Tinea pedis Medications: Current Outpatient Medications: albuterol HFA (Ventolin HFA) 90 mcg/act inhaler, Inhale 2 puffs in the morning and 2 puffs in the evening and 2 puffs before bedtime., Disp: , Rfl: allopurinol (Zyloprim) 300 MG tablet, Take 300 mg by mouth 1 (one) time each day at the same time.,Disp: , Rfl: ascorbic acid (Vitamin C) 250 MG chewable tablet, Chew 250 mg in the morning., Disp: , Rfl: ascorbic acid (Vitamin C) 250 MG tablet, Take 250 mg by mouth 1 (one) time each day at the same time., Disp: , Rfl: biotin 10 MG capsule, Take 10 mg by mouth in the morning., Disp: , Rfl: budesonide-formoterol (Symbicort) 160-4.5 MCG/ACT inhaler, Inhale 2 puffs every 12 (twelve) hours.,Disp: , Rfl: calcium carbonate (Os-Vani) 1250 (500 Ca) MG tablet, Take 1,250 mg by mouth every 12 (twelve) hours., Disp: , Rfl: Lake DMT 30-30 MG tablet, Take 30 mg by mouth in the morning., Disp: , Rfl: cholecalciferol (Vitamin D-3) 50 MCG (1999 UT) capsule, Take 1 capsule by mouth 1 (one) time each day at the same time., Disp: , Rfl: cholecalciferol (Vitamin D-3) 50 MCG (1999 UT) capsule, Take 2,000 Units by mouth in the morning., Disp: , Rfl: cinnamon 500 MG capsule, Take 2,000 mg by mouth in the morning., Disp: , Rfl: clindamycin (Cleocin) 300 MG capsule, Take 300 mg by mouth in the morning and 300 mg in the eveningand 300 mg before bedtime., Disp: , Rfl: clopidogrel (Plavix) 75 MG tablet, Take 75 mg by mouth Daily, Disp: , Rfl: cyclobenzaprine (Flexeril) 10 MG tablet, Take 10 mg by mouth 1 (one) time each day at the same time., Disp: , Rfl: diclofenac (Voltaren) 75 MG EC tablet, Take 75 mg by mouth in the morning and 75 mg before bedtime., Disp: , Rfl: doxycycline (Monodox) 100 MG capsule, Take 100 mg by mouth in the morning and 100 mg before bedtime., Disp: , Rfl: fenofibrate (Triglide) 160 MG tablet, Take 160 mg by mouth 1 (one) time each day at the same time.,Disp: , Rfl: ferrous sulfate 325 (65 Fe) MG tablet, Take 325 mg by mouth in the morning. Take with meals., Disp:, Rfl: fexofenadine (Oral) 180 MG tablet, Take 180 mg by mouth in the morning., Disp: , Rfl: furosemide (Lasix) 20 MG tablet, Take 20 mg by mouth in the morning and 20 mg before bedtime., Disp: , Rfl: furosemide (Lasix) 40 MG tablet, Take 40 mg by mouth in the morning., Disp: , Rfl: HumuLIN R 500 UNIT/ML CONCENTRATED injection, Inject 500 mL under the skin in the morning., Disp: ,Rfl: indomethacin (Indocin) 50 MG capsule, Take 50 mg by mouth in the morning and 50 mg in the evening. Take with meals., Disp: , Rfl: insulin regular (HumuLIN R U-500 KWIKPEN) 500 UNIT/ML CONCENTRATED injection, Inject 500 mL under the skin at bedtime., Disp: , Rfl: Inulin 2 g chewable tablet, Chew 2 g., Disp: , Rfl: Lactobacillus (Acidophilus) capsule, Take 1 capsule by mouth in the morning and 1 capsule at noon and 1 capsule in the evening. Take with meals., Disp: , Rfl: levoFLOXacin (Levaquin) 250 MG tablet, Take 250 mg by mouth Daily, Disp: , Rfl: levothyroxine (Synthroid, Levoxyl) 175 MCG tablet, Take 100 mcg by mouth 1 (one) time each day at the same time., Disp: , Rfl: lisinopril 10 MG tablet, Take by mouth Daily, Disp: , Rfl: Lyrica 100 MG capsule, Take 1 capsule (100 mg) by mouth in the morning and 1 capsule (100 mg) in the evening and 1 capsule (100 mg) before bedtime., Disp: 270 capsule, Rfl: 0 metoprolol tartrate (Lopressor) 50 MG tablet, Take 50 mg by mouth every 12 (twelve) hours., Disp: ,Rfl: montelukast (Singulair) 10 MG tablet, Take 10 mg by mouth in the morning., Disp: , Rfl: pantoprazole (ProtoNix) 40 MG EC tablet, Take 40 mg by mouth 1 (one) time each day at the same time., Disp: , Rfl: pregabalin (Lyrica) 100 MG capsule, Take 1 capsule (100 mg) by mouth in the morning and 1 capsule (100 mg) in the evening and 1 capsule (100 mg) before bedtime., Disp: 270 capsule, Rfl: 0 tiotropium (Spiriva Respimat) 1.25 MCG/ACT inhaler, Inhale 2 puffs 1 (one) time each day at the same time., Disp: , Rfl: traMADol (Ultram) 50 MG tablet, Take 50 mg by mouth every 6 (six) hours if needed., Disp: , Rfl: zileuton CR (Zyflo CR) 600 MG 12 hr tablet, Take 1,200 mg by mouth every 12 (twelve) hours., Disp: , Rfl: Social History: Social History Socioeconomic History Marital status: Spouse name: Not on file Number of children: Not on file Years of education: Not on file Highest education level: Not on file Occupational History Not on file Tobacco Use Smoking status: Never Passive exposure: Never Smokeless tobacco: Never Substance and Sexual Activity Alcohol use: Never Drug use: Never Sexual activity: Not on file Other Topics Concern Not on file Social History Narrative Not on file Social Determinants of Health Financial Resource Strain: Not on file Food Insecurity: No Food Insecurity (08/14/2023) Received [facility], [facility] Hunger Screening Within the past 12 months we worried whether our food would run out before we got money to buy more.: Never True Within the past 12 months the food we bought just didn't last and we didn't have money to get more.: Never True Transportation Needs: Not on file Physical Activity: Not on file Stress: Not on file Social Connections: Not on file Intimate Partner Violence: Unknown (07/24/2023) Received from [facility], [facility] [place] Safety & Environment Fear of Current or Ex-Partner: Not on file Emotionally Abused: Not on file Physically Abused: Not on file Sexually Abused: Not on file Physically or Sexually Abused: Not on file Housing Stability: Not on file ROS: General: denies fever, chills, fatigue, malaise OBJECTIVE LE EXAM: DERM: Elongated thick yellow crumbly nails digits 1 through 9. Negative hair growth with thin shinyatrophic skin bilaterally VASC: Negative DP and negative PT pedal pulses NEURO: 5.07 [place] Ayla monofilament test diminished to digits and forefoot bilaterally 125Hz tuning fork diminished to 1st MPJ bilaterally ORTHO: Positive pain on palpation to nails 1 through 9 ASSESSMENT Onychomycosis nails 1-9 Painful toenails 1-9 DM2 with Peripheral neuropathy PLAN Discussed proper foot care with patient today. [place]bride nails in length and thickness digits 1 through 9 Patient educated today on proper diabetic foot care including monitoring feet daily for any signs of infection openings in the skin or irregularities to both feet. Patient had a diabetic neurologicalexam today to both their feet and discussed proper shoe gear. Benito Romero DPM documented in this encounterLee's Summit [id number] History of Present illness Narrative* Manolo Sanchez DO - 01/21/2024 10:45 AM EDT General Surgery H&P Authsudheer Foy [facility] 1970 Mary Jane Foy [facility] is a 53 y.o. female presents with chief complaint of Insect Bite (Pt presents today for a spider bite on her abdomen. She states that this happened about 3 weeks ago and she was trying to treat herself at home. She states that was washing it with a wound wash and applying neosporin. She states that it was getting really painful on Friday so she went to [place] [facility]. She states that there are 2 bites on her abdomen. She states that she has them covered right now so the pain isnot that bad. She denies any swelling or redness. She states that there was liquids coming out) Denies fevers, chills, or sweats. Denies nausea or vomiting. Currently on oral antibiotics that were pre scribed by her PCP. SUBJECTIVE: MEDICATIONS: ALLERGIES Current Outpatient Medications Medication Instructions albuterol HFA (Ventolin HFA) 90 mcg/act inhaler 2 puffs, Inhalation, 3 times daily allopurinol (ZYLOPRIM) 300 mg, Oral, Every 24 hours ascorbic acid (VITAMIN C) 250 mg, Oral, Every 24 hours ascorbic acid (VITAMIN C) 250 mg, Oral, Daily biotin 10 mg, Oral, Daily budesonide-formoterol (Symbicort) 160-4.5 MCG/ACT inhaler 2 puffs, Inhalation, Every 12 hours calcium carbonate (OS-VANI) 1,250 mg, Oral, Every 12 hours [place] DMT 30-30 MG tablet 30 mg, Oral, Daily cholecalciferol (Vitamin D-3) 50 MCG (1999) capsule 1 capsule, Oral, Every 24 hours cholecalciferol (VITAMIN D-3) 2,000 Units, Oral, Daily RT cinnamon 2,000 mg, Oral, Daily RT clindamycin (CLEOCIN) 300 mg, Oral, 3 times daily clopidogrel (PLAVIX) 75 mg, Oral, Daily cyclobenzaprine (FLEXERIL) 10 mg, Oral, Every 24 hours diclofenac (VOLTAREN) 75 mg, Oral, 2 times daily doxycycline (MONODOX) 100 mg, Oral, 2 times daily fenofibrate (TRIGLIDE) 160 mg, Oral, Every 24 hours ferrous sulfate 325 mg, Oral, Daily with breakfast fexofenadine (ORAL) 180 mg, Oral, Daily RT furosemide (LASIX) 40 mg, Oral, Daily furosemide (LASIX) 20 mg, Oral, 2 times daily HumuLIN R 500 UNIT/ML CONCENTRATED injection 500 mL, Subcutaneous, Every morning indomethacin (INDOCIN) 50 mg, Oral, 2 times daily with meals insulin regular (HumuLIN R U-500 KWIKPEN) 500 UNIT/ML CONCENTRATED injection 500 mL, Subcutaneous, Nightly Inulin 2 g, Oral Lactobacillus (Acidophilus) capsule 1 capsule, Oral, 3 times daily with meals levoFLOXacin (LEVAQUIN) 250 mg, Oral, Daily levothyroxine (SYNTHROID, LEVOXYL) 100 mcg, Oral, Every 24 hours lisinopril 10 MG tablet Oral, Daily Lyrica 100 mg, Oral, 3 times daily metoprolol tartrate (LOPRESSOR) 50 mg, Oral, Every 12 hours montelukast (SINGULAIR) 10 mg, Oral, Daily pantoprazole (PROTONIX) 40 mg, Oral, Every 24 hours pregabalin (LYRICA) 100 mg, Oral, 3 times daily tiotropium (Spiriva Respimat) 1.25 MCG/ACT inhaler 2 puffs, Inhalation, Every 24 hours traMADol (ULTRAM) 50 mg, Oral, Every 6 hours PRN zileuton CR (ZYFLO CR) 1,200 mg, Oral, Every 12 hours Allergies Allergen Reactions Penicillins Unknown and Anaphylaxis Sulfamethoxazole Anaphylaxis and Swelling Sulfamethoxazole-Trimethoprim Anaphylaxis Sulfanilamide Anaphylaxis Trimethoprim Anaphylaxis Cefprozil Hives Cephalexin Hives Cephalosporins Hives Ciprofloxacin Other and Hives Moxifloxacin Hives and Unknown Oxycodone-Acetaminophen Other and GI intolerance Aspirin Rash Wound Dressing Adhesive Rash PAST MEDICAL HISTORY: SOCIAL HISTORY SURGICAL HISTORY: Past Medical History: Diagnosis Date Allergies Anemia Arthritis Asthma (CMS/HCC) Asthma ([facility]/HCC) Diabetes mellitus ([facility]) DJD (degenerative joint disease) DM (diabetes mellitus) ([facility]) H/O arthroscopic knee surgery 1987 Herniated cervical disc History of cardiac cath History of migraine headaches Obesity Onychomycosis Osteoarthritis Right upper quadrant pain Supraventricular tachycardia ([facility]/HCC) Supraventricular tachycardia ([facility]/HCC) Thyroid disease ([facility]) Tinea pedis Social History Tobacco Use Smoking status: Never Passive exposure: Never Smokeless tobacco: Never Substance Use Topics Alcohol use: Never Drug use: Never Past Surgical History: Procedure Laterality Date BACK SURGERY 2011 CARPAL TUNNEL RELEASE 2000 CHOLECYSTECTOMY 2000 EYE EXAM 2012 KNEE SURGERY 1999 knee arthroscopy ROTATOR CUFF REPAIR 2008 TONSILLECTOMY 1972 Family History Problem Relation Name Age of Onset Kidney failure Mother Hypertension Mother Heart disease Mother COPD Father Kidney failure Father Diabetes Father Hypertension Father Osteoporosis Father Heart disease Brother Heart disease Maternal Grandfather No Known Problems Paternal Grandmother Allergies Allergen Reactions Penicillins Unknown and Anaphylaxis Sulfamethoxazole Anaphylaxis and Swelling Sulfamethoxazole-Trimethoprim Anaphylaxis Sulfanilamide Anaphylaxis Trimethoprim Anaphylaxis Cefprozil Hives Cephalexin Hives Cephalosporins Hives Ciprofloxacin Other and Hives Moxifloxacin Hives and Unknown Oxycodone-Acetaminophen Other and GI intolerance Aspirin Rash Wound Dressing Adhesive Rash Past Surgical History: Procedure Laterality Date BACK SURGERY 2011 CARPAL TUNNEL RELEASE 2001 CHOLECYSTECTOMY 2000 EYE EXAM 2012 KNEE SURGERY 1999 knee arthroscopy ROTATOR CUFF REPAIR 2008 TONSILLECTOMY 1972 Tobacco Use: Low Risk (01/21/2024) Patient History Smoking Tobacco Use: Never Smokeless Tobacco Use: Never Passive Exposure: Never Alcohol Use: Not on file Depression: Not on file Physical Activity: Not on file REVIEW OF SYMPTOMS: Review of Systems All other systems reviewed and are negative. 10 systems were reviewed. Positives noted above. Remainder are negative per CMS guidelines OBJECTIVE: Visit Vitals Pulse 74 Resp 18 Ht 5' 3 Wt 274 lb SpO2 99% BMI 48.54 kg/m Smoking Status Never BSA 2.35 m Physical Exam Vitals reviewed. General: AAOx3, NAD Head: atraumatic normocephalic Neck: trachea midline. No masses or lymphadenopathy Heart: Regular rate and rhythm Lungs: equal chest rise and fall, non labored breathing Abdomen: soft, + tenderness to right pannus region where wounds are otherwise non tender elsewhere,and non distended Right lower quadrant/ pannus wounds noted x2, one the size of a an with some fat slough and acute on chronic skin changes, the more medial wound is larger about 6x8cm and noted to have some fat necrosis and exudate, no crepitance and no surrounding erythema, no underlying fluid collections appreciated Ext: motor 5/5 all extremities with no gross deformities Psych: alert and oriented, behavior appropriate ASSESSMENT AND PLAN: Assessment/Plan Diagnoses and all orders for this visit: Chronic wound infection of abdomen, initial encounter - Ambulatory referral to Wound Clinic; Future Educated patient on how to clean the wound. Referral given for wound care clinic in [place], [place] which is where she currently lives. Informed her to complete her oral antibiotics and cont using the topical antibacterial cream until seen by wound clinic. Anticipate she will need some enzymatic debridement of the wound and routine weekly follow up. Thank you, Susan Sanchez DO documented in this encounterLee's Summit [id number] Miscellaneous Notes* Telephone Encounter - Regine Canela CMA - 09/10/2023 9:42 AM EDT ----- Message from Antonio Boo DO sent at 09/10/2023 8:41 AM EDT ----- Let patient know that she had mild gastritis and should continue to take her pantoprazole. If she is continuing to have dysphagia she may try to take her pantoprazole twice daily for 1 month only. Otherwise she may follow up p.r.n.. Thanks, Dr. Vicente * Telephone Encounter - Regine Canela CMA - 09/10/2023 9:42 AM EDT Spoke with patient regarding pathology results. Patient verbally understood with no further questions. [facility] Telephone encounter Note* Telephone Encounter - Regine Canela CMA - 09/10/2023 9:42 AM EDT ----- Message from Antonio Boo DO sent at 09/10/2023 8:41 AM EDT ----- Let patient know that she had mild gastritis and should continue to take her pantoprazole. If she is continuing to have dysphagia she may try to take her pantoprazole twice daily for 1 month only. Otherwise she may follow up p.r.n.. Dr. Cinthia Phelan [facility]04-10-2024 Telephone encounter Note* Telephone Encounter - Regine Canela CMA - 09/10/2023 9:42 AM EDT Spoke with patient regarding pathology results. Patient verbally understood with no further questions. [facility]03-14-2024 History of Present illness Narrative* Renee Dubose, LABORER ROAD-MEDICAL PSYCHOTHERAPIST - 08/14/2023 10:00 AM EDT Images from the original note were not included. Chief Complaint: Dysphagia History of Present Illness Mary Jane Suarez is a 53 y.o. female who [...] or drink an increased amount of caffeine. Sheis currently taking pantoprazole 40 mg daily. She [...] Date Anemia Asthma Diabetes type 2, controlled ([facility]) GI problem Herniation of right side of L4-L5 intervertebral disc High cholesterol Hypertension Hypothyroidism Nerve damage in feet and legs Osteoarthritis Ovarian cancer ([facility]) Past Surgical History: Procedure Laterality Date APPENDECTOMY [...] (2,000 mg total) by mouth in the morning.,Disp: , Rfl: cyclobenzaprine (FLEXERIL) 10 mg tablet, [...] tablet,chewable, Chew and swallow., Disp: , Rfl: [id number] [id number] mg capsule, Take by mouth., Disp: , [...] for: INR , PROTIME Assessment Mary Jane Suarez is a 53 y.o.female with dysphagia. Plan Esophagram. EGD with possible biopsy. Risks, benefits, and alternatives discussed with patient. Patient verbalizes understanding and wishes to proceed. Evaluation included: Preparing to see the patient (e.g., review of tests) Obtaining and/or reviewing separately obtained history Performing a medically appropriate examination and/or evaluation Counseling and educating the patient/family/caregiver Referring and communicating with other health managed care coordinator Dysphagia, unspecified type [R13.10] SHAYLA RUBIO [facility] Physicians General Surgery [place] This note was created with the assistance of a speech recognition program. While intending to generate a timely document that accurately reflects the content of the visit, no guarantee can be provided that every grammatical or spelling mistake has been or will be identified or corrected. Thank you for your understanding. SHAYLA Rubio 08/14/23 1058 documented in [facility] Evaluation note* Encounter Date Diagnosis Assessment Notes Treatment Notes Treatment Clinical Notes Apr, Disorders of fluid, electrolyte, and acid-base balance (ICD-10 - E87.8) She appears to be euvolemic on exam. Potassium and Bicarbonate are within the normal limit. Continue lasix 40 mg BID. Apr,hronic kidney disease, stage III (moderate) (ICD-10 - N18.30)She has CKD 3 due to HTN and DM. Her b/l serum Creatinine is 1.3-1.5 mg/dl. I have discussed with her the importance of good DM and HTN control to slow down the progression of disease. Her renal US showed unremarkable kidneys in 2011. Apr,Hypertensive chronic kidney disease with stage 1 through stage 4 chronic kidney disease, or unspecified chronic kidney disease (ICD-10 - I12.9) Blood pressure is well controlled on current regimen. I will continue same medications. Apr,Vitamin D deficiency (ICD-10 - E55.9)Continue current medications Apr,iabetes mellitus with chronic kidney disease (ICD-10 - E11.22)She has uncontrolled DM and currently follows with Dr. Moon. She currently does not take PAULETTE or ARB. Apr,Hypoparathyroidism (ICD-10 - E20.9)She has hypoparathyroidism due to the need to be etiology. Her calcium, phosphorus and vitamin D are within the goal. [email or web address] Other 05-08-2023 Evaluation note* Encounter Date Diagnosis Assessment Notes Treatment Notes Treatment Clinical Notes September, Arthritis of left knee (ICD-10 - M17.12) Authumn presents with left knee DJD. H/o R TKA. At this juncture we have discussed the findings anddiagnosis as well as personally reviewed appropriate imaging [...] to come down and her glucose control needsto improve in order to optimize her for [...] to decrease her A1C in the meantime. September,Morbid (severe) obesity due to excess calories (ICD-10 - E66.01) September,ody mass index [BMI] 50.0-59.9, adult (ICD-10 - Z68.43)Today we discussed obesity. I have informed the [...] physical activity as well as decrease caloric i ntake. We offered referral for bariatric services. Our discussion is limited to 5 minutes. September,OtherSee orders for this visit as documented in the electronic medical record. [email or web address] Other 03-20-2023 Evaluation note* Encounter Date Diagnosis Assessment Notes Treatment Notes Treatment Clinical Notes Jul, Itch (ICD-10 - L29.9) Jul,nesthesia of skin (ICD-10 - R20.0) Jul,aresthesia of skin (ICD-10 - R20.2)Based on patient's history, discussed potential for many causes including cervical disc disease, carpal tunnel and cubital tunnel. Patient declines cortisone injection to the carpal tunnel. Provided order for physical therapy for the cervical spine. If no improvement we will refer patient to neurology for EMG and neurology evaluation. Jul,Type 2 diabetes mellitus without complication, unspecified whether terminologist insulin use (ICD-10 - E11.9) Jul,ervical spine pain (ICD-10 - M54.2) [email or web address] Other 03-16-2023 Evaluation note* Encounter Date Diagnosis Assessment Notes Treatment Notes Treatment Clinical Notes Jul, Disorders of fluid, electrolyte, and acid-base balance (ICD-10 - E87.8) She appears to be euvolemic on exam. Potassium and Bicarbonate are within the normal limit. Continue lasix 40 mg BID. Jul,hronic kidney disease, stage III (moderate) (ICD-10 - N18.30)She has CKD 3 due to HTN and DM. Her b/l serum Creatinine is 1.1-1.4 mg/dl. I have discussed with her the importance of good DM and HTN control to slow down the progression of disease. Her renal US showed unremarkable kidneys in 2011. I have advised her to contact the PCP office to see if the lining caser can help her with the subsidized housing. Jul,Hypertensive chronic kidney disease with stage 1 through stage 4 chronic kidney disease, or unspecified chronic kidney disease (ICD-10 - I12.9) Blood pressure is well controlled on current regimen. I will continue same medications. Jul,Vitamin D deficiency (ICD-10 - E55.9)Continue current medications Jul,iabetes mellitus with chronic kidney disease (ICD-10 - E11.22)She has uncontrolled DM and currently follows with Dr. Moon. She currently does not take PAULETTE or ARB. Jul,Hypoparathyroidism (ICD-10 - E20.9)She has hypoparathyroidism due to the need to be etiology. Her calcium, phosphorus and vitamin D are within the goal. [email or web address] Other 02-07-2023 NotePROCEDURE: XR HIP LT 2 [...] No acute abnormality. Electronically authenticated by: AFIA AVILEZ Date: 2022-07-09 07:42[facility]09-12-2022 Evaluation note* Encounter Date Diagnosis Assessment Notes Treatment Notes Treatment Clinical Notes Jan, Disorders of fluid, electrolyte, and acid-base balance (ICD-10 - E87.8) She appears to be euvolemic on exam. Potassium and Bicarbonate are within the normal limit. Continue lasix 40 mg BID. Jan,hronic kidney disease, stage III (moderate) (ICD-10 - N18.30)She has CKD 3 due to HTN and DM. Her b/l serum Creatinine is 1.1-1.4 mg/dl. I have discussed with her the importance of good DM and HTN control to slow down the progression of disease. Her renal US showed unremarkable kidneys in 2011. I have advised her to contact the PCP office to see if the lining caser can help her with the subsidized housing. Jan,Hypertensive chronic kidney disease with stage 1 through stage 4 chronic kidney disease, or unspecified chronic kidney disease (ICD-10 - I12.9) Blood pressure is well controlled on current regimen. I will continue same medications. Jan,Vitamin D deficiency (ICD-10 - E55.9)Continue current medications Jan,2Diabetes mellitus with chronic kidney disease (ICD-10 - E11.22)She has uncontrolled DM and currently follows with Dr. Moon. She currently does not take PAULETTE or ARB. [email or web address] Other 05-23-2022 Evaluation note* Encounter Date Diagnosis Assessment Notes Treatment Notes Treatment Clinical Notes September, Acute pain of left shoulder (ICD -10 - M25.512) September,Left shoulder tendonitis (ICD-10 - M77.8)This appears to be pain secondary to subacromial bursitis / rotator cuff tendonitis. We discussed and demonstrated gentle motion exercise and rotator cuff strengthening exercise. Discussed the use ofnon-steroidal anti-inflammatory medication. Patient is unable to have a cortisone injection today due to her diabetic condition. Formal therapy order provided. If no improvement, may consider MRI to assess for rotator cuff tear. [email or web address] Other 03-03-2022 Evaluation note* Encounter Date Diagnosis Assessment Notes Treatment Notes Treatment Clinical Notes Jul, Disorders of fluid, electrolyte, and acid-base balance (ICD-10 - E87.8) She appears to be euvolemic on exam. Potassium and Bicarbonate are within the normal limit. Continue lasix 40 mg BID. Jul,hronic kidney disease, stage III (moderate) (ICD-10 - N18.30) She has CKD 3 due to HTN and DM. Her b/l serum Creatinine is 1.1-1.4 mg/dl. I have discussed with her the importance of good DM and HTN control to slow down the progression of disease. Her renal US showed unremarkable kidneys in 2011Jul,Hypertensive chronic kidney disease with stage 1 through stage 4 chronic kidney disease, or unspecified chronic kidney disease (ICD-10 - I12.9) Blood pressure is well controlled on current regimen. I will continue same medications. Jul,Vitamin D deficiency (ICD-10 - E55.9) Continue current medications Jul,2Diabetes mellitus with chronic kidney disease (ICD-10 - E11.22) She has uncontrolled DM and currently follows with Dr. Moon. She currently does not take PAULETTE or ARB. [email or web address] Other Evaluation noteNo assessment information available [facility] Work Phone: Evaluation noteNo [employer] Other Evaluation noteNortroom[employer]x Other Evaluation note* Diagnosis Onset Date Resolution Status CKD (chronic kidney disease) stage 3, GF R 30-59 ml/min [id number] 2 diabetes mellitus with diabetic chronic kidney diseaseacuteVitamin D deficiency acute [facility] Work Phone: Evaluation note* Diagnosis Onset Date Resolution Status Abscess acuteCKD (chronic kidney disease) stage 3, GFR 30-59 ml/minacuteHyperlipidemia acuteHyperuricemiaacuteHypoparathyroidismacuteType 2 diabetes mellitus with diabetic chronic kidney diseaseacute [facility] Work Phone: Evaluation note* Diagnosis Onset Date Resolution Status Chronic abdominal wound infection acuteCKD (chronic kidney disease) stage 3, GFR 30-59 ml/minacuteHyperlipidemia acuteHyperuricemiaacuteHypoparathyroidismacuteMultiple drug resistant organism (MDRO) culture positiveacuteType 2 diabetes mellitus with diabetic chronic kidney diseaseacute [facility] Work Phone: Evaluation note* Diagnosis Onset Date Resolution Status Chronic abdominal wound infection acuteCKD (chronic kidney disease) stage 3, GFR 30-59 ml/minacuteHyperlipidemia acuteHypoparathyroidismacuteMultiple drug resistant organism (MDRO) culture positiveacuteType 2 diabetes mellitus with diabetic chronic kidney diseaseacute HyperuricemiaresolvedChronic abdominal wound infectionacuteMultiple drug resistant organism (MDRO) culture positiveacuteType 2 diabetes mellitus with diabetic chronic kidney diseaseacute [facility] Work Phone: Evaluation note* Diagnosis Diabetes mellitus due to underlying condition with diabetic polyneuropathy, with long-term current use of insulin ([facility])- Primary Pain due to onychomycosis of toenails of both feet documented in this encounter [facility]* Diagnosis Chronic wound infection of abdomen, initial encounter- Primary documented in this encounter [facility]* Diagnosis Diabetes mellitus due to underlying condition with diabetic polyneuropathy, with long-term current use of insulin ([facility])- Primary Onychomycosis Dermatophytosis of nail Toe pain, left Pain in soft tissues of limb Toe pain, right Pain in soft tissues of limb documented in this encounter [facility]* Diagnosis Dysphagia, unspecified type- Primary Personal history of ovarian cancer Personal history of malignant neoplasm of ovary Morbid obesity with BMI of 45.0-49.9, adult ([facility]) [facility] Diagnosis Dysphagia, unspecified type documented [facility] this encounter [facility]* Diagnosis Wound infection- Primary Posttraumatic wound infection not elsewhere classified Wound infection Posttraumatic wound infection not elsewhere classified Acquired hypothyroidism Unspecified hypothyroidism Diabetic neuropathy ([facility]) Type II or unspecified type diabetes mellitus with neurological manifestations, not stated as uncontrolled Hyperlipidemia Other and unspecified hyperlipidemia Obesity, morbid ([facility]) Morbid obesity Supraventricular tachycardia ([facility]) Other specified cardiac dysrhythmias Type 2 diabetes mellitus without complication ([facility]) Stage 2 chronic kidney disease [facility] Diagnosis Non-pressure chronic ulcer of skin of 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 ([facility] Primary Spider bite wound, accidental or unintentional, initial encounter [facility] Diagnosis Non-pressure chronic ulcer of skin of 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 ([facility])- Primary Cellulitis, abdominal wall [facility] Diagnosis Non-pressure chronic ulcer of skin of 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 ([facility])- Primary Spider bite wound, accidental or unintentional, subsequent encounter [facility] Diagnosis Non-pressure chronic ulcer of skin of 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 ([facility])- Primary Cellulitis, abdominal wall [facility] Diagnosis Non-pressure chronic ulcer of skin of 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 ([facility])- Primary Spider bite wound, accidental or unintentional, subsequent encounter [facility]* Diagnosis Cellulitis, abdominal wall- Primary [facility]* Diagnosis Tremor- Primary Abnormal involuntary movements Lumbar back pain Lumbago Lumbar radiculopathy Thoracic or lumbosacral neuritis or radiculitis, unspecified Migraine without aura and without status migrainosus, not intractable ([facility]) documented [facility] encounter [facility]* Diagnosis Diabetes mellitus due to underlying condition with diabetic polyneuropathy, with long-term current use of insulin ([facility])- Primary Pain due to onychomycosis of toenails of both feet documented in this encounter [facility]* Diagnosis Type 2 diabetes mellitus without complication, with long-term current use of insulin- Primary Acquired hypothyroidism ([facility]) Unspecified hypothyroidism Mixed hyperlipidemia ([facility]) Mixed hyperlipidemia Encounter for dietary consultation Insulin long-term use ([facility]) Encounter for long-term (current) use of insulin Encounter for fitting or adjustment of insulin pump Fitting and adjustment of insulin pump Insulin pump in place Insulin pump status Class 3 severe obesity due to excess calories with serious comorbidity and body mass index (BMI) of50.0 to 59.9 in adult documented in this encounter [facility]* Diagnosis Diabetes mellitus due to underlying condition with diabetic polyneuropathy, with long-term current use of insulin (HCC)- Primary Pain due to onychomycosis of toenails of both feet documented in this encounter [facility]* Diagnosis Adverse effect of penicillin, initial encounter- Primary Chronic rhinitis documented in this encounter [facility]* Diagnosis Type 2 diabetes mellitus without complication, with long-term current use of insulin ([facility])- Primary Acquired hypothyroidism Unspecified hypothyroidism Mixed hyperlipidemia Mixed hyperlipidemia Encounter for dietary consultation Insulin long-term use ([facility]) Encounter for long-term (current) use of insulin Encounter for fitting or adjustment of insulin pump Fitting and adjustment of insulin pump Insulin pump in place Insulin pump status Class 3 severe obesity due to excess calories with serious comorbidity and body mass index (BMI) of45.0 to 49.9 in adult ([facility]) documented in this encounter [facility]* Diagnosis Adverse effect of penicillin, subsequent encounter- Primary Diabetes mellitus due to underlying condition with diabetic polyneuropathy, with long-term current use of insulin ([facility])- Primary Pain due to onychomycosis of toenails of both feet documented in this encounter [facility]* Diagnosis Diabetes mellitus due to underlying condition with diabetic polyneuropathy, with long-term current use of insulin ([facility])- Primary Pain due to onychomycosis of toenails of both feet documented in this encounter [facility]* Diagnosis Type 2 diabetes mellitus without complication, with long-term current use of insulin ([facility])- Primary Acquired hypothyroidism Unspecified hypothyroidism Mixed hyperlipidemia Encounter for dietary consultation Insulin long-term use (HCC) Encounter for long-term (current) use of insulin Encounter for fitting or adjustment of insulin pump Fitting and adjustment of insulin pump Insulin pump in place Insulin pump status Class 3 severe obesity due to excess calories with serious comorbidity and body mass index (BMI) of45.0 to 49.9 in adult ([facility]) documented in this encounter [facility] general Narrative - Reported* Type Description Date Medical History SVT Medical Historydiabetes mellitus type 2Medical HistoryasthmaMedical History uncontrolled DM type 2Medical HistoryGERDMedical HistoryMorbid obesityMedical HistorySOB on exertionMedical HistoryhypothyroidismMedical Historyarthritis Medical Historykidney disease stage 3Medical Historynerve damageMedical History spinal degenerationMedical HistoryIBSMedical HistoryASTHMAMedical HistoryC-Diff Surgical HistoryProcedure: Arthroscopy knee;Disease:1999Surgical History [id number] Historyarthroscopic rt [place]'s 94816,1999 Surgical HistoryProcedure: Tonsillectomy;Disease:1971Surgical History [id number] HistoryProcedure: Rotator Cuff Repair;Disease:2008 Surgical Historyarthroscopy rt x's 2 [id number] HistoryProcedure: Carpal tunnel release;Disease:2000Surgical Historycardiac [id number] Surgical HistoryProcedure: eye exam;Disease:Diabetes mellitus, type 78712 Surgical HistoryProcedure:Cholecystectomy;Disease:2000Surgical Historyshoulder [id number] Xxzgrdfspphjnwzyiiq0611Ytywwkqx HistoryProcedure:ativan, zofran, tylenol;Disease:right upper quad [id number] Historybone clsm5936 Surgical Historyback [id number] Historyherniated disk [id number] Surgical Historyright total knee(07/28/12)Surgical Historyinjections to back Dr Lundberg5/16Surgical Historycarpel tunnel right4/17Surgical HistoryHeart Cath 11/09/2020urgical HistoryHYSTERECTOMY/ PNEUMONIA12/05/2020Hospitalization History SEE ABOVE SURGERYHospitalization HistoryCellulitis [facility]2020 [email or web address] Other History general Narrative - Reported* Type Description Date Medical History SVT Medical Historydiabetes mellitus type 2Medical HistoryasthmaMedical History uncontrolled DM type 2Medical HistoryGERDMedical HistoryMorbid obesityMedical HistorySOB on exertionMedical HistoryhypothyroidismMedical Historyarthritis Medical Historykidney disease stage 3Medical Historynerve damageMedical History spinal degenerationMedical HistoryIBSMedical HistoryASTHMAMedical HistoryC-Diff Medical HistoryCOVID urgical HistoryProcedure: Arthroscopy knee;Disease: 1999Surgical Etnlaehwegecdcmswokc9719Uzomwgie Historyarthroscopic rt knee surgery x's 49641,1999Surgical HistoryProcedure: Tonsillectomy;Disease:1971 Surgical Qdrjadynrbqhgbaifadypw0209Bsqqtjki HistoryProcedure: Rotator Cuff Repair;Disease:2008Surgical Historyarthroscopy rt x's 2 [id number] HistoryProcedure: Carpal tunnel release;Disease:2000Surgical Historycardiac xchuxweutausrci4546Vbkdvwpd HistoryProcedure: eye exam;Disease:Diabetes mellitus, type 88768Cbpwkzsf HistoryProcedure:Cholecystectomy;Disease:2000 Surgical Historyshoulder bzrhxgq0144Ypdjmqlo Spvqnqwyooktvhountv6626Nxceasjl HistoryProcedure:ativan, zofran, tylenol;Disease:right upper quad usxr5601 Surgical Historybone [id number] Historyback pgrztsk9432Aebyvesr History herniated disk zpayti9655Obawpbrv Historyright total knee(07/28/12)Surgical Historyinjections to back Dr Lundberg5/16Surgical Historycarpel tunnel right417 Surgical HistoryHeart Cath11/09/2020urgical HistoryHYSTERECTOMY/ PNEUMONIA 12/05/2020Hospitalization HistorySEE ABOVE SURGERYHospitalization History Cellulitis [facility] X202/2020 [facility] Other History general Narrative - [facility]ortedNortDelaware [facility] Other History of Present illness Narrative* Benito Romero DPM - 08/12/2024 2:10 PM EDT Patient: Authsduheer Foy [facility] : 1970 PCP: Kamran Chatterjee MD SUBJECTIVE This is a 54 y.o. female that presents today with a CC of elongated, thick nails. Pt states nails have been elongated and thick for many years and cause pain with ambulation in shoegear. Pt has tried previous treatment with minimal relief. Pt presents today for nail care and treatment. Patient is DM2 with peripheral neuropathy Allergies: Allergies Allergen Reactions Penicillins Unknown and Anaphylaxis Sulfamethoxazole Anaphylaxis and Swelling Sulfamethoxazole-Trimethoprim Anaphylaxis Sulfanilamide Anaphylaxis Trimethoprim Anaphylaxis Cefprozil Hives Cephalexin Hives Cephalosporins Hives Ciprofloxacin Other and Hives Moxifloxacin Hives and Unknown Oxycodone-Acetaminophen Other and GI intolerance Aspirin Rash Wound Dressing Adhesive Rash Past Medical History: Past Medical History: Diagnosis Date Allergies Anemia Arthritis Asthma ([facility]) Asthma ([facility] Diabetes mellitus ([facility]) Dietary counseling and surveillance DJD (degenerative joint disease) DM (diabetes mellitus) ([facility]) Encounter for fitting or adjustment of insulin pump H/O arthroscopic knee surgery 1987 Herniated cervical disc History of cardiac cath History of migraine headaches nursing home (current) use of insulin ([facility]) Mixed hyperlipidemia ([facility]) Morbid obesity with BMI of 50.0-59.9, adult ([facility]) Obesity Onychomycosis Osteoarthritis Presence of insulin pump Right upper quadrant pain Supraventricular tachycardia ([facility]) Supraventricular tachycardia ([facility]) Thyroid disease ([facility]) Tinea pedis Type 2 diabetes mellitus with hyperglycemia ([facility]) Vitamin D deficiency Medications: Current Outpatient Medications: albuterol HFA (Ventolin HFA) 90 mcg/act inhaler, Inhale 2 puffs in the morning and 2 puffs in the evening and 2 puffs before bedtime., Disp: , Rfl: allopurinol (Zyloprim) 300 MG tablet, Take 300 mg by mouth 1 (one) time each day at the same time.,Disp: , Rfl: ascorbic acid (Vitamin C) 250 MG chewable tablet, Chew 250 mg in the morning., Disp: , Rfl: ascorbic acid (Vitamin C) 250 MG tablet, Take 250 mg by mouth 1 (one) time each day at the same time., Disp: , Rfl: biotin 10 MG capsule, Take 10 mg by mouth in the morning., Disp: , Rfl: budesonide-formoterol (Symbicort) 160-4.5 MCG/ACT inhaler, Inhale 2 puffs every 12 (twelve) hours.,Disp: , Rfl: calcium carbonate (Os-Vani) 1250 (500 Ca) MG tablet, Take 1,250 mg by mouth every 12 (twelve) hours., Disp: , Rfl: Calcium Polycarbophil (fiber) 625 MG tablet, Take 2 tablets by mouth every 6 (six) hours, Disp: , Rfl: Lake DMT 30-30 MG tablet, Take 30 mg by mouth in the morning., Disp: , Rfl: cholecalciferol (Vitamin D-3) 50 MCG (1999 [place]) capsule, Take 1 capsule by mouth 1 (one) time each day at the same time., Disp: , Rfl: cholecalciferol (Vitamin D-3) 50 MCG (2000 [place]) capsule, Take 2,000 Units by mouth in the morning., Disp: , Rfl: cinnamon 500 MG capsule, Take 2,000 mg by mouth in the morning., Disp: , Rfl: clindamycin (Cleocin) 300 MG capsule, Take 300 mg by mouth in the morning and 300 mg in the eveningand 300 mg before bedtime., Disp: , Rfl: clopidogrel (Plavix) 75 MG tablet, Take 75 mg by mouth Daily, Disp: , Rfl: Continuous Glucose Sensor (FreeStyle Lisbeth 2 Sensor) [facility], CHANGE EVERY 14 DAYS., Disp: 6 each, Rfl: 1 cyclobenzaprine (Flexeril) 10 MG tablet, Take 10 mg by mouth 1 (one) time each day at the same time., Disp: , Rfl: diclofenac (Voltaren) 75 MG EC tablet, Take 75 mg by mouth in the morning and 75 mg before bedtime., Disp: , Rfl: Docusate Sodium (DSS) 250 MG capsule, Take 1 capsule by mouth Daily as needed, Disp: , Rfl: doxycycline (Monodox) 100 MG capsule, Take 100 mg by mouth in the morning and 100 mg before bedtime., Disp: , Rfl: Dulaglutide 4.5 MG/0.5ML solution auto-injector, Inject 1 Dose under the skin 1 (one) time per week, Disp: , Rfl: Dupilumab (Dupixent) 300 MG/2ML solution auto-injector, EVERY 2 WEEKS, Disp: , Rfl: fenofibrate (Triglide) 160 MG tablet, Take 160 mg by mouth 1 (one) time each day at the same time.,Disp: , Rfl: ferrous sulfate 325 (65 Fe) MG tablet, Take 325 mg by mouth in the morning. Take with meals., Disp:, Rfl: fexofenadine (Oral) 180 MG tablet, Take 180 mg by mouth in the morning., Disp: , Rfl: furosemide (Lasix) 20 MG tablet, Take 20 mg by mouth in the morning and 20 mg before bedtime., Disp: , Rfl: furosemide (Lasix) 40 MG tablet, Take 40 mg by mouth in the morning., Disp: , Rfl: HumuLIN R 500 UNIT/ML CONCENTRATED injection, Inject 500 mL under the skin in the morning., Disp: ,Rfl: indomethacin (Indocin) 50 MG capsule, Take 50 mg by mouth in the morning and 50 mg in the evening. Take with meals., Disp: , Rfl: insulin regular (HumuLIN R U-500 KWIKPEN) 500 UNIT/ML CONCENTRATED injection, Inject 500 mL under the skin at bedtime., Disp: , Rfl: Inulin 2 g chewable tablet, Chew 2 g., Disp: , Rfl: Lactobacillus (Acidophilus) capsule, Take 1 capsule by mouth in the morning and 1 capsule at noon and 1 capsule in the evening. Take with meals., Disp: , Rfl: levoFLOXacin (Levaquin) 250 MG tablet, Take 250 mg by mouth Daily, Disp: , Rfl: levothyroxine (Synthroid, Levoxyl) 175 MCG tablet, Take 100 mcg by mouth 1 (one) time each day at the same time., Disp: , Rfl: lisinopril 10 MG tablet, Take by mouth Daily, Disp: , Rfl: Lyrica 100 MG capsule, Take 1 capsule (100 mg) by mouth in the morning and 1 capsule (100 mg) in the evening and 1 capsule (100 mg) before bedtime., Disp: 270 capsule, Rfl: 0 metoprolol tartrate (Lopressor) 50 MG tablet, Take 50 mg by mouth every 12 (twelve) hours., Disp: ,Rfl: montelukast (Singulair) 10 MG tablet, Take 10 mg by mouth in the morning., Disp: , Rfl: pantoprazole (ProtoNix) 40 MG EC tablet, Take 40 mg by mouth 1 (one) time each day at the same time., Disp: , Rfl: pregabalin (Lyrica) 100 MG capsule, Take 1 capsule (100 mg) by mouth in the morning and 1 capsule (100 mg) in the evening and 1 capsule (100 mg) before bedtime., Disp: 270 capsule, Rfl: 0 tiotropium (Spiriva Respimat) 1.25 MCG/ACT inhaler, Inhale 2 puffs 1 (one) time each day at the same time., Disp: , Rfl: traMADol (Ultram) 50 MG tablet, Take 50 mg by mouth every 6 (six) hours if needed., Disp: , Rfl: zileuton CR (Zyflo CR) 600 MG 12 hr tablet, Take 1,200 mg by mouth every 12 (twelve) hours., Disp: , Rfl: Social History: Social History Socioeconomic History Marital status: Spouse name: Not on file Number of children: Not on file Years of education: Not on file Highest education level: Not on file Occupational History Not on file Tobacco Use Smoking status: Never Passive exposure: Never Smokeless tobacco: Never Substance and Sexual Activity Alcohol use: Never Drug use: Never Sexual activity: Not on file Other Topics Concern Not on file Social History Narrative Not on file Social Drivers of Health Financial Resource Strain: Not on file Food Insecurity: No Food Insecurity (03/10/2024) Received from [facility] Hunger Screening Within the past 12 months we worried whether our food would run out before we got money to buy more.: Never True Within the past 12 months the food we bought just didn't last and we didn't have money to get more.: Never True Transportation Needs: No Transportation Needs (02/20/2024) [facility] Lack of Transportation (Medical): No Lack of Transportation (Non-Medical): No Physical Activity: Not on file Stress: Not on file Social Connections: Not on file Intimate Partner Violence: Unknown (07/24/2023) [facility] Safety & Environment Fear of Current or Ex-Partner: Not on file Emotionally Abused: Not on file Physically Abused: Not on file Sexually Abused: Not on file Physically or Sexually Abused: Not on file Housing Stability: Low Risk (02/20/2024) [facility] [address] [facility] Housing Instability Are you worried or concerned that in the next two months you may not have stable housing that you own, rent or stay in as a part of a household?: No ROS: General: denies fever, chills, fatigue, malaise OBJECTIVE LE EXAM: DERM: Elongated thick yellow crumbly nails digits 1 through 10. Negative hair growth with thin shiny atrophic skin bilaterally VASC: Negative DP and negative PT pedal pulses NEURO: 5.07 [place] Ayla monofilament test diminished to digits and forefoot bilaterally 125Hz tuning fork diminished to 1st MPJ bilaterally ORTHO: Positive pain on palpation to toenails of the left 1,2,3,4,5 toes and right 1,2,3,4,5 toes ASSESSMENT 1. Diabetes mellitus due to underlying condition with diabetic polyneuropathy, with long-term current use of insulin ([facility]) 2. Pain due to onychomycosis of toenails of both feet PLAN Discussed proper foot care with patient today. Debride nails in length and thickness digits 1 through 10 Patient educated today on proper diabetic foot care including monitoring feet daily for any signs of infection openings in the skin or irregularities to both feet. Patient had a diabetic neurologicalexam today to both their feet and discussed proper shoe gear. Benito Romero DPM [facility] Additional Instructions Packing out in 3 days Warm compresses to affected area 20 minutes 3-4 times a day Follow-up with your wound VAC physician 3 days Return if [facility] are worseWay[facility] Work Phone: Hospital Discharge instructionsAmbulatory Orders* Initiate Home Health Time Frame: 1 Day, Location: Determined By Patient Additional Instructions Home health nurse to manage care: Full code Routine vital signs BID dressing changes: *Dressing changes to right abdominal wound: Remove packing. Irrigate wound with saline/Vashe, repack with saline moistened Kerlix gauze roll and cover with dry dressings. Use non-sting skin prep under all tape. Patient allergic to adhesives causing blisters and sores. *Theraworx protect to clean scratches to right buttock and gluteal cleft from scratching and all skin folds redness Provide education and assist with home medication regimen Maintain and provide routine care to PICC line -- placed 03/23/24 Change dressing of PICC line Q7D Care to be managed [facility] Work Phone: Hospital Discharge instructions Additional Instructions If your symptoms return/worsen or you develop any further concerns or symptoms please see your doctor or return to the emergency department immediately. As we discussed if you change your mind about further management or observation in the hospital you may return to the emergency department or call 911 at any time. Please be sure to follow-up with your [facility] senior specialist.[facility] Work Phone: Hospital Discharge instructions Additional Instructions You are seen in the emergency department for your wound. You were prescribed antibiotics please take as prescribed. Please follow-up with Dr. Moya your presales senior specialist. Please return emerged department develop fevers chills more drainage from the site or if there is redness around the site.[facility] Work Phone: Hospital Discharge instructionsAmbulatory Orders* Initiate Home Health Time Frame: 1 Day, Location: Determined By Patient Additional Instructions Home Health to manage care: - Full code - Routine vital signs - Medication management and education - Right lateral abdomen fissure and left abdomen ulcers x 2- allow vashe moisteded gauze soak on wound bed for 5 min., wipe free loose debris, apply Non-sting skin prep to molly wound, apply polymem ag to wound bed and secure with opsite - change every 3 days and as needed. - Abdomen, breast and gluteal cleft folds- clean with theraworx protect foam, then apply nystatin powder, BID and as needed. - Turn and reposition every 2 hours and as needed - Offload heels q2h - Fingerstick blood sugar ACHS You need to see your primary care doctor as soon as possible, As there are few medications that need to be addressed whether you should be on them or notWayne Hospital Work Phone: InstructionsNot on filedocumented in this encounter [facility] filedocumented in this encounter [facility]Not on filedocumented in this encounter [facility]Not on filedocumented in this encounter [facility]ructionsNot on filedocumented in this encounter [facility] SystemReason for referral (narrative)* Consultation (Routine) - Pending ReviewSpecialtyDiagnoses / ProceduresReferred By ContactReferred To ContactWound Care Diagnoses Chronic wound infection of abdomen, initial encounter Procedures NM OFFICE/OUTPATIENT NEW HIGH MDM 60 MINUTES Manolo Sanchez DO [address] [place] [address] Referral IDStatusReasonStart DateExpiration DateVisits RequestedVisits [id number] Review Specialty Services Required / Scheduling Instructions [address], [place] [address] Call [phone] VALENTINE Nuno for referral (narrative)No reason for referral information availableLakehealth Beachwood [facility] Center Work Phone: Summary Purpose Family History No Family History Records Found Relationship Condition Age at Onset Recorded Date/T earl father Heart disease Unknown HypertensionUnknownDiabetes mellitusUnknownDeceasedUnknowngrandparentHeart diseaseUnknownHistory of strokeUnknowngrandparentDeceasedUnknownHeart disease UnknowngrandparentMotor vehicle accidentUnknownNot SpecifiedHistory of stroke UnknownsisterFamily history of mental disorderUnknown Relationship Condition Age at Onset Recorded Date/T earl father Heart disease Unknown HypertensionUnknownDiabetes mellitusUnknownDeceasedUnknowngrandparentHeart diseaseUnknownHistory of strokeUnknowngrandparentDeceasedUnknownHeart disease UnknowngrandparentMotor vehicle accidentUnknownmotherHistory of strokeUnknown sisterFamily history of mental disorderUnknown Advance Directives No Advanced Directives Records Found Advance Directive Response Recorded Date/ Time Advance Directives No November 13 8:11am Advance Directive Response Recorded Date/ Time Advance Directives No November 13 7:11am Date ActivatedDate InactivatedComments02/20/2024 6:55 PMDate ActivatedDate InactivatedComments02/20/2024 6:55 PM02/27/2024 9:48 PMDate ActivatedDate InactivatedComments02/20/2024 6:55 PM02/27/2024 9:48 PM Chief Complaint and Reason for Visit Chief Complaint M54.2 R20.0 M25.562 Chief Complaint Chronic Kidney Disea se Chief Complaint Unknown Chief Complaint Unknown RENAL 6 month f/uReason for VisitCKD (chronic kidney disease) stage 3, GFR 30-59 ml/min [id number] Hyperuricemia Hypoparathyroidism Type 2 diabetes mellitus with diabetic chronic kidney disease Vitamin D deficiency Chief Complaint spider bite, abscess Chief Complaint spider bite, abscess recheckReason for VisitAbscess CKD (chronic kidney disease) stage 3, GFR 30-59 ml/min Hyperlipidemia Hyperuricemia Hypoparathyroidism Type 2 diabetes mellitus with diabetic chronic kidney disease Chief Complaint spider bite, abscess recheck recheckReason for VisitChronic abdominal wound infection CKD (chronic kidney disease) stage 3, GFR 30-59 ml/min Hyperlipidemia Hyperuricemia Hypoparathyroidism Multiple drug resistant organism (MDRO) culture positive Type 2 diabetes mellitus with diabetic chronic kidney disease Chief Complaint spider bite, abscess recheck recheck Open Wound spider bite on stomachReason for VisitChronic abdominal wound infection CKD (chronic kidney disease) stage 3, GFR 30-59 ml/min Hyperlipidemia Hypoparathyroidism Multiple drug resistant organism (MDRO) culture positive Type 2 diabetes mellitus with diabetic chronic kidney disease Hyperuricemia Chronic abdominal wound infection Multiple drug resistant organism (MDRO) culture positive Type 2 diabetes mellitus with diabetic chronic kidney disease Chief Complaint Admit Date Open Wound July 27, 2024 10:49am wound on stomach August 11, 2024 5:1 7pm Reason for Visit Admit Date Chronic abdominal wound infection Februa 2024 10:49am Multiple drug resistant organism (MDRO) culture positive July 27, 2024 10:49am 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 disease July 27, 2024 10:49am Chief Complaint Admit Date wound on stomach August 11, 2024 5:1 7pm Open Wound August 17, 2024 9:3 0am sore wound on stomach August 21, 2024 4 :22pm Reason for Visit Admit Date Chronic abdominal wound infection August 17, 2024 9:30am Multiple drug resistant organism (MDRO) culture positive August 17, 2024 9:30am Open abdominal wall wound August 17 9:30am Type 2 diabetes mellitus with diabetic c hronic kidney disease August 17, 2024 9:30am Chief Complaint Admit Date wound on stomach [...] hronic kidney disease September 07, 2024 10:12am Chief Complaint Admit Date sore wound on stomach August 21, 2024 4 :22pm Unknown October 22, 2024 2:10p m Open Wound November 02, 2024 10:36 am Unknown November 09, 2024 8:40 am Reason for Visit Admit Date Chronic abdominal wound infection November 022024 10:36am Multiple drug resistant organism (MDRO) culture positive November 02, 2024 10:36am Open abdominal wall wound November 02, 2024 10:36am Type 2 diabetes mellitus with diabetic c hronic kidney disease November 02, 2024 10:36am Chief Complaint Admit Date Unknown October 22, 2024 2:10p m Open Wound November 02, 2024 10:36 am Unknown November 09, 2024 8:40 am Renal F/u December 02, 2024 3:11p m Reason for Visit Admit Date Chronic abdominal wound infection November 022024 10:36am Multiple drug resistant organism (MDRO) culture positive November 02, 2024 10:36am Open abdominal wall wound November 02, 2024 10:36am Type 2 diabetes mellitus with diabetic c hronic kidney disease November 02, 2024 10:36am CKD (chronic kidney disease) stage 3, GF R 30-59 ml/min December 02, 2024 3:11pm High vitamin D level December 02, 2024 3:11 pm Hyperlipidemia December 02, 2024 3:11p m Hypertensive chronic kidney disease with stage 1 through stage 4 chronic ki December 02, 2024 3:11pm Hypoparathyroidism December 02, 2024 3:11p m Type 2 diabetes mellitus with diabetic c hronic kidney disease December 02, 2024 3:11pm Hyperuricemia December 02, 2024 3:11p m Chief Complaint Admit Date Open Wound February 22, 2025 10:42am L abd pain/wound sent by March 09, 2025 8:39pm Reason for Visit Admit Date [facility] 3:56[facility] Lumbar back pain February 21, 2025 3:56pm Migraine without aura and wi thout status migrainosus, not intractable February 21, 2025 3:56pm PLMD (periodic limb movement disorder) [facility] 2024 3:56pm Tremor February 21, 2025 3:56pm Cutaneous mycosis February 22, 2025 10:42am Open abdominal wall wound January 10:42am Oxygen dependent February 22, 2025 10:42am 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 disease February 22, 2025 10:42am Abdominal wall cellulitis March 09 8:39pm Acute hyperglycemia March 09, 2025 8: 39pm REBEL (acute kidney injury) March 09 8:39pm Refractory nausea and vomiting March 092024 8:39pm Skin candidiasis March 09, 2025 8: 39pm Reason for Visit Admit Date Bilateral carpal tunnel syndrome [facility] [place] 3:56pm Lumbar back pain February 21, 2025 3:56pm Migraine without aura and wi thout status migrainosus, not intractable February 21, 2025 3:56pm PLMD (periodic limb movement disorder) [facility] 2024 3:56pm Tremor February 21, 2025 3:56pm Cutaneous mycosis February 22, 2025 10:42am Open abdominal wall wound January 10:42am Oxygen dependent February 22, 2025 10:42am 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 disease February 22, 2025 10:42am Abdominal wall cellulitis March 09 8:39pm Acute hyperglycemia March 09, 2025 8: 39pm Acute kidney injury superimp osed on chronic kidney disease March 09, 2025 8:39pm REBEL (acute kidney injury) March 09 8:39pm Refractory nausea and vomiting March 092024 8:39pm Skin candidiasis March 09, 2025 8: 39pm Chief Complaint Admit Date Renal F/u December 02, 2024 3:11p m Open Wound February 01, 2025 8:42am Reason for Visit Admit Date CKD (chronic kidney disease) stage 3, GF R 30-59 ml/min December 02, 2024 3:11pm Hyperlipidemia December 02, 2024 3:11p m Hypertensive chronic kidney disease with stage 1 through stage 4 chronic ki December 02, 2024 3:11pm Hypoparathyroidism December 02, 2024 3:11p m 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 disease December 02, 2024 3:11pm Hyperuricemia December 02, 2024 3:11p m Cutaneous mycosis February 01, 2025 8:42am Open abdominal wall wound February 01, 2025 8:42am Oxygen dependent February 01, 2025 8:42am 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 disease February 01, 2025 8:42am Reason for Referral SpecialtyDiagnoses / ProceduresReferred By ContactReferred To Contact Diagnoses Non-pressure chronic ulcer of skin of 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 ([facility]) Procedures Optifoam Gentle Sacrum Jayleen Nicole, LABOR[address] ROAD-MEDICAL PSYCHOTHERAPIST [address] [place] [address] Referral IDStatusReasonStart DateExpiration DateVisits RequestedVisits [id number] [id number] / ProceduresReferred By ContactReferred To Contact Diagnoses Non-pressure chronic ulcer of skin of 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 ([facility]) Procedures VASHE/HYPOCHLOROUS ACID Jayleen Nicole, LABOR[address] ROAD-MEDICAL PSYCHOTHERAPIST [address] [place] [address] Referral IDStatusReasonStart DateExpiration DateVisits RequestedVisits [id number] [id number] / ProceduresReferred By ContactReferred To Contact Procedures Discharge Follow-Up Manolo Padilla, LABORER ROAD-MEDICAL PSYCHOTHERAPIST [address], [place] [address] Referral IDStatusReasonStart DateExpiration DateVisits RequestedVisits [id number] Review/[id number] / ProceduresReferred By ContactReferred To Contact Diagnoses Wound infection Procedures Follow-up with primary care provider Manolo Padilla, LABORER ROAD-MEDICAL PSYCHOTHERAPIST [address], [facility] [address] [place] [address] Referral IDStatusReasonStart DateExpiration DateVisits RequestedVisits [id number] Review/[id number] / ProceduresReferred By ContactReferred To Contact Procedures Adult diet Manolo Padilla, LABOR[address] RO[address]-MEDICAL PSYCHOTHERAPIST [address], [facility] [address] [place] [address] Referral IDStatusReasonStart DateExpiration DateVisits RequestedVisits [id number] Review/[id number] / ProceduresReferred By ContactReferred To Contact Procedures Wound care (specify) Quinton Weber, LABOR[address] ROAD-MEDICAL PSYCHOTHERAPIST [address] [facility] [address] [place] [address] Referral IDStatusReasonStart DateExpiration DateVisits RequestedVisits [id number] Review/[id number] / ProceduresReferred By ContactReferred To Contact Diagnoses Dysphagia, unspecified type Procedures Fluoroscopy esophagus Renee Dubose, LABORER ROAD-MEDICAL PSYCHOTHERAPIST [address] [place] [address] Referral IDStatusReasonStart DateExpiration DateVisits RequestedVisits [id number] Review/ Additional Source Comments INFORMATION SOURCE (unrecogn ized section and content) DATE CREATED AUTHOR 11/18/2017 [facility] DATE CREATED AUTHOR AUTHOR'S ORGANIZ ATION 11/18/2017 [facility] DATE CREATED AUTHOR AUTHOR'S ORGANIZ ATION 11/16/2020 [facility] DATE CREATED AUTHOR AUTHOR'S ORGANIZ ATION 08/20/2022 [facility] DATE CREATED AUTHOR AUTHOR'S ORGANIZ ATION 09/02/2023 [facility] DATE CREATED AUTHOR AUTHOR'S ORGANIZ ATION 11/23/2024 [facility] DATE CREATED AUTHOR AUTHOR'S ORGANIZ ATION 01/08/2025 [facility] DATE CREATED AUTHOR AUTHOR'S ORGANIZ ATION 03/15/2025 [facility] DATE CREATED AUTHOR AUTHOR'S ORGANIZ ATION 03/31/2025 [facility] EPIC REASON FOR VISIT (unrecogniz ed section and content) ReasonCommentsDM Foot CareDm NailsReasonCommentsInsect BitePt presents today for a spider bite on her abdomen. She states that this happened about 3 weeks ago and she was trying to treat herself at home. She states that was washing it with a wound wash and applying neosporin. She states that it was getting really painful on Friday so she went to [facility]. She states that there are 2 bites on her abdomen. She states that she has them covered right now so the pain is not that bad. She denies any swelling or redness. She states that there was liquids coming outReasonCommentsDifficulty SwallowingTrouble swallowingReason CommentsWound CheckSpecialtyDiagnoses / ProceduresReferred By ContactReferred To Contact Diagnoses Wound infection Ghanshyam Mayberry MD [address], [facility] [address] [place] [address] Referral IDStatusReasonStart DateExpiration DateVisits RequestedVisits [id number] CheckReasonCommentsWound CheckReason CommentsWound CheckReasonCommentsWound CheckReasonOnset DateCommentsMed Refill 08/02/2024ReasonCommentsTremorsReasonCommentsDM Foot CareDm nail careReason CommentsDiabetesFollow-up09/22/24 A1C 9.7%ReasonCommentsDM Foot CareReason Commentsformer patientPt states she has had pneumonia 3x's and would like to see what antibiotics she can take.ReasonCommentsDiabetesFollow-upReasonComments DiabetesFollow-up Care Teams (unrecognized sec tion and content) Team Status: Active Member Role Status Dates NON STAFF Primary Care Provider Active Team Status: Active Member Role Status Dates Ann Fournier TRUCKING SUPERVISOR-C Primary Care Provider Active Start: September 22, 2024 Annetta Glasgow ProviderActiveStart: September 22, 2024 Team Status: Inactive Member Role Status Dates Kamran Chatterjee MD Attending Provider Active Sta rt: October 22, 2024 End: October 22, 2024 Team Status: Inactive Member Role Status Dates Ann Fournier NP-C Primary Care Provider Active Start: November 02, 2024 End: November 02Annetta Banda ProviderActiveStart: November 02, 2024 End: November 02, 2024 Team Status: Inactive Member Role Status Dates Kamran Chatterjee MD Attending Provider Active Sta rt: November 09, 2024 End: November 09, 2024 Team Status: Inactive Member Role Status Dates Anila Granados MD Attending Provider Active Start : December 02, 2024 End: December 02, 2024NON STAFFPrima Care ProviderActiveStart: December 02, 2024 End: December 02, 2024 Team Status: Active Member Role Status Dates Ann Fournier NP-C Primary Care Provider Active Team Status: Inactive Member Role Status Dates Ann Fouriner TRUCKING SUPERVISOR-C Primary Care Provider Active Start: August 11, 2024 End: August 11Petros Villalobos ProviderActiveStart: August 11, 2024 End: August 11, 2024 Team Status: Active Member Role Status Dates Ann Fournier TRUCKING SUPERVISOR-C Primary Care Provider Active Start: August 17, 2024 Annetta Richard ProviderActiveStart: August 17, 2024 Team Status: Inactive Member Role Status Dates Ann Fournier NP-C Primary Care Provider Active Start: August 21, 2024 End: August 21, 2024Elizabet Merchant ProviderActiveStart: August 21, 2024 End: August 21, 2024 Team Status: Active Member Role Status Dates Ann Fournier TRUCKING SUPERVISOR-C Primary Care Provider Active Start: July 27, 2024 Annetta Richard ProviderActiveStart: July 27, 2024 Team Status: Inactive Member Role Status Dates Arthur Moy MD Attending Provider Active Team Status: Inactive Member Role Status Dates Ann Fournier TRUCKING SUPERVISOR-C Primary Care Provider Active Terra Glasgowending ProviderActive Team Status: Inactive Member Role Status Dates Ann Fournier TRUCKING SUPERVISOR-C Primary Care Provider Active Start: September 03, 2023 End: September 03, 2023Dipesh Gamez ProviderActiveStart: September 03, 2023 End: September 03, 2023 Team Status: Active Member Role Status Dates Ann Fournier TRUCKING SUPERVISOR-C Primary Care Provider Active Start: October 08, 2023 Terra Glasgowending ProviderActiveStart: October 08, 2023 Team Status: Inactive Member Role Status Dates Ann Fournier TRUCKING SUPERVISOR-C Primary Care Provider Active Start: October 09, 2023 End: October 08Annetta Nevarez ProviderActiveStart: October 09, 2023 End: October 09, 2023 Team Status: Inactive Member Role Status Dates Ann Fournier TRUCKING SUPERVISOR-C Primary Care Provider Active Start: March 16, 2024 End: March 16, 2024Arun Riggins MDEmerwhite river medical centercy ProviderActiveStart: March 16, 2024 End: March 16, 2024 Team Status: Active Member Role Status Dates Ann Fournier TRUCKING SUPERVISOR-C Primary Care Provider Active Start: March 17, 2024 GE[place]GIA Turner-Erik ProviderActiveStart: March 17, 2024 Ton Meraz Provider, Attending ProviderActiveStart: March 17, 2024 Team MemberRelationshipSpecialtyStart DateEnd Date Kamran Chatterjee MD [address] [place] [phone] [facility] Team Status: Inactive Member Role Status Dates Ann Fournier TRUCKING SUPERVISOR-C Primary Care Provider Active Start: March 17, 2024 End: March 24Petros Villalobos ProviderActiveStart: March 17, 2024 End: March 24, 2024Ton Meraz ProviderActiveStart: March 17, 2024 End: March 24Mimi Banda ProviderActiveStart: March 17, 2024 End: March 24, 2024Mimi Chan ProviderActiveStart: March 17, 2024 End: March 24, 2024Billy Nickerson MDAttending ProviderActiveStart: March 17, 2024 End: March 24, 2024 Team Status: Active Member Role Status Dates Ann Fournier TRUCKING SUPERVISOR-C Primary Care Provider Active Start: March 18, 2024 Petros Turner ProviderActiveStart: March 18, 2024 Ton Meraz Provider, Other ProviderActiveStart: March 18, 2024 Mimi Richard ProviderActiveStart: March 18, 2024 Terra Chanending Provider, Other ProviderActiveStart: March 18, 2024 Team Status: Active Member Role Status Dates Ann Fournier TRUCKING SUPERVISOR-C Primary Care Provider Active Start: March 30, 2024 Annetta Richard ProviderActiveStart: March 30, 2024 Team Status: Inactive Member Role Status Dates Ann Fournier TRUCKING SUPERVISOR-C Primary Care Provider Active Start: April 05, 2024 End: April 05Elizabet Bull ProviderActiveStart: April 05, 2024 End: April 05, 2024Team MemberRelationshipSpecialtyStart DateEnd Date Kamran Chatterjee MD [facility] [place] [address] PCP - [facility] Medicine10/23/22Team MemberRelationshipSpecialtyStart DateEnd Date Kamran Chatterjee MD [address] [place] [facility] [place] [address] PCP - GeneralFamily Medicine10/23/22Team MemberRelationshipSpecialtyStart DateEnd Date Kamran Chatterjee MD [address] [facility] [place] [address] PCP - GeneralFamily Medicine10/23/22Team MemberRelationshipSpecialtyStart DateEnd Date Kamran Chatterjee MD [address] [facility] [place] [address] PCP - GeneralFamily Medicine10/23/22Team MemberRelationshipSpecialtyStart DateEnd Date Kamran Chatterjee MD [address] [place] [facility] [place] [address] PCP - GeneralFamily Medicine10/23/22Team MemberRelationshipSpecialtyStart DateEnd Date Ann Fournier, LABORER ROAD-MEDICAL PSYCHOTHERAPIST [address] [facility] [place] [address] PCP - GeneralFamily Medicine08/14/23Team MemberRelationshipSpecialtyStart DateEnd Date Ann Fournier, LABOR[address] ROAD-MEDICAL PSYCHOTHERAPIST [address] [facility] [place] [address] PCP - GeneralFamily Medicine08/14/23Team MemberRelationshipSpecialtyStart DateEnd Date Ann Fournier, LABORER ROAD-MEDICAL PSYCHOTHERAPIST [address] [facility] [place] [address] PCP - GeneralFamily Medicine08/14/23Team MemberRelationshipSpecialtyStart DateEnd Date Ann Fournier, LABORER ROAD-MEDICAL PSYCHOTHERAPIST [address] [facility], [place] [address] PCP - GeneralFamily Medicine08/14/23Team MemberRelationshipSpecialtyStart DateEnd Date Ann Fournier, LABORER ROAD-MEDICAL PSYCHOTHERAPIST [address] [facility], [place] [address] PCP - GeneralFamily Medicine02/20/24Team MemberRelationshipSpecialtyStart DateEnd Date Ann Fournier, LABORER ROAD-MEDICAL PSYCHOTHERAPIST [address] [facility], [place] [address] PCP - GeneralFamily Medicine08/14/23Team MemberRelationshipSpecialtyStart DateEnd Date Ann Fournier, LABORER ROAD-MEDICAL PSYCHOTHERAPIST [address] [facility], [place] [address] PCP - GeneralFamily Medicine02/20/24Team MemberRelationshipSpecialtyStart DateEnd Date Ann Fournier, LABORER ROAD-MEDICAL PSYCHOTHERAPIST [address] [facility], [place] [address] PCP - GeneralFamily Medicine08/14/23Team MemberRelationshipSpecialtyStart DateEnd Date Ann Fournier, LABORER ROAD-MEDICAL PSYCHOTHERAPIST [address] [facility], [place] [address] PCP - GeneralFamily Medicine02/20/24Team MemberRelationshipSpecialtyStart DateEnd Date Ann Fournier, LABORER ROAD-MEDICAL PSYCHOTHERAPIST [address] [facility], [place] [address] PCP - GeneralFamily Medicine08/14/23Team MemberRelationshipSpecialtyStart DateEnd Date Ann Fournier, LABORER ROAD-MEDICAL PSYCHOTHERAPIST [address] [facility], [place] [address] PCP - GeneralFamily Medicine02/20/24Team MemberRelationshipSpecialtyStart DateEnd Date Ann Fournier, LABORER ROAD-MEDICAL PSYCHOTHERAPIST [address] [facility], [place] [address] PCP - GeneralFamily Medicine02/20/24Team MemberRelationshipSpecialtyStart DateEnd Date Kamran Chatterjee MD [address] [place] [facility] [place] [address] PCP - GeneralFamily Medicine10/23/22Team MemberRelationshipSpecialtyStart DateEnd Date Kamran Chatterjee MD [address] [place] [facility] [place] [address] PCP - GeneralFamily Medicine10/23/22 Angelia Worley PA [facility] [place], [place] [id number] Physician AssistantNeurology08/10/24Team MemberRelationshipSpecialtyStart DateEnd Date Kamran Chatterjee MD [address] [place] [facility] [place] [address] PCP - GeneralFamily Medicine10/23/22 Angelia Worley PA [address] [place] [address] Physician AssistantNeurology08/10/24Team MemberRelationshipSpecialtyStart End Kamran Chatterjee MD [address] [facility] [place] [address] PCP - GeneralFamily Medicine10/23/22 Angelia Worley PA [address] [place] [address] Physician AssistantNeurology08/10/24Team MemberRelationshipSpecialtyStart DateEnd Kamran Chatterjee MD [address] [facility] [place] [address] PCP - GeneralFamily Medicine10/23/22 Angelia Worley PA [address] [place] [address] Physician AssistantNeurology08/10/24Team MemberRelationshipSpecialtyStart End Kamran Chatterjee MD [address] [facility] [place] [address] PCP - GeneralFamily Medicine10/23/22 Angelia Worley PA [address] [place] [address] Physician AssistantNeurology08/10/24 Team Status: Active Member Role Status Dates Ann Fournier , TRUCKING SUPERVISOR-C Primary Care Provider Active Start: September 07, 2024 Annetta Richard ProviderActiveStart: September 07, 2024 Team Status: Active Member Role Status Dates Ann Fournier TRUCKING SUPERVISOR-C Primary Care Provider Active Start: November 02, 2024 Annetta Richard ProviderActiveStart: November 02, 2024 Team MemberRelationshipSpecialtyStart DateEnd Date Kamran Chatterjee MD [address] [place] [address] [facility]10/23/22 Angelia Worley PA [address] [place] [address] Physician AssistantNeurology08/10/24Team MemberRelationshipSpecialtyStart DateEnd Date Kamran Chatterjee MD [address] [place] [address] [facility]10/23/22 Angelia Worley PA [address] [place] [address] Physician AssistantNeurology08/10/24Team MemberRelationshipSpecialtyStart DateEnd Date Kamran Chatterjee MD [address] [place] [address] [facility] - [facility]10/23/22 Angelia Worley PA [address] [place] [address] Physician AssistantNeurology08/10/24Team MemberRelationshipSpecialtyStart DateEnd Date Kamran Chatterjee MD [address] [place] [address] [facility] - [facility]10/23/22 Angelia Worley PA [address] [place] [address] Physician AssistantNeurology08/10/24Team MemberRelationshipSpecialtyStart DateEnd Kamran Chatterjee MD [address] [place] [phone] PCP - [facility] Medicine10/23/22 Angelia Worley PA [address] [place] [address] Physician AssistantNeurology08/10/24Team MemberRelationshipSpecialtyStart End Kamran Chatterjee MD [address] [place] [phone] PCP - [facility]10/23/22 Angelia Worley PA [address] [place] [phone] Physician AssistantNeurology08/10/24Team MemberRelationshipSpecialtyStart End Kamran Chatterjee MD [address] [place] [phone] PCP - [facility] Medicine10/23/22 Angelia Worley PA [address] [place] [address] Physician AssistantNeurology08/10/24 Team Status: Inactive Member Role Status Dates Leticia Fine APRN Attending Provider Active Start: February 21, 2025 End: February 21, 2025Ann Fournier TRUCKING SUPERVISOR-[facility] ProviderActive Start: February 21, 2025 End: February 21, 2025 Team Status: Active Member Role Status Dates Troy Moya MD Attending Provider Active Sta rt: February 22, 2025 Ann Fournier NP-CPrimary Care ProviderActiveStart: February 22, 2025 Team Status: Active Member Role Status Dates Ann Fournier TRUCKING SUPERVISOR-C Primary Care Provider Active Start: March 09, 2025 AALIYAH TurnerCEmsaray ProviderActiveStart: March 09, 2025 Antonio Newton DOAdmit ProviderActiveStart: March 09, 2025 Antonio Newton DOAttending ProviderActiveStart: March 09, 2025 Team Status: Active Member Role Status Dates Ann Fournier NP-C Primary Care Provider Active Start: March 09, 2025 Petros Turner ProviderActiveStart: March 09, 2025 Antonio Newton DOAdmit ProviderActiveStart: March 09, 2025 Audra Wheat MDOther ProviderActiveStart: March 09, 2025 Antonio Jenkins MDAttending ProviderActiveStart: March 09, 2025 Antonio Jenkins MDOther ProviderActiveStart: March 09, 2025 Team Status: Active Member Role Status Dates Troy Moya MD Attending Provider Active Sta rt: February 01, 2025 Ann Fournier NP-CPrimary Care ProviderActiveStart: February 01, 2025 Team MemberRelationshipSpecialtyStart DateEnd Date Kamran Chatterjee MD [address] [place] [address] PCP - GeneralFamily Medicine10/23/22 Angelia Worley PA [address] [place] [address] Physician AssistantNeurology08/10/24Team MemberRelationshipSpecialtyStart DateEnd Date Kamran Chatterjee MD [address] [place] [address] PCP - GeneralFamily Medicine10/23/22 Angelia Worley PA [address] [place] [address] Physician AssistantNeurology08/10/24 Goals (unrecognized section and content) Type Treatment Intervention Code Status: Full Code Goals may be documented in an alternate section Scheduled Active and Recently Administ ered Medications (unrecognized section and content) Medication Order02/24//// allopurinoL (ZYLOPRIM) tablet 300 mg 300 mg, oral, Daily, First dose on Fri02/21/24 at 1200, Look-alike/sound-alike medication - verify indication for use. * 0917 (Given - Provider: Chema Soliz RN) * 0843 (Given - Provider: Lily Gomez, RIGOBERTO) * 0828 (Given - Provider: Chema Soliz RN) cyclobenzaprine (FLEXERIL) tablet 10 mg 10 mg, oral, Nightly, First dose on Fri02/21/24 at 2200 * 2258 (Given - Provider: Yandy Crooks, RIGOBERTO) * 2110 (Given - Provider: Briseida Shaver, RIGOBERTO) * 2200 (Due) fluconazole (DIFLUCAN) tablet 200 mg 200 mg, oral, Daily, First dose on Fri02/24/24 at 1530, HAZARDOUS - Handle with care. Look-alike/sound-alike medication - verify indication for use., Indication: Intra-abdominal infection * 0917 (Given - Provider: Chema Soliz RN) * 0843 (Given - Provider: Lily Gomez, RIGOBERTO) * 0829 (Given - Provider: Chema Soliz, RIGOBERTO) fluticasone furoate-vilanteroL (BREO ELLIPTA) 200-25 mcg/dose inhaler 1 puff 1 puff, inhalation, Daily, First dose on 02/21/24 at 1300 * 0942 (Given - Provider: Eusebia Garrett RCP) * 1135 (Given - Provider: Sammie Dowd RCP) * 1009 (Given - Provider: Sarah Robertson, ICING MAKER) heparin (porcine) injection 5,000 Units 5,000 Units, subcutaneous, Every 8 hours scheduled, First dose (after last modification) on Fri02/24/24 at 1400, Notify prescriber if INR greater than 1.9, hemoglobin less than 10 mg/dL, aPTT greaterthan 40 seconds, and/or platelet count less than 100,000/mm Look-alike/sound-alike medication - verify indication for use. Observe for bleeding. * 0528 (Given - Provider: Lissette Acuña RN) * 1426 (Given - Provider: Chema Soliz RN) * 2200 (Given - Provider: Yandy Crooks, RN) * 0624 (Given - Provider: Yandy Crooks, RN) * 1400 (Given - Provider: Lily Gomez, RIGOBERTO) * 2106 (Given - Provider: Briseida Shaver, RN) * 0526 (Given - Provider: Briseida Shaver, RN) * 1327 (Given - Provider: hCema Soliz RN) * 2200 (Due) insulin lispro (HumaLOG) injection 3-18 Units 3-18 Units, subcutaneous, 4 times daily with meals and nightly, First dose (after last modification) on Fri02/24/24 at 1200, Sliding scale hyperglycemia dosing. For blood glucose 151-200 mg/dL, give 3 units. For blood glucose 201-250 mg/dL, give 6 units. For blood glucose 251-300 mg/dL, give 9 units. For blood glucose 301-350 mg/dL, give 12 units. For blood glucose 351-400 mg/dL, give 15 units. For blood glucose 401-450 mg/dL, give 18 units Give even if NPO or meals skipped. Do NOT give more often then every 4 hours when NPO. Notify prescriber if blood glucose greater than 450 mg/dL. Look-alike/sound-alike medication - verify indication for use. Prime with 2 units of insulin prior to adminis tration. Prandial/supplemental Insulin. Pre-filled pens stable 28 days at room temperature. Insulinlispro should be administered within 15 minutes before or immediately after a meal. * 0753 (Given - Provider: Chema Soliz RN - Comment: 257 met panel) * 1200 (Given - Provider: Chema Soliz RN - Comment: 322 fsbs) * 1611 (Given - Provider: Chema Soliz RN - Comment: 407 fsbs) * 2200 (Not Given - Provider: Yandy Crooks RN - Reason: IV infusing) * 2309 (Given - Provider: Yandy Crooks RN) * 0843 (Given - Provider: Lily Gomez, RN) * 1201 (Given - Provider: Lily Gomez RN) * 1621 (Given - Provider: Lily Gomez RN) * 2111 (Given - Provider: Briseida Shaver RN - Comment: bs 343) * 0829 (Given - Provider: Chema Soliz RN) * 1136 (Given - Provider: Chema Soliz RN - Comment: 326 fsbs) * 1738 (Given - Provider: Brittany Orozco RN) * 2200 (Due) levothyroxine (SYNTHROID, LEVOTHROID) tablet 150 mcg 150 mcg, oral, Daily, First dose on Fri02/21/24 at 1200, Look-alike/sound-alike medication. Verify indication for use Administer on empty stomach at least ONE hour before or TWO hours after food Enteral Feeding: For 7 days or less of tube feeding- do NOT hold tube feedings, after 7 days- hold tube feedings ONE hour before and ONE hour after administration DOES NOT APPLY TO NEONATES Monitor thyroid function tests weekly * 0528 (Given - Provider: Lissette Acuña RN) * 0624 (Given - Provider: Yandy Crooks RN) * 0527 (Given - Provider: Briseida Shaver RN) meropenem (MERREM) 1,000 mg in sodium chloride 0.9 % 100 mL IVPB 1,000 mg, intravenous, at 40 mL/hr, Administer over 3 Hours, Every 12 hours, First dose on Fri02/25/24 at 0400, 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, Indication: SSTI, Authorizing Service: IDconsult has been placed, I acknowledge that an appropriate consult is REQUIRED to use this drug at [facility], [facility] and [facility] per [facility]-approved policy # MM 1.15: Yes * 0433 (New Bag - Provider: Lissette Acuña RN) * 0733 (Stop Bag - Provider: Chema Soliz RN) * 1618 (New Bag - Provider: Chema Soliz RN) * 1918 (Stop Bag - Provider: Yandy Crooks, RN) * 0443 (New Bag - Provider: Yandy Crooks, RN) * 0744 (Stop Bag - Provider: Lily Gomez, RIGOBERTO) * 1621 (New Bag - Provider: Lily Gomez, RIGOBERTO) * 1712 (Rate/Dose Verify - Provider: Lily Gomez, RIGOBERTO) * 1921 (Stop Bag - Provider: Briseida Shaver, RN) * 0351 (New Bag - Provider: Briseida Shaver RN) * 0651 (Stop Bag - Provider: Briseida Shaver, RIGOBERTO) * 1519 (New Bag - Provider: Brittany Orozco RN) * 1817 (Paused - Provider: Brittany Orozco RN) * 1820 (Restarted - Provider: Brittany Orozco RN) * 1822 (Stop Bag - Provider: Brittany Orozco RN) metoprolol tartrate (LOPRESSOR) tablet 75 mg 75 mg, oral, 2 times daily, First dose on 02/21/24 at 1200, Look-alike/sound-alike medication - verify indication for use., Indications: hypertension * 0917 (Given - Provider: Chema Soliz RN) * 2018 (Given - Provider: Yandy Crooks RN) * 0900 (Not Given - Provider: Lily Gomez RN - Reason: Order parameters not met) * 210 (Given - Provider: Briseida Shaver, RIGOBERTO) * 0843 (Given - Provider: Chema Soliz RN) * 2100 (Due) montelukast (SINGULAIR) tablet 10 mg 10 mg, oral, Nightly, First dose on 02/21/24 at 2200, Look-alike/sound-alike medication - verifyindication for use. * 2258 (Given - Provider: Yandy Crooks RN) * 211 (Given - Provider: Briseida Shaver, RIGOBERTO) * 2200 (Due) pantoprazole (PROTONIX) EC tablet 40 mg 40 mg, oral, Every morning before breakfast, First dose on 02/21/24 at 0600, Look-alike/sound-alike medication - verify indication for use. If patient is receiving enteral feeding, consider alternative PPI or continue IV pantoprazole until the delayed-release tablet can be taken orally, Indication: GERD * 0528 (Given - Provider: Lissette Acuña RN) * 0624 (Given - Provider: Yandy Crooks RN) * 0526 (Given - Provider: Briseida Shaver RN) pregabalin (LYRICA) capsule 75 mg 75 mg, oral, 3 times daily, First dose on 02/21/24 at 1200, Look-alike/sound-alike medication. Verify indication for use * 0528 (Given - Provider: Lissette Acuña RN) * 1426 (Given - Provider: Chema Soliz RN) * 2256 (Given - Provider: Yandy Crooks RN) * 0624 (Given - Provider: Yandy Crooks RN) * 1400 (Given - Provider: Lily Gomez, RIGOBERTO) * 2107 (Given - Provider: Briseida Shaver, RIGOBERTO) * 0526 (Given - Provider: Briseida Shaver RN) * 1327 (Given - Provider: Chema Soliz RN) * 2200 (Due) sodium hypochlorite (DAKIN'S 1/4 STRENGTH) 0.125 % external solution 1 Application 1 Application, topical, 2 times daily, First dose on Fri02/23/24 at 1100, Moistened gauze directly to wound bed, do not apply over periwound * 0947 (Given - Provider: Chema Soliz RN) * 2100 (Not Given - Provider: Yandy Crooks RN - Reason: Other) * 0843 (Given - Provider: Lily Gomez, RIGOBERTO) * 2108 (Given - Provider: Briseida Shaver RN) * 0834 (Given - Provider: Chema Soliz RN) * 2100 (Due) vancomycin (VANCOCIN) 1,500 mg in sodium chloride 0.9 % 500 mL IVPB 1,500 mg, intravenous, at 353 mL/hr, Administer over 90 Minutes, Every 24 hours, First dose (after last modification) on Fri02/24/24 at 2100, VESICANT (YELLOW), Indication: Uncomplicated skin andsoft tissue infection * 2016 (New Bag - Provider: Yandy Crooks, RN) * 2146 (Stop Bag - Provider: Yandy Crooks, RN) * 2107 (New Bag - Provider: Briseida Shaver, RN) * 2237 (Stop Bag - Provider: Briseida Shaver RN) * 2099 (Due) Medication Order02/24//// acetaminophen (TYLENOL) tablet 650 mg 650 mg, oral, Every 4 hours PRN, mild pain - pain scale 1-3, temperature greater than 38 C, headaches, Temperature greater than 38.3 C, Starting on Fri02/20/24 at 1854, [Warning: Total Acetaminophen not to exceed more than 4 grams (4000 mg) in 24 hours] * 0538 (Given - Provider: Lissette Acuña RN) * 2307 (Given - Provider: Yandy Crooks RN) * 2106 (Given - Provider: Briseida Shaver, RIGOBERTO) benzonatate (TESSALON PERLES) capsule 100 mg 100 mg, oral, 3 times daily PRN, cough, Starting on Fri02/26/24 at 2104, Do not crush, chew or dissolve. * 215 (Given - Provider: Briseida Shaver, RIGOBERTO) * 0530 (Given - Provider: Briseida Shaver, RN) * 1327 (Given - Provider: Chema Soliz RN) dextrose (GLUTOSE) 40 % gel 15 g 15 g, oral, As needed, low blood sugar, blood glucose less than 70 mg/dL, Starting on Fri02/20/24 at 1854, If patient conscious and taking PO. If blood glucose is not greater than 70 mg/dL after initial treatment, repeat treatment. dextrose 5 % (D5W) infusion 100 mL/hr, intravenous, Continuous PRN, blood glucose less than 70 mg/dL, Starting on Fri02/20/24 at 1854, Use immediately following dextrose 50% or glucagon treatment for patients who are unconscious or NPO. Contact prescriber for additional orders. If blood glucose is not greater than 70 mg/dL after initial treatment, repeat treatment. dextrose 50 % in water (D50W) 50% solution 25 mL 25 mL, intravenous, As needed, low blood sugar, blood glucose less than 70 mg/dL and unconscious orNPO with IV access, Starting on Fri02/20/24 at 1854, Push over 1-3 minutes STAT. If conscious and not NPO, immediately follow with meal tray or high protein (7 grams) snack if tray not available. If NPO, initiate 5% dextrose in water at 100 mL/hr and contact prescriber for additional orders. If blood glucose is not greater than 70 mg/dL after initial treatment, repeat treatment. VESICANT (RED) Warning: HYPERTONIC solution. glucagon HCL injection 1 mg 1 mg, intramuscular, As needed, low blood sugar, blood glucose less than 70 mg/dL and unconscious or NPO without IV access., Starting on Fri02/20/24 at 1854, If conscious and not NPO, immediately follow with meal tray or high protein (7Grams) snack if tray not available. If NPO, initiate IV 5% Dextr ose/Water at 100 mL/hr and contact prescriber for additional orders. If blood glucose is not greater than 70 mg/dL after initial treatment, repeat treatment. HYDROcodone-acetaminophen (NORCO) 5-325 mg per tablet 1 tablet 1 tablet, oral, Every 4 hours PRN, severe pain - pain scale 7-10, Starting on 02/21/24 at 1031, Look-alike/sound-alike medication - verify indication for use. * 0750 (Given - Provider: Chema Soliz RN) * 1643 (Given - Provider: Chema Soliz RN) * 2307 (Given - Provider: Yandy Crooks RN) * 0828 (Given - Provider: Chema Soliz RN) * 1327 (Given - Provider: Chema Soliz RN) ipratropium-albuteroL (DUONEB) 0.5 mg-3 mg(2.5 mg base)/3 mL nebulizer solution 3 mL 3 mL, nebulization, Every 4 hours PRN, wheezing, Starting on Danni 02/26/24 at 0327, Implement INPATIENT/ED Bronchodilator Clinical Practice Guidelines? Yes, Document: \[facility].org\epic\EPIC_Reference\Orders\Respiratory Care Guidelines\CPG Bronchodilator 2020.pdf magnesium sulfate IVPB 2000 mg/50 mL in iso-osmotic water (40 mg/mL premix) 2,000 mg, intravenous, at 25 mL/hr, Administer over 120 Minutes, As needed, Magnesium level 1.7 to 1.9 mg/dL, or Ionized Magnesium level 0.45 to 0.5 mmol/L., Starting on Fri02/20/24 at 1855, Recheck magnesium level 4 hours after infusion complete. With each magnesium result continue the replacementorders as needed. * 0843 (New Bag - Provider: Chema Soliz, RN) * 1043 (Stop Bag - Provider: Chema Soliz, RIGOBERTO) magnesium sulfate IVPB 4000 mg/100 mL in iso-osmotic water (40 mg/mL premix) 4,000 mg, intravenous, at 25 mL/hr, Administer over 240 Minutes, As needed, Magnesium level 1.6 mg/dL or less, or Ionized Magnesium level 0.44 mmol/L or less, Starting on Fri02/20/24 at 1854, Recheckmagnesium level 4 hours after infusion complete. With each magnesium result continue the replacement orders as needed. morphine injection 2 mg 2 mg, intravenous, Every 4 hours PRN, severe pain - pain scale 7-10, Starting on Fri02/22/24 at 1102, Look-alike/sound-alike medication - verify indication for use. ondansetron (PF) (ZOFRAN) injection 4 mg 4 mg, intravenous, Every 6 hours PRN, nausea, vomiting, Starting on Fri02/20/24 at 1854, Administerover 2-5 minutes. potassium chloride (KAYCIEL) 20 mEq/15 mL solution 30-50 mEq(Linked Group 1) 30-50 mEq, oral, As needed, potassium supplementation, Starting on Fri02/20/24 at 1854, Progress tooral potassium replacement when patient tolerating oral intake. If dose administered, recheck potassium level 4 hours after last dose. For potassium level 3.4 to 3.8 mmol/L and GFR 30 mL/min or greater=30 mEq. For potassium level 3.1 to 3.3 mmol/L and GFR 30 mL/min or greater=40 mEq. For potassium level 3 mmol/L or less and GFR 30 mL/min or greater=50 mEq. Must dilute before use - Mix in 3-8 ounces of water or juice before administration When administering in feeding tube, flush before and after per policy and monitor potassium levels potassium chloride (KLOR-CON M 20) CR tablet 30-50 mEq(Linked Group 1) 30-50 mEq, oral, As needed, potassium supplementation, Starting on Fri02/20/24 at 1854, Progress tooral potassium replacement when patient tolerating oral intake. If dose administered, recheck potassium level 4 hours after last dose. For potassium level 3.4 to 3.8 mmol/L and GFR 30 mL/min or greater=30 mEq. For potassium level 3.1 to 3.3 mmol/L and GFR 30 mL/min or greater=40 mEq. For potassium level 3 mmol/L or less and GFR 30 mL/min or greater=50 mEq. Do not crush or chew. sennosides-docusate sodium (SENOKOT-S) 8.6-50 mg 1 tablet 1 tablet, oral, Every 12 hours PRN, constipation, Starting on Fri02/20/24 at 1854 sodium chloride 0.9 % flush 3 mL 3 mL, intravenous, As needed, line care, before and after each intermittent use, Starting on Fri02/20/24 at 1626 * 0749 (Given - Provider: Chema Soliz, RIGOBERTO) sodium chloride 0.9 % flush bag 25 mL, intravenous, at 100 mL/hr, Administer over 15 Minutes, As needed, line care, line care afterIVPB administration, Starting on Fri02/20/24 at 1854 * 0432 (New Bag - Provider: Lissette Acuña, RIGOBERTO) * 0433 (Stop Bag - Provider: Chema Soliz, RIGOBERTO) * 0447 (Stop Bag - Provider: Lissette Acuña RN) sodium chloride 0.9 % infusion 20 mL/hr, intravenous, Continuous PRN, to maintain patency of lines, Starting on Fri02/20/24 at 1854 * 1618 (New Bag - Provider: Chema Soliz, RIGOBERTO) * 1618 (Paused - Provider: Lily Gomez RN) * 1918 (Restarted - Provider: Lily Gomez, RIGOBERTO) * 2017 (Paused - Provider: Lily Gomez, RN) * 214 (Restarted - Provider: Lily Gomez, RN) * 0443 (Paused - Provider: Lily Gomez, RN) * 0744 (Restarted - Provider: Lily Gomez, RN) * 0747 (Rate/Dose Verify - Provider: Lily Gomez RN) * 1621 (Stop Bag - Provider: Lily Gomez RN) * 1921 (Restarted - Provider: Chema Soliz RN) * 2108 (Paused - Provider: Chema Soliz RN) * 2238 (Restarted - Provider: Chema Soliz RN) * 2318 (Stop Bag - Provider: Chema Soliz RN) * 0837 (New Bag - Provider: Chema Soliz RN) * 1056 (Rate/Dose Verify - Provider: Chema Soliz RN) * 1904 (Rate/Dose Verify - Provider: Brittany Orozco RN) Order Group 1: potassium chloride (KLOR-CON M 20) CR tablet 30-50 mEqJump to med 30-50 mEq, oral, As needed, potassium supplementation, Starting on Fri02/20/24 at 1854, Progress tooral potassium replacement when patient tolerating oral intake. If dose administered, recheck potassium level 4 hours after last dose. For potassium level 3.4 to 3.8 mmol/L and GFR 30 mL/min or greater=30 mEq. For potassium level 3.1 to 3.3 mmol/L and GFR 30 mL/min or greater=40 mEq. For potassium level 3 mmol/L or less and GFR 30 mL/min or greater=50 mEq. Do not crush or chew. Or potassium chloride (KAYCIEL) 20 mEq/15 mL solution 30-50 mEqJump to med 30-50 mEq, oral, As needed, potassium supplementation, Starting on Fri02/20/24 at 1854, Progress tooral potassium replacement when patient tolerating oral intake. If dose administered, recheck potassium level 4 hours after last dose. For potassium level 3.4 to 3.8 mmol/L and GFR 30 mL/min or greater=30 mEq. For potassium level 3.1 to 3.3 mmol/L and GFR 30 mL/min or greater=40 mEq. For potassium level 3 mmol/L or less and GFR 30 mL/min or greater=50 mEq. Must dilute before use - Mix in 3-8 ounces of water or juice before administration When administering in feeding tube, flush before and after per policy and monitor potassium levels FOR RECORDS PERTAINING TO PATIENTS WHO ARE [...] BE BASED ON THE PRIMARY CLINICAL RECORDS. [facility]. provides no warranty or guarantee of the accuracy or completeness of information in this document.
== END 2025-04-05 13:24 | disposition home or self-care (01) ==
LOC: RAD 13:23
PROVIDERS: PCP Nurse Practitioner Family; Visit Provider Nurse Practitioner Family
DX: M54.9 Dorsalgia, unspecified (principal); M25.551 Pain in right hip; Z13.820 Encounter for screening for osteoporosis; E28.39 Other primary ovarian failure; M51.369 Other intervertebral disc degeneration, lumbar region without mention of lumbar back pain or lower extremity pain; M85.88 Other specified disorders of bone density and structure, other site
CPT/HCPCS: 72100; 73502; 77080